=== PATIENT | male | born 1955 | race Caucasian/White ===

== ENCOUNTER 2023-07-31 14:27 | Outpatient (OUT) | payer MEDICARE, SELFPAY ==
[2023-07-31 15:40] LABS: Prostate Specific Antigen Dx 4.21 ng/mL (<=4.00)
== END 2023-07-31 14:28 | disposition home or self-care (01) ==
LOC: LAB 14:27
PROVIDERS: PCP Internal Medicine; Visit Provider Urology
DX: N40.1 Benign prostatic hyperplasia with lower urinary tract symptoms (principal); R97.20 Elevated prostate specific antigen [PSA]
CPT/HCPCS: 36415; 84153

== ENCOUNTER 2023-09-19 15:12 | Outpatient (OUT) | payer MEDICARE, SELFPAY ==
[2023-09-19 15:57] LABS: Hematocrit 35.3 % (42.0-54.0); Hemoglobin 11.7 g/dL (14.0-18.0); Mean Corpuscular HGB Conc 33.1 g/dL (29.9-35.2); Mean Corpuscular Hemoglobin 30.2 pg (25.9-34.0); Mean Corpuscular Volume 91.2 fL (80.0-94.0); Mean Platelet Volume 9.3 fL (9.5-13.5); Platelet Count 251 10^3/uL (150-450); Red Blood Count 3.87 10^6/uL (4.70-6.10); Red Cell Distribution Width 14.2 % (11.0-15.0); White Blood Count 7.1 10^3/uL (4.0-11.0)
[2023-09-19 16:15] LABS: Alanine Aminotransferase 17 U/L (16-63); Albumin Globulin Ratio 0.9; Albumin Level 3.3 g/dL (3.4-5.0); Alkaline Phosphatase 79 U/L (46-116); Anion Gap 11.7; Aspartate Amino Transferase 15 U/L (15-37); BUN Creatinine Ratio 17.4; Bilirubin Total 0.6 mg/dL (0.2-1.0); Calcium 8.9 mg/dL (8.5-10.1); Carbon Dioxide 28.5 mmol/L (21.0-32.0); Chloride 98 mmol/L (98-107); Chol HDL Ratio 1.8; Cholesterol 203 mg/dL (<=200); Estimated GFR (African America >60 (>=60); Estimated GFR (Non-African Ame >60 (>=60); Globulin 3.8 g/dL; Glucose 86 mg/dL (74-106); HDL Cholesterol 114 mg/dL (40-60); Potassium 4.2 mmol/L (3.5-5.1); Sodium 134 mmol/L (136-145); Total Protein 7.1 g/dL (6.4-8.2); Triglycerides 38 mg/dL (<=150); VLDL CHOLESTEROL 7.6 mg/dL
[2023-09-19 19:02] LABS: Lymphocytes Absolute Manual 0.42 10^3/uL (1.20-3.80); Monocytes Absolute Manual 0.71 10^3/uL (0.30-0.80); Segmented Neut Absolute Manual 5.96 10^3/uL (1.4-6.5)
== END 2023-09-19 15:13 | disposition home or self-care (01) ==
LOC: LAB 15:12
PROVIDERS: PCP Internal Medicine; Visit Provider Internal Medicine
DX: D86.0 Sarcoidosis of lung (principal); I10 Essential (primary) hypertension; I42.8 Other cardiomyopathies; E78.00 Pure hypercholesterolemia, unspecified
CPT/HCPCS: 36415; 80053; 80061; 85007; 85027

== ENCOUNTER 2024-02-01 20:08 | Emergency (ER) | payer MEDICARE, SELFPAY ==
[2024-02-01] VITALS (23 sets, daily range): BP systolic 123–160; BP diastolic 93–121; PULSE 83–142; TEMP 36.6; O2SAT 85–100; BMI 23.1
--- NOTE | 2024-02-01 20:14 | ECG_ITS ---
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
--- NOTE | 2024-02-01 20:14 | XR_ITS ---
The [address] [address] Patient Name: MARY SMALL MRN: [id number] date: 1955 Sex: M Assigned Patient Location: ED.MAIN Current Patient Location: ER Accession/Order Number: [id number] Exam Date: 02/01/2024 21:20 Report Date: 02/01/2024 22:12 At the request of: JOSUE DYER Procedure: XR chest 2V EXAM: CHEST X-RAY HISTORY: Chest pain. COMPARISON: CT chest 12/13/2021 TECHNIQUE: 1 view chest is submitted for review. FINDINGS: Lines and tubes: None. The lungs are hyperexpanded. There is a subtle opacities are seen throughout bilateral lung [place]. There is pleural thickening demonstrated bilaterally left greater than right. Trace blunting of costophrenic angles.. Calcifications are seen in the hilar regions. The cardiac silhouette is enlarged.. Comment vascularity is mildly prominent. Osseous structures are within normal limits for patient's age.. XR/XR chest 2V IMPRESSION: 1. Cardiomegaly with bibasilar hilar calcifications. Please correlate for sarcoid.. 2. Hyperexpanded lungs prominence of pleural opacities may represent effusions. However, soft tissue densities not excluded. CT scan of the chest would help better delineate. Electronically authenticated by: JOHN WATERS Date: 02/01/2024 22:12
--- OUTSIDE RECORDS SUMMARY | 2024-02-01 20:15 | XMS_ITS | CCD ---
Author Organization [facility]iniSyn[facility] Care Team Providers Care Central Supply Manager Name Role Phone Adam Wylie Unavailable Unavailable Unavailable ADAM WYLIE Primary Care Physician DO Adam Wylie Primary Care Provider DO Gregg Hilliard Attending Provider Nick Muniz Unavailable Gregg Hilliard Unavailable Adam Wylie Unavailable DR ADAM WYLIE Admitting Unavailable IVON, DR REICH Primary Care Unavailable BALL, DR REICH Consulting Unavailable BALL, DR REICH Attending Unavailable BALL, DR REICH Primary Care Unavailable GOTTI ., DR TINOCO Consulting Unavailable GOTTI ., DR TINOCO Attending Unavailable GOTTI ., DR TINOCO Admitting Unavailable IVON, DR REICH Attending Unavailable BALL, DR REICH Admitting Unavailable BALL, DR REICH Primary Care Unavailable BALL, DR REICH Consulting Unavailable ZIEBER, DR CORINNE Hernandez Consulting Unavailable BALL, DR REICH Attending Unavailable BALL, DR REICH Admitting Unavailable BALL, DR REICH Primary Care Unavailable IVON, DR REICH Consulting Unavailable ANDREA, MATTHEW Consulting Unavailable ANDREA, MATTHEW Attending Unavailable ANDREA, MATTHEW Admitting Unavailable BALL, DR REICH Primary Care Unavailable HAY ., DR GARCIA Attending Unavailable HAY ., DR GARCIA Admitting Unavailable BALL, DR REICH Primary Care Unavailable GRECHNY ., JEANETTE NORMAN Consulting UnavailJAYDEN Clayton Consulting Unavailable ANGELINA ., DR GARCIA Attending Unavailable BALL, DR REICH Primary Care Unavailable HAY ., DR GARCIA Admitting Unavailable HAY ., DR GARCIA Consulting Unavailable ANDREA, MATTHEW Consulting Unavailable DECLAN TRIPLETT Consulting Unavailable CHULA, DR GREGG Doe Consulting Unavailable JACKELINE SANCHEZ Attending Unavailable JACKELINE SANCHEZ Admitting Unavailable IVON, DR REICH Primary Care Unavailable JACKELINE SANCHEZ Consulting Unavailable Clinton GOTTI Attending Unavailable Clinton GOTTI Attending Unavailable Clinton GOTTI Attending Unavailable Adam Wylie DO Primary Care Provider STEVEN GALARZA Attending Unavailable ADAM WYLIE Primary Care Unavailable Allergies Allergy Classification Reported Allergen(s) Allergy Type Date of Onset Reaction(s) Facility (1 source) patient allergy list reviewed by nurse or physicia Propensity to adverse reactions Comment:Done Hoppit Other Medications Current Medications Medication Drug Class(es) Dates Sig (Normalized) Sig (Original) Advair Diskus 500-50 MCG/DOSE (5 sources) Start: 07-09-2018 take 1 puff(s) by inhalation twice daily Advair Diskus 500-50 MCG/DOSE 1 puff Inhalation Twice a day for 90 days Jun, Active [id number] actuat albuterol 0.09 mg/actuat metered dose inhaler (19 sources) beta2-Adrenergic Agonist Start: 09-28-2022 take 2 puff(s) by inhalation every six hours as needed Albuterol Sulfate HFA 108 (90 Base) MCG/ACT 2 puffs Inhalation every 6 hrs, as needed for 30 days September, Active Start: 09-28-2022 take 2 puff(s) by in halation every six hours as needed Albuterol Sulfate HFA 108 (90 Base) MCG/ACT 2 puffs Inhalation every 6 hrs, as needed for 30 days September, Active Start: 09-28-2022 take 2 puff(s) by in halation every six hours as needed Albuterol Sulfate HFA 108 (90 Base) MCG/ACT 2 puffs Inhalation every 6 hrs, as needed for 30 days September, Active Start: 08-16-2022 Albuterol Sulf ate (2.5 MG/3ML) 0.083% 1 unit dose Inhalation four times a day DX J44.9 COPD for 30 days Aug, Active Start: 08-16-2022 Albuterol Sulf ate (2.5 MG/3ML) 0.083% 1 unit dose Inhalation four times a day DX J44.9 COPD for 30 days Aug, Active Start: 08-02-2019 take 2 puff(s) by in halation every four hours albuterol (Ventolin HFA) 90 mcg/actuation inhaler Inhale 2 puffs every 4 hours if needed. 08/02/2019 Active Start: 08-02-2019 take 2 puff(s) by mo uth every four hours as needed for cough Ventolin HFA 108 (90 Base) MCG/ACT Inhalation Aerosol Solution INHALE 2 PUFFS BY MOUTH EVERY 4 HOURS NEEDED FOR COUGH / DYSPNEA Quantity: 36 Refills: 0 Ordered: 18-Jul-2020 DO Start : 02-Aug-2019 Active Start: 05-11-2018 take 1 puff(s) by in halation every six hours Albuterol Sulfate (Ventolin Hfa) 90 mcg/actuation Hfa Aerosol Inhaler Active 2 PUFF INHALATION Q6H May 11, 2018 9:16pm albuterol 0.833 mg/ml / ipratropium bromide 0.167 mg/ml inhalation solution (20 sources) Anticholinergic, beta2-Adrenergic Agonist Start: 09-09-2019 take 3 mL by inhalation every six hours as needed ipratropium-albuteroL (Duo-Neb) 0.5-2.5 mg/3 mL nebulizer solution Inhale 3 mL every 6 hours if needed. 09/09/2019 Active Start: 09-09-2019 Ipratropium-Al buterol 0.5-2.5 (3) MG/3ML Inhalation Solution INHALE 1 (ONE) vial via NEBULIZER TWICE DAILY - FOUR TIMES DAILY Quantity: 360 Refills: 0 Ordered: 21-May-2020 DO Start : 09-Sep-2019 Active Start: 05-11-2018 Ipratropium-Al buterol Active 3 ML INHALATION every 6 to 8 hours May 11, 2018 9:20pm Start: 05-05-2018 take 3 mL by inhalat ion four times daily Ipratropium-Albuterol 0.5-2.5 (3) MG/3ML 3 ml Inhalation Four times a day DX COPD j44.9 for 30 days Apr, Active Start: 05-05-2018 take 3 mL by inhalat ion every six hours Ipratropium-Albuterol 0.5-2.5 (3) MG/3ML 3 ml Inhalation every 6 hrs Apr, Active Albuterol Sulfate (Ventolin Hfa) 90 mcg/actuation Hfa Aerosol Inhaler (1 source) Start: 05-11-2018 take 1 puff(s) by inhalation every six hours Albuterol Sulfate (Ventolin Hfa) 90 mcg/actuation Hfa Aerosol Inhaler Active 2 PUFF INHALATION Q6H May 11, 2018 9:16pm carvedilol 12.5 mg oral tablet (20 sources) alpha-Adrenerg ic Orbert, beta-Adrenergi c Robert Start: 09-11-2019 take 1 tablet by mouth twice daily carvedilol (Coreg) 12.5 mg tablet Take 1 tablet (12.5 mg) by mouth 2 times a day. 09/13/2019 Active Start: 02-10-2019 take 6.25 mg by mout h twice daily Carvedilol Active 6.25 MG PO Twice daily February 10, 2019 12:09am Start: 05-13-2018 End: 02-10-2019 take 1 tablet by mouth twice daily Carvedilol 12.5 MG Oral Tablet TAKE 1 TABLET BY MOUTH TWICE DAILY Quantity: 180 Refills: 3 Ordered: 14-Sep-2021 Concepción Mays Start : 13-Sep-2019 Active Start: 05-11-2018 End: 05-13-2018 take 6.25 mg by mouth twice daily Carvedilol Discontinued 6.25 MG PO Twice daily May 11, 2018 9:16pm May 13, 2018 2:03pm finasteride 5 mg oral tablet (20 sources) 5-alpha Reductase Inhibitor Start: 02-17-2020 take 1 tablet by mouth once daily finasteride 5 mg Tab 5 mg = 1 tab(s), Oral, Daily, # 90 tab(s), Refills(s) 3, Pharmacy: [id number], 182, cm, 08/14/23 15:22:00 EDT, Height/Length Dosing, 82, kg, 08/14/23 15:22:00 EDT, Weight Dosing Start Date: 08/14/23 Status: Ordered fluticasone propionate 0.05 mg/actuat metered dose nasal spray (12 sources) Corticosteroid Start: 09-11-2019 fluticasone 0.05 mg/inh Nasal [place] Nasal, Daily, Refill(s) 0 Start Date: 09/11/19 Status: Ordered Start: 05-11-2018 End: 02-10-2019 Fluticasone Propionate Disco ntinued 1 SPRAY INTRANASAL Daily May 11, 2018 9:20pm February 10, 2019 12:13am Start: 05-05-2018 take 1 spray(s) nasa l route once daily Fluticasone Propionate 50 MCG/ACT 1 spray in each nostril Nasally Once a day for 21 days Apr, Active Start: 05-05-2018 take 1 spray(s) nasa l route once daily Fluticasone Propionate 50 MCG/ACT 1 spray in each nostril Nasally Once a day for 21 days Apr, Active 60 actuat fluticasone propionate 0.5 mg/actuat / salmeterol 0.05 mg/actuat dry powder inhaler (12 sources) Corticosteroid, beta2-Adrenergic Agonist Start: 08-14-2023 Wixela Inhub 50 0 mcg-50 mcg inhalation powder Refill(s) 0 Start Date: 08/14/23 Status: Ordered Start: 09-11-2019 Advair 100 mcg -50 mcg Powder inh, Inhalation, BID, Refill(s) 0 Start Date: 09/11/19 Status: Ordered Start: 07-09-2018 take 1 puff(s) by in halation twice daily Advair Diskus 500-50 MCG/ACT 1 puff Inhalation Twice a day for 90 days Jun, Active Start: 05-13-2018 Fluticasone Pr opion-Salmeterol (Advair Hfa) 230-21 mcg/actuation HFA aerosol inhaler Active 2 INH INHALATION Twice daily May 13, 2018 3:28pm Start: 05-11-2018 End: 05-13-2018 Fluticasone Propion-Salmeter ol (Advair Diskus) 500-50 mcg/dose Blister With Device Discontinued 1 INH INHALATION Twice daily May 11, 2018 9:16pm May 13, 2018 2:03pm fluticasone 0.05 mg/inh Nasal [place] (2 sources) Start: 09-11-2019 fluticasone 0. 05 mg/inh Nasal [place] Nasal, Daily, Refill(s) 0 Start Date: 09/11/19 Status: Ordered furosemide 20 mg oral tablet (12 sources) Loop Diuretic Start: 03-28-2022 furosemide 20 mg Tab Refills(s) 0 Start Date: 08/09/21 Status: Ordered Start: 05-13-2018 End: 02-10-2019 take 1 tablet by mouth once daily Furosemide (Lasix) 40 mg tablet Discontinued 40 MG PO Daily May 13, 2018 2:18pm February 10, 2019 12:10am ipratropium bromide 0.2 mg/ml inhalation solution (10 sources) Anticholinergic Start: 08-16-2022 take 1 [IU] by inhalation four times daily Ipratropium [place] 0.02 % 1 unit dose Inhalation four times a day DX J44.9 COPD for 30 days Aug, Active Start: 08-16-2022 take 1 [IU] by inhal ation four times daily Ipratropium [place] 0.02 % 1 unit dose Inhalation four times a day DX J44.9 COPD for 30 days Aug, Active Start: 09-11-2019 ipratropium mi crogram, QID, Refills(s) 0 Start Date: 09/11/19 Status: Ordered multivitamin (Multiple Vitamins) tablet (1 source) Start: 12-15-2016 take 1 tablet by mouth once daily multivitamin (Multiple Vitamins) tablet Take 1 tablet by mouth once daily. 12/15/2016 Active Oxygen 2 liters pm and prn day (9 sources) Oxygen 2 liters pm and prn day at night and during the day prn Active pantoprazole 40 mg delayed release oral tablet (5 sources) Proton Pump Inhibitor Start: 08-14-[address] Tab Refills(s) 0 Start Date: 08/14/23 Status: Ordered Start: 03-01-2023 Pantoprazole S odium 40 MG 1 tablet Orally Once a day, on an empty stomach 30 minutes prior to bkfst for 90 days Feb, Active take 1 tablet by melissa th once daily before mealtime pantoprazole (ProtoNix) 20 mg EC tablet Take 1 tablet (20 mg) by mouth once daily in the morning. Take before meals. Do not crush, chew, or split. Active predniSONE 5 mg oral tablet (20 sources) Start: 02-10-2019 take 5 mg by mouth once daily Prednisone Active 5 MG PO Daily February 10, 2019 12:07am Start: 07-06-2018 End: 02-10-2019 Prednisone Discontinued 20 M G PO As Directed July 06, 2018 1:40pm February 10, 2019 12:07am administer with food or milk. Take 40mg for 3 days,then 20 mg for 3 days, then 10 mg for 3 days, then continue 5 mg as you used to take Start: 11-18-2010 End: 07-06-2018 take 5 mg by mouth once daily predniSONE 5 mg, Oral, D aily, Refills(s) 0 Start Date: 09/11/19 Status: Ordered sacubitril 24 mg / valsartan 26 mg oral tablet (20 sources) Angiotensin 2 Receptor Robert Start: 05-11-2018 End: 10-12-2024 take 1 tablet by mouth twice daily sacubitriL-valsartan (Entresto) 24-26 mg tablet Indications: Non-ischemic cardiomyopathy (Multi) Take 1 tablet by mouth 2 times a day. 180 tablet 3 10/13/2023 10/12/2024 Active Start: 08-04-2015 take 1 tablet by melissa twice daily Entresto 49-51 MG Oral Tablet TAKE 1 TABLET BY MOUTH TWICE DAILY Quantity: 60 Refills: 0 Ordered: 29-Dec-2015 DO Start : 04-Aug-2015 Active ENTRESTO 24 mg/2 6 mg 1 orally twice a day Active tamsulosin hydrochloride 0.4 mg oral capsule (20 sources) alpha-Adrenergic Robert Start: 10-25-2021 End: 10-25-2021 take 0.4 mg by mouth once daily Tamsulosin Discontinued 0.4 MG PO Daily October 25, 2021 2:08pm October 25, 2021 2:10pm Start: 12-16-2019 End: 12-16-2021 take 1 capsule by mouth twice daily tamsulosin 0.4 mg Cap 0.4 mg = 1 cap(s), Oral, BID, # 180 cap(s), Refills(s) 3, Pharmacy: [id number], 182, cm, 11/28/22 13:12:00 EDT, Height/Length Dosing, 77.5, kg, 11/28/22 13:12:00 EDT, Weight Dosing Start Date: 01/10/23 Status: Ordered Thera Vitamin (9 sources) Thera Vitamin Active tiotropium 0.018 mg inhalation powder (2 sources) Anticholinergic Start: 05-11-2018 take 1 capsule by inhalation once daily Tiotropium [place] (Spiriva With Handihaler) 18 mcg Capsule, W/Inhalation Device Active 1 CAP INHALATION Daily May 11, 2018 9:16pm Ventolin HFA 90 mcg/inh Aerosol-Adpt (1 source) Start: 08-14-2023 Ventolin HFA 90 mcg/inh Aerosol-Adpt Refill(s) 0 Start Date: 08/14/23 Status: Ordered Completed/Discontinued Medications Medication Drug Class(es) Dates Sig (Normalized) Sig (Original) amoxicillin 875 mg oral tablet (2 sources) Penicillin-class Antibacterial Start: 8 End: 9 take 875 mg by mouth twice daily Amoxicillin Discontinued 875 MG PO Twice daily May 11, 2018 9:16pm July 05, 2018 2:03am amoxicillin 875 mg / clavulanate 125 mg oral tablet (2 sources) Penicillin-class Antibacterial Start: 9 End: 2 take 1 tablet by mouth every twelve hours Amoxicillin-Pot Clavulanate (Augmentin) 875-125 mg tablet Discontinued 1 TAB PO Q12H 20 February 11, 2019 12:26pm October 25, 2021 2:09pm Eat yogurt or take probiotic while on antibiotic. cephalexin 500 mg oral capsule (2 sources) Cephalosporin Antibacterial Start: 9 End: 9 take 500 mg by mouth twice daily Cephalexin Discontinued 500 MG PO Twice daily 10 5 July 06, 2018 1:40pm February 10, 2019 12:10am methylPREDNISolone 4 mg oral tablet (2 sources) Corticosteroid Start: 8 End: 9 take 1 tablet by mouth once Methylprednisolone (Medrol (Man)) 4 mg tablets,dose pack Discontinued 0 PO per package directions May 13, 2018 2:21pm July 06, 2018 1:34pm PO PER PKG DIR Multiple Vitamins Oral Tablet (8 sources) Start: 7 Multiple Vitamins Oral Tablet Quantity: 0 Refills: 0 Ordered: 15-Dec-2016 DO Start : 15-Dec-2016 Active polysaccharide iron complex 150 mg oral capsule (2 sources) Start: 8 End: 09-29-201 9 Polysaccharide Iron Complex (Ferrex 150) 150 mg iron Capsule Discontinued 150 MG PO Daily May 11, 2018 9:16pm February 10, 2019 12:11am Problems Active Problems Problem Classification Problem Date Documented Date Episodic/Chronic Abdominal hernia (9 sources) Hiatal hernia; Translations: [Diaphragmatic hernia without obstruction or gangrene] Episodic Administrative/social admission (3 sources) Drug indicated; Translations: [Long-term current use of steroids] Episodic Alcohol-related disorders (1 source) Nondependent alcohol abuse; Translations: [Nondependent alcohol abuse, unspecified pattern of use] Onset: 01-21-2015 Chronic Allergic reactions (1 source) Allergic bronchopulmonary aspergillosis; Translations: [Allergic bronchopulmonary aspergillosis] Onset: 08-12-2015 Chronic Chronic obstructive pulmonary disease and bronchiectasis (20 sources) Chronic obstructive lung disease; Translations: [Chronic airway obstruction, not elsewhere classified] Onset: 2021 Resolved: 10-05-2021 09-11-2019 Chronic Conditions associated with dizziness or vertigo (11 sources) Vertigo; Translations: [Dizziness and giddiness] Onset: 07-26-2023 02-10-2019 Episodic Congestive heart failure; nonhypertensive (12 sources) Chronic systolic heart failure; Translations: [Chronic systolic (congestive) heart failure] 02-10-2019 Chronic Deficiency and other anemia (2 sources) Chronic anemia; Translations: [Anemia in other chronic diseases classified elsewhere] 02-10-2019 Chronic Deficiency and other anemia (1 source) Anemia due to chronic blood loss; Translations: [Iron deficiency anemia secondary to blood loss (chronic)] Onset: 01-10-2016 Chronic Deficiency and other anemia (8 sources) Anemia; Translations: [Anemia, unspecified] 10-26-2021 Episodic Deficiency and other anemia (2 sources) Anemia, unspecified; Translations: [Anemia, unspecified] Onset: 10-07-2021 Resolved: 10-07-2021 Episodic Deficiency and other anemia (9 sources) Iron deficiency anemia; Translations: [Iron deficiency anemia, unspecified] Episodic Diverticulosis and diverticulitis (9 sources) Diverticular disease; Translations: [Diverticulosis of intestine, part unspecified, without perforation or abscess without bleeding] Chronic Esophageal disorders (6 sources) Gastro-esophageal reflux disease with esophagitis; Translations: [Gastroesophageal reflux disease with esophagitis without hemorrhage] Onset: 10-13-2021 Chronic Essential hypertension (17 sources) Hypertensive disorder; Translations: [Essential (primary) hypertension] Onset: 10-09-2015 09-11-2019 Chronic Fluid and electrolyte disorders (9 sources) Hyponatremia; Translations: [Hypo-osmolality and hyponatremia] Onset: 09-18-2015 02-10-2019 Episodic Genitourinary symptoms and ill-defined conditions (4 sources) Urinary incontinence 02-17-2020 Chronic Genitourinary symptoms and ill-defined conditions (20 sources) Retention of urine; Translations: [Retention of urine, unspecified] Onset: 08-02-2016 Episodic Gout and other crystal arthropathies (5 sources) Gout; Translations: [Primary gout] Onset: 12-11-2015 09-11-2019 Chronic Hemorrhoids (11 sources) Internal hemorrhoids; Translations: [Other hemorrhoids] 02-10-2019 Episodic Hyperplasia of prostate (17 sources) Benign prostatic hypertrophy with outflow obstruction; Translations: [Benign prostatic hyperplasia with lower urinary tract symptoms] Onset: 06-24-2016 Chronic Immunity disorders (20 sources) Pulmonary sarcoidosis; Translations: [Sarcoidosis] Onset: 11-11-2015 Resolved: 2021 05-11-2018 Chronic Immunizations and screening for infectious disease (1 source) Vaccination given; Translations: [Encounter for immunization] Episodic Malaise and fatigue (3 sources) Other fatigue; Translations: [Fatigue] Onset: 06-24-2016 Episodic Mood disorders (4 sources) Depressive disorder 09-11-2019 Chronic Mycoses (9 sources) Aspergillosis; Translations: [Aspergillosis, unspecified] Episodic Osteoarthritis (1 source) Localized, primary osteoarthritis of the pelvic region and thigh; Translations: [Unilateral primary osteoarthritis, right hip] Chronic Other aftercare (2 sources) Other long-term (current) drug therapy; Translations: [OTH TOBACCO HANGER CURRENT DRUG THERAPY] Onset: 09-08-2022 Episodic Other aftercare (1 source) Long-term current use of drug therapy; Translations: [Other terminal gauger (current) drug therapy] Episodic Other and ill-defined heart disease (10 sources) Mural thrombus of left ventricle; Translations: [Acute myocardial infarction of unspecified site, episode of care unspecified] Onset: 07-26-2023 10-13-2023 Chronic Other and ill-defined heart disease (10 sources) Diastolic dysfunction; Translations: [Heart disease, unspecified] Onset: 07-26-2023 10-13-2023 Chronic Other and ill-defined heart disease (2 sources) Intracardiac thrombosis, not elsewhere classified; Translations: [Intracardiac thrombosis, not elsewhere classified] Onset: 07-26-2023 Chronic Other and ill-defined heart disease (2 sources) Other ill-defined heart diseases; Translations: [Other ill-defined heart diseases] Onset: 07-26-2023 Chronic Other and unspecified benign neoplasm (9 sources) Cerebellopontine angle tumor; Translations: [Benign neoplasm of cranial nerves] Onset: 07-26-2023 07-26-2023 Chronic Other and unspecified benign neoplasm (2 sources) Benign neoplasm of cranial nerves; Translations: [BENIGN NEOPLASM OF CRANIAL NERVES] Onset: 12-16-2021 Chronic Other and unspecified benign neoplasm (3 sources) Acoustic neuroma; Translations: [Benign neoplasm of cranial nerves] Chronic Other and unspecified benign neoplasm (9 sources) History of polyp of colon; Translations: [Personal history of colonic polyps] 10-26-2021 Episodic Other and unspecified benign neoplasm (3 sources) Personal history of colonic polyps; Translations: [Personal history of colonic polyps] Onset: 10-07-2021 Resolved: 10-07-2021 Episodic Other and unspecified benign neoplasm (9 sources) Benign neoplasm of cecum; Translations: [Benign neoplasm of cecum] Episodic Other and unspecified benign neoplasm (1 source) Benign neoplasm of sigmoid colon; Translations: [Benign neoplasm of sigmoid colon] Episodic Other diseases of kidney and ureters (1 source) Urinary tract obstruction; Translations: [Other obstructive and reflux uropathy] Onset: 08-09-2021 Episodic Other ear and sense organ disorders (9 sources) Asymmetrical sensorineural hearing loss; Translations: [Sensorineural hearing loss, asymmetrical] Onset: 07-26-2023 07-26-2023 Chronic Other ear and sense organ disorders (9 sources) Bilateral hearing loss; Translations: [Mixed hearing loss, bilateral] Onset: 07-26-2023 07-26-2023 Chronic Other endocrine disorders (4 sources) Syndrome of inappropriate secretion of antidiuretic hormone; Translations: [SYNDROME INAPPROPRIATE SEC ADH] Onset: 12-13-2021 Chronic Other endocrine disorders (1 source) Syndrome of inappropriate vasopressin secretion; Translations: [Syndrome of inappropriate secretion of antidiuretic hormone] Chronic Other endocrine disorders (1 source) Hypercortisolism; 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] Onset: 09-18-2015 Chronic Other infections; including parasitic (1 source) H/O: infectious disease; Translations: [Personal history of other infectious and parasitic diseases] Episodic Other lower respiratory disease (9 sources) Post-inflammatory pulmonary fibrosis; Translations: [Other interstitial pulmonary diseases with fibrosis in diseases classified elsewhere] Chronic Other lower respiratory disease (1 source) Other interstitial pulmonary diseases with fibrosis in diseases classified elsewhere Onset: 2021 Resolved: 2021 Chronic Other lower respiratory disease (1 source) Parietoalveolar pneumopathy; Translations: [Interstitial pulmonary disease, unspecified] Chronic Other lower respiratory disease (1 source) Diffuse interstitial pulmonary fibrosis; Translations: [Other interstitial pulmonary diseases with fibrosis in diseases classified elsewhere] Onset: 05-18-2018 Chronic Other lower respiratory disease (8 sources) Disorder of lung; Translations: [Respiratory abnormality, unspecified] Episodic Other lower respiratory disease (1 source) Hypoxemia; Translations: [Hypoxemia] Episodic Other lower respiratory disease (1 source) Dyspnea; Translations: [Other forms of dyspnea] Episodic Other nervous system disorders (10 sources) Impairment of balance; Translations: [Abnormality of gait] Onset: 07-26-2023 10-13-2023 Episodic Other nervous system disorders (2 sources) Other abnormalities of gait and mobility; Translations: [Other abnormalities of gait and mobility] Onset: 07-26-2023 Episodic Other non-traumatic joint disorders (1 source) Pain in right hip joint; Translations: [Pain in right hip] Episodic Other screening for suspected conditions (not mental disorders or infectious disease) (15 sources) Raised prostate specific antigen; Translations: [Elevated prostate specific antigen [PSA]] Onset: 08-09-2021 Episodic [place]-; endo-; and myocarditis; cardiomyopathy (except that caused by tuberculosis or sexually transmitted disease) (20 sources) Cardiomyopathy; Translations: [Other primary cardiomyopathies] Onset: 11-30-2021 02-10-2019 Chronic Pneumonia (except that caused by tuberculosis or sexually transmitted disease) (4 sources) Pneumonia, unspecified organism; Translations: [Infective pneumonia] Onset: 04-22-2015 Episodic Residual codes; unclassified (10 sources) Body mass index 20-24 - normal; Translations: [Body Mass Index between 19-24, adult] Onset: 10-13-2023 10-13-2023 Episodic Residual codes; unclassified (8 sources) History finding; Translations: [Other specified conditions influencing health status] Episodic Residual codes; unclassified (8 sources) History of clinical finding in subject; Translations: [Personal history of other specified diseases] Episodic Residual codes; unclassified (8 sources) History of heartburn; Translations: [Personal history of other diseases of digestive system] Episodic Residual codes; unclassified (2 sources) Body mass index (BMI) 23.0-23.9, adult; Translations: [Body mass index (BMI) 23.0-23.9, adult] Onset: 10-13-2023 Episodic Respiratory failure; insufficiency; arrest (adult) (2 sources) Chronic hypoxemic respiratory failure; Translations: [Chronic respiratory failure with hypoxia] 02-10-2019 Chronic Respiratory failure; insufficiency; arrest (adult) (2 sources) Acute respiratory failure; Translations: [Acute respiratory failure, unspecified whether with hypoxia or hypercapnia] 05-11-2018 Episodic Retinal detachments; defects; vascular occlusion; and retinopathy (1 source) Venous retinal branch occlusion; Translations: [Tributary (branch) retinal vein occlusion, right eye, stable] Chronic Spondylosis; intervertebral disc disorders; other back problems (8 sources) Lumbar spondylosis; Translations: [Spondylosis without myelopathy or radiculopathy, lumbar region] Chronic Unclassified (2 sources) COUGH, UNSPECIFIED; Translations: [COUGH, UNSPECIFIED] Onset: 04-21-2022 Unclassified (1 source) CONTACT W/AND (SUSP) EXPOS COVID-19; Translations: [CONTACT W/AND (SUSP) EXPOS COVID-19] Onset: 04-21-2022 Unclassified (1 source) Long-term current use of steroid; Translations: [Long-term (current) use of steroids] Onset: 06-28-2017 Unclassified (1 source) Other certain sequelae of myocardial infarction, not elsewhere classified; Translations: [Other certain sequelae of myocardial infarction, not elsewhere classified] Onset: 01-21-2015 Urinary tract infections (2 sources) Urinary tract infectious disease; Translations: [Urinary tract infection, site not specified] Onset: 08-14-2023 Episodic Past or Other Problems Problem Classification Problem Date Documented Date Episodic/Chronic Acute posthemorrhagic anemia (1 source) Acute posthemorrhagic anemia; Translations: [Acute posthemorrhagic anemia] Onset: 04-22-2015 Episodic Esophageal disorders (3 sources) Esophageal disorders; Translations: [Gastro-esophageal reflux disease with esophagitis, without bleeding] Onset: 10-26-2021 Nonspecific chest pain (1 source) Chest pain, unspecified; Translations: [CHEST PAIN UNSPECIFIED] Onset: 11-22-2021 Episodic Other acquired deformities (1 source) Acquired deformity of head; Translations: [Other acquired deformity of head] Resolved: 05-27-2020 Episodic Other connective tissue disease (3 sources) Other specified soft tissue disorders; Translations: [OTHER SPEC SOFT TISSUE DISORDERS] Onset: 05-16-2022 Episodic Other diseases of veins and lymphatics (1 source) Peripheral venous insufficiency; Translations: [Unspecified venous (peripheral) insufficiency] Onset: 02-21-2017 Episodic Other lower respiratory disease (3 sources) Hemoptysis; Translations: [Hemoptysis] Resolved: 05-27-2020 02-10-2019 Episodic Other lower respiratory disease (1 source) Shortness of breath; Translations: [SHORTNESS OF BREATH] Onset: 04-21-2022 Episodic Other upper respiratory infections (1 source) Acute upper respiratory infection, unspecified; Translations: [ACUTE UP RESPIRATORY INFECTION UNS] Onset: 04-21-2022 Episodic Residual codes; unclassified (1 source) Localized edema; Translations: [LOCALIZED EDEMA] Onset: 05-17-2022 Episodic Residual codes; unclassified (1 source) Edema; Translations: [Edema] Onset: 06-24-2016 Episodic Substance-related disorders (3 sources) Nicotine dependence, other tobacco product, uncomplicated; Translations: [Nicotine dependence, cigarettes, uncomplicated] Onset: 11-22-2021 Resolved: 10-13-2023 10-13-2023 Chronic Unclassified (1 source) COUGH, UNSPECIFIED; Translations: [COUGH, UNSPECIFIED] Onset: 04-19-2022 Unclassified (1 source) Never smoked tobacco; Translations: [Never a smoker] Unclassified (1 source) Onset: 10-13-2023 10-13-2023 Results Test Name Value Interpretation Reference Range Facility Ambulatory Visit Summaryon 0 08-14-2023 Ambulatory Visit Summary MARY SMALL :1955 Visit Date:08/14/2023 Ambulatory Visit Instructions Your Diagnosis Elevated PSA BPH with urinary obstruction UTI (urinary tract infection) Incomplete bladder emptying Nocturia Your Care Team Attending Physician - Clinton GOTTI MD Primary Care Physician - ADAM WYLIE DO This Is Your Medications List finasteride (finasteride 5 mg Tab) tamsulosin (tamsulosin 0.4 mg Cap) Contact prescribing physician if questions or concerns albuterol (Ventolin HFA 90 mcg/inh Aerosol-Adpt) fluticasone-salmeterol (Wixela Inhub 500 mcg-50 mcg inhalation powder) ipratropium pantoprazole (Pantoprazole [address] Tab) predniSONE sacubitril-valsartan (Entresto 24 mg-26 mg oral tablet) Procedures Performed Urodynamics (09/22/2020), Cystoscopy (08/24/2020), Colonoscopy, Hemorrhoidectomy. Discharge Vitals Heart Rate (Peripheral) 80 Respiratory Rate 16 Blood Pressure 132/74 Height 182 cm Height 72 in Weight 82 kg Weight 180.4 lb BMI 24.76 What to do next Scheduled Follow-Up Appointments Monday 1:15 PM EDT With: Clinton GOTTI MD Where: [facility] Patient Educationon 08-14-19 24 Patient Education Urology Benign Prostatic Hyperplasia Benign prostatic hyperplasia (BPH) is an enlarged prostate gland that is caused by the normal aging process. The prostate may get bigger as a man gets older. The condition is not caused by cancer. The prostate is a walnut-sized gland that is involved in the production of semen. It is located in front of the rectum and below the bladder. The bladder stores urine. The urethra carries stored urine out of the body. An enlarged prostate can press on the urethra. This can make it harder to pass urine. The buildup of urine in the bladder can cause infection. Back pressure and infection may progress to bladder damage and kidney (renal) failure. What are the causes? This condition is part of the normal aging process. However, not all men develop problems from this condition. If the prostate enlarges away from the urethra, urine flow will not be blocked. If it enlarges toward the urethra and compresses it, there will be problems passing urine. What increases the risk? This condition is more likely to develop in men older than 50 years. What are the signs or symptoms? Symptoms of this condition include: ? Getting up often during the night to urinate. ? Needing to urinate frequently during the day. ? Difficulty starting urine flow. ? Decrease in size and strength of your urine stream. ? Leaking (dribbling) after urinating. ? Inability to pass urine. This needs immediate treatment. ? Inability to completely empty your bladder. ? Pain when you pass urine. This is more common if there is also an infection. ? Urinary tract infection (UTI). How is this diagnosed? This condition is diagnosed based on your medical history, a physical exam, and your symptoms. Tests will also be done, such as: ? A post-void bladder scan. This measures any amount of urine that may remain in your bladder after you finish urinating. ? A digital rectal exam. In a rectal exam, your health care provider checks your prostate by putting a lubricated, gloved finger into your rectum to feel the back of your prostate gland. This exam detects the size of your gland and any abnormal lumps or growths. ? An exam of your urine (urinalysis). ? A prostate specific antigen (PSA) screening. This is a blood test used to screen for prostate cancer. ? An ultrasound. This test uses sound waves to electronically produce a picture of your prostate gland. Your health care provider may refer you to a specialist in kidney and prostate diseases (urologist). How is this treated? Once symptoms begin, your health care provider will monitor your condition (active surveillance or watchful waiting). Treatment for this condition will depend on the severity of your condition. Treatment may include: ? Observation and yearly exams. This may be the only treatment needed if your condition and symptoms are mild. ? Medicines to relieve your symptoms, including: ? Medicines to shrink the prostate. ? Medicines to relax the muscle of the prostate. ? Surgery in severe cases. Surgery may include: ? Prostatectomy. In this procedure, the prostate tissue is removed completely through an open incision or with a laparoscope or robotics. ? Transurethral resection of the prostate (TURP). In this procedure, a tool is inserted through the opening at the tip of the penis (urethra). It is used to cut away tissue of the inner core of the prostate. The pieces are removed through the same opening of the penis. This removes the blockage. ? Transurethral incision (TUIP). In this procedure, small cuts are made in the prostate. This lessens the prostate's pressure on the urethra. ? Transurethral microwave thermotherapy (TUMT). This procedure uses microwaves to create heat. The heat destroys and removes a small amount of prostate tissue. ? Transurethral needle ablation (TUNA). This procedure uses radio frequencies to destroy and remove a small amount of prostate tissue. ? Interstitial laser coagulation (ILC). This procedure uses a laser to destroy and remove a small amount of prostate tissue. ? Transurethral electrovaporization (TUVP). This procedure uses electrodes to destroy and remove a small amount of prostate tissue. ? Prostatic urethral lift. This procedure inserts an implant to push the lobes of the prostate away from the urethra. Follow these instructions at home: ? Take [id number] and prescription medicines only as told by your health care provider. ? Monitor your symptoms for any changes. Contact your health care provider with any changes. ? Avoid drinking large amounts of liquid before going to bed or out in public. ? Avoid or reduce how much caffeine or alcohol you drink. ? Give yourself time when you urinate. ? Keep all follow-up visits. This is important. Contact a health care provider if: ? You have unexplained back pain. ? Your symptoms do not get better with treatment. ? You develop side effects from the medicine (more content not included)... Normal [facility] Urology Office/Clinic Noteon 08-14-2023 Urology Office/Clinic Note Chief Complaint 6m PSA HPI Staff 9m PSA DX: BPH, Incomplete Bladder Emptying & Elevated PSA *Flomax 0.4mg BID & Finasteride 5mg qd therapy- pt still taking Tamsulosin, does not think he is taking Finasteride. Per external pharmacy import, Finasteride 90 day supply last filled 03/01/23. Last PSA 09/02/22 *1.00 CIC once a day. Does void on his own also. Cathing at night/in the evening. CIC usually empties 8oz each time. Occasionally gets up 1x/night. Does have to strain to void during the day. Steady stream. Has been having difficulties obtaining catheters. History of Present Illness Tests reviewed: reviewed UA I have reviewed the previous health record information and history for this patient from Dr. Gotti. I have reviewed and verified the staff HPI to be accurate for this encounter. Review of Systems PHQ Score Initial Depression Screen Score: 0 SCORE ROS - Provider Constitutional: denies weight loss, denies hot flashes. Eyes: denies eye problems. Gastrointestinal: denies nausea, denies vomiting. Cardiovascular: denies chest pain or angina. Integumentary: no dryness Musculoskeletal: denies musculoskeletal symptoms. ENMT: denies otolaryngeal symptoms. Respiratory: no shortness of breath. Heme/Lymph: denies easy bleeding tendency, denies easy bruising tendency. Psychiatric: no confusion, no anxiety. Genitourinary: See HPI. Physical Exam Vitals & Measurements HR: 80(Peripheral) RR: 16 BP: 132/74 HT: 72 in HT: 182 cm WT: 82 kg WT: 180.4 lb BMI: 24.76 General Appearance: alert, no distress, well nourished, well developed male. Genitourinary: normal scrotum, normal testes, normal urethra, normal epididymis, normal vas deferens/spermatic cord. Flank Pain: none. Bladder: nonpalpable. Assessment/Plan 1. Elevated PSA (R97.20: Elevated prostate specific antigen [PSA]) PSA 01/30/20 - 1.71 (3.42 Finasteride) 02/07/22 - 1.39 (2.78 Finasteride) 09/02/22 - 1.00 (2.00 Finasteride) 07/31/23 - 4.21 PSA has increased from prior, likely due to pt no longer taking Finasteride and possibility of infection given UA today. Will continue to monitor PSA for now. -PSA in 6 mos 2. BPH with urinary obstruction (N40.1: Benign prostatic hyperplasia with lower urinary tract symptoms) S/p Cysto done 08/24/20 - bilobar obstruction. Urodynamics 09/22/20 - low pressure. Taking Tamsulosin 0.4mg bid. Stopped taking Finasteride 5mg qd, unsure of how long ago. -Cont Tamsulosin as above -Restart Finasteride. Refills sent to [facility]. 3. UTI (urinary tract infection) (N39.0: Urinary tract infection, site not specified) UA today shows trace-lysed blood, large leuks, and positive nitrites. Denies any pain/burning with urination. Denies odorous urine. Given pt is asx and does CIC, no need for treatment. 4. Incomplete bladder emptying (R33.9: Retention of urine, unspecified) CIC 1x/day. Typically does CIC in the evening. Output 8-12oz. Educated pt CIC contributes to infection. 5. Nocturia (R35.1: Nocturia) 1x/night, not bothersome. Follow-up With When Contact Information EMERSON SALMON, Clinton Hernandez, URL [facility] [address], [place] [address] [phone] Additional Instructions: 6 mos w/ PSA Patient Education Benign Prostatic Hyperplasia I, Rhonda Temple, personally scribed for Dr. Gotti on 08/14/2023 16:09:46. . Documentation recorded by the scribe, Rhonda Temple, accurately reflects the services(s) I performed and decisions made by me. Authenticated by Dr. Gotti on 08/14/2023 16:12:29. Problem List/Past Medical History Ongoing BPH with urinary obstruction COPD (chronic obstructive pulmonary disease) Depression Elevated PSA Gout Hypertension Incomplete bladder emptying Leaking of urine Microscopic hematuria Nocturia Urgency of urination Urinary retention UTI (urinary tract infection) Weak urinary stream Historical No qualifying data Procedure/Surgical History Urodynamics (09/22/2020), Cystoscopy (08/24/2020), Colonoscopy, Hemorrhoidectomy. Medications Entresto 24 mg-26 mg oral tablet, 1 tab(s), Oral, BID finasteride 5 mg Tab, 5 mg= 1 tab(s), Oral, Daily, 3 refills, Not taking: does not think he is taking ipratropium, QID Pantoprazole [address] Tab predniSONE, 5 mg, Oral, Daily tamsulosin 0.4 mg Cap, 0.4 mg= 1 cap(s), Oral, BID, 3 refills Ventolin HFA 90 mcg/inh Aerosol-Adpt Wixela Inhub 500 mcg-50 mcg inhalation powder Allergies No Known Allergies Social History Tobacco Never (less than 100 in lifetime) Tobacco Use:. Never Smokeless Tobacco Use:. Household tobacco concerns: No. Yes, 08/14/2023 Family History Diabetes mellitus type 1: Mother. Immunizations Vaccine Date Status Comments influenza virus vaccine, inactivated 03/02/2022 Recorded influenza virus vaccine, inactivated 03/26/2021 Recorded SARS-CoV-2 (COVID-19) mRNA BNT-162b2 vax 03/26/2021 Recorded influenza virus v (more content not included)... [facility] Comment on above: Result Comment: Elec tronically Signed By: Clinton GOTTI MD\.br\Date and Time Signed: 08/14/23 16:12 EDT\.br\Electronically Co-Signed By: Rhonda Temple\.br\Date and Time Co-Signed: 08/14/23 16:10 EDT Lab Reportson 08-01-2023 Lab Reports [id number] [id number] F [facility] Ambulatory Visit Summaryon 0 11-28-2022 Ambulatory Visit Summary STACI MARY D :1955 Visit Date:11/28/2022 Ambulatory Visit Instructions Your Diagnosis BPH with urinary obstruction Incomplete bladder emptying Elevated PSA Nocturia Tests Performed Urnls Dip Stick Auto w/o Microscopy POC [id number] Your Care Team Attending Physician - lCinton GOTTI MD Primary Care Physician - ADAM WYLIE DO This Is Your Medications List finasteride (finasteride 5 mg Tab) tamsulosin (tamsulosin 0.4 mg Cap) Contact prescribing physician if questions or concerns carvedilol fluticasone nasal (fluticasone 0.05 mg/inh Nasal [place]) fluticasone-salmeterol (Advair 100 mcg-50 mcg Powder) furosemide (furosemide 20 mg Tab) ipratropium predniSONE sacubitril-valsartan (Entresto 24 mg-26 mg oral tablet) Procedures Performed Urodynamics (09/22/2020), Cystoscopy (08/24/2020), Colonoscopy, Hemorrhoidectomy. Discharge Vitals Heart Rate (Peripheral) 68 Respiratory Rate 16 Blood Pressure 130/80 Height 182 cm Height 72 in Weight 77.5 kg Weight 170.5 lb BMI 23.4 What to do next Scheduled Follow-Up Appointments Monday 12:45 PM EST With: EMERSON SALMON, Clinton Hernandez Where: [facility] Carolina Zamudio [facility] Patient Educationon 11-29-19 23 Patient Education Urology Clean Intermittent Catheterization, Male Clean intermittent catheterization (CIC) is a procedure to remove urine from the bladder by placing a small, flexible tube (catheter) into the bladder though the urethra. The urethra is a tube in the body that carries urine from the bladder out of the body. CIC may be done when: ? You cannot completely empty your bladder on your own. This may be due to a blockage in the bladder or urethra. ? Your bladder leaks urine. This may happen when the muscles or nerves near the bladder are not working normally, so the bladder overflows. Your health care provider will show you how to perform CIC and will help you to become comfortable performing this procedure at home. Your health care provider will also help you to get the home care supplies that are needed for this procedure. Supplies needed: ? Germ-free (sterile), water-based lubricant. ? A container for urine collection. You may also use the toilet to dispose of urine from the catheter. ? A catheter. Your health care provider will determine the best size for you. ? Use this catheter size: ? Clean gloves. ? Soap and water. ? Towel. How to perform this procedure: Most people need CIC at least 4 times per day to adequately empty the bladder. Your health care provider will tell you how often you should perform CIC. ? Number of times per day to perform CIC: To perform CIC, follow these steps: 1. Wash your hands with soap and water. If soap and water are not available, use hand postdoctoral research associate. 2. Clean your penis with soap and water. Dry the tip of your penis completely. 3. Prepare the supplies that you will use during the procedure. Open the catheter package and lubricant. 4. Get in a comfortable position. Possible positions include: ? Sitting on a toilet, a chair, or the edge of a bed. ? Standing near a toilet. ? Lying down with your head raised on pillows and your knees pointing to the ceiling. You may wish to place a waterproof mat or pad under you. 5. If you are using a urine collection container, position it between your legs. 6. Urinate, if you are able. 7. Put on gloves. 8. Apply lubricant to about 2 inches (5 cm) of the tip of the catheter. 9. Set the catheter down on a clean, dry surface within reach. 10. Gently stretch your penis out from your body. Pull back any skin that covers the end of your penis (foreskin). Clean the end of your penis with medicated sterile swabs as told by your health care provider. 11. Hold your penis upward at a 45?60 degree angle. This helps to straighten the urethra. 12. Slowly insert the lubricated catheter straight into your urethra until urine flows freely. This is usually about 6?8 inches (15?20 cm). 13. When urine starts to flow freely, insert the catheter 1 inch (3 cm) more. Allow urine to drain into the toilet or the urine collection container. 14. When urine stops flowing, slowly remove the catheter. 15. Note the color, amount, and odor of the urine. 16. Measure your urine and note the amount, if told by your health care provider. 17. Discard the urine in the toilet. 18. Clean your penis using soap and water. 19. Move the foreskin back in place, if applicable. 20. If you are using a single-use catheter, discard the catheter and supplies. 21. Wash your hands with soap and water. 22. If you are using a reusable catheter, follow package instructions about how to clean the catheter after each use. How often should I perform this procedure? ? Do CIC to empty your bladder every 4?6 hours or as often as told by your health care provider. ? If you have symptoms of too much urine in your bladder (overdistension) and you are not able to urinate, perform CIC. Symptoms of overdistension may include: ? Restlessness. ? Sweating or chills. ? Headache. ? Flushed or pale skin. ? Bloated lower abdomen. What are the risks? Generally, this is a safe procedure, however problems may occur, including: ? Infection. ? Injury to the urethra. ? Irritation of the urethra. Follow these instructions at home General instructions ? Drink enough fluid to keep your urine pale yellow. ? Dispose of a multiple use catheter when it becomes dry, brittle, or cloudy. This usually happens after you use the catheter for 1 week. ? Avoid caffeine. Caffeine may make you need to urinate more frequently and more urgently. ? When traveling, bring extra supplies with you in case of delays. Keep supplies with you in a place that you can access easily. If traveling by plane: ? Make sure that the lubricant in your carry-on bag is less than 3.4 ounces (100 mL). ? Use a single-use catheter. It may be difficult to clean a reusable catheter in a small bathroom. ? Take mwuh-kyw-myhbssh and prescription medicines only as told by your he (more content not included)... Normal [facility] Urology Office/Clinic Noteon 11-28-2022 Urology Office/Clinic Note Chief Complaint 9m f/u ashley CIC HPI Staff 9m follow up to BPH, Incomplete Bladder Emptying, Elevated PSA & Nocturia. *Tamsulosin 0.4mg BID & Finasteride 5mg QD therapy. CIC BID- denies any complications. 5-10 ounces in AM & 12oz QHS. Does still void on his own at times. Weak stream, no changes since last encounter. Denies pain/burning and visible blood in urine. Last PSA 02/07/22- 1.39 History of Present Illness Tests reviewed: reviewed UA I have reviewed the previous health record information and history for this patient from Dr. Gotti. I have reviewed and verified the staff HPI to be accurate for this encounter. There have been no associated fever, chills, flank pain, or blood in the urine. Denies any urinary infections since last encounter. Review of Systems PHQ Score Initial Depression Screen Score: 0 ROS - Provider Constitutional: denies weight loss, denies hot flashes. Eyes: denies eye problems. Gastrointestinal: denies nausea, denies vomiting. Cardiovascular: denies chest pain or angina. Integumentary: no dryness Musculoskeletal: denies musculoskeletal symptoms. ENMT: denies otolaryngeal symptoms. Respiratory: no shortness of breath. Heme/Lymph: denies easy bleeding tendency, denies easy bruising tendency. Psychiatric: no confusion, no anxiety. Genitourinary: See HPI. Physical Exam Vitals & Measurements HR: 68(Peripheral) RR: 16 BP: 130/80 HT: 72 in HT: 182 cm WT: 77.5 kg WT: 170.5 lb BMI: 23.4 General Appearance: alert, no distress, well nourished, well developed male. Genitourinary: normal scrotum, normal testes, normal urethra, normal epididymis, normal vas deferens/spermatic cord. Flank Pain: none. Bladder: nonpalpable. Assessment/Plan 1. BPH with urinary obstruction (N40.1: Benign prostatic hyperplasia with lower urinary tract symptoms) S/p Cysto done 08/24/20 - bilobar obstruction. Urodynamics done 09/22/20 - low pressure. Pt is currently taking Flomax 0.4mg BID. Pt to call for refills. All questions/concerns were discussed. Pt to call the office if he encounters any issues prior. Pt acknowledges understanding. 2. Incomplete bladder emptying (R33.9: Retention of urine, unspecified) Pt is cathing BID daily, getting 5-10 oz in the morning and 10-15 oz in the evening. Pt does void during the day. Pt states his volumes have improved significantly. 3. Elevated PSA (R97.20: Elevated prostate specific antigen [PSA]) Pt is currently taking Finasteride 5mg QD. PSA 01/30/20 - 1.71 (3.42) 02/07/22 - 1.39 (2.78) Follow up with PSA in 6 months or sooner if needed. Pt understands and agrees with plan. 4. Nocturia (R35.1: Nocturia) mild, 2 times per night. [1] Follow-up With When Contact Information EMERSON SALMON, Clinton Hernandez, URL [facility] [address], [place] [address]- [phone] Additional Instructions: 6 mos w/ PSA Patient Education Clean Intermittent Catheterization, Male Benign Prostatic Hyperplasia I, Rhonda Temple, personally scribed for Dr. Gotti on 11/28/2022 14:06:06. . Documentation recorded by the scribe, Rhonda Temple, accurately reflects the services(s) I performed and decisions made by me. Authenticated by Dr. Gotti on 11/28/2022 14:09:05. Problem List/Past Medical History Ongoing BPH with urinary obstruction COPD (chronic obstructive pulmonary disease) Depression Elevated PSA Gout Hypertension Incomplete bladder emptying Leaking of urine Microscopic hematuria Nocturia Urgency of urination Urinary retention Weak urinary stream Historical No qualifying data Procedure/Surgical History Urodynamics (09/22/2020), Cystoscopy (08/24/2020), Colonoscopy, Hemorrhoidectomy. Medications Advair 100 mcg-50 mcg Powder, Inhalation, BID carvedilol, 12.5 mg, Oral Entresto 24 mg-26 mg oral tablet, 1 tab(s), Oral, BID finasteride 5 mg Tab, 5 mg= 1 tab(s), Oral, Daily, 3 refills fluticasone 0.05 mg/inh Nasal [place], Nasal, Daily furosemide 20 mg Tab ipratropium, QID predniSONE, 5 mg, Oral, Daily tamsulosin 0.4 mg Cap, 0.4 mg= 1 cap(s), Oral, BID, 3 refills Allergies No Known Allergies Social History Tobacco Never (less than 100 in lifetime) Tobacco Use:. Never Smokeless Tobacco Use:. Household tobacco concerns: No., 11/28/2022 Family History Diabetes mellitus type 1: Mother. Immunizations Vaccine Date Status influenza virus vaccine, inactivated 02/2021 Recorded SARS-CoV-2 (COVID-19) mRNA BNT-162b2 vax 09/14/2020 Recorded influenza virus vaccine, inactivated 02/2020 Recorded Lab Results Ambulatory Point of Care Results Bilirubin Urine Dipstick: Negative (11/28/22 13:08:00) Blood Urine Dipstick: Negative (11/28/22 13:08:00) Glucose Urine Dipstick: Negative (11/28/22 13:08:00) Ketones Urine Dipstick: Negative (11/28/22 13:08:00) Leukocytes Urine Dipstick: 3+ Large (11/28/22 13:08:00) Nitrite Urine Dipstick: Positive (11/28/22 13:08:00 (more content not included)... Normal [facility] Comment on above: Result Comment: Elec tronically Signed By: Clinton GOTTI MD\.br\Date and Time Signed: 11/28/22 14:09 EDT\.br\Electronically Co-Signed By: Rhonda Temple\.br\Date and Time Co-Signed: 11/28/22 14:06 EDT Retail - Clinical Noteon Retail - Clinical Note [id number]:1 [id number] Normal [facility] OSMOLALITYon 09-06-2022 Osmolality [Osmolality] 275 mosm/kg Critically low 280-301 [facility] Comment on above: Performed By: #### U YADIRA, BMP, TSH #### [facility] [address] [address] [address] Fabrizio Pascual OSMOLALITY URINEon Osmolality, Urine 422 mOsmol/kg Normal [facility] Comment on above: Result Comment: 24 h r : 300 - 900 Random: 50 - 1400 After 12hr fluid restriction: >850 Performed By: #### U YADIRA, BMP, TSH #### [facility] [address] [address] [address] Fabrizio Pascual CBC W MANUAL DIFFon 09-03-19 23 ATYPICAL LYMPH # Normal [facility] Comment on above: Performed By: #### B MEDICAL ASSISTANT FLOAT, BMP, HSTROPN #### [facility] [address] [address] [address] Fabrizio Pascual ATYPICAL LYMPH % Normal [facility] Comment on above: Performed By: #### B MEDICAL ASSISTANT FLOAT, BMP, HSTROPN #### [facility] [address] [address] [address] Fabrizio Pascual BAND # 0.1 103/ul Normal 0.0-0.3 [facility] Comment on above: Performed By: #### B MEDICAL ASSISTANT FLOAT, BMP, HSTROPN #### [facility] [address] [address] [address] Fabrizio Pascual BAND % 1 % Normal 0-5 [facility] Comment on above: Performed By: #### B MEDICAL ASSISTANT FLOAT, BMP, HSTROPN #### [facility] [address] [place] [address] Dr. Fabrizio Pascaul BASOM # 0.00 103/ul Normal 0.00-0.10 [facility] Comment on above: Performed By: #### B MEDICAL ASSISTANT FLOAT, BMP, HSTROPN #### [facility] [address] [place] [address] Dr. Fabrizio Pascual BASOM % 0.0 % Critically low 0.2-2.0 [facility] Comment on above: Performed By: #### B MEDICAL ASSISTANT FLOAT, BMP, HSTROPN #### [facility] [address] [place] [address] Dr. Fabrizio Pascual BLAST # Normal [facility] Comment on above: Performed By: #### B MEDICAL ASSISTANT FLOAT, BMP, HSTROPN #### [facility] [address] [place] [address] Dr. Fabrizio Pascual BLAST % Normal [facility] Comment on above: Performed By: #### B MEDICAL ASSISTANT FLOAT, BMP, HSTROPN #### [facility] [address] [place] [address] Dr. Fabrizio Pascual CORRECTED WBC Normal 4.0-11.0 [facility] Comment on above: Performed By: #### B MEDICAL ASSISTANT FLOAT, BMP, HSTROPN #### [facility] [address] [place] [address] Dr. Fabrizio Pascual EOS # 0.07 103/ul Normal 0.00-0.70 [facility] Comment on above: Performed By: #### B MEDICAL ASSISTANT FLOAT, BMP, HSTROPN #### [facility] [address] [place] [address] Dr. Fabrizio Pascual EOS% 1.0 % Normal 0.9-7.0 [facility] Comment on above: Performed By: #### B MEDICAL ASSISTANT FLOAT, BMP, HSTROPN #### [facility] [address] [address] [address] Fabrizio Pascual HCT 38.8 % Critically low 42.0-54.0 [facility] Comment on above: Performed By: #### B MEDICAL ASSISTANT FLOAT, BMP, HSTROPN #### [facility] [address] [address] [address] Fabrizio Pascual HGB 12.5 g/dl Critically low 14.0-18.0 [facility] Comment on above: Performed By: #### B MEDICAL ASSISTANT FLOAT, BMP, HSTROPN #### [facility] [address] [address] [address] Fabrizio Pascual LYMPHM # 0.68 103/ul Critically low 1.20-3.80 [facility] Comment on above: Performed By: #### B MEDICAL ASSISTANT FLOAT, BMP, HSTROPN #### [facility] [address] [place] [address] Dr. Fabrizio Pascual LYMPHM% 9.0 % Critically low 20.5-60.0 [facility] Comment on above: Performed By: #### B MEDICAL ASSISTANT FLOAT, BMP, HSTROPN #### [facility] [address] [place] [address] Dr. Fabrizio Pascual MCH 28.1 pg Normal 25.9-34.0 [facility] Comment on above: Performed By: #### B MEDICAL ASSISTANT FLOAT, BMP, HSTROPN #### [facility] [address] [address] [address] Fabrizio Pascual MCHC 32.2 g/dl Normal 29.9-35.2 [facility] Comment on above: Performed By: #### B MEDICAL ASSISTANT FLOAT, BMP, HSTROPN #### [facility] [address] [address] [address] Fabrizio Pascual MCV 87.2 fL Normal 80.0-94.0 [facility] Comment on above: Performed By: #### B MEDICAL ASSISTANT FLOAT, BMP, HSTROPN #### [facility] [address] [address] [address] Fabrizio Pascual METAMYELOCYTE # Normal [facility] Comment on above: Performed By: #### B MEDICAL ASSISTANT FLOAT, BMP, HSTROPN #### [facility] [address] [address] [address] Fabrizio Pascual METAMYELOCYTE % Normal [facility] Comment on above: Performed By: #### B MEDICAL ASSISTANT FLOAT, BMP, HSTROPN #### [facility] [address] [place] [address] Dr. Fabrizio Pascual MONOM# 0.82 103/ul Critically high 0.30-0.80 [facility] Comment on above: Performed By: #### B MEDICAL ASSISTANT FLOAT, BMP, HSTROPN #### [facility] [address] [address] [address] Fabrizio Pascual MONOM% 11.0 % Normal 1.7-12.0 [facility] Comment on above: Performed By: #### B MEDICAL ASSISTANT FLOAT, BMP, HSTROPN #### [facility] [address] [place] [address] Dr. Fabrizio Pascual MPV 9.2 fL Critically low 9.5-13.5 [facility] Comment on above: Performed By: #### B MEDICAL ASSISTANT FLOAT, BMP, HSTROPN #### [facility] [address] [place] [address] Dr. Fabrizio Pascual MYELOCYTE # Normal [facility] Comment on above: Performed By: #### B MEDICAL ASSISTANT FLOAT, BMP, HSTROPN #### [facility] [address] [place] [address] Dr. Fabrizio Pascual MYELOCYTE % Normal [facility] Comment on above: Performed By: #### B MEDICAL ASSISTANT FLOAT, BMP, HSTROPN #### [facility] [address] [place] [address] Dr. Fabrizio Pascual NRBC Normal [facility] Comment on above: Performed By: #### B MEDICAL ASSISTANT FLOAT, BMP, HSTROPN #### [facility] [address] [place] [address] Dr. Fabrizio Pascual PLT 272 103/ul Normal 150-450 [facility] Comment on above: Performed By: #### B MEDICAL ASSISTANT FLOAT, BMP, HSTROPN #### [facility] [address] [address] [address] Fabrizio Pascual RBC 4.45 106/ul Critically low 4.70-6.10 [facility] Comment on above: Performed By: #### B MEDICAL ASSISTANT FLOAT, BMP, HSTROPN #### [facility] [address] [place] [address] Dr. Fabrizio Pascual RDW 13.7 % Normal 11.0-15.0 [facility] Comment on above: Performed By: #### B MEDICAL ASSISTANT FLOAT, BMP, HSTROPN #### [facility] [address] [place] [address] Dr. Fabrizio Pascual SEG # 5.85 103/ul Normal 1.40-6.50 [facility] Comment on above: Performed By: #### B MEDICAL ASSISTANT FLOAT, BMP, HSTROPN #### [facility] [address] [place] [address] Dr. Fabrizio Pascual SEG % 78.0 % Critically high 43.0-75.0 [facility] Comment on above: Performed By: #### B MEDICAL ASSISTANT FLOAT, BMP, HSTROPN #### [facility] [address] [place] [address] Dr. Fabrizio Pascual WBC 7.5 103/ul Normal 4.0-11.0 [facility] Comment on above: Performed By: #### B MEDICAL ASSISTANT FLOAT, BMP, HSTROPN #### [facility] [address] [place] [address] Dr. Fabrizio Pascual PROF CHEM 8 (BAS METB)on Anion gap [Moles/Vol] 10.1 mmol/L Normal [facility] Comment on above: Performed By: #### U YADIRA, BMP, TSH #### [facility] [address] [place] [address] Dr. Fabrizio Pascual Calcium [Mass/Vol] 9.0 mg/dL Normal 8.5-10.1 [facility] Comment on above: Performed By: #### U YADIRA, BMP, TSH #### [facility] [address] [place] [address] Dr. Fabrizio Pascual Chloride [Moles/Vol] 99 mmol/L Normal 98-107 [facility] Comment on above: Performed By: #### U YADIRA, BMP, TSH #### [facility] [address] [address] [address] Fabrizio Pascual CO2 [Moles/Vol] 28.9 mmol/L Normal 21.0-32.0 [facility] Comment on above: Performed By: #### U YADIRA, BMP, TSH #### [facility] [address] [address] [address] Fabrizio Pascual Creatinine [Mass/Vol] 1.00 mg/dL Normal 0.70-1.30 [facility] Comment on above: Performed By: #### U YADIRA, BMP, TSH #### [facility] [address] [place] [address] Dr. Fabrizio Pascual EGFR-AF [place] >60 Normal >=60 [facility] Comment on above: Performed By: #### U YADIRA, BMP, TSH #### [facility] [address] [place] [address] Dr. Fabrizio Pascual EGFR-NON AF [place] >60 Normal >=60 [facility] Comment on above: Performed By: #### U YADIRA, BMP, TSH #### [facility] [address] [address] [address] Fabrizio Pascual Glucose [Mass/Vol] 111 mg/dL Critically high 74-106 [facility] Comment on above: Performed By: #### U YADIRA, BMP, TSH #### [facility] [address] [place] [address] Dr. Fabrizio Pascual Potassium [Moles/Vol] 4.0 mmol/L Normal 3.5-5.1 [facility] Comment on above: Performed By: #### U YADIRA, BMP, TSH #### [facility] [address] [place] [address] Dr. Fabrizio Pascual Sodium [Moles/Vol] 134 mmol/L Critically low 136-145 [facility] Comment on above: Performed By: #### U YADIRA, BMP, TSH #### [facility] [address] [place] [address] Dr. Fabrizio Pascual Urea nitrogen [Mass/Vol] 16.0 mg/dL Normal 7.0-18.0 [facility] Comment on above: Performed By: #### U YADIRA, BMP, TSH #### [facility] [address] [place] [address] Dr. Fabrizio Pascual Urea nitrogen/Creatinin e [Mass ratio] 16.0 mg/mg Normal [facility] Comment on above: Performed By: #### U YADIRA, BMP, TSH #### [facility] [address] [place] [address] Dr. Fabrizio Pascual SODIUM RANDOM URINEon 2022 Sodium (U) [Moles/Vol] 78 mmol/L Normal 30-90 [facility] Comment on above: Performed By: #### N AU #### [facility] [address] [place] [address] Dr. Fabrizio Pascual US TAHIR DOP LEG LTon 05-16-19 23 US TAHIR DOP LEG LT EXAMINATION: US TAHIR DOP LEG LT HISTORY: Swelling COMPARISON: No relevant comparison available. TECHNIQUE: FINDINGS: Region: left leg Thrombus: None Flow: Normal Compressibility: Normal Augmentation: Normal Other: Subq edema IMPRESSION: No deep or superficial vein thrombus *Exam performed in accordance with [employer]UM practice guidelines- Peripheral venous ultrasound, August 08, 2009. Electronically authenticated by: GREGG QUIROS Date: 2022-05-16 15:34 Normal [facility] BNPon 04-19-2022 Natriuretic peptide B (Bld) [Mass/Vol] 719.0 pg/mL Normal <=900.0 [facility] Comment on above: Performed By: #### B MEDICAL ASSISTANT FLOAT, BMP, HSTROPN #### [facility] [address] [place] [address] Dr. Fabrizio Pascual CBC AUTO DIFFon 04-19-2022 BASO # 0.0 103/ul Normal 0.0-0.1 [facility] Comment on above: Performed By: #### C BC #### [facility] [address] [place] [address] Dr. Fabrizio Pascual Basophils/100 WBC (Bld) 0.2 % Normal 0.2-2.0 [facility] Comment on above: Performed By: #### C BC #### [facility] [address] [address] [address] Fabrizio Pascual EO # 0.1 103/ul Normal 0.0-0.7 [facility] Comment on above: Performed By: #### C BC #### [facility] [address] [address] [address] Fabrizio Pascual Eosinophils/100 WBC (Bld) 1.0 % Normal 0.9-7.0 [facility] Comment on above: Performed By: #### C BC #### [facility] [address] [place] [address] Dr. Fabrizio Pascual Erythrocyte distribution width (RBC) [Ratio] 13.1 % Normal 11.0-15.0 [facility] Comment on above: Performed By: #### C BC #### [facility] [address] [place] [address] Dr. Fabrizio Pascual Hematocrit (Bld) [Volume fraction] 32.6 % Critically low 42.0-54.0 [facility] Comment on above: Performed By: #### C BC #### [facility] [address] [place] [address] Dr. Fabrizio Pascual Hemoglobin (Bld) [Mass/Vol] 10.9 g/dL Critically low 14.0-18.0 [facility] Comment on above: Performed By: #### C BC #### [facility] [address] [place] [address] Dr. Fabrizio Pascual IG # 0.06 10e3/ul Critically high 0.00-0.03 [facility] Comment on above: Performed By: #### C BC #### [facility] [address] [place] [address] Dr. Fabrizio Pascual IG % 0.6 % Critically high 0.0-0.5 [facility] Comment on above: Performed By: #### C BC #### [facility] [address] [place] [address] Dr. Fabrizio Pascual LYMPH # 0.6 103/ul Critically low 1.2-3.8 [facility] Comment on above: Performed By: #### C BC #### [facility] [address] [place] [address] Dr. Fabrizio Pascual Lymphocytes/100 WBC (Bld) 5.8 % Critically low 20.5-60.0 [facility] Comment on above: Performed By: #### C BC #### [facility] [address] [place] [address] Dr. Fabrizio Pascual MANUAL DIFF REQ NO Normal [facility] Comment on above: Performed By: #### C BC #### [facility] [address] [place] [address] Dr. Fabrizio Pascual MCH (RBC) [Entitic mass] 29.3 pg Normal 25.9-34.0 [facility] Comment on above: Performed By: #### C BC #### [facility] [address] [place] [address] Dr. Fabrizio Pascual MCHC (RBC) [Mass/Vol] 33.4 g/dL Normal 29.9-35.2 [facility] Comment on above: Performed By: #### C BC #### [facility] [address] [place] [address] Dr. Fabrizio Pascual MCV (RBC) [Entitic vol] 87.6 fL Normal 80.0-94.0 [facility] Comment on above: Performed By: #### C BC #### [facility] [address] [place] [address] Dr. Fabrizio Pascual MONO # 1.4 103/ul Critically high 0.3-0.8 [facility] Comment on above: Performed By: #### C BC #### [facility] [address] [place] [address] Dr. Fabrizio Pascual Monocytes/100 WBC (Bld) 13.4 % Critically high 1.7-12.0 [facility] Comment on above: Performed By: #### C BC #### [facility] [address] [place] [address] Dr. Fabrizio Pascual NEUT # 8.4 103/ul Critically high 1.4-6.5 [facility] Comment on above: Performed By: #### C BC #### [facility] [address] [address] [address] Fabrizio Pascual Neutrophils/100 WBC (Bld) 79.0 % Critically high 43.0-75.0 [facility] Comment on above: Performed By: #### C BC #### [facility] [address] [address] [address] Fabrizio Pascual Platelet mean volume (Bld) [Entitic vol] 9.1 fL Critically low 9.5-13.5 [facility] Comment on above: Performed By: #### C BC #### [facility] [address] [place] [address] Dr. Fabrizio Pascual PLT 347 103/ul Normal 150-450 [facility] Comment on above: Performed By: #### C BC #### [facility] [address] [place] [address] Dr. Fabrizio Pascual RBC 3.72 106/ul Critically low 4.70-6.10 [facility] Comment on above: Performed By: #### C BC #### [facility] [address] [address] [address] Fabrizio Pascual WBC 10.7 103/ul Normal 4.0-11.0 [facility] Comment on above: Performed By: #### C BC #### [facility] [address] [place] [address] Dr. Fabrizio Pascual Covid-19 PCR ([facility])on SARS-CoV-2 (COVID-19) RNA HOWIE+probe Ql (Unsp spec) Not detected Normal NOT DETECTED [facility] Comment on above: Result Comment: When diagnostic testing is negative, the possibility of a false negative should be considered in the context of a patient's recent exposures and the presence of clinical signs and symptoms consistent with SARS-CoV-2. This test is not yet approved or cleared by the [place] FDA. When there are no FDA-approved or cleared tests available, and other criteria are met, FDA can make tests available under an emergency access mechanism called an Emergency Use Authorization (EUA). The EUA for this test is supported by the [place] of Health and Human Service's declaration that circumstances exist to justify the emergency use of in vitro diagnostics for the detection and/or diagnosis of the virus that causes COVID-19. This EUA will remain in effect for the duration of the COVID-19 declaration justifying emergency of IVDs, unless it is terminated or revoked by the FDA (after which the test may no longer be used). Performed By: #### C VDTBH #### [facility] [address] [place] [address] Dr. Fabrizio Pascual INFLUENZA A AND B AGon 04-19 INFLUANEGH SEE BELOW Normal [facility] Comment on above: Result Comment: Nega tive for Flu A protein angiten. Infection due to Flu A cannot be ruled out. Flu A angiten in the sample may be below the detection limit of the test. Performed By: #### U YADIRA, BMP, TSH #### [facility] [address] [place] [address] Dr. Fabrizio Pascual INFLUBNEG SEE BELOW Normal [facility] Comment on above: Result Comment: Nega tive for Flu B protein antigen. Infection due to Flu B cannot be ruled out. Flu B antigen in the sample may be below the detection limit of the test. Performed By: #### U YADIRA, BMP, TSH #### [facility] [address] [place] [address] Dr. Fbarizio Pascual INFLUENZA A AG Negative Normal NEGATIVE SEE COMMENT [facility] Comment on above: Performed By: #### U YADIRA, BMP, TSH #### [facility] [address] [place] [address] Dr. Fabrizio Pascual INFLUENZA B AG Negative Normal NEGATIVE SEE COMMENT [facility] Comment on above: Performed By: #### U YADIRA, BMP, TSH #### [facility] [address] [place] [address] Dr. Fabrizio Pascual INTERNAL CONTROLS Within Normal Limits Normal Wi thin Normal Limits [facility] Comment on above: Performed By: #### U YADIRA, BMP, TSH #### [facility] [address] [place] [address] Dr. Fabrizio Pascual PROF CHEM 8 (BAS METB)on Anion gap [Moles/Vol] 10.8 mmol/L Normal [facility] Comment on above: Performed By: #### B MEDICAL ASSISTANT FLOAT, BMP, HSTROPN #### [facility] [address] [place] [address] Dr. Fabrizio Pascual Calcium [Mass/Vol] 8.8 mg/dL Normal 8.5-10.1 [facility] Comment on above: Performed By: #### B MEDICAL ASSISTANT FLOAT, BMP, HSTROPN #### [facility] [address] [place] [address] Dr. Fabrizio Pascual Chloride [Moles/Vol] 94 mmol/L Critically low 98-107 [facility] Comment on above: Performed By: #### B MEDICAL ASSISTANT FLOAT, BMP, HSTROPN #### [facility] [address] [place] [address] Dr. Fabrizio Pascual CO2 [Moles/Vol] 27.7 mmol/L Normal 21.0-32.0 [facility] Comment on above: Performed By: #### B MEDICAL ASSISTANT FLOAT, BMP, HSTROPN #### [facility] [address] [place] [address] Dr. Fabrizio Pascual Creatinine [Mass/Vol] 1.09 mg/dL Normal 0.70-1.30 [facility] Comment on above: Performed By: #### B MEDICAL ASSISTANT FLOAT, BMP, HSTROPN #### [facility] [address] [place] [address] Dr. Fabrizio Pascual EGFR-AF [place] >60 Normal >=60 [facility] Comment on above: Performed By: #### B MEDICAL ASSISTANT FLOAT, BMP, HSTROPN #### [facility] [address] [place] [address] Dr. Fabrizio Pascual EGFR-NON AF [place] >60 Normal >=60 [facility] Comment on above: Performed By: #### B MEDICAL ASSISTANT FLOAT, BMP, HSTROPN #### [facility] [address] [place] [address] Dr. Fabrizio Pascual Glucose [Mass/Vol] 103 mg/dL Normal 74-106 [facility] Comment on above: Performed By: #### B MEDICAL ASSISTANT FLOAT, BMP, HSTROPN #### [facility] [address] [address] [address] Fabrizio Pascual Potassium [Moles/Vol] 3.5 mmol/L Normal 3.5-5.1 [facility] Comment on above: Performed By: #### B MEDICAL ASSISTANT FLOAT, BMP, HSTROPN #### [facility] [address] [address] [address] Fabrizio Pascual Sodium [Moles/Vol] 129 mmol/L Critically low 136-145 [facility] Comment on above: Performed By: #### B MEDICAL ASSISTANT FLOAT, BMP, HSTROPN #### [facility] [address] [address] [address] Fabrizio Pascual Urea nitrogen [Mass/Vol] 15.0 mg/dL Normal 7.0-18.0 [facility] Comment on above: Performed By: #### B MEDICAL ASSISTANT FLOAT, BMP, HSTROPN #### [facility] [address] [place] [address] Dr. Fabrizio Pascual Urea nitrogen/Creatinin e [Mass ratio] 13.8 mg/mg Normal [facility] Comment on above: Performed By: #### B MEDICAL ASSISTANT FLOAT, BMP, HSTROPN #### [facility] [address] [address] [address] Fabrizio Pascual TROPONIN, HIGH SENSITIVITYon 04-19-2022 HSTROP 8.5 pg/mL Normal 4.0-76.1 [facility] Comment on above: Result Comment: CUT- OFF POINTS HAVE BEEN ESTABLISHED BASED ON THE FOURTH UNIVERSAL DEFINITIONS OF MYOCARDIAL INFARCTION. THE UPPER REFERENCE LIMIT (URL) OF TROPONIN, DEFINED THE 99TH PERCENTILE OF cTnI DISTRIBUTION IN A REFERENCE POPULATION, HAS BEEN CONFIRMED THE DECISION THRESHOLD FOR PR DIAGNOSIS. Performed By: #### B MEDICAL ASSISTANT FLOAT, BMP, HSTROPN #### [facility] [address] [place] [address] Dr. Fabrizio Pascual XR CHEST 1 Von 04-19-2022 XR CHEST 1 V EXAM: XR CHEST 1 V HISTORY: COUGH COMPARISON: 12/13/2021. 11/15/2021. TECHNIQUE: Single AP portable upright view of the chest. FINDINGS: At baseline there are severe chronic scarlike changes, scattered areas of cavitation, bronchiectasis and volume loss. Extensive calcified mediastinal and hilar nodes consistent with provided history of sarcoidosis. Slight diffuse pleural thickening. However compared to priors there is new right upper lobe groundglass and consolidative opacity consistent with superimposed pneumonia and/or collapse. Short-term follow-up. Remaining lungs similar to prior. No drainable effusions. Stable cardiomegaly. No acute bony process. IMPRESSION: Acute superimposed airspace opacity right upper lobe suggestive of pneumonia. Follow-up. Remainder of the chest similar to prior. Electronically authenticated by: JAYDEN VALENTINE Date: 2022-04-19 17:36 Normal [facility] MRI BRAIN WO W CONon 022 MRI BRAIN WO W CON EXAMINATION: MRI BRA IN WO W CON HISTORY: Syndrome of inappropriate vasopressin secretion , acoustic neuroma COMPARISON: MRI internal auditory canals 11/11/2016 TECHNIQUE: A variety of imaging planes and parameters were utilized for visualization of suspected pathology. Images were performed without and with ml Dotarem contrast. FINDINGS: CEREBRUM: Numerous, prominent T2 hyperintensities within the periventricular and subcortical deep white matter bilaterally. No edema, hemorrhage, mass, acute infarction, or inappropriate atrophy. CEREBELLUM: No edema, hemorrhage, mass, acute infarction, or inappropriate atrophy. BRAINSTEM: No edema, hemorrhage, mass, acute infarction, or inappropriate atrophy. CSF SPACES: Ventricles, cisterns, and sulci are appropriate for age. No hydrocephalus, subarachnoid hemorrhage, or mass. SKULL: No mass or other significant visible lesion. SINUSES: Paranasal sinuses are clear. ORBITS: Limited views are unremarkable. IACS: 5 x 3 x 3 mm enhancing soft tissue on left, similar to prior study, favoring an acoustic neuroma. INNER EARS: Negative. No abnormal signal intensity. MIDDLE EARS: Negative. No fluid or abnormal soft tissue. MASTOIDS: Mild mucosal thickening within a few mastoid air cells bilaterally. BRAINSTEM: Negative. No edema, mass, or inappropriate atrophy within the field of view. CSF SPACES: Negative. No visible mass. IMPRESSION: 1. Stable appearance of a small enhancing mass in opening of left internal auditory canal consistent with an acoustic neuroma. 2. Prominent T2 hyperintensities within the subcortical and periventricular deep white matter; age advanced chronic small vessel ischemic changes versus demyelinating process. Prior study did not contain FLAIR sequence to evaluate this finding. Electronically authenticated by: CORINNE OCHOA Date: 2021-12-14 06:55 Normal [facility] CT CHEST WO CONon 12-13-2021 CT CHEST WO CON EXAMINATION: CT CHES T WO CON HISTORY: Syndrome of inappropriate vasopressin secretion ; pulmonary sarcoidosis COMPARISON: XR chest 11/15/2021 TECHNIQUE: Axial, Coronal, and Sagittal images were created without the administration of IV contrast material. Dose reduction techniques were achieved by using automated exposure control and/or adjustment of mA and/or kV according to patient size and/or use of iterative reconstruction technique. FINDINGS: LUNGS: Marked fibrotic changes bilaterally along with bronchiectasis and a few large cavitary lesions connected to bronchi, largest is within left upper lobe, 6.4 x 2.9 x 3.0 cm. PLEURA: Pleural thickening surrounding the lungs bilaterally; loculated fluid is felt less likely. Scattered calcifications within the pleural thickening without development of calcified plaques. VASCULATURE: No abnormality. RANDI: Innumerable small and large calcified lymph nodes. MEDIASTINUM: Innumerable small and large calcified lymph nodes. CARDIAC: No enlargement or pericardial thickening. AORTA: No aneurysm or dissection. CHEST WALL: No mass or axillary adenopathy. BONES: No bone lesion or fracture. LIMITED ABDOMEN: No suspicious findings. Limited images of the upper abdomen. OTHER: Negative. IMPRESSION: 1. Findings compatible with advanced sarcoidosis. No prior studies for comparison. 2. No convincing acute infiltrates. Electronically authenticated by: CORINNE OCHOA Date: 2021-12-13 18:10 Normal [facility] OSMOLALITYon 12-02-2021 Osmolality [Osmolality] 275 mosm/kg Critically low 280-301 [facility] Comment on above: Performed By: #### O SMO #### [facility] [address] [address] [address] Fabrizio Pascual CORTISOLon 12-01-2021 Cortisol 1.2 ug/dL Normal [facility] Comment on above: Result Comment: Delio isol AM 6.2 - 19.4 Cortisol PM 2.3 - 11.9 Performed By: #### U YADIRA, BMP, TSH #### [facility] [address] [address] [address] Fabrizio Pascual OSMOLALITY URINEon Osmolality, Urine 236 mOsmol/kg Normal [facility] Comment on above: Result Comment: 24 h r : 300 - 900 Random: 50 - 1400 After 12hr fluid restriction: >850 Performed By: #### U YADIRA, BMP, TSH #### [facility] [address] [address] [address] Fabrizio Pascual PROF CHEM 8 (BAS METB)on Anion gap [Moles/Vol] 10.1 mmol/L Normal [facility] Comment on above: Performed By: #### U YADIRA, BMP, TSH #### [facility] [address] [address] [address] Fabrizio Pascual Calcium [Mass/Vol] 8.8 mg/dL Normal 8.5-10.1 [facility] Comment on above: Performed By: #### U YADIRA, BMP, TSH #### [facility] [address] [place] [address] Dr. Fabrizio Pascual Chloride [Moles/Vol] 97 mmol/L Critically low 98-107 [facility] Comment on above: Performed By: #### U YADIRA, BMP, TSH #### [facility] [address] [place] [address] Dr. Fabrizio Pascual CO2 [Moles/Vol] 28.9 mmol/L Normal 21.0-32.0 [facility] Comment on above: Performed By: #### U YADIRA, BMP, TSH #### [facility] [address] [place] [address] Dr. Fabrizio Pascual Creatinine [Mass/Vol] 1.08 mg/dL Normal 0.70-1.30 [facility] Comment on above: Performed By: #### U YADIAR, BMP, TSH #### [facility] [address] [place] [address] Dr. Fabrizio Pascual EGFR-AF [place] >60 Normal >=60 [facility] Comment on above: Performed By: #### U YADIRA, BMP, TSH #### [facility] [address] [place] [address] Dr. Fabrizio Pascual EGFR-NON AF [place] >60 Normal >=60 [facility] Comment on above: Performed By: #### U YADIRA, BMP, TSH #### [facility] [address] [place] [address] Dr. Fabrizio Pascual Glucose [Mass/Vol] 106 mg/dL Normal 74-106 [facility] Comment on above: Performed By: #### U YADIRA, BMP, TSH #### [facility] [address] [address] [address] Fabrizio Pascual Potassium [Moles/Vol] 4.0 mmol/L Normal 3.5-5.1 [facility] Comment on above: Performed By: #### U YADIRA, BMP, TSH #### [facility] [address] [place] [address] Dr. Fabrizio Pascual Sodium [Moles/Vol] 132 mmol/L Critically low 136-145 [facility] Comment on above: Performed By: #### U YADIRA, BMP, TSH #### [facility] [address] [place] [address] Dr. Fabrizio Pascual Urea nitrogen [Mass/Vol] 18.0 mg/dL Normal 7.0-18.0 [facility] Comment on above: Performed By: #### U YADIRA, BMP, TSH #### [facility] [address] [place] [address] Dr. Fabrizio Pascual Urea nitrogen/Creatinin e [Mass ratio] 16.7 mg/mg Normal [facility] Comment on above: Performed By: #### U YADIRA, BMP, TSH #### [facility] [address] [place] [address] Dr. Fabrizio Pascual SODIUM RANDOM URINEon 2021 Sodium (U) [Moles/Vol] 82 mmol/L Normal 30-90 [facility] Comment on above: Performed By: #### B MEDICAL ASSISTANT FLOAT, BMP, HSTROPN #### [facility] [address] [place] [address] Dr. Fabrizio Pascual TSHon 11-30-2021 TSH 1.576 uIU/mL Normal 0.358-3.740 [facility] Comment on above: Performed By: #### U YADIRA, BMP, TSH #### [facility] [address] [place] [address] Dr. Fabrizio Pascual URIC ACID SERUMon 07-19-2022 Urate [Mass/Vol] 7.2 mg/dL Normal 3.5-7.2 [facility] Comment on above: Performed By: #### U YADIRA, BMP, TSH #### [facility] [address] [address] [address] Fabrizio Pascual PROF CHEM 8 (BAS METB)on Anion gap [Moles/Vol] 14.8 mmol/L Normal [facility] Comment on above: Performed By: #### U YADIRA, BMP, TSH #### [facility] [address] [address] [address] Fabrizio Pascual Calcium [Mass/Vol] 9.1 mg/dL Normal 8.5-10.1 [facility] Comment on above: Performed By: #### U YADIRA, BMP, TSH #### [facility] [address] [address] [address] Fabrizio Pascual Chloride [Moles/Vol] 91 mmol/L Critically low 98-107 [facility] Comment on above: Performed By: #### U YADIRA, BMP, TSH #### [facility] [address] [address] [address] Fabrizio Pascual CO2 [Moles/Vol] 22.2 mmol/L Normal 21.0-32.0 [facility] Comment on above: Performed By: #### U YADIRA, BMP, TSH #### [facility] [address] [address] [address] Fabrizio Pascual Creatinine [Mass/Vol] 0.97 mg/dL Normal 0.70-1.30 [facility] Comment on above: Performed By: #### U YADIRA, BMP, TSH #### [facility] [address] [address] [address] Fabrizio Pascual EGFR-AF [place] >60 Normal >=60 [facility] Comment on above: Performed By: #### U YADIRA, BMP, TSH #### [facility] [address] [address] [address] Fabrizio Pascual EGFR-NON AF [place] >60 Normal >=60 [facility] Comment on above: Performed By: #### U YADIRA, BMP, TSH #### [facility] [address] [address] [address] Fabrizio Pascual Glucose [Mass/Vol] 144 mg/dL Critically high 74-106 [facility] Comment on above: Performed By: #### U YADIRA, BMP, TSH #### [facility] [address] [address] [address] Fabrizio Pascual Potassium [Moles/Vol] 4.0 mmol/L Normal 3.5-5.1 [facility] Comment on above: Performed By: #### U YADIRA, BMP, TSH #### [facility] [address] [address] [address] Fabrizio Pascual Sodium [Moles/Vol] 124 mmol/L Critically low 136-145 [facility] Comment on above: Performed By: #### U YADIRA, BMP, TSH #### [facility] [address] [place] [address] Dr. Fabrizio Pascual Urea nitrogen [Mass/Vol] 18.0 mg/dL Normal 7.0-18.0 [facility] Comment on above: Performed By: #### U YADIRA, BMP, TSH #### [facility] [address] [place] [address] Dr. Fabrizio Pascual Urea nitrogen/Creatinin e [Mass ratio] 18.6 mg/mg Normal [facility] Comment on above: Performed By: #### U YADIRA, BMP, TSH #### [facility] [address] [place] [address] Dr. Fabrizio Pascual BNPon 11-15-2021 Natriuretic peptide B (Bld) [Mass/Vol] 1143.0 pg/mL Critically high <=900.0 [facility] Comment on above: Performed By: #### U YADIRA, BMP, TSH #### [facility] [address] [place] [address] Dr. Fabrizio Pascual CBC W MANUAL DIFFon 11-16-19 ATYPICAL LYMPH # Normal [facility] Comment on above: Performed By: #### U YADIRA, BMP, TSH #### [facility] [address] [place] [address] Dr. Fabrizio Pascual ATYPICAL LYMPH % Normal [facility] Comment on above: Performed By: #### U YADIRA, BMP, TSH #### [facility] [address] [address] [address] Fabrizio Pascual BAND # 0.0 103/ul Normal 0.0-0.3 [facility] Comment on above: Performed By: #### U YADIRA, BMP, TSH #### [facility] [address] [address] [address] Fabrizio Pascual BAND % 0 % Normal 0-5 [facility] Comment on above: Performed By: #### U YADIRA, BMP, TSH #### [facility] [address] [address] [address] Fabrizio Pascual BASOM # 0.00 103/ul Normal 0.00-0.10 [facility] Comment on above: Performed By: #### U YADIRA, BMP, TSH #### [facility] [address] [place] [address] Dr. Fabrizio Pascual BASOM % 0.0 % Critically low 0.2-2.0 [facility] Comment on above: Performed By: #### U YADIRA, BMP, TSH #### [facility] [address] [address] [address] Fabrizio Pascual BLAST # Normal [facility] Comment on above: Performed By: #### U YADIRA, BMP, TSH #### [facility] [address] [place] [address] Dr. Fabrizio Pascual BLAST % Normal [facility] Comment on above: Performed By: #### U YADIRA, BMP, TSH #### [facility] [address] [place] [address] Dr. Fabrizio Pascual CORRECTED WBC Normal 4.0-11.0 [facility] Comment on above: Performed By: #### U YADIRA, BMP, TSH #### [facility] [address] [place] [address] Dr. Fabrizoi Pascual EOS # 0.24 103/ul Normal 0.00-0.70 [facility] Comment on above: Performed By: #### U YADIRA, BMP, TSH #### [facility] [address] [place] [address] Dr. Fabrizio Pascual EOS% 2.0 % Normal 0.9-7.0 [facility] Comment on above: Performed By: #### U YADIRA, BMP, TSH #### [facility] [address] [address] [address] Fabrizio Pascual HCT 37.1 % Critically low 42.0-54.0 [facility] Comment on above: Performed By: #### U YADIRA, BMP, TSH #### [facility] [address] [address] [address] Fabrizio Pascual HGB 12.3 g/dl Critically low 14.0-18.0 [facility] Comment on above: Performed By: #### U YADIRA, BMP, TSH #### [facility] [address] [address] [address] Fabrizio Pascual LYMPHM # 0.60 103/ul Critically low 1.20-3.80 [facility] Comment on above: Performed By: #### U YADIRA, BMP, TSH #### [facility] [address] [address] [address] Fabrizio Pascual LYMPHM% 5.0 % Critically low 20.5-60.0 [facility] Comment on above: Performed By: #### U YADIRA, BMP, TSH #### [facility] [address] [address] [address] Fabrizio Pascual MCH 29.3 pg Normal 25.9-34.0 [facility] Comment on above: Performed By: #### U YDAIRA, BMP, TSH #### [facility] [address] [address] [address] Fabrizio Pascual MCHC 33.2 g/dl Normal 29.9-35.2 [facility] Comment on above: Performed By: #### U YADIRA, BMP, TSH #### [facility] [address] [address] [address] Fabrizio Pascual MCV 88.3 fL Normal 80.0-94.0 [facility] Comment on above: Performed By: #### U YADIRA, BMP, TSH #### [facility] [address] [address] [address] Fabrizio Pascual METAMYELOCYTE # Normal [facility] Comment on above: Performed By: #### U YADIRA, BMP, TSH #### [facility] [address] [place] [address] Dr. Fabrizio Pascual METAMYELOCYTE % Normal [facility] Comment on above: Performed By: #### U YADIRA, BMP, TSH #### [facility] [address] [place] [address] Dr. Fabrizio Pascual MONOM# 0.60 103/ul Normal 0.30-0.80 [facility] Comment on above: Performed By: #### U YADIRA, BMP, TSH #### [facility] [address] [place] [address] Dr. Fabrizio Pascual MONOM% 5.0 % Normal 1.7-12.0 [facility] Comment on above: Performed By: #### U YADIRA, BMP, TSH #### [facility] [address] [place] [address] Dr. Fabrizio Pascual MPV 9.2 fL Critically low 9.5-13.5 [facility] Comment on above: Performed By: #### U YADIRA, BMP, TSH #### [facility] [address] [place] [address] Dr. Fabrizio Pascual MYELOCYTE # Normal [facility] Comment on above: Performed By: #### U YADIRA, BMP, TSH #### [facility] [address] [place] [address] Dr. Fabrizio Pascual MYELOCYTE % Normal [facility] Comment on above: Performed By: #### U YADIRA, BMP, TSH #### [facility] [address] [place] [address] Dr. Fabrizio Pascual NRBC Normal [facility] Comment on above: Performed By: #### U YADIRA, BMP, TSH #### [facility] [address] [place] [address] Dr. Fabrizio Pascual PLT 227 103/ul Normal 150-450 [facility] Comment on above: Performed By: #### U YADIRA, BMP, TSH #### [facility] [address] [address] [address] Fabrizio Pascual RBC 4.20 106/ul Critically low 4.70-6.10 [facility] Comment on above: Performed By: #### U YADIRA, BMP, TSH #### [facility] [address] [place] [address] Dr. Fabrizio Pascual RDW 14.0 % Normal 11.0-15.0 [facility] Comment on above: Performed By: #### U YADIRA, BMP, TSH #### [facility] [address] [place] [address] Dr. Fabrizio Pascual SEG # 10.65 103/ul Critically high 1.40-6.50 [facility] Comment on above: Performed By: #### U YADIRA, BMP, TSH #### [facility] [address] [place] [address] Dr. Fabrizio Pascual SEG % 88.0 % Critically high 43.0-75.0 [facility] Comment on above: Performed By: #### U YADIRA, BMP, TSH #### [facility] [address] [place] [address] Dr. Fabrizio Pascual WBC 12.1 103/ul Critically high 4.0-11.0 [facility] Comment on above: Performed By: #### U YADIRA, BMP, TSH #### [facility] [address] [place] [address] Dr. Fabrizio Pascual CULTURE BLOODon 11-15-2021 Microscopic examination of blood, culture Culture Observations: NO GROWTH AT 5 DAYS. Normal [facility] Comment on above: Performed By: #### U YADIRA, BMP, TSH #### [facility] [address] [place] [address] Dr. Fabrizio Pascual Microscopic examination of blood, culture Culture Observations: NO GROWTH AT 5 DAYS. Normal [facility] Comment on above: Performed By: #### U YADIRA, BMP, TSH #### [facility] [address] [place] [address] Dr. Fabrizio Pascual [facility]on SARS-CoV-2 (COVID-19) RNA HOWIE+probe Ql (Unsp spec) Not detected Normal NOT DETECTED [facility] Comment on above: Result Comment: When diagnostic testing is negative, the possibility of a false negative should be considered in the context of a patient's recent exposures and the presence of clinical signs and symptoms consistent with SARS-CoV-2. This test is not yet approved or cleared by the [place] FDA. When there are no FDA-approved or cleared tests available, and other criteria are met, FDA can make tests available under an emergency access mechanism called an Emergency Use Authorization (EUA). The EUA for this test is supported by the [employer] of Health and Human Service's declaration that circumstances exist to justify the emergency use of in vitro diagnostics for the detection and/or diagnosis of the virus that causes COVID-19. This EUA will remain in effect for the duration of the COVID-19 declaration justifying emergency of IVDs, unless it is terminated or revoked by the FDA (after which the test may no longer be used). Performed By: #### U YADIRA, BMP, TSH #### [facility] [address] [place] [address] Dr. Fabrizio Pascual LACTATE/LACTIC ACIDon 2021 Lactate [Moles/Vol] 1.2 mmol/L Normal 0.4-1.9 [facility] Comment on above: Performed By: #### B MEDICAL ASSISTANT FLOAT, BMP, HSTROPN #### [facility] [address] [place] [address] Dr. Fabrizio Pascual PROF CHEM 8 (BAS METB)on Anion gap [Moles/Vol] 13.7 mmol/L Normal [facility] Comment on above: Performed By: #### U YADIRA, BMP, TSH #### [facility] [address] [address] [address] Fabrizio Pascual Calcium [Mass/Vol] 8.8 mg/dL Normal 8.5-10.1 [facility] Comment on above: Performed By: #### U YADIRA, BMP, TSH #### [facility] [address] [place] [address] Dr. Fabrizio Pascual Chloride [Moles/Vol] 91 mmol/L Critically low 98-107 [facility] Comment on above: Performed By: #### U YADIRA, BMP, TSH #### [facility] [address] [address] [address] Fabrizio Pascual CO2 [Moles/Vol] 25.0 mmol/L Normal 21.0-32.0 [facility] Comment on above: Performed By: #### U YADIRA, BMP, TSH #### [facility] [address] [address] [address] Fabrizio Pascual Creatinine [Mass/Vol] 0.97 mg/dL Normal 0.70-1.30 [facility] Comment on above: Performed By: #### U YADIRA, BMP, TSH #### [facility] [address] [address] [address] Fabrizio Pascual EGFR-AF [place] >60 Normal >=60 [facility] Comment on above: Performed By: #### U YADIRA, BMP, TSH #### [facility] [address] [address] [address] Fabrizio Pascual EGFR-NON AF [place] >60 Normal >=60 [facility] Comment on above: Performed By: #### U YADIRA, BMP, TSH #### [facility] [address] [address] [address] Fabrizio Pascual Glucose [Mass/Vol] 85 mg/dL Normal 74-106 [facility] Comment on above: Performed By: #### U YADIRA, BMP, TSH #### [facility] [address] [address] [address] Fabrizio Pascual Potassium [Moles/Vol] 3.7 mmol/L Normal 3.5-5.1 [facility] Comment on above: Performed By: #### U YADIRA, BMP, TSH #### [facility] [address] [address] [address] Fabrizio Pascual Sodium [Moles/Vol] 126 mmol/L Critically low 136-145 [facility] Comment on above: Performed By: #### U YADIRA, BMP, TSH #### [facility] [address] [address] [address] Fabrizio Pascual Urea nitrogen [Mass/Vol] 12.0 mg/dL Normal 7.0-18.0 [facility] Comment on above: Performed By: #### U YADIRA, BMP, TSH #### [facility] [address] [address] [address] Fabrizio Pascual Urea nitrogen/Creatinin e [Mass ratio] 12.4 mg/mg Normal [facility] Comment on above: Performed By: #### U YADIRA, BMP, TSH #### [facility] [address] [address] [address] Fabrizio Pascual TROPONIN, HIGH SENSITIVITYon 11-15-2021 HSTROP 8.6 pg/mL Normal 4.0-76.1 [facility] Comment on above: Result Comment: CUT- OFF POINTS HAVE BEEN ESTABLISHED BASED ON THE FOURTH UNIVERSAL DEFINITIONS OF MYOCARDIAL INFARCTION. THE UPPER REFERENCE LIMIT (URL) OF TROPONIN, DEFINED THE 99TH PERCENTILE OF cTnI DISTRIBUTION IN A REFERENCE POPULATION, HAS BEEN CONFIRMED THE DECISION THRESHOLD FOR PR DIAGNOSIS. Performed By: #### U YADIRA, BMP, TSH #### [facility] [address] [address] [address] Fabrizio Pascual XR CHEST 1 Von 11-15-2021 XR CHEST 1 V EXAM: XR CHEST 1 V. HISTORY: SHORTNESS OF BREATH. COMPARISON: 02/09/2019. TECHNIQUE: Single projection. FINDINGS: Extensive pleural thickening identified bilaterally. Extensive calcified lymphadenopathy in the mediastinal and hilar regions. There is parenchymal scarring emanating from the right randi into the mid lungs. Generalized interstitial fibrosis unchanged. No pulmonary cavity or pneumothorax. IMPRESSION: 1. Extensive mediastinal pleural and parenchymal changes bilaterally having a chronic and unchanged appearance since 02/09/2019 and compatible with mediastinal and pulmonary parenchymal granulomatous disease such as sarcoidosis. 2. No new findings. Electronically authenticated by: DELCAN TRIPLETT Date: 2021-11-15 19:25 Normal [facility] 10-26-2021 L ---- Specimen: [id number] Received: 10/26/21 Status: KRIS Pierson Num: [id number] Spec Type: Surgical Subm Dr: Gregg Hilliard Jr, DO Tissues: A Esophagus Biopsy (DISTAL ESOPHAGUS) B Colon - Polyp (CECAL POLYP) C Colon - Polyp (DESCENDING POLYP) Procedures: HE Stain/6, Gross/Micro L4/3 Patient Age/Sex Location Account Attending Physician Mary Small 66/M [id number] Gregg Hilliard Jr, DO SPEC NUM: [id number] RECD: 10/26/21 STATUS: KRIS GODDARDBrendon NUM: [id number] NIC: 10/26/21- [facility] DR: Gregg Hilliard Jr, DO ENTERED: 10/26/[address]: JEN TYPE: Surgical DEPT: S ORDERED: HE Stain/6, Gross/Micro L4/3 ORDERED: HE Stain/6, Gross/Micro L4/3 This Amended Report is issued to correct the following: Part A: No intestinal metaplasia is seen. Previously Reported as: Part A: No intestinal metaplasia is seen. Amended Report Information: Part A: Very focal intestinal metaplasia (only few glands) is seen on deeper level. No fungal microorganism is seen with GMS stain. No occult malignancy is seen with AE1/AE3 immunostain. Addendum Signed (signature on file) Kartik Bolton MD (Michelle) 10/28/21 1504 Pathological Diagnosis A. Esophagus, distal, biopsy: Squamocolumnar junction mucosa with ulceration, granulation tissue, fibrinopurulent exudate and reactive epithelial changes. No intestinal metaplasia is seen. No definite microorganism seen on H E sections. See Comment. B. Colon, cecum, polyp, polypectomy: Specimen: [id number] Received: 10/26/21123 Status: KRIS Goddardbrendon Num: [id number] Spec Type: Surgical Subm Dr: Gregg Hilliard Jr, DO Tissues: A Esophagus Biopsy (DISTAL ESOPHAGUS) B Colon - Polyp (CECAL POLYP) C Colon - Polyp (DESCENDING POLYP) Procedures: HE Stain/6, Gross/Micro L4/3 Patient: Mary Small [id number] (Continued) Specimen: [id number] Received: 10/26/21 (Continued) Pathological Diagnosis (Continued) Signed (signature on file) Kartik Bolton MD (Michelle) 10/27/21 1419 Specimen: [id number] Received: 10/26/21 Status: KRIS Pierson Num: [id number] Spec Type: Surgical Subm Dr: Gregg Hilliard Jr, DO Tissues: A Esophagus Biopsy (DISTAL ESOPHAGUS) B Colon - Polyp (CECAL POLYP) C Colon - Polyp (DESCENDING POLYP) Procedures: HE Stain/6, Gross/Micro L4/3 Patient: Mary Small [id number] (Continued) Specimen: [id number] Received: 10/26/21-123 (Continued) Pathological Diagnosis (Continued) Fragments of tubular adenoma. No high-grade dysplasia seen. C. Colon, descending, polyp, polypectomy: Fragments of inflammatory polyp with cautery effect. Comment: Part A: GMS (fungus) and AE1/AE3 immunostains were ordered, supplemental report will follow. Clinical Information Anemia, history of polyps Gross Description A. Received in formalin labeled with the patient's name, number and distal esophagus biopsy for esophagitis are 3 casanova-pink tissue fragments, 0.3 cm to 0.4 cm. Entirely submitted in one cassette labeled A1. Type of Fixative: 10% Neutral Buffered Formalin (SM/YJ) B. Received in formalin labeled with the patient's name, number and colon cecal colon polyp are multiple casanova-pink tissue fragments aggregating 0.9 x 0.9 x 0.3 cm. The resection margin is indeterminate. Entirely submitted in one cassette labeled B1. Type of Fixative: 10% Neutral Buffered Formalin (SM/YJ) C. Received in formalin labeled with the patient's name, number and descending colon polyp are multiple casanova-pink tissue fragments admixed with vegetable material, aggregating 0.9 x 0.7 x 0.4 cm. The resection margin is indeterminate. Entirely submitted in one cassette labeled C1. Type of Fixative: 10% Neutral Buffered Formalin (SM/YJ) Microscopic Description A. Two H E glass slides received. B. Two H E glass slides received. C. Two H E glass slide (more content not included)... Normal [place] [facility] [place] SARS-CoV-2 (COVID-19) RNA HOWIE+probe Ql (Unsp spec) Negative Normal Negative [place] Comment on above: Order Comment: Healt hcare Worker?: N Result Comment: Testing for SARS-CoV-2 by RT-PCR This test was developed and its performance characteristics determined by [employer] ([place]) and validated at the [place]. This test has not been FDA cleared or approved. This test has been authorized by FDA under an Emergency Use Authorization (EUA). This test has been validated in accordance with the FDA's Guidance Document (Policy for Diagnostics Testing in Laboratories Certified to Perform High Complexity Testing under CLIA prior to Emergency Use Authorization for Coronavirus Disease-2019 during the Public Health Emergency) issued on August 15, 2019. This test is only authorized for the duration of time the declaration that circumstances exist justifying the authorization of the emergency use of in vitro diagnostic tests for detection of SARS-CoV-2 virus and/or diagnosis of COVID-19 infection under section 564(b)(1) of the Act, 21 U.S.C. 360bbb-3(b)(1), unless the authorization is terminated or revoked sooner. PERFORMED BY: [place] [address] PATHOLOGIST [employer]EM[employer] BETHANY ALBRIGHT M.D. Performed By: #### C OVID 19 [facility] [place] #### [address] COVID-19 Positive/NegativeOr dered By: Gregg Hilliard on 10-22-2021 SARS-CoV-2 (COVID-19) N gene HOWIE+probe Ql (Resp) Negative Negative [place] Comment on above: Testing for SARS-CoV -2 by RT-PCR This test was developed and its performance characteristics determined by [employer] ([place] [employer]) and validated at the [place]. This test has not been FDA cleared or approved. This test has been authorized by FDA under an Emergency Use Authorization (EUA). This test has been validated in accordance with the FDA's Guidance Document (Policy for Diagnostics Testing in Laboratories Certified to Perform High Complexity Testing under CLIA prior to Emergency Use Authorization for Coronavirus Disease-2019 during the Public Health Emergency) issued on August 15, 2019. This test is only authorized for the duration of time the declaration that circumstances exist justifying the authorization of the emergency use of in vitro diagnostic tests for detection of SARS-CoV-2 virus and/or diagnosis of COVID-19 infection under section 564(b)(1) of the Act, 21 U.S.C. 360bbb-3(b)(1), unless the authorization is terminated or revoked sooner. Office Visit (Cardiology)on 04-29-2021 Follow-up visit Diagnoses/Problems Assessed Non-ischemic cardiomyopathy (425.4) (I42.8) Pulmonary sarcoidosis (135,517.8) (D86.0) Chronic obstructive pulmonary disease, unspecified COPD type (496) (J44.9) Diastolic dysfunction (429.9) (I51.89) Body mass index (BMI) of 23.0 to 23.9 in adult (V85.1) (Z68.23) Patient Instructions follow up in 1 year By signing my name below, I, Rigo Vizcaino LPNScribe, attest that this documentation has been prepared under the direction and in the presence of Dr. tSeven Galarza MD. All medical record entries made by the Scribe were at my direction and personally dictated by me. I have reviewed the chart and agree that the record accurately reflects my personal performance of the history, physical exam, discussion and plan. Please bring all medicines, vitamins, and herbal supplements with you when you come to the office. Prescriptions will not be filled unless you are compliant with your follow up appointments or have a follow up appointment scheduled as per instruction of your physician. Refills should be requested at the time of your visit. Chief Complaint MARY SMALL is being seen for a 6 month follow-up of. History of Present Illness Patient returns in follow-up of problems as noted. In the interim he is done relatively well. He denies any orthopnea or PND. He has some dyspnea with exertion but it is mild and tolerable and he notes that the addition of diuretic therapy at the last visit did improve his symptomatology somewhat. I pointed out to him that he has manifestations of pulmonary and cardiac sarcoidosis as the cause of his symptomatology and once again we asked about defibrillator implantation but he declines. Review of medical therapy appears to demonstrate that therapy is ideal and/or optimized and because of this I recommend no adjustments or changes in medical therapy and follow-up next year. Surgical History Problems History of Complete colonoscopy History of Knee arthroscopy Past Medical History Problems History of heartburn (V12.79) (Z87.898) History of shortness of breath (V13.89) (Z87.898) History of Lung trouble (786.00) (J98.4) History of No pertinent past surgical history Current Meds Medication NameInstruction Carvedilol 12.5 MG Oral TabletTAKE 1 TABLET BY MOUTH TWICE DAILY Entresto 24-26 MG Oral TabletTAKE 1 TABLET BY MOUTH TWICE DAILY Entresto 49-51 MG Oral TabletTAKE 1 TABLET BY MOUTH TWICE DAILY Finasteride 5 MG Oral TabletTAKE 1 TABLET BY MOUTH DAILY Ipratropium-Albuterol 0.5-2.5 (3) MG/3ML Inhalation SolutionINHALE 1 (ONE) vial via NEBULIZER TWICE DAILY - FOUR TIMES DAILY Multiple Vitamins Oral Tablet predniSONE 5 MG Oral TabletTAKE 1 TABLET BY MOUTH EVERY DAY Tamsulosin HCl - 0.4 MG Oral CapsuleTAKE 1 CAPSULE BY MOUTH TWICE DAILY Ventolin HFA 108 (90 Base) MCG/ACT Inhalation Aerosol SolutionINHALE 2 PUFFS BY MOUTH EVERY 4 HOURS NEEDED FOR COUGH / DYSPNEA Patient did not bring medication list or bottles. Updated verbally with patient Allergies Medication No Known Drug Allergies Recorded By: Jeanna Bay; 12/15/2016 1:26:35 PM Social History Problems Caffeine use (V49.89) (Z78.9) Drinks beer (V49.89) (Z78.9) Lives with family Never a smoker No illicit drug use Uses chewing tobacco Review of Systems Constitutional: not feeling tired. Eyes: no eyesight problems. ENT: no hearing loss and no nosebleeds. Cardiovascular: no intermittent leg claudication and as noted in HPI. Respiratory: no chronic cough and no shortness of breath. Gastrointestinal: no change in bowel habits and no blood in stools. Genitourinary: no urinary frequency and no hematuria. Skin: no skin rashes. Neurological: no seizures and no frequent falls. Psychiatric: no depression and not suicidal. All other systems have been reviewed and are negative for complaint. Vitals Vital Signs Recorded: [id number] 02:51PM Heart Rate77, L Radial Diergbpl328, LUE, Sitting Dokgvjvsn17, LUE, Sitting Height6 ft Ezjdix063 lb BMI Wcvztiwvfm27.87 kg/m2 BSA Calculated2.02 Tobacco Useb) No Fall Screeninga) No falls within the last year Physical Exam Constitutional: alert and in no acute distress. Eyes: no erythema, swelling or discharge from the eye . Neck: neck is supple, symmetric, trachea midline, no masses and no thyromegaly . Pulmonary: no increased work of breathing or signs of respiratory distress and lungs clear to auscultation. Cardiovascular: carotid pulses 2+ bilaterally with no bruit , JVP was normal, no thrills , regular rhythm, normal S1 and S2, no murmurs , pedal pulses 2+ bilaterally and no edema . Abdomen: abdomen non-tender, no masses and no hepatomegaly . Skin: skin warm and dry, normal skin turgor . Psychiatric judgment and insight is normal and oriented to person, place and time . Signatures Electronically signed by : Steven Galarza MD; Apr 29 2021 5:34PM EST (Author) Normal [place] Tobacco Screening.on 021 Fall risk assessment a) No falls within the last year -[facility] [email or web address] 250 DO Work Phone: Tobacco use status [facility] b) No -[facility] [employer] 250 DO Work Phone: MRI IAC WO/Won 12-21-2018 MRI IAC WO/W Patient Name: MARY SMALL STUDY: MRI IAC WO/W; 12/21/2018 2:15 pm INDICATION: CPA lesion. COMPARISON: None. ACCESSION NUMBER(S): [id number] ORDERING CLINICIAN: ERIN BAUTISTA TECHNIQUE: T2, FLAIR, DWI, gradient echo T2 and T1 weighted images of brain were acquired without intravenous contrast administration. Precontrast high-resolution T1 weighted and T2 weighted images were acquired through the region of internal auditory canals. Post contrast T1 weighted images of the whole brain, high-resolution T1 coronal images through the internal auditory canals and fat saturated T1 axial images through the internal auditory canals were acquired after administration of 17 mL MultiHance gadolinium based intravenous contrast. FINDINGS: CSF Spaces: The ventricles, sulci and basal cisterns are within normal limits. Parenchyma: There is no diffusion restriction abnormality to suggest acute infarct. Patchy T2 hyperintense signal in the white matter is nonspecific but likely secondary to chronic small vessel ischemic disease. There is no abnormal parenchymal enhancement. There is no mass effect or midline shift. IAC region: 3 x 3 mm nodular enhancing focus in the left cerebellopontine angle adjacent to the internal auditory canal (post-contrast axial image 15). This exerts minimal mass effect on the adjacent 7th and 8th cranial nerves. The brainstem is unremarkable. Minimal extension to the IAC. No other abnormal enhancement. Bilateral inner ear structures demonstrate expected signal and postcontrast appearance. Paranasal Sinuses and Mastoids: Trace mastoid effusions. Minimal paranasal sinus mucosal thickening. Partially visualized degenerative changes in the cervical spine with associated pannus at C1-2, mildly narrowing the craniocervical junction IMPRESSION: 1. 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 2. No acute parenchymal abnormality. Electronically signed by: PASHA DEGROOT MD, PHD Normal [facility] Vital Signs Date Time Vital Sign Value Performing Clinician Kathy quigley 10-13-2023 13:35-0400 Body height 182.9 cm Steven Galarza MD Work Phone: [facility] 10-13-2023 13:35-0400 Body mass index (BMI) [Ratio] 23.06 kg/m2 Steven Galarza MD Work Phone: [facility] 10-13-2023 13:35-0400 Body weight 77.11 kg Steven Galarza MD Work Phone: [facility] 10-13-2023 13:35-0400 Diastolic blood pressure 78 mm[Hg] Steven Galarza MD Work Phone: [facility] 10-13-2023 13:35-0400 Heart rate 72 /min Steven Galarza MD Work Phone: [facility] 10-13-2023 13:35-0400 Systolic blood pressure 138 mm[Hg] Steven Galarza MD Work Phone: [facility] 08-14-2023 15:21-0400 Blood Pressure Location [facility] 08-14-2023 15:21-0400 Diastolic blood pressure 74 mm[Hg] Clinton GOT[facility] 08-14-2023 15:21-0400 Heart rate 80 /min Clinton GOTTI [facility] 08-14-2023 15:21-0400 Respiratory rate 16 /min Clinton GOT[facility] 08-14-2023 15:21-0400 Systolic blood pressure 132 mm[Hg] Clinton GOTTI [facility] 03-01-2023 14:00-0400 Body height 182.88 cm Adam Ball Other [facility] [employer] Other 03-01-2023 14:00-0400 Body mass index (BMI) [Ratio] 23.22 kg/m2 Adam Ball Other [employer] Other 03-01-2023 14:00-0400 Body weight 77.66 kg Adam Ball Other [employer] Other 03-01-2023 14:00-0400 Diastolic blood pressure 80 mm[Hg] Adam Ball Other [employer] Other 03-01-2023 14:00-0400 Respiratory rate 20 /min Adam Ball Other [employer] Other 03-01-2023 14:00-0400 Systolic blood pressure 145 mm[Hg] Adam Ball Other [employer] Other 11-28-2022 13:10-0400 Blood Pressure Location [facility] 11-28-2022 13:10-0400 Diastolic blood pressure 80 mm[Hg] Clinton [facility] 11-28-2022 13:10-0400 Heart rate 68 /min Clinton GOTTI [facility] 11-28-2022 13:10-0400 Respiratory rate 16 /min Clinton GOTTI [facility] 11-28-2022 13:10-0400 Systolic blood pressure 130 mm[Hg] Clinton [facility] 09-01-2022 12:30-0400 Body height 182.88 cm Adam Ball Other [facility] [employer] Other 09-01-2022 12:30-0400 Body mass index (BMI) [Ratio] 22.97 kg/m2 Adam Ball Other [employer] Other 09-01-2022 12:30-0400 Body weight 76.84 kg Adam Ball Other [employer] Other 09-01-2022 12:30-0400 Diastolic blood pressure 87 mm[Hg] Adam Ball Other [employer] Other 09-01-2022 12:30-0400 Respiratory rate 20 /min Adam Ball Other [employer] Other 09-01-2022 12:30-0400 Systolic blood pressure 147 mm[Hg] Adam Ball Other [employer] Other 02-14-2022 12:08-0400 Blood Pressure Location [facility] 02-14-2022 12:08-0400 Diastolic blood pressure 89 mm[Hg] Clinton GOTTI [facility] 02-14-2022 12:08-0400 Heart rate 80 /min Clintonsneha GOTTI [facility] 02-14-2022 12:08-0400 Respiratory rate 16 /min Clinton GOTTI [facility] 02-14-2022 12:08-0400 Systolic blood pressure 139 mm[Hg] Clinton [facility] 10-26-2021 11:23-0400 Diastolic blood pressure 95 mm[Hg] DO Adam Ball Work Phone: [place] 10-26-2021 11:23-0400 Heart rate 62 /min DO Adam Ball Work Phone: [place] 10-26-2021 11:23-0400 Respiratory rate 20 /min DO Adam Ball Work Phone: [place] 10-26-2021 11:23-0400 SaO2% (BldA) [Mass fraction] 94 % DO Adam Ball Work Phone: [place] 10-26-2021 11:23-0400 Systolic blood pressure 134 mm[Hg] DO Adam Ball Work Phone: [place] 10-26-2021 09:24-0400 Body height 182.88 cm DO Adam Ball Work Phone: [place] 10-26-2021 09:24-0400 Body mass index (BMI) [Ratio] 23.7 kg/m2 DO Adam Ball Work Phone: [place] 10-26-2021 09:24-0400 Body temperature 97.5 [degF] DO Adam Ball Work Phone: [place] 10-26-2021 09:24-0400 Body weight 79.37 kg DO Adam Ball Work Phone: [place] 2021 12:15-0400 Body height 182.88 cm Nick Modino Other [employer] Other 2021 12:15-0400 Body mass index (BMI) [Ratio] 24.27 kg/m2 Nick Palaciodano Other [employer] Other 2021 12:15-0400 Body temperature 97.2 [degF] Nick Modino Other [employer] Other 2021 12:15-0400 Body weight 81.19 kg Nick Palaciodano Other [employer] Other 2021 12:15-0400 Diastolic blood pressure 88 mm[Hg] Rustybrendan Palaciodano Other [employer] Other 2021 12:15-0400 Respiratory rate 20 /min Nick Modino Other [employer] Other 2021 12:15-0400 SaO2% (BldA) [Mass fraction] 99 % Rustybrendan Palaciodano Other [employer] Other 2021 12:15-0400 Systolic blood pressure 150 mm[Hg] Artemiojac PalacioFlavio Other [employer] Other 08-09-2021 11:58-0400 Blood Pressure Location [facility] 08-09-2021 11:58-0400 Diastolic blood pressure 83 mm[Hg] Clinton [facility] 08-09-2021 11:58-0400 Heart rate 64 /min Clinton [facility] 08-09-2021 11:58-0400 Respiratory rate 16 /min Clinton GOTTI [facility] 08-09-2021 11:58-0400 Systolic blood pressure 137 mm[Hg] Clinton [facility] 04-29-2021 14:51-0500 Body height 182.88 cm Adam E Ball Work Phone: [facility] 250 DO Work Phone: 04-29-2021 14:51-0500 Body mass index (BMI) [Ratio] 23.87 kg/m2 Adam E Ball Work Phone: [facility] 250 DO Work Phone: 04-29-2021 14:51-0500 Body surface area Derived from formula 2.02 m2 Adam E Ball Work Phone: [facility] DO Work Phone: 04-29-2021 14:51-0500 Body weight 79.83 kg Adam E Ball Work Phone: [facility] DO Work Phone: 04-29-2021 14:51-0500 Diastolic blood pressure 88 mm[Hg] Adam E Ball Work Phone: [facility] DO Work Phone: 04-29-2021 14:51-0500 Heart rate 77 /min Adma E Ball Work Phone: [facility] DO Work Phone: 04-29-2021 14:51-0500 Systolic blood pressure 138 mm[Hg] Adam Bird Ivon Work Phone: [facility] DO Work Phone: Encounters Encounter Date Encounter Type Care Provider Facility Start: 02-19-2024 [facility] Start: 10-13-2023 End: 10-13-2023 Office outpatient visit 25 minutes Steven Galarza MD Work Phone: [facility] Comment on above: Non-ischemic cardiom yopathy (Multi) (Primary Dx); LV (left ventricular) mural thrombus; Diastolic dysfunction; Pulmonary sarcoidosis (Multi); Imbalance; BMI 23.0-23.9, adult Start: 10-13-2023 End: 10-13-2023 ambulatory STEVEN GALARZA [facility] Start: 08-14-2023 End: 08-15-2023 ambulatory Clinton GOTTI Facility:[facility] Start: 08-14-2023 End: 08-14-2023 Patient encounter procedure Clinton GOTTI [facility] Start: 05-04-2023 End: 05-04-2023 ambulatory Adam Wylie Other [employer] Other Start: 05-04-2023 Telephone encounter Adam VERA G [facility] Start: 03-01-2023 End: 03-01-2023 ambulatory Adam Wylie Other [employer] Other Start: 03-01-2023 Office outpatient vi sit 25 minutes Adam Wylie [facility] Start: 12-19-2022 Rx Renewal Adam galvan Work Phone: [facility] DO Work Phone: Start: 12-04-2022 End: 12-04-2022 ambulatory Nick Muniz Other [employer] Other Start: 12-04-2022 Telephone encounter Nick vance [facility] Start: 11-28-2022 End: 11-29-2022 ambulatory Clinton GOTTI Facility:[facility] Start: 11-28-2022 End: 11-28-2022 Patient encounter procedure Clinton David [facility] Start: 09-27-2022 End: 09-27-2022 ambulatory Adam Wylie Other [employer] Other Start: 09-27-2022 Telephone encounter Adam Wylie [facility] Start: 09-16-2022 Rx Renewal Adam E Bal l Work Phone: [facility] [email or web address] 250 DO Work Phone: Start: 09-08-2022 Encounter for genera l adult medical examination without abnormal findings DR ADAM WYLIE [facility] Start: 09-02-2022 End: 09-03-[address] ADAM WYLIE Facility: Start: 09-02-2022 End: 09-03-2022 Encounter for general adult medical examination without abnormal findings DR ADAM WYLIE Facility:[facility] Start: 09-01-2022 End: 09-01-2022 ambulatory Adam Wylie Other [employer] Other Start: 09-01-2022 Patient encounter procedure Adam Wylie [facility] Start: 08-26-2022 Rx Renewal Adam E Bal l Work Phone: [facility] [email or web address] 250 DO Work Phone: Start: 08-16-2022 End: 08-16-2022 ambulatory Nick Muniz Other [employer] Other Start: 08-16-2022 Telephone encounter Nick vance [facility] Start: 05-16-2022 End: 05-16-[address] GREGG QUIROS Facility:[facility] Start: 04-22-2022 Adult health examination Nick Muniz Other [employer] Other Start: 04-19-2022 End: 04-19-[address] JOSE ALFARO . Facility:[facility] Start: 02-14-2022 End: 02-14-2022 Patient encounter procedure Clinton Hernandez [facility] Start: 02-07-2022 End: 02-08-[address] ADAM WYLIE Facility:[facility] Start: 12-13-2021 End: 12-14-[address] ADAM WYLIE Facility:[facility] Start: 11-30-2021 End: 12-01-[address] ADAM WYLIE Facility:[facility] Start: 11-16-2021 End: 11-17-2021 ambulatory MATTHEW MENDEZ Facility:[facility] Start: 11-15-2021 End: 11-15-[address] JOSE ALFARO . Facility:[facility] Start: 10-26-2021 End: 10-26-2021 Admission to same day surgery center DO Adam Wylie Work Phone: [facility] Start: 10-22-2021 End: 10-22-2021 Patient encounter procedure DO Adam Wylie Work Phone: [facility] Start: 10-07-2021 Rx Renewal Adam galvan Work Phone: [facility] 250 DO Work Phone: Start: 10-07-2021 End: 10-07-2021 ambulatory Gregg Hilliard Other [employer] Other Start: 10-07-2021 Telephone encounter Gregg Hilliard [facility] Start: 10-05-2021 End: 10-05-2021 ambulatory Nick Muniz Other [facility] [employer] Other Start: 10-05-2021 Telephone encounter Nick vance [facility] Start: 2021 End: 2021 ambulatory Nick Muniz Other [facility] [employer] Other Start: 2021 Office outpatient vi sit 15 minutes Nick Modino [facility] Start: 2021 AUDIT Adam Giron l Work Phone: [facility] [employer] 250 DO Work Phone: Start: 08-09-2021 End: 08-09-2021 Patient encounter procedure Clinton GOTTI [facility] Start: 04-29-2021 Office outpatient vi sit 25 minutes Adam Wylie Work Phone: [facility] [employer] 250 DO Work Phone: Evaluation finding Adam Brid Ba ll Work Phone: [facility] 250 DO Work Phone: Procedures Date Procedure Procedure Detail Performing Clinician Start: 09-02-[address] ADAM WYLIE Comment on above: Performed By: #### URIC, BMP, TSH #### [facility] [address] [place] [address] Dr. Fabrizio Pascual Start: 02-07-[address] ADAM WYLIE Comment on above: Performed By: #### BNP, BMP, HSTROPN ### # [facility] [address] [address] [address] Fabrizio Pascual Start: 10-26-2021 Esophagogastroduodenoscopy DO Adam merino Work Phone: Start: 09-22-2020 Urodynamic studies Clinton GOTTI Start: 08-24-2020 Cystoscopy Clinton GOTTI Start: 06-28-2017 Screening for osteoporosis Nick Palaciodano Other Start: 06-24-2016 Screening for malignant neoplasm of prostate Rustybrendan Muniz Other Arthroscopy of knee Adam Wylie Work Phone: Colonoscopy [facility] GOTTI Hemorrhoidectomy Clinton HAYES Total colonoscopy Adam Wylie Work Phone: Plan of Treatment Date Care Activity Detail Author Start: 10-18-2024 End: 10-18-2024 Patient encounter procedure 10/18/2024 1:30 PM EDT Office Visit [facility] [address] [facility] [address] [place] [address] Shannon Santana MD [address] [facility] [address] [place] [address] [facility] Start: 09-27-2023 FUV, Provider: Steven Galarza, Status: Pen, Time: 1:40 PM FUV, Provider: Steven Galarza, Status: Pen, Time: 1:40 PM [facility] 250 DO Work Phone: Start: 01-13-2023 COVID-19 Vaccine ( season) COVID-19 Vaccine ( season) [facility] Start: 10-03-2022 FUV, Provider: Stevne Galarza, Status: Pen, Time: 11:20 AM FUV, Provider: Steven Galarza, Status: Pen, Time: 11:20 AM [facility] 250 DO Work Phone: Start: 04-27-2022 FUV, Provider: Steven Galarza, Status: Pen, Time: 1:40 PM FUV, Provider: Steven Galarza, Status: Pen, Time: 1:40 PM [facility] [address] DO Work Phone: Start: 08-12-2021 Pneumococcal Vaccine: 65+ Years (3 of 3 - PPSV23 or PCV20) Pneumococcal Vaccine: 65+ Years (3 of 3 - PPSV23 or PCV20) [facility] Start: 02-22-2017 DTaP/Tdap/Td Vaccines (1 - Tdap) DTaP/Tdap/Td Vaccines (1 - Tdap) [facility] Start: 2014 RSV patients and/or patients aged 60+ years (1 - 1-dose 60+ series) RSV patients and/or patients aged 60+ years (1 - 1-dose 60+ series) [facility] Start: 2004 Zoster Vaccines (1 of 2) Zoster Vaccines (1 of 2) [facility] Start: 1972 Diabetes mellitus screening Diabetes Screening [facility] Start: 1972 Hepatitis C screening Hepatitis C Screening [facility] Start: 1954 Lipid panel Lipid Panel [facility] Start: 1955 Medicare Annual Wellness Visit Medicare Annual Wellness Visit (AWV) [facility] Start: 1955 Screening for malignant neoplasm of colon [facility] Patient Education Colon Polypectomy (DC) [facility] Work Phone: Immunizations Immunization Date Immunization Notes Care Provider Yoli lemus 03-01-2023 influenza, high dose seasonal, preservative-free Adam Wylie Other [facility] Other 03-02-2022 Fluad Quadrivalent 0 .5 ML Intramuscular Prefilled Syringe [facility]: 03-02-2022 influenza virus vaccine, split virus (incl. purified surface antigen) Nick Muniz Other [facility] Other 03-02-2022 influenza virus vaccine, unspecified formulation Clinton GOTTI [facility] 03-02-2022 influenza, seasonal, injectable Steven Galarza MD Work Phone: [facility] Work Phone: 03-02-2022 influenza, high dose seasonal, preservative-free Adam Wylie Other [facility] [employer] Other 03-26-2021 Fluzone High-Dose Quadrivalent 0.7 ML Intramuscular Suspension Prefilled Syringe Adam Wylie Work Phone: [facility] 250 DO Work Phone: 03-26-2021 influenza virus vaccine, unspecified formulation Clinton GOTTI [facility] 03-26-2021 influenza, high dose seasonal, preservative-free Steven Galarza MD Work Phone: [facility] Work Phone: 03-26-2021 Pfizer-BioNTech COVID-19 Vacc 30 MCG/0.3ML Intramuscular Suspension Adam Wylie Work Phone: [place] 02-12-2021 influenza virus vaccine, unspecified formulation Clinton GOTTI [facility] 09-14-2020 SARS-CoV-2 (COVID-19 ) mRNA BNT-162b2 vax Clinton GOTTI [facility] 08-12-2020 Pfizer-BioNTech COVID-19 Vacc 30 MCG/0.3ML Intramuscular Suspension Adam Wylie Work Phone: [place] 08-12-2020 pneumococcal conjuga te vaccine, 13 valent Steven Galarza MD Work Phone: [facility] Work Phone: 07-22-2020 Pfizer-BioNTech COVID-19 Vacc 30 MCG/0.3ML Intramuscular Suspension Adam Wylie Work Phone: [place] Comment on above: Result Comment: 2023: [id number] 02-17-2020 influenza virus vaccine, unspecified formulation Clinton GOTTI [facility] 02-17-2020 influenza, high dose seasonal, preservative-free Adam Wylie Work Phone: [place] [address] DO Work Phone: 02-13-2020 influenza virus vaccine, unspecified formulation Clintonsneha GOTTI [facility] 02-03-2020 influenza virus vaccine, split virus (incl. purified surface antigen) Nick Muniz Other [facility] Other 01-14-2020 influenza virus vaccine, unspecified formulation Clinton GOTTI [facility] 01-14-2020 influenza, high dose seasonal, preservative-free Adam Wylie Work Phone: [place] [address] DO Work Phone: 02-19-2019 influenza virus vaccine, split virus (incl. purified surface antigen) Nick Muniz Other [facility] Other 02-21-2017 influenza virus vaccine, unspecified formulation Clinton GOTTI [facility] 02-21-2017 influenza, seasonal, injectable Adam Wylie Work Phone: [place] [address] DO Work Phone: 02-21-2017 tetanus and diphther ia toxoids, adsorbed, preservative free, for adult use (5 Lf of tetanus toxoid and 2 Lf of diphtheria toxoid) Nick Muniz Other [facility] Other 06-29-2016 pneumococcal polysaccharide vaccine, 23 valent Adam Wylie Work Phone: [facility] 06-24-2016 pneumococcal conjuga te vaccine, 13 valent Adam Wylie Work Phone: [facility] 06-24-2016 pneumococcal Conjugate, unspecified formulation; Translations: [Need for prophylactic vaccination against Streptococcus pneumoniae (pneumococcus)] Nick Muniz Other [facility] Other 03-30-2016 influenza virus vaccine, split virus (incl. purified surface antigen) Artemiojac Muniz Other [facility] Other 06-16-2010 pneumococcal polysaccharide vaccine, 23 valent Nick Muniz Other [facility] Other 11-19-2003 tetanus toxoid, adsorbed Adam Wylie Work Phone: [facility] 250 DO Work Phone: Payers Date Payer Category Payer Medicare [employer] MEDICARE A ETNA MEDICARE VALUE PLAN [id number] 2023-Present [address] [place] [address] [id number] 2023 Private Health Insurance [id number] 1960 Medicare [id number] 1954 Unknown [id number] 93 1954 Unknown [id number] 93 1954 Unknown [id number] 1954 Unknown [id number] 1954 Unknown [id number] 1954 Unknown [id number] 1954 Unknown [id number] [id number] 1954 Unknown [id number] [id number] 1954 Unknown [id number] [id number] 1954 Unknown [id number] [id number] 27 1954 Unknown [id number] [id number] 1954 Unknown [id number] 244 Self-pay Self Pay [id number] Unknown MEDICARE Unknown HCAP/HFA/FAP Active [id number] Social History Date Type Detail Facility Start: 07-26-2023 Caffeine use Caffeine use -[place] [facility] DO Work Phone: Comment on above: 1-2 servings; Start: 04-05-2021 End: 07-26-2023 Tobacco smoking status Never smoked tobacco (finding) [facility] Start: 07-26-2023 [facility] At [facility] Start: 1955 Sex Assigned At Male [facility] Tobacco smoking status Never [facility] Start: 07-26-2023 Tobacco use and exposure User of smokeless tobacco [facility] Work Phone: History of tobacco use Chews Tobacco [facility] Work Phone: Start: 10-13-2023 Alcoholic beverage intake Current drinker of alcohol (finding) [facility] Work Phone: Start: 1955 Sex assigned at Not on file [facility] Work Phone: Start: 10-03-2023 End: 10-13-2023 Exposure to SARS-CoV-2 (event) Not sure [facility] Goals Date Patient Goal Desired Activity /State Functional Status Date Assessment Result Facility 08-14-2023 Functional Status N/A [facility] 11-28-2022 Functional Status N/A [facility] 02-14-2022 Functional Status N/A [facility] Clinical Notes 08-09-2021 to 10-13-2023 Steven Galarza MD - 10/13/2023 1:30 PM EDTPatient Instructions Note Date & Type Note Facility 10-13-2023 History of Present illness Narrative Subjective Mary Small is a 68 y.o. male Chief Complaint Follow-up HPI Review of Systems All other systems reviewed and are negative. Balance difficulty and dyspnea Patient returns in follow-up of problems as noted. He is done relatively well from a cardiac standpoint. His most recent echocardiogram demonstrated an ejection fraction of 45%. It is been about 8 years and we offered to repeat it but he declines the offer and states he does not wish to do so. He does have some shortness of breath. This was discussed and explored in great detail. He has no edema, no ascites, no JVD or rales. He has no orthopnea or PND. Simply dyspnea with exertion. Chart review demonstrates that we attempted to treat it last year with diuretics but he noted no change or improvement in symptoms and because of this we ultimately decided that diuretics for presumed diastolic dysfunction were of no benefit because it did not improve his symptoms, and hence, I doubt that he has any diastolic heart failure per se and is probably a pulmonary problem. This was discussed in great detail and he is educated and reminded of all of the pertinent issues. He understands and agrees. Vitals: 10/13/23 1335 BP: 138/78 BP Location: Right arm Patient Position: Sitting Pulse: 72 Weight: 77.1 kg (170 lb) Height: 1.829 m (6') Objective Physical Exam Constitutional: Appearance: Normal appearance. HENT: Nose: Nose normal. Neck: Vascular: No carotid bruit. Cardiovascular: Rate and Rhythm: Normal rate. Pulses: Normal pulses. Heart sounds: Normal heart sounds. Pulmonary: Effort: Pulmonary effort is normal. Abdominal: General: Bowel sounds are normal. Palpations: Abdomen is soft. Musculoskeletal: General: Normal range of motion. Cervical back: Normal range of motion. Right lower leg: No edema. Left lower leg: No edema. Skin: General: Skin is warm and dry. Neurological: General: No focal deficit present. Mental Status: He is alert. Psychiatric: Mood and Affect: Mood normal. Behavior: Behavior normal. Thought Content: Thought content normal. Judgment: Judgment normal. Allergies Patient has no known allergies. Current Medications Current Outpatient Medications: albuterol (Ventolin HFA) 90 mcg/actuation inhaler, Inhale 2 puffs every 4 hours if needed., Disp: , Rfl: carvedilol (Coreg) 12.5 mg tablet, Take 1 tablet (12.5 mg) by mouth 2 times a day., Disp: , Rfl: finasteride (Proscar) 5 mg tablet, Take 1 tablet (5 mg) by mouth once daily., Disp: , Rfl: ipratropium-albuteroL (Duo-Neb) 0.5-2.5 mg/3 mL nebulizer solution, Inhale 3 mL every 6 hours if needed., Disp: , Rfl: multivitamin (Multiple Vitamins) tablet, Take 1 tablet by mouth once daily., Disp: , Rfl: pantoprazole (ProtoNix) 20 mg EC tablet, Take 1 tablet (20 mg) by mouth once daily in the morning. Take before meals. Do not crush, chew, or split., Disp: , Rfl: predniSONE (Deltasone) 5 mg tablet, Take 1 tablet (5 mg) by mouth once daily., Disp: , Rfl: sacubitriL-valsartan (Entresto) 24-26 mg tablet, Take 1 tablet by mouth 2 times a day., Disp: , Rfl: tamsulosin (Flomax) 0.4 mg 24 hr capsule, Take 1 capsule (0.4 mg) by mouth 2 times a day., Disp: , Rfl: Assessment/Plan 1. Non-ischemic cardiomyopathy (Multi) 2. LV (left ventricular) mural thrombus 3. Diastolic dysfunction 4. Pulmonary sarcoidosis (Multi) 5. Imbalance 6. BMI 23.0-23.9, adult Scribe Attestation By signing my name below, I, Beverley Bustillos LPN , Scribe attest that this documentation has been prepared under the direction and in the presence of Steven Galarza MD. Provider Attestation - Scribe documentation All medical record entries made by the Scribe were at my direction and personally dictated by me. I have reviewed the chart and agree that the record accurately reflects my personal performance of the history, physical exam, discussion and plan. documented in this encounter [facility] Work Phone: 10-13-2023 Instructions Beverley Morse LPN - 10/13/2023 1:30 PM EDT Please bring all medicines, vitamins, and herbal supplements with you when you come to the office. Prescriptions will not be filled unless you are compliant with your follow up appointments or have a follow up appointment scheduled as per instruction of your physician. Refills should be requested at the time of your visit. documented in this encounter [facility] Work Phone: 08-14-2023 Hospital Discharge instructions Patient Education 08/14/2023 16:09:27 Benign Prostatic Hyperplasia Benign Prostatic Hyperplasia Benign prostatic hyperplasia (BPH) is an enlarged prostate gland that is caused by the normal aging process. The prostate may get bigger as a man gets older. The condition is not caused by cancer. The prostate is a walnut-sized gland that is involved in the production of semen. It is located in front of the rectum and below the bladder. The bladder stores urine. The urethra carries stored urine out of the body. An enlarged prostate can press on the urethra. This can make it harder to pass urine. The buildup of urine in the bladder can cause infection. Back pressure and infection may progress to bladder damage and kidney (renal) failure. What are the causes? This condition is part of the normal aging process. However, not all men develop problems from this condition. If the prostate enlarges away from the urethra, urine flow will not be blocked. If it enlarges toward the urethra and compresses it, there will be problems passing urine. What increases the risk? This condition is more likely to develop in men older than 50 years. What are the signs or symptoms? Symptoms of this condition include: Getting up often during the night to urinate. Needing to urinate frequently during the day. Difficulty starting urine flow. Decrease in size and strength of your urine stream. Leaking (dribbling) after urinating. Inability to pass urine. This needs immediate treatment. Inability to completely empty your bladder. Pain when you pass urine. This is more common if there is also an infection. Urinary tract infection (UTI). How is this diagnosed? This condition is diagnosed based on your medical history, a physical exam, and your symptoms. Tests will also be done, such as: A post-void bladder scan. This measures any amount of urine that may remain in your bladder after you finish urinating. A digital rectal exam. In a rectal exam, your health care provider checks your prostate by putting a lubricated, gloved finger into your rectum to feel the back of your prostate gland. This exam detects the size of your gland and any abnormal lumps or growths. An exam of your urine (urinalysis). A prostate specific antigen (PSA) screening. This is a blood test used to screen for prostate cancer. An ultrasound. This test uses sound waves to electronically produce a picture of your prostate gland. Your health care provider may refer you to a specialist in kidney and prostate diseases (urologist). How is this treated? Once symptoms begin, your health care provider will monitor your condition (active surveillance or watchful waiting). Treatment for this condition will depend on the severity of your condition. Treatment may include: Observation and yearly exams. This may be the only treatment needed if your condition and symptoms are mild. Medicines to relieve your symptoms, including: ?Medicines to shrink the prostate. ?Medicines to relax the muscle of the prostate. Surgery in severe cases. Surgery may include: ?Prostatectomy. In this procedure, the prostate tissue is removed completely through an open incision or with a laparoscope or robotics. ?Transurethral resection of the prostate (TURP). In this procedure, a tool is inserted through the opening at the tip of the penis (urethra). It is used to cut away tissue of the inner core of the prostate. The pieces are removed through the same opening of the penis. This removes the blockage. ?Transurethral incision (TUIP). In this procedure, small cuts are made in the prostate. This lessens the prostate's pressure on the urethra. ?Transurethral microwave thermotherapy (TUMT). This procedure uses microwaves to create heat. The heat destroys and removes a small amount of prostate tissue. ?Transurethral needle ablation (TUNA). This procedure uses radio frequencies to destroy and remove a small amount of prostate tissue. ?Interstitial laser coagulation (ILC). This procedure uses a laser to destroy and remove a small amount of prostate tissue. ?Transurethral electrovaporization (TUVP). This procedure uses electrodes to destroy and remove a small amount of prostate tissue. ?Prostatic urethral lift. This procedure inserts an implant to push the lobes of the prostate away from the urethra. Follow these instructions at home: Take gqha-lxy-hizzqwd and prescription medicines only as told by your health care provider. Monitor your symptoms for any changes. Contact your health care provider with any changes. Avoid drinking large amounts of liquid before going to bed or out in public. Avoid or reduce how much caffeine or alcohol you drink. Give yourself time when you urinate. Keep all follow-up visits. This is important. Contact a health care provider if: You have unexplained back pain. Your symptoms do not get better with treatment. You develop side effects from the medicine you are taking. Your urine becomes very dark or has a bad smell. Your lower abdomen becomes distended and you have trouble passing urine. Get help right away if: You have a fever or chills. You suddenly cannot urinate. You feel light-headed or very dizzy, or you faint. There are large amounts of blood or clots in your urine. Your urinary problems become hard to manage. You develop moderate to severe low back or flank pain. The flank is the side of your body between the ribs and the hip. These symptoms may be an emergency. Get help right away. Call 911. Do not wait to see if the symptoms will go away. Do not drive yourself to the hospital. Summary Benign prostatic hyperplasia (BPH) is an enlarged prostate that is caused by the normal aging process. It is not caused by cancer. An enlarged prostate can press on the urethra. This can make it hard to pass urine. This condition is more likely to develop in men older than 50 years. Get help right away if you suddenly cannot urinate. This information is not intended to replace advice given to you by your health care provider. Make sure you discuss any questions you have with your health care provider. Document Revised: 11/17/2021 Document Reviewed: 11/17/2021 [employer] Patient Education 2022 [employer]. Follow Up Care 11/28/2022 14:06:23 With:EMERSON SALMON, Clinton Hernandez, URL Address: [facility] [address] , [place] [address]- [phone] When: Unknown 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 They are also encouraged to continue exercise to achieve/maintain a normal BMI. Patient is instructed on home BP measurements: - rest for 5 minutes w/o talking- positioned w/ feet on floor and arm supported- average best 2/3 readings w/ goal < 135/85 Instructed to stop in for recheck in 2 wks Feb, Nonischemic cardiomyopathy (ICD-10 - I42.8) Low salt diet and monitor weights daily. Notify office w/ gain of > 3lbs, change in breathlessness or increased edema. Feb, Chronic HFrEF (heart failure with reduced ejection fraction) (ICD-10 - I50.22) Instructed on low salt diet, exercise and daily weights. Instructed to notify office for any unexpected weight gain > 3lbs and/or increased dyspnea, difficulty breathing during sleep, worsening lower extremity swelling, chest pain or lightheadedness. 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 Feb, Lumbar spondylosis (ICD-10 - M47.816) The patient is instructed to avoid bending, twisting or lifting. They are to use intermittent heat and ice as needed. They may schedule a massage or gentle manipulation. They may safely use Tylenol as needed. [facility] Other 07-23-2023 Evaluation note* Encounter Date Diagnosis Assessment Notes Treatment Notes Treatment Clinical Notes Nov, Acoustic neuroma (ICD-10 - D33.3) MRI: [id number] left IAC - 12/2021 (no change from 2017) [facility] Other 07-17-2023 Hospital Discharge instructions Patient Education 11/28/2022 14:01:15 Clean Intermittent Catheterization, Male Clean Intermittent Catheterization, Male Clean intermittent catheterization (CIC) is a procedure to remove urine from the bladder by placinga small, flexible tube (catheter) into the bladder though the urethra. The urethra is a tube in thebody that carries urine from the bladder out of the body. CIC may be done when: You cannot completely empty your bladder on your own. This may be due to a blockage in the bladder or urethra. Your bladder leaks urine. This may happen when the muscles or nerves near the bladder are not working normally, so the bladder overflows. Your health care provider will show you how to perform CIC and will help you to become comfortable performing this procedure at home. Your health care provider will also help you to get the home caresupplies that are needed for this procedure. Supplies needed: Germ-free (sterile), water-based lubricant. A container for urine collection. You may also use the toilet to dispose of urine from the catheter. A catheter. Your health care provider will determine the best size for you. ?Use this catheter size: Clean gloves. Soap and water. Towel. How to perform this procedure: Most people need CIC at least 4 times per day to adequately empty the bladder. Your health care provider will tell you how often you should perform CIC. Number of times per day to perform CIC: To perform CIC, follow these steps: 1.Wash your hands with soap and water. If soap and water are not available, use hand postdoctoral research associate. 2.Clean your penis with soap and water. Dry the tip of your penis completely. 3.Prepare the supplies that you will use during the procedure. Open the catheter package and lubricant. 4.Get in a comfortable position. Possible positions include: Sitting on a toilet, a chair, or the edge of a bed. Standing near a toilet. Lying down with your head raised on pillows and your knees pointing to the ceiling. You may wish toplace a waterproof mat or pad under you. 5.If you are using a urine collection container, position it between your legs. 6.Urinate, if you are able. 7.Put on gloves. 8.Apply lubricant to about 2 inches (5 cm) of the tip of the catheter. 9.Set the catheter down on a clean, dry surface within reach. 10.Gently stretch your penis out from your body. Pull back any skin that covers the end of your penis (foreskin). Clean the end of your penis with medicated sterile swabs as told by your health care provider. 11.Hold your penis upward at a 45 60 degree angle. This helps to straighten the urethra. 12.Slowly insert the lubricated catheter straight into your urethra until urine flows freely. This is usually about 6 8 inches (15 20 cm). 13.When urine starts to flow freely, insert the catheter 1 inch (3 cm) more. Allow urine to drain into the toilet or the urine collection container. 14.When urine stops flowing, slowly remove the catheter. 15.Note the color, amount, and odor of the urine. 16.Measure your urine and note the amount, if told by your health care provider. 17.Discard the urine in the toilet. 18.Clean your penis using soap and water. 19.Move the foreskin back in place, if applicable. 20.If you are using a single-use catheter, discard the catheter and supplies. 21.Wash your hands with soap and water. 22.If you are using a reusable catheter, follow package instructions about how to clean the catheter after each use. How often should I perform this procedure? Do CIC to empty your bladder every 4 6 hours or as often as told by your health care provider. If you have symptoms of too much urine in your bladder (overdistension) and you are not able to urinate, perform CIC. Symptoms of overdistension may include: ?Restlessness. ?Sweating or chills. ?Headache. ?Flushed or pale skin. ?Bloated lower abdomen. What are the risks? Generally, this is a safe procedure, however problems may occur, including: Infection. Injury to the urethra. Irritation of the urethra. Follow these instructions at home General instructions Drink enough fluid to keep your urine pale yellow. Dispose of a multiple use catheter when it becomes dry, brittle, or cloudy. This usually happens after you use the catheter for 1 week. Avoid caffeine. Caffeine may make you need to urinate more frequently and more urgently. When traveling, bring extra supplies with you in case of delays. Keep supplies with you in a place that you can access easily. If traveling by plane: ?Make sure that the lubricant in your carry-on bag is less than 3.4 ounces (100 mL). ?Use a single-use catheter. It may be difficult to clean a reusable catheter in a small bathroom. Take sumb-zvt-pfarhxk and prescription medicines only as told by your health care provider. Keep all follow-up visits as told by your health care provider. This is important. Contact a health care provider if you: Have difficulty performing CIC. Have urine leaking during CIC. Have: ?Dark or cloudy urine. ?Blood in your urine or in your catheter. ?A change in the smell of your urine or discharge. ?A burning feeling while you urinate. Feel nauseous or you vomit. Have pain in your abdomen, your back, or your sides below your ribs. Have swelling or redness around the opening of your urethra. Develop a rash or sores on your skin. Get help right away if you have: A fever. Symptoms that do not go away after 3 days. Symptoms that suddenly get worse. Severe pain. A decrease in the amount of urine that drains from your bladder. Summary Clean intermittent catheterization (CIC) is a procedure to remove urine from the bladder by placinga small, flexible tube (catheter) into the bladder though the urethra. Your health care provider will show you how to perform CIC and will help you to become comfortable performing this procedure at home. Most people need CIC at least 4 times per day to adequately empty the bladder. This information is not intended to replace advice given to you by your health care provider. Make sure you discuss any questions you have with your health care provider. Document Revised: 03/07/2022 Document Reviewed: 03/07/2022 [employer] Patient Education 2022 [employer]. 11/28/2022 14:00:56 Benign Prostatic Hyperplasia Benign Prostatic Hyperplasia Benign prostatic hyperplasia (BPH) is an enlarged prostate gland that is caused by the normal agingprocess. The prostate may get bigger as a man gets older. The condition is not caused by cancer. The prostate is a walnut-sized gland that is involved in the production of semen. It is located in front of the rectum and below the bladder. The bladder stores urine. The urethra carries stored urine ou t of the body. An enlarged prostate can press on the urethra. This can make it harder to pass urine. The buildup of urine in the bladder can cause infection. Back pressure and infection may progress to bladder damage and kidney (renal) failure. What are the causes? This condition is part of the normal aging process. However, not all men develop problems from thiscondition. If the prostate enlarges away from the urethra, urine flow will not be blocked. If it enlarges toward the urethra and compresses it, there will be problems passing urine. What increases the risk? This condition is more likely to develop in men older than 50 years. What are the signs or symptoms? Symptoms of this condition include: Getting up often during the night to urinate. Needing to urinate frequently during the day. Difficulty starting urine flow. Decrease in size and strength of your urine stream. Leaking (dribbling) after urinating. Inability to pass urine. This needs immediate treatment. Inability to completely empty your bladder. Pain when you pass urine. This is more common if there is also an infection. Urinary tract infection (UTI). How is this diagnosed? This condition is diagnosed based on your medical history, a physical exam, and your symptoms. Tests will also be done, such as: A post-void bladder scan. This measures any amount of urine that may remain in your bladder after you finish urinating. A digital rectal exam. In a rectal exam, your health care provider checks your prostate by putting a lubricated, gloved finger into your rectum to feel the back of your prostate gland. This exam detects the size of your gland and any abnormal lumps or growths. An exam of your urine (urinalysis). A prostate specific antigen (PSA) screening. This is a blood test used to screen for prostate cancer. An ultrasound. This test uses sound waves to electronically produce a picture of your prostate gland. Your health care provider may refer you to a specialist in kidney and prostate diseases (urologist). How is this treated? Once symptoms begin, your health care provider will monitor your condition (active surveillance or watchful waiting). Treatment for this condition will depend on the severity of your condition. Treatment may include: Observation and yearly exams. This may be the only treatment needed if your condition and symptoms are mild. Medicines to relieve your symptoms, including: ?Medicines to shrink the prostate. ?Medicines to relax the muscle of the prostate. Surgery in severe cases. Surgery may include: ?Prostatectomy. In this procedure, the prostate tissue is removed completely through an open incision or with a laparoscope or robotics. ?Transurethral resection of the prostate (TURP). In this procedure, a tool is inserted through the opening at the tip of the penis (urethra). It is used to cut away tissue of the inner core of the prostate. The pieces are removed through the same opening of the penis. This removes the blockage. ?Transurethral incision (TUIP). In this procedure, small cuts are made in the prostate. This lessens the prostate's pressure on the urethra. ?Transurethral microwave thermotherapy (TUMT). This procedure uses microwaves to create heat. The heat destroys and removes a small amount of prostate tissue. ?Transurethral needle ablation (TUNA). This procedure uses radio frequencies to destroy and remove a small amount of prostate tissue. ?Interstitial laser coagulation (ILC). This procedure uses a laser to destroy and remove a small amount of prostate tissue. ?Transurethral electrovaporization (TUVP). This procedure uses electrodes to destroy and remove a small amount of prostate tissue. ?Prostatic urethral lift. This procedure inserts an implant to push the lobes of the prostate away from the urethra. Follow these instructions at home: Take uois-pya-nyqhmac and prescription medicines only as told by your health care provider. Monitor your symptoms for any changes. Contact your health care provider with any changes. Avoid drinking large amounts of liquid before going to bed or out in public. Avoid or reduce how much caffeine or alcohol you drink. Give yourself time when you urinate. Keep all follow-up visits. This is important. Contact a health care provider if: You have unexplained back pain. Your symptoms do not get better with treatment. You develop side effects from the medicine you are taking. Your urine becomes very dark or has a bad smell. Your lower abdomen becomes distended and you have trouble passing urine. Get help right away if: You have a fever or chills. You suddenly cannot urinate. You feel light-headed or very dizzy, or you faint. There are large amounts of blood or clots in your urine. Your urinary problems become hard to manage. You develop moderate to severe low back or flank pain. The flank is the side of your body between the ribs and the hip. These symptoms may be an emergency. Get help right away. Call 911. Do not wait to see if the symptoms will go away. Do not drive yourself to the hospital. Summary Benign prostatic hyperplasia (BPH) is an enlarged prostate that is caused by the normal aging process. It is not caused by cancer. An enlarged prostate can press on the urethra. This can make it hard to pass urine. This condition is more likely to develop in men older than 50 years. Get help right away if you suddenly cannot urinate. This information is not intended to replace advice given to you by your health care provider. Make sure you discuss any questions you have with your health care provider. Document Revised: 11/17/2021 Document Reviewed: 11/17/2021 [employer] Patient Education 2022 [employer]. 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 They are also encouraged to continue exercise to achieve/maintain a normal BMI. Aug, Benign prostatic hyperplasia with lower urinary tract symptoms (ICD-10 - N40.1) Yearly BABATUNDE and PSA Symptoms tolerable: Flomax and Finasteride Aug, Other retention of urine (ICD-10 - R33.8) Self catheterization during daytime Aug, Lumbar spondylosis (ICD-10 - M47.816) The patient is instructed to avoid bending, twisting or lifting. They are to use intermittent heat and ice as needed. They may schedule a massage or gentle manipulation. They may safely use Tylenol as needed. Aug, Medicare annual wellness visit, subsequent (ICD-10 - Z00.00) Personalized health advice was given to the beneficiary including a written plan for screenings discussed and provided. Advanced care planning reviewed and/or information given as requested. Additional counseling was provided here today in regards to, [ ]. The above visit was performed by [ ], under direct supervision of [ ]. Document reviewed and amended by provider signed below. Healthy diet and exercise. Reviewed age-appropriate preventive testing recommended. Aug, Screening PSA (prostate specific antigen) (ICD-10 - Z12.5) Aug, High risk medication use (ICD-10 - Z79.899) Aug, Hyponatremia (ICD-10 - E87.1) Decrease alcohol use, water restrict to 48 oz daily, salt food. Aug, Gastroesophageal reflux disease with esophagitis without hemorrhage (ICD-10 - K21.00) Aug, Nonischemic cardiomyopathy (ICD-10 - I42.8) Aug, Chronic HFrEF (heart failure with reduced ejection fraction) (ICD-10 - I50.22) [facility] Other 10-03-2022 Hospital Discharge instructions Patient Education 02/14/2022 12:20:02 Acute Urinary Retention, Male, Vvjs-yp-[id number] Acute Urinary Retention, Male Acute urinary retention means that you cannot pee (urinate) at all, or that you pee too little and your bladder is not emptied completely. If it is not treated, it can lead to kidney damage or other serious problems. Follow these instructions at home: Take wdkv-rdw-igwwrpu and prescription medicines only as told by your doctor. Ask your doctor what medicines you should stay away from. Do not take any medicine unless your doctor says it is okay to do so. If you were sent home with a tube that drains the bladder (catheter), take care of it as told by your doctor. Drink enough fluid to keep your pee clear or pale yellow. If you were given an antibiotic, take it as told by your doctor. Do not stop taking the antibiotic even if you start to feel better. Do not use any products that contain nicotine or tobacco, such as cigarettes and e-cigarettes. If you need help quitting, ask your doctor. Watch for changes in your symptoms. Tell your doctor about them. If told, track changes in your blood pressure at home. Tell your doctor about them. Keep all follow-up visits as told by your doctor. This is important. Contact a doctor if: You have spasms or you leak pee when you have spasms. Get help right away if: You have chills or a fever. You have a tube that drains the bladder and: ?The tube stops draining pee. ?The tube falls out. You have blood in your pee. Summary Acute urinary retention means that you have problems peeing. It may mean that you cannot pee at all, or that you pee too little. If this condition is not treated, it can lead to kidney damage or other serious problems. If you were sent home with a tube that drains the bladder, take care of it as told by your doctor. Monitor any changes in your symptoms. Tell your doctor about any changes. This information is not intended to replace advice given to you by your health care provider. Make sure you discuss any questions you have with your health care provider. Document Released: 10/17/2008 Document Revised: 07/18/2019 Document Reviewed: 06/02/2017 [employer] Patient Education 2020 [employer]. Follow Up Care 08/09/2021 13:00:29 With:EMERSON SALMON, Clinton Hernandez, URL Address: [facility] [address] [place] [phone] When:08/15/2022 [facility] 06-14-2022 History and physical note Author Gregg Hilliard [place] October 26, 2021 10:26am Note Date/Time October 26, 2021 10:1 5am [facility] [address] [place], [place] [id number] Gastroenterology H&P Signed Patient: Mary Small MR#: [id number] : 1955 Acct:[id number] Age/Sex: 66 / M Adm Date: 2 Loc: Room: Type: [facility] Attending Dr: Gregg Hilliard DO Copies to: DO Gregg Waller Jr, DO~ Date of Service: 10/26/2021 Gastroenterology HPI History of Present Illness HPI: Mr. Small is a 66 year old male for anemia and history of polyps. No outwardsigns of bleeding. Negative family history. Last EGD and colonoscopy were 5 yrs ago. Review of Systems Review of Systems All other systems reviewed & are negative unless noted below or in HPI PMFSH Vaccinated for COVID-19?: Yes Medical History Anemia, chronic disease Chronic respiratory failure with hypoxia Chronic systolic (congestive) heart failure COPD (chronic obstructive pulmonary disease) Dizziness Hemoptysis History of benign skin tumor Hypertension Hyponatremia Internal hemorrhoids Nonischemic cardiomyopathy Sarcoidosis Surgical History History of arthroscopic knee surgery Family History Mother Heart disease Social History Smoking Status: Never smoker Substance Use Type: Alcohol Substance Abuse Comment: 6 pack per day Meds Home and Active Medications Home and Active Medications: Home Medications albuterol sulfate 90 mcg/actuation aerosol inhaler (Ventolin HFA) 2 puff INHALATION Q6H PRN 05/11/18 [History Confirmed 10/26/21] ipratropium 0.5 mg-albuterol 3 mg (2.5 mg base)/3 mL nebulization soln 3 ml INHALATION Q6-8H PRN 05/11/18 [History Confirmed 10/26/21] sacubitril 24 mg-valsartan 26 mg tablet (Entresto) 1 tab PO BID 05/11/18 [History Confirmed 10/26/21] tiotropium bromide 18 mcg capsule with inhalation device (Spiriva with HandiHaler) 1 cap INHALATION DAILY 05/11/18 [History Confirmed 10/26/21] fluticasone propionate 230 mcg-salmeterol 21 mcg/actuation HFA inhaler (Advair HFA) 2 inh INHALATION BID #8 gm 05/13/18 [Rx Confirmed 10/26/21] carvedilol 12.5 mg tablet 12.5 mg PO BID 02/10/19 [History Confirmed 10/26/21] prednisone 20 mg tablet 5 mg PO DAILY 02/10/19 [History Confirmed 10/26/21] finasteride 5 mg tablet 5 mg PO DAILY 10/25/21 [History Confirmed 10/26/21] furosemide 20 mg tablet 20 mg PO DAILY 10/25/21 [History Confirmed 10/26/21] Active Medications Sodium Chloride (0.9% Sodium Chloride 1,000 Ml) 1,000 mls @ 20 mls/hr IV .Q24H ALEX Stop: 10/26/22 09:14 Last Admin: 10/26/21 09:23 Dose: 20 mls/hr Documented by: Sodium Chloride (Sodium Chloride 0.9 % 10 Ml Syringe) 0 ml IV-PUSH PRN PRN PRN Reason: Flush Stop: 10/26/22 09:08 Exam Physical Exam Vital Signs: Temp Pulse Resp BP Pulse Ox 97.5 F L 65 18 134/83 98 10/26/21 09:24 10/26/21 09:24 10/26/21 09:24 10/26/21 09:24 10/26/21 09:24 Const General: no acute distress Orientation: alert and oriented x3 Resp Effort & Inspection: normal respiratory effort Auscultation: clear to auscultation bilaterally Cardio Rate: regular rate Rhythm: regular rhythm GI Palpation: soft and nontender Auscultation: normal bowel sounds Extrem General: no edema A&P - Gastroenterology Assessment/Plan (1) Anemia: Code(s): D64.9 - Anemia, unspecified Status: Acute (2) Personal history of colonic polyps: Code(s): Z86.010 - Personal history of colonic polyps Status: Acute Plan EGD and colonoscopy for evaluation Documented By: Gregg Hilliard Jr, DO 10/26/21 101 1 Signed By: <Electronically signed by Gregg Hilliard Jr, > 10/26/21 1026 [facility] Work Phone: [phone]) 346-927106-14-2022 [place]20[place] Evaluation note* Encounter Date Diagnosis Assessment Notes Treatment Notes Treatment Clinical Notes September, History of colon polyps (ICD-10 - Z86.010) September, Anemia, unspecified type (ICD-10 - D64.9) [facility] Other 05-24-2022 Evaluation note* Encounter Date Diagnosis Assessment Notes Treatment Notes Treatment Clinical Notes September, Chronic obstructive pulmonary disease, unspecified (ICD-10 - J44.9) [facility] Other 04-06-2022 Evaluation note* Encounter Date Diagnosis Assessment Notes Treatment Notes Treatment Clinical Notes Aug, 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 The urethra is a tube in thebody that carries urine from the bladder out of the body. CIC may be done when: You cannot completely empty your bladder on your own. This may be due to a blockage in the bladder or urethra. Your bladder leaks urine. This may happen when the muscles or nerves near the bladder are not working normally, so the bladder overflows. Your health care provider will show you how to perform CIC and will help you to become comfortable performing this procedure at home. Your health care provider will also help you to get the home caresupplies that are needed for this procedure. Supplies needed: Germ-free (sterile), water-based lubricant. A container for urine collection. You may also use the toilet to dispose of urine from the catheter. A catheter. Your health care provider will determine the best size for you. ?Use this catheter size: Sterile gloves. Sterile gauze. Medicated sterile swabs. How to perform this procedure: Most people need CIC at least 4 times per day to adequately empty the bladder. Your health care provider will tell you how often you should perform CIC. Number of times per day to perform CIC: To perform CIC, follow these steps: 1.Wash your hands with soap and water. If soap and water are not available, use hand postdoctoral research associate. 2.Prepare the supplies that you will use during the procedure. Open the catheter pack, the lubricant, and the pack of medicated sterile swabs. If you have been told to keep the procedure sterile, do not touch your supplies until you are wearing gloves. 3.Get in a comfortable position. Possible positions include: Sitting on a toilet, a chair, or the edge of a bed. Standing near a toilet. Lying down with your head raised on pillows and your knees pointing to the ceiling. You may wish toplace a waterproof mat or pad under you. 4.If you are using a urine collection container, position it between your legs. 5.Urinate, if you are able. 6.Put on gloves. 7.Apply lubricant to about 2 inches (5 cm) of the tip of the catheter. 8.Set the catheter down on a clean, dry surface within reach. 9.Gently stretch your penis out from your body. Pull back any skin that covers the end of your penis (foreskin). Clean the end of your penis with medicated sterile swabs as told by your health care provider. 10.Hold your penis upward at a 45 60 degree angle. This helps to straighten the urethra. 11.Slowly insert the lubricated catheter straight into your urethra until urine flows freely. This is usually about 6 8 inches (15 20 cm). 12.When urine starts to flow freely, insert the catheter 1 inch (3 cm) more. Allow urine to drain into the toilet or the urine collection container. 13.When urine stops flowing, slowly remove the catheter. 14.Note the color, amount, and odor of the urine. 15.Measure your urine and note the amount, if told by your health care provider. 16.Discard the urine in the toilet. 17.Clean your penis using soap and water. 18.Move the foreskin back in place, if applicable. 19.If you are using a single-use catheter, discard the catheter and supplies. 20.Wash your hands with soap and water. 21.If you are using a reusable catheter, follow package instructions about how to clean the catheter after each use. How often should I perform this procedure? Do CIC to empty your bladder every 4 6 hours or as often as told by your health care provider. If you have symptoms of too much urine in your bladder (overdistension) and you are not able to urinate, perform CIC. Symptoms of overdistension may include: ?Restlessness. ?Sweating or chills. ?Headache. ?Flushed or pale skin. ?Bloated lower abdomen. What are the risks? Generally, this is a safe procedure, however problems may occur, including: Infection. Injury to the urethra. Irritation of the urethra. Follow these instructions at home General instructions Drink enough fluid to keep your urine pale yellow. Dispose of a multiple use catheter when it becomes dry, brittle, or cloudy. This usually happens after you use the catheter for 1 week. Avoid caffeine. Caffeine may make you need to urinate more frequently and more urgently. When traveling, bring extra supplies with you in case of delays. Keep supplies with you in a place that you can access easily. If traveling by plane: ?Make sure that the lubricant in your carry-on bag is less than 3.4 ounces (100 mL). ?Use a single-use catheter. It may be difficult to clean a reusable catheter in a small bathroom. Take gioz-ank-yclkvkr and prescription medicines only as told by your health care provider. Keep all follow-up visits as told by your health care provider. This is important. Contact a health care provider if you: Have difficulty performing CIC. Have urine leaking during CIC. Have: ?Dark or cloudy urine. ?Blood in your urine or in your catheter. ?A change in the smell of your urine or discharge. ?A burning feeling while you urinate. Feel nauseous or you vomit. Have pain in your abdomen, your back, or your sides below your ribs. Have swelling or redness around the opening of your urethra. Develop a rash or sores on your skin. Get help right away if you have: A fever. Symptoms that do not go away after 3 days. Symptoms that suddenly get worse. Severe pain. A decrease in the amount of urine that drains from your bladder. Summary Clean intermittent catheterization (CIC) is a procedure to remove urine from the bladder by placinga small, flexible tube (catheter) into the bladder though the urethra. Your health care provider will show you how to perform CIC and will help you to become comfortable performing this procedure at home. Most people need CIC at least 4 times per day to adequately empty the bladder. This information is not intended to replace advice given to you by your health care provider. Make sure you discuss any questions you have with your health care provider. Document Released: 06/03/2011 Document Revised: 08/21/2019 Document Reviewed: 12/20/2018 [employer] Patient Education 2020 [employer]. 08/09/2021 12:46:36 Benign Prostatic Hyperplasia Benign Prostatic Hyperplasia Benign prostatic hyperplasia (BPH) is an enlarged prostate gland that is caused by the normal agingprocess and not by cancer. The prostate is a walnut-sized gland that is involved in the production of semen. It is located in front of the rectum and below the bladder. The bladder stores urine and the urethra is the tube that carries the urine out of the body. The prostate may get bigger as a man gets older. An enlarged prostate can press on the urethra. This can make it harder to pass urine. The build-up of urine in the bladder can cause infection. Back pressure and infection may progress to bladder damage and kidney (renal) failure. What are the causes? This condition is part of a normal aging process. However, not all men develop problems from this condition. If the prostate enlarges away from the urethra, urine flow will not be blocked. If it enlarges toward the urethra and compresses it, there will be problems passing urine. What increases the risk? This condition is more likely to develop in men over the age of 50 years. What are the signs or symptoms? Symptoms of this condition include: Getting up often during the night to urinate. Needing to urinate frequently during the day. Difficulty starting urine flow. Decrease in size and strength of your urine stream. Leaking (dribbling) after urinating. Inability to pass urine. This needs immediate treatment. Inability to completely empty your bladder. Pain when you pass urine. This is more common if there is also an infection. Urinary tract infection (UTI). How is this diagnosed? This condition is diagnosed based on your medical history, a physical exam, and your symptoms. Tests will also be done, such as: A post-void bladder scan. This measures any amount of urine that may remain in your bladder after you finish urinating. A digital rectal exam. In a rectal exam, your health care provider checks your prostate by putting a lubricated, gloved finger into your rectum to feel the back of your prostate gland. This exam detects the size of your gland and any abnormal lumps or growths. An exam of your urine (urinalysis). A prostate specific antigen (PSA) screening. This is a blood test used to screen for prostate cancer. An ultrasound. This test uses sound waves to electronically produce a picture of your prostate gland. Your health care provider may refer you to a specialist in kidney and prostate diseases (urologist). How is this treated? Once symptoms begin, your health care provider will monitor your condition (active surveillance or watchful waiting). Treatment for this condition will depend on the severity of your condition. Treatment may include: Observation and yearly exams. This may be the only treatment needed if your condition and symptoms are mild. Medicines to relieve your symptoms, including: ?Medicines to shrink the prostate. ?Medicines to relax the muscle of the prostate. Surgery in severe cases. Surgery may include: ?Prostatectomy. In this procedure, the prostate tissue is removed completely through an open incision or with a laparoscope or robotics. ?Transurethral resection of the prostate (TURP). In this procedure, a tool is inserted through the opening at the tip of the penis (urethra). It is used to cut away tissue of the inner core of the prostate. The pieces are removed through the same opening of the penis. This removes the blockage. ?Transurethral incision (TUIP). In this procedure, small cuts are made in the prostate. This lessens the prostate's pressure on the urethra. ?Transurethral microwave thermotherapy (TUMT). This procedure uses microwaves to create heat. The heat destroys and removes a small amount of prostate tissue. ?Transurethral needle ablation (TUNA). This procedure uses radio frequencies to destroy and remove a small amount of prostate tissue. ?Interstitial laser coagulation (ILC). This procedure uses a laser to destroy and remove a small amount of prostate tissue. ?Transurethral electrovaporization (TUVP). This procedure uses electrodes to destroy and remove a small amount of prostate tissue. ?Prostatic urethral lift. This procedure inserts an implant to push the lobes of the prostate away from the urethra. Follow these instructions at home: Take egzs-sea-muqfyxw and prescription medicines only as told by your health care provider. Monitor your symptoms for any changes. Contact your health care provider with any changes. Avoid drinking large amounts of liquid before going to bed or out in public. Avoid or reduce how much caffeine or alcohol you drink. Give yourself time when you urinate. Keep all follow-up visits as told by your health care provider. This is important. Contact a health care provider if: You have unexplained back pain. Your symptoms do not get better with treatment. You develop side effects from the medicine you are taking. Your urine becomes very dark or has a bad smell. Your lower abdomen becomes distended and you have trouble passing your urine. Get help right away if: You have a fever or chills. You suddenly cannot urinate. You feel lightheaded, or very dizzy, or you faint. There are large amounts of blood or clots in the urine. Your urinary problems become hard to manage. You develop moderate to severe low back or flank pain. The flank is the side of your body between the ribs and the hip. These symptoms may represent a serious problem that is an emergency. Do not wait to see if the symptoms will go away. Get medical help right away. Call your local emergency services (911 in the [place] Do not drive yourself to the hospital. Summary Benign prostatic hyperplasia (BPH) is an enlarged prostate that is caused by the normal aging process and not by cancer. An enlarged prostate can press on the urethra. This can make it hard to pass urine. This condition is part of a normal aging process and is more likely to develop in men over the age of 50 years. Get help right away if you suddenly cannot urinate. This information is not intended to replace advice given to you by your health care provider. Make sure you discuss any questions you have with your health care provider. Document Released: 05/01/2006 Document Revised: 03/26/2019 Document Reviewed: 06/05/2017 [employer] Patient Education 2020 [employer] Follow Up Care 04/05/2021 12:45:32 With:EMERSON SALMON, Clinton Hernandez, URL Address: [facility] [address], [place] [address] [phone] When:02/09/2022 Comments:6 months w PSA [facility] evaluation + Plan note Future Appointments Appointment Date:02/14/2022 11:45:00 AM Scheduled Provider:Clinton GOTTI MD Location:[facility] Appointment Type:URO Office Visit Diagnostic Tests Pending * PSA Total 08/09/21 [facility] evaluation + Plan note Future Appointments Appointment Date:09/05/2022 02:15:00 PM Scheduled Provider:Clinton GOTTI MD Location:[facility] Appointment Type:URO Office Visit [facility] evaluation + Plan note Future Appointments Appointment Date:06/05/2023 12:45:00 PM Scheduled Provider:Clinton GOTTI MD Location[facility] Appointment Type:URO Office Visit Diagnostic Tests Pending * PSA Total 11/28/22 [facility] evaluation + Plan note Future Appointments Appointment Date:02/19/2024 01:15:00 PM Scheduled Provider:Clinton GOTTI MD Location:[facility] Appointment Type:URO Office Visit Diagnostic Tests Pending * PSA Total 08/14/23 [facility] evaluation noteNo assessment information available [facility] Work Phone: evaluvzrrh note* Diagnosis Onset Date Resolution Status Anemia acute Personal history of colonic polyps acute [facility] Work Phone: evaluation noteNo InformationN[employer] Other Evaluation note* Diagnosis Non-ischemic cardiomyopathy (Multi)- Primary Other primary cardiomyopathies LV (left ventricular) mural thrombus Acute myocardial infarction, unspecified site, episode of care unspecified Diastolic dysfunction Unspecified heart disease Pulmonary sarcoidosis (Multi) Sarcoidosis Imbalance Abnormality of gait BMI 23.0-23.9, adult documented in this encounter [facility] Work Phone: History general Narrative - Reported* Type Description Date Medical History sarcoidosis Medical History Lung disease Medical History COPD Surgical History mediastinoscopy Hospitalization History when on coumadin he was bleeding out [place] [facility] [place] [facility] [employer] Other History general Narrative - Reported* Type Description Date Medical History sarcoidosis Medical History Lung disease Medical History COPD Surgical History mediastinoscopy Surgical History COLONOSCOPY Surgical History EGD Hospitalization History when on coumadin he was bleeding out Hospitalization History [place]athing [place] [facility] [place] [facility] [employer] Other History of Present illness NarrativePatient returns in follow-up of problems as noted. In the interim he is done relatively well. He denies any orthopnea or PND. He has some dyspnea with exertion but it is mild and tolerable and he notes that the addition of diuretic therapy at the last visit did improve his symptomatology somewhat. I pointed out to him that he has manifestations of pulmonary and cardiac sarcoidosis as the cause ofhis symptomatology and once again we asked about defibrillator implantation but he declines. Reviewof medical therapy appears to demonstrate that therapy is ideal and/or optimized and because of this I recommend no adjustments or changes in medical therapy and follow-up next year.[place] [address] DO Work Phone: Hospital course Narrative No data available for this section [facility] progress note No data available for this section [facility] reason for referral (narrative)* Consultation (Routine) - Authorized Specialty Diagnoses / Procedures Referred By Oleg t Referred To Contact Cardiology Diagnoses Non-ischemic cardiomyopathy (Multi) Procedures Follow Up In Cardiology Steven Galarza MD [facility], [address] [address] Shannon Santana MD [facility], [address] [address] Referral ID Status Reason Start Date Expiration Date V isits Requested Visits Authorized [id number] Authorized 10/13/2023 10/12/2024 1 1 [facility] Work Phone: Summary Purpose Family History No Family History Records FoundUnknown Family Member Name Dates Details S/P CABG (coronary artery by pass graft): Mother(V45.81, Z95.1) Status:Active Family history of diabetes m ellitus: Mother(V18.0, Z83.3) Status:Active Family history of valvular h eart disease: Brother(V17.49, Z82.49) Status:Active No pertinent family history: Father(V49.89, Z78.9) Status:Active Presence of stent in coronar y artery: Mother(V45.82, Z95.5) Status:Active Family history of multiple s clerosis: Other(V17.2, Z82.0) Status:Active Family history of arthritis: Other(V17.7, Z82.61) Status:Active Diabetes mellitus of other t ype with hypoglycemia, without long-term current use of insulin: Other Status:Active Heart problem: Other Status:Active Unknown Family Member Name Dates Details Heart problem: Other Status:Active Diabetes mellitus of other t ype with hypoglycemia, without long-term current use of insulin: Other Status:Active Family history of arthritis: Other(V17.7, Z82.61) Status:Active Family history of multiple s clerosis: Other(V17.2, Z82.0) Status:Active S/P CABG (coronary artery by pass graft): Mother(V45.81, Z95.1) Status:Active Family history of diabetes m ellitus: Mother(V18.0, Z83.3) Status:Active Family history of valvular h eart disease: Brother(V17.49, Z82.49) Status:Active No pertinent family history: Father(V49.89, Z78.9) Status:Active Presence of stent in coronar y artery: Mother(V45.82, Z95.5) Status:Active Unknown Family Member Name Dates Details Heart problem: Other Status:Active Diabetes mellitus of other t ype with hypoglycemia, without long-term current use of insulin: Other Status:Active Family history of arthritis: Other(V17.7, Z82.61) Status:Active Family history of multiple s clerosis: Other(V17.2, Z82.0) Status:Active S/P CABG (coronary artery by pass graft): Mother(V45.81, Z95.1) Status:Active Family history of diabetes m ellitus: Mother(V18.0, Z83.3) Status:Active Family history of valvular h eart disease: Brother(V17.49, Z82.49) Status:Active No pertinent family history: Father(V49.89, Z78.9) Status:Active Presence of stent in coronar y artery: Mother(V45.82, Z95.5) Status:Active Unknown Family Member Name Dates Details Heart problem: Other Status:Active Diabetes mellitus of other t ype with hypoglycemia, without long-term current use of insulin: Other Status:Active Family history of arthritis: Other(V17.7, Z82.61) Status:Active Family history of multiple s clerosis: Other(V17.2, Z82.0) Status:Active S/P CABG (coronary artery by pass graft): Mother(V45.81, Z95.1) Status:Active Family history of diabetes m ellitus: Mother(V18.0, Z83.3) Status:Active Family history of valvular h eart disease: Brother(V17.49, Z82.49) Status:Active No pertinent family history: Father(V49.89, Z78.9) Status:Active Presence of stent in coronar y artery: Mother(V45.82, Z95.5) Status:Active Relationship Condition Age at Onset Recorded Date/T dulce Not Specified Heart disease Unknown Unknown Family Member Name Dates Details Heart problem: Other Status:Active Diabetes mellitus of other t ype with hypoglycemia, without long-term current use of insulin: Other Status:Active Family history of arthritis: Other(V17.7, Z82.61) Status:Active Family history of multiple s clerosis: Other(V17.2, Z82.0) Status:Active S/P CABG (coronary artery by pass graft): Mother(V45.81, Z95.1) Status:Active Family history of diabetes m ellitus: Mother(V18.0, Z83.3) Status:Active Family history of valvular h eart disease: Brother(V17.49, Z82.49) Status:Active No pertinent family history: Father(V49.89, Z78.9) Status:Active Presence of stent in coronar y artery: Mother(V45.82, Z95.5) Status:Active Unknown Family Member Name Dates Details Heart problem: Other Status:Active Diabetes mellitus of other t ype with hypoglycemia, without long-term current use of insulin: Other Status:Active Family history of arthritis: Other(V17.7, Z82.61) Status:Active Family history of multiple s clerosis: Other(V17.2, Z82.0) Status:Active S/P CABG (coronary artery by pass graft): Mother(V45.81, Z95.1) Status:Active Family history of diabetes m ellitus: Mother(V18.0, Z83.3) Status:Active Family history of valvular h eart disease: Brother(V17.49, Z82.49) Status:Active No pertinent family history: Father(V49.89, Z78.9) Status:Active Presence of stent in coronar y artery: Mother(V45.82, Z95.5) Status:Active Unknown Family Member Name Dates Details Heart problem: Other Status:Active Diabetes mellitus of other t ype with hypoglycemia, without long-term current use of insulin: Other Status:Active Family history of arthritis: Other(V17.7, Z82.61) Status:Active Family history of multiple s clerosis: Other(V17.2, Z82.0) Status:Active S/P CABG (coronary artery by pass graft): Mother(V45.81, Z95.1) Status:Active Family history of diabetes m ellitus: Mother(V18.0, Z83.3) Status:Active Family history of valvular h eart disease: Brother(V17.49, Z82.49) Status:Active No pertinent family history: Father(V49.89, Z78.9) Status:Active Presence of stent in coronar y artery: Mother(V45.82, Z95.5) Status:Active Unknown Family Member Name Dates Details Heart problem: Other Status:Active Diabetes mellitus of other t ype with hypoglycemia, without long-term current use of insulin: Other Status:Active Family history of arthritis: Other(V17.7, Z82.61) Status:Active Family history of multiple s clerosis: Other(V17.2, Z82.0) Status:Active S/P CABG (coronary artery by pass graft): Mother(V45.81, Z95.1) Status:Active Family history of diabetes m ellitus: Mother(V18.0, Z83.3) Status:Active Family history of valvular h eart disease: Brother(V17.49, Z82.49) Status:Active No pertinent family history: Father(V49.89, Z78.9) Status:Active Presence of stent in coronar y artery: Mother(V45.82, Z95.5) Status:Active Advance Directives No Advanced Directives Records Found Advance Directive Response Recorded Date/ Time Advance Directives No April 9:38pm Chief Complaint MARY SMALL is being seen for a 6 month follow-up of. Chief Complaint and Reason for Visit Chief Complaint Anemia, Hx of Colon Polyps Chief Complaint Anemia, Hx of Colon Polyps Anemia, Hx of Colon Polyps Reason for Visit Anemia Personal history of colonic polyps Additional Source Comments (unrecognized sect ion and content) No Status Records FoundNo Status Records FoundNo Status Records FoundNo Status Records FoundNo Status Records FoundNo Status Records Found INFORMATION SOURCE (unrecogn ized section and content) DATE CREATED AUTHOR 12/30/2018 [facility] DATE CREATED AUTHOR AUTHOR'S ORGANIZ ATION 04/30/2021 [facility] DATE CREATED AUTHOR AUTHOR'S ORGANIZ ATION 11/01/2021 [facility] DATE CREATED AUTHOR AUTHOR'S ORGANIZ ATION 09/09/2022 [facility] DATE CREATED AUTHOR AUTHOR'S ORGANIZ ATION 08/15/2023 [facility] DATE CREATED AUTHOR AUTHOR'S ORGANIZ ATION 10/14/[address] [place] [address] [employer] Tower Operator Teams (unrecognized sec tion and content) Team Status: Inactive Member Role Status Dates Adam Wylie DO Primary Care Provider Active Gregg Hilliard DO Attending Provider Active Team Status: Active Member Role Status Dates Adam Wylie DO Primary Care Provider Active Central Supply Manager Relationship Specialty Start Date End Date Adam Wylie DO [address] [place] [address] PCP - General Internal Medicine 10/13/23 Goals (unrecognized section and content) Goals may be documented in a n alternate section REASON FOR VISIT (unrecogniz ed section and content) Reason Comments Follow-up 1 yr FOR RECORDS PERTAINING TO PATIENTS WHO ARE OR HAVE BEEN ENROLLED IN A CHEMICAL DEPENDENCY/SUBSTANCEABUSE PROGRAM, SOME INFORMATION MAY BE OMITTED. This clinical summary was aggregated from multiple sources. Caution should be exercised in using it in the provision of clinical care. This summary normalizes information from multiple sources, and as a consequence, information in this document may materially change the coding, format and clinical context of patient data. In addition, data may be omitted in some cases. CLINICAL DECISIONS SHOULD BE BASED ON THE PRIMARY CLINICAL RECORDS. [employer] provides no warranty or guarantee of the accuracy or completeness of information in this document.
--- NOTE | 2024-02-01 20:27 | ED.GENADUL1 ---
HPI HPI - General Adult General Chief complaint: Shortness of Breath/Dyspnea Stated complaint: SOB Time Seen by Provider: 02/01/24 20:12 Source: patient Mode of arrival: ambulance Limitations: no limitations History of Present Illness HPI narrative: 68-year-old male to the emergency department with chief complaint of shortness of breath. Patient reports over the last week he has had some increased shortness of breath. He denies any fever, sweats, chills, cough. He denies any chest pain. He denies any leg swelling. He has a history of sarcoidosis is on 2 L nasal cannula at baseline. He reports his shortness of breath is decreasing his exercise tolerance. He is on 5 mg of prednisone daily. 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 Related Data Allergies Allergy/AdvReac Type Severity Reaction Status Date / Time No Known Drug Allergies Allergy Verified 02/01/24 20:15 Opioid HPI Opioid Management Most Recent Opioid Data: No Data to Display Review of Systems ROS Status of ROS 10 or more systems reviewed and unremarkable except as noted in history and below PFSH PFSH Social History Little interest or pleasure in doing things: not at all Feeling down, depressed, or hopeless: not at all Exam Narrative Exam Narrative: VITALS: I have reviewed the triage vital signs. GENERAL: Chronically ill-appearing adult male in no distress NEURO: Alert and oriented. Moves all extremities. Face is symmetric and expressive. EYES: PERRL. No scleral icterus or conjunctival injection. No discharge. HENT: Normocephalic, atraumatic. Hearing is grossly intact. Nares grossly patent and without discharge. Mucous membranes moist. NECK: No JVD. Patient moves neck without restriction. CARDIO: Rhythm regular. Normal rate. No murmur, rub, or gallop. Pulses equal bilaterally in the upper and lower extremity. No lower extremity edema. PULM: Coarse lung sounds throughout. Mild conversational dyspnea. No increased work of breathing. GI/: Abdomen is soft and non-tender. Normoactive bowel sounds. EXTREMITIES: Symmetric muscle bulk. No joint swelling. No clubbing, cyanosis, or deformity. SKIN: Warm and dry. Normal turgor. No rash or lesions appreciated. PSYCH: Mood, affect, and interaction is appropriate to the setting. Constitutional Vital Signs, click to edit/add: Last Vital Signs Temp 97.9 F 02/01/24 20:11 Pulse 124 H 02/01/24 22:03 Resp 21 H 02/01/24 22:03 BP 123/94 H 02/01/24 22:14 Pulse Ox 100 02/01/24 22:03 O2 Del Method Nasal Cannula 02/01/24 21:17 O2 Flow Rate 2 02/01/24 21:17 Course Vital Signs Vital signs: Vital Signs Temperature 97.9 F 02/01/24 20:11 Pulse Rate 102 H 02/01/24 20:11 Respiratory Rate 22 H 02/01/24 20:11 Blood Pressure 160/110 H 02/01/24 20:11 Pulse Oximetry 98 02/01/24 20:11 Oxygen Delivery Method Nasal Cannula 02/01/24 20:11 Oxygen Delivery Flow Rate 2 02/01/24 20:11 Temperature 97.9 F 02/01/24 20:11 Pulse Rate 124 H 02/01/24 22:03 Respiratory Rate 21 H 02/01/24 22:03 Blood Pressure 123/94 H 02/01/24 22:14 Pulse Oximetry 100 02/01/24 22:03 Oxygen Delivery Method Nasal Cannula 02/01/24 21:17 Oxygen Delivery Flow Rate 2 02/01/24 21:17 Medical Decision Making MDM Narrative Medical decision making narrative: 68-year-old male to the emergency department with chief complaint of shortness of breath. He is tachycardic, stable on his baseline 2 L nasal cannula. Vitals otherwise stable. He does not look overtly volume overloaded on exam. Lung exam is unremarkable. He is mildly conversationally dyspneic. DuoNeb treatment is ordered. Basic labs, BNP, EKG, chest x-ray ordered. EKG does show atrial fibrillation with rapid ventricular response. Patient does not have a known history of atrial fibrillation. I did review his 10/13/2023 cardiology outpatient consult note. He saw Dr. Alvares in the office. 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 No mention of any atrial fibrillation in this note. CBC and chemistry reviewed. Mild hypomagnesemia. 2 g of mag ordered. Troponin normal. His proBNP is elevated. Checks x-ray is concerning for volume overloaded state, sarcoidosis. 20 of IV Lasix is given. He was started on Cardizem drip. Patient with complex medical history with his sarcoidosis and cardiomyopathy. He is under the care of both pulmonology and cardiology at [facility]. Discussed with the patient and he would like to be transferred to [facility] for further care. Case was discussed with Dr. Correa at [facility] who accepts the patient to her service. Patient and family agree with this plan. Medical Records Medical records reviewed: Yes I reviewed the patient's medical records Lab Data Labs: Lab Results 02/01/24 Range/Units 20:20 WBC 8.6 (4.0-11.0) 10^3/uL RBC 3.99 L (4.70-6.10) 10^6/uL Hgb 12.1 L (14.0-18.0) g/dL Hct 36.0 L (42.0-54.0) % MCV 90.2 (80.0-94.0) fL MCH 30.3 (25.9-34.0) pg MCHC 33.6 (29.9-35.2) g/dL RDW 13.6 (11.0-15.0) % Plt Count 249 (150-450) 10^3/uL MPV 9.9 (9.5-13.5) fL Seg Neuts % (Manual) 82.0 H (43.0-75.0) Lymphocytes % (Manual) 12.0 L (20.5-60.0) % Monocytes % (Manual) 5.0 (1.7-12.0) % Eosinophils % (Manual) 0.0 L (0.9-7.0) % Basophils % (Manual) 1.0 (0.2-2.0) % Neutrophils # (Manual) 7.05 H (1.4-6.5) 10^3/uL Lymphocytes # (Manual) 1.03 L (1.20-3.80) 10^3/uL Monocytes # (Manual) 0.43 (0.30-0.80) 10^3/uL Eosinophils # (Manual) 0.00 (0.00-0.70) 10^3/uL Basophils # (Manual) 0.08 (0.00-0.10) 10^3/uL Sodium 130 L (136-145) mmol/L Potassium 4.2 (3.5-5.1) mmol/L Chloride 96 L (98-107) mmol/L Carbon Dioxide 28.2 (21.0-32.0) mmol/L Anion Gap 10.0 BUN 15.0 (7.0-18.0) mg/dL Creatinine 0.77 (0.70-1.30) mg/dL Est GFR ( Amer) >60 (>=60) Est GFR (Non-Af Amer) >60 (>=60) BUN/Creatinine Ratio 19.5 Glucose 121 H (74-106) mg/dL Calcium 9.0 (8.5-10.1) mg/dL Magnesium 1.8 (1.8-2.4) mg/dL Troponin I High Sens 7.0 (4.0-76.1) pg/mL NT-Pro-B Natriuret Pep 2166.0 H* (<=900.0) pg/mL ECG Data Attestation: I personally reviewed and interpreted this ECG as follows: (Atrial fibrillation with rapid ventricular response at a rate of 113. No STEMI. Normal QTc at 415.) Critical Care Time Critical Care Time Critical Care Time: Yes Total Critical Care Time: 35 Attestation: Critical Care Procedure Note Authorized and Performed by: Wilson Davis DO Total critical care time: 35 min Due to a high probability of clinically significant, life threatening deterioration, the patient required my highest level of preparedness to intervene emergently and I personally spent this critical care time directly and personally managing the patient. This critical care time included obtaining a history; examining the patient; pulse oximetry; ordering and review of studies; arranging urgent treatment with development of a management plan; evaluation of patient's response to treatment; frequent reassessment; and, discussions with other providers. This critical care time was performed to assess and manage the high probability of imminent, life-threatening deterioration that could result in multi-organ failure. It was exclusive of separately billable procedures and treating other patients and teaching time. Please see MDM section and the rest of the note for further information on patient assessment and treatment. Discharge Plan Discharge Chief Complaint: Shortness of Breath/Dyspnea Clinical Impression: Pulmonary edema with congestive heart failure, Atrial fibrillation with rapid ventricular response, Sarcoidosis of lung, Cardiomyopathy, nonischemic, Acute and chronic respiratory failure with hypoxia Patient Disposition: General Acute Hospital Time of Disposition Decision: 22:22 [facility] Discharge location: Dr. Correa Condition: Fair Mode of Transportation: EMS Print Language: Swazi Referrals: Adam Wylie DO [Primary Care Provider] - 1 week
[2024-02-01] MEDS: METHYLPREDNISOLONE SOD SUCC PF 125 MG/2 ML VIAL IVP (20:30)
[2024-02-01 20:34] LABS: Hemoglobin 12.1 g/dL (14.0-18.0); Mean Corpuscular HGB Conc 33.6 g/dL (29.9-35.2); Mean Corpuscular Hemoglobin 30.3 pg (25.9-34.0); Mean Corpuscular Volume 90.2 fL (80.0-94.0); Mean Platelet Volume 9.9 fL (9.5-13.5); Platelet Count 249 10^3/uL (150-450); Red Blood Count 3.99 10^6/uL (4.70-6.10); Red Cell Distribution Width 13.6 % (11.0-15.0); White Blood Count 8.6 10^3/uL (4.0-11.0)
[2024-02-01] MEDS: IPRATROPIUM/ALBUTEROL SULFATE 3 ML AMPUL.NEB IH (20:40)
[2024-02-01 20:58] LABS: BUN Creatinine Ratio 19.5; Carbon Dioxide 28.2 mmol/L (21.0-32.0); Chloride 96 mmol/L (98-107); Estimated GFR (African America >60 (>=60); Estimated GFR (Non-African Ame >60 (>=60); Glucose 121 mg/dL (74-106); Magnesium 1.8 mg/dL (1.8-2.4); Potassium 4.2 mmol/L (3.5-5.1); Sodium 130 mmol/L (136-145)
[2024-02-01 21:51] LABS: Lymphocytes Absolute Manual 1.03 10^3/uL (1.20-3.80); Monocytes Absolute Manual 0.43 10^3/uL (0.30-0.80); Segmented Neut Absolute Manual 7.05 10^3/uL (1.4-6.5)
[2024-02-01 21:52] LABS: Basophils Abs Manual 0.08 10^3/uL (0.00-0.10)
[2024-02-01] MEDS: dilTIAZem HCL 125 MG in 0.9 % SODIUM CHLORIDE 100 ML IV (22:13)
[2024-02-01] MEDS: FUROSEMIDE 20 MG/2 ML VIAL IVP (22:14)
[2024-02-01] MEDS: MAGNESIUM SULFATE IN WATER 2 GM/50 ML PREMIX IV (22:19)
[2024-02-02] VITALS (24 sets, daily range): BP systolic 105–144; BP diastolic 77–112; PULSE 68–111; O2SAT 93–99
== END 2024-02-02 08:52 | disposition short-term general hospital (02) ==
PROVIDERS: Emergency Provider Student in an Organized Health Care Education/Training Program; PCP Internal Medicine
DX: I48.91 Unspecified atrial fibrillation (principal); E83.42 Hypomagnesemia; J96.21 Acute and chronic respiratory failure with hypoxia; D86.9 Sarcoidosis, unspecified; Z99.81 Dependence on supplemental oxygen; I42.8 Other cardiomyopathies; I50.1 Left ventricular failure, unspecified
CPT/HCPCS: 36415; 71046; 80048; 83735; 83880; 84484; 85007; 85027; 93005; 94640; 96365; 96366; 96368; 96375; 99285; J1940; J2919; J3475

== ENCOUNTER 2024-03-06 03:15 | Emergency (ER) | payer MEDICARE, SELFPAY ==
[2024-03-06 03:19] VITALS: BP 164/107; PULSE 74; O2SAT 98; BMI 23.1
--- NOTE | 2024-03-06 03:27 | ECG_ITS ---
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
--- NOTE | 2024-03-06 03:27 | XR_ITS ---
The [address] [address] Patient Name: MARY SMALL MRN: [id number] date: 1955 Sex: M Assigned Patient Location: ER Current Patient Location: ED.MAIN Accession/Order Number: [id number] Exam Date: 03/06/2024 04:10 Report Date: 03/06/2024 04:57 At the request of: JACKELINE SANCHEZ Procedure: XR chest 1V EXAM: XR chest 1V HISTORY: Chest pain COMPARISON: Chest radiographs dated 02/01/2024. TECHNIQUE: One view of the chest was obtained. FINDINGS: The cardiac silhouette is stable in size. There are multiple calcified mediastinal and bilateral hilar lymph nodes. There is no significant pneumothorax. There is stable bilateral pleural thickening. There is suspected scarring in the mid lungs and at the lung bases. There are possible small pleural effusions. No acute osseous abnormality is seen. XR/XR chest 1V IMPRESSION: 1. Stable appearance of the chest with suspected scarring in the mid lungs and at the lung bases. There are possible small pleural effusions. Electronically authenticated by: Grover BAUTISTA Date: 03/06/2024 04:57
--- NOTE | 2024-03-06 03:28 | ED_ITS ---
HPI HPI - General Adult General Chief complaint: Chest Pain Stated complaint: other Time Seen by Provider: 03/06/24 03:15 Source: patient and other Source information: EMS Mode of arrival: ambulance Limitations: no limitations History of Present Illness HPI narrative: 68-year-old male presents to the emergency department for pains in his chest. It has been moving around and he has had it for a few days. It started on the left lower chest and that moved to the right and then it went to the right top. No trauma or fever or productive cough. He does not complain of back pain. He has a history of sarcoidosis and is on oxygen at home. No history of CAD. He states the sarcoidosis has moved to his heart. He had cardioversion for atrial fibrillation 6 days ago. Related Data Home Medications ?Medication ?Instructions ?Recorded ?Confirmed albuterol sulfate 90 mcg/actuation 2 inh inhalation Q4H PRN shortness 02/02/24 02/02/24 aerosol inhaler of breath or wheezing carvedilol 12.5 mg tablet 12.5 mg PO Q12H 02/02/24 02/02/24 finasteride 5 mg tablet 5 mg PO DAILY 02/02/24 02/02/24 fluticasone 500 mcg-salmeterol 50 1 inh inhalation Q12H 02/02/24 02/02/24 mcg/dose blistr powdr for inhalation ipratropium 0.5 mg-albuterol 3 mg 3 ml inhalation QID 02/02/24 02/02/24 (2.5 mg base)/3 mL nebulization soln ipratropium bromide 0.02 % 2.5 ml inhalation Q6H 02/02/24 02/02/24 solution for inhalation pantoprazole 40 mg tablet,delayed 40 mg PO DAILY 02/02/24 02/02/24 release prednisone 5 mg tablet 5 mg PO DAILY 02/02/24 02/02/24 sacubitril 24 mg-valsartan 26 mg 1 tab PO BID 02/02/24 02/02/24 tablet (Entresto) tamsulosin 0.4 mg capsule 0.4 mg PO BID 02/02/24 02/02/24 Previous Rx's ?Medication ?Instructions ?Recorded acetaminophen 300 mg-codeine 30 mg 1 tab PO Q6H PRN pain 5 days #20 03/06/24 tablet tabs Allergies Allergy/AdvReac Type Severity Reaction Status Date / Time No Known Drug Allergies Allergy Verified 03/06/24 03:19 Opioid HPI Opioid Management Most Recent Opioid Data: Last Pain Scale 7 03/06/24 03:40 03/06/24 Review of Systems ROS Narrative A ten point review of systems is negative except as noted above. PFSH PFSH Social History Little interest or pleasure in doing things: not at all Feeling down, depressed, or hopeless: not at all Exam Narrative Exam Narrative: Nurses note and vital signs reviewed and patient is not hypoxic. General: The patient appears in no apparent distress. Skin: Warm, dry, no pallor noted. There is no rash noted. Head: Normocephalic, atraumatic Eye: Normal conjunctiva, no drainage Ears, Nose, Mouth, and Throat: oral mucosa is moist. Nares patent. Cardiovascular: Regular Rate and Rhythm Respiratory: Breath sounds are diminished but equal Back: non-tender GI: Soft and nontender Musculoskeletal: The patient has no evidence of calf tenderness, no pitting edema, symmetrical pulses noted bilaterally Neurological: A&O, normal speech Psychiatric: Cooperative Constitutional Vital Signs, click to edit/add: Last Vital Signs Temp 98.6 F 03/06/24 03:39 Pulse 74 03/06/24 03:19 Resp 22 H 03/06/24 03:19 BP 164/107 H 03/06/24 03:19 Pulse Ox 93 L 03/06/24 03:41 O2 Del Method Room Air 03/06/24 03:41 O2 Flow Rate 2 03/06/24 03:19 Course Vital Signs Vital signs: Vital Signs Pulse Rate 74 03/06/24 03:19 Respiratory Rate 22 H 03/06/24 03:19 Blood Pressure 164/107 H 03/06/24 03:19 Pulse Oximetry 98 03/06/24 03:19 Oxygen Delivery Method Nasal Cannula 03/06/24 03:19 Oxygen Delivery Flow Rate 2 03/06/24 03:19 Temperature 98.6 F 03/06/24 03:39 Pulse Rate 74 03/06/24 03:19 Respiratory Rate 22 H 03/06/24 03:19 Blood Pressure 164/107 H 03/06/24 03:19 Pulse Oximetry 93 L 03/06/24 03:41 Oxygen Delivery Method Room Air 03/06/24 03:41 Oxygen Delivery Flow Rate 2 03/06/24 03:19 Medical Decision Making MDM Narrative Medical decision making narrative: His workup is negative. D-dimer is normal as is the troponin. Chest x-ray shows chronic findings of sarcoidosis but no pneumonia or pneumothorax. At this point I do not suspect acute coronary syndrome or pulmonary embolism. He is feeling improved and has been sleeping here and he is able to be discharged home. Treatment diagnosis and follow-up were discussed with the patient. Heart score is 3. Differential Diagnosis Differential Diagnosis: Myocardial infarction, pneumothorax, PE, chest wall pain, pneumonia Lab Data Lab results reviewed: Yes I reviewed the patient's lab results Labs: Lab Results 03/06/24 03/06/24 Range/Units 03:30 03:35 WBC 8.9 (4.0-11.0) 10^3/uL RBC 3.93 L (4.70-6.10) 10^6/uL Hgb 11.7 L (14.0-18.0) g/dL Hct 35.6 L (42.0-54.0) % MCV 90.6 (80.0-94.0) fL MCH 29.8 (25.9-34.0) pg MCHC 32.9 (29.9-35.2) g/dL RDW 12.8 (11.0-15.0) % Plt Count 314 (150-450) 10^3/uL MPV 9.5 (9.5-13.5) fL Neut % (Auto) 75.6 H (43.0-75.0) % Lymph % (Auto) 8.9 L (20.5-60.0) % [place] % (Auto) 12.8 H (1.7-12.0) % Eos % (Auto) 1.7 (0.9-7.0) % Baso % (Auto) 0.3 (0.2-2.0) % Neut # (Auto) 6.7 H (1.4-6.5) 10^3/uL Lymph # (Auto) 0.8 L (1.2-3.8) 10^3/uL [place] # (Auto) 1.1 H (0.3-0.8) 10^3/uL Eos # (Auto) 0.2 (0.0-0.7) 10^3/uL Baso # (Auto) 0.0 (0.0-0.1) 10^3/uL Abs Immat Gran (auto) 0.06 H (0.00-0.03) 10^3/uL Imm/Tot Granulo (auto) 0.7 H (0.0-0.5) % D-Dimer 0.33 (<=0.59) mg/L FEU Sodium 135 L (136-145) mmol/L Potassium 4.4 (3.5-5.1) mmol/L Chloride 97 L (98-107) mmol/L Carbon Dioxide 29.5 (21.0-32.0) mmol/L Anion Gap 12.9 BUN 13.0 (7.0-18.0) mg/dL Creatinine 1.07 (0.70-1.30) mg/dL Est GFR ( Amer) >60 (>=60 mL/min/1.73m^2) Est GFR (Non-Af Amer) >60 (>=60 mL/min/1.73m^2) BUN/Creatinine Ratio 12.1 Glucose 99 (74-106) mg/dL Calcium 9.4 (8.5-10.1) mg/dL Troponin I High Sens 5.0 (4.0-76.1) pg/mL Influenza Type A Ag Negative Influenza Type B Ag Negative SARS-CoV-2 Ag (CV2AG) Negative (NEGATIVE) Imaging Data Chest x-ray: Radiologist's impression: ITS Impressions Chest X-Ray 03/06/24 03:27 IMPRESSION: 1. Stable appearance of the chest with suspected scarring in the mid lungs and at the lung bases. There are possible small pleural effusions. Electronically authenticated by: Grover BAUTISTA Date: 03/06/2024 04:57 ECG Data Attestation: I personally reviewed and interpreted this ECG as follows: (EKG on my interpretation shows normal sinus rhythm with a rate of 75 and a first-degree AV block. No ST segment elevation) Discharge Plan Discharge Chief Complaint: Chest Pain Clinical Impression: Chest wall pain Patient Disposition: Home, Self-Care Time of Disposition Decision: 05:11 Condition: Good Mode of Transportation: Private Vehicle Prescriptions / Home Meds: New acetaminophen-codeine 300-30 mg tablet 1 tab PO Q6H PRN (Reason: pain) 5 Days Qty: 20 0RF No Action albuterol sulfate 90 mcg/actuation HFA aerosol inhaler 2 inh INHALATION Q4H PRN (Reason: shortness of breath or wheezing) carvedilol 12.5 mg tablet 12.5 mg PO Q12H finasteride 5 mg tablet 5 mg PO DAILY fluticasone propion-salmeterol 500-50 mcg/dose blister with device 1 inh INHALATION Q12H ipratropium-albuterol 0.5 mg-3 mg(2.5 mg base)/3 mL solution for nebulization 3 ml INHALATION QID pantoprazole 40 mg tablet,delayed release (DR/EC) 40 mg PO DAILY prednisone 5 mg tablet 5 mg PO DAILY Entresto 24-26 mg tablet 1 tab PO BID tamsulosin 0.4 mg capsule 0.4 mg PO BID ipratropium bromide 0.02 % solution 2.5 ml inhalation Q6H Print Language: Cambodian Instructions: Chest Wall Pain (ED) Referrals: Adam Wylie DO [Primary Care Provider] - 1 week
[2024-03-06 03:39] VITALS: TEMP 37
[2024-03-06 03:41] VITALS: O2SAT 93
[2024-03-06 03:42] LABS: Basophils Percent Auto 0.3 % (0.2-2.0); Eosinophils Absolute Auto 0.2 10^3/uL (0.0-0.7); Eosinophils Percent Auto 1.7 % (0.9-7.0); Hematocrit 35.6 % (42.0-54.0); Hemoglobin 11.7 g/dL (14.0-18.0); Immature Granulocytes Abs Auto 0.06 10^3/uL (0.00-0.03); Immature Granulocytes Pct Auto 0.7 % (0.0-0.5); Lymphocytes Absolute Auto 0.8 10^3/uL (1.2-3.8); Lymphocytes Percent Auto 8.9 % (20.5-60.0); Mean Corpuscular HGB Conc 32.9 g/dL (29.9-35.2); Mean Corpuscular Hemoglobin 29.8 pg (25.9-34.0); Mean Corpuscular Volume 90.6 fL (80.0-94.0); Mean Platelet Volume 9.5 fL (9.5-13.5); Monocytes Absolute Auto 1.1 10^3/uL (0.3-0.8); Monocytes Percent Auto 12.8 % (1.7-12.0); Neutrophils Absolute Auto 6.7 10^3/uL (1.4-6.5); Neutrophils Percent Auto 75.6 % (43.0-75.0); Platelet Count 314 10^3/uL (150-450); Red Blood Count 3.93 10^6/uL (4.70-6.10); Red Cell Distribution Width 12.8 % (11.0-15.0); White Blood Count 8.9 10^3/uL (4.0-11.0)
[2024-03-06 04:00] LABS: Anion Gap 12.9; BUN Creatinine Ratio 12.1; Calcium 9.4 mg/dL (8.5-10.1); Carbon Dioxide 29.5 mmol/L (21.0-32.0); Chloride 97 mmol/L (98-107); D Dimer 0.33 mg/L FEU (<=0.59); Estimated GFR (African America >60 (>=60 mL/min/1.73m^2); Estimated GFR (Non-African Ame >60 (>=60 mL/min/1.73m^2); Glucose 99 mg/dL (74-106); Potassium 4.4 mmol/L (3.5-5.1); Sodium 135 mmol/L (136-145)
[2024-03-06 04:05] LABS: Influenza Virus A Antigen Negative; Influenza Virus B Antigen Negative
[2024-03-06 04:06] LABS: Internal Control Within Normal Limits; SARS-CoV-2 Ag NEGATIVE (NEGATIVE)
--- OUTSIDE RECORDS SUMMARY | 2024-03-06 04:51 | XMS_ITS | CCD ---
Author Organization [facility] CliniSyoh Care Team Providers Care 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 Name Role Phone Adam Del Valle Unavailable Unavailable Unavailable ADAM DEL VALLE Primary Care Physician DO Adam Del Valle Primary Care Provider DO Gregg Hilliard Attending Provider Nick Muniz Unavailable Gregg Hilliard Unavailable Adam Del Valle Unavailable IVON, DR REICH Admitting Unavailable IVON, DR REICH Primary Care Unavailable IVON, DR REICH Consulting Unavailable IVON, DR REICH Attending Unavailable BALL, DR REICH Primary Care Unavailable NORMAN ., DR TINOCO Consulting Unavailable NORMAN ., DR TINOCO Attending Unavailable NORMAN ., DR TINOCO Admitting Unavailable IVON, DR REICH Attending Unavailable BALL, DR REICH Admitting Unavailable BALL, DR REICH Primary Care Unavailable BALL, DR REICH Consulting Unavailable ZIEBER, DR CORINNE Hernandez Consulting Unavailable BALL, DR REICH Attending Unavailable BALL, DR REICH Admitting Unavailable BALL, DR REICH Primary Care Unavailable IVON, DR REICH Consulting Unavailable ANDREA, MATTHEW Consulting Unavailable ANDREA, MATTHEW Attending Unavailable MATTHEW MENDEZ Admitting Unavailable BALL, DR REICH Primary Care Unavailable HAY ., DR GARCIA Attending Unavailable HAY ., DR GARCIA Admitting Unavailable BALL, DR REICH Primary Care Unavailable GRECHNY ., JEANETTE NORMAN Consulting UnavailJAYDEN Clayton Consulting Unavailable ANGELINA ., DR GARCIA Attending Unavailable IVON, DR REICH Primary Care Unavailable HAY ., DR GARCIA Admitting Unavailable ANGELINA ., DR GARCIA Consulting Unavailable ANDREA, MATTHEW Consulting Unavailable DECLAN TRIPLETT Consulting Unavailable CHULA, DR GREGG Doe Consulting Unavailable JACKELINE SANCHEZ Attending Unavailable JACKELINE SANCHEZ Admitting Unavailable IVON, DR REICH Primary Care Unavailable JACKELINE SANCHEZ Consulting Unavailable Adam Del Valle DO Primary Care Provider DO Adam Del Valle Primary Care Provider DO Silvano Reed Admit Provider DO Silvano Reed Attending Provider [phone] JOANNE Tang Other Provider Unavailable DO Judith Rodriguez Other Provider MD Shannon Gonzalez Other Provider [phone] MD Steven Alvares Other Provider [phone] MD Chacho Burroughs Other Provider MD Casey Harper Other Provider CHARLEY Godoy Other Provider MD Cheli Wood Other Provider MD Damien Gonzalez Other Provider MD Kimani Wolfe Other Provider Bailee [facility] Karina Galvan Other Provider Clinton NORMAN Attending Unavailable Clinton NORMAN Attending Unavailable STEVEN ALVARES Attending Unavailable ADAM DEL VALLE Primary Care Unavailable SHANNON GONZALEZ Referring Unavailable ADAM DEL VALLE Primary Care Unavailable DO Sin Mabry Emergency Provider MD Altaf Jones Attending Provider [phone] Adam Del Valle Primary Care Unavailable Clif Reeder Admitting Unavailabl e Silvano Reed Attending Unavailabl e Clyde, Ramonita Consulting Unavailable Judith Rodriguez Consulting Unavailable Shannon Gonzalez Consulting Unavailable Steven Alvares Consulting Unavail able Chacho Burroughs Consulting Unavailable Casey Harper Consulting Unavailab [place] Consulting Unavailable Cheli Wood Consulting Unavailable Damien Gonzalez Consulting Unavailab Kimani Lebron Consulting Unavailable Karina Morocho Consulting Unavailable Adam Del Valle Primary Care Unavailable Nirali Reedopher Admitting Unavailabl e Clyde, Ramonita Consulting Unavailable Altaf Jones Attending Unavailable Judith Rodriguez Consulting Unavailable Shannon Gonzalez Consulting Unavailable Steven Alvares Consulting Unavail able Chacho Burroughs Consulting Unavailable Casey Harper Consulting Unavailab [place] Consulting Unavailable Cheli Wood Consulting Unavailable Damien Gonzalez Consulting Unavailab Kimani Lebron Consulting Unavailable Karina Morocho Consulting Unavailable Allergies Allergy Classification Reported Allergen(s) Allergy Type Date of Onset Reaction(s) Facility (1 source) patient allergy list reviewed by nurse or physicia Propensity to adverse reactions Comment:Done [employer] Other Medications Current Medications Medication Drug Class(es) Dates Sig (Normalized) Sig (Original) Advair Diskus 500-50 MCG/DOSE (5 sources) Start: 07-09-2018 take 1 puff(s) by inhalation twice daily Advair Diskus 500-50 MCG/DOSE 1 puff Inhalation Twice a day for 90 days Jun, Active [id number] 200 actuat albuterol 0.09 mg/actuat metered dose inhaler (20 sources) beta2-Adrenergic Agonist Start: 10-23-2023 take 2 puff(s) by mouth every six hours as needed Albuterol Sulfate Active 0 .ROUTE .COMPLEX 18 October 23, 2023 5:53pm INHALE 2 PUFFS BY MOUTH EVERY 6 HOURS NEEDED Start: 10-23-2023 End: 10-23-2023 Albuterol Sulfate (Ventolin Hfa) 90 mcg/actuation HFA aerosol inhaler Discontinued 2 PUFF INHALATION Q4H 6 90 October 23, 2023 3:23pm October 23, 2023 5:53pm Dispense 6 inhalers (2 per month) Start: 09-08-2023 take 2.5 mg by inhal ation four times daily Albuterol Sulfate Active 2.5 MG INHALATION Four times daily September 08, 2023 12:00am Start: 09-28-2022 take 2 puff(s) by in [...] Start: 08-02-2019 take 2 puff(s) by mo ut every four hours as needed for cough [...] solution (20 sources) Anticholinergic, beta2-Adrenergic Agonist Start: 01-30-2024 take 1 mL by inhalation four times daily Ipratropium-Albuterol Active 3 ML INHALATION Four times daily 360 January 30, 2024 11:26am Start: 01-29-2024 End: 01-30-2024 take 2.5 mL by inhalation four times daily Ipratropium-Albuterol Discontinued 0 .ROUTE .COMPLEX 360 January 29, 2024 12:51pm January 30, 2024 11:36am INHALE 2.5ML VIA NEBULIZER FOUR TIMES DAILY FOR 30 DAYS Start: 09-09-2019 take 3 mL by inhalat ion every six hours as needed ipratropium-albuteroL (Duo-Neb) 0.5-2.5 mg/3 mL nebulizer solution Inhale 3 mL every 6 hours if needed. 09/09/2019 Active Start: 09-09-2019 Ipratropium-Al buterol 0.5-2.5 (3) MG/3ML Inhalation Solution INHALE 1 (ONE) vial via NEBULIZER TWICE DAILY - FOUR TIMES DAILY Quantity: 360 Refills: 0 Ordered: 21-May-2020 DO Start : 09-Sep-2019 Active Start: 05-11-2018 End: 10-12-2023 Ipratropium-Albuterol Discon tinued 3 ML INHALATION every 6 to 8 hours May 11, 2018 1:00am October 12, 2023 2:02pm Start: 05-05-2018 take 3 mL by inhalat ion four times daily Ipratropium-Albuterol 0.5-2.5 (3) MG/3ML 3 ml Inhalation Four times a day DX COPD j44.9 for 30 days Apr, Active Start: 05-05-2018 take 3 mL by inhalat ion every six hours Ipratropium-Albuterol 0.5-2.5 (3) MG/3ML 3 ml Inhalation every 6 hrs Apr, Active Albuterol Sulfate (Ventolin Hfa) 90 mcg/actuation Hfa Aerosol Inhaler (5 sources) Start: 05-11-2018 take 1 puff(s) by inhalation every six hours Albuterol Sulfate (Ventolin Hfa) 90 mcg/actuation Hfa Aerosol Inhaler Active 2 PUFF INHALATION Q6H May 11, 2018 9:16pm Start: 05-11-2018 End: 10-23-2023 take 1 puff(s) by inhalation every six hours Albuterol Sulfate (Ventolin Hfa) 90 mcg/actuation Hfa Aerosol Inhaler Discontinued 2 PUFF INHALATION Q6H May 11, 2018 1:00am October 23, 2023 3:25pm amiodarone hydrochloride 200 mg oral tablet (2 sources) Antiarrhythmic Start: 03-01-2024 take 400 mg by mouth twice daily Amiodarone Active 400 MG PO Twice daily 28 March 01, 2024 12:00am Start: 03-01-2024 take 400 mg by mouth twice daily Amiodarone Active 200 MG PO Twice daily 60 March 01, 2024 12:00am start after you complete 400 mg twice daily for 7 days carvedilol 12.5 mg oral tablet (20 sources) alpha-Adrenergic Abisai, beta-Adrenergic Abisai Start: 10-12-2023 End: 02-14-2024 take 12.5 mg by mouth twice daily Carvedilol Active 12.5 MG PO Twice daily 60 February 14, 2024 2:50pm Start: 09-08-2023 End: 10-12-2023 take 6.25 mg by mouth twice daily Carvedilol Discontinued 6.25 MG PO Twice daily September 08, 2023 12:00am October 12, 2023 2:00pm Start: 02-10-2019 take 6.25 mg by mout h twice daily Carvedilol Active 6.25 MG PO Twice daily February 10, 2019 12:09am Start: 05-13-2018 End: 09-08-2023 take 12.5 mg by mouth twice daily Carvedilol Discontinued 12.5 MG PO Twice daily February 10, 2019 12:09am September 08, 2023 3:44pm Start: 05-11-2018 End: 05-13-2018 take 6.25 mg by mouth twice daily Carvedilol Discontinued 6.25 MG PO Twice daily May 11, 2018 1:00am May 13, 2018 2:03pm fluticasone propionate 0.05 mg/actuat metered dose nasal spray (20 sources) Corticosteroid Start: 09-08-2023 Fluticasone Pr opionate Active 1 SPRAY INTRANASAL Daily September 08, 2023 12:00am Start: 09-11-2019 fluticasone 0. 05 mg/inh Nasal [place] Nasal, Daily, Refill(s) 0 Start Date: 09/11/19 Status: Ordered Start: 05-11-2018 End: 02-10-2019 Fluticasone Propionate Disco ntinued 1 SPRAY INTRANASAL Daily May 11, 2018 1:00am February 10, 2019 12:13am Start: 05-05-2018 take 1 spray(s) nasa l route once daily Fluticasone Propionate 50 MCG/ACT 1 spray in each nostril Nasally Once a day for 21 days Apr, Active Start: 05-05-2018 take 1 spray(s) nasa l route once daily Fluticasone Propionate 50 MCG/ACT 1 spray in each nostril Nasally Once a day for 21 days Apr, Active Fluticasone Propion-Salmeterol (20 sources) Corticosteroid, beta2-Adrenergic Agonist Start: 02-02-2024 Fluticasone Propion-Salmeterol Active INHALATION February 02, 2024 12:00am Start: 09-15-2023 End: 10-23-2023 Fluticasone Propion-Salmeter ol (Wixela Inhub) 500-50 mcg/dose blister with device Discontinued 1 INH INHALATION Twice daily 180 90 September 15, 2023 4:51pm October 23, 2023 3:25pm Start: 09-15-2023 End: 09-15-2023 Fluticasone Propion-Salmeter ol (Wixela Inhub) 500-50 mcg/dose blister with device Discontinued 1 INH INHALATION Twice daily September 15, 2023 12:00am September 15, 2023 4:51pm Start: 08-14-2023 Wixela Inhub 5 00 mcg-50 mcg inhalation powder Refill(s) 0 Start [...] Twice daily May 13, 2018 3:28pm Start: 05-13-2018 End: 10-12-2023 Fluticasone Propion-Salmeter ol (Advair Hfa) 230-21 mcg/actuation HFA aerosol inhaler Discontinued 2 INH INHALATION Twice daily 8 May 13, 2018 1:00am October 12, 2023 2:01pm Start: 05-11-2018 End: 05-13-2018 Fluticasone Propion-Salmeter ol (Advair Diskus) 500-50 mcg/dose Blister With Device Discontinued 1 INH INHALATION Twice daily May 11, 2018 9:16pm May 13, 2018 2:03pm Start: 05-11-2018 End: 05-13-2018 Fluticasone Propion-Salmeter ol (Advair Diskus) 500-50 mcg/dose Blister With Device Discontinued 1 INH INHALATION Twice daily May 11, 2018 1:00am May 13, 2018 2:03pm fluticasone 0.05 mg/inh Nasal [place] (2 sources) Start: 09-11-2019 fluticasone 0.05 mg/inh Nasal [place] Nasal, Daily, Refill(s) 0 Start Date: 09/11/19 Status: Ordered Fluticasone-Umeclid in-Vilanter (4 sources) Start: 10-23-2023 Fluticasone-Umecli din-Vilanter (Trelegy Ellipta) 200-62.5-25 mcg blister with device Active 1 INH INHALATION Daily 180 October 23, 2023 12:00am Rinse after use latanoprost 0.05 mg/ml ophthalmic solution (4 sources) Prostaglandin Analog Start: 10-12-2023 take 1 drop(s) into the eye(s) once daily Latanoprost Active 1 DROPS OPHTHALMIC Daily October 12, 2023 12:00am multivitamin (Multiple Vitamins) tablet (2 sources) Start: 12-15-2016 take 1 tablet by mouth once daily multivitamin (Multiple Vitamins) tablet Take 1 tablet by mouth once daily. 12/15/2016 Active Oxygen (4 sources) Start: 10-23-2023 Oxygen Active 0 .Route October 23, 2023 12:00am 2 liters at HS and napping [facility] Start: 10-23-2023 Oxygen Active 0 .ROUTE October 23, 2023 12:00am 2 liters at HS and napping [facility] Oxygen 2 liters pm and prn day (9 sources) Oxygen 2 liters pm and prn day at night and during the day prn Active pantoprazole (12 sources) Proton Pump Inhibitor Start: take 1 tablet by mouth once daily at breakfast Pantoprazole Active 0 .ROUTE .COMPLEX 90 February 18, 2024 7:41pm TAKE 1 TABLET BY MOUTH ONCE DAILY ON AN EMPTY STOMACH 30 MINUTES prior to BREAKFAST Start: 09-08-2023 End: 02-18-2024 take 40 mg by mouth once daily Pantoprazole Discontinu ed 40 MG PO Daily September 08, 2023 12:00am February 18, 2024 7:41pm Start: 08-14-2023 Pantoprazole [address] Tab Refills(s) 0 Start Date: [...] Do not crush, chew, or split. Active rivaroxaban 20 mg oral tablet (4 sources) Factor Xa Inhibitor Start: 02-04-2024 take 1 tablet by mouth once daily at breakfast Rivaroxaban (Xarelto) 20 mg Tablet Active 20 MG PO Daily with breakfast February 04, 2024 12:00am Further refills per Cardiology with Dr. Gonzalez. sacubitril 24 mg / valsartan 26 mg oral tablet (20 sources) Angiotensin 2 Receptor Abisai Start: 05-11-2018 End: 10-12-2024 take 1 tablet by mouth twice daily Sacubitril-Valsar casanova (Entresto) 24-26 mg Tablet Active 1 TAB PO Twice daily May 11, 2018 1:00am Start: 08-04-2015 take 1 tablet by melissa th twice daily Entresto 49-51 MG Oral Tablet TAKE 1 TABLET BY MOUTH TWICE DAILY Quantity: 60 Refills: 0 Ordered: 29-Dec-2015 DO Start : 04-Aug-2015 Active ENTRESTO 24 mg/2 6 mg 1 orally twice a day Active tamsulosin hydrochloride 0.4 mg oral capsule (20 sources) alpha-Adrenergic Abisai Start: 09-08-2023 take 0.4 mg by mouth twice daily Tamsulosin Active 0.4 MG PO Twice daily September 08, 2023 12:00am Start: 10-25-2021 End: 10-25-2021 take 0.4 mg by mouth once daily Tamsulosin Discontinued 0.4 MG PO Daily October 25, 2021 12:00am October 25, 2021 2:10pm Start: 12-16-2019 End: 12-16-2021 take 0.4 mg by mouth twice daily Tamsulosin Active 0.4 MG PO Twice daily September 08, 2023 12:00am Thera Vitamin (9 sources) Thera Vitamin Ac tive Ventolin HFA 90 mcg/inh Aerosol-Adpt (1 source) Start: 08-14-2023 Ventolin HFA 9 0 mcg/inh Aerosol-Adpt Refill(s) 0 Start Date: 08/14/23 Status: Ordered Completed/Discontinued Medications Medication Drug Class(es) Dates Sig (Normalized) Sig (Original) amoxicillin 875 mg oral tablet (6 sources) Penicillin-class Antibacterial Start: 05-11-2018 End: 07-05-2018 take 875 mg by mouth twice daily Amoxicillin Discontinued 875 MG PO Twice daily May 11, 2018 1:00am July 05, 2018 2:03am amoxicillin 875 mg / clavulanate 125 mg oral tablet (6 sources) Penicillin-class Antibacterial Start: 02-11-2019 End: 10-25-2021 take 1 tablet by mouth every twelve hours Amoxicillin-Pot Clavulanate (Augmentin) 875-125 mg tablet Discontinued 1 TAB PO Q12H 20 February 11, 2019 12:00am October 25, 2021 2:09pm Eat yogurt or take probiotic while on antibiotic. cephalexin 500 mg oral capsule (6 sources) Cephalosporin Antibacterial Start: 07-06-2018 End: 02-10-2019 take 500 mg by mouth twice daily Cephalexin Discontinued 500 MG PO Twice daily 02 16July 06, 2018 1:00am February 10, 2019 12:10am finasteride 5 mg oral tablet (20 sources) 5-alpha Reductase Inhibitor Start: 02-17-2020 End: 09-11-2023 take 5 mg by mouth once daily Finasteride Discontinued 5 MG PO Daily October 25, 2021 12:00am September 11, 2023 3:39pm furosemide 20 mg oral tablet (20 sources) Loop Diuretic Start: 08-09-2021 End: 09-08-2023 take 20 mg by mouth once daily Furosemide Discontinued 20 MG PO Daily October 25, 2021 12:00am September 08, 2023 3:46pm Start: 05-13-2018 End: 02-10-2019 take 1 tablet by mouth once daily Furosemide (Lasix) 40 mg tablet Discontinued 40 MG PO Daily May 13, 2018 1:00am February 10, 2019 12:10am ipratropium bromide 0.2 mg/ml inhalation solution (18 sources) Anticholinergic Start: 10-12-2023 End: 01-29-2024 take 0.5 mg by inhalation four times daily Ipratropium [place] Discontinued 0.5 MG INHALATION Four times daily 300 January 29, 2024 8:52am January 29, 2024 12:51pm Start: 08-16-2022 take 1 [IU] by inhal ation four times daily Ipratropium [place] 0.02 % 1 unit dose Inhalation four times a day DX J44.9 COPD for 30 days Aug, Active Start: 08-16-2022 take 1 [IU] by inhal ation four times daily Ipratropium [place] 0.02 % 1 unit dose Inhalation four times a day DX J44.9 COPD for 30 days Aug, Active Start: 09-11-2019 ipratropium mi crogram, QID, Refills(s) 0 Start Date: 09/11/19 Status: Ordered methylPREDNISolone 4 mg oral tablet (6 sources) Corticosteroid Start: 05-13-2018 End: 07-06-2018 take 1 tablet by mouth once Methylprednisolone (Medrol (Man)) 4 mg tablets,dose pack Discontinued 0 PO per package directions May 13, 2018 1:00am July 06, 2018 1:34pm PO PER PKG DIR Multiple Vitamins Oral Tablet (8 sources) Start: 12-15-2016 Multiple Vitamins Oral Tablet Quantity: 0 Refills: 0 Ordered: 15-Dec-2016 DO Start : 15-Dec-2016 Active polysaccharide iron complex 150 mg oral capsule (6 sources) Start: 05-11-2018 End: 02-10-2019 Polysaccharide Iron Complex (Ferrex 150) 150 mg iron Capsule Discontinued 150 MG PO Daily May 11, 2018 1:00am February 10, 2019 12:11am predniSONE 5 mg oral tablet (20 sources) Start: 09-08-2023 End: 02-28-2024 take 5 mg by mouth once daily Prednisone Discontinued 5 MG PO Daily September 08, 2023 12:00am February 28, 2024 11:35pm Start: 02-10-2019 End: 09-08-2023 take 5 mg by mouth once daily Prednisone Discontinued 5 MG PO Daily February 10, 2019 12:15am September 08, 2023 3:45pm Start: 07-06-2018 End: 02-10-2019 Prednisone Discontinued 20 M G PO As Directed July 06, 2018 1:00am February 10, 2019 12:07am administer with food or milk. Take 40mg for 3 days,then 20 mg for 3 days, then 10 mg for 3 days, then continue 5 mg as you used to take Start: 11-18-2010 End: 07-06-2018 take 5 mg by mouth once daily Prednisone Discontinued 5 MG PO Daily 0 May 13, 2018 2:13pm July 06, 2018 1:44pm Continue after Medrol dose-man is finished tiotropium 0.018 mg inhalation powder (6 sources) Anticholinergic Start: 05-11-2018 End: 09-08-2023 take 1 capsule by inhalation once daily Tiotropium [place] (Spiriva With Handihaler) 18 mcg Capsule, W/Inhalation Device Discontinued 1 CAP INHALATION Daily May 11, 2018 1:00am September 08, 2023 3:46pm Problems Active Problems Problem Classification Problem Date Documented Da te Episodic/Chronic Abdominal hernia (9 sources) Hiatal hernia; Translations: [Diaphragmatic hernia without obstruction or gangrene] Episodic Administrative/social admission (3 sources) Drug indicated; Translations: [Long-term current use of steroids] Episodic Alcohol-related disorders (4 sources) Nondependent alcohol abuse; Translations: [Nondependent alcohol abuse, unspecified pattern of use] Onset: 5 02-29-2024 Chronic Allergic reactions (1 source) Allergic bronchopulmonary aspergillosis; Translations: [Allergic bronchopulmonary aspergillosis] Onset: 6 Chronic Cardiac dysrhythmias (20 sources) Nonsustained paroxysmal ventricular tachycardia; Translations: [Nonsustained paroxysmal ventricular tachycardia] Onset: 4 02-04-2024 Chronic Chronic obstructive pulmonary disease and bronchiectasis (20 sources) Chronic obstructive lung disease; Translations: [Chronic airway obstruction, not elsewhere classified] Onset: 2 Resolved: 2 09-11-2019 Chronic Congestive heart failure; nonhypertensive (20 sources) Chronic systolic heart failure; Translations: [Chronic systolic (congestive) heart failure] Onset: 4 02-10-2019 Chronic Deficiency and other anemia (2 sources) Chronic anemia; Translations: [Anemia in other chronic diseases classified elsewhere] 02-10-2019 Chronic Deficiency and other anemia (1 source) Anemia due to chronic blood loss; Translations: [Iron deficiency anemia secondary to blood loss (chronic)] Onset: 6 Chronic Deficiency and other anemia (8 sources) Anemia; Translations: [Anemia, unspecified] 10-26-2021 Episodic Deficiency and other anemia (2 sources) Anemia, unspecified; Translations: [Anemia, unspecified] Onset: 2 Resolved: 2 Episodic Deficiency and other anemia (9 sources) Iron deficiency anemia; Translations: [Iron deficiency anemia, unspecified] Episodic Diverticulosis and diverticulitis (9 sources) Diverticular disease; Translations: [Diverticulosis of intestine, part unspecified, without perforation or abscess without bleeding] Chronic Esophageal disorders (6 sources) Gastro-esophageal reflux disease with esophagitis; Translations: [Gastroesophageal reflux disease with esophagitis without hemorrhage] Onset: 2 Chronic Essential hypertension (20 sources) Hypertensive disorder; Translations: [Essential (primary) hypertension] Onset: 6 09-11-2019 Chronic Fluid and electrolyte disorders (15 sources) Hyponatremia; Translations: [Hypo-osmolality and hyponatremia] Onset: 6 02-10-2019 Episodic Gastrointestinal hemorrhage (5 sources) Rectal hemorrhage; Translations: [Hemorrhage of anus and rectum] 02-14-2024 Episodic Genitourinary symptoms and ill-defined conditions (4 sources) Urinary incontinence 02-17-2020 Chronic Genitourinary symptoms and ill-defined conditions (20 sources) Retention of urine; Translations: [Retention of urine, unspecified] Onset: 7 Episodic Gout and other crystal arthropathies (5 sources) Gout; Translations: [Primary gout] Onset: 6 09-11-2019 Chronic Hemorrhoids (11 sources) Internal hemorrhoids; Translations: [Other hemorrhoids] 02-10-2019 Episodic Hyperplasia of prostate (20 sources) Benign prostatic hypertrophy with outflow obstruction; Translations: [Benign prostatic hyperplasia with lower urinary tract symptoms] Onset: 7 Chronic Immunity disorders (20 sources) Pulmonary sarcoidosis; Translations: [Sarcoidosis] Onset: 6 Resolved: 2 05-11-2018 Chronic Immunizations and screening for infectious disease (1 source) Vaccination given; Translations: [Encounter for immunization] Episodic Malaise and fatigue (3 sources) Other fatigue; Translations: [Fatigue] Onset: 7 Episodic Mood disorders (4 sources) Depressive disorder 09-11-2019 Chronic Mycoses (9 sources) Aspergillosis; Translations: [Aspergillosis, unspecified] Episodic Osteoarthritis (1 source) Localized, primary osteoarthritis of the pelvic region and thigh; Translations: [Unilateral primary osteoarthritis, right hip] Chronic Other aftercare (2 sources) Other correction (current) drug therapy; Translations: [OTH 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 CURRENT DRUG THERAPY] Onset: 3 Episodic Other aftercare (1 source) Long-term current use of drug therapy; Translations: [Other correction (current) drug therapy] Episodic Other aftercare (4 sources) Drug therapy finding; Translations: [exterminator helper termite (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] 02-04-2024 Episodic Other aftercare (6 sources) [facility] (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; Translations: [Long-term (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] Onset: 4 02-04-2024 Episodic Other and ill-defined heart disease (11 sources) Mural thrombus of left ventricle; Translations: [Acute myocardial infarction of unspecified site, episode of care unspecified] Onset: 4 10-13-2023 Chronic Other and ill-defined heart disease (11 sources) Diastolic dysfunction; Translations: [Heart disease, unspecified] Onset: 4 10-13-2023 Chronic Other and ill-defined heart disease (2 sources) Intracardiac thrombosis, not elsewhere classified; Translations: [Intracardiac thrombosis, not elsewhere classified] Onset: 4 Chronic Other and ill-defined heart disease (2 sources) Other ill-defined heart diseases; Translations: [Other ill-defined heart diseases] Onset: 4 Chronic Other and unspecified benign neoplasm (10 sources) Cerebellopontine angle tumor; Translations: [Benign neoplasm of cranial nerves] Onset: 4 07-26-2023 Chronic Other and unspecified benign neoplasm (7 sources) Benign neoplasm of cranial nerves; Translations: [Benign neoplasm of cranial nerves] Onset: 2 Chronic Other and unspecified benign neoplasm (7 sources) Acoustic neuroma; Translations: [Benign neoplasm of cranial nerves] 09-09-2023 Chronic Other and unspecified benign neoplasm (13 sources) History of polyp of colon; Translations: [Personal history of colonic polyps] 10-26-2021 Episodic Other and unspecified benign neoplasm (3 sources) Personal history of colonic polyps; Translations: [Personal history of colonic polyps] Onset: 2 Resolved: 2 Episodic Other and unspecified benign neoplasm (9 sources) Benign neoplasm of cecum; Translations: [Benign neoplasm of cecum] Episodic Other and unspecified benign neoplasm (1 source) Benign neoplasm of sigmoid colon; Translations: [Benign neoplasm of sigmoid colon] Episodic Other diseases of kidney and ureters (1 source) Urinary tract obstruction; Translations: [Other obstructive and reflux uropathy] Onset: 2 Episodic Other ear and sense organ disorders (10 sources) Asymmetrical sensorineural hearing loss; Translations: [Sensorineural hearing loss, asymmetrical] Onset: 4 07-26-2023 Chronic Other ear and sense organ disorders (10 sources) Bilateral hearing loss; Translations: [Mixed hearing loss, bilateral] Onset: 4 07-26-2023 Chronic Other endocrine disorders (4 sources) Syndrome of inappropriate secretion of antidiuretic hormone; Translations: [SYNDROME INAPPROPRIATE SEC ADH] Onset: 2 Chronic Other endocrine disorders (1 source) Syndrome of inappropriate vasopressin secretion; Translations: [Syndrome of inappropriate secretion of antidiuretic hormone] Chronic Other endocrine disorders (1 source) Hypercortisolism; 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] Onset: 6 Chronic Other infections; including parasitic (1 source) H/O: infectious disease; Translations: [Personal history of other infectious and parasitic diseases] Episodic Other infections; including parasitic (5 sources) Personal history of other infectious and parasitic diseases; 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] Onset: 4 10-23-2023 Episodic Other lower respiratory disease (9 sources) Post-inflammatory pulmonary fibrosis; Translations: [Other interstitial pulmonary diseases with fibrosis in diseases classified elsewhere] Chronic Other lower respiratory disease (1 source) Other interstitial pulmonary diseases with fibrosis in diseases classified elsewhere Onset: 2 Resolved: 2 Chronic Other lower respiratory disease (1 source) Parietoalveolar pneumopathy; Translations: [Interstitial pulmonary disease, unspecified] Chronic Other lower respiratory disease (1 source) Diffuse interstitial pulmonary fibrosis; Translations: [Other interstitial pulmonary diseases with fibrosis in diseases classified elsewhere] Onset: 9 Chronic Other lower respiratory disease (8 sources) Disorder of lung; Translations: [Respiratory abnormality, unspecified] Episodic Other lower respiratory disease (4 sources) Shortness of breath; Translations: [Shortness of breath] Onset: 2 02-28-2024 Episodic Other lower respiratory disease (1 source) Hypoxemia; Translations: [Hypoxemia] Episodic Other lower respiratory disease (3 sources) Dyspnea; Translations: [Other forms of dyspnea] 02-28-2024 Episodic Other non-traumatic joint disorders (1 source) Pain in right hip joint; Translations: [Pain in right hip] Episodic Other screening for suspected conditions (not mental disorders or infectious disease) (15 sources) Raised prostate specific antigen; Translations: [Elevated prostate specific antigen [PSA]] Onset: 2 Episodic Lenka-; endo-; and myocarditis; cardiomyopathy (except that caused by tuberculosis or sexually transmitted disease) (20 sources) Cardiomyopathy; Translations: [Other primary cardiomyopathies] Onset: 2 02-10-2019 Chronic Pneumonia (except that caused by tuberculosis or sexually transmitted disease) (4 sources) Pneumonia, unspecified organism; Translations: [Infective pneumonia] Onset: 5 Episodic Residual codes; unclassified (8 sources) History finding; Translations: [Other specified conditions influencing health status] Episodic Residual codes; unclassified (8 sources) History of clinical finding in subject; Translations: [Personal history of other specified diseases] Episodic Residual codes; unclassified (8 sources) History of heartburn; Translations: [Personal history of other diseases of digestive system] Episodic Residual codes; unclassified (3 sources) Localized edema; Translations: [Edema] Onset: 3 03-01-2024 Episodic Residual codes; unclassified (1 source) Edema of lower extremity; Translations: [Localized edema] 02-29-2024 Episodic Respiratory failure; insufficiency; arrest (adult) (8 sources) Chronic hypoxemic respiratory failure; Translations: [Chronic respiratory failure with hypoxia] Onset: 4 02-10-2019 Chronic Respiratory failure; insufficiency; arrest (adult) [...] sources) COUGH, UNSPECIFIED; Translations: [COUGH, UNSPECIFIED] Onset: 2 Unclassified (1 source) CONTACT W/AND (SUSP) EXPOS COVID-19; Translations: [CONTACT W/AND (SUSP) EXPOS COVID-19] Onset: 2 Unclassified (1 source) Long-term current use of steroid; Translations: [Long-term (current) use of steroids] Onset: 8 Unclassified (1 source) Other certain sequelae of myocardial infarction, not elsewhere classified; Translations: [Other certain sequelae of myocardial infarction, not elsewhere classified] Onset: 5 Unclassified (1 source) Other persistent atrial fibrillation; Translations: [Other persistent atrial fibrillation] Onset: 4 Unclassified (1 source) Other ventricular tachycardia; Translations: [Other ventricular tachycardia] Onset: 4 Urinary tract infections (2 sources) Urinary tract infectious disease; Translations: [Urinary tract infection, site not specified] Onset: Episodic Past or Other Problems Problem Classification Problem Date Documented Date Episodic/Chronic Acute posthemorrhagic anemia (1 source) Acute posthemorrhagic anemia; Translations: [Acute posthemorrhagic anemia] Onset: 04-22-2015 Episodic Conditions associated with dizziness or vertigo (12 sources) Vertigo; Translations: [Dizziness and giddiness] Onset: 07-26-2023 02-10-2019 Episodic Esophageal disorders (3 sources) Esophageal disorders; [...] Translations: [Hemoptysis] Resolved: 05-27-2020 02-10-2019 Episodic Other nervous system disorders (11 sources) Impairment of balance; Translations: [Abnormality of gait] Onset: 07-26-2023 10-13-2023 Episodic Other nervous system disorders (2 sources) Other abnormalities of gait and mobility; Translations: [Other abnormalities of gait and mobility] Onset: 07-26-2023 Episodic Other upper respiratory infections (1 source) Acute upper respiratory infection, unspecified; Translations: [ACUTE UP RESPIRATORY INFECTION UNS] Onset: 04-21-2022 Episodic Residual codes; unclassified (11 sources) Body mass index 20-24 - normal; Translations: [Body Mass Index between 19-24, adult] Onset: 10-13-2023 10-13-2023 Episodic Residual codes; unclassified (1 source) Edema; Translations: [Edema] Onset: 06-24-2016 Episodic Residual codes; unclassified (2 sources) Body mass index (BMI) 23.0-23.9, adult; Translations: [Body mass index (BMI) 23.0-23.9, adult] Onset: 10-13-2023 Episodic Substance-related disorders (4 sources) Nicotine dependence, other tobacco product, uncomplicated; Translations: [Nicotine dependence, cigarettes, uncomplicated] Onset: 11-22-2021 Resolved: 10-13-2023 10-13-2023 Chronic Unclassified (1 source) COUGH, UNSPECIFIED; Translations: [COUGH, UNSPECIFIED] Onset: 04-19-2022 Unclassified (1 source) Never smoked tobacco; Translations: [Never a smoker] Unclassified (2 sources) Onset: 10-13-2023 10-13-2023 Results Test Name Value Interpretation Reference Range Facility Carbon dioxide, total [Moles /volume] in Serum or PlasmaOrdered By: Shannon Gonzalez on 03-01-2024 CO2 [Moles/Vol] 30.2 mmol/L Normal 21.0-31.0 [facility] Comment on above: Performed By: #### L YTES ####[place] [id number] [address] Chloride [Moles/volume] in S christine or PlasmaOrdered By: Shannon Gonzalez on 03-01-2024 Chloride [Moles/Vol] 92 mmol/L Low 98-107 [facility] Comment on above: Performed By: #### L YTES ####[facility] ECG 12 lead ECGon 03-01-2024 ECG 12 lead ECG [facility] [place] [address] Electrocardiograph Report Signed Patient: Mayr Mcadams MR#: [id number] : 1955 Acct:[id number] Age/Sex: 68 / M ADM Date: 02/28/24 Loc: Room: [address] [place] [address] Type: ADM IN Attending Dr: Altaf Jones MD Ordering Provider: Shannon Gonzalez MD, [facility] Date of Service: 03/01/24 ECG/ECG 12 lead ECG: Pre-cardioversion rhythm assessment Copies to: Test Reason : Blood Pressure : */* mmHG Vent. Rate : 101 BPM Atrial Rate : * BPM P-R Int : * ms QRS Dur : 124 ms QT Int : 336 ms P-R-T Axes : * 102 -31 degrees QTcB Int : 435 ms Atrial fibrillation with rapid ventricular response Rightward axis Nonspecific intraventricular conduction delay Abnormal ECG When compared with ECG of 28-Feb-2024 21:42, No significant change was found Confirmed by SHANNON GONZALEZ MD, FACC ([id number]) on 03/01/2024 12:59:19 PM Referred By: Electronically Signed By: SHANNON GONZALEZ MD, FACC Transcribed By: MUS Signed By Shannon Gonzalez MD, FACC 03/01/24 1259 Normal [facility] ECG post procedureon 024 ECG post procedure [facility] [place] [address] Electrocardiograph Report Signed Patient: Mary Mcadams MR#: [id number] : 1955 Acct:[id number] Age/Sex: 68 / M ADM Date: 02/28/24 Loc: Room: [address] [place] [address] Type: ADM IN Attending Dr: Altaf Jones MD Ordering Provider: Altaf Jones MD Date of Service: 03/01/24/ ECG/ECG post procedure: afib Copies to: Test Reason : Blood Pressure : 106/72 mmHG Vent. Rate : 78 BPM Atrial Rate : 78 BPM P-R Int : 212 ms QRS Dur : 128 ms QT Int : 404 ms P-R-T Axes : 51 -14 61 degrees QTcB Int : 460 ms Sinus rhythm with 1st degree AV block with premature supraventricular complexes Nonspecific intraventricular block Abnormal ECG When compared with ECG of 01-Mar-2024 07:22, (Unconfirmed) Sinus rhythm has replaced Atrial fibrillation Confirmed by SHANNON GONZALEZ MD, FACC ([id number]) on 03/01/2024 12:59:54 PM Referred By: Electronically Signed By: SHANNON GONZALEZ MD, FACC Transcribed By: MUS Signed By Shannon Gonzalez MD, FACC 03/01/24 1259 Normal [facility] Potassium [Moles/volume] in Serum or PlasmaOrdered By: Shannon Gonzalez on 03-01-2024 Potassium [Moles/Vol] 3.9 mmol/L Normal 3.5-5.1 [facility] Comment on above: Hemolysis is present at a level that could interfere with the result.Contact lab if redraw is required Result Comment: Hemo lysis is present at a level that could interfere with the result. Contact lab if redraw is required Performed By: #### L YTES ####[address] Serum or plasma anion gap de terminationOrdered By: Shannon Gonzalez on 03-01-2024 Anion gap [Moles/Vol] 11.7 mmol/L Normal 6.0-15.0 [facility] Comment on above: Result Comment: PERF ORMED BY: [place] [address] PATHOLOGIST [employer] RECYCLING TECHNICIAN BETHANY ALBRIGHT M.D. Performed By: #### L YTES ####[address] Sodium [Moles/volume] in Ser um or PlasmaOrdered By: Shannon Gonzalez on 03-01-2024 Sodium [Moles/Vol] 130 mmol/L Low 136-145 [facility] Comment on above: Performed By: #### L YTES ####[address] Basic Metabolic Panelon 02-12 Anion gap [Moles/Vol] 10.6 mmol/L Normal 6.0-15.0 e [facility] Comment on above: Performed By: #### B MP, MG #### [facility] [address] Chloride [Moles/Vol] 94 mmol/L Low 98-107 [facility] Comment on above: Performed By: #### B MP, MG #### [facility] 1[address] [place] [address] [place] CO2 [Moles/Vol] 29.2 mmol/L Normal 21.0-31.0 [facility] Comment on above: Performed By: #### B MP, MG #### [place] [address] [place] Creatinine Clr Calc Pharmacy 95.65 Normal [facility] Comment on above: Performed By: #### B MP, MG #### [place] [address] [place] GFR/1.73 sq M.predicted MDRD (S/P/Bld) [Vol rate/Area] mL/min/{1.73_m2} Normal [facility] Comment on above: Performed By: #### B MP, MG #### [address] Potassium [Moles/Vol] 3.8 mmol/L Normal 3.5-5.1 [facility] Comment on above: Performed By: #### B MP, MG #### [address] Sodium [Moles/Vol] 130 mmol/L Low 136-145 [facility] Comment on above: Performed By: #### B MP, MG #### [address] Calcium [Mass/volume] in Ser um or PlasmaOrdered By: Maricruz Godoy on 02-29-2024 Calcium [Mass/Vol] 8.6 mg/dL Normal 8.6-10.3 [facility] Comment on above: Performed By: #### B MP, MG #### [address] Creatinine [Mass/volume] in Serum or PlasmaOrdered By: Maricruz Godoy on 02-29-2024 Creatinine [Mass/Vol] 0.69 mg/dL Low 0.70-1.30 [facility] Comment on above: Performed By: #### B MP, MG #### [address] ECH echo limited [facility] echo limited [facility] Main [place] [address] [place] [address] Echocardiogram Signed Patient: Mary Mcadams MR#: [id number] : 1955 Acct:[id number] Age/Sex: 68 / M ADM Date: 02/28/24 Loc: Room: [address] [place] [address] Type: ADM IN Attending Dr: Altaf Jones MD Ordering Provider: Maricruz Godoy APRN Date of Service: 02/29/24 [facility] echo limited: chf Copies to: Shannon Gonzalez MD, [facility] Maricruz Godoy APRN Ordering Physician: Maricruz Godoy Height: 72 in Weight: 178 lb Performed By: LOLA Kirkland BSA: 2.0 m2 BP: 98/69 mmHg HR: 79 Reason For Study: chf History: A-Fib., Sarcoidosis, COPD, Aspergilloma, Respiratory Failure, Alcohol Dependence, CHF, HTN, Non Ischemic Cardiomyopathy, EF 50-55% Interpretation Summary The left ventricular size and thickness are normal. Ejection Fraction = 45-50%. The patient was in atrial fibrillation through out the study. Mild aortic root dilatation. The aortic root is 4.0 cm Compared to prior echo report on 02/03/2024, changes are noted. The left ventricle ejection fraction has slightly decreased Procedure/Quality: A two-dimensional transthoracic echocardiogram with color flow and Doppler was performed in limited views only. The study was technically good in quality. Compared to prior echo report on 02/03/2024, changes are noted. The left ventricle ejection fraction has slightly decreased. Left Ventricle: The left ventricular size and thickness are normal. Ejection Fraction = 45-50%. Left Atrium: The left atrium appears normal in size. The atrial septum appears normal. Right Atrium: The right atrium appears normal in size. Right Ventricle: The right ventricular size, thickness and function are normal. Aortic Valve: The aortic valve is normal in structure. Mitral Valve: The mitral valve is mildly sclerotic. Tricuspid Valve: The tricuspid valve is normal in structure. Pulmonic Valve: The pulmonic valve is not well seen, but is grossly normal. Arteries: Mild aortic root dilatation. The aortic root is 4.0 cm. Pericardium/Pleura: No pericardial effusion seen. There is no pleural effusion. IVC/Hepatic Veins: The IVC is normal in size with an inspiratory collapse of greater then 50%, suggesting normal right atrial pressure. Miscellaneous: The patient was in atrial fibrillation through out the study. No thrombus, vegetation or mass is seen. Measurements with Normals IVSd: 0.88 cm (0.7-1.1 cm)LVIDd: 5.4 cm (3.7-5.4 cm) LVPWd: 1.1 cm (0.7-1.1 cm)LVIDs: 4.1 cm (2.3-3.6 cm) LA dimension: 3.5 cm (2.3-4.0 cm)Ao root diam: 4.0 cm(2.0-3.6 cm) asc Aorta Diam: 4.0 cm(2.1-3.4cm) Doppler with Normals RVSP(TR): 29.1 mmHg(18-35mmHg) MMode/2D Measurements Calculations RVDd: 3.1 cm FS: 24.0 % Ao root area: LVLd ap4: 7.4 cm EDV(Teich): 12.3 cm2 EDV(MOD-sp4): 141.2 ml 65.1 ml ESV(Teich): LVLs ap4: 7.3 cm 74.4 ml ESV(MOD-sp4): EF(Teich): 47.3 % 36.4 ml EF(MOD-sp4): 44.1 % __ SV(MOD-sp4): 28.7 ml Doppler Measurements Calculations TV max P.0 mmHg TR max christina: 245.7 cm/sec TR max P.1 mmHg RAP systole: 5.0 mmHg Transcribed By: RILEY Performed At: 02/29/24 1220 Signed By: Shannon Gonzalez MD, FACC 02/29/24 3418 Normal [facility] Glucose [Mass/volume] in Ser um or PlasmaOrdered By: Maricruz Godoy on 02-29-2024 Glucose [Mass/Vol] 86 mg/dL Normal 70-100 [facility] Comment on above: ADA recommended refe rence rangeRandom Glucose Reference Range is dependent on time and content of last meal. Glucose of more than 200 mg/dL in a nonstressed, ambulatory subject supports the diagnosis of Diabetes Mellitus. Result Comment: Coy om Glucose Reference Range is dependent on time and content of last meal. Glucose of more than 200 mg/dL in a nonstressed, ambulatory subject supports the diagnosis of Diabetes Mellitus. ADA recommended reference range Performed By: #### B MP, MG #### [facility] [address] [place] [address] Magnesium [Mass/volume] in S christine or PlasmaOrdered By: Maricruz Godoy on 02-29-2024 Magnesium [Mass/Vol] 1.5 mg/dL Low 1.9-2.7 [facility] Comment on above: Result Comment: PERF ORMED BY: [place] [address] PATHOLOGIST [employer] RECYCLING TECHNICIAN BETHANY ALBRIGHT M.D. Performed By: #### B MP, MG #### [address] No Panel InformationOrdered By: Maricruz Godoy on 02-29-2024 Estimated GFR (CKD-EPI) > 60.0 mL/Min [facility] Creatinine Clearance (Chem 95.65 [facility] Urea nitrogen [Mass/volume] in Serum or PlasmaOrdered By: Maricruz Godoy on 02-29-2024 Urea nitrogen [Mass/Vol] 11 mg/dL Normal 7-25 [facility] Comment on above: Performed By: #### B MP, MG #### [place] [address] [place] XR chest 2V*on 02-29-2024 XR chest 2V* [facility] Main [place] [address] [place] [address] XRay Report Signed Patient: Mary Mcadams MR#: [id number] : 1955 Acct:[id number] Age/Sex: 68 / M ADM Date: 02/28/24 Loc: 3T Room: 4F2779-0 Type: ADM IN Attending Dr: Altaf Jones MD Copies to: MD Silvano Carballo DO Ordering Provider: Silvano Reed DO Date of Service: 02/29/24 XR/XR chest 2V*: dyspnea XR chest 2V* 02/29/2024 12:15 AM SIGNS AND SYMPTOMS: dyspnea PROTOCOL: Frontal and lateral radiographs of the chest COMPARISON: 02/28/2024 FINDINGS: The trachea is midline. Calcified mediastinal and hilar lymph nodes are redemonstrated bilaterally with chronic opacities and scarring. Pleural thickening versus pleural effusions are redemonstrated bilaterally. The heart and mediastinal structures are within normal limits. The bony thorax is intact. XR/XR chest 2V* IMPRESSION: Unchanged chest. Impression dictated by: Juliocesar Varela M.D.02/29/2024 8:30 AM Dictation Location: [place] [address] Transcribed By: [facility] 02/29/24829 Dictated By: Juliocesar Varela II, MD 02/29/24828 Signed By: 02/29/24829 Normal [facility] Activated partial thrombopla stin time (aPTT) in platelet poor plasma by coagulation aOrdered By: Sin Mabry on 02-28-2024 aPTT Coag (PPP) [Time] 42.4 s High 25.1-36.5 [facility] Comment on above: A hematocrit value g reater than 55% may lead to inaccurate results in coagulation testing. Patients having hematocrit values >55% require a special collection tube for coagulation studies. Please contact the laboratory at [phone] for redraw instructions. Alanine aminotransferase [En zymatic activity/volume] in Serum or PlasmaOrdered By: Sin Mabry on 02-28-2024 ALT [Catalytic activity/Vol] 10 U/L Normal 7-52 [facility] Comment on above: Performed By: #### P TT, HEPATIC, CBC, BNP, BMP, PT, CK, HS TROP ####[facility] [address] [place] [address] [place] Albumin [Mass/volume] in Ser um or Plasma by Bromocresol green (BCG) dye binding methoOrdered By: Sin Mabry on 02-28-2024 Albumin BCG dye [Mass/Vol] 3.7 g/dL 3.5-5.7 [facility] Alkaline phosphatase [Enzyma tic activity/volume] in Serum or PlasmaOrdered By: Sin Mabry on 02-28-2024 ALP [Catalytic activity/Vol] 71 U/L Normal 34-104 [facility] Comment on above: Performed By: #### P TT, HEPATIC, CBC, BNP, BMP, PT, CK, HS TROP ####[place] [id number] [address] Aspartate aminotransferase [ Enzymatic activity/volume] in Serum or PlasmaOrdered By: Sin Mabry on 02-28-2024 AST [Catalytic activity/Vol] 14 U/L Normal 13-39 [facility] Comment on above: Performed By: #### P TT, HEPATIC, CBC, BNP, BMP, PT, CK, HS TROP ####[place] [address] [place] [id number] [facility] Automated basophil %Ordered By: Sin Mabry on 02-28-2024 Basophils/100 WBC (Bld) 0.4 % Normal . [facility] Comment on above: Performed By: #### P TT, HEPATIC, CBC, BNP, BMP, PT, CK, HS TROP ####[place] [id number] [facility] Automated basophil countOrde red By: Sin Mabry on 02-28-2024 Basophils (Bld) [#/Vol] 0.0 10*3/uL Normal 0.0-0.2 [facility] Comment on above: Result Comment: PERF ORMED BY: [facility] [address] [place] [address] PATHOLOGIST [employer] RECYCLING TECHNICIAN BETHANY ALBRIGHT M.D. Performed By: #### P TT, HEPATIC, CBC, BNP, BMP, PT, CK, HS TROP ####[place] [id number] [facility] Automated blood monocyte cou ntOrdered By: Sin Mabry on 02-28-2024 Monocytes (Bld) [#/Vol] 0.6 10*3/uL Normal 0.0-0.8 [facility] Comment on above: Performed By: #### P TT, HEPATIC, CBC, BNP, BMP, PT, CK, HS TROP ####[address] Automated eosinophil %Ordere d By: Sin Mabry on 02-28-2024 Eosinophils/100 WBC (Bld) 0.9 % Normal . [facility] Comment on above: Performed By: #### P TT, HEPATIC, CBC, BNP, BMP, PT, CK, HS TROP ####[address] Automated eosinophil countOr dered By: Sin Mabry on 02-28-2024 Eosinophils (Bld) [#/Vol] 0.1 10*3/uL Normal 0.0-0.45 [facility] Comment on above: Performed By: #### P TT, HEPATIC, CBC, BNP, BMP, PT, CK, HS TROP ####[address] Automated monocyte %Ordered By: Sin Mabry on 02-28-2024 Monocytes/100 WBC (Bld) 10.0 % Normal . [facility] Comment on above: Performed By: #### P TT, HEPATIC, CBC, BNP, BMP, PT, CK, HS TROP ####[address] Automated neutrophil %Ordere d By: Sin Mabry on 02-28-2024 Neutrophils/100 WBC (Bld) 78.8 % Normal . [facility] Comment on above: Performed By: #### P TT, HEPATIC, CBC, BNP, BMP, PT, CK, HS TROP ####[address] BNP ser/plasOrdered By: Justino Mabry on 02-28-2024 Natriuretic peptide B (Bld) [Mass/Vol] 614.0 pg/mL High 5-100 [facility] Comment on above: Result Comment: PERF ORMED BY: [facility] [address] [place] [id number] PATHOLOGIST [employer] RECYCLING TECHNICIAN BETHANY ALBRIGHT M.D. Performed By: #### P TT, HEPATIC, CBC, BNP, BMP, PT, CK, HS TROP ####[place] [id number] [facility] Basic Metabolic Panelon 02-12 Creatinine Clr Calc Pharmacy 95.65 Normal [facility] Comment on above: Result Comment: PERF ORMED BY: [facility] [address] [facility] [id number] PATHOLOGIST [employer] RECYCLING TECHNICIAN BETHANY ALBRIGHT M.D. Performed By: #### P TT, HEPATIC, CBC, BNP, BMP, PT, CK, HS TROP ####[place] [id number] [facility] GFR/1.73 sq M.predicted MDRD (S/P/Bld) [Vol rate/Area] mL/min/{1.73_m2} Normal [facility] Comment on above: Performed By: #### P TT, HEPATIC, CBC, BNP, BMP, PT, CK, HS TROP ####[place] [id number] [facility] Bilirubin.direct [Mass/volum e] in Serum or PlasmaOrdered By: Sin Mabry on 02-28-2024 Bilirubin.direct [Mass/Vol] 0.20 mg/dL High 0.03-0.18 [facility] Bilirubin.total [Mass/volume ] in Serum or PlasmaOrdered By: Sin Mabry on 02-28-2024 Bilirubin [Mass/Vol] 0.5 mg/dL Normal 0.3-1.0 [facility] Comment on above: Performed By: #### P TT, HEPATIC, CBC, BNP, BMP, PT, CK, HS TROP ####[place] [id number] [facility] Calcium [Mass/volume] in Ser um or PlasmaOrdered By: Sin Mabry on 02-28-2024 Calcium [Mass/Vol] 9.0 mg/dL Normal 8.6-10.3 [facility] Comment on above: Performed By: #### P TT, HEPATIC, CBC, BNP, BMP, PT, CK, HS TROP ####[address] Carbon dioxide, total [Moles /volume] in Serum or PlasmaOrdered By: Sin Mabry on 02-28-2024 CO2 [Moles/Vol] 25.1 mmol/L Normal 21.0-31.0 [facility] Comment on above: Performed By: #### P TT, HEPATIC, CBC, BNP, BMP, PT, CK, HS TROP ####[address] Chloride [Moles/volume] in S christine or PlasmaOrdered By: Sin Mabry on 02-28-2024 Chloride [Moles/Vol] 96 mmol/L Low 98-107 [facility] Comment on above: Performed By: #### P TT, HEPATIC, CBC, BNP, BMP, PT, CK, HS TROP ####[address] Complete Blood Count Auto Di ffon 02-28-2024 Mean Corpuscular HGB Conc 33.7 g/dL Normal 32.5-35.6 [facility] Comment on above: Performed By: #### P TT, HEPATIC, CBC, BNP, BMP, PT, CK, HS TROP ####[address] Monocytes/100 WBC (Bld) 19.63 % Normal 0.00-20.00 [facility] Comment on above: Performed By: #### P TT, HEPATIC, CBC, BNP, BMP, PT, CK, HS TROP ####[address] NRBC% 0.1 /100{WBC} Normal 0-0.5 [facility] Comment on above: Performed By: #### P TT, HEPATIC, CBC, BNP, BMP, PT, CK, HS TROP ####[address] Creatine kinase [Enzymatic a ctivity/volume] in Serum or PlasmaOrdered By: Sin Mabry on 02-28-2024 CK [Catalytic activity/Vol] 26 U/L Low 30-223 [facility] Comment on above: Performed By: #### P TT, HEPATIC, CBC, BNP, BMP, PT, CK, HS TROP ####[facility] [id number] [place] [id number] [facility] Creatinine [Mass/volume] in Serum or PlasmaOrdered By: Sin Mabry on 02-28-2024 Creatinine [Mass/Vol] 0.77 mg/dL Normal 0.70-1.30 [facility] Comment on above: Performed By: #### P TT, HEPATIC, CBC, BNP, BMP, PT, CK, HS TROP ####[facility] [id number] [place] [id number] [facility] ECG 12 lead ECGon 02-28-2024 ECG 12 lead ECG [facility] [address] [place] [address] [place] [address] Electrocardiograph Report Signed Patient: Mary Mcadams MR#: [id number] : 1955 Acct:[id number] Age/Sex: 68 / M ADM Date: 02/28/24 Loc: Room: [address] [place] [address] Type: ADM IN Attending Dr: Silvano Reed DO Ordering Provider: Sin Mabry DO Date of Service: 02/28/24 ECG/ECG 12 lead ECG: Shortness of Breath/Dyspnea Copies to: Test Reason : Blood Pressure : */* mmHG Vent. Rate : 110 BPM Atrial Rate : 136 BPM P-R Int : * ms QRS Dur : 124 ms QT Int : 338 ms P-R-T Axes : * -17 83 degrees QTcB Int : 457 ms Atrial fibrillation with rapid ventricular response with premature ventricular or aberrantly conducted complexes Left ventricular hypertrophy with QRS widening Abnormal ECG When compared with ECG of 03-Feb-2024 08:22, Vent. rate has increased by 43 bpm T wave inversion now evident in Lateral leads Confirmed by Sin Mabry DO ([id number]) on 02/28/2024 11:47:55 PM Referred By: Electronically Signed By: Sin Mabry DO Transcribed By: MUS Signed By Sin Mabry DO 4 [phone] Normal [facility] Erythrocyte distribution wid th [Ratio] by Automated countOrdered By: Sin Mabry on 02-28-2024 Erythrocyte distribution width (RBC) [Ratio] 13.8 % Normal 12.0-14.8 [facility] Comment on above: Performed By: #### P TT, HEPATIC, CBC, BNP, BMP, PT, CK, HS TROP ####[place] [id number] [place] [id number] [facility] Erythrocytes [#/volume] in B lood by Automated countOrdered By: Sin Mabry on 02-28-2024 RBC (Bld) [#/Vol] 4.09 10*6/uL Normal 3.90-5.60 [facility] Comment on above: Performed By: #### P TT, HEPATIC, CBC, BNP, BMP, PT, CK, HS TROP ####[place] [id number] [place] [id number] [facility] Glucose [Mass/volume] in Ser um or PlasmaOrdered By: Sin Mabry on 02-28-2024 Glucose [Mass/Vol] 133 mg/dL High 70-100 [facility] Comment on above: ADA recommended refe rence rangeRandom Glucose Reference Range is dependent on time and content of last meal. Glucose of more than 200 mg/dL in a nonstressed, ambulatory subject supports the diagnosis of Diabetes Mellitus. Result Comment: Coy om Glucose Reference Range is dependent on time and content of last meal. Glucose of more than 200 mg/dL in a nonstressed, ambulatory subject supports the diagnosis of Diabetes Mellitus. ADA recommended reference range Performed By: #### P TT, HEPATIC, CBC, BNP, BMP, PT, CK, HS TROP ####[place] [id number] [place] [id number] [facility] Hematocrit [Volume Fraction] of Blood by Automated countOrdered By: Sin Mabry on 02-28-2024 Hematocrit (Bld) [Volume fraction] 36.7 % Low 38.8-50.0 [facility] Comment on above: Performed By: #### P TT, HEPATIC, CBC, BNP, BMP, PT, CK, HS TROP ####[address] Hemoglobin [Mass/volume] in BloodOrdered By: Sin Mabry on 02-28-2024 Hemoglobin (Bld) [Mass/Vol] 12.3 g/dL Low 13.0-17.0 [facility] Comment on above: Performed By: #### P TT, HEPATIC, CBC, BNP, BMP, PT, CK, HS TROP ####[address] Hepatic Panelon 02-28-2024 Albumin [Mass/Vol] 3.7 g/dL Normal 3.5-5.7 [facility] Comment on above: Performed By: #### P TT, HEPATIC, CBC, BNP, BMP, PT, CK, HS TROP ####[address] Bilirubin,Indirect 0.3 mg/dL Normal [facility] Comment on above: Performed By: #### P TT, HEPATIC, CBC, BNP, BMP, PT, CK, HS TROP ####[address] Bilirubin.indirect [Mass/Vol] 0.20 mg/dL High 0.03-0.18 [facility] Comment on above: Performed By: #### P TT, HEPATIC, CBC, BNP, BMP, PT, CK, HS TROP ####[address] INR in Platelet poor plasma by Coagulation assayOrdered By: Sin Mabry on 02-28-2024 INR Coag (PPP) [Relative time] 2.0 {INR} Normal [facility] Comment on above: INR Therapeutic Rang e A) Pre- and Peroperative OAT started two weeks before surgery. NOT HIP SURGERY: 1.5 - 2.5 HIP SURGERY: 2 - 3B) Primary and secondary prevention of venous THROMBOSIS: 2 - 3C) Active venous thrombosis, pulmonary embolismand prevention of recurrent venous thrombosis: 2 - 3D) Prevention of arterial thromboembolismincluding patients with mechanical heart valves: 3 - 4.5 Result Comment: INR Therapeutic Range A) Pre- and Peroperative OAT started two weeks before surgery. NOT HIP SURGERY: 1.5 - 2.5 HIP SURGERY: 2 - 3 B) Primary and secondary prevention of venous THROMBOSIS: 2 - 3 C) Active venous thrombosis, pulmonary embolism and prevention of recurrent venous thrombosis: 2 - 3 D) Prevention of arterial thromboembolism including patients with mechanical heart valves: 3 - 4.5 Performed By: #### P TT, HEPATIC, CBC, BNP, BMP, PT, CK, HS TROP ####[facility] Leukocytes [#/volume] correc junior for nucleated erythrocytes in Blood by Automated counOrdered By: Sin Mabry on 02-28-2024 WBC corrected for nucl RBC Auto (Bld) [#/Vol] 5.9 10*3/uL 4.1-10.5 [facility] Leukocytes [#/volume] in Blo od by Automated countOrdered By: Sin Mabry on 02-28-2024 WBC (Bld) [#/Vol] 5.9 10*3/uL Normal 4.1-10.5 [facility] Comment on above: Performed By: #### P TT, HEPATIC, CBC, BNP, BMP, PT, CK, HS TROP ####[address] Lymphocytes [#/volume] in Bl ood by Automated countOrdered By: Sin Mabry on 02-28-2024 Lymphocytes (Bld) [#/Vol] 0.6 10*3/uL Low 1.00-4.8 [facility] Comment on above: Performed By: #### P TT, HEPATIC, CBC, BNP, BMP, PT, CK, HS TROP ####[address] Lymphocytes/100 leukocytes i n Blood by Automated countOrdered By: Sin Mabry on 02-28-2024 Lymphocytes/100 WBC (Bld) 9.9 % Normal . [facility] Comment on above: Performed By: #### P TT, HEPATIC, CBC, BNP, BMP, PT, CK, HS TROP ####[place] [address] [address] MCH [Entitic mass] by Automa junior countOrdered By: Sin Mabry on 02-28-2024 MCH (RBC) [Entitic mass] 30.2 pg Normal 27.5-35.2 [facility] Comment on above: Performed By: #### P TT, HEPATIC, CBC, BNP, BMP, PT, CK, HS TROP ####[address] MCHC Auto (RBC) [Mass/Vol]Or dered By: Sin Mabry on 02-28-2024 MCHC (RBC) [Mass/Vol] 33.7 g/dL 32.5-35.6 [facility] MCV [Entitic volume] by Auto mated countOrdered By: Sin Mabry on 02-28-2024 MCV (RBC) [Entitic vol] 89.6 fL Normal 83.5-101 [facility] Comment on above: Performed By: #### P TT, HEPATIC, CBC, BNP, BMP, PT, CK, HS TROP ####[address] Monocyte distribution width [Entitic volume] in Blood by AutomatedOrdered By: Sin Mabry on 02-28-2024 Monocyte distribution width Auto (Bld) [Entitic vol] 19.63 % 0.00-20.00 [facility] Neutrophils [#/volume] in Bl ood by Automated countOrdered By: Sin Mabry on 02-28-2024 Neutrophils (Bld) [#/Vol] 4.6 10*3/uL Normal 1.8-7.7 [facility] Comment on above: Performed By: #### P TT, HEPATIC, CBC, BNP, BMP, PT, CK, HS TROP ####[address] No Panel InformationOrdered By: Sin Mabry on 02-28-2024 Estimated GFR (CKD-EPI) > 60.0 mL/Min [facility] Creatinine Clearance (Chem 95.65 [facility] Nucleated erythrocytes [Pres ence] in Blood by Automated countOrdered By: Sin Mabry on 02-28-2024 Nucleated RBC Auto Ql (Bld) 0.1 /100{WBC} 0-0.5 [facility] Partial Thromboplastin Timeo n 02-28-2024 aPTT Coag (Bld) [Time] 42.4 s High 25.1-36.5 [facility] Comment on above: Result Comment: A he matocrit value greater than 55% may lead to inaccurate results in coagulation testing. Patients having hematocrit values >55% require a special collection tube for coagulation studies. Please contact the laboratory at [phone] for redraw instructions. PERFORMED BY: [facility] [address] [place] [id number] PATHOLOGIST [employer] RECYCLING TECHNICIAN BETHANY ALBRIGHT M.D. Performed By: #### P TT, HEPATIC, CBC, BNP, BMP, PT, CK, HS TROP ####[place] [id number] [facility] Platelet mean volume [Entiti c volume] in Blood by Automated countOrdered By: Sin Mabry on 02-28-2024 Platelet mean volume (Bld) [Entitic vol] 8.4 fL Normal 6.6-10.1 [facility] Comment on above: Performed By: #### P TT, HEPATIC, CBC, BNP, BMP, PT, CK, HS TROP ####[place] [id number] [facility] Platelets [#/volume] in Bloo d by Automated countOrdered By: Sin Mabry on 02-28-2024 Platelets (Bld) [#/Vol] 238 10*3/uL Normal 150-450 [facility] Comment on above: Performed By: #### P TT, HEPATIC, CBC, BNP, BMP, PT, CK, HS TROP ####[place] [id number] [facility] Potassium [Moles/volume] in Serum or PlasmaOrdered By: Sin Mabry on 02-28-2024 Potassium [Moles/Vol] 3.9 mmol/L Normal 3.5-5.1 [facility] Comment on above: Performed By: #### P TT, HEPATIC, CBC, BNP, BMP, PT, CK, HS TROP ####[place] [id number] Protein [Mass/volume] in Ser um or PlasmaOrdered By: Sin Mabry on 02-28-2024 Protein [Mass/Vol] 6.9 g/dL Normal 6.4-8.9 [facility] Comment on above: Performed By: #### P TT, HEPATIC, CBC, BNP, BMP, PT, CK, HS TROP ####[place] [id number] [place] [id number] [facility] Prothrombin time (PT)Ordered By: Sin Mabry on 02-28-2024 PT Coag (PPP) [Time] 22.4 s High 9.0-12.9 [facility] Comment on above: A hematocrit value g reater than 55% may lead to inaccurate results in coagulation testing. Patients having hematocrit values >55% require a special collection tube for coagulation studies. Please contact the laboratory at [phone] for redraw instructions. Result Comment: A he matocrit value greater than 55% may lead to inaccurate results in coagulation testing. Patients having hematocrit values >55% require a special collection tube for coagulation studies. Please contact the laboratory at [phone] for redraw instructions. Performed By: #### P TT, HEPATIC, CBC, BNP, BMP, PT, CK, HS TROP ####[place] [id number] [place] [id number] [facility] Serum globulin measurement b y calculation (mass/volume)Ordered By: Sin Mabry on 02-28-2024 Globulin (S) [Mass/Vol] 3.2 g/dL [facility] Comment on above: Performed By: #### P TT, HEPATIC, CBC, BNP, BMP, PT, CK, HS TROP ####[address] Serum or plasma albumin/glob ulin mass ratioOrdered By: Sin Mabry on 02-28-2024 Albumin/Globulin [Mass ratio] 1.2 {ratio} [facility] Comment on above: Performed By: #### P TT, HEPATIC, CBC, BNP, BMP, PT, CK, HS TROP ####[address] Serum or plasma anion gap de terminationOrdered By: Sin Mabry on 02-28-2024 Anion gap [Moles/Vol] 10.8 mmol/L Normal 6.0-15.0 [facility] Comment on above: Performed By: #### P TT, HEPATIC, CBC, BNP, BMP, PT, CK, HS TROP ####[place] [id number] Serum or plasma non-glucuron idated bilirubin measurement (mass/volume)Ordered By: Sin Mabry on 02-28-2024 Bilirubin.indirect [Mass/Vol] 0.3 mg/dL [facility] Sodium [Moles/volume] in Ser um or PlasmaOrdered By: Sin Mabry on 02-28-2024 Sodium [Moles/Vol] 128 mmol/L Low 136-145 [facility] Comment on above: Performed By: #### P TT, HEPATIC, CBC, BNP, BMP, PT, CK, HS TROP ####[address] Troponin I High Sensitivityo n 02-28-2024 Troponin I High Sensitivity 4.9 pg/mL Normal 0.0-20.0 [facility] Comment on above: Result Comment: PERF ORMED BY: [facility] [address] [place] [address] PATHOLOGIST [employer] RECYCLING TECHNICIAN BETHANY ALBRIGHT M.D. Performed By: #### P TT, HEPATIC, CBC, BNP, BMP, PT, CK, HS TROP ####[address] Troponin I.cardiac [Mass/vol ume] in Serum or Plasma by Detection limit <= 0.01 ng/Ordered By: Sin Mabry on 02-28-2024 Troponin I.cardiac DL <= 0.01 ng/mL [Mass/Vol] 4.9 pg/mL 0.0-20.0 [facility] Urea nitrogen [Mass/volume] in Serum or PlasmaOrdered By: Sin Mabry on 02-28-2024 Urea nitrogen [Mass/Vol] 11 mg/dL Normal 7-25 [facility] Comment on above: Performed By: #### P TT, HEPATIC, CBC, BNP, BMP, PT, CK, HS TROP ####[facility] [id number] [place] [address] [facility] XR chest 1V portableon 02-27 XR chest 1V portable [facility] [address] [place] [address] [place] [address] XRay Report Signed Patient: Mary Mcadams MR#: [id number] : 1955 Acct:[id number] Age/Sex: 68 / M ADM Date: 02/28/24 Loc: Room: [address] [place] [address] Type: ADM IN Attending Dr: Altaf Jones MD Copies to: MD Sin Carballo DO Ordering Provider: Sin Mabry DO Date of Service: 02/28/24 XR/XR chest 1V portable: Shortness of Breath/Dyspnea SINGLE VIEW CHEST CLINICAL HISTORY: Shortness of breath. COMPARISON: None FINDINGS: Cardiomegaly. Evidence old granulomatous disease. Bilateral pleural-parenchymal changes. No pneumothorax or free air. XR/XR chest 1V portable IMPRESSION: CARDIOMEGALY WITH BILATERAL PLEURAL-PARENCHYMAL CHANGES. FOLLOW-UP IS RECOMMENDED TO ENSURE RESOLUTION. Impression dictated by: Hasmukh Clifford Jr., D.O.02/28/2024 10:44 PM Dictation Location: [place] [address] Transcribed By: [facility] 02/28/242243 Dictated By: Hasmukh Clifford Jr, DO 02/28/242242 Signed By: 02/28/242243 Normal [facility] Automated basophil %Ordered By: Rubin Billy on 02-04-2024 Basophils/100 WBC (Bld) 0.2 % Normal . [facility] Comment on above: Performed By: #### B MP, CBC ####[facility] [id number] [place] [address] [facility] Automated basophil countOrde red By: Rubin Billy on 02-04-2024 Basophils (Bld) [#/Vol] 0.0 10*3/uL Normal 0.0-0.2 [facility] Comment on above: Result Comment: PERF ORMED BY: [facility] [address] [place] [address] PATHOLOGIST [employer] RECYCLING TECHNICIAN BETHANY ALBRIGHT M.D. Performed By: #### B MP, CBC ####[facility] [address] Automated blood monocyte cou ntOrdered By: Rubin Billy on 02-04-2024 Monocytes (Bld) [#/Vol] 1.0 10*3/uL High 0.0-0.8 [facility] Comment on above: Performed By: #### B MP, CBC ####[facility] [id number] [place] [address] Automated eosinophil %Ordere d By: Rubin Billy on 02-04-2024 Eosinophils/100 WBC (Bld) 1.2 % Normal . [facility] Comment on above: Performed By: #### B MP, CBC ####[address] Automated eosinophil countOr dered By: Rubin Billy on 02-04-2024 Eosinophils (Bld) [#/Vol] 0.1 10*3/uL Normal 0.0-0.45 [facility] Comment on above: Performed By: #### B MP, CBC ####[address] Automated monocyte %Ordered By: Rubin Billy on 02-04-2024 Monocytes/100 WBC (Bld) 12.9 % Normal . [facility] Comment on above: Performed By: #### B MP, CBC ####[facility] [id number] [place] [address] Automated neutrophil %Ordere d By: Rubin Billy on 02-04-2024 Neutrophils/100 WBC (Bld) 72.1 % Normal . [facility] Comment on above: Performed By: #### B MP, CBC ####[place] [address] [place] [address] [facility] Basic Metabolic Panelon 01-14 Creatinine Clr Calc Pharmacy 86.96 Normal [facility] Comment on above: Result Comment: PERF ORMED BY: [facility] [address] [place] [place] [id number] PATHOLOGIST [employer] RECYCLING TECHNICIAN BETHANY ALBRIGHT M.D. Performed By: #### B MP, CBC ####[place] [id number] [facility] GFR/1.73 sq M.predicted MDRD (S/P/Bld) [Vol rate/Area] mL/min/{1.73_m2} Normal [facility] Comment on above: Performed By: #### B MP, CBC ####[place] [id number] [facility] Calcium [Mass/volume] in Ser um or PlasmaOrdered By: Rubin Billy on 02-04-2024 Calcium [Mass/Vol] 8.7 mg/dL Normal 8.6-10.3 [facility] Comment on above: Performed By: #### B MP, CBC ####[place] [id number] [facility] Carbon dioxide, total [Moles /volume] in Serum or PlasmaOrdered By: Rubin Billy on 02-04-2024 CO2 [Moles/Vol] 29.9 mmol/L Normal 21.0-31.0 [facility] Comment on above: Performed By: #### B MP, CBC ####[place] [id number] [place] Chloride [Moles/volume] in S christine or PlasmaOrdered By: Rubin Billy on 02-04-2024 Chloride [Moles/Vol] 100 mmol/L Normal 98-107 [facility] Comment on above: Performed By: #### B MP, CBC ####[place] [id number] [facility] Complete Blood Count Auto Di ffon 02-04-2024 Mean Corpuscular HGB Conc 33.7 g/dL Normal 32.5-35.6 [facility] Comment on above: Performed By: #### B MP, CBC ####[place] [id number] NRBC% 0.1 /100{WBC} Normal 0-0.5 [facility] Comment on above: Performed By: #### B MP, CBC ####[place] [id number] [facility] Creatinine [Mass/volume] in Serum or PlasmaOrdered By: Rubin Billy on 02-04-2024 Creatinine [Mass/Vol] 0.88 mg/dL Normal 0.70-1.30 [facility] Comment on above: Performed By: #### B MP, CBC ####[place] [id number] Erythrocyte distribution wid th [Ratio] by Automated countOrdered By: Rubin Billy on 02-04-2024 Erythrocyte distribution width (RBC) [Ratio] 14.1 % Normal 12.0-14.8 [facility] Comment on above: Performed By: #### B MP, CBC ####[address] Erythrocytes [#/volume] in B lood by Automated countOrdered By: Rubin Billy on 02-04-2024 RBC (Bld) [#/Vol] 3.74 10*6/uL Low 3.90-5.60 [facility] Comment on above: Performed By: #### B MP, CBC ####[address] Glucose [Mass/volume] in Ser um or PlasmaOrdered By: Rubin Billy on 02-04-2024 Glucose [Mass/Vol] 83 mg/dL Normal 70-100 [facility] Comment on above: ADA recommended refe rence rangeRandom Glucose Reference Range is dependent on time and content of last meal. Glucose of more than 200 mg/dL in a nonstressed, ambulatory subject supports the diagnosis of Diabetes Mellitus. Result Comment: Coy om Glucose Reference Range is dependent on time and content of last meal. Glucose of more than 200 mg/dL in a nonstressed, ambulatory subject supports the diagnosis of Diabetes Mellitus. ADA recommended reference range Performed By: #### B MP, CBC ####[address] Hematocrit [Volume Fraction] of Blood by Automated countOrdered By: Rubin Billy on 02-04-2024 Hematocrit (Bld) [Volume fraction] 34.0 % Low 38.8-50.0 [facility] Comment on above: Performed By: #### B MP, CBC ####[address] Hemoglobin [Mass/volume] in BloodOrdered By: Rubin Billy on 02-04-2024 Hemoglobin (Bld) [Mass/Vol] 11.4 g/dL Low 13.0-17.0 [facility] Comment on above: Performed By: #### B MP, CBC ####[address] Leukocytes [#/volume] correc junior for nucleated erythrocytes in Blood by Automated counOrdered By: Rubin Billy on 02-04-2024 WBC corrected for nucl RBC Auto (Bld) [#/Vol] 7.7 10*3/uL 4.1-10.5 [facility] Leukocytes [#/volume] in Blo od by Automated countOrdered By: Rubin Billy on 02-04-2024 WBC (Bld) [#/Vol] 7.7 10*3/uL Normal 4.1-10.5 [facility] Comment on above: Performed By: #### B MP, CBC ####[address] Lymphocytes [#/volume] in Bl ood by Automated countOrdered By: Rubin Billy on 02-04-2024 Lymphocytes (Bld) [#/Vol] 1.1 10*3/uL Normal 1.00-4.8 [facility] Comment on above: Performed By: #### B MP, CBC ####[place] [address] [place] Lymphocytes/100 leukocytes i n Blood by Automated countOrdered By: Rubin Billy on 02-04-2024 Lymphocytes/100 WBC (Bld) 13.6 % Normal . [facility] Comment on above: Performed By: #### B MP, CBC ####[place] [id number] MCH [Entitic mass] by Automa junior countOrdered By: Rubin Billy on 02-04-2024 MCH (RBC) [Entitic mass] 30.6 pg Normal 27.5-35.2 [facility] Comment on above: Performed By: #### B MP, CBC ####[address] MCHC Auto (RBC) [Mass/Vol]Or dered By: Rubin Billy on 02-04-2024 MCHC (RBC) [Mass/Vol] 33.7 g/dL 32.5-35.6 [facility] MCV [Entitic volume] by Auto mated countOrdered By: Rubin Billy on 02-04-2024 MCV (RBC) [Entitic vol] 90.8 fL Normal 83.5-101 [facility] Comment on above: Performed By: #### B MP, CBC ####[address] Neutrophils [#/volume] in Bl ood by Automated countOrdered By: Rubin Billy on 02-04-2024 Neutrophils (Bld) [#/Vol] 5.6 10*3/uL Normal 1.8-7.7 [facility] Comment on above: Performed By: #### B MP, CBC ####[address] No Panel InformationOrdered By: Rubin Billy on 02-04-2024 Estimated GFR (CKD-EPI) > 60.0 mL/Min [facility] Creatinine Clearance (Chem 86.96 [facility] Nucleated erythrocytes [Pres ence] in Blood by Automated countOrdered By: Rubin Billy on 02-04-2024 Nucleated RBC Auto Ql (Bld) 0.1 /100{WBC} 0-0.5 [facility] Platelet mean volume [Entiti c volume] in Blood by Automated countOrdered By: Rubin Billy on 02-04-2024 Platelet mean volume (Bld) [Entitic vol] 7.8 fL Normal 6.6-10.1 [facility] Comment on above: Performed By: #### B MP, CBC ####[address] Platelets [#/volume] in Bloo d by Automated countOrdered By: Rubin Billy on 02-04-2024 Platelets (Bld) [#/Vol] 246 10*3/uL Normal 150-450 [facility] Comment on above: Performed By: #### B MP, CBC ####[place] [id number] [facility] Potassium [Moles/volume] in Serum or PlasmaOrdered By: Rubin Billy on 02-04-2024 Potassium [Moles/Vol] 4.4 mmol/L Normal 3.5-5.1 [facility] Comment on above: Performed By: #### B MP, CBC ####[place] [id number] [facility] Serum or plasma anion gap de terminationOrdered By: Rubin Billy on 02-04-2024 Anion gap [Moles/Vol] 7.5 mmol/L Normal 6.0-15.0 [facility] Comment on above: Performed By: #### B MP, CBC ####[place] [id number] [facility] Sodium [Moles/volume] in Ser um or PlasmaOrdered By: Rubin Billy on 02-04-2024 Sodium [Moles/Vol] 133 mmol/L Low 136-145 [facility] Comment on above: Performed By: #### B MP, CBC ####[place] [id number] [facility] Urea nitrogen [Mass/volume] in Serum or PlasmaOrdered By: Rubin Billy on 02-04-2024 Urea nitrogen [Mass/Vol] 22 mg/dL Normal 7-25 [facility] Comment on above: Performed By: #### B MP, CBC ####[facility] [address] [place] [address] [facility] A1C with Estimated Average G elder 02-03-2024 Glucose [Mass/Vol] 108 mg/dL Normal [facility] Comment on above: Result Comment: PERF ORMED BY: [facility] [address] [place] [id number] PATHOLOGIST [employer] RECYCLING TECHNICIAN BETHANY ALBRIGHT M.D. Performed By: #### L IPID, PTT, MG, CBC, A1C WTH eA, BMP, PT, HEPATIC ####[facility] [address] [place] [address] [facility] Activated partial thrombopla stin time (aPTT) in platelet poor plasma by coagulation aOrdered By: Rubin Billy on 02-03-2024 aPTT Coag (PPP) [Time] 30.2 s 25.1-36.5 [facility] Comment on above: A hematocrit value g reater than 55% may lead to inaccurate results in coagulation testing. Patients having hematocrit values >55% require a special collection tube for coagulation studies. Please contact the laboratory at [phone] for redraw instructions. Alanine aminotransferase [En zymatic activity/volume] in Serum or PlasmaOrdered By: Rubin Billy on 02-03-2024 ALT [Catalytic activity/Vol] 7 U/L Normal -52 [facility] Comment on above: Performed By: #### L IPID, PTT, MG, CBC, A1C WTH eA, BMP, PT, HEPATIC ####[facility] [address] [place] [address] [facility] Albumin [Mass/volume] in Ser um or Plasma by Bromocresol green (BCG) dye binding methoOrdered By: Rubin Billy on 02-03-2024 Albumin BCG dye [Mass/Vol] 3.6 g/dL 3.5-5.7 [facility] Alkaline phosphatase [Enzyma tic activity/volume] in Serum or PlasmaOrdered By: Rubin Billy on 02-03-2024 ALP [Catalytic activity/Vol] 62 U/L Normal 34-104 [facility] Comment on above: Performed By: #### L IPID, PTT, MG, CBC, A1C WTH eA, BMP, PT, HEPATIC ####[facility] Aspartate aminotransferase [ Enzymatic activity/volume] in Serum or PlasmaOrdered By: Rubin Billy on 02-03-2024 AST [Catalytic activity/Vol] 10 U/L Low 13-39 [facility] Comment on above: Performed By: #### L IPID, PTT, MG, CBC, A1C WTH eA, BMP, PT, HEPATIC ####[place] [id number] [address] BNP ser/plasOrdered By: Mook Reed on 02-03-2024 Natriuretic peptide B (Bld) [Mass/Vol] 239.0 pg/mL High 5-100 [facility] Comment on above: Result Comment: PERF ORMED BY: [place] [address] PATHOLOGIST [employer] RECYCLING TECHNICIAN BETHANY ALBRIGHT M.D. Performed By: #### B CEILING INSULATION BLOWER, HS TROP #### [address] Basic Metabolic Panelon 01-14 Anion gap [Moles/Vol] 9.3 mmol/L Normal 6.0-15.0 [facility] Comment on above: Performed By: #### L IPID, PTT, MG, CBC, A1C WTH eA, BMP, PT, HEPATIC ####[place] [address] [address] Calcium [Mass/Vol] 9.0 mg/dL Normal 8.6-10.3 [facility] Comment on above: Performed By: #### L IPID, PTT, MG, CBC, A1C WTH eA, BMP, PT, HEPATIC ####[place] [address] [address] Chloride [Moles/Vol] 99 mmol/L Normal 98-107 [facility] Comment on above: Performed By: #### L IPID, PTT, MG, CBC, A1C WTH eA, BMP, PT, HEPATIC ####[address] CO2 [Moles/Vol] 29.2 mmol/L Normal 21.0-31.0 [facility] Comment on above: Performed By: #### L IPID, PTT, MG, CBC, A1C WTH eA, BMP, PT, HEPATIC ####[address] Creatinine [Mass/Vol] 0.98 mg/dL Normal 0.70-1.30 [facility] Comment on above: Performed By: #### L IPID, PTT, MG, CBC, A1C WTH eA, BMP, PT, HEPATIC ####[address] Creatinine Clr Calc Pharmacy 77.28 Normal [facility] Comment on above: Performed By: #### L IPID, PTT, MG, CBC, A1C WTH eA, BMP, PT, HEPATIC ####[address] GFR/1.73 sq M.predicted MDRD (S/P/Bld) [Vol rate/Area] mL/min/{1.73_m2} Normal [facility] Comment on above: Performed By: #### L IPID, PTT, MG, CBC, A1C WTH eA, BMP, PT, HEPATIC ####[address] Glucose [Mass/Vol] 123 mg/dL High 70-100 [facility] Comment on above: Result Comment: Coy Glucose Reference Range is dependent on time and content of last meal. Glucose of more than 200 mg/dL in a nonstressed, ambulatory subject supports the diagnosis of Diabetes Mellitus. ADA recommended reference range Performed By: #### L IPID, PTT, MG, CBC, A1C WTH eA, BMP, PT, HEPATIC ####[address] Potassium [Moles/Vol] 4.5 mmol/L Normal 3.5-5.1 [facility] Comment on above: Performed By: #### L IPID, PTT, MG, CBC, A1C WTH eA, BMP, PT, HEPATIC ####[place] [address] Sodium [Moles/Vol] 133 mmol/L Low 136-145 [facility] Comment on above: Performed By: #### L IPID, PTT, MG, CBC, A1C WTH eA, BMP, PT, HEPATIC ####[address] Urea nitrogen [Mass/Vol] 27 mg/dL High 7-25 [facility] Comment on above: Performed By: #### L IPID, PTT, MG, CBC, A1C WTH eA, BMP, PT, HEPATIC ####[address] Bilirubin.direct [Mass/volum e] in Serum or PlasmaOrdered By: Rubin Billy on 02-03-2024 Bilirubin.direct [Mass/Vol] 0.10 mg/dL 0.03-0.18 [facility] Bilirubin.total [Mass/volume ] in Serum or PlasmaOrdered By: Rubin Billy on 02-03-2024 Bilirubin [Mass/Vol] 0.6 mg/dL Normal 0.3-1.0 [facility] Comment on above: Performed By: #### L IPID, PTT, MG, CBC, A1C WTH eA, BMP, PT, HEPATIC ####[address] Cholesterol [Mass/volume] in Serum or PlasmaOrdered By: Rubin Billy on 02-03-2024 Cholesterol [Mass/Vol] 144 mg/dL Normal 140-200 [facility] Comment on above: Chol less than 200 m g/dl low riskChol 201-239 mg/dl borderline riskChol 240 mg/dl and greater high risk Result Comment: Chol less than 200 mg/dl low risk Chol 201-239 mg/dl borderline risk Chol 240 mg/dl and greater high risk Performed By: #### L IPID, PTT, MG, CBC, A1C WTH eA, BMP, PT, HEPATIC ####[place] [address] [place] [id number] [facility] Cholesterol in LDL Calc [Mas s/Vol]Ordered By: Rubin Billy on 02-03-2024 Cholesterol in LDL [Mass/Vol] 64 mg/dL 0-100 [facility] Comment on above: LDL ATP III CLASSIFI CATIONLDL less than 100 mg/dL OptimalLDL 100-129 mg/dL Near or above optimalLDL 130-159 mg/dL Borderline highLDL 160-189 mg/dL HighLDL greater than 189 mg/dL Very high Cholesterol in VLDL Calc [Ma ss/Vol]Ordered By: Rubin Billy on 02-03-2024 Cholesterol in VLDL [Mass/Vol] 7 mg/dL [facility] Complete Blood Count Auto Di ffon 02-03-2024 Basophils (Bld) [#/Vol] 0.0 10*3/uL Normal 0.0-0.2 [facility] Comment on above: Result Comment: PERF ORMED BY: [facility] [address] [place] [address] PATHOLOGIST [employer] RECYCLING TECHNICIAN BETHANY ALBRIGHT M.D. Performed By: #### L IPID, PTT, MG, CBC, A1C WTH eA, BMP, PT, HEPATIC ####[address] Basophils/100 WBC (Bld) 0.1 % Normal . [facility] Comment on above: Performed By: #### L IPID, PTT, MG, CBC, A1C WTH eA, BMP, PT, HEPATIC ####[place] [address] [place] Eosinophils (Bld) [#/Vol] 0.0 10*3/uL Normal 0.0-0.45 [facility] Comment on above: Performed By: #### L IPID, PTT, MG, CBC, A1C WTH eA, BMP, PT, HEPATIC ####[place] [id number] [place] Eosinophils/100 WBC (Bld) 0.0 % Normal . [facility] Comment on above: Performed By: #### L IPID, PTT, MG, CBC, A1C WTH eA, BMP, PT, HEPATIC ####[address] Erythrocyte distribution width (RBC) [Ratio] 13.9 % Normal 12.0-14.8 [facility] Comment on above: Performed By: #### L IPID, PTT, MG, CBC, A1C WTH eA, BMP, PT, HEPATIC ####[address] Hematocrit (Bld) [Volume fraction] 34.1 % Low 38.8-50.0 [facility] Comment on above: Performed By: #### L IPID, PTT, MG, CBC, A1C WTH eA, BMP, PT, HEPATIC ####[address] Hemoglobin (Bld) [Mass/Vol] 11.4 g/dL Low 13.0-17.0 [facility] Comment on above: Performed By: #### L IPID, PTT, MG, CBC, A1C WTH eA, BMP, PT, HEPATIC ####[address] Lymphocytes (Bld) [#/Vol] 0.5 10*3/uL Low 1.00-4.8 [facility] Comment on above: Performed By: #### L IPID, PTT, MG, CBC, A1C WTH eA, BMP, PT, HEPATIC ####[address] Lymphocytes/100 WBC (Bld) 5.3 % Normal . [facility] Comment on above: Performed By: #### L IPID, PTT, MG, CBC, A1C WTH eA, BMP, PT, HEPATIC ####[address] MCH (RBC) [Entitic mass] 30.6 pg Normal 27.5-35.2 [facility] Comment on above: Performed By: #### L IPID, PTT, MG, CBC, A1C WTH eA, BMP, PT, HEPATIC ####[address] MCV (RBC) [Entitic vol] 92.1 fL Normal 83.5-101 [facility] Comment on above: Performed By: #### L IPID, PTT, MG, CBC, A1C WTH eA, BMP, PT, HEPATIC ####[address] Mean Corpuscular HGB Conc 33.3 g/dL Normal 32.5-35.6 [facility] Comment on above: Performed By: #### L IPID, PTT, MG, CBC, A1C WTH eA, BMP, PT, HEPATIC ####[address] Monocytes (Bld) [#/Vol] 0.9 10*3/uL High 0.0-0.8 [facility] Comment on above: Performed By: #### L IPID, PTT, MG, CBC, A1C WTH eA, BMP, PT, HEPATIC ####[address] Monocytes/100 WBC (Bld) 9.4 % Normal . [facility] Comment on above: Performed By: #### L IPID, PTT, MG, CBC, A1C WTH eA, BMP, PT, HEPATIC ####[address] Neutrophils (Bld) [#/Vol] 8.6 10*3/uL High 1.8-7.7 [facility] Comment on above: Performed By: #### L IPID, PTT, MG, CBC, A1C WTH eA, BMP, PT, HEPATIC ####[address] Neutrophils/100 WBC (Bld) 85.2 % Normal . [facility] Comment on above: Performed By: #### L IPID, PTT, MG, CBC, A1C WTH eA, BMP, PT, HEPATIC ####[address] NRBC% 0.0 /100{WBC} Normal 0-0.5 [facility] Comment on above: Performed By: #### L IPID, PTT, MG, CBC, A1C WTH eA, BMP, PT, HEPATIC ####[place] [id number] [address] Platelet mean volume (Bld) [Entitic vol] 7.9 fL Normal 6.6-10.1 [facility] Comment on above: Performed By: #### L IPID, PTT, MG, CBC, A1C WTH eA, BMP, PT, HEPATIC ####[address] Platelets (Bld) [#/Vol] 259 10*3/uL Normal 150-450 [facility] Comment on above: Performed By: #### L IPID, PTT, MG, CBC, A1C WTH eA, BMP, PT, HEPATIC ####[place] [address] [address] RBC (Bld) [#/Vol] 3.71 10*6/uL Low 3.90-5.60 [facility] Comment on above: Performed By: #### L IPID, PTT, MG, CBC, A1C WTH eA, BMP, PT, HEPATIC ####[address] WBC (Bld) [#/Vol] 10.1 10*3/uL Normal 4.1-10.5 [facility] Comment on above: Performed By: #### L IPID, PTT, MG, CBC, A1C WTH eA, BMP, PT, HEPATIC ####[place] [id number] [facility] ECG 12 lead ECGon 02-03-2024 ECG 12 lead ECG [facility] [address] [place] [address] [place] [address] Electrocardiograph Report Signed Patient: Mary Mcadams MR#: [id number] : 1955 Acct:[id number] Age/Sex: 68 / M ADM Date: 02/02/24 Loc: Room: [address] [place] [address] Type: ADM IN Attending Dr: Silvano Reed DO Ordering Provider: Silvano Reed DO Date of Service: 02/03/24 ECG/ECG 12 lead ECG: New A-fib Copies to: Test Reason : Blood Pressure : */* mmHG Vent. Rate : 67 BPM Atrial Rate : * BPM P-R Int : * ms QRS Dur : 132 ms QT Int : 438 ms P-R-T Axes : * -36 41 degrees QTcB Int : 462 ms Atrial fibrillation Left axis deviation Nonspecific intraventricular block Left ventricular hypertrophy Abnormal ECG When compared with ECG of 02-Feb-2024 10:58, QRS axis shifted left Nonspecific T wave abnormality has replaced inverted T waves in Inferior leads Nonspecific T wave abnormality no longer evident in Lateral leads Confirmed by LISA SALMON FAC, SHANNON ([id number]) on 02/03/2024 2:22:02 PM Referred By: Electronically Signed By: HSANNON GONZALEZ MD FAC Transcribed By: MUS Signed By Shannon Gonzalez MD, FACC 02/03/24 1422 Normal [facility] ECH echo transthoracicon ECH echo transthoracic [facility] [address] Echocardiogram Signed Patient: Mary Mcadams MR#: [id number] : 1955 Acct:[id number] Age/Sex: 68 / M ADM Date: 02/02/24 Loc: Room: [address] [place] [address] Type: ADM IN Attending Dr: Silvano Reed DO Ordering Provider: Rubin Billy DO, RES Date of Service: 02/02/24 ECH/ECH echo transthoracic: new afib Copies to: Rubin Billy DO, RES Shannon Gonzalez MD, FAC Height: 72 in Weight: 169 lb Performed By: LOLA Partida BSA: 2.0 m2 BP: 120/84 mmHg HR: 78 Reason For Study: new afib History: Sarcoidosis, COPD, Alcohol Use, Non-ischemic cardiomyopathy,emphysema, Afib, HTN Interpretation Summary Mild concentric left ventricular hypertrophy. Ejection Fraction = 50-55%. Diastolic function cannot be assessed in the presence of atrial fibrillation The left atrium appears mildly dilated. The patient was in atrial fibrillation through out the study. Compared to prior echo report on 08/01/2015, changes are noted. The left ventricle ejection fraction has slightly improved, atrial fibrillation was not reported previously Procedure/Quality: A two-dimensional transthoracic echocardiogram with color flow and Doppler was performed. The study was technically good in quality. Compared to prior echo report on 08/01/2015, changes are noted. The left ventricle ejection fraction has slightly improved, atrial fibrillation was not reported previously. Left Ventricle: Mild concentric left ventricular hypertrophy. Ejection Fraction = 50-55%. Diastolic function cannot be assessed in the presence of atrial fibrillation. Left Atrium: The left atrium appears mildly dilated. The atrial septum appears normal. Right Atrium: The right atrium appears normal in size. Right Ventricle: The right ventricular size, thickness and function are normal. Aortic Valve: The aortic valve is normal in structure and function. Mitral Valve: The mitral valve is normal. There is trace mitral regurgitation. Tricuspid Valve: The tricuspid valve is normal in structure. Pulmonic Valve: The pulmonic valve is not well seen, but is grossly normal. Arteries: Borderline aortic root dilatation. Pericardium/Pleura: No pericardial effusion seen. There is no pleural effusion. IVC/Hepatic Veins: The IVC is normal in size with an inspiratory collapse of greater then 50%, suggesting normal right atrial pressure. Miscellaneous: No thrombus, vegetation or mass is seen. The patient was in atrial fibrillation through out the study. Measurements with Normals IVSd: 1.4 cm (0.7-1.1 cm)LVIDd: 4.9 cm (3.7-5.4 cm) LVPWd: 1.3 cm (0.7-1.1 cm)LVIDs: 3.8 cm (2.3-3.6 cm) LA dimension: 4.2 cm (2.3-4.0 cm)Ao root diam: 3.6 cm(2.0-3.6 cm) asc Aorta Diam: 3.9 cm(2.1-3.4cm) Doppler with Normals LV V1 max: 63.8 cm/sec(0.7-1.7m/s)MV E max christina: 70.7 cm/sec(0.8-1.3m/s) MMode/2D Measurements Calculations RVDd: 2.6 cm FS: 23.3 % Ao root area: LVOT diam: 2.0 cm TAPSE: 1.8 cm EDV(Teich): 10.3 cm2 LVOT area: 3.1 cm2 RV S Christina: 113.1 ml 11.0 cm/sec ESV(Teich): 60.5 ml EF(Teich): 46.5 % __ LVLd ap4: 7.9 cm SV(MOD-sp4): LAV(MOD-sp4): LA A2 area: 29.9 cm2 EDV(MOD-sp4): 33.6 ml 82.1 ml 87.2 ml LAV(MOD-sp2): LA A4 area: 24.3 cm2 LVLs ap4: 7.3 cm 114.0 ml LA length (vol): ESV(MOD-sp4): 5.6 cm 53.6 ml LA vol: 109.3 ml EF(MOD-sp4): 38.5 % LA vol index: 55.1 ml/m2 Doppler Measurements Calculations MV dec time: MV V2 max: E/E' lat: MV dec slope: 0.35 sec 72.8 cm/sec 5.1 MV max P.1 mmHg E/E' med: 202.8 cm/sec2 MV V2 mean: 10.4 29.3 cm/sec MV mean P.48 mmHg MV V2 VTI: 18.6 cm MVA(VTI): 3.0 cm2 __ Ao V2 max: LV V1 max P.4 cm/sec 1.6 mmHg Ao max P.0 mmHg LV V1 mean PG: Ao mean P.4 mmHg 0.88 mmHg Ao V2 mean: LV V1 mean: 74.2 cm/sec 44.2 cm/sec Ao V2 VTI: 24.0 cm LV V1 VTI: 18.5 cm CATARINO(I,D): 2.3 cm2 CATARINO(V,D): 1.9 cm2 Measurements from QLAB CI (): ED Mass (HM): LAEF (): 50.0 % BSA (): 2.0 m2 209.0 grams 2.6 l/min/m2 __ CARLOS (): LAVmax (): LAVmin (): 91.0 mlPat Height (): 92.0 ml/m2 182.0 ml 183.0 cm __ Pat Weight (HM): 76.8 kg QLAB Heart Model EDV (HM)_phl: 173.0 ml EF (HM)_phl: 43.0 % ED Current (HM)_phl: 60.0 % ESV (HM)_phl: 98.0 ml HR (HM)_phl: 69.0 BPMES Current (HM)_phl: 30.0 % LV Length ED (HM)_phl: 96.0 mmSV (HM)_phl: 75.0 ml ED Default (HM)_phl: 60.0 % LV Length ES (HM)_phl: 82.0 mm ES Default (HM)_phl: 30.0 % Transcribed By: SCV Performed At: 02/03/24 0846 Signed By: Shannon Gonzalez MD, [facility] 02/03/24 1419 Normal [facility] Glucose mean value [Mass/vol ume] in Blood Estimated from glycated hemoglobinOrdered By: Rubin Billy on 02-03-2024 Average glucose Estimated from glycated hemoglobin (Bld) [Mass/Vol] 108 mg/dL [facility] Hemoglobin A1c percentageOrd ered By: Rubin Billy on 02-03-2024 HbA1c (Bld) [Mass fraction] 5.4 % Normal 4.3-5.6 [facility] Comment on above: Increased risk for d iabetes: 5.7 - 6.4diabetes: >6.4glycemic control for adults with diabetes: <7.0 Result Comment: Incr eased risk for diabetes: 5.7 - 6.4 diabetes: >6.4 glycemic control for adults with diabetes: <7.0 Performed By: #### L IPID, PTT, MG, CBC, A1C WTH eA, BMP, PT, HEPATIC ####[facility] Hepatic Panelon 02-03-2024 Albumin [Mass/Vol] 3.6 g/dL Normal 3.5-5.7 [facility] Comment on above: Performed By: #### L IPID, PTT, MG, CBC, A1C WTH eA, BMP, PT, HEPATIC ####[place] [address] [address] Bilirubin,Indirect 0.5 mg/dL Normal [facility] Comment on above: Performed By: #### L IPID, PTT, MG, CBC, A1C WTH eA, BMP, PT, HEPATIC ####[place] [address] [address] Bilirubin.indirect [Mass/Vol] 0.10 mg/dL Normal 0.03-0.18 [facility] Comment on above: Performed By: #### L IPID, PTT, MG, CBC, A1C WTH eA, BMP, PT, HEPATIC ####[place] [address] [address] INR in Platelet poor plasma by Coagulation assayOrdered By: Rubin Billy on 02-03-2024 INR Coag (PPP) [Relative time] 1.0 {INR} Normal [facility] Comment on above: INR Therapeutic Rang e A) Pre- and Peroperative OAT started two weeks before surgery. NOT HIP SURGERY: 1.5 - 2.5 HIP SURGERY: 2 - 3B) Primary and secondary prevention of venous THROMBOSIS: 2 - 3C) Active venous thrombosis, pulmonary embolismand prevention of recurrent venous thrombosis: 2 - 3D) Prevention of arterial thromboembolismincluding patients with mechanical heart valves: 3 - 4.5 Result Comment: INR Therapeutic Range A) Pre- and Peroperative OAT started two weeks before surgery. NOT HIP SURGERY: 1.5 - 2.5 HIP SURGERY: 2 - 3 B) Primary and secondary prevention of venous THROMBOSIS: 2 - 3 C) Active venous thrombosis, pulmonary embolism and prevention of recurrent venous thrombosis: 2 - 3 D) Prevention of arterial thromboembolism including patients with mechanical heart valves: 3 - 4.5 Performed By: #### L IPID, PTT, MG, CBC, A1C WTH eA, BMP, PT, HEPATIC ####[place] [address] [place] [address] [facility] Lipid Panelon 02-03-2024 LDL Cholesterol,Calculated 64 mg/dL Normal 0-100 [facility] Comment on above: Result Comment: LDL ATP III CLASSIFICATION LDL less than 100 mg/dL Optimal LDL 100-129 mg/dL Near or above optimal LDL 130-159 mg/dL Borderline high LDL 160-189 mg/dL High LDL greater than 189 mg/dL Very high Performed By: #### L IPID, PTT, MG, CBC, A1C WTH eA, BMP, PT, HEPATIC ####[place] [address] [place] [id number] [facility] Triglyceride w/Reflex 37 mg/dL Normal 0-149 [facility] Comment on above: Result Comment: TRIG ATP III CLASSIFICATION TRIG less than 150 mg/dL Normal TRIG 150-199 mg/dL Borderline high TRIG 200-500 mg/dL High TRIG greater than 500 mg/dL Very high Standard traceable to the Center for Disease Conrtrol and Prevention (CDC) test method. Performed By: #### L IPID, PTT, MG, CBC, A1C WTH eA, BMP, PT, HEPATIC ####[place] [address] [place] [id number] [facility] VLDL CHOLESTEROL 7 mg/dL Normal [facility] Comment on above: Performed By: #### L IPID, PTT, MG, CBC, A1C WTH eA, BMP, PT, HEPATIC ####[place] [address] [place] [id number] [facility] Magnesium [Mass/volume] in S christine or PlasmaOrdered By: Rubin Billy on 02-03-2024 Magnesium [Mass/Vol] 1.9 mg/dL Normal 1.9-2.7 [facility] Comment on above: Performed By: #### L IPID, PTT, MG, CBC, A1C WTH eA, BMP, PT, HEPATIC ####[facility] [place] [address] [facility] Partial Thromboplastin Timeo n 02-03-2024 aPTT Coag (Bld) [Time] 30.2 s Normal 25.1-36.5 Th e [facility] Comment on above: Result Comment: A he matocrit value greater than 55% may lead to inaccurate results in coagulation testing. Patients having hematocrit values >55% require a special collection tube for coagulation studies. Please contact the laboratory at [phone] for redraw instructions. PERFORMED BY: [facility] [address] [place] [address] PATHOLOGIST [employer] RECYCLING TECHNICIAN BETHANY ALBRIGHT M.D. Performed By: #### L IPID, PTT, MG, CBC, A1C WTH eA, BMP, PT, HEPATIC ####[place] [address] [place] [address] [facility] Protein [Mass/volume] in Ser um or PlasmaOrdered By: Rubin Billy on 02-03-2024 Protein [Mass/Vol] 6.2 g/dL Low 6.4-8.9 [facility] Comment on above: Performed By: #### L IPID, PTT, MG, CBC, A1C WTH eA, BMP, PT, HEPATIC ####[place] [address] [place] [address] [facility] Prothrombin time (PT)Ordered By: Rubin Billy on 02-03-2024 PT Coag (PPP) [Time] 11.7 s Normal 9.0-12.9 [facility] Comment on above: A hematocrit value g reater than 55% may lead to inaccurate results in coagulation testing. Patients having hematocrit values >55% require a special collection tube for coagulation studies. Please contact the laboratory at [phone] for redraw instructions. Result Comment: A he matocrit value greater than 55% may lead to inaccurate results in coagulation testing. Patients having hematocrit values >55% require a special collection tube for coagulation studies. Please contact the laboratory at [phone] for redraw instructions. Performed By: #### L IPID, PTT, MG, CBC, A1C WTH eA, BMP, PT, HEPATIC ####[facility] [place] [address] [facility] Serum globulin measurement b y calculation (mass/volume)Ordered By: Rubin Billy on 02-03-2024 Globulin (S) [Mass/Vol] 2.6 g/dL Normal [facility] Comment on above: Performed By: #### L IPID, PTT, MG, CBC, A1C WTH eA, BMP, PT, HEPATIC ####[facility] [id number] Serum or plasma albumin/glob ulin mass ratioOrdered By: Rubin Billy on 02-03-2024 Albumin/Globulin [Mass ratio] 1.4 {ratio} Normal [facility] Comment on above: Performed By: #### L IPID, PTT, MG, CBC, A1C WTH eA, BMP, PT, HEPATIC ####[facility] Mar1998 [address] Serum or plasma high density lipoprotein (HDL) cholesterol measurementOrdered By: Rubin Billy on 02-03-2024 Cholesterol in HDL [Mass/Vol] 73 mg/dL Normal 23-92 [facility] Comment on above: HDL CHOL ATP-III CLA SSIFICATION Cardiovascular RiskHDL > or equal to 60 mg/dL LOWHDL < 40 mg/dL HIGH Result Comment: HDL CHOL ATP-III CLASSIFICATION Cardiovascular Risk HDL > or equal to 60 mg/dL LOW HDL < 40 mg/dL HIGH Performed By: #### L IPID, PTT, MG, CBC, A1C WTH eA, BMP, PT, HEPATIC ####[facility] [id number] [address] Serum or plasma non-glucuron idated bilirubin measurement (mass/volume)Ordered By: Rubin Billy on 02-03-2024 Bilirubin.indirect [Mass/Vol] 0.5 mg/dL [facility] Serum or plasma total choles terol/high density lipoprotein (HDL) cholesterol mass ratOrdered By: Rubin Billy on 02-03-2024 Cholesterol.total/Chol esterol in HDL [Mass ratio] 2.0 {ratio} Normal <5.0 [facility] Comment on above: Result Comment: PERF ORMED BY: [facility] [address] [address] PATHOLOGIST [employer] RECYCLING TECHNICIAN BETHANY ALBRIGHT M.D. Performed By: #### L IPID, PTT, MG, CBC, A1C WTH eA, BMP, PT, HEPATIC ####[facility] [id number] [place] [address] [facility] Triglyceride [Mass/volume] i n Serum or PlasmaOrdered By: Rubin Billy on 02-03-2024 Triglyceride [Mass/Vol] 37 mg/dL 0-149 [facility] Comment on above: TRIG ATP III CLASSIF ICATIONTRIG less than 150 mg/dL NormalTRIG 150-199 mg/dL Borderline highTRIG 200-500 mg/dL High TRIG greater than 500 mg/dL Very highStandard traceable to the Center for Disease Conrtrol and Prevention (CDC) test method. Troponin I High Sensitivityo n 02-03-2024 Troponin I High Sensitivity 5.3 pg/mL Normal 0.0-20.0 [facility] Comment on above: Result Comment: PERF ORMED BY: [facility] [address] [place] [address] PATHOLOGIST [employer] RECYCLING TECHNICIAN BETHANY ALBRIGHT M.D. Performed By: #### B CEILING INSULATION BLOWER, HS TROP #### [facility] [address] Troponin I.cardiac [Mass/vol ume] in Serum or Plasma by Detection limit <= 0.01 ng/Ordered By: Silvano Reed on 02-03-2024 Troponin I.cardiac DL <= 0.01 ng/mL [Mass/Vol] 5.3 pg/mL 0.0-20.0 [facility] ECG 12 lead ECGon 02-02-2024 ECG 12 lead ECG [facility] [address] [place] [address] [place] [address] Electrocardiograph Report Signed Patient: Mary Mcadams MR#: [id number] : 1955 Acct:[id number] Age/Sex: 68 / M ADM Date: 02/02/24 Loc: Room: [address] [place] [address] Type: ADM IN Attending Dr: Silvano Reed DO Ordering Provider: Silvano Reed DO Date of Service: 02/02/24 ECG/ECG 12 lead ECG: New A-fib Copies to: Test Reason : Blood Pressure : */* mmHG Vent. Rate : 80 BPM Atrial Rate : * BPM P-R Int : * ms QRS Dur : 124 ms QT Int : 412 ms P-R-T Axes : * 27 -28 degrees QTcB Int : 475 ms Atrial fibrillation Nonspecific intraventricular conduction delay Minimal voltage criteria for LVH, may be normal variant ( Lloyd product ) Nonspecific ST and T wave abnormality Abnormal ECG When compared with ECG of 04-Jul-2018 21:29, Atrial fibrillation has replaced sinus rhythm Confirmed by LISA SALMON [facility], SHANNON ([id number]) on 02/02/2024 7:44:42 PM Referred By: Electronically Signed By: SHANNON GONZALEZ MD [facility] Transcribed By: MUS Signed By Shannon Gonzalez MD, [facility] 02/02/241943 Normal [facility] Basophils/100 WBC Manual cnt (Bld)on 02-01-2024 Basophils/100 WBC (Bld) 1.0 % 0.2-2.0 [facility] Eosinophils/100 WBC Manual c nt (Bld)on 02-01-2024 Eosinophils/100 WBC (Bld) 0.0 % Low 0.9-7.0 [facility] Erythrocyte distribution wid th Auto (RBC) [Ratio]on 02-01-2024 Erythrocyte distribution width (RBC) [Ratio] 13.6 % 11.0-15.0 [facility] Estimated glomerular filtrat ion rate (GFR) non- Americanon 02-01-2024 GFR/1.73 sq M.predicted among non-blacks MDRD (S/P/Bld) [Vol rate/Area] mL/min/{1.73_m2} >=60 [facility] Hematocrit Auto (Bld) [Volum e fraction]on 02-01-2024 Hematocrit (Bld) [Volume fraction] 36.0 % Low 42.0-54.0 [facility] Hemoglobin [Mass/volume] in Bloodon 02-01-2024 Hemoglobin (Bld) [Mass/Vol] 12.1 g/dL Low 14.0-18.0 [facility] Laboratory - Chemistry and C hemistry - challengeon 02-01-2024 Calcium [Mass/Vol] 9.0 mg/dL 8.5-10.1 [facility] Chloride [Moles/Vol] 96 mmol/L Low 98-107 [facility] CO2 [Moles/Vol] 28.2 mmol/L 21.0-32.0 [facility] Creatinine [Mass/Vol] 0.77 mg/dL 0.70-1.30 [facility] GFR/1.73 sq M.predicted MDRD (S/P/Bld) [Vol rate/Area] mL/min/{1.73_m2} >=60 [facility] Glucose [Mass/Vol] 121 mg/dL High 74-106 [facility] Magnesium [Mass/Vol] 1.8 mg/dL 1.8-2.4 [facility] Natriuretic peptide B (Bld) [Mass/Vol] 2166.0 pg/mL High <=900.0 [facility] Comment on above: RESULTS CALLED TO PERCY LEYVA RN at 2105 Potassium [Moles/Vol] 4.2 mmol/L 3.5-5.1 [facility] Sodium [Moles/Vol] 130 mmol/L Low 136-145 [facility] Urea nitrogen [Mass/Vol] 15.0 mg/dL 7.0-18.0 [facility] Urea nitrogen/Creatinine [Mass ratio] 19.5 mg/mg [facility] Laboratory - Hematology and Cell countson 02-01-2024 Lymphocytes/100 WBC (Bld) 12.0 % Low 20.5-60.0 [facility] Monocytes/100 WBC (Bld) 5.0 % 1.7-12.0 [facility] Leukocytes [#/volume] correc junior for nucleated erythrocytes in Blood by Automated counon 02-01-2024 WBC corrected for nucl RBC Auto (Bld) [#/Vol] 8.6 10 3/uL 4.0-11.0 [facility] MCH Auto (RBC) [Entitic mass ]on 02-01-2024 MCH (RBC) [Entitic mass] 30.3 pg 25.9-34.0 [facility] MCHC Auto (RBC) [Mass/Vol]on 02-01-2024 MCHC (RBC) [Mass/Vol] 33.6 g/dL 29.9-35.2 [facility] MCV Auto (RBC) [Entitic vol] on 02-01-2024 MCV (RBC) [Entitic vol] 90.2 fL 80.0-94.0 [facility] No Panel Informationon 01-31 Absolute Basophils (Manual) 0.08 10 3/uL 0.00-0.10 [facility] Eosinophils # (Manual) 0.00 10 3/uL 0.00-0.70 [facility] Lymphocytes # (Manual) 1.03 10 3/uL Low 1.20-3.80 [facility] Monocytes # (Manual) 0.43 10 3/uL 0.30-0.80 [facility] Segmented Neutrophils # (Manual) 7.05 10 3/uL High 1.4-6.5 [facility] Troponin I High Sensitivity 7.0 pg/mL 4.0-76.1 [facility] Comment on above: CUT-OFF POINTS HAVE BEEN ESTABLISHED BASED ON THE FOURTHUNIVERSAL DEFINITION OF MYOCARDIAL INFARCTION. THE UPPERREFERENCE LIMIT (URL) OF TROPONIN, DEFINED THE 99THPERCENTILE OF cTnI DISTRIBUTION IN A REFERENCE POPULATION,HAS BEEN CONFIRMED THE DECISION THRESHOLD FOR MIDIAGNOSIS.99TH PERCENTILE = 76.2 PG/MLNOTE: HIGH-SENSITIVITY TROPONIN ASSAY IS NOT INTENDED TO BEUSED IN ISOLATION BUT SHOULD BE INTERPRETED IN CONJUNCTIONWITH OTHER DIAGNOSTIC AND CLINICAL INFORMATION. Platelet mean volume Auto (B ld) [Entitic vol]on 02-01-2024 Platelet mean volume (Bld) [Entitic vol] 9.9 fL 9.5-13.5 [facility] Platelets Auto (Bld) [#/Vol] on 02-01-2024 Platelets (Bld) [#/Vol] 249 10 3/uL 150-450 [facility] RBC Auto (Bld) [#/Vol]on RBC (Bld) [#/Vol] 3.99 10 6/uL Low 4.70-6.10 [facility] Segmented neutrophils/100 WB C Manual cnt (Bld)on 02-01-2024 Segmented neutrophils/100 WBC (Bld) 82.0 % High 43.0-75.0 [facility] Serum or plasma anion gap de terminationon 02-01-2024 Anion gap [Moles/Vol] 10.0 mmol/L [facility] Ambulatory Visit Summaryon 0 08-14-2023 Ambulatory Visit Summary MARY MCADAMS :1955 Visit Date:08/14/2023 Ambulatory Visit Instructions Your Diagnosis Elevated PSA BPH with urinary obstruction UTI (urinary tract infection) Incomplete bladder emptying Nocturia Your Care Team Attending Physician - Clinton NORMAN MD Primary Care Physician - ADAM DEL VALLE DO This Is Your Medications List finasteride [...] Appointments Monday 1:15 PM EDT With: Clinton NORMAN MD Where: [facility] Patient Educationon 08-14-19 24 Patient Education Urology [...] Follow these instructions at home: ? Take eoiy-geq-imnuwzd and prescription medicines only as told by [...] the medicine (more content not included)... Normal [facility] Urology Office/Clinic Noteon 08-14-2023 Urology Office/Clinic Note Chief Complaint 6m PSA HPI Staff 9m PSA DX: BPH, Incomplete Bladder Emptying & Elevated PSA *Flomax 0.4mg BID & Finasteride 5mg qd therapy- pt still taking Tamsulosin, does not think he is taking Finasteride. Per external pharmacy import, Finasteride 90 day supply last filled 03/01/23. Last PSA 4/21/23 *1.00 CIC once a day. Does void [...] and history for this patient from Dr. Norman. I have reviewed and verified the staff [...] URL [facility] [address], [place] [address] [id number] Additional Instructions: 6 mos w/ PSA Patient Education Benign Prostatic Hyperplasia I, Rhonda Temple, personally scribed for Dr. Norman on 08/14/2023 16:09:46. . Documentation recorded by the scribeRhonda, accurately reflects the services(s) I performed and decisions made by me. Authenticated by Dr. Norman on 08/14/2023 16:12:29. Problem List/Past Medical History [...] taking ipratropium, QID Pantoprazole [address] Manuel predniSONE, 5 mg, Oral, Daily tamsulosin 0.4 [...] influenza virus v (more content not included)... Normal [facility] Comment on above: Result Comment: Elec tronically Signed By: Clinton NORMAN MD\.br\Date and Time Signed: 08/14/23 16:12 EDT\.br\Electronically Co-Signed By: Rhonda Temple\.br\Date and Time Co-Signed: 08/14/23 16:10 EDT Lab Reportson 08-01-2023 Lab Reports [id number] Normal [facility] OSMOLALITYon 09-06-2022 Osmolality [Osmolality] 275 mosm/kg Critically low 280-301 [facility] Comment on above: Performed By: #### U YADIRA, BMP, TSH #### [facility] [address] [place] [address] Dr. Fabrizio Pascual OSMOLALITY URINEon 3 Osmolality, Urine 422 mOsmol/kg Normal [facility] Comment on above: Result Comment: 24 h r : 300 - 900 Random: 50 - 1400 After 12hr fluid restriction: >850 Performed By: #### U YADIRA, BMP, TSH #### [facility] [address] [place] [address] Dr. Fabrizio Pascual CBC W MANUAL DIFFon 09-03-19 23 ATYPICAL LYMPH # Normal [facility] Comment on above: Performed By: #### B CEILING INSULATION BLOWER, BMP, HSTROPN #### [facility] [address] [place] [address] Dr. Fabrizio Pascual ATYPICAL LYMPH % Normal [facility] Comment on above: Performed By: #### B CEILING INSULATION BLOWER, BMP, HSTROPN #### [facility] [address] [place] [address] Dr. Fabrizio Pascual BAND # 0.1 103/ul Normal 0.0-0.3 [facility] Comment on above: Performed By: #### B CEILING INSULATION BLOWER, BMP, HSTROPN #### [facility] [address] [place] [address] Dr. Fabrizio Pascual BAND % 1 % Normal 0-5 [facility] Comment on above: Performed By: #### B CEILING INSULATION BLOWER, BMP, HSTROPN #### [facility] [address] [place] [address] Dr. Fabrizio Pascual BASOM # 0.00 103/ul Normal 0.00-0.10 [facility] Comment on above: Performed By: #### B CEILING INSULATION BLOWER, BMP, HSTROPN #### [facility] [address] [place] [address] Dr. Fabrizio Pascual BASOM % 0.0 % Critically low 0.2-2.0 [facility] Comment on above: Performed By: #### B CEILING INSULATION BLOWER, BMP, HSTROPN #### [facility] [address] [place] [address] Dr. Fabrizio Pascual BLAST # Normal [facility] Comment on above: Performed By: #### B CEILING INSULATION BLOWER, BMP, HSTROPN #### [facility] [address] [place] [address] Dr. Fabrizio Pascual BLAST % Normal [facility] Comment on above: Performed By: #### B CEILING INSULATION BLOWER, BMP, HSTROPN #### [facility] [address] [place] [address] Dr. Fabrizio Pascual CORRECTED WBC Normal 4.0-11.0 [facility] Comment on above: Performed By: #### B CEILING INSULATION BLOWER, BMP, HSTROPN #### [facility] [address] [place] [address] Dr. Fabrizio Pascual EOS # 0.07 103/ul Normal 0.00-0.70 [facility] Comment on above: Performed By: #### B CEILING INSULATION BLOWER, BMP, HSTROPN #### [facility] [address] [place] [address] Dr. Fabrizio Pascual EOS% 1.0 % Normal 0.9-7.0 [facility] Comment on above: Performed By: #### B CEILING INSULATION BLOWER, BMP, HSTROPN #### [facility] [address] [place] [address] Dr. Fabrizio Pascual HCT 38.8 % Critically low 42.0-54.0 [facility] Comment on above: Performed By: #### B CEILING INSULATION BLOWER, BMP, HSTROPN #### [facility] [address] [place] [address] Dr. Fabrizio Pascual HGB 12.5 g/dl Critically low 14.0-18.0 [facility] Comment on above: Performed By: #### B CEILING INSULATION BLOWER, BMP, HSTROPN #### [facility] [address] [place] [address] Dr. Fabrizio Pascual LYMPHM # 0.68 103/ul Critically low 1.20-3.80 [facility] Comment on above: Performed By: #### B CEILING INSULATION BLOWER, BMP, HSTROPN #### [facility] [address] [place] [address] Dr. Fabrizio Pascual LYMPHM% 9.0 % Critically low 20.5-60.0 [facility] Comment on above: Performed By: #### B CEILING INSULATION BLOWER, BMP, HSTROPN #### [facility] [address] [place] [address] Dr. Fabrizio Pascual MCH 28.1 pg Normal 25.9-34.0 [facility] Comment on above: Performed By: #### B CEILING INSULATION BLOWER, BMP, HSTROPN #### [facility] [address] [place] [address] Dr. Fabrizio Pascual MCHC 32.2 g/dl Normal 29.9-35.2 [facility] Comment on above: Performed By: #### B CEILING INSULATION BLOWER, BMP, HSTROPN #### [facility] [address] [place] [address] Dr. Fabrizio Pascual MCV 87.2 fL Normal 80.0-94.0 [facility] Comment on above: Performed By: #### B CEILING INSULATION BLOWER, BMP, HSTROPN #### [facility] [address] [place] [address] Dr. Fabrizio Pascual METAMYELOCYTE # Normal [facility] Comment on above: Performed By: #### B CEILING INSULATION BLOWER, BMP, HSTROPN #### [facility] [address] [place] [address] Dr. Fabrizio Pascual METAMYELOCYTE % Normal [facility] Comment on above: Performed By: #### B CEILING INSULATION BLOWER, BMP, HSTROPN #### [facility] [address] [place] [address] Dr. Fabrizio Pascual MONOM# 0.82 103/ul Critically high 0.30-0.80 [facility] Comment on above: Performed By: #### B CEILING INSULATION BLOWER, BMP, HSTROPN #### [facility] [address] [place] [address] Dr. Fabrizio Pascual MONOM% 11.0 % Normal 1.7-12.0 [facility] Comment on above: Performed By: #### B CEILING INSULATION BLOWER, BMP, HSTROPN #### [facility] [address] [place] [address] Dr. Fabrizio Pascual MPV 9.2 fL Critically low 9.5-13.5 [facility] Comment on above: Performed By: #### B CEILING INSULATION BLOWER, BMP, HSTROPN #### [facility] [address] [place] [address] Dr. Fabrizio Pascual MYELOCYTE # Normal [facility] Comment on above: Performed By: #### B CEILING INSULATION BLOWER, BMP, HSTROPN #### [facility] [address] [place] [address] Dr. Fabrizio Pascual MYELOCYTE % Normal [facility] Comment on above: Performed By: #### B CEILING INSULATION BLOWER, BMP, HSTROPN #### [facility] [address] [place] [address] Dr. Fabrizio Pascual NRBC Normal [facility] Comment on above: Performed By: #### B CEILING INSULATION BLOWER, BMP, HSTROPN #### [facility] [address] [place] [address] Dr. Fabrizio Pascual PLT 272 103/ul Normal 150-450 [facility] Comment on above: Performed By: #### B CEILING INSULATION BLOWER, BMP, HSTROPN #### [facility] [address] [address] [address] Fabrizio Pascual RBC 4.45 106/ul Critically low 4.70-6.10 [facility] Comment on above: Performed By: #### B CEILING INSULATION BLOWER, BMP, HSTROPN #### [facility] [address] [place] [address] Dr. Fabrizio Pascual RDW 13.7 % Normal 11.0-15.0 [facility] Comment on above: Performed By: #### B CEILING INSULATION BLOWER, BMP, HSTROPN #### [facility] [address] [place] [address] Dr. Fabrizio Pascual SEG # 5.85 103/ul Normal 1.40-6.50 [facility] Comment on above: Performed By: #### B CEILING INSULATION BLOWER, BMP, HSTROPN #### [facility] [address] [place] [address] Dr. Fabrizio Pascual SEG % 78.0 % Critically high 43.0-75.0 [facility] Comment on above: Performed By: #### B CEILING INSULATION BLOWER, BMP, HSTROPN #### [facility] [address] [place] [address] Dr. Fabrizio Pascual WBC 7.5 103/ul Normal 4.0-11.0 [facility] Comment on above: Performed By: #### B CEILING INSULATION BLOWER, BMP, HSTROPN #### [facility] [address] [place] [address] Dr. Fabrizio Pascual PROF CHEM 8 (BAS METB)on Anion gap [Moles/Vol] 10.1 mmol/L Normal Th e [facility] Comment on above: Performed By: #### U YADIRA, BMP, TSH #### [facility] [address] [place] [address] Dr. Fabrizio Pascual Calcium [Mass/Vol] 9.0 mg/dL Normal 8.5-10.1 [facility] Comment on above: Performed By: #### U YADIRA, BMP, TSH #### [facility] [address] [address] [address] Fabrizio Pascual Chloride [Moles/Vol] 99 mmol/L Normal 98-107 [facility] Comment on above: Performed By: #### U YADIRA, BMP, TSH #### [facility] [address] [address] [address] Fabrizio Pascual CO2 [Moles/Vol] 28.9 mmol/L Normal 21.0-32.0 [facility] Comment on above: Performed By: #### U YADIRA, BMP, TSH #### [facility] [address] [place] [address] Dr. Fabrizio Pascual Creatinine [Mass/Vol] 1.00 mg/dL Normal 0.70-1.30 [facility] Comment on above: Performed By: #### U YADIRA, BMP, TSH #### [facility] [address] [place] [address] Dr. Fabrizio Pascual EGFR-AF MOZAMBICAN >60 Normal >=60 [facility] Comment on above: Performed By: #### U YADIRA, BMP, TSH #### [facility] [address] [place] [address] Dr. Fabrizio Pascual EGFR-NON AF MOZAMBICAN >60 Normal >=60 [facility] Comment on above: Performed By: #### U YADIRA, BMP, TSH #### [facility] [address] [address] [address] Fabrizio Pascual Glucose [Mass/Vol] 111 mg/dL Critically high 74-106 T [facility] Comment on above: Performed By: #### U YADIRA, BMP, TSH #### [facility] [address] [place] [address] Dr. Fabrizio Pascual Potassium [Moles/Vol] 4.0 mmol/L Normal 3.5-5.1 [facility] Comment on above: Performed By: #### U YADIRA, BMP, TSH #### [facility] [address] [place] [address] Dr. Fabrizio Pascual Sodium [Moles/Vol] 134 mmol/L Critically low 136-145 Th [facility] Comment on above: Performed By: #### U YADIRA, BMP, TSH #### [facility] [address] [place] [address] Dr. Fabrizio Pascual Urea nitrogen [Mass/Vol] 16.0 mg/dL Normal 7.0-18.0 [facility] Comment on above: Performed By: #### U YADIRA, BMP, TSH #### [facility] [address] [place] [address] Dr. Fabrizio Pascual Urea nitrogen/Creatinine [Mass ratio] 16.0 mg/mg Normal [facility] Comment on above: Performed By: #### U YADIRAIVANA, TSH #### [facility] [address] [place] [address] Dr. Fabrizio Pascual SODIUM RANDOM URINEon 2022 Sodium (U) [Moles/Vol] 78 mmol/L Normal 30-90 Th [facility] Comment on above: Performed By: #### N AU #### [facility] [address] [place] [address] Dr. Fabrizio Pascual US TAHIR DOP LEG LTon 05-16-19 23 US TAHIR DOP LEG LT EXAMINATION: US TAHIR DOP LEG LT HISTORY: Swelling COMPARISON: No relevant comparison available. TECHNIQUE: FINDINGS: Region: left leg Thrombus: None Flow: Normal Compressibility: Normal Augmentation: Normal Other: Subq edema IMPRESSION: No deep or superficial vein thrombus *Exam performed in accordance with [facility] practice guidelines- Peripheral venous ultrasound, August 08, 2009. Electronically authenticated by: GREGG QUIROS Date: 2022-05-16 15:34 Normal [facility] BNPon 04-19-2022 Natriuretic peptide B (Bld) [Mass/Vol] 719.0 pg/mL Normal <=900.0 [facility] Comment on above: Performed By: #### B CEILING INSULATION BLOWER, BMP, HSTROPN #### [facility] [address] [place] [address] Dr. Fabrizio Pascual CBC AUTO DIFFon 04-19-2022 BASO # 0.0 103/ul Normal 0.0-0.1 [facility] Comment on above: Performed By: #### C BC #### [facility] [address] [address] [address] Fabrizio Pascual Basophils/100 WBC (Bld) 0.2 % Normal 0.2-2.0 [facility] Comment on above: Performed By: #### C BC #### [facility] [address] [address] [address] Fabrizio Pascual EO # 0.1 103/ul Normal 0.0-0.7 [facility] Comment on above: Performed By: #### C BC #### [facility] [address] [address] [address] Fabrizio Pascual Eosinophils/100 WBC (Bld) 1.0 % Normal 0.9-7.0 [facility] Comment on above: Performed By: #### C BC #### [facility] [address] [place] [address] Dr. Fabrizio Pascual Erythrocyte distribution width (RBC) [Ratio] 13.1 % Normal 11.0-15.0 [facility] Comment on above: Performed By: #### C BC #### [facility] [address] [address] [address] Fabrizio Pascual Hematocrit (Bld) [Volume fraction] 32.6 % Critically low 42.0-54.0 [facility] Comment on above: Performed By: #### C BC #### [facility] [address] [place] [address] Dr. Fabrizio Pascual Hemoglobin (Bld) [Mass/Vol] 10.9 g/dL Critically low 14.0-18.0 [facility] Comment on above: Performed By: #### C BC #### [facility] [address] [address] [address] Fabrizio Pascual IG # 0.06 10e3/ul Critically high 0.00-0.03 [facility] Comment on above: Performed By: #### C BC #### [facility] [address] [address] [address] Fabrizio Pascual IG % 0.6 % Critically high 0.0-0.5 [facility] Comment on above: Performed By: #### C BC #### [facility] [address] [place] [address] Dr. Fabrizio Pascual LYMPH # 0.6 103/ul Critically low 1.2-3.8 [facility] Comment on above: Performed By: #### C BC #### [facility] [address] [place] [address] Dr. Fabrizio Pascual Lymphocytes/100 WBC (Bld) 5.8 % Critically low 20.5-60.0 [facility] Comment on above: Performed By: #### C BC #### [facility] [address] [place] [address] Dr. Fabrizio Pascual MANUAL DIFF REQ NO Normal [facility] Comment on above: Performed By: #### C BC #### [facility] [address] [place] [address] Dr. Fabrizio Pascual MCH (RBC) [Entitic mass] 29.3 pg Normal 25.9-34.0 [facility] Comment on above: Performed By: #### C BC #### [facility] [address] [place] [address] Dr. Fabrizio Pascual MCHC (RBC) [Mass/Vol] 33.4 g/dL Normal 29.9-35.2 [facility] Comment on above: Performed By: #### C BC #### [facility] [address] [place] [address] Dr. Fabrizio Pascual MCV (RBC) [Entitic vol] 87.6 fL Normal 80.0-94.0 [facility] Comment on above: Performed By: #### C BC #### [facility] [address] [place] [address] Dr. Fabrizio Pascual MONO # 1.4 103/ul Critically high 0.3-0.8 [facility] Comment on above: Performed By: #### C BC #### [facility] [address] [place] [address] Dr. Fabrizio Pascual Monocytes/100 WBC (Bld) 13.4 % Critically high 1.7-12.0 [facility] Comment on above: Performed By: #### C BC #### [facility] [address] [place] [address] Dr. Fabrizio Pascual NEUT # 8.4 103/ul Critically high 1.4-6.5 [facility] Comment on above: Performed By: #### C BC #### [facility] [address] [place] [address] Dr. Fabrizio Pascual Neutrophils/100 WBC (Bld) 79.0 % Critically high 43.0-75.0 [facility] Comment on above: Performed By: #### C BC #### [facility] [address] [place] [address] Dr. Fabrizio Pascual Platelet mean volume (Bld) [Entitic vol] 9.1 fL Critically low 9.5-13.5 [facility] Comment on above: Performed By: #### C BC #### [facility] [address] [place] [address] Dr. Fabrizio Pascual PLT 347 103/ul Normal 150-450 [facility] Comment on above: Performed By: #### C BC #### [facility] [address] [place] [address] Dr. Fabrizio Pascual RBC 3.72 106/ul Critically low 4.70-6.10 [facility] Comment on above: Performed By: #### C BC #### [facility] [address] [place] [address] Dr. Fabrizio Pascual WBC 10.7 103/ul Normal 4.0-11.0 [facility] Comment on above: Performed By: #### C BC #### [facility] [address] [place] [address] Dr. Fabrizio Pascual Covid-19 PCR ([facility])on SARS-CoV-2 (COVID-19) RNA HOWIE+probe Ql (Unsp spec) Not detected Normal NOT DETECTED [facility] Comment on above: Result Comment: When diagnostic [...] for this test is supported by the [place] of [employer] and Human Service's declaration that [...] used). Performed By: #### C VDTBH #### [facility] [address] [place] [address] Dr. Fabrizio Pascual INFLUENZA A AND B AGon 04-19 [facility] SEE BELOW Normal [facility] Comment on above: Result Comment: Nega tive for Flu A protein angiten. Infection due to Flu A cannot be ruled out. Flu A angiten in the sample may be below the detection limit of the test. Performed By: #### U YADIRA, BMP, TSH #### [facility] [address] [place] [address] Dr. Fabrizio Pascual INFLUBNEG SEE BELOW Normal [facility] Comment on above: Result Comment: Nega tive for Flu B protein antigen. Infection due to Flu B cannot be ruled out. Flu B antigen in the sample may be below the detection limit of the test. Performed By: #### U YADIRA, BMP, TSH #### [facility] [address] [place] [address] Dr. Fabrizio Pascual INFLUENZA A AG Negative Normal NEGATIVE SEE COMMENT [facility] Comment on above: Performed By: #### U YADIRA, BMP, TSH #### [facility] [address] [place] [address] Dr. Fabrizio Pascual INFLUENZA B AG Negative Normal NEGATIVE SEE COMMENT [facility] Comment on above: Performed By: #### U YADIRA, BMP, TSH #### [facility] [address] [place] [address] Dr. Fabrizio Pascual INTERNAL CONTROLS Within Normal Limits Normal Wi thin Normal Limits [facility] Comment on above: Performed By: #### U YADIRA, BMP, TSH #### [facility] [address] [place] [address] Dr. Fabrizio Pascual PROF CHEM 8 (BAS METB)on Anion gap [Moles/Vol] 10.8 mmol/L Normal Th e [facility] Comment on above: Performed By: #### B CEILING INSULATION BLOWER, BMP, HSTROPN #### [facility] [address] [place] [address] Dr. Fabrizio Pascual Calcium [Mass/Vol] 8.8 mg/dL Normal 8.5-10.1 [facility] Comment on above: Performed By: #### B CEILING INSULATION BLOWER, BMP, HSTROPN #### [facility] [address] [place] [address] Dr. Fabrizio Pascual Chloride [Moles/Vol] 94 mmol/L Critically low 98-107 [facility] Comment on above: Performed By: #### B CEILING INSULATION BLOWER, BMP, HSTROPN #### [facility] [address] [place] [address] Dr. Fabrizio Pascual CO2 [Moles/Vol] 27.7 mmol/L Normal 21.0-32.0 [facility] Comment on above: Performed By: #### B CEILING INSULATION BLOWER, BMP, HSTROPN #### [facility] [address] [place] [address] Dr. Fabrizio Pascual Creatinine [Mass/Vol] 1.09 mg/dL Normal 0.70-1.30 [facility] Comment on above: Performed By: #### B CEILING INSULATION BLOWER, BMP, HSTROPN #### [facility] [address] [place] [address] Dr. Fabrizio Pascula EGFR-AF MOZAMBICAN >60 Normal >=60 [facility] Comment on above: Performed By: #### B CEILING INSULATION BLOWER, BMP, HSTROPN #### [facility] [address] [place] [address] Dr. Fabrizio Pascual EGFR-NON AF MOZAMBICAN >60 Normal >=60 [facility] Comment on above: Performed By: #### B CEILING INSULATION BLOWER, BMP, HSTROPN #### [facility] [address] [address] [address] Fabrizio Pascual Glucose [Mass/Vol] 103 mg/dL Normal 74-106 [facility] Comment on above: Performed By: #### B CEILING INSULATION BLOWER, BMP, HSTROPN #### [facility] [address] [address] [address] Fabrizio Pascual Potassium [Moles/Vol] 3.5 mmol/L Normal 3.5-5.1 [facility] Comment on above: Performed By: #### B CEILING INSULATION BLOWER, BMP, HSTROPN #### [facility] [address] [address] [address] Fabrizio Pascual Sodium [Moles/Vol] 129 mmol/L Critically low 136-145 Th [facility] Comment on above: Performed By: #### B CEILING INSULATION BLOWER, BMP, HSTROPN #### [facility] [address] [place] [address] Dr. Fabrizio Pascual Urea nitrogen [Mass/Vol] 15.0 mg/dL Normal 7.0-18.0 [facility] Comment on above: Performed By: #### B CEILING INSULATION BLOWER, BMP, HSTROPN #### [facility] [address] [address] [address] Fabrizio Pascual Urea nitrogen/Creatinine [Mass ratio] 13.8 mg/mg Normal [facility] Comment on above: Performed By: #### B CEILING INSULATION BLOWER, BMP, HSTROPN #### [facility] [address] [place] [address] Dr. Fabrizio Pascual TROPONIN, HIGH SENSITIVITYon 04-19-2022 HSTROP 8.5 pg/mL Normal 4.0-76.1 [facility] Comment on above: Result Comment: CUT- OFF POINTS HAVE BEEN ESTABLISHED BASED ON THE FOURTH UNIVERSAL DEFINITIONS OF MYOCARDIAL INFARCTION. THE UPPER REFERENCE LIMIT (URL) OF TROPONIN, DEFINED THE 99TH PERCENTILE OF cTnI DISTRIBUTION IN A REFERENCE POPULATION, HAS BEEN CONFIRMED THE DECISION THRESHOLD FOR [place] DIAGNOSIS. Performed By: #### B CEILING INSULATION BLOWER, BMP, HSTROPN #### [facility] [address] [place] [address] Dr. Fabrizio Pascual XR CHEST 1 Von [...] by: JAYDEN VALENTINE Date: 2022-04-19 17:36 Normal [facility] MRI BRAIN WO W CONon 022 MRI [...] CORINNE OCHOA Date: 2021-12-14 06:55 Normal [facility] CT CHEST WO CONon 12-13-2021 CT CHEST [...] by: CORINNE OCHOA Date: 2021-12-13 18:10 Normal [facility] OSMOLALITYon 12-02-2021 Osmolality [Osmolality] 275 mosm/kg Critically low 280-301 [facility] Comment on above: Performed By: #### O SMO #### [facility] [address] [place] [address] Dr. Fabrizio Pascual CORTISOLon 12-01-2021 Cortisol 1.2 ug/dL Normal [facility] Comment on above: Result Comment: Delio isol AM 6.2 - 19.4 Cortisol PM 2.3 - 11.9 Performed By: #### U YADIRA, BMP, TSH #### [facility] [address] [place] [address] Dr. Fabrizio Pascual OSMOLALITY URINEon 2 Osmolality, Urine 236 mOsmol/kg Normal [facility] Comment on above: Result Comment: 24 h r : 300 - 900 Random: 50 - 1400 After 12hr fluid restriction: >850 Performed By: #### U YADIRA, BMP, TSH #### [facility] [address] [address] [address] Fabrizio Pascual PROF CHEM 8 (BAS METB)on Anion gap [Moles/Vol] 10.1 mmol/L Normal [facility] Comment on above: Performed By: #### U YADIRA, BMP, TSH #### [facility] [address] [place] [address] Dr. Fabrizio Pascual Calcium [Mass/Vol] 8.8 mg/dL Normal 8.5-10.1 [facility] Comment on above: Performed By: #### U YADIRA, BMP, TSH #### [facility] [address] [place] [address] Dr. Fabrizio Pascual Chloride [Moles/Vol] 97 mmol/L Critically low 98-107 [facility] Comment on above: Performed By: #### U YADIRA, BMP, TSH #### [facility] [address] [place] [address] Dr. Fabrizio Pascual CO2 [Moles/Vol] 28.9 mmol/L Normal 21.0-32.0 [facility] Comment on above: Performed By: #### U YADIRA, BMP, TSH #### [facility] [address] [place] [address] Dr. Fabrizio Pascual Creatinine [Mass/Vol] 1.08 mg/dL Normal 0.70-1.30 [facility] Comment on above: Performed By: #### U YADIRA, BMP, TSH #### [facility] [address] [place] [address] Dr. Fabrizio Pascual EGFR-AF MOZAMBICAN >60 Normal >=60 [facility] Comment on above: Performed By: #### U YADIRA, BMP, TSH #### [facility] [address] [place], [place] [id number] Dr. Fabrizio Pascual EGFR-NON AF MOZAMBICAN >60 Normal >=60 [facility] Comment on above: Performed By: #### U YADIRA, BMP, TSH #### [facility] [address] [place] [address] Dr. Fabrizio Pascual Glucose [Mass/Vol] 106 mg/dL Normal 74-106 [facility] Comment on above: Performed By: #### U YADIRA, BMP, TSH #### [facility] [address] [place] [address] Dr. Fabrizio Pascual Potassium [Moles/Vol] 4.0 mmol/L Normal 3.5-5.1 [facility] Comment on above: Performed By: #### U YADIRA, BMP, TSH #### [facility] [address] [place] [address] Dr. Fabrizio Pascual Sodium [Moles/Vol] 132 mmol/L Critically low 136-145 [facility] Comment on above: Performed By: #### U YADIRA, BMP, TSH #### [facility] [address] [place] [address] Dr. Fabrizio Pascual Urea nitrogen [Mass/Vol] 18.0 mg/dL Normal 7.0-18.0 [facility] Comment on above: Performed By: #### U YADIRA, BMP, TSH #### [facility] [address] [place] [address] Dr. Fabrizio Pascual Urea nitrogen/Creatinine [Mass ratio] 16.7 mg/mg Normal [facility] Comment on above: Performed By: #### U YADIRA, BMP, TSH #### [facility] [address] [place] [address] Dr. Fabrizio Pascual SODIUM RANDOM URINEon 2021 Sodium (U) [Moles/Vol] 82 mmol/L Normal 30-90 [facility] Comment on above: Performed By: #### B CEILING INSULATION BLOWER, BMP, HSTROPN #### [facility] [address] [place] [address] Dr. Fabrizio Pascual TSHon 11-30-2021 TSH 1.576 uIU/mL Normal 0.358-3.74 0 [facility] Comment on above: Performed By: #### U YADIRA, BMP, TSH #### [facility] [address] [address] [address] Fabrizio Pascual URIC ACID SERUMon 11-30-2021 Urate [Mass/Vol] 7.2 mg/dL Normal 3.5-7.2 [facility] Comment on above: Performed By: #### U YADIRA, BMP, TSH #### [facility] [address] [address] [address] Fabrizio Pascual PROF CHEM 8 (BAS METB)on Anion gap [Moles/Vol] 14.8 mmol/L Normal Th e [facility] Comment on above: Performed By: #### U YADIRA, BMP, TSH #### [facility] [address] [place] [address] Dr. Fabrizio Pascual Calcium [Mass/Vol] 9.1 mg/dL Normal 8.5-10.1 [facility] Comment on above: Performed By: #### U YADIRA, BMP, TSH #### [facility] [address] [address] [address] Fabrizio Pascual Chloride [Moles/Vol] 91 mmol/L Critically low 98-107 [facility] Comment on above: Performed By: #### U YADIRA, BMP, TSH #### [facility] [address] [address] [address] Fabrizio Pascual CO2 [Moles/Vol] 22.2 mmol/L Normal 21.0-32.0 [facility] Comment on above: Performed By: #### U YADIRA, BMP, TSH #### [facility] [address] [place] [address] Dr. Fabrizio Pascual Creatinine [Mass/Vol] 0.97 mg/dL Normal 0.70-1.30 [facility] Comment on above: Performed By: #### U YADIRA, BMP, TSH #### [facility] [address] [address] [address] Fabrizio Pascual EGFR-AF MOZAMBICAN >60 Normal >=60 [facility] Comment on above: Performed By: #### U YADIRA, BMP, TSH #### [facility] [address] [address] [address] Fabrizio Pascual EGFR-NON AF MOZAMBICAN >60 Normal >=60 [facility] Comment on above: Performed By: #### U YADIRA, BMP, TSH #### [facility] [address] [address] [address] Fabrizio Pascual Glucose [Mass/Vol] 144 mg/dL Critically high 74-106 T [facility] Comment on above: Performed By: #### U YADIRA, BMP, TSH #### [facility] [address] [address] [address] Fabrizio Pascual Potassium [Moles/Vol] 4.0 mmol/L Normal 3.5-5.1 [facility] Comment on above: Performed By: #### U YADIRA, BMP, TSH #### [facility] [address] [address] [address] Fabrizio Pascual Sodium [Moles/Vol] 124 mmol/L Critically low 136-145 Th [facility] Comment on above: Performed By: #### U YADIRA, BMP, TSH #### [facility] [address] [address] [address] Fabrizio Pascual Urea nitrogen [Mass/Vol] 18.0 mg/dL Normal 7.0-18.0 [facility] Comment on above: Performed By: #### U YADIRA, BMP, TSH #### [facility] [address] [address] [address] Fabrizio Pascual Urea nitrogen/Creatinine [Mass ratio] 18.6 mg/mg Normal [facility] Comment on above: Performed By: #### U YADIRA, BMP, TSH #### [facility] [address] [address] [address] Fabrizio Pascual BNPon 11-15-2021 Natriuretic peptide B (Bld) [Mass/Vol] 1143.0 pg/mL Critically high <=900.0 [facility] Comment on above: Performed By: #### U YADIRA, BMP, TSH #### [facility] [address] [address] [address] Fabrizio Pascual CBC W MANUAL DIFFon 07-04-20 22 ATYPICAL LYMPH # Normal [facility] Comment on above: Performed By: #### U YADIRA, BMP, TSH #### [facility] [address] [place] [address] Dr. Fabrizio Pascual ATYPICAL LYMPH % Normal [facility] Comment on above: Performed By: #### U YADIRA, BMP, TSH #### [facility] [address] [place] [address] Dr. Fabrizio Pascual BAND # 0.0 103/ul Normal 0.0-0.3 [facility] Comment on above: Performed By: #### U YADIRA, BMP, TSH #### [facility] [address] [place] [address] Dr. Fabrizio Pascual BAND % 0 % Normal 0-5 [facility] Comment on above: Performed By: #### U YADIRA, BMP, TSH #### [facility] [address] [place] [address] Dr. Fabrizio Pascual BASOM # 0.00 103/ul Normal 0.00-0.10 [facility] Comment on above: Performed By: #### U YADIRA, BMP, TSH #### [facility] [address] [place] [address] Dr. Fabrizio Pascual BASOM % 0.0 % Critically low 0.2-2.0 [facility] Comment on above: Performed By: #### U YADIRA, BMP, TSH #### [facility] [address] [place] [address] Dr. Fabrizio Pascual BLAST # Normal [facility] Comment on above: Performed By: #### U YADIRA, BMP, TSH #### [facility] [address] [place] [address] Dr. Fabrizio Pascual BLAST % Normal [facility] Comment on above: Performed By: #### U YADIRA, BMP, TSH #### [facility] [address] [place] [address] Dr. Fabrizio Pascual CORRECTED WBC Normal 4.0-11.0 [facility] Comment on above: Performed By: #### U YADIRA, BMP, TSH #### [facility] [address] [place] [address] Dr. Fabrizio Pascual EOS # 0.24 103/ul Normal 0.00-0.70 [facility] Comment on above: Performed By: #### U YADIRA, BMP, TSH #### [facility] [address] [address] [address] Fabrizio Pascual EOS% 2.0 % Normal 0.9-7.0 [facility] Comment on above: Performed By: #### U YADIRA, BMP, TSH #### [facility] [address] [address] [address] Fabrizio Pascual HCT 37.1 % Critically low 42.0-54.0 [facility] Comment on above: Performed By: #### U YADIRA, BMP, TSH #### [facility] [address] [place] [address] Dr. Fabrizio Pascual HGB 12.3 g/dl Critically low 14.0-18.0 [facility] Comment on above: Performed By: #### U YADIRA, BMP, TSH #### [facility] [address] [address] [address] Fabrizio Pascual LYMPHM # 0.60 103/ul Critically low 1.20-3.80 [facility] Comment on above: Performed By: #### U YADIRA, BMP, TSH #### [facility] [address] [place] [address] Dr. Fabrizio Pascual LYMPHM% 5.0 % Critically low 20.5-60.0 [facility] Comment on above: Performed By: #### U YADIRA, BMP, TSH #### [facility] [address] [address] [address] Fabrizio Pascual MCH 29.3 pg Normal 25.9-34.0 [facility] Comment on above: Performed By: #### U YADIRA, BMP, TSH #### [facility] [address] [place] [address] Dr. Fabrizio Pascual MCHC 33.2 g/dl Normal 29.9-35.2 [facility] Comment on above: Performed By: #### U YADIRA, BMP, TSH #### [facility] [address] [place] [address] Dr. Fabrizio Pascual MCV 88.3 fL Normal 80.0-94.0 [facility] Comment on above: Performed By: #### U YADIRA, BMP, TSH #### [facility] [address] [place] [address] Dr. Fabrizio Pascual METAMYELOCYTE # Normal [facility] Comment on above: Performed By: #### U YADIRA, BMP, TSH #### [facility] [address] [address] [address] Fabrizio Pascual METAMYELOCYTE % Normal [facility] Comment on above: Performed By: #### U YADIRA, BMP, TSH #### [facility] [address] [place] [address] Dr. Fabrizio Pascual MONOM# 0.60 103/ul Normal 0.30-0.80 [facility] Comment on above: Performed By: #### U YADIRA, BMP, TSH #### [facility] [address] [place] [address] Dr. Fabrizio Pascual MONOM% 5.0 % Normal 1.7-12.0 [facility] Comment on above: Performed By: #### U YADIRA, BMP, TSH #### [facility] [address] [place] [address] Dr. Fabrizio Pascual MPV 9.2 fL Critically low 9.5-13.5 [facility] Comment on above: Performed By: #### U YADIRA, BMP, TSH #### [facility] [address] [place] [address] Dr. Fabrizio Pascual MYELOCYTE # Normal [facility] Comment on above: Performed By: #### U YADIRA, BMP, TSH #### [facility] [address] [place] [address] Dr. Fabrizio Pascual MYELOCYTE % Normal [facility] Comment on above: Performed By: #### U YADIRA, BMP, TSH #### [facility] [address] [place] [address] Dr. Fabrizio Pascual NRBC Normal [facility] Comment on above: Performed By: #### U YADIRA, BMP, TSH #### [facility] [address] [place] [address] Dr. Fabrizio Pascual PLT 227 103/ul Normal 150-450 [facility] Comment on above: Performed By: #### U YADIRA, BMP, TSH #### [facility] [address] [place] [address] Dr. Fabrizio Pascual RBC 4.20 106/ul Critically low 4.70-6.10 [facility] Comment on above: Performed By: #### U YADIRA, BMP, TSH #### [facility] [address] [place] [address] Dr. Fabrizio Pascual RDW 14.0 % Normal 11.0-15.0 [facility] Comment on above: Performed By: #### U YADIRA, BMP, TSH #### [facility] [address] [place] [address] Dr. Fabrizio Pascual SEG # 10.65 103/ul Critically high 1.40-6.50 [facility] Comment on above: Performed By: #### U YADIRA, BMP, TSH #### [facility] [address] [place] [address] Dr. Fabrizio Pascual SEG % 88.0 % Critically high 43.0-75.0 [facility] Comment on above: Performed By: #### U YADIRA, BMP, TSH #### [facility] [address] [place] [address] Dr. Fabrizio Pascual WBC 12.1 103/ul Critically high 4.0-11.0 [facility] Comment on above: Performed By: #### U YADIRA, BMP, TSH #### [facility] [address] [place] [address] Dr. Fabrizio Pascual CULTURE BLOODon 11-15-2021 Microscopic examination of blood, culture Culture Observations: NO GROWTH AT 5 DAYS. Normal [facility] Comment on above: Performed By: #### U YADIRA, BMP, TSH #### [facility] [address] [place] [address] Dr. Fabrizio Pascual Microscopic examination of blood, culture Culture Observations: NO GROWTH AT 5 DAYS. Normal [facility] Comment on above: Performed By: #### U YADIRA, BMP, TSH #### [facility] [address] [place] [address] Dr. Fabrizio Pascual Covid-19 PCR (CVDTB)on SARS-CoV-2 (COVID-19) RNA HOWIE+probe Ql (Unsp spec) Not detected Normal NOT DETECTED [facility] Comment on above: Result Comment: When diagnostic [...] for this test is supported by the [place] of Health and Human Service's declaration that [...] By: #### U YADIRA, BMP, TSH #### [facility] [address] [place] [address] Dr. Fabrizio Pascual LACTATE/LACTIC ACIDon 2021 Lactate [Moles/Vol] 1.2 mmol/L Normal 0.4-1.9 [facility] Comment on above: Performed By: #### B CEILING INSULATION BLOWER, BMP, HSTROPN #### [facility] [address] [place] [address] Dr. Fabrizio Pascual PROF CHEM 8 (BAS METB)on Anion gap [Moles/Vol] 13.7 mmol/L Normal e [facility] Comment on above: Performed By: #### U YADIRA, BMP, TSH #### [facility] [address] [place] [address] Dr. Fabrizio Pascual Calcium [Mass/Vol] 8.8 mg/dL Normal 8.5-10.1 [facility] Comment on above: Performed By: #### U YADIRA, BMP, TSH #### [facility] [address] [address] [address] Fabrizio Pascual Chloride [Moles/Vol] 91 mmol/L Critically low 98-107 [facility] Comment on above: Performed By: #### U YADIRA, BMP, TSH #### [facility] [address] [address] [address] Fabrizio Pascual CO2 [Moles/Vol] 25.0 mmol/L Normal 21.0-32.0 [facility] Comment on above: Performed By: #### U YADIRA, BMP, TSH #### [facility] [address] [address] [address] Fabrizio Pascual Creatinine [Mass/Vol] 0.97 mg/dL Normal 0.70-1.30 [facility] Comment on above: Performed By: #### U YADIRA, BMP, TSH #### [facility] [address] [place] [address] Dr. Fabrizio Pascual EGFR-AF MOZAMBICAN >60 Normal >=60 [facility] Comment on above: Performed By: #### U YADIRA, BMP, TSH #### [facility] [address] [address] [address] Fabrizio Pascual EGFR-NON AF MOZAMBICAN >60 Normal >=60 [facility] Comment on above: Performed By: #### U YADIRA, BMP, TSH #### [facility] [address] [address] [address] Fabrizio Pascual Glucose [Mass/Vol] 85 mg/dL Normal 74-106 [facility] Comment on above: Performed By: #### U YADIRA, BMP, TSH #### [facility] [address] [address] [address] Fabrizio Pascual Potassium [Moles/Vol] 3.7 mmol/L Normal 3.5-5.1 [facility] Comment on above: Performed By: #### U YADIRA, BMP, TSH #### [facility] [address] [address] [address] Fabrizio Pascual Sodium [Moles/Vol] 126 mmol/L Critically low 136-145 [facility] Comment on above: Performed By: #### U YADIRA, BMP, TSH #### [facility] [address] [place], [place] [address] Dr. Fabrizio Pascual Urea nitrogen [Mass/Vol] 12.0 mg/dL Normal 7.0-18.0 [facility] Comment on above: Performed By: #### U YADIRA, BMP, TSH #### [facility] [address] [place], [place] [address] Dr. Fabrizio Pascual Urea nitrogen/Creatinine [Mass ratio] 12.4 mg/mg Normal [facility] Comment on above: Performed By: #### U YADIRA, BMP, TSH #### [facility] [address] [address] [address] Fabrizio Pascual TROPONIN, HIGH SENSITIVITYon 11-15-2021 HSTROP 8.6 pg/mL Normal 4.0-76.1 [facility] Comment on above: Result Comment: CUT- OFF POINTS HAVE BEEN ESTABLISHED BASED ON THE FOURTH UNIVERSAL DEFINITIONS OF MYOCARDIAL INFARCTION. THE UPPER REFERENCE LIMIT (URL) OF TROPONIN, DEFINED THE 99TH PERCENTILE OF cTnI DISTRIBUTION IN A REFERENCE POPULATION, HAS BEEN CONFIRMED THE DECISION THRESHOLD FOR [place] DIAGNOSIS. Performed By: #### U YADIRA, BMP, TSH #### [facility] [address] [address] [address] Fabrizio Pascual XR CHEST 1 Von [...] 2. No new findings. Electronically authenticated by: DECLAN TRIPLETT Date: 2021-11-15 19:25 Normal [facility] COVID-19 Positive/NegativeOr dered By: Gregg Hilliard on 10-22-2021 SARS-CoV-2 (COVID-19) N gene HOWIE+probe Ql (Resp) Negative Negative [facility] Comment on above: Testing for SARS-CoV -2 by RT-PCR This test was developed and its performance characteristics determined by [employer] ([employer]) and validated at the [facility]. This test has not been FDA cleared [...] direction and in the presence of Dr. Steven Alvares MD. All medical record entries made by [...] time of your visit. Chief Complaint MARY MCADAMS is being seen for a 6 month [...] negative for complaint. Vitals Vital Signs Recorded: [id number] 02:51PM Heart Rate77, L Radial Avadoxzb288, LUE, Sitting Ygjgwzufn97, LUE, Sitting Height6 ft Lagvcq661 lb BMI Urnvvnclhk52.87 kg/m2 BSA Calculated2.02 Tobacco Useb) No Fall [...] . Signatures Electronically signed by : Steven Alvares MD; Apr 29 2021 5:34PM EST (Author) Normal [employer] Tobacco Screening.on Fall risk assessment a) No falls within the last year [facility] [employer] rika 250 DO Work Phone: Tobacco use status [facility] b) No [facility] [employer] rika 250 DO Work Phone: MRI IAC WO/Won 12-21-2018 MRI IAC WO/W Patient Name: MARY MCADAMS STUDY: MRI IAC WO/W; 12/21/2018 2:15 pm INDICATION: CPA lesion. COMPARISON: None. ACCESSION NUMBER(S): [id number] ORDERING CLINICIAN: ERIN BAUTISTA TECHNIQUE: T2, FLAIR, [...] signed by: PASHA DEGROOT MD, PHD Normal [facility] Vital Signs Date Time Vital Sign Value Performing Clinician Kathy quigley 03-01-2024 15:58-0400 Diastolic blood pressure 66 mm[Hg] DO Adam Ball Work Phone: [facility] 03-01-2024 15:58-0400 Heart rate 70 /min DO Adam Ball Work Phone: [facility] 03-01-2024 15:58-0400 Inhaled oxygen flow rate 2 L/min DO Adam Ball Work Phone: [facility] 03-01-2024 15:58-0400 Respiratory rate 20 /min DO Adam Ball Work Phone: [facility] 03-01-2024 15:58-0400 SaO2% (BldA) [Mass fraction] 98 % DO Adam Ball Work Phone: [facility] 03-01-2024 15:58-0400 Systolic blood pressure 101 mm[Hg] DO Adam Ball Work Phone: [facility] 03-01-2024 15:25-0400 Body height 182.88 cm DO Adam Ball Work Phone: [facility] 03-01-2024 09:11-0400 Body temperature 97.8 [degF] DO Adam Ball Work Phone: [facility] 03-01-2024 05:30-0400 Body weight 73.4 kg DO Adam Ball Work Phone: [facility] 02-28-2024 23:38-0400 Inhaled oxygen flow rate 2 L/min DO Adam Ball Work Phone: [facility] 02-28-2024 23:38-0400 Respiratory rate 22 /min DO Adam Ball Work Phone: [facility] 02-28-2024 23:38-0400 SaO2% (BldA) [Mass fraction] 94 % DO Adam Ball Work Phone: [facility] 02-28-2024 23:36-0400 Diastolic blood pressure 94 mm[Hg] DO Adam Ball Work Phone: [facility] 02-28-2024 23:36-0400 Heart rate 118 /min DO Adam Ball Work Phone: [facility] 02-28-2024 23:36-0400 Systolic blood pressure 169 mm[Hg] DO Adam Ball Work Phone: [facility] 02-28-2024 21:46-0400 Body height 182.88 cm DO Adam Ball Work Phone: [facility] 02-28-2024 21:46-0400 Body temperature 97.3 [degF] DO Adam Ball Work Phone: [facility] 02-28-2024 21:46-0400 Body weight 77.9 kg DO Adam Ball Work Phone: [facility] 02-20-2024 14:22040 Body height 182.9 cm [facility] 14:220400 Body mass index (BMI) [Ratio] 22.92 kg/m2 Olivia [facility] 02-20-2024 14:22040 Body weight 76.66 kg Olivia [facility] 02-20-2024 14:220400 Diastolic blood pressure 80 mm[Hg] Olivia [facility] 02-20-2024 14:22040 Heart rate 102 /min Olivia [facility] 02-20-2024 14:22-0400 Systolic blood pressure 140 mm[Hg] [facility] 02-14-2024 14:25040 Body height 182.88 cm DO Adam Ball Work Phone: [facility] 02-14-2024 14:250400 Body mass index (BMI) [Ratio] 23.1 kg/m2 DO Adam Ball Work Phone: [facility] 02-14-2024 14:250400 Body weight 77.16 kg DO Adam Ball Work Phone: [facility] 02-14-2024 14:25-0400 Diastolic blood pressure 94 mm[Hg] DO Adam Ball Work Phone: [facility] 02-14-2024 14:25-0400 Heart rate 114 /min DO Adam Ball Work Phone: [facility] 02-14-2024 14:25-0400 Respiratory rate 20 /min DO Adam Ball Work Phone: [facility] 02-14-2024 14:25-0400 Systolic blood pressure 155 mm[Hg] DO Adam Ball Work Phone: [facility] 02-04-2024 16:00-0400 Inhaled oxygen flow rate 2 L/min DO Adam Ball Work Phone: [facility] 02-04-2024 13:35-0400 Heart rate 86 /min DO Adam Ball Work Phone: [facility] 02-04-2024 13:35-0400 Respiratory rate 18 /min DO Adam Ball Work Phone: [facility] 02-04-2024 12:40-0400 Body temperature 97.5 [degF] DO Adam Ball Work Phone: [facility] 02-04-2024 12:40-0400 Diastolic blood pressure 78 mm[Hg] DO Adam Ball Work Phone: [facility] 02-04-2024 12:40-0400 SaO2% (BldA) [Mass fraction] 98 % DO Adam Ball Work Phone: [facility] 02-04-2024 12:40-0400 Systolic blood pressure 119 mm[Hg] DO Adam Ball Work Phone: [facility] 02-04-2024 05:54-0400 Body weight 78.3 kg DO Adam Ball Work Phone: [facility] 02-02-2024 09:43-0400 Body height 182.88 cm DO Adam Ball Work Phone: [facility] 10-13-2023 13:35-0400 Body height 182.9 cm Steven Alvares MD Work Phone: [facility] 10-13-2023 13:35-0400 Body mass index (BMI) [Ratio] 23.06 kg/m2 Steven Alvares MD Work Phone: [facility] 10-13-2023 13:35-0400 Body weight 77.11 kg Steven Alvares MD Work Phone: [facility] 10-13-2023 13:35-0400 Diastolic blood pressure 78 mm[Hg] Steven Alvares MD Work Phone: [facility] 10-13-2023 13:35-0400 Heart rate 72 /min Steven Alvares MD Work Phone: [facility] 10-13-2023 13:35-0400 Systolic blood pressure 138 mm[Hg] Steven Alvares MD Work Phone: [facility] 08-14-2023 15:21-0400 Blood Pressure Location Clinton [facility]MAN [facility] 08-14-2023 15:21-0400 Diastolic blood pressure 74 mm[Hg] Clinton NORMAN [facility] 08-14-2023 15:21-0400 Heart rate 80 /min Clinton NORMAN [facility] 08-14-2023 15:21-0400 Respiratory rate 16 /min Clinton NORMAN [facility] 08-14-2023 15:21-0400 Systolic blood pressure 132 mm[Hg] Clinton NORMAN [facility] 03-01-2023 14:00-0400 Body height 182.88 cm Adam Ball Other [facility] [employer] Other 03-01-2023 14:00-0400 Body mass index (BMI) [Ratio] 23.22 kg/m2 Adam Ball Other [employer] [facility] [employer] Other 03-01-2023 14:00-0400 Body weight 77.66 kg Adam Ball Other [employer] [facility] [employer] Other 03-01-2023 14:00-0400 Diastolic blood pressure 80 mm[Hg] Adam Ball Other [employer] Other 03-01-2023 14:00-0400 Respiratory rate 20 /min Adam Ball Other [employer] Other 03-01-2023 14:00-0400 Systolic blood pressure 145 mm[Hg] Adam Ball Other [employer] Other 11-28-2022 13:10-0400 Blood Pressure Location Clintonsneha NORMAN [facility] 11-28-2022 13:10-0400 Diastolic blood pressure 80 mm[Hg] Clinton NORMAN [facility] 11-28-2022 13:10-0400 Heart rate 68 /min Clintonsneha NORMAN [facility] 11-28-2022 13:10-0400 Respiratory rate 16 /min Clintonsneha NORMAN [facility] 11-28-2022 13:10-0400 Systolic blood pressure 130 mm[Hg] Clinton NORMAN [facility] 09-01-2022 12:30-0400 Body height 182.88 cm Adam Ball Other [employer] Other 09-01-2022 12:30-0400 Body mass index (BMI) [Ratio] 22.97 kg/m2 Adam Ball Other [employer] Other 09-01-2022 12:30-0400 Body weight 76.84 kg Adam Ball Other [employer] Other 09-01-2022 12:30-0400 Diastolic blood pressure 87 mm[Hg] Adam Ball Other [employer] Other 09-01-2022 12:30-0400 Respiratory rate 20 /min Adam Ball Other [facility] [employer] Other 09-01-2022 12:30-0400 Systolic blood pressure 147 mm[Hg] Adam Ball Other [facility] [employer] Other 02-14-2022 12:08-0400 Blood Pressure Location Clinton NORMAN [facility] 02-14-2022 12:08-0400 Diastolic blood pressure 89 mm[Hg] Clinton NORMAN [facility] 02-14-2022 12:08-0400 Heart rate 80 /min Clinton NORMAN [facility] 02-14-2022 12:08-0400 Respiratory rate 16 /min Clinton NORMAN [facility] 02-14-2022 12:08-0400 Systolic blood pressure 139 mm[Hg] Clinton NORMAN [facility] 10-26-2021 11:23-0400 Diastolic blood pressure 95 mm[Hg] DO Adam Ball Work Phone: [facility] 10-26-2021 11:23-0400 Heart rate 62 /min DO Adam Ball Work Phone: [facility] 10-26-2021 11:23-0400 Respiratory rate 20 /min DO Adam Ball Work Phone: [facility] 10-26-2021 11:23-0400 SaO2% (BldA) [Mass fraction] 94 % DO Adam Ball Work Phone: [facility] 10-26-2021 11:23-0400 Systolic blood pressure 134 mm[Hg] DO Adam Ball Work Phone: [facility] 10-26-2021 09:24-0400 Body height 182.88 cm DO Adam Ball Work Phone: [facility] 10-26-2021 09:24-0400 Body mass index (BMI) [Ratio] 23.7 kg/m2 DO Adam Ball Work Phone: [facility] 10-26-2021 09:24-0400 Body temperature 97.5 [degF] DO Adam Ball Work Phone: [facility] 10-26-2021 09:24-0400 Body weight 79.37 kg DO Adam Ball Work Phone: [facility] 2021 12:15-0400 Body height 182.88 cm Nick Muniz Other [facility] [employer] Other 2021 12:15-0400 Body mass index (BMI) [Ratio] 24.27 kg/m2 Christlibbyer Flavio Other [facility] [employer] Other 2021 12:15-0400 Body temperature 97.2 [degF] Christlibbyer Flavio Other [employer] Other 2021 12:15-0400 Body weight 81.19 kg Christlibbyer Flavio Other [employer] Other 2021 12:15-0400 Diastolic blood pressure 88 mm[Hg] Christopher Flavio Other [employer] Other 2021 12:15-0400 Respiratory rate 20 /min Christopher Flavio Other [employer] Other 2021 12:15-0400 SaO2% (BldA) [Mass fraction] 99 % Nick Modino Other [facility] [employer] Other 2021 12:15-0400 Systolic blood pressure 150 mm[Hg] Rustybrendan Palaciodano Other [facility] [employer] Other 08-09-2021 11:58-0400 Blood Pressure Location Clinton NORMAN [facility] 08-09-2021 11:58-0400 Diastolic blood pressure 83 mm[Hg] Clinton NORMAN [facility] 08-09-2021 11:58-0400 Heart rate 64 /min Clinton NORMAN [facility] 08-09-2021 11:58-0400 Respiratory rate 16 /min Clinton NORMAN [facility] 08-09-2021 11:58-0400 Systolic blood pressure 137 mm[Hg] Clinton NORMAN [facility] 04-29-2021 14:51-0500 Body height 182.88 cm Adam Del Valle Work Phone: [facility] [employer] 250 DO Work Phone: 04-29-2021 14:51-0500 Body mass index (BMI) [Ratio] 23.87 kg/m2 Adam Del Valle Work Phone: [facility] [employer] 250 DO Work Phone: 04-29-2021 14:51-0500 Body surface area Derived from formula 2.02 m2 Adam Bird Ball Work Phone: [facility] 250 DO Work Phone: 04-29-2021 14:51-0500 Body weight 79.83 kg Adam Bird Ball Work Phone: [facility] [facility] 250 DO Work Phone: 04-29-2021 14:51-0500 Diastolic blood pressure 88 mm[Hg] Adam Bird Ball Work Phone: [facility] 250 DO Work Phone: 04-29-2021 14:51-0500 Heart rate 77 /min Adam Del Valle Work Phone: [facility] 250 DO Work Phone: 04-29-2021 14:51-0500 Systolic blood pressure 138 mm[Hg] Adam Del Valle Work Phone: [facility] [facility] 250 DO Work Phone: Encounters Encounter Date Encounter Type Care Provider Facility Start: 04-01-2024 ambulatory Clinton Vicente ty:[place] Start: 03-01-2024 Non-patient / Non-visit DO Frandy Del Valle Work Phone: [facility] [facility] Work Phone: Start: 02-29-2024 Non-patient / Non-visit DO Frandy Del Valle Work Phone: [facility] Work Phone: Start: 02-28-2024 End: 03-01-2024 Evaluation and management of inpatient DO Adam Del Valle Work Phone: [facility] [facility] Work Phone: Start: 02-20-2024 End: 02-20-2024 Professional / ancillary services management Olivia Toro LPN [facility] Comment on above: Arrived Start: 02-20-2024 End: 02-20-2024 ambulatory [facility] Ambulatory Start: 02-14-2024 End: 02-14-2024 ambulatory DO Adam Del Valle Work Phone: [facility] Work Phone: Start: 02-14-2024 End: 02-14-2024 Patient encounter procedure DO Adam Del Valle Work Phone: [facility] Work Phone: Start: 02-12-2024 Non-patient / Non-visit DO Frandy perla Ball Work Phone: [facility] Work Phone: Start: 02-05-2024 Non-patient / Non-visit DO Frandy perla Ball Work Phone: [facility] Work Phone: Start: 02-02-2024 End: 02-04-2024 Evaluation and management of inpatient DO Adam Del Valle Work Phone: [facility] [facility] Work Phone: Start: 02-02-2024 Non-patient / Non-visit DO Frandy Del Valle Work Phone: [facility] Work Phone: Start: 02-01-2024 Non-patient / Non-visit DO Frandy perla Ball Work Phone: [facility] Work Phone: Start: 10-13-2023 End: 10-13-2023 Office outpatient visit 25 minutes Steven Alvares MD Work Phone: [facility] Comment on above: Non-ischemic cardiom yopathy (Multi) (Primary Dx); LV (left ventricular) mural thrombus; Diastolic dysfunction; Pulmonary sarcoidosis (Multi); Imbalance; BMI 23.0-23.9, adult Start: 10-13-2023 End: 10-13-2023 ambulatory STEVEN Goel [facility] Ambulatory Start: 08-14-2023 End: 08-14-2023 ambulatory Clinton David EMERSON Facility:[facility] Start: 08-14-2023 End: 08-14-2023 Patient encounter procedure Clinton NORMAN [facility] Start: 05-04-2023 End: 05-04-2023 ambulatory Adam Del Valle Other [employer] Other Start: 05-04-2023 Telephone encounter Adam VERA [facility] Start: 03-01-2023 End: 03-01-2023 ambulatory Adam Del Valle Other [employer] Other Start: 03-01-2023 Office outpatient vi sit 25 minutes Adam Del Valle [facility] Start: 12-19-2022 Rx Renewal Adam E Bal l Work Phone: [facility] [employer] 250 DO Work Phone: Start: 12-04-2022 End: 12-04-2022 ambulatory Nick Muniz Other [employer] Other Start: 12-04-2022 Telephone encounter Nick vance [facility] Start: 11-28-2022 End: 11-28-2022 Patient encounter procedure Clinton Hernandez NORMAN [facility] Start: 09-27-2022 End: 09-27-2022 ambulatory Adam Del Valle Other [employer] Other Start: 09-27-2022 Telephone encounter Adam VERA [facility] Start: 09-16-2022 Rx Renewal Adam E Bal l Work [facility]: [facility] DO Work Phone: Start: 09-08-2022 Encounter for genera l adult medical examination without abnormal findings DR ADAM DEL VALLE [facility] Start: 09-02-2022 End: 09-03-[address] ADAM DEL VALLE Facility:[facility] Start: 09-02-2022 End: 09-03-2022 Encounter for general adult medical examination without abnormal findings DR ADAM DEL VALLE Facility:[facility] Start: 09-01-2022 End: 09-01-2022 ambulatory Adam Del Valle Other [facility] [employer] Other Start: 09-01-2022 Patient encounter procedure [facility] Start: 08-26-2022 Rx Renewal Adam E Bal mandy Work Phone: [facility] 250 DO Work Phone: Start: 08-16-2022 End: 08-16-2022 ambulatory Nick Muniz Other [facility] [employer] Other Start: 08-16-2022 Telephone encounter Nick vance [facility] Start: 05-16-2022 End: 05-16-[address] GREGG QUIROS Facility:[facility] Start: 04-22-2022 Adult health examination Nick Muniz Other [facility] [employer] Other Start: 04-19-2022 End: 04-19-[address] JOSE Pemberton Facility:[facility] Start: 02-14-2022 End: 02-14-2022 Patient encounter procedure Clinton NORMAN [facility] Start: 02-07-2022 End: 02-08-[address] ADAM DEL VALLE Facility:[facility] Start: 12-13-2021 End: 12-14-[address] ADAM DEL VALLE Facility:[facility] Start: 11-30-2021 End: 12-01-[address] ADAM DEL VALLE Facility:[facility] Start: 11-16-2021 End: 11-17-2021 ambulatory MATTHEW MENDEZ Facility:[facility] Start: 11-15-2021 End: 11-15-[address] JOSE ALFARO . Facility:[facility] Start: 10-26-2021 End: 10-26-2021 Admission to same day surgery center DO Adam Del Valle Work Phone: [facility] Start: 10-22-2021 End: 10-22-2021 Patient encounter procedure DO Adam Del Valle Work Phone: [facility] Start: 10-07-2021 Rx Renewal Adam galvan Work Phone: [facility] 250 DO Work Phone: Start: 10-07-2021 End: 10-07-2021 ambulatory Gregg Hilliard Other [employer] Other Start: 10-07-2021 Telephone encounter Gregg Hilliard [facility] Start: 10-05-2021 End: 10-05-2021 ambulatory Nick Muniz Other [employer] Other Start: 10-05-2021 Telephone encounter Nick vance [facility] Start: 2021 End: 2021 ambulatory Nick Palaciodano Other [employer] Other Start: 2021 Office outpatient vi sit 15 minutes Christbrendan Muniz [facility] Start: 2021 AUDIT Adam galvan Work Phone: [facility] 250 DO Work Phone: Start: 08-09-2021 End: 08-09-2021 Patient encounter procedure Clinton NORMAN [facility] Start: 04-29-2021 Office outpatient vi sit 25 minutes Adam Del Valle Work Phone: [facility] 250 DO Work Phone: Evaluation finding Adam Bird Ba ll Work Phone: -[facility] 250 DO Work Phone: Procedures Date Procedure Procedure Detail Performing Clinician Start: 02-29-2024 Plain chest X-ray DO Adam Del Valle Work Phone: Start: 02-28-2024 Plain chest X-ray DO Adam Del Valle Work Phone: Start: 09-02-[address] ADAM DEL VALLE Comment on above: Performed By: #### URIC, BMP, TSH #### [facility] [address] [place], [place] [address] Dr. Fabrizio Pascual Start: 02-07-[address] ADAM DEL VALLE Comment on above: Performed By: #### BNP, BMP, HSTROPN ### # [facility] [address] [place], [place] [address] Dr. Fabrizio Pascual Start: 10-26-2021 Esophagogastroduodenoscopy DO Adam merino Work Phone: Start: 09-22-2020 Urodynamic studies Clinton NORMAN Start: 08-24-2020 Cystoscopy Clinton NORMAN Start: 06-28-2017 Screening for osteoporosis Nick Muniz Other Start: 06-24-2016 Screening for malignant neoplasm of prostate Nick Muniz Other Arthroscopy of knee Adam Del Valle Work Phone: Colonoscopy Clinton NORMAN Hemorrhoidectomy Clinton HAYES Total colonoscopy Adam Del Valle Work Phone: Plan of Treatment Date Care Activity Detail Author Start: 02-01-2025 Echocardiography Echocardiogram [facility] Start: 10-18-2024 End: 10-18-2024 Patient encounter procedure 10/18/2024 1:30 PM EDT Office Visit [address] [phone] Shannon Gonzalez [facility] [place] [address] [place] [address] [facility] Start: 03-01-2024 [facility] Start: 02-29-2024 End: 02-29-2024 Patient encounter procedure 02/29/2024 11:40 AM EDT Office Visit [address] [place] [address] [place] [phone] Shannon Gonzalez MD [address] [facility], [place] [address] [place] [address] [facility] Start: 02-28-2024 Hospital admission [facility] Start: 02-28-2024 Plain chest X-ray XR chest 1V portable [facility] Start: 02-04-2024 [facility] Start: 02-02-2024 [facility] Start: 02-02-2024 Hospital admission [facility] Start: 02-02-2024 Referral to client care manager [facility] Start: 01-14-2024 COVID-19 Vaccine ( season) COVID-19 Vaccine ( season) [facility] Start: 01-14-2024 Influenza vaccination Influenza Vaccine (#1) [facility] Start: 09-27-2023 FUV, Provider: Steven Alvares, Status: Pen, Time: 1:40 PM FUV, Provider: Steven Alvares, Status: Pen, Time: 1:40 PM [facility] 250 DO Work Phone: Start: 01-13-2023 COVID-19 Vaccine ( season) COVID-19 Vaccine ( season) [facility] Start: 10-03-2022 FUV, Provider: Steven Alvares, Status: Pen, Time: 11:20 AM FUV, Provider: Steven Alvares, Status: Pen, Time: 11:20 AM [facility] 250 DO Work Phone: Start: 04-27-2022 FUV, Provider: Steven Alvares, Status: Pen, Time: 1:40 PM FUV, Provider: Steven Alvares, Status: Pen, Time: 1:40 PM [facility] 250 DO Work Phone: Start: 08-12-2021 Pneumococcal Vaccine: 65+ Years (3 of 3 - PPSV23 or PCV20) Pneumococcal Vaccine: 65+ Years (3 of 3 - PPSV23 or PCV20) [facility] Start: 02-22-2017 DTaP/Tdap/Td Vaccines (1 - Tdap) DTaP/Tdap/Td Vaccines (1 - Tdap) [facility] Start: 2014 RSV patients and/or patients aged 60+ years (1 - 1-dose 60+ series) RSV patients and/or patients aged 60+ years (1 - 1-dose 60+ series) [facility] Start: 2004 Zoster Vaccines (1 of 2) Zoster Vaccines (1 of 2) [facility] Start: 1972 Diabetes mellitus screening Diabetes Screening [facility] Start: 1972 Hepatitis C screening Hepatitis C Screening [facility] Start: 1954 Creatinine measurement Creatinine Level [facility] Start: 1954 Lipid panel Lipid Panel [facility] Start: 1954 Medicare Annual Wellness Visit Medicare Annual Wellness Visit (AWV) [facility] Start: 1954 Potassium measurement Potassium Level [facility] Start: 1954 Screening for malignant neoplasm of colon [facility] ECG 12 Lead ECG 12 Lead ECG Routine Atrial fibrillation, unspecified type (Multi) 02/20/2024 1:44 PM EDT [facility] Service Area Work Phone: Patient Education [facility] Work Phone: Patient referral [facility] Work Phone: [facility] Immunizations Immunization Date Immunization Notes Care Provider Yoli lemus 03-01-2023 influenza, high dose seasonal, preservative-free Adam Ivon Other [facility] [employer] Other 03-01-2023 influenza virus vaccine, unspecified formulation DO Adam Del Valle Work Phone: [facility] 03-02-2022 Fluad Quadrivalent 0 .5 ML Intramuscular Prefilled Syringe Adam Del Valle Work Phone: [facility] 250 DO Work Phone: 03-02-2022 influenza virus vaccine, split virus (incl. purified surface antigen) Nick Muniz Other [facility] [employer] Other 03-02-2022 influenza virus vaccine, unspecified formulation Clinton NORMAN [facility] 03-02-2022 influenza, seasonal, injectable Steven Alvares MD Work Phone: [facility] Work Phone: 03-02-2022 influenza, high dose seasonal, preservative-free Adam Del Valle Other [facility] [employer] Other 03-26-2021 Fluzone High-Dose Quadrivalent 0.7 ML Intramuscular Suspension Prefilled Syringe Adam Del Valle Work Phone: [facility] 250 DO Work Phone: 03-26-2021 influenza virus vaccine, unspecified formulation Clinton NORMAN [facility] 03-26-2021 influenza, high dose seasonal, preservative-free Steven Alvares MD Work Phone: [facility] Work Phone: 03-26-2021 Pfizer-BioNTech COVID-19 Vacc 30 MCG/0.3ML Intramuscular Suspension Adam Del Valle Work Phone: [facility] 02-12-2021 influenza virus vaccine, unspecified formulation Clinton NORMAN [facility] 09-14-2020 SARS-CoV-2 (COVID-19 ) mRNA BNT-162b2 vax Clinton NORMAN [facility] 08-12-2020 Pfizer-BioNTech COVID-19 Vacc 30 MCG/0.3ML Intramuscular Suspension Adam Del Valle Work Phone: [facility] 08-12-2020 pneumococcal conjuga te vaccine, 13 valent Steven Alvares MD Work Phone: [facility] Work Phone: 07-22-2020 Pfizer-BioNTech COVID-19 Vacc 30 MCG/0.3ML Intramuscular Suspension Adam Del Valle Work Phone: [facility] Comment on above: Result Comment: 2023: [id number] 02-17-2020 influenza virus vaccine, unspecified formulation Clinton NORMAN [facility] 02-17-2020 influenza, high dose seasonal, preservative-free Adam Del Valle Work Phone: [facility] 250 DO Work Phone: 02-13-2020 influenza virus vaccine, unspecified formulation Clinton NORMAN [facility] 02-03-2020 influenza virus vaccine, split virus (incl. purified surface antigen) Nick Muniz Other [facility] [employer] Other 02-03-2020 influenza virus vaccine, unspecified formulation DO Adam Del Valle Work Phone: [facility] 01-14-2020 influenza virus vaccine, unspecified formulation Clinton stiQRd [facility] 01-14-2020 influenza, high dose seasonal, preservative-free Adam E Ivon Work Phone: [place] [address] DO Work Phone: 02-19-2019 influenza virus vaccine, split virus (incl. purified surface antigen) Nick Muniz Other [employer] Other 02-19-2019 influenza virus vaccine, unspecified formulation DO Adam Teros Work Phone: [facility] 02-21-2017 influenza virus vaccine, unspecified formulation Clinton stiQRd [facility] 02-21-2017 influenza, seasonal, injectable Adam E Ivon Work Phone: [place] [address] DO Work Phone: 02-21-2017 tetanus and diphther ia toxoids, adsorbed, preservative free, for adult use (5 Lf of tetanus toxoid and 2 Lf of diphtheria toxoid) Nick Muniz Other [facility] 06-29-2016 pneumococcal polysaccharide vaccine, 23 valent Adam Bird Teros Work Phone: [facility] 06-24-2016 pneumococcal conjuga te vaccine, 13 valent Adam Bird Teros Work Phone: [facility] 06-24-2016 pneumococcal Conjugate, unspecified formulation; Translations: [Need for prophylactic vaccination against Streptococcus pneumoniae (pneumococcus)] Nick Muniz Other [employer] Other 03-30-2016 influenza virus vaccine, split virus (incl. purified surface antigen) Nick Muniz Other [employer] Other 03-30-2016 influenza virus vaccine, unspecified formulation DO Adam Del Valle Work Phone: [facility] 06-16-2010 pneumococcal polysaccharide vaccine, 23 valent Nick Muniz Other [facility] 11-19-2003 tetanus toxoid, adsorbed Adam E Ball Work Phone: [facility] 250 DO Work Phone: Payers Date Payer Category Payer Self-pay [id number] 2023 Medicare [id number] 2023 Private Health Insurance [facility] [id number] 1959 Medicare [id number] 1954 Unknown [id number] 1954 Unknown [id number] 1954 Unknown [id number] 1954 Unknown [id number] 1954 Unknown [id number] 1954 Unknown [id number] [id number] 1954 Unknown [id number] [id number] 1954 Unknown [id number] 1954 Unknown [id number] [id number] 1954 Unknown [id number] 1954 Unknown [id number] 4 1954 Unknown [id number] 4 Unknown MEDICARE Unknown HCAP/HFA/FAP Active [id number] Unknown [id number] Unknown [id number] Social History Date Type Detail Facility Start: 07-26-2023 End: 10-13-2023 Caffeine use Caffeine use -[facility] 250 DO Work Phone: Comment on above: 1-2 servings; Start: 04-05-2021 End: 02-29-2024 Tobacco smoking status Never smoked tobacco (finding) [facility] Start: 07-26-2023 End: 10-13-2023 Sex Assigned At Male [facility] Start: 1955 Sex Assigned At Male [facility] Tobacco smoking status Never [facility] Start: 07-26-2023 Tobacco use and exposure User of smokeless tobacco [facility] Work Phone: History of tobacco use Chews Tobacco [facility] Work Phone: Start: 10-13-2023 End: 02-20-2024 Alcoholic beverage intake Current drinker of alcohol (finding) [facility] Work Phone: Start: 1955 Sex assigned at Not on file [facility] Work Phone: Start: 10-03-2023 End: 02-20-2024 Exposure to SARS-CoV-2 (event) Not sure [facility] Goals Date Patient Goal Desired Activity /State Functional Status Date Assessment Result Facility 03-01-2024 Functional status Patient at Baseline [facility] Work Phone: 02-04-2024 Functional status Patient at Baseline [facility] Work Phone: 08-14-2023 Functional Status N/A [facility] 11-28-2022 Functional Status N/A [facility] 02-14-2022 Functional Status N/A [facility] Mental Status Date Assessment Result Facility 03-01-2024 Cognitive function Cognitive Sta tus Patient at Baseline [facility] Work Phone: 02-04-2024 Cognitive function Cognitive Sta tus Patient at Baseline [facility] Work Phone: Clinical Notes 08-09-2021 to 03-01-2024 Note Date & Type Note Facility 03-01-2024 Discharge summary Note Date/Time March 01, 2024 12:12pm [facility] [address] [place] [address] Discharge Summary Signed Patient: Mary Mcadams MR#: [id number] : 1955 Acct:[id number] Age/Sex: 68 / M Adm Date: 4 Loc: 3T Room: [address] [place] [address]: Altaf Jones MD Copies to: MD Adam Carballo,DO~ Providers Date of Discharge: 03/01/24 Discharging Provider: Altaf Jones Primary Care Provider: Adam Del Valle Consults: 02/29/24 00:15 Consult to Cardiology Routine Comment: Consulting Provider: 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 He presented to the emergency department on February 27, complaining of worsening shortness of breath and need to increase his oxygenby nasal cannula from his baseline. Initial evaluation in the ED showed presence of atrial fibrillation with a rate about 1 10-1 20. Patient was admitted to the hospital. He did not really have much in terms of signs or symptoms suggestive of CHF. Hewas seen by cardiology. A cardioversion was performed uneventfully on March 01 and amiodarone was started to preserve sinus rhythm. No complications occurred, and the patient was discharged home in stable condition the same day. He will follow-up with PCP, cardiology and pulmonary routinely. Medical therapywill be continued essentially unchanged otherwise as noted below. Time Spent with Patient Time spent providing/coordinating discharge services (# min): 40 Discharge Plan Discharge Plan Patient Disposition: Home Health [facility] Activity: No Activity Restriction Diet: Low-Sodium Additional Instructions: Continue oxygen as per chronic orders Home health to manage: -RN/PT/OT/Aide/SW to eval and treat -Monitor VS per protocol -Fall precautions -Perform cardiovascular assessments -Assist with medication management and education -Provide CHF education -Monitor intake and output -Daily weight -Continue oxygen as per chronic orders -Monitor voiding-- [place] was removed on 03/01/24 Instructions: Know your Meds Prescriptions: New amiodarone 200 mg Tablet 400 mg PO BID 7 Days Qty: 28 0RF amiodarone 200 mg tablet 200 mg PO BID 30 Days Qty: 60 12RF Rx Instructions: start after you complete 400 mg twice daily for 7 days Continued albuterol sulfate 90 mcg/actuation HFA aerosol inhaler See Rx Instructions .ROUTE .COMPLEX Qty: 18 11RF Dose Instruction: INHALE 2 PUFFS BY MOUTH EVERY 6 HOURS NEEDED Rx Instructions: INHALE 2 PUFFS BY MOUTH EVERY 6 HOURS NEEDED ipratropium-albuterol 0.5 mg-3 mg(2.5 mg base)/3 mL solution for nebulization 3 ml inhalation QID 30 Days Qty: 360 11RF pantoprazole 40 mg tablet,delayed release (DR/EC) See Rx Instructions .ROUTE .COMPLEX Qty: 90 3RF Dose Instruction: TAKE 1 TABLET BY MOUTH ONCE DAILY ON AN EMPTY STOMACH 30 MINUTES prior to BREAKFAST Rx Instructions: TAKE 1 TABLET BY MOUTH ONCE DAILY ON AN EMPTY STOMACH 30 MINUTES prior to BREAKFAST fluticasone propion-salmeterol 500-50 mcg/dose blister with device INHALATION Xarelto 20 mg Tablet 20 mg PO DAILY.WITH.BKFAST 30 Days Qty: 30 0RF Rx Instructions: Further refills per Cardiology with Dr. Gonzalez. Entresto 24-26 mg Tablet 1 tab PO BID albuterol sulfate 2.5 mg /3 mL (0.083 %) solution for nebulization 2.5 mg inhalation QID fluticasone propionate 50 mcg/actuation spray,suspension 1 spray intranasal DAILY tamsulosin 0.4 mg capsule 0.4 mg PO BID finasteride 5 mg tablet 5 mg PO DAILY latanoprost 0.005 % drops 1 drp ophthalmic (eye) DAILY (DME) Oxygen Unit See Rx Instructions .Route Rx Instructions: 2 liters at HS and napping DME [facility] Ellipta 200-62.5-25 mcg blister with device 1 inh inhalation DAILY Qty: 180 4RF Rx Instructions: Rinse after use carvedilol 12.5 mg tablet 12.5 mg PO BID 30 Days Qty: 60 5RF Other Ambulatory Orders: Initiate Home Health (Routine) Timeframe: 20240301 Location: Determined by Patient Ordered By: Altaf Jones Follow Up: Shannon Gonzalez MD [Active Staff] - (office will call you with follow up) Adam Del Valle DO [Primary Care Provider] - 10/25/24 9:30 am (You have been scheduled for a follow up appointment for the following date and time, please call to reschedule if needed.) Issa Marx DO [Active Staff] - 04/22/24 3:00 pm (Previously scheduled appointment. ) Exam Physical Exam Vital Signs: Temp Pulse Resp BP Pulse Ox O2 Del Method O2 Flow Rate 97.8 F 76 20 94/65 L 99 Nasal Cannula 2 03/01/24 09:11 03/01/24 10:00 03/01/24 10:00 03/01/24 10:00 03/01/24 09:55 03/01/24 09:11 03/01/24 09:11 Diagnostic Studies Completed and Pending Studies Labs on day of discharge: 03/01/24 06:10: Sodium 130 L, Potassium 3.9, Chloride 92 L, Carbon Dioxide 30.2,Anion Gap 11.7 Documented By: Altaf Jones MD 03/01/24 1203 Signed By: <Electronically signed by Altaf Jones MD> 03/01/[address] [facility] Work Phone: 1(295) 482-128210-18-2024 Progress note [facility] March 01, 2024 9:53am Note Date/Time March 01, 2024 9 :53am [facility] [address] [place] [address] Cardiology Progress Note Signed Patient: Mary Mcadams MR#: [id number] : 1955 Acct:[id number] Age/Sex: 68 / M Adm Date: 4 Loc: Room: [address] [place] [address] Type: ADM IN Attending Dr: Altaf Jones MD Copies to: ~ Date of Service: 03/01/2024 Subjective Principal diagnosis: Systolic heart failure/persistent atrial fibrillation Interval history: Mr. Mcadams is a 68 year old male who is being seen at request of the hospitalist for the problems noted above. I saw the patient in consultation on January 30, 2024 when he presented with atrial fibrillation for the first time. He was placed on Xarelto with the plan for antiarrhythmics and/or cardioversion in several weeks. At the time his echocardiogram revealed normal ejection fraction. He does have history of remote left ventricular systolic dysfunction ejection fraction 45% and for that reason he was on Entresto and beta-abisai therapy. 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 Muniz. He is on chronic steroid therapy. I have no record of this patient having cardiac MRI toassess on whether there is any cardiac involvement with sarcoidosis. He has no known history of coronary artery disease and has not had any previous antiarrhythmics or cardioversions. The patient noticed recently progressive dyspnea with lower extremity edema. He had no hemoptysis and no chest pain. Hehas no orthopnea or PND and no increased abdominal girth or significant weight gain. He has been compliant with his medical therapy as prescribed. He is nondiabetic with no history of chronic kidney disease. There is an indication there is record of pulmonary emphysema and bullous lungs. He had previous CT ofthe chest from last month revealing extensive scarring of his lungs and calcifications of lymph nodes. The patient was found to be in atrial fibrillation with RVR on presentation and was found to have significant bilateral lower extremity edema. His renal function and liver function were normal. X-ray of the chest revealed no changes from last month. Patient has been consistently taking Xarelto for last 4 weeks. I discussed with the patientthe options of therapy with my intention to proceed with cardioversion tomorrow morning try to restore normal sinus rhythm which I believe might help his overall symptoms of dyspnea. Antiarrhythmic therapy with amiodarone will be initiated today at the loading dose of 400 mg twice daily. Later on he will be referred to have cardiac MRI to rule out cardiac involvement of sarcoidosis. Progress note cardiology 03/01/2024: Patient had successful cardioversion today restoring normal sinus rhythm. He still has mild bilateral ankle edema. His echocardiogram demonstrated reduced ejection fraction down to 45% which is likely caused by persistent atrial fibrillation. The expectation or progressiveimprovement of symptoms and resolution of the edema, as an outpatient the patient will be referred for cardiac MRI to rule out cardiac involvement with sarcoidosis. Patient can be discharged anytime from the cardiac standpoint, he will be kept on amiodarone 400 mg twice daily for a week after which it will be dropped to 200 mg twice daily Exam Physical Exam Vital Signs: Temp Pulse Resp BP Pulse Ox O2 Del Method O2 Flow Rate 97.8 F 91 17 99/60 L 97 Nasal Cannula 2 03/01/24 09:11 03/01/24 09:11 03/01/24 09:11 03/01/24 09:11 03/01/24 09:11 03/01/24 09:11 03/01/24 09:11 Const General: cooperative, comfortable and no acute distress Nutritional Appearance: average body habitus Orientation: alert, awake and oriented x3 HEENT Head: normal to inspection, normocephalic and atraumatic Ears: hearing grossly normal bilaterally Nose: external nose normal Face and sinus: normal facial exam Eyes Conjunctivae: conjunctivae normal Pupils: PERRL Neck Neck: normal visual inspection, trachea midline and supple Neck mass: No Thyroid: thyroid normal Carotids: normal carotid upstroke Resp Auscultation: diminished lung sounds Cardio Jugular venous pressure: no JVD Palpation: normal PMI Rate: regular rate Rhythm: regular rhythm Heart Sounds: S1 normal and S2 normal GI Inspection: normal to inspection Palpation: soft and no hepatosplenomegaly Auscultation: normal bowel sounds Extrem General: edema (2+ bilateral ankle edema) Objective Labs 02/28/24 22:00 03/01/24 06:10 Labs: Laboratory Results - last 24 hr 03/01/24 06:10 Sodium 130 L Potassium 3.9 Chloride 92 L Carbon Dioxide 30.2 Anion Gap 11.7 A&P - Cardiology (1) Atrial fibrillation: Assessment/Problem Details: Patient had successful cardioversion to normal sinus rhythm today Qualifiers: Atrial fibrillation type: persistent (not longstanding) Qualified Code(s): I48.19 - Other persistent atrial fibrillation Plan: Continue amiodarone and Xarelto Code(s): I48.91 - Unspecified atrial fibrillation (2) Bullous emphysema: Assessment/Problem Details: Contributing to the patient's dyspnea Plan: Managed by pulmonary medicine Code(s): J43.9 - Emphysema, unspecified (3) Pulmonary sarcoidosis: Assessment/Problem Details: Contributing to the patient's symptoms of dyspnea Plan: Followed by pulmonary medicine Code(s): D86.0 - Sarcoidosis of lung (4) Hyponatremia: Assessment/Problem Details: Inconsequential at the present time Plan: Will continue to follow closely Code(s): E87.1 - Hypo-osmolality and hyponatremia (5) Lower extremity edema: Assessment/Problem Details: Likely related to mild LV systolic dysfunction Plan: Continue diuretics Code(s): R60.0 - Localized edema Documented By: Shannon Gonzalez MD, [facility] 4 0949 Signed By: <Electronically signed by MD POOL Gonzalez> 03/01/[address] [facility] Work Phone: 1(644) 596-915010-18-2024 [facility] Consult note Author Shannon Gonzalez [facility] February 29, 2024 3:45pm Note Date/Time February 29, 2024 3 :42pm [facility] [address] [place] [address] Cardiology Consult Note Signed Patient: Mary Mcadams MR#: [id number] : 1955 Acct:[id number] Age/Sex: 68 / M Adm Date: 4 Loc: Room: [address] [place] [address] Type: ADM IN Attending Dr: Altaf Jones MD Copies to: MD Adam Carballo DO Hassan M Ibrahim, MD, [facility]~ Cardiology HPI History of Present Illness Consult Date: 02/29/24 Reason for Consult: Atrial fibrillation/dyspnea on exertion HPI: Mr. Mcadams is a 68 year old male who is being seen at request of the hospitalist for the problems noted above. I saw the patient in consultation on January 30, 2024 when he presented with atrial fibrillation for the first time. He was placed on Xarelto with the plan for antiarrhythmics and/or cardioversion in several weeks. At the time his echocardiogram revealed normal ejection fraction. He does have history of remote left ventricular systolic dysfunction ejection fraction 45% and for that reason he was on Entresto and beta-abisai therapy. 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 Muniz. He is on chronic steroid therapy. I have no record of this patient having cardiac MRI toassess on whether there is any cardiac involvement with sarcoidosis. He has no known history of coronary artery disease and has not had any previous antiarrhythmics or cardioversions. The patient noticed recently progressive dyspnea with lower extremity edema. He had no hemoptysis and no chest pain. Hehas no orthopnea or PND and no increased abdominal girth or significant weight gain. He has been compliant with his medical therapy as prescribed. He is nondiabetic with no history of chronic kidney disease. There is an indication there is record of pulmonary emphysema and bullous lungs. He had previous CT ofthe chest from last month revealing extensive scarring of his lungs and calcifications of lymph nodes. The patient was found to be in atrial fibrillation with RVR on presentation and was found to have significant bilateral lower extremity edema. His renal function and liver function were normal. X-ray of the chest revealed no changes from last month. Patient has been consistently taking Xarelto for last 4 weeks. I discussed with the patientthe options of therapy with my intention to proceed with cardioversion tomorrow morning try to restore normal sinus rhythm which I believe might help his overall symptoms of dyspnea. Antiarrhythmic therapy with amiodarone will be initiated today at the loading dose of 400 mg twice daily. Later on he will be referred to have cardiac MRI to rule out cardiac involvement of sarcoidosis. Review of Systems Review of Systems Review of systems: 11 point review of system outside of what is covered above in HPI was unremarkable [facility] Medical History (Updated 02/29/24 @ 15:44 by Shannon Gonzalez MD) Alcohol dependence Afib Rectal bleeding Atrial fibrillation Cardiac sarcoidosis Bullous emphysema History of aspergilloma Pulmonary sarcoidosis Benign prostatic hyperplasia with lower urinary tract symptoms Acoustic neuroma Chronic HFrEF (heart failure with reduced ejection fraction) Hypertension Lumbar spondylosis Gastroesophageal reflux disease with esophagitis without hemorrhage Diverticulosis Personal history of colonic polyps Chronic respiratory failure with hypoxia Nonischemic cardiomyopathy Hyponatremia Sarcoidosis of lung Surgical History H/O colonoscopy (~10/2021) repeat 5 years History of arthroscopic knee surgery Family History Brother Heart disease Legacy FamHx Relation: Brother(s) Father Cancer Legacy FamHx Problem: Diagnosed with Cancer Mother Heart disease Myocardial infarction Diabetes Social History Smoking Status: Never smoker Substance Use Type: Alcohol Substance Abuse Comment: reports 2,3, or 4 beers daily Social History Comments: Son and son's significant other Meds Medications and Allergies Allergies No Known Allergies Allergy (Verified 10/23/23 15:04) Home Medications sacubitril 24 mg-valsartan 26 mg tablet (Entresto) 1 tab PO BID 05/11/18 [History Confirmed 02/28/24] albuterol sulfate 2.5 mg/3 mL (0.083 %) solution for nebulization 2.5 mg inhalation QID 09/08/23 [History Confirmed 02/28/24] finasteride 5 mg tablet 5 mg PO DAILY 09/08/23 [History Confirmed 02/28/24] fluticasone propionate 50 mcg/actuation nasal spray,suspension 1 spray intranasal DAILY 09/08/23 [History Confirmed 02/28/24] tamsulosin 0.4 mg capsule 0.4 mg PO BID 09/08/23 [History Confirmed 02/28/24] latanoprost 0.005 % eye drops 1 drp ophthalmic (eye) DAILY 10/12/23 [History Confirmed 02/28/24] Oxygen 10/23/23 [History Confirmed 02/29/24] albuterol sulfate 90 mcg/actuation aerosol inhaler See Rx Instructions .Route .COMPLEX #18 grams 10/23/23 [Rx Confirmed 02/28/24] fluticasone fur. 200 mcg-umeclid 62.5 mcg-vilant 25 mcg inhalat.powder (Trelegy Ellipta) 1 inh inhalation DAILY #180 ea 10/23/23 [Rx Confirmed 02/28/24] ipratropium 0.5 mg-albuterol 3 mg (2.5 mg base)/3 mL nebulization soln 3 ml inhalation QID 30 days #360 mL 01/30/24 [Rx Confirmed 02/28/24] fluticasone 500 mcg-salmeterol 50 mcg/dose blistr powdr for inhalation inhalation 02/02/24 [History Confirmed 02/05/24] rivaroxaban 20 mg tablet (Xarelto) 20 mg PO DAILY.WITH.BKFAST 30 days #30 tabs 02/04/24 [Rx Confirmed 02/28/24] carvedilol 12.5 mg tablet 12.5 mg PO BID 30 days #60 tabs 02/14/24 [Rx Confirmed 02/28/24] pantoprazole 40 mg tablet,delayed release See Rx Instructions .Route .COMPLEX #90 tabs 02/18/24 [Rx Confirmed 02/28/24] Exam Physical Exam Vital Signs: Temp Pulse Resp BP Pulse Ox O2 Del Method O2 Flow Rate 97.3 F L 86 18 98/69 L 99 Nasal Cannula 2 02/29/24 11:05 02/29/24 12:12 02/29/24 12:12 02/29/24 11:05 02/29/24 11:05 02/29/24 12:00 02/29/24 12:00 Const General: cooperative, comfortable and no acute distress Nutritional Appearance: average body habitus Orientation: alert, awake and oriented x3 HEENT Head: normal to inspection, normocephalic and atraumatic Ears: hearing grossly normal bilaterally Nose: external nose normal Face and sinus: normal facial exam Eyes Conjunctivae: conjunctivae normal Pupils: PERRL Neck Neck: normal visual inspection, trachea midline and supple Neck mass: No Thyroid: thyroid normal Carotids: normal carotid upstroke Resp Auscultation: diminished lung sounds Cardio Jugular venous pressure: no JVD Palpation: normal PMI Rate: regular rate Rhythm: abnormal rhythm irregularly irregular Heart Sounds: S1 normal and S2 normal GI Inspection: normal to inspection Palpation: soft and no hepatosplenomegaly Auscultation: normal bowel sounds Extrem General: edema (2+ bilateral ankle edema) Results - Cardiology Labs 02/28/24 22:00 02/29/24 06:06 Lab results: Cardiac Enzymes 02/28/24 Range/Units 22:00 AST 14 (13-39) U/L Total Creatine Kinase 26 L (30-223) U/L B-Natriuretic Peptide 614.0 H (5-100) pg/mL CBC 02/28/24 Range/Units 22:00 RBC 4.09 (3.90-5.60) X10E6/uL Hgb 12.3 L (13.0-17.0) g/dL Hct 36.7 L (38.8-50.0) % Plt Count 238 (150-450) x10E3/uL Neut # (Auto) 4.6 (1.8-7.7) x10E3/uL Lymph # (Auto) 0.6 L (1.00-4.8) x10E3/uL [place] # (Auto) 0.6 (0.0-0.8) x10E3/uL Eos # (Auto) 0.1 (0.0-0.45) x10E3/uL Baso # (Auto) 0.0 (0.0-0.2) x10E3/uL Comprehensive Metabolic Panel 02/28/24 02/29/24 Range/Units 22:00 06:06 Sodium 128 L 130 L (136-145) mmol/L Potassium 3.9 3.8 (3.5-5.1) mmol/L Chloride 96 L 94 L (98-107) mmol/L Carbon Dioxide 25.1 29.2 (21.0-31.0) mmol/L BUN 11 11 (7-25) mg/dL Creatinine 0.77 0.69 L (0.70-1.30) mg/dL Glucose 133 H 86 (70-100) mg/dL Calcium 9.0 8.6 (8.6-10.3) mg/dL Direct Bilirubin 0.20 H (0.03-0.18) mg/dL Indirect Bilirubin 0.3 mg/dL AST 14 (13-39) U/L ALT 10 (7-52) U/L Alkaline Phosphatase 71 (34-104) U/L Total Protein 6.9 (6.4-8.9) gm/dL Albumin 3.7 (3.5-5.7) gm/dL Intake and Output 02/28/24 02/29/24 02/29/24 23:59 07:59 15:59 Intake Total 0 / 540 540 / 540 Output Total 700 / 4200 3500 / 4200 Balance -700 / -3660 -2960 / -3660 Intake: Oral 0 / 540 540 / 540 Output: Urine 700 / 3700 3000 / 3700 Urine Amount (Catheter) 500 / 500 Coude 500 / 500 Other: # Voids 1 # Unmeasured Voids 2 Weight 77.9 kg 80.6 kg Date of Last Bowel Movement 02/28/24 02/28/24 Patient Weight 02/29/24 23:59 Weight 80.6 kg Lab 02/28/24 22:00 PT 22.4 H INR 2.0 APTT 42.4 H A&P - Cardiology (1) Atrial fibrillation: Assessment/Problem Details: Heart rate is controlled Plan: Initiate amiodarone therapy 400 mg twice daily, cardioversion tomorrow, continueXarelto, possible discharge home tomorrow Qualifiers: Atrial fibrillation type: persistent (not longstanding) Qualified Code(s): I48.19 - Other persistent atrial fibrillation Code(s): I48.91 - Unspecified atrial fibrillation (2) Bullous emphysema: Assessment/Problem Details: Contributing to the patient's dyspnea Plan: Managed by pulmonary medicine Code(s): J43.9 - Emphysema, unspecified (3) Pulmonary sarcoidosis: Assessment/Problem Details: Contributing to the patient's symptoms of dyspnea Plan: Followed by pulmonary medicine Code(s): D86.0 - Sarcoidosis of lung (4) Hyponatremia: Assessment/Problem Details: Inconsequential at the present time Plan: Will continue to follow closely Code(s): E87.1 - Hypo-osmolality and hyponatremia (5) Lower extremity edema: Assessment/Problem Details: Patient is known to have preserved ejection fraction by echocardiogram January2024 Plan: Continue diuretics Code(s): R60.0 - Localized edema Documented By: Shannon Gonzalez MD, [facility] 153 Signed By: <Electronically signed by [facility] Shannon Gonzalez> 02/29/24 1543 [facility] Work Phone: 1(482) 353-285010-17-2024 Progress note Author Altaf Jones [facility] February 29, 2024 12:03pm Note Date/Time February 29, 2024 1 1:53am [facility] [address] [place] [address] Hospitalist Progress Note Signed Patient: Mary Mcadams MR#: [id number] : 1955 Acct:[id number] Age/Sex: 68 / M Adm Date: 4 Loc: Room: [address] [place] [address] Type: ADM IN Attending Dr: Altaf Jones MD Copies to: ~ Date of Service: 02/29/2024 Subjective Subjective Narrative: Attending note: I saw the patient personally on the day of encounter. I reviewed the relevant history, and performed the gracia elements of the physical examination. I reviewedthe relevant laboratory workup, radiological studies and the current treatment plan. I formulated the plan of care and confirmed it with the resident/student/[employer]. Patient, Mary Mcadams, is a 68 year male,with a PMHx of f A-fib, pulmonary andcardiac sarcoidosis, COPD, aspergilloma, chronic respiratory failure with hypoxia?home oxygen, BPH, HTN admitted for SOB. Patient was discharged from the hospital recently for a CHF exacerbation. Patient did not have labored breathing. Today on hospital day #1, pt feels better than when he came in. Acute problems: Dyspnea. Etiology is not entirely clear. At the time of the examination today the patient appears euvolemic. Central venous pressure is low. Heart rate does notindicate uncontrolled A-fib. I tend to think that his issue is mostly pulmonaryin nature. -monitors I's and O's -[place] cath - Cardiology Consult is pending -Echo limited is pending -Lasix for diuresis will be continued Chronic conditions requiring attention while inpatient: continue home meds unless otherwise listed below. Additional plans below. Atrial fibrillation: Hypertension: Chronic respiratory failure with hypoxia: Hyponatremia: Alcohol dependence: DVT PPx: compression socks, rivaroxaban Diet: Heart healthy CODE STATUS: Full Plan of care Discussed with:?the medical team, the patient GENERAL: No apparent distress, alert, oriented, appears stated age, comfortable HEENT: NC/AT, EOMI, PERRL, conjunctiva clear, no adenopathy, dentition CARDIOVASCULAR: Regular rate and regular rhythm, no murmurs, symmetric palpable radial pulses RESPIRATORY: nonlabored work of breathing on room air, clear to auscultation bilaterally, symmetric chest rise, no wheezes/rales/rhonci ABDOMEN: Soft, non-tender, non-distended, normal bowel sounds BACK: No midline or paraspinal tenderness EXTREMITIES: moving all extremities well. Well-perfused. POCUS was used and didnot visulize DVT NEURO: Cranial nerves grossly intact, no focal neurologic signs PSYCHIATRIC: Good eye contact, appropriate mood and affect, cooperative Exam Physical Exam Vital Signs: Temp Pulse Resp BP Pulse Ox O2 Del Method O2 Flow Rate 97.3 F L 79 18 98/69 L 99 Nasal Cannula 2 02/29/24 11:05 02/29/24 11:05 02/29/24 11:05 02/29/24 11:05 02/29/24 11:05 02/29/24 11:05 02/29/24 11:05 Objective Lab Results 02/28/24 22:00 02/29/24 06:06 Meds Allergies and Active Meds Allergies No Known Allergies Allergy (Verified 10/23/23 15:04) Active Meds: Active Medications Generic Name Dose Route Start Last Admin Trade Name Freq PRN Reason Stop Dose Admin Acetaminophen 1,000 mg 02/29/24 00:10 Acetaminophen 500 Mg Tablet PO 02/28/25 00:09 Q6HR PRN Pain Scale 1 - 3 or fever Albuterol 2 puff 02/29/24 02:00 Albuterol Hfa 60 Puff/8 Gram Inhaler INHALATION 02/28/25 01:59 Q4HR PRN PRN WHEEZING Albuterol/Ipratropium 3 ml 02/29/24 08:00 02/29/24 08:01 Ipratropium/Albuterol 0.5-3 Mg 3 Ml Ampul.Neb INHALATION 02/28/25 07:59 3 ml QID.RESP ALEX Administration Budesonide/Formoterol Fumarate 2 puff 02/29/24 09:00 02/29/24 08:01 Budesonide/Formoterol 160-4.5 Mcg 60 Puff/6 Gm Hfa.Aer.Ad INHALATION 02/28/25 08:59 2 puff BID ALEX Administration Carvedilol 12.5 mg 02/29/24 09:00 02/29/24 08:48 Carvedilol 12.5 Mg Tablet PO 02/28/25 08:59 12.5 mg BID ALEX Administration Finasteride 5 mg 02/29/24 09:00 02/29/24 08:48 Finasteride 5 Mg Tablet PO 02/28/25 08:59 5 mg DAILY ALEX Administration Fluticasone Propionate 1 spray 02/29/24 09:00 02/29/24 08:49 Fluticasone Propionate Metz 120 Metz/16 Gm Bottle INTRANASAL 02/28/25 08:59 1 spray DAILY ALEX Administration Furosemide 40 mg 02/29/24 08:00 02/29/24 08:50 Furosemide 40 Mg/4 Ml Vial IV-PUSH 02/28/25 07:59 40 mg BID@0800,1600 ALEX Administration Magnesium Sulfate 4 gm in 100 mls @ 25 mls/hr 02/29/24 10:30 02/29/24 10:58 Magnesium Sulf 4 Gm-*Swfi* IV 02/29/24 14:29 25 mls/hr ONCE ONE Administration Latanoprost 1 drops 02/29/24 22:00 Latanoprost 0.005% Op Soln 50 Drops/2.5 Ml Bottle EYE-BOTH 02/28/25 21:59 HS ALEX Ondansetron HCl 4 mg 02/29/24 00:10 Ondansetron 4 Mg/2 Ml Vial IV-PUSH 02/28/25 00:09 Q6H PRN Nausea And Vomiting Pantoprazole Sodium 40 mg 02/29/24 07:30 02/29/24 06:30 Pantoprazole 40 Mg Tablet.Dr PO 02/28/25 07:29 40 mg DAILY.AC.BKFAST ALEX Administration Potassium Chloride 20 meq 02/29/24 09:00 02/29/24 08:48 Potassium Chloride Er 20 Meq Tab.Er.Prt PO 02/28/25 08:59 20 meq BID ALEX Administration Rivaroxaban 20 mg 02/29/24 08:00 02/29/24 08:48 Rivaroxaban 20 Mg Tablet PO 02/28/25 07:59 20 mg DAILY.WITH.BKFAST ALEX Administration Sacubitril/Valsartan 1 tab 02/29/24 09:00 02/29/24 08:48 Sacubitril/Valsartan 24-26mg 1 Tab Tablet PO 02/28/25 08:59 1 tab BID ALEX Administration Sodium Chloride 0 ml 02/28/24 21:41 02/28/24 22:58 Sodium Chloride 0.9 % 10 Ml Syringe IV-PUSH 02/27/25 21:40 10 ml PRN PRN Administration Flush Sodium Chloride 0 ml 02/29/24 06:00 02/29/24 06:30 Sodium Chloride 0.9 % 10 Ml Syringe IV-PUSH 02/28/25 05:59 10 ml QSHIFT ALEX Administration Tamsulosin HCl 0.4 mg 02/29/24 09:00 02/29/24 08:49 Tamsulosin 0.4 Mg Cap.Er.24h PO 02/28/25 08:59 0.4 mg BID ALEX Administration A&P - Hospitalist Assessment/Plan (1) Acute on chronic clinical systolic heart failure: Plan . Documented By: Altaf Jones MD 02/29/24 1138 Signed By: <Electronically signed by Altaf Jones MD> 02/29/[address] [facility] Work Phone: 1(776) 212-463810-17-2024 History and physical note Author Silvano Reed [facility] February 29, 2024 1:28am Note Date/Time February 29, 2024 1 2:24am [facility] [address] [place] [address] Hospitalist H&P Signed Patient: Mary Mcadams MR#: [id number] : 1955 Acct:[id number] Age/Sex: 68 / M Adm Date: 4 Loc: Room: [address] [place] [address] Type: ADM IN Attending Dr: Silvano Reed DO Copies to: Adam Del Valle,DO Silvano Reed, DO Maricruz Godoy, [employer]ACHINE [employer]PA[employer]ER [employer]INTENANCE~ HPI DATE OF EXAMINATION: 02/28/24 CHIEF COMPLAINT: shortness of breath HISTORY OF PRESENT ILLNESS: Mr. Mcadams is a 68-year-old male with a PMH of A-fib, pulmonary and cardiac sarcoidosis, COPD, aspergilloma, chronic respiratory failure with hypoxia?home oxygen, BPH, HTN the presents to the emergency room tonight for complaints of shortness of breath. Patient states for the last few days he has had increasingshortness of breath, inability to lay flat, having to wear his oxygen at all times. He denies chest pain, fever or chills, nausea or vomiting. He also denies a history of heart failure. He reports that his right leg has been increasingly swollen for the last few days. He states that he has never smoked. He does drink beer daily, reports up to 4 beers daily. Also states that he self cath twice a day for urine retention. Chest x-ray showing volume overload, pending final read. EKG is A-fib. CBC with an H&H of 12.3/36.7, otherwise unremarkable. PT/INR 22.4/2, PTT 42.4. CMPwith a sodium of 128, glucose 133, direct bilirubin slightly high at 0.2. TotalCPK low at 26. BNP 614. Patient was medicated with 60 mg of furosemide, Nitro-Dur patch applied. He will be admitted as inpatient to the [facility] telemetry floor. Review of Systems Review of Systems Review of systems: A 10 point review of systems was obtained, negative unless noted in the HPI or below. [facility] Medical History Alcohol dependence Afib Rectal bleeding Atrial fibrillation Cardiac sarcoidosis Bullous emphysema History of aspergilloma Pulmonary sarcoidosis Benign prostatic hyperplasia with lower urinary tract symptoms Acoustic neuroma Chronic HFrEF (heart failure with reduced ejection fraction) Hypertension Lumbar spondylosis Gastroesophageal reflux disease with esophagitis without hemorrhage Diverticulosis Personal history of colonic polyps Chronic respiratory failure with hypoxia Nonischemic cardiomyopathy Hyponatremia Sarcoidosis of lung Surgical History H/O colonoscopy (~10/2021) repeat 5 years History of arthroscopic knee surgery Family History Brother Heart disease Legacy FamHx Relation: Brother(s) Father Cancer Legacy FamHx Problem: Diagnosed with Cancer Mother Heart disease Myocardial infarction Diabetes Social History Smoking Status: Never smoker Substance Use Type: Alcohol Substance Abuse Comment: reports 2,3, or 4 beers daily Social History Comments: Son and son's significant other Meds Medications and Allergies Allergies No Known Allergies Allergy (Verified 10/23/23 15:04) Home Medications sacubitril 24 mg-valsartan 26 mg tablet (Entresto) 1 tab PO BID 05/11/18 [History Confirmed 02/28/24] albuterol sulfate 2.5 mg/3 mL (0.083 %) solution for nebulization 2.5 mg inhalation QID 09/08/23 [History Confirmed 02/28/24] finasteride 5 mg tablet 5 mg PO DAILY 09/08/23 [History Confirmed 02/28/24] fluticasone propionate 50 mcg/actuation nasal spray,suspension 1 spray intranasal DAILY 09/08/23 [History Confirmed 02/28/24] tamsulosin 0.4 mg capsule 0.4 mg PO BID 09/08/23 [History Confirmed 02/28/24] latanoprost 0.005 % eye drops 1 drp ophthalmic (eye) DAILY 10/12/23 [History Confirmed 02/28/24] Oxygen 10/23/23 [History Confirmed 02/29/24] albuterol sulfate 90 mcg/actuation aerosol inhaler See Rx Instructions .Route .COMPLEX #18 grams 10/23/23 [Rx Confirmed 02/28/24] fluticasone fur. 200 mcg-umeclid 62.5 mcg-vilant 25 mcg inhalat.powder (Trelegy Ellipta) 1 inh inhalation DAILY #180 ea 10/23/23 [Rx Confirmed 02/28/24] ipratropium 0.5 mg-albuterol 3 mg (2.5 mg base)/3 mL nebulization soln 3 ml inhalation QID 30 days #360 mL 01/30/24 [Rx Confirmed 02/28/24] fluticasone 500 mcg-salmeterol 50 mcg/dose blistr powdr for inhalation inhalation 02/02/24 [History Confirmed 02/05/24] rivaroxaban 20 mg tablet (Xarelto) 20 mg PO DAILY.WITH.BKFAST 30 days #30 tabs 02/04/24 [Rx Confirmed 02/28/24] carvedilol 12.5 mg tablet 12.5 mg PO BID 30 days #60 tabs 02/14/24 [Rx Confirmed 02/28/24] pantoprazole 40 mg tablet,delayed release See Rx Instructions .Route .COMPLEX #90 tabs 02/18/24 [Rx Confirmed 02/28/24] Exam Physical Exam Vital Signs: Temp Pulse Resp BP Pulse Ox O2 Del Method O2 Flow Rate 97.3 F L 118 H 22 169/94 H 94 L Nasal Cannula 2 02/28/24 21:46 02/28/24 23:36 02/28/24 23:38 02/28/24 23:36 02/28/24 23:38 02/28/24 23:38 02/28/24 23:38 Narrative: CONST- Appears well -developed and well nourished. HEAD - Normocephalic and atraumatic EENT-Sclera nonicteric, conjunctive are non-erythemic, moist oral mucosa, pharynx clear NECK-Supple, no cervical lymphadenopathy CARDIAC-tachycardic, irregular rhythm, S1 & S2. Bilateral JVD PULM-diminished, crackles throughout, inspiratory wheeze, 2L NC, some accessory muscle use, nonproductive cough noted ABD - Soft. Bowel sounds are normal. No distention. No tenderness EXTREM- +2 pitting edema RLE ankle, calf and foot, nontender SKIN- W/D good turgor MS- MAEX4 spontaneously with equal with equal strength-generalized weakness- up with assist to bathroom, gait steady NEURO- A&Ox3 speech clear and tongue midline, equal facial symmetry, no focal motor deficits PSYCH-Mood, affect, and behavior appropriate Results - Hospitalist H&P Lab Results Labs: Laboratory Last Values Corrected WBC 5.9 X10E3/uL (4.1-10.5) 02/28/24 22:00 Uncorrected WBC Count 5.9 x10E3/uL (4.1-10.5) 02/28/24 22:00 RBC 4.09 X10E6/uL (3.90-5.60) 02/28/24 22:00 Hgb 12.3 g/dL (13.0-17.0) L 02/28/24 22:00 Hct 36.7 % (38.8-50.0) L 02/28/24 22:00 MCV 89.6 fl (83.5-101) 02/28/24 22:00 MCH 30.2 pg (27.5-35.2) 02/28/24 22:00 MCHC 33.7 g/dL (32.5-35.6) 02/28/24 22:00 RDW 13.8 % (12.0-14.8) 02/28/24 22:00 Plt Count 238 x10E3/uL (150-450) 02/28/24 22:00 MPV 8.4 fl (6.6-10.1) 02/28/24 22:00 Neut % (Auto) 78.8 % (.) 02/28/24 22:00 Lymph % (Auto) 9.9 % (.) 02/28/24 22:00 Lagrange % (Auto) 10.0 % (.) 02/28/24 22:00 Eos % (Auto) 0.9 % (.) 02/28/24 22:00 Baso % (Auto) 0.4 % (.) 02/28/24 22:00 Nucleat RBC Rel Count 0.1 /100 WBC (0-0.5) 02/28/24 22:00 Neut # (Auto) 4.6 x10E3/uL (1.8-7.7) 02/28/24 22:00 Lymph # (Auto) 0.6 x10E3/uL (1.00-4.8) L 02/28/24 22:00 Lagrange # (Auto) 0.6 x10E3/uL (0.0-0.8) 02/28/24 22:00 Eos # (Auto) 0.1 x10E3/uL (0.0-0.45) 02/28/24 22:00 Baso # (Auto) 0.0 x10E3/uL (0.0-0.2) 02/28/24 22:00 Monocyte Dist Width 19.63 % (0.00-20.00) 02/28/24 22:00 PT 22.4 Seconds (9.0-12.9) H 02/28/24 22:00 INR 2.0 02/28/24 22:00 APTT 42.4 Seconds (25.1-36.5) H 02/28/24 22:00 PHA Creatinine Clear 95.65 02/28/24 22:00 Sodium 128 mmol/L (136-145) L 02/28/24 22:00 Potassium 3.9 mmol/L (3.5-5.1) 02/28/24 22:00 Chloride 96 mmol/L (98-107) L 02/28/24 22:00 Carbon Dioxide 25.1 mmol/L (21.0-31.0) 02/28/24 22:00 Anion Gap 10.8 mEq/L (6.0-15.0) 02/28/24 22:00 BUN 11 mg/dL (7-25) 02/28/24 22:00 Creatinine 0.77 mg/dL (0.70-1.30) 02/28/24 22:00 Est GFR (CKD-EPI) > 60.0 mL/Min 02/28/24 22:00 Glucose 133 mg/dL (70-100) H 02/28/24 22:00 Calcium 9.0 mg/dL (8.6-10.3) 02/28/24 22:00 Total Bilirubin 0.5 mg/dl (0.3-1.0) 02/28/24 22:00 Direct Bilirubin 0.20 mg/dL (0.03-0.18) H 02/28/24 22:00 Indirect Bilirubin 0.3 mg/dL 02/28/24 22:00 AST 14 U/L (13-39) 02/28/24 22:00 ALT 10 U/L (7-52) 02/28/24 22:00 Alkaline Phosphatase 71 U/L (34-104) 02/28/24 22:00 Total Creatine Kinase 26 U/L (30-223) L 02/28/24 22:00 Troponin I High Sens 4.9 pg/mL (0.0-20.0) 02/28/24 22:00 B-Natriuretic Peptide 614.0 pg/mL (5-100) H 02/28/24 22:00 Total Protein 6.9 gm/dL (6.4-8.9) 02/28/24 22:00 Albumin 3.7 gm/dL (3.5-5.7) 02/28/24 22:00 Globulin 3.2 gm/dL 02/28/24 22:00 Albumin/Globulin Ratio 1.2 02/28/24 22:00 Assessment & Plan Assessment/Plan (1) Acute on chronic clinical systolic heart failure: (2) Shortness of breath: (3) Atrial fibrillation: (4) Hypertension: (5) Chronic respiratory failure with hypoxia: (6) Hyponatremia: (7) Alcohol dependence: Plan Acute on chronic systolic heart failure?last EF 02/02/2024?50 to 55%, diastolic function cannot be assessed due to A-fib, echo 8 years ago with an EF of 45% Shortness of breath Chronic respiratory failure with hypoxia?patient has been wearing oxygen at all times at home ? Furosemide 40 mg IV twice daily ? Limited echo in a.m. ? Consult cardiology ? Daily weights, strict I&O ? Continue oxygen as needed, keep SpO2 greater than 90% Chronic conditions?resume home meds as appropriate A-fib?rivaroxaban, Entresto HTN?carvedilol Hyponatremia likely due to daily alcohol use?current level 128, monitor, BMP in a.m. BPH?patient reports he self caths twice daily at home, bladder scan as needed, finasteride, tamsulosin DVT PPx?compression socks, rivaroxaban Diet order?heart healthy CODE STATUS?full code +++ +++ I personally saw this patient when he was hospitalized for 3 days for new atrialfibrillation on February 03. At that time he was seen by cardiology with Dr. Gonzalez. The patient has a pasthistory of heart failure with reduced ejection fraction, but his ejection fraction had normalized on Entresto. His echocardiogram 3 weeks ago had a normal ejection fraction of about 50 to 55%. The patient was discharged from the hospital with the only new medication being Xarelto for anticoagulation. His heart rate was controlled. And his lungs were clear and he had no visible dyspnea on exertion. Seeing him now he is very dyspneic on exertion. On his bedside nurse notices that he gets profoundly dyspneic just walking to the bathroom. He does straightcath himself twice a day at home. For his safety while he is getting the diuretics at this time we will put in a [place] catheter which hopefully can be removed in 24 to 48 hours when his diuretics are de-escalated. I personally saw this patient on the day of the encounter, reviewed the relevanthistory, performed the gracia elements of the physical exam, and discussed and formulated the plan of care with the Nurse Practitioner, and I confirm the NursePractitioner's documentation as written. - - - Silvano Reed DO. Internal Medicine + Hospitalist attending physician. IP vs OBS Justification Based on differential dx, clinical care plan, and risk of adverse events, if untreated, in my clinical judgement this patient requires an acute care setting as: INPATIENT because of an expectation of an over 2 midnight stay. Estimated length of stay (# of days): 3 Documented By: Maricruz Godoy APRN 02/29/24 0023 Signed By: <Electronically signed by CHARLEY Godoy> 02/29/24 0050 <Electronically signed by Silvano Reed DO> 02/29/24 0128 [facility] Work Phone: 1(659) 247-878910-08-2024 History of Present illness Narrative* Olivia Toro LPN - 02/20/2024 2:00 PM EDT Patient here for an EKG visit ordered by Dr. Gonzalez due to new onset afib, diagnosed at [facility] on 02/04/24. Dr. Burroughs in suite to review EKG prior to discharge. Medication list Updated verbally. Patient has complaints of SOB and dizziness while in office. To Dr. Gonzalez to read Vitals: 02/20/24 1422 BP: 140/80 BP Location: Left arm Patient Position: Sitting Pulse: 102 Weight: 76.7 kg (169 lb) Height: 1.829 m (6') documented in this [facility] Work Phone: 1(894) 802-438309-22-2024 Discharge summary Author Silvano Reed [facility] February 04, 2024 4:34pm Note Date/Time February 04, 2024 2:14pm [facility] [address] [place] [address] Discharge Summary Signed Patient: Mary Mcadams MR#: [id number] : 1955 Acct:[id number] Age/Sex: 68 / M Adm Date: 4 Loc: Room: [address] [place] [address]: Silvano Reed DO Copies to: DO Shannon Waller MD, [facility] Silvano Reed DO~ Providers Date of Discharge: 02/04/24 Discharging Provider: Silvano Reed Primary Care Provider: Adam Del Valle Consults: 02/02/24 10:35 Consult to Cardiology Routine Comment: Consulting Provider: [facility], [facility] Reason For Exam: New A-Fib with RVR. Saw Dia in the past Has Provider Been Notified: Yes Date of Notification: 02/02/24 Time of Notification: 10:46 Discharge Diagnosis (1) New onset atrial fibrillation: (2) Nonsustained paroxysmal ventricular tachycardia: (3) Anticoagulated: (4) Bullous emphysema: (5) History of aspergilloma: (6) Pulmonary sarcoidosis: (7) Acoustic neuroma: (8) Chronic HFrEF (heart failure with reduced ejection fraction): (9) Hypertension: (10) Chronic respiratory failure with hypoxia: (11) Nonischemic cardiomyopathy: Final Diagnosis Final Discharge Diagnosis: Atrial fibrillation, new onset, with rapid ventricular response. Several days and weeks of progressive dyspnea and dyspnea on exertion at home, likely due to the above. Chronic heart failure with reduced ejection fraction. Nonischemic cardiomyopathy. Chronic Hypoxic respiratory failure on 2 L oxygen by nasal cannula for many years. Pulmonary sarcoidosis. Suspicion of cardiac sarcoidosis, uncertain if patient ever had an MRI of his heart. Summary Hospital Course Hospital course: This is a 68-year-old man who had been having dyspnea and dyspnea on exertion that had been getting slowly worse for several weeks and months. He even saw his primary client care manager, Dr. 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 He tried a course of diuretics at home which really did not make him feel better. He presented to emergency room with this and was found to have atrial fibrillation with rapid ventricular response. The patient has no history of atrial fibrillation before. He was started on a Cardizem drip which brought hisheart rate under control. In the hospital he had cardiology consultation. Xarelto anticoagulation was started. The Coreg that the patient has been taking for a long time was not changed by the residential solar sales consultant during hospital stay. An echocardiogram was done. Its results are imported below: Mild concentric left ventricular hypertrophy. Ejection Fraction = 50-55%. Diastolic function cannot be assessed in the presence of atrial fibrillation The left atrium appears mildly dilated. The patient was in atrial fibrillation through out the study. Compared to prior echo report on 08/01/2015, changes are noted. The left ventricle ejection fraction has slightly improved, atrial fibrillation was not reported previously The patient did do well in the hospital. As his heart rate was brought under better control he did say that the shortness of breath he was feeling at home did get better. Condition Condition at Discharge: Stable Status at Discharge Functional status at discharge: independent ambulation Overall status at discharge: patient is progressing back to baseline Time Spent with Patient Time spent providing/coordinating discharge services (# min): 44 Discharge Plan Discharge Plan Patient Disposition: Home Activity: Ambulate as Tolerated Diet: Low-Sodium Instructions: Atrial Fibrillation (DC), Know your Meds Prescriptions: New Xarelto 20 mg Tablet 20 mg PO DAILY.WITH.BKFAST 30 Days Qty: 30 0RF Rx Instructions: Further refills per Cardiology with Dr. Gonzalez. Continued albuterol sulfate 90 mcg/actuation HFA aerosol inhaler See Rx Instructions .ROUTE .COMPLEX Qty: 18 11RF Dose Instruction: INHALE 2 PUFFS BY MOUTH EVERY 6 HOURS NEEDED Rx Instructions: INHALE 2 PUFFS BY MOUTH EVERY 6 HOURS NEEDED ipratropium-albuterol 0.5 mg-3 mg(2.5 mg base)/3 mL solution for nebulization 3 ml inhalation QID 30 Days Qty: 360 11RF fluticasone propion-salmeterol 500-50 mcg/dose blister with device INHALATION Entresto 24-26 mg Tablet 1 tab PO BID albuterol sulfate 2.5 mg /3 mL (0.083 %) solution for nebulization 2.5 mg inhalation QID fluticasone propionate 50 mcg/actuation spray,suspension 1 spray intranasal DAILY pantoprazole 40 mg tablet,delayed release (DR/EC) 40 mg PO DAILY prednisone 5 mg tablet 5 mg PO DAILY tamsulosin 0.4 mg capsule 0.4 mg PO BID finasteride 5 mg tablet 5 mg PO DAILY carvedilol 12.5 mg tablet 12.5 mg PO BID latanoprost 0.005 % drops 1 drp ophthalmic (eye) DAILY (DME) Oxygen Unit See Rx Instructions .ROUTE Rx Instructions: 2 liters at HS and napping DME [facility] Ellipta 200-62.5-25 mcg blister with device 1 inh inhalation DAILY Qty: 180 4RF Rx Instructions: Rinse after use Follow Up: Shannon Gonzalez MD [Active Staff] - (Call Monday morning to schedule a post hospitalization follow up appointment. You may need a cardioversion on the future. ) Adam Del Valle DO [Primary Care Provider] - (Please call Monday to makea post hospitalization follow up appointment within 7-10 days ) Exam Physical Exam Vital Signs: Temp Pulse Resp BP Pulse Ox O2 Del Method O2 Flow Rate 97.5 F L 86 18 119/78 98 Nasal Cannula 2 02/04/24 12:40 02/04/24 13:35 02/04/24 13:35 02/04/24 12:40 02/04/24 12:40 02/04/24 12:40 02/04/24 12:40 Narrative: Pulmonary: Clear to auscultation bilaterally. No wheezing. Cardiac: Still in atrial fibrillation. Rate is controlled at about 70 bpm. No rubs or gallops to auscultation. Extremities: No edema in ankles bilaterally. No swelling or knots or cords in the calves bilaterally. GI: Bowel sounds are normal. Abdomen is soft and nontender to palpation. Negative and benign abdomen. Diagnostic Studies Completed and Pending Studies Labs on day of discharge: 02/04/24 07:45: Corrected WBC 7.7, Uncorrected WBC Count 7.7, RBC 3.74 L, Hgb 11.4 L, Hct 34.0 L, MCV 90.8, MCH 30.6, MCHC 33.7, RDW 14.1, Plt Count 246, MPV 7.8, Neut % (Auto) 72.1, Lymph % (Auto) 13.6, Lagrange % (Auto) 12.9, Eos % (Auto) 1.2, Baso % (Auto) 0.2, Nucleat RBC Rel Count 0.1, Neut # (Auto) 5.6, Lymph # (Auto) 1.1, Lagrange # (Auto) 1.0 H, Eos # (Auto) 0.1, Baso # (Auto) 0.0, PHA Creatinine Clear 86.96, Sodium 133 L, Potassium 4.4, Chloride 100, Carbon Dioxide 29.9, Anion Gap 7.5, BUN 22, Creatinine 0.88, Est GFR (CKD-EPI) > 60.0, Glucose 83, Calcium 8.7 Documented By: Silvano Reed DO 1414 Signed By: <Electronically signed by Silvano Reed DO> 02/04/[address] [facility] Work Phone: 1(251) 511-154909-22-2024 Progress note Author Shannon Gonzalez [facility] February 04, 2024 1:00pm Note Date/Time February 04, 2024 1:00pm [facility] [address] [place] [address] Cardiology Progress Note Signed Patient: Mary Mcadams MR#: [id number] : 1955 Acct:[id number] Age/Sex: 68 / M Adm Date: 4 Loc: 3T Room: [address] [place] [address] Type: ADM IN Attending Dr: Silvano Reed DO Copies to: ~ Date of Service: 02/04/2024 Subjective Principal diagnosis: Atrial fibrillation Interval history: Mr. Mcadams is a 68 year old male who is being seen at request of the hospitalist for atrial fibrillation with RVR. The patient followed previously with Dr. Alvares for history of LV systolic dysfunction. He has no history of atrial fibrillation. He was last seen this past summer. He has experienced symptoms of dyspnea for the last 2 weeks with no orthopnea PND or lower extremity edema. He had no chest pain and no palpitations. He presented to theemergency department and was found to be in atrial fibrillation with RVR, IV Cardizem was initiated and he was transferred here. His echocardiogram today demonstrated normal ejection fraction. No significant valvular heart disease. Patient has no known history of coronary artery disease but no recent investigation for that have been done. He is non-smoker and nondiabetic. At home he has been on carvedilol and Entresto. He has not been anticoagulated. There is no history of pulmonary disease, bleeding ulcers, cancer or any neurological disease. He has no history of PAD. He is currently resting comfortably. Daily progress note 02/04/2024: Patient is stable with controlled heart rate off of IV diltiazem. He had a short run of ventricular tachycardia. Echocardiogramrevealed ejection fraction 50-55% which is an improvement from previous recording. Patient can be discharged home today on carvedilol and continue Xarelto 20 mg daily. Cardioversion if necessary will be done several weeks downthe road. A follow-up in the office will be scheduled in the near future. Exam Physical Exam Vital Signs: Temp Pulse Resp BP Pulse Ox O2 Del Method O2 Flow Rate 97.5 F L 82 18 121/77 99 Nasal Cannula 2 02/04/24 08:35 02/04/24 09:20 02/04/24 09:20 02/04/24 08:35 02/04/24 08:35 02/04/24 08:40 02/04/24 08:40 Const General: cooperative, comfortable and no acute distress Nutritional Appearance: average body habitus Orientation: alert, awake and oriented x3 HEENT Head: normal to inspection, normocephalic and atraumatic Ears: hearing grossly normal bilaterally Nose: external nose normal Face and sinus: normal facial exam Eyes Conjunctivae: conjunctivae normal Pupils: PERRL Neck Neck: trachea midline and supple Neck mass: No Thyroid: thyroid normal Carotids: normal carotid upstroke Resp Effort & Inspection: normal respiratory effort Auscultation: clear to auscultation bilaterally Cardio Jugular venous pressure: no JVD Palpation: normal PMI Rate: regular rate Rhythm: abnormal rhythm irregularly irregular Heart Sounds: S1 normal and S2 normal GI Inspection: normal to inspection Palpation: soft and no hepatosplenomegaly Auscultation: normal bowel sounds Extrem General: no clubbing, cyanosis or edema Objective Labs 02/04/24 07:45 02/04/24 07:45 Labs: Laboratory Results - last 24 hr 02/04/24 07:45 Corrected WBC 7.7 Uncorrected WBC Count 7.7 RBC 3.74 L Hgb 11.4 L Hct 34.0 L MCV 90.8 MCH 30.6 MCHC 33.7 RDW 14.1 Plt Count 246 MPV 7.8 Neut % (Auto) 72.1 Lymph % (Auto) 13.6 Lagrange % (Auto) 12.9 Eos % (Auto) 1.2 Baso % (Auto) 0.2 Nucleat RBC Rel Count 0.1 Neut # (Auto) 5.6 Lymph # (Auto) 1.1 Lagrange # (Auto) 1.0 H Eos # (Auto) 0.1 Baso # (Auto) 0.0 PHA Creatinine Clear 86.96 Sodium 133 L Potassium 4.4 Chloride 100 Carbon Dioxide 29.9 Anion Gap 7.5 BUN 22 Creatinine 0.88 Est GFR (CKD-EPI) > 60.0 Glucose 83 Calcium 8.7 A&P - Cardiology (1) New onset atrial fibrillation: Assessment/Problem Details: Heart rate is currently under control on oral medications Plan: Discharge home today on current medications and follow-up in the office in the near future for possible cardioversion Code(s): I48.91 - Unspecified atrial fibrillation (2) Nonsustained paroxysmal ventricular tachycardia: Assessment/Problem Details: Asymptomatic and was a short run. 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 4 1256 Signed By: <Electronically signed by [facility] Shannon Gonzalez> 02/04/[address] [facility] Work Phone: 1(231) 920-861109-21-2024 Progress note Author Silvano Reed [facility] February 03, 2024 2:11pm Note Date/Time February 03, 2024 12:35pm [facility] [address] [place] [address] Hospitalist Progress Note Signed Patient: Mary Mcadams MR#: [id number] : 1955 Acct:[id number] Age/Sex: 68 / M Adm Date: 4 Loc: Room: [address] [place] [address] Type: ADM IN Attending Dr: Silvano Reed DO Copies to: ~ Date of Service: 02/03/2024 Subjective Subjective Narrative: Patient assessed awake and alert in bed today. He states that he was able to walk to and from the bathroom without difficulty, and he thinks his breathing has improved. He does not report feeling any episodes of palpitations. Exam Physical Exam Vital Signs: Temp Pulse Resp BP Pulse Ox O2 Del Method O2 Flow Rate 97.4 F L 60 18 120/84 99 Nasal Cannula 2 02/03/24 08:10 02/03/24 09:49 02/03/24 09:49 02/03/24 08:10 02/03/24 08:10 02/03/24 08:18 02/03/24 08:18 Narrative: GENERAL: Alert, oriented, comfortable HEENT: NC/AT, EOMI, PERRL, conjunctiva clear CARDIOVASCULAR: regular rate, irregular rhythm, no murmurs/rubs/gallops RESPIRATORY: nonlabored work of breathing CTAB, symmetric chest rise, no wheezes/rales/rhonci ABDOMEN: Soft, non-tender, non-distended, normal bowel sounds BACK: No midline or paraspinal tenderness EXTREMITIES: moving all extremities well. Well-perfused. Sensation intact. No edema SKIN: Intact, no rash, no trauma NEURO: Cranial nerves grossly intact, no focal neurologic signs PSYCHIATRIC: Good eye contact, appropriate mood and affect, cooperative Objective Lab Results 02/03/24 06:48 02/03/24 06:48 Meds Allergies and Active Meds Allergies No Known Allergies Allergy (Verified 10/23/23 15:04) Active Meds: Active Medications Generic Name Dose Route Start Last Admin Trade Name Angela PRN Reason Stop Dose Admin Albuterol 2.5 mg 02/02/24 18:00 02/03/24 09:47 Albuterol Neb 2.5 Mg/3 Ml Vial.Neb INHALATION 02/01/25 17:59 2.5 mg QID ALEX Administration Carvedilol 12.5 mg 02/02/24 21:00 02/03/24 08:18 Carvedilol 12.5 Mg Tablet PO 02/01/25 20:59 12.5 mg BID ALEX Administration Finasteride 5 mg 02/03/24 09:00 02/03/24 08:18 Finasteride 5 Mg Tablet PO 02/02/25 08:59 5 mg DAILY ALEX Administration Fluticasone Propionate 1 spray 02/03/24 09:00 02/03/24 08:18 Fluticasone Propionate Metz 120 Metz/16 Gm Bottle INTRANASAL 02/02/25 08:59 1 spray DAILY ALEX Administration Diltiazem HCl 100 mg in 100 mls @ 10 mls/hr 02/02/24 10:00 02/02/24 23:03 Cardizem IV 02/01/25 09:59 5 mg/hr .Q10H ALEX 5 mls/hr Titration Protocol 10 MG/HR Sodium Chloride 1,000 mls @ 20 mls/hr 02/02/24 10:00 02/02/24 10:37 0.9% Sodium Chloride 1,000 Ml IV 02/01/25 09:59 20 mls/hr .Q24H ALEX Administration Latanoprost 1 drops 02/03/24 09:00 02/03/24 08:18 Latanoprost 0.005% Op Soln 50 Drops/2.5 Ml Bottle EYE-BOTH 02/02/25 08:59 1drops DAILY ALEX Administration Non-Formulary Medication 1 inh 02/03/24 09:00 [id number] [Trelegy Ellipta] INHALATION 02/02/25 08:59 DAILY ALEX Pantoprazole Sodium 40 mg 02/03/24 09:00 02/03/24 08:18 Pantoprazole 40 Mg Tablet. PO 02/02/25 08:59 40 mg DAILY ALEX Administration Prednisone 5 mg 02/03/24 09:00 02/03/24 08:18 Prednisone 5 Mg Tablet PO 02/02/25 08:59 5 mg DAILY ALEX Administration Sacubitril/Valsartan 1 tab 02/02/24 21:00 02/03/24 08:18 Sacubitril/Valsartan 24-26mg 1 Tab Tablet PO 02/01/25 20:59 1 tab BID ALEX Administration Tamsulosin HCl 0.4 mg 02/02/24 21:00 02/03/24 08:18 Tamsulosin 0.4 Mg Cap.Er.24h PO 02/01/25 20:59 0.4 mg BID ALEX Administration A&P - Hospitalist Assessment/Plan (1) New onset atrial fibrillation: (2) Atrial fibrillation with RVR: (3) Pulmonary sarcoidosis: (4) Cardiac sarcoidosis: (5) Nonischemic cardiomyopathy: (6) Chronic HFrEF (heart failure with reduced ejection fraction): (7) Hypertension: (8) Benign prostatic hyperplasia with lower urinary tract symptoms: (9) Acoustic neuroma: Plan New onset atrial fibrillation - Accepted inpatient transfer from [facility] - Currently hemodynamically stable - BNP 239. - Stat EKG shows afib. - Cardizem drip -titrate for heart rate between 70 and 90 bpm. - Trans thoracic echocardiogram pending. - Telemetry event log shows 8 beats of VTach at 03:48. - We clarified with Dr. 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 - Cardiology consult placed, will follow recommendations Recent symptomatology of progressive dyspnea, and dyspnea on exertion. BNP level at the [facility] was extremely high at 2166. - Cardiology consultation. 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 FCI conditions: Chronic hypoxic respiratory failure - continue 2 liters by NE as at home. Take medications as directed unless otherwise specified: Pulmonary/cardiac sarcoidosis - Trelegy, albuterol, prednisone, breathing treatments Hypertension and chronic HFrEF - Entresto, carvedilol BPH - Continue flomax, straight cath BID GERD - Pantoprazole +++ +++ Attending attestation: Seen on rounds this morning patient has a nice slow heart rate at about 55 to 65bpm. The Cardizem drip continues to be running at 5 mg/h. I confirm with the nursing staff that he did get his home doses of Coreg last night and this morning. I called the bedside nurse to indicate that the patient can have the Cardizem drip stopped while waiting for cardiology to see him and enter their orders today. I personally examined the patient on this day of the encounter. I reviewed the relevant history, performed the gracia elements of the physical examination, and coordinated the plan of care and I confirmed the resident's medical documentation as written. - - - Silvano Reed DO. Internal Medicine + Hospitalist attending physician. Documented By: Silvano Reed DO [id number] Signed By: <Electronically signed by Silvano Reed DO> 02/03/24 1411 <Electronically signed by DO MAIA Billy> 02/03/[address] [facility] Work Phone: 1(783) 455-405609-21-2024 Consult note Author Shannon Gonzalez [facility] February 03, 2024 1:43pm Note Date/Time February 03, 2024 1:38pm [facility] [address] [place] [address] Cardiology Consult Note Signed Patient: Mary Mcadams MR#: [id number] : 1955 Acct:[id number] Age/Sex: 68 / M Adm Date: 4 Loc: Room: [address] [place] [address] Type: ADM IN Attending Dr: Silvano Reed DO Copies to: DO Shannon Waller MD, FACC Silvano Reed DO~ Cardiology HPI History of Present Illness Consult Date: 02/03/24 Reason for Consult: Atrial fibrillation with RVR HPI: Mr. Mcadams is a 68 year old male who is being seen at request of the hospitalist for atrial fibrillation with RVR. The patient followed previously with Dr. Alvares for history of LV systolic dysfunction. He has no history of atrial fibrillation. He was last seen this past summer. He has experienced symptoms of dyspnea for the last 2 weeks with no orthopnea PND or lower extremity edema. He had no chest pain and no palpitations. He presented to theemergency department and was found to be in atrial fibrillation with RVR, IV Cardizem was initiated and he was transferred here. His echocardiogram today demonstrated normal ejection fraction. No significant valvular heart disease. Patient has no known history of coronary artery disease but no recent investigation for that have been done. He is non-smoker and nondiabetic. At home he has been on carvedilol and Entresto. He has not been anticoagulated. There is no history of pulmonary disease, bleeding ulcers, cancer or any neurological disease. He has no history of PAD. He is currently resting comfortably. Review of Systems Review of Systems Review of systems: 11 point review of system essentially unremarkable [facility] Medical History Cardiac sarcoidosis Bullous emphysema History of aspergilloma Pulmonary sarcoidosis Personal history of colonic polyps Sarcoidosis of lung Benign prostatic hyperplasia with lower urinary tract symptoms Acoustic neuroma Chronic HFrEF (heart failure with reduced ejection fraction) Hypertension Lumbar spondylosis Gastroesophageal reflux disease with esophagitis without hemorrhage Diverticulosis Chronic respiratory failure with hypoxia Nonischemic cardiomyopathy Hyponatremia Surgical History H/O colonoscopy (~10/2021) repeat 5 years History of arthroscopic knee surgery Family History Brother Heart disease Legacy FamHx Relation: Brother(s) Father Cancer Legacy FamHx Problem: Diagnosed with Cancer Mother Heart disease Social History Smoking Status: Never smoker Substance Use Type: None Social History Comments: Son and son's significant other Meds Medications and Allergies Allergies No Known Allergies Allergy (Verified 10/23/23 15:04) Home Medications sacubitril 24 mg-valsartan 26 mg tablet (Entresto) 1 tab PO BID 05/11/18 [History Confirmed 02/02/24] albuterol sulfate 2.5 mg/3 mL (0.083 %) solution for nebulization 2.5 mg inhalation QID 09/08/23 [History Confirmed 02/02/24] finasteride 5 mg tablet 5 mg PO DAILY 09/08/23 [History Confirmed 02/02/24] fluticasone propionate 50 mcg/actuation nasal spray,suspension 1 spray intranasal DAILY 09/08/23 [History Confirmed 02/02/24] pantoprazole 40 mg tablet,delayed release 40 mg PO DAILY 09/08/23 [History Confirmed 02/02/24] prednisone 5 mg tablet 5 mg PO DAILY 09/08/23 [History Confirmed 02/02/24] tamsulosin 0.4 mg capsule 0.4 mg PO BID 09/08/23 [History Confirmed 02/02/24] carvedilol 12.5 mg tablet 12.5 mg PO BID 10/12/23 [History Confirmed 02/02/24] latanoprost 0.005 % eye drops 1 drp ophthalmic (eye) DAILY 10/12/23 [History Confirmed 02/02/24] Oxygen 10/23/23 [History Confirmed 02/02/24] albuterol sulfate 90 mcg/actuation aerosol inhaler See Rx Instructions .Route .COMPLEX #18 grams 10/23/23 [Rx Confirmed 02/02/24] fluticasone fur. 200 mcg-umeclid 62.5 mcg-vilant 25 mcg inhalat.powder (Trelegy Ellipta) 1 inh inhalation DAILY #180 ea 10/23/23 [Rx Confirmed 02/02/24] ipratropium 0.5 mg-albuterol 3 mg (2.5 mg base)/3 mL nebulization soln 3 ml inhalation QID 30 days #360 mL 01/30/24 [Rx Confirmed 02/02/24] fluticasone 500 mcg-salmeterol 50 mcg/dose blistr powdr for inhalation inhalation 02/02/24 [History] Exam Physical Exam Vital Signs: Temp Pulse Resp BP Pulse Ox O2 Del Method O2 Flow Rate 97.2 F L 63 20 108/72 99 Nasal Cannula 2 02/03/24 11:30 02/03/24 11:30 02/03/24 11:30 02/03/24 11:30 02/03/24 11:30 02/03/24 11:30 02/03/24 11:30 Const General: cooperative, comfortable and no acute distress Nutritional Appearance: average body habitus Orientation: alert, awake and oriented x3 HEENT Head: normal to inspection, normocephalic and atraumatic Ears: hearing grossly normal bilaterally Nose: external nose normal Face and sinus: normal facial exam Eyes Conjunctivae: conjunctivae normal Pupils: PERRL Neck Neck: trachea midline and supple Neck mass: No Thyroid: thyroid normal Carotids: normal carotid upstroke Resp Effort & Inspection: normal respiratory effort Auscultation: clear to auscultation bilaterally Cardio Jugular venous pressure: no JVD Palpation: normal PMI Rate: regular rate Rhythm: abnormal rhythm irregularly irregular Heart Sounds: S1 normal and S2 normal GI Inspection: normal to inspection Palpation: soft and no hepatosplenomegaly Auscultation: normal bowel sounds Extrem General: no clubbing, cyanosis or edema Results - Cardiology Labs 02/03/24 06:48 02/03/24 06:48 Lab results: Cardiac Enzymes 02/03/24 Range/Units 06:48 AST 10 L (13-39) U/L B-Natriuretic Peptide 239.0 H (5-100) pg/mL Lipids 02/03/24 Range/Units 06:48 Triglycerides 37 (0-149) mg/dL Cholesterol 144 (140-200) mg/dL HDL Cholesterol 73 (23-92) mg/dL Cholesterol/HDL Ratio 2.0 (<5.0) CBC 02/03/24 Range/Units 06:48 RBC 3.71 L (3.90-5.60) X10E6/uL Hgb 11.4 L (13.0-17.0) g/dL Hct 34.1 L (38.8-50.0) % Plt Count 259 (150-450) x10E3/uL Neut # (Auto) 8.6 H (1.8-7.7) x10E3/uL Lymph # (Auto) 0.5 L (1.00-4.8) x10E3/uL [place] # (Auto) 0.9 H (0.0-0.8) x10E3/uL Eos # (Auto) 0.0 (0.0-0.45) x10E3/uL Baso # (Auto) 0.0 (0.0-0.2) x10E3/uL Comprehensive Metabolic Panel 02/03/24 Range/Units 06:48 Sodium 133 L (136-145) mmol/L Potassium 4.5 (3.5-5.1) mmol/L Chloride 99 (98-107) mmol/L Carbon Dioxide 29.2 (21.0-31.0) mmol/L BUN 27 H (7-25) mg/dL Creatinine 0.98 (0.70-1.30) mg/dL Glucose 123 H (70-100) mg/dL Calcium 9.0 (8.6-10.3) mg/dL Direct Bilirubin 0.10 (0.03-0.18) mg/dL Indirect Bilirubin 0.5 mg/dL AST 10 L (13-39) U/L ALT 7 (7-52) U/L Alkaline Phosphatase 62 (34-104) U/L Total Protein 6.2 L (6.4-8.9) gm/dL Albumin 3.6 (3.5-5.7) gm/dL Intake and Output 02/02/24 02/03/24 02/03/24 23:59 07:59 15:59 Intake Total 750 / 750 550 / 550 Balance 750 / 750 550 / 550 Intake: IV 100 / 100 dilTIAZem 100 MG -*NaCl* 100 mg 100 / 100 In 100 ml @ 10 MG/HR 10 mls/hr IV .Q10H [facility] Rx#:[id number] Oral 650 / 650 550 / 550 Other: # Unmeasured Voids 2 3 # Bowel Movements 2 Weight 76.8 kg Date of Last Bowel Movement 02/02/24 02/02/24 Patient Weight 02/03/24 23:59 Weight 76.8 kg Lab 02/03/24 06:48 PT 11.7 INR 1.0 APTT 30.2 A&P - Cardiology (1) New onset atrial fibrillation: Assessment/Problem Details: Heart rate is currently under control Plan: Start Xarelto 20 mg daily, continue carvedilol, can be discharged home tomorrow or if necessary this afternoon, he will follow-up in the office in the near future. Code(s): I48.91 - Unspecified atrial fibrillation Documented By: Shannon Gonzalez MD, [facility] 4 1334 Signed By: <Electronically signed by MD POOL Gonzalez> 02/03/24 1349 [facility] Work Phone: 1(830) 841-896909-20-2024 History and physical note Author Silvano Reed [facility] February 02, 2024 3:17pm Note Date/Time February 02, 2024 12:05pm [facility] [address] [place] [address] Hospitalist H&P Signed Patient: Mary Mcadams MR#: [id number] : 1955 Acct:[id number] Age/Sex: 68 / M Adm Date: 4 Loc: Room: [address] [place] [address] Type: ADM IN Attending Dr: Silvano Reed DO Copies to: Rubin Billy DO, MAIA Del Valle,DO Silvano Reed DO~ HPI DATE OF EXAMINATION: 02/02/24 CHIEF COMPLAINT: New onset afib HISTORY OF PRESENT ILLNESS: Patient is a 68-year-old male with past medical history of nonischemic cardiomyopathy, sarcoidosis, BPH, hypertension, acoustic neuroma who presented to [facility] on 01/31 with complaint of new onset shortness of breath. Hestates that he was at home and started feeling short of breath, especially with exertion, and he thought he would fall if he walked. He has never had an episodelike this before, and he has been taking his medications as directed prior to presenting to the hospital. He was diagnosed with Afib w/ RVR at [facility] and transferred to [facility] as an inpatient on 02/01. His medications seem to help with his pulmonary issues, but he thinks his shortness of breath has been worsening over the past 2 months. He last saw his client care manager, Dr. Alvares in October 2023. Per his note 10/13/23, echo from 8 years previously showed EF of 45%. He last saw pulmonology in August 2023, switched hisWixela to Trelegy. Review of Systems Review of Systems All other systems reviewed & are negative unless noted below or in HPI Review of systems: Dr Reed documentation: 10 systems are reviewed and are negative except as mentioned elsewhere in this document. Constitutional Constitutional: Reports system reviewed and no additional complaints, except as documented Eyes Comments: Blindness R eye Cardiovascular Cardiovascular: Reports chest pain with activity, Reports dyspnea on exertion, Reports irregular heart rhythm and Denies leg edema Respiratory Respiratory: Reports dyspnea Gastrointestinal Gastrointestinal: Reports system reviewed and no additional complaints, except as documented Genitourinary Genitourinary: Reports difficulty urinating Musculoskeletal Musculoskeletal: Reports system reviewed and no additional complaints, except asdocumented Integumentary/Breasts Skin/Breast: Reports system reviewed and no additional complaints, except as documented Neurologic Neurologic: Reports abnormal hearing (L side) Psychiatric Psychiatric: Reports system reviewed and no additional complaints, except as documented Endocrine Endocrine: Reports system reviewed and no additional complaints, except as documented Hematologic/Lymphatic Hematologic/Lymphatic: Reports system reviewed and no additional complaints, except as documented Allergic/Immunologic Allergic/Immunologic: Reports system reviewed and no additional complaints, except as documented [facility] Medical History Cardiac sarcoidosis Bullous emphysema History of aspergilloma Pulmonary sarcoidosis Personal history of colonic polyps Sarcoidosis of lung Benign prostatic hyperplasia with lower urinary tract symptoms Acoustic neuroma Chronic HFrEF (heart failure with reduced ejection fraction) Hypertension Lumbar spondylosis Gastroesophageal reflux disease with esophagitis without hemorrhage Diverticulosis Chronic respiratory failure with hypoxia Nonischemic cardiomyopathy Hyponatremia Surgical History H/O colonoscopy (~10/2021) repeat 5 years History of arthroscopic knee surgery Family History Brother Heart disease Legacy FamHx Relation: Brother(s) Father Cancer Legacy FamHx Problem: Diagnosed with Cancer Mother Heart disease Social History Smoking Status: Never smoker Substance Use Type: None Social History Comments: Son and son's significant other Meds Medications and Allergies Allergies No Known Allergies Allergy (Verified 10/23/23 15:04) Home Medications sacubitril 24 mg-valsartan 26 mg tablet (Entresto) 1 tab PO BID 05/11/18 [History Confirmed 02/02/24] albuterol sulfate 2.5 mg/3 mL (0.083 %) solution for nebulization 2.5 mg inhalation QID 09/08/23 [History Confirmed 02/02/24] finasteride 5 mg tablet 5 mg PO DAILY 09/08/23 [History Confirmed 02/02/24] fluticasone propionate 50 mcg/actuation nasal spray,suspension 1 spray intranasal DAILY 09/08/23 [History Confirmed 02/02/24] pantoprazole 40 mg tablet,delayed release 40 mg PO DAILY 09/08/23 [History Confirmed 02/02/24] prednisone 5 mg tablet 5 mg PO DAILY 09/08/23 [History Confirmed 02/02/24] tamsulosin 0.4 mg capsule 0.4 mg PO BID 09/08/23 [History Confirmed 02/02/24] carvedilol 12.5 mg tablet 12.5 mg PO BID 10/12/23 [History Confirmed 02/02/24] latanoprost 0.005 % eye drops 1 drp ophthalmic (eye) DAILY 10/12/23 [History Confirmed 02/02/24] Oxygen 10/23/23 [History Confirmed 02/02/24] albuterol sulfate 90 mcg/actuation aerosol inhaler See Rx Instructions .Route .COMPLEX #18 grams 10/23/23 [Rx Confirmed 02/02/24] fluticasone fur. 200 mcg-umeclid 62.5 mcg-vilant 25 mcg inhalat.powder (Trelegy Ellipta) 1 inh inhalation DAILY #180 ea 10/23/23 [Rx Confirmed 02/02/24] ipratropium 0.5 mg-albuterol 3 mg (2.5 mg base)/3 mL nebulization soln 3 ml inhalation QID 30 days #360 mL 01/30/24 [Rx Confirmed 02/02/24] Exam Physical Exam Vital Signs: Temp Pulse Resp BP Pulse Ox O2 Del Method O2 Flow Rate 97.6 F 88 18 125/91 99 Nasal Cannula 2 02/02/24 09:43 02/02/24 10:37 02/02/24 09:43 02/02/24 10:37 02/02/24 09:43 02/02/24 10:16 02/02/24 10:16 Narrative: GENERAL: Alert, oriented, comfortable HEENT: NC/AT, EOMI, PERRL, conjunctiva clear CARDIOVASCULAR: Irregular rate, normal rhythm, no murmurs/rubs/gallops RESPIRATORY: nonlabored work of breathing CTAB, symmetric chest rise, no wheezes/rales/rhonci ABDOMEN: Soft, non-tender, non-distended, normal bowel sounds BACK: No midline or paraspinal tenderness EXTREMITIES: moving all extremities well. Well-perfused. Sensation intact. No edema SKIN: Intact, no rash, no trauma NEURO: Cranial nerves grossly intact, no focal neurologic signs PSYCHIATRIC: Good eye contact, appropriate mood and affect, cooperative KARL Risk Score KARL Risk Score Predictor Historical: Age > 65 Years Old Score Risk Score (0-7): 1 Assessment & Plan Assessment/Plan (1) New onset atrial fibrillation: (2) Atrial fibrillation with RVR: (3) Pulmonary sarcoidosis: (4) Cardiac sarcoidosis: (5) Nonischemic cardiomyopathy: (6) Chronic HFrEF (heart failure with reduced ejection fraction): (7) Hypertension: (8) Benign prostatic hyperplasia with lower urinary tract symptoms: (9) Acoustic neuroma: Plan New onset atrial fibrillation - Accepted inpatient transfer from [facility] - Currently hemodynamically stable - BNP 2166 - Stat EKG shows afib - Cardizem drip -titrate for heart rate between 70 and 90 bpm. - Trans thoracic echocardiogram. - Cardiology consult placed, will follow recommendations Recent symptomatology of progressive dyspnea, and dyspnea on exertion. BNP level at the [facility] was extremely high at 2166. -Cardiology consultation. -Awaiting echocardiogram. FCI conditions: Chronic hypoxic respiratory failure - continue 2 liters by NE as at home. Take medications as directed unless otherwise specified: Pulmonary/cardiac sarcoidosis - Trelegy, albuterol, prednisone, breathing treatments Hypertension and chronic HFrEF - Entresto, carvedilol BPH - Continue flomax, straight cath BID GERD - Pantoprazole +++ +++ I personally examined the patient on this day of the encounter. I reviewed the relevant history, performed the gracia elements of the physical examination, and coordinated the plan of care and I confirmed the resident's medical documentation as written. - - - Silvano Reed DO. Internal Medicine + Hospitalist attending physician. The patient reports that nearly a decade ago on imaging of his heart they thought that there was a clot and he was started on a blood thinner. But hehad severe problems with hemoptysis and the blood thinner was stopped. Later itwas determined that what they saw on his heart was cardiac sarcoidosis - per thepatient's report. Therefore at this time I will not start anticoagulation, butdefer this to cardiology input, especially after echocardiogram is obtained. IP vs OBS Justification Based on differential dx, clinical care plan, and risk of adverse events, if untreated, in my clinical judgement this patient requires an acute care setting as: INPATIENT because of an expectation of an over 2 midnight stay. Estimated length of stay (# of days): 2 Documented By: Silvano Reed DO 1051 Signed By: <Electronically signed by Silvano Reed DO> 02/02/24 1517 <Electronically signed by DO RES Rubin Billy> 02/02/[address] [facility] Work Phone: 1(801) 244-979605-31-2024 History of Present illness Narrative* Steven Alvares MD - 10/13/2023 1:30 PM EDT Subjective Mary Mcadams is a 68 y.o. male Chief Complaint [...] puffs every 4 hours if needed., Disp: ,Rfl: carvedilol (Coreg) 12.5 mg tablet, Take 1 [...] By signing my name below, I, Beverley RobertsonNiecy SOTO , Scribe attest that this documentation has been prepared under the direction and in the presence of Lissa Alvares MD. Provider Attestation - Scribe documentation All medical record entries made by the Scribe were at my direction and personally dictated by me. Ihave reviewed the chart and agree that the record accurately reflects my personal performance of the history, physical exam, discussion and plan. [facility] Work Phone: 1(931) 443-790405-31-2024 Instructions* Patient Instructions* Beverley Morse LPN - 10/13/2023 1:30 PM [...] time of your visit. [facility] Work Phone: 1(382) 952-235204-01-2024 Hospital Discharge instructions Patient Education 08/14/2023 16:09:27 [...] urethra. Follow these instructions at home: Take abmy-qji-aetcnvp and prescription medicines only as told by [...] provider. Document Revised: 11/17/2021 Document Reviewed: 11/17/2021 [employer] Patient Education 2022 [employer]. 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 [employer] Other 07-23-2023 Evaluation note* Encounter Date Diagnosis Assessment Notes Treatment Notes Treatment Clinical Notes Nov, Acoustic neuroma (ICD-10 - D33.3) MRI: [id number] left IAC - 12/2021 (no change from 2016) [employer] Other 07-17-2023 Hospital Discharge instructions Patient Education [...] and water are not available, use hand court officer. 2.Clean your penis with soap and water. [...] reusable catheter in a small bathroom. Take vopo-dba-tnoxywz and prescription medicines only as told by [...] provider. Document Revised: 03/07/2022 Document Reviewed: 03/07/2022 [employer] Patient Education 2022 [employer]. 11/28/2022 14:00:56 Benign Prostatic Hyperplasia Benign Prostatic [...] urethra. Follow these instructions at home: Take hnfh-ocw-zpigtbo and prescription medicines only as told by [...] provider. Document Revised: 11/17/2021 Document Reviewed: 11/17/2021 [employer] Patient Education 2022 [employer]. Follow Up Care 02/14/2022 12:45:59 With:EMERSON SALMON, Clinton Hernandez, URL Address: [facility] [address], [place] [address]- [phone] When: Unknown Comments:6 mos w/ PSA [facility] 05-16-2023 Evaluation note* Encounter Date Diagnosis Assessment Notes Treatment Notes Treatment Clinical Notes September, Chronic obstructive pulmonary disease, unspecified (ICD-10 - J44.9) [employer] Other 04-20-2023 Evaluation note* Encounter Date Diagnosis [...] with reduced ejection fraction) (ICD-10 - I50.22) [employer] Other 10-03-2022 Hospital Discharge instructions Patient Education 02/14/2022 12:20:02 Acute Urinary Retention, Male, Iddm-ah-Ghsl Acute Urinary Retention, Male Acute urinary retention means that you cannot pee (urinate) at all, or that you pee too little and your bladder is not emptied completely. If it is not treated, it can lead to kidney damage or other serious problems. Follow these instructions at home: Take usvi-pyy-vkrpqfu and prescription medicines only as told by [...] 10/17/2008 Document Revised: 07/18/2019 Document Reviewed: 06/02/2017 [employer] Patient Education 2019 [employer]. Follow Up Care 08/09/2021 13:00:29 With:EMERSON SALMON, Clinton Hernandez, URL Address: [facility] [address] [place] [address]- [phone] When:08/15/2022 [facility] 06-14-2022 History and physical note Author Gregg Hilliard [facility] October 26, 2021 10:26am Note Date/Time October 26, 2021 10:1 5am [facility] [address] [place], [place] [id number] Gastroenterology H&P Signed Patient: Mary Mcadams MR#: [id number] : 1955 Acct:[id number] Age/Sex: 66 / M Adm Date: 2 Loc: Room: Type: [facility] Attending Dr: Gregg Hilliard DO Copies to: DO Gregg Waller Jr, DO~ Date of Service: 10/26/2021 Gastroenterology HPI History of Present Illness HPI: Mr. Mcadams is a 66 year old male for [...] by Gregg Hilliard Jr, > 10/26/21 1026 [facility] Work Phone: 1(109) 696-264306-14-2022 Procedure [facility]05-26-2022 Evaluation note* Encounter Date Diagnosis Assessment Notes Treatment Notes Treatment Clinical Notes September, History of colon polyps (ICD-10 - Z86.010) September, Anemia, unspecified type (ICD-10 - D64.9) [employer] Other 05-24-2022 Evaluation note* Encounter Date Diagnosis Assessment Notes Treatment Notes Treatment Clinical Notes September, Chronic obstructive pulmonary disease, unspecified (ICD-10 - J44.9) [employer] Other 04-06-2022 Evaluation note* Encounter Date Diagnosis Assessment Notes Treatment Notes Treatment Clinical Notes Aug, Sarcoidosis of lung (ICD-10 - D86.0) Aug, Other interstitial pulmonary diseases with fibrosis in diseases classified elsewhere (ICD-10 - J84.17) Aug, Chronic obstructive pulmonary disease, unspecified (ICD-10 - J44.9) [employer] Other 03-28-2022 Hospital Discharge instructions Patient Education [...] and water are not available, use hand court officer. 2.Prepare the supplies that you will use [...] reusable catheter in a small bathroom. Take pmcu-sbs-fymhwng and prescription medicines only as told by [...] 06/03/2011 Document Revised: 08/21/2019 Document Reviewed: 12/20/2018 [employer] Patient Education 2020 [employer]. 08/09/2021 12:46:36 Benign Prostatic Hyperplasia Benign Prostatic [...] urethra. Follow these instructions at home: Take qjll-dgn-ikrrnpv and prescription medicines only as told by [...] 05/01/2006 Document Revised: 03/26/2019 Document Reviewed: 06/05/2017 [employer] Patient Education 2020 [employer]. Follow Up Care 04/05/2021 12:45:32 With:Clinton NORMAN MD, URL Address: [facility] [address] [place] [address]- [phone] When:02/09/2022 Comments:6 months w PSA [facility] evaluation + Plan note Future Appointments Appointment Date:02/14/2022 11:45:00 AM Scheduled Provider:Clinton NORMAN MD Location:[facility] Appointment Type:URO Office Visit Diagnostic Tests Pending * PSA Total 08/09/21 [facility] evaluation + Plan note Future Appointments Appointment Date:09/05/2022 02:15:00 PM Scheduled Provider:Clinton NORMAN MD Location:[facility] Appointment Type:URO Office Visit [facility] evaluation + Plan note Future Appointments Appointment Date:06/05/2023 12:45:00 PM Scheduled Provider:Clinton NORMAN MD Location:[facility] Appointment Type:URO Office Visit Diagnostic Tests Pending * PSA Total 11/28/22 [facility] evaluation + Plan note Future Appointments Appointment Date:02/19/2024 01:15:00 PM Scheduled Provider:Clinton NORMAN MD Location:[facility] Appointment Type:URO Office Visit Diagnostic Tests Pending * PSA Total 08/14/23 [facility] evaluation noteNo assessment information available [facility] Work Phone: Evaluation note* Diagnosis Onset Date Resolution Status Anemia acute Personal history of colonic polyps acute [facility] Work Phone: evaluation noteNo InformationNonort[facility] [employer] Other Evaluation note* Diagnosis Non-ischemic cardiomyopathy (Multi)- Primary Other primary cardiomyopathies LV (left ventricular) mural thrombus Acute myocardial infarction, unspecified site, episode of care unspecified Diastolic dysfunction Unspecified heart disease Pulmonary sarcoidosis (Multi) Sarcoidosis Imbalance Abnormality of gait BMI 23.0-23.9, adult documented in this encounter [facility] Work Phone: Evaluation note* Diagnosis Onset Date Resolution Status Acoustic neuroma acute Anticoagulated acute Atrial fibrillation with RVR acute Benign prostatic hyperplasia with lower urinary tract symptoms acute Cardiac sarcoidosis acute Chronic HFrEF (heart failure with reduced ejection fraction) acute Hypertension acute New onset atrial fibrillation acute Nonsustained paroxysmal ventricular tachycardia acute Pulmonary sarcoidosis acute Nonischemic cardiomyopathy c hronic [facility] Work Phone: Evaluation note* Diagnosis Onset Date Resolution Status Acoustic neuroma acute Anticoagulated acute Benign prostatic hyperplasia with lower urinary tract symptoms acute Cardiac sarcoidosis acute Chronic HFrEF (heart failure with reduced ejection fraction) acute Hypertension acute New onset atrial fibrillation acute Pulmonary sarcoidosis acute Nonischemic cardiomyopathy c hronic Atrial fibrillation with RVR resolved Nonsustained paroxysmal ventricular tachycardia resolved Anticoagulated acute Atrial fibrillation acute Chronic HFrEF (heart failure with reduced ejection fraction) acute Hypertension acute Sarcoidosis of lung resolved Nonischemic cardiomyopathy c onic [facility] Work Phone: Evaluation note* Diagnosis Onset Date Resolution Status Acoustic neuroma acute Anticoagulated acute Benign prostatic hyperplasia with lower urinary tract symptoms acute Cardiac sarcoidosis acute Chronic HFrEF (heart failure with reduced ejection fraction) acute Hypertension acute New onset atrial fibrillation acute Pulmonary sarcoidosis acute Nonischemic cardiomyopathy c hronic Atrial fibrillation with RVR resolved Nonsustained paroxysmal ventricular tachycardia resolved Atrial fibrillation acute Chronic HFrEF (heart failure with reduced ejection fraction) acute Hypertension acute Rectal bleeding acute Nonischemic cardiomyopathy c hronic Sarcoidosis of lung resolved Acute on chronic clinical systolic heart failure acute Shortness of breath acute [facility] Work Phone: Evaluation note* Diagnosis Onset Date Resolution Status Acoustic neuroma acute Anticoagulated acute Benign prostatic hyperplasia with lower urinary tract symptoms acute Cardiac sarcoidosis acute Chronic HFrEF (heart failure with reduced ejection fraction) acute Hypertension acute New onset atrial fibrillation acute Pulmonary sarcoidosis acute Nonischemic cardiomyopathy c hronic Atrial fibrillation with RVR resolved Nonsustained paroxysmal ventricular tachycardia resolved Atrial fibrillation acute Chronic HFrEF (heart failure with reduced ejection fraction) acute Hypertension acute Rectal bleeding acute Nonischemic cardiomyopathy c hronic Sarcoidosis of lung resolved Acute on chronic clinical systolic heart failure acute Alcohol dependence acute Atrial fibrillation acute Bullous emphysema acute Hypertension acute Lower extremity edema acute Pulmonary sarcoidosis acute Shortness of breath acute Chronic respiratory failure with hypoxia chronic Hyponatremia chronic [facility] Work Phone: Hiscvmw general Narrative - Reported* Type Description Date Medical History sarcoidosis Medical History Lung disease Medical History COPD Surgical History mediastinoscopy Hospitalization History when on coumadin he was bleeding out Hospitalization History Breathing Problems [facility] 06/2018 [employer] Other Hiszche general Narrative - Reported* Type Description Date Medical History sarcoidosis Medical History Lung disease Medical History COPD Surgical History mediastinoscopy Surgical History COLONOSCOPY Surgical History EGD Hospitalization History when on coumadin he was bleeding out Hospitalization History Breathing Problems [facility] 06/2018 [employer] Other History of Present illness NarrativePatient returns [...] changes in medical therapy and follow-up next year.[facility] Wallit DO Work Phone: Hospital course Narrative No data available for this section [facility] progress note No data available for this section [facility] reason for referral (narrative)* Consultation (Routine) - Authorized Specialty Diagnoses / Procedures Referred By Contac t Referred To Contact Cardiology Diagnoses Non-ischemic cardiomyopathy (Multi) Procedures Follow Up In Cardiology Steven Alvares MD [address] [place], [place] [address] [address] Shannon Gonzalez MD [address] [place] [address] [address] Referral ID Status Reason Start Date Expiration Date V isits Requested Visits Authorized [id number] Authorized 10/13/2023 10/12/2024 1 1 [facility] Work Phone: Summary Purpose Family History No [...] Condition Age at Onset Recorded Date/T dulce brother Heart disease Unknown father Malignant neoplasm Unknown Unknown mother Unknown Heart disease Unknown Relationship Condition Age at Onset Recorded Date/T dulce brother Heart disease Unknown father Malignant neoplasm Unknown Unknown mother Unknown Heart disease Unknown Myocardial infarction Unknown Diabetes mellitus Unknown Advance Directives No Advanced Directives Records Found Advance Directive Response Recorded Date/ Time Advance Directives No April 9:38pm Chief Complaint MARY MCADAMS is being seen for a 6 month follow-up of. Chief Complaint and Reason for Visit Chief Complaint Anemia, Hx of Colon Polyps Chief Complaint Anemia, Hx of Colon Polyps Anemia, Hx of Colon Polyps Reason for Visit Anemia Personal history of colonic polyps Chief Complaint New Onset Afib, CHF Exacerbation Reason for Visit Acoustic neuroma Anticoagulated Atrial fibrillation with RVR Benign prostatic hyperplasia with lower urinary tract symptoms Cardiac sarcoidosis Chronic HFrEF (heart failure with reduced ejection fraction) Hypertension New onset atrial fibrillation Nonsustained paroxysmal ventricular tachycardia Pulmonary sarcoidosis Nonischemic cardiomyopathy Chief Complaint New Onset Afib, CHF Exacerbation Amb Documentation Amb Documentation Hosp f/u Reason for Visit Acoustic neuroma Anticoagulated Benign prostatic hyperplasia with lower urinary tract symptoms Cardiac sarcoidosis Chronic HFrEF (heart failure with reduced ejection fraction) Hypertension New onset atrial fibrillation Pulmonary sarcoidosis Nonischemic cardiomyopathy Atrial fibrillation with RVR Nonsustained paroxysmal ventricular tachycardia Anticoagulated Atrial fibrillation Chronic HFrEF (heart failure with reduced ejection fraction) Hypertension Sarcoidosis of lung Nonischemic cardiomyopathy Chief Complaint New Onset Afib, CHF Exacerbation Amb Documentation Amb Documentation Hosp f/u has Afib, SOB Reason for Visit Acoustic neuroma Anticoagulated Benign prostatic hyperplasia with lower urinary tract symptoms Cardiac sarcoidosis Chronic HFrEF (heart failure with reduced ejection fraction) Hypertension New onset atrial fibrillation Pulmonary sarcoidosis Nonischemic cardiomyopathy Atrial fibrillation with RVR Nonsustained paroxysmal ventricular tachycardia Atrial fibrillation Chronic HFrEF (heart failure with reduced ejection fraction) Hypertension Rectal bleeding Nonischemic cardiomyopathy Sarcoidosis of lung Acute on chronic clinical systolic heart failure Shortness of breath Chief Complaint New Onset Afib, CHF Exacerbation Amb Documentation Amb Documentation Hosp f/u has Afib, SOB Amb Documentation Amb Documentation Reason for Visit Acoustic neuroma Anticoagulated Benign prostatic hyperplasia with lower urinary tract symptoms Cardiac sarcoidosis Chronic HFrEF (heart failure with reduced ejection fraction) Hypertension New onset atrial fibrillation Pulmonary sarcoidosis Nonischemic cardiomyopathy Atrial fibrillation with RVR Nonsustained paroxysmal ventricular tachycardia Atrial fibrillation Chronic HFrEF (heart failure with reduced ejection fraction) Hypertension Rectal bleeding Nonischemic cardiomyopathy Sarcoidosis of lung Acute on chronic clinical systolic heart failure Alcohol dependence Atrial fibrillation Bullous emphysema Hypertension Lower extremity edema Pulmonary sarcoidosis Shortness of breath Chronic respiratory failure with hypoxia Hyponatremia Additional Source Comments (unrecognized sect ion and content) No Status Records FoundNo Status Records FoundNo Status Records FoundNo Status Records FoundNo Status Records FoundNo Status Records Found INFORMATION SOURCE (unrecogn ized section and content) DATE CREATED AUTHOR 12/30/2018 [facility] DATE CREATED AUTHOR AUTHOR'S ORGANIZ ATION 04/30/2021 [employer] DATE CREATED AUTHOR AUTHOR'S ORGANIZ ATION 09/09/2022 [facility] [place] [facility] DATE CREATED AUTHOR AUTHOR'S ORGANIZ ATION [facility]/18/2024 [facility] DATE CREATED AUTHOR AUTHOR'S ORGANIZ ATION 02/22/2024 [facility] DATE CREATED AUTHOR AUTHOR'S ORGANIZ ATION 03/03/[address] [facility] Care Teams (unrecognized sec tion and content) Team Status: Active Member Role Status Dates Adam Del Valle DO Primary Care Provider Active Team Status: Active Member Role Status Dates Adam Del aVlle DO Primary Care Provide r, Attending Provider Active Start: February 01, 2024 Team Status: Inactive Member Role Status Dates Adam Del Valle DO Primary Care Provider Active Start: February 02, 2024 End: February 04, 2024 Silvano Reed DO Admit Provider , Attending Provider Active Start: February 02, 2024 End: February 04, 2024 Ramonita Tang RN Other Provider Active Star t: February 02, 2024 End: February 04, 2024 Judith Rodriguez DO Other Provider Active Start : February 02, 2024 End: February 04, 2024 Shannon Gonzalez MD Other Provider Active Start: February 02, 2024 End: February 04, 2024 Steven Alvares MD Other Provider Active Start: January End: February 04, 2024 Chacho Burroughs MD Other Provider Active St art: February 02, 2024 End: February 04, 2024 Casey Harper MD Other Provider Active Start: February 02, 2024 End: February 04, 2024 Concepción Godoy APRN Other Provider Active Start : February 02, 2024 End: February 04, 2024 Cheli Wood MD Other Provider Active Start: S epteer 2023 End: February 04, 2024 Damien Gonzalez MD Other Provider Active Start: February 02, 2024 End: February 04, 2024 Kimani Wofle MD Other Provider Active Start: S epteer 2023 End: February 04, 2024 Karina Morocho [facility]- Other Provider Active Sta rt: February 02, 2024 End: February 04, 2024 Team Status: Inactive Member Role Status Dates Adam Del Valle DO Primary Care Provider Active Gregg Hilliard , DO Attending Provider Active 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 Relationship Specialty Start Date End Date Adam Del Valle DO [address] [place] [address] PCP - General Internal Medicine 10/13/23 Team Status: Active Member Role Status Dates Adam Del Valle DO Primary Care Provider Active Start: February 05, 2024 Harriet Styles LPN Attending Provider Active Start: February 05, 2024 Team Status: Active Member Role Status Dates Adam Del Valle DO Primary Care Provider Active Start: February 12, 2024 WEN Zacarias Attending Provider Active St art: February 12, 2024 Team Status: Inactive Member Role Status Dates Adam Del Valle DO Primary Care Provide r, Attending Provider Active Start: February 14, 2024 End: February 14, 2024 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 Relationship Specialty Start Date End Date Adam Del Valle DO [address] [place] [address] PCP - General Internal Medicine 10/13/23 Team Status: Active Member Role Status Dates Adam Del Valle DO Primary Care Provide r, Attending Provider Active Start: February 02, 2024 Team Status: Active Member Role Status Dates Adam Del Valle DO Primary Care Provider Active Start: February 28, 2024 Sin Mabry , DO Emergency Provider Active Sta rt: February 28, 2024 Silvano Reed DO Admit Provider , Attending Provider Active Start: February 28, 2024 Team Status: Inactive Member Role Status Dates Adam Del Valle DO Primary Care Provider Active Start: February 28, 2024 End: March 01, 2024 Sin Mabry , DO Emergency Provider Active Sta rt: February 28, 2024 End: March 01, 2024 Silvano Reed DO Admit Provider Active Start: February 28, 2024 End: March 01, 2024 Altaf Jones MD Attending Provider Active St art: February 28, 2024 End: March 01, 2024 Team Status: Active Member Role Status Dates Adam Del Valle DO Primary Care Provider Active Start: February 29, 2024 Juliette Davis CMA Attending Provider Active Start: February 29, 2024 Team Status: Active Member Role Status Dates Adam Del Valle DO Primary Care Provider Active Start: March 01, 2024 Juliette Davis CMA Attending Provider Active Start: March 01, 2024 Goals (unrecognized section and content) Goals may be documented in a n alternate section REASON FOR VISIT (unrecogniz ed section and content) Reason Comments Follow-up 1 yr Reason Comments Atrial Fibrillation EKG Specialty Diagnoses / Procedures Referred By Contac t Referred To Contact Diagnoses Atrial fibrillation, unspecified type (Multi) Procedures ECG 12 Lead Shannon Gonzalez MD [address] [place] [address] Referral ID Status Reason Start Date Expiration Date V isits Requested Visits Authorized [id number] Authorized 02/05/2024 02/04/2025 1 1 FOR RECORDS PERTAINING TO PATIENTS WHO ARE [...] BE BASED ON THE PRIMARY CLINICAL RECORDS. [facility] provides no warranty or guarantee of the accuracy or completeness of information in this document.
== END 2024-03-06 06:52 | disposition home or self-care (01) ==
PROVIDERS: Emergency Provider Emergency Medicine; PCP Internal Medicine
DX: R07.89 Other chest pain (principal); D86.9 Sarcoidosis, unspecified; Z99.81 Dependence on supplemental oxygen; Z20.822 Contact with and (suspected) exposure to COVID-19
CPT/HCPCS: 36415; 71045; 80048; 84484; 85025; 85378; 87804; 87811; 93005; 99285

== ENCOUNTER 2024-03-13 12:29 | Emergency (ER) | payer MEDICARE, SELFPAY ==
[2024-03-13] VITALS (39 sets, daily range): BP systolic 130–176; BP diastolic 84–121; PULSE 76–105; TEMP 36.7; O2SAT 79–100; BMI 23.1
--- NOTE | 2024-03-13 12:50 | CT_ITS ---
The [address] [address] Patient Name: MARY SMALL MRN: [id number] date: 1955 Sex: M Assigned Patient Location: ER Current Patient Location: Accession/Order Number: [id number] Exam Date: 03/13/2024 13:15 Report Date: 03/13/2024 13:45 At the request of: JESSICA MENDOZA Procedure: CT head/brain wo con EXAMINATION: CT head/brain wo con HISTORY: Altered mental status COMPARISON: No relevant comparison available. TECHNIQUE: Axial CT images were obtained without IV contrast. Dose reduction techniques were achieved by using automated exposure control and/or adjustment of mA and/or kV according to patient size and/or use of iterative reconstruction technique. FINDINGS: BRAIN: Mildly decreased attenuation within the deep white matter favoring chronic small vessel ischemic changes. No edema, hemorrhage, mass, acute infarction, or inappropriate atrophy. CSF SPACES: No hydrocephalus, subarachnoid hemorrhage, or mass. Appropriate for age. SKULL: No fracture, mass, or other significant visible lesion. SINUSES: No significant mucosal thickening or fluid on the limited views. ORBITS: No appreciable abnormality on the limited views. OTHER: Complete opacification of all the right mastoid air cells and small amount of fluid or mucus within right middle ear. CT/CT head/brain wo con IMPRESSION: 1. No acute abnormality of the brain. Age consistent chronic changes. 2. Right mastoiditis and otitis media. Electronically authenticated by: CORINNE OCHOA Date: 03/13/2024 13:45
--- NOTE | 2024-03-13 13:02 | ED_ITS ---
HPI - Altered Mental Status General Chief Complaint: Altered Mental Status Time Seen by Provider: 03/13/24 12:50 Source: patient and family Mode of arrival: ambulance History of Present Illness HPI narrative: This patient came to us by paramedics from home. I believe family members called for assistance. His son usually takes care of him but he lives independently. Apparently he is not acting like his normal self today. He is not having any pain or discomfort. He is known to be an alcoholic according to the family. He stopped drinking alcohol within the last 3 4 or 5 days. He is not certain about when he stopped drinking beer. He has a history of atrial fibrillation and had electrical cardioversion in [place] recently. He is responsible for taking all of his old meds but they are not sure he has been doing that recently. He has not had previous stroke that the family is aware of. He is just more agitated and not as coherent as normal. He did not notice any facial asymmetry or weakness of his extremities. Related Data Home Medications ?Medication ?Instructions ?Recorded ?Confirmed albuterol sulfate 90 mcg/actuation 2 inh inhalation Q4H PRN shortness 02/02/24 02/02/24 aerosol inhaler of breath or wheezing carvedilol 12.5 mg tablet 12.5 mg PO Q12H 02/02/24 02/02/24 finasteride 5 mg tablet 5 mg PO DAILY 02/02/24 02/02/24 fluticasone 500 mcg-salmeterol 50 1 inh inhalation Q12H 02/02/24 02/02/24 mcg/dose blistr powdr for inhalation ipratropium 0.5 mg-albuterol 3 mg 3 ml inhalation QID 02/02/24 02/02/24 (2.5 mg base)/3 mL nebulization soln ipratropium bromide 0.02 % 2.5 ml inhalation Q6H 02/02/24 02/02/24 solution for inhalation pantoprazole 40 mg tablet,delayed 40 mg PO DAILY 02/02/24 02/02/24 release prednisone 5 mg tablet 5 mg PO DAILY 02/02/24 02/02/24 sacubitril 24 mg-valsartan 26 mg 1 tab PO BID 02/02/24 02/02/24 tablet (Entresto) tamsulosin 0.4 mg capsule 0.4 mg PO BID 02/02/24 02/02/24 Previous Rx's ?Medication ?Instructions ?Recorded acetaminophen 300 mg-codeine 30 mg 1 tab PO Q6H PRN pain 5 days #20 03/06/24 tablet tabs Allergies Allergy/AdvReac Type Severity Reaction Status Date / Time No Known Drug Allergies Allergy Verified 03/13/24 12:36 PFSH PFSH Social History Little interest or pleasure in doing things: not at all Feeling down, depressed, or hopeless: not at all Exam Narrative Exam Narrative: This patient was seen shortly after arrival. One of his boys is here with him. He follows all simple and complex commands. They said normally he is an excellent historian about baseball activities and he could not tell us anything about yesterday's game or how the [place] guardians have been doing. He does not have a headache. He knows who his children are but he actually thinks it is 2020. Again this is highly unusual according to his son. On HEENT examination his airway is widely patent there is no stridor there is no drooling phonation is clear no slurred speech. Neck is soft and supple there is no evidence of trauma or injury. No tenderness to palpation of his neck. He has no respiratory distress his pulse oximetry on supplemental oxygen is good at 9798%. Heart rate and rhythm show controlled ventricular response atrial fibrillation. I do not believe the family knew if he had successful cardioversion. His abdomen is benign with no pain discomfort or rebound to palpation. He has spontaneous movement of all the extremities. There is no clonus or spasticity. Neurological examination shows he follows all commands. No slurring of his speech he does have some disorientation to the date and recent activities and events. Has good strength in the upper and lower limbs. Constitutional Vital Signs, click to edit/add: Last Vital Signs Temp 98.0 F 03/13/24 12:30 Pulse 76 03/13/24 18:00 Resp 14 03/13/24 18:00 BP 136/99 H 03/13/24 18:00 Pulse Ox 98 03/13/24 18:00 O2 Del Method Nasal Cannula 03/13/24 12:30 O2 Flow Rate 2 03/13/24 12:30 Course Vital Signs Vital signs: Vital Signs Temperature 98.0 F 03/13/24 12:30 Pulse Rate 89 03/13/24 12:30 Respiratory Rate 20 03/13/24 12:30 Blood Pressure 151/101 H 03/13/24 12:30 Pulse Oximetry 95 03/13/24 12:30 Oxygen Delivery Method Nasal Cannula 03/13/24 12:30 Oxygen Delivery Flow Rate 2 03/13/24 12:30 Temperature 98.0 F 03/13/24 12:30 Pulse Rate 76 03/13/24 18:00 Respiratory Rate 14 03/13/24 18:00 Blood Pressure 136/99 H 03/13/24 18:00 Pulse Oximetry 98 03/13/24 18:00 Oxygen Delivery Method Nasal Cannula 03/13/24 12:30 Oxygen Delivery Flow Rate 2 03/13/24 12:30 MDM - Altered Mental Status MDM Narrative Medical decision making narrative: This patient has not had alcohol for approximately 3 to 5 days but does not have tachycardia or hypertension. He was taken immediately to imaging for CT head without and it was essentially a negative study for any acute findings. He was seen when he returned and the son confirms that this is still somewhat unusual behavior. Because of his atrial fibrillation I felt to be important to go ahead and do further imaging so CTA was done of his neck and had and showed no acute findings but he does have carotid stenosis on the right side. He also has some pulmonary findings but his son indicated that he is known to have pulmonary sarcoidosis. His alcohol level is 0 and his chemistries and workup did not show any acute abnormalities accounting for this change in behavior. I believe he needs to be observed and have further neurological evaluation. The family requested to be taken to [place] where all his doctors are at. I did speak to the hospitalist at that facility gave report of the laboratory findings. We will do an additional study on his ammonia level. We will be awaiting transfer to that facility Lab Data Labs: Lab Results 03/13/24 03/13/24 Range/Units 13:47 16:35 WBC 8.7 (4.0-11.0) 10^3/uL RBC 3.76 L (4.70-6.10) 10^6/uL Hgb 11.1 L (14.0-18.0) g/dL Hct 33.4 L (42.0-54.0) % MCV 88.8 (80.0-94.0) fL MCH 29.5 (25.9-34.0) pg MCHC 33.2 (29.9-35.2) g/dL RDW 12.8 (11.0-15.0) % Plt Count 300 (150-450) 10^3/uL MPV 9.5 (9.5-13.5) fL Neut % (Auto) 76.3 H (43.0-75.0) % Lymph % (Auto) 8.8 L (20.5-60.0) % [place] % (Auto) 12.5 H (1.7-12.0) % Eos % (Auto) 1.3 (0.9-7.0) % Baso % (Auto) 0.5 (0.2-2.0) % Neut # (Auto) 6.6 H (1.4-6.5) 10^3/uL Lymph # (Auto) 0.8 L (1.2-3.8) 10^3/uL [place] # (Auto) 1.1 H (0.3-0.8) 10^3/uL Eos # (Auto) 0.1 (0.0-0.7) 10^3/uL Baso # (Auto) 0.0 (0.0-0.1) 10^3/uL Abs Immat Gran (auto) 0.05 H (0.00-0.03) 10^3/uL Imm/Tot Granulo (auto) 0.6 H (0.0-0.5) % PT 11.3 (9.0-11.6) sec INR 1.07 Sodium 137 (136-145) mmol/L Potassium 3.6 (3.5-5.1) mmol/L Chloride 101 (98-107) mmol/L Carbon Dioxide 27.1 (21.0-32.0) mmol/L Anion Gap 12.5 BUN 17.0 (7.0-18.0) mg/dL Creatinine 0.94 (0.70-1.30) mg/dL Est GFR ( Amer) >60 (>=60 mL/min/1.73m^2) Est GFR (Non-Af Amer) >60 (>=60 mL/min/1.73m^2) BUN/Creatinine Ratio 18.1 Glucose 91 (74-106) mg/dL Calcium 8.7 (8.5-10.1) mg/dL Magnesium 1.5 L (1.8-2.4) mg/dL Total Bilirubin 0.6 (0.2-1.0) mg/dL AST 17 (15-37) U/L ALT 17 (16-63) U/L Alkaline Phosphatase 85 (46-116) U/L Troponin I High Sens 8.8 (4.0-76.1) pg/mL Total Protein 6.5 (6.4-8.2) g/dL Albumin 2.9 L (3.4-5.0) g/dL Globulin 3.6 g/dL Albumin/Globulin Ratio 0.8 Lipase 29.0 (16.0-77.0) U/L Urine Opiates Screen Positive A (NEGATIVE) Ur Buprenorphine Scrn Negative (NEGATIVE) Ur Oxycodone Screen Negative (NEGATIVE) Urine Methadone Screen Negative (NEGATIVE) Ur Barbiturates Screen Negative (NEGATIVE) U Tricyclic Antidepress Negative (NEGATIVE) Ur Phencyclidine Scrn Negative (NEGATIVE) Ur Amphetamines Screen Negative (NEGATIVE) U Methamphetamines Scrn Negative (NEGATIVE) U Benzodiazepines Scrn Negative (NEGATIVE) Urine Cocaine Screen Negative (NEGATIVE) U Cannabinoids Screen Negative (NEGATIVE) Ethanol Quant <3 mg/dL Discharge Plan Discharge Chief Complaint: Altered Mental Status Clinical Impression: Acute alteration in mental status, Alcoholism Patient Disposition: [facility] Time of Disposition Decision: 18:27 Mode of Transportation: EMS Prescriptions / Home Meds: No Action albuterol sulfate 90 mcg/actuation HFA aerosol inhaler 2 inh INHALATION Q4H PRN (Reason: shortness of breath or wheezing) carvedilol 12.5 mg tablet 12.5 mg PO Q12H finasteride 5 mg tablet 5 mg PO DAILY fluticasone propion-salmeterol 500-50 mcg/dose blister with device 1 inh INHALATION Q12H ipratropium-albuterol 0.5 mg-3 mg(2.5 mg base)/3 mL solution for nebulization 3 ml INHALATION QID pantoprazole 40 mg tablet,delayed release (DR/EC) 40 mg PO DAILY prednisone 5 mg tablet 5 mg PO DAILY Entresto 24-26 mg tablet 1 tab PO BID tamsulosin 0.4 mg capsule 0.4 mg PO BID ipratropium bromide 0.02 % solution 2.5 ml inhalation Q6H acetaminophen-codeine 300-30 mg tablet 1 tab PO Q6H PRN (Reason: pain) 5 Days Qty: 20 0RF Print Language: Mohawk Referrals: Adam Wylie DO [Primary Care Provider] - 1 week
[2024-03-13] MEDS: 0.9 % SODIUM CHLORIDE 1,000 ML 999 ML IV (13:06)
[2024-03-13] MEDS: LORAZEPAM 2 MG/ML VIAL 1 MG IV (13:07)
--- NOTE | 2024-03-13 13:14 | ECG_ITS ---
[facility] Test Date: 2024-03-13 Pat Name: MARY SMALL Department: Room: - Gender: Male Psychiatry Resident: : 1955 Requested By: DAMIR DEL VALLE Order Number: [id number] Reading MD: DAMIR DEL VALLE Measurements Intervals [place] Rate: 97 P: -02630 UT: -73161 QRS: -17 QRSD: 126 T: 87 QT: 372 QTc: 427 Interpretive Statements 1210 Atrial fibrillation 2540 Incomplete left bundle branch block 90033 Twave abnormality, possible lateral ischemia 9150 abnormal ECG Electronically Signed On 03-13-2024 23:26:30 EDT by DAMIR DEL VALLE
--- NOTE | 2024-03-13 13:24 | PC.NURSE ---
pt back from CT at this time via stretcher. 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 pt denies current needs.
[2024-03-13 14:00] LABS: Basophils Percent Auto 0.5 % (0.2-2.0); Eosinophils Absolute Auto 0.1 10^3/uL (0.0-0.7); Eosinophils Percent Auto 1.3 % (0.9-7.0); Hematocrit 33.4 % (42.0-54.0); Hemoglobin 11.1 g/dL (14.0-18.0); Immature Granulocytes Abs Auto 0.05 10^3/uL (0.00-0.03); Immature Granulocytes Pct Auto 0.6 % (0.0-0.5); Lymphocytes Absolute Auto 0.8 10^3/uL (1.2-3.8); Lymphocytes Percent Auto 8.8 % (20.5-60.0); Mean Corpuscular HGB Conc 33.2 g/dL (29.9-35.2); Mean Corpuscular Hemoglobin 29.5 pg (25.9-34.0); Mean Corpuscular Volume 88.8 fL (80.0-94.0); Mean Platelet Volume 9.5 fL (9.5-13.5); Monocytes Absolute Auto 1.1 10^3/uL (0.3-0.8); Monocytes Percent Auto 12.5 % (1.7-12.0); Neutrophils Absolute Auto 6.6 10^3/uL (1.4-6.5); Neutrophils Percent Auto 76.3 % (43.0-75.0); Platelet Count 300 10^3/uL (150-450); Red Blood Count 3.76 10^6/uL (4.70-6.10); Red Cell Distribution Width 12.8 % (11.0-15.0); White Blood Count 8.7 10^3/uL (4.0-11.0)
[2024-03-13 14:12] LABS: INR 1.07; Prothrombin Time 11.3 sec (9.0-11.6)
[2024-03-13 14:14] LABS: Alanine Aminotransferase 17 U/L (16-63); Albumin Globulin Ratio 0.8; Albumin Level 2.9 g/dL (3.4-5.0); Alkaline Phosphatase 85 U/L (46-116); Anion Gap 12.5; Aspartate Amino Transferase 17 U/L (15-37); BUN Creatinine Ratio 18.1; Bilirubin Total 0.6 mg/dL (0.2-1.0); Calcium 8.7 mg/dL (8.5-10.1); Carbon Dioxide 27.1 mmol/L (21.0-32.0); Chloride 101 mmol/L (98-107); Estimated GFR (African America >60 (>=60 mL/min/1.73m^2); Estimated GFR (Non-African Ame >60 (>=60 mL/min/1.73m^2); Globulin 3.6 g/dL; Glucose 91 mg/dL (74-106); Potassium 3.6 mmol/L (3.5-5.1); Sodium 137 mmol/L (136-145); Total Protein 6.5 g/dL (6.4-8.2)
[2024-03-13 14:16] LABS: Ethanol <3 mg/dL; Magnesium 1.5 mg/dL (1.8-2.4)
[2024-03-13 14:19] LABS: Troponin I High Sensitivity 8.8 pg/mL (4.0-76.1)
--- NOTE | 2024-03-13 14:47 | CT_ITS ---
[address] [address] Patient Name: MARY SMALL MRN: [id number] date: 1955 Sex: M Assigned Patient Location: ER Current Patient Location: Accession/Order Number: [id number] Exam Date: 03/13/2024 15:00 Report Date: 03/13/2024 16:29 At the request of: JESSICA MENDOZA Procedure: CT angio neck EXAMINATION: CT angio neck, CT angio head HISTORY: AMS COMPARISON: CT head without contrast 03/13/2024 TECHNIQUE: Axial, Coronal, and Sagittal CT images with IV contrast. Multi-planar/3-D imaging to optimize visualization of vascular anatomy. Percent stenosis is based on NASCET criteria. Dose reduction techniques were achieved by using automated exposure control and/or adjustment of mA and/or kV according to patient size and/or use of iterative reconstruction technique. FINDINGS: HEAD: VASCULATURE: No significant stenosis. No visible aneurysm or vascular malformation. VENTRICLES: No enlargement or displacement. CEREBRUM: No excessive atrophy, mass, or hemorrhage, or abnormal enhancement. CEREBELLUM: . No excessive atrophy, mass, or hemorrhage, or abnormal enhancement. BRAINSTEM: No excessive atrophy, mass, or hemorrhage, or abnormal enhancement. BASAL CISTERNS: No subarachnoid hemorrhage or effacement. SKULL: Negative. NECK: RIGHT INTERNAL CAROTID: Marked atherosclerotic narrowing of proximal ICA with up to 90% area reduction. Patent flow. EXTERNAL CAROTID: No hemodynamically significant stenosis or dissection. COMMON CAROTID: No hemodynamically significant stenosis or dissection. VERTEBRAL: No hemodynamically significant stenosis or dissection. LEFT INTERNAL CAROTID: No hemodynamically significant stenosis or dissection. EXTERNAL CAROTID: No hemodynamically significant stenosis or dissection. COMMON CAROTID: No hemodynamically significant stenosis or dissection. VERTEBRAL: No hemodynamically significant stenosis or dissection. OTHER: Moderate- marked pulmonary infiltrates versus atelectasis and suspected bulla or cavitary lesion within left lung. Innumerable large mediastinal and bilateral hilar calcified lymph nodes. CT/CT angio neck IMPRESSION: 1. No intracranial hemorrhage, aneurysm, or significant vessel narrowing. 2. Marked atherosclerotic narrowing of right proximal internal carotid artery with up to 90% area reduction. Patent flow through this area. 3. Moderate to marked bilateral pulmonary infiltrates and possibly chronic changes within the lungs. Innumerable calcified lymph nodes within the visible mediastinum and bilateral randi; chronic granulomatous disease versus sequela of treated lymphoma Electronically authenticated by: CORINNE OCHOA Date: 03/13/2024 16:29
--- NOTE | 2024-03-13 14:47 | CT_ITS ---
[address] [address] Patient Name: MARY SMALL MRN: [id number] date: 1955 Sex: M Assigned Patient Location: ER Current Patient Location: Accession/Order Number: [id number] Exam Date: 03/13/2024 15:00 Report Date: 03/13/2024 16:29 At the request of: JESSICA MENDOZA Procedure: CT angio head EXAMINATION: CT angio neck, CT angio head HISTORY: AMS COMPARISON: CT head without contrast 03/13/2024 TECHNIQUE: Axial, Coronal, and Sagittal CT images with IV contrast. Multi-planar/3-D imaging to optimize visualization of vascular anatomy. Percent stenosis is based on NASCET criteria. Dose reduction techniques were achieved by using automated exposure control and/or adjustment of mA and/or kV according to patient size and/or use of iterative reconstruction technique. FINDINGS: HEAD: VASCULATURE: No significant stenosis. No visible aneurysm or vascular malformation. VENTRICLES: No enlargement or displacement. CEREBRUM: No excessive atrophy, mass, or hemorrhage, or abnormal enhancement. CEREBELLUM: . No excessive atrophy, mass, or hemorrhage, or abnormal enhancement. BRAINSTEM: No excessive atrophy, mass, or hemorrhage, or abnormal enhancement. BASAL CISTERNS: No subarachnoid hemorrhage or effacement. SKULL: Negative. NECK: RIGHT INTERNAL CAROTID: Marked atherosclerotic narrowing of proximal ICA with up to 90% area reduction. Patent flow. EXTERNAL CAROTID: No hemodynamically significant stenosis or dissection. COMMON CAROTID: No hemodynamically significant stenosis or dissection. VERTEBRAL: No hemodynamically significant stenosis or dissection. LEFT INTERNAL CAROTID: No hemodynamically significant stenosis or dissection. EXTERNAL CAROTID: No hemodynamically significant stenosis or dissection. COMMON CAROTID: No hemodynamically significant stenosis or dissection. VERTEBRAL: No hemodynamically significant stenosis or dissection. OTHER: Moderate- marked pulmonary infiltrates versus atelectasis and suspected bulla or cavitary lesion within left lung. Innumerable large mediastinal and bilateral hilar calcified lymph nodes. CT/CT angio head IMPRESSION: 1. No intracranial hemorrhage, aneurysm, or significant vessel narrowing. 2. Marked atherosclerotic narrowing of right proximal internal carotid artery with up to 90% area reduction. Patent flow through this area. 3. Moderate to marked bilateral pulmonary infiltrates and possibly chronic changes within the lungs. Innumerable calcified lymph nodes within the visible mediastinum and bilateral randi; chronic granulomatous disease versus sequela of treated lymphoma Electronically authenticated by: CORINNE OCHOA Date: 03/13/2024 16:29
--- NOTE | 2024-03-13 15:01 | PC.NURSE ---
pt to CT via stretcher at this time. pt resting on ED cart with eyes closed. respirations even and nonlabored. pt is arousable with stimulation.
[2024-03-13] MEDS: AMMONIA 1 EACH AMPULE IH (16:25)
[2024-03-13 17:25] LABS: Cannabinoid Screen Urine NEGATIVE (NEGATIVE); Cocaine Screen Urine NEGATIVE (NEGATIVE); Methamphetamines Screen Urine NEGATIVE (NEGATIVE); Phencyclidine Screen Urine NEGATIVE (NEGATIVE)
[2024-03-13 17:26] LABS: Amphetamine Screen Urine NEGATIVE (NEGATIVE); Barbiturates Screen Urine NEGATIVE (NEGATIVE); Benzodiazepines Screen Urine NEGATIVE (NEGATIVE); Buprenorphine Screen Urine NEGATIVE (NEGATIVE); Methadone Screen Urine NEGATIVE (NEGATIVE); Opiate Screen Urine POSITIVE (NEGATIVE); Oxycodone Screen Urine NEGATIVE (NEGATIVE); Tricyclic Antidepressant Urine NEGATIVE (NEGATIVE)
[2024-03-13 18:50] LABS: Ammonia 20 umol/L (11-32)
== END 2024-03-13 20:11 | disposition short-term general hospital (02) ==
PROVIDERS: Emergency Provider Emergency Medicine Emergency Medical Services; PCP Internal Medicine
DX: R41.82 Altered mental status, unspecified (principal); F10.20 Alcohol dependence, uncomplicated; I48.91 Unspecified atrial fibrillation; I65.21 Occlusion and stenosis of right carotid artery; D86.0 Sarcoidosis of lung; Y90.0 Blood alcohol level of less than 20 mg/100 ml
CPT/HCPCS: 36415; 70450; 70496; 70498; 80053; 80307; 80320; 82140; 83690; 83735; 84484; 85025; 85610; 93005; 96361; 96374; 99285; J2060; Q9967

== ENCOUNTER 2024-04-09 12:41 | Outpatient (REF) | payer MEDICARE, SELFPAY ==
[2024-04-09 13:48] LABS: Anion Gap 13.7; BUN Creatinine Ratio 9.5; Calcium 8.9 mg/dL (8.5-10.1); Carbon Dioxide 25.4 mmol/L (21.0-32.0); Chloride 102 mmol/L (98-107); Estimated GFR (African America >60 (>=60 mL/min/1.73m^2); Estimated GFR (Non-African Ame 57 (>=60 mL/min/1.73m^2); Glucose 91 mg/dL (74-106); Potassium 4.1 mmol/L (3.5-5.1); Sodium 137 mmol/L (136-145)
== END 2024-04-09 12:42 | disposition home or self-care (01) ==
LOC: LAB 12:41
PROVIDERS: PCP Internal Medicine; Visit Provider Internal Medicine
DX: E87.6 Hypokalemia (principal)
CPT/HCPCS: 36415; 80048

== ENCOUNTER 2024-05-22 12:33 | Outpatient (REF) | payer MEDICARE, SELFPAY ==
[2024-05-22 13:31] LABS: Alanine Aminotransferase 15 U/L (16-63); Albumin Globulin Ratio 0.9; Albumin Level 2.9 g/dL (3.4-5.0); Alkaline Phosphatase 149 U/L (46-116); Anion Gap 12.2; Aspartate Amino Transferase 18 U/L (15-37); BUN Creatinine Ratio 11.6; Bilirubin Total 0.8 mg/dL (0.2-1.0); Calcium 8.9 mg/dL (8.5-10.1); Carbon Dioxide 29.8 mmol/L (21.0-32.0); Chloride 100 mmol/L (98-107); Estimated GFR (African America >60 (>=60 mL/min/1.73m^2); Estimated GFR (Non-African Ame >60 (>=60 mL/min/1.73m^2); Globulin 3.3 g/dL; Glucose 82 mg/dL (74-106); Sodium 138 mmol/L (136-145); Total Protein 6.2 g/dL (6.4-8.2)
[2024-05-22 14:04] LABS: Basophils Percent Auto 0.5 % (0.2-2.0); Eosinophils Absolute Auto 0.3 10^3/uL (0.0-0.7); Eosinophils Percent Auto 4.5 % (0.9-7.0); Hemoglobin 9.2 g/dL (14.0-18.0); Immature Granulocytes Abs Auto 0.03 10^3/uL (0.00-0.03); Immature Granulocytes Pct Auto 0.5 % (0.0-0.5); Lymphocytes Absolute Auto 1.1 10^3/uL (1.2-3.8); Lymphocytes Percent Auto 18.9 % (20.5-60.0); Mean Corpuscular HGB Conc 31.7 g/dL (29.9-35.2); Mean Corpuscular Hemoglobin 27.3 pg (25.9-34.0); Mean Corpuscular Volume 86.1 fL (80.0-94.0); Mean Platelet Volume 9.9 fL (9.5-13.5); Monocytes Absolute Auto 0.9 10^3/uL (0.3-0.8); Monocytes Percent Auto 14.4 % (1.7-12.0); Neutrophils Absolute Auto 3.7 10^3/uL (1.4-6.5); Neutrophils Percent Auto 61.2 % (43.0-75.0); Platelet Count 322 10^3/uL (150-450); Red Blood Count 3.37 10^6/uL (4.70-6.10); Red Cell Distribution Width 14.4 % (11.0-15.0)
== END 2024-05-22 12:34 | disposition home or self-care (01) ==
LOC: LAB 12:33
PROVIDERS: PCP Internal Medicine; Visit Provider Internal Medicine
DX: I95.9 Hypotension, unspecified (principal); I50.9 Heart failure, unspecified
CPT/HCPCS: 36415; 80053; 85025

== ENCOUNTER 2025-01-17 12:41 | Outpatient (OUT) | payer MEDICARE, SELFPAY ==
--- OUTSIDE RECORDS SUMMARY | 2025-01-17 12:58 | XMS_ITS | CCD ---
Author Organization [facility] Care Team Providers Care Associate Professor Of History Name Role Phone Adam Del Valle Unavailable Unavailable Unavailable ADAM DEL VALLE Primary Care Physician DO Adam Del Valle Primary Care Provider DO Gregg Hilliard Attending Provider Nick Muniz Unavailable [phone] Gregg Hilliard Unavailable Adam Del Valle Unavailable DR ADAM DEL VALLE Admitting Unavailable IVON, DR REICH Primary Care Unavailable BALL, DR REICH Consulting Unavailable BALL, DR REICH Attending Unavailable BALL, DR REICH Primary Care Unavailable NORMAN ., DR TINOCO Consulting Unavailable NORMAN ., DR TINOCO Attending Unavailable NORMAN ., DR TINOCO Admitting Unavailable BALL, DR REICH Attending Unavailable BALL, [...] DO Adam Del Valle Primary Care Provider Lindhamletoom, DO Silvano Admit Provider DO Derek Silvano Attending Provider JOANNE Tang Other Provider Unavailable DO Judith Rodriguez Other Provider MD Shannon Gonzalez Other Provider MD Steven Alvares Other Provider MD Chacho Burroughs Other Provider MD Casey Harper Other Provider CHARLEY Godoy Other Provider MD Cheli Wood Other Provider MD Damien Gonzalez Other Provider MD Kimani Wolfe Other Provider Bailee [facility] Karina Galvan Other Provider DO Sin Mabry Emergency Provider MD Altaf Jones Attending Provider DO Adam Del Valle Primary Care Provider Derek, DO Silvano Admit Provider DO Derek Silvano Attending Provider JOANNE Tang Other Provider Unavailable DO Judith Rodriguez Other Provider MD Shannon Gonzalez Other Provider MD Steven Alvares Other Provider MD Chacho Burroughs Other Provider MD Casey Harper Other Provider CHARLEY Godoy Other Provider MD Cheli Wood Other Provider MD Damien Gonzalez Other Provider MD Kimani Wolfe Other Provider Bailee [facility] Karina Galvan Other Provider DO Sin Mabry Emergency Provider MD Altaf Jones Attending Provider MD Gabrieal Nobles Admit Provider DO Eriberto Stover Other Provider MD Ijeoma Alvares Other Provider MD Hasmukh Mace Other Provider CHARLEY Keita Other Provider [phone] DO Freddie Reid Jr Other Provider MD Gutierrez Jo Other Provider MD Baudilio Moura Other Provider Adam Del Valle DO Primary Care Provider Silvano Reed DO Admit Provider Silvano Reed DO Attending Provider [phone] Clyde RUBIO, Ramonita Other Provider Unavailable Judith Rodriguez DO Other Provider Esther SALMON, Shannon Other Provider Dia SALMON, Steven Tinoco Other Provider Heike SALMON, Chacho Other Provider Leroy SALMON, Casey Other Provider Ning Godoy APRN Other Provider Cheli Wood MD Other Provider Carlos SALMON, Dmaien Moreno Other Provider Aiden SALMON, Kimani Other Provider Bailee [facility], Karina Galvan Other Provider Sin Mabry DO Emergency Provider [phone] Altaf Jones MD Attending Provider Giuliano SALMON, Gabriela Admit Provider Eriberto Stover DO Other Provider Dia SALMON, Ijeoma Other Provider Rodri SALMON, Hasmukh Other Provider Nuvia Keita APRN Other Provider [phone] BelFreddie graff DO Other Provider Deysi SALMON, Gutierrez Rodriguez Other Provider Martell SALMON, Baudilio Francisco Other Provider Adam Del Valle DO Attending Provider Adam Del Valle DO Primary Care Provider Robert SALMON, Altaf Attending Provider [phone] Shannon Gonzalez MD Referring Provider Adam Del Valle DO Primary Care Provider Susanne Motley MD Emergency Provider Robert SALMON, Altaf Admit Provider Altaf Jones MD Attending Provider [phone] Shannon Gonzalez MD Other Provider Unavailable Primary Care Provider Unavailabl e Clinton NORMAN Attending Unavailable EMERSON, Clinton R Attending Unavailable EMERSON, Clinton R Attending Unavailable EMERSON, Clinton R Admitting Unavailable Clinton NORMAN R Attending Unavailable Clinton NORMAN Attending Unavailable SHANNON GONZALEZ Referring Unavailable ADAM DEL VALLE Primary Care Unavailable SHANNON GONZALEZ Referring Unavailable ADAM DEL VALLE Primary Care Unavailable Adam Del Valle DO Primary Care Provider Susanne Motley MD Emergency Provider [phone] Altaf Jones MD Admit Provider [phone] Altaf Jones MD Attending Provider Shannon Gonzalez MD Other Provider Adam Del Valle DO Primary Care Provider Adam Del Valle DO Attending Provider Hasmukh Vides DO Emergency Provider [phone] Silvano Reed DO Admit Provider [phone] Silvano Reed DO Attending Provider Hoang Conner DO Attending Provider Juliette Davis CMA Attending Provider Unavaila Adam Lainez DO Primary Care Provider [phone] Adam Del Valle DO Attending Provider [phone] Ruthnan SALMON, Josue Diaz Attending Provider Konradavtar [place] Emergency Provider Horacio SALMON, Elsie Admit Provider [phone] Elsie Leonard MD Attending Provider [phone] Jostin Larose DO Attending Provider [phone] Altaf Jones Admitting Unavailable [facility] Unavailable Gonzalez, Ortega Consulting Unavailable Altaf Jones Attending Unavailable Derek Silvano Admitting UnavailRamonita Barnett Consulting Unavailable [facility] Unavailable Altaf Jones Attending Unavailable Judith Rodriguez Consulting Unavailable Gonzalez, Ortega Consulting Unavailable Steven Alvares Consulting Unavail able Chacho Burroughs Consulting Unavailable Casey Harper Consulting Unavailab Ning Velarde Consulting Unavailable Wood, Cheli Consulting Unavailable Carlos, Damien Najeeb Consulting Unavailab Kimani Lebron Consulting Unavailable Karina Morocho Consulting Unavailable GiulianoGabriela galvan Admitting Unavailable [facility] Unavailable Eriberto Stover Consulting Unavailable Gonzalez, Ortega Referring Unavailable Altaf Jones Attending Unavailable Ijeoma Alvares Consulting Unavailable Hasmukh Mace Consulting Unavailable Nuvia Keita Consulting Unavailable Freddie Reid Jr Consulting UnavailGutierrez Martinez Consulting Unavaila Baudilio Degroot Consulting UnavailRamonita Barnett Consulting Unavailable Ball, Adam Primary Care Unavailable Jostin Larose Attending Unavailable Elsie Leonard Admitting Unavailable Ramonita Tang Consulting Unavailable Judith Rodriguez Consulting Unavailable Esther, Shannon Consulting Unavailable Chacho Burroughs Consulting Unavailable Ning Godoy Consulting Unavailable Cheli Wood Consulting Unavailable Aiden, Taraileen Consulting Unavailable Karina Morocho Consulting Unavailable Silvano Reed Admitting Unavailabl e Ivon, Adam Primary Care Unavailable Hoang Conner Attending Unavailable Silvano Reed Attending Unavailabl e Silvano Reed Admitting Unavailabl e Clyde, Ramonita Consulting Unavailable Ivon, Adam Primary Care Unavailable Judith Rodriguez Consulting Unavailable Esther, Shannon Consulting Unavailable Steven Alvares Consulting Unavail able Chacho Burroughs Consulting Unavailable Casey Harper Consulting Unavailab Ning Velarde Consulting Unavailable Cheli Wood Consulting Unavailable Damien Gonzalez Consulting Unavailab ra Wolfe, Taraileen Consulting Unavailable Karina Morocho Consulting Unavailable Ball, Adam Admitting Unavailable Ball, Adam Attending Unavailable Ball, Adam Primary Care Unavailable Ball, Adam Primary Care Unavailable Josue Beavers Attending Unavailable Josue Beavers Admitting Unavailable Juliette Perla RN Unavailable Unavailable NING GODOY Attending Unavailable BALL, ADAM E Primary Care Unavailable GONZALEZ, ORTEGA M Referring Unavailable BALL, ADAM E Primary Care Unavailable GONZALEZ, ORTEGA M Attending Unavailable IVON, ADAM E Primary Care Unavailable GONZALEZ, ORTEGA M Referring Unavailable GONZALEZ, ORTEGA M Attending Unavailable GONZALEZ, ORTEGA M Referring Unavailable BALL, ADAM E Primary Care Unavailable GONZALEZ, ORTEGA M Referring Unavailable BALL, ADAM E Primary Care Unavailable GONZALEZ, ORTEGA M Attending Unavailable GONZALEZ, ORTEGA M Referring Unavailable BALL, ADAM E Primary Care Unavailable Allergies Allergy Classification Reported Allergen(s) Allergy Type Date of Onset Reaction(s) Facility (1 source) patient allergy list reviewed by nurse or physicia Propensity to adverse reactions 9 Comment:Done [employer] Other (1 source) ALLERGIES NOT ON FILE; Translations: [ALLERGIES NOT ON FILE] Propensity to adverse reactions (disorder) [facility] [place] Repository Medications Current Medications Medication Drug Class(es) Dates Sig (Normalized) Sig (Original) Advair Diskus 500-50 MCG/DOSE (5 sources) Start: 07-09-2018 take 1 puff(s) by inhalation twice daily Advair Diskus 500-50 MCG/DOSE 1 puff Inhalation Twice a day for 90 days Jun, Active albuterol 0.833 mg/ml / ipratropium bromide 0.167 mg/ml inhalation solution (20 sources) Anticholinergic, beta2-Adrenergic Agonist Start: 01-30-2024 End: 01-02-2025 take 1 mL by inhalation four times daily as needed Ipratropium-Albuter ol 0.5 mg-3 mg(2.5 mg base)/3 mL solution for nebulization Active 3 ML INHALATION Four times daily as needed for shortness of breath January 02, 2025 12:00am Complies with drug therapy Start: 01-29-2024 End: 01-30-2024 take 2.5 mL by inhalation four times daily Ipratropium-Albuterol 0.5 mg-3 mg(2.5 mg base)/3 mL solution for nebulization Discontinued 0 .ROUTE .COMPLEX 360 January 29, [...] 09-Sep-2019 Active Start: 05-11-2018 End: 10-12-2023 Ipratropium-Albuterol 0.5 mg -3 mg(2.5 mg base)/3 mL Solution For Nebulization Discontinued 3 ML INHALATION every 6 to 8 hours as needed for Wheezing May 11, 2018 1:00am October 12, 2023 [...] (Ventolin Hfa) 90 mcg/actuation Hfa Aerosol Inhaler (14 sources) Start: 05-11-2018 take 1 puff(s) by inhalation every six hours Albuterol Sulfate (Ventolin Hfa) 90 mcg/actuation Hfa Aerosol Inhaler Active 2 PUFF INHALATION Q6H May 11, 2018 9:16pm Start: 05-11-2018 End: 10-23-2023 take 1 puff(s) by inhalation every six hours as needed for wheezing Albuterol Sulfate (Ventolin Hfa) 90 mcg/actuation Hfa Aerosol Inhaler Discontinued 2 PUFF INHALATION Q6H as needed for Shortness Of Breath Or Wheezing May 11, 2018 1:00am October 23, 2023 3:25pm Start: 05-11-2018 End: 10-23-2023 take 1 puff(s) by inhalation every six hours as needed for wheezing Albuterol Sulfate (Ventolin Hfa) 90 mcg/actuation Hfa Aerosol Inhaler Discontinued 2 PUFF INHALATION Q6H as needed for Shortness Of Breath Or Wheezing May 11, 2018 12:00am October 23, 2023 2:25pm Start: 05-11-2018 End: 10-23-2023 take 1 puff(s) by inhalation every six hours Albuterol Sulfate (Ventolin Hfa) 90 mcg/actuation Hfa Aerosol Inhaler Discontinued 2 PUFF INHALATION Q6H May 11, 2018 12:00am October 23, 2023 2:25pm Start: 05-11-2018 End: 10-23-2023 take 1 puff(s) by inhalation every six hours Albuterol Sulfate (Ventolin Hfa) 90 mcg/actuation Hfa Aerosol Inhaler Discontinued 2 PUFF INHALATION Q6H May 11, 2018 1:00am October 23, 2023 3:25pm aspirin 81 mg delayed release oral tablet (20 sources) Platelet Aggregation Inhibitor, Nonsteroidal Anti-inflammatory Drug Start: 01-09-2025 take 1 tablet by mouth once daily Start: 03-20-2024 End: 10-31-2024 take 1 tablet by mouth once daily Aspirin 81 mg Tablet,Delayed Release (Dr/Ec) Discontinued 81 MG PO Daily March 20, 2024 1:00am May 01, 2024 12:36pm take 1 tablet by melissa th once daily aspirin 81 mg tablet Take 81 mg by mouth once daily. Active atorvastatin 40 mg oral tablet (20 sources) HMG-CoA Reductase Inhibitor Start: 03-20-2024 atorvastatin (Lipitor) 40 mg tablet 1 tablet (40 mg) once daily. 03/20/2024 Active dapagliflozin 10 mg oral tablet (3 sources) Sodium-Glucose Cotransporter 2 Inhibitor Start: 01-09-2025 take 1 tablet by mouth once daily take 1 tablet by melissa th every twenty-four hours dapagliflozin propanediol (Farxiga) 10 m g tablet Take 1 tablet (10 mg) by mouth once every 24 hours. Active digoxin 0.125 mg oral tablet (8 sources) Cardiac Glycoside Start: 06-06-2024 End: 06-06-2025 take 1 tablet by mouth once daily digoxin (Lanoxin) 125 MCG tablet Indications: 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 (Multi) Take 1 tablet (125 mcg) by mouth once daily. 90 tablet 3 06/06/2024 10/31/2024 Discontinued (Discontinued by another clinician) dofetilide 0.25 mg oral capsule (20 sources) Antiarrhythmic Start: 08-12-2024 End: 08-12-2025 take 1 capsule by mouth every twelve hours in the evening dofetilide (Tikosyn) 250 mcg capsule Indications: Atrial fibrillation, unspecified type (Multi) Take 1 capsule (250 mcg) by mouth every 12 hours. 180 capsule 3 12/20/2024 6:23 PM EDT 08/12/2024 08/12/2025 Active Start: 08-05-2024 dofetilide 250 mcg oral capsule 250 mcg = 1 cap(s), Refills(s) 0 Start Date: 08/05/24 Status: Ordered Repeat number: 1 Start: 07-09-2024 End: 11-11-2024 take 1 capsule by mouth twice daily Dofetilide 125 mcg Capsule Discontinued 125 MCG PO Twice daily July 09, 2024 1:00am November 11, 2024 3:11am Start: 03-20-2024 End: 07-25-2024 take 1 capsule by mouth every twelve hours dofetilide (Tikosyn) 250 mcg capsule 1 capsule (250 mcg) every 12 hours. 03/20/2024 07/25/2024 Discontinued (Dose adjustment) Start: 03-20-2024 End: 07-09-2024 take 1 capsule by mouth twice daily Dofetilide 250 mcg Capsule Discontinued 250 MCG PO Twice daily 60 March 20, 2024 1:00am July 09, 2024 11:25am End: 10-31-2024 take 1 capsule by mouth every twelve hours dofetilide (Tikosyn) 125 mcg capsule Take 1 capsule (125 mcg) by mouth every 12 hours. 10/31/2024 Discontinued (Therapy completed) finasteride 5 mg oral tablet (20 sources) 5-alpha Reductase Inhibitor Start: 02-17-2020 End: 09-11-2023 take 1 tablet by mouth once daily finasteride (Proscar) 5 mg tablet Take 1 tablet (5 mg) by mouth once daily. 02/17/2020 Active fluticasone 0.05 mg/inh Nasal [place] (2 sources) Start: 09-11-2019 fluticasone 0. 05 mg/inh Nasal [place] Nasal, Daily, Refill(s) 0 Start Date: 09/11/19 Status: Ordered furosemide 40 mg oral tablet (20 sources) Loop Diuretic Start: 01-09-2025 take 1 tablet by mouth once daily Start: 06-03-2024 take 1 tablet by melissa twice daily Furosemide 20 mg tablet Active 20 MG PO Twice daily June 03, 2024 1:00am Complies with drug therapy Start: 03-19-2024 End: 04-02-2024 take 1 tablet by mouth twice daily Furosemide 20 mg Tablet Discontinued 20 MG PO BID@0800,1600 90 30 March 19, 2024 1:00am April 02, 2024 1:34pm Start: 08-09-2021 End: 05-24-2025 take 1 tablet by mouth once daily as needed furosemide (Lasix) 20 mg tablet Indications: Non-ischemic cardiomyopathy (Multi) Take 1 tablet (20 mg) by mouth once daily as needed (if swelling occurs to the right leg). 90 tablet 1 12/30/2024 3:39 PM EDT 05/24/2024 05/24/2025 Active Start: 05-13-2018 End: 02-10-2019 take 1 tablet by mouth once daily Furosemide (Lasix) 40 mg tablet Discontinued 40 MG PO Daily May 13, 2018 1:00am February 10, 2019 12:10am ipratropium bromide 0.2 mg/ml inhalation solution (20 sources) Anticholinergic Start: 01-30-2024 End: 10-31-2024 take 2.5 mL by inhalation four times daily ipratropium (Atrovent) 0.02 % nebulizer solution INHALE 2.5ml via NEBULIZER FOUR TIMES DAILY 01/30/2024 10/31/2024 Discontinued (Therapy completed) Start: 10-12-2023 End: 01-29-2024 take 0.5 mg by inhalation four times daily Ipratropium Mohler 0.02 % solution Discontinued 0.5 MG INHALATION Four times daily 300 January 29, 2024 8:52am January 29, 2024 12:51pm Start: 10-12-2023 End: 01-29-2024 take 0.5 mg by inhalation four times daily Ipratropium Mohler Discontinued 0.5 MG INHALATION Four times daily 300 January 29, 2024 7:52am January 29, 2024 11:51am Start: 08-16-2022 take 1 [IU] by inhal ation four times daily Ipratropium Mohler 0.02 % 1 unit dose Inhalation four times a day DX J44.9 COPD for 30 days Aug, Active Start: 08-16-2022 take 1 [IU] by inhal ation four times daily Ipratropium Mohler 0.02 % 1 unit dose Inhalation four times a day DX J44.9 COPD for 30 days Aug, Active Start: 09-11-2019 ipratropium mi crogram, QID, Refills(s) 0 Start Date: 09/11/19 Status: Ordered Repeat number: 1 Start: 09-11-2019 ipratropium mi crogram, QID, Refills(s) 0 Start Date: 09/11/19 Status: Ordered latanoprost 0.05 mg/ml ophthalmic solution (20 sources) Prostaglandin Analog Start: 10-12-2023 take 1 drop(s) into the eye(s) at bedtime Latanoprost 0.005 % drops Active 1 DROPS EYE-LEFT Bedtime October 12, 2023 12:00am Complies with drug therapy Start: 10-12-2023 take 1 drop(s) into the eye(s) once daily Latanoprost 0.005 % drops Active 1 DROPS OPHTHALMIC Daily October 12, 2023 12:00am Complies with drug therapy Start: 10-12-2023 take 1 drop(s) into the eye(s) once daily Latanoprost Active 1 DROPS OPHTHALMIC Daily October 11, 2023 11:00pm Start: 10-05-2023 take 1 drop(s) into the eye(s) once daily at bedtime latanoprost (Xalatan) 0.005 % ophthalmic solution 1 drop once daily at bedtime. 10/05/2023 Active magnesium hydroxide 80 mg/ml oral suspension (9 sources) Start: 07-09-2024 End: 01-02-2025 magnesium hydroxide (Milk of Magnesia) 400 mg/5 mL suspension Take by mouth once daily as needed. 07/09/2024 Active magnesium oxide 400 mg oral tablet (20 sources) Start: 03-27-2024 End: 03-27-2025 take 1 tablet by mouth once daily magnesium oxide (Mag-Ox) 400 mg (241.3 mg magnesium) tablet Indications: Non-ischemic cardiomyopathy (Multi) Take 1 tablet (400 mg) by mouth once daily. 90 tablet 3 03/27/2024 03/27/2025 Active menthol 0.04 mg/mg topical gel (9 sources) Start: 07-12-2024 End: 01-05-2025 menthol (Biofreeze, menthol,) 4 % gel gel Apply topically. 07/12/2024 Active 24 hr metoprolol succinate 25 mg extended release oral tablet (20 sources) beta-Adrenergic Abisai Start: 06-03-2024 take 1 tablet by mouth every twenty-four hours Metoprolol Succinate 25 mg tablet extended release 24 hr Active 25 MG PO Once June 03, 2024 12:00am Start: 05-24-2024 End: 05-24-2025 take 1 tablet by mouth once daily at bedtime metoprolol succinate XL (Toprol-XL) 25 mg 24 hr tablet Indications: Non-ischemic cardiomyopathy (Multi) , Diastolic dysfunction , 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 (Multi) Take 1 tablet (25 mg) by mouth once daily at bedtime. Do not crush or chew. 90 tablet 3 12/30/2024 3:39 PM EDT 05/24/2024 05/24/2025 Active multivitamin (Multiple Vitamins) tablet (14 sources) Start: 12-15-2016 take 1 tablet by mouth once daily multivitamin (Multiple Vitamins) tablet Take 1 tablet by mouth once daily. 12/15/2016 Active Multivitamin With Minerals (1 source) Start: 03-19-2024 take 1 capsule by mouth once daily Multivitamin With Minerals Active 1 CAP PO Daily March 19, 2024 12:00am Multivitamin With Minerals capsule (13 sources) Start: 03-19-2024 take 1 capsule by mouth once daily Start: 03-19-2024 take 1 capsule by mo [facility] once daily Multivitamin With Minerals capsule Active 1 CAP PO Daily March 19, 2024 1:00am Complies with drug therapy Start: 03-19-2024 take 1 capsule by mo ut once daily Multivitamin With Minerals capsule Active 1 CAP PO Daily March 19, 2024 1:00am Start: 03-19-2024 take 1 capsule by mo ut once daily Multivitamin With Minerals capsule Active 1 CAP PO Daily March 19, 2024 12:00am ofloxacin 3 mg/ml ophthalmic solution (1 source) Quinolone Antimicrobial Start: 01-05-2025 Ofloxa catrachito 0.3 % drops Active 1 DROPS EYE-LEFT Four times daily January 05, 2025 12:00am instill 1 DROP IN THE AFFECTED EYE(S) FOUR TIMES DAILY start 3 (THREE) days prior to surgery, then immediately following surgery EVERY HOUR WHILE AWAKE, then the next day FOUR TIMES DAILY until next appointment for further directions Complies with drug therapy Oxygen (6 sources) Start: 10-23-2023 Oxygen Active 0 .Route October 22, 2023 11:00pm 2 liters at HS and napping [facility] Start: 10-23-2023 Oxygen Active 0 .Route October 23, 2023 12:00am 2 liters at HS and napping [facility] Start: 10-23-2023 Oxygen Active 0 .ROUTE October 23, 2023 12:00am 2 liters at HS and napping [facility] Oxygen 2 liters pm and prn d ay (9 sources) Oxygen 2 liters pm and prn day at night and during the day prn Active Oxygen unit (13 sources) Start: 10-23-2023 Oxygen unit Ac tive 0 .Route October 23, 2023 12:00am 2 liters at HS and napping [facility] Start: 10-23-2023 Oxygen unit Ac tive 0 .Route October 22, 2023 11:00pm 2 liters at HS and napping [facility] pantoprazole 40 mg delayed release oral tablet (20 sources) Proton Pump Inhibitor Start: 02-18-2024 End: 07-09-2024 take 1 tablet by mouth once daily at breakfast Pantoprazole 40 mg tablet,delayed release (DR/EC) Discontinued 0 .ROUTE .COMPLEX February 18, 2024 7:41pm July 09, 2024 11:25am TAKE 1 TABLET BY MOUTH ONCE DAILY ON AN EMPTY STOMACH 30 MINUTES prior to BREAKFAST Start: 02-18-2024 take 1 tablet by melissa th once daily at breakfast Pantoprazole Active 0 .ROUTE .COMPLEX February 18, 2024 6:41pm TAKE 1 TABLET BY MOUTH ONCE DAILY ON AN EMPTY STOMACH 30 MINUTES prior to BREAKFAST Start: 02-18-2024 take 1 tablet by melissa th once daily at breakfast Pantoprazole Active 0 .ROUTE .COMPLEX February 18, 2024 7:41pm TAKE 1 TABLET BY MOUTH ONCE DAILY ON AN EMPTY STOMACH 30 MINUTES prior to BREAKFAST Start: 08-14-2023 End: 02-18-2024 pantoprazole (ProtoNix) 40 m g EC tablet 1 tablet (40 mg) early in the morning.. 02/19/2024 Active Start: 03-01-2023 Pantoprazole S odium 40 MG 1 tablet Orally Once a day, on an empty stomach 30 minutes prior to bkfst for 90 days Feb, Active End: 03-27-2024 take 1 tablet by mouth once daily before mealtime pantoprazole (ProtoNix) 20 mg EC tablet Take 1 tablet (20 mg) by mouth once daily in the morning. Take before meals. Do not crush, chew, or split. 03/27/2024 Discontinued (Dose adjustment) potassium chloride 10 meq extended release oral tablet (20 sources) Start: 08-05-2024 Potassium Chlo ride (Kbz-Jiql-Vyg 10) 10 mEq oral tablet, extended release 10 mEq = 1 tab(s), Refills(s) 0 Start Date: 08/05/24 Status: Ordered Repeat number: 1 Start: 03-27-2024 End: 11-19-2024 Potassium Chloride (Klor-Con 10) 10 mEq tablet extended release Active 10 MEQ PO Daily November 19, 2024 12:13pm Complies with drug therapy prednisoLONE acetate 10 mg/ml ophthalmic suspension (5 sources) Corticosteroid Start: 11-11-2024 take 1 drop(s) into the eye(s) four times daily Prednisolone Acetate 1 % drops,suspension Active 1 DROPS EYE-LEFT Four times daily November 11, 2024 12:00am Complies with drug therapy predniSONE 10 mg oral tablet (20 sources) Start: 01-09-2025 Start: 11-12-2024 End: 01-02-2025 Prednisone 10 mg tablet Disc ontinued 10 MG PO Daily November 12, 2024 12:00am January 02, 2025 3:08pm take 60mg (6 tabs aday) for 3 days, then 40mg (4tabs) for 3 days, then 20mg (2tabs) for 3 days, then 10mg (1tab) for 3 days. Start: 02-10-2019 End: 09-08-2023 take 5 mg by mouth once daily Prednisone 20 mg tablet Discontinued 5 MG PO Daily February 10, 2019 12:15am September 08, 2023 3:45pm Start: 02-10-2019 End: 09-08-2023 take 5 mg by mouth once daily Prednisone Discontinued 5 MG PO Daily February 09, 2019 11:15pm September 08, 2023 2:45pm Start: 07-06-2018 End: 02-10-2019 Prednisone 20 mg tablet Disc ontinued 20 MG PO As Directed July 06, 2018 1:00am February 10, 2019 12:07am administer with food or milk. Take 40mg for 3 days,then 20 mg for 3 days, then 10 mg for 3 days, then continue 5 mg as you used to take Start: 11-18-2010 End: 03-27-2024 take 1 tablet by mouth once daily Prednisone 5 mg tablet Discontinued 5 MG PO Daily September 08, 2023 12:00am February 28, 2024 11:35pm rivaroxaban 20 mg oral tablet (20 sources) Factor Xa Inhibitor Start: 02-04-2024 End: 03-22-2025 take 1 tablet by mouth once daily at mealtime rivaroxaban (Xarelto) 20 mg tablet Indications: Atrial fibrillation, unspecified type (Multi) Take 1 tablet (20 mg) by mouth once daily in the evening. Take with meals. 90 tablet 3 03/22/2024 03/22/2025 Active sacubitril 24 mg / valsartan 26 mg oral tablet (20 sources) Angiotensin 2 Receptor Abisai Start: 07-09-2024 End: 10-31-2024 take 1 tablet by mouth every twelve hours sacubitriL-valsarta n (Entresto) 24-26 mg tablet Take 1 tablet by mouth every 12 hours. 07/09/2024 10/31/2024 Discontinued (Entered in Error) Start: 05-11-2018 End: 11-11-2024 take 1 tablet by mouth twice daily Sacubitril-Valsartan (Entresto) 24-26 mg Tablet Discontinued 1 TAB PO Twice daily May 11, 2018 1:00am November 11, 2024 2:39am Start: 05-11-2018 take 1 tablet by melissa th twice daily Sacubitril-Valsartan (Entresto) 24-26 mg Tablet Active 1 TAB PO Twice daily May 11, 2018 1:00am Start: 05-11-2018 take 1 tablet by melissa th twice daily Sacubitril-Valsartan (Entresto) 24-26 mg Tablet Active 1 TAB PO Twice daily May 11, 2018 12:00am Start: 05-11-2018 take 1 tablet by melissa th twice daily Sacubitril-Valsartan (Entresto) 24-26 mg Tablet Active 1 TAB PO Twice daily May 11, 2018 12:00am On Hold: hypotension Start: 08-04-2015 take 1 tablet by melissa th twice daily Entresto 49-51 MG Oral Tablet TAKE 1 TABLET BY MOUTH TWICE DAILY Quantity: 60 Refills: 0 Ordered: 29-Dec-2015 DO Start : 04-Aug-2015 Active ENTRESTO 24 mg/2 6 mg 1 orally twice a day Active spironolactone 25 mg oral ta blet (3 sources) Aldosterone Antagonist Start: 01-09-2025 take 0.5 tablet by mouth once da winnie spironolactone (Aldactone) 25 mg tablet Take 0.5 tablets (12.5 mg) by mouth once daily. Active tamsulosin hydrochloride 0.4 mg oral capsule (20 sources) alpha-Adrenergic Abisai Start: 08-11-2024 take 1 capsule by mouth twice daily Tamsulosin 0.4 mg capsule Active 0 .ROUTE .COMPLEX 60 August 11, 2024 5:17pm TAKE 1 CAPSULE BY MOUTH TWICE DAILY Complies with drug therapy Start: 10-25-2021 End: 10-25-2021 take 1 capsule by mouth once daily Tamsulosin 0.4 mg capsule Discontinued 0.4 MG PO Daily October 25, 2021 12:00am October 25, 2021 2:10pm Start: 12-16-2019 End: 08-11-2024 take 1 capsule by mouth twice daily tamsulosin (Flomax) 0.4 mg 24 hr capsule Take 1 capsule (0.4 mg) by mouth 2 times a day. 12/16/2019 Active Thera Vitamin (9 sources) Thera Vitamin Ac tive valACYclovir 1000 mg oral tablet (5 sources) Herpesvirus Nucleoside Analog DNA Polymerase Inhibitor, Herpes Simplex Virus Nucleoside Analog DNA Polymerase Inhibitor, Herpes Zoster Virus Nucleoside Analog DNA Polymerase Inhibitor Start: 01-02-2025 Valacyclovir 1 gram tablet Active 1000 MG PO Twice daily January 02, 2025 12:00am Complies with drug therapy take 1 tablet by mouth twice brenna ly valACYclovir (Valtrex) 1 gram tablet Take 1 tablet (1,000 mg) by mouth 2 times a day. Active valsartan 40 mg oral tablet (20 sources) Angiotensin 2 Receptor Abisai Start: 01-09-2025 End: 01-15-2025 take 1 tablet by mouth once daily Start: 05-17-2024 End: 07-09-2024 Valsartan 40 mg tablet Disco ntinued 20 MG PO Daily May 17, 2024 12:32pm July 09, 2024 11:25am On Hold: None Start: 04-30-2024 End: 05-17-2024 Valsartan 40 mg tablet Disco ntinued 20 MG PO Twice daily May 06, 2024 2:28pm May 17, 2024 12:33pm Ventolin HFA 90 mcg/inh Aerosol-Adpt (2 sources) Start: 08-14-2023 Ventolin HFA 9 0 mcg/inh Aerosol-Adpt Refill(s) 0 Start Date: 08/14/23 Status: Ordered Repeat number: 1 Start: 08-14-2023 Ventolin HFA 9 0 mcg/inh Aerosol-Adpt Refill(s) 0 Start Date: 08/14/23 Status: Ordered Completed/Discontinued Medications Medication Drug Class(es) Dates Sig (Normalized) Sig (Original) acetaminophen 500 mg oral tablet (18 sources) Start: 08-05-2024 take 2 tablets by mouth every six hours as needed for fever acetaminophen 500 mg Tab 1,000 mg = 2 tab(s), Oral, q6hr, PRN for fever, # 120 tab(s), Refills(s) 0 Start Date: 08/05/24 Status: Ordered Quantity: 120.0 Unit: tab(s) Repeat number: 1 Start: 07-09-2024 End: 01-02-2025 take 1 tablet by mouth every four hours as needed acetaminophen (Tylenol) 500 mg tablet Take 1 tablet (500 mg) by mouth every 4 hours if needed. 07/09/2024 Active Start: 07-09-2024 End: 11-11-2024 take 1-3 tablets by mouth every six hours as needed for pain Acetaminophen 500 mg Tablet Discontinued 1000 MG PO Every 6 hours as needed for Pain Scale 1 - 3 or fever 0 July 09, 2024 1:00am November 11, 2024 4:46pm [id number] 200 actuat albuterol 0.09 mg/actuat metered dose inhaler (20 sources) beta2-Adrenergic Agonist Start: 10-23-2023 End: 07-09-2024 take 2 puff(s) by mouth every six hours as needed Albuterol Sulfate 90 mcg/actuation HFA aerosol inhaler Discontinued 0 .ROUTE .COMPLEX October 23, 2023 5:53pm July 09, 2024 11:25am INHALE 2 PUFFS BY MOUTH EVERY 6 HOURS NEEDED Start: 10-23-2023 End: 10-23-2023 Albuterol Sulfate (Ventolin Hfa) 90 mcg/actuation HFA aerosol inhaler Discontinued 2 PUFF INHALATION Q4H as needed for Shortness Of Breath Or Wheezing October 23, 2023 3:23pm October 23, 2023 5:53pm Dispense 6 inhalers (2 per month) Start: 10-23-2023 End: 10-23-2023 Albuterol Sulfate (Ventolin Hfa) 90 mcg/actuation HFA aerosol inhaler Discontinued 2 PUFF INHALATION Q4H October 23, 2023 2:23pm October 23, 2023 4:53pm Dispense 6 inhalers (2 per month) Start: 09-08-2023 End: 07-09-2024 take 2.5 mg by inhalation four times daily Albuterol Sulfate 2.5 mg /3 mL (0.083 %) solution for nebulization Discontinued 2.5 MG INHALATION Four times daily September 08, 2023 12:00am July 09, 2024 11:25am Start: 09-28-2022 take 2 puff(s) by in [...] 1 puff(s) by inhalation every six hours as needed for wheezing Albuterol Sulfate (Ventolin Hfa) 90 mcg/actuation Hfa Aerosol Inhaler Discontinued 2 PUFF INHALATION Q6H as needed for Shortness Of Breath Or Wheezing May 11, 2018 1:00am October 23, 2023 3:25pm amiodarone hydrochloride 200 mg oral tablet (20 sources) Antiarrhythmic Start: 03-25-2024 End: 03-25-2024 take 1 tablet by mouth once daily Amiodarone 200 mg tablet Discontinued 200 MG PO Daily March 25, 2024 1:00am March 25, 2024 3:33pm Start: 03-14-2024 End: 03-27-2024 take 1 tablet by mouth twice daily amiodarone (Pacerone) 200 mg tablet Indications: Atrial fibrillation, unspecified type (Multi) Take 1 tablet (200 mg) by mouth 2 times a day. 60 tablet 1 03/14/2024 03/27/2024 Discontinued (Therapy completed) Start: 03-01-2024 End: 03-20-2024 take 2 tablets by mouth twice daily Amiodarone 200 mg Tablet Discontinued 400 MG PO Twice daily 09 12March 01, 2024 12:00am March 20, 2024 1:50pm Start: 03-01-2024 End: 03-20-2024 take 400 mg by mouth twice daily Amiodarone Discontinued 400 MG PO Twice daily 09 12February 29, 2024 11:00pm March 20, 2024 12:50pm Start: 03-01-2024 End: 03-20-2024 take 400 mg by mouth twice daily Amiodarone Discontinued 200 MG PO Twice daily February 29, 2024 11:00pm March 20, 2024 12:50pm start after you complete 400 mg twice daily for 7 days amoxicillin 875 mg oral tablet (20 sources) Penicillin-class Antibacterial Start: 05-11-2018 End: 07-05-2018 take 1 tablet by mouth twice daily Amoxicillin 875 mg Tablet Discontinued 875 MG PO Twice daily May 11, 2018 1:00am July 05, 2018 2:03am amoxicillin 875 mg / clavulanate 125 mg oral tablet (20 sources) Penicillin-class Antibacterial Start: 02-11-2019 End: 10-25-2021 take 1 tablet by mouth every twelve hours Amoxicillin-Pot Clavulanate (Augmentin) 875-125 mg tablet Discontinued 1 TAB PO Q12H 03 03February 11, 2019 12:00am October 25, 2021 2:09pm Eat yogurt or take probiotic while on antibiotic. baclofen 10 mg oral tablet (20 sources) gamma-Aminobutyric Acid-ergic Agonist Start: 03-08-2024 End: 10-31-2024 take 1 tablet by mouth four times daily as needed for muscle spasms Baclofen 10 mg tablet Discontinued 10 MG PO Four times daily as needed for muscle spasm 09 12March 08, 2024 12:00am March 25, 2024 3:54pm carvedilol 6.25 mg oral tablet (20 sources) alpha-Adrenergic Abisai, beta-Adrenergic Abisai Start: 03-20-2024 End: 05-24-2024 take 3 tablets by mouth every twelve hours carvedilol (Coreg) 6.25 mg tablet Take 3 tablets (18.75 mg) by mouth every 12 hours. 03/20/2024 05/24/2024 Discontinued (Side effects) Start: 03-19-2024 End: 06-03-2024 take 3 tablets by mouth twice daily Carvedilol 6.25 mg tablet Discontinued 18.75 MG PO Twice daily March 25, 2024 3:29pm June 03, 2024 3:41pm Start: 03-19-2024 take 18.75 mg by melissa th twice daily Carvedilol Active 18.75 MG PO Twice daily 180 March 19, 2024 12:00am Start: 10-12-2023 End: 03-27-2024 take 1 tablet by mouth twice daily Carvedilol 12.5 mg tablet Discontinued 12.5 MG PO Twice daily 60 February 14, 2024 2:50pm March 20, 2024 1:50pm Start: 09-08-2023 End: 10-12-2023 take 1 tablet by mouth twice daily Carvedilol 6.25 mg tablet Discontinued 6.25 MG PO Twice daily September 08, 2023 12:00am October 12, 2023 2:00pm Start: 02-10-2019 take 6.25 mg by mout h twice daily Carvedilol Active 6.25 MG PO Twice daily February 10, 2019 12:09am Start: 05-13-2018 End: 09-08-2023 take 1 tablet by mouth twice daily Carvedilol 12.5 mg tablet Discontinued 12.5 MG PO Twice daily February 10, 2019 12:09am September 08, 2023 3:44pm Start: 05-11-2018 End: 05-13-2018 take 1 tablet by mouth twice daily Carvedilol 6.25 mg Tablet Discontinued 6.25 MG PO Twice daily May 11, 2018 1:00am May 13, 2018 2:03pm cefpodoxime 200 mg oral tablet (5 sources) Cephalosporin Antibacterial Start: 11-12-2024 End: 01-02-2025 take 1 tablet by mouth twice daily at mealtime Cefpodoxime 200 mg tablet Discontinued 200 MG PO Twice daily 6 November 12, 2024 12:00am January 02, 2025 3:05pm must administer with a meal/food cephalexin 500 mg oral capsule (20 sources) Cephalosporin Antibacterial Start: 07-06-2018 End: 02-10-2019 take 1 capsule by mouth twice daily Cephalexin 500 mg capsule Discontinued 500 MG PO Twice daily 10 July 06, 2018 1:00am February 10, 2019 12:10am fluticasone propionate 0.05 mg/actuat metered dose nasal spray (20 sources) Corticosteroid Start: 09-08-2023 End: 10-31-2024 Fluticasone Propionate 50 mcg/actuation spray,suspension Discontinued 1 SPRAY INTRANASAL Daily September 08, 2023 12:00am July 09, 2024 11:25am Start: 09-11-2019 fluticasone 0. 05 mg/inh Nasal [place] Nasal, Daily, Refill(s) 0 Start Date: 09/11/19 Status: Ordered Start: 05-11-2018 End: 02-10-2019 Fluticasone Propionate 50 mcg/actuation [place],Suspension Discontinued 1 SPRAY INTRANASAL Daily May 11, 2018 [...] (20 sources) Corticosteroid, beta2-Adrenergic Agonist Start: 02-02-2024 End: 06-03-2024 Fluticasone Propion-Salmeterol 500-50 mcg/dose blister with device Discontinued INHALATION February 02, 2024 12:00am June 03, 2024 3:41pm Start: 02-02-2024 End: 06-03-2024 Fluticasone Propion-Salmeter ol 500-50 mcg/dose blister with device Discontinued INHALATION February 01, 2024 11:00pm June 03, 2024 2:41pm Start: 02-02-2024 Fluticasone Pr opion-Salmeterol 500-50 mcg/dose blister with device Active INHALATION February 01, 2024 11:00pm Start: 02-02-2024 Fluticasone Pr opion-Salmeterol Active INHALATION February 01, 2024 11:00pm Start: 02-02-2024 Fluticasone Pr opion-Salmeterol Active INHALATION February 02, 2024 12:00am Start: 09-15-2023 End: 10-23-2023 Fluticasone Propion-Salmeter ol (Wixela Inhub) 500-50 mcg/dose blister with device Discontinued 1 INH INHALATION Twice daily 180 90 September 15, 2023 3:51pm October 23, 2023 2:25pm Start: 09-15-2023 End: 10-23-2023 Fluticasone Propion-Salmeter ol (Wixela Inhub) 500-50 mcg/dose blister with device Discontinued 1 INH INHALATION Twice daily 180 90 September 15, 2023 4:51pm October 23, 2023 3:25pm Start: 09-15-2023 End: 09-15-2023 Fluticasone Propion-Salmeter ol (Wixela Inhub) 500-50 mcg/dose blister with device Discontinued 1 INH INHALATION Twice daily September 14, 2023 11:00pm September 15, 2023 3:51pm Start: 09-15-2023 End: 09-15-2023 Fluticasone Propion-Salmeter ol (Wixela Inhub) 500-50 mcg/dose blister with device Discontinued 1 INH INHALATION Twice daily September 15, 2023 12:00am September 15, 2023 4:51pm Start: 08-14-2023 Wixela Inhub 5 00 mcg-50 mcg inhalation powder Refill(s) 0 Start Date: 08/14/23 Status: Ordered Repeat number: 1 Start: 08-14-2023 fluticasone pr opion-salmeteroL (Advair Diskus) 500-50 mcg/dose diskus inhaler Inhale 1 puff. 08/14/2023 Active Start: 09-11-2019 Advair 100 mcg -50 mcg [...] inhaler Discontinued 2 INH INHALATION Twice daily May 13, 2018 12:00am October 12, 2023 1:01pm Start: 05-13-2018 End: 10-12-2023 Fluticasone Propion-Salmeter ol (Advair Hfa) 230-21 mcg/actuation HFA aerosol inhaler Discontinued 2 INH INHALATION Twice daily May 13, 2018 1:00am October 12, 2023 2:01pm Start: 05-11-2018 End: 05-13-2018 Fluticasone Propion-Salmeter ol (Advair Diskus) 500-50 mcg/dose Blister With Device Discontinued 1 INH INHALATION Twice daily May 11, 2018 9:16pm May 13, 2018 2:03pm Start: 05-11-2018 End: 05-13-2018 Fluticasone Propion-Salmeter ol (Advair Diskus) 500-50 mcg/dose Blister With Device Discontinued 1 INH INHALATION Twice daily May 11, 2018 12:00am May 13, 2018 1:03pm Start: 05-11-2018 End: 05-13-2018 Fluticasone Propion-Salmeter ol (Advair Diskus) 500-50 mcg/dose Blister With Device Discontinued 1 INH INHALATION Twice daily May 11, 2018 1:00am May 13, 2018 2:03pm Dsxoclyuqzb-Wjmequghp-Plqbxy er (19 sources) Start: 10-23-2023 End: 01-02-2025 Bhtzdvqucqu-Cokpijchs-Tfvjaq er (Trelegy Ellipta) 200-62.5-25 mcg blister with device Discontinued 1 INH INHALATION Daily 180 October 23, 2023 12:00am January 02, 2025 3:06pm Rinse after use Start: 10-23-2023 Start: 10-23-2023 Fluticasone-Um eclidin-Vilanter (Trelegy Ellipta) 200-62.5-25 mcg blister with device Active 1 INH INHALATION Daily 180 October 23, 2023 12:00am Rinse after use Complies with drug therapy Start: 10-23-2023 Fluticasone-Um eclidin-Vilanter (Trelegy Ellipta) 200-62.5-25 mcg blister with device Active 1 INH INHALATION Daily 180 October 22, 2023 11:00pm Rinse after use Start: 10-23-2023 Fluticasone-Um eclidin-Vilanter (Trelegy Ellipta) 200-62.5-25 mcg blister with device Active 1 INH INHALATION Daily 180 October 23, 2023 12:00am Rinse after use ejjkxmsawii-ekpjuagmx-wkotfs er (TRELEGY-ELLIPTA) 200-62.5-25 mcg blister with device (11 sources) Start: 10-23-2023 End: 01-15-2025 yvufkffxmqi-duqpgrxsk-vcqvyj er (TRELEGY-ELLIPTA) 200-62.5-25 mcg blister with device Kvadibedkfp-Gyhupkftq-Dyodsant (Trelegy Ellipta) 200-62.5-25 mcg blister with device Active 1 INH INHALATION Daily October 22, 2023 11:00pm Rinse after use 10/23/2023 01/15/2025 Discontinued (Therapy completed) Start: 10-23-2023 fluticasone-um eclidin-vilanter (TRELEGY-ELLIPTA) 200-62.5-25 mcg blister with device Xfytgiynzmy-Ypthhrfbe-Ndufebnz (Trelegy Ellipta) 200-62.5-25 mcg blister with device Active 1 INH INHALATION Daily 180 October 22, 2023 11:00pm Rinse after use 10/23/2023 Active 12 hr guaiFENesin 600 mg extended release oral tablet (5 sources) Start: 11-12-2024 End: 01-02-2025 take 1 tablet by mouth twice daily Guaifenesin 600 mg Tablet Extended Release 12hr Discontinued 1200 MG PO Twice daily 01 10November 12, 2024 12:00am January 02, 2025 3:06pm methylPREDNISolone 4 mg oral tablet (20 sources) Corticosteroid Start: 05-13-2018 End: 07-06-2018 take 1 tablet by mouth once Methylprednisolone (Medrol (Man)) 4 mg tablets,dose pack Discontinued 0 PO per package directions May 13, 2018 1:00am July 06, 2018 1:34pm PO PER PKG DIR Multiple Vitamins Oral Tablet (8 sources) Start: 12-15-2016 Multiple Vitamins Oral Tablet Quantity: 0 Refills: 0 Ordered: 15-Dec-2016 DO Start : 15-Dec-2016 Active Pantoprazole 40 mg tablet,delayed release (DR/EC) (7 sources) Start: 02-18-2024 End: 07-09-2024 take 1 tablet by mouth once daily at breakfast Pantoprazole 40 mg tablet,delayed release (DR/EC) Discontinued 0 .ROUTE .COMPLEX February 18, 2024 7:41pm July 09, 2024 11:25am TAKE 1 TABLET BY MOUTH ONCE DAILY ON AN EMPTY STOMACH 30 MINUTES prior to BREAKFAST Start: 02-18-2024 End: 07-09-2024 take 1 tablet by mouth once daily at breakfast Pantoprazole 40 mg tablet,delayed release (DR/EC) Discontinued 0 .ROUTE .COMPLEX February 18, 2024 6:41pm July 09, 2024 10:25am TAKE 1 TABLET BY MOUTH ONCE DAILY ON AN EMPTY STOMACH 30 MINUTES prior to BREAKFAST Start: 02-18-2024 take 1 tablet by melissa th once daily at breakfast Pantoprazole 40 mg tablet,delayed release (DR/EC) Active 0 .ROUTE .COMPLEX February 18, 2024 6:41pm TAKE 1 TABLET BY MOUTH ONCE DAILY ON AN EMPTY STOMACH 30 MINUTES prior to BREAKFAST polysaccharide iron complex 150 mg oral capsule (20 sources) Start: 05-11-2018 End: 02-10-2019 Polysaccharide Iron Complex (Ferrex 150) 150 mg iron Capsule Discontinued 150 MG PO Daily May 11, 2018 1:00am February 10, 2019 12:11am regadenoson (Lexiscan) injection 0.4 mg (1 source) Start: 06-12-2024 End: 06-12-2024 0.4 mg, intravenous, Once, On Mon06/12/24 at 1330, For 1 dose Tc-99m tetrofosmin (Myoview) injection 10 millicurie (1 source) Start: 06-12-2024 End: 06-12-2024 10 millicurie, intravenous, Once in imaging, Starting on Mon06/12/24 at 1245, For 1 dose, Administer 45 to 90 minutes prior to imaging unless otherwise indicated. Tc-99m tetrofosmin (Myoview) injection 30 millicurie (1 source) Start: 06-12-2024 End: 06-12-2024 30 millicurie, intravenous, Once in imaging, Starting on Mon06/12/24 at 1349, For 1 dose, Administer 45 to 90 minutes prior to imaging unless otherwise indicated. tiotropium 0.018 mg inhalation powder (20 sources) Anticholinergic Start: 05-11-2018 End: 09-08-2023 take 1 capsule by inhalation once daily Tiotropium Mohler (Spiriva With Handihaler) 18 mcg Capsule, W/Inhalation Device Discontinued 1 CAP INHALATION Daily May 11, 2018 1:00am September 08, 2023 3:46pm Problems Active Problems Problem Classification Problem Date Documented Da te Episodic/Chronic Abdominal hernia (9 sources) Hiatal hernia; Translations: [Diaphragmatic hernia without obstruction or gangrene] Episodic Acute myocardial infarction (7 sources) Myocardial infarction; Translations: [Non-ST elevation (NSTEMI) myocardial infarction] Onset: 5 01-05-2025 Chronic Administrative/social admission (3 sources) Drug indicated; Translations: [Long-term current use of steroids] Episodic Alcohol-related disorders (20 sources) Nondependent alcohol abuse; Translations: [Nondependent alcohol [...] classified] Onset: 2 Resolved: 2 09-11-2019 Chronic Complications of surgical procedures or medical care (1 source) Drug-induced hypotension; Translations: [Hypotension due to drugs] 05-24-2024 Episodic Congestive heart failure; nonhypertensive (20 sources) Chronic systolic heart failure; Translations: [Chronic systolic (congestive) heart failure] Onset: 4 02-10-2019 Chronic Comment on above: Echo: LVEF 45-50%, n ormal RV size/function, mild aortic root dilatation 4.0 cm - 02/2024 Deficiency and other anemia (2 sources) Chronic anemia; Translations: [Anemia in other chronic diseases classified elsewhere] 02-10-2019 Chronic Deficiency and other anemia (1 source) Anemia due to chronic blood loss; Translations: [Iron deficiency anemia secondary to blood loss (chronic)] Onset: 6 Chronic Deficiency and other anemia (20 sources) Anemia; Translations: [Anemia, unspecified] 10-26-2021 Episodic Deficiency and other anemia (2 sources) Anemia, unspecified; Translations: [Anemia, unspecified] Onset: 2 Resolved: 2 Episodic Deficiency and other anemia (9 sources) Iron deficiency anemia; Translations: [Iron deficiency anemia, unspecified] Episodic Disorders of lipid metabolism (1 source) Dyslipidemia; Translations: [Hyperlipidemia, unspecified] 03-27-2024 Chronic Diverticulosis and diverticulitis (9 sources) Diverticular disease; Translations: [Diverticulosis of intestine, part unspecified, without perforation or abscess without bleeding] Chronic Esophageal disorders (10 sources) Gastro-esophageal reflux disease with esophagitis; Translations: [Gastroesophageal reflux disease with esophagitis without hemorrhage] Onset: 2 07-21-2024 Chronic Essential hypertension (20 sources) Hypertensive disorder; Translations: [Essential (primary) hypertension] Onset: 6 09-11-2019 Chronic Gastrointestinal hemorrhage (20 sources) Rectal hemorrhage; Translations: [Hemorrhage of anus and rectum] 02-14-2024 Episodic Genitourinary symptoms and ill-defined conditions (5 sources) Urinary incontinence 02-17-2020 Chronic Gout and other crystal arthropathies (6 sources) Gout; Translations: [Primary gout] Onset: 6 [...] Vaccination given; Translations: [Encounter for immunization] Episodic Mood disorders (5 sources) Depressive disorder 09-11-2019 Chronic Mycoses (9 sources) Aspergillosis; Translations: [Aspergillosis, unspecified] Episodic Occlusion or stenosis of precerebral arteries (20 sources) Right carotid artery stenosis; Translations: [Occlusion and stenosis of right carotid artery] Onset: 4 03-13-2024 Chronic Comment on above: CTA: 90% right ICA - 02/2024 Osteoarthritis (1 source) Localized, primary osteoarthritis of the pelvic region and thigh; Translations: [Unilateral primary osteoarthritis, right hip] Chronic Other aftercare (4 sources) 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; Translations: [OTH [facility] CURRENT DRUG THERAPY] Onset: 3 Episodic Other aftercare (1 source) Long-term current use of drug therapy; Translations: [Other senior living (current) drug therapy] Episodic Other aftercare (19 sources) Drug therapy finding; Translations: [senior living (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] 02-04-2024 Episodic Other aftercare (12 sources) 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; Translations: [Long-term (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] Onset: 4 02-04-2024 Episodic Other aftercare (18 sources) Taking high risk medication; Translations: [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] Onset: 5 03-27-2024 Episodic Other aftercare (3 sources) Long-term current use of anticoagulant; Translations: [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] Onset: 5 01-15-2025 Episodic Other and ill-defined heart disease (20 sources) Mural thrombus of left ventricle; Translations: [Acute myocardial infarction of unspecified site, episode of care unspecified] Onset: 4 10-13-2023 Chronic Other and ill-defined heart disease (20 sources) Diastolic dysfunction; Translations: [Heart disease, unspecified] Onset: 4 10-13-2023 Chronic Other and ill-defined heart disease (8 sources) Left ventricular systolic dysfunction; Translations: [Other ill-defined heart diseases] 03-15-2024 Chronic Other and ill-defined heart disease (9 sources) Other ill-defined heart diseases; Translations: [Heart disease, unspecified] Onset: 4 03-20-2024 Chronic Other and ill-defined heart disease (4 sources) Intracardiac thrombosis, not elsewhere classified; Translations: [Intracardiac thrombosis, not elsewhere classified] Onset: 4 Chronic Other and ill-defined heart disease (6 sources) Mild left ventricular systolic dysfunction; Translations: [Other ill-defined heart diseases] 03-28-2024 Chronic Other and ill-defined heart disease (6 sources) Takotsubo cardiomyopathy; Translations: [Takotsubo syndrome] 01-08-2025 Chronic Other and ill-defined heart disease (3 sources) Takotsubo syndrome; Translations: [Takotsubo syndrome] Onset: Chronic Other and ill-defined heart disease (3 sources) Left ventricular cardiac dysfunction; Translations: [Heart disease, unspecified] Onset: 5 01-16-2025 Chronic Other and unspecified benign neoplasm (20 sources) Cerebellopontine angle tumor; Translations: [Benign neoplasm of cranial nerves] Onset: 4 07-26-2023 Chronic Other and unspecified benign neoplasm (11 sources) Benign neoplasm of cranial nerves; Translations: [Benign neoplasm of cranial nerves] Onset: 2 Chronic Other and unspecified benign neoplasm (20 sources) Acoustic neuroma; Translations: [Benign neoplasm of cranial nerves] 09-09-2023 Chronic Other and unspecified benign neoplasm (20 sources) History of polyp of colon; Translations: [...] [Benign neoplasm of sigmoid colon] Episodic Other circulatory disease (9 sources) Low blood pressure; Translations: [Hypotension, unspecified] Onset: 5 05-30-2024 Episodic Other circulatory disease (4 sources) Hypotension, unspecified; Translations: [Hypotension, unspecified] 06-03-2024 Episodic Other connective tissue disease (5 sources) Muscle weakness; Translations: [Muscle weakness (generalized)] Onset: 5 07-21-2024 Episodic Other diseases of kidney and ureters (1 source) Urinary tract obstruction; Translations: [Other obstructive and reflux uropathy] Onset: 2 Episodic Other ear and sense organ disorders (20 sources) Asymmetrical sensorineural hearing loss; Translations: [Sensorineural hearing loss, asymmetrical] Onset: 4 07-26-2023 Chronic Other ear and sense organ disorders (20 sources) Bilateral hearing loss; Translations: [Mixed hearing loss, bilateral] Onset: 4 07-26-2023 Chronic Other endocrine disorders (4 sources) Syndrome of inappropriate secretion of antidiuretic hormone; Translations: [SYNDROME INAPPROPRIATE SEC ADH] Onset: 2 Chronic Other endocrine disorders (1 source) Syndrome of inappropriate vasopressin secretion; Translations: [Syndrome of inappropriate secretion of antidiuretic hormone] Chronic Other endocrine disorders (1 source) Hypercortisolism; 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 Other fractures (10 sources) Compression fracture of thoracic spine; Translations: [Wedge compression fracture of unspecified thoracic vertebra, initial encounter for closed fracture] 07-03-2024 Episodic Other fractures (5 sources) Fracture of seventh thoracic vertebra; Translations: [Wedge compression fracture of T7-T8 vertebra, subsequent encounter for fracture with routine healing] Onset: 5 07-21-2024 Episodic Other fractures (5 sources) Closed fracture thoracic vertebra, wedge; Translations: [Wedge compression fracture of T7-T8 vertebra, subsequent encounter for fracture with routine healing] Onset: 5 07-21-2024 Episodic Other hematologic conditions (4 sources) H/O: Disorder; Translations: [Personal history of diseases of the blood and blood-forming organs and certain disorders involving the immune mechanism] 01-05-2025 Episodic Other hematologic conditions (1 source) Personal history of diseases of the blood and blood-forming organs and certain disorders involving the immune mechanism; Translations: [Personal history of diseases of the blood and blood-forming organs and certain disorders involving the immune mechanism] Onset: 5 Episodic Other infections; including parasitic (1 source) H/O: [...] Episodic Other lower respiratory disease (4 sources) Hypoxemia; Translations: [Hypoxemia] 11-19-2024 Episodic Other lower respiratory disease (20 sources) Dyspnea; Translations: [Other forms of dyspnea] 02-28-2024 Episodic Other nervous system disorders (20 sources) Disorder of brain; Translations: [Encephalopathy, unspecified] Onset: 5 03-13-2024 Chronic Other nervous system disorders (8 sources) Encephalopathy, unspecified; Translations: [Encephalopathy, unspecified] Onset: 4 03-20-2024 Chronic Other non-traumatic joint disorders (1 source) Pain in right hip joint; Translations: [Pain in right hip] Episodic Other nutritional; endocrine; and metabolic disorders (5 sources) Decreased body mass index; Translations: [Body mass index (BMI) 19.9 or less, adult] Onset: 5 10-31-2024 Episodic Other nutritional; endocrine; and metabolic disorders (2 sources) Body mass index (BMI) 19.9 or less, adult; Translations: [Body mass index (BMI) 19.9 or less, adult] Onset: 5 Episodic Lenka-; endo-; and myocarditis; cardiomyopathy (except that caused by tuberculosis or sexually transmitted disease) (20 sources) Cardiomyopathy; Translations: [Other primary cardiomyopathies] Onset: 2 02-10-2019 Chronic Comment on above: Echo: LVEF 45-50%, n ormal RV size/function, mild aortic root dilatation 4.0 cm - 02/2024 Pneumonia (except that caused by tuberculosis or [...] of digestive system] Episodic Residual codes; unclassified (16 sources) Edema of lower extremity; Translations: [Localized edema] 02-29-2024 Episodic Residual codes; unclassified (15 sources) Altered mental status; Translations: [Altered mental status, unspecified] 05-01-2024 Episodic Residual codes; unclassified (3 sources) Chews tobacco ; Translations: [Tobacco use] Onset: 5 01-15-2025 Episodic Residual codes; unclassified (2 sources) Tobacco use; Translations: [Tobacco use] Onset: 5 Episodic Respiratory failure; insufficiency; arrest (adult) (20 sources) Chronic hypoxemic respiratory failure; Translations: [Chronic [...] Spondylosis; intervertebral disc disorders; other back problems (12 sources) Lumbar spondylosis; Translations: [Spondylosis without myelopathy or radiculopathy, lumbar region] Onset: 5 Chronic Unclassified (2 sources) COUGH, UNSPECIFIED; Translations: [...] infarction, not elsewhere classified] Onset: 5 Unclassified (9 sources) A [facility] screening has identified you as FRAIL or AT RISK FOR FRAILTY. This puts you at a higher risk for infection, illness, falls, and other injuries. Here are four ways to help you reduce your risk of frailty: 1. IDENTIFY EARLY SIGNS OF FRAILTY Discuss contributing factors and concerns with your doctor 2. BE ACTIVE Walking and light strengthening exercises will help reduce weakness 3. EAT WELL Aim for three healthy meals a day that are high in protein 4. THINK POSITIVE Keep your mind active by being sociable and continuing to learn References: Stay Strong: Four Ways to Beat the Frailty Risk [email or web address] ixr-rlq-xjyjlhtdof/sta g-knxtlq-wunl-ways-to- oydk-tlj-yqe ilty-risk 07-09-2024 Unclassified (10 sources) Follow-up with your Primary Care Provider, call office to reschedule if needed. Unclassified (1 source) You have been scheduled for a follow up appointment for the following date and time, please call to reschedule if needed. Unclassified (1 source) Other persistent atrial fibrillation; Translations: [Other persistent atrial fibrillation] Onset: 4 Unclassified (1 source) Other ventricular tachycardia; Translations: [Other ventricular tachycardia] Onset: 4 Past or Other Problems Problem Classification Problem Date Documented Date Episodic/Chronic Abdominal pain (20 sources) Abdominal pain; Translations: [Unspecified abdominal pain] Onset: 03-13-2024 03-08-2024 Episodic Acute posthemorrhagic anemia (1 source) Acute posthemorrhagic anemia; Translations: [Acute posthemorrhagic anemia] Onset: 04-22-2015 Episodic Conditions associated with dizziness or vertigo (20 sources) Vertigo; Translations: [Dizziness and giddiness] Onset: 07-26-2023 02-10-2019 Episodic E Codes: Fall (15 sources) Fall; Translations: [Unspecified fall, initial encounter] Onset: 07-03-2024 07-03-2024 Episodic Esophageal disorders (3 sources) Esophageal disorders; Translations: [Gastro-esophageal reflux disease with esophagitis, without bleeding] Onset: 10-26-2021 Fluid and electrolyte disorders (20 sources) Hyponatremia; Translations: [Hypo-osmolality and hyponatremia] Onset: 09-18-2015 02-10-2019 Episodic Genitourinary symptoms and ill-defined conditions (20 sources) Retention of urine; Translations: [Retention of urine, unspecified] Onset: 08-02-2016 Episodic Malaise and fatigue (20 sources) Other fatigue; Translations: [Fatigue] Onset: 06-24-2016 05-24-2024 Episodic Nonspecific chest pain (1 source) Chest pain, [...] venous (peripheral) insufficiency] Onset: 02-21-2017 Episodic Other fractures (5 sources) Wedge compression fracture of unspecified thoracic vertebra, initial encounter for closed fracture; Translations: [Closed fracture of dorsal [thoracic] vertebra without mention of spinal cord injury] Onset: 07-03-2024 07-03-2024 Episodic Other infections; including parasitic (20 sources) Personal history of other infectious and parasitic diseases; 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] Onset: 02-02-2024 10-23-2023 Episodic Other lower respiratory disease (3 sources) Hemoptysis; Translations: [Hemoptysis] Resolved: 05-27-2020 02-10-2019 Episodic Other lower respiratory disease (8 sources) Shortness of breath; Translations: [Shortness of breath] Onset: 04-21-2022 02-28-2024 Episodic Other nervous system disorders (20 sources) Impairment of balance; Translations: [Abnormality of gait] Onset: 07-26-2023 10-13-2023 Episodic Other screening for suspected conditions (not mental disorders or infectious disease) (20 sources) Raised prostate specific antigen; Translations: [Elevated prostate specific antigen [PSA]] Onset: 08-09-2021 Episodic Other upper respiratory infections (1 source) Acute upper respiratory infection, unspecified; Translations: [ACUTE UP RESPIRATORY INFECTION UNS] Onset: 04-21-2022 Episodic Residual codes; unclassified (20 sources) Body mass index 20-24 - normal; Translations: [Body Mass Index between 19-24, adult] Onset: 10-13-2023 10-13-2023 Episodic Residual codes; unclassified (7 sources) Localized edema; Translations: [Edema] Onset: 05-17-2022 03-01-2024 Episodic Residual codes; unclassified (1 source) Edema; Translations: [Edema] Onset: 06-24-2016 Episodic Residual codes; unclassified (9 sources) Altered mental status, unspecified; Translations: [Altered mental status] Onset: 07-03-2024 05-01-2024 Episodic Residual codes; unclassified (2 sources) Body mass index (BMI) 21.0-21.9, adult; Translations: [Body mass index (BMI) 21.0-21.9, adult] Onset: 05-24-2024 Episodic Residual codes; unclassified (2 sources) Body mass index (BMI) 20.0-20.9, adult; Translations: [Body mass index (BMI) 20.0-20.9, adult] Onset: 03-27-2024 Episodic Substance-related disorders (20 sources) Nicotine dependence, other tobacco product, uncomplicated; Translations: [Nicotine dependence, cigarettes, uncomplicated] Onset: 11-22-2021 Resolved: 01-15-2025 10-13-2023 Chronic Unclassified (1 source) COUGH, UNSPECIFIED; Translations: [COUGH, UNSPECIFIED] Onset: 04-19-2022 Unclassified (1 source) Never smoked tobacco; Translations: [Never a smoker] Unclassified (14 sources) Onset: 10-13-2023 Resolved: 01-15-2025 10-13-2023 Urinary tract infections (20 sources) Urinary tract infectious disease; Translations: [Urinary tract infection, site not specified] Onset: 08-14-2023 Episodic Results Test Name Value Interpretation Reference Range Facility Basic Metabolic Panelon 08-2 Creatinine Clr Calc Pharmacy 51.32 Normal [facility] Comment on above: Performed By: #### B MP, MG ####[place] [id number] [facility] GFR/1.73 sq M.predicted MDRD (S/P/Bld) [Vol rate/Area] mL/min/{1.73_m2} Normal [facility] Comment on above: Performed By: #### B MP, MG ####[place] [id number] [facility] Calcium [Mass/volume] in Ser um or PlasmaOrdered By: Jostin Larose on 01-09-2025 Calcium [Mass/Vol] 8.8 mg/dL Normal 8.6-10.3 [facility] Comment on above: Performed By: #### B MP, MG ####[place] [id number] [facility] Carbon dioxide, total [Moles /volume] in Serum or PlasmaOrdered By: Jostin Larose on 01-09-2025 CO2 [Moles/Vol] 26.9 mmol/L Normal 21.0-31.0 [facility] Comment on above: Performed By: #### B LISA, MG ####[place] [id number] [facility] Chloride [Moles/volume] in S christine or PlasmaOrdered By: Jostin Larose on 01-09-2025 Chloride [Moles/Vol] 104 mmol/L Normal 98-107 [facility] Comment on above: Performed By: #### B MP, MG ####[place] [id number] [facility] Creatinine [Mass/volume] in Serum or PlasmaOrdered By: Jostin Larose on 01-09-2025 Creatinine [Mass/Vol] 1.15 mg/dL Normal 0.70-1.30 [facility] Comment on above: Performed By: #### B MP, MG ####[place] [id number] [facility] ECG 12 lead ECGon 01-09-2025 ECG 12 lead ECG Normal [facility] Glomerular filtration rate [ Volume Rate/Area] in Serum, Plasma or Blood by CreatinineOrdered By: Jostin Larose on 01-09-2025 Glomerular filtration rate [Volume Rate/Area] in Serum, Plasma or Blood by Creatinine > 60.0 mL/Min [facility] Glucose [Mass/volume] in Ser um or PlasmaOrdered By: Jostin Larose on 01-09-2025 Glucose [Mass/Vol] 132 mg/dL High 70-100 [facility] Comment on above: ADA recommended refe rence rangeRandom Glucose Reference Range is dependent on time and content of last meal. Glucose of more than 200 mg/dL in a nonstressed, ambulatory subject supports the diagnosis of Diabetes Mellitus. Result Comment: [place] om Glucose Reference Range is dependent on time and content of last meal. Glucose of more than 200 mg/dL in a nonstressed, ambulatory subject supports the diagnosis of Diabetes Mellitus. ADA recommended reference range Performed By: #### B MP, MG ####[place] [id number] Magnesium [Mass/volume] in S christine or PlasmaOrdered By: Jostin Larose on 01-09-2025 Magnesium [Mass/Vol] 2.3 mg/dL Normal 1.9-2.7 [facility] Comment on above: Result Comment: PERF ORMED BY:[address] [place], [place] [phone] MEDICAL JOSEE CASTANEDA M.D. Performed By: #### B MP, MG ####[address] No Panel InformationOrdered By: Jostin Larose on 01-09-2025 Pharmacy Creatinine Clearance (Chem 51.32 [facility] Potassium [Moles/volume] in Serum or PlasmaOrdered By: Jostin Larose on 01-09-2025 Potassium [Moles/Vol] 4.9 mmol/L Normal 3.5-5.1 [facility] Comment on above: Performed By: #### B MP, MG ####[address] Serum or plasma anion gap de terminationOrdered By: Jostin Larose on 01-09-2025 Anion gap [Moles/Vol] 11.0 mmol/L Normal 6.0-15.0 [facility] Comment on above: Performed By: #### B LISA, MG ####[place] [id number] [place] [address] [facility] Sodium [Moles/volume] in Ser um or PlasmaOrdered By: Jostin Larose on 01-09-2025 Sodium [Moles/Vol] 137 mmol/L Normal 136-145 [facility] Comment on above: Performed By: #### B LISA, MG ####[place] [id number] [place] [id number] [facility] Urea nitrogen [Mass/volume] in Serum or PlasmaOrdered By: Jostin Larose on 01-09-2025 Urea nitrogen [Mass/Vol] 45 mg/dL High 7-25 [facility] Comment on above: Performed By: #### B LISA, MG ####[address] [address] [facility] Basic Metabolic Panelon 12-14 Anion gap [Moles/Vol] 10.0 mmol/L Normal 6.0-15.0 [facility] Comment on above: Performed By: #### Marcelo Paulino, BMP ####[address] [address] [facility] Calcium [Mass/Vol] 8.8 mg/dL Normal 8.6-10.3 [facility] Comment on above: Performed By: #### Marcelo Paulino, BMP ####[address] [address] [facility] Chloride [Moles/Vol] 102 mmol/L Normal 98-107 [facility] Comment on above: Performed By: #### Marcelo Paulino, BMP ####[address] [address] [facility] CO2 [Moles/Vol] 27.4 mmol/L Normal 21.0-31.0 [facility] Comment on above: Performed By: #### Marcelo Paulino, BMP ####[place] [id number] [facility] Creatinine [Mass/Vol] 1.30 mg/dL Normal 0.70-1.30 [facility] Comment on above: Performed By: #### Marcelo Paulino, BMP ####[place] [id number] [facility] Creatinine Clr Calc Pharmacy 45.62 Normal [facility] Comment on above: Performed By: #### Marcelo Paulino, BMP ####[place] [id number] [facility] GFR/1.73 sq M.predicted MDRD (S/P/Bld) [Vol rate/Area] 59.099 mL/min/{1.73_m2} Normal [facility] Comment on above: Performed By: #### Marcelo Paulino, BMP ####[place] [id number] [facility] Glucose [Mass/Vol] 142 mg/dL High 70-100 [facility] Comment on above: Result Comment: [place] Glucose Reference Range is dependent on time and content of last meal. Glucose of more than 200 mg/dL in a nonstressed, ambulatory subject supports the diagnosis of Diabetes Mellitus. ADA recommended reference range Performed By: #### Marcelo Paulino, BMP ####[place] [id number] [facility] Potassium [Moles/Vol] 4.4 mmol/L Normal 3.5-5.1 [facility] Comment on above: Performed By: #### Marcleo Paulino, BMP ####[place] [id number] [facility] Sodium [Moles/Vol] 135 mmol/L Low 136-145 [facility] Comment on above: Performed By: #### Marcelo Paulino, BMP ####[place] [id number] [facility] Urea nitrogen [Mass/Vol] 35 mg/dL High 7-25 [facility] Comment on above: Performed By: #### Marcelo Paulino, BMP ####[place] [id number] [facility] ECG 12 lead ECGon 01-08-2025 ECG 12 lead ECG Normal [facility] Magnesiumon 01-08-2025 Magnesium [Mass/Vol] 1.8 mg/dL Low 1.9-2.7 [facility] Comment on above: Result Comment: PERF ORMED BY:[place] [address] [address] [place], [place] [id number] MEDICAL DIRECTORREGGIE CASTANEDA M.D. Performed By: #### M G, BMP ####[place] [id number] [facility] Basic Metabolic Panelon 12-14 Anion gap [Moles/Vol] 9.0 mmol/L Normal 6.0-15.0 [facility] Comment on above: Performed By: #### C BCNO, MG, BMP ####[place] [address] [facility] Calcium [Mass/Vol] 8.7 mg/dL Normal 8.6-10.3 [facility] Comment on above: Performed By: #### C BCNO, MG, BMP ####[place] [address] [facility] Chloride [Moles/Vol] 106 mmol/L Normal 98-107 [facility] Comment on above: Performed By: #### C BCNO, MG, BMP ####[place] [id number] [facility] CO2 [Moles/Vol] 27.0 mmol/L Normal 21.0-31.0 [facility] Comment on above: Performed By: #### C BCNO, MG, BMP ####[address] [address] [facility] Creatinine [Mass/Vol] 0.98 mg/dL Normal 0.70-1.30 [facility] Comment on above: Performed By: #### C BCNO, MG, BMP ####[address] [address] [facility] Creatinine Clr Calc Pharmacy 60.71 Normal [facility] Comment on above: Performed By: #### C BCNO, MG, BMP ####[place] [id number] [place] [id number] [facility] GFR/1.73 sq M.predicted MDRD (S/P/Bld) [Vol rate/Area] mL/min/{1.73_m2} Normal [facility] Comment on above: Performed By: #### C BCGIOVANNA, MG, BMP ####[place] [id number] [place] [id number] [facility] Glucose [Mass/Vol] 94 mg/dL Normal 70-100 [facility] Comment on above: Result Comment: [facility] Glucose Reference Range is dependent on time and content of last meal. Glucose of more than 200 mg/dL in a nonstressed, ambulatory subject supports the diagnosis of Diabetes Mellitus. ADA recommended reference range Performed By: #### C DANIAL MG, BMP ####[place] [id number] Potassium [Moles/Vol] 4.0 mmol/L Normal 3.5-5.1 [facility] Comment on above: Performed By: #### C BCGIOVANNA, MG, BMP ####[place] [id number] [facility] Sodium [Moles/Vol] 138 mmol/L Normal 136-145 [facility] Comment on above: Performed By: #### C DANIAL, MG, BMP ####[place] [id number] [facility] Urea nitrogen [Mass/Vol] 29 mg/dL High 7-25 [facility] Comment on above: Performed By: #### C BCGIOVANNA, MG, BMP ####[place] [id number] [facility] ECG 12 lead ECGon 01-07-2025 ECG 12 lead ECG Normal [facility] Erythrocyte distribution wid th [Ratio] by Automated countOrdered By: Jostin Larose on 01-07-2025 Erythrocyte distribution width (RBC) [Ratio] 18.1 % High 12.0-14.8 [facility] Comment on above: Performed By: #### C BCNO, MG, BMP ####[place] [id number] [place] Erythrocytes [#/volume] in B lood by Automated countOrdered By: Jostin Larose on 01-07-2025 RBC (Bld) [#/Vol] 3.23 10*6/uL Low 3.90-5.60 [facility] Comment on above: Performed By: #### C DANIAL MG, BMP ####[address] Hematocrit [Volume Fraction] of Blood by Automated countOrdered By: Jostin Larose on 01-07-2025 Hematocrit (Bld) [Volume fraction] 26.8 % Low 38.8-50.0 [facility] Comment on above: Performed By: #### C DANIAL MG, BMP ####[address] Hemoglobin [Mass/volume] in BloodOrdered By: Jostin Larose on 01-07-2025 Hemoglobin (Bld) [Mass/Vol] 9.1 g/dL Low 13.0-17.0 [facility] Comment on above: Performed By: #### C DANIAL MG, BMP ####[address] Hemogram CBC Without Diffon 01-07-2025 Mean Corpuscular HGB Conc 34.0 g/dL Normal 32.5-35.6 [facility] Comment on above: Performed By: #### C DANIAL MG, BMP ####[address] White Blood Count 9.4 [CFU]/mL Normal 4.1-10.5 [facility] Comment on above: Performed By: #### C DANIAL MG, BMP ####[address] Leukocytes [#/volume] correc junior for nucleated erythrocytes in Blood by Automated counOrdered By: Jostin Larose on 01-07-2025 WBC corrected for nucl RBC Auto (Bld) [#/Vol] 9.4 10*3/uL 4.1-10.5 [facility] MCH [Entitic mass] by Automa junior countOrdered By: Jostin Larose on 01-07-2025 MCH (RBC) [Entitic mass] 28.2 pg Normal 27.5-35.2 [facility] Comment on above: Performed By: #### C BCGIOVANNA, MG, BMP ####[place] [id number] [place] [address] [facility] MCHC Auto (RBC) [Mass/Vol]Or dered By: Jostin Larose on 01-07-2025 MCHC (RBC) [Mass/Vol] 34.0 g/dL 32.5-35.6 [facility] MCV [Entitic volume] by Auto mated countOrdered By: Jostin Larose on 01-07-2025 MCV (RBC) [Entitic vol] 82.9 fL Low 83.5-101 F [facility] Comment on above: Performed By: #### C DANIAL, MG, BMP ####[place] [id number] [facility] Magnesiumon 01-07-2025 Magnesium [Mass/Vol] 1.7 mg/dL Low 1.9-2.7 [facility] Comment on above: Result Comment: PERF ORMED BY:[place] [address] [place], [place] [phone] MEDICAL JOSEE CASTANEDA M.D. Performed By: #### C MG DANIAL, BMP ####[address] [address] [facility] Platelet mean volume [Entiti c volume] in Blood by Automated countOrdered By: Jostin Larose on 01-07-2025 Platelet mean volume (Bld) [Entitic vol] 7.8 fL Normal 6.6-10.1 [facility] Comment on above: Result Comment: PERF ORMED BY:[place] [address] [place] [place], [place] [id number] MEDICAL JOSEE CASTANEDA M.D. Performed By: #### C BCNO, MG, BMP ####[address] Platelets [#/volume] in Bloo d by Automated countOrdered By: Jostin Larose on 01-07-2025 Platelets (Bld) [#/Vol] 265 10*3/uL Normal 150-450 [facility] Comment on above: Performed By: #### C BCNO, MG, BMP ####[address] Basic Metabolic Panelon 12-14 Anion gap [Moles/Vol] 10.2 mmol/L Normal 6.0-15.0 [facility] Comment on above: Performed By: #### B MP ####[address] Calcium [Mass/Vol] 8.5 mg/dL Low 8.6-10.3 [facility] Comment on above: Performed By: #### B MP ####[address] Chloride [Moles/Vol] 106 mmol/L Normal 98-107 [facility] Comment on above: Performed By: #### B MP ####[address] CO2 [Moles/Vol] 24.8 mmol/L Normal 21.0-31.0 [facility] Comment on above: Performed By: #### B MP ####[address] Creatinine [Mass/Vol] 1.07 mg/dL Normal 0.70-1.30 [facility] Comment on above: Performed By: #### B MP ####[address] Creatinine Clr Calc Pharmacy 55.33 Normal [facility] Comment on above: Result Comment: PERF ORMED BY:[address] [place], [place] [phone] MEDICAL JOSEE CASTANEDA M.D. Performed By: #### B MP ####[address] [place] [address] [facility] GFR/1.73 sq M.predicted MDRD (S/P/Bld) [Vol rate/Area] mL/min/{1.73_m2} Normal [facility] Comment on above: Performed By: #### B MP ####[place] [id number] [facility] Glucose [Mass/Vol] 134 mg/dL High 70-100 [facility] Comment on above: Result Comment: [facility] Glucose Reference Range is dependent on time and content of last meal. Glucose of more than 200 mg/dL in a nonstressed, ambulatory subject supports the diagnosis of Diabetes Mellitus. ADA recommended reference range Performed By: #### B MP ####[place] [id number] [facility] Potassium [Moles/Vol] 4.0 mmol/L Normal 3.5-5.1 [facility] Comment on above: Performed By: #### B MP ####[place] [id number] [facility] Sodium [Moles/Vol] 137 mmol/L Normal 136-145 [facility] Comment on above: Performed By: #### B MP ####[place] [id number] [facility] Urea nitrogen [Mass/Vol] 22 mg/dL Normal 7-25 [facility] Comment on above: Performed By: #### B MP ####[place] [id number] [facility] ECH echo transthoracicon ECH echo transthoracic Normal Th e [facility] Partial Thromboplastin Timeo n 01-06-2025 aPTT Coag (Bld) [Time] 63.1 s High 25.1-36.5 Th e [facility] Comment on above: Result Comment: A he matocrit value greater than 55% may lead to inaccurate results in coagulation testing. Patients having hematocrit values >55% require a special collection tube for coagulation studies. Please contact the laboratory at [phone] for redraw instructions.PERFORMED BY:[address] [place]ACK[place], [place] [phone] MEDICAL JOSEE CASTANEDA M.D. Performed By: #### P TT ####[address] [address] [facility] aPTT Coag (Bld) [Time] 63.0 s High 25.1-36.5 e [facility] Comment on above: Order Comment: List the anticoagulant: HEPARIN, UNFRACTIONATED Result Comment: A he matocrit value greater than 55% may lead to inaccurate results in coagulation testing. Patients having hematocrit values >55% require a special collection tube for coagulation studies. Please contact the laboratory at [phone] for redraw instructions.PERFORMED BY:[place] [address] [place], [place] [phone] MEDICAL JOSEE CASTANEDA M.D. Performed By: #### P TT ####[address] [address] [facility] aPTT in Platelet poor plasma by Coagulation assayOrdered By: Elsie Leonard on 01-06-2025 aPTT Coag (PPP) [Time] 63.1 s High 25.1-36.5 [facility] Comment on above: A hematocrit value g reater than 55% may lead to inaccurate results in coagulation testing. Patients having hematocrit values >55% require a special collection tube for coagulation studies. Please contact the laboratory at [phone] for redraw instructions. Basic Metabolic Panelon 12-14 Anion gap [Moles/Vol] 13.5 mmol/L Normal 6.0-15.0 e [facility] Comment on above: Performed By: #### B MP, CBC ####[address] [address] [place] Calcium [Mass/Vol] 8.7 mg/dL Normal 8.6-10.3 [facility] Comment on above: Performed By: #### B MP, CBC ####[address] [address] [facility] Chloride [Moles/Vol] 104 mmol/L Normal 98-107 [facility] Comment on above: Performed By: #### B MP, CBC ####[address] [address] [place] CO2 [Moles/Vol] 23.3 mmol/L Normal 21.0-31.0 [facility] Comment on above: Performed By: #### B MP, CBC ####[address] [address] [facility] Creatinine [Mass/Vol] 0.86 mg/dL Normal 0.70-1.30 [facility] Comment on above: Performed By: #### B MP, CBC ####[address] [address] [place] Creatinine Clr Calc Pharmacy 68.85 Normal [facility] Comment on above: Result Comment: PERF ORMED BY:[address] [place]OMMargeNiecyR[place], [place] [phone] MEDICAL JOSEE CASTANEDA M.D. Performed By: #### B MP, CBC ####[address] [address] [facility] GFR/1.73 sq M.predicted MDRD (S/P/Bld) [Vol rate/Area] mL/min/{1.73_m2} Normal [facility] Comment on above: Performed By: #### B MP, CBC ####[address] [address] [facility] Glucose [Mass/Vol] 165 mg/dL High 70-100 [facility] Comment on above: Result Comment: [place] Glucose Reference Range is dependent on time and content of last meal. Glucose of more than 200 mg/dL in a nonstressed, ambulatory subject supports the diagnosis of Diabetes Mellitus. ADA recommended reference range Performed By: #### B MP, CBC ####[address] [address] [facility] Potassium [Moles/Vol] 3.8 mmol/L Normal 3.5-5.1 [facility] Comment on above: Performed By: #### B MP, CBC ####[address] [address] [place] Sodium [Moles/Vol] 137 mmol/L Normal 136-145 [facility] Comment on above: Performed By: #### B MP, CBC ####[place] [id number] [facility] Urea nitrogen [Mass/Vol] 11 mg/dL Normal 7-25 [facility] Comment on above: Performed By: #### B MP, CBC ####[address] Basophils [#/volume] in Bloo d by Automated countOrdered By: Elsie Leonard on 01-05-2025 Basophils (Bld) [#/Vol] 0.0 10*3/uL Normal 0.0-0.2 [facility] Comment on above: Result Comment: PERF ORMED BY:[address] [place], [place] [phone] MEDICAL DIRECTORREGGIE CASTANEDA M.D. Performed By: #### B MP, CBC ####[place] [id number] [facility] Basophils/100 leukocytes in Blood by Automated countOrdered By: Elsie Leonard on 01-05-2025 Basophils/100 WBC (Bld) 0.1 % Normal . [facility] Comment on above: Performed By: #### B MP, CBC ####[place] [id number] [facility] CT angio chest PE protocolon 01-05-2025 CT angio chest PE protocol Normal [facility] Complete Blood Count Auto Di ffon 01-05-2025 Erythrocyte distribution width (RBC) [Ratio] 17.5 % High 12.0-14.8 [facility] Comment on above: Performed By: #### B MP, CBC ####[place] [id number] [facility] Hematocrit (Bld) [Volume fraction] 29.8 % Low 38.8-50.0 [facility] Comment on above: Performed By: #### B MP, CBC ####[place] [address] [facility] Hemoglobin (Bld) [Mass/Vol] 9.9 g/dL Low 13.0-17.0 [facility] Comment on above: Performed By: #### B MP, CBC ####[address] MCH (RBC) [Entitic mass] 28.0 pg Normal 27.5-35.2 [facility] Comment on above: Performed By: #### B MP, CBC ####[address] MCV (RBC) [Entitic vol] 84.1 fL Normal 83.5-101 T he [facility] Comment on above: Performed By: #### B MP, CBC ####[address] Mean Corpuscular HGB Conc 33.3 g/dL Normal 32.5-35.6 [facility] Comment on above: Performed By: #### B MP, CBC ####[address] NRBC% 0.0 /100{WBC} Normal 0-0.5 [facility] Comment on above: Performed By: #### B MP, CBC ####[address] Platelet mean volume (Bld) [Entitic vol] 7.7 fL Normal 6.6-10.1 [facility] Comment on above: Performed By: #### B MP, CBC ####[address] Platelets (Bld) [#/Vol] 274 10*3/uL Normal 150-450 [facility] Comment on above: Performed By: #### B MP, CBC ####[address] RBC (Bld) [#/Vol] 3.54 10*6/uL Low 3.90-5.60 [facility] Comment on above: Performed By: #### B MP, CBC ####[address] White Blood Count 8.6 [CFU]/mL Normal 4.1-10.5 [facility] Comment on above: Performed By: #### B MP, CBC ####[place] [address] [place] Eosinophils [#/volume] in Bl ood by Automated countOrdered By: Elsie Horacio on 01-05-2025 Eosinophils (Bld) [#/Vol] 0.0 10*3/uL Normal 0.0-0.45 [facility] Comment on above: Performed By: #### B MP, CBC ####[place] [address] [place] Eosinophils/100 leukocytes i n Blood by Automated countOrdered By: Elsie Dayaiene on 01-05-2025 Eosinophils/100 WBC (Bld) 0.1 % Normal . [facility] Comment on above: Performed By: #### B MP, CBC ####[address] Leukocytes [#/volume] in Blo od by Automated countOrdered By: Elsie Horacio on 01-05-2025 WBC (Bld) [#/Vol] 8.6 10*3/uL Normal 4.1-10.5 [facility] Comment on above: Performed By: #### B MP, CBC ####[place] [address] [place] Lymphocytes [#/volume] in Bl ood by Automated countOrdered By: Elsie Kaelyne on 01-05-2025 Lymphocytes (Bld) [#/Vol] 0.4 10*3/uL Low 1.00-4.8 [facility] Comment on above: Performed By: #### B MP, CBC ####[place] [address] [place] Lymphocytes/100 leukocytes i n Blood by Automated countOrdered By: Elsie Horacio on 01-05-2025 Lymphocytes/100 WBC (Bld) 5.1 % Normal . [facility] Comment on above: Performed By: #### B MP, CBC ####[place] [address] [facility] Monocytes [#/volume] in Bloo d by Automated countOrdered By: Elsie Leonard on 01-05-2025 Monocytes (Bld) [#/Vol] 0.1 10*3/uL Normal 0.0-0.8 [facility] Comment on above: Performed By: #### B MP, CBC ####[place] [address] [facility] Monocytes/100 leukocytes in Blood by Automated countOrdered By: Elsie Leonard on 01-05-2025 Monocytes/100 WBC (Bld) 1.3 % Normal . [facility] Comment on above: Performed By: #### B MP, CBC ####[address] Neutrophils [#/volume] in Bl ood by Automated countOrdered By: Elsie Leonard on 01-05-2025 Neutrophils (Bld) [#/Vol] 8.1 10*3/uL High 1.8-7.7 [facility] Comment on above: Performed By: #### B MP, CBC ####[place] [address] [facility] Neutrophils/100 leukocytes i n Blood by Automated countOrdered By: Elsie Leonard on 01-05-2025 Neutrophils/100 WBC (Bld) 93.4 % Normal . [facility] Comment on above: Performed By: #### B MP, CBC ####[place] [address] [facility] Nucleated erythrocytes [Pres ence] in Blood by Automated countOrdered By: Elsie Leonard on 01-05-2025 Nucleated RBC Auto Ql (Bld) 0.0 /100{WBC} 0-0.5 [facility] Partial Thromboplastin Timeo n 01-05-2025 aPTT Coag (Bld) [Time] 50.1 s High 25.1-36.5 Th e [facility] Comment on above: Result Comment: A he matocrit value greater than 55% may lead to inaccurate results in coagulation testing. Patients having hematocrit values >55% require a special collection tube for coagulation studies. Please contact the laboratory at [phone] for redraw instructions.PERFORMED BY:[place] [address] [address] [place] [place], [place] [phone] MEDICAL JOSEE CASTANEDA M.D. Performed By: #### P TT ####[address] [address] [facility] aPTT Coag (Bld) [Time] 54.6 s High 25.1-36.5 Th e [facility] Comment on above: Result Comment: A he matocrit value greater than 55% may lead to inaccurate results in coagulation testing. Patients having hematocrit values >55% require a special collection tube for coagulation studies. Please contact the laboratory at [phone] for redraw instructions.PERFORMED BY:[place] [address] [address] [place] [place], [place] [phone] MEDICAL JOSEE CASTANEDA M.D. Performed By: #### P TT ####[address] [address] [facility] aPTT Coag (Bld) [Time] 40.4 s High 25.1-36.5 Th e [facility] Comment on above: Result Comment: A he matocrit value greater than 55% may lead to inaccurate results in coagulation testing. Patients having hematocrit values >55% require a special collection tube for coagulation studies. Please contact the laboratory at [phone] for redraw instructions.PERFORMED BY:[place] [address] [address] [place], [place] [phone] MEDICAL JOSEE CASTANEDA M.D. Performed By: #### P TT ####[address] [address] [facility] Troponin I High Sensitivityo n 01-05-2025 Troponin I High Sensitivity 398 Off scale high 0-20 [facility] Comment on above: Result Comment: Crit ical Result : Called to and read back by: TRAVON GUMZAN at: 01/05/2025 12:36:23 by:DIANE The Troponin units of report have been changed to meet the Chest Pain Accreditation requirement, element EC5.M1l2. Troponin units are changed from pg/ml to ng/L. Also, the decimal is removed and results are in whole numbers.PERFORMED BY:[address] [place], [place] [phone] MEDICAL JOSEE CASTANEDA M.D. Performed By: #### H S TROP ####[address] [address] [facility] Troponin I High Sensitivity 374 Off scale high 0-20 [facility] Comment on above: Result Comment: Crit ical Result : Called to and read back by: TRAVON GUZMAN at: 01/05/2025 08:10:30 by:DIANE The Troponin units of report have been changed to meet the Chest Pain Accreditation requirement, element EC5.M1l2. Troponin units are changed from pg/ml to ng/L. Also, the decimal is removed and results are in whole numbers.PERFORMED BY:[address]geCR[place], [place] [phone] MEDICAL JOSEE CASTANEDA M.D. Performed By: #### H S TROP ####[address] [address] [facility] Troponin I High Sensitivity 288 Off scale high 0-20 [facility] Comment on above: Result Comment: Crit ical Result : Called to and read back by: AMY DEGROOT at: 01/05/2025 04:21:22 by:[id number] The Troponin units of report have been changed to meet the Chest Pain Accreditation requirement, element EC5.M1l2. Troponin units are changed from pg/ml to ng/L. Also, the decimal is removed and results are in whole numbers.PERFORMED BY:[address] [place], [place] [phone] MEDICAL JOSEE CASTANEDA M.D. Performed By: #### H S TROP ####[address] [address] [facility] Troponin I.cardiac [Mass/vol ume] in Serum or Plasma by Detection limit <= 0.01 ng/mLOrdered By: Elsie Leonard on 01-05-2025 Troponin I.cardiac DL <= 0.01 ng/mL [Mass/Vol] 398 ng/L Critically high 0-20 [facility] Comment on above: Critical Result : Ca lled to and read back by: TRAVON GUZMAN at: 01/05/2025 12:36:23 by:DIANEThe Troponin units of report have been changed to meet the Chest Pain Accreditation requirement, element EC5.M1l2. Troponin units are changed from pg/ml to ng/L. Also, the decimal is removed and results are in whole numbers. X-ray reportOrdered By: Juliocesar Varela on 01-05-2025 Study report [facility] Main [address] [address] XRay Report Signed Patient: Mary Mcadams MR#: [id number] : 1955 Acct:[id number] Age/Sex: 69 / M ADM Date: 5 Loc: Room: [address] [place] [address] Type: ADM IN Attending Dr: Altaf Jones MD Copies to: MD Cee Carballo DO~ Ordering Provider: Cee Proctor DO Date of Service: 01/04/25 XR/XR chest 1V portable: DYSPNEA XR chest 1V portable 01/04/2025 10:51 PM SIGNS AND SYMPTOMS: ^DYSPNEA PROTOCOL: Frontal radiograph of the chest COMPARISON: 11/10/2024 FINDINGS: The trachea is midline. The heart and mediastinal structures are within normal limits. There is chronic pleural thickening laterally in the upper chest bilaterally. Multiple calcified mediastinal and hilar lymph nodes are noted. There is diffuse interstitial prominence similar to the prior exam. Bibasilar airspace opacities have developed. These are new compared to the prior exam. The bony thorax is intact. XR/XR chest 1V portable IMPRESSION: New bibasilar airspace opacities. Chronic interstitial changes are noted with pleural thickening similar to the prior exam. Similar calcified mediastinal and hilar lymph nodes are present. Impression dictated by: Juliocesar Varela M.D. 01/05/2025 10:46 AM Dictation Location: [place] [address] Transcribed By: [facility] 01/05/25 1046 Dictated By: Juliocesar Varela II, MD 01/05/25 1044 Signed By: 01/05/25 1046 [facility] Work Phone: XR chest 1V portableon 01-05 XR chest 1V portable Normal [facility] Alanine aminotransferase [En zymatic activity/volume] in Serum or PlasmaOrdered By: Cee Proctor on 01-04-2025 ALT [Catalytic activity/Vol] 9 U/L Normal 7-52 [facility] Comment on above: Performed By: #### C BC, CK, HS TROP, BNP, CMP ####[facility] [id number] [place] [address] [place] Albumin [Mass/volume] in Ser um or Plasma by Bromocresol green (BCG) dye binding methoOrdered By: Cee Proctor on 01-04-2025 Albumin BCG dye [Mass/Vol] 3.8 g/dL 3.5-5.7 [facility] Alkaline phosphatase [Enzyma tic activity/volume] in Serum or PlasmaOrdered By: Cee Proctor on 01-04-2025 ALP [Catalytic activity/Vol] 140 U/L High 34-104 [facility] Comment on above: Performed By: #### C BC, CK, HS TROP, BNP, CMP ####[facility] [id number] [place] [address] [facility] Anti-Xa UF Heparinon 025 Anti-Xa UF Heparin 1.30 Off scale high 0.30-0.70 Th e [facility] Comment on above: Result Comment: Crit ical value result called at 0136 on 01/05/25 Use the aPTT protocol when triglycerides are > 800 mg/dL, total bilirubin is > 20 mg/dL and/or patient has received a DOAC, Fondaparinux or LMWH within 72 hours AND baseline anti-Xa level is > 0.7 units/mLPERFORMED BY:[place] [address] [address] [place], [place] [phone] MEDICAL DIRECTORREGGIE CASTANEDA M.D. Performed By: #### P T, [facility] ####[place] [address] [address] health [place] [address] [facility] Arterial Blood Gason 025 ABG Base Excess -2.4 mmol/L Normal -3.0-3.0 [facility] Comment on above: Performed By: #### A BG ####Point of Care testing, ABG Frac Inspired O2 32 % Normal [facility] Comment on above: Performed By: #### A BG ####Point of Care testing, ABG Oxygen Content 6.8 mmol/L Normal 6.6-9.7 [facility] Comment on above: Performed By: #### A BG ####Point of Care testing, ABG Oxygen Saturation 96.7 % Normal 95.0-100.0 [facility] Comment on above: Performed By: #### A BG ####Point of Care testing, ABG PCO2 42.2 mm[Hg] Normal 35.0-45.0 [facility] Comment on above: Performed By: #### A BG ####Point of Care testing, ABG PH 7.35 Normal 7.35-7.45 [facility] Comment on above: Performed By: #### A BG ####Point of Care testing, ABG PO2 91.5 mm[Hg] Normal 80.0-100.0 [facility] Comment on above: Performed By: #### A BG ####Point of Care testing, Respiratory Critical Normal [facility] Comment on above: Result Comment: Crit ical Value called on: 01/04/2025 at 22:22PERFORMED BY:[place] [address] [address] [place] [place], [place] [phone] MEDICAL JOSEE CASTANEDA M.D. Performed By: #### A BG ####Point of Care testing, VBG Draw Site Right Radial Normal [facility] Comment on above: Performed By: #### A BG ####Point of Care testing, Arterial Blood GasOrdered By : Cee Proctor on 01-04-2025 CO2 [Moles/Vol] 24.3 mmol/L Normal 23.0-27.0 [facility] Comment on above: Performed By: #### A BG ####Point of Care testing, HCO3 (Bld) [Moles/Vol] 23.0 mmol/L Normal 23.0-29.0 [facility] Comment on above: Performed By: #### A BG ####Point of Care testing, Aspartate aminotransferase [ Enzymatic activity/volume] in Serum or PlasmaOrdered By: Cee Proctor on 01-04-2025 AST [Catalytic activity/Vol] 21 U/L Normal 13-39 [facility] Comment on above: Performed By: #### C BC, CK, HS TROP, BNP, CMP ####[address] BNP ser/plasOrdered By: Jessica Proctor on 01-04-2025 Natriuretic peptide B (Bld) [Mass/Vol] 268.0 pg/mL High 5-100 [facility] Comment on above: Result Comment: PERF ORMED BY:[address] [place], [place] [phone] MEDICAL JOSEE CASTANEDA M.D. Performed By: #### C BC, CK, HS TROP, BNP, CMP ####[address] Basophils [#/volume] in Bloo d by Automated countOrdered By: Cee Proctor on 01-04-2025 Basophils (Bld) [#/Vol] 0.1 10*3/uL Normal 0.0-0.2 [facility] Comment on above: Result Comment: PERF ORMED BY:[address] [place], [place] [phone] MEDICAL JOSEE CASTANEDA M.D. Performed By: #### C BC, CK, HS TROP, BNP, CMP ####[address] Basophils/100 leukocytes in Blood by Automated countOrdered By: Nidgreer Austina on 01-04-2025 Basophils/100 WBC (Bld) 0.6 % Normal . [facility] Comment on above: Performed By: #### C BC, CK, HS TROP, BNP, CMP ####[address] Bilirubin.total [Mass/volume ] in Serum or PlasmaOrdered By: Nidal Choujaa on 01-04-2025 Bilirubin [Mass/Vol] 0.4 mg/dL Normal 0.3-1.0 [facility] Comment on above: Performed By: #### C BC, CK, HS TROP, BNP, CMP ####[address] Calcium [Mass/volume] in Ser um or PlasmaOrdered By: Cee Chogael on 01-04-2025 Calcium [Mass/Vol] 8.8 mg/dL Normal 8.6-10.3 [facility] Comment on above: Performed By: #### C BC, CK, HS TROP, BNP, CMP ####[address] Carbon dioxide, total [Moles /volume] in Serum or PlasmaOrdered By: Cee Chorubinaa on 01-04-2025 CO2 [Moles/Vol] 25.3 mmol/L Normal 21.0-31.0 [facility] Comment on above: Performed By: #### C BC, CK, HS TROP, BNP, CMP ####[place] [id number] [facility] Chloride [Moles/volume] in S christine or PlasmaOrdered By: Nidal Choujaa on 01-04-2025 Chloride [Moles/Vol] 104 mmol/L Normal 98-107 [facility] Comment on above: Performed By: #### C BC, CK, HS TROP, BNP, CMP ####[address] Complete Blood Count Auto Di ffon 01-04-2025 Mean Corpuscular HGB Conc 33.4 g/dL Normal 32.5-35.6 [facility] Comment on above: Performed By: #### C BC, CK, HS TROP, BNP, CMP ####[address] Monocytes/100 WBC (Bld) 17.47 % Normal 0.00-20.00 T [facility] Comment on above: Performed By: #### C BC, CK, HS TROP, BNP, CMP ####[address] NRBC% 0.1 /100{WBC} Normal 0-0.5 [facility] Comment on above: Performed By: #### C BC, CK, HS TROP, BNP, CMP ####[address] White Blood Count 10.2 [CFU]/mL Normal 4.1-10.5 [facility] Comment on above: Performed By: #### C BC, CK, HS TROP, BNP, CMP ####[address] Comprehensive Metabolic Pane juliana 01-04-2025 Albumin [Mass/Vol] 3.8 g/dL Normal 3.5-5.7 [facility] Comment on above: Performed By: #### C BC, CK, HS TROP, BNP, CMP ####[address] Creatinine Clr Calc Pharmacy 69.60 Normal [facility] Comment on above: Result Comment: PERF ORMED BY:[address] [place], [place] [phone] MEDICAL DIRECTORREGGIE CASTANEDA M.D. Performed By: #### C BC, CK, HS TROP, BNP, CMP ####[address] GFR/1.73 sq M.predicted MDRD (S/P/Bld) [Vol rate/Area] mL/min/{1.73_m2} Normal [facility] Comment on above: Performed By: #### C BC, CK, HS TROP, BNP, CMP ####[address] Creatine kinase [Enzymatic a ctivity/volume] in Serum or PlasmaOrdered By: Cee Proctor on 01-04-2025 CK [Catalytic activity/Vol] 30 U/L Normal 30-223 [facility] Comment on above: Performed By: #### C BC, CK, HS TROP, BNP, CMP ####[address] Creatinine [Mass/volume] in Serum or PlasmaOrdered By: Cee Proctor on 01-04-2025 Creatinine [Mass/Vol] 0.88 mg/dL Normal 0.70-1.30 [facility] Comment on above: Performed By: #### C BC, CK, HS TROP, BNP, CMP ####[address] ECG 12 lead ECGon 01-04-2025 ECG 12 lead ECG Normal [facility] Eosinophils [#/volume] in Bl ood by Automated countOrdered By: Cee Proctor on 01-04-2025 Eosinophils (Bld) [#/Vol] 0.3 10*3/uL Normal 0.0-0.45 [facility] Comment on above: Performed By: #### C BC, CK, HS TROP, BNP, CMP ####[address] Eosinophils/100 leukocytes i n Blood by Automated countOrdered By: Cee Proctor on 01-04-2025 Eosinophils/100 WBC (Bld) 3.2 % Normal . [facility] Comment on above: Performed By: #### C BC, CK, HS TROP, BNP, CMP ####[address] Erythrocyte distribution wid th [Ratio] by Automated countOrdered By: Cee Proctor on 01-04-2025 Erythrocyte distribution width (RBC) [Ratio] 17.5 % High 12.0-14.8 [facility] Comment on above: Performed By: #### C BC, CK, HS TROP, BNP, CMP ####[facility] [id number] Erythrocytes [#/volume] in B lood by Automated countOrdered By: Cee Proctor on 01-04-2025 RBC (Bld) [#/Vol] 3.80 10*6/uL Low 3.90-5.60 [facility] Comment on above: Performed By: #### C BC, CK, HS TROP, BNP, CMP ####[facility] Glomerular filtration rate [ Volume Rate/Area] in Serum, Plasma or Blood by CreatinineOrdered By: Cee Proctor on 01-04-2025 Glomerular filtration rate [Volume Rate/Area] in Serum, Plasma or Blood by Creatinine > 60.0 mL/Min [facility] Glucose [Mass/volume] in Ser um or PlasmaOrdered By: Cee Proctor on 01-04-2025 Glucose [Mass/Vol] 155 mg/dL High 70-100 [facility] Comment on above: ADA recommended refe rence rangeRandom Glucose Reference Range is dependent on time and content of last meal. Glucose of more than 200 mg/dL in a nonstressed, ambulatory subject supports the diagnosis of Diabetes Mellitus. Result Comment: [place] om Glucose Reference Range is dependent on time and content of last meal. Glucose of more than 200 mg/dL in a nonstressed, ambulatory subject supports the diagnosis of Diabetes Mellitus. ADA recommended reference range Performed By: #### C BC, CK, HS TROP, BNP, CMP ####[facility] [id number] [address] Hematocrit [Volume Fraction] of Blood by Automated countOrdered By: Cee Proctor on 01-04-2025 Hematocrit (Bld) [Volume fraction] 31.7 % Low 38.8-50.0 [facility] Comment on above: Performed By: #### C BC, CK, HS TROP, BNP, CMP ####[facility] [id number] Hemoglobin [Mass/volume] in BloodOrdered By: Cee Proctor on 01-04-2025 Hemoglobin (Bld) [Mass/Vol] 10.6 g/dL Low 13.0-17.0 [facility] Comment on above: Performed By: #### C BC, CK, HS TROP, BNP, CMP ####[facility] Heparin anti-Xa unfractionat edOrdered By: Cee Proctor on 01-04-2025 Heparin unfractionated Chromogenic method Qn (PPP) 1.30 [IU]/mL Critically high 0.30-0.70 [facility] Comment on above: Critical valueresult calledat 0136 on 01/05/25 Use the aPTT protocol when triglycerides are > 800 mg/dL,total bilirubin is > 20 mg/dL and/or patient has received aDOAC, Fondaparinux or LMWH within 72 hours AND baselineanti-Xa level is > 0.7 units/mL INR in Platelet poor plasma by Coagulation assayOrdered By: Cee Proctor on 01-04-2025 INR Coag (PPP) [Relative time] 1.7 {INR} Normal [facility] Comment on above: INR Therapeutic Rang [...] 3 - 4.5 Performed By: #### P T, UFHEP ####[facility] Leukocytes [#/volume] correc junior for nucleated erythrocytes in Blood by Automated counOrdered By: Cee Proctor on 01-04-2025 WBC corrected for nucl RBC Auto (Bld) [#/Vol] 10.2 10*3/uL 4.1-10.5 [facility] Leukocytes [#/volume] in Blo od by Automated countOrdered By: Cee Proctor on 01-04-2025 WBC (Bld) [#/Vol] 10.2 10*3/uL Normal 4.1-10.5 [facility] Comment on above: Performed By: #### C BC, CK, HS TROP, BNP, CMP ####[address] Lymphocytes [#/volume] in Bl ood by Automated countOrdered By: Cee Proctor on 01-04-2025 Lymphocytes (Bld) [#/Vol] 1.2 10*3/uL Normal 1.00-4.8 [facility] Comment on above: Performed By: #### C BC, CK, HS TROP, BNP, CMP ####[address] Lymphocytes/100 leukocytes i n Blood by Automated countOrdered By: Cee Proctor on 01-04-2025 Lymphocytes/100 WBC (Bld) 12.3 % Normal . [facility] Comment on above: Performed By: #### C BC, CK, HS TROP, BNP, CMP ####[address] MCH [Entitic mass] by Automa junior countOrdered By: Cee Proctor on 01-04-2025 MCH (RBC) [Entitic mass] 27.8 pg Normal 27.5-35.2 [facility] Comment on above: Performed By: #### C BC, CK, HS TROP, BNP, CMP ####[address] MCHC Auto (RBC) [Mass/Vol]Or dered By: Cee Proctor on 01-04-2025 MCHC (RBC) [Mass/Vol] 33.4 g/dL 32.5-35.6 [facility] MCV [Entitic volume] by Auto mated countOrdered By: Cee Proctor on 01-04-2025 MCV (RBC) [Entitic vol] 83.3 fL Low 83.5-101 [facility] Comment on above: Performed By: #### C BC, CK, HS TROP, BNP, CMP ####[address] Monocyte distribution width [Entitic volume] in Blood by AutomatedOrdered By: Cee Proctor on 01-04-2025 Monocyte distribution width Auto (Bld) [Entitic vol] 17.47 % 0.00-20.00 [facility] Monocytes [#/volume] in Bloo d by Automated countOrdered By: Cee Proctor on 01-04-2025 Monocytes (Bld) [#/Vol] 0.6 10*3/uL Normal 0.0-0.8 [facility] Comment on above: Performed By: #### C BC, CK, HS TROP, BNP, CMP ####[address] Monocytes/100 leukocytes in Blood by Automated countOrdered By: Cee Proctor on 01-04-2025 Monocytes/100 WBC (Bld) 6.2 % Normal . [facility] Comment on above: Performed By: #### C BC, CK, HS TROP, BNP, CMP ####[place] [address] [place] Neutrophils [#/volume] in Bl ood by Automated countOrdered By: Cee Proctor on 01-04-2025 Neutrophils (Bld) [#/Vol] 7.9 10*3/uL High 1.8-7.7 [facility] Comment on above: Performed By: #### C BC, CK, HS TROP, BNP, CMP ####[place] [address] [place] Neutrophils/100 leukocytes i n Blood by Automated countOrdered By: Cee Proctor on 01-04-2025 Neutrophils/100 WBC (Bld) 77.7 % Normal . [facility] Comment on above: Performed By: #### C BC, CK, HS TROP, BNP, CMP ####[facility] [id number] [address] No Panel InformationOrdered By: Cee Proctor on 01-04-2025 Arterial Blood Base Excess -2.4 mmol/L -3.0-3.0 [facility] Arterial Blood Oxygen Content 6.8 mmol/L 6.6-9.7 [facility] Arterial Blood Oxygen Saturation 96.7 % 95.0-100.0 [facility] Arterial Blood Partial Pressure CO2 42.2 mm[Hg] 35.0-45.0 [facility] Arterial Blood Partial Pressure O2 91.5 mm[Hg] 80.0-100.0 [facility] Arterial Blood pH 7.35 7.35-7.45 [facility] Blood Gas Critical Value See comment [facility] Comment on above: Critical Value regan d on: 01/04/2025 at 22:22 Blood Gas Sample Site Right radial F [facility] FiO2 32 % [facility] Creatinine Clearance (Chem 69.60 [facility] Nucleated erythrocytes [Pres ence] in Blood by Automated countOrdered By: Cee Proctor on 01-04-2025 Nucleated RBC Auto Ql (Bld) 0.1 /100{WBC} 0-0.5 [facility] Platelet mean volume [Entiti c volume] in Blood by Automated countOrdered By: Cee Proctor on 01-04-2025 Platelet mean volume (Bld) [Entitic vol] 7.6 fL Normal 6.6-10.1 [facility] Comment on above: Performed By: #### C BC, CK, HS TROP, BNP, CMP ####[facility] [id number] [address] Platelets [#/volume] in Bloo d by Automated countOrdered By: Cee Proctor on 01-04-2025 Platelets (Bld) [#/Vol] 281 10*3/uL Normal 150-450 [facility] Comment on above: Performed By: #### C BC, CK, HS TROP, BNP, CMP ####[place] [id number] [place] [id number] [facility] Potassium [Moles/volume] in Serum or PlasmaOrdered By: Cee Proctor on 01-04-2025 Potassium [Moles/Vol] 3.6 mmol/L Normal 3.5-5.1 [facility] Comment on above: Performed By: #### C BC, CK, HS TROP, BNP, CMP ####[place] [id number] [facility] Protein [Mass/volume] in Ser um or PlasmaOrdered By: Cee Proctor on 01-04-2025 Protein [Mass/Vol] 6.6 g/dL Normal 6.4-8.9 [facility] Comment on above: Performed By: #### C BC, CK, HS TROP, BNP, CMP ####[place] [id number] [facility] Prothrombin time (PT)Ordered By: Cee Proctor on 01-04-2025 PT Coag (PPP) [Time] 18.9 s High 9.0-12.9 [facility] Comment on above: A hematocrit value g reater than 55% may lead to inaccurate results in coagulation testing. Patients having hematocrit values >55% require a special collection tube for coagulation studies. Please contact the laboratory at [phone] for redraw instructions. Result Comment: A he matocrit value greater than 55% may lead to inaccurate results in coagulation testing. Patients having hematocrit values >55% require a special collection tube for coagulation studies. Please contact the laboratory at [phone] for redraw instructions. Performed By: #### P T, UFHEP ####[place] [id number] [facility] Serum globulin measurement b y calculation (mass/volume)Ordered By: Cee Proctor on 01-04-2025 Globulin (S) [Mass/Vol] 2.8 g/dL Normal [facility] Comment on above: Performed By: #### C BC, CK, HS TROP, BNP, CMP ####[place] [id number] [place] [id number] [facility] Serum or plasma albumin/glob ulin mass ratioOrdered By: Cee Proctor on 01-04-2025 Albumin/Globulin [Mass ratio] 1.4 {ratio} Normal [facility] Comment on above: Performed By: #### C BC, CK, HS TROP, BNP, CMP ####[address] Serum or plasma anion gap de terminationOrdered By: Cee Proctor on 01-04-2025 Anion gap [Moles/Vol] 11.3 mmol/L Normal 6.0-15.0 [facility] Comment on above: Performed By: #### C BC, CK, HS TROP, BNP, CMP ####[address] Sodium [Moles/volume] in Ser um or PlasmaOrdered By: Cee Proctor on 01-04-2025 Sodium [Moles/Vol] 137 mmol/L Normal 136-145 [facility] Comment on above: Performed By: #### C BC, CK, HS TROP, BNP, CMP ####[address] Troponin I High Sensitivityo n 01-04-2025 Troponin I High Sensitivity 135 Off scale high 0-20 [facility] Comment on above: Result Comment: Crit ical Result : Called to and read back by: VALENTIN CHAVEZ at: 01/05/2025 00:41:06 by:[id number] The Troponin units of report have been changed to meet the Chest Pain Accreditation requirement, element EC5.M1l2. Troponin units are changed from pg/ml to ng/L. Also, the decimal is removed and results are in whole numbers.PERFORMED BY:[address] [place], [place] [phone] MEDICAL DIRECTORREGGIE CASTANEDA M.D. Performed By: #### H S TROP ####[address] [address] [facility] Troponin I High Sensitivity 33 High 0-20 [facility] Comment on above: Result Comment: The Troponin units of report have been changed to meet the Chest Pain Accreditation requirement, element EC5.M1l2. Troponin units are changed from pg/ml to ng/L. Also, the decimal is removed and results are in whole numbers.PERFORMED BY:[address] [place], [place] [phone] MEDICAL JOSEE CASTANEDA M.D. Performed By: #### C BC, CK, HS TROP, BNP, CMP ####[address] [address] [facility] Troponin I.cardiac [Mass/vol ume] in Serum or Plasma by Detection limit <= 0.01 ng/mLOrdered By: Cee Proctor on 01-04-2025 Troponin I.cardiac DL <= 0.01 ng/mL [Mass/Vol] 135 ng/L Critically high 0-20 [facility] Comment on above: Critical Result : Ca lled to and read back by: VALENTIN CHAVEZ at: 01/05/2025 00:41:06 by:[id number] Troponin units of report have been changed to meet the Chest Pain Accreditation requirement, element EC5.M1l2. Troponin units are changed from pg/ml to ng/L. Also, the decimal is removed and results are in whole numbers. Urea nitrogen [Mass/volume] in Serum or PlasmaOrdered By: Cee Proctor on 01-04-2025 Urea nitrogen [Mass/Vol] 11 mg/dL Normal 12-06 [facility] Comment on above: Performed By: #### C BC, CK, HS TROP, BNP, CMP ####[address] [address] [facility] Basic Metabolic Panelon 07-0 Creatinine Clr Calc Pharmacy 65.31 Normal [facility] Comment on above: Result Comment: PERF ORMED BY:[address] [place], [place] [phone] MEDICAL JOSEE CASTANEDA M.D. Performed By: #### C MARYAM, BMP ####[address] [address] [facility] GFR/1.73 sq M.predicted MDRD (S/P/Bld) [Vol rate/Area] mL/min/{1.73_m2} Normal [facility] Comment on above: Performed By: #### C MARYAM, BMP ####[address] [address] [facility] Basophils [#/volume] in Bloo d by Automated countOrdered By: Silvano Reed on 11-12-2024 Basophils (Bld) [#/Vol] 0.0 10*3/uL Normal 0.0-0.2 [facility] Comment on above: Result Comment: PERF ORMED BY:[address] [place], [place] [phone] MEDICAL DIRECTORREGGIE CASTANEDA M.D. Performed By: #### C MARYAM, BMP ####[address] [address] [facility] Basophils/100 leukocytes in Blood by Automated countOrdered By: Silvano Reed on 11-12-2024 Basophils/100 WBC (Bld) 0.1 % Normal . [facility] Comment on above: Performed By: #### C MARYAM, BMP ####[address] [address] [facility] Calcium [Mass/volume] in Ser um or PlasmaOrdered By: Silvano Reed on 11-12-2024 Calcium [Mass/Vol] 9.1 mg/dL Normal 8.6-10.3 [facility] Comment on above: Performed By: #### C MARYAM, BMP ####[address] [address] [facility] Carbon dioxide, total [Moles /volume] in Serum or PlasmaOrdered By: Silvano Reed on 11-12-2024 CO2 [Moles/Vol] 28.1 mmol/L Normal 21.0-31.0 [facility] Comment on above: Performed By: #### C BC, BMP ####[address] Chloride [Moles/volume] in S christine or PlasmaOrdered By: Silvano Reed on 11-12-2024 Chloride [Moles/Vol] 100 mmol/L Normal 98-107 [facility] Comment on above: Performed By: #### C BC, BMP ####[address] Complete Blood Count Auto Di ffon 11-12-2024 Mean Corpuscular HGB Conc 32.7 g/dL Normal 32.5-35.6 [facility] Comment on above: Performed By: #### C BC, BMP ####[address] NRBC% 0.0 /100{WBC} Normal 0-0.5 [facility] Comment on above: Performed By: #### C BC, BMP ####[address] White Blood Count 18.4 [CFU]/mL High 4.1-10.5 [facility] Comment on above: Performed By: #### C BC, BMP ####[address] Creatinine [Mass/volume] in Serum or PlasmaOrdered By: Silvano Reed on 11-12-2024 Creatinine [Mass/Vol] 0.92 mg/dL Normal 0.70-1.30 [facility] Comment on above: Performed By: #### C BC, BMP ####[address] Eosinophils [#/volume] in Bl ood by Automated countOrdered By: Silvano Reed on 11-12-2024 Eosinophils (Bld) [#/Vol] 0.0 10*3/uL Normal 0.0-0.45 [facility] Comment on above: Performed By: #### C BC, BMP ####[address] [place] [address] [facility] Eosinophils/100 leukocytes i n Blood by Automated countOrdered By: Silvano Reed on 11-12-2024 Eosinophils/100 WBC (Bld) 0.0 % Normal . [facility] Comment on above: Performed By: #### C BC, BMP ####[place] [id number] [facility] Erythrocyte distribution wid th [Ratio] by Automated countOrdered By: Silvano Reed on 11-12-2024 Erythrocyte distribution width (RBC) [Ratio] 16.5 % High 12.0-14.8 [facility] Comment on above: Performed By: #### C MARYAM, BMP ####[address] Erythrocytes [#/volume] in B lood by Automated countOrdered By: Silvano Reed on 11-12-2024 RBC (Bld) [#/Vol] 3.34 10*6/uL Low 3.90-5.60 [facility] Comment on above: Performed By: #### C BC, BMP ####[address] Glucose [Mass/volume] in Ser um or PlasmaOrdered By: Silvano Reed on 11-12-2024 Glucose [Mass/Vol] 144 mg/dL High 70-100 [facility] Comment on above: ADA recommended refe rence rangeRandom Glucose Reference Range is dependent on time and content of last meal. Glucose of more than 200 mg/dL in a nonstressed, ambulatory subject supports the diagnosis of Diabetes Mellitus. Result Comment: [place] om Glucose Reference Range is dependent on time and content of last meal. Glucose of more than 200 mg/dL in a nonstressed, ambulatory subject supports the diagnosis of Diabetes Mellitus. ADA recommended reference range Performed By: #### C BC, BMP ####[place] [id number] [facility] Hematocrit [Volume Fraction] of Blood by Automated countOrdered By: Silvano Reed on 11-12-2024 Hematocrit (Bld) [Volume fraction] 27.0 % Low 38.8-50.0 [facility] Comment on above: Performed By: #### C MARYAM, BMP ####[place] [id number] [facility] Hemoglobin [Mass/volume] in BloodOrdered By: Silvano Reed on 11-12-2024 Hemoglobin (Bld) [Mass/Vol] 8.8 g/dL Low 13.0-17.0 [facility] Comment on above: Performed By: #### C MARYAM, BMP ####[place] [address] [facility] Leukocytes [#/volume] correc junior for nucleated erythrocytes in Blood by Automated counOrdered By: Silvano Reed on 11-12-2024 WBC corrected for nucl RBC Auto (Bld) [#/Vol] 18.4 10*3/uL High 4.1-10.5 [facility] Leukocytes [#/volume] in Blo od by Automated countOrdered By: Silvano Reed on 11-12-2024 WBC (Bld) [#/Vol] 18.4 10*3/uL High 4.1-10.5 [facility] Comment on above: Performed By: #### C MARYAM, BMP ####[place] [id number] [facility] Lymphocytes [#/volume] in Bl ood by Automated countOrdered By: Silvano Reed on 11-12-2024 Lymphocytes (Bld) [#/Vol] 0.7 10*3/uL Low 1.00-4.8 [facility] Comment on above: Performed By: #### C MARYAM, BMP ####[place] [address] [facility] Lymphocytes/100 leukocytes i n Blood by Automated countOrdered By: Silvano Reed on 11-12-2024 Lymphocytes/100 WBC (Bld) 4.1 % Normal . [facility] Comment on above: Performed By: #### C MARYAM, BMP ####[address] [place] [address] [facility] MCH [Entitic mass] by Automa junior countOrdered By: Silvano Reed on 11-12-2024 MCH (RBC) [Entitic mass] 26.5 pg Low 27.5-35.2 [facility] Comment on above: Performed By: #### C MARYAM, BMP ####[place] [id number] [facility] MCHC Auto (RBC) [Mass/Vol]Or dered By: Silvano Reed on 11-12-2024 MCHC (RBC) [Mass/Vol] 32.7 g/dL 32.5-35.6 [facility] MCV [Entitic volume] by Auto mated countOrdered By: Silvano Reed on 11-12-2024 MCV (RBC) [Entitic vol] 80.9 fL Low 83.5-101 F [facility] Comment on above: Performed By: #### C MARYAM, BMP ####[place] [id number] [facility] Monocytes [#/volume] in Bloo d by Automated countOrdered By: Silvano Reed on 11-12-2024 Monocytes (Bld) [#/Vol] 0.5 10*3/uL Normal 0.0-0.8 [facility] Comment on above: Performed By: #### C MARYAM, BMP ####[place] [address] [facility] Monocytes/100 leukocytes in Blood by Automated countOrdered By: Silvano Reed on 11-12-2024 Monocytes/100 WBC (Bld) 2.8 % Normal . [facility] Comment on above: Performed By: #### C MARYAM, BMP ####[place] [id number] [facility] Neutrophils [#/volume] in Bl ood by Automated countOrdered By: Silvano Reed on 11-12-2024 Neutrophils (Bld) [#/Vol] 17.1 10*3/uL High 1.8-7.7 [facility] Comment on above: Performed By: #### C MARYAM, BMP ####[place] [id number] [place] [id number] [facility] Neutrophils/100 leukocytes i n Blood by Automated countOrdered By: Silvano Reed on 11-12-2024 Neutrophils/100 WBC (Bld) 93.0 % Normal . [facility] Comment on above: Performed By: #### C MARYAM, BMP ####[facility] [id number] [place] [id number] [facility] No Panel InformationOrdered By: Silvano Reed on 11-12-2024 Estimated GFR (CKD-EPI) > 60.0 mL/Min [facility] Creatinine Clearance (Chem 65.31 [facility] Nucleated erythrocytes [Pres ence] in Blood by Automated countOrdered By: Silvano Reed on 11-12-2024 Nucleated RBC Auto Ql (Bld) 0.0 /100{WBC} 0-0.5 [facility] Platelet mean volume [Entiti c volume] in Blood by Automated countOrdered By: Silvano Reed on 11-12-2024 Platelet mean volume (Bld) [Entitic vol] 7.9 fL Normal 6.6-10.1 [facility] Comment on above: Performed By: #### C MARYAM, BMP ####[place] [id number] [place] [id number] [facility] Platelets [#/volume] in Bloo d by Automated countOrdered By: Silvano Reed on 11-12-2024 Platelets (Bld) [#/Vol] 273 10*3/uL Normal 150-450 [facility] Comment on above: Performed By: #### C MARYAM, BMP ####[address] Potassium [Moles/volume] in Serum or PlasmaOrdered By: Silvano Reed on 11-12-2024 Potassium [Moles/Vol] 4.1 mmol/L Normal 3.5-5.1 [facility] Comment on above: Performed By: #### C MARYAM, BMP ####[address] [address] [facility] Serum or plasma anion gap de terminationOrdered By: Silvano Reed on 11-12-2024 Anion gap [Moles/Vol] 11.0 mmol/L Normal 6.0-15.0 [facility] Comment on above: Performed By: #### C BC, BMP ####[place] [id number] [facility] Sodium [Moles/volume] in Ser um or PlasmaOrdered By: Silvano Reed on 11-12-2024 Sodium [Moles/Vol] 135 mmol/L Low 136-145 [facility] Comment on above: Performed By: #### C BC, BMP ####[place] [id number] [facility] Urea nitrogen [Mass/volume] in Serum or PlasmaOrdered By: Silvano Reed on 11-12-2024 Urea nitrogen [Mass/Vol] 22 mg/dL Normal 7-25 [facility] Comment on above: Performed By: #### C BC, BMP ####[place] [id number] [facility] Appearance of UrineOrdered B y: Silvano Reed on 11-11-2024 Appearance (U) Clear Normal Clear [facility] Comment on above: Order Comment: Name Collection Type:: Straight Catheter Performed By: #### A DDONUAPLUS ####[place] [id number] [facility] Bacteria [Presence] in Urine by AutomatedOrdered By: Silvano Reed on 11-11-2024 Bacteria Auto Ql (U) Rare [HPF] None Seen [facility] Bilirubin Test strip Ql (U)O rdered By: Silvano Reed on 11-11-2024 Bilirubin Ql (U) Negative Negative [facility] Color of Urine by AutoOrdere d By: Silvano Reed on 11-11-2024 Color (U) Light-yellow Normal Yellow [facility] Comment on above: Order Comment: Name Collection Type:: Straight Catheter Performed By: #### A DDONUAPLUS ####[address] [address] [facility] Dipstick and Microscopicon 0 11-11-2024 Bacteria,Urine Rare Normal None Seen [facility] Comment on above: Order Comment: Name Collection Type:: Straight Catheter Performed By: #### A DDONUAPLUS ####[address] [address] [facility] Bilirubin,Urine Negative Normal Negative [facility] Comment on above: Order Comment: Name Collection Type:: Straight Catheter Performed By: #### A DDONUAPLUS ####[address] [address] [facility] Glucose Ql (U) 50 mg/dL Normal Normal [facility] Comment on above: Order Comment: Name Collection Type:: Straight Catheter Performed By: #### A DDONUAPLUS ####[address] [address] [facility] Hyaline Casts,Urine 9-19 Normal 0-8 [facility] Comment on above: Order Comment: Name Collection Type:: Straight Catheter Performed By: #### A DDONUAPLUS ####[address] [address] [facility] Mucus,Urine Rare Normal [facility] Comment on above: Order Comment: Name Collection Type:: Straight Catheter Result Comment: PERF ORMED BY:[place] [address] [address] ZULUAGAJIM [place], [place] [phone] MEDICAL JOSEE CASTANEDA M.D. Performed By: #### A DDONUAPLUS ####[address] [address] [place] Nitrite,Urine Positive Normal Negative [facility] Comment on above: Order Comment: Name Collection Type:: Straight Catheter Performed By: #### A DDONUAPLUS ####[address] [address] [facility] Occult Blood,Urine Trace Normal Negative [facility] Comment on above: Order Comment: Name Collection Type:: Straight Catheter Result Comment: PERF ORMED BY:[address] [place], [place] [phone] MEDICAL DIRECTORREGGIE CASTANEDA M.D. Performed By: #### A DDONUAPLUS ####[address] [address] [facility] Protein,Urine Negative Normal Negative [facility] Comment on above: Order Comment: Name Collection Type:: Straight Catheter Performed By: #### A DDONUAPLUS ####[address] [address] [facility] RBC,Urine 1-2 Normal 0-4 [facility] Comment on above: Order Comment: Name Collection Type:: Straight Catheter Performed By: #### A DDONUAPLUS ####[address] [address] [facility] Specificy Mcintosh,Urine 1.012 Normal 1.00 1-1.03 0 [facility] Comment on above: Order Comment: Name Collection Type:: Straight Catheter Performed By: #### A DDONUAPLUS ####[address] [address] [facility] Urobilinogen,Urine Normal Normal Normal [facility] Comment on above: Order Comment: Name Collection Type:: Straight Catheter Performed By: #### A DDONUAPLUS ####[address] [address] [facility] WBC,Urine 20-49 Normal 0-4 [facility] Comment on above: Order Comment: Name Collection Type:: Straight Catheter Performed By: #### A DDONUAPLUS ####[address] [address] [facility] Epithelial cells.squamous [# /area] in Urine sediment by Automated countOrdered By: Silvano Reed on 11-11-2024 Epithelial cells.squamous Auto (Urine sed) [#/Area] N/A [facility] Erythrocytes [#/area] in Uri ne sediment by Automated countOrdered By: Silvano Reed on 11-11-2024 RBC Auto (Urine sed) [#/Area] 1-2 [HPF] 0-4 [facility] Glucose [Mass/volume] in Uri ne by Test stripOrdered By: Silvano Reed on 11-11-2024 Glucose Test strip (U) [Mass/Vol] 50 mg/dL High Normal [facility] Hemoglobin Test strip Ql (U) Ordered By: Silvano Reed on 11-11-2024 Hemoglobin Ql (U) Trace High Negative [facility] Hyaline casts [#/area] in Ur ine sediment by Automated countOrdered By: Silvano Reed on 11-11-2024 Hyaline casts Auto (Urine sed) [#/Area] 9-19 [LPF] High 0-8 [facility] Ketones [Presence] in Urine by Test stripOrdered By: Silvano Reed on 11-11-2024 Ketones Ql (U) Negative Normal Negative [facility] Comment on above: Order Comment: Name Collection Type:: Straight Catheter Performed By: #### A DDONUAPLUS ####[address] Leukocyte esterase [Presence ] in Urine by Test stripOrdered By: Silvano Reed on 11-11-2024 Leukocyte esterase Test strip Ql (U) 2+ Normal Negative [facility] Comment on above: Order Comment: Name Collection Type:: Straight Catheter Performed By: #### A DDONUAPLUS ####[place] [address] [place] Leukocytes [#/area] in Urine sediment by Automated countOrdered By: Silvano Reed on 11-11-2024 WBC Auto (Urine sed) [#/Area] 20-49 [HPF] High 0-4 [facility] Mucus [Presence] in Urine by AutomatedOrdered By: Silvano Reed on 11-11-2024 Mucus Auto Ql (U) Rare [LPF] [facility] Nitrite Test strip Ql (U)Ord ered By: Silvano Reed on 11-11-2024 Nitrite Ql (U) Positive High Negative [facility] Protein Test strip (U) [Mass /Vol]Ordered By: Silvano Reed on 11-11-2024 Protein (U) [Mass/Vol] Negative Negative [facility] Specific gravity Test strip (U) [Rel density]Ordered By: Silvano Reed on 11-11-2024 Specific gravity (U) [Rel density] 1.012 1.001-1.03 0 [facility] Urobilinogen Test strip (U) [Mass/Vol]Ordered By: Silvano Reed on 11-11-2024 Urobilinogen (U) [Mass/Vol] Normal mg/dL Normal [facility] X-ray reportOrdered By: Addy yIer on 11-11-2024 Study report [facility] [place] [address] XRay Report Signed Patient: Mary Mcadams MR#: [id number] : 1955 Acct:[id number] Age/Sex: 69 / M ADM Date: 5 Loc: Room: [address] [place] [address] Type: ADM IN Attending Dr: Silvano Reed DO Copies to: DO Silvano Jimenez DO~ Ordering Provider: Hasmukh Vides DO Date of Service: 11/10/24 XR/XR chest 1V portable: Shortness of Breath/Dyspnea SINGLE VIEW CHEST CLINICAL HISTORY: Shortness breath for 2 weeks, history of CHF sarcoidosis COMPARISON: 07/03/2024 FINDINGS: Similar appearance of the calcified granulomatous changes within the suprahilar and hilar regions. Similar appearance of the chronic pleural-parenchymal changes noted involving both lung apices. Trace blunting costophrenic angles basilar scarring or trace effusions. Evidence of new or progression of the disease. XR/XR chest 1V portable IMPRESSION: STABLE CHRONIC FINDINGS. NO EVIDENCE OF DEFINITE DISEASE PROGRESSION Impression dictated by: Prudencio Iyer M.D. 11/11/2024 8:12 AM Dictation Location: [place] [address] Transcribed By: [facility] 11/11/24 0812 Dictated By: Prudencio Iyer MD 11/11/24809 Signed By: 11/11/[address] [facility] Work Phone: XR chest 1V portableon 11-11 XR chest 1V portable Normal [facility] pH of Urine by Test stripOrd ered By: Silvano Reed on 11-11-2024 pH (U) 5.5 [pH] Normal 5.0-9.0 [facility] Comment on above: Order Comment: Name Collection Type:: Straight Catheter Performed By: #### A DDONUAPLUS ####[place] [id number] [place] [id number] [place] Alanine aminotransferase [En zymatic activity/volume] in Serum or PlasmaOrdered By: Hasmukh Vides on 11-10-2024 ALT [Catalytic activity/Vol] 10 U/L Normal 7-52 [facility] Comment on above: Performed By: #### B AUTOMOTIVE SERVICE PROFESSIONAL, HS TROP, CBC, MG, CK, CMP ####[place] [id number] [place] Albumin [Mass/volume] in Ser um or Plasma by Bromocresol green (BCG) dye binding methoOrdered By: Hasmukh Vides on 11-10-2024 Albumin BCG dye [Mass/Vol] 3.9 g/dL 3.5-5.7 [facility] Alkaline phosphatase [Enzyma tic activity/volume] in Serum or PlasmaOrdered By: Hasmukh Vides on 11-10-2024 ALP [Catalytic activity/Vol] 149 U/L High 34-104 [facility] Comment on above: Performed By: #### B AUTOMOTIVE SERVICE PROFESSIONAL, HS TROP, CBC, MG, CK, CMP ####[place] [id number] [place] Appearance of UrineOrdered B y: Hasmukh Vides on 11-10-2024 Appearance (U) Clear Normal Clear [facility] Comment on above: Order Comment: Name Collection Type:: Clean-Voided Midstream Performed By: #### A DDONUAPRIYANK, CUU ####[place] [id number] [place] [id number] [facility] Aspartate aminotransferase [ Enzymatic activity/volume] in Serum or PlasmaOrdered By: Hasmukh Vides on 11-10-2024 AST [Catalytic activity/Vol] 19 U/L Normal 13-39 [facility] Comment on above: Performed By: #### B AUTOMOTIVE SERVICE PROFESSIONAL, HS TROP, CBC, MG, CK, CMP ####[address] [address] [facility] BNP ser/plasOrdered By: Juan Vides on 11-10-2024 Natriuretic peptide B (Bld) [Mass/Vol] 187.0 pg/mL High 5-100 [facility] Comment on above: Result Comment: PERF ORMED BY:[place] [address] [address] [place], [place] [phone] MEDICAL JOSEE CASTANEDA M.D. Performed By: #### B AUTOMOTIVE SERVICE PROFESSIONAL, HS TROP, CBC, MG, CK, CMP ####[address] [address] [facility] Bacteria [Presence] in Urine by AutomatedOrdered By: Hasmukh Vides on 11-10-2024 Bacteria Auto Ql (U) 2+ [HPF] High None Seen [facility] Basophils [#/volume] in Bloo d by Automated countOrdered By: Hasmukh Vides on 11-10-2024 Basophils (Bld) [#/Vol] 0.0 10*3/uL Normal 0.0-0.2 [facility] Comment on above: Result Comment: PERF ORMED BY:[place] [address] [address] [place] [place], [place] [phone] MEDICAL JOSEE CASTANEDA M.D. Performed By: #### B AUTOMOTIVE SERVICE PROFESSIONAL, HS TROP, CBC, MG, CK, CMP ####[address] [address] [place] Basophils/100 leukocytes in Blood by Automated countOrdered By: Hasmukh Vides on 11-10-2024 Basophils/100 WBC (Bld) 0.5 % Normal . [facility] Comment on above: Performed By: #### B AUTOMOTIVE SERVICE PROFESSIONAL, HS TROP, CBC, MG, CK, CMP ####[address] [place] [address] [place] Bilirubin Test strip Ql (U)O rdered By: Hasmukh Vides on 11-10-2024 Bilirubin Ql (U) Negative Negative [facility] Bilirubin.total [Mass/volume ] in Serum or PlasmaOrdered By: Hasmukh Vides on 11-10-2024 Bilirubin [Mass/Vol] 0.6 mg/dL Normal 0.3-1.0 [facility] Comment on above: Performed By: #### B AUTOMOTIVE SERVICE PROFESSIONAL, HS TROP, CBC, MG, CK, CMP ####[place] [id number] [facility] Calcium [Mass/volume] in Ser um or PlasmaOrdered By: Hasmukh Vides on 11-10-2024 Calcium [Mass/Vol] 9.8 mg/dL Normal 8.6-10.3 [facility] Comment on above: Performed By: #### B AUTOMOTIVE SERVICE PROFESSIONAL, HS TROP, CBC, MG, CK, CMP ####[address] Carbon dioxide, total [Moles /volume] in Serum or PlasmaOrdered By: Hasmukh Vides on 11-10-2024 CO2 [Moles/Vol] 28.0 mmol/L Normal 21.0-31.0 [facility] Comment on above: Performed By: #### B AUTOMOTIVE SERVICE PROFESSIONAL, HS TROP, CBC, MG, CK, CMP ####[place] [id number] [facility] Chloride [Moles/volume] in S christine or PlasmaOrdered By: Hasmukh Vides on 11-10-2024 Chloride [Moles/Vol] 98 mmol/L Normal 98-107 [facility] Comment on above: Performed By: #### B AUTOMOTIVE SERVICE PROFESSIONAL, HS TROP, CBC, MG, CK, CMP ####[place] [id number] [facility] Color of Urine by AutoOrdere d By: Hasmukh Vides on 11-10-2024 Color (U) Light-yellow Normal Yellow [facility] Comment on above: Order Comment: Name Collection Type:: Clean-Voided Midstream Performed By: #### A DDONUAPLUS, CUU ####[address] Complete Blood Count Auto Di ffon 11-10-2024 Mean Corpuscular HGB Conc 33.4 g/dL Normal 32.5-35.6 [facility] Comment on above: Performed By: #### B AUTOMOTIVE SERVICE PROFESSIONAL, HS TROP, CBC, MG, CK, CMP ####[address] Monocytes/100 WBC (Bld) 18.48 % Normal 0.00-20.00 [facility] Comment on above: Performed By: #### B AUTOMOTIVE SERVICE PROFESSIONAL, HS TROP, CBC, MG, CK, CMP ####[address] NRBC% 0.1 /100{WBC} Normal 0-0.5 [facility] Comment on above: Performed By: #### B AUTOMOTIVE SERVICE PROFESSIONAL, HS TROP, CBC, MG, CK, CMP ####[address] White Blood Count 6.4 [CFU]/mL Normal 4.1-10.5 [facility] Comment on above: Performed By: #### B AUTOMOTIVE SERVICE PROFESSIONAL, HS TROP, CBC, MG, CK, CMP ####[address] Comprehensive Metabolic Pane juliana 11-10-2024 Albumin [Mass/Vol] 3.9 g/dL Normal 3.5-5.7 [facility] Comment on above: Performed By: #### B AUTOMOTIVE SERVICE PROFESSIONAL, HS TROP, CBC, MG, CK, CMP ####[address] Creatinine Clr Calc Pharmacy 77.17 Normal [facility] Comment on above: Performed By: #### B AUTOMOTIVE SERVICE PROFESSIONAL, HS TROP, CBC, MG, CK, CMP ####[address] GFR/1.73 sq M.predicted MDRD (S/P/Bld) [Vol rate/Area] mL/min/{1.73_m2} Normal [facility] Comment on above: Performed By: #### B AUTOMOTIVE SERVICE PROFESSIONAL, HS TROP, CBC, MG, CK, CMP ####[place] [id number] [facility] Creatine kinase [Enzymatic a ctivity/volume] in Serum or PlasmaOrdered By: Hasmukh Vides on 11-10-2024 CK [Catalytic activity/Vol] 27 U/L Low 30-223 [facility] Comment on above: Performed By: #### B AUTOMOTIVE SERVICE PROFESSIONAL, HS TROP, CBC, MG, CK, CMP ####[place] [id number] [facility] Creatinine [Mass/volume] in Serum or PlasmaOrdered By: Hasmukh Vides on 11-10-2024 Creatinine [Mass/Vol] 0.80 mg/dL Normal 0.70-1.30 [facility] Comment on above: Performed By: #### B AUTOMOTIVE SERVICE PROFESSIONAL, HS TROP, CBC, MG, CK, CMP ####[address] Dipstick and Microscopicon 0 11-10-2024 Bacteria,Urine 2+ [HPF] Normal None Seen [facility] Comment on above: Order Comment: Name Collection Type:: Clean-Voided Midstream Performed By: #### A DDONUAPLUS, CUU ####[place] [id number] [facility] Bilirubin,Urine Negative Normal Negative [facility] Comment on above: Order Comment: Name Collection Type:: Clean-Voided Midstream Performed By: #### A DDONUAPLUS, CUU ####[place] [id number] [facility] Glucose Ql (U) Normal Normal Normal [facility] Comment on above: Order Comment: Name Collection Type:: Clean-Voided Midstream Performed By: #### A DDONUAPLUS, CUU ####[address] [address] [facility] Hyaline Casts,Urine 9-19 Normal 0-8 [facility] Comment on above: Order Comment: Name Collection Type:: Clean-Voided Midstream Performed By: #### A DDONUAPLUS, CUU ####[address] [address] [place] Mucus,Urine Rare Normal [facility] Comment on above: Order Comment: Name Collection Type:: Clean-Voided Midstream Result Comment: PERF ORMED BY:[place] [address] [address] [place], [place] [phone] MEDICAL DIRECTORREGGIE CASTANEDA M.D. Performed By: #### A DDONUAPLUS, CUU ####[address] [address] [facility] Nitrite,Urine Positive Normal Negative [facility] Comment on above: Order Comment: Name Collection Type:: Clean-Voided Midstream Performed By: #### A DDONUAPLUS, CUU ####[address] [address] [facility] Occult Blood,Urine Negative Normal Negative [facility] Comment on above: Order Comment: Name Collection Type:: Clean-Voided Midstream Result Comment: PERF ORMED BY:[address] [place], [place] [phone] MEDICAL JOSEE CASTANEDA M.D. Performed By: #### A DDONUAPLUS, CUU ####[address] [address] [facility] Protein,Urine Negative Normal Negative [facility] Comment on above: Order Comment: Name Collection Type:: Clean-Voided Midstream Performed By: #### A DDONUAPLUS, CUU ####[address] [address] [facility] RBC,Urine 3-4 Normal 0-4 [facility] Comment on above: Order Comment: Name Collection Type:: Clean-Voided Midstream Performed By: #### A DDONUAPLUS, CUU ####[address] [address] [facility] Specificy Mcintosh,Urine 1.010 Normal 1.00 1-1.03 0 [facility] Comment on above: Order Comment: Name Collection Type:: Clean-Voided Midstream Performed By: #### A DDONUAPLUS, CUU ####[address] Squamous Epithelial Cell,Urine 1-2 Normal 0-2 [facility] Comment on above: Order Comment: Name Collection Type:: Clean-Voided Midstream Performed By: #### A DDONUAPLUS, CUU ####[address] Urobilinogen,Urine Normal Normal Normal [facility] Comment on above: Order Comment: Name Collection Type:: Clean-Voided Midstream Performed By: #### A DDONUAPLUS, CUU ####[address] WBC CLUMP, Urine Many Normal None Seen [facility] Comment on above: Order Comment: Name Collection Type:: Clean-Voided Midstream Performed By: #### A DDONUAPLUS, CUU ####[address] WBC,Urine Innumerable Normal 0-4 [facility] Comment on above: Order Comment: Name Collection Type:: Clean-Voided Midstream Performed By: #### A DDONUAPLUS, CUU ####[address] ECG 12 lead ECGon 11-10-2024 ECG 12 lead ECG Normal [facility] Eosinophils [#/volume] in Bl ood by Automated countOrdered By: Hasmukh Vides on 11-10-2024 Eosinophils (Bld) [#/Vol] 0.3 10*3/uL Normal 0.0-0.45 [facility] Comment on above: Performed By: #### B AUTOMOTIVE SERVICE PROFESSIONAL, HS TROP, CBC, MG, CK, CMP ####[address] Eosinophils/100 leukocytes i n Blood by Automated countOrdered By: Hasmukh Vides on 11-10-2024 Eosinophils/100 WBC (Bld) 5.0 % Normal . [facility] Comment on above: Performed By: #### B AUTOMOTIVE SERVICE PROFESSIONAL, HS TROP, CBC, MG, CK, CMP ####[facility] Epithelial cells.squamous [# /area] in Urine sediment by Automated countOrdered By: Hasmukh Vides on 11-10-2024 Epithelial cells.squamous Auto (Urine sed) [#/Area] 1-2 [HPF] 0-2 [facility] Erythrocyte distribution wid th [Ratio] by Automated countOrdered By: Hasmukh Vides on 11-10-2024 Erythrocyte distribution width (RBC) [Ratio] 16.5 % High 12.0-14.8 [facility] Comment on above: Performed By: #### B AUTOMOTIVE SERVICE PROFESSIONAL, HS TROP, CBC, MG, CK, CMP ####[place] [id number] [address] Erythrocytes [#/area] in Uri ne sediment by Automated countOrdered By: Hasmukh Vides on 11-10-2024 RBC Auto (Urine sed) [#/Area] 3-4 [HPF] 0-4 [facility] Erythrocytes [#/volume] in B lood by Automated countOrdered By: Hasmukh Vides on 11-10-2024 RBC (Bld) [#/Vol] 3.90 10*6/uL Normal 3.90-5.60 [facility] Comment on above: Performed By: #### B AUTOMOTIVE SERVICE PROFESSIONAL, HS TROP, CBC, MG, CK, CMP ####[address] Glucose [Mass/volume] in Ser um or PlasmaOrdered By: Hasmukh Vides on 11-10-2024 Glucose [Mass/Vol] 100 mg/dL Normal 70-100 [facility] Comment on above: ADA recommended refe rence rangeRandom Glucose Reference Range is dependent on time and content of last meal. Glucose of more than 200 mg/dL in a nonstressed, ambulatory subject supports the diagnosis of Diabetes Mellitus. Result Comment: [place] om Glucose Reference Range is dependent on time and content of last meal. Glucose of more than 200 mg/dL in a nonstressed, ambulatory subject supports the diagnosis of Diabetes Mellitus. ADA recommended reference range Performed By: #### B AUTOMOTIVE SERVICE PROFESSIONAL, HS TROP, CBC, MG, CK, CMP ####[facility] Glucose [Mass/volume] in Uri ne by Test stripOrdered By: Hasmukh Vides on 11-10-2024 Glucose Test strip (U) [Mass/Vol] Normal mg/dL Normal [facility] Hematocrit [Volume Fraction] of Blood by Automated countOrdered By: Hasmukh Vides on 11-10-2024 Hematocrit (Bld) [Volume fraction] 31.6 % Low 38.8-50.0 [facility] Comment on above: Performed By: #### B AUTOMOTIVE SERVICE PROFESSIONAL, HS TROP, CBC, MG, CK, CMP ####[address] Hemoglobin Test strip Ql (U) Ordered By: Hasmukh Vides on 11-10-2024 Hemoglobin Ql (U) Negative Negative [facility] Hemoglobin [Mass/volume] in BloodOrdered By: Hasmukh Vides on 11-10-2024 Hemoglobin (Bld) [Mass/Vol] 10.5 g/dL Low 13.0-17.0 [facility] Comment on above: Performed By: #### B AUTOMOTIVE SERVICE PROFESSIONAL, HS TROP, CBC, MG, CK, CMP ####[address] Hyaline casts [#/area] in Ur ine sediment by Automated countOrdered By: Hasmukh Vides on 11-10-2024 Hyaline casts Auto (Urine sed) [#/Area] 9-19 [LPF] High 0-8 [facility] Ketones [Presence] in Urine by Test stripOrdered By: Hasmukh Vides on 11-10-2024 Ketones Ql (U) Negative Normal Negative [facility] Comment on above: Order Comment: Name Collection Type:: Clean-Voided Midstream Performed By: #### A SUSIE JORGENSEN ####[address] Leukocyte clumps [Presence] in Urine by AutomatedOrdered By: Hasmukh Vides on 11-10-2024 Leukocyte clumps Auto Ql (U) Many [LPF] High None Seen [facility] Leukocyte esterase [Presence ] in Urine by Test stripOrdered By: Hasmukh Vides on 11-10-2024 Leukocyte esterase Test strip Ql (U) 4+ Normal Negative [facility] Comment on above: Order Comment: Name Collection Type:: Clean-Voided Midstream Performed By: #### A RADHA JORGENSENU ####[place] [id number] Leukocytes [#/area] in Urine sediment by Automated countOrdered By: Hasmukh Vides on 11-10-2024 WBC Auto (Urine sed) [#/Area] Innumerable [HPF] High 0-4 [facility] Leukocytes [#/volume] correc junior for nucleated erythrocytes in Blood by Automated counOrdered By: Hasmukh Vides on 11-10-2024 WBC corrected for nucl RBC Auto (Bld) [#/Vol] 6.4 10*3/uL 4.1-10.5 [facility] Leukocytes [#/volume] in Blo od by Automated countOrdered By: Hasmukh Vides on 11-10-2024 WBC (Bld) [#/Vol] 6.4 10*3/uL Normal 4.1-10.5 [facility] Comment on above: Performed By: #### B AUTOMOTIVE SERVICE PROFESSIONAL, HS TROP, CBC, MG, CK, CMP ####[address] Lymphocytes [#/volume] in Bl ood by Automated countOrdered By: Hasmukh Vides on 11-10-2024 Lymphocytes (Bld) [#/Vol] 1.2 10*3/uL Normal 1.00-4.8 [facility] Comment on above: Performed By: #### B AUTOMOTIVE SERVICE PROFESSIONAL, HS TROP, CBC, MG, CK, CMP ####[address] Lymphocytes/100 leukocytes i n Blood by Automated countOrdered By: Hasmukh Vides on 11-10-2024 Lymphocytes/100 WBC (Bld) 18.7 % Normal . [facility] Comment on above: Performed By: #### B AUTOMOTIVE SERVICE PROFESSIONAL, HS TROP, CBC, MG, CK, CMP ####[place] [id number] [facility] MCH [Entitic mass] by Automa junior countOrdered By: Hasmukh Vides on 11-10-2024 MCH (RBC) [Entitic mass] 27.0 pg Low 27.5-35.2 [facility] Comment on above: Performed By: #### B AUTOMOTIVE SERVICE PROFESSIONAL, HS TROP, CBC, MG, CK, CMP ####[place] [id number] [place] [id number] [facility] MCHC Auto (RBC) [Mass/Vol]Or dered By: Hasmukh Vides on 11-10-2024 MCHC (RBC) [Mass/Vol] 33.4 g/dL 32.5-35.6 [facility] MCV [Entitic volume] by Auto mated countOrdered By: Hasmukh Vides on 11-10-2024 MCV (RBC) [Entitic vol] 80.8 fL Low 83.5-101 F [facility] Comment on above: Performed By: #### B AUTOMOTIVE SERVICE PROFESSIONAL, HS TROP, CBC, MG, CK, CMP ####[place] [id number] [address] Magnesium [Mass/volume] in S christine or PlasmaOrdered By: Hasmukh Vides on 11-10-2024 Magnesium [Mass/Vol] 1.6 mg/dL Low 1.9-2.7 [facility] Comment on above: Result Comment: PERF ORMED BY:[address] [place], [place] [phone] MEDICAL DIRECTORREGGIE CASTANEDA M.D. Performed By: #### B AUTOMOTIVE SERVICE PROFESSIONAL, HS TROP, CBC, MG, CK, CMP ####[place] [id number] [place] [id number] [facility] Monocyte distribution width [Entitic volume] in Blood by AutomatedOrdered By: Hasmukh Vides on 11-10-2024 Monocyte distribution width Auto (Bld) [Entitic vol] 18.48 % 0.00-20.00 [facility] Monocytes [#/volume] in Bloo d by Automated countOrdered By: Hasmukh Vides on 11-10-2024 Monocytes (Bld) [#/Vol] 0.6 10*3/uL Normal 0.0-0.8 [facility] Comment on above: Performed By: #### B AUTOMOTIVE SERVICE PROFESSIONAL, HS TROP, CBC, MG, CK, CMP ####[place] [id number] [address] Monocytes/100 leukocytes in Blood by Automated countOrdered By: Hasmukh Vides on 11-10-2024 Monocytes/100 WBC (Bld) 9.3 % Normal . F [facility] Comment on above: Performed By: #### B AUTOMOTIVE SERVICE PROFESSIONAL, HS TROP, CBC, MG, CK, CMP ####[address] Mucus [Presence] in Urine by AutomatedOrdered By: Hasmukh Vides on 11-10-2024 Mucus Auto Ql (U) Rare [LPF] [facility] Neutrophils [#/volume] in Bl ood by Automated countOrdered By: Hasmukh Vides on 11-10-2024 Neutrophils (Bld) [#/Vol] 4.3 10*3/uL Normal 1.8-7.7 [facility] Comment on above: Performed By: #### B AUTOMOTIVE SERVICE PROFESSIONAL, HS TROP, CBC, MG, CK, CMP ####[address] Neutrophils/100 leukocytes i n Blood by Automated countOrdered By: Hasmukh Vides on 11-10-2024 Neutrophils/100 WBC (Bld) 66.5 % Normal . [facility] Comment on above: Performed By: #### B AUTOMOTIVE SERVICE PROFESSIONAL, HS TROP, CBC, MG, CK, CMP ####[address] Nitrite Test strip Ql (U)Ord ered By: Hasmukh Vides on 11-10-2024 Nitrite Ql (U) Positive High Negative [facility] No Panel InformationOrdered By: Hasmukh Vides on 11-10-2024 Estimated GFR (CKD-EPI) > 60.0 mL/Min [facility] Creatinine Clearance (Chem 77.17 [facility] Nucleated erythrocytes [Pres ence] in Blood by Automated countOrdered By: Hasmukh Vides on 11-10-2024 Nucleated RBC Auto Ql (Bld) 0.1 /100{WBC} 0-0.5 [facility] Platelet mean volume [Entiti c volume] in Blood by Automated countOrdered By: Hasmukh Vides on 11-10-2024 Platelet mean volume (Bld) [Entitic vol] 7.9 fL Normal 6.6-10.1 [facility] Comment on above: Performed By: #### B AUTOMOTIVE SERVICE PROFESSIONAL, HS TROP, CBC, MG, CK, CMP ####[address] Platelets [#/volume] in Bloo d by Automated countOrdered By: Hasmukh Vides on 11-10-2024 Platelets (Bld) [#/Vol] 262 10*3/uL Normal 150-450 [facility] Comment on above: Performed By: #### B AUTOMOTIVE SERVICE PROFESSIONAL, HS TROP, CBC, MG, CK, CMP ####[address] Potassium [Moles/volume] in Serum or PlasmaOrdered By: Hasmukh Vides on 11-10-2024 Potassium [Moles/Vol] 4.1 mmol/L Normal 3.5-5.1 [facility] Comment on above: Performed By: #### B AUTOMOTIVE SERVICE PROFESSIONAL, HS TROP, CBC, MG, CK, CMP ####[address] Protein Test strip (U) [Mass /Vol]Ordered By: Hasmukh Vides on 11-10-2024 Protein (U) [Mass/Vol] Negative Negative [facility] Protein [Mass/volume] in Ser um or PlasmaOrdered By: Hasmukh Vides on 11-10-2024 Protein [Mass/Vol] 7.5 g/dL Normal 6.4-8.9 [facility] Comment on above: Performed By: #### B AUTOMOTIVE SERVICE PROFESSIONAL, HS TROP, CBC, MG, CK, CMP ####[place] [id number] [facility] Serum globulin measurement b y calculation (mass/volume)Ordered By: Hasmukh Vides on 11-10-2024 Globulin (S) [Mass/Vol] 3.6 g/dL Normal [facility] Comment on above: Performed By: #### B AUTOMOTIVE SERVICE PROFESSIONAL, HS TROP, CBC, MG, CK, CMP ####[address] Serum or plasma albumin/glob ulin mass ratioOrdered By: Hasmukh Vides on 11-10-2024 Albumin/Globulin [Mass ratio] 1.1 {ratio} Normal [facility] Comment on above: Performed By: #### B AUTOMOTIVE SERVICE PROFESSIONAL, HS TROP, CBC, MG, CK, CMP ####[place] [id number] [address] Serum or plasma anion gap de terminationOrdered By: Hasmukh Vides on 11-10-2024 Anion gap [Moles/Vol] 11.1 mmol/L Normal 6.0-15.0 [facility] Comment on above: Performed By: #### B AUTOMOTIVE SERVICE PROFESSIONAL, HS TROP, CBC, MG, CK, CMP ####[address] Sodium [Moles/volume] in Ser um or PlasmaOrdered By: Hasmukh Vides on 11-10-2024 Sodium [Moles/Vol] 133 mmol/L Low 136-145 [facility] Comment on above: Performed By: #### B AUTOMOTIVE SERVICE PROFESSIONAL, HS TROP, CBC, MG, CK, CMP ####[address] Specific gravity Test strip (U) [Rel density]Ordered By: Hasmukh Vides on 11-10-2024 Specific gravity (U) [Rel density] 1.010 1.001-1.03 0 [facility] Troponin I High Sensitivityo n 11-10-2024 Troponin I High Sensitivity 4 Normal 0-20 [facility] Comment on above: Result Comment: The Troponin units of report have been changed to meet the Chest Pain Accreditation requirement, element EC5.M1l2. Troponin units are changed from pg/ml to ng/L. Also, the decimal is removed and results are in whole numbers.PERFORMED BY:[address] [place], [place] [phone] MEDICAL DIRECTORMARIO S TONYA M.D. Performed By: #### B AUTOMOTIVE SERVICE PROFESSIONAL, HS TROP, CBC, MG, CK, CMP ####[address] Troponin I.cardiac [Mass/vol ume] in Serum or Plasma by Detection limit <= 0.01 ng/mLOrdered By: Hasmukh Vides on 11-10-2024 Troponin I.cardiac DL <= 0.01 ng/mL [Mass/Vol] 4 ng/L 0-20 [facility] Comment on above: The Troponin units o f report have been changed to meet the Chest Pain Accreditation requirement, element EC5.M1l2. Troponin units are changed from pg/ml to ng/L. Also, the decimal is removed and results are in whole numbers. Urea nitrogen [Mass/volume] in Serum or PlasmaOrdered By: Hasmukh Vides on 11-10-2024 Urea nitrogen [Mass/Vol] 14 mg/dL Normal 7-25 [facility] Comment on above: Performed By: #### B AUTOMOTIVE SERVICE PROFESSIONAL, HS TROP, CBC, MG, CK, CMP ####[address] Urine Cultureon 11-10-2024 Bacteria identified Cx Nom (U) Normal [facility] Comment on above: Performed By: #### A SUSIE JORGENSEN ####[address] Urine cultureOrdered By: Michael Vides on 11-10-2024 Bacteria identified Cx Nom (U) bacilli - 2 Days [facility] Urobilinogen Test strip (U) [Mass/Vol]Ordered By: Hasmukh Vides on 11-10-2024 Urobilinogen (U) [Mass/Vol] Normal mg/dL Normal [facility] pH of Urine by Test stripOrd ered By: Hasmukh Vides on 11-10-2024 pH (U) 5.5 [pH] Normal 5.0-9.0 [facility] Comment on above: Order Comment: Name Collection Type:: Clean-Voided Midstream Performed By: #### A JOSLYN CUU ####[address] ECG 12 Leadon 10-31-2024 ECG revealed normal sinus rhythm with first-degree AV block, left ventricle hypertrophy with QRS widening, prolonged QT interval [facility] Work Phone: [facility] Work Phone: Provider Letteron 08-09-2024 Provider Letter Provider Letter August 09, 2024 MARY MCADAMS [address] [place] [id number] : 1955 Dear Mary, We have been trying to reach you with no success. Please find enclosed PSA results. Also, at the time of your call, please provide us with your current information. Thank you for your prompt attention to this matter. Sincerely, [facility] [address] [place] [address] [facility] TRANSTHORACIC ECHO (TTE) COM PLETEon 08-09-2024 TRANSTHORACIC ECHO (TTE) COMPLETE [address], [address] [address] TRANSTHORACIC ECHOCARDIOGRAM REPORT Patient Name: MARY PEMA Reading Physician: [id number] Shannon Gonzalez MD, [facility] Study Date: 08/09/2024 Ordering Provider: [id number] SHANNON GONZALEZ MRN/PID: [id number] Fellow: Nurse: Date of /Age: 408/18/1955 / [address] Project Manager: Adamaris Yoder RDCS, RT(R), RDMS, RVT Gender Assigned at Additional Staff: : Height: 182.88 cm Admit Date: Weight: 70.76 kg Admission Status: Outpatient BSA / BMI: 1.92 m2 / 21.16 Department Location: [facility]/[address] Blood Pressure: 98 /60 mmHg Study Type: TRANSTHORACIC ECHO (TTE) COMPLETE Diagnosis/ICD: Cardiomyopathy, unspecified-I42.9 Indication: NICM CPT Codes: Echo Complete w Full Doppler-[id number] Patient History: Pertinent History: A-Fib, COPD and Pulmonary Sarcoudosis HX of LV thrombus. Study Detail: The following Echo studies were performed: 2D, M-Mode, Doppler and color flow. PHYSICIAN INTERPRETATION: Left Ventricle: Left ventricular ejection fraction is mildly decreased, by visual estimate at 50%. There is mild concentric left ventricular hypertrophy. The left ventricular cavity size is normal. There is mildly increased posterior left ventricular wall thickness. Spectral Doppler shows a normal pattern of left ventricular diastolic filling. Left Atrium: The left atrial size is normal. Right Ventricle: The right ventricle is normal in size. There is normal right ventricular global systolic function. Right Atrium: The right atrial size is normal. Aortic Valve: The aortic valve is trileaflet. The aortic valve dimensionless index is 0.68. There is trace aortic valve regurgitation. The peak instantaneous gradient of the aortic valve is 6 mmHg. The mean gradient of the aortic valve is 3 mmHg. Mitral Valve: The mitral valve is normal in structure. The peak instantaneous gradient of the mitral valve is 2 mmHg. There is no evidence of mitral valve regurgitation. Tricuspid Valve: The tricuspid valve is structurally normal. No evidence of tricuspid regurgitation. Pulmonic Valve: The pulmonic valve is structurally normal. There is no indication of pulmonic valve regurgitation. Pericardium: No pericardial effusion noted. Aorta: The aortic root is abnormal. There is mild dilatation of the aortic root. Systemic Veins: The inferior vena cava appears normal in size. CONCLUSIONS: 1. Left ventricular ejection fraction is mildly decreased, by visual estimate at 50%. 2. There is normal right ventricular global systolic function. QUANTITATIVE DATA SUMMARY: 2D MEASUREMENTS: Normal Ranges: Ao Root d: 3.90 cm (2.0-3.7cm) LAs: 3.01 cm (2.7-4.0cm) RVIDd: 2.17 cm (0.9-3.6cm) IVSd: 1.35 cm (0.6-1.1cm) LVPWd: 1.19 cm (0.6-1.1cm) LVIDd: 4.75 cm (3.9-5.9cm) LVIDs: 2.81 cm LV Mass Index: 121.5 g/m2 LVEDV Index: 24.96 ml/m2 LV % FS 40.8 % LEFT ATRIUM: Normal Ranges: LA Vol A4C: 66.5 ml (22+/-6mL/m2) LA Vol A2C: 64.2 ml LA Vol BP: 67.6 ml LA Vol Index A4C: 34.7ml/m2 LA Vol Index A2C: 33.5 ml/m2 LA Vol Index BP: 35.2 ml/m2 LA Vol A4C: 65.7 ml LA Vol A2C: 60.3 ml LA Vol Index BSA: 32.8 ml/m2 LV SYSTOLIC FUNCTION: Normal Ranges: EF-A4C View: 49 % (>=55%) EF-A2C View: 31 % EF-Biplane: 41 % EF-Visual: 50 % LV EF Reported: 50 % LV DIASTOLIC FUNCTION: Normal Ranges: MV Peak E: 0.48 m/s (0.7-1.2 m/s) MV Peak A: 0.41 m/s (0.42-0.7 m/s) E/A Ratio: 1.18 (1.0-2.2) MV e' 0.077 m/s (>8.0) MV lateral e' 0.10 m/s MV medial e' 0.05 m/s E/e' Ratio: 6.26 (<8.0) MITRAL VALVE: Normal Ranges: MV Vmax: 0.62 m/s (<=1.3m/s) MV peak P.5 mmHg (<5mmHg) MV mean P.8 mmHg (<48mmHg) MV VTI: 17.26 cm (10-13cm) MV DT: 134 msec (150-240msec) MV PHT: 43 msec (30-60msec) MVA by PHT: 5.12 cm2 (4-6cm2) MITRAL INSUFFICIENCY: Normal Ranges: MR Vmax: 246.56 cm/s AORTIC VALVE: Normal Ranges: AoV Vmax: 1.17 m/s (<=1.7m/s) AoV Peak P.5 mmHg (<20mmHg) AoV Mean P.1 mmHg (1.7-11.5mmHg) LVOT Max Christina: 0.72 m/s (<=1.1m/s) AoV VTI: 22.13 cm (18-25cm) LVOT VTI: 15.10 cm LVOT Diameter: 2.49 cm (1.8-2.4cm) AoV Area, VTI: 3.33 cm2 (2.5-5.5cm2) AoV Area,Vmax: 2.98 cm2 (2.5-4.5cm2) AoV Dimensionless Index: 0.68 AORTIC INSUFFICIENCY: AI Vmax: 3.62 m/s AI Half-time: 408 msec AI Decel Time: 1407 msec AI Decel Rate: 253.24 cm/s2 RIGHT VENTRICLE: RV Basal 3.23 cm RV Major 6.3 cm TAPSE: 23.1 mm RV s' 0.13 m/s TRICUSPID VALVE/RVSP: Normal Ranges: Peak TR Velocity: 2.70 m/s Est. RA Pressure: 5 mmHg RV Syst Pressure: 34 mmHg (< 30mmHg) IVC Diam: 1.49 cm PULMONIC VALVE: Normal Ranges: RVOT Vmax: 0.57 m/s (0.6-0.9m/s) PV Max Christina: 0.8 m/s (0.6-0.9m/s) PV Max P.3 mmHg PV Mean P.3 mmHg AORTA: Asc Ao Diam 4.09 cm [id number] Shannon Gonzalez MD, FACC Electronically signed on 08/09/2024 at 5:39:23 PM * (more content not included)... Normal [facility] US Heart Transthoracicon Aortic Valve Area by Continuity of Peak Velocity 2.98 cm2 [facility] Work Phone: [phone] Aortic Valve Area by Continuity of VTI 3.33 cm2 [facility] Work Phone: [phone] AV mn grad 3 mmHg [facility] Work Phone: AV pk grad 6 mmHg [facility] Work Phone: AV pk christina 1.17 m/s [facility] Work Phone: [phone] LA vol index A/L 35.2 ml/m2 [facility] Work Phone: [phone] LV A4C EF 49.3 [facility] Work Phone: [phone] LV Biplane EF 41 % [facility] Work Phone: [phone] LV EF 50 % [facility] Work Phone: [phone] LVIDd 4.75 cm [facility] Work Phone: LVOT diam 2.49 cm [facility] Work Phone: MV avg E/e' ratio 6.[address] [facility] Work Phone: MV E/A ratio 1.18 [facility] Work Phone: RV free wall pk S' 13.32 cm/s [facility] Work Phone: RVSP 34.1 mmHg [facility] Work Phone: Tricuspid annular plane systolic excursion 2.3 cm [facility] Work Phone: [address], [address] [place] [address] TRANSTHORACIC ECHOCARDIOGRAM REPORT Patient Name: MARY PEMA Campbell Physician: [id number] Shannon Gonzalez MD, [facility] Study Date: 08/09/2024 Ordering Provider: [id number] SHANNON GONZALEZ MRN/PID: [id number] Fellow: Nurse: Date of /Age: 408/18/1955 / [address] Project Manager: Adamaris Yoder RDCS, RT(R), RDMS, RVT Gender Assigned at M Additional Staff: : Height: 182.88 cm Admit Date: Weight: 70.76 kg Admission Status: Outpatient BSA / BMI: 1.92 m2 / 21.16 Department Location: [facility] Heart kg/m2 [place] Blood Pressure: 98 /60 mmHg Study Type: TRANSTHORACIC ECHO (TTE) COMPLETE Diagnosis/ICD: Cardiomyopathy, unspecified-I42.9 Indication: NICM CPT Codes: Echo Complete w Full Doppler-06008 Patient History: Pertinent History: A-Fib, COPD and Pulmonary Sarcoudosis HX of LV thrombus. Study Detail: The following Echo studies were performed: 2D, M-Mode, Doppler and color flow. PHYSICIAN INTERPRETATION: Left Ventricle: Left ventricular ejection fraction is mildly decreased, by visual estimate at 50%. There is mild concentric left ventricular hypertrophy. The left ventricular cavity size is normal. There is mildly increased posterior left ventricular wall thickness. Spectral Doppler shows a normal pattern of left ventricular diastolic filling. Left Atrium: The left atrial size is normal. Right Ventricle: The right ventricle is normal in size. There is normal right ventricular global systolic function. Right Atrium: The right atrial size is normal. Aortic Valve: The aortic valve is trileaflet. The aortic valve dimensionless index is 0.68. There is trace aortic valve regurgitation. The peak instantaneous gradient of the aortic valve is 6 mmHg. The mean gradient of the aortic valve is 3 mmHg. Mitral Valve: The mitral valve is normal in structure. The peak instantaneous gradient of the mitral valve is 2 mmHg. There is no evidence of mitral valve regurgitation. Tricuspid Valve: The tricuspid valve is structurally normal. No evidence of tricuspid regurgitation. Pulmonic Valve: The pulmonic valve is structurally normal. There is no indication of pulmonic valve regurgitation. Pericardium: No pericardial effusion noted. Aorta: The aortic root is abnormal. There is mild dilatation of the aortic root. Systemic Veins: The inferior vena cava appears normal in size. CONCLUSIONS: 1. Left ventricular ejection fraction is mildly decreased, by visual estimate at 50%. 2. There is normal right ventricular global systolic function. QUANTITATIVE DATA SUMMARY: 2D MEASUREMENTS: Normal Ranges: Ao Root d: 3.90 cm (2.0-3.7cm) LAs: 3.01 cm (2.7-4.0cm) RVIDd: 2.17 cm (0.9-3.6cm) IVSd: 1.35 cm (0.6-1.1cm) LVPWd: 1.19 cm (0.6-1.1cm) LVIDd: 4.75 cm (3.9-5.9cm) LVIDs: 2.81 cm LV Mass Index: 121.5 g/m2 LVEDV Index: 24.96 ml/m2 LV % FS 40.8 % LEFT ATRIUM: Normal Ranges: LA Vol A4C: 66.5 ml (22+/-6mL/m2) LA Vol A2C: 64.2 ml LA Vol BP: 67.6 ml LA Vol Index A4C: 34.7ml/m2 LA Vol Index A2C: 33.5 ml/m2 LA Vol Index BP: 35.2 ml/m2 LA Vol A4C: 65.7 ml LA Vol A2C: 60.3 ml LA Vol Index BSA: 32.8 ml/m2 LV SYSTOLIC FUNCTION: Normal Ranges: EF-A4C View: 49 % (>=55%) EF-A2C View: 31 % EF-Biplane: 41 % EF-Visual: 50 % LV EF Reported: 50 % LV DIASTOLIC FUNCTION: Normal Ranges: MV Peak E: 0.48 m/s (0.7-1.2 m/s) MV Peak A: 0.41 m/s (0.42-0.7 m/s) E/A Ratio: 1.18 (1.0-2.2) MV e' 0.077 m/s (>8.0) MV lateral e' 0.10 m/s MV medial e' 0.05 m/s E/e' Ratio: 6.26 (<8.0) MITRAL VALVE: Normal Ranges: MV Vmax: 0.62 m/s (<=1.3m/s) MV peak P.5 mmHg (<5mmHg) MV mean P.8 mmHg (<48mmHg) MV VTI: 17.26 cm (10-13cm) MV DT: 134 msec (150-240msec) MV PHT: 43 msec (30-60msec) MVA by PHT: 5.12 cm2 (4-6cm2) MITRAL INSUFFICIENCY: Normal Ranges: MR Vmax: 246.56 cm/s AORTIC VALVE: Normal Ranges: AoV Vmax: 1.17 m/s (<=1.7m/s) AoV Peak (more content not included)... Shannon Wilson M D - 08/09/[address], [address] [place] [address] TRANSTHORACIC ECHOCARDIOGRAM REPORT Patient Name: MARY Campbell Physician: [id number] Shannon Gonzalez MD, [facility] Study Date: 08/09/2024 Ordering Provider: [id number] SHANNON GONZALEZ MRN/PID: [id number] Fellow: Nurse: Date of /Age: 408/18/1955 / [address] Project Manager: Adamaris Yoder RDCS, RT(R), RDMS, RVT Gender Assigned at M Additional Staff: : Height: 182.88 cm Admit Date: Weight: 70.76 kg Admission Status: Outpatient BSA / BMI: 1.92 m2 / 21.16 Department Location: [facility] Heart kg/m2 [place] Blood Pressure: 98 /60 mmHg Study Type: TRANSTHORACIC ECHO (TTE) COMPLETE Diagnosis/ICD: Cardiomyopathy, unspecified-I42.9 Indication: NICM CPT Codes: Echo Complete w Full Doppler-[id number] Patient History: Pertinent History: A-Fib, COPD and Pulmonary Sarcoudosis HX of LV thrombus. Study Detail: The following Echo studies were performed: 2D, M-Mode, Doppler and color flow. PHYSICIAN INTERPRETATION: Left Ventricle: Left ventricular ejection fraction is mildly decreased, by visual estimate at 50%. There is mild concentric left ventricular hypertrophy. The left ventricular cavity size is normal. There is mildly increased posterior left ventricular wall thickness. Spectral Doppler shows a normal pattern of left ventricular diastolic filling. Left Atrium: The left atrial size is normal. Right Ventricle: The right ventricle is normal in size. There is normal right ventricular global systolic function. Right Atrium: The right atrial size is normal. Aortic Valve: The aortic valve is trileaflet. The aortic valve dimensionless index is 0.68. There is trace aortic valve regurgitation. The peak instantaneous gradient of the aortic valve is 6 mmHg. The mean gradient of the aortic valve is 3 mmHg. Mitral Valve: The mitral valve is normal in structure. The peak instantaneous gradient of the mitral valve is 2 mmHg. There is no evidence of mitral valve regurgitation. Tricuspid Valve: The tricuspid valve is structurally normal. No evidence of tricuspid regurgitation. Pulmonic Valve: The pulmonic valve is structurally normal. There is no indication of pulmonic valve regurgitation. Pericardium: No pericardial effusion noted. Aorta: The aortic root is abnormal. There is mild dilatation of the aortic root. Systemic Veins: The inferior vena cava appears normal in size. CONCLUSIONS: 1. Left ventricular ejection fraction is mildly decreased, by visual estimate at 50%. 2. There is normal right ventricular global systolic function. QUANTITATIVE DATA SUMMARY: 2D MEASUREMENTS: Normal Ranges: Ao Root d: 3.90 cm (2.0-3.7cm) LAs: 3.01 cm (2.7-4.0cm) RVIDd: 2.17 cm (0.9-3.6cm) IVSd: 1.35 cm (0.6-1.1cm) LVPWd: 1.19 cm (0.6-1.1cm) LVIDd: 4.75 cm (3.9-5.9cm) LVIDs: 2.81 cm LV Mass Index: 121.5 g/m2 LVEDV Index: 24.96 ml/m2 LV % FS 40.8 % LEFT ATRIUM: Normal Ranges: LA Vol A4C: 66.5 ml (22+/-6mL/m2) LA Vol A2C: 64.2 ml LA Vol BP: 67.6 ml LA Vol Index A4C: 34.7ml/m2 LA Vol Index A2C: 33.5 ml/m2 LA Vol Index BP: 35.2 ml/m2 LA Vol A4C: 65.7 ml LA Vol A2C: 60.3 ml LA Vol Index BSA: 32.8 ml/m2 LV SYSTOLIC FUNCTION: Normal Ranges: EF-A4C View: 49 % (>=55%) EF-A2C View: 31 % EF-Biplane: 41 % EF-Visual: 50 % LV EF Reported: 50 % LV DIASTOLIC FUNCTION: Normal Ranges: MV Peak E: 0.48 m/s (0.7-1.2 m/s) MV Peak A: 0.41 m/s (0.42-0.7 m/s) E/A Ratio: 1.18 (1.0-2.2) MV e' 0.077 m/s (>8.0) MV lateral e' 0.10 m/s MV medial e' 0.05 m/s E/e' Ratio: 6.26 (<8.0) MITRAL VALVE: Normal Ranges: MV Vmax: 0.62 m/s (<=1.3m/s) MV peak P.5 mmHg (<5mmHg) MV mean P.8 mmHg (<48mmHg) MV VTI: 17.26 cm (10-13cm) MV DT: 134 msec (150-240msec) MV PHT: 43 msec (30-60msec) MVA by PHT: 5.12 cm2 (4-6cm2) MITRAL INSUFFICIENCY: Normal Ranges: MR Vmax: 246.56 cm/s AORTIC VALVE: Normal Ranges: AoV Vmax: 1.17 m/s (<=1.7m/s) AoV Peak P.5 mmHg (<20mmHg) AoV Mean P.1 mmHg (1.7-11.5mmHg) LVOT Max Christina: 0.72 m/s (<=1.1m/s) AoV VTI: 22.13 cm (18-25cm) LVOT VTI: 15.10 cm LVOT Diameter: 2.49 cm (1.8-2.4cm) AoV Area, VTI: 3.33 cm2 (2.5-5.5cm2) AoV Area,Vmax: 2.98 cm2 (2.5-4.5cm2) AoV Dimensionless Index: 0.68 AORTIC INSUFFICIENCY: AI Vmax: 3.62 m/s AI Half-time: 408 msec AI Decel Time: 1407 msec AI Decel Rate: 253.24 cm/s2 RIGHT VENTRICLE: RV Basal 3.23 cm RV Major 6.3 cm TAPSE: 23.1 mm RV s' 0.13 m/s TRICUSPID VALVE/RVSP: Normal Ranges: Peak TR Velocity: 2.70 m/s Est. RA Pressure: 5 mmHg RV Syst Pressure: 34 mmHg (< 30mmHg) IVC Diam: 1.49 cm PULMONIC VALVE: Normal Ranges: RVOT Vmax: 0.57 m/s (0.6-0.9m/s) PV Max Christina: 0.8 m/s (0.6-0.9m/s) PV Max P.3 mmHg PV Mean P.3 mmHg (more content not included)... [facility] Work Phone: [facility] Work Phone: PSA Totalon 08-06-2024 Prostate specific Ag [Mass/Vol] 1.3 ng/mL Normal 0.1-3.5 [facility] Comment on above: Result Comment: The concentration of PSA determined by different manufacturers can vary due to differences in assay methods and reagent specificity. Values obtained from different assay methods cannot be used interchangeably. The methodology used for this result was chemiluminescence using [facility] [facility]'s Access [employer] PSA reagent. Performed By: #### 1 [id number] #### [facility] [address] [place] [address] Ambulatory Visit Summaryon 0 08-05-2024 Ambulatory Visit Summary Ambulatory Visit Summary MARY MCADAMS :1955 Visit Date:08/05/2024 Ambulatory Visit Instructions Your Diagnosis Incomplete bladder emptying Elevated PSA BPH with urinary obstruction Your Care Team Attending Physician - Clinton NORMAN MD Primary Care Physician - ADAM DEL VALLE DO This Is Your Medications List finasteride (finasteride 5 mg Tab) tamsulosin (tamsulosin 0.4 mg Cap) Contact prescribing physician if questions or concerns acetaminophen (acetaminophen 500 mg Tab) albuterol (Ventolin HFA 90 mcg/inh Aerosol-Adpt) atorvastatin (atorvastatin 40 mg Tab) dofetilide (dofetilide 250 mcg oral capsule) fluticasone-salmeterol (Wixela Inhub 500 mcg-50 mcg inhalation powder) furosemide (furosemide 20 mg Tab) ipratropium metoprolol (metoprolol succinate 25 mg ER Tab) pantoprazole (Pantoprazole [address] Tab) potassium chloride (Potassium Chloride (Rst-Smna-Sio 10) 10 mEq oral tablet, extended release) rivaroxaban (Xarelto 20 mg oral tablet) sacubitril-valsartan (Entresto 24 mg-26 mg oral tablet) Procedures Performed Urodynamics (09/22/2020), Cystoscopy (08/24/2020), Colonoscopy, Hemorrhoidectomy. Discharge Vitals Temperature (Temporal Artery) 37 ???C Heart Rate (Peripheral) 94 Respiratory Rate 18 Blood Pressure 114/64 Height 182 cm Height 72 in Weight 63 kg Weight 138.891 lb BMI 19.02 What to do next You Need to Schedule the Following Appointments Follow Up with EMERSON SALMON, Clinton Hernandez, URL When: Where: [facility] [address], [place] [address] [phone] You Need to Complete the Following PSA Total, Blood, Routine collect, *Est. 02/05/25 +/- 28 day(s), Order for future visit, Lab Collect, Elevated PSA, Print Label By Order Location Medications What How Much When Instructions Unchanged finasteride (finasteride 5 mg Tab) 1 Tablets By Mouth Every day Unchanged tamsulosin (tamsulosin 0.4 mg Cap) 1 Capsules By Mouth 2 times a day Unchanged acetaminophen (acetaminophen 500 mg Tab) 2 Tablets By Mouth Every 6 hours as needed for for fever Contact prescribing physician if questions or concerns Unchanged albuterol (Ventolin HFA 90 mcg/ inh Aerosol-Adpt) Contact prescribing physician if questions or concerns Unchanged atorvastatin (atorvastatin 40 mg Tab) 1 Tablets Contact prescribing physician if questions or concerns Unchanged dofetilide (dofetilide 250 mcg oral capsule) 1 Capsules Contact prescribing physician if questions or concerns Unchanged fluticasone-salmeterol (Wixela Inhub 500 mcg-50 mcg inhalation powder) Contact prescribing physician if questions or concerns Unchanged furosemide (furosemide 20 mg Tab) 1 Tablets Contact prescribing physician if questions or concerns Unchanged ipratropium 4 times a day Contact prescribing physician if questions or concerns Unchanged metoprolol (metoprolol succinate 25 mg ER Tab) 1 Tablets By Mouth Every day Contact prescribing physician if questions or concerns Unchanged pantoprazole (Pantoprazole [address] Tab) Contact prescribing physician if questions or concerns Unchanged potassium chloride (Potassium Chloride (Tfo-Wvde-Wqb 10) 10 mEq oral tablet, extended release) 1 Tablets Contact prescribing physician if questions or concerns Unchanged rivaroxaban (Xarelto 20 mg oral tablet) 1 Tablets Contact prescribing physician if questions or concerns Unchanged sacubitril-valsartan (Entresto 24 mg-26 mg oral tablet) 1 Tablets By Mouth 2 times a day Contact prescribing physician if questions or concerns Allergies No Known Allergies Problems Ongoing - Any problem that you are currently receiving treatment for. BPH with urinary obstruction COPD (chronic obstructive pulmonary disease) Depression Elevated PSA Gout Hypertension Incomplete bladder emptying Leaking of urine Microscopic hematuria Nocturia Urgency of urination Urinary retention UTI (urinary tract infection) Weak urinary stream Patient Survey You may receive a survey via text or e-mail asking about your office visit. Please share your experience with us by completing your survey. We appreciate your feedback and thank you for choosing us for your care. Education Materials Benign Prostatic Hyperplasia Benign prostatic hyperplasia (BPH) [...] kidney (renal) failure. What are the causes? (more content not included)... Normal [facility] CHEMISTRYOrdered By: SYSTEM SYSTEM on 08-05-2024 Prostate specific Ag [Mass/Vol] 1.3 ng/mL Normal 0.1 - 3.5 ng/mL Remisol Chem Comment on above: Interpretive Data: T he concentration of PSA determined by different manufacturers can vary due to differences in assay methods and reagent specificity. Values obtained from different assay methods cannot be used interchangeably. The methodology used for this result was chemiluminescence using [facility]'s Access Hybritech PSA reagent. Urology Office/Clinic Noteon 08-05-2024 Urology Office/Clinic Note Urology Office/Clinic Note Chief Complaint 1 year with PSA HPI Staff 68yr old male pt here for 9mo f/u with PSA. CIC 1x per day. Pt now has an indwelling catheter. Catheter was [place] in [place] [facility] [place] and after discharge he was sent to [facility] and they wanted him to keep it indwelling until his appointment today in our office. Pt would like to have the catheter removed today and continue with CIC BID like he was doing before. Previous Dx: elevated PSA, BPH with urinary obstruction, UTI, incomplete bladder emptying, nocturia *Flomax 0.4mg bid, restarted finasteride 5mg qd at last OV PSA 01/30/20 - 1.71 (3.42 Finasteride) 02/07/22 - 1.39 (2.78 Finasteride) 09/02/22 - 1.00 (2.00 Finasteride) 07/31/23 - 4.21 Pt did not have a current PSA drawn. History of Present Illness Tests reviewed: reviewed [...] See HPI. Physical Exam Vitals & Measurements T: 37 ???C(Temporal Artery) HR: 94(Peripheral) RR: 18 BP: 114/64 HT: 72 in HT: 182 cm WT: 138.891 lb WT: 63 kg BMI: 19.02 General Appearance: alert, no distress, well nourished, well developed male. Assessment/Plan 1. Incomplete bladder emptying (R33.9: Retention of urine, unspecified) Was doing CIC 1x/day, output ~8-12oz. However had catheter placed [place] [facility] [place] for CHF ~3.5 wks ago) and still has in place. Prefers to continue to CIC vs maintain indwelling [place]. -Catheter to be removed IO. Advised to drink plenty of fluids. Call the office in the event that they are not able to void in the next 4-6 hrs. ER if they experience any severe bleeding, fever over 101, and/or shaking chills. 2. Elevated PSA (R97.20: Elevated prostate specific antigen [PSA]) PSA 01/30/20 - 1.71 (3.42 Finasteride) 02/07/22 - 1.39 (2.78 Finasteride) 09/02/22 - 1.00 (2.00 Finasteride) 07/31/23 - 4.21 No updated level on record. -PSA to be drawn IO today. Will call pt with results. -F/u in 6 mos w/ PSA 3. BPH with urinary obstruction (N40.1: Benign prostatic hyperplasia with lower urinary tract symptoms) S/p Cysto done 08/24/20 - bilobar obstruction. Urodynamics 09/22/20 - low pressure. Taking Tamsulosin 0.4mg bid. Restarted on Finasteride 5mg qd at prior OV. [place] he was voiding well prior to catheter placement. -Cont Tamsulosin bid and Finasteride qd. Pt to call for refills. Follow-up With When Contact Information EMERSON SALOMN, Clinton Hernandez, URL [facility] [address], [place] [address] [phone] Additional Instructions: 6 mos w/ PSA Patient Education Benign Prostatic Hyperplasia I, Rhonda Temple, personally scribed for Dr. Norman on 08/05/2024 14:39:35. . Documentation recorded by the scribe, Rhonda Temple, accurately reflects the services(s) I performed and decisions made by me. Authenticated by Dr. Norman on 08/05/2024 14:40:33. Problem List/Past Medical History Ongoing BPH with urinary obstruction COPD (chronic obstructive pulmonary disease) Depression Elevated PSA Gout Hypertension Incomplete bladder emptying Leaking of urine Microscopic hematuria Nocturia Urgency of urination Urinary retention UTI (urinary tract infection) Weak urinary stream Historical No qualifying data Procedure/Surgical History Urodynamics (09/22/2020), Cystoscopy (08/24/2020), Colonoscopy, Hemorrhoidectomy. Medications acetaminophen 500 mg Tab, 1000 mg= 2 tab(s), Oral, q6hr, PRN atorvastatin 40 mg Tab, 40 mg= 1 tab(s) dofetilide 250 mcg oral capsule, 250 mcg= 1 cap(s) Entresto 24 mg-26 mg oral tablet, 1 tab(s), Oral, BID finasteride 5 mg Tab, 5 mg= 1 tab(s), Oral, Daily, 3 refills furosemide 20 mg Tab, 20 mg= 1 tab(s) ipratropium, QID metoprolol succinate 25 mg ER Tab, 25 mg= 1 tab(s), Oral, Daily Pantoprazole [address] Tab Potassium Chloride (Kxw-Wzdn-Olc 10) 10 mEq oral tablet, extended release, 10 mEq= 1 tab(s) tamsulosin 0.4 mg Cap, 0.4 mg= 1 cap(s), Oral, BID, 3 refills Ventolin HFA 90 mcg/inh Aerosol-Adpt Wixela Inhub 500 mcg-50 mcg inhalation powder Xarelto 20 mg oral tablet, 20 mg= 1 tab(s) Allergies No Known Allergies Social History Tobacco Never (less than 100 in lifetime) Tobacco Use:. Never Smo (more content not included)... Normal [facility] Comment on above: Result Comment: Elec tronically Signed By: Clinton NORMAN MD\.br\Date and Time Signed: 08/05/24 14:40 EDT\.br\Electronically Co-Signed By: Rhonda Temple\.br\Date and Time Co-Signed: 08/05/24 14:39 EDT Basic Metabolic Panel 06-16 Anion gap [Moles/Vol] 13.9 mmol/L Normal 6.0-15.0 [facility] Comment on above: Performed By: #### B MP ####[address] [address] [facility] Calcium [Mass/Vol] 9.0 mg/dL Normal 8.6-10.3 [facility] Comment on above: Performed By: #### B MP ####[address] [address] [facility] Chloride [Moles/Vol] 99 mmol/L Normal 98-107 [facility] Comment on above: Performed By: #### B MP ####[address] [address] [facility] CO2 [Moles/Vol] 24.2 mmol/L Normal 21.0-31.0 [facility] Comment on above: Performed By: #### B MP ####[address] [address] [facility] Creatinine [Mass/Vol] 0.78 mg/dL Normal 0.70-1.30 [facility] Comment on above: Performed By: #### B MP ####[address] [address] [facility] Creatinine Clr Calc Pharmacy 81.23 Normal [facility] Comment on above: Result Comment: PERF ORMED BY:[place] [address] [address] [place] [place], [place] [phone] MEDICAL DIRECTORMALLORIE GARCIA M.D. Performed By: #### B MP ####[address] [address] [place] GFR/1.73 sq M.predicted MDRD (S/P/Bld) [Vol rate/Area] mL/min/{1.73_m2} Normal [facility] Comment on above: Performed By: #### B MP ####[address] Glucose [Mass/Vol] 86 mg/dL Normal 70-100 [facility] Comment on above: Result Comment: [facility] Glucose Reference Range is dependent on time and content of last meal. Glucose of more than 200 mg/dL in a nonstressed, ambulatory subject supports the diagnosis of Diabetes Mellitus. ADA recommended reference range Performed By: #### B MP ####[place] [id number] [facility] Potassium [Moles/Vol] 4.1 mmol/L Normal 3.5-5.1 [facility] Comment on above: Performed By: #### B MP ####[address] Sodium [Moles/Vol] 133 mmol/L Low 136-145 [facility] Comment on above: Performed By: #### B MP ####[place] [id number] [facility] Urea nitrogen [Mass/Vol] 16 mg/dL Normal 7-25 [facility] Comment on above: Performed By: #### B MP ####[place] [id number] [facility] Calcium [Mass/volume] in Ser um or PlasmaOrdered By: Ambrose Hsieh on 07-09-2024 Calcium [Mass/Vol] Calcium [Mass/volume ] in Serum or Plasma 8.6-10.3 [facility] Carbon dioxide, total [Moles /volume] in Serum or PlasmaOrdered By: Ambrose Hsieh on 07-09-2024 CO2 [Moles/Vol] Carbon dioxide, tota l [Moles/volume] in Serum or Plasma 21.0-31.0 [facility] Chloride [Moles/volume] in S christine or PlasmaOrdered By: Ambrose Hsieh on 07-09-2024 Chloride [Moles/Vol] Chloride [Moles/vol ume] in Serum or Plasma 98-107 [facility] Creatinine [Mass/volume] in Serum or PlasmaOrdered By: Ambrose Hsieh on 07-09-2024 Creatinine [Mass/Vol] Creatinine [Mass/v olume] in Serum or Plasma 0.70-1.30 [facility] ECG 12 lead ECGon 07-09-2024 ECG 12 lead ECG Normal [facility] Glucose [Mass/volume] in Ser um or PlasmaOrdered By: Ambrose Hsieh on 07-09-2024 Glucose [Mass/Vol] Glucose [Mass/volume ] in Serum or Plasma 70-100 [facility] Comment on above: ADA recommended refe rence rangeRandom Glucose Reference Range is dependent on time and content of last meal. Glucose of more than 200 mg/dL in a nonstressed, ambulatory subject supports the diagnosis of Diabetes Mellitus. No Panel InformationOrdered By: Ambrose Hsieh on 07-09-2024 Estimated GFR (CKD-EPI) > 60.0 mL/Min [facility] Creatinine Clearance (Chem 81.23 [facility] Potassium [Moles/volume] in Serum or PlasmaOrdered By: Ambrose Hsieh on 07-09-2024 Potassium [Moles/Vol] Potassium [Moles/v olume] in Serum or Plasma 3.5-5.1 [facility] Serum or plasma anion gap de terminationOrdered By: Ambrose Hsieh on 07-09-2024 Anion gap [Moles/Vol] Serum or plasma an ion gap determination 6.0-15.0 [facility] Sodium [Moles/volume] in Ser um or PlasmaOrdered By: Ambrose Hsieh on 07-09-2024 Sodium [Moles/Vol] Sodium [Moles/volume ] in Serum or Plasma Low 136-145 [facility] Urea nitrogen [Mass/volume] in Serum or PlasmaOrdered By: Ambrose Hsieh on 07-09-2024 Urea nitrogen [Mass/Vol] Urea nitrogen [Mass/volume] in Serum or Plasma 7-25 [facility] Basic Metabolic Panelon 06-16 Anion gap [Moles/Vol] 8.6 mmol/L Normal 6.0-15.0 [facility] Comment on above: Performed By: #### B MP ####[address] [address] [facility] Calcium [Mass/Vol] 8.9 mg/dL Normal 8.6-10.3 [facility] Comment on above: Performed By: #### B MP ####[place] [id number] [facility] Chloride [Moles/Vol] 101 mmol/L Normal 98-107 [facility] Comment on above: Performed By: #### B MP ####[place] [id number] [facility] CO2 [Moles/Vol] 27.7 mmol/L Normal 21.0-31.0 [facility] Comment on above: Performed By: #### B MP ####[place] [id number] [facility] Creatinine [Mass/Vol] 0.74 mg/dL Normal 0.70-1.30 [facility] Comment on above: Performed By: #### B MP ####[place] [id number] [facility] Creatinine Clr Calc Pharmacy 83.20 Normal [facility] Comment on above: Result Comment: PERF ORMED BY:[address] [place], [place] [phone] MEDICAL DIRECTORMALLORIE GARCIA M.D. Performed By: #### B MP ####[place] [id number] [facility] GFR/1.73 sq M.predicted MDRD (S/P/Bld) [Vol rate/Area] mL/min/{1.73_m2} Normal [facility] Comment on above: Performed By: #### B MP ####[place] [address] [facility] Glucose [Mass/Vol] 93 mg/dL Normal 70-100 [facility] Comment on above: Result Comment: [facility] Glucose Reference Range is dependent on time and content of last meal. Glucose of more than 200 mg/dL in a nonstressed, ambulatory subject supports the diagnosis of Diabetes Mellitus. ADA recommended reference range Performed By: #### B MP ####[place] [id number] [facility] Potassium [Moles/Vol] 4.3 mmol/L Normal 3.5-5.1 [facility] Comment on above: Performed By: #### B MP ####[place] [id number] [facility] Sodium [Moles/Vol] 133 mmol/L Low 136-145 [facility] Comment on above: Performed By: #### B MP ####[place] [address] [facility] Urea nitrogen [Mass/Vol] 13 mg/dL Normal 7-25 [facility] Comment on above: Performed By: #### B MP ####[place] [id number] [facility] ECG 12 lead ECGon 07-08-2024 ECG 12 lead ECG Normal [facility] Basic Metabolic Panelon 06-16 Anion gap [Moles/Vol] 9.4 mmol/L Normal 6.0-15.0 [facility] Comment on above: Performed By: #### B MP, MG ####[place] [id number] [facility] Calcium [Mass/Vol] 9.1 mg/dL Normal 8.6-10.3 [facility] Comment on above: Performed By: #### B MP, MG ####[place] [id number] [facility] Chloride [Moles/Vol] 103 mmol/L Normal 98-107 [facility] Comment on above: Performed By: #### B MP, MG ####[place] [address] [facility] CO2 [Moles/Vol] 27.1 mmol/L Normal 21.0-31.0 [facility] Comment on above: Performed By: #### B MP, MG ####[place] [id number] [facility] Creatinine [Mass/Vol] 0.82 mg/dL Normal 0.70-1.30 [facility] Comment on above: Performed By: #### B MP, MG ####[address] Creatinine Clr Calc Pharmacy 79.25 Normal [facility] Comment on above: Performed By: #### B MP, MG ####[address] GFR/1.73 sq M.predicted MDRD (S/P/Bld) [Vol rate/Area] mL/min/{1.73_m2} Normal [facility] Comment on above: Performed By: #### B MP, MG ####[address] Glucose [Mass/Vol] 88 mg/dL Normal 70-100 [facility] Comment on above: Result Comment: [facility] Glucose Reference Range is dependent on time and content of last meal. Glucose of more than 200 mg/dL in a nonstressed, ambulatory subject supports the diagnosis of Diabetes Mellitus. ADA recommended reference range Performed By: #### B MP, MG ####[address] Potassium [Moles/Vol] 4.5 mmol/L Normal 3.5-5.1 [facility] Comment on above: Performed By: #### B MP, MG ####[address] Sodium [Moles/Vol] 135 mmol/L Low 136-145 [facility] Comment on above: Performed By: #### B MP, MG ####[place] [id number] [facility] Urea nitrogen [Mass/Vol] 13 mg/dL Normal 7-25 [facility] Comment on above: Performed By: #### B MP, MG ####[place] [id number] [facility] ECG 12 lead ECGon 07-07-2024 ECG 12 lead ECG Normal [facility] Magnesiumon 07-07-2024 Magnesium [Mass/Vol] 1.6 mg/dL Low 1.9-2.7 [facility] Comment on above: Result Comment: PERF ORMED BY:[address] [place], [place] [phone] MEDICAL DIRECTORMALLORIE GARCIA M.D. Performed By: #### B MP, MG ####[place] [id number] [facility] Magnesium [Mass/volume] in S christine or PlasmaOrdered By: Ambrose Hsieh on 07-07-2024 Magnesium [Mass/Vol] Magnesium [Mass/vol ume] in Serum or Plasma Low 1.9-2.7 [facility] ECG 12 lead ECGon 07-06-2024 ECG 12 lead ECG Normal [facility] Erythrocyte distribution wid th Auto (RBC) [Ratio]Ordered By: Ambrose Hsieh on 07-06-2024 Erythrocyte distribution width (RBC) [Ratio] Erythrocyte distribution width [Ratio] by Automated count High 12.0-14.8 [facility] Hematocrit Auto (Bld) [Volum e fraction]Ordered By: Ambrose Hsieh on 07-06-2024 Hematocrit (Bld) [Volume fraction] Hematocrit [Volume Fraction] of Blood by Automated count Low 38.8-50.0 [facility] Hemoglobin [Mass/volume] in BloodOrdered By: Ambrose Hsieh on 07-06-2024 Hemoglobin (Bld) [Mass/Vol] Hemoglobin [Mass/volume] in Blood Low 13.0-17.0 [facility] Hemogram CBC Without Diffon 07-06-2024 Erythrocyte distribution width (RBC) [Ratio] 16.0 % High 12.0-14.8 [facility] Comment on above: Performed By: #### C BCNO ####[place] [id number] [facility] Hematocrit (Bld) [Volume fraction] 24.3 % Low 38.8-50.0 [facility] Comment on above: Performed By: #### C BCNO ####[place] [id number] [facility] Hemoglobin (Bld) [Mass/Vol] 8.2 g/dL Low 13.0-17.0 [facility] Comment on above: Performed By: #### C BCNO ####[address] MCH (RBC) [Entitic mass] 27.9 pg Normal 27.5-35.2 [facility] Comment on above: Performed By: #### C BCNO ####[address] MCV (RBC) [Entitic vol] 83.1 fL Low 83.5-101 T [facility] Comment on above: Performed By: #### C BCNO ####[address] Mean Corpuscular HGB Conc 33.6 g/dL Normal 32.5-35.6 [facility] Comment on above: Performed By: #### C BCNO ####[address] Platelet mean volume (Bld) [Entitic vol] 7.2 fL Normal 6.6-10.1 [facility] Comment on above: Result Comment: PERF ORMED BY:[address] [place], [place] [phone] MEDICAL DIRECTORMALLORIE GARCIA M.D. Performed By: #### C BCNO ####[address] Platelets (Bld) [#/Vol] 294 10*3/uL Normal 150-450 [facility] Comment on above: Performed By: #### C BCNO ####[address] RBC (Bld) [#/Vol] 2.93 10*6/uL Low 3.90-5.60 [facility] Comment on above: Performed By: #### C BCNO ####[address] WBC (Bld) [#/Vol] 5.2 10*3/uL Normal 4.1-10.5 [facility] Comment on above: Performed By: #### C BCNO ####[facility] [id number] [place] [address] [facility] Leukocytes [#/volume] correc junior for nucleated erythrocytes in Blood by Automated counOrdered By: Ambrose Hsieh on 07-06-2024 WBC corrected for nucl RBC Auto (Bld) [#/Vol] Leukocytes [#/volume] corrected for nucleated erythrocytes in Blood by Automated coun 4.1-10.5 [facility] MCH Auto (RBC) [Entitic mass ]Ordered By: Ambrose Hsieh on 07-06-2024 MCH (RBC) [Entitic mass] MCH [Entitic mass] by Automated count 27.5-35.2 [facility] MCHC Auto (RBC) [Mass/Vol]Or dered By: Ambrose Hsieh on 07-06-2024 MCHC (RBC) [Mass/Vol] MCHC [Mass/volume] by Automated count 32.5-35.6 [facility] MCV Auto (RBC) [Entitic vol] Ordered By: Ambrose Hsieh on 07-06-2024 MCV (RBC) [Entitic vol] MCV [Entitic vol ume] by Automated count Low 83.5-101 [facility] Platelet mean volume Auto (B ld) [Entitic vol]Ordered By: Ambrose Hsieh on 07-06-2024 Platelet mean volume (Bld) [Entitic vol] Platelet mean volume [Entitic volume] in Blood by Automated count 6.6-10.1 [facility] Platelets Auto (Bld) [#/Vol] Ordered By: Ambrose Hsieh on 07-06-2024 Platelets (Bld) [#/Vol] Platelets [#/vol ume] in Blood by Automated count 150-450 [facility] RBC Auto (Bld) [#/Vol]Ordere d By: Ambrose Hsieh on 07-06-2024 RBC (Bld) [#/Vol] Erythrocytes [#/volu me] in Blood by Automated count Low 3.90-5.60 [facility] ECG 12 lead ECGon 07-05-2024 ECG 12 lead ECG Normal [facility] Hemogram CBC Without Diffon 07-05-2024 Erythrocyte distribution width (RBC) [Ratio] 15.9 % High 12.0-14.8 [facility] Comment on above: Performed By: #### C BCNO ####[place] [id number] [facility] Hematocrit (Bld) [Volume fraction] 24.8 % Low 38.8-50.0 [facility] Comment on above: Performed By: #### C BCNO ####[place] [id number] [facility] Hemoglobin (Bld) [Mass/Vol] 8.4 g/dL Low 13.0-17.0 [facility] Comment on above: Performed By: #### C BCNO ####[place] [id number] [facility] MCH (RBC) [Entitic mass] 28.0 pg Normal 27.5-35.2 [facility] Comment on above: Performed By: #### C BCNO ####[place] [id number] [facility] MCV (RBC) [Entitic vol] 83.0 fL Low 83.5-101 T [facility] Comment on above: Performed By: #### C BCNO ####[address] [address] [facility] Mean Corpuscular HGB Conc 33.7 g/dL Normal 32.5-35.6 [facility] Comment on above: Performed By: #### C BCNO ####[address] [address] [facility] Platelet mean volume (Bld) [Entitic vol] 7.0 fL Normal 6.6-10.1 [facility] Comment on above: Result Comment: PERF ORMED BY:[address] [place], [place] [phone] MEDICAL DIRECTORMALLORIE GARCIA M.D. Performed By: #### C BCNO ####[facility] [place] [address] [facility] Platelets (Bld) [#/Vol] 277 10*3/uL Normal 150-450 [facility] Comment on above: Performed By: #### C BCNO ####[place] [id number] [place] [address] [facility] RBC (Bld) [#/Vol] 2.99 10*6/uL Low 3.90-5.60 [facility] Comment on above: Performed By: #### C BCNO ####[place] [id number] [place] [address] [facility] WBC (Bld) [#/Vol] 4.3 10*3/uL Normal 4.1-10.5 [facility] Comment on above: Performed By: #### C BCNO ####[place] [id number] [facility] Amphetamine Screen Ql (U)Ord ered By: Susanne Motley on 07-04-2024 Amphetamines Ql (U) Amphetamines screen Negativ e [facility] Appearance of UrineOrdered B y: Susanne Motley on 07-04-2024 Appearance (U) Urine appearance Abnormal Clear [facility] Bacteria [Presence] in Urine by AutomatedOrdered By: Susanne Motley on 07-04-2024 Bacteria Auto Ql (U) Bacteria [Presence] in Urine by Automated High None Seen [facility] Barbiturates [Presence] in U rine by Screen methodOrdered By: Susanne Motley on 07-04-2024 Barbiturates Screen Ql (U) Barbiturates [Presence] in Urine by Screen method Negative [facility] Basic Metabolic Panelon 06-16 Anion gap [Moles/Vol] 13.7 mmol/L Normal 6.0-15.0 Th e [facility] Comment on above: Performed By: #### M G, CBC, BMP, PAB ####[place] [id number] [place] [id number] [facility] Calcium [Mass/Vol] 8.9 mg/dL Normal 8.6-10.3 [facility] Comment on above: Performed By: #### M G, CBC, BMP, PAB ####[place] [id number] [place] Chloride [Moles/Vol] 103 mmol/L Normal 98-107 [facility] Comment on above: Performed By: #### M G, CBC, BMP, PAB ####[place] [id number] [facility] CO2 [Moles/Vol] 22.1 mmol/L Normal 21.0-31.0 [facility] Comment on above: Performed By: #### M G, CBC, BMP, PAB ####[place] [id number] [facility] Creatinine [Mass/Vol] 0.85 mg/dL Normal 0.70-1.30 [facility] Comment on above: Performed By: #### M G, CBC, BMP, PAB ####[place] [id number] [place] Creatinine Clr Calc Pharmacy 73.90 Normal [facility] Comment on above: Performed By: #### M G, CBC, BMP, PAB ####[place] [id number] [place] GFR/1.73 sq M.predicted MDRD (S/P/Bld) [Vol rate/Area] mL/min/{1.73_m2} Normal [facility] Comment on above: Performed By: #### M G, CBC, BMP, PAB ####[place] [id number] [facility] Glucose [Mass/Vol] 77 mg/dL Normal 70-100 [facility] Comment on above: Result Comment: [place] Glucose Reference Range is dependent on time and content of last meal. Glucose of more than 200 mg/dL in a nonstressed, ambulatory subject supports the diagnosis of Diabetes Mellitus. ADA recommended reference range Performed By: #### M G, CBC, BMP, PAB ####[place] [id number] [facility] Potassium [Moles/Vol] 3.8 mmol/L Normal 3.5-5.1 [facility] Comment on above: Performed By: #### M G, CBC, BMP, PAB ####[facility] [address] [place] [id number] [facility] Sodium [Moles/Vol] 135 mmol/L Low 136-145 [facility] Comment on above: Performed By: #### M G, CBC, BMP, PAB ####[facility] [address] [place] [id number] [facility] Urea nitrogen [Mass/Vol] 12 mg/dL Normal 7-25 [facility] Comment on above: Performed By: #### M G, CBC, BMP, PAB ####[facility] [address] [place] [id number] [facility] Basophils Auto (Bld) [#/Vol] Ordered By: Maricruz Godoy on 07-04-2024 Basophils (Bld) [#/Vol] Automated basophil count 0.0-0.2 [facility] Basophils/100 WBC Auto (Bld) Ordered By: Maricruz Godoy on 07-04-2024 Basophils/100 WBC (Bld) Automated basophil % . [facility] Benzodiazepines Screen Ql (U )Ordered By: Susanne Motley on 07-04-2024 Benzodiazepines Ql (U) Benzodiazepines [ Presence] in Urine by Screen method Negative [facility] Benzoylecgonine [Presence] i n Urine by Screen methodOrdered By: Susanne Motley on 07-04-2024 Benzoylecgonine Screen Ql (U) Benzoylecgonine [Presence] in Urine by Screen method Negative [facility] Bilirubin Test strip Ql (U)O rdered By: Susanne Motley on 07-04-2024 Bilirubin Ql (U) Bilirubin.total [Pre sence] in Urine by Test strip Negative [facility] Cannabinoids [Presence] in U rine by Screen methodOrdered By: Susanne Motley on 07-04-2024 Cannabinoids Screen Ql (U) Cannabinoids [Presence] in Urine by Screen method Negative [facility] Comment on above: These are unconfirme d results and should not be used for legal purposes. Drug Cut-Off Concentration: AMPH 1000 ng/mL TAHIRA 200 ng/mL KEHINDE 200 ng/mL COCM 300 ng/mL OP 300 ng/mL PCP 25 ng/mL THC 20 ng/mL Color Auto (U)Ordered By: Brenna marycruz Motley on 07-04-2024 Color (U) Color of Urine by Auto Yellow [facility] Complete Blood Count Auto Di ffon 07-04-2024 Basophils (Bld) [#/Vol] 0.0 10*3/uL Normal 0.0-0.2 [facility] Comment on above: Result Comment: PERF ORMED BY:[address] [place], [place] [phone] MEDICAL DIRECTORMALLORIE GARCIA M.D. Performed By: #### M G, CBC, BMP, PAB ####[address] Basophils/100 WBC (Bld) 0.5 % Normal . T lilia [facility] Comment on above: Performed By: #### M G, CBC, BMP, PAB ####[address] Eosinophils (Bld) [#/Vol] 0.2 10*3/uL Normal 0.0-0.45 [facility] Comment on above: Performed By: #### M G, CBC, BMP, PAB ####[address] Eosinophils/100 WBC (Bld) 3.2 % Normal . [facility] Comment on above: Performed By: #### M G, CBC, BMP, PAB ####[address] Erythrocyte distribution width (RBC) [Ratio] 16.2 % High 12.0-14.8 [facility] Comment on above: Performed By: #### M G, CBC, BMP, PAB ####[address] Hematocrit (Bld) [Volume fraction] 26.0 % Low 38.8-50.0 [facility] Comment on above: Performed By: #### M G, CBC, BMP, PAB ####[place] [id number] [facility] Hemoglobin (Bld) [Mass/Vol] 8.8 g/dL Low 13.0-17.0 [facility] Comment on above: Performed By: #### M G, CBC, BMP, PAB ####[address] Lymphocytes (Bld) [#/Vol] 0.7 10*3/uL Low 1.00-4.8 [facility] Comment on above: Performed By: #### M G, CBC, BMP, PAB ####[address] Lymphocytes/100 WBC (Bld) 12.4 % Normal . [facility] Comment on above: Performed By: #### M G, CBC, BMP, PAB ####[address] MCH (RBC) [Entitic mass] 28.0 pg Normal 27.5-35.2 [facility] Comment on above: Performed By: #### M G, CBC, BMP, PAB ####[address] MCV (RBC) [Entitic vol] 83.4 fL Low 83.5-101 T [facility] Comment on above: Performed By: #### M G, CBC, BMP, PAB ####[address] Mean Corpuscular HGB Conc 33.6 g/dL Normal 32.5-35.6 [facility] Comment on above: Performed By: #### M G, CBC, BMP, PAB ####[address] Monocytes (Bld) [#/Vol] 0.7 10*3/uL Normal 0.0-0.8 [facility] Comment on above: Performed By: #### M G, CBC, BMP, PAB ####[address] Monocytes/100 WBC (Bld) 12.3 % Normal . T [facility] Comment on above: Performed By: #### M G, CBC, BMP, PAB ####[address] Neutrophils (Bld) [#/Vol] 3.9 10*3/uL Normal 1.8-7.7 [facility] Comment on above: Performed By: #### M G, CBC, BMP, PAB ####[address] Neutrophils/100 WBC (Bld) 71.6 % Normal . [facility] Comment on above: Performed By: #### M G, CBC, BMP, PAB ####[address] NRBC% 0.1 /100{WBC} Normal 0-0.5 [facility] Comment on above: Performed By: #### M G, CBC, BMP, PAB ####[address] Platelet mean volume (Bld) [Entitic vol] 7.6 fL Normal 6.6-10.1 [facility] Comment on above: Performed By: #### M G, CBC, BMP, PAB ####[address] Platelets (Bld) [#/Vol] 296 10*3/uL Normal 150-450 [facility] Comment on above: Performed By: #### M G, CBC, BMP, PAB ####[address] RBC (Bld) [#/Vol] 3.12 10*6/uL Low 3.90-5.60 [facility] Comment on above: Performed By: #### M G, CBC, BMP, PAB ####[address] WBC (Bld) [#/Vol] 5.4 10*3/uL Normal 4.1-10.5 [facility] Comment on above: Performed By: #### M G, CBC, BMP, PAB ####[address] [place] [address] [facility] Crystals [Presence] in Urine by AutomatedOrdered By: Susanne Motley on 07-04-2024 Crystals Auto Ql (U) Crystals [Presence] in Urine by Automated [facility] Dipstick and Microscopicon 0 07-04-2024 Appearance (U) Turbid Critically abnormal Clear [facility] Comment on above: Order Comment: Name Collection Type:: Straight Catheter Performed By: #### C UU, ADDONUAPLUS ####[place] [id number] [facility] Bacteria,Urine 4+ High None Seen [facility] Comment on above: Order Comment: Name Collection Type:: Straight Catheter Performed By: #### C UU, ADDONUAPLUS ####[address] Bilirubin,Urine Negative Normal Negative [facility] Comment on above: Order Comment: Name Collection Type:: Straight Catheter Performed By: #### C UU, ADDONUAPLUS ####[place] [id number] [facility] Budding Yeast,Urine 3+ High None Seen [facility] Comment on above: Order Comment: Name Collection Type:: Straight Catheter Performed By: #### C UU, ADDONUAPLUS ####[place] [id number] [facility] Color (U) Yellow Normal Yellow [facility] Comment on above: Order Comment: Name Collection Type:: Straight Catheter Performed By: #### C UU, ADDONUAPLUS ####[place] [id number] [facility] Glucose Ql (U) Normal Normal Normal [facility] Comment on above: Order Comment: Name Collection Type:: Straight Catheter Performed By: #### C UU, ADDONUAPLUS ####[address] [address] [facility] Hyaline Casts,Urine None Normal 0-8 [facility] Comment on above: Order Comment: Name Collection Type:: Straight Catheter Performed By: #### C UU, ADDONUAPLUS ####[address] [address] [facility] Ketones Ql (U) Negative Normal Negative [facility] Comment on above: Order Comment: Name Collection Type:: Straight Catheter Performed By: #### C UU, ADDONUAPLUS ####[address] [address] [facility] Leukocyte esterase Test strip Ql (U) 4+ High Negative [facility] Comment on above: Order Comment: Name Collection Type:: Straight Catheter Performed By: #### C UU, ADDONUAPLUS ####[address] [address] [facility] Nitrite,Urine Negative Normal Negative [facility] Comment on above: Order Comment: Name Collection Type:: Straight Catheter Performed By: #### C UU, ADDONUAPLUS ####[address] [address] [facility] Non-Squamous Epithelial Cell,U 3-4 High None Seen [facility] Comment on above: Order Comment: Name Collection Type:: Straight Catheter Performed By: #### C UU, ADDONUAPLUS ####[address] [address] [facility] Occult Blood,Urine 3+ High Negative [facility] Comment on above: Order Comment: Name Collection Type:: Straight Catheter Result Comment: PERF ORMED BY:[address] [place], [place] [phone] MEDICAL DIRECTORMALLORIE GARCIA M.D. Performed By: #### C UU, ADDONUAPLUS ####[address] [address] [facility] Othe Crystals,Urine 1+ Normal [facility] Comment on above: Order Comment: Name Collection Type:: Straight Catheter Performed By: #### C UU, ADDONUAPLUS ####[address] [address] [facility] pH (U) 6.0 [pH] Normal 5.0-9.0 [facility] Comment on above: Order Comment: Name Collection Type:: Straight Catheter Performed By: #### C UU, ADDONUAPLUS ####[place] [id number] [facility] Protein (U) [Mass/Vol] 30 mg/dL High Negative Th e [facility] Comment on above: Order Comment: Name Collection Type:: Straight Catheter Performed By: #### C UU, ADDONUAPLUS ####[address] RBC,Urine Innumerable High 0-4 [facility] Comment on above: Order Comment: Name Collection Type:: Straight Catheter Performed By: #### C UU, ADDONUAPLUS ####[address] Specificy Mcintosh,Urine 1.036 High 1.00 1-1.03 0 [facility] Comment on above: Order Comment: Name Collection Type:: Straight Catheter Performed By: #### C UU, ADDONUAPLUS ####[address] Sperm,Urine 5-9 High 0-2 [facility] Comment on above: Order Comment: Name Collection Type:: Straight Catheter Result Comment: PERF ORMED BY:[address] [place], [place] [phone] MEDICAL DIRECTORMOPAULINA GARCIA M.D. Performed By: #### C UU, ADDONUAPLUS ####[address] Urobilinogen,Urine Normal Normal Normal [facility] Comment on above: Order Comment: Name Collection Type:: Straight Catheter Performed By: #### C UU, ADDONUAPLUS ####[address] WBC CLUMP, Urine Many High None Seen [facility] Comment on above: Order Comment: Name Collection Type:: Straight Catheter Performed By: #### C UU, ADDONUAPLUS ####[place] [id number] [facility] WBC,Urine Innumerable High 0-4 [facility] Comment on above: Order Comment: Name Collection Type:: Straight Catheter Performed By: #### C UU, ADDONUAPLUS ####[address] [address] [facility] Drug Screen,Urineon 07-04-19 Amphetamine Screen,Urine Negative Normal Negative [facility] Comment on above: Performed By: #### U RDS ####[address] [address] [facility] Barbiturate Screen,Urine Negative Normal Negative [facility] Comment on above: Performed By: #### U RDS ####[address] [address] [facility] Benzodiazepines Screen,Urine Negative Normal Negative [facility] Comment on above: Performed By: #### U RDS ####[place] [id number] [facility] Cannabinoid Screen,Urine Negative Normal Negative [facility] Comment on above: Result Comment: Thes e are unconfirmed results and should not be used for legal purposes. Drug Cut-Off Concentration: AMPH 1000 ng/mL TAHIRA 200 ng/mL KEHINDE 200 ng/mL COCM 300 ng/mL OP 300 ng/mL PCP 25 ng/mL THC 20 ng/mLPERFORMED BY:[address] [place] [phone] MEDICAL DIRECTORMALLORIE GARCIA M.D. Performed By: #### U RDS ####[address] [address] [facility] Cocaine Screen,Urine Negative Normal Negative [facility] Comment on above: Performed By: #### U RDS ####[address] [address] [facility] Opiate Screen,Urine Negative Normal Negative [facility] Comment on above: Performed By: #### U RDS ####[address] [address] [facility] Phencyclidine Screen,Urine Negative Normal Negative [facility] Comment on above: Performed By: #### U RDS ####[address] [place] [address] [facility] ECG 12 lead ECGon 07-04-2024 ECG 12 lead ECG Normal [facility] Eosinophils Auto (Bld) [#/Vo l]Ordered By: Maricruz Godoy on 07-04-2024 Eosinophils (Bld) [#/Vol] Automated eosinophil count 0.0-0.45 [facility] Eosinophils/100 WBC Auto (Bl d)Ordered By: Maricruz Godoy on 07-04-2024 Eosinophils/100 WBC (Bld) Automated eosinophil % . [facility] Epithelial cells.non-squamou s [#/area] in Urine sediment by Automated countOrdered By: Susanne Motley on 07-04-2024 Epithelial cells.non-squamous Auto (Urine sed) [#/Area] Epithelial cells.non-squamous [#/area] in Urine sediment by Automated count High None Seen [facility] Epithelial cells.squamous [# /area] in Urine sediment by Automated countOrdered By: Susanne Motley on 07-04-2024 Epithelial cells.squamous Auto (Urine sed) [#/Area] Epithelial cells.squamous [#/area] in Urine sediment by Automated count [facility] Erythrocytes [#/area] in Uri ne sediment by Automated countOrdered By: Susanne Motley on 07-04-2024 RBC Auto (Urine sed) [#/Area] Erythrocytes [#/area] in Urine sediment by Automated count High 0-4 [facility] Glucose [Mass/volume] in Uri ne by Test stripOrdered By: Susanne Motley on 07-04-2024 Glucose Test strip (U) [Mass/Vol] Glucose [Mass/volume] in Urine by Test strip Normal [facility] Hemoglobin Test strip Ql (U) Ordered By: Susanne Motley on 07-04-2024 Hemoglobin Ql (U) Hemoglobin [Presence ] in Urine by Test strip High Negative [facility] Hyaline casts [#/area] in Ur ine sediment by Automated countOrdered By: Susanne Motley on 07-04-2024 Hyaline casts Auto (Urine sed) [#/Area] Hyaline casts [#/area] in Urine sediment by Automated count 0-8 [facility] Ketones Test strip Ql (U)Ord ered By: Susanne Motley on 07-04-2024 Ketones Ql (U) Ketones [Presence] i n Urine by Test strip Negative [facility] Leukocyte clumps [Presence] in Urine by AutomatedOrdered By: Susanne Motley on 07-04-2024 Leukocyte clumps Auto Ql (U) Leukocyte clumps [Presence] in Urine by Automated High None Seen [facility] Leukocyte esterase [Presence ] in Urine by Test stripOrdered By: Susanne Motley on 07-04-2024 Leukocyte esterase Test strip Ql (U) Leukocyte esterase [Presence] in Urine by Test strip High Negative [facility] Leukocytes [#/area] in Urine sediment by Automated countOrdered By: Susanne Motley on 07-04-2024 WBC Auto (Urine sed) [#/Area] Leukocytes [#/area] in Urine sediment by Automated count High 0-4 [facility] Lymphocytes Auto (Bld) [#/Vo l]Ordered By: Maricruz Godoy on 07-04-2024 Lymphocytes (Bld) [#/Vol] Lymphocytes [#/volume] in Blood by Automated count Low 1.00-4.8 [facility] Lymphocytes/100 WBC Auto (Bl d)Ordered By: Maricruz Godoy on 07-04-2024 Lymphocytes/100 WBC (Bld) Lymphocytes/100 leukocytes in Blood by Automated count . [facility] Magnesiumon 07-04-2024 Magnesium [Mass/Vol] 1.9 mg/dL Normal 1.9-2.7 [facility] Comment on above: Performed By: #### M G, CBC, BMP, PAB ####[facility] [address] [place] [address] [facility] Monocytes Auto (Bld) [#/Vol] Ordered By: Maricruz Godoy on 07-04-2024 Monocytes (Bld) [#/Vol] Automated blood monocyte count 0.0-0.8 [facility] Monocytes/100 WBC Auto (Bld) Ordered By: Maricruz Godoy on 07-04-2024 Monocytes/100 WBC (Bld) Automated monocyte % . [facility] Neutrophils Auto (Bld) [#/Vo l]Ordered By: Maricruz Godoy on 07-04-2024 Neutrophils (Bld) [#/Vol] Neutrophils [#/volume] in Blood by Automated count 1.8-7.7 [facility] Neutrophils/100 WBC Auto (Bl d)Ordered By: Maricruz Godoy on 07-04-2024 Neutrophils/100 WBC (Bld) Automated neutrophil % . [facility] Nitrite Test strip Ql (U)Ord ered By: Susanne Motley on 07-04-2024 Nitrite Ql (U) Nitrite [Presence] i n Urine by Test strip Negative [facility] Nucleated erythrocytes [Pres ence] in Blood by Automated countOrdered By: Maricruz Godoy on 07-04-2024 Nucleated RBC Auto Ql (Bld) Nucleated erythrocytes [Presence] in Blood by Automated count 0-0.5 [facility] Opiates [Presence] in Urine by Screen methodOrdered By: Susanne Motley on 07-04-2024 Opiates Screen Ql (U) Opiates [Presence] in Urine by Screen method Negative [facility] Phencyclidine Screen Ql (U)O rdered By: Susanne Motley on 07-04-2024 Phencyclidine Ql (U) Phencyclidine [Pres ence] in Urine by Screen method Negative [facility] Prealbuminon 07-04-2024 Prealbumin [Mass/Vol] 4.2 mg/dL Low 17.0-34.0 [facility] Comment on above: Result Comment: PERF ORMED BY:[address] [place], [place] [phone] MEDICAL DIRECTORMALLORIE GARCIA M.D. Performed By: #### M G, CBC, BMP, PAB ####[facility] [place] [address] [facility] Prealbumin [Mass/volume] in Serum or PlasmaOrdered By: Maricruz Godoy on 07-04-2024 Prealbumin [Mass/Vol] Prealbumin [Mass/v olume] in Serum or Plasma Low 17.0-34.0 [facility] Protein Test strip (U) [Mass /Vol]Ordered By: Susanne Motley on 07-04-2024 Protein (U) [Mass/Vol] Protein [Mass/vol ume] in Urine by Test strip High Negative [facility] Specific gravity Test strip (U) [Rel density]Ordered By: Susanne Motley on 07-04-2024 Specific gravity (U) [Rel density] Specific gravity of Urine by Test strip High 1.001-1.03 0 [facility] Spermatozoa [#/area] in Urin e sediment by Automated countOrdered By: Susanne Motley on 07-04-2024 Spermatozoa Auto (Urine sed) [#/Area] Spermatozoa [#/area] in Urine sediment by Automated count High 0-2 [facility] US venous duplex LE BIon US venous duplex LE BI Normal Th e [facility] Urine Cultureon 07-04-2024 Bacteria identified Cx Nom (U) Normal [facility] Comment on above: Performed By: #### C UU, ADDONUAPLUS ####[place] [address] [place] [address] [facility] Urine cultureOrdered By: Jose Rafael Motley on 07-04-2024 Bacteria identified Cx Nom (U) Group B Strep (Streptococcus agalactiae) Abnormal [facility] Urobilinogen Test strip (U) [Mass/Vol]Ordered By: Susanne Motley on 07-04-2024 Urobilinogen (U) [Mass/Vol] Urobilinogen [Mass/volume] in Urine by Test strip Normal [facility] WBC Auto (Bld) [#/Vol]Ordere d By: Maricruz Godoy on 07-04-2024 WBC (Bld) [#/Vol] Leukocytes [#/volume ] in Blood by Automated count 4.1-10.5 [facility] Yeast.budding [Presence] in Urine by Computer assisted methodOrdered By: Susanne Motley on 07-04-2024 Yeast.budding Computer assisted Ql (U) Yeast.budding [Presence] in Urine by Computer assisted method High None Seen [facility] pH Test strip (U)Ordered By: Susanne Motley on 07-04-2024 pH (U) pH of Urine by Test strip 5.0-9.0 [facility] Acetaminophenon 07-03-2024 Acetaminophen [Mass/Vol] 0.1 ug/mL Low 10.0-30.0 [facility] Comment on above: Result Comment: PERF ORMED BY:[place] [address] [address] [place], [place] [id number] MEDICAL DIRECTORMALLORIE GARCIA M.D. Performed By: #### D DIMER, ANGELITA, TSH3, ACET, T4F, ETOH, MG, HS TROP, PTT ####[facility] [id number] [place] [address] [facility] Acetaminophen [Mass/volume] in Serum or PlasmaOrdered By: Susanne Motley on 07-03-2024 Acetaminophen [Mass/Vol] Acetaminophen [Mass/volume] in Serum or Plasma Low 10.0-30.0 [facility] Alanine aminotransferase [En zymatic activity/volume] in Serum or PlasmaOrdered By: Susanne Motley on 07-03-2024 ALT [Catalytic activity/Vol] Alanine aminotransferase [Enzymatic activity/volume] in Serum or Plasma 7-52 [facility] Albumin [Mass/volume] in Ser um or Plasma by Bromocresol green (BCG) dye binding methoOrdered By: Susanne Motley on 07-03-2024 Albumin BCG dye [Mass/Vol] Albumin [Mass/volume] in Serum or Plasma by Bromocresol green (BCG) dye binding metho 3.5-5.7 [facility] Alkaline phosphatase [Enzyma tic activity/volume] in Serum or PlasmaOrdered By: Susanne Motley on 07-03-2024 ALP [Catalytic activity/Vol] Alkaline phosphatase [Enzymatic activity/volume] in Serum or Plasma High 34-104 [facility] Aspartate aminotransferase [ Enzymatic activity/volume] in Serum or PlasmaOrdered By: Susanne Motley on 07-03-2024 AST [Catalytic activity/Vol] Aspartate aminotransferase [Enzymatic activity/volume] in Serum or Plasma 13-39 [facility] Basophils Auto (Bld) [#/Vol] Ordered By: Susanne Motley on 07-03-2024 Basophils (Bld) [#/Vol] Automated basophil count 0.0-0.2 [facility] Basophils/100 WBC Auto (Bld) Ordered By: Susanne Motley on 07-03-2024 Basophils/100 WBC (Bld) Automated basophil % . [facility] Bilirubin.total [Mass/volume ] in Serum or PlasmaOrdered By: Susanne Motley on 07-03-2024 Bilirubin [Mass/Vol] Bilirubin.total [Mass/volume] in Serum or Plasma 0.3-1.0 [facility] COVID Cepheid NegativeOrdere d By: Susanne Motley on 07-03-2024 SARS-CoV-2 (COVID-19) Ab IA Ql COVID Cepheid Negative [facility] Comment on above: This is a duplicate Cepheid Xpert Xpress CoV-2/Flu/RSV Plus RNA by RT-PCR result to be used for statistical tracking purpose only. COVID-19 / Flu A/B / RSV PCR on 07-03-2024 SARS-CoV-2 (COVID-19) RNA HOWIE+probe Ql (Unsp spec) Normal [facility] Comment on above: Performed By: #### C OVID19 FLU RSV, CEPHEID NEG ####[facility] [id number] [place] [address] [facility] CT abdomen pelvis w conon CT abdomen pelvis w con Normal T he [facility] angio chest PE protocolon 07-03-2024 CT angio chest PE protocol Normal [facility] CT head/brain wo conon 07-03 CT head/brain wo con Normal The [facility] Calcium [Mass/volume] in Ser um or PlasmaOrdered By: Susanne Motley on 07-03-2024 Calcium [Mass/Vol] Calcium [Mass/volume ] in Serum or Plasma 8.6-10.3 [facility] Carbon dioxide, total [Moles /volume] in Serum or PlasmaOrdered By: Susanne Motley on 07-03-2024 CO2 [Moles/Vol] Carbon dioxide, tota l [Moles/volume] in Serum or Plasma 21.0-31.0 [facility] Cepheid COVID PCR Negativeon 07-03-2024 SARS-CoV-2 (COVID-19) RNA HOWIE+probe Ql (Unsp spec) Negative Normal Negative [facility] Comment on above: Result Comment: This is a duplicate Cepheid Xpert Xpress CoV-2/Flu/RSV Plus RNA by RT-PCR result to be used for statistical tracking purpose only.PERFORMED BY:[facility] [place], [place] [phone] MEDICAL RACHAEL GARCIA M.D. Performed By: #### C OVID19 FLU RSV, CEPHEID NEG ####[address] Chloride [Moles/volume] in S christine or PlasmaOrdered By: Susanne Motley on 07-03-2024 Chloride [Moles/Vol] Chloride [Moles/vol ume] in Serum or Plasma 98-107 [facility] Complete Blood Count Auto Di ffon 07-03-2024 Basophils (Bld) [#/Vol] 0.0 10*3/uL Normal 0.0-0.2 [facility] Comment on above: Result Comment: PERF ORMED BY:[address] [place], [place] [phone] MEDICAL DIRECTORMALLORIE GARCIA M.D. Performed By: #### C MP, CBC ####[address] Basophils/100 WBC (Bld) 0.7 % Normal . T lilia [facility] Comment on above: Performed By: #### C MP, CBC ####[address] Eosinophils (Bld) [#/Vol] 0.2 10*3/uL Normal 0.0-0.45 [facility] Comment on above: Performed By: #### C MP, CBC ####[address] Eosinophils/100 WBC (Bld) 2.7 % Normal . [facility] Comment on above: Performed By: #### C MP, CBC ####[address] Erythrocyte distribution width (RBC) [Ratio] 16.2 % High 12.0-14.8 [facility] Comment on above: Performed By: #### C MP, CBC ####[address] Hematocrit (Bld) [Volume fraction] 30.7 % Low 38.8-50.0 [facility] Comment on above: Performed By: #### C MP, CBC ####[address] Hemoglobin (Bld) [Mass/Vol] 10.3 g/dL Low 13.0-17.0 [facility] Comment on above: Performed By: #### C MP, CBC ####[address] Lymphocytes (Bld) [#/Vol] 0.7 10*3/uL Low 1.00-4.8 [facility] Comment on above: Performed By: #### C MP, CBC ####[address] Lymphocytes/100 WBC (Bld) 12.4 % Normal . [facility] Comment on above: Performed By: #### C MP, CBC ####[address] MCH (RBC) [Entitic mass] 28.1 pg Normal 27.5-35.2 [facility] Comment on above: Performed By: #### C MP, CBC ####[address] MCV (RBC) [Entitic vol] 83.7 fL Normal 83.5-101 T [facility] Comment on above: Performed By: #### C MP, CBC ####[address] Mean Corpuscular HGB Conc 33.6 g/dL Normal 32.5-35.6 [facility] Comment on above: Performed By: #### C MP, CBC ####[address] Monocytes (Bld) [#/Vol] 0.6 10*3/uL Normal 0.0-0.8 [facility] Comment on above: Performed By: #### C MP, CBC ####[address] Monocytes/100 WBC (Bld) 18.01 % Normal 0.00-20.00 T [facility] Comment on above: Performed By: #### C MP, CBC ####[address] Monocytes/100 WBC (Bld) 9.9 % Normal . T [facility] Comment on above: Performed By: #### C MP, CBC ####[address] Neutrophils (Bld) [#/Vol] 4.3 10*3/uL Normal 1.8-7.7 [facility] Comment on above: Performed By: #### C MP, CBC ####[address] Neutrophils/100 WBC (Bld) 74.3 % Normal . [facility] Comment on above: Performed By: #### C MP, CBC ####[address] NRBC% 0.0 /100{WBC} Normal 0-0.5 [facility] Comment on above: Performed By: #### C MP, CBC ####[address] Platelet mean volume (Bld) [Entitic vol] 7.7 fL Normal 6.6-10.1 [facility] Comment on above: Performed By: #### C MP, CBC ####[address] Platelets (Bld) [#/Vol] 327 10*3/uL Normal 150-450 [facility] Comment on above: Performed By: #### C MP, CBC ####[address] RBC (Bld) [#/Vol] 3.67 10*6/uL Low 3.90-5.60 [facility] Comment on above: Performed By: #### C MP, CBC ####[address] WBC (Bld) [#/Vol] 5.8 10*3/uL Normal 4.1-10.5 [facility] Comment on above: Performed By: #### C MP, CBC ####[address] Comprehensive Metabolic Pane juliana 07-03-2024 Albumin [Mass/Vol] 3.8 g/dL Normal 3.5-5.7 [facility] Comment on above: Performed By: #### C MP, CBC ####[address] Albumin/Globulin [Mass ratio] 0.9 {ratio} Normal [facility] Comment on above: Performed By: #### C MP, CBC ####[address] ALP [Catalytic activity/Vol] 124 U/L High 34-104 [facility] Comment on above: Performed By: #### C MP, CBC ####[address] ALT [Catalytic activity/Vol] 10 U/L Normal 7-52 [facility] Comment on above: Performed By: #### C MP, CBC ####[address] Anion gap [Moles/Vol] 14.5 mmol/L Normal 6.0-15.0 [facility] Comment on above: Performed By: #### C MP, CBC ####[address] AST [Catalytic activity/Vol] 18 U/L Normal 13-39 [facility] Comment on above: Performed By: #### C MP, CBC ####[address] Bilirubin [Mass/Vol] 0.9 mg/dL Normal 0.3-1.0 [facility] Comment on above: Performed By: #### C MP, CBC ####[address] Calcium [Mass/Vol] 9.7 mg/dL Normal 8.6-10.3 [facility] Comment on above: Performed By: #### C MP, CBC ####[address] [address] [facility] Chloride [Moles/Vol] 99 mmol/L Normal 98-107 [facility] Comment on above: Performed By: #### C MP, CBC ####[address] [address] [facility] CO2 [Moles/Vol] 24.4 mmol/L Normal 21.0-31.0 [facility] Comment on above: Performed By: #### C MP, CBC ####[place] [id number] [facility] Creatinine [Mass/Vol] 1.12 mg/dL Normal 0.70-1.30 [facility] Comment on above: Performed By: #### C MP, CBC ####[place] [id number] [facility] Creatinine Clr Calc Pharmacy 59.91 Normal [facility] Comment on above: Result Comment: PERF ORMED BY:[address] [place], [place] [phone] MEDICAL DIRECTORMALLORIE GARCIA M.D. Performed By: #### C MP, CBC ####[address] [address] [facility] GFR/1.73 sq M.predicted MDRD (S/P/Bld) [Vol rate/Area] mL/min/{1.73_m2} Normal [facility] Comment on above: Performed By: #### C MP, CBC ####[address] [address] [facility] Globulin (S) [Mass/Vol] 4.1 g/dL Normal T he [facility] Comment on above: Performed By: #### C MP, CBC ####[address] [address] [facility] Glucose [Mass/Vol] 107 mg/dL High 70-100 [facility] Comment on above: Result Comment: [place] om Glucose Reference Range is dependent on time and content of last meal. Glucose of more than 200 mg/dL in a nonstressed, ambulatory subject supports the diagnosis of Diabetes Mellitus. ADA recommended reference range Performed By: #### C MP, CBC ####[facility] Potassium [Moles/Vol] 3.9 mmol/L Normal 3.5-5.1 [facility] Comment on above: Performed By: #### C MP, CBC ####[place] [id number] Protein [Mass/Vol] 7.9 g/dL Normal 6.4-8.9 [facility] Comment on above: Performed By: #### C MP, CBC ####[place] [id number] Sodium [Moles/Vol] 134 mmol/L Low 136-145 [facility] Comment on above: Performed By: #### C MP, CBC ####[place] [id number] Urea nitrogen [Mass/Vol] 15 mg/dL Normal 7-25 [facility] Comment on above: Performed By: #### C MP, CBC ####[address] Creatinine [Mass/volume] in Serum or PlasmaOrdered By: Susanne Motley on 07-03-2024 Creatinine [Mass/Vol] Creatinine [Mass/v olume] in Serum or Plasma 0.70-1.30 [facility] D-Dimer High Sensitivityon 0 07-03-2024 D-Dimer High Sensitivity 462 ng/mL High 0-243 [facility] Comment on above: Result Comment: The reference range for D-dimer is <243 ng/mL D-dimer units. D-dimer results must be used in conjunction with a clinical pretest probability (PTP) assessment model for deep vein thrombosis (DVT) and pulmonary embolism (PE). Results <230 ng/mL d-dimer units can be used as a negative predictor in patients with low or moderate probability for DVT/PE. Results above the exclusion threshold of 230 ng/ml D-dimer units for DVT/PE may indicate the need for further diagnostic testing. D-Dimer can be increased in hospitalized patients due to co-morbid conditions. A hematocrit value greater than 55% may lead to inaccurate results in coagulation testing. Patients having hematocrit values >55% require a special collection tube for coagulation studies. Please contact the laboratory at [phone] for redraw instructions.PERFORMED BY:[place] [place], [place] [phone] MEDICAL DIRECTORMALLORIE GARCIA M.D. Performed By: #### D DIMER, ANGELITA, TSH3, ACET, T4F, ETOH, MG, HS TROP, PTT ####[facility] [address] [place] [address] [facility] ECG 12 lead ECGon 07-03-2024 ECG 12 lead ECG Normal [facility] ECG 12 lead ECG Normal [facility] Eosinophils Auto (Bld) [#/Vo l]Ordered By: Susanne Motley on 07-03-2024 Eosinophils (Bld) [#/Vol] Automated eosinophil count 0.0-0.45 [facility] Eosinophils/100 WBC Auto (Bl d)Ordered By: Susanne Motley on 07-03-2024 Eosinophils/100 WBC (Bld) Automated eosinophil % . [facility] Erythrocyte distribution wid th Auto (RBC) [Ratio]Ordered By: Susanne Motley on 07-03-2024 Erythrocyte distribution width (RBC) [Ratio] Erythrocyte distribution width [Ratio] by Automated count High 12.0-14.8 [facility] Ethanol [Mass/volume] in Ser um or PlasmaOrdered By: Susanne Motley on 07-03-2024 Ethanol [Mass/Vol] Ethanol [Mass/volume ] in Serum or Plasma [facility] Comment on above: Test not performed Ethyl Alcohol Profileon 06-15 Ethanol [Mass/Vol] mg/dL Normal [facility] Comment on above: Performed By: #### D DIMER, ANGELITA, TSH3, ACET, T4F, ETOH, MG, HS TROP, PTT ####[place] [id number] [place] [address] [facility] Percent Ethanol Not performed Normal [facility] Comment on above: Result Comment: PERF ORMED BY:[facility] [place]Marge[place], [place] [phone] MEDICAL DIRECTORMALLORIE GARCIA M.D. Performed By: #### D DIMER, ANGELITA, TSH3, ACET, T4F, ETOH, MG, HS TROP, PTT ####[facility] [place] [address] [facility] Fibrin D-dimer [Presence] in Platelet poor plasma by Latex agglutinationOrdered By: Susanne Motley on 07-03-2024 Fibrin D-dimer LA Ql (PPP) Fibrin D-dimer [Presence] in Platelet poor plasma by Latex agglutination High 0-243 [facility] Comment on above: The reference range for D-dimer is <243 ng/mL D-dimer units.D-dimer results must be used in conjunction with a clinicalpretest probability (PTP) assessment model for deep veinthrombosis (DVT) and pulmonary embolism (PE). Results <230ng/mL d-dimer units can be used as a negative predictor inpatients with low or moderate probability for DVT/PE.Results above the exclusion threshold of 230 ng/ml D-dimerunits for DVT/PE may indicate the need for furtherdiagnostic testing.D-Dimer can be increased in hospitalized patients due toco-morbid conditions.A hematocrit value greater than 55% may lead to inaccurate results in coagulation testing. Patients having hematocrit values >55% require a special collection tube for coagulation studies. Please contact the laboratory at [phone] for redraw instructions. Free T4 (Free Thyroxine)on 0 07-03-2024 Free T4 [Mass/Vol] 1.31 ng/dL High 0.61-1.12 [facility] Comment on above: Performed By: #### D DIMER, ANGELITA, TSH3, ACET, T4F, ETOH, MG, HS TROP, PTT ####[facility] [place] [address] [facility] Globulin Calc (S) [Mass/Vol] Ordered By: Susanne Motley on 07-03-2024 Globulin (S) [Mass/Vol] Serum globulin m easurement by calculation (mass/volume) [facility] Glucose [Mass/volume] in Ser um or PlasmaOrdered By: Susanne Motley on 07-03-2024 Glucose [Mass/Vol] Glucose [Mass/volume ] in Serum or Plasma High 70-100 [facility] Comment on above: ADA recommended refe rence rangeRandom Glucose Reference Range is dependent on time and content of last meal. Glucose of more than 200 mg/dL in a nonstressed, ambulatory subject supports the diagnosis of Diabetes Mellitus. Hematocrit Auto (Bld) [Volum e fraction]Ordered By: Susanne Motley on 07-03-2024 Hematocrit (Bld) [Volume fraction] Hematocrit [Volume Fraction] of Blood by Automated count Low 38.8-50.0 [facility] Hemoglobin [Mass/volume] in BloodOrdered By: Susanne Motley on 07-03-2024 Hemoglobin (Bld) [Mass/Vol] Hemoglobin [Mass/volume] in Blood Low 13.0-17.0 [facility] Leukocytes [#/volume] correc junior for nucleated erythrocytes in Blood by Automated counOrdered By: Susanne Motley on 07-03-2024 WBC corrected for nucl RBC Auto (Bld) [#/Vol] Leukocytes [#/volume] corrected for nucleated erythrocytes in Blood by Automated coun 4.1-10.5 [facility] Lymphocytes Auto (Bld) [#/Vo l]Ordered By: Susanne Motley on 07-03-2024 Lymphocytes (Bld) [#/Vol] Lymphocytes [#/volume] in Blood by Automated count Low 1.00-4.8 [facility] Lymphocytes/100 WBC Auto (Bl d)Ordered By: Susanne Motley on 07-03-2024 Lymphocytes/100 WBC (Bld) Lymphocytes/100 leukocytes in Blood by Automated count . [facility] MCH Auto (RBC) [Entitic mass ]Ordered By: Susanne Motley on 07-03-2024 MCH (RBC) [Entitic mass] MCH [Entitic mass] by Automated count 27.5-35.2 [facility] MCHC Auto (RBC) [Mass/Vol]Or dered By: Susanne Motley on 07-03-2024 MCHC (RBC) [Mass/Vol] MCHC [Mass/volume] by Automated count 32.5-35.6 [facility] MCV Auto (RBC) [Entitic vol] Ordered By: Susanne Motley on 07-03-2024 MCV (RBC) [Entitic vol] MCV [Entitic vol ume] by Automated count 83.5-101 [facility] Magnesiumon 07-03-2024 Magnesium [Mass/Vol] 1.5 mg/dL Low 1.9-2.7 [facility] Comment on above: Performed By: #### D DIMER, ANGELITA, TSH3, ACET, T4F, ETOH, MG, HS TROP, PTT ####[facility] [id number] [place] [address] [facility] Magnesium [Mass/volume] in S christine or PlasmaOrdered By: Susanne Motley on 07-03-2024 Magnesium [Mass/Vol] Magnesium [Mass/vol ume] in Serum or Plasma Low 1.9-2.7 [facility] Monocyte distribution width [Entitic volume] in Blood by AutomatedOrdered By: Susanne Motley on 07-03-2024 Monocyte distribution width Auto (Bld) [Entitic vol] Monocyte distribution width [Entitic volume] in Blood by Automated 0.00-20.00 [facility] Monocytes Auto (Bld) [#/Vol] Ordered By: Susanne Motley on 07-03-2024 Monocytes (Bld) [#/Vol] Automated blood monocyte count 0.0-0.8 [facility] Monocytes/100 WBC Auto (Bld) Ordered By: Susanne Motley on 07-03-2024 Monocytes/100 WBC (Bld) Automated monocyte % . [facility] Neutrophils Auto (Bld) [#/Vo l]Ordered By: Susanne Motley on 07-03-2024 Neutrophils (Bld) [#/Vol] Neutrophils [#/volume] in Blood by Automated count 1.8-7.7 [facility] Neutrophils/100 WBC Auto (Bl d)Ordered By: Susanne Motley on 07-03-2024 Neutrophils/100 WBC (Bld) Automated neutrophil % . [facility] No Panel InformationOrdered By: Susanne Motley on 07-03-2024 Blood Gas Critical Value See comment [facility] Comment on above: Critical Value regan d on: 07/03/2024 at 20:39 Blood Gas Liter Flow 2 [facility] Blood Gas Sample Site Venous Fir [facility] FiO2 28% % [facility] Oxygen Delivery Device Nasal cannula [facility] Venous Blood Base Excess -3.8 mmol/L Low -3.0-3.0 [facility] Venous Blood Oxygen Saturation 50.2 % Critically low 73.0-76.0 [facility] Venous Blood Partial Pressure CO2 40.0 mm[Hg] 38.0-50.0 [facility] Venous Blood pH 7.35 7.32-7.43 [facility] Estimated GFR (CKD-EPI) > 60.0 mL/Min [facility] Pharmacy Creatinine Clearance (Chem 59.91 [facility] Nucleated erythrocytes [Pres ence] in Blood by Automated countOrdered By: Susanne Motley on 07-03-2024 Nucleated RBC Auto Ql (Bld) Nucleated erythrocytes [Presence] in Blood by Automated count 0-0.5 [facility] Partial Thromboplastin Timeo n 07-03-2024 aPTT Coag (Bld) [Time] 41.2 s High 25.1-36.5 Th e [facility] Comment on above: Result Comment: A he matocrit value greater than 55% may lead to inaccurate results in coagulation testing. Patients having hematocrit values >55% require a special collection tube for coagulation studies. Please contact the laboratory at [phone] for redraw instructions. Performed By: #### D DIMER, ANGELITA, TSH3, ACET, T4F, ETOH, MG, HS TROP, PTT ####[facility] [id number] Platelet mean volume Auto (B ld) [Entitic vol]Ordered By: Susanne Motley on 07-03-2024 Platelet mean volume (Bld) [Entitic vol] Platelet mean volume [Entitic volume] in Blood by Automated count 6.6-10.1 [facility] Platelets Auto (Bld) [#/Vol] Ordered By: Susanne Motley on 07-03-2024 Platelets (Bld) [#/Vol] Platelets [#/vol ume] in Blood by Automated count 150-450 [facility] Potassium [Moles/volume] in Serum or PlasmaOrdered By: Susanne Motley on 07-03-2024 Potassium [Moles/Vol] Potassium [Moles/v olume] in Serum or Plasma 3.5-5.1 [facility] Protein [Mass/volume] in Ser um or PlasmaOrdered By: Susanne Motley on 07-03-2024 Protein [Mass/Vol] Protein [Mass/volume ] in Serum or Plasma 6.4-8.9 [facility] RBC Auto (Bld) [#/Vol]Ordere d By: Susanne Motley on 07-03-2024 RBC (Bld) [#/Vol] Erythrocytes [#/volu me] in Blood by Automated count Low 3.90-5.60 [facility] Respiratory specimen influen za A virus, influenza B virus, respiratory syncytical virOrdered By: Susanne Motley on 07-03-2024 SARS-CoV-2 (COVID-19) RNA HOWIE+probe Ql (Unsp spec) Respiratory specimen influenza A virus, influenza B virus, respiratory syncytical vir [facility] SARS-CoV-2 (COVID-19) RNA HOWIE+probe Ql (Unsp spec) Respiratory specimen influenza A virus, influenza B virus, respiratory syncytical vir [facility] Salicylateon 07-03-2024 Salicylate <1.5 Low 15.0-30.0 [facility] Comment on above: Result Comment: Ingrid ents treated with Sulfasalazine may generate a false high result for Salicylate. Performed By: #### D DIMER, ANGELITA, TSH3, ACET, T4F, ETOH, MG, HS TROP, PTT ####[facility] [id number] [id number] [facility] Salicylates [Mass/volume] in Serum or PlasmaOrdered By: Susanne Motley on 07-03-2024 Salicylates [Mass/Vol] Salicylates [Mass /volume] in Serum or Plasma Low 15.0-30.0 [facility] Comment on above: Patients treated wit h Sulfasalazine may generate a false high result for Salicylate. Serum or plasma albumin/glob ulin mass ratioOrdered By: Susanne Motley on 07-03-2024 Albumin/Globulin [Mass ratio] Serum or plasma albumin/globulin mass ratio [facility] Serum or plasma anion gap de terminationOrdered By: Susanne Motley on 07-03-2024 Anion gap [Moles/Vol] Serum or plasma an ion gap determination 6.0-15.0 [facility] Sodium [Moles/volume] in Ser um or PlasmaOrdered By: Susanne Motley on 07-03-2024 Sodium [Moles/Vol] Sodium [Moles/volume ] in Serum or Plasma Low 136-145 [facility] Thyroid Stimulating Hormoneo n 07-03-2024 TSH Qn 2.93 m[IU]/L Normal 0.45-5.33 [facility] Comment on above: Result Comment: PERF ORMED BY:[address] [place], [place] [phone] MEDICAL DIRECTORMALLORIE GARCIA M.D. Performed By: #### D DIMER, ANGELITA, TSH3, ACET, T4F, ETOH, MG, HS TROP, PTT ####[facility] [id number] [place] [address] [facility] Thyrotropin [Units/volume] i n Serum or PlasmaOrdered By: Susanne Motley on 07-03-2024 TSH Qn Thyrotropin [Units/v olume] in Serum or Plasma 0.45-5.33 [facility] Thyroxine (T4) free [Mass/vo lume] in Serum or PlasmaOrdered By: Susanne Motley on 07-03-2024 Free T4 [Mass/Vol] Thyroxine (T4) free [Mass/volume] in Serum or Plasma High 0.61-1.12 [facility] Troponin I High Sensitivityo n 07-03-2024 Troponin I High Sensitivity 12 Normal 0-20 [facility] Comment on above: Result Comment: The Troponin units of report have been changed to meet the Chest Pain Accreditation requirement, element EC5.M1l2. Troponin units are changed from pg/ml to ng/L. Also, the decimal is removed and results are in whole numbers.PERFORMED BY:[address] [address] [place], [place] [phone] MEDICAL DIRECTORMALLORIE GARCIA M.D. Performed By: #### H S TROP ####[address] [address] [facility] Troponin I High Sensitivity 14 Normal 0-20 [facility] Comment on above: Result Comment: The Troponin units of report have been changed to meet the Chest Pain Accreditation requirement, element EC5.M1l2. Troponin units are changed from pg/ml to ng/L. Also, the decimal is removed and results are in whole numbers.PERFORMED BY:[facility] [place], [place] [phone] MEDICAL DIRECTORMALLORIE GARCIA M.D. Performed By: #### D DIMER, ANGELITA, TSH3, ACET, T4F, ETOH, MG, HS TROP, PTT ####[facility] [place] [address] [facility] Troponin I.cardiac [Mass/vol ume] in Serum or Plasma by Detection limit <= 0.01 ng/Ordered By: Susanne Motley on 07-03-2024 Troponin I.cardiac DL <= 0.01 ng/mL [Mass/Vol] Troponin I.cardiac [Mass/volume] in Serum or Plasma by Detection limit <= 0.01 ng/ 0-20 [facility] Comment on above: The Troponin units o f report have been changed to meet the Chest Pain Accreditation requirement, element EC5.M1l2. Troponin units are changed from pg/ml to ng/L. Also, the decimal is removed and results are in whole numbers. Urea nitrogen [Mass/volume] in Serum or PlasmaOrdered By: Susanne Motley on 07-03-2024 Urea nitrogen [Mass/Vol] Urea nitrogen [Mass/volume] in Serum or Plasma 7-25 [facility] Urine cultureOrdered By: Jose Rafael Motley on 07-03-2024 Bacteria identified Cx Nom (U) Group B Strep (Streptococcus agalactiae) Abnormal [facility] Venous Blood GasOrdered By: Susanne Motley on 07-03-2024 CO2 [Moles/Vol] 22.8 mmol/L Low 24.0-29.0 [facility] Comment on above: Performed By: #### V BG ####Point of Care testing, HCO3 (Bld) [Moles/Vol] 21.5 mmol/L Low 23.0-29.0 [facility] Comment on above: Performed By: #### V BG ####Point of Care testing, Venous Blood Gason Oxygen Device Nasal Cannula Normal [facility] Comment on above: Performed By: #### V BG ####Point of Care testing, Respiratory Critical Normal [facility] Comment on above: Result Comment: Crit ical Value called on: 07/03/2024 at 20:39PERFORMED BY:[facility] [place], [place] [phone] MEDICAL DIRECTORMALLORIE GARCIA M.D. Performed By: #### V BG ####Point of Care testing, VBG Base Excess -3.8 mmol/L Low -3.0-3.0 [facility] Comment on above: Performed By: #### V BG ####Point of Care testing, VBG Draw Site Venous Normal [facility] Comment on above: Performed By: #### V BG ####Point of Care testing, VBG Frac Inspired O2 28% Normal [facility] Comment on above: Performed By: #### V BG ####Point of Care testing, VBG Liter Flow 2 Normal [facility] Comment on above: Performed By: #### V BG ####Point of Care testing, VBG Oxygen Saturation 50.2 % Off scale low 73.0-76.0 [facility] Comment on above: Performed By: #### V BG ####Point of Care testing, VBG PCO2 40.0 mm[Hg] Normal 38.0-50.0 [facility] Comment on above: Performed By: #### V BG ####Point of Care testing, VBG PH Venous PH 7.35 Normal 7.32-7.43 [facility] Comment on above: Performed By: #### V BG ####Point of Care testing, WBC Auto (Bld) [#/Vol]Ordere d By: Susanne Motley on 07-03-2024 WBC (Bld) [#/Vol] Leukocytes [#/volume ] in Blood by Automated count 4.1-10.5 [facility] X-ray reportOrdered By: Juliocesar Varela on 07-03-2024 Study report [facility] [place] [address] XRay Report Signed Patient: Mary Mcadams MR#: [id number] : 1955 Acct:[id number] Age/Sex: 68 / M ADM Date: 5 Loc: ER Room: Type: PRE ER Attending Dr: Copies to: Susanne Motley MD~ Ordering Provider: Susanne Motley MD Date of Service: 07/03/24 XR/XR chest 2V*: Weakness XR chest 2V* 07/03/2024 6:35 PM SIGNS AND SYMPTOMS: Confusion, weakness, lower abdominal tenderness PROTOCOL: Frontal and lateral radiographs of the chest COMPARISON: 02/29/2024 FINDINGS: The trachea is midline. Calcified mediastinal and hilar lymph nodes are redemonstrated bilaterally. The heart and mediastinal structures are within normal limits. Chronic pleural-parenchymal opacities are noted in the lung bases with diffuse interstitial prominence bilaterally. The bony thorax is intact. XR/XR chest 2V* IMPRESSION: Chronic pleural-parenchymal opacities are noted in the lung bases with diffuse interstitial prominence bilaterally. Calcified mediastinal and hilar lymph nodes are redemonstrated bilaterally. Impression dictated by: Juliocesar Varela M.D.07/03/2024 9:04 PM Dictation Location: [place] [address] Transcribed By: [facility] 07/03/242103 Dictated By: Juliocesar Varela II, MD 07/03/242101 Signed By: 07/03/242103 [facility] Work Phone: XR chest 2V*on 07-03-2024 XR chest 2V* Normal [facility] aPTT in Platelet poor plasma by Coagulation assayOrdered By: Susanne Motley on 07-03-2024 aPTT Coag (PPP) [Time] Activated partial thromboplastin time (aPTT) in platelet poor plasma by coagulation a High 25.1-36.5 [facility] Comment on above: A hematocrit value g reater than 55% may lead to inaccurate results in coagulation testing. Patients having hematocrit values >55% require a special collection tube for coagulation studies. Please contact the laboratory at [phone] for redraw instructions. [facility] Heart Perfusion W stress and W radionuclide Juanjose 06-12-2024 Normal Lexiscan Myov iew cardiac perfusion stress test. No evidence of ischemia or myocardial infarction by perfusion imaging. Normal left ventricular systolic function, ejection fraction 57%. No previous study available for comparison. Signed by: Chacho Burroughs 06/12/2024 5:53 PM Dictation workstation: [id number] [facility] Interpreted By: Chacho Burroughs and Giannuzzi Michael STUDY: MYOCARDIAL PERFUSION STRESS TEST WITH LEXISCAN Performing facility: [facility], [address] [place] [address], [address] Provider: Shannon Gonzalez MD, FACC PCP: Dr. Mat Del Valle Supervising provider: Chacho Burroughs MD INDICATION: Fatigue NICM A-fib LV Thrombus HISTORY: Gender: M; Age: 68 y/o ; Height: HT 182.9 cm cm; Weight: WT 70.852 kg kg. Arrhythmias;A-fib SOB; COPD; Fatigue; Denies smoking. COMPARISON: No comparison. ACCESSION NUMBER(S): [id number] ORDERING CLINICIAN: SHANNON GONZALEZ TECHNIQUE: ONE DAY protocol. Stress injection: Date:06-12-24, 32.8 mCi of Myoview IV 20 seconds after rapid injection of Lexiscan. Rest injection: Date: 06-12-24, 11.0 mCi of Myoview IV at rest. The patient had a rapid injection of 0.4 mg of Lexiscan IV over 10 seconds. Imaging was performed by gated tomographic technique. Reason for Lexiscan: uses walker/cane STRESS TEST DATA: Resting heart rate was 92 BPM. Resting blood pressure was 118/76 mmHg. Peak blood pressure was 102/58 mmHg. Peak heart rate was 101 BPM. TEST TERMINATED DUE TO: Protocol completed FINDINGS: STRESS TEST RESULTS: Resting electrocardiogram revealed normal sinus rhythm with incomplete left bundle branch block and nonspecific ST-T changes. There were no significant ischemic ECG changes or dysrhythmias. The patient did not have chest pains/symptoms during procedure. There was a normal recovery phase. IMAGING RESULTS: Image quality was good. Rest and stress tomographic images were reviewed and revealed normal perfusion without evidence of ischemia, myocardial infarction, or left ventricular dilatation with stress. Overall left ventricular systolic function appeared to be normal without regional wall motion abnormalities. Ejection fraction was 57%. TID is 0.97 and is normal. There were no evidence of attenuation artifact. [facility] Chacho Burroughs MD - 06/12/2024 Interpreted By: Chacho Burroughs and Giannuzzi Michael STUDY: MYOCARDIAL PERFUSION STRESS TEST WITH LEXISCAN Performing facility: [facility], [address] [place] [address], [address], [address] Provider: Shannon Gonzalez MD, [facility] PCP: Dr. Mat Del Valle Supervising provider: Chacho Burroughs MD INDICATION: Fatigue NICM A-fib LV Thrombus HISTORY: Gender: M; Age: 68 y/o ; Height: HT 182.9 cm cm; Weight: WT 70.852 kg kg. Arrhythmias;A-fib SOB; COPD; Fatigue; Denies smoking. COMPARISON: No comparison. ACCESSION NUMBER(S): [id number] ORDERING CLINICIAN: SHANNON GONZALEZ TECHNIQUE: ONE DAY protocol. Stress injection: Date:06-12-24, 32.8 mCi of Myoview IV 20 seconds after rapid injection of Lexiscan. Rest injection: Date: 06-12-24, 11.0 mCi of Myoview IV at rest. The patient had a rapid injection of 0.4 mg of Lexiscan IV over 10 seconds. Imaging was performed by gated tomographic technique. Reason for Lexiscan: uses walker/cane STRESS TEST DATA: Resting heart rate was 92 BPM. Resting blood pressure was 118/76 mmHg. Peak blood pressure was 102/58 mmHg. Peak heart rate was 101 BPM. TEST TERMINATED DUE TO: Protocol completed FINDINGS: STRESS TEST RESULTS: Resting electrocardiogram revealed normal sinus rhythm with incomplete left bundle branch block and nonspecific ST-T changes. There were no significant ischemic ECG changes or dysrhythmias. The patient did not have chest pains/symptoms during procedure. There was a normal recovery phase. IMAGING RESULTS: Image quality was good. Rest and stress tomographic images were reviewed and revealed normal perfusion without evidence of ischemia, myocardial infarction, or left ventricular dilatation with stress. Overall left ventricular systolic function appeared to be normal without regional wall motion abnormalities. Ejection fraction was 57%. TID is 0.97 and is normal. There were no evidence of attenuation artifact. IMPRESSION: Normal Lexiscan Myoview cardiac perfusion stress test. No evidence of ischemia or myocardial infarction by perfusion imaging. Normal left ventricular systolic function, ejection fraction 57%. No previous study available for comparison. Signed by: Chacho Burroughs 06/12/2024 5:53 PM Dictation workstation: [id number] [facility] Work Phone: Radiology Study observation (narrative) [facility] Work Phone: NM Heart Perfusion W stress and W radionuclide IVOrdered By: Chacho Burroughs on 06-12-2024 [facility] Work Phone: NUCLEAR STRESS TESTon 2024 NUCLEAR STRESS TEST Interpreted By: Chacho Burroughs and Giannuzzi Michael STUDY: MYOCARDIAL PERFUSION STRESS TEST WITH LEXISCAN Performing facility: [facility], [address] [place] [address], [address], [address] Provider: Shannon Gonzalez MD, FACC PCP: Dr. Mat Del Valle Supervising provider: Chacho Burroughs MD INDICATION: Fatigue NICM A-fib LV Thrombus HISTORY: Gender: M; Age: 68 y/o ; Height: HT 182.9 cm cm; Weight: WT 70.852 kg kg. Arrhythmias;A-fib SOB; COPD; Fatigue; Denies smoking. COMPARISON: No comparison. ACCESSION NUMBER(S): [id number] ORDERING CLINICIAN: SHANNON GONZALEZ TECHNIQUE: ONE DAY protocol. Stress injection: Date:06-12-24, 32.8 mCi of Myoview IV 20 seconds after rapid injection of Lexiscan. Rest injection: Date: 06-12-24, 11.0 mCi of Myoview IV at rest. The patient had a rapid injection of 0.4 mg of Lexiscan IV over 10 seconds. Imaging was performed by gated tomographic technique. Reason for Lexiscan: uses walker/cane STRESS TEST DATA: Resting heart rate was 92 BPM. Resting blood pressure was 118/76 mmHg. Peak blood pressure was 102/58 mmHg. Peak heart rate was 101 BPM. TEST TERMINATED DUE TO: Protocol completed FINDINGS: STRESS TEST RESULTS: Resting electrocardiogram revealed normal sinus rhythm with incomplete left bundle branch block and nonspecific ST-T changes. There were no significant ischemic ECG changes or dysrhythmias. The patient did not have chest pains/symptoms during procedure. There was a normal recovery phase. IMAGING RESULTS: Image quality was good. Rest and stress tomographic images were reviewed and revealed normal perfusion without evidence of ischemia, myocardial infarction, or left ventricular dilatation with stress. Overall left ventricular systolic function appeared to be normal without regional wall motion abnormalities. Ejection fraction was 57%. TID is 0.97 and is normal. There were no evidence of attenuation artifact. IMPRESSION: Normal Lexiscan Myoview cardiac perfusion stress test. No evidence of ischemia or myocardial infarction by perfusion imaging. Normal left ventricular systolic function, ejection fraction 57%. No previous study available for comparison. Signed by: Chacho Burroughs 06/12/2024 5:53 PM Dictation workstation: [id number] Normal [facility] ECG 12 Leadon 05-24-2024 ECG revealed normal sinus rhythm, LVH with repolarization abnormalities and QRS widening, prolonged QT interval, abnormal ECG [facility] Work Phone: Basophils Auto (Bld) [#/Vol] on 05-22-2024 Basophils (Bld) [#/Vol] Automated basophil count 0.0-0.1 [facility] Basophils/100 WBC Auto (Bld) on 05-22-2024 Basophils/100 WBC (Bld) Automated basophil % 0. 2-2.0 [facility] Eosinophils/100 WBC Auto (Bl d)on 05-22-2024 Eosinophils/100 WBC (Bld) Automated eosinophil % 0.9-7.0 [facility] Erythrocyte distribution wid th Auto (RBC) [Ratio]on 05-22-2024 Erythrocyte distribution width (RBC) [Ratio] Erythrocyte distribution width [Ratio] by Automated count 11.0-15.0 [facility] Estimated glomerular filtrat ion rate (GFR) non- Americanon 05-22-2024 GFR/1.73 sq M.predicted among non-blacks MDRD (S/P/Bld) [Vol rate/Area] Estimated glomerular filtration rate (GFR) non- >=60 mL/min/1.7 3m 2 [facility] Globulin Calc (S) [Mass/Vol] on 05-22-2024 Globulin (S) [Mass/Vol] Serum globulin m easurement by calculation (mass/volume) [facility] Hematocrit Auto (Bld) [Volum e fraction]on 05-22-2024 Hematocrit (Bld) [Volume fraction] Hematocrit [Volume Fraction] of Blood by Automated count Low 42.0-54.0 [facility] Hemoglobin [Mass/volume] in Bloodon 05-22-2024 Hemoglobin (Bld) [Mass/Vol] Hemoglobin [Mass/volume] in Blood Low 14.0-18.0 [facility] Laboratory - Chemistry and C hemistry - challengeon 05-22-2024 Albumin [Mass/Vol] 2.9 g/dL Low 3.4-5.0 [facility] ALP [Catalytic activity/Vol] 149 U/L High 46-116 [facility] ALT [Catalytic activity/Vol] 15 U/L Low 16-63 [facility] AST [Catalytic activity/Vol] 18 U/L 15-37 [facility] Bilirubin [Mass/Vol] 0.8 mg/dL 0.2-1.0 [facility] Calcium [Mass/Vol] 8.9 mg/dL 8.5-10.1 [facility] Chloride [Moles/Vol] 100 mmol/L 98-107 [facility] CO2 [Moles/Vol] 29.8 mmol/L 21.0-32.0 [facility] Creatinine [Mass/Vol] 0.95 mg/dL 0.70-1.30 [facility] GFR/1.73 sq M.predicted MDRD (S/P/Bld) [Vol rate/Area] mL/min/{1.73_m2} >=60 mL/min/1.7 3m 2 [facility] Glucose [Mass/Vol] 82 mg/dL 74-106 [facility] Potassium [Moles/Vol] 4.0 mmol/L 3.5-5.1 [facility] Protein [Mass/Vol] 6.2 g/dL Low 6.4-8.2 [facility] Sodium [Moles/Vol] 138 mmol/L 136-145 [facility] Urea nitrogen [Mass/Vol] 11.0 mg/dL 7.0-18.0 [facility] Urea nitrogen/Creatinine [Mass ratio] 11.6 mg/mg [facility] Laboratory - Hematology and Cell countson 05-22-2024 Immature granulocytes/100 WBC (Bld) 0.5 % 0.0-0.5 [facility] Leukocytes [#/volume] correc junior for nucleated erythrocytes in Blood by Automated counon 05-22-2024 WBC corrected for nucl RBC Auto (Bld) [#/Vol] Leukocytes [#/volume] corrected for nucleated erythrocytes in Blood by Automated coun 4.0-11.0 [facility] Lymphocytes Auto (Bld) [#/Vo l]on 05-22-2024 Lymphocytes (Bld) [#/Vol] Lymphocytes [#/volume] in Blood by Automated count Low 1.2-3.8 [facility] Lymphocytes/100 WBC Auto (Bl d)on 05-22-2024 Lymphocytes/100 WBC (Bld) Lymphocytes/100 leukocytes in Blood by Automated count Low 20.5-60.0 [facility] MCH Auto (RBC) [Entitic mass ]on 05-22-2024 MCH (RBC) [Entitic mass] MCH [Entitic mass] by Automated count 25.9-34.0 [facility] MCHC Auto (RBC) [Mass/Vol]on 05-22-2024 MCHC (RBC) [Mass/Vol] MCHC [Mass/volume] by Automated count 29.9-35.2 [facility] MCV Auto (RBC) [Entitic vol] on 05-22-2024 MCV (RBC) [Entitic vol] MCV [Entitic vol ume] by Automated count 80.0-94.0 [facility] Monocytes Auto (Bld) [#/Vol] on 05-22-2024 Monocytes (Bld) [#/Vol] Automated blood monocyte count High 0.3-0.8 [facility] Monocytes/100 WBC Auto (Bld) on 05-22-2024 Monocytes/100 WBC (Bld) Automated monocyte % High 1. 7-12.0 [facility] Neutrophils Auto (Bld) [#/Vo l]on 05-22-2024 Neutrophils (Bld) [#/Vol] Neutrophils [#/volume] in Blood by Automated count 1.4-6.5 [facility] Neutrophils/100 WBC Auto (Bl d)on 05-22-2024 Neutrophils/100 WBC (Bld) Automated neutrophil % 43.0-75.0 [facility] No Panel Informationon 05-22 Eosinophils # (Auto) 0.3 10 3/uL 0.0-0.7 [facility] Immature Granulocyte # (Auto) 0.03 10 3/uL 0.00-0.03 [facility] Platelet mean volume Auto (B ld) [Entitic vol]on 05-22-2024 Platelet mean volume (Bld) [Entitic vol] Platelet mean volume [Entitic volume] in Blood by Automated count 9.5-13.5 [facility] Platelets Auto (Bld) [#/Vol] on 05-22-2024 Platelets (Bld) [#/Vol] Platelets [#/vol ume] in Blood by Automated count 150-450 [facility] RBC Auto (Bld) [#/Vol]on RBC (Bld) [#/Vol] Erythrocytes [#/volu me] in Blood by Automated count Low 4.70-6.10 [facility] Serum or plasma albumin/glob ulin mass ratioon 05-22-2024 Albumin/Globulin [Mass ratio] Serum or plasma albumin/globulin mass ratio [facility] Serum or plasma anion gap de terminationon 05-22-2024 Anion gap [Moles/Vol] Serum or plasma an ion gap determination [facility] Estimated glomerular filtrat ion rate (GFR) non- Americanon 04-09-2024 GFR/1.73 sq M.predicted among non-blacks MDRD (S/P/Bld) [Vol rate/Area] Estimated glomerular filtration rate (GFR) non- Low >=60 mL/min/1.7 3m 2 [facility] Laboratory - Chemistry and C hemistry - challengeon 04-09-2024 Calcium [Mass/Vol] 8.9 mg/dL 8.5-10.1 [facility] Chloride [Moles/Vol] 102 mmol/L 98-107 [facility] CO2 [Moles/Vol] 25.4 mmol/L 21.0-32.0 [facility] Creatinine [Mass/Vol] 1.26 mg/dL 0.70-1.30 [facility] GFR/1.73 sq M.predicted MDRD (S/P/Bld) [Vol rate/Area] mL/min/{1.73_m2} >=60 mL/min/1.7 3m 2 [facility] Glucose [Mass/Vol] 91 mg/dL 74-106 [facility] Potassium [Moles/Vol] 4.1 mmol/L 3.5-5.1 [facility] Sodium [Moles/Vol] 137 mmol/L 136-145 [facility] Urea nitrogen [Mass/Vol] 12.0 mg/dL 7.0-18.0 [facility] Urea nitrogen/Creatinine [Mass ratio] 9.5 mg/mg [facility] Serum or plasma anion gap de terminationon 04-09-2024 Anion gap [Moles/Vol] Serum or plasma an ion gap determination [facility] ECG 12 Leadon 03-27-2024 ECG revealed normal sinus rhythm, IVCD, prolonged QT interval, diffuse ST and T changes, abnormal ECG [facility] Work Phone: Basic Metabolic Panelon 03-15 Anion gap [Moles/Vol] 9.0 mmol/L Normal 6.0-15.0 [facility] Comment on above: Performed By: #### B MP ####[facility] [id number] [place] [address] [facility] Calcium [Mass/Vol] 8.0 mg/dL Low 8.6-10.3 [facility] Comment on above: Result Comment: PERF ORMED BY:[address] [place], [place] [phone] MEDICAL DIRECTORBETHANY ALBRIGHT M.D. Performed By: #### B MP ####[address] [address] [address] [facility] Chloride [Moles/Vol] 100 mmol/L Normal 98-107 [facility] Comment on above: Performed By: #### B MP ####[address] [address] [facility] CO2 [Moles/Vol] 30.3 mmol/L Normal 21.0-31.0 [facility] Comment on above: Performed By: #### B MP ####[place] [id number] [facility] Creatinine [Mass/Vol] 1.09 mg/dL Normal 0.70-1.30 [facility] Comment on above: Performed By: #### B MP ####[place] [id number] [facility] GFR/1.73 sq M.predicted MDRD (S/P/Bld) [Vol rate/Area] mL/min/{1.73_m2} Normal [facility] Comment on above: Performed By: #### B MP ####[place] [id number] [facility] Glucose [Mass/Vol] 98 mg/dL Normal 70-100 [facility] Comment on above: Result Comment: [place] Glucose Reference Range is dependent on time and content of last meal. Glucose of more than 200 mg/dL in a nonstressed, ambulatory subject supports the diagnosis of Diabetes Mellitus. ADA recommended reference range Performed By: #### B MP ####[place] [id number] [facility] Potassium [Moles/Vol] 3.3 mmol/L Low 3.5-5.1 [facility] Comment on above: Performed By: #### B MP ####[place] [id number] [facility] Sodium [Moles/Vol] 136 mmol/L Normal 136-145 [facility] Comment on above: Performed By: #### B MP ####[place] [id number] [facility] Urea nitrogen [Mass/Vol] 23 mg/dL Normal 7-25 [facility] Comment on above: Performed By: #### B ####[facility] [address] [place] [id number] [facility] Calcium [Mass/volume] in Ser um or PlasmaOrdered By: Adam Del Valle on 03-26-2024 Calcium [Mass/Vol] Calcium [Mass/volume ] in Serum or Plasma Low 8.6-10.3 [facility] Carbon dioxide, total [Moles /volume] in Serum or PlasmaOrdered By: Adam Del Valle on 03-26-2024 CO2 [Moles/Vol] Carbon dioxide, tota l [Moles/volume] in Serum or Plasma 21.0-31.0 [facility] Chloride [Moles/volume] in S christine or PlasmaOrdered By: Adam Del Valle on 03-26-2024 Chloride [Moles/Vol] Chloride [Moles/vol ume] in Serum or Plasma 98-107 [facility] Creatinine [Mass/volume] in Serum or PlasmaOrdered By: Adam Del Valle on 03-26-2024 Creatinine [Mass/Vol] Creatinine [Mass/v olume] in Serum or Plasma 0.70-1.30 [facility] Glucose [Mass/volume] in Ser um or PlasmaOrdered By: Adam Del Valle on 03-26-2024 Glucose [Mass/Vol] Glucose [Mass/volume ] in Serum or Plasma 70-100 [facility] Comment on above: ADA recommended refe rence rangeRandom Glucose Reference Range is dependent on time and content of last meal. Glucose of more than 200 mg/dL in a nonstressed, ambulatory subject supports the diagnosis of Diabetes Mellitus. No Panel InformationOrdered By: Adam Del Valle on 03-26-2024 Estimated GFR (CKD-EPI) > 60.0 mL/Min [facility] Creatinine Clearance (Chem N/A [facility] Potassium [Moles/volume] in Serum or PlasmaOrdered By: Adam Del Valle on 03-26-2024 Potassium [Moles/Vol] Potassium [Moles/v olume] in Serum or Plasma Low 3.5-5.1 [facility] Serum or plasma anion gap de terminationOrdered By: Adam Del Valle on 03-26-2024 Anion gap [Moles/Vol] Serum or plasma an ion gap determination 6.0-15.0 [facility] Sodium [Moles/volume] in Ser um or PlasmaOrdered By: Adam Del Valle on 03-26-2024 Sodium [Moles/Vol] Sodium [Moles/volume ] in Serum or Plasma 136-145 [facility] Urea nitrogen [Mass/volume] in Serum or PlasmaOrdered By: Adam Del Valle on 03-26-2024 Urea nitrogen [Mass/Vol] Urea nitrogen [Mass/volume] in Serum or Plasma 7-25 [facility] ECG 12 lead ECGon 03-20-2024 ECG 12 lead ECG Normal [facility] ECG 12 lead ECGon 03-19-2024 ECG 12 lead ECG Normal [facility] Basic Metabolic Panelon Creatinine Clr Calc Pharmacy 71.44 Normal [facility] Comment on above: Result Comment: PERF ORMED BY:[address] [place], [place] [phone] MEDICAL DIRECTORBETHANY ALBRIGHT M.D. Performed By: #### B MP ####[address] [address] [facility] GFR/1.73 sq M.predicted MDRD (S/P/Bld) [Vol rate/Area] mL/min/{1.73_m2} Normal [facility] Comment on above: Performed By: #### B MP ####[address] [address] [facility] Calcium [Mass/volume] in Ser um or PlasmaOrdered By: Altaf Jones on 03-18-2024 Calcium [Mass/Vol] 8.6 mg/dL Normal 8.6-10.3 [facility] Comment on above: Performed By: #### B MP ####[address] [address] [facility] Calcium [Mass/Vol] Calcium [Mass/volume ] in Serum or Plasma 8.6-10.3 [facility] Carbon dioxide, total [Moles /volume] in Serum or PlasmaOrdered By: Altaf Jones on 03-18-2024 CO2 [Moles/Vol] 30.2 mmol/L Normal 21.0-31.0 [facility] Comment on above: Performed By: #### B MP ####[place] [id number] [place] [id number] [facility] CO2 [Moles/Vol] Carbon dioxide, tota l [Moles/volume] in Serum or Plasma 21.0-31.0 [facility] Chloride [Moles/volume] in S christine or PlasmaOrdered By: Altaf Jones on 03-18-2024 Chloride [Moles/Vol] 97 mmol/L Low 98-107 [facility] Comment on above: Performed By: #### B MP ####[place] [address] [place] [id number] [facility] Chloride [Moles/Vol] Chloride [Moles/vol ume] in Serum or Plasma Low 98-107 [facility] Creatinine [Mass/volume] in Serum or PlasmaOrdered By: Alatf Jones on 03-18-2024 Creatinine [Mass/Vol] 0.98 mg/dL Normal 0.70-1.30 [facility] Comment on above: Performed By: #### B MP ####[place] [address] [place] [id number] [facility] Creatinine [Mass/Vol] Creatinine [Mass/v olume] in Serum or Plasma 0.70-1.30 [facility] ECG 12 lead ECGon 03-18-2024 ECG 12 lead ECG Normal [facility] ECG 12 lead ECG Normal [facility] Glucose [Mass/volume] in Ser um or PlasmaOrdered By: Altaf Jones on 03-18-2024 Glucose [Mass/Vol] 93 mg/dL Normal 70-100 [facility] Comment on above: ADA recommended refe rence rangeRandom Glucose Reference Range is dependent on time and content of last meal. Glucose of more than 200 mg/dL in a nonstressed, ambulatory subject supports the diagnosis of Diabetes Mellitus. Result Comment: [place] om Glucose Reference Range is dependent on time and content of last meal. Glucose of more than 200 mg/dL in a nonstressed, ambulatory subject supports the diagnosis of Diabetes Mellitus. ADA recommended reference range Performed By: #### B MP ####[place] [address] [place] [address] [facility] Glucose [Mass/Vol] Glucose [Mass/volume ] in Serum or Plasma 70-100 [facility] Comment on above: ADA recommended refe rence rangeRandom Glucose Reference Range is dependent on time and content of last meal. Glucose of more than 200 mg/dL in a nonstressed, ambulatory subject supports the diagnosis of Diabetes Mellitus. No Panel InformationOrdered By: Altaf Jones on 03-18-2024 Estimated GFR (CKD-EPI) > 60.0 mL/Min [facility] Creatinine Clearance (Chem 71.44 [facility] Potassium [Moles/volume] in Serum or PlasmaOrdered By: Altaf Jones on 03-18-2024 Potassium [Moles/Vol] 4.1 mmol/L Normal 3.5-5.1 [facility] Comment on above: Performed By: #### B MP ####[place] [id number] [facility] Potassium [Moles/Vol] Potassium [Moles/v olume] in Serum or Plasma 3.5-5.1 [facility] Serum or plasma anion gap de terminationOrdered By: Altaf Jones on 03-18-2024 Anion gap [Moles/Vol] 8.9 mmol/L Normal 6.0-15.0 [facility] Comment on above: Performed By: #### B MP ####[address] [address] [facility] Anion gap [Moles/Vol] Serum or plasma an ion gap determination 6.0-15.0 [facility] Sodium [Moles/volume] in Ser um or PlasmaOrdered By: Altaf Jones on 03-18-2024 Sodium [Moles/Vol] 132 mmol/L Low 136-145 [facility] Comment on above: Performed By: #### B MP ####[place] [address] [place] [address] [facility] Sodium [Moles/Vol] Sodium [Moles/volume ] in Serum or Plasma Low 136-145 [facility] Urea nitrogen [Mass/volume] in Serum or PlasmaOrdered By: Altaf Jones on 03-18-2024 Urea nitrogen [Mass/Vol] 31 mg/dL High 12-06 [facility] Comment on above: Performed By: #### B MP ####[place] [id number] [facility] Urea nitrogen [Mass/Vol] Urea nitrogen [Mass/volume] in Serum or Plasma High 12-06 [facility] Basic Metabolic Panelon 11 Anion gap [Moles/Vol] 9.7 mmol/L Normal 6.0-15.0 [facility] Comment on above: Performed By: #### B MP ####[place] [id number] [facility] Calcium [Mass/Vol] 8.7 mg/dL Normal 8.6-10.3 [facility] Comment on above: Performed By: #### B MP ####[place] [id number] [facility] Chloride [Moles/Vol] 96 mmol/L Low 98-107 [facility] Comment on above: Performed By: #### B MP ####[place] [id number] [facility] CO2 [Moles/Vol] 32.3 mmol/L High 21.0-31.0 [facility] Comment on above: Performed By: #### B MP ####[place] [id number] [facility] Creatinine [Mass/Vol] 0.95 mg/dL Normal 0.70-1.30 [facility] Comment on above: Performed By: #### B MP ####[place] [id number] [facility] Creatinine Clr Calc Pharmacy 74.53 Normal [facility] Comment on above: Result Comment: PERF ORMED BY:[address] [place], [place] [phone] MEDICAL ANIA ALBRIGHT M.D. Performed By: #### B MP ####[place] [id number] [facility] GFR/1.73 sq M.predicted MDRD (S/P/Bld) [Vol rate/Area] mL/min/{1.73_m2} Normal [facility] Comment on above: Performed By: #### B MP ####[place] [address] [facility] Glucose [Mass/Vol] 111 mg/dL High 70-100 [facility] Comment on above: Result Comment: [place] Glucose Reference Range is dependent on time and content of last meal. Glucose of more than 200 mg/dL in a nonstressed, ambulatory subject supports the diagnosis of Diabetes Mellitus. ADA recommended reference range Performed By: #### B MP ####[address] Potassium [Moles/Vol] 4.0 mmol/L Normal 3.5-5.1 [facility] Comment on above: Performed By: #### B MP ####[address] Sodium [Moles/Vol] 134 mmol/L Low 136-145 [facility] Comment on above: Performed By: #### B MP ####[address] Urea nitrogen [Mass/Vol] 28 mg/dL High 7-25 [facility] Comment on above: Performed By: #### B MP ####[address] ECG 12 lead ECGon 03-17-2024 ECG 12 lead ECG Normal [facility] ECG 12 lead ECG Normal [facility] ECG 12 lead ECG Normal [facility] Basic Metabolic Panelon Anion gap [Moles/Vol] 11.9 mmol/L Normal 6.0-15.0 [facility] Comment on above: Performed By: #### B MP ####[place] [id number] [facility] Calcium [Mass/Vol] 8.2 mg/dL Low 8.6-10.3 [facility] Comment on above: Performed By: #### B MP ####[address] [address] [facility] Chloride [Moles/Vol] 95 mmol/L Low 98-107 [facility] Comment on above: Performed By: #### B MP ####[address] [address] [facility] CO2 [Moles/Vol] 28.6 mmol/L Normal 21.0-31.0 [facility] Comment on above: Performed By: #### B MP ####[address] [address] [facility] Creatinine [Mass/Vol] 0.82 mg/dL Normal 0.70-1.30 [facility] Comment on above: Performed By: #### B MP ####[address] [address] [facility] Creatinine Clr Calc Pharmacy 85.62 Normal [facility] Comment on above: Result Comment: PERF ORMED BY:[address] [place], [place] [phone] MEDICAL DIRECTORBETHANY ALBRIGHT M.D. Performed By: #### B MP ####[address] [address] [facility] GFR/1.73 sq M.predicted MDRD (S/P/Bld) [Vol rate/Area] mL/min/{1.73_m2} Normal [facility] Comment on above: Performed By: #### B MP ####[place] [address] [facility] Glucose [Mass/Vol] 127 mg/dL High 70-100 [facility] Comment on above: Result Comment: [place] Glucose Reference Range is dependent on time and content of last meal. Glucose of more than 200 mg/dL in a nonstressed, ambulatory subject supports the diagnosis of Diabetes Mellitus. ADA recommended reference range Performed By: #### B MP ####[place] [address] [facility] Potassium [Moles/Vol] 3.5 mmol/L Normal 3.5-5.1 [facility] Comment on above: Performed By: #### B MP ####[place] [address] [facility] Sodium [Moles/Vol] 132 mmol/L Low 136-145 [facility] Comment on above: Performed By: #### B MP ####[place] [address] [facility] Urea nitrogen [Mass/Vol] 22 mg/dL Normal 7-25 [facility] Comment on above: Performed By: #### B MP ####[place] [id number] [facility] ECG 12 lead ECGon 03-16-2024 ECG 12 lead ECG Normal [facility] Basic Metabolic Panelon Anion gap [Moles/Vol] 14.2 mmol/L Normal 6.0-15.0 [facility] Comment on above: Performed By: #### B MP ####[address] Calcium [Mass/Vol] 8.9 mg/dL Normal 8.6-10.3 [facility] Comment on above: Performed By: #### B MP ####[address] Chloride [Moles/Vol] 94 mmol/L Low 98-107 [facility] Comment on above: Performed By: #### B MP ####[place] [id number] [facility] CO2 [Moles/Vol] 28.7 mmol/L Normal 21.0-31.0 [facility] Comment on above: Performed By: #### B MP ####[place] [id number] [facility] Creatinine [Mass/Vol] 0.89 mg/dL Normal 0.70-1.30 [facility] Comment on above: Performed By: #### B MP ####[place] [id number] [facility] Creatinine Clr Calc Pharmacy 79.89 Normal [facility] Comment on above: Result Comment: PERF ORMED BY:[address] ZULUAGAJIM [place], [place] [phone] MEDICAL DIRECTORBETHANY ALBRIGHT M.D. Performed By: #### B MP ####[address] [address] [place] GFR/1.73 sq M.predicted MDRD (S/P/Bld) [Vol rate/Area] mL/min/{1.73_m2} Normal [facility] Comment on above: Performed By: #### B MP ####[address] [address] [facility] Glucose [Mass/Vol] 141 mg/dL High 70-100 [facility] Comment on above: Result Comment: [facility] Glucose Reference Range is dependent on time and content of last meal. Glucose of more than 200 mg/dL in a nonstressed, ambulatory subject supports the diagnosis of Diabetes Mellitus. ADA recommended reference range Performed By: #### B MP ####[address] [address] [facility] Potassium [Moles/Vol] 3.9 mmol/L Normal 3.5-5.1 [facility] Comment on above: Result Comment: Hemo lysis is present at a level that could interfere with the result. Contact lab if redraw is required Performed By: #### B MP ####[address] [address] [facility] Sodium [Moles/Vol] 133 mmol/L Low 136-145 [facility] Comment on above: Performed By: #### B MP ####[address] [address] [facility] Urea nitrogen [Mass/Vol] 16 mg/dL Normal 7-25 [facility] Comment on above: Performed By: #### B MP ####[address] [address] [facility] US carotid doppler BIon 11-0 US carotid doppler BI Normal [facility] Appearance of UrineOrdered B y: Maricruz Godoy on 03-14-2024 Appearance (U) Urine appearance Clear [facility] Automated basophil %Ordered By: Maricruz Godoy on 03-14-2024 Basophils/100 WBC (Bld) 1.2 % Normal . [facility] Comment on above: Performed By: #### B MP, MG, CBC ####[address] Automated basophil countOrde red By: Maricruz Godoy on 03-14-2024 Basophils (Bld) [#/Vol] 0.1 10*3/uL Normal 0.0-0.2 [facility] Comment on above: Result Comment: PERF ORMED BY:[address] [place], [place] [phone] MEDICAL DIRECTORBETHANY ALBRIGHT M.D. Performed By: #### B MP, MG, CBC ####[address] Automated blood monocyte cou ntOrdered By: Maricruz Godoy on 03-14-2024 Monocytes (Bld) [#/Vol] 0.9 10*3/uL High 0.0-0.8 [facility] Comment on above: Performed By: #### B MP, MG, CBC ####[address] Automated eosinophil %Ordere d By: Maricruz Godoy on 03-14-2024 Eosinophils/100 WBC (Bld) 2.3 % Normal . [facility] Comment on above: Performed By: #### B MP, MG, CBC ####[address] Automated eosinophil countOr dered By: Maricruz Godoy on 03-14-2024 Eosinophils (Bld) [#/Vol] 0.2 10*3/uL Normal 0.0-0.45 [facility] Comment on above: Performed By: #### B MP, MG, CBC ####[place] [id number] [facility] Automated monocyte %Ordered By: Maricruz Godoy on 03-14-2024 Monocytes/100 WBC (Bld) 11.6 % Normal . [facility] Comment on above: Performed By: #### B MP, MG, CBC ####[address] Automated neutrophil %Ordere d By: Maricruz Godoy on 03-14-2024 Neutrophils/100 WBC (Bld) 76.4 % Normal . [facility] Comment on above: Performed By: #### B MP, MG, CBC ####[address] Bacteria [Presence] in Urine by AutomatedOrdered By: Maricruz Godoy on 03-14-2024 Bacteria Auto Ql (U) 1+ [HPF] High None Seen [facility] Bacteria Auto Ql (U) Bacteria [Presence] in Urine by Automated High None Seen [facility] Basic Metabolic Panelon 10 Anion gap [Moles/Vol] 11.0 mmol/L Normal 6.0-15.0 [facility] Comment on above: Performed By: #### B MP, MG, CBC ####[address] Calcium [Mass/Vol] 8.4 mg/dL Low 8.6-10.3 [facility] Comment on above: Performed By: #### B MP, MG, CBC ####[address] Chloride [Moles/Vol] 101 mmol/L Normal 98-107 [facility] Comment on above: Performed By: #### B MP, MG, CBC ####[place] [id number] [facility] CO2 [Moles/Vol] 26.0 mmol/L Normal 21.0-31.0 [facility] Comment on above: Performed By: #### B MP, MG, CBC ####[place] [id number] [facility] Creatinine [Mass/Vol] 0.71 mg/dL Normal 0.70-1.30 [facility] Comment on above: Performed By: #### B MP, MG, CBC ####[place] [id number] Creatinine Clr Calc Pharmacy 88.87 Normal [facility] Comment on above: Performed By: #### B MP, MG, CBC ####[address] GFR/1.73 sq M.predicted MDRD (S/P/Bld) [Vol rate/Area] mL/min/{1.73_m2} Normal [facility] Comment on above: Performed By: #### B MP, MG, CBC ####[address] Glucose [Mass/Vol] 96 mg/dL Normal 70-100 [facility] Comment on above: Result Comment: [place] Glucose Reference Range is dependent on time and content of last meal. Glucose of more than 200 mg/dL in a nonstressed, ambulatory subject supports the diagnosis of Diabetes Mellitus. ADA recommended reference range Performed By: #### B MP, MG, CBC ####[address] Potassium [Moles/Vol] 4.0 mmol/L Normal 3.5-5.1 [facility] Comment on above: Performed By: #### B MP, MG, CBC ####[address] Sodium [Moles/Vol] 134 mmol/L Low 136-145 [facility] Comment on above: Performed By: #### B MP, MG, CBC ####[address] Urea nitrogen [Mass/Vol] 12 mg/dL Normal 7-25 [facility] Comment on above: Performed By: #### B MP, MG, CBC ####[place] [id number] [place] Basophils Auto (Bld) [#/Vol] Ordered By: Maricruz Godoy on 03-14-2024 Basophils (Bld) [#/Vol] Automated basophil count 0.0-0.2 [facility] Basophils/100 WBC Auto (Bld) Ordered By: Maricruz Godoy on 03-14-2024 Basophils/100 WBC (Bld) Automated basophil % . [facility] Bilirubin Test strip Ql (U)O rdered By: Maricruz Godoy on 03-14-2024 Bilirubin Ql (U) Negative Negative [facility] Bilirubin Ql (U) Bilirubin.total [Pre sence] in Urine by Test strip Negative [facility] Color Auto (U)Ordered By: Jeanette Godoy on 03-14-2024 Color (U) Color [facility] Urine by [facility] Color of Urine by AutoOrdere d By: Maricruz Godoy on 03-14-2024 Color (U) Yellow Normal Yellow [facility] Comment on above: Order Comment: Name Collection Type:: [place] Catheter Performed By: #### C UU, ADDONUAPLUS ####[place] [id number] Complete Blood Count Auto Di ffon 03-14-2024 Mean Corpuscular HGB Conc 33.3 g/dL Normal 32.5-35.6 [facility] Comment on above: Performed By: #### B MP, MG, CBC ####[place] [address] [place], [place] [address] NRBC% 0.1 /100{WBC} Normal 0-0.5 [facility] Comment on above: Performed By: #### B MP, MG, CBC ####[address] [address] [facility] Dipstick and Microscopicon 1 Bacteria,Urine 1+ High None Seen [facility] Comment on above: Order Comment: Name Collection Type:: [place] Catheter Performed By: #### C UU, ADDONUAPLUS ####[place] [id number] [place] [id number] [facility] Bilirubin,Urine Negative Normal Negative [facility] Comment on above: Order Comment: Name Collection Type:: [place] Catheter Performed By: #### C UU, ADDONUAPLUS ####[place] [id number] [facility] Glucose Ql (U) Normal Normal Normal [facility] Comment on above: Order Comment: Name Collection Type:: [place] Catheter Performed By: #### C UU, ADDONUAPLUS ####[address] Hyaline Casts,Urine None Normal 0-8 [facility] [facility] Comment on above: Order Comment: Name Collection Type:: Salinas Catheter Performed By: #### C UU, ADDONUAPLUS ####[address] Mucus,Urine Rare Normal [facility] Comment on above: Order Comment: Name Collection Type:: Salinas Catheter Result Comment: PERF ORMED BY:[id number] MEDICAL DIRECTORBETHANY ALBRIGHT M.D. Performed By: #### C UU, ADDONUAPLUS ####[address] Nitrite,Urine Negative Normal Negative [facility] Comment on above: Order Comment: Name Collection Type:: Salinas Catheter Performed By: #### C UU, ADDONUAPLUS ####[address] Occult Blood,Urine 2+ High Negative [facility] Comment on above: Order Comment: Name Collection Type:: Salinas Catheter Result Comment: PERF ORMED BY:[address] IBRAHIMNiecyROOSEVELTMARY VILLE [id number] MEDICAL DIRECTORBETHANY ALBRIGHT M.D. Performed By: #### C UU, ADDONUAPLUS ####[place] [id number] [facility] RBC,Urine 50-100 High 0-4 [facility] Comment on above: Order Comment: Name Collection Type:: Salinas Catheter Performed By: #### C UU, ADDONUAPLUS ####[address] Specificy Mcintosh,Urine 1.046 High 1.00 1-1.03 0 [facility] Comment on above: Order Comment: Name Collection Type:: Salinas Catheter Performed By: #### C UU, ADDONUAPLUS ####[address] Urobilinogen,Urine Normal Normal Normal [facility] Comment on above: Order Comment: Name Collection Type:: Salinas Catheter Performed By: #### C UU, ADDONUAPLUS ####[address] WBC CLUMP, Urine Occasional High None Seen [facility] Comment on above: Order Comment: Name Collection Type:: Salinas Catheter Performed By: #### C UU, ADDONUAPLUS ####[address] WBC,Urine 50-100 High 0-4 [facility] Comment on above: Order Comment: Name Collection Type:: Salinas Catheter Performed By: #### C UU, ADDONUAPLUS ####[address] Eosinophils Auto (Bld) [#/Vo l]Ordered By: Maricruz Godoy on 03-14-2024 Eosinophils (Bld) [#/Vol] Automated eosinophil count 0.0-0.45 [facility] Eosinophils/100 WBC Auto (Bl d)Ordered By: Maricruz Godoy on 03-14-2024 Eosinophils/100 WBC (Bld) Automated eosinophil % . [facility] Epithelial cells.squamous [# /area] in Urine sediment by Automated countOrdered By: Maricruz Godoy on 03-14-2024 Epithelial cells.squamous Auto (Urine sed) [#/Area] N/A [facility] Epithelial cells.squamous Auto (Urine sed) [#/Area] Epithelial cells.squamous [#/area] in Urine sediment by Automated count [facility] Erythrocyte distribution wid th Auto (RBC) [Ratio]Ordered By: Maricruz Godoy on 03-14-2024 Erythrocyte distribution width (RBC) [Ratio] Erythrocyte distribution width [Ratio] by Automated count 12.0-14.8 [facility] Erythrocyte distribution wid th [Ratio] by Automated countOrdered By: Maricruz Godoy on 03-14-2024 Erythrocyte distribution width (RBC) [Ratio] 13.5 % Normal 12.0-14.8 [facility] Comment on above: Performed By: #### B MP, MG, CBC ####[facility] [id number] Erythrocytes [#/area] in Uri ne sediment by Automated countOrdered By: Maricruz Godoy on 03-14-2024 RBC Auto (Urine sed) [#/Area] 50-100 [HPF] High 0-4 [facility] RBC Auto (Urine sed) [#/Area] Erythrocytes [#/area] in Urine sediment by Automated count High 0-4 [facility] Erythrocytes [#/volume] in B lood by Automated countOrdered By: Maricruz Godoy on 03-14-2024 RBC (Bld) [#/Vol] 3.79 10*6/uL Low 3.90-5.60 [facility] Comment on above: Performed By: #### B MP, MG, CBC ####[facility] [id number] [address] Glucose [Mass/volume] in Uri ne by Test stripOrdered By: Maricruz Godoy on 03-14-2024 Glucose Test strip (U) [Mass/Vol] Normal mg/dL Normal [facility] Glucose Test strip (U) [Mass/Vol] Glucose [Mass/volume] in Urine by Test strip Normal [facility] Hematocrit Auto (Bld) [Volum e fraction]Ordered By: Maricruz Godoy on 03-14-2024 Hematocrit (Bld) [Volume fraction] Hematocrit [Volume Fraction] of Blood by Automated count Low 38.8-50.0 [facility] Hematocrit [Volume Fraction] of Blood by Automated countOrdered By: Maricruz Godoy on 03-14-2024 Hematocrit (Bld) [Volume fraction] 33.9 % Low 38.8-50.0 [facility] Comment on above: Performed By: #### B MP, MG, CBC ####[facility] [id number] [address] Hemoglobin Test strip Ql (U) Ordered By: Maricruz Godoy on 03-14-2024 Hemoglobin Ql (U) 2+ High Negative [facility] Hemoglobin Ql (U) Hemoglobin [Presence ] in Urine by Test strip High Negative [facility] Hemoglobin [Mass/volume] in BloodOrdered By: Maricruz Godoy on 03-14-2024 Hemoglobin (Bld) [Mass/Vol] 11.3 g/dL Low 13.0-17.0 [facility] Comment on above: Performed By: #### B MP, MG, CBC ####[facility] [id number] [address] Hemoglobin (Bld) [Mass/Vol] Hemoglobin [Mass/volume] in Blood Low 13.0-17.0 [facility] Hyaline casts [#/area] in Ur ine sediment by Automated countOrdered By: Maricruz Godoy on 03-14-2024 Hyaline casts Auto (Urine sed) [#/Area] None [LPF] 0-8 [facility] Hyaline casts Auto (Urine sed) [#/Area] Hyaline casts [#/area] in Urine sediment by Automated count 0-8 [facility] Ketones Test strip Ql (U)Ord ered By: Maricruz Godoy on 03-14-2024 Ketones Ql (U) Ketones [Presence] i n Urine by Test strip Negative [facility] Ketones [Presence] in Urine by Test stripOrdered By: Maricruz Godoy on 03-14-2024 Ketones Ql (U) Negative Normal Negative [facility] Comment on above: Order Comment: Name Collection Type:: Salinas Catheter Performed By: #### C UU, ADDONUAPLUS ####[address] Laboratory - Microbiology an d Antimicrobial susceptibilityOrdered By: Maricruz Godoy on 03-14-2024 Bacteria identified Cx Nom (U) Strep agalactiae - (group b) Abnormal [facility] Leukocyte clumps [Presence] in Urine by AutomatedOrdered By: Maricruz Godoy on 03-14-2024 Leukocyte clumps Auto Ql (U) Occasional [LPF] High None Seen [facility] Leukocyte clumps Auto Ql (U) Leukocyte clumps [Presence] in Urine by Automated High None Seen [facility] Leukocyte esterase [Presence ] in Urine by Test stripOrdered By: Maricruz Godoy on 03-14-2024 Leukocyte esterase Test strip Ql (U) 3+ High Negative [facility] Comment on above: Order Comment: Name Collection Type:: Salinas Catheter Performed By: #### C UU, ADDONUAPLUS ####[facility] [id number] [place] [id number] [facility] Leukocyte esterase Test strip Ql (U) Leukocyte esterase [Presence] in Urine by Test strip High Negative [facility] Leukocytes [#/area] in Urine sediment by Automated countOrdered By: Maricruz Godoy on 03-14-2024 WBC Auto (Urine sed) [#/Area] 50-100 [HPF] High 0-4 [facility] WBC Auto (Urine sed) [#/Area] Leukocytes [#/area] in Urine sediment by Automated count High 0-4 [facility] Leukocytes [#/volume] correc junior for nucleated erythrocytes in Blood by Automated counOrdered By: Maricruz Godoy on 03-14-2024 WBC corrected for nucl RBC Auto (Bld) [#/Vol] 7.8 10*3/uL 4.1-10.5 [facility] WBC corrected for nucl RBC Auto (Bld) [#/Vol] Leukocytes [#/volume] corrected for nucleated erythrocytes in Blood by Automated coun 4.1-10.5 [facility] Leukocytes [#/volume] in Blo od by Automated countOrdered By: Maricruz Godoy on 03-14-2024 WBC (Bld) [#/Vol] 7.8 10*3/uL Normal 4.1-10.5 [facility] Comment on above: Performed By: #### B MP, MG, CBC ####[facility] [id number] [place] [id number] [facility] Lymphocytes Auto (Bld) [#/Vo l]Ordered By: Maricruz Godoy on 03-14-2024 Lymphocytes (Bld) [#/Vol] Lymphocytes [#/volume] in Blood by Automated count Low 1.00-4.8 [facility] Lymphocytes [#/volume] in Bl ood by Automated countOrdered By: Maricruz Godoy on 03-14-2024 Lymphocytes (Bld) [#/Vol] 0.7 10*3/uL Low 1.00-4.8 [facility] Comment on above: Performed By: #### B MP, MG, CBC ####[facility] [id number] [address] Lymphocytes/100 WBC Auto (Bl d)Ordered By: Maricruz Godoy on 03-14-2024 Lymphocytes/100 WBC (Bld) Lymphocytes/100 leukocytes in Blood by Automated count . [facility] Lymphocytes/100 leukocytes i n Blood by Automated countOrdered By: Maricruz Godoy on 03-14-2024 Lymphocytes/100 WBC (Bld) 8.5 % Normal . [facility] Comment on above: Performed By: #### B MP, MG, CBC ####[facility] [id number] [address] MCH Auto (RBC) [Entitic mass ]Ordered By: Maricruz Godoy on 03-14-2024 MCH (RBC) [Entitic mass] MCH [Entitic mass] by Automated count 27.5-35.2 [facility] MCH [Entitic mass] by Automa junior countOrdered By: Maricruz Godoy on 03-14-2024 MCH (RBC) [Entitic mass] 29.7 pg Normal 27.5-35.2 [facility] Comment on above: Performed By: #### B MP, MG, CBC ####[facility] [id number] [address] MCHC Auto (RBC) [Mass/Vol]Or dered By: Maricruz Godoy on 03-14-2024 MCHC (RBC) [Mass/Vol] 33.3 g/dL 32.5-35.6 [facility] MCHC (RBC) [Mass/Vol] MCHC [Mass/volume] by Automated count 32.5-35.6 [facility] MCV Auto (RBC) [Entitic vol] Ordered By: Maricruz Godoy on 03-14-2024 MCV (RBC) [Entitic vol] MCV [Entitic vol ume] by Automated count 83.5-101 [facility] MCV [Entitic volume] by Auto mated countOrdered By: Maricruz Godoy on 03-14-2024 MCV (RBC) [Entitic vol] 89.3 fL Normal 83.5-101 F [facility] Comment on above: Performed By: #### B MP, MG, CBC ####[facility] [id number] [place] [address] [facility] MR head/brain wo conon 03-14 MR head/brain wo con Normal [facility] Magnesium [Mass/volume] in S christine or PlasmaOrdered By: Maricruz Godoy on 03-14-2024 Magnesium [Mass/Vol] 1.8 mg/dL Low 1.9-2.7 [facility] Comment on above: Result Comment: PERF ORMED BY:[facility] [place] [address] [place], [place] [id number] MEDICAL DIRECTORBETHANY ALBRIGHT M.D. Performed By: #### B MP, MG, CBC ####[facility] [id number] [place] [address] [facility] Magnesium [Mass/Vol] Magnesium [Mass/vol ume] in Serum or Plasma Low 1.9-2.7 [facility] Monocytes Auto (Bld) [#/Vol] Ordered By: Maricruz Godoy on 03-14-2024 Monocytes (Bld) [#/Vol] Automated blood monocyte count High 0.0-0.8 [facility] Monocytes/100 WBC Auto (Bld) Ordered By: Maricruz Godoy on 03-14-2024 Monocytes/100 WBC (Bld) Automated monocyte % . [facility] Mucus [Presence] in Urine by AutomatedOrdered By: Maricruz Godoy on 03-14-2024 Mucus Auto Ql (U) Rare [LPF] [facility] Mucus Auto Ql (U) Mucus [Presence] in Urine by Automated [facility] Neutrophils Auto (Bld) [#/Vo l]Ordered By: Maricruz Godoy on 03-14-2024 Neutrophils (Bld) [#/Vol] Neutrophils [#/volume] in Blood by Automated count 1.8-7.7 [facility] Neutrophils [#/volume] in Bl ood by Automated countOrdered By: Maricruz Godoy on 03-14-2024 Neutrophils (Bld) [#/Vol] 6.0 10*3/uL Normal 1.8-7.7 [facility] Comment on above: Performed By: #### B MP, MG, CBC ####[facility] [id number] [address] Neutrophils/100 WBC Auto (Bl d)Ordered By: Maricruz Godoy on 03-14-2024 Neutrophils/100 WBC (Bld) Automated neutrophil % . [facility] Nitrite Test strip Ql (U)Ord ered By: Maricruz Godoy on 03-14-2024 Nitrite Ql (U) Negative Negative [facility] Nitrite Ql (U) Nitrite [Presence] i n Urine by Test strip Negative [facility] Nucleated erythrocytes [Pres ence] in Blood by Automated countOrdered By: Maricruz Godoy on 03-14-2024 Nucleated RBC Auto Ql (Bld) 0.1 /100{WBC} 0-0.5 [facility] Nucleated RBC Auto Ql (Bld) Nucleated erythrocytes [Presence] in Blood by Automated count 0-0.5 [facility] Platelet mean volume Auto (B ld) [Entitic vol]Ordered By: Maricruz Godoy on 03-14-2024 Platelet mean volume (Bld) [Entitic vol] Platelet mean volume [Entitic volume] in Blood by Automated count 6.6-10.1 [facility] Platelet mean volume [Entiti c volume] in Blood by Automated countOrdered By: Maricruz Godoy on 03-14-2024 Platelet mean volume (Bld) [Entitic vol] 8.0 fL Normal 6.6-10.1 [facility] Comment on above: Performed By: #### B MP, MG, CBC ####[facility] [id number] [place] [id number] [facility] Platelets Auto (Bld) [#/Vol] Ordered By: Maricruz Godoy on 03-14-2024 Platelets (Bld) [#/Vol] Platelets [#/vol ume] in Blood by Automated count 150-450 [facility] Platelets [#/volume] in Bloo d by Automated countOrdered By: Maricruz Godoy on 03-14-2024 Platelets (Bld) [#/Vol] 290 10*3/uL Normal 150-450 [facility] Comment on above: Performed By: #### B MP, MG, CBC ####[place] [id number] [address] Protein Test strip (U) [Mass /Vol]Ordered By: Maricruz Godoy on 03-14-2024 Protein (U) [Mass/Vol] Protein [Mass/vol ume] in Urine by Test strip High Negative [facility] Protein [Mass/volume] in Uri ne by Test stripOrdered By: Maricruz Godoy on 03-14-2024 Protein (U) [Mass/Vol] 70 mg/dL High Negative [facility] Comment on above: Order Comment: Name Collection Type:: Salinas Catheter Performed By: #### C UU, ADDONUAPLUS ####[address] RBC Auto (Bld) [#/Vol]Ordere d By: Maricruz Godoy on 03-14-2024 RBC (Bld) [#/Vol] Erythrocytes [#/volu me] in Blood by Automated count Low 3.90-5.60 [facility] Specific gravity Test strip (U) [Rel density]Ordered By: Maricruz Godoy on 03-14-2024 Specific gravity (U) [Rel density] 1.046 High 1.001-1.03 0 [facility] Specific gravity (U) [Rel density] Specific gravity of Urine by Test strip High 1.001-1.03 0 [facility] Urine Cultureon 03-14-2024 Bacteria identified Cx Nom (U) ORGANISM: Strep agalactiae - (group b) (O:STRAGA) Corona Count 40,000 PERFORMED BY: [facility] [address] [facility]ITAL[facility] [place] [id number] PATHOLOGIST LEATHERSMITH BETHANY ALBRIGHT M.D. Normal [facility] Comment on above: Performed By: #### C UU, ADDONUAPLUS ####[address] Urine appearanceOrdered By: Maricruz Godoy on 03-14-2024 Appearance (U) Clear Normal Clear [facility] Comment on above: Order Comment: Name Collection Type:: Sal[place] Catheter Performed By: #### C UU, ADDONUAPLUS ####[facility] [place] [id number] [facility] Urine cultureOrdered By: Jo-Ann Bingham on 03-14-2024 Bacteria identified Cx Nom (U) Group B Strep (Streptococcus agalactiae) Abnormal [facility] Urobilinogen Test strip (U) [Mass/Vol]Ordered By: Maricruz Godoy on 03-14-2024 Urobilinogen (U) [Mass/Vol] Normal mg/dL Normal [facility] Urobilinogen (U) [Mass/Vol] Urobilinogen [Mass/volume] in Urine by Test strip Normal [facility] WBC Auto (Bld) [#/Vol]Ordere d By: Maricruz Godoy on 03-14-2024 WBC (Bld) [#/Vol] Leukocytes [#/volume ] in Blood by Automated count 4.1-10.5 [facility] pH Test strip (U)Ordered By: Maricruz Godoy on 03-14-2024 pH (U) pH of Urine by Test strip 5.0-9.0 [facility] pH of Urine by Test stripOrd ered By: Maricruz Godoy on 03-14-2024 pH (U) 5.5 [pH] Normal 5.0-9.0 [facility] Comment on above: Order Comment: Name Collection Type:: [place] Catheter Performed By: #### C UU, ADDONUAPLUS ####[facility] [place] [id number] [facility] Basophils Auto (Bld) [#/Vol] on 03-13-2024 Basophils (Bld) [#/Vol] 0.0 10 3/uL 0.0-0.1 [facility] Basophils (Bld) [#/Vol] Automated basophil count 0.0-0.1 [facility] Basophils/100 WBC Auto (Bld) on 03-13-2024 Basophils/100 WBC (Bld) 0.5 % 0.2-2.0 F [facility] Basophils/100 WBC (Bld) Automated basophil % 0. 2-2.0 [facility] Buprenorphine [Presence] in Urineon 03-13-2024 Buprenorphine Ql (U) Negative NEGATIVE [facility] Comment on above: DRUG CLASS TEST SYST EM CUT-OFF CONCENTRATIONS ARE ASFOLLOWS:AMP (Amphetamine): 500 ng/mLBAR (Barbiturates): 200 ng/mLBZO (Benzodiazepines): 150 ng/mLBUP (Buprenorphine): 10 ng/mLCOC (Cocaine): 150 ng/mLmAMP (Methamphetamine): 500 ng/mLMTD (Methadone): 200 ng/mLOPI (Opiates): 100 ng/mLOXY (Oxycodone): 100 ng/mLPCP (Phencyclidine): 25 ng/mLTHC (Cannabinoids): 50 ng/mLTCA (Trycyclic Antidepressants): 300 ng/mL Buprenorphine Ql (U) Buprenorphine [Pres ence] in Urine NEGATIVE [facility] Comment on above: DRUG CLASS TEST SYST EM CUT-OFF CONCENTRATIONS ARE ASFOLLOWS:AMP (Amphetamine): 500 ng/mLBAR (Barbiturates): 200 ng/mLBZO (Benzodiazepines): 150 ng/mLBUP (Buprenorphine): 10 ng/mLCOC (Cocaine): 150 ng/mLmAMP (Methamphetamine): 500 ng/mLMTD (Methadone): 200 ng/mLOPI (Opiates): 100 ng/mLOXY (Oxycodone): 100 ng/mLPCP (Phencyclidine): 25 ng/mLTHC (Cannabinoids): 50 ng/mLTCA (Trycyclic Antidepressants): 300 ng/mL CT abdomen pelvis wo conon 1 CT abdomen pelvis wo con Normal [facility] ECG 12 lead ECGon 03-13-2024 ECG 12 lead ECG Normal [facility] Eosinophils/100 WBC Auto (Bl d)on 03-13-2024 Eosinophils/100 WBC (Bld) 1.3 % 0.9-7.0 [facility] Eosinophils/100 WBC (Bld) Automated eosinophil % 0.9-7.0 [facility] Erythrocyte distribution wid th Auto (RBC) [Ratio]on 03-13-2024 Erythrocyte distribution width (RBC) [Ratio] 12.8 % 11.0-15.0 [facility] Erythrocyte distribution width (RBC) [Ratio] Erythrocyte distribution width [Ratio] by Automated count 11.0-15.0 [facility] Estimated glomerular filtrat ion rate (GFR) non- Americanon 03-13-2024 GFR/1.73 sq M.predicted among non-blacks MDRD (S/P/Bld) [Vol rate/Area] mL/min/{1.73_m2} >=60 mL/min/1.7 3m 2 [facility] GFR/1.73 sq M.predicted among non-blacks MDRD (S/P/Bld) [Vol rate/Area] Estimated glomerular filtration rate (GFR) non- >=60 mL/min/1.7 3m 2 [facility] Globulin Calc (S) [Mass/Vol] on 03-13-2024 Globulin (S) [Mass/Vol] 3.6 g/dL F [facility] Globulin (S) [Mass/Vol] Serum globulin m easurement by calculation (mass/volume) [facility] Hematocrit Auto (Bld) [Volum e fraction]on 03-13-2024 Hematocrit (Bld) [Volume fraction] 33.4 % Low 42.0-54.0 [facility] Hematocrit (Bld) [Volume fraction] Hematocrit [Volume Fraction] of Blood by Automated count Low 42.0-54.0 [facility] Hemoglobin [Mass/volume] in Bloodon 03-13-2024 Hemoglobin (Bld) [Mass/Vol] 11.1 g/dL Low 14.0-18.0 [facility] Hemoglobin (Bld) [Mass/Vol] Hemoglobin [Mass/volume] in Blood Low 14.0-18.0 [facility] INR in Platelet poor plasma by Coagulation assayon 03-13-2024 INR Coag (PPP) [Relative time] 1.07 {INR} [facility] Comment on above: DESIRED INR:2.0-3.0 CONDITIONS NOT LISTED BELOW2.5-3.5 FOR PROSTHETIC HEART VALVE REPLACEMENT2.5-3.5 RECURRENT THROMBOSIS INR Coag (PPP) [Relative time] INR in Platelet poor plasma by Coagulation assay [facility] Comment on above: DESIRED INR:2.0-3.0 CONDITIONS NOT LISTED BELOW2.5-3.5 FOR PROSTHETIC HEART VALVE REPLACEMENT2.5-3.5 RECURRENT THROMBOSIS Laboratory - Chemistry and C hemistry - challengeon 03-13-2024 Ammonia (P) [Moles/Vol] 20 umol/L 11-32 F [facility] Albumin [Mass/Vol] 2.9 g/dL Low 3.4-5.0 [facility] ALP [Catalytic activity/Vol] 85 U/L 46-116 [facility] ALT [Catalytic activity/Vol] 17 U/L 16-63 [facility] AST [Catalytic activity/Vol] 17 U/L 15-37 [facility] Bilirubin [Mass/Vol] 0.6 mg/dL 0.2-1.0 [facility] Calcium [Mass/Vol] 8.7 mg/dL 8.5-10.1 [facility] Chloride [Moles/Vol] 101 mmol/L 98-107 [facility] CO2 [Moles/Vol] 27.1 mmol/L 21.0-32.0 [facility] Creatinine [Mass/Vol] 0.94 mg/dL 0.70-1.30 [facility] GFR/1.73 sq M.predicted MDRD (S/P/Bld) [Vol rate/Area] mL/min/{1.73_m2} >=60 mL/min/1.7 3m 2 [facility] Glucose [Mass/Vol] 91 mg/dL 74-106 [facility] Lipase [Catalytic activity/Vol] 29.0 U/L 16.0-77.0 [facility] Magnesium [Mass/Vol] 1.5 mg/dL Low 1.8-2.4 [facility] Potassium [Moles/Vol] 3.6 mmol/L 3.5-5.1 [facility] Protein [Mass/Vol] 6.5 g/dL 6.4-8.2 [facility] Sodium [Moles/Vol] 137 mmol/L 136-145 [facility] Urea nitrogen [Mass/Vol] 17.0 mg/dL 7.0-18.0 [facility] Urea nitrogen/Creatinine [Mass ratio] 18.1 mg/mg [facility] Laboratory - Drug toxicology on 03-13-2024 Amphetamines Ql (U) Negative NEGATIVE [facility] Benzodiazepines Ql (U) Negative [facility] Cocaine Ql (U) Negative NEGATIVE [facility] Opiates Ql (U) Positive Abnormal NEGATIVE [facility] Phencyclidine Ql (U) Negative NEGATIVE [facility] Laboratory - Hematology and Cell countson 03-13-2024 Immature granulocytes/100 WBC (Bld) 0.6 % High 0.0-0.5 [facility] Leukocytes [#/volume] correc junior for nucleated erythrocytes in Blood by Automated counon 03-13-2024 WBC corrected for nucl RBC Auto (Bld) [#/Vol] 8.7 10 3/uL 4.0-11.0 [facility] WBC corrected for nucl RBC Auto (Bld) [#/Vol] Leukocytes [#/volume] corrected for nucleated erythrocytes in Blood by Automated coun .-11. [facility] Lymphocytes Auto (Bld) [#/Vo l]on 03-13-2024 Lymphocytes (Bld) [#/Vol] 0.8 10 3/uL Low 1.2-3.8 [facility] Lymphocytes (Bld) [#/Vol] Lymphocytes [#/volume] in Blood by Automated count Low 1.2-3.8 [facility] Lymphocytes/100 WBC Auto (Bl d)on 03-13-2024 Lymphocytes/100 WBC (Bld) 8.8 % Low 20.5-60.0 [facility] Lymphocytes/100 WBC (Bld) Lymphocytes/100 leukocytes in Blood by Automated count Low 20.5-60.0 [facility] MCH Auto (RBC) [Entitic mass ]on 03-13-2024 MCH (RBC) [Entitic mass] 29.5 pg 25.9-34.0 [facility] MCH (RBC) [Entitic mass] MCH [Entitic mass] by Automated count 25.9-34.0 [facility] MCHC Auto (RBC) [Mass/Vol]on 03-13-2024 MCHC (RBC) [Mass/Vol] 33.2 g/dL 29.9-35.2 [facility] MCHC (RBC) [Mass/Vol] MCHC [Mass/volume] by Automated count 29.9-35.2 [facility] MCV Auto (RBC) [Entitic vol] on 03-13-2024 MCV (RBC) [Entitic vol] 88.8 fL 80.0-94.0 F [facility] MCV (RBC) [Entitic vol] MCV [Entitic vol ume] by Automated count 80.0-94.0 [facility] Methadone [Presence] in Urin e by Screen methodon 03-13-2024 Methadone Screen Ql (U) Negative NEGATIVE F [facility] Methadone Screen Ql (U) Methadone [Prese nce] in Urine by Screen method NEGATIVE [facility] Monocytes Auto (Bld) [#/Vol] on 03-13-2024 Monocytes (Bld) [#/Vol] 1.1 10 3/uL High 0.3-0.8 [facility] Monocytes (Bld) [#/Vol] Automated blood monocyte count High 0.3-0.8 [facility] Monocytes/100 WBC Auto (Bld) on 03-13-2024 Monocytes/100 WBC (Bld) 12.5 % High 1.7-12.0 F [facility] Monocytes/100 WBC (Bld) Automated monocyte % High 1. 7-12.0 [facility] Neutrophils Auto (Bld) [#/Vo l]on 03-13-2024 Neutrophils (Bld) [#/Vol] 6.6 10 3/uL High 1.4-6.5 [facility] Neutrophils (Bld) [#/Vol] Neutrophils [#/volume] in Blood by Automated count High 1.4-6.5 [facility] Neutrophils/100 WBC Auto (Bl d)on 03-13-2024 Neutrophils/100 WBC (Bld) 76.3 % High 43.0-75.0 [facility] Neutrophils/100 WBC (Bld) Automated neutrophil % High 43.0-75.0 [facility] No Panel Informationon 03-13 Urine Barbiturates Screen Negative NEGATIVE [facility] Urine Marijuana (THC) Screen Negative NEGATIVE [facility] Urine Methamphetamines Screen Negative NEGATIVE [facility] Eosinophils # (Auto) 0.1 10 3/uL 0.0-0.7 [facility] Ethyl Alcohol Level <3 mg/dL [facility] Comment on above: NOTE: 80 mg/dl is th e legal limit for a blood alcohol level Immature Granulocyte # (Auto) 0.05 10 3/uL High 0.00-0.03 [facility] Troponin I High Sensitivity 8.8 pg/mL 4.0-76.1 [facility] Comment on above: CUT-OFF POINTS HAVE [...] mean volume Auto (B ld) [Entitic vol]on 03-13-2024 Platelet mean volume (Bld) [Entitic vol] 9.5 fL 9.5-13.5 [facility] Platelet mean volume (Bld) [Entitic vol] Platelet mean volume [Entitic volume] in Blood by Automated count 9.5-13.5 [facility] Platelets Auto (Bld) [#/Vol] on 03-13-2024 Platelets (Bld) [#/Vol] 300 10 3/uL 150-450 [facility] Platelets (Bld) [#/Vol] Platelets [#/vol ume] in Blood by Automated count 150-450 [facility] Prothrombin time (PT)on 02-14 PT Coag (PPP) [Time] 11.3 s 9.0-11.6 [facility] PT Coag (PPP) [Time] Prothrombin time (PT) 9.0- 11.6 [facility] RBC Auto (Bld) [#/Vol]on RBC (Bld) [#/Vol] 3.76 10 6/uL Low 4.70-6.10 [facility] RBC (Bld) [#/Vol] Erythrocytes [#/volu me] in Blood by Automated count Low 4.70-6.10 [facility] Serum or plasma albumin/glob ulin mass ratioon 03-13-2024 Albumin/Globulin [Mass ratio] 0.8 {ratio} [facility] Albumin/Globulin [Mass ratio] Serum or plasma albumin/globulin mass ratio [facility] Serum or plasma anion gap de terminationon 03-13-2024 Anion gap [Moles/Vol] 12.5 [facility] Anion gap [Moles/Vol] Serum or plasma an ion gap determination [facility] Urine tricyclic antidepressa nt measurementon 03-13-2024 Tricyclic antidepressants (U) [Mass/Vol] Negative NEGATIVE [facility] Tricyclic antidepressants (U) [Mass/Vol] Urine tricyclic antidepressant measurement NEGATIVE [facility] oxyCODONE+oxyMORphone [Prese nce] in Urine by Screen methodon 03-13-2024 oxyCODONE+oxyMORphone Screen Ql (U) Negative NEGATIVE [facility] oxyCODONE+oxyMORphone Screen Ql (U) oxyCODONE+oxyMORphone [Presence] in Urine by Screen method NEGATIVE [facility] Basophils Auto (Bld) [#/Vol] on 03-06-2024 Basophils (Bld) [#/Vol] 0.0 10 3/uL 0.0-0.1 [facility] Basophils (Bld) [#/Vol] Automated basophil count 0.0-0.1 [facility] Basophils/100 WBC Auto (Bld) on 03-06-2024 Basophils/100 WBC (Bld) 0.3 % 0.2-2.0 F [facility] Basophils/100 WBC (Bld) Automated basophil % 0. 2-2.0 [facility] Eosinophils/100 WBC Auto (Bl d)on 03-06-2024 Eosinophils/100 WBC (Bld) 1.7 % 0.9-7.0 [facility] Eosinophils/100 WBC (Bld) Automated eosinophil % 0.9-7.0 [facility] Erythrocyte distribution wid th Auto (RBC) [Ratio]on 03-06-2024 Erythrocyte distribution width (RBC) [Ratio] 12.8 % 11.0-15.0 [facility] Erythrocyte distribution width (RBC) [Ratio] Erythrocyte distribution width [Ratio] by Automated count 11.0-15.0 [facility] Estimated glomerular filtrat ion rate (GFR) non- Americanon 03-06-2024 GFR/1.73 sq M.predicted among non-blacks MDRD (S/P/Bld) [Vol rate/Area] mL/min/{1.73_m2} >=60 mL/min/1.7 3m 2 [facility] GFR/1.73 sq M.predicted among non-blacks MDRD (S/P/Bld) [Vol rate/Area] Estimated glomerular filtration rate (GFR) non- >=60 mL/min/1.7 3m 2 [facility] Fibrin D-dimer [Presence] in Platelet poor plasma by Latex agglutinationon 03-06-2024 Fibrin D-dimer LA Ql (PPP) 0.33 mg/L FEU <=0.59 [facility] Comment on above: Increases in D-Dimer concentration observed withthromboembolic events can be variable due to localization,size, and age of the thrombus. Therefore, a thromboembolicevent cannot be diagnosed with certainty on the basis of thereference range. D-Dimers may also be elevated for a varietyof disorders including advanced age, , coronarydisease, cancer, liver disease, infection, inflammation,hematoma, DIC, trauma, post-surgery, diabetes, thrombolyticor anticoagulant therapy, stress, and generalizedhospitalization. Fibrin D-dimer LA Ql (PPP) Fibrin D-dimer [Presence] in Platelet poor plasma by Latex agglutination <=0.59 [facility] Comment on above: Increases in D-Dimer concentration observed withthromboembolic events can be variable due to localization,size, and age of the thrombus. Therefore, a thromboembolicevent cannot be diagnosed with certainty on the basis of thereference range. D-Dimers may also be elevated for a varietyof disorders including advanced age, , coronarydisease, cancer, liver disease, infection, inflammation,hematoma, DIC, trauma, post-surgery, diabetes, thrombolyticor anticoagulant therapy, stress, and generalizedhospitalization. Hematocrit Auto (Bld) [Volum e fraction]on 03-06-2024 Hematocrit (Bld) [Volume fraction] 35.6 % Low 42.0-54.0 [facility] Hematocrit (Bld) [Volume fraction] Hematocrit [Volume Fraction] of Blood by Automated count Low 42.0-54.0 [facility] Hemoglobin [Mass/volume] in Bloodon 03-06-2024 Hemoglobin (Bld) [Mass/Vol] 11.7 g/dL Low 14.0-18.0 [facility] Hemoglobin (Bld) [Mass/Vol] Hemoglobin [Mass/volume] in Blood Low 14.0-18.0 [facility] Laboratory - Chemistry and C hemistry - challengeon 03-06-2024 Calcium [Mass/Vol] 9.4 mg/dL 8.5-10.1 [facility] Chloride [Moles/Vol] 97 mmol/L Low 98-107 [facility] CO2 [Moles/Vol] 29.5 mmol/L 21.0-32.0 [facility] Creatinine [Mass/Vol] 1.07 mg/dL 0.70-1.30 [facility] GFR/1.73 sq M.predicted MDRD (S/P/Bld) [Vol rate/Area] mL/min/{1.73_m2} >=60 mL/min/1.7 3m 2 [facility] Glucose [Mass/Vol] 99 mg/dL 74-106 [facility] Potassium [Moles/Vol] 4.4 mmol/L 3.5-5.1 [facility] Sodium [Moles/Vol] 135 mmol/L Low 136-145 [facility] Urea nitrogen [Mass/Vol] 13.0 mg/dL 7.0-18.0 [facility] Urea nitrogen/Creatinine [Mass ratio] 12.1 mg/mg [facility] Laboratory - Hematology and Cell countson 03-06-2024 Immature granulocytes/100 WBC (Bld) 0.7 % High 0.0-0.5 [facility] Laboratory - Microbiology an d Antimicrobial susceptibilityon 03-06-2024 SARS-CoV-2 (COVID-19) RNA HOWIE+probe Ql (Unsp spec) Negative NEGATIVE [facility] Comment on above: This test has not be en FDA cleared or approved, but has beenauthorized by the FDA under an Emergency Use Authorization(EUA) for use by authorized laboratories certified underCLIA that meet the requirements to perform moderate or highcomplexity testing. This test has been authorized only forthe detection of proteins from SARS-CoV-2, not for any otherviruses or pathogens. The emergency use of this test isauthorized for the duration of the declaration thatcircumstances exist justifying the authorization ofemergency use of in vitro diagnostic tests for detectionand/or diagnosis of Covid-19 under section 564(b)(1) of theAct, 21 U.S.C. 360bbb-3(b)(1), unless the declaration isterminated or authorization is revoked sooner. Leukocytes [#/volume] correc junior for nucleated erythrocytes in Blood by Automated counon 03-06-2024 WBC corrected for nucl RBC Auto (Bld) [#/Vol] 8.9 10 3/uL 4.0-11.0 [facility] WBC corrected for nucl RBC Auto (Bld) [#/Vol] Leukocytes [#/volume] corrected for nucleated erythrocytes in Blood by Automated coun 4.0-11.0 [facility] Lymphocytes Auto (Bld) [#/Vo l]on 03-06-2024 Lymphocytes (Bld) [#/Vol] 0.8 10 3/uL Low 1.2-3.8 [facility] Lymphocytes (Bld) [#/Vol] Lymphocytes [#/volume] in Blood by Automated count Low 1.2-3.8 [facility] Lymphocytes/100 WBC Auto (Bl d)on 03-06-2024 Lymphocytes/100 WBC (Bld) 8.9 % Low 20.5-60.0 [facility] Lymphocytes/100 WBC (Bld) Lymphocytes/100 leukocytes in Blood by Automated count Low 20.5-60.0 [facility] MCH Auto (RBC) [Entitic mass ]on 03-06-2024 MCH (RBC) [Entitic mass] 29.8 pg 25.9-34.0 [facility] MCH (RBC) [Entitic mass] MCH [Entitic mass] by Automated count 25.9-34.0 [facility] MCHC Auto (RBC) [Mass/Vol]on 03-06-2024 MCHC (RBC) [Mass/Vol] 32.9 g/dL 29.9-35.2 [facility] MCHC (RBC) [Mass/Vol] MCHC [Mass/volume] by Automated count 29.9-35.2 [facility] MCV Auto (RBC) [Entitic vol] on 03-06-2024 MCV (RBC) [Entitic vol] 90.6 fL 80.0-94.0 F [facility] MCV (RBC) [Entitic vol] MCV [Entitic vol ume] by Automated count 80.0-94.0 [facility] Monocytes Auto (Bld) [#/Vol] on 03-06-2024 Monocytes (Bld) [#/Vol] 1.1 10 3/uL High 0.3-0.8 [facility] Monocytes (Bld) [#/Vol] Automated blood monocyte count High 0.3-0.8 [facility] Monocytes/100 WBC Auto (Bld) on 03-06-2024 Monocytes/100 WBC (Bld) 12.8 % High 1.7-12.0 [facility] Monocytes/100 WBC (Bld) Automated monocyte % High 1. 7-12.0 [facility] Neutrophils Auto (Bld) [#/Vo l]on 03-06-2024 Neutrophils (Bld) [#/Vol] 6.7 10 3/uL High 1.4-6.5 [facility] Neutrophils (Bld) [#/Vol] Neutrophils [#/volume] in Blood by Automated count High 1.4-6.5 [facility] Neutrophils/100 WBC Auto (Bl d)on 03-06-2024 Neutrophils/100 WBC (Bld) 75.6 % High 43.0-75.0 [facility] Neutrophils/100 WBC (Bld) Automated neutrophil % High 43.0-75.0 [facility] No Panel Informationon 03-06 Bedside Influenza Type A Antigen Negative [facility] Comment on above: Negative for Flu A p rotein antigen. Infection due to Flu Acannot be ruled out. Flu A antigen in the sample may bebelow the detection limit of the test. Bedside Influenza Type B Antigen Negative [facility] Comment on above: Negative for Flu B p rotein antigen. Infection due to Flu Bcannot be ruled out. Flu B antigen in the sample may bebelow the detection limit of the test. Eosinophils # (Auto) 0.2 10 3/uL 0.0-0.7 [facility] Immature Granulocyte # (Auto) 0.06 10 3/uL High 0.00-0.03 [facility] Troponin I High Sensitivity 5.0 pg/mL 4.0-76.1 [facility] Comment on above: CUT-OFF POINTS HAVE [...] mean volume Auto (B ld) [Entitic vol]on 03-06-2024 Platelet mean volume (Bld) [Entitic vol] 9.5 fL 9.5-13.5 [facility] Platelet mean volume (Bld) [Entitic vol] Platelet mean volume [Entitic volume] in Blood by Automated count .-13.5 [facility] Platelets Auto (Bld) [#/Vol] on 03-06-2024 Platelets (Bld) [#/Vol] 314 10 3/uL 150-450 [facility] Platelets (Bld) [#/Vol] Platelets [#/vol ume] in Blood by Automated count 150-450 [facility] RBC Auto (Bld) [#/Vol]on RBC (Bld) [#/Vol] 3.93 10 6/uL Low 4.70-6.10 [facility] RBC (Bld) [#/Vol] Erythrocytes [#/volu me] in Blood by Automated count Low 4.70-6.10 [facility] Serum or plasma anion gap de terminationon 03-06-2024 Anion gap [Moles/Vol] 12.9 [facility] Anion gap [Moles/Vol] Serum or plasma an ion gap determination [facility] Carbon dioxide, total [Moles /volume] in Serum or PlasmaOrdered By: Shannon Gonzalez on 03-01-2024 CO2 [Moles/Vol] 30.2 mmol/L Normal 21.0-31.0 [facility] Comment on above: Performed By: #### L YTES ####[id number] [place] [address] [facility] CO2 [Moles/Vol] Carbon dioxide, tota l [Moles/volume] in Serum or Plasma 21.0-31.0 [facility] Chloride [Moles/volume] in S christine or PlasmaOrdered By: Shannon Gonzalez on 03-01-2024 Chloride [Moles/Vol] 92 mmol/L Low 98-107 [facility] Comment on above: Performed By: #### L YTES ####[address] [place] [address] [facility] Chloride [Moles/Vol] Chloride [Moles/vol ume] in Serum or Plasma Low 98-107 [facility] ECG 12 lead ECGon 03-01-2024 ECG 12 lead ECG Normal [facility] ECG post procedureon 024 ECG post procedure Normal [facility] Potassium [Moles/volume] in Serum or PlasmaOrdered By: Shannon Gonzalez on 03-01-2024 Potassium [Moles/Vol] 3.9 mmol/L Normal 3.5-5.1 [facility] Comment on above: Hemolysis is present at a level that could interfere with the result.Contact lab if redraw is required Result Comment: Hemo lysis is present at a level that could interfere with the result. Contact lab if redraw is required Performed By: #### L YTES ####[address] [place] [address] [facility] Potassium [Moles/Vol] Potassium [Moles/v olume] in Serum or Plasma 3.5-5.1 [facility] Comment on above: Hemolysis is present at a level that could interfere with the result.Contact lab if redraw is required Serum or plasma anion gap de terminationOrdered By: Shannon Gonzalez on 03-01-2024 Anion gap [Moles/Vol] 11.7 mmol/L Normal 6.0-15.0 [facility] Comment on above: Result Comment: PERF ORMED BY:[address] [address] [address] [place], [place] [phone] MEDICAL DIRECTORBETHANY ALBRIGHT M.D. Performed By: #### L YTES ####[address] [address] [facility] Anion gap [Moles/Vol] Serum or plasma an ion gap determination 6.0-15.0 [facility] Sodium [Moles/volume] in Ser um or PlasmaOrdered By: Shannon Gonzalez on 03-01-2024 Sodium [Moles/Vol] 130 mmol/L Low 136-145 [facility] Comment on above: Performed By: #### L YTANGELA ####[address] [address] [facility] Sodium [Moles/Vol] Sodium [Moles/volume ] in Serum or Plasma Low 136-145 [facility] Basic Metabolic Panelon 02-12 Anion gap [Moles/Vol] 10.6 mmol/L Normal 6.0-15.0 [facility] Comment on above: Performed By: #### B MP, MG ####[address] [address] [facility] Chloride [Moles/Vol] 94 mmol/L Low 98-107 [facility] Comment on above: Performed By: #### B MP, MG ####[id number] [facility] CO2 [Moles/Vol] 29.2 mmol/L Normal 21.0-31.0 [facility] Comment on above: Performed By: #### B MP, MG ####[id number] [facility] Creatinine Clr Calc Pharmacy 95.65 Normal [facility] Comment on above: Performed By: #### B MP, MG ####[id number] [place] GFR/1.73 sq M.predicted MDRD (S/P/Bld) [Vol rate/Area] mL/min/{1.73_m2} Normal [facility] Comment on above: Performed By: #### B MP, MG ####[id number] [place] [id number] [facility] Potassium [Moles/Vol] 3.8 mmol/L Normal 3.5-5.1 [facility] Comment on above: Performed By: #### B MP, MG ####[id number] [place] [id number] [facility] Sodium [Moles/Vol] 130 mmol/L Low 136-145 [facility] Comment on above: Performed By: #### B MP, MG ####[id number] [place] [id number] [facility] Calcium [Mass/volume] in Ser um or PlasmaOrdered By: Maricruz Godoy on 02-29-2024 Calcium [Mass/Vol] 8.6 mg/dL Normal 8.6-10.3 [facility] Comment on above: Performed By: #### B MP, MG ####[id number] [facility] Calcium [Mass/Vol] Calcium [Mass/volume ] in Serum or Plasma 8.6-10.3 [facility] Creatinine [Mass/volume] in Serum or PlasmaOrdered By: Maricruz Godoy on 02-29-2024 Creatinine [Mass/Vol] 0.69 mg/dL Low 0.70-1.30 [facility] Comment on above: Performed By: #### B MP, MG ####[id number] [facility] Creatinine [Mass/Vol] Creatinine [Mass/v olume] in Serum or Plasma Low 0.70-1.30 [facility] ECH echo limitedon 4 ECH echo limited Normal [facility] Glucose [Mass/volume] in Ser um or PlasmaOrdered By: Maricruz Godoy on 02-29-2024 Glucose [Mass/Vol] 86 mg/dL Normal 70-100 [facility] Comment on above: ADA recommended refe rence rangeRandom Glucose Reference Range is dependent on time and content of last meal. Glucose of more than 200 mg/dL in a nonstressed, ambulatory subject supports the diagnosis of Diabetes Mellitus. Result Comment: [place] om Glucose Reference Range is dependent on time and content of last meal. Glucose of more than 200 mg/dL in a nonstressed, ambulatory subject supports the diagnosis of Diabetes Mellitus. ADA recommended reference range Performed By: #### B MP, MG ####[address] [place] [address] [facility] Glucose [Mass/Vol] Glucose [Mass/volume ] in Serum or Plasma 70-100 [facility] Comment on above: ADA recommended refe rence rangeRandom Glucose Reference Range is dependent on time and content of last meal. Glucose of more than 200 mg/dL in a nonstressed, ambulatory subject supports the diagnosis of Diabetes Mellitus. Magnesium [Mass/volume] in S christine or PlasmaOrdered By: Maricruz Godoy on 02-29-2024 Magnesium [Mass/Vol] 1.5 mg/dL Low 1.9-2.7 [facility] Comment on above: Result Comment: PERF ORMED BY:[address] [place], [place] [phone] MEDICAL DIRECTORBETHANY ALBRIGHT M.D. Performed By: #### B LISA MG ####[address] [address] [facility] Magnesium [Mass/Vol] Magnesium [Mass/vol ume] in Serum or Plasma Low 1.9-2.7 [facility] No Panel InformationOrdered By: Maricruz Godoy on 02-29-2024 Estimated GFR (CKD-EPI) > 60.0 mL/Min [facility] Creatinine Clearance (Chem 95.65 [facility] Urea nitrogen [Mass/volume] in Serum or PlasmaOrdered By: Maricruz Godoy on 02-29-2024 Urea nitrogen [Mass/Vol] 11 mg/dL Normal 7-25 [facility] Comment on above: Performed By: #### B LISA, MG ####[id number] [facility] Urea nitrogen [Mass/Vol] Urea nitrogen [Mass/volume] in Serum or Plasma 12-06 [facility] XR chest 2V*on 02-29-2024 XR chest 2V* Normal [facility] Activated partial thrombopla stin time (aPTT) in platelet poor plasma by coagulation aOrdered By: Sin Mabry on 02-28-2024 aPTT Coag (PPP) [Time] 42.4 s High 25.1-36.5 [facility] Comment on above: A hematocrit value g reater than 55% may lead to inaccurate results in coagulation testing. Patients having hematocrit values >55% require a special collection tube for coagulation studies. Please contact the laboratory at [phone] for redraw instructions. Alanine aminotransferase [En zymatic activity/volume] in Serum or PlasmaOrdered By: Sin Mabry on 02-28-2024 ALT [Catalytic activity/Vol] 10 U/L Normal [facility] Comment on above: Performed By: #### C BC, BNP, BMP, PT, PTT, HEPATIC, CK, HS TROP ####[facility] [id number] [place] [address] [facility] ALT [Catalytic activity/Vol] Alanine aminotransferase [Enzymatic activity/volume] in Serum or Plasma [facility] Albumin [Mass/volume] in Ser um or Plasma by Bromocresol green (BCG) dye binding methoOrdered By: Sin Mabry on 02-28-2024 Albumin BCG dye [Mass/Vol] 3.7 g/dL 3.5-5.7 [facility] Albumin BCG dye [Mass/Vol] Albumin [Mass/volume] in Serum or Plasma by Bromocresol green (BCG) dye binding metho 3.5-5.7 [facility] Alkaline phosphatase [Enzyma tic activity/volume] in Serum or PlasmaOrdered By: Sin Mabry on 02-28-2024 ALP [Catalytic activity/Vol] 71 U/L Normal 34-104 [facility] Comment on above: Performed By: #### C BC, BNP, BMP, PT, PTT, HEPATIC, CK, HS TROP ####[facility] [id number] [place] [address] [facility] ALP [Catalytic activity/Vol] Alkaline phosphatase [Enzymatic activity/volume] in Serum or Plasma 34-104 [facility] Aspartate aminotransferase [ Enzymatic activity/volume] in Serum or PlasmaOrdered By: Sin Mabry on 02-28-2024 AST [Catalytic activity/Vol] 14 U/L Normal 13-39 [facility] Comment on above: Performed By: #### C BC, BNP, BMP, PT, PTT, HEPATIC, CK, HS TROP ####[id number] [facility] AST [Catalytic activity/Vol] Aspartate aminotransferase [Enzymatic activity/volume] in Serum or Plasma 13-39 [facility] Automated basophil %Ordered By: Sin Mabry on 02-28-2024 Basophils/100 WBC (Bld) 0.4 % Normal . [facility] Comment on above: Performed By: #### C BC, BNP, BMP, PT, PTT, HEPATIC, CK, HS TROP ####[address] Automated basophil countOrde red By: Sin Mabry on 02-28-2024 Basophils (Bld) [#/Vol] 0.0 10*3/uL Normal 0.0-0.2 [facility] Comment on above: Result Comment: PERF ORMED BY:[address] [place], [place] [phone] MEDICAL DIRECTORBETHANY ALBRIGHT M.D. Performed By: #### C BC, BNP, BMP, PT, PTT, HEPATIC, CK, HS TROP ####[address] Automated blood monocyte cou ntOrdered By: Sin Mabry on 02-28-2024 Monocytes (Bld) [#/Vol] 0.6 10*3/uL Normal 0.0-0.8 [facility] Comment on above: Performed By: #### C BC, BNP, BMP, PT, PTT, HEPATIC, CK, HS TROP ####[address] Automated eosinophil %Ordere d By: Sin Mabry on 02-28-2024 Eosinophils/100 WBC (Bld) 0.9 % Normal . [facility] Comment on above: Performed By: #### C BC, BNP, BMP, PT, PTT, HEPATIC, CK, HS TROP ####[address] Automated eosinophil countOr dered By: Sin Mabry on 02-28-2024 Eosinophils (Bld) [#/Vol] 0.1 10*3/uL Normal 0.0-0.45 [facility] Comment on above: Performed By: #### C BC, BNP, BMP, PT, PTT, HEPATIC, CK, HS TROP ####[address] Automated monocyte %Ordered By: Sin Mabry on 02-28-2024 Monocytes/100 WBC (Bld) 10.0 % Normal . [facility] Comment on above: Performed By: #### C BC, BNP, BMP, PT, PTT, HEPATIC, CK, HS TROP ####[address] Automated neutrophil %Ordere d By: Sin Mabry on 02-28-2024 Neutrophils/100 WBC (Bld) 78.8 % Normal . [facility] Comment on above: Performed By: #### C BC, BNP, BMP, PT, PTT, HEPATIC, CK, HS TROP ####[place] [id number] [facility] BNP ser/plasOrdered By: Justino Mabry on 02-28-2024 Natriuretic peptide B (Bld) [Mass/Vol] 614.0 pg/mL High 5-100 [facility] Comment on above: Result Comment: PERF ORMED BY:[address] [place], [place] [phone] MEDICAL DIRECTORBETHANY ALBRIGHT M.D. Performed By: #### C BC, BNP, BMP, PT, PTT, HEPATIC, CK, HS TROP ####[place] [id number] [facility] Basic Metabolic Panelon 10-4 Creatinine Clr Calc Pharmacy 95.65 Normal [facility] Comment on above: Result Comment: PERF ORMED BY:[address] [place], [place] [phone] MEDICAL DIRECTORBETHANY ALBRIGHT M.D. Performed By: #### C BC, BNP, BMP, PT, PTT, HEPATIC, CK, HS TROP ####[address] GFR/1.73 sq M.predicted MDRD (S/P/Bld) [Vol rate/Area] mL/min/{1.73_m2} Normal [facility] Comment on above: Performed By: #### C BC, BNP, BMP, PT, PTT, HEPATIC, CK, HS TROP ####[address] Basophils Auto (Bld) [#/Vol] Ordered By: Sin Mabry on 02-28-2024 Basophils (Bld) [#/Vol] Automated basophil count 0.0-0.2 [facility] Basophils/100 WBC Auto (Bld) Ordered By: Sin Mabry on 02-28-2024 Basophils/100 WBC (Bld) Automated basophil % . [facility] Bilirubin.direct [Mass/volum e] in Serum or PlasmaOrdered By: Sin Mabry on 02-28-2024 Bilirubin.direct [Mass/Vol] 0.20 mg/dL High 0.03-0.18 [facility] Bilirubin.direct [Mass/Vol] Bilirubin.direct [Mass/volume] in Serum or Plasma High 0.03-0.18 [facility] Bilirubin.total [Mass/volume ] in Serum or PlasmaOrdered By: Sin Mabry on 02-28-2024 Bilirubin [Mass/Vol] 0.5 mg/dL Normal 0.3-1.0 [facility] Comment on above: Performed By: #### C BC, BNP, BMP, PT, PTT, HEPATIC, CK, HS TROP ####[address] Bilirubin [Mass/Vol] Bilirubin.total [Mass/volume] in Serum or Plasma 0.3-1.0 [facility] Calcium [Mass/volume] in Ser um or PlasmaOrdered By: Sin Mabry on 02-28-2024 Calcium [Mass/Vol] 9.0 mg/dL Normal 8.6-10.3 [facility] Comment on above: Performed By: #### C BC, BNP, BMP, PT, PTT, HEPATIC, CK, HS TROP ####[address] Carbon dioxide, total [Moles /volume] in Serum or PlasmaOrdered By: Sin Mabry on 02-28-2024 CO2 [Moles/Vol] 25.1 mmol/L Normal 21.0-31.0 [facility] Comment on above: Performed By: #### C BC, BNP, BMP, PT, PTT, HEPATIC, CK, HS TROP ####[address] Chloride [Moles/volume] in S christine or PlasmaOrdered By: Sin Mabry on 02-28-2024 Chloride [Moles/Vol] 96 mmol/L Low 98-107 [facility] Comment on above: Performed By: #### C BC, BNP, BMP, PT, PTT, HEPATIC, CK, HS TROP ####[address] Complete Blood Count Auto Di ffon 02-28-2024 Mean Corpuscular HGB Conc 33.7 g/dL Normal 32.5-35.6 [facility] Comment on above: Performed By: #### C BC, BNP, BMP, PT, PTT, HEPATIC, CK, HS TROP ####[place] [id number] [facility] Monocytes/100 WBC (Bld) 19.63 % Normal 0.00-20.00 [facility] Comment on above: Performed By: #### C BC, BNP, BMP, PT, PTT, HEPATIC, CK, HS TROP ####[address] NRBC% 0.1 /100{WBC} Normal 0-0.5 [facility] Comment on above: Performed By: #### C BC, BNP, BMP, PT, PTT, HEPATIC, CK, HS TROP ####[facility] Creatine kinase [Enzymatic a ctivity/volume] in Serum or PlasmaOrdered By: Sin Mabry on 02-28-2024 CK [Catalytic activity/Vol] 26 U/L Low 30-223 [facility] Comment on above: Performed By: #### C BC, BNP, BMP, PT, PTT, HEPATIC, CK, HS TROP ####[place] [id number] [place] [id number] [facility] CK [Catalytic activity/Vol] Creatine kinase [Enzymatic activity/volume] in Serum or Plasma [facility] Creatinine [Mass/volume] in Serum or PlasmaOrdered By: Sin Mabry on 02-28-2024 Creatinine [Mass/Vol] 0.77 mg/dL Normal 0.70-1.30 [facility] Comment on above: Performed By: #### C BC, BNP, BMP, PT, PTT, HEPATIC, CK, HS TROP ####[address] ECG 12 lead ECGon 02-28-2024 ECG 12 lead ECG Normal [facility] Eosinophils Auto (Bld) [#/Vo l]Ordered By: Sin Mabry on 02-28-2024 Eosinophils (Bld) [#/Vol] Automated eosinophil count 0.0-0.45 [facility] Eosinophils/100 WBC Auto (Bl d)Ordered By: Sin Mabry on 02-28-2024 Eosinophils/100 WBC (Bld) Automated eosinophil % . [facility] Erythrocyte distribution wid th Auto (RBC) [Ratio]Ordered By: Sin Mabry on 02-28-2024 Erythrocyte distribution width (RBC) [Ratio] Erythrocyte distribution width [Ratio] by Automated count 12.0-14.8 [facility] Erythrocyte distribution wid th [Ratio] by Automated countOrdered By: Sin Mabry on 02-28-2024 Erythrocyte distribution width (RBC) [Ratio] 13.8 % Normal 12.0-14.8 [facility] Comment on above: Performed By: #### C BC, BNP, BMP, PT, PTT, HEPATIC, CK, HS TROP ####[facility]1111 [place] [id number] [facility] Erythrocytes [#/volume] in B lood by Automated countOrdered By: Sin Mabry on 02-28-2024 RBC (Bld) [#/Vol] 4.09 10*6/uL Normal 3.90-5.60 [facility] Comment on above: Performed By: #### C BC, BNP, BMP, PT, PTT, HEPATIC, CK, HS TROP ####[facility] [place] [id number] [facility] Globulin Calc (S) [Mass/Vol] Ordered By: Sin Mabry on 02-28-2024 Globulin (S) [Mass/Vol] Serum globulin m easurement by calculation (mass/volume) [facility] Glucose [Mass/volume] in Ser um or PlasmaOrdered By: Sin Mabry on 02-28-2024 Glucose [Mass/Vol] 133 mg/dL High 70-100 [facility] Comment on above: ADA recommended refe rence rangeRandom Glucose Reference Range is dependent on time and content of last meal. Glucose of more than 200 mg/dL in a nonstressed, ambulatory subject supports the diagnosis of Diabetes Mellitus. Result Comment: [place] om Glucose Reference Range is dependent on time and content of last meal. Glucose of more than 200 mg/dL in a nonstressed, ambulatory subject supports the diagnosis of Diabetes Mellitus. ADA recommended reference range Performed By: #### C BC, BNP, BMP, PT, PTT, HEPATIC, CK, HS TROP ####[facility] [place] [id number] [facility] Hematocrit Auto (Bld) [Volum e fraction]Ordered By: Sin Mabry on 02-28-2024 Hematocrit (Bld) [Volume fraction] Hematocrit [Volume Fraction] of Blood by Automated count Low 38.8-50.0 [facility] Hematocrit [Volume Fraction] of Blood by Automated countOrdered By: Sin Mabry on 02-28-2024 Hematocrit (Bld) [Volume fraction] 36.7 % Low 38.8-50.0 [facility] Comment on above: Performed By: #### C BC, BNP, BMP, PT, PTT, HEPATIC, CK, HS TROP ####[address] Hemoglobin [Mass/volume] in BloodOrdered By: Sin Mabry on 02-28-2024 Hemoglobin (Bld) [Mass/Vol] 12.3 g/dL Low 13.0-17.0 [facility] Comment on above: Performed By: #### C BC, BNP, BMP, PT, PTT, HEPATIC, CK, HS TROP ####[address] Hemoglobin (Bld) [Mass/Vol] Hemoglobin [Mass/volume] in Blood Low 13.0-17.0 [facility] Hepatic Panelon 02-28-2024 Albumin [Mass/Vol] 3.7 g/dL Normal 3.5-5.7 [facility] Comment on above: Performed By: #### C BC, BNP, BMP, PT, PTT, HEPATIC, CK, HS TROP ####[address] Bilirubin,Indirect 0.3 mg/dL Normal [facility] Comment on above: Performed By: #### C BC, BNP, BMP, PT, PTT, HEPATIC, CK, HS TROP ####[address] Bilirubin.indirect [Mass/Vol] 0.20 mg/dL High 0.03-0.18 [facility] Comment on above: Performed By: #### C BC, BNP, BMP, PT, PTT, HEPATIC, CK, HS TROP ####[address] INR in Platelet poor plasma by Coagulation assayOrdered By: Sin Mabry on 02-28-2024 INR Coag (PPP) [Relative time] 2.0 {INR} Normal [facility] Comment on above: INR Therapeutic Rang [...] valves: 3 - 4.5 Performed By: #### C BC, BNP, BMP, PT, PTT, HEPATIC, CK, HS TROP ####[facility] [id number] [place] [address] [facility] INR Coag (PPP) [Relative time] INR in Platelet poor plasma by Coagulation assay [facility] Comment on above: INR Therapeutic Rang [...] with mechanical heart valves: 3 - 4.5 Leukocytes [#/volume] correc junior for nucleated erythrocytes in Blood by Automated counOrdered By: Sin Mabry on 02-28-2024 WBC corrected for nucl RBC Auto (Bld) [#/Vol] 5.9 10*3/uL 4.1-10.5 [facility] WBC corrected for nucl RBC Auto (Bld) [#/Vol] Leukocytes [#/volume] corrected for nucleated erythrocytes in Blood by Automated coun 4.1-10.5 [facility] Leukocytes [#/volume] in Blo od by Automated countOrdered By: Sin Mabry on 02-28-2024 WBC (Bld) [#/Vol] 5.9 10*3/uL Normal 4.1-10.5 [facility] Comment on above: Performed By: #### C BC, BNP, BMP, PT, PTT, HEPATIC, CK, HS TROP ####[facility] [id number] Lymphocytes Auto (Bld) [#/Vo l]Ordered By: Sin Mabry on 02-28-2024 Lymphocytes (Bld) [#/Vol] Lymphocytes [#/volume] in Blood by Automated count Low 1.00-4.8 [facility] Lymphocytes [#/volume] in Bl ood by Automated countOrdered By: Sin Mabry on 02-28-2024 Lymphocytes (Bld) [#/Vol] 0.6 10*3/uL Low 1.00-4.8 [facility] Comment on above: Performed By: #### C BC, BNP, BMP, PT, PTT, HEPATIC, CK, HS TROP ####[address] Lymphocytes/100 WBC Auto (Bl d)Ordered By: Sin Mabry on 02-28-2024 Lymphocytes/100 WBC (Bld) Lymphocytes/100 leukocytes in Blood by Automated count . [facility] Lymphocytes/100 leukocytes i n Blood by Automated countOrdered By: Sin Mabry on 02-28-2024 Lymphocytes/100 WBC (Bld) 9.9 % Normal . [facility] Comment on above: Performed By: #### C BC, BNP, BMP, PT, PTT, HEPATIC, CK, HS TROP ####[address] MCH Auto (RBC) [Entitic mass ]Ordered By: Sin Mabry on 02-28-2024 MCH (RBC) [Entitic mass] MCH [Entitic mass] by Automated count 27.5-35.2 [facility] MCH [Entitic mass] by Automa junior countOrdered By: Sin Mabry on 02-28-2024 MCH (RBC) [Entitic mass] 30.2 pg Normal 27.5-35.2 [facility] Comment on above: Performed By: #### C BC, BNP, BMP, PT, PTT, HEPATIC, CK, HS TROP ####[address] MCHC Auto (RBC) [Mass/Vol]Or dered By: Sin Mabry on 02-28-2024 MCHC (RBC) [Mass/Vol] 33.7 g/dL 32.5-35.6 [facility] MCHC (RBC) [Mass/Vol] MCHC [Mass/volume] by Automated count 32.5-35.6 [facility] MCV Auto (RBC) [Entitic vol] Ordered By: Sin Mabry on 02-28-2024 MCV (RBC) [Entitic vol] MCV [Entitic vol ume] by Automated count 83.5-101 [facility] MCV [Entitic volume] by Auto mated countOrdered By: Sin Mabry on 02-28-2024 MCV (RBC) [Entitic vol] 89.6 fL Normal 83.5-101 [facility] Comment on above: Performed By: #### C BC, BNP, BMP, PT, PTT, HEPATIC, CK, HS TROP ####[facility] [id number] Monocyte distribution width [Entitic volume] in Blood by AutomatedOrdered By: Sin Mabry on 02-28-2024 Monocyte distribution width Auto (Bld) [Entitic vol] 19.63 % 0.00-20.00 [facility] Monocyte distribution width Auto (Bld) [Entitic vol] Monocyte distribution width [Entitic volume] in Blood by Automated 0.00-20.00 [facility] Monocytes Auto (Bld) [#/Vol] Ordered By: Sin Mabry on 02-28-2024 Monocytes (Bld) [#/Vol] Automated blood monocyte count 0.0-0.8 [facility] Monocytes/100 WBC Auto (Bld) Ordered By: Sin Mabry on 02-28-2024 Monocytes/100 WBC (Bld) Automated monocyte % . [facility] Natriuretic peptide B [Mass/ Vol]Ordered By: Sin Mabry on 02-28-2024 Natriuretic peptide B (Bld) [Mass/Vol] BNP ser/plas High 5-100 [facility] Neutrophils Auto (Bld) [#/Vo l]Ordered By: Sin Mabry on 02-28-2024 Neutrophils (Bld) [#/Vol] Neutrophils [#/volume] in Blood by Automated count 1.8-7.7 [facility] Neutrophils [#/volume] in Bl ood by Automated countOrdered By: Sin Mabry on 02-28-2024 Neutrophils (Bld) [#/Vol] 4.6 10*3/uL Normal 1.8-7.7 [facility] Comment on above: Performed By: #### C BC, BNP, BMP, PT, PTT, HEPATIC, CK, HS TROP ####[facility] [id number] [place] [address] [facility] Neutrophils/100 WBC Auto (Bl d)Ordered By: Sin Mabry on 02-28-2024 Neutrophils/100 WBC (Bld) Automated neutrophil % . [facility] No Panel InformationOrdered By: Sin Mabry on 02-28-2024 Estimated GFR (CKD-EPI) > 60.0 mL/Min [facility] Creatinine Clearance (Chem 95.65 [facility] Nucleated erythrocytes [Pres ence] in Blood by Automated countOrdered By: Sin Mabry on 02-28-2024 Nucleated RBC Auto Ql (Bld) 0.1 /100{WBC} 0-0.5 [facility] Nucleated RBC Auto Ql (Bld) Nucleated erythrocytes [Presence] in Blood by Automated count 0-0.5 [facility] Partial Thromboplastin Timeo n 02-28-2024 aPTT Coag (Bld) [Time] 42.4 s High 25.1-36.5 [facility] Comment on above: Result Comment: A he matocrit value greater than 55% may lead to inaccurate results in coagulation testing. Patients having hematocrit values >55% require a special collection tube for coagulation studies. Please contact the laboratory at [phone] for redraw instructions.PERFORMED BY:[facility] [place], [place] [phone] MEDICAL DIRECTORBETHANY ALBRIGHT M.D. Performed By: #### C BC, BNP, BMP, PT, PTT, HEPATIC, CK, HS TROP ####[facility] [id number] [place] [address] [facility] Platelet mean volume Auto (B ld) [Entitic vol]Ordered By: Sin Mabry on 02-28-2024 Platelet mean volume (Bld) [Entitic vol] Platelet mean volume [Entitic volume] in Blood by Automated count 6.6-10.1 [facility] Platelet mean volume [Entiti c volume] in Blood by Automated countOrdered By: Sin Mabry on 02-28-2024 Platelet mean volume (Bld) [Entitic vol] 8.4 fL Normal 6.6-10.1 [facility] Comment on above: Performed By: #### C BC, BNP, BMP, PT, PTT, HEPATIC, CK, HS TROP ####[place] [id number] Platelets Auto (Bld) [#/Vol] Ordered By: Sin Mabry on 02-28-2024 Platelets (Bld) [#/Vol] Platelets [#/vol ume] in Blood by Automated count 150-450 [facility] Platelets [#/volume] in Bloo d by Automated countOrdered By: Sin Mabry on 02-28-2024 Platelets (Bld) [#/Vol] 238 10*3/uL Normal 150-450 [facility] Comment on above: Performed By: #### C BC, BNP, BMP, PT, PTT, HEPATIC, CK, HS TROP ####[place] [id number] [place] Potassium [Moles/volume] in Serum or PlasmaOrdered By: Sin Mabry on 02-28-2024 Potassium [Moles/Vol] 3.9 mmol/L Normal 3.5-5.1 [facility] Comment on above: Performed By: #### C BC, BNP, BMP, PT, PTT, HEPATIC, CK, HS TROP ####[place] [id number] [place] Protein [Mass/volume] in Ser um or PlasmaOrdered By: Sin Mabry on 02-28-2024 Protein [Mass/Vol] 6.9 g/dL Normal 6.4-8.9 [facility] Comment on above: Performed By: #### C BC, BNP, BMP, PT, PTT, HEPATIC, CK, HS TROP ####[facility] [place] [address] [facility] Protein [Mass/Vol] Protein [Mass/volume ] in Serum or Plasma 6.4-8.9 [facility] Prothrombin time (PT)Ordered By: Sin Mabry on 02-28-2024 PT Coag (PPP) [Time] 22.4 s High 9.0-12.9 [facility] Comment on above: A hematocrit value g reater than 55% may lead to inaccurate results in coagulation testing. Patients having hematocrit values >55% require a special collection tube for coagulation studies. Please contact the laboratory at [phone] for redraw instructions. Result Comment: A he matocrit value greater than 55% may lead to inaccurate results in coagulation testing. Patients having hematocrit values >55% require a special collection tube for coagulation studies. Please contact the laboratory at [phone] for redraw instructions. Performed By: #### C BC, BNP, BMP, PT, PTT, HEPATIC, CK, HS TROP ####[facility] [place] [address] [facility] PT Coag (PPP) [Time] Prothrombin time (PT) High 9.0- 12.9 [facility] Comment on above: A hematocrit value g reater than 55% may lead to inaccurate results in coagulation testing. Patients having hematocrit values >55% require a special collection tube for coagulation studies. Please contact the laboratory at [phone] for redraw instructions. RBC Auto (Bld) [#/Vol]Ordere d By: Sin Mabry on 02-28-2024 RBC (Bld) [#/Vol] Erythrocytes [#/volu me] in Blood by Automated count 3.90-5.60 [facility] Serum globulin measurement b y calculation (mass/volume)Ordered By: Sin Mabry on 02-28-2024 Globulin (S) [Mass/Vol] 3.2 g/dL Normal F [facility] Comment on above: Performed By: #### C BC, BNP, BMP, PT, PTT, HEPATIC, CK, HS TROP ####[place] [id number] [place] [id number] [facility] Serum or plasma albumin/glob ulin mass ratioOrdered By: Sin Mabry on 02-28-2024 Albumin/Globulin [Mass ratio] 1.2 {ratio} Normal [facility] Comment on above: Performed By: #### C BC, BNP, BMP, PT, PTT, HEPATIC, CK, HS TROP ####[facility] [place] [address] [facility] Albumin/Globulin [Mass ratio] Serum or plasma albumin/globulin mass ratio [facility] Serum or plasma anion gap de terminationOrdered By: Sin Mabry on 02-28-2024 Anion gap [Moles/Vol] 10.8 mmol/L Normal 6.0-15.0 [facility] Comment on above: Performed By: #### C BC, BNP, BMP, PT, PTT, HEPATIC, CK, HS TROP ####[address] [address] [facility] Serum or plasma non-glucuron idated bilirubin measurement (mass/volume)Ordered By: Sin Mabry on 02-28-2024 Bilirubin.indirect [Mass/Vol] 0.3 mg/dL [facility] Bilirubin.indirect [Mass/Vol] Serum or plasma non-glucuronidated bilirubin measurement (mass/volume) [facility] Sodium [Moles/volume] in Ser um or PlasmaOrdered By: Sin Mabry on 02-28-2024 Sodium [Moles/Vol] 128 mmol/L Low 136-145 [facility] Comment on above: Performed By: #### C BC, BNP, BMP, PT, PTT, HEPATIC, CK, HS TROP ####[address] [address] [facility] Troponin I High Sensitivityo n 02-28-2024 Troponin I High Sensitivity 4.9 pg/mL Normal 0.0-20.0 [facility] Comment on above: Result Comment: PERF ORMED BY:[address] [place], [place] [phone] MEDICAL DIRECTORBETHANY ALBRIGHT M.D. Performed By: #### C BC, BNP, BMP, PT, PTT, HEPATIC, CK, HS TROP ####[facility] [id number] [place] [id number] [facility] Troponin I.cardiac [Mass/vol ume] in Serum or Plasma by Detection limit <= 0.01 ng/Ordered By: Sin Mabry on 02-28-2024 Troponin I.cardiac DL <= 0.01 ng/mL [Mass/Vol] 4.9 pg/mL 0.0-20.0 [facility] Troponin I.cardiac DL <= 0.01 ng/mL [Mass/Vol] Troponin I.cardiac [Mass/volume] in Serum or Plasma by Detection limit <= 0.01 ng/ 0.0-20.0 [facility] Urea nitrogen [Mass/volume] in Serum or PlasmaOrdered By: Sin Mabry on 02-28-2024 Urea nitrogen [Mass/Vol] 11 mg/dL Normal 7-25 [facility] Comment on above: Performed By: #### C BC, BNP, BMP, PT, PTT, HEPATIC, CK, HS TROP ####[facility] [place] [id number] [facility] WBC Auto (Bld) [#/Vol]Ordere d By: Sin Mabry on 02-28-2024 WBC (Bld) [#/Vol] Leukocytes [#/volume ] in Blood by Automated count 4.1-10.5 [facility] XR chest 1V portableon 02-27 XR chest 1V portable Normal [facility] aPTT in Platelet poor plasma by Coagulation assayOrdered By: Sin Mbary on 02-28-2024 aPTT Coag (PPP) [Time] Activated partial thromboplastin time (aPTT) in platelet poor plasma by coagulation a High 25.1-36.5 [facility] Comment on above: A hematocrit value g reater than 55% may lead to inaccurate results in coagulation testing. Patients having hematocrit values >55% require a special collection tube for coagulation studies. Please contact the laboratory at [phone] for redraw instructions. Automated basophil %Ordered By: Rubin Billy on 02-04-2024 Basophils/100 WBC (Bld) 0.2 % Normal . [facility] Comment on above: Performed By: #### C BC, BMP ####[place] [id number] [place] [address] [facility] Automated basophil countOrde red By: Rubin Billy on 02-04-2024 Basophils (Bld) [#/Vol] 0.0 10*3/uL Normal 0.0-0.2 [facility] Comment on above: Result Comment: PERF ORMED BY:[place] [address] [address] [place]OSSOMMargeNie[place], [place] [phone] MEDICAL DIRECTORBETHANY ALBRIGHT M.D. Performed By: #### C MARYAM, BMP ####[place] [id number] [facility] Automated blood monocyte cou ntOrdered By: Rubin Billy on 02-04-2024 Monocytes (Bld) [#/Vol] 1.0 10*3/uL High 0.0-0.8 [facility] Comment on above: Performed By: #### C MARYAM, BMP ####[address] Automated eosinophil %Ordere d By: Rubin Billy on 02-04-2024 Eosinophils/100 WBC (Bld) 1.2 % Normal . [facility] Comment on above: Performed By: #### C MARYAM, BMP ####[place] [id number] [facility] Automated eosinophil countOr dered By: Rubin Billy on 02-04-2024 Eosinophils (Bld) [#/Vol] 0.1 10*3/uL Normal 0.0-0.45 [facility] Comment on above: Performed By: #### C MARYAM, BMP ####[place] [id number] [facility] Automated monocyte %Ordered By: Rubin Billy on 02-04-2024 Monocytes/100 WBC (Bld) 12.9 % Normal . [facility] Comment on above: Performed By: #### C MARYAM, BMP ####[place] [id number] [facility] Automated neutrophil %Ordere d By: Rubin Billy on 02-04-2024 Neutrophils/100 WBC (Bld) 72.1 % Normal . [facility] Comment on above: Performed By: #### C MARYAM, BMP ####[place] [id number] [place] [address] [facility] Basic Metabolic Panelon 01-14 Creatinine Clr Calc Pharmacy 86.96 Normal [facility] Comment on above: Result Comment: PERF ORMED BY:[address] [place], [place] [phone] MEDICAL DIRECTORBETHANY ALBRIGHT M.D. Performed By: #### C MARYAM, BMP ####[place] [id number] [place] [id number] [facility] GFR/1.73 sq M.predicted MDRD (S/P/Bld) [Vol rate/Area] mL/min/{1.73_m2} Normal [facility] Comment on above: Performed By: #### C MARYAM, BMP ####[place] [id number] [facility] Basophils Auto (Bld) [#/Vol] Ordered By: Rubin Billy on 02-04-2024 Basophils (Bld) [#/Vol] Automated basophil count 0.0-0.2 [facility] Basophils/100 WBC Auto (Bld) Ordered By: Rubin Billy on 02-04-2024 Basophils/100 WBC (Bld) Automated basophil % . [facility] Calcium [Mass/volume] in Ser um or PlasmaOrdered By: Rubin Billy on 02-04-2024 Calcium [Mass/Vol] 8.7 mg/dL Normal 8.6-10.3 [facility] Comment on above: Performed By: #### C MARYAM, BMP ####[place] [id number] [facility] Calcium [Mass/Vol] Calcium [Mass/volume ] in Serum or Plasma 8.6-10.3 [facility] Carbon dioxide, total [Moles /volume] in Serum or PlasmaOrdered By: Rubin Billy on 02-04-2024 CO2 [Moles/Vol] 29.9 mmol/L Normal 21.0-31.0 [facility] Comment on above: Performed By: #### C BC, BMP ####[address] [address] [facility] CO2 [Moles/Vol] Carbon dioxide, tota l [Moles/volume] in Serum or Plasma 21.0-31.0 [facility] Chloride [Moles/volume] in S christine or PlasmaOrdered By: Rubin Billy on 02-04-2024 Chloride [Moles/Vol] 100 mmol/L Normal 98-107 [facility] Comment on above: Performed By: #### C BC, BMP ####[place] [id number] [place] [id number] [facility] Chloride [Moles/Vol] Chloride [Moles/vol ume] in Serum or Plasma 98-107 [facility] Complete Blood Count Auto Di ffon 02-04-2024 Mean Corpuscular HGB Conc 33.7 g/dL Normal 32.5-35.6 [facility] Comment on above: Performed By: #### C BC, BMP ####[address] [address] [facility] NRBC% 0.1 /100{WBC} Normal 0-0.5 [facility] Comment on above: Performed By: #### C BC, BMP ####[place] [id number] [facility] Creatinine [Mass/volume] in Serum or PlasmaOrdered By: Rubin Billy on 02-04-2024 Creatinine [Mass/Vol] 0.88 mg/dL Normal 0.70-1.30 [facility] Comment on above: Performed By: #### C MARYAM, BMP ####[place] [id number] [facility] Creatinine [Mass/Vol] Creatinine [Mass/v olume] in Serum or Plasma 0.70-1.30 [facility] Eosinophils Auto (Bld) [#/Vo l]Ordered By: Rubin Billy on 02-04-2024 Eosinophils (Bld) [#/Vol] Automated eosinophil count 0.0-0.45 [facility] Eosinophils/100 WBC Auto (Bl d)Ordered By: Rubin Billy on 02-04-2024 Eosinophils/100 WBC (Bld) Automated eosinophil % . [facility] Erythrocyte distribution wid th Auto (RBC) [Ratio]Ordered By: Rubin Billy on 02-04-2024 Erythrocyte distribution width (RBC) [Ratio] Erythrocyte distribution width [Ratio] by Automated count 12.0-14.8 [facility] Erythrocyte distribution wid th [Ratio] by Automated countOrdered By: Rubin Billy on 02-04-2024 Erythrocyte distribution width (RBC) [Ratio] 14.1 % Normal 12.0-14.8 [facility] Comment on above: Performed By: #### C BC, BMP ####[place] [id number] [place] [id number] [facility] Erythrocytes [#/volume] in B lood by Automated countOrdered By: Rubin Billy on 02-04-2024 RBC (Bld) [#/Vol] 3.74 10*6/uL Low 3.90-5.60 [facility] Comment on above: Performed By: #### C BC, BMP ####[place] [address] [place] [address] [place] Glucose [Mass/volume] in Ser um or PlasmaOrdered By: Rubin Billy on 02-04-2024 Glucose [Mass/Vol] 83 mg/dL Normal 70-100 [facility] Comment on above: ADA recommended refe rence rangeRandom Glucose Reference Range is dependent on time and content of last meal. Glucose of more than 200 mg/dL in a nonstressed, ambulatory subject supports the diagnosis of Diabetes Mellitus. Result Comment: [place] om Glucose Reference Range is dependent on time and content of last meal. Glucose of more than 200 mg/dL in a nonstressed, ambulatory subject supports the diagnosis of Diabetes Mellitus. ADA recommended reference range Performed By: #### C BC, BMP ####[facility] [place] [address] [facility] Glucose [Mass/Vol] Glucose [Mass/volume ] in Serum or Plasma 70-100 [facility] Comment on above: ADA recommended refe rence rangeRandom Glucose Reference Range is dependent on time and content of last meal. Glucose of more than 200 mg/dL in a nonstressed, ambulatory subject supports the diagnosis of Diabetes Mellitus. Hematocrit Auto (Bld) [Volum e fraction]Ordered By: Rubin Billy on 02-04-2024 Hematocrit (Bld) [Volume fraction] Hematocrit [Volume Fraction] of Blood by Automated count Low 38.8-50.0 [facility] Hematocrit [Volume Fraction] of Blood by Automated countOrdered By: Rubin Billy on 02-04-2024 Hematocrit (Bld) [Volume fraction] 34.0 % Low 38.8-50.0 [facility] Comment on above: Performed By: #### C MARYAM, BMP ####[facility] [id number] Hemoglobin [Mass/volume] in BloodOrdered By: Rubin Billy on 02-04-2024 Hemoglobin (Bld) [Mass/Vol] 11.4 g/dL Low 13.0-17.0 [facility] Comment on above: Performed By: #### C MARYAM, BMP ####[facility] [id number] Hemoglobin (Bld) [Mass/Vol] Hemoglobin [Mass/volume] in Blood Low 13.0-17.0 [facility] Leukocytes [#/volume] correc junior for nucleated erythrocytes in Blood by Automated counOrdered By: Rubin Billy on 02-04-2024 WBC corrected for nucl RBC Auto (Bld) [#/Vol] 7.7 10*3/uL 4.1-10.5 [facility] WBC corrected for nucl RBC Auto (Bld) [#/Vol] Leukocytes [#/volume] corrected for nucleated erythrocytes in Blood by Automated coun 4.1-10.5 [facility] Leukocytes [#/volume] in Blo od by Automated countOrdered By: Rubin Billy on 02-04-2024 WBC (Bld) [#/Vol] 7.7 10*3/uL Normal 4.1-10.5 [facility] Comment on above: Performed By: #### C MARYAM, BMP ####[facility] [id number] Lymphocytes Auto (Bld) [#/Vo l]Ordered By: Rubin Billy on 02-04-2024 Lymphocytes (Bld) [#/Vol] Lymphocytes [#/volume] in Blood by Automated count 1.00-4.8 [facility] Lymphocytes [#/volume] in Bl ood by Automated countOrdered By: Rubin Billy on 02-04-2024 Lymphocytes (Bld) [#/Vol] 1.1 10*3/uL Normal 1.00-4.8 [facility] Comment on above: Performed By: #### C MARYAM, BMP ####[facility] [id number] [place] [address] Lymphocytes/100 WBC Auto (Bl d)Ordered By: Rubin Billy on 02-04-2024 Lymphocytes/100 WBC (Bld) Lymphocytes/100 leukocytes in Blood by Automated count . [facility] Lymphocytes/100 leukocytes i n Blood by Automated countOrdered By: Rubin Billy on 02-04-2024 Lymphocytes/100 WBC (Bld) 13.6 % Normal . [facility] Comment on above: Performed By: #### C MARYAM, BMP ####[facility] [id number] [place] [address] MCH Auto (RBC) [Entitic mass ]Ordered By: Rubin Billy on 02-04-2024 MCH (RBC) [Entitic mass] MCH [Entitic mass] by Automated count 27.5-35.2 [facility] MCH [Entitic mass] by Automa junior countOrdered By: Rubin Billy on 02-04-2024 MCH (RBC) [Entitic mass] 30.6 pg Normal 27.5-35.2 [facility] Comment on above: Performed By: #### C BC, BMP ####[address] MCHC Auto (RBC) [Mass/Vol]Or dered By: Rubin Billy on 02-04-2024 MCHC (RBC) [Mass/Vol] 33.7 g/dL 32.5-35.6 [facility] MCHC (RBC) [Mass/Vol] MCHC [Mass/volume] by Automated count 32.5-35.6 [facility] MCV Auto (RBC) [Entitic vol] Ordered By: Rubin Billy on 02-04-2024 MCV (RBC) [Entitic vol] MCV [Entitic vol ume] by Automated count 83.5-101 [facility] MCV [Entitic volume] by Auto mated countOrdered By: Rubin Billy on 02-04-2024 MCV (RBC) [Entitic vol] 90.8 fL Normal 83.5-101 [facility] Comment on above: Performed By: #### C MARYAM, IVANA ####[facility] [id number] [place] [id number] [facility] Monocytes Auto (Bld) [#/Vol] Ordered By: Rubin Billy on 02-04-2024 Monocytes (Bld) [#/Vol] Automated blood monocyte count High 0.0-0.8 [facility] Monocytes/100 WBC Auto (Bld) Ordered By: Rubin Billy on 02-04-2024 Monocytes/100 WBC (Bld) Automated monocyte % . [facility] Neutrophils Auto (Bld) [#/Vo l]Ordered By: Rubin Billy on 02-04-2024 Neutrophils (Bld) [#/Vol] Neutrophils [#/volume] in Blood by Automated count 1.8-7.7 [facility] Neutrophils [#/volume] in Bl ood by Automated countOrdered By: Rubin Billy on 02-04-2024 Neutrophils (Bld) [#/Vol] 5.6 10*3/uL Normal 1.8-7.7 [facility] Comment on above: Performed By: #### C MARYAM, IVANA ####[facility] [place] [id number] [facility] Neutrophils/100 WBC Auto (Bl d)Ordered By: Rubin Billy on 02-04-2024 Neutrophils/100 WBC (Bld) Automated neutrophil % . [facility] No Panel InformationOrdered By: Rubin Billy on 02-04-2024 Estimated GFR (CKD-EPI) > 60.0 mL/Min [facility] Creatinine Clearance (Chem 86.96 [facility] Nucleated erythrocytes [Pres ence] in Blood by Automated countOrdered By: Rubin Billy on 02-04-2024 Nucleated RBC Auto Ql (Bld) 0.1 /100{WBC} 0-0.5 [facility] Nucleated RBC Auto Ql (Bld) Nucleated erythrocytes [Presence] in Blood by Automated count 0-0.5 [facility] Platelet mean volume Auto (B ld) [Entitic vol]Ordered By: Rubin Billy on 02-04-2024 Platelet mean volume (Bld) [Entitic vol] Platelet mean volume [Entitic volume] in Blood by Automated count 6.6-10.1 [facility] Platelet mean volume [Entiti c volume] in Blood by Automated countOrdered By: Rubin Billy on 02-04-2024 Platelet mean volume (Bld) [Entitic vol] 7.8 fL Normal 6.6-10.1 [facility] Comment on above: Performed By: #### C , BMP ####[place] [id number] Platelets Auto (Bld) [#/Vol] Ordered By: Rubin Billy on 02-04-2024 Platelets (Bld) [#/Vol] Platelets [#/vol ume] in Blood by Automated count 150-450 [facility] Platelets [#/volume] in Bloo d by Automated countOrdered By: Rubin Billy on 02-04-2024 Platelets (Bld) [#/Vol] 246 10*3/uL Normal 150-450 [facility] Comment on above: Performed By: #### C BC, BMP ####[place] [id number] Potassium [Moles/volume] in Serum or PlasmaOrdered By: Rubin Billy on 02-04-2024 Potassium [Moles/Vol] 4.4 mmol/L Normal 3.5-5.1 [facility] Comment on above: Performed By: #### C BC, BMP ####[place] [id number] [place] [id number] [facility] Potassium [Moles/Vol] Potassium [Moles/v olume] in Serum or Plasma 3.5-5.1 [facility] RBC Auto (Bld) [#/Vol]Ordere d By: Rubin Billy on 02-04-2024 RBC (Bld) [#/Vol] Erythrocytes [#/volu me] in Blood by Automated count Low 3.90-5.60 [facility] Serum or plasma anion gap de terminationOrdered By: Rubin Billy on 02-04-2024 Anion gap [Moles/Vol] 7.5 mmol/L Normal 6.0-15.0 [facility] Comment on above: Performed By: #### C MARYAM, BMP ####[place] [id number] [facility] Anion gap [Moles/Vol] Serum or plasma an ion gap determination 6.0-15.0 [facility] Sodium [Moles/volume] in Ser um or PlasmaOrdered By: Rubin Billy on 02-04-2024 Sodium [Moles/Vol] 133 mmol/L Low 136-145 [facility] Comment on above: Performed By: #### C MARYAM, BMP ####[place] [id number] [facility] Sodium [Moles/Vol] Sodium [Moles/volume ] in Serum or Plasma Low 136-145 [facility] Urea nitrogen [Mass/volume] in Serum or PlasmaOrdered By: Rubin Billy on 02-04-2024 Urea nitrogen [Mass/Vol] 22 mg/dL Normal 12-06 [facility] Comment on above: Performed By: #### C BC, BMP ####[place] [id number] [facility] Urea nitrogen [Mass/Vol] Urea nitrogen [Mass/volume] in Serum or Plasma 12-06 [facility] WBC Auto (Bld) [#/Vol]Ordere d By: Rubin Billy on 02-04-2024 WBC (Bld) [#/Vol] Leukocytes [#/volume ] in Blood by Automated count 4.1-10.5 [facility] A1C with Estimated Average G elder 02-03-2024 Glucose [Mass/Vol] 108 mg/dL Normal [facility] Comment on above: Result Comment: PERF ORMED BY:[place] [address] [place] [phone] MEDICAL DIRECTORBETHANY ALBRIGHT M.D. Performed By: #### M G, CBC, PT, HEPATIC, LIPID, PTT, A1C [facility] IVANA Britton ####[place] [address] [place] [address] [facility] Activated partial thrombopla stin time (aPTT) in platelet poor plasma by coagulation aOrdered By: Rubin Billy on 02-03-2024 aPTT Coag (PPP) [Time] 30.2 s 25.1-36.5 [facility] Comment on above: A hematocrit value g reater than 55% may lead to inaccurate results in coagulation testing. Patients having hematocrit values >55% require a special collection tube for coagulation studies. Please contact the laboratory at [phone] for redraw instructions. Alanine aminotransferase [En zymatic activity/volume] in Serum or PlasmaOrdered By: Rubin Billy on 02-03-2024 ALT [Catalytic activity/Vol] 7 U/L Normal [facility] Comment on above: Performed By: #### M G, CBC, PT, HEPATIC, LIPID, PTT, A1C [facility] IVANA Britton ####[place] [id number] [place] [address] [facility] ALT [Catalytic activity/Vol] Alanine aminotransferase [Enzymatic activity/volume] in Serum or Plasma [facility] Albumin [Mass/volume] in Ser um or Plasma by Bromocresol green (BCG) dye binding methoOrdered By: Rubin Billy on 02-03-2024 Albumin BCG dye [Mass/Vol] 3.6 g/dL 3.5-5.7 [facility] Albumin BCG dye [Mass/Vol] Albumin [Mass/volume] in Serum or Plasma by Bromocresol green (BCG) dye binding metho 3.5-5.7 [facility] Alkaline phosphatase [Enzyma tic activity/volume] in Serum or PlasmaOrdered By: Rubin Billy on 02-03-2024 ALP [Catalytic activity/Vol] 62 U/L Normal 34-104 [facility] Comment on above: Performed By: #### M G, CBC, PT, HEPATIC, LIPID, PTT, A1C WT eA, BMP ####[place] [address] [place] [address] [facility] ALP [Catalytic activity/Vol] Alkaline phosphatase [Enzymatic activity/volume] in Serum or Plasma 34-104 [facility] Aspartate aminotransferase [ Enzymatic activity/volume] in Serum or PlasmaOrdered By: Rubin Billy on 02-03-2024 AST [Catalytic activity/Vol] 10 U/L Low 13-39 [facility] Comment on above: Performed By: #### M G, CBC, PT, HEPATIC, LIPID, PTT, A1C WT eA, BMP ####[address] [address] [facility] AST [Catalytic activity/Vol] Aspartate aminotransferase [Enzymatic activity/volume] in Serum or Plasma Low 13-39 [facility] BNP ser/plasOrdered By: Mook Reed on 02-03-2024 Natriuretic peptide B (Bld) [Mass/Vol] 239.0 pg/mL High 5-100 [facility] Comment on above: Result Comment: PERF ORMED BY:[address] [place] [phone] MEDICAL DIRECTORBETHANY ALBRIGHT M.D. Performed By: #### H S TROP, BNP ####[address] [address] [facility] Basic Metabolic Panelon 01-14 Anion gap [Moles/Vol] 9.3 mmol/L Normal 6.0-15.0 [facility] Comment on above: Performed By: #### M G, CBC, PT, HEPATIC, LIPID, PTT, A1C WT Reba, BMP ####[place] [address] [place] [address] [facility] Calcium [Mass/Vol] 9.0 mg/dL Normal 8.6-10.3 [facility] Comment on above: Performed By: #### M G, CBC, PT, HEPATIC, LIPID, PTT, A1C WTH eA, BMP ####[address] Chloride [Moles/Vol] 99 mmol/L Normal 98-107 [facility] Comment on above: Performed By: #### M G, CBC, PT, HEPATIC, LIPID, PTT, A1C WTH eA, BMP ####[address] CO2 [Moles/Vol] 29.2 mmol/L Normal 21.0-31.0 [facility] Comment on above: Performed By: #### M G, CBC, PT, HEPATIC, LIPID, PTT, A1C WTH eA, BMP ####[address] Creatinine [Mass/Vol] 0.98 mg/dL Normal 0.70-1.30 [facility] Comment on above: Performed By: #### M G, CBC, PT, HEPATIC, LIPID, PTT, A1C WTH eA, BMP ####[address] Creatinine Clr Calc Pharmacy 77.28 Normal [facility] Comment on above: Performed By: #### M G, CBC, PT, HEPATIC, LIPID, PTT, A1C WTH eA, BMP ####[address] GFR/1.73 sq M.predicted MDRD (S/P/Bld) [Vol rate/Area] mL/min/{1.73_m2} Normal [facility] Comment on above: Performed By: #### M G, CBC, PT, HEPATIC, LIPID, PTT, A1C WTH eA, BMP ####[address] Glucose [Mass/Vol] 123 mg/dL High 70-100 [facility] Comment on above: Result Comment: [place] Glucose Reference Range is dependent on time and content of last meal. Glucose of more than 200 mg/dL in a nonstressed, ambulatory subject supports the diagnosis of Diabetes Mellitus. ADA recommended reference range Performed By: #### M G, CBC, PT, HEPATIC, LIPID, PTT, A1C WTH eA, BMP ####[address] Potassium [Moles/Vol] 4.5 mmol/L Normal 3.5-5.1 [facility] Comment on above: Performed By: #### M G, CBC, PT, HEPATIC, LIPID, PTT, A1C WTH eA, BMP ####[place] [id number] [facility] Sodium [Moles/Vol] 133 mmol/L Low 136-145 [facility] Comment on above: Performed By: #### M G, CBC, PT, HEPATIC, LIPID, PTT, A1C WTH eA, BMP ####[place] [id number] Urea nitrogen [Mass/Vol] 27 mg/dL High 7-25 [facility] Comment on above: Performed By: #### M G, CBC, PT, HEPATIC, LIPID, PTT, A1C WTH eA, BMP ####[place] [id number] [facility] Bilirubin.direct [Mass/volum e] in Serum or PlasmaOrdered By: Rubin Billy on 02-03-2024 Bilirubin.direct [Mass/Vol] 0.10 mg/dL 0.03-0.18 [facility] Bilirubin.direct [Mass/Vol] Bilirubin.direct [Mass/volume] in Serum or Plasma 0.03-0.18 [facility] Bilirubin.total [Mass/volume ] in Serum or PlasmaOrdered By: Rubin Billy on 02-03-2024 Bilirubin [Mass/Vol] 0.6 mg/dL Normal 0.3-1.0 [facility] Comment on above: Performed By: #### M G, CBC, PT, HEPATIC, LIPID, PTT, A1C WTH eA, BMP ####[place] [id number] [facility] Bilirubin [Mass/Vol] Bilirubin.total [Mass/volume] in Serum or Plasma 0.3-1.0 [facility] Blood estimated average gluc ose determination by estimation from glycated hemoglobinOrdered By: Rubin Billy on 02-03-2024 Average glucose Estimated from glycated hemoglobin (Bld) [Mass/Vol] Glucose mean value [Mass/volume] in Blood Estimated from glycated hemoglobin [facility] Cholesterol [Mass/volume] in Serum or PlasmaOrdered By: Rubin Billy on 02-03-2024 Cholesterol [Mass/Vol] 144 mg/dL Normal 140-200 [facility] Comment on above: Chol less than 200 m g/dl low riskChol 201-239 mg/dl borderline riskChol 240 mg/dl and greater high risk Result Comment: Chol less than 200 mg/dl low risk Chol 201-239 mg/dl borderline risk Chol 240 mg/dl and greater high risk Performed By: #### M G, CBC, PT, HEPATIC, LIPID, PTT, A1C WTH eA, BMP ####[facility] [id number] Cholesterol [Mass/Vol] Cholesterol [Mass /volume] in Serum or Plasma 140-200 [facility] Comment on above: Chol less than 200 m g/dl low riskChol 201-239 mg/dl borderline riskChol 240 mg/dl and greater high risk Cholesterol in HDL [Mass/vol ume] in Serum or PlasmaOrdered By: Rubin Billy on 02-03-2024 Cholesterol in HDL [Mass/Vol] Serum or plasma high density lipoprotein (HDL) cholesterol measurement 23-92 [facility] Comment on above: HDL CHOL ATP-III CLA SSIFICATION Cardiovascular RiskHDL > or equal to 60 mg/dL LOWHDL < 40 mg/dL HIGH Cholesterol in LDL Calc [Mas s/Vol]Ordered By: Rubin Billy on 02-03-2024 Cholesterol in LDL [Mass/Vol] 64 mg/dL 0-100 [facility] Comment on above: LDL ATP III CLASSIFI CATIONLDL less than 100 mg/dL OptimalLDL 100-129 mg/dL Near or above optimalLDL 130-159 mg/dL Borderline highLDL 160-189 mg/dL HighLDL greater than 189 mg/dL Very high Cholesterol in LDL [Mass/Vol] Cholesterol in LDL [Mass/volume] in Serum or Plasma by calculation 0-100 [facility] Comment on above: LDL ATP III CLASSIFI CATIONLDL less than 100 mg/dL OptimalLDL 100-129 mg/dL Near or above optimalLDL 130-159 mg/dL Borderline highLDL 160-189 mg/dL HighLDL greater than 189 mg/dL Very high Cholesterol in VLDL Calc [Ma ss/Vol]Ordered By: Rubin Billy on 02-03-2024 Cholesterol in VLDL [Mass/Vol] 7 mg/dL [facility] Cholesterol in VLDL [Mass/Vol] Cholesterol in VLDL [Mass/volume] in Serum or Plasma by calculation [facility] Complete Blood Count Auto Di ffon 02-03-2024 Basophils (Bld) [#/Vol] 0.0 10*3/uL Normal 0.0-0.2 [facility] Comment on above: Result Comment: PERF ORMED BY:[address] [place], [place] [phone] MEDICAL DIRECTORBETHANY ALBRIGHT M.D. Performed By: #### M G, CBC, PT, HEPATIC, LIPID, PTT, A1C WTH eA, BMP ####[address] [address] [facility] Basophils/100 WBC (Bld) 0.1 % Normal . Maryam rodrigues [facility] Comment on above: Performed By: #### M G, CBC, PT, HEPATIC, LIPID, PTT, A1C WTH eA, BMP ####[address] [address] [facility] Eosinophils (Bld) [#/Vol] 0.0 10*3/uL Normal 0.0-0.45 [facility] Comment on above: Performed By: #### M G, CBC, PT, HEPATIC, LIPID, PTT, A1C WTH eA, BMP ####[address] [address] [facility] Eosinophils/100 WBC (Bld) 0.0 % Normal . [facility] Comment on above: Performed By: #### M G, CBC, PT, HEPATIC, LIPID, PTT, A1C WTH eA, BMP ####[address] [address] [facility] Erythrocyte distribution width (RBC) [Ratio] 13.9 % Normal 12.0-14.8 [facility] Comment on above: Performed By: #### M G, CBC, PT, HEPATIC, LIPID, PTT, A1C WTH eA, BMP ####[address] Hematocrit (Bld) [Volume fraction] 34.1 % Low 38.8-50.0 [facility] Comment on above: Performed By: #### M G, CBC, PT, HEPATIC, LIPID, PTT, A1C WTH eA, BMP ####[address] Hemoglobin (Bld) [Mass/Vol] 11.4 g/dL Low 13.0-17.0 [facility] Comment on above: Performed By: #### M G, CBC, PT, HEPATIC, LIPID, PTT, A1C WTH eA, BMP ####[address] Lymphocytes (Bld) [#/Vol] 0.5 10*3/uL Low 1.00-4.8 [facility] Comment on above: Performed By: #### M G, CBC, PT, HEPATIC, LIPID, PTT, A1C WTH eA, BMP ####[address] Lymphocytes/100 WBC (Bld) 5.3 % Normal . [facility] Comment on above: Performed By: #### M G, CBC, PT, HEPATIC, LIPID, PTT, A1C WTH eA, BMP ####[address] MCH (RBC) [Entitic mass] 30.6 pg Normal 27.5-35.2 [facility] Comment on above: Performed By: #### M G, CBC, PT, HEPATIC, LIPID, PTT, A1C WTH eA, BMP ####[address] MCV (RBC) [Entitic vol] 92.1 fL Normal 83.5-101 [facility] Comment on above: Performed By: #### M G, CBC, PT, HEPATIC, LIPID, PTT, A1C WTH eA, BMP ####[address] Mean Corpuscular HGB Conc 33.3 g/dL Normal 32.5-35.6 [facility] Comment on above: Performed By: #### M G, CBC, PT, HEPATIC, LIPID, PTT, A1C WTH eA, BMP ####[address] Monocytes (Bld) [#/Vol] 0.9 10*3/uL High 0.0-0.8 [facility] Comment on above: Performed By: #### M G, CBC, PT, HEPATIC, LIPID, PTT, A1C WTH eA, BMP ####[address] Monocytes/100 WBC (Bld) 9.4 % Normal . T lilia [facility] Comment on above: Performed By: #### M G, CBC, PT, HEPATIC, LIPID, PTT, A1C WTH eA, BMP ####[address] Neutrophils (Bld) [#/Vol] 8.6 10*3/uL High 1.8-7.7 [facility] Comment on above: Performed By: #### M G, CBC, PT, HEPATIC, LIPID, PTT, A1C WTH eA, BMP ####[address] Neutrophils/100 WBC (Bld) 85.2 % Normal . [facility] Comment on above: Performed By: #### M G, CBC, PT, HEPATIC, LIPID, PTT, A1C WTH eA, BMP ####[address] NRBC% 0.0 /100{WBC} Normal 0-0.5 [facility] Comment on above: Performed By: #### M G, CBC, PT, HEPATIC, LIPID, PTT, A1C WTH eA, BMP ####[address] Platelet mean volume (Bld) [Entitic vol] 7.9 fL Normal 6.6-10.1 [facility] Comment on above: Performed By: #### M G, CBC, PT, HEPATIC, LIPID, PTT, A1C WTH eA, BMP ####[facility] Platelets (Bld) [#/Vol] 259 10*3/uL Normal 150-450 [facility] Comment on above: Performed By: #### M G, CBC, PT, HEPATIC, LIPID, PTT, A1C WTH eA, BMP ####[place] [id number] RBC (Bld) [#/Vol] 3.71 10*6/uL Low 3.90-5.60 [facility] Comment on above: Performed By: #### M G, CBC, PT, HEPATIC, LIPID, PTT, A1C WTH Reba, BMP ####[place] [id number] WBC (Bld) [#/Vol] 10.1 10*3/uL Normal 4.1-10.5 [facility] Comment on above: Performed By: #### M G, CBC, PT, HEPATIC, LIPID, PTT, A1C WTH Reba, BMP ####[place] [id number] ECG 12 lead ECGon 02-03-2024 ECG 12 lead ECG Normal [facility] ECH echo transthoracicon ECH echo transthoracic Normal Th e [facility] Globulin Calc (S) [Mass/Vol] Ordered By: Rubin Billy on 02-03-2024 Globulin (S) [Mass/Vol] Serum globulin m easurement by calculation (mass/volume) [facility] Glucose mean value [Mass/vol ume] in Blood Estimated from glycated hemoglobinOrdered By: Rubin Billy on 02-03-2024 Average glucose Estimated from glycated hemoglobin (Bld) [Mass/Vol] 108 mg/dL [facility] Hemoglobin A1c percentageOrd ered By: Rubin Billy on 02-03-2024 HbA1c (Bld) [Mass fraction] 5.4 % Normal 4.3-5.6 [facility] Comment on above: Increased risk for d iabetes: 5.7 - 6.4diabetes: >6.4glycemic control for adults with diabetes: <7.0 Result Comment: Incr eased risk for diabetes: 5.7 - 6.4 diabetes: >6.4 glycemic control for adults with diabetes: <7.0 Performed By: #### M G, CBC, PT, HEPATIC, LIPID, PTT, [facility], [facility] ####[place] [id number] [place] [id number] [facility] Hemoglobin A1c/Hemoglobin.to jeanne in BloodOrdered By: Rubin Billy on 02-03-2024 HbA1c (Bld) [Mass fraction] Hemoglobin A1c percentage 4.3-5.6 [facility] Comment on above: Increased risk for d iabetes: 5.7 - 6.4diabetes: >6.4glycemic control for adults with diabetes: <7.0 Hepatic Panelon 02-03-2024 Albumin [Mass/Vol] 3.6 g/dL Normal 3.5-5.7 [facility] Comment on above: Performed By: #### M G, CBC, PT, HEPATIC, LIPID, PTT, A1C WT Reba, BMP ####[place] [id number] [place] [id number] [facility] Bilirubin,Indirect 0.5 mg/dL Normal [facility] Comment on above: Performed By: #### M G, CBC, PT, HEPATIC, LIPID, PTT, A1C WT Reba, BMP ####[place] [id number] [place] [id number] [facility] Bilirubin.indirect [Mass/Vol] 0.10 mg/dL Normal 0.03-0.18 [facility] Comment on above: Performed By: #### M G, CBC, PT, HEPATIC, LIPID, PTT, A1C WT Reba, BMP ####[place] [id number] [place] [id number] [facility] INR in Platelet poor plasma by Coagulation assayOrdered By: Rubin Billy on 02-03-2024 INR Coag (PPP) [Relative time] 1.0 {INR} Normal [facility] Comment on above: INR Therapeutic Rang [...] valves: 3 - 4.5 Performed By: #### M G, CBC, PT, HEPATIC, LIPID, PTT, A[facility]C [facility], [facility] ####[facility] Hot[address] INR Coag (PPP) [Relative time] INR in Platelet poor plasma by Coagulation assay [facility] Comment on above: INR Therapeutic Rang [...] with mechanical heart valves: 3 - 4.5 Lipid Panelon 02-03-2024 LDL Cholesterol,Calculated 64 mg/dL Normal 0-100 [facility] Comment on above: Result Comment: LDL ATP III CLASSIFICATION LDL less than 100 mg/dL Optimal LDL 100-129 mg/dL Near or above optimal LDL 130-159 mg/dL Borderline high LDL 160-189 mg/dL High LDL greater than 189 mg/dL Very high Performed By: #### M G, CBC, PT, HEPATIC, LIPID, PTT, A1C WT eA, BMP ####[facility] [id number] [place] [id number] [facility] Triglyceride w/Reflex 37 mg/dL Normal 0-149 [facility] Comment on above: Result Comment: TRIG ATP III CLASSIFICATION TRIG less than 150 mg/dL Normal TRIG 150-199 mg/dL Borderline high TRIG 200-500 mg/dL High TRIG greater than 500 mg/dL Very high Standard traceable to the Center for Disease Conrtrol and Prevention (CDC) test method. Performed By: #### M G, CBC, PT, HEPATIC, LIPID, PTT, A1C WT eA, IVANA ####[facility] [place] [address] [facility] VLDL CHOLESTEROL 7 mg/dL Normal [facility] Comment on above: Performed By: #### M G, CBC, PT, HEPATIC, LIPID, PTT, A1C [facility] eA, BMP ####[place] [address] [place] [address] [facility] Magnesium [Mass/volume] in S christine or PlasmaOrdered By: Rubin Billy on 02-03-2024 Magnesium [Mass/Vol] 1.9 mg/dL Normal 1.9-2.7 [facility] Comment on above: Performed By: #### M G, CBC, PT, HEPATIC, LIPID, PTT, A1C [facility], [facility] ####[place] [address] [place] [address] [facility] Magnesium [Mass/Vol] Magnesium [Mass/vol ume] in Serum or Plasma 1.9-2.7 [facility] Natriuretic peptide B [Mass/ Vol]Ordered By: Silvano Reed on 02-03-2024 Natriuretic peptide B (Bld) [Mass/Vol] BNP ser/plas High 5-100 [facility] Partial Thromboplastin Timeo n 02-03-2024 aPTT Coag (Bld) [Time] 30.2 s Normal 25.1-36.5 Th e [facility] Comment on above: Result Comment: A he matocrit value greater than 55% may lead to inaccurate results in coagulation testing. Patients having hematocrit values >55% require a special collection tube for coagulation studies. Please contact the laboratory at [phone] for redraw instructions.PERFORMED BY:[address] [place], [place] [phone] MEDICAL DIRECTORBETHANY ALBRIGHT M.D. Performed By: #### M G, CBC, PT, HEPATIC, LIPID, PTT, A1C WT eA, BMP ####[facility] [place] [address] [facility] Protein [Mass/volume] in Ser um or PlasmaOrdered By: Rubin Billy on 02-03-2024 Protein [Mass/Vol] 6.2 g/dL Low 6.4-8.9 [facility] Comment on above: Performed By: #### M G, CBC, PT, HEPATIC, LIPID, PTT, A1C WT eA, BMP ####[facility] [place] [address] [facility] Protein [Mass/Vol] Protein [Mass/volume ] in Serum or Plasma Low 6.4-8.9 [facility] Prothrombin time (PT)Ordered By: Rubin Billy on 02-03-2024 PT Coag (PPP) [Time] 11.7 s Normal 9.0-12.9 [facility] Comment on above: A hematocrit value g reater than 55% may lead to inaccurate results in coagulation testing. Patients having hematocrit values >55% require a special collection tube for coagulation studies. Please contact the laboratory at [phone] for redraw instructions. Result Comment: A he matocrit value greater than 55% may lead to inaccurate results in coagulation testing. Patients having hematocrit values >55% require a special collection tube for coagulation studies. Please contact the laboratory at [phone] for redraw instructions. Performed By: #### M G, CBC, PT, HEPATIC, LIPID, PTT, A1C [facility] eA, BMP ####[facility] [id number] [place] [address] [facility] PT Coag (PPP) [Time] Prothrombin time (PT) 9.0- 12.9 [facility] Comment on above: A hematocrit value g reater than 55% may lead to inaccurate results in coagulation testing. Patients having hematocrit values >55% require a special collection tube for coagulation studies. Please contact the laboratory at [phone] for redraw instructions. Serum globulin measurement b y calculation (mass/volume)Ordered By: Rubin Billy on 02-03-2024 Globulin (S) [Mass/Vol] 2.6 g/dL Normal F [facility] Comment on above: Performed By: #### M G, CBC, PT, HEPATIC, LIPID, PTT, A1C [facility], BMP ####[place] [id number] Serum or plasma albumin/glob ulin mass ratioOrdered By: Rubin Billy on 02-03-2024 Albumin/Globulin [Mass ratio] 1.4 {ratio} Normal [facility] Comment on above: Performed By: #### M G, CBC, PT, HEPATIC, LIPID, PTT, A1C [facility] eA, BMP ####[place] [id number] [place] [id number] [facility] Albumin/Globulin [Mass ratio] Serum or plasma albumin/globulin mass ratio [facility] Serum or plasma high density lipoprotein (HDL) cholesterol measurementOrdered By: Rubin Billy on 02-03-2024 Cholesterol in HDL [Mass/Vol] 73 mg/dL Normal 23-92 [facility] Comment on above: HDL CHOL ATP-III CLA SSIFICATION Cardiovascular RiskHDL > or equal to 60 mg/dL LOWHDL < 40 mg/dL HIGH Result Comment: HDL CHOL ATP-III CLASSIFICATION Cardiovascular Risk HDL > or equal to 60 mg/dL LOW HDL < 40 mg/dL HIGH Performed By: #### M G, CBC, PT, HEPATIC, LIPID, PTT, A1C [facility], BMP ####[place] [id number] Serum or plasma non-glucuron idated bilirubin measurement (mass/volume)Ordered By: Rubin Billy on 02-03-2024 Bilirubin.indirect [Mass/Vol] 0.5 mg/dL [facility] Bilirubin.indirect [Mass/Vol] Serum or plasma non-glucuronidated bilirubin measurement (mass/volume) [facility] Serum or plasma total choles terol/high density lipoprotein (HDL) cholesterol mass ratOrdered By: Rubin Billy on 02-03-2024 Cholesterol.total/Madison sterol in HDL [Mass ratio] 2.0 {ratio} Normal <5.0 [facility] Comment on above: Result Comment: PERF ORMED BY:[address] [place], [place] [id number] MEDICAL DIRECTORBETHANY ALBRIGHT M.D. Performed By: #### M G, CBC, PT, HEPATIC, LIPID, PTT, A1C WT eA, BMP ####[facility] [address] [place] [address] [facility] Cholesterol.total/Madison sterol in HDL [Mass ratio] Serum or plasma total cholesterol/high density lipoprotein (HDL) cholesterol mass rat <5.0 [facility] Triglyceride [Mass/volume] i n Serum or PlasmaOrdered By: Rubin Billy on 02-03-2024 Triglyceride [Mass/Vol] 37 mg/dL 0-149 [facility] Comment on above: TRIG ATP III CLASSIF ICATIONTRIG less than 150 mg/dL NormalTRIG 150-199 mg/dL Borderline highTRIG 200-500 mg/dL High TRIG greater than 500 mg/dL Very highStandard traceable to the Center for Disease Conrtrol and Prevention (CDC) test method. Triglyceride [Mass/Vol] Triglyceride [Ma ss/volume] in Serum or Plasma 0-149 [facility] Comment on above: TRIG ATP III CLASSIF ICATIONTRIG less than 150 mg/dL NormalTRIG 150-199 mg/dL Borderline highTRIG 200-500 mg/dL High TRIG greater than 500 mg/dL Very highStandard traceable to the Center for Disease Conrtrol and Prevention (CDC) test method. Troponin I High Sensitivityo n 02-03-2024 Troponin I High Sensitivity 5.3 pg/mL Normal 0.0-20.0 [facility] Comment on above: Result Comment: PERF ORMED BY:[place] [address] [place], [place] [id number] MEDICAL DIRECTORBETHANY ALBRIGHT M.D. Performed By: #### H S TROP, BNP ####[facility] [id number] [place] [address] [facility] Troponin I.cardiac [Mass/vol ume] in Serum or Plasma by Detection limit <= 0.01 ng/Ordered By: Silvano Reed on 02-03-2024 Troponin I.cardiac DL <= 0.01 ng/mL [Mass/Vol] 5.3 pg/mL 0.0-20.0 [facility] Troponin I.cardiac DL <= 0.01 ng/mL [Mass/Vol] Troponin I.cardiac [Mass/volume] in Serum or Plasma by Detection limit <= 0.01 ng/ 0.0-20.0 [facility] aPTT in Platelet poor plasma by Coagulation assayOrdered By: Rubin Billy on 02-03-2024 aPTT Coag (PPP) [Time] Activated partial thromboplastin time (aPTT) in platelet poor plasma by coagulation a 25.1-36.5 [facility] Comment on above: A hematocrit value g reater than 55% may lead to inaccurate results in coagulation testing. Patients having hematocrit values >55% require a special collection tube for coagulation studies. Please contact the laboratory at [phone] for redraw instructions. ECG 12 lead ECGon 02-02-2024 ECG 12 lead ECG Normal [facility] Basophils/100 WBC Manual cnt (Bld)on 02-01-2024 Basophils/100 WBC (Bld) 1.0 % 0.2-2.0 [facility] Basophils/100 WBC (Bld) Basophils/100 le ukocytes in Blood by Manual count 0.2-2.0 [facility] Eosinophils/100 WBC Manual c nt (Bld)on 02-01-2024 Eosinophils/100 WBC (Bld) 0.0 % Low 0.9-7.0 [facility] Eosinophils/100 WBC (Bld) Eosinophils/100 leukocytes in Blood by Manual count Low 0.9-7.0 [facility] Erythrocyte distribution wid th Auto (RBC) [Ratio]on 02-01-2024 Erythrocyte distribution width (RBC) [Ratio] 13.6 % 11.0-15.0 [facility] Erythrocyte distribution width (RBC) [Ratio] Erythrocyte distribution width [Ratio] by Automated count 11.0-15.0 [facility] Estimated glomerular filtrat ion rate (GFR) non- Americanon 02-01-2024 GFR/1.73 sq M.predicted among non-blacks MDRD (S/P/Bld) [Vol rate/Area] mL/min/{1.73_m2} >=60 [facility] GFR/1.73 sq M.predicted among non-blacks MDRD (S/P/Bld) [Vol rate/Area] Estimated glomerular filtration rate (GFR) non- >=60 [facility] Hematocrit Auto (Bld) [Volum e fraction]on 02-01-2024 Hematocrit (Bld) [Volume fraction] 36.0 % Low 42.0-54.0 [facility] Hematocrit (Bld) [Volume fraction] Hematocrit [Volume Fraction] of Blood by Automated count Low 42.0-54.0 [facility] Hemoglobin [Mass/volume] in Bloodon 02-01-2024 Hemoglobin (Bld) [Mass/Vol] 12.1 g/dL Low 14.0-18.0 [facility] Hemoglobin (Bld) [Mass/Vol] Hemoglobin [Mass/volume] in Blood Low 14.0-18.0 [facility] Laboratory - Chemistry and C hemistry - challengeon 02-01-2024 Calcium [Mass/Vol] 9.0 mg/dL 8.5-10.1 [facility] Chloride [Moles/Vol] 96 mmol/L Low 98-107 [facility] CO2 [Moles/Vol] 28.2 mmol/L 21.0-32.0 [facility] Creatinine [Mass/Vol] 0.77 mg/dL 0.70-1.30 [facility] GFR/1.73 sq M.predicted MDRD (S/P/Bld) [Vol rate/Area] mL/min/{1.73_m2} >=60 [facility] Glucose [Mass/Vol] 121 mg/dL High 74-106 [facility] Magnesium [Mass/Vol] 1.8 mg/dL 1.8-2.4 [facility] Natriuretic peptide B (Bld) [Mass/Vol] 2166.0 pg/mL Critically high <=900.0 [facility] Comment on above: RESULTS CALLED TO PERCY LEYVA RN at 210 Potassium [Moles/Vol] 4.2 mmol/L 3.5-5.1 [facility] Sodium [Moles/Vol] 130 mmol/L Low 136-145 [facility] Urea nitrogen [Mass/Vol] 15.0 mg/dL 7.0-18.0 [facility] Urea nitrogen/Creatinine [Mass ratio] 19.5 mg/mg [facility] Laboratory - Hematology and Cell countson 02-01-2024 Lymphocytes/100 WBC (Bld) 12.0 % Low 20.5-60.0 [facility] Monocytes/100 WBC (Bld) 5.0 % 1.7-12.0 [facility] Leukocytes [#/volume] correc junior for nucleated erythrocytes in Blood by Automated counon 02-01-2024 WBC corrected for nucl RBC Auto (Bld) [#/Vol] 8.6 10 3/uL 4.0-11.0 [facility] WBC corrected for nucl RBC Auto (Bld) [#/Vol] Leukocytes [#/volume] corrected for nucleated erythrocytes in Blood by Automated coun 4.0-11.0 [facility] MCH Auto (RBC) [Entitic mass ]on 02-01-2024 MCH (RBC) [Entitic mass] 30.3 pg 25.9-34.0 [facility] MCH (RBC) [Entitic mass] MCH [Entitic mass] by Automated count 25.9-34.0 [facility] MCHC Auto (RBC) [Mass/Vol]on 02-01-2024 MCHC (RBC) [Mass/Vol] 33.6 g/dL 29.9-35.2 Fir [facility] MCHC (RBC) [Mass/Vol] MCHC [Mass/volume] by Automated count 29.9-35.2 [facility] MCV Auto (RBC) [Entitic vol] on 02-01-2024 MCV (RBC) [Entitic vol] 90.2 fL 80.0-94.0 F [facility] MCV (RBC) [Entitic vol] MCV [Entitic vol ume] by Automated count 80.0-94.0 [facility] No Panel Informationon 01-31 Absolute Basophils (Manual) 0.08 10 3/uL 0.00-0.10 [facility] Eosinophils # (Manual) 0.00 10 3/uL 0.00-0.70 [facility] Lymphocytes # (Manual) 1.03 10 3/uL Low 1.20-3.80 [facility] Monocytes # (Manual) 0.43 10 3/uL 0.30-0.80 [facility] Segmented Neutrophils # (Manual) 7.05 10 3/uL High 1.4-6.5 [facility] Troponin I High Sensitivity 7.0 pg/mL 4.0-76.1 [facility] Comment on above: CUT-OFF POINTS HAVE [...] volume (Bld) [Entitic vol] 9.9 fL 9.5-13.5 [facility] Platelet mean volume (Bld) [Entitic vol] Platelet mean volume [Entitic volume] in Blood by Automated count 9.5-13.5 [facility] Platelets Auto (Bld) [#/Vol] on 02-01-2024 Platelets (Bld) [#/Vol] 249 10 3/uL 150-450 [facility] Platelets (Bld) [#/Vol] Platelets [#/vol ume] in Blood by Automated count 150-450 [facility] RBC Auto (Bld) [#/Vol]on RBC (Bld) [#/Vol] 3.99 10 6/uL Low 4.70-6.10 [facility] RBC (Bld) [#/Vol] Erythrocytes [#/volu me] in Blood by Automated count Low 4.70-6.10 [facility] Segmented neutrophils/100 WB C Manual cnt (Bld)on 02-01-2024 Segmented neutrophils/100 WBC (Bld) 82.0 % High 43.0-75.0 [facility] Segmented neutrophils/100 WBC (Bld) Manual blood segmented neutrophils/100 leukocytes High 43.0-75.0 [facility] Serum or plasma anion gap de terminationon 02-01-2024 Anion gap [Moles/Vol] 10.0 mmol/L [facility] Anion gap [Moles/Vol] Serum or plasma an ion gap determination [facility] Ambulatory Visit Summaryon 0 08-14-2023 Ambulatory [...] Clinton NORMAN MD Where: [facility] Patient Educationon 08-14-19 24 Patient [...] Follow these instructions at home: ? Take cgut-tko-fxjaqla and prescription medicines only as told by [...] [facility] [address], [place] [address] [id number] Additional Instructions: 6 mos w/ PSA Patient [...] virus v (more content not included)... Normal [facility] Comment on above: Result Comment: Elec tronically Signed By: Clinton NORMAN MD\.br\Date and Time Signed: 08/14/23 16:12 EDT\.br\Electronically Co-Signed By: Rhonda Temple\.br\Date and Time Co-Signed: 08/14/23 16:10 EDT OSMOLALITYon 09-06-2022 Osmolality [Osmolality] 275 mosm/kg Critically low 280-301 [facility] Comment on above: Performed By: #### U YADIRA, BMP, TSH #### [facility] [address] [address] [address] Fabrizio Pascual OSMOLALITY URINEon 3 Osmolality, Urine 422 mOsmol/kg Normal [facility] Comment on above: Result Comment: 24 h r : 300 - 900 Random: 50 - 1400 After 12hr fluid restriction: >850 Performed By: #### U YADIRA, BMP, TSH #### [facility] [address] [address] [address] Fabrizio Pascual CBC W MANUAL DIFFon 09-03-19 23 ATYPICAL LYMPH # Normal [facility] Comment on above: Performed By: #### B AUTOMOTIVE SERVICE PROFESSIONAL, BMP, HSTROPN #### [facility] [address] [address] [address] Fabrizio Pascual ATYPICAL LYMPH % Normal [facility] Comment on above: Performed By: #### B AUTOMOTIVE SERVICE PROFESSIONAL, BMP, HSTROPN #### [facility] [address] [place] [address] Dr. Fabrizio Pascual BAND # 0.1 103/ul Normal 0.0-0.3 [facility] Comment on above: Performed By: #### B AUTOMOTIVE SERVICE PROFESSIONAL, BMP, HSTROPN #### [facility] [address] [place] [address] Dr. Fabrizio Pascual BAND % 1 % Normal 0-5 [facility] Comment on above: Performed By: #### B AUTOMOTIVE SERVICE PROFESSIONAL, BMP, HSTROPN #### [facility] [address] [place] [address] Dr. Fabrizio Pascual BASOM # 0.00 103/ul Normal 0.00-0.10 [facility] Comment on above: Performed By: #### B AUTOMOTIVE SERVICE PROFESSIONAL, BMP, HSTROPN #### [facility] [address] [place] [address] Dr. Fabrizio Pascual BASOM % 0.0 % Critically low 0.2-2.0 [facility] Comment on above: Performed By: #### B AUTOMOTIVE SERVICE PROFESSIONAL, BMP, HSTROPN #### [facility] [address] [place] [address] Dr. Fabrizio Pascual BLAST # Normal [facility] Comment on above: Performed By: #### B AUTOMOTIVE SERVICE PROFESSIONAL, BMP, HSTROPN #### [facility] [address] [place] [address] Dr. Fabrizio Pascual BLAST % Normal [facility] Comment on above: Performed By: #### B AUTOMOTIVE SERVICE PROFESSIONAL, BMP, HSTROPN #### [facility] [address] [place] [address] Dr. Fabrizio Pascual CORRECTED WBC Normal 4.0-11.0 [facility] Comment on above: Performed By: #### B AUTOMOTIVE SERVICE PROFESSIONAL, BMP, HSTROPN #### [facility] [address] [place] [address] Dr. Fabrizio Pascual EOS # 0.07 103/ul Normal 0.00-0.70 [facility] Comment on above: Performed By: #### B AUTOMOTIVE SERVICE PROFESSIONAL, BMP, HSTROPN #### [facility] [address] [place] [address] Dr. Fabrizio Pascual EOS% 1.0 % Normal 0.9-7.0 [facility] Comment on above: Performed By: #### B AUTOMOTIVE SERVICE PROFESSIONAL, BMP, HSTROPN #### [facility] [address] [place] [address] Dr. Fabrizio Pascual HCT 38.8 % Critically low 42.0-54.0 [facility] Comment on above: Performed By: #### B AUTOMOTIVE SERVICE PROFESSIONAL, BMP, HSTROPN #### [facility] [address] [place] [address] Dr. Fabrizio Pascual HGB 12.5 g/dl Critically low 14.0-18.0 [facility] Comment on above: Performed By: #### B AUTOMOTIVE SERVICE PROFESSIONAL, BMP, HSTROPN #### [facility] [address] [place] [address] Dr. Fabrizio Pascual LYMPHM # 0.68 103/ul Critically low 1.20-3.80 [facility] Comment on above: Performed By: #### B AUTOMOTIVE SERVICE PROFESSIONAL, BMP, HSTROPN #### [facility] [address] [place] [address] Dr. Fabrizio Pascual LYMPHM% 9.0 % Critically low 20.5-60.0 [facility] Comment on above: Performed By: #### B AUTOMOTIVE SERVICE PROFESSIONAL, BMP, HSTROPN #### [facility] [address] [place] [address] Dr. Fabrizio Pascual MCH 28.1 pg Normal 25.9-34.0 [facility] Comment on above: Performed By: #### B AUTOMOTIVE SERVICE PROFESSIONAL, BMP, HSTROPN #### [facility] [address] [place] [address] Dr. Fabrizio Pascual MCHC 32.2 g/dl Normal 29.9-35.2 [facility] Comment on above: Performed By: #### B AUTOMOTIVE SERVICE PROFESSIONAL, BMP, HSTROPN #### [facility] [address] [place] [address] Dr. Fabrizio Pascual MCV 87.2 fL Normal 80.0-94.0 [facility] Comment on above: Performed By: #### B AUTOMOTIVE SERVICE PROFESSIONAL, BMP, HSTROPN #### [facility] [address] [address] [address] Fabrizio Pascual METAMYELOCYTE # Normal [facility] Comment on above: Performed By: #### B AUTOMOTIVE SERVICE PROFESSIONAL, BMP, HSTROPN #### [facility] [address] [address] [address] Fabrizio Pascual METAMYELOCYTE % Normal [facility] Comment on above: Performed By: #### B AUTOMOTIVE SERVICE PROFESSIONAL, BMP, HSTROPN #### [facility] [address] [address] [address] Fabrizio Pascual MONOM# 0.82 103/ul Critically high 0.30-0.80 [facility] Comment on above: Performed By: #### B AUTOMOTIVE SERVICE PROFESSIONAL, BMP, HSTROPN #### [facility] [address] [place] [address] Dr. Fabrizio Pascual MONOM% 11.0 % Normal 1.7-12.0 [facility] Comment on above: Performed By: #### B AUTOMOTIVE SERVICE PROFESSIONAL, BMP, HSTROPN #### [facility] [address] [place] [address] Dr. Fabrizio Pascual MPV 9.2 fL Critically low 9.5-13.5 [facility] Comment on above: Performed By: #### B AUTOMOTIVE SERVICE PROFESSIONAL, BMP, HSTROPN #### [facility] [address] [place] [address] Dr. Fabrizio Pascual MYELOCYTE # Normal [facility] Comment on above: Performed By: #### B AUTOMOTIVE SERVICE PROFESSIONAL, BMP, HSTROPN #### [facility] [address] [place] [address] Dr. Fabrizio Pascual MYELOCYTE % Normal [facility] Comment on above: Performed By: #### B AUTOMOTIVE SERVICE PROFESSIONAL, BMP, HSTROPN #### [facility] [address] [place] [address] Dr. Fabrizio Pascual NRBC Normal [facility] Comment on above: Performed By: #### B AUTOMOTIVE SERVICE PROFESSIONAL, BMP, HSTROPN #### [facility] [address] [place] [address] Dr. Fabrizio Pascual PLT 272 103/ul Normal 150-450 [facility] Comment on above: Performed By: #### B AUTOMOTIVE SERVICE PROFESSIONAL, BMP, HSTROPN #### [facility] [address] [address] [address] Fabrizio Pascual RBC 4.45 106/ul Critically low 4.70-6.10 [facility] Comment on above: Performed By: #### B AUTOMOTIVE SERVICE PROFESSIONAL, BMP, HSTROPN #### [facility] [address] [place] [address] Dr. Fabrizio Pascual RDW 13.7 % Normal 11.0-15.0 [facility] Comment on above: Performed By: #### B AUTOMOTIVE SERVICE PROFESSIONAL, BMP, HSTROPN #### [facility] [address] [place] [address] Dr. Fabrizio Pascual SEG # 5.85 103/ul Normal 1.40-6.50 [facility] Comment on above: Performed By: #### B AUTOMOTIVE SERVICE PROFESSIONAL, BMP, HSTROPN #### [facility] [address] [place] [address] Dr. Fabrizio Pascual SEG % 78.0 % Critically high 43.0-75.0 [facility] Comment on above: Performed By: #### B AUTOMOTIVE SERVICE PROFESSIONAL, BMP, HSTROPN #### [facility] [address] [place] [address] Dr. Fabrizio Pascual WBC 7.5 103/ul Normal 4.0-11.0 [facility] Comment on above: Performed By: #### B AUTOMOTIVE SERVICE PROFESSIONAL, BMP, HSTROPN #### [facility] [address] [place] [address] Dr. Fabrizio Pascual PROF CHEM 8 (BAS METB)on Anion gap [Moles/Vol] 10.1 mmol/L Normal [facility] Comment on above: Performed By: #### U YADIRA, BMP, TSH #### [facility] [address] [place] [address] Dr. Fabrizio Pascual Calcium [Mass/Vol] 9.0 mg/dL Normal 8.5-10.1 [facility] Comment on above: Performed By: #### U YADIRA, BMP, TSH #### [facility] [address] [address] [address] Fabrizio Pascual Chloride [Moles/Vol] 99 mmol/L Normal 98-107 [facility] Comment on above: Performed By: #### U YADIRA, BMP, TSH #### [facility] [address] [address] [address] Fabrizio Pascual CO2 [Moles/Vol] 28.9 mmol/L Normal 21.0-32.0 [facility] Comment on above: Performed By: #### U YADIRA, BMP, TSH #### [facility] [address] [address] [address] Fabrizio Pascual Creatinine [Mass/Vol] 1.00 mg/dL Normal 0.70-1.30 [facility] Comment on above: Performed By: #### U YADIRA, BMP, TSH #### [facility] [address] [address] [address] Fabrizio Pascual EGFR-AF PORTUGUESE >60 Normal >=60 [facility] Comment on above: Performed By: #### U YADIRA, BMP, TSH #### [facility] [address] [address] [address] Fabrizio Pascual EGFR-NON AF PORTUGUESE >60 Normal >=60 [facility] Comment on above: Performed By: #### U YADIRA, BMP, TSH #### [facility] [address] [address] [address] Fabrizio Pascual Glucose [Mass/Vol] 111 mg/dL Critically high 74-106 [facility] Comment on above: Performed By: #### U YADIRA, BMP, TSH #### [facility] [address] [address] [address] Fabrizio Pascual Potassium [Moles/Vol] 4.0 mmol/L Normal 3.5-5.1 [facility] Comment on above: Performed By: #### U YADIRA, BMP, TSH #### [facility] [address] [address] [address] Fabrizio Pascual Sodium [Moles/Vol] 134 mmol/L Critically low 136-145 [facility] Comment on above: Performed By: #### U YADIRA, BMP, TSH #### [facility] [address] [place] [address] Dr. Fabrizio Pascual Urea nitrogen [Mass/Vol] 16.0 mg/dL Normal 7.0-18.0 [facility] Comment on above: Performed By: #### U YADIRA, BMP, TSH #### [facility] [address] [place] [address] Dr. Fabrizio Pascual Urea nitrogen/Creatinine [Mass ratio] 16.0 mg/mg Normal [facility] Comment on above: Performed By: #### U YADIRA, BMP, TSH #### [facility] [address] [place] [address] Dr. Fabrizio Pascual SODIUM RANDOM URINEon 2022 Sodium (U) [Moles/Vol] 78 mmol/L Normal 30-90 [facility] Comment on above: Performed By: #### N AU #### [facility] [address] [place] [address] Dr. Fabrizio Pascual US TAHIR DOP LEG [...] GREGG QUIROS Date: 2022-05-16 15:34 Normal [facility] BNPon 04-19-2022 Natriuretic peptide B (Bld) [Mass/Vol] 719.0 pg/mL Normal <=900.0 [facility] Comment on above: Performed By: #### B AUTOMOTIVE SERVICE PROFESSIONAL, BMP, HSTROPN #### [facility] [address] [place] [address] Dr. Fabrizio Pascual CBC AUTO DIFFon 04-19-2022 BASO # 0.0 103/ul Normal 0.0-0.1 [facility] Comment on above: Performed By: #### C BC #### [facility] [address] [place] [address] Dr. Fabrizio Pascual Basophils/100 WBC (Bld) 0.2 % Normal 0.2-2.0 [facility] Comment on above: Performed By: #### C BC #### [facility] [address] [place] [address] Dr. Fabrizio Pascual EO # 0.1 103/ul Normal 0.0-0.7 [facility] Comment on above: Performed By: #### C BC #### [facility] [address] [place] [address] Dr. Fabrizio Pascual Eosinophils/100 WBC (Bld) 1.0 % Normal 0.9-7.0 [facility] Comment on above: Performed By: #### C BC #### [facility] [address] [place] [address] Dr. Fabrizio Pascual Erythrocyte distribution width (RBC) [Ratio] 13.1 % Normal 11.0-15.0 [facility] Comment on above: Performed By: #### C BC #### [facility] [address] [place] [address] Dr. Fabrizio Pascual Hematocrit (Bld) [Volume fraction] 32.6 % Critically low 42.0-54.0 [facility] Comment on above: Performed By: #### C BC #### [facility] [address] [place] [address] Dr. Fabrizio Pascual Hemoglobin (Bld) [Mass/Vol] 10.9 g/dL Critically low 14.0-18.0 [facility] Comment on above: Performed By: #### C BC #### [facility] [address] [place] [address] Dr. Fabrizio Pascual IG # 0.06 10e3/ul Critically high 0.00-0.03 [facility] Comment on above: Performed By: #### C BC #### [facility] [address] [place] [address] Dr. Fabrizio Pascual IG % 0.6 % Critically high 0.0-0.5 [facility] Comment on above: Performed By: #### C BC #### [facility] [address] [address] [address] Fabrizio Pacsual LYMPH # 0.6 103/ul Critically low 1.2-3.8 [facility] Comment on above: Performed By: #### C BC #### [facility] [address] [place] [address] Dr. Fabrizio Pascual Lymphocytes/100 WBC (Bld) 5.8 % Critically low 20.5-60.0 [facility] Comment on above: Performed By: #### C BC #### [facility] [address] [place] [address] Dr. Fabrizio Pascual MANUAL DIFF REQ NO Normal [facility] Comment on above: Performed By: #### C BC #### [facility] [address] [place] [address] Dr. Fabrizio Pascual MCH (RBC) [Entitic mass] 29.3 pg Normal 25.9-34.0 [facility] Comment on above: Performed By: #### C BC #### [facility] [address] [place] [address] Dr. Fabrizio Pascual MCHC (RBC) [Mass/Vol] 33.4 g/dL Normal 29.9-35.2 [facility] Comment on above: Performed By: #### C BC #### [facility] [address] [place] [address] Dr. Fabrizio Pascual MCV (RBC) [Entitic vol] 87.6 fL Normal 80.0-94.0 [facility] Comment on above: Performed By: #### C BC #### [facility] [address] [place] [address] Dr. Fabrizio Pascual MONO # 1.4 103/ul Critically high 0.3-0.8 [facility] Comment on above: Performed By: #### C BC #### [facility] [address] [place] [address] Dr. Fabrizio Pascual Monocytes/100 WBC (Bld) 13.4 % Critically high 1.7-12. 0 [facility] Comment on above: Performed By: #### C BC #### [facility] [address] [place] [address] Dr. Fabrizio Pascual NEUT # 8.4 103/ul Critically high 1.4-6.5 [facility] Comment on above: Performed By: #### C BC #### [facility] [address] [address] [address] Fabrizio Pascual Neutrophils/100 WBC (Bld) 79.0 % Critically high 43.0-75.0 [facility] Comment on above: Performed By: #### C BC #### [facility] [address] [address] [address] Fabirzio Pascual Platelet mean volume (Bld) [Entitic vol] 9.1 fL Critically low 9.5-13.5 [facility] Comment on above: Performed By: #### C BC #### [facility] [address] [place] [address] Dr. Fabrizio Pascual PLT 347 103/ul Normal 150-450 [facility] Comment on above: Performed By: #### C BC #### [facility] [address] [address] [address] Fabrizio Pascual RBC 3.72 106/ul Critically low 4.70-6.10 [facility] Comment on above: Performed By: #### C BC #### [facility] [address] [address] [address] Fabrizio Pascual WBC 10.7 103/ul Normal 4.0-11.0 [facility] Comment on above: Performed By: #### C BC #### [facility] [address] [place] [address] Dr. Fabrizio Pascual Covid-19 PCR ([facility])on SARS-CoV-2 (COVID-19) RNA HOWIE+probe Ql (Unsp spec) Not detected Normal NOT DETECTED [facility] Comment on above: Result Comment: When [...] for this test is supported by the [employer] of Health and Human Service's declaration that [...] used). Performed By: #### C VDTBH #### [facility] [address] [place] [address] Dr. Fabrizio Pascual INFLUENZA A AND B [facility] 04-19 [facility] SEE BELOW Normal [facility] Comment on above: Result Comment: Nega tive for Flu A protein angiten. Infection due to Flu A cannot be ruled out. Flu A angiten in the sample may be below the detection limit of the test. Performed By: #### U YADIRA, BMP, TSH #### [facility] [address] [place] [address] Dr[facility] Normal [facility] Comment on above: Result Comment: Nega tive for Flu B protein antigen. Infection due to Flu B cannot be ruled out. Flu B antigen in the sample may be below the detection limit of the test. Performed By: #### U YADIRA, BMP, TSH #### [facility] [address] [place] [address] Dr. Fabrizio Pascual INFLUENZA A AG Negative Normal NEGATIVE SEE COMMENT [facility] Comment on above: Performed By: #### U YADIRA, BMP, TSH #### [facility] [address] [place] [address] Dr. Fabrizio Pascual INFLUENZA B AG Negative Normal NEGATIVE SEE COMMENT [facility] Comment on above: Performed By: #### U YADIRA, BMP, TSH #### [facility] [address] [place] [address] Dr. Fabrizio Pascual INTERNAL CONTROLS Within Normal Limits Normal Wi thin Normal Limits [facility] Comment on above: Performed By: #### U YADIRA, BMP, TSH #### [facility] [address] [place] [address] Dr. Fabrizio Pascual PROF CHEM 8 (BAS METB)on Anion gap [Moles/Vol] 10.8 mmol/L Normal Th [facility] Comment on above: Performed By: #### B AUTOMOTIVE SERVICE PROFESSIONAL, BMP, HSTROPN #### [facility] [address] [place] [address] Dr. Fabrizio Pascual Calcium [Mass/Vol] 8.8 mg/dL Normal 8.5-10.1 [facility] Comment on above: Performed By: #### B AUTOMOTIVE SERVICE PROFESSIONAL, BMP, HSTROPN #### [facility] [address] [place] [address] Dr. Fabrizio Pascual Chloride [Moles/Vol] 94 mmol/L Critically low 98-107 [facility] Comment on above: Performed By: #### B AUTOMOTIVE SERVICE PROFESSIONAL, BMP, HSTROPN #### [facility] [address] [place] [address] Dr. Fabrizio Pascual CO2 [Moles/Vol] 27.7 mmol/L Normal 21.0-32.0 [facility] Comment on above: Performed By: #### B AUTOMOTIVE SERVICE PROFESSIONAL, BMP, HSTROPN #### [facility] [address] [place] [address] Dr. Fabrizio Pascual Creatinine [Mass/Vol] 1.09 mg/dL Normal 0.70-1.30 [facility] Comment on above: Performed By: #### B AUTOMOTIVE SERVICE PROFESSIONAL, BMP, HSTROPN #### [facility] [address] [place] [address] Dr. Fabrizio Pascual EGFR-AF PORTUGUESE >60 Normal >=60 [facility] Comment on above: Performed By: #### B AUTOMOTIVE SERVICE PROFESSIONAL, BMP, HSTROPN #### [facility] [address] [place] [address] Dr. Fabrizio Pascual EGFR-NON AF PORTUGUESE >60 Normal >=60 [facility] Comment on above: Performed By: #### B AUTOMOTIVE SERVICE PROFESSIONAL, BMP, HSTROPN #### [facility] [address] [place] [address] Dr. Fabrizio Pascual Glucose [Mass/Vol] 103 mg/dL Normal 74-106 [facility] Comment on above: Performed By: #### B AUTOMOTIVE SERVICE PROFESSIONAL, BMP, HSTROPN #### [facility] [address] [place] [address] Dr. Fabrizio Pascual Potassium [Moles/Vol] 3.5 mmol/L Normal 3.5-5.1 [facility] Comment on above: Performed By: #### B AUTOMOTIVE SERVICE PROFESSIONAL, BMP, HSTROPN #### [facility] [address] [place] [address] Dr. Fabrizio Pascual Sodium [Moles/Vol] 129 mmol/L Critically low 136-145 [facility] Comment on above: Performed By: #### B AUTOMOTIVE SERVICE PROFESSIONAL, BMP, HSTROPN #### [facility] [address] [place] [address] Dr. Fabrizio Pascual Urea nitrogen [Mass/Vol] 15.0 mg/dL Normal 7.0-18.0 [facility] Comment on above: Performed By: #### B AUTOMOTIVE SERVICE PROFESSIONAL, BMP, HSTROPN #### [facility] [address] [place] [address] Dr. Fabrizio Pascual Urea nitrogen/Creatinine [Mass ratio] 13.8 mg/mg Normal [facility] Comment on above: Performed By: #### B AUTOMOTIVE SERVICE PROFESSIONAL, BMP, HSTROPN #### [facility] [address] [place] [address] Dr. Fabrizio Pascual TROPONIN, HIGH SENSITIVITYon 04-19-2022 HSTROP 8.5 pg/mL Normal 4.0-76.1 [facility] Comment on above: Result Comment: CUT- OFF POINTS HAVE BEEN ESTABLISHED BASED ON THE FOURTH UNIVERSAL DEFINITIONS OF MYOCARDIAL INFARCTION. THE UPPER REFERENCE LIMIT (URL) OF TROPONIN, DEFINED THE 99TH PERCENTILE OF cTnI DISTRIBUTION IN A REFERENCE POPULATION, HAS BEEN CONFIRMED THE DECISION THRESHOLD FOR UT DIAGNOSIS. Performed By: #### B AUTOMOTIVE SERVICE PROFESSIONAL, BMP, HSTROPN #### [facility] [address] [place] [address] Dr. Fabrizio Pascual XR CHEST 1 Von [...] by: JAYDEN VALENTINE Date: 2022-04-19 17:36 Normal [facility] MRI BRAIN WO W CONon [...] by: CORINNE OCHOA Date: 2021-12-14 06:55 Normal [facility] CT CHEST WO CONon 12-13-2021 [...] by: CORINNE OCHOA Date: 2021-12-13 18:10 Normal [facility] OSMOLALITYon 12-02-2021 Osmolality [Osmolality] 275 mosm/kg Critically low 280-301 [facility] Comment on above: Performed By: #### O SMO #### [facility] [address] [address] [address] Fabrizio Pascual CORTISOLon 12-01-2021 Cortisol 1.2 ug/dL Normal [facility] Comment on above: Result Comment: Delio isol AM 6.2 - 19.4 Cortisol PM 2.3 - 11.9 Performed By: #### U YADIRA, BMP, TSH #### [facility] [address] [address] [address] Fabrizio Pascual OSMOLALITY URINEon 2 Osmolality, Urine 236 mOsmol/kg Normal [facility] Comment on above: Result Comment: 24 h r : 300 - 900 Random: 50 - 1400 After 12hr fluid restriction: >850 Performed By: #### U YADIRA, BMP, TSH #### [facility] [address] [place] [address] Dr. Fabrizio Pascual PROF CHEM 8 (BAS METB)on Anion gap [Moles/Vol] 10.1 mmol/L Normal [facility] Comment on above: Performed By: #### U YADIRA, BMP, TSH #### [facility] [address] [address] [address] Fabrizio Pascual Calcium [Mass/Vol] 8.8 mg/dL Normal 8.5-10.1 [facility] Comment on above: Performed By: #### U YADIRA, BMP, TSH #### [facility] [address] [place] [address] Dr. Fabrizio Pascual Chloride [Moles/Vol] 97 mmol/L Critically low 98-107 [facility] Comment on above: Performed By: #### U YADIRA, BMP, TSH #### [facility] [address] [place] [address] Dr. Fabrizio Pascual CO2 [Moles/Vol] 28.9 mmol/L Normal 21.0-32.0 [facility] Comment on above: Performed By: #### U YAIDRA, BMP, TSH #### [facility] [address] [place] [address] Dr. Fabrizio Pascual Creatinine [Mass/Vol] 1.08 mg/dL Normal 0.70-1.30 [facility] Comment on above: Performed By: #### U YADIRA, BMP, TSH #### [facility] [address] [place] [address] Dr. Fabrizio Pascual EGFR-AF PORTUGUESE >60 Normal >=60 [facility] Comment on above: Performed By: #### U YADIRA, BMP, TSH #### [facility] [address] [place] [address] Dr. Fabrizio Pascual EGFR-NON AF [place]UESE >60 Normal >=60 [facility] Comment on above: Performed By: #### U YADIRA, BMP, TSH #### [facility] [address] [place] [address] Dr. Fabrizio Pascual Glucose [Mass/Vol] 106 mg/dL Normal 74-106 [facility] Comment on above: Performed By: #### U YADIRA, BMP, TSH #### [facility] [address] [place] [address] Dr. Fabrizio Pascual Potassium [Moles/Vol] 4.0 mmol/L Normal 3.5-5.1 [facility] Comment on above: Performed By: #### U YADIRA, BMP, TSH #### [facility] [address] [place] [address] Dr. Fabrizio Pascual Sodium [Moles/Vol] 132 mmol/L Critically low 136-145 [facility] Comment on above: Performed By: #### U YADIRA, BMP, TSH #### [facility] [address] [place] [address] Dr. Fabrizio Pascual Urea nitrogen [Mass/Vol] 18.0 mg/dL Normal 7.0-18.0 [facility] Comment on above: Performed By: #### U YADIRA, BMP, TSH #### [facility] [address] [place] [address] Dr. Fabrizio Pascual Urea nitrogen/Creatinine [Mass ratio] 16.7 mg/mg Normal [facility] Comment on above: Performed By: #### U YADIRA, BMP, TSH #### [facility] [facility] [address] [place] [address] Dr. Fabrizio Pascual SODIUM RANDOM URINEon 2021 Sodium (U) [Moles/Vol] 82 mmol/L Normal 30-90 [facility] Comment on above: Performed By: #### B AUTOMOTIVE SERVICE PROFESSIONAL, BMP, HSTROPN #### [facility] [address] [place] [address] Dr. Fabrizio Pascual TSHon 11-30-2021 TSH 1.576 uIU/mL Normal 0.358-3.74 0 [facility] Comment on above: Performed By: #### U YADIRA, BMP, TSH #### [facility] [address] [address] [address] Fabrizio Pascual URIC ACID SERUMon 11-30-2021 Urate [Mass/Vol] 7.2 mg/dL Normal 3.5-7.2 [facility] Comment on above: Performed By: #### U YADIRA, BMP, TSH #### [facility] [address] [address] [address] Fabrizio Pascual PROF CHEM 8 (BAS METB)on Anion gap [Moles/Vol] 14.8 mmol/L Normal Th [facility] Comment on above: Performed By: #### U YADIRA, BMP, TSH #### [facility] [address] [place] [address] Dr. Fabrizio Pascual Calcium [Mass/Vol] 9.1 mg/dL Normal 8.5-10.1 [facility] Comment on above: Performed By: #### U YADIRA, BMP, TSH #### [facility] [address] [place] [address] Dr. Fabrizio Pascual Chloride [Moles/Vol] 91 mmol/L Critically low 98-107 [facility] Comment on above: Performed By: #### U YADIRA, BMP, TSH #### [facility] [address] [place] [address] Dr. Fabrizio Pascual CO2 [Moles/Vol] 22.2 mmol/L Normal 21.0-32.0 [facility] Comment on above: Performed By: #### U YADIRA, BMP, TSH #### [facility] [address] [place] [address] Dr. Fabrizio Pascual Creatinine [Mass/Vol] 0.97 mg/dL Normal 0.70-1.30 [facility] Comment on above: Performed By: #### U YADIRA, BMP, TSH #### [facility] [address] [place] [address] Dr. Fabrizio Pascual EGFR-AF PORTUGUESE >60 Normal >=60 [facility] Comment on above: Performed By: #### U YADIRA, BMP, TSH #### [facility] [address] [place] [address] Dr. Fabrizio Pascual EGFR-NON AF PORTUGUESE >60 Normal >=60 [facility] Comment on above: Performed By: #### U YADIRA, BMP, TSH #### [facility] [address] [place] [address] Dr. Fabrizio Pascual Glucose [Mass/Vol] 144 mg/dL Critically high 74-106 T [facility] Comment on above: Performed By: #### U YADIRA, BMP, TSH #### [facility] [address] [place] [address] Dr. Fabrizio Pascual Potassium [Moles/Vol] 4.0 mmol/L Normal 3.5-5.1 [facility] Comment on above: Performed By: #### U YADIRA, BMP, TSH #### [facility] [address] [place] [address] Dr. Fabrizio Pascual Sodium [Moles/Vol] 124 mmol/L Critically low 136-145 Th [facility] Comment on above: Performed By: #### U YADIRA, BMP, TSH #### [facility] [address] [place] [address] Dr. Fabrizio Pascual Urea nitrogen [Mass/Vol] 18.0 mg/dL Normal 7.0-18.0 [facility] Comment on above: Performed By: #### U YADIRA, BMP, TSH #### [facility] [address] [place] [address] Dr. Fabrizio Pascual Urea nitrogen/Creatinine [Mass ratio] 18.6 mg/mg Normal [facility] Comment on above: Performed By: #### U YADIRA, BMP, TSH #### [facility] [address] [place] [address] Dr. Fabrizio Pascual BNPon 11-15-2021 Natriuretic peptide B (Bld) [Mass/Vol] 1143.0 pg/mL Critically high <=900.0 [facility] Comment on above: Performed By: #### U YADIRA, BMP, TSH #### [facility] [address] [place] [address] Dr. Fabrizio Pascual CBC W MANUAL DIFFon 11-16-19 22 ATYPICAL LYMPH # Normal [facility] Comment on above: Performed By: #### U YADIRA, BMP, TSH #### [facility] [address] [address] [address] Fabrizio Pascual ATYPICAL LYMPH % Normal [facility] Comment on above: Performed By: #### U YADIRA, BMP, TSH #### [facility] [address] [place] [address] Dr. Fabrizio Pascual BAND # 0.0 103/ul Normal 0.0-0.3 [facility] Comment on above: Performed By: #### U YADIRA, BMP, TSH #### [facility] [address] [place] [address] Dr. Fabrizio Pascual BAND % 0 % Normal 0-5 [facility] Comment on above: Performed By: #### U YADIRA, BMP, TSH #### [facility] [address] [place] [address] Dr. Fabrizio Pascual BASOM # 0.00 103/ul Normal 0.00-0.10 [facility] Comment on above: Performed By: #### U YADIRA, BMP, TSH #### [facility] [address] [place] [address] Dr. Fabrizio Pascual BASOM % 0.0 % Critically low 0.2-2.0 [facility] Comment on above: Performed By: #### U YADIRA, BMP, TSH #### [facility] [address] [place] [address] Dr. Fabrizio Pascual BLAST # Normal [facility] Comment on above: Performed By: #### U YADIRA, BMP, TSH #### [facility] [address] [place] [address] Dr. Fabrizio Pascual BLAST % Normal [facility] Comment on above: Performed By: #### U YADIRA, BMP, TSH #### [facility] [address] [place] [address] Dr. Fabrizio Pascual CORRECTED WBC Normal 4.0-11.0 [facility] Comment on above: Performed By: #### U YADIRA, BMP, TSH #### [facility] [address] [place] [address] Dr. Fabrizio Pascual EOS # 0.24 103/ul Normal 0.00-0.70 [facility] Comment on above: Performed By: #### U YADIRA, BMP, TSH #### [facility] [address] [address] [address] Fabrizio Pascual EOS% 2.0 % Normal 0.9-7.0 [facility] Comment on above: Performed By: #### U YADIRA, BMP, TSH #### [facility] [address] [address] [address] Fabrizio Pascual HCT 37.1 % Critically low 42.0-54.0 [facility] Comment on above: Performed By: #### U YADIRA, BMP, TSH #### [facility] [address] [address] [address] Fabrizio Pascual HGB 12.3 g/dl Critically low 14.0-18.0 [facility] Comment on above: Performed By: #### U YADIRA, BMP, TSH #### [facility] [address] [address] [address] Fabrizio Pascual LYMPHM # 0.60 103/ul Critically low 1.20-3.80 [facility] Comment on above: Performed By: #### U YADIRA, BMP, TSH #### [facility] [address] [address] [address] Fabrizio Pascual LYMPHM% 5.0 % Critically low 20.5-60.0 [facility] Comment on above: Performed By: #### U YADIRA, BMP, TSH #### [facility] [address] [address] [address] Fabrizio Pascual MCH 29.3 pg Normal 25.9-34.0 [facility] Comment on above: Performed By: #### U YADIRA, BMP, TSH #### [facility] [address] [address] [address] Fabrizio Pascual MCHC 33.2 g/dl Normal 29.9-35.2 [facility] Comment on above: Performed By: #### U YADIRA, BMP, TSH #### [facility] [address] [address] [address] Fabrizio Pascual MCV 88.3 fL Normal 80.0-94.0 [facility] Comment on above: Performed By: #### U YADIRA, BMP, TSH #### [facility] [address] [address] [address] Fabrizio Pascual METAMYELOCYTE # Normal [facility] Comment on above: Performed By: #### U YADIRA, BMP, TSH #### [facility] [address] [address] [address] Fabrizio Pascual METAMYELOCYTE % Normal [facility] Comment on above: Performed By: #### U YADIRA, BMP, TSH #### [facility] [address] [address] [address] Fabrizio Pascual MONOM# 0.60 103/ul Normal 0.30-0.80 [facility] Comment on above: Performed By: #### U YADIRA, BMP, TSH #### [facility] [address] [address] [address] Fabrizio Pascual MONOM% 5.0 % Normal 1.7-12.0 [facility] Comment on above: Performed By: #### U YADIRA, BMP, TSH #### [facility] [address] [address] [address] Fabrizio Pascual MPV 9.2 fL Critically low 9.5-13.5 [facility] Comment on above: Performed By: #### U YADIRA, BMP, TSH #### [facility] [address] [address] [address] Fabrizio Pascual MYELOCYTE # Normal [facility] Comment on above: Performed By: #### U YADIRA, BMP, TSH #### [facility] [address] [address] [address] Fabrizio Pascual MYELOCYTE % Normal [facility] Comment on above: Performed By: #### U YADIRA, BMP, TSH #### [facility] [address] [place] [address] Dr. Fabrizio Pascual NRBC Normal [facility] Comment on above: Performed By: #### U YADIRA, BMP, TSH #### [facility] [address] [address] [address] Fabrizio Pascual PLT 227 103/ul Normal 150-450 [facility] Comment on above: Performed By: #### U YADIRA, BMP, TSH #### [facility] [address] [address] [address] Fabrizio Pascual RBC 4.20 106/ul Critically low 4.70-6.10 [facility] Comment on above: Performed By: #### U YADIRA, BMP, TSH #### [facility] [address] [address] [address] Fabrizio Pascual RDW 14.0 % Normal 11.0-15.0 [facility] Comment on above: Performed By: #### U YADIRA, BMP, TSH #### [facility] [address] [address] [address] Fabrizio Pascual SEG # 10.65 103/ul Critically high 1.40-6.50 [facility] Comment on above: Performed By: #### U YADIRA, BMP, TSH #### [facility] [address] [address] [address] Fabrizio Pascual SEG % 88.0 % Critically high 43.0-75.0 [facility] Comment on above: Performed By: #### U YADIRA, BMP, TSH #### [facility] [address] [address] [address] Fabrizio Pascual WBC 12.1 103/ul Critically high 4.0-11.0 [facility] Comment on above: Performed By: #### U YADIRA, BMP, TSH #### [facility] [address] [address] [address] Fabrizio Pascual CULTURE BLOODon 11-15-2021 Microscopic examination of blood, culture Culture Observations: NO GROWTH AT 5 DAYS. Normal [facility] Comment on above: Performed By: #### U YADIRA, BMP, TSH #### [facility] [address] [address] [address] Fabrizio Pascual Microscopic examination of blood, culture Culture Observations: NO GROWTH AT 5 DAYS. Normal [facility] Comment on above: Performed By: #### U YADIRA, BMP, TSH #### [facility] [address] [address] [address] Fabrizio Pascual Covid-19 PCR (CVDTB)on SARS-CoV-2 (COVID-19) RNA HOWIE+probe Ql (Unsp spec) Not detected Normal NOT DETECTED [facility] Comment on above: Result Comment: When [...] for this test is supported by the [employer] Teacher of Health and Human Service's declaration that [...] By: #### U YADIRA, BMP, TSH #### [facility] [address] [place] [address] Dr. Fabrizio Pascual LACTATE/LACTIC ACIDon 2021 Lactate [Moles/Vol] 1.2 mmol/L Normal 0.4-1.9 [facility] Comment on above: Performed By: #### B AUTOMOTIVE SERVICE PROFESSIONAL, BMP, HSTROPN #### [facility] [address] [place] [address] Dr. Fabrizio Pascual PROF CHEM 8 (BAS METB)on Anion gap [Moles/Vol] 13.7 mmol/L Normal [facility] Comment on above: Performed By: #### U YADIRA, BMP, TSH #### [facility] [address] [place] [address] Dr. Fabrizio Pascual Calcium [Mass/Vol] 8.8 mg/dL Normal 8.5-10.1 [facility] Comment on above: Performed By: #### U YADIRA, BMP, TSH #### [facility] [address] [place] [address] Dr. Fabrizio Pascual Chloride [Moles/Vol] 91 mmol/L Critically low 98-107 [facility] Comment on above: Performed By: #### U YADIRA, BMP, TSH #### [facility] [address] [address] [address] Fabrizio Pascual CO2 [Moles/Vol] 25.0 mmol/L Normal 21.0-32.0 [facility] Comment on above: Performed By: #### U YADIRA, BMP, TSH #### [facility] [address] [address] [address] Fabrizio Pascual Creatinine [Mass/Vol] 0.97 mg/dL Normal 0.70-1.30 [facility] Comment on above: Performed By: #### U YADIRA, BMP, TSH #### [facility] [address] [place] [address] Dr. Fabrizio Pascual EGFR-AF PORTUGUESE >60 Normal >=60 [facility] Comment on above: Performed By: #### U YADIRA, BMP, TSH #### [facility] [address] [address] [address] Fabrizio Pascual EGFR-NON AF PORTUGUESE >60 Normal >=60 [facility] Comment on above: Performed By: #### U YADIRA, BMP, TSH #### [facility] [address] [address] [address] Fabrizio Pascual Glucose [Mass/Vol] 85 mg/dL Normal 74-106 [facility] Comment on above: Performed By: #### U YADIRA, BMP, TSH #### [facility] [address] [address] [address] Fabrizio Pascual Potassium [Moles/Vol] 3.7 mmol/L Normal 3.5-5.1 [facility] Comment on above: Performed By: #### U YADIRA, BMP, TSH #### [facility] [address] [address] [address] Fabrizio Pascual Sodium [Moles/Vol] 126 mmol/L Critically low 136-145 Th [facility] Comment on above: Performed By: #### U YADIRA, BMP, TSH #### [facility] [address] [address] [address] Fabrizio Pascual Urea nitrogen [Mass/Vol] 12.0 mg/dL Normal 7.0-18.0 [facility] Comment on above: Performed By: #### U IVANA MAY, TSH #### [facility] [address] [address] [address] Fabrizio Pascual Urea nitrogen/Creatinine [Mass ratio] 12.4 mg/mg Normal [facility] Comment on above: Performed By: #### U IVANA MAY, TSH #### [facility] [address] [address] [address] Fabrizio Pascual TROPONIN, HIGH SENSITIVITYon 11-15-2021 HSTROP 8.6 pg/mL Normal 4.0-76.1 [facility] Comment on above: Result Comment: CUT- OFF POINTS HAVE BEEN ESTABLISHED BASED ON THE FOURTH UNIVERSAL DEFINITIONS OF MYOCARDIAL INFARCTION. THE UPPER REFERENCE LIMIT (URL) OF TROPONIN, DEFINED THE 99TH PERCENTILE OF cTnI DISTRIBUTION IN A REFERENCE POPULATION, HAS BEEN CONFIRMED THE DECISION THRESHOLD FOR UT DIAGNOSIS. Performed By: #### U IVANA MAY, TSH #### [facility] [address] [address] [address] Fabrizio Pascual XR CHEST 1 Von [...] by: DECLAN TRIPLETT Date: 2021-11-15 19:25 Normal [facility] COVID-19 Positive/NegativeOr dered By: Gregg Hilliard on 10-22-2021 SARS-CoV-2 (COVID-19) N gene HOWIE+probe Ql (Resp) Negative Negative [facility] Comment on above: Testing for SARS-CoV -2 by RT-PCR This test was developed and its performance characteristics determined by [employer] ([employer]) and validated at the [facility]. This test has not been FDA [...] year By signing my name below, I, Janine Mcmanus LPNibmarge, attest that this documentation has been prepared [...] negative for complaint. Vitals Vital Signs Recorded: [id number] 02:51PM Heart Rate77, L Radial Udxducav028, LUE, Sitting Eksradjwy62, LUE, Sitting Height6 ft Iryvkj144 lb BMI Kmbvezoxbt15.87 kg/m2 BSA Calculated2.02 Tobacco Useb) No Fall [...] Apr 29 2021 5:34PM EST (Author) Normal FUJIAN HAIYUAN Tobacco Screening.on 021 Fall risk assessment a) No falls within the last year [facility] [employer] 250 DO Work Phone: Tobacco use status [facility] b) No M [facility] [employer] 250 DO Work Phone: MRI IAC WO/Won 12-21-2018 MRI IAC WO/W Patient Name: MARY MCADAMS STUDY: MRI IAC WO/W; 12/21/2018 2:15 pm INDICATION: CPA lesion. COMPARISON: None. ACCESSION NUMBER(S): [id number] ORDERING CLINICIAN: ERIN BAUTISTA TECHNIQUE: T2, FLAIR, [...] signed by: PASHA DEGROOT MD, PHD Normal [facility] Vital Signs Date Time Vital Sign Value Performing Clinician Facility 01-17-2025 11:12 Body height 182.9 cm [facility] 01-17-2025 11:12-040 Body mass index (BMI) [Ratio] 18.58 kg/m2 [facility] 01-17-2025 11:12-040 Body weight 62.14 kg [facility] 01-17-2025 11:12-040 Diastolic blood pressure 46 mm[Hg] [facility] 01-17-2025 11:12-040 Heart rate 92 /min [facility] 01-17-2025 11:12-0400 Systolic blood pressure 94 mm[Hg] [facility] 01-15-2025 08:48-0400 Body height 182.9 cm Ning Godoy WRAP 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 Work Phone: [facility] 01-15-2025 08:48-0400 Diastolic blood pressure 52 mm[Hg] Ning Godoy WRAP 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 Work Phone: [facility] 01-15-2025 08:48-0400 Heart rate 91 /min Ning Godoy WRAP 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 Work Phone: [facility] 01-15-2025 08:48-0400 Systolic blood pressure 78 mm[Hg] Ning Godoy WRAP 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 Work Phone: [facility] 01-09-2025 16:00-0400 Body temperature 97.6 [degF] Adam Ball DO Work Phone: [facility] 01-09-2025 16:00-0400 Diastolic blood pressure 62 mm[Hg] Adam Ball DO Work Phone: [facility] 01-09-2025 16:00-0400 Heart rate 98 /min Adam Ball DO Work Phone: [facility] 01-09-2025 16:00-0400 Inhaled oxygen flow rate 3 L/min Adam Ball DO Work Phone: [facility] 01-09-2025 16:00-0400 Respiratory rate 18 /min Adam Ball DO Work Phone: [facility] 01-09-2025 16:00-0400 SaO2% (BldA) [Mass fraction] 97 % Adam Ball DO Work Phone: [facility] 01-09-2025 16:00-0400 Systolic blood pressure 108 mm[Hg] Adam Ball DO Work Phone: [facility] 01-09-2025 05:58-0400 Body weight 63.2 kg Adam Ball DO Work Phone: [facility] 01-06-2025 14:20-0400 Body height 182.88 cm Adam Ball DO Work Phone: [facility] 01-05-2025 14:00-0400 Diastolic blood pressure 75 mm[Hg] Adam Ball DO Work Phone: [facility] 01-05-2025 14:00-0400 Heart rate 85 /min Adam Ball DO Work Phone: [facility] 01-05-2025 14:00-0400 Inhaled oxygen flow rate 4 L/min Adam Ball DO Work Phone: [facility] 01-05-2025 14:00-0400 Respiratory rate 20 /min Adam Ball DO Work Phone: [facility] 01-05-2025 14:00-0400 SaO2% (BldA) [Mass fraction] 100 % Adam Ball DO Work Phone: [facility] 01-05-2025 14:00-0400 Systolic blood pressure 103 mm[Hg] Adam Ball DO Work Phone: [facility] 01-05-2025 11:18-0400 Inhaled oxygen concentration 30 % Adam Ball DO Work Phone: [facility] 01-05-2025 01:00-0400 Inhaled oxygen concentration 30 % Adam Ball DO Work Phone: [facility] 01-04-2025 22:04-0400 Body height 182.88 cm Adam Ball DO Work Phone: [facility] 01-04-2025 22:04-0400 Body temperature 98.3 [degF] Adam Ball DO Work Phone: [facility] 01-04-2025 22:04-0400 Body weight 63 kg Adam Ball DO Work Phone: [facility] 11-19-2024 08:58-0400 Body height 182.88 cm Adam Ball DO Work Phone: [facility] 11-19-2024 08:58-0400 Body mass index (BMI) [Ratio] 18.3 kg/m2 Adam Ball DO Work Phone: [facility] 11-19-2024 08:58-0400 Body weight 61.34 kg Adam Ball DO Work Phone: [facility] 11-19-2024 08:58-0400 Diastolic blood pressure 70 mm[Hg] Adam Ball DO Work Phone: [facility] 11-19-2024 08:58-0400 Heart rate 98 /min Adam Ball DO Work Phone: [facility] 11-19-2024 08:58-0400 Respiratory rate 14 /min Adam Ball DO Work Phone: [facility] 11-19-2024 08:58-0400 SaO2% (BldA) [Mass fraction] 99 % Adam Ball DO Work Phone: [facility] 11-19-2024 08:58-0400 Systolic blood pressure 122 mm[Hg] Adam Ball DO Work Phone: [facility] 11-12-2024 16:00-0400 Diastolic blood pressure 75 mm[Hg] Adam Ball DO Work Phone: [facility] 11-12-2024 16:00-0400 Heart rate 106 /min Adam Ball DO Work Phone: [facility] 11-12-2024 16:00-0400 Inhaled oxygen flow rate 2 L/min Adam Ball DO Work Phone: [facility] 11-12-2024 16:00-0400 Respiratory rate 18 /min Aadm Ball DO Work Phone: [facility] 11-12-2024 16:00-0400 SaO2% (BldA) [Mass fraction] 100 % Adam Ball DO Work Phone: [facility] 11-12-2024 16:00-0400 Systolic blood pressure 121 mm[Hg] Adam Ball DO Work Phone: [facility] 11-12-2024 07:54-0400 Body temperature 97.3 [degF] Adam Ball DO Work Phone: [facility] 11-12-2024 06:00-0400 Body weight 61.8 kg Adma Ball DO Work Phone: [facility] 11-11-2024 14:36-0400 Body height 182.88 cm Adam Ball DO Work Phone: [facility] 11-11-2024 03:30-0400 Diastolic blood pressure 70 mm[Hg] Adam Ball DO Work Phone: [facility] 11-11-2024 03:30-0400 Heart rate 109 /min Adam Ball DO Work Phone: [facility] 11-11-2024 03:30-0400 Inhaled oxygen flow rate 2 L/min Adam Ball DO Work Phone: [facility] 11-11-2024 03:30-0400 Respiratory rate 24 /min Adam Ball DO Work Phone: [facility] 11-11-2024 03:30-0400 SaO2% (BldA) [Mass fraction] 98 % Adam Ball DO Work Phone: [facility] 11-11-2024 03:30-0400 Systolic blood pressure 105 mm[Hg] Adam Ball DO Work Phone: [facility] 11-11-2024 02:37-0400 Body temperature 97.6 [degF] Adam Ball DO Work Phone: [facility] 11-10-2024 22:44-0400 Body height 182.88 cm Adam Ball DO Work Phone: [facility] 11-10-2024 22:44-0400 Body weight 63.5 kg Adam Ball DO Work Phone: [facility] 10-31-2024 11:23-0400 Body height 185.4 cm Shannon Gonzalez MD Work Phone: [facility] 10-31-2024 11:23-0400 Body mass index (BMI) [Ratio] 18.07 kg/m2 Shannon Gonzalez MD Work Phone: [facility] 10-31-2024 11:23-0400 Body weight 62.14 kg Shannon Gonzalez MD Work Phone: [facility] 10-31-2024 11:23-0400 Diastolic blood pressure 68 mm[Hg] Shannno Gonzalez MD Work Phone: [facility] 10-31-2024 11:23-0400 Heart rate 88 /min Shannon Gonzalez MD Work [facility]: [facility] [facility] 10-31-2024 11:23-0400 Systolic blood pressure 118 mm[Hg] Shannon Gonzalez MD Work Phone: [facility] 09-02-2024 14:55-0400 Body height 182.88 cm Adam Ball DO Work Phone: [facility] 09-02-2024 14:55-0400 Body mass index (BMI) [Ratio] 18.8 kg/m2 Adam Ball DO Work Phone: [facility] 09-02-2024 14:55-0400 Body weight 63.16 kg Adam Ball DO Work Phone: [facility] 09-02-2024 14:55-0400 Diastolic blood pressure 70 mm[Hg] Adam Ball DO Work Phone: [facility] 09-02-2024 14:55-0400 Heart rate 102 /min Adam Ball DO Work Phone: [facility] 09-02-2024 14:55-0400 Respiratory rate 12 /min Adam Ball DO Work Phone: [facility] 09-02-2024 14:55-0400 SaO2% (BldA) [Mass fraction] 94 % Adam Ball DO Work Phone: [facility] 09-02-2024 14:55-0400 Systolic blood pressure 104 mm[Hg] Adam Ball DO Work Phone: [facility] 07-25-2024 10:08-0400 Body height 185.4 cm [facility] 07-25-2024 10:08-0400 Body mass index (BMI) [Ratio] 18.6 kg/m2 [facility] 07-25-2024 10:08-0400 Body weight 63.96 kg [facility] 07-25-2024 10:08-0400 Diastolic blood pressure 68 mm[Hg] [facility] 07-25-2024 10:08-0400 Heart rate 103 /min [facility] 07-25-2024 10:08-0400 Systolic blood pressure 106 mm[Hg] [facility] 07-23-2024 16:49-0400 Body height 182.9 cm Edward Furlong DO Work Phone: [facility] 07-23-2024 16:49-0400 Body mass index (BMI) [Ratio] 18.88 kg/m2 Edward Furlong DO Work Phone: [facility] 07-23-2024 16:49-0400 Body temperature 97.7 [degF] Edward Furlong DO Work Phone: [facility] 07-23-2024 16:49-0400 Body weight 63.14 kg Edward Furlong DO Work Phone: [facility] 07-23-2024 16:49-0400 Diastolic blood pressure 66 mm[Hg] Edward Furlong DO Work Phone: [facility] 07-23-2024 16:49-0400 Heart rate 76 /min Edward Furlong DO Work Phone: [facility] 07-23-2024 16:49-0400 Respiratory rate 18 /min Edward Furlong DO Work Phone: [facility] 07-23-2024 16:49-0400 SaO2% (BldA) [Mass fraction] 97 % Edward Furlong DO Work Phone: [facility] 07-23-2024 16:49-0400 Systolic blood pressure 114 mm[Hg] Edward Furlong DO Work Phone: [facility] 07-16-2024 15:02-0500 Body temperature 97.5 [degF] Edward Furlong DO Work Phone: [facility] 07-16-2024 15:02-0500 Body weight 63.78 kg Edward Furlong DO Work Phone: [facility] 07-16-2024 15:02-0500 Diastolic blood pressure 42 mm[Hg] Edward Furlong DO Work Phone: [facility] 07-16-2024 15:02-0500 Heart rate 80 /min Edward Furlong DO Work Phone: [facility] 07-16-2024 15:02-0500 Respiratory rate 20 /min Edward Furlong DO Work Phone: [facility] 07-16-2024 15:02-0500 SaO2% (BldA) [Mass fraction] 94 % Edward Furlong DO Work Phone: [facility] 07-16-2024 15:02-0500 Systolic blood pressure 64 mm[Hg] Edward Furlong DO Work Phone: [facility] 07-15-2024 15:06-0500 Body height 182.88 cm Adam Ball DO Work Phone: [facility] 07-15-2024 15:06-0500 Diastolic blood pressure 65 mm[Hg] Adam Ball DO Work Phone: [facility] 07-15-2024 15:06-0500 Heart rate 85 /min Adam Ball DO Work Phone: [facility] 07-15-2024 15:06-0500 Inhaled oxygen flow rate 2 L/min Adam Ball DO Work Phone: [facility] 07-15-2024 15:06-0500 Respiratory rate 20 /min Adam Ball DO Work Phone: [facility] 07-15-2024 15:06-0500 SaO2% (BldA) [Mass fraction] 78 % Adam Ball DO Work Phone: [facility] 07-15-2024 15:06-0500 Systolic blood pressure 99 mm[Hg] Adam Ball DO Work Phone: [facility] 07-10-2024 15:49-0500 Body temperature 97.59 [degF] Edward Furlong [facility] 07-10-2024 15:49-0500 Body weight 63.96 kg Edward Furlong DO Work Phone: [facility] 07-10-2024 15:49-0500 Diastolic blood pressure 62 mm[Hg] Edward Furlong [facility] 07-10-2024 15:49-0500 Heart rate 84 /min Edward Furlong DO Work [facility]: [facility] 07-10-2024 15:49-0500 Respiratory rate 18 /min Edward Furlong DO Work Phone: [facility] 07-10-2024 15:49-0500 SaO2% (BldA) [Mass fraction] 97 % Edward Furlong DO [facility] 07-10-2024 15:49-0500 Systolic blood pressure 124 mm[Hg] Edward Furlong DO Work Phone: [facility] 07-09-2024 12:05-0500 Heart rate 91 /min Adam Ball DO Work Phone: [facility] 07-09-2024 12:05-0500 Respiratory rate 20 /min Adam Ball DO Work Phone: [facility] 07-09-2024 08:01-0500 Body temperature 98.1 [degF] Adam Ball DO Work Phone: [facility] 07-09-2024 08:01-0500 Diastolic blood pressure 83 mm[Hg] Adam Ball DO Work Phone: [facility] 07-09-2024 08:01-0500 SaO2% (BldA) [Mass fraction] 96 % Adam Ball DO Work Phone: [facility] 07-09-2024 08:01-0500 Systolic blood pressure 143 mm[Hg] Adam Ball DO Work Phone: [facility] 07-09-2024 05:36-0500 Body weight 65.9 kg Adam Ball DO Work Phone: [facility] 07-07-2024 17:38-0500 Inhaled oxygen flow rate 2 L/min Adam Ball DO Work Phone: [facility] 07-04-2024 15:38-0500 Body height 182.88 cm Adam Ball DO Work Phone: [facility] 07-03-2024 23:10-0500 Diastolic blood pressure 86 mm[Hg] Adam Ball DO Work Phone: [facility] 07-03-2024 23:10-0500 Heart rate 94 /min Adam Ball DO Work Phone: [facility] 07-03-2024 23:10-0500 Respiratory rate 18 /min Adam Ball DO Work Phone: [facility] 07-03-2024 23:10-0500 SaO2% (BldA) [Mass fraction] 97 % Adam Ball DO Work Phone: [facility] 07-03-2024 23:10-0500 Systolic blood pressure 139 mm[Hg] Adam Ball DO Work Phone: [facility] 07-03-2024 21:14-0500 Inhaled oxygen flow rate 2 L/min Adam Ball DO Work Phone: [facility] 07-03-2024 18:33-0500 Body height 182.88 cm Adam Ball DO Work Phone: [facility] 07-03-2024 18:33-0500 Body temperature 97.7 [degF] Adam Ball DO Work Phone: [facility] 07-03-2024 18:33-0500 Body weight 68.03 kg Adam Ball DO Work Phone: [facility] 06-12-2024 13:35-0500 Diastolic blood pressure 76 mm[Hg] [address] 06-12-2024 13:35-0500 Heart rate 92 /min [address] 06-12-2024 13:35-0500 Systolic blood pressure 118 mm[Hg] [address] 06-03-2024 14:43-0500 Body height 182.88 cm Adam Ball DO Work Phone: [facility] 06-03-2024 14:43-0500 Body mass index (BMI) [Ratio] 21.2 kg/m2 Adam Ball DO Work Phone: [facility] 06-03-2024 14:43-0500 Body weight 71.21 kg Adam Ball DO Work Phone: [facility] 06-03-2024 14:43-0500 Diastolic blood pressure 72 mm[Hg] Adam Ball DO Work Phone: [facility] 06-03-2024 14:43-0500 Heart rate 106 /min Adam Ball DO Work Phone: [facility] 06-03-2024 14:43-0500 Respiratory rate 14 /min Adam Ball DO Work Phone: [facility] 06-03-2024 14:43-0500 Systolic blood pressure 105 mm[Hg] Adam Ball DO Work Phone: [facility] 05-24-2024 13:22-0500 Body height 182.9 cm Shannon Gonzalez MD Work Phone: [facility] 05-24-2024 13:22-0500 Body mass index (BMI) [Ratio] 21.18 kg/m2 Shannon Gonzalez MD Work Phone: [facility] 05-24-2024 13:22-0500 Body weight 70.85 kg Shannon Gonzalez MD Work Phone: [facility] 05-24-2024 13:22-0500 Diastolic blood pressure 48 mm[Hg] Shannon Gonzalez MD Work Phone: [facility] 05-24-2024 13:22-0500 Heart rate 68 /min Shannon Gonzalez MD Work Phone: [facility] 05-24-2024 13:22-0500 Systolic blood pressure 90 mm[Hg] Shannon Gonzalez MD Work Phone: [facility] 05-01-2024 11:40-0500 Body height 182.88 cm Adam Ball DO Work Phone: [facility] 05-01-2024 11:40-0500 Body mass index (BMI) [Ratio] 21.7 kg/m2 Adam Ball DO Work Phone: [facility] 05-01-2024 11:40-0500 Body temperature 96.5 [degF] Adam Ball DO Work Phone: [facility] 05-01-2024 11:40-0500 Body weight 72.57 kg Adam Ball DO Work Phone: [facility] 05-01-2024 11:40-0500 Diastolic blood pressure 44 mm[Hg] Adam Ball DO Work Phone: [facility] 05-01-2024 11:40-0500 Heart rate 46 /min Adam Ball DO Work Phone: [facility] 05-01-2024 11:40-0500 SaO2% (BldA) [Mass fraction] 90 % Adam Ball DO Work Phone: [facility] 05-01-2024 11:40-0500 Systolic blood pressure 90 mm[Hg] Adam Ball DO Work Phone: [facility] 03-27-2024 15:22-0500 Body height 182.9 cm Shannon Gonzalez MD Work Phone: [facility] 03-27-2024 15:22-0500 Body mass index (BMI) [Ratio] 20.61 kg/m2 Shannon Gonzalez MD Work Phone: [facility] 03-27-2024 15:22-0500 Body weight 68.95 kg Shannon Gonzalez MD Work Phone: [facility] 03-27-2024 15:22-0500 Diastolic blood pressure 60 mm[Hg] Shannon Gonzalez MD Work Phone: [facility] 03-27-2024 15:22-0500 Heart rate 71 /min Shannon Gonzalez MD Work Phone: [facility] 03-27-2024 15:22-0500 Systolic blood pressure 108 mm[Hg] Shannon Gonzalez MD Work Phone: [facility] 03-25-2024 14:13-0500 Body height 182.88 cm Adam Ball DO Work Phone: [facility] 03-25-2024 14:13-0500 Body mass index (BMI) [Ratio] 20.5 kg/m2 Adam Ball DO Work Phone: [facility] 03-25-2024 14:13-0500 Body weight 68.71 kg Adam Ball DO Work Phone: [facility] 03-25-2024 14:13-0500 Diastolic blood pressure 42 mm[Hg] Adam Ball DO Work Phone: [facility] 03-25-2024 14:13-0500 Heart rate 86 /min Adam Ball DO Work Phone: [facility] 03-25-2024 14:13-0500 SaO2% (BldA) [Mass fraction] 94 % Adam Ball DO Work Phone: [facility] 03-25-2024 14:13-0500 Systolic blood pressure 90 mm[Hg] Adam Ball DO Work Phone: [facility] 03-20-2024 14:50-0500 Body height 182.88 cm DO Adam Ball Work Phone: [facility] 03-20-2024 12:05-0500 Diastolic blood pressure 54 mm[Hg] DO Adam Ball Work Phone: [facility] 03-20-2024 12:05-0500 Systolic blood pressure 87 mm[Hg] DO Adam Ball Work Phone: [facility] 03-20-2024 12:00-0500 Body temperature 97.7 [degF] DO Adam Ball Work Phone: [facility] 03-20-2024 12:00-0500 Heart rate 71 /min DO Adam Ball Work Phone: [facility] 03-20-2024 12:00-0500 Inhaled oxygen flow rate 2 L/min DO Adam Ball Work Phone: [facility] 03-20-2024 12:00-0500 Respiratory rate 18 /min DO Adam Ball Work Phone: [facility] 03-20-2024 12:00-0500 SaO2% (BldA) [Mass fraction] 100 % DO Adam Ball Work Phone: [facility] 03-20-2024 06:00-0500 Body weight 73 kg DO Adam Ball Work Phone: [facility] 03-08-2024 13:27-0400 Body height 182.88 cm DO Adam Ball Work Phone: [facility] 03-08-2024 13:27-0400 Body mass index (BMI) [Ratio] 21.9 kg/m2 DO Adam Ball Work Phone: [facility] 03-08-2024 13:27-0400 Body weight 73.59 kg DO Adam Ball Work Phone: [facility] 03-08-2024 13:27-0400 Diastolic blood pressure 91 mm[Hg] DO Adam Ball Work Phone: [facility] 03-08-2024 13:27-0400 Heart rate 86 /min DO Adam Ball Work Phone: [facility] 03-08-2024 13:27-0400 Respiratory rate 12 /min DO Adam Ball Work Phone: [facility] 03-08-2024 13:27-0400 SaO2% (BldA) [Mass fraction] 92 % DO Adam Ball Work Phone: [facility] 03-08-2024 13:27-0400 Systolic blood pressure 154 mm[Hg] DO Adam Ball Work Phone: [facility] 03-01-2024 15:58-0400 Diastolic blood pressure 66 mm[Hg] DO Adam Ball Work Phone: [facility] 03-01-2024 15:58-0400 Heart rate 70 /min DO Adam Ball Work Phone: [facility] 03-01-2024 15:58-0400 Inhaled oxygen flow rate 2 L/min DO Adam Ball Work Phone: [facility] 03-01-2024 15:58-0400 Respiratory rate 20 /min DO Adam Ball Work Phone: [facility] 03-01-2024 15:58-0400 SaO2% (BldA) [Mass fraction] 98 % DO Adam Ball Work Phone: [facility] 03-01-2024 15:58-0400 Systolic blood pressure 101 mm[Hg] DO Adam Ball Work Phone: [facility] 03-01-2024 15:25-0400 Body height 182.88 cm DO Adam Ball Work Phone: [facility] 03-01-2024 09:11-0400 Body temperature 97.8 [degF] DO Adam Ball Work Phone: [facility] 03-01-2024 05:30-0400 Body weight 73.4 kg DO Adam Ball Work Phone: [facility] 02-28-2024 23:38-0400 Inhaled oxygen flow rate 2 L/min DO Adam Ball Work Phone: [facility] 02-28-2024 23:38-0400 Respiratory rate 22 /min DO Adam Ball Work Phone: [facility] 02-28-2024 23:38-0400 SaO2% (BldA) [Mass fraction] 94 % DO Adam Ball Work Phone: [facility] 02-28-2024 23:36-0400 Diastolic blood pressure 94 mm[Hg] DO Adam Ball Work Phone: [facility] 02-28-2024 23:36-0400 Heart rate 118 /min DO Adam Ball Work Phone: [facility] 02-28-2024 23:36-0400 Systolic blood pressure 169 mm[Hg] DO Adam Ball Work Phone: [facility] 02-28-2024 21:46-0400 Body height 182.88 cm DO Adam Ball Work Phone: [facility] 02-28-2024 21:46-0400 Body temperature 97.3 [degF] DO Adam Ball Work Phone: [facility] 02-28-2024 21:46-0400 Body weight 77.9 kg DO Adam Ball Work Phone: [facility] 02-20-2024 [id number]:[id number] Body height 182.9 cm Olivia Toro [facility] 02-20-2024 14:22-0400 Body mass index (BMI) [Ratio] 22.92 kg/m2 Olivia Toro [facility] 02-20-2024 14:0400 Body weight 76.66 [facility]-20-[facility]24 14:22-0400 Diastolic blood pressure 80 mm[Hg] [facility] [id number]:[id number] Heart rate 102 /min [facility] 02-20-2024 [id number]:220400 Systolic blood pressure 140 mm[Hg] [facility] 02-14-2024 [id number]:[id number] Body height 182.88 cm DO Adam Ball Work Phone: [facility] 02-14-2024 14:25-0400 Body mass index (BMI) [Ratio] 23.1 kg/m2 DO Adam Ball Work Phone: [facility] 02-14-2024 14:250400 Body weight 77.16 kg DO Adam Ball Work Phone: [facility] 02-14-2024 14:25-0400 Diastolic blood pressure 94 mm[Hg] DO Adam Ball Work Phone: [facility] 02-14-2024 14:25-0400 Heart rate 114 /min DO Adam Ball Work Phone: [facility] 02-14-2024 14:25-0400 Respiratory rate 20 /min DO Adam Ball Work Phone: [facility] 02-14-2024 14:25-0400 Systolic blood pressure 155 mm[Hg] DO Adam Ball Work Phone: [facility] 02-04-2024 16:00-0400 Inhaled oxygen flow rate 2 L/min DO Adam Ball Work Phone: [facility] 02-04-2024 13:35-0400 Heart rate 86 /min DO Adam Ball Work Phone: [facility] 02-04-2024 13:35-0400 Respiratory rate 18 /min DO Adam Ball Work Phone: [facility] 02-04-2024 12:40-0400 Body temperature 97.5 [degF] DO Adam Ball Work Phone: [facility] 02-04-2024 12:40-0400 Diastolic blood pressure 78 mm[Hg] DO Adam Ball Work Phone: [facility] 02-04-2024 12:40-0400 SaO2% (BldA) [Mass fraction] 98 % DO Adam Ball Work Phone: [facility] 02-04-2024 12:40-0400 Systolic blood pressure 119 mm[Hg] DO Adam Ball Work Phone: [facility] 02-04-2024 05:54-0400 Body weight 78.3 kg DO Adam Ball Work Phone: [facility] 02-02-2024 09:43-0400 Body height 182.88 cm DO Adam Ball Work Phone: [facility] 10-13-2023 13:35-0400 Body height 182.9 cm Steven Alvares MD Work Phone: [facility] 10-13-2023 13:35-0400 Body mass index (BMI) [Ratio] 23.06 kg/m2 Steven Alvares MD Work Phone: [facility] 10-13-2023 13:35-0400 Body weight 77.11 kg Steven Alvares MD Work Phone: [facility] 10-13-2023 13:35-0400 Diastolic blood pressure 78 mm[Hg] Steven Alvares MD Work Phone: [facility] 10-13-2023 13:35-0400 Heart rate 72 /min Steven Alvares MD Work Phone: [facility] 10-13-2023 13:35-0400 Systolic blood pressure 138 mm[Hg] Steven Alvares MD Work Phone: [facility] 08-14-2023 15:21-0400 Blood Pressure Location [facility] 08-14-2023 15:21-0400 Diastolic blood pressure 74 mm[Hg] Clinton NORMAN [facility] 08-14-2023 15:21-0400 Heart rate 80 /min Clinton NORMAN [facility] 08-14-2023 15:21-0400 Respiratory rate 16 /min Clinton NORMAN [facility] 08-14-2023 15:21-0400 Systolic blood pressure 132 mm[Hg] [facility] 03-01-2023 14:00-0400 Body height 182.88 cm Adam Ball Other [facility] [employer] Other 03-01-2023 14:00-0400 Body mass index (BMI) [Ratio] 23.22 kg/m2 Adam Ball Other [facility] [employer] Other 03-01-2023 14:00-0400 Body weight 77.66 kg Adam Ball Other [facility] [employer] Other 03-01-2023 14:00-0400 Diastolic blood pressure 80 mm[Hg] Adam Ball Other [facility] [employer] Other 03-01-2023 14:00-0400 Respiratory rate 20 /min Adam Ball Other [facility] [employer] Other 03-01-2023 14:00-0400 Systolic blood pressure 145 mm[Hg] Adam Ball Other [facility] [employer] Other 11-28-2022 13:10-0400 Blood Pressure Location [facility] NORMAN [facility] 11-28-2022 13:10-0400 Diastolic blood pressure 80 mm[Hg] Clinton NORMAN [facility] 11-28-2022 13:10-0400 Heart rate 68 /min Clinton NORMAN [facility] 11-28-2022 13:10-0400 Respiratory rate 16 /min Clinton NORMAN [facility] 11-28-2022 13:10-0400 Systolic blood pressure 130 mm[Hg] Clinton NORMAN [facility] 09-01-2022 12:30-0400 Body height 182.88 cm Adam Ball Other [facility] [employer] Other 09-01-2022 12:30-0400 Body mass index (BMI) [Ratio] 22.97 kg/m2 Adam Ball Other [facility] [employer] Other 09-01-2022 12:30-0400 Body weight 76.84 kg Adam Ball Other [facility] [employer] Other 09-01-2022 12:30-0400 Diastolic blood pressure 87 mm[Hg] Adam Ball Other [employer] Other 09-01-2022 12:30-0400 Respiratory rate 20 /min Adam Ball Other [facility] [employer] Other 09-01-2022 12:30-0400 Systolic blood pressure 147 mm[Hg] Adam Ball Other [facility] [employer] Other 02-14-2022 12:08-0400 Blood Pressure Location Clintonsneha NORMAN [facility] 02-14-2022 12:08-0400 Diastolic blood pressure 89 mm[Hg] Clintonsneha NORMAN [facility] 02-14-2022 12:08-0400 Heart rate 80 /min Clintonsneha NORMAN [facility] 02-14-2022 12:08-0400 Respiratory rate 16 /min Clintonsneha NORMAN [facility] 02-14-2022 12:08-0400 Systolic blood pressure 139 mm[Hg] Clintonsneha NORMAN [facility] 10-26-2021 11:23-0400 Diastolic blood pressure 95 mm[Hg] DO Adam Ball Work Phone: [facility] 10-26-2021 11:23-0400 Heart rate 62 /min DO Adam Ball Work Phone: [facility] 10-26-2021 11:23-0400 Respiratory rate 20 /min DO Adam Ball Work Phone: [facility] 10-26-2021 11:23-0400 SaO2% (BldA) [Mass fraction] 94 % DO Adam Ball Work Phone: [facility] 10-26-2021 11:23-0400 Systolic blood pressure 134 mm[Hg] DO Adam Ball Work Phone: [facility] 10-26-2021 09:24-0400 Body height 182.88 cm DO Adam Ball Work Phone: [facility] 10-26-2021 09:24-0400 Body mass index (BMI) [Ratio] 23.7 kg/m2 DO Adam Ball Work Phone: [facility] 10-26-2021 09:24-0400 Body temperature 97.5 [degF] DO Adam Ball Work Phone: [facility] 10-26-2021 09:24-0400 Body weight 79.37 kg DO Adam Ball Work Phone: [facility] 2021 12:15-0400 Body height 182.88 cm Nick Muniz Other [facility] [employer] Other 2021 12:15-0400 Body mass index (BMI) [Ratio] 24.27 kg/m2 Nick Muniz Other [employer] Other 2021 12:15-0400 Body temperature 97.2 [degF] Nick Muniz Other [employer] Other 2021 12:15-0400 Body weight 81.19 kg Nick Muniz Other [employer] Other 2021 12:15-0400 Diastolic blood pressure 88 mm[Hg] Nick Muniz Other [employer] Other 2021 12:15-0400 Respiratory rate 20 /min Nick Modino Other [employer] Other 2021 12:15-0400 SaO2% (BldA) [Mass fraction] 99 % Nick Muniz Other [employer] Other 2021 12:15-0400 Systolic blood pressure 150 mm[Hg] Nick Muniz Other [facility] [employer] Other 08-09-2021 11:58-0400 Blood Pressure Location [facility] NORMAN [facility] 08-09-2021 11:58-0400 Diastolic blood pressure 83 mm[Hg] Clinton NORMAN [facility] 08-09-2021 11:58-0400 Heart rate 64 /min Clinton NORMAN [facility] 08-09-2021 11:58-0400 Respiratory rate 16 /min Clinton NORMAN [facility] 08-09-2021 11:58-0400 Systolic blood pressure 137 mm[Hg] Clinton NORMAN [facility] 04-29-2021 14:51-0500 Body height 182.88 cm Adam Bird [employer] Work Phone: [facility] [employer] 250 DO Work Phone: 04-29-2021 14:51-0500 Body mass index (BMI) [Ratio] 23.87 kg/m2 Adam Bird [employer] Work Phone: [facility] [place] 250 DO Work Phone: 04-29-2021 14:51-0500 Body surface area Derived from formula 2.02 m2 Adam Del Valle Work Phone: [facility] [employer] DO Work Phone: 04-29-2021 14:51-0500 Body weight 79.83 kg Adam Del Valle Work Phone: [facility] 250 DO Work Phone: 04-29-2021 14:51-0500 Diastolic blood pressure 88 mm[Hg] Adam Del Valle Work Phone: [facility] 250 DO Work Phone: 04-29-2021 14:51-0500 Heart rate 77 /min Adam Del Valle Work Phone: [facility] 250 DO Work Phone: 04-29-2021 14:51-0500 Systolic blood pressure 138 mm[Hg] Adam Del Valle Work Phone: [facility] 250 DO Work Phone: Encounters Encounter Date Encounter Type Care Provider Facility Start: 01-17-2025 End: 01-17-2025 Professional / ancillary services management Maya Fuentes [facility] Comment on above: High risk medication use Start: 01-15-2025 End: 01-15-2025 ambulatory [facility] Ambulatory Start: 01-15-2025 End: 01-15-2025 Office outpatient visit 25 minutes [facility] 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 Work 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: [facility] Comment on above: High risk medication use (Primary Dx); 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 (Multi); senior living (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; Takotsubo syndrome; BMI < 18.5; Cardiac sarcoidosis; Chewing tobacco use; Other cardiomyopathy; LV dysfunction Start: 01-05-2025 End: 01-09-2025 Evaluation and management of inpatient Elsie Leonard MD -[facility] Work Phone: Start: 01-02-2025 End: 01-02-2025 Patient encounter procedure Josue Beavers MD -Pre-Surgical Testing Work Phone: Start: 01-02-2025 End: 01-02-2025 ambulatory Adam Del Valle DO Work Phone: [facility] Work Phone: Start: 11-19-2024 End: 11-19-2024 ambulatory Adam Del Valle DO Work Phone: [facility] Work Phone: Start: 11-19-2024 End: 11-19-2024 Patient encounter procedure Adam Del Valle DO -[facility] Work Phone: Start: 11-12-2024 Non-patient / Non-visit Juliette Fonseca 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 -[facility] Work Phone: Start: 11-11-2024 End: 11-12-2024 Evaluation and management of inpatient Silvano Reed DO -[facility] Work Phone: Start: 10-31-2024 End: 10-31-2024 ambulatory [facility] Ambulatory Start: 10-31-2024 End: 10-31-2024 Office outpatient visit 25 minutes Shannon Gonzalez MD Work Phone: [facility] Comment on above: Other fatigue (Prima ry Dx); Non-ischemic cardiomyopathy (Multi); 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 (Multi); High risk medication use; Pulmonary sarcoidosis (Multi); BMI < 18.5; Current smoker Start: 09-02-2024 End: 09-02-2024 ambulatory Adam Del Valle DO Work Phone: [facility] Work Phone: Start: 09-02-2024 End: 09-02-2024 Patient encounter procedure Adam Del Valle DO Work Phone: [facility] Work Phone: Start: 08-09-2024 End: 08-09-2024 Subsequent hospital visit by physician Serenity Greene Echo/Vasc Room 2 [facility] Comment on above: Non-ischemic cardiom yopathy (Multi); Cardiomyopathy, unspecified Start: 08-09-2024 End: 08-09-2024 ambulatory [facility] Start: 08-05-2024 End: 08-06-2024 ambulatory Clinton NORMAN Facility:[facility] Start: 08-05-2024 End: 08-06-2024 Lab Drop off Clinton NORMAN [facility] Start: 08-05-2024 End: 08-05-2024 ambulatory Clinton NORMAN Facility: [place] Start: 08-01-2024 Non-patient / Non-visit Benjam in [employer] DO Work Phone: [facility] Work Phone: Start: 07-25-2024 End: 07-25-2024 Professional / ancillary services management Harriet Gibson LPN [facility] Comment on above: Atrial fibrillation, unspecified type (Multi) Start: 07-25-2024 End: 07-25-2024 ambulatory [facility] Amb[facility] Start: 07-23-2024 End: 07-24-2024 ambulatory Edward Mackmartaelise DO Work Phone: [facility] Comment on above: Chronic systolic con gestive heart failure (CMS-HCC) (Primary Dx); Chronic atrial fibrillation (CMS-HCC); Sarcoidosis of lung (CMS-HCC); Hypo-osmolality and hyponatremia; Benign prostatic hyperplasia with lower urinary tract symptoms, symptom details unspecified Start: 07-16-2024 End: 07-21-2024 ambulatory Edward Orr DO Work Phone: [facility] Comment on above: Chronic respiratory failure with hypoxia (CMS-HCC) (Primary Dx); Closed wedge compression fracture of T7 vertebra with routine healing, subsequent encounter; Closed wedge compression fracture of T8 vertebra with routine healing, subsequent encounter; Sarcoid myocarditis; Hypotension, unspecified hypotension type; Benign prostatic hyperplasia with lower urinary tract symptoms, symptom details unspecified; Hypo-osmolality and hyponatremia; Hypokalemia; Sarcoidosis of lung (CMS-HCC); Chronic systolic congestive heart failure (CMS-HCC); Muscle weakness (generalized); Alcohol dependence, 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CMS-HCC) Start: 07-15-2024 End: 07-15-2024 ambulatory Adam Del Valle DO Work Phone: [facility] Work Phone: Start: 07-15-2024 End: 07-15-2024 Patient encounter procedure Adam Del Valle DO Work Phone: [facility] Work Phone: Start: 07-10-2024 End: 07-21-2024 ambulatory Edward Orr DO Work Phone: [facility] Comment on above: Chronic respiratory failure with hypoxia (CMS-HCC) (Primary Dx); Closed wedge compression fracture of T8 vertebra with routine healing, subsequent encounter; Closed wedge compression fracture of T7 vertebra with routine healing, subsequent encounter; Sarcoidosis of lung (CMS-HCC); Chronic systolic congestive heart failure (CMS-HCC); Sarcoid myocarditis; Gross hematuria; Hypo-osmolality and hyponatremia; Hypokalemia; Alcohol dependence, 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CMS-HCC); Benign prostatic hyperplasia with lower urinary tract symptoms, symptom details unspecified; Other spondylosis, lumbar region; Muscle weakness (generalized); Encephalopathy, unspecified type; Occlusion and stenosis of right carotid artery; Gastroesophageal reflux disease without esophagitis; Chronic atrial fibrillation (CMS-HCC) Start: 07-06-2024 Non-patient / Non-visit Shira Del Valle DO Work Phone: [facility] Work Phone: Start: 07-03-2024 End: 07-09-2024 Evaluation and management of inpatient Adam Del Valle DO Work Phone: [facility] Work Phone: Start: 06-12-2024 End: 06-12-2024 Subsequent hospital visit by physician Serenity Meyers [place] [facility] Comment on above: Fatigue, unspecified type; Non-ischemic cardiomyopathy (Multi); Diastolic dysfunction; LV (left ventricular) mural thrombus; 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 (Multi) Start: 06-12-2024 End: 06-12-2024 ambulatory [facility] Start: 06-03-2024 End: 06-03-2024 ambulatory Adam Del Valle DO Work Phone: [facility] Work Phone: Start: 06-03-2024 End: 06-03-2024 Patient encounter procedure Adam Del Valle DO Work Phone: [facility] Work Phone: Start: 05-24-2024 End: 05-24-2024 Office outpatient visit 25 minutes Shannon Gonzalez MD Work Phone: [facility] Comment on above: Hypotension due to d rugs (Primary Dx); Non-ischemic cardiomyopathy (Multi); Diastolic dysfunction; Fatigue, unspecified type; LV (left ventricular) mural thrombus; 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 (Multi); High risk medication use; Pulmonary sarcoidosis (Multi); BMI 21.0-21.9, adult; Carotid stenosis, right Start: 05-24-2024 End: 05-24-2024 ambulatory [facility] Amb[facility] Start: 05-22-2024 Non-patient / Non-visit Shira Del Valle DO Work Phone: [facility] Work Phone: Start: 05-01-2024 End: 05-01-2024 Patient encounter procedure Adam Del Valle DO Work Phone: [facility] Work Phone: Start: 04-09-2024 Non-patient / Non-visit Shira in Ivon KING Work Phone: [facility] Work Phone: Start: 03-27-2024 End: 03-27-2024 Office outpatient visit 25 minutes Shannon Gonzalez MD Work Phone: [facility] Comment on above: Persistent atrial fi brillation (Multi) (Primary Dx); Non-ischemic cardiomyopathy (Multi); Chronic obstructive pulmonary disease, unspecified COPD type (Multi); BMI 20.0-20.9, adult; High risk medication use; Pulmonary sarcoidosis (Multi); Carotid artery stenosis without cerebral infarction, right; Dyslipidemia Start: 03-27-2024 End: 03-27-2024 ambulatory ORTE[facility] Start: 03-26-2024 End: 03-26-2024 ambulatory Adam Ball DO Work Phone: [facility] Work Phone: Start: 03-26-2024 End: 03-26-2024 Patient encounter procedure Adam Ball DO Work Phone: [facility] Work Phone: Start: 03-25-2024 End: 03-25-2024 ambulatory Adam Ball DO Work Phone: [facility] Work Phone: Start: 03-25-2024 End: 03-25-2024 Patient encounter procedure Adam Ball DO Work Phone: [facility] Work Phone: Start: 03-21-2024 Non-patient / Non-visit Benjam in Ball DO Work Phone: [facility] Work Phone: Start: 03-16-2024 Non-patient / Non-visit DO Frandy perla Ball Work Phone: [facility] Work Phone: Start: 03-15-2024 Non-patient / Non-visit DO Frandy perla Ball Work Phone: [facility] Work Phone: Start: 03-14-2024 Non-patient / Non-visit DO Frandy minda Ball Work Phone: [facility] Work Phone: Start: 03-13-2024 Non-patient / Non-visit Benjam in Ball DO Work Phone: [facility] Work Phone: Start: 03-13-2024 End: 03-20-2024 Evaluation and management of inpatient DO Adam Ball Work Phone: [facility] [place] [facility] Work Phone: Start: 03-13-2024 Non-patient / Non-visit DO Frandy minda Ball Work Phone: [facility] Work Phone: Start: 03-08-2024 End: 03-08-2024 ambulatory DO Adam Ball Work Phone: [facility] Work Phone: Start: 03-08-2024 End: 03-08-2024 Patient encounter procedure DO Adam Ball Work Phone: [facility] Work Phone: Start: 03-07-2024 Non-patient / Non-visit DO Frandy minda Ball Work Phone: [facility] Work Phone: Start: 03-06-2024 Non-patient / Non-visit Benjam in [employer] DO Work Phone: [facility] Work Phone: Start: 03-06-2024 Non-patient / Non-visit DO Frandy minad Ball Work Phone: [facility] Work Phone: Start: 03-01-2024 Non-patient / Non-visit DO Frandy minda Ball Work Phone: [facility] Work Phone: Start: 02-29-2024 Non-patient / Non-visit DO Frandy minda Ball Work Phone: [facility] Work Phone: Start: 02-28-2024 End: 03-01-2024 Evaluation and management of inpatient DO Adam Ball Work Phone: [facility] Work Phone: Start: 02-20-2024 End: 02-20-2024 Professional / ancillary services management Olivia Toro LPN [facility] Comment on above: Arrived Start: 02-20-2024 End: 02-20-2024 ambulatory [facility] Amb[facility] Start: 02-14-2024 End: 02-14-2024 ambulatory DO Adam Del Valle Work Phone: [facility] Work Phone: Start: 02-14-2024 End: 02-14-2024 Patient encounter procedure DO Adam Ball Work Phone: [facility] Work Phone: Start: 02-12-2024 Non-patient / Non-visit DO Frandy perla Ball Work Phone: [facility] Work Phone: Start: 02-05-2024 Non-patient / Non-visit DO Frandy minda Ball Work Phone: [facility] Work Phone: Start: 02-02-2024 End: 02-04-2024 Evaluation and management of inpatient DO Adam Ball Work Phone: [facility] [place] [facility] Work Phone: Start: 02-02-2024 Non-patient / Non-visit DO Frandy minda Ball Work Phone: [facility] Work Phone: Start: 02-01-2024 Non-patient / Non-visit DO Frandy minda Ball Work Phone: [facility] Work Phone: Start: 10-13-2023 End: 10-13-2023 Office outpatient visit 25 minutes Steven Alvares MD Work Phone: [facility] Comment on above: Non-ischemic cardiom yopathy (Multi) (Primary Dx); LV (left ventricular) mural thrombus; Diastolic dysfunction; Pulmonary sarcoidosis (Multi); Imbalance; BMI 23.0-23.9, adult Start: 08-14-2023 End: 08-14-2023 ambulatory Clintonsneha NORMAN Facility:[facility] Start: 08-14-2023 End: 08-14-2023 Patient encounter procedure Clinton NORMAN [facility] Start: 05-04-2023 End: 05-04-2023 ambulatory Adam Del Valle Other [employer] Other Start: 05-04-2023 Telephone encounter Adam Del Valle [facility] Start: 03-01-2023 End: 03-01-2023 ambulatory Adam Del Valle Other [employer] Other Start: 03-01-2023 Office outpatient vi sit 25 minutes Adam Del Valle [facility] Start: 12-19-2022 Rx Renewal Adam E Bal l Work Phone: [facility] [address] DO Work Phone: Start: 12-04-2022 End: 12-04-2022 ambulatory Nick Muniz Other [employer] Other Start: 12-04-2022 Telephone encounter Nick vance [facility] Start: 11-28-2022 End: 11-28-2022 Patient encounter procedure Clinton NORMAN [facility] Start: 09-27-2022 End: 09-27-2022 ambulatory Adam Del Valle Other [employer] Other Start: 09-27-2022 Telephone encounter Adam Del Valle [facility] Start: 09-16-2022 Rx Renewal Adam E Bal l Work Phone: [facility] [address] DO Work Phone: Start: 09-08-2022 Encounter for genera l adult medical examination without abnormal findings DR ADAM DEL VALLE [facility] Start: 09-02-2022 End: 09-03-[address] ADAM DEL VALLE Facility:[facility] Start: 09-02-2022 End: 09-03-2022 Encounter for general adult medical examination without abnormal findings DR ADAM DEL VALLE Facility:[facility] Start: 09-01-2022 End: 09-01-2022 ambulatory Adam Del Valle Other [employer] Other Start: 09-01-2022 Patient encounter procedure Adam Del Valle [facility] Start: 08-26-2022 Rx Renewal Adam E Mack mandy Work Phone: [facility] [address] DO Work Phone: Start: 08-16-2022 End: 08-16-2022 ambulatory Nick Muniz Other [email or web address] Other Start: 08-16-2022 Telephone encounter Nick vance [facility] Start: 05-16-2022 End: 05-16-[address] GREGG QUIROS Facility:[facility] Start: 04-22-2022 Adult health examination Nick Muniz Other [email or web address] [email or web address] Other Start: 04-19-2022 End: 04-19-[address] JOSE ALFARO . Facility:[facility] Start: 02-14-2022 End: 02-14-2022 Patient encounter procedure Clinton NORMAN [facility] Start: 02-07-2022 End: 02-08-[address] ADAM DEL VALLE Facility:[facility] Start: 12-13-2021 End: 12-14-[address] ADAM DEL VALLE Facility:[facility] Start: 11-30-2021 End: 12-01-[address] ADAM DEL VALLE Facility:[facility] Start: 11-16-2021 End: 11-17-2021 ambulatory MATTHEWMARÍA MENDEZ Facility:[facility] Start: 11-15-2021 End: 11-15-[address] JOSE ALFARO . Facility:[facility] Start: 10-26-2021 End: 10-26-2021 Admission to same day surgery center DO Adam Del Valle Work Phone: [facility] Start: 10-22-2021 End: 10-22-2021 Patient encounter procedure DO Adam Del Valle Work Phone: [facility]-Pre-Surgical Testing Start: 10-07-2021 Rx Renewal Adam galvan Work Phone: [facility] [address] DO Work Phone: Start: 10-07-2021 End: 10-07-2021 ambulatory Gregg Hilliard Other [employer] Other Start: 10-07-2021 Telephone encounter Gregg Hilliard [facility] Start: 10-05-2021 End: 10-05-2021 ambulatory Nick Muniz Other [employer] Other Start: 10-05-2021 Telephone encounter Nick vance [facility] Start: 2021 End: 2021 ambulatory Nick Muniz Other [email or web address] Other Start: 2021 Office outpatient vi sit 15 minutes Christbrendan Muniz [facility] Start: 2021 AUDIT Adam galvan Work Phone: [facility] [facility] DO Work Phone: Start: 08-09-2021 End: 08-09-2021 Patient encounter procedure Clinton NORMAN [facility] Start: 04-29-2021 Office outpatient vi sit 25 minutes Adam Del Valle Work Phone: [facility] [address] DO Work Phone: Evaluation finding Adam Bird Ba ll Work Phone: [facility] [facility] DO Work Phone: Procedures Date Procedure Procedure Detail Performing Clinician Start: 01-05-2025 CT angiography of thorax Adam Rodriguez O Work Phone: Start: 01-04-2025 Plain chest X-ray Adam Del Valle DO Work Phone: Start: 11-11-2024 Urine culture Adam Del Valle DO Work Phone: Start: 11-10-2024 Plain chest X-ray Adam Del Valle DO Work Phone: Start: 11-10-2024 Urine culture Adam Del Valle DO Work Phone: Start: 10-31-2024 Ecg routine ecg w/least 12 lds w/i&r Shannon Gonzalez MD Work Phone: Start: 08-09-2024 Echo tthrc r-t 2d w/wom-mode compl spec&colr d Shannon Gonzalez MD Work Phone: Start: 07-04-2024 Urine culture Adam Del Valle DO Work Phone: Start: 07-03-2024 CT angiography of thorax Adam Segal Work Phone: Start: 07-03-2024 Duplex scan of lower limb veins Adam Del Valle DO Work Phone: Start: 07-03-2024 Computed tomography of abdomen and pelvis with contrast Adam Del Valle DO Work Phone: Start: 07-03-2024 CT of head without contrast Adam galvan DO Work Phone: Start: 07-03-2024 Plain chest X-ray Adam Del Valle DO Work Phone: Start: 07-03-2024 Viral nucleic acid assay Adam Rodriguez O Work Phone: Start: 06-12-2024 Cv strs tst xers&/or rx cont ecg trcg only Shannon Gonzalez MD Work Phone: Start: 05-24-2024 Ecg routine ecg w/least 12 lds w/i&r Shannon Gonzalez MD Work Phone: Start: 03-27-2024 Ecg routine ecg w/least 12 lds w/i&r Shannon Gonzalez MD Work Phone: Start: 03-14-2024 Bacteria identified in Urine by Culture DO [employer] Work Phone: Start: 03-14-2024 Urine culture Adam [employer] DO Work Phone: Start: 03-14-2024 Doppler ultrasonography of bilateral carotid arteries DO [employer] Work Phone: Start: 03-14-2024 MRI of head DO [employer] Work Phone: Start: 03-13-2024 CT of abdomen and pelvis without contrast DO [employer] Work Phone: Start: 02-29-2024 Plain chest X-ray DO Adam [employer] Work Phone: Start: 02-28-2024 Plain chest X-ray DO [employer] Work Phone: Start: 09-02-[address] ADAM DEL VALLE Comment on above: Performed By: #### URIC, BMP, TSH #### [facility] [address] [place] [address] Dr. Fabrizio Pascual Start: 02-07-[address] ADAM DEL VALLE Comment on above: Performed By: #### BNP, BMP, HSTROPN ### # [facility] [address] [place], [place] [address] Dr. Fabrizio Pascual Start: 10-26-2021 Esophagogastroduodenoscopy DO Adam merino Work Phone: Start: 09-22-2020 Urodynamic studies Clinton NORMAN Start: 08-24-2020 Cystoscopy Clinton NORMAN Start: 06-28-2017 Screening for osteoporosis Nick Muniz Other Start: 06-24-2016 Screening for malignant neoplasm of prostate Rustybrendan Flavio Other Arthroscopy of knee Adam Del Valle Work Phone: Colonoscopy Clinton NORMAN Hemorrhoidectomy Clinton HAYES Total colonoscopy Adam Del Valle Work Phone: Plan of Treatment Date Care Activity Detail Author Start: 08-12-2025 Pneumococcal vaccination Pneumococcal Vaccine (3 of 3 - PCV20 or PCV21) [facility] Start: 08-09-2025 Echocardiography Echocardiogram [facility] Start: 06-11-2025 End: 06-11-2025 Patient encounter procedure 06/11/2025 11:00 AM EST Office Visit [facility] [address] [place] [address] Shannon Gonzalez MD [address] [place] [address] [facility] Start: 02-28-2025 Echocardiography Echocardiogram [facility] Start: 02-18-2025 End: 02-18-2025 Patient encounter procedure 02/18/2025 10:45 AM EDT Appointment [facility] [address] [place] [address] [facility] Start: 02-14-2025 End: 01-15-2027 US Heart Transthoracic Transthoracic Echo Limited Echocardiography Routine Takotsubo syndrome Expected: 02/14/2025 (Approximate), Expires: 01/15/2027 [facility] Service Area Work Phone: Comment on above: Expected: 02/14/2025 (Approximate), Expi res: 01/15/2027 Start: 02-10-2025 ambulatory Ambulatory Facility:[facility] Start: 02-03-2025 ambulatory Ambulatory Facility:[facility] Start: 02-01-2025 Echocardiography Echocardiogram [facility] Start: 01-28-2025 End: 01-28-2025 Patient encounter procedure 01/28/2025 11:00 AM EDT Appointment [facility] [address] [facility] [address] [place] [address] [facility] Start: 01-28-2025 Subsequent hospital visit by physician 01/28/2025 11:00 AM EDT Hospital Encounter [facility] [address] [facility] [address] [place] [address] [facility] Start: 01-21-2025 End: 01-21-2025 Professional / ancillary services management 01/21/2025 10:00 AM EDT [facility] [address] [place] [address] [facility] Start: 01-17-2025 End: 01-16-2026 ECG 12 Lead [facility] Work Phone: Comment on above: Expected: 01/17/2025 (Approximate), Expi res: 01/16/2026 Start: 01-17-2025 End: 01-17-2025 Professional / ancillary services management 01/17/2025 11:00 AM EDT Ancillary [facility] [address] [place] [address] [facility] Start: 01-16-2025 End: 01-16-2026 MR Heart WO and W contrast IV MR cardiac morphology and function w and wo IV contrast Imaging Routine Cardiac sarcoidosis Expected: 01/16/2025 (Approximate), Expires: 01/16/2026 [facility] Work Phone: Comment on above: Expected: 01/16/2025 (Approximate), Expi res: 01/16/2026 Start: 01-15-2025 End: 01-15-2026 Basic metabolic 2000 panel - Serum or Plasma Basic Metabolic Panel Lab Routine 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 (Multi) Takotsubo syndrome Expected: 01/15/2025 (Approximate), Expires: 01/15/2026 [facility] Work Phone: Comment on above: Expected: 01/15/2025 (Approximate), Expi res: 01/15/2026 Start: 01-15-2025 End: 01-15-2026 CBC panel - Blood by Automated count CBC Lab Routine 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 (Multi) 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 Takotsubo syndrome Expected: 01/15/2025 (Approximate), Expires: 01/15/2026 [facility] Work Phone: Comment on above: Expected: 01/15/2025 (Approximate), Expi res: 01/15/2026 Start: 01-15-2025 End: 01-15-2027 Holter monitor study Holter Or Event Quality Assurance Coach Cardiac Services Routine 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 (Multi) Takotsubo syndrome Cardiac sarcoidosis Expected: 01/15/2025 (Approximate), Expires: 01/15/2027 [facility] Work Phone: Comment on above: Expected: 01/15/2025 (Approximate), Expi res: 01/15/2027 Start: 01-15-2025 End: 01-15-2026 Magnesium [Mass/volume] in Serum or Plasma Magnesium Lab Routine 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 (Multi) senior living (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 Takotsubo syndrome Expected: 01/15/2025 (Approximate), Expires: 01/15/2026 [facility] Work Phone: Comment on above: Expected: 01/15/2025 (Approximate), Expi res: 01/15/2026 Start: 01-15-2025 End: 01-15-2026 Natriuretic peptide B [Mass/volume] in Blood B-Type Natriuretic Peptide Lab Routine 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 (Multi) senior living (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 Takotsubo syndrome Other cardiomyopathy Expected: 01/15/2025 (Approximate), Expires: 01/15/2026 [facility] Work Phone: Comment on above: Expected: 01/15/2025 (Approximate), Expi res: 01/15/2026 Start: 01-13-2025 COVID-19 Vaccine ( season) COVID-19 Vaccine ( season) [facility] Start: 01-13-2025 Influenza vaccination Influenza Vaccine (#1) [facility] Start: 01-09-2025 [facility] Start: 01-05-2025 End: 01-05-2025 [facility] Start: 01-05-2025 Microbial culture of sputum [facility] Start: 01-05-2025 Physical therapy procedure [facility] Start: 01-05-2025 Referral to occupational therapist [facility] Start: 01-05-2025 Referral to reordering clerk [facility] Start: 01-05-2025 Hospital admission [facility] Start: 01-05-2025 CT angiography of thorax CT angio chest PE protocol [facility] Start: 01-05-2025 CT Chest [facility] Start: 01-04-2025 Plain chest X-ray XR chest 1V portable [facility] Start: 01-04-2025 XR Chest Single view [facility] Start: 11-14-2024 [facility] Start: 11-13-2024 [facility] Start: 11-12-2024 End: 11-12-2024 [facility] Start: 11-11-2024 Hospital admission [facility] Start: 11-11-2024 Microbial culture of sputum [facility] Start: 11-11-2024 Physical therapy procedure [facility] Start: 11-11-2024 Referral to occupational therapist [facility] Start: 11-11-2024 [facility] Start: 11-10-2024 Plain chest X-ray XR chest 1V portable [facility] Start: 11-10-2024 XR Chest Single view [facility] Start: 11-10-2024 End: 11-10-2024 Urine culture [facility] Start: 11-10-2024 Bacteria identified in Urine by Culture Urine Culture [facility] Start: 10-31-2024 End: 10-31-2025 Basic metabolic 2000 panel - Serum or Plasma Basic Metabolic Panel Lab Routine Non-ischemic cardiomyopathy (Multi) 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 (Multi) Expected: 10/31/2024 (Approximate), Expires: 10/31/2025 [facility] Work Phone: Comment on above: Expected: 10/31/2024 (Approximate), Expi res: 10/31/2025 Start: 10-31-2024 End: 10-31-2025 CBC panel - Blood by Automated count CBC Lab Routine Non-ischemic cardiomyopathy (Multi) 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 (Multi) Expected: 10/31/2024 (Approximate), Expires: 10/31/2025 [facility] Service Area Work Phone: Comment on above: Expected: 10/31/2024 (Approximate), Expi res: 10/31/2025 Start: 10-18-2024 End: 10-18-2024 Patient encounter procedure 10/18/2024 1:30 PM EDT Office Visit [facility] [address] [place] [address] Shannon Gonzalez MD [address] [place] [address] [facility] Start: 09-13-2024 End: 09-13-2024 Patient encounter procedure 09/13/2024 2:10 PM EDT Office Visit [facility] [address] [place] [address] Shannon Gonzalez MD [address] [place] [address] [facility] Start: 09-11-2024 Medicare Annual Wellness Visit Medicare Annual Wellness Visit (AWV) [facility] Start: 08-09-2024 End: 08-09-2024 Patient encounter procedure 08/09/2024 12:30 PM EDT Appointment [facility] [address] [place] [address] [facility] Start: 07-25-2024 End: 03-27-2026 US Heart Transthoracic Transthoracic Echo Complete Echocardiography Routine Non-ischemic cardiomyopathy (Multi) Expected: 07/25/2024 (Approximate), Expires: 03/27/2026 [facility] Service Area Work Phone: Comment on above: Expected: 07/25/2024 (Approximate), Expi res: 03/27/2026 Start: 07-25-2024 End: 07-25-2024 Patient encounter procedure 07/25/2024 12:30 PM EDT Appointment Darin Church[address] [id number] [facility] Start: 07-09-2024 [facility] Start: 07-04-2024 Administration of prophylactic treatment [facility] Start: 07-04-2024 Patient referral to dietitian [facility] Start: 07-04-2024 Referral to reordering clerk [facility] Start: 07-04-2024 End: 07-04-2024 [facility] Start: 07-03-2024 Physical therapy procedure [facility] Start: 07-03-2024 Referral to occupational therapist [facility] Start: 07-03-2024 [facility] Start: 07-03-2024 Hospital admission [facility] Start: 07-03-2024 Duplex scan of lower limb veins US venous duplex LE BI [facility] Start: 07-03-2024 US Lower extremity vein - bilateral [facility] Start: 07-03-2024 [facility] Start: 07-03-2024 [facility] Start: 07-03-2024 Drainage of Bladder with Drainage Device, Via Natural or Artificial Opening Drainage of Bladder with Drainage Device, Via Natural or Artificial Opening [facility] Start: 06-12-2024 End: 06-12-2024 Patient encounter procedure 06/12/2024 2:15 PM EST [facility] [address] [id number] Darin [facility] Start: 06-12-2024 End: 06-12-2024 Patient encounter procedure Darin [facility] Start: 05-24-2024 End: 05-24-2026 NM Heart Perfusion W stress and W radionuclide IV Nuclear Stress Test Cardiac Nuclear Medicine Routine Fatigue, unspecified type Non-ischemic cardiomyopathy (Multi) Diastolic dysfunction LV (left ventricular) mural thrombus 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 (Multi) Expected: 05/24/2024 (Approximate), Expires: 05/24/2026 [facility] Service Area Work Phone: Comment on above: Expected: 05/24/2024 (Approximate), Expi res: 05/24/2026 Start: 04-15-2024 End: 04-15-2024 Patient encounter procedure 04/15/2024 1:20 PM EST Office Visit [facility] [address] [place] [address] Shannon Gonzalez MD [address] [facility] [address] [place] [address] [facility] Start: 03-27-2024 End: 03-27-2025 Basic metabolic 2000 panel - Serum or Plasma Basic Metabolic Panel Lab Routine Non-ischemic cardiomyopathy (Multi) Expected: 03/27/2024 (Approximate), Expires: 03/27/2025 [facility] Work Phone: Comment on above: Expected: 03/27/2024 (Approximate), Expi res: 03/27/2025 Start: 03-20-2024 [facility] Start: 03-14-2024 Referral to rehabilitation physician [facility] Start: 03-13-2024 Referral to neurologist [facility] Start: 03-13-2024 Referral to vascular surgeon [facility] Start: 03-13-2024 Referral to Floor Specialist [facility] Start: 03-13-2024 Sleep disorder assessment [facility] Start: 03-13-2024 Hospital admission [facility] Start: 03-01-2024 [facility] Start: 02-29-2024 End: 02-29-2024 Patient encounter procedure 02/29/2024 11:40 AM EDT Office Visit [facility] [address] [place] [address] Shannon Gonzalez MD [address] [facility] [address] [place] [address] [facility] Start: 02-28-2024 Hospital admission [facility] Start: 02-28-2024 Plain chest X-ray XR chest 1V portable [facility] Start: 02-28-2024 Buddhism of Cardiac Rhythm, Single Buddhism of Cardiac Rhythm, Single [facility] Start: 02-04-2024 [facility] Start: 02-02-2024 [facility] Start: 02-02-2024 Hospital admission [facility] Start: 02-02-2024 Referral to reordering clerk [facility] Start: 01-14-2024 COVID-19 Vaccine ( season) COVID-19 Vaccine ( season) [facility] Start: 01-14-2024 COVID-19 Vaccine ( season) COVID-19 Vaccine ( season) [facility] Start: 01-14-2024 COVID-19 Vaccine ( season) COVID-19 Vaccine ( season) [facility] Start: 01-14-2024 COVID-19 Vaccine ( season) COVID-19 Vaccine ( season) [facility] Start: 01-14-2024 Influenza vaccination [facility] Start: 09-27-2023 FUV, Provider: Steven Alvares, Status: Pen, Time: 1:40 PM FUV, Provider: Steven Alvares, Status: Pen, Time: 1:40 PM -[facility] [address] DO Work Phone: Start: 01-13-2023 COVID-19 Vaccine ( season) COVID-19 Vaccine ( season) [facility] Start: 10-03-2022 FUV, Provider: Steven Alvares, Status: Pen, Time: 11:20 AM FUV, Provider: Steven Alvares, Status: Pen, Time: 11:20 AM [facility] [address] DO Work Phone: Start: 04-27-2022 FUV, Provider: Steven Alvares, Status: Pen, Time: 1:40 PM FUV, Provider: Steven Alvares, Status: Pen, Time: 1:40 PM [facility] [address] DO Work Phone: Start: 08-12-2021 Pneumococcal Vaccine: 65+ Years (3 of 3 - PPSV23 or PCV20) Pneumococcal Vaccine: 65+ Years (3 of 3 - PPSV23 or PCV20) [facility] Start: 08-19-2019 Fall Risk Screening Fall Risk Screening [facility] Start: 02-22-2017 DTaP/Tdap/Td Vaccines (1 - Tdap) DTaP/Tdap/Td Vaccines (1 - Tdap) [facility] Start: 2014 RSV High Risk: (Elderly (60+) or Population) (1 - Risk 60-74 years 1-dose series) RSV High Risk: (Elderly (60+) or Population) (1 - Risk 60-74 years 1-dose series) [facility] Start: 2014 RSV patients and/or patients aged 60+ years (1 - 1-dose 60+ series) RSV patients and/or patients aged 60+ years (1 - 1-dose 60+ series) [facility] Start: 2004 Administration of varicella zoster vaccine Zoster (Shingles) Vaccine (1 of 2) [facility] Start: 2004 Zoster Vaccines (1 of 2) Zoster Vaccines (1 of 2) [facility] Start: 1976 DTaP/Tdap/Td Vaccines (1 - Tdap) DTaP/Tdap/Td Vaccines (1 - Tdap) [facility] Start: 1973 DTaP,Tdap and Td Vaccines (1 - Tdap) DTaP,Tdap and Td Vaccines (1 - Tdap) [facility] Start: 1972 Adult BMI Screening Adult BMI Screening [facility] Start: 1972 Diabetes mellitus screening Diabetes Screening [facility] Start: 1972 Hepatitis C screening Hepatitis C Screening [facility] Start: 1966 Depression Screening Depression Screening [facility] Start: 1966 Tobacco Screening Tobacco Screening [facility] Start: 08-19-1955 MMR Vaccines (1 of 1 - Standard series) MMR Vaccines (1 of 1 - Standard series) [facility] Start: 1954 Annual wellness visit Medicare Initial Physical (IPPE) [facility] Start: 1954 Creatinine measurement Creatinine Level [facility] Start: 1954 Lipid panel Lipid Panel [facility] Start: 1954 Medicare Annual Wellness Visit Medicare Annual Wellness Visit (AWV) [facility] Start: 1954 Potassium measurement Potassium Level [facility] Start: 1954 Screening for malignant neoplasm of colon [facility] Start: 1954 Thyroid stimulating hormone measurement TSH Level [facility] Anion gap measurement [facility] Anion gap measurement [facility] Basophils [#/volume] in Blood by Automated count [facility] Basophils [#/volume] in Blood by Automated count [facility] Basophils/100 leukoc ytes in Blood by Automated count [facility] Basophils/100 leukoc ytes in Blood by Automated count [facility] Comprehensive metabo lic 2000 panel - Serum or Plasma [facility] ECG 12 Lead ECG 12 Lead ECG Routine Atrial fibrillation, unspecified type (Multi) 02/20/2024 1:44 PM EDT [facility] Service Area Work Phone: ECG 12 Lead ECG 12 Lead ECG Routine Atrial fibrillation, unspecified type (Multi) 07/25/2024 9:48 AM EDT [facility] Area Work Phone: ECG 12 Lead ECG 12 Lead ECG Routine High risk medication use 01/15/2025 8:35 AM EDT [facility] Work Phone: Eosinophils/100 leukocytes in Blood by Automated count [facility] Eosinophils/100 leukocytes in Blood by Automated count [facility] Erythrocyte distribu tion width [Ratio] by Automated count [facility] Erythrocyte distribu tion width [Ratio] by Automated count [facility] Erythrocytes [#/volu me] in Blood [facility] Erythrocytes [#/volu me] in Blood [facility] Glomerular filtratio n rate [Volume Rate/Area] in Serum, Plasma or Blood by Creatinine [facility] Hematocrit [Volume Fraction] of Blood [facility] Hematocrit [Volume Fraction] of Blood [facility] Hemoglobin [Mass/vol ume] in Blood [facility] Hemoglobin [Mass/vol ume] in Blood [facility] Leukocytes [#/volume ] corrected for nucleated erythrocytes in Blood by Automated coun [facility] Leukocytes [#/volume ] corrected for nucleated erythrocytes in Blood by Automated coun [facility] Leukocytes [#/volume ] in Blood [facility] Leukocytes [#/volume ] in Blood [facility] Lymphocytes [#/volum e] in Blood by Automated count [facility] Lymphocytes [#/volum e] in Blood by Automated count [facility] Lymphocytes/100 leukocytes in Blood by Automated count [facility] Lymphocytes/100 leukocytes in Blood by Automated count [facility] MCH [Entitic mass] b y Automated count [facility] MCH [Entitic mass] b y Automated count [facility] MCHC [Mass/volume] b y Automated count [facility] MCHC [Mass/volume] b y Automated count [facility] MCV [Entitic volume] by Automated count [facility] MCV [Entitic volume] by Automated count [facility] Monocytes [#/volume] in Blood by Automated count [facility] Monocytes [#/volume] in Blood by Automated count [facility] Monocytes/100 leukoc ytes in Blood by Automated count [facility] Monocytes/100 leukoc ytes in Blood by Automated count [facility] Neutrophils [#/volum e] in Blood by Automated count [facility] Neutrophils [#/volum e] in Blood by Automated count [facility] Neutrophils/100 leukocytes in Blood by Automated count [facility] Neutrophils/100 leukocytes in Blood by Automated count [facility] Nucleated erythrocyt es [Presence] in Blood by Automated count [facility] Nucleated erythrocyt es [Presence] in Blood by Automated count [facility] Patient Education [facility] Work Phone: Patient referral [facility] Work Phone: Platelet mean volume [Entitic volume] in Blood by Automated count [facility] Platelet mean volume [Entitic volume] in Blood by Automated count [facility] Platelets [#/volume] in Blood [facility] Platelets [#/volume] in Blood [facility] Immunizations Immunization Date Immunization Notes Care Provider Fa cility 07-16-2024 RSV, 60 Years And Older (AREXVY) Shannon Gonzalez MD Work Phone: [facility] Work Phone: 03-25-2024 influenza, high dose seasonal, preservative-free Adam Del Valle DO Work Phone: [facility] 02-13-2024 Flu vaccine, quadrivalent, high-dose, preservative free, age 65y+ (FLUZONE) Shannon Gonzalez MD Work Phone: [facility] 02-13-2024 influenza virus vaccine, unspecified formulation Ning Godoy WRAP 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 Work Phone: [facility] Work Phone: 03-01-2023 influenza, high dose seasonal, preservative-free Adam Del Valle Other [facility] [employer] Other 03-01-2023 influenza virus vaccine, unspecified formulation DO Adam Ball Work Phone: [facility] 03-02-2022 Fluad Quadrivalent 0 .5 ML Intramuscular Prefilled Syringe Adam Bird Ball Work Phone: [facility] [address] DO Work Phone: 03-02-2022 influenza virus vaccine, split virus (incl. purified surface antigen) Nick Muniz Other [facility] [employer] Other 03-02-2022 influenza virus vaccine, unspecified formulation Clinton NORMAN [facility] 03-02-2022 influenza, seasonal, injectable Steven Alvares MD Work Phone: [facility] Work Phone: 03-02-2022 influenza, high dose seasonal, preservative-free Adam Del Valle Other [email or web address] [email or web address] Other 03-26-2021 Fluzone High-Dose Quadrivalent 0.7 ML Intramuscular Suspension Prefilled Syringe Adam Del Valle Work Phone: [facility] [address] DO Work Phone: 03-26-2021 influenza virus vaccine, unspecified formulation Clinton NORMAN [facility] 03-26-2021 influenza, high dose seasonal, preservative-free Steven Alvares MD Work Phone: [facility] Work Phone: 03-26-2021 Pfizer-BioNTech COVID-19 Vacc 30 MCG/0.3ML Intramuscular Suspension Adam Del Valle Work Phone: [facility] 02-12-2021 influenza virus vaccine, unspecified formulation Clinton NORMAN [facility] 09-14-2020 SARS-CoV-2 (COVID-19 ) mRNA [id number] vax Clinton NORMAN [facility] 08-12-2020 Pfizer-BioNTech COVID-19 Vacc 30 MCG/0.3ML Intramuscular Suspension Adam Del Valle Work Phone: [facility] 03-31-2021 pneumococcal conjuga te vaccine, 13 valent Setven Alvares MD Work Phone: [facility] Work Phone: 07-22-2020 Pfizer-BioNTMobile [employer] COVID-19 Vacc 30 MCG/0.3ML Intramuscular Suspension Adam Del Valle Work Phone: [facility] Comment on above: Result Comment: 2023: [id number] 02-17-2020 influenza virus vaccine, unspecified formulation Clinton NORMAN [facility] 02-17-2020 influenza, high dose seasonal, preservative-free Adam E Ivon Work Phone: [facility] [address] DO Work Phone: 02-13-2020 influenza virus vaccine, unspecified formulation Clinton NORMAN [facility] 02-03-2020 influenza virus vaccine, split virus (incl. purified surface antigen) Nick Muniz Other [facility] [employer] Other 02-03-2020 influenza virus vaccine, unspecified formulation DO Adam Del Valle Work Phone: [facility] 01-14-2020 influenza virus vaccine, unspecified formulation Clinton NORMAN [facility] 01-14-2020 influenza, high dose seasonal, preservative-free Adam E Ivon Work Phone: [facility] [address] DO Work Phone: 02-19-2019 influenza virus vaccine, split virus (incl. purified surface antigen) Nick Muniz Other [facility] [employer] Other 02-19-2019 influenza virus vaccine, unspecified formulation DO Adam Del Valle Work Phone: [facility] 02-21-2017 influenza virus vaccine, unspecified formulation Clinton NORMAN [facility] 02-21-2017 influenza, seasonal, injectable Adam Del Valle Work Phone: [facility] [address] DO Work Phone: 02-21-2017 tetanus and diphther ia toxoids, adsorbed, preservative free, for adult use (5 Lf of tetanus toxoid and 2 Lf of diphtheria toxoid) Nick Muniz Other [facility] 06-29-2016 pneumococcal polysaccharide vaccine, 23 valent Adam Del Valle Work Phone: [facility] 06-24-2016 pneumococcal conjuga te vaccine, 13 valent Adam Del Valle Work Phone: [facility] 06-24-2016 pneumococcal Conjugate, unspecified formulation; Translations: [Need for prophylactic vaccination against Streptococcus pneumoniae (pneumococcus)] Nick Muniz Other [facility] [employer] Other 04-19-2016 influenza, seasonal, injectable Ning Godoy APRNEAP COUNSELOR Work Phone: [facility] Work Phone: 03-30-2016 influenza virus vaccine, split virus (incl. purified surface antigen) Nick Muniz Other [employer] Other 03-30-2016 influenza virus vaccine, unspecified formulation DO Adam Del Valle Work Phone: [facility] 06-16-2010 pneumococcal polysaccharide vaccine, 23 valent Nick Muniz Other [facility] 11-19-2003 tetanus toxoid, adsorbed Adam Del Valle Work Phone: [facility] [address] DO Work Phone: Payers Date Payer Category Payer Private Health Insurance [id number] 2024 Private Health Insurance [id number] 2024 Self-pay [id number] 2023 Medicare [id number] 2023 Medicare (Managed Care) 1.2. [id number] 2023 Private Health Insurance [id number] 1959 Medicare [id number] 1954 Unknown [id number] 2.16.840.1.955141.3.579.2.593 1954 Unknown [id number] 2.16.840.1.739462.3.579.2.593 1954 Unknown [id number] 2.16.840.1.309693.3.579.2.593 1954 Unknown [id number] 2.16.840.1.912865.3.579.2.593 1954 Unknown [id number] 2.16.840.1.800793.3.579.2.593 1954 Unknown [id number] 2.16.840.1.376698.3.579.2.593 1954 Unknown [id number] 2.16.840.1.994532.3.579.2.593 1954 Unknown [id number] 2.16.840.1.613293.3.579.2.593 1954 Unknown [id number] 2.16.840.1.965167.3.579.2.727 1954 Unknown [id number] 2.16.840.1.605369.3.579.2.727 1954 Unknown [id number] 2.16.840.1.684294.3.579.2.727 1954 Unknown [id number] 2.16.840.1.318929.3.579.2.727 1954 Unknown [id number] 2.16.840.1.657105.3.579.2.727 1954 Unknown [id number] 2.16.840.1.209896.3.579.2.124 6 1954 Unknown [id number] 2.16.840.1.757175.3.579.2.124 6 1954 Unknown [id number] 2.16.840.1.501493.3.579.2.124 6 1954 Unknown [id number] 2.16.840.1.127067.3.579.2.124 6 1954 Unknown [id number] 2.16.840.1.420455.3.579.2.124 6 1954 Unknown [id number] 2.16.840.1.047268.3.579.2.124 6 1954 Unknown [id number] 2.16.840.1.350582.3.579.2.124 4 1954 Unknown [id number] 2.16.840.1.560126.3.579.2.124 4 1954 Unknown [id number] 2.16.840.1.074250.3.579.2.124 4 1954 Unknown [id number] 2.16.840.1.354481.3.579.2.124 4 1954 Unknown [id number] 2.16.840.1.105268.3.579.2.124 4 1954 Unknown [id number] 2.16.840.1.086987.3.579.2.124 4 Unknown MEDICARE Unknown HCAP/HFA/FAP Active [id number] Unknown [id number] 2.16.840.1.931868.3.579.2.531 Unknown [id number] 2.16.840.1.034940.3.579.2.531 Unknown [id number] 2.16.840.1.002421.3.579.2.531 Unknown [id number] 2.16.840.1.397913.3.579.2.531 Unknown [id number] 2.16.840.1.853123.3.579.2.531 Unknown [id number] 2.16.840.1.879871.3.579.2.531 Unknown [id number] 2.16.840.1.197543.3.579.2.531 Unknown [id number] 2.16.840.1.555777.3.579.2.531 Social History Date Type Detail Facility Start: 07-26-2023 End: 01-15-2025 Caffeine use Caffeine use [facility] 250 DO Work Phone: Comment on above: 1-2 servings; Start: 04-05-2021 End: 07-26-2023 Tobacco smoking status Never smoked tobacco (finding) [facility] Start: 07-26-2023 End: 01-15-2025 Sex Assigned At Male [facility] Start: 1955 Sex Assigned At Male [facility] Start: 04-08-2022 Tobacco smoking status Never [facility] Start: 07-26-2023 Tobacco use and exposure User of smokeless tobacco [facility] Work Phone: History of tobacco use Chews Tobacco [facility] Work Phone: Start: 10-13-2023 End: 02-20-2024 Alcoholic beverage intake Current drinker of alcohol (finding) [facility] Work Phone: Start: 1955 Sex assigned at Not on file [facility] Work Phone: Start: 10-03-2023 End: 08-09-2024 Exposure to SARS-CoV-2 (event) Not sure [facility] Start: 03-27-2024 End: 07-25-2024 Alcoholic beverage intake Ex-drinker (finding) [facility] Work Phone: Start: 03-25-2024 End: 09-02-2024 Sex Male (finding) [facility] Tobacco smoking stat us NHIS Tobacco smoking consumption unknown [facility] Sexual Orientation [facility] Start: 10-31-2024 End: 01-17-2025 Alcoholic beverage intake Lifetime non-drinker (finding) [facility] Work Phone: Start: 11-11-2024 End: 11-11-2024 Tobacco smoking status NHIS Ex-smoker (finding) [facility] Start: 11-11-2024 End: 01-06-2025 SDOH Follow up SDOH Follow up [facility] Work Phone: Start: 01-02-2025 End: 01-05-2025 Tobacco smoking status NHIS Smokes tobacco daily (finding) [facility] Goals Date Patient Goal Desired Activity /State Functional Status Date Assessment Result Facility 01-09-2025 Functional status Patient is Pro gressing Toward Baseline [facility] Work Phone: 11-12-2024 Functional status Patient at Baseline [facility] Work Phone: 07-09-2024 Functional status Patient at Baseline [facility] Work Phone: 03-20-2024 Functional status Patient at Baseline [facility] Work Phone: 03-01-2024 Functional status Patient at Baseline [facility] Work Phone: 02-04-2024 Functional status Patient at Baseline [facility] Work Phone: 08-14-2023 Functional Status N/A [facility] 11-28-2022 Functional Status N/A [facility] 02-14-2022 Functional Status N/A [facility] Mental Status Date Assessment Result Facility 01-09-2025 Cognitive function Cognitive Sta tus Patient is Progressing Toward Baseline [facility] Work Phone: 11-12-2024 Cognitive function Cognitive Sta tus Patient at Baseline [facility] Work Phone: 07-09-2024 Cognitive function Cognitive Sta tus Patient at Baseline [facility] Work Phone: 03-20-2024 Cognitive function Cognitive Sta tus Patient at Baseline [facility] Work Phone: 03-01-2024 Cognitive function Cognitive Sta tus Patient at Baseline [facility] Work Phone: 02-04-2024 Cognitive function Cognitive Sta tus Patient at Baseline [facility] Work Phone: Clinical Notes 08-09-2021 to 01-17-2025 Maya Fuentes, [facility] - 01/17/2025 11:00 AM EDTAssessment & Plan Note - DANICA Arguelles - 01/16/2025 2:10 PM EDTAssessment & Plan Note - DANICA Arguelles - 01/16/2025 2:10 PM EDT Note Date & Type Note Facility 01-17-2025 History of Presen t illness Narrative Patient here for EKG visit ordered by Ning Godoy AUTOMOTIVE SERVICE PROFESSIONAL due to prolong QTc. Ning Godoy AUTOMOTIVE SERVICE PROFESSIONAL in suite to review EKG prior to discharge. Medication list Updated verbally. Patient complains of shortness of breath, lightheadedness, fatigue and weakness. Patient has no other cardiac complaints at time of visit. To Dr. 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 CHADS VASc 2 anticoagulated on full dose Xarelto CR 0.86 Denies bleeding diathesis Discharge Hgb 9.9 In 2014 had GIB on coumadin (for LV thrombus) Associated Problem(s): LV dysfunction Jan 2015: TTE [...] re challenged to low dose at recent discharge and has symptomatic hypotension Associated Problem(s): 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 (Multi) Maintaining NSR during December 2024 hospitalization Last PAF Mar 2024 (was on amiodarone at the time and changed to dofetilide) Associated Problem(s): High risk medication use Prior amiodarone failure Dofetilide 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 0.Jun hospitalization reported Qtc prolongation on dofetlide 250 mcg BID. Jan 09, 2025: inpatient ECG Qtc 548 documented in this encounter [facility] Work Phone: 01-16-2025 Evaluation + Plan note Associated Problem(s): Cardiac and Vasculature July 2015 cardiac cath: angiographically normal coronaries May 2024 MPI No ischemia/infarct EF 57% [facility] Work Phone: 01-16-2025 Evaluation + Plan note Associated Problem(s): Chewing tobacco use Discussed risk of continued usage [facility] Work Phone: 01-16-2025 Evaluation + Plan note Associated Problem(s): senior living (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 CHADS VASc 2 anticoagulated on full dose Xarelto CR 0.86 Denies bleeding diathesis Discharge Hgb 9.9 In 2014 had GIB on coumadin (for LV thrombus) [facility] Work Phone: 01-16-2025 Evaluation + Plan note Associated Problem(s): LV dysfunction Jan 2015: TTE [...] re challenged to low dose at recent discharge and has symptomatic hypotension [facility] Work Phone: 01-16-2025 Evaluation + Plan note Associated Problem(s): 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 (Multi) Maintaining NSR during December 2024 hospitalization Last PAF Mar 2024 (was on amiodarone at the time and changed to dofetilide) [facility] Work Phone: 01-16-2025 Evaluation + Plan note Associated Problem(s): High risk medication use Prior amiodarone failure Dofetilide 250mcg BID - start date Mar 2024 ECG in office today bigeminy Cr. 0.Jun hospitalization reported Qtc prolongation on dofetlide 250 mcg BID. Jan 09, 2025: inpatient ECG Qtc 548 [facility] Work Phone: 01-15-2025 History of Presen t illness Narrative Chief Complaint 'just feeling the same as usual' Reason for Visit Patient presents to the office today for outpatient follow-up for hospital follow up. Last evaluated in clinic by Dr. Gonzalez October 2024. Presents today in wheelchair, has been utilizing oxygen consistently for couple of months now. Accompanied by family member. December 2024: [place] [facility] [place] Seen in Cardiology consult [...] the office today where he feels like his breathing remains at baseline, his activity is fairly limited reports he can walk approximately 10 feet at home and this is pretty consistent with his history. He denies orthopnea or PND. In the office today systolic blood pressure is 78 and he reports no dizzier than usual . He denies any history of syncope, no near syncope. Denies any type of palpitations. Patient reports that overall has no complaint(s) of chest pain, chest pressure/discomfort, claudication, exertional chest pressure/discomfort, and lower extremity edema Extensive record review reveals 2016 cardiac MRI with cardiac sarcoidosis. He has had varying QTc levels on dofetilide over the last 8 months. In the office today he has bigeminy which is new to him, unable to assess QTc. He was placed on Lasix 40 mg at time of discharge and will have him go to the lab to check a potassium and magnesium. Also inpatient findings were reported to be Takotsubo, there was no cardiac catheterization that was completed. In the past he has been unable to tolerate IVANA inhibitor and is not tolerating today due to hypotension. Will obtain repeat labs, discontinue Lasix and valsartan. Repeat limited echocardiogram in 4 weeks, due to bigeminy check 48-hour Holter to rule out any type of malignant ventricular arrhythmia. Clinical scenario will be reviewed in detail with Dr. Gonzalez tomorrow. Questionable need to repeat cardiac MRI [...] 91 Ht 1.829 m (6') BMI 18.58 kg/m Smoking Status Never BSA 1.78 m Physical Exam Vitals and nursing note reviewed. Constitutional: Appearance: Normal appearance. He is underweight. Cardiovascular: Rate and Rhythm: Normal rate and regular rhythm. Heart sounds: Murmur heard. Systolic murmur is present with a grade of 2/6. Pulmonary: Effort: Pulmonary effort is normal. Breath sounds: Examination of the right-lower field reveals decreased breath sounds. Examination of the left-lower field reveals decreased breath sounds. Decreased [...] re challenged to low dose at recent discharge and has symptomatic hypotension senior living (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 CHADS VASc 2 [...] making process incorporating patients unique circumstances, the following treatment plan will be initiated: 1. Prescription drug management of cardiovascular medication for efficacy, adherence to treatment, side effect assessment and polypharmacy. Current treatment clinically warranted and to continue with following modifications: - Stop valsartan (making BP too low) - Reduce lasix to as needed 2. Labs (cbc, chem6, MG. bnp) 3. 24 hour holter (cardiac sarcoidosis, PAF, bigeminy) 4. Limited echo in one month (follow up Takotsubo) 5. Return for follow-up; in the interim, contact the office if new symptoms arise. Dr. Gonzalez after testing Clinical scenario reviewed in detail with Dr. Gonzalez Will proceed with cMRI for cardiac sarcoidosis ECG for Qtc tomorrow Ning Godoy MSN, DANICA, PMHNP-[facility] [place], [place] Please excuse any errors in grammar or translation related to this dictation. Voice recognition software was utilized to prepare this document. documented in this encounter [facility] Work Phone: 01-15-2025 Instructions DANICA Arguelles - 01/15/2025 8:30 AM EDT [...] making process incorporating patients unique circumstances, the following treatment plan will be initiated: 1. Prescription drug management of cardiovascular medication for efficacy, adherence to treatment, side effect assessment and polypharmacy. Current treatment clinically warranted and to continue with following modifications: - Stop valsartan (making BP too low) - Reduce lasix to as needed 2. Labs (cbc, chem6, MG. bnp) 3. 24 hour holter (cardiac sarcoidosis, PAF, bigeminy) 4. Limited echo in one month (follow up Takotsubo) 5. Return for follow-up; in the interim, contact the office if new symptoms arise. Dr. Gonzaelz after testing Clinical scenario reviewed in detail with Dr. Gonzalez Will proceed with cMRI for cardiac sarcoidosis ECG for Qtc documented in this encounter [facility] Work Phone: 01-09-2025 Discharge summary Note Date/Time January 09, 2025 1:41pm [facility] [address] [place] [address] Discharge Summary Signed Patient: Mary Mcadams MR#: [id number] : 1955 Acct:[id number] Age/Sex: 69 / M Adm Date: 5 Loc: Room: [address] [place] [address]: Jostin Larose DO Copies to: DO Jostin Waller, DO~ Providers Date of Admission: 01/05/25 Date of Discharge: 01/09/25 Discharging Provider: Jostin Larose Primary Care Provider: Adam Del Valle Consults: 01/05/25 02:39 Consult to Cardiology Routine Comment: Consulting Provider: [facility] Reason For Exam: abn trop Has Provider Been Notified: Yes Date of Notification: 01/05/25 Time of Notification: 07:26 01/05/25 02:40 Consult to Occupational Therapy Routine Comment: Physician Instructions: Consult to OT for:: Evaluation and Treat Consult to Physical Therapy Routine Comment: Physician Instructions: Consult to PT for:: Evaluation and Treat Discharge Diagnosis (1) Non-ST elevation UT (NSTEMI): (2) Takotsubo cardiomyopathy: (3) History of sarcoidosis: (4) Acute on chronic hypoxic respiratory failure: (5) Pulmonary sarcoidosis: (6) Atrial fibrillation: Final Diagnosis Final Discharge Diagnosis: as above Summary Hospital Course Hospital course: Mr Pema Gomes is a 69-year-old male who 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 He was requiring more oxygen than his baseline, 4 to 5 L on admission his baseline is 2-3. He was started antibiotic therapy, DuoNebs, and steroids, his troponinstrended up throughout his initial admission, he was subsequently placed on heparin infusion and started on ACS pathway with cardiology consult. Cardiologyfelt as likely type II secondary to CHF, agree with diuresis and initiated GDMT which was uptitrated as tolerated. Echocardiogram was checked and though officially reported as EF of 45 to 50%, per the review of the reordering clerk on the case who discussed it with me personally, was more consistent with Takotsubocardiomyopathy with apical ballooning. There is no indication for ischemic workup at he had a previous heart cath which showed no occlusion and recent stress test which showed no evidence of CAD. He also had an EKG the morning of January 07 which showed his QTc interval to be about 700. We continue with diuresis though he was orthostatic throughout times, had been slowed on his diuresis as tolerated. The afternoon of January 09 he was hemodynamically stablefor discharge and sent home in the hospital. He was discharged on valsartan, Jardiance, Aldactone, and metoprolol as well as aspirin and low-dose Lasix. He will continue a prednisone taper as he was on Solu-Medrol throughout his hospitalization for sarcoidosis. He is high risk for readmission. Time Spent with Patient Time spent providing/coordinating discharge services (# min): 35 Discharge Plan Discharge Plan Patient Disposition: Home Health Services Activity: No Activity Restriction Diet: Low-Sodium Additional Instructions: Continue oxygen as per chronic orders Home health to manage: -RN/PT/OT/Aide/SW to eval and treat -Monitor VS per protocol -Fall precautions -Perform respiratory and cardiovascular assessments -Continue oxygen as per chronic orders -Assist with medication management and education Instructions: Know your Meds Prescriptions: New aspirin 81 mg Tablet,Delayed Release (Dr/Ec) 81 mg PO DAILY 30 Days Qty: 30 12RF spironolactone 25 mg Tablet 12.5 mg PO DAILY 30 Days Qty: 15 12RF valsartan 40 mg Tablet 40 mg PO DAILY 30 Days Qty: 30 12RF furosemide 40 mg Tablet 40 mg PO DAILY.8A 30 Days Qty: 30 12RF magnesium oxide 400 mg (241.3 mg magnesium) Tablet 400 mg PO DAILY 30 Days Qty: 30 12RF dapagliflozin propanediol 10 mg Tablet 10 mg PO DAILY 30 Days Qty: 30 12RF prednisone 10 mg tablet 10 mg PO DIRECTED Qty: 40 0RF Rx Instructions: Take 4 pills for 4 days Take 3 pills for 4 days Take 2 pills for 4 days Take 1 pill for 4 days then stop Continued tamsulosin 0.4 mg capsule See Rx Instructions .ROUTE .COMPLEX Qty: 60 11RF Dose Instruction: TAKE 1 CAPSULE BY MOUTH TWICE DAILY Rx Instructions: TAKE 1 CAPSULE BY MOUTH TWICE DAILY multivitamin with minerals Capsule 1 cap PO DAILY Qty: 90 3RF atorvastatin 40 mg Tablet 40 mg PO QPM 30 Days Qty: 30 12RF pantoprazole 40 mg Tablet,Delayed Release (Dr/Ec) 40 mg PO DAILY.AC.BKFAST Qty: 0 0RF dofetilide 250 mcg capsule 250 mcg PO Q12H prednisolone acetate 1 % drops,suspension 1 drp Eye-Left QID valacyclovir 1 gram tablet 1,000 mg PO BID ipratropium-albuterol 0.5 mg-3 mg(2.5 mg base)/3 mL solution for nebulization 3 ml inhalation QID PRN (Reason: shortness of breath) Xarelto 20 mg Tablet 20 mg PO QHS Rx Instructions: Further refills per Cardiology with Dr. Gonzalez. ofloxacin 0.3 % drops 1 drp Eye-Left QID Rx Instructions: instill 1 DROP IN THE AFFECTED EYE(S) FOUR TIMES DAILY start 3 (THREE) days prior to surgery, then immediately following surgery EVERY HOUR WHILE AWAKE, then the next day FOUR TIMES DAILY until next appointment for further directions finasteride 5 mg tablet 5 mg PO DAILY latanoprost 0.005 % drops 1 drp Eye-Left HS metoprolol succinate 25 mg tablet extended release 24 hr 25 mg PO DAILY potassium chloride [Klor-Con 10] 10 mEq tablet extended release 10 meq PO DAILY 30 Days Qty: 30 11RF Discontinued furosemide 20 mg tablet 20 mg PO DAILY PRN (Reason: edema) Rx Instructions: Right leg edema No Action (DME) Oxygen Unit See Rx Instructions .Route Rx Instructions: 2 liters at HS and napping DME [facility] Other Ambulatory Orders: Initiate Home Health (Routine) Timeframe: 20250109 Location: Determined by Patient Ordered By: Jostin Larose Follow Up: Adam Del Valle DO [Primary Care Provider, Internal Medicine] - 01/22/25 10:00 am Referral Note: You have been scheduled for a follow up appointment for the following date and time, please call to reschedule if needed. Ning Godoy APRN [Referring, Cardiology] - 01/15/25 8:30 am Continuity of Care Document Health Concerns: A [facility] screening has identified you as FRAIL or AT RISK FOR FRAILTY. This puts you at a higher risk for infection, illness, falls,and other injuries. Here are four ways to help you reduce your risk of frailty: 1. IDENTIFY EARLY SIGNS OF FRAILTY ? Discuss contributing factors and concerns with your doctor 2. BE ACTIVE ? Walking and light strengthening exercises will help reduce weakness 3. EAT WELL ? Aim for three healthy meals a day that are high in protein 4. THINK POSITIVE ? Keep your mind active by being sociable and continuing to learn References: Stay Strong: Four Ways to Beat the Frailty Risk [email or web address] [email or web address] [email or web address]-goteftz-[email or web address] Exam Physical Exam Vital Signs: Temp Pulse Resp BP Pulse Ox O2 Del Method O2 Flow Rate 97.6 F 83 20 109/67 100 Nasal Cannula 2 01/09/25 11:34 01/09/25 12:03 01/09/25 12:03 01/09/25 11:34 01/09/25 11:34 01/09/25 11:34 01/09/25 11:34 FiO2 30 01/05/25 11:18 Narrative: General: Awake alert, no acute distress HEENT: head atraumatic, normocephalic, moist mucous membranes Neck: supple no masses, no lymphadenopathy CVS: regular rate and rhythm, no murmurs or gallops Respiratory: Lungs are CTAB. GI: soft, nondistended, nontender, positive bowel sounds with no organomegaly Extremity: moves all extremities, no restrictions of movements, no calf tenderness, no edema Neuro: AOx3, CN II-VII intact. Moves all extremities in all planes of motion. Skin: dry, intact no rashes or lesions Diagnostic Studies Completed and Pending Studies Pending studies at discharge: 01/05/25 04:06 Sputum Culture Routine 01/09/25 05:00 EKG [ECG 12 lead ECG] IN AM Labs on day of discharge: 01/09/25 04:10: PHA Creatinine Clear 51.32, Sodium 137, Potassium 4.9, Chloride 104, Carbon Dioxide 26.9, Anion Gap 11.0, BUN 45 H, Creatinine 1.15, Est GFR (CKD-EPI) > 60.0, Glucose 132 H, Calcium 8.8, Magnesium 2.3 Documented By: Jostin Larose DO 01/09/25 1329 Signed By: <Electronically signed by Jostin Larose DO> 01/09/25 1341 [facility] Work Phone: 1(292) 740-457208-28-2025 Hospital Discharge instructionsAmbulatory Orders* Initiate Home Health Time Frame: 01/09/25, Location: Determined By Patient Additional Instructions Continue oxygen as per chronic orders Home health to manage: -RN/PT/OT/Aide/SW to eval and treat -Monitor VS per protocol -Fall precautions -Perform respiratory and cardiovascular assessments -Continue oxygen as per chronic orders -Assist with medication management and [facility] Work Phone: 1(576) 729-635108-28-2025 [place] [address] Discharge Summary Signed Patient: Mary Mcadams MR#: [id number] : 1955 Acct:[id number] Age/Sex: 69 / M Adm Date: 5 Loc: Room: [address] [place] [address]: Jostin Larose DO Copies to: DO Jostin Waller, ~ Providers Date of Admission: 01/05/25 Date of Discharge: 01/09/25 Discharging Provider: Jostin Larose Primary Care Provider: Adam Del Valle Consults: 01/05/25 02:39 Consult to Cardiology Routine Comment: Consulting Provider: [facility] Reason For Exam: abn trop Has Provider Been Notified: Yes Date of Notification: 01/05/25 Time of Notification: 07:26 01/05/25 02:40 Consult to Occupational Therapy Routine Comment: Physician Instructions: Consult to OT for:: Evaluation and Treat Consult to Physical Therapy Routine Comment: Physician Instructions: Consult to PT for:: Evaluation and Treat Discharge Diagnosis (1) Non-ST elevation UT (NSTEMI): (2) Takotsubo cardiomyopathy: (3) History of sarcoidosis: (4) Acute on chronic hypoxic respiratory failure: (5) Pulmonary sarcoidosis: (6) Atrial fibrillation: Final Diagnosis Final Discharge Diagnosis: as above Summary Hospital Course Hospital course: Mr Pema Gomes is a 69-year-old male who 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 He was requiring more oxygen than his baseline, 4to 5 L on admission his baseline is 2- 3. He was started antibiotic therapy, DuoNebs, and steroids, his troponinstrended up throughout his initial admission, he was subsequently placed on heparin infusion and started on ACS pathway with cardiology consult. Cardiologyfelt as likely type II secondary to CHF, agree with diuresis and initiated GDMT which was uptitrated as tolerated. Echocardiogram waschecked and though officially reported as EF of 45 to 50%, per the review of the reordering clerk on the case who discussed it with me personally, was more consistent with Takotsubocardiomyopathy with apical ballooning. There is no indication for ischemic workup at he had a previous heart cath which showed no occlusion and recent stress test which showed no evidence of CAD. He also had an EKG the morning of January 07 which showed his QTc interval to be about 700. We continue with diuresis though hewas orthostatic throughout times, had been slowed on his diuresis as tolerated. The afternoon of January 09 he was hemodynamically stablefor discharge and sent home in the hospital. He was discharged on valsartan, Jardiance, Aldactone, and metoprolol as well as aspirin and low-dose Lasix. He will continue a prednisone taper as he was on Solu-Medrol throughout his hospitalization for sarcoidosis. He is high risk for readmission. Time Spent with Patient Time spent providing/coordinating discharge services (# min): 35 Discharge Plan Discharge Plan Patient Disposition: Home Health Services Activity: No Activity Restriction Diet: Low-Sodium Additional Instructions: Continue oxygen as per chronic orders Home health to manage: -RN/PT/OT/Aide/SW to eval and treat -Monitor VS per protocol -Fall precautions -Perform respiratory and cardiovascular assessments -Continue oxygen as per chronic orders -Assist with medication management and education Instructions: Know your Meds Prescriptions: New aspirin 81 mg Tablet,Delayed Release (Dr/Ec) 81 mg PO DAILY 30 Days Qty: 30 12RF spironolactone 25 mg Tablet 12.5 mg PO DAILY 30 Days Qty: 15 12RF valsartan 40 mg Tablet 40 mg PO DAILY 30 Days Qty: 30 12RF furosemide 40 mg Tablet 40 mg PO DAILY.8A 30 Days Qty: 30 12RF magnesium oxide 400 mg (241.3 mg magnesium) Tablet 400 mg PO DAILY 30 Days Qty: 30 12RF dapagliflozin propanediol 10 mg Tablet 10 mg PO DAILY 30 Days Qty: 30 12RF prednisone 10 mg tablet 10 mg PO DIRECTED Qty: 40 0RF Rx Instructions: Take 4 pills for 4 days Take 3 pills for 4 days Take 2 pills for 4 days Take 1 pill for 4 days then stop Continued tamsulosin 0.4 mg capsule See Rx Instructions .ROUTE .COMPLEX Qty: 60 11RF Dose Instruction: TAKE 1 CAPSULE BY MOUTH TWICE DAILY Rx Instructions: TAKE 1 CAPSULE BY MOUTH TWICE DAILY multivitamin with minerals Capsule 1 cap PO DAILY Qty: 90 3RF atorvastatin 40 mg Tablet 40 mg PO QPM 30 Days Qty: 30 12RF pantoprazole 40 mg Tablet,Delayed Release (Dr/Ec) 40 mg PO DAILY.AC.BKFAST Qty: 0 0RF dofetilide 250 mcg capsule 250 mcg PO Q12H prednisolone acetate 1 % drops,suspension 1 drp Eye-Left QID valacyclovir 1 gram tablet 1,000 mg PO BID ipratropium-albuterol 0.5 mg-3 mg(2.5 mg base)/3 mL solution for nebulization 3 ml inhalation QID PRN (Reason: shortness of breath) Xarelto 20 mg Tablet 20 mg PO QHS Rx Instructions: Further refills per Cardiology with Dr. Gonzalez. ofloxacin 0.3 % drops 1 drp Eye-Left QID Rx Instructions: instill 1 DROP IN THE AFFECTED EYE(S) FOUR TIMES DAILY start 3 (THREE) days prior to surgery, then immediately following surgery EVERY HOUR WHILE AWAKE, then the next day FOUR TIMES DAILY until next appointment for further directions finasteride 5 mg tablet 5 mg PO DAILY latanoprost 0.005 % drops 1 drp Eye-Left HS metoprolol succinate 25 mg tablet extended release 24 hr 25 mg PO DAILY potassium chloride [Klor-Con 10] 10 mEq tablet extended release 10 meq PO DAILY 30 Days Qty: 30 11RF Discontinued furosemide 20 mg tablet 20 mg PO DAILY PRN (Reason: edema) Rx Instructions: Right leg edema No Action (DME) Oxygen Unit See Rx Instructions .Route Rx Instructions: 2 liters at HS and napping DME [facility] Other Ambulatory Orders: Initiate Home Health (Routine) Timeframe: [id number] Location: Determined by Patient Ordered By: Jostin Larose Follow Up: Adam Del Valle DO [Primary Care Provider, Internal Medicine] - 01/22/25 10:00 am Referral Note: You have been scheduled for a follow up appointment for the following date and time,please call to reschedule if needed. Ning Godoy APRN [Referring, Cardiology] - 01/15/25 8:30 am Continuity of Care Document Health Concerns: A [facility] screening has identified you as FRAIL or AT RISK FOR FRAILTY. This puts you at a higher risk for infection, illness, falls,and other injuries. Here are four ways to help you reduce your risk of frailty: 1. IDENTIFY EARLY SIGNS OF FRAILTY ? Discuss contributing factors and concerns with your doctor 2. BE ACTIVE ? Walking and light strengthening exercises will help reduce weakness 3. EAT WELL ? Aim for three healthy meals a day that are high in protein 4. THINKPOSITIVE ? Keep your mind active by being sociable and continuing to learn References: Stay Strong:Four Ways to Beat the Frailty Risk [email or web address]/st [email or web address]-yzxy- hdvk-bx-fwjs-ega-bbrvhpq-ifjn Exam Physical Exam Vital Signs: Temp Pulse Resp BP Pulse Ox O2 Del Method O2 Flow Rate 97.6 F 83 20 109/67 100 Nasal Cannula 2 01/09/25 11:34 01/09/25 12:03 01/09/25 12:03 01/09/25 11:34 01/09/25 11:34 01/09/25 11:34 01/09/25 11:34 FiO2 30 01/05/25 11:18 Narrative: General: Awake alert, no acute distress HEENT: head atraumatic, normocephalic, moist mucous membranes Neck: supple no masses, no lymphadenopathy CVS: regular rate and rhythm, no murmurs or gallops Respiratory: Lungs are CTAB. GI: soft, nondistended, nontender, positive bowel sounds with no organomegaly Extremity: moves all extremities, no restrictions of movements, no calf tenderness, no edema Neuro: AOx3, CN II-VII intact. Moves all extremities in all planes of motion. Skin: dry, intact no rashes or lesions Diagnostic Studies Completed and Pending Studies Pending studies at discharge: 01/05/25 04:06 Sputum Culture Routine 01/09/25 05:00 EKG [ECG 12 lead ECG] IN AM Labs on day of discharge: 01/09/25 04:10: PHA Creatinine Clear 51.32, Sodium 137, Potassium 4.9, Chloride 104, Carbon Tkcuxos28.9, Anion Gap 11.0, BUN 45 H, Creatinine 1.15, Est GFR (CKD-EPI) > 60.0, Glucose 132 H, Calcium 8.8, Magnesium 2.3 Documented By: Jostin Larose DO 01/09/25 1329 Signed By: 01/09/25 1341 [facility]08-28-2025 Consult note Author Chacho Burroughs [facility] Note Date/Time January 09, 2025 10 :48am [facility] [address] [place] [address] Cardiology Consult Note Signed with Addenda Patient: Mary Mcadams MR#: [id number] : 1955 Acct:[id number] Age/Sex: 69 / M Adm Date: 5 Loc: Room: [address] [place] [address] Type: ADM IN Attending Dr: Jostin Larose DO Copies to: DO Chacho Waller MD Shawn J Warner, ~ ADDENDUM1 I reviewed patient complete echocardiogram. I disagree with the interpretation. Patient clearly have regional motion abnormality highly suspicious of Takotsubosyndrome. LVEF around 25-30% Addendum Documented By: MD Chacho Burroughs 01/09/25 1048 Addendum Signed By: <Electronically signed by MD Chacho Burroughs> 01/09/25 1048 Cardiology HPI History of Present Illness Consult Date: 01/05/25 Reason for Consult: Cardiac consultation requested for evaluation for increasing shortness of breathand elevated troponin HPI: Mr. Mcadams is a 69 year old male ischemic cardiomyopathy based on cardiac catheterization done back in 2015 that apparently had improved with medical therapy. History of atrial fibrillation antennae sinus rhythm with amiodarone. Back in 2016 patient had cardiac MRI that showed increase enhancement suggestiveof possible cardiac involvement of sarcoidosis. Patient had advanced COPD. Presented to the hospital with progressive shortness of breath and orthopnea. He denies chest pain. He was noted to have mildly elevated BNP and troponin. He denies chest pain. Patient report compliance with his medication. On my examination the patient appears to be in moderate respiratory distress with the use of accessory muscle. Bedside echocardiogram with hand-held probe demonstrate what appears to be severe LV systolic dysfunction Review of Systems Review of Systems All other systems reviewed & are negative unless noted below or in HPI Constitutional Constitutional: Reports fatigue and Reports weakness Eyes Eyes: Reports system reviewed and no additional complaints, except as documented ENT Ears, Nose, Mouth, and Throat: Reports system reviewed and no additional complaints, except as documented Cardiovascular Cardiovascular: Reports system reviewed and no additional complaints, except as documented, Reports dyspnea on exertion, Reports leg edema and Reports orthopnea Respiratory Respiratory: Reports dyspnea on exertion Gastrointestinal Gastrointestinal: Reports system reviewed and no additional complaints, except as documented Genitourinary Genitourinary: Reports system reviewed and no additional complaints, except as documented Musculoskeletal Musculoskeletal: Reports system reviewed and no additional complaints, except asdocumented and Reports arthralgias Integumentary/Breasts Skin/Breast: Reports system reviewed and no additional complaints, except as documented Neurologic Neurologic: Reports system reviewed and no additional complaints, except as documented Psychiatric Psychiatric: Reports system reviewed and no additional complaints, except as documented Endocrine Endocrine: Reports system reviewed and no additional complaints, except as documented Hematologic/Lymphatic Hematologic/Lymphatic: Reports system reviewed and no additional complaints, except as documented Allergic/Immunologic Allergic/Immunologic: Reports system reviewed and no additional complaints, except as documented [facility] Medical History On home oxygen therapy Skin cancer removed from back H/O: gout History of shingles left eye Blind right eye Acute exacerbation of chronic obstructive pulmonary disease (COPD) Hypoxemia Bullous emphysema Benign prostatic hyperplasia with lower urinary tract symptoms Atrial fibrillation Pulmonary sarcoidosis Chronic respiratory failure with hypoxia Carotid stenosis, right CTA: 90% right ICA - 02/2024 Chronic HFrEF (heart failure with reduced ejection fraction) Echo: LVEF 45-50%, normal RV size/function, mild aortic root dilatation 4.0 cm - 02/2024 Nonischemic cardiomyopathy Echo: LVEF 45-50%, normal RV size/function, mild aortic root dilatation 4.0 cm - 02/2024 Hyponatremia Anemia Alcohol dependence Hypertension History of cardioversion Abdominal pain Cardiac sarcoidosis History of aspergilloma Acoustic neuroma Lumbar spondylosis Gastroesophageal reflux disease with esophagitis without hemorrhage Diverticulosis Personal history of colonic polyps Surgical History H/O colonoscopy (~10/2021) repeat 5 years History of arthroscopic knee surgery Family History Brother Heart disease Legacy FamHx Relation: Brother(s) Multiple sclerosis Father Cancer Legacy FamHx Problem: Diagnosed with Cancer Mother Diabetes Heart disease Myocardial infarction Hx of CABG Social History Smoking Status: Current every day smoker Tobacco Type: smokeless tobacco Substance Use Type: Alcohol Substance Abuse Comment: no alcohol past couple months; hx up to 4-6 beers daily Meds Medications and Allergies Allergies No Known Allergies Allergy (Verified 01/04/25 22:04) Home Medications finasteride 5 mg tablet 5 mg PO DAILY 09/08/23 [History Confirmed 01/05/25] latanoprost 0.005 % eye drops 1 drp Eye-Left HS 10/12/23 [History Confirmed 01/05/25] Oxygen 10/23/23 [History Confirmed 01/05/25] multivitamin with minerals 1 cap PO DAILY #90 caps 03/19/24 [Rx Confirmed 01/05/25] atorvastatin 40 mg tablet 40 mg PO QPM 30 days #30 tabs 03/20/24 [Rx Confirmed 01/05/25] furosemide 20 mg tablet 20 mg PO DAILY PRN edema 06/03/24 [History Confirmed 01/05/25] metoprolol succinate 25 mg tablet,extended release 24 hr 25 mg PO DAILY 06/03/24[History Confirmed 01/05/25] pantoprazole 40 mg tablet,delayed release 40 mg PO DAILY.AC.BKFAST #0 tabs 07/09/24 [Rx Confirmed 01/05/25] tamsulosin 0.4 mg capsule See Rx Instructions .Route .COMPLEX #60 caps 08/11/24 [Rx Confirmed 01/05/25] dofetilide 250 mcg capsule 250 mcg PO Q12H 11/11/24 [History Confirmed 01/05/25] prednisolone acetate 1 % eye drops,suspension 1 drp Eye-Left QID Shingles 11/11/24 [History Confirmed 01/05/25] potassium chloride 10 mEq tablet,extended release (Klor-Con) 10 meq PO DAILY 30 days #30 tabs 11/19/24 [Rx Confirmed 01/05/25] ipratropium 0.5 mg-albuterol 3 mg (2.5 mg base)/3 mL nebulization soln 3 ml inhalation QID PRN shortness of breath 01/02/25 [History Confirmed 01/05/25] rivaroxaban 20 mg tablet (Xarelto) 20 mg PO QHS 01/02/25 [History Confirmed 01/05/25] valacyclovir 1 gram tablet 1,000 mg PO BID shingles in eye 01/02/25 [History Confirmed 01/05/25] ofloxacin 0.3 % eye drops 1 drp Eye-Left QID 01/05/25 [History Confirmed 01/05/25] Exam Physical Exam Vital Signs: Temp Pulse Resp BP Pulse Ox O2 Del Method O2 Flow Rate 97.9 F 80 20 112/72 99 Nasal Cannula 4 01/05/25 11:12 01/05/25 13:25 01/05/25 13:25 01/05/25 11:12 01/05/25 11:12 01/05/25 11:12 01/05/25 11:12 FiO2 30 01/05/25 01:00 Const General: cooperative, acute distress, in distress moderate and ill appearing Nutritional Appearance: cachectic HEENT Head: atraumatic Mouth: oral mucosae normal Eyes General: appearance normal, both eyes and all related structures Pupils: PERRL Neck Neck: normal visual inspection, supple and no lymphadenopathy noted Neck mass: No Thyroid: thyroid normal Carotids: normal carotid upstroke Other: Jugular venous distention was noted Chest Chest palpation & inspection: normal inspection of the chest Resp Effort & Inspection: labored and nasal flaring Auscultation: rales and rhonchi Cardio Palpation: normal PMI Rate: regular rate Rhythm: regular rhythm Heart Sounds: S1 normal, S2 normal and murmur systolic II/ GI Palpation: soft and no hepatosplenomegaly Percussion: normal to percussion Auscultation: normal bowel sounds Skin General: no rashes or lesions noted and dry skin Neuro General: patient alert, patient awake, patient oriented x3, tone normal and moves all extremities Extrem General: full ROM and capillary refill normal Other: There is swelling of the right ankle Psych Mental Status: mental status grossly normal Results - Cardiology Labs 01/05/25 03:20 01/05/25 03:20 Lab results: Cardiac Enzymes 01/04/25 Range/Units 22:10 AST 21 (13-39) U/L Total Creatine Kinase 30 (30-223) U/L B-Natriuretic Peptide 268.0 H (5-100) pg/mL CBC 01/04/25 01/05/25 Range/Units 22:10 03:20 RBC 3.80 L 3.54 L (3.90-5.60) x10E6/uL Hgb 10.6 L 9.9 L (13.0-17.0) g/dL Hct 31.7 L 29.8 L (38.8-50.0) % Plt Count 281 274 (150-450) x10E3/uL Neut # (Auto) 7.9 H 8.1 H (1.8-7.7) x10E3/uL Lymph # (Auto) 1.2 0.4 L (1.00-4.8) x10E3/uL Dickinson # (Auto) 0.6 0.1 (0.0-0.8) x10E3/uL Eos # (Auto) 0.3 0.0 (0.0-0.45) x10E3/uL Baso # (Auto) 0.1 0.0 (0.0-0.2) x10E3/uL Comprehensive Metabolic Panel 01/04/25 01/05/25 Range/Units 22:10 03:20 Sodium 137 137 (136-145) mmol/L Potassium 3.6 3.8 (3.5-5.1) mmol/L Chloride 104 104 (98-107) mmol/L Carbon Dioxide 25.3 23.3 (21.0-31.0) mmol/L BUN 11 11 (7-25) mg/dL Creatinine 0.88 0.86 (0.70-1.30) mg/dL Glucose 155 H 165 H (70-100) mg/dL Calcium 8.8 8.7 (8.6-10.3) mg/dL AST 21 (13-39) U/L ALT 9 (7-52) U/L Alkaline Phosphatase 140 H (34-104) U/L Total Protein 6.6 (6.4-8.9) gm/dL Albumin 3.8 (3.5-5.7) gm/dL Intake and Output 01/04/25 01/05/25 01/05/25 23:59 07:59 15:59 Intake Total 550 / 550 850 / 850 Output Total 150 / 150 Balance 550 / 550 700 / 700 Intake: IV 550 / 550 500 / 500 Sodium Chloride 0.9% 1,000 ml 500 / 500 500 / 500 500 ml @ 999 mls/hr IV .Q31M ONE Rx#:[id number] cefTRIAXone 1GM-*NS* 1 gm In 50 50 / 50 ml @ 100 mls/hr IV ONCE ONE Rx #:[id number] Oral 350 / 350 Output: Urine 150 / 150 Other: # Bowel Movements 0 Weight 63 kg 60.9 kg Date of Last Bowel Movement 01/04/25 01/04/25 Patient Weight 01/05/25 23:59 Weight 60.9 kg Lab 01/04/25 01/05/25 01/05/25 22:10 03:52 11:12 PT 18.9 H INR 1.7 APTT 40.4 H 54.6 H EKG Interpretations EKG Attestation EKG: I reviewed this ECG and interpreted as documented below: (Normal sinus rhythm with incomplete left bundle branch block) A&P - Cardiology (1) Non-ST elevation UT (NSTEMI): Code(s): I21.4 - Non-ST elevation (NSTEMI) myocardial infarction Plan Assessment 1. Worsening shortness of breath appears multifactorial related due to advancedlung disease, history of pulmonary sarcoidosis, acute on chronic systolic heart failure. Bedside hand-held echocardiogram suggest severe LV systolic dysfunction and worsening LVEF. 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 Heart cath back in 2016 showed no coronary artery disease 2. 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 Frail status and malnutrition 4. Atrial fibrillation maintaining sinus rhythm with dofetilide 5. Elevated troponin I suspect likely to be type II event but difficult to exclude progression of coronary artery disease his heart cath in 2016 was negative 6. Carotid disease 7. Anticoagulated Plan 1. Mild diuresis 2. Add low-dose valsartan 40 mg daily and monitor if blood pressure can tolerate 3. Start Jardiance next 24 hours 4. Full echo study 5. Patient had a previous heart cath and recent stress test both showed no evidence obstructive coronary artery disease Documented By: Chacho Burroughs MD 01/05/25 1334 Signed By: <Electronically signed by MD Chacho Burroughs> 01/05/25 3519 [facility] Work Phone: 1(853) 860-620108-28-2025 Progress note Author Chacho Burroughs [facility] Note Date/Time January 09, 2025 10 :47am [facility] [address] [place] [address] Cardiology Progress Note Signed Patient: Mary Mcadams MR#: [id number] : 1955 Acct:[id number] Age/Sex: 69 / M Adm Date: 5 Loc: Room: [address] [place] [address] Type: ADM IN Attending Dr: Jostin Larose DO Copies to: ~ Date of Service: 01/09/2025 Subjective Interval history: Patient feels better. Less short of breath. I reviewed personally his echocardiogram. I believe his EF around 25-30% with regional motion abnormalityhighly suggestive of Takotsubo syndrome Exam Physical Exam Vital Signs: Temp Pulse Resp BP Pulse Ox O2 Del Method O2 Flow Rate 97.4 F L 80 18 123/76 98 Nasal Cannula 3 01/09/25 07:44 01/09/25 08:37 01/09/25 08:37 01/09/25 07:44 01/09/25 07:44 01/09/25 08:00 01/09/25 08:00 FiO2 30 01/05/25 11:18 Eyes General: appearance normal, both eyes and all related structures Pupils: PERRL Neck Neck: normal visual inspection, supple and no lymphadenopathy noted Neck mass: No Thyroid: thyroid normal Carotids: normal carotid upstroke Chest Chest palpation & inspection: normal inspection of the chest Resp Effort & Inspection: labored and nasal flaring Auscultation: rales and rhonchi Cardio Palpation: normal PMI Rate: regular rate Rhythm: regular rhythm Heart Sounds: S1 normal, S2 normal and murmur systolic II/ GI Palpation: soft and no hepatosplenomegaly Percussion: normal to percussion Auscultation: normal bowel sounds Skin General: no rashes or lesions noted and dry skin Neuro General: patient alert, patient awake, patient oriented x3, tone normal and moves all extremities Objective Labs 01/07/25 04:50 01/09/25 04:10 Labs: Laboratory Results - last 24 hr 01/09/25 04:10 PHA Creatinine Clear 51.32 Sodium 137 Potassium 4.9 Chloride 104 Carbon Dioxide 26.9 Anion Gap 11.0 BUN 45 H Creatinine 1.15 Est GFR (CKD-EPI) > 60.0 Glucose 132 H Calcium 8.8 Magnesium 2.3 A&P - Cardiology (1) Non-ST elevation UT (NSTEMI): Code(s): I21.4 - Non-ST elevation (NSTEMI) myocardial infarction Plan Assessment 1. Worsening shortness of breath appears multifactorial related due to advancedlung disease, history of pulmonary sarcoidosis, acute on chronic systolic heart failure. Patient echocardiogram was interpreted as global LV hypokinesis with EF around 45%. Reviewing the echo indicate ejection fraction to be worse in therange of 25-30% with focal regional motion abnormality highly suggestive of Takotsubo syndrome. Taking into consideration the patient had a previous heart cath in 2016 which was negative and negative stress test last year I suspect theclinical picture is more consistent with Takotsubo/stress cardiomyopathy. Patient clinically better 2. 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 Frail status and malnutrition 4. Atrial fibrillation maintaining sinus rhythm with dofetilide 5. Elevated troponin I suspect likely to be type II event but difficult to exclude progression of coronary artery disease his heart cath in 2016 was negative he also had a stress test last year I suspect clinical picture to be consistent with stress cardiomyopathy 6. Carotid disease 7. Anticoagulated 8. Previous cardiac MRI was abnormal suspicious of cardiac involvement with sarcoidosis 9. Prolonged QTc interval appears to be ischemic related to recent development of Takotsubo cardiomyopathy Plan 1. Patient switch back to oral diuretics and medication 2. Continue valsartan and Fraxiga to optimize heart failure therapy 3. I reviewed his echo personally and I believe it is highly consistent with Takotsubo/stress cardiomyopathy with LVEF probably in the range 25-30% 5. I discussed with him invasive evaluation. Based on negative previous heart cath and recent stress test I discussed with patient invasive evaluation. The patient elected to continue with conservative management 6. EKG appears classic for Takotsubo with development with prolonged QTc interval. 7. Ambulate patient can be discharged home 8. Patient should be evaluated outpatient for possible need for AICD if LVEF does not improve 9. Follow-up outpatient to continue to optimize treatment for LV systolic dysfunction Documented By: Chacho Burroughs MD 01/09/25 1044 Signed By: <Electronically signed by MD Chacho Burroughs> 01/09/25 1047 [facility] Work Phone: 1(855) 835-450708-28-2025 [place] [id number] Cardiology Consult Note Signed with Addenda Patient: Mary Mcadams MR#: [id number] : 1955 Acct:[id number] Age/Sex: 69 / M Adm Date: 5 Loc: Room: [address] [place] [address] Type: ADM IN Attending Dr: Jostin Larose DO Copies to: DO Chacho Waller MD Shawn J Warner, DO~ ADDENDUM1 I reviewed patient complete echocardiogram. I disagree with the interpretation. Patient clearly have regional motion abnormality highly suspicious of Takotsubosyndrome. LVEF around 25-30% Addendum Documented By: MD Chacho Burroughs 01/09/25 1048 Addendum Signed By: 01/09/25 1048 Cardiology HPI History of Present Illness Consult Date: 01/05/25 Reason for Consult: Cardiac consultation requested for evaluation for increasing shortness of breathand elevated troponin HPI: Mr. Mcadams is a 69 year old male ischemic cardiomyopathy based on cardiac catheterization done back in 2015 that apparently had improved with medical therapy. History of atrial fibrillation antennae sinus rhythm with amiodarone. Back in 2016 patient had cardiac MRI that showed increase enhancement suggestiveof possible cardiac involvement of sarcoidosis. Patient had advanced COPD. Presented to the hospital with progressive shortness of breath and orthopnea. He denies chest pain. He was noted to have mildly elevated BNP and troponin. He denies chest pain. Patient report compliance with his medication. On my examination the patient appears to be in moderate respiratory distress with the useof accessory muscle. Bedside echocardiogram with hand-held probe demonstrate what appears to be severe LV systolic dysfunction Review of Systems Review of Systems All other systems reviewed & are negative unless noted below or in HPI Constitutional Constitutional: Reports fatigue and Reports weakness Eyes Eyes: Reports system reviewed and no additional complaints, except as documented ENT Ears, Nose, Mouth, and Throat: Reports system reviewed and no additional complaints, except as documented Cardiovascular Cardiovascular: Reports system reviewed and no additional complaints, except as documented, Reportsdyspnea on exertion, Reports leg edema and Reports orthopnea Respiratory Respiratory: Reports dyspnea on exertion Gastrointestinal Gastrointestinal: Reports system reviewed and no additional complaints, except as documented Genitourinary Genitourinary: Reports system reviewed and no additional complaints, except as documented Musculoskeletal Musculoskeletal: Reports system reviewed and no additional complaints, except asdocumented and Reports arthralgias Integumentary/Breasts Skin/Breast: Reports system reviewed and no additional complaints, except as documented Neurologic Neurologic: Reports system reviewed and no additional complaints, except as documented Psychiatric Psychiatric: Reports system reviewed and no additional complaints, except as documented Endocrine Endocrine: Reports system reviewed and no additional complaints, except as documented Hematologic/Lymphatic Hematologic/Lymphatic: Reports system reviewed and no additional complaints, except as documented Allergic/Immunologic Allergic/Immunologic: Reports system reviewed and no additional complaints, except as documented [facility] Medical History On home oxygen therapy Skin cancer removed from back H/O: gout History of shingles left eye Blind right eye Acute exacerbation of chronic obstructive pulmonary disease (COPD) Hypoxemia Bullous emphysema Benign prostatic hyperplasia with lower urinary tract symptoms Atrial fibrillation Pulmonary sarcoidosis Chronic respiratory failure with hypoxia Carotid stenosis, right CTA: 90% right ICA - 02/2024 Chronic HFrEF (heart failure with reduced ejection fraction) Echo: LVEF 45-50%, normal RV size/function, mild aortic root dilatation 4.0 cm - 02/2024 Nonischemic cardiomyopathy Echo: LVEF 45-50%, normal RV size/function, mild aortic root dilatation 4.0 cm - 02/2024 Hyponatremia Anemia Alcohol dependence Hypertension History of cardioversion Abdominal pain Cardiac sarcoidosis History of aspergilloma Acoustic neuroma Lumbar spondylosis Gastroesophageal reflux disease with esophagitis without hemorrhage Diverticulosis Personal history of colonic polyps Surgical History H/O colonoscopy (~10/2021) repeat 5 years History of arthroscopic knee surgery Family History Brother Heart disease Legacy FamHx Relation: Brother(s) Multiple sclerosis Father Cancer Legacy FamHx Problem: Diagnosed with Cancer Mother Diabetes Heart disease Myocardial infarction Hx of CABG Social History Smoking Status: Current every day smoker Tobacco Type: smokeless tobacco Substance Use Type: Alcohol Substance Abuse Comment: no alcohol past couple months; hx up to 4-6 beers daily Meds Medications and Allergies Allergies No Known Allergies Allergy (Verified 01/04/25 22:04) Home Medications finasteride 5 mg tablet 5 mg PO DAILY 09/08/23 [History Confirmed 01/05/25] latanoprost 0.005 % eye drops 1 drp Eye-Left HS 10/12/23 [History Confirmed 01/05/25] Oxygen 10/23/23 [History Confirmed 01/05/25] multivitamin with minerals 1 cap PO DAILY #90 caps 03/19/24 [Rx Confirmed 01/05/25] atorvastatin 40 mg tablet 40 mg PO QPM 30 days #30 tabs 03/20/24 [Rx Confirmed 01/05/25] furosemide 20 mg tablet 20 mg PO DAILY PRN edema 06/03/24 [History Confirmed 01/05/25] metoprolol succinate 25 mg tablet,extended release 24 hr 25 mg PO DAILY 06/03/24[History Confirmed 01/05/25] pantoprazole 40 mg tablet,delayed release 40 mg PO DAILY.AC.BKFAST #0 tabs 07/09/24 [Rx Confirmed 01/05/25] tamsulosin 0.4 mg capsule See Rx Instructions .Route .COMPLEX #60 caps 08/11/24 [Rx Confirmed 01/05/25] dofetilide 250 mcg capsule 250 mcg PO Q12H 11/11/24 [History Confirmed 01/05/25] prednisolone acetate 1 % eye drops,suspension 1 drp Eye-Left QID Shingles 11/11/24 [History Confirmed 01/05/25] potassium chloride 10 mEq tablet,extended release (Klor-Con) 10 meq PO DAILY 30 days #30 tabs 11/19/24 [Rx Confirmed 01/05/25] ipratropium 0.5 mg-albuterol 3 mg (2.5 mg base)/3 mL nebulization soln 3 ml inhalation QID PRN shortness of breath 01/02/25 [History Confirmed 01/05/25] rivaroxaban 20 mg tablet (Xarelto) 20 mg PO QHS 01/02/25 [History Confirmed 01/05/25] valacyclovir 1 gram tablet 1,000 mg PO BID shingles in eye 01/02/25 [History Confirmed 01/05/25] ofloxacin 0.3 % eye drops 1 drp Eye-Left QID 01/05/25 [History Confirmed 01/05/25] Exam Physical Exam Vital Signs: Temp Pulse Resp BP Pulse Ox O2 Del Method O2 Flow Rate 97.9 F 80 20 112/72 99 Nasal Cannula 4 01/05/25 11:12 01/05/25 13:25 01/05/25 13:25 01/05/25 11:12 01/05/25 11:12 01/05/25 11:12 01/05/25 11:12 FiO2 30 01/05/25 01:00 Const General: cooperative, acute distress, in distress moderate and ill appearing Nutritional Appearance: cachectic HEENT Head: atraumatic Mouth: oral mucosae normal Eyes General: appearance normal, both eyes and all related structures Pupils: PERRL Neck Neck: normal visual inspection, supple and no lymphadenopathy noted Neck mass: No Thyroid: thyroid normal Carotids: normal carotid upstroke Other: Jugular venous distention was noted Chest Chest palpation & inspection: normal inspection of the chest Resp Effort & Inspection: labored and nasal flaring Auscultation: rales and rhonchi Cardio Palpation: normal PMI Rate: regular rate Rhythm: regular rhythm Heart Sounds: S1 normal, S2 normal and murmur systolic II/ GI Palpation: soft and no hepatosplenomegaly Percussion: normal to percussion Auscultation: normal bowel sounds Skin General: no rashes or lesions noted and dry skin Neuro General: patient alert, patient awake, patient oriented x3, tone normal and moves all extremities Extrem General: full ROM and capillary refill normal Other: There is swelling of the right ankle Psych Mental Status: mental status grossly normal Results - Cardiology Labs 01/05/25 03:20 01/05/25 03:20 Lab results: Cardiac Enzymes 01/04/25 Range/Units 22:10 AST 21 (13-39) U/L Total Creatine Kinase 30 (30-223) U/L B-Natriuretic Peptide 268.0 H (5-100) pg/mL CBC 01/04/25 01/05/25 Range/Units 22:10 03:20 RBC 3.80 L 3.54 L (3.90-5.60) x10E6/uL Hgb 10.6 L 9.9 L (13.0-17.0) g/dL Hct 31.7 L 29.8 L (38.8-50.0) % Plt Count 281 274 (150-450) x10E3/uL Neut # (Auto) 7.9 H 8.1 H (1.8-7.7) x10E3/uL Lymph # (Auto) 1.2 0.4 L (1.00-4.8) x10E3/uL Dickinson # (Auto) 0.6 0.1 (0.0-0.8) x10E3/uL Eos # (Auto) 0.3 0.0 (0.0-0.45) x10E3/uL Baso # (Auto) 0.1 0.0 (0.0-0.2) x10E3/uL Comprehensive Metabolic Panel 01/04/25 01/05/25 Range/Units 22:10 03:20 Sodium 137 137 (136-145) mmol/L Potassium 3.6 3.8 (3.5-5.1) mmol/L Chloride 104 104 (98-107) mmol/L Carbon Dioxide 25.3 23.3 (21.0-31.0) mmol/L BUN 11 11 (7-25) mg/dL Creatinine 0.88 0.86 (0.70-1.30) mg/dL Glucose 155 H 165 H (70-100) mg/dL Calcium 8.8 8.7 (8.6-10.3) mg/dL AST 21 (13-39) U/L ALT 9 (7-52) U/L Alkaline Phosphatase 140 H (34-104) U/L Total Protein 6.6 (6.4-8.9) gm/dL Albumin 3.8 (3.5-5.7) gm/dL Intake and Output 01/04/25 01/05/25 01/05/25 23:59 07:59 15:59 Intake Total 550 / 550 850 / 850 Output Total 150 / 150 Balance 550 / 550 700 / 700 Intake: IV 550 / 550 500 / 500 Sodium Chloride 0.9% 1,000 ml 500 / 500 500 / 500 500 ml @ 999 mls/hr IV .Q31M ONE Rx#:[id number] cefTRIAXone 1GM-*NS* 1 gm In 50 50 / 50 ml @ 100 mls/hr IV ONCE ONE Rx #:[id number] Oral 350 / 350 Output: Urine 150 / 150 Other: # Bowel Movements 0 Weight 63 kg 60.9 kg Date of Last Bowel Movement 01/04/25 01/04/25 Patient Weight 01/05/25 23:59 Weight 60.9 kg Lab 01/04/25 01/05/25 01/05/25 22:10 03:52 11:12 PT 18.9 H INR 1.7 APTT 40.4 H 54.6 H EKG Interpretations EKG Attestation EKG: I reviewed this ECG and interpreted as documented below: (Normal sinus rhythm withincomplete left bundle branch block) A&P - Cardiology (1) Non-ST elevation UT (NSTEMI): Code(s): I21.4 - Non-ST elevation (NSTEMI) myocardial infarction Plan Assessment 1. Worsening shortness of breath appears multifactorial related due to advancedlung disease, history of pulmonary sarcoidosis, acute on chronic systolic heart failure. Bedside hand-held echocardiogram suggest severe LV systolic dysfunction and worsening LVEF. 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 Heart cath back in 2016 showed no coronary artery disease 2. 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 Frail status and malnutrition 4. Atrial fibrillation maintaining sinus rhythm with dofetilide 5. Elevated troponin I suspect likely to be type II event but difficult to exclude progression of coronary artery disease his heart cath in 2016 was negative 6. Carotid disease 7. Anticoagulated Plan 1. Mild diuresis 2. Add low-dose valsartan 40 mg daily and monitor if blood pressure can tolerate 3. Start Jardiance next 24 hours 4. Full echo study 5. Patient had a previous heart cath and recent stress test both showed no evidence obstructive coronary artery disease Documented By: Chacho Burroughs MD 01/05/25 1374 Signed By: 01/05/25 7390 [facility]08-28-20[place] [address] Cardiology Progress Note Signed Patient: Mary Mcadams MR#: [id number] : 1955 Acct:[id number] Age/Sex: 69 / M Adm Date: 5 Loc: Room: [address] [place] [address] Type: ADM IN Attending Dr: Jostin Larose DO Copies to: ~ Date of Service: 01/09/2025 Subjective Interval history: Patient feels better. Less short of breath. I reviewed personally his echocardiogram. I believe hisEF around 25-30% with regional motion abnormalityhighly suggestive of Takotsubo syndrome Exam Physical Exam Vital Signs: Temp Pulse Resp BP Pulse Ox O2 Del Method O2 Flow Rate 97.4 F L 80 18 123/76 98 Nasal Cannula 3 01/09/25 07:44 01/09/25 08:37 01/09/25 08:37 01/09/25 07:44 01/09/25 07:44 01/09/25 08:00 01/09/25 08:00 FiO2 30 01/05/25 11:18 Eyes General: appearance normal, both eyes and all related structures Pupils: PERRL Neck Neck: normal visual inspection, supple and no lymphadenopathy noted Neck mass: No Thyroid: thyroid normal Carotids: normal carotid upstroke Chest Chest palpation & inspection: normal inspection of the chest Resp Effort & Inspection: labored and nasal flaring Auscultation: rales and rhonchi Cardio Palpation: normal PMI Rate: regular rate Rhythm: regular rhythm Heart Sounds: S1 normal, S2 normal and murmur systolic II/ GI Palpation: soft and no hepatosplenomegaly Percussion: normal to percussion Auscultation: normal bowel sounds Skin General: no rashes or lesions noted and dry skin Neuro General: patient alert, patient awake, patient oriented x3, tone normal and moves all extremities Objective Labs 01/07/25 04:50 01/09/25 04:10 Labs: Laboratory Results - last 24 hr 01/09/25 04:10 PHA Creatinine Clear 51.32 Sodium 137 Potassium 4.9 Chloride 104 Carbon Dioxide 26.9 Anion Gap 11.0 BUN 45 H Creatinine 1.15 Est GFR (CKD-EPI) > 60.0 Glucose 132 H Calcium 8.8 Magnesium 2.3 A&P - Cardiology (1) Non-ST elevation UT (NSTEMI): Code(s): I21.4 - Non-ST elevation (NSTEMI) myocardial infarction Plan Assessment 1. Worsening shortness of breath appears multifactorial related due to advancedlung disease, history of pulmonary sarcoidosis, acute on chronic systolic heart failure. Patient echocardiogram was interpreted as global LV hypokinesis with EF around 45%. Reviewing the echo indicate ejection fraction to be worse in therange of 25-30% with focal regional motion abnormality highly suggestive of Takotsubo syndrome. Taking into consideration the patient had a previous heart cath in 2016 which was negative and negative stress test last year I suspect theclinical picture is more consistent with Takotsubo/stress cardiomyopathy. Patient clinically better 2. 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 Frail status and malnutrition 4. Atrial fibrillation maintaining sinus rhythm with dofetilide 5. Elevated troponin I suspect likely to be type II event but difficult to exclude progression of coronary artery disease his heart cath in 2016 was negative he also had a stress test last year I suspect clinical picture to be consistent with stress cardiomyopathy 6. Carotid disease 7. Anticoagulated 8. Previous cardiac MRI was abnormal suspicious of cardiac involvement with sarcoidosis 9. Prolonged QTc interval appears to be ischemic related to recent development of Takotsubo cardiomyopathy Plan 1. Patient switch back to oral diuretics and medication 2. Continue valsartan and Fraxiga to optimize heart failure therapy 3. I reviewed his echo personally and I believe it is highly consistent with Takotsubo/stress cardiomyopathy with LVEF probably in the range 25-30% 5. I discussed with him invasive evaluation. Based on negative previous heart cath and recent stress test I discussed with patient invasive evaluation. The patient elected to continue with conservative management 6. EKG appears classic for Takotsubo with development with prolonged QTc interval. 7. Ambulate patient can be discharged home 8. Patient should be evaluated outpatient for possible need for AICD if LVEF does not improve 9. Follow-up outpatient to continue to optimize treatment for LV systolic dysfunction Documented By: Chacho Burroughs MD 01/09/25 1044 Signed By: 01/09/25 1047 [facility]08-27-2025 Progress note Author Chacho Burroughs [facility] Note Date/Time January 08, 2025 4: 24pm [facility] [address] [place] [address] Cardiology Progress Note Signed Patient: Mary Mcadams MR#: [id number] : 1955 Acct:[id number] Age/Sex: 69 / M Adm Date: 5 Loc: Room: [address] [place] [address] Type: ADM IN Attending Dr: Jostin Larose DO Copies to: ~ Date of Service: 01/08/2025 Subjective Interval history: Patient feels better. Less short of breath. I reviewed personally his echocardiogram. I believe his EF around 25-30% with regional motion abnormalityhighly suggestive of Takotsubo syndrome Exam Physical Exam Vital Signs: Temp Pulse Resp BP Pulse Ox O2 Del Method O2 Flow Rate 97.7 F 95 20 104/59 L 98 Nasal Cannula 3 01/08/25 11:19 01/08/25 11:19 01/08/25 11:19 01/08/25 11:19 01/08/25 11:19 01/08/25 11:19 01/08/25 11:19 FiO2 30 01/05/25 11:18 Eyes General: appearance normal, both eyes and all related structures Pupils: PERRL Neck Neck: normal visual inspection, supple and no lymphadenopathy noted Neck mass: No Thyroid: thyroid normal Carotids: normal carotid upstroke Chest Chest palpation & inspection: normal inspection of the chest Resp Effort & Inspection: labored and nasal flaring Auscultation: rales and rhonchi Cardio Palpation: normal PMI Rate: regular rate Rhythm: regular rhythm Heart Sounds: S1 normal, S2 normal and murmur systolic II/ Neuro General: patient alert, patient awake, patient oriented x3, tone normal and moves all extremities Extrem General: full ROM and capillary refill normal Objective Labs 01/07/25 04:50 01/08/25 04:28 Labs: Laboratory Results - last 24 hr 01/08/25 04:28 PHA Creatinine Clear 45.62 Sodium 135 L Potassium 4.4 Chloride 102 Carbon Dioxide 27.4 Anion Gap 10.0 BUN 35 H Creatinine 1.30 Est GFR (CKD-EPI) 59.099 Glucose 142 H Calcium 8.8 Magnesium 1.8 L A&P - Cardiology (1) Non-ST elevation UT (NSTEMI): Code(s): I21.4 - Non-ST elevation (NSTEMI) myocardial infarction Plan Assessment 1. Worsening shortness of breath appears multifactorial related due to advancedlung disease, history of pulmonary sarcoidosis, acute on chronic systolic heart failure. Patient echocardiogram was interpreted as global LV hypokinesis with EF around 45%. Reviewing the echo indicate ejection fraction to be worse in therange of 25-30% with focal regional motion abnormality highly suggestive of Takotsubo syndrome. Taking into consideration the patient had a previous heart cath in 2016 which was negative and negative stress test last year I suspect theclinical picture is more consistent with Takotsubo/stress cardiomyopathy. Patient clinically better 2. 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 Frail status and malnutrition 4. Atrial fibrillation maintaining sinus rhythm with dofetilide 5. Elevated troponin I suspect likely to be type II event but difficult to exclude progression of coronary artery disease his heart cath in 2016 was negative he also had a stress test last year I suspect clinical picture to be consistent with stress cardiomyopathy 6. Carotid disease 7. Anticoagulated 8. Previous cardiac MRI was abnormal suspicious of cardiac involvement with sarcoidosis Plan 1. Patient switch back to oral diuretics and medication 2. Continue valsartan and Fraxiga to optimize heart failure therapy 3. I reviewed his echo personally and I believe it is highly consistent with Takotsubo/stress cardiomyopathy with LVEF probably in the range 25-30% 5. I discussed with him invasive evaluation. Based on negative previous heart cath and recent stress test the patient elected to continue with conservative management 6. EKG appears classic for Takotsubo with development with prolonged QTc interval. 7. Will add magnesium recheck EKG in a.m. Documented By: Chacho Burroughs MD 01/08/25 1141 Signed By: <Electronically signed by MD Chacho Burroughs> 01/08/25 0736 [facility] Work Phone: 1(812) 541-903508-27-2025 [place] [address] Cardiology Progress Note Signed Patient: Mary Mcadams MR#: [id number] : 1955 Acct:[id number] Age/Sex: 69 / M Adm Date: 5 Loc: 4 Room: [address] [place] [address] Type: ADM IN Attending Dr: Jostin Larose DO Copies to: ~ Date of Service: 01/08/2025 Subjective Interval history: Patient feels better. Less short of breath. I reviewed personally his echocardiogram. I believe hisEF around 25-30% with regional motion abnormalityhighly suggestive of Takotsubo syndrome Exam Physical Exam Vital Signs: Temp Pulse Resp BP Pulse Ox O2 Del Method O2 Flow Rate 97.7 F 95 20 104/59 L 98 Nasal Cannula 3 01/08/25 11:19 01/08/25 11:19 01/08/25 11:19 01/08/25 11:19 01/08/25 11:19 01/08/25 11:19 01/08/25 11:19 FiO2 30 01/05/25 11:18 Eyes General: appearance normal, both eyes and all related structures Pupils: PERRL Neck Neck: normal visual inspection, supple and no lymphadenopathy noted Neck mass: No Thyroid: thyroid normal Carotids: normal carotid upstroke Chest Chest palpation & inspection: normal inspection of the chest Resp Effort & Inspection: labored and nasal flaring Auscultation: rales and rhonchi Cardio Palpation: normal PMI Rate: regular rate Rhythm: regular rhythm Heart Sounds: S1 normal, S2 normal and murmur systolic II/ Neuro General: patient alert, patient awake, patient oriented x3, tone normal and moves all extremities Extrem General: full ROM and capillary refill normal Objective Labs 01/07/25 04:50 01/08/25 04:28 Labs: Laboratory Results - last 24 hr 01/08/25 04:28 PHA Creatinine Clear 45.62 Sodium 135 L Potassium 4.4 Chloride 102 Carbon Dioxide 27.4 Anion Gap 10.0 BUN 35 H Creatinine 1.30 Est GFR (CKD-EPI) 59.099 Glucose 142 H Calcium 8.8 Magnesium 1.8 L A&P - Cardiology (1) Non-ST elevation UT (NSTEMI): Code(s): I21.4 - Non-ST elevation (NSTEMI) myocardial infarction Plan Assessment 1. Worsening shortness of breath appears multifactorial related due to advancedlung disease, history of pulmonary sarcoidosis, acute on chronic systolic heart failure. Patient echocardiogram was interpreted as global LV hypokinesis with EF around 45%. Reviewing the echo indicate ejection fraction to be worse in therange of 25-30% with focal regional motion abnormality highly suggestive of Takotsubo syndrome. Taking into consideration the patient had a previous heart cath in 2016 which was negative and negative stress test last year I suspect theclinical picture is more consistent with Takotsubo/stress cardiomyopathy. Patient clinically better 2. 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 Frail status and malnutrition 4. Atrial fibrillation maintaining sinus rhythm with dofetilide 5. Elevated troponin I suspect likely to be type II event but difficult to exclude progression of coronary artery disease his heart cath in 2016 was negative he also had a stress test last year I suspect clinical picture to be consistent with stress cardiomyopathy 6. Carotid disease 7. Anticoagulated 8. Previous cardiac MRI was abnormal suspicious of cardiac involvement with sarcoidosis Plan 1. Patient switch back to oral diuretics and medication 2. Continue valsartan and Fraxiga to optimize heart failure therapy 3. I reviewed his echo personally and I believe it is highly consistent with Takotsubo/stress cardiomyopathy with LVEF probably in the range 25-30% 5. I discussed with him invasive evaluation. Based on negative previous heart cath and recent stress test the patient elected to continue with conservative management 6. EKG appears classic for Takotsubo with development with prolonged QTc interval. 7. Will add magnesium recheck EKG in a.m. Documented By: Chacho Burroughs MD 01/08/25 1141 Signed By: 01/08/25 1624 [facility]08-27-2025 Progress note Author Jostin Larose [facility] Note Date/Time January 08, 2025 12 :58pm [facility] [address] [place] [address] Hospitalist Progress Note Signed Patient: Mary Mcadams MR#: [id number] : 1955 Acct:[id number] Age/Sex: 69 / M Adm Date: 5 Loc: Room: [address] [place] [address] Type: ADM IN Attending Dr: Jostin Larose DO Copies to: ~ Date of Service: 01/08/2025 Subjective Subjective Narrative: Seen and evaluated this morning, he appears better on present to the room, his voice is little deeper, he says 1 or genetic. He does endorse feeling better though he was still lightheaded while standing up. EKG reviewed, his QTc is still quite prolonged. Exam Physical Exam Vital Signs: Temp Pulse Resp BP Pulse Ox O2 Del Method O2 Flow Rate 97.7 F 94 20 104/59 L 98 Nasal Cannula 3 01/08/25 11:19 01/08/25 12:16 01/08/25 12:16 01/08/25 11:19 01/08/25 11:19 01/08/25 11:19 01/08/25 11:19 FiO2 30 01/05/25 11:18 Narrative: General: Awake alert, no acute distress HEENT: head atraumatic, normocephalic, moist mucous membranes Neck: supple no masses, no lymphadenopathy CVS: regular rate and rhythm, no murmurs or gallops Respiratory: Lungs are CTAB. GI: soft, nondistended, nontender, positive bowel sounds with no organomegaly Extremity: moves all extremities, no restrictions of movements, no calf tenderness, no edema Neuro: AOx3, CN II-VII intact. Moves all extremities in all planes of motion. Skin: dry, intact no rashes or lesions Objective Lab Results 01/07/25 04:50 01/08/25 04:28 Meds Allergies and Active Meds Allergies No Known Allergies Allergy (Verified 01/04/25 22:04) Active Meds: Active Medications Generic Name Dose Route Start Last Admin Trade Name Freq PRN Reason Stop Dose Admin Acetaminophen 650 mg 01/05/25 02:39 01/05/25 21:30 Acetaminophen 325 Mg Tablet PO 01/05/26 02:38 650 mg Q4H PRN Administration Pain Scale 1 - 5 Albuterol 2.5 mg 01/05/25 02:39 Albuterol Neb 2.5 Mg/3 Ml Vial.Neb INHALATION 01/05/26 02:38 Q2H PRN Shortness Of Breath Albuterol/Ipratropium 3 ml 01/05/25 08:00 01/08/25 12:16 Ipratropium/Albuterol 0.5-3 Mg 3 Ml Ampul.Neb INHALATION 01/05/26 07:59 3 ml QID.RESP ALEX Administration Aspirin 81 mg 01/05/25 09:00 01/08/25 08:09 Aspirin 81 Mg Tablet.Dr PO 01/05/26 08:59 81 mg DAILY ALEX Administration Atorvastatin Calcium 40 mg 01/05/25 21:00 01/07/25 21:52 Atorvastatin 40 Mg Tablet PO 01/05/26 20:59 40 mg QPM ALEX Administration Ciprofloxacin HCl 1 drops 01/05/25 09:00 01/08/25 08:06 Ciprofloxacin 0.3% Op Soln 100 Drops/5 Ml Bottle EYE-LEFT 1 drops QID ALEX Administration Dapagliflozin 10 mg 01/05/25 14:05 01/08/25 08:08 Dapagliflozin 10 Mg Tablet PO 01/05/26 14:04 10 mg DAILY ALEX Administration Docusate Sodium 200 mg 01/05/25 02:39 Docusate 100 Mg Capsule PO 01/05/26 02:38 BID PRN Constipation Dofetilide 250 mcg 01/05/25 09:00 01/08/25 08:09 Dofetilide 250 Mcg Capsule PO 01/05/26 08:59 250 mcg BID ALEX Administration Finasteride 5 mg 01/05/25 09:00 01/08/25 08:08 Finasteride 5 Mg Tablet PO 01/05/26 08:59 5 mg DAILY ALEX Administration Furosemide 40 mg 01/08/25 08:00 01/08/25 08:08 Furosemide 40 Mg Tablet PO 01/08/26 07:59 40 mg DAILY.8A ALEX Administration Guaifenesin 1,200 mg 01/05/25 09:00 01/08/25 08:09 Guaifenesin 600 Mg Tab.Er.12h PO 01/05/26 08:59 1,200 mg BID ALEX Administration Magnesium Sulfate 2 gm in 50 mls @ 25 mls/hr 01/08/25 11:48 Magnesium Sulf 2gm-*Swfi* IV 01/08/25 13:47 ONCE ONE Latanoprost 1 drops 01/05/25 22:00 01/07/25 21:55 Latanoprost 0.005% Op Soln 50 Drops/2.5 Ml Bottle EYE-LEFT 01/05/26 21:59 1drops HS ALEX Administration Magnesium Oxide 400 mg 01/09/25 09:00 Magnesium Oxide 400 Mg Tablet PO 01/09/26 08:59 DAILY ALEX Methylprednisolone Sodium Succinate 40 mg 01/07/25 10:30 01/08/25 08:09 Methylprednisolone Sod Succ/Pf 40 Mg/Ml (1ml) Vial IV-PUSH 01/07/26 10:29 40 mg Q12HR ALEX Administration Metoprolol Succinate 25 mg 01/05/25 09:00 01/08/25 08:09 Metoprolol Succinate 25 Mg Tab.Er.24h PO 01/05/26 08:59 25 mg DAILY ALEX Administration Pantoprazole Sodium 40 mg 01/05/25 07:30 01/08/25 06:24 Pantoprazole 40 Mg Tablet.Dr PO 01/05/26 07:29 40 mg DAILY.AC.BKFAST ALEX Administration Prednisolone Acetate 1 drops 01/05/25 09:00 01/08/25 08:06 Prednisolone Ac 1% Op Susp 100 Drops/5 Ml Bottle EYE-LEFT 01/05/26 08:59 1 drops QID ALEX Administration Rivaroxaban 20 mg 01/06/25 13:00 01/07/25 17:15 Rivaroxaban 20 Mg Tablet PO 01/06/26 12:59 20 mg DAILY.WITH.SUPPER ALEX Administration Sodium Chloride 0 ml 01/04/25 22:02 01/07/25 21:53 Sodium Chloride 0.9 % 10 Ml Syringe IV-PUSH 01/04/26 22:01 10 ml PRN PRN Administration Flush Spironolactone 12.5 mg 01/06/25 09:00 01/08/25 08:08 Spironolactone 12.5 Mg Tablet PO 01/06/26 08:59 12.5 mg DAILY ALEX Administration Tamsulosin HCl 0.4 mg 01/05/25 09:00 01/08/25 08:08 Tamsulosin 0.4 Mg Cap.Er.24h PO 01/05/26 08:59 0.4 mg BID ALEX Administration Valacyclovir HCl 1,000 mg 01/05/25 09:00 01/08/25 08:08 Valacyclovir 500 Mg Tablet PO 1,000 mg BID ALEX Administration Valsartan 40 mg 01/06/25 09:00 01/08/25 08:09 Valsartan 40 Mg Tablet PO 01/06/26 08:59 40 mg DAILY ALEX Administration A&P - Hospitalist Assessment/Plan (1) Takotsubo cardiomyopathy: Plan: ? Echocardiogram read with an EF of 45 to 50% though this may be overestimation,does appear to have Takotsubo appearance on images ? Agree with switching to oral Lasix starting today ? Continue valsartan, Farxiga, metoprolol, Aldactone ? Continue to work with PT OT ? Orthostatics negative ?His QT is still prolonged, will replace with magnesium and initiate oral magnesium daily. (2) Non-ST elevation UT (NSTEMI): Plan: Secondary to CHF exacerbation (3) History of sarcoidosis: Plan: Likely component ? Will order DuoNebs today (4) Acute on chronic hypoxic respiratory failure: Plan: Continue to titrate oxygen as able to Plan ? DVT prophylaxis addressed ? Regular diet ? Full code Documented By: Jostin Larose DO 01/08/25 1255 Signed By: <Electronically signed by Jostin Larose DO> 01/08/25 1258 [facility] Work Phone: [phone]) 716-489708-27-2025 [place] [address] Hospitalist Progress Note Signed Patient: Mary Mcadams MR#: [id number] : 1955 Acct:[id number] Age/Sex: 69 / M Adm Date: 5 Loc: Room: [address] [place] [address] Type: ADM IN Attending Dr: Jostin Larose DO Copies to: ~ Date of Service: 01/08/2025 Subjective Subjective Narrative: Seen and evaluated this morning, he appears better on present to the room, his voice is little deeper, he says 1 or genetic. He does endorse feeling better though he was still lightheaded while standing up. EKG reviewed, his QTc is still quite prolonged. Exam Physical Exam Vital Signs: Temp Pulse Resp BP Pulse Ox O2 Del Method O2 Flow Rate 97.7 F 94 20 104/59 L 98 Nasal Cannula 3 01/08/25 11:19 01/08/25 12:16 01/08/25 12:16 01/08/25 11:19 01/08/25 11:19 01/08/25 11:19 01/08/25 11:19 FiO2 30 01/05/25 11:18 Narrative: General: Awake alert, no acute distress HEENT: head atraumatic, normocephalic, moist mucous membranes Neck: supple no masses, no lymphadenopathy CVS: regular rate and rhythm, no murmurs or gallops Respiratory: Lungs are CTAB. GI: soft, nondistended, nontender, positive bowel sounds with no organomegaly Extremity: moves all extremities, no restrictions of movements, no calf tenderness, no edema Neuro: AOx3, CN II-VII intact. Moves all extremities in all planes of motion. Skin: dry, intact no rashes or lesions Objective Lab Results 01/07/25 04:50 01/08/25 04:28 Meds Allergies and Active Meds Allergies No Known Allergies Allergy (Verified 01/04/25 22:04) Active Meds: Active Medications Generic Name Dose Route Start Last Admin Trade Name Freq PRN Reason Stop Dose Admin Acetaminophen 650 mg 01/05/25 02:39 01/05/25 21:30 Acetaminophen 325 Mg Tablet PO 01/05/26 02:38 650 mg Q4H PRN Administration Pain Scale 1 - 5 Albuterol 2.5 mg 01/05/25 02:39 Albuterol Neb 2.5 Mg/3 Ml Vial.Neb INHALATION 01/05/26 02:38 Q2H PRN Shortness Of Breath Albuterol/Ipratropium 3 ml 01/05/25 08:00 01/08/25 12:16 Ipratropium/Albuterol 0.5-3 Mg 3 Ml Ampul.Neb INHALATION 01/05/26 07:59 3 ml QID.RESP ALEX Administration Aspirin 81 mg 01/05/25 09:00 01/08/25 08:09 Aspirin 81 Mg Tablet. PO 01/05/26 08:59 81 mg DAILY ALEX Administration Atorvastatin Calcium 40 mg 01/05/25 21:00 01/07/25 21:52 Atorvastatin 40 Mg Tablet PO 01/05/26 20:59 40 mg QPM ALEX Administration Ciprofloxacin HCl 1 drops 01/05/25 09:00 01/08/25 08:06 Ciprofloxacin 0.3% Op Soln 100 Drops/5 Ml Bottle EYE-LEFT 1 drops QID ALEX Administration Dapagliflozin 10 mg 01/05/25 14:05 01/08/25 08:08 Dapagliflozin 10 Mg Tablet PO 01/05/26 14:04 10 mg DAILY ALEX Administration Docusate Sodium 200 mg 01/05/25 02:39 Docusate 100 Mg Capsule PO 01/05/26 02:38 BID PRN Constipation Dofetilide 250 mcg 01/05/25 09:00 01/08/25 08:09 Dofetilide 250 Mcg Capsule PO 01/05/26 08:59 250 mcg BID ALEX Administration Finasteride 5 mg 01/05/25 09:00 01/08/25 08:08 Finasteride 5 Mg Tablet PO 01/05/26 08:59 5 mg DAILY ALEX Administration Furosemide 40 mg 01/08/25 08:00 01/08/25 08:08 Furosemide 40 Mg Tablet PO 01/08/26 07:59 40 mg DAILY.8A ALEX Administration Guaifenesin 1,200 mg 01/05/25 09:00 01/08/25 08:09 Guaifenesin 600 Mg Tab.Er.12h PO 01/05/26 08:59 1,200 mg BID ALEX Administration Magnesium Sulfate 2 gm in 50 mls @ 25 mls/hr 01/08/25 11:48 Magnesium Sulf 2gm-*Swfi* IV 01/08/25 13:47 ONCE ONE Latanoprost 1 drops 01/05/25 22:00 01/07/25 21:55 Latanoprost 0.005% Op Soln 50 Drops/2.5 Ml Bottle EYE-LEFT 01/05/26 21:59 1drops HS ALEX Administration Magnesium Oxide 400 mg 01/09/25 09:00 Magnesium Oxide 400 Mg Tablet PO 01/09/26 08:59 DAILY ALEX Methylprednisolone Sodium Succinate 40 mg 01/07/25 10:30 01/08/25 08:09 Methylprednisolone Sod Succ/Pf 40 Mg/Ml (1ml) Vial IV-PUSH 01/07/26 10:29 40 mg Q12HR ALEX Administration Metoprolol Succinate 25 mg 01/05/25 09:00 01/08/25 08:09 Metoprolol Succinate 25 Mg Tab.Er.24h PO 01/05/26 08:59 25 mg DAILY ALEX Administration Pantoprazole Sodium 40 mg 01/05/25 07:30 01/08/25 06:24 Pantoprazole 40 Mg Tablet.Dr PO 01/05/26 07:29 40 mg DAILY.AC.BKFAST ALEX Administration Prednisolone Acetate 1 drops 01/05/25 09:00 01/08/25 08:06 Prednisolone Ac 1% Op Susp 100 Drops/5 Ml Bottle EYE-LEFT 01/05/26 08:59 1 drops QID ALEX Administration Rivaroxaban 20 mg 01/06/25 13:00 01/07/25 17:15 Rivaroxaban 20 Mg Tablet PO 01/06/26 12:59 20 mg DAILY.WITH.SUPPER ALEX Administration Sodium Chloride 0 ml 01/04/25 22:02 01/07/25 21:53 Sodium Chloride 0.9 % 10 Ml Syringe IV-PUSH 01/04/26 22:01 10 ml PRN PRN Administration Flush Spironolactone 12.5 mg 01/06/25 09:00 01/08/25 08:08 Spironolactone 12.5 Mg Tablet PO 01/06/26 08:59 12.5 mg DAILY ALEX Administration Tamsulosin HCl 0.4 mg 01/05/25 09:00 01/08/25 08:08 Tamsulosin 0.4 Mg Cap.Er.24h PO 01/05/26 08:59 0.4 mg BID ALEX Administration Valacyclovir HCl 1,000 mg 01/05/25 09:00 01/08/25 08:08 Valacyclovir 500 Mg Tablet PO 1,000 mg BID ALEX Administration Valsartan 40 mg 01/06/25 09:00 01/08/25 08:09 Valsartan 40 Mg Tablet PO 01/06/26 08:59 40 mg DAILY ALEX Administration A&P - Hospitalist Assessment/Plan (1) Takotsubo cardiomyopathy: Plan: ? Echocardiogram read with an EF of 45 to 50% though this may be overestimation,does appear to haveTakotsubo appearance on images ? Agree with switching to oral Lasix starting today ? Continue valsartan, Farxiga, metoprolol, Aldactone ? Continue to work with PT OT ? Orthostatics negative ?His QT is still prolonged, will replace with magnesium and initiate oral magnesium daily. (2) Non-ST elevation UT (NSTEMI): Plan: Secondary to CHF exacerbation (3) History of sarcoidosis: Plan: Likely component ? Will order DuoNebs today (4) Acute on chronic hypoxic respiratory failure: Plan: Continue to titrate oxygen as able to Plan ? DVT prophylaxis addressed ? Regular diet ? Full code Documented By: Jostin Larose DO 01/08/25 1251 Signed By: 01/08/25 1250 [facility]08-26-2025 Progress note Author Chacho Burroughs [facility] Note Date/Time January 07, 2025 10 :37am [facility] [address] [place] [address] Cardiology Progress Note Signed Patient: Mary Mcadams MR#: [id number] : 1955 Acct:[id number] Age/Sex: 69 / M Adm Date: 5 Loc: Room: [address] [place] [address] Type: ADM IN Attending Dr: Jostin Larose DO Copies to: ~ Date of Service: 01/07/2025 Subjective Interval history: Patient feels better. Less short of breath. I reviewed personally his echocardiogram. I believe his EF around 25-30% with regional motion abnormalityhighly suggestive of Takotsubo syndrome Exam Physical Exam Vital Signs: Temp Pulse Resp BP Pulse Ox O2 Del Method O2 Flow Rate 97.7 F 80 20 107/70 96 Nasal Cannula 4 01/07/25 07:56 01/07/25 08:34 01/07/25 08:34 01/07/25 07:56 01/07/25 08:25 01/07/25 08:25 01/07/25 08:25 FiO2 30 01/05/25 11:18 Eyes General: appearance normal, both eyes and all related structures Pupils: PERRL Neck Neck: normal visual inspection, supple and no lymphadenopathy noted Neck mass: No Thyroid: thyroid normal Carotids: normal carotid upstroke Chest Chest palpation & inspection: normal inspection of the chest Resp Effort & Inspection: labored and nasal flaring Auscultation: rales and rhonchi Cardio Palpation: normal PMI Rate: regular rate Rhythm: regular rhythm Heart Sounds: S1 normal, S2 normal and murmur systolic II/ GI Palpation: soft and no hepatosplenomegaly Percussion: normal to percussion Auscultation: normal bowel sounds Skin General: no rashes or lesions noted and dry skin Extrem General: full ROM and capillary refill normal Objective Labs 01/07/25 04:50 01/07/25 04:50 Labs: Laboratory Results - last 24 hr 01/07/25 04:50 Corrected WBC 9.4 RBC 3.23 L Hgb 9.1 L Hct 26.8 L MCV 82.9 L MCH 28.2 MCHC 34.0 RDW 18.1 H Plt Count 265 MPV 7.8 PHA Creatinine Clear 60.71 Sodium 138 Potassium 4.0 Chloride 106 Carbon Dioxide 27.0 Anion Gap 9.0 BUN 29 H Creatinine 0.98 Est GFR (CKD-EPI) > 60.0 Glucose 94 Calcium 8.7 Magnesium 1.7 L A&P - Cardiology (1) Non-ST elevation UT (NSTEMI): Code(s): I21.4 - Non-ST elevation (NSTEMI) myocardial infarction Plan Assessment 1. Worsening shortness of breath appears multifactorial related due to advancedlung disease, history of pulmonary sarcoidosis, acute on chronic systolic heart failure. Patient echocardiogram was interpreted as global LV hypokinesis with EF around 45%. Reviewing the echo indicate ejection fraction to be worse in therange of 25-30% with focal regional motion abnormality highly suggestive of Takotsubo syndrome. Taking into consideration the patient had a previous heart cath in 2016 which was negative and negative stress test last year I suspect theclinical picture is more consistent with Takotsubo/stress cardiomyopathy. Patient clinically better 2. 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 Frail status and malnutrition 4. Atrial fibrillation maintaining sinus rhythm with dofetilide 5. Elevated troponin I suspect likely to be type II event but difficult to exclude progression of coronary artery disease his heart cath in 2016 was negative he also had a stress test last year I suspect clinical picture to be consistent with stress cardiomyopathy 6. Carotid disease 7. Anticoagulated 8. Previous cardiac MRI was abnormal suspicious of cardiac involvement with sarcoidosis Plan 1. Patient can be switched to oral diuretics 2. We added valsartan and Fraxiga to optimize heart failure therapy 3. I reviewed his echo personally and as dictated above I believe it is highly consistent with Takotsubo/stress cardiomyopathy 5. I discussed with him invasive evaluation. Based on negative previous heart cath and recent stress test the patient elected to continue with conservative management 6. Will check EKG Documented By: Chacho Burroughs MD 01/07/25 1031 Signed By: <Electronically signed by MD Chacho Burroughs> 01/07/25 1037 [facility] Work Phone: 1(850) 850-339008-26-2025 Progress note Author Jostin Larose [facility] Note Date/Time January 07, 2025 10 :09am [facility] [address] [place] [address] Hospitalist Progress Note Signed Patient: Mary Mcadams MR#: [id number] : 1955 Acct:[id number] Age/Sex: 69 / M Adm Date: 5 Loc: Room: [address] [place] [address] Type: ADM IN Attending Dr: Jostin Larose DO Copies to: ~ Date of Service: 01/07/2025 Subjective Subjective Narrative: Seen and evaluated this morning, his orthostatic vitals were negative yesterday though he did feel symptomatic with standing up despite his blood pressure not having a large decrease. He has not really been out of bed much, continue to work with PT OT. Patient was agreeable. Exam Physical Exam Vital Signs: Temp Pulse Resp BP Pulse Ox O2 Del Method O2 Flow Rate 97.7 F 80 20 107/70 96 Nasal Cannula 4 01/07/25 07:56 01/07/25 08:34 01/07/25 08:34 01/07/25 07:56 01/07/25 08:25 01/07/25 08:25 01/07/25 08:25 FiO2 30 01/05/25 11:18 Narrative: General: Awake alert, no acute distress HEENT: head atraumatic, normocephalic, moist mucous membranes Neck: supple no masses, no lymphadenopathy CVS: regular rate and rhythm, no murmurs or gallops Respiratory: Slight expiratory wheeze noted in the right upper lobe GI: soft, nondistended, nontender, positive bowel sounds with no organomegaly Extremity: moves all extremities, no restrictions of movements, no calf tenderness, no edema Neuro: AOx3, CN II-VII intact. Moves all extremities in all planes of motion. Skin: dry, intact no rashes or lesions Objective Lab Results 01/07/25 04:50 01/07/25 04:50 Meds Allergies and Active Meds Allergies No Known Allergies Allergy (Verified 01/04/25 22:04) Active Meds: Active Medications Generic Name Dose Route Start Last Admin Trade Name Freq PRN Reason Stop Dose Admin Acetaminophen 650 mg 01/05/25 02:39 01/05/25 21:30 Acetaminophen 325 Mg Tablet PO 01/05/26 02:38 650 mg Q4H PRN Administration Pain Scale 1 - 5 Albuterol 2.5 mg 01/05/25 02:39 Albuterol Neb 2.5 Mg/3 Ml Vial.Neb INHALATION 01/05/26 02:38 Q2H PRN Shortness Of Breath Albuterol/Ipratropium 3 ml 01/05/25 08:00 01/07/25 08:25 Ipratropium/Albuterol 0.5-3 Mg 3 Ml Ampul.Neb INHALATION 01/05/26 07:59 3 ml QID.RESP ALEX Administration Aspirin 81 mg 01/05/25 09:00 01/07/25 08:15 Aspirin 81 Mg Tablet.Dr PO 01/05/26 08:59 81 mg DAILY ALEX Administration Atorvastatin Calcium 40 mg 01/05/25 21:00 01/06/25 21:31 Atorvastatin 40 Mg Tablet PO 01/05/26 20:59 40 mg QPM ALEX Administration Ciprofloxacin HCl 1 drops 01/05/25 09:00 01/07/25 08:15 Ciprofloxacin 0.3% Op Soln 100 Drops/5 Ml Bottle EYE-LEFT 1 drops QID ALEX Administration Dapagliflozin 10 mg 01/05/25 14:05 01/07/25 08:15 Dapagliflozin 10 Mg Tablet PO 01/05/26 14:04 10 mg DAILY ALEX Administration Docusate Sodium 200 mg 01/05/25 02:39 Docusate 100 Mg Capsule PO 01/05/26 02:38 BID PRN Constipation Dofetilide 250 mcg 01/05/25 09:00 01/07/25 08:15 Dofetilide 250 Mcg Capsule PO 01/05/26 08:59 250 mcg BID ALEX Administration Finasteride 5 mg 01/05/25 09:00 01/07/25 08:17 Finasteride 5 Mg Tablet PO 01/05/26 08:59 5 mg DAILY ALEX Administration Furosemide 20 mg 01/06/25 16:00 01/07/25 08:16 Furosemide 20 Mg/2 Ml Vial IV-PUSH 01/06/26 15:59 20 mg BID@0800,1600 ALEX Administration Guaifenesin 1,200 mg 01/05/25 09:00 01/07/25 08:15 Guaifenesin 600 Mg Tab.Er.12h PO 01/05/26 08:59 1,200 mg BID ALEX Administration Latanoprost 1 drops 01/05/25 22:00 01/06/25 21:33 Latanoprost 0.005% Op Soln 50 Drops/2.5 Ml Bottle EYE-LEFT 01/05/26 21:59 1drops HS ALEX Administration Metoprolol Succinate 25 mg 01/05/25 09:00 01/07/25 08:15 Metoprolol Succinate 25 Mg Tab.Er.24h PO 01/05/26 08:59 25 mg DAILY ALEX Administration Pantoprazole Sodium 40 mg 01/05/25 07:30 01/07/25 07:34 Pantoprazole 40 Mg Tablet.Dr PO 01/05/26 07:29 40 mg DAILY.AC.BKFAST ALEX Administration Prednisolone Acetate 1 drops 01/05/25 09:00 01/07/25 08:15 Prednisolone Ac 1% Op Susp 100 Drops/5 Ml Bottle EYE-LEFT 01/05/26 08:59 1 drops QID ALEX Administration Rivaroxaban 20 mg 01/06/25 13:00 01/06/25 13:29 Rivaroxaban 20 Mg Tablet PO 01/06/26 12:59 20 mg DAILY.WITH.SUPPER ALEX Administration Sodium Chloride 0 ml 01/04/25 22:02 01/05/25 11:17 Sodium Chloride 0.9 % 10 Ml Syringe IV-PUSH 01/04/26 22:01 10 ml PRN PRN Administration Flush Spironolactone 12.5 mg 01/06/25 09:00 01/07/25 08:15 Spironolactone 12.5 Mg Tablet PO 01/06/26 08:59 12.5 mg DAILY ALEX Administration Tamsulosin HCl 0.4 mg 01/05/25 09:00 01/07/25 08:15 Tamsulosin 0.4 Mg Cap.Er.24h PO 01/05/26 08:59 0.4 mg BID ALEX Administration Valacyclovir HCl 1,000 mg 01/05/25 09:00 01/07/25 08:15 Valacyclovir 500 Mg Tablet PO 1,000 mg BID ALEX Administration Valsartan 40 mg 01/06/25 09:00 01/07/25 08:15 Valsartan 40 Mg Tablet PO 01/06/26 08:59 40 mg DAILY ALEX Administration A&P - Hospitalist Assessment/Plan (1) Non-ST elevation UT (NSTEMI): Plan: Secondary to CHF exacerbation (2) History of sarcoidosis: Plan: Likely component ? Will order DuoNebs today (3) Acute on chronic hypoxic respiratory failure: Plan: Continue to titrate oxygen as able to Plan 1. Acute decompensated HFrEF ? Echocardiogram read with an EF of 45 to 50% though this may be overestimation,does appear to have Takotsubo appearance on images ? Continue with Lasix 20 mg IV push twice daily ? Continue valsartan, Farxiga, metoprolol, Aldactone ? Continue to work with PT OT ? Orthostatics negative Documented By: Jostin Larose DO 01/07/25 1001 Signed By: <Electronically signed by Jostin Larose DO> 01/07/25 1009 [facility] Work Phone: 1(127) 540-492808-26-2025 [place] [address] Cardiology Progress Note Signed Patient: Mary Mcadams MR#: [id number] : 1955 Acct:[id number] Age/Sex: 69 / M Adm Date: 5 Loc: Room: [address] [place] [address] Type: ADM IN Attending Dr: Jostin Larose DO Copies to: ~ Date of Service: 01/07/2025 Subjective Interval history: Patient feels better. Less short of breath. I reviewed personally his echocardiogram. I believe hisEF around 25-30% with regional motion abnormalityhighly suggestive of Takotsubo syndrome Exam Physical Exam Vital Signs: Temp Pulse Resp BP Pulse Ox O2 Del Method O2 Flow Rate 97.7 F 80 20 107/70 96 Nasal Cannula 4 01/07/25 07:56 01/07/25 08:34 01/07/25 08:34 01/07/25 07:56 01/07/25 08:25 01/07/25 08:25 01/07/25 08:25 FiO2 30 01/05/25 11:18 Eyes General: appearance normal, both eyes and all related structures Pupils: PERRL Neck Neck: normal visual inspection, supple and no lymphadenopathy noted Neck mass: No Thyroid: thyroid normal Carotids: normal carotid upstroke Chest Chest palpation & inspection: normal inspection of the chest Resp Effort & Inspection: labored and nasal flaring Auscultation: rales and rhonchi Cardio Palpation: normal PMI Rate: regular rate Rhythm: regular rhythm Heart Sounds: S1 normal, S2 normal and murmur systolic II/ GI Palpation: soft and no hepatosplenomegaly Percussion: normal to percussion Auscultation: normal bowel sounds Skin General: no rashes or lesions noted and dry skin Extrem General: full ROM and capillary refill normal Objective Labs 01/07/25 04:50 01/07/25 04:50 Labs: Laboratory Results - last 24 hr 01/07/25 04:50 Corrected WBC 9.4 RBC 3.23 L Hgb 9.1 L Hct 26.8 L MCV 82.9 L MCH 28.2 MCHC 34.0 RDW 18.1 H Plt Count 265 MPV 7.8 PHA Creatinine Clear 60.71 Sodium 138 Potassium 4.0 Chloride 106 Carbon Dioxide 27.0 Anion Gap 9.0 BUN 29 H Creatinine 0.98 Est GFR (CKD-EPI) > 60.0 Glucose 94 Calcium 8.7 Magnesium 1.7 L A&P - Cardiology (1) Non-ST elevation UT (NSTEMI): Code(s): I21.4 - Non-ST elevation (NSTEMI) myocardial infarction Plan Assessment 1. Worsening shortness of breath appears multifactorial related due to advancedlung disease, history of pulmonary sarcoidosis, acute on chronic systolic heart failure. Patient echocardiogram was interpreted as global LV hypokinesis with EF around 45%. Reviewing the echo indicate ejection fraction to be worse in therange of 25-30% with focal regional motion abnormality highly suggestive of Takotsubo syndrome. Taking into consideration the patient had a previous heart cath in 2016 which was negative and negative stress test last year I suspect theclinical picture is more consistent with Takotsubo/stress cardiomyopathy. Patient clinically better 2. 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 Frail status and malnutrition 4. Atrial fibrillation maintaining sinus rhythm with dofetilide 5. Elevated troponin I suspect likely to be type II event but difficult to exclude progression of coronary artery disease his heart cath in 2016 was negative he also had a stress test last year I suspect clinical picture to be consistent with stress cardiomyopathy 6. Carotid disease 7. Anticoagulated 8. Previous cardiac MRI was abnormal suspicious of cardiac involvement with sarcoidosis Plan 1. Patient can be switched to oral diuretics 2. We added valsartan and Fraxiga to optimize heart failure therapy 3. I reviewed his echo personally and as dictated above I believe it is highly consistent with Takotsubo/stress cardiomyopathy 5. I discussed with him invasive evaluation. Based on negative previous heart cath and recent stress test the patient elected to continue with conservative management 6. Will check EKG Documented By: Chacho Burroughs MD 01/07/25 1031 Signed By: 01/07/25 1037 [facility]08-26-20[place] [address] Hospitalist Progress Note Signed Patient: Mary Mcadams MR#: [id number] : 1955 Acct:[id number] Age/Sex: 69 / M Adm Date: 5 Loc: Room: [address] [place] [address] Type: ADM IN Attending Dr: Jostin Larose DO Copies to: ~ Date of Service: 01/07/2025 Subjective Subjective Narrative: Seen and evaluated this morning, his orthostatic vitals were negative yesterday though he did feel symptomatic with standing up despite his blood pressure not having a large decrease. He has not really been out of bed much, continue to work with PT OT. Patient was agreeable. Exam Physical Exam Vital Signs: Temp Pulse Resp BP Pulse Ox O2 Del Method O2 Flow Rate 97.7 F 80 20 107/70 96 Nasal Cannula 4 01/07/25 07:56 01/07/25 08:34 01/07/25 08:34 01/07/25 07:56 01/07/25 08:25 01/07/25 08:25 01/07/25 08:25 FiO2 30 01/05/25 11:18 Narrative: General: Awake alert, no acute distress HEENT: head atraumatic, normocephalic, moist mucous membranes Neck: supple no masses, no lymphadenopathy CVS: regular rate and rhythm, no murmurs or gallops Respiratory: Slight expiratory wheeze noted in the right upper lobe GI: soft, nondistended, nontender, positive bowel sounds with no organomegaly Extremity: moves all extremities, no restrictions of movements, no calf tenderness, no edema Neuro: AOx3, CN II-VII intact. Moves all extremities in all planes of motion. Skin: dry, intact no rashes or lesions Objective Lab Results 01/07/25 04:50 01/07/25 04:50 Meds Allergies and Active Meds Allergies No Known Allergies Allergy (Verified 01/04/25 22:04) Active Meds: Active Medications Generic Name Dose Route Start Last Admin Trade Name Freq PRN Reason Stop Dose Admin Acetaminophen 650 mg 01/05/25 02:39 01/05/25 21:30 Acetaminophen 325 Mg Tablet PO 01/05/26 02:38 650 mg Q4H PRN Administration Pain Scale 1 - 5 Albuterol 2.5 mg 01/05/25 02:39 Albuterol Neb 2.5 Mg/3 Ml Vial.Neb INHALATION 01/05/26 02:38 Q2H PRN Shortness Of Breath Albuterol/Ipratropium 3 ml 01/05/25 08:00 01/07/25 08:25 Ipratropium/Albuterol 0.5-3 Mg 3 Ml Ampul.Neb INHALATION 01/05/26 07:59 3 ml QID.RESP ALEX Administration Aspirin 81 mg 01/05/25 09:00 01/07/25 08:15 Aspirin 81 Mg Tablet.Dr PO 01/05/26 08:59 81 mg DAILY ALEX Administration Atorvastatin Calcium 40 mg 01/05/25 21:00 01/06/25 21:31 Atorvastatin 40 Mg Tablet PO 01/05/26 20:59 40 mg QPM ALEX Administration Ciprofloxacin HCl 1 drops 01/05/25 09:00 01/07/25 08:15 Ciprofloxacin 0.3% Op Soln 100 Drops/5 Ml Bottle EYE-LEFT 1 drops QID ALEX Administration Dapagliflozin 10 mg 01/05/25 14:05 01/07/25 08:15 Dapagliflozin 10 Mg Tablet PO 01/05/26 14:04 10 mg DAILY ALEX Administration Docusate Sodium 200 mg 01/05/25 02:39 Docusate 100 Mg Capsule PO 01/05/26 02:38 BID PRN Constipation Dofetilide 250 mcg 01/05/25 09:00 01/07/25 08:15 Dofetilide 250 Mcg Capsule PO 01/05/26 08:59 250 mcg BID ALEX Administration Finasteride 5 mg 01/05/25 09:00 01/07/25 08:17 Finasteride 5 Mg Tablet PO 01/05/26 08:59 5 mg DAILY ALEX Administration Furosemide 20 mg 01/06/25 16:00 01/07/25 08:16 Furosemide 20 Mg/2 Ml Vial IV-PUSH 01/06/26 15:59 20 mg BID@0800,1600 ALEX Administration Guaifenesin 1,200 mg 01/05/25 09:00 01/07/25 08:15 Guaifenesin 600 Mg Tab.Er.12h PO 01/05/26 08:59 1,200 mg BID ALEX Administration Latanoprost 1 drops 01/05/25 22:00 01/06/25 21:33 Latanoprost 0.005% Op Soln 50 Drops/2.5 Ml Bottle EYE-LEFT 01/05/26 21:59 1drops HS ALEX Administration Metoprolol Succinate 25 mg 01/05/25 09:00 01/07/25 08:15 Metoprolol Succinate 25 Mg Tab.Er.24h PO 01/05/26 08:59 25 mg DAILY ALEX Administration Pantoprazole Sodium 40 mg 01/05/25 07:30 01/07/25 07:34 Pantoprazole 40 Mg Tablet.Dr PO 01/05/26 07:29 40 mg DAILY.AC.BKFAST ALEX Administration Prednisolone Acetate 1 drops 01/05/25 09:00 01/07/25 08:15 Prednisolone Ac 1% Op Susp 100 Drops/5 Ml Bottle EYE-LEFT 01/05/26 08:59 1 drops QID ALEX Administration Rivaroxaban 20 mg 01/06/25 13:00 01/06/25 13:29 Rivaroxaban 20 Mg Tablet PO 01/06/26 12:59 20 mg DAILY.WITH.SUPPER ALEX Administration Sodium Chloride 0 ml 01/04/25 22:02 01/05/25 11:17 Sodium Chloride 0.9 % 10 Ml Syringe IV-PUSH 01/04/26 22:01 10 ml PRN PRN Administration Flush Spironolactone 12.5 mg 01/06/25 09:00 01/07/25 08:15 Spironolactone 12.5 Mg Tablet PO 01/06/26 08:59 12.5 mg DAILY ALEX Administration Tamsulosin HCl 0.4 mg 01/05/25 09:00 01/07/25 08:15 Tamsulosin 0.4 Mg Cap.Er.24h PO 01/05/26 08:59 0.4 mg BID ALEX Administration Valacyclovir HCl 1,000 mg 01/05/25 09:00 01/07/25 08:15 Valacyclovir 500 Mg Tablet PO 1,000 mg BID ALEX Administration Valsartan 40 mg 01/06/25 09:00 01/07/25 08:15 Valsartan 40 Mg Tablet PO 01/06/26 08:59 40 mg DAILY ALEX Administration A&P - Hospitalist Assessment/Plan (1) Non-ST elevation UT (NSTEMI): Plan: Secondary to CHF exacerbation (2) History of sarcoidosis: Plan: Likely component ? Will order DuoNebs today (3) Acute on chronic hypoxic respiratory failure: Plan: Continue to titrate oxygen as able to Plan 1. Acute decompensated HFrEF ? Echocardiogram read with an EF of 45 to 50% though this may be overestimation,does appear to haveTakotsubo appearance on images ? Continue with Lasix 20 mg IV push twice daily ? Continue valsartan, Farxiga, metoprolol, Aldactone ? Continue to work with PT OT ? Orthostatics negative Documented By: Jostin Larose DO 01/07/25 1001 Signed By: 01/07/25 1009 [facility]08-25-2025 Progress note Author Jostin Larose [facility] Note Date/Time January 06, 2025 3: 06pm [facility] [address] [place] [address] Hospitalist Progress Note Signed Patient: Mary Mcadams MR#: [id number] : 1955 Acct:[id number] Age/Sex: 69 / M Adm Date: 5 Loc: Room: [address] [place] [address] Type: ADM IN Attending Dr: Jostin Larose DO Copies to: ~ Date of Service: 01/06/2025 Subjective Subjective Narrative: Orts feeling a little better but is still very far from baseline. He did feel very lightheaded this morning at the edge of bed with therapy. Exam Physical Exam Vital Signs: Temp Pulse Resp BP Pulse Ox O2 Del Method O2 Flow Rate 97.5 F L 76 18 103/59 L 100 Nasal Cannula 4 08/25/25 12:00 01/06/25 12:18 01/06/25 12:18 01/06/25 12:05 01/06/25 12:00 01/06/25 12:00 01/06/25 12:00 FiO2 30 01/05/25 11:18 Narrative: General: Awake alert, no acute distress HEENT: head atraumatic, normocephalic, moist mucous membranes Neck: supple no masses, no lymphadenopathy CVS: regular rate and rhythm, no murmurs or gallops Respiratory: clear to auscultation bilaterally, no wheezing or crackles, symmetric expansion GI: soft, nondistended, nontender, positive bowel sounds with no organomegaly Extremity: moves all extremities, no restrictions of movements, no calf tenderness, no edema Neuro: AOx3, CN II-VII intact. Moves all extremities in all planes of motion. Skin: dry, intact no rashes or lesions Objective Lab Results 01/05/25 03:20 01/06/25 04:33 Meds Allergies and Active Meds Allergies No Known Allergies Allergy (Verified 01/04/25 22:04) Active Meds: Active Medications Generic Name Dose Route Start Last Admin Trade Name Freq PRN Reason Stop Dose Admin Acetaminophen 650 mg 01/05/25 02:39 01/05/25 21:30 Acetaminophen 325 Mg Tablet PO 01/05/26 02:38 650 mg Q4H PRN Administration Pain Scale 1 - 5 Albuterol 2.5 mg 01/05/25 02:39 Albuterol Neb 2.5 Mg/3 Ml Vial.Neb INHALATION 01/05/26 02:38 Q2H PRN Shortness Of Breath Albuterol/Ipratropium 3 ml 01/05/25 08:00 01/06/25 12:17 Ipratropium/Albuterol 0.5-3 Mg 3 Ml Ampul.Neb INHALATION 01/05/26 07:59 3 ml QID.RESP ALEX Administration Aspirin 81 mg 01/05/25 09:00 01/06/25 08:55 Aspirin 81 Mg Tablet. PO 01/05/26 08:59 81 mg DAILY ALEX Administration Atorvastatin Calcium 40 mg 01/05/25 21:00 01/05/25 21:30 Atorvastatin 40 Mg Tablet PO 01/05/26 20:59 40 mg QPM ALEX Administration Ciprofloxacin HCl 1 drops 01/05/25 09:00 01/06/25 13:30 Ciprofloxacin 0.3% Op Soln 100 Drops/5 Ml Bottle EYE-LEFT 1 drops QID ALEX Administration Dapagliflozin 10 mg 01/05/25 14:05 01/06/25 08:55 Dapagliflozin 10 Mg Tablet PO 01/05/26 14:04 10 mg DAILY ALEX Administration Docusate Sodium 200 mg 01/05/25 02:39 Docusate 100 Mg Capsule PO 01/05/26 02:38 BID PRN Constipation Dofetilide 250 mcg 01/05/25 09:00 01/06/25 08:55 Dofetilide 250 Mcg Capsule PO 01/05/26 08:59 250 mcg BID ALEX Administration Finasteride 5 mg 01/05/25 09:00 01/06/25 08:55 Finasteride 5 Mg Tablet PO 01/05/26 08:59 5 mg DAILY ALEX Administration Furosemide 20 mg 01/06/25 16:00 Furosemide 20 Mg/2 Ml Vial IV-PUSH 01/06/26 15:59 BID@0800,1600 ALEX Guaifenesin 1,200 mg 01/05/25 09:00 01/06/25 08:55 Guaifenesin 600 Mg Tab.Er.12h PO 01/05/26 08:59 1,200 mg BID ALEX Administration Latanoprost 1 drops 01/05/25 22:00 01/05/25 21:32 Latanoprost 0.005% Op Soln 50 Drops/2.5 Ml Bottle EYE-LEFT 01/05/26 21:59 1drops HS ALEX Administration Metoprolol Succinate 25 mg 01/05/25 09:00 01/06/25 08:55 Metoprolol Succinate 25 Mg Tab.Er.24h PO 01/05/26 08:59 25 mg DAILY ALEX Administration Pantoprazole Sodium 40 mg 01/05/25 07:30 01/06/25 08:55 Pantoprazole 40 Mg Tablet.Dr PO 01/05/26 07:29 40 mg DAILY.AC.BKFAST ALEX Administration Prednisolone Acetate 1 drops 01/05/25 09:00 01/06/25 13:29 Prednisolone Ac 1% Op Susp 100 Drops/5 Ml Bottle EYE-LEFT 01/05/26 08:59 1 drops QID ALEX Administration Rivaroxaban 20 mg 01/06/25 13:00 01/06/25 13:29 Rivaroxaban 20 Mg Tablet PO 01/06/26 12:59 20 mg DAILY.WITH.SUPPER ALEX Administration Sodium Chloride 0 ml 01/04/25 22:02 01/05/25 11:17 Sodium Chloride 0.9 % 10 Ml Syringe IV-PUSH 01/04/26 22:01 10 ml PRN PRN Administration Flush Spironolactone 12.5 mg 01/06/25 09:00 01/06/25 08:55 Spironolactone 12.5 Mg Tablet PO 01/06/26 08:59 12.5 mg DAILY ALEX Administration Tamsulosin HCl 0.4 mg 01/05/25 09:00 01/06/25 08:55 Tamsulosin 0.4 Mg Cap.Er.24h PO 01/05/26 08:59 0.4 mg BID ALEX Administration Valacyclovir HCl 1,000 mg 01/05/25 09:00 01/06/25 08:55 Valacyclovir 500 Mg Tablet PO 1,000 mg BID ALEX Administration Valsartan 40 mg 01/06/25 09:00 01/06/25 08:56 Valsartan 40 Mg Tablet PO 01/06/26 08:59 40 mg DAILY ALEX Administration A&P - Hospitalist Assessment/Plan (1) Non-ST elevation UT (NSTEMI): Plan 1. Acute decompensated HFrEF [id number] ultrasound shows severely depressed LVEF. This is a relatively new development. Awaiting formal echo Initiate diuretic therapy IV furosemide, will de-escalate to 20 mg IV push dailyas he was relatively hypotensive this morning down in the 90s and symptomatic sitting at the bed Initiate medical therapy for HFrEF, valsartan 40 mg daily, Farxiga ? Echocardiogram pending ?If patient develops hypotensive and is symptomatic, low threshold to give a bolus of fluids. Documented By: Jostin Larose DO 01/06/25 1504 Signed By: <Electronically signed by Jostin Larose DO> 01/06/25 1506 [facility] Work Phone: 1(797) 184-943108-25-20[place] [address] Hospitalist Progress Note Signed Patient: Mary Mcadams MR#: [id number] : 1955 Acct:[id number] Age/Sex: 69 / M Adm Date: 5 Loc: 4 Room: [address] [place] [address] Type: ADM IN Attending Dr: Jostin Larose DO Copies to: ~ Date of Service: 01/06/2025 Subjective Subjective Narrative: Orts feeling a little better but is still very far from baseline. He did feel very lightheaded thismorning at the edge of bed with therapy. Exam Physical Exam Vital Signs: Temp Pulse Resp BP Pulse Ox O2 Del Method O2 Flow Rate 97.5 F L 76 18 103/59 L 100 Nasal Cannula 4 01/06/25 12:00 01/06/25 12:18 01/06/25 12:18 01/06/25 12:05 01/06/25 12:00 01/06/25 12:00 01/06/25 12:00 FiO2 30 01/05/25 11:18 Narrative: General: Awake alert, no acute distress HEENT: head atraumatic, normocephalic, moist mucous membranes Neck: supple no masses, no lymphadenopathy CVS: regular rate and rhythm, no murmurs or gallops Respiratory: clear to auscultation bilaterally, no wheezing or crackles, symmetric expansion GI: soft, nondistended, nontender, positive bowel sounds with no organomegaly Extremity: moves all extremities, no restrictions of movements, no calf tenderness, no edema Neuro: AOx3, CN II-VII intact. Moves all extremities in all planes of motion. Skin: dry, intact no rashes or lesions Objective Lab Results 01/05/25 03:20 01/06/25 04:33 Meds Allergies and Active Meds Allergies No Known Allergies Allergy (Verified 01/04/25 22:04) Active Meds: Active Medications Generic Name Dose Route Start Last Admin Trade Name Freq PRN Reason Stop Dose Admin Acetaminophen 650 mg 01/05/25 02:39 01/05/25 21:30 Acetaminophen 325 Mg Tablet PO 01/05/26 02:38 650 mg Q4H PRN Administration Pain Scale 1 - 5 Albuterol 2.5 mg 01/05/25 02:39 Albuterol Neb 2.5 Mg/3 Ml Vial.Neb INHALATION 01/05/26 02:38 Q2H PRN Shortness Of Breath Albuterol/Ipratropium 3 ml 01/05/25 08:00 01/06/25 12:17 Ipratropium/Albuterol 0.5-3 Mg 3 Ml Ampul.Neb INHALATION 01/05/26 07:59 3 ml QID.RESP ALEX Administration Aspirin 81 mg 01/05/25 09:00 01/06/25 08:55 Aspirin 81 Mg Tablet.Dr PO 01/05/26 08:59 81 mg DAILY ALEX Administration Atorvastatin Calcium 40 mg 01/05/25 21:00 01/05/25 21:30 Atorvastatin 40 Mg Tablet PO 01/05/26 20:59 40 mg QPM ALEX Administration Ciprofloxacin HCl 1 drops 01/05/25 09:00 01/06/25 13:30 Ciprofloxacin 0.3% Op Soln 100 Drops/5 Ml Bottle EYE-LEFT 1 drops QID ALEX Administration Dapagliflozin 10 mg 01/05/25 14:05 01/06/25 08:55 Dapagliflozin 10 Mg Tablet PO 01/05/26 14:04 10 mg DAILY ALEX Administration Docusate Sodium 200 mg 01/05/25 02:39 Docusate 100 Mg Capsule PO 01/05/26 02:38 BID PRN Constipation Dofetilide 250 mcg 01/05/25 09:00 01/06/25 08:55 Dofetilide 250 Mcg Capsule PO 01/05/26 08:59 250 mcg BID ALEX Administration Finasteride 5 mg 01/05/25 09:00 01/06/25 08:55 Finasteride 5 Mg Tablet PO 01/05/26 08:59 5 mg DAILY ALEX Administration Furosemide 20 mg 01/06/25 16:00 Furosemide 20 Mg/2 Ml Vial IV-PUSH 01/06/26 15:59 BID@0800,1600 ALEX Guaifenesin 1,200 mg 01/05/25 09:00 01/06/25 08:55 Guaifenesin 600 Mg Tab.Er.12h PO 01/05/26 08:59 1,200 mg BID ALEX Administration Latanoprost 1 drops 01/05/25 22:00 01/05/25 21:32 Latanoprost 0.005% Op Soln 50 Drops/2.5 Ml Bottle EYE-LEFT 01/05/26 21:59 1drops HS ALEX Administration Metoprolol Succinate 25 mg 01/05/25 09:00 01/06/25 08:55 Metoprolol Succinate 25 Mg Tab.Er.24h PO 01/05/26 08:59 25 mg DAILY ALEX Administration Pantoprazole Sodium 40 mg 01/05/25 07:30 01/06/25 08:55 Pantoprazole 40 Mg Tablet.Dr PO 01/05/26 07:29 40 mg DAILY.AC.BKFAST ALEX Administration Prednisolone Acetate 1 drops 01/05/25 09:00 01/06/25 13:29 Prednisolone Ac 1% Op Susp 100 Drops/5 Ml Bottle EYE-LEFT 01/05/26 08:59 1 drops QID ALEX Administration Rivaroxaban 20 mg 01/06/25 13:00 01/06/25 13:29 Rivaroxaban 20 Mg Tablet PO 01/06/26 12:59 20 mg DAILY.WITH.SUPPER ALEX Administration Sodium Chloride 0 ml 01/04/25 22:02 01/05/25 11:17 Sodium Chloride 0.9 % 10 Ml Syringe IV-PUSH 01/04/26 22:01 10 ml PRN PRN Administration Flush Spironolactone 12.5 mg 01/06/25 09:00 01/06/25 08:55 Spironolactone 12.5 Mg Tablet PO 01/06/26 08:59 12.5 mg DAILY ALEX Administration Tamsulosin HCl 0.4 mg 01/05/25 09:00 01/06/25 08:55 Tamsulosin 0.4 Mg Cap.Er.24h PO 01/05/26 08:59 0.4 mg BID ALEX Administration Valacyclovir HCl 1,000 mg 01/05/25 09:00 01/06/25 08:55 Valacyclovir 500 Mg Tablet PO 1,000 mg BID ALEX Administration Valsartan 40 mg 01/06/25 09:00 01/06/25 08:56 Valsartan 40 Mg Tablet PO 01/06/26 08:59 40 mg DAILY ALEX Administration A&P - Hospitalist Assessment/Plan (1) Non-ST elevation UT (NSTEMI): Plan 1. Acute decompensated HFrEF Thhyj-oo-ccna ultrasound shows severely depressed LVEF. This is a relatively new development. Awaiting formal echo Initiate diuretic therapy IV furosemide, will de-escalate to 20 mg IV push dailyas he was relatively hypotensive this morning down in the 90s and symptomatic sitting at the bed Initiate medical therapy for HFrEF, valsartan 40 mg daily, Farxiga ? Echocardiogram pending ?If patient develops hypotensive and is symptomatic, low threshold to give a bolus of fluids. Documented By: Jostin Larose DO 01/06/25 1504 Signed By: 01/06/25 1506 [facility]08-25-2025 Progress note Author Chacho Burroughs [facility] Note Date/Time January 06, 2025 11 :44am [facility] [address] [place] [address] Cardiology Progress Note Signed with Addenda Patient: aMry Mcadams MR#: [id number] : 1955 Acct:[id number] Age/Sex: 69 / M Adm Date: 5 Loc: Room: [address] [place] [address] Type: ADM IN Attending Dr: Jostin Larose DO Copies to: ~ ADDENDUM1 Correction will switch his IV heparin back to his home dose Xarelto 20 mg daily Addendum Documented By: MD Chacho Burroughs 01/06/25 1144 Addendum Signed By: <Electronically signed by MD Chacho Burroughs> 01/06/25 114 Date of Service: 01/06/2025 Subjective Interval history: Patient feels better but remains short of breath Exam Physical Exam Vital Signs: Temp Pulse Resp BP Pulse Ox O2 Del Method O2 Flow Rate 97.6 F 83 18 97/63 L 95 Nasal Cannula 3 01/06/25 08:00 01/06/25 08:33 01/06/25 10:00 01/06/25 08:00 01/06/25 10:00 01/06/25 10:00 01/06/25 10:00 FiO2 30 01/05/25 11:18 Eyes General: appearance normal, both eyes and all related structures Pupils: PERRL Neck Neck: normal visual inspection, supple and no lymphadenopathy noted Neck mass: No Thyroid: thyroid normal Carotids: normal carotid upstroke Chest Chest palpation & inspection: normal inspection of the chest Resp Effort & Inspection: labored and nasal flaring Auscultation: rales and rhonchi Cardio Palpation: normal PMI Rate: regular rate Rhythm: regular rhythm Heart Sounds: S1 normal, S2 normal and murmur systolic II/ GI Palpation: soft and no hepatosplenomegaly Percussion: normal to percussion Auscultation: normal bowel sounds Extrem General: full ROM and capillary refill normal Objective Labs 01/05/25 03:20 01/06/25 04:33 Labs: Laboratory Results - last 24 hr 01/05/25 01/05/25 01/06/25 11:12 18:40 02:02 APTT 54.6 H 50.1 H 63.0 H PHA Creatinine Clear Sodium Potassium Chloride Carbon Dioxide Anion Gap BUN Creatinine Est GFR (CKD-EPI) Glucose Calcium Troponin I High Sens 398 H* 01/06/25 01/06/25 04:33 07:55 APTT 63.1 H PHA Creatinine Clear 55.33 Sodium 137 Potassium 4.0 Chloride 106 Carbon Dioxide 24.8 Anion Gap 10.2 BUN 22 Creatinine 1.07 Est GFR (CKD-EPI) > 60.0 Glucose 134 H Calcium 8.5 L Troponin I High Sens A&P - Cardiology (1) Non-ST elevation UT (NSTEMI): Code(s): I21.4 - Non-ST elevation (NSTEMI) myocardial infarction Plan Assessment 1. Worsening shortness of breath appears multifactorial related due to advancedlung disease, history of pulmonary sarcoidosis, acute on chronic systolic heart failure. Bedside hand-held echocardiogram suggest severe LV systolic dysfunction and worsening LVEF. 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 Heart cath back in 2016 showed no coronary artery disease 2. 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 Frail status and malnutrition 4. Atrial fibrillation maintaining sinus rhythm with dofetilide 5. Elevated troponin I suspect likely to be type II event but difficult to exclude progression of coronary artery disease his heart cath in 2016 was negative he also had a stress test last year which was also negative doubt the need to repeat ischemic evaluation 6. Carotid disease 7. Anticoagulated Plan 1. Mild diuresis 2. Add low-dose valsartan 40 mg daily and continue Farxiga and monitor if bloodpressure can tolerate and gradually uptitrate heart failure therapy 3. Start Jardiance next 24 hours 4. Full echo study 5. Patient had a previous heart cath and recent stress test both showed no evidence obstructive coronary artery disease no need to repeat ischemic evaluation. Can discontinue IV heparin and switch to Lovenox DVT prophylaxis Documented By: Chacho Burroughs MD 01/06/25 1140 Signed By: <Electronically signed by MD Chacho Burroughs> 01/06/25 1142 [facility] Work Phone: 1(197) 967-620708-25-2025 [place] [address] Cardiology Progress Note Signed with Addenda Patient: Mary Mcadams MR#: [id number] : 1955 Acct:[id number] Age/Sex: 69 / M Adm Date: 5 Loc: Room: [address] [place] [address] Type: ADM IN Attending Dr: Jostin Larose DO Copies to: ~ ADDENDUM1 Correction will switch his IV heparin back to his home dose Xarelto 20 mg daily Addendum Documented By: MD Chacho Burroughs 01/06/25 1144 Addendum Signed By: 01/06/25 1144 Date of Service: 01/06/2025 Subjective Interval history: Patient feels better but remains short of breath Exam Physical Exam Vital Signs: Temp Pulse Resp BP Pulse Ox O2 Del Method O2 Flow Rate 97.6 F 83 18 97/63 L 95 Nasal Cannula 3 01/06/25 08:00 01/06/25 08:33 01/06/25 10:00 01/06/25 08:00 01/06/25 10:00 01/06/25 10:00 01/06/25 10:00 FiO2 30 01/05/25 11:18 Eyes General: appearance normal, both eyes and all related structures Pupils: PERRL Neck Neck: normal visual inspection, supple and no lymphadenopathy noted Neck mass: No Thyroid: thyroid normal Carotids: normal carotid upstroke Chest Chest palpation & inspection: normal inspection of the chest Resp Effort & Inspection: labored and nasal flaring Auscultation: rales and rhonchi Cardio Palpation: normal PMI Rate: regular rate Rhythm: regular rhythm Heart Sounds: S1 normal, S2 normal and murmur systolic II/ GI Palpation: soft and no hepatosplenomegaly Percussion: normal to percussion Auscultation: normal bowel sounds Extrem General: full ROM and capillary refill normal Objective Labs 01/05/25 03:20 01/06/25 04:33 Labs: Laboratory Results - last 24 hr 01/05/25 01/05/25 01/06/25 11:12 18:40 02:02 APTT 54.6 H 50.1 H 63.0 H PHA Creatinine Clear Sodium Potassium Chloride Carbon Dioxide Anion Gap BUN Creatinine Est GFR (CKD-EPI) Glucose Calcium Troponin I High Sens 398 H* 01/06/25 01/06/25 04:33 07:55 APTT 63.1 H PHA Creatinine Clear 55.33 Sodium 137 Potassium 4.0 Chloride 106 Carbon Dioxide 24.8 Anion Gap 10.2 BUN 22 Creatinine 1.07 Est GFR (CKD-EPI) > 60.0 Glucose 134 H Calcium 8.5 L Troponin I High Sens A&P - Cardiology (1) Non-ST elevation UT (NSTEMI): Code(s): I21.4 - Non-ST elevation (NSTEMI) myocardial infarction Plan Assessment 1. Worsening shortness of breath appears multifactorial related due to advancedlung disease, history of pulmonary sarcoidosis, acute on chronic systolic heart failure. Bedside hand-held echocardiogram suggest severe LV systolic dysfunction and worsening LVEF. 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 Heart cath back in 2016 showed no coronary artery disease 2. 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 Frail status and malnutrition 4. Atrial fibrillation maintaining sinus rhythm with dofetilide 5. Elevated troponin I suspect likely to be type II event but difficult to exclude progression of coronary artery disease his heart cath in 2016 was negative he also had a stress test last year whichwas also negative doubt the need to repeat ischemic evaluation 6. Carotid disease 7. Anticoagulated Plan 1. Mild diuresis 2. Add low-dose valsartan 40 mg daily and continue Farxiga and monitor if bloodpressure can tolerate and gradually uptitrate heart failure therapy 3. Start Jardiance next 24 hours 4. Full echo study 5. Patient had a previous heart cath and recent stress test both showed no evidence obstructive coronary artery disease no need to repeat ischemic evaluation. Can discontinue IV heparin and switch toLovenox DVT prophylaxis Documented By: Chacho Burroughs MD 01/06/25 1140 Signed By: 01/06/25 1142 [facility]08-24-2025 Progress note Author Altaf Jones [facility] Note Date/Time January 05, 2025 2: 09pm [facility] [address] [place] [address] Hospitalist Progress Note Signed Patient: Mary Mcadams MR#: [id number] : 1955 Acct:[id number] Age/Sex: 69 / M Adm Date: 5 Loc: Room: [address] [place] [address] Type: ADM IN Attending Dr: Altaf Jones MD Copies to: ~ Date of Service: 01/05/2025 Subjective Subjective Narrative: Patient has obvious orthopnea when laying flat. Dry cough. No chest pain Heart regular, no gallop rub. Positive JVD. Fhuoj-ne-yjgt ultrasound with severely decreased LVEF. No effusion. Lungs diminished bilaterally, bilateral expiratory crackles audible Abdomen soft benign Neurological nonfocal Exam Physical Exam Vital Signs: Temp Pulse Resp BP Pulse Ox O2 Del Method O2 Flow Rate 97.9 F 80 20 112/72 99 Nasal Cannula 4 01/05/25 11:12 01/05/25 13:25 01/05/25 13:25 01/05/25 11:12 01/05/25 11:12 01/05/25 11:12 01/05/25 11:12 FiO2 30 01/05/25 01:00 Objective Lab Results 01/05/25 03:20 01/05/25 03:20 Meds Allergies and Active Meds Allergies No Known Allergies Allergy (Verified 01/04/25 22:04) Active Meds: Active Medications Generic Name Dose Route Start Last Admin Trade Name Freq PRN Reason Stop Dose Admin Acetaminophen 650 mg 01/05/25 02:39 Acetaminophen 325 Mg Tablet PO 01/05/26 02:38 Q4H PRN Pain Scale 1 - 5 Albuterol 2.5 mg 01/05/25 02:39 Albuterol Neb 2.5 Mg/3 Ml Vial.Neb INHALATION 01/05/26 02:38 Q2H PRN Shortness Of Breath Albuterol/Ipratropium 3 ml 01/05/25 08:00 01/05/25 13:24 Ipratropium/Albuterol 0.5-3 Mg 3 Ml Ampul.Neb INHALATION 01/05/26 07:59 3 ml QID.RESP ALEX Administration Aspirin 81 mg 01/05/25 09:00 01/05/25 09:03 Aspirin 81 Mg Tablet.Dr PO 01/05/26 08:59 81 mg DAILY ALEX Administration Atorvastatin Calcium 40 mg 01/05/25 21:00 Atorvastatin 40 Mg Tablet PO 01/05/26 20:59 QPM ALEX Ciprofloxacin HCl 1 drops 01/05/25 09:00 01/05/25 09:04 Ciprofloxacin 0.3% Op Soln 100 Drops/5 Ml Bottle EYE-LEFT 1 drops QID ALEX Administration Docusate Sodium 200 mg 01/05/25 02:39 Docusate 100 Mg Capsule PO 01/05/26 02:38 BID PRN Constipation Dofetilide 250 mcg 01/05/25 09:00 01/05/25 09:02 Dofetilide 250 Mcg Capsule PO 01/05/26 08:59 250 mcg BID ALEX Administration Finasteride 5 mg 01/05/25 09:00 01/05/25 09:04 Finasteride 5 Mg Tablet PO 01/05/26 08:59 5 mg DAILY ALEX Administration Furosemide 20 mg 01/05/25 11:00 01/05/25 11:17 Furosemide 20 Mg/2 Ml Vial IV-PUSH 01/05/26 10:59 20 mg Q8H ALEX Administration Guaifenesin 1,200 mg 01/05/25 09:00 01/05/25 09:03 Guaifenesin 600 Mg Tab.Er.12h PO 01/05/26 08:59 1,200 mg BID ALEX Administration Heparin Sodium (Porcine) 1,600 unit 01/05/25 01:16 Heparin *Protocol Bolus* 5,000 Unit/Ml Vial 25 unit/kg (1600 unit) 01/05/26 01:15 IV-PUSH PROTOCOL PRN Anti-Xa < 0.1 or aPTT < 40 Heparin Sodium/Sodium Chloride 25,000 unit in 250 mls @ 7.56 mls/hr 01/05/25 01:30 01/05/25 12:51 Heparin IV 01/05/26 01:29 15 unit/kg/hr .Q24H ALEX 9.45 mls/hr Protocol Titration 12 UNIT/KG/HR Latanoprost 1 drops 01/05/25 22:00 Latanoprost 0.005% Op Soln 50 Drops/2.5 Ml Bottle EYE-LEFT 01/05/26 21:59 HS ALEX Methylprednisolone Sodium Succinate 40 mg 01/05/25 09:00 01/05/25 09:07 Methylprednisolone Sod Succ/Pf 40 Mg/Ml (1ml) Vial IV-PUSH 01/05/26 08:59 40 mg Q12HR ALEX Administration Metoprolol Succinate 25 mg 01/05/25 09:00 01/05/25 09:03 Metoprolol Succinate 25 Mg Tab.Er.24h PO 01/05/26 08:59 25 mg DAILY ALEX Administration Miscellaneous Information 1 each 01/05/25 01:16 Consult To Pharmacy MISCELLANE 01/05/26 01:15 .PHACONSULT PRN ZZ.Pharmacy Consult Protocol Pantoprazole Sodium 40 mg 01/05/25 07:30 01/05/25 09:02 Pantoprazole 40 Mg Tablet. PO 01/05/26 07:29 40 mg DAILY.AC.BKFAST ALEX Administration Prednisolone Acetate 1 drops 01/05/25 09:00 01/05/25 09:04 Prednisolone Ac 1% Op Susp 100 Drops/5 Ml Bottle EYE-LEFT 01/05/26 08:59 1 drops QID ALEX Administration Sodium Chloride 0 ml 01/04/25 22:02 01/05/25 11:17 Sodium Chloride 0.9 % 10 Ml Syringe IV-PUSH 01/04/26 22:01 10 ml PRN PRN Administration Flush Tamsulosin HCl 0.4 mg 01/05/25 09:00 01/05/25 09:03 Tamsulosin 0.4 Mg Cap.Er.24h PO 01/05/26 08:59 0.4 mg BID ALEX Administration Valacyclovir HCl 1,000 mg 01/05/25 09:00 01/05/25 09:02 Valacyclovir 500 Mg Tablet PO 1,000 mg BID ALEX Administration Valsartan 40 mg 01/06/25 09:00 Valsartan 40 Mg Tablet PO 01/06/26 08:59 DAILY ALEX A&P - Hospitalist Assessment/Plan (1) Non-ST elevation UT (NSTEMI): Plan 1. Acute decompensated HFrEF Smjjv-bj-[id number] ultrasound shows severely depressed LVEF. This is a relatively new development. Awaiting formal echo Initiate diuretic therapy IV furosemide. Monitor renal function electrolytes Initiate medical therapy for HFrEF Ischemic workup per cardiology. Cath in 2016 no CAD. He is known to have cardiac sarcoidosis based on cardiac MRI 2016. Discussed with Dr. 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 Dry cough. No chest pain Heart regular, no gallop rub. Positive JVD. Ejkea-rn-gjpu ultrasound with severely decreased LVEF. No effusion. Lungs diminished bilaterally, bilateral expiratory crackles audible Abdomen soft benign Neurological nonfocal Exam Physical Exam Vital Signs: Temp Pulse Resp BP Pulse Ox O2 Del Method O2 Flow Rate 97.9 F 80 20 112/72 99 Nasal Cannula 4 01/05/25 11:12 01/05/25 13:25 01/05/25 13:25 01/05/25 11:12 01/05/25 11:12 01/05/25 11:12 01/05/25 11:12 FiO2 30 01/05/25 01:00 Objective Lab Results 01/05/25 03:20 01/05/25 03:20 Meds Allergies and Active Meds Allergies No Known Allergies Allergy (Verified 01/04/25 22:04) Active Meds: Active Medications Generic Name Dose Route Start Last Admin Trade Name Freq PRN Reason Stop Dose Admin Acetaminophen 650 mg 01/05/25 02:39 Acetaminophen 325 Mg Tablet PO 01/05/26 02:38 Q4H PRN Pain Scale 1 - 5 Albuterol 2.5 mg 01/05/25 02:39 Albuterol Neb 2.5 Mg/3 Ml Vial.Neb INHALATION 01/05/26 02:38 Q2H PRN Shortness Of Breath Albuterol/Ipratropium 3 ml 01/05/25 08:00 01/05/25 13:24 Ipratropium/Albuterol 0.5-3 Mg 3 Ml Ampul.Neb INHALATION 01/05/26 07:59 3 ml QID.RESP ALEX Administration Aspirin 81 mg 01/05/25 09:00 01/05/25 09:03 Aspirin 81 Mg Tablet. PO 01/05/26 08:59 81 mg DAILY ALEX Administration Atorvastatin Calcium 40 mg 01/05/25 21:00 Atorvastatin 40 Mg Tablet PO 01/05/26 20:59 QPM ALEX Ciprofloxacin HCl 1 drops 01/05/25 09:00 01/05/25 09:04 Ciprofloxacin 0.3% Op Soln 100 Drops/5 Ml Bottle EYE-LEFT 1 drops QID ALEX Administration Docusate Sodium 200 mg 01/05/25 02:39 Docusate 100 Mg Capsule PO 01/05/26 02:38 BID PRN Constipation Dofetilide 250 mcg 01/05/25 09:00 01/05/25 09:02 Dofetilide 250 Mcg Capsule PO 01/05/26 08:59 250 mcg BID ALEX Administration Finasteride 5 mg 01/05/25 09:00 01/05/25 09:04 Finasteride 5 Mg Tablet PO 01/05/26 08:59 5 mg DAILY ALEX Administration Furosemide 20 mg 01/05/25 11:00 01/05/25 11:17 Furosemide 20 Mg/2 Ml Vial IV-PUSH 01/05/26 10:59 20 mg Q8H ALEX Administration Guaifenesin 1,200 mg 01/05/25 09:00 01/05/25 09:03 Guaifenesin 600 Mg Tab.Er.12h PO 01/05/26 08:59 1,200 mg BID ALEX Administration Heparin Sodium (Porcine) 1,600 unit 01/05/25 01:16 Heparin *Protocol Bolus* 5,000 Unit/Ml Vial 25 unit/kg (1600 unit) 01/05/26 01:15 IV-PUSH PROTOCOL PRN Anti-Xa < 0.1 or aPTT < 40 Heparin Sodium/Sodium Chloride 25,000 unit in 250 mls @ 7.56 mls/hr 01/05/25 01:30 01/05/25 12:51 Heparin IV 01/05/26 01:29 15 unit/kg/hr .Q24H ALEX 9.45 mls/hr Protocol Titration 12 UNIT/KG/HR Latanoprost 1 drops 01/05/25 22:00 Latanoprost 0.005% Op Soln 50 Drops/2.5 Ml Bottle EYE-LEFT 01/05/26 21:59 HS ALEX Methylprednisolone Sodium Succinate 40 mg 01/05/25 09:00 01/05/25 09:07 Methylprednisolone Sod Succ/Pf 40 Mg/Ml (1ml) Vial IV-PUSH 01/05/26 08:59 40 mg Q12HR ALEX Administration Metoprolol Succinate 25 mg 01/05/25 09:00 01/05/25 09:03 Metoprolol Succinate 25 Mg Tab.Er.24h PO 01/05/26 08:59 25 mg DAILY ALEX Administration Miscellaneous Information 1 each 01/05/25 01:16 Consult To Pharmacy MISCELLANE 01/05/26 01:15 .PHACONSULT PRN SARAH.Pharmacy Consult Protocol Pantoprazole Sodium 40 mg 01/05/25 07:30 01/05/25 09:02 Pantoprazole 40 Mg Tablet. PO 01/05/26 07:29 40 mg DAILY.AC.BKFAST ALEX Administration Prednisolone Acetate 1 drops 01/05/25 09:00 01/05/25 09:04 Prednisolone Ac 1% Op Susp 100 Drops/5 Ml Bottle EYE-LEFT 01/05/26 08:59 1 drops QID ALEX Administration Sodium Chloride 0 ml 01/04/25 22:02 01/05/25 11:17 Sodium Chloride 0.9 % 10 Ml Syringe IV-PUSH 01/04/26 22:01 10 ml PRN PRN Administration Flush Tamsulosin HCl 0.4 mg 01/05/25 09:00 01/05/25 09:03 Tamsulosin 0.4 Mg Cap.Er.24h PO 01/05/26 08:59 0.4 mg BID ALEX Administration Valacyclovir HCl 1,000 mg 01/05/25 09:00 01/05/25 09:02 Valacyclovir 500 Mg Tablet PO 1,000 mg BID ALEX Administration Valsartan 40 mg 01/06/25 09:00 Valsartan 40 Mg Tablet PO 01/06/26 08:59 DAILY ALEX A&P - Hospitalist Assessment/Plan (1) Non-ST elevation UT (NSTEMI): Plan 1. Acute decompensated HFrEF [id number]-[id number] ultrasound shows severely depressed LVEF. This is a relatively new development. Awaiting formal echo Initiate diuretic therapy IV furosemide. Monitor renal function electrolytes Initiate medical therapy for HFrEF Ischemic workup per cardiology. Cath in 2016 no CAD. He is known to have cardiac sarcoidosis based on cardiac MRI 2016. Discussed with Dr. 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% History of acoustic neuroma GERD BPH, self-catheterization at home Documented By: Altaf Jones MD 01/05/25 1402 Signed By: 01/05/25 1409 [facility]08-24-2025 Radiology Diagnostic study note [facility] [place] [address] [place] [address] CT Scan Report Signed Patient: Mary Mcadams MR#: [id number] : 1955 Acct:[id number] Age/Sex: 69 / M ADM Date: 5 Loc: Room: [address] [place] [address] Type: ADM IN Attending Dr: Altaf Jones MD Copies to: MD Cee Carballo DO~ Ordering Provider: Cee Proctor DO Date of Service: 01/05/25 CT/CT angio chest PE protocol: Hypoxia elevated troponin CT angio chest PE protocol 01/05/2025 1:24 AM SIGN AND SYMPTOMS: ^Hypoxia elevated troponin, A. fib, history of sarcoidosis CONTRAST: 90 mL of intravenous [id number] TECHNIQUE: Multidetector CT axial slices of the chest were obtained with IV contrast. Multiplanar and 3-D reformats were performed and viewed on a separate workstation and reviewed to further define anatomy and possible pathology. CT was performed with one or more of the following dose reduction techniques: Automated exposure control, adjustment of the mA and/or kV according to patient size, or use of iterative reconstruction technique. COMPARISON: 07/03/2024. FINDINGS: Lower neck: Surgical clips are present at the base of the neck suspicious for prior thyroidectomy. Vessels: Atherosclerotic changes are present in the thoracic aorta. There is noevidence of pulmonary embolism. Mediastinum and Randi: Densely calcified mediastinal and hilar lymph nodes are redemonstrated consistent with a history of sarcoidosis. Heart: Normal size. No pericardial effusion. Airways: Within normal limits Lungs: Bullous changes are noted in the left lung apex with bilateral apical scarring. There is perihilar scarring with diffuse interstitial prominence consistent with a history of sarcoidosis. Slight interval worsening of bilateral basilar airspace opacities are noted. Pleura: Within normal limits. Chest Wall: Within normal limits. Upper Abdomen: There is a tiny stone dependently within the gallbladder lumen. There is right-sidedrenal cortical scarring. Tiny 1 to 2 mm nonobstructing stones are noted in the right renal collecting system. Bones: There is a remote compression fracture of the T7 vertebral body. Degenerative changes are noted in the thoracic spine. CT/CT angio chest PE protocol IMPRESSION: No evidence of pulmonary embolism. Findings consistent with a history of sarcoidosis similar to the prior exam withsubtle interval worsening of airspace opacities in the lung bases. Additional chronic findings are noted as above. Impression dictated by: Juliocesar Varela M.D. 01/05/2025 11:46 AM Dictation Location: [place] [address] Transcribed By: [facility] 01/05/25 1146 Dictated By: Juliocesar Varela II, MD 01/05/25 1138 Signed By: 01/05/25 1146 [facility] Work Phone: 1(788) 894-444008-24-2025 History and physical note Author Elsie Leonard [facility] Note Date/Time January 05, 2025 4: 14am [facility] [address] [place] [address] Hospitalist H&P Signed Patient: Mary Mcadams MR#: [id number] : 1955 Acct:[id number] Age/Sex: 69 / M Adm Date: 5 Loc: Room: 8K2258-6 Type: ADM IN Attending Dr: Elsie Leonard MD Copies to: DO Elsie Waller MD~ HPI DATE OF EXAMINATION: 01/05/25 CHIEF COMPLAINT: sob HISTORY OF PRESENT ILLNESS: 69 years old male with history of chronic respiratory failure, on 2 to 3 L nasalcannula at home, COPD, with history of pulmonary and cardiac sarcoidosis, 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 No fevers no chills. No chest pain. He did complain of swelling of the right ankle. Denies any abdominal pain. No nausea no vomiting. No diarrhea. He did complain of mild mid abdominal pain. In the emergency room patient was noted to be tachypneic with respiratory rate 32 and heart rate 130s requiring BiPAP with improvement in his respiratory status. On the floor patient's oxygen titrated down to 4 L nasal cannula, and he was feeling significantly better. 10 systems are reviewed and are negative apart as mentioned H&P General -patient is awake alert oriented ?3, appears to be in mild respiratory distress, tachypneic HEENT -normal oropharyngeal mucosa without any ulcers or exudates Cardiovascular -S1 plus S2, with regular rate, without any murmurs, gallops, rubs Pulmonary distant breath sounds with expiratory wheezing Gastrointestinal -abdomen is soft, nondistended, nontender, bowel sounds positive, no rigidity, no rebound Musculoskeletal -no significant joint swelling Neurological -no focal Skin -no significant ulcers, no rash noted Extremities - no edema in bilateral lower extremities noted Psychiatry - appropriate affect Laboratory work up, imaging studies reviewed EKG personally reviewed by me sinus rhythm with nonspecific ST-T wave changes Previous records in the computer system reviewed CTA chest did not reveal any pulmonary embolism [facility] Medical History (Updated 01/05/25 @ 01:19 by Cee Proctor DO) On home oxygen therapy Skin cancer removed from back H/O: gout History of shingles left eye Blind right eye Acute exacerbation of chronic obstructive pulmonary disease (COPD) Hypoxemia Bullous emphysema Benign prostatic hyperplasia with lower urinary tract symptoms Atrial fibrillation Pulmonary sarcoidosis Chronic respiratory failure with hypoxia Carotid stenosis, right CTA: 90% right ICA - 02/2024 Chronic HFrEF (heart failure with reduced ejection fraction) Echo: LVEF 45-50%, normal RV size/function, mild aortic root dilatation 4.0 cm - 02/2024 Nonischemic cardiomyopathy Echo: LVEF 45-50%, normal RV size/function, mild aortic root dilatation 4.0 cm - 02/2024 Hyponatremia Anemia Alcohol dependence Hypertension History of cardioversion Abdominal pain Cardiac sarcoidosis History of aspergilloma Acoustic neuroma Lumbar spondylosis Gastroesophageal reflux disease with esophagitis without hemorrhage Diverticulosis Personal history of colonic polyps Surgical History H/O colonoscopy (~10/2021) repeat 5 years History of arthroscopic knee surgery Family History (Updated 01/02/25 @ 14:50 by Maribel Zavala RN) Brother Heart disease Legacy FamHx Relation: Brother(s) Multiple sclerosis Father Cancer Legacy FamHx Problem: Diagnosed with Cancer Mother Diabetes Heart disease Myocardial infarction Hx of CABG Social History Smoking Status: Current every day smoker Tobacco Type: smokeless tobacco Substance Use Type: Alcohol Substance Abuse Comment: no alcohol past couple months; hx up to 4-6 beers daily Meds Medications and Allergies Allergies No Known Allergies Allergy (Verified 01/04/25 22:04) Home Medications finasteride 5 mg tablet 5 mg PO DAILY 09/08/23 [History Confirmed 01/05/25] latanoprost 0.005 % eye drops 1 drp Eye-Left HS 10/12/23 [History Confirmed 01/05/25] Oxygen 10/23/23 [History Confirmed 01/05/25] multivitamin with minerals 1 cap PO DAILY #90 caps 03/19/24 [Rx Confirmed 01/05/25] atorvastatin 40 mg tablet 40 mg PO QPM 30 days #30 tabs 03/20/24 [Rx Confirmed 01/05/25] furosemide 20 mg tablet 20 mg PO DAILY PRN edema 06/03/24 [History Confirmed 01/05/25] metoprolol succinate 25 mg tablet,extended release 24 hr 25 mg PO DAILY 06/03/24[History Confirmed 01/05/25] pantoprazole 40 mg tablet,delayed release 40 mg PO DAILY.AC.BKFAST #0 tabs 07/09/24 [Rx Confirmed 01/05/25] tamsulosin 0.4 mg capsule See Rx Instructions .Route .COMPLEX #60 caps 08/11/24 [Rx Confirmed 01/05/25] dofetilide 250 mcg capsule 250 mcg PO Q12H 11/11/24 [History Confirmed 01/05/25] prednisolone acetate 1 % eye drops,suspension 1 drp Eye-Left QID Shingles 11/11/24 [History Confirmed 01/05/25] potassium chloride 10 mEq tablet,extended release (Klor-Con) 10 meq PO DAILY 30 days #30 tabs 11/19/24 [Rx Confirmed 01/05/25] ipratropium 0.5 mg-albuterol 3 mg (2.5 mg base)/3 mL nebulization soln 3 ml inhalation QID PRN shortness of breath 01/02/25 [History Confirmed 01/05/25] rivaroxaban 20 mg tablet (Xarelto) 20 mg PO QHS 01/02/25 [History Confirmed 01/05/25] valacyclovir 1 gram tablet 1,000 mg PO BID shingles in eye 01/02/25 [History Confirmed 01/05/25] ofloxacin 0.3 % eye drops 1 drp Eye-Left QID 01/05/25 [History Confirmed 01/05/25] Exam Physical Exam Vital Signs: Temp Pulse Resp BP Pulse Ox O2 Del Method O2 Flow Rate 36.8 C 85 20 103/75 100 Nasal Cannula 4 01/04/25 22:04 01/05/25 02:00 01/05/25 02:00 01/05/25 02:00 01/05/25 02:00 01/05/25 02:00 01/05/25 02:00 FiO2 30 01/05/25 01:00 Results - Hospitalist H&P Lab Results Labs: Laboratory Last Values Corrected WBC 10.2 X10E3/uL (4.1-10.5) 01/04/25 22:10 Uncorrected WBC Count 10.2 x10E3/uL (4.1-10.5) 01/04/25 22:10 RBC 3.80 x10E6/uL (3.90-5.60) L 01/04/25 22:10 Hgb 10.6 g/dL (13.0-17.0) L 01/04/25 22:10 Hct 31.7 % (38.8-50.0) L 01/04/25 22:10 MCV 83.3 fl (83.5-101) L 01/04/25 22:10 MCH 27.8 pg (27.5-35.2) 01/04/25 22:10 MCHC 33.4 g/dL (32.5-35.6) 01/04/25 22:10 RDW 17.5 % (12.0-14.8) H 01/04/25 22:10 Plt Count 281 x10E3/uL (150-450) 01/04/25 22:10 MPV 7.6 fl (6.6-10.1) 01/04/25 22:10 Neut % (Auto) 77.7 % (.) 01/04/25 22:10 Lymph % (Auto) 12.3 % (.) 01/04/25 22:10 Dickinson % (Auto) 6.2 % (.) 01/04/25 22:10 Eos % (Auto) 3.2 % (.) 01/04/25 22:10 Baso % (Auto) 0.6 % (.) 01/04/25 22:10 Nucleat RBC Rel Count 0.1 /100 WBC (0-0.5) 01/04/25 22:10 Neut # (Auto) 7.9 x10E3/uL (1.8-7.7) H 01/04/25 22:10 Lymph # (Auto) 1.2 x10E3/uL (1.00-4.8) 01/04/25 22:10 Dickinson # (Auto) 0.6 x10E3/uL (0.0-0.8) 01/04/25 22:10 Eos # (Auto) 0.3 x10E3/uL (0.0-0.45) 01/04/25 22:10 Baso # (Auto) 0.1 x10E3/uL (0.0-0.2) 01/04/25 22:10 Monocyte Dist Width 17.47 % (0.00-20.00) 01/04/25 22:10 PT 18.9 Seconds (9.0-12.9) H 01/04/25 22:10 INR 1.7 01/04/25 22:10 Heparin Anti-Xa, Unfract 1.30 IU/mL (0.30-0.70) H* 01/04/25 22:10 Sample Site Right radial 01/04/25 22:19 ABG pH 7.35 (7.35-7.45) 01/04/25 22:19 ABG pCO2 42.2 mmHg (35.0-45.0) 01/04/25 22:19 ABG pO2 91.5 mmHg (80.0-100.0) 01/04/25 22:19 ABG HCO3 23.0 mmol/L (23.0-29.0) 01/04/25 22:19 ABG Total CO2 24.3 mmol/L (23.0-27.0) 01/04/25 22:19 ABG O2 Saturation 96.7 % (95.0-100.0) 01/04/25 22:19 ABG O2 Content 6.8 mmol/L (6.6-9.7) 01/04/25 22:19 ABG Base Excess -2.4 mmol/L (-3.0-3.0) 01/04/25 22:19 FiO2 32 % 01/04/25 22:19 Critical Value 01/04/25 22:19 PHA Creatinine Clear 69.60 01/04/25 22:10 Sodium 137 mmol/L (136-145) 01/04/25 22:10 Potassium 3.6 mmol/L (3.5-5.1) 01/04/25 22:10 Chloride 104 mmol/L (98-107) 01/04/25 22:10 Carbon Dioxide 25.3 mmol/L (21.0-31.0) 01/04/25 22:10 Anion Gap 11.3 mEq/L (6.0-15.0) 01/04/25 22:10 BUN 11 mg/dL (7-25) 01/04/25 22:10 Creatinine 0.88 mg/dL (0.70-1.30) 01/04/25 22:10 Est GFR (CKD-EPI) > 60.0 mL/Min 01/04/25 22:10 Glucose 155 mg/dL (70-100) H 01/04/25 22:10 Calcium 8.8 mg/dL (8.6-10.3) 01/04/25 22:10 Total Bilirubin 0.4 mg/dl (0.3-1.0) 01/04/25 22:10 AST 21 U/L (13-39) 01/04/25 22:10 ALT 9 U/L (7-52) 01/04/25 22:10 Alkaline Phosphatase 140 U/L (34-104) H 01/04/25 22:10 Total Creatine Kinase 30 U/L (30-223) 01/04/25 22:10 Troponin I High Sens 135 ng/L (0-20) H* 01/04/25 23:22 B-Natriuretic Peptide 268.0 pg/mL (5-100) H 01/04/25 22:10 Total Protein 6.6 gm/dL (6.4-8.9) 01/04/25 22:10 Albumin 3.8 gm/dL (3.5-5.7) 01/04/25 22:10 Globulin 2.8 gm/dL 01/04/25 22:10 Albumin/Globulin Ratio 1.4 01/04/25 22:10 ABG Interpretation ABG results: 01/04/25 22:19 ABG pH 7.35 ABG pCO2 42.2 ABG pO2 91.5 ABG HCO3 23.0 ABG Total CO2 24.3 ABG O2 Saturation 96.7 ABG O2 Content 6.8 ABG Base Excess -2.4 Assessment & Plan Assessment/Plan (1) Non-ST elevation UT (NSTEMI): Plan 1. Acute on chronic (2 to 3 L nasal cannula at home) hypoxic respiratory failure presenting with tachypnea and use of accessory muscles requiring BiPAP in the emergency room, oxygen titrated down to 4 L due to suspected COPD exacerbation, patient does have bilateral wheezing CT scan of the chest did not reveal any significant infiltrate, no pulmonary emboli She does have underlying cardiac and pulmonary sarcoidosis, in the past complicated by aspergilloma treated with itraconazole in 2019 For now antibiotic therapy, bronchodilators, systemic and inhaled steroids 2. Abnormal troponins, no known history of coronary artery disease, probably MItype II Denies any chest pain, EKG nonischemic Patient was placed on heparin drip in emergency room Will consult cardiology 3. 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, currently normal sinus rhythm , Continue with antiarrhythmic therapy, Xarelto on hold while patient is on heparin therapy IP vs OBS Justification Based on differential dx, clinical care plan, and risk of adverse events, if untreated, in my clinical judgement this patient requires an acute care setting as: INPATIENT because of an expectation of an over 2 midnight stay. Estimated length of stay (# of days): 3 Documented By: Elsie Leonard MD 01/05/25 0354 Signed By: <Electronically signed by Elsie Leonard MD> 01/05/25 0414 [facility] Work Phone: 1(490) 443-599108-24-2025 [place] [address] Hospitalist H&P Signed Patient: Mary Mcadams MR#: [id number] : 1955 Acct:[id number] Age/Sex: 69 / M Adm Date: 5 Loc: Room: [address] [place] [address] Type: ADM IN Attending Dr: Elsie Leonard MD Copies to: DO Elsie Waller MD~ HPI DATE OF EXAMINATION: 01/05/25 CHIEF COMPLAINT: sob HISTORY OF PRESENT ILLNESS: 69 years old male with history of chronic respiratory failure, on 2 to 3 L nasalcannula at home, COPD, with history of pulmonary and cardiac sarcoidosis, 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 No fevers no chills. No chest pain. He did complain of swellingof the right ankle. Denies any abdominal pain. No nausea no vomiting. No diarrhea. He did complain of mild mid abdominal pain. In the emergency room patient was noted to be tachypneic with respiratory rate 32 and heart rate 130s requiring BiPAP with improvement in his respiratory status. On the floor patient's oxygen titrated down to 4 L nasal cannula, and he was feeling significantly better. 10 systems are reviewed and are negative apart as mentioned H&P General -patient is awake alert oriented ?3, appears to be in mild respiratory distress, tachypneic HEENT -normal oropharyngeal mucosa without any ulcers or exudates Cardiovascular -S1 plus S2, with regular rate, without any murmurs, gallops, rubs Pulmonary distant breath sounds with expiratory wheezing Gastrointestinal -abdomen is soft, nondistended, nontender, bowel sounds positive, no rigidity, no rebound Musculoskeletal -no significant joint swelling Neurological -no focal Skin -no significant ulcers, no rash noted Extremities - no edema in bilateral lower extremities noted Psychiatry - appropriate affect Laboratory work up, imaging studies reviewed EKG personally reviewed by me sinus rhythm with nonspecific ST-T wave changes Previous records in the computer system reviewed CTA chest did not reveal any pulmonary embolism [facility] Medical History (Updated 01/05/25 @ 01:19 by Cee Proctor DO) On home oxygen therapy Skin cancer removed from back H/O: gout History of shingles left eye Blind right eye Acute exacerbation of chronic obstructive pulmonary disease (COPD) Hypoxemia Bullous emphysema Benign prostatic hyperplasia with lower urinary tract symptoms Atrial fibrillation Pulmonary sarcoidosis Chronic respiratory failure with hypoxia Carotid stenosis, right CTA: 90% right ICA - 02/2024 Chronic HFrEF (heart failure with reduced ejection fraction) Echo: LVEF 45-50%, normal RV size/function, mild aortic root dilatation 4.0 cm - 02/2024 Nonischemic cardiomyopathy Echo: LVEF 45-50%, normal RV size/function, mild aortic root dilatation 4.0 cm - 02/2024 Hyponatremia Anemia Alcohol dependence Hypertension History of cardioversion Abdominal pain Cardiac sarcoidosis History of aspergilloma Acoustic neuroma Lumbar spondylosis Gastroesophageal reflux disease with esophagitis without hemorrhage Diverticulosis Personal history of colonic polyps Surgical History H/O colonoscopy (~10/2021) repeat 5 years History of arthroscopic knee surgery Family History (Updated 01/02/25 @ 14:50 by Maribel Zavala RN) Brother Heart disease Legacy FamHx Relation: Brother(s) Multiple sclerosis Father Cancer Legacy FamHx Problem: Diagnosed with Cancer Mother Diabetes Heart disease Myocardial infarction Hx of CABG Social History Smoking Status: Current every day smoker Tobacco Type: smokeless tobacco Substance Use Type: Alcohol Substance Abuse Comment: no alcohol past couple months; hx up to 4-6 beers daily Meds Medications and Allergies Allergies No Known Allergies Allergy (Verified 01/04/25 22:04) Home Medications finasteride 5 mg tablet 5 mg PO DAILY 09/08/23 [History Confirmed 01/05/25] latanoprost 0.005 % eye drops 1 drp Eye-Left HS 10/12/23 [History Confirmed 01/05/25] Oxygen 10/23/23 [History Confirmed 01/05/25] multivitamin with minerals 1 cap PO DAILY #90 caps 03/19/24 [Rx Confirmed 01/05/25] atorvastatin 40 mg tablet 40 mg PO QPM 30 days #30 tabs 03/20/24 [Rx Confirmed 01/05/25] furosemide 20 mg tablet 20 mg PO DAILY PRN edema 06/03/24 [History Confirmed 01/05/25] metoprolol succinate 25 mg tablet,extended release 24 hr 25 mg PO DAILY 06/03/24[History Confirmed 01/05/25] pantoprazole 40 mg tablet,delayed release 40 mg PO DAILY.AC.BKFAST #0 tabs 07/09/24 [Rx Confirmed 01/05/25] tamsulosin 0.4 mg capsule See Rx Instructions .Route .COMPLEX #60 caps 08/11/24 [Rx Confirmed 01/05/25] dofetilide 250 mcg capsule 250 mcg PO Q12H 11/11/24 [History Confirmed 01/05/25] prednisolone acetate 1 % eye drops,suspension 1 drp Eye-Left QID Shingles 11/11/24 [History Confirmed 01/05/25] potassium chloride 10 mEq tablet,extended release (Klor-Con) 10 meq PO DAILY 30 days #30 tabs 11/19/24 [Rx Confirmed 01/05/25] ipratropium 0.5 mg-albuterol 3 mg (2.5 mg base)/3 mL nebulization soln 3 ml inhalation QID PRN shortness of breath 01/02/25 [History Confirmed 01/05/25] rivaroxaban 20 mg tablet (Xarelto) 20 mg PO QHS 01/02/25 [History Confirmed 01/05/25] valacyclovir 1 gram tablet 1,000 mg PO BID shingles in eye 01/02/25 [History Confirmed 01/05/25] ofloxacin 0.3 % eye drops 1 drp Eye-Left QID 01/05/25 [History Confirmed 01/05/25] Exam Physical Exam Vital Signs: Temp Pulse Resp BP Pulse Ox O2 Del Method O2 Flow Rate 36.8 C 85 20 103/75 100 Nasal Cannula 4 01/04/25 22:04 01/05/25 02:00 01/05/25 02:00 01/05/25 02:00 01/05/25 02:00 01/05/25 02:00 01/05/25 02:00 FiO2 30 01/05/25 01:00 Results - Hospitalist H&P Lab Results Labs: Laboratory Last Values Corrected WBC 10.2 X10E3/uL (4.1-10.5) 01/04/25 22:10 Uncorrected WBC Count 10.2 x10E3/uL (4.1-10.5) 01/04/25 22:10 RBC 3.80 x10E6/uL (3.90-5.60) L 01/04/25 22:10 Hgb 10.6 g/dL (13.0-17.0) L 01/04/25 22:10 Hct 31.7 % (38.8-50.0) L 01/04/25 22:10 MCV 83.3 fl (83.5-101) L 01/04/25 22:10 MCH 27.8 pg (27.5-35.2) 01/04/25 22:10 MCHC 33.4 g/dL (32.5-35.6) 01/04/25 22:10 RDW 17.5 % (12.0-14.8) H 01/04/25 22:10 Plt Count 281 x10E3/uL (150-450) 01/04/25 22:10 MPV 7.6 fl (6.6-10.1) 01/04/25 22:10 Neut % (Auto) 77.7 % (.) 01/04/25 22:10 Lymph % (Auto) 12.3 % (.) 01/04/25 22:10 Dickinson % (Auto) 6.2 % (.) 01/04/25 22:10 Eos % (Auto) 3.2 % (.) 01/04/25 22:10 Baso % (Auto) 0.6 % (.) 01/04/25 22:10 Nucleat RBC Rel Count 0.1 /100 WBC (0-0.5) 01/04/25 22:10 Neut # (Auto) 7.9 x10E3/uL (1.8-7.7) H 01/04/25 22:10 Lymph # (Auto) 1.2 x10E3/uL (1.00-4.8) 01/04/25 22:10 Dickinson # (Auto) 0.6 x10E3/uL (0.0-0.8) 01/04/25 22:10 Eos # (Auto) 0.3 x10E3/uL (0.0-0.45) 01/04/25 22:10 Baso # (Auto) 0.1 x10E3/uL (0.0-0.2) 01/04/25 22:10 Monocyte Dist Width 17.47 % (0.00-20.00) 01/04/25 22:10 PT 18.9 Seconds (9.0-12.9) H 01/04/25 22:10 INR 1.7 01/04/25 22:10 Heparin Anti-Xa, Unfract 1.30 IU/mL (0.30-0.70) H* 01/04/25 22:10 Sample Site Right radial 01/04/25 22:19 ABG pH 7.35 (7.35-7.45) 01/04/25 22:19 ABG pCO2 42.2 mmHg (35.0-45.0) 01/04/25 22:19 ABG pO2 91.5 mmHg (80.0-100.0) 01/04/25 22:19 ABG HCO3 23.0 mmol/L (23.0-29.0) 01/04/25 22:19 ABG Total CO2 24.3 mmol/L (23.0-27.0) 01/04/25 22:19 ABG O2 Saturation 96.7 % (95.0-100.0) 01/04/25 22:19 ABG O2 Content 6.8 mmol/L (6.6-9.7) 01/04/25 22:19 ABG Base Excess -2.4 mmol/L (-3.0-3.0) 01/04/25 22:19 FiO2 32 % 01/04/25 22:19 Critical Value 01/04/25 22:19 PHA Creatinine Clear 69.60 01/04/25 22:10 Sodium 137 mmol/L (136-145) 01/04/25 22:10 Potassium 3.6 mmol/L (3.5-5.1) 01/04/25 22:10 Chloride 104 mmol/L (98-107) 01/04/25 22:10 Carbon Dioxide 25.3 mmol/L (21.0-31.0) 01/04/25 22:10 Anion Gap 11.3 mEq/L (6.0-15.0) 01/04/25 22:10 BUN 11 mg/dL (7-25) 01/04/25 22:10 Creatinine 0.88 mg/dL (0.70-1.30) 01/04/25 22:10 Est GFR (CKD-EPI) > 60.0 mL/Min 01/04/25 22:10 Glucose 155 mg/dL (70-100) H 01/04/25 22:10 Calcium 8.8 mg/dL (8.6-10.3) 01/04/25 22:10 Total Bilirubin 0.4 mg/dl (0.3-1.0) 01/04/25 22:10 AST 21 U/L (13-39) 01/04/25 22:10 ALT 9 U/L (7-52) 01/04/25 22:10 Alkaline Phosphatase 140 U/L (34-104) H 01/04/25 22:10 Total Creatine Kinase 30 U/L (30-223) 01/04/25 22:10 Troponin I High Sens 135 ng/L (0-20) H* 01/04/25 23:22 B-Natriuretic Peptide 268.0 pg/mL (5-100) H 01/04/25 22:10 Total Protein 6.6 gm/dL (6.4-8.9) 01/04/25 22:10 Albumin 3.8 gm/dL (3.5-5.7) 01/04/25 22:10 Globulin 2.8 gm/dL 01/04/25 22:10 Albumin/Globulin Ratio 1.4 01/04/25 22:10 ABG Interpretation ABG results: 01/04/25 22:19 ABG pH 7.35 ABG pCO2 42.2 ABG pO2 91.5 ABG HCO3 23.0 ABG Total CO2 24.3 ABG O2 Saturation 96.7 ABG O2 Content 6.8 ABG Base Excess -2.4 Assessment & Plan Assessment/Plan (1) Non-ST elevation UT (NSTEMI): Plan 1. Acute on chronic (2 to 3 L nasal cannula at home) hypoxic respiratory failure presenting with tachypnea and use of accessory muscles requiring BiPAP in the emergency room, oxygen titrated down to 4 L due to suspected COPD exacerbation, patient does have bilateral wheezing CT scan of the chest did not reveal any significant infiltrate, no pulmonary emboli She does have underlying cardiac and pulmonary sarcoidosis, in the past complicated by aspergillomatreated with itraconazole in 2019 For now antibiotic therapy, bronchodilators, systemic and inhaled steroids 2. Abnormal troponins, no known history of coronary artery disease, probably MItype II Denies any chest pain, EKG nonischemic Patient was placed on heparin drip in emergency room Will consult cardiology 3. 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, currently normal sinus rhythm , Continue with antiarrhythmic therapy, Xarelto on hold while patient is on heparin therapy IP vs OBS Justification Based on differential dx, clinical care plan, and risk of adverse events, if untreated, in my clinical judgement this patient requires an acute care setting as: INPATIENT because of an expectation ofan over 2 midnight stay. Estimated length of stay (# of days): 3 Documented By: Elsie Leonard MD 01/05/25 0354 Signed By: 01/05/25 0414 [facility]07-01-2025 Discharge summary Author Hoang Conner [facility] Note Date/Time November 12, 2024 2:14p m [facility] [address] [place] [address] Discharge Summary Signed Patient: Mary Mcadams MR#: [id number] : 1955 Acct:[id number] Age/Sex: 69 / M Adm Date: 5 Loc: Room: 4J5672-[address]: Hoang Conner DO Copies to: DO Hoang Waller DO~ Providers Date of Discharge: 11/12/24 Discharging Provider: Hoang Conner Primary Care Provider: Adam Del Valle Consults: 11/11/24 03:15 Consult to Occupational Therapy Routine Comment: Physician Instructions: Consult to OT for:: Evaluation and Treat Consult to Physical Therapy Routine Comment: Physician Instructions: Consult to PT for:: Evaluation and Treat Discharge Diagnosis (1) Acute exacerbation of chronic obstructive pulmonary disease (COPD): (2) Chronic respiratory failure with hypoxia: (3) Pulmonary sarcoidosis: (4) Bullous emphysema: (5) 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: Final Diagnosis Final Discharge Diagnosis: 6. Cystitis with urinary tract infection Summary Hospital Course Hospital course: 69-year-old male who presents to the emergency department 11/10/2024 with shortness of breath with increasing severity over the past week. He was tachypneic and tachycardic with severe respiratory distress on his presentation. He was started on stress dose Solu-Medrol 60 mg IV push every 6 hours for exacerbation of his COPD and sarcoid lung disease. He has severe bullous emphysema associated with this ongoing chronic process. Also this was nitrite positive and mildly suggestive of urinary tract infection. He is started on IV Rocephin. He was treated with nebulized ipratropium/albuterol scheduled 4 timesdaily and the patient's pulmonary status improved significantly. On day of discharge he is feeling anxious to go home and at this time feels that he can doso without issue. Given his unexpected and rapid clinical improvement I discussed with him a plan of care for discharge. He will receive 3 more days ofcephalosporin antibiotic for continued treatment of UTI given his ongoing straight catheterizations at home. Additionally a prolonged prednisone taper starting at 60 mg daily was also provided. Walk test was ordered for any increasing need of home O2 beyond prior baseline. Physical Examination: GENERAL APPEARANCE: Alert, up in bed AAOx3 CARDIAC: Normal S1 and S2. No S3, S4 or murmurs. LUNGS: Clear to auscultation anterolaterally with faint end expiratory wheezing ABDOMEN: Positive bowel sounds. Soft, nontender. No guarding or signs of an acute abdomen MUSCULOSKELETAL: No joint erythema or tenderness. EXTREMITIES: No clubbing, cyanosis or edema NEUROLOGICAL: No focal deficits SKIN: Skin normal color, texture and turgor with no lesions or eruptions. PSYCHIATRIC: Appropriate mood and affect 40 minutes were spent coordinating the discharge of this patient Time Spent with Patient Time spent providing/coordinating discharge services (# min): 40 Discharge Plan Discharge Plan Patient Disposition[place] [facility] [place]: No Activity Restriction Diet: Low-Fat and Low-Sodium Additional Instructions: Home Health to manage care: - Full code - Routine vital signs - Medication management and education - Oxygen at 3L per nasal cannula at all times - Continue to straight cath per chronic orders Instructions: Know your Meds Prescriptions: New guaifenesin 600 mg Tablet Extended Release 12hr 1,200 mg PO BID 5 Days Qty: 20 0RF prednisone 10 mg tablet 10 mg PO DAILY Qty: 39 0RF Rx Instructions: take 60mg (6 tabs aday) for 3 days, then 40mg (4tabs) for 3 days, then 20mg (2tabs) for 3 days, then 10mg (1tab) for 3 days. cefpodoxime 200 mg tablet 200 mg PO BID 3 Days Qty: 6 0RF Rx Instructions: must administer with a meal/food Continued ipratropium-albuterol 0.5 mg-3 mg(2.5 mg base)/3 mL solution for nebulization 3 ml inhalation QID 30 Days Qty: 360 11RF potassium chloride [Klor-Con 10] 10 mEq tablet extended release 10 meq PO DAILY 30 Days Qty: 30 5RF tamsulosin 0.4 mg capsule See Rx Instructions .ROUTE .COMPLEX Qty: 60 11RF Dose Instruction: TAKE 1 CAPSULE BY MOUTH TWICE DAILY Rx Instructions: TAKE 1 CAPSULE BY MOUTH TWICE DAILY Xarelto 20 mg Tablet 20 mg PO DAILY.WITH.BKFAST 30 Days Qty: 30 0RF Rx Instructions: Further refills per Cardiology with Dr. Gonzalez. multivitamin with minerals Capsule 1 cap PO DAILY Qty: 90 3RF atorvastatin 40 mg Tablet 40 mg PO QPM 30 Days Qty: 30 12RF pantoprazole 40 mg Tablet,Delayed Release (Dr/Ec) 40 mg PO DAILY.AC.BKFAST Qty: 0 0RF dofetilide 250 mcg capsule 250 mcg PO Q12H magnesium hydroxide [Milk of Magnesia] 400 mg/5 mL suspension 5 ml PO DAILY PRN (Reason: constipation) Biofreeze (menthol) 4 % gel 1 applic topical DAILY PRN (Reason: pain) acetaminophen 500 mg Tablet 500 mg PO Q4HR PRN (Reason: Pain Scale 1 - 3 or fever) prednisolone acetate 1 % drops,suspension 1 drp Eye-Left QID finasteride 5 mg tablet 5 mg PO DAILY latanoprost 0.005 % drops 1 drp ophthalmic (eye) DAILY (DME) Oxygen Unit See Rx Instructions .Route Rx Instructions: 2 liters at HS and napping [facility] Ellipta 200-62.5-25 mcg blister with device 1 inh inhalation DAILY Qty: 180 4RF Rx Instructions: Rinse after use metoprolol succinate 25 mg tablet extended release 24 hr 25 mg PO DAILY furosemide 20 mg tablet 20 mg PO DAILY PRN (Reason: edema) Rx Instructions: Right leg edema magnesium oxide 400 mg (241.3 mg magnesium) tablet 400 mg PO DAILY Other Ambulatory Orders: Initiate Home Health (Routine) Timeframe: 1 Day Location: Determined by Patient Ordered By: Hoang CAR Home Medical Equipment (Routine) Timeframe: 1 Day Location: Determined by Patient Ordered By: Hoang Conner Follow Up: Adam Del Valle DO [Primary Care Provider, Internal Medicine] - 11/18/24 11:45 am Referral Note: Follow-up with your Primary Care Provider, call office to reschedule if needed. Continuity of Care Document Health Concerns: A [facility] screening has identified you as FRAIL or AT RISK FOR FRAILTY. This puts you at a higher risk for infection, illness, falls,and other injuries. Here are four ways to help you reduce your risk of frailty: 1. IDENTIFY EARLY SIGNS OF FRAILTY ? Discuss contributing factors and concerns with your doctor 2. BE ACTIVE ? Walking and light strengthening exercises will help reduce weakness 3. EAT WELL ? Aim for three healthy meals a day that are high in protein 4. THINK POSITIVE ? Keep your mind active by being sociable and continuing to learn References: Stay Strong: Four Ways to Beat the Frailty Risk https://www.[facility].org/health/yvcwxeeb-xyn-asotiailys/jtqw-vukjcd-ocpp- ccon-dc-mhrw-cot-rcaicmi-trih Exam Physical Exam Vital Signs: Temp Pulse Resp BP Pulse Ox O2 Del Method O2 Flow Rate 97.3 F L 79 16 118/70 100 Room Air 2 11/12/24 07:54 11/12/24 12:43 11/12/24 12:43 11/12/24 11:39 11/12/24 11:39 11/12/24 11:39 11/12/24 08:59 Diagnostic Studies Completed and Pending Studies Pending studies at discharge: 11/10/24 23:15 Urine Culture Stat 11/10/24 23:18 ECG 12 lead ECG Stat 11/11/24 03:15 Sputum Culture Routine 11/13/24 05:00 Basic Metabolic Panel [CHEM] IN AM Complete Blood Count Auto Diff IN AM 11/14/24 05:00 Basic Metabolic Panel [CHEM] IN AM Preliminary micro results at discharge 11/10/24 23:15 Urine Culture - Preliminary Urine - Clean-Voided Midstream 30,000 colonies/ml mixed bacterial skin contaminants including mixed gram negative bacilli - 1 Day Labs on day of discharge: 11/12/24 08:00: Corrected WBC 18.4 H, Uncorrected WBC Count 18.4 H, RBC 3.34 L, Hgb 8.8 L, Hct 27.0 L, MCV 80.9 L, MCH 26.5 L, MCHC 32.7, RDW 16.5 H, Plt Count 273, MPV 7.9, Neut % (Auto) 93.0, Lymph % (Auto) 4.1, Dickinson % (Auto) 2.8, Eos % (Auto) 0.0, Baso % (Auto) 0.1, Nucleat RBC Rel Count 0.0, Neut # (Auto) 17.1 H, Lymph # (Auto) 0.7 L, Dickinson # (Auto) 0.5, Eos # (Auto) 0.0, Baso # (Auto) 0.0, PHA Creatinine Clear 65.31, Sodium 135 L, Potassium 4.1, Chloride 100, Carbon Dioxide 28.1, Anion Gap 11.0, BUN 22, Creatinine 0.92, Est GFR (CKD-EPI) > 60.0, Glucose 144 H, Calcium 9.1 11/11/24 15:39: Urine Color Light-yellow, Urine Appearance Clear, Urine pH 5.5, Ur Specific Mcintosh 1.012, Urine Protein Negative, Urine Glucose (UA) 50 H, Urine Ketones Negative, Urine Occult Blood Trace H, Urine Nitrite Positive H, Urine Bilirubin Negative, Urine Urobilinogen Normal, Ur Leukocyte Esterase 2+ H, Urine RBC 1-2, Urine WBC 20-49 H, Ur Squamous Epith Cells N/A, Urine Bacteria Rare, Hyaline Casts 9-19 H, Urine Mucus Rare Documented By: Hoang Conner DO 11/12/24 12 51 Signed By: <Electronically signed by Hoang Conner DO> 11/12/24 [facility] Work Phone: [phone]) 403-733707-01-[address] [address] Discharge Summary Signed Patient: Mary Mcadams MR#: [id number] : 1955 Acct:[id number] Age/Sex: 69 / M Adm Date: 5 Loc: Room: [address] [place] [address]: Hoang Conner DO Copies to: DO Hoang Waller, ~ Providers Date of Discharge: 11/12/24 Discharging Provider: Hoang Conner Primary Care Provider: Adam Del Valle Consults: 11/11/24 03:15 Consult to Occupational Therapy Routine Comment: Physician Instructions: Consult to OT for:: Evaluation and Treat Consult to Physical Therapy Routine Comment: Physician Instructions: Consult to PT for:: Evaluation and Treat Discharge Diagnosis (1) Acute exacerbation of chronic obstructive pulmonary disease (COPD): (2) Chronic respiratory failure with hypoxia: (3) Pulmonary sarcoidosis: (4) Bullous emphysema: (5) 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: Final Diagnosis Final Discharge Diagnosis: 6. Cystitis with urinary tract infection Summary Hospital Course Hospital course: 69-year-old male who presents to the emergency department 11/10/2024 with shortness of breath with increasing severity over the past week. He was tachypneic and tachycardic with severe respiratory distress on his presentation. He was started on stress dose Solu-Medrol 60 mg IV push every 6 hours for exacerbation of his COPD and sarcoid lung disease. He has severe bullous emphysema associated with this ongoing chronic process. Also this was nitrite positive and mildly suggestive of urinary tract infection. He is started on IV Rocephin. He was treated with nebulized ipratropium/albuterol scheduled 4 timesdaily and the patient's pulmonary status improved significantly. On day of discharge he isfeeling anxious to go home and at this time feels that he can doso without issue. Given his unexpected and rapid clinical improvement I discussed with him a plan of care for discharge. He will receive 3 more days ofcephalosporin antibiotic for continued treatment of UTI given his ongoing straight catheterizations at home. Additionally a prolonged prednisone taper starting at 60 mg daily was also provided. Walk test was ordered for any increasing need of home O2 beyond prior baseline. Physical Examination: GENERAL APPEARANCE: Alert, up in bed AAOx3 CARDIAC: Normal S1 and S2. No S3, S4 or murmurs. LUNGS: Clear to auscultation anterolaterally with faint end expiratory wheezing ABDOMEN: Positive bowel sounds. Soft, nontender. No guarding or signs of an acute abdomen MUSCULOSKELETAL: No joint erythema or tenderness. EXTREMITIES: No clubbing, cyanosis or edema NEUROLOGICAL: No focal deficits SKIN: Skin normal color, texture and turgor with no lesions or eruptions. PSYCHIATRIC: Appropriate mood and affect 40 minutes were spent coordinating the discharge of this patient Time Spent with Patient Time spent providing/coordinating discharge services (# min): 40 Discharge Plan Discharge Plan Patient Disposition: [place] [facility] [place]: No Activity Restriction Diet: Low-Fat and Low-Sodium Additional Instructions: Home Health to manage care: - Full code - Routine vital signs - Medication management and education - Oxygen at 3L per nasal cannula at all times - Continue to straight cath per chronic orders Instructions: Know your Meds Prescriptions: New guaifenesin 600 mg Tablet Extended Release 12hr 1,200 mg PO BID 5 Days Qty: 20 0RF prednisone 10 mg tablet 10 mg PO DAILY Qty: 39 0RF Rx Instructions: take 60mg (6 tabs aday) for 3 days, then 40mg (4tabs) for 3 days, then 20mg (2tabs) for 3 days, then 10mg (1tab) for 3 days. cefpodoxime 200 mg tablet 200 mg PO BID 3 Days Qty: 6 0RF Rx Instructions: must administer with a meal/food Continued ipratropium-albuterol 0.5 mg-3 mg(2.5 mg base)/3 mL solution for nebulization 3 ml inhalation QID 30 Days Qty: 360 11RF potassium chloride [Klor-Con 10] 10 mEq tablet extended release 10 meq PO DAILY 30 Days Qty: 30 5RF tamsulosin 0.4 mg capsule See Rx Instructions .ROUTE .COMPLEX Qty: 60 11RF Dose Instruction: TAKE 1 CAPSULE BY MOUTH TWICE DAILY Rx Instructions: TAKE 1 CAPSULE BY MOUTH TWICE DAILY Xarelto 20 mg Tablet 20 mg PO DAILY.WITH.BKFAST 30 Days Qty: 30 0RF Rx Instructions: Further refills per Cardiology with Dr. Gonzalez. multivitamin with minerals Capsule 1 cap PO DAILY Qty: 90 3RF atorvastatin 40 mg Tablet 40 mg PO QPM 30 Days Qty: 30 12RF pantoprazole 40 mg Tablet,Delayed Release (Dr/Ec) 40 mg PO DAILY.AC.BKFAST Qty: 0 0RF dofetilide 250 mcg capsule 250 mcg PO Q12H magnesium hydroxide [Milk of Magnesia] 400 mg/5 mL suspension 5 ml PO DAILY PRN (Reason: constipation) Biofreeze (menthol) 4 % gel 1 applic topical DAILY PRN (Reason: pain) acetaminophen 500 mg Tablet 500 mg PO Q4HR PRN (Reason: Pain Scale 1 - 3 or fever) prednisolone acetate 1 % drops,suspension 1 drp Eye-Left QID finasteride 5 mg tablet 5 mg PO DAILY latanoprost 0.005 % drops 1 drp ophthalmic (eye) DAILY (DME) Oxygen Unit See Rx Instructions .Route Rx Instructions: 2 liters at HS and napping DME [facility] Ellipta 200-62.5-25 mcg blister with device 1 inh inhalation DAILY Qty: 180 4RF Rx Instructions: Rinse after use metoprolol succinate 25 mg tablet extended release 24 hr 25 mg PO DAILY furosemide 20 mg tablet 20 mg PO DAILY PRN (Reason: edema) Rx Instructions: Right leg edema magnesium oxide 400 mg (241.3 mg magnesium) tablet 400 mg PO DAILY Other Ambulatory Orders: Initiate Home Health (Routine) Timeframe: 1 Day Location: Determined by Patient Ordered By: Hoang CAR Home Medical Equipment (Routine) Timeframe: 1 Day Location: Determined by Patient Ordered By: Hoang Conner Follow Up: Adam Del Valle DO [Primary Care Provider, Internal Medicine] - 11/18/24 11:45 am Referral Note: Follow-up with your Primary Care Provider, call office to reschedule if needed. Continuity of Care Document Health Concerns: A [facility] screening has identified you as FRAIL or AT RISK FOR FRAILTY. This puts you at a higher risk for infection, illness, falls,and other injuries. Here are four ways to help you reduce your risk of frailty: 1. IDENTIFY EARLY SIGNS OF FRAILTY ? Discuss contributing factors and concerns with your doctor 2. BE ACTIVE ? Walking and light strengthening exercises will help reduce weakness 3. EAT WELL ? Aim for three healthy meals a day that are high in protein 4. THINKPOSITIVE ? Keep your mind active by being sociable and continuing to learn References: Stay Strong:Four Ways to Beat the Frailty Risk https://www.[facility].org/health/sxtpptpd-qne-hjxjpofhuw/st sr-aehtnv-inkh- sqqg-jt-gbqz-fqv-qilfcdi-iynv Exam Physical Exam Vital Signs: Temp Pulse Resp BP Pulse Ox O2 Del Method O2 Flow Rate 97.3 F L 79 16 118/70 100 Room Air 2 11/12/24 07:54 11/12/24 12:43 11/12/24 12:43 11/12/24 11:39 11/12/24 11:39 11/12/24 11:39 11/12/24 08:59 Diagnostic Studies Completed and Pending Studies Pending studies at discharge: 11/10/24 23:15 Urine Culture Stat 11/10/24 23:18 ECG 12 lead ECG Stat 11/11/24 03:15 Sputum Culture Routine 11/13/24 05:00 Basic Metabolic Panel [CHEM] IN AM Complete Blood Count Auto Diff IN AM 11/14/24 05:00 Basic Metabolic Panel [CHEM] IN AM Preliminary micro results at discharge 11/10/24 23:15 Urine Culture - Preliminary Urine - Clean-Voided Midstream 30,000 colonies/ml mixed bacterial skin contaminants including mixed gram negative bacilli - 1 Day Labs on day of discharge: 11/12/24 08:00: Corrected WBC 18.4 H, Uncorrected WBC Count 18.4 H, RBC 3.34 L, Hgb 8.8 L, Hct 27.0L, MCV 80.9 L, MCH 26.5 L, MCHC 32.7, RDW 16.5 H, Plt Count 273, MPV 7.9, Neut % (Auto) 93.0, Lymph% (Auto) 4.1, Dickinson % (Auto) 2.8, Eos % (Auto) 0.0, Baso % (Auto) 0.1, Nucleat RBC Rel Count 0.0, Neut # (Auto) 17.1 H, Lymph # (Auto) 0.7 L, Dickinson # (Auto) 0.5, Eos # (Auto) 0.0, Baso # (Auto) 0.0, PHA Creatinine Clear 65.31, Sodium 135 L, Potassium 4.1, Chloride 100, Carbon Dioxide 28.1, Anion Gap 11.0, BUN 22, Creatinine 0.92, Est GFR (CKD-EPI) > 60.0, Glucose 144 H, Calcium 9.1 11/11/24 15:39: Urine Color Light-yellow, Urine Appearance Clear, Urine pH 5.5, Ur Specific Gravity1.012, Urine Protein Negative, Urine Glucose (UA) 50 H, Urine Ketones Negative, Urine Occult Blood Trace H, Urine Nitrite Positive H, Urine Bilirubin Negative, Urine Urobilinogen Normal, Ur LeukocyteEsterase 2+ H, Urine RBC 1-2, Urine WBC 20-49 H, Ur Squamous Epith Cells N/A, Urine Bacteria Rare, H yaline Casts 9-19 H, Urine Mucus Rare Documented By: Hoang Conner DO 11/12/24 12 51 Signed By: 11/12/24 1414 [facility]06-30-2025 Progress note Author Hoang Conner [facility] Note Date/Time November 11, 2024 1:12 pm [facility] [address] [place] [address] Progress Note Signed Patient: Mary Mcadams MR#: [id number] : 1955 Acct:[id number] Age/Sex: 69 / M Adm Date: 5 Loc: Room: [address] [place] [address] Type: ADM IN Attending Dr: Hoang Conner DO Copies to: ~ Date of Service: 11/11/2024 Progress Narrative Note PROGRESS NOTE Progress Note: Patient was seen and examined at the bedside early this afternoon. He is alert and oriented x 3. His breathing appears to be nonlabored at the moment and he is about to eat lunch. On examination he has clear breath sounds in the posterior regions. He overall endorses generalized malaise and feeling weak. Likely iron deficiency given his microcytic anemia. Will check iron studies. Continue antibiotic therapy with Rocephin for coverage of UTI. He is mildly tachycardic despite home dofetilide which. Will monitor on telemetry and continue present care Documented By: Hoang Conner DO 11/11/24 13 10 Signed By: <Electronically signed by Hoang Conner DO> 11/11/24 1312 [facility] Work Phone: 1(129) 817-151206-30-[address] [address] Progress Note Signed Patient: Mary Mcadams MR#: [id number] : 1955 Acct:[id number] Age/Sex: 69 / M Adm Date: 5 Loc: Room: 0T9636-4 Type: ADM IN Attending Dr: Hoang Conner DO Copies to: ~ Date of Service: 11/11/2024 Progress Narrative Note PROGRESS NOTE Progress Note: Patient was seen and examined at the bedside early this afternoon. He is alert and oriented x 3. His breathing appears to be nonlabored at the moment and he is about to eat lunch. On examination he has clear breath sounds in the posterior regions. He overall endorses generalized malaise and feelingweak. Likely iron deficiency given his microcytic anemia. Will check iron studies. Continue antibiotic therapy with Rocephin for coverage of UTI. He is mildly tachycardic despite home dofetilide which. Will monitor on telemetry and continue present care Documented By: Hoang Conner DO 11/11/24 13 10 Signed By: 11/11/[address] [place], [place] [id number] History and physical note Author Silvano Reed [facility] Note Date/Time November 11, 2024 3:30 am [facility] [address] [place] [address] Hospitalist H&P Signed Patient: Mary Mcadams MR#: [id number] : 1955 Acct:[id number] Age/Sex: 69 / M Adm Date: 5 Loc: ER Room: Type: [facility] ER Attending Dr: Copies to: Adam Del Valle,DO Hasmukh Vides, DO Silvano Reed DO~ HPI DATE OF EXAMINATION: 11/11/24 CHIEF COMPLAINT: Severe shortness of breath, tripod breathing, can only walk 5 steps. HISTORY OF PRESENT ILLNESS: This is a 77-year-old man who was brought to the emergency room here around midnight with a complaint of severe shortness of breath. The patient reports that this has been getting gradually worse over the last week. It has been veryhot and humid weather here in the end of October. He is supposed to wear oxygen athome at 2 L all the time but he admits that he really only wears it when sleeping at nighttime. In the emergency room he was described as having pursed lip breathing and being in a tripod position. He was provided with multiple rounds of nebulizer treatments, IV magnesium, and Solu-Medrol. Despite that thepatient reported he still felt very short of breath and a lot of air hunger and so he did not want to go home. He does have an extensive history. He has well-known severe COPD. 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 He is maintained on 5 mg of prednisone daily at the direction of his PCP. He also hasparoxysmal atrial fibrillation on dofetilide and anticoagulated with Xarelto. He has a history of heart failure with moderately reduced ejection fraction but he reports that he saw Dr. Montes who told him that he no longer needs to take Entresto. He also has a history of acoustic neuroma. He has a history of prostate hypertrophy and used to straight catheterize himself twice a day at home. Back in June he was hospitalized with a urinary tract infection and aFoley catheter was placed. He now reports that he has good urine and that he really only does a self-catheterization on himself once a day. He denies any acute urinary infection symptoms such as pain or burning or difficulty starting his stream or foul-smelling urine. Review of Systems Review of Systems Review of systems: 10 systems are reviewed and are negative except as mentioned elsewhere in the documentation. [facility] Medical History (Updated 11/11/24 @ 03:27 by Silvano Reed DO) Bullous emphysema 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 Benign prostatic hyperplasia with lower urinary tract symptoms Atrial fibrillation Pulmonary sarcoidosis Chronic respiratory failure with hypoxia Carotid stenosis, right CTA: 90% right ICA - 02/2024 Chronic HFrEF (heart failure with reduced ejection fraction) Nonischemic cardiomyopathy Echo: LVEF 45-50%, normal RV size/function, mild aortic root dilatation 4.0 cm - 02/2024 Hyponatremia Anemia Alcohol dependence Hypertension History of cardioversion Abdominal pain Cardiac sarcoidosis History of aspergilloma Acoustic neuroma Lumbar spondylosis Gastroesophageal reflux disease with esophagitis without hemorrhage Diverticulosis Personal history of colonic polyps Surgical History H/O colonoscopy (~10/2021) repeat 5 years History of arthroscopic knee surgery Family History Brother Heart disease Legacy FamHx Relation: Brother(s) Father Cancer Legacy FamHx Problem: Diagnosed with Cancer Mother Heart disease Myocardial infarction Diabetes Social History Smoking Status: Former smoker Substance Use Type: None Substance Abuse Comment: quit smoking in February 2024 Meds Medications and Allergies Allergies No Known Allergies Allergy (Verified 11/10/24 22:44) Home Medications finasteride 5 mg tablet 5 mg PO DAILY 09/08/23 [History Confirmed 11/10/24] latanoprost 0.005 % eye drops 1 drp ophthalmic (eye) DAILY 10/12/23 [History Confirmed 11/10/24] Oxygen 10/23/23 [History Confirmed 11/11/24] fluticasone fur. 200 mcg-umeclid 62.5 mcg-vilant 25 mcg inhalat.powder (Trelegy Ellipta) 1 inh inhalation DAILY #180 ea 10/23/23 [Rx Confirmed 11/10/24] ipratropium 0.5 mg-albuterol 3 mg (2.5 mg base)/3 mL nebulization soln 3 ml inhalation QID 30 days #360 mL 01/30/24 [Rx Confirmed 11/10/24] rivaroxaban 20 mg tablet (Xarelto) 20 mg PO DAILY.WITH.BKFAST 30 days #30 tabs 02/04/24 [Rx Confirmed 11/10/24] multivitamin with minerals 1 cap PO DAILY #90 caps 03/19/24 [Rx Confirmed 11/10/24] atorvastatin 40 mg tablet 40 mg PO QPM 30 days #30 tabs 03/20/24 [Rx Confirmed 11/10/24] potassium chloride 10 mEq tablet,extended release (Klor-Con) 10 meq PO DAILY 30 days #30 tabs 03/27/24 [Rx Confirmed 11/10/24] furosemide 20 mg tablet 20 mg PO BID 06/03/24 [History Confirmed 11/10/24] magnesium oxide 400 mg (241.3 mg magnesium) tablet 400 mg PO DAILY 06/03/24 [History Confirmed 11/10/24] metoprolol succinate 25 mg tablet,extended release 24 hr 25 mg PO DAILY 06/03/24[History Confirmed 11/10/24] acetaminophen 500 mg tablet 1,000 mg (2 x 500 mg) PO Q6HR PRN Pain Scale 1 - 3 or fever #0 tabs 07/09/24 [Rx Confirmed 11/10/24] pantoprazole 40 mg tablet,delayed release 40 mg PO DAILY.AC.BKFAST #0 tabs 07/09/24 [Rx Confirmed 11/10/24] tamsulosin 0.4 mg capsule See Rx Instructions .Route .COMPLEX #60 caps 08/11/24 [Rx Confirmed 11/10/24] dofetilide 250 mcg capsule 250 mcg PO Q12H 11/11/24 [History Confirmed 11/11/24] magnesium hydroxide 400 mg/5 mL oral suspension (Milk of Magnesia) 5 ml PO DAILYPRN constipation 11/11/24 [History Confirmed 11/11/24] menthol 4 % topical gel (Biofreeze (menthol)) 1 applic topical DAILY PRN pain 11/11/24 [History Confirmed 11/11/24] Allergy/Medication Comments: Please note that the home medication list may contain elements that are not accurate. This list of home medications will be updated during the hospital stay as more information becomes available. Exam Physical Exam Vital Signs: Temp Pulse Resp BP Pulse Ox O2 Del Method O2 Flow Rate 97.6 F 113 H 22 128/85 99 Nasal Cannula 2 11/11/24 02:37 11/11/24 02:37 11/11/24 02:37 11/11/24 02:37 11/11/24 02:42 11/11/24 02:42 11/11/24 02:42 Narrative: GEN: Seen in ER bay 16 he is lying perfectly flat on the ER cot. He does have increased work of breathing. Head: Normal Cephalic, Atraumatic. Eyes: Conjunctiva and sclera clear bilaterally. Nose: External nose and nares normal bilaterally. Mouth: Lips and tongue normal. Neck: No JVD. No thyromegaly. No lymphadenopathy. Lungs: Coarse and distant breath sounds throughout. Mild wheezing throughout all lung [place]on. Heart: Distant to auscultation. Mildly tachycardic rhythm on the monitor. I think this is because of recent albuterol nebulizer treatments. To auscultationI hear no murmurs, rubs, or gallops. Abdomen: Soft, normal bowel sounds, no rigidity, guarding, or acute peritoneal signs. Extremities: No swelling or cords in the calves bilaterally, absolutely no edema in the ankles or in his legs at all, and these are equal bilaterally. Skin: No systemic rashes or lesions. Psychiatric: Calm. Conversant. Cooperative. Neuro: Awake, Alert, and Oriented x 3. No focal or lateralizing deficits. Results - Hospitalist H&P Lab Results Labs: Laboratory Last Values Corrected WBC 6.4 X10E3/uL (4.1-10.5) 11/10/24 23:30 Uncorrected WBC Count 6.4 x10E3/uL (4.1-10.5) 11/10/24 23: RBC 3.90 x10E6/uL (3.90-5.60) 11/10/24 23: Hgb 10.5 g/dL (13.0-17.0) L 11/10/24 23: Hct 31.6 % (38.8-50.0) L 11/10/24 23: MCV 80.8 fl (83.5-101) L 11/10/24 23: MCH 27.0 pg (27.5-35.2) L 11/10/24 23: MCHC 33.4 g/dL (32.5-35.6) 11/10/24 23: RDW 16.5 % (12.0-14.8) H 11/10/24 23: Plt Count 262 x10E3/uL (150-450) 11/10/24 23: MPV 7.9 fl (6.6-10.1) 11/10/24 23: Neut % (Auto) 66.5 % (.) 11/10/24 23: Lymph % (Auto) 18.7 % (.) 11/10/24 23: Dickinson % (Auto) 9.3 % (.) 11/10/24: Eos % (Auto) 5.0 % (.) 11/10/24: Baso % (Auto) 0.5 % (.) 11/10/24: Nucleat RBC Rel Count 0.1 /100 WBC (0-0.5) 11/10/24: Neut # (Auto) 4.3 x10E3/uL (1.8-7.7) 11/10/24 23:30 Lymph # (Auto) 1.2 x10E3/uL (1.00-4.8) 11/10/24 23:30 Dickinson # (Auto) 0.6 x10E3/uL (0.0-0.8) 11/10/24 23:30 Eos # (Auto) 0.3 x10E3/uL (0.0-0.45) 11/10/24 23:30 Baso # (Auto) 0.0 x10E3/uL (0.0-0.2) 11/10/24 23:30 Monocyte Dist Width 18.48 % (0.00-20.00) 11/10/24 23: PHA Creatinine Clear 77.17 11/10/24 23: Sodium 133 mmol/L (136-145) L 11/10/24 23: Potassium 4.1 mmol/L (3.5-5.1) 11/10/24 23: Chloride 98 mmol/L (98-107) 11/10/24 23: Carbon Dioxide 28.0 mmol/L (21.0-31.0) 11/10/24 23: Anion Gap 11.1 mEq/L (6.0-15.0) 11/10/24 23: BUN 14 mg/dL (7-25) 11/10/24 23: Creatinine 0.80 mg/dL (0.70-1.30) 11/10/24 23:30 Est GFR (CKD-EPI) > 60.0 mL/Min 11/10/24 23: Glucose 100 mg/dL (70-100) 11/10/24 23: Calcium 9.8 mg/dL (8.6-10.3) 11/10/24: Magnesium 1.6 mg/dL (1.9-2.7) L 11/10/24: Total Bilirubin 0.6 mg/dl (0.3-1.0) 11/10/24 23:30 AST 19 U/L (13-39) 11/10/24 23:30 ALT 10 U/L (7-52) 11/10/24 23:30 Alkaline Phosphatase 149 U/L (34-104) H 11/10/24 23:30 Total Creatine Kinase 27 U/L (30-223) L 11/10/24 23:30 Troponin I High Sens 4 ng/L (0-20) 11/10/24 23:30 B-Natriuretic Peptide 187.0 pg/mL (5-100) H 11/10/24 23:30 Total Protein 7.5 gm/dL (6.4-8.9) 11/10/24 23:30 Albumin 3.9 gm/dL (3.5-5.7) 11/10/24 23:30 Globulin 3.6 gm/dL 11/10/24 23:30 Albumin/Globulin Ratio 1.1 11/10/24 23:30 Urine Color Light-yellow (Yellow) 11/10/24 23:15 Urine Appearance Clear (Clear) 11/10/24 23:15 Urine pH 5.5 (5.0-9.0) 11/10/24 23:15 Ur Specific Mcintosh 1.010 (1.001-1.030) 11/10/24 23:15 Urine Protein Negative mg/dL (Negative) 11/10/24 23:15 Urine Glucose (UA) Normal mg/dL (Normal) 11/10/24 23:15 Urine Ketones Negative (Negative) 11/10/24 23:15 Urine Occult Blood Negative (Negative) 11/10/24 23:15 Urine Nitrite Positive (Negative) H 11/10/24 23:15 Urine Bilirubin Negative (Negative) 11/10/24 23:15 Urine Urobilinogen Normal mg/dL (Normal) 11/10/24 23:15 Ur Leukocyte Esterase 4+ (Negative) H 11/10/24 23:15 Urine RBC 3-4 /HPF (0-4) 11/10/24 23:15 Urine WBC Innumerable /HPF (0-4) H 11/10/24 23:15 Urine WBC Clumps Many /LPF (None Seen) H 11/10/24 23:15 Ur Squamous Epith Cells 1-2 /HPF (0-2) 11/10/24 23:15 Urine Bacteria 2+ /HPF (None Seen) H 11/10/24 23:15 Hyaline Casts 9-19 /LPF (0-8) H 11/10/24 23:15 Urine Mucus Rare /LPF 11/10/24 23:15 Assessment & Plan Assessment/Plan (1) Acute exacerbation of chronic obstructive pulmonary disease (COPD): (2) Chronic respiratory failure with hypoxia: (3) Pulmonary sarcoidosis: (4) Bullous emphysema: (5) 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: (6) Corticosteroid dependence: Plan Assessment: Acute exacerbation of chronic obstructive pulmonary disease, with well-known bullous emphysema. Acute on chronic hypoxic respiratory failure, due to the above. Chronic corticosteroid dependence. Pulmonary sarcoidosis. Additional long-term medical problems: 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. Continue anticoagulation with Xarelto. Continue antiarrhythmic with dofetilide. History of QT prolongation. Use telemetry monitoring here in the hospital. Hypertension. Continue Toprol. Hyponatremia. Check daily BMPs. Prostate hypertrophy. Used to straight cath twice a day at home. After [place] catheter was used for UTI in June 2024 now early straight caths. History of heart failure with mildly reduced ejection fraction which most of improved I see no longer requires Entresto. Plan: Hospital admission, inpatient status. Patient is at high risk for COPD exacerbation worsening and opportunistic infections due to emphysema, COPD, and pulmonary sarcoidosis. Solu-Medrol 60 mg IV every 6 hours. DuoNeb 4 times daily with albuterol every 3 hours for breakthrough wheezing. Requesting a sputum culture. Not certain if he will be able to expectorate this. Continuous telemetry monitoring. Daily weights, ideally on a standing scale. Nebulized budesonide, twice a day. Check daily labs. Right now I do not see compelling evidence to start antibiotics for the COPD. I prefer to get a urine sample from a straight cath so he should get a straight cath UA 1 time and then decision to treat UTI based on that. He may have chronic bacterial colonization of the bladder due to his long-term use of straight catheterization over the past few years. It seems nice that he no longer really needs to rely on straight catheterization now. IP vs OBS Justification Based on differential dx, clinical care plan, and risk of adverse events, if untreated, in my clinical judgement this patient requires an acute care setting as: INPATIENT because of an expectation of an over 2 midnight stay. Estimated length of stay (# of days): 3 Documented By: Silvano Reed DO [id number] Signed By: <Electronically signed by Silvano Reed DO> 11/11/24329 [facility] Work Phone: [phone]) 786-145706-30-2025 Evaluation note* Diagnosis Onset Date Resolution Status Admit Date Bullous emphysema acute November 112024 3:15am Chronic respiratory failure with hypoxia acute November 11, 2024 3:15am Pulmonary sarcoidosis acute Oct 3:15am Acute exacerbation of chroni c obstructive pulmonary disease (COPD) inactive November 11, 2024 3:15am Acute UTI deleted November 11 3:15am Arrhythmia deleted November 11 3:15am Breath shortness deleted October 3:15am Corticosteroid dependence deleted November 11, 2024 3:15am 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 delet ed November 11, 2024 3:15am Anemia acute November 19, 2024 11:39am Atrial fibrillation acute November 19, 2024 11:39am Chronic HFrEF (heart failure with reduced ejection fraction) acute November 19, 2024 11:39am Chronic respiratory failure with hypoxia acute November 19, 2024 11:39am Nonischemic cardiomyopathy acute November 19, 2024 11:39am Sarcoidosis of lung resolved November 19, 2024 11:39am Acute exacerbation of chroni c obstructive pulmonary disease (COPD) inactive November 19, 2024 11:39am Acute cystitis noneactive November 19, 2024 11:39am [facility] Work Phone: [phone] 878-712206-30-2025 Evaluation note* Diagnosis Onset Date Resolution Status Admit Date Bullous emphysema acute November 112024 3:15am Chronic respiratory failure with hypoxia acute November 11, 2024 3:15am Pulmonary sarcoidosis acute Oct 3:15am Acute exacerbation of chroni c obstructive pulmonary disease (COPD) inactive November 11, 2024 3:15am Acute UTI deleted November 11 3:15am Arrhythmia deleted November 11 3:15am Breath shortness deleted October 3:15am Corticosteroid dependence deleted November 11, 2024 3:15am 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 delet ed November 11, 2024 3:15am Anemia acute November 19, 2024 11:39am Atrial fibrillation acute November 19, 2024 11:39am Chronic HFrEF (heart failure with reduced ejection fraction) acute November 19, 2024 1 1:39am Chronic respiratory failure with hypoxia acute November 19, 2024 1 1:39am Nonischemic cardiomyopathy acute November 19, 2024 11:39am Sarcoidosis of lung resolved November 19, 2024 11:39am Acute exacerbation of chroni c obstructive pulmonary disease (COPD) inactive November 19, 2024 1 1:39am Acute cystitis noneactive November 19, 2024 11:39am Acute on chronic hypoxic respiratory failure acute January 05, 2025 1:53am History of sarcoidosis acute Au elva 2024 1:53am Non-ST elevation UT (NSTEMI) acute January 05, 2025 1:53am [facility] Work Phone: [phone] 201-395306-30-2025 Evaluation note* Diagnosis Onset Date Resolution Status Admit Date Bullous emphysema acute November 112024 3:15am Chronic respiratory failure with hypoxia acute November 11, 2024 3:15am Pulmonary sarcoidosis acute Oct 3:15am Acute exacerbation of chroni c obstructive pulmonary disease (COPD) inactive November 11, 2024 3:15am Acute UTI deleted November 11 3:15am Arrhythmia deleted November 11 3:15am Breath shortness deleted October 3:15am Corticosteroid dependence deleted November 11, 2024 3:15am 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 delet ed November 11, 2024 3:15am Anemia acute November 19, 2024 11:39am Atrial fibrillation acute November 19, 2024 11:39am Chronic HFrEF (heart failure with reduced ejection fraction) acute November 19, 2024 1 1:39am Chronic respiratory failure with hypoxia acute November 19, 2024 1 1:39am Nonischemic cardiomyopathy acute November 19, 2024 11:39am Sarcoidosis of lung resolved November 19, 2024 11:39am Acute exacerbation of chroni c obstructive pulmonary disease (COPD) inactive November 19, 2024 1 1:39am Acute cystitis noneactive November 19, 2024 11:39am Acute on chronic hypoxic respiratory failure acute January 05, 2025 1:53am History of sarcoidosis acute Au 2024 1:53am Non-ST elevation UT (NSTEMI) acute January 05, 2025 1:53am Takotsubo cardiomyopathy acute January 05, 2025 1:53am [facility] Work Phone: 1(549) 976-853606-30-2025 History and physical [place] [id number] Hospitalist H&P Signed Patient: Mary Mcadams MR#: [id number] : 1955 Acct:[id number] Age/Sex: 69 / M Adm Date: 5 Loc: ER Room: Type: [facility] ER Attending Dr: Copies to: Adam Del Valle,DO Silvano Pan DO~ HPI DATE OF EXAMINATION: 11/11/24 CHIEF COMPLAINT: Severe shortness of breath, tripod breathing, can only walk 5 steps. HISTORY OF PRESENT ILLNESS: This is a 77-year-old man who was brought to the emergency room here around midnight with a complaint of severe shortness of breath. The patient reports that this has been getting gradually worse over the last week. It has been veryhot and humid weather here in the end of October. He is supposed to wear oxygen athome at 2 L all the time but he admits that he really only wears it when sleeping at nighttime. In the emergency room he was described as having pursed lip breathing and being in a tripod position. He was provided with multiple rounds of nebulizer treatments, IV magnesium, and Solu-Medrol. Despite that thepatient reported he still felt very short of breath and a lot of air hunger and so he did not want to go home. He does have an extensive history. He has well-known severe COPD. 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 He is maintained on 5 mg of prednisone daily at the direction of his PCP. He also hasparoxysmal atrial fibrillation on dofetilide and anticoagulated with Xarelto. He has a history of heart failure with moderately reduced ejection fraction but he reports that he saw Dr. Montes who told him that he no longer needs to take Entresto. He also has a history of acoustic neuroma. He has a history of prostate hypertrophy and used to straight catheterize himself twice a day at home. Back in June he was hospitalized with a urinary tract infection and aFoley catheter was placed. He now reports that he has good urine and that he really only does a self-catheterization on himself once a day. He denies any acute urinary infection symptoms such as pain or burning or difficulty starting his stream or foul-smelling urine. Review of Systems Review of Systems Review of systems: 10 systems are reviewed and are negative except as mentioned elsewhere in the documentation. [facility] Medical History (Updated 11/11/24 @ 03:27 by Silvano Reed DO) Bullous emphysema 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 Benign prostatic hyperplasia with lower urinary tract symptoms Atrial fibrillation Pulmonary sarcoidosis Chronic respiratory failure with hypoxia Carotid stenosis, right CTA: 90% right ICA - 02/2024 Chronic HFrEF (heart failure with reduced ejection fraction) Nonischemic cardiomyopathy Echo: LVEF 45-50%, normal RV size/function, mild aortic root dilatation 4.0 cm - 02/2024 Hyponatremia Anemia Alcohol dependence Hypertension History of cardioversion Abdominal pain Cardiac sarcoidosis History of aspergilloma Acoustic neuroma Lumbar spondylosis Gastroesophageal reflux disease with esophagitis without hemorrhage Diverticulosis Personal history of colonic polyps Surgical History H/O colonoscopy (~10/2021) repeat 5 years History of arthroscopic knee surgery Family History Brother Heart disease Legacy FamHx Relation: Brother(s) Father Cancer Legacy FamHx Problem: Diagnosed with Cancer Mother Heart disease Myocardial infarction Diabetes Social History Smoking Status: Former smoker Substance Use Type: None Substance Abuse Comment: quit smoking in February 2024 Meds Medications and Allergies Allergies No Known Allergies Allergy (Verified 11/10/24 22:44) Home Medications finasteride 5 mg tablet 5 mg PO DAILY 09/08/23 [History Confirmed 11/10/24] latanoprost 0.005 % eye drops 1 drp ophthalmic (eye) DAILY 10/12/23 [History Confirmed 11/10/24] Oxygen 10/23/23 [History Confirmed 11/11/24] fluticasone fur. 200 mcg-umeclid 62.5 mcg-vilant 25 mcg inhalat.powder (Trelegy Ellipta) 1 inh inhalation DAILY #180 ea 10/23/23 [Rx Confirmed 11/10/24] ipratropium 0.5 mg-albuterol 3 mg (2.5 mg base)/3 mL nebulization soln 3 ml inhalation QID 30 days #360 mL 01/30/24 [Rx Confirmed 11/10/24] rivaroxaban 20 mg tablet (Xarelto) 20 mg PO DAILY.WITH.BKFAST 30 days #30 tabs 02/04/24 [Rx Confirmed 11/10/24] multivitamin with minerals 1 cap PO DAILY #90 caps 03/19/24 [Rx Confirmed 11/10/24] atorvastatin 40 mg tablet 40 mg PO QPM 30 days #30 tabs 03/20/24 [Rx Confirmed 11/10/24] potassium chloride 10 mEq tablet,extended release (Klor-Con) 10 meq PO DAILY 30 days #30 tabs 03/27/24 [Rx Confirmed 11/10/24] furosemide 20 mg tablet 20 mg PO BID 06/03/24 [History Confirmed 11/10/24] magnesium oxide 400 mg (241.3 mg magnesium) tablet 400 mg PO DAILY 06/03/24 [History Confirmed 11/10/24] metoprolol succinate 25 mg tablet,extended release 24 hr 25 mg PO DAILY 06/03/24[History Confirmed 11/10/24] acetaminophen 500 mg tablet 1,000 mg (2 x 500 mg) PO Q6HR PRN Pain Scale 1 - 3 or fever #0 tabs 07/09/24 [Rx Confirmed 11/10/24] pantoprazole 40 mg tablet,delayed release 40 mg PO DAILY.AC.BKFAST #0 tabs 07/09/24 [Rx Confirmed 11/10/24] tamsulosin 0.4 mg capsule See Rx Instructions .Route .COMPLEX #60 caps 08/11/24 [Rx Confirmed 11/10/24] dofetilide 250 mcg capsule 250 mcg PO Q12H 11/11/24 [History Confirmed 11/11/24] magnesium hydroxide 400 mg/5 mL oral suspension (Milk of Magnesia) 5 ml PO DAILYPRN constipation 11/11/24 [History Confirmed 11/11/24] menthol 4 % topical gel (Biofreeze (menthol)) 1 applic topical DAILY PRN pain 11/11/24 [History Confirmed 11/11/24] Allergy/Medication Comments: Please note that the home medication list may contain elements that are not accurate. This list of home medications will be updated during the hospital stay as more information becomes available. Exam Physical Exam Vital Signs: Temp Pulse Resp BP Pulse Ox O2 Del Method O2 Flow Rate 97.6 F 113 H 22 128/85 99 Nasal Cannula 2 11/11/24 02:37 11/11/24 02:37 11/11/24 02:37 11/11/24 02:37 11/11/24 02:42 11/11/24 02:42 11/11/24 02:42 Narrative: GEN: Seen in ER bay 16 he is lying perfectly flat on the ER cot. He does have increased work of breathing. Head: Normal Cephalic, Atraumatic. Eyes: Conjunctiva and sclera clear bilaterally. Nose: External nose and nares normal bilaterally. Mouth: Lips and tongue normal. Neck: No JVD. No thyromegaly. No lymphadenopathy. Lungs: Coarse and distant breath sounds throughout. Mild wheezing throughout all lung [place]. Heart: Distant to auscultation. Mildly tachycardic rhythm on the monitor. I think this is because of recent albuterol nebulizer treatments. To auscultationI hear no murmurs, rubs, or gallops. Abdomen: Soft, normal bowel sounds, no rigidity, guarding, or acute peritoneal signs. Extremities: No swelling or cords in the calves bilaterally, absolutely no edema in the ankles or in his legs at all, and these are equal bilaterally. Skin: No systemic rashes or lesions. Psychiatric: Calm. Conversant. Cooperative. Neuro: Awake, Alert, and Oriented x 3. No focal or lateralizing deficits. Results - Hospitalist H&P Lab Results Labs: Laboratory Last Values Corrected WBC 6.4 X10E3/uL (4.1-10.5) 11/10/24 23:30 Uncorrected WBC Count 6.4 x10E3/uL (4.1-10.5) 11/10/24 23:30 RBC 3.90 x10E6/uL (3.90-5.60) 11/10/24 23: Hgb 10.5 g/dL (13.0-17.0) L 11/10/24 23:30 Hct 31.6 % (38.8-50.0) L 11/10/24 23:30 MCV 80.8 fl (83.5-101) L 11/10/24 23:30 MCH 27.0 pg (27.5-35.2) L 11/10/24 23: MCHC 33.4 g/dL (32.5-35.6) 11/10/24 23: RDW 16.5 % (12.0-14.8) H 11/10/24 23: Plt Count 262 x10E3/uL (150-450) 11/10/24: MPV 7.9 fl (6.6-10.1) 11/10/24 23: Neut % (Auto) 66.5 % (.) 11/10/24 23: Lymph % (Auto) 18.7 % (.) 11/10/24: Dickinson % (Auto) 9.3 % (.) 11/10/24: Eos % (Auto) 5.0 % (.) 11/10/24: Baso % (Auto) 0.5 % (.) 11/10/24: Nucleat RBC Rel Count 0.1 /100 WBC (0-0.5) 11/10/24 23: Neut # (Auto) 4.3 x10E3/uL (1.8-7.7) 11/10/24: Lymph # (Auto) 1.2 x10E3/uL (1.00-4.8) 11/10/24 23:30 Dickinson # (Auto) 0.6 x10E3/uL (0.0-0.8) 11/10/24: Eos # (Auto) 0.3 x10E3/uL (0.0-0.45) 11/10/24: Baso # (Auto) 0.0 x10E3/uL (0.0-0.2) 11/10/24: Monocyte Dist Width 18.48 % (0.00-20.00) 11/10/24: PHA Creatinine Clear 77.17 11/10/24 23: Sodium 133 mmol/L (136-145) L 11/10/24: Potassium 4.1 mmol/L (3.5-5.1) 11/10/24: Chloride 98 mmol/L (98-107) 11/10/24: Carbon Dioxide 28.0 mmol/L (21.0-31.0) 11/10/24 23:30 Anion Gap 11.1 mEq/L (6.0-15.0) 11/10/24 23:30 BUN 14 mg/dL (7-25) 11/10/24 23:30 Creatinine 0.80 mg/dL (0.70-1.30) 11/10/24 23:30 Est GFR (CKD-EPI) > 60.0 mL/Min 11/10/24 23:30 Glucose 100 mg/dL (70-100) 11/10/24 23:30 Calcium 9.8 mg/dL (8.6-10.3) 11/10/24 23: Magnesium 1.6 mg/dL (1.9-2.7) L 11/10/24 23: Total Bilirubin 0.6 mg/dl (0.3-1.0) 11/10/24 23:30 AST 19 U/L (13-39) 11/10/24 23: ALT 10 U/L (7-52) 11/10/24 23:30 Alkaline Phosphatase 149 U/L (34-104) H 11/10/24 23:30 Total Creatine Kinase 27 U/L (30-223) L 11/10/24 23:30 Troponin I High Sens 4 ng/L (0-20) 11/10/24 23:30 B-Natriuretic Peptide 187.0 pg/mL (5-100) H 11/10/24 23:30 Total Protein 7.5 gm/dL (6.4-8.9) 11/10/24 23:30 Albumin 3.9 gm/dL (3.5-5.7) 11/10/24 23:30 Globulin 3.6 gm/dL 11/10/24 23:30 Albumin/Globulin Ratio 1.1 11/10/24 23:30 Urine Color Light-yellow (Yellow) 11/10/24 23:15 Urine Appearance Clear (Clear) 11/10/24 23:15 Urine pH 5.5 (5.0-9.0) 11/10/24 23:15 Ur Specific Mcintosh 1.010 (1.001-1.030) 11/10/24 23:15 Urine Protein Negative mg/dL (Negative) 11/10/24 23:15 Urine Glucose (UA) Normal mg/dL (Normal) 11/10/24 23:15 Urine Ketones Negative (Negative) 11/10/24 23:15 Urine Occult Blood Negative (Negative) 11/10/24 23:15 Urine Nitrite Positive (Negative) H 11/10/24 23:15 Urine Bilirubin Negative (Negative) 11/10/24 23:15 Urine Urobilinogen Normal mg/dL (Normal) 11/10/24 23:15 Ur Leukocyte Esterase 4+ (Negative) H 11/10/24 23:15 Urine RBC 3-4 /HPF (0-4) 11/10/24 23:15 Urine WBC Innumerable /HPF (0-4) H 11/10/24 23:15 Urine WBC Clumps Many /LPF (None Seen) H 11/10/24 23:15 Ur Squamous Epith Cells 1-2 /HPF (0-2) 11/10/24 23:15 Urine Bacteria 2+ /HPF (None Seen) H 11/10/24 23:15 Hyaline Casts 9-19 /LPF (0-8) H 11/10/24 23:15 Urine Mucus Rare /LPF 11/10/24 23:15 Assessment & Plan Assessment/Plan (1) Acute exacerbation of chronic obstructive pulmonary disease (COPD): (2) Chronic respiratory failure with hypoxia: (3) Pulmonary sarcoidosis: (4) Bullous emphysema: (5) 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: (6) Corticosteroid dependence: Plan Assessment: Acute exacerbation of chronic obstructive pulmonary disease, with well-known bullous emphysema. Acute on chronic hypoxic respiratory failure, due to the above. Chronic corticosteroid dependence. Pulmonary sarcoidosis. Additional long-term medical problems: 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. Continue anticoagulation with Xarelto. Continue antiarrhythmic withdofetilide. History of QT prolongation. Use telemetry monitoring here in the hospital. Hypertension. Continue Toprol. Hyponatremia. Check daily BMPs. Prostate hypertrophy. Used to straight cath twice a day at home. After Salinas catheter was used for UTI in June 2024 now early straight caths. History of heart failure with mildly reduced ejection fraction which most of improved I see no longer requires Entresto. Plan: Hospital admission, inpatient status. Patient is at high risk for COPD exacerbation worsening and opportunistic infections due to emphysema, COPD, and pulmonary sarcoidosis. Solu-Medrol 60 mg IV every 6 hours. DuoNeb 4 times daily with albuterol every 3 hours for breakthrough wheezing. Requesting a sputum culture. Not certain if he will be able to expectorate this. Continuous telemetry monitoring. Daily weights, ideally on a standing scale. Nebulized budesonide, twice a day. Check daily labs. Right now I do not see compelling evidence to start antibiotics for the COPD. I prefer to get a urine sample from a straight cath so he should get a straight cath UA 1 time and then decision to treat UTI based on that. He may have chronic bacterial colonization of the bladder due to his long-term use of straight catheterization over the past few years. It seems nice that he no longer really needs to rely on straight catheterization now. IP vs OBS Justification Based on differential dx, clinical care plan, and risk of adverse events, if untreated, in my clinical judgement this patient requires an acute care setting as: INPATIENT because of an expectation ofan over 2 midnight stay. Estimated length of stay (# of days): 3 Documented By: Silvano Reed DO [id number] Signed By: 11/11/24 0330 [facility]06-19-2025 History of Present illness Narrative * Shannon Gonzalez MD - 10/31/2024 11:10 AM EDT HPI Patient is in the office for follow-up for history of paroxysmal atrial fibrillation which has beensuccessfully managed and treated with dofetilide and long-term anticoagulation with Xarelto. Since he was last seen in the office he had nuclear stress test in our office which came back normal the results were shared with the patient, had echocardiogram July 2024 which revealed ejection fraction 50%. He remains with very soft blood pressure and therefore he has not been able to take vasodilator. He remains on small dose of metoprolol which we will continue. His pulmonary sarcoidosis has been stable and followed by pulmonary medicine. His lung examination today was normal. He stopped drinking alcohol which was encouraged to stay sober. Assessment/recommendations: 1- persistent atrial fibrillation, currently in sinus rhythm on dofetilide, QTc interval 510 ms, when adjusted to QRS duration it falls in normal range. Will continue present medications, patient is aware of potential drug interactions with dofetilide and he will run by me any new prescriptions to avoid QT prolongation 2-echocardiogram July 2024 revealed ejection fraction of 50%. This should not be causing any symptoms of fatigue or dyspnea. Due to hypotension he is not on vasodilators or other GDMT for LV systolic dysfunction, nuclear stress test May 2024 was normal 3-confirmed severe right internal carotid artery stenosis which is asymptomatic discovered by ultrasound February 2024. The patient was seen by vascular surgery and they recommended medical therapy. Continue antiplatelet therapy and statin, currently not a smoker. He is nondiabetic 4-pulmonary sarcoidosis currently in remission and no medical therapy with extensive scarring of his lungs based on his chest x-rays. He currently does not follow with pulmonary medicine, he is lifelong non-smoker 5-high risk medication with dofetilide and Xarelto will be monitored. Will continue to monitor renal function and CBC. There has been no active bleeding and no new cardiac arrhythmias 6-history of alcohol abuse, patient has been sober in the last several months and was encouraged not to go back to alcohol use ROS Weakness and fatigue Vitals: 10/31/24 1123 BP: 118/68 BP Location: Left arm Patient Position: Sitting Pulse: 88 Weight: 62.1 kg (137 lb) Height: 1.854 m (6' 1 ) EKG done in office today Objective Physical Exam Constitutional: Appearance: Normal appearance. [...] no known allergies. Current Medications Current Outpatient Medications Medication Instructions acetaminophen (TYLENOL) 500 mg, Every 4 hours PRN albuterol (Ventolin HFA) 90 mcg/actuation inhaler 2 puffs, Every 4 hours PRN atorvastatin (LIPITOR) 40 mg, Daily dofetilide (TIKOSYN) 250 mcg, oral, Every 12 hours finasteride (Proscar) 5 mg tablet 1 tablet, Daily fluticasone propion-salmeteroL (Advair Diskus) 500-50 mcg/dose diskus inhaler 1 puff ggeihrrlwxj-dxbfxyyzz-lesfhytc (TRELEGY-ELLIPTA) 200-62.5-25 mcg blister with device Okeobingqxd-Ehguycbbn-Exguqgfx (Trelegy Ellipta) 200-62.5-25 mcg blister with device Active 1 INH INHALATION [id number] October 22, 2023 11:00pm Rinse after use furosemide (LASIX) 20 mg, oral, Daily PRN [...] 20 mg, oral, Daily with evening meal tamsulosin (Flomax) 0.4 mg 24 hr capsule 1 capsule, 2 times daily Assessment/Plan 1. Non-ischemic cardiomyopathy (Multi) Follow Up In Cardiology Follow Up In Cardiology CBC Basic Metabolic Panel CBC Basic Metabolic Panel 2. 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 (Multi) ECG 12 Lead CBC Basic Metabolic Panel CBC Basic Metabolic Panel 3. Diastolic dysfunction 4. LV (left ventricular) mural thrombus 5. High risk medication use 6. Pulmonary sarcoidosis (Multi) 7. BMI < 18.5 8. Current smoker Scribe Attestation By signing my name below, Audra Herrera LPN , Pavel attest that this documentation has been prepared under the direction and in the presence of Shannon Gonzalez MD. Provider Attestation - Scribe documentation All medical record entries made by the Scribe were at my direction and personally dictated by me. Elizabeth reviewed the chart and agree that the record accurately reflects my personal performance of the history, physical exam, discussion and plan. [facility] Work Phone: [phone]) 562-888806-19-2025 Instructions* Patient Instructions* Audra Morales LPN - 10/31/2024 11:10 AM EDT Please bring all medicines, vitamins, and herbal supplements with you when you come to the office. Prescriptions will not be filled unless you are compliant with your follow up appointments or have a follow up appointment scheduled as per instruction of your physician. Refills should be requested at the time of your visit. BMI was below normal measurement. Current weight: 62.1 kg (137 lb) Weight change since last visit (-) denotes wt loss -4 lbs Weight gain needed to achieve BMI of 18.5 = 2.9 Lbs Provided dietary education for weight gain to the patient. Remain of valsartan Follow up documented in [facility] Work Phone: 1(783) 729-842604-21-2025 Evaluation note* Diagnosis Onset Date Resolution Status Admit Date Anemia acute September 02 2:26pm Atrial fibrillation acute September 02, 2024 2:26pm Chronic HFrEF (heart failure with reduced ejection fraction) acute September 02, 2024 2:26pm Chronic respiratory failure with hypoxia acute September 02, 2024 2:26pm Hyponatremia acute September 02, 2024 2:26pm Nonischemic cardiomyopathy acute September 02, 2024 2:26pm Sarcoidosis of lung resolved September 02, 2024 2:26pm Acute exacerbation of chroni c obstructive pulmonary disease (COPD) acute November 11, 2024 3:15am Acute UTI acute November 11 3:15am Arrhythmia acute November 11 3:15am Breath shortness acute October 3:15am Bullous emphysema acute November 112024 3:15am Chronic respiratory failure with hypoxia acute November 11, 2024 3:15am Corticosteroid dependence acute November 11, 2024 3:15am 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 acute November 11, 2024 3:15am Pulmonary sarcoidosis acute Oct 3:15am [facility] Work Phone: 1(116) 101-280404-21-2025 Evaluation note* Diagnosis Onset Date Resolution Status Admit Date Anemia acute September 02 2:26pm Atrial fibrillation acute September 02, 2024 2:26pm Chronic HFrEF (heart failure with reduced ejection fraction) acute September 02, 2024 2:26pm Chronic respiratory failure with hypoxia acute September 02, 2024 2:26pm Hyponatremia acute September 02, 2024 2:26pm Nonischemic cardiomyopathy acute September 02, 2024 2:26pm Sarcoidosis of lung resolved September 02, 2024 2:26pm Acute exacerbation of chroni c obstructive pulmonary disease (COPD) acute November 11, 2024 3:15am Acute UTI acute November 11 3:15am Bullous emphysema acute November 112024 3:15am Chronic respiratory failure with hypoxia acute November 11, 2024 3:15am Corticosteroid dependence acute November 11, 2024 3:15am Pulmonary sarcoidosis acute Oct 3:15am Arrhythmia deleted November 11 3:15am Breath shortness deleted October 3:15am 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 delet ed November 11, 2024 3:15am Acute exacerbation of chroni c obstructive pulmonary disease (COPD) acute November 19, 2024 11:39am Anemia acute November 19, 2024 11:39am Atrial fibrillation acute November 19, 2024 11:39am Chronic HFrEF (heart failure with reduced ejection fraction) acute November 19, 2024 11:39am Chronic respiratory failure with hypoxia acute November 19, 2024 11:39am Hyponatremia acute November 19 11:39am Nonischemic cardiomyopathy acute November 19, 2024 11:39am Sarcoidosis of lung resolved November 19, 2024 11:39am Acute cystitis noneactive November 19, 2024 11:39am [facility] Work Phone: 1([phone]) 464-433503-24-2025 NotePatient Education Urology Benign Prostatic Hyperplasia Benign prostatic [...] or symptoms? Symptoms of this condition include: ??? Getting up often during the night to urinate. ??? Needing to urinate frequently during the day. ??? Difficulty starting urine flow. ??? Decrease in size and strength of your urine stream. ??? Leaking (dribbling) after urinating. ??? Inability to pass urine. This needs immediate treatment. ??? Inability to completely empty your bladder. ??? Pain when you pass urine. This is more common if there is also an infection. ??? Urinary tract infection (UTI). How is this diagnosed? This condition is diagnosed based on your medical history, a physical exam, and your symptoms. Tests will also be done, such as: ??? A post-void bladder scan. This measures any amount of urine that may remain in your bladder after you finish urinating. ??? A digital rectal exam. In a rectal exam, your health care provider checks your prostate by putting a lubricated, gloved finger into your rectum to feel the back of your prostate gland. This exam detects the size of your gland and any abnormal lumps or growths. ??? An exam of your urine (urinalysis). ??? A prostate specific antigen (PSA) screening. This is a blood test used to screen for prostate cancer. ??? An ultrasound. This test uses sound waves [...] severity of your condition. Treatment may include: ??? Observation and yearly exams. This may be the only treatment needed if your condition and symptoms are mild. ??? Medicines to relieve your symptoms, including: ? Medicines to shrink the prostate. ? Medicines to relax the muscle of the prostate. ??? Surgery in severe cases. Surgery may include: ? Prostatectomy. In this procedure, the prostate tissue is removed completely through an open incision or with a laparoscope or robotics. ? Transurethral resection of the prostate (TURP). In this procedure, a tool is inserted through theopening at the tip of the penis (urethra). [...] procedure uses radio frequencies to destroy and removea small amount of prostate tissue. ? Interstitial laser coagulation (ILC). This procedure uses a laser to destroy and remove a small amount of prostate tissue. ? Transurethral electrovaporization (TUVP). This procedure uses electrodes to destroy and remove a small amount of prostate tissue. ? Prostatic urethral lift. This procedure inserts an implant to push the lobes of the prostate awayfrom the urethra. Follow these instructions at home: ??? Take isez-jld-jyifggb and prescription medicines only as told by your health care provider. ??? Monitor your symptoms for any changes. Contact your health care provider with any changes. ??? Avoid drinking large amounts of liquid before going to bed or out in public. ??? Avoid or reduce how much caffeine or alcohol you drink. ??? Give yourself time when you urinate. ??? Keep all follow-up visits. This is important. Contact a health care provider if: ??? You have unexplained back pain. ??? Your symptoms do not get (more content not included)...[facility]03-13-2025 History of Present illness Narrative* Harriet Gibson LPN - 07/25/2024 10:00 AM EDT Patient here for EKG visit ordered by Dr. Gonzalez due to a-fib and prolonged QT due to dofetilide. Dofetilide was decreased to 125mcg in hospital stay; [place] [facility] [place]. Rodriguez in suite to review EKG prior to discharge. Patient c/o SOB on exertion. Patient is currently in a SNF, and was unable to verify medications, and did not bring a list. To Dr. Gonzalez to read EKG done in office today Vitals: 07/25/24 1008 BP: 106/68 BP Location: Right leg Patient Position: Sitting Pulse: 103 Weight: 64 kg (141 lb) Height: 1.854 m (6' 1 ) documented in this [facility] Work Phone: 1(136) 883-579703-11-2025 History of Present illness Narrative* Edward Orr, - 07/23/2024 11:59 PM EDT Patient Name: Mary Mcadams Date of : 1955 Date of Service: 07/23/2024 Facility: [facility] Type of Visit: Skilled Visit Subjective Mary Mcadams is a 68 y.o. male seen today at [facility] for skilled visit. Mary is feeling a little better. He does complain of a chest cold . Has a little bit of phlegm but not much. Last week I cut back on his furosemide 20 mg to once a day but nursing wrote an order tostop it so he did not get it for a few days and then it sounds like he was gaining weight and therewas concerned that he was having heart failure symptoms. He was given a dose of 40 mg Lasix and nowis on 20 mg daily. He is feeling a little better. Shortness a breath is about the same. He is stillparticipating in therapy. His blood pressure has been stable. It has not been low like it was last week. His appetite is fair. He has a Salinas catheter in. I also stopped his tamsulosin last week because of the low blood pressure. He has an appointment coming up with the urologist. He never had a Salinas until he went to the hospital. He is hoping to get it removed. Allergies: Patient has no allergy information on record. Code Status: FULL CODE BP 114/66 Pulse 76 Temp 36.5 C (97.7 F) Resp 18 Ht 182.9 cm (6') Wt 63.1 kg (139 lb 3.2 oz) SpO2 97% BMI 18.88 kg/m Physical Exam Vitals reviewed. Exam conducted with a inspector missile present (Flex Zhong [email or web address]). Constitutional: General: He is not in acute distress. Appearance: He is ill-appearing (chronically). Comments: In room, wearing O2 HENT: Head: Normocephalic. Eyes: General: No scleral icterus. Extraocular Movements: Extraocular movements intact. Conjunctiva/sclera: Conjunctivae normal. Cardiovascular: Rate and Rhythm: Normal rate and regular rhythm. Heart sounds: Normal heart sounds. No murmur heard. Pulmonary: Effort: Pulmonary effort is normal. No respiratory distress. Breath sounds: No wheezing, rhonchi or rales. Abdominal: General: Bowel sounds are normal. Palpations: Abdomen is soft. Musculoskeletal: Cervical back: Neck supple. Right lower leg: No edema. Left lower leg: No edema. Neurological: General: No focal deficit present. Mental Status: He is alert and oriented to person, place, and time. Psychiatric: Mood and Affect: Mood normal. Behavior: Behavior normal. Thought Content: Thought content normal. Judgment: Judgment normal. Assessment/Plan Summary / Assessment / Plan 1. Chronic systolic congestive heart failure (CMS-HCC) 2. Chronic atrial fibrillation (CMS-HCC) 3. Sarcoidosis of lung (CMS-HCC) 4. Hypo-osmolality and hyponatremia 5. Benign prostatic hyperplasia with lower urinary tract symptoms, symptom details unspecified Clinically does not appear to be in heart failure right now. We will continue with a lower dose of furosemide for now. Blood pressure has been stable. I am going to restart his tamsulosin and he will follow up with the urologist. Hopefully he will get his Salinas catheter removed. Continue therapy to reach maximum improvement. ELECTRONICALLY SIGNED BY: Edward Orr DO documented in this encounterPro[facility] History of Present illness Narrative* Edward Orr DO - 07/16/2024 11:59 PM EST Patient Name: Mary Mcadams Date of : 1955 Date of Service: 07/16/2024 Facility: [facility] Type of Visit: Skilled Visit Subjective Mary Mcadams is a 68 y.o. male seen today at [facility] for therapy visit. Staff reports that the patient is feeling weak today. He participate in therapy but did not do wellto weakness. Nurses report that his blood pressure is low. His breathing is about the same. Shortness of breath isn't any worse. Appetite is fair. Pain is adequately controlled. Allergies: Patient has no allergy information on record. Code Status: FULL CODE BP (!) 64/42 Pulse 80 Temp 36.4 C (97.5 F) Resp 20 Wt 63.8 kg (140 lb 9.6 oz) SpO2 94% Physical Exam Vitals reviewed. Exam conducted with a inspector missile present (Flex Zhong [email or web address]). Constitutional: General: He is not in acute distress. Appearance: He is ill-appearing (chronically). Comments: In room, wearing O2 HENT: Head: Normocephalic. Eyes: General: Scleral icterus present. Extraocular Movements: Extraocular movements intact. Conjunctiva/sclera: Conjunctivae normal. Cardiovascular: Rate and Rhythm: Normal rate and regular rhythm. Heart sounds: Normal heart sounds. No murmur heard. Pulmonary: Effort: Pulmonary effort is normal. No respiratory distress. Breath sounds: Wheezing present. No rhonchi or rales. Abdominal: General: Bowel sounds are normal. Palpations: Abdomen is soft. Musculoskeletal: Cervical back: Neck supple. Right lower leg: No edema. Left lower leg: No edema. Neurological: General: No focal deficit present. Mental Status: He is alert and oriented to person, place, and time. Psychiatric: Mood and Affect: Mood normal. Behavior: Behavior normal. Thought Content: Thought content normal. Judgment: Judgment normal. Summary / Assessment / Plan 1. Chronic respiratory failure with hypoxia (CMS-HCC) 2. Closed wedge compression fracture of T7 vertebra with routine healing, subsequent encounter 3. Closed wedge compression fracture of T8 vertebra with routine healing, subsequent encounter 4. Sarcoid myocarditis 5. Hypotension, unspecified hypotension type 6. Benign prostatic hyperplasia with lower urinary tract symptoms, symptom details unspecified 7. Hypo-osmolality and hyponatremia 8. Hypokalemia 9. Sarcoidosis of lung (CMS-HCC) 10. Chronic systolic congestive heart failure (CMS-HCC) 11. Muscle weakness (generalized) 12. Alcohol dependence, 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CMS-HCC) He is hypotensive so I am going to stop his PM dose of furosemide but continue AM dose. I will alsostop tamsulosin as that can cause hypotension. May be able to restart it later. Check CBC, CMP and Mg+ Continue therapy, other orders as directed. ELECTRONICALLY SIGNED BY: Edward Orr DO documented in this encounterProMedica [facility]02-26-2025 History of Present illness Narrative* Edward Orr DO - 07/10/2024 11:59 PM EST Patient Name: Mary Mcadams Date of : 1955 Date of Service: 07/10/2024 Facility: [facility] Type of Visit: Admission H&P Subjective Mary Mcadams is a 68 y.o. male seen today at [facility] for No chief complaint on file. . Mary presents to [facility] where he was admitted for pain due to newly diagnosed wedge compression fractures of T7 and T8. He also has multiple medical problems including sarcoidosis of the heart and lungs, heart failure and COPD. He is oxygen dep endent. He admits to missing some of his medication prior to the hospital stay. He presents here today because he is weak and unable to go home right now and take care of himself. His pain is adequately controlled. He also has a history of gross hematuria and is on Xarelto. He was self catheterizing himself until about a month prior to hospitalization. He felt that he was urinating enough. He wasdiagnosed with a UTI at the hospital. Has a Salinas catheter in and has a follow up appointment with the urologist next month. Also has a follow up appointment with his reordering clerk next month. No past medical history on file. No past surgical history on file. No family history on file. No current outpatient medications on file. No current facility-administered medications for this visit. Allergies: Patient has no allergy information on record. Code Status: FULL CODE The following portions of the patient's history were reviewed and updated as appropriate: allergies, current medications, past family history, past medical history, past social history, past surgicalhistory, problem list, and medication reconciliation was completed including current medication andpost discharge medication. Review of Systems Objective BP 124/62 Pulse 84 Temp 36.4 C (97.6 F) Resp 18 Wt 64 kg (141 lb) SpO2 97% Physical Exam Vitals reviewed. Constitutional: General: He is not in acute distress. Appearance: He is normal weight. He is ill-appearing (chronically). Comments: Wearing O2 HENT: Head: Normocephalic. Eyes: Extraocular Movements: Extraocular movements intact. Conjunctiva/sclera: Conjunctivae normal. Cardiovascular: Rate and Rhythm: Normal rate and regular rhythm. Pulses: Normal pulses. Heart sounds: Normal heart sounds. No murmur heard. Pulmonary: Effort: Pulmonary effort is normal. No respiratory distress. Breath sounds: Wheezing present. No rhonchi or rales. Abdominal: General: Bowel sounds are normal. Palpations: Abdomen is soft. Tenderness: There is no abdominal tenderness. Genitourinary: Comments: Salinas draining yellow urine Musculoskeletal: Cervical back: Neck supple. Right lower leg: No edema. Left lower leg: No edema. Lymphadenopathy: Cervical: No cervical adenopathy. Neurological: General: No focal deficit present. Mental Status: He is alert and oriented to person, place, and time. Gait: Gait abnormal. Psychiatric: Attention and Perception: Attention normal. Mood and Affect: Mood and affect normal. Speech: Speech normal. Behavior: Behavior normal. Behavior is cooperative. Thought Content: Thought content normal. Cognition and Memory: Cognition normal. Judgment: Judgment normal. Assessment/Plan Summary / Assessment / Plan 1. Chronic respiratory failure with hypoxia ([facility]) 2. Closed wedge compression fracture of T8 vertebra with routine healing, subsequent encounter 3. Closed wedge compression fracture of T7 vertebra with routine healing, subsequent encounter 4. Sarcoidosis of lung ([facility]) 5. Chronic systolic congestive heart failure ([facility] [place] 6. Sarcoid myocarditis 7. Gross hematuria 8. Hypo-osmolality and hyponatremia 9. Hypokalemia 10. Alcohol dependence, 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[facility] [place] 11. Benign prostatic hyperplasia with lower urinary tract symptoms, symptom details unspecified 12. Other spondylosis, lumbar region 13. Muscle weakness (generalized) 14. Encephalopathy, unspecified type 15. Occlusion and stenosis of right carotid artery 16. Gastroesophageal reflux disease without esophagitis 17. Chronic atrial fibrillation ([facility]) Admit to [facility] for therapies. Continue medications as before Full code Continue salinas catheter Good rehab potentia ELECTRONICALLY SIGNED BY: Edward Orr DO documented in this encounterVermont Psychiatric Care HospitalTILE Financial [facility] [id number] Discharge summary Author Altaf Jones [facility] Note Date/Time July 09, 2024 1:09pm [facility] [address] [place] [address] Discharge Summary Signed Patient: Mary Mcadams MR#: [id number] : 1955 Acct:[id number] Age/Sex: 68 / M Adm Date: 5 Loc: Room: [address] [place] [address]: Altaf Jones MD Copies to: MD Adam Carballo DO~ Providers Date of Discharge: 07/09/24 Discharging Provider: Altaf Jones Primary Care Provider: Adam Del Valle Consults: 07/03/24 23:14 Consult to Occupational Therapy Routine Comment: Physician Instructions: Consult to OT for:: Evaluation and Treat Consult to Physical Therapy Routine Comment: Physician Instructions: Consult to PT for:: Evaluation and Treat 07/04/24 13:20 Consult to Cardiology Routine Comment: Consulting Provider: Shannon Gonzalez Reason For Exam: lateral T wave inversions with prolonged QTc Has Provider Been Notified: Yes Date of Notification: 07/04/24 Time of Notification: 13:43 Extended Comment: On dofetilide, QTc prolonged despite magnesium repletion 07/04/24 15:40 Consult to Dietitian Routine Comment: Reason for Consult: PO Supplement Eval&Order Discharge Diagnosis Final Diagnosis Final Discharge Diagnosis: Acute urinary retention Acute cystitis with group B strep in the setting of urine retention Metabolic encephalopathy due to the above Prolonged QTc due to dofetilide Chronic problems Pulmonary sarcoidosis and chronic hypoxic respiratory failure on oxygen 3 L 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 He presented to the ED on July 03 with complaints of weakness of fall, initial evaluation revealed mild encephalopathy, possibly due to urine retention versus infection. He was admitted to the hospital. A Salinas catheter was inserted with difficulty, revealing 700 cc urine in the bladder. He was administered IV antibiotics empirically. Urine cultures grew strep group B. Unfortunately blood cultures were not obtained on presentation. There were no hospital course complications. His mental status improved. He was seen by cardiology during the hospital stay for prolonged QTc on dofetilide,the dose of which was reduced. A voiding trial was unsuccessful, and the Salinas catheter was reinserted. Patient was discharged to SNF in stable condition on July 09. He will be followed by urology in the outpatient setting. No further antimicrobial therapywas prescribed at discharge, he received 6 days of treatment IV in the hospital. Time Spent with Patient Time spent providing/coordinating discharge services (# min): 45 Discharge Plan Discharge Plan Patient Disposition: Assisted Facility Activity: No Activity Restriction Diet: Regular Additional Instructions: SNF to manage: -PT/OT to eval and treat -Monitor VS per protocol -Fall precautions -Perform genitourinary assessments -Monitor for increased signs of infection -Maintain and perform routine care to salinas catheter-- placed on 07/08/24 forurinary retention *Ensure patient has a follow-up appointment with urologist -Dietitian recommendations: *Ensure plus, 1 container, daily with meal -Weighted utensils -Care to be managed by SNF providers. Prescriptions: New dofetilide 125 mcg Capsule 125 mcg PO BID Qty: 0 0RF acetaminophen 500 mg Tablet 1,000 mg PO Q6HR PRN (Reason: Pain Scale 1 - 3 or fever) Qty: 0 0RF pantoprazole 40 mg Tablet,Delayed Release (Dr/Ec) 40 mg PO DAILY.AC.BKFAST Qty: 0 0RF Continued ipratropium-albuterol 0.5 mg-3 mg(2.5 mg base)/3 mL solution for nebulization 3 ml inhalation QID 30 Days Qty: 360 11RF tamsulosin 0.4 mg capsule 0.4 mg PO BID 30 Days Qty: 60 2RF potassium chloride [Klor-Con 10] 10 mEq tablet extended release 10 meq PO DAILY 30 Days Qty: 30 5RF Xarelto 20 mg Tablet 20 mg PO DAILY.WITH.BKFAST 30 Days Qty: 30 0RF Rx Instructions: Further refills per Cardiology with Dr. Gonzalez. sacubitril-valsartan [Entresto] 24-26 mg Tablet 1 tab PO BID multivitamin with minerals Capsule 1 cap PO DAILY Qty: 90 3RF atorvastatin 40 mg Tablet 40 mg PO QPM 30 Days Qty: 30 12RF finasteride 5 mg tablet 5 mg PO DAILY latanoprost 0.005 % drops 1 drp ophthalmic (eye) DAILY (DME) Oxygen Unit See Rx Instructions .Route Rx Instructions: 2 liters at HS and napping [facility] Ellipta 200-62.5-25 mcg blister with device 1 inh inhalation DAILY Qty: 180 4RF Rx Instructions: Rinse after use metoprolol succinate 25 mg tablet extended release 24 hr 25 mg PO DAILY furosemide 20 mg tablet 20 mg PO BID magnesium oxide 400 mg (241.3 mg magnesium) tablet 400 mg PO DAILY Discontinued albuterol sulfate 90 mcg/actuation HFA aerosol inhaler See Rx Instructions .ROUTE .COMPLEX Qty: 18 11RF Dose Instruction: INHALE 2 PUFFS BY MOUTH EVERY 6 HOURS NEEDED Rx Instructions: INHALE 2 PUFFS BY MOUTH EVERY 6 HOURS NEEDED pantoprazole 40 mg tablet,delayed release (DR/EC) See Rx Instructions .ROUTE .COMPLEX Qty: 90 3RF Dose Instruction: TAKE 1 TABLET BY MOUTH ONCE DAILY ON AN EMPTY STOMACH 30 MINUTES prior to BREAKFAST Rx Instructions: TAKE 1 TABLET BY MOUTH ONCE DAILY ON AN EMPTY STOMACH 30 MINUTES prior to BREAKFAST valsartan 40 mg tablet 20 mg PO DAILY 30 Days Qty: 15 2RF dofetilide 250 mcg Capsule 250 mcg PO BID 30 Days Qty: 60 12RF albuterol sulfate 2.5 mg /3 mL (0.083 %) solution for nebulization 2.5 mg inhalation QID fluticasone propionate 50 mcg/actuation spray,suspension 1 spray intranasal DAILY Follow Up: [facility] [place] [Outside] - 08/05/24 1:15 pm (Previously scheduled appointment with Dr. Norman. ) Shannon Gonzalez MD [Active Staff] - 09/13/24 2:10 pm (Have an EKG done in my office on 07/18/24 at 2pm) Adam Del Valle DO [Primary Care Provider] - (Please arrange a follow-up appointment once discharged from SNF. ) Continuity of Care Document Health Concerns: A [facility] screening has identified you as FRAIL or AT RISK FOR FRAILTY. This puts you at a higher risk for infection, illness, falls,and other injuries. Here are four ways to help you reduce your risk of frailty: 1. IDENTIFY EARLY SIGNS OF FRAILTY ? Discuss contributing factors and concerns with your doctor 2. BE ACTIVE ? Walking and light strengthening exercises will help reduce weakness 3. EAT WELL ? Aim for three healthy meals a day that are high in protein 4. THINK POSITIVE ? Keep your mind active by being sociable and continuing to learn References: Stay Strong: Four Ways to Beat the Frailty Risk https://www.[facility].org/health/vbyzicuq-jpc-fksxgqdfuw/bros-nolwnn-uucy- gtmn-pa-chem-uue-iiwchrj-fqoj Exam Physical Exam Vital Signs: Temp Pulse Resp BP Pulse Ox O2 Del Method O2 Flow Rate 98.1 F 91 20 143/83 H 96 Room Air 2 07/09/24 08:01 07/09/24 12:05 07/09/24 12:05 07/09/24 08:01 07/09/24 08:01 07/09/24 08:01 07/07/24 17:38 Diagnostic Studies Completed and Pending Studies Pending studies at discharge: 07/10/24 05:00 BMP [Basic Metabolic Panel] [CHEM] IN AM 07/11/24 05:00 BMP [Basic Metabolic Panel] [CHEM] IN AM Labs on day of discharge: 07/09/24 06:18: PHA Creatinine Clear 81.23, Sodium 133 L, Potassium 4.1, Chloride 99, Carbon Dioxide 24.2, Anion Gap 13.9, BUN 16, Creatinine 0.78, Est GFR (CKD-EPI) > 60.0, Glucose 86, Calcium 9.0 Documented By: Altaf Jones MD 07/09/24 1301 Signed By: <Electronically signed by Altaf Jones MD> 07/09/24 1309 [facility] Work Phone: [phone] [place] [address] Discharge Summary Signed Patient: Mary Mcadams MR#: [id number] : 1955 Acct:[id number] Age/Sex: 68 / M Adm Date: 5 Loc: Room: [address] [place] [address]: Altaf Jones MD Copies to: MD Adam Carballo DO~ Providers Date of Discharge: 07/09/24 Discharging Provider: Altaf Jones Primary Care Provider: Adam Del Valle Consults: 07/03/24 23:14 Consult to Occupational Therapy Routine Comment: Physician Instructions: Consult to OT for:: Evaluation and Treat Consult to Physical Therapy Routine Comment: Physician Instructions: Consult to PT for:: Evaluation and Treat 07/04/24 13:20 Consult to Cardiology Routine Comment: Consulting Provider: Shannon Gonzalez Reason For Exam: lateral T wave inversions with prolonged QTc Has Provider Been Notified: Yes Date of Notification: 07/04/24 Time of Notification: 13:43 Extended Comment: On dofetilide, QTc prolonged despite magnesium repletion 07/04/24 15:40 Consult to Dietitian Routine Comment: Reason for Consult: PO Supplement Eval&Order Discharge Diagnosis Final Diagnosis Final Discharge Diagnosis: Acute urinary retention Acute cystitis with group B strep in the setting of urine retention Metabolic encephalopathy due to the above Prolonged QTc due to dofetilide Chronic problems Pulmonary sarcoidosis and chronic hypoxic respiratory failure on oxygen 3 L 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 He presented to the ED on July 03 with complaints of weakness of fall, initial evaluation revealed mild encephalopathy, possibly due to urine retention versus infection. He was admitted to the hospital. A Salinas catheter was inserted with difficulty, revealing 700 cc urine in the bladder. He was administered IV antibiotics empirically. Urine cultures grew strep group B. Unfortunately blood cultures were not obtained on presentation. There were no hospital course complications. His mental status improved. He was seen by cardiology during the hospital stay for prolonged QTc on dofetilide,the dose of which was reduced. A voiding trial was unsuccessful, and the Salinas catheter was reinserted. Patient was discharged to SNF in stable condition on July 09. He will be followed by urology in the outpatient setting. Nofurther antimicrobial therapywas prescribed at discharge, he received 6 days of treatment IV in thehospital. Time Spent with Patient Time spent providing/coordinating discharge services (# min): 45 Discharge Plan Discharge Plan Patient Disposition: Assisted Facility Activity: No Activity Restriction Diet: Regular Additional Instructions: SNF to manage: -PT/OT to eval and treat -Monitor VS per protocol -Fall precautions -Perform genitourinary assessments -Monitor for increased signs of infection -Maintain and perform routine care to salinas catheter-- placed on 07/08/24 forurinary retention *Ensure patient has a follow-up appointment with urologist -Dietitian recommendations: *Ensure plus, 1 container, daily with meal -Weighted utensils -Care to be managed by SNF providers. Prescriptions: New dofetilide 125 mcg Capsule 125 mcg PO BID Qty: 0 0RF acetaminophen 500 mg Tablet 1,000 mg PO Q6HR PRN (Reason: Pain Scale 1 - 3 or fever) Qty: 0 0RF pantoprazole 40 mg Tablet,Delayed Release (Dr/Ec) 40 mg PO DAILY.AC.BKFAST Qty: 0 0RF Continued ipratropium-albuterol 0.5 mg-3 mg(2.5 mg base)/3 mL solution for nebulization 3 ml inhalation QID 30 Days Qty: 360 11RF tamsulosin 0.4 mg capsule 0.4 mg PO BID 30 Days Qty: 60 2RF potassium chloride [Klor-Con 10] 10 mEq tablet extended release 10 meq PO DAILY 30 Days Qty: 30 5RF Xarelto 20 mg Tablet 20 mg PO DAILY.WITH.BKFAST 30 Days Qty: 30 0RF Rx Instructions: Further refills per Cardiology with Dr. Gonzalez. sacubitril-valsartan [Entresto] 24-26 mg Tablet 1 tab PO BID multivitamin with minerals Capsule 1 cap PO DAILY Qty: 90 3RF atorvastatin 40 mg Tablet 40 mg PO QPM 30 Days Qty: 30 12RF finasteride 5 mg tablet 5 mg PO DAILY latanoprost 0.005 % drops 1 drp ophthalmic (eye) DAILY (DME) Oxygen Unit See Rx Instructions .Route Rx Instructions: 2 liters at HS and napping [facility] Ellipta 200-62.5-25 mcg blister with device 1 inh inhalation DAILY Qty: 180 4RF Rx Instructions: Rinse after use metoprolol succinate 25 mg tablet extended release 24 hr 25 mg PO DAILY furosemide 20 mg tablet 20 mg PO BID magnesium oxide 400 mg (241.3 mg magnesium) tablet 400 mg PO DAILY Discontinued albuterol sulfate 90 mcg/actuation HFA aerosol inhaler See Rx Instructions .ROUTE .COMPLEX Qty: 18 11RF Dose Instruction: INHALE 2 PUFFS BY MOUTH EVERY 6 HOURS NEEDED Rx Instructions: INHALE 2 PUFFS BY MOUTH EVERY 6 HOURS NEEDED pantoprazole 40 mg tablet,delayed release (DR/EC) See Rx Instructions .ROUTE .COMPLEX Qty: 90 3RF Dose Instruction: TAKE 1 TABLET BY MOUTH ONCE DAILY ON AN EMPTY STOMACH 30 MINUTES prior to BREAKFAST Rx Instructions: TAKE 1 TABLET BY MOUTH ONCE DAILY ON AN EMPTY STOMACH 30 MINUTES prior to BREAKFAST valsartan 40 mg tablet 20 mg PO DAILY 30 Days Qty: 15 2RF dofetilide 250 mcg Capsule 250 mcg PO BID 30 Days Qty: 60 12RF albuterol sulfate 2.5 mg /3 mL (0.083 %) solution for nebulization 2.5 mg inhalation QID fluticasone propionate 50 mcg/actuation spray,suspension 1 spray intranasal DAILY Follow Up: [facility] [place] [Outside] - 08/05/24 1:15 pm (Previously scheduled appointment with Dr. Norman. ) Shannon Gonzalez MD [Active Staff] - 09/13/24 2:10 pm (Have an EKG done in my office on 07/18/24 at 2pm) Adam Del Valle DO [Primary Care Provider] - (Please arrange a follow-up appointment once dischargedfrom SNF. ) Continuity of Care Document Health Concerns: A [facility] screening has identified you as FRAIL or AT RISK FOR FRAILTY. This puts you at a higher risk for infection, illness, falls,and other injuries. Here are four ways to help you reduce your risk of frailty: 1. IDENTIFY EARLY SIGNS OF FRAILTY ? Discuss contributing factors and concerns with your doctor 2. BE ACTIVE ? Walking and light strengthening exercises will help reduce weakness 3. EAT WELL ? Aim for three healthy meals a day that are high in protein 4. THINKPOSITIVE ? Keep your mind active by being sociable and continuing to learn References: Stay Strong:Four Ways to Beat the Frailty Risk https://www.[facility].org/health/hqttitlm-eac-ejyuhqqmny/st fb-hqeysz-esom- rwgt-br-ptuw-ist-aetduky-uyyh Exam Physical Exam Vital Signs: Temp Pulse Resp BP Pulse Ox O2 Del Method O2 Flow Rate 98.1 F 91 20 143/83 H 96 Room Air 2 07/09/24 08:01 07/09/24 12:05 07/09/24 12:05 07/09/24 08:01 07/09/24 08:01 07/09/24 08:01 07/07/24 17:38 Diagnostic Studies Completed and Pending Studies Pending studies at discharge: 07/10/24 05:00 BMP [Basic Metabolic Panel] [CHEM] IN AM 07/11/24 05:00 BMP [Basic Metabolic Panel] [CHEM] IN AM Labs on day of discharge: 07/09/24 06:18: PHA Creatinine Clear 81.23, Sodium 133 L, Potassium 4.1, Chloride 99, Carbon Dioxide 24.2, Anion Gap 13.9, BUN 16, Creatinine 0.78, Est GFR (CKD-EPI) > 60.0, Glucose 86, Calcium 9.0 Documented By: Altaf Jones MD 07/09/24 1301 Signed By: 07/09/24 1309 [facility]02-24-2025 Progress note Author Ambrose Hsieh [facility] Note Date/Time July 08, 2024 5:36pm [facility] [address] [place] [address] Hospitalist Progress Note Signed Patient: Mary Mcadams MR#: [id number] : 1955 Acct:[id number] Age/Sex: 68 / M Adm Date: 5 Loc: 3T Room: [address] [place] [address] Type: ADM IN Attending Dr: Ambrose Hsieh MD Copies to: ~ Date of Service: 07/08/2024 Subjective Subjective Narrative: Continues to feel well, failed void trial yesterday Salinas catheter replaced, hashad some blood-tinged this a.m. which is improved likely secondary to trauma from Salinas catheter reinsertion. QTc 432 this morning, patient understands awaiting precertification for SNF. Exam Physical Exam Vital Signs: Temp Pulse Resp BP Pulse Ox O2 Del Method O2 Flow Rate 98.9 F 79 20 152/86 H 97 Room Air 2 07/08/24 08:28 07/08/24 09:20 07/08/24 09:20 07/08/24 08:28 07/08/24 08:28 07/08/24 08:28 07/07/24 17:38 Narrative: General: cooperative and comfortable Orientation: alert, awake and oriented x3 Head: normal to inspection Neck: normal visual inspection Cardio: no JVD, regular rate, regular rhythm Chest palpation & inspection: normal inspection of the chest Resp Effort & Inspection: normal respiratory effort Abd: soft, non-tender, non-distended, salinas catheter in place, clear urine with trace sediment in tubing. Extremities: Warm well perfused, no edema Objective Lab Results 07/06/24 06:42 07/08/24 05:33 Meds Allergies and Active Meds Allergies No Known Allergies Allergy (Verified 07/03/24 18:33) Active Meds: Active Medications Generic Name Dose Route Start Last Admin Trade Name Freq PRN Reason Stop Dose Admin Acetaminophen 1,000 mg 07/03/24 23:14 07/05/24 01:19 Acetaminophen 500 Mg Tablet PO 07/03/25 23:13 1,000 mg Q6HR PRN Administration Pain Scale 1 - 3 or fever Albuterol 2 puff 07/04/24 00:00 Albuterol Hfa 60 Puff/8 Gram Inhaler INHALATION 07/04/25 00:00 Q6HR PRN PRN SHORTNESS OF BREATH Albuterol/Ipratropium 3 ml 07/04/24 08:00 07/08/24 08:57 Ipratropium/Albuterol 0.5-3 Mg 3 Ml Ampul.Neb INHALATION 07/04/25 07:59 3 ml QID.RESP ALEX Administration Atorvastatin Calcium 40 mg 07/04/24 21:00 07/07/24 20:19 Atorvastatin 40 Mg Tablet PO 07/04/25 20:59 40 mg QPM ALEX Administration Budesonide/Formoterol Fumarate 2 puff 07/04/24 09:00 07/08/24 08:57 Budesonide/Formoterol 160-4.5 Mcg 60 Puff/6 Gm Hfa.Aer.Ad INHALATION 07/04/25 08:59 2 puff BID ALEX Administration Dofetilide 125 mcg 07/06/24 11:00 07/08/24 08:30 Dofetilide 125 Mcg Capsule PO 07/06/25 10:59 125 mcg BID ALEX Administration Finasteride 5 mg 07/04/24 09:00 07/08/24 08:32 Finasteride 5 Mg Tablet PO 07/04/25 08:59 5 mg DAILY ALEX Administration Fluticasone Propionate 1 spray 07/04/24 09:00 07/08/24 08:33 Fluticasone Propionate [place] 120 [place]/16 Gm Bottle INTRANASAL 07/04/25 08:59 1 spray DAILY ALEX Administration Ceftriaxone Sodium 1 gm in 50 mls @ 100 mls/hr 07/04/24 23:00 07/07/24 23:42 Rocephin IV 07/08/24 23:29 100 mls/hr Q24H ALEX Administration Latanoprost 1 drops 07/04/24 22:00 07/07/24 21:32 Latanoprost 0.005% Op Soln 50 Drops/2.5 Ml Bottle EYE-BOTH 07/04/25 21:59 Not Given HS ALEX Magnesium Oxide 400 mg 07/04/24 09:00 07/08/24 08:30 Magnesium Oxide 400 Mg Tablet PO 07/04/25 08:59 400 mg DAILY ALEX Administration Melatonin 5 mg 07/03/24 23:14 Melatonin 5 Mg Tablet PO 07/03/25 23:13 QHS PRN Insomnia Metoprolol Succinate 25 mg 07/04/24 09:00 07/08/24 08:30 Metoprolol Succinate 25 Mg Tab.Er.24h PO 07/04/25 08:59 25 mg DAILY ALEX Administration Ondansetron HCl 4 mg 07/03/24 23:14 07/04/24 19:48 Ondansetron Odt 4 Mg Tab.Rapdis PO 07/03/25 23:13 4 mg Q6HR PRN Administration Nausea And Vomiting Oxycodone HCl 5 mg 07/03/24 23:14 Oxycodone Ir 5 Mg Tablet PO Q6HR PRN Pain Scale 4 - 7 Pantoprazole Sodium 40 mg 07/04/24 07:30 07/08/24 08:30 Pantoprazole 40 Mg Tablet.Dr PO 07/04/25 07:29 40 mg DAILY.AC.BKFAST ALEX Administration Potassium Chloride 10 meq 07/04/24 09:00 07/08/24 08:30 Potassium Chloride Er 10 Meq Tablet.Er PO 07/04/25 08:59 10 meq DAILY ALEX Administration Rivaroxaban 20 mg 07/04/24 08:00 07/08/24 08:30 Rivaroxaban 20 Mg Tablet PO 07/04/25 07:59 20 mg DAILY.WITH.BKFAST ALEX Administration Sodium Chloride 0 ml 07/03/24 18:33 07/03/24 20:46 Sodium Chloride 0.9 % 10 Ml Syringe IV-PUSH 07/03/25 18:32 10 ml PRN PRN Administration Flush Sodium Chloride 0 ml 07/04/24 06:00 07/08/24 06:29 Sodium Chloride 0.9 % 10 Ml Syringe IV-PUSH 07/04/25 05:59 Not Given QSHIFT ALEX Tamsulosin HCl 0.4 mg 07/04/24 09:00 07/08/24 08:30 Tamsulosin 0.4 Mg Cap.Er.24h PO 07/04/25 08:59 0.4 mg BID ALEX Administration A&P - Hospitalist Assessment/Plan (1) Weakness: (2) Fall: (3) Compression fracture of body of thoracic vertebra: (4) Altered mental status: (5) UTI (urinary tract infection): Plan Weakness/Debility Fall- mechanical fall from ground height Compression fracture to T7 - Fall precautions - Up with assist - Reports decreased appetite and fluid intake lately and diarrhea - tolerating PO, had bowel movement this am. Altered mental status- could be due to urine retention- has not self cathed for about a month, ran out of supplies and felt he was not retaining urine UTI - Currently alert and oriented -Prelim urine cultures resulted group B strep greater than 100,000 colony- forming units - Ceftriaxone, 5 day course. - failed void trial will continue salinas catheter and follow up with urology as outpatient A-fib - on dofetilide daily held at present with prolonged QTc at 567 - QTc 432 this am, resumed tikosyn at 125 mcg bid on 07/06/24 as recommended by cardiology - stable for discharge to SNF ([facility]) once pre-cert approved Hematoma/infectious process to left gluteal soft tissues- measures 2.5cm - suspected hematoma given fall, no hgb drop ok to continue anticoagulation Chronic conditions A-fib- continue rivaroxaban BPH- finasteride, tamsulosin Sarcoidosis, chronic hypoxic respiratory failure on home oxygen- continue oxygen, nebulizers, inhalers DVT PPx?rivaroxaban for afib as above Diet order?regular CODE STATUS?full code Disposition - PT/OT recommending SNF, patient and family agreeable. Documented By: Ambrose Hsieh MD 07/08/24 1040 Signed By: <Electronically signed by Ambrose Hsieh MD> 07/08/24 1736 [facility] Work Phone: 1(219) 350-186002-24-20[place] [address] Hospitalist Progress Note Signed Patient: Mary Mcadams MR#: [id number] : 1955 Acct:[id number] Age/Sex: 68 / M Adm Date: 5 Loc: 3T Room: [address] [place] [address] Type: ADM IN Attending Dr: Ambrose Hsieh MD Copies to: ~ Date of Service: 07/08/2024 Subjective Subjective Narrative: Continues to feel well, failed void trial yesterday Salinas catheter replaced, hashad some blood-tinged this a.m. which is improved likely secondary to trauma from Salinas catheter reinsertion. QTc 432 this morning, patient understands awaiting precertification for SNF. Exam Physical Exam Vital Signs: Temp Pulse Resp BP Pulse Ox O2 Del Method O2 Flow Rate 98.9 F 79 20 152/86 H 97 Room Air 2 07/08/24 08:28 07/08/24 09:20 07/08/24 09:20 07/08/24 08:28 07/08/24 08:28 07/08/24 08:28 07/07/24 17:38 Narrative: General: cooperative and comfortable Orientation: alert, awake and oriented x3 Head: normal to inspection Neck: normal visual inspection Cardio: no JVD, regular rate, regular rhythm Chest palpation & inspection: normal inspection of the chest Resp Effort & Inspection: normal respiratory effort Abd: soft, non-tender, non-distended, salinas catheter in place, clear urine with trace sediment in tubing. Extremities: Warm well perfused, no edema Objective Lab Results 07/06/24 06:42 07/08/24 05:33 Meds Allergies and Active Meds Allergies No Known Allergies Allergy (Verified 07/03/24 18:33) Active Meds: Active Medications Generic Name Dose Route Start Last Admin Trade Name Freq PRN Reason Stop Dose Admin Acetaminophen 1,000 mg 07/03/24 23:14 07/05/24 01:19 Acetaminophen 500 Mg Tablet PO 07/03/25 23:13 1,000 mg Q6HR PRN Administration Pain Scale 1 - 3 or fever Albuterol 2 puff 07/04/24 00:00 Albuterol Hfa 60 Puff/8 Gram Inhaler INHALATION 07/04/25 00:00 Q6HR PRN PRN SHORTNESS OF BREATH Albuterol/Ipratropium 3 ml 07/04/24 08:00 07/08/24 08:57 Ipratropium/Albuterol 0.5-3 Mg 3 Ml Ampul.Neb INHALATION 07/04/25 07:59 3 ml QID.RESP ALEX Administration Atorvastatin Calcium 40 mg 07/04/24 21:00 07/07/24 20:19 Atorvastatin 40 Mg Tablet PO 07/04/25 20:59 40 mg QPM ALEX Administration Budesonide/Formoterol Fumarate 2 puff 07/04/24 09:00 07/08/24 08:57 Budesonide/Formoterol 160-4.5 Mcg 60 Puff/6 Gm Hfa.Aer.Ad INHALATION 07/04/25 08:59 2 puff BID ALEX Administration Dofetilide 125 mcg 07/06/24 11:00 07/08/24 08:30 Dofetilide 125 Mcg Capsule PO 07/06/25 10:59 125 mcg BID ALEX Administration Finasteride 5 mg 07/04/24 09:00 07/08/24 08:32 Finasteride 5 Mg Tablet PO 07/04/25 08:59 5 mg DAILY ALEX Administration Fluticasone Propionate 1 spray 07/04/24 09:00 07/08/24 08:33 Fluticasone Propionate Fairbank 120 Fairbank/16 Gm Bottle INTRANASAL 07/04/25 08:59 1 spray DAILY ALEX Administration Ceftriaxone Sodium 1 gm in 50 mls @ 100 mls/hr 07/04/24 23:00 07/07/24 23:42 Rocephin IV 07/08/24 23:29 100 mls/hr Q24H ALEX Administration Latanoprost 1 drops 07/04/24 22:00 07/07/24 21:32 Latanoprost 0.005% Op Soln 50 Drops/2.5 Ml Bottle EYE-BOTH 07/04/25 21:59 Not Given HS ALEX Magnesium Oxide 400 mg 07/04/24 09:00 07/08/24 08:30 Magnesium Oxide 400 Mg Tablet PO 07/04/25 08:59 400 mg DAILY ALEX Administration Melatonin 5 mg 07/03/24 23:14 Melatonin 5 Mg Tablet PO 07/03/25 23:13 QHS PRN Insomnia Metoprolol Succinate 25 mg 07/04/24 09:00 07/08/24 08:30 Metoprolol Succinate 25 Mg Tab.Er.24h PO 07/04/25 08:59 25 mg DAILY ALEX Administration Ondansetron HCl 4 mg 07/03/24 23:14 07/04/24 19:48 Ondansetron Odt 4 Mg Tab.Rapdis PO 07/03/25 23:13 4 mg Q6HR PRN Administration Nausea And Vomiting Oxycodone HCl 5 mg 07/03/24 23:14 Oxycodone Ir 5 Mg Tablet PO Q6HR PRN Pain Scale 4 - 7 Pantoprazole Sodium 40 mg 07/04/24 07:30 07/08/24 08:30 Pantoprazole 40 Mg Tablet. PO 07/04/25 07:29 40 mg DAILY.AC.BKFAST ALEX Administration Potassium Chloride 10 meq 07/04/24 09:00 07/08/24 08:30 Potassium Chloride Er 10 Meq Tablet.Er PO 07/04/25 08:59 10 meq DAILY ALEX Administration Rivaroxaban 20 mg 07/04/24 08:00 07/08/24 08:30 Rivaroxaban 20 Mg Tablet PO 07/04/25 07:59 20 mg DAILY.WITH.BKFAST ALEX Administration Sodium Chloride 0 ml 07/03/24 18:33 07/03/24 20:46 Sodium Chloride 0.9 % 10 Ml Syringe IV-PUSH 07/03/25 18:32 10 ml PRN PRN Administration Flush Sodium Chloride 0 ml 07/04/24 06:00 07/08/24 06:29 Sodium Chloride 0.9 % 10 Ml Syringe IV-PUSH 07/04/25 05:59 Not Given QSHIFT ALEX Tamsulosin HCl 0.4 mg 07/04/24 09:00 07/08/24 08:30 Tamsulosin 0.4 Mg Cap.Er.24h PO 07/04/25 08:59 0.4 mg BID ALEX Administration A&P - Hospitalist Assessment/Plan (1) Weakness: (2) Fall: (3) Compression fracture of body of thoracic vertebra: (4) Altered mental status: (5) UTI (urinary tract infection): Plan Weakness/Debility Fall- mechanical fall from ground height Compression fracture to T7 - Fall precautions - Up with assist - Reports decreased appetite and fluid intake lately and diarrhea - tolerating PO, had bowel movement this am. Altered mental status- could be due to urine retention- has not self cathed for about a month, ran out of supplies and felt he was not retaining urine UTI - Currently alert and oriented -Prelim urine cultures resulted group B strep greater than 100,000 colony- forming units - Ceftriaxone, 5 day course. - failed void trial will continue salinas catheter and follow up with urology as outpatient A-fib - on dofetilide daily held at present with prolonged QTc at 567 - QTc 432 this am, resumed tikosyn at 125 mcg bid on 07/06/24 as recommended by cardiology - stable for discharge to SNF ([facility]) once pre-cert approved Hematoma/infectious process to left gluteal soft tissues- measures 2.5cm - suspected hematoma given fall, no hgb drop ok to continue anticoagulation Chronic conditions A-fib- continue rivaroxaban BPH- finasteride, tamsulosin Sarcoidosis, chronic hypoxic respiratory failure on home oxygen- continue oxygen, nebulizers, inhalers DVT PPx?rivaroxaban for afib as above Diet order?regular CODE STATUS?full code Disposition - PT/OT recommending SNF, patient and family agreeable. Documented By: Ambrose Hsieh MD 07/08/24 1040 Signed By: 07/08/24 1736 [facility]02-24-2025 Progress note Author Shannon Gonzalez [facility] Note Date/Time July 08, 2024 12:45pm [facility] [address] [place] [address] Cardiology Progress Note Signed with Addenda Patient: Mary Mcadams MR#: [id number] : 1955 Acct:[id number] Age/Sex: 68 / M Adm Date: 5 Loc: Room: [address] [place] [address] Type: ADM IN Attending Dr: Ambrose Hsieh MD Copies to: ~ ADDENDUM1 We do not need to continue to monitor the patient anymore on telemetry Addendum Documented By: MD POOL Gonzalez 07/08/24 1245 Addendum Signed By: <Electronically signed by MD POOL Gonzalez> 07/08/24 1245 Date of Service: 07/08/2024 Subjective Principal diagnosis: Prolonged QT interval Interval history: Overall stable. QTc today 432 ms. Patient can be discharged home today on current dose of Tikosyn, will obtain ECG in the office in 1 week, other medication will be left unchanged Exam Physical Exam Vital Signs: Temp Pulse Resp BP Pulse Ox O2 Del Method O2 Flow Rate 98.7 F 80 18 118/68 96 Room Air 2 07/08/24 11:54 07/08/24 12:29 07/08/24 12:29 07/08/24 11:54 07/08/24 11:54 07/08/24 11:54 07/07/24 17:38 Const General: cooperative, comfortable and no acute [...] no clubbing, cyanosis or edema Objective Labs 07/06/24 06:42 07/08/24 05:33 Labs: Laboratory Results - last 24 hr 07/08/24 05:33 PHA Creatinine Clear 83.20 Sodium 133 L Potassium 4.3 Chloride 101 Carbon Dioxide 27.7 Anion Gap 8.6 BUN 13 Creatinine 0.74 Est GFR (CKD-EPI) > 60.0 Glucose 93 Calcium 8.9 A&P - Cardiology (1) Abnormal QT interval present on electrocardiogram: Assessment/Problem Details: QTC interval 432 ms on dofetilide 125 mcg twice daily Plan: continue current medicine, can be discharged from the cardiac standpoint, EKG next week Code(s): R94.31 - Abnormal electrocardiogram [ECG] [EKG] Plan 1?QTc continues to be acceptable. Cont Tikosyn 125 mcg BID. Plan to [facility] inhouse for 5-6 doses. 2?continue other home medications 3-continuous telemetry. Documented By: Shannon Gonzalez MD, [facility] 5 1230 Signed By: <Electronically signed by [facility] Shannon Gonzalez> 07/08/24 1242 [facility] Work Phone: [phone]) 312-575402-24-2025 [place] [id number] Cardiology Progress Note Signed with Juvencio Patient: Mary Mcadams MR#: [id number] : 1955 Acct:[id number] Age/Sex: 68 / M Adm Date: 5 Loc: Room: [address] [place] [address] Type: ADM IN Attending Dr: Ambrose Hsieh MD Copies to: ~ ADDENDUM1 We do not need to continue to monitor the patient anymore on telemetry Addendum Documented By: MD POOL Gonzalez 07/08/24 1245 Addendum Signed By: 07/08/24 1245 Date of Service: 07/08/2024 Subjective Principal diagnosis: Prolonged QT interval Interval history: Overall stable. QTc today 432 ms. Patient can be discharged home today on current dose of Tikosyn, will obtain ECG in the office in 1 week, other medication will be left unchanged Exam Physical Exam Vital Signs: Temp Pulse Resp BP Pulse Ox O2 Del Method O2 Flow Rate 98.7 F 80 18 118/68 96 Room Air 2 07/08/24 11:54 07/08/24 12:29 07/08/24 12:29 07/08/24 11:54 07/08/24 11:54 07/08/24 11:54 07/07/24 17:38 Const General: cooperative, comfortable and no acute [...] no clubbing, cyanosis or edema Objective Labs 07/06/24 06:42 07/08/24 05:33 Labs: Laboratory Results - last 24 hr 07/08/24 05:33 PHA Creatinine Clear 83.20 Sodium 133 L Potassium 4.3 Chloride 101 Carbon Dioxide 27.7 Anion Gap 8.6 BUN 13 Creatinine 0.74 Est GFR (CKD-EPI) > 60.0 Glucose 93 Calcium 8.9 A&P - Cardiology (1) Abnormal QT interval present on electrocardiogram: Assessment/Problem Details: QTC interval 432 ms on dofetilide 125 mcg twice daily Plan: continue current medicine, can be discharged from the cardiac standpoint, EKG next week Code(s): R94.31 - Abnormal electrocardiogram [ECG] [EKG] Plan 1?QTc continues to be acceptable. Cont Tikosyn 125 mcg BID. [facility] 2?continue other home medications 3-continuous telemetry. Documented By: Shannon Gonzalez MD, [facility] 5 1230 Signed By: 07/08/24 1242 [facility]02-23-2025 Progress note Author Andres Herrera [facility] Note Date/Time July 07, 2024 4:21pm [facility] [address] [place] [address] Cardiology Progress Note Signed Patient: Mary Mcadams MR#: [id number] : 1955 Acct:[id number] Age/Sex: 68 / M Adm Date: 5 Loc: Room: [address] [place] [address] Type: ADM IN Attending Dr: Ambrose Hsieh MD Copies to: ~ Date of Service: 07/07/2024 Subjective Interval history: Overall stable. QTc today 451 ms. Cont Tikosyn initiation protocol. Exam Physical Exam Vital Signs: Temp Pulse Resp BP Pulse Ox O2 Del Method O2 Flow Rate 97.5 F L 85 18 118/65 99 Room Air 2 07/07/24 08:00 07/07/24 15:56 07/07/24 15:56 07/07/24 12:00 07/07/24 12:00 07/07/24 15:11 07/04/24 15:22 Const General: cooperative, comfortable and no acute [...] no clubbing, cyanosis or edema Objective Labs 07/06/24 06:42 07/07/24 05:52 Labs: Laboratory Results - last 24 hr 07/07/24 05:52 PHA Creatinine Clear 79.25 Sodium 135 L Potassium 4.5 Chloride 103 Carbon Dioxide 27.1 Anion Gap 9.4 BUN 13 Creatinine 0.82 Est GFR (CKD-EPI) > 60.0 Glucose 88 Calcium 9.1 Magnesium 1.6 L A&P - Cardiology (1) Abnormal QT interval present on electrocardiogram: Assessment/Problem Details: Currently on dofetilide 250 mcg twice daily with no significant electrolyte imbalance or interfering medications. Plan: Dofetilide has been on hold since admission, QTc interval has dropped to just under 500 ms. If ECG tomorrow morning is reasonable with a QTc below 470 ms will resume dofetilide at a dose of 125 mcg twice daily and continue to monitor the patient for the next couple of days. 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 Cont Tikosyn 125 mcg BID. Plan to [facility] inhouse for 5-6 doses. 2?continue other home medications 3-continuous telemetry. Documented By: Andres Herrera MD 06/16 Signed By: <Electronically signed by Andres Herrera MD> 07/07/24 1622 [facility] Work Phone: [phone]) 101-861602-23-2025 Progress note Author Ambrose Hsieh [facility] Note Date/Time July 07, 2024 2:56pm [facility] [address] [place] [address] Hospitalist Progress Note Signed Patient: Mary Mcadams MR#: [id number] : 1955 Acct:[id number] Age/Sex: 68 / M Adm Date: 5 Loc: 3T Room: [address] [place] [address] Type: ADM IN Attending Dr: Ambrose Hsieh MD Copies to: ~ Date of Service: 07/07/2024 Subjective Subjective Narrative: Continues to feel well, understands plan for continued serial EKGs. Does note slight constipation, last bowel movement was 07/05/2024, denies any abdominal pain or bloating. Exam Physical Exam Vital Signs: Temp Pulse Resp BP Pulse Ox O2 Del Method O2 Flow Rate 97.5 F L 78 18 121/74 96 Room Air 2 07/07/24 08:00 07/07/24 08:08 07/07/24 08:08 07/07/24 08:00 07/07/24 08:00 07/07/24 08:00 07/04/24 15:22 Narrative: General: cooperative and comfortable Orientation: alert, awake and oriented x3 Head: normal to inspection Neck: normal visual inspection Cardio: no JVD, regular rate, regular rhythm Chest palpation & inspection: normal inspection of the chest Resp Effort & Inspection: normal respiratory effort Abd: soft, non-tender, non-distended, salinas catheter in place Extremities: Warm well perfused, no edema Objective Lab Results 07/06/24 06:42 07/07/24 05:52 Microbiology Results Microbiology 07/04/24 00:50 Urine - Straight Cath Urine Culture - Final Strep agalactiae - (group b) Meds Allergies and Active Meds Allergies No Known Allergies Allergy (Verified 07/03/24 18:33) Active Meds: Active Medications Generic Name Dose Route Start Last Admin Trade Name Freq PRN Reason Stop Dose Admin Acetaminophen 1,000 mg 07/03/24 23:14 07/05/24 01:19 Acetaminophen 500 Mg Tablet PO 07/03/25 23:13 1,000 mg Q6HR PRN Administration Pain Scale 1 - 3 or fever Albuterol 2 puff 07/04/24 00:00 Albuterol Hfa 60 Puff/8 Gram Inhaler INHALATION 07/04/25 00:00 Q6HR PRN PRN SHORTNESS OF BREATH Albuterol/Ipratropium 3 ml 07/04/24 08:00 07/07/24 08:06 Ipratropium/Albuterol 0.5-3 Mg 3 Ml Ampul.Neb INHALATION 07/04/25 07:59 3 ml QID.RESP ALEX Administration Atorvastatin Calcium 40 mg 07/04/24 21:00 07/06/24 20:29 Atorvastatin 40 Mg Tablet PO 07/04/25 20:59 40 mg QPM ALEX Administration Budesonide/Formoterol Fumarate 2 puff 07/04/24 09:00 07/07/24 08:06 Budesonide/Formoterol 160-4.5 Mcg 60 Puff/6 Gm Hfa.Aer.Ad INHALATION 07/04/25 08:59 2 puff BID ALEX Administration Dofetilide 125 mcg 07/06/24 11:00 07/07/24 08:53 Dofetilide 125 Mcg Capsule PO 07/06/25 10:59 125 mcg BID ALEX Administration Finasteride 5 mg 07/04/24 09:00 07/07/24 08:57 Finasteride 5 Mg Tablet PO 07/04/25 08:59 5 mg DAILY ALEX Administration Fluticasone Propionate 1 spray 07/04/24 09:00 07/07/24 08:55 Fluticasone Propionate [place] 120 [place]/16 Gm Bottle INTRANASAL 07/04/25 08:59 1 spray DAILY ALEX Administration Ceftriaxone Sodium 1 gm in 50 mls @ 100 mls/hr 07/04/24 23:00 07/06/24 23:12 Rocephin IV 100 mls/hr Q24H ALEX Administration Latanoprost 1 drops 07/04/24 22:00 07/06/24 21:51 Latanoprost 0.005% Op Soln 50 Drops/2.5 Ml Bottle EYE-BOTH 07/04/25 21:59 Not Given HS ALEX Magnesium Oxide 400 mg 07/04/24 09:00 07/07/24 08:54 Magnesium Oxide 400 Mg Tablet PO 07/04/25 08:59 400 mg DAILY ALEX Administration Melatonin 5 mg 07/03/24 23:14 Melatonin 5 Mg Tablet PO 07/03/25 23:13 QHS PRN Insomnia Metoprolol Succinate 25 mg 07/04/24 09:00 07/07/24 08:54 Metoprolol Succinate 25 Mg Tab.Er.24h PO 07/04/25 08:59 25 mg DAILY ALEX Administration Ondansetron HCl 4 mg 07/03/24 23:14 07/04/24 19:48 Ondansetron Odt 4 Mg Tab.Rapdis PO 07/03/25 23:13 4 mg Q6HR PRN Administration Nausea And Vomiting Oxycodone HCl 5 mg 07/03/24 23:14 Oxycodone Ir 5 Mg Tablet PO Q6HR PRN Pain Scale 4 - 7 Pantoprazole Sodium 40 mg 07/04/24 07:30 07/07/24 08:54 Pantoprazole 40 Mg Tablet.Dr PO 07/04/25 07:29 40 mg DAILY.AC.BKFAST ALEX Administration Potassium Chloride 10 meq 07/04/24 09:00 07/07/24 08:54 Potassium Chloride Er 10 Meq Tablet.Er PO 07/04/25 08:59 10 meq DAILY ALEX Administration Rivaroxaban 20 mg 07/04/24 08:00 07/07/24 08:54 Rivaroxaban 20 Mg Tablet PO 07/04/25 07:59 20 mg DAILY.WITH.BKFAST ALEX Administration Sodium Chloride 0 ml 07/03/24 18:33 07/03/24 20:46 Sodium Chloride 0.9 % 10 Ml Syringe IV-PUSH 07/03/25 18:32 10 ml PRN PRN Administration Flush Sodium Chloride 0 ml 07/04/24 06:00 07/07/24 05:07 Sodium Chloride 0.9 % 10 Ml Syringe IV-PUSH 07/04/25 05:59 Not Given QSHIFT ALEX Tamsulosin HCl 0.4 mg 07/04/24 09:00 07/07/24 08:54 Tamsulosin 0.4 Mg Cap.Er.24h PO 07/04/25 08:59 0.4 mg BID ALEX Administration A&P - Hospitalist Assessment/Plan (1) Weakness: (2) Fall: (3) Compression fracture of body of thoracic vertebra: (4) Altered mental status: (5) UTI (urinary tract infection): Plan Weakness/Debility Fall- mechanical fall from ground height Compression fracture to T7 - Fall precautions - Up with assist - Reports decreased appetite and fluid intake lately and diarrhea - tolerating PO, will add dose of miralax for constipation today Altered mental status- could be due to urine retention- has not self cathed for about a month, ran out of supplies and felt he was not retaining urine UTI - Currently alert and oriented -Prelim urine cultures resulted group B strep greater than 100,000 colony- forming units - Ceftriaxone, 5 day course. - void trial today A-fib - on dofetilide daily held at present with prolonged QTc at 567 - QTc 451 this am, resumed tikosyn at 125 mcg bid on 07/06/24 as recommended by cardiology - continued EKG monitoring for additional day as requested by cardiology Hematoma/infectious process to left gluteal soft tissues- measures 2.5cm - suspected hematoma given fall, no hgb drop ok to continue anticoagulation Chronic conditions A-fib- continue rivaroxaban BPH- finasteride, tamsulosin Sarcoidosis, chronic hypoxic respiratory failure on home oxygen- continue oxygen, nebulizers, inhalers DVT PPx?rivaroxaban for afib as above Diet order?regular CODE STATUS?full code Disposition - PT/OT recommending SNF, patient and family agreeable. Documented By: Ambrose Hsieh MD 07/07/24 1016 Signed By: <Electronically signed by Ambrose Hsieh MD> 07/07/24 [facility] Work Phone: 1(778) 108-712202-23-2025 [place] [id number] Cardiology Progress Note Signed Patient: Mary Mcadams MR#: [id number] : 1955 Acct:[id number] Age/Sex: 68 / M Adm Date: 5 Loc: Room: [address] [place] [address] Type: ADM IN Attending Dr: Ambrose Hsieh MD Copies to: ~ Date of Service: 07/07/2024 Subjective Interval history: Overall stable. QTc today 451 ms. Cont Tikosyn initiation protocol. Exam Physical Exam Vital Signs: Temp Pulse Resp BP Pulse Ox O2 Del Method O2 Flow Rate 97.5 F L 85 18 118/65 99 Room Air 2 07/07/24 08:00 07/07/24 15:56 07/07/24 15:56 07/07/24 12:00 07/07/24 12:00 07/07/24 15:11 07/04/24 15:22 Const General: cooperative, comfortable and no acute [...] no clubbing, cyanosis or edema Objective Labs 07/06/24 06:42 07/07/24 05:52 Labs: Laboratory Results - last 24 hr 07/07/24 05:52 PHA Creatinine Clear 79.25 Sodium 135 L Potassium 4.5 Chloride 103 Carbon Dioxide 27.1 Anion Gap 9.4 BUN 13 Creatinine 0.82 Est GFR (CKD-EPI) > 60.0 Glucose 88 Calcium 9.1 Magnesium 1.6 L A&P - Cardiology (1) Abnormal QT interval present on electrocardiogram: Assessment/Problem Details: Currently on dofetilide 250 mcg twice daily with no significant electrolyte imbalance or interfering medications. Plan: Dofetilide has been on hold since admission, QTc interval has dropped to just under 500 ms. If ECG tomorrow morning is reasonable with a QTc below 470 ms will resume dofetilide at a dose of 125 mcg twice daily and continue to monitor the patient for the next couple of days. 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 Cont Tikosyn 125 mcg BID. Plan to [facility]ior inhouse for 5-6 doses. 2?continue other home medications 3-continuous telemetry. Documented By: Andres Herrera MD 06/16 Signed By: 07/07/24 1621 [facility]02-23-[place] [address] Hospitalist Progress Note Signed Patient: Mary Mcadams MR#: [id number] : 1955 Acct:[id number] Age/Sex: 68 / M Adm Date: 5 Loc: Room: [address] [place] [address] Type: ADM IN Attending Dr: Ambrose Hsieh MD Copies to: ~ Date of Service: 07/07/2024 Subjective Subjective Narrative: Continues to feel well, understands plan for continued serial EKGs. Does note slight constipation, last bowel movement was 07/05/2024, denies any abdominal pain or bloating. Exam Physical Exam Vital Signs: Temp Pulse Resp BP Pulse Ox O2 Del Method O2 Flow Rate 97.5 F L 78 18 121/74 96 Room Air 2 07/07/24 08:00 07/07/24 08:08 07/07/24 08:08 07/07/24 08:00 07/07/24 08:00 07/07/24 08:00 07/04/24 15:22 Narrative: General: cooperative and comfortable Orientation: alert, awake and oriented x3 Head: normal to inspection Neck: normal visual inspection Cardio: no JVD, regular rate, regular rhythm Chest palpation & inspection: normal inspection of the chest Resp Effort & Inspection: normal respiratory effort Abd: soft, non-tender, non-distended, sal[place] catheter in place Extremities: Warm well perfused, no edema Objective Lab Results 07/06/24 06:42 07/07/24 05:52 Microbiology Results Microbiology 07/04/24 00:50 Urine - Straight Cath Urine Culture - Final Strep agalactiae - (group b) Meds Allergies and Active Meds Allergies No Known Allergies Allergy (Verified 07/03/24 18:33) Active Meds: Active Medications Generic Name Dose Route Start Last Admin Trade Name Freq PRN Reason Stop Dose Admin Acetaminophen 1,000 mg 07/03/24 23:14 07/05/24 01:19 Acetaminophen 500 Mg Tablet PO 07/03/25 23:13 1,000 mg Q6HR PRN Administration Pain Scale 1 - 3 or fever Albuterol 2 puff 07/04/24 00:00 Albuterol Hfa 60 Puff/8 Gram Inhaler INHALATION 07/04/25 00:00 Q6HR PRN PRN SHORTNESS OF BREATH Albuterol/Ipratropium 3 ml 07/04/24 08:00 07/07/24 08:06 Ipratropium/Albuterol 0.5-3 Mg 3 Ml Ampul.Neb INHALATION 07/04/25 07:59 3 ml QID.RESP ALEX Administration Atorvastatin Calcium 40 mg 07/04/24 21:00 07/06/24 20:29 Atorvastatin 40 Mg Tablet PO 07/04/25 20:59 40 mg QPM ALEX Administration Budesonide/Formoterol Fumarate 2 puff 07/04/24 09:00 07/07/24 08:06 Budesonide/Formoterol 160-4.5 Mcg 60 Puff/6 Gm Hfa.Aer.Ad INHALATION 07/04/25 08:59 2 puff BID ALEX Administration Dofetilide 125 mcg 07/06/24 11:00 07/07/24 08:53 Dofetilide 125 Mcg Capsule PO 07/06/25 10:59 125 mcg BID ALEX Administration Finasteride 5 mg 07/04/24 09:00 07/07/24 08:57 Finasteride 5 Mg Tablet PO 07/04/25 08:59 5 mg DAILY ALEX Administration Fluticasone Propionate 1 spray 07/04/24 09:00 07/07/24 08:55 Fluticasone Propionate [place] 120 [place]/16 Gm Bottle INTRANASAL 07/04/25 08:59 1 spray DAILY ALEX Administration Ceftriaxone Sodium 1 gm in 50 mls @ 100 mls/hr 07/04/24 23:00 07/06/24 23:12 Rocephin IV 100 mls/hr Q24H ALEX Administration Latanoprost 1 drops 07/04/24 22:00 07/06/24 21:51 Latanoprost 0.005% Op Soln 50 Drops/2.5 Ml Bottle EYE-BOTH 07/04/25 21:59 Not Given HS ALEX Magnesium Oxide 400 mg 07/04/24 09:00 07/07/24 08:54 Magnesium Oxide 400 Mg Tablet PO 07/04/25 08:59 400 mg DAILY ALEX Administration Melatonin 5 mg 07/03/24 23:14 Melatonin 5 Mg Tablet PO 07/03/25 23:13 QHS PRN Insomnia Metoprolol Succinate 25 mg 07/04/24 09:00 07/07/24 08:54 Metoprolol Succinate 25 Mg Tab.Er.24h PO 07/04/25 08:59 25 mg DAILY ALEX Administration Ondansetron HCl 4 mg 07/03/24 23:14 07/04/24 19:48 Ondansetron Odt 4 Mg Tab.Rapdis PO 07/03/25 23:13 4 mg Q6HR PRN Administration Nausea And Vomiting Oxycodone HCl 5 mg 07/03/24 23:14 Oxycodone Ir 5 Mg Tablet PO Q6HR PRN Pain Scale 4 - 7 Pantoprazole Sodium 40 mg 07/04/24 07:30 07/07/24 08:54 Pantoprazole 40 Mg Tablet. PO 07/04/25 07:29 40 mg DAILY.AC.BKFAST ALEX Administration Potassium Chloride 10 meq 07/04/24 09:00 07/07/24 08:54 Potassium Chloride Er 10 Meq Tablet.Er PO 07/04/25 08:59 10 meq DAILY ALEX Administration Rivaroxaban 20 mg 07/04/24 08:00 07/07/24 08:54 Rivaroxaban 20 Mg Tablet PO 07/04/25 07:59 20 mg DAILY.WITH.BKFAST ALEX Administration Sodium Chloride 0 ml 07/03/24 18:33 07/03/24 20:46 Sodium Chloride 0.9 % 10 Ml Syringe IV-PUSH 07/03/25 18:32 10 ml PRN PRN Administration Flush Sodium Chloride 0 ml 07/04/24 06:00 07/07/24 05:07 Sodium Chloride 0.9 % 10 Ml Syringe IV-PUSH 07/04/25 05:59 Not Given QSHIFT ALEX Tamsulosin HCl 0.4 mg 07/04/24 09:00 07/07/24 08:54 Tamsulosin 0.4 Mg Cap.Er.24h PO 02/20/26 08:59 0.4 mg BID ALEX Administration A&P - Hospitalist Assessment/Plan (1) Weakness: (2) Fall: (3) Compression fracture of body of thoracic vertebra: (4) Altered mental status: (5) UTI (urinary tract infection): Plan Weakness/Debility Fall- mechanical fall from ground height Compression fracture to T7 - Fall precautions - Up with assist - Reports decreased appetite and fluid intake lately and diarrhea - tolerating PO, will add dose of miralax for constipation today Altered mental status- could be due to urine retention- has not self cathed for about a month, ran out of supplies and felt he was not retaining urine UTI - Currently alert and oriented -Prelim urine cultures resulted group B strep greater than 100,000 colony- forming units - Ceftriaxone, 5 day course. - void trial today A-fib - on dofetilide daily held at present with prolonged QTc at 567 - QTc 451 this am, resumed tikosyn at 125 mcg bid on 07/06/24 as recommended by cardiology - continued EKG monitoring for additional day as requested by cardiology Hematoma/infectious process to left gluteal soft tissues- measures 2.5cm - suspected hematoma given fall, no hgb drop ok to continue anticoagulation Chronic conditions A-fib- continue rivaroxaban BPH- finasteride, tamsulosin Sarcoidosis, chronic hypoxic respiratory failure on home oxygen- continue oxygen, nebulizers, inhalers DVT PPx?rivaroxaban for afib as above Diet order?regular CODE STATUS?full code Disposition - PT/OT recommending SNF, patient and family agreeable. Documented By: Ambrose Hsieh MD 07/07/24 1016 Signed By: 07/07/24 1456 [facility]02-22-2025 Progress note Author Andres Herrera [facility] Note Date/Time July 06, 2024 4:37pm [facility] [address] [place] [address] Cardiology Progress Note Signed Patient: Mary Mcadams MR#: [id number] : 1955 Acct:[id number] Age/Sex: 68 / M Adm Date: 5 Loc: 3T Room: [address] [place] [address] Type: ADM IN Attending Dr: Ambrose Hsieh MD Copies to: ~ Date of Service: 07/06/2024 Subjective Interval history: Overall stable. QTc today 455 ms. Spoke to patient and family and explained planto get him back on Tikosyn. Exam Physical Exam Vital Signs: Temp Pulse Resp BP Pulse Ox O2 Del Method O2 Flow Rate 97.6 F 80 20 125/76 99 Room Air 2 07/06/24 08:04 07/06/24 15:46 07/06/24 15:46 07/06/24 15:41 07/06/24 15:41 07/06/24 15:41 07/04/24 15:22 Const General: cooperative, comfortable and no acute [...] no clubbing, cyanosis or edema Objective Labs 07/06/24 06:42 07/04/24 07:32 Labs: Laboratory Results - last 24 hr 07/06/24 06:42 Corrected WBC 5.2 RBC 2.93 L Hgb 8.2 L Hct 24.3 L MCV 83.1 L MCH 27.9 MCHC 33.6 RDW 16.0 H Plt Count 294 MPV 7.2 A&P - Cardiology (1) Abnormal QT interval present on electrocardiogram: Assessment/Problem Details: Currently on dofetilide 250 mcg twice daily with no significant electrolyte imbalance or interfering medications. Plan: Dofetilide has been on hold since admission, QTc interval has dropped to just under 500 ms. If ECG tomorrow morning is reasonable with a QTc below 470 ms will resume dofetilide at a dose of 125 mcg twice daily and continue to monitor the patient for the next couple of days. 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 Start Tikosyn 125 mcg BID. Plan to [facility] inhouse for 5-6 doses. 2?continue other home medications 3-continuous telemetry. Documented By: Andres Herrera MD 06/16 Signed By: <Electronically signed by Andres Herrera MD> 07/06/24 1637 [facility] Work Phone: 1(758) 830-188302-22-20[place] [address] Cardiology Progress Note Signed Patient: Mary Mcadams MR#: [id number] : 1955 Acct:[id number] Age/Sex: 68 / M Adm Date: 5 Loc: Room: [address] [place] [address] Type: ADM IN Attending Dr: Ambrose Hsieh MD Copies to: ~ Date of Service: 07/06/2024 Subjective Interval history: Overall stable. QTc today 455 ms. Spoke to patient and family and explained planto get him back on Tikosyn. Exam Physical Exam Vital Signs: Temp Pulse Resp BP Pulse Ox O2 Del Method O2 Flow Rate 97.6 F 80 20 125/76 99 Room Air 2 07/06/24 08:04 07/06/24 15:46 07/06/24 15:46 07/06/24 15:41 07/06/24 15:41 07/06/24 15:41 07/04/24 15:22 Const General: cooperative, comfortable and no acute [...] no clubbing, cyanosis or edema Objective Labs 07/06/24 06:42 07/04/24 07:32 Labs: Laboratory Results - last 24 hr 07/06/24 06:42 Corrected WBC 5.2 RBC 2.93 L Hgb 8.2 L Hct 24.3 L MCV 83.1 L MCH 27.9 MCHC 33.6 RDW 16.0 H Plt Count 294 MPV 7.2 A&P - Cardiology (1) Abnormal QT interval present on electrocardiogram: Assessment/Problem Details: Currently on dofetilide 250 mcg twice daily with no significant electrolyte imbalance or interfering medications. Plan: Dofetilide has been on hold since admission, QTc interval has dropped to just under 500 ms. If ECG tomorrow morning is reasonable with a QTc below 470 ms will resume dofetilide at a dose of 125 mcg twice daily and continue to monitor the patient for the next couple of days. 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 Start Tikosyn 125 mcg BID. Plan to [facility] inhouse for 5-6 doses. 2?continue other home medications 3-continuous telemetry. Documented By: Andres Herrera MD 06/16 Signed By: 07/06/24 1637 [facility]02-22-2025 Progress note Author Ambrose Hsieh [facility] Note Date/Time July 06, 2024 12:20pm [facility] [address] [place] [address] Hospitalist Progress Note Signed with Juvencio Patient: Mary Mcadams MR#: [id number] : 1955 Acct:[id number] Age/Sex: 68 / M Adm Date: 5 Loc: 3T Room: [address] [place] [address] Type: ADM IN Attending Dr: Ambrose Hsieh MD Copies to: ~ ADDENDUM1 Will need to be remain in patient for next 72 hours to monitor QTc. Regarding vision concerns, seen by Dr. Moura (Vascular surgery) for R carotid stenosis, < 50% on L, has 6 month follow up planned. Will refer to outpatient ophthamology unless change in vision while in patient. Addendum Documented By: Ambrose Hsieh MD 07/06/24 1220 Addendum Signed By: <Electronically signed by Ambrose Hsieh MD> 07/06/24 1220 Date of Service: 07/06/2024 Subjective Subjective Narrative: Continues to feel well, no chest pain or shortness of breath. Does note concernsfor loss of vision for the past 6 months or so, reports being evaluated by opthamology. 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 Updated family at bedside, brother and nephew, regarding plan for discharge to SNF, need for continued monitoring in hospital due to reinitiation of heart ratemedication. Exam Physical Exam Vital Signs: Temp Pulse Resp BP Pulse Ox O2 Del Method O2 Flow Rate 97.6 F 74 18 123/76 97 Room Air 2 07/06/24 08:04 07/06/24 08:04 07/06/24 08:04 07/06/24 08:04 07/06/24 08:04 07/06/24 08:04 07/04/24 15:22 Narrative: General: cooperative and comfortable Orientation: alert, awake and oriented x3 Head: normal to inspection Neck: normal visual inspection Cardio: no JVD, regular rate, regular rhythm Chest palpation & inspection: normal inspection of the chest Resp Effort & Inspection: normal respiratory effort Abd: soft, non-tender, non-distended, [place] catheter in place Extremities: Warm well perfused, no edema Objective Lab Results 07/06/24 06:42 07/04/24 07:32 Microbiology Results Microbiology 07/04/24 00:50 Urine - Straight Cath Urine Culture - Final Strep agalactiae - (group b) Meds Allergies and Active Meds Allergies No Known Allergies Allergy (Verified 07/03/24 18:33) Active Meds: Active Medications Generic Name Dose Route Start Last Admin Trade Name Freq PRN Reason Stop Dose Admin Acetaminophen 1,000 mg 07/03/24 23:14 07/05/24 01:19 Acetaminophen 500 Mg Tablet PO 07/03/25 23:13 1,000 mg Q6HR PRN Administration Pain Scale 1 - 3 or fever Albuterol 2 puff 07/04/24 00:00 Albuterol Hfa 60 Puff/8 Gram Inhaler INHALATION 07/04/25 00:00 Q6HR PRN PRN SHORTNESS OF BREATH Albuterol/Ipratropium 3 ml 07/04/24 08:00 07/06/24 11:20 Ipratropium/Albuterol 0.5-3 Mg 3 Ml Ampul.Neb INHALATION 07/04/25 07:59 3 ml QID.RESP ALEX Administration Atorvastatin Calcium 40 mg 07/04/24 21:00 07/05/24 21:25 Atorvastatin 40 Mg Tablet PO 07/04/25 20:59 40 mg QPM ALEX Administration Budesonide/Formoterol Fumarate 2 puff 07/04/24 09:00 07/06/24 07:48 Budesonide/Formoterol 160-4.5 Mcg 60 Puff/6 Gm Hfa.Aer.Ad INHALATION 07/04/25 08:59 2 puff BID ALEX Administration Dofetilide 125 mcg 07/06/24 11:00 Dofetilide 125 Mcg Capsule PO 07/06/25 10:59 BID ALEX Finasteride 5 mg 07/04/24 09:00 07/06/24 09:31 Finasteride 5 Mg Tablet PO 07/04/25 08:59 5 mg DAILY ALEX Administration Fluticasone Propionate 1 spray 07/04/24 09:00 07/06/24 09:33 Fluticasone Propionate [place] 120 [place]/16 Gm Bottle INTRANASAL 07/04/25 08:59 1 spray DAILY ALEX Administration Ceftriaxone Sodium 1 gm in 50 mls @ 100 mls/hr 07/04/24 23:00 07/05/24 23:17 Rocephin IV 100 mls/hr Q24H ALEX Administration Latanoprost 1 drops 07/04/24 22:00 07/05/24 21:25 Latanoprost 0.005% Op Soln 50 Drops/2.5 Ml Bottle EYE-BOTH 07/04/25 21:59 1drops HS ALEX Administration Magnesium Oxide 400 mg 07/04/24 09:00 07/06/24 09:30 Magnesium Oxide 400 Mg Tablet PO 07/04/25 08:59 400 mg DAILY ALEX Administration Melatonin 5 mg 07/03/24 23:14 Melatonin 5 Mg Tablet PO 07/03/25 23:13 QHS PRN Insomnia Metoprolol Succinate 25 mg 07/04/24 09:00 07/06/24 09:31 Metoprolol Succinate 25 Mg Tab.Er.24h PO 07/04/25 08:59 25 mg DAILY ALEX Administration Ondansetron HCl 4 mg 07/03/24 23:14 07/04/24 19:48 Ondansetron Odt 4 Mg Tab.Rapdis PO 07/03/25 23:13 4 mg Q6HR PRN Administration Nausea And Vomiting Oxycodone HCl 5 mg 07/03/24 23:14 Oxycodone Ir 5 Mg Tablet PO Q6HR PRN Pain Scale 4 - 7 Pantoprazole Sodium 40 mg 07/04/24 07:30 07/06/24 09:30 Pantoprazole 40 Mg Tablet.Dr PO 07/04/25 07:29 40 mg DAILY.AC.BKFAST ALEX Administration Potassium Chloride 10 meq 07/04/24 09:00 07/06/24 09:31 Potassium Chloride Er 10 Meq Tablet.Er PO 07/04/25 08:59 10 meq DAILY ALEX Administration Rivaroxaban 20 mg 07/04/24 08:00 07/06/24 09:31 Rivaroxaban 20 Mg Tablet PO 07/04/25 07:59 20 mg DAILY.WITH.BKFAST ALEX Administration Sodium Chloride 0 ml 07/03/24 18:33 07/03/24 20:46 Sodium Chloride 0.9 % 10 Ml Syringe IV-PUSH 07/03/25 18:32 10 ml PRN PRN Administration Flush Sodium Chloride 0 ml 07/04/24 06:00 07/06/24 05:48 Sodium Chloride 0.9 % 10 Ml Syringe IV-PUSH 07/04/25 05:59 10 ml QSHIFT ALEX Administration Tamsulosin HCl 0.4 mg 07/04/24 09:00 07/06/24 09:37 Tamsulosin 0.4 Mg Cap.Er.24h PO 07/04/25 08:59 0.4 mg BID ALEX Administration A&P - Hospitalist Assessment/Plan (1) Weakness: (2) Fall: (3) Compression fracture of body of thoracic vertebra: (4) Altered mental status: (5) UTI (urinary tract infection): Plan Weakness/Debility Fall- mechanical fall from ground height Compression fracture to T7 - Fall precautions - Up with assist - Reports decreased appetite and fluid intake lately and diarrhea - tolerating PO, ok to hold on IV fluids. Altered mental status- could be due to urine retention- has not self cathed for about a month, ran out of supplies and felt he was not retaining urine UTI - Currently alert and oriented -Prelim urine cultures resulted group B strep greater than 100,000 colony- forming units - Continue ceftriaxone - continue [place] catheter, void trial prior to discharge A-fib - on dofetilide daily held at present with prolonged QTc at 567 - QTc 455 this am, resumed tikosyn at 125 mcg bid as recommended by cardiology Hematoma/infectious process to left gluteal soft tissues- measures 2.5cm - suspected hematoma given fall, no hgb drop ok to continue anticoagulation Chronic conditions A-fib- continue rivaroxaban BPH- finasteride, tamsulosin Sarcoidosis, chronic hypoxic respiratory failure on home oxygen- continue oxygen, nebulizers, inhalers DVT PPx?rivaroxaban for afib as above Diet order?regular CODE STATUS?full code Disposition - PT/OT recommending SNF, patient and family agreeable. Documented By: Ambrose Hsieh MD 07/06/24 1207 Signed By: <Electronically signed by Ambrose Hsieh MD> 07/06/24 1212 [facility] Work Phone: 1(646) 967-370202-22-2025 [place] [address] Hospitalist Progress Note Signed with Addenda Patient: Mary Mcadams MR#: [id number] : 1955 Acct:[id number] Age/Sex: 68 / M Adm Date: 5 Loc: 3T Room: [address] [place] [address] Type: ADM IN Attending Dr: Ambrose Hsieh MD Copies to: ~ ADDENDUM1 Will need to be remain in patient for next 72 hours to monitor QTc. Regarding vision concerns, seen by Dr. Moura (Vascular surgery) for R carotid stenosis, < 50% on L, has 6 month follow up planned. Will refer to outpatient ophthamology unless change in vision while in patient. Addendum Documented By: Ambrose Hsieh MD 07/06/24 1220 Addendum Signed By: 07/06/24 1220 Date of Service: 07/06/2024 Subjective Subjective Narrative: Continues to feel well, no chest pain or shortness of breath. Does note concernsfor loss of vision for the past 6 months or so, reports being evaluated by opthamology. 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 Updated family at bedside, brother and nephew, regarding plan for discharge to SNF, need for continued monitoring in hospital due to reinitiation of heart ratemedication. Exam Physical Exam Vital Signs: Temp Pulse Resp BP Pulse Ox O2 Del Method O2 Flow Rate 97.6 F 74 18 123/76 97 Room Air 2 07/06/24 08:04 07/06/24 08:04 07/06/24 08:04 07/06/24 08:04 07/06/24 08:04 07/06/24 08:04 07/04/24 15:22 Narrative: General: cooperative and comfortable Orientation: alert, awake and oriented x3 Head: normal to inspection Neck: normal visual inspection Cardio: no JVD, regular rate, regular rhythm Chest palpation & inspection: normal inspection of the chest Resp Effort & Inspection: normal respiratory effort Abd: soft, non-tender, non-distended, sal[place] catheter in place Extremities: Warm well perfused, no edema Objective Lab Results 07/06/24 06:42 07/04/24 07:32 Microbiology Results Microbiology 07/04/24 00:50 Urine - Straight Cath Urine Culture - Final Strep agalactiae - (group b) Meds Allergies and Active Meds Allergies No Known Allergies Allergy (Verified 07/03/24 18:33) Active Meds: Active Medications Generic Name Dose Route Start Last Admin Trade Name Freq PRN Reason Stop Dose Admin Acetaminophen 1,000 mg 07/03/24 23:14 07/05/24 01:19 Acetaminophen 500 Mg Tablet PO 07/03/25 23:13 1,000 mg Q6HR PRN Administration Pain Scale 1 - 3 or fever Albuterol 2 puff 07/04/24 00:00 Albuterol Hfa 60 Puff/8 Gram Inhaler INHALATION 07/04/25 00:00 Q6HR PRN PRN SHORTNESS OF BREATH Albuterol/Ipratropium 3 ml 07/04/24 08:00 07/06/24 11:20 Ipratropium/Albuterol 0.5-3 Mg 3 Ml Ampul.Neb INHALATION 07/04/25 07:59 3 ml QID.RESP ALEX Administration Atorvastatin Calcium 40 mg 07/04/24 21:00 07/05/24 21:25 Atorvastatin 40 Mg Tablet PO 07/04/25 20:59 40 mg QPM ALEX Administration Budesonide/Formoterol Fumarate 2 puff 07/04/24 09:00 07/06/24 07:48 Budesonide/Formoterol 160-4.5 Mcg 60 Puff/6 Gm Hfa.Aer.Ad INHALATION 07/04/25 08:59 2 puff BID ALEX Administration Dofetilide 125 mcg 07/06/24 11:00 Dofetilide 125 Mcg Capsule PO 07/06/25 10:59 BID ALEX Finasteride 5 mg 07/04/24 09:00 07/06/24 09:31 Finasteride 5 Mg Tablet PO 07/04/25 08:59 5 mg DAILY ALEX Administration Fluticasone Propionate 1 spray 07/04/24 09:00 07/06/24 09:33 Fluticasone Propionate [place] 120 [place]/16 Gm Bottle INTRANASAL 07/04/25 08:59 1 spray DAILY ALEX Administration Ceftriaxone Sodium 1 gm in 50 mls @ 100 mls/hr 07/04/24 23:00 07/05/24 23:17 Rocephin IV 100 mls/hr Q24H ALEX Administration Latanoprost 1 drops 07/04/24 22:00 07/05/24 21:25 Latanoprost 0.005% Op Soln 50 Drops/2.5 Ml Bottle EYE-BOTH 07/04/25 21:59 1drops HS ALEX Administration Magnesium Oxide 400 mg 07/04/24 09:00 07/06/24 09:30 Magnesium Oxide 400 Mg Tablet PO 07/04/25 08:59 400 mg DAILY ALEX Administration Melatonin 5 mg 07/03/24 23:14 Melatonin 5 Mg Tablet PO 07/03/25 23:13 QHS PRN Insomnia Metoprolol Succinate 25 mg 07/04/24 09:00 07/06/24 09:31 Metoprolol Succinate 25 Mg Tab.Er.24h PO 07/04/25 08:59 25 mg DAILY ALEX Administration Ondansetron HCl 4 mg 07/03/24 23:14 07/04/24 19:48 Ondansetron Odt 4 Mg Tab.Rapdis PO 07/03/25 23:13 4 mg Q6HR PRN Administration Nausea And Vomiting Oxycodone HCl 5 mg 07/03/24 23:14 Oxycodone Ir 5 Mg Tablet PO Q6HR PRN Pain Scale 4 - 7 Pantoprazole Sodium 40 mg 07/04/24 07:30 07/06/24 09:30 Pantoprazole 40 Mg Tablet.Dr PO 07/04/25 07:29 40 mg DAILY.AC.BKFAST ALEX Administration Potassium Chloride 10 meq 07/04/24 09:00 07/06/24 09:31 Potassium Chloride Er 10 Meq Tablet.Er PO 07/04/25 08:59 10 meq DAILY ALEX Administration Rivaroxaban 20 mg 07/04/24 08:00 07/06/24 09:31 Rivaroxaban 20 Mg Tablet PO 07/04/25 07:59 20 mg DAILY.WITH.BKFAST ALEX Administration Sodium Chloride 0 ml 07/03/24 18:33 07/03/24 20:46 Sodium Chloride 0.9 % 10 Ml Syringe IV-PUSH 07/03/25 18:32 10 ml PRN PRN Administration Flush Sodium Chloride 0 ml 07/04/24 06:00 07/06/24 05:48 Sodium Chloride 0.9 % 10 Ml Syringe IV-PUSH 07/04/25 05:59 10 ml QSHIFT ALEX Administration Tamsulosin HCl 0.4 mg 07/04/24 09:00 07/06/24 09:37 Tamsulosin 0.4 Mg Cap.Er.24h PO 07/04/25 08:59 0.4 mg BID ALEX Administration A&P - Hospitalist Assessment/Plan (1) Weakness: (2) Fall: (3) Compression fracture of body of thoracic vertebra: (4) Altered mental status: (5) UTI (urinary tract infection): Plan Weakness/Debility Fall- mechanical fall from ground height Compression fracture to T7 - Fall precautions - Up with assist - Reports decreased appetite and fluid intake lately and diarrhea - tolerating PO, ok to hold on IV fluids. Altered mental status- could be due to urine retention- has not self cathed for about a month, ran out of supplies and felt he was not retaining urine UTI - Currently alert and oriented -Prelim urine cultures resulted group B strep greater than 100,000 colony- forming units - Continue ceftriaxone - continue [place] catheter, void trial prior to discharge A-fib - on dofetilide daily held at present with prolonged QTc at 567 - QTc 455 this am, resumed tikosyn at 125 mcg bid as recommended by cardiology Hematoma/infectious process to left gluteal soft tissues- measures 2.5cm - suspected hematoma given fall, no hgb drop ok to continue anticoagulation Chronic conditions A-fib- continue rivaroxaban BPH- finasteride, tamsulosin Sarcoidosis, chronic hypoxic respiratory failure on home oxygen- continue oxygen, nebulizers, inhalers DVT PPx?rivaroxaban for afib as above Diet order?regular CODE STATUS?full code Disposition - PT/OT recommending SNF, patient and family agreeable. Documented By: Ambrose Hsieh MD 07/06/24 1208 Signed By: 07/06/24 1217 [facility]02-21-2025 Consult note Author Shannon Gonzalez [facility] Note Date/Time July 05, 2024 4:56pm [facility] [address] [place], [place] [id number] Cardiology Consult Note Signed Patient: Mary Mcadams MR#: [id number] : 1955 Acct:[id number] Age/Sex: 68 / M Adm Date: 5 Loc: 3T Room: [address] [place] [address] Type: ADM IN Attending Dr: Ambrose Hsieh MD Copies to: Adam Del Valle,DO Shannon Gonzalez MD, [facility] Ambrose Hsieh MD~ Cardiology HPI History of Present Illness Consult Date: 07/05/24 Reason for Consult: Abnormal ECG, prolonged QT interval HPI: Mr. Mcadams is a 68 year old male who is being seen at request of the hospitalist for abnormal EKG. Patient is on dofetilide 250 mcg twice daily for paroxysmal atrial fibrillation he was last seen in my office in May 2024. The patient has no underlying organic heart disease. His nuclear stress test June 08 was normal. Previous echocardiogram revealed LV systolic dysfunctionwhich apparently has normalized. Ejection fraction measured 57% by nuclear stress test May 2024. The patient is admitted for UTI and incidentally was found to have prolonged QT interval up to 574 ms. There were diffuse repolarization abnormalities noted as well. Tikosyn was discontinued since admission and his QTc interval today is down just under 500 ms. In the meantimehe remained in sinus rhythm and his cardiac status has been stable. He has other medical problems include pulmonary sarcoidosis, severe right internal carotid artery stenosis diagnosed in February 2024 with recommendation by surgeryto manage medically. He is asymptomatic. He does have previous history of alcohol abuse which ended last year. Will be doing daily EKG and once he is safe as far as QTc interval is concerned the dose will be resumed at 125 mcg twice daily. Meanwhile the patient is resting comfortably and has no complaints. His UTI is being treated successfully and his altered mental statuswhich was what brought him to the hospital has resolved Review of Systems Review of Systems Review of systems: 11 point review of system essentially unremarkable. [facility] Medical History Hypotension Hypokalemia Encephalopathy Carotid stenosis, right CTA: 90% right ICA - 02/2024 Alcohol dependence Atrial fibrillation Pulmonary sarcoidosis Hypertension History of cardioversion Abdominal pain Rectal bleeding Cardiac sarcoidosis Bullous emphysema History of aspergilloma Benign prostatic hyperplasia with lower urinary tract symptoms Acoustic neuroma Chronic HFrEF (heart failure with reduced ejection fraction) Lumbar spondylosis Gastroesophageal reflux disease with esophagitis without hemorrhage Diverticulosis Personal history of colonic polyps Chronic respiratory failure with hypoxia Nonischemic cardiomyopathy Echo: LVEF 45-50%, normal RV size/function, mild aortic root dilatation 4.0 cm - 02/2024 Hyponatremia Surgical History H/O colonoscopy (~10/2021) repeat 5 years History of arthroscopic knee surgery Family History Brother Heart disease Legacy FamHx Relation: Brother(s) Father Cancer Legacy FamHx Problem: Diagnosed with Cancer Mother Heart disease Myocardial infarction Diabetes Social History Smoking Status: Never smoker Substance Use Type: None Substance Abuse Comment: quit in February 2024 Social History Comments: Son and son's significant other Meds Medications and Allergies Allergies No Known Allergies Allergy (Verified 07/03/24 18:33) Home Medications sacubitril 24 mg-valsartan 26 mg tablet (Entresto) 1 tab PO BID 05/11/18 [History Confirmed 07/03/24] albuterol sulfate 2.5 mg/3 mL (0.083 %) solution for nebulization 2.5 mg inhalation QID 09/08/23 [History Confirmed 07/03/24] finasteride 5 mg tablet 5 mg PO DAILY 09/08/23 [History Confirmed 07/03/24] fluticasone propionate 50 mcg/actuation nasal spray,suspension 1 spray intranasal DAILY 09/08/23 [History Confirmed 07/03/24] latanoprost 0.005 % eye drops 1 drp ophthalmic (eye) DAILY 10/12/23 [History Confirmed 07/03/24] Oxygen 10/23/23 [History Confirmed 07/03/24] albuterol sulfate 90 mcg/actuation aerosol inhaler See Rx Instructions .Route .COMPLEX #18 grams 10/23/23 [Rx Confirmed 07/03/24] fluticasone fur. 200 mcg-umeclid 62.5 mcg-vilant 25 mcg inhalat.powder (Trelegy Ellipta) 1 inh inhalation DAILY #180 ea 10/23/23 [Rx Confirmed 07/03/24] ipratropium 0.5 mg-albuterol 3 mg (2.5 mg base)/3 mL nebulization soln 3 ml inhalation QID 30 days #360 mL 01/30/24 [Rx Confirmed 07/03/24] rivaroxaban 20 mg tablet (Xarelto) 20 mg PO DAILY.WITH.BKFAST 30 days #30 tabs 02/04/24 [Rx Confirmed 07/03/24] pantoprazole 40 mg tablet,delayed release See Rx Instructions .Route .COMPLEX #90 tabs 02/18/24 [Rx Confirmed 07/03/24] multivitamin with minerals 1 cap PO DAILY #90 caps 03/19/24 [Rx Confirmed 07/03/24] atorvastatin 40 mg tablet 40 mg PO QPM 30 days #30 tabs 03/20/24 [Rx Confirmed 07/03/24] dofetilide 250 mcg capsule 250 mcg PO BID 30 days #60 caps 03/20/24 [Rx Confirmed 07/03/24] tamsulosin 0.4 mg capsule 0.4 mg PO BID 30 days #60 caps 03/25/24 [Rx Confirmed 07/03/24] potassium chloride 10 mEq tablet,extended release (Klor-Con) 10 meq PO DAILY 30 days #30 tabs 03/27/24 [Rx Confirmed 07/03/24] valsartan 40 mg tablet 20 mg (1/2 x 40 mg) PO DAILY 30 days #15 tabs 05/17/24 [Rx Confirmed 07/03/24] furosemide 20 mg tablet 20 mg PO BID 06/03/24 [History Confirmed 07/03/24] magnesium oxide 400 mg (241.3 mg magnesium) tablet 400 mg PO DAILY 06/03/24 [History Confirmed 07/03/24] metoprolol succinate 25 mg tablet,extended release 24 hr 25 mg PO DAILY 06/03/24[History Confirmed 07/03/24] Exam Physical Exam Vital Signs: Temp Pulse Resp BP Pulse Ox O2 Del Method O2 Flow Rate 98.4 F 88 20 122/69 98 Room Air 2 07/05/24 12:00 07/05/24 16:20 07/05/24 16:20 07/05/24 12:00 07/05/24 12:00 07/05/24 12:00 07/04/24 15:22 Const General: cooperative, comfortable and no acute [...] cyanosis or edema Results - Cardiology Labs 07/05/24 08:17 07/04/24 07:32 Lab results: CBC 07/05/24 Range/Units 08:17 RBC 2.99 L (3.90-5.60) x10E6/uL Hgb 8.4 L (13.0-17.0) g/dL Hct 24.8 L (38.8-50.0) % Plt Count 277 (150-450) x10E3/uL Intake and Output 07/05/24 07/05/24 07/05/24 07:59 15:59 23:59 Intake Total 150 / 630 480 / 630 Output Total 250 / 550 300 / 550 Balance -100 / 80 180 / 80 Intake: Oral 150 / 630 480 / 630 Output: Urine 300 / 300 Urine Amount (Catheter) 250 / 250 Urethral ([place]) 250 / 250 Other: Weight 64.9 kg Date of Last Bowel Movement 07/05/24 Patient Weight 07/05/24 23:59 Weight 64.9 kg Lab 07/03/24 20:05 APTT 41.2 H A&P - Cardiology (1) Abnormal QT interval present on electrocardiogram: Assessment/Problem Details: Currently on dofetilide 250 mcg twice daily with no significant electrolyte imbalance or interfering medications. Plan: Dofetilide has been on hold since admission, QTc interval has dropped to just under 500 ms. If ECG tomorrow morning is reasonable with a QTc below 470 ms will resume dofetilide at a dose of 125 mcg twice daily and continue to monitor the patient for the next couple of days. Daily EKG need to be done Code(s): R94.31 - Abnormal electrocardiogram [ECG] [EKG] (2) Acute UTI: Assessment/Problem Details: Improved on medical therapy Plan: Continue antibiotics Code(s): N39.0 - Urinary tract infection, site not specified (3) Altered mental status: Assessment/Problem Details: Due to UTI, resolved Plan: Continue to monitor Code(s): R41.82 - Altered mental status, unspecified (4) Pulmonary sarcoidosis: Assessment/Problem Details: Inactive presently Plan: Followed by PCP Code(s): D86.0 - Sarcoidosis of lung Plan 1?continue to hold dofetilide until QTc interval is in safe range with daily EKGs 2?continue other home medications Documented By: Shannon Gonzalez MD, [facility] 5 1647 Signed By: <Electronically signed by [facility] Shannon Gonzalez> 07/05/24 1658 [facility] Work Phone: 1(353) 579-468102-21-2025 Progress note Author Ambrose Hsieh [facility] Note Date/Time July 05, 2024 3:42pm [facility] [address] [place] [address] Hospitalist Progress Note Signed Patient: Mary Mcadams MR#: [id number] : 1955 Acct:[id number] Age/Sex: 68 / M Adm Date: 5 Loc: 3T Room: [address] [place] [address] Type: ADM IN Attending Dr: Ambrose Hsieh MD Copies to: ~ Date of Service: 07/05/2024 Subjective Subjective Narrative: Continues to feel well overall, denies any nausea or vomiting. Updated family at bedside, son, regarding plan for discharge to SNF. Exam Physical Exam Vital Signs: Temp Pulse Resp BP Pulse Ox O2 Del Method O2 Flow Rate 98.9 F 98 20 109/66 94 L Room Air 2 07/05/24 09:17 07/05/24 09:17 07/05/24 09:17 07/05/24 09:17 07/05/24 09:17 07/05/24 09:17 07/04/24 15:22 Narrative: General: cooperative and comfortable Orientation: alert, awake and oriented x3 Head: normal to inspection Neck: normal visual inspection Cardio: no JVD, regular rate, regular rhythm Chest palpation & inspection: normal inspection of the chest Resp Effort & Inspection: normal respiratory effort Abd: soft, non-tender, non-distended, sal[place] catheter in place Extremities: Warm well perfused, no edema Objective Lab Results 07/05/24 08:17 07/04/24 07:32 Microbiology Results Microbiology 07/04/24 00:50 Urine - Straight Cath Urine Culture - Preliminary Meds Allergies and Active Meds Allergies No Known Allergies Allergy (Verified 07/03/24 18:33) Active Meds: Active Medications Generic Name Dose Route Start Last Admin Trade Name Freq PRN Reason Stop Dose Admin Acetaminophen 1,000 mg 07/03/24 23:14 07/05/24 01:19 Acetaminophen 500 Mg Tablet PO 07/03/25 23:13 1,000 mg Q6HR PRN Administration Pain Scale 1 - 3 or fever Albuterol 2 puff 07/04/24 00:00 Albuterol Hfa 60 Puff/8 Gram Inhaler INHALATION 07/04/25 00:00 Q6HR PRN PRN SHORTNESS OF BREATH Albuterol/Ipratropium 3 ml 07/04/24 08:00 07/05/24 07:35 Ipratropium/Albuterol 0.5-3 Mg 3 Ml Ampul.Neb INHALATION 07/04/25 07:59 3 ml QID.RESP ALEX Administration Atorvastatin Calcium 40 mg 07/04/24 21:00 07/04/24 22:20 Atorvastatin 40 Mg Tablet PO 07/04/25 20:59 40 mg QPM ALEX Administration Budesonide/Formoterol Fumarate 2 puff 07/04/24 09:00 07/05/24 07:35 Budesonide/Formoterol 160-4.5 Mcg 60 Puff/6 Gm Hfa.Aer.Ad INHALATION 07/04/25 08:59 2 puff BID ALXE Administration Finasteride 5 mg 07/04/24 09:00 07/05/24 09:20 Finasteride 5 Mg Tablet PO 07/04/25 08:59 5 mg DAILY ALEX Administration Fluticasone Propionate 1 spray 07/04/24 09:00 07/05/24 09:20 Fluticasone Propionate [place] 120 [place]/16 Gm Bottle INTRANASAL 07/04/25 08:59 1 spray DAILY ALEX Administration Ceftriaxone Sodium 1 gm in 50 mls @ 100 mls/hr 07/04/24 23:00 07/04/24 22:23 Rocephin IV 100 mls/hr Q24H ALEX Administration Latanoprost 1 drops 07/04/24 22:00 07/04/24 22:21 Latanoprost 0.005% Op Soln 50 Drops/2.5 Ml Bottle EYE-BOTH 07/04/25 21:59 1drops HS ALEX Administration Magnesium Oxide 400 mg 07/04/24 09:00 07/05/24 09:20 Magnesium Oxide 400 Mg Tablet PO 07/04/25 08:59 400 mg DAILY ALEX Administration Melatonin 5 mg 07/03/24 23:14 Melatonin 5 Mg Tablet PO 07/03/25 23:13 QHS PRN Insomnia Metoprolol Succinate 25 mg 07/04/24 09:00 07/05/24 09:21 Metoprolol Succinate 25 Mg Tab.Er.24h PO 07/04/25 08:59 25 mg DAILY ALEX Administration Ondansetron HCl 4 mg 07/03/24 23:14 07/04/24 19:48 Ondansetron Odt 4 Mg Tab.Rapdis PO 07/03/25 23:13 4 mg Q6HR PRN Administration Nausea And Vomiting Oxycodone HCl 5 mg 07/03/24 23:14 Oxycodone Ir 5 Mg Tablet PO Q6HR PRN Pain Scale 4 - 7 Pantoprazole Sodium 40 mg 07/04/24 07:30 07/05/24 09:19 Pantoprazole 40 Mg Tablet.Dr PO 07/04/25 07:29 40 mg DAILY.AC.BKFAST ALEX Administration Potassium Chloride 10 meq 07/04/24 09:00 07/05/24 09:21 Potassium Chloride Er 10 Meq Tablet.Er PO 07/04/25 08:59 10 meq DAILY ALEX Administration Rivaroxaban 20 mg 07/04/24 08:00 07/05/24 09:19 Rivaroxaban 20 Mg Tablet PO 07/04/25 07:59 20 mg DAILY.WITH.BKFAST ALEX Administration Sodium Chloride 0 ml 07/03/24 18:33 07/03/24 20:46 Sodium Chloride 0.9 % 10 Ml Syringe IV-PUSH 07/03/25 18:32 10 ml PRN PRN Administration Flush Sodium Chloride 0 ml 07/04/24 06:00 07/05/24 05:13 Sodium Chloride 0.9 % 10 Ml Syringe IV-PUSH 07/04/25 05:59 10 ml QSHIFT ALEX Administration Tamsulosin HCl 0.4 mg 07/04/24 09:00 07/05/24 09:21 Tamsulosin 0.4 Mg Cap.Er.24h PO 07/04/25 08:59 0.4 mg BID ALEX Administration A&P - Hospitalist Assessment/Plan (1) Weakness: (2) Fall: (3) Compression fracture of body of thoracic vertebra: (4) Altered mental status: (5) UTI (urinary tract infection): Plan Weakness/Debility Fall- mechanical fall from ground height Compression fracture to T7 - Fall precautions - Up with assist - Reports decreased appetite and fluid intake lately and diarrhea - continue IV hydration with LR @75 cc/hr Altered mental status- could be due to urine retention- has not self cathed for about a month, ran out of supplies and felt he was not retaining urine UTI - Currently alert and oriented -Prelim urine cultures resulted group B strep greater than 100,000 colony- forming units - Continue ceftriaxone - continue [place]inas catheter, void trial prior to discharge A-fib - on dofetilide daily held at present with prolonged QTc at 567, improved to 497at present - In addition does have lateral T wave inversions - cardiology consulted to determine plan for dofetilide therapy Hematoma/infectious process to left gluteal soft tissues- measures 2.5cm - suspected hematoma given fall, no hgb drop ok to continue anticoagulation Chronic conditions A-fib- continue rivaroxaban, hold dofetilide as above. BPH- finasteride, tamsulosin Sarcoidosis, chronic hypoxic respiratory failure on home oxygen- continue oxygen, nebulizers, inhalers DVT PPx?rivaroxaban Diet order?regular CODE STATUS?full code Disposition - PT/OT recommending SNF, patient and family agreeable. Documented By: Ambrose Hsieh MD 07/05/24 1043 Signed By: <Electronically signed by Ambrose Hsieh MD> 07/05/24 3071 [facility] Work Phone: 1(414) 434-491102-21-2025 Consult [place] [id number] Cardiology Consult Note Signed Patient: Mary Mcadams MR#: [id number] : 1955 Acct:[id number] Age/Sex: 68 / M Adm Date: 5 Loc: 3T Room: 9N6176-3 Type: ADM IN Attending Dr: Ambrose Hsieh MD Copies to: Adam Del Valle,DO Shannon Gonzalez MD, [facility] Ambrose Hsieh MD~ Cardiology HPI History of Present Illness Consult Date: 07/05/24 Reason for Consult: Abnormal ECG, prolonged QT interval HPI: Mr. Mcadams is a 68 year old male who is being seen at request of the hospitalist for abnormal EKG. Patient is on dofetilide 250 mcg twice daily for paroxysmal atrial fibrillation he was last seen in my office in May 2024. The patient has no underlying organic heart disease. His nuclear stresstest June 08 was normal. Previous echocardiogram revealed LV systolic dysfunctionwhich apparently has normalized. Ejection fraction measured 57% by nuclear stress test May 2024. The patient isadmitted for UTI and incidentally was found to have prolonged QT interval up to 574 ms. There were d iffuse repolarization abnormalities noted as well. Tikosyn was discontinued since admission and hisQTc interval today is down just under 500 ms. In the meantimehe remained in sinus rhythm and his cardiac status has been stable. He has other medical problems include pulmonary sarcoidosis, severe right internal carotid artery stenosis diagnosed in February 2024 with recommendation by surgeryto manage medically. He is asymptomatic. He does have previous history of alcohol abuse which ended last year. Will be doing daily EKG and once he is safe as far as QTc interval is concerned the dose will beresumed at 125 mcg twice daily. Meanwhile the patient is resting comfortably and has no complaints. His UTI is being treated successfully and his altered mental statuswhich was what brought him to the hospital has resolved Review of Systems Review of Systems Review of systems: 11 point review of system essentially unremarkable. [facility] Medical History Hypotension Hypokalemia Encephalopathy Carotid stenosis, right CTA: 90% right ICA - 02/2024 Alcohol dependence Atrial fibrillation Pulmonary sarcoidosis Hypertension History of cardioversion Abdominal pain Rectal bleeding Cardiac sarcoidosis Bullous emphysema History of aspergilloma Benign prostatic hyperplasia with lower urinary tract symptoms Acoustic neuroma Chronic HFrEF (heart failure with reduced ejection fraction) Lumbar spondylosis Gastroesophageal reflux disease with esophagitis without hemorrhage Diverticulosis Personal history of colonic polyps Chronic respiratory failure with hypoxia Nonischemic cardiomyopathy Echo: LVEF 45-50%, normal RV size/function, mild aortic root dilatation 4.0 cm - 02/2024 Hyponatremia Surgical History H/O colonoscopy (~10/2021) repeat 5 years History of arthroscopic knee surgery Family History Brother Heart disease Legacy FamHx Relation: Brother(s) Father Cancer Legacy FamHx Problem: Diagnosed with Cancer Mother Heart disease Myocardial infarction Diabetes Social History Smoking Status: Never smoker Substance Use Type: None Substance Abuse Comment: quit in February 2024 Social History Comments: Son and son's significant other Meds Medications and Allergies Allergies No Known Allergies Allergy (Verified 07/03/24 18:33) Home Medications sacubitril 24 mg-valsartan 26 mg tablet (Entresto) 1 tab PO BID 05/11/18 [History Confirmed 07/03/24] albuterol sulfate 2.5 mg/3 mL (0.083 %) solution for nebulization 2.5 mg inhalation QID 09/08/23 [History Confirmed 07/03/24] finasteride 5 mg tablet 5 mg PO DAILY 09/08/23 [History Confirmed 07/03/24] fluticasone propionate 50 mcg/actuation nasal spray,suspension 1 spray intranasal DAILY 09/08/23 [History Confirmed 07/03/24] latanoprost 0.005 % eye drops 1 drp ophthalmic (eye) DAILY 10/12/23 [History Confirmed 07/03/24] Oxygen 10/23/23 [History Confirmed 07/03/24] albuterol sulfate 90 mcg/actuation aerosol inhaler See Rx Instructions .Route .COMPLEX #18 grams 10/23/23 [Rx Confirmed 07/03/24] fluticasone fur. 200 mcg-umeclid 62.5 mcg-vilant 25 mcg inhalat.powder (Trelegy Ellipta) 1 inh inhalation DAILY #180 ea 10/23/23 [Rx Confirmed 07/03/24] ipratropium 0.5 mg-albuterol 3 mg (2.5 mg base)/3 mL nebulization soln 3 ml inhalation QID 30 days #360 mL 01/30/24 [Rx Confirmed 07/03/24] rivaroxaban 20 mg tablet (Xarelto) 20 mg PO DAILY.WITH.BKFAST 30 days #30 tabs 02/04/24 [Rx Confirmed 07/03/24] pantoprazole 40 mg tablet,delayed release See Rx Instructions .Route .COMPLEX #90 tabs 02/18/24 [RxConfirmed 07/03/24] multivitamin with minerals 1 cap PO DAILY #90 caps 03/19/24 [Rx Confirmed 07/03/24] atorvastatin 40 mg tablet 40 mg PO QPM 30 days #30 tabs 03/20/24 [Rx Confirmed 07/03/24] dofetilide 250 mcg capsule 250 mcg PO BID 30 days #60 caps 03/20/24 [Rx Confirmed 07/03/24] tamsulosin 0.4 mg capsule 0.4 mg PO BID 30 days #60 caps 03/25/24 [Rx Confirmed 07/03/24] potassium chloride 10 mEq tablet,extended release (Klor-Con) 10 meq PO DAILY 30 days #30 tabs 03/27/24 [Rx Confirmed 07/03/24] valsartan 40 mg tablet 20 mg (1/2 x 40 mg) PO DAILY 30 days #15 tabs 05/17/24 [Rx Confirmed 07/03/24] furosemide 20 mg tablet 20 mg PO BID 06/03/24 [History Confirmed 07/03/24] magnesium oxide 400 mg (241.3 mg magnesium) tablet 400 mg PO DAILY 06/03/24 [History Confirmed 07/03/24] metoprolol succinate 25 mg tablet,extended release 24 hr 25 mg PO DAILY 06/03/24[History Confirmed 07/03/24] Exam Physical Exam Vital Signs: Temp Pulse Resp BP Pulse Ox O2 Del Method O2 Flow Rate 98.4 F 88 20 122/69 98 Room Air 2 07/05/24 12:00 07/05/24 16:20 07/05/24 16:20 07/05/24 12:00 07/05/24 12:00 07/05/24 12:00 07/04/24 15:22 Const General: cooperative, comfortable and no acute [...] cyanosis or edema Results - Cardiology Labs 07/05/24 08:17 07/04/24 07:32 Lab results: CBC 07/05/24 Range/Units 08:17 RBC 2.99 L (3.90-5.60) x10E6/uL Hgb 8.4 L (13.0-17.0) g/dL Hct 24.8 L (38.8-50.0) % Plt Count 277 (150-450) x10E3/uL Intake and Output 07/05/24 07/05/24 07/05/24 07:59 15:59 23:59 Intake Total 150 / 630 480 / 630 Output Total 250 / 550 300 / 550 Balance -100 / 80 180 / 80 Intake: Oral 150 / 630 480 / 630 Output: Urine 300 / 300 Urine Amount (Catheter) 250 / 250 Urethral ([place]) 250 / 250 Other: Weight 64.9 kg Date of Last Bowel Movement 07/05/24 Patient Weight 07/05/24 23:59 Weight 64.9 kg Lab 07/03/24 20:05 APTT 41.2 H A&P - Cardiology (1) Abnormal QT interval present on electrocardiogram: Assessment/Problem Details: Currently on dofetilide 250 mcg twice daily with no significant electrolyte imbalance or interfering medications. Plan: Dofetilide has been on hold since admission, QTc interval has dropped to just under 500 ms. If ECG tomorrow morning is reasonable with a QTc below 470 ms will resume dofetilide at a dose of 125 mcg twice daily and continue to monitor the patient for the next couple of days. Daily EKG need to be done Code(s): R94.31 - Abnormal electrocardiogram [ECG] [EKG] (2) Acute UTI: Assessment/Problem Details: Improved on medical therapy Plan: Continue antibiotics Code(s): N39.0 - Urinary tract infection, site not specified (3) Altered mental status: Assessment/Problem Details: Due to UTI, resolved Plan: Continue to monitor Code(s): R41.82 - Altered mental status, unspecified (4) Pulmonary sarcoidosis: Assessment/Problem Details: Inactive presently Plan: Followed by PCP Code(s): D86.0 - Sarcoidosis of lung Plan 1?continue to hold dofetilide until QTc interval is in safe range with daily EKGs 2?continue other home medications Documented By: Shannon Gonzalez MD, [facility] 5 1647 Signed By: 07/05/24 1656 [facility]02-21-20[place] [address] Hospitalist Progress Note Signed Patient: Mary Mcadams MR#: [id number] : 1955 Acct:[id number] Age/Sex: 68 / M Adm Date: 5 Loc: 3T Room: [address] [place] [address] Type: ADM IN Attending Dr: Ambrose Hsieh MD Copies to: ~ Date of Service: 07/05/2024 Subjective Subjective Narrative: Continues to feel well overall, denies any nausea or vomiting. Updated family at bedside, son, regarding plan for discharge to SNF. Exam Physical Exam Vital Signs: Temp Pulse Resp BP Pulse Ox O2 Del Method O2 Flow Rate 98.9 F 98 20 109/66 94 L Room Air 2 07/05/24 09:17 07/05/24 09:17 07/05/24 09:17 07/05/24 09:17 07/05/24 09:17 07/05/24 09:17 07/04/24 15:22 Narrative: General: cooperative and comfortable Orientation: alert, awake and oriented x3 Head: normal to inspection Neck: normal visual inspection Cardio: no JVD, regular rate, regular rhythm Chest palpation & inspection: normal inspection of the chest Resp Effort & Inspection: normal respiratory effort Abd: soft, non-tender, non-distended, [place] catheter in place Extremities: Warm well perfused, no edema Objective Lab Results 07/05/24 08:17 07/04/24 07:32 Microbiology Results Microbiology 07/04/24 00:50 Urine - Straight Cath Urine Culture - Preliminary Meds Allergies and Active Meds Allergies No Known Allergies Allergy (Verified 07/03/24 18:33) Active Meds: Active Medications Generic Name Dose Route Start Last Admin Trade Name Angela PRN Reason Stop Dose Admin Acetaminophen 1,000 mg 07/03/24 23:14 07/05/24 01:19 Acetaminophen 500 Mg Tablet PO 07/03/25 23:13 1,000 mg Q6HR PRN Administration Pain Scale 1 - 3 or fever Albuterol 2 puff 07/04/24 00:00 Albuterol Hfa 60 Puff/8 Gram Inhaler INHALATION 07/04/25 00:00 Q6HR PRN PRN SHORTNESS OF BREATH Albuterol/Ipratropium 3 ml 07/04/24 08:00 07/05/24 07:35 Ipratropium/Albuterol 0.5-3 Mg 3 Ml Ampul.Neb INHALATION 07/04/25 07:59 3 ml QID.RESP ALEX Administration Atorvastatin Calcium 40 mg 07/04/24 21:00 07/04/24 22:20 Atorvastatin 40 Mg Tablet PO 07/04/25 20:59 40 mg QPM ALEX Administration Budesonide/Formoterol Fumarate 2 puff 07/04/24 09:00 07/05/24 07:35 Budesonide/Formoterol 160-4.5 Mcg 60 Puff/6 Gm Hfa.Aer.Ad INHALATION 07/04/25 08:59 2 puff BID ALEX Administration Finasteride 5 mg 07/04/24 09:00 07/05/24 09:20 Finasteride 5 Mg Tablet PO 07/04/25 08:59 5 mg DAILY ALEX Administration Fluticasone Propionate 1 spray 07/04/24 09:00 07/05/24 09:20 Fluticasone Propionate [place] 120 [place]/16 Gm Bottle INTRANASAL 07/04/25 08:59 1 spray DAILY ALEX Administration Ceftriaxone Sodium 1 gm in 50 mls @ 100 mls/hr 07/04/24 23:00 07/04/24 22:23 Rocephin IV 100 mls/hr Q24H ALEX Administration Latanoprost 1 drops 07/04/24 22:00 07/04/24 22:21 Latanoprost 0.005% Op Soln 50 Drops/2.5 Ml Bottle EYE-BOTH 07/04/25 21:59 1drops HS ALEX Administration Magnesium Oxide 400 mg 07/04/24 09:00 07/05/24 09:20 Magnesium Oxide 400 Mg Tablet PO 07/04/25 08:59 400 mg DAILY ALEX Administration Melatonin 5 mg 07/03/24 23:14 Melatonin 5 Mg Tablet PO 07/03/25 23:13 QHS PRN Insomnia Metoprolol Succinate 25 mg 07/04/24 09:00 07/05/24 09:21 Metoprolol Succinate 25 Mg Tab.Er.24h PO 07/04/25 08:59 25 mg DAILY ALEX Administration Ondansetron HCl 4 mg 07/03/24 23:14 07/04/24 19:48 Ondansetron Odt 4 Mg Tab.Rapdis PO 07/03/25 23:13 4 mg Q6HR PRN Administration Nausea And Vomiting Oxycodone HCl 5 mg 07/03/24 23:14 Oxycodone Ir 5 Mg Tablet PO Q6HR PRN Pain Scale 4 - 7 Pantoprazole Sodium 40 mg 07/04/24 07:30 07/05/24 09:19 Pantoprazole 40 Mg Tablet.Dr PO 07/04/25 07:29 40 mg DAILY.AC.BKFAST ALEX Administration Potassium Chloride 10 meq 07/04/24 09:00 07/05/24 09:21 Potassium Chloride Er 10 Meq Tablet.Er PO 07/04/25 08:59 10 meq DAILY ALEX Administration Rivaroxaban 20 mg 07/04/24 08:00 07/05/24 09:19 Rivaroxaban 20 Mg Tablet PO 07/04/25 07:59 20 mg DAILY.WITH.BKFAST ALEX Administration Sodium Chloride 0 ml 07/03/24 18:33 07/03/24 20:46 Sodium Chloride 0.9 % 10 Ml Syringe IV-PUSH 07/03/25 18:32 10 ml PRN PRN Administration Flush Sodium Chloride 0 ml 07/04/24 06:00 07/05/24 05:13 Sodium Chloride 0.9 % 10 Ml Syringe IV-PUSH 07/04/25 05:59 10 ml QSHIFT ALEX Administration Tamsulosin HCl 0.4 mg 07/04/24 09:00 07/05/24 09:21 Tamsulosin 0.4 Mg Cap.Er.24h PO 07/04/25 08:59 0.4 mg BID ALEX Administration A&P - Hospitalist Assessment/Plan (1) Weakness: (2) Fall: (3) Compression fracture of body of thoracic vertebra: (4) Altered mental status: (5) UTI (urinary tract infection): Plan Weakness/Debility Fall- mechanical fall from ground height Compression fracture to T7 - Fall precautions - Up with assist - Reports decreased appetite and fluid intake lately and diarrhea - continue IV hydration with LR @75 cc/hr Altered mental status- could be due to urine retention- has not self cathed for about a month, ran out of supplies and felt he was not retaining urine UTI - Currently alert and oriented -Prelim urine cultures resulted group B strep greater than 100,000 colony- forming units - Continue ceftriaxone - continue salinas catheter, void trial prior to discharge A-fib - on dofetilide daily held at present with prolonged QTc at 567, improved to 497at present - In addition does have lateral T wave inversions - cardiology consulted to determine plan for dofetilide therapy Hematoma/infectious process to left gluteal soft tissues- measures 2.5cm - suspected hematoma given fall, no hgb drop ok to continue anticoagulation Chronic conditions A-fib- continue rivaroxaban, hold dofetilide as above. BPH- finasteride, tamsulosin Sarcoidosis, chronic hypoxic respiratory failure on home oxygen- continue oxygen, nebulizers, inhalers DVT PPx?rivaroxaban Diet order?regular CODE STATUS?full code Disposition - PT/OT recommending SNF, patient and family agreeable. Documented By: Ambrose Hsieh MD 07/05/24 1043 Signed By: 07/05/24 1542 [facility]02-20-2025 Progress note Author Ambrose Hsieh [facility] Note Date/Time July 04, 2024 3:43pm [facility] [address] [place] [address] Hospitalist Progress Note Signed Patient: Mary Mcadams MR#: [id number] : 1955 Acct:[id number] Age/Sex: 68 / M Adm Date: 5 Loc: 3T Room: [address] [place] [address] Type: ADM IN Attending Dr: Ambrose Hsieh MD Copies to: ~ Date of Service: 07/04/2024 Subjective Subjective Narrative: Admitted overnight after presentation with weakness, falls, and altered mental status. Alert and oriented at present, denies any chest pain or SOB. Exam Physical Exam Vital Signs: Temp Pulse Resp BP Pulse Ox O2 Del Method O2 Flow Rate 98.3 F 84 20 146/84 H 100 Room Air 2 07/04/24 07:41 07/04/24 08:30 07/04/24 08:30 07/04/24 07:41 07/04/24 07:41 07/04/24 07:42 07/04/24 01:45 Narrative: General: cooperative and comfortable Orientation: alert, awake and oriented x3 Head: normal to inspection Neck: normal visual inspection Cardio: no JVD, regular rate, regular rhythm Chest palpation & inspection: normal inspection of the chest Resp Effort & Inspection: normal respiratory effort Abd: soft, non-tender, non-distended, salinas catheter in place Extremities: Warm well perfused, no edema Objective Lab Results 07/04/24 07:32 07/04/24 07:32 Microbiology Results Microbiology 07/03/24 20:25 Nasopharyngeal SARS-CoV-2, Influenza & RSV (PCR) - Final Meds Allergies and Active Meds Allergies No Known Allergies Allergy (Verified 07/03/24 18:33) Active Meds: Active Medications Generic Name Dose Route Start Last Admin Trade Name Freq PRN Reason Stop Dose Admin Acetaminophen 1,000 mg 07/03/24 23:14 07/04/24 09:21 Acetaminophen 500 Mg Tablet PO 07/03/25 23:13 1,000 mg Q6HR PRN Administration Pain Scale 1 - 3 or fever Albuterol 2 puff 07/04/24 00:00 Albuterol Hfa 60 Puff/8 Gram Inhaler INHALATION 07/04/25 00:00 Q6HR PRN PRN SHORTNESS OF BREATH Albuterol/Ipratropium 3 ml 07/04/24 08:00 07/04/24 08:48 Ipratropium/Albuterol 0.5-3 Mg 3 Ml Ampul.Neb INHALATION 07/04/25 07:59 3 ml QID.RESP ALEX Administration Atorvastatin Calcium 40 mg 07/04/24 21:00 Atorvastatin 40 Mg Tablet PO 07/04/25 20:59 QPM ALEX Budesonide/Formoterol Fumarate 2 puff 07/04/24 09:00 07/04/24 08:49 Budesonide/Formoterol 160-4.5 Mcg 60 Puff/6 Gm Hfa.Aer.Ad INHALATION 07/04/25 08:59 2 puff BID ALEX Administration Dofetilide 250 mcg 07/04/24 09:00 Dofetilide 250 Mcg Capsule PO 07/04/25 08:59 BID ALEX Finasteride 5 mg 07/04/24 09:00 07/04/24 09:57 Finasteride 5 Mg Tablet PO 07/04/25 08:59 5 mg DAILY ALEX Administration Fluticasone Propionate 1 spray 07/04/24 09:00 07/04/24 09:28 Fluticasone Propionate Fairbank 120 Fairbank/16 Gm Bottle INTRANASAL 07/04/25 08:59 Not Given DAILY ALEX Lactated Ringer's 1,000 mls @ 75 mls/hr 07/03/24 23:15 07/03/24 23:54 Lactated Ringers IV 07/04/24 12:34 75 mls/hr .[id number] ALEX Administration Ceftriaxone Sodium 1 gm in 50 mls @ 100 mls/hr 07/04/24 23:00 Rocephin IV Q24H ALEX Latanoprost 1 drops 07/04/24 22:00 Latanoprost 0.005% Op Soln 50 Drops/2.5 Ml Bottle EYE-BOTH 07/04/25 21:59 HS ALEX Magnesium Oxide 400 mg 07/04/24 09:00 07/04/24 09:25 Magnesium Oxide 400 Mg Tablet PO 07/04/25 08:59 400 mg DAILY ALEX Administration Melatonin 5 mg 07/03/24 23:14 Melatonin 5 Mg Tablet PO 07/03/25 23:13 QHS PRN Insomnia Metoprolol Succinate 25 mg 07/04/24 09:00 07/04/24 09:24 Metoprolol Succinate 25 Mg Tab.Er.24h PO 07/04/25 08:59 25 mg DAILY ALEX Administration Ondansetron HCl 4 mg 07/03/24 23:14 Ondansetron Odt 4 Mg Tab.Rapdis PO 07/03/25 23:13 Q6HR PRN Nausea And Vomiting Oxycodone HCl 5 mg 07/03/24 23:14 Oxycodone Ir 5 Mg Tablet PO Q6HR PRN Pain Scale 4 - 7 Pantoprazole Sodium 40 mg 07/04/24 07:30 07/04/24 06:56 Pantoprazole 40 Mg Tablet. PO 07/04/25 07:29 40 mg DAILY.AC.BKFAST ALEX Administration Potassium Chloride 10 meq 07/04/24 09:00 07/04/24 09:25 Potassium Chloride Er 10 Meq Tablet.Er PO 07/04/25 08:59 10 meq DAILY ALEX Administration Rivaroxaban 20 mg 07/04/24 08:00 07/04/24 08:31 Rivaroxaban 20 Mg Tablet PO 07/04/25 07:59 20 mg DAILY.WITH.BKFAST ALEX Administration Sodium Chloride 0 ml 07/03/24 18:33 07/03/24 20:46 Sodium Chloride 0.9 % 10 Ml Syringe IV-PUSH 07/03/25 18:32 10 ml PRN PRN Administration Flush Sodium Chloride 0 ml 07/04/24 06:00 07/04/24 06:55 Sodium Chloride 0.9 % 10 Ml Syringe IV-PUSH 07/04/25 05:59 Not Given QSHIFT ALEX Tamsulosin HCl 0.4 mg 07/04/24 09:00 07/04/24 09:24 Tamsulosin 0.4 Mg Cap.Er.24h PO 07/04/25 08:59 0.4 mg BID ALEX Administration A&P - Hospitalist Assessment/Plan (1) Weakness: (2) Fall: (3) Compression fracture of body of thoracic vertebra: (4) Altered mental status: (5) UTI (urinary tract infection): Plan Weakness/Debility Fall- mechanical fall from ground height Compression fracture to T7 - Consult PT/OT - Fall precautions - Up with assist - Reports decreased appetite and fluid intake lately and diarrhea - continue IV hydration with LR @75 cc/hr - CBC, BMP, Mag in am Altered mental status- could be due to urine retention- has not self cathed for about a month, ran out of supplies and felt he was not retaining urine UTI - Currently alert and oriented - Continue ceftriaxone - continue salinas catheter - Follow urine culture A-fib - on dofetilide daily held at present with prolonged QTc at 567 - In addition does have lateral T wave inversions, will consult cardiology for both Hematoma/infectious process to left gluteal soft tissues- measures 2.5cm Chronic conditions A-fib- continue rivaroxaban, hold dofetilide as above. BPH- finasteride, tamsulosin Sarcoidosis, chronic hypoxic respiratory failure on home oxygen- continue oxygen, nebulizers, inhalers DVT PPx?rivaroxaban Diet order?regular CODE STATUS?full code Disposition - PT/OT recommending SNF, patient appears agreeable Documented By: Ambrose Hsieh MD 07/04/24 1015 Signed By: <Electronically signed by Ambrose Hsieh MD> 07/04/24 1543 [facility] Work Phone: 1(268) 956-164102-20-2025 [place] [id number] Hospitalist Progress Note Signed Patient: Mary Mcadams MR#: [id number] : 1955 Acct:[id number] Age/Sex: 68 / M Adm Date: 5 Loc: 3T Room: [address] [place] [address] Type: ADM IN Attending Dr: Ambrose Hsieh MD Copies to: ~ Date of Service: 07/04/2024 Subjective Subjective Narrative: Admitted overnight after presentation with weakness, falls, and altered mental status. Alert and oriented at present, denies any chest pain or SOB. Exam Physical Exam Vital Signs: Temp Pulse Resp BP Pulse Ox O2 Del Method O2 Flow Rate 98.3 F 84 20 146/84 H 100 Room Air 2 07/04/24 07:41 07/04/24 08:30 07/04/24 08:30 07/04/24 07:41 07/04/24 07:41 07/04/24 07:42 07/04/24 01:45 Narrative: General: cooperative and comfortable Orientation: alert, awake and oriented x3 Head: normal to inspection Neck: normal visual inspection Cardio: no JVD, regular rate, regular rhythm Chest palpation & inspection: normal inspection of the chest Resp Effort & Inspection: normal respiratory effort Abd: soft, non-tender, non-distended, salinas catheter in place Extremities: Warm well perfused, no edema Objective Lab Results 07/04/24 07:32 07/04/24 07:32 Microbiology Results Microbiology 07/03/24 20:25 Nasopharyngeal SARS-CoV-2, Influenza & RSV (PCR) - Final Meds Allergies and Active Meds Allergies No Known Allergies Allergy (Verified 07/03/24 18:33) Active Meds: Active Medications Generic Name Dose Route Start Last Admin Trade Name Freq PRN Reason Stop Dose Admin Acetaminophen 1,000 mg 07/03/24 23:14 07/04/24 09:21 Acetaminophen 500 Mg Tablet PO 07/03/25 23:13 1,000 mg Q6HR PRN Administration Pain Scale 1 - 3 or fever Albuterol 2 puff 07/04/24 00:00 Albuterol Hfa 60 Puff/8 Gram Inhaler INHALATION 07/04/25 00:00 Q6HR PRN PRN SHORTNESS OF BREATH Albuterol/Ipratropium 3 ml 07/04/24 08:00 07/04/24 08:48 Ipratropium/Albuterol 0.5-3 Mg 3 Ml Ampul.Neb INHALATION 07/04/25 07:59 3 ml QID.RESP ALEX Administration Atorvastatin Calcium 40 mg 07/04/24 21:00 Atorvastatin 40 Mg Tablet PO 07/04/25 20:59 QPM ALEX Budesonide/Formoterol Fumarate 2 puff 07/04/24 09:00 07/04/24 08:49 Budesonide/Formoterol 160-4.5 Mcg 60 Puff/6 Gm Hfa.Aer.Ad INHALATION 07/04/25 08:59 2 puff BID ALEX Administration Dofetilide 250 mcg 07/04/24 09:00 Dofetilide 250 Mcg Capsule PO 07/04/25 08:59 BID ALEX Finasteride 5 mg 07/04/24 09:00 07/04/24 09:57 Finasteride 5 Mg Tablet PO 07/04/25 08:59 5 mg DAILY ALEX Administration Fluticasone Propionate 1 spray 07/04/24 09:00 07/04/24 09:28 Fluticasone Propionate Fairbank 120 Fairbank/16 Gm Bottle INTRANASAL 07/04/25 08:59 Not Given DAILY ALEX Lactated Ringer's 1,000 mls @ 75 mls/hr 07/03/24 23:15 07/03/24 23:54 Lactated Ringers IV 07/04/24 12:34 75 mls/hr .[id number] ALEX Administration Ceftriaxone Sodium 1 gm in 50 mls @ 100 mls/hr 07/04/24 23:00 Rocephin IV Q24H ALEX Latanoprost 1 drops 07/04/24 22:00 Latanoprost 0.005% Op Soln 50 Drops/2.5 Ml Bottle EYE-BOTH 07/04/25 21:59 HS ALEX Magnesium Oxide 400 mg 07/04/24 09:00 07/04/24 09:25 Magnesium Oxide 400 Mg Tablet PO 07/04/25 08:59 400 mg DAILY ALEX Administration Melatonin 5 mg 07/03/24 23:14 Melatonin 5 Mg Tablet PO 07/03/25 23:13 QHS PRN Insomnia Metoprolol Succinate 25 mg 07/04/24 09:00 07/04/24 09:24 Metoprolol Succinate 25 Mg Tab.Er.24h PO 07/04/25 08:59 25 mg DAILY ALEX Administration Ondansetron HCl 4 mg 07/03/24 23:14 Ondansetron Odt 4 Mg Tab.Rapdis PO 07/03/25 23:13 Q6HR PRN Nausea And Vomiting Oxycodone HCl 5 mg 07/03/24 23:14 Oxycodone Ir 5 Mg Tablet PO Q6HR PRN Pain Scale 4 - 7 Pantoprazole Sodium 40 mg 07/04/24 07:30 07/04/24 06:56 Pantoprazole 40 Mg Tablet.Dr PO 07/04/25 07:29 40 mg DAILY.AC.BKFAST ALEX Administration Potassium Chloride 10 meq 07/04/24 09:00 07/04/24 09:25 Potassium Chloride Er 10 Meq Tablet.Er PO 07/04/25 08:59 10 meq DAILY ALEX Administration Rivaroxaban 20 mg 07/04/24 08:00 07/04/24 08:31 Rivaroxaban 20 Mg Tablet PO 07/04/25 07:59 20 mg DAILY.WITH.BKFAST ALEX Administration Sodium Chloride 0 ml 07/03/24 18:33 07/03/24 20:46 Sodium Chloride 0.9 % 10 Ml Syringe IV-PUSH 07/03/25 18:32 10 ml PRN PRN Administration Flush Sodium Chloride 0 ml 07/04/24 06:00 07/04/24 06:55 Sodium Chloride 0.9 % 10 Ml Syringe IV-PUSH 07/04/25 05:59 Not Given QSHIFT ALEX Tamsulosin HCl 0.4 mg 07/04/24 09:00 07/04/24 09:24 Tamsulosin 0.4 Mg Cap.Er.24h PO 07/04/25 08:59 0.4 mg BID ALEX Administration A&P - Hospitalist Assessment/Plan (1) Weakness: (2) Fall: (3) Compression fracture of body of thoracic vertebra: (4) Altered mental status: (5) UTI (urinary tract infection): Plan Weakness/Debility Fall- mechanical fall from ground height Compression fracture to T7 - Consult PT/OT - Fall precautions - Up with assist - Reports decreased appetite and fluid intake lately and diarrhea - continue IV hydration with LR @75 cc/hr - CBC, BMP, Mag in am Altered mental status- could be due to urine retention- has not self cathed for about a month, ran out of supplies and felt he was not retaining urine UTI - Currently alert and oriented - Continue ceftriaxone - continue salinas catheter - Follow urine culture A-fib - on dofetilide daily held at present with prolonged QTc at 567 - In addition does have lateral T wave inversions, will consult cardiology for both Hematoma/infectious process to left gluteal soft tissues- measures 2.5cm Chronic conditions A-fib- continue rivaroxaban, hold dofetilide as above. BPH- finasteride, tamsulosin Sarcoidosis, chronic hypoxic respiratory failure on home oxygen- continue oxygen, nebulizers, inhalers DVT PPx?rivaroxaban Diet order?regular CODE STATUS?full code Disposition - PT/OT recommending SNF, patient appears agreeable Documented By: Ambrose Hsieh MD 07/04/24 1015 Signed By: 07/04/24 1543 [facility]02-20-2025 History and physical note Author Maricruz Godoy [facility] Note Date/Time July 04, 2024 6:43am [facility] [address] [place] [address] Hospitalist H&P Signed Patient: Mary Mcadams MR#: [id number] : 1955 Acct:[id number] Age/Sex: 68 / M Adm Date: 5 Loc: 3T Room: [address] [place] [address] Type: ADM IN Attending Dr: Altaf Jones MD Copies to: MD Adam Carballo DO Paula G Smith, WRAP CHECKER~ HPI DATE OF EXAMINATION: 07/03/24 CHIEF COMPLAINT: weakness HISTORY OF PRESENT ILLNESS: Mr. Mcadams is a 68-year-old male with a PMH of sarcoidosis, A-fib, BPH, chronic systolic heart failure, chronic respiratory failure on home oxygen, nonischemic cardiomyopathy that presented to the emergency room tonight for weakness. Patient states that he has been feeling like crap lately, could hardly get up from the couch to go to the bathroom. He does state that about 3 days ago he slipped and fell in the bathroom hitting his right chest, denies hitting his head or loss of consciousness. States that home health stopped lastweek. He also had an issue with his medications, he ran out of a couple meds and his son usually fills his pillbox but he has been sick so he was unable to so he filled it on his own and may have screwed some of them up. He complains of a little bit more shortness of breath than usual, and diarrhea, states it is watery. Also reports no appetite. He states that he is losing weight, he believes 10 to 20 pounds, most of the weight has been the last couple weeks. Hedenies fever, chills, chest pain. He states that he is supposed to self caths twice a day but he has not been doing that because he has had no issues with urination. Chest x-ray shows chronic pleural?parenchymal opacities in lung bases with diffuse interstitial prominence bilaterally, calcified mediastinal and hilar lymph nodes redemonstrated bilaterally. CT of the head showed no acute intracranial pathology. CT of the abdomen and pelvis shows bladder wall thickening and enhancement along the right renal pelvis and right ureter, partial visualization of a suspected fluid collection in the left gluteal soft tissues posterior to the left femur which may represent hematoma and infectious process measuring approximately 2.5 cm in greatest axial dimension. CTA of the chest shows aneurysmal dilatation of the ascending thoracic aorta measuring 4.7 cm in greatest dimension?slightly more pronounced when compared to prior exam, no evidence of PE, extensive chronic findings suggesting sarcoidosis and possible previous asbestos exposure, compression deformity of T7 vertebral body new when compared to prior exam. Venous Doppler was negative for DVT or SVT. EKG is normal sinus rhythm, prolonged QTc of 549. CBC with an H&H of 10.3/30.7,otherwise unremarkable. VBG with pH 7.35, pCO2 40. CMP with sodium 134, ALP 124, otherwise unremarkable. TSH normal at 2.93. Magnesium 1.5. Salicylate levels less than 1.5, acetaminophen 0.1. Blood alcohol less than 10. Nasal swab was negative for COVID, influenza and RSV. Lidocaine patch was applied to the right anterior chest, medicated with 2 g of mag sulfate, 500 cc of saline, 1g of ceftriaxone. He will be admitted as inpatient to [facility] daily for pain Review of Systems Review of Systems Review of systems: A 10 point review of systems was obtained, negative unless noted in the HPI or below. [facility] Medical History Hypotension Hypokalemia Encephalopathy Carotid stenosis, right CTA: 90% right ICA - 02/2024 Alcohol dependence Atrial fibrillation Pulmonary sarcoidosis Hypertension History of cardioversion Abdominal pain Rectal bleeding Cardiac sarcoidosis Bullous emphysema History of aspergilloma Benign prostatic hyperplasia with lower urinary tract symptoms Acoustic neuroma Chronic HFrEF (heart failure with reduced ejection fraction) Lumbar spondylosis Gastroesophageal reflux disease with esophagitis without hemorrhage Diverticulosis Personal history of colonic polyps Chronic respiratory failure with hypoxia Nonischemic cardiomyopathy Echo: LVEF 45-50%, normal RV size/function, mild aortic root dilatation 4.0 cm - 02/2024 Hyponatremia Surgical History H/O colonoscopy (~10/2021) repeat 5 years History of arthroscopic knee surgery Family History Brother Heart disease Legacy FamHx Relation: Brother(s) Father Cancer Legacy FamHx Problem: Diagnosed with Cancer Mother Heart disease Myocardial infarction Diabetes Social History Household Members: family Housing/Living Situation Comments: grandchildren live with him Smoking Status: Never smoker Substance Use Type: Alcohol Substance Abuse Comment: quit in February 2024 Social History Comments: Son and son's significant other Meds Medications and Allergies Allergies No Known Allergies Allergy (Verified 07/03/24 18:33) Home Medications sacubitril 24 mg-valsartan 26 mg tablet (Entresto) 1 tab PO BID 05/11/18 [History Confirmed 07/03/24] albuterol sulfate 2.5 mg/3 mL (0.083 %) solution for nebulization 2.5 mg inhalation QID 09/08/23 [History Confirmed 07/03/24] finasteride 5 mg tablet 5 mg PO DAILY 09/08/23 [History Confirmed 07/03/24] fluticasone propionate 50 mcg/actuation nasal spray,suspension 1 spray intranasal DAILY 09/08/23 [History Confirmed 07/03/24] latanoprost 0.005 % eye drops 1 drp ophthalmic (eye) DAILY 10/12/23 [History Confirmed 07/03/24] Oxygen 10/23/23 [History Confirmed 07/03/24] albuterol sulfate 90 mcg/actuation aerosol inhaler See Rx Instructions .Route .COMPLEX #18 grams 10/23/23 [Rx Confirmed 07/03/24] fluticasone fur. 200 mcg-umeclid 62.5 mcg-vilant 25 mcg inhalat.powder (Trelegy Ellipta) 1 inh inhalation DAILY #180 ea 10/23/23 [Rx Confirmed 07/03/24] ipratropium 0.5 mg-albuterol 3 mg (2.5 mg base)/3 mL nebulization soln 3 ml inhalation QID 30 days #360 mL 01/30/24 [Rx Confirmed 07/03/24] rivaroxaban 20 mg tablet (Xarelto) 20 mg PO DAILY.WITH.BKFAST 30 days #30 tabs 02/04/24 [Rx Confirmed 07/03/24] pantoprazole 40 mg tablet,delayed release See Rx Instructions .Route .COMPLEX #90 tabs 02/18/24 [Rx Confirmed 07/03/24] multivitamin with minerals 1 cap PO DAILY #90 caps 03/19/24 [Rx Confirmed 07/03/24] atorvastatin 40 mg tablet 40 mg PO QPM 30 days #30 tabs 03/20/24 [Rx Confirmed 07/03/24] dofetilide 250 mcg capsule 250 mcg PO BID 30 days #60 caps 03/20/24 [Rx Confirmed 07/03/24] tamsulosin 0.4 mg capsule 0.4 mg PO BID 30 days #60 caps 03/25/24 [Rx Confirmed 07/03/24] potassium chloride 10 mEq tablet,extended release (Klor-Con) 10 meq PO DAILY 30 days #30 tabs 03/27/24 [Rx Confirmed 07/03/24] valsartan 40 mg tablet 20 mg (1/2 x 40 mg) PO DAILY 30 days #15 tabs 05/17/24 [Rx Confirmed 07/03/24] furosemide 20 mg tablet 20 mg PO BID 06/03/24 [History Confirmed 07/03/24] magnesium oxide 400 mg (241.3 mg magnesium) tablet 400 mg PO DAILY 06/03/24 [History Confirmed 07/03/24] metoprolol succinate 25 mg tablet,extended release 24 hr 25 mg PO DAILY 06/03/24[History Confirmed 07/03/24] Exam Physical Exam Vital Signs: Temp Pulse Resp BP Pulse Ox O2 Del Method O2 Flow Rate 97.7 F 94 18 139/86 97 Room Air 2 07/03/24 18:33 07/03/24 23:10 07/03/24 23:10 07/03/24 23:10 07/03/24 23:10 07/03/24 23:10 07/03/24 21:14 Narrative: CONST- Appears well -developed, frail, cachectic, bitemporal wasting HEAD - Normocephalic and atraumatic EENT-Sclera nonicteric, conjunctive are non-erythemic, moist oral mucosa, pharynx clear NECK-Supple, no cervical lymphadenopathy CARDIAC-normal rate, regular rhythm, S1 & S2. PULM-diminished, 2L NC, no accessory muscle use or cough noted ABD - Soft. Bowel sounds are normal. No distention. tenderness to palpation, noguarding, no rebound tenderness EXTREM-no edema BLE calves, nontender SKIN- W/D good turgor MS- MAEX4 spontaneously with equal with equal strength- generalized weakness NEURO- A&Ox3 speech clear and tongue midline, equal facial symmetry, no focal motor deficits PSYCH-Mood, affect, and behavior appropriate Results - Hospitalist H&P Lab Results Labs: Laboratory Last Values Corrected WBC 5.8 X10E3/uL (4.1-10.5) 07/03/24 19:45 Uncorrected WBC Count 5.8 x10E3/uL (4.1-10.5) 07/03/24 19:45 RBC 3.67 x10E6/uL (3.90-5.60) L 07/03/24 19:45 Hgb 10.3 g/dL (13.0-17.0) L 07/03/24 19:45 Hct 30.7 % (38.8-50.0) L 07/03/24 19:45 MCV 83.7 fl (83.5-101) 07/03/24 19:45 MCH 28.1 pg (27.5-35.2) 07/03/24 19:45 MCHC 33.6 g/dL (32.5-35.6) 07/03/24 19:45 RDW 16.2 % (12.0-14.8) H 07/03/24 19:45 Plt Count 327 x10E3/uL (150-450) 07/03/24:45 MPV 7.7 fl (6.6-10.1) 07/03/24 19:45 Neut % (Auto) 74.3 % (.) 07/03/24 19:45 Lymph % (Auto) 12.4 % (.) 07/03/24:45 Dickinson % (Auto) 9.9 % (.) 07/03/24 19:45 Eos % (Auto) 2.7 % (.) 07/03/24:45 Baso % (Auto) 0.7 % (.) 07/03/24:45 Nucleat RBC Rel Count 0.0 /100 WBC (0-0.5) 07/03/24:45 Neut # (Auto) 4.3 x10E3/uL (1.8-7.7) 07/03/24 19:45 Lymph # (Auto) 0.7 x10E3/uL (1.00-4.8) L 07/03/24 19:45 Dickinson # (Auto) 0.6 x10E3/uL (0.0-0.8) 07/03/24:45 Eos # (Auto) 0.2 x10E3/uL (0.0-0.45) 07/03/24:45 Baso # (Auto) 0.0 x10E3/uL (0.0-0.2) 07/03/24:45 Monocyte Dist Width 18.01 % (0.00-20.00) 07/03/24:45 APTT 41.2 Seconds (25.1-36.5) H 07/03/24 20:05 D-Dimer Quant (PE/DVT) 462 ng/mL (0-243) H 07/03/24 20:05 D-Dimer Quant (PE/DVT) Cancelled 07/03/24 20:05 Sample Site Venous 07/03/24 20:37 VBG pH 7.35 (7.32-7.43) 07/03/24 20:37 VBG pCO2 40.0 mmHg (38.0-50.0) 07/03/24 20:37 VBG HCO3 21.5 mmol/L (23.0-29.0) L 07/03/24 20:37 VBG Total CO2 22.8 mmol/L (24.0-29.0) L 07/03/24 20:37 VBG O2 Saturation 50.2 % (73.0-76.0) L* 07/03/24 20:37 VBG Base Excess -3.8 mmol/L (-3.0-3.0) L 07/03/24 20:37 O2 Delivery Device Nasal cannula 07/03/24 20:37 Liter Flow 2 07/03/24 20:37 FiO2 28% % 07/03/24 20:37 Critical Value 07/03/24 20:37 PHA Creatinine Clear 59.91 07/03/24 19:45 Sodium 134 mmol/L (136-145) L 07/03/24 19:45 Potassium 3.9 mmol/L (3.5-5.1) 07/03/24 19:45 Chloride 99 mmol/L (98-107) 07/03/24 19:45 Carbon Dioxide 24.4 mmol/L (21.0-31.0) 07/03/24 19:45 Anion Gap 14.5 mEq/L (6.0-15.0) 07/03/24 19:45 BUN 15 mg/dL (7-25) 07/03/24 19:45 Creatinine 1.12 mg/dL (0.70-1.30) 07/03/24 19:45 Est GFR (CKD-EPI) > 60.0 mL/Min 07/03/24 19:45 Glucose 107 mg/dL (70-100) H 07/03/24 19:45 Calcium 9.7 mg/dL (8.6-10.3) 07/03/24 19:45 Magnesium 1.5 mg/dL (1.9-2.7) L 07/03/24 19:45 Total Bilirubin 0.9 mg/dl (0.3-1.0) 07/03/24 19:45 AST 18 U/L (13-39) 07/03/24 19:45 ALT 10 U/L (7-52) 07/03/24 19:45 Alkaline Phosphatase 124 U/L (34-104) H 07/03/24 19:45 Troponin I High Sens 12 ng/L (0-20) 07/03/24 22:15 Total Protein 7.9 gm/dL (6.4-8.9) 07/03/24 19:45 Albumin 3.8 gm/dL (3.5-5.7) 07/03/24 19:45 Globulin 4.1 gm/dL 07/03/24 19:45 Albumin/Globulin Ratio 0.9 07/03/24 19:45 Free T4 1.31 ng/dL (0.61-1.12) H 07/03/24 19:45 TSH 3rd Generation 2.93 uIU/mL (0.45-5.33) 07/03/24 19:45 Salicylates < 1.5 mg/dL (15.0-30.0) L 07/03/24 19:45 Acetaminophen 0.1 ug/mL (10.0-30.0) L 07/03/24 19:45 Ethyl Alcohol < 10 mg/dL 07/03/24 19:45 % Ethyl Alcohol TNP 07/03/24 19:45 SARS-CoV-2 Rap RNA(RT-PCR) Negative (Negative) 07/03/24 20:25 Microbiology Results Micro: Microbiology - Results from entire visit 07/03/24 20:25 Nasopharyngeal SARS-CoV-2, Influenza & RSV (PCR) - Final ABG Interpretation ABG results: 07/03/24 20:37 VBG pH 7.35 VBG pCO2 40.0 VBG HCO3 21.5 L VBG Total CO2 22.8 L VBG O2 Saturation 50.2 L* VBG Base Excess -3.8 L Assessment & Plan Assessment/Plan (1) Weakness: (2) Fall: (3) Compression fracture of body of thoracic vertebra: (4) Altered mental status: (5) UTI (urinary tract infection): Plan Weakness/Debility Fall- mechanical fall from ground height Compression fracture to T7 - Consult PT/OT - Fall precautions - Up with assist - Reports decreased appetite and fluid intake lately and diarrhea, will hydrate with LR @ 75cc/hr X 1L, hold furosemide, monitor daily weight - Prealbumin, CBC, BMP, Mag in am Altered mental status- could be due to urine retention- has not self cathed for about a month, ran out of supplies and felt he was not retaining urine UTI - Currently alert and oriented - Continue ceftriaxone - Follow urine culture Hematoma/infectious process to left gluteal soft tissues- measures 2.5cm Chronic conditions A-fib- dofetilide, prolonged QTc, repeat EKG in am, rivaroxaban BPH- finasteride, tamsulosin Sarcoidosis, chronic hypoxic respiratory failure on home oxygen- continue oxygen, nebulizers, inhalers DVT PPx?rivaroxaban Diet order?regular CODE STATUS?full code IP vs OBS Justification Based on differential dx, clinical care plan, and risk of adverse events, if untreated, in my clinical judgement this patient requires an acute care setting as: INPATIENT because of an expectation of an over 2 midnight stay. Estimated length of stay (# of days): 3 Documented By: Maricruz Godoy APRN 07/03/24 2323 Signed By: <Electronically signed by CHARLEY Godoy> 07/04/24 0415 <Electronically signed by Altaf Jones MD> 07/04/24 0643 [facility] Work Phone: 1(611) 426-878902-20-2025 Radiology Diagnostic study [facility] [place] [address] [place] [address] Ultrasound Report Signed Patient: Mary Mcadams MR#: [id number] : 1955 Acct:[id number] Age/Sex: 68 / M ADM Date: 5 Loc: 3T Room: [address] [place] [address] Type: ADM IN Attending Dr: Ambrose Hsieh MD Ordering Provider: Susanne Motley MD Date of Service: 07/03/24 US/US venous duplex LE BI: r/o dvt, missed xarelto, int R leg swell Copies to: MD Ambrose Urias MD~ BILATERAL LOWER EXTREMITY VENOUS DUPLEX INDICATION: Bilateral lower extremity edema, pain and tenderness. PROCEDURE: Color-flow duplex scanning is used to interrogate the deep venous system of the right and left lower extremities. The common femoral vein, femoral vein and popliteal vein show good compressibility with normal proximal and distal augmentation. The calf veins are compressible. US/US venous duplex LE BI IMPRESSION: NO EVIDENCE FOR DEEP VEIN THROMBOSIS OR PROXIMAL SUPERFICIAL THROMBOPHLEBITIS INTHE RIGHT OR LEFT LOWER EXTREMITY. Impression dictated by: Baudilio Moura MD07/04/2024 8:38 AM Dictation Location: [place] [address] Tech: Melanie Garcia Transcribed By: JEANIE 07/04/24837 Dictated By: Baudilio Moura MD 07/04/24837 Signed By: 07/04/24837 [facility] Work Phone: 1(392) 928-820102-20-2025 [place] [address] Hospitalist Procedure Note Signed Patient: Mary Mcadams MR#: [id number] : 1955 Acct:[id number] Age/Sex: 68 / M Adm Date: 5 Loc: Room: [address] [place] [address] Type: ADM IN Attending Dr: Altaf Jones MD Copies to: MD Adam Carballo,DO Hospitalist Procedures Date/Provider PROCEDURE DATE: 07/04/24 PROCEDURE PERFORMED BY: Altaf Jones [facility] Procedure Indication: Urinary retention Procedure performed: Salinas catheter insertion Consent: received/signed Narrative: Nursing staff in ED was unable to pass Salinas catheter. Bladder ultrasound showed distention with urine and residue inside as well as echogenic material. Sterile precautions were applied. Urethra was anesthetized with lidocaine gel. I was able to inserta three-way Salinas catheter with some difficulty into the bladder. A total of 700 cc somewhat cloudyurine passed. There were no complications. Documented By: Altaf Jones MD 07/04/24 0652 Signed By: 07/04/24 0655 [facility]02-20-2025 History and physical [place] [id number] Hospitalist H&P Signed Patient: Mary Mcadams MR#: [id number] : 1955 Acct:[id number] Age/Sex: 68 / M Adm Date: 5 Loc: 3T Room: 1R3076-4 Type: ADM IN Attending Dr: Altaf Jones MD Copies to: MD Adam Carballo DO Paula G Smith, WRAP CHECKER~ HPI DATE OF EXAMINATION: 07/03/24 CHIEF COMPLAINT: weakness HISTORY OF PRESENT ILLNESS: Mr. Mcadams is a 68-year-old male with a PMH of sarcoidosis, A-fib, BPH, chronic systolic heart failure, chronic respiratory failure on home oxygen, nonischemic cardiomyopathy that presented to the emergency room tonight for weakness. Patient states that he has been feeling like crap lately, couldhardly get up from the couch to go to the bathroom. He does state that about 3 days ago he slipped and fell in the bathroom hitting his right chest, denies hitting his head or loss of consciousness. States that home health stopped lastweek. He also had an issue with his medications, he ran out of [employer] meds and his son usually fills his pillbox but he has been sick so he was unable to so he filled it on his own and may have screwed some of them up. He complains of a little bit more shortnessof breath than usual, and diarrhea, states it is watery. Also reports no appetite. He states that he is losing weight, he believes 10 to 20 pounds, most of the weight has been the last couple weeks. Hedenies fever, chills, chest pain. He states that he is supposed to self caths twice a day but he has not been doing that because he has had no issues with urination. Chest x-ray shows chronic pleural?parenchymal opacities in lung bases with diffuse interstitial prominence bilaterally, calcified mediastinal and hilar lymph nodes redemonstrated bilaterally. CT of the head showed no acute intracranial pathology. CT of the abdomen and pelvis shows bladder wall thick ening and enhancement along the right renal pelvis and right ureter, partial visualization of a suspected fluid collection in the left gluteal soft tissues posterior to the left femur which may represent hematoma and infectious process measuring approximately 2.5 cm in greatest axial dimension. CTAof the chest shows aneurysmal dilatation of the ascending thoracic aorta measuring 4.7 cm in greatest dimension?slightly more pronounced when compared to prior exam, no evidence of PE, extensive chronic findings suggesting sarcoidosis and possible previous asbestos exposure, compression deformity of T7 vertebral body new when compared to prior exam. Venous Doppler was negative for DVT or SVT. EKGis normal sinus rhythm, prolonged QTc of 549. CBC with an H&H of 10.3/30.7,otherwise unremarkable. VBG with pH 7.35, pCO2 40. CMP with sodium 134, ALP 124, otherwise unremarkable. TSH normal at 2.93. Magnesium 1.5. Salicylate levels less than 1.5, acetaminophen 0.1. Blood alcohol less than 10. Nasal swab was negative for COVID, influenza and RSV. Lidocaine patch was applied to the right anterior chest, medicated with 2 g of mag sulfate, 500 cc of saline, 1g of ceftriaxone. He will be admitted as inpatient to [facility] daily for pain Review of Systems Review of Systems Review of systems: A 10 point review of systems was obtained, negative unless noted in the HPI or below. [facility] Medical History Hypotension Hypokalemia Encephalopathy Carotid stenosis, right CTA: 90% right ICA - 02/2024 Alcohol dependence Atrial fibrillation Pulmonary sarcoidosis Hypertension History of cardioversion Abdominal pain Rectal bleeding Cardiac sarcoidosis Bullous emphysema History of aspergilloma Benign prostatic hyperplasia with lower urinary tract symptoms Acoustic neuroma Chronic HFrEF (heart failure with reduced ejection fraction) Lumbar spondylosis Gastroesophageal reflux disease with esophagitis without hemorrhage Diverticulosis Personal history of colonic polyps Chronic respiratory failure with hypoxia Nonischemic cardiomyopathy Echo: LVEF 45-50%, normal RV size/function, mild aortic root dilatation 4.0 cm - 02/2024 Hyponatremia Surgical History H/O colonoscopy (~10/2021) repeat 5 years History of arthroscopic knee surgery Family History Brother Heart disease Legacy FamHx Relation: Brother(s) Father Cancer Legacy FamHx Problem: Diagnosed with Cancer Mother Heart disease Myocardial infarction Diabetes Social History Household Members: family Housing/Living Situation Comments: grandchildren live with him Smoking Status: Never smoker Substance Use Type: Alcohol Substance Abuse Comment: quit in February 2024 Social History Comments: Son and son's significant other Meds Medications and Allergies Allergies No Known Allergies Allergy (Verified 07/03/24 18:33) Home Medications sacubitril 24 mg-valsartan 26 mg tablet (Entresto) 1 tab PO BID 05/11/18 [History Confirmed 07/03/24] albuterol sulfate 2.5 mg/3 mL (0.083 %) solution for nebulization 2.5 mg inhalation QID 09/08/23 [History Confirmed 07/03/24] finasteride 5 mg tablet 5 mg PO DAILY 09/08/23 [History Confirmed 07/03/24] fluticasone propionate 50 mcg/actuation nasal spray,suspension 1 spray intranasal DAILY 09/08/23 [History Confirmed 07/03/24] latanoprost 0.005 % eye drops 1 drp ophthalmic (eye) DAILY 10/12/23 [History Confirmed 07/03/24] Oxygen 10/23/23 [History Confirmed 07/03/24] albuterol sulfate 90 mcg/actuation aerosol inhaler See Rx Instructions .Route .COMPLEX #18 grams 10/23/23 [Rx Confirmed 07/03/24] fluticasone fur. 200 mcg-umeclid 62.5 mcg-vilant 25 mcg inhalat.powder (Trelegy Ellipta) 1 inh inhalation DAILY #180 ea 10/23/23 [Rx Confirmed 07/03/24] ipratropium 0.5 mg-albuterol 3 mg (2.5 mg base)/3 mL nebulization soln 3 ml inhalation QID 30 days #360 mL 01/30/24 [Rx Confirmed 07/03/24] rivaroxaban 20 mg tablet (Xarelto) 20 mg PO DAILY.WITH.BKFAST 30 days #30 tabs 02/04/24 [Rx Confirmed 07/03/24] pantoprazole 40 mg tablet,delayed release See Rx Instructions .Route .COMPLEX #90 tabs 02/18/24 [RxConfirmed 07/03/24] multivitamin with minerals 1 cap PO DAILY #90 caps 03/19/24 [Rx Confirmed 07/03/24] atorvastatin 40 mg tablet 40 mg PO QPM 30 days #30 tabs 03/20/24 [Rx Confirmed 07/03/24] dofetilide 250 mcg capsule 250 mcg PO BID 30 days #60 caps 03/20/24 [Rx Confirmed 07/03/24] tamsulosin 0.4 mg capsule 0.4 mg PO BID 30 days #60 caps 03/25/24 [Rx Confirmed 07/03/24] potassium chloride 10 mEq tablet,extended release (Klor-Con) 10 meq PO DAILY 30 days #30 tabs 03/27/24 [Rx Confirmed 07/03/24] valsartan 40 mg tablet 20 mg (1/2 x 40 mg) PO DAILY 30 days #15 tabs 05/17/24 [Rx Confirmed 07/03/24] furosemide 20 mg tablet 20 mg PO BID 06/03/24 [History Confirmed 07/03/24] magnesium oxide 400 mg (241.3 mg magnesium) tablet 400 mg PO DAILY 06/03/24 [History Confirmed 07/03/24] metoprolol succinate 25 mg tablet,extended release 24 hr 25 mg PO DAILY 06/03/24[History Confirmed 07/03/24] Exam Physical Exam Vital Signs: Temp Pulse Resp BP Pulse Ox O2 Del Method O2 Flow Rate 97.7 F 94 18 139/86 97 Room Air 2 07/03/24 18:33 07/03/24 23:10 07/03/24 23:10 07/03/24 23:10 07/03/24 23:10 07/03/24 23:10 07/03/24 21:14 Narrative: CONST- Appears well -developed, frail, cachectic, bitemporal wasting HEAD - Normocephalic and atraumatic EENT-Sclera nonicteric, conjunctive are non-erythemic, moist oral mucosa, pharynx clear NECK-Supple, no cervical lymphadenopathy CARDIAC-normal rate, regular rhythm, S1 & S2. PULM-diminished, 2L NC, no accessory muscle use or cough noted ABD - Soft. Bowel sounds are normal. No distention. tenderness to palpation, noguarding, no reboundtenderness EXTREM-no edema BLE calves, nontender SKIN- W/D good turgor MS- MAEX4 spontaneously with equal with equal strength- generalized weakness NEURO- A&Ox3 speech clear and tongue midline, equal facial symmetry, no focal motor deficits PSYCH-Mood, affect, and behavior appropriate Results - Hospitalist H&P Lab Results Labs: Laboratory Last Values Corrected WBC 5.8 X10E3/uL (4.1-10.5) 07/03/24 19:45 Uncorrected WBC Count 5.8 x10E3/uL (4.1-10.5) 07/03/24 19:45 RBC 3.67 x10E6/uL (3.90-5.60) L 07/03/24 19:45 Hgb 10.3 g/dL (13.0-17.0) L 07/03/24 19:45 Hct 30.7 % (38.8-50.0) L 07/03/24 19:45 MCV 83.7 fl (83.5-101) 07/03/24 19:45 MCH 28.1 pg (27.5-35.2) 07/03/24 19:45 MCHC 33.6 g/dL (32.5-35.6) 07/03/24:45 RDW 16.2 % (12.0-14.8) H 07/03/24 19:45 Plt Count 327 x10E3/uL (150-450) 07/03/24 19:45 MPV 7.7 fl (6.6-10.1) 07/03/24 19:45 Neut % (Auto) 74.3 % (.) 07/03/24 19:45 Lymph % (Auto) 12.4 % (.) 07/03/24 19:45 Dickinson % (Auto) 9.9 % (.) 07/03/24 19:45 Eos % (Auto) 2.7 % (.) 07/03/24 19:45 Baso % (Auto) 0.7 % (.) 07/03/24 19:45 Nucleat RBC Rel Count 0.0 /100 WBC (0-0.5) 07/03/24 19:45 Neut # (Auto) 4.3 x10E3/uL (1.8-7.7) 07/03/24 19:45 Lymph # (Auto) 0.7 x10E3/uL (1.00-4.8) L 07/03/24 19:45 Dickinson # (Auto) 0.6 x10E3/uL (0.0-0.8) 07/03/24 19:45 Eos # (Auto) 0.2 x10E3/uL (0.0-0.45) 07/03/24 19:45 Baso # (Auto) 0.0 x10E3/uL (0.0-0.2) 07/03/24 19:45 Monocyte Dist Width 18.01 % (0.00-20.00) 07/03/24 19:45 APTT 41.2 Seconds (25.1-36.5) H 07/03/24 20:05 D-Dimer Quant (PE/DVT) 462 ng/mL (0-243) H 07/03/24 20:05 D-Dimer Quant (PE/DVT) Cancelled 07/03/24 20:05 Sample Site Venous 07/03/24 20:37 VBG pH 7.35 (7.32-7.43) 07/03/24 20:37 VBG pCO2 40.0 mmHg (38.0-50.0) 07/03/24 20:37 VBG HCO3 21.5 mmol/L (23.0-29.0) L 07/03/24 20:37 VBG Total CO2 22.8 mmol/L (24.0-29.0) L 07/03/24 20:37 VBG O2 Saturation 50.2 % (73.0-76.0) L* 07/03/24 20:37 VBG Base Excess -3.8 mmol/L (-3.0-3.0) L 07/03/24 20:37 O2 Delivery Device Nasal cannula 07/03/24 20:37 Liter Flow 2 07/03/24 20:37 FiO2 28% % 07/03/24 20:37 Critical Value 07/03/24 20:37 PHA Creatinine Clear 59.91 07/03/24 19:45 Sodium 134 mmol/L (136-145) L 07/03/24 19:45 Potassium 3.9 mmol/L (3.5-5.1) 07/03/24 19:45 Chloride 99 mmol/L (98-107) 07/03/24 19:45 Carbon Dioxide 24.4 mmol/L (21.0-31.0) 07/03/24 19:45 Anion Gap 14.5 mEq/L (6.0-15.0) 07/03/24 19:45 BUN 15 mg/dL (7-25) 07/03/24 19:45 Creatinine 1.12 mg/dL (0.70-1.30) 07/03/24 19:45 Est GFR (CKD-EPI) > 60.0 mL/Min 07/03/24 19:45 Glucose 107 mg/dL (70-100) H 07/03/24 19:45 Calcium 9.7 mg/dL (8.6-10.3) 07/03/24 19:45 Magnesium 1.5 mg/dL (1.9-2.7) L 07/03/24 19:45 Total Bilirubin 0.9 mg/dl (0.3-1.0) 07/03/24 19:45 AST 18 U/L (13-39) 07/03/24 19:45 ALT 10 U/L (7-52) 07/03/24 19:45 Alkaline Phosphatase 124 U/L (34-104) H 07/03/24 19:45 Troponin I High Sens 12 ng/L (0-20) 07/03/24 22:15 Total Protein 7.9 gm/dL (6.4-8.9) 07/03/24 19:45 Albumin 3.8 gm/dL (3.5-5.7) 07/03/24 19:45 Globulin 4.1 gm/dL 07/03/24 19:45 Albumin/Globulin Ratio 0.9 07/03/24 19:45 Free T4 1.31 ng/dL (0.61-1.12) H 07/03/24 19:45 TSH 3rd Generation 2.93 uIU/mL (0.45-5.33) 07/03/24 19:45 Salicylates < 1.5 mg/dL (15.0-30.0) L 07/03/24 19:45 Acetaminophen 0.1 ug/mL (10.0-30.0) L 07/03/24 19:45 Ethyl Alcohol < 10 mg/dL 07/03/24 19:45 % Ethyl Alcohol TNP 07/03/24 19:45 SARS-CoV-2 Rap RNA(RT-PCR) Negative (Negative) 07/03/24 20:25 Microbiology Results Micro: Microbiology - Results from entire visit 07/03/24 20:25 Nasopharyngeal SARS-CoV-2, Influenza & RSV (PCR) - Final ABG Interpretation ABG results: 07/03/24 20:37 VBG pH 7.35 VBG pCO2 40.0 VBG HCO3 21.5 L VBG Total CO2 22.8 L VBG O2 Saturation 50.2 L* VBG Base Excess -3.8 L Assessment & Plan Assessment/Plan (1) Weakness: (2) Fall: (3) Compression fracture of body of thoracic vertebra: (4) Altered mental status: (5) UTI (urinary tract infection): Plan Weakness/Debility Fall- mechanical fall from ground height Compression fracture to T7 - Consult PT/OT - Fall precautions - Up with assist - Reports decreased appetite and fluid intake lately and diarrhea, will hydrate with LR @ 75cc/hr X1L, hold furosemide, monitor daily weight - Prealbumin, CBC, BMP, Mag in am Altered mental status- could be due to urine retention- has not self cathed for about a month, ran out of supplies and felt he was not retaining urine UTI - Currently alert and oriented - Continue ceftriaxone - Follow urine culture Hematoma/infectious process to left gluteal soft tissues- measures 2.5cm Chronic conditions A-fib- dofetilide, prolonged QTc, repeat EKG in am, rivaroxaban BPH- finasteride, tamsulosin Sarcoidosis, chronic hypoxic respiratory failure on home oxygen- continue oxygen, nebulizers, inhalers DVT PPx?rivaroxaban Diet order?regular CODE STATUS?full code IP vs OBS Justification Based on differential dx, clinical care plan, and risk of adverse events, if untreated, in my clinical judgement this patient requires an acute care setting as: INPATIENT because of an expectation ofan over 2 midnight stay. Estimated length of stay (# of days): 3 Documented By: Maricruz Godoy APRN 07/03/24 2323 Signed By: 07/04/24 0415 07/04/24 0643 [facility]02-20-2025 Evaluation note* Diagnosis Onset Date Resolution Status Admit Date Abnormal QT interval present on electrocardiogram resolved July 03, 2024 10:39pm Acute UTI resolved July 03, 2024 10:39pm Altered mental status resolved Feb ruary 2024 10:39pm Compression fracture of body of thoracic vertebra resolved July 03, 2024 10:39pm Fall resolved July 03, 2024 10:39pm Pulmonary sarcoidosis resolved Feb ruary 2024 10:39pm UTI (urinary tract infection) resolv ed July 03, 2024 10:39pm Weakness resolved July 03, 2024 10:39pm Bronchiectasis, uncomplicated acute July 15, 2024 2:55pm Cardiac sarcoidosis acute July 15, 2024 2:55pm History of aspergilloma acute M 2024 2:55pm Bullous emphysema resolved July 152024 2:55pm Chronic respiratory failure with hypoxia resolved July 15, 2024 2:55pm Pulmonary sarcoidosis resolved Jul 2:55pm Atrial fibrillation resolved September 02, 2024 2:26pm Chronic HFrEF (heart failure with reduced ejection fraction) resolved September 02, 2024 2:26pm Nonischemic cardiomyopathy resolved September 02, 2024 2:26pm Sarcoidosis of lung resolved September 02, 2024 2:26pm [facility] Work Phone: 1(528) 411-441502-19-2025 [facility] [place] [address] [place] [address] CT Scan Report Signed Patient: Mary Mcadams MR#: [id number] : 1955 Acct:[id number] Age/Sex: 68 / M ADM Date: 5 Loc: 3T Room: [address] [place] [address] Type: ADM IN Attending Dr: Altaf Jones MD Copies to: MD Susanne Carballo MD~ Ordering Provider: Susanne Motley MD Date of Service: 07/03/24 CT/CT angio chest PE protocol: r/o pe, elevated dimer CT angio chest PE protocol 07/03/2024 9:40 PM SIGN AND SYMPTOMS: Confusion, weakness, lower abdominal tenderness CONTRAST: 90 mL of intravenous Isovue-370 TECHNIQUE: Multidetector CT axial slices of the chest were obtained with IV contrast. Multiplanar and 3-D reformats were performed and viewed on a separate workstation and reviewed to further define anatomy and possible pathology. CT was performed with one or more of the following dose reduction techniques: Automated exposure control, adjustment of the mA and/or kV according to patient size, or use of iterative reconstruction technique. COMPARISON: 02/10/2019. FINDINGS: Lower neck: Thyroid gland within normal limits, no supraclavicle adenopathy. Vessels: Atherosclerotic changes are noted in the thoracic aorta and coronary arteries. There is mild aneurysmal dilatation of the ascending thoracic aorta measuring 4.7 cm in greatest dimension. This is slightly more prominent when compared to the prior exam. There is no evidence of pulmonary embolus. Mediastinum and Randi: Extensive calcified mediastinal and hilar lymph nodes are present suspicious for sarcoidosis. Heart: Normal size. No pericardial effusion. Airways: Within normal limits Lungs: Pleural based scarring is noted diffusely similar to the prior exam with bronchiectasis and cystic changes in the left upper lobe. Bronchiectasis extends towards the right upper lobe similar to the prior exam. Pleura: Calcified pleural plaques are redemonstrated possibly relating to prior asbestos exposure. Chest Wall: Within normal limits. Upper Abdomen: Chronic findings are noted within the upper abdomen and are better demonstrated on CT of the abdomen and pelvis from the same date. Please see separately dictated report. Bones: There is a compression deformity of the T7 vertebral body. This is new when compared to the prior exam. CT/CT angio chest PE protocol IMPRESSION: There is aneurysmal dilatation of the ascending thoracic aorta measuring 4.7 cm in greatest dimension. This is slightly more pronounced when compared to the prior exam. There is no evidence of pulmonary embolism. Extensive chronic findings are noted as above suggesting sarcoidosis and possible previous asbestosexposure. There is a compression deformity of the T7 vertebral body. This is new when compared to the prior exam but is of uncertain acuity. Impression dictated by: Juliocesar Varela M.D.07/03/2024 10:59 PM Dictation Location: [place] [address] Transcribed By: [facility] 07/03/242258 Dictated By: Juliocesar Varela II, MD 07/03/242252 Signed By: 07/03/242258 [facility] Work Phone: 1(134) 585-202402-19-2025 Radiology Diagnostic study [facility] [place] [address] [place] [address] CT Scan Report Signed Patient: Mary Mcadams MR#: [id number] : 1955 Acct:[id number] Age/Sex: 68 / M ADM Date: 5 Loc: ER Room: Type: PRE ER Attending Dr: Copies to: Susanne Motley MD~ Ordering Provider: Susanne Motley MD Date of Service: 07/03/24 CT/CT abdomen pelvis w con: lower abd tenderness CT abdomen pelvis w con 07/03/2024 8:23 PM SIGNS AND SYMPTOMS: Confusion, weakness, lower abdominal tenderness TECHNIQUE: Multidetector ct axial images of the abdomen and pelvis were obtainedwith IV contrast. Multiplanar reformats were performed and reviewed to further define anatomy and possible pathology. CT was performed with one or more of thefollowing dose reduction techniques: Automated exposure control, adjustment of the mA and/or kV according to patient size, or use of iterative reconstruction technique. COMPARISON: 03/13/2024 FINDINGS: Lower Chest: Atherosclerotic changes are noted in the thoracic aorta. There is interstitial prominence with chronic appearing airspace opacities in the lung bases. There is pleural thickening. Calcified pleural plaques are also noted suspicious for prior asbestos exposure. ABDOMEN: Liver: Within normal limits. Bile Ducts: Normal caliber. Gallbladder: No calcified gallstones. Normal caliber wall. Pancreas: Within normal limits. Spleen: Within normal limits. Adrenals: Within normal limits. Kidneys: There is renal cortical atrophy on the right similar to the prior exam. This is chronic innature. There are 2 mm nonobstructing stones at the inferior pole of the right renal collecting system. There is enhancement of theright renal pelvis. Pelvis: Reproductive Organs: No pelvic masses. Ureters: There is enhancement along the right ureter which is prominent in caliber distally. There is no evidence of obstructing stone or mass. Bladder: There is bladder wall thickening with mild bladder wall enhancement suspicious for cystitis. Bowel: Uncomplicated colonic diverticula are noted. There is a normal appendix in the right lower quadrant. Mesenteric Lymph Nodes: No enlarged mesenteric lymph nodes. Peritoneum: No ascites or free air, no fluid collection. Vessels: Atherosclerotic changes changes are noted in the abdominal aorta. Retroperitoneum: Within normal limits. Abdominal Wall: There is partial visualization of a suspected fluid collection in the left gluteal soft tissues posterior to the left femur. This may represent a hematoma or an infectious process. This measures approximately 2.5 cm in greatest axial dimension. Bones: Degenerative changes are noted in the lumbar spine. Degenerative changesare noted in the hips and sacroiliac joints. CT/CT abdomen pelvis w con IMPRESSION: There is bladder wall thickening and enhancement along with enhancement and thickening along the right renal pelvis and right ureter. This is presumably infectious in nature. There is partial visualization of a suspected fluid collection in the left gluteal soft tissues posterior to the left femur. This may represent a hematomaor an infectious process. This measures approximately 2.5 cm in greatest axial dimension. Additional chronic findings are noted as above. Impression dictated by: Juliocesar Varela M.D.07/03/2024 9:23 PM Dictation Location: [place] [address] Transcribed By: [facility] 07/03/242122 Dictated By: Juliocesar Varela II, MD 07/03/242108 Signed By: 07/03/242122 [facility] Work Phone: 1(186) 884-117002-19-2025 [facility]iology [facility] [place] [address] [place] [address] CT Scan Report Signed Patient: Mary Mcadams MR#: [id number] : 1955 Acct:[id number] Age/Sex: 68 / M ADM Date: 5 Loc: ER Room: Type: PRE ER Attending Dr: Copies to: Susanne Motley MD~ Ordering Provider: Susanne Motley MD Date of Service: 07/03/24 CT/CT head/brain wo con: confusion, on xarelto CT head/brain wo con 07/03/2024 8:06 PM SIGNS AND SYMPTOMS: Confusion, weakness, lower abdominal tenderness TECHNIQUE:Multi-detector CT axial slices of the brain were obtained without IV contrast. CT was performed with one or more of the following dose reduction techniques: Automated exposure control, adjustment of the mA and/or kV accordingto patient size, or use of iterative reconstruction technique. COMPARISON: 03/14/2024. FINDINGS: There is no shift of the midline structures, acute intracranial bleeding, mass effects, or evidence of acute ischemia. Age-related cortical atrophy is noted with periventricular white matter hypoattenuation. Atherosclerotic changes are noted in the intracranial segments of the internal carotid arteries. The ventricular system is normal in size. The brainstem and the cerebellum are unremarkable. The visualized intraorbital contents, the visualized paranasal sinuses, and the infratemporal soft tissues show no acute abnormality. There is a right-sided mastoid effusion. There is cerumenwithin the external auditory canals bilaterally. The osseous structures in the skull base and the calvarium show no abnormality. CT/CT head/brain wo con IMPRESSION: No acute intracranial pathology. Chronic age-related neurodegenerative changes are redemonstrated as above. Impression dictated by: Juliocesar Varela M.D.07/03/2024 9:09 PM Dictation Location: [place] [address] Transcribed By: JEANIE 07/03/242108 Dictated By: Juliocesar Varela II, MD 07/03/242103 Signed By: 07/03/242108 [facility] Work Phone: [phone]) 596-271301-10-2025 History of Present illness Narrative* Shannon Gonzalez MD - 05/24/2024 1:10 PM EST Subjective follow-up visit Patient is in the office for follow-up for the problems noted below. Since he was last seen in March he saw his PCP and was found to be hypotensive and Entresto was discontinued. He continued to have symptoms of extreme fatigue and lack of stamina. He does not have any indication of volume overload. He does have right ankle edema but the left ankle Is completely normal. He reports no palpitations orthopnea or PND. His weight is unchanged from previously. He has not had blood work since he was last seen. His EKG today revealed normal sinus rhythm with IVCD, QTc interval measured 493 ms. Assessment/recommendations: 1- persistent atrial fibrillation, currently in sinus rhythm on dofetilide, QTc interval in the upper normal range at 495 ms, will continue magnesium and dofetilide 2-left ventricular systolic dysfunction, ejection fraction 45%. Due to significant hypotension the Entresto was discontinued by PCP and today he remains hypotensive, will discontinue carvedilol to avoid vasodilatation and use metoprolol succinate 25 mg daily. The patient will be evaluated for underlying ischemic heart disease with Lexiscan MPI. Internal carotid artery stenosis 3-confirmed severe right internal carotid artery stenosis which is asymptomatic discovered by ultrasound February 2024. The patient was seen by vascular surgery and they recommended medical therapy. Continue antiplatelet therapy and statin, currently not a smoker. He is nondiabetic 4-pulmonary sarcoidosis currently in remission and no medical therapy with extensive scarring of his lungs based on his chest x-rays. He currently does not follow with pulmonary medicine, he is lifelong non-smoker 5-high risk medication with dofetilide and Xarelto will be monitored. 6-history of alcohol abuse, this has ended recently Review of Systems Respiratory: Positive for shortness of breath. All other systems reviewed and are negative. EKG done in office today Vitals: 05/24/24 1322 BP: (!) 90/48 BP Location: Left arm Patient Position: Sitting Pulse: 68 Weight: 70.9 kg (156 lb 3.2 oz) Height: 1.829 m (6') Objective Physical Exam Constitutional: Appearance: Normal appearance. HENT: Nose: Nose normal. Neck: Vascular: No carotid bruit. Cardiovascular: Rate and Rhythm: Normal rate. Pulses: Normal pulses. Heart sounds: Normal heart sounds. Pulmonary: Effort: Pulmonary effort is normal. Comments: Diminished breath sounds Abdominal: General: Bowel sounds are normal. Palpations: [...] every 4 hours if needed., Disp: ,Rfl: aspirin 81 mg EC tablet, Take 1 tablet (81 mg) by mouth once daily., Disp: , Rfl: atorvastatin (Lipitor) 40 mg tablet, 1 tablet (40 mg) once daily., Disp: , Rfl: baclofen (Lioresal) 10 mg tablet, Take 1 tablet (10 mg) by mouth 4 times a day as needed for musclespasms., Disp: , Rfl: dofetilide (Tikosyn) 250 mcg capsule, 1 capsule (250 mcg) every 12 hours., Disp: , Rfl: finasteride (Proscar) 5 mg tablet, Take 1 tablet (5 mg) by mouth once daily., Disp: , Rfl: fluticasone (Flonase) 50 mcg/actuation nasal spray, Administer 1 spray into each nostril once daily., Disp: , Rfl: fluticasone propion-salmeteroL (Advair Diskus) 500-50 mcg/dose diskus inhaler, Inhale 1 puff., Disp: , Rfl: lybprsjwabp-tbyonvksx-ztbtlrqx (TRELEGY-ELLIPTA) 200-62.5-25 mcg blister with device, Vbrccjwvxtp-Umeolkmxe-Bqwyqzae (Trelegy Ellipta) 200-62.5-25 mcg blister with device Active 1 INH INHALATION Daily October 22, 2023 11:00pm Rinse after use, Disp: , Rfl: ipratropium (Atrovent) 0.02 % nebulizer solution, INHALE 2.5ml via NEBULIZER FOUR TIMES DAILY, Disp: , Rfl: ipratropium-albuteroL (Duo-Neb) 0.5-2.5 mg/3 mL nebulizer solution, Inhale 3 mL every 6 hours if needed., Disp: , Rfl: latanoprost (Xalatan) 0.005 % ophthalmic solution, 1 drop once daily at bedtime., Disp: , Rfl: magnesium oxide (Mag-Ox) 400 mg (241.3 mg magnesium) tablet, Take 1 tablet (400 mg) by mouth once daily., Disp: 90 tablet, Rfl: 3 multivitamin (Multiple Vitamins) tablet, Take 1 tablet by mouth once daily., Disp: , Rfl: pantoprazole (ProtoNix) 40 mg EC tablet, 1 tablet (40 mg) early in the morning.., Disp: , Rfl: rivaroxaban (Xarelto) 20 mg tablet, Take 1 tablet (20 mg) by mouth once daily in the evening. Take with meals., Disp: 90 tablet, Rfl: 3 tamsulosin (Flomax) 0.4 mg 24 hr capsule, Take 1 capsule (0.4 mg) by mouth 2 times a day., Disp: , Rfl: furosemide (Lasix) 20 mg tablet, Take 1 tablet (20 mg) by mouth once daily as needed (if swelling occurs to the right leg)., Disp: 90 tablet, Rfl: 1 metoprolol succinate XL (Toprol-XL) 25 mg 24 hr tablet, Take 1 tablet (25 mg) by mouth once daily at bedtime. Do not crush or chew., Disp: 90 tablet, Rfl: 3 Assessment/Plan 1. Hypotension due to drugs 2. Non-ischemic cardiomyopathy (Multi) Follow Up In Cardiology Follow Up In Cardiology metoprolol succinate XL (Toprol-XL) 25 mg 24 hr tablet furosemide (Lasix) 20 mg tablet Nuclear Stress Test 3. Diastolic dysfunction metoprolol succinate XL (Toprol-XL) 25 mg 24 hr tablet Nuclear Stress Test 4. Fatigue, unspecified type Nuclear Stress Test 5. LV (left ventricular) mural thrombus Nuclear Stress Test 6. 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 (Multi) ECG 12 Lead metoprolol succinate XL (Toprol-XL) 25 mg 24 hr tablet Nuclear Stress Test 7. High risk medication use 8. Pulmonary sarcoidosis (Multi) 9. BMI 21.0-21.9, adult 10. Carotid stenosis, right Scribe Attestation By signing my name below, Javier Beverley RobertsonNiecy SOTO , Scribe attest that this documentation has been prepared under the direction and in the presence of Shannon Gonzalez MD. Provider Attestation - Scribe documentation All medical record entries made by the Scribe were at my direction and personally dictated by me. Ihave reviewed the chart and agree that the record accurately reflects my personal performance of the history, physical exam, discussion and plan. [facility] Work Phone: 1(341) 742-815801-10-2025 Instructions* Patient Instructions* Harriet Gibson LPN - 05/24/2024 1:10 PM EST Please bring all medicines, vitamins, and herbal supplements with you when you come to the office. Prescriptions will not be filled unless you are compliant with your follow up appointments or have a follow up appointment scheduled as per instruction of your physician. Refills should be requested at the time of your visit. documented in [facility] Work Phone: 1(345) 475-489612-18-2024 Evaluation note* Diagnosis Onset Date Resolution Status Admit Date Altered mental status acute Dec emb2023 10:49am Hypotension acute June 03, 2024 2:25pm Rectal bleeding acute May 162024 2:25pm Atrial fibrillation resolved 2024 2:25pm Chronic HFrEF (heart failure with reduced ejection fraction) resolved June 03 2:25pm Nonischemic cardiomyopathy resolved June 03, 2024 2:25pm Sarcoidosis of lung resolved 2024 2:25pm Altered mental status acute Feb [facility] 2024 10:39pm Compression fracture of body of thoracic vertebra acute July 032024 10:39pm Fall acute July 03, 2024 10:39pm Weakness acute July 03, 2024 10:39pm [facility] Work Phone: [phone] 614-826112-18-2024 Evaluation note* Diagnosis Onset Date Resolution Status Admit Date Altered mental status acute Apr 10:49am Hypotension acute June 03, 2024 2:25pm Rectal bleeding acute May 162024 2:25pm Atrial fibrillation resolved 2024 2:25pm Chronic HFrEF (heart failure with reduced ejection fraction) resolved June 03, 2024 2:25pm Nonischemic cardiomyopathy resolved June 03, 2024 2:25pm Sarcoidosis of lung resolved 2024 2:25pm Abnormal QT interval present on electrocardiogram acute July 03, 2024 10:39pm Acute UTI acute July 03, 2024 10:39pm Altered mental status acute Feb [facility] 2024 10:39pm Compression fracture of body of thoracic vertebra acute July 03, 2024 10:39pm Fall acute July 03, 2024 10:39pm Pulmonary sarcoidosis acute Feb [facility] 2024 10:39pm UTI (urinary tract infection) acute July 03, 2024 10:39pm Weakness acute July 03, 2024 10:39pm [facility] Work Phone: [phone] 250-478312-18-2024 Evaluation note* Diagnosis Onset Date Resolution Status Admit Date Altered mental status acute Dec emb2023 10:49am Hypotension acute June 03, 2024 2:25pm Rectal bleeding acute May 162024 2:25pm Atrial fibrillation resolved 2024 2:25pm Chronic HFrEF (heart failure with reduced ejection fraction) resolved June 03, 2024 2:25pm Nonischemic cardiomyopathy resolved June 03, 2024 2:25pm Sarcoidosis of lung resolved Janua 2024 2:25pm Abnormal QT interval present on electrocardiogram acute July 03, 2024 10:39pm Acute UTI acute July 03, 2024 10:39pm Altered mental status acute Feb ruary 2024 10:39pm Compression fracture of body of thoracic vertebra acute July 03, 2024 10:39pm Fall acute July 03, 2024 10:39pm Pulmonary sarcoidosis acute Feb ruary 2024 10:39pm UTI (urinary tract infection) acute July 03, 2024 10:39pm Weakness acute July 03, 2024 10:39pm Cardiac sarcoidosis acute July 15, 2024 2:55pm History of aspergilloma acute 2024 2:55pm Bullous emphysema resolved July 152024 2:55pm Chronic respiratory failure with hypoxia resolved July 15, 2024 2:55pm Pulmonary sarcoidosis resolved Jul 2:55pm [facility] Work Phone: 1(326) 627-819511-13-2024 History of Present illness Narrative* Shannon Gonzalez MD - 03/27/2024 3:10 PM EST Roni Mcadams is a 68 y.o. male Chief Complaint Follow-up HPI 68-year-old white male who I have seen twice in consultation at the hospital with a last consultation on 03/15/2024. He has history of persistent atrial fibrillation discovered this past summer. Initially with amiodarone and had successful cardioversion in February but came back with recurrent atrial fibrillation and had to be placed on dofetilide with successful nondenominational of sinus rhythm during his last admission in March 2024. He has history of alcohol abuse and pulmonary sarcoidosis alongwith mild left ventricular systolic dysfunction ejection fraction 45% based on last echocardiogram February 2024. The patient is anticoagulated and since discharge from the hospital he has not been drinking. He came with his son. Patient lives with his grandsons. He reports feeling tired but no palpitations orthopnea PND lower extremity edema and no chest pain or hemoptysis. EKG confirmed normal sinus rhythm his QTc interval measured 495 ms. Patient has had no myocardial ischemia workup. His lungs sounded clear, he has no volume overload and his rhythm is regular with no cardiac murmurs. Assessment/recommendations: 1- persistent atrial fibrillation, currently in sinus rhythm on dofetilide, QTc interval in the upper normal range at 495 ms, will add magnesium oxide 400 mg daily. Patient had cardioversion once fewmonths ago while on amiodarone which was successful but only briefly. 2-left ventricular systolic dysfunction, ejection fraction 45%. He is on Entresto and carvedilol. His blood pressure is soft therefore will not increase Entresto at this time. Hoping that he maintaining normal sinus rhythm mechanism might restore his ejection fraction. At 1 point in time we need toinvestigate for ischemic heart disease with Lexiscan MPI. Will repeat echocardiogram in a limited fashion in 4 months to reassess ejection fraction. We may have to increase Entresto. 3-confirmed severe right internal carotid artery stenosis which is asymptomatic discovered by ultrasound February 2024. The patient was seen by vascular surgery and they recommended medical therapy. Continue antiplatelet therapy and statin, currently not a smoker. He is nondiabetic 4-pulmonary sarcoidosis currently in remission and no medical therapy with extensive scarring of his lungs based on his chest x-rays. He currently does not follow with pulmonary medicine 5-high risk medication with dofetilide and Xarelto will be monitored. 6-history of alcohol abuse, he was encouraged to stay away from alcohol and that should be considered as a toxin to his heart. Review of Systems Constitutional: Positive for malaise/fatigue. Musculoskeletal: Positive for back pain. Neurological: Positive for dizziness. All other systems reviewed and are negative. Body aches Vitals: 03/27/24 1522 BP: 108/60 BP Location: Left arm Patient Position: Sitting Pulse: 71 Weight: 68.9 kg (152 lb) Height: 1.829 m (6') EKG done in office today Objective Physical Exam Constitutional: Appearance: Normal appearance. [...] every 4 hours if needed., Disp: ,Rfl: atorvastatin (Lipitor) 40 mg tablet, 1 tablet (40 mg) once daily., Disp: , Rfl: carvedilol (Coreg) 6.25 mg tablet, Take 3 tablets (18.75 mg) by mouth every 12 hours., Disp: , Rfl: dofetilide (Tikosyn) 250 mcg capsule, 1 capsule (250 mcg) every 12 hours., Disp: , Rfl: finasteride (Proscar) 5 mg tablet, Take 1 tablet (5 mg) by mouth once daily., Disp: , Rfl: fluticasone (Flonase) 50 mcg/actuation nasal spray, Administer 1 spray into each nostril once daily., Disp: , Rfl: fluticasone propion-salmeteroL (Advair Diskus) 500-50 mcg/dose diskus inhaler, Inhale 1 puff., Disp: , Rfl: yrituqbyito-rqjxorjbo-umdkkaox (TRELEGY-ELLIPTA) 200-62.5-25 mcg blister with device, Giikwwdaesn-Dhlogxzpn-Doqaqosk (Trelegy Ellipta) 200-62.5-25 mcg blister with device Active 1 INH INHALATION Daily 180 October 22, 2023 11:00pm Rinse after use, Disp: , Rfl: furosemide (Lasix) 20 mg tablet, 1 tablet (20 mg) 2 times daily (morning and late afternoon)., Disp: , Rfl: ipratropium (Atrovent) 0.02 % nebulizer solution, INHALE 2.5ml via NEBULIZER FOUR TIMES DAILY, Disp: , Rfl: ipratropium-albuteroL (Duo-Neb) 0.5-2.5 mg/3 mL nebulizer solution, Inhale 3 mL every 6 hours if needed., Disp: , Rfl: latanoprost (Xalatan) 0.005 % ophthalmic solution, 1 drop once daily at bedtime., Disp: , Rfl: multivitamin (Multiple Vitamins) tablet, Take 1 tablet by mouth once daily., Disp: , Rfl: pantoprazole (ProtoNix) 40 mg EC tablet, 1 tablet (40 mg) early in the morning.., Disp: , Rfl: rivaroxaban (Xarelto) 20 mg tablet, Take 1 tablet (20 mg) by mouth once daily in the evening. Take with meals., Disp: 90 tablet, Rfl: 3 sacubitriL-valsartan (Entresto) 24-26 mg tablet, Take 1 tablet by mouth 2 times a day., Disp: 180 tablet, Rfl: 3 tamsulosin (Flomax) 0.4 mg 24 hr capsule, Take 1 capsule (0.4 mg) by mouth 2 times a day., Disp: , Rfl: Assessment/Plan 1. Diastolic dysfunction 2. Non-ischemic cardiomyopathy (Multi) 3. Atrial fibrillation, unspecified type (Multi) 4. LV (left ventricular) mural thrombus 5. Chronic obstructive pulmonary disease, unspecified COPD type (Multi) 6. BMI 20.0-20.9, adult Scribe Attestation By signing my name below, I, Kassidy Ness RN , Scribe attest that this documentation has been prepared under the direction and in the presence of Shannon Gonzalez MD. Provider Attestation - Scribe documentation All medical record entries made by the Scribe were at my direction and personally dictated by me. Ihave reviewed the chart and agree that the record accurately reflects my personal performance of the history, physical exam, discussion and plan. documented in this [facility] Work Phone: 1(490) 377-723711-13-2024 Instructions* Patient Instructions* Kassidy Waggoner RN - 03/27/2024 3:10 PM EST Please bring all medicines, vitamins, and herbal supplements with you when you come to the office. Prescriptions will not be filled unless you are compliant with your follow up appointments or have a follow up appointment scheduled as per instruction of your physician. Refills should be requested at the time of your visit. Echo in 4 months Labs documented in this [facility] Work Phone: 1(899) 975-816811-06-2024 Progress note Author Altaf Jones [facility] March 20, 2024 1:34pm Note Date/Time March 20, 2024 1 :34pm [facility] [address] [place] [address] Hospitalist Progress Note Signed Patient: Mary Mcadams MR#: [id number] : 1955 Acct:[id number] Age/Sex: 68 / M Adm Date: 4 Loc: Room: [address] [place] [address] Type: ADM IN Attending Dr: Altaf Jones MD Copies to: ~ Date of Service: 03/20/2024 Subjective Subjective Narrative: Patient is doing well. He has no complaints. Remains in sinus rhythm. Heart regular Lungs clear Abdomen soft Assessment and plan Patient is medically stable to be discharged home as planned. 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 Daily alcohol use History of acoustic neuroma GERD BPH Exam Physical Exam Vital Signs: Temp Pulse Resp BP Pulse Ox O2 Del Method O2 Flow Rate 97.7 F 71 18 87/54 L 100 Nasal Cannula 2 03/20/24 12:00 03/20/24 12:00 03/20/24 12:00 03/20/24 12:05 03/20/24 12:00 03/20/24 12:00 03/20/24 12:00 Objective Lab Results 03/14/24 04:52 03/18/24 04:51 Meds Allergies and Active Meds Allergies No Known Allergies Allergy (Verified 03/08/24 13:25) Active Meds: Active Medications Generic Name Dose Route Start Last Admin Trade Name Freq PRN Reason Stop Dose Admin Acetaminophen 1,000 mg 03/13/24 21:06 03/14/24 21:42 Acetaminophen 500 Mg Tablet PO 03/13/25 21:05 1,000 mg Q6HR PRN Administration Pain Scale 1 - 3 or fever Al Hydrox/Mg Hydrox/Simethicone 30 ml 03/13/24 21:06 Mag Hydrox/Al Hydrox/Simeth 30 Ml Udc PO 03/13/25 21:05 Q4H PRN Indigestion Albuterol/Ipratropium 3 ml 03/14/24 10:30 03/20/24 09:27 Ipratropium/Albuterol 0.5-3 Mg 3 Ml Ampul.Neb INHALATION 03/14/25 10:29 3 ml Q4HR ALEX Administration Aspirin 81 mg 03/14/24 09:00 03/20/24 08:58 Aspirin 81 Mg Tablet. PO 03/14/25 08:59 81 mg DAILY ALEX Administration Atorvastatin Calcium 40 mg 03/14/24 21:00 03/19/24 21:27 Atorvastatin 40 Mg Tablet PO 03/14/25 20:59 40 mg QPM ALEX Administration Atropine Sulfate 1 mg 03/20/24 14:00 Atropine Sulfate 1 Mg/10 Ml Syringe IV-PUSH ONCE PRN Bradycardia Bisacodyl 10 mg 03/14/24 02:07 03/15/24 04:58 Bisacodyl 5 Mg Tablet. PO 03/14/25 02:06 10 mg DAILY PRN Administration Constipation Budesonide/Formoterol Fumarate 2 puff 03/14/24 09:00 03/20/24 09:28 Budesonide/Formoterol 160-4.5 Mcg 60 Puff/6 Gm Hfa.Aer.Ad INHALATION 03/14/25 08:59 2 puff BID ALEX Administration Carvedilol 18.75 mg 03/18/24 21:00 03/20/24 08:57 Carvedilol 6.25 Mg Tablet PO 03/18/25 20:59 18.75 mg BID ALEX Administration Dofetilide 250 mcg 03/17/24 21:00 03/20/24 08:58 Dofetilide 250 Mcg Capsule PO 03/17/25 20:59 250 mcg BID ALEX Administration Finasteride 5 mg 03/14/24 09:00 03/20/24 08:58 Finasteride 5 Mg Tablet PO 03/14/25 08:59 5 mg DAILY ALEX Administration Fluticasone Propionate 1 spray 03/14/24 09:00 03/20/24 08:58 Fluticasone Propionate [place] 120 [place]/16 Gm Bottle INTRANASAL 03/14/25 08:59 1 spray DAILY ALEX Administration Folic Acid 1 mg 03/14/24 09:00 03/20/24 08:58 Folic Acid 1 Mg Tablet PO 03/14/25 08:59 1 mg DAILY ALEX Administration Furosemide 20 mg 03/17/24 16:00 03/20/24 08:58 Furosemide 20 Mg Tablet PO 03/17/25 15:59 20 mg BID@0800,1600 ALEX Administration Latanoprost 1 drops 03/14/24 22:00 03/19/24 21:28 Latanoprost 0.005% Op Soln 50 Drops/2.5 Ml Bottle EYE-BOTH 03/14/25 21:59 1drops HS ALEX Administration Multivitamins 1 tab 03/14/24 09:00 03/20/24 08:57 Multivitamin 1 Tab Tablet PO 03/14/25 08:59 1 tab DAILY ALEX Administration Ondansetron HCl 4 mg 03/13/24 21:06 Ondansetron 4 Mg/2 Ml Vial IV-PUSH 03/13/25 21:05 Q8H PRN Nausea And Vomiting Pantoprazole Sodium 40 mg 03/14/24 07:30 03/20/24 08:57 Pantoprazole 40 Mg Tablet.Dr PO 03/14/25 07:29 40 mg DAILY.AC.BKFAST ALEX Administration Potassium Chloride 20 meq 03/16/24 09:45 03/20/24 08:58 Potassium Chloride Er 10 Meq Tablet.Er PO 03/16/25 09:44 20 meq BID ALEX Administration Potassium Chloride 40 meq 03/20/24 07:00 Potassium Chloride Er 20 Meq Tab.Er.Prt PO STAT PRN Hypokalemia Propofol 0 mg 03/20/24 14:00 Propofol 200 Mg/20 Ml Vial IV-PUSH 03/20/24 14:01 ONCE ONE Rivaroxaban 20 mg 03/14/24 08:00 03/20/24 08:58 Rivaroxaban 20 Mg Tablet PO 03/14/25 07:59 20 mg DAILY.WITH.BKFAST ALEX Administration Sacubitril/Valsartan 2 tab 03/15/24 21:00 03/20/24 08:58 Sacubitril/Valsartan 24-26mg 1 Tab Tablet PO 03/15/25 20:59 2 tab BID ALEX Administration Senna/Docusate Sodium 2 tab 03/14/24 09:00 03/20/24 08:58 Sennosides/Docusate 8.6-50mg 1 Tab Tablet PO 03/14/25 08:59 2 tab BID ALEX Administration Sodium Chloride 0 ml 03/13/24 22:00 03/20/24 09:01 Sodium Chloride 0.9 % 10 Ml Syringe IV-PUSH 03/13/25 21:59 Not Given QSHIFT ALEX Sodium Chloride 0 ml 03/18/24 13:50 Sodium Chloride 0.9 % 10 Ml Syringe IV-PUSH 03/18/25 13:49 PRN PRN Flush Tamsulosin HCl 0.4 mg 03/14/24 09:00 03/20/24 08:58 Tamsulosin 0.4 Mg Cap.Er.24h PO 03/14/25 08:59 0.4 mg BID ALEX Administration Thiamine HCl 100 mg 03/14/24 09:00 03/20/24 08:57 Thiamine 100 Mg Tablet PO 03/14/25 08:59 100 mg BID ALEX Administration Tramadol HCl 50 mg 03/13/24 21:06 03/13/24 22:31 Tramadol 50 Mg Tablet PO 09/09/24 21:05 50 mg Q6H PRN Administration Pain Scale 4 - 7 Triamcinolone Acetonide 1 applic 03/20/24 14:00 Triamcinolone 0.1% Cream 15 Gm Tube TOPICAL 03/20/24 14:01 ONCE ONE A&P - Hospitalist Assessment/Plan (1) Encephalopathy acute: (2) Atrial fibrillation: (3) Alcohol dependence: (4) Abdominal pain: (5) Chronic HFrEF (heart failure with reduced ejection fraction): (6) Hypertension: (7) Pulmonary sarcoidosis: (8) Carotid stenosis, right: Plan . Documented By: Altaf Jones MD 03/20/241332 Signed By: <Electronically signed by Altaf Jones MD> 03/20/241333 [facility] Work Phone: 1(242) [phone] Progress note Author Shannon Gonzalez [facility] March 19, 2024 4:51pm Note Date/Time March 19, 2024 4 :51pm [facility] [address] [place] [address] Cardiology Progress Note Signed Patient: Mary Mcadams MR#: [id number] : 1955 Acct:[id number] Age/Sex: 68 / M Adm Date: 4 Loc: Room: [address] [place] [address] Type: ADM IN Attending Dr: Altaf Jones MD Copies to: ~ Date of Service: 03/19/2024 Subjective Principal diagnosis: Persistent atrial fibrillation Interval history: Patient converted to normal sinus rhythm yesterday afternoon and presently maintains normal sinus rhythm with normal QTc interval. He has no dyspnea and his vital signs are stable. He will need to be monitored overnight with repeat EKG in the morning, if QTc interval is below 500 ms he will be discharged home on current medications with no further changes, arrangements will be made for the patient to be seen in the office the following week. Exam Physical Exam Vital Signs: Temp Pulse Resp BP Pulse Ox O2 Del Method O2 Flow Rate 97.6 F 75 19 110/72 99 Nasal Cannula 2 03/19/24 16:00 03/19/24 16:00 03/19/24 16:00 03/19/24 16:00 03/19/24 16:00 03/19/24 16:00 03/19/24 11:51 Const General: comfortable and no acute distress Nutritional Appearance: [...] no clubbing, cyanosis or edema Objective Labs 03/14/24 04:52 03/18/24 04:51 A&P - Cardiology (1) Persistent atrial fibrillation: Assessment/Problem Details: Patient converted to sinus rhythm on dofetilide with QTc interval in the therapeutic range Plan: Continue present medications, Cardioversion That Was Scheduled for Tomorrow, Home Tomorrow Code(s): I48.19 - Other persistent atrial fibrillation (2) Carotid stenosis, right: Assessment/Problem Details: Asymptomatic Plan: Vascular surgery recommended medical therapy which has been instituted Code(s): I65.21 - Occlusion and stenosis of right carotid artery (3) Pulmonary sarcoidosis: Assessment/Problem Details: Stable and followed by pulmonary medicine Plan: Continue to follow with pulmonary medicine, I will avoid amiodarone to reduce risk of further pulmonary involvement Code(s): D86.0 - Sarcoidosis of lung (4) Alcohol dependence: Assessment/Problem Details: Patient has cut back on his alcohol consumption Plan: Patient was educated on the need for complete abstinence from alcohol Code(s): F10.20 - Alcohol dependence, uncomplicated (5) Mild left ventricular systolic dysfunction: Assessment/Problem Details: Patient has not had yet investigation to assess for ischemic heart disease Plan: Continue GDMT with carvedilol and Entresto, investigate for ischemic heart disease at a later stage noninvasively Code(s): I51.89 - Other ill-defined heart diseases Documented By: Shannon Gonzalez MD, [facility] 4 1649 Signed By: <Electronically signed by [facility] Shannon Gonzalez> 03/19/24 1651 [facility] Work Phone: 1([phone]) 154-295611-04-2024 Progress note Author Altaf Jones [facility] March 18, 2024 5:47pm Note Date/Time March 18, 2024 5 :47pm [facility] [address] [place] [address] Hospitalist Progress Note Signed Patient: Mary Mcadams MR#: [id number] : 1955 Acct:[id number] Age/Sex: 68 / M Adm Date: 4 Loc: Room: [address] [place] [address] Type: ADM IN Attending Dr: Altaf Jones MD Copies to: ~ Date of Service: 03/18/2024 Subjective Subjective Narrative: Attending note: I saw the patient personally on the day of encounter. I reviewed the relevant history, and performed the gracia elements of the physical examination. I reviewedthe relevant laboratory workup, radiological studies and the current treatment plan. I formulated the plan of care and confirmed it with the resident/student/AUTOMOTIVE SERVICE PROFESSIONAL. Patient is feeling well. No complaints with respect to chest pain or shortness of breath. He is breathing comfortably on 3 L which is his baseline. Lungs are clear today. Heart is regular, no gallop or JVD Abdomen soft benign Neurological as noted. No evidence of focal neurological deficit Assessment and plan 1. Acute decompensated CHF. Responded well to diuretics. Continue oral Lasix 20 twice a day. He does have alittle bit of contraction alkalosis indicating that the diuresis is almost completed. Salinas catheter will be removed today. Continue to monitor daily renal function electrolytes urine output 2. COPD exacerbation. Patient with chronic history of pulmonary sarcoidosis Continue bronchodilators and systemic steroids. Pulmonary exam is essentially at baseline now. Continue to de-escalate steroids 3. Severe proximal right internal carotid artery stenosis Duplex ultrasound showed only moderate disease. Conservative management advisedby vascular surgery at this time. 4. Confusional state. Resolved 5. Atrial fibrillation on amiodarone. Seen by cardiology, dofetilide initiated. Remains anticoagulated with Xarelto. Cardiology plans for cardioversion Monday. 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 Daily alcohol use History of acoustic neuroma GERD BPH Exam Physical Exam Vital Signs: Temp Pulse Resp BP Pulse Ox O2 Del Method O2 Flow Rate 97.6 F 77 18 119/73 97 Nasal Cannula 2 03/18/24 16:36 03/18/24 16:00 03/18/24 16:00 03/18/24 16:00 03/18/24 16:00 03/18/24 16:00 03/18/24 16:00 Objective Lab Results 03/14/24 04:52 03/18/24 04:51 Meds Allergies and Active Meds Allergies No Known Allergies Allergy (Verified 03/08/24 13:25) Active Meds: Active Medications Generic Name Dose Route Start Last Admin Trade Name Freq PRN Reason Stop Dose Admin Acetaminophen 1,000 mg 03/13/24 21:06 03/14/24 21:42 Acetaminophen 500 Mg Tablet PO 03/13/25 21:05 1,000 mg Q6HR PRN Administration Pain Scale 1 - 3 or fever Al Hydrox/Mg Hydrox/Simethicone 30 ml 03/13/24 21:06 Mag Hydrox/Al Hydrox/Simeth 30 Ml Udc PO 03/13/25 21:05 Q4H PRN Indigestion Albuterol/Ipratropium 3 ml 03/14/24 10:30 03/18/24 14:10 Ipratropium/Albuterol 0.5-3 Mg 3 Ml Ampul.Neb INHALATION 03/14/25 10:29 3 ml Q4HR ALEX Administration Aspirin 81 mg 03/14/24 09:00 03/18/24 08:48 Aspirin 81 Mg Tablet. PO 03/14/25 08:59 81 mg DAILY ALEX Administration Atorvastatin Calcium 40 mg 03/14/24 21:00 03/17/24 20:47 Atorvastatin 40 Mg Tablet PO 03/14/25 20:59 40 mg QPM ALEX Administration Atropine Sulfate 1 mg 03/20/24 14:00 Atropine Sulfate 1 Mg/10 Ml Syringe IV-PUSH ONCE PRN Bradycardia Bisacodyl 10 mg 03/14/24 02:07 03/15/24 04:58 Bisacodyl 5 Mg Tablet. PO 03/14/25 02:06 10 mg DAILY PRN Administration Constipation Budesonide/Formoterol Fumarate 2 puff 03/14/24 09:00 03/18/24 10:06 Budesonide/Formoterol 160-4.5 Mcg 60 Puff/6 Gm Hfa.Aer.Ad INHALATION 03/14/25 08:59 2 puff BID ALEX Administration Carvedilol 18.75 mg 03/18/24 21:00 Carvedilol 6.25 Mg Tablet PO 03/18/25 20:59 BID ALEX Dofetilide 250 mcg 03/17/24 21:00 03/18/24 09:31 Dofetilide 250 Mcg Capsule PO 03/17/25 20:59 250 mcg BID ALEX Administration Finasteride 5 mg 03/14/24 09:00 03/18/24 08:46 Finasteride 5 Mg Tablet PO 03/14/25 08:59 5 mg DAILY ALEX Administration Fluticasone Propionate 1 spray 03/14/24 09:00 03/18/24 08:48 Fluticasone Propionate [place] 120 [place]/16 Gm Bottle INTRANASAL 03/14/25 08:59 1 spray DAILY ALEX Administration Folic Acid 1 mg 03/14/24 09:00 03/18/24 08:47 Folic Acid 1 Mg Tablet PO 03/14/25 08:59 1 mg DAILY ALEX Administration Furosemide 20 mg 03/17/24 16:00 03/18/24 16:31 Furosemide 20 Mg Tablet PO 03/17/25 15:59 20 mg BID@0800,1600 ALEX Administration Hydromorphone HCl 0.5 mg 03/14/24 02:27 Hydromorphone 0.5 Mg/0.5 Ml Syringe IV-PUSH Q4H PRN Pain Scale 8 - 10 Latanoprost 1 drops 03/14/24 22:00 03/17/24 20:48 Latanoprost 0.005% Op Soln 50 Drops/2.5 Ml Bottle EYE-BOTH 03/14/25 21:59 1drops HS ALEX Administration Lorazepam 0 mg 03/13/24 21:06 03/14/24 05:56 Lorazepam 1 Mg Tablet PO 09/09/24 21:05 2 mg PROTOCOL PRN Administration Alcohol Withdrawal Protocol Lorazepam 0 mg 03/13/24 21:06 Lorazepam 2 Mg/Ml Vial IV-PUSH 09/09/24 21:05 PROTOCOL PRN Alcohol Withdrawal Protocol Methylprednisolone 16 mg 03/17/24 09:00 03/18/24 08:47 Methylprednisolone 16 Mg Tablet PO 03/17/25 08:59 16 mg QAM ALEX Administration Multivitamins 1 tab 03/14/24 09:00 03/18/24 08:48 Multivitamin 1 Tab Tablet PO 03/14/25 08:59 1 tab DAILY ALEX Administration Ondansetron HCl 4 mg 03/13/24 21:06 Ondansetron 4 Mg/2 Ml Vial IV-PUSH 03/13/25 21:05 Q8H PRN Nausea And Vomiting Pantoprazole Sodium 40 mg 03/14/24 07:30 03/18/24 08:47 Pantoprazole 40 Mg Tablet.Dr PO 03/14/25 07:29 40 mg DAILY.AC.BKFAST ALEX Administration Potassium Chloride 20 meq 03/16/24 09:45 03/18/24 08:47 Potassium Chloride Er 10 Meq Tablet.Er PO 03/16/25 09:44 20 meq BID ALEX Administration Potassium Chloride 40 meq 03/20/24 07:00 Potassium Chloride Er 20 Meq Tab.Er.Prt PO STAT PRN Hypokalemia Propofol 0 mg 03/20/24 14:00 Propofol 200 Mg/20 Ml Vial IV-PUSH 03/20/24 14:01 ONCE ONE Rivaroxaban 20 mg 03/14/24 08:00 03/18/24 08:48 Rivaroxaban 20 Mg Tablet PO 03/14/25 07:59 20 mg DAILY.WITH.BKFAST ALEX Administration Sacubitril/Valsartan 2 tab 03/15/24 21:00 03/18/24 08:47 Sacubitril/Valsartan 24-26mg 1 Tab Tablet PO 03/15/25 20:59 2 tab BID ALEX Administration Senna/Docusate Sodium 2 tab 03/14/24 09:00 03/18/24 08:47 Sennosides/Docusate 8.6-50mg 1 Tab Tablet PO 03/14/25 08:59 2 tab BID ALEX Administration Sodium Chloride 0 ml 03/13/24 22:00 03/18/24 14:46 Sodium Chloride 0.9 % 10 Ml Syringe IV-PUSH 03/13/25 21:59 Not Given QSHIFT ALEX Sodium Chloride 0 ml 03/18/24 13:50 Sodium Chloride 0.9 % 10 Ml Syringe IV-PUSH 03/18/25 13:49 PRN PRN Flush Tamsulosin HCl 0.4 mg 03/14/24 09:00 03/18/24 08:47 Tamsulosin 0.4 Mg Cap.Er.24h PO 03/14/25 08:59 0.4 mg BID ALEX Administration Thiamine HCl 100 mg 03/14/24 09:00 03/18/24 08:47 Thiamine 100 Mg Tablet PO 10/31/25 08:59 100 mg BID ALEX Administration Tramadol HCl 50 mg 03/13/24 21:06 03/13/24 22:31 Tramadol 50 Mg Tablet PO 09/09/24 21:05 50 mg Q6H PRN Administration Pain Scale 4 - 7 Triamcinolone Acetonide 1 applic 03/20/24 14:00 Triamcinolone 0.1% Cream 15 Gm Tube TOPICAL 03/20/24 14:01 ONCE ONE A&P - Hospitalist Assessment/Plan (1) Encephalopathy acute: (2) Atrial fibrillation: (3) Alcohol dependence: (4) Abdominal pain: (5) Chronic HFrEF (heart failure with reduced ejection fraction): (6) Hypertension: (7) Pulmonary sarcoidosis: (8) Carotid stenosis, right: Plan . Documented By: Altaf Jones MD 03/18/24 171 Signed By: <Electronically signed by Altaf Jones MD> 03/18/24 4310 [facility] Work Phone: [phone]) 306-479211-04-2024 Progress note [facility] March 18, 2024 11:06am Note Date/Time March 18, 2024 1 1:07am [facility] [address] [place] [address] Cardiology Progress Note Signed Patient: Mary Mcadams MR#: [id number] : 1955 Acct:[id number] Age/Sex: 68 / M Adm Date: 4 Loc: Room: [address] [place] [address] Type: ADM IN Attending Dr: Altaf Jones MD Copies to: ~ Date of Service: 03/18/2024 Subjective Principal diagnosis: Persistent atrial fibrillation Interval history: Patient is feeling well and denies any dyspnea or palpitations. Remains slightly tachycardic and rhythm remains atrial fibrillation/flutter. Tikosyn was started yesterday. Due to tachycardia will increase carvedilol up to 18.75 mg twice daily, the plan is to proceed with cardioversion on Monday [today is Monday] if he remains in atrial fibrillation. Will continue to monitor QTc interval on daily basis. His QTc interval today was in the therapeutic range. Exam Physical Exam Vital Signs: Temp Pulse Resp BP Pulse Ox O2 Del Method O2 Flow Rate 97.7 F 97 20 114/72 98 Nasal Cannula 2 03/17/24 16:00 03/18/24 10:06 03/18/24 10:06 03/18/24 08:00 03/18/24 08:00 03/18/24 08:00 03/18/24 08:00 Const General: comfortable and no acute distress Nutritional Appearance: [...] no clubbing, cyanosis or edema Objective Labs 03/14/24 04:52 03/18/24 04:51 Labs: Laboratory Results - last 24 hr 03/18/24 04:51 PHA Creatinine Clear 71.44 Sodium 132 L Potassium 4.1 Chloride 97 L Carbon Dioxide 30.2 Anion Gap 8.9 BUN 31 H Creatinine 0.98 Est GFR (CKD-EPI) > 60.0 Glucose 93 Calcium 8.6 A&P - Cardiology (1) Persistent atrial fibrillation: Assessment/Problem Details: Drug loading with dofetilide started yesterday. QTc interval in the therapeuticrange. Heart rate remains above target Plan: Increase carvedilol up to 18.75 mg twice daily, continue Xarelto and Tikosyn, cardioversion in 48 hours if necessary. Code(s): I48.19 - Other persistent atrial fibrillation (2) Carotid stenosis, right: Assessment/Problem Details: Asymptomatic Plan: Vascular surgery recommended medical therapy which has been instituted Code(s): I65.21 - Occlusion and stenosis of right carotid artery (3) Pulmonary sarcoidosis: Assessment/Problem Details: Stable and followed by pulmonary medicine Plan: Continue to follow with pulmonary medicine, I will avoid amiodarone to reduce risk of further pulmonary involvement Code(s): D86.0 - Sarcoidosis of lung (4) Alcohol dependence: Assessment/Problem Details: Patient has cut back on his alcohol consumption Plan: Patient was educated on the need for complete abstinence from alcohol Code(s): F10.20 - Alcohol dependence, uncomplicated (5) Mild left ventricular systolic dysfunction: Assessment/Problem Details: Patient has not had yet investigation to assess for ischemic heart disease Plan: Continue GDMT with carvedilol and Entresto, investigate for ischemic heart disease at a later stage noninvasively Code(s): I51.89 - Other ill-defined heart diseases Documented By: Shannon Gonzalez MD, [facility] 4 1104 Signed By: <Electronically signed by [facility] Shannon Gonzalez> 03/18/24 1106 [facility] Work Phone: [phone] Progress note Author Lula Muniz [facility] March 18, 2024 7:24am Note Date/Time March 15, 2024 1 2:17pm [facility] [address] [place] [address] Vascular Surgery Progress Note Signed Patient: Mary Mcadams MR#: [id number] : 1955 Acct:[id number] Age/Sex: 68 / M Adm Date: 4 Loc: Room: [address] [place] [address] Type: ADM IN Attending Dr: Altaf Jones MD Copies to: ~ Date of Service: 03/15/2024 Subjective Subjective Interval history: Patient seen on morning rounds. He is much more alert and oriented today than when I saw him yesterday morning. He has been started on aspirin and statin medications. He does not have any hemispheric symptoms of his carotid disease. He has no complaints for me this morning. Exam Physical Exam Vital Signs: Temp Pulse Resp BP Pulse Ox O2 Del Method O2 Flow Rate 98.1 F 92 18 120/64 96 Nasal Cannula 2 03/15/24 08:00 03/15/24 10:25 03/15/24 10:25 03/15/24 08:00 03/15/24 08:00 03/15/24 10:00 03/15/24 10:00 Objective Labs 03/14/24 04:52 03/15/24 05:10 Other Labs: Laboratory Results - last 24 hr 03/15/24 05:10 PHA Creatinine Clear 79.89 Sodium 133 L Potassium 3.9 Chloride 94 L Carbon Dioxide 28.7 Anion Gap 14.2 BUN 16 Creatinine 0.89 Est GFR (CKD-EPI) > 60.0 Glucose 141 H Calcium 8.9 Microbiology Microbiology: Microbiology - Results from entire visit 03/14/24 02:45 Urine - Salinas Catheter Urine Culture - Preliminary A&P - Vascular Assessment/Plan (1) Encephalopathy acute: (2) Atrial fibrillation: Qualifiers: Atrial fibrillation type: paroxysmal Qualified Code(s): I48.0 - 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 (3) Alcohol dependence: (4) Abdominal pain: Qualifiers: Abdominal location: upper abdomen, unspecified Qualified Code(s): R10.10 - Upper abdominal pain, unspecified (5) Chronic HFrEF (heart failure with reduced ejection fraction): (6) Hypertension: Qualifiers: Hypertension type: primary hypertension Qualified Code(s): I10 - Essential (primary) hypertension (7) Pulmonary sarcoidosis: (8) Carotid stenosis, right: Plan This patient has severe right ICA stenosis. He is asymptomatic of his carotid disease and has now been started on good medical therapy with use of aspirin andstatin here in the hospital. He also takes Xarelto for his A-fib. This patienthas multiple health issues and comorbidities. In the absence of any symptoms toinclude hemispheric weakness, aphasia, or amaurosis fugax we should continue maximum medical management for now and follow him along closely. We reviewed signs and symptoms of carotid occlusive disease and when would be appropriate toreturn for further evaluation if any issues present. Most recently, he is suffering with alcohol withdrawal with episodes of delirium and encephalopathy with associated mild psychosis and visual hallucinations related to his alcohol withdrawal. Currently this is gradually improving. Documented By: Lula Muniz APRN 03/15/24 1 215 Signed By: <Electronically signed by CHARLEY Muniz> 03/18/24 0724 <Electronically signed by Baudilio Moura MD> 03/15/24 3693 [facility] Work Phone: [phone] 136-362411-03-2024 Progress note Author Andres Herrera [facility] March 17, 2024 1:58pm Note Date/Time March 17, 2024 1 :59pm [facility] [address] [place] [address] Cardiology Progress Note Signed Patient: Mary Mcadams MR#: [id number] : 1955 Acct:[id number] Age/Sex: 68 / M Adm Date: 4 Loc: 4 Room: [address] [place] [address] Type: ADM IN Attending Dr: Altaf Jones MD Copies to: ~ Date of Service: 03/17/2024 Subjective Interval history: Overall doing well. He continues to be rate controlled in 90-100s. Plan to start tikosyn tonight. Exam Physical Exam Vital Signs: Temp Pulse Resp BP Pulse Ox O2 Del Method O2 Flow Rate 97.6 F 91 20 106/64 95 Nasal Cannula 2 03/17/24 11:07 03/17/24 11:07 03/17/24 11:07 03/17/24 11:07 03/17/24 11:07 03/17/24 11:07 03/17/24 11:07 Const General: comfortable and no acute distress Nutritional Appearance: [...] no clubbing, cyanosis or edema Objective Labs 03/14/24 04:52 03/17/24 04:41 Labs: Laboratory Results - last 24 hr 03/17/24 04:41 PHA Creatinine Clear 74.53 Sodium 134 L Potassium 4.0 Chloride 96 L Carbon Dioxide 32.3 H Anion Gap 9.7 BUN 28 H Creatinine 0.95 Est GFR (CKD-EPI) > 60.0 Glucose 111 H Calcium 8.7 A&P - Cardiology (1) Persistent atrial fibrillation: Assessment/Problem Details: Patient had cardioversion 2 weeks ago that was successful but went back in atrial fibrillation Plan: Discontinued amiodarone. Will start dofetilide 250 mcg twice daily starting tonight. Follow daily EKGs, Continue Xarelto. Code(s): I48.19 - Other persistent atrial fibrillation (2) Carotid stenosis, right: Assessment/Problem Details: Asymptomatic Plan: Vascular surgery recommended medical therapy which has been instituted Code(s): I65.21 - Occlusion and stenosis of right carotid artery (3) Pulmonary sarcoidosis: Assessment/Problem Details: Stable and followed by pulmonary medicine Plan: Continue to follow with pulmonary medicine, I will avoid amiodarone to reduce risk of further pulmonary involvement Code(s): D86.0 - Sarcoidosis of lung (4) Alcohol dependence: Assessment/Problem Details: Patient has cut back on his alcohol consumption Plan: Patient was educated on the need for complete abstinence from alcohol Code(s): F10.20 - Alcohol dependence, uncomplicated (5) Mild left ventricular systolic dysfunction: Assessment/Problem Details: Patient has not had yet investigation to assess for ischemic heart disease Plan: Continue beta-blockers and increase Entresto up to 49/50 mg twice daily Code(s): I51.89 - Other ill-defined heart diseases Documented By: Andres Herrera MD 08/05 Signed By: <Electronically signed by Andres Herrera MD> 03/17/24 0238 [facility] Work Phone: [phone]) 483-235511-03-2024 Progress note Author Altaf Jones [facility] March 17, 2024 10:48am Note Date/Time March 17, 2024 1 0:48am [facility] [address] [place] [address] Hospitalist Progress Note Signed Patient: Mary Mcadams MR#: [id number] : 1955 Acct:[id number] Age/Sex: 68 / M Adm Date: 4 Loc: Room: [address] [place] [address] Type: ADM IN Attending Dr: Altaf Jones MD Copies to: ~ Date of Service: 03/17/2024 Subjective Subjective Narrative: Patient is feeling well. No complaints with respect to chest pain or shortness of breath. He is breathing comfortably on 3 L which is his baseline. Lungs are clear today. Heart is regular, no gallop or JVD Abdomen soft benign Neurological as noted. No evidence of focal neurological deficit Assessment and plan 1. Acute decompensated CHF. Responded well to diuretics. Decrease dose of oral Lasix to 20 twice a day. [place] have a little bit of contraction alkalosis indicating that the diuresis is almost completed. Salinas catheter was inserted for urinary retention. Continue to monitor daily renal function electrolytes urine output 2. COPD exacerbation. Patient with chronic history of pulmonary sarcoidosis Continue bronchodilators and systemic steroids. Pulmonary exam is essentially at baseline now. Continue to de-escalate steroids 3. Severe proximal right internal carotid artery stenosis Duplex ultrasound showed only moderate disease. Conservative management advisedby vascular surgery at this time. 4. Confusional state. Resolved 5. Atrial fibrillation on amiodarone. Seen by cardiology, dofetilide initiated. Remains anticoagulated with Xarelto Discharge home when okay with cardiology. 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 Daily alcohol use History of acoustic neuroma GERD BPH Exam Physical Exam Vital Signs: Temp Pulse Resp BP Pulse Ox O2 Del Method O2 Flow Rate 97.5 F L 98 20 132/77 96 Nasal Cannula 2 03/17/24 08:48 03/17/24 08:48 03/17/24 08:48 03/17/24 08:48 03/17/24 08:48 03/17/24 08:48 03/17/24 08:48 Objective Lab Results 03/14/24 04:52 03/17/24 04:41 Microbiology Results Microbiology 03/14/24 02:45 Urine - Salinas Catheter Urine Culture - Final Strep agalactiae - (group b) Meds Allergies and Active Meds Allergies No Known Allergies Allergy (Verified 03/08/24 13:25) Active Meds: Active Medications Generic Name Dose Route Start Last Admin Trade Name Freq PRN Reason Stop Dose Admin Acetaminophen 1,000 mg 03/13/24 21:06 03/14/24 21:42 Acetaminophen 500 Mg Tablet PO 03/13/25 21:05 1,000 mg Q6HR PRN Administration Pain Scale 1 - 3 or fever Al Hydrox/Mg Hydrox/Simethicone 30 ml 03/13/24 21:06 Mag Hydrox/Al Hydrox/Simeth 30 Ml Udc PO 03/13/25 21:05 Q4H PRN Indigestion Albuterol/Ipratropium 3 ml 03/14/24 10:30 03/17/24 05:29 Ipratropium/Albuterol 0.5-3 Mg 3 Ml Ampul.Neb INHALATION 03/14/25 10:29 3 ml Q4HR ALEX Administration Aspirin 81 mg 03/14/24 09:00 03/17/24 08:49 Aspirin 81 Mg Tablet. PO 03/14/25 08:59 81 mg DAILY ALEX Administration Atorvastatin Calcium 40 mg 03/14/24 21:00 03/16/24 21:14 Atorvastatin 40 Mg Tablet PO 03/14/25 20:59 40 mg QPM ALEX Administration Bisacodyl 10 mg 03/14/24 02:07 03/15/24 04:58 Bisacodyl 5 Mg Tablet. PO 03/14/25 02:06 10 mg DAILY PRN Administration Constipation Budesonide/Formoterol Fumarate 2 puff 03/14/24 09:00 03/16/24 21:00 Budesonide/Formoterol 160-4.5 Mcg 60 Puff/6 Gm Hfa.Aer.Ad INHALATION 03/14/25 08:59 2 puff BID ALEX Administration Carvedilol 12.5 mg 03/13/24 23:00 03/17/24 08:50 Carvedilol 12.5 Mg Tablet PO 03/13/25 22:59 12.5 mg BID ALEX Administration Dofetilide 250 mcg 03/17/24 21:00 Dofetilide 250 Mcg Capsule PO 03/17/25 20:59 BID ALEX Finasteride 5 mg 03/14/24 09:00 03/17/24 08:52 Finasteride 5 Mg Tablet PO 03/14/25 08:59 5 mg DAILY ALEX Administration Fluticasone Propionate 1 spray 03/14/24 09:00 03/17/24 08:53 Fluticasone Propionate Fairbank 120 Fairbank/16 Gm Bottle INTRANASAL 03/14/25 08:59 1 spray DAILY ALEX Administration Folic Acid 1 mg 03/14/24 09:00 03/17/24 08:50 Folic Acid 1 Mg Tablet PO 03/14/25 08:59 1 mg DAILY ALEX Administration Furosemide 20 mg 03/17/24 16:00 Furosemide 20 Mg Tablet PO 03/17/25 15:59 BID@0800,1600 ALEX Hydromorphone HCl 0.5 mg 03/14/24 02:27 Hydromorphone 0.5 Mg/0.5 Ml Syringe IV-PUSH Q4H PRN Pain Scale 8 - 10 Latanoprost 1 drops 03/14/24 22:00 03/16/24 21:16 Latanoprost 0.005% Op Soln 50 Drops/2.5 Ml Bottle EYE-BOTH 03/14/25 21:59 1drops HS ALEX Administration Lorazepam 0 mg 03/13/24 21:06 03/14/24 05:56 Lorazepam 1 Mg Tablet PO 09/09/24 21:05 2 mg PROTOCOL PRN Administration Alcohol Withdrawal Protocol Lorazepam 0 mg 03/13/24 21:06 Lorazepam 2 Mg/Ml Vial IV-PUSH 09/09/24 21:05 PROTOCOL PRN Alcohol Withdrawal Protocol Methylprednisolone 16 mg 03/17/24 09:00 03/17/24 08:49 Methylprednisolone 16 Mg Tablet PO 03/17/25 08:59 16 mg QAM ALEX Administration Multivitamins 1 tab 03/14/24 09:00 03/17/24 08:49 Multivitamin 1 Tab Tablet PO 03/14/25 08:59 1 tab DAILY ALEX Administration Ondansetron HCl 4 mg 03/13/24 21:06 Ondansetron 4 Mg/2 Ml Vial IV-PUSH 03/13/25 21:05 Q8H PRN Nausea And Vomiting Pantoprazole Sodium 40 mg 03/14/24 07:30 03/17/24 08:50 Pantoprazole 40 Mg Tablet.Dr PO 03/14/25 07:29 40 mg DAILY.AC.BKFAST ALEX Administration Potassium Chloride 20 meq 03/16/24 09:45 03/17/24 08:50 Potassium Chloride Er 10 Meq Tablet.Er PO 03/16/25 09:44 20 meq BID ALEX Administration Rivaroxaban 20 mg 03/14/24 08:00 03/17/24 08:50 Rivaroxaban 20 Mg Tablet PO 03/14/25 07:59 20 mg DAILY.WITH.BKFAST ALEX Administration Sacubitril/Valsartan 2 tab 03/15/24 21:00 03/17/24 08:49 Sacubitril/Valsartan 24-26mg 1 Tab Tablet PO 03/15/25 20:59 2 tab BID ALEX Administration Senna/Docusate Sodium 2 tab 03/14/24 09:00 03/17/24 08:49 Sennosides/Docusate 8.6-50mg 1 Tab Tablet PO 03/14/25 08:59 2 tab BID ALEX Administration Sodium Chloride 0 ml 03/13/24 22:00 03/17/24 07:23 Sodium Chloride 0.9 % 10 Ml Syringe IV-PUSH 03/13/25 21:59 Not Given QSHIFT ALEX Tamsulosin HCl 0.4 mg 03/14/24 09:00 03/17/24 08:50 Tamsulosin 0.4 Mg Cap.Er.24h PO 03/14/25 08:59 0.4 mg BID ALEX Administration Thiamine HCl 100 mg 03/14/24 09:00 03/17/24 08:51 Thiamine 100 Mg Tablet PO 03/14/25 08:59 100 mg BID ALEX Administration Tramadol HCl 50 mg 03/13/24 21:06 03/13/24 22:31 Tramadol 50 Mg Tablet PO 09/09/24 21:05 50 mg Q6H PRN Administration Pain Scale 4 - 7 A&P - Hospitalist Assessment/Plan (1) Encephalopathy acute: (2) Atrial fibrillation: (3) Alcohol dependence: (4) Abdominal pain: (5) Chronic HFrEF (heart failure with reduced ejection fraction): (6) Hypertension: (7) Pulmonary sarcoidosis: (8) Carotid stenosis, right: Plan . Documented By: Altaf Jones MD 03/17/241046 Signed By: <Electronically signed by Altaf Jones MD> 03/17/241047 [facility] Work Phone: 1(166) 375-104911-02-2024 Progress note Author Andres Herrera [facility] March 16, 2024 4:19pm Note Date/Time March 16, 2024 4 :19pm [facility] [address] [place] [address] Cardiology Progress Note Signed Patient: Mary Mcadams MR#: [id number] : 1955 Acct:[id number] Age/Sex: 68 / M Adm Date: 4 Loc: 4 Room: [address] [place] [address] Type: ADM IN Attending Dr: Altaf Jones MD Copies to: ~ Date of Service: 03/16/2024 Subjective Interval history: Overall doing well. He is rate controlled in 90-100s. Plan to start tikosyn tomorrow. Exam Physical Exam Vital Signs: Temp Pulse Resp BP Pulse Ox O2 Del Method O2 Flow Rate 97.9 F 104 H 20 96/62 L 96 Nasal Cannula 2 03/16/24 15:48 03/16/24 15:48 03/16/24 15:48 03/16/24 15:48 03/16/24 15:48 03/16/24 15:48 03/16/24 15:48 Const General: comfortable and no acute distress Nutritional Appearance: [...] no clubbing, cyanosis or edema Objective Labs 03/14/24 04:52 03/16/24 05:24 Labs: Laboratory Results - last 24 hr 03/16/24 05:24 PHA Creatinine Clear 85.62 Sodium 132 L Potassium 3.5 Chloride 95 L Carbon Dioxide 28.6 Anion Gap 11.9 BUN 22 Creatinine 0.82 Est GFR (CKD-EPI) > 60.0 Glucose 127 H Calcium 8.2 L A&P - Cardiology (1) Persistent atrial fibrillation: Assessment/Problem Details: Patient had cardioversion 2 weeks ago that was successful but went back in atrial fibrillation Plan: Discontinue amiodarone. Will start dofetilide 250 mcg twice daily starting tomorrow. Follow daily EKGs, Continue Xarelto. Code(s): I48.19 - Other persistent atrial fibrillation (2) Carotid stenosis, right: Assessment/Problem Details: Asymptomatic Plan: Vascular surgery recommended medical therapy which has been instituted Code(s): I65.21 - Occlusion and stenosis of right carotid artery (3) Pulmonary sarcoidosis: Assessment/Problem Details: Stable and followed by pulmonary medicine Plan: Continue to follow with pulmonary medicine, I will avoid amiodarone to reduce risk of further pulmonary involvement Code(s): D86.0 - Sarcoidosis of lung (4) Alcohol dependence: Assessment/Problem Details: Patient has cut back on his alcohol consumption Plan: Patient was educated on the need for complete abstinence from alcohol Code(s): F10.20 - Alcohol dependence, uncomplicated (5) Mild left ventricular systolic dysfunction: Assessment/Problem Details: Patient has not had yet investigation to assess for ischemic heart disease Plan: Continue beta-blockers and increase Entresto up to 49/50 mg twice daily Code(s): I51.89 - Other ill-defined heart diseases Documented By: Andres Herrera MD 07/08 Signed By: <Electronically signed by Andres Herrera MD> 03/16/24 1613 [facility] Work Phone: 1(206) 365-770311-02-2024 Progress note Author Altaf Jones [facility] March 16, 2024 12:43pm Note Date/Time March 16, 2024 1 2:42pm [facility] [address] [place] [address] Hospitalist Progress Note Signed Patient: Mary Mcadams MR#: [id number] : 1955 Acct:[id number] Age/Sex: 68 / M Adm Date: 4 Loc: Room: [address] [place] [address] Type: ADM IN Attending Dr: Altaf Jones MD Copies to: ~ Date of Service: 03/16/2024 Subjective Subjective Narrative: Patient is asymptomatic. Resting comfortably in bed. Salinas catheter in place Lungs are clear today. Heart is regular, no gallop or JVD Abdomen soft benign Neurological as noted. No evidence of focal neurological deficit Assessment and plan 1. Acute decompensated CHF. Responded well to diuretics. Transition to oral Lasix today Salinas catheter was inserted for urinary retention. Continue to monitor daily renal function electrolytes urine output 2. COPD exacerbation. Patient with chronic history of pulmonary sarcoidosis Continue bronchodilators and systemic steroids. Pulmonary exam is essentially at baseline now. De-escalate steroids 3. Severe proximal right internal carotid artery stenosis Duplex ultrasound showed only moderate disease. Conservative management advisedby vascular surgery at this time. 4. Confusional state. Resolved 5. Atrial fibrillation on amiodarone. Seen by cardiology, dofetilide initiated. 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 Daily alcohol use History of acoustic neuroma GERD BPH Exam Physical Exam Vital Signs: Temp Pulse Resp BP Pulse Ox O2 Del Method O2 Flow Rate 97.8 F 90 20 120/74 99 Nasal Cannula 2 03/16/24 11:10 03/16/24 11:10 03/16/24 11:10 03/16/24 11:10 03/16/24 11:10 03/16/24 11:10 03/16/24 11:10 Objective Lab Results 03/14/24 04:52 03/16/24 05:24 Microbiology Results Microbiology 03/14/24 02:45 Urine - Salinas Catheter Urine Culture - Final Strep agalactiae - (group b) Meds Allergies and Active Meds Allergies No Known Allergies Allergy (Verified 03/08/24 13:25) Active Meds: Active Medications Generic Name Dose Route Start Last Admin Trade Name Freq PRN Reason Stop Dose Admin Acetaminophen 1,000 mg 03/13/24 21:06 03/14/24 21:42 Acetaminophen 500 Mg Tablet PO 03/13/25 21:05 1,000 mg Q6HR PRN Administration Pain Scale 1 - 3 or fever Al Hydrox/Mg Hydrox/Simethicone 30 ml 03/13/24 21:06 Mag Hydrox/Al Hydrox/Simeth 30 Ml Udc PO 03/13/25 21:05 Q4H PRN Indigestion Albuterol/Ipratropium 3 ml 03/14/24 10:30 03/16/24 09:33 Ipratropium/Albuterol 0.5-3 Mg 3 Ml Ampul.Neb INHALATION 03/14/25 10:29 3 ml Q4HR ALEX Administration Aspirin 81 mg 03/14/24 09:00 03/16/24 08:57 Aspirin 81 Mg Tablet. PO 03/14/25 08:59 81 mg DAILY ALEX Administration Atorvastatin Calcium 40 mg 03/14/24 21:00 03/15/24 21:49 Atorvastatin 40 Mg Tablet PO 03/14/25 20:59 40 mg QPM ALEX Administration Bisacodyl 10 mg 03/14/24 02:07 03/15/24 04:58 Bisacodyl 5 Mg Tablet. PO 03/14/25 02:06 10 mg DAILY PRN Administration Constipation Budesonide/Formoterol Fumarate 2 puff 03/14/24 09:00 03/16/24 09:34 Budesonide/Formoterol 160-4.5 Mcg 60 Puff/6 Gm Hfa.Aer.Ad INHALATION 03/14/25 08:59 2 puff BID ALEX Administration Carvedilol 12.5 mg 03/13/24 23:00 03/16/24 08:58 Carvedilol 12.5 Mg Tablet PO 03/13/25 22:59 12.5 mg BID ALEX Administration Dofetilide 250 mcg 03/17/24 21:00 Dofetilide 250 Mcg Capsule PO 03/17/25 20:59 BID ALEX Finasteride 5 mg 03/14/24 09:00 03/16/24 08:56 Finasteride 5 Mg Tablet PO 03/14/25 08:59 5 mg DAILY ALEX Administration Fluticasone Propionate 1 spray 03/14/24 09:00 03/16/24 08:59 Fluticasone Propionate Fairbank 120 Fairbank/16 Gm Bottle INTRANASAL 03/14/25 08:59 1 spray DAILY ALEX Administration Folic Acid 1 mg 03/14/24 09:00 03/16/24 08:58 Folic Acid 1 Mg Tablet PO 03/14/25 08:59 1 mg DAILY ALEX Administration Furosemide 40 mg 03/16/24 16:00 Furosemide 40 Mg Tablet PO 03/16/25 15:59 BID@0800,1600 ALEX Hydromorphone HCl 0.5 mg 03/14/24 02:27 Hydromorphone 0.5 Mg/0.5 Ml Syringe IV-PUSH Q4H PRN Pain Scale 8 - 10 Latanoprost 1 drops 03/14/24 22:00 03/15/24 21:52 Latanoprost 0.005% Op Soln 50 Drops/2.5 Ml Bottle EYE-BOTH 03/14/25 21:59 1drops HS ALEX Administration Lorazepam 0 mg 03/13/24 21:06 03/14/24 05:56 Lorazepam 1 Mg Tablet PO 09/09/24 21:05 2 mg PROTOCOL PRN Administration Alcohol Withdrawal Protocol Lorazepam 0 mg 03/13/24 21:06 Lorazepam 2 Mg/Ml Vial IV-PUSH 09/09/24 21:05 PROTOCOL PRN Alcohol Withdrawal Protocol Methylprednisolone 32 mg 03/14/24 10:45 03/16/24 08:56 Methylprednisolone 16 Mg Tablet PO 03/14/25 10:44 32 mg QAM ALEX Administration Multivitamins 1 tab 03/14/24 09:00 03/16/24 08:58 Multivitamin 1 Tab Tablet PO 03/14/25 08:59 1 tab DAILY ALEX Administration Ondansetron HCl 4 mg 03/13/24 21:06 Ondansetron 4 Mg/2 Ml Vial IV-PUSH 03/13/25 21:05 Q8H PRN Nausea And Vomiting Pantoprazole Sodium 40 mg 03/14/24 07:30 03/16/24 08:59 Pantoprazole 40 Mg Tablet.Dr PO 03/14/25 07:29 40 mg DAILY.AC.BKFAST ALEX Administration Potassium Chloride 20 meq 03/16/24 09:45 03/16/24 11:09 Potassium Chloride Er 10 Meq Tablet.Er PO 03/16/25 09:44 20 meq BID ALEX Administration Rivaroxaban 20 mg 03/14/24 08:00 03/16/24 08:58 Rivaroxaban 20 Mg Tablet PO 03/14/25 07:59 20 mg DAILY.WITH.BKFAST ALEX Administration Sacubitril/Valsartan 2 tab 03/15/24 21:00 03/16/24 08:56 Sacubitril/Valsartan 24-26mg 1 Tab Tablet PO 03/15/25 20:59 2 tab BID ALEX Administration Senna/Docusate Sodium 2 tab 03/14/24 09:00 03/16/24 08:57 Sennosides/Docusate 8.6-50mg 1 Tab Tablet PO 03/14/25 08:59 2 tab BID ALEX Administration Sodium Chloride 0 ml 03/13/24 22:00 03/16/24 06:23 Sodium Chloride 0.9 % 10 Ml Syringe IV-PUSH 03/13/25 21:59 10 ml QSHIFT ALEX Administration Tamsulosin HCl 0.4 mg 03/14/24 09:00 03/16/24 08:58 Tamsulosin 0.4 Mg Cap.Er.24h PO 03/14/25 08:59 0.4 mg BID ALEX Administration Thiamine HCl 100 mg 03/14/24 09:00 03/16/24 08:58 Thiamine 100 Mg Tablet PO 03/14/25 08:59 100 mg BID ALEX Administration Tramadol HCl 50 mg 03/13/24 21:06 03/13/24 22:31 Tramadol 50 Mg Tablet PO 09/09/24 21:05 50 mg Q6H PRN Administration Pain Scale 4 - 7 A&P - Hospitalist Assessment/Plan (1) Encephalopathy acute: (2) Atrial fibrillation: (3) Alcohol dependence: (4) Abdominal pain: (5) Chronic HFrEF (heart failure with reduced ejection fraction): (6) Hypertension: (7) Pulmonary sarcoidosis: (8) Carotid stenosis, right: Plan . Documented By: Altaf Jones MD 03/16/24 1240 Signed By: <Electronically signed by Altaf Jones MD> 03/16/24 1243 [facility] Work Phone: 1(144) 593-117011-01-2024 Consult note Author Shannon Gonzalez [facility] March 15, 2024 4:27pm Note Date/Time March 15, 2024 4 :26pm [facility] [address] [place] [address] Cardiology Consult Note Signed Patient: Mary Mcadams MR#: [id number] : 1955 Acct:[id number] Age/Sex: 68 / M Adm Date: 4 Loc: Room: [address] [place] [address] Type: ADM IN Attending Dr: Altaf Jones MD Copies to: MD Adam Carballo,DO Shannon Gonzalez MD, FACC~ Cardiology HPI History of Present Illness Consult Date: 03/15/24 Reason for Consult: Atrial fibrillation HPI: Mr. Mcadams is a 68 year old male who is being seen at request of the hospitalist for atrial fibrillation. 2 weeks ago I performed successful cardioversion on this patient when he was in house for heart failure and atrial fibrillation. He was kept on amiodarone loading dose and has been on Xarelto for 2 months. The patient presented to [place]'s emergency department yesterday with altered mental status and generalized aches. He was found to be in atrial fibrillation and was therefore transferred back care. The patient hashistory of left ventricular systolic dysfunction ejection fraction 45% based on the last echocardiogram February 2024. He has not had myocardial ischemia evaluation. He does not have any symptoms suggestive of ischemic heart disease. He confesses to drinking alcohol in the form of beer but he indicated that he does not exceed 2 beers a day. His brain imaging studies were unremarkable. His renal function was normal and his CBC was unremarkable. Patient has historyof pulmonary sarcoidosis which has been documented consistently and he has followed with Dr. Muniz. Whether the patient has cardiac involvement with sarcoidosis is yet to be determined later with cardiac MRI. At the present timethe patient's heart rate is controlled, he is still on amiodarone and Xarelto. He has been started recently on Entresto and has been on beta-abisai therapy. The lower extremity edema that was present few weeks ago has improved. He denies orthopnea PND and denies any bleeding problems. He describes generalizedaches in the torso front back and sideways. This is not effort related and the cause is undetermined. My course of action for this admission is to emphasize the need for alcohol cessation and try to utilize another antiarrhythmic therapysuch as dofetilide since he has a significant underlying pulmonary disease and amiodarone may not be in the best of his interest. Having normal renal functionmakes it easier for us to switch to Tikosyn. This will start on Monday, today is Monday. Incidentally he was found to have 90% stenosis of the right internalcarotid artery when he had his imaging studies in the ER at [facility]. He was seen by vascular surgery and they recommended medical therapy since the patient is asymptomatic. Antiplatelet therapy and statin therapy have been initiated. Neurology had seen the patient and they simply concurred with medical therapy. Review of Systems Review of Systems Review of systems: All other review of system essentially unremarkable or covered in [facility] Medical History Carotid stenosis, right CTA: 90% right ICA - 02/2024 Alcohol dependence Atrial fibrillation Pulmonary sarcoidosis Hypertension History of cardioversion Abdominal pain Rectal bleeding Cardiac sarcoidosis Bullous emphysema History of aspergilloma Benign prostatic hyperplasia with lower urinary tract symptoms Acoustic neuroma Chronic HFrEF (heart failure with reduced ejection fraction) Lumbar spondylosis Gastroesophageal reflux disease with esophagitis without hemorrhage Diverticulosis Personal history of colonic polyps Chronic respiratory failure with hypoxia Nonischemic cardiomyopathy Echo: LVEF 45-50%, normal RV size/function, mild aortic root dilatation 4.0 cm - 02/2024 Hyponatremia Surgical History H/O colonoscopy (~10/2021) repeat 5 years History of arthroscopic knee surgery Family History Brother Heart disease Legacy FamHx Relation: Brother(s) Father Cancer Legacy FamHx Problem: Diagnosed with Cancer Mother Heart disease Myocardial infarction Diabetes Social History Smoking Status: Never smoker Substance Use Type: Alcohol Substance Abuse Comment: reports 4-5 beers daily Social History Comments: Son and son's significant other Meds Medications and Allergies Allergies No Known Allergies Allergy (Verified 03/08/24 13:25) Home Medications sacubitril 24 mg-valsartan 26 mg tablet (Entresto) 1 tab PO BID 05/11/18 [History Confirmed 03/08/24] albuterol sulfate 2.5 mg/3 mL (0.083 %) solution for nebulization 2.5 mg inhalation QID 09/08/23 [History Confirmed 03/08/24] finasteride 5 mg tablet 5 mg PO DAILY 09/08/23 [History Confirmed 03/08/24] fluticasone propionate 50 mcg/actuation nasal spray,suspension 1 spray intranasal DAILY 09/08/23 [History Confirmed 03/08/24] tamsulosin 0.4 mg capsule 0.4 mg PO BID 09/08/23 [History Confirmed 03/08/24] latanoprost 0.005 % eye drops 1 drp ophthalmic (eye) DAILY 10/12/23 [History Confirmed 03/08/24] Oxygen 10/23/23 [History Confirmed 03/08/24] albuterol sulfate 90 mcg/actuation aerosol inhaler See Rx Instructions .Route .COMPLEX #18 grams 10/23/23 [Rx Confirmed 03/08/24] fluticasone fur. 200 mcg-umeclid 62.5 mcg-vilant 25 mcg inhalat.powder (Trelegy Ellipta) 1 inh inhalation DAILY #180 ea 10/23/23 [Rx Confirmed 03/08/24] ipratropium 0.5 mg-albuterol 3 mg (2.5 mg base)/3 mL nebulization soln 3 ml inhalation QID 30 days #360 mL 01/30/24 [Rx Confirmed 03/08/24] fluticasone 500 mcg-salmeterol 50 mcg/dose blistr powdr for inhalation inhalation 02/02/24 [History Confirmed 03/08/24] rivaroxaban 20 mg tablet (Xarelto) 20 mg PO DAILY.WITH.BKFAST 30 days #30 tabs 02/04/24 [Rx Confirmed 03/08/24] carvedilol 12.5 mg tablet 12.5 mg PO BID 30 days #60 tabs 02/14/24 [Rx Confirmed 03/08/24] pantoprazole 40 mg tablet,delayed release See Rx Instructions .Route .COMPLEX #90 tabs 02/18/24 [Rx Confirmed 03/08/24] amiodarone 200 mg tablet 200 mg PO BID 30 days #60 tabs 03/01/24 [Rx Confirmed 03/08/24] amiodarone 200 mg tablet 400 mg (2 x 200 mg) PO BID 7 days #28 tabs 03/01/24 [Rx Confirmed 03/08/24] baclofen 10 mg tablet 10 mg PO QID PRN muscle spasm 7 days #28 tabs 03/08/24 [Rx Confirmed 03/08/24] Exam Physical Exam Vital Signs: Temp Pulse Resp BP Pulse Ox O2 Del Method O2 Flow Rate 97.5 F L 84 20 121/87 99 Nasal Cannula 2 03/15/24 12:28 03/15/24 13:20 03/15/24 13:20 03/15/24 12:28 03/15/24 12:28 03/15/24 12:28 03/15/24 12:28 Const General: comfortable and no acute distress Nutritional Appearance: [...] cyanosis or edema Results - Cardiology Labs 03/14/24 04:52 03/15/24 05:10 Lab results: Comprehensive Metabolic Panel 03/15/24 Range/Units 05:10 Sodium 133 L (136-145) mmol/L Potassium 3.9 (3.5-5.1) mmol/L Chloride 94 L (98-107) mmol/L Carbon Dioxide 28.7 (21.0-31.0) mmol/L BUN 16 (7-25) mg/dL Creatinine 0.89 (0.70-1.30) mg/dL Glucose 141 H (70-100) mg/dL Calcium 8.9 (8.6-10.3) mg/dL Intake and Output 03/15/24 03/15/24 03/15/24 07:59 15:59 23:59 Intake Total 200 / 200 Output Total 1475 / 1475 Balance -1275 / -1275 Intake: Oral 200 / 200 Output: Urine Amount (Catheter) 1475 / 1475 Urethral (Salinas) 1475 / 1475 Other: Weight 71.2 kg Date of Last Bowel Movement 03/15/24 Patient Weight 03/15/24 23:59 Weight 71.2 kg EKG Interpretations EKG Attestation EKG: I reviewed this ECG and interpreted as documented below: (Atrial fibrillation with controlled ventricular rate) A&P - Cardiology (1) Persistent atrial fibrillation: Assessment/Problem Details: Patient had cardioversion 2 weeks ago that was successful but went back in atrial fibrillation Plan: Discontinue amiodarone and in 48 hours start dofetilide 250 mcg twice daily and follow daily EKGs, continue Xarelto Code(s): I48.19 - Other persistent atrial fibrillation (2) Carotid stenosis, right: Assessment/Problem Details: Asymptomatic Plan: Vascular surgery recommended medical therapy which has been instituted Code(s): I65.21 - Occlusion and stenosis of right carotid artery (3) Pulmonary sarcoidosis: Assessment/Problem Details: Stable and followed by pulmonary medicine Plan: Continue to follow with pulmonary medicine, I will avoid amiodarone to reduce risk of further pulmonary involvement Code(s): D86.0 - Sarcoidosis of lung (4) Alcohol dependence: Assessment/Problem Details: Patient has cut back on his alcohol consumption Plan: Patient was educated on the need for complete abstinence from alcohol Code(s): F10.20 - Alcohol dependence, uncomplicated (5) Mild left ventricular systolic dysfunction: Assessment/Problem Details: Patient has not had yet investigation to assess for ischemic heart disease Plan: Continue beta-blockers and increase Entresto up to 49/50 mg twice daily Code(s): I51.89 - Other ill-defined heart diseases Documented By: Shannon Gonzalez MD, [facility] 1617 Signed By: <Electronically signed by [facility] Shannon Gonzalez> 03/15/24 1627 [facility] Work Phone: 1(520) 796-593111-01-2024 Consult note Author Gutierrez Jo [facility] March 15, 2024 2:56pm Note Date/Time March 15, 2024 2 :10pm [facility] [address] [place] [address] Physiatry (Rehab) Consult Note Signed Patient: Mary Mcadams MR#: [id number] : 1955 Acct:[id number] Age/Sex: 68 / M Adm Date: 4 Loc: Room: [address] [place] [address] Type: ADM IN Attending Dr: Altaf Jones MD Copies to: MD Adam Carballo DO Christian D Siebenaler, MD~ HPI Consult Date: 03/15/24 Requesting Physician: Altaf Jones MD Primary Care Provider: Adam Del Valle DO Consult Narrative Reason for consult: Acute Encephalopathy HPI: Mr. Mcadams is a 68 year old male with a past history of A-fib, pulmonary sarcoidosis, HTN, systolic heart failure?last EF 45 to 50%, nonischemic cardiomyopathy, and daily alcohol use presented to [facility] emergency room for altered mental status and chest pain due to acute encephalopathy on 03/13/2024 and was then transferred here to [facility]. Patient reported that he had not felt well since his cardioversion was performed2 weeks ago. Currently being treated for his acute encephalopathy with baclofen and alcohol abstinence since last Monday. Patient continues to receive IV hydration and MRI of the brain plus neurology consult will be performed soon. Patient also has right carotid stenosis found on CTA head and neck and vascular surgery will be consulted. Alcohol dependence treated with CIWA protocol, IV Ativan, MVI, folic acid, thiamine. Patient no longer showing signs of being in altered mental state from acute encephalopathy. Patient has LE weakness and tremor in UE. Patient has unsteady gait and impaired mobility but was able to walk 25 feet with assistance and walker. Physical, occupational and speech therapy evaluated the patient. Recommendations are for a [place] [facility] facility at this time. Patient stated that his baseline was notably better when compared to how he is currently. Patient stated that he was independent before his hospitalization and is interested in therapy whether it is inpatient or outpatient. Review of Systems Review of Systems All other systems reviewed & are negative unless noted below or in HPI [facility] Medical History Carotid stenosis, right CTA: 90% right ICA - 02/2024 Alcohol dependence Atrial fibrillation Pulmonary sarcoidosis Hypertension History of cardioversion Abdominal pain Rectal bleeding Cardiac sarcoidosis Bullous emphysema History of aspergilloma Benign prostatic hyperplasia with lower urinary tract symptoms Acoustic neuroma Chronic HFrEF (heart failure with reduced ejection fraction) Lumbar spondylosis Gastroesophageal reflux disease with esophagitis without hemorrhage Diverticulosis Personal history of colonic polyps Chronic respiratory failure with hypoxia Nonischemic cardiomyopathy Echo: LVEF 45-50%, normal RV size/function, mild aortic root dilatation 4.0 cm - 02/2024 Hyponatremia Surgical History H/O colonoscopy (~10/2021) repeat 5 years History of arthroscopic knee surgery Family History Brother Heart disease Legacy FamHx Relation: Brother(s) Father Cancer Legacy FamHx Problem: Diagnosed with Cancer Mother Heart disease Myocardial infarction Diabetes Social History Smoking Status: Never smoker Substance Use Type: Alcohol Substance Abuse Comment: reports 4-5 beers daily Social History Comments: Son and son's significant other Meds Medications and Allergies Allergies No Known Allergies Allergy (Verified 03/08/24 13:25) Home Medications sacubitril 24 mg-valsartan 26 mg tablet (Entresto) 1 tab PO BID 05/11/18 [History Confirmed 03/08/24] albuterol sulfate 2.5 mg/3 mL (0.083 %) solution for nebulization 2.5 mg inhalation QID 09/08/23 [History Confirmed 03/08/24] finasteride 5 mg tablet 5 mg PO DAILY 09/08/23 [History Confirmed 03/08/24] fluticasone propionate 50 mcg/actuation nasal spray,suspension 1 spray intranasal DAILY 09/08/23 [History Confirmed 03/08/24] tamsulosin 0.4 mg capsule 0.4 mg PO BID 09/08/23 [History Confirmed 03/08/24] latanoprost 0.005 % eye drops 1 drp ophthalmic (eye) DAILY 10/12/23 [History Confirmed 03/08/24] Oxygen 10/23/23 [History Confirmed 03/08/24] albuterol sulfate 90 mcg/actuation aerosol inhaler See Rx Instructions .Route .COMPLEX #18 grams 10/23/23 [Rx Confirmed 03/08/24] fluticasone fur. 200 mcg-umeclid 62.5 mcg-vilant 25 mcg inhalat.powder (Trelegy Ellipta) 1 inh inhalation DAILY #180 ea 10/23/23 [Rx Confirmed 03/08/24] ipratropium 0.5 mg-albuterol 3 mg (2.5 mg base)/3 mL nebulization soln 3 ml inhalation QID 30 days #360 mL 01/30/24 [Rx Confirmed 03/08/24] fluticasone 500 mcg-salmeterol 50 mcg/dose blistr powdr for inhalation inhalation 02/02/24 [History Confirmed 03/08/24] rivaroxaban 20 mg tablet (Xarelto) 20 mg PO DAILY.WITH.BKFAST 30 days #30 tabs 02/04/24 [Rx Confirmed 03/08/24] carvedilol 12.5 mg tablet 12.5 mg PO BID 30 days #60 tabs 02/14/24 [Rx Confirmed 03/08/24] pantoprazole 40 mg tablet,delayed release See Rx Instructions .Route .COMPLEX #90 tabs 02/18/24 [Rx Confirmed 03/08/24] amiodarone 200 mg tablet 200 mg PO BID 30 days #60 tabs 03/01/24 [Rx Confirmed 03/08/24] amiodarone 200 mg tablet 400 mg (2 x 200 mg) PO BID 7 days #28 tabs 03/01/24 [Rx Confirmed 03/08/24] baclofen 10 mg tablet 10 mg PO QID PRN muscle spasm 7 days #28 tabs 03/08/24 [Rx Confirmed 03/08/24] Exam Physical Exam Vital Signs: Temp Pulse Resp BP Pulse Ox O2 Del Method O2 Flow Rate 97.5 F L 84 20 121/87 99 Nasal Cannula 2 03/15/24 12:28 03/15/24 13:20 03/15/24 13:20 03/15/24 12:28 03/15/24 12:28 03/15/24 12:28 03/15/24 12:28 Narrative: Gen: Awake, oriented, cooperative. Appears alert and has no altered mental state HEENT: Atraumatic, PERRL, EOMI Resp: No respiratory distress Cardio: Extremities well perfused, no edema or cyanosis MSK: limited ROM in LE, unstable gait, no open wounds noted, peripheral sensation/pulses intact Neuro: Tremor in UE, CN grossly intact Skin: No swelling, erythema, ecchymosis appreciated Psych: Mood and affect normal Results - Phys. Rehab Labs Labs: Laboratory Results - last 24 hr 03/15/24 05:10 PHA Creatinine Clear 79.89 Sodium 133 L Potassium 3.9 Chloride 94 L Carbon Dioxide 28.7 Anion Gap 14.2 BUN 16 Creatinine 0.89 Est GFR (CKD-EPI) > 60.0 Glucose 141 H Calcium 8.9 Assessment/Plan (1) Encephalopathy acute: (2) Carotid stenosis, right: (3) Hypertension: Qualifiers: Hypertension type: primary hypertension Qualified Code(s): I10 - Essential (primary) hypertension (4) Alcohol dependence: (5) Pulmonary sarcoidosis: (6) Atrial fibrillation: Qualifiers: Atrial fibrillation type: paroxysmal Qualified Code(s): I48.0 - 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 (7) Chronic HFrEF (heart failure with reduced ejection fraction): (8) Nonischemic cardiomyopathy: Plan Mr. Mcadams is a 68 year old male with a past history of A-fib, pulmonary sarcoidosis, HTN, systolic heart failure?last EF 45 to 50%, nonischemic cardiomyopathy, and daily alcohol use presented to [facility] emergency room for altered mental status and chest pain due to acute encephalopathy on 03/13/2024 and was then transferred here to [facility]. -A [place] [facility] [place] facility would be the most appropriate option for patient; patient is agreeable to this. -Patient currently below his normal baseline and has comorbidities that further accentuate problems with mobility and performing ADLs. Patient was personally seen by me, Dr. Jo, on the day of encounter, reviewed the history and the relevant portions of the chart, including current orders, allied health and health and safety consultant notes, labs/imaging and performed gracia elements of exam and I formulated the plan of care and facilitated the medical decision making. I completed a substantive portion of this encounter, the medical decision makingportion of this note in its entirety, including Allied health note review, nursing note review, health and safety consultant note review, discussion with nursing and case management, and more than 50% of my time was spent on counseling and coordination of care, time spent 60 minutes Documented By: Gutierrez Jo MD [id number] Signed By: <Electronically signed by Gutierrez Jo MD> 03/15/24 9280 [facility] Work Phone: 1(641) 772-950611-01-2024 Progress note Author Eriberto Stover [facility] March 15, 2024 2:40pm Note Date/Time March 15, 2024 2 :40pm [facility] [address] [place] [address] Neurology Progress Note Signed Patient: Mary Mcadams MR#: [id number] : 1955 Acct:[id number] Age/Sex: 68 / M Adm Date: 4 Loc: 4 Room: [address] [place] [address] Type: ADM IN Attending Dr: Altaf Jones MD Copies to: ~ Date of Service: 03/15/2024 Exam Physical Exam Vital Signs: Temp Pulse Resp BP Pulse Ox O2 Del Method O2 Flow Rate 97.5 F L 84 20 121/87 99 Nasal Cannula 2 03/15/24 12:28 03/15/24 13:20 03/15/24 13:20 03/15/24 12:28 03/15/24 12:28 03/15/24 12:28 03/15/24 12:28 Objective Vital Signs Vital Signs: Vital Signs - 24 hr 03/14/24 16:00 03/14/24 17:42 03/14/24 17:43 Temperature 97.8 F Pulse Rate 94 93 Respiratory Rate 18 18 Blood Pressure 138/90 02 Sat by Pulse Oximetry 99 99 Oxygen Delivery Method Nasal Cannula Nasal Cannula Oxygen Flow Rate 2 2 03/14/24 17:46 03/14/24 19:39 03/14/24 20:00 Temperature 97.8 F Pulse Rate 105 H 105 H Respiratory Rate 18 18 Blood Pressure 117/68 02 Sat by Pulse Oximetry 98 Oxygen Delivery Method Nasal Cannula Nasal Cannula Oxygen Flow Rate 2 2 03/14/24 21:17 03/15/24 00:00 03/15/24 00:34 Temperature Pulse Rate 94 99 Respiratory Rate 18 18 Blood Pressure 134/92 02 Sat by Pulse Oximetry 99 Oxygen Delivery Method Nasal Cannula Nasal Cannula Oxygen Flow Rate 2 2 03/15/24 02:10 03/15/24 02:20 03/15/24 04:00 Temperature 97.6 F Pulse Rate 107 H 108 H 96 Respiratory Rate 18 18 18 Blood Pressure 144/82 H 02 Sat by Pulse Oximetry 99 Oxygen Delivery Method Nasal Cannula Oxygen Flow Rate 2 03/15/24 06:12 03/15/24 06:21 03/15/24 08:00 Temperature Pulse Rate 101 H 96 Respiratory Rate 20 18 Blood Pressure 02 Sat by Pulse Oximetry Oxygen Delivery Method Nasal Cannula Oxygen Flow Rate 2 03/15/24 08:00 03/15/24 10:00 03/15/24 10:20 Temperature 98.1 F Pulse Rate 90 109 H Respiratory Rate 18 20 Blood Pressure 120/64 02 Sat by Pulse Oximetry 96 Oxygen Delivery Method Nasal Cannula Nasal Cannula Oxygen Flow Rate 2 2 03/15/24 10:25 03/15/24 12:28 03/15/24 12:28 Temperature 97.5 F L Pulse Rate 92 93 Respiratory Rate 18 24 Blood Pressure 121/87 121/87 02 Sat by Pulse Oximetry 99 Oxygen Delivery Method Nasal Cannula Oxygen Flow Rate 2 03/15/24 12:30 03/15/24 13:20 Temperature Pulse Rate 95 84 Respiratory Rate 20 Blood Pressure 02 Sat by Pulse Oximetry Oxygen Delivery Method Oxygen Flow Rate Labs 03/14/24 04:52 03/15/24 05:10 Therapy Recommendations Therapy Recommendations: OT Recommendations OT Recommended Discharge Assisted Facility,Inpatient Rehab Unit Location OT Recommended Services at Physical Therapy,Occupational Therapy Discharge PT Recommendations PT Recommended Discharge Assisted Facility,Inpatient Rehab Unit Location PT Recommended Services at Physical Therapy,Occupational Therapy Discharge Assessment/Plan (1) Encephalopathy acute: Plan CONSULT REASON: Encephalopathy INTERIM: He says he feels overall better. He denies having any more hallucinations. Nothing to add to review of systems. EXAMINATION: In no distress. No deformities or trauma. Limbs seem well-perfused. No significant edema. Normal work of breathing. Nasal cannula in place. Visualized skin is generally intact and without lesions aside from age-related findings. Affect normal. Patient is alert. Oriented to [facility] and March and 2023. Attention seems normal today. Speech is fluent and nondysarthric. Pupils are equal. Gaze is disconjugate, right eye mild exotropia. But ocular motility is full. No nystagmus. Facial sensation is normal. Hearing is normal. Facial strength is normal. Tongue is midline. Muscle bulk, tone, and strength are normal. Mild postural tremors bilateral upper extremities and head tremor. Reflexes hypoactive throughout. Light touchis normal. Vibratory sensation is absent in bilateral feet but otherwise intact. No limb dysmetria or ataxia. DATA REVIEW: -CTA of head and neck showed 90% narrowing right proximal ICA -MRI brain March 14, 2024 looks unremarkable for acute process ASSESSMENT: 68-year-old man who is alcohol dependent, recently he says he was drinking a sixpack of beer per day which is a lot less than he had been drinking, and then reportedly on Monday he stopped drinking altogether because he was concerned about chest symptoms he was having. He was found after what looked like a fall and had altered mental status. I cannot completely rule out the possibility of an alcohol withdrawal related seizure as playing a role with the fall. MRI of his brain does not show any potential seizure nidus and if he had a seizure, I think it was provoked by alcohol withdrawal. His delirium, encephalopathy, mild psychosis have all resolved. This was most likely a mild case of delirium related to alcohol withdrawal. I suspect he is at his baseline. There is a severe focal narrowing of the proximal right ICA (90%, according to CTA) but no downstream cerebral ischemia. Vascular surgery has evaluated him. PLAN: 1. Agree with avoiding the baclofen 2. On CIWA protocol 3. Continue the thiamine 100 mg twice daily 4. No other recommendations from neurology at this time Documented By: Eriberto Stover DO 03/15/24 1438 Signed By: <Electronically signed by Eriberto Stover DO> 03/15/24 1440 [facility] Work Phone: 1(209) 753-337511-01-2024 Consult note Author Baudilio Moura [facility] March 15, 2024 2:05pm Note Date/Time March 14, 2024 8 :44am [facility] [address] [place] [address] Vascular Surgery Consult Note Signed Patient: Mary Mcadams MR#: [id number] : 1955 Acct:[id number] Age/Sex: 68 / M Adm Date: 4 Loc: Room: [address] [place] [address] Type: ADM IN Attending Dr: Altaf Jones MD Copies to: MD Adam Carballo DO Jackie R Ruttino, APRN Matthew T Langenberg, MD~ HPI Consult HPI Reason for consult: ICA stenosis History of present illness: Mr. Mcadams is a 68-year-old male with medical history to include A- fib, sarcoidosis, hypertension, systolic heart failure, cardiomyopathy, and alcohol abuse transferred here from the [facility] for altered mental status. Reportedly the patient had been experiencing radiating chest pain for the past week. He had a cardioversion approximately 2 weeks ago. No other recent illness reported. His son reportedly walked into the house yesterday andfound him hunched over the coffee table. The son reports having a voicemail from the home health physical therapy earlier in the day saying that during her visit the patient was having difficulty staying awake while she was there earlier in the day. During workup through [facility] a CTA of the head and neck showed marked atherosclerotic narrowing of the right proximal ICA with up to 90% stenosis. Vascular surgery has been consulted for further evaluation andmanagement. This morning on my rounds he was difficult to wake up, unable to answer any of my questioning, and appeared very drowsy. Bedside nursing states he was given 2 of Ativan p.o. this morning at 6:00 and prior to that had been a bit more lucid. cc:: CC: Altaf Jones MD Data of Consult Consult date: 03/14/2024 Requesting Physician: Altaf Jones MD Review of Systems Review of Systems All other systems reviewed & are negative unless noted below or in HPI [facility] Medical History Carotid stenosis, right CTA: 90% right ICA - 02/2024 Alcohol dependence Atrial fibrillation Pulmonary sarcoidosis Hypertension History of cardioversion Abdominal pain Rectal bleeding Cardiac sarcoidosis Bullous emphysema History of aspergilloma Benign prostatic hyperplasia with lower urinary tract symptoms Acoustic neuroma Chronic HFrEF (heart failure with reduced ejection fraction) Lumbar spondylosis Gastroesophageal reflux disease with esophagitis without hemorrhage Diverticulosis Personal history of colonic polyps Chronic respiratory failure with hypoxia Nonischemic cardiomyopathy Echo: LVEF 45-50%, normal RV size/function, mild aortic root dilatation 4.0 cm - 02/2024 Hyponatremia Surgical History H/O colonoscopy (~10/2021) repeat 5 years History of arthroscopic knee surgery Family History Brother Heart disease Legacy FamHx Relation: Brother(s) Father Cancer Legacy FamHx Problem: Diagnosed with Cancer Mother Heart disease Myocardial infarction Diabetes Social History Smoking Status: Never smoker Substance Use Type: Alcohol Substance Abuse Comment: reports 4-5 beers daily Social History Comments: Son and son's significant other Allergies & Active Medications Medications and Allergies Allergies No Known Allergies Allergy (Verified 03/08/24 13:25) Exam Physical Exam Vital Signs: Temp Pulse Resp BP Pulse Ox O2 Del Method O2 Flow Rate 97.9 F 87 16 158/102 H 97 Nasal Cannula 2 03/13/24 20:52 03/14/24 04:00 03/14/24 04:00 03/14/24 04:00 03/14/24 04:00 03/14/24 04:00 03/14/24 04:00 Narrative: 68-year-old male, quite sleepy and difficult to arouse. Unable to answer any of my questioning this morning. Nursing was informed. Reportedly patient had 2 mg of Ativan p.o. this morning at around 6:00. Results - Vascular Surgery Labs 03/14/24 04:52 03/15/24 05:10 Labs: Laboratory Results - last 24 hr 03/14/24 03/14/24 02:45 04:52 Corrected WBC 7.8 Uncorrected WBC Count 7.8 RBC 3.79 L Hgb 11.3 L Hct 33.9 L MCV 89.3 MCH 29.7 MCHC 33.3 RDW 13.5 Plt Count 290 MPV 8.0 Neut % (Auto) 76.4 Lymph % (Auto) 8.5 Dickinson % (Auto) 11.6 Eos % (Auto) 2.3 Baso % (Auto) 1.2 Nucleat RBC Rel Count 0.1 Neut # (Auto) 6.0 Lymph # (Auto) 0.7 L Dickinson # (Auto) 0.9 H Eos # (Auto) 0.2 Baso # (Auto) 0.1 PHA Creatinine Clear 88.87 Sodium 134 L Potassium 4.0 Chloride 101 Carbon Dioxide 26.0 Anion Gap 11.0 BUN 12 Creatinine 0.71 Est GFR (CKD-EPI) > 60.0 Glucose 96 Calcium 8.4 L Magnesium 1.8 L Urine Color Yellow Urine Appearance Clear Urine pH 5.5 Ur Specific Mcintosh 1.046 H Urine Protein 70 H Urine Glucose (UA) Normal Urine Ketones Negative Urine Occult Blood 2+ H Urine Nitrite Negative Urine Bilirubin Negative Urine Urobilinogen Normal Ur Leukocyte Esterase 3+ H Urine RBC 50-100 H Urine WBC 50-100 H Urine WBC Clumps Occasional H Ur Squamous Epith Cells N/A Urine Bacteria 1+ H Hyaline Casts None Urine Mucus Rare A&P - Vascular (1) Encephalopathy acute: (2) Atrial fibrillation: Qualifiers: Atrial fibrillation type: paroxysmal Qualified Code(s): I48.0 - 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 (3) Alcohol dependence: (4) Abdominal pain: Qualifiers: Abdominal location: upper abdomen, unspecified Qualified Code(s): R10.10 - Upper abdominal pain, unspecified (5) Chronic HFrEF (heart failure with reduced ejection fraction): (6) Hypertension: Qualifiers: Hypertension type: primary hypertension Qualified Code(s): I10 - Essential (primary) hypertension (7) Pulmonary sarcoidosis: (8) Carotid stenosis, right: Plan Patient with 90% stenosis on CTA of the head and neck obtained in [place]. I did order ultrasound for additional modality of evaluation of his carotid stenosis. The patient is quite sleepy and hard to arouse this morning, 2 mg of Ativan was given around 6 AM, patient appears overmedicated. Nursing was notified and brought to bedside. We will see the patient again after the ultrasound is obtained to discuss further treatment needs based on all studies. Hopefully there will be some family around at that time. Patient would benefit from antiplatelet and statin medications. This is Dr. Moura dictating. I did see and evaluate this patient both on the day of the consult and March 15. The patient is feeling much better today. He is more lucid. I had a discussion with this patient about his carotid stenoses and the plan. I recommend conservative, nonoperative management with risk factor modification aspirin and statin. Will see him in the office in 6 to 8 weeks for follow-up. All his questions were addressed. Heunderstands agrees the plan. There is no indication for any surgical intervention at this time. Vascular surgery will sign off. Documented By: Lula Muniz APRN 03/14/24 0 839 Signed By: <Electronically signed by CHARLEY Muniz> 03/14/24 0844 <Electronically signed by Baudilio Moura MD> 03/15/24 1405 [facility] Work Phone: 1(809) 571-320211-01-2024 Progress note Author Altaf Jones [facility] March 15, 2024 12:33pm Note Date/Time March 15, 2024 1 2:32pm [facility] [address] [place] [address] Hospitalist Progress Note Signed Patient: Mary Mcadams MR#: [id number] : 1955 Acct:[id number] Age/Sex: 68 / M Adm Date: 4 Loc: 4P Room: 4V3321-4 Type: ADM IN Attending Dr: Altaf Jones MD Copies to: ~ Date of Service: 03/15/2024 Subjective Subjective Narrative: Patient is awake alert oriented x 3. Respiratory distress today. Lungs are clear today. Heart is regular, no gallop or JVD Abdomen soft benign Neurological as noted. No evidence of focal neurological deficit Assessment and plan 1. Acute decompensated CHF. Responded well to diuretic therapy. [id number] ultrasound shows improvement in LVEF. Canceled limited echo ordered yesterday Sal[place] catheter was inserted for urinary retention. Continue to monitor daily renal function electrolytes urine output De-escalate steroids diuretics IV to twice a day 2. COPD exacerbation. Patient with chronic history of pulmonary sarcoidosis Continue bronchodilators and systemic steroids. Pulmonary exam much improved today. 3. Severe proximal right internal carotid artery stenosis Revascularization will be scheduled as outpatient in the near future. Continue aspirin and patient is already on Xarelto for A-fib 4. Confusional state. Does not appear to be too serious at this time. Probably some delirium due to multiple coexistent issues including mild alcohol withdrawal. Resolved. Mental status appears to be at baseline. MRI brain negative for acute stroke. 5. Atrial fibrillation on amiodarone. Remains in A-fib. Will reach out to cardiology to determine whether or not the therapy of amiodarone is still indicated. Anticoagulated with Xarelto as noted. 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 Daily alcohol use History of acoustic neuroma GERD BPH Exam Physical Exam Vital Signs: Temp Pulse Resp BP Pulse Ox O2 Del Method O2 Flow Rate 98.1 F 92 18 120/64 96 Nasal Cannula 2 03/15/24 08:00 03/15/24 10:25 03/15/24 10:25 03/15/24 08:00 03/15/24 08:00 03/15/24 10:00 03/15/24 10:00 Objective Lab Results 03/14/24 04:52 03/15/24 05:10 Microbiology Results Microbiology 03/14/24 02:45 Urine - Salinas Catheter Urine Culture - Preliminary Meds Allergies and Active Meds Allergies No Known Allergies Allergy (Verified 03/08/24 13:25) Active Meds: Active Medications Generic Name Dose Route Start Last Admin Trade Name Angela PRN Reason Stop Dose Admin Acetaminophen 1,000 mg 03/13/24 21:06 03/14/24 21:42 Acetaminophen 500 Mg Tablet PO 03/13/25 21:05 1,000 mg Q6HR PRN Administration Pain Scale 1 - 3 or fever Al Hydrox/Mg Hydrox/Simethicone 30 ml 03/13/24 21:06 Mag Hydrox/Al Hydrox/Simeth 30 Ml Udc PO 03/13/25 21:05 Q4H PRN Indigestion Albuterol/Ipratropium 3 ml 03/14/24 10:30 03/15/24 10:18 Ipratropium/Albuterol 0.5-3 Mg 3 Ml Ampul.Neb INHALATION 03/14/25 10:29 3 ml Q4HR ALEX Administration Amiodarone HCl 200 mg 03/13/24 23:00 03/15/24 09:33 Amiodarone 200 Mg Tablet PO 03/13/25 22:59 200 mg BID ALEX Administration Aspirin 81 mg 03/14/24 09:00 03/15/24 09:33 Aspirin 81 Mg Tablet. PO 03/14/25 08:59 81 mg DAILY ALEX Administration Atorvastatin Calcium 40 mg 03/14/24 21:00 03/14/24 21:42 Atorvastatin 40 Mg Tablet PO 03/14/25 20:59 40 mg QPM ALEX Administration Bisacodyl 10 mg 03/14/24 02:07 03/15/24 04:58 Bisacodyl 5 Mg Tablet. PO 03/14/25 02:06 10 mg DAILY PRN Administration Constipation Budesonide/Formoterol Fumarate 2 puff 03/14/24 09:00 03/15/24 10:18 Budesonide/Formoterol 160-4.5 Mcg 60 Puff/6 Gm Hfa.Aer.Ad INHALATION 03/14/25 08:59 2 puff BID ALEX Administration Carvedilol 12.5 mg 03/13/24 23:00 03/15/24 09:33 Carvedilol 12.5 Mg Tablet PO 03/13/25 22:59 12.5 mg BID ALEX Administration Finasteride 5 mg 03/14/24 09:00 03/15/24 09:32 Finasteride 5 Mg Tablet PO 03/14/25 08:59 5 mg DAILY ALEX Administration Fluticasone Propionate 1 spray 03/14/24 09:00 03/15/24 09:41 Fluticasone Propionate [place] 120 [place]bank/16 Gm Bottle INTRANASAL 03/14/25 08:59 Not Given DAILY ALEX Folic Acid 1 mg 03/14/24 09:00 03/15/24 09:33 Folic Acid 1 Mg Tablet PO 03/14/25 08:59 1 mg DAILY ALEX Administration Furosemide 40 mg 03/15/24 16:00 Furosemide 40 Mg/4 Ml Vial IV-PUSH 03/15/25 15:59 BID@0800,1600 ALEX Hydromorphone HCl 0.5 mg 03/14/24 02:27 Hydromorphone 0.5 Mg/0.5 Ml Syringe IV-PUSH Q4H PRN Pain Scale 8 - 10 Latanoprost 1 drops 03/14/24 22:00 03/14/24 22:32 Latanoprost 0.005% Op Soln 50 Drops/2.5 Ml Bottle EYE-BOTH 03/14/25 21:59 1drops HS ALEX Administration Lorazepam 0 mg 03/13/24 21:06 03/14/24 05:56 Lorazepam 1 Mg Tablet PO 09/09/24 21:05 2 mg PROTOCOL PRN Administration Alcohol Withdrawal Protocol Lorazepam 0 mg 03/13/24 21:06 Lorazepam 2 Mg/Ml Vial IV-PUSH 09/09/24 21:05 PROTOCOL PRN Alcohol Withdrawal Protocol Methylprednisolone 32 mg 03/14/24 10:45 03/15/24 09:32 Methylprednisolone 16 Mg Tablet PO 03/14/25 10:44 32 mg QAM ALEX Administration Multivitamins 1 tab 03/14/24 09:00 03/15/24 09:33 Multivitamin 1 Tab Tablet PO 03/14/25 08:59 1 tab DAILY ALEX Administration Ondansetron HCl 4 mg 03/13/24 21:06 Ondansetron 4 Mg/2 Ml Vial IV-PUSH 03/13/25 21:05 Q8H PRN Nausea And Vomiting Pantoprazole Sodium 40 mg 03/14/24 07:30 03/15/24 09:33 Pantoprazole 40 Mg Tablet.Dr PO 03/14/25 07:29 40 mg DAILY.AC.BKFAST ALEX Administration Rivaroxaban 20 mg 03/14/24 08:00 03/15/24 09:33 Rivaroxaban 20 Mg Tablet PO 03/14/25 07:59 20 mg DAILY.WITH.BKFAST ALEX Administration Sacubitril/Valsartan 1 tab 03/13/24 23:00 03/15/24 09:33 Sacubitril/Valsartan 24-26mg 1 Tab Tablet PO 03/13/25 22:59 1 tab BID ALEX Administration Senna/Docusate Sodium 2 tab 03/14/24 09:00 03/15/24 09:32 Sennosides/Docusate 8.6-50mg 1 Tab Tablet PO 03/14/25 08:59 2 tab BID ALEX Administration Sodium Chloride 0 ml 03/13/24 22:00 03/15/24 06:04 Sodium Chloride 0.9 % 10 Ml Syringe IV-PUSH 03/13/25 21:59 Not Given QSHIFT ALEX Tamsulosin HCl 0.4 mg 03/14/24 09:00 03/15/24 09:33 Tamsulosin 0.4 Mg Cap.Er.24h PO 03/14/25 08:59 0.4 mg BID ALEX Administration Thiamine HCl 100 mg 03/14/24 09:00 03/15/24 09:33 Thiamine 100 Mg Tablet PO 03/14/25 08:59 100 mg BID ALEX Administration Tramadol HCl 50 mg 03/13/24 21:06 03/13/24 22:31 Tramadol 50 Mg Tablet PO 09/09/24 21:05 50 mg Q6H PRN Administration Pain Scale 4 - 7 A&P - Hospitalist Assessment/Plan (1) Encephalopathy acute: (2) Atrial fibrillation: (3) Alcohol dependence: (4) Abdominal pain: (5) Chronic HFrEF (heart failure with reduced ejection fraction): (6) Hypertension: (7) Pulmonary sarcoidosis: (8) Carotid stenosis, right: Plan Acute encephalopathy ? He was started on baclofen last Monday per PCP, has also abstained from alcohol since last Monday?will hold baclofen ? Will check UA for infection, no leukocytosis on CBC noted, no reports of subjective fever or chills ? IV hydration overnight? LR @ 75cc/hr x 1L ? MRI of the brain in a.m. ? Consult neurology in am Right carotid stenosis found on CTA head and neck ? Consult vascular surgery in am Alcohol dependence ? CIWA protocol?p.o. and IV Ativan ? MVI, folic acid, thiamine Abdominal pain?epigastric ? CT abd/pelvis - Tramadol as needed A-fib ? EKG on arrival ? Continue amiodarone, rivaroxaban Chronic conditions HTN?carvedilol BPH?tamsulosin, finasteride Systolic heart failure?Entresto Pulmonary sarcoidosis?albuterol as needed DVT PPx?SCDs, rivaroxaban Diet order?heart healthy CODE STATUS?full code Documented By: Altaf Jones MD 03/15/24 1230 Signed By: <Electronically signed by Altaf Jones MD> 03/15/24 1233 [facility] Work Phone: 1(331) 940-642510-31-2024 Consult note Author Eriberto Stover [facility] March 14, 2024 2:34pm Note Date/Time March 14, 2024 1 :09pm [facility] [address] [place] [address] Neurology Consult Note Signed Patient: Mary Mcadams MR#: [id number] : 1955 Acct:[id number] Age/Sex: 68 / M Adm Date: 4 Loc: Room: [address] [place] [address] Type: ADM IN Attending Dr: Altaf Jones MD Copies to: DO Altaf Morton MD Benjamin Ball, DO~ HPI Consult Date: 03/14/24 Buffet Attendant: Eriberto Stover DO [facility] Medical History Carotid stenosis, right CTA: 90% right ICA - 02/2024 Alcohol dependence Atrial fibrillation Pulmonary sarcoidosis Hypertension History of cardioversion Abdominal pain Rectal bleeding Cardiac sarcoidosis Bullous emphysema History of aspergilloma Benign prostatic hyperplasia with lower urinary tract symptoms Acoustic neuroma Chronic HFrEF (heart failure with reduced ejection fraction) Lumbar spondylosis Gastroesophageal reflux disease with esophagitis without hemorrhage Diverticulosis Personal history of colonic polyps Chronic respiratory failure with hypoxia Nonischemic cardiomyopathy Echo: LVEF 45-50%, normal RV size/function, mild aortic root dilatation 4.0 cm - 02/2024 Hyponatremia Surgical History H/O colonoscopy (~10/2021) repeat 5 years History of arthroscopic knee surgery Family History Brother Heart disease Legacy FamHx Relation: Brother(s) Father Cancer Legacy FamHx Problem: Diagnosed with Cancer Mother Heart disease Myocardial infarction Diabetes Social History Smoking Status: Never smoker Substance Use Type: Alcohol Substance Abuse Comment: reports 4-5 beers daily Social History Comments: Son and son's significant other Meds Medications and Allergies Allergies No Known Allergies Allergy (Verified 03/08/24 13:25) Home Medications sacubitril 24 mg-valsartan 26 mg tablet (Entresto) 1 tab PO BID 05/11/18 [History Confirmed 03/08/24] albuterol sulfate 2.5 mg/3 mL (0.083 %) solution for nebulization 2.5 mg inhalation QID 09/08/23 [History Confirmed 03/08/24] finasteride 5 mg tablet 5 mg PO DAILY 09/08/23 [History Confirmed 03/08/24] fluticasone propionate 50 mcg/actuation nasal spray,suspension 1 spray intranasal DAILY 09/08/23 [History Confirmed 03/08/24] tamsulosin 0.4 mg capsule 0.4 mg PO BID 09/08/23 [History Confirmed 03/08/24] latanoprost 0.005 % eye drops 1 drp ophthalmic (eye) DAILY 10/12/23 [History Confirmed 03/08/24] Oxygen 10/23/23 [History Confirmed 03/08/24] albuterol sulfate 90 mcg/actuation aerosol inhaler See Rx Instructions .Route .COMPLEX #18 grams 10/23/23 [Rx Confirmed 03/08/24] fluticasone fur. 200 mcg-umeclid 62.5 mcg-vilant 25 mcg inhalat.powder (Trelegy Ellipta) 1 inh inhalation DAILY #180 ea 10/23/23 [Rx Confirmed 03/08/24] ipratropium 0.5 mg-albuterol 3 mg (2.5 mg base)/3 mL nebulization soln 3 ml inhalation QID 30 days #360 mL 01/30/24 [Rx Confirmed 03/08/24] fluticasone 500 mcg-salmeterol 50 mcg/dose blistr powdr for inhalation inhalation 02/02/24 [History Confirmed 03/08/24] rivaroxaban 20 mg tablet (Xarelto) 20 mg PO DAILY.WITH.BKFAST 30 days #30 tabs 02/04/24 [Rx Confirmed 03/08/24] carvedilol 12.5 mg tablet 12.5 mg PO BID 30 days #60 tabs 02/14/24 [Rx Confirmed 03/08/24] pantoprazole 40 mg tablet,delayed release See Rx Instructions .Route .COMPLEX #90 tabs 02/18/24 [Rx Confirmed 03/08/24] amiodarone 200 mg tablet 200 mg PO BID 30 days #60 tabs 03/01/24 [Rx Confirmed 03/08/24] amiodarone 200 mg tablet 400 mg (2 x 200 mg) PO BID 7 days #28 tabs 03/01/24 [Rx Confirmed 03/08/24] baclofen 10 mg tablet 10 mg PO QID PRN muscle spasm 7 days #28 tabs 03/08/24 [Rx Confirmed 03/08/24] Exam Physical Exam Vital Signs: Temp Pulse Resp BP Pulse Ox O2 Del Method O2 Flow Rate 98.1 F 88 16 149/93 H 97 Nasal Cannula 2 03/14/24 11:25 03/14/24 12:55 03/14/24 12:55 03/14/24 11:25 03/14/24 11:25 03/14/24 11:25 03/14/24 11:25 Results - Neuro Laboratory Findings 03/14/24 04:52 03/14/24 04:52 Diagnostic Findings Imaging/Impressions: ITS Impressions Abdomen/Pelvis CT 03/13/24 22:23 IMPRESSION: No acute findings. Basilar lung changes of sarcoidosis. [place] catheter in urinary bladder. Wall thickening of urinary bladder. Underdistention versus cystitis. Colonic diverticulosis. Mild constipation. Impression dictated by: Grupo Chen M.D.03/13/2024 11:57 PM Dictation Location: [place] [address] Therapy Recommendations Therapy Recommendations: OT Recommendations OT Recommended Discharge Assisted Facility,Inpatient Rehab Unit Location OT Recommended Services at Physical Therapy,Occupational Therapy Discharge PT Recommendations PT Recommended Discharge Assisted Facility,Inpatient Rehab Unit Location PT Recommended Services at Physical Therapy,Occupational Therapy Discharge Assessment/Plan (1) Encephalopathy acute: Plan CONSULT REASON: Encephalopathy HPI: 68-year-old man with history of atrial fibrillation, pulmonary sarcoidosis, hypertension, nonischemic cardiomyopathy, heart failure, daily alcohol use. Last alcoholic drink suspected to be Monday? He says he had cut down gradually on how much he drank, and prior to stopping he was only having 6 Jeremiah lights per day he estimates. Son found him hunched over a coffee table. The patient said he fell off a couch and hit his head and may have lost consciousness. Homehealth aide said that he was having difficulty staying awake when she was there working with him in the morning. Not acting his normal self. Said to stop drinking alcohol within the last 3 to 5 days. Medical history said to include acoustic neuroma. Home medications include Entresto, finasteride, tamsulosin, rivaroxaban, carvedilol, pantoprazole, amiodarone, baclofen. Baclofen was reportedly a new medication started last Monday. It has been held here. At the time of my encounter, he is wide-awake and easily holds a conversation. He says his chest is still his biggest concern, as he seems to have tightness and pain in different parts of the chest at different times. He has associated shortness of breath with that. I noticed a head tremor and he says he has had that chronically to some extent. He mentions that he has been having visual hallucinations. He mentioned at home that he has a column in his living room and he kept getting glances of what he thought was his son but his son was not there at that time. And then in the hospital room overnight he kept thinking somebody was fiddling with the lights or something over by the doorway. No auditory hallucinations. EXAMINATION: In no distress. No deformities or trauma. Limbs seem well-perfused. No significant edema. Normal work of breathing. Nasal cannula in place. Visualized skin is generally intact and without lesions aside from age-related findings. Affect normal. Patient is alert. Oriented to [facility] and February and . Attention seems only minimally impaired. Speech is fluent and nondysarthric. Pupils are equal. Gaze is disconjugate, right eye mild exotropia. But ocular motility is full. No nystagmus. Facial sensation is normal. Hearing is normal. Facial strength is normal. Tongue is midline. Muscle bulk, tone, and strength are normal. Mild postural tremors bilateral upper extremities and head tremor. Reflexes hypoactive throughout. Light touch is normal. Vibratory sensation is absent in bilateral feet but otherwise intact. No limb dysmetria or ataxia. DATA REVIEW: -CTA of head and neck showed 90% narrowing right proximal ICA -MRI brain March 14, 2024 looks unremarkable for acute process ASSESSMENT: 68-year-old man who is alcohol dependent, recently he says he was drinking a sixpack of beer per day which is a lot less than he had been drinking, and then reportedly on Monday he stopped drinking altogether because he was concerned about chest symptoms he was having. He was found after what looked like a fall and had altered mental status. I cannot completely rule out the possibility of an alcohol withdrawal related seizure as playing a role with the fall. MRI of his brain does not show any potential seizure nidus and if he had a seizure, I think it was provoked by alcohol withdrawal. He has delirium and encephalopathy with some associated mild psychosis (visual hallucinations). This is most likely a mild case of delirium related to alcoholwithdrawal. This seems to all be gradually improving. He was alert and oriented for me. There is a severe focal narrowing of the proximal right ICA (90%, according to CTA) but no downstream cerebral ischemia. PLAN: 1. Agree with avoiding the baclofen 2. On CIWA protocol 3. Continue the thiamine 100 mg twice daily Documented By: Eriberto Stover DO 03/14/24 1302 Signed By: <Electronically signed by Eriberto Stover DO> 03/14/24 1231 [facility] Work Phone: 1(213) 798-783710-31-2024 Progress note Author Altaf Jones [facility] March 14, 2024 1:29pm Note Date/Time March 14, 2024 1 :27pm [facility] [address] [place] [address] Hospitalist Progress Note Signed Patient: Mary Mcadams MR#: [id number] : 1955 Acct:[id number] Age/Sex: 68 / M Adm Date: 4 Loc: Room: [address] [place] [address] Type: ADM IN Attending Dr: Altaf Jones MD Copies to: ~ Date of Service: 03/14/2024 Subjective Subjective Narrative: Patient is awake alert oriented x 3. He appears in mild respiratory distress. On examination expiratory wheezes audible bilaterally. JVD present bilaterally. Nciuy-go-[id number] ultrasound is notable for decreased ejection fraction and increased intravenous pressure Abdomen soft benign Neurological as noted. No evidence of focal neurological deficit Assessment and plan 1. Acute decompensated CHF. POCUS indicates an ejection fraction that is seemingly read less than the reported previously 45 to 50%. Will obtain a formal echo Diuretic therapy with IV furosemide 2. COPD exacerbation. Patient with chronic history of pulmonary sarcoidosis Initiate bronchodilators and systemic steroids 3. Severe proximal right internal carotid artery stenosis Further management per vascular surgery 4. Confusional state. Does not appear to be too serious at this time. Probably some delirium due to multiple coexistent issues. Neurology consultation is pending. MRI brain was obtained, I looked at the images I do not see any evidence of an acute cerebrovascular large event. 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 Daily alcohol use History of acoustic neuroma GERD BPH Exam Physical Exam Vital Signs: Temp Pulse Resp BP Pulse Ox O2 Del Method O2 Flow Rate 98.1 F 88 16 149/93 H 97 Nasal Cannula 2 03/14/24 11:25 03/14/24 12:55 03/14/24 12:55 03/14/24 11:25 03/14/24 11:25 03/14/24 11:25 03/14/24 11:25 Objective Lab Results 03/14/24 04:52 03/14/24 04:52 Meds Allergies and Active Meds Allergies No Known Allergies Allergy (Verified 03/08/24 13:25) Active Meds: Active Medications Generic Name Dose Route Start Last Admin Trade Name Freq PRN Reason Stop Dose Admin Acetaminophen 1,000 mg 03/13/24 21:06 Acetaminophen 500 Mg Tablet PO 03/13/25 21:05 Q6HR PRN Pain Scale 1 - 3 or fever Al Hydrox/Mg Hydrox/Simethicone 30 ml 03/13/24 21:06 Mag Hydrox/Al Hydrox/Simeth 30 Ml Udc PO 03/13/25 21:05 Q4H PRN Indigestion Albuterol/Ipratropium 3 ml 03/14/24 10:30 03/14/24 13:02 Ipratropium/Albuterol 0.5-3 Mg 3 Ml Ampul.Neb INHALATION 03/14/25 10:29 3 ml Q4HR ALEX Administration Amiodarone HCl 200 mg 03/13/24 23:00 03/14/24 10:08 Amiodarone 200 Mg Tablet PO 03/13/25 22:59 200 mg BID ALEX Administration Aspirin 81 mg 03/14/24 09:00 03/14/24 10:08 Aspirin 81 Mg Tablet. PO 03/14/25 08:59 81 mg DAILY ALEX Administration Atorvastatin Calcium 40 mg 03/14/24 21:00 Atorvastatin 40 Mg Tablet PO 03/14/25 20:59 QPM ALEX Bisacodyl 10 mg 03/14/24 02:07 Bisacodyl 5 Mg Tablet. PO 03/14/25 02:06 DAILY PRN Constipation Budesonide/Formoterol Fumarate 2 puff 03/14/24 09:00 03/14/24 10:14 Budesonide/Formoterol 160-4.5 Mcg 60 Puff/6 Gm Hfa.Aer.Ad INHALATION 03/14/25 08:59 Not Given BID ALEX Carvedilol 12.5 mg 03/13/24 23:00 03/14/24 10:08 Carvedilol 12.5 Mg Tablet PO 03/13/25 22:59 12.5 mg BID ALEX Administration Finasteride 5 mg 03/14/24 09:00 03/14/24 10:36 Finasteride 5 Mg Tablet PO 03/14/25 08:59 5 mg DAILY ALEX Administration Fluticasone Propionate 1 spray 03/14/24 09:00 03/14/24 10:36 Fluticasone Propionate [place] 120 [place]bank/16 Gm Bottle INTRANASAL 03/14/25 08:59 1 spray DAILY ALEX Administration Folic Acid 1 mg 03/14/24 09:00 03/14/24 10:08 Folic Acid 1 Mg Tablet PO 03/14/25 08:59 1 mg DAILY ALEX Administration Furosemide 40 mg 03/14/24 10:30 03/14/24 10:35 Furosemide 40 Mg/4 Ml Vial IV-PUSH 03/14/25 10:29 40 mg Q8H ALEX Administration Hydromorphone HCl 0.5 mg 03/14/24 02:27 Hydromorphone 0.5 Mg/0.5 Ml Syringe IV-PUSH Q4H PRN Pain Scale 8 - 10 Latanoprost 1 drops 03/14/24 22:00 Latanoprost 0.005% Op Soln 50 Drops/2.5 Ml Bottle EYE-BOTH 03/14/25 21:59 HS ALEX Lorazepam 0 mg 03/13/24 21:06 03/14/24 05:56 Lorazepam 1 Mg Tablet PO 09/09/24 21:05 2 mg PROTOCOL PRN Administration Alcohol Withdrawal Protocol Lorazepam 0 mg 03/13/24 21:06 Lorazepam 2 Mg/Ml Vial IV-PUSH 09/09/24 21:05 PROTOCOL PRN Alcohol Withdrawal Protocol Methylprednisolone 32 mg 03/14/24 10:45 03/14/24 10:35 Methylprednisolone 16 Mg Tablet PO 03/14/25 10:44 32 mg QAM ALEX Administration Multivitamins 1 tab 03/14/24 09:00 03/14/24 10:08 Multivitamin 1 Tab Tablet PO 03/14/25 08:59 1 tab DAILY ALEX Administration Ondansetron HCl 4 mg 03/13/24 21:06 Ondansetron 4 Mg/2 Ml Vial IV-PUSH 03/13/25 21:05 Q8H PRN Nausea And Vomiting Pantoprazole Sodium 40 mg 03/14/24 07:30 03/14/24 10:49 Pantoprazole 40 Mg Tablet.Dr PO 03/14/25 07:29 Not Given DAILY.AC.BKFAST ALEX Rivaroxaban 20 mg 03/14/24 08:00 03/14/24 10:35 Rivaroxaban 20 Mg Tablet PO 03/14/25 07:59 20 mg DAILY.WITH.BKFAST ALEX Administration Sacubitril/Valsartan 1 tab 03/13/24 23:00 03/14/24 10:08 Sacubitril/Valsartan 24-26mg 1 Tab Tablet PO 03/13/25 22:59 1 tab BID ALEX Administration Senna/Docusate Sodium 2 tab 03/14/24 09:00 03/14/24 10:08 Sennosides/Docusate 8.6-50mg 1 Tab Tablet PO 03/14/25 08:59 2 tab BID ALEX Administration Sodium Chloride 0 ml 03/13/24 22:00 03/14/24 06:53 Sodium Chloride 0.9 % 10 Ml Syringe IV-PUSH 03/13/25 21:59 Not Given QSHIFT ALEX Tamsulosin HCl 0.4 mg 03/14/24 09:00 03/14/24 10:08 Tamsulosin 0.4 Mg Cap.Er.24h PO 03/14/25 08:59 0.4 mg BID ALEX Administration Thiamine HCl 100 mg 03/14/24 09:00 03/14/24 10:08 Thiamine 100 Mg Tablet PO 03/14/25 08:59 100 mg BID ALEX Administration Tramadol HCl 50 mg 03/13/24 21:06 03/13/24 22:31 Tramadol 50 Mg Tablet PO 09/09/24 21:05 50 mg Q6H PRN Administration Pain Scale 4 - 7 A&P - Hospitalist Assessment/Plan (1) Encephalopathy acute: (2) Atrial fibrillation: (3) Alcohol dependence: (4) Abdominal pain: (5) Chronic HFrEF (heart failure with reduced ejection fraction): (6) Hypertension: (7) Pulmonary sarcoidosis: (8) Carotid stenosis, right: Plan Acute encephalopathy ? He was started on baclofen last Monday per PCP, has also abstained from alcohol since last Monday?will hold baclofen ? Will check UA for infection, no leukocytosis on CBC noted, no reports of subjective fever or chills ? IV hydration overnight? LR @ 75cc/hr x 1L ? MRI of the brain in a.m. ? Consult neurology in am Right carotid stenosis found on CTA head and neck ? Consult vascular surgery in am Alcohol dependence ? CIWA protocol?p.o. and IV Ativan ? MVI, folic acid, thiamine Abdominal pain?epigastric ? CT abd/pelvis - Tramadol as needed A-fib ? EKG on arrival ? Continue amiodarone, rivaroxaban Chronic conditions HTN?carvedilol BPH?tamsulosin, finasteride Systolic heart failure?Entresto Pulmonary sarcoidosis?albuterol as needed DVT PPx?SCDs, rivaroxaban Diet order?heart healthy CODE STATUS?full code Documented By: Altaf Jones MD 03/14/24 1320 Signed By: <Electronically signed by Altaf Jones MD> 03/14/24 1328 [facility] Work Phone: [phone]) 949-807810-31-2024 History and physical note Author Mohamad Giuliano [facility] March 14, 2024 4:28am Note Date/Time March 13, 2024 9 :16pm [facility] [address] [place] [address] Hospitalist H&P Signed Patient: Mary Mcadams MR#: [id number] : 1955 Acct:[id number] Age/Sex: 68 / M Adm Date: 4 Loc: Room: [address] [place] [address] Type: ADM IN Attending Dr: Gabriela Nobles MD Copies to: DO Gabriela Waller MD Paula G Smith, WRAP CHECKER~ HPI DATE OF EXAMINATION: 03/13/24 CHIEF COMPLAINT: altered mental status HISTORY OF PRESENT ILLNESS: Mr. Mcadams is a 68-year-old male with a PMH of A-fib, pulmonary sarcoidosis, HTN, systolic heart failure?last EF 45 to 50%, nonischemic cardiomyopathy, dailyalcohol use?last drink Monday the presented to [facility] emergency room for altered mental status. Patient seen and examined at bedside upon transfer. Patient reports he has been having chest pain that radiated to different areas for the last week. Has not felt well since his cardioversion 2 weeks ago. He denies any increased shortness of breath, reports he is always short of breath. Has been wearing oxygen at all times since last Monday and had not left his house since his doctor's appointment. He denies fever, chills, nausea or vomiting, does complain of constipation. Son states that he walked into his house today and found him hunched over a coffee table. Patient reports that he fell off the couch this morning and hit his head and possibly may have had loss of consciousness. Son states they found a voicemail from home health physical therapy, she reported to him that the patient was having difficulty staying awake this morning while she was there. [facility] chart review?EMS was dispatched to the patient's house for chest pains, upon arrival and found patient sitting on couch groaning loudly. EMS reports son was present and reported making the patient's stop drinking last due to ongoing cardiac issues. Note states patient was oriented but could not remain focused, EKG shows A-fib. Upon arrival to [facility] emergency room patient was alert and oriented to time and place, knew who his family was but thought the year was 2020. CT of the head showed no acute process, chronic microvascular changes, right mastoiditis and otitis media. CTAof the head showed no intracranial hemorrhage, aneurysm or significant vessel narrowing. CTA of the neck showed marked atherosclerotic narrowing of the rightproximal internal carotid artery with up to 90% area reduction, patent flow through this area, moderate to marked bilateral pulmonary infiltrates and possibly chronic changes within the lungs. Patient has known history of pulmonary sarcoidosis. CBC with a white blood cell count of 8.7, H&H 11.1/33.4. Coags unremarkable. CMP was unremarkable, albumin low at 2.9. Ammonia 20. Troponin negative at 8.8. Magnesium 1.5. Lipase 29. Urine drug screen positive for opiates, blood alcohol less than 3. He received 1 L saline bolus, [place] 20 mg Tylenol. Transferred here to [facility] under the care of the hospitalist team. Review of Systems Review of Systems Review of systems: A 10 point review of systems was obtained, negative unless noted in the HPI or below. [facility] Medical History (Updated 03/13/24 @ 23:04 by Adam Del Valle DO) Carotid stenosis, right CTA: 90% right ICA - 02/2024 Alcohol dependence Atrial fibrillation Pulmonary sarcoidosis Hypertension History of cardioversion Abdominal pain Afib Rectal bleeding Cardiac sarcoidosis Bullous emphysema History of aspergilloma Benign prostatic hyperplasia with lower urinary tract symptoms Acoustic neuroma Chronic HFrEF (heart failure with reduced ejection fraction) Lumbar spondylosis Gastroesophageal reflux disease with esophagitis without hemorrhage Diverticulosis Personal history of colonic polyps Chronic respiratory failure with hypoxia Nonischemic cardiomyopathy Echo: LVEF 45-50%, normal RV size/function, mild aortic root dilatation 4.0 cm - 02/2024 Hyponatremia Sarcoidosis of lung Surgical History H/O colonoscopy (~10/2021) repeat 5 years History of arthroscopic knee surgery Family History Brother Heart disease Legacy FamHx Relation: Brother(s) Father Cancer Legacy FamHx Problem: Diagnosed with Cancer Mother Heart disease Myocardial infarction Diabetes Social History Smoking Status: Never smoker Substance Use Type: Alcohol Substance Abuse Comment: reports 4-5 beers daily Social History Comments: Son and son's significant other Meds Medications and Allergies Allergies No Known Allergies Allergy (Verified 03/08/24 13:25) Home Medications sacubitril 24 mg-valsartan 26 mg tablet (Entresto) 1 tab PO BID 05/11/18 [History Confirmed 03/08/24] albuterol sulfate 2.5 mg/3 mL (0.083 %) solution for nebulization 2.5 mg inhalation QID 09/08/23 [History Confirmed 03/08/24] finasteride 5 mg tablet 5 mg PO DAILY 09/08/23 [History Confirmed 03/08/24] fluticasone propionate 50 mcg/actuation nasal spray,suspension 1 spray intranasal DAILY 09/08/23 [History Confirmed 03/08/24] tamsulosin 0.4 mg capsule 0.4 mg PO BID 09/08/23 [History Confirmed 03/08/24] latanoprost 0.005 % eye drops 1 drp ophthalmic (eye) DAILY 10/12/23 [History Confirmed 03/08/24] Oxygen 10/23/23 [History Confirmed 03/08/24] albuterol sulfate 90 mcg/actuation aerosol inhaler See Rx Instructions .Route .COMPLEX #18 grams 10/23/23 [Rx Confirmed 03/08/24] fluticasone fur. 200 mcg-umeclid 62.5 mcg-vilant 25 mcg inhalat.powder (Trelegy Ellipta) 1 inh inhalation DAILY #180 ea 10/23/23 [Rx Confirmed 03/08/24] ipratropium 0.5 mg-albuterol 3 mg (2.5 mg base)/3 mL nebulization soln 3 ml inhalation QID 30 days #360 mL 01/30/24 [Rx Confirmed 03/08/24] fluticasone 500 mcg-salmeterol 50 mcg/dose blistr powdr for inhalation inhalation 02/02/24 [History Confirmed 03/08/24] rivaroxaban 20 mg tablet (Xarelto) 20 mg PO DAILY.WITH.BKFAST 30 days #30 tabs 02/04/24 [Rx Confirmed 03/08/24] carvedilol 12.5 mg tablet 12.5 mg PO BID 30 days #60 tabs 02/14/24 [Rx Confirmed 03/08/24] pantoprazole 40 mg tablet,delayed release See Rx Instructions .Route .COMPLEX #90 tabs 02/18/24 [Rx Confirmed 03/08/24] amiodarone 200 mg tablet 200 mg PO BID 30 days #60 tabs 03/01/24 [Rx Confirmed 03/08/24] amiodarone 200 mg tablet 400 mg (2 x 200 mg) PO BID 7 days #28 tabs 03/01/24 [Rx Confirmed 03/08/24] baclofen 10 mg tablet 10 mg PO QID PRN muscle spasm 7 days #28 tabs 03/08/24 [Rx Confirmed 03/08/24] Exam Physical Exam Vital Signs: Temp Pulse Resp BP Pulse Ox O2 Del Method O2 Flow Rate 97.9 F 98 20 175/96 H 98 Nasal Cannula 2 03/13/24 20:52 03/13/24 20:52 03/13/24 20:52 03/13/24 20:52 03/13/24 20:52 03/13/24 20:52 03/13/24 20:52 Narrative: CONST- Appears well -developed, frail, cachectic, bitemporal wasting HEAD - Normocephalic and atraumatic EENT-Sclera nonicteric, conjunctive are non-erythemic, dry oral mucosa, pharynx clear NECK-Supple, no cervical lymphadenopathy CARDIAC-normal rate, irregular rhythm, S1 & S2. PULM-diminished, expiratory wheeze, fine crackles scattered throughout, 4L NC, no accessory muscle use or cough noted ABD - Soft. Bowel sounds are normal. No distention. Slight tenderness to epigastric area, no guarding, no rebound tenderness EXTREM- +2 pitting edema RLE ankle and foot, nontender SKIN- W/D good turgor MS- MAEX4 spontaneously with equal with equal strength- generalized weakness, slight tremors to BUE NEURO- A&Ox3 speech clear and tongue midline, equal facial symmetry, no focal motor deficits, blind in right eye PSYCH-Mood, affect, and behavior appropriate, he is grunting Assessment & Plan Assessment/Plan (1) Encephalopathy acute: (2) Atrial fibrillation: (3) Alcohol dependence: (4) Abdominal pain: (5) Chronic HFrEF (heart failure with reduced ejection fraction): (6) Hypertension: (7) Pulmonary sarcoidosis: (8) Carotid stenosis, right: Plan Acute encephalopathy ? He was started on baclofen last Monday per PCP, has also abstained from alcohol since last Monday?will hold baclofen ? Will check UA for infection, no leukocytosis on CBC noted, no reports of subjective fever or chills ? IV hydration overnight? LR @ 75cc/hr x 1L ? MRI of the brain in a.m. ? Consult neurology in am Right carotid stenosis found on CTA head and neck ? Consult vascular surgery in am Alcohol dependence ? CIWA protocol?p.o. and IV Ativan ? MVI, folic acid, thiamine Abdominal pain?epigastric ? CT abd/pelvis - Tramadol as needed A-fib ? EKG on arrival ? Continue amiodarone, rivaroxaban Chronic conditions HTN?carvedilol BPH?tamsulosin, finasteride Systolic heart failure?Entresto Pulmonary sarcoidosis?albuterol as needed DVT PPx?SCDs, rivaroxaban Diet order?heart healthy CODE STATUS?full code IP vs OBS Justification Based on differential dx, clinical care plan, and risk of adverse events, if untreated, in my clinical judgement this patient requires an acute care setting as: INPATIENT because of an expectation of an over 2 midnight stay. Estimated length of stay (# of days): 3 Documented By: Maricruz Godoy APRN 03/13/242115 Signed By: <Electronically signed by CHARLEY Godoy> 03/13/24 2348 <Electronically signed by Gabriela Nobles MD> 03/14/24 0428 [facility] Work Phone: 1(455) 902-315810-25-2024 Evaluation note* Diagnosis Onset Date Resolution Status Admit Date Abdominal pain resolved March 082023 1:23pm Atrial fibrillation resolved Octob er 2023 1:23pm Chronic HFrEF (heart failure with reduced ejection fraction) resolved March 08 1:23pm Hypertension resolved February 1:23pm Nonischemic cardiomyopathy resolved March 08, 2024 1:23pm Sarcoidosis of lung resolved Octob er 2023 1:23pm Abdominal pain resolved March 132023 8:27pm Alcohol dependence resolved Octobe r 2023 8:27pm Atrial fibrillation resolved Octob er 2023 8:27pm Carotid stenosis, right resolved O ctober 2023 8:27pm Chronic HFrEF (heart failure with reduced ejection fraction) resolved March 13 8:27pm Encephalopathy acute resolved 2023 8:27pm Hypertension resolved February 8:27pm Mild left ventricular systol ic dysfunction resolved March 13 8:27pm Nonischemic cardiomyopathy resolved March 13, 2024 8:27pm Persistent atrial fibrillation resol lino March 13, 2024 8:27pm Pulmonary sarcoidosis resolved Feb 8:27pm Encephalopathy acute March 152023 1:58pm Atrial fibrillation resolved 2023 1:58pm Chronic HFrEF (heart failure with reduced ejection fraction) resolved March 25 1:58pm Hypertension resolved March 1:58pm Nonischemic cardiomyopathy resolved March 25, 2024 1:58pm Sarcoidosis of lung resolved 2023 1:58pm Altered mental status acute Apr 10:49am Hypotension acute June 03, 2024 2:25pm Rectal bleeding acute May 162024 2:25pm Atrial fibrillation resolved 2024 2:25pm Chronic HFrEF (heart failure with reduced ejection fraction) resolved June 03 2:25pm Nonischemic cardiomyopathy resolved June 03, 2024 2:25pm Sarcoidosis of lung resolved 2024 2:25pm [facility] Work Phone: 1(720) 720-517710-18-2024 Discharge summary Author Altaf Jones [facility] March 01, 2024 12:16pm Note Date/Time March 01, 2024 1 2:12pm [facility] [address] [place] [address] Discharge Summary Signed Patient: Mary Mcadams MR#: [id number] : 1955 Acct:[id number] Age/Sex: 68 / M Adm Date: 4 Loc: Room: [address] [place] [address]: Altaf Jones MD Copies to: MD Adam Carballo DO~ Providers Date of Discharge: 03/01/24 Discharging Provider: Altaf Jones Primary Care Provider: Adam Del Valle Consults: 02/29/24 00:15 Consult to Cardiology Routine Comment: Consulting Provider: [facility] Reason For Exam: chf Has Provider [...] Plan Discharge Plan Patient Disposition: Home Health [facility] Activity: No Activity Restriction Diet: Low-Sodium Additional [...] at HS and napping DME [facility] Ellipta 200-62.5-25 mcg blister with device [...] Del Valle DO [Primary Care Provider] - 03/08/24 9:30 am (You have been scheduled for [...] signed by Altaf Jones MD> 03/01/24 1216 [facility] Work Phone: 1(880) 471-769510-18-2024 Progress note Author Shannon Gonzalez [facility] March 01, 2024 9:53am Note Date/Time March 01, 2024 9 :53am [facility] [address] [place] [address] Cardiology Progress Note Signed Patient: Mary Mcadams MR#: [id number] : 1955 Acct:[id number] Age/Sex: 68 / M Adm Date: 4 Loc: Room: [address] [place] [address] Type: ADM IN Attending Dr: Altaf Jones [...] Localized edema Documented By: Shannon Gonzalez MD, [facility] 4 0949 Signed By: <Electronically signed by MD POOL Gonzalez> 03/01/24 0953 [facility] Work Phone: 1([phone]) 565-777710-18-2024 [facility] Consult note Author Shannon Gonzalez [facility] February 29, 2024 3:45pm Note Date/Time February 29, 2024 3 :42pm [facility] [address] [place] [address] Cardiology Consult Note Signed Patient: Mary Mcadams MR#: [id number] : 1955 Acct:[id number] Age/Sex: 68 / M Adm Date: 4 Loc: Room: [address] [place] [address] Type: ADM IN Attending Dr: Altaf Jones MD Copies to: MD Adam Carballo DO Hassan M Ibrahim, MD, [facility]~ Cardiology HPI History of Present Illness Consult [...] is covered above in HPI was unremarkable [facility] Medical History (Updated 02/29/24 @ 15:44 by [...] Lymph # (Auto) 0.6 L (1.00-4.8) x10E3/uL Dickinson # (Auto) 0.6 (0.0-0.8) x10E3/uL Eos # [...] Localized edema Documented By: Shannon Gonzalez MD, [facility] 4 1534 Signed By: <Electronically signed by [facility] Shannon Gonzalez> 02/29/24 1545 [facility] Work Phone: 1(703) 287-350410-17-2024 Progress note Author Altaf Jones [facility] February 29, 2024 12:03pm Note Date/Time February 29, 2024 1 1:53am [facility] [address] [place] [address] Hospitalist Progress Note Signed Patient: Mary Mcadams MR#: [id number] : 1955 Acct:[id number] Age/Sex: 68 / M Adm Date: 4 Loc: Room: [address] [place] [address] Type: ADM IN Attending Dr: Altaf Jones [...] of care and confirmed it with the resident/student/AUTOMOTIVE SERVICE PROFESSIONAL. Patient, Mary Mcadams, is a 68 year [...] spray 02/29/24 09:00 02/29/24 08:49 Fluticasone Propionate Fairbank 120 Fairbank/16 Gm Bottle INTRANASAL 02/28/25 08:59 1 spray [...] <Electronically signed by Altaf Jones MD> 02/29/24 1203 [facility] Work Phone: 1([phone] 786-878610-17-2024 History and physical note Author Silvano Reed [facility] February 29, 2024 1:28am Note Date/Time February 29, 2024 1 2:24am [facility] [address] [place] [address] Hospitalist H&P Signed Patient: Mary Mcadams MR#: [id number] : 1955 Acct:[id number] Age/Sex: 68 / M Adm Date: 4 Loc: Room: [address] [place] [address] Type: ADM IN Attending Dr: Silvano Reed DO Copies to: Adam Del Valle,DO Silvano Reed, DO Maricruz Godoy, WRAP CHECKER~ HPI DATE OF EXAMINATION: 02/28/24 CHIEF COMPLAINT: [...] be admitted as inpatient to the [facility] telemetry floor. Review of Systems Review of Systems Review of systems: A 10 point review of systems was obtained, negative unless noted in the HPI or below. [facility] Medical History Alcohol dependence Afib Rectal bleeding [...] % (Auto) 9.9 % (.) 02/28/24 22:00 Dickinson % (Auto) 10.0 % (.) 02/28/24 22:00 Eos % (Auto) 0.9 % (.) 02/28/24 22:00 Baso % (Auto) 0.4 % (.) 02/28/24 22:00 Nucleat RBC Rel Count 0.1 /100 WBC (0-0.5) 02/28/24 22:00 Neut # (Auto) 4.6 x10E3/uL (1.8-7.7) 02/28/24 22:00 Lymph # (Auto) 0.6 x10E3/uL (1.00-4.8) L 02/28/24 22:00 Dickinson # (Auto) 0.6 x10E3/uL (0.0-0.8) 02/28/24 22:00 [...] signed by Silvano Reed DO> 02/29/24 0128 [facility] Work Phone: [phone]) 292-386310-08-2024 History of Present illness Narrative* Olivia Toro LPN - 02/20/2024 2:00 PM EDT Patient here for an EKG visit ordered by Dr. Gonzalez due to new onset afib, diagnosed at [facility] on 02/04/24. Dr. Burroughs in suite to review EKG prior to discharge. Medication list Updated verbally. Patient has complaints of SOB and dizziness while in office. To Dr. Gonzalez to read Vitals: 02/20/24 1422 BP: 140/80 BP Location: Left arm Patient Position: Sitting Pulse: 102 Weight: 76.7 kg (169 lb) Height: 1.829 m (6') documented in this [facility] Work Phone: 1(763) 227-685709-22-2024 Discharge summary Author Silvano Reed [facility] February 04, 2024 4:34pm Note Date/Time February 04, 2024 2:14pm [facility] [address] [place] [address] Discharge Summary Signed Patient: Mary Mcadams MR#: [id number] : 1955 Acct:[id number] Age/Sex: 68 / M Adm Date: 4 Loc: Room: [address] [place] [address]: Silvano Reed DO Copies to: DO Shannon Waller MD, [facility] Silvano Reed DO~ Providers Date of Discharge: 02/04/24 Discharging Provider: Silvano Reed Primary Care Provider: Adam Del Valle Consults: 02/02/24 10:35 Consult to Cardiology Routine Comment: Consulting Provider: [facility] Reason For Exam: New A-Fib with RVR. [facility] Provider Been Notified: [...] and months. He even saw his primary reordering clerk, Dr. 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 He [...] long time was not changed by the client development consultant during hospital stay. An echocardiogram was [...] Instructions: 2 liters at HS and napping [facility] Ellipta 200-62.5-25 mcg blister with device 1 [...] % (Auto) 72.1, Lymph % (Auto) 13.6, Dickinson % (Auto) 12.9, Eos % (Auto) 1.2, Baso % (Auto) 0.2, Nucleat RBC Rel Count 0.1, Neut # (Auto) 5.6, Lymph # (Auto) 1.1, Dickinson # (Auto) 1.0 H, Eos # (Auto) 0.1, Baso # (Auto) 0.0, PHA Creatinine Clear 86.96, Sodium 133 L, Potassium 4.4, Chloride 100, Carbon Dioxide 29.9, Anion Gap 7.5, BUN 22, Creatinine 0.88, Est GFR (CKD-EPI) > 60.0, Glucose 83, Calcium 8.7 Documented By: Silvano Reed DO 1414 Signed By: <Electronically signed by Silvano Reed DO> 02/04/24 1639 [facility] Work Phone: 1(495) 333-901409-22-2024 Progress note Author Shannon Gonzalez [facility] February 04, 2024 1:00pm Note Date/Time February 04, 2024 1:00pm [facility] [address] [place] [address] Cardiology Progress Note Signed Patient: Mary Mcadams MR#: [id number] : 1955 Acct:[id number] Age/Sex: 68 / M Adm Date: 4 Loc: 3T Room: [address] [place] [address] Type: ADM IN Attending Dr: Silvano Reed [...] % (Auto) 72.1 Lymph % (Auto) 13.6 Dickinson % (Auto) 12.9 Eos % (Auto) 1.2 Baso % (Auto) 0.2 Nucleat RBC Rel Count 0.1 Neut # (Auto) 5.6 Lymph # (Auto) 1.1 Dickinson # (Auto) 1.0 H Eos # (Auto) [...] Plan: Continue Xarelto indefinitely Code(s): Z79.01 - senior living (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 Documented By: Shannon Gonzalez MD, [facility] 4 1256 Signed By: <Electronically signed by [facility] Shannon Gonzalez> 02/04/24 1300 [facility] Work Phone: 1(956) 442-221509-21-2024 Progress note Author Silvano Reed [facility] February 03, 2024 2:11pm Note Date/Time February 03, 2024 12:35pm [facility] [address] [place] [address] Hospitalist Progress Note Signed Patient: Mary Mcadams MR#: [id number] : 1955 Acct:[id number] Age/Sex: 68 / M Adm Date: 4 Loc: Room: [address] [place] [address] Type: ADM IN Attending Dr: Silvano Reed [...] Name Freq PRN Reason Stop Dose Admin Albuterol 2.5 [...] spray 02/03/24 09:00 02/03/24 08:18 Fluticasone Propionate Fairbank 120 Fairbank/16 Gm Bottle INTRANASAL 02/02/25 08:59 1 spray [...] Administration Non-Formulary Medication 1 inh 02/03/24 09:00 Yowtwxxjayn-Gqcxgjrem-Gosbqxze [Trelegy Ellipta] INHALATION 02/02/25 08:59 DAILY ALEX Pantoprazole Sodium 40 mg 02/03/24 09:00 02/03/24 08:18 Pantoprazole 40 Mg Tablet.Dr PO 02/02/25 08:59 40 mg DAILY ALEX [...] atrial fibrillation - Accepted inpatient transfer from [facility] - Currently hemodynamically stable - BNP 239. [...] dyspnea on exertion. BNP level at the [facility] was extremely high at 2166. - Cardiology consultation. 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 Take medications as directed [...] <Electronically signed by DO MAIA Billy> 02/03/24 8436 [facility] Work Phone: 1(515) 726-529109-21-2024 Consult note Author Shannon Gonzalez [facility] February 03, 2024 1:43pm Note Date/Time February 03, 2024 1:38pm [facility] [address] [place] [address] Cardiology Consult Note Signed Patient: Mary Mcadams MR#: [id number] : 1955 Acct:[id number] Age/Sex: 68 / M Adm Date: 4 Loc: Room: [address] [place] [address] Type: ADM IN Attending Dr: Silvano Reed DO Copies to: DO Shannon Waller MD, [facility] Silvano Reed DO~ Cardiology HPI History of [...] 11 point review of system essentially unremarkable [facility] Medical History Cardiac sarcoidosis Bullous emphysema History [...] Lymph # (Auto) 0.5 L (1.00-4.8) x10E3/uL Dickinson # (Auto) 0.9 H (0.0-0.8) x10E3/uL Eos [...] @ 10 MG/HR 10 mls/hr IV .Q10H [facility] Rx#:[id number] Oral 650 / 650 550 / 550 [...] atrial fibrillation Documented By: Shannon Gonzalez MD, [facility] 4 3102 Signed By: <Electronically signed by MD POOL Gonzalez> 02/03/24 1343 [facility] Work Phone: 1(526) 635-803209-20-2024 History and physical note Author Silvano Reed [facility] February 02, 2024 3:17pm Note Date/Time February 02, 2024 12:05pm [facility] [address] [place] [address] Hospitalist H&P Signed Patient: Mary Mcadams MR#: [id number] : 1955 Acct:[id number] Age/Sex: 68 / M Adm Date: 4 Loc: Room: [address] [place] [address] Type: ADM IN Attending Dr: Silvano Reed DO Copies to: Rubin Billy DO, MAIA Del Valle,DO Silvano Reed DO~ HPI DATE OF EXAMINATION: 02/02/24 CHIEF COMPLAINT: New onset afib HISTORY OF PRESENT ILLNESS: Patient is a 68-year-old male with past medical history of nonischemic cardiomyopathy, sarcoidosis, BPH, hypertension, acoustic neuroma who presented to [facility] on 01/31 with complaint of new onset [...] was diagnosed with Afib w/ RVR at [facility] and transferred to [facility] as an inpatient on 02/01. His medications seem to help with his pulmonary issues, but he thinks his shortness of breath has been worsening over the past 2 months. He last saw his reordering clerk, Dr. Alvares in October 2023. Per his [...] and no additional complaints, except as documented [facility] Medical History Cardiac sarcoidosis Bullous emphysema History [...] atrial fibrillation - Accepted inpatient transfer from [facility] - Currently hemodynamically stable - BNP 2166 - Stat EKG shows afib - Cardizem drip -titrate for heart rate between 70 and 90 bpm. - Trans thoracic echocardiogram. - Cardiology consult placed, will follow recommendations Recent symptomatology of progressive dyspnea, and dyspnea on exertion. BNP level at the [facility] was extremely high at 2166. -Cardiology consultation. -Awaiting echocardiogram. senior living conditions: Chronic hypoxic respiratory failure - continue 2 liters by SC as at home. Take medications as directed [...] by DO RES Rubin Billy> 02/02/24 1428 [facility] Work Phone: 1(264) 987-270209-20-2024 Evaluation note* Diagnosis Onset Date Resolution Status Admit Date Acoustic neuroma acute Septembe r 2023 9:23am Anticoagulated acute February 02, 2024 9:23am Benign prostatic hyperplasia with lower urinary tract symptoms acute February 02, 2024 9:23am Cardiac sarcoidosis acute Septe mb2023 9:23am Chronic HFrEF (heart failure with reduced ejection fraction) acute February 02, 2024 9:23am Hypertension acute February 012023 9:23am New onset atrial fibrillation acute February 02, 2024 9:23am Pulmonary sarcoidosis acute Sep 2023 9:23am Nonischemic cardiomyopathy chronic February 02, 2024 9:23am Atrial fibrillation with RVR resolve d February 02, 2024 9:23am Nonsustained paroxysmal ventricular tachycardia resolved Septembe r 2023 9:23am Atrial fibrillation acute Octob er 2023 2:16pm Chronic HFrEF (heart failure with reduced ejection fraction) acute February 13 2:16pm Hypertension acute February 14, 2024 2:16pm Rectal bleeding acute February 132023 2:16pm Nonischemic cardiomyopathy chronic February 14, 2024 2:16pm Sarcoidosis of lung resolved Octob er 2023 2:16pm Alcohol dependence acute Octobe r 2023 11:30pm Atrial fibrillation acute Octob er 2023 11:30pm Hypertension acute February 11:30pm Pulmonary sarcoidosis acute Oct mauri 2023 11:30pm Acute on chronic clinical systolic heart failure resolved February 122023 11:30pm Bullous emphysema resolved February 28, 2024 11:30pm Chronic respiratory failure with hypoxia resolved February 27 11:30pm Hyponatremia resolved February 11:30pm Lower extremity edema resolved Oct mauri 2023 11:30pm Shortness of breath resolved Octob er 2023 11:30pm Abdominal pain acute March 082023 1:23pm Atrial fibrillation acute Octob er 2023 1:23pm Chronic HFrEF (heart failure with reduced ejection fraction) acute March 08 1:23pm Hypertension acute February 1:23pm Nonischemic cardiomyopathy chronic March 08, 2024 1:23pm Sarcoidosis of lung resolved Octob er 2023 1:23pm Abdominal pain acute March 132023 8:27pm Alcohol dependence acute Octobe r 2023 8:27pm Atrial fibrillation acute Octob er 2023 8:27pm Carotid stenosis, right acute O ctober 2023 8:27pm Chronic HFrEF (heart failure with reduced ejection fraction) acute March 13 8:27pm Encephalopathy acute acute Octo cyn 2023 8:27pm Hypertension acute February 8:27pm Mild left ventricular systol ic dysfunction acute March 13 8:27pm Persistent atrial fibrillation acute March 13, 2024 8:27pm Pulmonary sarcoidosis acute Oct mauri 2023 8:27pm Nonischemic cardiomyopathy chronic March 13, 2024 8:27pm Atrial fibrillation acute 2023 1:58pm Chronic HFrEF (heart failure with reduced ejection fraction) acute March 25, 2 024 1:58pm Encephalopathy acute March 152023 1:58pm Hypertension acute March 1:58pm Nonischemic cardiomyopathy chronic March 25, 2024 1:58pm Sarcoidosis of lung resolved 2023 1:58pm [facility] Work Phone: 1(348) 673-532305-31-2024 History of Present illness Narrative* Steven Alvares MD - 10/13/2023 1:30 PM EDT Subjective aMry Mcadams is a 68 y.o. male Chief [...] Attestation By signing my name below, I, Pavel Arcos LPN attest that this documentation has been prepared [...] exam, discussion and plan. [facility] Work Phone: 1(980) 954-560105-31-2024 Instructions* Patient Instructions* Beverley Morse LPN - [...] time of your visit. documented in this [facility] Work Phone: 1(134) 802-568804-01-2024 Hospital Discharge instructions Patient Education 08/14/2023 16:09:27 [...] urethra. Follow these instructions at home: Take onij-icf-giidxpl and prescription medicines only as told by [...] provider. Document Revised: 11/17/2021 Document Reviewed: 11/17/2021 [employer] Patient Education 2022 [employer]. Follow Up Care 11/28/2022 14:06:23 With:EMERSON SALMON, Clinton Hernandez, URL Address: [facility] [address] , [place] [address]- [phone] When: Unknown 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 [facility] Other 07-23-2023 Evaluation note* Encounter Date Diagnosis Assessment Notes Treatment Notes Treatment Clinical Notes Nov, Acoustic neuroma (ICD-10 - D33.3) MRI: [id number] left IAC - 12/2021 (no change from 2017) [facility] Other 07-17-2023 Hospital Discharge instructions Patient Education [...] and water are not available, use hand pattern data operator. 2.Clean your penis with soap and water. [...] reusable catheter in a small bathroom. Take fime-hbq-ibmczct and prescription medicines only as told by [...] provider. Document Revised: 03/07/2022 Document Reviewed: 03/07/2022 [employer] Patient Education 2022 [employer] [facility]. 11/28/2022 14:00:56 Benign Prostatic Hyperplasia Benign Prostatic [...] urethra. Follow these instructions at home: Take hsot-epb-jlmvvde and prescription medicines only as told by [...] provider. Document Revised: 11/17/2021 Document Reviewed: 11/17/2021 [employer] Patient Education 2022 [employer] labs. Follow Up Care 02/14/2022 12:45:59 With:EMERSON SALMON, Clinton Hernandez, URL Address: [facility] [address] , [place] [address] [phone] When: Unknown Comments:6 mos w/ PSA [facility] 05-16-2023 Evaluation note* Encounter Date Diagnosis Assessment Notes Treatment Notes Treatment Clinical Notes September, Chronic obstructive pulmonary disease, unspecified (ICD-10 - J44.9) [facility] Other 04-20-2023 Evaluation note* Encounter Date Diagnosis [...] with reduced ejection fraction) (ICD-10 - I50.22) [employer] Other 10-03-2022 Hospital Discharge instructions Patient Education 02/14/2022 12:20:02 Acute Urinary Retention, Male, Oppm-qx-Iowx Acute Urinary Retention, Male Acute urinary retention means that you cannot pee (urinate) at all, or that you pee too little and your bladder is not emptied completely. If it is not treated, it can lead to kidney damage or other serious problems. Follow these instructions at home: Take xqng-dgk-fkyzble and prescription medicines only as told by [...] 10/17/2008 Document Revised: 07/18/2019 Document Reviewed: 06/02/2017 [employer] Patient Education 2020 sabio labs. Follow Up Care 08/09/2021 13:00:29 With:EMERSON SALMON, CARYL Macedo Address: [facility] [address] , [place] [phone] When:08/15/[address] [facility] [address] [facility] 06-14-2022 History and physical note Author Gregg Hilliard [facility] October 26, 2021 10:26am Note Date/Time October 26, 2021 10:1 5am [facility] [address] [place] [id number] Gastroenterology H&P Signed Patient: Mary Mcadams MR#: [id number] : 1955 Acct:[id number] Age/Sex: 66 / M Adm Date: 2 Loc: Room: Type: [facility] Attending Dr: Gregg Hilliard DO Copies to: [...] By: <Electronically signed by Gregg Hilliard Jr, DO> 10/26/21 1026 [facility] Work Phone: 1([phone] 376-283306-14-2022 [facility]* Encounter Date Diagnosis Assessment Notes Treatment Notes Treatment Clinical Notes September, History of colon polyps (ICD-10 - Z86.010) September, Anemia, unspecified type (ICD-10 - D64.9) [employer] Other 05-24-2022 Evaluation note* Encounter Date Diagnosis Assessment Notes Treatment Notes Treatment Clinical Notes September, Chronic obstructive pulmonary disease, unspecified (ICD-10 - J44.9) [employer] Other 04-06-2022 Evaluation note* Encounter Date Diagnosis Assessment Notes Treatment Notes Treatment Clinical Notes Aug, 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 2.Prepare the supplies that you will use [...] reusable catheter in a small bathroom. Take gthp-khf-tjpavgc and prescription medicines only as told by [...] 06/03/2011 Document Revised: 08/21/2019 Document Reviewed: 12/20/2018 [employer] Patient Education 2020 sabio labs. 08/09/2021 12:46:36 Benign Prostatic Hyperplasia Benign Prostatic [...] urethra. Follow these instructions at home: Take urgj-mjv-cvimbem and prescription medicines only as told by [...] 05/01/2006 Document Revised: 03/26/2019 Document Reviewed: 06/05/2017 [employer] Patient Education 2020 sabio labs. Follow Up Care 04/05/2021 12:45:32 With:Clinton NORMAN MD, URL Address: [facility] [address], [place] [address]- [phone] When:02/09/2022 Comments:6 months w PSA [facility] evaluation + Plan note Future Appointments Appointment Date:02/14/2022 11:45:00 AM Scheduled Provider:Clinton NORMAN MD Location:[facility] Appointment Type:URO Office Visit Diagnostic Tests Pending * PSA Total 08/09/21 [facility] evaluation + Plan note Future Appointments Appointment Date:09/05/2022 02:15:00 PM Scheduled Provider:Clinton NORMAN MD Location:[facility] Appointment Type:URO Office Visit [facility] evaluation + Plan note Future Appointments Appointment Date:06/05/2023 12:45:00 PM Scheduled Provider:Clinton NORMAN MD [facility] Appointment Type:URO Office Visit Diagnostic Tests Pending * PSA Total 11/28/22 [facility] evaluation + Plan note Future Appointments Appointment Date:02/19/2024 01:15:00 PM Scheduled Provider:Clinton NORMAN MD [facility] Appointment Type:URO Office Visit Diagnostic Tests Pending * PSA Total 08/14/[address] [facility] [address] [facility] evaluation + Plan note Future Appointments Appointment Date:02/03/2025 02:30:00 PM Scheduled Provider: Location:[facility] Appointment Type:URO Nurse Visit Appointment Date:02/10/2025 02:15:00 PM Scheduled Provider:Clinton NORMAN MD Location:[facility] Appointment Type:URO Office Visit Future Scheduled Tests Laboratory* PSA Total 02/05/25 [facility] Evaluation noteNo assessment information available [facility] Work Phone: evaluation note* Diagnosis Onset Date Resolution Status Anemia acute Personal history of colonic polyps acute [facility] Work Phone: Evaluation noteNo [employer] Other Evaluation note* Diagnosis Non-ischemic cardiomyopathy (Multi)- Primary Other primary cardiomyopathies LV (left ventricular) mural thrombus Acute myocardial infarction, unspecified site, episode of care unspecified Diastolic dysfunction Unspecified heart disease Pulmonary sarcoidosis (Multi) Sarcoidosis Imbalance Abnormality of gait BMI 23.0-23.9, adult documented in this encounter [facility] Work Phone: Evaluation note* Diagnosis Onset Date Resolution Status Acoustic neuroma acute Anticoagulated acute Atrial fibrillation with RVR acute Benign prostatic hyperplasia with lower urinary tract symptoms acute Cardiac sarcoidosis acute Chronic HFrEF (heart failure with reduced ejection fraction) acute Hypertension acute New onset atrial fibrillation acute Nonsustained paroxysmal ventricular tachycardia acute Pulmonary sarcoidosis acute Nonischemic cardiomyopathy c onic [facility] Work Phone: Evaluation note* Diagnosis Onset [...] Sarcoidosis of lung resolved Nonischemic cardiomyopathy c hronic [facility] Work Phone: Evaluation note* Diagnosis Onset [...] heart failure acute Shortness of breath acute [facility] Work Phone: evaluation note* Diagnosis Onset Date Resolution Status Acoustic [...] respiratory failure with hypoxia chronic Hyponatremia chronic [facility] Work Phone: evaluation note* Diagnosis Onset Date Resolution Status Acoustic [...] respiratory failure with hypoxia chronic Hyponatremia chronic Atrial fibrillation acute Chronic HFrEF (heart failure with reduced ejection fraction) acute Hypertension acute Nonischemic cardiomyopathy c hronic Sarcoidosis of lung resolved [facility] Work Phone: Evaluation note* Diagnosis Onset [...] cardiomyopathy c hronic Sarcoidosis of lung resolved Alcohol dependence acute Atrial fibrillation acute Hypertension acute Pulmonary sarcoidosis acute Acute on chronic clinical systolic heart failure resolved Bullous emphysema resolved Chronic respiratory failure with hypoxia resolved Hyponatremia resolved Lower extremity edema resolv ed Shortness of breath resolved Abdominal pain acute Atrial fibrillation acute Chronic HFrEF (heart failure with reduced ejection fraction) acute Hypertension acute Nonischemic cardiomyopathy c hronic Sarcoidosis of lung resolved Abdominal pain acute Alcohol dependence acute Atrial fibrillation acute Carotid stenosis, right acut e Chronic HFrEF (heart failure with reduced ejection fraction) acute Encephalopathy acute acute Hypertension acute Mild left ventricular systolic dysfunction acute Persistent atrial fibrillation acute Pulmonary sarcoidosis acute Nonischemic cardiomyopathy c hronic [facility] Work Phone: Evaluation note* Diagnosis Persistent atrial fibrillation (Multi)- Primary Atrial fibrillation Non-ischemic cardiomyopathy (Multi) Other primary cardiomyopathies Chronic obstructive pulmonary disease, unspecified COPD type (Multi) BMI 20.0-20.9, adult High risk medication use Pulmonary sarcoidosis (Multi) Sarcoidosis Carotid artery stenosis without cerebral infarction, right Dyslipidemia Other and unspecified hyperlipidemia documented in this encounter [facility] Work Phone: Evaluation note* Diagnosis Hypotension due to drugs- Primary Other iatrogenic hypotension Non-ischemic cardiomyopathy (Multi) Other primary cardiomyopathies Diastolic dysfunction Unspecified heart disease Fatigue, unspecified type LV (left ventricular) mural thrombus Acute myocardial infarction, unspecified site, episode of care unspecified 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 (Multi) Atrial fibrillation High risk medication use Pulmonary sarcoidosis (Multi) Sarcoidosis BMI 21.0-21.9, adult Carotid stenosis, right Occlusion and stenosis of carotid artery without mention of cerebral infarction documented in this encounter [facility] Work Phone: Evaluation note* Diagnosis Fatigue, unspecified type Non-ischemic cardiomyopathy (Multi) Other primary cardiomyopathies Diastolic dysfunction Unspecified heart disease LV (left ventricular) mural thrombus Acute myocardial infarction, unspecified site, episode of care unspecified 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 (Multi) Atrial fibrillation documented in this encounter [facility] Work Phone: Evaluation note* Diagnosis Chronic respiratory failure with hypoxia (CMS-HCC)- Primary Closed wedge compression fracture of T7 vertebra with routine healing, subsequent encounter Closed wedge compression fracture of T8 vertebra with routine healing, subsequent encounter Sarcoid myocarditis Hypotension, unspecified hypotension type Benign prostatic hyperplasia with lower urinary tract symptoms, symptom details unspecified Hypo-osmolality and hyponatremia Hypokalemia Hypopotassemia Sarcoidosis of lung (CMS-HCC) Sarcoidosis Chronic systolic congestive heart failure (CMS-HCC) Muscle weakness (generalized) Alcohol dependence, 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[facility]) Other and unspecified alcohol dependence, in remission [facility] Diagnosis Chronic respiratory failure with hypoxia (CMS-HCC)- Primary Closed wedge compression fracture of T8 vertebra with routine healing, subsequent encounter Closed wedge compression fracture of T7 vertebra with routine healing, subsequent encounter Sarcoidosis of lung (CMS-HCC) Sarcoidosis Chronic systolic congestive heart failure (CMS-HCC) Sarcoid myocarditis Gross hematuria Hypo-osmolality and hyponatremia Hypokalemia Hypopotassemia Alcohol dependence, 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CMS-HCC) Other and unspecified alcohol dependence, in remission Benign prostatic hyperplasia with lower urinary tract symptoms, symptom details unspecified Other spondylosis, lumbar region Muscle weakness (generalized) Encephalopathy, unspecified type Occlusion and stenosis of right carotid artery Gastroesophageal reflux disease without esophagitis Esophageal reflux Chronic atrial fibrillation (CMS-HCC) Atrial fibrillation [facility] Diagnosis Chronic systolic congestive heart failure (CMS-HCC)- Primary Chronic atrial fibrillation (CMS-HCC) Atrial fibrillation Sarcoidosis of lung (CMS-HCC) Sarcoidosis Hypo-osmolality and hyponatremia Benign prostatic hyperplasia with lower urinary tract symptoms, symptom details unspecified documented [facility] this encounter [facility] Diagnosis Atrial fibrillation, unspecified type (Multi) documented in this encounter [facility] Work Phone: Evaluation note* Diagnosis Non-ischemic cardiomyopathy (Multi) Other primary cardiomyopathies Cardiomyopathy, unspecified documented in this encounter [facility] Work Phone: Evaluation note* Diagnosis Other fatigue- Primary Non-ischemic cardiomyopathy (Multi) Other primary cardiomyopathies 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 (Multi) Atrial fibrillation High risk medication use Pulmonary sarcoidosis (Multi) Sarcoidosis BMI < 18.5 Current smoker documented in this encounter [facility] Work Phone: Evaluation note* Diagnosis High risk medication use- Primary 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 (Multi) Atrial fibrillation 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 Long-term (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 Takotsubo syndrome BMI < 18.5 Cardiac sarcoidosis Chewing tobacco use Other cardiomyopathy LV dysfunction Left heart failure documented in this encounter [facility] Work Phone: Evaluation note* Diagnosis High risk medication use- Primary 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 (Multi) Atrial fibrillation 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 Long-term (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 Takotsubo syndrome BMI < 18.5 Cardiac sarcoidosis Chewing tobacco use Other cardiomyopathy LV dysfunction Left heart failure High risk medication use documented in this encounter [facility] Work Phone: History and physical note Author Silvano Reed [facility] Note Date/Time November 11, 2024 3:30 am [facility] [address] [place] [address] Hospitalist H&P Signed Patient: Mary Mcadams MR#: [id number] : 1955 Acct:[id number] Age/Sex: 69 / M Adm Date: 5 Loc: ER Room: Type: [facility] ER Attending Dr: Copies to: DO Hasmukh Waller DO Kristopher L Lindbloom, ~ HPI DATE OF EXAMINATION: 11/11/24 CHIEF COMPLAINT: Severe shortness of breath, tripod breathing, can only walk 5 steps. HISTORY OF PRESENT ILLNESS: This is a 77-year-old man who was brought to the emergency room here around midnight with a complaint of severe shortness of breath. The patient reports that this has been getting gradually worse over the last week. It has been veryhot and humid weather here in the end of October. He is supposed to wear oxygen athome at 2 L all the time but he admits that he really only wears it when sleeping at nighttime. In the emergency room he was described as having pursed lip breathing and being in a tripod position. He was provided with multiple rounds of nebulizer treatments, IV magnesium, and Solu-Medrol. Despite that thepatient reported he still felt very short of breath and a lot of air hunger and so he did not want to go home. He does have an extensive history. He has well-known severe COPD. 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 He is maintained on 5 mg of prednisone daily at the direction of his PCP. He also hasparoxysmal atrial fibrillation on dofetilide and anticoagulated with Xarelto. He has a history of heart failure with moderately reduced ejection fraction but he reports that he saw Dr. Montes who told him that he no longer needs to take Entresto. He also has a history of acoustic neuroma. He has a history of prostate hypertrophy and used to straight catheterize himself twice a day at home. Back in June he was hospitalized with a urinary tract infection and aFoley catheter was placed. He now reports that he has good urine and that he really only does a self-catheterization on himself once a day. He denies any acute urinary infection symptoms such as pain or burning or difficulty starting his stream or foul-smelling urine. Review of Systems Review of Systems Review of systems: 10 systems are reviewed and are negative except as mentioned elsewhere in the documentation. [facility] Medical History (Updated 11/11/24 @ 03:27 by Silvano Reed DO) Bullous emphysema 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 Benign prostatic hyperplasia with lower urinary tract symptoms Atrial fibrillation Pulmonary sarcoidosis Chronic respiratory failure with hypoxia Carotid stenosis, right CTA: 90% right ICA - 02/2024 Chronic HFrEF (heart failure with reduced ejection fraction) Nonischemic cardiomyopathy Echo: LVEF 45-50%, normal RV size/function, mild aortic root dilatation 4.0 cm - 02/2024 Hyponatremia Anemia Alcohol dependence Hypertension History of cardioversion Abdominal pain Cardiac sarcoidosis History of aspergilloma Acoustic neuroma Lumbar spondylosis Gastroesophageal reflux disease with esophagitis without hemorrhage Diverticulosis Personal history of colonic polyps Surgical History H/O colonoscopy (~10/2021) repeat 5 years History of arthroscopic knee surgery Family History Brother Heart disease Legacy FamHx Relation: Brother(s) Father Cancer Legacy FamHx Problem: Diagnosed with Cancer Mother Heart disease Myocardial infarction Diabetes Social History Smoking Status: Former smoker Substance Use Type: None Substance Abuse Comment: quit smoking in February 2024 Meds Medications and Allergies Allergies No Known Allergies Allergy (Verified 11/10/24 22:44) Home Medications finasteride 5 mg tablet 5 mg PO DAILY 09/08/23 [History Confirmed 11/10/24] latanoprost 0.005 % eye drops 1 drp ophthalmic (eye) DAILY 10/12/23 [History Confirmed 11/10/24] Oxygen 10/23/23 [History Confirmed 11/11/24] fluticasone fur. 200 mcg-umeclid 62.5 mcg-vilant 25 mcg inhalat.powder (Trelegy Ellipta) 1 inh inhalation DAILY #180 ea 10/23/23 [Rx Confirmed 11/10/24] ipratropium 0.5 mg-albuterol 3 mg (2.5 mg base)/3 mL nebulization soln 3 ml inhalation QID 30 days #360 mL 01/30/24 [Rx Confirmed 11/10/24] rivaroxaban 20 mg tablet (Xarelto) 20 mg PO DAILY.WITH.BKFAST 30 days #30 tabs 02/04/24 [Rx Confirmed 11/10/24] multivitamin with minerals 1 cap PO DAILY #90 caps 03/19/24 [Rx Confirmed 11/10/24] atorvastatin 40 mg tablet 40 mg PO QPM 30 days #30 tabs 03/20/24 [Rx Confirmed 11/10/24] potassium chloride 10 mEq tablet,extended release (Klor-Con) 10 meq PO DAILY 30 days #30 tabs 03/27/24 [Rx Confirmed 11/10/24] furosemide 20 mg tablet 20 mg PO BID 06/03/24 [History Confirmed 11/10/24] magnesium oxide 400 mg (241.3 mg magnesium) tablet 400 mg PO DAILY 06/03/24 [History Confirmed 11/10/24] metoprolol succinate 25 mg tablet,extended release 24 hr 25 mg PO DAILY 06/03/24[History Confirmed 11/10/24] acetaminophen 500 mg tablet 1,000 mg (2 x 500 mg) PO Q6HR PRN Pain Scale 1 - 3 or fever #0 tabs 07/09/24 [Rx Confirmed 11/10/24] pantoprazole 40 mg tablet,delayed release 40 mg PO DAILY.AC.BKFAST #0 tabs 07/09/24 [Rx Confirmed 11/10/24] tamsulosin 0.4 mg capsule See Rx Instructions .Route .COMPLEX #60 caps 08/11/24 [Rx Confirmed 11/10/24] dofetilide 250 mcg capsule 250 mcg PO Q12H 11/11/24 [History Confirmed 11/11/24] magnesium hydroxide 400 mg/5 mL oral suspension (Milk of Magnesia) 5 ml PO DAILYPRN constipation 11/11/24 [History Confirmed 11/11/24] menthol 4 % topical gel (Biofreeze (menthol)) 1 applic topical DAILY PRN pain 11/11/24 [History Confirmed 11/11/24] Allergy/Medication Comments: Please note that the home medication list may contain elements that are not accurate. This list of home medications will be updated during the hospital stay as more information becomes available. Exam Physical Exam Vital Signs: Temp Pulse Resp BP Pulse Ox O2 Del Method O2 Flow Rate 97.6 F 113 H 22 128/85 99 Nasal Cannula 2 11/11/24 02:37 11/11/24 02:37 11/11/24 02:37 11/11/24 02:37 11/11/24 02:42 11/11/24 02:42 11/11/24 02:42 Narrative: GEN: Seen in ER bay 16 he is lying perfectly flat on the ER cot. He does have increased work of breathing. Head: Normal Cephalic, Atraumatic. Eyes: Conjunctiva and sclera clear bilaterally. Nose: External nose and nares normal bilaterally. Mouth: Lips and tongue normal. Neck: No JVD. No thyromegaly. No lymphadenopathy. Lungs: Coarse and distant breath sounds throughout. Mild wheezing throughout all lung norton. Heart: Distant to auscultation. Mildly tachycardic rhythm on the monitor. I think this is because of recent albuterol nebulizer treatments. To auscultationI hear no murmurs, rubs, or gallops. Abdomen: Soft, normal bowel sounds, no rigidity, guarding, or acute peritoneal signs. Extremities: No swelling or cords in the calves bilaterally, absolutely no edema in the ankles or in his legs at all, and these are equal bilaterally. Skin: No systemic rashes or lesions. Psychiatric: Calm. Conversant. Cooperative. Neuro: Awake, Alert, and Oriented x 3. No focal or lateralizing deficits. Results - Hospitalist H&P Lab Results Labs: Laboratory Last Values Corrected WBC 6.4 X10E3/uL (4.1-10.5) 11/10/24 23:30 Uncorrected WBC Count 6.4 x10E3/uL (4.1-10.5) 11/10/24 23: RBC 3.90 x10E6/uL (3.90-5.60) 11/10/24 23: Hgb 10.5 g/dL (13.0-17.0) L 11/10/24 23: Hct 31.6 % (38.8-50.0) L 11/10/24 23: MCV 80.8 fl (83.5-101) L 11/10/24 23: MCH 27.0 pg (27.5-35.2) L 11/10/24 23: MCHC 33.4 g/dL (32.5-35.6) 11/10/24 23: RDW 16.5 % (12.0-14.8) H 11/10/24 23: Plt Count 262 x10E3/uL (150-450) 11/10/24 23: MPV 7.9 fl (6.6-10.1) 11/10/24 23: Neut % (Auto) 66.5 % (.) 11/10/24: Lymph % (Auto) 18.7 % (.) 11/10/24 23: Dickinson % (Auto) 9.3 % (.) 11/10/24: Eos % (Auto) 5.0 % (.) 11/10/24: Baso % (Auto) 0.5 % (.) 11/10/24: Nucleat RBC Rel Count 0.1 /100 WBC (0-0.5) 11/10/24: Neut # (Auto) 4.3 x10E3/uL (1.8-7.7) 11/10/24 23:30 Lymph # (Auto) 1.2 x10E3/uL (1.00-4.8) 11/10/24 23:30 Dickinson # (Auto) 0.6 x10E3/uL (0.0-0.8) 11/10/24 23:30 Eos # (Auto) 0.3 x10E3/uL (0.0-0.45) 11/10/24 23:30 Baso # (Auto) 0.0 x10E3/uL (0.0-0.2) 11/10/24 23:30 Monocyte Dist Width 18.48 % (0.00-20.00) 11/10/24 23: PHA Creatinine Clear 77.17 11/10/24 23: Sodium 133 mmol/L (136-145) L 11/10/24 23: Potassium 4.1 mmol/L (3.5-5.1) 11/10/24 23: Chloride 98 mmol/L (98-107) 11/10/24: Carbon Dioxide 28.0 mmol/L (21.0-31.0) 11/10/24 23: Anion Gap 11.1 mEq/L (6.0-15.0) 11/10/24 23: BUN 14 mg/dL (7-25) 11/10/24 23: Creatinine 0.80 mg/dL (0.70-1.30) 11/10/24 23:30 Est GFR (CKD-EPI) > 60.0 mL/Min 11/10/24 23: Glucose 100 mg/dL (70-100) 11/10/24 23: Calcium 9.8 mg/dL (8.6-10.3) 11/10/24 23: Magnesium 1.6 mg/dL (1.9-2.7) L 11/10/24: Total Bilirubin 0.6 mg/dl (0.3-1.0) 11/10/24 23: AST 19 U/L (13-39) 11/10/24 23:30 ALT 10 U/L (7-52) 11/10/24 23:30 Alkaline Phosphatase 149 U/L (34-104) H 11/10/24 23:30 Total Creatine Kinase 27 U/L (30-223) L 11/10/24 23:30 Troponin I High Sens 4 ng/L (0-20) 11/10/24 23:30 B-Natriuretic Peptide 187.0 pg/mL (5-100) H 11/10/24 23:30 Total Protein 7.5 gm/dL (6.4-8.9) 11/10/24 23:30 Albumin 3.9 gm/dL (3.5-5.7) 11/10/24 23:30 Globulin 3.6 gm/dL 11/10/24 23:30 Albumin/Globulin Ratio 1.1 11/10/24 23:30 Urine Color Light-yellow (Yellow) 11/10/24 23:15 Urine Appearance Clear (Clear) 11/10/24 23:15 Urine pH 5.5 (5.0-9.0) 11/10/24 23:15 Ur Specific Mcintosh 1.010 (1.001-1.030) 11/10/24 23:15 Urine Protein Negative mg/dL (Negative) 11/10/24 23:15 Urine Glucose (UA) Normal mg/dL (Normal) 11/10/24 23:15 Urine Ketones Negative (Negative) 11/10/24 23:15 Urine Occult Blood Negative (Negative) 11/10/24 23:15 Urine Nitrite Positive (Negative) H 11/10/24 23:15 Urine Bilirubin Negative (Negative) 11/10/24 23:15 Urine Urobilinogen Normal mg/dL (Normal) 11/10/24 23:15 Ur Leukocyte Esterase 4+ (Negative) H 11/10/24 23:15 Urine RBC 3-4 /HPF (0-4) 11/10/24 23:15 Urine WBC Innumerable /HPF (0-4) H 11/10/24 23:15 Urine WBC Clumps Many /LPF (None Seen) H 11/10/24 23:15 Ur Squamous Epith Cells 1-2 /HPF (0-2) 11/10/24 23:15 Urine Bacteria 2+ /HPF (None Seen) H 11/10/24 23:15 Hyaline Casts 9-19 /LPF (0-8) H 11/10/24 23:15 Urine Mucus Rare /LPF 11/10/24 23:15 Assessment & Plan Assessment/Plan (1) Acute exacerbation of chronic obstructive pulmonary disease (COPD): (2) Chronic respiratory failure with hypoxia: (3) Pulmonary sarcoidosis: (4) Bullous emphysema: (5) 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: (6) Corticosteroid dependence: Plan Assessment: Acute exacerbation of chronic obstructive pulmonary disease, with well-known bullous emphysema. Acute on chronic hypoxic respiratory failure, due to the above. Chronic corticosteroid dependence. Pulmonary sarcoidosis. Additional long-term medical problems: 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. Continue anticoagulation with Xarelto. Continue antiarrhythmic with dofetilide. History of QT prolongation. Use telemetry monitoring here in the hospital. Hypertension. Continue Toprol. Hyponatremia. Check daily BMPs. Prostate hypertrophy. Used to straight cath twice a day at home. After [place] catheter was used for UTI in June 2024 now early straight caths. History of heart failure with mildly reduced ejection fraction which most of improved I see no longer requires Entresto. Plan: Hospital admission, inpatient status. Patient is at high risk for COPD exacerbation worsening and opportunistic infections due to emphysema, COPD, and pulmonary sarcoidosis. Solu-Medrol 60 mg IV every 6 hours. DuoNeb 4 times daily with albuterol every 3 hours for breakthrough wheezing. Requesting a sputum culture. Not certain if he will be able to expectorate this. Continuous telemetry monitoring. Daily weights, ideally on a standing scale. Nebulized budesonide, twice a day. Check daily labs. Right now I do not see compelling evidence to start antibiotics for the COPD. I prefer to get a urine sample from a straight cath so he should get a straight cath UA 1 time and then decision to treat UTI based on that. He may have chronic bacterial colonization of the bladder due to his long-term use of straight catheterization over the past few years. It seems nice that he no longer really needs to rely on straight catheterization now. IP vs OBS Justification Based on differential dx, clinical care plan, and risk of adverse events, if untreated, in my clinical judgement this patient requires an acute care setting as: INPATIENT because of an expectation of an over 2 midnight stay. Estimated length of stay (# of days): 3 Documented By: Silvano Reed DO [id number] Signed By: <Electronically signed by Silvano Reed DO> 11/11/24 0330 [facility] Work Phone: History general Narrative - Reported* Type Description Date Medical History sarcoidosis Medical History Lung disease Medical History COPD Surgical History mediastinoscopy Hospitalization History when on coumadin he was bleeding out Hospitalization History [place] [facility] [facility] Other History general Narrative - Reported* Type Description Date Medical History sarcoidosis Medical History Lung disease Medical History COPD Surgical History mediastinoscopy Surgical History COLONOSCOPY Surgical History EGD Hospitalization History when on coumadin he was bleeding out Hospitalization History Breathing Problems [facility] [place] [facility] [place] Other History of Present illness NarrativePatient returns [...] changes in medical therapy and follow-up next year.[facility] 250 DO Work Phone: Hospital course Narrative No data available for this section [facility] Discharge instructions No data available for this section [facility] InstructionsNot on filedocumented in this encounter [facility] this [facility] on filedocumented in this encounter [facility] No data available for this section [facility] reason for referral (narrative)* Consultation (Routine) - Authorized Specialty Diagnoses / Procedures Referred By Contregla t Referred To Contact Cardiology Diagnoses Non-ischemic cardiomyopathy (Multi) Procedures Follow Up In Cardiology Steven Alvares MD [address] [facility], [address] [address] Shannon Gonzalez MD [facility] [facility], [place] [address] [place] [id number] Referral ID Status Reason Start Date Expiration Date V isits Requested Visits Authorized [id number] Authorized 10/13/2023 10/12/2024 1 1 [facility] Work Phone: Rerdes for referral (narrative)No reason for referral [facility] Work [facility]: Reason for visit Narrative* Cardiac Stress Testing (Routine) - Authorized Specialty Diagnoses / Procedures Referred By Contac t Referred To Contact Radiology Diagnoses Fatigue, unspecified type Non-ischemic cardiomyopathy (Multi) Diastolic dysfunction LV (left ventricular) mural thrombus 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 (Multi) Procedures Nuclear Stress Test CHG MYOCARDIAL SPECT MULTIPLE STUDIES Shannon Gonzalez MD [facility] [facility], [place] [address] [place] [id number] Phone: tel: fax: Referral ID Status Reason Start Date Expiration Date V isits Requested Visits Authorized [id number] Authorized 05/24/2024 05/24/2025 5 1 [facility] Work Phone: reason for visit Narrative* Cardiac Stress Testing (Routine) - Authorized Specialty Diagnoses / Procedures Referred By Contac t Referred To Contact Radiology Diagnoses Fatigue, unspecified type Non-ischemic cardiomyopathy (Multi) Diastolic dysfunction LV (left ventricular) mural thrombus 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 (Multi) Procedures Nuclear Stress Test CHG MYOCARDIAL SPECT MULTIPLE STUDIES Shannon Gonzalez MD [address] [facility], [place] [address] [place] [id number] Phone: tel: fax: Referral ID Status Reason Start Date Expiration Date V isits Requested Visits Authorized [id number] Authorized 05/24/2024 05/24/2025 5 1 [facility] Work Phone: reason for visit Narrative* CV Imaging (Routine) - Authorized Specialty Diagnoses / Procedures Referred By Contac t Referred To Contact Cardiology Diagnoses Diastolic dysfunction Non-ischemic cardiomyopathy (Multi) LV (left ventricular) mural thrombus Procedures Transthoracic Echo Complete FL ECHO TTHRC R-T 2D W/WOM-MODE COMPL SPEC&COLR D Shannon Gonzalez MD [facility] [facility], [address] [address] [place] [address] Phone: tel: fax: Referral ID Status Reason Start Date Expiration Date Visits Requested Visits Authorized [id number] Authorized Perform Procedure 4 03/27/2025 1 1 [facility] Work Phone: Summary Purpose Family History Unknown Family Member Name Dates Details S/P CABG [...] Unknown Myocardial infarction Unknown Diabetes mellitus Unknown Relationship Condition Age at Onset Recorded Date/T dulce brother Heart disease Unknown Multiple sclerosis Unknown father Unknown Malignant neoplasm Unknown mother Diabetes mellitus Unknown Heart disease Unknown Myocardial infarction Unknown Unknown History of coronary artery bypass surgery Unknown Advance Directives Advance Directive Response Recorded Date/ Time Advance Directives No April 9:38pm Advance Directive Response Recorded Date/ Time Advance Directives No April 8:38pm Chief Complaint MARY MCADAMS is being seen [...] breath Chronic respiratory failure with hypoxia Hyponatremia Chief Complaint New Onset Afib, CHF Exacerbation Amb Documentation Amb Documentation Hosp f/u has Afib, SOB Amb Documentation Amb Documentation CC Adult Risk Stratification [facility] Reason for Visit Acoustic neuroma Anticoagulated Benign [...] breath Chronic respiratory failure with hypoxia Hyponatremia Atrial fibrillation Chronic HFrEF (heart failure with reduced ejection fraction) Hypertension Nonischemic cardiomyopathy Sarcoidosis of lung Chief Complaint New Onset Afib, CHF Exacerbation Amb Documentation Amb Documentation Hosp f/u has Afib, SOB Amb Documentation Amb Documentation CC Adult Risk Stratification [facility] Encephalopathy Encephalopathy Encephalopathy Encephalopathy Reason for Visit Acoustic neuroma Anticoagulated Benign prostatic hyperplasia with lower urinary tract symptoms Cardiac sarcoidosis Chronic HFrEF (heart failure with reduced ejection fraction) Hypertension New onset atrial fibrillation Pulmonary sarcoidosis Nonischemic cardiomyopathy Atrial fibrillation with RVR Nonsustained paroxysmal ventricular tachycardia Atrial fibrillation Chronic HFrEF (heart failure with reduced ejection fraction) Hypertension Rectal bleeding Nonischemic cardiomyopathy Sarcoidosis of lung Alcohol dependence Atrial fibrillation Hypertension Pulmonary sarcoidosis Acute on chronic clinical systolic heart failure Bullous emphysema Chronic respiratory failure with hypoxia Hyponatremia Lower extremity edema Shortness of breath Abdominal pain Atrial fibrillation Chronic HFrEF (heart failure with reduced ejection fraction) Hypertension Nonischemic cardiomyopathy Sarcoidosis of lung Abdominal pain Alcohol dependence Atrial fibrillation Carotid stenosis, right Chronic HFrEF (heart failure with reduced ejection fraction) Encephalopathy acute Hypertension Mild left ventricular systolic dysfunction Persistent atrial fibrillation Pulmonary sarcoidosis Nonischemic cardiomyopathy Chief Complaint Admit Date New Onset Afib, CHF Exacerbation Septemb 2023 9:23am Amb Documentation February 05, 2024 11:13am Amb Documentation February 12, 2024 3:53pm Hosp f/u February 14, 2024 2: 16pm has Afib, SOB February 28, 2024 1 1:30pm Amb Documentation February 29, 2024 3 :30pm Amb Documentation March 01, 2024 3 :02pm CC Adult Risk Stratification February 11:10am [facility] March 08, 2024 1 :23pm Encephalopathy March 13, 2024 8 :27pm Encephalopathy March 14, 2024 8 :39am Encephalopathy March 15, 2024 1 :41pm Encephalopathy March 16, 2024 4 :17pm Amb Documentation March 21, 2024 7 :58am IP f/u afib -HIGH RISK March 25 1:58pm Reason for Visit Admit Date Acoustic neuroma February 02, 2024 9:23am Anticoagulated February 02, 2024 9:23am Benign prostatic hyperplasia with lower urinary tract symptoms February 02, 2024 9:23am Cardiac sarcoidosis February 02, 2024 9:23am Chronic HFrEF (heart failure with reduced ejection fraction) February 02, 2024 9:23am Hypertension February 02, 2024 9:23am New onset atrial fibrillation February 02, 2024 9:23am Pulmonary sarcoidosis February 01 9:23am Nonischemic cardiomyopathy January 9:23am Atrial fibrillation with RVR January 142023 9:23am Nonsustained paroxysmal ventricular tach ycardia February 02, 2024 9:23am Atrial fibrillation February 14, 2024 2: 16pm Chronic HFrEF (heart failure with reduced ejection fraction) February 14, 2024 2:16pm Hypertension February 14, 2024 2: 16pm Rectal bleeding February 14, 2024 2: 16pm Nonischemic cardiomyopathy February 14, 2024 2:16pm Sarcoidosis of lung February 14, 2024 2: 16pm Alcohol dependence February 28, 2024 1 1:30pm Atrial fibrillation February 28, 2024 1 1:30pm Hypertension February 28, 2024 1 1:30pm Pulmonary sarcoidosis February 28, 2024 11:30pm Acute on chronic clinical systolic heart failure February 28, 2024 11:30pm Bullous emphysema February 28, 2024 1 1:30pm Chronic respiratory failure with hypoxia February 28, 2024 11:30pm Hyponatremia February 28, 2024 1 1:30pm Lower extremity edema February 28, 2024 11:30pm Shortness of breath February 28, 2024 1 1:30pm Abdominal pain March 08, 2024 1 :23pm Atrial fibrillation March 08, 2024 1 :23pm Chronic HFrEF (heart failure with reduced ejection fraction) March 08, 2024 1:23pm Hypertension March 08, 2024 1 :23pm Nonischemic cardiomyopathy March 08, 2024 1:23pm Sarcoidosis of lung March 08, 2024 1 :23pm Abdominal pain March 13, 2024 8 :27pm Alcohol dependence March 13, 2024 8 :27pm Atrial fibrillation March 13, 2024 8 :27pm Carotid stenosis, right March 13 8:27pm Chronic HFrEF (heart failure with reduced ejection fraction) March 13, 2024 8:27pm Encephalopathy acute March 13, 2024 8:27pm Hypertension March 13, 2024 8 :27pm Mild left ventricular systolic dysfuncti on March 13, 2024 8:27pm Persistent atrial fibrillation February 142023 8:27pm Pulmonary sarcoidosis March 13, 2024 8:27pm Nonischemic cardiomyopathy March 13, 2024 8:27pm Atrial fibrillation March 25, 2024 1:58pm Chronic HFrEF (heart failure with reduced ejection fraction) March 25, 2024 1:58pm Encephalopathy March 25, 2024 1:58pm Hypertension March 25, 2024 1:58pm Nonischemic cardiomyopathy March 1:58pm Sarcoidosis of lung March 25, 2024 1:58pm Chief Complaint Admit Date CC Adult Risk Stratification February 11:10am FR:CHF-HIGH RISK March 08, 2024 1 :23pm Encephalopathy March 13, 2024 8 :27pm Encephalopathy March 14, 2024 8 :39am Encephalopathy March 15, 2024 1 :41pm Encephalopathy March 16, 2024 4 :17pm Amb Documentation March 21, 2024 7 :58am IP f/u afib -HIGH RISK March 25 1:58pm Encephalopathy, Afib, HTN March 26, 2024 12:45pm 4 WK F/U RT ICA STENOSIS May 01, 2024 10:49am 3 month f/u-HIGH RISK June 03, 2024 2:25pm Reason for Visit Admit Date Abdominal pain March 08, 2024 1 :23pm Atrial fibrillation March 08, 2024 1 :23pm Chronic HFrEF (heart failure with reduced ejection fraction) March 08, 2024 1:23pm Hypertension March 08, 2024 1 :23pm Nonischemic cardiomyopathy March 08, 2024 1:23pm Sarcoidosis of lung March 08, 2024 1 :23pm Abdominal pain March 13, 2024 8 :27pm Alcohol dependence March 13, 2024 8 :27pm Atrial fibrillation March 13, 2024 8 :27pm Carotid stenosis, right March 13 8:27pm Chronic HFrEF (heart failure with reduced ejection fraction) March 13, 2024 8:27pm Encephalopathy acute March 13, 2024 8:27pm Hypertension March 13, 2024 8 :27pm Mild left ventricular systolic dysfuncti on March 13, 2024 8:27pm Nonischemic cardiomyopathy March 13, 2024 8:27pm Persistent atrial fibrillation February 142023 8:27pm Pulmonary sarcoidosis March 13, 2024 8:27pm Encephalopathy March 25, 2024 1:58pm Atrial fibrillation March 25, 2024 1:58pm Chronic HFrEF (heart failure with reduced ejection fraction) March 25, 2024 1:58pm Hypertension March 25, 2024 1:58pm Nonischemic cardiomyopathy March 1:58pm Sarcoidosis of lung March 25, 2024 1:58pm Altered mental status May 01 10:49am Hypotension June 03, 2024 2 :25pm Rectal bleeding June 03, 2024 2 :25pm Atrial fibrillation June 03, 2024 2 :25pm Chronic HFrEF (heart failure with reduced ejection fraction) June 03, 2024 2:25pm Nonischemic cardiomyopathy June 03, 2024 2:25pm Sarcoidosis of lung June 03, 2024 2 :25pm Chief Complaint Admit Date 4 WK F/U RT ICA STENOSIS May 01, 2024 10:49am 3 month f/u-HIGH RISK June 03, 2024 2:25pm confusion, weakness July 03, 2024 10:39pm Reason for Visit Admit Date Altered mental status May 01 10:49am Hypotension June 03, 2024 2 :25pm Rectal bleeding June 03, 2024 2 :25pm Atrial fibrillation June 03, 2024 2 :25pm Chronic HFrEF (heart failure with reduced ejection fraction) June 03, 2024 2:25pm Nonischemic cardiomyopathy June 03, 2024 2:25pm Sarcoidosis of lung June 03, 2024 2 :25pm Altered mental status July 03 10:39pm Compression fracture of body of thoracic vertebra July 03, 2024 10:39pm Fall July 03, 2024 10:39pm Weakness July 03, 2024 10:39pm Chief Complaint Admit Date 4 WK F/U RT ICA STENOSIS May 01, 2024 10:49am 3 month f/u-HIGH RISK June 03, 2024 2:25pm confusion, weakness July 03, 2024 10:39pm confusion, weakness July 06, 2024 4:35pm Reason for Visit Admit Date Altered mental status May 01 10:49am Hypotension June 03, 2024 2 :25pm Rectal bleeding June 03, 2024 2 :25pm Atrial fibrillation June 03, 2024 2 :25pm Chronic HFrEF (heart failure with reduced ejection fraction) June 03, 2024 2:25pm Nonischemic cardiomyopathy June 03, 2024 2:25pm Sarcoidosis of lung June 03, 2024 2 :25pm Abnormal QT interval present on electroc ardiogram July 03, 2024 10:39pm Acute UTI July 03, 2024 10:39pm Altered mental status July 03 10:39pm Compression fracture of body of thoracic vertebra July 03, 2024 10:39pm Fall July 03, 2024 10:39pm Pulmonary sarcoidosis July 03 10:39pm UTI (urinary tract infection) June 152024 10:39pm Weakness July 03, 2024 10:39pm Chief Complaint Admit Date 4 WK F/U RT ICA STENOSIS May 01, 2024 10:49am 3 month f/u-HIGH RISK June 03, 2024 2:25pm confusion, weakness July 03, 2024 10:39pm confusion, weakness July 06, 2024 4:35pm f/u sarcoidosis July 15, 2024 2:55 pm Reason for Visit Admit Date Altered mental status May 01 10:49am Hypotension June 03, 2024 2 :25pm Rectal bleeding June 03, 2024 2 :25pm Atrial fibrillation June 03, 2024 2 :25pm Chronic HFrEF (heart failure with reduced ejection fraction) June 03, 2024 2:25pm Nonischemic cardiomyopathy June 03, 2024 2:25pm Sarcoidosis of lung June 03, 2024 2 :25pm Abnormal QT interval present on electroc ardiogram July 03, 2024 10:39pm Acute UTI July 03, 2024 10:39pm Altered mental status July 03 10:39pm Compression fracture of body of thoracic vertebra July 03, 2024 10:39pm Fall July 03, 2024 10:39pm Pulmonary sarcoidosis July 03 10:39pm UTI (urinary tract infection) June 152024 10:39pm Weakness July 03, 2024 10:39pm Cardiac sarcoidosis July 15, 2024 2:55 pm History of aspergilloma July 15, 2024 2:55pm Bullous emphysema July 15, 2024 2:55 pm Chronic respiratory failure with hypoxia July 15, 2024 2:55pm Pulmonary sarcoidosis July 15, 2024 2: 55pm Chief Complaint Admit Date confusion, weakness July 03, 2024 10:39pm confusion, weakness July 06, 2024 4:35pm f/u sarcoidosis July 15, 2024 2:55 pm Amb Documentation August 01, 2024 10: 57am 3 month f/u-HIGH RISK September 02, 2024 2 :26pm Reason for Visit Admit Date Abnormal QT interval present on electroc ardiogram July 03, 2024 10:39pm Acute UTI July 03, 2024 10:39pm Altered mental status July 03 10:39pm Compression fracture of body of thoracic vertebra July 03, 2024 10:39pm Fall July 03, 2024 10:39pm Pulmonary sarcoidosis July 03 10:39pm UTI (urinary tract infection) June 152024 10:39pm Weakness July 03, 2024 10:39pm Bronchiectasis, uncomplicated July 15, 2024 2:55pm Cardiac sarcoidosis July 15, 2024 2:55 pm History of aspergilloma July 15, 2024 2:55pm Bullous emphysema July 15, 2024 2:55 pm Chronic respiratory failure with hypoxia July 15, 2024 2:55pm Pulmonary sarcoidosis July 15, 2024 2: 55pm Atrial fibrillation September 02, 2024 2:2 6pm Chronic HFrEF (heart failure with reduced ejection fraction) September 02, 2024 2:26pm Nonischemic cardiomyopathy September 02, 2 025 2:26pm Sarcoidosis of lung September 02, 2024 2:2 6pm Chief Complaint Admit Date 3 month f/u-HIGH RISK September 02, 2024 2 :26pm dif breathing November 11, 2024 3:15 am Reason for Visit Admit Date Anemia September 02, 2024 2:2 6pm Atrial fibrillation September 02, 2024 2:2 6pm Chronic HFrEF (heart failure with reduce d ejection fraction) September 02, 2024 2:26pm Chronic respiratory failure with hypoxia September 02, 2024 2:26pm Hyponatremia September 02, 2024 2:2 6pm Nonischemic cardiomyopathy September 02, 2 025 2:26pm Sarcoidosis of lung September 02, 2024 2:2 6pm Acute exacerbation of chroni c obstructive pulmonary disease (COPD) November 11, 2024 3:15am Acute UTI November 11, 2024 3:15 am Arrhythmia November 11, 2024 3:15 am Breath shortness November 11, 2024 3:15 am Bullous emphysema November 11, 2024 3:15 am Chronic respiratory failure with hypoxia November 11, 2024 3:15am Corticosteroid dependence November 11 3:15am 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 October 3:15am 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, 2024 3: 15am Chief Complaint Admit Date 3 month f/u-HIGH RISK September 02, 2024 2 :26pm dif breathing November 11, 2024 3:15 am Amb Documentation November 12, 2024 8:50a m Chief Complaint Admit Date 3 month f/u-HIGH RISK September 02, 2024 2 :26pm dif breathing November 11, 2024 3:15 am Amb Documentation November 12, 2024 8:50a m [facility] [place] November 19, 2024 11:39 am Reason for Visit Admit Date Anemia September 02, 2024 2:2 6pm Atrial fibrillation September 02, 2024 2:2 6pm Chronic HFrEF (heart failure with reduce d ejection fraction) September 02, 2024 2:26pm Chronic respiratory failure with hypoxia September 02, 2024 2:26pm Hyponatremia September 02, 2024 2:2 6pm Nonischemic cardiomyopathy September 02, 025 2:26pm Sarcoidosis of lung September 02, 2024 2:2 6pm Acute exacerbation of chroni c obstructive pulmonary disease (COPD) November 11, 2024 3:15am Acute UTI November 11, 2024 3:15 am Bullous emphysema November 11, 2024 3:15 am Chronic respiratory failure with hypoxia November 11, 2024 3:15am Corticosteroid dependence November 11 3:15am 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, 2024 3: 15am Arrhythmia November 11, 2024 3:15 am Breath shortness November 11, 2024 3:15 am 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 October 3:15am Acute exacerbation of chroni c obstructive pulmonary disease (COPD) November 19, 2024 11:39am Anemia November 19, 2024 11:39 am Atrial fibrillation November 19, 2024 11:39 am Chronic HFrEF (heart failure with reduce d ejection fraction) November 19, 2024 11:39am Chronic respiratory failure with hypoxia November 19, 2024 11:39am Hyponatremia November 19, 2024 11:39 am Nonischemic cardiomyopathy November 19 11:39am 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, 2024 11:39 am Acute cystitis November 19, 2024 11:39 am Chief Complaint Admit Date dif breathing November 11, 2024 3:15 am Amb Documentation November 12, 2024 8:50a m [facility] [place]/u-[place] RIS[place] November 19, 2024 11:39 am cataract January 02, 2025 3: 23pm Reason for Visit Admit Date Bullous emphysema November 11, 2024 3:15 am Chronic respiratory failure with hypoxia November 11, 2024 3:15am 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, 2024 3: 15am Acute exacerbation of chroni c obstructive pulmonary disease (COPD) November 11, 2024 3:15am Acute UTI November 11, 2024 3:15 am Arrhythmia November 11, 2024 3:15 am Breath shortness November 11, 2024 3:15 am Corticosteroid dependence November 11 3:15am 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 October 3:15am Anemia November 19, 2024 11:39 am Atrial fibrillation November 19, 2024 11:39 am Chronic HFrEF (heart failure with reduce d ejection fraction) November 19, 2024 11:39am Chronic respiratory failure with hypoxia November 19, 2024 11:39am Nonischemic cardiomyopathy November 19 11:39am 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, 2024 11:39 am Acute exacerbation of chroni c obstructive pulmonary disease (COPD) November 19, 2024 11:39am Acute cystitis November 19, 2024 11:39 am Chief Complaint Admit Date dif breathing November 11, 2024 3:15 am Amb Documentation November 12, 2024 8:50a m [facility] [place]/u-[place] RIS[place] November 19, 2024 11:39 am cataract January 02, 2025 3: 23pm Shortness of Breath January 05, 2025 1: 53am Reason for Visit Admit Date Bullous emphysema November 11, 2024 3:15 am Chronic respiratory failure with hypoxia November 11, 2024 3:15am 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, 2024 3: 15am Acute exacerbation of chroni c obstructive pulmonary disease (COPD) November 11, 2024 3:15am Acute UTI November 11, 2024 3:15 am Arrhythmia November 11, 2024 3:15 am Breath shortness November 11, 2024 3:15 am Corticosteroid dependence November 11 3:15am 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 October 3:15am Anemia November 19, 2024 11:39 am Atrial fibrillation November 19, 2024 11:39 am Chronic HFrEF (heart failure with reduce d ejection fraction) November 19, 2024 11:39am Chronic respiratory failure with hypoxia November 19, 2024 11:39am Nonischemic cardiomyopathy November 19 11:39am 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, 2024 11:39 am Acute exacerbation of chroni c obstructive pulmonary disease (COPD) November 19, 2024 11:39am Acute cystitis November 19, 2024 11:39 am Acute on chronic hypoxic respiratory erika lure January 05, 2025 1:53am History of sarcoidosis January 05, 2025 1:53am Non-ST elevation UT (NSTEMI) December 1:53am Reason for Visit Admit Date Bullous emphysema November 11, 2024 3:15 am Chronic respiratory failure with hypoxia November 11, 2024 3:15am 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, 2024 3: 15am Acute exacerbation of chroni c obstructive pulmonary disease (COPD) November 11, 2024 3:15am Acute UTI November 11, 2024 3:15 am Arrhythmia November 11, 2024 3:15 am Breath shortness November 11, 2024 3:15 am Corticosteroid dependence November 11 3:15am 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 October 3:15am Anemia November 19, 2024 11:39 am Atrial fibrillation November 19, 2024 11:39 am Chronic HFrEF (heart failure with reduce d ejection fraction) November 19, 2024 11:39am Chronic respiratory failure with hypoxia November 19, 2024 11:39am Nonischemic cardiomyopathy November 19 11:39am 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, 2024 11:39 am Acute exacerbation of chroni c obstructive pulmonary disease (COPD) November 19, 2024 11:39am Acute cystitis November 19, 2024 11:39 am Acute on chronic hypoxic respiratory erika lure January 05, 2025 1:53am History of sarcoidosis January 05, 2025 1:53am Non-ST elevation [place] (NSTEMI) December 1:53am Takotsubo cardiomyopathy January 05 1:53am Additional Source Comments (unrecognized sect ion and content) No Status Records FoundNo Status Records FoundNo Status Records FoundNo Status Records FoundNo Status Records FoundNo Status Records FoundNo Status Records FoundNo Status Records Found INFORMATION SOURCE (unrecogn ized section and content) DATE CREATED AUTHOR 12/30/2018 [facility] DATE CREATED AUTHOR AUTHOR'S ORGANIZ ATION 04/30/2021 [employer] DATE CREATED AUTHOR AUTHOR'S ORGANIZ ATION 09/09/2022 [facility] DATE CREATED AUTHOR AUTHOR'S ORGANIZ ATION 08/10/2024 [facility] DATE CREATED AUTHOR AUTHOR'S ORGANIZ ATION 08/11/2024 [facility] DATE CREATED AUTHOR AUTHOR'S ORGANIZ ATION 08/13/2024 [facility] DATE CREATED AUTHOR AUTHOR'S ORGANIZ ATION 01/11/2025 [facility] DATE CREATED AUTHOR AUTHOR'S ORGANIZ ATION 01/16/2025 [facility] [employer] Developer Teams (unrecognized sec tion and content) Team Status: Active Member Role Status Dates Adam Del Valle DO Primary Care Provider Active Team Status: Inactive Member Role Status Dates Adam Del Valle DO Primary Care Provider Active Start: May 01, 2024 End: May 01, 2024 Baudilio Moura MD Attending Provider Active Start: May 01, 2024 End: May 01, 2024 Team Status: Active Member Role Status Dates Adam Del Valle DO Primary Care Provide r, Attending Provider Active Start: May 22, 2024 Team Status: Inactive Member Role Status Dates Adam Del Valle DO Primary Care Provide r, Attending Provider Active Start: June 03, 2024 End: June 03, 2024 Team Status: Inactive Member Role Status Dates Adam Del Valle DO Primary Care Provider Active Start: July 03, 2024 End: July 09, 2024 Susanne Motley MD Emergency Provider Active Start: July 03, 2024 End: July 09, 2024 Altaf Jones MD Admit Provider, Atte nding Provider Active Start: July 03, 2024 End: July 09, 2024 Shannon Gonzalez MD Other Provider Active Start: July 03, 2024 End: July 09, 2024 Team Status: Active Member Role Status Dates Adam Del Valle DO Primary Care Provider Active Start: July 06, 2024 Susanne Motley MD Emergency Provider Active Start: July 06, 2024 Altaf Jones MD Admit Provider Active Start: July 06, 2024 Ambrose Hsieh MD Other Provider Active Start: F ebruary 2024 Shannon Gonzalez MD Other Provider Active Start: July 06, 2024 Andres Herrera MD Attending Provider Activ e Start: July 06, 2024 Team Status: Active Member Role Status [...] February 02, 2024 End: February 04, 2024 Ning Godoy APRN Other Provider Active Start : February 02, 2024 End: February 04, 2024 Cheli Wood MD Other Provider Active Start: Dinh grace 2023 End: February 04, 2024 Damien Gonzalez MD Other Provider Active Start: February 02, 2024 End: February 04, 2024 Kimani Wolfe MD Other Provider Active Start: Dinh grace 2023 End: February 04, 2024 Karina Morocho , [facility] Other Provider Active Sta rt: February 02, 2024 End: February 04, 2024 Team Status: Inactive Member Role Status Dates Adam Del Valle DO Primary Care Provider Active Gregg Hilliard , DO Attending Provider Active Associate Professor Of History Relationship Specialty Start Date End Date Adam Del Valle DO [address] [place] [address] PCP - General Internal Medicine 10/13/23 Team [...] February 14, 2024 End: February 14, 2024 Associate Professor Of History Relationship Specialty Start Date End Date Adam Del Valle DO [address] [place] [address] PCP - General Internal Medicine 10/13/23 Team Status: Active Member Role Status Dates Adam Del Valle DO Primary Care Provide r, Attending Provider Active Start: February 02, 2024 Team Status: Active Member Role Status Dates Adam Del Valle DO Primary Care Provider Active Start: February 28, 2024 Sin Mabry DO Emergency Provider Active Sta rt: February 28, 2024 Silvano Reed , Admit Provider , Attending Provider Active Start: February 28, 2024 Team Status: Inactive Member Role Status Dates Adam Del Valle DO Primary Care Provider Active Start: February 28, 2024 End: March 01, 2024 Sin Mabry DO Emergency Provider Active Sta rt: February 28, 2024 End: March 01, 2024 Silvano Reed , DO Admit Provider Active Start: February 28, [...] Attending Provider Active Start: March 01, 2024 Team Status: Active Member Role Status Dates Adam Del Valle , DO Primary Care Provide r, Attending Provider Active Start: March 06, 2024 Team Status: Active Member Role Status Dates Adam Del Valle , DO Primary Care Provide r, Attending Provider Active Start: March 07, 2024 Team Status: Inactive Member Role Status Dates Adam Del Valle DO Primary Care Provide r, Attending Provider Active Start: March 08, 2024 End: March 08, 2024 Team Status: Active Member Role Status Dates Adam Del Valle DO Primary Care Provider Active Start: March 13, 2024 [place] Attending Provider Active Start: March 13, 2024 Team Status: Inactive Member Role Status Dates Adam Del Valle DO Primary Care Provider Active Start: March 13, 2024 End: March 20, 2024 Gabriela Nobles MD Admit Provider Active Start: O ctober 2023 End: March 20, 2024 Altaf Jones MD Attending Provider Active St art: March 13, 2024 End: March 20, 2024 Shannon Gonzalez MD Referring Provider Active St art: March 13, 2024 End: March 20, 2024 Eriberto Stover DO Other Provider Active Start: March 13, 2024 End: March 20, 2024 Ijeoma Alvares MD Other Provider Active Start: Oc tober 2023 End: March 20, 2024 Hasmukh Mace MD Other Provider Active Start: O ctober 2023 End: March 20, 2024 Nuvia Keita APRN Other Provider Active St art: March 13, 2024 End: March 20, 2024 Freddie Reid Jr DO Other Provider Active S tart: March 13, 2024 End: March 20, 2024 Gutierrez Jo MD Other Provider Active Start: March 13, 2024 End: March 20, 2024 Baudilio Moura MD Other Provider Active Start: March 13, 2024 End: March 20, 2024 Team Status: Active Member Role Status Dates Adam Del Valle DO Primary Care Provider Active Start: March 14, 2024 Gabriela Nobles MD Admit Provider Active Start: O ctober 2023 Altaf Jones MD Other Provider Active Start: March 14, 2024 Eriberto Stover , DO Other Provider Active Start: March 14, 2024 Ijeoma Alvares MD Other Provider Active Start: Oc tober 2023 Hasmukh Mace MD Other Provider Active Start: O ctober 2023 Nuvia Keita , WRAP CHECKER Other Provider Active St art: March 14, 2024 Freddie Reid Jr, DO Other Provider Active S tart: March 14, 2024 Gutierrez Jo MD Other Provider Active Start: March 14, 2024 Baudilio Moura MD Other Provider Active Start: March 14, 2024 Ramonita Tang RN Other Provider Active Star t: March 14, 2024 Judith Rodriguez DO Other Provider Active Start : March 14, 2024 Shannon Gonzalez MD Other Provider Active Start: March 14, 2024 Steven Alvares MD Other Provider Active Start: March 14, 2024 Chacho Burroughs MD Other Provider Active St art: March 14, 2024 Casey Harper MD Other Provider Active Start: March 14, 2024 Ning Godoy WRAP CHECKER Other Provider Active Start : March 14, 2024 Cheli Wood MD Other Provider Active Start: O ctober 2023 Damien Gonzalez MD Other Provider Active Start: March 14, 2024 Kimani Wolfe MD Other Provider Active Start: O ctober 2023 Karina Morocho SENIOR TECHNICAL BUSINESS ANALYST-BC Other Provider Active Sta rt: March 14, 2024 Lula Muniz NP-C Attending Provider Active Start: March 14, 2024 Team Status: Active Member Role Status Dates Adam Del Valle DO Primary Care Provider Active Start: March 15, 2024 Gabriela Nobles MD Admit Provider Active Start: N ov2023 Altaf Jones MD Other Provider Active Start: March 15, 2024 Eriberto Stover , Other Provider Active Start: March 15, 2024 Ijeoma Alvares MD Other Provider Active Start: No vember 2023 Hasmukh Mace MD Other Provider Active Start: N ov2023 Nuvia Keita APRN Other Provider Active St art: March 15, 2024 Freddie Reid Jr, DO Other Provider Active S tart: March 15, 2024 Gutierrez Jo MD Attending Pr corinneer, Other Provider Active Start: March 15, 2024 Baudilio Moura MD Other Provider Active Start: March 15, 2024 Ramonita Tang RN Other Provider Active Star t: March 15, 2024 Judith Rodriguez DO Other Provider Active Start : March 15, 2024 Shannon Gonzalez MD Other Provider Active Start: March 15, 2024 Steven Alvares MD Other Provider Active Start: March 15, 2024 Chacho Burroughs MD Other Provider Active St art: March 15, 2024 Casey Harper MD Other Provider Active Start: March 15, 2024 Ning Godoy APRN Other Provider Active Start : March 15, 2024 Cheli Wood MD Other Provider Active Start: N 2023 Damien Gonzalez MD Other Provider Active Start: March 15, 2024 Kimani Wolfe MD Other Provider Active Start: N 2023 Karina Morocho , SENIOR TECHNICAL BUSINESS ANALYST- Other Provider Active Sta rt: March 15, 2024 Team Status: Active Member Role Status Dates Adam Del Valle DO Primary Care Provider Active Start: March 16, 2024 Gabriela Nobles MD Admit Provider Active Start: N 2023 Altaf Jones MD Other Provider Active Start: March 16, 2024 Ramonita Tang RN Other Provider Active Star t: March 16, 2024 Judith Rodriguez DO Other Provider Active Start : March 16, 2024 Shannon Gonzalez MD Other Provider Active Start: March 16, 2024 Steven Alvares MD Other Provider Active Start: March 16, 2024 Chacho Burroughs MD Other Provider Active St art: March 16, 2024 Casey Harper MD Other Provider Active Start: March 16, 2024 Ning Godoy APRN Other Provider Active Start : March 16, 2024 Cheli Wood MD Other Provider Active Start: N ov2023 Damien Gonzalez MD Other Provider Active Start: March 16, 2024 Kimani Wolfe MD Other Provider Active Start: N ov2023 Karina Morocho , SENIOR TECHNICAL BUSINESS ANALYST- Other Provider Active Sta rt: March 16, 2024 Eriberto Stover , DO Other Provider Active Start: March 16, 2024 Ijeoma Alvares MD Other Provider Active Start: No vember 2023 Hasmukh Mace MD Other Provider Active Start: N 2023 Nuvia Keita APRN Other Provider Active St art: March 16, 2024 Freddie Reid Jr, DO Other Provider Active S tart: March 16, 2024 Gutierrez Jo MD Other Provider Active Start: March 16, 2024 Baudilio Moura MD Other Provider Active Start: March 16, 2024 Andres Herrera MD Attending Provider Activ e Start: March 16, 2024 Associate Professor Of History Relationship Specialty Start Date End Date Adam Del Valle DO [address] [place] [address] PCP - General Internal Medicine 10/13/23 Team Status: Active Member Role Status Dates Adam Del Valle DO Primary Care Provide r, Attending Provider Active Start: March 13, 2024 Team Status: Active Member Role Status Dates Adam Del Valle DO Primary Care Provider Active Start: March 21, 2024 Juliette Davis CMA Attending Provider Active Start: March 21, 2024 Team Status: Inactive Member Role Status Dates Adam Del Valle DO Primary Care Provide r, Attending Provider Active Start: March 25, 2024 End: March 25, 2024 Team Status: Inactive Member Role Status Dates Adam Del Valle DO Primary Care Provide r, Attending Provider Active Start: March 26, 2024 End: March 26, 2024 Associate Professor Of History Relationship Specialty Start Date End Date Adam Del Valle DO [address] [place] [address] PCP - General Internal Medicine 10/13/23 Team Status: Active Member Role Status Dates Adam Del Valle DO Primary Care Provide r, Attending Provider Active Start: April 09, 2024 Associate Professor Of History Relationship Specialty Start Date End Date Adam Del Valle DO [address] [place] [address] PCP - General Internal Medicine 10/13/23 Associate Professor Of History Relationship Specialty Start Date End Date Adam Del Valle DO [address] [place] [address] PCP - General Internal Medicine 10/13/23 Associate Professor Of History Relationship Specialty Start Date End Date Adam Del Valle DO [address] [place] [address] PCP - General Internal Medicine 10/13/23 Associate Professor Of History Relationship Specialty Start Date End Date Adam Del Valle DO [address] [place] [place] [address] PCP - General Internal Medicine 10/13/23 Team Status: Active Member Role Status Dates Adam Del Valle DO Primary Care Provider Active Start: July 03, 2024 Susanne Motley MD Emergency Provider Active Start: July 03, 2024 Altaf Jones MD Admit Provider, Atte nding Provider Active Start: July 03, 2024 Team Status: Inactive Member Role Status Dates Adam Del Valle DO Primary Care Provider Active Start: July 15, 2024 End: July 15, 2024 Issa Marx DO Attending Provider Active St art: July 15, 2024 End: July 15, 2024 Associate Professor Of History Relationship Specialty Start Date End Date Adam Del Valle DO [address] [place] [address] PCP - General Internal Medicine 10/13/23 Associate Professor Of History Relationship Specialty Start Date End Date Adam Del Valle DO [address] [place] [address] PCP - General Internal Medicine 10/13/23 Team Status: Active Member Role Status Dates Adam Del Valle DO Primary Care Provider Active Start: August 01, 2024 Juliette Davis CMA Attending Provider Active Start: August 01, 2024 Team Status: Inactive Member Role Status Dates Adam Del Valle DO Primary Care Provide r, Attending Provider Active Start: September 02, 2024 End: September 02, 2024 Associate Professor Of History Relationship Specialty Start Date End Date Adam Del Valle DO [address] [place] [address] PCP - General Internal Medicine 10/13/23 Team Status: Inactive Member Role Status Dates Adam Del Valle DO Primary Care Provider Active Start: September 02, 2024 End: September 02, 2024 Adam Del Valle DO Attending Provider Active Sta rt: September 02, 2024 End: September 02, 2024 Team Status: Active Member Role Status Dates Adam Del Valle DO Primary Care Provider Active Start: November 11, 2024 Hasmukh Vides DO Emergency Provider Active S tart: November 11, 2024 Silvano Reed DO Admit Provider Active Start: November 11, 2024 Silvano Reed DO Attending Provider Active Start: November 11, 2024 Team Status: Inactive Member Role Status Dates Adam Del Valle DO Primary Care Provider Active Start: November 11, 2024 End: November 12, 2024 Hasmukh Vides DO Emergency Provider Active S tart: November 11, 2024 End: November 12, 2024 Silvano Reed DO Admit Provider Active Start: November 11, 2024 End: November 12, 2024 Hoang Conner DO Attending Provider Active St art: November 11, 2024 End: November 12, 2024 Team Status: Active Member Role Status Dates Adam Del Valle DO Primary Care Provider Active Start: November 12, 2024 Juliette Davis CMA Attending Provider Active Start: November 12, 2024 Team Status: Inactive Member Role Status Dates Adam Del Valle DO Primary Care Provider Active Start: November 19, 2024 End: November 19, 2024 Adam Del Valle DO Attending Provider Active Sta rt: November 19, 2024 End: November 19, 2024 Team Status: Inactive Member Role Status Dates Adam Del Valle DO Primary Care Provider Active Start: January 02, 2025 End: January 02, 2025 Josue Beavers MD Attending Provider Active Start: January 02, 2025 End: January 02, 2025 Team Status: Active Member Role Status Dates Adam Del Valle DO Primary Care Provider Active Start: January 05, 2025 Cee Proctor DO Emergency Provider Active S tart: January 05, 2025 Elsie Leonard MD Admit Provider Active Start : January 05, 2025 Elsie Leonard MD Attending Provider Active S tart: January 05, 2025 Team Status: Inactive Member Role Status Dates Adam Del Valle DO Primary Care Provider Active Start: January 05, 2025 End: January 09, 2025 Cee Proctor , Emergency Provider Active S tart: January 05, 2025 End: January 09, 2025 Elsie Leonard MD Admit Provider Active Start : January 05, 2025 End: January 09, 2025 Jostin Larose DO Attending Provider Active St art: January 05, 2025 End: January 09, 2025 Associate Professor Of History Relationship Specialty Start Date End Date Adam Del Valle DO [address] [place] [address] PCP - General Internal Medicine 10/13/23 Juliette Perla RN Care Flash Developer 01/09/25 Associate Professor Of History Relationship Specialty Start Date End Date Adam Del Valle DO [address] [place] [place] [address] PCP - General Internal Medicine 10/13/23 Brown, Juliette, skin graderFlash Developer 01/09/25 Goals (unrecognized section and content) Type Treatment Intervention Code Status: Full Code Goals may be documented in an alternate section REASON FOR VISIT (unrecogniz ed section and content) Reason Comments Follow-up 1 yr Reason Comments Atrial Fibrillation EKG Specialty Diagnoses / Procedures Referred By Contac t Referred To Contact Diagnoses Atrial fibrillation, unspecified type (Multi) Procedures ECG 12 Lead Shannon Gonzalez MD [address], [place] [address] [place] [id number] Referral ID Status Reason Start Date Expiration Date V isits Requested Visits Authorized [id number] Authorized 02/05/2024 02/04/2025 1 1 Reason Comments [place] [facility] [place] Specialty Diagnoses / Procedures Referred By Contac t Referred To Contact Diagnoses Atrial fibrillation, unspecified type (Multi) Procedures ECG 12 Lead Shannon Gonzalez MD [address], [address] [address] Phone: tel: fax: Referral ID Status Reason Start Date Expiration Date V isits Requested Visits Authorized [id number] Authorized 03/27/2024 03/27/2025 1 1 Reason Comments Hospital Follow[place] [facility] [place] Diagnoses / Procedures Referred By Contac t Referred To Contact Cardiology Diagnoses Non-ischemic cardiomyopathy (Multi) Procedures Follow Up In Cardiology Shannon Gonzalez MD [address] [address] Phone: tel: fax: Shannon Gonzalez MD [address], [place] [address] [place] [address] Phone: tel: fax: Referral ID Status Reason Start Date Expiration Date V isits Requested Visits Authorized [id number] Authorized 03/27/2024 03/27/2025 1 1 Reason Comments EKG visit Specialty Diagnoses / Procedures Referred By Contac t Referred To Contact Diagnoses Atrial fibrillation, unspecified type (Multi) Procedures ECG 12 Lead Shannon Gonzalez MD [address], [address] [address] Phone: tel: fax: Referral ID Status Reason Start Date Expiration Date V isits Requested Visits Authorized [id number] Authorized 07/09/2024 07/09/2025 1 1 Reason Comments Follow-up 3 month follow up Ec ho Stress results Specialty Diagnoses / Procedures Referred By Contac t Referred To Contact Cardiology Diagnoses Non-ischemic cardiomyopathy (Multi) Procedures Follow Up In Cardiology Shannon Gonzalez MD [address] [place] [address], [place] [id number] Phone: tel: fax: Shannon Gonzalez MD [address] [place] [address], [place] [id number] Phone: tel: fax: Referral ID Status Reason Start Date Expiration Date V isits Requested Visits Authorized [id number] Pending Review 05/24/2024 05/24/2025 1 1 Reason Comments Hospital Follow-up TCM for Cardiomyopat hy Specialty Diagnoses / Procedures Referred By Contac t Referred To Contact Diagnoses High risk medication use Procedures ECG 12 Lead Ning Godoy, WRAP 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 [address] [place] [address], [address] [address] Phone: tel: fax: Referral ID Status Reason Start Date Expiration Date V isits Requested Visits Authorized [id number] Authorized 01/15/2025 01/15/2026 1 1 Reason Comments Follow-up EKG visit Specialty Diagnoses / Procedures Referred By Contac t Referred To Contact Diagnoses High risk medication use Procedures ECG 12 Lead Ning Godoy, WRAP 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 [address] [place] [address], [address] [address] Phone: tel: fax: Referral ID Status Reason Start Date Expiration Date V isits Requested Visits Authorized [id number] Authorized 01/16/2025 01/16/2026 1 1 FOR RECORDS PERTAINING TO PATIENTS [...] BE BASED ON THE PRIMARY CLINICAL RECORDS. [facility] [facility]. provides no warranty or guarantee of the accuracy or completeness of information in this document.
[2025-01-17 13:17] LABS: Hematocrit 33.4 % (42.0-54.0); Hemoglobin 11.0 g/dL (14.0-18.0); Immature Granulocytes Abs Auto 0.29 10^3/uL (0.00-0.03); Immature Granulocytes Pct Auto 1.6 % (0.0-0.5); Lymphocytes Absolute Auto 1.9 10^3/uL (1.2-3.8); Mean Corpuscular HGB Conc 32.9 g/dL (29.9-35.2); Mean Corpuscular Hemoglobin 28.6 pg (25.9-34.0); Mean Corpuscular Volume 86.8 fL (80.0-94.0); Platelet Count 331 10^3/uL (150-450); Red Blood Count 3.85 10^6/uL (4.70-6.10); White Blood Count 17.9 10^3/uL (4.0-11.0)
[2025-01-17 14:14] LABS: Anion Gap 11.3; Blood Urea Nitrogen 32.0 mg/dL (7.0-18.0); Calcium 8.5 mg/dL (8.5-10.1); Carbon Dioxide 29.8 mmol/L (21.0-32.0); Chloride 104 mmol/L (98-107); Estimated GFR (African America >60 (>=60 mL/min/1.73m^2); Estimated GFR (Non-African Ame >60 (>=60 mL/min/1.73m^2); Glucose 76 mg/dL (74-106); Magnesium 1.9 mg/dL (1.8-2.4); Potassium 3.1 mmol/L (3.5-5.1); Sodium 142 mmol/L (136-145)
[2025-01-17 14:28] LABS: NT Pro B Type Natriuretic Pept 2617.0 pg/mL (<=900.0)
== END 2025-01-17 12:42 | disposition home or self-care (01) ==
LOC: LAB 12:41
PROVIDERS: PCP Internal Medicine; Visit Provider Nurse Practitioner
DX: I48.0 Paroxysmal atrial fibrillation (principal); I51.81 Takotsubo syndrome; Z79.01 Long term (current) use of anticoagulants; I42.8 Other cardiomyopathies
CPT/HCPCS: 36415; 80048; 83735; 83880; 85025

== ENCOUNTER 2025-01-30 12:08 | Outpatient (OUT) | payer MEDICARE, SELFPAY ==
--- OUTSIDE RECORDS SUMMARY | 2025-01-15 08:30 | XMS_ITS | Encounter Summary ---
Author Organization [facility] Address [address] [place] [address] Phone Care Team Providers Care Appliquer Zigzag Name Role Phone Dejan Adam Marge KING Primary Care Provider [phone] Juliette Perla RN Unavailable Unavailable Reason for Referral * Imaging (Routine) - Authorized Specialty Diagnoses / Procedures Referred By Contac t Referred To Contact Radiology Diagnoses Cardiac sarcoidosis Procedures MR cardiac morphology and function w and wo IV contrast Ning Godoy APRN-CNP [address] [address], [address] [address] Phone: tel: fax: Referral ID Status Reason Start Date Expiration Date Visits Requested Visits Authorized [id number] Authorized Perform Procedure 01/16/2025 02/15/2026 1 1 * Cardiovascular (Routine) - Authorized Specialty Diagnoses / Procedures Referred By Contac t Referred To Contact Diagnoses High risk medication use Procedures ECG 12 Lead Ning Godoy APRN-CNP [facility] [address], [address] [address] Phone: tel: fax: Referral ID Status Reason Start Date Expiration Date V isits Requested Visits Authorized [id number] Authorized 01/16/2025 01/16/2026 1 1 * Consultation (Routine) - Authorized Specialty Diagnoses / Procedures Referred By Contac t Referred To Contact Cardiology Diagnoses Takotsubo syndrome Procedures Follow Up In Cardiology Ning Godoy APRN-CNP [facility], [address] [address] Phone: tel: fax: Shannon Santaan MD [facility], [address] [address] Phone: tel: fax: Referral ID Status Reason Start Date Expiration Date V isits Requested Visits Authorized [id number] Authorized 01/15/2025 01/15/2026 1 1 * Cardiovascular (Routine) - Pending Review Specialty Diagnoses / Procedures Referred By Oleg t Referred To Contact Cardiology Diagnoses 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 (Multi) Takotsubo syndrome Cardiac sarcoidosis Procedures 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 Ning Godoy APRN-CNP [facility], [address] [address] Phone: tel: fax: Referral ID Status Reason Start Date Expiration Date V isits Requested Visits Authorized [id number] Pending Review 01/15/2025 01/15/2026 1 1 * CV Imaging (Routine) - Pending Review Specialty Diagnoses / Procedures Referred By Oleg t Referred To Contact Cardiology Diagnoses Takotsubo syndrome Procedures Transthoracic Echo Limited IA ECHO TRANSTHORC R-T 2D W/WO M-MODE REC F-UP/LMTD IA DOPPLER ECHO COLOR FLOW VELOCITY MAPPING IA DOPPLER ECHO PULSE WAVE W/SPECTRAL F-UP/LMTD STD Ning Godoy APRN-CNP [facility], [address] [address] Phone: tel: fax: Referral ID Status Reason Start Date Expiration Date Visits Requested Visits Authorized [id number] Pending Review Perform Procedure 01/15/2025 01/15/2026 1 1 * Cardiovascular (Routine) - Authorized Specialty Diagnoses / Procedures Referred By Contac t Referred To Contact Diagnoses High risk medication use Procedures ECG 12 Lead Ning Godoy APRN-CNP [address] [place] [address] 2, [address] [address] Phone: tel: fax: Referral ID Status Reason Start Date Expiration Date V isits Requested Visits Authorized [id number] Authorized 01/15/2025 01/15/2026 1 1 Reason for Visit * Reason Comments Hospital Follow-up TCM for Cardiomyopat hy * Cardiovascular (Routine) - Authorized Specialty Diagnoses / Procedures Referred By Oleg buitrago Referred To Contact Diagnoses High risk medication use Procedures ECG 12 Lead Ning Godoy APRN-CNP [address] [place] [address] 2, [address] [address] Phone: tel: fax: Referral ID Status Reason Start Date Expiration Date V isits Requested Visits Authorized [id number] Authorized 01/15/2025 01/15/2026 1 1 Encounter Details Date Type Department Care Team (Late st Contact Info) Description 01/15/2025 8:30 AM EDT Office Visit [facility] [address] [phone] Ning Godoy APRN-CNP [address] [place] [address] 2, [address] [address] High risk medication use (Primary Dx); 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 (Multi); penitentiary (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; Takotsubo syndrome; BMI < 18.5; Cardiac sarcoidosis; Chewing tobacco use; Other cardiomyopathy; LV dysfunction Discharge Disposition: Home Social History Tobacco Use Types Packs/Day Years Used Date Smoking Tobacco: Never Smokeless Tobacco: Current Chew Alcohol Use Standard Drinks/Week Comments Never 0 (1 standard drink = 0.6 oz pur e alcohol) Sex and Gender Information Value Date Recorded Sex Assigned at Not on file Legal Sex Male 8:50 AM EST Gender Identity Not on file Sexual Orientation Not on file documented as of this encounter Last Filed Vital Signs Vital Sign Reading Time Taken Comments Blood Pressure 78/52 01/15/2025 8:48 AM EDT Pulse 91 01/15/2025 8:48 AM EDT Temperature - - Respiratory Rate - - Oxygen Saturation - - Inhaled Oxygen Concentration - - Weight - - Height 182.9 cm (6') 01/15/2025 8:48 AM EDT Body Mass Index - - documented in this encounter Patient Instructions * Patient Instructions* DANICA Arguelles - 01/15/2025 8:30 AM EDT Please bring all medicines, vitamins, and herbal supplements with you when you come to the office. Prescriptions will not be filled unless you are compliant with your follow up appointments or have a follow up appointment scheduled as per instruction of your physician. Refills should be requested at the time of your visit. EKG done in office today PLAN: Through informed decision making process incorporating patients unique circumstances, the followingtreatment plan will be initiated: 1. Prescription drug management of cardiovascular medication for efficacy, adherence to treatment, side effect assessment and polypharmacy. Current treatment clinically warranted and to continue withfollowing modifications: - Stop valsartan (making BP too low) - Reduce lasix to as needed 2. Labs (cbc, chem6, MG. bnp) 3. 24 hour holter (cardiac sarcoidosis, PAF, bigeminy) 4. Limited echo in one month (follow up Takotsubo) 5. Return for follow-up; in the interim, contact the office if new symptoms arise. Dr. Santana after testing Clinical scenario reviewed in detail with Dr. Santnaa Will proceed with cMRI for cardiac sarcoidosis ECG for Qtc documented in this encounter Progress Notes * DANICA Arguelles - 01/15/2025 8:30 AM EDT Chief Complaint 'just feeling the same as usual' Reason for Visit Patient presents to the office today for outpatient follow-up for hospital follow up. Last evaluated in clinic by Dr. Santana October 2024. Presents today in wheelchair, has been utilizing oxygen consistently for couple of months now. Accompanied by family member. December 2024: [place] [facility] [place] Seen in Cardiology consult Dr. Burroughs - diagnosed with Type II NSTEMI; echo at bedside by Dr. Burroughs report as apical ballooning EF 25% consistent with Takosubo. No PAF during admit. At discharge added valsartan 40mg, farxiga 10mg and lasix 40mg. History of Present Illness Patient is a pleasant 6-year-old gentleman who presents to the office today where he feels like hisbreathing remains at baseline, his activity is fairly limited reports he can walk approximately 10 feet at home and this is pretty consistent with his history. He denies orthopnea or PND. In the office today systolic blood pressure is 78 and he reports no dizzier than usual . He denies any historyof syncope, no near syncope. Denies any type of palpitations. Patient reports that overall has no complaint(s) of chest pain, chest pressure/discomfort, claudication, exertional chest pressure/discomfort, and lower extremity edema Extensive record review reveals 2016 cardiac MRI with cardiac sarcoidosis. He has had varying QTc levels on dofetilide over the last 8 months. In the office today he has bigeminy which is new to him,unable to assess QTc. He was placed on Lasix 40 mg at time of discharge [facility] Also inpatient findings were reported to be Takotsubo, there was no cardiac catheterization that was completed. In the past he has been unable to tolerate IVANA inhibitor and is not tolerating today due to hypotension. Will obtain repeat labs, discontinue Lasix and valsartan. Repeat limited echocardiogram in 4 weeks,due to bigeminy check 48-hour Holter to rule out any type of malignant ventricular arrhythmia. Clinical scenario will be reviewed in detail with Dr. Santana tomorrow. Questionable need to repeat cardiac MRI to follow-up on cardio sarcoidosis versus referral to EP for EP study plus or minus ICD implant. Continues to abstain from alcohol. Review of Systems Cardiovascular: Negative for chest pain, dyspnea on exertion, irregular heartbeat, leg swelling, near-syncope, orthopnea, palpitations, paroxysmal nocturnal dyspnea and syncope. Respiratory: Positive for shortness of breath. Visit Vitals BP 78/52 (BP Location: Right arm, Patient Position: Sitting) Pulse 91 Ht 1.829 m (6') BMI 18.58 kg/m?? Smoking Status Never BSA 1.78 m?? Physical Exam Vitals and nursing note reviewed. Constitutional: Appearance: Normal appearance. He is underweight. Cardiovascular: Rate and Rhythm: Normal rate and regular rhythm. Heart sounds: Murmur heard. Systolic murmur is present with a grade of 2/6. Pulmonary: Effort: Pulmonary effort is normal. Breath sounds: Examination of the right-lower field reveals decreased breath sounds. Examination ofthe left-lower field reveals decreased breath sounds. Decreased breath sounds present. Musculoskeletal: Cervical back: Full passive range of motion without pain. Right lower leg: No edema. Left lower leg: No edema. Skin: General: Skin is cool. Neurological: Mental Status: He is alert and oriented to person, place, and time. Psychiatric: Attention and Perception: Attention normal. Mood and Affect: Mood normal. Behavior: Behavior is cooperative. ALLERGIES: Patient has no known allergies. Current Outpatient Medications Medication Instructions acetaminophen (TYLENOL) 500 mg, Every 4 hours PRN albuterol (Ventolin HFA) 90 mcg/actuation inhaler 2 puffs, Every 4 hours PRN aspirin 81 mg, Daily atorvastatin (LIPITOR) 40 mg, Daily dapagliflozin propanediol (FARXIGA) 10 mg, Every 24 hours dofetilide (TIKOSYN) 250 mcg, oral, Every 12 hours finasteride (Proscar) 5 mg tablet 1 tablet, Daily fluticasone propion-salmeteroL (Advair Diskus) 500-50 mcg/dose diskus inhaler 1 puff furosemide (LASIX) 20 mg, oral, Daily PRN ipratropium-albuteroL (Duo-Neb) 0.5-2.5 mg/3 mL nebulizer solution 3 mL, Every 6 hours PRN latanoprost (Xalatan) 0.005 % ophthalmic solution 1 drop, Nightly magnesium hydroxide (Milk of Magnesia) 400 mg/5 mL suspension Daily PRN magnesium oxide (MAG-OX) 400 mg, oral, Daily menthol (Biofreeze, menthol,) 4 % gel gel Apply topically. metoprolol succinate XL (TOPROL-XL) 25 mg, oral, Nightly, Do not crush or chew. multivitamin (Multiple Vitamins) tablet 1 tablet, Daily pantoprazole (PROTONIX) 40 mg, Daily potassium chloride CR 10 mEq ER tablet 10 mEq, Daily rivaroxaban (XARELTO) 20 mg, oral, Daily with evening meal spironolactone (ALDACTONE) 12.5 mg, Daily tamsulosin (Flomax) 0.4 mg 24 hr capsule 1 capsule, 2 times daily valACYclovir (VALTREX) 1,000 mg, 2 times daily Assessment: High risk medication use Prior amiodarone failure Dofetilide 250mcg BID - start date Mar 2024 ECG in office today bigeminy Cr. 0.Jun hospitalization reported Qtc prolongation on dofetlide 250 mcg BID. Jan 09, 2025: inpatient ECG Qtc 548 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 (Multi) Maintaining NSR during December 2024 hospitalization Last PAF Mar 2024 (was on amiodarone at the time and changed to dofetilide) LV dysfunction Jan 2015: TTE LVEF 25% August 2015: cMRI LVEF 58% July 2024: TTE LVEF 50% Dec 2024 hospitalization: Reported EF 25-30% with apical ballooning consistent with takotsubo CM (documented as addendum on Cardiology consult) then EF documented 45-50% on discharge summary (final report not in EMR) Meds: toprol, aldactone, farxiga. In past has not been able to tolerate valsartan - was re challenged to low dose at recent dischargeand has symptomatic hypotension penitentiary (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 CHADS VASc 2 anticoagulated on full dose Xarelto CR 0.86 Denies bleeding diathesis Discharge Hgb 9.9 In 2014 had GIB on coumadin (for LV thrombus) Chewing tobacco use Discussed risk of continued usage Cardiac and Vasculature July 2015 cardiac cath: angiographically normal coronaries May 2024 MPI No ischemia/infarct EF 57% Cardiac sarcoidosis August 2015 cMRI EF 58% Cardiac sarcoidosis involvement basal inferior wall and basal inferior septum. Plan: Through informed decision making process incorporating patients unique circumstances, the followingtreatment plan will be initiated: 1. Prescription drug management of cardiovascular medication for efficacy, adherence to treatment, side effect assessment and polypharmacy. Current treatment clinically warranted and to continue withfollowing modifications: - Stop valsartan (making BP too low) - Reduce lasix to as needed 2. Labs (cbc, chem6, MG. bnp) 3. 24 hour holter (cardiac sarcoidosis, PAF, bigeminy) 4. Limited echo in one month (follow up Takotsubo) 5. Return for follow-up; in the interim, contact the office if new symptoms arise. Dr. Santana after testing Clinical scenario reviewed in detail with Dr. Santana Will proceed with cMRI for cardiac sarcoidosis ECG for Qtc tomorrow Ning Godoy MSN, PROJECTS MANAGER-PURLER, PMHNP-[facility] [place], [place] Please excuse any errors in grammar or translation related to this dictation. Voice recognition software was utilized to prepare this document. documented in this encounter Miscellaneous Notes * Assessment & Plan Note - DANICA Arguelles - 01/16/2025 2:10 PM EDT Associated Problem(s): Cardiac sarcoidosis August 2015 cMRI EF 58% Cardiac sarcoidosis involvement basal inferior wall and basal inferior septum. * Assessment & Plan Note - DANICA Arguelles - 01/16/2025 2:09 PM EDT Associated Problem(s): Cardiac and Vasculature July 2015 cardiac cath: angiographically normal coronaries May 2024 MPI No ischemia/infarct EF 57% * Assessment & Plan Note - DANICA Arguelles - 01/16/2025 2:08 PM EDT Associated Problem(s): Chewing tobacco use Discussed risk of continued usage * Assessment & Plan Note - DANICA Arguelles - 01/16/2025 2:08 PM EDT Associated Problem(s): penitentiary (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 CHADS VASc 2 anticoagulated on full dose Xarelto CR 0.86 Denies bleeding diathesis Discharge Hgb 9.9 In 2014 had GIB on coumadin (for LV thrombus) * Assessment & Plan Note - DANICA Arguelles - 01/16/2025 2:04 PM EDT Associated Problem(s): LV dysfunction Jan 2015: TTE LVEF 25% August 2015: cMRI LVEF 58% July 2024: TTE LVEF 50% Dec 2024 hospitalization: Reported EF 25-30% with apical ballooning consistent with takotsubo CM (documented as addendum on Cardiology consult) then EF documented 45-50% on discharge summary (final report not in EMR) Meds: toprol, aldactone, farxiga. In past has not been able to tolerate valsartan - was re challenged to low dose at recent dischargeand has symptomatic hypotension * Assessment & Plan Note - DANICA Arguelles - 01/16/2025 1:58 PM EDT Associated Problem(s): 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 (Multi) Maintaining NSR during December 2024 hospitalization Last PAF Mar 2024 (was on amiodarone at the time and changed to dofetilide) * Assessment & Plan Note - DANICA Arguelles - 01/16/2025 1:50 PM EDT Associated Problem(s): High risk medication use Prior amiodarone failure Dofetilide 250mcg BID - start date Mar 2024 ECG in office today sybilincelestino Cr. 0.Jun hospitalization reported Qtc prolongation on dofetlide 250 mcg BID. 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 Cardiac Services Routine 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 (Multi) Takotsubo syndrome Cardiac sarcoidosis 01/17/2025 12:05 PM EDT Scheduled Orders Name Type Priority Associated Diagnoses Orde r Schedule Transthoracic Echo Limited Echocardiography Routine Takotsubo syndrome Expected: 02/14/2025 (Approximate), Expires: 01/15/2027 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 Cardiac Services Routine 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 (Multi) Takotsubo syndrome Cardiac sarcoidosis Expected: 01/15/2025 (Approximate), Expires: 01/15/2027 Basic Metabolic Panel Lab Routine 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 (Multi) Takotsubo syndrome Expected: 01/15/2025 (Approximate), Expires: 01/15/2026 B-Type Natriuretic Peptide Lab Routine 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 (Multi) rn long term care (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 Takotsubo syndrome Other cardiomyopathy Expected: 01/15/2025 (Approximate), Expires: 01/15/2026 CBC Lab Routine 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 (Multi) rn long term care (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 Takotsubo syndrome Expected: 01/15/2025 (Approximate), Expires: 01/15/2026 Magnesium Lab Routine 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 (Multi) penitentiary (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 Takotsubo syndrome Expected: 01/15/2025 (Approximate), Expires: 01/15/2026 documented as of this encounter Procedures Procedure Name Priority Date/Time Associated Diagnosis Comments ECG 12-LEAD Routine 01/15/2025 8:35 AM EDT High risk medication use documented in this encounter Results * MR cardiac morphology and function w and wo IV contrast (01/28/2025 12:02 PM EDT) Anatomical Region Laterality Modality Thoracic, Head neck Magnetic Res onance 01/29/2025 8:49 AM EDT 01/29/2025 8:49 AM EDT Impressions 01/29/2025 8:47 AM EDT 1. Normal left ventricular cavity size and myocardial wall thickness with preserved systolic function. Ejection fraction 52%. 2. Delayed enhancement imaging is normal. No evidence of fibrosis, infiltrative disease, previous myocardial infarction, or inflammation of the left ventricular or right ventricular myocardium. 3. Normal right ventricular cavity size with preserved systolic function. RV EF 61%. MACRO: None Signed by: Hoang Goff 01/29/2025 8:47 AM Dictation workstation: [id number] Narrative 01/29/2025 8:47 AM EDT Interpreted By: Hoang Goff, STUDY: MR CARDIAC MORPHOLOGY AND FUNCTION W AND WO IV CONTRAST; 01/28/2025 12:02 pm INDICATION: Signs/Symptoms:cardiac sarcoidosis, increasing arrhythmia. This study is performed to assess myocardial viability and damage, and to quantitate left ventricular and valvular function. 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 ACCESSION NUMBER(S): [id number] ORDERING CLINICIAN: NING GODOY TECHNIQUE: Siemens1.5 Reina MRI scanner. Axial HASTE for anatomic localization. Steady state free precession (bSSFP) imaging for anatomic definition. Dynamic cine bSSFP for cardiac chamber and wall-motion analysis, and valvular analysis. Flow quantification sequences for hemodynamics. T1/T2/T2 star parametric mapping if indicated Delayed gadolinium enhancement analysis after injection of gadolinium-chelate 25 mL of Dotarem, 0.2 mmol/kg). HT-183 cm; WT-62 kg; BSA-1.78 m2 FINDINGS: CARDIAC CHAMBERS Normal atrioventricular and ventriculoarterial concordance LEFT ATRIUM Normal size (Area-22.4 cm2) RIGHT ATRIUM Normal size (Area-22.4 cm2) INTERATRIAL SEPTUM Intact. LEFT VENTRICLE The left ventricle is normal in size and shape, and has normal global systolic function. There are no segmental wall motion abnormalities. Basal anterior septum 0.9 cm. Posterior wall 0.6 cm. Quantitative left ventricular functional values are as follows: Left ventricular end-diastolic diameter 57 mm. EDV = 146 cc; EDVi = 82 cc/m2 ESV = 70 cc; ESVi = 40 cc/m2 Stroke volume = 75 cc; SVi = 42 cc/m2 LVEF = 52 % Absolute Cardiac Output = 5.8 l/min.; COi = 3.3 l/min/m2 LV mass = 93 gm; LVMi = 52 gm/m2 *Farzaneh AM et al. Normalized left ventricular systolic and diastolic function by steady state free precession cardiovascular magnetic resonance. J Cardiovasc Magn Reson 2006; 8:417-26. Delayed-enhancement imaging reveals uniformly nulled myocardium, signifying that there has been no prior ischemic myocardial damage. There is also no definite evidence of interstitial fibrosis to suggest an infiltrative process. T1 map: 1073 millisecond. T2 map: 58 millisecond. T2 *: 55 millisecond. Normal. No evidence of myocardial iron overload T2 stir: Normal myocardium. No evidence of inflammation. T2 BB: Normal. No evidence of infiltrative disease. RIGHT VENTRICLE The right ventricle appears normal in size, shape, and has normal qualitative systolic function. No segmental wall motion abnormalities. No abnormal delayed enhancement in the myocardium. RV EF 61%. INTERVENTRICULAR SEPTUM Intact. AORTIC VALVE There is trace aortic regurgitation. Flow quantification through the ascending aorta: Forward volume =69 cc/beat Reverse volume = 1 cc/beat Net forward volume = 68 cc/beat Aortic regurgitant fraction = 1 % Aortic valve peak velocity 0.8 m/sec. MITRAL VALVE There is trace-mild mitral regurgitation. TRICUSPID VALVE There is qualitative trace tricuspid regurgitation. 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 Ascending aorta 4.5 cm. PULMONARY ARTERIES The central pulmonary arteries appear normal (MPA-3.8 cm, RPA-2.6 cm, LPA-2.5 cm). SYSTEMIC AND PULMONARY VEINS Normal systemic venous and pulmonary venous return. The SVC and IVC are of normal caliber. Normal pulmonary venous anatomy. CHEST The chest wall is normal. No significant lymphadenopathy or mass is seen in limited images of the mediastinum. Limited imaging through the lungs reveals no gross abnormalities. No pleural effusion. UPPER ABDOMEN Limited imaging through the upper abdomen reveals no abnormalities of the visualized organs. Procedure Note Hoang Goff, DO - 01/29/2025 Interpreted By: Hoang Goff, STUDY: MR CARDIAC MORPHOLOGY AND FUNCTION W AND WO IV CONTRAST; 01/28/2025 12:02 pm INDICATION: Signs/Symptoms:cardiac sarcoidosis, increasing arrhythmia. This study is performed to assess myocardial viability and damage, and to quantitate left ventricular and valvular function. 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 ACCESSION NUMBER(S): [id number] ORDERING CLINICIAN: NING GODOY TECHNIQUE: Siemens1.5 Reina MRI scanner. Axial HASTE for anatomic localization. Steady state free precession (bSSFP) imaging for anatomic definition. Dynamic cine bSSFP for cardiac chamber and wall-motion analysis, and valvular analysis. Flow quantification sequences for hemodynamics. T1/T2/T2 star parametric mapping if indicated Delayed gadolinium enhancement analysis after injection of gadolinium-chelate 25 mL of Dotarem, 0.2 mmol/kg). HT-183 cm; WT-62 kg; BSA-1.78 m2 FINDINGS: CARDIAC CHAMBERS Normal atrioventricular and ventriculoarterial concordance LEFT ATRIUM Normal size (Area-22.4 cm2) RIGHT ATRIUM Normal size (Area-22.4 cm2) INTERATRIAL SEPTUM Intact. LEFT VENTRICLE The left ventricle is normal in size and shape, and has normal global systolic function. There are no segmental wall motion abnormalities. Basal anterior septum 0.9 cm. Posterior wall 0.6 cm. Quantitative left ventricular functional values are as follows: Left ventricular end-diastolic diameter 57 mm. EDV = 146 cc; EDVi = 82 cc/m2 ESV = 70 cc; ESVi = 40 cc/m2 Stroke volume = 75 cc; SVi = 42 cc/m2 LVEF = 52 % Absolute Cardiac Output = 5.8 l/min.; COi = 3.3 l/min/m2 LV mass = 93 gm; LVMi = 52 gm/m2 *Farzaneh AM et al. Normalized left ventricular systolic and diastolic function by steady state free precession cardiovascular magnetic resonance. J Cardiovasc Magn Reson 2006; 8:417-26. Delayed-enhancement imaging reveals uniformly nulled myocardium, signifying that there has been no prior ischemic myocardial damage. There is also no definite evidence of interstitial fibrosis to suggest an infiltrative process. T1 map: 1073 millisecond. T2 map: 58 millisecond. T2 *: 55 millisecond. Normal. No evidence of myocardial iron overload T2 stir: Normal myocardium. No evidence of inflammation. T2 BB: Normal. No evidence of infiltrative disease. RIGHT VENTRICLE The right ventricle appears normal in size, shape, and has normal qualitative systolic function. No segmental wall motion abnormalities. No abnormal delayed enhancement in the myocardium. RV EF 61%. INTERVENTRICULAR SEPTUM Intact. AORTIC VALVE There is trace aortic regurgitation. Flow quantification through the ascending aorta: Forward volume =69 cc/beat Reverse volume = 1 cc/beat Net forward volume = 68 cc/beat Aortic regurgitant fraction = 1 % Aortic valve peak velocity 0.8 m/sec. MITRAL VALVE There is trace-mild mitral regurgitation. TRICUSPID VALVE There is qualitative trace tricuspid regurgitation. 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 Ascending aorta 4.5 cm. PULMONARY ARTERIES The central pulmonary arteries appear normal (MPA-3.8 cm, RPA-2.6 cm, LPA-2.5 cm). SYSTEMIC AND PULMONARY VEINS Normal systemic venous and pulmonary venous return. The SVC and IVC are of normal caliber. Normal pulmonary venous anatomy. CHEST The chest wall is normal. No significant lymphadenopathy or mass is seen in limited images of the mediastinum. Limited imaging through the lungs reveals no gross abnormalities. No pleural effusion. UPPER ABDOMEN Limited imaging through the upper abdomen reveals no abnormalities of the visualized organs. IMPRESSION: 1. Normal left ventricular cavity size and myocardial wall thickness with preserved systolic function. Ejection fraction 52%. 2. Delayed enhancement imaging is normal. No evidence of fibrosis, infiltrative disease, previous myocardial infarction, or inflammation of the left ventricular or right ventricular myocardium. 3. Normal right ventricular cavity size with preserved systolic function. RV EF 61%. MACRO: None Signed by: Hoang Goff 01/29/2025 8:47 AM Dictation workstation: [id number] Ning Godoy APRN-PURLER IMG MRI PROCEDURES Final Result * ECG 12 Lead (01/17/2025 11:07 AM EDT) Narrative [facility] - 01/17/2025 12:41 PM EDT Normal sinus rhythm with ventricular bigeminy, IVCD, abnormal ECG Ning Godoy PROJECTS MANAGER-PURLER ECG ORDERABLES Final Res ult Performing Organization Address [facility] Co de Phone Number CPACS * ECG 12 Lead (01/15/2025 8:35 AM EDT) Narrative [facility] - 01/21/2025 1:23 PM EDT Sinus rhythm with PVCs in a pattern of bigeminy, IVCD, diffuse repolarization normalities, abnormal ECG Ning [employer] PROJECTS MANAGER-PURLER ECG ORDERABLES Final Res ult Performing Organization Address [facility] Co de Phone Number CPACS documented in this encounter Visit Diagnoses Diagnosis High risk medication use- Primary 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 (Multi) Atrial fibrillation rn long term care (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 Long-term (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 Takotsubo syndrome BMI < 18.5 Cardiac sarcoidosis Chewing tobacco use Other cardiomyopathy LV dysfunction Left heart failure High risk medication use Cardiac sarcoidosis documented in this encounter Additional Health Concerns Assessment Noted Time A fall risk assessment has been complete d for the patient 01/15/2025 8:47 AM EDT documented as of this encounter Care Teams Appliquer Zigzag Relationship Specialty Start Date End Date Adam Wylie DO [address] [place] [address] PCP - General Internal Medicine 10/13/23 Juliette Perla, study hall supervisorLand Leasing Information Clerk 01/09/25 documented as of this encounter
--- OUTSIDE RECORDS SUMMARY | 2025-01-17 10:00 | XMS_ITS | Encounter Summary ---
Author Organization [facility] Address [address] [place] [address] Phone Care Team Providers Care Wirer Helper Name Role Phone DejanAdam Marge KING Primary Care Provider [phone] Juliette Perla RN Unavailable Unavailable Reason for Visit * Cardiovascular (Routine) - Pending Review Specialty Diagnoses / Procedures Referred By Contac t Referred To Contact Cardiology Diagnoses 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 (Multi) Takotsubo syndrome Cardiac sarcoidosis Procedures Holter Or Event Generation Engineer Concepción Godoy, LODGE OFFICER-[facility] [address] [facility] [address] [place] [address] Phone: tel: fax: Referral ID Status Reason Start Date Expiration Date V isits Requested Visits Authorized [id number] Pending Review 01/15/2025 01/15/2026 1 1 Encounter Details Date Type Department Care Team (Latest Contact Info) Description 01/17/2025 10:00 AM EDT Ancillary Procedure [facility] [address] [phone] 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 (Multi); Takotsubo syndrome; Cardiac sarcoidosis Discharge Disposition: Home Social History Tobacco Use [...] on file documented as of this encounter Plan of Treatment Upcoming Encounters Date Type Department Care Team (Late st Contact Info) Description 02/18/2025 10:45 AM EDT Appointment [facility] [address] [facility] [address] [place] [phone] 06/11/2025 11:00 AM EST Office Visit [facility] [address] [facility] [address] [place] [phone] Shannon Santana MD [address] [facility] [address] [place] [address] Pending Results Name Type Priority Associated Diagnoses Date /Time Holter Or Event Generation Engineer Cardiac Services Routine 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 (Multi) Takotsubo syndrome Cardiac sarcoidosis 01/17/2025 12:05 PM EDT documented as of this encounter Visit Diagnoses Diagnosis 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 (Multi) Atrial fibrillation Takotsubo syndrome Cardiac sarcoidosis documented in this encounter Additional Health Concerns Assessment Noted Time A fall risk assessment has been complete d for the patient 01/15/2025 8:47 AM EDT documented as of this encounter Care Teams Wirer Helper Relationship Specialty Start Date End Date Adam Wylie DO [address] [place] [address] PCP - General Internal Medicine 10/13/23 Juliette Perla, mdm srTruck Guard 01/09/25 documented as of this encounter
--- OUTSIDE RECORDS SUMMARY | 2025-01-17 11:00 | XMS_ITS | Encounter Summary ---
Author Organization [facility] Address [address] [place] [address] Phone Care Team Providers Care Ore Bridge Operator Name Role Phone DejanAdam Marge KING Primary Care Provider [phone] Juliette Perla RN Unavailable Unavailable Reason for Visit * Reason Comments Follow-up EKG visit * Cardiovascular (Routine) - Authorized Specialty Diagnoses / Procedures Referred By Contac t Referred To Contact Diagnoses High risk medication use Procedures ECG 12 Lead Concepción Godoy, EMERGENCY DEPARTMENT CLINICIAN-[facility] [address] [facility] [address], [facility] [address] [place] [address] Phone: tel: fax: Referral ID Status Reason Start Date Expiration Date V isits Requested Visits Authorized [id number] Authorized 01/16/2025 01/16/2026 1 1 Encounter Details Date Type Department Care Team (Latest Contact Info) Description 01/17/2025 11:00 AM EDT Ancillary Procedure [place] [id number] [address] [phone] Maya Fuentes CMA High risk medication use Discharge Disposition: Home Social History Tobacco Use [...] Sign Reading Time Taken Comments Blood Pressure 94/46 01/17/2025 11:12 AM EDT Pulse 92 01/17/2025 11:12 AM EDT Temperature - - Respiratory Rate - - Oxygen Saturation - - Inhaled Oxygen Concentration - - Weight 62.1 kg (137 lb) 01/17/2025 11:12 AM EDT Height 182.9 cm (6') 01/17/2025 11:12 AM EDT Body Mass Index 18.58 01/17/2025 11:12 AM EDT documented in this encounter Progress Notes * Maya Fuentes CMA - 01/17/2025 11:00 AM EDT Patient here for EKG visit ordered by Concepción Godoy SERVICE BAR CASHIER due to prolong QTc. Concepción Godoy SERVICE BAR CASHIER in suite to review EKG prior to discharge. Medication list Updated verbally. Patient complains of shortness of breath, lightheadedness, fatigue and weakness. Patient has no other cardiac complaints at time of visit. To Dr. Santana to read Vitals: 01/17/25 1112 BP: (!) 94/46 BP Location: Left arm Patient Position: Sitting Pulse: 92 Weight: 62.1 kg (137 lb) Height: 1.829 m (6') EKG done in office today documented in this encounter Plan of Treatment Upcoming Encounters Date Type Department Care Team (Late st Contact Info) Description 02/18/2025 10:45 AM EDT Appointment [place] [id number] [facility] [address] [place] [address] 06/11/2025 11:00 AM EST Office Visit [facility] [address] [place] [address] Shannon Santana MD [address] [facility] [place] [address] documented as of this encounter Procedures Procedure Name Priority Date/Time Associated Diagnosis Comments ECG 12-LEAD Routine 01/17/2025 11:07 AM EDT High risk medication use documented in this encounter Results * ECG 12 Lead (01/17/2025 11:07 AM EDT) Narrative [facility] - 01/17/2025 12:41 PM EDT Normal sinus rhythm with ventricular bigeminy, IVCD, abnormal ECG us Concepción Godoy EMERGENCY DEPARTMENT CLINICIAN-BANDER AND CELLOPHANER MACHINE HELPER ECG ORDERABLES Final Res ult [facility] documented in this encounter Visit Diagnoses Diagnosis High risk medication use documented in this encounter Additional Health Concerns Assessment Noted Time A fall risk assessment has been complete d for the patient 01/15/2025 8:47 AM EDT documented as of this encounter Care Teams Ore Bridge Operator Relationship Specialty Start Date End Date Adam Wylie DO [address] [place] [address] PCP - General Internal Medicine 10/13/23 Juliette Perla, boat repairerTrain Clerk 01/09/25 documented as of this encounter
--- OUTSIDE RECORDS SUMMARY | 2025-01-21 09:37 | XMS_ITS | Continuity of Care Document ---
Author Organization [facility] Address [address] [place] [address] Phone Care Team Providers Care Photographic Process Attendant Name Role Phone Adam Wylie DO Primary Care Provider Hasmukh Vides DO Emergency Provider [phone] Silvano Reed DO Admit Provider Hoang Conner DO Attending Provider Juliette Davis CMA Attending Provider Unavaila ble Adam Wylie DO Attending Provider [phone] Josue Beavers MD Attending Provider Cee Proctor DO Emergency Provider Elsie Leonard MD Admit Provider Jostin Larose DO Attending Provider [phone] Concepción Godoy APRN Attending Provider [phone] Nick Muniz MD Attending Provider Care Teams Patient Care Team Team Status: Active Member Role Status Dates Adam Wylie DO Primary Care Provider Active Visit Care Team Team Status: Inactive Member Role Status Dates Adam Wylie DO Primary Care Provider Active Start: November 11, 2024 End: November 12, 2024 Hasmukh Vides DO Emergency Provider Active S tart: November 11, 2024 End: November 12, 2024 Silvano Reed DO Admit Provider Active Start: November 11, 2024 End: November 12, 2024 Hoang Conner DO Attending Provider Active St art: November 11, 2024 End: November 12, 2024 Visit Care Team Team Status: Active Member Role Status Dates Adam Wylie DO Primary Care Provider Active Start: November 12, 2024 Juliette Davis CMA Attending Provider Active Start: November 12, 2024 Visit Care Team Team Status: Inactive Member Role Status Dates Adam Wylie DO Primary Care Provider Active Start: November 19, 2024 End: November 19, 2024 Adam Wylie DO Attending Provider Active Sta rt: November 19, 2024 End: November 19, 2024 Visit Care Team Team Status: Inactive Member Role Status Dates Adam Wylie DO Primary Care Provider Active Start: January 02, 2025 End: January 02, 2025 Josue Beavers MD Attending Provider Active Start: January 02, 2025 End: January 02, 2025 Visit Care Team Team Status: Inactive Member Role Status Dates Adam Wylie DO Primary Care Provider Active Start: January 05, 2025 End: January 09, 2025 Cee Proctor DO Emergency Provider Active S tart: January 05, 2025 End: January 09, 2025 Elsie Leonard MD Admit Provider Active Start : January 05, 2025 End: January 09, 2025 Jostin Larose DO Attending Provider Active St art: January 05, 2025 End: January 09, 2025 Patient Care Team Team Status: Active Member Role Status Dates Adam Wylie DO Primary Care Provider Active Start: January 10, 2025 Juliette Davis CMA Attending Provider Active Start: January 10, 2025 Patient Care Team Team Status: Active Member Role Status Dates Adam Wylie DO Primary Care Provider Active Start: January 17, 2025 Concepción Godoy APRN Attending Provider Active S tart: January 17, 2025 Patient Care Team Team Status: Inactive Member Role Status Dates Adam Wylie DO Primary Care Provider Active Start: January 21, 2025 End: January 21, 2025 Nick Muniz MD Attending Provider Active Start: January 21, 2025 End: January 21, 2025 Chief Complaint and Reason for Visit Chief Complaint Admit Date dif breathing November 11, 2024 3:15 am Amb Documentation November 12, 2024 8:50a [place] [facility] [place] November 19, 2024 11:39 am cataract January 02, 2025 3: 23pm Shortness of Breath January 05, 2025 1: 53am Amb Documentation January 10, 2025 7: 40am COTA: 6 mo f/u Sarcoidosis January 21, 2025 1:09pm Reason for Visit Admit Date Bullous emphysema [...] 11:39 am Chronic HFrEF (heart failure with reduced ejection fraction) November 19, 2024 11:39am Chronic respiratory failure with hypoxia November 19, 2024 11:39am Nonischemic cardiomyopathy November 19 11:39am 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, 2024 11:39 am Acute exacerbation of chroni c obstructive pulmonary disease (COPD) November 19, 2024 11:39am Acute cystitis November 19, 2024 11:39 am Takotsubo cardiomyopathy January 05 1:53am Acute on chronic hypoxic respiratory erika lure January 05, 2025 1:53am History of sarcoidosis January 05, 2025 1:53am Non-ST elevation MS (NSTEMI) December 1:53am Bronchiectasis, uncomplicated January 21, 2025 1:09pm Bullous emphysema January 21, 2025 1:09pm Cardiac sarcoidosis January 21, 2025 1:09pm Chronic respiratory failure with hypoxia January 21, 2025 1:09pm History of aspergilloma January 21, 2 025 1:09pm Pulmonary sarcoidosis January 21 1:09pm Reason for Referral Referring Provider Name Referring Provider Address Referring Provider Phone Referral Date Requested Appointment Date Referral Reason Silvano Lindbloom [address] [facility] [address] Work Phone: Follow-up with your Primary Care Provider, call office to reschedule if needed. Elsie Leonard [address] [facility] [id number] Work Phone: Follow-up with your Primary Care Provider, call office to reschedule if needed. You have b een scheduled for a follow up appointment for the following date and time, please call to reschedule if needed. Health Concerns Concerns A [facility] screening has identified you as FRAIL [...] Four Ways to Beat the Frailty Risk [email or web address] A [facility] screening has identified you as FRAIL [...] Four Ways to Beat the Frailty Risk [email or web address] [email or web address] Allergies, Adverse Reactions, Alerts Allergen Type Severity Reaction Last Updated Verified Status No Known Allergies Allergy Unknown 2024 1:12pm Yes Active Social History Smoking Status Status Start Date End Date Date of Observa tion Smokes tobacco daily (finding) January 05, 2025 3:56am Observation Status Observation Response Date of Response Legal Sex Male (finding) Sex Assigned At Male 1955 Social History Assessments Assessment Value Date Recorded SDOH Follow up November 13, 2024 3 :19pm Question Answer Date Recorded Has the SDOH screening changed since admission? N November 13, 2024 3:19pm Assessment Value Date Recorded SDOH Follow up November 11, 2024 2:28pm Question Answer Date Recorded Has the SDOH screening changed since admission? N November 11, 2024 2:28pm Assessment Value Date Recorded SDOH Follow up January 08 3:32pm Question Answer Date Recorded Has the SDOH screening changed since admission? N January 08, 2025 3:32pm Assessment Value Date Recorded SDOH Follow up January 06 1:55pm Question Answer Date Recorded Has the SDOH screening changed since admission? N January 06, 2025 1:55pm Family History Relationship Condition Age at Onset Recorded Date/T dulce brother Heart disease Unknown Multiple sclerosis Unknown father Unknown Malignant neoplasm Unknown mother Diabetes mellitus Unknown Heart disease Unknown Myocardial infarction Unknown Unknown History of coronary artery bypass surgery Unknown Problems Active Problems Medical Problem Onset Date Status Comments Bullous emphysema Unknown Active Bronchiectasis, uncomplicated Unknown Active Chronic respiratory failure with hypoxia Unknown Active History of aspergilloma Unknown Active H/O non-ST elevation myocard ial infarction (NSTEMI) Unknown Active Anticoagulated Unknown Active Pulmonary sarcoidosis Unknown Active Acoustic neuroma Unknown Active Anemia Unknown Active Hypoxemia Unknown Active Atrial fibrillation Unknown Active Cardiac sarcoidosis Unknown Active Hyponatremia Unknown Active Nonischemic cardiomyopathy Unknown Active M RI: cardiac sarcoidosis - 2015,LHC: normal coronary circulation - 2015, Chronic HFrEF (heart failure with reduced ejection fraction) Unknown Active Echo: LVEF 25 % - 01/2015,Echo: LVEF 58% - 08/2015,Echo: LVEF 45-50%, normal RV size/function, mild aortic root dilatation 4.0 cm - 02/2024,Echo: LVEF 50% - 07/2024,Echo: LVEF 45-50%, LAE, LVH, normal RV size/function - 12/2024, Echo: apical balooning w/ LVEF 25-30% - 12/2024 Takotsubo cardiomyopathy 2024 Active Encephalopathy Unknown Active Benign prostatic hyperplasia with lower urinary tract symptoms Unknown Active Personal history of colonic polyps Unknown Active Carotid stenosis, right Unknown Active CTA: 90% right ICA - 02/2024 Inactive/Resolved Problems Medical Problem Onset Date Status Comments UTI (urinary tract infection) Unknown Resolved Alcohol dependence Unknown Resolved Mild left ventricular systolic dysfunction Unknown Resolved Lower extremity edema Unknown Resolved Encephalopathy acute Unknown Resolved Pulmonary sarcoidosis Unknown Resolved Sarcoidosis of lung Unknown Resolved Shortness of breath Unknown Resolved Acute on chronic clinical systolic heart failure Unkno wn Resolved Acute on chronic hypoxic respiratory failure Unknown Resolved Non-ST elevation MS (NSTEMI) Unknown Resolved Nonsustained paroxysmal ventricular tachycardia Unknow n Resolved Compression fracture of body of thoracic vertebra Unkn own Resolved Persistent atrial fibrillation Unknown Resolved Weakness Unknown Resolved Abnormal QT interval present on electrocardiogram Unkn own Resolved Acute UTI Unknown Resolved Altered mental status Unknown Resolved History of sarcoidosis Unknown Resolved Acute exacerbation of chroni c obstructive pulmonary disease (COPD) Unknown Resolved Abdominal pain Unknown Resolved Hypertension Unknown Resolved Fall Unknown Resolved Atrial fibrillation with RVR Unknown Resolved Medications Medication Status Dose Units Route Directions Qty Days St art Date Stop Date End Date Instructions Adherence Fluticasone Propion-Napoleon meterol (Wixela Inhub) 500-50 mcg/dose blister with device Discont inued 1 INH INHALA TION Twice daily 180 90 September 15, 2023 4:51pm October 23, 2023 3:25p m Albuterol Sulfate 90 mcg/actuati on HFA aerosol inhaler Discont inued 0 .ROUTE .COMPLEX 18 October 23, 2023 5:53pm Febru 2024 11:25 am INHALE 2 PUFFS BY MOUTH EVERY 6 HOURS NEEDED Ipratropium [place] 0.02 % solution Discont inued 0.5 MG INHALA TION Four times daily 300 30 2023 8:52am Jane 2023 12:51 pm Ipratropium -Albuterol 0.5 mg-3 mg(2.5 mg base)/3 mL solution for nebulizatio n Discont inued 0 .ROUTE .COMPLEX 360 2023 12:51p m Septe 2023 11:36 am INHALE 2.5ML VIA NEBULIZER FOUR TIMES DAILY FOR 30 DAYS Ipratropium -Albuterol 0.5 mg-3 mg(2.5 mg base)/3 mL solution for nebulizatio n Discont inued 3 ML INHALA TION Four times daily 360 30 Janem 2023 11:26a m Augus t 2024 3:08p m Pantoprazol e 40 mg tablet,lucina yed release (DR/EC) Discont inued 0 .ROUTE .COMPLEX 90 Octobe r 2023 7:41pm Febru wandy 2024 11:25 am TAKE 1 TABLET BY MOUTH ONCE DAILY ON AN EMPTY STOMACH 30 MINUTES prior to BREAKFAST Tamsulosin 0.4 mg capsule Discont inued 0.4 MG PO Twice daily 60 30 Novemb er 2023 9:49am August 11, 2024 5:17p m Potassium Chloride (Klor-Con 10) 10 mEq tablet extended release Discont inued 10 MEQ PO Daily 30 30 Novemb er 2023 1:00am [facility] cyn 2023 2:33p m Potassium Chloride (Klor-Con 10) 10 mEq tablet extended release Discont inued 10 MEQ PO Daily 30 30 Novemb er 2023 1:00am November 19, 2024 12:13 pm Furosemide 20 mg tablet Discont inued 20 MG PO Daily 30 30 Novemb er 2023 1:34pm [facility] cyn 2023 12:37 pm Valsartan 40 mg tablet Discont inued 20 MG PO Twice daily 30 30 Dece er 2023 1:00am [facility] cyn 2023 2:28p m Valsartan 40 mg tablet Discont inued 20 MG PO Twice daily 30 30 Decemb er 2023 2:28pm Mayua ry 2024 12:33 pm Valsartan 40 mg tablet Discont inued 20 MG PO Daily 15 Mayuar y 2024 12:32p m Febru [email or web address] 11:25 am On Hold: None Tamsulosin 0.4 mg capsule Active 0 .ROUTE .COMPLEX 60 August 11, 2024 5:17pm TAKE 1 CAPSULE BY MOUTH TWICE DAILY Complies with drug therapy Furosemide 40 mg tablet Active 40 MG PO Daily as needed for edema 30 2024 8:35pm Complies with drug therapy Fluticasone Propion-Napoleon meterol 500-50 mcg/dose blister with device Discont inued INHALA TION 2024 12:00a m Janua ry 2024 3:41p m Rivaroxaban (Xarelto) 20 mg Tablet Discont inued 20 MG PO Daily with breakfast 30 Janem cyn 2023 12:00a m Augus t 2024 3:08p m Further refills per Cardiology with Dr. Santana. Amiodarone 200 mg Tablet Discont inued 400 MG PO Twice daily 28 7 Octobe r 2023 12:00a m Novem cyn 2023 1:50p m Amiodarone 200 mg tablet Discont inued 200 MG PO Twice daily 60 30 Octobe r 2023 12:00a m Novem cyn 2023 1:50p m start after you complete 400 mg twice daily for 7 days Carvedilol 6.25 mg Tablet Discont inued 6.25 MG PO Twice daily Dece er 2017 1:00am [facility] cyn 2017 2:03p m Polysacchar marybel Iron Complex (Ferrex 150) 150 mg iron Capsule Discont inued 150 MG PO Daily Dece er 2017 1:00am Septe er 2018 12:11 am Prednisone 5 mg Tablet Discont inued 5 MG PO Daily [facility] er 2017 1:00am [facility] cyn 2017 2:13p m Amoxicillin 875 mg Tablet Discont inued 875 MG PO Twice daily [facility] er 2017 1:00am Febru wandy 2018 2:03a m Fluticasone Propion-Napoleon meterol (Advair Diskus) 500-50 mcg/dose Blister With Device Discont inued 1 INH INHALA TION Twice daily [facility] er 2017 1:00am [facility] cyn 2017 2:03p m Albuterol Sulfate (Ventolin Hfa) 90 mcg/actuati on Hfa Aerosol Inhaler Discont inued 2 PUFF INHALA TION Q6H as needed for Shortness Of Breath Or Wheezing Dece er 2017 1:00am October 23, 2023 3:25p m Tiotropium [place] (Spiriva With Handihaler) 18 mcg Capsule, W/Inhalatio n Device Discont inued 1 CAP INHALA TION Daily [facility] 2017 1:00am September 08, 2023 3:46p m Sacubitril- Valsartan (Entresto) 24-26 mg Tablet Discont inued 1 TAB PO Twice daily [facility] 2017 1:00am November 11, 2024 2:39a m Ipratropium -Albuterol 0.5 mg-3 mg(2.5 mg base)/3 mL Solution For Nebulizatio n Discont inued 3 ML INHALA TION every 6 to 8 hours as needed for Wheezing [facility] 2017 1:00am October 12, 2023 2:02p m Fluticasone Propionate 50 mcg/actuati on [place]ion Discont inued 1 SPRAY INTRAN MERI Daily [facility] 2017 1:00am [facility] 2018 12:13 am Carvedilol 12.5 mg Tablet Discont inued 12.5 MG PO Twice daily 60 [facility] 2017 1:00am [facility] 2018 12:10 am Prednisone 5 mg Tablet Discont inued 5 MG PO Daily 0 [facility] 2017 2:13pm [facility]2018 1:44p m Continue after Medrol dose-man is finished Furosemide (Lasix) 40 mg tablet Discont inued 40 MG PO Daily 30 [facility] 2017 1:00am [facility] 2018 12:10 am Methylpredn isolone (Medrol (Man)) 4 mg tablets,dos e pack Discont inued 0 PO per package directions 21 [facility] 2017 1:00am [facility]2018 1:34p m PO PER PKG DIR Fluticasone Propion-Anpoleon meterol (Advair Hfa) 230-21 mcg/actuati on HFA aerosol inhaler Discont inued 2 INH INHALA TION Twice daily 8 [facility] 2017 1:00am October 12, 2023 2:01p m Prednisone 20 mg tablet Discont inued 20 MG PO As Directed 2018 1:00am [facility] 2018 12:07 am administer with food or milk. Take 40mg for 3 days,then 20 mg for 3 days, then 10 mg for 3 days, then continue 5 mg as you used to take Cephalexin 500 mg capsule Discont inued 500 MG PO Twice daily 10 5 2018 1:00am Septe er 2018 12:10 am Prednisone 20 mg tablet Discont inued 5 MG PO Daily Jan 2018 12:15a m September 08, 2023 3:45p m Carvedilol 12.5 mg tablet Discont inued 12.5 MG PO Twice daily 2018 12:09a m September 08, 2023 3:44p m Amoxicillin -Pot Clavulanate (Augmentin) 875-125 mg tablet Discont inued 1 TAB PO Q12H 20 10 2018 12:00a m October 25, 2021 2:09p m Eat yogurt or take probiotic while on antibiotic. Tamsulosin 0.4 mg capsule Discont inued 0.4 MG PO Daily October 25, 2021 12:00a m October 25, 2021 2:10p m Furosemide 20 mg tablet Discont inued 20 MG PO Daily October 25, 2021 12:00a m September 08, 2023 3:46p m Finasteride 5 mg tablet Discont inued 5 MG PO Daily October 25, 2021 12:00a m September 11, 2023 3:39p m Carvedilol 6.25 mg Tablet Discont inued 18.75 MG PO Twice daily 180 30 Novemb er 2023 1:00am Novem cyn 2023 3:33p m Furosemide 20 mg Tablet Discont inued 20 MG PO BID@0800,16 00 90 30 Novemb er 2023 1:00am Novem cyn 2023 1:34p m Multivitami n With Minerals capsule Active 1 CAP PO Daily 90 Novemb er 2023 1:00am Complies with drug therapy Atorvastati n 40 mg Tablet Active 40 MG PO Every evening 30 30 Novemb er 2023 1:00am Complies with drug therapy Dofetilide 250 mcg Capsule Discont inued 250 MCG PO Twice daily 60 30 Novemb er 2023 1:00am Febru wandy 2024 11:25 am Aspirin 81 mg Tablet,Lucina yed Release (Dr/Ec) Discont inued 81 MG PO Daily er 2023 1:00am Decem cyn 2023 12:36 pm Dofetilide 125 mcg Capsule Discont inued 125 MCG PO Twice daily 2024 1:00am November 11, 2024 3:11a m Acetaminoph en 500 mg Tablet Discont inued 1000 MG PO Every 6 hours as needed for Pain Scale 1 - 3 or fever 2024 1:00am November 11, 2024 4:46p m Pantoprazol e 40 mg Tablet,Lucina yed Release (Dr/Ec) Active 40 MG PO Daily before breakfast 2024 1:00am Complies with drug therapy Dofetilide 250 mcg capsule Active 250 MCG PO Q12H November 11, 2024 12:00a m Complies with drug therapy Magnesium Hydroxide (Milk Of Magnesia) 400 mg/5 mL suspension Discont inued 5 ML PO Daily as needed for constipatio n November 11, 2024 12:00a m Augus t 2024 3:07p m Menthol (Biofreeze (Menthol)) 4 % gel Discont inued 1 APPLIC TOPICA L Daily as needed for pain November 11, 2024 12:00a m Augus t 2024 3:03a m Acetaminoph en 500 mg Tablet Discont inued 500 MG PO Every 4 hours as needed for Pain Scale 1 - 3 or fever November 11, 2024 12:00a m Augus t 2024 2:56p m Prednisolon e Acetate 1 % drops,suspe nsion Active 1 DROPS EYE-LE FT Four times daily November 11, 2024 12:00a m Complies with drug therapy Guaifenesin 600 mg Tablet Extended Release 12hr Discont inued 1200 MG PO Twice daily 20 November 12, 2024 12:00a m Augus t 2024 3:06p m Prednisone 10 mg tablet Discont inued 10 MG PO Daily 39 November 12, 2024 12:00a m Augus t 2024 3:08p m take 60mg (6 tabs aday) for 3 days, then 40mg (4tabs) for 3 days, then 20mg (2tabs) for 3 days, then 10mg (1tab) for 3 days. Cefpodoxime 200 mg tablet Discont inued 200 MG PO Twice daily 6 November 12, 2024 12:00a m Augus 2024 3:05p m must administer with a meal/food Valacyclovi r 1 gram tablet Active 1000 MG PO Twice daily January 02, 2025 12:00a m Complies with drug therapy Ipratropium -Albuterol 0.5 mg-3 mg(2.5 mg base)/3 mL solution for nebulizatio n Active 3 ML INHALA TION Four times daily as needed for shortness of breath January 02, 2025 12:00a m Complies with drug therapy Rivaroxaban (Xarelto) 20 mg Tablet Active 20 MG PO Daily at bedtime January 02, 2025 12:00a m Further refills per Cardiology with Dr. Santana. Complies with drug therapy Ofloxacin 0.3 % drops Active 1 DROPS EYE-LE FT Four times daily January 05, 2025 12:00a m instill 1 DROP IN THE AFFECTED EYE(S) FOUR TIMES DAILY start 3 (THREE) days prior to surgery, then immediately following surgery EVERY HOUR WHILE AWAKE, then the next day FOUR TIMES DAILY until next appointment for further directions Complies with drug therapy Aspirin 81 mg Tablet,Lucina yed Release (/Ec) Active 81 MG PO Daily January 09, 2025 12:00a m Complies with drug therapy Spironolact one 25 mg Tablet Active 12.5 MG PO Daily 15 January 09, 2025 12:00a m Complies with drug therapy Valsartan 40 mg Tablet Discont inued 40 MG PO Daily January 09, 2025 12:00a m [facility] 2024 8:34p m Furosemide 40 mg Tablet Discont inued 40 MG PO Daily at 0800 January 09, 2025 12:00a m [facility] 2024 8:36p m Magnesium Oxide 400 mg (241.3 mg magnesium) Tablet Active 400 MG PO Daily January 09, 2025 12:00a m Complies with drug therapy Dapaglifloz in Propanediol 10 mg Tablet Active 10 MG PO Daily January 095 12:00a m Complies with drug therapy Prednisone 10 mg tablet Active 10 MG PO As Directed January 09, 2025 12:00a m Take 4 pills for 4 days Take 3 pills for 4 days Take 2 pills for 4 days Take 1 pill for 4 days then stop Complies with drug therapy Albuterol Sulfate 2.5 mg /3 mL (0.083 %) solution for nebulizatio n Discont inued 2.5 MG INHALA TION Four times daily September 08, 2023 12:00a m Febru [email or web address] 11:25 am Carvedilol 6.25 mg tablet Discont inued 6.25 MG PO Twice daily September 08, 2023 12:00a m October 12, 2023 2:00p m Fluticasone Propionate 50 mcg/actuati on spray,suspe nsion Discont inued 1 SPRAY INTRAN MERI Daily September 08, 2023 12:00a m 2024 11:25 am Pantoprazol e 40 mg tablet,lucina yed release (DR/EC) Discont inued 40 MG PO Daily September 08, 2023 12:00a m Octob er 2023 7:41p m Prednisone 5 mg tablet Discont inued 5 MG PO Daily September 08, 2023 12:00a m Octob er 2023 11:35 pm Tamsulosin 0.4 mg capsule Discont inued 0.4 MG PO Twice daily September 08, 2023 12:00a m Novem cyn 2023 9:49a m Finasteride 5 mg tablet Active 5 MG PO Daily September 08, 2023 12:00a m Complies with drug therapy Fluticasone Propion-Napoleon meterol (Wixela Inhub) 500-50 mcg/dose blister with device Discont inued 1 INH INHALA TION Twice daily September 15, 2023 12:00a m September 15, 2023 4:51p m Amiodarone 200 mg tablet Discont inued 200 MG PO Daily Novemb er 2023 1:00am Novem cyn 2023 3:33p m Carvedilol 6.25 mg tablet Discont inued 18.75 MG PO Twice daily Novemb er 2023 3:29pm Mayua ry 2024 3:41p m Carvedilol 12.5 mg tablet Discont inued 12.5 MG PO Twice daily October 12, 2023 12:00a m Octob er 2023 2:51p m Ipratropium [place] 0.02 % solution Discont inued 0.5 MG INHALA TION Four times daily October 12, 2023 12:00a m Septe mber 2023 8:53a m Latanoprost 0.005 % drops Active 1 DROPS EYE-LE FT Bedtime October 12, 2023 12:00a m Complies with drug therapy Oxygen unit Active 0 .Route October 23, 2023 12:00a m 2 liters at HS and napping [facility] Albuterol Sulfate (Ventolin Hfa) 90 mcg/actuati on HFA aerosol inhaler Discont inued 2 PUFF INHALA TION Q4H as needed for Shortness Of Breath Or Wheezing 6 90 October 23, 2023 3:23pm October 23, 2023 5:53p m Dispense 6 inhalers (2 per month) Fluticasone -Umeclidin- Vilanter (Trelegy Ellipta) 200-62.5-25 mcg blister with device Discont inued 1 INH INHALA TION Daily 180 October 23, 2023 12:00a m Augus t 2024 3:06p m Rinse after use Carvedilol 12.5 mg tablet Discont inued 12.5 MG PO Twice daily 60 30 Octobe r 2023 2:50pm Novem cyn 2023 1:50p m Baclofen 10 mg tablet Discont inued 10 MG PO Four times daily as needed for muscle spasm 28 7 Octobe r 2023 12:00a m Novem cyn 2023 3:54p m Metoprolol Succinate 25 mg tablet extended release 24 hr Active 25 MG PO Daily 2024 1:00am Complies with drug therapy Furosemide 20 mg tablet Discont inued 20 MG PO Daily as needed for edema 2024 1:00am Augus t 2024 11:58 am Right leg edema Magnesium Oxide 400 mg (241.3 mg magnesium) tablet Discont inued 400 MG PO Daily 2024 1:00am Augus t 2024 3:03a m Albuterol Sulfate 90 mcg/actuati on HFA aerosol inhaler Active 1 PUFF INHALA TION Every 6 hours as needed 2024 12:00a m Complies with drug therapy Potassium Chloride (Klor-Con 10) 10 mEq tablet extended release Active 10 MEQ PO Daily November 19, 2024 12:13p m Complies with drug therapy Immunizations Immunization Event Date Not Given Reason Dose Number Business Agent Lot Number Vaccine Information Statement (VIS) Detail Administration Location COVID-19 mRNA, Comirnaty ([employer]) July 22, 2020 COVID-19 mRNA, Comirnaty ([employer]) August 12, 2020 COVID-19 mRNA, Comirnaty ([employer]) March 26, 2021 Fluzone TIV High-Dose [id number] March 25, 2024 [id number] [facility] influenza, unspecified formulation March 30, 2016 influenza, unspecified formulation February 19, 2019 influenza, unspecified formulation February 03, 2020 influenza, unspecified formulation March 02, 2022 influenza, unspecified formulation March 01, 2023 Pneumococcal Conjugate Vaccine, 13 valent June 24, 2016 Pneumococcal Polysacc. Vaccine, 23 valent June 16, 2010 Pneumococcal Polysacc. Vaccine, 23 valent June 29, 2016 Tetanus, Diphtheria adult, 5 Lf pres free abs February 21, 2017 Procedures Procedure Date Performed Status XR chest 1V portable November 10, 2024 11:19pm com pleted Urine Culture November 10, 2024 completed Urine Culture November 11, 2024 cancelled XR chest 1V portable January 04, 2025 10:00pm c ompleted CT angio chest PE protocol January 05, 2025 12: 44am completed Relevant Diagnostic Tests and/or Laboratory Data Laboratory Results Test Collection Date/Time Result Date/Time Result Interpretation Reference Range Result Comment Performing Site Basophil s # (Auto) January 17, 2025 12:54pm January 17, 2025 12:54pm 0.0 10 3/uL 0.0-0.1 B-Type Natriure tic Peptide January 17, 2025 12:54pm January 17, 2025 12:54pm 2617.0 pg/mL Above upper panic limits <=900.0 RESULTS CALLED TO KRISTIN TAYLOR LPN Magnesiu m Level January 17, 2025 12:54pm January 17, 2025 12:54pm 1.9 mg/dL 1.8-2.4 Anion Gap January 17, 2025 12:54pm January 17, 2025 12:54pm 11.3 Basophil s (%) (Auto) January 17, 2025 12:54pm January 17, 2025 12:54pm 0.1 % Below low normal 0.2-2.0 BUN/Crea tinine Ratio January 17, 2025 12:54pm January 17, 2024 12:54pm 27.8 Eosinoph ils # (Auto) January 17, 2025 12:54pm January 17, 2025 12:54pm 0.1 10 3/uL 0.0-0.7 Blood Urea Nitrogen January 17, 2025 12:54pm January 17, 2025 12:54pm 32.0 mg/dL Above high normal 7.0-18.0 Eosinoph ils (%) (Auto) January 17, 2025 12:54pm January 17, 2025 12:54pm 0.3 % Below low normal 0.9-7.0 Calcium Level January 17, 2025 12:54pm January 17, 2025 12:54pm 8.5 mg/dL 8.5-10.1 Hematocr it January 17, 2025 12:54pm January 17, 2025 12:54pm 33.4 % Below low normal 42.0-54.0 Chloride Level January 17, 2025 12:54pm January 17, 2025 12:54pm 104 mmol/L 98-107 Hemoglob in January 17, 2025 12:54pm January 17, 2025 12:54pm 11.0 g/dL Below low normal 14.0-18.0 Carbon Dioxide Level January 17, 2025 12:54pm January 17, 2025 12:54pm 29.8 mmol/L 21.0-32.0 Immature Granuloc yte # (Auto) January 17, 2025 12:54pm January 17, 2025 12:54pm 0.29 10 3/uL Above high normal 0.00-0.03 Creatini ne January 17, 2025 12:54pm January 17, 2025 12:54pm 1.15 mg/dL 0.70-1.30 Immature Granuloc yte % (Auto) January 17, 2025 12:54pm January 17, 2025 12:54pm 1.6 % Above high normal 0.0-0.5 Estimate d GFR ( ) January 17, 2025 12:54pm January 17, 2025 12:54pm >60 >=60 mL/min/1.7 3m 2 Lymphocy susy # (Auto) January 17, 2025 12:54pm January 17, 2025 12:54pm 1.9 10 3/uL 1.2-3.8 Estimate d GFR (Non-Afr ican Tristanian January 17, 2025 12:54pm January 17, 2025 12:54pm >60 >=60 mL/min/1.7 3m 2 Lymphocy susy (%) (Auto) January 17, 2025 12:54pm January 17, 2025 12:54pm 10.5 % Below low normal 20.5-60.0 Glucose Level January 17, 2025 12:54pm January 17, 2025 12:54pm 76 mg/dL 74-106 Mean Corpuscu lar Hemoglob in January 17, 2025 12:54pm January 17, 2025 12:54pm 28.6 pg 25.9-34.0 Potassiu m Level January 17, 2025 12:54pm January 17, 2025 12:54pm 3.1 mmol/L Below low normal 3.5-5.1 Mean Corpuscu lar [facility] January 17, 2025 12:54pm January 17, 2025 12:54pm 32.9 g/dL 29.9-35.2 Sodium Level January 17, 2025 12:54pm January 17, 2025 12:54pm 142 mmol/L 136-145 Mean Corpuscu lar Volume January 17, 2025 12:54pm January 17, 2025 12:54pm 86.8 fL 80.0-94.0 Monocyte s # (Auto) January 17, 2025 12:54pm January 17, 2025 12:54pm 1.0 10 3/uL Above high normal 0.3-0.8 Monocyte s (%) (Auto) January 17, 2025 12:54pm January 17, 2025 12:54pm 5.5 % 1.7-12.0 Mean Platelet Volume January 17, 2025 12:54pm January 17, 2025 12:54pm 9.8 fL 9.5-13.5 Neutroph ils # (Auto) January 17, 2025 12:54pm January 17, 2025 12:54pm 14.6 10 3/uL Above high normal 1.4-6.5 Neutroph ils (%) (Auto) January 17, 2025 12:54pm January 17, 2025 12:54pm 82.0 % Above high normal 43.0-75.0 Platelet Count January 17, 2025 12:54pm January 17, 2025 12:54pm 331 10 3/uL 150-450 Red Blood Count January 17, 2025 12:54pm January 17, 2025 12:54pm 3.85 10 6/uL Below low normal 4.70-6.10 Red Cell Distribu tion Width January 17, 2025 12:54pm January 17, 2025 12:54pm 19.4 % Above high normal 11.0-15.0 Correcte d White Blood Count January 17, 2025 12:54pm January 17, 2025 12:54pm 17.9 10 3/uL Above high normal 4.0-11.0 Correcte d White Blood Count November 12, 2024 8:00am November 12, 2024 9:08am 18.4 10*3/uL Above high normal 4.1-10.5 [facility] [id number] [address] [place], [place] [id number] Correcte d White Blood Count January 07, 2025 4:50am January 07, 2025 5:27am 9.4 10*3/uL 4.1-10.5 [facility] [id number] [address] [facility] [address] Uncorrec junior WBC Count November 12, 2024 8:00am November 12, 2024 9:08am 18.4 10*3/uL Above high normal 4.1-10.5 [facility] [id number] [address] [facility] [address] Uncorrec junior WBC Count January 05, 2025 3:20am January 05, 2025 3:57am 8.6 10*3/uL 4.1-10.5 [facility] [id number] [address] [facility] [address] Red Blood Count November 12, 2024 8:00am November 12, 2024 9:08am 3.34 10*6/uL Below low normal 3.90-5.60 [facility] [id number] [address] [facility] [address] Red Blood Count January 07, 2025 4:50am January 07, 2025 5:27am 3.23 10*6/uL Below low normal 3.90-5.60 [facility] [id number] [address] [facility] [address] Hemoglob in November 12, 2024 8:00am November 12, 2024 9:08am 8.8 g/dL Below low normal 13.0-17.0 [facility] [id number] [address] [facility] [address] Hemoglob in January 07, 2025 4:50am January 07, 2025 5:27am 9.1 g/dL Below low normal 13.0-17.0 [facility] [id number] [address] [facility] [address] Hematocr it November 12, 2024 8:00am November 12, 2024 9:08am 27.0 % Below low normal 38.8-50.0 [facility] [id number] [address] [facility] [address] Hematocr it January 07, 2025 4:50am January 07, 2025 5:27am 26.8 % Below low normal 38.8-50.0 [facility] [id number] [address] [facility] [address] Mean Corpuscu lar Volume November 12, 2024 8:00am November 12, 2024 9:08am 80.9 fL Below low normal 83.5-101 [facility] [id number] [address] [facility] [address] Mean Corpuscu lar Volume January 07, 2025 4:50am January 07, 2025 5:27am 82.9 fL Below low normal 83.5-101 [facility] [id number] [address] [facility] [address] Mean Corpuscu lar Hemoglob in November 12, 2024 8:00am November 12, 2024 9:08am 26.5 pg Below low normal 27.5-35.2 [facility] [id number] [address] [facility] [address] Mean Corpuscu lar Hemoglob in January 07, 2025 4:50am January 07, 2025 5:27am 28.2 pg 27.5-35.2 [facility] [id number] [address] [facility] [address] Mean Corpuscu lar Hemoglob in [facility] November 12, 2024 8:00am November 12, 2024 9:08am 32.7 g/dL 32.5-35.6 [facility] [id number] [address] [facility] [address] Mean Corpuscu lar Hemoglob in [facility] January 07, 2025 4:50am January 07, 2025 5:27am 34.0 g/dL 32.5-35.6 [facility] [id number] [address] [place] [address] Red Cell Distribu tion Width November 12, 2024 8:00am November 12, 2024 9:08am 16.5 % Above high normal 12.0-14.8 [facility] [id number] [address] [place] [address] Red Cell Distribu tion Width January 07, 2025 4:50am January 07, 2025 5:27am 18.1 % Above high normal 12.0-14.8 [facility] [id number] [address] [place] [address] Platelet Count November 12, 2024 8:00am November 12, 2024 9:08am 273 10*3/uL 150-450 [facility] [id number] [address] [place] [address] Platelet Count January 07, 2025 4:50am January 07, 2025 5:27am 265 10*3/uL 150-450 [facility] [id number] [address] [place] [address] Mean Platelet Volume November 12, 2024 8:00am November 12, 2024 9:08am 7.9 fL 6.6-10.1 [facility] [id number] [address] [place] [address] Mean Platelet Volume January 07, 2025 4:50am January 07, 2025 5:27am 7.8 fL 6.6-10.1 [facility] [id number] [address] [facility] [address] Monocyte Distribu tion Width November 10, 2024 11:30pm November 11, 2024 12:08am 18.48 % 0.00-20.00 [facility] [id number] [address] [facility] [address] Monocyte Distribu tion Width January 04, 2025 10:10pm January 04, 2025 10:31pm 17.47 % 0.00-20.00 [facility] [id number] [address] [facility] [address] Neutroph ils (%) (Auto) November 12, 2024 8:00am November 12, 2024 9:08am 93.0 % . [facility] [id number] [address] [facility] [address] Neutroph ils (%) (Auto) January 05, 2025 3:20am January 05, 2025 3:57am 93.4 % . [facility] [id number] [address] [facility] [address] Lymphocy susy (%) (Auto) November 12, 2024 8:00am November 12, 2024 9:08am 4.1 % . [facility] [id number] [address] [facility] [address] Lymphocy susy (%) (Auto) January 05, 2025 3:20am January 05, 2025 3:57am 5.1 % . [facility] [id number] [address] [facility] [address] Monocyte s (%) (Auto) November 12, 2024 8:00am November 12, 2024 9:08am 2.8 % . [facility] [id number] [address] [facility] [address] Monocyte s (%) (Auto) January 05, 2025 3:20am January 05, 2025 3:57am 1.3 % . [facility] [id number] [address] [facility] [address] Eosinoph ils (%) (Auto) November 12, 2024 8:00am November 12, 2024 9:08am 0.0 % . [facility] [id number] [address] [facility] [address] Eosinoph ils (%) (Auto) January 05, 2025 3:20am January 05, 2025 3:57am 0.1 % . [facility] [id number] [address] [facility] [address] Basophil s (%) (Auto) November 12, 2024 8:00am November 12, 2024 9:08am 0.1 % . [facility] [id number] [address] [facility] [address] Basophil s (%) (Auto) January 05, 2025 3:20am January 05, 2025 3:57am 0.1 % . [facility] [id number] [address] [facility] [address] Nucleate d RBC Relative Count (auto) November 12, 2024 8:00am November 12, 2024 9:08am 0.0 /100{WBC} 0-0.5 [facility] [id number] [address] [facility] [address] Nucleate d RBC Relative Count (auto) January 05, 2025 3:20am January 05, 2025 3:57am 0.0 /100{WBC} 0-0.5 [facility] [id number] [address] [facility] [address] Neutroph ils # (Auto) November 12, 2024 8:00am November 12, 2024 9:08am 17.1 10*3/uL Above high normal 1.8-7.7 [facility] [id number] [address] [facility] [address] Neutroph ils # (Auto) January 05, 2025 3:20am January 05, 2025 3:57am 8.1 10*3/uL Above high normal 1.8-7.7 [facility] [id number] [address] [facility] [address] Lymphocy susy # (Auto) November 12, 2024 8:00am November 12, 2024 9:08am 0.7 10*3/uL Below low normal 1.00-4.8 [facility] [id number] [address] [facility] [address] Lymphocy susy # (Auto) January 05, 2025 3:20am January 05, 2025 3:57am 0.4 10*3/uL Below low normal 1.00-4.8 [facility] [id number] [address] [place] [address] Monocyte s # (Auto) November 12, 2024 8:00am November 12, 2024 9:08am 0.5 10*3/uL 0.0-0.8 [facility] [id number] [address] [place] [address] Monocyte s # (Auto) January 05, 2025 3:20am January 05, 2025 3:57am 0.1 10*3/uL 0.0-0.8 [facility] [id number] [address] [place] [address] Eosinoph ils # (Auto) November 12, 2024 8:00am November 12, 2024 9:08am 0.0 10*3/uL 0.0-0.45 [facility] [id number] [address] [place] [address] Eosinoph ils # (Auto) January 05, 2025 3:20am January 05, 2025 3:57am 0.0 10*3/uL 0.0-0.45 [facility] [id number] [address] [place] [address] Basophil s # (Auto) November 12, 2024 8:00am November 12, 2024 9:08am 0.0 10*3/uL 0.0-0.2 [facility] [id number] [address] [place] [address] Basophil s # (Auto) January 05, 2025 3:20am January 05, 2025 3:57am 0.0 10*3/uL 0.0-0.2 [facility] [id number] [address] [place] [address] Prothrom bin Time January 04, 2025 10:10pm January 04, 2025 11:00pm 18.9 s Above high normal 9.0-12.9 A hematocrit value greater than 55% may lead to inaccurate results in coagulation testing. Patients having hematocrit values >55% require a special collection tube for coagulation studies. Please contact the laboratory at [phone] for redraw instruction s. [facility] [id number] [address] [place] [address] Prothrom b Time Internat ional Ratio January 04, 2025 10:10pm January 04, 2025 11:00pm 1.7 INR Therapeutic Range A) Pre- and Peroperativ e OAT started two weeks before surgery. NOT HIP SURGERY: 1.5 - 2.5 HIP SURGERY: 2 - 3B) Primary and secondary prevention of venous THROMBOSIS: 2 - 3C) Active venous thrombosis, pulmonary embolismand prevention of recurrent venous thrombosis: 2 - 3D) Prevention of arterial thromboembo lismincludi ng patients with mechanical heart valves: 3 - 4.5 [facility] [id number] [address] [place] [address] Activate d Partial Thrombop last Time January 06, 2025 7:55am January 06, 2025 8:46am 63.1 s Above high normal 25.1-36.5 A hematocrit value greater than 55% may lead to inaccurate results in coagulation testing. Patients having hematocrit values >55% require a special collection tube for coagulation studies. Please contact the laboratory at [phone] for redraw instruction s. [facility] [id number] [address] [facility] [address] Heparin Anti-Xa Act, Unfracti onated January 04, 2025 10:10pm January 05, 2025 1:36am 1.30 [IU]/mL Above upper panic limits 0.30-0.70 Critical valueresult calledat 0136 on 01/05/25 Use the aPTT protocol when triglycerid es are > 800 mg/dL,total bilirubin is > 20 mg/dL and/or patient has received aDOAC, Fondaparinu x or LMWH within 72 hours AND baselineant i-Xa level is > 0.7 units/mL [facility] [id number] [address] [facility] [address] Urine Color November 11, 2024 3:39pm November 11, 2024 4:03pm Light-yel low Yellow [facility] [id number] [address] [facility] [address] Urine Appearan ce November 11, 2024 3:39pm November 11, 2024 4:03pm Clear Clear [facility] [id number] [address] [place] [address] Urine Specific [place] November 11, 2024 3:39pm November 11, 2024 4:03pm 1.012 1.001-1.03 0 [facility] [id number] [address] [facility] [address] Urine pH November 11, 2024 3:39pm November 11, 2024 4:03pm 5.5 5.0-9.0 [facility] [id number] [address] [facility] [address] Urine Leukocyt e Esterase November 11, 2024 3:39pm November 11, 2024 4:03pm 2+ Above high normal Negative [facility] [id number] [address] [facility] [address] Urine Nitrite November 11, 2024 3:39pm November 11, 2024 4:03pm Positive Above high normal Negative [facility] [id number] [address] [facility] [address] Urine Protein November 11, 2024 3:39pm November 11, 2024 4:03pm Negative mg/dL Negative [facility] [id number] [address] [facility] [address] Urine Glucose (UA) November 11, 2024 3:39pm November 11, 2024 4:03pm 50 mg/dL Above high normal Normal [facility] [id number] [address] [facility] [address] Urine Ketones November 11, 2024 3:39pm November 11, 2024 4:03pm Negative Negative [facility] [id number] [address] [facility] [address] Urine Urobilin ogen November 11, 2024 3:39pm November 11, 2024 4:03pm Normal mg/dL Normal [facility] [id number] [address] [place] [address] Urine Bilirubi n November 11, 2024 3:39pm November 11, 2024 4:03pm Negative Negative [facility] [id number] [address] [facility] [address] Urine Occult Blood November 11, 2024 3:39pm November 11, 2024 4:03pm Trace Above high normal Negative [facility] [id number] [address] [facility] [address] Urine RBC November 11, 2024 3:39pm November 11, 2024 4:16pm 1-2 [HPF] 0-4 [facility] [id number] [address] [facility] [address] Urine WBC November 11, 2024 3:39pm November 11, 2024 4:16pm 20-49 [HPF] Above high normal 0-4 [facility] [id number] [address] [facility] [address] Urine WBC Clumps November 10, 2024 11:15pm November 11, 2024 12:46am Many [LPF] Above high normal None Seen [facility] [id number] [address] [facility] [address] Urine Squamous Epitheli al Cells November 11, 2024 3:39pm November 11, 2024 4:16pm N/A [facility] [id number] [address] [facility] [address] Urine Bacteria November 11, 2024 3:39pm November 11, 2024 4:16pm Rare [HPF] None Seen [facility] [id number] [address] [facility] [address] Urine Hyaline Casts November 11, 2024 3:39pm November 11, 2024 4:16pm 9-19 [LPF] Above high normal 0-8 [facility] [id number] [address] [facility] [address] Urine Mucus November 11, 2024 3:39pm November 11, 2024 4:16pm Rare [LPF] [facility] [id number] [address] [facility] [address] Glucose Level November 12, 2024 8:00am November 12, 2024 9:29am 144 mg/dL Above high normal 70-100 ADA recommended reference rangeRandom Glucose Reference Range is dependent on time and content of last meal. Glucose of more than 200 mg/dL in a nonstressed , ambulatory subject supports the diagnosis of Diabetes Mellitus. [facility] [id number] [address] [facility] [address] Glucose Level January 09, 2025 4:10am January 09, 2025 5:09am 132 mg/dL Above high normal 70-100 ADA recommended reference rangeRandom Glucose Reference Range is dependent on time and content of last meal. Glucose of more than 200 mg/dL in a nonstressed , ambulatory subject supports the diagnosis of Diabetes Mellitus. [facility] [id number] [address] [facility] [address] Blood Urea Nitrogen November 12, 2024 8:00am November 12, 2024 9:29am 22 mg/dL 12-06 [facility] [id number] [address] [facility] [address] Blood Urea Nitrogen January 09, 2025 4:10am January 09, 2025 5:09am 45 mg/dL Above high normal 12-06 [facility] [id number] [address] [facility] [address] Creatini ne November 12, 2024 8:00am November 12, 2024 9:29am 0.92 mg/dL 0.70-1.30 [facility] [id number] [address] [facility] [address] Creatini ne January 09, 2025 4:10am January 09, 2025 5:09am 1.15 mg/dL 0.70-1.30 [facility] [id number] [address] [facility] [address] Estimate d GFR (CKD-EPI ) November 12, 2024 8:00am November 12, 2024 9:29am > 60.0 mL/Min [facility] [id number] [address] [facility] [address] Estimate d GFR (CKD-EPI ) January 09, 2025 4:10am January 09, 2025 5:09am > 60.0 mL/Min [facility] [id number] [address] [facility] [address] Sodium Level November 12, 2024 8:00am November 12, 2024 9:29am 135 mmol/L Below low normal 136-145 [facility] [id number] [address] [facility] [address] Sodium Level January 09, 2025 4:10am January 09, 2025 5:09am 137 mmol/L 136-145 [facility] [id number] [address] [place] [id number] Potassiu m Level November 12, 2024 8:00am November 12, 2024 9:29am 4.1 mmol/L 3.5-5.1 [facility] [id number] [address] [place] [id number] Potassiu m Level January 09, 2025 4:10am January 09, 2025 5:09am 4.9 mmol/L 3.5-5.1 [facility] [id number] [address] [facility] [address] Chloride Level November 12, 2024 8:00am November 12, 2024 9:29am 100 mmol/L 98-107 [facility] [id number] [address] [facility] [address] Chloride Level January 09, 2025 4:10am January 09, 2025 5:09am 104 mmol/L 98-107 [facility] [id number] [address] [facility] [address] Carbon Dioxide Level November 12, 2024 8:00am November 12, 2024 9:29am 28.1 mmol/L 21.0-31.0 [facility] [id number] [address] [facility] [address] Carbon Dioxide Level January 09, 2025 4:10am January 09, 2025 5:09am 26.9 mmol/L 21.0-31.0 [facility] [id number] [address] [facility] [address] Anion Gap November 12, 2024 8:00am November 12, 2024 9:29am 11.0 mEq/L 6.0-15.0 [facility] [id number] [address] [facility] [address] Anion Gap January 09, 2025 4:10am January 09, 2025 5:09am 11.0 mEq/L 6.0-15.0 [facility] [id number] [address] [facility] [address] Calcium Level November 12, 2024 8:00am November 12, 2024 9:29am 9.1 mg/dL 8.6-10.3 [facility] [id number] [address] [facility] [address] Calcium Level January 09, 2025 4:10am January 09, 2025 5:09am 8.8 mg/dL 8.6-10.3 [facility] [id number] [address] [facility] [address] Magnesiu m Level November 10, 2024 11:30pm November 11, 2024 12:21am 1.6 mg/dL Below low normal 1.9-2.7 [facility] [id number] [address] [facility] [address] Magnesiu m Level January 09, 2025 4:10am January 09, 2025 5:09am 2.3 mg/dL 1.9-2.7 [facility] [id number] [address] [facility] [address] Total Protein November 10, 2024 11:30pm November 11, 2024 12:21am 7.5 g/dL 6.4-8.9 [facility] [id number] [address] [facility] [address] Total Protein January 04, 2025 10:10pm January 04, 2025 10:51pm 6.6 g/dL 6.4-8.9 [facility] [id number] [address] [facility] [address] Albumin November 10, 2024 11:30pm November 11, 2024 12:21am 3.9 g/dL 3.5-5.7 [facility] [id number] [address] [facility] [address] Albumin January 04, 2025 10:10pm January 04, 2025 10:51pm 3.8 g/dL 3.5-5.7 [facility] [id number] [address] [facility] [address] Globulin November 10, 2024 11:30pm November 11, 2024 12:21am 3.6 g/dL [facility] [id number] [address] [facility] [address] Globulin January 04, 2025 10:10pm January 04, 2025 10:51pm 2.8 g/dL [facility] [id number] [address] [facility] [address] Albumin/ Globulin Ratio November 10, 2024 11:30pm November 11, 2024 12:21am 1.1 [facility] [id number] [address] [facility] [address] Albumin/ Globulin Ratio January 04, 2025 10:10pm January 04, 2025 10:51pm 1.4 [facility] [id number] [address] [place] [address] Total Bilirubi n November 10, 2024 11:30pm November 11, 2024 12:21am 0.6 mg/dL 0.3-1.0 [facility] [id number] [address] [place] [address] Total Bilirubi n January 04, 2025 10:10pm January 04, 2025 10:51pm 0.4 mg/dL 0.3-1.0 [facility] [id number] [address] [place] [address]218 Aspartat e Amino Transf (AST/SGO T) November 10, 2024 11:30pm November 11, 2024 12:21am 19 U/L 39 [facility] [id number] [address] [place] [address] Aspartat e Amino Transf (AST/SGO T) January 04, 2025 10:10pm January 04, 2025 10:51pm 21 U/L 39 [facility] [id number] [address] [place] [address] 14098 Alanine Aminotra nsferase (ALT/SGP T) November 10, 2024 11:30pm November 11, 2024 12:21am 10 U/L [facility] [facility] [id number] [address] [place] [address] 35889 Alanine Aminotra nsferase (ALT/SGP T) January 04, 2025 10:10pm January 04, 2025 10:51pm 9 U/L [facility] [id number] [address] [place] [address] 76551 Alkaline Phosphat ase November 10, 2024 11:30pm November 11, 2024 12:21am 149 U/L Above high normal 34-104 [facility] [id number] [address] [place] [address]97[address] Alkaline Phosphat ase January 04, 2025 10:10pm January 04, 2025 10:51pm 140 U/L Above high normal 34-104 [facility] [id number] [address] [place] [address] 64754 Total Creatine Kinase November 10, 2024 11:30pm November 11, 2024 12:24am 27 U/L Below low normal 223 [facility] [id number] [address] [facility] [address] Total Creatine Kinase January 04, 2025 10:10pm January 04, 2025 10:51pm 30 U/L 30-223 [facility] [id number] [address] [place] [address] 84592 Troponin I High Sensitiv ity November 10, 2024 11:30pm November 11, 2024 12:32am 4 ng/L 0-20 The Troponin units of report have been changed to meet the Chest Pain Accreditati on requirement , element EC5.M1l2. Troponin units are changed from pg/ml to ng/L. Also, the decimal is removed and results are in whole numbers. [facility] [id number] [address] [facility] [address] Troponin I High Sensitiv ity January 05, 2025 11:12am January 05, 2025 12:33pm 398 ng/L Above upper panic limits 0-20 Critical Result : Called to and read back by: TRAVON GUZMAN at: 01/05/2025 12:36:23 by:DIANEThe Troponin units of report have been changed to meet the Chest Pain Accreditati on requirement , element EC5.M1l2. Troponin units are changed from pg/ml to ng/L. Also, the decimal is removed and results are in whole numbers. [facility] [id number] [address] [place] [address]45[address] B-Type Natriure tic Peptide November 10, 2024 11:30pm November 11, 2024 12:27am 187.0 pg/mL Above high normal 5-100 [facility] [id number] [address] [place] [address] 72874 B-Type Natriure tic Peptide January 04, 2025 10:10pm January 04, 2025 10:57pm 268.0 pg/mL Above high normal 5-100 [facility] [id number] [address] [place] [address] 24289 Pharmacy Creatini ne Clearanc e (Chem November 12, 2024 8:00am November 12, 2024 9:29am 65.31 [facility] [id number] [address] [place] [address] 78285 Pharmacy Creatini ne Clearanc e (Chem January 09, 2025 4:10am January 09, 2025 5:09am 51.32 [facility] [id number] [address] [place], [place] [id number] Arterial Blood pH January 04, 2025 10:19pm January 04, 2025 10:23pm 7.35 7.35-7.45 Point of Care testing Arterial Blood Partial Pressure CO2 January 04, 2025 10:19pm January 04, 2025 10:23pm 42.2 mm[Hg] 35.0-45.0 Point of Care testing Arterial Blood Partial Pressure O2 January 04, 2025 10:19pm January 04, 2025 10:23pm 91.5 mm[Hg] 80.0-100.0 Point of Care testing Arterial Blood HCO3 January 04, 2025 10:19pm January 04, 2025 10:23pm 23.0 mmol/L 23.0-29.0 Point of Care testing Arterial Blood Base Excess January 04, 2025 10:19pm January 04, 2025 10:23pm -2.4 mmol/L -3.0-3.0 Point of Care testing Arterial Blood Oxygen Saturati on January 04, 2025 10:19pm January 04, 2025 10:23pm 96.7 % 95.0-100.0 Point of Care testing Arterial Blood Oxygen Content January 04, 2025 10:19pm January 04, 2025 10:23pm 6.8 mmol/L 6.6-9.7 Point of Care testing Arterial Blood Total CO2 January 04, 2025 10:19pm January 04, 2025 10:23pm 24.3 mmol/L 23.0-27.0 Point of Care testing FiO2 January 04, 2025 10:19pm January 04, 2025 10:23pm 32 % Point of Care testing Blood Gas Sample Site January 04, 2025 10:19pm January 04, 2025 10:23pm Right radial Point of Care testing Blood Gas Critical Value January 04, 2025 10:19pm January 04, 2025 10:23pm See comment Critical Value called on: 01/04/2025 at 22:22 Point of Care testing Microbiology Results Procedure Source Result Collection Date/Time Result Date/Time Result Comment Performing Site Urine Culture Urine, Clean-Voided Midstream bacilli - 2 Days November 10, 2024 11:15pm November 13, 2024 10:00am [facility] [id number] [address] [place] [address] 81604 Diagnostic Imaging Reports Author Prudencio Iyer [facility] Authored November 11, 2024 8:10 am Report Dictated Date/Time Dictated By Status Radiology Report November 11, 2024 8:10am Prudencio Iyer MD completed [facility] [place] [id number] XRay Report Signed Patient: Carson Mcadams MR#: [id number] : 1955 Acct:[id number] Age/Sex: 69 / M ADM Date: 5 Loc: Room: [address] [place] [address] Type: DIS IN Attending Dr: Hoang Conner DO Copies to: DO Hoang Jimenez DO~ Ordering Provider: Hasmukh Vides DO [...] Iyer M.D. 11/11/2024 8:12 AM Dictation Location: [facility]- Transcribed By: [facility] 11/11/24811 Dictated By: Prudencio Iyer MD 11/11/24809 Signed By: <Electronically signed by Prudencio Iyer MD in [place]> 11/11/2412 Author Juliocesar Varela [facility] Authored January 05, 2025 10 :44am Report Dictated Date/Time Dictated By Status Radiology Report January 05, 2025 10:44am Juliocesar liu II MD completed [facility] [place] [id number] XRay Report Signed Patient: Carson Mcadams MR#: [id number] : 1955 Acct:[id number] Age/Sex: 69 / M ADM Date: 5 Loc: Room: [address] [place] [address] Type: ADM IN Attending Dr: Altaf Jones [...] Varela M.D. 01/05/2025 10:46 AM Dictation Location: [place] [address] Transcribed By: [facility] 01/05/25 1046 Dictated By: Juliocsear Varela II, MD 01/05/25 1044 Signed By: <Electronically signed by Juliocesar Varela II, MD in [place]> 01/05/25 1046 Author Juliocesar Varela [facility] Authored January 05, 2025 11 :38am Report Dictated Date/Time Dictated By Status Radiology Report January 05, 2025 11:38am Juliocesar Varela II MD completed [facility] [address] [address] [address] Scan Report Signed Patient: Carson Mcadams MR#: [id number] : 1955 Acct:[id number] Age/Sex: 69 / M ADM Date: 5 Loc: 4 Room: [address] [place] [address] Type: ADM IN Attending Dr: Altaf Jones [...] present in the thoracic aorta. There is no evidence of pulmonary embolism. Mediastinum and Clara: Densely calcified mediastinal and hilar lymph nodes [...] dependently within the gallbladder lumen. There is right-sided renal cortical scarring. Tiny 1 to 2 mm nonobstructing stones are noted in the right renal collecting system. Bones: There is a remote compression fracture of the T7 vertebral body. Degenerative changes are noted in the thoracic spine. CT/CT angio chest PE protocol IMPRESSION: No evidence of pulmonary embolism. Findings consistent with a history of sarcoidosis similar to the prior exam with subtle interval worsening of airspace opacities in the lung bases. Additional chronic findings are noted as above. Impression dictated by: Juliocesar Varela M.D. 01/05/2025 11:46 AM Dictation Location: [place] [address] Transcribed By: [facility] 01/05/25 1146 Dictated By: Juliocesar Varela II, MD 01/05/25 1138 Signed By: <Electronically signed by Juliocesar Varela II, MD in [place]> 01/05/25 1146 Vital Signs Vital Reading Result Reference Range Collection Date/Time Height 72 [in_i] November 11, 2024 2:36pm Weight 61.80 kg November 12, 2024 6:00am Body Temperature 97.3 [degF] 97.6-99.0 November 12, 2 025 7:54am Heart Rate 106 /min 60-100 November 12, 2024 4:00pm Respiratory rate 18 /min -November 12, 2 025 4:00pm Oxygen saturation by Pulse oximetry 100 % 95-100 November 12, 2024 4:00p m BP Systolic 121 mm[Hg] 100-140 November 12, 2024 4:00pm BP Diastolic 75 mm[Hg] 60-100 November 12, 2024 4:00pm Inhaled oxygen flow rate 2 L/min Nov 4:00pm Height 72 [in_i] November 19, 2024 8:58am Weight 61.34 kg November 19, 2024 8:58am Heart Rate 98 /min 60-100 November 19, 2024 8:58am Respiratory rate 14 /min -November 19, 2 025 8:58am Oxygen saturation by Pulse oximetry 99 % 95-100 November 19, 2024 8:58a m BP Systolic 122 mm[Hg] 100-140 November 19, 2024 8:58am BP Diastolic 70 mm[Hg] 60-100 November 19, 2024 8:58am BMI (Body Mass Index) 18.3 kg/m2 November 192024 8:58am Height 72 [in_i] January 06 2:20pm Weight 63.20 kg January 09 5:58am Body Temperature 97.6 [degF] 97.6-99.0 December 4:00pm Heart Rate 98 /min 60-100 January 09 4:00pm Respiratory rate 18 /min -December 4:00pm Oxygen saturation by Pulse oximetry 97 % 95-100 January 09, 2025 4: 00pm BP Systolic 108 mm[Hg] 100-140 January 09 4:00pm BP Diastolic 62 mm[Hg] 60-100 January 09 4:00pm Inhaled oxygen concentration 30 % January 05, 2025 11:18am Inhaled oxygen flow rate 3 L/min Dec 4:00pm Height 72 [in_i] January 21, 2025 1:15pm Weight 61.68 kg January 21, 2025 1:15pm Heart Rate 92 /min 60-100 January 21, 2025 1:15pm Respiratory rate 20 /min -January 212024 1:15pm Oxygen saturation by Pulse oximetry 97 % 95-100 January 21, 2025 1:15pm BP Systolic 119 mm[Hg] 100-140 January 21, 2025 1:15pm BP Diastolic 80 mm[Hg] 60-100 January 21, 2025 1:15pm BMI (Body Mass Index) 18.4 kg/m2 2024 1:15pm Advance Directives Advance Directive Response Recorded Date/ Time Advance Directives No April 9:38pm Insurance Providers Guarantor Jennifer Fischer Address [address] [place] [address] Contact Info. Home Phone: Payer Policy Id Subscriber's Name Subscriber Id Effectiv e Date Expiration Date Medicare [id number] Jennifer Fischer [id number] [employer] [facility] [id number] Jennifer Fischer [id number] Encounters Encounter Location(s) Arrival/Admit Date Discharge /Depart Date Provider(s) Discharged Inpatient -[facility] [place] [facility] November 11, 2024 3:15am November 12, 2024 6:00pm Hoang Conner DO Non-patient / Non-visit -[facility] November 12, 2024 8:50am Juliette Davis CMA Departed Physician/Provi tiffany Office Visit -[facility] November 19, 2024 11:39am November 19, 2024 12:17pm Adam Wylie DO Departed Referred -Pre-Surgical Testing January 02, 2025 3:23pm January 02, 2025 3:24pm Josue Beavers MD Discharged Inpatient -[facility] [place] [facility] January 05, 2025 1:53am January 09, 2025 5:15pm Jostin Larose DO Non-patient / Non-visit -[facility] January 10, 2025 7:40am Juliette Davis CMA Non-patient / Non-visit -[facility] January 17, 2025 12:54pm Concepción Godoy APRN Departed Physician/Provi tiffany Office Visit -[facility] Pulmonary January 21, 2025 1:09pm January 21, 2025 1:36pm Nick Muniz MD Recent Diagnosis Onset Date Admit Date Bullous emphysema Unknown November 11 3:15am Chronic respiratory failure with hypoxia Unknown November 11, 2024 3:15am Pulmonary sarcoidosis Unknown November 11, 2024 3:15am Acute exacerbation of chroni c obstructive pulmonary disease (COPD) Unknown November 11, 2024 3:15am Acute UTI Unknown November 11, 2024 3:15am Arrhythmia Unknown November 11, 2024 3:15am Breath shortness Unknown November 11, 2024 3:15am Corticosteroid dependence Unknown October 152024 3:15am 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 Unknown 2024 3:15am Anemia Unknown November 19, 2024 1 1:39am Atrial fibrillation Unknown November 19 11:39am Chronic HFrEF (heart failure with reduced ejection fraction) Unknown November 19, 2024 11:39am Chronic respiratory failure with hypoxia Unknown November 19, 2024 11:39am Nonischemic cardiomyopathy Unknown November 19, 2024 11:39am Sarcoidosis of lung Unknown November 19 11:39am Acute exacerbation of chroni c obstructive pulmonary disease (COPD) Unknown November 19, 2024 11:39am Acute cystitis Unknown November 19, 2024 1 1:39am Takotsubo cardiomyopathy 2024January 05, 2025 1:53am Acute on chronic hypoxic respiratory failure Unk nown January 05, 2025 1:53am History of sarcoidosis Unknown January 052024 1:53am Non-ST elevation MS (NSTEMI) Unknown Dec us2024 1:53am Bronchiectasis, uncomplicated Unknown Se ptember 2024 1:09pm Bullous emphysema Unknown January 21, 2025 1:09pm Cardiac sarcoidosis Unknown January 1:09pm Chronic respiratory failure with hypoxia Unknown January 21, 2025 1:09pm History of aspergilloma Unknown Septemb2024 1:09pm Pulmonary sarcoidosis Unknown January 21, 2025 1:09pm Functional Status Observation Response Date Recorded Dressing Patient at Baseline November 12 6:53pm Eating Patient at Baseline November 12 6:53pm Bathing Patient at Baseline November 12 6:53pm Disability Status Patient at Baseline November 12, 2024 6:53pm Dressing Patient is Progressing Toward Ba seline January 09, 2025 4:09pm Eating Patient is Progressing Toward Ba seline January 09, 2025 4:09pm Bathing Patient is Progressing Toward Ba seline January 09, 2025 4:09pm Disability Status Patient is Progressing Toward Baseline January 09, 2025 4:09pm Mental Status Observation Response Date Recorded Cognitive Status Patient at Baseline November 12, 025 6:53pm Cognitive Status Patient is Progressing Toward B aseline January 09, 2025 4:09pm Cognitive/Mental Status Assessments Assessments Diagnosis Onset Date Resolution Status Admit Date [...] November 11, 2024 3:15am 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 deleted November 11, 2024 3:15am Anemia acute November [...] Acute cystitis noneactive November 19, 2024 11:39am Takotsubo cardiomyopathy 2024 acute January 05, 2025 1:53am Acute on chronic hypoxic respiratory failure inactive January 05, 2025 1:53am History of sarcoidosis inactive Au elva 2024 1:53am Non-ST elevation MS (NSTEMI) inactiv e January 05, 2025 1:53am Bronchiectasis, uncomplicated acute January 21, 2025 1:09pm Bullous emphysema acute Septemb er 2024 1:09pm Cardiac sarcoidosis acute Septe mber 2024 1:09pm Chronic respiratory failure with hypoxia acute January 21 025 1:09pm History of aspergilloma acute S eptember 2024 1:09pm Pulmonary sarcoidosis acute Sep tember 2024 1:09pm Plan of Treatment Author Nick Muniz [facility] Authored January 21, 2025 1:32pm Patient is stable on present therapy. Will make no changes to present therapy as presently prescribed. Patient states no refills are required at this time. Patient will call when refills are required. All questions were answered. The patient was advised to call us if there are any new respiratory issues or concerns. Author Adam Wylie [facility] Authored November 19, 2024 12:35 pm This patient is rate control led. I instructed them to continue anticoagulation to prevent thromboembolic events. I instructed them to monitor their BP, HR and daily weights. I also instructed them to monitor for bleeding complications, including epistaxis, hematuria, melena and hematochezia. Cardioverted and prescribed Amiodarone - 02/2024 During most recent admission, due to recurrent AF, Amiodarone d/c'd Dofetilide initiated w/ cardioversion - 03/2024 Dofetilide dose reduced due to QT prolongation - 06/2024 Continue Xarelto and Dofetilide without interruption Healthy, low fat diet and low intensity exercise. declined ICD placement for mortality benefits. Denies receiving any shocks Cardiology planning stress testing in near future I have instructed this patient on a low salt diet, exercise and daily weights. I have instructed them to notify the office for any on any unexpected weight gain > 3lbs and /or increased dyspnea on exertion, difficulty breathing during sleep, worsening lower extremity swelling, chest pain or lightheadedness. I have reviewed the GDMT with beta blockers, IVANA/ARB or ARNI, MRA and a SGLT-2i. Echo: LVEF 45-50%, normal RV size/function, mild aortic root dilatation 4.0 cm - 02/2024 d/c Coreg and initiate Metoprolol succ Restart Entresto Hydrate and mucolytics to clear secretions. Continue maintenance therapy w/ LABA/ICS/LAMA Continue Duoneb HHN as needed, presently using at HS Continue supplemental oxygen No ER/hosp visits for EA Continue supplemental oxygen No s/s GIB AC due to paroxysmal AFib Recheck CBC, Ferritin, FA, B12 Continue supplemental oxygen at 2L/min Steroid dependent and oxygen dependent. Continue Trelegy w/o interruption. f/u Pulmonary Continue tapering dose of Prednisone. Finish antibiotics. Continue Trelegy, albuterol HHN without interruption Finish antibiotics as prescribed. Continue to push fluids and I/O cath daily. Notify office w/ fever or suprapubic pain. Future Tests Future scheduled test information is unavailable Pending Tests Test Name Ordered Date Scheduled Date Comprehensive Metabolic Panel November 19, 2024 12: 45pm Future Visits Future appointment information is unavailable Referrals to Other Providers Reason for Referral Referral Start Date Provider Provider Contact Information Provider Address Follow-up with your Primary Care Provider, call office to reschedule if needed. Adam Wylie , DO Work Phone: [address] [facility] [address] You have been scheduled for a follow up appointment for the following date and time, please call to reschedule if needed. Adam Wylie , DO Work Phone: [address] [facility] [address] Concepción Godoy APRN Work Phone: [address] [place] [phone] Future Procedures Procedure Name Ordered Date Scheduled Date Initiate Home Health November 12, 2024 1:27pm 1 Day s DME Home Medical Equipment November 12, 2024 1:23pm 1 Days Admit Status Order November 11, 2024 3:15am October 152024 3:17am Discharge Order November 12, 2024 12:39pm November 12, 2024 12:39pm Initiate Home Health January 09, 2025 1:26pm Admit Status Order January 05, 2025 1:53am Augu st 2024 1:53am Discharge Order January 09, 2025 11:58am January 09, 2025 11:58am Vitamin B12 November 19, 2024 12:45pm Complete Blood Count Auto Diff November 19, 2024 12 :45pm Iron and TIBC Profile November 19, 2024 12:45pm Ferritin November 19, 2024 12:45pm Folate November 19, 2024 12:45pm Thyroid Stimulating Hormone November 19, 2024 12:45 pm Future Medications Future medication information is unavailable Patient Instructions Instruction Admit Date Know your Meds November 11, 2024 3:15 am Know your Meds January 05, 2025 1: 53am Goals Acute Goals Author Authored Date Maintain/increase activity levels * Understands factors that may lead to activity intolerance * Helps perform self care activities * Maintains maximum range of motion * Increase/regain muscle mass and strength * Maintains VS WNL during activity * Maintain intact skin integrity Updated: 06/27/2022 [facility] November 12, 2024 6:55pm Exhibit optimal tissue perfu filippo * Exhibits adequate oxygenation and ventilation * Exhibits adequate cardiac output * Regains stable cardiac rhythm * Maintains optimal activity level * Maintains balanced intake and output [facility] November 12, 2024 6:55pm Fall Prevention 2022 [facility] November 12, 2024 6:55pm Exhibit optimal tissue perfu filippo * Exhibits adequate oxygenation and ventilation * Exhibits adequate cardiac output * Regains stable cardiac rhythm * Maintains optimal activity level * Maintains balanced intake and output [facility] January 09, 2025 5:24pm Skin integrity intact [facility] January 09, 2025 5:24pm Maintain/increase activity levels * Understands factors that may lead to activity intolerance * Helps perform self care activities * Maintains maximum range of motion * Increase/regain muscle mass and strength * Maintains VS WNL during activity * Maintain intact skin integrity Updated: 06/27/2022 [facility] January 09, 2025 5:24pm Fall Prevention 2022 [facility] January 09, 2025 5:24pm Preferences Type Detail Treatment Intervention Code Status: Full Code Treatment Intervention Code Status: Full Code
--- OUTSIDE RECORDS SUMMARY | 2025-01-28 09:30 | XMS_ITS | Encounter Summary ---
Author Organization [facility] Address [address] [place] [address] Phone Care Team Providers Care Field Administrative Assistant Name Role Phone Adam Wylie DO Primary Care Provider Juliette Perla RN Unavailable Unavailable Reason for Referral * Imaging (Routine) - Authorized Specialty Diagnoses / Procedures Referred By Contac t Referred To Contact Radiology Diagnoses Cardiac sarcoidosis Procedures MR cardiac morphology and function w and wo IV contrast Concepción Godoy APRN-CNP [address] [address], [address] [address] Phone: tel: fax: Referral ID Status Reason Start Date Expiration Date Visits Requested Visits Authorized [id number] Authorized Perform Procedure 01/16/2025 02/15/2026 1 1 Reason for Visit * Imaging (Routine) - Authorized Specialty Diagnoses / Procedures Referred By Contac t Referred To Contact Radiology Diagnoses Cardiac sarcoidosis Procedures MR cardiac morphology and function w and wo IV contrast Concepción Godoy APRN-CNP 703 [facility] 2, [facility] [address] [place] [address] Phone: tel: fax: Referral ID Status Reason Start Date Expiration Date Visits Requested Visits Authorized [id number] Authorized Perform Procedure 01/16/2025 02/15/2026 1 1 Encounter Details Date Type Department Care Team (Latest Contact Info) Description 01/28/2025 9:30 AM EDT - 01/28/2025 11:59 PM EDT Hospital Encounter [facility] [address] [facility] [address] [place] [address] Cardiac sarcoidosis Discharge Disposition: Home Social History [...] on file documented as of this encounter Medications at Time of Discharge acetaminophen (Tylenol) 500 mg tablet Take 1 tablet (500 mg) by mouth every 4 hours if needed. 07/09/2024 albuterol (Ventolin HFA) 90 mcg/actuation inhaler Inhale 2 puffs every 4 hours if needed. 08/02/2019 aspirin 81 mg tablet Take 81 mg by mouth once daily. atorvastatin (Lipitor) 40 mg tablet 1 tablet (40 mg) once daily. 03/20/2024 dapagliflozin propanediol (Farxiga) 10 mg tablet Take 1 tablet (10 mg) by mouth once every 24 hours. dofetilide (Tikosyn) 250 mcg capsuleIndications:A trial fibrillation, unspecified type (Multi) Take 1 capsule (250 mcg) by mouth every 12 hours. 180 capsule 3 01/25/2025 5:37 PM EDT 08/12/2024 6 finasteride (Proscar) 5 mg tablet Take 1 tablet (5 mg) by mouth once daily. 02/17/2020 fluticasone propion-salmeteroL (Advair Diskus) 500-50 mcg/dose diskus inhaler Inhale 1 puff. 08/14/2023 furosemide (Lasix) 20 mg tabletIndications:No n-ischemic cardiomyopathy (Multi) Take 1 tablet (20 mg) by mouth once daily. 01/17/2025 6 furosemide (Lasix) 40 mg tablet Take 1 tablet (40 mg) by mouth if needed. ipratropium-albutero L (Duo-Neb) 0.5-2.5 mg/3 mL nebulizer solution Inhale 3 mL every 6 hours if needed. 09/09/2019 latanoprost (Xalatan) 0.005 % ophthalmic solution 1 drop once daily at bedtime. 10/05/2023 magnesium hydroxide (Milk of Magnesia) 400 mg/5 mL suspension Take by mouth once daily as needed. 07/09/2024 magnesium oxide (Mag-Ox) 400 mg (241.3 mg magnesium) tabletIndications:No n-ischemic cardiomyopathy (Multi) Take 1 tablet (400 mg) by mouth once daily. 90 tablet 3 03/27/2024 5 menthol (Biofreeze, menthol,) 4 % gel gel Apply topically. 07/12/2024 metoprolol succinate XL (Toprol-XL) 25 mg 24 hr tabletIndications:No n-ischemic cardiomyopathy (Multi),Diastolic dysfunction,Paroxysm al atrial fibrillation (Multi) Take 1 tablet (25 mg) by mouth once daily at bedtime. Do not crush or chew. 90 tablet 3 12/30/2024 3:39 PM EDT 05/24/2024 6 multivitamin (Multiple Vitamins) tablet Take 1 tablet by mouth once daily. 12/15/2016 pantoprazole (ProtoNix) 40 mg EC tablet 1 tablet (40 mg) early in the morning.. 02/19/2024 potassium chloride CR (Klor-Con M20) 20 mEq ER tabletIndications:No n-ischemic cardiomyopathy (Multi) Take 1 tablet (20 mEq) by mouth once daily. Do not crush or chew. 90 tablet 3 01/23/2025 3:40 PM EDT 01/23/2025 6 rivaroxaban (Xarelto) 20 mg tabletIndications:At rial fibrillation, unspecified type (Multi) Take 1 tablet (20 mg) by mouth once daily in the evening. Take with meals. 90 tablet 3 01/22/2025 3:06 PM EDT 03/22/2024 5 spironolactone (Aldactone) 25 mg tablet Take 0.5 tablets (12.5 mg) by mouth once daily. tamsulosin (Flomax) 0.4 mg 24 hr capsule Take 1 capsule (0.4 mg) by mouth 2 times a day. 12/16/2019 valACYclovir (Valtrex) 1 gram tablet Take 1 tablet (1,000 mg) by mouth 2 times a day. documented as of this encounter Plan of Treatment Upcoming Encounters Date Type Department Care Team (Late st Contact Info) Description 02/18/2025 10:45 AM EDT Appointment [facility] [address] [facility] [address] [place] [address] 06/11/2025 11:00 AM EST Office Visit [facility] [address] [facility] [address] [place] [phone] Shannon Santana MD [address] [facility] [address], [address] [place] [address] documented as of this encounter Procedures Procedure Name Priority Date/Time Associated Diagnosis Comments MR CARDIAC MORPHOLOGY AND FUNCTION W AND WO IV CONTRAST Routine 01/28/2025 12:02 PM EDT Cardiac sarcoidosis documented in this encounter Results * MR [...] Hoang Goff 01/29/2025 8:47 AM Dictation workstation: [id number] Narrative 01/29/2025 8:47 AM EDT Interpreted By: Hoang Goff, STUDY: MR CARDIAC MORPHOLOGY AND FUNCTION W AND WO IV CONTRAST; 01/28/2025 12:02 pm INDICATION: Signs/Symptoms:cardiac sarcoidosis, increasing arrhythmia. This study is performed to assess myocardial viability and damage, and to quantitate left ventricular and valvular function. 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 ACCESSION NUMBER(S): [id number] ORDERING CLINICIAN: CONCEPCIÓN GODOY TECHNIQUE: Siemens1.5 Reina MRI scanner. Axial [...] 93 gm; LVMi = 52 gm/m2 *Farzaneh DAWSON et al. Normalized left ventricular systolic and [...] ventricular and valvular function. 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 ACCESSION NUMBER(S): [id number] ORDERING CLINICIAN: CONCEPCIÓN GODOY TECHNIQUE: Siemens1.5 Reina MRI scanner. Axial [...] 93 gm; LVMi = 52 gm/m2 *Farzaneh DAWSON et al. Normalized left ventricular systolic and [...] Hoang Goff 01/29/2025 8:47 AM Dictation workstation: [id number] Concepción Godoy OPERATIONS MANAGEMENT TRAINEE-BLOOD BANK MANAGER IMG MRI PROCEDURES Final Result documented in this encounter Visit Diagnoses Diagnosis Cardiac sarcoidosis documented in this encounter Administered Medications Inactive Administered Medications - up to 3 most recent administrations Medication Order MAR Action Action Date Dose Rate Site gadoterate meglumine (Dotarem) 0.5 mmol/mL contrast injection 25 mL 25 mL, intravenous, Once in imaging, Starting on 01/28/25 at 1007, For 1 dose, Administer undiluted as rapid I.V. bolus injection Given 01/28/2025 12:02 PM EDT 25 mL documented in this encounter Additional Health Concerns Assessment Noted Time A fall risk assessment has been complete d for the patient 01/15/2025 8:47 AM EDT documented as of this encounter Care Teams Field Administrative Assistant Relationship Specialty Start Date End Date Adam Wylie DO [address] [place] [address] PCP - General Internal Medicine 10/13/23 Juliette Perla, radiology physician assistantButter Wrapper 01/09/25 documented as of this encounter
--- OUTSIDE RECORDS SUMMARY | 2025-01-30 12:15 | XMS_ITS | Clinical Summary ---
Author Organization [facility] Address [address] [place] [address] Care Team Providers Care Dumpster Driver Name Role Phone Adam Wylie DO Primary Care Provider [phone] Social History Tobacco Use Types Packs/Day Years Used Date Smoking Tobacco: Never Assessed Sex and Gender Information Value Date Recorded Sex Assigned at Not on file Legal Sex Male 6:50 PM EDT Gender Identity Not on file Sexual Orientation Not on file Plan of Treatment Not on file Insurance [employer] MEDICARE ADVANTAGE Care Teams Dumpster Driver Relationship Specialty Start Date End Date Adam Wylie DO PCP - General Internal Medicine 03/20/24
--- OUTSIDE RECORDS SUMMARY | 2025-01-30 12:15 | XMS_ITS | Encounter Summary ---
Author Organization [facility] Address [address] [place] [address] Phone Care Team Providers Care Psychologist Educational Name Role Phone Adam Wylie DO Primary Care Provider [phone] Juliette Perla RN Unavailable Unavailable Encounter Details Date Type Department Care Team (Late st Contact Info) Description 03/14/2024 Scanned Document [facility] [address] [place] [address] Scanning, Generic Provider Social History Tobacco Use Types Packs/Day Years Used Date Smoking Tobacco: Never Smokeless Tobacco: Current Chew Alcohol Use Standard Drinks/Week Comments Yes 0 (1 standard drink = 0.6 oz pur e alcohol) Sex and Gender Information Value Date Recorded Sex Assigned at Not on file Legal Sex Male 8:50 AM EST Gender Identity Not on file Sexual Orientation Not on file COVID-19 Exposure Response Date Recorded In the last 10 days, have yo u been in contact with someone who was confirmed or suspected to have Coronavirus/COVID-19? No / Unsure 02/20/2024 1:42 PM EDT documented as of this encounter Plan of Treatment Upcoming Encounters Date Type Department Care Team (Late st Contact Info) Description 02/18/2025 10:45 AM EDT Appointment [address] [place] [address] 06/11/2025 11:00 AM EST Office Visit [address] [place] [address] Shannon Santana MD 703 [facility] 2, [address] [place] [address] Scheduled Orders Name Type Priority Associated Diagnoses Orde r Schedule Ultrasound- OnBase Scan Imaging O rdered: 03/14/2024 documented as of this encounter Visit Diagnoses Not on filedocumented in this encounter Additional Health Concerns Assessment Noted Time A fall risk assessment has been complete d for the patient 10/13/2023 1:35 PM EDT documented as of this encounter Care Teams Psychologist Educational Relationship Specialty Start Date End Date Adam Wylie DO [address] [place] [address] PCP - General Internal Medicine 10/13/23 Juliette Perla, lumber stackerLime Mixer Tender 01/09/25 documented as of this encounter
--- OUTSIDE RECORDS SUMMARY | 2025-01-30 12:15 | XMS_ITS | Encounter Summary ---
Author Organization [facility] Address [address] [place] [address] Phone Care Team Providers Care Mobile Development Manager Name Role Phone Adam Wylie Primary Care Provider [phone] Juliette Perla RN Unavailable Unavailable Reason for Visit * Reason Onset Date Comments Results 01/23/2025 Encounter Details Date Type Department Care Team (Late st Contact Info) Description 01/23/2025 Telephone [facility] [address] [address] Beverley Morse LPN Results Social History Tobacco Use Types Packs/Day Years [...] on file documented as of this encounter Miscellaneous Notes * Telephone Encounter - Kassidy Waggoner RN - 01/24/2025 12:06 PM EDT Labs printed and faxed * Telephone Encounter - Beverley Morse LPN - 01/23/2025 9:25 AM EDT Lab slips need faxed to the [facility]. RX preppred * Telephone Encounter - Beverley Morse LPN - 01/23/2025 9:25 AM EDT Result Communication Results were successfully communicated with the patient and they acknowledged their understanding. * Telephone Encounter - Beverley Morse LPN - 01/23/2025 9:25 AM EDT ----- Message from Concepción Godoy sent at 01/20/2025 8:59 AM EDT ----- Leukocytosis likely due to recent steroid taper - verify no signs infection. K 3.1 - increase potassium to 40meq for next 3 days then 20meq daily Repeat chem6 & CBC in one week ----- Message ----- From: Ramya Edgar Sent: 01/20/2025 8:25 AM EDT To: Concepción Godoy APRN-SUPERVISOR CHEMICAL documented in this encounter Plan of Treatment Upcoming Encounters Date Type Department Care Team (Late st Contact Info) Description 02/18/2025 10:45 AM EDT Appointment [address] [place] [address] 06/11/2025 11:00 AM EST Office Visit [address] [address] Shannon Santana MD [address] [place] [address] 2, [address] [address] Scheduled Orders Name Type Priority Associated Diagnoses Orde r Schedule CBC Lab Routine Non-ischemic cardiomyopathy (Multi) Expected: 01/30/2025, Expires: 04/30/2025 Basic Metabolic Panel Lab Routine Non-ischemic cardiomyopathy (Multi) Expected: 01/30/2025, Expires: 04/30/2025 documented as of this encounter Visit Diagnoses Diagnosis Non-ischemic cardiomyopathy (Multi) Other primary cardiomyopathies documented in this encounter Additional Health Concerns Assessment Noted Time A fall risk assessment has been complete d for the patient 01/15/2025 8:47 AM EDT documented as of this encounter Care Teams Mobile Development Manager Relationship Specialty Start Date End Date Adam Wylie DO [address] [place] [address] PCP - General Internal Medicine 10/13/23 Juliette Perla, talent development analystCarpentry Foreman 01/09/25 documented as of this encounter
--- OUTSIDE RECORDS SUMMARY | 2025-01-30 12:15 | XMS_ITS | Encounter Summary ---
Author Organization [facility] Address [address] [place] [address] Phone Care Team Providers Care Logging Worker Name Role Phone Adam Wylie DO Primary Care Provider [phone] Juliette Perla RN Unavailable Unavailable Encounter Details Date Type Department Care Team (Latest Contact Info) Description 01/17/2025 Travel Social History Tobacco Use Types Packs/Day Years [...] Info) Description 02/18/2025 10:45 AM EDT Appointment [address] [place] [address] 06/11/2025 11:00 AM EST Office Visit [address] [place] [address] Shannon Santana MD 703 [facility] 2, [address] [place] [address] documented as of this encounter Visit Diagnoses Not on filedocumented in this encounter Additional Health Concerns Assessment Noted Time A fall risk assessment has been complete d for the patient 01/15/2025 8:47 AM EDT documented as of this encounter Care Teams Logging Worker Relationship Specialty Start Date End Date Adam Wylie DO [address] [place] [address] PCP - General Internal Medicine 10/13/23 Juliette Perla, buildings and grounds supervisorCertified Physical Therapist Assistant 01/09/25 documented as of this encounter
--- OUTSIDE RECORDS SUMMARY | 2025-01-30 12:15 | XMS_ITS | Encounter Summary ---
Author Organization [facility] Address [address] [place] [address] Phone Care Team Providers Care Mail Sorter And Delivery Name Role Phone Adam Wylie Primary Care Provider [phone] Juliette Perla RN Unavailable Unavailable Reason for Visit * Reason Onset Date Comments critical lab result 01/17/2025 Encounter Details Date Type Department Care Team (Late st Contact Info) Description 01/17/[address] [email or web address] [address] [place] [address] Leann Curtis LPN critical lab result Social History Tobacco Use Types Packs/Day Years [...] encounter Miscellaneous Notes * Telephone Encounter - Leann Curtis LPN - 01/17/2025 3:24 PM EDT Phoned patient and discussed lab results and new order. States he does take his Potassium. * Telephone Encounter - Leann Curtis LPN - 01/17/2025 2:28 PM EDT [facility] lab phoned with critical BNP level of 2,617. Private massaged Concepción Guallpa NP and will await response. To Concepción Guallpa NP documented in this encounter Plan of Treatment Upcoming Encounters Date Type Department Care Team (Late st Contact Info) Description 02/18/2025 10:45 AM EDT Appointment [facility] 703 [facility] [address] [place] [address] 06/11/2025 11:00 AM EST Office [facility] 703 [facility] [address] [place] [address] Shannon Santana MD 703 [facility] [address], [address] [place] [address] documented as of this encounter Visit Diagnoses Diagnosis Non-ischemic cardiomyopathy (Multi) Other primary cardiomyopathies documented in this encounter Additional Health Concerns Assessment Noted Time A fall risk assessment has been complete d for the patient 01/15/2025 8:47 AM EDT documented as of this encounter Care Teams Mail Sorter And Delivery Relationship Specialty Start Date End Date Adam Wylie DO [address] [place] [address] PCP - General Internal Medicine 10/13/23 Juliette Perla, portuguese tutorCrab Steamer 01/09/25 documented as of this encounter
--- OUTSIDE RECORDS SUMMARY | 2025-01-30 12:15 | XMS_ITS | Encounter Summary ---
Author Organization [facility] Address [address] [place] [address] Phone Care Team Providers Care Licensed Vocational Nurse Name Role Phone Adam Wylie Primary Care Provider [phone] Juliette Perla RN Unavailable Unavailable Encounter Details Date Type Department Care Team (Late st Contact Info) Description 01/17/2025 Scanned Document [facility] [address] [place] [address] Scanning, Generic Provider Social History [...] Info) Description 02/18/2025 10:45 AM EDT Appointment [address] [place] [address] 06/11/2025 11:00 AM EST Office Visit [address] [place] [address] Shannon Santana MD 703 [facility] 2, [address] [address] documented as of this encounter Procedures Procedure Name Priority Date/Time Associated Diagnosis Comments OUTSIDE LAB SCAN 01/17/2025 documented in this encounter Results * OUTSIDE LAB SCAN (01/17/2025) Narrative 01/17/2025 Ordered by an unspecified provider. us Generic Provider Scanning OUTSIDE SCAN Final Result documented in this encounter Visit Diagnoses Not on filedocumented in this encounter Additional Health Concerns Assessment Noted Time A fall risk assessment has been complete d for the patient 01/15/2025 8:47 AM EDT documented as of this encounter Care Teams Licensed Vocational Nurse Relationship Specialty Start Date End Date Adam Wylie DO [address] [place] [address] PCP - General Internal Medicine 10/13/23 Juliette Perla, underwriting internSample Steamer 01/09/25 documented as of this encounter
--- OUTSIDE RECORDS SUMMARY | 2025-01-30 12:15 | XMS_ITS | Encounter Summary ---
Author Organization [facility] Address [address] [place] [address] Phone Care Team Providers Care Bulk Plant Operator Name Role Phone Adam Wylie DO Primary Care Provider [phone] Juliette Perla RN Unavailable Unavailable Encounter Details Date Type Department Care Team (Late st Contact Info) Description 01/16/2025 Patient Outreach [address] [address] Juliette Perla, JOANNE Social History Tobacco Use Types Packs/Day Years [...] on file documented as of this encounter Progress Notes * Juliette Perla RN - 01/16/2025 3:26 PM EDT Confirmation of at least 2 patient identifiers. Completed telephonic follow-up with patient after recent visit with Concepción Harvey Spoke to patient during outreach call. Patient reports feeling: Improved Patient has questions or concerns about medications: No Have all prescribed medications been filled? Yes Patient has necessary resources to manage their care? Yes Patient has questions or concerns? No Next care management follow-up approximately within one month. Mule Ridermotion picture printer information provided to patient. documented in this encounter Plan of Treatment Upcoming Encounters Date Type Department Care Team (Late st Contact Info) Description 02/18/2025 10:45 AM EDT Appointment [address] [facility] [address] [place] [address] 06/11/2025 11:00 AM EST Office Visit [facility] 703 [facility] [address] [place] [address] Shannon Santana MD 7[address] [facility] [address], [address] [place] [address] documented as of this encounter Visit Diagnoses Not on filedocumented in this encounter Additional Health Concerns Assessment Noted Time A fall risk assessment has been complete d for the patient 01/15/2025 8:47 AM EDT documented as of this encounter Care Teams Bulk Plant Operator Relationship Specialty Start Date End Date Adam Wylie DO [address] [place] [address] PCP - General Internal Medicine 10/13/23 Juliette Perla, customer contact sales associateSpeech Language Pathologist Assistant 01/09/25 documented as of this encounter
--- OUTSIDE RECORDS SUMMARY | 2025-01-30 12:15 | XMS_ITS | Encounter Summary ---
Author Organization [facility] Address [address] [place] [address] Phone Care Team Providers Care Division Operations Manager Name Role Phone Adam Wylie DO Primary Care Provider [phone] Juliette Perla RN Unavailable Unavailable Encounter Details Date Type Department Care Team (Late st Contact Info) Description 03/20/2024 Scanned Document [facility] [address] [place] [address] Scanning, Generic Provider Social History [...] Info) Description 02/18/2025 10:45 AM EDT Appointment [address] [place] [address] 06/11/2025 11:00 AM EST Office Visit [address] [place] [address] Shannon Santana MD 703 [facility] 2, [address] [place] [address] documented as of this encounter Visit Diagnoses Not on filedocumented in this encounter Additional Health Concerns Assessment Noted Time A fall risk assessment has been complete d for the patient 10/13/2023 1:35 PM EDT documented as of this encounter Care Teams Division Operations Manager Relationship Specialty Start Date End Date Adam Wylie DO [address] [place] [address] PCP - General Internal Medicine 10/13/23 Juliette Perla, community service officerLaser Print Operator 01/09/25 documented as of this encounter
--- OUTSIDE RECORDS SUMMARY | 2025-01-30 12:15 | XMS_ITS | Encounter Summary ---
Author Organization [facility] Address [address] [place] [address] Phone Care Team Providers Care Specialist Physician Name Role Phone Adam Wylie DO Primary Care Provider [phone] Juliette Perla RN Unavailable Unavailable Encounter Details Date Type Department Care Team (Late st Contact Info) Description 03/15/2024 Scanned Document [facility] [address] [place] [address] Scanning, Generic Provider Social History [...] Info) Description 02/18/2025 10:45 AM EDT Appointment [address] [place] [address] 06/11/2025 11:00 AM EST Office Visit [address] [place] [address] Shannon Santana MD 703 [facility] 2, [address] [place] [address] documented as of this encounter Visit Diagnoses Not on filedocumented in this encounter Additional Health Concerns Assessment Noted Time A fall risk assessment has been complete d for the patient 10/13/2023 1:35 PM EDT documented as of this encounter Care Teams Specialist Physician Relationship Specialty Start Date End Date Adam Wylie DO [address] [place] [address] PCP - General Internal Medicine 10/13/23 Juliette Perla, beef splitterLead Pastor 01/09/25 documented as of this encounter
--- OUTSIDE RECORDS SUMMARY | 2025-01-30 12:15 | XMS_ITS | Encounter Summary ---
Author Organization [facility] Address [address] [place] [address] Phone Care Team Providers Care Assistant Professor Of Chemistry Name Role Phone Adam Wylie Primary Care Provider [phone] Juliette Perla RN Unavailable Unavailable Encounter Details Date Type Department Care Team (Late st Contact Info) Description 02/02/2024 Scanned Document [facility] [address] [place] [phone] Scanning, Generic Provider Social History Tobacco Use [...] Info) Description 02/18/2025 10:45 AM EDT Appointment [place] [address] [place] [phone] 06/11/2025 11:00 AM EST Office Visit [address] [place] [phone] Shannon Santana MD 703 [facility] 2, [address] [address] documented as of this encounter Procedures Procedure Name Priority Date/Time Associated Diagnosis Comments ECHOCARDIOGRAM 02/02/2024 documented in this encounter Results * Echocardiogram (02/02/2024) Narrative 02/02/2024 Ordered by an unspecified provider. us Generic Provider Scanning CV ECHO PROCEDURES Fin al Result documented in this encounter Visit Diagnoses Not on filedocumented in this encounter Additional Health Concerns Assessment Noted Time A fall risk assessment has been complete d for the patient 10/13/2023 1:35 PM EDT documented as of this encounter Care Teams Assistant Professor Of Chemistry Relationship Specialty Start Date End Date Adam Wylie DO [address] [place] [address] PCP - General Internal Medicine 10/13/23 Juliette Perla, oracle wms consultantAirflight Attendants Supervisor 01/09/25 documented as of this encounter
--- OUTSIDE RECORDS SUMMARY | 2025-01-30 12:16 | XMS_ITS | Encounter Summary ---
Author Organization [facility] Address [address] [place] [address] Phone Care Team Providers Care Insurance Biller Name Role Phone Adam Wylie DO Primary Care Provider [phone] Juliette Perla RN Unavailable Unavailable Encounter Details Date Type Department Care Team (Late st Contact Info) Description 03/13/2024 Scanned Document [facility] [address] [place] [address] Scanning, Generic Provider Social History [...] Info) Description 02/18/2025 10:45 AM EDT Appointment [place] [place] [address] 06/11/2025 11:00 AM EST Office Visit [address] [place] [address] Shannon Santana MD 703 [facility] 2, [address] [place] [address] documented as of this encounter Visit Diagnoses Not on filedocumented in this encounter Additional Health Concerns Assessment Noted Time A fall risk assessment has been complete d for the patient 10/13/2023 1:35 PM EDT documented as of this encounter Care Teams Insurance Biller Relationship Specialty Start Date End Date Adam Wylie DO [address] [place] [address] PCP - General Internal Medicine 10/13/23 Juliette Perla, operating theatre technicianFitness Sales Consultant 01/09/25 documented as of this encounter
--- OUTSIDE RECORDS SUMMARY | 2025-01-30 12:16 | XMS_ITS ---
Author Organization [facility] Address [address] [place] [address] Phone Care Team Providers Care Library Circulation Technician Name Role Phone Adam Wylie DO Primary Care Provider [phone] Juliette Perla RN Unavailable Unavailable Transitional Care Management Status:Enrolled (Active) Start date:01/09/2025 Enrollment date:01/10/2025 Current support & services provided:Medium Complexity Transitional Care Management Overview Transitional Care Management (TCM) is a [facility] Program designed to decrease risk and increase continuity of care for patients after discharge. Case Team Name Relationship Phone Juliette Perla RN(Responsible Staff) Care Manag er Continued Care and Services Coordination
--- OUTSIDE RECORDS SUMMARY | 2025-01-30 12:16 | XMS_ITS | Clinical Summary ---
Author Organization [facility] Address [id number] [address] 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 Hypotension 07/21/2024 Benign prostatic hyperplasia with lower urinary tract symptoms 07/21/2024 Hypokalemia 07/21/2024 Encephalopathy, unspecified 07/21/2024 Alcohol dependence, in remission 07/21/2024 Occlusion and stenosis of right carotid artery 0 07/21/2024 Esophageal reflux 07/21/2024 Hypo-osmolality and hyponatremia 07/21/2024 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 Chronic systolic congestive heart failure 2024 Muscle weakness (generalized) 07/21/2024 Other spondylosis, lumbar region 07/21/2024 Gross hematuria 07/21/2024 Chronic atrial fibrillation 07/21/2024 Social History Tobacco Use Types Packs/Day Years Used Date Smoking Tobacco: Never Assessed Childcare Answer Date Recorded Childcare Unknown 10/24/2018 Employment Answer Date Recorded Employment Unknown 10/24/2018 Sex and Gender Information Value Date Recorded Sex Assigned at Not on file Legal Sex Male 11:25 AM EDT Gender Identity Not on file Sexual Orientation Not on file Last Filed Vital Signs Vital Sign Reading Time Taken Comments Blood Pressure 114/66 07/23/2024 4:49 PM EDT Pulse 76 07/23/2024 4:49 PM EDT Temperature 36.5 C (97.7 F) 07/23/2024 4:49 PM EDT Respiratory Rate 18 07/23/2024 4:49 PM EDT Oxygen Saturation 97% 07/23/2024 4:49 PM EDT Inhaled Oxygen Concentration - - Weight 63.1 kg (139 lb 3.2 oz) 07/23/2024 4:49 P M EDT Height 182.9 cm (6') 07/23/2024 4:49 PM EDT Body Mass Index 18.88 07/23/2024 4:49 PM EDT Plan of Treatment Health Maintenance Due Date Last Done Comments Depression Screening 1966 Tobacco Screening 1966 DTaP,Tdap and Td Vaccines (1 - Tdap) 1973 Zoster (Shingles) Vaccine (1 of 2) 2004 Fall Risk Screening 08/19/2019 Influenza Vaccine 01/13/2025 Adult BMI Screening 07/23/2025 07/23/2024 Medical Devices Not on file
--- OUTSIDE RECORDS SUMMARY | 2025-01-30 12:16 | XMS_ITS | Encounter Summary ---
Author Organization [facility] Address [address] [place] [id number] Phone Care Team Providers Care B And B Gang Worker Name Role Phone Adam Wylie DO Primary Care Provider [phone] Adam Wylie DO Primary Care Provider [phone] Juliette Perla RN Unavailable Unavailable Encounter Details Date Type Department Care Team (Late st Contact Info) Description 04/19/2022 Orders Only [facility] [address] [place] [address] Conversion, Onbase Social History Tobacco Use Types Packs/Day Years [...] Info) Description 02/18/2025 10:45 AM EDT Appointment [address] [place] [phone] 06/11/2025 11:00 AM EST Office Visit [address] [place] [phone] Shannon Santana MD 703 [facility] 2, [address] [address] Scheduled Orders Name Type Priority Associated Diagnoses Orde r Schedule OUTSIDE LAB SCAN Lab Ordered: 04/19/2022 documented as of this encounter Visit Diagnoses Not on filedocumented in this encounter Care Teams B And B Gang Worker Relationship Specialty Start Date End Date Adam Wylie DO PCP - General 12/21/18 10/12/23 Adam Wylie DO [address] [place] [address] PCP - General Internal Medicine 10/13/23 Juliette Perla, juvenile detention officerTherapeutic Sales Specialist 01/09/25 documented as of this encounter
--- OUTSIDE RECORDS SUMMARY | 2025-01-30 12:16 | XMS_ITS | Encounter Summary ---
Author Organization [facility] Address [address] [place] [address] Phone Care Team Providers Care Pharmacy Laboratory Technician Name Role Phone Adam Wylie Primary Care Provider [phone] Juliette Perla RN Unavailable Unavailable Encounter Details Date Type Department Care Team (Late st Contact Info) Description 02/04/2024 Scanned Document [facility] [address] [place] [phone] Scanning, Generic Provider Social History Tobacco Use [...] Info) Description 02/18/2025 10:45 AM EDT Appointment [place] [address] [place] [phone] 06/11/2025 11:00 AM EST Office Visit [address] [place] [address] Shannon Santana MD 703 [facility] 2, [address] [address] documented as of this encounter Visit Diagnoses Not on filedocumented in this encounter Additional Health Concerns Assessment Noted Time A fall risk assessment has been complete d for the patient 10/13/2023 1:35 PM EDT documented as of this encounter Care Teams Pharmacy Laboratory Technician Relationship Specialty Start Date End Date Adam Wylie DO [address] [place] [place] [address] PCP - General Internal Medicine 10/13/23 Juliette Perla, operational review sergeantMelt Superintendant 01/09/25 documented as of this encounter
--- OUTSIDE RECORDS SUMMARY | 2025-01-30 12:16 | XMS_ITS | Encounter Summary ---
Author Organization [facility] Address [address] [place] [address] Phone Care Team Providers Care Candy Catcher Name Role Phone Adam Wylie Primary Care Provider [phone] Juliette Perla RN Unavailable Unavailable Encounter Details Date Type Department Care Team (Late st Contact Info) Description 02/03/2024 Scanned Document [facility] [address] [place] [phone] Scanning, Generic Provider Social History Tobacco Use [...] Info) Description 02/18/2025 10:45 AM EDT Appointment [place] [address] [place] [phone] 06/11/2025 11:00 AM EST Office Visit [address] [place] [address] Shannon Santana MD 703 [facility] 2, [address] [address] documented as of this encounter Visit Diagnoses Not on filedocumented in this encounter Additional Health Concerns Assessment Noted Time A fall risk assessment has been complete d for the patient 10/13/2023 1:35 PM EDT documented as of this encounter Care Teams Candy Catcher Relationship Specialty Start Date End Date Adam Wylie DO [address] [place] [place] [address] PCP - General Internal Medicine 10/13/23 Juliette Perla, fruit buyerMold Making Plastics Sheets Supervisor 01/09/25 documented as of this encounter
--- OUTSIDE RECORDS SUMMARY | 2025-01-30 12:16 | XMS_ITS | Encounter Summary ---
Author Organization [facility] Address [address] [place] [address] Phone Care Team Providers Care Business Representative Name Role Phone Adam Wylie Primary Care Provider [phone] Juliette Perla RN Unavailable Unavailable Encounter Details Date Type Department Care Team (Late st Contact Info) Description 01/04/2025 Scanned Document [facility] [address] [place] [address] Scanning, Generic Provider Social History [...] Info) Description 02/18/2025 10:45 AM EDT Appointment [place] [place] [phone] 06/11/2025 11:00 AM EST Office Visit [address] [place] [phone] Shannon Santana MD 703 [facility] 2, [address] [address] documented as of this encounter Procedures Procedure Name Priority Date/Time Associated Diagnosis Comments OUTSIDE IMAGING SCAN 01/04/2025 documented in this encounter Results * OUTSIDE IMAGING SCAN (01/04/2025) Anatomical Region Laterality Modality Other Narrative 01/04/2025 Ordered by an unspecified provider. us Generic Provider Scanning OUTSIDE SCAN Final Result documented in this encounter Visit Diagnoses Not on filedocumented in this encounter Additional Health Concerns Assessment Noted Time A fall risk assessment has been complete d for the patient 10/31/2024 11:24 AM EDT documented as of this encounter Care Teams Business Representative Relationship Specialty Start Date End Date Adam Wylie DO [address] [place] [address] PCP - General Internal Medicine 10/13/23 Juliette Perla, allergist/pediatric pulmonologistExhaust And Muffler Fitter 01/09/25 documented as of this encounter
--- OUTSIDE RECORDS SUMMARY | 2025-01-30 12:16 | XMS_ITS | Encounter Summary ---
Author Organization [facility] Address [address] [place] [address] Phone Care Team Providers Care Portfolio Architect Name Role Phone Adam Wylie DO Primary Care Provider [phone] Juliette Perla RN Unavailable Unavailable Encounter Details Date Type Department Care Team (Latest Contact Info) Description 01/28/2025 Travel Social History Tobacco Use Types Packs/Day [...] Info) Description 02/18/2025 10:45 AM EDT Appointment [address] [place] [address] 06/11/2025 11:00 AM EST Office Visit [address] [place] [phone] Shannon Santana MD 703 [facility] 2, [address] [place] [address] documented as of this encounter Visit Diagnoses Not on filedocumented in this encounter Additional Health Concerns Assessment Noted Time A fall risk assessment has been complete d for the patient 01/15/2025 8:47 AM EDT documented as of this encounter Care Teams Portfolio Architect Relationship Specialty Start Date End Date Adam Wylie DO [address] [place] [address] PCP - General Internal Medicine 10/13/23 Juliette Perla, surgical clinical reviewerRealtime Captioner 01/09/25 documented as of this encounter
--- OUTSIDE RECORDS SUMMARY | 2025-01-30 12:16 | XMS_ITS | Clinical Summary ---
Author Organization [facility] Address [address] [place] [address] Phone Care Team Providers Care Risk Assessment Consultant Name Role Phone Adam Wylie Primary Care Provider [phone] Juliette Perla RN Unavailable Unavailable Allergies No known active allergies Medications albuterol (Ventolin HFA) 90 mcg/actuation inhaler Inhale 2 puffs every 4 hours if needed. 08/02/19 20 Active finasteride (Proscar) 5 mg tablet Take 1 tablet (5 mg) by mouth once daily. 02/17/20 20 Active ipratropium-albute roL (Duo-Neb) 0.5-2.5 mg/3 mL nebulizer solution Inhale 3 mL every 6 hours if needed. 09/09/19 20 Active multivitamin (Multiple Vitamins) tablet Take 1 tablet by mouth once daily. 12/16/19 17 Active tamsulosin (Flomax) 0.4 mg 24 hr capsule Take 1 capsule (0.4 mg) by mouth 2 times a day. 12/16/19 20 Active rivaroxaban (Xarelto) 20 mg tabletIndications: Atrial fibrillation, unspecified type (Multi) Take 1 tablet (20 mg) by mouth once daily in the evening. Take with meals. 90 tablet 3 5 3:06 PM EDT 03/22/20 24 025 Active atorvastatin (Lipitor) 40 mg tablet 1 tablet (40 mg) once daily. 03/20/20 24 Active fluticasone propion-salmeteroL (Advair Diskus) 500-50 mcg/dose diskus inhaler Inhale 1 puff. 08/14/19 24 Active latanoprost (Xalatan) 0.005 % ophthalmic solution 1 drop once daily at bedtime. 10/05/19 24 Active pantoprazole (ProtoNix) 40 mg EC tablet 1 tablet (40 mg) early in the morning.. 02/19/20 24 Active magnesium oxide (Mag-Ox) 400 mg (241.3 mg magnesium) tabletIndications: Non-ischemic cardiomyopathy (Multi) Take 1 tablet (400 mg) by mouth once daily. 90 tablet 3 03/27/20 24 025 Active metoprolol succinate XL (Toprol-XL) 25 mg 24 hr tabletIndications: Non-ischemic cardiomyopathy (Multi),Diastolic dysfunction,Paroxy smal atrial fibrillation (Multi) Take 1 tablet (25 mg) by mouth once daily at bedtime. Do not crush or chew. 90 tablet 3 5 3:39 PM EDT 05/24/19 25 026 Active dofetilide (Tikosyn) 250 mcg capsuleIndications :Atrial fibrillation, unspecified type (Multi) Take 1 capsule (250 mcg) by mouth every 12 hours. 180 capsule 3 5 5:37 PM EDT 08/13/19 25 026 Active acetaminophen (Tylenol) 500 mg tablet Take 1 tablet (500 mg) by mouth every 4 hours if needed. 07/09/19 25 Active menthol (Biofreeze, menthol,) 4 % gel gel Apply topically. 07/12/19 Active magnesium hydroxide (Milk of Magnesia) 400 mg/5 mL suspension Take by mouth once daily as needed. 07/09/19 Active aspirin 81 mg tablet Take 81 mg by mouth once daily. Active spironolactone (Aldactone) 25 mg tablet Take 0.5 tablets (12.5 mg) by mouth once daily. Active dapagliflozin propanediol (Farxiga) 10 mg tablet Take 1 tablet (10 mg) by mouth once every 24 hours. Active valACYclovir (Valtrex) 1 gram tablet Take 1 tablet (1,000 mg) by mouth 2 times a day. Active furosemide (Lasix) 40 mg tablet Take 1 tablet (40 mg) by mouth if needed. Active furosemide (Lasix) 20 mg tabletIndications: Non-ischemic cardiomyopathy (Multi) Take 1 tablet (20 mg) by mouth once daily. 01/18/20 25 026 Active potassium chloride CR (Klor-Con M20) 20 mEq ER tabletIndications: Non-ischemic cardiomyopathy (Multi) Take 1 tablet (20 mEq) by mouth once daily. Do not crush or chew. 90 tablet 3 5 3:40 PM EDT 01/24/20 25 026 Active fluticasone-umecli din-vilanter (TRELEGY-ELLIPTA) 200-62.5-25 mcg blister with device Fluticasone-Um eclidin-Vilant er (Trelegy Ellipta) 200-62.5-25 mcg blister with device Active 1 INH INHALATION Daily 180 October 22, 2023 11:00pm Rinse after use 10/23/19 24 025 Discontin ued(Thera py completed ) furosemide (Lasix) 20 mg tabletIndications: Non-ischemic cardiomyopathy (Multi) Take 1 tablet (20 mg) by mouth once daily as needed (if swelling occurs to the right leg). 90 tablet 1 5 3:39 PM EDT 05/24/19 25 025 Discontin ued(Dose adjustmen t) potassium chloride CR 10 mEq ER tablet Take 1 tablet (10 mEq) by mouth once daily. 025 Discontin ued(Dose adjustmen t) valsartan (Diovan) 40 mg tablet Take 1 tablet (40 mg) by mouth once daily. 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 Chewing tobacco use 01/15/2025 Assessment & Plan (01/16/2025 2:08 PM EDT): Discussed risk of continued usage Non-ST elevation (NSTEMI) myocardial infarction (Multi) 01/10/2025 LV dysfunction 01/10/2025 Assessment & Plan (01/16/2025 2:07 PM EDT): Jan 2015: TTE LVEF 25% August 2015: [...] at recent discharge and has symptomatic hypotension BMI < 18.5 10/31/2024 Fatigue 05/24/2024 High risk medication use 05/24/2024 Assessment & Plan (01/16/2025 2:05 PM EDT): Prior amiodarone failure Dofetilide 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 0.Jun hospitalization reported Qtc prolongation on dofetlide 250 mcg BID. 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 Sensorineural hearing loss ( SNHL) of left ear with restricted hearing of right ear 07/26/2023 Vertigo 07/26/2023 Resolved Problems Problem Noted Date Diagnosed Date Resolved Date Current smoker 10/13/2023 01/15/2025 Encounters Date Type Department Care Team Description 01/28/2025 9:30 AM EDT - 01/28/2025 11:59 PM EDT Hospital Encounter [facility] [address] [facility] [address] [place] [address] Cardiac sarcoidosis Discharge Disposition: Home 01/28/2025 Travel 01/23/[address] [address] Beverley Morse LPN Results 01/17/2025 11:00 AM EDT Ancillary Procedure [address] [address] Maya Fuentes CMA High risk medication use Discharge Disposition: Home 01/17/2025 10:00 AM EDT Ancillary Procedure [address] [address] 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 (Multi); Takotsubo syndrome; Cardiac sarcoidosis Discharge Disposition: Home 01/17/2025 Scanned Document [facility] [address] [place] [address] Scanning, Generic Provider 01/17/[address] [place] [address] Leann Curtis LPN critical lab result 01/17/2025 Travel 01/16/2025 Patient Outreach [address] [address] Juliette Perla RN 01/15/2025 8:30 AM EDT Office Visit [address] [address] Ning Godoy, BEEF KILLER-CREEL HAND High risk medication use (Primary Dx); 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 (Multi); 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; Takotsubo syndrome; BMI < 18.5; Cardiac sarcoidosis; Chewing tobacco use; Other cardiomyopathy; LV dysfunction Discharge Disposition: Home 01/15/[address] [address] Generic Provider, No Assigned Pcp, 01/15/[address] [address] Deanna Santana MD Error (VOID this visit) 01/15/2025 Travel 01/10/2025 Patient Outreach [address] [address] Juliette Perla RN 01/09/2025 Scanned Document [facility] [address] [place] [address] Scanning, Generic Provider 01/07/2025 Scanned Document [facility] [address] [place] [address] Scanning, Generic Provider 01/06/2025 Scanned Document [facility] [address] [place] [address] Scanning, Generic Provider 01/05/2025 Scanned Document [facility] [address] [place] [address] Scanning, Generic Provider 01/04/2025 Scanned Document [facility] [address] [place] [address] Scanning, Generic Provider 10/31/2024 11:10 AM EDT Office Visit [address] [address] Deanna Santana MD Other fatigue (Primary Dx); Non-ischemic cardiomyopathy (Multi); 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 (Multi); High risk medication use; Pulmonary sarcoidosis (Multi); BMI < 18.5; Current smoker 10/31/2024 Travel from Last 3 Months Immunizations Immunization Administration Dates Next Due Flu vaccine, quadrivalent, h igh-dose, preservative free, age 65y+ (FLUZONE) 02/13/2024 Flu vaccine, trivalent, pres ervative free, HIGH-DOSE, age 65y+ (Fluzone) 03/26/2021 Influenza, seasonal, injectable 03/02/2022,04/19 Pfizer Purple Cap SARS-CoV-2 03/26/2021 Pneumococcal conjugate vaccine, 13-valent (PREVN AR 13) 08/12/2020,06/24/2016 Pneumococcal polysaccharide vaccine, 23-valent, age 2 years and older (PNEUMOVAX 23) 06/29/2016 RSV, 60 Years And Older (AREXVY) 07/16/2024 Family History Medical History Relation Name Comments Valvular heart disease Brother CABG Mother Diabetes Mother PTCA Mother Relation Name Status Comments Brother Father Mother Social History Tobacco Use Types Packs/Day Years Used Date Smoking Tobacco: Never Smokeless Tobacco: Current Chew Tobacco Cessation:Ready to Q uit: Not Asked; Counseling Given: Not Answered Alcohol Use Standard Drinks/Week Comments Never 0 [...] Mass Index 18.58 01/17/2025 11:12 AM EDT Plan of Treatment Upcoming Encounters Date Type Department Care Team (Late st Contact Info) Description 02/18/2025 10:45 AM EDT Appointment [address] [phone] 06/11/2025 11:00 AM EST Office Visit [address] [phone] Deanna Santana MD [facility] [facility] 2, [address] [place] [address] Health Maintenance Due Date Last Done Comments CT Colonography 1955 Colonoscopy 1955 Colorectal Cancer Screening 1955 Creatinine Level 1954 FIT-DNA (Cologuard) 1954 FIT 1954 Lipid Panel 1954 Potassium Level 1954 Sigmoidoscopy 1955 MMR Vaccines (1 of 1 - Standard series) 08/19/1955 Diabetes Screening 1972 Hepatitis C Screening 1972 DTaP/Tdap/Td Vaccines (1 - Tdap) 1976 Zoster Vaccines (1 of 2) 2004 Medicare Annual Wellness Visit (AWV) 09/11/2024 09/11/2023, 09/01/2022, 08/31/2021, Additional history exists COVID-19 Vaccine (2 - season) 2025 03/26/2021 Influenza Vaccine (#1) 2025 , 03/02/2022, 03/26/2021, Additional history exists Echocardiogram 08/09/2025 08/09/2024, 02/12, 02/02/2024 Pneumococcal Vaccine (3 of 3 - PCV20 or PCV21) 08/12/2025 08/12/2020, 06/29/2016, 06/24/2016 Welcome to Medicare Visit Discontinued 2023, 09/01/2022, 08/31/2021, Additional history exists RSV High Risk: (Elderly (60+) or Population) Completed 07/16/2024 HIB Vaccines Aged Out No longer eligi ble based on patient's age to complete this topic HPV Vaccines Aged Out No longer eligi ble based on patient's age to complete this topic Hepatitis A Vaccines Aged Out No long er eligible based on patient's age to complete this topic Hepatitis B Vaccines Aged Out No long er eligible based on patient's age to complete this topic IPV Vaccines Aged Out No longer eligi ble based on patient's age to complete this topic Meningococcal Vaccine Aged Out No juliana damian eligible based on patient's age to complete this topic Rotavirus Vaccines Aged Out No longer eligible based on patient's age to complete this topic Procedures Procedure Name Priority Date/Time Associated Diagnosis Comments MR CARDIAC MORPHOLOGY AND FUNCTION W AND WO IV CONTRAST Routine 01/28/2025 12:02 PM EDT Cardiac sarcoidosis ECG 12-LEAD Routine 01/17/2025 11:07 AM EDT High risk medication use OUTSIDE LAB SCAN 01/17/2025 ECG 12-LEAD Routine 01/15/2025 8:35 AM EDT High risk medication use OUTSIDE IMAGING SCAN 01/04/2025 ECG 12-LEAD Routine 10/31/2024 12:23 PM EDT 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 (Multi) TRANSTHORACIC ECHO (TTE) COMPLETE Routine 08/09/2024 1:07 PM EDT Non-ischemic cardiomyopathy (Multi) Cardiomyopathy, unspecified from Last 3 Months or Most Recently Relevant to Health Maintenance Results * MR cardiac morphology and function [...] Hoang Goff 01/29/2025 8:47 AM Dictation workstation: [id number] Narrative 01/29/2025 8:47 AM EDT Interpreted By: Hoang Goff, STUDY: MR CARDIAC MORPHOLOGY AND FUNCTION W AND WO IV CONTRAST; 01/28/2025 12:02 pm INDICATION: Signs/Symptoms:cardiac sarcoidosis, increasing arrhythmia. This study is performed to assess myocardial viability and damage, and to quantitate left ventricular and valvular function. 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 ACCESSION NUMBER(S): [id number] ORDERING CLINICIAN: NING GODOY TECHNIQUE: Siemens1.5 Reina [...] the visualized organs. Procedure Note Hoang Goff, - 01/29/2025 Interpreted By: Hoang Goff, STUDY: MR CARDIAC MORPHOLOGY AND FUNCTION W AND WO IV CONTRAST; 01/28/2025 12:02 pm INDICATION: Signs/Symptoms:cardiac sarcoidosis, increasing arrhythmia. This study is performed to assess myocardial viability and damage, and to quantitate left ventricular and valvular function. 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 ACCESSION NUMBER(S): [id number] ORDERING CLINICIAN: NING GODOY TECHNIQUE: Siemens1.5 Reina [...] Hoang Goff 01/29/2025 8:47 AM Dictation workstation: [id number] Ning Godoy APRN-CREEL HAND IMG MRI PROCEDURES Final Result * ECG 12 Lead (01/17/2025 11:07 AM EDT) Only the most recent of3 resultswithin the time period is included. Narrative [facility] - 01/17/2025 12:41 PM EDT Normal sinus rhythm with ventricular bigeminy, IVCD, abnormal ECG Ning Godoy APRN-CREEL HAND ECG ORDERABLES Final Res ult [facility] * OUTSIDE LAB SCAN (01/17/2025) Narrative 01/17/2025 Ordered by an unspecified provider. us Generic Provider Scanning OUTSIDE SCAN Final Result * OUTSIDE IMAGING SCAN (01/04/2025) Anatomical Region Laterality Modality Other Narrative 01/04/2025 Ordered by an unspecified provider. us Generic Provider Scanning OUTSIDE SCAN Final Result * TRANSTHORACIC ECHO (TTE) COMPLETE (08/09/2024 1:07 PM EDT) AV mn grad 3 mmHg [facility] AV pk fadi 1.17 m/s [facility] LV Biplane EF 41 % [facility] LVOT diam 2.49 cm [facility] MV E/A ratio 1.18 [facility] Tricuspid annular plane systolic excursion 2.3 cm [facility] MV avg E/e' ratio 6.26 [facility] LA vol index A/L 35.2 ml/m2 [facility] LV EF 50 % [facility] RV free wall pk S' 13.32 cm/s [facility] RVSP 34.1 mmHg [facility] LVIDd 4.75 cm [facility]GO Aortic Valve Area by Continuity of Peak Velocity 2.98 cm2 [facility] AV pk grad 6 mmHg [facility] Aortic Valve Area by Continuity of VTI 3.33 cm2 [facility] LV A4C EF 49.3 [facility] 08/09/2024 12:2 2 PM EDT Narrative [facility] - 08/09/2024 5:39 PM EDT [address], [address] [address] TRANSTHORACIC ECHOCARDIOGRAM REPORT Patient Name: MARY SMALL Reading Physician: [id number] Deanna Santana MD, [facility] Study Date: 08/09/2024 Ordering Provider: [id number] DEANNA SANTANA MRN/PID: [id number] Fellow: Nurse: Date of /Age: 408/18/1955 / 68 years Call Center Professional: Adamaris Yoder RDCS, RT(R), RDMS, RVT Gender Assigned at Additional Staff: : Height: 182.88 cm Admit Date: Weight: 70.76 kg Admission Status: Outpatient BSA / BMI: 1.92 m2 / 21.16 Department Location: [facility] kg/m2 [place] Blood Pressure: 98 /60 mmHg Study Type: TRANSTHORACIC ECHO (TTE) COMPLETE Diagnosis/ICD: Cardiomyopathy, unspecified-I42.9 Indication: NICM CPT Codes: Echo Complete w Full [id number] Patient History: Pertinent History: A-Fib, COPD and [...] AoV Mean P.1 mmHg (1.7-11.5mmHg) LVOT Max Fadi: 0.72 m/s (<=1.1m/s) AoV VTI: 22.13 cm [...] RVOT Vmax: 0.57 m/s (0.6-0.9m/s) PV Max Fadi: 0.8 m/s (0.6-0.9m/s) PV Max P.3 mmHg PV Mean P.3 mmHg AORTA: Asc Ao Diam 4.09 cm [id number] Deanna Santana MD, [facility] Electronically signed on 08/09/2024 at 5:39:23 PM Final Procedure Note Deanna Santana MD - 08/09/[address], [address] [place] [address] TRANSTHORACIC ECHOCARDIOGRAM REPORT Patient Name: MARY SMALL Shannan Physician: [id number] Santana MD,[facility] Study Date: 08/09/2024 Ordering Provider: [id number] JULIANNE SANTANA MRN/PID: [id number] Fellow: Nurse: Date of /Age: 408/18/1955 / 68 years Call Center Professional: Tory URBINA,RT(R), RDMS, RVT Gender Assigned at Additional Staff: : Height: 182.88 cm Admit Date: Weight: 70.76 kg Admission Status: Outpatient BSA / BMI: 1.92 m2 / 21.16 Department Location: [facility] kg/[address] Blood Pressure: 98 /60 mmHg Study Type: TRANSTHORACIC ECHO (TTE) COMPLETE Diagnosis/ICD: Cardiomyopathy, unspecified-I42.9 Indication: NICM CPT Codes: Echo Complete w Full Doppler-[id number] Patient History: Pertinent History: A-Fib, COPD and Pulmonary Sarcoudosis HX of LVthrombus. Study Detail: The following Echo studies were performed: 2D, M-Mode,Doppler and color flow. PHYSICIAN INTERPRETATION: Left Ventricle: Left ventricular ejection fraction is mildly decreased, byvisual estimate at 50%. There is mild concentric left ventricularhypertrophy. The left ventricular cavity size is normal. There is mildlyincreased posterior left ventricular wall thickness. Spectral Dopplershows a normal pattern of left ventricular diastolic filling. Left Atrium: The left atrial size is normal. Right Ventricle: The right ventricle is normal in size. There is normalright ventricular global systolic function. Right Atrium: The right atrial size is normal. Aortic Valve: The aortic valve is trileaflet. The aortic valvedimensionless index is 0.68. There is trace aortic valve regurgitation.The peak instantaneous gradient of the aortic valve is 6 mmHg. The meangradient of the aortic valve is 3 mmHg. Mitral Valve: The mitral valve is normal in structure. The peakinstantaneous gradient of the mitral valve is 2 mmHg. There is no evidenceof mitral valve regurgitation. Tricuspid Valve: The tricuspid valve is structurally normal. No evidenceof tricuspid regurgitation. Pulmonic Valve: The pulmonic valve is structurally normal. There is noindication of pulmonic valve regurgitation. Pericardium: No pericardial effusion noted. Aorta: The aortic root is abnormal. There is mild dilatation of the aorticroot. Systemic Veins: The inferior vena cava appears normal in size. CONCLUSIONS: 1. Left ventricular ejection fraction is mildly decreased, by visualestimate at 50%. 2. There is normal right [...] AoV Mean P.1 mmHg (1.7-11.5mmHg) LVOT Max Fadi: 0.72 m/s (<=1.1m/s) AoV VTI: 22.13 cm [...] RVOT Vmax: 0.57 m/s (0.6-0.9m/s) PV Max Fadi: 0.8 m/s (0.6-0.9m/s) PV Max P.3 mmHg PV Mean P.3 mmHg AORTA: Asc Ao Diam 4.09 cm [id number] Deanna Santana MD, FACC Electronically signed on 08/09/2024 at 5:39:23 PM Final us Deanna Santana MD CV ECHO PROCEDURES Final Res ult [facility] from Last 3 Months or Most Recently Relevant to Health Maintenance Insurance [employer]ARE Care Teams Risk Assessment Consultant Relationship Specialty Start Date End Date Adam Wylie DO [address] [place] [address] PCP - General Internal Medicine 10/13/23 Juliette Perla, residential glazierInsurance Plan Specialist 01/09/25
--- OUTSIDE RECORDS SUMMARY | 2025-01-30 12:16 | XMS_ITS | Encounter Summary ---
Author Organization [facility] Address [address] [place] [id number] Phone Care Team Providers Care Rn Neurosurgical Name Role Phone Adam Wylie DO Primary Care Provider [phone] Adam Wylie DO Primary Care Provider Juliette Perla RN Unavailable Unavailable Encounter Details Date Type Department Care Team (Late st Contact Info) Description 09/02/2022 Orders Only [email or web address] LEGACY [id number] [place] [address] Conversion, Onbase Social History Tobacco Use Types [...] Info) Description 02/18/2025 10:45 AM EDT Appointment [address] [place] [address] 06/11/2025 11:00 AM EST Office Visit [address] [place] [address] Shannon Santana MD 703 [facility] 2, [address] [address] Scheduled Orders Name Type Priority Associated Diagnoses Orde r Schedule OUTSIDE LAB SCAN Lab Ordered: 09/02/2022 documented as of this encounter Visit Diagnoses Not on filedocumented in this encounter Care Teams Rn Neurosurgical Relationship Specialty Start Date End Date Adam Wylie DO PCP - General 12/21/18 10/12/23 Adam Wylie DO [address] [place] [address] PCP - General Internal Medicine 10/13/23 Juliette Perla, shipping checkerTurf Farm Worker 01/09/25 documented as of this encounter
--- OUTSIDE RECORDS SUMMARY | 2025-01-30 12:16 | XMS_ITS | Encounter Summary ---
Author Organization [facility] Address [address] [place] [address] Phone Care Team Providers Care Doll Wig Maker Rooted Hair Name Role Phone Adam Wylie Primary Care Provider [phone] Juliette Perla RN Unavailable Unavailable Encounter Details Date Type Department Care Team (Late st Contact Info) Description 01/09/2025 Scanned Document [facility] [address] [place] [phone] Scanning, Generic Provider Social History Tobacco Use [...] Info) Description 02/18/2025 10:45 AM EDT Appointment [place] [address] [place] [phone] 06/11/2025 11:00 AM EST Office Visit [address] [place] [address] Shannon Santana MD 703 [facility] 2, [address] [address] documented as of this encounter Visit Diagnoses Not on filedocumented in this encounter Additional Health Concerns Assessment Noted Time A fall risk assessment has been complete d for the patient 10/31/2024 11:24 AM EDT documented as of this encounter Care Teams Doll Wig Maker Rooted Hair Relationship Specialty Start Date End Date Adam Wylie DO [address] [place] [place] [address] PCP - General Internal Medicine 10/13/23 Juliette Perla, observation assistantParts Salvager 01/09/25 documented as of this encounter
--- OUTSIDE RECORDS SUMMARY | 2025-01-30 12:16 | XMS_ITS | Encounter Summary ---
Author Organization [facility] Address [address] [place] [address] Phone Care Team Providers Care Superintendent System Operation Name Role Phone Adam Wylie Primary Care Provider [phone] Juliette Perla RN Unavailable Unavailable Encounter Details Date Type Department Care Team (Late st Contact Info) Description 01/05/2025 Scanned Document [facility] [address] [place] [phone] Scanning, Generic Provider Social History Tobacco Use [...] Info) Description 02/18/2025 10:45 AM EDT Appointment [place] [address] [place] [address] 06/11/2025 11:00 AM EST Office Visit [address] [place] [address] Shannon Santana MD 703 [facility] 2, [address] [address] documented as of this encounter Visit Diagnoses Not on filedocumented in this encounter Additional Health Concerns Assessment Noted Time A fall risk assessment has been complete d for the patient 10/31/2024 11:24 AM EDT documented as of this encounter Care Teams Superintendent System Operation Relationship Specialty Start Date End Date Adam Wylie DO [address] [place] [place] [address] PCP - General Internal Medicine 10/13/23 Juliette Perla, geothermal field technicianRack Puller 01/09/25 documented as of this encounter
--- OUTSIDE RECORDS SUMMARY | 2025-01-30 12:16 | XMS_ITS | Encounter Summary ---
Author Organization [facility] Address [address] [place] [address] Phone Care Team Providers Care Out And Out Cigar Maker Hand Name Role Phone Adam Wylie DO Primary Care Provider [phone] Juliette Perla RN Unavailable Unavailable Encounter Details Date Type Department Care Team (Late st Contact Info) Description 07/05/2024 Scanned Document [facility] [address] [place] [address] Scanning, Generic Provider Social History Tobacco Use Types Packs/Day Years Used Date Smoking Tobacco: Never Smokeless Tobacco: Current Chew Alcohol Use Standard Drinks/Week Comments Not Currently 0 (1 standard drink = 0.6 oz [...] suspected to have Coronavirus/COVID-19? No / Unsure 06/12/2024 12:27 PM EST documented as of this encounter Plan of Treatment Upcoming Encounters Date Type Department Care Team (Late st Contact Info) Description 02/18/2025 10:45 AM EDT Appointment [place] [address] [place] [address] 06/11/2025 11:00 AM EST Office Visit [address] [place] [address] Shannon Santana MD 703 [facility] [address], [address] [place] [address] documented as of this encounter Visit Diagnoses Not on filedocumented in this encounter Additional Health Concerns Assessment Noted Time A fall risk assessment has been complete d for the patient 03/27/2024 3:28 PM EST documented as of this encounter Care Teams Out And Out Cigar Maker Hand Relationship Specialty Start Date End Date Adam Wylie DO [address] [place] [address] PCP - General Internal Medicine 10/13/23 Juliette Perla, power lineman technicianDirector Student Union 01/09/25 documented as of this encounter
--- OUTSIDE RECORDS SUMMARY | 2025-01-30 12:16 | XMS_ITS | Encounter Summary ---
Author Organization [facility] Address [address] [place] [address] Phone Care Team Providers Care Technology Instructor Name Role Phone Adam Wylie DO Primary Care Provider [phone] Juliette Perla RN Unavailable Unavailable Encounter Details Date Type Department Care Team (Late st Contact Info) Description 02/28/2024 Scanned Document [facility] [address] [place] [address] Scanning, Generic Provider Social History [...] Info) Description 02/18/2025 10:45 AM EDT Appointment [place] [place] [address] 06/11/2025 11:00 AM EST Office Visit [address] [place] [address] Shannon Santana MD [address] [employer] [address], [address] [place] [address] documented as of this encounter Visit Diagnoses Not on filedocumented in this encounter Additional Health Concerns Assessment Noted Time A fall risk assessment has been complete d for the patient 10/13/2023 1:35 PM EDT documented as of this encounter Care Teams Technology Instructor Relationship Specialty Start Date End Date Adam Wylie DO [address] [place] [address] PCP - General Internal Medicine 10/13/23 Juliette Perla, travel journalistPoultry Feed Supervisor 01/09/25 documented as of this encounter
--- OUTSIDE RECORDS SUMMARY | 2025-01-30 12:16 | XMS_ITS | Encounter Summary ---
Author Organization [facility] Address [address] [place] [address] Phone Care Team Providers Care Clerical Investigator Name Role Phone Adam Wylie DO Primary Care Provider [phone] Juliette Perla RN Unavailable Unavailable Encounter Details Date Type Department Care Team (Late st Contact Info) Description 07/03/2024 Scanned Document [facility] [address] [place] [address] Scanning, Generic Provider Social History [...] Info) Description 02/18/2025 10:45 AM EDT Appointment [place] [address] [place] [address] 06/11/2025 11:00 AM EST Office Visit [address] [place] [address] Shannon Santana MD 703 [facility] [address], [address] [place] [address] Scheduled Orders Name Type Priority Associated Diagnoses Orde r Schedule Ultrasound- OnBase Scan Imaging O rdered: 07/03/2024 documented as of this encounter Procedures Procedure Name Priority Date/Time Associated Diagnosis Comments OUTSIDE IMAGING SCAN 07/03/2024 documented in this encounter Results * OUTSIDE IMAGING SCAN (07/03/2024) Anatomical Region Laterality Modality Other Narrative 07/03/2024 Ordered by an unspecified provider. us Generic Provider Scanning OUTSIDE SCAN Final Result documented in this encounter Visit Diagnoses Not on filedocumented in this encounter Additional Health Concerns Assessment Noted Time A fall risk assessment has been complete d for the patient 03/27/2024 3:28 PM EST documented as of this encounter Care Teams Clerical Investigator Relationship Specialty Start Date End Date Adam Wylie DO [address] [place] [address] PCP - General Internal Medicine 10/13/23 Juliette Perla, 4th grade teacherHospice Clinical Marketer 01/09/25 documented as of this encounter
--- OUTSIDE RECORDS SUMMARY | 2025-01-30 12:16 | XMS_ITS | Encounter Summary ---
Author Organization [facility] Address [address] [place] [address] Phone Care Team Providers Care Underwriting Director Name Role Phone Adam Wylie DO Primary Care Provider [phone] Adam Wylie DO Primary Care Provider [phone] Juliette Perla RN Unavailable Unavailable Encounter Details Date Type Department Care Team (Late st Contact Info) Description 09/19/2023 Scanned Document [facility] [address] [place] [phone] Scanning, Generic Provider Social History Tobacco Use [...] Encounters Date Type Department Care Team (Late Contact Info) Description 02/18/2025 10:45 AM EDT Appointment [address] [place] [phone] 06/11/2025 11:00 AM EST Office Visit [address] [place] [address] Shannon Santana MD 703 [facility] [address], [address] [place] [address] documented as of this encounter Visit Diagnoses Not on filedocumented in this encounter Care Teams Underwriting Director Relationship Specialty Start Date End Date Adam Wylie DO PCP - General 12/21/18 10/12/23 Adam Wylie DO [address] [place] [address] PCP - General Internal Medicine 10/13/23 Juliette Perla, entry level machine operatorSpinning Machine Operator 01/09/25 documented as of this encounter
--- OUTSIDE RECORDS SUMMARY | 2025-01-30 12:16 | XMS_ITS | Encounter Summary ---
Author Organization [facility] Address [address] [place] [address] Phone Care Team Providers Care Cvicu Nurse Name Role Phone Adam Wylie Primary Care Provider [phone] Juliette Perla RN Unavailable Unavailable Encounter Details Date Type Department Care Team (Late st Contact Info) Description 01/06/2025 Scanned Document [facility] [address] [place] [phone] Scanning, Generic Provider Social History Tobacco Use [...] Info) Description 02/18/2025 10:45 AM EDT Appointment [place] [address] [place] [address] 06/11/2025 11:00 AM EST Office Visit [address] [place] [address] Shannon Santana MD 703 [facility] [address], [address] [address] documented as of this encounter Visit Diagnoses Not on filedocumented in this encounter Additional Health Concerns Assessment Noted Time A fall risk assessment has been complete d for the patient 10/31/2024 11:24 AM EDT documented as of this encounter Care Teams Cvicu Nurse Relationship Specialty Start Date End Date Adam Wylie DO [address] [place] [place] [address] PCP - General Internal Medicine 10/13/23 Juliette Perla, multi spindle operatorCoater Smoking Pipe 01/09/25 documented as of this encounter
--- OUTSIDE RECORDS SUMMARY | 2025-01-30 12:16 | XMS_ITS | Encounter Summary ---
Author Organization [facility] Address [address] [place] [address] Phone Care Team Providers Care Transit Manager Name Role Phone Adam Wylie DO Primary Care Provider [phone] Juliette Perla RN Unavailable Unavailable Encounter Details Date Type Department Care Team (Late st Contact Info) Description 07/09/2024 Scanned Document [facility] [address] [place] [address] Scanning, Generic Provider Social History [...] Info) Description 02/18/2025 10:45 AM EDT Appointment [place] [address] [place] [address] 06/11/2025 11:00 AM EST Office Visit [address] [place] [address] Shannon Santana MD 703 [facility] [address], [address] [place] [address] documented as of this encounter Visit Diagnoses Not on filedocumented in this encounter Additional Health Concerns Assessment Noted Time A fall risk assessment has been complete d for the patient 03/27/2024 3:28 PM EST documented as of this encounter Care Teams Transit Manager Relationship Specialty Start Date End Date Adam Wylie DO [address] [place] [address] PCP - General Internal Medicine 10/13/23 Juliette Perla, backup administrative coordinatorProvider Education Specialist 01/09/25 documented as of this encounter
--- OUTSIDE RECORDS SUMMARY | 2025-01-30 12:16 | XMS_ITS | Encounter Summary ---
Author Organization [facility] Address [address] [place] [address] Phone Care Team Providers Care Automatic Wheel Line Operator Name Role Phone Adam Wylie DO Primary Care Provider [phone] Juliette Perla RN Unavailable Unavailable Encounter Details Date Type Department Care Team (Late st Contact Info) Description 07/06/2024 Scanned Document [facility] [address] [place] [address] Scanning, Generic Provider Social History [...] Info) Description 02/18/2025 10:45 AM EDT Appointment [place] [address] [place] [address] 06/11/2025 11:00 AM EST Office Visit [address] [place] [address] Shannon Santana MD 703 [facility] [address] [place] [address] documented as of this encounter Visit Diagnoses Not on filedocumented in this encounter Additional Health Concerns Assessment Noted Time A fall risk assessment has been complete d for the patient 03/27/2024 3:28 PM EST documented as of this encounter Care Teams Automatic Wheel Line Operator Relationship Specialty Start Date End Date Adam Wylie DO [address] [place] [address] PCP - General Internal Medicine 10/13/23 Juliette Perla, display carverSaw Sharpener 01/09/25 documented as of this encounter
--- OUTSIDE RECORDS SUMMARY | 2025-01-30 12:16 | XMS_ITS | Encounter Summary ---
Author Organization [facility] Address [address] [place] [address] Phone Care Team Providers Care Quiller Hand Name Role Phone Adam Wylie DO Primary Care Provider [phone] Juliette Perla RN Unavailable Unavailable Encounter Details Date Type Department Care Team (Late st Contact Info) Description 02/29/2024 Scanned Document [facility] [address] [place] [address] Scanning, Generic Provider Social History [...] Info) Description 02/18/2025 10:45 AM EDT Appointment [place] [address] [place] [address] 06/11/2025 11:00 AM EST Office Visit [address] [place] [address] Shannon Santana MD 703 [facility] [address] [place] [address] documented as of this encounter Procedures Procedure Name Priority Date/Time Associated Diagnosis Comments ECHOCARDIOGRAM 02/29/2024 documented in this encounter Results * Echocardiogram (02/29/2024) Narrative 02/29/2024 Ordered by an unspecified provider. us Generic Provider Scanning CV ECHO PROCEDURES Fin al Result documented in this encounter Visit Diagnoses Not on filedocumented in this encounter Additional Health Concerns Assessment Noted Time A fall risk assessment has been complete d for the patient 10/13/2023 1:35 PM EDT documented as of this encounter Care Teams Quiller Hand Relationship Specialty Start Date End Date Adam Wylie DO [address] [place] [address] PCP - General Internal Medicine 10/13/23 Juliette Perla, automatic door mechanicMachine Preservative Filler 01/09/25 documented as of this encounter
--- OUTSIDE RECORDS SUMMARY | 2025-01-30 12:16 | XMS_ITS | Encounter Summary ---
Author Organization [facility] Address [address] [place] [address] Phone Care Team Providers Care Manager Embalmer Funeral Director Name Role Phone Adam Wylie Primary Care Provider [phone] Juliette Perla RN Unavailable Unavailable Encounter Details Date Type Department Care Team (Late st Contact Info) Description 01/07/2025 Scanned Document [facility] [address] [place] [phone] Scanning, Generic Provider Social History Tobacco Use [...] Info) Description 02/18/2025 10:45 AM EDT Appointment [place] [address] [place] [address] 06/11/2025 11:00 AM EST Office Visit [address] [place] [address] Shannon Santana MD 703 [facility] 2, [address] [address] documented as of this encounter Visit Diagnoses Not on filedocumented in this encounter Additional Health Concerns Assessment Noted Time A fall risk assessment has been complete d for the patient 10/31/2024 11:24 AM EDT documented as of this encounter Care Teams Manager Embalmer Funeral Director Relationship Specialty Start Date End Date Adam Wylie DO [address] [place] [address] PCP - General Internal Medicine 10/13/23 Juliette Perla, electronics technology instructorTranslational Specialist 01/09/25 documented as of this encounter
--- OUTSIDE RECORDS SUMMARY | 2025-01-30 12:23 | XMS_ITS | CCD ---
Author Organization [facility] Care Team Providers Care Plastics Worker Name Role Phone Adam Del Valle Unavailable Unavailable Unavailable ADAM DEL VALLE Primary Care Physician [phone] DO Adam Del Valle Primary Care Provider [phone] DO Gregg Hilliard Attending Provider [phone] Nick Muniz Unavailable Gregg Hilliard Unavailable Adam Del Valle Unavailable DR ADAM DEL VALLE Admitting Unavailable BALL, DR REICH Primary Care [...] Provider MD Kimani Wolfe Other Provider Bailee [facility] Karina Galvan Other Provider DO Sin [...] Provider MD Kimani Wolfe Other Provider Bailee [facility] Karina Galvan Other Provider DO Sin Mabry Emergency Provider MD Altaf Jones Attending Provider MD Gabriela Nobles Admit Provider DO Eriberto Stover Other Provider MD Ijeoma Alvares Other Provider MD Hasmukh Mace Other Provider CHARLEY Keita Other Provider DO Freddie Reid Jr Other Provider MD Gutierrez Jo Other Provider MD Baudilio Moura Other Provider Adam Del Valle DO Primary Care Provider Silvano Reed DO Admit Provider Silvano Reed DO Attending Provider Clyde RUBIO, Ramonita Other Provider Unavailable Judith Rodriguez DO Other Provider Esther SALMON, Shannon Other Provider Dia SALMON, Steven Tinoco Other Provider Heike SALMON, Chacho Other Provider Leroy SALMON, Casey Other Provider Ning Godoy APRN Other Provider Cheli Wood MD Other Provider Carlos SALMON, Damien Moreno Other Provider Aiden SALMON, Kimani Other Provider Bailee [facility], Karina Galvan Other Provider Sin Mabry DO Emergency Provider [phone] Robert SALMON, Altaf Attending Provider Giuliano SALMON, Gabriela Admit Provider Eriberto Stover DO Other Provider Dia SALMON, Ijeoma Other Provider Rodri SALMON, Hasmukh Other Provider Nuvia Keita APRN Other Provider BelFreddie graff DO Other Provider Deysi SALMON, Gutierrez Rodriguez Other Provider Martell SALMON, Baudilio Francisco Other Provider Adam Del Valle DO Attending Provider Adam Del Valle DO Primary Care Provider Robert SALMON, Altaf Attending Provider [phone] Shannon Gonzalez MD Referring Provider Adam Del Valle DO Primary Care Provider Susanne Motley MD Emergency Provider Altaf Jones MD Admit Provider [phone] Altaf Jones MD Attending Provider Shannon Gonzalez MD Other Provider Unavailable Primary Care Provider Unavailabl e Clinton NROMAN Attending Unavailable Clinton NORMAN R Attending Unavailable Clinton NORMAN Attending Unavailable Clinton NORMAN R Admitting Unavailable Clinton NORMAN Attending Unavailable Clinton NORMAN Attending Unavailable Adam Del Valle DO Primary Care Provider Susanne Motley MD Emergency Provider Altaf Jones MD Admit Provider Altaf Jones MD Attending Provider [phone] Shannon Gonzalez MD Other Provider Adam Del Valle DO Primary Care Provider Adam Del Valle DO Attending Provider Hasmukh Vides DO Emergency Provider Derek , Silvano Admit Provider [phone] Silvano Reed DO Attending Provider Hoang Conner DO Attending Provider Juliette Davis CMA Attending Provider Unavailapoorva karlos Ivon KING Adam Primary Care Provider Ivon Adam Attending Provider Ruthann SALMON, Josue Diaz Attending Provider Chonestoravtar Fausto KINGal Monica Emergency Provider [phone] Horacio SALMON, Elsie Admit Provider Horacio SALMON, Elsie Attending Provider [phone] Jostin Larose DO Attending Provider Pan RUBIO, Juliette Unavailable Unavailable Ning Godoy APRN Attending Provider Flavio SALMON, Nick Bird Attending Provider [phone] Altaf Jones Admitting Unavailable [facility] Primary Care Unavailable Esther, Ortega Consulting Unavailable Altaf Jones Attending Unavailable Silvano Reed Admitting UnavailRamonita Barnett Consulting Unavailable [facility] Primary Care Unavailable Altaf Jones Attending Unavailable Judith Rodriguez Consulting Unavailable Gonzalez, Ortega Consulting Unavailable Steven Alvares Consulting Unavail able Chacho Burroughs Consulting Unavailable Casey Harper Consulting Unavailab Ning Velarde Consulting Unavailable Cheli Wood Consulting Unavailable Damien Gonzalez Consulting Unavailab Kimani Lebron Consulting Unavailable Karina Morocho Consulting Unavailable Gabriela Nobles Admitting Unavailable [facility] Primary Care Unavailable Eriberto Stover Consulting Unavailable Gonzalez, Ortega Referring Unavailable Altaf Jones Attending Unavailable Ijeoma Alvares Consulting Unavailable Hasmukh Mace Consulting Unavailable Nuvia Keita Consulting Unavailable Freddie Reid Jr Consulting UnavailGutierrez Martinez Consulting Unavaila Baudilio Degroot Consulting Unavailwade e Ramonita Tang Consulting Unavailable Ivon Adam Primary Care Unavailable Jostin Larose Attending Unavailable Elsie Leonard Admitting Unavailable Ramonita Tang Consulting Unavailable Judith Rodriguez Consulting Unavailable Shannon Gonzalez Consulting Unavailable Chacho Burroughs Consulting Unavailable Ning Godoy Consulting Unavailable Cheli Wood Consulting Unavailable Kimani Wolfe Consulting Unavailable Karina Morocho Consulting Unavailable Silvano Reed Admitting Unavailabl e Ivon Adam Primary Care Unavailable Hoang Conner Attending Unavailable Silvano Reed Attending Unavailabl Silvano Camacho Admitting Unavailabl e Ramonita Tang Consulting Unavailable Ivon, Adam Primary Care Unavailable Judith Rodriguez Consulting Unavailable Esther, Shannon Consulting Unavailable Steven Alvares Consulting Unavail able Chacho Burroughs Consulting Unavailable Casey Harper Consulting Unavailab Ning Velarde Consulting Unavailable Cheli Wood Consulting Unavailable Damien Gonzalez Consulting Unavailab le Aiden, Kimani Consulting Unavailable Karina Morocho Consulting Unavailable Ivon Adam Admitting Unavailable Ivon, Adam Attending Unavailable Ivon, Adam Primary Care Unavailable Ivon, Adam Primary Care Unavailable Josue Beavers Attending Unavailable Josue Beavers Admitting Unavailable NING GODOY Attending Unavailable IVON ADAM E Primary Care Unavailable NING GODOY Referring Unavailable IVON ADAM E Primary Care Unavailable SHANNON GONZALEZ Referring Unavailable IVON ADAM E Primary Care Unavailable SHANNON GONZALEZ Attending Unavailable IVON ADAM E Primary Care Unavailable SHANNON GONZALEZ Referring Unavailable SHANNON GONZALEZ M Attending Unavailable SHANNON GONZALEZ M Referring Unavailable IVON ADAM E Primary Care Unavailable NING GODOY Referring Unavailable IVON ADAM E Primary Care Unavailable GONZALEZSHANNON Referring Unavailable IVON, ADAM E Primary Care Unavailable GONZALEZSHANNON M Attending Unavailable SHANNON GONZALEZ M Referring Unavailable IVON, ADAM E Primary Care Unavailable NING GODOY Referring Unavailable IVON, ADAM E Primary Care Unavailable SHANNON GONZALEZ Referring Unavailable IVON, ADAM E Primary Care Unavailable GONZALEZSHANNON M Referring Unavailable IVON, ADAM E Primary Care Unavailable Allergies Allergy Classification Reported Allergen(s) Allergy Type Date of Onset Reaction(s) Facility (1 source) patient allergy list reviewed by nurse or physicia Propensity to adverse reactions Comment:Done [facility] Other (1 source) ALLERGIES NOT ON FILE; Translations: [ALLERGIES NOT ON FILE] Propensity to adverse reactions (disorder) [facility] Rep[facility] Medications Current Medications Medication Drug Class(es) Dates Sig (Normalized) Sig (Original) Advair Diskus 500-50 MCG/DOSE (5 sources) Start: 07-09-2018 take 1 puff(s) by inhalation twice daily Advair Diskus 500-50 MCG/DOSE 1 puff Inhalation Twice a day for 90 days Jun, Active [id number] 200 actuat albuterol 0.09 mg/actuat metered dose inhaler (20 sources) beta2-Adrenergic Agonist Start: 01-21-2025 take 1 puff(s) by inhalation every six hours as needed Albuterol Sulfate 90 mcg/actuation HFA aerosol inhaler Active 1 PUFF INHALATION Every 6 hours as needed January 21, 2025 12:00am Complies with drug therapy Start: 10-23-2023 End: 07-09-2024 take 2 puff(s) [...] 11, 2018 1:00am October 23, 2023 3:25pm albuterol 0.833 mg/ml / ipratropium bromide 0.167 mg/ml inhalation solution (20 sources) Anticholinergic, beta2-Adrenergic Agonist Start: 01-30-2024 End: 01-02-2025 take 1 mL by inhalation four times daily as needed Ipratropium-Albuterol 0.5 mg-3 mg(2.5 mg base)/3 mL [...] daily Aspirin 81 mg Tablet,Delayed Release (Dr/Ec) Active 81 MG PO Daily January 09, 2025 12:00am Complies with drug therapy Start: 03-20-2024 End: 10-31-2024 take 1 tablet [...] 03/20/2024 Active dapagliflozin 10 mg oral tablet (5 sources) Sodium-Glucose Cotransporter 2 Inhibitor Start: 01-09-2025 take 1 tablet by mouth once daily Dapagliflozin Propanediol 10 mg Tablet Active 10 MG PO Daily January 09, 2025 12:00am Complies with drug therapy take 1 tablet by melissa th every [...] capsule 3 01/25/2025 5:37 PM EDT 08/12/2024 08/12/2025 Active Start: 08-05-2024 dofetilide 250 mcg oral capsule 250 mcg = 1 cap(s), Refills(s) 0 Start Date: 08/05/24 Status: Ordered Repeat number: 1 Start: 07-09-2024 End: 11-11-2024 take 1 capsule by mouth twice daily Dofetilide 125 mcg Capsule Discontinued 125 MCG PO Twice daily 0 July 09, 2024 1:00am November 11, [...] daily. 02/17/2020 Active fluticasone 0.05 mg/inh Nasal Spraggs (2 sources) Start: 09-11-2019 fluticasone 0. 05 mg/inh Nasal Spraggs Nasal, Daily, Refill(s) 0 Start Date: 09/11/19 Status: Ordered furosemide 20 mg oral tablet (20 sources) Loop Diuretic Start: 01-09-2025 End: 01-16-2025 take 1 tablet by mouth once daily as needed for edema Furosemide 40 mg tablet Active 40 MG PO Daily as needed for edema 30 30 Vanessa 4th, 2025 8:35pm Complies with drug therapy Start: 06-03-2024 take 1 tablet by melissa th twice daily Furosemide 20 mg tablet Active 20 MG PO Twice daily June 03, 2024 1:00am Complies with drug therapy Start: 03-19-2024 End: 04-02-2024 take 1 tablet by mouth twice daily Furosemide 20 mg Tablet Discontinued 20 MG PO BID@0800,1600 90 March 19, 2024 1:00am April 02, 2024 1:34pm Start: 08-09-2021 End: 01-17-2026 take 1 tablet by mouth once daily furosemide (Lasix) 20 mg tablet Indications: Non-ischemic cardiomyopathy (Multi) Take 1 tablet (20 mg) by mouth once daily. 01/17/2025 01/17/2026 Active Start: 05-13-2018 End: 02-10-2019 take 1 [...] mg by inhalation four times daily Ipratropium Tremont 0.02 % solution Discontinued 0.5 MG INHALATION Four times daily 300 January 29, 2024 8:52am January 29, 2024 12:51pm Start: 10-12-2023 End: 01-29-2024 take 0.5 mg by inhalation four times daily Ipratropium Tremont Discontinued 0.5 MG INHALATION Four times daily 300 January 29, 2024 7:52am January 29, 2024 11:51am Start: 08-16-2022 take 1 [IU] by inhal ation four times daily Ipratropium Tremont 0.02 % 1 unit dose Inhalation four times a day DX J44.9 COPD for 30 days Aug, Active Start: 08-16-2022 take 1 [IU] by inhal ation four times daily Ipratropium Tremont 0.02 % 1 unit dose Inhalation four [...] Active magnesium hydroxide 80 mg/ml oral suspension (11 sources) Start: 07-09-2024 End: 01-02-2025 magnesium hydroxide [...] 03/27/2025 Active menthol 0.04 mg/mg topical gel (11 sources) Start: 07-12-2024 End: 01-05-2025 menthol (Biofreeze, [...] 05/24/2024 05/24/2025 Active multivitamin (Multiple Vitamins) tablet (15 sources) Start: 12-15-2016 take 1 tablet by mouth once daily multivitamin (Multiple Vitamins) tablet Take 1 tablet by mouth once daily. 12/15/2016 Active Multivitamin With Minerals (1 source) Start: 03-19-2024 take 1 capsule by mouth once daily Multivitamin With Minerals Active 1 CAP PO Daily March 19, 2024 12:00am Multivitamin With Minerals capsule (14 sources) Start: 03-19-2024 take 1 capsule by mouth once daily Start: 03-19-2024 take 1 capsule by mo ut once daily Multivitamin With Minerals capsule Active 1 CAP PO Daily March 19, 2024 1:00am Complies with drug therapy Start: 03-19-2024 take 1 capsule by mo uth once daily Multivitamin With Minerals capsule Active 1 CAP PO Daily March 19, 2024 1:00am Start: 03-19-2024 take 1 capsule by mo uth once daily Multivitamin With Minerals capsule Active 1 CAP PO Daily March 19, 2024 12:00am ofloxacin 3 mg/ml ophthalmic solution (2 sources) Quinolone Antimicrobial Start: 01-05-2025 Ofloxa catrachito 0.3 [...] 11:00pm 2 liters at HS and napping [facility] Start: 10-23-2023 Oxygen Active 0 .Route October 23, 2023 12:00am 2 liters at HS and napping [facility] Start: 10-23-2023 Oxygen Active 0 .ROUTE October 23, 2023 12:00am 2 liters at HS and napping [facility] Oxygen 2 liters pm and prn d ay (9 sources) Oxygen 2 liters pm and prn day at night and during the day prn Active Oxygen unit (14 sources) Start: 10-23-2023 Oxygen unit Ac tive 0 .Route October 23, 2023 12:00am 2 liters at HS and napping [facility] Start: 10-23-2023 Oxygen unit Ac tive 0 .Route October 22, 2023 11:00pm 2 liters at HS and napping [facility] pantoprazole 40 mg delayed release [...] prior to BREAKFAST Start: 08-14-2023 End: 02-18-2024 take 1 tablet by mouth once daily before breakfast Pantoprazole 40 mg Tablet,Delayed Release (Dr/Ec) Active 40 MG PO Daily before breakfast July 09, 2024 1:00am Complies with drug therapy Start: 03-01-2023 Pantoprazole S odium 40 MG [...] chew, or split. 03/27/2024 Discontinued (Dose adjustment) microencapsulated potassium chloride 20 meq extended release oral tablet (20 sources) Start: 01-23-2025 End: 01-23-2026 take 1 tablet by mouth once daily in the evening potassium chloride CR (Klor-Con M20) 20 mEq ER tablet Indications: Non-ischemic cardiomyopathy (Multi) Take 1 tablet (20 mEq) by mouth once daily. Do not crush or chew. 90 tablet 3 01/23/2025 3:40 PM EDT 01/23/2025 01/23/2026 Active Start: 08-05-2024 Potassium Chlo ride (Wfr-Ydsx-Twr 10) 10 mEq oral tablet, extended release 10 mEq = 1 tab(s), Refills(s) 0 Start Date: 08/05/24 Status: Ordered Repeat number: 1 Start: 03-27-2024 End: 11-19-2024 Potassium Chloride (Klor-Con 10) 10 mEq tablet extended release Active 10 MEQ PO Daily November 19, 2024 12:13pm Complies with drug therapy prednisoLONE acetate 10 mg/ml ophthalmic suspension (6 sources) Corticosteroid Start: 11-11-2024 take 1 drop(s) into the eye(s) four times daily Prednisolone Acetate 1 % drops,suspension Active 1 DROPS EYE-LEFT Four times daily November 11, 2024 12:00am Complies with drug therapy predniSONE 10 mg oral tablet (20 sources) Start: 01-09-2025 Prednisone 10 mg tablet Active 10 MG PO As Directed January 09, 2025 12:00am Take 4 pills for 4 days Take 3 pills for 4 days Take 2 pills for 4 days Take 1 pill for 4 days then stop Complies with drug therapy Start: 11-12-2024 End: 01-02-2025 Prednisone 10 mg tablet Disc ontinued 10 MG PO Daily 39 November 12, 2024 12:00am January 02, 2025 [...] sources) Factor Xa Inhibitor Start: 02-04-2024 End: 04-22-2025 take 1 tablet by mouth once daily at mealtime rivaroxaban (Xarelto) 20 mg tablet Indications: Atrial fibrillation, unspecified type (Multi) Take 1 tablet (20 mg) by mouth once daily in the evening. Take with meals. 90 tablet 3 01/22/2025 3:06 PM EDT 03/22/2024 04/22/2025 Active sacubitril 24 mg / valsartan 26 [...] a day Active spironolactone 25 mg oral tablet (5 sources) Aldosterone Antagonist Start: 01-09-2025 Spironolactone 25 mg Tablet Active 12.5 MG PO Daily January 09, 2025 12:00am Complies with drug therapy take 0.5 tablet by mouth once da [...] Ac tive valACYclovir 1000 mg oral tablet (7 sources) Herpesvirus Nucleoside Analog DNA Polymerase Inhibitor, [...] by mouth 2 times a day. Active Ventolin HFA 90 mcg/inh Aerosol-Adpt (2 sources) Start: 08-14-2023 Ventolin HFA 9 0 mcg/inh Aerosol-Adpt Refill(s) 0 Start Date: 08/14/23 Status: Ordered Repeat number: 1 Start: 08-14-2023 Ventolin HFA 9 0 mcg/inh Aerosol-Adpt Refill(s) 0 Start Date: 08/14/23 Status: Ordered Completed/Discontinued Medications Medication Drug Class(es) Dates Sig (Normalized) Sig (Original) acetaminophen 500 mg oral tablet (20 sources) Start: 08-05-2024 take 2 tablets by [...] 09, 2024 1:00am November 11, 2024 4:46pm amiodarone hydrochloride 200 mg oral tablet (20 [...] Tablet Discontinued 400 MG PO Twice daily 28 March 01, 2024 12:00am March 20, 2024 1:50pm Start: 03-01-2024 End: 03-20-2024 take 400 mg by mouth twice daily Amiodarone Discontinued 400 MG PO Twice daily 28 February 29, 2024 11:00pm March 20, 2024 12:50pm Start: 03-01-2024 End: 03-20-2024 take 400 mg by mouth twice daily Amiodarone Discontinued 200 MG PO Twice daily 60 February 29, 2024 11:00pm March 20, 2024 [...] daily as needed for muscle spasm 28 March 08, 2024 12:00am March 25, 2024 3:54pm [...] 2018 2:03pm cefpodoxime 200 mg oral tablet (6 sources) Cephalosporin Antibacterial Start: 11-12-2024 End: 01-02-2025 take 1 tablet by mouth twice daily at mealtime Cefpodoxime 200 mg tablet Discontinued 200 MG PO Twice daily 6 3 November 12, 2024 12:00am January 02, 2025 3:05pm must administer with a meal/food cephalexin 500 mg oral capsule (20 sources) Cephalosporin Antibacterial Start: 07-06-2018 End: 02-10-2019 take 1 capsule by mouth twice daily Cephalexin 500 mg capsule Discontinued 500 MG PO Twice daily 10 5 July 06, 2018 1:00am February 10, 2019 12:10am fluticasone propionate 0.05 mg/actuat metered dose nasal spray (20 sources) Corticosteroid Start: 09-08-2023 End: 10-31-2024 Fluticasone Propionate 50 mcg/actuation spray,suspension Discontinued 1 SPRAY INTRANASAL Daily September 08, 2023 12:00am July 09, 2024 11:25am Start: 09-11-2019 fluticasone 0. 05 mg/inh Nasal Spraggs Nasal, Daily, Refill(s) 0 Start Date: 09/11/19 Status: Ordered Start: 05-11-2018 End: 02-10-2019 Fluticasone Propionate 50 mcg/actuation Spraggs,Suspension Discontinued 1 SPRAY INTRANASAL Daily May 11, [...] 11, 2018 1:00am May 13, 2018 2:03pm Hfzohzngnqb-Urniguwop-Snrxhy er (20 sources) Start: 10-23-2023 End: 01-02-2025 Hxktqjioymk-Ngevvmfrj-Bqiofv er (Trelegy Ellipta) 200-62.5-25 mcg blister with [...] October 23, 2023 12:00am Rinse after use hccenhqzees-xgsxuwmnr-newlok er (TRELEGY-ELLIPTA) 200-62.5-25 mcg blister with device (11 sources) Start: 10-23-2023 End: 01-15-2025 elkaoxjjpmu-cvtzfhwez-ngdige er (TRELEGY-ELLIPTA) 200-62.5-25 mcg blister with device Nteoiuqhsgt-Bmhdonkej-Izxeboct (Trelegy Ellipta) 200-62.5-25 mcg blister with device Active 1 INH INHALATION Daily 180 October 22, 2023 11:00pm Rinse after use 10/23/2023 01/15/2025 Discontinued (Therapy completed) Start: 10-23-2023 fluticasone-um eclidin-vilanter (TRELEGY-ELLIPTA) 200-62.5-25 mcg blister with device Agadqgktapo-Zuqwxrjon-Ppbyigdj (Trelegy Ellipta) 200-62.5-25 mcg blister with device Active 1 INH INHALATION Daily 180 October 22, 2023 11:00pm Rinse after use 10/23/2023 Active gadoterate meglumine (Dotarem) 0.5 mmol/mL contrast injection 25 mL (1 source) Start: 01-28-2025 End: 01-28-2025 inject 25 mL intravenously once 25 mL, intravenous, Once in imaging, Starting on Mon01/28/25 at 1007, For 1 dose, Administer undiluted as rapid I.V. bolus injection 12 hr guaiFENesin 600 mg extended release oral tablet (6 sources) Start: 11-12-2024 End: 01-02-2025 take 1 [...] tablet,delayed release (DR/EC) Discontinued 0 .ROUTE .COMPLEX 90 February 18, 2024 7:41pm July 09, 2024 [...] 1 capsule by inhalation once daily Tiotropium Tremont (Spiriva With Handihaler) 18 mcg Capsule, W/Inhalation Device Discontinued 1 CAP INHALATION Daily May 11, 2018 1:00am September 08, 2023 3:46pm valsartan 40 mg oral tablet (20 sources) Angiotensin 2 Receptor Abisai Start: 01-09-2025 End: 01-16-2025 take 1 tablet by mouth once daily Valsartan 40 mg Tablet Discontinued 40 MG PO Daily January 09, 2025 12:00am January 16, 2025 8:34pm Start: 05-17-2024 End: 07-09-2024 Valsartan 40 mg tablet Disco ntinued 20 MG PO Daily May 17, 2024 12:32pm July 09, 2024 11:25am On Hold: None Start: 04-30-2024 End: 05-17-2024 Valsartan 40 mg tablet Disco ntinued 20 MG PO Twice daily May 06, 2024 2:28pm May 17, 2024 12:33pm Problems Active Problems Problem Classification Problem Date Documented Da te Episodic/Chronic Abdominal hernia (9 sources) Hiatal hernia; Translations: [Diaphragmatic hernia without obstruction or gangrene] Episodic Acute myocardial infarction (10 sources) Myocardial infarction; Translations: [Non-ST elevation (NSTEMI) [...] aortic root dilatation 4.0 cm - 02/2024 Echo: LVEF 25% - 01/14 015,Echo: LVEF 58% - 08/2015,Echo: LVEF 45-50%, normal RV size/function, mild aortic root dilatation 4.0 cm - 02/2024,Echo: LVEF 50% - 07/2024,Echo: LVEF 45-50%, LAE, LVH, normal RV size/function - 12/2024, Echo: apical balooning w/ LVEF 25-30% - 12/2024 Coronary atherosclerosis and other heart disease (1 source) History of non-ST segment elevation myocardial infarction; Translations: [Old myocardial infarction] 01-19-2025 Chronic Deficiency and other anemia (2 sources) [...] hip] Chronic Other aftercare (4 sources) Other audio visual engineer (current) drug therapy; Translations: [OTH PENITENTIARY CURRENT DRUG THERAPY] Onset: 3 Episodic Other aftercare (1 source) Long-term current use of drug therapy; Translations: [Other audio visual engineer (current) drug therapy] Episodic Other aftercare (20 sources) Drug therapy finding; Translations: [intermediate (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] 02-04-2024 Episodic Other aftercare (12 sources) intermediate (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; Translations: [Long-term (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] Onset: 4 02-04-2024 Episodic Other aftercare (4 sources) Long-term current use of anticoagulant; Translations: [intermediate (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] Onset: 5 01-15-2025 [...] 03-20-2024 Chronic Other and ill-defined heart disease (7 sources) Mild left ventricular systolic dysfunction; Translations: [Other ill-defined heart diseases] 03-28-2024 Chronic Other and ill-defined heart disease (8 sources) Takotsubo cardiomyopathy; Translations: [Takotsubo syndrome] Onset: 5 01-08-2025 Chronic Other and ill-defined heart disease (4 sources) Left ventricular cardiac dysfunction; Translations: [Heart disease, unspecified] Onset: 5 01-16-2025 Chronic Other and ill-defined heart disease (3 sources) Takotsubo syndrome; Translations: [Takotsubo syndrome] Onset: 5 Chronic Other and ill-defined heart disease (4 sources) Intracardiac thrombosis, not elsewhere classified; Translations: [Intracardiac thrombosis, not elsewhere classified] Onset: 4 Chronic Other and unspecified benign neoplasm (20 [...] Other endocrine disorders (1 source) Hypercortisolism; 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 Other fractures (11 sources) Compression fracture of thoracic spine; Translations: [...] Onset: 5 07-21-2024 Episodic Other hematologic conditions (6 sources) H/O: Disorder; Translations: [Personal history of [...] abnormality, unspecified] Episodic Other lower respiratory disease (5 sources) Hypoxemia; Translations: [Hypoxemia] 11-19-2024 Episodic Other [...] Episodic Other nutritional; endocrine; and metabolic disorders (6 sources) Decreased body mass index; Translations: [Body [...] aortic root dilatation 4.0 cm - 02/2024 MRI: cardiac sarcoid osis - 2016,LHC: normal coronary circulation - 2016, Pneumonia (except that caused by tuberculosis or [...] of digestive system] Episodic Residual codes; unclassified (17 sources) Edema of lower extremity; Translations: [Localized edema] 02-29-2024 Episodic Residual codes; unclassified (16 sources) Altered mental status; Translations: [Altered mental status, unspecified] 05-01-2024 Episodic Residual codes; unclassified (4 sources) Chews tobacco ; Translations: [Tobacco use] [...] infarction, not elsewhere classified] Onset: 5 Unclassified (11 sources) A [facility] screening has identified you as FRAIL [...] Four Ways to Beat the Frailty Risk [email or web address] [email or web address] 07-09-2024 Unclassified (12 sources) Follow-up with your Primary Care Provider, call office to reschedule if needed. Unclassified (2 sources) You have been scheduled for a follow [...] Onset: 07-26-2023 02-10-2019 Episodic E Codes: Fall (16 sources) Fall; Translations: [Unspecified fall, initial encounter] [...] deformity of head] Resolved: 05-27-2020 Episodic Other aftercare (19 sources) Taking high risk medication; Translations: [Other halfway (current) drug therapy] Onset: 05-24-2024 03-27-2024 Episodic Other connective tissue disease (3 sources) [...] smoked tobacco; Translations: [Never a smoker] Unclassified (15 sources) Onset: 10-13-2023 Resolved: 01-15-2025 10-13-2023 Urinary tract infections (20 sources) Urinary tract infectious disease; Translations: [Urinary tract infection, site not specified] Onset: 08-14-2023 Episodic Results Test Name Value Interpretation Reference Range Facility MR CARDIAC MORPHOLOGY AND FU NCTION W AND WO IV CONTRASTon 01-28-2025 MR CARDIAC MORPHOLOGY AND FUNCTION W AND WO IV CONTRAST Interpreted By: Hoang Goff, STUDY: MR CARDIAC MORPHOLOGY AND FUNCTION W AND WO IV CONTRAST; 01/28/2025 12:02 pm INDICATION: Signs/Symptoms:cardiac sarcoidosis, increasing arrhythmia. This study is performed to assess myocardial viability and damage, and to quantitate left ventricular and valvular function. 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 ACCESSION NUMBER(S): [id number] ORDERING CLINICIAN: NING GODOY TECHNIQUE: Siemens1.5 Reina [...] Hoang Goff 01/29/2025 8:47 AM Dictation workstation: [id number] [facility] Basophils Auto (Bld) [#/Vol] Ordered By: Ning Godoy on 01-17-2025 Basophils (Bld) [#/Vol] 0.0 10 3/uL 0.0-0.1 [facility] Basophils/100 WBC Auto (Bld) Ordered By: Ning Godoy on 01-17-2025 Basophils/100 WBC (Bld) 0.1 % Low 0.2-2.0 [facility] Eosinophils/100 WBC Auto (Bl d)Ordered By: Ning Godoy on 01-17-2025 Eosinophils/100 WBC (Bld) 0.3 % Low 0.9-7.0 [facility] Erythrocyte distribution wid th Auto (RBC) [Ratio]Ordered By: Ning Godoy on 01-17-2025 Erythrocyte distribution width (RBC) [Ratio] 19.4 % High 11.0-15.0 [facility] Glomerular filtration rate ( GFR) estimation in non- AmericanOrdered By: Ning Godoy on 01-17-2025 GFR/1.73 sq M.predicted among non-blacks MDRD (S/P/Bld) [Vol rate/Area] mL/min/{1.73_m2} >=60 mL/min/1.7 3m 2 [facility] Hematocrit Auto (Bld) [Volum e fraction]Ordered By: Ning Godoy on 01-17-2025 Hematocrit (Bld) [Volume fraction] 33.4 % Low 42.0-54.0 [facility] Hemoglobin [Mass/volume] in BloodOrdered By: Ning Godoy on 01-17-2025 Hemoglobin (Bld) [Mass/Vol] 11.0 g/dL Low 14.0-18.0 [facility] Laboratory - Chemistry and C hemistry - challengeOrdered By: Ning Godoy on 01-17-2025 Calcium [Mass/Vol] 8.5 mg/dL 8.5-10.1 [facility] Chloride [Moles/Vol] 104 mmol/L 98-107 [facility] CO2 [Moles/Vol] 29.8 mmol/L 21.0-32.0 [facility] Creatinine [Mass/Vol] 1.15 mg/dL 0.70-1.30 [facility] GFR/1.73 sq M.predicted MDRD (S/P/Bld) [Vol rate/Area] mL/min/{1.73_m2} >=60 mL/min/1.7 3m 2 [facility] Glucose [Mass/Vol] 76 mg/dL 74-106 [facility] Magnesium [Mass/Vol] 1.9 mg/dL 1.8-2.4 [facility] Natriuretic peptide B (Bld) [Mass/Vol] 2617.0 pg/mL Critically high <=900.0 [facility] Comment on above: RESULTS CALLED TO PRATIMA TAYLOR LPN Potassium [Moles/Vol] 3.1 mmol/L Low 3.5-5.1 [facility] Sodium [Moles/Vol] 142 mmol/L 136-145 [facility] Urea nitrogen [Mass/Vol] 32.0 mg/dL High 7.0-18.0 [facility] Urea nitrogen/Creatinine [Mass ratio] 27.8 mg/mg [facility] Laboratory - Hematology and Cell countsOrdered By: Ning Godoy on 01-17-2025 Immature granulocytes/100 WBC (Bld) 1.6 % High 0.0-0.5 [facility] Leukocytes [#/volume] correc junior for nucleated erythrocytes in Blood by Automated counOrdered By: Ning Godoy on 01-17-2025 WBC corrected for nucl RBC Auto (Bld) [#/Vol] 17.9 10 3/uL High 4.0-11.0 [facility] Lymphocytes Auto (Bld) [#/Vo l]Ordered By: Ning Godoy on 01-17-2025 Lymphocytes (Bld) [#/Vol] 1.9 10 3/uL 1.2-3.8 [facility] Lymphocytes/100 WBC Auto (Bl d)Ordered By: Ning Godoy on 01-17-2025 Lymphocytes/100 WBC (Bld) 10.5 % Low 20.5-60.0 [facility] MCH Auto (RBC) [Entitic mass ]Ordered By: Ning Godoy on 01-17-2025 MCH (RBC) [Entitic mass] 28.6 pg 25.9-34.0 [facility] MCHC Auto (RBC) [Mass/Vol]Or dered By: Ning Godoy on 01-17-2025 MCHC (RBC) [Mass/Vol] 32.9 g/dL 29.9-35.2 [facility] MCV Auto (RBC) [Entitic vol] Ordered By: Ning Godoy on 01-17-2025 MCV (RBC) [Entitic vol] 86.8 fL 80.0-94.0 F [facility] Monocytes Auto (Bld) [#/Vol] Ordered By: Ning Godoy on 01-17-2025 Monocytes (Bld) [#/Vol] 1.0 10 3/uL High 0.3-0.8 [facility] Monocytes/100 WBC Auto (Bld) Ordered By: Ning Godoy on 01-17-2025 Monocytes/100 WBC (Bld) 5.5 % 1.7-12.0 [facility] Neutrophils Auto (Bld) [#/Vo l]Ordered By: Ning Godoy on 01-17-2025 Neutrophils (Bld) [#/Vol] 14.6 10 3/uL High 1.4-6.5 [facility] Neutrophils/100 WBC Auto (Bl d)Ordered By: Ning Godoy on 01-17-2025 Neutrophils/100 WBC (Bld) 82.0 % High 43.0-75.0 [facility] No Panel InformationOrdered By: Ning Godoy on 01-17-2025 Eosinophils # (Auto) 0.1 10 3/uL 0.0-0.7 [facility] Immature Granulocyte # (Auto) 0.29 10 3/uL High 0.00-0.03 [facility] Platelet mean volume Auto (B ld) [Entitic vol]Ordered By: Ning Godoy on 01-17-2025 Platelet mean volume (Bld) [Entitic vol] 9.8 fL 9.5-13.5 [facility] Platelets Auto (Bld) [#/Vol] Ordered By: Ning Godoy on 01-17-2025 Platelets (Bld) [#/Vol] 331 10 3/uL 150-450 [facility] RBC Auto (Bld) [#/Vol]Ordere d By: Ning Godoy on 01-17-2025 RBC (Bld) [#/Vol] 3.85 10 6/uL Low 4.70-6.10 [facility] Serum or plasma anion gap de terminationOrdered By: Ning Godoy on 01-17-2025 Anion gap [Moles/Vol] 11.3 mmol/L [facility] Basic Metabolic Panelon 12-14 Creatinine Clr Calc Pharmacy 51.32 Normal [facility] Comment on above: Performed By: #### B LISA, MG ####[place] [id number] GFR/1.73 sq M.predicted MDRD (S/P/Bld) [Vol rate/Area] mL/min/{1.73_m2} Normal [facility] Comment on above: Performed By: #### B LISA, MG ####[address] Calcium [Mass/volume] in Ser um or PlasmaOrdered By: Jostin Larose on 01-09-2025 Calcium [Mass/Vol] 8.8 mg/dL Normal 8.6-10.3 [facility] Comment on above: Performed By: #### B MP, MG ####[place] [id number] [place] [id number] [facility] Carbon dioxide, total [Moles /volume] in Serum or PlasmaOrdered By: Jostin Larose on 01-09-2025 CO2 [Moles/Vol] 26.9 mmol/L Normal 21.0-31.0 [facility] Comment on above: Performed By: #### B LISA, MG ####[place] [address] [place] [address] [facility] Chloride [Moles/volume] in S christine or PlasmaOrdered By: Jostin Larose on 01-09-2025 Chloride [Moles/Vol] 104 mmol/L Normal 98-107 [facility] Comment on above: Performed By: #### B MP, MG ####[place] [id number] [place] [id number] [facility] Creatinine [Mass/volume] in Serum or PlasmaOrdered By: Jostin Larose on 01-09-2025 Creatinine [Mass/Vol] 1.15 mg/dL Normal 0.70-1.30 [facility] Comment on above: Performed By: #### B MP, MG ####[place] [id number] [place] [id number] [facility] ECG 12 lead ECGon 01-09-2025 ECG 12 lead ECG Normal [facility] Glomerular filtration rate [ Volume Rate/Area] in Serum, Plasma or Blood by CreatinineOrdered By: Jostin Larose on 01-09-2025 Glomerular filtration rate [Volume Rate/Area] in Serum, Plasma or Blood by Creatinine > 60.0 mL/Min [facility] Glucose [Mass/volume] in Ser um or PlasmaOrdered By: Jostin Larose on 01-09-2025 Glucose [Mass/Vol] 132 mg/dL High 70-100 [facility] Comment on above: ADA recommended refe rence rangeRandom Glucose Reference Range is dependent on time and content of last meal. Glucose of more than 200 mg/dL in a nonstressed, ambulatory subject supports the diagnosis of Diabetes Mellitus. Result Comment: [place] om Glucose Reference Range is dependent on time and content of last meal. Glucose of more than 200 mg/dL in a nonstressed, ambulatory subject supports the diagnosis of Diabetes Mellitus. ADA recommended reference range Performed By: #### B MP, MG ####[place] [id number] [place] [id number] [facility] Magnesium [Mass/volume] in S christine or PlasmaOrdered By: Jostin Larose on 01-09-2025 Magnesium [Mass/Vol] 2.3 mg/dL Normal 1.9-2.7 [facility] Comment on above: Result Comment: PERF ORMED BY:[address] [place], [place] [phone] MEDICAL DIRECTORREGGIE CASTANEDA M.D. Performed By: #### B LISA, MG ####[place] [id number] [place] [phone] [facility] No Panel InformationOrdered By: Jostin Larose on 01-09-2025 Pharmacy Creatinine Clearance (Chem 51.32 [facility] Potassium [Moles/volume] in Serum or PlasmaOrdered By: Jostin Larose on 01-09-2025 Potassium [Moles/Vol] 4.9 mmol/L Normal 3.5-5.1 [facility] Comment on above: Performed By: #### B LISA, MG ####[place] [id number] [facility] Serum or plasma anion gap de terminationOrdered By: Jostin Larose on 01-09-2025 Anion gap [Moles/Vol] 11.0 mmol/L Normal 6.0-15.0 [facility] Comment on above: Performed By: #### B LISA, MG ####[address] Sodium [Moles/volume] in Ser um or PlasmaOrdered By: Jostin Larose on 01-09-2025 Sodium [Moles/Vol] 137 mmol/L Normal 136-145 [facility] Comment on above: Performed By: #### B LISA, MG ####[place] [id number] [facility] Urea nitrogen [Mass/volume] in Serum or PlasmaOrdered By: Jostin Larose on 01-09-2025 Urea nitrogen [Mass/Vol] 45 mg/dL High 12-06 [facility] Comment on above: Performed By: #### B MP, MG ####[place] [id number] [facility] Basic Metabolic Panelon 12-14 Anion gap [Moles/Vol] 10.0 mmol/L Normal 6.0-15.0 [facility] Comment on above: Performed By: #### M G, BMP ####[address] [address] [facility] Calcium [Mass/Vol] 8.8 mg/dL Normal 8.6-10.3 [facility] Comment on above: Performed By: #### M G, BMP ####[place] [address] [place] [address] [place] Chloride [Moles/Vol] 102 mmol/L Normal 98-107 [facility] Comment on above: Performed By: #### M G, BMP ####[place] [address] [place] [address] [facility] CO2 [Moles/Vol] 27.4 mmol/L Normal 21.0-31.0 [facility] Comment on above: Performed By: #### M G, BMP ####[address] [address] [facility] Creatinine [Mass/Vol] 1.30 mg/dL Normal 0.70-1.30 [facility] Comment on above: Performed By: #### Jefferson G, BMP ####[address] [address] [place] Creatinine Clr Calc Pharmacy 45.62 Normal [facility] Comment on above: Performed By: #### G, BMP ####[address] [address] [place] GFR/1.73 sq M.predicted MDRD (S/P/Bld) [Vol rate/Area] 59.099 mL/min/{1.73_m2} Normal [facility] Comment on above: Performed By: #### M G, BMP ####[address] [address] [facility] Glucose [Mass/Vol] 142 mg/dL High 70-100 [facility] Comment on above: Result Comment: [place] Glucose Reference Range is dependent on time and content of last meal. Glucose of more than 200 mg/dL in a nonstressed, ambulatory subject supports the diagnosis of Diabetes Mellitus. ADA recommended reference range Performed By: #### M G, BMP ####[place] [id number] [place] [phone] [facility] Potassium [Moles/Vol] 4.4 mmol/L Normal 3.5-5.1 [facility] Comment on above: Performed By: #### M Jefferson, BMP ####[address] Sodium [Moles/Vol] 135 mmol/L Low 136-145 [facility] Comment on above: Performed By: #### M Jefferson, BMP ####[place] [id number] [facility] Urea nitrogen [Mass/Vol] 35 mg/dL High 7-25 [facility] Comment on above: Performed By: #### M Jefferson, BMP ####[place] [id number] [facility] ECG 12 lead ECGon 01-08-2025 ECG 12 lead ECG Normal [facility] Magnesiumon 01-08-2025 Magnesium [Mass/Vol] 1.8 mg/dL Low 1.9-2.7 [facility] Comment on above: Result Comment: PERF ORMED BY:[address] [place], [place] [phone] MEDICAL DIRECTORREGGIE CASTANEDA M.D. Performed By: #### M Jefferson, BMP ####[place] [id number] [facility] Basic Metabolic Panelon 12-14 Anion gap [Moles/Vol] 9.0 mmol/L Normal 6.0-15.0 [facility] Comment on above: Performed By: #### C BCNO, MG, BMP ####[place] [id number] [facility] Calcium [Mass/Vol] 8.7 mg/dL Normal 8.6-10.3 [facility] Comment on above: Performed By: #### C BCNO, MG, BMP ####[place] [id number] [facility] Chloride [Moles/Vol] 106 mmol/L Normal 98-107 [facility] Comment on above: Performed By: #### C BCNO, MG, BMP ####[place] [id number] [place] [phone] [facility] CO2 [Moles/Vol] 27.0 mmol/L Normal 21.0-31.0 [facility] Comment on above: Performed By: #### C BCNO, MG, BMP ####[place] [address] [place] [phone] [facility] Creatinine [Mass/Vol] 0.98 mg/dL Normal 0.70-1.30 [facility] Comment on above: Performed By: #### C BCNO, MG, BMP ####[place] [address] Creatinine Clr Calc Pharmacy 60.71 Normal [facility] Comment on above: Performed By: #### C BCNO, MG, BMP ####[place] [address] GFR/1.73 sq M.predicted MDRD (S/P/Bld) [Vol rate/Area] mL/min/{1.73_m2} Normal [facility] Comment on above: Performed By: #### C BCNO, MG, BMP ####[place] [address] Glucose [Mass/Vol] 94 mg/dL Normal 70-100 [facility] Comment on above: Result Comment: [place] Glucose Reference Range is dependent on time and content of last meal. Glucose of more than 200 mg/dL in a nonstressed, ambulatory subject supports the diagnosis of Diabetes Mellitus. ADA recommended reference range Performed By: #### C BCNO, MG, BMP ####[place] [address] [place] [phone] [facility] Potassium [Moles/Vol] 4.0 mmol/L Normal 3.5-5.1 [facility] Comment on above: Performed By: #### C BCNO, MG, BMP ####[place] [address] [place] [phone] [facility] Sodium [Moles/Vol] 138 mmol/L Normal 136-145 [facility] Comment on above: Performed By: #### C BCNO, MG, BMP ####[address] Urea nitrogen [Mass/Vol] 29 mg/dL High 7-25 [facility] Comment on above: Performed By: #### C BCNO, MG, BMP ####[address] ECG 12 lead ECGon 01-07-2025 ECG 12 lead ECG Normal [facility] Erythrocyte distribution wid th [Ratio] by Automated countOrdered By: Jostin Larose on 01-07-2025 Erythrocyte distribution width (RBC) [Ratio] 18.1 % High 12.0-14.8 [facility] Comment on above: Performed By: #### C BCNO, MG, BMP ####[address] Erythrocytes [#/volume] in B lood by Automated countOrdered By: Jostin Larose on 01-07-2025 RBC (Bld) [#/Vol] 3.23 10*6/uL Low 3.90-5.60 [facility] Comment on above: Performed By: #### C BCGIOVANNA, MG, BMP ####[address] Hematocrit [Volume Fraction] of Blood by Automated countOrdered By: Jostin Larose on 01-07-2025 Hematocrit (Bld) [Volume fraction] 26.8 % Low 38.8-50.0 [facility] Comment on above: Performed By: #### C BCNO, MG, BMP ####[address] Hemoglobin [Mass/volume] in BloodOrdered By: Jostin Larose on 01-07-2025 Hemoglobin (Bld) [Mass/Vol] 9.1 g/dL Low 13.0-17.0 [facility] Comment on above: Performed By: #### C BCNO, MG, BMP ####[address] Hemogram CBC Without Diffon 01-07-2025 Mean Corpuscular HGB Conc 34.0 g/dL Normal 32.5-35.6 [facility] Comment on above: Performed By: #### C MG DANIAL, IVANA ####[place] [id number] White Blood Count 9.4 [CFU]/mL Normal 4.1-10.5 [facility] Comment on above: Performed By: #### C MG DANIAL, IVANA ####[place] [address] Leukocytes [#/volume] correc junior for nucleated erythrocytes in Blood by Automated counOrdered By: Jostin Larose on 01-07-2025 WBC corrected for nucl RBC Auto (Bld) [#/Vol] 9.4 10*3/uL 4.1-10.5 [facility] MCH [Entitic mass] by Automa junior countOrdered By: Jostin Larose on 01-07-2025 MCH (RBC) [Entitic mass] 28.2 pg Normal 27.5-35.2 [facility] Comment on above: Performed By: #### C MG DANIAL, IVANA ####[address] MCHC Auto (RBC) [Mass/Vol]Or dered By: Jostin Larose on 01-07-2025 MCHC (RBC) [Mass/Vol] 34.0 g/dL 32.5-35.6 [facility] MCV [Entitic volume] by Auto mated countOrdered By: Jostin Larose on 01-07-2025 MCV (RBC) [Entitic vol] 82.9 fL Low 83.5-101 F [facility] Comment on above: Performed By: #### C MG DANIAL, BMP ####[address] Magnesiumon 01-07-2025 Magnesium [Mass/Vol] 1.7 mg/dL Low 1.9-2.7 [facility] Comment on above: Result Comment: PERF ORMED BY:[place] [address] [place], [place] [phone] MEDICAL DIRECTORREGGIE CASTANEDA M.D. Performed By: #### C MG DANIAL, BMP ####[place] [id number] [facility] Platelet mean volume [Entiti c volume] in Blood by Automated countOrdered By: Jostin Larose on 01-07-2025 Platelet mean volume (Bld) [Entitic vol] 7.8 fL Normal 6.6-10.1 [facility] Comment on above: Result Comment: PERF ORMED BY:[address] [place], [place] [phone] MEDICAL DIRECTORREGGIE CASTANEDA M.D. Performed By: #### C MG DANIAL, BMP ####[address] Platelets [#/volume] in Bloo d by Automated countOrdered By: Jostin Larose on 01-07-2025 Platelets (Bld) [#/Vol] 265 10*3/uL Normal 150-450 [facility] Comment on above: Performed By: #### C MG DANIAL, BMP ####[address] Basic Metabolic Panelon 12-14 Anion gap [Moles/Vol] 10.2 mmol/L Normal 6.0-15.0 [facility] Comment on above: Performed By: #### B MP ####[address] Calcium [Mass/Vol] 8.5 mg/dL Low 8.6-10.3 [facility] Comment on above: Performed By: #### B MP ####[address] Chloride [Moles/Vol] 106 mmol/L Normal 98-107 [facility] Comment on above: Performed By: #### B MP ####[address] CO2 [Moles/Vol] 24.8 mmol/L Normal 21.0-31.0 [facility] Comment on above: Performed By: #### B MP ####[place] [id number] [facility] Creatinine [Mass/Vol] 1.07 mg/dL Normal 0.70-1.30 [facility] Comment on above: Performed By: #### B MP ####[place] [id number] [facility] Creatinine Clr Calc Pharmacy 55.33 Normal [facility] Comment on above: Result Comment: PERF ORMED BY:[address] [place], [place] [phone] MEDICAL DIRECTORREGGIE CASTANEDA M.D. Performed By: #### B MP ####[place] [id number] [facility] GFR/1.73 sq M.predicted MDRD (S/P/Bld) [Vol rate/Area] mL/min/{1.73_m2} Normal [facility] Comment on above: Performed By: #### B MP ####[place] [id number] [facility] Glucose [Mass/Vol] 134 mg/dL High 70-100 [facility] Comment on above: Result Comment: [facility] Glucose Reference Range is dependent on time and content of last meal. Glucose of more than 200 mg/dL in a nonstressed, ambulatory subject supports the diagnosis of Diabetes Mellitus. ADA recommended reference range Performed By: #### B MP ####[place] [id number] [facility] Potassium [Moles/Vol] 4.0 mmol/L Normal 3.5-5.1 [facility] Comment on above: Performed By: #### B MP ####[place] [id number] [facility] Sodium [Moles/Vol] 137 mmol/L Normal 136-145 [facility] Comment on above: Performed By: #### B MP ####[place] [id number] [facility] Urea nitrogen [Mass/Vol] 22 mg/dL Normal 7-25 [facility] Comment on above: Performed By: #### B MP ####[address] [address] [facility] ECH echo transthoracicon ECH echo transthoracic Normal [facility] Partial Thromboplastin Timeo n 01-06-2025 aPTT Coag (Bld) [Time] 63.1 s High 25.1-36.5 [facility] Comment on above: Result Comment: A he matocrit value greater than 55% may lead to inaccurate results in coagulation testing. Patients having hematocrit values >55% require a special collection tube for coagulation studies. Please contact the laboratory at [phone] for redraw instructions.PERFORMED BY:[place] [address] [place], [place] [phone] MEDICAL DIRECTORREGGIE CASTANEDA M.D. Performed By: #### P TT ####[address] [address] [facility] aPTT Coag (Bld) [Time] 63.0 s High 25.1-36.5 [facility] Comment on above: Order Comment: List the anticoagulant: HEPARIN, UNFRACTIONATED Result Comment: A he matocrit value greater than 55% may lead to inaccurate results in coagulation testing. Patients having hematocrit values >55% require a special collection tube for coagulation studies. Please contact the laboratory at [phone] for redraw instructions.PERFORMED BY:[place] [address] [place], [place] [phone] MEDICAL JOSEE CASTANEDA M.D. Performed By: #### P TT ####[address] [address] [facility] aPTT in Platelet poor plasma by Coagulation assayOrdered By: Elsie Leonard on 01-06-2025 aPTT Coag (PPP) [Time] 63.1 s High 25.1-36.5 [facility] Comment on above: A hematocrit value g reater than 55% may lead to inaccurate results in coagulation testing. Patients having hematocrit values >55% require a special collection tube for coagulation studies. Please contact the laboratory at [phone] for redraw instructions. Basic Metabolic Panelon 12-14 Anion gap [Moles/Vol] 13.5 mmol/L Normal 6.0-15.0 [facility] Comment on above: Performed By: #### C BC, BMP ####[address] [address] [facility] Calcium [Mass/Vol] 8.7 mg/dL Normal 8.6-10.3 [facility] Comment on above: Performed By: #### C BC, BMP ####[address] [address] [facility] Chloride [Moles/Vol] 104 mmol/L Normal 98-107 [facility] Comment on above: Performed By: #### C BC, BMP ####[address] [address] [facility] CO2 [Moles/Vol] 23.3 mmol/L Normal 21.0-31.0 [facility] Comment on above: Performed By: #### C BC, BMP ####[address] [address] [facility] Creatinine [Mass/Vol] 0.86 mg/dL Normal 0.70-1.30 [facility] Comment on above: Performed By: #### C BC, BMP ####[address] [address] [place] Creatinine Clr Calc Pharmacy 68.85 Normal [facility] Comment on above: Result Comment: PERF ORMED BY:[address] [place], [place] [phone] MEDICAL JOSEE CASTANEDA M.D. Performed By: #### C BC, BMP ####[address] [address] [place] GFR/1.73 sq M.predicted MDRD (S/P/Bld) [Vol rate/Area] mL/min/{1.73_m2} Normal [facility] Comment on above: Performed By: #### C BC, BMP ####[place] [address] [place] [address] [facility] Glucose [Mass/Vol] 165 mg/dL High 70-100 [facility] Group Comment on above: Result Comment: [place] Glucose Reference Range is dependent on time and content of last meal. Glucose of more than 200 mg/dL in a nonstressed, ambulatory subject supports the diagnosis of Diabetes Mellitus. ADA recommended reference range Performed By: #### C BC, BMP ####[address] [place] [address] [facility] Potassium [Moles/Vol] 3.8 mmol/L Normal 3.5-5.1 [facility] Comment on above: Performed By: #### C BC, BMP ####[place] [id number] [facility] Sodium [Moles/Vol] 137 mmol/L Normal 136-145 [facility] Comment on above: Performed By: #### C MARYAM, BMP ####[address] [address] [facility] Urea nitrogen [Mass/Vol] 11 mg/dL Normal 7-25 [facility] Comment on above: Performed By: #### C MARYAM, BMP ####[place] [id number] [facility] Basophils [#/volume] in Bloo d by Automated countOrdered By: Elsie Leonard on 01-05-2025 Basophils (Bld) [#/Vol] 0.0 10*3/uL Normal 0.0-0.2 [facility] Comment on above: Result Comment: PERF ORMED BY:[address] [place], [place] [phone] MEDICAL DIRECTORREGGIE CASTANEDA M.D. Performed By: #### C BC, BMP ####[address] [address] [place] Basophils/100 leukocytes in Blood by Automated countOrdered By: Elsie Leonard on 01-05-2025 Basophils/100 WBC (Bld) 0.1 % Normal . [facility] Comment on above: Performed By: #### C BC, BMP ####[place] [id number] [facility] CT angio chest PE protocolon 01-05-2025 CT angio chest PE protocol Normal [facility] Complete Blood Count Auto Di ffon 01-05-2025 Erythrocyte distribution width (RBC) [Ratio] 17.5 % High 12.0-14.8 [facility] Comment on above: Performed By: #### C BC, BMP ####[address] Hematocrit (Bld) [Volume fraction] 29.8 % Low 38.8-50.0 [facility] Comment on above: Performed By: #### C BC, BMP ####[address] Hemoglobin (Bld) [Mass/Vol] 9.9 g/dL Low 13.0-17.0 [facility] Comment on above: Performed By: #### C BC, BMP ####[address] MCH (RBC) [Entitic mass] 28.0 pg Normal 27.5-35.2 [facility] Comment on above: Performed By: #### C BC, BMP ####[address] MCV (RBC) [Entitic vol] 84.1 fL Normal 83.5-101 [facility] Comment on above: Performed By: #### C BC, BMP ####[place] [id number] [facility] Mean Corpuscular HGB Conc 33.3 g/dL Normal 32.5-35.6 [facility] Comment on above: Performed By: #### C BC, BMP ####[address] NRBC% 0.0 /100{WBC} Normal 0-0.5 [facility] Comment on above: Performed By: #### C BC, BMP ####[place] [id number] [facility] Platelet mean volume (Bld) [Entitic vol] 7.7 fL Normal 6.6-10.1 [facility] Comment on above: Performed By: #### C MARYAM, BMP ####[place] [id number] [facility] Platelets (Bld) [#/Vol] 274 10*3/uL Normal 150-450 [facility] Comment on above: Performed By: #### C MARYAM, BMP ####[address] RBC (Bld) [#/Vol] 3.54 10*6/uL Low 3.90-5.60 [facility] Comment on above: Performed By: #### C MARYAM, BMP ####[place] [id number] [facility] White Blood Count 8.6 [CFU]/mL Normal 4.1-10.5 [facility] Comment on above: Performed By: #### C MARYAM, BMP ####[place] [id number] [facility] Eosinophils [#/volume] in Bl ood by Automated countOrdered By: Elsie Leonard on 01-05-2025 Eosinophils (Bld) [#/Vol] 0.0 10*3/uL Normal 0.0-0.45 [facility] Comment on above: Performed By: #### C MARYAM, BMP ####[address] [id number] [facility] Eosinophils/100 leukocytes i n Blood by Automated countOrdered By: Elsie Irvinskiene on 01-05-2025 Eosinophils/100 WBC (Bld) 0.1 % Normal . [facility] Comment on above: Performed By: #### C MARYAM, BMP ####[place] [id number] [facility] Leukocytes [#/volume] in Blo od by Automated countOrdered By: Elsie Horacio on 01-05-2025 WBC (Bld) [#/Vol] 8.6 10*3/uL Normal 4.1-10.5 [facility] Comment on above: Performed By: #### C BC, BMP ####[address] [address] [place] Lymphocytes [#/volume] in Bl ood by Automated countOrdered By: Elsie Irvinskiene on 01-05-2025 Lymphocytes (Bld) [#/Vol] 0.4 10*3/uL Low 1.00-4.8 [facility] Comment on above: Performed By: #### C BC, BMP ####[address] [address] [facility] Lymphocytes/100 leukocytes i n Blood by Automated countOrdered By: Elsie Irvinskiene on 01-05-2025 Lymphocytes/100 WBC (Bld) 5.1 % Normal . [facility] Comment on above: Performed By: #### C BC, BMP ####[address] [address] [place] Monocytes [#/volume] in Bloo d by Automated countOrdered By: Elsie Irvinskiene on 01-05-2025 Monocytes (Bld) [#/Vol] 0.1 10*3/uL Normal 0.0-0.8 [facility] Comment on above: Performed By: #### C BC, BMP ####[address] [address] [place] Monocytes/100 leukocytes in Blood by Automated countOrdered By: Elsie Kaelyne on 01-05-2025 Monocytes/100 WBC (Bld) 1.3 % Normal . [facility] Comment on above: Performed By: #### C BC, BMP ####[address] [address] [place] Neutrophils [#/volume] in Bl ood by Automated countOrdered By: Elsie Semaskiene on 01-05-2025 Neutrophils (Bld) [#/Vol] 8.1 10*3/uL High 1.8-7.7 [facility] Comment on above: Performed By: #### C BC, BMP ####[address] [address] [place] Neutrophils/100 leukocytes i n Blood by Automated countOrdered By: Elsie Leonard on 01-05-2025 Neutrophils/100 WBC (Bld) 93.4 % Normal . [facility] Comment on above: Performed By: #### C BC, BMP ####[address] [address] [facility] Nucleated erythrocytes [Pres ence] in Blood by Automated countOrdered By: Elsie Leonard on 01-05-2025 Nucleated RBC Auto Ql (Bld) 0.0 /100{WBC} 0-0.5 [facility] Partial Thromboplastin Timeo n 01-05-2025 aPTT Coag (Bld) [Time] 50.1 s High 25.1-36.5 [facility] Comment on above: Result Comment: A he matocrit value greater than 55% may lead to inaccurate results in coagulation testing. Patients having hematocrit values >55% require a special collection tube for coagulation studies. Please contact the laboratory at [phone] for redraw instructions.PERFORMED BY:[address] [place], [place] [phone] MEDICAL JOSEE CASTANEDA M.D. Performed By: #### P TT ####[address] [address] [facility] aPTT Coag (Bld) [Time] 54.6 s High 25.1-36.5 [facility] Comment on above: Result Comment: A he matocrit value greater than 55% may lead to inaccurate results in coagulation testing. Patients having hematocrit values >55% require a special collection tube for coagulation studies. Please contact the laboratory at [phone] for redraw instructions.PERFORMED BY:[address] [place] [place], [place] [phone] MEDICAL JOSEE CASTANEDA M.D. Performed By: #### P TT ####[address] [address] [facility] aPTT Coag (Bld) [Time] 40.4 s High 25.1-36.5 [facility] Comment on above: Result Comment: A he matocrit value greater than 55% may lead to inaccurate results in coagulation testing. Patients having hematocrit values >55% require a special collection tube for coagulation studies. Please contact the laboratory at [phone] for redraw instructions.PERFORMED BY:[address] [place], [place] [phone] MEDICAL JOSEE CASTANEDA M.D. Performed By: #### P TT ####[address] [address] [facility] Troponin I High Sensitivityo n 01-05-2025 Troponin I High Sensitivity 398 Off scale high 0-20 [facility] Comment on above: Result Comment: Crit ical Result : Called to and read back by: TRAVON GUZMAN at: 01/05/2025 12:36:23 by:DIANE The Troponin units of report have been changed to meet the Chest Pain Accreditation requirement, element EC5.M1l2. Troponin units are changed from pg/ml to ng/L. Also, the decimal is removed and results are in whole numbers.PERFORMED BY:[address] [place], [place] [phone] MEDICAL JOSEE CASTANEDA M.D. Performed By: #### H S TROP ####[address] [address] [facility] Troponin I High Sensitivity 374 Off scale high 0-20 [facility] Comment on above: Result Comment: Crit ical Result : Called to and read back by: TRAVON GUZMAN at: 01/05/2025 08:10:30 by:DIANE The Troponin units of report have been changed to meet the Chest Pain Accreditation requirement, element EC5.M1l2. Troponin units are changed from pg/ml to ng/L. Also, the decimal is removed and results are in whole numbers.PERFORMED BY:[address] [place], [place] [phone] MEDICAL JOSEE CASTANEDA M.D. Performed By: #### H S TROP ####[facility] [place] [address] [facility] Troponin I High Sensitivity 288 Off scale high 0-20 [facility] Comment on above: Result Comment: Crit ical Result : Called to and read back by: AMY DEGROOT at: 01/05/2025 04:21:22 by:[id number] The Troponin units of report have been changed to meet the Chest Pain Accreditation requirement, element EC5.M1l2. Troponin units are changed from pg/ml to ng/L. Also, the decimal is removed and results are in whole numbers.PERFORMED BY:[address] [phone] MEDICAL DIRECTORREGGIE CASTANEDA M.D. Performed By: #### H S TROP ####[address] [place] [address] [facility] Troponin I.cardiac [Mass/vol ume] in Serum or Plasma by Detection limit <= 0.01 ng/mLOrdered By: Elsie Leonard on 01-05-2025 Troponin I.cardiac DL <= 0.01 ng/mL [Mass/Vol] 398 ng/L Critically high 0-20 [facility] Comment on above: Critical Result : Ca lled to and read back by: TRAVON GUZMAN at: 01/05/2025 12:36:23 by:KBThe Troponin units of report have been changed to meet the Chest Pain Accreditation requirement, element EC5.M1l2. Troponin units are changed from pg/ml to ng/L. Also, the decimal is removed and results are in whole numbers. X-ray reportOrdered By: Juliocesar Varela on 01-05-2025 Study report [facility] [address] [place] [address] XRay Report Signed Patient: Mary Mcadams MR#: [id number] : 1955 Acct:[id number] Age/Sex: 69 / M ADM Date: 5 Loc: Room: [address] [place] [address] Type: ADM IN Attending Dr: Altaf Jones MD Copies to: MD Cee Carballo, DO~ Ordering Provider: Cee Proctor DO Date [...] Varela M.D. 01/05/2025 10:46 AM Dictation Location: [place] [address] Transcribed By: [facility] 01/05/25 1046 Dictated By: Juliocesar Varela II, MD 01/05/25 1044 Signed By: 01/05/25 1046 [facility] Work Phone: XR chest 1V portableon 01-05 XR chest 1V portable Normal [facility] Alanine aminotransferase [En zymatic activity/volume] in Serum or PlasmaOrdered By: Cee Proctor on 01-04-2025 ALT [Catalytic activity/Vol] 9 U/L Normal 7-52 [facility] Comment on above: Performed By: #### C BC, CK, HS TROP, BNP, CMP ####[facility] [id number] [facility] Albumin [Mass/volume] in Ser um or Plasma by Bromocresol green (BCG) dye binding methoOrdered By: Cee Proctor on 01-04-2025 Albumin BCG dye [Mass/Vol] 3.8 g/dL 3.5-5.7 [facility] Alkaline phosphatase [Enzyma tic activity/volume] in Serum or PlasmaOrdered By: Cee Proctor on 01-04-2025 ALP [Catalytic activity/Vol] 140 U/L High 34-104 [facility] Comment on above: Performed By: #### C BC, CK, HS TROP, BNP, CMP ####[facility] [id number] [place] [address] [facility] Anti-Xa UF Heparinon 025 Anti-Xa UF Heparin 1.30 Off scale high 0.30-0.70 [facility] Comment on above: Result Comment: Crit ical value result called at 0136 on 01/05/25 Use the aPTT protocol when triglycerides are > 800 mg/dL, total bilirubin is > 20 mg/dL and/or patient has received a DOAC, Fondaparinux or LMWH within 72 hours AND baseline anti-Xa level is > 0.7 units/mLPERFORMED BY:[address] [place], [place] [phone] MEDICAL DIRECTORREGGIE CASTANEDA M.D. Performed By: #### P T, UFHEP ####[facility] [place] [address] [facility] Arterial Blood Gason 025 ABG Base Excess -2.4 mmol/L Normal -3.0-3.0 [facility] Comment on above: Performed By: #### A BG ####Point of Care testing, ABG Frac Inspired O2 32 % Normal [facility] Comment on above: Performed By: #### A BG ####Point of Care testing, ABG Oxygen Content 6.8 mmol/L Normal 6.6-9.7 [facility] Comment on above: Performed By: #### A BG ####Point of Care testing, ABG Oxygen Saturation 96.7 % Normal 95.0-100.0 [facility] Comment on above: Performed By: #### A BG ####Point of Care testing, ABG PCO2 42.2 mm[Hg] Normal 35.0-45.0 [facility] Comment on above: Performed By: #### A BG ####Point of Care testing, ABG PH 7.35 Normal 7.35-7.45 [facility] Comment on above: Performed By: #### A BG ####Point of Care testing, ABG PO2 91.5 mm[Hg] Normal 80.0-100.0 [facility] Comment on above: Performed By: #### A BG ####Point of Care testing, Respiratory Critical Normal [facility] Comment on above: Result Comment: Crit ical Value called on: 01/04/2025 at 22:22PERFORMED BY:[address] [place], [place] [phone] MEDICAL DIRECTORREGGIE CASTANEDA M.D. Performed By: #### A BG ####Point of Care testing, VBG Draw Site Right Radial Normal [facility] Comment on above: Performed By: #### A BG ####Point of Care testing, Arterial Blood GasOrdered By : Cee Proctor on 01-04-2025 CO2 [Moles/Vol] 24.3 mmol/L Normal 23.0-27.0 [facility] Comment on above: Performed By: #### A BG ####Point of Care testing, HCO3 (Bld) [Moles/Vol] 23.0 mmol/L Normal 23.0-29.0 [facility] Comment on above: Performed By: #### A BG ####Point of Care testing, Aspartate aminotransferase [ Enzymatic activity/volume] in Serum or PlasmaOrdered By: Cee Proctor on 01-04-2025 AST [Catalytic activity/Vol] 21 U/L Normal 13-39 [facility] Comment on above: Performed By: #### C BC, CK, HS TROP, BNP, CMP ####[facility] [place] [address] [facility] BNP ser/plasOrdered By: Jessica Proctor on 01-04-2025 Natriuretic peptide B (Bld) [Mass/Vol] 268.0 pg/mL High 5-100 [facility] Comment on above: Result Comment: PERF ORMED BY:[address] [address] [address] [place] [phone] MEDICAL DIRECTORREGGIE CASTANEDA M.D. Performed By: #### C BC, CK, HS TROP, BNP, CMP ####[id number] [facility] Basophils [#/volume] in Bloo d by Automated countOrdered By: eCe Proctor on 01-04-2025 Basophils (Bld) [#/Vol] 0.1 10*3/uL Normal 0.0-0.2 [facility] Comment on above: Result Comment: PERF ORMED BY:[address] [place], [place] [phone] MEDICAL JOSEE CASTANEDA M.D. Performed By: #### C BC, CK, HS TROP, BNP, CMP ####[place] [id number] [facility] Basophils/100 leukocytes in Blood by Automated countOrdered By: Cee Proctor on 01-04-2025 Basophils/100 WBC (Bld) 0.6 % Normal . [facility] Comment on above: Performed By: #### C BC, CK, HS TROP, BNP, CMP ####[address] Bilirubin.total [Mass/volume ] in Serum or PlasmaOrdered By: Cee Proctor on 01-04-2025 Bilirubin [Mass/Vol] 0.4 mg/dL Normal 0.3-1.0 [facility] Comment on above: Performed By: #### C BC, CK, HS TROP, BNP, CMP ####[place] [id number] [facility] Calcium [Mass/volume] in Ser um or PlasmaOrdered By: Cee Proctor on 01-04-2025 Calcium [Mass/Vol] 8.8 mg/dL Normal 8.6-10.3 [facility] Comment on above: Performed By: #### C BC, CK, HS TROP, BNP, CMP ####[id number] [place] Carbon dioxide, total [Moles /volume] in Serum or PlasmaOrdered By: Cee Proctor on 01-04-2025 CO2 [Moles/Vol] 25.3 mmol/L Normal 21.0-31.0 [facility] Comment on above: Performed By: #### C BC, CK, HS TROP, BNP, CMP ####[address] Chloride [Moles/volume] in S christine or PlasmaOrdered By: Cee Proctor on 01-04-2025 Chloride [Moles/Vol] 104 mmol/L Normal 98-107 [facility] Comment on above: Performed By: #### C BC, CK, HS TROP, BNP, CMP ####[address] Complete Blood Count Auto Di ffon 01-04-2025 Mean Corpuscular HGB Conc 33.4 g/dL Normal 32.5-35.6 [facility] Comment on above: Performed By: #### C BC, CK, HS TROP, BNP, CMP ####[address] Monocytes/100 WBC (Bld) 17.47 % Normal 0.00-20.00 [facility] Comment on above: Performed By: #### C BC, CK, HS TROP, BNP, CMP ####[address] NRBC% 0.1 /100{WBC} Normal 0-0.5 [facility] Comment on above: Performed By: #### C BC, CK, HS TROP, BNP, CMP ####[address] White Blood Count 10.2 [CFU]/mL Normal 4.1-10.5 [facility] Comment on above: Performed By: #### C BC, CK, HS TROP, BNP, CMP ####[address] Comprehensive Metabolic Pane juliana 01-04-2025 Albumin [Mass/Vol] 3.8 g/dL Normal 3.5-5.7 [facility] Comment on above: Performed By: #### C BC, CK, HS TROP, BNP, CMP ####[place] [id number] [facility] Creatinine Clr Calc Pharmacy 69.60 Normal [facility] Comment on above: Result Comment: PERF ORMED BY:[address] [place], [place] [phone] MEDICAL JOSEE CASTANEDA M.D. Performed By: #### C BC, CK, HS TROP, BNP, CMP ####[place] [id number] [facility] GFR/1.73 sq M.predicted MDRD (S/P/Bld) [Vol rate/Area] mL/min/{1.73_m2} Normal [facility] Comment on above: Performed By: #### C BC, CK, HS TROP, BNP, CMP ####[place] [id number] [facility] Creatine kinase [Enzymatic a ctivity/volume] in Serum or PlasmaOrdered By: Cee Proctor on 01-04-2025 CK [Catalytic activity/Vol] 30 U/L Normal 30-223 [facility] Comment on above: Performed By: #### C BC, CK, HS TROP, BNP, CMP ####[place] [id number] [facility] Creatinine [Mass/volume] in Serum or PlasmaOrdered By: Cee Proctor on 01-04-2025 Creatinine [Mass/Vol] 0.88 mg/dL Normal 0.70-1.30 [facility] Comment on above: Performed By: #### C BC, CK, HS TROP, BNP, CMP ####[place] [id number] [facility] ECG 12 lead ECGon 01-04-2025 ECG 12 lead ECG Normal [facility] Eosinophils [#/volume] in Bl ood by Automated countOrdered By: Cee Proctor on 01-04-2025 Eosinophils (Bld) [#/Vol] 0.3 10*3/uL Normal 0.0-0.45 [facility] Comment on above: Performed By: #### C BC, CK, HS TROP, BNP, CMP ####[place] [id number] Eosinophils/100 leukocytes i n Blood by Automated countOrdered By: Cee Proctor on 01-04-2025 Eosinophils/100 WBC (Bld) 3.2 % Normal . [facility] Comment on above: Performed By: #### C BC, CK, HS TROP, BNP, CMP ####[address] Erythrocyte distribution wid th [Ratio] by Automated countOrdered By: Cee Proctor on 01-04-2025 Erythrocyte distribution width (RBC) [Ratio] 17.5 % High 12.0-14.8 [facility] Comment on above: Performed By: #### C BC, CK, HS TROP, BNP, CMP ####[address] Erythrocytes [#/volume] in B lood by Automated countOrdered By: Cee Proctor on 01-04-2025 RBC (Bld) [#/Vol] 3.80 10*6/uL Low 3.90-5.60 [facility] Comment on above: Performed By: #### C BC, CK, HS TROP, BNP, CMP ####[address] Glomerular filtration rate [ Volume Rate/Area] in Serum, Plasma or Blood by CreatinineOrdered By: Cee Proctor on 01-04-2025 Glomerular filtration rate [Volume Rate/Area] in Serum, Plasma or Blood by Creatinine > 60.0 mL/Min [facility] Glucose [Mass/volume] in Ser um or PlasmaOrdered By: Cee Proctor on 01-04-2025 Glucose [Mass/Vol] 155 mg/dL High 70-100 [facility] Comment on above: ADA recommended refe rence rangeRandom Glucose Reference Range is dependent on time and content of last meal. Glucose of more than 200 mg/dL in a nonstressed, ambulatory subject supports the diagnosis of Diabetes Mellitus. Result Comment: [place] Glucose Reference Range is dependent on time and content of last meal. Glucose of more than 200 mg/dL in a nonstressed, ambulatory subject supports the diagnosis of Diabetes Mellitus. ADA recommended reference range Performed By: #### C BC, CK, HS TROP, BNP, CMP ####[address] Hematocrit [Volume Fraction] of Blood by Automated countOrdered By: Cee Proctor on 01-04-2025 Hematocrit (Bld) [Volume fraction] 31.7 % Low 38.8-50.0 [facility] Comment on above: Performed By: #### C BC, CK, HS TROP, BNP, CMP ####[place] [id number] Hemoglobin [Mass/volume] in BloodOrdered By: Cee Proctor on 01-04-2025 Hemoglobin (Bld) [Mass/Vol] 10.6 g/dL Low 13.0-17.0 [facility] Comment on above: Performed By: #### C BC, CK, HS TROP, BNP, CMP ####[address] Heparin anti-Xa unfractionat edOrdered By: Cee Proctor on 01-04-2025 Heparin unfractionated Chromogenic method Qn (PPP) 1.30 [IU]/mL Critically high 0.30-0.70 [facility] Comment on above: Critical valueresult calledat [...] Coag (PPP) [Relative time] 1.7 {INR} Normal [facility] Comment on above: INR Therapeutic Rang [...] 4.5 Performed By: #### P T, UFHEP ####[facility] Leukocytes [#/volume] correc junior for nucleated erythrocytes in Blood by Automated counOrdered By: Cee Proctor on 01-04-2025 WBC corrected for nucl RBC Auto (Bld) [#/Vol] 10.2 10*3/uL 4.1-10.5 [facility] Leukocytes [#/volume] in Blo od by Automated countOrdered By: Cee Proctor on 01-04-2025 WBC (Bld) [#/Vol] 10.2 10*3/uL Normal 4.1-10.5 [facility] Comment on above: Performed By: #### C BC, CK, HS TROP, BNP, CMP ####[place] [id number] Lymphocytes [#/volume] in Bl ood by Automated countOrdered By: Cee Proctor on 01-04-2025 Lymphocytes (Bld) [#/Vol] 1.2 10*3/uL Normal 1.00-4.8 [facility] Comment on above: Performed By: #### C BC, CK, HS TROP, BNP, CMP ####[address] Lymphocytes/100 leukocytes i n Blood by Automated countOrdered By: Cee Proctor on 01-04-2025 Lymphocytes/100 WBC (Bld) 12.3 % Normal . [facility] Comment on above: Performed By: #### C BC, CK, HS TROP, BNP, CMP ####[place] [id number] MCH [Entitic mass] by Automa junior countOrdered By: Cee Proctor on 01-04-2025 MCH (RBC) [Entitic mass] 27.8 pg Normal 27.5-35.2 [facility] Comment on above: Performed By: #### C BC, CK, HS TROP, BNP, CMP ####[address] MCHC Auto (RBC) [Mass/Vol]Or dered By: Cee Proctor on 01-04-2025 MCHC (RBC) [Mass/Vol] 33.4 g/dL 32.5-35.6 [facility] MCV [Entitic volume] by Auto mated countOrdered By: Cee Proctor on 01-04-2025 MCV (RBC) [Entitic vol] 83.3 fL Low 83.5-101 [facility] Comment on above: Performed By: #### C BC, CK, HS TROP, BNP, CMP ####[address] Monocyte distribution width [Entitic volume] in Blood by AutomatedOrdered By: Cee Proctor on 01-04-2025 Monocyte distribution width Auto (Bld) [Entitic vol] 17.47 % 0.00-20.00 [facility] Monocytes [#/volume] in Bloo d by Automated countOrdered By: Cee Proctor on 01-04-2025 Monocytes (Bld) [#/Vol] 0.6 10*3/uL Normal 0.0-0.8 [facility] Comment on above: Performed By: #### C BC, CK, HS TROP, BNP, CMP ####[address] Monocytes/100 leukocytes in Blood by Automated countOrdered By: Cee Proctor on 01-04-2025 Monocytes/100 WBC (Bld) 6.2 % Normal . [facility] [facility] Comment on above: Performed By: #### C BC, CK, HS TROP, BNP, CMP ####[facility] [id number] Neutrophils [#/volume] in Bl ood by Automated countOrdered By: Cee Proctor on 01-04-2025 Neutrophils (Bld) [#/Vol] 7.9 10*3/uL High 1.8-7.7 [facility] Comment on above: Performed By: #### C BC, CK, HS TROP, BNP, CMP ####[place] [id number] Neutrophils/100 leukocytes i n Blood by Automated countOrdered By: Cee Proctor on 01-04-2025 Neutrophils/100 WBC (Bld) 77.7 % Normal . [facility] Comment on above: Performed By: #### C BC, CK, HS TROP, BNP, CMP ####[facility] [id number] No Panel InformationOrdered By: Cee Proctor on 01-04-2025 Arterial Blood Base Excess -2.4 mmol/L -3.0-3.0 [facility] Arterial Blood Oxygen Content 6.8 mmol/L 6.6-9.7 [facility] Arterial Blood Oxygen Saturation 96.7 % 95.0-100.0 [facility] Arterial Blood Partial Pressure CO2 42.2 mm[Hg] 35.0-45.0 [facility] Arterial Blood Partial Pressure O2 91.5 mm[Hg] 80.0-100.0 [facility] Arterial Blood pH 7.35 7.35-7.45 [facility] Blood Gas Critical Value See comment [facility] Comment on above: Critical Value regan d on: 01/04/2025 at 22:22 Blood Gas Sample Site Right radial F [facility] FiO2 32 % [facility] Creatinine Clearance (Chem 69.60 [facility] Nucleated erythrocytes [Pres ence] in Blood by Automated countOrdered By: Cee Proctor on 01-04-2025 Nucleated RBC Auto Ql (Bld) 0.1 /100{WBC} 0-0.5 [facility] Platelet mean volume [Entiti c volume] in Blood by Automated countOrdered By: Cee Proctor on 01-04-2025 Platelet mean volume (Bld) [Entitic vol] 7.6 fL Normal 6.6-10.1 [facility] Comment on above: Performed By: #### C BC, CK, HS TROP, BNP, CMP ####[place] [id number] [facility] Platelets [#/volume] in Bloo d by Automated countOrdered By: Cee Proctor on 01-04-2025 Platelets (Bld) [#/Vol] 281 10*3/uL Normal 150-450 [facility] Comment on above: Performed By: #### C BC, CK, HS TROP, BNP, CMP ####[place] [id number] [facility] Potassium [Moles/volume] in Serum or PlasmaOrdered By: Cee Proctor on 01-04-2025 Potassium [Moles/Vol] 3.6 mmol/L Normal 3.5-5.1 [facility] Comment on above: Performed By: #### C BC, CK, HS TROP, BNP, CMP ####[place] [id number] [facility] Protein [Mass/volume] in Ser um or PlasmaOrdered By: Cee Proctor on 01-04-2025 Protein [Mass/Vol] 6.6 g/dL Normal 6.4-8.9 [facility] Comment on above: Performed By: #### C BC, CK, HS TROP, BNP, CMP ####[place] [id number] [facility] Prothrombin time (PT)Ordered By: Cee Proctor on 01-04-2025 PT Coag (PPP) [Time] 18.9 s High 9.0-12.9 [facility] Comment on above: A hematocrit value g reater than 55% may lead to inaccurate results in coagulation testing. Patients having hematocrit values >55% require a special collection tube for coagulation studies. Please contact the laboratory at [phone] for redraw instructions. Result Comment: A he matocrit value greater than 55% may lead to inaccurate results in coagulation testing. Patients having hematocrit values >55% require a special collection tube for coagulation studies. Please contact the laboratory at [phone] for redraw instructions. Performed By: #### P T, UFHEP ####[address] Serum globulin measurement b y calculation (mass/volume)Ordered By: Cee Proctor on 01-04-2025 Globulin (S) [Mass/Vol] 2.8 g/dL Normal [facility] Comment on above: Performed By: #### C BC, CK, HS TROP, BNP, CMP ####[address] Serum or plasma albumin/glob ulin mass ratioOrdered By: Cee Proctor on 01-04-2025 Albumin/Globulin [Mass ratio] 1.4 {ratio} Normal [facility] Comment on above: Performed By: #### C BC, CK, HS TROP, BNP, CMP ####[address] Serum or plasma anion gap de terminationOrdered By: Cee Proctor on 01-04-2025 Anion gap [Moles/Vol] 11.3 mmol/L Normal 6.0-15.0 [facility] Comment on above: Performed By: #### C BC, CK, HS TROP, BNP, CMP ####[address] Sodium [Moles/volume] in Ser um or PlasmaOrdered By: Faustoal Hitesh on 01-04-2025 Sodium [Moles/Vol] 137 mmol/L Normal 136-145 [facility] Comment on above: Performed By: #### C BC, CK, HS TROP, BNP, CMP ####[place] [id number] [facility] Troponin I High Sensitivityo n 01-04-2025 Troponin I High Sensitivity 135 Off scale high 0-20 [facility] Comment on above: Result Comment: Crit ical Result : Called to and read back by: VALENTIN CHAVEZ at: 01/05/2025 00:41:06 by:[id number] The Troponin units of report have been changed to meet the Chest Pain Accreditation requirement, element EC5.M1l2. Troponin units are changed from pg/ml to ng/L. Also, the decimal is removed and results are in whole numbers.PERFORMED BY:[address] [id number] MEDICAL DIRECTORREGGIE CASTANEDA M.D. Performed By: #### H S TROP ####[place] [id number] [facility] Troponin I High Sensitivity 33 High 0-20 [facility] Comment on above: Result Comment: The Troponin units of report have been changed to meet the Chest Pain Accreditation requirement, element EC5.M1l2. Troponin units are changed from pg/ml to ng/L. Also, the decimal is removed and results are in whole numbers.PERFORMED BY:[address] [place], [place] [phone] MEDICAL JOSEE CASTANEDA M.D. Performed By: #### C BC, CK, HS TROP, BNP, CMP ####[place] [id number] [facility] Troponin I.cardiac [Mass/vol ume] in Serum or Plasma by Detection limit <= 0.01 ng/mLOrdered By: Cee Proctor on 01-04-2025 Troponin I.cardiac DL <= 0.01 ng/mL [Mass/Vol] 135 ng/L Critically high 0-20 [facility] Comment on above: Critical Result : Ca lled to and read back by: VALENTIN CHAVEZ at: 01/05/2025 00:41:06 by:[id number] Troponin units of report have been changed to meet the Chest Pain Accreditation requirement, element EC5.M1l2. Troponin units are changed from pg/ml to ng/L. Also, the decimal is removed and results are in whole numbers. Urea nitrogen [Mass/volume] in Serum or PlasmaOrdered By: Cee Proctor on 01-04-2025 Urea nitrogen [Mass/Vol] 11 mg/dL Normal 7-25 [facility] Comment on above: Performed By: #### C BC, CK, HS TROP, BNP, CMP ####[address] [address] [facility] Basic Metabolic Panelon Creatinine Clr Calc Pharmacy 65.31 Normal [facility] Comment on above: Result Comment: PERF ORMED BY:[address] [place], [place] [phone] MEDICAL JOSEE CASTANEDA M.D. Performed By: #### C BC, BMP ####[place] [id number] [facility] GFR/1.73 sq M.predicted MDRD (S/P/Bld) [Vol rate/Area] mL/min/{1.73_m2} Normal [facility] Comment on above: Performed By: #### C BC, BMP ####[place] [id number] [facility] Basophils [#/volume] in Bloo d by Automated countOrdered By: Silvano Reed on 11-12-2024 Basophils (Bld) [#/Vol] 0.0 10*3/uL Normal 0.0-0.2 [facility] Comment on above: Result Comment: PERF ORMED BY:[place] [address] [address] [place], [place] [phone] MEDICAL JOSEE CASTANEDA M.D. Performed By: #### C BC, BMP ####[address] [address] [facility] Basophils/100 leukocytes in Blood by Automated countOrdered By: Silvano Reed on 11-12-2024 Basophils/100 WBC (Bld) 0.1 % Normal . [facility] Comment on above: Performed By: #### C BC, BMP ####[address] Calcium [Mass/volume] in Ser um or PlasmaOrdered By: Silvano Reed on 11-12-2024 Calcium [Mass/Vol] 9.1 mg/dL Normal 8.6-10.3 [facility] Comment on above: Performed By: #### C BC, BMP ####[address] Carbon dioxide, total [Moles /volume] in Serum or PlasmaOrdered By: Silvano Reed on 11-12-2024 CO2 [Moles/Vol] 28.1 mmol/L Normal 21.0-31.0 [facility] Comment on above: Performed By: #### C BC, BMP ####[address] Chloride [Moles/volume] in S christine or PlasmaOrdered By: Silvano Reed on 11-12-2024 Chloride [Moles/Vol] 100 mmol/L Normal 98-107 [facility] Comment on above: Performed By: #### C BC, BMP ####[address] Complete Blood Count Auto Di ffon 11-12-2024 Mean Corpuscular HGB Conc 32.7 g/dL Normal 32.5-35.6 [facility] Comment on above: Performed By: #### C BC, BMP ####[place] [id number] [facility] NRBC% 0.0 /100{WBC} Normal 0-0.5 [facility] Comment on above: Performed By: #### C BC, BMP ####[address] White Blood Count 18.4 [CFU]/mL High 4.1-10.5 [facility] Comment on above: Performed By: #### C BC, BMP ####[place] [id number] [facility] Creatinine [Mass/volume] in Serum or PlasmaOrdered By: Silvano Reed on 11-12-2024 Creatinine [Mass/Vol] 0.92 mg/dL Normal 0.70-1.30 [facility] Comment on above: Performed By: #### C BC, BMP ####[place] [id number] [facility] Eosinophils [#/volume] in Bl ood by Automated countOrdered By: Silvano Reed on 11-12-2024 Eosinophils (Bld) [#/Vol] 0.0 10*3/uL Normal 0.0-0.45 [facility] Comment on above: Performed By: #### C MARYAM, BMP ####[place] [id number] [facility] Eosinophils/100 leukocytes i n Blood by Automated countOrdered By: Silvano Reed on 11-12-2024 Eosinophils/100 WBC (Bld) 0.0 % Normal . [facility] Comment on above: Performed By: #### C MARYAM, BMP ####[place] [id number] [facility] Erythrocyte distribution wid th [Ratio] by Automated countOrdered By: Silvano Reed on 11-12-2024 Erythrocyte distribution width (RBC) [Ratio] 16.5 % High 12.0-14.8 [facility] Comment on above: Performed By: #### C MARYAM, BMP ####[place] [id number] [facility] Erythrocytes [#/volume] in B lood by Automated countOrdered By: Silvano Reed on 11-12-2024 RBC (Bld) [#/Vol] 3.34 10*6/uL Low 3.90-5.60 [facility] Comment on above: Performed By: #### C MARYAM, BMP ####[place] [id number] [facility] Glucose [Mass/volume] in Ser um or PlasmaOrdered By: Silvano Reed on 11-12-2024 Glucose [Mass/Vol] 144 mg/dL High 70-100 [facility] Comment on above: ADA recommended refe rence rangeRandom Glucose Reference Range is dependent on time and content of last meal. Glucose of more than 200 mg/dL in a nonstressed, ambulatory subject supports the diagnosis of Diabetes Mellitus. Result Comment: [place] om Glucose Reference Range is dependent on time and content of last meal. Glucose of more than 200 mg/dL in a nonstressed, ambulatory subject supports the diagnosis of Diabetes Mellitus. ADA recommended reference range Performed By: #### C MARYAM, BMP ####[place] [id number] Hematocrit [Volume Fraction] of Blood by Automated countOrdered By: Silvano Reed on 11-12-2024 Hematocrit (Bld) [Volume fraction] 27.0 % Low 38.8-50.0 [facility] Comment on above: Performed By: #### C MARYAM, BMP ####[place] [id number] [facility] Hemoglobin [Mass/volume] in BloodOrdered By: Silvano Reed on 11-12-2024 Hemoglobin (Bld) [Mass/Vol] 8.8 g/dL Low 13.0-17.0 [facility] Comment on above: Performed By: #### C BC, BMP ####[place] [id number] [facility] Leukocytes [#/volume] correc junior for nucleated erythrocytes in Blood by Automated counOrdered By: Silvano Reed on 11-12-2024 WBC corrected for nucl RBC Auto (Bld) [#/Vol] 18.4 10*3/uL High 4.1-10.5 [facility] Leukocytes [#/volume] in Blo od by Automated countOrdered By: Silvano Reed on 11-12-2024 WBC (Bld) [#/Vol] 18.4 10*3/uL High 4.1-10.5 [facility] Comment on above: Performed By: #### C BC, BMP ####[address] Lymphocytes [#/volume] in Bl ood by Automated countOrdered By: Silvano Reed on 11-12-2024 Lymphocytes (Bld) [#/Vol] 0.7 10*3/uL Low 1.00-4.8 [facility] Comment on above: Performed By: #### C BC, BMP ####[address] Lymphocytes/100 leukocytes i n Blood by Automated countOrdered By: Silvano Reed on 11-12-2024 Lymphocytes/100 WBC (Bld) 4.1 % Normal . [facility] Comment on above: Performed By: #### C MARYAM, BMP ####[address] MCH [Entitic mass] by Automa junior countOrdered By: Silvano Reed on 11-12-2024 MCH (RBC) [Entitic mass] 26.5 pg Low 27.5-35.2 [facility] Comment on above: Performed By: #### C MARYAM, BMP ####[address] MCHC Auto (RBC) [Mass/Vol]Or dered By: Silvano Reed on 11-12-2024 MCHC (RBC) [Mass/Vol] 32.7 g/dL 32.5-35.6 [facility] MCV [Entitic volume] by Auto mated countOrdered By: Silvano Reed on 11-12-2024 MCV (RBC) [Entitic vol] 80.9 fL Low 83.5-101 F [facility] Comment on above: Performed By: #### C BC, BMP ####[address] Monocytes [#/volume] in Bloo d by Automated countOrdered By: Silvano Reed on 11-12-2024 Monocytes (Bld) [#/Vol] 0.5 10*3/uL Normal 0.0-0.8 [facility] Comment on above: Performed By: #### C MARYAM, BMP ####[place] [id number] [place] [id number] [facility] Monocytes/100 leukocytes in Blood by Automated countOrdered By: Silvano Rede on 11-12-2024 Monocytes/100 WBC (Bld) 2.8 % Normal . [facility] Comment on above: Performed By: #### C MARYAM, BMP ####[place] [id number] Neutrophils [#/volume] in Bl ood by Automated countOrdered By: Silvano Reed on 11-12-2024 Neutrophils (Bld) [#/Vol] 17.1 10*3/uL High 1.8-7.7 [facility] Comment on above: Performed By: #### C MARYAM, BMP ####[address] Neutrophils/100 leukocytes i n Blood by Automated countOrdered By: Silvano Reed on 11-12-2024 Neutrophils/100 WBC (Bld) 93.0 % Normal . [facility] Comment on above: Performed By: #### C MARYAM, BMP ####[address] No Panel InformationOrdered By: Silvano Reed on 11-12-2024 Estimated GFR (CKD-EPI) > 60.0 mL/Min [facility] Creatinine Clearance (Chem 65.31 [facility] Nucleated erythrocytes [Pres ence] in Blood by Automated countOrdered By: Silvano Reed on 11-12-2024 Nucleated RBC Auto Ql (Bld) 0.0 /100{WBC} 0-0.5 [facility] Platelet mean volume [Entiti c volume] in Blood by Automated countOrdered By: Silvano Reed on 11-12-2024 Platelet mean volume (Bld) [Entitic vol] 7.9 fL Normal 6.6-10.1 [facility] Comment on above: Performed By: #### C BC, BMP ####[address] [address] [facility] Platelets [#/volume] in Bloo d by Automated countOrdered By: Silvano Reed on 11-12-2024 Platelets (Bld) [#/Vol] 273 10*3/uL Normal 150-450 [facility] Comment on above: Performed By: #### C BC, BMP ####[address] [address] [facility] Potassium [Moles/volume] in Serum or PlasmaOrdered By: Silvano Reed on 11-12-2024 Potassium [Moles/Vol] 4.1 mmol/L Normal 3.5-5.1 [facility] Comment on above: Performed By: #### C BC, BMP ####[place] [id number] [facility] Serum or plasma anion gap de terminationOrdered By: Silvano Reed on 11-12-2024 Anion gap [Moles/Vol] 11.0 mmol/L Normal 6.0-15.0 [facility] Comment on above: Performed By: #### C BC, BMP ####[place] [id number] [facility] Sodium [Moles/volume] in Ser um or PlasmaOrdered By: Silvano Reed on 11-12-2024 Sodium [Moles/Vol] 135 mmol/L Low 136-145 [facility] Comment on above: Performed By: #### C BC, BMP ####[address] [address] [facility] Urea nitrogen [Mass/volume] in Serum or PlasmaOrdered By: Silvano Reed on 11-12-2024 Urea nitrogen [Mass/Vol] 22 mg/dL Normal 7-25 [facility] Comment on above: Performed By: #### C BC, BMP ####[address] [address] [place] Appearance of UrineOrdered B y: Silvano Reed on 11-11-2024 Appearance (U) Clear Normal Clear [facility] Comment on above: Order Comment: Name Collection Type:: Straight Catheter Performed By: #### A DDONUAPLUS ####[address] [address] [place] Bacteria [Presence] in Urine by AutomatedOrdered By: Silvano Reed on 11-11-2024 Bacteria Auto Ql (U) Rare [HPF] None Seen [facility] Bilirubin Test strip Ql (U)O rdered By: Silvano Rejialexjefferson on 11-11-2024 Bilirubin Ql (U) Negative Negative [facility] Color of Urine by AutoOrdere d By: Silvano Derek on 11-11-2024 Color (U) Light-yellow Normal Yellow [facility] Comment on above: Order Comment: Name Collection Type:: Straight Catheter Performed By: #### A DDONUAPLUS ####[address] [address] [place] Dipstick and Microscopicon 0 11-11-2024 Bacteria,Urine Rare Normal None Seen [facility] Comment on above: Order Comment: Name Collection Type:: Straight Catheter Performed By: #### A DDONUAPLUS ####[address] [address] [place] Bilirubin,Urine Negative Normal Negative [facility] Comment on above: Order Comment: Name Collection Type:: Straight Catheter Performed By: #### A DDONUAPLUS ####[address] [address] [facility] Glucose Ql (U) 50 mg/dL Normal Normal [facility] Comment on above: Order Comment: Name Collection Type:: Straight Catheter Performed By: #### A DDONUAPLUS ####[address] [address] [place] Hyaline Casts,Urine 9-19 Normal 0-8 [facility] Comment on above: Order Comment: Name Collection Type:: Straight Catheter Performed By: #### A DDONUAPLUS ####[address] [place] [address] [facility] Mucus,Urine Rare Normal [facility] Comment on above: Order Comment: Name Collection Type:: Straight Catheter Result Comment: PERF ORMED BY:[address] [place], [place] [phone] MEDICAL JOSEE CASTANEDA M.D. Performed By: #### A DDONUAPLUS ####[place] [id number] [facility] Nitrite,Urine Positive Normal Negative [facility] Comment on above: Order Comment: Name Collection Type:: Straight Catheter Performed By: #### A DDONUAPLUS ####[place] [id number] [facility] Occult Blood,Urine Trace Normal Negative [facility] Comment on above: Order Comment: Name Collection Type:: Straight Catheter Result Comment: PERF ORMED BY:[address] [place], [place] [phone] MEDICAL JOSEE CASTANEDA M.D. Performed By: #### A DDONUAPLUS ####[place] [id number] [facility] Protein,Urine Negative Normal Negative [facility] Comment on above: Order Comment: Name Collection Type:: Straight Catheter Performed By: #### A DDONUAPLUS ####[address] [address] [facility] RBC,Urine 1-2 Normal 0-4 [facility] Comment on above: Order Comment: Name Collection Type:: Straight Catheter Performed By: #### A DDONUAPLUS ####[address] [address] [facility] Specificy [place],Urine 1.012 Normal 1.00 1-1.03 0 [facility] Comment on above: Order Comment: Name Collection Type:: Straight Catheter Performed By: #### A DDONUAPLUS ####[address] [address] [facility] Urobilinogen,Urine Normal Normal Normal [facility] Comment on above: Order Comment: Name Collection Type:: Straight Catheter Performed By: #### A DDONUAPLUS ####[place] [address] [place] [id number] [facility] WBC,Urine 20-49 Normal 0-4 [facility] Comment on above: Order Comment: Name Collection Type:: Straight Catheter Performed By: #### A DDONUAPLUS ####[place] [address] [place] [id number] [facility] Epithelial cells.squamous [# /area] in Urine sediment by Automated countOrdered By: Silvano Reed on 11-11-2024 Epithelial cells.squamous Auto (Urine sed) [#/Area] N/A [facility] Erythrocytes [#/area] in Uri ne sediment by Automated countOrdered By: Silvano Reed on 11-11-2024 RBC Auto (Urine sed) [#/Area] 1-2 [HPF] 0-4 [facility] Glucose [Mass/volume] in Uri ne by Test stripOrdered By: Silvano Reed on 11-11-2024 Glucose Test strip (U) [Mass/Vol] 50 mg/dL High Normal [facility] Hemoglobin Test strip Ql (U) Ordered By: Silvano Reed on 11-11-2024 Hemoglobin Ql (U) Trace High Negative [facility] Hyaline casts [#/area] in Ur ine sediment by Automated countOrdered By: Silvano Reed on 11-11-2024 Hyaline casts Auto (Urine sed) [#/Area] 9-19 [LPF] High 0-8 [facility] Ketones [Presence] in Urine by Test stripOrdered By: Silvano Reed on 11-11-2024 Ketones Ql (U) Negative Normal Negative [facility] Comment on above: Order Comment: Name Collection Type:: Straight Catheter Performed By: #### A DDONUAPLUS ####[facility] [id number] [place] [id number] [facility] Leukocyte esterase [Presence ] in Urine by Test stripOrdered By: Silvano Reed on 11-11-2024 Leukocyte esterase Test strip Ql (U) 2+ Normal Negative [facility] Comment on above: Order Comment: Name Collection Type:: Straight Catheter Performed By: #### A DDONUAPLUS ####[facility] [id number] Leukocytes [#/area] in Urine sediment by Automated countOrdered By: Silvano Reed on 11-11-2024 WBC Auto (Urine sed) [#/Area] 20-49 [HPF] High 0-4 [facility] Mucus [Presence] in Urine by AutomatedOrdered By: Silvano Reed on 11-11-2024 Mucus Auto Ql (U) Rare [LPF] [facility] Nitrite Test strip Ql (U)Ord ered By: Silvano Reed on 11-11-2024 Nitrite Ql (U) Positive High Negative [facility] Protein Test strip (U) [Mass /Vol]Ordered By: Silvano Reed on 11-11-2024 Protein (U) [Mass/Vol] Negative Negative [facility] Specific gravity Test strip (U) [Rel density]Ordered By: Silvano Reed on 11-11-2024 Specific gravity (U) [Rel density] 1.012 1.001-1.03 0 [facility] Urobilinogen Test strip (U) [Mass/Vol]Ordered By: Silvano Reed on 11-11-2024 Urobilinogen (U) [Mass/Vol] Normal mg/dL Normal [facility] X-ray reportOrdered By: Addy Iyer on 11-11-2024 Study report [facility] [address] [place] [address] XRay Report Signed Patient: Mary Mcadams MR#: [id number] : 1955 Acct:[id number] Age/Sex: 69 / M ADM Date: 5 Loc: 3T Room: [address] [place] [address] Type: ADM IN Attending Dr: Silvano Reed DO Copies to: Hasmukh Vides, DO Silvano Reed, ~ Ordering Provider: Hasmukh Vides DO Date of [...] Iyer M.D. 11/11/2024 8:12 AM Dictation Location: [place] [address] Transcribed By: [facility] 11/11/24811 Dictated By: Prudencio Iyer MD 11/11/24809 Signed By: 11/11/24811 [facility] Work Phone: XR chest 1V portableon 11-11 XR chest 1V portable Normal [facility] pH of Urine by Test stripOrd ered By: Silvano Reed on 11-11-2024 pH (U) 5.5 [pH] Normal 5.0-9.0 [facility] Comment on above: Order Comment: Name Collection Type:: Straight Catheter Performed By: #### A DDONUAPLUS ####[place] [id number] Alanine aminotransferase [En zymatic activity/volume] in Serum or PlasmaOrdered By: Hasmukh Vides on 11-10-2024 ALT [Catalytic activity/Vol] 10 U/L Normal 7-52 [facility] Comment on above: Performed By: #### B KITCHEN LEAD, HS TROP, CBC, MG, CK, CMP ####[facility] [id number] Albumin [Mass/volume] in Ser um or Plasma by Bromocresol green (BCG) dye binding methoOrdered By: Hasmukh Vides on 11-10-2024 Albumin BCG dye [Mass/Vol] 3.9 g/dL 3.5-5.7 [facility] Alkaline phosphatase [Enzyma tic activity/volume] in Serum or PlasmaOrdered By: Hasmukh Vides on 11-10-2024 ALP [Catalytic activity/Vol] 149 U/L High 34-104 [facility] Comment on above: Performed By: #### B KITCHEN LEAD, HS TROP, CBC, MG, CK, CMP ####[place] [id number] [place] [id number] [facility] Appearance of UrineOrdered B y: Hasmukh Vides on 11-10-2024 Appearance (U) Clear Normal Clear [facility] Comment on above: Order Comment: Name Collection Type:: Clean-Voided Midstream Performed By: #### A RADHA JORGENSENU ####[place] [id number] [facility] Aspartate aminotransferase [ Enzymatic activity/volume] in Serum or PlasmaOrdered By: Hasmukh Vides on 11-10-2024 AST [Catalytic activity/Vol] 19 U/L Normal 13-39 [facility] Comment on above: Performed By: #### B KITCHEN LEAD, HS TROP, CBC, MG, CK, CMP ####[place] [id number] [facility] BNP ser/plasOrdered By: Juan Vides on 11-10-2024 Natriuretic peptide B (Bld) [Mass/Vol] 187.0 pg/mL High 5-100 [facility] Comment on above: Result Comment: PERF ORMED BY:[address] [place], [place] [phone] MEDICAL DIRECTORREGGIE CASTANEDA M.D. Performed By: #### B KITCHEN LEAD, HS TROP, CBC, MG, CK, CMP ####[place] [id number] [facility] Bacteria [Presence] in Urine by AutomatedOrdered By: Hasmukh Vides on 11-10-2024 Bacteria Auto Ql (U) 2+ [HPF] High None Seen [facility] Basophils [#/volume] in Bloo d by Automated countOrdered By: Hasmukh Vides on 11-10-2024 Basophils (Bld) [#/Vol] 0.0 10*3/uL Normal 0.0-0.2 [facility] Comment on above: Result Comment: PERF ORMED BY:[address] [place], [place] [phone] MEDICAL DIRECTORREGGIE CASTANEDA M.D. Performed By: #### B KITCHEN LEAD, HS TROP, CBC, MG, CK, CMP ####[place] [id number] [facility] Basophils/100 leukocytes in Blood by Automated countOrdered By: Hasmukh Vides on 11-10-2024 Basophils/100 WBC (Bld) 0.5 % Normal . [facility] Comment on above: Performed By: #### B KITCHEN LEAD, HS TROP, CBC, MG, CK, CMP ####[place] [id number] [facility] Bilirubin Test strip Ql (U)O rdered By: Hasmukh Vides on 11-10-2024 Bilirubin Ql (U) Negative Negative [facility] Bilirubin.total [Mass/volume ] in Serum or PlasmaOrdered By: Hasmukh Vides on 11-10-2024 Bilirubin [Mass/Vol] 0.6 mg/dL Normal 0.3-1.0 [facility] Comment on above: Performed By: #### B KITCHEN LEAD, HS TROP, CBC, MG, CK, CMP ####[place] [id number] [facility] Calcium [Mass/volume] in Ser um or PlasmaOrdered By: Hasmukh Vides on 11-10-2024 Calcium [Mass/Vol] 9.8 mg/dL Normal 8.6-10.3 [facility] Comment on above: Performed By: #### B KITCHEN LEAD, HS TROP, CBC, MG, CK, CMP ####[place] [id number] [facility] Carbon dioxide, total [Moles /volume] in Serum or PlasmaOrdered By: Hasmukh Vides on 11-10-2024 CO2 [Moles/Vol] 28.0 mmol/L Normal 21.0-31.0 [facility] Comment on above: Performed By: #### B KITCHEN LEAD, HS TROP, CBC, MG, CK, CMP ####[address] Chloride [Moles/volume] in S christine or PlasmaOrdered By: Hasmukh Vides on 11-10-2024 Chloride [Moles/Vol] 98 mmol/L Normal 98-107 [facility] Comment on above: Performed By: #### B KITCHEN LEAD, HS TROP, CBC, MG, CK, CMP ####[address] Color of Urine by AutoOrdere d By: Hasmukh Vides on 11-10-2024 Color (U) Light-yellow Normal Yellow [facility] Comment on above: Order Comment: Name Collection Type:: Clean-Voided Midstream Performed By: #### A DDONUAPLUS, CUU ####[address] Complete Blood Count Auto Di ffon 11-10-2024 Mean Corpuscular HGB Conc 33.4 g/dL Normal 32.5-35.6 [facility] Comment on above: Performed By: #### B KITCHEN LEAD, HS TROP, CBC, MG, CK, CMP ####[address] Monocytes/100 WBC (Bld) 18.48 % Normal 0.00-20.00 [facility] Comment on above: Performed By: #### B KITCHEN LEAD, HS TROP, CBC, MG, CK, CMP ####[address] NRBC% 0.1 /100{WBC} Normal 0-0.5 [facility] Comment on above: Performed By: #### B KITCHEN LEAD, HS TROP, CBC, MG, CK, CMP ####[address] White Blood Count 6.4 [CFU]/mL Normal 4.1-10.5 [facility] Comment on above: Performed By: #### B KITCHEN LEAD, HS TROP, CBC, MG, CK, CMP ####[place] [id number] [place] [id number] [facility] Comprehensive Metabolic Pane juliana 11-10-2024 Albumin [Mass/Vol] 3.9 g/dL Normal 3.5-5.7 [facility] Comment on above: Performed By: #### B KITCHEN LEAD, HS TROP, CBC, MG, CK, CMP ####[place] [id number] [place] [id number] [facility] Creatinine Clr Calc Pharmacy 77.17 Normal [facility] Comment on above: Performed By: #### B KITCHEN LEAD, HS TROP, CBC, MG, CK, CMP ####[place] [id number] GFR/1.73 sq M.predicted MDRD (S/P/Bld) [Vol rate/Area] mL/min/{1.73_m2} Normal [facility] Comment on above: Performed By: #### B KITCHEN LEAD, HS TROP, CBC, MG, CK, CMP ####[address] Creatine kinase [Enzymatic a ctivity/volume] in Serum or PlasmaOrdered By: Hasmukh Vides on 11-10-2024 CK [Catalytic activity/Vol] 27 U/L Low 30-223 [facility] Comment on above: Performed By: #### B KITCHEN LEAD, HS TROP, CBC, MG, CK, CMP ####[place] [id number] [facility] Creatinine [Mass/volume] in Serum or PlasmaOrdered By: Hasmukh Vides on 11-10-2024 Creatinine [Mass/Vol] 0.80 mg/dL Normal 0.70-1.30 [facility] Comment on above: Performed By: #### B KITCHEN LEAD, HS TROP, CBC, MG, CK, CMP ####[address] Dipstick and Microscopicon 0 11-10-2024 Bacteria,Urine 2+ [HPF] Normal None Seen [facility] Comment on above: Order Comment: Name Collection Type:: Clean-Voided Midstream Performed By: #### A DDONUAPLUS, CUU ####[place] [address] [place] [address] [facility] Bilirubin,Urine Negative Normal Negative [facility] Comment on above: Order Comment: Name Collection Type:: Clean-Voided Midstream Performed By: #### A DDONUAPLUS, CUU ####[place] [address] [place] [address] [facility] Glucose Ql (U) Normal Normal Normal [facility] Comment on above: Order Comment: Name Collection Type:: Clean-Voided Midstream Performed By: #### A DDONUAPLUS, CUU ####[address] [address] [place] Hyaline Casts,Urine 9-19 Normal 0-8 [facility] Comment on above: Order Comment: Name Collection Type:: Clean-Voided Midstream Performed By: #### A DDONUAPLUS, CUU ####[address] [address] [facility] Mucus,Urine Rare Normal [facility] Comment on above: Order Comment: Name Collection Type:: Clean-Voided Midstream Result Comment: PERF ORMED BY:[address] [place], [place] [phone] MEDICAL JOSEE CASTANEDA M.D. Performed By: #### A DDONUAPLUS, CUU ####[address] [address] [facility] Nitrite,Urine Positive Normal Negative [facility] Comment on above: Order Comment: Name Collection Type:: Clean-Voided Midstream Performed By: #### A DDONUAPLUS, CUU ####[address] [address] [facility] Occult Blood,Urine Negative Normal Negative [facility] Comment on above: Order Comment: Name Collection Type:: Clean-Voided Midstream Result Comment: PERF ORMED BY:[address] [place], [place] [phone] MEDICAL JOSEE CASTANEDA M.D. Performed By: #### A DDONUAPLUS, CUU ####[place] [id number] [facility] Protein,Urine Negative Normal Negative [facility] Comment on above: Order Comment: Name Collection Type:: Clean-Voided Midstream Performed By: #### A DDONUAPLUS, CUU ####[address] [address] [facility] RBC,Urine 3-4 Normal 0-4 [facility] Comment on above: Order Comment: Name Collection Type:: Clean-Voided Midstream Performed By: #### A DDONUAPLUS, CUU ####[place] [phone] [facility] Specificy [place],Urine 1.010 Normal 1.00 1-1.03 0 [facility] Comment on above: Order Comment: Name Collection Type:: Clean-Voided Midstream Performed By: #### A DDONUAPLUS, CUU ####[place] [id number] [facility] Squamous Epithelial Cell,Urine 1-2 Normal 0-2 [facility] Comment on above: Order Comment: Name Collection Type:: Clean-Voided Midstream Performed By: #### A DDONUAPLUS, CUU ####[place] [id number] [facility] Urobilinogen,Urine Normal Normal Normal [facility] Comment on above: Order Comment: Name Collection Type:: Clean-Voided Midstream Performed By: #### A DDONUAPLUS, CUU ####[place] [id number] [facility] WBC CLUMP, Urine Many Normal None Seen [facility] Comment on above: Order Comment: Name Collection Type:: Clean-Voided Midstream Performed By: #### A DDONUAPLUS, CUU ####[place] [id number] [facility] WBC,Urine Innumerable Normal 0-4 [facility] Comment on above: Order Comment: Name Collection Type:: Clean-Voided Midstream Performed By: #### A DDONUAPLUS, CUU ####[address] [place] [address] [place] ECG 12 lead ECGon 11-10-2024 ECG 12 lead ECG Normal [facility] Eosinophils [#/volume] in Bl ood by Automated countOrdered By: Hasmukh Vides on 11-10-2024 Eosinophils (Bld) [#/Vol] 0.3 10*3/uL Normal 0.0-0.45 [facility] Comment on above: Performed By: #### B KITCHEN LEAD, HS TROP, CBC, MG, CK, CMP ####[address] Eosinophils/100 leukocytes i n Blood by Automated countOrdered By: Hasmukh Vides on 11-10-2024 Eosinophils/100 WBC (Bld) 5.0 % Normal . [facility] Comment on above: Performed By: #### B KITCHEN LEAD, HS TROP, CBC, MG, CK, CMP ####[place] [id number] Epithelial cells.squamous [# /area] in Urine sediment by Automated countOrdered By: Hasmukh Vides on 11-10-2024 Epithelial cells.squamous Auto (Urine sed) [#/Area] 1-2 [HPF] 0-2 [facility] Erythrocyte distribution wid th [Ratio] by Automated countOrdered By: Hasmukh Vides on 11-10-2024 Erythrocyte distribution width (RBC) [Ratio] 16.5 % High 12.0-14.8 [facility] Comment on above: Performed By: #### B KITCHEN LEAD, HS TROP, CBC, MG, CK, CMP ####[address] Erythrocytes [#/area] in Uri ne sediment by Automated countOrdered By: Hasmukh Vides on 11-10-2024 RBC Auto (Urine sed) [#/Area] 3-4 [HPF] 0-4 [facility] Erythrocytes [#/volume] in B lood by Automated countOrdered By: Hasmukh Vides on 11-10-2024 RBC (Bld) [#/Vol] 3.90 10*6/uL Normal 3.90-5.60 [facility] Comment on above: Performed By: #### B KITCHEN LEAD, HS TROP, CBC, MG, CK, CMP ####[place] [id number] [place] [id number] [facility] Glucose [Mass/volume] in Ser um or PlasmaOrdered By: Hasmukh Vides on 11-10-2024 Glucose [Mass/Vol] 100 mg/dL Normal 70-100 [facility] Comment on above: ADA recommended refe rence rangeRandom Glucose Reference Range is dependent on time and content of last meal. Glucose of more than 200 mg/dL in a nonstressed, ambulatory subject supports the diagnosis of Diabetes Mellitus. Result Comment: [place] om Glucose Reference Range is dependent on time and content of last meal. Glucose of more than 200 mg/dL in a nonstressed, ambulatory subject supports the diagnosis of Diabetes Mellitus. ADA recommended reference range Performed By: #### B KITCHEN LEAD, HS TROP, CBC, MG, CK, CMP ####[place] [id number] [place] [id number] [facility] Glucose [Mass/volume] in Uri ne by Test stripOrdered By: Hasmukh Vides on 11-10-2024 Glucose Test strip (U) [Mass/Vol] Normal mg/dL Normal [facility] Hematocrit [Volume Fraction] of Blood by Automated countOrdered By: Hasmukh Vides on 11-10-2024 Hematocrit (Bld) [Volume fraction] 31.6 % Low 38.8-50.0 [facility] Comment on above: Performed By: #### B KITCHEN LEAD, HS TROP, CBC, MG, CK, CMP ####[place] [id number] [facility] Hemoglobin Test strip Ql (U) Ordered By: Hasmukh Vides on 11-10-2024 Hemoglobin Ql (U) Negative Negative [facility] Hemoglobin [Mass/volume] in BloodOrdered By: Hasmukh Vides on 11-10-2024 Hemoglobin (Bld) [Mass/Vol] 10.5 g/dL Low 13.0-17.0 [facility] Comment on above: Performed By: #### B KITCHEN LEAD, HS TROP, CBC, MG, CK, CMP ####[place] [id number] [facility] Hyaline casts [#/area] in Ur ine sediment by Automated countOrdered By: Hasmukh Vides on 11-10-2024 Hyaline casts Auto (Urine sed) [#/Area] 9-19 [LPF] High 0-8 [facility] Ketones [Presence] in Urine by Test stripOrdered By: Hasmukh Vides on 11-10-2024 Ketones Ql (U) Negative Normal Negative [facility] Comment on above: Order Comment: Name Collection Type:: Clean-Voided Midstream Performed By: #### A DDONUAPLUS, CUU ####[facility] [id number] [place] [id number] [facility] Leukocyte clumps [Presence] in Urine by AutomatedOrdered By: Hasmukh Vides on 11-10-2024 Leukocyte clumps Auto Ql (U) Many [LPF] High None Seen [facility] Leukocyte esterase [Presence ] in Urine by Test stripOrdered By: Hasmukh Vides on 11-10-2024 Leukocyte esterase Test strip Ql (U) 4+ Normal Negative [facility] Comment on above: Order Comment: Name Collection Type:: Clean-Voided Midstream Performed By: #### A DDONUAPLUS, CUU ####[facility] [id number] Leukocytes [#/area] in Urine sediment by Automated countOrdered By: Hasmukh Vides on 11-10-2024 WBC Auto (Urine sed) [#/Area] Innumerable [HPF] High 0-4 [facility] Leukocytes [#/volume] correc junior for nucleated erythrocytes in Blood by Automated counOrdered By: Hasmukh Vides on 11-10-2024 WBC corrected for nucl RBC Auto (Bld) [#/Vol] 6.4 10*3/uL 4.1-10.5 [facility] Leukocytes [#/volume] in Blo od by Automated countOrdered By: Hasmukh Vides on 11-10-2024 WBC (Bld) [#/Vol] 6.4 10*3/uL Normal 4.1-10.5 [facility] Comment on above: Performed By: #### B KITCHEN LEAD, HS TROP, CBC, MG, CK, CMP ####[place] [id number] Lymphocytes [#/volume] in Bl ood by Automated countOrdered By: Hasmukh Vides on 11-10-2024 Lymphocytes (Bld) [#/Vol] 1.2 10*3/uL Normal 1.00-4.8 [facility] Comment on above: Performed By: #### B KITCHEN LEAD, HS TROP, CBC, MG, CK, CMP ####[address] Lymphocytes/100 leukocytes i n Blood by Automated countOrdered By: Hasmukh Vides on 11-10-2024 Lymphocytes/100 WBC (Bld) 18.7 % Normal . [facility] Comment on above: Performed By: #### B KITCHEN LEAD, HS TROP, CBC, MG, CK, CMP ####[address] MCH [Entitic mass] by Automa junior countOrdered By: Hasmukh Vides on 11-10-2024 MCH (RBC) [Entitic mass] 27.0 pg Low 27.5-35.2 [facility] Comment on above: Performed By: #### B KITCHEN LEAD, HS TROP, CBC, MG, CK, CMP ####[address] MCHC Auto (RBC) [Mass/Vol]Or dered By: Hasmukh Vides on 11-10-2024 MCHC (RBC) [Mass/Vol] 33.4 g/dL 32.5-35.6 [facility] MCV [Entitic volume] by Auto mated countOrdered By: Hasmukh Vides on 11-10-2024 MCV (RBC) [Entitic vol] 80.8 fL Low 83.5-101 F [facility] Comment on above: Performed By: #### B KITCHEN LEAD, HS TROP, CBC, MG, CK, CMP ####[address] Magnesium [Mass/volume] in S christine or PlasmaOrdered By: Hasmukh Vides on 11-10-2024 Magnesium [Mass/Vol] 1.6 mg/dL Low 1.9-2.7 [facility] Comment on above: Result Comment: PERF ORMED BY:[address] [place], [place] [phone] MEDICAL DIRECTORREGGIE CASTANEDA M.D. Performed By: #### B KITCHEN LEAD, HS TROP, CBC, MG, CK, CMP ####[place] [address] [place] [address] [facility] Monocyte distribution width [Entitic volume] in Blood by AutomatedOrdered By: Hasmukh Vides on 11-10-2024 Monocyte distribution width Auto (Bld) [Entitic vol] 18.48 % 0.00-20.00 [facility] Monocytes [#/volume] in Bloo d by Automated countOrdered By: Hasmukh Vides on 11-10-2024 Monocytes (Bld) [#/Vol] 0.6 10*3/uL Normal 0.0-0.8 [facility] Comment on above: Performed By: #### B KITCHEN LEAD, HS TROP, CBC, MG, CK, CMP ####[place] [id number] [place] [id number] [facility] Monocytes/100 leukocytes in Blood by Automated countOrdered By: Hasmukh Vides on 11-10-2024 Monocytes/100 WBC (Bld) 9.3 % Normal . [facility] Comment on above: Performed By: #### B KITCHEN LEAD, HS TROP, CBC, MG, CK, CMP ####[place] [id number] [facility] Mucus [Presence] in Urine by AutomatedOrdered By: Hasmukh Vides on 11-10-2024 Mucus Auto Ql (U) Rare [LPF] [facility] Neutrophils [#/volume] in Bl ood by Automated countOrdered By: Hasmukh Vides on 11-10-2024 Neutrophils (Bld) [#/Vol] 4.3 10*3/uL Normal 1.8-7.7 [facility] Comment on above: Performed By: #### B KITCHEN LEAD, HS TROP, CBC, MG, CK, CMP ####[place] [id number] [facility] Neutrophils/100 leukocytes i n Blood by Automated countOrdered By: Hasmukh Vides on 11-10-2024 Neutrophils/100 WBC (Bld) 66.5 % Normal . [facility] Comment on above: Performed By: #### B KITCHEN LEAD, HS TROP, CBC, MG, CK, CMP ####[facility] [id number] Nitrite Test strip Ql (U)Ord ered By: Hasmukh Vides on 11-10-2024 Nitrite Ql (U) Positive High Negative [facility] No Panel InformationOrdered By: Hasmukh Vides on 11-10-2024 Estimated GFR (CKD-EPI) > 60.0 mL/Min [facility] Creatinine Clearance (Chem 77.17 [facility] Nucleated erythrocytes [Pres ence] in Blood by Automated countOrdered By: Hasmukh Vides on 11-10-2024 Nucleated RBC Auto Ql (Bld) 0.1 /100{WBC} 0-0.5 [facility] Platelet mean volume [Entiti c volume] in Blood by Automated countOrdered By: Hasmukh Vides on 11-10-2024 Platelet mean volume (Bld) [Entitic vol] 7.9 fL Normal 6.6-10.1 [facility] Comment on above: Performed By: #### B KITCHEN LEAD, HS TROP, CBC, MG, CK, CMP ####[facility] [id number] [address] Platelets [#/volume] in Bloo d by Automated countOrdered By: Hasmukh Vides on 11-10-2024 Platelets (Bld) [#/Vol] 262 10*3/uL Normal 150-450 [facility] Comment on above: Performed By: #### B KITCHEN LEAD, HS TROP, CBC, MG, CK, CMP ####[facility] [id number] Potassium [Moles/volume] in Serum or PlasmaOrdered By: Hasmukh Vides on 11-10-2024 Potassium [Moles/Vol] 4.1 mmol/L Normal 3.5-5.1 [facility] Comment on above: Performed By: #### B KITCHEN LEAD, HS TROP, CBC, MG, CK, CMP ####[address] Protein Test strip (U) [Mass /Vol]Ordered By: Hasmukh Vides on 11-10-2024 Protein (U) [Mass/Vol] Negative Negative [facility] Protein [Mass/volume] in Ser um or PlasmaOrdered By: Hasmukh Vides on 11-10-2024 Protein [Mass/Vol] 7.5 g/dL Normal 6.4-8.9 [facility] Comment on above: Performed By: #### B KITCHEN LEAD, HS TROP, CBC, MG, CK, CMP ####[address] Serum globulin measurement b y calculation (mass/volume)Ordered By: Hasmukh Vides on 11-10-2024 Globulin (S) [Mass/Vol] 3.6 g/dL Normal F [facility] Comment on above: Performed By: #### B KITCHEN LEAD, HS TROP, CBC, MG, CK, CMP ####[address] Serum or plasma albumin/glob ulin mass ratioOrdered By: Hasmukh Vides on 11-10-2024 Albumin/Globulin [Mass ratio] 1.1 {ratio} Normal [facility] Comment on above: Performed By: #### B KITCHEN LEAD, HS TROP, CBC, MG, CK, CMP ####[address] Serum or plasma anion gap de terminationOrdered By: Hasmukh Vides on 11-10-2024 Anion gap [Moles/Vol] 11.1 mmol/L Normal 6.0-15.0 [facility] Comment on above: Performed By: #### B KITCHEN LEAD, HS TROP, CBC, MG, CK, CMP ####[address] Sodium [Moles/volume] in Ser um or PlasmaOrdered By: Hasmukh Vides on 11-10-2024 Sodium [Moles/Vol] 133 mmol/L Low 136-145 [facility] Comment on above: Performed By: #### B KITCHEN LEAD, HS TROP, CBC, MG, CK, CMP ####[place] [id number] [place] [id number] [facility] Specific gravity Test strip (U) [Rel density]Ordered By: Hasmukh Vides on 11-10-2024 Specific gravity (U) [Rel density] 1.010 1.001-1.03 0 [facility] Troponin I High Sensitivityo n 11-10-2024 Troponin I High Sensitivity 4 Normal 0-20 [facility] Comment on above: Result Comment: The Troponin units of report have been changed to meet the Chest Pain Accreditation requirement, element EC5.M1l2. Troponin units are changed from pg/ml to ng/L. Also, the decimal is removed and results are in whole numbers.PERFORMED BY:[address] [place], [place] [phone] MEDICAL DIRECTORREGGIE CASTANEDA M.D. Performed By: #### B KITCHEN LEAD, HS TROP, CBC, MG, CK, CMP ####[address] Troponin I.cardiac [Mass/vol ume] in Serum or Plasma by Detection limit <= 0.01 ng/mLOrdered By: Hasmukh Vides on 11-10-2024 Troponin I.cardiac DL <= 0.01 ng/mL [Mass/Vol] 4 ng/L 0-20 [facility] Comment on above: The Troponin units o f report have been changed to meet the Chest Pain Accreditation requirement, element EC5.M1l2. Troponin units are changed from pg/ml to ng/L. Also, the decimal is removed and results are in whole numbers. Urea nitrogen [Mass/volume] in Serum or PlasmaOrdered By: Hasmukh Vides on 11-10-2024 Urea nitrogen [Mass/Vol] 14 mg/dL Normal 7-25 [facility] Comment on above: Performed By: #### B KITCHEN LEAD, HS TROP, CBC, MG, CK, CMP ####[place] [id number] [facility] Urine Cultureon 11-10-2024 Bacteria identified Cx Nom (U) Normal [facility] Comment on above: Performed By: #### A RADHA JORGENSENU ####[facility] [id number] [place] [address] [facility] Urine cultureOrdered By: Michael Vides on 11-10-2024 Bacteria identified Cx Nom (U) bacilli - 2 Days [facility] Urobilinogen Test strip (U) [Mass/Vol]Ordered By: Hasmukh Vides on 11-10-2024 Urobilinogen (U) [Mass/Vol] Normal mg/dL Normal [facility] pH of Urine by Test stripOrd ered By: Hasmukh Vides on 11-10-2024 pH (U) 5.5 [pH] Normal 5.0-9.0 [facility] Comment on above: Order Comment: Name Collection Type:: Clean-Voided Midstream Performed By: #### A DDONUAPLUS, CUU ####[facility] [id number] [place] [address] [facility] ECG 12 Leadon 10-31-2024 ECG revealed normal sinus rhythm with first-degree AV block, left ventricle hypertrophy with QRS widening, prolonged QT interval [facility] Work Phone: [facility] Work Phone: Provider Letteron 08-09-2024 Provider Letter Provider Letter August 09, 2024 [address]ARY MCADAMS [address] [place] [id number] : 1955 Dear Mary, We have been trying to reach you with no success. Please find enclosed PSA results. Also, at the time of your call, please provide us with your current information. Thank you for your prompt attention to this matter. Sincerely, [facility] [address] [place] [address] [facility] TRANSTHORACIC ECHO (TTE) COM PLETEon 08-09-2024 TRANSTHORACIC ECHO (TTE) COMPLETE [address], [address], [place] [address] TRANSTHORACIC ECHOCARDIOGRAM REPORT Patient Name: MARYJORDEN BOLANOSMCADAMS Reading Physician: [id number] Shannon Gonzalez [facility] Study Date: 08/09/2024 Ordering Provider: [id number] SHANNON GONZALEZ MRN/PID: [id number] Fellow: Nurse: Date of /Age: 408/18/1955 / 68 years Truck Chauffeur: Adamaris Yoder RDCS, RT(R), RDMS, RVT Gender Assigned at M Additional Staff: : Height: 182.88 cm Admit Date: Weight: 70.76 kg Admission Status: Outpatient BSA / BMI: 1.92 m2 / 21.16 Department Location: [facility] Heart kg/m2 [facility] Blood Pressure: 98 /60 mmHg Study Type: TRANSTHORACIC ECHO (TTE) COMPLETE Diagnosis/ICD: Cardiomyopathy, unspecified-I42.9 Indication: NICM CPT Codes: Echo Complete w Full Doppler-[id number] Patient History: Pertinent History: A-Fib, COPD and [...] mmHg AORTA: Asc Ao Diam 4.09 cm [id number] Shannon Gonzalez MD, FACC Electronically signed on 08/09/2024 at 5:39:23 PM * (more content not included)... Normal [facility] US Heart Transthoracicon Aortic Valve Area by Continuity of Peak Velocity 2.98 cm2 [facility] Work Phone: Aortic Valve Area by Continuity of VTI 3.33 cm2 [facility] Work Phone: [phone] AV mn grad 3 mmHg [facility] Work Phone: [phone] AV pk grad 6 mmHg [facility] Work Phone: [phone] AV pk christina 1.17 m/s [facility] Work Phone: [phone] LA vol index A/L 35.2 ml/m2 [facility] Work Phone: [phone] LV A4C EF 49.3 [facility] Work Phone: [phone] LV Biplane EF 41 % [facility] Work Phone: [phone] LV EF 50 % [facility] Work Phone: [phone] LVIDd 4.75 cm [facility] Work Phone: [phone] LVOT diam 2.49 cm [facility] Work Phone: [phone] MV avg E/e' ratio 6.26 [facility] Work Phone: [phone] MV E/A ratio 1.18 [facility] Work Phone: [phone] RV free wall pk S' 13.32 cm/s [facility] Work Phone: [phone] RVSP 34.1 mmHg [facility] Work Phone: [phone] Tricuspid annular plane systolic excursion 2.3 cm [facility] Work Phone: [phone], [address] [place] [address] TRANSTHORACIC ECHOCARDIOGRAM REPORT Patient Name: MARY Campbell Physician: [id number] Shannon Gonzalez MD, [facility] Study Date: 08/09/2024 Ordering Provider: [id number] SHANNON GONZALEZ MRN/PID: [id number] Fellow: Nurse: Date of /Age: 408/18/1955 Truck Chauffeur: Adamaris Yoder RDCS, RT(R), RDMS, RVT Gender Assigned at M Additional Staff: : Height: 182.88 cm Admit Date: Weight: 70.76 kg Admission Status: Outpatient BSA / BMI: 1.92 m2 / 21.16 Department Location: [facility] Heart kg/m2 [facility] Blood Pressure: 98 /60 mmHg Study Type: TRANSTHORACIC ECHO (TTE) COMPLETE Diagnosis/ICD: Cardiomyopathy, unspecified-I42.9 Indication: NICM CPT Codes: Echo Complete w Full Doppler-40504 Patient History: Pertinent History: A-Fib, COPD and [...] included)... Shannon Wilson M D - 08/09/2024 [facility] [address] [facility], [address], [place] [address] TRANSTHORACIC ECHOCARDIOGRAM REPORT Patient Name: MARY MCADAMS Reading Physician: [id number] Shannon Gonzalez MD, [facility] Study Date: 08/09/2024 Ordering Provider: [id number] SHANNON GONZALEZ MRN/PID: [id number] Fellow: Nurse: Date of /Age: 408/18/1955 / 68 years Truck Chauffeur: Adamaris Yoder RDCS, RT(R), RDMS, RVT Gender Assigned at Additional Staff: : Height: 182.88 cm Admit Date: Weight: 70.76 kg Admission Status: Outpatient BSA / BMI: 1.92 m2 / 21.16 Department Location: [facility] Heart kg/m2 [facility] Blood Pressure: 98 /60 mmHg Study Type: TRANSTHORACIC ECHO (TTE) COMPLETE Diagnosis/ICD: Cardiomyopathy, unspecified-I42.9 Indication: NICM CPT Codes: Echo Complete w Full Doppler-73280 Patient History: Pertinent History: A-Fib, COPD and [...] Mean P.3 mmHg (more content not included)... [facility] Work Phone: [facility] Work Phone: PSA Totalon 08-06-2024 Prostate specific Ag [Mass/Vol] 1.3 ng/mL Normal 0.1-3.5 [facility] Comment on above: Result Comment: The concentration of PSA determined by different manufacturers can vary due to differences in assay methods and reagent specificity. Values obtained from different assay methods cannot be used interchangeably. The methodology used for this result was chemiluminescence using [employer]'s Access Hybritech PSA reagent. Performed By: #### 1 [id number] #### [facility] [address] [place] [address] Ambulatory Visit Summaryon 0 08-05-2024 Ambulatory Visit Summary Ambulatory Visit Summary MARY MCADAMS Jennifer :1955 Visit Date:08/05/2024 Ambulatory Visit Instructions Your Diagnosis Incomplete bladder emptying Elevated PSA BPH with urinary obstruction Your Care Team Attending Physician - EMERSON SALMON, Clinton Hernandez Primary Care Physician - ADAM DEL VALLE [...] mg DR Tab) potassium chloride (Potassium Chloride (Hcv-Lnlq-Dmt 10) 10 mEq oral tablet, extended release) [...] Following Appointments Follow Up with EMERSON SALMON, CARYL Macedo When: Where: [facility] [address], [place] [address] [phone] You Need to Complete the Following PSA [...] or concerns Unchanged potassium chloride (Potassium Chloride (Emr-Vezn-Lbz 10) 10 mEq oral tablet, extended release) [...] the causes? (more content not included)... Normal [facility] CHEMISTRYOrdered By: SYSTEM SYSTEM on 08-05-2024 Prostate specific Ag [Mass/Vol] 1.3 ng/mL Normal 0.1 - 3.5 ng/mL [facility] Comment on above: Interpretive Data: T he concentration of PSA determined by different manufacturers can vary due to differences in assay methods and reagent specificity. Values obtained from different assay methods cannot be used interchangeably. The methodology used for this result was chemiluminescence using Marco Toldo's Access Hybritech PSA reagent. Urology Office/Clinic Noteon 08-05-2024 Urology Office/Clinic Note Urology Office/Clinic Note Chief Complaint 1 year with PSA HPI Staff 68yr old male pt here for 9mo f/u with PSA. CIC 1x per day. Pt now has an indwelling catheter. Catheter was put in during his stay at [facility] for CHF last month and after discharge he was sent to [facility] and they wanted him to keep it [...] output ~8-12oz. However had catheter placed at [facility] (was there for CHF ~3.5 wks ago) [...] on Finasteride 5mg qd at prior OV. Vardaman he was voiding well prior to catheter placement. -Cont Tamsulosin bid and Finasteride qd. Pt to call for refills. Follow-up With When Contact Information EMERSON SALMON, Clinton Hernandez, URL [facility] [address], [place] [address] [phone] Additional Instructions: 6 mos w/ PSA Patient [...] Pantoprazole [address] Tab Potassium Chloride (Zdd-Pyhp-Jyw 10) 10 mEq oral tablet, extended release, [...] Never Smo (more content not included)... Normal [facility] Comment on above: Result Comment: Elec tronically Signed By: Clinton NORMAN MD\.br\Date and Time Signed: 08/05/24 14:40 EDT\.br\Electronically Co-Signed By: Rhonda Temple\.br\Date and Time Co-Signed: 08/05/24 14:39 EDT Basic Metabolic Panelon 06-16 Anion gap [Moles/Vol] 13.9 mmol/L Normal 6.0-15.0 [facility] Comment on above: Performed By: #### B MP ####[place] [id number] [place] [id number] [facility] Calcium [Mass/Vol] 9.0 mg/dL Normal 8.6-10.3 [facility] Comment on above: Performed By: #### B MP ####[facility] [place] [address] [facility] Chloride [Moles/Vol] 99 mmol/L Normal 98-107 [facility] Comment on above: Performed By: #### B MP ####[facility] [place] [address] [facility] CO2 [Moles/Vol] 24.2 mmol/L Normal 21.0-31.0 [facility] Comment on above: Performed By: #### B MP ####[address] [address] [facility] Creatinine [Mass/Vol] 0.78 mg/dL Normal 0.70-1.30 [facility] Comment on above: Performed By: #### B MP ####[address] [address] [facility] Creatinine Clr Calc Pharmacy 81.23 Normal [facility] Comment on above: Result Comment: PERF ORMED BY:[address] [place], [place] [phone] MEDICAL DIRECTORMALLORIE GARCIA M.D. Performed By: #### B MP ####[place] [id number] [facility] GFR/1.73 sq M.predicted MDRD (S/P/Bld) [Vol rate/Area] mL/min/{1.73_m2} Normal [facility] Comment on above: Performed By: #### B MP ####[place] [id number] [facility] Glucose [Mass/Vol] 86 mg/dL Normal 70-100 [facility] Comment on above: Result Comment: [place] Glucose Reference Range is dependent on time and content of last meal. Glucose of more than 200 mg/dL in a nonstressed, ambulatory subject supports the diagnosis of Diabetes Mellitus. ADA recommended reference range Performed By: #### B MP ####[place] [id number] [facility] Potassium [Moles/Vol] 4.1 mmol/L Normal 3.5-5.1 [facility] Comment on above: Performed By: #### B MP ####[place] [id number] [facility] Sodium [Moles/Vol] 133 mmol/L Low 136-145 [facility] Comment on above: Performed By: #### B MP ####[place] [id number] [facility] Urea nitrogen [Mass/Vol] 16 mg/dL Normal 7-25 [facility] Comment on above: Performed By: #### B ####[facility] [address] [place] [address] [facility] Calcium [Mass/volume] in Ser um or PlasmaOrdered By: Ambrose Hsieh on 07-09-2024 Calcium [Mass/Vol] Calcium [Mass/volume ] in Serum or Plasma 8.6-10.3 [facility] Carbon dioxide, total [Moles /volume] in Serum or PlasmaOrdered By: Ambrose Hsieh on 07-09-2024 CO2 [Moles/Vol] Carbon dioxide, tota l [Moles/volume] in Serum or Plasma 21.0-31.0 [facility] Chloride [Moles/volume] in S christien or PlasmaOrdered By: Ambrose Hsieh on 07-09-2024 Chloride [Moles/Vol] Chloride [Moles/vol ume] in Serum or Plasma 98-107 [facility] Creatinine [Mass/volume] in Serum or PlasmaOrdered By: Ambrose Hsieh on 07-09-2024 Creatinine [Mass/Vol] Creatinine [Mass/v olume] in Serum or Plasma 0.70-1.30 [facility] ECG 12 lead ECGon 07-09-2024 ECG 12 lead ECG Normal [facility] Glucose [Mass/volume] in Ser um or PlasmaOrdered By: Ambrose Hsieh on 07-09-2024 Glucose [Mass/Vol] Glucose [Mass/volume ] in Serum or Plasma 70-100 [facility] Comment on above: ADA recommended refe rence rangeRandom Glucose Reference Range is dependent on time and content of last meal. Glucose of more than 200 mg/dL in a nonstressed, ambulatory subject supports the diagnosis of Diabetes Mellitus. No Panel InformationOrdered By: Ambrose Hsieh on 07-09-2024 Estimated GFR (CKD-EPI) > 60.0 mL/Min [facility] Creatinine Clearance (Chem 81.23 [facility] Potassium [Moles/volume] in Serum or PlasmaOrdered By: Ambrose Hsieh on 07-09-2024 Potassium [Moles/Vol] Potassium [Moles/v olume] in Serum or Plasma 3.5-5.1 [facility] Serum or plasma anion gap de terminationOrdered By: Ambrose Hsieh on 07-09-2024 Anion gap [Moles/Vol] Serum or plasma an ion gap determination 6.0-15.0 [facility] Sodium [Moles/volume] in Ser um or PlasmaOrdered By: Ambrose Hsieh on 07-09-2024 Sodium [Moles/Vol] Sodium [Moles/volume ] in Serum or Plasma Low 136-145 [facility] Urea nitrogen [Mass/volume] in Serum or PlasmaOrdered By: Ambrose Hsieh on 07-09-2024 Urea nitrogen [Mass/Vol] Urea nitrogen [Mass/volume] in Serum or Plasma 12-06 [facility] Basic Metabolic Panelon 06-16 Anion gap [Moles/Vol] 8.6 mmol/L Normal 6.0-15.0 [facility] Comment on above: Performed By: #### B MP ####[address] Calcium [Mass/Vol] 8.9 mg/dL Normal 8.6-10.3 [facility] Comment on above: Performed By: #### B MP ####[address] Chloride [Moles/Vol] 101 mmol/L Normal 98-107 [facility] Comment on above: Performed By: #### B MP ####[place] [id number] [facility] CO2 [Moles/Vol] 27.7 mmol/L Normal 21.0-31.0 [facility] Comment on above: Performed By: #### B MP ####[place] [id number] [facility] Creatinine [Mass/Vol] 0.74 mg/dL Normal 0.70-1.30 [facility] Comment on above: Performed By: #### B MP ####[place] [id number] [facility] Creatinine Clr Calc Pharmacy 83.20 Normal [facility] Comment on above: Result Comment: PERF ORMED BY:[place] [address] [place], [place] [phone] MEDICAL DIRECTORMALLORIE GARCIA M.D. Performed By: #### B MP ####[place] [address] [place] [id number] [facility] GFR/1.73 sq M.predicted MDRD (S/P/Bld) [Vol rate/Area] mL/min/{1.73_m2} Normal [facility] Comment on above: Performed By: #### B MP ####[address] [address] [facility] Glucose [Mass/Vol] 93 mg/dL Normal 70-100 [facility] Comment on above: Result Comment: [place] Glucose Reference Range is dependent on time and content of last meal. Glucose of more than 200 mg/dL in a nonstressed, ambulatory subject supports the diagnosis of Diabetes Mellitus. ADA recommended reference range Performed By: #### B MP ####[place] [id number] [facility] Potassium [Moles/Vol] 4.3 mmol/L Normal 3.5-5.1 [facility] Comment on above: Performed By: #### B MP ####[place] [id number] [facility] Sodium [Moles/Vol] 133 mmol/L Low 136-145 [facility] Comment on above: Performed By: #### B MP ####[place] [id number] [facility] Urea nitrogen [Mass/Vol] 13 mg/dL Normal 7-25 [facility] Comment on above: Performed By: #### B MP ####[place] [id number] [facility] ECG 12 lead ECGon 07-08-2024 ECG 12 lead ECG Normal [facility] Basic Metabolic Panelon 06-16 Anion gap [Moles/Vol] 9.4 mmol/L Normal 6.0-15.0 [facility] Comment on above: Performed By: #### B MP, MG ####[place] [id number] [facility] Calcium [Mass/Vol] 9.1 mg/dL Normal 8.6-10.3 [facility] Comment on above: Performed By: #### B MP, MG ####[place] [address] [place] [id number] [facility] Chloride [Moles/Vol] 103 mmol/L Normal 98-107 [facility] Comment on above: Performed By: #### B MP, MG ####[place] [id number] [facility] CO2 [Moles/Vol] 27.1 mmol/L Normal 21.0-31.0 [facility] Comment on above: Performed By: #### B MP, MG ####[address] Creatinine [Mass/Vol] 0.82 mg/dL Normal 0.70-1.30 [facility] Comment on above: Performed By: #### B MP, MG ####[place] [id number] [place] Creatinine Clr Calc Pharmacy 79.25 Normal [facility] Comment on above: Performed By: #### B MP, MG ####[place] [id number] [place] GFR/1.73 sq M.predicted MDRD (S/P/Bld) [Vol rate/Area] mL/min/{1.73_m2} Normal [facility] Comment on above: Performed By: #### B MP, MG ####[place] [id number] [facility] Glucose [Mass/Vol] 88 mg/dL Normal 70-100 [facility] Comment on above: Result Comment: [place] Glucose Reference Range is dependent on time and content of last meal. Glucose of more than 200 mg/dL in a nonstressed, ambulatory subject supports the diagnosis of Diabetes Mellitus. ADA recommended reference range Performed By: #### B MP, MG ####[place] [id number] [place] Potassium [Moles/Vol] 4.5 mmol/L Normal 3.5-5.1 [facility] Comment on above: Performed By: #### B MP, MG ####[place] [address] Sodium [Moles/Vol] 135 mmol/L Low 136-145 [facility] Comment on above: Performed By: #### B MP, MG ####[place] [address] Urea nitrogen [Mass/Vol] 13 mg/dL Normal 7-25 [facility] Comment on above: Performed By: #### B MP, MG ####[place] [address] ECG 12 lead ECGon 07-07-2024 ECG 12 lead ECG Normal [facility] Magnesiumon 07-07-2024 Magnesium [Mass/Vol] 1.6 mg/dL Low 1.9-2.7 [facility] Comment on above: Result Comment: PERF ORMED BY:[address] [place], [place] [phone] MEDICAL DIRECTORMALLORIE GARCIA M.D. Performed By: #### B MP, MG ####[place] [id number] [facility] Magnesium [Mass/volume] in S christine or PlasmaOrdered By: Ambrose Hsieh on 07-07-2024 Magnesium [Mass/Vol] Magnesium [Mass/vol ume] in Serum or Plasma Low 1.9-2.7 [facility] ECG 12 lead ECGon 07-06-2024 ECG 12 lead ECG Normal [facility] Erythrocyte distribution wid th Auto (RBC) [Ratio]Ordered By: Ambrose Hsieh on 07-06-2024 Erythrocyte distribution width (RBC) [Ratio] Erythrocyte distribution width [Ratio] by Automated count High 12.0-14.8 [facility] Hematocrit Auto (Bld) [Volum e fraction]Ordered By: Ambrose Hsieh on 07-06-2024 Hematocrit (Bld) [Volume fraction] Hematocrit [Volume Fraction] of Blood by Automated count Low 38.8-50.0 [facility] Hemoglobin [Mass/volume] in BloodOrdered By: Ambrose Hsieh on 07-06-2024 Hemoglobin (Bld) [Mass/Vol] Hemoglobin [Mass/volume] in Blood Low 13.0-17.0 [facility] Hemogram CBC Without Diffon 07-06-2024 Erythrocyte distribution width (RBC) [Ratio] 16.0 % High 12.0-14.8 [facility] Comment on above: Performed By: #### C BCNO ####[address] Hematocrit (Bld) [Volume fraction] 24.3 % Low 38.8-50.0 [facility] Comment on above: Performed By: #### C BCNO ####[address] Hemoglobin (Bld) [Mass/Vol] 8.2 g/dL Low 13.0-17.0 [facility] Comment on above: Performed By: #### C BCNO ####[address] MCH (RBC) [Entitic mass] 27.9 pg Normal 27.5-35.2 [facility] Comment on above: Performed By: #### C BCNO ####[address] MCV (RBC) [Entitic vol] 83.1 fL Low 83.5-101 [facility] Comment on above: Performed By: #### C BCNO ####[address] Mean Corpuscular HGB Conc 33.6 g/dL Normal 32.5-35.6 [facility] Comment on above: Performed By: #### C BCNO ####[address] Platelet mean volume (Bld) [Entitic vol] 7.2 fL Normal 6.6-10.1 [facility] Comment on above: Result Comment: PERF ORMED BY:[place] [address] [place], [place] [phone] MEDICAL DIRECTORMALLORIE GARCIA M.D. Performed By: #### C BCNO ####[place] [address] [place] [id number] [facility] Platelets (Bld) [#/Vol] 294 10*3/uL Normal 150-450 [facility] Comment on above: Performed By: #### C BCNO ####[place] [address] RBC (Bld) [#/Vol] 2.93 10*6/uL Low 3.90-5.60 [facility] Comment on above: Performed By: #### C BCNO ####[place] [id number] [facility] WBC (Bld) [#/Vol] 5.2 10*3/uL Normal 4.1-10.5 [facility] Comment on above: Performed By: #### C BCNO ####[place] [id number] [facility] Leukocytes [#/volume] correc junior for nucleated erythrocytes in Blood by Automated counOrdered By: Ambrose Hsieh on 07-06-2024 WBC corrected for nucl RBC Auto (Bld) [#/Vol] Leukocytes [#/volume] corrected for nucleated erythrocytes in Blood by Automated coun 4.1-10.5 [facility] MCH Auto (RBC) [Entitic mass ]Ordered By: Ambrose Gutierrezad on 07-06-2024 MCH (RBC) [Entitic mass] MCH [Entitic mass] by Automated count 27.5-35.2 [facility] MCHC Auto (RBC) [Mass/Vol]Or dered By: Ambrose Hsieh on 07-06-2024 MCHC (RBC) [Mass/Vol] MCHC [Mass/volume] by Automated count 32.5-35.6 [facility] MCV Auto (RBC) [Entitic vol] Ordered By: Ambrose Hsieh on 07-06-2024 MCV (RBC) [Entitic vol] MCV [Entitic vol ume] by Automated count Low 83.5-101 [facility] Platelet mean volume Auto (B ld) [Entitic vol]Ordered By: Ambrose Hsieh on 07-06-2024 Platelet mean volume (Bld) [Entitic vol] Platelet mean volume [Entitic volume] in Blood by Automated count 6.6-10.1 [facility] Platelets Auto (Bld) [#/Vol] Ordered By: Ambrose Hsieh on 07-06-2024 Platelets (Bld) [#/Vol] Platelets [#/vol ume] in Blood by Automated count 150-450 [facility] RBC Auto (Bld) [#/Vol]Ordere d By: Ambrose Hsieh on 07-06-2024 RBC (Bld) [#/Vol] Erythrocytes [#/volu me] in Blood by Automated count Low 3.90-5.60 [facility] ECG 12 lead ECGon 07-05-2024 ECG 12 lead ECG Normal [facility] Hemogram CBC Without Diffon 07-05-2024 Erythrocyte distribution width (RBC) [Ratio] 15.9 % High 12.0-14.8 [facility] Comment on above: Performed By: #### C BCNO ####[address] Hematocrit (Bld) [Volume fraction] 24.8 % Low 38.8-50.0 [facility] Comment on above: Performed By: #### C BCNO ####[address] Hemoglobin (Bld) [Mass/Vol] 8.4 g/dL Low 13.0-17.0 [facility] Comment on above: Performed By: #### C BCNO ####[place] [id number] [facility] MCH (RBC) [Entitic mass] 28.0 pg Normal 27.5-35.2 [facility] Comment on above: Performed By: #### C BCNO ####[place] [address] [place] [id number] [facility] MCV (RBC) [Entitic vol] 83.0 fL Low 83.5-101 [facility] Comment on above: Performed By: #### C BCNO ####[place] [address] [place] [address] [facility] Mean Corpuscular HGB Conc 33.7 g/dL Normal 32.5-35.6 [facility] Comment on above: Performed By: #### C BCNO ####[place] [address] [place] [address] [facility] Platelet mean volume (Bld) [Entitic vol] 7.0 fL Normal 6.6-10.1 [facility] Comment on above: Result Comment: PERF ORMED BY:[address] [place], [place] [phone] MEDICAL DIRECTORMALLORIE GARCIA M.D. Performed By: #### C BCNO ####[place] [address] [place] [address] [facility] Platelets (Bld) [#/Vol] 277 10*3/uL Normal 150-450 [facility] Comment on above: Performed By: #### C BCNO ####[place] [address] [place] [address] [facility] RBC (Bld) [#/Vol] 2.99 10*6/uL Low 3.90-5.60 [facility] Comment on above: Performed By: #### C BCNO ####[address] [address] [facility] WBC (Bld) [#/Vol] 4.3 10*3/uL Normal 4.1-10.5 [facility] Comment on above: Performed By: #### C BCNO ####[place] [address] [place] [address] [facility] Amphetamine Screen Ql (U)Ord ered By: Susanne Motley on 07-04-2024 Amphetamines Ql (U) Amphetamines screen Negativ e [facility] Appearance of UrineOrdered B y: Susanne Motley on 07-04-2024 Appearance (U) Urine appearance Abnormal Clear [facility] Bacteria [Presence] in Urine by AutomatedOrdered By: Susanne Motley on 07-04-2024 Bacteria Auto Ql (U) Bacteria [Presence] in Urine by Automated High None Seen [facility] Barbiturates [Presence] in U rine by Screen methodOrdered By: Susanne Motley on 07-04-2024 Barbiturates Screen Ql (U) Barbiturates [Presence] in Urine by Screen method Negative [facility] Basic Metabolic Panelon 06-16 Anion gap [Moles/Vol] 13.7 mmol/L Normal 6.0-15.0 [facility] Comment on above: Performed By: #### M G, CBC, BMP, PAB ####[address] Calcium [Mass/Vol] 8.9 mg/dL Normal 8.6-10.3 [facility] Comment on above: Performed By: #### M G, CBC, BMP, PAB ####[address] Chloride [Moles/Vol] 103 mmol/L Normal 98-107 [facility] Comment on above: Performed By: #### M G, CBC, BMP, PAB ####[place] [id number] [facility] CO2 [Moles/Vol] 22.1 mmol/L Normal 21.0-31.0 [facility] Comment on above: Performed By: #### M G, CBC, BMP, PAB ####[place] [id number] [place] Creatinine [Mass/Vol] 0.85 mg/dL Normal 0.70-1.30 [facility] Comment on above: Performed By: #### M G, CBC, BMP, PAB ####[place] [id number] [place] [facility]inine [facility] 73.90 Normal [facility] Comment on above: Performed By: #### M G, CBC, BMP, PAB ####[place] [id number] [place] GFR/1.73 sq M.predicted MDRD (S/P/Bld) [Vol rate/Area] mL/min/{1.73_m2} Normal [facility] Comment on above: Performed By: #### M G, CBC, BMP, PAB ####[place] [id number] Glucose [Mass/Vol] 77 mg/dL Normal 70-100 [facility] Comment on above: Result Comment: [place] Glucose Reference Range is dependent on time and content of last meal. Glucose of more than 200 mg/dL in a nonstressed, ambulatory subject supports the diagnosis of Diabetes Mellitus. ADA recommended reference range Performed By: #### M G, CBC, BMP, PAB ####[place] [id number] Potassium [Moles/Vol] 3.8 mmol/L Normal 3.5-5.1 [facility] Comment on above: Performed By: #### M G, CBC, BMP, PAB ####[address] Sodium [Moles/Vol] 135 mmol/L Low 136-145 [facility] Comment on above: Performed By: #### M G, CBC, BMP, PAB ####[address] Urea nitrogen [Mass/Vol] 12 mg/dL Normal 7-25 [facility] Comment on above: Performed By: #### M G, CBC, BMP, PAB ####[address] Basophils Auto (Bld) [#/Vol] Ordered By: Maricruz Godoy on 07-04-2024 Basophils (Bld) [#/Vol] Automated basophil count 0.0-0.2 [facility] Basophils/100 WBC Auto (Bld) Ordered By: Maricruz Godoy on 07-04-2024 Basophils/100 WBC (Bld) Automated basophil % . [facility] Benzodiazepines Screen Ql (U )Ordered By: Susanne Motley on 07-04-2024 Benzodiazepines Ql (U) Benzodiazepines [ Presence] in Urine by Screen method Negative [facility] Benzoylecgonine [Presence] i n Urine by Screen methodOrdered By: Susanne Motley on 07-04-2024 Benzoylecgonine Screen Ql (U) Benzoylecgonine [Presence] in Urine by Screen method Negative [facility] Bilirubin Test strip Ql (U)O rdered By: Susanne Motley on 07-04-2024 Bilirubin Ql (U) Bilirubin.total [Pre sence] in Urine by Test strip Negative [facility] Cannabinoids [Presence] in U rine by Screen methodOrdered By: Susanne Motley on 07-04-2024 Cannabinoids Screen Ql (U) Cannabinoids [Presence] in Urine by Screen method Negative [facility] Comment on above: These are unconfirme d results and should not be used for legal purposes. Drug Cut-Off Concentration: AMPH 1000 ng/mL TAHIRA 200 ng/mL KEHINDE 200 ng/mL COCM 300 ng/mL OP 300 ng/mL PCP 25 ng/mL THC 20 ng/mL Color Auto (U)Ordered By: Brenna Motley on 07-04-2024 Color (U) Color of Urine by Auto Yellow Fi [facility] Complete Blood Count Auto Di ffon 07-04-2024 Basophils (Bld) [#/Vol] 0.0 10*3/uL Normal 0.0-0.2 [facility] Comment on above: Result Comment: PERF ORMED BY:[address] [place], [place] [phone] MEDICAL DIRECTORMALLORIE GARCIA M.D. Performed By: #### M G, CBC, BMP, PAB ####[place] [id number] [facility] Basophils/100 WBC (Bld) 0.5 % Normal . [facility] Comment on above: Performed By: #### M G, CBC, BMP, PAB ####[address] [address] [facility] Eosinophils (Bld) [#/Vol] 0.2 10*3/uL Normal 0.0-0.45 [facility] Comment on above: Performed By: #### M G, CBC, BMP, PAB ####[address] [address] [place] Eosinophils/100 WBC (Bld) 3.2 % Normal . [facility] Comment on above: Performed By: #### M G, CBC, BMP, PAB ####[address] Erythrocyte distribution width (RBC) [Ratio] 16.2 % High 12.0-14.8 [facility] Comment on above: Performed By: #### M G, CBC, BMP, PAB ####[address] Hematocrit (Bld) [Volume fraction] 26.0 % Low 38.8-50.0 [facility] Comment on above: Performed By: #### M G, CBC, BMP, PAB ####[address] Hemoglobin (Bld) [Mass/Vol] 8.8 g/dL Low 13.0-17.0 [facility] Comment on above: Performed By: #### M G, CBC, BMP, PAB ####[address] Lymphocytes (Bld) [#/Vol] 0.7 10*3/uL Low 1.00-4.8 [facility] Comment on above: Performed By: #### M G, CBC, BMP, PAB ####[address] Lymphocytes/100 WBC (Bld) 12.4 % Normal . [facility] Comment on above: Performed By: #### M G, CBC, BMP, PAB ####[address] MCH (RBC) [Entitic mass] 28.0 pg Normal 27.5-35.2 [facility] Comment on above: Performed By: #### M G, CBC, BMP, PAB ####[address] MCV (RBC) [Entitic vol] 83.4 fL Low 83.5-101 [facility] Comment on above: Performed By: #### M G, CBC, BMP, PAB ####[address] Mean Corpuscular HGB Conc 33.6 g/dL Normal 32.5-35.6 [facility] Comment on above: Performed By: #### M G, CBC, BMP, PAB ####[address] Monocytes (Bld) [#/Vol] 0.7 10*3/uL Normal 0.0-0.8 [facility] Comment on above: Performed By: #### M G, CBC, BMP, PAB ####[address] Monocytes/100 WBC (Bld) 12.3 % Normal . [facility] Comment on above: Performed By: #### M G, CBC, BMP, PAB ####[address] Neutrophils (Bld) [#/Vol] 3.9 10*3/uL Normal 1.8-7.7 [facility] Comment on above: Performed By: #### M G, CBC, BMP, PAB ####[address] Neutrophils/100 WBC (Bld) 71.6 % Normal . [facility] Comment on above: Performed By: #### M G, CBC, BMP, PAB ####[address] NRBC% 0.1 /100{WBC} Normal 0-0.5 [facility] Comment on above: Performed By: #### M G, CBC, BMP, PAB ####[address] Platelet mean volume (Bld) [Entitic vol] 7.6 fL Normal 6.6-10.1 [facility] Comment on above: Performed By: #### M G, CBC, BMP, PAB ####[address] Platelets (Bld) [#/Vol] 296 10*3/uL Normal 150-450 [facility] Comment on above: Performed By: #### M G, CBC, BMP, PAB ####[place] [id number] [facility] RBC (Bld) [#/Vol] 3.12 10*6/uL Low 3.90-5.60 [facility] Comment on above: Performed By: #### M G, CBC, BMP, PAB ####[place] [id number] [facility] WBC (Bld) [#/Vol] 5.4 10*3/uL Normal 4.1-10.5 [facility] Comment on above: Performed By: #### M G, CBC, BMP, PAB ####[address] Crystals [Presence] in Urine by AutomatedOrdered By: Susanne Motley on 07-04-2024 Crystals Auto Ql (U) Crystals [Presence] in Urine by Automated [facility] Dipstick and Microscopicon 0 07-04-2024 Appearance (U) Turbid Critically abnormal Clear [facility] Comment on above: Order Comment: Name Collection Type:: Straight Catheter Performed By: #### C UU, ADDONUAPLUS ####[place] [id number] [facility] Bacteria,Urine 4+ High None Seen [facility] Comment on above: Order Comment: Name Collection Type:: Straight Catheter Performed By: #### C UU, ADDONUAPLUS ####[place] [id number] [facility] Bilirubin,Urine Negative Normal Negative [facility] Comment on above: Order Comment: Name Collection Type:: Straight Catheter Performed By: #### C UU, ADDONUAPLUS ####[place] [id number] [facility] Budding Yeast,Urine 3+ High None Seen [facility] Comment on above: Order Comment: Name Collection Type:: Straight Catheter Performed By: #### C UU, ADDONUAPLUS ####[address] [address] [facility] Color (U) Yellow Normal Yellow [facility] Comment on above: Order Comment: Name Collection Type:: Straight Catheter Performed By: #### C UU, ADDONUAPLUS ####[address] [address] [facility] Glucose Ql (U) Normal Normal Normal [facility] Comment on above: Order Comment: Name Collection Type:: Straight Catheter Performed By: #### C UU, ADDONUAPLUS ####[address] [address] [place] Hyaline Casts,Urine None Normal 0-8 [facility] Comment on above: Order Comment: Name Collection Type:: Straight Catheter Performed By: #### C UU, ADDONUAPLUS ####[address] [address] [facility] Ketones Ql (U) Negative Normal Negative [facility] Comment on above: Order Comment: Name Collection Type:: Straight Catheter Performed By: #### C UU, ADDONUAPLUS ####[address] [address] [facility] Leukocyte esterase Test strip Ql (U) 4+ High Negative [facility] Comment on above: Order Comment: Name Collection Type:: Straight Catheter Performed By: #### C UU, ADDONUAPLUS ####[address] [address] [place] Nitrite,Urine Negative Normal Negative [facility] Comment on above: Order Comment: Name Collection Type:: Straight Catheter Performed By: #### C UU, ADDONUAPLUS ####[address] [address] [place] Non-Squamous Epithelial Cell,U 3-4 High None Seen [facility] Comment on above: Order Comment: Name Collection Type:: Straight Catheter Performed By: #### C UU, ADDONUAPLUS ####[address] [address] [place] Occult Blood,Urine 3+ High Negative [facility] Comment on above: Order Comment: Name Collection Type:: Straight Catheter Result Comment: PERF ORMED BY:[place] [address] [address] [place], [place] [phone] MEDICAL DIRECTORMALLORIE GARCIA M.D. Performed By: #### C UU, ADDONUAPLUS ####[address] [address] [facility] Othe Crystals,Urine 1+ Normal [facility] Comment on above: Order Comment: Name Collection Type:: Straight Catheter Performed By: #### C UU, ADDONUAPLUS ####[address] [address] [facility] pH (U) 6.0 [pH] Normal 5.0-9.0 [facility] Comment on above: Order Comment: Name Collection Type:: Straight Catheter Performed By: #### C UU, ADDONUAPLUS ####[place] [id number] [facility] Protein (U) [Mass/Vol] 30 mg/dL High Negative [facility] Comment on above: Order Comment: Name Collection Type:: Straight Catheter Performed By: #### C UU, ADDONUAPLUS ####[place] [id number] [facility] RBC,Urine Innumerable High 0-4 [facility] Comment on above: Order Comment: Name Collection Type:: Straight Catheter Performed By: #### C UU, ADDONUAPLUS ####[place] [id number] [facility] Specificy [place],Urine 1.036 High 1.00 1-1.03 0 [facility] Comment on above: Order Comment: Name Collection Type:: Straight Catheter Performed By: #### C UU, ADDONUAPLUS ####[place] [id number] [facility] Sperm,Urine 5-9 High 0-2 [facility] Comment on above: Order Comment: Name Collection Type:: Straight Catheter Result Comment: PERF ORMED BY:[place] [address] [place], [place] [phone] MEDICAL DIRECTORMALLORIE GARCIA M.D. Performed By: #### C UU, ADDONUAPLUS ####[address] Urobilinogen,Urine Normal Normal Normal [facility] Comment on above: Order Comment: Name Collection Type:: Straight Catheter Performed By: #### C UU, ADDONUAPLUS ####[address] WBC CLUMP, Urine Many High None Seen [facility] Comment on above: Order Comment: Name Collection Type:: Straight Catheter Performed By: #### C UU, ADDONUAPLUS ####[address] WBC,Urine Innumerable High 0-4 [facility] Comment on above: Order Comment: Name Collection Type:: Straight Catheter Performed By: #### C UU, ADDONUAPLUS ####[address] Drug Screen,Urineon 07-04-19 Amphetamine Screen,Urine Negative Normal Negative [facility] Comment on above: Performed By: #### U RDS ####[address] Barbiturate Screen,Urine Negative Normal Negative [facility] Comment on above: Performed By: #### U RDS ####[address] Benzodiazepines Screen,Urine Negative Normal Negative [facility] Comment on above: Performed By: #### U RDS ####[address] Cannabinoid Screen,Urine Negative Normal Negative [facility] Comment on above: Result Comment: Thes e are unconfirmed results and should not be used for legal purposes. Drug Cut-Off Concentration: AMPH 1000 ng/mL TAHIRA 200 ng/mL KEHINDE 200 ng/mL COCM 300 ng/mL OP 300 ng/mL PCP 25 ng/mL THC 20 ng/mLPERFORMED BY:[address], [place] [phone] MEDICAL DIRECTORMALLORIE GARCIA M.D. Performed By: #### U RDS ####[facility] [place] [address] [facility] Cocaine Screen,Urine Negative Normal Negative [facility] Comment on above: Performed By: #### U RDS ####[facility] [place] [id number] [facility] Opiate Screen,Urine Negative Normal Negative [facility] Comment on above: Performed By: #### U RDS ####[facility] [place] [id number] [facility] Phencyclidine Screen,Urine Negative Normal Negative [facility] Comment on above: Performed By: #### U RDS ####[facility] [place] [id number] [facility] ECG 12 lead ECGon 07-04-2024 ECG 12 lead ECG Normal [facility] Eosinophils Auto (Bld) [#/Vo l]Ordered By: Maricruz Godoy on 07-04-2024 Eosinophils (Bld) [#/Vol] Automated eosinophil count 0.0-0.45 [facility] Eosinophils/100 WBC Auto (Bl d)Ordered By: Maricruz Godoy on 07-04-2024 Eosinophils/100 WBC (Bld) Automated eosinophil % . [facility] Epithelial cells.non-squamou s [#/area] in Urine sediment by Automated countOrdered By: Susanne Motley on 07-04-2024 Epithelial cells.non-squamous Auto (Urine sed) [#/Area] Epithelial cells.non-squamous [#/area] in Urine sediment by Automated count High None Seen [facility] Epithelial cells.squamous [# /area] in Urine sediment by Automated countOrdered By: Susanne Motley on 07-04-2024 Epithelial cells.squamous Auto (Urine sed) [#/Area] Epithelial cells.squamous [#/area] in Urine sediment by Automated count [facility] Erythrocytes [#/area] in Uri ne sediment by Automated countOrdered By: Susanne Motley on 07-04-2024 RBC Auto (Urine sed) [#/Area] Erythrocytes [#/area] in Urine sediment by Automated count High 0-4 [facility] Glucose [Mass/volume] in Uri ne by Test stripOrdered By: Susanne Motley on 07-04-2024 Glucose Test strip (U) [Mass/Vol] Glucose [Mass/volume] in Urine by Test strip Normal [facility] Hemoglobin Test strip Ql (U) Ordered By: Susanne Motley on 07-04-2024 Hemoglobin Ql (U) Hemoglobin [Presence ] in Urine by Test strip High Negative [facility] Hyaline casts [#/area] in Ur ine sediment by Automated countOrdered By: Susanne Motley on 07-04-2024 Hyaline casts Auto (Urine sed) [#/Area] Hyaline casts [#/area] in Urine sediment by Automated count 0-8 [facility] Ketones Test strip Ql (U)Ord ered By: Susanne Motley on 07-04-2024 Ketones Ql (U) Ketones [Presence] i n Urine by Test strip Negative [facility] Leukocyte clumps [Presence] in Urine by AutomatedOrdered By: Susanne Motley on 07-04-2024 Leukocyte clumps Auto Ql (U) Leukocyte clumps [Presence] in Urine by Automated High None Seen [facility] Leukocyte esterase [Presence ] in Urine by Test stripOrdered By: Susanne Motley on 07-04-2024 Leukocyte esterase Test strip Ql (U) Leukocyte esterase [Presence] in Urine by Test strip High Negative [facility] Leukocytes [#/area] in Urine sediment by Automated countOrdered By: Susanne Motley on 07-04-2024 WBC Auto (Urine sed) [#/Area] Leukocytes [#/area] in Urine sediment by Automated count High 0-4 [facility] Lymphocytes Auto (Bld) [#/Vo l]Ordered By: Maricruz Godoy on 07-04-2024 Lymphocytes (Bld) [#/Vol] Lymphocytes [#/volume] in Blood by Automated count Low 1.00-4.8 [facility] Lymphocytes/100 WBC Auto (Bl d)Ordered By: Maricruz Godoy on 07-04-2024 Lymphocytes/100 WBC (Bld) Lymphocytes/100 leukocytes in Blood by Automated count . [facility] Magnesiumon 07-04-2024 Magnesium [Mass/Vol] 1.9 mg/dL Normal 1.9-2.7 [facility] Comment on above: Performed By: #### M G, CBC, BMP, PAB ####[facility] [place] [address] [facility] Monocytes Auto (Bld) [#/Vol] Ordered By: Maricruz Godoy on 07-04-2024 Monocytes (Bld) [#/Vol] Automated blood monocyte count 0.0-0.8 [facility] Monocytes/100 WBC Auto (Bld) Ordered By: Maricruz Godoy on 07-04-2024 Monocytes/100 WBC (Bld) Automated monocyte % . [facility] Neutrophils Auto (Bld) [#/Vo l]Ordered By: Maricruz Godoy on 07-04-2024 Neutrophils (Bld) [#/Vol] Neutrophils [#/volume] in Blood by Automated count 1.8-7.7 [facility] Neutrophils/100 WBC Auto (Bl d)Ordered By: Maricruz Godoy on 07-04-2024 Neutrophils/100 WBC (Bld) Automated neutrophil % . [facility] Nitrite Test strip Ql (U)Ord ered By: Susanne Motley on 07-04-2024 Nitrite Ql (U) Nitrite [Presence] i n Urine by Test strip Negative [facility] Nucleated erythrocytes [Pres ence] in Blood by Automated countOrdered By: Maricruz Godoy on 07-04-2024 Nucleated RBC Auto Ql (Bld) Nucleated erythrocytes [Presence] in Blood by Automated count 0-0.5 [facility] Opiates [Presence] in Urine by Screen methodOrdered By: Susanne Motley on 07-04-2024 Opiates Screen Ql (U) Opiates [Presence] in Urine by Screen method Negative [facility] Phencyclidine Screen Ql (U)O rdered By: Susanne Motley on 07-04-2024 Phencyclidine Ql (U) Phencyclidine [Pres ence] in Urine by Screen method Negative [facility] Prealbuminon 07-04-2024 Prealbumin [Mass/Vol] 4.2 mg/dL Low 17.0-34.0 [facility] Comment on above: Result Comment: PERF ORMED BY:[facility] [place], [place] [phone] MEDICAL DIRECTORMALLORIE GARCIA M.D. Performed By: #### M G, CBC, BMP, PAB ####[facility] [id number] [place] [address] [facility] Prealbumin [Mass/volume] in Serum or PlasmaOrdered By: Maricruz Godoy on 07-04-2024 Prealbumin [Mass/Vol] Prealbumin [Mass/v olume] in Serum or Plasma Low 17.0-34.0 [facility] Protein Test strip (U) [Mass /Vol]Ordered By: Susanne Motley on 07-04-2024 Protein (U) [Mass/Vol] Protein [Mass/vol ume] in Urine by Test strip High Negative [facility] Specific gravity Test strip (U) [Rel density]Ordered By: Susanne Motley on 07-04-2024 Specific gravity (U) [Rel density] Specific gravity of Urine by Test strip High 1.001-1.03 0 [facility] Spermatozoa [#/area] in Urin e sediment by Automated countOrdered By: Susanne Motley on 07-04-2024 Spermatozoa Auto (Urine sed) [#/Area] Spermatozoa [#/area] in Urine sediment by Automated count High 0-2 [facility] US venous duplex LE BIon US venous duplex LE BI Normal [facility] Urine Cultureon 07-04-2024 Bacteria identified Cx Nom (U) Normal [facility] Comment on above: Performed By: #### C UU, ADDONUAPLUS ####[facility] [id number] [place] [address] [facility] Urine cultureOrdered By: Jose Rafael Motley on 07-04-2024 Bacteria identified Cx Nom (U) Group B Strep (Streptococcus agalactiae) Abnormal [facility] Urobilinogen Test strip (U) [Mass/Vol]Ordered By: Susanne Motley on 07-04-2024 Urobilinogen (U) [Mass/Vol] Urobilinogen [Mass/volume] in Urine by Test strip Normal [facility] WBC Auto (Bld) [#/Vol]Ordere d By: Maricruz Godoy on 07-04-2024 WBC (Bld) [#/Vol] Leukocytes [#/volume ] in Blood by Automated count 4.1-10.5 [facility] Yeast.budding [Presence] in Urine by Computer assisted methodOrdered By: Susanne Motley on 07-04-2024 Yeast.budding Computer assisted Ql (U) Yeast.budding [Presence] in Urine by Computer assisted method High None Seen [facility] pH Test strip (U)Ordered By: Susanne Motley on 07-04-2024 pH (U) pH of Urine by Test strip 5.0-9.0 [facility] Acetaminophenon 07-03-2024 Acetaminophen [Mass/Vol] 0.1 ug/mL Low 10.0-30.0 [facility] Comment on above: Result Comment: PERF ORMED BY:[facility] [place], [place] [phone] MEDICAL DIRECTORMALLORIE GARCIA M.D. Performed By: #### D DIMER, ANGELITA, TSH3, ACET, T4F, ETOH, MG, HS TROP, PTT ####[facility] [place] [id number] [facility] Acetaminophen [Mass/volume] in Serum or PlasmaOrdered By: Susanne Motley on 07-03-2024 Acetaminophen [Mass/Vol] Acetaminophen [Mass/volume] in Serum or Plasma Low 10.0-30.0 [facility] Alanine aminotransferase [En zymatic activity/volume] in Serum or PlasmaOrdered By: Susanne Motley on 07-03-2024 ALT [Catalytic activity/Vol] Alanine aminotransferase [Enzymatic activity/volume] in Serum or Plasma 7-52 [facility] Albumin [Mass/volume] in Ser um or Plasma by Bromocresol green (BCG) dye binding methoOrdered By: Susanne Motley on 07-03-2024 Albumin BCG dye [Mass/Vol] Albumin [Mass/volume] in Serum or Plasma by Bromocresol green (BCG) dye binding metho 3.5-5.7 [facility] Alkaline phosphatase [Enzyma tic activity/volume] in Serum or PlasmaOrdered By: Susanne Motley on 07-03-2024 ALP [Catalytic activity/Vol] Alkaline phosphatase [Enzymatic activity/volume] in Serum or Plasma High 34-104 [facility] Aspartate aminotransferase [ Enzymatic activity/volume] in Serum or PlasmaOrdered By: Susanne Motley on 07-03-2024 AST [Catalytic activity/Vol] Aspartate aminotransferase [Enzymatic activity/volume] in Serum or Plasma 13-39 [facility] Basophils Auto (Bld) [#/Vol] Ordered By: Susanne Motley on 07-03-2024 Basophils (Bld) [#/Vol] Automated basophil count 0.0-0.2 [facility] Basophils/100 WBC Auto (Bld) Ordered By: Susanne Motley on 07-03-2024 Basophils/100 WBC (Bld) Automated basophil % . [facility] Bilirubin.total [Mass/volume ] in Serum or PlasmaOrdered By: Susanne Motley on 07-03-2024 Bilirubin [Mass/Vol] Bilirubin.total [Mass/volume] in Serum or Plasma 0.3-1.0 [facility] COVID Cepheid NegativeOrdere d By: Susanne Motley on 07-03-2024 SARS-CoV-2 (COVID-19) Ab IA Ql COVID Cepheid Negative [facility] Comment on above: This is a duplicate Cepheid Xpert Xpress CoV-2/Flu/RSV Plus RNA by RT-PCR result to be used for statistical tracking purpose only. COVID-19 / Flu A/B / RSV PCR on 07-03-2024 SARS-CoV-2 (COVID-19) RNA HOWIE+probe Ql (Unsp spec) Normal [facility] Comment on above: Performed By: #### C OVID19 FLU RSV, CEPHEID NEG ####[facility] [id number] [place] [address] [facility] CT abdomen pelvis w conon CT abdomen pelvis w con Normal [facility] angio chest PE protocolon 07-03-2024 CT angio chest PE protocol Normal [facility] CT head/brain wo conon 07-03 CT head/brain wo con Normal [facility] Calcium [Mass/volume] in Ser um or PlasmaOrdered By: Susanne Motley on 07-03-2024 Calcium [Mass/Vol] Calcium [Mass/volume ] in Serum or Plasma 8.6-10.3 [facility] Carbon dioxide, total [Moles /volume] in Serum or PlasmaOrdered By: Susanne Motley on 07-03-2024 CO2 [Moles/Vol] Carbon dioxide, tota l [Moles/volume] in Serum or Plasma 21.0-31.0 [facility] Cepheid COVID PCR Negativeon 07-03-2024 SARS-CoV-2 (COVID-19) RNA HOWIE+probe Ql (Unsp spec) Negative Normal Negative [facility] Group Comment on above: Result Comment: This is a duplicate CepEssensiumid Xpert Xpress CoV-2/Flu/RSV Plus RNA by RT-PCR result to be used for statistical tracking purpose only.PERFORMED BY:[address] [address] [place], [place] [phone] MEDICAL DIRECTORMALLORIE GARCIA M.D. Performed By: #### C OVID19 FLU RSV, CEPHEID NEG ####[address] [address] [place] Chloride [Moles/volume] in S christine or PlasmaOrdered By: Susanne Motley on 07-03-2024 Chloride [Moles/Vol] Chloride [Moles/vol ume] in Serum or Plasma 98-107 [facility] Complete Blood Count Auto Di ffon 07-03-2024 Basophils (Bld) [#/Vol] 0.0 10*3/uL Normal 0.0-0.2 [facility] Comment on above: Result Comment: PERF ORMED BY:[address] [address] [place], [place] [phone] MEDICAL DIRECTORMALLORIE GARCIA M.D. Performed By: #### C MP, CBC ####[address] [address] [place] Basophils/100 WBC (Bld) 0.7 % Normal . [facility] Comment on above: Performed By: #### C MP, CBC ####[address] [address] [place] Eosinophils (Bld) [#/Vol] 0.2 10*3/uL Normal 0.0-0.45 [facility] Comment on above: Performed By: #### C MP, CBC ####[address] Eosinophils/100 WBC (Bld) 2.7 % Normal . [facility] Comment on above: Performed By: #### C MP, CBC ####[address] Erythrocyte distribution width (RBC) [Ratio] 16.2 % High 12.0-14.8 [facility] Comment on above: Performed By: #### C MP, CBC ####[address] Hematocrit (Bld) [Volume fraction] 30.7 % Low 38.8-50.0 [facility] Comment on above: Performed By: #### C MP, CBC ####[address] Hemoglobin (Bld) [Mass/Vol] 10.3 g/dL Low 13.0-17.0 [facility] Comment on above: Performed By: #### C MP, CBC ####[address] Lymphocytes (Bld) [#/Vol] 0.7 10*3/uL Low 1.00-4.8 [facility] Comment on above: Performed By: #### C MP, CBC ####[address] Lymphocytes/100 WBC (Bld) 12.4 % Normal . [facility] Comment on above: Performed By: #### C MP, CBC ####[address] MCH (RBC) [Entitic mass] 28.1 pg Normal 27.5-35.2 [facility] Comment on above: Performed By: #### C MP, CBC ####[address] MCV (RBC) [Entitic vol] 83.7 fL Normal 83.5-101 [facility] Physician [facility] Comment on above: Performed By: #### C MP, CBC ####[address] Mean Corpuscular HGB Conc 33.6 g/dL Normal 32.5-35.6 [facility] Comment on above: Performed By: #### C MP, CBC ####[address] Monocytes (Bld) [#/Vol] 0.6 10*3/uL Normal 0.0-0.8 [facility] Comment on above: Performed By: #### C MP, CBC ####[address] Monocytes/100 WBC (Bld) 18.01 % Normal 0.00-20.00 [facility] Physician [facility] Comment on above: Performed By: #### C MP, CBC ####[address] Monocytes/100 WBC (Bld) 9.9 % Normal . [facility] Physician [facility] Comment on above: Performed By: #### C MP, CBC ####[address] Neutrophils (Bld) [#/Vol] 4.3 10*3/uL Normal 1.8-7.7 [facility] Comment on above: Performed By: #### C MP, CBC ####[address] Neutrophils/100 WBC (Bld) 74.3 % Normal . [facility] Comment on above: Performed By: #### C MP, CBC ####[address] NRBC% 0.0 /100{WBC} Normal 0-0.5 [facility] Comment on above: Performed By: #### C MP, CBC ####[address] Platelet mean volume (Bld) [Entitic vol] 7.7 fL Normal 6.6-10.1 [facility] Comment on above: Performed By: #### C MP, CBC ####[address] Platelets (Bld) [#/Vol] 327 10*3/uL Normal 150-450 [facility] Comment on above: Performed By: #### C MP, CBC ####[address] RBC (Bld) [#/Vol] 3.67 10*6/uL Low 3.90-5.60 [facility] Comment on above: Performed By: #### C MP, CBC ####[address] WBC (Bld) [#/Vol] 5.8 10*3/uL Normal 4.1-10.5 [facility] Comment on above: Performed By: #### C MP, CBC ####[address] Comprehensive Metabolic Pane juliana 07-03-2024 Albumin [Mass/Vol] 3.8 g/dL Normal 3.5-5.7 [facility] Comment on above: Performed By: #### C MP, CBC ####[address] Albumin/Globulin [Mass ratio] 0.9 {ratio} Normal [facility] Comment on above: Performed By: #### C MP, CBC ####[address] ALP [Catalytic activity/Vol] 124 U/L High 34-104 [facility] Comment on above: Performed By: #### C MP, CBC ####[place] [id number] [facility] ALT [Catalytic activity/Vol] 10 U/L Normal 7-52 [facility] Comment on above: Performed By: #### C MP, CBC ####[address] Anion gap [Moles/Vol] 14.5 mmol/L Normal 6.0-15.0 [facility] Comment on above: Performed By: #### C MP, CBC ####[address] AST [Catalytic activity/Vol] 18 U/L Normal 13-39 [facility] Comment on above: Performed By: #### C MP, CBC ####[address] Bilirubin [Mass/Vol] 0.9 mg/dL Normal 0.3-1.0 [facility] Comment on above: Performed By: #### C MP, CBC ####[address] Calcium [Mass/Vol] 9.7 mg/dL Normal 8.6-10.3 [facility] Comment on above: Performed By: #### C MP, CBC ####[address] Chloride [Moles/Vol] 99 mmol/L Normal 98-107 [facility] Comment on above: Performed By: #### C MP, CBC ####[address] CO2 [Moles/Vol] 24.4 mmol/L Normal 21.0-31.0 [facility] Comment on above: Performed By: #### C MP, CBC ####[address] Creatinine [Mass/Vol] 1.12 mg/dL Normal 0.70-1.30 [facility] Comment on above: Performed By: #### C MP, CBC ####[address] Creatinine Clr Calc Pharmacy 59.91 Normal [facility] Comment on above: Result Comment: PERF ORMED BY:[address] [place], [place] [phone] MEDICAL DIRECTORMOHAMED M EL-FAKHARANY M.D. Performed By: #### C MP, CBC ####[address] [address] [facility] GFR/1.73 sq M.predicted MDRD (S/P/Bld) [Vol rate/Area] mL/min/{1.73_m2} Normal [facility] Comment on above: Performed By: #### C MP, CBC ####[place] [id number] [facility] Globulin (S) [Mass/Vol] 4.1 g/dL Normal [facility] Comment on above: Performed By: #### C MP, CBC ####[place] [id number] [facility] Glucose [Mass/Vol] 107 mg/dL High 70-100 [facility] Comment on above: Result Comment: [facility] Glucose Reference Range is dependent on time and content of last meal. Glucose of more than 200 mg/dL in a nonstressed, ambulatory subject supports the diagnosis of Diabetes Mellitus. ADA recommended reference range Performed By: #### C MP, CBC ####[place] [id number] [facility] Potassium [Moles/Vol] 3.9 mmol/L Normal 3.5-5.1 [facility] Comment on above: Performed By: #### C MP, CBC ####[place] [id number] [facility] Protein [Mass/Vol] 7.9 g/dL Normal 6.4-8.9 [facility] Comment on above: Performed By: #### C MP, CBC ####[place] [id number] [facility] Sodium [Moles/Vol] 134 mmol/L Low 136-145 [facility] Comment on above: Performed By: #### C MP, CBC ####[place] [id number] [facility] Urea nitrogen [Mass/Vol] 15 mg/dL Normal 7-25 [facility] Comment on above: Performed By: #### C MP, CBC ####[address] [place] [address] [facility] Creatinine [Mass/volume] in Serum or PlasmaOrdered By: Susanne Motley on 07-03-2024 Creatinine [Mass/Vol] Creatinine [Mass/v olume] in Serum or Plasma 0.70-1.30 [facility] D-Dimer High Sensitivityon 0 07-03-2024 D-Dimer High Sensitivity 462 ng/mL High 0-243 [facility] Comment on above: Result Comment: The reference [...] coagulation studies. Please contact the laboratory at [phone] for redraw instructions.PERFORMED BY:[address] [place], [place] [phone] MEDICAL DIRECTORMALLORIE GARCIA M.D. Performed By: #### D DIMER, ANGELITA, TSH3, ACET, T4F, ETOH, MG, HS TROP, PTT ####[address] [address] [facility] ECG 12 lead ECGon 07-03-2024 ECG 12 lead ECG Normal [facility] ECG 12 lead ECG Normal [facility] Eosinophils Auto (Bld) [#/Vo l]Ordered By: Susanen Motley on 07-03-2024 Eosinophils (Bld) [#/Vol] Automated eosinophil count 0.0-0.45 [facility] Eosinophils/100 WBC Auto (Bl d)Ordered By: Susanne Motley on 07-03-2024 Eosinophils/100 WBC (Bld) Automated eosinophil % . [facility] Erythrocyte distribution wid th Auto (RBC) [Ratio]Ordered By: Susanne Motley on 07-03-2024 Erythrocyte distribution width (RBC) [Ratio] Erythrocyte distribution width [Ratio] by Automated count High 12.0-14.8 [facility] Ethanol [Mass/volume] in Ser um or PlasmaOrdered By: Susanne Motley on 07-03-2024 Ethanol [Mass/Vol] Ethanol [Mass/volume ] in Serum or Plasma [facility] Comment on above: Test not performed Ethyl Alcohol Profileon 06-15 Ethanol [Mass/Vol] mg/dL Normal [facility] Comment on above: Performed By: #### D DIMER, ANGELITA, TSH3, ACET, T4F, ETOH, MG, HS TROP, PTT ####[place] [id number] [place] [id number] [facility] Percent Ethanol Not performed Normal [facility] Comment on above: Result Comment: PERF ORMED BY:[address] [place], [place] [phone] MEDICAL DIRECTORMALLORIE GARCIA M.D. Performed By: #### D DIMER, ANGELITA, TSH3, ACET, T4F, ETOH, MG, HS TROP, PTT ####[place] [id number] [facility] Fibrin D-dimer [Presence] in Platelet poor plasma by Latex agglutinationOrdered By: Susanne Motley on 07-03-2024 Fibrin D-dimer LA Ql (PPP) Fibrin D-dimer [Presence] in Platelet poor plasma by Latex agglutination High 0-243 [facility] Comment on above: The reference range [...] coagulation studies. Please contact the laboratory at [phone] for redraw instructions. Free T4 (Free Thyroxine)on 0 07-03-2024 Free T4 [Mass/Vol] 1.31 ng/dL High 0.61-1.12 [facility] Comment on above: Performed By: #### D DIMER, ANGELITA, TSH3, ACET, T4F, ETOH, MG, HS TROP, PTT ####[facility] [id number] [place] [address] [facility] Globulin Calc (S) [Mass/Vol] Ordered By: Susanne Motley on 07-03-2024 Globulin (S) [Mass/Vol] Serum globulin m easurement by calculation (mass/volume) [facility] Glucose [Mass/volume] in Ser um or PlasmaOrdered By: Susanne Motley on 07-03-2024 Glucose [Mass/Vol] Glucose [Mass/volume ] in Serum or Plasma High 70-100 [facility] Comment on above: ADA recommended refe rence rangeRandom Glucose Reference Range is dependent on time and content of last meal. Glucose of more than 200 mg/dL in a nonstressed, ambulatory subject supports the diagnosis of Diabetes Mellitus. Hematocrit Auto (Bld) [Volum e fraction]Ordered By: Susanne Motley on 07-03-2024 Hematocrit (Bld) [Volume fraction] Hematocrit [Volume Fraction] of Blood by Automated count Low 38.8-50.0 [facility] Hemoglobin [Mass/volume] in BloodOrdered By: Susanne Motley on 07-03-2024 Hemoglobin (Bld) [Mass/Vol] Hemoglobin [Mass/volume] in Blood Low 13.0-17.0 [facility] Leukocytes [#/volume] correc junior for nucleated erythrocytes in Blood by Automated counOrdered By: Susanne Motley on 07-03-2024 WBC corrected for nucl RBC Auto (Bld) [#/Vol] Leukocytes [#/volume] corrected for nucleated erythrocytes in Blood by Automated coun 4.1-10.5 [facility] Lymphocytes Auto (Bld) [#/Vo l]Ordered By: Susanne Motley on 07-03-2024 Lymphocytes (Bld) [#/Vol] Lymphocytes [#/volume] in Blood by Automated count Low 1.00-4.8 [facility] Lymphocytes/100 WBC Auto (Bl d)Ordered By: Susanne Motley on 07-03-2024 Lymphocytes/100 WBC (Bld) Lymphocytes/100 leukocytes in Blood by Automated count . [facility] MCH Auto (RBC) [Entitic mass ]Ordered By: Susanne Motley on 07-03-2024 MCH (RBC) [Entitic mass] MCH [Entitic mass] by Automated count 27.5-35.2 [facility] MCHC Auto (RBC) [Mass/Vol]Or dered By: Susanne Motley on 07-03-2024 MCHC (RBC) [Mass/Vol] MCHC [Mass/volume] by Automated count 32.5-35.6 [facility] MCV Auto (RBC) [Entitic vol] Ordered By: Susanne Motley on 07-03-2024 MCV (RBC) [Entitic vol] MCV [Entitic vol ume] by Automated count 83.5-101 [facility] Magnesiumon 07-03-2024 Magnesium [Mass/Vol] 1.5 mg/dL Low 1.9-2.7 [facility] Comment on above: Performed By: #### D DIMER, ANGELITA, TSH3, ACET, T4F, ETOH, MG, HS TROP, PTT ####[facility] [id number] [place] [id number] [facility] Magnesium [Mass/volume] in S christine or PlasmaOrdered By: Susanne Motley on 07-03-2024 Magnesium [Mass/Vol] Magnesium [Mass/vol ume] in Serum or Plasma Low 1.9-2.7 [facility] Monocyte distribution width [Entitic volume] in Blood by AutomatedOrdered By: Susanne Motley on 07-03-2024 Monocyte distribution width Auto (Bld) [Entitic vol] Monocyte distribution width [Entitic volume] in Blood by Automated 0.00-20.00 [facility] Monocytes Auto (Bld) [#/Vol] Ordered By: Susanne Motley on 07-03-2024 Monocytes (Bld) [#/Vol] Automated blood monocyte count 0.0-0.8 [facility] Monocytes/100 WBC Auto (Bld) Ordered By: Susanne Motley on 07-03-2024 Monocytes/100 WBC (Bld) Automated monocyte % . [facility] Neutrophils Auto (Bld) [#/Vo l]Ordered By: Susanne Motley on 07-03-2024 Neutrophils (Bld) [#/Vol] Neutrophils [#/volume] in Blood by Automated count 1.8-7.7 [facility] Neutrophils/100 WBC Auto (Bl d)Ordered By: Susanne Motley on 07-03-2024 Neutrophils/100 WBC (Bld) Automated neutrophil % . [facility] No Panel InformationOrdered By: Susanne Motley on 07-03-2024 Blood Gas Critical Value See comment [facility] Comment on above: Critical Value regan d on: 07/03/2024 at 20:39 Blood Gas Liter Flow 2 [facility] Blood Gas Sample Site Venous Fir [facility] FiO2 28% % [facility] Oxygen Delivery Device Nasal cannula [facility] Venous Blood Base Excess -3.8 mmol/L Low -3.0-3.0 [facility] Venous Blood Oxygen Saturation 50.2 % Critically low 73.0-76.0 [facility] Venous Blood Partial Pressure CO2 40.0 mm[Hg] 38.0-50.0 [facility] Venous Blood pH 7.35 7.32-7.43 [facility] Estimated GFR (CKD-EPI) > 60.0 mL/Min [facility] Creatinine Clearance (Chem 59.91 [facility] Nucleated erythrocytes [Pres ence] in Blood by Automated countOrdered By: Susanne Motley on 07-03-2024 Nucleated RBC Auto Ql (Bld) Nucleated erythrocytes [Presence] in Blood by Automated count 0-0.5 [facility] Partial Thromboplastin Timeo n 07-03-2024 aPTT Coag (Bld) [Time] 41.2 s High 25.1-36.5 [facility] Comment on above: Result Comment: A he matocrit value greater than 55% may lead to inaccurate results in coagulation testing. Patients having hematocrit values >55% require a special collection tube for coagulation studies. Please contact the laboratory at [phone] for redraw instructions. Performed By: #### D DIMER, ANGELITA, TSH3, ACET, T4F, ETOH, MG, HS TROP, PTT ####[facility] [id number] [place] [id number] [facility] Platelet mean volume Auto (B ld) [Entitic vol]Ordered By: Susanne Motley on 07-03-2024 Platelet mean volume (Bld) [Entitic vol] Platelet mean volume [Entitic volume] in Blood by Automated count 6.6-10.1 [facility] Platelets Auto (Bld) [#/Vol] Ordered By: Susanne Motley on 07-03-2024 Platelets (Bld) [#/Vol] Platelets [#/vol ume] in Blood by Automated count 150-450 [facility] Potassium [Moles/volume] in Serum or PlasmaOrdered By: Susanne Motley on 07-03-2024 Potassium [Moles/Vol] Potassium [Moles/v olume] in Serum or Plasma 3.5-5.1 [facility] Protein [Mass/volume] in Ser um or PlasmaOrdered By: Susanne Motley on 07-03-2024 Protein [Mass/Vol] Protein [Mass/volume ] in Serum or Plasma 6.4-8.9 [facility] RBC Auto (Bld) [#/Vol]Ordere d By: Susanne Motley on 07-03-2024 RBC (Bld) [#/Vol] Erythrocytes [#/volu me] in Blood by Automated count Low 3.90-5.60 [facility] Respiratory specimen influen za A virus, influenza B virus, respiratory syncytical virOrdered By: Susanne Motley on 07-03-2024 SARS-CoV-2 (COVID-19) RNA HOWIE+probe Ql (Unsp spec) Respiratory specimen influenza A virus, influenza B virus, respiratory syncytical vir [facility] SARS-CoV-2 (COVID-19) RNA HOWIE+probe Ql (Unsp spec) Respiratory specimen influenza A virus, influenza B virus, respiratory syncytical vir [facility] Salicylateon 07-03-2024 Salicylate <1.5 Low 15.0-30.0 [facility] Comment on above: Result Comment: Ingrid ents treated with Sulfasalazine may generate a false high result for Salicylate. Performed By: #### D DIMER, ANGELITA, TSH3, ACET, T4F, ETOH, MG, HS TROP, PTT ####[facility] [place] [address] [facility] Salicylates [Mass/volume] in Serum or PlasmaOrdered By: Susanne Motley on 07-03-2024 Salicylates [Mass/Vol] Salicylates [Mass /volume] in Serum or Plasma Low 15.0-30.0 [facility] Comment on above: Patients treated wit h Sulfasalazine may generate a false high result for Salicylate. Serum or plasma albumin/glob ulin mass ratioOrdered By: Susanne Motley on 07-03-2024 Albumin/Globulin [Mass ratio] Serum or plasma albumin/globulin mass ratio [facility] Serum or plasma anion gap de terminationOrdered By: Susanne Motley on 07-03-2024 Anion gap [Moles/Vol] Serum or plasma an ion gap determination 6.0-15.0 [facility] Sodium [Moles/volume] in Ser um or PlasmaOrdered By: Susanne Motley on 07-03-2024 Sodium [Moles/Vol] Sodium [Moles/volume ] in Serum or Plasma Low 136-145 [facility] Thyroid Stimulating Hormoneo n 07-03-2024 TSH Qn 2.93 m[IU]/L Normal 0.45-5.33 [facility] Comment on above: Result Comment: PERF ORMED BY:[address] [place] [place], [place] [phone] MEDICAL DIRECTORMALLORIE GARCIA M.D. Performed By: #### D DIMER, ANGELITA, TSH3, ACET, T4F, ETOH, MG, HS TROP, PTT ####[facility] [place] [address] [facility] Thyrotropin [Units/volume] i n Serum or PlasmaOrdered By: Susanne Motley on 07-03-2024 TSH Qn Thyrotropin [Units/v olume] in Serum or Plasma 0.45-5.33 [facility] Thyroxine (T4) free [Mass/vo lume] in Serum or PlasmaOrdered By: Susanne Motley on 07-03-2024 Free T4 [Mass/Vol] Thyroxine (T4) free [Mass/volume] in Serum or Plasma High 0.61-1.12 [facility] Troponin I High Sensitivityo n 07-03-2024 Troponin I High Sensitivity 12 Normal 0-20 [facility] Comment on above: Result Comment: The Troponin units of report have been changed to meet the Chest Pain Accreditation requirement, element EC5.M1l2. Troponin units are changed from pg/ml to ng/L. Also, the decimal is removed and results are in whole numbers.PERFORMED BY:[address] [id number] MEDICAL DIRECTORMALLORIE GARCIA M.D. Performed By: #### H S TROP ####[address] [address] [facility] Troponin I High Sensitivity 14 Normal 0-20 [facility] Comment on above: Result Comment: The Troponin units of report have been changed to meet the Chest Pain Accreditation requirement, element EC5.M1l2. Troponin units are changed from pg/ml to ng/L. Also, the decimal is removed and results are in whole numbers.PERFORMED BY:[address] [id number] MEDICAL DIRECTORMALLORIE GARCIA M.D. Performed By: #### D DIMER, ANGELITA, TSH3, ACET, T4F, ETOH, MG, HS TROP, PTT ####[place] [id number] [facility] Troponin I.cardiac [Mass/vol ume] in Serum or Plasma by Detection limit <= 0.01 ng/Ordered By: Susanne Motley on 07-03-2024 Troponin I.cardiac DL <= 0.01 ng/mL [Mass/Vol] Troponin I.cardiac [Mass/volume] in Serum or Plasma by Detection limit <= 0.01 ng/ 0-20 [facility] Comment on above: The Troponin units [...] nitrogen [Mass/volume] in Serum or Plasma 12-06 [facility] Urine cultureOrdered By: Jose Rafael Motley on 07-03-2024 Bacteria identified Cx Nom (U) Group B Strep (Streptococcus agalactiae) Abnormal [facility] Venous Blood GasOrdered By: Susanne Motley on 07-03-2024 CO2 [Moles/Vol] 22.8 mmol/L Low 24.0-29.0 [facility] Comment on above: Performed By: #### V BG ####Point of Care testing, HCO3 (Bld) [Moles/Vol] 21.5 mmol/L Low 23.0-29.0 [facility] Comment on above: Performed By: #### V BG ####Point of Care testing, Venous Blood Gason Oxygen Device Nasal Cannula Normal [facility] Comment on above: Performed By: #### V BG ####Point of Care testing, Respiratory Critical Normal [facility] Comment on above: Result Comment: Crit ical Value called on: 07/03/2024 at 20:39PERFORMED BY:[place] [id number] [place], [place] [phone] MEDICAL DIRECTORMALLORIE GARCIA M.D. Performed By: #### V BG ####Point of Care testing, VBG Base Excess -3.8 mmol/L Low -3.0-3.0 [facility] Comment on above: Performed By: #### V BG ####Point of Care testing, VBG Draw Site Venous Normal [facility] Comment on above: Performed By: #### V BG ####Point of Care testing, VBG Frac Inspired O2 28% Normal [facility] Comment on above: Performed By: #### V BG ####Point of Care testing, VBG Liter Flow 2 Normal [facility] Comment on above: Performed By: #### V BG ####Point of Care testing, VBG Oxygen Saturation 50.2 % Off scale low 73.0-76.0 [facility] Comment on above: Performed By: #### V BG ####Point of Care testing, VBG PCO2 40.0 mm[Hg] Normal 38.0-50.0 [facility] Comment on above: Performed By: #### V BG ####Point of Care testing, VBG PH Venous PH 7.35 Normal 7.32-7.43 [facility] Comment on above: Performed By: #### V BG ####Point of Care testing, WBC Auto (Bld) [#/Vol]Ordere d By: Susanne Motley on 07-03-2024 WBC (Bld) [#/Vol] Leukocytes [#/volume ] in Blood by Automated count 4.1-10.5 [facility] X-ray reportOrdered By: Juliocesar Varela on 07-03-2024 Study report [facility] [place] [address] XRay Report Signed Patient: Mary Mcadams MR#: [id number] : 1955 Acct:[id number] Age/Sex: 68 / M ADM Date: 5 [...] Juliocesar Varela M.D.07/03/2024 9:04 PM Dictation Location: RADIO-PC-17 Transcribed By: JEANIE 07/03/242103 Dictated By: Juliocesar Varela II, MD 07/03/242101 Signed By: 07/03/242103 [facility] Work Phone: XR chest 2V*on 07-03-2024 XR chest 2V* Normal [facility] aPTT in Platelet poor plasma by Coagulation assayOrdered By: Susanne Motley on 07-03-2024 aPTT Coag (PPP) [Time] Activated partial thromboplastin time (aPTT) in platelet poor plasma by coagulation a High 25.1-36.5 [facility] Comment on above: A hematocrit value g reater than 55% may lead to inaccurate results in coagulation testing. Patients having hematocrit values >55% require a special collection tube for coagulation studies. Please contact the laboratory at [phone] for redraw instructions. [facility] W stress and W radionuclide Juanjose 06-12-2024 Normal Lexiscan Myov iew cardiac perfusion stress test. No evidence of ischemia or myocardial infarction by perfusion imaging. Normal left ventricular systolic function, ejection fraction 57%. No previous study available for comparison. Signed by: Chacho Burroughs 06/12/2024 5:53 PM Dictation workstation: [id number] [facility] MMODAL Interpreted By: Chacho Burroughs and Giannuzzi Michael STUDY: MYOCARDIAL PERFUSION STRESS TEST WITH LEXISCAN Performing facility: [facility], [address] [place] [address], [address], [address] Provider: Shannon Gonzalez MD, [facility] PCP: Dr. Mat Del Valle Supervising provider: Chacho Burroughs MD INDICATION: Fatigue NICM A-fib LV Thrombus HISTORY: Gender: M; Age: 68 y/o ; Height: HT 182.9 cm cm; Weight: WT 70.852 kg kg. Arrhythmias;A-fib SOB; COPD; Fatigue; Denies smoking. COMPARISON: No comparison. ACCESSION NUMBER(S): [id number] ORDERING CLINICIAN: SHANNON GONZALEZ TECHNIQUE: ONE DAY [...] There were no evidence of attenuation artifact. MMODAL Chacho Burroughs MD - 06/12/2024 Interpreted By: Chacho Burroughs and Giannuzzi Michael STUDY: MYOCARDIAL PERFUSION STRESS TEST WITH LEXISCAN Performing facility: [facility], [address] [place] [address], [address], [address] Provider: Shannon Gonzalez MD, FACC PCP: Dr. Mat Del Valle Supervising provider: Chacho Burroughs MD INDICATION: Fatigue NICM A-fib LV Thrombus HISTORY: Gender: M; Age: 68 y/o ; Height: HT 182.9 cm cm; Weight: WT 70.852 kg kg. Arrhythmias;A-fib SOB; COPD; Fatigue; Denies smoking. COMPARISON: No comparison. ACCESSION NUMBER(S): [id number] ORDERING CLINICIAN: SHANNON GONZALEZ TECHNIQUE: ONE DAY [...] Chacho Burroughs 06/12/2024 5:53 PM Dictation workstation: [id number] [facility] Work Phone: Radiology Study observation (narrative) [facility] Work Phone: NM Heart Perfusion W stress and W radionuclide IVOrdered By: Chacho Burroughs on 06-12-2024 [facility] Work Phone: NUCLEAR STRESS TESTon 2024 NUCLEAR STRESS TEST Interpreted By: Chacho Burroughs and Giannuzzi Michael STUDY: MYOCARDIAL PERFUSION STRESS TEST WITH LEXISCAN Performing facility: [facility], [address] [place] [address], [address], [place] [id number] [facility] Provider: Shannon Gonzalez MD, FACC PCP: Dr. Mat Del Valle Supervising provider: Chacho Burroughs MD INDICATION: Fatigue NICM A-fib LV Thrombus HISTORY: Gender: M; Age: 68 y/o ; Height: HT 182.9 cm cm; Weight: WT 70.852 kg kg. Arrhythmias;A-fib SOB; COPD; Fatigue; Denies smoking. COMPARISON: No comparison. ACCESSION NUMBER(S): [id number] ORDERING CLINICIAN: SHANNON GONZALEZ TECHNIQUE: ONE DAY [...] Chacho Burroughs 06/12/2024 5:53 PM Dictation workstation: [id number] [facility] ECG 12 Leadon 05-24-2024 ECG revealed normal sinus rhythm, LVH with repolarization abnormalities and QRS widening, prolonged QT interval, abnormal ECG [facility] Work Phone: Basophils Auto (Bld) [#/Vol] on 05-22-2024 Basophils (Bld) [#/Vol] Automated basophil count 0.0-0.1 [facility] Basophils/100 WBC Auto (Bld) on 05-22-2024 Basophils/100 WBC (Bld) Automated basophil % 0. 2-2.0 [facility] Eosinophils/100 WBC Auto (Bl d)on 05-22-2024 Eosinophils/100 WBC (Bld) Automated eosinophil % 0.9-7.0 [facility] Erythrocyte distribution wid th Auto (RBC) [Ratio]on 05-22-2024 Erythrocyte distribution width (RBC) [Ratio] Erythrocyte distribution width [Ratio] by Automated count 11.0-15.0 [facility] Estimated glomerular filtrat ion rate (GFR) non- Americanon 05-22-2024 GFR/1.73 sq M.predicted among non-blacks MDRD (S/P/Bld) [Vol rate/Area] Estimated glomerular filtration rate (GFR) non- >=60 mL/min/1.7 3m 2 [facility] Globulin Calc (S) [Mass/Vol] on 05-22-2024 Globulin (S) [Mass/Vol] Serum globulin m easurement by calculation (mass/volume) [facility] Hematocrit Auto (Bld) [Volum e fraction]on 05-22-2024 Hematocrit (Bld) [Volume fraction] Hematocrit [Volume Fraction] of Blood by Automated count Low 42.0-54.0 [facility] Hemoglobin [Mass/volume] in Bloodon 05-22-2024 Hemoglobin (Bld) [Mass/Vol] Hemoglobin [Mass/volume] in Blood Low 14.0-18.0 [facility] Laboratory - Chemistry and C hemistry - challengeon 05-22-2024 Albumin [Mass/Vol] 2.9 g/dL Low 3.4-5.0 [facility] ALP [Catalytic activity/Vol] 149 U/L High 46-116 [facility] ALT [Catalytic activity/Vol] 15 U/L Low 16-63 [facility] AST [Catalytic activity/Vol] 18 U/L 15-37 [facility] Bilirubin [Mass/Vol] 0.8 mg/dL 0.2-1.0 [facility] Calcium [Mass/Vol] 8.9 mg/dL 8.5-10.1 [facility] Chloride [Moles/Vol] 100 mmol/L 98-107 [facility] CO2 [Moles/Vol] 29.8 mmol/L 21.0-32.0 [facility] Creatinine [Mass/Vol] 0.95 mg/dL 0.70-1.30 [facility] GFR/1.73 sq M.predicted MDRD (S/P/Bld) [Vol rate/Area] mL/min/{1.73_m2} >=60 mL/min/1.7 3m 2 [facility] Glucose [Mass/Vol] 82 mg/dL 74-106 [facility] Potassium [Moles/Vol] 4.0 mmol/L 3.5-5.1 [facility] Protein [Mass/Vol] 6.2 g/dL Low 6.4-8.2 [facility] Sodium [Moles/Vol] 138 mmol/L 136-145 [facility] Urea nitrogen [Mass/Vol] 11.0 mg/dL 7.0-18.0 [facility] Urea nitrogen/Creatinine [Mass ratio] 11.6 mg/mg [facility] Laboratory - Hematology and Cell countson 05-22-2024 Immature granulocytes/100 WBC (Bld) 0.5 % 0.0-0.5 [facility] Leukocytes [#/volume] correc junior for nucleated erythrocytes in Blood by Automated counon 05-22-2024 WBC corrected for nucl RBC Auto (Bld) [#/Vol] Leukocytes [#/volume] corrected for nucleated erythrocytes in Blood by Automated coun 4.0-11.0 [facility] Lymphocytes Auto (Bld) [#/Vo l]on 05-22-2024 Lymphocytes (Bld) [#/Vol] Lymphocytes [#/volume] in Blood by Automated count Low 1.2-3.8 [facility] Lymphocytes/100 WBC Auto (Bl d)on 05-22-2024 Lymphocytes/100 WBC (Bld) Lymphocytes/100 leukocytes in Blood by Automated count Low 20.5-60.0 [facility] MCH Auto (RBC) [Entitic mass ]on 05-22-2024 MCH (RBC) [Entitic mass] MCH [Entitic mass] by Automated count 25.9-34.0 [facility] MCHC Auto (RBC) [Mass/Vol]on 05-22-2024 MCHC (RBC) [Mass/Vol] MCHC [Mass/volume] by Automated count 29.9-35.2 [facility] MCV Auto (RBC) [Entitic vol] on 05-22-2024 MCV (RBC) [Entitic vol] MCV [Entitic vol ume] by Automated count 80.0-94.0 [facility] Monocytes Auto (Bld) [#/Vol] on 05-22-2024 Monocytes (Bld) [#/Vol] Automated blood monocyte count High 0.3-0.8 [facility] Monocytes/100 WBC Auto (Bld) on 05-22-2024 Monocytes/100 WBC (Bld) Automated monocyte % High 1. 7-12.0 [facility] Neutrophils Auto (Bld) [#/Vo l]on 05-22-2024 Neutrophils (Bld) [#/Vol] Neutrophils [#/volume] in Blood by Automated count 1.4-6.5 [facility] Neutrophils/100 WBC Auto (Bl d)on 05-22-2024 Neutrophils/100 WBC (Bld) Automated neutrophil % 43.0-75.0 [facility] No Panel Informationon 05-22 Eosinophils # (Auto) 0.3 10 3/uL 0.0-0.7 [facility] Immature Granulocyte # (Auto) 0.03 10 3/uL 0.00-0.03 [facility] Platelet mean volume Auto (B ld) [Entitic vol]on 05-22-2024 Platelet mean volume (Bld) [Entitic vol] Platelet mean volume [Entitic volume] in Blood by Automated count 9.5-13.5 [facility] Platelets Auto (Bld) [#/Vol] on 05-22-2024 Platelets (Bld) [#/Vol] Platelets [#/vol ume] in Blood by Automated count 150-450 [facility] RBC Auto (Bld) [#/Vol]on RBC (Bld) [#/Vol] Erythrocytes [#/volu me] in Blood by Automated count Low 4.70-6.10 [facility] Serum or plasma albumin/glob ulin mass ratioon 05-22-2024 Albumin/Globulin [Mass ratio] Serum or plasma albumin/globulin mass ratio [facility] Serum or plasma anion gap de terminationon 05-22-2024 Anion gap [Moles/Vol] Serum or plasma an ion gap determination [facility] Estimated glomerular filtrat ion rate (GFR) non- Americanon 04-09-2024 GFR/1.73 sq M.predicted among non-blacks MDRD (S/P/Bld) [Vol rate/Area] Estimated glomerular filtration rate (GFR) non- Low >=60 mL/min/1.7 3m 2 [facility] - Chemistry and C hemistry - challengeon 04-09-2024 Calcium [Mass/Vol] 8.9 mg/dL 8.5-10.1 [facility] Chloride [Moles/Vol] 102 mmol/L 98-107 [facility] CO2 [Moles/Vol] 25.4 mmol/L 21.0-32.0 [facility] Creatinine [Mass/Vol] 1.26 mg/dL 0.70-1.30 [facility] GFR/1.73 sq M.predicted MDRD (S/P/Bld) [Vol rate/Area] mL/min/{1.73_m2} >=60 mL/min/1.7 3m 2 [facility] Glucose [Mass/Vol] 91 mg/dL 74-106 [facility] Potassium [Moles/Vol] 4.1 mmol/L 3.5-5.1 [facility] Sodium [Moles/Vol] 137 mmol/L 136-145 [facility] Urea nitrogen [Mass/Vol] 12.0 mg/dL 7.0-18.0 [facility] Urea nitrogen/Creatinine [Mass ratio] 9.5 mg/mg [facility] Serum or plasma anion gap de terminationon 04-09-2024 Anion gap [Moles/Vol] Serum or plasma an ion gap determination [facility] ECG 12 Leadon 03-27-2024 ECG revealed normal sinus rhythm, IVCD, prolonged QT interval, diffuse ST and T changes, abnormal ECG [facility] Work Phone: Basic Metabolic Panelon 03-15 Anion gap [Moles/Vol] 9.0 mmol/L Normal 6.0-15.0 [facility] Comment on above: Performed By: #### B MP ####[address] [address] [facility] Calcium [Mass/Vol] 8.0 mg/dL Low 8.6-10.3 [facility] Comment on above: Result Comment: PERF ORMED BY:[address] [place], [place] [phone] MEDICAL DIRECTORBETHANY ALBRIGHT M.D. Performed By: #### B MP ####[address] [address] [facility] Chloride [Moles/Vol] 100 mmol/L Normal 98-107 [facility] Comment on above: Performed By: #### B MP ####[address] [address] [facility] CO2 [Moles/Vol] 30.3 mmol/L Normal 21.0-31.0 [facility] Comment on above: Performed By: #### B MP ####[address] [address] [facility] Creatinine [Mass/Vol] 1.09 mg/dL Normal 0.70-1.30 [facility] Comment on above: Performed By: #### B MP ####[address] [address] [place] GFR/1.73 sq M.predicted MDRD (S/P/Bld) [Vol rate/Area] mL/min/{1.73_m2} Normal [facility] Comment on above: Performed By: #### B MP ####[address] [address] [facility] Glucose [Mass/Vol] 98 mg/dL Normal 70-100 [facility] Comment on above: Result Comment: [facility] Glucose Reference Range is dependent on time and content of last meal. Glucose of more than 200 mg/dL in a nonstressed, ambulatory subject supports the diagnosis of Diabetes Mellitus. ADA recommended reference range Performed By: #### B MP ####[place] [id number] Potassium [Moles/Vol] 3.3 mmol/L Low 3.5-5.1 [facility] Comment on above: Performed By: #### B MP ####[place] [id number] Sodium [Moles/Vol] 136 mmol/L Normal 136-145 [facility] Comment on above: Performed By: #### B MP ####[place] [id number] [place] [id number] [facility] Urea nitrogen [Mass/Vol] 23 mg/dL Normal 7-25 [facility] Comment on above: Performed By: #### B MP ####[place] [id number] [facility] Calcium [Mass/volume] in Ser um or PlasmaOrdered By: Adam Del Valle on 03-26-2024 Calcium [Mass/Vol] Calcium [Mass/volume ] in Serum or Plasma Low 8.6-10.3 [facility] Carbon dioxide, total [Moles /volume] in Serum or PlasmaOrdered By: Adam Del Valle on 03-26-2024 CO2 [Moles/Vol] Carbon dioxide, tota l [Moles/volume] in Serum or Plasma 21.0-31.0 [facility] Chloride [Moles/volume] in S christine or PlasmaOrdered By: Adam Del Valle on 03-26-2024 Chloride [Moles/Vol] Chloride [Moles/vol ume] in Serum or Plasma 98-107 [facility] Creatinine [Mass/volume] in Serum or PlasmaOrdered By: Adam Del Valle on 03-26-2024 Creatinine [Mass/Vol] Creatinine [Mass/v olume] in Serum or Plasma 0.70-1.30 [facility] Glucose [Mass/volume] in Ser um or PlasmaOrdered By: Adam Del Valle on 03-26-2024 Glucose [Mass/Vol] Glucose [Mass/volume ] in Serum or Plasma 70-100 [facility] Comment on above: ADA recommended refe rence rangeRandom Glucose Reference Range is dependent on time and content of last meal. Glucose of more than 200 mg/dL in a nonstressed, ambulatory subject supports the diagnosis of Diabetes Mellitus. No Panel InformationOrdered By: Adam Del Valle on 03-26-2024 Estimated GFR (CKD-EPI) > 60.0 mL/Min [facility] Creatinine Clearance (Chem N/A [facility] Potassium [Moles/volume] in Serum or PlasmaOrdered By: Adam Del Valle on 03-26-2024 Potassium [Moles/Vol] Potassium [Moles/v olume] in Serum or Plasma Low 3.5-5.1 [facility] Serum or plasma anion gap de terminationOrdered By: Adam Del Valle on 03-26-2024 Anion gap [Moles/Vol] Serum or plasma an ion gap determination 6.0-15.0 [facility] Sodium [Moles/volume] in Ser um or PlasmaOrdered By: Adam Del Valle on 03-26-2024 Sodium [Moles/Vol] Sodium [Moles/volume ] in Serum or Plasma 136-145 [facility] Urea nitrogen [Mass/volume] in Serum or PlasmaOrdered By: Adam Del Valle on 03-26-2024 Urea nitrogen [Mass/Vol] Urea nitrogen [Mass/volume] in Serum or Plasma 7-25 [facility] ECG 12 lead ECGon 03-20-2024 ECG 12 lead ECG Normal [facility] ECG 12 lead ECGon 03-19-2024 ECG 12 lead ECG Normal [facility] Basic Metabolic Panelon Creatinine Clr Calc Pharmacy 71.44 Normal [facility] Comment on above: Result Comment: PERF ORMED BY:[facility] [place], [place] [phone] MEDICAL DIRECTORBETHANY ALBRIGHT M.D. Performed By: #### B MP ####[facility] [place] [address] [facility] GFR/1.73 sq M.predicted MDRD (S/P/Bld) [Vol rate/Area] mL/min/{1.73_m2} Normal [facility] Comment on above: Performed By: #### B MP ####[place] [id number] [facility] Calcium [Mass/volume] in Ser um or PlasmaOrdered By: Altaf Jones on 03-18-2024 Calcium [Mass/Vol] 8.6 mg/dL Normal 8.6-10.3 [facility] Comment on above: Performed By: #### B MP ####[place] [id number] [facility] Calcium [Mass/Vol] Calcium [Mass/volume ] in Serum or Plasma 8.6-10.3 [facility] Carbon dioxide, total [Moles /volume] in Serum or PlasmaOrdered By: Altaf Jones on 03-18-2024 CO2 [Moles/Vol] 30.2 mmol/L Normal 21.0-31.0 [facility] Comment on above: Performed By: #### B MP ####[place] [id number] [facility] CO2 [Moles/Vol] Carbon dioxide, tota l [Moles/volume] in Serum or Plasma 21.0-31.0 [facility] Chloride [Moles/volume] in S christine or PlasmaOrdered By: Altaf Jones on 03-18-2024 Chloride [Moles/Vol] 97 mmol/L Low 98-107 [facility] Comment on above: Performed By: #### B MP ####[place] [id number] [facility] Chloride [Moles/Vol] Chloride [Moles/vol ume] in Serum or Plasma Low 98-107 [facility] Creatinine [Mass/volume] in Serum or PlasmaOrdered By: Altaf Jones on 03-18-2024 Creatinine [Mass/Vol] 0.98 mg/dL Normal 0.70-1.30 [facility] Comment on above: Performed By: #### B MP ####[place] [id number] [facility] Creatinine [Mass/Vol] Creatinine [Mass/v olume] in Serum or Plasma 0.70-1.30 [facility] ECG 12 lead ECGon 03-18-2024 ECG 12 lead ECG Normal [facility] ECG 12 lead ECG Normal [facility] Glucose [Mass/volume] in Ser um or PlasmaOrdered By: Altaf Jones on 03-18-2024 Glucose [Mass/Vol] 93 mg/dL Normal 70-100 [facility] Comment on above: ADA recommended refe rence rangeRandom Glucose Reference Range is dependent on time and content of last meal. Glucose of more than 200 mg/dL in a nonstressed, ambulatory subject supports the diagnosis of Diabetes Mellitus. Result Comment: [facility] Glucose Reference Range is dependent on time and content of last meal. Glucose of more than 200 mg/dL in a nonstressed, ambulatory subject supports the diagnosis of Diabetes Mellitus. ADA recommended reference range Performed By: #### B MP ####[facility] [id number] [place] [id number] [facility] Glucose [Mass/Vol] Glucose [Mass/volume ] in Serum or Plasma 70-100 [facility] Comment on above: ADA recommended refe rence rangeRandom Glucose Reference Range is dependent on time and content of last meal. Glucose of more than 200 mg/dL in a nonstressed, ambulatory subject supports the diagnosis of Diabetes Mellitus. No Panel InformationOrdered By: Altaf Jones on 03-18-2024 Estimated GFR (CKD-EPI) > 60.0 mL/Min [facility] Creatinine Clearance (Chem 71.44 [facility] Potassium [Moles/volume] in Serum or PlasmaOrdered By: Altaf Jones on 03-18-2024 Potassium [Moles/Vol] 4.1 mmol/L Normal 3.5-5.1 [facility] Comment on above: Performed By: #### B MP ####[place] [id number] [place] [id number] [facility] Potassium [Moles/Vol] Potassium [Moles/v olume] in Serum or Plasma 3.5-5.1 [facility] Serum or plasma anion gap de terminationOrdered By: Altaf Jones on 03-18-2024 Anion gap [Moles/Vol] 8.9 mmol/L Normal 6.0-15.0 [facility] Comment on above: Performed By: #### B MP ####[address] Anion gap [Moles/Vol] Serum or plasma an ion gap determination 6.0-15.0 [facility] Sodium [Moles/volume] in Ser um or PlasmaOrdered By: Altaf Jones on 03-18-2024 Sodium [Moles/Vol] 132 mmol/L Low 136-145 [facility] Comment on above: Performed By: #### B MP ####[address] Sodium [Moles/Vol] Sodium [Moles/volume ] in Serum or Plasma Low 136-145 [facility] Urea nitrogen [Mass/volume] in Serum or PlasmaOrdered By: Altaf Jones on 03-18-2024 Urea nitrogen [Mass/Vol] 31 mg/dL [facility] 7-25 [facility] Comment on above: Performed By: #### B MP ####[address] Urea nitrogen [Mass/Vol] Urea nitrogen [Mass/volume] in Serum or Plasma [facility] 7-25 [facility] Basic Metabolic Panelon 11 Anion gap [Moles/Vol] 9.7 mmol/L Normal 6.0-15.0 [facility] Comment on above: Performed By: #### B MP ####[place] [id number] [facility] Calcium [Mass/Vol] 8.7 mg/dL Normal 8.6-10.3 [facility] Comment on above: Performed By: #### B MP ####[place] [id number] [facility] Chloride [Moles/Vol] 96 mmol/L Low 98-107 [facility] Comment on above: Performed By: #### B MP ####[place] [phone] [facility] CO2 [Moles/Vol] 32.3 mmol/L High 21.0-31.0 [facility] Comment on above: Performed By: #### B MP ####[place] [phone] [facility] Creatinine [Mass/Vol] 0.95 mg/dL Normal 0.70-1.30 [facility] Comment on above: Performed By: #### B MP ####[place] [phone] [facility] Creatinine Clr Calc Pharmacy 74.53 Normal [facility] Comment on above: Result Comment: PERF ORMED BY:[address] [place], [place] [phone] MEDICAL DIRECTORBETHANY ALBRIGHT M.D. Performed By: #### B MP ####[place] [phone] [facility] GFR/1.73 sq M.predicted MDRD (S/P/Bld) [Vol rate/Area] mL/min/{1.73_m2} Normal [facility] Comment on above: Performed By: #### B MP ####[place] [id number] [facility] Glucose [Mass/Vol] 111 mg/dL High 70-100 [facility] Comment on above: Result Comment: [place] Glucose Reference Range is dependent on time and content of last meal. Glucose of more than 200 mg/dL in a nonstressed, ambulatory subject supports the diagnosis of Diabetes Mellitus. ADA recommended reference range Performed By: #### B MP ####[place] [id number] [facility] Potassium [Moles/Vol] 4.0 mmol/L Normal 3.5-5.1 [facility] Comment on above: Performed By: #### B MP ####[place] [phone] [facility] Sodium [Moles/Vol] 134 mmol/L Low 136-145 [facility] Comment on above: Performed By: #### B MP ####[place] [id number] [facility] Urea nitrogen [Mass/Vol] 28 mg/dL High 7-25 [facility] Comment on above: Performed By: #### B MP ####[place] [id number] [facility] ECG 12 lead ECGon 03-17-2024 ECG 12 lead ECG Normal [facility] ECG 12 lead ECG Normal [facility] ECG 12 lead ECG Normal [facility] Basic Metabolic Panelon Anion gap [Moles/Vol] 11.9 mmol/L Normal 6.0-15.0 [facility] Comment on above: Performed By: #### B MP ####[address] Calcium [Mass/Vol] 8.2 mg/dL Low 8.6-10.3 [facility] Comment on above: Performed By: #### B MP ####[address] Chloride [Moles/Vol] 95 mmol/L Low 98-107 [facility] Comment on above: Performed By: #### B MP ####[address] CO2 [Moles/Vol] 28.6 mmol/L Normal 21.0-31.0 [facility] Comment on above: Performed By: #### B MP ####[place] [id number] [facility] Creatinine [Mass/Vol] 0.82 mg/dL Normal 0.70-1.30 [facility] Comment on above: Performed By: #### B MP ####[place] [id number] [facility] Creatinine Clr Calc Pharmacy 85.62 Normal [facility] Comment on above: Result Comment: PERF ORMED BY:[address] [place], [place] [phone] MEDICAL DIRECTORBETHANY ALBRIGHT M.D. Performed By: #### B MP ####[address] GFR/1.73 sq M.predicted MDRD (S/P/Bld) [Vol rate/Area] mL/min/{1.73_m2} Normal [facility] Comment on above: Performed By: #### B MP ####[address] Glucose [Mass/Vol] 127 mg/dL High 70-100 [facility] Comment on above: Result Comment: [facility] Glucose Reference Range is dependent on time and content of last meal. Glucose of more than 200 mg/dL in a nonstressed, ambulatory subject supports the diagnosis of Diabetes Mellitus. ADA recommended reference range Performed By: #### B MP ####[address] Potassium [Moles/Vol] 3.5 mmol/L Normal 3.5-5.1 [facility] Comment on above: Performed By: #### B MP ####[address] Sodium [Moles/Vol] 132 mmol/L Low 136-145 [facility] Comment on above: Performed By: #### B MP ####[address] Urea nitrogen [Mass/Vol] 22 mg/dL Normal 7-25 [facility] Comment on above: Performed By: #### B MP ####[address] ECG 12 lead ECGon 03-16-2024 ECG 12 lead ECG Normal [facility] Basic Metabolic Panelon 110 Anion gap [Moles/Vol] 14.2 mmol/L Normal 6.0-15.0 [facility] Comment on above: Performed By: #### B MP ####[place] [id number] [facility] Calcium [Mass/Vol] 8.9 mg/dL Normal 8.6-10.3 [facility] Comment on above: Performed By: #### B MP ####[place] [id number] [facility] Chloride [Moles/Vol] 94 mmol/L Low 98-107 [facility] Comment on above: Performed By: #### B MP ####[place] [id number] [facility] CO2 [Moles/Vol] 28.7 mmol/L Normal 21.0-31.0 [facility] Comment on above: Performed By: #### B MP ####[place] [id number] [facility] Creatinine [Mass/Vol] 0.89 mg/dL Normal 0.70-1.30 [facility] Comment on above: Performed By: #### B MP ####[place] [id number] [facility] Creatinine Clr Calc Pharmacy 79.89 Normal [facility] Comment on above: Result Comment: PERF ORMED BY:[address] [place], [place] [id number] MEDICAL DIRECTORBETHANY ALBRIGHT M.D. Performed By: #### B MP ####[place] [id number] [facility] GFR/1.73 sq M.predicted MDRD (S/P/Bld) [Vol rate/Area] mL/min/{1.73_m2} Normal [facility] Comment on above: Performed By: #### B MP ####[place] [id number] [facility] Glucose [Mass/Vol] 141 mg/dL High 70-100 [facility] Comment on above: Result Comment: [place] Glucose Reference Range is dependent on time and content of last meal. Glucose of more than 200 mg/dL in a nonstressed, ambulatory subject supports the diagnosis of Diabetes Mellitus. ADA recommended reference range Performed By: #### B MP ####[place] [id number] [facility] Potassium [Moles/Vol] 3.9 mmol/L Normal 3.5-5.1 [facility] Comment on above: Result Comment: Hemo lysis is present at a level that could interfere with the result. Contact lab if redraw is required Performed By: #### B MP ####[place] [id number] Sodium [Moles/Vol] 133 mmol/L Low 136-145 [facility] Comment on above: Performed By: #### B MP ####[place] [id number] Urea nitrogen [Mass/Vol] 16 mg/dL Normal 7-25 [facility] Comment on above: Performed By: #### B MP ####[place] [id number] US carotid doppler BIon 11-0 US carotid doppler BI Normal [facility] Appearance of UrineOrdered B y: Maricruz Godoy on 03-14-2024 Appearance (U) Urine appearance Clear [facility] Automated basophil %Ordered By: Maricruz Godoy on 03-14-2024 Basophils/100 WBC (Bld) 1.2 % Normal . [facility] Comment on above: Performed By: #### B MP, MG, CBC ####[address] Automated basophil countOrde red By: Maricruz Godoy on 03-14-2024 Basophils (Bld) [#/Vol] 0.1 10*3/uL Normal 0.0-0.2 [facility] Comment on above: Result Comment: PERF ORMED BY:[address] [place], [place] [phone] MEDICAL DIRECTORBETHANY ALBRIGHT M.D. Performed By: #### B MP, MG, CBC ####[place] [id number] Automated blood monocyte cou ntOrdered By: Maricruz Godoy on 03-14-2024 Monocytes (Bld) [#/Vol] 0.9 10*3/uL High 0.0-0.8 [facility] Comment on above: Performed By: #### B MP, MG, CBC ####[address] Automated eosinophil %Ordere d By: Maricruz Godoy on 03-14-2024 Eosinophils/100 WBC (Bld) 2.3 % Normal . [facility] Comment on above: Performed By: #### B MP, MG, CBC ####[address] Automated eosinophil countOr dered By: Maricruz Godoy on 03-14-2024 Eosinophils (Bld) [#/Vol] 0.2 10*3/uL Normal 0.0-0.45 [facility] Comment on above: Performed By: #### B MP, MG, CBC ####[address] Automated monocyte %Ordered By: Maricruz Godoy on 03-14-2024 Monocytes/100 WBC (Bld) 11.6 % Normal . [facility] Comment on above: Performed By: #### B MP, MG, CBC ####[address] Automated neutrophil %Ordere d By: Maricruz Godoy on 03-14-2024 Neutrophils/100 WBC (Bld) 76.4 % Normal . [facility] Comment on above: Performed By: #### B MP, MG, CBC ####[address] Bacteria [Presence] in Urine by AutomatedOrdered By: Maricruz Godoy on 03-14-2024 Bacteria Auto Ql (U) 1+ [HPF] High None Seen [facility] Bacteria Auto Ql (U) Bacteria [Presence] in Urine by Automated High None Seen [facility] Basic Metabolic Panelon 02-14 Anion gap [Moles/Vol] 11.0 mmol/L Normal 6.0-15.0 [facility] Comment on above: Performed By: #### B MP, MG, CBC ####[address] Calcium [Mass/Vol] 8.4 mg/dL Low 8.6-10.3 [facility] Comment on above: Performed By: #### B MP, MG, CBC ####[place] [id number] [place] Chloride [Moles/Vol] 101 mmol/L Normal 98-107 [facility] Comment on above: Performed By: #### B MP, MG, CBC ####[place] [id number] [facility] CO2 [Moles/Vol] 26.0 mmol/L Normal 21.0-31.0 [facility] Comment on above: Performed By: #### B MP, MG, CBC ####[place] [id number] [facility] Creatinine [Mass/Vol] 0.71 mg/dL Normal 0.70-1.30 [facility] Comment on above: Performed By: #### B MP, MG, CBC ####[place] [address] [place] Creatinine Clr Calc Pharmacy 88.87 Normal [facility] Comment on above: Performed By: #### B MP, MG, CBC ####[place] [id number] [place] GFR/1.73 sq M.predicted MDRD (S/P/Bld) [Vol rate/Area] mL/min/{1.73_m2} Normal [facility] Comment on above: Performed By: #### B MP, MG, CBC ####[address] Glucose [Mass/Vol] 96 mg/dL Normal 70-100 [facility] Comment on above: Result Comment: [place] Glucose Reference Range is dependent on time and content of last meal. Glucose of more than 200 mg/dL in a nonstressed, ambulatory subject supports the diagnosis of Diabetes Mellitus. ADA recommended reference range Performed By: #### B MP, MG, CBC ####[place] [id number] [facility] Potassium [Moles/Vol] 4.0 mmol/L Normal 3.5-5.1 [facility] Comment on above: Performed By: #### B MP, MG, CBC ####[facility] Sodium [Moles/Vol] 134 mmol/L Low 136-145 [facility] Comment on above: Performed By: #### B MP, MG, CBC ####[place] [id number] Urea nitrogen [Mass/Vol] 12 mg/dL Normal 7-25 [facility] Comment on above: Performed By: #### B MP, MG, CBC ####[place] [id number] Basophils Auto (Bld) [#/Vol] Ordered By: Maricruz Godoy on 03-14-2024 Basophils (Bld) [#/Vol] Automated basophil count 0.0-0.2 [facility] Basophils/100 WBC Auto (Bld) Ordered By: Maricruz Godoy on 03-14-2024 Basophils/100 WBC (Bld) Automated basophil % . [facility] Bilirubin Test strip Ql (U)O rdered By: Maricruz Godoy on 03-14-2024 Bilirubin Ql (U) Negative Negative [facility] Bilirubin Ql (U) Bilirubin.total [Pre sence] in Urine by Test strip Negative [facility] Color Auto (U)Ordered By: Jeanette Godoy on 03-14-2024 Color (U) Color of Urine by Auto Yellow Fi [facility] Color of Urine by AutoOrdere d By: Maricruz Godoy on 03-14-2024 Color (U) Yellow Normal Yellow [facility] Comment on above: Order Comment: Name Collection Type:: Salinas Catheter Performed By: #### C UU, ADDONUAPLUS ####[address] Complete Blood Count Auto Di ffon 03-14-2024 Mean Corpuscular HGB Conc 33.3 g/dL Normal 32.5-35.6 [facility] Comment on above: Performed By: #### B MP, MG, CBC ####[address] NRBC% 0.1 /100{WBC} Normal 0-0.5 [facility] Comment on above: Performed By: #### B MP, MG, CBC ####[address] [address] [facility] Dipstick and Microscopicon 1 Bacteria,Urine 1+ High None Seen [facility] Comment on above: Order Comment: Name Collection Type:: Salinas Catheter Performed By: #### C UU, ADDONUAPLUS ####[address] [address] [facility] Bilirubin,Urine Negative Normal Negative [facility] Comment on above: Order Comment: Name Collection Type:: Salinas Catheter Performed By: #### C UU, ADDONUAPLUS ####[address] Glucose Ql (U) Normal Normal Normal [facility] Comment on above: Order Comment: Name Collection Type:: Salinas Catheter Performed By: #### C UU, ADDONUAPLUS ####[place] [id number] [facility] Hyaline Casts,Urine None Normal 0-8 [facility] Comment on above: Order Comment: Name Collection Type:: Salinas Catheter Performed By: #### C UU, ADDONUAPLUS ####[place] [id number] [facility] Mucus,Urine Rare Normal [facility] Comment on above: Order Comment: Name Collection Type:: Salinas Catheter Result Comment: PERF ORMED BY:[address] [place], [place] [phone] MEDICAL DIRECTORBETHANY ALBRIGHT M.D. Performed By: #### C UU, ADDONUAPLUS ####[address] [address] [facility] Nitrite,Urine Negative Normal Negative [facility] Comment on above: Order Comment: Name Collection Type:: Salinas Catheter Performed By: #### C UU, ADDONUAPLUS ####[address] [address] [facility] Occult Blood,Urine 2+ High Negative [facility] Comment on above: Order Comment: Name Collection Type:: Salinas Catheter Result Comment: PERF ORMED BY:[address] [place], [place] [phone] MEDICAL ANIA ALBRIGHT M.D. Performed By: #### C UU, ADDONUAPLUS ####[address] RBC,Urine 50-100 High 0-4 [facility] Comment on above: Order Comment: Name Collection Type:: Salinas Catheter Performed By: #### C UU, ADDONUAPLUS ####[address] Specificy [place],Urine 1.046 High 1.00 1-1.03 0 [facility] Comment on above: Order Comment: Name Collection Type:: Salinas Catheter Performed By: #### C UU, ADDONUAPLUS ####[address] Urobilinogen,Urine Normal Normal Normal [facility] Comment on above: Order Comment: Name Collection Type:: Salinas Catheter Performed By: #### C UU, ADDONUAPLUS ####[address] WBC CLUMP, Urine Occasional High None Seen [facility] Comment on above: Order Comment: Name Collection Type:: Salinas Catheter Performed By: #### C UU, ADDONUAPLUS ####[address] WBC,Urine 50-100 High 0-4 [facility] Comment on above: Order Comment: Name Collection Type:: Salinas Catheter Performed By: #### C UU, ADDONUAPLUS ####[address] Eosinophils Auto (Bld) [#/Vo l]Ordered By: Maricruz Godoy on 03-14-2024 Eosinophils (Bld) [#/Vol] Automated eosinophil count 0.0-0.45 [facility] Eosinophils/100 WBC Auto (Bl d)Ordered By: Maricruz Godoy on 03-14-2024 Eosinophils/100 WBC (Bld) Automated eosinophil % . [facility] Epithelial cells.squamous [# /area] in Urine sediment by Automated countOrdered By: Maricruz Godoy on 03-14-2024 Epithelial cells.squamous Auto (Urine sed) [#/Area] N/A [facility] Epithelial cells.squamous Auto (Urine sed) [#/Area] Epithelial cells.squamous [#/area] in Urine sediment by Automated count [facility] Erythrocyte distribution wid th Auto (RBC) [Ratio]Ordered By: Maricruz Godoy on 03-14-2024 Erythrocyte distribution width (RBC) [Ratio] Erythrocyte distribution width [Ratio] by Automated count 12.0-14.8 [facility] Erythrocyte distribution wid th [Ratio] by Automated countOrdered By: Maricruz Godoy on 03-14-2024 Erythrocyte distribution width (RBC) [Ratio] 13.5 % Normal 12.0-14.8 [facility] Comment on above: Performed By: #### B MP, MG, CBC ####[facility] [id number] Erythrocytes [#/area] in Uri ne sediment by Automated countOrdered By: Maricruz Godoy on 03-14-2024 RBC Auto (Urine sed) [#/Area] 50-100 [HPF] High 0-4 [facility] RBC Auto (Urine sed) [#/Area] Erythrocytes [#/area] in Urine sediment by Automated count High 0-4 [facility] Erythrocytes [#/volume] in B lood by Automated countOrdered By: Maricruz Godoy on 03-14-2024 RBC (Bld) [#/Vol] 3.79 10*6/uL Low 3.90-5.60 [facility] Comment on above: Performed By: #### B MP, MG, CBC ####[facility] [id number] [address] Glucose [Mass/volume] in Uri ne by Test stripOrdered By: Maricruz Godoy on 03-14-2024 Glucose Test strip (U) [Mass/Vol] Normal mg/dL Normal [facility] Glucose Test strip (U) [Mass/Vol] Glucose [Mass/volume] in Urine by Test strip Normal [facility] Hematocrit Auto (Bld) [Volum e fraction]Ordered By: Maricruz Godoy on 03-14-2024 Hematocrit (Bld) [Volume fraction] Hematocrit [Volume Fraction] of Blood by Automated count Low 38.8-50.0 [facility] Hematocrit [Volume Fraction] of Blood by Automated countOrdered By: Maricruz Godoy on 03-14-2024 Hematocrit (Bld) [Volume fraction] 33.9 % Low 38.8-50.0 [facility] Comment on above: Performed By: #### B MP, MG, CBC ####[facility] [id number] Hemoglobin Test strip Ql (U) Ordered By: Maricruz Godoy on 03-14-2024 Hemoglobin Ql (U) 2+ High Negative [facility] Hemoglobin Ql (U) Hemoglobin [Presence ] in Urine by Test strip High Negative [facility] Hemoglobin [Mass/volume] in BloodOrdered By: Maricruz Godoy on 03-14-2024 Hemoglobin (Bld) [Mass/Vol] 11.3 g/dL Low 13.0-17.0 [facility] Comment on above: Performed By: #### B MP, MG, CBC ####[facility] [id number] Hemoglobin (Bld) [Mass/Vol] Hemoglobin [Mass/volume] in Blood Low 13.0-17.0 [facility] Hyaline casts [#/area] in Ur ine sediment by Automated countOrdered By: Maricruz Godoy on 03-14-2024 Hyaline casts Auto (Urine sed) [#/Area] None [LPF] 0-8 [facility] Hyaline casts Auto (Urine sed) [#/Area] Hyaline casts [#/area] in Urine sediment by Automated count 0-8 [facility] Ketones Test strip Ql (U)Ord ered By: Maricruz Godoy on 03-14-2024 Ketones Ql (U) Ketones [Presence] i n Urine by Test strip Negative [facility] Ketones [Presence] in Urine by Test stripOrdered By: Maricruz Godoy on 03-14-2024 Ketones Ql (U) Negative Normal Negative [facility] Comment on above: Order Comment: Name Collection Type:: Salinas Catheter Performed By: #### C UU, ADDONUAPLUS ####[place] [id number] Laboratory - Microbiology an d Antimicrobial susceptibilityOrdered By: Maricruz Godoy on 03-14-2024 Bacteria identified Cx Nom (U) Strep agalactiae - (group b) Abnormal [facility] Leukocyte clumps [Presence] in Urine by AutomatedOrdered By: Maricruz Godoy on 03-14-2024 Leukocyte clumps Auto Ql (U) Occasional [LPF] High None Seen [facility] Leukocyte clumps Auto Ql (U) Leukocyte clumps [Presence] in Urine by Automated High None Seen [facility] Leukocyte esterase [Presence ] in Urine by Test stripOrdered By: Maricruz Godoy on 03-14-2024 Leukocyte esterase Test strip Ql (U) 3+ High Negative [facility] Comment on above: Order Comment: Name Collection Type:: Salinas Catheter Performed By: #### C UU, ADDONUAPLUS ####[place] [id number] Leukocyte esterase Test strip Ql (U) Leukocyte esterase [Presence] in Urine by Test strip High Negative [facility] Leukocytes [#/area] in Urine sediment by Automated countOrdered By: Maricruz oGdoy on 03-14-2024 WBC Auto (Urine sed) [#/Area] 50-100 [HPF] High 0-4 [facility] WBC Auto (Urine sed) [#/Area] Leukocytes [#/area] in Urine sediment by Automated count High 0-4 [facility] Leukocytes [#/volume] correc junior for nucleated erythrocytes in Blood by Automated counOrdered By: Maricruz Godoy on 03-14-2024 WBC corrected for nucl RBC Auto (Bld) [#/Vol] 7.8 10*3/uL 4.1-10.5 [facility] WBC corrected for nucl RBC Auto (Bld) [#/Vol] Leukocytes [#/volume] corrected for nucleated erythrocytes in Blood by Automated coun 4.1-10.5 [facility] Leukocytes [#/volume] in Blo od by Automated countOrdered By: Maricruz Godoy on 03-14-2024 WBC (Bld) [#/Vol] 7.8 10*3/uL Normal 4.1-10.5 [facility] Comment on above: Performed By: #### B MP, MG, CBC ####[facility] [id number] [place] [id number] [facility] Lymphocytes Auto (Bld) [#/Vo l]Ordered By: Maricruz Godoy on 03-14-2024 Lymphocytes (Bld) [#/Vol] Lymphocytes [#/volume] in Blood by Automated count Low 1.00-4.8 [facility] Lymphocytes [#/volume] in Bl ood by Automated countOrdered By: Maricruz Godoy on 03-14-2024 Lymphocytes (Bld) [#/Vol] 0.7 10*3/uL Low 1.00-4.8 [facility] Comment on above: Performed By: #### B MP, MG, CBC ####[facility] [id number] [address] Lymphocytes/100 WBC Auto (Bl d)Ordered By: Maricruz Godoy on 03-14-2024 Lymphocytes/100 WBC (Bld) Lymphocytes/100 leukocytes in Blood by Automated count . [facility] Lymphocytes/100 leukocytes i n Blood by Automated countOrdered By: Maricruz Godoy on 03-14-2024 Lymphocytes/100 WBC (Bld) 8.5 % Normal . [facility] Comment on above: Performed By: #### B MP, MG, CBC ####[facility] [id number] [place] [id number] [facility] MCH Auto (RBC) [Entitic mass ]Ordered By: Maricruz Godoy on 03-14-2024 MCH (RBC) [Entitic mass] MCH [Entitic mass] by Automated count 27.5-35.2 [facility] MCH [Entitic mass] by Automa junior countOrdered By: Maricruz Godoy on 03-14-2024 MCH (RBC) [Entitic mass] 29.7 pg Normal 27.5-35.2 [facility] Comment on above: Performed By: #### B MP, MG, CBC ####[facility] [id number] [place] [id number] [facility] MCHC Auto (RBC) [Mass/Vol]Or dered By: Maricruz Godoy on 03-14-2024 MCHC (RBC) [Mass/Vol] 33.3 g/dL 32.5-35.6 [facility] MCHC (RBC) [Mass/Vol] MCHC [Mass/volume] by Automated count 32.5-35.6 [facility] MCV Auto (RBC) [Entitic vol] Ordered By: Maricruz Godoy on 03-14-2024 MCV (RBC) [Entitic vol] MCV [Entitic vol ume] by Automated count 83.5-101 [facility] MCV [Entitic volume] by Auto mated countOrdered By: Maricruz Godoy on 03-14-2024 MCV (RBC) [Entitic vol] 89.3 fL Normal 83.5-101 F [facility] Comment on above: Performed By: #### B MP, MG, CBC ####[facility] [id number] MR head/brain wo conon 03-14 MR head/brain wo con Normal [facility] Magnesium [Mass/volume] in S christine or PlasmaOrdered By: Maricruz Godoy on 03-14-2024 Magnesium [Mass/Vol] 1.8 mg/dL Low 1.9-2.7 [facility] Comment on above: Result Comment: PERF ORMED BY:[address] [place], [place] [phone] MEDICAL DIRECTORBETHANY ALBRIGHT M.D. Performed By: #### B MP, MG, CBC ####[place] [id number] [facility] Magnesium [Mass/Vol] Magnesium [Mass/vol ume] in Serum or Plasma Low 1.9-2.7 [facility] Monocytes Auto (Bld) [#/Vol] Ordered By: Maricruz Godoy on 03-14-2024 Monocytes (Bld) [#/Vol] Automated blood monocyte count High 0.0-0.8 [facility] Monocytes/100 WBC Auto (Bld) Ordered By: Maricruz Godoy on 03-14-2024 Monocytes/100 WBC (Bld) Automated monocyte % . [facility] Mucus [Presence] in Urine by AutomatedOrdered By: Maricruz Godoy on 03-14-2024 Mucus Auto Ql (U) Rare [LPF] [facility] Mucus Auto Ql (U) Mucus [Presence] in Urine by Automated [facility] Neutrophils Auto (Bld) [#/Vo l]Ordered By: Maricruz Godoy on 03-14-2024 Neutrophils (Bld) [#/Vol] Neutrophils [#/volume] in Blood by Automated count 1.8-7.7 [facility] Neutrophils [#/volume] in Bl ood by Automated countOrdered By: Maricruz Godoy on 03-14-2024 Neutrophils (Bld) [#/Vol] 6.0 10*3/uL Normal 1.8-7.7 [facility] Comment on above: Performed By: #### B MP, MG, CBC ####[facility] [id number] Neutrophils/100 WBC Auto (Bl d)Ordered By: Maricruz Godoy on 03-14-2024 Neutrophils/100 WBC (Bld) Automated neutrophil % . [facility] Nitrite Test strip Ql (U)Ord ered By: Maricruz Godoy on 03-14-2024 Nitrite Ql (U) Negative Negative [facility] Nitrite Ql (U) Nitrite [Presence] i n Urine by Test strip Negative [facility] Nucleated erythrocytes [Pres ence] in Blood by Automated countOrdered By: Maricruz Godoy on 03-14-2024 Nucleated RBC Auto Ql (Bld) 0.1 /100{WBC} 0-0.5 [facility] Nucleated RBC Auto Ql (Bld) Nucleated erythrocytes [Presence] in Blood by Automated count 0-0.5 [facility] Platelet mean volume Auto (B ld) [Entitic vol]Ordered By: Maricruz Godoy on 03-14-2024 Platelet mean volume (Bld) [Entitic vol] Platelet mean volume [Entitic volume] in Blood by Automated count 6.6-10.1 [facility] Platelet mean volume [Entiti c volume] in Blood by Automated countOrdered By: Maricruz Godoy on 03-14-2024 Platelet mean volume (Bld) [Entitic vol] 8.0 fL Normal 6.6-10.1 [facility] Comment on above: Performed By: #### B MP, MG, CBC ####[facility] Platelets Auto (Bld) [#/Vol] Ordered By: Maricruz Godoy on 03-14-2024 Platelets (Bld) [#/Vol] Platelets [#/vol ume] in Blood by Automated count 150-450 [facility] Platelets [#/volume] in Bloo d by Automated countOrdered By: Maricruz Godoy on 03-14-2024 Platelets (Bld) [#/Vol] 290 10*3/uL Normal 150-450 [facility] Comment on above: Performed By: #### B MP, MG, CBC ####[place] [id number] Protein Test strip (U) [Mass /Vol]Ordered By: Maricruz Godoy on 03-14-2024 Protein (U) [Mass/Vol] Protein [Mass/vol ume] in Urine by Test strip High Negative [facility] Protein [Mass/volume] in Uri ne by Test stripOrdered By: Maricruz Godoy on 03-14-2024 Protein (U) [Mass/Vol] 70 mg/dL High Negative [facility] Comment on above: Order Comment: Name Collection Type:: [place]inas Catheter Performed By: #### C UU, ADDONUAPLUS ####[address] RBC Auto (Bld) [#/Vol]Ordere d By: Maricruz Godoy on 03-14-2024 RBC (Bld) [#/Vol] Erythrocytes [#/volu me] in Blood by Automated count Low 3.90-5.60 [facility] Specific gravity Test strip (U) [Rel density]Ordered By: Maricruz Godoy on 03-14-2024 Specific gravity (U) [Rel density] 1.046 High 1.001-1.03 0 [facility] Specific gravity (U) [Rel density] Specific gravity of Urine by Test strip High 1.001-1.03 0 [facility] Urine Cultureon 03-14-2024 Bacteria identified Cx Nom (U) ORGANISM: Strep agalactiae - (group b) (O:STRAGA) [place] Count 40,000 PERFORMED BY: [facility] [address] [place] [address] PATHOLOGIST [employer] BETHANY ALBRIGHT M.D. Normal [facility] Comment on above: Performed By: #### C UU, ADDONUAPLUS ####[facility] [id number] [address] Urine appearanceOrdered By: Maricruz Godoy on 03-14-2024 Appearance (U) Clear Normal Clear [facility] Comment on above: Order Comment: Name Collection Type:: [place] Catheter Performed By: #### C UU, ADDONUAPLUS ####[address] Urine cultureOrdered By: Jo-Ann Bingham on 03-14-2024 Bacteria identified Cx Nom (U) Group B Strep (Streptococcus agalactiae) Abnormal [facility] Urobilinogen Test strip (U) [Mass/Vol]Ordered By: Maricruz Godoy on 03-14-2024 Urobilinogen (U) [Mass/Vol] Normal mg/dL Normal [facility] Urobilinogen (U) [Mass/Vol] Urobilinogen [Mass/volume] in Urine by Test strip Normal [facility] WBC Auto (Bld) [#/Vol]Ordere d By: Maricruz Godoy on 03-14-2024 WBC (Bld) [#/Vol] Leukocytes [#/volume ] in Blood by Automated count 4.1-10.5 [facility] pH Test strip (U)Ordered By: Maricruz Godoy on 03-14-2024 pH (U) pH of Urine by Test strip 5.0-9.0 [facility] pH of Urine by Test stripOrd ered By: Maricruz Godoy on 03-14-2024 pH (U) 5.5 [pH] Normal 5.0-9.0 [facility] Comment on above: Order Comment: Name Collection Type:: [place] Catheter Performed By: #### C UNestor, MEGHA ####[facility] [id number] [place] [address] [facility] Basophils Auto (Bld) [#/Vol] on 03-13-2024 Basophils (Bld) [#/Vol] 0.0 10 3/uL 0.0-0.1 [facility] Basophils (Bld) [#/Vol] Automated basophil count 0.0-0.1 [facility] Basophils/100 WBC Auto (Bld) on 03-13-2024 Basophils/100 WBC (Bld) 0.5 % 0.2-2.0 F [facility] [facility] Basophils/100 WBC (Bld) Automated basophil % 0. 2-2.0 [facility] Buprenorphine [Presence] in Urineon 03-13-2024 Buprenorphine Ql (U) Negative NEGATIVE [facility] Comment on above: DRUG CLASS TEST SYST EM CUT-OFF CONCENTRATIONS ARE ASFOLLOWS:AMP (Amphetamine): 500 ng/mLBAR (Barbiturates): 200 ng/mLBZO (Benzodiazepines): 150 ng/mLBUP (Buprenorphine): 10 ng/mLCOC (Cocaine): 150 ng/mLmAMP (Methamphetamine): 500 ng/mLMTD (Methadone): 200 ng/mLOPI (Opiates): 100 ng/mLOXY (Oxycodone): 100 ng/mLPCP (Phencyclidine): 25 ng/mLTHC (Cannabinoids): 50 ng/mLTCA (Trycyclic Antidepressants): 300 ng/mL Buprenorphine Ql (U) Buprenorphine [Pres ence] in Urine NEGATIVE [facility] Comment on above: DRUG CLASS TEST SYST EM CUT-OFF CONCENTRATIONS ARE ASFOLLOWS:AMP (Amphetamine): 500 ng/mLBAR (Barbiturates): 200 ng/mLBZO (Benzodiazepines): 150 ng/mLBUP (Buprenorphine): 10 ng/mLCOC (Cocaine): 150 ng/mLmAMP (Methamphetamine): 500 ng/mLMTD (Methadone): 200 ng/mLOPI (Opiates): 100 ng/mLOXY (Oxycodone): 100 ng/mLPCP (Phencyclidine): 25 ng/mLTHC (Cannabinoids): 50 ng/mLTCA (Trycyclic Antidepressants): 300 ng/mL CT abdomen pelvis wo conon 1 CT abdomen pelvis wo con Normal [facility] ECG 12 lead ECGon 03-13-2024 ECG 12 lead ECG Normal [facility] Eosinophils/100 WBC Auto (Bl d)on 03-13-2024 Eosinophils/100 WBC (Bld) 1.3 % 0.9-7.0 [facility] Eosinophils/100 WBC (Bld) Automated eosinophil % 0.9-7.0 [facility] Erythrocyte distribution wid th Auto (RBC) [Ratio]on 03-13-2024 Erythrocyte distribution width (RBC) [Ratio] 12.8 % 11.0-15.0 [facility] Erythrocyte distribution width (RBC) [Ratio] Erythrocyte distribution width [Ratio] by Automated count 11.0-15.0 [facility] Estimated glomerular filtrat ion rate (GFR) non- Americanon 03-13-2024 GFR/1.73 sq M.predicted among non-blacks MDRD (S/P/Bld) [Vol rate/Area] mL/min/{1.73_m2} >=60 mL/min/1.7 3m 2 [facility] GFR/1.73 sq M.predicted among non-blacks MDRD (S/P/Bld) [Vol rate/Area] Estimated glomerular filtration rate (GFR) non- >=60 mL/min/1.7 3m 2 [facility] Globulin Calc (S) [Mass/Vol] on 03-13-2024 Globulin (S) [Mass/Vol] 3.6 g/dL F [facility] Globulin (S) [Mass/Vol] Serum globulin m easurement by calculation (mass/volume) [facility] Hematocrit Auto (Bld) [Volum e fraction]on 03-13-2024 Hematocrit (Bld) [Volume fraction] 33.4 % Low 42.0-54.0 [facility] Hematocrit (Bld) [Volume fraction] Hematocrit [Volume Fraction] of Blood by Automated count Low 42.0-54.0 [facility] Hemoglobin [Mass/volume] in Bloodon 03-13-2024 Hemoglobin (Bld) [Mass/Vol] 11.1 g/dL Low 14.0-18.0 [facility] Hemoglobin (Bld) [Mass/Vol] Hemoglobin [Mass/volume] in Blood Low 14.0-18.0 [facility] INR in Platelet poor plasma by Coagulation assayon 03-13-2024 INR Coag (PPP) [Relative time] 1.07 {INR} [facility] Comment on above: DESIRED INR:2.0-3.0 CONDITIONS NOT LISTED BELOW2.5-3.5 FOR PROSTHETIC HEART VALVE REPLACEMENT2.5-3.5 RECURRENT THROMBOSIS INR Coag (PPP) [Relative time] INR in Platelet poor plasma by Coagulation assay [facility] Comment on above: DESIRED INR:2.0-3.0 CONDITIONS NOT LISTED BELOW2.5-3.5 FOR PROSTHETIC HEART VALVE REPLACEMENT2.5-3.5 RECURRENT THROMBOSIS Laboratory - Chemistry and C hemistry - challengeon 03-13-2024 Ammonia (P) [Moles/Vol] 20 umol/L 11-32 [facility] Albumin [Mass/Vol] 2.9 g/dL Low 3.4-5.0 [facility] ALP [Catalytic activity/Vol] 85 U/L 46-116 [facility] ALT [Catalytic activity/Vol] 17 U/L 16-63 [facility] AST [Catalytic activity/Vol] 17 U/L 15-37 [facility] Bilirubin [Mass/Vol] 0.6 mg/dL 0.2-1.0 [facility] Calcium [Mass/Vol] 8.7 mg/dL 8.5-10.1 [facility] Chloride [Moles/Vol] 101 mmol/L 98-107 [facility] CO2 [Moles/Vol] 27.1 mmol/L 21.0-32.0 [facility] Creatinine [Mass/Vol] 0.94 mg/dL 0.70-1.30 [facility] GFR/1.73 sq M.predicted MDRD (S/P/Bld) [Vol rate/Area] mL/min/{1.73_m2} >=60 mL/min/1.7 3m 2 [facility] Glucose [Mass/Vol] 91 mg/dL 74-106 [facility] Lipase [Catalytic activity/Vol] 29.0 U/L 16.0-77.0 [facility] Magnesium [Mass/Vol] 1.5 mg/dL Low 1.8-2.4 [facility] Potassium [Moles/Vol] 3.6 mmol/L 3.5-5.1 [facility] Protein [Mass/Vol] 6.5 g/dL 6.4-8.2 [facility] Sodium [Moles/Vol] 137 mmol/L 136-145 [facility] Urea nitrogen [Mass/Vol] 17.0 mg/dL 7.0-18.0 [facility] Urea nitrogen/Creatinine [Mass ratio] 18.1 mg/mg [facility] Laboratory - Drug toxicology on 03-13-2024 Amphetamines Ql (U) Negative NEGATIVE [facility] Benzodiazepines Ql (U) Negative NEGATIVE [facility] Cocaine Ql (U) Negative NEGATIVE [facility] Opiates Ql (U) Positive Abnormal NEGATIVE [facility] Phencyclidine Ql (U) Negative NEGATIVE [facility] Laboratory - Hematology and Cell countson 03-13-2024 Immature granulocytes/100 WBC (Bld) 0.6 % High 0.0-0.5 [facility] Leukocytes [#/volume] correc junior for nucleated erythrocytes in Blood by Automated counon 03-13-2024 WBC corrected for nucl RBC Auto (Bld) [#/Vol] 8.7 10 3/uL 4.0-11.0 [facility] WBC corrected for nucl RBC Auto (Bld) [#/Vol] Leukocytes [#/volume] corrected for nucleated erythrocytes in Blood by Automated coun .0-11.0 [facility] Lymphocytes Auto (Bld) [#/Vo l]on 03-13-2024 Lymphocytes (Bld) [#/Vol] 0.8 10 3/uL Low 1.2-3.8 [facility] Lymphocytes (Bld) [#/Vol] Lymphocytes [#/volume] in Blood by Automated count Low 1.2-3.8 [facility] Lymphocytes/100 WBC Auto (Bl d)on 03-13-2024 Lymphocytes/100 WBC (Bld) 8.8 % Low 20.5-60.0 [facility] Lymphocytes/100 WBC (Bld) Lymphocytes/100 leukocytes in Blood by Automated count Low 20.5-60.0 [facility] MCH Auto (RBC) [Entitic mass ]on 03-13-2024 MCH (RBC) [Entitic mass] 29.5 pg 25.9-34.0 [facility] MCH (RBC) [Entitic mass] MCH [Entitic mass] by Automated count 25.9-34.0 [facility] MCHC Auto (RBC) [Mass/Vol]on 03-13-2024 MCHC (RBC) [Mass/Vol] 33.2 g/dL 29.9-35.2 [facility] MCHC (RBC) [Mass/Vol] MCHC [Mass/volume] by Automated count 29.9-35.2 [facility] MCV Auto (RBC) [Entitic vol] on 03-13-2024 MCV (RBC) [Entitic vol] 88.8 fL 80.0-94.0 [facility] MCV (RBC) [Entitic vol] MCV [Entitic vol ume] by Automated count 80.0-94.0 [facility] Methadone [Presence] in Urin e by Screen methodon 03-13-2024 Methadone Screen Ql (U) Negative NEGATIVE [facility] Methadone Screen Ql (U) Methadone [Prese nce] in Urine by Screen method NEGATIVE [facility] Monocytes Auto (Bld) [#/Vol] on 03-13-2024 Monocytes (Bld) [#/Vol] 1.1 10 3/uL High 0.3-0.8 [facility] Monocytes (Bld) [#/Vol] Automated blood monocyte count High 0.3-0.8 [facility] Monocytes/100 WBC Auto (Bld) on 03-13-2024 Monocytes/100 WBC (Bld) 12.5 % High 1.7-12.0 [facility] Monocytes/100 WBC (Bld) Automated monocyte % High 1. 7-12.0 [facility] Neutrophils Auto (Bld) [#/Vo l]on 03-13-2024 Neutrophils (Bld) [#/Vol] 6.6 10 3/uL High 1.4-6.5 [facility] Neutrophils (Bld) [#/Vol] Neutrophils [#/volume] in Blood by Automated count High 1.4-6.5 [facility] Neutrophils/100 WBC Auto (Bl d)on 03-13-2024 Neutrophils/100 WBC (Bld) 76.3 % High 43.0-75.0 [facility] Neutrophils/100 WBC (Bld) Automated neutrophil % High 43.0-75.0 [facility] No Panel Informationon 03-13 Urine Barbiturates Screen Negative NEGATIVE [facility] Urine Marijuana (THC) Screen Negative NEGATIVE [facility] Urine Methamphetamines Screen Negative NEGATIVE [facility] Eosinophils # (Auto) 0.1 10 3/uL 0.0-0.7 [facility] Ethyl Alcohol Level <3 mg/dL [facility] Comment on above: NOTE: 80 mg/dl is th e legal limit for a blood alcohol level Immature Granulocyte # (Auto) 0.05 10 3/uL High 0.00-0.03 [facility] Troponin I High Sensitivity 8.8 pg/mL 4.0-76.1 [facility] Comment on above: CUT-OFF POINTS HAVE [...] volume (Bld) [Entitic vol] 9.5 fL 9.5-13.5 [facility] Platelet mean volume (Bld) [Entitic vol] Platelet mean volume [Entitic volume] in Blood by Automated count 9.5-13.5 [facility] Platelets Auto (Bld) [#/Vol] on 03-13-2024 Platelets (Bld) [#/Vol] 300 10 3/uL 150-450 [facility] Platelets (Bld) [#/Vol] Platelets [#/vol ume] in Blood by Automated count 150-450 [facility] Prothrombin time (PT)on 02-14 PT Coag (PPP) [Time] 11.3 s 9.0-11.6 [facility] PT Coag (PPP) [Time] Prothrombin time (PT) 9.0- 11.6 [facility] RBC Auto (Bld) [#/Vol]on RBC (Bld) [#/Vol] 3.76 10 6/uL Low 4.70-6.10 [facility] RBC (Bld) [#/Vol] Erythrocytes [#/volu me] in Blood by Automated count Low 4.70-6.10 [facility] Serum or plasma albumin/glob ulin mass ratioon 03-13-2024 Albumin/Globulin [Mass ratio] 0.8 {ratio} [facility] Albumin/Globulin [Mass ratio] Serum or plasma albumin/globulin mass ratio [facility] Serum or plasma anion gap de terminationon 03-13-2024 Anion gap [Moles/Vol] 12.5 [facility] Anion gap [Moles/Vol] Serum or plasma an ion gap determination [facility] Urine tricyclic antidepressa nt measurementon 03-13-2024 Tricyclic antidepressants (U) [Mass/Vol] Negative NEGATIVE [facility] Tricyclic antidepressants (U) [Mass/Vol] Urine tricyclic antidepressant measurement NEGATIVE [facility] oxyCODONE+oxyMORphone [Prese nce] in Urine by Screen methodon 03-13-2024 oxyCODONE+oxyMORphone Screen Ql (U) Negative NEGATIVE [facility] oxyCODONE+oxyMORphone Screen Ql (U) oxyCODONE+oxyMORphone [Presence] in Urine by Screen method NEGATIVE [facility] Basophils Auto (Bld) [#/Vol] on 03-06-2024 Basophils (Bld) [#/Vol] 0.0 10 3/uL 0.0-0.1 [facility] Basophils (Bld) [#/Vol] Automated basophil count 0.0-0.1 [facility] Basophils/100 WBC Auto (Bld) on 03-06-2024 Basophils/100 WBC (Bld) 0.3 % 0.2-2.0 [facility] Basophils/100 WBC (Bld) Automated basophil % 0. 2-2.0 [facility] Eosinophils/100 WBC Auto (Bl d)on 03-06-2024 Eosinophils/100 WBC (Bld) 1.7 % 0.9-7.0 [facility] Eosinophils/100 WBC (Bld) Automated eosinophil % 0.9-7.0 [facility] Erythrocyte distribution wid th Auto (RBC) [Ratio]on 03-06-2024 Erythrocyte distribution width (RBC) [Ratio] 12.8 % 11.0-15.0 [facility] Erythrocyte distribution width (RBC) [Ratio] Erythrocyte distribution width [Ratio] by Automated count 11.0-15.0 [facility] Estimated glomerular filtrat ion rate (GFR) non- Americanon 03-06-2024 GFR/1.73 sq M.predicted among non-blacks MDRD (S/P/Bld) [Vol rate/Area] mL/min/{1.73_m2} >=60 mL/min/1.7 3m 2 [facility] GFR/1.73 sq M.predicted among non-blacks MDRD (S/P/Bld) [Vol rate/Area] Estimated glomerular filtration rate (GFR) non- >=60 mL/min/1.7 3m 2 [facility] Fibrin D-dimer [Presence] in Platelet poor plasma by Latex agglutinationon 03-06-2024 Fibrin D-dimer LA Ql (PPP) 0.33 mg/L FEU <=0.59 [facility] Comment on above: Increases in D-Dimer [...] Platelet poor plasma by Latex agglutination <=0.59 [facility] Comment on above: Increases in D-Dimer [...] (Bld) [Volume fraction] 35.6 % Low 42.0-54.0 [facility] Hematocrit (Bld) [Volume fraction] Hematocrit [Volume Fraction] of Blood by Automated count Low 42.0-54.0 [facility] Hemoglobin [Mass/volume] in Bloodon 03-06-2024 Hemoglobin (Bld) [Mass/Vol] 11.7 g/dL Low 14.0-18.0 [facility] Hemoglobin (Bld) [Mass/Vol] Hemoglobin [Mass/volume] in Blood Low 14.0-18.0 [facility] Laboratory - Chemistry and C hemistry - challengeon 03-06-2024 Calcium [Mass/Vol] 9.4 mg/dL 8.5-10.1 [facility] Chloride [Moles/Vol] 97 mmol/L Low 98-107 [facility] CO2 [Moles/Vol] 29.5 mmol/L 21.0-32.0 [facility] Creatinine [Mass/Vol] 1.07 mg/dL 0.70-1.30 [facility] GFR/1.73 sq M.predicted MDRD (S/P/Bld) [Vol rate/Area] mL/min/{1.73_m2} >=60 mL/min/1.7 3m 2 [facility] Glucose [Mass/Vol] 99 mg/dL 74-106 [facility] Potassium [Moles/Vol] 4.4 mmol/L 3.5-5.1 [facility] Sodium [Moles/Vol] 135 mmol/L Low 136-145 [facility] Urea nitrogen [Mass/Vol] 13.0 mg/dL 7.0-18.0 [facility] Urea nitrogen/Creatinine [Mass ratio] 12.1 mg/mg [facility] Laboratory - Hematology and Cell countson 03-06-2024 Immature granulocytes/100 WBC (Bld) 0.7 % High 0.0-0.5 [facility] Laboratory - Microbiology an d Antimicrobial susceptibilityon 03-06-2024 SARS-CoV-2 (COVID-19) RNA HOWIE+probe Ql (Unsp spec) Negative NEGATIVE [facility] Comment on above: This test has not be en FDA cleared or approved, but has beenauthorized by the FDA under an Emergency Use Authorization(EUA) for use by authorized laboratories certified underIA that meet the requirements to perform moderate [...] Auto (Bld) [#/Vol] 8.9 10 3/uL 4.0-11.0 [facility] WBC corrected for nucl RBC Auto (Bld) [#/Vol] Leukocytes [#/volume] corrected for nucleated erythrocytes in Blood by Automated coun .0-11.0 [facility] Lymphocytes Auto (Bld) [#/Vo l]on 03-06-2024 Lymphocytes (Bld) [#/Vol] 0.8 10 3/uL Low 1.2-3.8 [facility] Lymphocytes (Bld) [#/Vol] Lymphocytes [#/volume] in Blood by Automated count Low 1.2-3.8 [facility] Lymphocytes/100 WBC Auto (Bl d)on 03-06-2024 Lymphocytes/100 WBC (Bld) 8.9 % Low 20.5-60.0 [facility] Lymphocytes/100 WBC (Bld) Lymphocytes/100 leukocytes in Blood by Automated count Low 20.5-60.0 [facility] MCH Auto (RBC) [Entitic mass ]on 03-06-2024 MCH (RBC) [Entitic mass] 29.8 pg 25.9-34.0 [facility] MCH (RBC) [Entitic mass] MCH [Entitic mass] by Automated count 25.9-34.0 [facility] MCHC Auto (RBC) [Mass/Vol]on 03-06-2024 MCHC (RBC) [Mass/Vol] 32.9 g/dL 29.9-35.2 [facility] MCHC (RBC) [Mass/Vol] MCHC [Mass/volume] by Automated count 29.9-35.2 [facility] MCV Auto (RBC) [Entitic vol] on 03-06-2024 MCV (RBC) [Entitic vol] 90.6 fL 80.0-94.0 [facility] MCV (RBC) [Entitic vol] MCV [Entitic vol ume] by Automated count 80.0-94.0 [facility] Monocytes Auto (Bld) [#/Vol] on 03-06-2024 Monocytes (Bld) [#/Vol] 1.1 10 3/uL High 0.3-0.8 [facility] Monocytes (Bld) [#/Vol] Automated blood monocyte count High 0.3-0.8 [facility] Monocytes/100 WBC Auto (Bld) on 03-06-2024 Monocytes/100 WBC (Bld) 12.8 % High 1.7-12.0 [facility] Monocytes/100 WBC (Bld) Automated monocyte % High 1. 7-12.0 [facility] Neutrophils Auto (Bld) [#/Vo l]on 03-06-2024 Neutrophils (Bld) [#/Vol] 6.7 10 3/uL High 1.4-6.5 [facility] Neutrophils (Bld) [#/Vol] Neutrophils [#/volume] in Blood by Automated count High 1.4-6.5 [facility] Neutrophils/100 WBC Auto (Bl d)on 03-06-2024 Neutrophils/100 WBC (Bld) 75.6 % High 43.0-75.0 [facility] Neutrophils/100 WBC (Bld) Automated neutrophil % High 43.0-75.0 [facility] No Panel Informationon 03-06 Bedside Influenza Type A Antigen Negative [facility] Comment on above: Negative for Flu A p rotein antigen. Infection due to Flu Acannot be ruled out. Flu A antigen in the sample may bebelow the detection limit of the test. Bedside Influenza Type B Antigen Negative [facility] Comment on above: Negative for Flu B p rotein antigen. Infection due to Flu Bcannot be ruled out. Flu B antigen in the sample may bebelow the detection limit of the test. Eosinophils # (Auto) 0.2 10 3/uL 0.0-0.7 [facility] Immature Granulocyte # (Auto) 0.06 10 3/uL High 0.00-0.03 [facility] Troponin I High Sensitivity 5.0 pg/mL 4.0-76.1 [facility] Comment on above: CUT-OFF POINTS HAVE [...] volume (Bld) [Entitic vol] 9.5 fL 9.5-13.5 [facility] Platelet mean volume (Bld) [Entitic vol] Platelet mean volume [Entitic volume] in Blood by Automated count 9.5-13.5 [facility] Platelets Auto (Bld) [#/Vol] on 03-06-2024 Platelets (Bld) [#/Vol] 314 10 3/uL 150-450 [facility] Platelets (d) [#/Vol] Platelets [#/vol ume] in Blood by Automated count 150-450 [facility] RBC Auto (d) [#/Vol]on RBC (Bld) [#/Vol] 3.93 10 6/uL Low 4.70-6.10 [facility] RBC (d) [#/Vol] Erythrocytes [#/volu me] in Blood by Automated count Low 4.70-6.10 [facility] Serum or plasma anion gap de terminationon 03-06-2024 Anion gap [Moles/Vol] 12.9 mmol/L [facility] Anion gap [Moles/Vol] Serum or plasma an ion gap determination [facility] Carbon dioxide, total [Moles /volume] in Serum or PlasmaOrdered By: Shannon Gonzalez on 03-01-2024 CO2 [Moles/Vol] 30.2 mmol/L Normal 21.0-31.0 [facility] Comment on above: Performed By: #### L YTES ####[facility] [id number] [facility] CO2 [Moles/Vol] Carbon dioxide, tota l [Moles/volume] in Serum or Plasma 21.0-31.0 [facility] Chloride [Moles/volume] in S christine or PlasmaOrdered By: Shannon Gonzalez on 03-01-2024 Chloride [Moles/Vol] 92 mmol/L Low 98-107 [facility] Comment on above: Performed By: #### L YTES ####[facility] [id number] [place] [address] [facility] Chloride [Moles/Vol] Chloride [Moles/vol ume] in Serum or Plasma Low 98-107 [facility] ECG 12 lead ECGon 03-01-2024 ECG 12 lead ECG Normal [facility] ECG post procedureon 024 ECG post procedure Normal [facility] Potassium [Moles/volume] in Serum or PlasmaOrdered By: Shannon Gonzalez on 03-01-2024 Potassium [Moles/Vol] 3.9 mmol/L Normal 3.5-5.1 [facility] Comment on above: Hemolysis is present at a level that could interfere with the result.Contact lab if redraw is required Result Comment: Hemo lysis is present at a level that could interfere with the result. Contact lab if redraw is required Performed By: #### L YTES ####[address] [address] [facility] Potassium [Moles/Vol] Potassium [Moles/v olume] in Serum or Plasma 3.5-5.1 [facility] Comment on above: Hemolysis is present at a level that could interfere with the result.Contact lab if redraw is required Serum or plasma anion gap de terminationOrdered By: Shannon Gonzalez on 03-01-2024 Anion gap [Moles/Vol] 11.7 mmol/L Normal 6.0-15.0 [facility] Comment on above: Result Comment: PERF ORMED BY:[address] [place], [place] [id number] MEDICAL DIRECTORBETHANY ALBRIGHT M.D. Performed By: #### L YTES ####[address] [address] [facility] Anion gap [Moles/Vol] Serum or plasma an ion gap determination 6.0-15.0 [facility] Sodium [Moles/volume] in Ser um or PlasmaOrdered By: Shannon Gonzalez on 03-01-2024 Sodium [Moles/Vol] 130 mmol/L Low 136-145 [facility] Comment on above: Performed By: #### L YTES ####[address] [address] [facility] Sodium [Moles/Vol] Sodium [Moles/volume ] in Serum or Plasma Low 136-145 [facility] Basic Metabolic Panelon 02-12 Anion gap [Moles/Vol] 10.6 mmol/L Normal 6.0-15.0 [facility] Comment on above: Performed By: #### B MP, MG ####[facility] [place] [address] [facility] Chloride [Moles/Vol] 94 mmol/L Low 98-107 [facility] Comment on above: Performed By: #### B MP, MG ####[address] [place] [address] [facility] CO2 [Moles/Vol] 29.2 mmol/L Normal 21.0-31.0 [facility] Comment on above: Performed By: #### B MP, MG ####[address] [place] [address] [facility] Creatinine Clr Calc Pharmacy 95.65 Normal [facility] Comment on above: Performed By: #### B MP, MG ####[address] [place] [address] [facility] GFR/1.73 sq M.predicted MDRD (S/P/Bld) [Vol rate/Area] mL/min/{1.73_m2} Normal [facility] Comment on above: Performed By: #### B MP, MG ####[address] [address] [facility] Potassium [Moles/Vol] 3.8 mmol/L Normal 3.5-5.1 [facility] Comment on above: Performed By: #### B MP, MG ####[address] [address] [facility] Sodium [Moles/Vol] 130 mmol/L Low 136-145 [facility] Comment on above: Performed By: #### B MP, MG ####[address] [address] [facility] Calcium [Mass/volume] in Ser um or PlasmaOrdered By: Maricruz Godoy on 02-29-2024 Calcium [Mass/Vol] 8.6 mg/dL Normal 8.6-10.3 [facility] Comment on above: Performed By: #### B MP, MG ####[address] [address] [facility] Calcium [Mass/Vol] Calcium [Mass/volume ] in Serum or Plasma 8.6-10.3 [facility] Creatinine [Mass/volume] in Serum or PlasmaOrdered By: Maricruz Godoy on 02-29-2024 Creatinine [Mass/Vol] 0.69 mg/dL Low 0.70-1.30 [facility] Comment on above: Performed By: #### B MP, MG ####[facility] [id number] [place] [address] [facility] Creatinine [Mass/Vol] Creatinine [Mass/v olume] in Serum or Plasma Low 0.70-1.30 [facility] ECH echo limitedon ECH echo limited Normal [facility] Glucose [Mass/volume] in Ser um or PlasmaOrdered By: Maricruz Godoy on 02-29-2024 Glucose [Mass/Vol] 86 mg/dL Normal 70-100 [facility] Comment on above: ADA recommended refe rence rangeRandom Glucose Reference Range is dependent on time and content of last meal. Glucose of more than 200 mg/dL in a nonstressed, ambulatory subject supports the diagnosis of Diabetes Mellitus. Result Comment: [place] om Glucose Reference Range is dependent on time and content of last meal. Glucose of more than 200 mg/dL in a nonstressed, ambulatory subject supports the diagnosis of Diabetes Mellitus. ADA recommended reference range Performed By: #### B MP, MG ####[facility] [id number] [place] [address] [facility] Glucose [Mass/Vol] Glucose [Mass/volume ] in Serum or Plasma 70-100 [facility] Comment on above: ADA recommended refe rence rangeRandom Glucose Reference Range is dependent on time and content of last meal. Glucose of more than 200 mg/dL in a nonstressed, ambulatory subject supports the diagnosis of Diabetes Mellitus. Magnesium [Mass/volume] in S christine or PlasmaOrdered By: Maricruz Godoy on 02-29-2024 Magnesium [Mass/Vol] 1.5 mg/dL Low 1.9-2.7 [facility] Comment on above: Result Comment: PERF ORMED BY:[facility] [place] [phone] MEDICAL DIRECTORBETHANY ALBRIGHT M.D. Performed By: #### B MP, MG ####[facility] [place] [address] [facility] Magnesium [Mass/Vol] Magnesium [Mass/vol ume] in Serum or Plasma Low 1.9-2.7 [facility] No Panel InformationOrdered By: Maricruz Godoy on 02-29-2024 Estimated GFR (CKD-EPI) > 60.0 mL/Min [facility] Creatinine Clearance (Chem 95.65 [facility] Urea nitrogen [Mass/volume] in Serum or PlasmaOrdered By: Maricruz Godoy on 02-29-2024 Urea nitrogen [Mass/Vol] 11 mg/dL Normal 12-06 [facility] Comment on above: Performed By: #### B MP, MG ####[facility] [place] [address] [facility] Urea nitrogen [Mass/Vol] Urea nitrogen [Mass/volume] in Serum or Plasma 12-06 [facility] XR chest 2V*on 02-29-2024 XR chest 2V* Normal [facility] Activated partial thrombopla stin time (aPTT) in platelet poor plasma by coagulation aOrdered By: Sin Mabry on 02-28-2024 aPTT Coag (PPP) [Time] 42.4 s High 25.1-36.5 [facility] Comment on above: A hematocrit value g reater than 55% may lead to inaccurate results in coagulation testing. Patients having hematocrit values >55% require a special collection tube for coagulation studies. Please contact the laboratory at [phone] for redraw instructions. Alanine aminotransferase [En zymatic activity/volume] in Serum or PlasmaOrdered By: Sin Mabry on 02-28-2024 ALT [Catalytic activity/Vol] 10 U/L Normal [facility] Comment on above: Performed By: #### C BC, BNP, BMP, PT, PTT, HEPATIC, CK, HS TROP ####[facility] [place] [address] [facility] ALT [Catalytic activity/Vol] Alanine aminotransferase [Enzymatic activity/volume] in Serum or Plasma [facility] Albumin [Mass/volume] in Ser um or Plasma by Bromocresol green (BCG) dye binding methoOrdered By: Sin Mabry on 02-28-2024 Albumin BCG dye [Mass/Vol] 3.7 g/dL 3.5-5.7 [facility] Albumin BCG dye [Mass/Vol] Albumin [Mass/volume] in Serum or Plasma by Bromocresol green (BCG) dye binding metho 3.5-5.7 [facility] Alkaline phosphatase [Enzyma tic activity/volume] in Serum or PlasmaOrdered By: Sin Mabry on 02-28-2024 ALP [Catalytic activity/Vol] 71 U/L Normal 34-104 [facility] Comment on above: Performed By: #### C BC, BNP, BMP, PT, PTT, HEPATIC, CK, HS TROP ####[place] [id number] [address] ALP [Catalytic activity/Vol] Alkaline phosphatase [Enzymatic activity/volume] in Serum or Plasma 34-104 [facility] Aspartate aminotransferase [ Enzymatic activity/volume] in Serum or PlasmaOrdered By: Sin Mabry on 02-28-2024 AST [Catalytic activity/Vol] 14 U/L Normal 13-39 [facility] Comment on above: Performed By: #### C BC, BNP, BMP, PT, PTT, HEPATIC, CK, HS TROP ####[address] AST [Catalytic activity/Vol] Aspartate aminotransferase [Enzymatic activity/volume] in Serum or Plasma 13-39 [facility] Automated basophil %Ordered By: Sin Mabry on 02-28-2024 Basophils/100 WBC (Bld) 0.4 % Normal . [facility] Comment on above: Performed By: #### C BC, BNP, BMP, PT, PTT, HEPATIC, CK, HS TROP ####[address] Automated basophil countOrde red By: Sin Mabry on 02-28-2024 Basophils (Bld) [#/Vol] 0.0 10*3/uL Normal 0.0-0.2 [facility] Comment on above: Result Comment: PERF ORMED BY:[address] [place], [place] [id number] MEDICAL DIRECTORBETHANY ALBRIGHT M.D. Performed By: #### C BC, BNP, BMP, PT, PTT, HEPATIC, CK, HS TROP ####[address] Automated blood monocyte cou ntOrdered By: Sin Mabry on 02-28-2024 Monocytes (Bld) [#/Vol] 0.6 10*3/uL Normal 0.0-0.8 [facility] Comment on above: Performed By: #### C BC, BNP, BMP, PT, PTT, HEPATIC, CK, HS TROP ####[address] Automated eosinophil %Ordere d By: Sin Mabyr on 02-28-2024 Eosinophils/100 WBC (Bld) 0.9 % Normal . [facility] Comment on above: Performed By: #### C BC, BNP, BMP, PT, PTT, HEPATIC, CK, HS TROP ####[address] Automated eosinophil countOr dered By: Sin Mabry on 02-28-2024 Eosinophils (Bld) [#/Vol] 0.1 10*3/uL Normal 0.0-0.45 [facility] Comment on above: Performed By: #### C BC, BNP, BMP, PT, PTT, HEPATIC, CK, HS TROP ####[address] Automated monocyte %Ordered By: Sin Mabry on 02-28-2024 Monocytes/100 WBC (Bld) 10.0 % Normal . [facility] Comment on above: Performed By: #### C BC, BNP, BMP, PT, PTT, HEPATIC, CK, HS TROP ####[place] [id number] [facility] Automated neutrophil %Ordere d By: Sin Mabry on 02-28-2024 Neutrophils/100 WBC (Bld) 78.8 % Normal . [facility] Comment on above: Performed By: #### C BC, BNP, BMP, PT, PTT, HEPATIC, CK, HS TROP ####[place] [id number] [facility] BNP ser/plasOrdered By: Justino Mabry on 02-28-2024 Natriuretic peptide B (Bld) [Mass/Vol] 614.0 pg/mL High 5-100 [facility] Comment on above: Result Comment: PERF ORMED BY:[address] IB[place]HIMNiecyR[place], [place] [phone] MEDICAL DIRECTORBETHANY ALBRIGHT M.D. Performed By: #### C BC, BNP, BMP, PT, PTT, HEPATIC, CK, HS TROP ####[address] [address] [facility] Basic Metabolic Panelon 02-12 Creatinine Clr Calc Pharmacy 95.65 Normal [facility] Comment on above: Result Comment: PERF ORMED BY:[address] BLOSSOMMargeNiecyR[place], [place] [phone] MEDICAL DIRECTORBETHANY ALBRIGHT M.D. Performed By: #### C BC, BNP, BMP, PT, PTT, HEPATIC, CK, HS TROP ####[address] [address] [facility] GFR/1.73 sq M.predicted MDRD (S/P/Bld) [Vol rate/Area] mL/min/{1.73_m2} Normal [facility] Comment on above: Performed By: #### C BC, BNP, BMP, PT, PTT, HEPATIC, CK, HS TROP ####[address] [address] [facility] Basophils Auto (Bld) [#/Vol] Ordered By: Sin Mabry on 02-28-2024 Basophils (Bld) [#/Vol] Automated basophil count 0.0-0.2 [facility] Basophils/100 WBC Auto (Bld) Ordered By: Sin Mabry on 02-28-2024 Basophils/100 WBC (Bld) Automated basophil % . [facility] Bilirubin.direct [Mass/volum e] in Serum or PlasmaOrdered By: Sin Mabry on 02-28-2024 Bilirubin.direct [Mass/Vol] 0.20 mg/dL High 0.03-0.18 [facility] Bilirubin.direct [Mass/Vol] Bilirubin.direct [Mass/volume] in Serum or Plasma High 0.03-0.18 [facility] Bilirubin.total [Mass/volume ] in Serum or PlasmaOrdered By: Sin Mabry on 02-28-2024 Bilirubin [Mass/Vol] 0.5 mg/dL Normal 0.3-1.0 [facility] Comment on above: Performed By: #### C BC, BNP, BMP, PT, PTT, HEPATIC, CK, HS TROP ####[address] Bilirubin [Mass/Vol] Bilirubin.total [Mass/volume] in Serum or Plasma 0.3-1.0 [facility] Calcium [Mass/volume] in Ser um or PlasmaOrdered By: Sin Mabry on 02-28-2024 Calcium [Mass/Vol] 9.0 mg/dL Normal 8.6-10.3 [facility] Comment on above: Performed By: #### C BC, BNP, BMP, PT, PTT, HEPATIC, CK, HS TROP ####[address] Carbon dioxide, total [Moles /volume] in Serum or PlasmaOrdered By: Sin Mabry on 02-28-2024 CO2 [Moles/Vol] 25.1 mmol/L Normal 21.0-31.0 [facility] Comment on above: Performed By: #### C BC, BNP, BMP, PT, PTT, HEPATIC, CK, HS TROP ####[place] [id number] [facility] Chloride [Moles/volume] in S christine or PlasmaOrdered By: Sin Mabry on 02-28-2024 Chloride [Moles/Vol] 96 mmol/L Low 98-107 [facility] Comment on above: Performed By: #### C BC, BNP, BMP, PT, PTT, HEPATIC, CK, HS TROP ####[address] Complete Blood Count Auto Di ffon 02-28-2024 Mean Corpuscular HGB Conc 33.7 g/dL Normal 32.5-35.6 [facility] Comment on above: Performed By: #### C BC, BNP, BMP, PT, PTT, HEPATIC, CK, HS TROP ####[address] Monocytes/100 WBC (Bld) 19.63 % Normal 0.00-20.00 [facility] Comment on above: Performed By: #### C BC, BNP, BMP, PT, PTT, HEPATIC, CK, HS TROP ####[address] NRBC% 0.1 /100{WBC} Normal 0-0.5 [facility] Comment on above: Performed By: #### C BC, BNP, BMP, PT, PTT, HEPATIC, CK, HS TROP ####[address] Creatine kinase [Enzymatic a ctivity/volume] in Serum or PlasmaOrdered By: Sin Mabry on 02-28-2024 CK [Catalytic activity/Vol] 26 U/L [facility] Comment on above: Performed By: #### C BC, BNP, BMP, PT, PTT, HEPATIC, CK, HS TROP ####[address] CK [Catalytic activity/Vol] Creatine kinase [Enzymatic activity/volume] in Serum or Plasma [facility] Creatinine [Mass/volume] in Serum or PlasmaOrdered By: Sin Mabry on 02-28-2024 Creatinine [Mass/Vol] 0.77 mg/dL Normal 0.70-1.30 [facility] Comment on above: Performed By: #### C BC, BNP, BMP, PT, PTT, HEPATIC, CK, HS TROP ####[address] ECG 12 lead ECGon 02-28-2024 ECG 12 lead ECG Normal [facility] Eosinophils Auto (Bld) [#/Vo l]Ordered By: Sin Mabry on 02-28-2024 Eosinophils (Bld) [#/Vol] Automated eosinophil count 0.0-0.45 [facility] Eosinophils/100 WBC Auto (Bl d)Ordered By: Sin Mabry on 02-28-2024 Eosinophils/100 WBC (Bld) Automated eosinophil % . [facility] Erythrocyte distribution wid th Auto (RBC) [Ratio]Ordered By: Sin Mabry on 02-28-2024 Erythrocyte distribution width (RBC) [Ratio] Erythrocyte distribution width [Ratio] by Automated count 12.0-14.8 [facility] Erythrocyte distribution wid th [Ratio] by Automated countOrdered By: Sin Mabry on 02-28-2024 Erythrocyte distribution width (RBC) [Ratio] 13.8 % Normal 12.0-14.8 [facility] Comment on above: Performed By: #### C BC, BNP, BMP, PT, PTT, HEPATIC, CK, HS TROP ####[facility] Erythrocytes [#/volume] in B lood by Automated countOrdered By: Sin Mabry on 02-28-2024 RBC (Bld) [#/Vol] 4.09 10*6/uL Normal 3.90-5.60 [facility] Comment on above: Performed By: #### C BC, BNP, BMP, PT, PTT, HEPATIC, CK, HS TROP ####[place] [id number] [facility] Globulin Calc (S) [Mass/Vol] Ordered By: Sin Mabry on 02-28-2024 Globulin (S) [Mass/Vol] Serum globulin m easurement by calculation (mass/volume) [facility] Glucose [Mass/volume] in Ser um or PlasmaOrdered By: Sin Mabry on 02-28-2024 Glucose [Mass/Vol] 133 mg/dL High 70-100 [facility] Comment on above: ADA recommended refe rence rangeRandom Glucose Reference Range is dependent on time and content of last meal. Glucose of more than 200 mg/dL in a nonstressed, ambulatory subject supports the diagnosis of Diabetes Mellitus. Result Comment: [facility] Glucose Reference Range is dependent on time and content of last meal. Glucose of more than 200 mg/dL in a nonstressed, ambulatory subject supports the diagnosis of Diabetes Mellitus. ADA recommended reference range Performed By: #### C BC, BNP, BMP, PT, PTT, HEPATIC, CK, HS TROP ####[place] [id number] [address] Hematocrit Auto (Bld) [Volum e fraction]Ordered By: Sin Mabry on 02-28-2024 Hematocrit (Bld) [Volume fraction] Hematocrit [Volume Fraction] of Blood by Automated count Low 38.8-50.0 [facility] Hematocrit [Volume Fraction] of Blood by Automated countOrdered By: Sin Mabry on 02-28-2024 Hematocrit (Bld) [Volume fraction] 36.7 % Low 38.8-50.0 [facility] Comment on above: Performed By: #### C BC, BNP, BMP, PT, PTT, HEPATIC, CK, HS TROP ####[address] Hemoglobin [Mass/volume] in BloodOrdered By: Sin Mabry on 02-28-2024 Hemoglobin (Bld) [Mass/Vol] 12.3 g/dL Low 13.0-17.0 [facility] Comment on above: Performed By: #### C BC, BNP, BMP, PT, PTT, HEPATIC, CK, HS TROP ####[address] Hemoglobin (Bld) [Mass/Vol] Hemoglobin [Mass/volume] in Blood Low 13.0-17.0 [facility] Hepatic Panelon 02-28-2024 Albumin [Mass/Vol] 3.7 g/dL Normal 3.5-5.7 [facility] Comment on above: Performed By: #### C BC, BNP, BMP, PT, PTT, HEPATIC, CK, HS TROP ####[address] Bilirubin,Indirect 0.3 mg/dL Normal [facility] Comment on above: Performed By: #### C BC, BNP, BMP, PT, PTT, HEPATIC, CK, HS TROP ####[place] [id number] [address] Bilirubin.indirect [Mass/Vol] 0.20 mg/dL High 0.03-0.18 [facility] Comment on above: Performed By: #### C BC, BNP, BMP, PT, PTT, HEPATIC, CK, HS TROP ####[facility] INR in Platelet poor plasma by Coagulation assayOrdered By: Sin Mabry on 02-28-2024 INR Coag (PPP) [Relative time] 2.0 {INR} Normal [facility] Comment on above: INR Therapeutic Rang [...] BMP, PT, PTT, HEPATIC, CK, HS TROP ####[facility] INR Coag (PPP) [Relative time] INR in Platelet poor plasma by Coagulation assay [facility] Comment on above: INR Therapeutic Rang [...] RBC Auto (Bld) [#/Vol] 5.9 10*3/uL 4.1-10.5 [facility] WBC corrected for nucl RBC Auto (Bld) [#/Vol] Leukocytes [#/volume] corrected for nucleated erythrocytes in Blood by Automated coun 4.1-10.5 [facility] Leukocytes [#/volume] in Blo od by Automated countOrdered By: Sin Mabry on 02-28-2024 WBC (Bld) [#/Vol] 5.9 10*3/uL Normal 4.1-10.5 [facility] Comment on above: Performed By: #### C BC, BNP, BMP, PT, PTT, HEPATIC, CK, HS TROP ####[facility] [id number] Lymphocytes Auto (Bld) [#/Vo l]Ordered By: Sin Mabry on 02-28-2024 Lymphocytes (Bld) [#/Vol] Lymphocytes [#/volume] in Blood by Automated count Low 1.00-4.8 [facility] Lymphocytes [#/volume] in Bl ood by Automated countOrdered By: Sin Mabry on 02-28-2024 Lymphocytes (Bld) [#/Vol] 0.6 10*3/uL Low 1.00-4.8 [facility] Comment on above: Performed By: #### C BC, BNP, BMP, PT, PTT, HEPATIC, CK, HS TROP ####[facility] [id number] [place] [id number] [facility] Lymphocytes/100 WBC Auto (Bl d)Ordered By: Sin Mabry on 02-28-2024 Lymphocytes/100 WBC (Bld) Lymphocytes/100 leukocytes in Blood by Automated count . [facility] Lymphocytes/100 leukocytes i n Blood by Automated countOrdered By: Sin Mabry on 02-28-2024 Lymphocytes/100 WBC (Bld) 9.9 % Normal . [facility] Comment on above: Performed By: #### C BC, BNP, BMP, PT, PTT, HEPATIC, CK, HS TROP ####[facility] MCH Auto (RBC) [Entitic mass ]Ordered By: Sin Mbary on 02-28-2024 MCH (RBC) [Entitic mass] MCH [Entitic mass] by Automated count 27.5-35.2 [facility] MCH [Entitic mass] by Automa junior countOrdered By: Sin Mabry on 02-28-2024 MCH (RBC) [Entitic mass] 30.2 pg Normal 27.5-35.2 [facility] Comment on above: Performed By: #### C BC, BNP, BMP, PT, PTT, HEPATIC, CK, HS TROP ####[place] [id number] [address] MCHC Auto (RBC) [Mass/Vol]Or dered By: Sin Mabry on 02-28-2024 MCHC (RBC) [Mass/Vol] 33.7 g/dL 32.5-35.6 [facility] MCHC (RBC) [Mass/Vol] MCHC [Mass/volume] by Automated count 32.5-35.6 [facility] MCV Auto (RBC) [Entitic vol] Ordered By: Sin Mabry on 02-28-2024 MCV (RBC) [Entitic vol] MCV [Entitic vol ume] by Automated count 83.5-101 [facility] MCV [Entitic volume] by Auto mated countOrdered By: Sin Mabry on 02-28-2024 MCV (RBC) [Entitic vol] 89.6 fL Normal 83.5-101 [facility] Comment on above: Performed By: #### C BC, BNP, BMP, PT, PTT, HEPATIC, CK, HS TROP ####[address] Monocyte distribution width [Entitic volume] in Blood by AutomatedOrdered By: Sin Mabry on 02-28-2024 Monocyte distribution width Auto (Bld) [Entitic vol] 19.63 % 0.00-20.00 [facility] Monocyte distribution width Auto (Bld) [Entitic vol] Monocyte distribution width [Entitic volume] in Blood by Automated 0.00-20.00 [facility] Monocytes Auto (Bld) [#/Vol] Ordered By: Sin aMbry on 02-28-2024 Monocytes (Bld) [#/Vol] Automated blood monocyte count 0.0-0.8 [facility] Monocytes/100 WBC Auto (Bld) Ordered By: Sin Mabry on 02-28-2024 Monocytes/100 WBC (Bld) Automated monocyte % . [facility] Natriuretic peptide B [Mass/ Vol]Ordered By: Sin Mabry on 02-28-2024 Natriuretic peptide B (Bld) [Mass/Vol] BNP ser/plas High 5-100 [facility] Neutrophils Auto (Bld) [#/Vo l]Ordered By: Sin Mabry on 02-28-2024 Neutrophils (Bld) [#/Vol] Neutrophils [#/volume] in Blood by Automated count 1.8-7.7 [facility] Neutrophils [#/volume] in Bl ood by Automated countOrdered By: Sin Mabry on 02-28-2024 Neutrophils (Bld) [#/Vol] 4.6 10*3/uL Normal 1.8-7.7 [facility] Comment on above: Performed By: #### C BC, BNP, BMP, PT, PTT, HEPATIC, CK, HS TROP ####[facility] [id number] [place] [id number] [facility] Neutrophils/100 WBC Auto (Bl d)Ordered By: Sin Mabry on 02-28-2024 Neutrophils/100 WBC (Bld) Automated neutrophil % . [facility] No Panel InformationOrdered By: Sin Mabry on 02-28-2024 Estimated GFR (CKD-EPI) > 60.0 mL/Min [facility] Creatinine Clearance (Chem 95.65 [facility] Nucleated erythrocytes [Pres ence] in Blood by Automated countOrdered By: Sin Mabry on 02-28-2024 Nucleated RBC Auto Ql (Bld) 0.1 /100{WBC} 0-0.5 [facility] Nucleated RBC Auto Ql (Bld) Nucleated erythrocytes [Presence] in Blood by Automated count 0-0.5 [facility] Partial Thromboplastin Timeo n 02-28-2024 aPTT Coag (Bld) [Time] 42.4 s High 25.1-36.5 [facility] Comment on above: Result Comment: A he matocrit value greater than 55% may lead to inaccurate results in coagulation testing. Patients having hematocrit values >55% require a special collection tube for coagulation studies. Please contact the laboratory at [phone] for redraw instructions.PERFORMED BY:[address] [place], [place] [phone] MEDICAL DIRECTORBETHANY ALBRIGHT M.D. Performed By: #### C BC, BNP, BMP, PT, PTT, HEPATIC, CK, HS TROP ####[place] [id number] [facility] Platelet mean volume Auto (B ld) [Entitic vol]Ordered By: Sin Mabry on 02-28-2024 Platelet mean volume (Bld) [Entitic vol] Platelet mean volume [Entitic volume] in Blood by Automated count 6.6-10.1 [facility] Platelet mean volume [Entiti c volume] in Blood by Automated countOrdered By: Sin Mabry on 02-28-2024 Platelet mean volume (Bld) [Entitic vol] 8.4 fL Normal 6.6-10.1 [facility] Comment on above: Performed By: #### C BC, BNP, BMP, PT, PTT, HEPATIC, CK, HS TROP ####[place] [id number] [facility] Platelets Auto (Bld) [#/Vol] Ordered By: Sin Mabry on 02-28-2024 Platelets (Bld) [#/Vol] Platelets [#/vol ume] in Blood by Automated count 150-450 [facility] Platelets [#/volume] in Bloo d by Automated countOrdered By: Sin Mabry on 02-28-2024 Platelets (Bld) [#/Vol] 238 10*3/uL Normal 150-450 [facility] Comment on above: Performed By: #### C BC, BNP, BMP, PT, PTT, HEPATIC, CK, HS TROP ####[facility] [place] [address] [facility] Potassium [Moles/volume] in Serum or PlasmaOrdered By: Sin Mabry on 02-28-2024 Potassium [Moles/Vol] 3.9 mmol/L Normal 3.5-5.1 [facility] Comment on above: Performed By: #### C BC, BNP, BMP, PT, PTT, HEPATIC, CK, HS TROP ####[address] [address] [facility] Protein [Mass/volume] in Ser um or PlasmaOrdered By: Sin Mabry on 02-28-2024 Protein [Mass/Vol] 6.9 g/dL Normal 6.4-8.9 [facility] Comment on above: Performed By: #### C BC, BNP, BMP, PT, PTT, HEPATIC, CK, HS TROP ####[place] [address] [place] [address] [facility] Protein [Mass/Vol] Protein [Mass/volume ] in Serum or Plasma 6.4-8.9 [facility] Prothrombin time (PT)Ordered By: Sin Mabry on 02-28-2024 PT Coag (PPP) [Time] 22.4 s High 9.0-12.9 [facility] Comment on above: A hematocrit value g reater than 55% may lead to inaccurate results in coagulation testing. Patients having hematocrit values >55% require a special collection tube for coagulation studies. Please contact the laboratory at [phone] for redraw instructions. Result Comment: A he matocrit value greater than 55% may lead to inaccurate results in coagulation testing. Patients having hematocrit values >55% require a special collection tube for coagulation studies. Please contact the laboratory at [phone] for redraw instructions. Performed By: #### C BC, BNP, BMP, PT, PTT, HEPATIC, CK, HS TROP ####[place] [address] [place] [address] [facility] PT Coag (PPP) [Time] Prothrombin time (PT) High 9.0- 12.9 [facility] Comment on above: A hematocrit value g reater than 55% may lead to inaccurate results in coagulation testing. Patients having hematocrit values >55% require a special collection tube for coagulation studies. Please contact the laboratory at [phone] for redraw instructions. RBC Auto (Bld) [#/Vol]Ordere d By: Sin Mabry on 02-28-2024 RBC (Bld) [#/Vol] Erythrocytes [#/volu me] in Blood by Automated count 3.90-5.60 [facility] Serum globulin measurement b y calculation (mass/volume)Ordered By: Sin Mabry on 02-28-2024 Globulin (S) [Mass/Vol] 3.2 g/dL Normal [facility] Comment on above: Performed By: #### C BC, BNP, BMP, PT, PTT, HEPATIC, CK, HS TROP ####[facility] [id number] Serum or plasma albumin/glob ulin mass ratioOrdered By: Sin Mabry on 02-28-2024 Albumin/Globulin [Mass ratio] 1.2 {ratio} Normal [facility] Comment on above: Performed By: #### C BC, BNP, BMP, PT, PTT, HEPATIC, CK, HS TROP ####[place] [id number] [address] Albumin/Globulin [Mass ratio] Serum or plasma albumin/globulin mass ratio [facility] Serum or plasma anion gap de terminationOrdered By: Sin Mabry on 02-28-2024 Anion gap [Moles/Vol] 10.8 mmol/L Normal 6.0-15.0 [facility] Comment on above: Performed By: #### C BC, BNP, BMP, PT, PTT, HEPATIC, CK, HS TROP ####[address] Serum or plasma non-glucuron idated bilirubin measurement (mass/volume)Ordered By: Sin Mabry on 02-28-2024 Bilirubin.indirect [Mass/Vol] 0.3 mg/dL [facility] Bilirubin.indirect [Mass/Vol] Serum or plasma non-glucuronidated bilirubin measurement (mass/volume) [facility] Sodium [Moles/volume] in Ser um or PlasmaOrdered By: Sin Mabry on 02-28-2024 Sodium [Moles/Vol] 128 mmol/L Low 136-145 [facility] Comment on above: Performed By: #### C BC, BNP, BMP, PT, PTT, HEPATIC, CK, HS TROP ####[place] [id number] [place] [address] [facility] Troponin I High Sensitivityo n 02-28-2024 Troponin I High Sensitivity 4.9 pg/mL Normal 0.0-20.0 [facility] Comment on above: Result Comment: PERF ORMED BY:[address] [place], [place] [phone] MEDICAL DIRECTORBETHANY ALBRIGHT M.D. Performed By: #### C BC, BNP, BMP, PT, PTT, HEPATIC, CK, HS TROP ####[place] [id number] [facility] Troponin I.cardiac [Mass/vol ume] in Serum or Plasma by Detection limit <= 0.01 ng/Ordered By: Sin Mabry on 02-28-2024 Troponin I.cardiac DL <= 0.01 ng/mL [Mass/Vol] 4.9 pg/mL 0.0-20.0 [facility] Troponin I.cardiac DL <= 0.01 ng/mL [Mass/Vol] Troponin I.cardiac [Mass/volume] in Serum or Plasma by Detection limit <= 0.01 ng/ 0.0-20.0 [facility] Urea nitrogen [Mass/volume] in Serum or PlasmaOrdered By: Sin Mabry on 02-28-2024 Urea nitrogen [Mass/Vol] 11 mg/dL Normal 7-25 [facility] Comment on above: Performed By: #### C BC, BNP, BMP, PT, PTT, HEPATIC, CK, HS TROP ####[place] [id number] [facility] WBC Auto (Bld) [#/Vol]Ordere d By: Sin Mabry on 02-28-2024 WBC (Bld) [#/Vol] Leukocytes [#/volume ] in Blood by Automated count 4.1-10.5 [facility] XR chest 1V portableon 02-27 XR chest 1V portable Normal [facility] aPTT in Platelet poor plasma by Coagulation assayOrdered By: Sin Mabry on 02-28-2024 aPTT Coag (PPP) [Time] Activated partial thromboplastin time (aPTT) in platelet poor plasma by coagulation a High 25.1-36.5 [facility] Comment on above: A hematocrit value g reater than 55% may lead to inaccurate results in coagulation testing. Patients having hematocrit values >55% require a special collection tube for coagulation studies. Please contact the laboratory at [phone] for redraw instructions. Automated basophil %Ordered By: Rubin Billy on 02-04-2024 Basophils/100 WBC (Bld) 0.2 % Normal . [facility] Comment on above: Performed By: #### C BC, BMP ####[place] [id number] Automated basophil countOrde red By: Rubin Billy on 02-04-2024 Basophils (Bld) [#/Vol] 0.0 10*3/uL Normal 0.0-0.2 [facility] Comment on above: Result Comment: PERF ORMED BY:[address] [place], [place] [id number] MEDICAL DIRECTORBETHANY ALBRIGHT M.D. Performed By: #### C MARYAM, BMP ####[place] [id number] [facility] Automated blood monocyte cou ntOrdered By: Rubin Billy on 02-04-2024 Monocytes (Bld) [#/Vol] 1.0 10*3/uL High 0.0-0.8 [facility] Comment on above: Performed By: #### C BC, BMP ####[place] [id number] Automated eosinophil %Ordere d By: Rubin Billy on 02-04-2024 Eosinophils/100 WBC (Bld) 1.2 % Normal . [facility] Comment on above: Performed By: #### C BC, BMP ####[place] [id number] [facility] Automated eosinophil countOr dered By: Rubin Billy on 02-04-2024 Eosinophils (Bld) [#/Vol] 0.1 10*3/uL Normal 0.0-0.45 [facility] Comment on above: Performed By: #### C BC, BMP ####[address] Automated monocyte %Ordered By: Rubin Billy on 02-04-2024 Monocytes/100 WBC (Bld) 12.9 % Normal . [facility] Comment on above: Performed By: #### C BC, BMP ####[place] [id number] [facility] Automated neutrophil %Ordere d By: Rubin Billy on 02-04-2024 Neutrophils/100 WBC (Bld) 72.1 % Normal . [facility] Comment on above: Performed By: #### C BC, BMP ####[place] [id number] [facility] Basic Metabolic Panelon 01-14 Creatinine Clr Calc Pharmacy 86.96 Normal [facility] Comment on above: Result Comment: PERF ORMED BY:[address] [place], [place] [id number] MEDICAL DIRECTORBETHANY ALBRIGHT M.D. Performed By: #### C BC, BMP ####[place] [id number] [facility] GFR/1.73 sq M.predicted MDRD (S/P/Bld) [Vol rate/Area] mL/min/{1.73_m2} Normal [facility] Comment on above: Performed By: #### C BC, BMP ####[place] [id number] [facility] Basophils Auto (Bld) [#/Vol] Ordered By: Rubin Billy on 02-04-2024 Basophils (Bld) [#/Vol] Automated basophil count 0.0-0.2 [facility] Basophils/100 WBC Auto (Bld) Ordered By: Rubin Billy on 02-04-2024 Basophils/100 WBC (Bld) Automated basophil % . [facility] Calcium [Mass/volume] in Ser um or PlasmaOrdered By: Rubin Billy on 02-04-2024 Calcium [Mass/Vol] 8.7 mg/dL Normal 8.6-10.3 [facility] Comment on above: Performed By: #### C MARYAM, BMP ####[place] [id number] [place] [id number] [facility] Calcium [Mass/Vol] Calcium [Mass/volume ] in Serum or Plasma 8.6-10.3 [facility] Carbon dioxide, total [Moles /volume] in Serum or PlasmaOrdered By: Rubin Billy on 02-04-2024 CO2 [Moles/Vol] 29.9 mmol/L Normal 21.0-31.0 [facility] Comment on above: Performed By: #### C MARYAM, BMP ####[place] [id number] [place] [id number] [facility] CO2 [Moles/Vol] Carbon dioxide, tota l [Moles/volume] in Serum or Plasma 21.0-31.0 [facility] Chloride [Moles/volume] in S christine or PlasmaOrdered By: Rubin Billy on 02-04-2024 Chloride [Moles/Vol] 100 mmol/L Normal 98-107 [facility] Comment on above: Performed By: #### C MARYAM, BMP ####[place] [id number] [facility] Chloride [Moles/Vol] Chloride [Moles/vol ume] in Serum or Plasma 98-107 [facility] Complete Blood Count Auto Di ffon 02-04-2024 Mean Corpuscular HGB Conc 33.7 g/dL Normal 32.5-35.6 [facility] Comment on above: Performed By: #### C BC, BMP ####[place] [id number] [place] [id number] [facility] NRBC% 0.1 /100{WBC} Normal 0-0.5 [facility] Comment on above: Performed By: #### C MARYAM, BMP ####[place] [address] [place] [address] [facility] Creatinine [Mass/volume] in Serum or PlasmaOrdered By: Rubin Billy on 02-04-2024 Creatinine [Mass/Vol] 0.88 mg/dL Normal 0.70-1.30 [facility] Comment on above: Performed By: #### C MARYAM, BMP ####[place] [id number] [facility] Creatinine [Mass/Vol] Creatinine [Mass/v olume] in Serum or Plasma 0.70-1.30 [facility] Eosinophils Auto (Bld) [#/Vo l]Ordered By: Rubin Billy on 02-04-2024 Eosinophils (Bld) [#/Vol] Automated eosinophil count 0.0-0.45 [facility] Eosinophils/100 WBC Auto (Bl d)Ordered By: Rubin Billy on 02-04-2024 Eosinophils/100 WBC (Bld) Automated eosinophil % . [facility] Erythrocyte distribution wid th Auto (RBC) [Ratio]Ordered By: Rubin Billy on 02-04-2024 Erythrocyte distribution width (RBC) [Ratio] Erythrocyte distribution width [Ratio] by Automated count 12.0-14.8 [facility] Erythrocyte distribution wid th [Ratio] by Automated countOrdered By: Rubin Billy on 02-04-2024 Erythrocyte distribution width (RBC) [Ratio] 14.1 % Normal 12.0-14.8 [facility] Comment on above: Performed By: #### C BC, BMP ####[place] [address] [place] [address] [facility] Erythrocytes [#/volume] in B lood by Automated countOrdered By: Rubin Billy on 02-04-2024 RBC (Bld) [#/Vol] 3.74 10*6/uL Low 3.90-5.60 [facility] Comment on above: Performed By: #### C BC, BMP ####[place] [id number] [place] Glucose [Mass/volume] in Ser um or PlasmaOrdered By: Rubin Billy on 02-04-2024 Glucose [Mass/Vol] 83 mg/dL Normal 70-100 [facility] Comment on above: ADA recommended refe rence rangeRandom Glucose Reference Range is dependent on time and content of last meal. Glucose of more than 200 mg/dL in a nonstressed, ambulatory subject supports the diagnosis of Diabetes Mellitus. Result Comment: [place] Glucose Reference Range is dependent on time and content of last meal. Glucose of more than 200 mg/dL in a nonstressed, ambulatory subject supports the diagnosis of Diabetes Mellitus. ADA recommended reference range Performed By: #### C MARYAM, BMP ####[place] [id number] [place] [id number] [facility] Glucose [Mass/Vol] Glucose [Mass/volume ] in Serum or Plasma 70-100 [facility] Comment on above: ADA recommended refe rence rangeRandom Glucose Reference Range is dependent on time and content of last meal. Glucose of more than 200 mg/dL in a nonstressed, ambulatory subject supports the diagnosis of Diabetes Mellitus. Hematocrit Auto (Bld) [Volum e fraction]Ordered By: Rubin Billy on 02-04-2024 Hematocrit (Bld) [Volume fraction] Hematocrit [Volume Fraction] of Blood by Automated count Low 38.8-50.0 [facility] Hematocrit [Volume Fraction] of Blood by Automated countOrdered By: Rubin Billy on 02-04-2024 Hematocrit (Bld) [Volume fraction] 34.0 % Low 38.8-50.0 [facility] Comment on above: Performed By: #### C BC, BMP ####[facility] [place] [address] [facility] Hemoglobin [Mass/volume] in BloodOrdered By: Rubin Billy on 02-04-2024 Hemoglobin (Bld) [Mass/Vol] 11.4 g/dL Low 13.0-17.0 [facility] Comment on above: Performed By: #### C BC, BMP ####[place] [id number] [place] [address] [place] Hemoglobin (Bld) [Mass/Vol] Hemoglobin [Mass/volume] in Blood Low 13.0-17.0 [facility] Leukocytes [#/volume] correc junior for nucleated erythrocytes in Blood by Automated counOrdered By: Rubin Billy on 02-04-2024 WBC corrected for nucl RBC Auto (Bld) [#/Vol] 7.7 10*3/uL 4.1-10.5 [facility] WBC corrected for nucl RBC Auto (Bld) [#/Vol] Leukocytes [#/volume] corrected for nucleated erythrocytes in Blood by Automated coun 4.1-10.5 [facility] Leukocytes [#/volume] in Blo od by Automated countOrdered By: Rubin Billy on 02-04-2024 WBC (Bld) [#/Vol] 7.7 10*3/uL Normal 4.1-10.5 [facility] Comment on above: Performed By: #### C BC, BMP ####[facility] [id number] Lymphocytes Auto (Bld) [#/Vo l]Ordered By: Rubin Billy on 02-04-2024 Lymphocytes (Bld) [#/Vol] Lymphocytes [#/volume] in Blood by Automated count 1.00-4.8 [facility] Lymphocytes [#/volume] in Bl ood by Automated countOrdered By: Rubin Billy on 02-04-2024 Lymphocytes (Bld) [#/Vol] 1.1 10*3/uL Normal 1.00-4.8 [facility] Comment on above: Performed By: #### C BC, BMP ####[facility] [id number] [place] [id number] [facility] Lymphocytes/100 WBC Auto (Bl d)Ordered By: Rubin Billy on 02-04-2024 Lymphocytes/100 WBC (Bld) Lymphocytes/100 leukocytes in Blood by Automated count . [facility] Lymphocytes/100 leukocytes i n Blood by Automated countOrdered By: Rubin Billy on 02-04-2024 Lymphocytes/100 WBC (Bld) 13.6 % Normal . [facility] Comment on above: Performed By: #### C BC, BMP ####[facility] [id number] [place] [id number] [facility] MCH Auto (RBC) [Entitic mass ]Ordered By: Rubin Billy on 02-04-2024 MCH (RBC) [Entitic mass] MCH [Entitic mass] by Automated count 27.5-35.2 [facility] MCH [Entitic mass] by Automa junior countOrdered By: Rubin Billy on 02-04-2024 MCH (RBC) [Entitic mass] 30.6 pg Normal 27.5-35.2 [facility] Comment on above: Performed By: #### C , BMP ####[place] [id number] [place] [id number] [facility] MCHC Auto (RBC) [Mass/Vol]Or dered By: Rubin Billy on 02-04-2024 MCHC (RBC) [Mass/Vol] 33.7 g/dL 32.5-35.6 [facility] MCHC (RBC) [Mass/Vol] MCHC [Mass/volume] by Automated count 32.5-35.6 [facility] MCV Auto (RBC) [Entitic vol] Ordered By: Rubin Billy on 02-04-2024 MCV (RBC) [Entitic vol] MCV [Entitic vol ume] by Automated count 83.5-101 [facility] MCV [Entitic volume] by Auto mated countOrdered By: Rubin Billy on 02-04-2024 MCV (RBC) [Entitic vol] 90.8 fL Normal 83.5-101 F [facility] Comment on above: Performed By: #### C MARYAM, BMP ####[place] [id number] [facility] Monocytes Auto (Bld) [#/Vol] Ordered By: Rubin Billy on 02-04-2024 Monocytes (Bld) [#/Vol] Automated blood monocyte count High 0.0-0.8 [facility] Monocytes/100 WBC Auto (Bld) Ordered By: Rubin Billy on 02-04-2024 Monocytes/100 WBC (Bld) Automated monocyte % . [facility] Neutrophils Auto (Bld) [#/Vo l]Ordered By: Rubin Billy on 02-04-2024 Neutrophils (Bld) [#/Vol] Neutrophils [#/volume] in Blood by Automated count 1.8-7.7 [facility] Neutrophils [#/volume] in Bl ood by Automated countOrdered By: Rubin Billy on 02-04-2024 Neutrophils (Bld) [#/Vol] 5.6 10*3/uL Normal 1.8-7.7 [facility] Comment on above: Performed By: #### C MARYAM, BMP ####[facility] [id number] [place] [address] [facility] Neutrophils/100 WBC Auto (Bl d)Ordered By: Rubin Billy on 02-04-2024 Neutrophils/100 WBC (Bld) Automated neutrophil % . [facility] No Panel InformationOrdered By: Rubin Billy on 02-04-2024 Estimated GFR (CKD-EPI) > 60.0 mL/Min [facility] Creatinine Clearance (Chem 86.96 [facility] Nucleated erythrocytes [Pres ence] in Blood by Automated countOrdered By: Rubin Billy on 02-04-2024 Nucleated RBC Auto Ql (Bld) 0.1 /100{WBC} 0-0.5 [facility] Nucleated RBC Auto Ql (Bld) Nucleated erythrocytes [Presence] in Blood by Automated count 0-0.5 [facility] Platelet mean volume Auto (B ld) [Entitic vol]Ordered By: Rubin Billy on 02-04-2024 Platelet mean volume (Bld) [Entitic vol] Platelet mean volume [Entitic volume] in Blood by Automated count 6.6-10.1 [facility] Platelet mean volume [Entiti c volume] in Blood by Automated countOrdered By: Rubin Billy on 02-04-2024 Platelet mean volume (Bld) [Entitic vol] 7.8 fL Normal 6.6-10.1 [facility] Comment on above: Performed By: #### C MARYAM, BMP ####[facility] [id number] [place] [address] [facility] Platelets Auto (Bld) [#/Vol] Ordered By: Rubin Billy on 02-04-2024 Platelets (Bld) [#/Vol] Platelets [#/vol ume] in Blood by Automated count 150-450 [facility] Platelets [#/volume] in Bloo d by Automated countOrdered By: Rubin Billy on 02-04-2024 Platelets (Bld) [#/Vol] 246 10*3/uL Normal 150-450 [facility] Comment on above: Performed By: #### C MARYAM, BMP ####[place] [address] [place] [address] [facility] Potassium [Moles/volume] in Serum or PlasmaOrdered By: Rubin Billy on 02-04-2024 Potassium [Moles/Vol] 4.4 mmol/L Normal 3.5-5.1 [facility] Comment on above: Performed By: #### C MARYAM, BMP ####[address] [address] [facility] Potassium [Moles/Vol] Potassium [Moles/v olume] in Serum or Plasma 3.5-5.1 [facility] RBC Auto (Bld) [#/Vol]Ordere d By: Rubin Billy on 02-04-2024 RBC (Bld) [#/Vol] Erythrocytes [#/volu me] in Blood by Automated count Low 3.90-5.60 [facility] Serum or plasma anion gap de terminationOrdered By: Rubin Billy on 02-04-2024 Anion gap [Moles/Vol] 7.5 mmol/L Normal 6.0-15.0 [facility] Comment on above: Performed By: #### C BC, BMP ####[place] [address] [place] [address] [facility] Anion gap [Moles/Vol] Serum or plasma an ion gap determination 6.0-15.0 [facility] Sodium [Moles/volume] in Ser um or PlasmaOrdered By: Rubin Billy on 02-04-2024 Sodium [Moles/Vol] 133 mmol/L Low 136-145 [facility] Comment on above: Performed By: #### C BC, BMP ####[address] [place] [address] [facility] Sodium [Moles/Vol] Sodium [Moles/volume ] in Serum or Plasma Low 136-145 [facility] Urea nitrogen [Mass/volume] in Serum or PlasmaOrdered By: Rubin Billy on 02-04-2024 Urea nitrogen [Mass/Vol] 22 mg/dL Normal 12-06 [facility] Comment on above: Performed By: #### C BC, BMP ####[address] [address] [facility] Urea nitrogen [Mass/Vol] Urea nitrogen [Mass/volume] in Serum or Plasma 12-06 [facility] WBC Auto (Bld) [#/Vol]Ordere d By: Rubin Billy on 02-04-2024 WBC (Bld) [#/Vol] Leukocytes [#/volume ] in Blood by Automated count 4.1-10.5 [facility] A1C with Estimated Average G luon 02-03-2024 Glucose [Mass/Vol] 108 mg/dL Normal [facility] Comment on above: Result Comment: PERF ORMED BY:[address] [place], [place] [phone] MEDICAL DIRECTORBETHANY ALBRIGHT M.D. Performed By: #### M G, CBC, PT, HEPATIC, LIPID, PTT, A1C [facility] eA, [facility] ####[place] [address] [place] [address] [facility] Activated partial thrombopla stin time (aPTT) in platelet poor plasma by coagulation aOrdered By: Rubin Billy on 02-03-2024 aPTT Coag (PPP) [Time] 30.2 s 25.1-36.5 [facility] Comment on above: A hematocrit value g reater than 55% may lead to inaccurate results in coagulation testing. Patients having hematocrit values >55% require a special collection tube for coagulation studies. Please contact the laboratory at [phone] for redraw instructions. Alanine aminotransferase [En zymatic activity/volume] in Serum or PlasmaOrdered By: Rubin Billy on 02-03-2024 ALT [Catalytic activity/Vol] 7 U/L Normal [facility] Comment on above: Performed By: #### M G, CBC, PT, HEPATIC, LIPID, PTT, A1C [facility], BMP ####[facility] [id number] [place] [id number] [facility] ALT [Catalytic activity/Vol] Alanine aminotransferase [Enzymatic activity/volume] in Serum or Plasma [facility] Albumin [Mass/volume] in Ser um or Plasma by Bromocresol green (BCG) dye binding methoOrdered By: Rubin Billy on 02-03-2024 Albumin BCG dye [Mass/Vol] 3.6 g/dL 3.5-5.7 [facility] Albumin BCG dye [Mass/Vol] Albumin [Mass/volume] in Serum or Plasma by Bromocresol green (BCG) dye binding metho 3.5-5.7 [facility] Alkaline phosphatase [Enzyma tic activity/volume] in Serum or PlasmaOrdered By: Rubin Billy on 02-03-2024 ALP [Catalytic activity/Vol] 62 U/L Normal [facility] Comment on above: Performed By: #### M G, CBC, PT, HEPATIC, LIPID, PTT, A1C [facility] Reba, BMP ####[facility] [id number] [place] [id number] [facility] ALP [Catalytic activity/Vol] Alkaline phosphatase [Enzymatic activity/volume] in Serum or Plasma [facility] Aspartate aminotransferase [ Enzymatic activity/volume] in Serum or PlasmaOrdered By: Rubin Billy on 02-03-2024 AST [Catalytic activity/Vol] 10 U/L Low [facility] Comment on above: Performed By: #### M G, CBC, PT, HEPATIC, LIPID, PTT, A1C [facility] eA, BMP ####[facility] [id number] [place] [id number] [facility] AST [Catalytic activity/Vol] Aspartate aminotransferase [Enzymatic activity/volume] in Serum or Plasma Low [facility] BNP ser/plasOrdered By: Mook Reed on 02-03-2024 Natriuretic peptide B (Bld) [Mass/Vol] 239.0 pg/mL High 5-100 [facility] Comment on above: Result Comment: PERF ORMED BY:[address] [place], [place] [id number] MEDICAL DIRECTORBETHANY ALBRIGHT M.D. Performed By: #### H S TROP, BNP ####[address] [address] [facility] Basic Metabolic Panelon -2 Anion gap [Moles/Vol] 9.3 mmol/L Normal 6.0-15.0 [facility] Comment on above: Performed By: #### M G, CBC, PT, HEPATIC, LIPID, PTT, A1C [facility] eA, BMP ####[place] [id number] [facility] Calcium [Mass/Vol] 9.0 mg/dL Normal 8.6-10.3 [facility] Comment on above: Performed By: #### M G, CBC, PT, HEPATIC, LIPID, PTT, A1C [facility] e[facility], BMP ####[place] [id number] [facility] Chloride [Moles/Vol] 99 mmol/L Normal 98-107 [facility] Comment on above: Performed By: #### M G, CBC, PT, HEPATIC, LIPID, PTT, A1C [facility] e[facility], BMP ####[address] [address] [facility] CO2 [Moles/Vol] 29.2 mmol/L Normal 21.0-31.0 [facility] Comment on above: Performed By: #### M G, CBC, PT, HEPATIC, LIPID, PTT, A1C [facility] e[facility], BMP ####[address] [address] [facility] Creatinine [Mass/Vol] 0.98 mg/dL Normal 0.70-1.30 [facility] Comment on above: Performed By: #### M G, CBC, PT, HEPATIC, LIPID, PTT, A1C [facility] eA, BMP ####[address] [address] [facility] Creatinine Clr Calc Pharmacy 77.28 Normal [facility] Comment on above: Performed By: #### M G, CBC, PT, HEPATIC, LIPID, PTT, A1C [facility] eA, BMP ####[address] [address] [facility] GFR/1.73 sq M.predicted MDRD (S/P/Bld) [Vol rate/Area] mL/min/{1.73_m2} Normal [facility] Comment on above: Performed By: #### M G, CBC, PT, HEPATIC, LIPID, PTT, A1C [facility] eA, BMP ####[address] [address] [facility] Glucose [Mass/Vol] 123 mg/dL High 70-100 [facility] Comment on above: Result Comment: [facility] Glucose Reference Range is dependent on time and content of last meal. Glucose of more than 200 mg/dL in a nonstressed, ambulatory subject supports the diagnosis of Diabetes Mellitus. ADA recommended reference range Performed By: #### M G, CBC, PT, HEPATIC, LIPID, PTT, A1C [facility] eA, BMP ####[place] [id number] [facility] Potassium [Moles/Vol] 4.5 mmol/L Normal 3.5-5.1 [facility] Comment on above: Performed By: #### M G, CBC, PT, HEPATIC, LIPID, PTT, A1C [facility] eA, BMP ####[place] [address] [place] [address] [facility] Sodium [Moles/Vol] 133 mmol/L Low 136-145 [facility] Comment on above: Performed By: #### M G, CBC, PT, HEPATIC, LIPID, PTT, A1C [facility] eA, BMP ####[address] [address] [facility] Urea nitrogen [Mass/Vol] 27 mg/dL High 7-25 [facility] Comment on above: Performed By: #### M G, CBC, PT, HEPATIC, LIPID, PTT, A1C [facility] eA, BMP ####[address] [address] [facility] Bilirubin.direct [Mass/volum e] in Serum or PlasmaOrdered By: Rubin Billy on 02-03-2024 Bilirubin.direct [Mass/Vol] 0.10 mg/dL 0.03-0.18 [facility] Bilirubin.direct [Mass/Vol] Bilirubin.direct [Mass/volume] in Serum or Plasma 0.03-0.18 [facility] Bilirubin.total [Mass/volume ] in Serum or PlasmaOrdered By: Rubin Billy on 02-03-2024 Bilirubin [Mass/Vol] 0.6 mg/dL Normal 0.3-1.0 [facility] Comment on above: Performed By: #### M G, CBC, PT, HEPATIC, LIPID, PTT, A1C WT eA, BMP ####[facility] [id number] [place] [address] [facility] Bilirubin [Mass/Vol] Bilirubin.total [Mass/volume] in Serum or Plasma 0.3-1.0 [facility] Blood estimated average gluc ose determination by estimation from glycated hemoglobinOrdered By: Rubin Billy on 02-03-2024 Average glucose Estimated from glycated hemoglobin (Bld) [Mass/Vol] Glucose mean value [Mass/volume] in Blood Estimated from glycated hemoglobin [facility] Cholesterol [Mass/volume] in Serum or PlasmaOrdered By: Rubin Billy on 02-03-2024 Cholesterol [Mass/Vol] 144 mg/dL Normal 140-200 [facility] Comment on above: Chol less than 200 m g/dl low riskChol 201-239 mg/dl borderline riskChol 240 mg/dl and greater high risk Result Comment: Chol less than 200 mg/dl low risk Chol 201-239 mg/dl borderline risk Chol 240 mg/dl and greater high risk Performed By: #### M G, CBC, PT, HEPATIC, LIPID, PTT, A1C WT eA, BMP ####[facility] [id number] [place] [address] [facility] Cholesterol [Mass/Vol] Cholesterol [Mass /volume] in Serum or Plasma 140-200 [facility] Comment on above: Chol less than 200 m g/dl low riskChol 201-239 mg/dl borderline riskChol 240 mg/dl and greater high risk Cholesterol in HDL [Mass/vol ume] in Serum or PlasmaOrdered By: Rubin Billy on 02-03-2024 Cholesterol in HDL [Mass/Vol] Serum or plasma high density lipoprotein (HDL) cholesterol measurement 23- [facility] Comment on above: HDL CHOL ATP-III CLA SSIFICATION Cardiovascular RiskHDL > or equal to 60 mg/dL LOWHDL < 40 mg/dL HIGH Cholesterol in LDL Calc [Mas s/Vol]Ordered By: Rubin Billy on 02-03-2024 Cholesterol in LDL [Mass/Vol] 64 mg/dL 0-100 [facility] Comment on above: LDL ATP III CLASSIFI CATIONLDL less than 100 mg/dL OptimalLDL 100-129 mg/dL Near or above optimalLDL 130-159 mg/dL Borderline highLDL 160-189 mg/dL HighLDL greater than 189 mg/dL Very high Cholesterol in LDL [Mass/Vol] Cholesterol in LDL [Mass/volume] in Serum or Plasma by calculation 0 [facility] Comment on above: LDL ATP III CLASSIFI CATIONLDL less than 100 mg/dL OptimalLDL 100-129 mg/dL Near or above optimalLDL 130-159 mg/dL Borderline highLDL 160-189 mg/dL HighLDL greater than 189 mg/dL Very high Cholesterol in VLDL Calc [Ma ss/Vol]Ordered By: Rubin Billy on 02-03-2024 Cholesterol in VLDL [Mass/Vol] 7 mg/dL [facility] Cholesterol in VLDL [Mass/Vol] Cholesterol in VLDL [Mass/volume] in Serum or Plasma by calculation [facility] Complete Blood Count Auto Di ffon 02-03-2024 Basophils (Bld) [#/Vol] 0.0 10*3/uL Normal 0.0-0.2 [facility] Comment on above: Result Comment: PERF ORMED BY:[facility] [place], [place] [id number] MEDICAL DIRECTORBETHANY ALBRIGHT M.D. Performed By: #### M G, CBC, PT, HEPATIC, LIPID, PTT, A1C WT eA, BMP ####[facility] [place] [address] [facility] Basophils/100 WBC (Bld) 0.1 % Normal . [facility] Comment on above: Performed By: #### M G, CBC, PT, HEPATIC, LIPID, PTT, A1C [facility] eA, BMP ####[address] Eosinophils (Bld) [#/Vol] 0.0 10*3/uL Normal 0.0-0.45 [facility] Comment on above: Performed By: #### M G, CBC, PT, HEPATIC, LIPID, PTT, A1C [facility] eA, BMP ####[address] Eosinophils/100 WBC (Bld) 0.0 % Normal . [facility] Comment on above: Performed By: #### M G, CBC, PT, HEPATIC, LIPID, PTT, A1C [facility] eA, BMP ####[address] Erythrocyte distribution width (RBC) [Ratio] 13.9 % Normal 12.0-14.8 [facility] Comment on above: Performed By: #### M G, CBC, PT, HEPATIC, LIPID, PTT, A1C [facility] eA, BMP ####[address] Hematocrit (Bld) [Volume fraction] 34.1 % Low 38.8-50.0 [facility] Comment on above: Performed By: #### M G, CBC, PT, HEPATIC, LIPID, PTT, A1C [facility] eA, BMP ####[address] Hemoglobin (Bld) [Mass/Vol] 11.4 g/dL Low 13.0-17.0 [facility] Comment on above: Performed By: #### M G, CBC, PT, HEPATIC, LIPID, PTT, A1C [facility] eA, BMP ####[address] Lymphocytes (Bld) [#/Vol] 0.5 10*3/uL Low 1.00-4.8 [facility] Comment on above: Performed By: #### M G, CBC, PT, HEPATIC, LIPID, PTT, A1C [facility] e[facility], BMP ####[address] Lymphocytes/100 WBC (Bld) 5.3 % Normal . [facility] Comment on above: Performed By: #### M G, CBC, PT, HEPATIC, LIPID, PTT, A1C WTH eA, BMP ####[address] MCH (RBC) [Entitic mass] 30.6 pg Normal 27.5-35.2 [facility] Comment on above: Performed By: #### M G, CBC, PT, HEPATIC, LIPID, PTT, A1C WTH eA, BMP ####[address] MCV (RBC) [Entitic vol] 92.1 fL Normal 83.5-101 [facility] Comment on above: Performed By: #### M G, CBC, PT, HEPATIC, LIPID, PTT, A1C WTH eA, BMP ####[address] Mean Corpuscular HGB Conc 33.3 g/dL Normal 32.5-35.6 [facility] Comment on above: Performed By: #### M G, CBC, PT, HEPATIC, LIPID, PTT, A1C WTH eA, BMP ####[address] Monocytes (Bld) [#/Vol] 0.9 10*3/uL High 0.0-0.8 [facility] Comment on above: Performed By: #### M G, CBC, PT, HEPATIC, LIPID, PTT, A1C WTH eA, BMP ####[address] Monocytes/100 WBC (Bld) 9.4 % Normal . [facility] Comment on above: Performed By: #### M G, CBC, PT, HEPATIC, LIPID, PTT, A1C WTH eA, BMP ####[address] Neutrophils (Bld) [#/Vol] 8.6 10*3/uL High 1.8-7.7 [facility] Comment on above: Performed By: #### M G, CBC, PT, HEPATIC, LIPID, PTT, A1C WTH eA, BMP ####[address] Neutrophils/100 WBC (Bld) 85.2 % Normal . [facility] Comment on above: Performed By: #### M G, CBC, PT, HEPATIC, LIPID, PTT, A1C WTH eA, BMP ####[address] NRBC% 0.0 /100{WBC} Normal 0-0.5 [facility] Comment on above: Performed By: #### M G, CBC, PT, HEPATIC, LIPID, PTT, A1C WTH eA, BMP ####[address] Platelet mean volume (Bld) [Entitic vol] 7.9 fL Normal 6.6-10.1 [facility] Comment on above: Performed By: #### M G, CBC, PT, HEPATIC, LIPID, PTT, A1C WTH eA, BMP ####[address] Platelets (Bld) [#/Vol] 259 10*3/uL Normal 150-450 [facility] Comment on above: Performed By: #### M G, CBC, PT, HEPATIC, LIPID, PTT, A1C WTH eA, BMP ####[address] RBC (Bld) [#/Vol] 3.71 10*6/uL Low 3.90-5.60 [facility] Comment on above: Performed By: #### M G, CBC, PT, HEPATIC, LIPID, PTT, A1C WTH eA, BMP ####[address] WBC (Bld) [#/Vol] 10.1 10*3/uL Normal 4.1-10.5 [facility] Comment on above: Performed By: #### M G, CBC, PT, HEPATIC, LIPID, PTT, A1C WTH eA, BMP ####[facility] [id number] [place] [address] [facility] ECG 12 lead ECGon 02-03-2024 ECG 12 lead ECG Normal [facility] ECH echo transthoracicon ECH echo transthoracic Normal [facility] Globulin Calc (S) [Mass/Vol] Ordered By: Rubin Billy on 02-03-2024 Globulin (S) [Mass/Vol] Serum globulin m easurement by calculation (mass/volume) [facility] Glucose mean value [Mass/vol ume] in Blood Estimated from glycated hemoglobinOrdered By: Rubin Billy on 02-03-2024 Average glucose Estimated from glycated hemoglobin (Bld) [Mass/Vol] 108 mg/dL [facility] Hemoglobin A1c percentageOrd ered By: Rubin Billy on 02-03-2024 HbA1c (Bld) [Mass fraction] 5.4 % Normal 4.3-5.6 [facility] Comment on above: Increased risk for d iabetes: 5.7 - 6.4diabetes: >6.4glycemic control for adults with diabetes: <7.0 Result Comment: Incr eased risk for diabetes: 5.7 - 6.4 diabetes: >6.4 glycemic control for adults with diabetes: <7.0 Performed By: #### M G, CBC, PT, HEPATIC, LIPID, PTT, A1C WT Reba, BMP ####[address] [place] [address] [facility] Hemoglobin A1c/Hemoglobin.to jeanne in BloodOrdered By: Rubin Billy on 02-03-2024 HbA1c (Bld) [Mass fraction] Hemoglobin A1c percentage 4.3-5.6 [facility] Comment on above: Increased risk for d iabetes: 5.7 - 6.4diabetes: >6.4glycemic control for adults with diabetes: <7.0 Hepatic Panelon 02-03-2024 Albumin [Mass/Vol] 3.6 g/dL Normal 3.5-5.7 [facility] Comment on above: Performed By: #### M G, CBC, PT, HEPATIC, LIPID, PTT, A1C WT eA, BMP ####[facility] [place] [address] [facility] Bilirubin,Indirect 0.5 mg/dL Normal [facility] Comment on above: Performed By: #### M G, CBC, PT, HEPATIC, LIPID, PTT, A1C WTH eA, BMP ####[id number] [facility] Bilirubin.indirect [Mass/Vol] 0.10 mg/dL Normal 0.03-0.18 [facility] Comment on above: Performed By: #### M G, CBC, PT, HEPATIC, LIPID, PTT, A1C WTH eA, BMP ####[facility] [place] [address] [facility] INR in Platelet poor plasma by Coagulation assayOrdered By: Rubin Billy on 02-03-2024 INR Coag (PPP) [Relative time] 1.0 {INR} Normal [facility] Comment on above: INR Therapeutic Rang [...] HEPATIC, LIPID, PTT, A1C WT eA, BMP ####[id number] [facility] INR Coag (PPP) [Relative time] INR in Platelet poor plasma by Coagulation assay [facility] Comment on above: INR Therapeutic Rang [...] LDL Cholesterol,Calculated 64 mg/dL Normal 0-100 [facility] Comment on above: Result Comment: LDL ATP III CLASSIFICATION LDL less than 100 mg/dL Optimal LDL 100-129 mg/dL Near or above optimal LDL 130-159 mg/dL Borderline high LDL 160-189 mg/dL High LDL greater than 189 mg/dL Very high Performed By: #### M G, CBC, PT, HEPATIC, LIPID, PTT, A1C WTH eA, BMP ####[address] [place] [address] [facility] Triglyceride w/Reflex 37 mg/dL Normal 0-149 [facility] Comment on above: Result Comment: TRIG ATP III CLASSIFICATION TRIG less than 150 mg/dL Normal TRIG 150-199 mg/dL Borderline high TRIG 200-500 mg/dL High TRIG greater than 500 mg/dL Very high Standard traceable to the Center for Disease Conrtrol and Prevention (CDC) test method. Performed By: #### M G, CBC, PT, HEPATIC, LIPID, PTT, A1C WTH eA, BMP ####[id number] [place] [id number] [facility] VLDL CHOLESTEROL 7 mg/dL Normal [facility] Comment on above: Performed By: #### M G, CBC, PT, HEPATIC, LIPID, PTT, A1C WTH eA, BMP ####[address] [place] [address] [facility] Magnesium [Mass/volume] in S christine or PlasmaOrdered By: Rubin Billy on 02-03-2024 Magnesium [Mass/Vol] 1.9 mg/dL Normal 1.9-2.7 [facility] Comment on above: Performed By: #### M G, CBC, PT, HEPATIC, LIPID, PTT, A1C WTH eA, BMP ####[facility] [place] [address] [facility] Magnesium [Mass/Vol] Magnesium [Mass/vol ume] in Serum or Plasma 1.9-2.7 [facility] Natriuretic peptide B [Mass/ Vol]Ordered By: Silvano Reed on 02-03-2024 Natriuretic peptide B (Bld) [Mass/Vol] BNP ser/plas High 5-100 [facility] Partial Thromboplastin Timeo n 02-03-2024 aPTT Coag (Bld) [Time] 30.2 s Normal 25.1-36.5 [facility] Comment on above: Result Comment: A he matocrit value greater than 55% may lead to inaccurate results in coagulation testing. Patients having hematocrit values >55% require a special collection tube for coagulation studies. Please contact the laboratory at [phone] for redraw instructions.PERFORMED BY:[address], [place] [phone] MEDICAL DIRECTORBETHANY ALBRIGHT M.D. Performed By: #### M G, CBC, PT, HEPATIC, LIPID, PTT, A1C [facility] eA, BMP ####[address] [address] [place] Protein [Mass/volume] in Ser um or PlasmaOrdered By: Rubin Billy on 02-03-2024 Protein [Mass/Vol] 6.2 g/dL Low 6.4-8.9 [facility] Comment on above: Performed By: #### M G, CBC, PT, HEPATIC, LIPID, PTT, A1C WT eA, BMP ####[address] [address] [place] Protein [Mass/Vol] Protein [Mass/volume ] in Serum or Plasma Low 6.4-8.9 [facility] Prothrombin time (PT)Ordered By: Rubin Billy on 02-03-2024 PT Coag (PPP) [Time] 11.7 s Normal 9.0-12.9 [facility] Comment on above: A hematocrit value g reater than 55% may lead to inaccurate results in coagulation testing. Patients having hematocrit values >55% require a special collection tube for coagulation studies. Please contact the laboratory at [phone] for redraw instructions. Result Comment: A he matocrit value greater than 55% may lead to inaccurate results in coagulation testing. Patients having hematocrit values >55% require a special collection tube for coagulation studies. Please contact the laboratory at [phone] for redraw instructions. Performed By: #### M G, CBC, PT, HEPATIC, LIPID, PTT, A1C [facility] IVANA Britton ####[facility] [place] [address] [facility] PT Coag (PPP) [Time] Prothrombin time (PT) 9.0- 12.9 [facility] Comment on above: A hematocrit value g reater than 55% may lead to inaccurate results in coagulation testing. Patients having hematocrit values >55% require a special collection tube for coagulation studies. Please contact the laboratory at [phone] for redraw instructions. Serum globulin measurement b y calculation (mass/volume)Ordered By: Rubin Billy on 02-03-2024 Globulin (S) [Mass/Vol] 2.6 g/dL Normal [facility] Comment on above: Performed By: #### M G, CBC, PT, HEPATIC, LIPID, PTT, A1C [facility] IVANA Britton ####[facility] [place] [id number] [facility] Serum or plasma albumin/glob ulin mass ratioOrdered By: Rubin Billy on 02-03-2024 Albumin/Globulin [Mass ratio] 1.4 {ratio} Normal [facility] Comment on above: Performed By: #### M G, CBC, PT, HEPATIC, LIPID, PTT, A1C [facility] Reba, IVANA ####[id number] [place] [id number] [facility] Albumin/Globulin [Mass ratio] Serum or plasma albumin/globulin mass ratio [facility] Serum or plasma high density lipoprotein (HDL) cholesterol measurementOrdered By: Rubin Billy on 02-03-2024 Cholesterol in HDL [Mass/Vol] 73 mg/dL Normal 23-92 [facility] Comment on above: HDL CHOL ATP-III CLA SSIFICATION Cardiovascular RiskHDL > or equal to 60 mg/dL LOWHDL < 40 mg/dL HIGH Result Comment: HDL CHOL ATP-III CLASSIFICATION Cardiovascular Risk HDL > or equal to 60 mg/dL LOW HDL < 40 mg/dL HIGH Performed By: #### M G, CBC, PT, HEPATIC, LIPID, PTT, A1C [facility] eA, BMP ####[facility] [place] [address] [facility] Serum or plasma non-glucuron idated bilirubin measurement (mass/volume)Ordered By: Rubin Billy on 02-03-2024 Bilirubin.indirect [Mass/Vol] 0.5 mg/dL [facility] Bilirubin.indirect [Mass/Vol] Serum or plasma non-glucuronidated bilirubin measurement (mass/volume) [facility] Serum or plasma total choles terol/high density lipoprotein (HDL) cholesterol mass ratOrdered By: Rubin Billy on 02-03-2024 Cholesterol.total/Madison sterol in HDL [Mass ratio] 2.0 {ratio} Normal <5.0 [facility] Comment on above: Result Comment: PERF ORMED BY:[address] [place], [place] [phone] MEDICAL DIRECTORBETHANY ALBRIGHT M.D. Performed By: #### M G, CBC, PT, HEPATIC, LIPID, PTT, A1C [facility] ####[facility] [place] [address] [facility] Cholesterol.total/Madison sterol in HDL [Mass ratio] Serum or plasma total cholesterol/high density lipoprotein (HDL) cholesterol mass rat <5.0 [facility] Triglyceride [Mass/volume] i n Serum or PlasmaOrdered By: Rubin Billy on 02-03-2024 Triglyceride [Mass/Vol] 37 mg/dL 0-149 [facility] Comment on above: TRIG ATP III CLASSIF ICATIONTRIG less than 150 mg/dL NormalTRIG 150-199 mg/dL Borderline highTRIG 200-500 mg/dL High TRIG greater than 500 mg/dL Very highStandard traceable to the Center for Disease Conrtrol and Prevention (CDC) test method. Triglyceride [Mass/Vol] Triglyceride [Ma ss/volume] in Serum or Plasma 0-149 [facility] Comment on above: TRIG ATP III CLASSIF ICATIONTRIG less than 150 mg/dL NormalTRIG 150-199 mg/dL Borderline highTRIG 200-500 mg/dL High TRIG greater than 500 mg/dL Very highStandard traceable to the Center for Disease Conrtrol and Prevention (CDC) test method. Troponin I High Sensitivityo n 02-03-2024 Troponin I High Sensitivity 5.3 pg/mL Normal 0.0-20.0 [facility] Comment on above: Result Comment: PERF ORMED BY:[facility] [place], [place] [phone] MEDICAL DIRECTORBETHANY ALBRIGHT M.D. Performed By: #### H S TROP, BNP ####[facility] [place] [address] [facility] Troponin I.cardiac [Mass/vol ume] in Serum or Plasma by Detection limit <= 0.01 ng/Ordered By: Silvano Reed on 02-03-2024 Troponin I.cardiac DL <= 0.01 ng/mL [Mass/Vol] 5.3 pg/mL 0.0-20.0 [facility] Troponin I.cardiac DL <= 0.01 ng/mL [Mass/Vol] Troponin I.cardiac [Mass/volume] in Serum or Plasma by Detection limit <= 0.01 ng/ 0.0-20.0 [facility] aPTT in Platelet poor plasma by Coagulation assayOrdered By: Rubin Billy on 02-03-2024 aPTT Coag (PPP) [Time] Activated partial thromboplastin time (aPTT) in platelet poor plasma by coagulation a 25.1-36.5 [facility] Comment on above: A hematocrit value g reater than 55% may lead to inaccurate results in coagulation testing. Patients having hematocrit values >55% require a special collection tube for coagulation studies. Please contact the laboratory at [phone] for redraw instructions. ECG 12 lead ECGon 02-02-2024 ECG 12 lead ECG Normal [facility] Basophils/100 WBC Manual cnt (Bld)on 02-01-2024 Basophils/100 WBC (Bld) 1.0 % 0.2-2.0 F [facility] Basophils/100 WBC (Bld) Basophils/100 le ukocytes in Blood by Manual count 0.2-2.0 [facility] Eosinophils/100 WBC Manual c nt (Bld)on 09-19-2024 Eosinophils/100 WBC (Bld) 0.0 % Low 0.9-7.0 [facility] Eosinophils/100 WBC (Bld) Eosinophils/100 leukocytes in Blood by Manual count Low 0.9-7.0 [facility] Erythrocyte distribution wid th Auto (RBC) [Ratio]on 02-01-2024 Erythrocyte distribution width (RBC) [Ratio] 13.6 % 11.0-15.0 [facility] Erythrocyte distribution width (RBC) [Ratio] Erythrocyte distribution width [Ratio] by Automated count 11.0-15.0 [facility] Estimated glomerular filtrat ion rate (GFR) non- Americanon 02-01-2024 GFR/1.73 sq M.predicted among non-blacks MDRD (S/P/Bld) [Vol rate/Area] mL/min/{1.73_m2} >=60 [facility] GFR/1.73 sq M.predicted among non-blacks MDRD (S/P/Bld) [Vol rate/Area] Estimated glomerular filtration rate (GFR) non- >=60 [facility] Hematocrit Auto (Bld) [Volum e fraction]on 02-01-2024 Hematocrit (Bld) [Volume fraction] 36.0 % Low 42.0-54.0 [facility] Hematocrit (Bld) [Volume fraction] Hematocrit [Volume Fraction] of Blood by Automated count Low 42.0-54.0 [facility] Hemoglobin [Mass/volume] in Bloodon 02-01-2024 Hemoglobin (Bld) [Mass/Vol] 12.1 g/dL Low 14.0-18.0 [facility] Hemoglobin (Bld) [Mass/Vol] Hemoglobin [Mass/volume] in Blood Low 14.0-18.0 [facility] Laboratory - Chemistry and C hemistry - challengeon 02-01-2024 Calcium [Mass/Vol] 9.0 mg/dL 8.5-10.1 [facility] Chloride [Moles/Vol] 96 mmol/L Low 98-107 [facility] CO2 [Moles/Vol] 28.2 mmol/L 21.0-32.0 [facility] Creatinine [Mass/Vol] 0.77 mg/dL 0.70-1.30 [facility] GFR/1.73 sq M.predicted MDRD (S/P/Bld) [Vol rate/Area] mL/min/{1.73_m2} >=60 [facility] Glucose [Mass/Vol] 121 mg/dL High 74-106 [facility] Magnesium [Mass/Vol] 1.8 mg/dL 1.8-2.4 [facility] Natriuretic peptide B (Bld) [Mass/Vol] 2166.0 pg/mL Critically high <=900.0 [facility] Comment on above: RESULTS CALLED TO PERCY LEYVA RN at 210 Potassium [Moles/Vol] 4.2 mmol/L 3.5-5.1 [facility] Sodium [Moles/Vol] 130 mmol/L Low 136-145 [facility] Urea nitrogen [Mass/Vol] 15.0 mg/dL 7.0-18.0 [facility] Urea nitrogen/Creatinine [Mass ratio] 19.5 mg/mg [facility] Laboratory - Hematology and Cell countson 02-01-2024 Lymphocytes/100 WBC (Bld) 12.0 % Low 20.5-60.0 [facility] Monocytes/100 WBC (Bld) 5.0 % 1.7-12.0 [facility] Leukocytes [#/volume] correc junior for nucleated erythrocytes in Blood by Automated counon 02-01-2024 WBC corrected for nucl RBC Auto (Bld) [#/Vol] 8.6 10 3/uL 4.0-11.0 [facility] WBC corrected for nucl RBC Auto (Bld) [#/Vol] Leukocytes [#/volume] corrected for nucleated erythrocytes in Blood by Automated coun 4.0-11.0 [facility] MCH Auto (RBC) [Entitic mass ]on 02-01-2024 MCH (RBC) [Entitic mass] 30.3 pg 25.9-34.0 [facility] MCH (RBC) [Entitic mass] MCH [Entitic mass] by Automated count 25.9-34.0 [facility] MCHC Auto (RBC) [Mass/Vol]on 02-01-2024 MCHC (RBC) [Mass/Vol] 33.6 g/dL 29.9-35.2 [facility] MCHC (RBC) [Mass/Vol] MCHC [Mass/volume] by Automated count 29.9-35.2 [facility] MCV Auto (RBC) [Entitic vol] on 02-01-2024 MCV (RBC) [Entitic vol] 90.2 fL 80.0-94.0 [facility] MCV (RBC) [Entitic vol] MCV [Entitic vol ume] by Automated count 80.0-94.0 [facility] No Panel Informationon 01-31 Absolute Basophils (Manual) 0.08 10 3/uL 0.00-0.10 [facility] Eosinophils # (Manual) 0.00 10 3/uL 0.00-0.70 [facility] Lymphocytes # (Manual) 1.03 10 3/uL Low 1.20-3.80 [facility] Monocytes # (Manual) 0.43 10 3/uL 0.30-0.80 Fi [facility] Segmented Neutrophils # (Manual) 7.05 10 3/uL High 1.4-6.5 [facility] Troponin I High Sensitivity 7.0 pg/mL 4.0-76.1 [facility] Comment on above: CUT-OFF POINTS HAVE [...] volume (Bld) [Entitic vol] 9.9 fL 9.5-13.5 [facility] Platelet mean volume (Bld) [Entitic vol] Platelet mean volume [Entitic volume] in Blood by Automated count 9.5-13.5 [facility] Platelets Auto (Bld) [#/Vol] on 02-01-2024 Platelets (Bld) [#/Vol] 249 10 3/uL 150-450 [facility] Platelets (Bld) [#/Vol] Platelets [#/vol ume] in Blood by Automated count 150-450 [facility] RBC Auto (Bld) [#/Vol]on RBC (Bld) [#/Vol] 3.99 10 6/uL Low 4.70-6.10 [facility] RBC (Bld) [#/Vol] Erythrocytes [#/volu me] in Blood by Automated count Low 4.70-6.10 [facility] Segmented neutrophils/100 WB C Manual cnt (Bld)on 02-01-2024 Segmented neutrophils/100 WBC (Bld) 82.0 % High 43.0-75.0 [facility] Segmented neutrophils/100 WBC (Bld) Manual blood segmented neutrophils/100 leukocytes High 43.0-75.0 [facility] Serum or plasma anion gap de terminationon 02-01-2024 Anion gap [Moles/Vol] 10.0 mmol/L [facility] Anion gap [Moles/Vol] Serum or plasma an ion gap determination [facility] Ambulatory Visit Summaryon 0 08-14-2023 Ambulatory Visit Summary PEMAMARY :1955 Visit Date:08/14/2023 Ambulatory Visit Instructions Your [...] Clinton NORMAN MD Where: [facility] [place] Zamudio [facility] Patient Educationon 08-14-19 Patient Education Urology Benign Prostatic Hyperplasia Benign [...] Follow these instructions at home: ? Take frui-obb-taamhuy and prescription medicines only as told by [...] the medicine (more content not included)... Normal [facility] Urology Office/Clinic Noteon 08-14-2023 Urology Office/Clinic Note [...] [facility] [address], [place] [address] [id number] Additional Instructions: 6 mos w/ PSA Patient [...] virus v (more content not included)... Normal [facility] Comment on above: Result Comment: Elec tronically Signed By: Clinton NORMAN MD\.br\Date and Time Signed: 08/14/23 16:12 EDT\.br\Electronically Co-Signed By: Rhonda Temple.br\Date and Time Co-Signed: 08/14/23 16:10 EDT OSMOLALITYon 09-06-2022 Osmolality [Osmolality] 275 mosm/kg Critically low 280-301 [facility] Comment on above: Performed By: #### U YADIRA, BMP, TSH #### [facility] [address] [address] [address] Fabrizio Pascual OSMOLALITY URINEon 3 Osmolality, Urine 422 mOsmol/kg Normal [facility] Comment on above: Result Comment: 24 h r : 300 - 900 Random: 50 - 1400 After 12hr fluid restriction: >850 Performed By: #### U YADIRA, BMP, TSH #### [facility] [address] [address] [address] Fabrizio Pascual CBC W MANUAL DIFFon 09-03-19 23 ATYPICAL LYMPH # Normal [facility] Comment on above: Performed By: #### B KITCHEN LEAD, BMP, HSTROPN #### [facility] [address] [place] [address] Dr. Fabrizio Pascual ATYPICAL LYMPH % Normal [facility] Comment on above: Performed By: #### B KITCHEN LEAD, BMP, HSTROPN #### [facility] [address] [place] [address] Dr. Fabrizio Pascual BAND # 0.1 103/ul Normal 0.0-0.3 [facility] Comment on above: Performed By: #### B KITCHEN LEAD, BMP, HSTROPN #### [facility] [address] [place] [address] Dr. Fabrizio Pascual BAND % 1 % Normal 0-5 [facility] Comment on above: Performed By: #### B KITCHEN LEAD, BMP, HSTROPN #### [facility] [address] [place] [address] Dr. Fabrizio Pascual BASOM # 0.00 103/ul Normal 0.00-0.10 [facility] Comment on above: Performed By: #### B KITCHEN LEAD, BMP, HSTROPN #### [facility] [address] [place] [address] Dr. Fabrizio Pascual BASOM % 0.0 % Critically low 0.2-2.0 [facility] Comment on above: Performed By: #### B KITCHEN LEAD, BMP, HSTROPN #### [facility] [address] [place] [address] Dr. Fabrizio Pascual BLAST # Normal [facility] Comment on above: Performed By: #### B KITCHEN LEAD, BMP, HSTROPN #### [facility] [address] [address] [address] Fabrizio Pascual BLAST % Normal [facility] Comment on above: Performed By: #### B KITCHEN LEAD, BMP, HSTROPN #### [facility] [address] [address] [address] Fabrizio Pascual CORRECTED WBC Normal 4.0-11.0 [facility] Comment on above: Performed By: #### B KITCHEN LEAD, BMP, HSTROPN #### [facility] [address] [address] [address] Fabrizio Pascual EOS # 0.07 103/ul Normal 0.00-0.70 [facility] Comment on above: Performed By: #### B KITCHEN LEAD, BMP, HSTROPN #### [facility] [address] [address] [address] Fabrizio Pascual EOS% 1.0 % Normal 0.9-7.0 [facility] Comment on above: Performed By: #### B KITCHEN LEAD, BMP, HSTROPN #### [facility] [address] [address] [address] Fabrizio Pascual HCT 38.8 % Critically low 42.0-54.0 [facility] Comment on above: Performed By: #### B KITCHEN LEAD, BMP, HSTROPN #### [facility] [address] [address] [address] Fabrizio Pascual HGB 12.5 g/dl Critically low 14.0-18.0 [facility] Comment on above: Performed By: #### B KITCHEN LEAD, BMP, HSTROPN #### [facility] [address] [address] [address] Fabrizio Pascual LYMPHM # 0.68 103/ul Critically low 1.20-3.80 [facility] Comment on above: Performed By: #### B KITCHEN LEAD, BMP, HSTROPN #### [facility] [address] [address] [address] Fabrizio Pascual LYMPHM% 9.0 % Critically low 20.5-60.0 [facility] Comment on above: Performed By: #### B KITCHEN LEAD, BMP, HSTROPN #### [facility] [address] [address] [address] Fabrizio Pascual MCH 28.1 pg Normal 25.9-34.0 [facility] Comment on above: Performed By: #### B KITCHEN LEAD, BMP, HSTROPN #### [facility] [address] [address] [address] Fabrizio Pascual MCHC 32.2 g/dl Normal 29.9-35.2 [facility] Comment on above: Performed By: #### B KITCHEN LEAD, BMP, HSTROPN #### [facility] [address] [place] [address] Dr. Fabrizio Pascual MCV 87.2 fL Normal 80.0-94.0 [facility] Comment on above: Performed By: #### B KITCHEN LEAD, BMP, HSTROPN #### [facility] [address] [place] [address] Dr. Fabrizio Pascual METAMYELOCYTE # Normal [facility] Comment on above: Performed By: #### B KITCHEN LEAD, BMP, HSTROPN #### [facility] [address] [place] [address] Dr. Fabrizio Pascual METAMYELOCYTE % Normal [facility] Comment on above: Performed By: #### B KITCHEN LEAD, BMP, HSTROPN #### [facility] [address] [place] [address] Dr. Fabrizio Pascual MONOM# 0.82 103/ul Critically high 0.30-0.80 [facility] Comment on above: Performed By: #### B KITCHEN LEAD, BMP, HSTROPN #### [facility] [address] [place] [address] Dr. Fabrizio Pascual MONOM% 11.0 % Normal 1.7-12.0 [facility] Comment on above: Performed By: #### B KITCHEN LEAD, BMP, HSTROPN #### [facility] [address] [place] [address] Dr. Fabrizio Pascual MPV 9.2 fL Critically low 9.5-13.5 [facility] Comment on above: Performed By: #### B KITCHEN LEAD, BMP, HSTROPN #### [facility] [address] [address] [address] Fabrizio Pascual MYELOCYTE # Normal [facility] Comment on above: Performed By: #### B KITCHEN LEAD, BMP, HSTROPN #### [facility] [address] [address] [address] Fabrizio Pascual MYELOCYTE % Normal [facility] Comment on above: Performed By: #### B KITCHEN LEAD, BMP, HSTROPN #### [facility] [address] [place] [address] Dr. Fabrizio Pascual NRBC Normal [facility] Comment on above: Performed By: #### B KITCHEN LEAD, BMP, HSTROPN #### [facility] [address] [place] [address] Dr. Fabrizio Pascual PLT 272 103/ul Normal 150-450 [facility] Comment on above: Performed By: #### B KITCHEN LEAD, BMP, HSTROPN #### [facility] [address] [place] [address] Dr. Fabrizio Pascual RBC 4.45 106/ul Critically low 4.70-6.10 [facility] Comment on above: Performed By: #### B KITCHEN LEAD, BMP, HSTROPN #### [facility] [address] [place] [address] Dr. Fabrizio Pascual RDW 13.7 % Normal 11.0-15.0 [facility] Comment on above: Performed By: #### B KITCHEN LEAD, BMP, HSTROPN #### [facility] [address] [place] [address] Dr. Fabrizio Pascual SEG # 5.85 103/ul Normal 1.40-6.50 [facility] Comment on above: Performed By: #### B KITCHEN LEAD, BMP, HSTROPN #### [facility] [address] [place] [address] Dr. Fabrizio Pascual SEG % 78.0 % Critically high 43.0-75.0 [facility] Comment on above: Performed By: #### B KITCHEN LEAD, BMP, HSTROPN #### [facility] [address] [place] [address] Dr. Fabrizio Pascual WBC 7.5 103/ul Normal 4.0-11.0 [facility] Comment on above: Performed By: #### B KITCHEN LEAD, BMP, HSTROPN #### [facility] [address] [place] [address] Dr. Fabrizio Pascual PROF CHEM 8 (BAS METB)on Anion gap [Moles/Vol] 10.1 mmol/L Normal [facility] Comment on above: Performed By: #### U YADIRA, BMP, TSH #### [facility] [address] [place] [address] Dr. Fabrizio Pascual Calcium [Mass/Vol] 9.0 mg/dL Normal 8.5-10.1 [facility] Comment on above: Performed By: #### U YADIRA, BMP, TSH #### [facility] [address] [place] [address] Dr. Fabrizio Pascual Chloride [Moles/Vol] 99 mmol/L Normal 98-107 [facility] Comment on above: Performed By: #### U YADIRA, BMP, TSH #### [facility] [address] [place] [address] Dr. Fabrizio Pascual CO2 [Moles/Vol] 28.9 mmol/L Normal 21.0-32.0 [facility] Comment on above: Performed By: #### U YADIRA, BMP, TSH #### [facility] [address] [place] [address] Dr. Fabrizio Pascual Creatinine [Mass/Vol] 1.00 mg/dL Normal 0.70-1.30 [facility] Comment on above: Performed By: #### U YADIRA, BMP, TSH #### [facility] [address] [place] [address] Dr. Fabrizio Pascual EGFR-AF MALAWIAN >60 Normal >=60 [facility] Comment on above: Performed By: #### U YADIRA, BMP, TSH #### [facility] [address] [place] [address] Dr. Fabrizio Pascual EGFR-NON AF MALAWIAN >60 Normal >=60 [facility] Comment on above: Performed By: #### U YADIRA, BMP, TSH #### [facility] [address] [address] [address] Fabrizio Pascual Glucose [Mass/Vol] 111 mg/dL Critically high 74-106 [facility] Comment on above: Performed By: #### U YADIRA, BMP, TSH #### [facility] [address] [place] [address] Dr. Fabrizio Pascual Potassium [Moles/Vol] 4.0 mmol/L Normal 3.5-5.1 [facility] Comment on above: Performed By: #### U YADIRA, BMP, TSH #### [facility] [address] [place] [address] Dr. Fabrizio Pascual Sodium [Moles/Vol] 134 mmol/L Critically low 136-145 [facility] Comment on above: Performed By: #### U YADIRA, BMP, TSH #### [facility] [address] [place] [address] Dr. Fabrizio Pascual Urea nitrogen [Mass/Vol] 16.0 mg/dL Normal 7.0-18.0 [facility] Comment on above: Performed By: #### U YADIRA, BMP, TSH #### [facility] [address] [place] [address] Dr. Fabrizio Pascual Urea nitrogen/Creatinine [Mass ratio] 16.0 mg/mg Normal [facility] Comment on above: Performed By: #### U YADIRA, BMP, TSH #### [facility] [address] [place] [address] Dr. Fabrizio Pascual SODIUM RANDOM URINEon 2022 Sodium (U) [Moles/Vol] 78 mmol/L Normal 30-90 [facility] Comment on above: Performed By: #### N AU #### [facility] [address] [place] [address] Dr. Fabrizio Pascual US TAHIR DOP LEG [...] by: GREGG QUIROS Date: 2022-05-16 15:34 Normal [facility] BNPon 04-19-2022 Natriuretic peptide B (Bld) [Mass/Vol] 719.0 pg/mL Normal <=900.0 [facility] Comment on above: Performed By: #### B KITCHEN LEAD, BMP, HSTROPN #### [facility] [address] [place] [address] Dr. Fabrizio Pascual CBC AUTO DIFFon 04-19-2022 BASO # 0.0 103/ul Normal 0.0-0.1 [facility] Comment on above: Performed By: #### C BC #### [facility] [address] [place] [address] Dr. Fabrizio Pascual Basophils/100 WBC (Bld) 0.2 % Normal 0.2-2.0 [facility] Comment on above: Performed By: #### C BC #### [facility] [address] [place] [address] Dr. Fabrizio Pascual EO # 0.1 103/ul Normal 0.0-0.7 [facility] Comment on above: Performed By: #### C BC #### [facility] [address] [place] [address] Dr. Fabrizio Pascual Eosinophils/100 WBC (Bld) 1.0 % Normal 0.9-7.0 [facility] Comment on above: Performed By: #### C BC #### [facility] [address] [place] [address] Dr. Fabrizio Pascual Erythrocyte distribution width (RBC) [Ratio] 13.1 % Normal 11.0-15.0 [facility] Comment on above: Performed By: #### C BC #### [facility] [address] [place] [address] Dr. Fabrizio Pascual Hematocrit (Bld) [Volume fraction] 32.6 % Critically low 42.0-54.0 [facility] Comment on above: Performed By: #### C BC #### [facility] [address] [place] [address] Dr. Fabrizio Pascual Hemoglobin (Bld) [Mass/Vol] 10.9 g/dL Critically low 14.0-18.0 [facility] Comment on above: Performed By: #### C BC #### [facility] [address] [place] [address] Dr. Fabrizio Pascual IG # 0.06 10e3/ul Critically high 0.00-0.03 [facility] Comment on above: Performed By: #### C BC #### [facility] [address] [place] [address] Dr. Fabrizio Pascual IG % 0.6 % Critically high 0.0-0.5 [facility] Comment on above: Performed By: #### C BC #### [facility] [address] [place] [address] Dr. Fabrizio Pascual LYMPH # 0.6 103/ul Critically low 1.2-3.8 [facility] Comment on above: Performed By: #### C BC #### [facility] [address] [place] [address] Dr. Fabrizio Pascual Lymphocytes/100 WBC (Bld) 5.8 % Critically low 20.5-60.0 [facility] Comment on above: Performed By: #### C BC #### [facility] [address] [place] [address] Dr. Fabrizio Pascual MANUAL DIFF REQ NO Normal [facility] Comment on above: Performed By: #### C BC #### [facility] [address] [place] [address] Dr. Fabrizio Pascual MCH (RBC) [Entitic mass] 29.3 pg Normal 25.9-34.0 [facility] Comment on above: Performed By: #### C BC #### [facility] [address] [place] [address] Dr. Fabrizio Pascual MCHC (RBC) [Mass/Vol] 33.4 g/dL Normal 29.9-35.2 [facility] Comment on above: Performed By: #### C BC #### [facility] [address] [address] [address] Fabrizio Pascual MCV (RBC) [Entitic vol] 87.6 fL Normal 80.0-94.0 [facility] Comment on above: Performed By: #### C BC #### [facility] [address] [address] [address] Fabrizio Pascual MONO # 1.4 103/ul Critically high 0.3-0.8 [facility] Comment on above: Performed By: #### C BC #### [facility] [address] [place] [address] Dr. Fabrizio Pascual Monocytes/100 WBC (Bld) 13.4 % Critically high 1.7-12. 0 [facility] Comment on above: Performed By: #### C BC #### [facility] [address] [place] [address] Dr. Fabrizio Pascual NEUT # 8.4 103/ul Critically high 1.4-6.5 [facility] Comment on above: Performed By: #### C BC #### [facility] [address] [place] [address] Dr. Fabrizio Pascual Neutrophils/100 WBC (Bld) 79.0 % Critically high 43.0-75.0 [facility] Comment on above: Performed By: #### C BC #### [facility] [address] [place] [address] Dr. Fabrizio Pascual Platelet mean volume (Bld) [Entitic vol] 9.1 fL Critically low 9.5-13.5 [facility] Comment on above: Performed By: #### C BC #### [facility] [address] [place] [address] Dr. Fabrizio Pascual PLT 347 103/ul Normal 150-450 [facility] Comment on above: Performed By: #### C BC #### [facility] [address] [place] [address] Dr. Fabrizio Pascual RBC 3.72 106/ul Critically low 4.70-6.10 [facility] Comment on above: Performed By: #### C BC #### [facility] [address] [place] [address] Dr. Fabrizio Pascual WBC 10.7 103/ul Normal 4.0-11.0 [facility] Comment on above: Performed By: #### C BC #### [facility] [address] [place] [address] Dr. Fabrizio Pascual [facility]on SARS-CoV-2 (COVID-19) RNA HOWIE+probe Ql (Unsp spec) Not detected Normal NOT DETECTED [facility] Comment on above: Result Comment: When [...] for this test is supported by the [place] of [employer] and Human Service's declaration that [...] used). Performed By: #### C VDTBH #### [facility] [address] [place] [address] Dr. Fabrizio Pascual INFLUENZA A AND B AGon 04-19 INFLUANEGH SEE BELOW Normal [facility] Comment on above: Result Comment: Nega tive for Flu A protein angiten. Infection due to Flu A cannot be ruled out. Flu A angiten in the sample may be below the detection limit of the test. Performed By: #### U YADIRA, BMP, TSH #### [facility] [address] [place] [address] Dr. Fabrizio Pascual INFLUBNEGH SEE BELOW Normal [facility] Comment on above: Result Comment: Nega tive for Flu B protein antigen. Infection due to Flu B cannot be ruled out. Flu B antigen in the sample may be below the detection limit of the test. Performed By: #### U YADIRA, BMP, TSH #### [facility] [address] [place] [address] Dr. Fabrizio Pascual INFLUENZA A AG Negative Normal NEGATIVE SEE COMMENT [facility] Comment on above: Performed By: #### U YADIRA, BMP, TSH #### [facility] [address] [place] [address] Dr. Fabrizio Pascual INFLUENZA B AG Negative Normal NEGATIVE SEE COMMENT [facility] Comment on above: Performed By: #### U YADIRA, BMP, TSH #### [facility] [address] [place] [address] Dr. Fabrizio Pascual INTERNAL CONTROLS Within Normal Limits Normal Wi thin Normal Limits [facility] Comment on above: Performed By: #### U YADIRA, BMP, TSH #### [facility] [address] [place] [address] Dr. Fabrizio Pascual PROF CHEM 8 (BAS METB)on Anion gap [Moles/Vol] 10.8 mmol/L Normal [facility] Comment on above: Performed By: #### B KITCHEN LEAD, BMP, HSTROPN #### [facility] [address] [place] [address] Dr. Fabrizio Pascual Calcium [Mass/Vol] 8.8 mg/dL Normal 8.5-10.1 [facility] Comment on above: Performed By: #### B KITCHEN LEAD, BMP, HSTROPN #### [facility] [address] [place] [address] Dr. Fabrizio Pascual Chloride [Moles/Vol] 94 mmol/L Critically low 98-107 [facility] Comment on above: Performed By: #### B KITCHEN LEAD, BMP, HSTROPN #### [facility] [address] [place] [address] Dr. Fabrizio Pascual CO2 [Moles/Vol] 27.7 mmol/L Normal 21.0-32.0 [facility] Comment on above: Performed By: #### B KITCHEN LEAD, BMP, HSTROPN #### [facility] [address] [place] [address] Dr. Fabrizio Pascual Creatinine [Mass/Vol] 1.09 mg/dL Normal 0.70-1.30 [facility] Comment on above: Performed By: #### B KITCHEN LEAD, BMP, HSTROPN #### [facility] [address] [place] [address] Dr. Fabrizio Pascual EGFR-AF MALAWIAN >60 Normal >=60 [facility] Comment on above: Performed By: #### B KITCHEN LEAD, BMP, HSTROPN #### [facility] [address] [place] [address] Dr. Fabrizio Pascual EGFR-NON AF MALAWIAN >60 Normal >=60 [facility] Comment on above: Performed By: #### B KITCHEN LEAD, BMP, HSTROPN #### [facility] [address] [place] [address] Dr. Fabrizio Pascual Glucose [Mass/Vol] 103 mg/dL Normal 74-106 [facility] Comment on above: Performed By: #### B KITCHEN LEAD, BMP, HSTROPN #### [facility] [address] [place] [address] Dr. Fabrizio Pascual Potassium [Moles/Vol] 3.5 mmol/L Normal 3.5-5.1 [facility] Comment on above: Performed By: #### B KITCHEN LEAD, BMP, HSTROPN #### [facility] [address] [place] [address] Dr. Fabrizio Pascual Sodium [Moles/Vol] 129 mmol/L Critically low 136-145 [facility] Comment on above: Performed By: #### B KITCHEN LEAD, BMP, HSTROPN #### [facility] [address] [place] [address] Dr. Fabrizio Pascual Urea nitrogen [Mass/Vol] 15.0 mg/dL Normal 7.0-18.0 [facility] Comment on above: Performed By: #### B KITCHEN LEAD, BMP, HSTROPN #### [facility] [address] [place] [address] Dr. Fabrizio Pascual Urea nitrogen/Creatinine [Mass ratio] 13.8 mg/mg Normal [facility] Comment on above: Performed By: #### B KITCHEN LEAD, BMP, HSTROPN #### [facility] [address] [place], [place] [address] Dr. Fabrizio Pascual TROPONIN, HIGH SENSITIVITYon 04-19-2022 HSTROP 8.5 pg/mL Normal 4.0-76.1 [facility] Comment on above: Result Comment: CUT- OFF POINTS HAVE BEEN ESTABLISHED BASED ON THE FOURTH UNIVERSAL DEFINITIONS OF MYOCARDIAL INFARCTION. THE UPPER REFERENCE LIMIT (URL) OF TROPONIN, DEFINED THE 99TH PERCENTILE OF cTnI DISTRIBUTION IN A REFERENCE POPULATION, HAS BEEN CONFIRMED THE DECISION THRESHOLD FOR VT DIAGNOSIS. Performed By: #### B KITCHEN LEAD, BMP, HSTROPN #### [facility] [address] [place], [place] [address] Dr. Fabrizio Pascual XR CHEST 1 Von [...] by: JAYDEN VALENTINE Date: 2022-04-19 17:36 Normal [facility] MRI BRAIN WO W CONon 022 [...] by: CORINNE OCHOA Date: 2021-12-14 06:[address] [facility] [address] CHEST WO CONon 12-13-2021 CT [...] by: CORINNE OCHOA Date: 2021-12-13 18:10 Normal [facility] OSMOLALITYon 12-02-2021 Osmolality [Osmolality] 275 mosm/kg Critically low 280-301 [facility] Comment on above: Performed By: #### O SMO #### [facility] [address] [address] [address] Fabrizio Pascual CORTISOLon 12-01-2021 Cortisol 1.2 ug/dL Normal [facility] Comment on above: Result Comment: Delio isol AM 6.2 - 19.4 Cortisol PM 2.3 - 11.9 Performed By: #### U YADIRA, BMP, TSH #### [facility] [address] [place] [address] Dr. Fabrizio Pascual OSMOLALITY URINEon Osmolality, Urine 236 mOsmol/kg Normal [facility] Comment on above: Result Comment: 24 h r : 300 - 900 Random: 50 - 1400 After 12hr fluid restriction: >850 Performed By: #### U YADIRA, BMP, TSH #### [facility] [address] [address] [address] Fabrizio Pascual PROF CHEM 8 (BAS METB)on Anion gap [Moles/Vol] 10.1 mmol/L Normal [facility] Comment on above: Performed By: #### U YADIRA, BMP, TSH #### [facility] [address] [place] [address] Dr. Fabrizio Pascual Calcium [Mass/Vol] 8.8 mg/dL Normal 8.5-10.1 [facility] Comment on above: Performed By: #### U YADIRA, BMP, TSH #### [facility] [address] [place] [address] Dr. Fabrizio Pascual Chloride [Moles/Vol] 97 mmol/L Critically low 98-107 [facility] Comment on above: Performed By: #### U YADIRA, BMP, TSH #### [facility] [address] [place] [address] Dr. Fabrizio Pascual CO2 [Moles/Vol] 28.9 mmol/L Normal 21.0-32.0 [facility] Comment on above: Performed By: #### U YADIRA, BMP, TSH #### [facility] [address] [address] [address] Fabrizio Pascual Creatinine [Mass/Vol] 1.08 mg/dL Normal 0.70-1.30 [facility] Comment on above: Performed By: #### U YADIRA, BMP, TSH #### [facility] [address] [address] [address] Fabrizio Pascual EGFR-AF MALAWIAN >60 Normal >=60 [facility] Comment on above: Performed By: #### U YADIRA, BMP, TSH #### [facility] [address] [address] [address] Fabrizio Pascual EGFR-NON AF MALAWIAN >60 Normal >=60 [facility] Comment on above: Performed By: #### U YADIRA, BMP, TSH #### [facility] [address] [address] [address] Fabrizio Pascual Glucose [Mass/Vol] 106 mg/dL Normal 74-106 [facility] Comment on above: Performed By: #### U YADIRA, BMP, TSH #### [facility] [address] [address] [address] Fabrizio Pascual Potassium [Moles/Vol] 4.0 mmol/L Normal 3.5-5.1 [facility] Comment on above: Performed By: #### U YADIRA, BMP, TSH #### [facility] [address] [address] [address] Fabrizio Pascual Sodium [Moles/Vol] 132 mmol/L Critically low 136-145 [facility] Comment on above: Performed By: #### U YADIRA, BMP, TSH #### [facility] [address] [address] [address] Fabrizio Pascual Urea nitrogen [Mass/Vol] 18.0 mg/dL Normal 7.0-18.0 [facility] Comment on above: Performed By: #### U YADIRA, BMP, TSH #### [facility] [address] [address] [address] Fabrizio Pascual Urea nitrogen/Creatinine [Mass ratio] 16.7 mg/mg Normal [facility] Comment on above: Performed By: #### U YADIRA, BMP, TSH #### [facility] [address] [address] [address] Fabrizio Pascual SODIUM RANDOM URINEon 2021 Sodium (U) [Moles/Vol] 82 mmol/L Normal 30-90 [facility] Comment on above: Performed By: #### B KITCHEN LEAD, BMP, HSTROPN #### [facility] [address] [address] [address] Fabrizio Pascual TSHon 11-30-2021 TSH 1.576 uIU/mL Normal 0.358-3.74 0 [facility] Comment on above: Performed By: #### U YADIRA, BMP, TSH #### [facility] [address] [place] [address] Dr. Fabrizio Pascual URIC ACID SERUMon 11-30-2021 Urate [Mass/Vol] 7.2 mg/dL Normal 3.5-7.2 [facility] Comment on above: Performed By: #### U YADIRA, BMP, TSH #### [facility] [address] [place] [address] Dr. Fabrizio Pascual PROF CHEM 8 (BAS METB)on Anion gap [Moles/Vol] 14.8 mmol/L Normal [facility] Comment on above: Performed By: #### U YADIRA, BMP, TSH #### [facility] [address] [place] [address] Dr. Fabrizio Pascual Calcium [Mass/Vol] 9.1 mg/dL Normal 8.5-10.1 [facility] Comment on above: Performed By: #### U YADIRA, BMP, TSH #### [facility] [address] [place] [address] Dr. Fabrizio Pascual Chloride [Moles/Vol] 91 mmol/L Critically low 98-107 [facility] Comment on above: Performed By: #### U YADIRA, BMP, TSH #### [facility] [address] [place] [address] Dr. Fabrizio Pascual CO2 [Moles/Vol] 22.2 mmol/L Normal 21.0-32.0 [facility] Comment on above: Performed By: #### U YADIRA, BMP, TSH #### [facility] [address] [address] [address] Fabrizio Pascual Creatinine [Mass/Vol] 0.97 mg/dL Normal 0.70-1.30 [facility] Comment on above: Performed By: #### U YADIRA, BMP, TSH #### [facility] [address] [address] [address] Fabrizio Pascual EGFR-AF MALAWIAN >60 Normal >=60 [facility] Comment on above: Performed By: #### U YADIRA, BMP, TSH #### [facility] [address] [address] [address] Fabrizio Pascual EGFR-NON AF MALAWIAN >60 Normal >=60 [facility] Comment on above: Performed By: #### U YADIRA, BMP, TSH #### [facility] [address] [address] [address] Fabrizio Pascual Glucose [Mass/Vol] 144 mg/dL Critically high 74-106 T [facility] Comment on above: Performed By: #### U YADIRA, BMP, TSH #### [facility] [address] [address] [address] Fabrizio Pascual Potassium [Moles/Vol] 4.0 mmol/L Normal 3.5-5.1 [facility] Comment on above: Performed By: #### U YADIRA, BMP, TSH #### [facility] [address] [address] [address] Fabrizio Pascual Sodium [Moles/Vol] 124 mmol/L Critically low 136-145 Th [facility] Comment on above: Performed By: #### U YADIRA, BMP, TSH #### [facility] [address] [address] [address] Fabrizio Pascual Urea nitrogen [Mass/Vol] 18.0 mg/dL Normal 7.0-18.0 [facility] Comment on above: Performed By: #### U YADIRA, BMP, TSH #### [facility] [address] [place] [address] Dr. Fabrizio Pascual Urea nitrogen/Creatinine [Mass ratio] 18.6 mg/mg Normal [facility] Comment on above: Performed By: #### U YADIRA, BMP, TSH #### [facility] [address] [place] [address] Dr. Fabrizio Pascual BNPon 11-15-2021 Natriuretic peptide B (Bld) [Mass/Vol] 1143.0 pg/mL Critically high <=900.0 [facility] Comment on above: Performed By: #### U YADIRA, BMP, TSH #### [facility] [address] [place] [address] Dr. Fabrizio Pascual CBC W MANUAL DIFFon 11-16-19 22 ATYPICAL LYMPH # Normal [facility] Comment on above: Performed By: #### U YADIRA, BMP, TSH #### [facility] [address] [place] [address] Dr. Fabrizio Pascual ATYPICAL LYMPH % Normal [facility] Comment on above: Performed By: #### U YADIRA, BMP, TSH #### [facility] [address] [place] [address] Dr. Fabrizio Pascual BAND # 0.0 103/ul Normal 0.0-0.3 [facility] Comment on above: Performed By: #### U YADIRA, BMP, TSH #### [facility] [address] [place] [address] Dr. Fabrizio Pascual BAND % 0 % Normal 0-5 [facility] Comment on above: Performed By: #### U YADIRA, BMP, TSH #### [facility] [address] [place] [address] Dr. Fabrizio Pascual BASOM # 0.00 103/ul Normal 0.00-0.10 [facility] Comment on above: Performed By: #### U YADIRA, BMP, TSH #### [facility] [address] [place] [address] Dr. Fabrizio Pascual BASOM % 0.0 % Critically low 0.2-2.0 [facility] Comment on above: Performed By: #### U YADIRA, BMP, TSH #### [facility] [address] [address] [address] Fabrizio Pascual BLAST # Normal [facility] Comment on above: Performed By: #### U YADIRA, BMP, TSH #### [facility] [address] [place] [address] Dr. Fabrizio Pascual BLAST % Normal [facility] Comment on above: Performed By: #### U YADIRA, BMP, TSH #### [facility] [address] [place] [address] Dr. Fabrizio Pascual CORRECTED WBC Normal 4.0-11.0 [facility] Comment on above: Performed By: #### U YADIRA, BMP, TSH #### [facility] [address] [place] [address] Dr. Fabrizio Pascual EOS # 0.24 103/ul Normal 0.00-0.70 [facility] Comment on above: Performed By: #### U YADIRA, BMP, TSH #### [facility] [address] [place] [address] Dr. Fabrizio Pascual EOS% 2.0 % Normal 0.9-7.0 [facility] Comment on above: Performed By: #### U YADIRA, BMP, TSH #### [facility] [address] [place] [address] Dr. Fabrizio Pascual HCT 37.1 % Critically low 42.0-54.0 [facility] Comment on above: Performed By: #### U YADIRA, BMP, TSH #### [facility] [address] [place] [address] Dr. Fabrizio Pascual HGB 12.3 g/dl Critically low 14.0-18.0 [facility] Comment on above: Performed By: #### U YADIRA, BMP, TSH #### [facility] [address] [place] [address] Dr. Fabrizio Pascual LYMPHM # 0.60 103/ul Critically low 1.20-3.80 [facility] Comment on above: Performed By: #### U YADIRA, BMP, TSH #### [facility] [address] [place] [address] Dr. Fabrizio Pascual LYMPHM% 5.0 % Critically low 20.5-60.0 [facility] Comment on above: Performed By: #### U YADIRA, BMP, TSH #### [facility] [address] [place] [address] Dr. Fabrizio Pascual MCH 29.3 pg Normal 25.9-34.0 [facility] Comment on above: Performed By: #### U YADIRA, BMP, TSH #### [facility] [address] [place] [address] Dr. Fabrizio Pascual MCHC 33.2 g/dl Normal 29.9-35.2 [facility] Comment on above: Performed By: #### U YADIRA, BMP, TSH #### [facility] [address] [place] [address] Dr. Fabrizio Pascual MCV 88.3 fL Normal 80.0-94.0 [facility] Comment on above: Performed By: #### U YADIRA, BMP, TSH #### [facility] [address] [place] [address] Dr. Fabrizio Pascual METAMYELOCYTE # Normal [facility] Comment on above: Performed By: #### U YADIRA, BMP, TSH #### [facility] [address] [place] [address] Dr. Fabrizio Pascual METAMYELOCYTE % Normal [facility] Comment on above: Performed By: #### U YADIRA, BMP, TSH #### [facility] [address] [place] [address] Dr. Fabrizio Pascual MONOM# 0.60 103/ul Normal 0.30-0.80 [facility] Comment on above: Performed By: #### U YADIRA, BMP, TSH #### [facility] [address] [place] [address] Dr. Fabrizio Pascual MONOM% 5.0 % Normal 1.7-12.0 [facility] Comment on above: Performed By: #### U YADIRA, BMP, TSH #### [facility] [address] [place] [address] Dr. Fabrizio Pascual MPV 9.2 fL Critically low 9.5-13.5 [facility] Comment on above: Performed By: #### U YADIRA, BMP, TSH #### [facility] [address] [address] [address] Fabrizio Pascual MYELOCYTE # Normal [facility] Comment on above: Performed By: #### U YADIRA, BMP, TSH #### [facility] [address] [address] [address] Fabrizio Pascual MYELOCYTE % Normal [facility] Comment on above: Performed By: #### U YADIRA, BMP, TSH #### [facility] [address] [address] [address] Fabrizio Pascual NRBC Normal [facility] Comment on above: Performed By: #### U YADIRA, BMP, TSH #### [facility] [address] [place] [address] Dr. Fabrizio Pascual PLT 227 103/ul Normal 150-450 [facility] Comment on above: Performed By: #### U YADIRA, BMP, TSH #### [facility] [address] [place] [address] Dr. Fabrizio Pascual RBC 4.20 106/ul Critically low 4.70-6.10 [facility] Comment on above: Performed By: #### U YADIRA, BMP, TSH #### [facility] [address] [place] [address] Dr. Fabrizio Pascual RDW 14.0 % Normal 11.0-15.0 [facility] Comment on above: Performed By: #### U YADIRA, BMP, TSH #### [facility] [address] [place] [address] Dr. Fabrizio Pascual SEG # 10.65 103/ul Critically high 1.40-6.50 [facility] Comment on above: Performed By: #### U YADIRA, BMP, TSH #### [facility] [address] [place] [address] Dr. Fabrizio Pascual SEG % 88.0 % Critically high 43.0-75.0 [facility] Comment on above: Performed By: #### U YADIRA, BMP, TSH #### [facility] [address] [place] [address] Dr. Fabrizio Pascual WBC 12.1 103/ul Critically high 4.0-11.0 [facility] Comment on above: Performed By: #### U YADIRA BMP, TSH #### [facility] [address] [place] [address] Dr. Fabrizio Pascual CULTURE BLOODon 11-15-2021 Microscopic examination of blood, culture Culture Observations: NO GROWTH AT 5 DAYS. Normal [facility] Comment on above: Performed By: #### U YADIRA BMP, TSH #### [facility] [address] [address] [address] Fabrizio Pascual Microscopic examination of blood, culture Culture Observations: NO GROWTH AT 5 DAYS. Normal [facility] Comment on above: Performed By: #### U YADIRA BMP, TSH #### [facility] [address] [place] [address] Dr. Fabrizio Pascual [facility]on SARS-CoV-2 (COVID-19) RNA HOWIE+probe Ql (Unsp spec) Not detected Normal NOT DETECTED [facility] Comment on above: Result Comment: When [...] for this test is supported by the [employer] of Health and Human Service's declaration that [...] longer be used). Performed By: #### U YADIRA BMP, TSH #### [facility] [address] [place] [address] Dr. Fabrizio Pascual LACTATE/LACTIC ACIDon 2021 Lactate [Moles/Vol] 1.2 mmol/L Normal 0.4-1.9 [facility] Comment on above: Performed By: #### B KITCHEN LEAD, BMP, HSTROPN #### [facility] [address] [place] [address] Dr. Fabrizio Pascual PROF CHEM 8 (BAS METB)on Anion gap [Moles/Vol] 13.7 mmol/L Normal [facility] Comment on above: Performed By: #### U YADIRA, BMP, TSH #### [facility] [address] [place] [address] Dr. Fabrizio Pascual Calcium [Mass/Vol] 8.8 mg/dL Normal 8.5-10.1 [facility] Comment on above: Performed By: #### U YADIRA, BMP, TSH #### [facility] [address] [place] [address] Dr. Fabrizio Pascual Chloride [Moles/Vol] 91 mmol/L Critically low 98-107 [facility] Comment on above: Performed By: #### U YADIRA, BMP, TSH #### [facility] [address] [place] [address] Dr. Fabrizio Pascual CO2 [Moles/Vol] 25.0 mmol/L Normal 21.0-32.0 [facility] Comment on above: Performed By: #### U YADIRA, BMP, TSH #### [facility] [address] [place] [address] Dr. Fabrizio Pascual Creatinine [Mass/Vol] 0.97 mg/dL Normal 0.70-1.30 [facility] Comment on above: Performed By: #### U YADIRA, BMP, TSH #### [facility] [address] [place] [address] Dr. Fabrizio Pascual EGFR-AF MALAWIAN >60 Normal >=60 [facility] Comment on above: Performed By: #### U YADIRA, BMP, TSH #### [facility] [address] [place] [address] Dr. Fabrizio Pascual EGFR-NON AF MALAWIAN >60 Normal >=60 [facility] Comment on above: Performed By: #### U YADIRA, BMP, TSH #### [facility] [address] [address] [address] Fabrizio Pascual Glucose [Mass/Vol] 85 mg/dL Normal 74-106 [facility] Comment on above: Performed By: #### U YADIRA BMP, TSH #### [facility] [address] [address] [address] Fabrizio Pascual Potassium [Moles/Vol] 3.7 mmol/L Normal 3.5-5.1 [facility] Comment on above: Performed By: #### U YADIRA BMP, TSH #### [facility] [address] [address] [address] Fabrizio Pascual Sodium [Moles/Vol] 126 mmol/L Critically low 136-145 [facility] Comment on above: Performed By: #### U YADIRA BMP, TSH #### [facility] [address] [place] [address] Dr. Fabrizio Pascual Urea nitrogen [Mass/Vol] 12.0 mg/dL Normal 7.0-18.0 [facility] Comment on above: Performed By: #### U YADIRA BMP, TSH #### [facility] [address] [address] [address] Fabrizio Pascual Urea nitrogen/Creatinine [Mass ratio] 12.4 mg/mg Normal [facility] Comment on above: Performed By: #### U YADIRA BMP, TSH #### [facility] [address] [place] [address] Dr. Fabrizio Pascual TROPONIN, HIGH SENSITIVITYon 11-15-2021 HSTROP 8.6 pg/mL Normal 4.0-76.1 [facility] Comment on above: Result Comment: CUT- OFF POINTS HAVE BEEN ESTABLISHED BASED ON THE FOURTH UNIVERSAL DEFINITIONS OF MYOCARDIAL INFARCTION. THE UPPER REFERENCE LIMIT (URL) OF TROPONIN, DEFINED THE 99TH PERCENTILE OF cTnI DISTRIBUTION IN A REFERENCE POPULATION, HAS BEEN CONFIRMED THE DECISION THRESHOLD FOR [place] DIAGNOSIS. Performed By: #### U YADIRA, BMP, TSH #### [facility] [address] [place] [address] Dr. Fabrizio Pascual XR CHEST 1 Von [...] DECLAN TRIPLETT Date: 2021-11-15 19:25 Normal [facility] COVID-19 Positive/NegativeOr dered By: Gregg Hilliard on 10-22-2021 SARS-CoV-2 (COVID-19) N gene HOWIE+probe Ql (Resp) Negative Negative [facility] Comment on above: Testing for SARS-CoV -2 by RT-PCR This test was developed and its performance characteristics determined by [employer] and validated at the [facility]. This test has not been FDA [...] year By signing my name below, I, Pavel Mcmanus LPN, attest that this documentation has been prepared [...] negative for complaint. Vitals Vital Signs Recorded: [id number] 02:51PM Heart Rate77, L Radial Odnrnkaz441, LUE, Sitting Kdhvknqxd76, LUE, Sitting Height6 ft Vlmrhw165 lb BMI Cdmtpwidnl50.87 kg/m2 BSA Calculated2.02 Tobacco Useb) No Fall [...] Apr 29 2021 5:34PM EST (Author) [employer] Tobacco Screening.on Fall risk assessment a) No falls within the last year [facility]Sandu rika 250 DO Work Phone: Tobacco use status [facility] b) No M [facility]u rika 250 DO Work Phone: MRI IAC WO/Won 12-21-2018 MRI IAC WO/W Patient Name: MARY MCADAMS STUDY: MRI IAC WO/W; 12/21/2018 2:15 pm INDICATION: CPA lesion. COMPARISON: None. ACCESSION NUMBER(S): [id number] ORDERING CLINICIAN: ERIN BAUTISTA TECHNIQUE: T2, FLAIR, [...] PHD Normal [facility] Vital Signs Date Time Vital Sign Value Performing Clinician Facility 01-21-2025 13:15-0400 Body height 182.88 cm Adam Ball DO Work Phone: [facility] 01-21-2025 13:15-0400 Body mass index (BMI) [Ratio] 18.4 kg/m2 Adam Ball DO Work Phone: [facility] 01-21-2025 13:15-0400 Body weight 61.68 kg Adam Ball DO Work Phone: [facility] 01-21-2025 13:15-0400 Diastolic blood pressure 80 mm[Hg] Adam Ball DO Work Phone: [facility] 01-21-2025 13:15-0400 Heart rate 92 /min Adam Ball DO Work Phone: [facility] 01-21-2025 13:15-0400 Respiratory rate 20 /min Adam Ball DO Work Phone: [facility] 01-21-2025 13:15-0400 SaO2% (BldA) [Mass fraction] 97 % Adam Ball DO Work Phone: [facility] 01-21-2025 13:15-0400 Systolic blood pressure 119 mm[Hg] Adam Ball DO Work Phone: [facility] 01-17-2025 11:12-0400 Body height 182.9 cm Maya Fuentes [facility] 01-17-2025 11:12-0400 Body mass index (BMI) [Ratio] 18.58 kg/m2 Maya Fuentes [facility] 01-17-2025 11:12-0400 Body weight 62.14 kg Maya Fuentes [facility] 01-17-2025 11:12-0400 Diastolic blood pressure 46 mm[Hg] Maya Fuentes [facility] 01-17-2025 11:12-0400 Heart rate 92 /min Maya Fuentes [facility] 01-17-2025 11:12-0400 Systolic blood pressure 94 mm[Hg] Maya Gutierrezrow [facility] 01-15-2025 08:48-0400 Body height 182.9 cm Ning Godoy [employer]ING OPERATOR[employer] Work Phone: [facility] 01-15-2025 08:48-0400 Diastolic blood pressure 52 mm[Hg] Ning Godoy STE[employer] CONDITIONING OPERATOR[employer] SALESPERSON Work Phone: [facility] 01-15-2025 08:48-0400 Heart rate 91 /min Ning Godoy STEAM CONDITIONING OPERATOR[employer]ERSON Work Phone: [facility] 01-15-2025 08:48-0400 Systolic blood pressure 78 mm[Hg] Ning Godoy STEAM CONDITIONING OPERATOR[employer] SALESPERSON Work Phone: [facility] 01-09-2025 16:00-0400 Body temperature 97.6 [degF] Adam Ball DO Work Phone: [facility] 01-09-2025 16:00-0400 Diastolic blood pressure 62 mm[Hg] Adam Ball DO Work Phone: [facility] 01-09-2025 16:00-0400 Heart rate 98 /min Adam Ball DO Work Phone: [facility] 01-09-2025 16:00-0400 Inhaled oxygen flow rate 3 L/min Adam Ball DO Work Phone: [facility] 01-09-2025 16:00-0400 Respiratory rate 18 /min Adam Ball DO Work Phone: [facility] 01-09-2025 16:00-0400 SaO2% (BldA) [Mass fraction] 97 % Adam Ball DO Work Phone: [facility] 01-09-2025 16:00-0400 Systolic blood pressure 108 mm[Hg] Adam Ball DO Work Phone: [facility] 01-09-2025 05:58-0400 Body weight 63.2 kg Adam Ball DO Work Phone: [facility] 01-06-2025 14:20-0400 Body height 182.88 cm Adam Ball DO Work Phone: [facility] 01-05-2025 14:00-0400 Diastolic blood pressure 75 mm[Hg] Adam Ball DO Work Phone: [facility] 01-05-2025 14:00-0400 Heart rate 85 /min Adam Ball DO Work Phone: [facility] 01-05-2025 14:00-0400 Inhaled oxygen flow rate 4 L/min Adam Ball DO Work Phone: [facility] 01-05-2025 14:00-0400 Respiratory rate 20 /min Adam Ball DO Work Phone: [facility] 01-05-2025 14:00-0400 SaO2% (BldA) [Mass fraction] 100 % Adam Ball DO Work Phone: [facility] 01-05-2025 14:00-0400 Systolic blood pressure 103 mm[Hg] Adam Ball DO Work Phone: [facility] 01-05-2025 11:18-0400 Inhaled oxygen concentration 30 % Adam Ball DO Work Phone: [facility] 01-05-2025 01:00-0400 Inhaled oxygen concentration 30 % Adam Ball DO Work Phone: [facility] 01-04-2025 22:04-0400 Body height 182.88 cm Adam Ball DO Work Phone: [facility] 01-04-2025 22:04-0400 Body temperature 98.3 [degF] Adam Ball DO Work Phone: [facility] 01-04-2025 22:04-0400 Body weight 63 kg Adam Ball DO Work Phone: [facility] 11-19-2024 08:58-0400 Body height 182.88 cm Adam Ball DO Work Phone: [facility] 11-19-2024 08:58-0400 Body mass index (BMI) [Ratio] 18.3 kg/m2 Adam Ball DO Work Phone: [facility] 11-19-2024 08:58-0400 Body weight 61.34 kg Adam Ball DO Work Phone: [facility] 11-19-2024 08:58-0400 Diastolic blood pressure 70 mm[Hg] Adam Ball DO Work Phone: [facility] 11-19-2024 08:58-0400 Heart rate 98 /min Adam Ball DO Work Phone: [facility] 11-19-2024 08:58-0400 Respiratory rate 14 /min Adam Ball DO Work Phone: [facility] 11-19-2024 08:58-0400 SaO2% (BldA) [Mass fraction] 99 % Adam Ball DO Work Phone: [facility] 11-19-2024 08:58-0400 Systolic blood pressure 122 mm[Hg] Adam Ball DO Work Phone: [facility] 11-12-2024 16:00-0400 Diastolic blood pressure 75 mm[Hg] Adam Ball DO Work Phone: [facility] 11-12-2024 16:00-0400 Heart rate 106 /min Adam Ball DO Work Phone: [facility] 11-12-2024 16:00-0400 Inhaled oxygen flow rate 2 L/min Adam Ball DO Work Phone: [facility] 11-12-2024 16:00-0400 Respiratory rate 18 /min Adam Ball DO Work Phone: [facility] 11-12-2024 16:00-0400 SaO2% (BldA) [Mass fraction] 100 % Adam Ball DO Work Phone: [facility] 11-12-2024 16:00-0400 Systolic blood pressure 121 mm[Hg] Adam Ball DO Work Phone: [facility] 11-12-2024 07:54-0400 Body temperature 97.3 [degF] Adam Ball DO Work Phone: [facility] 11-12-2024 06:00-0400 Body weight 61.8 kg Adam Ball DO Work Phone: [facility] 11-11-2024 14:36-0400 Body height 182.88 cm Adam Ball DO Work Phone: [facility] 11-11-2024 03:30-0400 Diastolic blood pressure 70 mm[Hg] Adam Ball DO Work Phone: [facility] 11-11-2024 03:30-0400 Heart rate 109 /min Adam Ball DO Work Phone: [facility] 11-11-2024 03:30-0400 Inhaled oxygen flow rate 2 L/min Adam Ball DO Work Phone: [facility] 11-11-2024 03:30-0400 Respiratory rate 24 /min Adam Ball DO Work Phone: [facility] 11-11-2024 03:30-0400 SaO2% (BldA) [Mass fraction] 98 % Adam Ball DO Work Phone: [facility] 11-11-2024 03:30-0400 Systolic blood pressure 105 mm[Hg] Adam Ball DO Work Phone: [facility] 11-11-2024 02:37-0400 Body temperature 97.6 [degF] Adam Ball DO Work Phone: [facility] 11-10-2024 22:44-0400 Body height 182.88 cm Adam Ball DO Work Phone: [facility] 11-10-2024 22:44-0400 Body weight 63.5 kg Adam Ball DO Work Phone: [facility] 10-31-2024 11:23-0400 Body height 185.4 cm Shannon Gonzalez MD Work Phone: [facility] 10-31-2024 11:23-0400 Body mass index (BMI) [Ratio] 18.07 kg/m2 Shannon Gonzalez MD Work Phone: [facility] 10-31-2024 11:23-0400 Body weight 62.14 kg Shannon Gonzalez MD Work Phone: [facility] 10-31-2024 11:23-0400 Diastolic blood pressure 68 mm[Hg] Shannon Gonzalez MD Work Phone: [facility] 10-31-2024 11:23-0400 Heart rate 88 /min Shannon Gonzalez MD Work Phone: [facility] 10-31-2024 11:23-0400 Systolic blood pressure 118 mm[Hg] Shannon Gonzalez MD Work Phone: [facility] 09-02-2024 14:55-0400 Body height 182.88 cm Adam Ball DO Work Phone: [facility] 09-02-2024 14:55-0400 Body mass index (BMI) [Ratio] 18.8 kg/m2 Adam Ball DO Work Phone: [facility] 09-02-2024 14:55-0400 Body weight 63.16 kg Adam Ball DO Work Phone: [facility] 09-02-2024 14:55-0400 Diastolic blood pressure 70 mm[Hg] Adam Ball DO Work Phone: [facility] 09-02-2024 14:55-0400 Heart rate 102 /min Adam Ball DO Work Phone: [facility] 09-02-2024 14:55-0400 Respiratory rate 12 /min Adam Ball DO Work Phone: [facility] 09-02-2024 14:55-0400 SaO2% (BldA) [Mass fraction] 94 % Adam Ball DO Work Phone: [facility] 09-02-2024 14:55-0400 Systolic blood pressure 104 mm[Hg] Adam Ball DO Work Phone: [facility] 07-25-2024 10:08-0400 Body height 185.4 cm [facility] 07-25-2024 10:08-0400 Body mass index (BMI) [Ratio] 18.6 kg/m2 [facility] 07-25-2024 10:08-0400 Body weight 63.96 kg [facility] 07-25-2024 10:08-0400 Diastolic blood pressure 68 mm[Hg] [facility] 07-25-2024 10:08-0400 Heart rate 103 /min [facility] 07-25-2024 10:08-0400 Systolic blood pressure 106 mm[Hg] [facility] 07-23-2024 16:49-0400 Body height 182.9 cm Edward Furlong DO Work Phone: [facility] 07-23-2024 16:49-0400 Body mass index (BMI) [Ratio] 18.88 kg/m2 Edward Fur[facility] DO [facility] 07-23-2024 16:49-0400 Body temperature 97.7 [degF] Edward Furlong DO [facility] 07-23-2024 16:49-0400 Body weight 63.14 kg Edward Furlong DO [facility] 07-23-2024 16:49-0400 Diastolic blood pressure 66 mm[Hg] Edward Furlong DO [facility] 07-23-2024 16:49-0400 Heart rate 76 /min Edward Furlong DO Work [facility] 07-23-2024 16:49-0400 Respiratory rate 18 /min Edawrd Furlong DO Work Phone: [facility] 07-23-2024 16:49-0400 SaO2% (BldA) [Mass fraction] 97 % Edward Furlong DO Work Phone: [facility] 07-23-2024 16:49-0400 Systolic blood pressure 114 mm[Hg] Edward Furlong DO Work Phone: [facility] 07-16-2024 15:02-0500 Body temperature 97.5 [degF] Edward Furlong DO Work Phone: [facility] 07-16-2024 15:02-0500 Body weight 63.78 kg Edward Furlong DO Work Phone: [facility] 07-16-2024 15:02-0500 Diastolic blood pressure 42 mm[Hg] Edward Furlong DO Work Phone: [facility] 07-16-2024 15:02-0500 Heart rate 80 /min Edward Furlong DO Work Phone: [facility] 07-16-2024 15:02-0500 Respiratory rate 20 /min Edwadr Furlong DO Work Phone: [facility] 07-16-2024 15:02-0500 SaO2% (BldA) [Mass fraction] 94 % Edward Furlong DO Work Phone: [facility] 07-16-2024 15:02-0500 Systolic blood pressure 64 mm[Hg] Edward Furlong DO Work Phone: [facility] 07-15-2024 15:06-0500 Body height 182.88 cm Adam Ball DO Work Phone: [facility] 07-15-2024 15:06-0500 Diastolic blood pressure 65 mm[Hg] Adam Ball DO Work Phone: [facility] 07-15-2024 15:06-0500 Heart rate 85 /min Adam Ball DO Work Phone: [facility] 07-15-2024 15:06-0500 Inhaled oxygen flow rate 2 L/min Adam Ball DO Work Phone: [facility] 07-15-2024 15:06-0500 Respiratory rate 20 /min Adam Ball DO Work Phone: [facility] 07-15-2024 15:06-0500 SaO2% (BldA) [Mass fraction] 78 % Adam Ball DO Work Phone: [facility] 07-15-2024 15:06-0500 Systolic blood pressure 99 mm[Hg] Adam Ball DO Work Phone: [facility] 07-10-2024 15:49-0500 Body temperature 97.59 [degF] Edward Furlong DO Work Phone: [facility] 07-10-2024 15:49-0500 Body weight 63.96 kg Edward [facility]long [facility] 07-10-2024 15:49-0500 Diastolic blood pressure 62 mm[Hg] Edward Furlong DO [facility] 07-10-2024 15:49-0500 Heart rate 84 /min Edward Furlong DO [facility] 07-10-2024 15:49-0500 Respiratory rate 18 /min Edward Furlong DO [facility] 07-10-2024 15:49-0500 SaO2% (BldA) [Mass fraction] 97 % Edward Furlong DO [facility] 07-10-2024 15:49-0500 Systolic blood pressure 124 mm[Hg] Edward Furlong DO [facility] 07-09-2024 12:05-0500 Heart rate 91 /min Adam Ball DO Work Phone: [facility] 07-09-2024 12:05-0500 Respiratory rate 20 /min Adam Ball DO Work Phone: [facility] 07-09-2024 08:01-0500 Body temperature 98.1 [degF] Adam Ball DO Work Phone: [facility] 07-09-2024 08:01-0500 Diastolic blood pressure 83 mm[Hg] Adam Ball DO Work Phone: [facility] 07-09-2024 08:01-0500 SaO2% (BldA) [Mass fraction] 96 % Adam Ball DO Work Phone: [facility] 07-09-2024 08:01-0500 Systolic blood pressure 143 mm[Hg] Adam Ball DO Work Phone: [facility] 07-09-2024 05:36-0500 Body weight 65.9 kg Adam Ball DO Work Phone: [facility] 07-07-2024 17:38-0500 Inhaled oxygen flow rate 2 L/min Adam Ball DO Work Phone: [facility] 07-04-2024 15:38-0500 Body height 182.88 cm Adam Ball DO Work Phone: [facility] 07-03-2024 23:10-0500 Diastolic blood pressure 86 mm[Hg] Adam Ball DO Work Phone: [facility] 07-03-2024 23:10-0500 Heart rate 94 /min Adam Ball DO Work Phone: [facility] 07-03-2024 23:10-0500 Respiratory rate 18 /min Adam Ball DO Work Phone: [facility] 07-03-2024 23:10-0500 SaO2% (BldA) [Mass fraction] 97 % Adam Ball DO Work Phone: [facility] 07-03-2024 23:10-0500 Systolic blood pressure 139 mm[Hg] Adam Ball DO Work Phone: [facility] 07-03-2024 21:14-0500 Inhaled oxygen flow rate 2 L/min Adam Ball DO Work Phone: [facility] 07-03-2024 18:33-0500 Body height 182.88 cm Adam Ball DO Work Phone: [facility] 07-03-2024 18:33-0500 Body temperature 97.7 [degF] Adam Ball DO Work Phone: [facility] 07-03-2024 18:33-0500 Body weight 68.03 kg Adam Ball DO Work Phone: [facility] 06-12-2024 13:35-0500 Diastolic blood pressure 76 mm[Hg] [address] 06-12-2024 13:35-0500 Heart rate 92 /min [address] 06-12-2024 13:35-0500 Systolic blood pressure 118 mm[Hg] [address] 06-03-2024 14:43-0500 Body height 182.88 cm Adam Ball DO Work Phone: [facility] 06-03-2024 14:43-0500 Body mass index (BMI) [Ratio] 21.2 kg/m2 Adam Ball DO Work Phone: [facility] 06-03-2024 14:43-0500 Body weight 71.21 kg Adam Ball DO Work Phone: [facility] 06-03-2024 14:43-0500 Diastolic blood pressure 72 mm[Hg] Adam Ball DO Work Phone: [facility] 06-03-2024 14:43-0500 Heart rate 106 /min Adam Ball DO Work Phone: [facility] 06-03-2024 14:43-0500 Respiratory rate 14 /min Adam Ball DO Work Phone: [facility] 06-03-2024 14:43-0500 Systolic blood pressure 105 mm[Hg] Adam Ball DO Work Phone: [facility] 05-24-2024 13:22-0500 Body height 182.9 cm Shannon Gonzalez MD Work Phone: [facility] 05-24-2024 13:22-0500 Body mass index (BMI) [Ratio] 21.18 kg/m2 Shannon Gonzalez MD Work Phone: [facility] 05-24-2024 13:22-0500 Body weight 70.85 kg Shannon Gonzalez MD Work Phone: [facility] 05-24-2024 13:22-0500 Diastolic blood pressure 48 mm[Hg] Shannon Gonzalez MD Work Phone: [facility] 05-24-2024 13:22-0500 Heart rate 68 /min Shannon Gonzalez MD Work Phone: [facility] 05-24-2024 13:22-0500 Systolic blood pressure 90 mm[Hg] Shannon Gonzalez MD Work Phone: [facility] 05-01-2024 11:40-0500 Body height 182.88 cm Adam Ball DO Work Phone: [facility] 05-01-2024 11:40-0500 Body mass index (BMI) [Ratio] 21.7 kg/m2 Adam Ball DO Work Phone: [facility] 05-01-2024 11:40-0500 Body temperature 96.5 [degF] Adam Ball DO Work Phone: [facility] 05-01-2024 11:40-0500 Body weight 72.57 kg Adam Ball DO Work Phone: [facility] 05-01-2024 11:40-0500 Diastolic blood pressure 44 mm[Hg] Adam Ball DO Work Phone: [facility] 05-01-2024 11:40-0500 Heart rate 46 /min Adam Ball DO Work Phone: [facility] 05-01-2024 11:40-0500 SaO2% (BldA) [Mass fraction] 90 % Adam Ball DO Work Phone: [facility] 05-01-2024 11:40-0500 Systolic blood pressure 90 mm[Hg] Adam Ball DO Work Phone: [facility] 03-27-2024 15:22-0500 Body height 182.9 cm Shannon Gonzalez MD Work Phone: [facility] 03-27-2024 15:22-0500 Body mass index (BMI) [Ratio] 20.61 kg/m2 Shannon Gonzalez MD Work Phone: [facility] 03-27-2024 15:22-0500 Body weight 68.95 kg Shannon Gonzalez MD Work Phone: [facility] 03-27-2024 15:22-0500 Diastolic blood pressure 60 mm[Hg] Shannon Gonzalez MD Work Phone: [facility] 03-27-2024 15:22-0500 Heart rate 71 /min Shannon Gonzalez MD Work Phone: [facility] 03-27-2024 15:22-0500 Systolic blood pressure 108 mm[Hg] Shannon Gonzalez MD Work Phone: [facility] 03-25-2024 14:13-0500 Body height 182.88 cm Adam Ball DO Work Phone: [facility] 03-25-2024 14:13-0500 Body mass index (BMI) [Ratio] 20.5 kg/m2 Adam Ball DO Work Phone: [facility] 03-25-2024 14:13-0500 Body weight 68.71 kg Adam Ball DO Work Phone: [facility] 03-25-2024 14:13-0500 Diastolic blood pressure 42 mm[Hg] Adam Ball DO Work Phone: [facility] 03-25-2024 14:13-0500 Heart rate 86 /min Adam Ball DO Work Phone: [facility] 03-25-2024 14:13-0500 SaO2% (BldA) [Mass fraction] 94 % Adam Ball DO Work Phone: [facility] 03-25-2024 14:13-0500 Systolic blood pressure 90 mm[Hg] Adam Ball DO Work Phone: [facility] 03-20-2024 14:50-0500 Body height 182.88 cm DO Adam Ball Work Phone: [facility] 03-20-2024 12:05-0500 Diastolic blood pressure 54 mm[Hg] DO Adam Ball Work Phone: [facility] 03-20-2024 12:05-0500 Systolic blood pressure 87 mm[Hg] DO Adam Ball Work Phone: [facility] 03-20-2024 12:00-0500 Body temperature 97.7 [degF] DO Adam Ball Work Phone: [facility] 03-20-2024 12:00-0500 Heart rate 71 /min DO Adam Ball Work Phone: [facility] 03-20-2024 12:00-0500 Inhaled oxygen flow rate 2 L/min DO Adam Ball Work Phone: [facility] 03-20-2024 12:00-0500 Respiratory rate 18 /min DO Adam Ball Work Phone: [facility] 03-20-2024 12:00-0500 SaO2% (BldA) [Mass fraction] 100 % DO Adam Ball Work Phone: [facility] 03-20-2024 06:00-0500 Body weight 73 kg DO Adam Ball Work Phone: [facility] 03-08-2024 13:27-0400 Body height 182.88 cm DO Adam Ball Work Phone: [facility] 03-08-2024 13:27-0400 Body mass index (BMI) [Ratio] 21.9 kg/m2 DO Adam Ball Work Phone: [facility] 03-08-2024 13:27-0400 Body weight 73.59 kg DO Adam Ball Work Phone: [facility] 03-08-2024 13:27-0400 Diastolic blood pressure 91 mm[Hg] DO Adam Ball Work Phone: [facility] 03-08-2024 13:27-0400 Heart rate 86 /min DO Adam Ball Work Phone: [facility] 03-08-2024 13:27-0400 Respiratory rate 12 /min DO Adam Ball Work Phone: [facility] 03-08-2024 13:27-0400 SaO2% (BldA) [Mass fraction] 92 % DO Adam Ball Work Phone: [facility] 03-08-2024 13:27-0400 Systolic blood pressure 154 mm[Hg] DO Adam Ball Work Phone: [facility] 03-01-2024 15:58-0400 Diastolic blood pressure 66 mm[Hg] DO Adam Ball Work Phone: [facility] 03-01-2024 15:58-0400 Heart rate 70 /min DO Adam Ball Work Phone: [facility] 03-01-2024 15:58-0400 Inhaled oxygen flow rate 2 L/min DO Adam Ball Work Phone: [facility] 03-01-2024 15:58-0400 Respiratory rate 20 /min DO Adam Ball Work Phone: [facility] 03-01-2024 15:58-0400 SaO2% (BldA) [Mass fraction] 98 % DO Adam Ball Work Phone: [facility] 03-01-2024 15:58-0400 Systolic blood pressure 101 mm[Hg] DO Adam Ball Work Phone: [facility] 03-01-2024 15:25-0400 Body height 182.88 cm DO Adam Ball Work Phone: [facility] 03-01-2024 09:11-0400 Body temperature 97.8 [degF] DO Adam Ball Work Phone: [facility] 03-01-2024 05:30-0400 Body weight 73.4 kg DO Adam Ball Work Phone: [facility] 02-28-2024 23:38-0400 Inhaled oxygen flow rate 2 L/min DO Daam Ball Work Phone: [facility] 02-28-2024 23:38-0400 Respiratory rate 22 /min DO Adam Ball Work Phone: [facility] 02-28-2024 23:38-0400 SaO2% (BldA) [Mass fraction] 94 % DO Adam Ball Work Phone: [facility] 02-28-2024 23:36-0400 Diastolic blood pressure 94 mm[Hg] DO Adam Ball Work Phone: [facility] 02-28-2024 23:36-0400 Heart rate 118 /min DO Adam Ball Work Phone: [facility] 02-28-2024 23:36-0400 Systolic blood pressure 169 mm[Hg] DO Adam Ball Work Phone: [facility] 02-28-2024 21:46-0400 Body height 182.88 cm DO Adam Ball Work Phone: [facility] 02-28-2024 21:46-0400 Body temperature 97.3 [degF] DO Adam Ball Work Phone: [facility] 02-28-2024 21:46-0400 Body weight 77.9 kg DO Adam Ball Work Phone: [facility] 02-20-2024 14:22-0400 Body height 182.9 cm [facility] 02-20-2024 14:0400 Body mass index (BMI) [Ratio] 22.92 kg/m2 Olivia Toro [facility] 02-20-2024 14:0400 Body weight 76.66 kg [facility] 02-20-2024 14:22-0400 Diastolic blood pressure 80 mm[Hg] [facility] 14:0400 Heart rate 102 /min [facility] 02-20-2024 14:22-0400 Systolic blood pressure 140 mm[Hg] [facility] 02-14-2024 [id number]:25040 Body height 182.88 cm DO Adam Ball Work Phone: [facility] 02-14-2024 14:25-0400 Body mass index (BMI) [Ratio] 23.1 kg/m2 DO Adam Ball Work Phone: [facility] 02-14-2024 14:250400 Body weight 77.16 kg DO Adam Ball Work Phone: [facility] 02-14-2024 14:25-0400 Diastolic blood pressure 94 mm[Hg] DO Adam Ball Work Phone: [facility] 02-14-2024 14:25-0400 Heart rate 114 /min DO Adam Ball Work Phone: [facility] 02-14-2024 14:25-0400 Respiratory rate 20 /min DO Adam Ball Work Phone: [facility] 02-14-2024 14:25-0400 Systolic blood pressure 155 mm[Hg] DO Adam Ball Work Phone: [facility] 02-04-2024 16:00-0400 Inhaled oxygen flow rate 2 L/min DO Adam Ball Work Phone: [facility] 02-04-2024 13:35-0400 Heart rate 86 /min DO Adam Ball Work Phone: [facility] 02-04-2024 13:35-0400 Respiratory rate 18 /min DO Adam Ball Work Phone: [facility] 02-04-2024 12:40-0400 Body temperature 97.5 [degF] DO Adam Ball Work Phone: [facility] 02-04-2024 12:40-0400 Diastolic blood pressure 78 mm[Hg] DO Adam Ball Work Phone: [facility] 02-04-2024 12:40-0400 SaO2% (BldA) [Mass fraction] 98 % DO Adam Ball Work Phone: [facility] 02-04-2024 12:40-0400 Systolic blood pressure 119 mm[Hg] DO Adam Ball Work Phone: [facility] 02-04-2024 05:54-0400 Body weight 78.3 kg DO Adam Ball Work Phone: [facility] 02-02-2024 09:43-0400 Body height 182.88 cm DO Adam Ball Work Phone: [facility] 10-13-2023 13:35-0400 Body height 182.9 cm Steven Alvares MD Work Phone: [facility] 10-13-2023 13:35-0400 Body mass index (BMI) [Ratio] 23.06 kg/m2 Steven Alvares MD Work Phone: [facility] 10-13-2023 13:35-0400 Body weight 77.11 kg Steven Alvares MD Work Phone: [facility] 10-13-2023 13:35-0400 Diastolic blood pressure 78 mm[Hg] Steven Alvares MD Work Phone: [facility] 10-13-2023 13:35-0400 Heart rate 72 /min Steven Alvares MD Work Phone: [facility] 10-13-2023 13:35-0400 Systolic blood pressure 138 mm[Hg] Steven Alvares MD Work Phone: [facility] 08-14-2023 15:21-0400 Blood Pressure Location Clinton NORMAN [facility] 08-14-2023 15:21-0400 Diastolic blood pressure 74 mm[Hg] Clintonsneha NORMAN [facility] 08-14-2023 15:21-0400 Heart rate 80 /min Clinton NORMAN [facility] 08-14-2023 15:21-0400 Respiratory rate 16 /min Clinton NORMAN [facility] 08-14-2023 15:21-0400 Systolic blood pressure 132 mm[Hg] Clinton NORMAN [facility] 03-01-2023 14:00-0400 Body height 182.88 cm Adam Ball Other [facility] [employer] Other 03-01-2023 14:00-0400 Body mass index (BMI) [Ratio] 23.22 kg/m2 Adam Ball Other [facility] [employer] Other 03-01-2023 14:00-0400 Body weight 77.66 kg Adam Ball Other [facility] [employer] Other 03-01-2023 14:00-0400 Diastolic blood pressure 80 mm[Hg] Adam Ball Other [facility] [employer] Other 03-01-2023 14:00-0400 Respiratory rate 20 /min Adam Ball Other [facility] [employer] Other 03-01-2023 14:00-0400 Systolic blood pressure 145 mm[Hg] Adam Ball Other [facility] [employer] Other 11-28-2022 13:10-0400 Blood Pressure Location Clintonsneha NORMAN [facility] 11-28-2022 13:10-0400 Diastolic blood pressure 80 mm[Hg] Clinton NORMAN [facility] 11-28-2022 13:10-0400 Heart rate 68 /min Clinton NORMAN [facility] 11-28-2022 13:10-0400 Respiratory rate 16 /min Clinton NORMAN [facility] 11-28-2022 13:10-0400 Systolic blood pressure 130 mm[Hg] Clinton NORMAN [facility] 09-01-2022 12:30-0400 Body height 182.88 cm Adam Ball [address] [facility] [employer] Other 09-01-2022 12:30-0400 Body mass index (BMI) [Ratio] 22.97 kg/m2 Adam Ball Other [facility] [employer] Other 09-01-2022 12:30-0400 Body weight 76.84 kg Adam Ball Other [facility] [employer] Other 09-01-2022 12:30-0400 Diastolic blood pressure 87 mm[Hg] Adam Ball Other [facility] [employer] Other 09-01-2022 12:30-0400 Respiratory rate 20 /min Adam Ball Other [facility] Other 09-01-2022 12:30-0400 Systolic blood pressure 147 mm[Hg] Adam Ball Other [facility] [employer] Other 02-14-2022 12:08-0400 Blood Pressure Location Clintonsneha NORMAN [facility] 02-14-2022 12:08-0400 Diastolic blood pressure 89 mm[Hg] Clinton NORMAN [facility] 02-14-2022 12:08-0400 Heart rate 80 /min Clintonsneha NORMAN [facility] 02-14-2022 12:08-0400 Respiratory rate 16 /min Clinton NORMAN [facility] 02-14-2022 12:08-0400 Systolic blood pressure 139 mm[Hg] Clinton NORMAN [facility] 10-26-2021 11:23-0400 Diastolic blood pressure 95 mm[Hg] DO Adam Ball Work Phone: [facility] 10-26-2021 11:23-0400 Heart rate 62 /min DO Adam Ball Work Phone: [facility] 10-26-2021 11:23-0400 Respiratory rate 20 /min DO Adam Ball Work Phone: [facility] 10-26-2021 11:23-0400 SaO2% (BldA) [Mass fraction] 94 % DO Adam Ball Work Phone: [facility] 10-26-2021 11:23-0400 Systolic blood pressure 134 mm[Hg] DO Adam Ball Work Phone: [facility] 10-26-2021 09:24-0400 Body height 182.88 cm DO Adam Ball Work Phone: [facility] 10-26-2021 09:24-0400 Body mass index (BMI) [Ratio] 23.7 kg/m2 DO Adam Ball Work Phone: [facility] 10-26-2021 09:24-0400 Body temperature 97.5 [degF] DO Adam Ball Work Phone: [facility] 10-26-2021 09:24-0400 Body weight 79.37 kg DO Adam Ball Work Phone: [facility] 2021 12:15-0400 Body height 182.88 cm Nick Modino Other [facility] [employer] Other 2021 12:15-0400 Body mass index (BMI) [Ratio] 24.27 kg/m2 Christlibbyer Flavio Other [facility] Other 2021 12:15-0400 Body temperature 97.2 [degF] Christlibbyer Flavio Other [facility] Other 2021 12:15-0400 Body weight 81.19 kg Christlibbyer Flavio Other [facility] Other 2021 12:15-0400 Diastolic blood pressure 88 mm[Hg] Artemioer Flavio Other [facility] Other 2021 12:15-0400 Respiratory rate 20 /min Christopher Flavio Other [facility] Other 2021 12:15-0400 SaO2% (BldA) [Mass fraction] 99 % Christlibbyer Flavio Other [facility] Other 2021 12:15-0400 Systolic blood pressure 150 mm[Hg] Nick Modino Other [facility] Other 08-09-2021 11:58-0400 Blood Pressure Location Clinton NORMAN [facility] 08-09-2021 11:58-0400 Diastolic blood pressure 83 mm[Hg] Clinton NORMAN [facility] 08-09-2021 11:58-0400 Heart rate 64 /min Clinton NORMAN [facility] 08-09-2021 11:58-0400 Respiratory rate 16 /min Clinton NORMAN [facility] 08-09-2021 11:58-0400 Systolic blood pressure 137 mm[Hg] Clinton NORMAN [facility] 04-29-2021 14:51-0500 Body height 182.88 cm Adam Bird [employer] Work Phone: [facility] [employer] 250 DO Work Phone: 04-29-2021 14:51-0500 Body mass index (BMI) [Ratio] 23.87 kg/m2 Adam Bird [employer] Work Phone: [facility] 250 DO Work Phone: 04-29-2021 14:51-0500 Body surface area Derived from formula 2.02 m2 Adam Del Valle Work Phone: [facility] 250 DO Work Phone: 04-29-2021 14:51-0500 Body weight 79.83 kg Adam E Ball Work Phone: [facility] 250 DO Work Phone: 04-29-2021 14:51-0500 Diastolic blood pressure 88 mm[Hg] Adam E Ball Work Phone: [facility] 250 DO Work Phone: 04-29-2021 14:51-0500 Heart rate 77 /min Adam E Ball Work Phone: [facility] 250 DO Work Phone: 04-29-2021 14:51-0500 Systolic blood pressure 138 mm[Hg] Adam E Ball Work Phone: [facility] DO Work Phone: Encounters Encounter Date Encounter Type Care Provider Facility Start: 01-28-2025 End: 01-28-2025 ambulatory NING [facility] Start: 01-28-2025 End: 01-28-2025 Subsequent hospital visit by physician Serenity Turk [address] Comment on above: Cardiac sarcoidosis Start: 01-21-2025 End: 01-21-2025 ambulatory Adam Ball DO Work Phone: [facility] Work Phone: Start: 01-21-2025 End: 01-21-2025 Patient encounter procedure Nick Muniz MD -[facility] Work Phone: Start: 01-17-2025 Non-patient / Non-visit Ning quintero APRN [facility] Work Phone: Start: 01-17-2025 End: 01-17-2025 ambulatory [facility] Amb[facility] Start: 01-17-2025 End: 01-17-2025 Professional / ancillary services management Maya Fuentes [facility] Comment on above: High risk medication use Start: 01-15-2025 End: 01-15-2025 ambulatory NING Ness [facility] Ambulatory Start: 01-15-2025 End: 01-15-2025 Office outpatient visit 25 minutes Ning Ness Soso [employer] CONDITIONING OPERATOR[employer] Work Phone: [facility] Comment on above: High risk medication use (Primary Dx); 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 (Multi); intermediate (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; Takotsubo syndrome; BMI < 18.5; Cardiac sarcoidosis; Chewing tobacco use; Other cardiomyopathy; LV dysfunction Start: 01-10-2025 Non-patient / Non-visit Juliette Fulton TENTERING MACHINE FEEDER -[facility] Work Phone: Start: 01-05-2025 End: 01-09-2025 Evaluation and management of inpatient Elsie Leonard MD -[facility] [place] [facility] Work Phone: Start: 01-02-2025 End: 01-02-2025 Departed Referred Josue Beavers MD -Pre-Surgical Testing Work Phone: Start: 01-02-2025 End: 01-02-2025 Patient encounter procedure Josue Beavers MD -Pre-Surgical Testing Work Phone: Start: 01-02-2025 End: 01-02-2025 ambulatory Adam Ball DO Work Phone: [facility] Work Phone: Start: 11-19-2024 End: 11-19-2024 ambulatory Adam Ball DO Work Phone: [facility] Work Phone: Start: 11-19-2024 End: 11-19-2024 Patient encounter procedure Adam Ball DO -[facility] Work Phone: Start: 11-12-2024 Non-patient / Non-visit Juliette Fulton TENTERING MACHINE FEEDER -[facility] Work Phone: Start: 11-11-2024 End: 11-12-2024 Evaluation and management of inpatient Silvano Reed DO -[facility] [place] [facility] Work Phone: Start: 10-31-2024 End: 10-31-2024 ambulatory [facility] Ambulatory Start: 10-31-2024 End: 10-31-2024 Office outpatient visit 25 minutes Shannon Gonzalez MD Work Phone: [facility] Comment on above: Other fatigue (Prima ry Dx); Non-ischemic cardiomyopathy (Multi); 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 (Multi); High risk medication use; Pulmonary sarcoidosis (Multi); BMI < 18.5; Current smoker Start: 09-02-2024 End: 09-02-2024 ambulatory Adam Del Valle [employer] Work Phone: [facility] Work Phone: Start: 09-02-2024 End: 09-02-2024 Patient encounter procedure Adam Del Valle DO Work Phone: [facility] Work Phone: Start: 08-09-2024 End: 08-09-2024 Subsequent hospital visit by physician Serenity Greene Echo/Vasc Room 2 [facility] Comment on above: Non-ischemic cardiom yopathy (Multi); Cardiomyopathy, unspecified Start: 08-09-2024 End: 08-09-2024 ambulatory [facility] Start: 08-05-2024 End: 08-06-2024 ambulatory Clinton NORMAN Facility:[facility] Start: 08-05-2024 End: 08-06-2024 Lab Drop off Clinton NORMAN [facility] Start: 08-05-2024 End: 08-05-2024 ambulatory Clinton NORMAN Facility: [employer] Start: 08-01-2024 Non-patient / Non-visit Benjvenu in Ivon DO Work Phone: [facility] Work Phone: Start: 07-25-2024 End: 07-25-2024 Professional / ancillary services management Harriet Gibson LPN [facility] Comment on above: Atrial fibrillation, unspecified type (Multi) Start: 07-25-2024 End: 07-25-2024 ambulatory SHANNON Robertson [facility] Ambulatory Start: 07-23-2024 End: 07-24-2024 ambulatory Edward Orr DO Work Phone: [facility] [...] ambulatory Adam Del Valle DO Work Phone: [facility] Work Phone: Start: 07-15-2024 End: 07-15-2024 Patient encounter procedure Adam Del Valle DO Work Phone[facility] Work Phone: Start: 07-10-2024 End: 07-21-2024 [...] and hyponatremia; Hypokalemia; Alcohol dependence, 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[facility]); Benign prostatic hyperplasia with lower urinary tract symptoms, symptom details unspecified; Other spondylosis, lumbar region; Muscle weakness (generalized); Encephalopathy, unspecified type; Occlusion and stenosis of right carotid artery; Gastroesophageal reflux disease without esophagitis; Chronic atrial fibrillation ([facility]) Start: 07-06-2024 Non-patient / Non-visit Shira Del Valle DO Work Phone: [facility] Work Phone: Start: 07-03-2024 End: 07-09-2024 Evaluation and management of inpatient Adam Del Valle DO Work Phone: [facility] [place] [facility] Work Phone: Start: 06-12-2024 End: 06-12-2024 Subsequent hospital visit by physician Serenity Meyers [place] [facility] Comment on above: Fatigue, unspecified type; Non-ischemic cardiomyopathy (Multi); Diastolic dysfunction; LV (left ventricular) mural thrombus; 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 (Multi) Start: 06-12-2024 End: 06-12-2024 ambulatory SHANNON GONZALEZ [facility] Start: 06-03-2024 End: 06-03-2024 ambulatory Adam Del Valle DO Work Phone: [facility] Work Phone: Start: 06-03-2024 End: 06-03-2024 Patient encounter procedure Adam Del Valle DO Work Phone: [facility] Work Phone: Start: 05-24-2024 End: 05-24-2024 Office outpatient visit 25 minutes Shannon Gonzalez MD Work Phone: [facility] Comment on above: Hypotension due to d rugs (Primary Dx); Non-ischemic cardiomyopathy (Multi); Diastolic dysfunction; Fatigue, unspecified type; LV (left ventricular) mural thrombus; 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 (Multi); High risk medication use; Pulmonary sarcoidosis (Multi); BMI 21.0-21.9, adult; Carotid stenosis, right Start: 05-24-2024 End: 05-24-2024 ambulatory [facility] Start: 05-22-2024 Non-patient / Non-visit Benjam in Ball DO Work Phone: [facility] Work Phone: Start: 05-01-2024 End: 05-01-2024 Patient encounter procedure Adam Ball DO Work Phone: [facility] Work Phone: Start: 04-09-2024 Non-patient / Non-visit Benjam in Ball DO Work Phone: [facility] Work Phone: Start: 03-27-2024 End: 03-27-2024 Office outpatient visit 25 minutes Shannon Gonzalez MD Work Phone: [facility] Comment on above: Persistent atrial fi brillation (Multi) (Primary Dx); Non-ischemic cardiomyopathy (Multi); Chronic obstructive pulmonary disease, unspecified COPD type (Multi); BMI 20.0-20.9, adult; High risk medication use; Pulmonary sarcoidosis (Multi); Carotid artery stenosis without cerebral infarction, right; Dyslipidemia Start: 03-27-2024 End: 03-27-2024 ambulatory [facility] Start: 03-26-2024 End: 03-26-2024 ambulatory Adam Ball DO Work Phone: [facility] Work Phone: Start: 03-26-2024 End: 03-26-2024 Patient encounter procedure Adam Ball DO Work Phone: [facility] Work Phone: Start: 03-25-2024 End: 03-25-2024 ambulatory Adam Ball DO Work Phone: [facility] Work Phone: Start: 03-25-2024 End: 03-25-2024 Patient encounter procedure Adam Ball DO Work Phone: [facility] Work Phone: Start: 03-21-2024 Non-patient / Non-visit Benjam in Ball DO Work Phone: [facility] Work Phone: Start: 03-16-2024 Non-patient / Non-visit DO Frandy minda Ball Work Phone: [facility] Work Phone: Start: 03-15-2024 Non-patient / Non-visit DO Frandy minda Ball Work Phone: [facility] Work Phone: Start: 03-14-2024 Non-patient / Non-visit DO Frandy perla Ball Work Phone: [facility] Surgery Work Phone: Start: 03-13-2024 Non-patient / Non-visit Benjam in Ball DO Work Phone: [facility] Work Phone: Start: 03-13-2024 End: 03-20-2024 Evaluation and management of inpatient DO Adam Ball Work Phone: [facility] [place] [facility] Work Phone: Start: 03-13-2024 Non-patient / Non-visit DO Frandy minda Ball Work Phone: [facility] Work Phone: Start: 03-08-2024 End: 03-08-2024 ambulatory DO Adam Ball Work Phone: [facility] Work Phone: Start: 03-08-2024 End: 03-08-2024 Patient encounter procedure DO Adam Ball Work Phone: [facility] Work Phone: Start: 03-07-2024 Non-patient / Non-visit DO Frandy Del Valle Work Phone: [facility] Work Phone: Start: 03-06-2024 Non-patient / Non-visit Benjvenu in Ivon DO Work Phone[facility] Work Phone: Start: 03-06-2024 Non-patient / Non-visit DO Frandy Del Valle Work Phone: [facility] Work Phone: Start: 03-01-2024 Non-patient / Non-visit DO Frandy Del Valle Work Phone: [facility] Work Phone: Start: 02-29-2024 Non-patient / Non-visit DO Frandy Del Valle Work Phone: [facility] Work Phone: Start: 02-28-2024 End: 03-01-2024 Evaluation and management of inpatient DO Adam Del Valle Work Phone: [facility] [place] [facility] Work Phone: Start: 02-20-2024 End: 02-20-2024 Professional / ancillary services management Olivia Toro LPN [facility] Comment on above: Arrived Start: 02-20-2024 End: 02-20-2024 ambulatory [facility] Start: 02-14-2024 End: 02-14-2024 ambulatory DO Adam Del Valle Work Phone: [facility] Work Phone: Start: 02-14-2024 End: 02-14-2024 Patient encounter procedure DO Adam Del Valle Work Phone: [facility] Work Phone: Start: 02-12-2024 Non-patient / Non-visit DO Frandy Del Valle Work Phone: [facility] Work Phone: Start: 02-05-2024 Non-patient / Non-visit DO Frandy Del Valle Work Phone: [facility] Work Phone: Start: 02-02-2024 End: 02-04-2024 Evaluation and management of inpatient DO Adam Del Valle Work Phone: [facility] [place] [facility] Work Phone: Start: 02-02-2024 Non-patient / Non-visit DO Frandy Del Valle Work Phone: [facility] Work Phone: Start: 02-01-2024 Non-patient / Non-visit DO Frandy Del Valle Work Phone: [facility] Work Phone: Start: 10-13-2023 End: 10-13-2023 Office outpatient visit 25 minutes Steven Alvares MD Work Phone: [facility] Comment on above: Non-ischemic cardiom yopathy (Multi) (Primary Dx); LV (left ventricular) mural thrombus; Diastolic dysfunction; Pulmonary sarcoidosis (Multi); Imbalance; BMI 23.0-23.9, adult Start: 08-14-2023 End: 08-14-2023 ambulatory Clinton NORMAN Facility:[facility] Start: 08-14-2023 End: 08-14-2023 Patient encounter procedure Clinton NORMAN [facility] Start: 05-04-2023 End: 05-04-2023 ambulatory Adam Del Valle Other [facility] [employer] Other Start: 05-04-2023 Telephone encounter Adam Ball [facility] Start: 03-01-2023 End: 03-01-2023 ambulatory Adam Del Valle Other [facility] Other Start: 03-01-2023 Office outpatient vi sit 25 minutes Adam Del Valle [facility] Start: 12-19-2022 Rx Renewal Adam Bird Bal l [facility] Work Phone: Start: 12-04-2022 End: 12-04-2022 ambulatory Nick Muniz Other [facility] Other Start: 12-04-2022 Telephone encounter Nick vance [facility] Start: 11-28-2022 End: 11-28-2022 Patient encounter procedure Clinton NORMAN [facility] Start: 09-27-2022 End: 09-27-2022 ambulatory Adam Del Valle Other [facility] Other Start: 09-27-2022 Telephone encounter Adam Del Valle [facility] Start: 09-16-2022 Rx Renewal Adam Bird Bal l Work Phone: [facility] [employer] 250 DO Work Phone: Start: 09-08-2022 Encounter for genera l adult medical examination without abnormal findings DR ADAM DEL VALLE [facility] Start: 09-02-2022 End: 09-03-[address] ADAM DEL VALLE Facility:[facility] Start: 09-02-2022 End: 09-03-2022 Encounter for general adult medical examination without abnormal findings DR ADAM DEL VLALE Facility:[facility] Start: 09-01-2022 End: 09-01-2022 ambulatory Adam Del Valle Other [facility] Other Start: 09-01-2022 Patient encounter procedure Adam Del Valle [facility] Start: 08-26-2022 Rx Renewal Adam galvan Work Phone: [facility] 250 DO Work Phone: Start: 08-16-2022 End: 08-16-2022 ambulatory Nick Flavio Other [facility] [employer] Other Start: 08-16-2022 Telephone encounter Nick vance [facility] Start: 05-16-2022 End: 05-16-[address] GREGG QUIROS Facility:[facility] Start: 04-22-2022 Adult health examination Nick Flavio Other [facility] [employer] Other Start: 04-19-2022 End: 04-19-[address] JOSE ALFARO . Facility:[facility] Start: 02-14-2022 End: 02-14-2022 Patient encounter procedure Clinton NORMAN [facility] Start: 02-07-2022 End: 02-08-[address] ADAM DEL VALLE Facility:[facility] Start: 12-13-2021 End: 12-14-[address] ADAM DEL VALLE Facility:[facility] Start: 11-30-2021 End: 12-01-[address] ADAM EDL VALLE Facility:[facility] Start: 11-16-2021 End: 11-17-2021 ambulatory MATTHEW MENDEZ Facility:[facility] Start: 11-15-2021 End: 11-15-[address] JOSE ALFARO . Facility:[facility] Start: 10-26-2021 End: 10-26-2021 Admission to same day surgery center DO Adam Del Valle Work Phone: [facility] Start: 10-22-2021 End: 10-22-2021 Patient encounter procedure DO Adam Del Valle Work Phone: [facility] Start: 10-07-2021 Rx Renewal Adam galvan Work Phone: [facility] 250 DO Work Phone: Start: 10-07-2021 End: 10-07-2021 ambulatory Gregg Hilliard Other [facility] Other Start: 10-07-2021 Telephone encounter Gregg Hilliard [facility] Start: 10-05-2021 End: 10-05-2021 ambulatory Nick Modino Other [facility] [employer] Other Start: 10-05-2021 Telephone encounter Nick solitarioo [facility] Start: 2021 End: 2021 ambulatory Christbrendan Palaciodano Other [facility] [employer] Other Start: 2021 Office outpatient vi sit 15 minutes Rustybrendan Modino [facility] Start: 2021 AUDIT dAam galvan Work Phone: [facility] [employer] 250 DO Work Phone: Start: 08-09-2021 End: 08-09-2021 Patient encounter procedure Clinton NORMAN [facility] Start: 04-29-2021 Office outpatient vi sit 25 minutes Adam Del Valle Work Phone: [facility] [employer] 250 DO Work Phone: Evaluation finding Aadm brooks Work Phone: [facility] [employer] 250 DO Work Phone: Procedures Date Procedure [...] Start: 07-03-2024 CT angiography of thorax Adam Rodriguez O Work Phone: Start: 07-03-2024 Duplex scan of [...] Bacteria identified in Urine by Culture DO Adam Del Valle Work Phone: Start: 03-14-2024 Urine culture Adam Del Valle DO Work Phone: Start: 03-14-2024 Doppler ultrasonography of bilateral carotid arteries DO Adam Del Valle Work Phone: Start: 03-14-2024 MRI of head DO Adam Del Valle Work Phone: Start: 03-13-2024 CT of abdomen and pelvis without contrast DO Adam Del Valle Work Phone: Start: 02-29-2024 Plain chest X-ray DO Adam Del Valle Work Phone: Start: 02-28-2024 Plain chest X-ray DO Adam Del Valle Work Phone: Start: 09-02-[address] ADAM DEL VALLE Comment on above: Performed By: #### URIC, BMP, TSH #### [facility] [address] [address] [address] Fabrizio Pascual Start: 02-07-[address] ADAM DEL VALLE Comment on above: Performed By: #### BNP, BMP, HSTROPN ### # [facility] [address] [address] [address] Fabrizio Pascual Start: 10-26-2021 Esophagogastroduodenoscopy DO Adam merino Work Phone: Start: 09-22-2020 Urodynamic studies Clinton NORMAN Start: 08-24-2020 Cystoscopy Clinton NORMAN Start: 06-28-2017 Screening for osteoporosis Nick Muniz Other Start: 06-24-2016 Screening for malignant neoplasm of prostate Nick Muniz Other Arthroscopy of knee Adam Del Valle Work Phone: Colonoscopy Clintonsneha NORMAN Hemorrhoidectomy Clinton HAYES Total colonoscopy Adam Del Valle Work Phone: Plan of Treatment Date Care Activity Detail Author Start: 08-12-2025 Pneumococcal vaccination Pneumococcal Vaccine (3 of 3 - PCV20 or PCV21) [facility] Start: 08-09-2025 Echocardiography Echocardiogram [facility] Start: 06-11-2025 End: 06-11-2025 Patient encounter procedure 06/11/2025 11:00 AM EST Office Visit [facility] [address] [facility] [facility] [address] [place] [address] Shannon Gonzalez MD [address] [place], [place] [id number] [facility] Start: 02-28-2025 Echocardiography Echocardiogram [facility] Start: 02-18-2025 End: 02-18-2025 Patient encounter procedure 02/18/2025 10:45 AM EDT Appointment [facility] [address] [facility] [address] [place] [address] [facility] Start: 02-14-2025 End: 01-15-2027 Heart Transthoracic Transthoracic Echo Limited Echocardiography Routine Takotsubo syndrome Expected: 02/14/2025 (Approximate), Expires: 01/15/2027 [facility] Service Area Work Phone: Comment on above: Expected: 02/14/2025 (Approximate), Expi res: 01/15/2027 Start: 02-10-2025 ambulatory Ambulatory Facility:[facility] Start: 02-03-2025 ambulatory Ambulatory Facility:[facility] Start: 02-01-2025 Echocardiography Echocardiogram [facility] Start: 01-28-2025 End: 01-28-2025 Patient encounter procedure 01/28/2025 11:00 AM EDT Appointment [facility] [address] [facility] [address] [place] [address] [facility] Start: 01-28-2025 Subsequent hospital visit by physician 01/28/2025 11:00 AM EDT Hospital Encounter [facility] [address] [facility] [address] [place] [address] [facility] Start: 01-21-2025 End: 01-21-2025 Professional / ancillary services management 01/21/2025 10:00 AM EDT Ancillary Procedure [facility] [address] [place] [address] [facility] Start: 01-17-2025 End: 01-16-2026 ECG 12 Lead [facility] Work Phone: Comment on above: Expected: 01/17/2025 (Approximate), Expi res: 01/16/2026 Start: 01-17-2025 End: 01-17-2025 Professional / ancillary services management 01/17/2025 11:00 AM EDT Ancillary Procedure [facility] [address] [place] [address] [facility] Start: 01-16-2025 End: 01-16-2026 MR Heart WO and W contrast IV MR cardiac morphology and function w and wo IV contrast Imaging Routine Cardiac sarcoidosis Expected: 01/16/2025 (Approximate), Expires: 01/16/2026 [facility] Work Phone: Comment on above: Expected: 01/16/2025 (Approximate), Expi res: 01/16/2026 Start: 01-15-2025 End: 01-15-2026 Basic metabolic 2000 panel - Serum or Plasma Basic Metabolic Panel Lab Routine 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 (Multi) Takotsubo syndrome Expected: 01/15/2025 (Approximate), Expires: 01/15/2026 [facility] Work Phone: Comment on above: Expected: 01/15/2025 (Approximate), Expi res: 01/15/2026 Start: 01-15-2025 End: 01-15-2026 CBC panel - Blood by Automated count CBC Lab Routine 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 (Multi) intermediate (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 Takotsubo syndrome Expected: 01/15/2025 (Approximate), Expires: 01/15/2026 [facility] Work Phone: Comment on above: Expected: 01/15/2025 (Approximate), Expi res: 01/15/2026 Start: 01-15-2025 End: 01-15-2027 Holter monitor study Holter Or Event [employer] Routine 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 (Multi) Takotsubo syndrome Cardiac sarcoidosis Expected: 01/15/2025 (Approximate), Expires: 01/15/2027 [facility] Work Phone: Comment on above: Expected: 01/15/2025 (Approximate), Expi res: 01/15/2027 Start: 01-15-2025 End: 01-15-2026 Magnesium [Mass/volume] in Serum or Plasma Magnesium Lab Routine 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 (Multi) 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 (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 Takotsubo syndrome Expected: 01/15/2025 (Approximate), Expires: 01/15/2026 [facility] Work Phone: Comment on above: Expected: 01/15/2025 (Approximate), Expi res: 01/15/2026 Start: 01-15-2025 End: 01-15-2026 Natriuretic peptide B [Mass/volume] in Blood B-Type Natriuretic Peptide Lab Routine 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 (Multi) intermediate (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 Takotsubo syndrome Other cardiomyopathy Expected: 01/15/2025 (Approximate), Expires: 01/15/2026 [facility] Work Phone: Comment on above: Expected: 01/15/2025 (Approximate), Expi res: 01/15/2026 Start: 01-13-2025 COVID-19 Vaccine ( season) COVID-19 Vaccine ( season) [facility] Start: 01-13-2025 Influenza vaccination Influenza Vaccine (#1) [facility] Start: 01-09-2025 [facility] Start: 01-05-2025 End: 01-05-2025 [facility] Start: 01-05-2025 Microbial culture of sputum [facility] Start: 01-05-2025 Physical therapy procedure [facility] Start: 01-05-2025 Referral to occupational therapist [facility] Start: 01-05-2025 Referral to wool presser [facility] Start: 01-05-2025 Hospital admission [facility] Start: 01-05-2025 CT angiography of thorax CT angio chest PE protocol [facility] Start: 01-05-2025 CT Chest [facility] Start: 01-04-2025 Plain chest X-ray XR chest 1V portable [facility] Start: 01-04-2025 XR Chest Single view [facility] Start: 11-14-2024 [facility] Start: 11-13-2024 [facility] Start: 11-12-2024 End: 11-12-2024 [facility] Start: 11-11-2024 Hospital admission [facility] Start: 11-11-2024 Microbial culture of sputum [facility] Start: 11-11-2024 Physical therapy procedure [facility] Start: 11-11-2024 Referral to occupational therapist [facility] Start: 11-11-2024 [facility] Start: 11-10-2024 Plain chest X-ray XR chest 1V portable [facility] Start: 11-10-2024 XR Chest Single view [facility] Start: 11-10-2024 End: 11-10-2024 Urine culture [facility] Start: 11-10-2024 Bacteria identified in Urine by Culture Urine Culture [facility] Start: 10-31-2024 End: 10-31-2025 Basic metabolic 2000 panel - Serum or Plasma Basic Metabolic Panel Lab Routine Non-ischemic cardiomyopathy (Multi) 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 (Multi) Expected: 10/31/2024 (Approximate), Expires: 10/31/2025 [facility] Work Phone: Comment on above: Expected: 10/31/2024 (Approximate), Expi res: 10/31/2025 Start: 10-31-2024 End: 10-31-2025 CBC panel - Blood by Automated count CBC Lab Routine Non-ischemic cardiomyopathy (Multi) 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 (Multi) Expected: 10/31/2024 (Approximate), Expires: 10/31/2025 [facility] Service Area Work Phone: Comment on above: Expected: 10/31/2024 (Approximate), Expi res: 10/31/2025 Start: 10-18-2024 End: 10-18-2024 Patient encounter procedure 10/18/2024 1:30 PM EDT Office Visit [place] [address] [place] [address] Shannon Gonzalez MD [address] [place] [address] [facility] Start: 09-13-2024 End: 09-13-2024 Patient encounter procedure 09/13/2024 2:10 PM EDT Office Visit [place] [address] [place] [address] Shannon Gonzalez MD [address] [place] [address] [facility] Start: 09-11-2024 Medicare Annual Wellness Visit Medicare Annual Wellness Visit (AWV) [facility] Start: 08-09-2024 End: 08-09-2024 Patient encounter procedure 08/09/2024 12:30 PM EDT Appointment [place] [id number] [place] [phone] [facility] Start: 07-25-2024 End: 03-27-2026 Heart Transthoracic Transthoracic Echo Complete Echocardiography Routine Non-ischemic cardiomyopathy (Multi) Expected: 07/25/2024 (Approximate), Expires: 03/27/2026 [facility] Service Area Work Phone: Comment on above: Expected: 07/25/2024 (Approximate), Expi res: 03/27/2026 Start: 07-25-2024 End: 07-25-2024 Patient encounter procedure 07/25/2024 12:30 PM EDT Appointment [facility] [address] [place] [phone] [facility] Start: 07-09-2024 [facility] Start: 07-04-2024 Administration of prophylactic treatment [facility] Start: 07-04-2024 Patient referral to dietitian [facility] Start: 07-04-2024 Referral to wool presser [facility] Start: 07-04-2024 End: 07-04-2024 [facility] Start: 07-03-2024 Physical therapy procedure [facility] Start: 07-03-2024 Referral to occupational therapist [facility] Start: 07-03-2024 [facility] Start: 07-03-2024 Hospital admission [facility] Start: 07-03-2024 Duplex scan of lower limb veins US venous duplex LE BI [facility] Start: 07-03-2024 US Lower extremity vein - bilateral [facility] Start: 07-03-2024 [facility] Start: 07-03-2024 [facility] Start: 07-03-2024 Drainage of Bladder with Drainage Device, Via Natural or Artificial Opening Drainage of Bladder with Drainage Device, Via Natural or Artificial Opening [facility] Start: 06-12-2024 End: 06-12-2024 Patient encounter procedure 06/12/2024 2:15 PM EST Appointment [place] [id number] [facility] [address] [place] [phone] [facility] Start: 06-12-2024 End: 06-12-2024 Patient encounter procedure [facility] Start: 05-24-2024 End: 05-24-2026 NM Heart Perfusion W stress and W radionuclide IV Nuclear Stress Test Cardiac Nuclear Medicine Routine Fatigue, unspecified type Non-ischemic cardiomyopathy (Multi) Diastolic dysfunction LV (left ventricular) mural thrombus 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 (Multi) Expected: 05/24/2024 (Approximate), Expires: 05/24/2026 [facility] Service Area Work Phone: Comment on above: Expected: 05/24/2024 (Approximate), Expi res: 05/24/2026 Start: 04-15-2024 End: 04-15-2024 Patient encounter procedure 04/15/2024 1:20 PM EST Office Visit [facility] [address] [place] [address] Shannon Gonzalez MD [address] [facility] [address] [place] [address] [facility] Start: 03-27-2024 End: 03-27-2025 Basic metabolic 2000 panel - Serum or Plasma Basic Metabolic Panel Lab Routine Non-ischemic cardiomyopathy (Multi) Expected: 03/27/2024 (Approximate), Expires: 03/27/2025 [facility] Work Phone: Comment on above: Expected: 03/27/2024 (Approximate), Expi res: 03/27/2025 Start: 03-20-2024 [facility] Start: 03-14-2024 Referral to rehabilitation physician [facility] Start: 03-13-2024 Referral to neurologist [facility] Start: 03-13-2024 Referral to vascular surgeon [facility] Start: 03-13-2024 Referral to Farm Agent [facility] Start: 03-13-2024 Sleep disorder assessment [place] Start: 03-13-2024 Hospital admission [facility] Start: 03-01-2024 [facility] Start: 02-29-2024 End: 02-29-2024 Patient encounter procedure 02/29/2024 11:40 AM EDT Office Visit [facility] [address] [place] [address] Shannon Gonzalez MD [address] [place] [address] [facility] Start: 02-28-2024 Hospital admission [facility] Start: 02-28-2024 Plain chest X-ray XR chest 1V portable [facility] Start: 02-28-2024 [facility], Single [facility], Single [facility] Start: 02-04-2024 [facility] Start: 02-02-2024 [facility] Start: 02-02-2024 Hospital admission [facility] Start: 02-02-2024 Referral to wool presser [facility] Start: 01-14-2024 COVID-19 Vaccine ( season) COVID-19 Vaccine ( season) [facility] Start: 01-14-2024 COVID-19 Vaccine () COVID-19 Vaccine ( season) [facility] Start: 01-14-2024 COVID-19 Vaccine () COVID-19 Vaccine () [facility] Start: 01-14-2024 COVID-19 Vaccine () COVID-19 Vaccine () [facility] Start: 01-14-2024 Influenza vaccination [facility] Start: 09-27-2023 FUV, Provider: Steven Alvares, Status: Pen, Time: 1:40 PM FUV, Provider: Steven Alvares, Status: Pen, Time: 1:40 PM -[facility] 250 DO Work Phone: Start: 01-13-2023 COVID-19 Vaccine ( season) COVID-19 Vaccine () [facility] Start: 10-03-2022 FUV, Provider: Steven Alvares, Status: Pen, Time: 11:20 AM FUV, Provider: Steven Alvares, Status: Pen, Time: 11:20 AM [facility] 250 DO Work Phone: Start: 04-27-2022 FUV, Provider: Steven Alvares, Status: Pen, Time: 1:40 PM FUV, Provider: Steven Alvares, Status: Pen, Time: 1:40 PM [facility] 250 DO Work Phone: Start: 08-12-2021 Pneumococcal Vaccine: 65+ Years (3 of 3 - PPSV23 or PCV20) Pneumococcal Vaccine: 65+ Years (3 of 3 - PPSV23 or PCV20) [facility] Start: 08-19-2019 Fall Risk Screening Fall Risk Screening [facility] Start: 02-22-2017 DTaP/Tdap/Td Vaccines (1 - Tdap) DTaP/Tdap/Td Vaccines (1 - Tdap) [facility] Start: 2014 RSV High Risk: (Elderly (60+) or Population) (1 - Risk 60-74 years 1-dose series) RSV High Risk: (Elderly (60+) or Population) (1 - Risk 60-74 years 1-dose series) [facility] Start: 2014 RSV patients and/or patients aged 60+ years (1 - 1-dose 60+ series) RSV patients and/or patients aged 60+ years (1 - 1-dose 60+ series) [facility] Start: 2004 Administration of varicella zoster vaccine Zoster (Shingles) Vaccine (1 of 2) [facility] Start: 2004 Zoster Vaccines (1 of 2) Zoster Vaccines (1 of 2) [facility] Start: 1976 DTaP/Tdap/Td Vaccines (1 - Tdap) DTaP/Tdap/Td Vaccines (1 - Tdap) [facility] Start: 1973 DTaP,Tdap and Td Vaccines (1 - Tdap) DTaP,Tdap and Td Vaccines (1 - Tdap) [facility] Start: 1972 Adult BMI Screening Adult BMI Screening [facility] Start: 1972 Diabetes mellitus screening Diabetes Screening [facility] Start: 1972 Hepatitis C screening Hepatitis C Screening [facility] Start: 1966 Depression Screening Depression Screening [facility] Start: 1966 Tobacco Screening Tobacco Screening [facility] Start: 08-19-1955 MMR Vaccines (1 of 1 - Standard series) MMR Vaccines (1 of 1 - Standard series) [facility] Start: 1954 Annual wellness visit Medicare Initial Physical (IPPE) [facility] Start: 1954 Creatinine measurement Creatinine Level [facility] Start: 1954 Lipid panel Lipid Panel [facility] Start: 1954 Medicare Annual Wellness Visit Medicare Annual Wellness Visit (AWV) [facility] Start: 1954 Potassium measurement Potassium Level [facility] Start: 1954 Screening for malignant neoplasm of colon [facility] Start: 1954 Thyroid stimulating hormone measurement TSH Level [facility] Anion gap measurement [facility] Anion gap measurement [facility] Basophils [#/volume] in Blood by Automated count [facility] Basophils [#/volume] in Blood by Automated count [facility] Basophils/100 leukoc ytes in Blood by Automated count [facility] Basophils/100 leukoc ytes in Blood by Automated count [facility] Comprehensive metabo lic 2000 panel - Serum or Plasma [facility] ECG 12 Lead ECG 12 Lead ECG Routine Atrial fibrillation, unspecified type (Multi) 02/20/2024 1:44 PM EDT [facility] Service Area Work Phone: ECG 12 Lead ECG 12 Lead ECG Routine Atrial fibrillation, unspecified type (Multi) 07/25/2024 9:48 AM EDT [facility] Service [facility] Work Phone: ECG 12 Lead ECG 12 Lead ECG Routine High risk medication use 01/15/2025 8:35 AM EDT [facility] Work Phone: Eosinophils/100 leukocytes in Blood by Automated count [facility] Eosinophils/100 leukocytes in Blood by Automated count [facility] Erythrocyte distribu tion width [Ratio] by Automated count [facility] Erythrocyte distribu tion width [Ratio] by Automated count [facility] Erythrocytes [#/volu me] in Blood [facility] Erythrocytes [#/volu me] in Blood [facility] Glomerular filtratio n rate [Volume Rate/Area] in Serum, Plasma or Blood by Creatinine [facility] Hematocrit [Volume Fraction] of Blood [facility] Hematocrit [Volume Fraction] of Blood [facility] Hemoglobin [Mass/vol ume] in Blood [facility] Hemoglobin [Mass/vol ume] in Blood [facility] Leukocytes [#/volume ] corrected for nucleated erythrocytes in Blood by Automated coun [facility] Leukocytes [#/volume ] corrected for nucleated erythrocytes in Blood by Automated coun [facility] Leukocytes [#/volume ] in Blood [facility] Leukocytes [#/volume ] in Blood [facility] Lymphocytes [#/volum e] in Blood by Automated count [facility] Lymphocytes [#/volum e] in Blood by Automated count [facility] Lymphocytes/100 leukocytes in Blood by Automated count [facility] Lymphocytes/100 leukocytes in Blood by Automated count [facility] MCH [Entitic mass] b y Automated count [facility] MCH [Entitic mass] b y Automated count [facility] MCHC [Mass/volume] b y Automated count [facility] MCHC [Mass/volume] b y Automated count [facility] MCV [Entitic volume] by Automated count [facility] MCV [Entitic volume] by Automated count [facility] Monocytes [#/volume] in Blood by Automated count [facility] Monocytes [#/volume] in Blood by Automated count [facility] Monocytes/100 leukoc ytes in Blood by Automated count [facility] Monocytes/100 leukoc ytes in Blood by Automated count [facility] End: 01-28-2025 MR Heart WO and W contrast IV [facility] Service Area Work Phone: Comment on above: Once for 1 Occurrences starting 01/29/20 until 01/28/2025 Neutrophils [#/volum e] in Blood by Automated count [facility] Neutrophils [#/volum e] in Blood by Automated count [facility] Neutrophils/100 leukocytes in Blood by Automated count [facility] Neutrophils/100 leukocytes in Blood by Automated count [facility] Nucleated erythrocyt es [Presence] in Blood by Automated count [facility] Nucleated erythrocyt es [Presence] in Blood by Automated count [facility] Patient Education [facility] Work Phone: Patient referral [facility] Work Phone: Platelet mean volume [Entitic volume] in Blood by Automated count [facility] Platelet mean volume [Entitic volume] in Blood by Automated count [facility] Platelets [#/volume] in Blood [facility] Platelets [#/volume] in Blood [facility] Immunizations Immunization Date Immunization Notes Care Provider Yoli lemus 07-16-2024 RSV, 60 Years And Older (AREXVY) Shannon Gonzalez MD Work Phone: [facility] Work Phone: 03-25-2024 influenza, high dose seasonal, preservative-free Adam Ball DO Work Phone: [facility] 02-13-2024 Flu vaccine, quadrivalent, high-dose, preservative free, age 65y+ (FLUZONE) Shannon Gonzalez MD Work Phone: [facility] 02-13-2024 influenza virus vaccine, unspecified formulation Ning MISHRA Work Phone: [facility] Work Phone: 03-01-2023 influenza, high dose seasonal, preservative-free Adam Ball Other [facility] Other 03-01-2023 influenza virus vaccine, unspecified formulation DO Adam Del Valle Work Phone: [facility] 03-02-2022 Fluad Quadrivalent 0 .5 ML Intramuscular Prefilled Syringe Adam Bird Ball Work Phone: [facility] 250 DO Work Phone: 03-02-2022 influenza virus vaccine, split virus (incl. purified surface antigen) Nick Muniz Other [facility] Other 03-02-2022 influenza virus vaccine, unspecified formulation Clinton NORMAN [facility] 03-02-2022 influenza, seasonal, injectable Steven Alvares MD Work Phone: [facility] Work Phone: 03-02-2022 influenza, high dose seasonal, preservative-free Adam Ball Other [facility] [employer] Other 03-26-2021 Fluzone High-Dose Quadrivalent 0.7 ML Intramuscular Suspension Prefilled Syringe Adam Del Valle Work Phone: [facility] 250 DO Work Phone: 03-26-2021 influenza virus vaccine, unspecified formulation Clinton NORMAN [facility] 03-26-2021 influenza, high dose seasonal, preservative-free Steven Alvares MD Work Phone: [facility] Work Phone: 03-26-2021 Pfizer-BioNTech COVID-19 Vacc 30 MCG/0.3ML Intramuscular Suspension Adam Del Valle Work Phone: [facility] 02-12-2021 influenza virus vaccine, unspecified formulation Clinton NORMAN [facility] 09-14-2020 SARS-CoV-2 (COVID-19 ) mRNA [id number] vax Clinton NORMAN [facility] 08-12-2020 Pfizer-BioNTech COVID-19 Vacc 30 MCG/0.3ML Intramuscular Suspension Adam Del Valle Work Phone: [facility] 08-12-2020 pneumococcal conjuga te vaccine, 13 valent Steven Alvares MD Work Phone: [facility] Work Phone: 07-22-2020 Pfizer-BioNTech COVID-19 Vacc 30 MCG/0.3ML Intramuscular Suspension Adam Del Valle Work Phone: [facility] Comment on above: Result Comment: 2023: [id number] 02-17-2020 influenza virus vaccine, unspecified formulation Clinton NORMAN [facility] 02-17-2020 influenza, high dose seasonal, preservative-free Adam E Ball Work Phone: [place] [address] DO Work Phone: 02-13-2020 influenza virus vaccine, unspecified formulation Clinton NORMAN [facility] 02-03-2020 influenza virus vaccine, split virus (incl. purified surface antigen) Nick Muniz Other [facility] [employer] Other 02-03-2020 influenza virus vaccine, unspecified formulation DO Adam Ball Work Phone: [facility] 01-14-2020 influenza virus vaccine, unspecified formulation Clinton Mofibo [facility] 01-14-2020 influenza, high dose seasonal, preservative-free Adam E Ball Work Phone: [place] [address] DO Work Phone: 02-19-2019 influenza virus vaccine, split virus (incl. purified surface antigen) Nick Muniz Other [facility] [employer] Other 02-19-2019 influenza virus vaccine, unspecified formulation DO Adam legalPAD Work Phone: [facility] 02-21-2017 influenza virus vaccine, unspecified formulation Clinton Mofibo [facility] 02-21-2017 influenza, seasonal, injectable Adam E Ball Work Phone: [facility] 250 DO Work Phone: 02-21-2017 tetanus and diphther ia toxoids, adsorbed, preservative free, for adult use (5 Lf of tetanus toxoid and 2 Lf of diphtheria toxoid) Nick Muniz Other [facility] 06-29-2016 pneumococcal polysaccharide vaccine, 23 valent Adam Del Valle Work Phone: [facility] 06-24-2016 pneumococcal conjuga te vaccine, 13 valent Adam Del Valle Work Phone: [facility] 06-24-2016 pneumococcal Conjugate, unspecified formulation; Translations: [Need for prophylactic vaccination against Streptococcus pneumoniae (pneumococcus)] Nick Muniz Other [facility] Other 04-19-2016 influenza, seasonal, injectable Ning Godoy STEAM CONDITIONING OPERATOR-[employer] SALESPERSON Work Phone: [facility] Work Phone: 03-30-2016 influenza virus vaccine, split virus (incl. purified surface antigen) Nick Muniz Other [facility] Other 03-30-2016 influenza virus vaccine, unspecified formulation DO Adam Del Valle Work Phone: [facility] 06-16-2010 pneumococcal polysaccharide vaccine, 23 valent Nick Muniz Other [facility] 11-19-2003 tetanus toxoid, adsorbed Adam Del Valle Work Phone: [facility] 250 DO Work Phone: Payers Date Payer Category Payer Private Health Insurance [id number] 2024 Private Health Insurance [id number] 2024 Self-pay [id number] 2023 Medicare [id number] [id number] 2023 Medicare (Managed Care) 1.2. [id number] 2023 Private Health Insurance [facility] [id number] 1959 Medicare [id number] 1954 Unknown [id number] 2.16.840.1.917968.3.579.2.593 1954 Unknown [id number] 2.16.840.1.675775.3.579.2.593 1954 Unknown [id number] 2.16.840.1.907932.3.579.2.593 1954 Unknown [id number] 2.16.840.1.249162.3.579.2.593 1954 Unknown [id number] 2.16.840.1.257984.3.579.2.593 1954 Unknown [id number] 2.16.840.1.522875.3.579.2.593 1954 Unknown [id number] 2.16.840.1.482986.3.579.2.593 1954 Unknown [id number] 2.16.840.1.636937.3.579.2.593 1954 Unknown [id number] 2.16.840.1.117817.3.579.2.727 1954 Unknown [id number] 2.16.840.1.325032.3.579.2.727 1954 Unknown [id number] 2.16.840.1.278241.3.579.2.727 1954 Unknown [id number] 2.16.840.1.433846.3.579.2.727 1954 Unknown [id number] 2.16.840.1.771533.3.579.2.727 1954 Unknown [id number] 2.16.840.1.186903.3.579.2.124 4 1954 Unknown [id number] 2.16.840.1.856155.3.579.2.124 4 1954 Unknown [id number] 2.16.840.1.052156.3.579.2.124 4 1954 Unknown [id number] 2.16.840.1.151630.3.579.2.124 4 1954 Unknown [id number] 2.16.840.1.355742.3.579.2.124 4 1954 Unknown [id number] 2.16.840.1.176168.3.579.2.124 4 1954 Unknown [id number] 2.16.840.1.016867.3.579.2.124 4 1954 Unknown [id number] 2.16.840.1.386137.3.579.2.124 4 1954 Unknown [id number] 2.16.840.1.230897.3.579.2.124 6 1954 Unknown [id number] 2.16.840.1.057514.3.579.2.124 6 1954 Unknown [id number] 2.16.840.1.067536.3.579.2.124 6 1954 Unknown [id number] 2.16.840.1.284746.3.579.2.124 6 1954 Unknown [id number] 2.16.840.1.408756.3.579.2.124 6 1954 Unknown [id number] 2.16.840.1.661485.3.579.2.124 6 1954 Unknown [id number] 2.16.840.1.657045.3.579.2.124 6 Unknown MEDICARE Unknown HCAP/HFA/FAP Active [id number] Unknown [id number] 2.16.840.1.753734.3.579.2.531 Unknown [id number] 2.16.840.1.278289.3.579.2.531 Unknown [id number] 2.16.840.1.102908.3.579.2.531 Unknown [id number] 2.16.840.1.359801.3.579.2.531 Unknown [id number] 2.16.840.1.978401.3.579.2.531 Unknown [id number] 2.16.840.1.236318.3.579.2.531 Unknown [id number] 2.16.840.1.717924.3.579.2.531 Unknown [id number] 2.16.840.1.545479.3.579.2.531 Social History Date Type Detail Facility Start: 07-26-2023 End: 01-15-2025 Caffeine use Caffeine use [facility] 250 DO Work Phone: Comment on above: 1-2 servings; Start: 04-05-2021 End: 07-26-2023 Tobacco smoking status Never smoked tobacco (finding) [facility] Start: 07-26-2023 End: 01-15-2025 Sex Assigned At Male [facility] Start: 1955 Sex Assigned At Male [facility] Start: 04-08-2022 Tobacco smoking status Never [facility] Start: 07-26-2023 Tobacco use and exposure User of smokeless tobacco [facility] Work Phone: History of tobacco use Chews Tobacco [facility] Work Phone: Start: 10-13-2023 End: 02-20-2024 Alcoholic beverage intake Current drinker of alcohol (finding) [facility] Work Phone: Start: 1955 Sex assigned at Not on file [facility] Work Phone: Start: 10-03-2023 End: 08-09-2024 Exposure to SARS-CoV-2 (event) Not sure [facility] Start: 03-27-2024 End: 07-25-2024 Alcoholic beverage intake Ex-drinker (finding) [facility] Work Phone: Start: 03-25-2024 End: 09-02-2024 Sex Male (finding) [facility] Tobacco smoking stat us NHIS Tobacco smoking consumption unknown [facility] Sexual Orientation [facility] Start: 10-31-2024 End: 01-17-2025 Alcoholic beverage intake Lifetime non-drinker (finding) [facility] Work Phone: Start: 11-11-2024 End: 11-11-2024 Tobacco smoking status NHIS Ex-smoker (finding) [facility] Start: 11-11-2024 End: 01-06-2025 SDOH Follow up SDOH Follow up [facility] Work Phone: Start: 01-02-2025 End: 01-05-2025 Tobacco smoking status NHIS Smokes tobacco daily (finding) [facility] Goals Date Patient Goal Desired Activity /State Functional Status Date Assessment Result Facility 01-09-2025 Functional status Patient is Pro gressing Toward Baseline [facility] Work Phone: 11-12-2024 Functional status Patient at Baseline [facility] Work Phone: 07-09-2024 Functional status Patient at Baseline [facility] Work Phone: 03-20-2024 Functional status Patient at Baseline [facility] Work Phone: 03-01-2024 Functional status Patient at Baseline [facility] Work Phone: 02-04-2024 Functional status Patient at Baseline [facility] Work Phone: 08-14-2023 Functional Status N/A [facility] 11-28-2022 Functional Status N/A [facility] 02-14-2022 Functional Status N/A [facility] Mental Status Date Assessment Result Facility 01-09-2025 Cognitive function Cognitive Sta tus Patient is Progressing Toward Baseline [facility] Work Phone: 11-12-2024 Cognitive function Cognitive Sta tus Patient at Baseline [facility] Work Phone: 07-09-2024 Cognitive function Cognitive Sta tus Patient at Baseline [facility] Work Phone: 03-20-2024 Cognitive function Cognitive Sta tus Patient at Baseline [facility] Work Phone: 03-01-2024 Cognitive function Cognitive Sta tus Patient at Baseline [facility] Work Phone: 02-04-2024 Cognitive function Cognitive Sta tus Patient at Baseline [facility] Work Phone: Clinical Notes 08-09-2021 to 01-17-2025 Maya Fuentes TENTERING MACHINE FEEDER - 01/17/2025 11:00 AM EDTAssessment & Plan Note - DANICA Arguelles - 01/16/2025 2:10 PM EDTAssessment & Plan Note - DANICA Arguelles - 01/16/2025 2:10 PM EDT Note Date & Type Note Facility 01-17-2025 History of Presen t illness Narrative Patient here for EKG visit ordered by Ning Godoy KITCHEN LEAD due to prolong QTc. Ning Godoy KITCHEN LEAD in suite to review EKG prior to [...] in office today documented in this encounter [facility] Work Phone: 01-16-2025 Evaluation + Plan note Associated Problem(s): Cardiac sarcoidosis August 2015 cMRI EF 58% Cardiac sarcoidosis involvement basal inferior wall and basal inferior septum. [facility] Work Phone: 01-16-2025 Miscellaneous Notes Associated Problem(s): Cardiac sarcoidosis August 2015 cMRI EF 58% Cardiac sarcoidosis involvement basal inferior wall and basal inferior septum. Associated Problem(s): Cardiac and Vasculature July 2015 cardiac cath: angiographically normal coronaries May 2024 MPI No ischemia/infarct EF 57% Associated Problem(s): Chewing tobacco use Discussed risk of continued usage Associated Problem(s): intermediate (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 CHADS VASc 2 [...] Mar 2024 ECG in office today elba Post. 0.Jun hospitalization reported Qtc prolongation on dofetlide 250 mcg BID. Jan 09, 2025: inpatient ECG Qtc 548 documented in this encounter [facility] Work Phone: 01-16-2025 Evaluation + Plan note Associated Problem(s): Cardiac and Vasculature July 2015 cardiac cath: angiographically normal coronaries May 2024 MPI No ischemia/infarct EF 57% [facility] Work Phone: 01-16-2025 Evaluation + Plan note Associated Problem(s): Chewing tobacco use Discussed risk of continued usage [facility] Work Phone: 01-16-2025 Evaluation + Plan note Associated Problem(s): 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 (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 CHADS VASc 2 anticoagulated on full dose Xarelto CR 0.86 Denies bleeding diathesis Discharge Hgb 9.9 In 2014 had GIB on coumadin (for LV thrombus) [facility] Work Phone: 01-16-2025 Evaluation + Plan note [...] at recent discharge and has symptomatic hypotension [facility] Work Phone: 01-16-2025 Evaluation + Plan note Associated Problem(s): 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 (Multi) Maintaining NSR during December 2024 hospitalization Last PAF Mar 2024 (was on amiodarone at the time and changed to dofetilide) [facility] Work Phone: 01-16-2025 Evaluation + Plan note Associated Problem(s): High risk medication use Prior amiodarone failure Dofetilide 250mcg BID - start date Mar 2024 ECG in office today bigeminy Cr. 0.Jun hospitalization reported Qtc prolongation on dofetlide 250 mcg BID. Jan 09, 2025: inpatient ECG Qtc 548 [facility] Work Phone: 01-15-2025 History of Presen t [...] by family member. December 2024: hospitalized at [facility] due to SOB. Seen in Cardiology consult [...] at recent discharge and has symptomatic hypotension 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 (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 CHADS VASc 2 [...] ECG for Qtc tomorrow Ning Godoy MSN, STEAM CONDITIONING OPERATOR-[employer] SALESPERSON, PMHNP-[facility] [place], [place] Please excuse any errors in grammar or translation related to this dictation. Voice recognition software was utilized to prepare this document. documented in this encounter [facility] Work Phone: 01-15-2025 Instructions DANICA Arguelles - [...] ECG for Qtc documented in this encounter [facility] Work Phone: 01-09-2025 Discharge summary Note Date/Time January 09, 2025 1:41pm [facility] [address] [place] [address] Discharge Summary Signed Patient: Mary Mcadams MR#: [id number] : 1955 Acct:[id number] Age/Sex: 69 / M Adm Date: 5 Loc: Room: [address] [place] [address]: Jostin Larose DO Copies to: DO Jostin Waller, DO~ Providers Date of Admission: 01/05/25 Date of Discharge: 01/09/25 Discharging Provider: Jostin Larose Primary Care Provider: Adam Del Valle Consults: 01/05/25 02:39 Consult to Cardiology Routine Comment: Consulting Provider: [facility] Reason For Exam: abn trop Has Provider Been Notified: Yes Date of Notification: 01/05/25 Time of Notification: 07:26 01/05/25 02:40 Consult to Occupational Therapy Routine Comment: Physician Instructions: Consult to OT for:: Evaluation and Treat Consult to Physical Therapy Routine Comment: Physician Instructions: Consult to PT for:: Evaluation and Treat Discharge Diagnosis (1) Non-ST elevation VT (NSTEMI): (2) Takotsubo cardiomyopathy: (3) History of sarcoidosis: (4) Acute on chronic hypoxic respiratory failure: (5) Pulmonary sarcoidosis: (6) Atrial fibrillation: Final Diagnosis Final Discharge Diagnosis: as above Summary Hospital Course Hospital course: Mr Pema Gomes is a 69-year-old male who was admitted the hospital very chief warden of January 05 with a chief complaint [...] to 50%, per the review of the wool presser on the case who discussed it with [...] Continuity of Care Document Health Concerns: A [facility] screening has identified you as FRAIL [...] Four Ways to Beat the Frailty Risk https://www.[facility]/health/xjjryihy-gss-ltlvn ntion/yeza-qmbqyv-kiyz- wddf-cz-ksly-rjp-wyblgik-zjwi Exam Physical Exam Vital Signs: Temp Pulse [...] signed by Jostin Larose DO> 01/09/25 1341 [facility] Work Phone: 1(543) 460-725208-28-2025 Hospital Discharge instructionsAmbulatory Orders* Initiate Home Health Time Frame: 01/09/25, Location: Determined By Patient Additional Instructions Continue oxygen as per chronic orders Home health to manage: -RN/PT/OT/Aide/SW to eval and treat -Monitor VS per protocol -Fall precautions -Perform respiratory and cardiovascular assessments -Continue oxygen as per chronic orders -[facility] with [facility] Work Phone: 1(727) 496-829908-28-2025 [place] [address] Discharge Summary Signed Patient: Mary Mcadams MR#: [id number] : 1955 Acct:[id number] Age/Sex: 69 / M Adm Date: 5 Loc: Room: [address] [place] [address]: Jostin Larose DO Copies to: DO Jostin Wallre, DO~ Providers Date of Admission: 01/05/25 Date of Discharge: 01/09/25 Discharging Provider: Jostin Larose Primary Care Provider: Adam Del Valle Consults: 01/05/25 02:39 Consult to Cardiology Routine Comment: Consulting Provider: [facility], [facility] Reason For Exam: abn trop Has Provider Been Notified: Yes Date of Notification: 01/05/25 Time of Notification: 07:26 01/05/25 02:40 Consult to Occupational Therapy Routine Comment: Physician Instructions: Consult to OT for:: Evaluation and Treat Consult to Physical Therapy Routine Comment: Physician Instructions: Consult to PT for:: Evaluation and Treat Discharge Diagnosis (1) Non-ST elevation VT (NSTEMI): (2) Takotsubo cardiomyopathy: (3) History of sarcoidosis: (4) Acute on chronic hypoxic respiratory failure: (5) Pulmonary sarcoidosis: (6) Atrial fibrillation: Final Diagnosis Final Discharge Diagnosis: as above Summary Hospital Course Hospital course: Mr Pema Gomes is a 69-year-old male who was admitted the hospital very chief warden of with a chief complaint of shortness [...] to 50%, per the review of the wool presser on the case who discussed it with [...] time,please call to reschedule if needed. Ning Godoy, STEAM CONDITIONING OPERATOR [Referring, Cardiology] - 01/15/25 8:30 am Continuity of Care Document Health Concerns: A [facility] screening has identified you as FRAIL [...] Strong:Four Ways to Beat the Frailty Risk https://www.[facility].org/health/pbomvlhd-ebk-wjagyfonja/st at-lyicew-ogim- dpgv-aw-nwvb-pff-rklfnsl-kgkr Exam Physical Exam Vital Signs: Temp Pulse [...] Sodium 137, Potassium 4.9, Chloride 104, Carbon Ypktugv57.9, Anion Gap 11.0, BUN 45 H, Creatinine 1.15, Est GFR (CKD-EPI) > 60.0, Glucose 132 H, Calcium 8.8, Magnesium 2.3 Documented By: Jostin Larose DO 01/09/25 1329 Signed By: 01/09/25 1341 [facility]08-28-2025 Consult note Author Chacho Burroughs [facility] Note Date/Time January 09, 2025 10 :48am [facility] [address] [place] [address] Cardiology Consult Note Signed with Addenda Patient: Mary Mcadams MR#: [id number] : 1955 Acct:[id number] Age/Sex: 69 / M Adm Date: 5 Loc: Room: [address] [place] [address] Type: ADM IN Attending Dr: Jostin Larose [...] and no additional complaints, except as documented [facility] Medical History On home oxygen therapy Skin [...] # (Auto) 1.2 0.4 L (1.00-4.8) x10E3/uL Kerr # (Auto) 0.6 0.1 (0.0-0.8) x10E3/uL Eos [...] ml @ 999 mls/hr IV .Q31M ONE Rx#:[id number] cefTRIAXone 1GM-*NS* 1 gm In 50 50 / 50 ml @ 100 mls/hr IV ONCE ONE Rx #:[id number] Oral 350 / 350 Output: Urine 150 [...] block) A&P - Cardiology (1) Non-ST elevation VT (NSTEMI): Code(s): I21.4 - Non-ST elevation (NSTEMI) [...] <Electronically signed by MD Chacho Burroughs> 01/05/25 4596 [facility] Work Phone: 1(508) 380-833108-28-2025 Progress note Author Chacho Burroughs [facility] Note Date/Time January 09, 2025 10 :47am [facility] [address] [place] [address] Cardiology Progress Note Signed Patient: Mary Mcadams MR#: [id number] : 1955 Acct:[id number] Age/Sex: 69 / M Adm Date: 5 Loc: Room: [address] [place] [address] Type: ADM IN Attending Dr: Jostin Larose [...] 2.3 A&P - Cardiology (1) Non-ST elevation VT (NSTEMI): Code(s): I21.4 - Non-ST elevation (NSTEMI) [...] signed by MD Chacho Burroughs> 01/09/25 1047 [facility] Work Phone: 1(730) 571-474608-28-2025 [place] [address] Cardiology Consult Note Signed with Addenda Patient: Mary Mcadams MR#: [id number] : 1955 Acct:[id number] Age/Sex: 69 / M Adm Date: 5 Loc: Room: [address] [place] [address] Type: ADM IN Attending Dr: Jostin Larose [...] and no additional complaints, except as documented [facility] Medical History On home oxygen therapy Skin [...] # (Auto) 1.2 0.4 L (1.00-4.8) x10E3/uL Kerr # (Auto) 0.6 0.1 (0.0-0.8) x10E3/uL Eos [...] ml @ 999 mls/hr IV .Q31M ONE Rx#:[id number] cefTRIAXone 1GM-*NS* 1 gm In 50 50 / 50 ml @ 100 mls/hr IV ONCE ONE Rx #:[id number] Oral 350 / 350 Output: Urine 150 [...] block) A&P - Cardiology (1) Non-ST elevation VT (NSTEMI): Code(s): I21.4 - Non-ST elevation (NSTEMI) [...] disease Documented By: Chacho Burroughs MD 01/05/25 1037 Signed By: 01/05/25 3773 [facility]08-28-2025 [place] [id number] Cardiology Progress Note Signed Patient: Mary Mcadams MR#: [id number] : 1955 Acct:[id number] Age/Sex: 69 / M Adm Date: 5 Loc: 4 Room: [address] [place] [address] Type: ADM IN Attending Dr: Jostin Larose [...] 2.3 A&P - Cardiology (1) Non-ST elevation VT (NSTEMI): Code(s): I21.4 - Non-ST elevation (NSTEMI) [...] MD 01/09/25 1044 Signed By: 01/09/25 1047 [facility]08-27-2025 Progress note Author Chacho Burroughs [facility] Note Date/Time January 08, 2025 4: 24[facility] [address] [place] [address] Cardiology Progress Note Signed Patient: Mary Mcadams MR#: [id number] : 1955 Acct:[id number] Age/Sex: 69 / M Adm Date: Loc: 4P Room: [address] [place] [address] Type: ADM IN Attending Dr: Jostin Larose [...] L A&P - Cardiology (1) Non-ST elevation VT (NSTEMI): Code(s): I21.4 - Non-ST elevation (NSTEMI) [...] <Electronically signed by MD Chacho Burroughs> 01/08/25 2260 [facility] Work Phone: 1(808) 458-528608-27-[address] [address] Cardiology Progress Note Signed Patient: Mary Mcadams MR#: [id number] : 1955 Acct:[id number] Age/Sex: 69 / M Adm Date: 5 Loc: 4P Room: [id number] Type: ADM IN Attending Dr: Jostin Larose [...] L A&P - Cardiology (1) Non-ST elevation VT (NSTEMI): Code(s): I21.4 - Non-ST elevation (NSTEMI) [...] MD 01/08/25 1141 Signed By: 01/08/25 1624 [facility]08-27-2025 Progress note Author Jostin Larose [facility] Note Date/Time January 08, 2025 12 :58pm [facility] [address] [place] [address] Hospitalist Progress Note Signed Patient: Mary Mcadams MR#: [id number] : 1955 Acct:[id number] Age/Sex: 69 / M Adm Date: 5 Loc: 4P Room: [id number] Type: ADM IN Attending Dr: Jostin Larose [...] 09:00 01/08/25 08:09 Aspirin 81 Mg Tablet.Dr BILLINGS 01/05/26 08:59 81 mg DAILY ALEX Administration [...] 01/05/25 07:30 01/08/25 06:24 Pantoprazole 40 Mg Tablet. PO 01/05/26 07:29 [...] initiate oral magnesium daily. (2) Non-ST elevation VT (NSTEMI): Plan: Secondary to CHF exacerbation (3) History of sarcoidosis: Plan: Likely component ? Will order DuoNebs today (4) Acute on chronic hypoxic respiratory failure: Plan: Continue to titrate oxygen as able to Plan ? DVT prophylaxis addressed ? Regular diet ? Full code Documented By: Jostin Larose DO 01/08/25 1255 Signed By: <Electronically signed by Jostin Larose DO> 01/08/25 6836 [facility] Work Phone: 1(508) 266-322308-27-2025 [place] [address] Hospitalist Progress Note Signed Patient: Mary Mcadams MR#: [id number] : 1955 Acct:[id number] Age/Sex: 69 / M Adm Date: 5 Loc: Room: [address] [place] [address] Type: ADM IN Attending Dr: Jostin Larose [...] initiate oral magnesium daily. (2) Non-ST elevation VT (NSTEMI): Plan: Secondary to CHF exacerbation (3) History of sarcoidosis: Plan: Likely component ? Will order DuoNebs today (4) Acute on chronic hypoxic respiratory failure: Plan: Continue to titrate oxygen as able to Plan ? DVT prophylaxis addressed ? Regular diet ? Full code Documented By: Jostin Larose DO 01/08/251254 Signed By: 01/08/25 1258 [facility]08-26-2025 Progress note Author Chacho Burroughs [facility] Note Date/Time January 07, 2025 10 :37am [facility] [address] [place] [address] Cardiology Progress Note Signed Patient: Mary Mcadams MR#: [id number] : 1955 Acct:[id number] Age/Sex: 69 / M Adm Date: 5 Loc: Room: [address] [place] [address] Type: ADM IN Attending Dr: Jostin Larose [...] L A&P - Cardiology (1) Non-ST elevation VT (NSTEMI): Code(s): I21.4 - Non-ST elevation (NSTEMI) [...] signed by MD Chacho Burroughs> 01/07/25 1037 [facility] Work Phone: 1([phone]) 318-777108-26-2025 Progress note Author Jostin Larose [facility] Note Date/Time January 07, 2025 10 :09am [facility] [address] [place] [address] Hospitalist Progress Note Signed Patient: Mary Mcadams MR#: [id number] : 1955 Acct:[id number] Age/Sex: 69 / M Adm Date: Loc: 4 Room: [address] [place] [address] Type: ADM IN Attending Dr: Jostin Larose [...] A&P - Hospitalist Assessment/Plan (1) Non-ST elevation VT (NSTEMI): Plan: Secondary to CHF exacerbation (2) [...] signed by Jostin Larose DO> 01/07/25 1009 [facility] Work Phone: 1([phone] 529-653908-26-2025 [place] [address] Cardiology Progress Note Signed Patient: Mary Mcadams MR#: [id number] : 1955 Acct:[id number] Age/Sex: 69 / M Adm Date: 5 Loc: Room: [address] [place] [address] Type: ADM IN Attending Dr: Jostin Larose [...] L A&P - Cardiology (1) Non-ST elevation VT (NSTEMI): Code(s): I21.4 - Non-ST elevation (NSTEMI) [...] Burroughs MD 01/07/25 1031 Signed By: 01/07/[address] [place], [place] 5022208-26-2025 [place] [address] Hospitalist Progress Note Signed Patient: Mary Mcadams MR#: [id number] : 1955 Acct:[id number] Age/Sex: 69 / M Adm Date: 5 Loc: Room: [address] [place] [address] Type: ADM IN Attending Dr: Jostin Larose [...] 01/05/25 09:00 01/07/25 08:15 Aspirin 81 Mg Tablet. PO 01/05/26 08:59 [...] 01/07/25 08:15 Tamsulosin 0.4 Mg Cap.Er.24h PO 08/24/26 08:59 0.4 mg BID ALEX Administration Valacyclovir HCl 1,000 mg 01/05/25 09:00 01/07/25 08:15 Valacyclovir 500 Mg Tablet PO 1,000 mg BID ALEX Administration Valsartan 40 mg 01/06/25 09:00 01/07/25 08:15 Valsartan 40 Mg Tablet PO 01/06/26 08:59 40 mg DAILY ALEX Administration A&P - Hospitalist Assessment/Plan (1) Non-ST elevation VT (NSTEMI): Plan: Secondary to CHF exacerbation (2) [...] DO 01/07/25 1001 Signed By: 01/07/25 1009 [facility]08-25-2025 Progress note Author Jostin Larose [facility] Note Date/Time January 06, 2025 3: 06pm [facility] [address] [place] [address] Hospitalist Progress Note Signed Patient: Mary Mcadams MR#: [id number] : 1955 Acct:[id number] Age/Sex: 69 / M Adm Date: 5 Loc: Room: [id number] Type: ADM IN Attending Dr: Jostin Larose [...] A&P - Hospitalist Assessment/Plan (1) Non-ST elevation VT (NSTEMI): Plan 1. Acute decompensated HFrEF Rgxoa-qj-xdos ultrasound shows severely depressed LVEF. This is [...] <Electronically signed by Jostin Larose DO> 01/06/25 1500 [facility] Work Phone: 1(693) [phone] [place] [phone] Hospitalist Progress Note Signed Patient: Mary Mcadams MR#: [id number] : 1955 Acct:[id number] Age/Sex: 69 / M Adm Date: 5 Loc: 4P Room: [address] [place] [address] Type: ADM IN Attending Dr: Jostin Larose [...] 01/05/25 07:30 01/06/25 08:55 Pantoprazole 40 Mg Tablet. PO 01/05/26 07:29 [...] A&P - Hospitalist Assessment/Plan (1) Non-ST elevation VT (NSTEMI): Plan 1. Acute decompensated HFrEF Lfelo-nu-utny ultrasound shows severely depressed LVEF. This is [...] DO 01/06/25 1504 Signed By: 01/06/25 1506 [facility]08-25-2025 Progress note Author Chacho Burroughs [facility] Note Date/Time January 06, 2025 11 :44am [facility] [address] [place] [address] Cardiology Progress Note Signed with Addenda Patient: Mary Mcadams MR#: [id number] : 1955 Acct:[id number] Age/Sex: 69 / M Adm Date: 5 Loc: Room: [address] [place] [address] Type: ADM IN Attending Dr: Jostin Larose DO Copies to: ~ ADDENDUM1 Correction will switch his IV heparin back to his home dose Xarelto 20 mg daily Addendum Documented By: MD Chacho Burroughs 01/06/25 1144 Addendum Signed By: <Electronically signed by MD Chacho Burroughs> 01/06/25 1144 Date of Service: 01/06/2025 Subjective [...] Sens A&P - Cardiology (1) Non-ST elevation VT (NSTEMI): Code(s): I21.4 - Non-ST elevation (NSTEMI) [...] signed by MD Chacho Burroughs> 01/06/25 1142 [facility] Work Phone: 1(498) 309-306708-25-2025 [place] [phone] Cardiology Progress Note Signed with Addenda Patient: Mary Mcadams MR#: [id number] : 1955 Acct:[id number] Age/Sex: 69 / M Adm Date: 5 Loc: Room: [address] [place] [address] Type: ADM IN Attending Dr: Jostin Larose [...] Sens A&P - Cardiology (1) Non-ST elevation VT (NSTEMI): Code(s): I21.4 - Non-ST elevation (NSTEMI) [...] MD 01/06/25 1140 Signed By: 01/06/25 1142 [facility]08-24-2025 Progress note Author Altaf Jones [facility] Note Date/Time January 05, 2025 2: 09pm [facility] [address] [place] [address] Hospitalist Progress Note Signed Patient: Mary Mcadams MR#: [id number] : 1955 Acct:[id number] Age/Sex: 69 / M Adm Date: 5 Loc: 4 Room: [address] [place] [address] Type: ADM IN Attending Dr: Altaf Jones MD Copies to: ~ Date of Service: 01/05/2025 Subjective Subjective Narrative: Patient has obvious orthopnea when laying flat. Dry cough. No chest pain Heart regular, no gallop rub. Positive JVD. Pzqqy-zo-oieh ultrasound with severely decreased LVEF. No effusion. [...] A&P - Hospitalist Assessment/Plan (1) Non-ST elevation VT (NSTEMI): Plan 1. Acute decompensated HFrEF Verbg-cu-nswa ultrasound shows severely depressed LVEF. This is a relatively new development. Awaiting formal echo Initiate diuretic therapy IV furosemide. Monitor renal function electrolytes Initiate medical therapy for HFrEF Ischemic workup per cardiology. Cath in 2016 no CAD. 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 Discussed with Dr. Burroughs Chronic problems Pulmonary [...] signed by Altaf Jones MD> 01/05/25 1409 [facility] Work Phone: 1(105) [phone] [place] [address] Hospitalist Progress Note Signed Patient: Mary Mcadams MR#: [id number] : 1955 Acct:[id number] Age/Sex: 69 / M Adm Date: 5 Loc: Room: [address] [place] [address] Type: ADM IN Attending Dr: Altaf Jones MD Copies to: ~ Date of Service: 01/05/2025 Subjective Subjective Narrative: Patient has obvious orthopnea when laying flat. Dry cough. No chest pain Heart regular, no gallop rub. Positive JVD. Xtuus-pz-kmru ultrasound with severely decreased LVEF. No effusion. [...] 40 Mg Tablet PO 01/06/26 08:59 DAILY [facility] A&P - Hospitalist Assessment/Plan (1) Non-ST elevation VT (NSTEMI): Plan 1. Acute decompensated HFrEF Jlqac-ux-crjh ultrasound shows severely depressed LVEF. This is [...] MD 01/05/25 1402 Signed By: 01/05/25 1409 [facility]08-24-2025 Radiology Diagnostic study note [facility] [place] [address] [place] [address] CT Scan Report Signed Patient: Mary Mcadams MR#: [id number] : 1955 Acct:[id number] Age/Sex: 69 / M ADM Date: 5 Loc: Room: [address] [place] [address] Type: ADM IN Attending Dr: Altaf Jones [...] Varela M.D. 01/05/2025 11:46 AM Dictation Location: [place] [address] Transcribed By: [facility] 01/05/25 1146 Dictated By: Juliocesar Varela II, MD 01/05/25 1138 Signed By: 01/05/25 1146 [facility] Work Phone: 1([phone]) 576-305808-24-2025 History and physical note Author Elsie Leonard [facility] Note Date/Time January 05, 2025 4: 14am [facility] [address] [place] [address] Hospitalist H&P Signed Patient: Mary Mcadams MR#: [id number] : 1955 Acct:[id number] Age/Sex: 69 / M Adm Date: 5 Loc: 4 Room: [address] [place] [address] Type: ADM IN Attending Dr: Elsie Leonard [...] chest did not reveal any pulmonary embolism [facility] Medical History (Updated 01/05/25 @ 01:19 by [...] % (Auto) 12.3 % (.) 01/04/25 22:10 Kerr % (Auto) 6.2 % (.) 01/04/25 22:10 Eos % (Auto) 3.2 % (.) 01/04/25 22:10 Baso % (Auto) 0.6 % (.) 01/04/25 22:10 Nucleat RBC Rel Count 0.1 /100 WBC (0-0.5) 01/04/25 22:10 Neut # (Auto) 7.9 x10E3/uL (1.8-7.7) H 01/04/25 22:10 Lymph # (Auto) 1.2 x10E3/uL (1.00-4.8) 01/04/25 22:10 Kerr # (Auto) 0.6 x10E3/uL (0.0-0.8) 01/04/25 22:10 [...] Assessment & Plan Assessment/Plan (1) Non-ST elevation VT (NSTEMI): Plan 1. Acute on chronic (2 [...] <Electronically signed by Elsie Leonard MD> 01/05/25 0419 [facility] Work Phone: 1(930) 124-472908-24-2025 [place] [address] Hospitalist H&P Signed Patient: Mary Mcadams MR#: [id number] : 1955 Acct:[id number] Age/Sex: 69 / M Adm Date: 5 Loc: Room: [address] [place] [address] Type: ADM IN Attending Dr: Elsie Leonard [...] chest did not reveal any pulmonary embolism [facility] Medical History (Updated 01/05/25 @ 01:19 by [...] Eye-Left HS 10/12/23 [History Confirmed 01/05/25] Oxygen 06/10/24 [History Confirmed 01/05/25] multivitamin with minerals 1 [...] % (Auto) 12.3 % (.) 01/04/25 22:10 Kerr % (Auto) 6.2 % (.) 01/04/25 22:10 Eos % (Auto) 3.2 % (.) 01/04/25 22:10 Baso % (Auto) 0.6 % (.) 01/04/25 22:10 Nucleat RBC Rel Count 0.1 /100 WBC (0-0.5) 01/04/25 22:10 Neut # (Auto) 7.9 x10E3/uL (1.8-7.7) H 01/04/25 22:10 Lymph # (Auto) 1.2 x10E3/uL (1.00-4.8) 01/04/25 22:10 Kerr # (Auto) 0.6 x10E3/uL (0.0-0.8) 01/04/25 22:10 [...] Assessment & Plan Assessment/Plan (1) Non-ST elevation VT (NSTEMI): Plan 1. Acute on chronic (2 [...] MD 01/05/25 0354 Signed By: 01/05/25 0414 [facility]07-01-2025 Discharge summary Author Hoang Conner [facility] Note Date/Time November 12, 2024 2:14p m [facility] [address] [place] [address] Discharge Summary Signed Patient: Mary Mcadams MR#: [id number] : 1955 Acct:[id number] Age/Sex: 69 / M Adm Date: 5 Loc: Room: [address] [place] [address]: Hoang Conner DO Copies to: [...] Plan Discharge Plan Patient Disposition: Home Health [facility] Activity: No Activity Restriction Diet: Low-Fat and [...] at HS and napping DME [facility] Ellipta 200-62.5-25 mcg blister with device [...] Continuity of Care Document Health Concerns: A [facility] screening has identified you as FRAIL [...] Four Ways to Beat the Frailty Risk https://www.[facility].org/health/hacxnxjj-tgk-gsatlkvdlt/jljk-durwnq-zcan- rveu-vf-umjn-oab-xxpqzyz-iwnd Exam Physical Exam Vital Signs: Temp Pulse [...] % (Auto) 93.0, Lymph % (Auto) 4.1, Kerr % (Auto) 2.8, Eos % (Auto) 0.0, Baso % (Auto) 0.1, Nucleat RBC Rel Count 0.0, Neut # (Auto) 17.1 H, Lymph # (Auto) 0.7 L, Kerr # (Auto) 0.5, Eos # (Auto) 0.0, Baso # (Auto) 0.0, PHA Creatinine Clear 65.31, Sodium 135 L, Potassium 4.1, Chloride 100, Carbon Dioxide 28.1, Anion Gap 11.0, BUN 22, Creatinine 0.92, Est GFR (CKD-EPI) > 60.0, Glucose 144 H, Calcium 9.1 11/11/24 15:39: Urine Color Light-yellow, Urine Appearance Clear, Urine pH 5.5, Ur Specific [place] 1.012, Urine Protein Negative, Urine Glucose (UA) [...] <Electronically signed by Hoang Conner DO> 11/12/24 [facility] Work Phone: 1([phone]) 794-699507-01-2025 [place] [phone] Discharge Summary Signed Patient: Mary Mcadams MR#: [id number] : 1955 Acct:[id number] Age/Sex: 69 / M Adm Date: 5 Loc: Room: 8E8234-[address]: Hoang Conner DO Copies to: [...] Plan Discharge Plan Patient Disposition: Home Health [facility] Activity: No Activity Restriction Diet: Low-Fat and [...] Instructions: 2 liters at HS and napping [facility] Ellipta 200-62.5-25 mcg blister with device [...] Determined by Patient Ordered By: Hoang Conner [facility] Home Medical Equipment (Routine) Timeframe: 1 Day Location: Determined by Patient Ordered By: Hoang Conner Follow Up: Adam Del Valle DO [Primary Care Provider, Internal Medicine] - 11/18/24 11:45 am Referral Note: Follow-up with your Primary Care Provider, call office to reschedule if needed. Continuity of Care Document Health Concerns: A [facility] screening has identified you as FRAIL [...] Strong:Four Ways to Beat the Frailty Risk https://www.[facility].org/health/jhjniynd-twt-ckvittavnx/st ws-hmukvt-rluo- drul-gx-nzsg-ykg-irxzjzk-flgr Exam Physical Exam Vital Signs: Temp Pulse [...] Neut % (Auto) 93.0, Lymph% (Auto) 4.1, Kerr % (Auto) 2.8, Eos % (Auto) 0.0, Baso % (Auto) 0.1, Nucleat RBC Rel Count 0.0, Neut # (Auto) 17.1 H, Lymph # (Auto) 0.7 L, Kerr # (Auto) 0.5, Eos # (Auto) 0.0, [...] 11/12/24 12 51 Signed By: 11/12/24 1414 [facility]06-30-2025 Progress note Author Hoang Conner [facility] Note Date/Time November 11, 2024 1:12 pm [facility] [address] [place] [address] Progress Note Signed Patient: Mary Mcadams MR#: [id number] : 1955 Acct:[id number] Age/Sex: 69 / M Adm Date: 5 Loc: Room: [address] [place] [address] Type: ADM IN Attending Dr: Hoang Conner [...] signed by Hoang Conner DO> 11/11/24 1312 [facility] Work Phone: 1(315) 131-280006-30-2025 [place] [phone] Progress Note Signed Patient: Mary Mcadams MR#: [id number] : 1955 Acct:[id number] Age/Sex: 69 / M Adm Date: 5 Loc: 3T Room: [address] [place] [address] Type: ADM IN Attending Dr: Hoang Conner [...] DO 11/11/24 13 10 Signed By: 11/11/[address] [place], [place] 3765806-30-2025 History and physical note Author Silvano Reed [facility] Note Date/Time November 11, 2024 3:30 am [facility] [address] [place] [address] Hospitalist H&P Signed Patient: Mary Mcadams MR#: [id number] : 1955 Acct:[id number] Age/Sex: 69 / M Adm Date: 5 Loc: ER Room: Type: [facility] ER Attending Dr: Copies to: Adam Del [...] except as mentioned elsewhere in the documentation. [facility] Medical History (Updated 11/11/24 @ 03:27 by [...] Legacy FamHx Relation: Brother(s) Father Cancer Legacy Famx Problem: Diagnosed with Cancer Mother Heart disease [...] 11/10/24 23: MPV 7.9 fl (6.6-10.1) 11/10/24 23:30 Neut % (Auto) 66.5 % (.) 11/10/24 23: Lymph % (Auto) 18.7 % (.) 11/10/24 23: Kerr % (Auto) 9.3 % (.) 11/10/24 23: Eos % (Auto) 5.0 % (.) 11/10/24 23: Baso % (Auto) 0.5 % (.) 11/10/24 23: Nucleat RBC Rel Count 0.1 /100 WBC (0-0.5) 11/10/24 23: Neut # (Auto) 4.3 x10E3/uL (1.8-7.7) 11/10/24 23: Lymph # (Auto) 1.2 x10E3/uL (1.00-4.8) 11/10/24 23:30 Kerr # (Auto) 0.6 x10E3/uL (0.0-0.8) 11/10/24 23:30 Eos # (Auto) 0.3 x10E3/uL (0.0-0.45) 11/10/24 23: Baso # (Auto) 0.0 x10E3/uL (0.0-0.2) 11/10/24 23: Monocyte Dist Width 18.48 % (0.00-20.00) 11/10/24 23:30 PHA Creatinine Clear 77.17 11/10/24 23: Sodium 133 mmol/L (136-145) L 11/10/24: Potassium 4.1 mmol/L (3.5-5.1) 11/10/24: Chloride 98 mmol/L (98-107) 11/10/24: Carbon Dioxide 28.0 mmol/L (21.0-31.0) 11/10/24: Anion Gap 11.1 mEq/L (6.0-15.0) 11/10/24 23: BUN 14 mg/dL (7-25) 11/10/24: Creatinine 0.80 mg/dL (0.70-1.30) 11/10/24 23: Est GFR (CKD-EPI) > 60.0 mL/Min 11/10/24: Glucose 100 mg/dL (70-100) 11/10/24: Calcium 9.8 mg/dL (8.6-10.3) 11/10/24: Magnesium 1.6 mg/dL (1.9-2.7) L 11/10/24: Total Bilirubin 0.6 mg/dl (0.3-1.0) 11/10/24: AST 19 U/L (13-39) 11/10/24: ALT 10 U/L (7-52) 11/10/24 23: Alkaline Phosphatase 149 U/L (34-104) H 11/10/24 23: Total Creatine Kinase 27 U/L (30-223) L [...] pH 5.5 (5.0-9.0) 11/10/24 23:15 Ur Specific [place] 1.010 (1.001-1.030) 11/10/24 23:15 Urine Protein Negative [...] days): 3 Documented By: Silvano Reed DO 032 Signed By: <Electronically signed by Silvano Reed DO> 11/11/24 0330 [facility] Work Phone: 1([phone]) 496-260806-30-2025 Evaluation note* Diagnosis Onset Date Resolution Status [...] Acute cystitis noneactive November 19, 2024 11:39am [facility] Work Phone: [phone]) 330-985906-30-2025 Evaluation note* Diagnosis Onset Date Resolution Status [...] acute Au elva 2024 1:53am Non-ST elevation VT (NSTEMI) acute January 05, 2025 1:53am [facility] Work Phone: 1([phone] 221-928106-30-2025 Evaluation note* Diagnosis Onset Date Resolution Status Admit Date Bullous emphysema acute November 112024 3:15am Chronic respiratory failure with hypoxia acute November 11, 2024 3:15am Pulmonary sarcoidosis acute Nacho 2024 3:15am Acute exacerbation of chroni c [...] acute Au elva 2024 1:53am Non-ST elevation VT (NSTEMI) acute January 05, 2025 1:53am Takotsubo cardiomyopathy acute January 05, 2025 1:53am [facility] Work Phone: [phone] 949-619106-30-2025 Evaluation note* Diagnosis Onset Date Resolution Status Admit Date Bullous emphysema acute November 112024 3:15am Chronic respiratory failure with hypoxia acute November 11, 2024 3:15am Pulmonary sarcoidosis acute Nacho 2024 3:15am Acute exacerbation of chroni c [...] 2025 1:53am History of sarcoidosis inactive Au 2024 1:53am Non-ST elevation VT (NSTEMI) inactiv e January 05, 2025 1:53am Bronchiectasis, uncomplicated acute January 21, 2025 1:09pm Bullous emphysema acute Septemb er 2024 1:09pm Cardiac sarcoidosis acute Septe mber 2024 1:09pm Chronic respiratory failure with hypoxia acute January 21, 2 025 1:09pm History of aspergilloma acute S eptember 2024 1:09pm Pulmonary sarcoidosis acute Sep tember 2024 1:09pm [facility] Work Phone: 1([phone] 415-555706-30-2025 [place] [address] Hospitalist H&P Signed Patient: Mary Mcadams Jennifer MR#: [id number] : 1955 Acct:[id number] Age/Sex: 69 / M Adm Date: 5 Loc: ER Room: Type: [facility] ER Attending Dr: Copies to: DO Hasmukh Waller DO Kristopher L Lindbloom, DO~ HPI DATE OF EXAMINATION: 11/11/24 CHIEF [...] except as mentioned elsewhere in the documentation. [facility] Medical History (Updated 11/11/24 @ 03:27 by [...] 11/10/24 23:30 RBC 3.90 x10E6/uL (3.90-5.60) 11/10/24 23:30 Hgb 10.5 g/dL (13.0-17.0) L 11/10/24 23:30 Hct 31.6 % (38.8-50.0) L 11/10/24 23: MCV 80.8 fl (83.5-101) L 11/10/24 23:30 MCH 27.0 pg (27.5-35.2) L 11/10/24 23:30 MCHC 33.4 g/dL (32.5-35.6) 11/10/24 23: RDW 16.5 % (12.0-14.8) H 11/10/24 23:30 Plt Count 262 x10E3/uL (150-450) 11/10/24 23: MPV 7.9 fl (6.6-10.1) 11/10/24 23: Neut % (Auto) 66.5 % (.) 11/10/24 23:30 Lymph % (Auto) 18.7 % (.) 11/10/24 23: Kerr % (Auto) 9.3 % (.) 11/10/24 23: Eos % (Auto) 5.0 % (.) 11/10/24 23: Baso % (Auto) 0.5 % (.) 11/10/24 23: Nucleat RBC Rel Count 0.1 /100 WBC (0-0.5) 11/10/24 23: Neut # (Auto) 4.3 x10E3/uL (1.8-7.7) 11/10/24 23: Lymph # (Auto) 1.2 x10E3/uL (1.00-4.8) 11/10/24 23:30 Kerr # (Auto) 0.6 x10E3/uL (0.0-0.8) 11/10/24 23:30 Eos # (Auto) 0.3 x10E3/uL (0.0-0.45) 11/10/24 23: Baso # (Auto) 0.0 x10E3/uL (0.0-0.2) 11/10/24 23: Monocyte Dist Width 18.48 % (0.00-20.00) 11/10/24 23: PHA Creatinine Clear 77.17 11/10/24 23: Sodium 133 mmol/L (136-145) L 11/10/24 23: Potassium 4.1 mmol/L (3.5-5.1) 11/10/24 23: Chloride 98 mmol/L (98-107) 11/10/24: Carbon Dioxide 28.0 mmol/L (21.0-31.0) 11/10/24 23: Anion Gap 11.1 mEq/L (6.0-15.0) 11/10/24 23: BUN 14 mg/dL (7-25) 11/10/24 23:30 Creatinine 0.80 mg/dL (0.70-1.30) 11/10/24 23:30 Est GFR (CKD-EPI) > 60.0 mL/Min 11/10/24 23:30 Glucose 100 mg/dL (70-100) 11/10/24 23:30 Calcium 9.8 mg/dL (8.6-10.3) 11/10/24 23:30 Magnesium 1.6 mg/dL (1.9-2.7) L 11/10/24 23:30 Total Bilirubin 0.6 mg/dl (0.3-1.0) 11/10/24 23:30 [...] pH 5.5 (5.0-9.0) 11/10/24 23:15 Ur Specific [place] 1.010 (1.001-1.030) 11/10/24 23:15 Urine Protein Negative [...] By: Silvano Reed DO 319 Signed By: 11/11/24329 [facility]06-19-2025 History of Present illness Narrative * [...] Diskus) 500-50 mcg/dose diskus inhaler 1 puff zshuqldield-fhgxvdbto-prunppdy (TRELEGY-ELLIPTA) 200-62.5-25 mcg blister with device Mydflqdxkgm-Mhkalnmtz-Yarlhcxt (Trelegy Ellipta) 200-62.5-25 mcg blister with device Active 1 INH INHALATION [id number] October 22, 2023 11:00pm Rinse after use [...] my name below, Audra Herrera LPN , Scribe attest that this documentation [...] exam, discussion and plan. documented in this [facility] Work Phone: 1(937) 386-260406-19-2025 Instructions* Patient Instructions* Audra Morales LPN - [...] of valsartan Follow up documented in this [facility] Work Phone: 1([phone]) 232-713804-21-2025 Evaluation note* Diagnosis Onset Date Resolution Status [...] 2024 3:15am Pulmonary sarcoidosis acute Oct 3:15am [facility] Work Phone: 1([phone] Evaluation note* Diagnosis Onset Date Resolution Status [...] November 11, 2024 3:15am Pulmonary sarcoidosis acute Nacho 2024 3:15am Arrhythmia deleted November 11 3:15am Breath [...] Acute cystitis noneactive November 19, 2024 11:39am [facility] Work Phone: 1([phone]) [phone] NotePatient Education Urology Benign Prostatic Hyperplasia Benign [...] Follow these instructions at home: ??? Take zwaj-fjh-dsbsvnd and prescription medicines only as told by [...] symptoms do not get (more content not included)...[facility]03-13-2025 History of Present illness Narrative* Harriet Gibson LPN - 07/25/2024 10:00 AM EDT Patient here for EKG visit ordered by Dr. Gonzalez due to a-fib and prolonged QT due to dofetilide. Dofetilide was decreased to 125mcg in hospital stay; discharged from [facility] 07.09.24. Dr. Rodriguez in suite to review [...] m (6' 1 ) documented in this [facility] Work Phone: 1([phone]) 390-412903-11-2025 History of Present illness Narrative* Edward Jefferson DO Kirby - 07/23/2024 11:59 PM EDT Patient Name: Mary Mcadams Date of : 1955 Date of Service: 07/23/2024 Facility: [facility] Type of Visit: Skilled Visit Subjective Mary Mcadams is a 68 y.o. male seen today at [facility] facility for skilled visit. Mary is feeling [...] Exam Vitals reviewed. Exam conducted with a program aide present (Flex Anitaamparo MS3). Constitutional: General: He is not in [...] reach maximum improvement. ELECTRONICALLY SIGNED BY: Edward Orr, DO documented [facility] History of Present illness Narrative* Edward Paulino DO [place] - 07/16/2024 11:59 PM EST Patient Name: Mary Mcadams Date of : 1955 Date of Service: 07/16/2024 Facility: [facility] Type of Visit: Skilled Visit Subjective Mary Mcadams is a 68 y.o. male seen today at correction facility for therapy visit. Staff reports that [...] Exam Vitals reviewed. Exam conducted with a program aide present (Flex Zhong MS3). Constitutional: General: He [...] hyponatremia 8. Hypokalemia 9. Sarcoidosis of lung ([facility]) 10. Chronic systolic congestive heart failure ([facility]) 11. Muscle weakness (generalized) 12. Alcohol dependence, 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[facility]) He is hypotensive so I am going to stop his PM dose of furosemide but continue AM dose. I will alsostop tamsulosin as that can cause hypotension. May be able to restart it later. Check CBC, CMP and Mg+ Continue therapy, other orders as directed. ELECTRONICALLY SIGNED BY: Edward Orr DO documented in this encounterThe [facility]02-26-2025 History of Present illness Narrative* Edward Orr DO - 07/10/2024 11:59 PM EST Patient Name: Mary Mcadams Date of : 1955 Date of Service: 07/10/2024 Facility: [facility] Type of Visit: Admission H&P Subjective Mary Mcadams is a 68 y.o. male seen today at correction facility for No chief complaint on file. . 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 No past medical history on [...] Plan 1. Chronic respiratory failure with hypoxia ([facility]) 2. Closed wedge compression fracture of T8 vertebra with routine healing, subsequent encounter 3. Closed wedge compression fracture of T7 vertebra with routine healing, subsequent encounter 4. Sarcoidosis of lung ([facility]) 5. Chronic systolic congestive heart failure ([facility]) 6. Sarcoid myocarditis 7. Gross hematuria 8. Hypo-osmolality and hyponatremia 9. Hypokalemia 10. Alcohol dependence, 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[facility]) 11. Benign prostatic hyperplasia with lower urinary tract symptoms, symptom details unspecified 12. Other spondylosis, lumbar region 13. Muscle weakness (generalized) 14. Encephalopathy, unspecified type 15. Occlusion and stenosis of right carotid artery 16. Gastroesophageal reflux disease without esophagitis 17. Chronic atrial fibrillation ([facility]) Admit to [facility] for therapies. Continue medications as before Full code Continue salinas catheter Good rehab potentia ELECTRONICALLY SIGNED BY: Edward Orr DO documented in this encounterThe [facility]02-25-2025 Discharge summary Author Altaf Jones [facility] Note Date/Time July 09, 2024 1:09pm [facility] [address] [place] [address] Discharge Summary Signed Patient: Mary Mcadams MR#: [id number] : 1955 Acct:[id number] Age/Sex: 68 / M Adm Date: 5 Loc: Room: [address] [place] [address]: Altaf Jones MD Copies to: [...] 45 Discharge Plan Discharge Plan Patient Disposition: Penitentiary Facility Activity: No Activity Restriction Diet: Regular [...] Instructions: 2 liters at HS and napping [facility] Ellipta 200-62.5-25 mcg blister with device [...] intranasal DAILY Follow Up: [facility] [Outside] - 08/05/24 1:15 pm (Previously scheduled appointment with Dr. Norman. ) Shannon Gonzalez MD [Active Staff] - 09/13/24 2:10 pm (Have an EKG done in my office on 07/18/24 at 2pm) Adam Del Valle DO [Primary Care Provider] - (Please arrange a follow-up appointment once discharged from SNF. ) Continuity of Care Document Health Concerns: A [facility] screening has identified you as FRAIL [...] Four Ways to Beat the Frailty Risk https://www.[facility].org/health/yxhpwacw-fmz-tvvvzhvzjx/vljw-qvcotq-erbm- xxqv-sb-ciek-ojr-bbxhaet-bdvb Exam Physical Exam Vital Signs: Temp Pulse [...] signed by Altaf Jones MD> 07/09/24 1309 [facility] Work Phone: 1(363) [phone] [place] [id number] Discharge Summary Signed Patient: Mary Mcadams MR#: [id number] : 1955 Acct:[id number] Age/Sex: 68 / M Adm Date: 5 Loc: Room: [address] [place] [address]: Altaf Jones MD Copies to: MD Adam Carballo,DO~ Providers Date of Discharge: 07/09/24 Discharging Provider: [...] 45 Discharge Plan Discharge Plan Patient Disposition: Penitentiary Facility Activity: No Activity Restriction Diet: Regular [...] Instructions: 2 liters at HS and napping [facility] Ellipta 200-62.5-25 mcg blister with device [...] intranasal DAILY Follow Up: [facility] [Outside] - 08/05/24 1:15 pm (Previously scheduled appointment with Dr. Norman. ) Shannon Gonzalez MD [Active Staff] - 09/13/24 2:10 pm (Have an EKG done in my office on 07/18/24 at 2pm) Adam Del Valle DO [Primary Care Provider] - (Please arrange a follow-up appointment once dischargedfrom SNF. ) Continuity of Care Document Health Concerns: A [facility] screening has identified you as FRAIL [...] Strong:Four Ways to Beat the Frailty Risk https://www.[facility].org/health/iatxhhum-uvh-qxebwercop/st tm-hwlxgs-ojla- aacd-aq-gzmi-bpo-iwzyhrq-ndhf Exam Physical Exam Vital Signs: Temp Pulse [...] MD 07/09/24 1301 Signed By: 07/09/24 1309 [facility]02-24-2025 Progress note Author Ambrose Hsieh [facility] Note Date/Time July 08, 2024 5:36pm [facility] [address] [place] [address] Hospitalist Progress Note Signed Patient: Mary Mcadams MR#: [id number] : 1955 Acct:[id number] Age/Sex: 68 / M Adm Date: 5 Loc: 3T Room: [address] [place] [address] Type: ADM IN Attending Dr: Ambrose Hsieh [...] spray 07/04/24 09:00 07/08/24 08:33 Fluticasone Propionate Spraggs 120 Spraggs/16 Gm Bottle INTRANASAL 07/04/25 08:59 1 spray [...] stable for discharge to SNF ([facility]) once pre-cert approved Hematoma/infectious process to left [...] signed by Ambrose Hsieh MD> 07/08/24 1736 [facility] Work Phone: 1(174) 825-897602-24-2025 [place] [address] Hospitalist Progress Note Signed Patient: Mary Mcadams MR#: [id number] : 1955 Acct:[id number] Age/Sex: 68 / M Adm Date: 5 Loc: Room: [address] [place] [address] Type: ADM IN Attending Dr: Ambrose Hsieh [...] spray 07/04/24 09:00 07/08/24 08:33 Fluticasone Propionate Spraggs 120 Spraggs/16 Gm Bottle INTRANASAL 07/04/25 08:59 1 spray [...] stable for discharge to SNF ([facility]) once pre-cert approved Hematoma/infectious process to left [...] MD 07/08/24 1040 Signed By: 07/08/24 1736 [facility]02-24-2025 Progress note Author Shannon Gonzalez [facility] Note Date/Time July 08, 2024 12:45pm [facility] [address] [place] [address] Cardiology Progress Note Signed with Addenda Patient: Mary Mcadams MR#: [id number] : 1955 Acct:[id number] Age/Sex: 68 / M Adm Date: 5 Loc: Room: [address] [place] [address] Type: ADM IN Attending Dr: Ambrose Hsieh [...] 3-continuous telemetry. Documented By: Shannon Gonzalez MD, [facility] 5 1230 Signed By: <Electronically signed by MD POOL Gonzalez> 07/08/24 1242 [facility] Work Phone: 1(994) 619-490802-24-2025 [place] [address] Cardiology Progress Note Signed with Addenda Patient: Mary Mcadams MR#: [id number] : 1955 Acct:[id number] Age/Sex: 68 / M Adm Date: 5 Loc: Room: [address] [place] [address] Type: ADM IN Attending Dr: Ambrose Hsieh [...] 3-continuous telemetry. Documented By: Shannon Gonzalez MD, [facility] 5 1230 Signed By: 07/08/24 1242 [facility]02-23-2025 Progress note Author Andres Herrera [facility] Note Date/Time July 07, 2024 4:21pm [facility] [address] [place] [address] Cardiology Progress Note Signed Patient: Mary Mcadams MR#: [id number] : 1955 Acct:[id number] Age/Sex: 68 / M Adm Date: 5 Loc: Room: [address] [place] [address] Type: ADM IN Attending Dr: Ambrose Hsieh [...] By: <Electronically signed by Andres Herrera MD> 07/07/241620 [facility] Work Phone: 1(326) 475-860002-23-2025 Progress note Author Ambrose Hsieh [facility] Note Date/Time July 07, 2024 2:56pm [facility] [address] [place] [address] Hospitalist Progress Note Signed Patient: Mary Mcadams MR#: [id number] : 1955 Acct:[id number] Age/Sex: 68 / M Adm Date: 5 Loc: 3T Room: [address] [place] [address] Type: ADM IN Attending Dr: Ambrose Hsieh [...] spray 07/04/24 09:00 07/07/24 08:55 Fluticasone Propionate Spraggs 120 Spraggs/16 Gm Bottle INTRANASAL 07/04/25 08:59 1 spray [...] <Electronically signed by Ambrose Hsieh MD> 07/07/24 [facility] Work Phone: 1(489) 368-948302-23-2025 [place] [address] Cardiology Progress Note Signed Patient: Mary Mcadams MR#: [id number] : 1955 Acct:[id number] Age/Sex: 68 / M Adm Date: 5 Loc: Room: [address] [place] [address] Type: ADM IN Attending Dr: Ambrose Hsieh [...] telemetry. Documented By: Andres Herrera MD 06/16 08/06 1620 Signed By: 07/07/24 1621 [facility]02-23-[address] [address] Hospitalist Progress Note Signed Patient: Mary Mcadams MR#: [id number] : 1955 Acct:[id number] Age/Sex: 68 / M Adm Date: 5 Loc: 3T Room: [address] [place] [address] Type: ADM IN Attending Dr: Ambrose Hsieh [...] spray 07/04/24 09:00 07/07/24 08:55 Fluticasone Propionate Spraggs 120 Spraggs/16 Gm Bottle INTRANASAL 07/04/25 08:59 1 spray [...] MD 07/07/24 1016 Signed By: 07/07/24 1456 [facility]02-22-2025 Progress note Author Andres Herrera [facility] Note Date/Time July 06, 2024 4:37pm [facility] [address] [place] [address] Cardiology Progress Note Signed Patient: Mary Mcadams MR#: [id number] : 1955 Acct:[id number] Age/Sex: 68 / M Adm Date: 5 Loc: 3T Room: [address] [place] [address] Type: ADM IN Attending Dr: Ambrose Hsieh [...] Start Tikosyn 125 mcg BID. Plan to montior inhouse for 5-6 doses. 2?continue other home medications 3-continuous telemetry. Documented By: Andres Herrera MD 06/16 Signed By: <Electronically signed by Andres Herrera MD> 07/06/241636 [facility] Work Phone: [phone]) 814-111602-22-2025 [place] [address] Cardiology Progress Note Signed Patient: Mary Mcadams MR#: [id number] : 1955 Acct:[id number] Age/Sex: 68 / M Adm Date: 5 Loc: 3T Room: [address] [place] [address] Type: ADM IN Attending Dr: Ambrose Hsieh [...] Start Tikosyn 125 mcg BID. Plan to montior inhouse for 5-6 doses. 2?continue other home medications 3-continuous telemetry. Documented By: Andres Herrera MD 06/16 Signed By: 07/06/24 1637 [facility]02-22-2025 Progress note Author Ambrose Hsieh [facility] Note Date/Time July 06, 2024 12:20pm [facility] [address] [place] [address] Hospitalist Progress Note Signed with Addenda Patient: Mary Mcadams MR#: [id number] : 1955 Acct:[id number] Age/Sex: 68 / M Adm Date: 5 Loc: 3T Room: [address] [place] [address] Type: ADM IN Attending Dr: Ambrose Hsieh [...] spray 07/04/24 09:00 07/06/24 09:33 Fluticasone Propionate Spraggs 120 Spraggs/16 Gm Bottle INTRANASAL 07/04/25 08:59 1 spray [...] Ambrose Hsieh MD 07/06/24 1208 Signed By: <Electronically signed by Ambrose Hsieh MD> 07/06/24 1217 [facility] Work Phone: 1(954) 173-443902-22-[address] [address] Hospitalist Progress Note Signed with Juvencio Patient: Mary Mcadams MR#: [id number] : 1955 Acct:[id number] Age/Sex: 68 / M Adm Date: 5 Loc: 3T Room: [address] [place] [address] Type: ADM IN Attending Dr: Ambrose Hsieh [...] patient. Addendum Documented By: Ambrose Hsieh MD 07/06/241219 Addendum Signed By: 07/06/241219 Date of Service: 07/06/2024 Subjective Subjective Narrative: [...] spray 07/04/24 09:00 07/06/24 09:33 Fluticasone Propionate Spraggs 120 Spraggs/16 Gm Bottle INTRANASAL 07/04/25 08:59 1 spray [...] MD 07/06/24 1208 Signed By: 07/06/24 1217 [facility]02-21-2025 Consult note Author Shannon Gonzalez [facility] Note Date/Time July 05, 2024 4:56pm [facility] [address] [place] [address] Cardiology Consult Note Signed Patient: Mary Mcadams MR#: [id number] : 1955 Acct:[id number] Age/Sex: 68 / M Adm Date: 5 Loc: 3T Room: [address] [place] [address] Type: ADM IN Attending Dr: Ambrose Hsieh MD Copies to: DO Shannon Waller MD, FACC Ambrose Hsieh MD~ Cardiology HPI History of [...] 11 point review of system essentially unremarkable. [facility] Medical History Hypotension Hypokalemia Encephalopathy Carotid stenosis, [...] home medications Documented By: Shannon Gonzalez MD, [facility] 5 1647 Signed By: <Electronically signed by MD POOL Gonzalez> 07/05/24 1656 [facility] Work Phone: 1(859) 860-596402-21-2025 Progress note Author Ambrose Hsieh [facility] Note Date/Time July 05, 2024 3:42pm [facility] [address] [place] [address] Hospitalist Progress Note Signed Patient: Mary Mcadams MR#: [id number] : 1955 Acct:[id number] Age/Sex: 68 / M Adm Date: 5 Loc: 3T Room: [address] [place] [address] Type: ADM IN Attending Dr: Ambrose Hsieh [...] spray 07/04/24 09:00 07/05/24 09:20 Fluticasone Propionate Spraggs 120 Spraggs/16 Gm Bottle INTRANASAL 07/04/25 08:59 1 spray [...] agreeable. Documented By: Ambrose Hsieh MD 07/05/24 1042 Signed By: <Electronically signed by Ambrose Hsieh MD> 07/05/24 2338 [facility] Work Phone: 1(963) 488-956302-21-2025 [place] [address] Cardiology Consult Note Signed Patient: Mary Mcadams MR#: [id number] : 1955 Acct:[id number] Age/Sex: 68 / M Adm Date: 5 Loc: 3T Room: [address] [place] [address] Type: ADM IN Attending Dr: Ambrose Hsieh MD Copies to: DO Shannon Waller MD, [facility] Ambrose Hsieh MD~ Cardiology HPI History of [...] 11 point review of system essentially unremarkable. [facility] Medical History Hypotension Hypokalemia Encephalopathy Carotid stenosis, [...] home medications Documented By: Shannon Gonzalez MD, [facility] 5 1647 Signed By: 07/05/24 1656 [facility]02-21-2025 [place] [address] Hospitalist Progress Note Signed Patient: Mary Mcadams MR#: [id number] : 1955 Acct:[id number] Age/Sex: 68 / M Adm Date: 5 Loc: 3T Room: [address] [place] [address] Type: ADM IN Attending Dr: Ambrose Hsieh [...] spray 07/04/24 09:00 07/05/24 09:20 Fluticasone Propionate Spraggs 120 Spraggs/16 Gm Bottle INTRANASAL 07/04/25 08:59 1 spray [...] MD 07/05/24 1043 Signed By: 07/05/24 1542 [facility]02-20-2025 Progress note Author Ambrose Hsieh [facility] Note Date/Time July 04, 2024 3:43pm [facility] [address] [place] [address] Hospitalist Progress Note Signed Patient: Mary Mcadams MR#: [id number] : 1955 Acct:[id number] Age/Sex: 68 / M Adm Date: 5 Loc: 3T Room: [address] [place] [address] Type: ADM IN Attending Dr: Ambrose Hsieh [...] spray 07/04/24 09:00 07/04/24 09:28 Fluticasone Propionate Spraggs 120 Spraggs/16 Gm Bottle INTRANASAL 07/04/25 08:59 Not Given DAILY ALEX Lactated Ringer's 1,000 mls @ 75 mls/hr 07/03/24 23:15 07/03/24 23:54 Lactated Ringers IV 07/04/24 12:34 75 mls/hr .[id number] ALEX Administration Ceftriaxone Sodium 1 gm in [...] Tablet.Dr PO 07/04/25 07:29 40 mg DAILY.AC.BKFAST AELX Administration Potassium Chloride 10 meq 07/04/24 09:00 [...] signed by Ambrose Hsieh MD> 07/04/24 1543 [facility] Work Phone: 1(653) 669-903302-20-[address] [address] Hospitalist Progress Note Signed Patient: Mary Mcadams MR#: [id number] : 1955 Acct:[id number] Age/Sex: 68 / M Adm Date: 5 Loc: 3T Room: [address] [place] [address] Type: ADM IN Attending Dr: Ambrose Hsieh [...] spray 07/04/24 09:00 07/04/24 09:28 Fluticasone Propionate Spraggs 120 Spraggs/16 Gm Bottle INTRANASAL 07/04/25 08:59 Not Given DAILY ALEX Lactated Ringer's 1,000 mls @ 75 mls/hr 07/03/24 23:15 07/03/24 23:54 Lactated Ringers IV 07/04/24 12:34 75 mls/hr .[id number] ALEX Administration Ceftriaxone Sodium 1 gm in [...] MD 07/04/24 1015 Signed By: 07/04/24 1543 [facility]02-20-2025 History and physical note Author Maricruz Godoy [facility] Note Date/Time July 04, 2024 6:43am [facility] [address] [place] [address] Hospitalist H&P Signed Patient: Mary Mcadams MR#: [id number] : 1955 Acct:[id number] Age/Sex: 68 / M Adm Date: 5 Loc: Room: [address] [place] [address] Type: ADM IN Attending Dr: Altaf Jones MD Copies to: MD Adam Carballo DO Paula G Smith, STEAM CONDITIONING OPERATOR~ HPI DATE OF EXAMINATION: 07/03/24 CHIEF COMPLAINT: [...] He will be admitted as inpatient to MedSurg daily for pain Review of Systems Review of Systems Review of systems: A 10 point review of systems was obtained, negative unless noted in the HPI or below. [facility] Medical History Hypotension Hypokalemia Encephalopathy Carotid stenosis, [...] % (Auto) 12.4 % (.) 07/03/24 19:45 Kerr % (Auto) 9.9 % (.) 07/03/24 19:45 Eos % (Auto) 2.7 % (.) 07/03/24 19:45 Baso % (Auto) 0.7 % (.) 07/03/24 19:45 Nucleat RBC Rel Count 0.0 /100 WBC (0-0.5) 07/03/24 19:45 Neut # (Auto) 4.3 x10E3/uL (1.8-7.7) 07/03/24 19:45 Lymph # (Auto) 0.7 x10E3/uL (1.00-4.8) L 07/03/24 19:45 Kerr # (Auto) 0.6 x10E3/uL (0.0-0.8) 07/03/24 19:45 [...] signed by Altaf Jones MD> 07/04/24 0643 [facility] Work Phone: 1(228) 320-911402-20-[address] [facility] [place] [address] Ultrasound Report Signed Patient: Mary Mcadams MR#: [id number] : 1955 Acct:[id number] Age/Sex: 68 / M ADM Date: 5 Loc: Room: [address] [place] [address] Type: ADM IN Attending Dr: Ambrose Hsieh [...] Baudilio Moura MD07/04/2024 8:38 AM Dictation Location: [place] [address] Tech: Melanie Garcia Transcribed By: JEANIE 07/04/24837 Dictated By: Baudilio Moura MD 07/04/24837 Signed By: 07/04/24837 [facility] Work Phone: 1([phone]) 884-363802-20-2025 [place] [address] Hospitalist Procedure Note Signed Patient: Mary Mcadams MR#: [id number] : 1955 Acct:[id number] Age/Sex: 68 / M Adm Date: 5 Loc: 3T Room: [address] [place] [address] Type: ADM IN Attending Dr: Altaf Jones MD Copies to: MD Adam Carballo DO~ Hospitalist Procedures Date/Provider PROCEDURE DATE: 07/04/24 PROCEDURE PERFORMED BY: Altaf Jones [facility] Procedure Indication: Urinary retention Procedure performed: [place] [...] MD 07/04/24 0652 Signed By: 07/04/24 0655 [facility]02-20-2025 History and physical [place] [id number] Hospitalist H&P Signed Patient: Mary Mcadams MR#: [id number] : 1955 Acct:[id number] Age/Sex: 68 / M Adm Date: 5 Loc: 3T Room: [address] [place] [address] Type: ADM IN Attending Dr: Altaf Jones MD Copies to: MD Adam Carballo DO Paula G Smith, APRN~ HPI DATE OF EXAMINATION: 07/03/24 CHIEF COMPLAINT: [...] with his medications, he [facility] and his son usually fills his [...] He will be admitted as inpatient to [facility] daily for pain Review of Systems Review of Systems Review of systems: A 10 point review of systems was obtained, negative unless noted in the HPI or below. [facility] Medical History Hypotension Hypokalemia Encephalopathy Carotid stenosis, [...] % (Auto) 12.4 % (.) 07/03/24 19:45 Kerr % (Auto) 9.9 % (.) 07/03/24:45 Eos % (Auto) 2.7 % (.) 07/03/24 19:45 Baso % (Auto) 0.7 % (.) 07/03/24 19:45 Nucleat RBC Rel Count 0.0 /100 WBC (0-0.5) 07/03/24 19:45 Neut # (Auto) 4.3 x10E3/uL (1.8-7.7) 07/03/24 19:45 Lymph # (Auto) 0.7 x10E3/uL (1.00-4.8) L 07/03/24 19:45 Kerr # (Auto) 0.6 x10E3/uL (0.0-0.8) 07/03/24 19:45 Eos # (Auto) 0.2 x10E3/uL (0.0-0.45) 07/03/24:45 Baso # (Auto) 0.0 x10E3/uL (0.0-0.2) 07/03/24 [...] (# of days): 3 Documented By: Maricruz Godoy, STEAM CONDITIONING OPERATOR 07/03/24 2323 Signed By: 07/04/24 0415 07/04/24 0643 [facility]02-20-2025 Evaluation note* Diagnosis Onset Date Resolution Status Admit Date Abnormal QT interval present on electrocardiogram resolved July 03, 2024 10:39pm Acute UTI resolved July 03, 2024 10:39pm Altered mental status resolved Jun ruary 2024 10:39pm Compression fracture of body [...] of lung resolved September 02, 2024 2:26pm [facility] Work Phone: 1(205) 345-334202-19-2025 [facility] [place] [address] [place] [address] CT Scan Report Signed Patient: Mary Mcadams MR#: [id number] : 1955 Acct:[id number] Age/Sex: 68 / M ADM Date: 5 Loc: 3T Room: [address] [place] [address] Type: ADM IN Attending Dr: Altaf Jones [...] Juliocesar Varela M.D.07/03/2024 10:59 PM Dictation Location: [place] [address] Transcribed By: [facility] 07/03/242258 Dictated By: Juliocesar Varela II, MD 07/03/242252 Signed By: 07/03/242258 [facility] Work Phone: 1(653) 466-881602-19-[address] [facility] [place] [address] [place] [address] CT Scan Report Signed Patient: Mary Mcadams MR#: [id number] : 1955 Acct:[id number] Age/Sex: 68 / M ADM Date: 5 [...] Juliocesar Varela M.D.07/03/2024 9:23 PM Dictation Location: [facility]-- Transcribed By: JEANIE 07/03/242122 Dictated By: Juliocesar Varela II, MD 07/03/242108 Signed By: 07/03/242122 [facility] Work Phone: 1(795) 870-602302-19-[address] [facility] [place] [address] [place] [address] CT Scan Report Signed Patient: Mary Mcadams MR#: [id number] : 1955 Acct:[id number] Age/Sex: 68 / M ADM Date: 5 [...] Juliocesar Varela M.D.07/03/2024 9:09 PM Dictation Location: [facility]--17 Transcribed By: JEANIE 07/03/242108 Dictated By: Juliocesar Varela II, MD 07/03/242103 Signed By: 07/03/242108 [facility] Work Phone: 1(684) 425-593001-10-2025 History of Present illness Narrative* Sahnnon Gonzalez MD - 05/24/2024 1:10 PM EST [...] inhaler, Inhale 1 puff., Disp: , Rfl: wkewudymolu-uggyzlrab-sqbpuhzz (TRELEGY-ELLIPTA) 200-62.5-25 mcg blister with device, Serfbqwgcoc-Veutfnfbk-Lxlcokks (Trelegy Ellipta) 200-62.5-25 mcg blister with device [...] Scribe Attestation By signing my name below, I Beverley RobertsonNiecy SOTO , Scribe attest that [...] exam, discussion and plan. [facility] Work Phone: 1(357) 278-372301-10-2025 Instructions* Patient Instructions* Harriet Gibson LPN - [...] time of your visit. [facility] Work Phone: [phone] 880-180212-18-2024 Evaluation note* Diagnosis Onset Date Resolution Status Admit Date Altered mental status acute Dec emb2023 10:49am Hypotension acute June 03, 2024 2:25pm Rectal bleeding acute May 162024 2:25pm Atrial fibrillation resolved 2024 2:25pm Chronic HFrEF (heart failure with reduced ejection fraction) resolved June 03 2:25pm Nonischemic cardiomyopathy resolved June 03, 2024 2:25pm Sarcoidosis of lung resolved 2024 2:25pm Altered mental status acute Feb [facility] 2024 10:39pm Compression fracture of body of thoracic vertebra acute July 032024 10:39pm Fall acute July 03, 2024 10:39pm Weakness acute July 03, 2024 10:39pm [facility] Work Phone: 1([phone] Evaluation note* Diagnosis Onset Date Resolution Status [...] 2024 10:39pm Altered mental status acute Feb 2024 10:39pm Compression fracture of body of thoracic vertebra acute July 03, 2024 10:39pm Fall acute July 03, 2024 10:39pm Pulmonary sarcoidosis acute [facility] 2024 10:39pm UTI (urinary tract infection) acute July 03, 2024 10:39pm Weakness acute July 03, 2024 10:39pm [facility] Work Phone: 1([phone] 931-843712-18-2024 Evaluation note* Diagnosis Onset Date Resolution Status [...] 03, 2024 10:39pm Pulmonary sarcoidosis acute Feb [place] 2024 10:39pm UTI (urinary tract infection) acute July 03, 2024 10:39pm Weakness acute July 03, 2024 10:39pm Cardiac sarcoidosis acute July 15, 2024 2:55pm History of aspergilloma acute M 2024 2:55pm Bullous emphysema resolved July 152024 2:55pm Chronic respiratory failure with hypoxia resolved July 15, 2024 2:55pm Pulmonary sarcoidosis resolved Jul 2:55pm [facility] Work Phone: 1([phone]) 202-491511-13-2024 History of Present illness Narrative* Shannon Gonzalez [...] to be placed on dofetilide with successful mu-ism of sinus rhythm during his last admission [...] inhaler, Inhale 1 puff., Disp: , Rfl: azctxynkuse-ftdwhdizw-cdgrdben (TRELEGY-ELLIPTA) 200-62.5-25 mcg blister with device, Shbdrfftdsc-Ymfanlakz-Lhljuheq (Trelegy Ellipta) 200-62.5-25 mcg blister with device [...] exam, discussion and plan. documented in this [facility] Work Phone: 1(866) 902-473511-13-2024 Instructions* Patient Instructions* Kassidy Waggoner RN - [...] in 4 months Labs documented in this [facility] Work Phone: 1(643) 405-603211-06-2024 Progress note Author Altaf Jones [facility] March 20, 2024 1:34pm Note Date/Time March 20, 2024 1 :34pm [facility] [address] [place] [address] Hospitalist Progress Note Signed Patient: Mary Mcadams MR#: [id number] : 1955 Acct:[id number] Age/Sex: 68 / M Adm Date: 4 Loc: Room: [address] [place] [address] Type: ADM IN Attending Dr: Altaf Jones [...] spray 03/14/24 09:00 03/20/24 08:58 Fluticasone Propionate Spraggs 120 Spraggs/16 Gm Bottle INTRANASAL 03/14/25 08:59 1 spray [...] 03/14/24 07:30 03/20/24 08:57 Pantoprazole 40 Mg Tablet. PO 03/14/25 07:29 40 mg DAILY.AC.BKFAST ALEX [...] <Electronically signed by Altaf Jones MD> 03/20/241333 [facility] Work Phone: 1([phone]) 145-271011-05-2024 Progress note Author Shannon Gonzalez [facility] March 19, 2024 4:51pm Note Date/Time March 19, 2024 4 :51pm [facility] [address] [place] [address] Cardiology Progress Note Signed Patient: Mary Mcadams MR#: [id number] : 1955 Acct:[id number] Age/Sex: 68 / M Adm Date: 4 Loc: 4P Room: [address] [place] [address] Type: ADM IN Attending Dr: Altaf Jones [...] heart diseases Documented By: Shannon Gonzalez MD, [facility] 4 1649 Signed By: <Electronically signed by [facility] Shannon Gonzalez> 03/19/24 1651 [facility] Work Phone: 1(773) 801-197511-04-2024 Progress note Author Altaf Jones [facility] March 18, 2024 5:47pm Note Date/Time March 18, 2024 5 :47pm [facility] [address] [place] [address] Hospitalist Progress Note Signed Patient: Mary Mcadams MR#: [id number] : 1955 Acct:[id number] Age/Sex: 68 / M Adm Date: 4 Loc: Room: [address] [place] [address] Type: ADM IN Attending Dr: Altaf Jones [...] of care and confirmed it with the resident/student/[employer]. Patient is feeling well. No complaints with [...] spray 03/14/24 09:00 03/18/24 08:48 Fluticasone Propionate Spraggs 120 Spraggs/16 Gm Bottle INTRANASAL 03/14/25 08:59 1 spray [...] 03/18/24 08:47 Thiamine 100 Mg Tablet PO 03/14/25 08:59 [...] . Documented By: Altaf Jones MD 03/18/24 1710 Signed By: <Electronically signed by Altaf Jones MD> 03/18/24 8999 [facility] Work Phone: 1(258) 319-868911-04-2024 Progress note Author Shannon Gonzalez [facility] March 18, 2024 11:06am Note Date/Time March 18, 2024 1 1:07am [facility] [address] [place] [address] Cardiology Progress Note Signed Patient: Mary Mcadams MR#: [id number] : 1955 Acct:[id number] Age/Sex: 68 / M Adm Date: 4 Loc: Room: [address] [place] [address] Type: ADM IN Attending Dr: Altaf Jones [...] heart diseases Documented By: Shannon Gonzalez MD, [facility] 4 1104 Signed By: <Electronically signed by MD POOL Gonzalez> 03/18/24 1106 [facility] Work Phone: 1(370) 784-218211-04-2024 Progress note Author Lula Muniz [facility] March 18, 2024 7:24am Note Date/Time March 15, 2024 1 2:17pm [facility] [address] [place] [address] Vascular Surgery Progress Note Signed Patient: Mary Mcadams MR#: [id number] : 1955 Acct:[id number] Age/Sex: 68 / M Adm Date: 4 Loc: Room: [address] [place] [address] Type: ADM IN Attending Dr: Altaf Jones [...] <Electronically signed by Baudilio Moura MD> 03/15/24 8628 [facility] Work Phone: 1([phone]) 753-719211-03-2024 Progress note Author Andres Herrera [facility] March 17, 2024 1:58pm Note Date/Time March 17, 2024 1 :59pm [facility] [address] [place] [address] Cardiology Progress Note Signed Patient: Mary Mcadams MR#: [id number] : 1955 Acct:[id number] Age/Sex: 68 / M Adm Date: 4 Loc: 4P Room: [address] [place] [address] Type: ADM IN Attending Dr: Altaf Jones [...] <Electronically signed by Andres Herrera MD> 03/17/24 [facility] Work Phone: 1(113) 198-330211-03-2024 Progress note Author Altaf Jones [facility] March 17, 2024 10:48am Note Date/Time March 17, 2024 1 0:48am [facility] [address] [place] [address] Hospitalist Progress Note Signed Patient: Mary Mcadams MR#: [id number] : 1955 Acct:[id number] Age/Sex: 68 / M Adm Date: 4 Loc: Room: [address] [place] [address] Type: ADM IN Attending Dr: Altaf Jones [...] spray 03/14/24 09:00 03/17/24 08:53 Fluticasone Propionate Spraggs 120 Spraggs/16 Gm Bottle INTRANASAL 03/14/25 08:59 1 spray [...] Tablet PO 03/14/25 08:59 100 mg BID ALXE Administration Tramadol HCl 50 mg 03/13/24 21:06 [...] By: <Electronically signed by Altaf Jones MD> 03/17/24 1044 [facility] Work Phone: 1(232) 346-235211-02-2024 Progress note Author Andres Herrera [facility] March 16, 2024 4:19pm Note Date/Time March 16, 2024 4 :19pm [facility] [address] [place] [address] Cardiology Progress Note Signed Patient: Mary Mcadams MR#: [id number] : 1955 Acct:[id number] Age/Sex: 68 / M Adm Date: 4 Loc: Room: [address] [place] [address] Type: ADM IN Attending Dr: Altaf Jones [...] By: <Electronically signed by Andres Herrera MD> 03/16/245 [facility] Work Phone: 1([phone]) 954-166511-02-2024 Progress note Author Altaf Jones [facility] March 16, 2024 12:43pm Note Date/Time March 16, 2024 1 2:42pm [facility] [address] [place] [address] Hospitalist Progress Note Signed Patient: Mary Mcadams MR#: [id number] : 1955 Acct:[id number] Age/Sex: 68 / M Adm Date: 4 Loc: Room: [address] [place] [address] Type: ADM IN Attending Dr: Altaf Jones [...] 03/14/24 09:00 03/16/24 08:57 Aspirin 81 Mg Tablet.Dr PO 03/14/25 08:59 81 mg DAILY ALEX Administration Atorvastatin Calcium 40 mg 03/14/24 21:00 03/15/24 21:49 Atorvastatin 40 Mg Tablet PO 03/14/25 20:59 40 mg QPM ALEX Administration Bisacodyl 10 mg 03/14/24 02:07 03/15/24 04:58 Bisacodyl 5 Mg Tablet.Dr PO 03/14/25 02:06 10 mg DAILY PRN [...] spray 03/14/24 09:00 03/16/24 08:59 Fluticasone Propionate Spraggs 120 Spraggs/16 Gm Bottle INTRANASAL 03/14/25 08:59 1 spray [...] signed by Altaf Jones MD> 03/16/24 1243 [facility] Work Phone: 1([phone]) 219-686011-01-2024 Consult note Author Shannon Gonzalez [facility] March 15, 2024 4:27pm Note Date/Time March 15, 2024 4 :26pm [facility] [address] [place] [address] Cardiology Consult Note Signed Patient: Mary Mcadams MR#: [id number] : 1955 Acct:[id number] Age/Sex: 68 / M Adm Date: 4 Loc: Room: [address] [place] [address] Type: ADM IN Attending Dr: Altaf Jones MD Copies to: MD Adam Carballo DO Hassan M Ibrahim, MD, FACC~ Cardiology HPI History of Present [...] for 2 months. The patient presented to [facility]'s emergency department yesterday with altered mental status [...] his imaging studies in the ER at [facility]. He was seen by vascular surgery and they recommended medical therapy since the patient is asymptomatic. Antiplatelet therapy and statin therapy have been initiated. Neurology had seen the patient and they simply concurred with medical therapy. Review of Systems Review of Systems Review of systems: All other review of system essentially unremarkable or covered in [facility] Medical History Carotid stenosis, right [...] heart diseases Documented By: Shannon Gonzalez MD, [facility] 1617 Signed By: <Electronically signed by [facility] Shannon Gonzalez> 03/15/24 1623 [facility] Work Phone: 1(363) 102-980211-01-2024 Consult note Author Gutierrez Jo [facility] March 15, 2024 2:56pm Note Date/Time March 15, 2024 2 :10pm [facility] [address] [place] [address] Physiatry (Rehab) Consult Note Signed Patient: Mary Mcadams MR#: [id number] : 1955 Acct:[id number] Age/Sex: 68 / M Adm Date: 4 Loc: Room: [address] [place] [address] Type: ADM IN Attending Dr: Altaf Jones [...] cardiomyopathy, and daily alcohol use presented to [facility] emergency room for altered mental status and chest pain due to acute encephalopathy on 03/13/2024 and [facility] Patient reported that he had not [...] evaluated the patient. Recommendations are for a correction facility at this time. Patient stated that his baseline was notably better when compared to how he is currently. Patient stated that he was independent before his hospitalization and is interested in therapy whether it is inpatient or outpatient. Review of Systems Review of Systems All other systems reviewed & are negative unless noted below or in HPI [facility] Medical History Carotid stenosis, right [...] cardiomyopathy, and daily alcohol use presented to [facility] emergency room for altered mental status and chest pain due to acute encephalopathy on 03/13/2024 and [facility] -A correction facility would be the most appropriate option for patient; patient is agreeable to this. -Patient currently below his normal baseline and has comorbidities that further accentuate problems with mobility and performing ADLs. Patient was personally seen by me, Dr. Jo, on the day of encounter, reviewed the history and the relevant portions of the chart, including current orders, allied health and windows consultant notes, labs/imaging and performed gracia elements of exam and I formulated the plan of care and facilitated the medical decision making. I completed a substantive portion of this encounter, the medical decision makingportion of this note in its entirety, including Allied health note review, nursing note review, windows consultant note review, discussion with nursing and case management, and more than 50% of my time was spent on counseling and coordination of care, time spent 60 minutes Documented By: Gutierrez Jo MD 1341 Signed By: <Electronically signed by Gutierrez Jo MD> 03/15/24 8146 [facility] Work Phone: 1(268) 115-546211-01-2024 Progress note Author Eriberto Stover [facility] March 15, 2024 2:40pm Note Date/Time March 15, 2024 2 :40pm [facility] [address] [place] [address] Neurology Progress Note Signed Patient: Mary Mcadams MR#: [id number] : 1955 Acct:[id number] Age/Sex: 68 / M Adm Date: 4 Loc: 4P Room: [address] [place] [address] Type: ADM IN Attending Dr: Altaf Jones [...] Therapy Recommendations: OT Recommendations OT Recommended Discharge Penitentiary Facility,Inpatient Rehab Unit Location OT Recommended Services at Physical Therapy,Occupational Therapy Discharge PT Recommendations PT Recommended Discharge Penitentiary Facility,Inpatient Rehab Unit Location PT Recommended Services [...] Affect normal. Patient is alert. Oriented to [facility] and March and 2023. Attention seems [...] <Electronically signed by Eriberto Stover DO> 03/15/24 1448 [facility] Work Phone: 1([phone]) 679-479311-01-2024 Consult note Author Baudilio Moura [facility] March 15, 2024 2:05pm Note Date/Time March 14, 2024 8 :44am [facility] [address] [place] [address] Vascular Surgery Consult Note Signed Patient: Mary Mcadams MR#: [id number] : 1955 Acct:[id number] Age/Sex: 68 / M Adm Date: 4 Loc: Room: [address] [place] [address] Type: ADM IN Attending Dr: Altaf Jones MD Copies to: MD Adam Carballo DO Jackie R Ruttino, APRN Matthew T Langenberg, MD~ HPI Consult HPI Reason for consult: ICA stenosis History of present illness: Mr. Mcadams is a 68-year-old male with medical history to include A- fib, sarcoidosis, hypertension, systolic heart failure, cardiomyopathy, and alcohol abuse transferred here from the [facility] for altered mental status. Reportedly the [...] earlier in the day. During workup through [facility] a CTA of the head and [...] negative unless noted below or in HPI [facility] Medical History Carotid stenosis, right [...] % (Auto) 76.4 Lymph % (Auto) 8.5 Kerr % (Auto) 11.6 Eos % (Auto) 2.3 Baso % (Auto) 1.2 Nucleat RBC Rel Count 0.1 Neut # (Auto) 6.0 Lymph # (Auto) 0.7 L Kerr # (Auto) 0.9 H Eos # (Auto) 0.2 Baso # (Auto) 0.1 PHA Creatinine Clear 88.87 Sodium 134 L Potassium 4.0 Chloride 101 Carbon Dioxide 26.0 Anion Gap 11.0 BUN 12 Creatinine 0.71 Est GFR (CKD-EPI) > 60.0 Glucose 96 Calcium 8.4 L Magnesium 1.8 L Urine Color Yellow Urine Appearance Clear Urine pH 5.5 Ur Specific [place] 1.046 H Urine Protein 70 H Urine [...] of the head and neck obtained in [facility]. I did order ultrasound for additional modality [...] <Electronically signed by Baudilio Moura MD> 03/15/24 1403 [facility] Work Phone: 1(361) 538-181311-01-2024 Progress note Author Altaf Jones [facility] March 15, 2024 12:33pm Note Date/Time March 15, 2024 1 2:32pm [facility] [address] [place] [address] Hospitalist Progress Note Signed Patient: Mary Mcadams MR#: [id number] : 1955 Acct:[id number] Age/Sex: 68 / M Adm Date: 4 Loc: 4 Room: [address] [place] [address] Type: ADM IN Attending Dr: Altaf Jones MD Copies to: ~ Date of Service: 03/15/2024 Subjective Subjective Narrative: Patient is awake alert oriented x 3. Respiratory distress today. Lungs are clear today. Heart is regular, no gallop or JVD Abdomen soft benign Neurological as noted. No evidence of focal neurological deficit Assessment and plan 1. Acute decompensated CHF. Responded well to diuretic therapy. Mjrrd-ni-onyd ultrasound shows improvement in LVEF. Canceled limited [...] spray 03/14/24 09:00 03/15/24 09:41 Fluticasone Propionate Spraggs 120 Spraggs/16 Gm Bottle INTRANASAL 03/14/25 08:59 Not Given [...] 03/14/24 07:30 03/15/24 09:33 Pantoprazole 40 Mg Tablet. PO 03/14/25 07:29 40 mg DAILY.AC.BKFAST ALEX [...] signed by Altaf Jones MD> 03/15/24 1233 [facility] Work Phone: 1([phone]) 127-162210-31-2024 Consult note Author Eriberto Stover [facility] March 14, 2024 2:34pm Note Date/Time March 14, 2024 1 :09pm [facility] [address] [place] [address] Neurology Consult Note Signed Patient: Mary Mcadams MR#: [id number] : 1955 Acct:[id number] Age/Sex: 68 / M Adm Date: 4 Loc: Room: [address] [place] [address] Type: ADM IN Attending Dr: Altaf Jones MD Copies to: DO Altaf Morton MD Benjamin Ball, DO~ HPI Consult Date: 03/14/24 Community Health Education Coordinator: Eriberto Stover DO [facility] Medical History Carotid stenosis, right [...] Grupo Chen M.D.03/13/2024 11:57 PM Dictation Location: [place] [address] Therapy Recommendations Therapy Recommendations: OT Recommendations OT Recommended Discharge Penitentiary Facility,Inpatient Rehab Unit Location OT Recommended Services at Physical Therapy,Occupational Therapy Discharge PT Recommendations PT Recommended Discharge Penitentiary Facility,Inpatient Rehab Unit Location PT Recommended Services [...] Affect normal. Patient is alert. Oriented to [facility] and February. Attention seems only minimally impaired. Speech is [...] <Electronically signed by Eriberto Stover DO> 03/14/24 6971 [facility] Work Phone: 1([phone]) 561-944110-31-2024 Progress note Author Altaf Jones [facility] March 14, 2024 1:29pm Note Date/Time March 14, 2024 1 :27pm [facility] [address] [place] [address] Hospitalist Progress Note Signed Patient: Mary Mcadams MR#: [id number] : 1955 Acct:[id number] Age/Sex: 68 / M Adm Date: 4 Loc: Room: [address] [place] [address] Type: ADM IN Attending Dr: Altaf Jones MD Copies to: ~ Date of Service: 03/14/2024 Subjective Subjective Narrative: Patient is awake alert oriented x 3. He appears in mild respiratory distress. On examination expiratory wheezes audible bilaterally. JVD present bilaterally. Bbugz-vn-brhs ultrasound is notable for decreased ejection fraction [...] spray 03/14/24 09:00 03/14/24 10:36 Fluticasone Propionate Spraggs 120 Spraggs/16 Gm Bottle INTRANASAL 03/14/25 08:59 1 spray [...] STATUS?full code Documented By: Altaf Jones MD 03/14/241323 Signed By: <Electronically signed by Altaf Jones MD> 03/14/24 132 [facility] Work Phone: 1(887) 786-513010-31-2024 History and physical note Author Gabriela Nobles [facility] March 14, 2024 4:28am Note Date/Time March 13, 2024 9 :16pm [facility] [address] [place] [address] Hospitalist H&P Signed Patient: Mary Mcadams MR#: [id number] : 1955 Acct:[id number] Age/Sex: 68 / M Adm Date: 4 Loc: 4 Room: [id number] Type: ADM IN Attending Dr: Gabriela Nobles MD Copies to: DO Gabriela Waller MD Paula G Smith, STEAM CONDITIONING OPERATOR~ HPI DATE OF EXAMINATION: 03/13/24 CHIEF COMPLAINT: altered mental status HISTORY OF PRESENT ILLNESS: Mr. Mcadams is a 68-year-old male with a PMH of A-fib, pulmonary sarcoidosis, HTN, systolic heart failure?last EF 45 to 50%, nonischemic cardiomyopathy, dailyalcohol use?last monday the presented to [facility] emergency room for altered mental status. [...] awake this morning while she was there. [facility] chart review?EMS was dispatched to the patient's house for chest pains, upon arrival and found patient sitting on couch groaning loudly. EMS reports son was present and reported making the patient's stop drinking last due to ongoing cardiac issues. Note states patient was oriented but could not remain focused, EKG shows A-fib. Upon arrival to [facility] emergency room patient was alert and [...] 3. He received 1 L saline bolus, IA 20 mg Tylenol. Transferred here to [facility] under the care of the hospitalist team. Review of Systems Review of Systems Review of systems: A 10 point review of systems was obtained, negative unless noted in the HPI or below. [facility] Medical History (Updated 03/13/24 @ 23:04 by [...] mg tablet (Entresto) 1 tab PO BID 12/28/18 [History Confirmed 03/08/24] albuterol sulfate 2.5 mg/3 [...] signed by Gabriela Nobles MD> 03/14/24 0428 [facility] Work Phone: 1([phone]) 190-957010-25-2024 Evaluation note* Diagnosis Onset Date Resolution Status [...] resolved March 13 8:27pm Encephalopathy acute resolved Octo cyn 2023 8:27pm Hypertension resolved February 8:27pm Mild [...] 2:25pm Sarcoidosis of lung resolved 2024 2:25pm [facility] Work Phone: 1(884) 303-380210-18-2024 Discharge summary Author Altaf Jones [facility] March 01, 2024 12:16pm Note Date/Time March 01, 2024 1 2:12pm [facility] [address] [place] [address] Discharge Summary Signed Patient: Mary Mcadams MR#: [id number] : 1955 Acct:[id number] Age/Sex: 68 / M Adm Date: 4 Loc: Room: [address] [place] [address]: Altaf Jones MD Copies to: MD Adam Carballo,DO~ Providers Date of Discharge: 03/01/24 Discharging Provider: Altaf Jones Primary Care Provider: Adam Del Valle Consults: 02/29/24 00:15 Consult to Cardiology Routine Comment: Consulting Provider: [facility], [facility] Reason For Exam: chf Has Provider [...] Plan Discharge Plan Patient Disposition: Home Health [facility] Activity: No Activity Restriction Diet: Low-Sodium Additional [...] at HS and napping DME [facility] Ellipta 200-62.5-25 mcg blister with device [...] time, please call to reschedule if needed.) Samsa,Issa P, DO [Active Staff] - 04/22/24 3:00 pm [...] signed by Altaf Jones MD> 03/01/24 1216 [facility] Work Phone: 1([phone]) 462-430210-18-2024 [facility] 01, 2024 9:53am Note Date/Time March 01, 2024 9 :53am [facility] [address] [place] [address] Cardiology Progress Note Signed Patient: Mary Mcadams MR#: [id number] : 1955 Acct:[id number] Age/Sex: 68 / M Adm Date: 4 Loc: Room: [address] [place] [address] Type: ADM IN Attending Dr: Altaf Jones [...] Localized edema Documented By: Shannon Gonzalez MD, FACC 4 [id number] Signed By: <Electronically signed by FACKatheryn Gonzalez> 03/01/24 0953 [facility] Work Phone: 1(830) 919-634910-18-2024 [facility] Consult note Author Shannon Gonzalez [facility] February 29, 2024 3:45pm Note Date/Time February 29, 2024 3 :42pm [facility] [address] [place] [address] Cardiology Consult Note Signed Patient: Mary Mcadams MR#: [id number] : 1955 Acct:[id number] Age/Sex: 68 / M Adm Date: 4 Loc: Room: [address] [place] [address] Type: ADM IN Attending Dr: Altfa Jones MD Copies to: MD Adam Carballo,DO Shannon Gonzalez MD, [facility]~ Cardiology HPI History of Present Illness [...] is covered above in HPI was unremarkable [facility] Medical History (Updated 02/29/24 @ 15:44 by [...] Lymph # (Auto) 0.6 L (1.00-4.8) x10E3/uL Kerr # (Auto) 0.6 (0.0-0.8) x10E3/uL Eos # [...] Localized edema Documented By: Shannon Gonzalez MD, [facility] 4 153 Signed By: <Electronically signed by [facility] Shannon Gonzalez> 02/29/24 1545 [facility] Work Phone: 1([phone]) 363-925410-17-2024 Progress note Author Altaf Jones [facility] February 29, 2024 12:03pm Note Date/Time February 29, 2024 1 1:53am [facility] [address] [place] [address] Hospitalist Progress Note Signed Patient: Mary Mcadams MR#: [id number] : 1955 Acct:[id number] Age/Sex: 68 / M Adm Date: 4 Loc: Room: [address] [place] [address] Type: ADM IN Attending Dr: Altaf Jones [...] of care and confirmed it with the resident/student/KITCHEN LEAD. Patient, Mary Mcadams, is a 68 year [...] spray 02/29/24 09:00 02/29/24 08:49 Fluticasone Propionate Spraggs 120 Spraggs/16 Gm Bottle INTRANASAL 02/28/25 08:59 1 spray [...] . Documented By: Altaf Jones MD 02/29/24 2735 Signed By: <Electronically signed by Altaf Jones MD> 02/29/24 1207 [facility] Work Phone: 1([phone]) 135-867210-17-2024 History and physical note Author Silvano Reed [facility] February 29, 2024 1:28am Note Date/Time February 29, 2024 1 2:24am [facility] [address] [place] [address] Hospitalist H&P Signed Patient: Mary Mcadams MR#: [id number] : 1955 Acct:[id number] Age/Sex: 68 / M Adm Date: 4 Loc: Room: [address] [place] [address] Type: ADM IN Attending Dr: Silvano Reed DO Copies to: Adam Del Valle,DO Silvano Reed, DO Maricruz Godoy, STEAM CONDITIONING OPERATOR~ HPI DATE OF EXAMINATION: 02/28/24 CHIEF COMPLAINT: [...] will be admitted as inpatient to the [facility] telemetry floor. Review of Systems Review of Systems Review of systems: A 10 point review of systems was obtained, negative unless noted in the HPI or below. [facility] Medical History Alcohol dependence Afib Rectal bleeding [...] % (Auto) 9.9 % (.) 02/28/24 22:00 Kerr % (Auto) 10.0 % (.) 02/28/24 22:00 Eos % (Auto) 0.9 % (.) 02/28/24 22:00 Baso % (Auto) 0.4 % (.) 02/28/24 22:00 Nucleat RBC Rel Count 0.1 /100 WBC (0-0.5) 02/28/24 22:00 Neut # (Auto) 4.6 x10E3/uL (1.8-7.7) 02/28/24 22:00 Lymph # (Auto) 0.6 x10E3/uL (1.00-4.8) L 02/28/24 22:00 Kerr # (Auto) 0.6 x10E3/uL (0.0-0.8) 02/28/24 22:00 [...] signed by Silvano Reed DO> 02/29/24 0128 [facility] Work Phone: 1(513) 251-499210-08-2024 History of Present illness Narrative* Olivia Toro LPN - 02/20/2024 2:00 PM EDT Patient here for an EKG visit ordered by Dr. Gonzalez due to new onset afib, diagnosed at [facility] on 02/04/24. Dr. Burroughs in suite to review EKG prior to discharge. Medication list Updated verbally. Patient has complaints of SOB and dizziness while in office. To Dr. Gonzalez to read Vitals: 02/20/24 1422 BP: 140/80 BP Location: Left arm Patient Position: Sitting Pulse: 102 Weight: 76.7 kg (169 lb) Height: 1.829 m (6') documented in this [facility] Work Phone: 1([phone]) 885-878709-22-2024 Discharge summary Author Silvano Reed [facility] February 04, 2024 4:34pm Note Date/Time February 04, 2024 2:14pm [facility] [address] [place] [address] Discharge Summary Signed Patient: Mary Mcadams MR#: [id number] : 1955 Acct:[id number] Age/Sex: 68 / M Adm Date: 4 Loc: Room: [address] [place] [address]: Silvano Reed DO Copies to: DO Shannon Waller MD, [facility] Silvano Reed DO~ Providers Date of Discharge: 02/04/24 Discharging Provider: Silvano Reed Primary Care Provider: Adam Del Valle Consults: 02/02/24 10:35 Consult to Cardiology Routine Comment: Consulting Provider: [facility] Reason For Exam: New A-Fib with RVR. [...] and months. 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 He [...] long time was not changed by the heritage consultant during hospital stay. An echocardiogram was [...] Instructions: 2 liters at HS and napping [facility] Ellipta 200-62.5-25 mcg blister with device 1 inh inhalation DAILY Qty: 180 4RF Rx Instructions: Rinse after use Follow Up: Shannon Gonzalez MD [Active Staff] - (Call Monday to schedule a post hospitalization follow up appointment. You may need a cardioversion on the future. ) Adam Del Valle DO [Primary Care Provider] - (Please call Monday morning to makea post hospitalization follow up appointment [...] % (Auto) 72.1, Lymph % (Auto) 13.6, Kerr % (Auto) 12.9, Eos % (Auto) 1.2, Baso % (Auto) 0.2, Nucleat RBC Rel Count 0.1, Neut # (Auto) 5.6, Lymph # (Auto) 1.1, Kerr # (Auto) 1.0 H, Eos # (Auto) 0.1, Baso # (Auto) 0.0, PHA Creatinine Clear 86.96, Sodium 133 L, Potassium 4.4, Chloride 100, Carbon Dioxide 29.9, Anion Gap 7.5, BUN 22, Creatinine 0.88, Est GFR (CKD-EPI) > 60.0, Glucose 83, Calcium 8.7 Documented By: Silvano Reed DO 1414 Signed By: <Electronically signed by Silvano Reed, > 02/04/24 1634 [facility] Work Phone: 1([phone]) 708-185509-22-2024 Progress note Author Shannon Gonzalez [facility] February 04, 2024 1:00pm Note Date/Time February 04, 2024 1:00pm [facility] [address] [place], [place] [id number] Cardiology Progress Note Signed Patient: Mary Mcadams MR#: [id number] : 1955 Acct:[id number] Age/Sex: 68 / M Adm Date: 4 Loc: Room: [address] [place] [address] Type: ADM IN Attending Dr: Silvano Reed [...] % (Auto) 72.1 Lymph % (Auto) 13.6 Kerr % (Auto) 12.9 Eos % (Auto) 1.2 Baso % (Auto) 0.2 Nucleat RBC Rel Count 0.1 Neut # (Auto) 5.6 Lymph # (Auto) 1.1 Kerr # (Auto) 1.0 H Eos # (Auto) [...] Plan: Continue Xarelto indefinitely Code(s): Z79.01 - intermediate (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 Documented By: Shannon Gonzalez MD, [facility] 4 1256 Signed By: <Electronically signed by MD POOL Gonzalez> 02/04/24 1300 [facility] Work Phone: 1(556) 557-950209-21-2024 Progress note Author Silvano Reed [facility] February 03, 2024 2:11pm Note Date/Time February 03, 2024 12:35pm [facility] [address] [place] [address] Hospitalist Progress Note Signed Patient: Mary Mcadams MR#: [id number] : 1955 Acct:[id number] Age/Sex: 68 / M Adm Date: 4 Loc: Room: [address] [place] [address] Type: ADM IN Attending Dr: Silvano Reed [...] spray 02/03/24 09:00 02/03/24 08:18 Fluticasone Propionate Spraggs 120 Spraggs/16 Gm Bottle INTRANASAL 02/02/25 08:59 1 spray [...] Administration Non-Formulary Medication 1 inh 02/03/24 09:00 Sbsgrbqzedx-Tljlfypyb-Rcvvbmev [Trelegy Ellipta] INHALATION 02/02/25 08:59 DAILY ALEX [...] atrial fibrillation - Accepted inpatient transfer from [facility] - Currently hemodynamically stable - BNP [...] dyspnea on exertion. BNP level at the [facility] was extremely high at 2166. - Cardiology consultation. 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 intermediate conditions: Chronic hypoxic respiratory failure - continue 2 liters by MI as at home. Take medications as directed [...] <Electronically signed by DO MAIA Billy> 02/03/24 1657 [facility] Work Phone: 1(838) 488-536909-21-2024 Consult note Author Shannon Gonzalez [facility] February 03, 2024 1:43pm Note Date/Time February 03, 2024 1:38pm [facility] [address] [place] [address] Cardiology Consult Note Signed Patient: Mary Mcadams MR#: [id number] : 1955 Acct:[id number] Age/Sex: 68 / M Adm Date: 4 Loc: Room: [address] [place] [address] Type: ADM IN Attending Dr: Silvano Reed DO Copies to: DO Shannon Waller MD, [facility] Silvano Reed DO~ Cardiology HPI History of [...] 11 point review of system essentially unremarkable [facility] Medical History Cardiac sarcoidosis Bullous emphysema History [...] Lymph # (Auto) 0.5 L (1.00-4.8) x10E3/uL Kerr # (Auto) 0.9 H (0.0-0.8) x10E3/uL Eos [...] @ 10 MG/HR 10 mls/hr IV .Q10H [facility] Rx#:[id number] Oral 650 / 650 550 / 550 [...] atrial fibrillation Documented By: Shannon Gonzalez MD, [facility] 4 1336 Signed By: <Electronically signed by MD POOL Gonzalez> 02/03/24 5970 [facility] Work Phone: 1(145) 465-973509-20-2024 History and physical note Author Silvano Reed [facility] February 02, 2024 3:17pm Note Date/Time February 02, 2024 12:05pm [facility] [address] [place] [address] Hospitalist H&P Signed Patient: Mary Mcadams MR#: [id number] : 1955 Acct:[id number] Age/Sex: 68 / M Adm Date: 4 Loc: Room: [address] [place] [address] Type: ADM IN Attending Dr: Silvano Reed DO Copies to: Rubin Billy DO, RES Adam Del Valle,DO Silvano Reed DO~ HPI DATE OF EXAMINATION: 02/02/24 CHIEF COMPLAINT: New onset afib HISTORY OF PRESENT ILLNESS: Patient is a 68-year-old male with past medical history of nonischemic cardiomyopathy, sarcoidosis, BPH, hypertension, acoustic neuroma who presented to [facility] on 01/31 with complaint of new [...] was diagnosed with Afib w/ RVR at [place] [facility] His medications seem to help with his pulmonary issues, but he thinks his shortness of breath has been worsening over the past 2 months. He last saw his wool presser, Dr. Alvares in October 2023. Per his [...] and no additional complaints, except as documented [facility] Medical History Cardiac sarcoidosis Bullous emphysema History [...] atrial fibrillation - Accepted inpatient transfer from [facility] - Currently hemodynamically stable - BNP 2166 - Stat EKG shows afib - Cardizem drip -titrate for heart rate between 70 and 90 bpm. - Trans thoracic echocardiogram. - Cardiology consult placed, will follow recommendations Recent symptomatology of progressive dyspnea, and dyspnea on exertion. BNP level at the [facility] was extremely high at 2166. -Cardiology consultation. -Awaiting echocardiogram. 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 conditions: Chronic hypoxic respiratory failure - continue 2 liters by MI as at home. Take medications as directed [...] DO> 02/02/24 1517 <Electronically signed by DO MAIA Billy> 02/02/24 1428 [facility] Work Phone: 1(330) 356-549809-20-2024 Evaluation note* Diagnosis Onset Date Resolution Status Admit Date Acoustic neuroma acute Septembe r 2023 9:23am Anticoagulated acute February 02, 2024 9:23am Benign prostatic hyperplasia with lower urinary tract symptoms acute February 02, 2024 9:23am Cardiac sarcoidosis acute mb2023 9:23am Chronic HFrEF (heart failure with [...] Hypertension acute February 11:30pm Pulmonary sarcoidosis acute Feb mauri 2023 11:30pm Acute on chronic clinical systolic heart failure resolved February 122023 11:30pm Bullous emphysema resolved February 28, 2024 11:30pm Chronic respiratory failure with hypoxia resolved February 27 11:30pm Hyponatremia resolved February 11:30pm Lower extremity edema resolved Feb mauri 2023 11:30pm Shortness of breath resolved [...] March 13, 2024 8:27pm Atrial fibrillation acute Novem 2023 1:58pm Chronic HFrEF (heart failure with reduced ejection fraction) acute March 25, 2 024 1:58pm Encephalopathy acute March 152023 1:58pm Hypertension acute March 1:58pm Nonischemic cardiomyopathy chronic March 25, 2024 1:58pm Sarcoidosis of lung resolved Novem 2023 1:58pm [facility] Work Phone: 1([phone]) [phone] History of Present illness Narrative* Steven Alvares MD - 10/13/2023 1:30 PM EDT Roni Mcadams is a 68 y.o. male [...] Attestation By signing my name below, I, Janine Arcos LPNibmarge attest that this documentation has been prepared [...] exam, discussion and plan. documented in this [facility] Work Phone: 1(891) 943-340605-31-2024 Instructions* Patient Instructions* Beverley Morse LPN - [...] time of your visit. documented in this [facility] Work Phone: 1(900) 989-559604-01-2024 Hospital Discharge instructions Patient Education 08/14/2023 16:09:27 [...] urethra. Follow these instructions at home: Take wqpm-kfy-cuormfe and prescription medicines only as told by [...] provider. Document Revised: 11/17/2021 Document Reviewed: 11/17/2021 [employer] Patient Education 2022 [employer]. 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 2.Clean your penis with soap and [...] reusable catheter in a small bathroom. Take ghpp-jnv-tuntqks and prescription medicines only as told by [...] provider. Document Revised: 03/07/2022 Document Reviewed: 03/07/2022 [employer] Patient Education 2022 [employer] 11/28/2022 14:00:56 Benign Prostatic Hyperplasia Benign Prostatic [...] urethra. Follow these instructions at home: Take kssg-lpw-odwxsyk and prescription medicines only as told by [...] provider. Document Revised: 11/17/2021 Document Reviewed: 11/17/2021 [employer] Patient Education 2022 [employer]. Follow Up Care 02/14/2022 12:45:59 With:EMERSON SALMON, Clinton Hernandez, URL Address: [facility] [address], [place] [address] [phone] When: Unknown Comments:6 mos w/ PSA [facility] 05-16-2023 Evaluation note* Encounter Date Diagnosis Assessment Notes Treatment Notes Treatment Clinical Notes September, Chronic obstructive pulmonary disease, unspecified (ICD-10 - J44.9) [facility] Other 04-20-2023 Evaluation note* Encounter Date Diagnosis [...] with reduced ejection fraction) (ICD-10 - I50.22) [facility] Other 10-03-2022 Hospital Discharge instructions Patient Education 02/14/2022 12:20:02 Acute Urinary Retention, Male, Rxkm-tg-Sybr Acute Urinary Retention, Male Acute urinary retention means that you cannot pee (urinate) at all, or that you pee too little and your bladder is not emptied completely. If it is not treated, it can lead to kidney damage or other serious problems. Follow these instructions at home: Take qyij-yec-miaxsnz and prescription medicines only as told by [...] 10/17/2008 Document Revised: 07/18/2019 Document Reviewed: 06/02/2017 Else[employer] Patient Education 2020 [employer] Follow Up Care 08/09/2021 13:00:29 With:EMERSON SALMON, Clinton Hernandez, URL Address: [facility] [address] , [place] [address]- [phone] When:08/15/2022 [facility] [employer] 06-14-2022 History and physical note Author Gregg Hilliard [facility] October 26, 2021 10:26am Note Date/Time October 26, 2021 10:1 5am [facility] [address] [place] [address] Gastroenterology H&P Signed Patient: Mary Mcadams MR#: [id number] : 1955 Acct:[id number] Age/Sex: 66 / M Adm Date: 2 Loc: Room: Type: [facility] Attending Dr: Gregg Hilliard DO Copies [...] for evaluation Documented By: Gregg Hilliard Jr, 10/26/21 101 1 Signed By: <Electronically signed by Gregg Hilliard Jr, DO> 10/26/21 1026 [facility] Work Phone: 1(757) 568-155306-14-2022 [facility] Evaluation [facility]* Encounter Date Diagnosis Assessment Notes Treatment Notes Treatment Clinical Notes September, History of colon polyps (ICD-10 - Z86.010) September, Anemia, unspecified type (ICD-10 - D64.9) [facility] Other 05-24-2022 Evaluation note* Encounter Date Diagnosis Assessment Notes Treatment Notes Treatment Clinical Notes September, Chronic obstructive pulmonary disease, unspecified (ICD-10 - J44.9) [facility] Other 04-06-2022 Evaluation note* Encounter Date Diagnosis Assessment Notes Treatment Notes Treatment Clinical Notes Aug, 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 2.Prepare the supplies that you will [...] reusable catheter in a small bathroom. Take nouz-dab-bossyru and prescription medicines only as told by [...] 06/03/2011 Document Revised: 08/21/2019 Document Reviewed: 12/20/2018 [employer] Patient Education 2020 [employer]. 08/09/2021 12:46:36 Benign Prostatic Hyperplasia Benign Prostatic [...] urethra. Follow these instructions at home: Take jdgn-lur-xufdwln and prescription medicines only as told by [...] 05/01/2006 Document Revised: 03/26/2019 Document Reviewed: 06/05/2017 [employer] Patient Education 2020 [employer]. Follow Up Care 04/05/2021 12:45:32 With:Clinton NORMAN MD, URL Address: [facility] [address], [place] [address] [phone] When:02/09/2022 Comments:6 months w PSA [facility] evaluation + Plan note Future Appointments Appointment Date:02/14/2022 11:45:00 AM Scheduled Provider:Clinton NORMAN MD Location:[facility] Appointment Type:URO Office Visit Diagnostic Tests Pending * PSA Total 08/09/21 [facility] evaluation + Plan note Future Appointments Appointment Date:09/05/2022 02:15:00 PM Scheduled Provider:Clinton NORMAN MD Location:[facility] Appointment Type:URO Office Visit [facility] evaluation + Plan note Future Appointments Appointment Date:06/05/2023 12:45:00 PM Scheduled Provider:Clinton NORMAN MD [facility] Type:URO Office Visit Diagnostic Tests Pending * PSA Total 11/28/22 [facility] evaluation + Plan note Future Appointments Appointment Date:02/19/2024 01:15:00 PM Scheduled Provider:Clinton NORMAN MD Location:[facility] Appointment Type:URO Office Visit Diagnostic Tests Pending * PSA Total 08/14/23 [facility] evaluation + Plan note Future Appointments Appointment Date:02/03/2025 02:30:00 PM Scheduled Provider: Location:[facility] Appointment Type:URO Nurse Visit Appointment Date:02/10/2025 02:15:00 PM Scheduled Provider:Clinton NORMAN MD Location:[facility] Appointment Type:URO Office Visit Future Scheduled Tests Laboratory* PSA Total 02/05/25 [facility] evaluation noteNo assessment information available [facility] Work Phone: evaluation note* Diagnosis Onset Date Resolution Status Anemia acute Personal history of colonic polyps acute [facility] Work Phone: evaluation noteNo InformationNort[employer] Other Evaluation note* Diagnosis Non-ischemic cardiomyopathy (Multi)- Primary Other primary cardiomyopathies LV (left ventricular) mural thrombus Acute myocardial infarction, unspecified site, episode of care unspecified Diastolic dysfunction Unspecified heart disease Pulmonary sarcoidosis (Multi) Sarcoidosis Imbalance Abnormality of gait BMI 23.0-23.9, adult documented in this encounter [facility] Work Phone: Evaluation note* Diagnosis Onset Date Resolution Status Acoustic neuroma acute Anticoagulated acute Atrial fibrillation with RVR acute Benign prostatic hyperplasia with lower urinary tract symptoms acute Cardiac sarcoidosis acute Chronic HFrEF (heart failure with reduced ejection fraction) acute Hypertension acute New onset atrial fibrillation acute Nonsustained paroxysmal ventricular tachycardia acute Pulmonary sarcoidosis acute Nonischemic cardiomyopathy c [facility] Work Phone: evaluation note* Diagnosis Onset Date [...] Sarcoidosis of lung resolved Nonischemic cardiomyopathy c [facility] Work Phone: evaluation note* Diagnosis Onset Date [...] heart failure acute Shortness of breath acute [facility] Work Phone: Evaluation note* Diagnosis Onset Date [...] respiratory failure with hypoxia chronic Hyponatremia chronic [facility] Work Phone: Evaluation note* Diagnosis Onset Date [...] cardiomyopathy c hronic Sarcoidosis of lung resolved [facility] Work Phone: Evaluation note* Diagnosis Onset [...] acute Pulmonary sarcoidosis acute Nonischemic cardiomyopathy c [facility] Work Phone: Evaluation note* Diagnosis Persistent atrial fibrillation (Multi)- Primary Atrial fibrillation Non-ischemic cardiomyopathy (Multi) Other primary cardiomyopathies Chronic obstructive pulmonary disease, unspecified COPD type (Multi) BMI 20.0-20.9, adult High risk medication use Pulmonary sarcoidosis (Multi) Sarcoidosis Carotid artery stenosis without cerebral infarction, right Dyslipidemia Other and unspecified hyperlipidemia documented in this encounter [facility] Work Phone: Evaluation note* Diagnosis Hypotension due [...] of cerebral infarction documented in this encounter [facility] Work Phone: Evaluation note* Diagnosis Fatigue, unspecified type Non-ischemic cardiomyopathy (Multi) Other primary cardiomyopathies Diastolic dysfunction Unspecified heart disease LV (left ventricular) mural thrombus Acute myocardial infarction, unspecified site, episode of care unspecified 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 (Multi) Atrial fibrillation documented in this encounter [facility] Work Phone: Evaluation note* Diagnosis Chronic respiratory [...] (CMS-HCC) Sarcoidosis Chronic systolic congestive heart failure ([facility]) Muscle weakness (generalized) Alcohol dependence, 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[facility]) Other and unspecified alcohol dependence, in remission [facility] Diagnosis Chronic respiratory failure with hypoxia ([facility])- Primary Closed wedge compression fracture of T8 vertebra with routine healing, subsequent encounter Closed wedge compression fracture of T7 vertebra with routine healing, subsequent encounter Sarcoidosis of lung ([facility]) Sarcoidosis Chronic systolic congestive heart failure ([facility]) Sarcoid myocarditis Gross hematuria Hypo-osmolality and hyponatremia Hypokalemia Hypopotassemia Alcohol dependence, 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[facility]) Other and unspecified alcohol dependence, in remission Benign prostatic hyperplasia with lower urinary tract symptoms, symptom details unspecified Other spondylosis, lumbar region Muscle weakness (generalized) Encephalopathy, unspecified type Occlusion and stenosis of right carotid artery Gastroesophageal reflux disease without esophagitis Esophageal reflux Chronic atrial fibrillation ([facility]) Atrial fibrillation [facility] Diagnosis Chronic systolic congestive heart failure ([facility])- Primary Chronic atrial fibrillation ([facility]) Atrial fibrillation Sarcoidosis of lung ([facility]) Sarcoidosis Hypo-osmolality and hyponatremia Benign prostatic hyperplasia with lower urinary tract symptoms, symptom details unspecified [facility] Diagnosis Atrial fibrillation, unspecified type (Multi) documented in this encounter [facility] Work Phone: Evaluation note* Diagnosis Non-ischemic cardiomyopathy (Multi) Other primary cardiomyopathies Cardiomyopathy, unspecified documented in this encounter [facility] Work Phone: Evaluation note* Diagnosis Other fatigue- Primary Non-ischemic cardiomyopathy (Multi) Other primary cardiomyopathies 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 (Multi) Atrial fibrillation High risk medication use Pulmonary sarcoidosis (Multi) Sarcoidosis BMI < 18.5 Current smoker documented in this encounter [facility] Work Phone: Evaluation note* Diagnosis High risk medication use- Primary 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 (Multi) Atrial fibrillation 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 (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 Long-term (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 Takotsubo syndrome BMI < 18.5 Cardiac sarcoidosis Chewing tobacco use Other cardiomyopathy LV dysfunction Left heart failure documented in this encounter [facility] Work Phone: Evaluation note* Diagnosis High risk medication use- Primary 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 (Multi) Atrial fibrillation intermediate (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 Long-term (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 Takotsubo syndrome BMI < 18.5 Cardiac sarcoidosis Chewing tobacco use Other cardiomyopathy LV dysfunction Left heart failure High risk medication use documented in this encounter [facility] Work Phone: Evaluation note* Diagnosis High risk medication use- Primary 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 (Multi) Atrial fibrillation intermediate (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 Long-term (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 Takotsubo syndrome BMI < 18.5 Cardiac sarcoidosis Chewing tobacco use Other cardiomyopathy LV dysfunction Left heart failure Cardiac sarcoidosis documented in this encounter [facility] Work Phone: History and physical note Author Silvano Reed [facility] Note Date/Time November 11, 2024 3:30 am [facility] [address] [place] [address] Hospitalist H&P Signed Patient: Mary Mcadams MR#: [id number] : 1955 Acct:[id number] Age/Sex: 69 / M Adm Date: 5 Loc: ER Room: Type: [facility] ER Attending Dr: Copies to: DO Hasmukh [...] except as mentioned elsewhere in the documentation. [facility] Medical History (Updated 11/11/24 @ 03:27 by [...] 11/10/24 23: Hct 31.6 % (38.8-50.0) L 11/10/24: MCV 80.8 fl (83.5-101) L 11/10/24 23: MCH 27.0 pg (27.5-35.2) L 11/10/24 23: MCHC 33.4 g/dL (32.5-35.6) 11/10/24 23: RDW 16.5 % (12.0-14.8) H 11/10/24 23: Plt Count 262 x10E3/uL (150-450) 11/10/24: MPV 7.9 fl (6.6-10.1) 11/10/24 23: Neut % (Auto) 66.5 % (.) 11/10/24 23: Lymph % (Auto) 18.7 % (.) 11/10/24: Kerr % (Auto) 9.3 % (.) 11/10/24: Eos % (Auto) 5.0 % (.) 11/10/24 23: Baso % (Auto) 0.5 % (.) 11/10/24 23: Nucleat RBC Rel Count 0.1 /100 WBC (0-0.5) 11/10/24 23: Neut # (Auto) 4.3 x10E3/uL (1.8-7.7) 11/10/24 23:30 Lymph # (Auto) 1.2 x10E3/uL (1.00-4.8) 11/10/24 23:30 Kerr # (Auto) 0.6 x10E3/uL (0.0-0.8) 11/10/24 23:30 Eos # (Auto) 0.3 x10E3/uL (0.0-0.45) 11/10/24 23: Baso # (Auto) 0.0 x10E3/uL (0.0-0.2) 11/10/24 23:30 Monocyte Dist Width 18.48 % (0.00-20.00) 11/10/24 23: PHA Creatinine Clear 77.17 11/10/24 23:30 Sodium 133 mmol/L (136-145) L 11/10/24 23:30 Potassium 4.1 mmol/L (3.5-5.1) 11/10/24: Chloride 98 mmol/L (98-107) 11/10/24 23: Carbon [...] 11/10/24 23:30 ALT 10 U/L (7-52) 11/10/24 23: Alkaline Phosphatase 149 U/L (34-104) H 11/10/24 [...] pH 5.5 (5.0-9.0) 11/10/24 23:15 Ur Specific [place] 1.010 (1.001-1.030) 11/10/24 23:15 Urine Protein Negative [...] signed by Silvano Reed DO> 11/11/24 0330 [facility] Work Phone: History general Narrative - Reported* Type Description Date Medical History sarcoidosis Medical History Lung disease Medical History COPD Surgical History mediastinoscopy Hospitalization History when on coumadin he was bleeding out Hospitalization History Breathing Problems [facility] 06/2018 [facility] Other Hisxqcn general Narrative - Reported* Type Description Date Medical History sarcoidosis Medical History Lung disease Medical History COPD Surgical History mediastinoscopy Surgical History COLONOSCOPY Surgical History EGD Hospitalization History when on coumadin he was bleeding out Hospitalization History Breathing Problems [facility] 06/2018 [facility] Other History of Present illness NarrativePatient returns [...] changes in medical therapy and follow-up next year.[facility] 250 DO Work Phone: Hospital course Narrative No data available for this section [facility] Hospital Discharge instructions No data available for this section [facility] InstructionsNot on filedocumented in this encounter [facility] filed[facility] in this encounter [facility] on filedocumented in this encounter [facility] No data available for this section [facility] reason for referral (narrative)* Consultation (Routine) - Authorized Specialty Diagnoses / Procedures Referred By Contac t Referred To Contact Cardiology Diagnoses Non-ischemic cardiomyopathy (Multi) Procedures Follow Up In Cardiology Steven Alvares MD [address] [facility] 2, [address] [address] Shannon Gonzalez MD [address] [place] [address] 2, [address] [address] Referral ID Status Reason Start Date Expiration Date V isits Requested Visits Authorized [id number] Authorized 10/13/2023 10/12/2024 1 1 [facility] Work Phone: Reason for referral (narrative)No reason for referral [facility] Work Phone: Reason for visit Narrative* Cardiac Stress Testing (Routine) - Authorized Specialty Diagnoses / Procedures Referred By Contac t Referred To Contact Radiology Diagnoses Fatigue, unspecified type Non-ischemic cardiomyopathy (Multi) Diastolic dysfunction LV (left ventricular) mural thrombus 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 (Multi) Procedures Nuclear Stress Test CHG MYOCARDIAL SPECT MULTIPLE STUDIES Shannon Gonzalez MD [address] [place] [address], [address] [address] Phone: tel: fax: Referral ID Status Reason Start Date Expiration Date V isits Requested Visits Authorized [id number] Authorized 05/24/2024 05/24/2025 5 1 [facility] Work Phone: Rexiht for visit Narrative* Cardiac Stress Testing (Routine) - Authorized Specialty Diagnoses / Procedures Referred By Contac t Referred To Contact Radiology Diagnoses Fatigue, unspecified type Non-ischemic cardiomyopathy (Multi) Diastolic dysfunction LV (left ventricular) mural thrombus 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 (Multi) Procedures Nuclear Stress Test CHG MYOCARDIAL SPECT MULTIPLE STUDIES Shannon Gonzalez MD [address] [place] [address] [address], [address] [address] Phone: tel: fax: Referral ID Status Reason Start Date Expiration Date V isits Requested Visits Authorized [id number] Authorized 05/24/2024 05/24/2025 5 1 [facility] Work Phone: reason for visit Narrative* CV Imaging (Routine) - Authorized Specialty Diagnoses / Procedures Referred By Contac t Referred To Contact Cardiology Diagnoses Diastolic dysfunction Non-ischemic cardiomyopathy (Multi) LV (left ventricular) mural thrombus Procedures Transthoracic Echo Complete IA ECHO TTHRC R-T 2D W/WOM-MODE COMPL SPEC&COLR D Shannon Gonzalez MD [address] [facility] [address], [address] [address] Phone: tel: fax: Referral ID Status Reason Start Date Expiration Date Visits Requested Visits Authorized [id number] Authorized Perform Procedure 03/27/2025 1 1 [facility] Work Phone: reason for visit Narrative* Imaging (Routine) - Authorized Specialty Diagnoses / Procedures Referred By Oleg t Referred To Contact Radiology Diagnoses Cardiac sarcoidosis Procedures MR cardiac morphology and function w and wo IV contrast Ning Godoy, STEAM CONDITIONING OPERATOR-MENSWE[employer] SALESPERSON [address] [facility] [address], [address] [address] Phone: tel: fax: Referral ID Status Reason Start Date Expiration Date Visits Requested Visits Authorized [id number] Authorized Perform Procedure 01/16/2025 02/15/2026 1 1 [facility] Work Phone: Summary Purpose Family History No [...] coronary artery bypass surgery Unknown Advance Directives No Advanced Directives Records [...] Documentation Amb Documentation CC Adult Risk Stratification FR:CHF-HIGH RISK Reason for Visit Acoustic neuroma Anticoagulated [...] Documentation Amb Documentation CC Adult Risk Stratification [facility]:CHF-HIGH RISK Encephalopathy Encephalopathy Encephalopathy Encephalopathy Reason for [...] Admit Date New Onset Afib, CHF Exacerbation Sept2023 9:23am Amb Documentation February 05, 2024 11:13am Amb Documentation February 12, 2024 3:53pm Hosp f/u February 14, 2024 2: 16pm has Afib, SOB February 28, 2024 1 1:30pm Amb Documentation February 29, 2024 3 :30pm Amb Documentation March 01, 2024 3 :02pm CC Adult Risk Stratification February 11:10am [facility]:CHF-HIGH RISK March 08, 2024 1 :23pm Encephalopathy [...] Date CC Adult Risk Stratification February 11:10am [facility]:CHF-HIGH RISK March 08, 2024 1 :23pm Encephalopathy [...] Amb Documentation November 12, 2024 8:50a m [facility] f/u-HIGH RISK November 19, 2024 11:39 am [...] Amb Documentation November 12, 2024 8:50a m [facility] f/u-HIGH RISK November 19, 2024 11:39 am [...] Amb Documentation November 12, 2024 8:50a m [facility] f/u-HIGH RISK November 19, 2024 11:39 am [...] sarcoidosis January 05, 2025 1:53am Non-ST elevation VT (NSTEMI) December 1:53am Reason for Visit Admit [...] sarcoidosis January 05, 2025 1:53am Non-ST elevation VT (NSTEMI) December 1:53am Takotsubo cardiomyopathy January 05 1:53am Chief Complaint Admit Date dif breathing November 11, 2024 3:15 am Amb Documentation November 12, 2024 8:50a m [facility] f/u-HIGH RISK November 19, 2024 11:39 am cataract January 02, 2025 3: 23pm Shortness of Breath January 05, 2025 1: 53am Amb Documentation January 10, 2025 7: 40am 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 Sarcoidosis January 21, 2025 [...] sarcoidosis January 05, 2025 1:53am Non-ST elevation VT (NSTEMI) December 1:53am Bronchiectasis, uncomplicated January 21, 2025 1:09pm Bullous emphysema January 21, 2025 1:09pm Cardiac sarcoidosis January 21, 2025 1:09pm Chronic respiratory failure with hypoxia January 21, 2025 1:09pm History of aspergilloma January 21 1:09pm Pulmonary sarcoidosis January 21 1:09pm Additional Source Comments (unrecognized sect ion and content) No Status Records FoundNo Status Records FoundNo Status Records FoundNo Status Records FoundNo Status Records FoundNo Status Records FoundNo Status Records FoundNo Status Records Found INFORMATION SOURCE (unrecogn ized section and content) DATE CREATED AUTHOR 12/30/2018 [facility] DATE CREATED AUTHOR AUTHOR'S ORGANIZ ATION 04/30/2021 [facility] DATE CREATED AUTHOR AUTHOR'S ORGANIZ ATION 09/09/2022 [facility] DATE CREATED AUTHOR AUTHOR'S ORGANIZ ATION 08/10/2024 [facility] DATE CREATED AUTHOR AUTHOR'S ORGANIZ ATION 08/11/2024 [facility] DATE CREATED AUTHOR AUTHOR'S ORGANIZ ATION 01/22/2025 [facility] DATE CREATED AUTHOR AUTHOR'S ORGANIZ ATION 01/25/2025 [facility] DATE CREATED AUTHOR AUTHOR'S ORGANIZ ATION 01/29/[address] [facility] Care Teams (unrecognized sec tion and content) [...] Wood MD Other Provider Active Start: S 2023 End: February 04, 2024 Damien Gonzalez MD Other Provider Active Start: February 02, 2024 End: February 04, 2024 Kimani Wolfe MD Other Provider Active Start: S 2023 End: February 04, 2024 Karina Morocho [facility] Other Provider Active Sta rt: February 02, 2024 End: February 04, 2024 Team Status: Inactive Member Role Status Dates Adam Del Valle DO Primary Care Provider Active Gregg Hilliard , DO Attending Provider Active Plastics Worker Relationship Specialty Start Date End Date Adam Del Valle DO [address] [place] [address] PCP - General Internal Medicine 10/13/23 Team [...] February 14, 2024 End: February 14, 2024 Plastics Worker Relationship Specialty Start Date End Date Adam Del Valle DO [address] [place] [address] PCP - General Internal Medicine 10/13/23 Team [...] 2024 Team Status: Active Member Role Status Siobhan Del Valle DO Primary Care Provider Active Start: February 29, 2024 Juliette Davis CMA Attending Provider Active Start: February 29, 2024 Team Status: Active Member Role Status Siobhan Del Valle DO Primary Care Provider Active Start: March 01, 2024 Juliette Davis CMA Attending Provider Active Start: March 01, 2024 Team Status: Active Member Role Status Siobhan Del Valle DO Primary Care Provide r, Attending Provider Active Start: March 06, 2024 Team Status: Active Member Role Status Siobhan Del Valle DO Primary Care Provide r, Attending Provider Active Start: March 07, 2024 Team Status: Inactive Member Role Status Siobhan Del Valle DO Primary Care Provide r, Attending Provider Active Start: March 08, 2024 End: March 08, 2024 Team Status: Active Member Role Status Siobhan Del Valle DO Primary Care Provider Active [...] ctober 2023 End: March 20, 2024 Nuvia Kristinaya , STEAM CONDITIONING OPERATOR Other Provider Active St art: March 13, 2024 End: March 20, 2024 Freddie Reid Jr, DO Other Provider [...] Active Start: March 14, 2024 Eriberto Stover DO Other Provider Active Start: March 14, 2024 Ijeoma Alvares MD Other Provider Active Start: Oc tober 2023 Hasmukh Mace MD Other Provider Active Start: O ctober 2023 Nuvia Bossman , STEAM CONDITIONING OPERATOR Other Provider Active St art: March 14, 2024 [place] Carrie Reid Jr, DO Other Provider Active S [...] Active Start: March 14, 2024 Ning Godoy APRN Other Provider Active Start : March 14, 2024 Cheli Wood MD Other Provider Active Start: O ctober 2023 Damien Gonzalez MD Other Provider Active Start: March 14, 2024 Kimani Wolfe MD Other Provider Active Start: O ctober 2023 Karina Morocho , ADHESIVE BONDING MACHINE OPERATOR- Other Provider Active Sta rt: March 14, 2024 Lula Muniz NP-C Attending Provider Active Start: March 14, 2024 Team Status: Active Member Role Status Dates Adam Del Valle , Primary Care Provider Active Start: March 15, 2024 Gabriela Nobles MD Admit Provider Active Start: N ov2023 Altaf Jones MD Other Provider Active Start: March 15, 2024 Eriberto Stover DO Other Provider Active Start: March 15, 2024 Ijeoma Alvares MD Other Provider Active Start: No vem2023 Hasmukh Mace MD Other Provider Active Start: N ov2023 Nuvia Keita APRN Other Provider Active St art: March 15, 2024 Freddie Reid Jr, DO Other Provider Active S tart: March 15, 2024 Gutierrez Jo MD Attending Pari truong, Other Provider Active Start: March 15, 2024 [...] Active Start: N ov2023 Karina Morocho , [facility] Other Provider Active Sta rt: March 15, [...] Active Start: N ov2023 Karina Morocho , [facility] Other Provider Active Sta rt: March 16, 2024 Eriberto Stover DO Other Provider Active Start: March 16, [...] Provider Activ e Start: March 16, 2024 Plastics Worker Relationship Specialty Start Date End Date Adam Del Valle DO [address] [place] [address] PCP - General Internal Medicine 10/13/23 Team [...] Status: Inactive Member Role Status Dates Adam Ivon DO Primary Care Provide r, Attending Provider Active Start: March 26, 2024 End: March 26, 2024 Plastics Worker Relationship Specialty Start Date End Date Ivon Adam Bird DO [address] [place] [address] PCP - General Internal Medicine 10/13/23 Team Status: Active Member Role Status Dates Adam Del Valle DO Primary Care Provide r, Attending Provider Active Start: April 09, 2024 Plastics Worker Relationship Specialty Start Date End Date Ivon Adam Marge DO [address] [place] [address] PCP - General Internal Medicine 10/13/23 Plastics Worker Relationship Specialty Start Date End Date IvonAdam DO [address] [place] [address] PCP - General Internal Medicine 10/13/23 Plastics Worker Relationship Specialty Start Date End Date Ivon Adam Bird DO [address] [place] [address] PCP - General Internal Medicine 10/13/23 Plastics Worker Relationship Specialty Start Date End Date Ivon Adam Marge DO [address] [place] [address] PCP - General Internal Medicine 10/13/23 Team [...] July 15, 2024 End: July 15, 2024 Plastics Worker Relationship Specialty Start Date End Date Adam Del Valle DO [address] [place] [address] PCP - General Internal Medicine 10/13/23 Plastics Worker Relationship Specialty Start Date End Date Adam Del Valle DO [address] [place] [address] PCP - General Internal Medicine 10/13/23 Team Status: Active Member Role Status Dates Adam Del Valle DO Primary Care Provider Active Start: August 01, 2024 Juliette Davis CMA Attending Provider Active Start: August 01, 2024 Team Status: Inactive Member Role Status Dates Adam Del Valle DO Primary Care Provide r, Attending Provider Active Start: September 02, 2024 End: September 02, 2024 Plastics Worker Relationship Specialty Start Date End Date Adam Del Valle DO [address] [place] [address] PCP - General Internal Medicine 10/13/23 Team [...] S tart: November 11, 2024 Silvano Reed , DO Admit Provider Active Start: November 11, 2024 Silvano Reed , DO Attending Provider Active Start: November 11, 2024 Team Status: Inactive Member Role Status Dates Adam Del Valle DO Primary Care Provider Active Start: November 11, 2024 End: November 12, 2024 Hasmukh Vides , DO Emergency Provider Active S tart: November 11, 2024 End: November 12, 2024 Silvano Reed , DO Admit Provider Active Start: November 11, [...] Active Start: January 05, 2025 Cee Proctor , DO Emergency Provider Active S tart: January 05, 2025 Elsie Leonard MD Admit Provider Active Start : January 05, 2025 Elsie Leonard MD Attending Provider Active S tart: January 05, 2025 Team Status: Inactive Member Role Status Dates Adam Del Valle DO Primary Care Provider Active Start: January 05, 2025 End: January 09, 2025 Cee Proctor , DO Emergency Provider Active S tart: January 05, 2025 End: January 09, 2025 Elsie Leonard MD Admit Provider Active Start : January 05, 2025 End: January 09, 2025 Jostin Larose DO Attending Provider Active St art: January 05, 2025 End: January 09, 2025 Plastics Worker Relationship Specialty Start Date End Date Adam Del Valle DO [address] [place] [address] PCP - General Internal Medicine 10/13/23 Juliette Perla RN Care Oil Heater Operator 01/09/25 Plastics Worker Relationship Specialty Start Date End Date Adam Del Valle DO [address] [place] [address] PCP - General Internal Medicine 10/13/23 Juliette Perla RN Care Oil Heater Operator 01/09/25 Team Status: Active Member Role Status Dates Adam Del Valle DO Primary Care Provider Active Start: January 10, 2025 Juliette Davis CMA Attending Provider Active Start: January 10, 2025 Team Status: Active Member Role Status Dates Adam Del Valle DO Primary Care Provider Active Start: January 17, 2025 Ning Godoy APRN Attending Provider Active S tart: January 17, 2025 Team Status: Inactive Member Role Status Dates Adam Del Valle DO Primary Care Provider Active Start: January 21, 2025 End: January 21, 2025 Nick Muniz MD Attending Provider Active Start: January 21, 2025 End: January 21, 2025 Plastics Worker Relationship Specialty Start Date End Date Adam Del Valle DO [address] [place] [address] PCP - General Internal Medicine 10/13/23 Juliette Perla RN Care Oil Heater Operator 01/09/25 Goals (unrecognized section and content) Type [...] ECG 12 Lead Shannon Gonzalez MD [address] [facility] [address], [address] [address] Referral ID Status Reason Start Date Expiration Date V isits Requested Visits Authorized [id number] Authorized 02/05/2024 02/04/2025 1 1 Reason Comments Follow-up Discharge [facility] 03/20 Specialty Diagnoses / Procedures Referred By Contac t Referred To Contact Diagnoses Atrial fibrillation, unspecified type (Multi) Procedures ECG 12 Lead Shannon Gonzalez MD [address], [place] [address] [place] [address] Phone: tel: fax: Referral ID Status Reason Start Date Expiration Date V isits Requested Visits Authorized [id number] Authorized 03/27/2024 03/27/2025 1 1 Reason Comments Hospital Follow-up Hospital follow up [facility] Specialty Diagnoses / Procedures Referred By Contac t Referred To Contact Cardiology Diagnoses Non-ischemic cardiomyopathy (Multi) Procedures Follow Up In Cardiology Shannon Gonzlaez MD [address], [address] [address] Phone: tel: fax: Shannon Gonzalez MD [address], [place] [address] [place] [address] Phone: tel: fax: Referral ID Status Reason Start Date Expiration Date V isits Requested Visits Authorized [id number] Authorized 03/27/2024 03/27/2025 1 1 Reason Comments EKG visit Specialty Diagnoses / Procedures Referred By Contac t Referred To Contact Diagnoses Atrial fibrillation, unspecified type (Multi) Procedures ECG 12 Lead Shannon Gonzalez MD [address], [place] [address] [place] [address] Phone: tel: fax: Referral ID Status Reason Start Date Expiration Date V isits Requested Visits Authorized [id number] Authorized 07/09/2024 07/09/2025 1 1 Reason Comments Follow-up 3 month follow up Ec ho Stress results Specialty Diagnoses / Procedures Referred By Contac t Referred To Contact Cardiology Diagnoses Non-ischemic cardiomyopathy (Multi) Procedures Follow Up In Cardiology Shannon Gonzalez MD [address] [facility] [address], [address] [address] Phone: tel: fax: Shannon Gonzalez MD [address] [facility] [facility] 2, [address] [address] Phone: tel: fax: Referral ID Status Reason Start Date Expiration Date V isits Requested Visits Authorized [id number] Pending Review 05/24/2024 05/24/2025 1 1 Reason Comments Hospital Follow-up TCM for Cardiomyopat hy Specialty Diagnoses / Procedures Referred By Contac t Referred To Contact Diagnoses High risk medication use Procedures ECG 12 Lead Ning Godoy APRN-[employer] SALESPERSON [address] [facility] [address], [address] [address] Phone: tel: fax: Referral ID Status Reason Start Date Expiration Date V isits Requested Visits Authorized [id number] Authorized 01/15/2025 01/15/2026 1 1 Reason Comments Follow-up EKG visit Specialty Diagnoses / Procedures Referred By Contac t Referred To Contact Diagnoses High risk medication use Procedures ECG 12 Lead Ning Godoy STEAM CONDITIONING OPERATOR-[employer]ERSON [address] [facility] [address], [address] [address] Phone: tel: fax: Referral ID Status Reason Start Date Expiration Date V isits Requested Visits Authorized [id number] Authorized 01/16/2025 01/16/2026 1 1 FOR RECORDS [...] BE BASED ON THE PRIMARY CLINICAL RECORDS. [employer] [facility]. provides no warranty or guarantee of the accuracy or completeness of information in this document.
[2025-01-30 12:33] LABS: Hematocrit 32.1 % (42.0-54.0); Hemoglobin 10.4 g/dL (14.0-18.0); Immature Granulocytes Abs Auto 0.02 10^3/uL (0.00-0.03); Immature Granulocytes Pct Auto 0.4 % (0.0-0.5); Lymphocytes Absolute Auto 1.0 10^3/uL (1.2-3.8); Mean Corpuscular HGB Conc 32.4 g/dL (29.9-35.2); Mean Corpuscular Hemoglobin 29.1 pg (25.9-34.0); Mean Corpuscular Volume 89.9 fL (80.0-94.0); Platelet Count 209 10^3/uL (150-450); Red Blood Count 3.57 10^6/uL (4.70-6.10); White Blood Count 5.6 10^3/uL (4.0-11.0)
[2025-01-30 13:00] LABS: Anion Gap 12.9; Blood Urea Nitrogen 21.0 mg/dL (7.0-18.0); Calcium 8.8 mg/dL (8.5-10.1); Carbon Dioxide 26.2 mmol/L (21.0-32.0); Chloride 106 mmol/L (98-107); Estimated GFR (African America >60 (>=60 mL/min/1.73m^2); Estimated GFR (Non-African Ame 57 (>=60 mL/min/1.73m^2); Glucose 99 mg/dL (74-106); Potassium 4.1 mmol/L (3.5-5.1); Sodium 141 mmol/L (136-145)
== END 2025-01-30 12:09 | disposition home or self-care (01) ==
LOC: LAB 12:09
PROVIDERS: PCP Internal Medicine; Visit Provider Nurse Practitioner
DX: I42.8 Other cardiomyopathies (principal)
CPT/HCPCS: 36415; 80048; 85025

== ENCOUNTER 2025-03-16 13:59 | Observation (INO) | payer MEDICARE, SELFPAY ==
--- OUTSIDE RECORDS SUMMARY | 2025-03-13 19:52 | XMS_ITS | Continuity of Care Document ---
Author Organization [facility] Address [address] [place] [address] Phone Care Team Providers Care Skidder Lever Operator Name Role Phone Adam Wylie DO Primary Care Provider [phone] Josue Beavers MD Attending Provider [phone] Cee Proctor DO Emergency Provider [phone] Elsie Leonard MD Admit Provider [phone] Jostin Larose DO Attending Provider Juliette Davis CMA Attending Provider Unavaila Concepción Bazan APRN Attending Provider Nick Muniz MD Attending Provider Gabreila Nobles MD Admit Provider Jose Padilla MD Other Provider [phone] Joanie Akbar MD Attending Provider Joanie Akbar MD Other Provider Care Teams Patient Care Team Team Status: Active Member Role/Relationship Status Dates Adam Wylie DO Primary Care Provider Active Visit Care Team Team Status: Inactive Member Role/Relationship Status Dates Adam Wylie DO Primary Care Provider Active Start: January 02, 2025 End: January 02, 2025Josue Beavers MDAttending ProviderActiveStart: January 02, 2025 End: January 02, 2025 Visit Care Team Team Status: Inactive Member Role/Relationship Status Dates Adam Wylie DO Primary Care Provider Active Start: January 05, 2025 End: January 09, 2025Cee Proctor DOEmergency ProviderActiveStart: January 05, 2025 End: January 09, 2025Elsie Leonard MDAdmit ProviderActiveStart: January 05, 2025 End: January 09, 2025Jostin Larose DOAttending ProviderActiveStart: January 05, 2025 End: January 09, 2025 Visit Care Team Team Status: Active Member Role/Relationship Status Dates Adam Wylie DO Primary Care Provider Active Start: January 10, 2025 Juliette Davis CMAAttending ProviderActiveStart: January 10, 2025 Visit Care Team Team Status: Active Member Role/Relationship Status Dates Adam Wylie DO Primary Care Provider Active Start: January 17, 2025 Ashkan Arguelles ProviderActiveStart: January 17, 2025 Visit Care Team Team Status: Inactive Member Role/Relationship Status Dates Adam Wylie DO Primary Care Provider Active Start: January 21, 2025 End: January 21helena Muniz MDAttending ProviderActive Start: January 21, 2025 End: January 21, 2025 Visit Care Team Team Status: Active Member Role/Relationship Status Dates Adam Wylie DO Primary Care Provider Active Start: January 30, 2025 Ashkan Arguelles ProviderActiveStart: January 30, 2025 Visit Care Team Team Status: Active Member Role/Relationship Status Dates Adam Wylie DO Primary Care Provider Active Start: February 16, 2025 Faustoal Monica Proctor DOEmergency ProviderActiveStart: February 16, 2025 Gabriela Nobles MDAdmit ProviderActiveStart: February 16, 2025 Paty Ruby ProviderActiveStart: February 16, 2025 Joanie Akbar MDAttending ProviderActiveStart: February 16, 2025 Paty Keller ProviderActiveStart: February 16, 2025 Visit Care Team Team Status: Active Member Role/Relationship Status Dates Adam Wylie DO Primary Care Provider Active Start: February 19, 2025 Juliette Davis CMAAttnataliia ProviderActiveStart: February 19, 2025 Patient Care Team Team Status: Inactive Member Role/Relationship Status Dates Adam Wylie DO Primary Care Provider Active Start: March 13, 2025 End: March 13, 2025Josue Beavers MDAttnataliia ProviderActiveStart: March 13, 2025 End: March 13, 2025 Chief Complaint and Reason for Visit Chief Complaint Admit Date cataract January 02, 2025 3: 23pm Shortness of Breath January 05, 2025 1: 53am Amb Documentation January 10, 2025 7: 40am [employer]: 6 mo f/u Sarcoidosis January 21, 2025 1:09pm Shortness of Breath February 16, 2025 2: 24am Amb Documentation February 19, 2025 2: 40pm Cataract March 13, 2025 9 :43am Reason for Visit Admit Date Takotsubo cardiomyopathy January 05 1:53am Acute on chronic hypoxic respiratory erika lure January 05, 2025 1:53am History of sarcoidosis January 05, 2025 1:53am Non-ST elevation OK (NSTEMI) December 1:53am Bullous emphysema January 21, 2025 1:09pm Chronic respiratory failure with hypoxia January 21, 2025 1:09pm Bronchiectasis, uncomplicated January 21, 2025 1:09pm Cardiac sarcoidosis January 21, 2025 1:09pm History of aspergilloma January 21, 2 025 1:09pm Pulmonary sarcoidosis January 21 1:09pm Acute on chronic hypoxic respiratory erika lure February 16, 2025 2:24am Bronchiectasis, uncomplicated February 2:24am Cardiac sarcoidosis February 16, 2025 2: 24am Chronic HFrEF (heart failure with reduced ejection fraction) February 16, 2025 2:24am COPD exacerbation February 16, 2025 2: 24am History of aspergilloma February 16 2:24am Hx of sarcoidosis February 16, 2025 2: 24am Myalgia February 16, 2025 2: 24am Pulmonary sarcoidosis February 16, 2025 2:24am Reason for Referral Type Reason(s) Provider Provider Contact Information P lashaun Address Start Date You have been scheduled for a follow up appointment for the following date and time, please call to reschedule if needed.Nicola Waller Phone: [phone] [facility] [place] [address]GizbxConcepción Godoy , JAYDENNTameka Phone: [phone] [address] [place] [address]Qft have been scheduled for a follow up appointment for the following date and time, please call to reschedule if needed.Nicola Waller Phone: [phone] [facility] [address] Health Concerns Concerns Start Date A [facility] screening has identified you as FRAIL or AT RISK FOR FRAILTY. This puts you at a higher risk for infection, illness, falls, and other injuries. Here are four ways to help you reduce your risk of frailty: 1. IDENTIFY EARLY SIGNS OF FRAILTY ??? Discuss contributing factors and concerns with your doctor 2. BE ACTIVE ??? Walking and light strengthening exercises will help reduce weakness 3. EAT WELL ??? Aim for three healthy meals a day that are high in protein 4. THINK POSITIVE ??? Keep your mind active by being sociable and continuing to learn References: Stay Strong: Four Ways to Beat the Frailty Risk https://[email or web address].org/health/wwilfkve-vyg-ioslpannpw/jnqc-zcjqtl-qikd- cajk-uj-xtun-the-fra ilty-risk Allergies, Adverse Reactions, Alerts Allergen Type Severity Reaction Last Updated Verified Status No Known Allergies Allergy Unknown March 13, 2025 9:34amYesActive Social History Smoking Status Status Start Date End Date Date of Observa tion Never smoked tobacco (finding) March 13, 2025 9:20am Observation Status Observation Response Date of Response Legal Sex Male (finding) Sex Assigned At BirthMaleApril 1955 Social History Assessments Assessment Value Date Recorded SDOH Follow up January 08, 2025 3:32pmQuestionAnswerDate RecordedHas the SDOH screening changed since admission?NAugu 2024 3:32pm Assessment Value Date Recorded SDOH Follow up January 06, 2025 1:55pmQuestionAnswerDate RecordedHas the SDOH screening changed since admission?NAugust 2024 1:55pm Assessment Value Date Recorded SDOH Follow up February 19, 2025 2:53pmQuestionAnswerDate RecordedHas the SDOH screening changed since admission?NOctober 2024 2:53pm Assessment Value Date Recorded SDOH Follow up February 17, 2025 10:35amQuestionAnswerDate RecordedHas the SDOH screening changed since admission?NOctober 2024 10:35am Family History Relationship Condition Age at Onset Recorded Date/T dulce brother Multiple sclerosis Unknown fatherDeceasedUnknownMalignant neoplasmUnknownmotherDiabetes mellitusUnknown Heart diseaseUnknownMyocardial infarctionUnknownDeceasedUnknownHistory of coronary artery bypass surgeryUnknown Problems Active Problems Problem Diagnosis/Recorded Date Onset Date Status C omments Bullous emphysema October 23, 2023 2:26pm Unknown Active Chronic respiratory failure with hypoxiaSeptember 2018 12:05amUnknown ActiveH/O non-ST elevation myocardial infarction (NSTEMI)January 19, 2025 7:28pmUnknownActiveSevere protein-calorie malnutritionOctober 2024 12:45pm UnknownActiveAnticoagulatedSeptember 2023 12:59pmUnknownActiveAcoustic neuromaApril 2023 12:27pmUnknownActiveAnemiaApril 2024 9:38pmUnknown ActiveHypoxemiaJuly 2024 12:47pmUnknownActiveAtrial fibrillationOctober 2023 2:42pmUnknownActiveHyponatremiaFebruary 2018 2:20amUnknownActive Nonischemic cardiomyopathySeptember 2018 12:04amUnknownActiveMRI: cardiac sarcoidosis - 2015,LHC: normal coronary circulation - 2015,Takotsubo cardiomyopathyAugust 2024 12:19sm3366OozjnmIciyfjysoulfetFdfxqvxu 2023 7:15pmUnknownActiveBenign prostatic hyperplasia with lower urinary tract symptomsApril 2024 9:52pmUnknownActivePersonal history of colonic polyps October 26, 2021 10:13amUnknownActiveCarotid stenosis, rightOctober 2023 11:03pmUnknownActiveCTA: 90% right ICA - 02/2024Inactive/Resolved Problems Problem Diagnosis/Recorded Date Onset Date Status C omments UTI (urinary tract infection) July 04, 2024 4:11am U nknown Resolved Alcohol dependenceOctober 2023 12:38amUnknownResolved not anymore Mild left ventricular systolic dysfunctionNovember 2023 4:24pmUnknownResolved Lower extremity edemaOctober 2023 3:44pmUnknownResolvedBronchiectasis, uncomplicatedMarch 2024 5:37pmUnknownResolvedHistory of aspergillomaJune 2023 2:25pmUnknownResolvedEncephalopathy acuteOctober 2023 10:04pm UnknownResolvedPulmonary sarcoidosisFebruary 2024 5:54pmUnknownResolved Sarcoidosis of lungDeceer 2017 10:56pmUnknownResolvedPulmonary sarcoidosisJune 2023 2:25pmUnknownResolvedMyalgiaOctober 2024 2:50am UnknownResolvedShortness of breathOctober 2023 9:58pmUnknownResolvedAcute on chronic clinical systolic heart failureOctober 2023 11:44pmUnknown ResolvedAcute on chronic hypoxic respiratory failureAugust 2024 1:19am UnknownResolvedAcute on chronic hypoxic respiratory failureOctober 2024 3:38amUnknownResolvedCardiac sarcoidosisJune 2023 2:26pmUnknownResolved Chronic HFrEF (heart failure with reduced ejection fraction)September 09, 2023 12:26pmUnknownResolvedEcho: LVEF 25% - 01/2015,Echo: LVEF 58% - 08/2015,Echo: LVEF 45-50%, normal RV size/function, mild aortic root dilatation 4.0 cm - 02/2024,Echo: LVEF 50% - 07/2024,Echo: LVEF 45-50%, LAE, LVH, normal RV size/function - 12/2024, Echo: apical balooning w/ LVEF 25-30% - 12/2024Non-ST elevation OK (NSTEMI)January 05, 2025 1:19amUnknownResolvedNonsustained paroxysmal ventricular tachycardiaSeptember 2023 12:58pmUnknownResolved Compression fracture of body of thoracic vertebraFebruary 2024 12:40am UnknownResolvedPersistent atrial fibrillationNovember 2023 4:23pmUnknown ResolvedWeaknessFebruary 2024 12:39amUnknownResolvedAbnormal QT interval present on electrocardiogramFebruary 2024 5:53pmUnknownResolvedAcute UTI July 04, 2024 8:30amUnknownResolvedAltered mental statusFebruary 2024 11:38pmUnknownResolvedHistory of sarcoidosisAugust 2024 1:19amUnknown ResolvedHx of sarcoidosisOctober 2024 2:50amUnknownResolvedAcute exacerbation of chronic obstructive pulmonary disease (COPD)November 11, 2024 3:25amUnknownResolvedCOPD exacerbationOctober 2024 2:50amUnknownResolved Abdominal painOctober 2023 2:12pmUnknownResolvedHypertensionApril 2023 12:26pmUnknownResolvedFallFebruary 2024 12:43amUnknownResolvedAtrial fibrillation with RVRSeptember 2023 2:27pmUnknownResolved Medications Medication Status Dose Units Route Directions Qty Days Refills S tart Date Stop Date End Date Reason(s) Instructions Adherence Fluticasone Propion-Salmeterol (Wixela Inhub) 500-50 mcg/dose blister with device Discontinued 1 INH INHALATION Twice daily 180 90 3 September 15, 2023 4:51pm October 23, 2023 3:25pmAlbuterol Sulfate 90 mcg/actuation HFA aerosol inhaler Discontinued0.ROUTE.ZYJXYXY3156Rnkf 2023 5:53pmFebruary 2024 11:25am Bullous emphysema Emphysema, unspecifiedINHALE 2 PUFFS BY MOUTH EVERY 6 HOURS NEEDEDIpratropium Letcher 0.02 % solutionDiscontinued0.5MGINHALATIONFour times [id number] January 29, 2024 8:52amSeptember 2023 12:51pmIpratropium-Albuterol 0.5 mg-3 mg(2.5 mg base)/3 mL solution for nebulizationDiscontinued0.ROUTE.COMPLEX 3605September 2023 12:51pmSeptember 2023 11:36amINHALE 2.5ML VIA NEBULIZER FOUR TIMES DAILY FOR 30 DAYSIpratropium-Albuterol 0.5 mg-3 mg(2.5 mg base)/3 mL solution for ywxwlzaorwalPwmocaohdeah2DLZXBVZFFFXXEzsz times 3011Sept2023 11:26amAugust 2024 3:08pmPantoprazole 40 mg tablet,delayed release (DR/EC)Discontinued0.ROUTE.XUFUDRA927Nneewoa 2023 7:41pmFebruary 2024 11:25amTAKE 1 TABLET BY MOUTH ONCE DAILY ON AN EMPTY STOMACH 30 MINUTES prior to BREAKFASTTamsulosin 0.4 mg capsuleDiscontinued0.4MG POTwice kwtpo83800Pnqmclzg 11th, 2024 9:49amMarch 2024 5:17pmPotassium Chloride (Klor-Con 10) 10 mEq tablet extended waxnvdyIelinfayvvzq68EDCEPWvexk60 305Nov2023 1:00amNovember 2023 2:33pmPotassium Chloride (Klor- Con 10) 10 mEq tablet extended bujrdhkDzbjmkybzfri79PTLPJBdwtm32205Mrdocezh 13th, 2024 1:00amJuly 2024 12:13pmFurosemide 20 mg iteijfAnycszqmcysn91VQOM Hbxis44473Mdidcrpf 19th, 2024 1:34pmDecember 2023 12:37pmValsartan 40 mg uqznpiTesmodmkyxqy62XNZLFznmp psuac15678Arhduimi 2023 1:00amDecember 2023 2:28pmValsartan 40 mg mehbijMllfzsmyvkpl99GCIYFeovj bolon08960Ovmnnobb 2023 2:28pmJanuary 2024 12:33pmValsartan 40 mg xbjgavWwayuesksuex72KT LXDqflw39938Sxiiebc 2024 12:32pmFebruary 2024 11:25amOn Hold: None Tamsulosin 0.4 mg capsuleActive0.ROUTE.GGYDGVL9109Byxpl 2024 5:17pmTAKE 1 CAPSULE BY MOUTH TWICE DAILYUnknownFurosemide 40 mg ohtpygUvqiab38KIVIWanyu as needed for hgioo335202Hfogjlwgs 2024 8:35pmOn Hold: Hold until you notice weight gain or leg swellingUnknownFluticasone Propion-Salmeterol 500-50 mcg/dose blister with deviceDiscontinuedINHALATIONSeptember 2023 12:00amJanuary 2024 3:41pmRivaroxaban (Xarelto) 20 mg CrkkwxXjgporakkiqz32SLAFRjkxg with odvazvqdm34840Frvjdfftf 2023 12:00amAugust 2024 3:08pmFurther refills per Cardiology with Dr. Santana.Amiodarone 200 mg VhiudwPphheryqogwg027 MGPOTwice vnpyz0818Wkgwvpb 2023 12:00amNovember 2023 1:50pmAmiodarone 200 mg bcmnvrGsrblqzytwet094DRKXXcbfv qpvzg559167Uwcdzmb 2023 12:00am March 20, 2024 1:50pmstart after you complete 400 mg twice daily for 7 days Potassium Chloride 10 mEq tablet extended hzlzjgiTrfkvf93TBYQWVrcgg morning March 13, 2025 12:00amUnknownAtorvastatin 40 mg YtiwqpIpqdoc88HFSEIglhz morningOctober 2024 12:00amUnknownSpironolactone 25 mg DpbiuvCzpdmj79.5MG POEvery morningOctober 2024 12:00amUnknownDapagliflozin Propanediol 10 mg EffisxMkzapx45XQPXExltk morningOctober 2024 12:00amUnknownCarvedilol 6.25 mg TabletDiscontinued6.25MGPOTwice dailyDecember , 2018 1:00amMay 13, 2018 2:03pmPolysaccharide Iron Complex (Ferrex 150) 150 mg iron Capsule Keutvfgjdlpi963AKIAVyuzeVxmnaici 28th, 2018 1:00amSeptember 2018 12:11am Prednisone 5 mg JrfpqaBhoyncuqpzue5WFPKHdtrlIpgteusx 28th, 2018 1:00amMay 13, 2018 2:13pmAmoxicillin 875 mg WgwnteLxwchcpcscuw961PEIWZjfsd dailyMay 11, 2018 1:00amFebruary 2018 2:03amFluticasone Propion-Salmeterol (Advair Diskus) 500-50 mcg/dose Blister With CkfvxzRbflvahtmbnw1ABIIURWFNGHEI Twice dailyMay 11, 2018 1:002017 2:03pmAlbuterol Sulfate (Ventolin Hfa) 90 mcg/actuation Hfa Aerosol BwijuhaBynbnsockqoc7WDTQMGPUTHBOIQ Q6H as needed for Shortness Of Breath Or WheezingMay 11, 2018 1:00amOctober 23, 2023 3:25pmTiotropium Letcher (Spiriva With Handihaler) 18 mcg Capsule, W/Inhalation XubefsOsosociobkgq6STLXKMONTFNVGQlyhlPcahztky 28th, 2018 1:00am September 08, 2023 3:46pmSacubitril-Valsartan (Entresto) 24-26 mg Tablet Pzdtinggplqz6FZAUSZipwn dailyMay 11, 2018 1:00amNovember 11, 2024 2:39am Ipratropium-Albuterol 0.5 mg-3 mg(2.5 mg base)/3 mL Solution For Nebulization Nwioxluoniqd4OWFAKDCQFTPQnfach 6 to 8 hours as needed for WheezingMay 11, 2018 1:00amMay 2023 2:02pmFluticasone Propionate 50 mcg/actuation [place],UjzxjoplmeFgwycciaqfia4GREXKDWLSWKAYOCZwiwiUakjpbdh 28th, 2018 1:00am February 10, 2019 12:13amCarvedilol 12.5 mg YexkvfUmfybpyngbgt93.5MGPOTwice fsfcx670Twgxfypo 30th, 2018 1:00ept2018 12:10amPrednisone 5 mg FtcaceKkamaxmugifz7VFVXKhgwr21Pnwlrbpz 30th, 2018 2:13pmFebr2018 1:44pmContinue after Medrol dose-man is finishedFurosemide (Lasix) 40 mg tablet Uplmhxcmlalj13UOSMGzhvq222Hsejcocp 30th, 2018 1:00ept2018 12:10am Methylprednisolone (Medrol (Man)) 4 mg tablets,dose lndzLwtldukgkalv6XIttm package wdxfcnydji537Dujtrmfy 30th, 2018 1:00amJuly 06, 2018 1:34pmPO PER PKG DIRFluticasone Propion-Salmeterol (Advair Hfa) 230-21 mcg/actuation HFA aerosol lljfrkrHvwjzwjdsjqa8VILLOXVFKTPDIZdnwk ytyxi27VoxfjqpqMay 13, 2018 1:00am October 12, 2023 2:01pmPrednisone 20 mg crdngiFalyjbtmkpbz92KXIQHz Dmdhfyjg108 July 06, 2018 1:ept2018 12:07amadminister with food or milk. Take 40mg for 3 days,then 20 mg for 3 days, then 10 mg for 3 days, then continue 5 mg as you used to takeCephalexin 500 mg fuvtltkZdhovwhqzcrz395EQAF Twice pxccf3082Tdmddggz2018 1:00ept2018 12:10amPrednisone 20 mg tiztciJqftkqsfctqv6RKITDshmgBqnikhoob 29th, 2019 12:15amApril 2023 3:45pmCarvedilol 12.5 mg pahjfqXsbyobmmvqfv42.5MGPOTwice dailySept2018 12:09amApril 2023 3:44pmAmoxicillin-Pot Clavulanate (Augmentin) 875- 125 mg nckougEpuotxghnsel9GTSCCG47U41633Rqlhlqago 30th, 2019 12:00amJune 2021 2:09pmEat yogurt or take probiotic while on antibiotic.Tamsulosin 0.4 mg capsuleDiscontinued0.4MGPODailyJune 2021 12:00amJune 2021 2:10pm Furosemide 20 mg gdslehTavleetmusib76GXJDNfnubEeww 2021 12:00amApril 2023 3:46pmFinasteride 5 mg nluexkAvalxmpmbjyu4WXUFTmgurRnbu 2021 12:00am September 11, 2023 3:39pmCarvedilol 6.25 mg WnycnaEcvmpfjppilz20.75MGPOTwice daily 1222021Hzathwaf 5th, 2024 1:00amNovember 2023 3:33pmFurosemide 20 mg LaftqfHmxinecrhmun34DOILECS@0800,361905516Btlsbxhf 2023 1:00amNovember 2023 1:34pmMultivitamin With Minerals wunhiwnYitraq4HVLZDJiznk443Pugxuoid 2023 1:00amUnknownAtorvastatin 40 mg CwuhqpClwiganrctwn39EPFTFzwgr evening 893651Zkpsjnzt 2023 1:00amOctober 2024 9:40amDofetilide 250 mcg BgjqcczGfxqqllgchjm123MXGFLBaxrl vgxvn753091Glykropc 2023 1:00amFebruary 2024 11:25amAspirin 81 mg Tablet,Delayed Release (Dr/Ec)Tjmtusjshcrm36CMKU Gmkin840727Lhszisnd 2023 1:00amDecember 2023 12:36pmDofetilide 125 mcg LffggqoAvdpprdvffgt376XYBRFNrzak jznwe98Weltzktr2024 1:00amJune 2024 3:11amAcetaminophen 500 mg RzjyavGpyiojaguziy6766CZOWZkjmw 6 hours as needed for Pain Scale 1 - 3 or olnts19Ygqpkvcs2024 1:00amJune 2024 4:46pmPantoprazole 40 mg Tablet,Delayed Release (Dr/Ec)Hahdmf89UBCJScpvd before uaieiubbn32Iczlzgfk2024 1:00amUnknownDofetilide 250 mcg bmrwznxSuacfb229 DHJNZH55GLctw 2024 12:00amUnknownMagnesium Hydroxide (Milk Of Magnesia) 400 mg/5 mL ylszmxilkrQolvcqbafgps0LQUQGwlfe as needed for constipationJune 2024 12:002024 3:07pmMenthol (Biofreeze (Menthol)) 4 % gel Rlwubsjduudl3WLTJWEMVVXEZESdlgp as needed for painJune 2024 12:002024 3:03amAcetaminophen 500 mg WckutrGzcwrsgxwcgi333LHZUZscef 4 hours as needed for Pain Scale 1 - 3 or feverJune 2024 12:002024 2:56pmPrednisolone Acetate 1 % drops,oqfsvlnzxlXsrawvaiwskg3YQXTXSZM-WTWUWwaxa November 11, 2024 12:00amOctober 2024 9:38amShinglesGuaifenesin 600 mg Tablet Extended Release 10zyNodnlibkbqqz3502RZMRJztdb jafiw1224Xilh 2024 12:002024 3:06pmPrednisone 10 mg ycvzcrCzjawrydbjon51ZEXCDvlqf478 November 12, 2024 12:002024 3:08pmtake 60mg (6 tabs aday) for 3 days, then 40mg (4tabs) for 3 days, then 20mg (2tabs) for 3 days, then 10mg (1tab) for 3 days.Cefpodoxime 200 mg wjlmqeVorbmyjsphyo728YVWBIjsdr xkpkx873Ejiy 2024 12:002024 3:05pmmust administer with a meal/food Valacyclovir 1 gram nuvjksChtxxwvyrpdv2235NUDFFgtge dailyAugust 2024 12:00amOctober 2024 9:39amshingles in eyeIpratropium-Albuterol 0.5 mg-3 mg(2.5 mg base)/3 mL solution for pfvydtlavkuoZqdjmi3LWRNOBSXOQUCGxpk times daily as needed for shortness of breathAugust 2024 12:00amUnknown Rivaroxaban (Xarelto) 20 mg HtcnzdPziwof54WMHBLptkm at bedtimeAugust 2024 12:00amFurther refills per Cardiology with Dr. Santana.UnknownOfloxacin 0.3 % vjscgEulvtw1YMMPXVQU-FXYAEkdv times dailyA[facility]t 2024 12:00aminstill 1 DROP IN THE AFFECTED EYE(S) FOUR TIMES DAILY start 3 (THREE) days prior to surgery, then immediately following surgery EVERY HOUR WHILE AWAKE, then the next day FOUR TIMES DAILY until next appointment for further directionsUnknownAspirin 81 mg Tablet,Delayed Release (Dr/Ec)Gvsrfb31KVIKBzzql610694Ympsqd 28th, 2025 12:00amUnknownSpironolactone 25 mg WtoxqzKbetahztgofy96.9FMJNHyitd210367Hxecar 28th, 2025 12:00amOctober 2024 9:40amValsartan 40 mg KylrzuQkzruaajnphf74MIPKYxvky179253Jiptic 28th, 2025 12:00amSeptember 2024 8:34pmFurosemide 40 mg BekrnfIixclzcrcdsu45HCWCAahnd at 7863352878Loyjdy 28th, 2025 12:00amSeptember 2024 8:36pmMagnesium Oxide 400 mg (241.3 mg magnesium) BltrkkBlzvzb458WBDHFfwlu463313Aqvzde 28th, 2025 12:00amUnknownDapagliflozin Propanediol 10 mg OfutjzWginxodhohav85NCFGUnhnj3478 [facility]2024 12:00amOctober 2024 9:40amPrednisone 10 mg tablet Zpgpqdlbmvyn38NIGNMi Uiuuguxn593Klvkso 28th, 2025 12:00amOctober 2024 1:50amTake 4 pills for 4 days Take 3 pills for 4 days Take 2 pills for 4 days Take 1 pill for 4 days then stopPotassium Chloride 20 mEq tablet,ER particles/nlnzdbpjKghvrqwnungm57GMUFBHypee dailyOct2024 12:00amOctober 2024 9:40amAzithromycin 250 mg DgutthXweesjouspzi852FOGMIpmnp033Gyepzvj 8th, 2025 12:00amOctober 2024 9:36amPrednisone 10 mg qenuvaHdsqpnsuowus98 MGPOAs Wkduujwe295Ptkwxmv 2024 12:00amOctober 2024 9:38amTake 4 pills for 4 days Take 3 pills for 4 days Take 2 pills for 4 days Take 1 pill for 4 days then stopAlbuterol Sulfate 2.5 mg /3 mL (0.083 %) solution for nebulizationDiscontinued2.5MGINHALATIONFour times dailyApr2023 12:00amFebruary 2024 11:25amCarvedilol 6.25 mg tabletDiscontinued6.25 MGPOTwice dailyApril 2023 12:00amMay 2023 2:00pmFluticasone Propionate 50 mcg/actuation spray,uotoizkhbyTeouzokdprok9BAUVSQQDNPPWGMDAdifz September 08, 2023 12:00amFebruary 2024 11:25amPantoprazole 40 mg tablet,delayed release (DR/EC)Wfwxthslwsvp66AGFFPedcmVilml 2023 12:00am February 18, 2024 7:41pmPrednisone 5 mg wodeesWohsnoplqkvq7ZIKCUbfmsSrkoi 2023 12:00amOctober 2023 11:35pmTamsulosin 0.4 mg capsuleDiscontinued0.4MG POTwice dailyApril 2023 12:00amNovember 2023 9:49amFinasteride 5 mg cpikuaJtsbku8BBDUQwbyr morningApr2023 12:00amUnknownFluticasone Propion-Salmeterol (Wixela Inhub) 500-50 mcg/dose blister with device Gbrzhkharbhr0JKUZDIZQDUVGHJxhnu dailyMa2023 12:00amMa2023 4:51pm Amiodarone 200 mg rpthecQmqumqcwuvwu331EUVMPxwcsZsrldeix 2023 1:00am March 25, 2024 3:33pmCarvedilol 6.25 mg bxbizjAvrdaonasosi57.75MGPOTwice dailyNovember 2023 3:29pmJanuary 2024 3:41pmCarvedilol 12.5 mg tpejrmYxzkdrdjpvvl91.5MGPOTwice dailyMay 2023 12:00amOctober 2023 2:51pmIpratropium Letcher 0.02 % solutionDiscontinued0.5MGINHALATIONFour times dailyMay 2023 12:00amSeptember 2023 8:53amLatanoprost 0.005 % drops Qltcbb8FUNOBKAH-VQPUBgmiqanGtx 2023 12:00amUnknownOxygen unitActive0.Route October 23, 2023 12:00am2 liters at HS and napping DME Cecily MedicalAlbuterol Sulfate (Ventolin Hfa) 90 mcg/actuation HFA aerosol qoweeweKkjidarlscfb0XZVT WJFGWWQQUGO6K as needed for Shortness Of Breath Or Wjuroekl4654Dybl 2023 3:23pmJune 2023 5:53pmBullous emphysema Emphysema, unspecifiedDispense 6 inhalers (2 per month) Bcjgpyehdnh-Spcvbguou-Ruurffwi (Trelegy Ellipta) 200-62.5-25 mcg blister with kkflggKxmmjwmguugl8DSXXRTKCXJXKVSgtby8744Hmdz 2023 12:00amAugust 2024 3:06pmBullous emphysema Emphysema, unspecifiedRinse after useCarvedilol 12.5 mg fpluvdSoxbyjsutshl43.5MG POTwice rjrlw37205Mvrmmzv 2023 2:50pmNovember 2023 1:50pmBaclofen 10 mg umhgxsVsoaonvkxuoq75YEIHCqjs times daily as needed for muscle fdoim5912 March 08, 2024 12:00amNovember 2023 3:54pmMetoprolol Succinate 25 mg tablet extended release 24 ezWcadph50ONLCZkxdy morningJanuary 2024 1:00am UnknownFurosemide 20 mg hvlwfsIphtybrvaykm73NIJSUydcm as needed for edemaMayuary 2024 1:00amAugust 2024 11:58amRight leg edemaMagnesium Oxide 400 mg (241.3 mg magnesium) lfexaoUkyjprrdfxjg678MPBPUdbgfBizeean 2024 1:00am January 05, 2025 3:03amAlbuterol Sulfate 90 mcg/actuation HFA aerosol inhaler Uvnzpx4TAZIYDEHFNFIPUIhazc 6 hours as needed for shortness of breath or wheezing January 21, 2025 12:00amUnknownPotassium Chloride (Klor-Con 10) 10 mEq tablet extended jtxioduGxejorhgknvz81HVYNPBvhlr616057Rhmw 2024 12:13pmOctober 2024 1:38pm Immunizations Immunization Event Date Not Given Reason Dose Number Chip D[employer] Lot Number Reason(s) Given Vaccine Information Statement (VIS) Detail Administration Location COVID-19 mRNA, Comirnaty ([employer]) July 22 COVID-19 mRNA, Comirnaty ([employer])August 12OVID-19 mRNA, Comirnaty ([employer])March 26, 2021Fluzone TIV High-Dose 65YR+March 25, [id number] [facility] Hospital[facility] 65YR+February 18, [id number] [facility]tr[facility], unspecified formulationNovember , 2015influenza, unspecified formulationOctober 2018influenza, unspecified formulationSeptember 2019influenza, unspecified formulationOctober 2021influenza, unspecified formulationOctober neumococcal Conjugate Vaccine, 13 valentFebruary 2016Pneumococcal Polysacc. Vaccine, 23 valent June 16, 2010Pneumococcal Polysacc. Vaccine, 23 valentFebruary 2016 Tetanus, Diphtheria adult, 5 Lf pres free absOctober 2016 Procedures Procedure Date Performed Status XR chest 1V portable January 04, 2025 10:00pm c ompleted CT angio chest PE protocol January 05, 2025 12: 44am completed Relevant Diagnostic Tests and/or Laboratory Data Laboratory Results Test Collection Date/Time Result Date/Time Result Interpretation Reference Range Result Comment Performing Site Basophils # (Auto) January 17, 2025 12:54pm January 17, 2025 12:54pm 0.0 10 3/uL 0.0-0.1B-Type Natriuretic PeptideSept2024 12:54pmSeptember 2024 12:65to4546.0 pg/mLAbove upper panic limits<=900.0RESULTS CALLED TO KRISTIN TAYLOR, LPNMagnesium LevelSeptember 2024 12:54pmSeptember 2024 12:54pm 1.9 mg/dL1.8-2.4Anion GapSeptember 2024 12:54pmSeptember , 2024 12:54pm 11.3Basophils # (Auto)January 30, 2025 12:18pmSeptember 2024 12:18pm 0.0 10 3/uL0.0-0.1Anion GapSeptember 2024 12:18pmSeptember 2024 12:18pm12.9Basophils (%) (Auto)January 17, 2025 12:54pmSeptember 2024 12:54pm0.1 %Below low normal0.2-2.0BUN/Creatinine RatioSeptember 2024 12:54pmSeptember 2024 12:54pm27.8Basophils (%) (Auto)January 30, 2025 12:18pmSeptember 2024 12:18pm0.4 %0.2-2.0BUN/Creatinine RatioSeptember 2024 12:18pmSeptember 2024 12:18pm16.8Eosinophils # (Auto)January 17, 2025 12:54pmSeptember 2024 12:54pm0.1 10 3/uL0.0-0.7Blood Urea NitrogenSeptember 2024 12:54pmSeptember 2024 12:54pm32.0 mg/dLAbove high normal7.0-18.0Eosinophils # (Auto)January 30, 2025 12:18pmSeptember 2024 12:18pm0.3 10 3/uL0.0-0.7Blood Urea NitrogenSeptember 2024 12:18pmSeptember 2024 12:18pm21.0 mg/dLAbove high normal7.0-18.0 Eosinophils (%) (Auto)January 17, 2025 12:54pmSeptember 2024 12:54pm0.3 %Below low normal0.9-7.0Calcium LevelSeptember 2024 12:54pmSeptember 2024 12:54pm8.5 mg/dL8.5-10.1Eosinophils (%) (Auto)January 30, 2025 12:18pm January 30, 2025 12:18pm5.0 %0.9-7.0Calcium LevelSeptember 2024 12:18pmSeptember 2024 12:18pm8.8 mg/dL8.5-10.1HematocritSeptember 2024 12:54pmSeptember 2024 12:54pm33.4 %Below low jeykka16.0-54.0Chloride LevelSeptember 2024 12:54pmSeptember 2024 12:44ss311 mmol/L98-107 HematocritSeptember 2024 12:18pmSeptember 2024 12:18pm32.1 %Below low fagcnj94.0-54.0Chloride LevelSeptember 2024 12:18pmSeptember 2024 12:95gk638 mmol/O97-106JdbuionrqsDmgwprndq 2024 12:54pmSeptember 2024 12:54pm11.0 g/dLBelow low kobmwq84.0-18.0Carbon Dioxide LevelSeptember 2024 12:54pmSeptember 2024 12:54pm29.8 mmol/L21.0-32.0HemoglobinSeptember 2024 12:18pmSeptember 2024 12:18pm10.4 g/dLBelow low jijkom35.0-18.0 Carbon Dioxide LevelSeptember 2024 12:18pmSeptember 2024 12:18pm26.2 mmol/L21.0-32.0Immature Granulocyte # (Auto)January 17, 2025 12:54pmSeptember 2024 12:54pm0.29 10 3/uLAbove high normal0.00-0.03CreatinineSeptember 2024 12:54pmSeptember 2024 12:54pm1.15 mg/dL0.70-1.30Immature Granulocyte # (Auto)January 30, 2025 12:18pmSeptember 2024 12:18pm0.02 10 3/uL 0.00-0.03CreatinineSept2024 12:18pmSeptember 2024 12:18pm1.25 mg/dL0.70-1.30Immature Granulocyte % (Auto)January 17, 2025 12:54pmSeptember 2024 12:54pm1.6 %Above high normal0.0-0.5Estimated GFR () January 17, 2025 12:54pmSept2024 12:54pm>60>=60 mL/min/1.73m 2 Immature Granulocyte % (Auto)January 30, 2025 12:18pmSeptember 2024 12:18pm0.4 %0.0-0.5Estimated GFR ()January 30, 2025 12:18pm January 30, 2025 12:18pm>60>=60 mL/min/1.73m 2Lymphocytes # (Auto)January 17, 2025 12:54pmSeptember 2024 12:54pm1.9 10 3/uL1.2-3.8Estimated GFR (Non- AmericanSept2024 12:54pmSeptember 2024 12:54pm>60 >=60 mL/min/1.73m 2Lymphocytes # (Auto)January 30, 2025 12:18pmSeptember 2024 12:18pm1.0 10 3/uLBelow low normal1.2-3.8Estimated GFR (Non- AmericanSeptember 2024 12:18pmSeptember 2024 12:24xh57Qyryn low normal>=60 mL/min/1.73m 2Lymphocytes (%) (Auto)January 17, 2025 12:54pm January 17, 2025 12:54pm10.5 %Below low ddkapz96.5-60.0Glucose LevelSept2024 12:54pmSeptember 2024 12:54pm76 mg/qL70-966Jmmgslxiips (%) (Auto) January 30, 2025 12:18pmSeptember 2024 12:18pm18.1 %Below low normal 20.5-60.0Glucose LevelSeptember 2024 12:18pmSeptember 2024 12:18pm99 mg/pY89-416Bzki Corpuscular HemoglobinSeptember 2024 12:54pmSeptember 2024 12:54pm28.6 pg25.9-34.0Potassium LevelSeptember 2024 12:54pmSeptember 2024 12:54pm3.1 mmol/LBelow low normal3.5-5.1Mean Corpuscular Hemoglobin January 30, 2025 12:18pmSeptember 2024 12:18pm29.1 pg25.9-34.0 Potassium LevelSeptember 2024 12:18pmSeptember 2024 12:18pm4.1 mmol/L3.5-5.1Mean Corpuscular Hemoglobin ConcentSeptember 2024 12:54pm January 17, 2025 12:54pm32.9 g/dL29.9-35.2Sodium LevelSeptember 2024 12:54pmSeptember 2024 12:22xg534 mmol/O365-450Yozi Corpuscular Hemoglobin ConcentSeptember 2024 12:18pmSeptember 2024 12:18pm32.4 g/dL 29.9-35.2Sodium LevelSeptember 2024 12:18pmSeptember 2024 12:27gn708 mmol/F407-719Ssiv Corpuscular VolumeSeptember 2024 12:54pmSeptember 2024 12:54pm86.8 fL80.0-94.0Mean Corpuscular VolumeSeptember 2024 12:18pm January 30, 2025 12:18pm89.9 fL80.0-94.0Monocytes # (Auto)January 17, 2025 12:54pmSeptember 2024 12:54pm1.0 10 3/uLAbove high normal0.3-0.8 Monocytes # (Auto)January 30, 2025 12:18pmSeptember 2024 12:18pm0.5 10 3/uL0.3-0.8Monocytes (%) (Auto)January 17, 2025 12:54pmSeptember 2024 12:54pm5.5 %1.7-12.0Monocytes (%) (Auto)January 30, 2025 12:18pmSeptember 2024 12:18pm9.2 %1.7-12.0Mean Platelet VolumeSept2024 12:54pm January 17, 2025 12:54pm9.8 fL9.5-13.5Mean Platelet VolumeSeptember 2024 12:18pmSeptember 2024 12:18pm9.3 fLBelow low normal9.5-13.5 Neutrophils # (Auto)January 17, 2025 12:54pmSeptember 2024 12:54pm14.6 10 3/uLAbove high normal1.4-6.5Neutrophils # (Auto)January 30, 2025 12:18pm January 30, 2025 12:18pm3.8 10 3/uL1.4-6.5Neutrophils (%) (Auto)January 17, 2025 12:54pmSept2024 12:54pm82.0 %Above high .0-75.0 Neutrophils (%) (Auto)January 30, 2025 12:18pmSeptember 2024 12:18pm 66.9 %43.0-75.0Platelet CountSept2024 12:54pmSeptember 2024 12:65he475 10 3/rP549-444Izwsbigg CountSeptember 2024 12:18pmSeptember 2024 12:78fu303 10 3/fI835-320Hld Blood CountSept2024 12:54pm January 17, 2025 12:54pm3.85 10 6/uLBelow low normal4.70-6.10Red Blood Count January 30, 2025 12:18pmSeptember 2024 12:18pm3.57 10 6/uLBelow low normal4.70-6.10Red Cell Distribution WidthSept2024 12:54pmSeptember 2024 12:54pm19.4 %Above high qgyrhv08.0-15.0Red Cell Distribution Width January 30, 2025 12:18pmSeptember 2024 12:18pm20.3 %Above high normal 11.0-15.0Corrected White Blood CountSept2024 12:54pmSeptember 2024 12:54pm17.9 10 3/uLAbove high normal4.0-11.0Corrected White Blood Count January 30, 2025 12:18pmSeptember 2024 12:18pm5.6 10 3/uL4.0-11.0 Corrected White Blood CountAugust 2024 4:50amAugust 2024 5:27am9.4 10*3/uL4.1-10.5[facility] [id number] [address] [facility] 23914Gbcgblgekdd WBC CountAugus2024 3:20amAugu2024 3:57am8.6 10*3/uL4.1-10.5F[facility] [id number] [address] [facility] 41321Gyy Blood CountAugust 2024 4:50amAugust 2024 5:27am 3.23 10*6/uLBelow low normal3.90-5.60[facility] [id number] [address] [facility] 17081BzcewavhpgUshwhx 2024 4:50amAugust 2024 5:27am9.1 g/dLBelow low iqtdys44.0-17.0[facility] [id number] [address] [facility] 22156CfrnakrievIfsfsp 2024 4:50amAugust 2024 5:27am26.8 %Below low earfcj19.8-50.0[facility] [id number] [address] [facility] 00975Lxtr Corpuscular VolumeAugust 2024 4:50amAugust 2024 5:27am82.9 fLBelow low haewzs42.5-101[facility] [id number] [address] [facility] 95969Blat Corpuscular HemoglobinAugust 2024 4:50amAugust 2024 5:27am28.2 pg27.5-35.2F[facility] [id number] [address] [facility] 20478Nhxq Corpuscular Hemoglobin ConcentAugust 2024 4:50am January 07, 2025 5:27am34.0 g/dL32.5-35.6F[facility] [id number] [address] [place] [address] 73206Fwq Cell Distribution WidthAugust 2024 4:50amAugust 2024 5:27am18.1 %Above high beofzm27.0-14.8[facility] [id number] [address] [facility] 75470Fefmxhhq CountAugust 2024 4:50amAugu2024 5:27am 265 10*3/yI021-995OixaqmllgMercy Memorial Hospital Ctr [id number] [address] [facility] 63952Wixz Platelet VolumeAugust 2024 4:50amAugust 2024 5:27am7.8 fL6.6-10.1F[facility] [id number] [address] [place] [address] 30421Jzgdndmi Distribution WidthAugust 2024 10:10pmAugust 2024 10:31pm17.47 %0.00-20.00[facility] [id number] [address] [place] [address] 94414Jgmojpvajfd (%) (Auto)January 05, 2025 3:20amAugu2024 3:57am93.4 %.[facility] [id number] [address] [facility] 19806Trimgkvjsdo (%) (Auto)January 05, 2025 3:2024 3:57am5.1 %.[facility] [id number] [address] [facility] 84285Abpjaozll (%) (Auto)January 05, 2025 3:2024 3:57am1.3 %.[facility] [id number] [address] [facility] 94032Nvpkylfbfai (%) (Auto)January 05, 2025 3:2024 3:57am0.1 %.[facility] [id number] [address] [facility] 96355Hqlqlehlq (%) (Auto)January 05, 2025 3:2024 3:57am0.1 %.[facility] [id number] [address] [facility] 28119Alsfochkp RBC Relative Count (auto)January 05, 2025 3:20am January 05, 2025 3:57am0.0 /100{WBC}0-0.5F[facility] [id number] [address] [facility] 45104Ffoylkafmpz # (Auto)January 05, 2025 3:2024 3:57am8.1 10*3/uLAbove high normal1.8-7.7F[facility] [id number] [address] [facility] 73704Ldwspwpthmu # (Auto)January 05, 2025 3:2024 3:57am0.4 10*3/uLBelow low normal1.00-4.8[facility] [id number] [address] [facility] 31862Htnnvtfpx # (Auto)January 05, 2025 3:2024 3:57am0.1 10*3/uL0.0-0.8[facility] [id number] [address] [facility] 69727Nrqyizqqhdo # (Auto)January 05, 2025 3:202024 3:57am0.0 10*3/uL0.0-0.45[facility] [id number] [address] [facility] 66753Isnnurrao # (Auto)January 05, 2025 3:202024 3:57am0.0 10*3/uL0.0-0.2F[facility] [id number] [address] [place] [address] 18183Dhzdpdizclw TimeAugust 2024 10:10pmAugust 2024 11:00pm18.9 sAbove high normal9.0-12.9A hematocrit value greater than 55% may lead to inaccurate results in coagulation testing. Patientshaving hematocrit values >55% require a special collection tube for coagulation studies. Please c ontact the laboratory at [phone] for redraw instructions.[facility] [id number] [address] [facility] 35266Dvkirtkyk Time International RatioAugust 2024 10:10pm January 04, 2025 11:00pm1.7INR Therapeutic Range A) Pre- and Peroperative OAT started two weeks before surgery. NOT HIP SURGERY: 1.5 - 2.5 HIP SURGERY: 2 - 3B) Primary and secondary prevention of venous THROMBOSIS: 2 - 3C) Active venous thrombosis, pulmonary embolismand prevention of recurrent venous thrombosis: 2 - 3D) Prevention of arterial thromboembolismincluding patients with mechanical heart valves: 3 - 4.5F[facility] [id number] [address] [place] [address] 03313Yufkjdfdr Partial Thromboplast TimeAugust 2024 7:55am January 06, 2025 8:46am63.1 sAbove high udwgez08.1-36.5A hematocrit value greater than 55% may lead to inaccurate results in coagulation testing. Patients having hematocrit values >55% require a special collection tube for coagulation studies. Please contact the laboratory at [phone] for redraw instructions. [facility] [id number] [address] [facility] 22124Qelbmtl Anti-Xa Act, UnfractionatedAugust 2024 10:10pm January 05, 2025 1:36am1.30 [IU]/mLAbove upper panic limits0.30-0.70Critical valueresult calledat 0136 on 01/05/25 Use the aPTT protocol when triglycerides are > 800 mg/dL,total bilirubin is > 20 mg/dL and/or patient has received aDOAC, Fondaparinux or LMWH within 72 hours AND baselineanti-Xa level is > 0.7 units/mLMercy Memorial Hospital Ctr [id number] [address] [facility] 48208Adjpsti LevelAugust 2024 4:10a2024 5:09am 132 mg/dLAbove high vricpg12-182PSK recommended reference rangeRandom Glucose Reference Range is dependent on time and content of last meal. Glucose of more than 200 mg/dL in a nonstressed, ambulatory subject supports the diagnosisof Diabetes Mellitus.[facility] [id number] [address] [facility] 15192Lmaxz Urea NitrogenAugust 2024 4:10a2024 5:09am45 mg/dLAbove high normal7-25[facility] [id number] [address] [facility] 90251XyrrwmnzpgDrlgne 28th, 2025 4:10a2024 5:09am1.15 mg/dL0.70-1.30[facility] [id number] [address] [facility] 73440Clipthyfv GFR (CKD-EPI)January 09, 2025 4:10a2024 5:09am> 60.0 mL/MinMercy Memorial Hospital Ctr [id number] [address] [facility] 54629Fxjvxl LevelAugust 2024 4:10a2024 5:92is824 mmol/T888-443LzcbfmzefMercy Memorial Hospital Ctr [id number] [address] [place] 1473170Potassium LevelAugust 2024 4:10a2024 5:09am 4.9 mmol/L3.5-5.1F[facility] [id number] [address] [place] 1473170Chloride LevelAugust 2024 4:10a2024 5:09am 104 mmol/B82-228HjjlxuttrMercy Memorial Hospital Ctr [id number] [address] [place] 1473170Carbon Dioxide LevelAugust 2024 4:10a2024 5:09am26.9 mmol/L21.0-31.0[facility] [id number] [address] [facility] 91286Bsdkf GapAugust 2024 4:10a2024 5:09am11.0 mEq/L6.0-15.0[facility] [id number] [address] [place] 1473170Calcium LevelAugust 2024 4:10a2024 5:09am 8.8 mg/dL8.6-10.3F[facility] [id number] [address] [facility] 78254Urcguxiya LevelAugust 2024 4:10a2024 5:09am 2.3 mg/dL1.9-2.7F[facility] [id number] [address] [facility] 52361Bgvyp ProteinAugust 2024 10:10pmAugust 2024 10:51pm 6.6 g/dL6.4-8.9[facility] [id number] [address] [facility] 27773KnaoabbNqslbn 2024 10:10pmAugust 2024 10:51pm3.8 g/dL3.5-5.7F[facility] [id number] [address] [facility] 13850NhsbvjzcFbdnnv 2024 10:10pmAugust 2024 10:51pm2.8 g/dLMercy Memorial Hospital Ctr [id number] [address] [facility] 65854Direfxz/Globulin RatioAugust 2024 10:10pmAugust 2024 10:51pm1.4F[facility] [id number] [address] [facility] 82253Kxsiv BilirubinAugust 2024 10:10pmAugust 2024 10:51pm0.4 mg/dL0.3-1.0[facility] [id number] [address] [facility] 69507Eopnyznmx Amino Transf (AST/SGOT)January 04, 2025 10:10pm January 04, 2025 10:51pm21 U/K47-80BtzbriwipMercy Memorial Hospital Ctr [id number] [address] [facility] 01243Dlqohdy Aminotransferase (ALT/SGPT)January 04, 2025 10:10pm January 04, 2025 10:51pm9 U/L7-52[facility] [id number] [address] [facility] 48281Bcftetzy PhosphataseAugust 2024 10:10pmAugust 2024 10:60vq377 U/LAbove high oiyhcb34-165YwibzptdnMercy Memorial Hospital Ctr [id number] [address] [facility] 69985Uhtva Creatine KinaseAugust 2024 10:10pmAugust 2024 10:51pm30 U/L41-768XpqqacrowMercy Memorial Hospital Ctr [id number] [address] [place] [address] 81715Vwxirvrb I High SensitivityAugust 2024 11:12amAugust 2024 12:60ys630 ng/LAbove upper panic limits0-20Critical Result : Called to and read back by: NISREEN GUZMAN at: 01/05/2025 12:36:23 by:DIANEThe Troponinunits of report have been changed to meet the Chest Pain Accreditation requirement, element EC5.M1l2. Troponin units are changed from pg/ml to ng/L. Also, the decimal is removed and results are in whole numbers.[facility] [id number] [address] [facility] 84039Q-Iobv Natriuretic PeptideAugust 2024 10:10pmAugust 2024 10:98fe695.0 pg/mLAbove high normal5-100[facility] [id number] [address] [facility] 83737Kmwtnmxf Creatinine Clearance (ChemAugust 2024 4:10am January 09, 2025 5:09am51.32[facility] [id number] [address] [facility] 95836Qlsvjcnx Blood pHAugust 2024 10:19pmAugust 2024 10:23pm7.357.35-7.45Point of Care testingArterial Blood Partial Pressure CO2 January 04, 2025 10:19pmAugust 2024 10:23pm42.2 mm[Hg]35.0-45.0Point of Care testingArterial Blood Partial Pressure I5Kkidpk 2024 10:19pmAugust 2024 10:23pm91.5 mm[Hg]80.0-100.0Point of Care testingArterial Blood HCO3 January 04, 2025 10:pmAugust 2024 10:pm23.0 mmol/L23.0-29.0Point of Care testingArterial Blood Base ExcessAugust 2024 10:19pmAugust 2024 10:23pm-2.4 mmol/L-3.0-3.0Point of Care testingArterial Blood Oxygen Saturation January 04, 2025 10:19pmAugust 2024 10:23pm96.7 %95.0-100.0Point of Care testingArterial Blood Oxygen ContentAut 2024 10:19pmAugust 2024 10:23pm6.8 mmol/L6.6-9.7Point of Care testingArterial Blood Total IM9Uquzsd 2024 10:19pmAugust 2024 10:23pm24.3 mmol/L23.0-27.0Point of Care jpnuqcrStG9Jatsps 2024 10:19pmAugust 2024 10:23pm32 %Point of Care testingBlood Gas Sample SiteAugust 2024 10:19pmAugust 2024 10:23pm Right radialPoint of Care testingBlood Gas Critical ValueAugust 2024 10:19pmAugust 2024 10:23pmSee commentCritical Value called on: 01/04/2025 at 22:22Point of Care testing Diagnostic Imaging Reports Author Juliocesar Varela [facility] HospitalAuthoredAucibola general hospital 2024 10:44amReportDictated Date/TimeDictated ByStatusRadiology ReportAusanta fe indian hospitalt 2024 10:44Elizabeth Varela II MDcompleteKind[facility] [place] [address] [place] [address] XRay Report Signed Patient: Carson Mcadams MR#: [id number] : 1955 Acct:[id number] Age/Sex: 69 / M ADM Date: 5 Loc: Room: [address] [place] [address] Type: ADM IN Attending Dr: Altaf Jones [...] Varela M.D. 01/05/2025 10:46 AM Dictation Location: [place] [address] Transcribed By: [facility] 01/05/25 1046 Dictated By: Juliocesar Varela II, MD 01/05/25 1044 Signed By: <Electronically signed by Juliocesar Varela II, MD in [place]> 01/05/25 1046 Author Juliocesar Varela [facility] HospitalAuthoredAucibola general hospital 2024 11:38amReportDictated Date/TimeDictated ByStatusRadiology ReportMarine 2024 11:38amMarjulianna Varela II [place] [address] [place] [address] CT Scan Report Signed Patient: Carson Mcadams MR#: [id number] : 1955 Acct:[id number] Age/Sex: 69 / M ADM Date: 5 Loc: Room: [address] [place] [address] Type: ADM IN Attending Dr: Altaf Jones [...] Varela M.D. 01/05/2025 11:46 AM Dictation Location: [place] [address] Transcribed By: [facility] 01/05/25 1146 Dictated By: Juliocesar Varela II, MD 01/05/25 1138 Signed By: <Electronically signed by Juliocesar Varela II, MD in [place]> 01/05/25 1146 Vital Signs Vital Reading Result Reference Range Collection Date/Time Height 72 [in_i] January 06, 2025 2:98wxYlyvqx61.20 kgAugust 2024 5:58amBody Temperature 97.6 [degF]97.6-99.0Augus2024 4:00pmHeart Rate98 /oze73-779Znwarn 2024 4:00pmRespiratory rate18 /ugx04-83Gecizs 28th, 2025 4:00pmOxygen saturation by Pulse ufjnnhnv96 %95-100August 2024 4:00pmBP Psgdadzf101 mm[Hg]100-140 January 09, 2025 4:00pmBP Uivnpeyoo69 mm[Hg]60-100August 2024 4:00pm Inhaled oxygen mxdnphhmbuqpl80 %January 05, 2025 11:18amInhaled oxygen flow rate3 L/minAugus2024 4:74mgNopihf11 [in_i]January 21, 2025 1:15pm Bljjxs91.68 kgSeptember 2024 1:15pmHeart Rate92 /ebp27-206Blxbizzpt 9th, 2025 1:15pmRespiratory rate20 /wir78-34Ityrzzoih 2024 1:15pmOxygen saturation by Pulse azxrhvhd27 %95-100September 2024 1:15pmBP Txpcgdjx030 mm[Hg]100-140September 2024 1:15pmBP Vhzxbiiww98 mm[Hg]60-100September 2024 1:15pmBMI (Body Mass Index)18.4 kg/k1Zawobxmrq 2024 1:62uqDhupgh22 [in_i]February 17, 2025 3:58yoHvluvi25.40 kgOctfrankfort regional medical center 2024 6:04amBody Ycppqxmkium94.0 [degF]97.6-99.0Octfrankfort regional medical center 2024 9:45amHeart Rate79 /orx73-643 February 19, 2025 12:05pmRespiratory rate20 /uvj59-90Dufdnec 2024 12:05pm Oxygen saturation by Pulse ttoblkjq365 %95-100Octfrankfort regional medical center 2024 9:45amBP Wsmlgmit177 mm[Hg]100-140Octfrankfort regional medical center 2024 9:45amBP Eciiepzzm52 mm[Hg]60-100 February 19, 2025 9:45amInhaled oxygen flow rate3 L/minOctfrankfort regional medical center 2024 4:00pm Advance Directives Advance Directive Response Recorded Date/ Time Advance Directives No April 9:38pm Insurance Providers Guarantor Jennifer Fischer Address [address] [facility] [facility] [address]Jtydpgy Info.Home Phone: Coverage Status Update:2025 Payer Group Member ID Coverage Type Subscriber Relationship to Subscriber Effective Date Expiration Date Medicare Id: [id number] Ferguson , D Id: [id number] [address] [address] Home Phone: [facility]Aust[facility] Id: [id number] Ferguson , D Id: [id number] [address] [facility] [facility] [address] Home Phone: self Encounters Encounter Location(s) Arrival/Admit Date Discharge/Departure Date Discharge/Departure Disposition Provider(s) Departed Referred -Pre-Surgica l Testing January 02, 2025 3:23pm January 02, 2025 3:24pm Discharged to home care or self care (routine discharge) Josue Beavers MD Discharged Inpatient -[facility] January 05, 2025 1:53am January 09, 2025 5:15pm Discharged/transfer red to home under care of organized home health se Jostin Larose DO Non-patient / Non-visit -[facility] Augus t 2024 7:40am Misael Hart-patient / Zfq-rgdlj-Xjpwj [employer] January 17, 2025 12:54pmConcepción Godoy APRNDeparted Physician/Provider Office Visit-[facility] PulmonarySeptember 2024 1:09pmSept2024 1:36pmDischarged to home care or self care (routine discharge)Carlos Manuel Carrillo-patient / Uhv-zjmzx-Kcnmk [employer] 2024 12:18pmBentley Arguelles-patient / Fkx-lumae-[facility] PulmonaryOctober 2024 2:24amBCarlos Manuel Ashraf-patient / Far-djlvv-UVZC[facility] HospitalOctober 2024 2:40pmLa Hart Sptyegqp-Ona-Tplbztfu TestingOctober 2024 9:43amOctober 2024 9:44am Discharged to home care or self care (routine discharge)Josue Beavers MD Recent Diagnosis Onset Date Admit Date Takotsubo cardiomyopathy 2024January 05, 2025 1:53am Acute on chronic hypoxic respiratory failure Unk nown January 05, 2025 1:53am History of sarcoidosis Unknown January 052024 1:53am Non-ST elevation OK (NSTEMI) Unknown Dec 1:53am Bullous emphysema Unknown January 21, 2025 1:09pm Chronic respiratory failure with hypoxia Unknown January 21, 2025 1:09pm Bronchiectasis, uncomplicated Unknown Se ptember 2024 1:09pm Cardiac sarcoidosis Unknown January 1:09pm History of aspergilloma Unknown Septembe r 2024 1:09pm Pulmonary sarcoidosis Unknown January 21, 2025 1:09pm Acute on chronic hypoxic respiratory failure Unk nown February 16, 2025 2:24am Bronchiectasis, uncomplicated Unknown Oc tober 2024 2:24am Cardiac sarcoidosis Unknown February 16, 2025 2:24am Chronic HFrEF (heart failure with reduced ejection fraction) Unknown February 16, 2025 2:24am COPD exacerbation Unknown February 16, 2 025 2:24am History of aspergilloma Unknown February 16, 2025 2:24am Hx of sarcoidosis Unknown February 16, 2 025 2:24am Myalgia Unknown February 16 2:24am Pulmonary sarcoidosis Unknown February 2:24am Functional Status Observation Response Date Recorded Dressing Patient is Progressing Toward Ba seline January 09, 2025 4:09pm Eating Patient is Progressing Toward Ba seline January 09, 2025 4:09pm Bathing Patient is Progressing Toward Ba seline January 09, 2025 4:09pm Disability Status Patient is Progressing Toward Baseline January 09, 2025 4:09pm Mental Status Observation Response Date Recorded Cognitive Status Patient is Progressing Toward B aseline January 09, 2025 4:09pm Cognitive/Mental Status Assessments Assessments Diagnosis Onset Date Resolution Status Admit Date Takotsubo cardiomyopathy 2024 acuteAugust 2024 1:53amAcute on chronic hypoxic respiratory failure inactiveAugust 2024 1:53amHistory of sarcoidosisinactiveAugust 2024 1:53amNon-ST elevation OK (NSTEMI)inactiveAugust 2024 1:53amBullous emphysemaacuteSeptember 2024 1:09pmChronic respiratory failure with hypoxia acuteSept2024 1:09pmBronchiectasis, uncomplicatedinactiveSept2024 1:09pmCardiac sarcoidosisinactiveSept2024 1:09pmHistory of aspergillomainactiveSept2024 1:09pmPulmonary sarcoidosisinactive January 21, 2025 1:09pmAcute on chronic hypoxic respiratory failureinactive February 16, 2025 2:24amBronchiectasis, uncomplicatedinactiveOct2024 2:24amCardiac sarcoidosisinactiveOct2024 2:24amChronic HFrEF (heart failure with reduced ejection fraction)inactiveFebruary 16, 2025 2:24amCOPD exacerbationinactiveFebruary 16, 2025 2:24amHistory of aspergillomainactive February 16, 2025 2:24amHx of sarcoidosisinactiveFebruary 16, 2025 2:24amMyalgia inactiveOct2024 2:24amPulmonary sarcoidosisinactiveOct2024 2:24am Plan of Treatment Author Nick Muniz [facility]2024 1:32pmPatient is stable on present therapy. Will make no changes to present therapy as presently prescribed. Patient states no refills are required at this time. Patient will call when refills are required. All questions were answered. The patient was advised to call us if there are any new respiratory issues or concerns. Future Tests Future scheduled test information is unavailable Pending Tests Pending diagnostic test information is unavailable Future Visits Future appointment information is unavailable Future Procedures Procedure Name Ordered Date Scheduled Date Initiate Home Health January 09, 2025 1:26pm Admit Status OrderAugust 2024 1:53amAugust 2024 1:53amDischarge OrderMarine 2024 11:58amAugust 2024 11:58amInitiate Home Health February 19, 2025 1:41pm1 DaysDiet SupplementFebruary 17, 2025 3:25pmOctober 2024 3:25pmAdmit Status OrderOctober 2024 2:24amOctober 2024 2:24amDischarge OrderOctober 2024 1:39pmOctober 2024 1:39pmConsult to PulmonologyFebruary 16, 2025 3:41amOctober 2024 3:42am Future Medications Future medication information is unavailable Patient Instructions Instruction Admit Date Know your Meds January 05, 2025 1: 53am Know your Meds February 16, 2025 2: 24am Goals Acute Goals Author Authored Date Exhibit optimal tissue perfu filippo * Exhibits adequate oxygenation and ventilation * Exhibits adequate cardiac output * Regains stable cardiac rhythm * Maintains optimal activity level * [facility]aint[facility] 5:24pmSkin integrity [facility] 5:24pmMaintain/increase activity levels * Understands factors that may lead to activity intolerance * Helps perform self care activities * Maintains maximum range of motion * Increase/regain muscle mass and strength * Maintains VS WNL during activity * Maintain intact skin integrity Updated: 06/27/2022[facility] 2024 5:24pmFall Prevention 2022[facility] 2024 5:24pm Preferences Type Detail Treatment Intervention Code Status: Full Code
[2025-03-16] VITALS (16 sets, daily range): BP systolic 122–152; BP diastolic 70–89; PULSE 90–102; TEMP 36.4–36.6; O2SAT 92–100; BMI 19.5; BMI 18.0
--- NOTE | 2025-03-16 14:09 | XR_ITS ---
The [address] [address] Patient Name: MARY SMALL MRN: [id number] date: 1955 Sex: M Assigned Patient Location: ER Current Patient Location: ED.MAIN Accession/Order Number: [id number] Exam Date: 03/16/2025 14:27 Report Date: 03/16/2025 15:33 At the request of: JOSE ALFARO Procedure: XR chest 1V PA CHEST: CLINICAL HISTORY: shortness of breath COMPARISON: 03/06/2024 Enlarged cardiomediastinal mediastinal silhouette. Bilateral mediastinal and hilar calcified granulomas. Stable scarring within the upper lungs. Bilateral effusions and likely interstitial scarring noted. No pneumothorax. XR/XR chest 1V IMPRESSION: Stable chronic findings possibly sequela of long-standing granulomatous process. Negative for acute or progressive pleural-parenchymal disease. Impression dictated by: Prudencio Iyer M.D. 03/16/2025 3:33 PM Dictation Location: [place] [address] Electronically authenticated by: [id number] Y Date: 03/16/2025 15:33
--- NOTE | 2025-03-16 14:09 | ECG_ITS ---
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 Measurements Intervals [place] Rate: 93 P: 55 NV: 194 QRS: -30 QRSD: 132 T: 64 QT: 404 QTc: 455 Interpretive Statements 1100 Sinus rhythm 1570 with occasional ventricular premature complexes 2330 Nonspecific intraventricular conduction block 7202 Moderate left axis deviation 9150 abnormal ECG Compared to ECG 03/13/2024 12:36:33 Ventricular premature complex(es) now present Left-axis deviation now present Atrial fibrillation no longer present Possible ischemia no longer present Electronically Signed On 03-16-2025 16:11:35 EST by CRYSTAL STEINBERG M.D.
--- OUTSIDE RECORDS SUMMARY | 2025-03-16 14:10 | XMS_ITS | Clinical Summary ---
Author Organization [facility] Address [address] [place] [address] Phone Care Team Providers Care Chief Internal Auditor Name Role Phone Adam Wylie Primary Care Provider [phone] Allergies No known active allergies Medications MedicationSigDispense QuantityRefillsLast FilledStart DateEnd DateStatus albuterol (Ventolin HFA) 90 mcg/actuation inhaler Inhale 2 puffs every 4 hours if needed.08/02/2019Active finasteride (Proscar) 5 mg tablet Take 1 tablet (5 mg) by mouth once daily.02/17/2020Active ipratropium-albuteroL (Duo-Neb) 0.5-2.5 mg/3 mL nebulizer solution Inhale 3 mL every 6 hours if needed.09/09/2019Active multivitamin (Multiple Vitamins) tablet Take 1 tablet by mouth once daily.12/15/2016Active tamsulosin (Flomax) 0.4 mg 24 hr capsule Take 1 capsule (0.4 mg) by mouth 2 times a day.12/16/2019Active rivaroxaban (Xarelto) 20 mg tablet Indications:Atrial fibrillation, unspecified type (Multi)Take 1 tablet (20 mg) by mouth once daily in the evening. Take with meals. 90 tablet 3:06 PM EDT15Active atorvastatin (Lipitor) 40 mg tablet 1 tablet (40 mg) once daily.03/20/2024ctive fluticasone propion-salmeteroL (Advair Diskus) 500-50 mcg/dose diskus inhaler Inhale 1 puff.08/14/2023ctive latanoprost (Xalatan) 0.005 % ophthalmic solution 1 drop once daily at bedtime.10/05/2023ctive pantoprazole (ProtoNix) 40 mg EC tablet 1 tablet (40 mg) early in the morning..02/19/2024ctive magnesium oxide (Mag-Ox) 400 mg (241.3 mg magnesium) tablet Indications:Non-ischemic cardiomyopathy (Multi)Take 1 tablet (400 mg) by mouth once daily. 90 tablet 311//5Active metoprolol succinate XL (Toprol-XL) 25 mg 24 hr tablet Indications:Non-ischemic cardiomyopathy (Multi),Diastolic dysfunction,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 (Multi)Take 1 tablet (25 mg) by mouth once daily at bedtime. Do not crush or chew. 90 tablet 3:39 PM EDTctive dofetilide (Tikosyn) 250 mcg capsule Indications:Atrial fibrillation, unspecified type (Multi)Take 1 capsule (250 mcg) by mouth every 12 hours. 180 capsule 3:35 PM EDT6Active acetaminophen (Tylenol) 500 mg tablet Take 1 tablet (500 mg) by mouth every 4 hours if needed.07/09/2024tive menthol (Biofreeze, menthol,) 4 % gel gel Apply topically.07/12/2024tive magnesium hydroxide (Milk of Magnesia) 400 mg/5 mL suspension Take by mouth once daily as needed.07/09/2024tive aspirin 81 mg tablet Take 81 mg by mouth once daily.Active spironolactone (Aldactone) 25 mg tablet Take 0.5 tablets (12.5 mg) by mouth once daily.Active dapagliflozin propanediol (Farxiga) 10 mg tablet Take 1 tablet (10 mg) by mouth once every 24 hours.Active valACYclovir (Valtrex) 1 gram tablet Take 1 tablet (1,000 mg) by mouth 2 times a day.Active furosemide (Lasix) 40 mg tablet Take 1 tablet (40 mg) by mouth if needed.Active furosemide (Lasix) 20 mg tablet Indications:Non-ischemic cardiomyopathy (Multi)Take 1 tablet (20 mg) by mouth once daily.ctive potassium chloride CR (Klor-Con M20) 20 mEq ER tablet Indications:Non-ischemic cardiomyopathy (Multi)Take 1 tablet (20 mEq) by mouth once daily. Do not crush or chew. 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 Chewing tobacco use01/15/2025 Assessment & Plan (01/16/2025 2:08 PM EDT): Discussed risk of continued usage Non-ST elevation (NSTEMI) myocardial xkjyzjyroz19/29/2025LV dysfunction 01/10/2025 Assessment & Plan (01/16/2025 2:07 [...] dose at recent dischargeand has symptomatic hypotension BMI < 18.506/3056Flmhuql27/10/2025High risk medication use05/24/2024 Assessment & Plan (01/16/2025 2:05 PM EDT): Prior amiodarone failure Dofetilide 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 0.Jun hospitalization reported Qtc prolongation on dofetlide 250 mcg BID. Jan 09, 2025: inpatient ECG Qtc 548 Paroxysmal atrial larhhogtnsbk77/30/2024 Assessment & Plan (01/16/2025 1:59 PM EDT): Maintaining NSR during December 2024 hospitalization Last PAF Mar 2024 (was on amiodarone at the time and changed to dofetilide) BMI 21.0-21.9, adult10/13/2023symmetrical sensorineural hearing loss07/26/2023 Chronic obstructive pulmonary xsdtetl5107/26/2023PA (cerebellopontine angle) tumor07/26/2023iastolic /13/8501Kqahfxaun13/13/2024LV (left ventricular) mural oqjnaavi29/13/2024Non-ischemic zsmoaawahxrdbu76/13/2024 Pulmonary vduqnmimpoq25/13/2024Sensorineural hearing loss (SNHL) of left ear with restricted hearing of right ear07/26/20230628Xnflvoq70/13/2024 Resolved Problems ProblemNoted DateDiagnosed DateResolved DateCurrent zmnahz91409/07/2024 Encounters DateTypeDepartmentCare XgzpCuoqbwddygc00/06/2025Patient Outreach [address] [address] Juliette Perla RN 02/03/2025Results Follow-Up [address] [address] Kassidy Marie RN Holter Or Event Cardiac Olyiaki7101/28/2025 9:30 AM EDT - 01/28/2025 11:59 PM EDT Hospital Encounter [facility] [address] [facility] [address] [place] [address] Cardiac sarcoidosis Discharge Disposition: Home01/28/20252373Cstmep16/11/2025Telephone [address] [place] [address] Beverley Morse LPN Sffturi0201/17/2025 11:00 AM EDTAncillary Procedure [place] [address] [place] [place] [address] Maya Fuentes CMA High risk medication use Discharge Disposition: Home01/17/2025 10:00 AM EDTAncillary Procedure [address] [place] [address] [place] [address] 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 (Multi); Takotsubo syndrome; Cardiac sarcoidosis Discharge Disposition: Home01/17/2025Scanned Document [facility] [address] [place] [phone] Scanning, Generic Provider 01/17/2025[place] [address] [place] [address] Leann Curtis LPN critical lab poxtal1901/17/20251141Qfepdv66/04/2025Patient Outreach [address] [address] Juliette Perla RN 01/15/2025 8:30 AM EDTOffice Visit [address] [facility] [address] [place] [address] Ning Godoy, BALANCE STAFF STAKER-[employer]NA [facility] High risk medication use (Primary Dx); 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 (Multi); senior care (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; Takotsubo syndrome; BMI < 18.5; Cardiac sarcoidosis; Chewing tobacco use; Other cardiomyopathy; LV dysfunction Discharge Disposition: Home01/15/2025Telephone [address] [place] [address] [place] [address] Generic Provider, No Assigned Pcp, 01/15/2025Tephone [address] [place] [address] [place] [address] Deanna Santana MD Error (VOID this visit)01/15/20250673Ualeed10/29/2025Patient Outreach [address] [place] [address] Juliette Perla RN 01/09/2025Scanned Document [facility] [address] [place] [address] Scanning, Generic Provider 01/07/2025Scanned Document [facility] [address] [place] [address] Scanning, Generic Provider 01/06/2025Scanned Document [facility] [address] [place] [address] Scanning, Generic Provider 01/05/2025Scanned Document [facility] [address] [place] [address] Scanning, Generic Provider 01/04/2025Scanned Document [facility] [address] [place] [address] Scanning, Generic Provider from Last 3 Months Immunizations ImmunizationAdministration DatesNext DueFlu vaccine, quadrivalent, high-dose, preservative free, age 65y+ (FLUZONE)02/13/2024Flu vaccine, trivalent, preservative free, HIGH-DOSE, age 65y+ (Fluzone)03/26/2021Influenza, seasonal, fqdgynhuig78/19/2022,04/19/2016Pfizer Purple Cap YLRU-ZzR-280/12/2021 Pneumococcal conjugate vaccine, 13-valent (PREVNAR 13)08/12/2020,06/24/2016 Pneumococcal polysaccharide vaccine, 23-valent, age 2 years and older (PNEUMOVAX 23)06/29/2016RSV, 60 Years And Older (AREXVY)07/16/2024 Family History Medical HistoryRelationNameCommentsValvular heart diseaseBrotherCABGMother DiabetesMotherPTCAMotherRelationNameStatusCommentsBrotherFatherMother Social History Tobacco UseTypesPacks/DayYears UsedDateSmoking Tobacco: NeverSmokeless Tobacco: CurrentChew Tobacco Cessation:Ready to Q uit: Not Asked; Counseling Given: Not Answered Alcohol UseStandard Drinks/WeekCommentsNever0 (1 standard drink = 0.6 oz pure alcohol)Sex and Gender InformationValueDate RecordedSex Assigned at BirthNot on fileLegal LbtYdke95/25/2022 8:50 AM ESTGender IdentityNot on fileSexual OrientationNot on file Last Filed Vital Signs Vital SignReadingTime TakenCommentsBlood Gpecvmlf87/4609 11:12 AM EDT Kdggr3219 11:12 AM EDTTemperature--Respiratory Rate--Oxygen Saturation-- Inhaled Oxygen Concentration--Ylniid01.1 kg (137 lb)01/17/2025 11:12 AM EDT Awkbus535.9 cm (6')01/17/2025 11:12 AM EDTBody Mass Index18.5809 11:12 AM EDT Plan of Treatment DateTypeDepartmentCare Team (Latest Contact Info)Zmudwffthpz36/30/2025 11:30 AM ESTOffice Visit [facility] [address] [facility] [address] [place] [address] Corry Peña MD [address] [facility] Office [facility], [facility] [address] [place] [address] 06/11/2025 11:00 AM ESTOffice Visit [facility] [address] [facility] [address] [place] [address] Deanna Santana MD [address] [facility], [facility] [address] [place] [address] Health MaintenanceDue DateLast DoneCommentsCT Pzdquntujesc85/06/1955Colonoscopy 5Colorectal Cancer Cbjgwqhgr37/06/1955Creatinine Level1954FIT-DNA (Cologuard)1954FIT1954Lipid Panel1954Potassium Level1954 Dramnsmbtvfpy04/06/1955MMR Vaccines (1 of 1 - Standard series)08/19/1955Diabetes Vvvinsikv85/06/1973Hepatitis C Jlmgzrgjb42/06/1973DTaP/Tdap/Td Vaccines (1 - Tdap)1976Zoster Vaccines (1 of 2)2004Medicare Annual Wellness Visit (AWV)504/, 09/01/2022, 08/31/2021, Additional history exists Influenza Vaccine (#1)/05/2023, 03/02/2022, 03/26/2021, Additional history existsCOVID-19 Vaccine (2 - season)/04/2021 Ajhqtwldevshve87/28/064250/, 02/29/2024, 4Pneumococcal Vaccine (3 of 3 - PCV20 or PCV21)603/, 06/29/2016, 06/24/2016Welcome to Medicare JsecnAslvhysrcfal13/29/2024, 09/01/2022, 08/31/2021, Additional history existsRSV High Risk: (Elderly (60+) or Population)Dcfrefzpa17/04/2025 HIB VaccinesAged OutNo longer eligible based on patient's age to complete this topicHPV VaccinesAged OutNo longer eligible based on patient's age to complete this topicHepatitis A VaccinesAged OutNo longer eligible based on patient's age to complete this topicHepatitis B VaccinesAged OutNo longer eligible based on patient's age to complete this topicIPV VaccinesAged OutNo longer eligible based on patient's age to complete this topicMeningococcal VaccineAged OutNo longer eligible based on patient's age to complete this topicRotavirus VaccinesAged Out No longer eligible based on patient's age to complete this topic Procedures Procedure NamePriorityDate/TimeAssociated DiagnosisCommentsMR CARDIAC MORPHOLOGY AND FUNCTION W AND WO IV ZZLYXRWXTltinrk60/16/2025 12:02 PM EDT Cardiac sarcoidosis HOLTER MONITOR 24-48 HOURS - MICA PLATE LAYER HAND, ANALYZED, AND PHYSICIAN READRoutine 01/17/2025 12:05 PM EDT 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 (Multi) Takotsubo syndrome Cardiac sarcoidosis ECG 12-LDCTVefcpmv64/05/2025 11:07 AM EDT High risk medication use OUTSIDE LAB SCAN01/17/2025 ECG 12-VNEHZoosceh77/03/2025 8:35 AM EDT High risk medication use OUTSIDE IMAGING SCAN01/04/2025 TRANSTHORACIC ECHO (TTE) QDQIJNRPMqutimm46/28/2025 1:07 PM EDT Non-ischemic cardiomyopathy (Multi) Cardiomyopathy, unspecified from Last 3 Months or Most Recently Relevant to Health Maintenance Results * MR cardiac morphology and function w and wo IV contrast (01/28/2025 12:02 PM EDT)Anatomical RegionLateralityModalityThoracic, Head neckMagnetic Resonance Specimen (Source)Anatomical Location / LateralityCollection Method / Volume Collection TimeReceived Time01/29/2025 8:49 AM EDT01/29/2025 8:49 AM EDT Impressions 01/29/2025 8:47 AM EDT 1. Normal left ventricular cavity size and myocardial wall thickness with preserved systolic function. Ejection fraction 52%. 2. Delayed enhancement imaging is normal. No evidence of fibrosis, infiltrative disease, previous myocardial infarction, or inflammation of the left ventricular or right ventricular myocardium. 3. Normal right ventricular cavity size with preserved systolic function. RV EF 61%. ? MACRO: None ?? Signed by: Hoang Goff 01/29/2025 8:47 AM Dictation workstation: ?? [id number] [facility] 01/29/2025 8:47 AM EDT Interpreted By: Hoang Goff, STUDY: MR CARDIAC MORPHOLOGY AND FUNCTION W AND WO IV CONTRAST; ??01/28/2025 12:02 pm ?? INDICATION: Signs/Symptoms:cardiac sarcoidosis, increasing arrhythmia. ?? This study is performed to assess myocardial viability and damage, and to quantitate left ventricular and valvular function. ?? 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 COMPARISON: None. ?? ACCESSION NUMBER(S): [id number] ?? ORDERING CLINICIAN: NING GODOY ?? TECHNIQUE: Siemens1.5 ??Reina MRI scanner. Axial HASTE for anatomic localization. Steady state free precession (bSSFP) imaging for anatomic definition. Dynamic cine bSSFP for cardiac chamber and wall-motion analysis, and valvular analysis. Flow quantification sequences for hemodynamics. T1/T2/T2 star parametric mapping if indicated Delayed gadolinium enhancement analysis after injection of gadolinium-chelate 25 mL of Dotarem, 0.2 mmol/kg). HT-183 cm; WT-62 kg; BSA-1.78 m2 ?? FINDINGS: CARDIAC CHAMBERS Normal atrioventricular and ventriculoarterial concordance ?? LEFT ATRIUM Normal size (Area-22.4 cm2) ?? RIGHT ATRIUM Normal size (Area-22.4 cm2) ?? INTERATRIAL SEPTUM Intact. ?? LEFT VENTRICLE The left ventricle is normal [...] = 93 gm; LVMi = 52 gm/m2 ?? *Farzaneh DAWSON et al. Normalized left ventricular systolic and diastolic function by steady state free precession cardiovascular magnetic resonance. J Cardiovasc Magn Reson 2006; 8:417-26. ?? Delayed-enhancement imaging reveals uniformly nulled myocardium, signifying that there has been no prior ischemic myocardial damage. There is also no definite evidence of interstitial fibrosis to suggest an infiltrative process. ?? T1 map: 1073 millisecond. T2 map: 58 millisecond. T2 *: 55 millisecond. Normal. No evidence of myocardial iron overload T2 stir: Normal myocardium. No evidence of inflammation. T2 BB: Normal. No evidence of infiltrative disease. ?? RIGHT VENTRICLE The right ventricle appears normal in size, shape, and has normal qualitative systolic function. No segmental wall motion abnormalities. No abnormal delayed enhancement in the myocardium. RV EF 61%. ?? INTERVENTRICULAR SEPTUM Intact. ?? AORTIC VALVE There is ??trace aortic regurgitation. Flow quantification through the ascending aorta: Forward volume =69 cc/beat Reverse volume = 1 cc/beat Net forward volume = 68 cc/beat Aortic regurgitant fraction = 1 % Aortic valve peak velocity 0.8 m/sec. ?? MITRAL VALVE There is ??trace-mild mitral regurgitation. ? TRICUSPID VALVE There is qualitative trace tricuspid regurgitation. ?? Flow analysis QP 4.8 L/min QS 5.2 L/min QP/QS 0.97 ?? 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 Ascending aorta 4.5 cm. ?? PULMONARY ARTERIES The central pulmonary arteries appear ??normal (MPA-3.8 cm, RPA-2.6 cm, LPA-2.5 cm). ?? SYSTEMIC AND PULMONARY VEINS Normal systemic venous and pulmonary venous return. The SVC and IVC are of normal caliber. Normal pulmonary venous anatomy. ?? CHEST The chest wall is normal. No significant lymphadenopathy or mass is seen in limited images of the mediastinum. Limited imaging through the lungs reveals no gross abnormalities. No pleural effusion. ?? UPPER ABDOMEN Limited imaging through the upper abdomen reveals no abnormalities of the visualized organs. ?? Procedure Note Hoang Goff DO - 01/29/2025 Interpreted By: Hoang Goff, STUDY: MR CARDIAC MORPHOLOGY AND FUNCTION W AND WO IV CONTRAST; 01/28/2025 12:02 pm INDICATION: Signs/Symptoms:cardiac sarcoidosis, increasing arrhythmia. This study is performed to assess myocardial viability and damage, and to quantitate left ventricular and valvular function. 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 ACCESSION NUMBER(S): [id number] ORDERING CLINICIAN: NING GODOY TECHNIQUE: Siemens1.5 Reina [...] Hoang Goff 01/29/2025 8:47 AM Dictation workstation: [id number] Authorizing ProviderResult TypeResult StatusNing Godoy BALANCE STAFF STAKER[facility] MRI PROCEDURESFinal Result * HOLTER MONITOR 24-48 HOURS - MICA PLATE LAYER HAND, ANALYZED, AND PHYSICIAN READ (01/17/2025 12:05 PM EDT)ComponentValueRef RangeTest MethodAnalysis TimePerformed At Pathologist SignatureBSA1.62w4OZLQUMzyrczvl (Source)Anatomical Location / LateralityCollection Method / VolumeCollection TimeReceived Time Narrative [facility] 02/02/2025 1:03 PM EDT 1-the rhythm was sinus for the most part with an average heart rate of 84 bpm, the minimum heart rate was 57 bpm sinus bradycardia at 8:38 AM and the maximal heart rate was 122 bpm sinus tachycardia at 8:14 PM 2-large volume of premature ventricular complexes. ??There was 18,666 beats in 24 hours representing 15.9% of total QRS complexes. ??Multiple runs of ventricular bigeminy were noted along with a 12 beat run of ventricular tachycardia at rate 160 bpm, 13 events of ventricular couplets were noted. 3-moderate volume of premature atrial complexes representing 1.1% of total QRS complexes, there were frequent runs of atrial fibrillation with RVR not exceeding 10 beats in a row. ??Total number was 16 runs. 4-no pauses exceeding 2 seconds were noted 5-multiple entries on the patient's diary for shortness of breath which correlated with normal sinus rhythm and PACs or PVCs Conclusion: Abnormal 24-hour Holter monitor, the rhythm was sinus with an average heart rate of 84 bpm. ??High volume of PVCs representing 15.9% was noted with a single run of ventricular tachycardia for 12 beats at a rate of 160 bpm which was not symptomatic. ??Multiple runs of ventricular bigeminy were noted. ??Moderate volume of mostly isolated PACs with 16 short runs of atrial fibrillation ??with RVR and a maximal heart rate of 185 bpm. ??No pauses exceeding 2 seconds were noted. ??Patient's symptoms of shortness of breath did not correlate with significant arrhythmias Authorizing ProviderResult TypeResult StatusNing Godoy APRN-CNPCV CARDIAC SERVICES PROCEDURESFinal ResultPerforming OrganizationAddressCity/State/ZIP Code Phone Number [facility] * ECG 12 Lead (01/17/2025 11:07 AM EDT) Only the most recent of2 resultswithin the time period is included. Specimen (Source)Anatomical Location / LateralityCollection Method / Volume Collection TimeReceived Time Narrative [facility] - 01/17/2025 12:41 PM EDT Normal sinus rhythm with ventricular bigeminy, IVCD, abnormal ECG Authorizing ProviderResult TypeResult Ila Godoy APRN-CNPECG ORDERABLES Final ResultPerforming OrganizationAddressCity/State/ZIP CodePhone Number [facility] * OUTSIDE LAB SCAN (01/17/2025) Narrative 01/17/2025 Ordered by an unspecified provider. Authorizing ProviderResult TypeResult StatusGeneric Provider ScanningOUTSIDE SCANFinal Result * OUTSIDE IMAGING SCAN (01/04/2025)Anatomical RegionLateralityModalityOther Narrative 01/04/2025 Ordered by an unspecified provider. Authorizing ProviderResult TypeResult StatusGeneric Provider ScanningOUTSIDE SCANFinal Result * TRANSTHORACIC ECHO (TTE) COMPLETE (08/09/2024 1:07 PM EDT)ComponentValueRef RangeTest MethodAnalysis TimePerformed AtPathologist SignatureAV mn ujwk2phOo SYNGOAV pk vel1.17m/sSYNGOLV Biplane EF41%SYNGOLVOT diam2.49cmSYNGOMV E/A ratio1.18SYNGOTricuspid annular plane systolic excursion2.3cmSYNGOMV avg E/e' ratio6.26SYNGOLA vol index A/L35.2ml/e0XASXBBB EF50%SYNGORV free wall pk S' 13.32cm/uTXRQUKHDE54.1veZgFPNZSDEWAo1.75cmSYNGOAortic Valve Area by Continuity of Peak Velocity2.76lt6VHJBDGA pk gzmt2kgVrYOXCPLturjn Valve Area by Continuity of VTI3.31lk2PCXEQHV A4C EF49.3SYNGOSpecimen (Source)Anatomical Location / LateralityCollection Method / VolumeCollection TimeReceived Time 08/09/2024 12:22 PM EDT Narrative SYNGO - 08/09/2024 5:39 PM EDT ?[address], [place] [address] ? TRANSTHORACIC ECHOCARDIOGRAM REPORT Patient Name: ? MARYJORDEN JAVEDON ?Reading Physician: ?[id number] Deanna ?IbrahimMD, FACC Study Date: ? 08/09/2024 ? Ordering Provider: ?[id number] DEANNA M ?SANTANA MRN/PID: ?[id number] ?Fellow: Accession#: ? [id number] ?Nurse: Date of /Age: ??1955 / 68 years Encapsulator: ?Adamaris Yoder ?RDCS, RT(R), ?RDMS, RVT Gender Assigned at ??M ? Additional Staff: : Height: ? 182.88 cm ? Admit Date: Weight: ? 70.76 kg ?Admission Status: ? Outpatient BSA / BMI: ?1.92 m2 / 21.16 ? Department Location: ??[facility] ?kg/m2 ? [place] Blood Pressure: 98 /60 mmHg Study Type: ?TRANSTHORACIC ECHO (TTE) COMPLETE Diagnosis/ICD: Cardiomyopathy, unspecified-I42.9 Indication: ?NICM CPT Codes: ? Echo Complete w Full Doppler-[id number] Patient History: Pertinent History: A-Fib, COPD and Pulmonary Sarcoudosis HX of LV thrombus. Study Detail: The following Echo studies were performed: 2D, M-Mode, Doppler and ?color flow. PHYSICIAN INTERPRETATION: Left Ventricle: Left ventricular [...] normal. There is no indication of pulmonic valveregurgitation. Pericardium: No pericardial effusion noted. Aorta: The aortic root is abnormal. There is mild dilatation of the aortic root. Systemic Veins: The inferior vena cava appears normal in size. CONCLUSIONS: 1. Left ventricular ejection fraction is mildly decreased, by visual estimate at 50%. 2. There is normal right ventricular global systolic function. QUANTITATIVE DATA SUMMARY: 2D MEASUREMENTS: ? Normal Ranges: Ao Root d: ? 3.90 cm ? (2.0-3.7cm) LAs: ? 3.01 cm ? (2.7-4.0cm) RVIDd: ? 2.17 cm ? (0.9-3.6cm) IVSd: ?1.35 cm ? (0.6-1.1cm) LVPWd: ? 1.19 cm ? (0.6-1.1cm) LVIDd: ? 4.75 cm ? (3.9-5.9cm) LVIDs: ? 2.81 cm LV Mass Index: ?? 121.5 g/m2 LVEDV Index: ? 24.96 ml/m2 LV % FS ?40.8 % LEFT ATRIUM: ? Normal Ranges: LA Vol A4C: ? 66.5 ml ?(22+/-6mL/m2) LA Vol A2C: ? 64.2 ml LA Vol BP: ?67.6 ml LA Vol Index A4C: 34.7ml/m2 LA Vol Index A2C: 33.5 ml/m2 LA Vol Index BP: ??35.2 ml/m2 LA Vol A4C: ? 65.7 ml LA Vol A2C: ? 60.3 ml LA Vol Index BSA: 32.8 ml/m2 LV SYSTOLIC FUNCTION: ? Normal Ranges: EF-A4C View: 49 % (>=55%) EF-A2C View: ?31 % EF-Biplane: ? 41 % EF-Visual: ?50 % LV EF Reported: 50 % LV DIASTOLIC FUNCTION: ? Normal Ranges: MV Peak E: ? 0.48 m/s ??(0.7-1.2 m/s) MV Peak A: ? 0.41 m/s ??(0.42-0.7 m/s) E/A Ratio: ? 1.18 ?(1.0-2.2) MV e' 0.077 m/s (>8.0) MV lateral e' ?0.10 m/s MV medial e' ? 0.05 m/s E/e' Ratio: 6.26 (<8.0) MITRAL VALVE: ?Normal Ranges: MV Vmax: 0.62 m/s (<=1.3m/s) MV peak P.5 mmHg (<5mmHg) MV mean P.8 mmHg (<48mmHg) MV VTI: ? 17.26 cm (10-13cm) MV DT: ?134 msec (150-240msec) MV PHT: ? 43 msec ??(30-60msec) MVA by PHT: ?? 5.12 cm2 (4-6cm2) MITRAL INSUFFICIENCY: ? Normal Ranges: MR Vmax: ?246.56 cm/s AORTIC VALVE: ? Normal Ranges: AoV Vmax: 1.17 m/s (<=1.7m/s) AoV Peak P.5 mmHg (<20mmHg) AoV Mean PG: ? 3.1 mmHg (1.7-11.5mmHg) LVOT Max Fadi: 0.72 m/s (<=1.1m/s) AoV VTI: ? 22.13 cm (18-25cm) LVOT VTI: ?15.10 cm LVOT Diameter: ? 2.49 cm ??(1.8-2.4cm) AoV Area, VTI: ? 3.33 cm2 (2.5-5.5cm2) AoV Area,Vmax: ? 2.98 cm2 (2.5-4.5cm2) AoV Dimensionless Index: 0.68 AORTIC INSUFFICIENCY: AI Vmax: ? 3.62 m/s AI Half-time: ??408 msec AI Decel Time: 1407 msec AI Decel Rate: 253.24 cm/s2 RIGHT VENTRICLE: RV Basal 3.23 cm RV Major 6.3 cm TAPSE: ?? 23.1 mm RV s' ?0.13 m/s TRICUSPID VALVE/RVSP: ?Normal Ranges: Peak TR Velocity: ? 2.70 m/s Est. RA Pressure: ? 5 mmHg RV Syst Pressure: 34 mmHg (< 30mmHg) IVC Diam: ? 1.49 cm PULMONIC VALVE: ?Normal Ranges: RVOT Vmax: ?0.57 m/s (0.6-0.9m/s) PV Max Fadi: ? 0.8 m/s ??(0.6-0.9m/s) PV Max PG: ?2.3 mmHg PV Mean PG: ? 1.3 mmHg AORTA: Asc Ao Diam 4.09 cm [id number] Deanna Santana MD, [facility] Electronically signed on 08/09/2024 at 5:39:23 PM Final Procedure Note Deanna Santana MD - 08/09/[address], Suite [facility], [place] [address] TRANSTHORACIC ECHOCARDIOGRAM REPORT Patient Name: MARY SMALL Shannan Physician: [id number] Santana MD,FAC Study Date: 08/09/2024 Ordering Provider: [id number] JULIANNE SANTANA MRN/PID: [id number] Fellow: Nurse: Date of /Age: 408/18/1955 / 68 years Encapsulator: Tory URBINA,RT(R), RDMS, RVT Gender Assigned at Additional Staff: : Height: 182.88 cm Admit Date: Weight: 70.76 kg Admission Status: Outpatient BSA / BMI: 1.92 m2 / 21.16 [facility] [place] Blood Pressure: 98 /60 mmHg Study Type: TRANSTHORACIC ECHO (TTE) COMPLETE Diagnosis/ICD: Cardiomyopathy, unspecified-I42.9 Indication: NICM CPT Codes: Echo Complete w Full Doppler-[id number] Patient History: Pertinent History: A-Fib, COPD and [...] mmHg AORTA: Asc Ao Diam 4.09 cm [id number] Deanna Santana MD, [facility] Electronically signed on 08/09/2024 at 5:39:23 PM Final Authorizing ProviderResult TypeResult StatusDeanna Santana [facility] [place] ECHO PROCEDURESFinal ResultPerforming OrganizationAddressCity/State/ZIP CodePhone Number SYNGO from Last 3 Months or Most Recently Relevant to Health Maintenance Insurance Care Teams Team MemberRelationshipSpecialtyStart DateEnd Date Adam Wylie DO [address] [place] [address] PCP - GeneralInternal Medicine10/13/23
--- OUTSIDE RECORDS SUMMARY | 2025-03-16 14:10 | XMS_ITS | Clinical Summary ---
Author Organization [employer] [facility] Address [id number] [place] [address] Care Team Providers Care Applied Statistician Name Role Phone Unavailable Primary Care Provider Unavailabl e Active Problems ProblemNoted DateDiagnosed DateChronic respiratory failure with hypoxia 07/21/2024Wedge compression fracture of T7 vertebra with routine healing 07/21/2024losed wedge compression fracture of T8 ftgaqasf85/09/2025Sarcoid krkremzpbbi22/09/4819Wugesbhbgyw36/09/2025enign prostatic hyperplasia with lower urinary tract izpzazsq94/09/7159Wdycgeuuvbu57/09/2025Encephalopathy, myxntsjkiqy77/09/2025lcohol dependence, in qzgieaegi98/09/2025Occlusion and stenosis of right carotid keywpr7207/21/2024Esophageal clbspx7107/21/2024Hypo- osmolality and aphqejtowrmr46/09/2025Sarcoidosis of lung07/21/2024hronic systolic congestive heart ihsaars6107/21/2024Muscle weakness (generalized) 07/21/2024Other spondylosis, lumbar ushtym5007/21/2024Gross unsmijghv80/09/2025 Chronic atrial ubnvigzgebqc28/09/2025 Social History Tobacco UseTypesPacks/DayYears UsedDateSmoking Tobacco: Never AssessedChildcare AnswerDate AilgiezvXcxpbjfveNzgxmid31/12/2019EmploymentAnswerDate Recorded MyslqezysrVsfntue56/12/2019Sex and Gender InformationValueDate RecordedSex Assigned at BirthNot on fileLegal YjxNbie3612/18/2014 11:25 AM EDTGender Identity Not on fileSexual OrientationNot on file Last Filed Vital Signs Vital SignReadingTime TakenCommentsBlood Ihmjdcna148/6603 4:49 PM EDT Mrvxy6083 4:49 PM HVJLtwmvyvyigu52.5 ??C (97.7 ??F)07/23/2024 4:49 PM EDTRespiratory Sxkb710507/23/2024 4:49 PM EDTOxygen Ehrbnagclw70%07/23/2024 4:49 PM EDTInhaled Oxygen Concentration--Cdxyeu51.1 kg (139 lb 3.2 oz)07/23/2024 4:49 PM YLXRkmvpk187.9 cm (6')07/23/2024 4:49 PM EDTBody Mass Index18.8807/23/2024 4:49 PM EDT Plan of Treatment Health MaintenanceDue DateLast DoneCommentsDepression Zffkrbdow96/06/1967Tobacco Rdybeqbue86/06/1967DTaP,Tdap and Td Vaccines (1 - Tdap)1973Zoster (Shingles) Vaccine (1 of 2)2004RSV ( or age 60+ yrs) (1 - Risk 60- 74 years 1-dose series)2014Fall Risk Lgrgyacpn83/06/2020Influenza Vaccine 01/13/2025dult BMI Tgqbirxhk99/11/95724507/23/2024 Medical Devices Not on file
--- OUTSIDE RECORDS SUMMARY | 2025-03-16 14:10 | XMS_ITS | Clinical Summary ---
Author Organization [facility] Address [address] [place] [address] Care Team Providers Care Sewer And Inspector Name Role Phone Adam Wylie DO Primary Care Provider [phone] Social History Tobacco UseTypesPacks/DayYears UsedDateSmoking Tobacco: Never AssessedSex and Gender InformationValueDate RecordedSex Assigned at BirthNot on fileLegal Sex Male07/27/2022 6:50 PM EDTGender IdentityNot on fileSexual OrientationNot on file Plan of Treatment Not on file Insurance Care Teams Team MemberRelationshipSpecialtyStart DateEnd Date Adam Wylie DO PCP - GeneralInternal Dhxfmllk11/6/24
--- OUTSIDE RECORDS SUMMARY | 2025-03-16 14:11 | XMS_ITS | CCD ---
Author Organization [facility] CliniSyut Care Team Providers [place] Department Manager Name Role Phone Adam Del Valle Unavailable Unavailable Unavailable ADAM DEL VALLE Primary Care Physician [phone] DO Adam Del Valle Primary Care Provider DO Gregg Hilliard Attending Provider Nick Muniz Unavailable [phone] Gregg Hilliard Unavailable Adam Del Valle Unavailable [...] Care Unavailable BALL, DR REICH Consulting Unavailable ANDREA, MATTHEW Consulting [...] DO Adam Del Valle Primary Care Provider Lindbloom, DO Silvano Admit Provider DO Derek Silvano Attending Provider JOANNE Tang Other Provider Unavailable DO Judith Rodriguez Other Provider MD Shannon Gonzalez Other Provider MD Steven Alvares Other Provider MD Chacho Burroughs Other Provider MD Casey Harper Other Provider CHARLEY Godoy Other Provider MD Cheli Wood Other Provider MD Damien Gonzalez Other Provider MD Kimani Wolfe Other Provider Bailee [facility] Karina Galvan Other Provider DO Sin Mabry [...] Other Provider MD Kimani Wolfe [facility] Kar[facility] Galvan Other Provider DO Sin Mabry Emergency Provider MD Altaf Jones Attending Provider [phone] MD Gabriela Nobles Admit Provider DO Eriberto [...] Provider Unavailable Judith Rodriguez DO Other Provider Shannon Gonzalez MD Other Provider Dia SALMON, Steven Tinoco Other Provider Chacho Burroughs MD Other Provider Casey Harper MD Other Provider Ning Godoy APRN Other Provider Cheli Wood MD Other Provider Carlos SALMON, Damien Moreno Other Provider Kimani Wolfe MD Other Provider Bailee [facility], Karina Galvan Other Provider Sin Mabry DO Emergency Provider [phone] Altaf Jones MD Attending Provider [phone] Giuliano SALMON, Gabriela Admit Provider Ck KING, Eriberto Robertson Other Provider Dia SALMON, Ijeoma Other Provider Hasmukh Mace MD Other Provider Nuvia Keita APRN Other Provider Franklin DO, Freddie Galvan Other Provider Deysi SALMON, Gutierrez Rodriguez Other Provider Martell SALMON, Baudilio Francisco Other Provider [phone] Adam Del Valle DO Attending Provider Adam Del Valle DO Primary Care Provider Robert SALMON, Altaf Attending Provider Shannon Gonzalez MD Referring Provider [phone] Adam Del Valle DO Primary Care Provider Susanne Motley MD Emergency Provider Altaf Jones MD Admit Provider Altaf Jones MD Attending Provider Shannon Gonzalez MD Other Provider Unavailable Primary Care Provider Unavailabl e Adam Del Valle DO Primary Care Provider Susanne Motley MD Emergency Provider Altaf Jones MD Admit Provider Altaf Jones MD Attending Provider Shannon Gonzalez MD Other Provider Adam Del Valle DO Primary Care Provider Adam Del Valle DO Attending Provider Hasmukh Vides DO Emergency Provider Silvano Reed DO Admit Provider Silvano Reed DO Attending Provider Hoang Conner DO Attending Provider [phone] Juliette Davis CMA Attending Provider Unavaila Adam Lainez DO Primary Care Provider Adam Del Valle DO Attending Provider Josue Beavers MD Attending Provider Chouavtar KING, Nidal N Emergency Provider Horacio SALMON, Elsie Admit Provider [phone] Elsie Leonard MD Attending Provider Jostin Larose DO Attending Provider Pan RUBIO, Juilette Unavailable Unavailable Ning Godoy APRN Attending Provider Nick Muniz MD Attending Provider NING GODOY Attending Unavailable BALL, ADAM E Primary Care Unavailable NING GODOY Referring Unavailable BALL, ADAM E Primary Care Unavailable GONZALEZ, ORTEGA M Referring Unavailable BALL, ADAM E Primary Care Unavailable GONZALEZ, ORTEGA M Attending Unavailable BALL, ADAM E Primary Care Unavailable GONZALEZ, ORTEGA M Referring Unavailable GONZALEZ, ORTEGA M Attending Unavailable GONZALEZ, ORTEGA M Referring Unavailable BALL, ADAM E Primary Care Unavailable NING GODOY K Referring Unavailable BALL, ADAM E Primary Care Unavailable GONZALEZ, ORTEGA M Referring Unavailable BALL, ADAM E Primary Care Unavailable GONZALEZ, ORTEGA M Attending Unavailable GONZALEZ, ORTEGA M Referring Unavailable BALL, ADAM E Primary Care Unavailable NING GODOY Referring Unavailable BALL, ADAM E Primary Care Unavailable GONZALEZ, ORTEGA M Referring Unavailable BALL, ADAM E Primary Care Unavailable GONZALEZ, ORTEGA M Referring Unavailable BALL, ADAM E Primary Care Unavailable Ball DOAdam Primary Care Provider Juliette Davis CMA Attending Provider Unavaila Gabriela Rodriguez MD Admit Provider Gabriela Nobles MD Attending Provider Adam Del Valle DO Primary Care Provider Randy SALMON, Jose Other Provider Joanie Akbar MD Attending Provider Joanie Akbar MD Other Provider Clinton NORMAN Attending Unavailable EMERSON, Clinton Hernandez Attending Unavailable NORMAN, Clinton Hernandez Attending Unavailable EMERSON, Clinton Hernandez Attending Unavailable NORMAN, Clinton Hernandez Admitting Unavailable EMERSON, Clinton Hernandez Attending Unavailable Hoang Conner Attending Unavailable Silvano Reed Admitting Unavailabl e Ball, Adam Primary Care Unavailable Ball, Adam Primary Care Unavailable Ball, Adam Attending Unavailable Ball, Adam Admitting Unavailable Dudenhoefer, Josue Diaz Admitting Unavailable Dudenhoefer, Josue Diaz Attending Unavailable Ball, Adam Primary Care Unavailable Ball, Adam Primary Care Unavailable Dudenhoefer, Josue Diaz Admitting Unavailable Dudenhoefer, Josue Diaz Attending Unavailable Ball, Adam Primary Care Unavailable Robert, Altaf Admitting Unavailable Robert, Altaf Attending Unavailable Lisa, Shannon Consulting Unavailable Jostin Larose Attending Unavailable Joanie Akbar Consulting Unavailable GiulianoGabriela galvan Admitting Unavailable Ball, Adam Primary Care Unavailable Jostin Larose Attending Unavailable Irvinskdavina, Elsie Admitting Unavailable Mischler, Ramonita Consulting Unavailable Ivon, Adam Primary Care Unavailable Pattier, Ramonita Consulting Unavailable Judith Rodriguez Consulting Unavailable Gonzalez, Ortega Consulting Unavailable TraboulChacho smith Consulting Unavailable Ning Godoy Consulting Unavailable Cheli Wood Consulting Unavailable Aiden, Kimani Consulting Unavailable Karina Morocho Consulting Unavailable Allergies Allergy ClassificationReported Allergen(s)Allergy TypeDate of OnsetReaction(s) Facility (1 source)patient allergy list reviewed by nurse or physiciaPropensity to adverse [id number]:To8to Other (1 source)ALLERGIES NOT ON FILE; Translations: [ALLERGIES NOT ON FILE]Propensity to adverse reactions (disorder)[facility] Repository Medications Current Medications MedicationDrug Class(es)DatesSig (Normalized)Sig (Original)Advair Diskus 500-50 MCG/DOSE (5 sources)Start: 61-73-6455rsak 1 puff(s) by inhalation twice dailyAdvair Diskus 500-50 MCG/DOSE 1 puff Inhalation Twice a day for 90 days Jun, [id number] 200 actuat albuterol 0.09 mg/actuat metered dose inhaler (20 sources)beta2-Adrenergic AgonistStart: 17-27-8490aybi 1 puff(s) by inhalation every six hours as needed for wheezingStart: 10-23-2023 End: 09-22-8249umuf 2 puff(s) by mouth every six hours as neededAlbuterol Sulfate 90 mcg/actuation HFA aerosol inhaler Discontinued 0 .ROUTE .COMPLEX 18 11 October 23, 2023 5:53pm July 09, 2024 11:25am Bullous emphysema Emphysema, unspecified INHALE 2 PUFFS BY MOUTH EVERY 6 HOURS NEEDEDStart: 10-23-2023 End: 99-89-8620Ssmthgilq Sulfate (Ventolin Hfa) 90 mcg/actuation HFA aerosol inhaler Discontinued 2 PUFF INHALATION Q4H as needed for Shortness Of Breath Or Wheezing 6 90 October 23, 2023 3:23pm October 23, 2023 5:53pm Bullous emphysema Emphysema, unspecified Dispense 6 inhalers (2 per month)Start: 10-23-2023 End: 11-19-6035Bcgjpjoxz Sulfate (Ventolin Hfa) 90 mcg/actuation HFA aerosol inhaler Discontinued 2 PUFF INHALATION Q4H 6 90 October 23, 2023 2:23pm October 23, 2023 4:53pm Dispense 6 inhalers (2 per month)Start: 09-08-2023 End: 52-23-4056sbgz 2.5 mg by inhalation four times dailyAlbuterol Sulfate 2.5 mg /3 mL (0.083 %) solution for nebulization Discontinued 2.5 MG INHALATION Four times daily September 08, 2023 12:00am July 09, 2024 11:25amStart: 64-71-9265fmui 2 puff(s) by inhalation every six hours as neededAlbuterol Sulfate HFA 108 (90 Base) MCG/ACT 2 puffs Inhalation every 6 hrs, as needed for 30 days September, ActiveStart: 72-59-7570qjjs 2 puff(s) by inhalation every six hours as neededAlbuterol Sulfate HFA 108 (90 Base) MCG/ACT 2 puffs Inhalation every 6 hrs, as needed for 30 days September, ActiveStart: 67-17-4921ibeu 2 puff(s) by inhalation every six hours as neededAlbuterol Sulfate HFA 108 (90 Base) MCG/ACT 2 puffs Inhalation every 6 hrs, as needed for 30 days September, ActiveStart: 82-57-6646Pswnguvni Sulfate (2.5 MG/3ML) 0.083% 1 unit dose Inhalation four times a day DX J44.9 COPD for 30 days Aug, ActiveStart: 22-84-8974Uiasprpxy Sulfate (2.5 MG/3ML) 0.083% 1 unit dose Inhalation four times a day DX J44.9 COPD for 30 days Aug, ActiveStart: 80-54-9571iise 2 puff(s) by inhalation every four hoursalbuterol (Ventolin HFA) 90 mcg/actuation inhaler Inhale 2 puffs every 4 hours if needed. 08/02/2019 ActiveStart: 99-31-2581guui 2 puff(s) by mouth every four hours as needed for coughVentolin HFA 108 (90 Base) MCG/ACT Inhalation Aerosol Solution INHALE 2 PUFFS BY MOUTH EVERY 4 HOURS NEEDED FOR COUGH / DYSPNEA Quantity: 36 Refills: 0 Ordered: 18-Jul-2020 DO Start : 02-Aug-2019 ActiveStart: 93-80-9954vnvt 1 puff(s) by inhalation every six hoursAlbuterol Sulfate (Ventolin Hfa) 90 mcg/actuation Hfa Aerosol Inhaler Active 2 PUFF INHALATION Q6H May 11, 2018 9:16pmStart: 05-11-2018 End: 36-27-0503qleq 1 puff(s) by inhalation every six hours as needed for wheezingAlbuterol Sulfate (Ventolin Hfa) 90 mcg/actuation Hfa Aerosol Inhaler Discontinued 2 PUFF INHALATION Q6H as needed for Shortness Of Breath Or Wheezing May 11, 2018 1:00am October 23, 2023 3:25pmalbuterol 0.833 mg/ml / ipratropium bromide 0.167 mg/ml inhalation solution (20 sources)Anticholinergic, beta2-Adrenergic AgonistStart: 01-30-2024 End: 97-49-8494afdk 1 mL by inhalation four times daily as neededStart: 01-29-2024 End: 79-62-0545qhsd 2.5 mL by inhalation four times dailyIpratropium-Albuterol 0.5 mg-3 mg(2.5 mg base)/3 mL solution for nebulization Discontinued 0 .ROUTE .COMPLEX 360 5 January 29, 2024 12:51pm January 30, 2024 11:36am INHALE 2.5ML VIA NEBULIZERFOUR TIMES DAILY FOR 30 DAYSStart: 18-44-8903szvf 3 mL by inhalation every six hours as neededipratropium-albuteroL (Duo-Neb) 0.5-2.5 mg/3 mL nebulizer solution Inhale 3 mL every 6 hours if needed. 09/09/2019 Active Start: 96-08-2833Jndexasvxts-Albuterol 0.5-2.5 (3) MG/3ML Inhalation Solution INHALE 1 (ONE) vial via NEBULIZER TWICE DAILY - FOUR TIMES DAILY Quantity: 360 Refills: 0 Ordered: 21-May-2020 DO Start : 09-Sep-2019 ActiveStart: 05-11-2018 End: 52-24-5188Kypngvttjmj-Albuterol 0.5 mg-3 mg(2.5 mg base)/3 mL Solution For Nebulization Discontinued 3 ML INHALATION every 6 to 8 hours as needed for Wheezing May 11, 2018 1:00am October 12, 2023 2:02pmStart: 67-69-1300cfch 3 mL by inhalation four times dailyIpratropium-Albuterol 0.5-2.5 (3) MG/3ML 3 ml Inhalation Four times a day DX COPD j44.9 for 30 daysApr, ActiveStart: 63-34-3155mqtc 3 mL by inhalation every six hoursIpratropium-Albuterol 0.5-2.5 (3) MG/3ML 3 ml Inhalation every 6 hrs Apr, ActiveAlbuterol Sulfate (Ventolin Hfa) 90 mcg/actuation Hfa Aerosol Inhaler (14 sources)Start: 34-41-1376aydx 1 puff(s) by inhalation every six hours Albuterol Sulfate (Ventolin Hfa) 90 mcg/actuation Hfa Aerosol Inhaler Active 2 PUFF INHALATION Q6H May 11, 2018 9:16pmStart: 05-11-2018 End: 05-70-9398dhpd 1 puff(s) by inhalation every six hours as needed for wheezingAlbuterol Sulfate (Ventolin Hfa) 90 mcg/actuation Hfa Aerosol Inhaler Discontinued 2 PUFF INHALATION Q6H as needed for Shortness Of Breath Or Wheezing May 11, 2018 1:00am October 23, 2023 3:25pmStart: 05-11-2018 End: 93-02-6665rcuj 1 puff(s) by inhalation every six hours as needed for wheezingAlbuterol Sulfate (Ventolin Hfa) 90 mcg/actuation Hfa Aerosol Inhaler Discontinued 2 PUFF INHALATION Q6H as needed for Shortness Of Breath Or Wheezing May 11, 2018 12:00am October 23, 2023 2:25pmStart: 05-11-2018 End: 13-17-6795zivm 1 puff(s) by inhalation every six hoursAlbuterol Sulfate (Ventolin Hfa) 90 mcg/actuation Hfa Aerosol Inhaler Discontinued 2 PUFF INHALATION Q6H May 11, 2018 12:00am October 23, 2023 2:25pmStart: 05-11-2018 End: 94-63-8897olwg 1 puff(s) by inhalation every six hoursAlbuterol Sulfate (Ventolin Hfa) 90 mcg/actuation Hfa Aerosol Inhaler Discontinued 2 PUFF INHALATION Q6H May 11, 2018 1:00am October 23, 2023 3:25pmaspirin 81 mg delayed release oral tablet (20 sources)Platelet Aggregation Inhibitor, Nonsteroidal Anti-inflammatory Drug Start: 49-52-6471pbdp 1 tablet by mouth once dailyStart: 03-20-2024 End: 17-81-0447rdaw 1 tablet by mouth once dailyAspirin 81 mg Tablet,Delayed Release (Dr/Ec) Discontinued 81 MG PO Daily March 20, 2024 1:00am May 01, 2024 12:36pmtake 1 tablet by mouth once dailyaspirin 81 mg tablet Take 81 mg by mouth once daily. Activeatorvastatin 40 mg oral tablet (20 sources)HMG-CoA Reductase InhibitorStart: 03-20-2024 End: 50-87-1734fbgj 1 tablet by mouth once daily in the morningdapagliflozin 10 mg oral tablet (9 sources)Sodium-Glucose Cotransporter 2 InhibitorStart: 01-09-2025 End: 19-67-6927eeev 1 tablet by mouth once daily in the morningtake 1 tablet by mouth every twenty-four hoursdapagliflozin propanediol (Farxiga) 10 mg tablet Take 1 tablet (10 mg) by mouth once every 24 hours. Activedigoxin 0.125 mg oral tablet (8 sources)Cardiac GlycosideStart: 06-06-2024 End: 37-39-4672vqet 1 tablet by mouth once dailydigoxin (Lanoxin) 125 MCG tablet Indications: 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 (Multi) Take 1 tablet (125 mcg) by mouth once daily. 90 tablet 3 06/06/2024 10/31/2024 Discontinued (Discontinued by another clinician)dofetilide 0.25 mg oral capsule (20 sources)AntiarrhythmicStart: 08-12-2024 End: 15-48-3834rygl 1 capsule by mouth every twelve hoursStart: 08-05-2024 dofetilide 250 mcg oral capsule 250 mcg = 1 cap(s), Refills(s) 0 Start Date: 08/05/24 Status: Ordered Repeat number: 1Start: 07-09-2024 End: 96-78-0304hdww 1 capsule by mouth twice dailyDofetilide 125 mcg Capsule Discontinued 125 MCG PO Twice daily 0 0 July 09, 2024 1:00am November 11, 2024 3:11amStart: 03-20-2024 End: 64-11-8309tqfb 1 capsule by mouth every twelve hoursdofetilide (Tikosyn) 250 mcg capsule 1 capsule (250 mcg) every 12 hours. 03/20/2024 07/25/2024 Disco ntinued (Dose adjustment)Start: 03-20-2024 End: 68-96-1121njvv 1 capsule by mouth twice dailyDofetilide 250 mcg Capsule Discontinued 250 MCG PO Twice daily 60 30 12 March 20, 2024 1:00am July 09, 2024 11:25am End: 22-27-3895htpv 1 capsule by mouth every twelve hoursdofetilide (Tikosyn) 125 mcg capsule Take 1 capsule (125 mcg) by mouth every 12 hours. 10/31/2024 Di scontinued (Therapy completed)fluticasone 0.05 mg/inh Nasal Davin (2 sources)Start: 11-48-1207lmrardeinfn 0.05 mg/inh Nasal Davin Nasal, Daily, Refill(s) 0 Start Date: 09/11/19 Status: Orderedipratropium bromide 0.2 mg/ml inhalation solution (20 sources)AnticholinergicStart: 01-30-2024 End: 45-54-5485xrzl 2.5 mL by inhalation four times dailyipratropium (Atrovent) 0.02 % nebulizer solution INHALE 2.5ml via NEBULIZER FOUR TIMES DAILY 01/30/2024 10/31/2024 Discontinued (Therapy completed)Start: 10-12-2023 End: 24-31-0566ahgp 0.5 mg by inhalation four times dailyIpratropium [place] 0.02 % solution Discontinued 0.5 MG INHALATION Four times daily 300 30 5 Sept2023 8:52am January 29, 2024 12:51pmStart: 10-12-2023 End: 75-98-1563fapo 0.5 mg by inhalation four times dailyIpratropium [place] Discontinued 0.5 MG INHALATION Four times daily 300 30 January 29, 2024 7:52 am January 29, 2024 11:51amStart: 76-30-1174ygmw 1 [IU] by inhalation four times dailyIpratropium [place] 0.02 % 1 unit dose Inhalation four times a day DX J44.9 COPD for 30 days Aug, ActiveStart: 36-00-7439kann 1 [IU] by inhalation four times dailyIpratropium [place] 0.02 % 1 unit dose Inhalation four times a day DX J44.9 COPD for 30 days Aug, ActiveStart: 09-11-2019 ipratropium microgram, QID, Refills(s) 0 Start Date: 09/11/19 Status: Ordered Repeat number: 1Start: 52-33-1624zixiiwqprvi microgram, QID, Refills(s) 0 Start Date: 09/11/19 Status: Orderedlatanoprost 0.05 mg/ml ophthalmic solution (20 sources)Prostaglandin AnalogStart: 40-77-1223oter 1 drop(s) into the eye(s) at bedtimeStart: 85-41-3827ybwq 1 drop(s) into the eye(s) once dailyLatanoprost 0.005 % drops Active 1 DROPS OPHTHALMIC Daily October 12, 2023 12:00am Complies with drugtherapyStart: 89-59-3086lnki 1 drop(s) into the eye(s) once daily Latanoprost Active 1 DROPS OPHTHALMIC Daily October 11, 2023 11:00pmStart: 24-29-4090firw 1 drop(s) into the eye(s) once daily at bedtimelatanoprost (Xalatan) 0.005 % ophthalmic solution 1 drop once daily at bedtime. 10/05/2023 Gzmdmn18 hr metoprolol succinate 25 mg extended release oral tablet (20 sources)beta-Adrenergic BlockerStart: 20-88-4168vixq 1 tablet by mouth every twenty-four hoursMetoprolol Succinate 25 mg tablet extended release 24 hr Active 25 MG PO Once June 03, 2024 12:00amStart: 05-24-2024 End: 12-19-0459jbmu 1 tablet by mouth once daily in the morningmultivitamin (Multiple Vitamins) tablet (15 sources)Start: 04-98-2474rtno 1 tablet by mouth once dailymultivitamin (Multiple Vitamins) tablet Take 1 tablet by mouth once daily. 12/15/2016 Active Multivitamin With Minerals (1 source)Start: 62-79-7041nekd 1 capsule by mouth once dailyMultivitamin With Minerals Active 1 CAP PO Daily March 19, 2024 12:00amMultivitamin With Minerals capsule (17 sources)Start: 23-25-2129epdi 1 capsule by mouth once dailyStart: 03-19-2024 take 1 capsule by mouth once dailyStart: 41-51-4661kggg 1 capsule by mouth once dailyMultivitamin With Minerals capsule Active 1 CAP PO Daily March 19, 2024 1:00am Complies withdrug therapyStart: 44-64-6476rivf 1 capsule by mouth once dailyMultivitamin With Minerals capsule Active 1 CAP PO Daily March 19, 2024 1:00amStart: 84-20-8477kbju 1 capsule by mouth once dailyMultivitamin With Minerals capsule Active 1 CAP PO Daily March 19, 2024 12:00am ofloxacin 3 mg/ml ophthalmic solution (5 sources)Quinolone AntimicrobialStart: 28-71-6422Oumynp (6 sources)Start: 11-70-9236Ajbejb Active 0 .Route October 22, 2023 11:00pm 2 [facility]: 27-74-1050Pbagvo Active 0 .Route October 23, 2023 12:00am 2 liters at HS and napping [facility] Start: 06-74-6640Mwkibe Active 0 .ROUTE October 23, 2023 12:00am 2 liters [facility] HS [facility]apping [facility] 2 liters pm and prn day (9 sources)Oxygen 2 liters pm and prn day at night and during the day prn Active Oxygen unit (17 sources)Start: 54-59-7156Mxtsex unit Active 0 .Route October 23, 2023 12:00am 2 liters [facility] HS [facility]Start: 47-56-4576Wmtflj unit Active 0 .Route October 22, 2023 11:00pm 2 liters at HS and napping [facility] Hospitalpantoprazole 40 mg delayed release oral tablet (20 sources)Proton Pump InhibitorStart: 74-35-6133spym 1 tablet by mouth once daily before breakfastStart: 02-18-2024 End: 85-50-1767khxm 1 tablet by mouth once daily at breakfastPantoprazole 40 mg tablet,delayed release (DR/EC) Discontinued 0 .ROUTE .COMPLEX 90 February 18, 2024 7:41pm July 09, 2024 11:25am TAKE 1 TABLET BY MOUTH ONCE DAILY ON AN EMPTY STOMACH 30 MINUTES prior to BREAKFASTStart: 10-42-4681rcti 1 tablet by mouth once daily at breakfastPantoprazole Active 0 .ROUTE .COMPLEX February 18, 2024 6:41pm TAKE 1 TABLET BY MOUTH ONCE DAILYON AN EMPTY STOMACH 30 MINUTES prior to BREAKFASTStart: 07-08-8484eokd 1 tablet by mouth once daily at breakfastPantoprazole Active 0 .ROUTE .COMPLEX February 18, 2024 7:41pm TAKE 1 TABLET BY MOUTH ONCE DAILYON AN EMPTY STOMACH 30 MINUTES prior to BREAKFAST Start: 08-14-2023 End: 79-32-1265xkfw 1 tablet by mouth once dailyPantoprazole 40 mg tablet,delayed release (DR/EC) Discontinued 40 MG PO Daily September 08, 2023 12:00am February 18, 2024 7:41pmStart: 55-29-7100Fwlohlqemmnh Sodium 40 MG 1 tablet Orally Once a day, on an empty stomach 30 minutes prior to bkfstfor 90 days Feb, Active End: 72-51-0053nryp 1 tablet by mouth once daily before mealtimepantoprazole (ProtoNix) 20 mg EC tablet Take 1 tablet (20 mg) by mouth once daily in the morning. Take before meals. Do not crush, chew, or split. 03/27/2024 Discontinued (Dose adjustment)potassium chloride 10 meq extended release oral tablet (20 sources)Start: 37-87-9337rjmc 1 tablet by mouth once daily in the morning Start: 02-19-2025 End: 74-50-9710xdre 1 tablet by mouth twice dailyPotassium Chloride 20 mEq tablet,ER particles/crystals Discontinued 20 MEQ PO Twice daily February 19, 2025 12:00am March 13, 2025 9:40amStart: 01-23-2025 End: 12-38-2005zklf 1 tablet by mouth once daily in the eveningpotassium chloride CR (Klor-Con M20) 20 mEq ER tablet Indications: Non-ischemic cardiomyopathy (Multi) Take 1 tablet (20 mEq) by mouth once daily. Do not crush or chew. 90 tablet 3 01/23/2025 3:40 PMEDT 01/23/2025 01/23/2026 ActiveStart: 90-97-6271Lghkeuoxu Chloride (Pmh-Npif-Gab 10) 10 mEq oral tablet, extended release 10 mEq = 1 tab(s), Refills(s) 0 Start Date: 08/05/24 Status: Ordered Repeat number: 1Start: 03-27-2024 End: 85-43-6879Zpabjvcmk Chloride (Klor-Con 10) 10 mEq tablet extended release Discontinued 10 MEQ PO Daily November 19, 2024 12:13pm February 19, 2025 1:38pmrivaroxaban 20 mg oral tablet (20 sources)Factor Xa InhibitorStart: 02-04-2024 End: 92-62-1550nxgq 1 tablet by mouth once daily at bedtimesacubitril 24 mg / valsartan 26 mg oral tablet (20 sources)Angiotensin 2 Receptor BlockerStart: 07-09-2024 End: 79-29-6121sshc 1 tablet by mouth every twelve hourssacubitriL-valsartan (Entresto) 24-26 mg tablet Take 1 tablet by mouth every 12 hours. 07/09/2024 Discontinued (Entered in Error)Start: 05-11-2018 End: 71-07-6977xasv 1 tablet by mouth twice dailySacubitril-Valsartan (Entresto) 24-26 mg Tablet Discontinued 1 TAB PO Twice daily May 11, 2018 1:00am November 11, 2024 2:39amStart: 63-20-9980wotq 1 tablet by mouth twice daily Sacubitril-Valsartan (Entresto) 24-26 mg Tablet Active 1 TAB PO Twice daily May 11, 2018 1:00amStart: 58-78-6574cykk 1 tablet by mouth twice daily Sacubitril-Valsartan (Entresto) 24-26 mg Tablet Active 1 TAB PO Twice daily May 11, 2018 12:00amStart: 98-41-0970etau 1 tablet by mouth twice daily Sacubitril-Valsartan (Entresto) 24-26 mg Tablet Active 1 TAB PO Twice daily May 11, 2018 12:00am On Hold: hypotensionStart: 81-98-6904dqdw 1 tablet by mouth twice dailyEntresto 49-51 MG Oral Tablet TAKE 1 TABLET BY MOUTH TWICE DAILY Quantity: 60 Refills: 0 Ordered: 29-Dec-2015 DO Start : 04-Aug-2015 Active ENTRESTO 24 mg/26 mg 1 orally twice a day Activespironolactone 25 mg oral tablet (9 sources)Aldosterone AntagonistStart: 01-09-2025 End: 59-17-1855faog 0.5 tablet by mouth once dailyspironolactone (Aldactone) 25 mg tablet Take 0.5 tablets (12.5 mg) by mouth once daily. Activetamsulosin hydrochloride 0.4 mg oral capsule (20 sources)alpha-Adrenergic BlockerStart: 68-00-8938dvko 1 capsule by mouth twice dailyStart: 10-25-2021 End: 17-07-3447jdbr 1 capsule by mouth once dailyTamsulosin 0.4 mg capsule Discontinued 0.4 MG PO Daily October 25, 2021 12:00am October 25, 2021 2:10pm Start: 12-16-2019 End: 36-02-9462odql 1 capsule by mouth twice dailyTamsulosin 0.4 mg capsule Discontinued 0.4 MG PO Twice daily September 08, 2023 12:00am March 25, 2024 9:49amThera Vitamin (9 sources)Thera Vitamin ActiveVentolin HFA 90 mcg/inh Aerosol-Adpt (2 sources)Start: 38-80-6754Zngwkybs HFA 90 mcg/inh Aerosol-Adpt Refill(s) 0 Start Date: 08/14/23 Status: Ordered Repeat number: 1Start: 20-77-6327Btgyharm HFA 90 mcg/inh Aerosol-Adpt Refill(s) 0 Start Date: 08/14/23 Status: Ordered Completed/Discontinued Medications MedicationDrug Class(es)DatesSig (Normalized)Sig (Original)acetaminophen 500 mg oral tablet (20 sources)Start: 75-50-2357poxm 2 tablets by mouth every six hours as needed for feveracetaminophen 500 mg Tab 1,000 mg = 2 tab(s), Oral, q6hr, PRN for fever, # 120 tab(s), Refills(s) 0Start Date: 08/05/24 Status: Ordered Quantity: 120.0 Unit: tab(s) Repeat number: 1Start: 07-09-2024 End: 12-51-8400ycmc 1-3 tablets by mouth every four hours as needed for pain Acetaminophen 500 mg Tablet Discontinued 500 MG PO Every 4 hours as needed for Pain Scale 1 - 3 or fever November 11, 2024 12:00am January 02, 2025 2:56pmStart: 07-09-2024 End: 24-94-0951wvvf 1-3 tablets by mouth every six hours as needed for pain Acetaminophen 500 mg Tablet Discontinued 1000 MG PO Every 6 hours as needed for Pain Scale 1 - 3 orfever 0 0 July 09, 2024 1:00am November 11, 2024 4:46pm amiodarone hydrochloride 200 mg oral tablet (20 sources)AntiarrhythmicStart: 03-25-2024 End: 89-78-3598rogm 1 tablet by mouth once dailyAmiodarone 200 mg tablet Discontinued 200 MG PO Daily March 25, 2024 1:00am March 25, 2024 3:33pmStart: 03-14-2024 End: 20-50-2469dbuw 1 tablet by mouth twice dailyamiodarone (Pacerone) 200 mg tablet Indications: Atrial fibrillation, unspecified type (Multi) Take1 tablet (200 mg) by mouth 2 times a day. 60 tablet 1 03/14/2024 03/27/2024 Discontinued (Therapy completed)Start: 03-01-2024 End: 45-88-1667awuk 2 tablets by mouth twice dailyAmiodarone 200 mg Tablet Discontinued 400 MG PO Twice daily March 01, 2024 12:00am March 20, 2024 1:50pmStart: 03-01-2024 End: 08-36-6176eout 400 mg by mouth twice dailyAmiodarone Discontinued 400 MG PO Twice daily 28 February 29, 2024 11:00pm March 20, 2024 12:50pmStart: 03-01-2024 End: 47-07-0833vfph 400 mg by mouth twice dailyAmiodarone Discontinued 200 MG PO Twice daily 60 February 29, 2024 11:00pm March 20, 2024 12:50pm start after you complete 400 mg twice daily for 7 daysamoxicillin 875 mg oral tablet (20 sources)Penicillin-class AntibacterialStart: 05-11-2018 End: 46-36-7671vnxv 1 tablet by mouth twice dailyAmoxicillin 875 mg Tablet Discontinued 875 MG PO Twice daily May 11, 2018 1:00am July 05, 2018 2:03amamoxicillin 875 mg / clavulanate 125 mg oral tablet (20 sources)Penicillin-class AntibacterialStart: 02-11-2019 End: 54-89-6365jmje 1 tablet by mouth every twelve hoursAmoxicillin-Pot Clavulanate (Augmentin) 875-125 mg tablet Discontinued 1 TAB PO Q12H 20 February 11, 2019 12:00am October 25, 2021 2:09pm Eat yogurt or take probiotic while on antibiotic.azithromycin 250 mg oral tablet (2 sources)Macrolide AntimicrobialStart: 02-19-2025 End: 16-60-9270wbim 1 tablet by mouth once dailyAzithromycin 250 mg Tablet Discontinued 250 MG PO Daily 4 4 0 February 19, 2025 12:00am March 13, 2025 9:36ambaclofen 10 mg oral tablet (20 sources)gamma-Aminobutyric Acid-ergic AgonistStart: 03-08-2024 End: 30-46-7590erpo 1 tablet by mouth four times daily as needed for muscle spasmsBaclofen 10 mg tablet Discontinued 10 MG PO Four times daily as needed for muscle spasm 28 7 0 March 08, 2024 12:00am March 25, 2024 3:54pm carvedilol 6.25 mg oral tablet (20 sources)alpha-Adrenergic Abisai, beta-Adrenergic BlockerStart: 03-20-2024 End: 77-47-1620vstt 3 tablets by mouth every twelve hourscarvedilol (Coreg) 6.25 mg tablet Take 3 tablets (18.75 mg) by mouth every 12 hours. 03/20/202405/15 Discontinued (Side effects)Start: 03-19-2024 End: 16-32-1128yhxz 3 tablets by mouth twice dailyCarvedilol 6.25 mg tablet Discontinued 18.75 MG PO Twice daily March 25, 2024 3:29pm June 03, 2024 3:41pmStart: 60-91-0561cohu 18.75 mg by mouth twice dailyCarvedilol Active 18.75 MG PO Twice daily 180 30 March 19, 2024 12:00amStart: 10-12-2023 End: 28-55-7946zfvz 1 tablet by mouth twice dailyCarvedilol 12.5 mg tablet Discontinued 12.5 MG PO Twice daily 60 11 10February 14, 2024 2:50pm March 20, 2024 1:50pmStart: 09-08-2023 End: 34-67-8082xvkc 1 tablet by mouth twice dailyCarvedilol 6.25 mg tablet Discontinued 6.25 MG PO Twice daily September 08, 2023 12:00am October 12, 2023 2:00pmStart: 34-56-8324jzma 6.25 mg by mouth twice dailyCarvedilol Active 6.25 MG PO Twice daily February 10, 2019 12:09amStart: 05-13-2018 End: 25-75-8737nuix 1 tablet by mouth twice dailyCarvedilol 12.5 mg tablet Discontinued 12.5 MG PO Twice daily February 10, 2019 12:09am September 08, 2023 3:44pmStart: 05-11-2018 End: 29-92-4846nxqa 1 tablet by mouth twice dailyCarvedilol 6.25 mg Tablet Discontinued 6.25 MG PO Twice daily May 11, 2018 1:00am May 13, 2018 2:03pmcefpodoxime 200 mg oral tablet (9 sources)Cephalosporin AntibacterialStart: 11-12-2024 End: 51-80-1097emvd 1 tablet by mouth twice daily at mealtimeCefpodoxime 200 mg tablet Discontinued 200 MG PO Twice daily 6 3 0 November 12, 2024 12:00am January 02, 2025 3:05pm must administer with a meal/foodcephalexin 500 mg oral capsule (20 sources)Cephalosporin AntibacterialStart: 07-06-2018 End: 98-76-5924zpxf 1 capsule by mouth twice dailyCephalexin 500 mg capsule Discontinued 500 MG PO Twice daily 10 5 0 July 06, 2018 1:00am February 10, 2019 12:10amfinasteride 5 mg oral tablet (20 sources)5-alpha Reductase InhibitorStart: 02-17-2020 End: 12-41-9055qcot 1 tablet by mouth once dailyFinasteride 5 mg tablet Discontinued 5 MG PO Daily October 25, 2021 12:00am September 11, 2023 3:39pm fluticasone propionate 0.05 mg/actuat metered dose nasal spray (20 sources)CorticosteroidStart: 09-08-2023 End: 41-97-1608Awhdhcgiehk Propionate 50 mcg/actuation spray,suspension Discontinued 1 SPRAY INTRANASAL Daily September 08, 2023 12:00am July 09, 2024 11:25amStart: 59-82-1972thxhoqpjgwr 0.05 mg/inh Nasal Davin Nasal, Daily, Refill(s) 0 Start Date: 09/11/19 Status: OrderedStart: 05-11-2018 End: 75-91-4835Cprajdrvxwy Propionate 50 mcg/actuation Davin,Suspension Discontinued 1 SPRAY INTRANASAL Daily May 11, 2018 1:00am February 10, 2019 12:13amStart: 13-50-3099glds 1 spray(s) nasal route once dailyFluticasone Propionate 50 MCG/ACT 1 spray in each nostril Nasally Once a day for 21 days Apr, ActiveStart: 42-33-8256onux 1 spray(s) nasal route once daily Fluticasone Propionate 50 MCG/ACT 1 spray in each nostril Nasally Once a day for 21 days Apr, ActiveFluticasone Propion-Salmeterol (20 sources)Corticosteroid, beta2-Adrenergic AgonistStart: 02-02-2024 End: 51-94-4264Rrqcjpdrofc Propion-Salmeterol 500-50 mcg/dose blister with device Discontinued INHALATION February 02, 2024 12:00am June 03, 2024 3:41pmStart: 02-02-2024 End: 04-26-2279Ovcmgueyyum Propion-Salmeterol 500-50 mcg/dose blister with device Discontinued INHALATION February 01, 2024 11:00pm June 03, 2024 2:41pmStart: 90-04-7406Oxsczoemthp Propion-Salmeterol 500-50 mcg/dose blister with device Active INHALATION February 01, 2024 11:00pmStart: 02-02-2024 Fluticasone Propion-Salmeterol Active INHALATION February 01, 2024 11:00pm Start: 94-59-4924Kmurosxcldl Propion-Salmeterol Active INHALATION February 02, 2024 12:00amStart: 09-15-2023 End: 58-64-8916Yoeaufrdgwl Propion-Salmeterol (Wixela Inhub) 500-50 mcg/dose blister with device Discontinued 1 INH INHALATION Twice daily 180 90 3 September 15, 2023 4:51pm October 23, 2023 3:25pmStart: 09-15-2023 End: 68-40-9771Tzgyaybacqg Propion-Salmeterol (Wixela Inhub) 500-50 mcg/dose blister with device Discontinued 1 INH INHALATION Twice daily 180 90 September 15, 2023 3:51pm October 23, 2023 2:25pmStart: 09-15-2023 End: 78-88-6714Clcdczntrxc Propion-Salmeterol (Wixela Inhub) 500-50 mcg/dose blister with device Discontinued 1 INH INHALATION Twice daily 180 90 September 15, 2023 4:51pm October 23, 2023 3:25pmStart: 09-15-2023 End: 20-69-0850Sewesfsvjdm Propion-Salmeterol (Wixela Inhub) 500-50 mcg/dose blister with device Discontinued 1 INH INHALATION Twice daily September 14, 2023 11:00pm September 15, 2023 3:51pmStart: 09-15-2023 End: 81-22-7082Vkepqeomyam Propion-Salmeterol (Wixela Inhub) 500-50 mcg/dose blister with device Discontinued 1 INH INHALATION Twice daily September 15, 2023 12:00am September 15, 2023 4:51pmStart: 57-83-1106[place] Inhub 500 mcg-50 mcg inhalation powder Refill(s) 0 Start Date: 08/14/23 Status: Ordered Repeatnumber: 1 Start: 99-76-6711owdflfbgaja propion-salmeteroL (Advair Diskus) 500-50 mcg/dose diskus inhaler Inhale 1 puff. 08/14/2023 ActiveStart: 66-62-9172Cefoua 100 mcg- 50 mcg Powder inh, Inhalation, BID, Refill(s) 0 Start Date: 09/11/19 Status: OrderedStart: 90-35-8192tjfr 1 puff(s) by inhalation twice dailyAdvair Diskus 500-50 MCG/ACT 1 puff Inhalation Twice a day for 90 days Jun, Active Start: 88-07-6913Bztljkmjxew Propion-Salmeterol (Advair Hfa) 230-21 mcg/actuation HFA aerosol inhaler Active 2 INH INHALATION Twice daily May 13, 2018 3:28pmStart: 05-13-2018 End: 12-56-1809Bdirxixpdpa Propion-Salmeterol (Advair Hfa) 230-21 mcg/actuation HFA aerosol inhaler Discontinued 2INH INHALATION Twice daily 8 May 13, 2018 1:00am October 12, 2023 2:01pmStart: 05-13-2018 End: 04-33-5048Wnstqwzticd Propion-Salmeterol (Advair Hfa) 230-21 mcg/actuation HFA aerosol inhaler Discontinued 2INH INHALATION Twice daily May 13, 2018 12:00am October 12, 2023 1:01pmStart: 05-13-2018 End: 77-13-1187Vliauapwofx Propion-Salmeterol (Advair Hfa) 230-21 mcg/actuation HFA aerosol inhaler Discontinued 2INH INHALATION Twice daily May 13, 2018 1:00am October 12, 2023 2:01pmStart: 05-11-2018 End: 88-46-6271Qcqqogunumy Propion-Salmeterol (Advair Diskus) 500-50 mcg/dose Blister With Device Discontinued 1 INH INHALATION Twice daily May 11, 2018 9:16pm May 13, 2018 2:03pmStart: 05-11-2018 End: 03-12-9309Nxdhltjfnxy Propion-Salmeterol (Advair Diskus) 500-50 mcg/dose Blister With Device Discontinued 1 INH INHALATION Twice daily May 11, 2018 12:00am May 13, 2018 1:03pmStart: 05-11-2018 End: 43-93-5306Tpdrcnifyue Propion-Salmeterol (Advair Diskus) 500-50 mcg/dose Blister With Device Discontinued 1 INH INHALATION Twice daily May 11, 2018 1:00am May 13, 2018 2:58exSrtqlnbfxgi-Ustprfklr-Nnpwxugs (20 sources)Start: 10-23-2023 End: 56-95-3215Wfscuiowicc-Umeclidin-Vilanter (Trelegy Ellipta) 200-62.5-25 mcg blister with device Discontinued 1INH INHALATION Daily 180 4 October 23, 2023 12:00am January 02, 2025 3:06pm Bullous emphysema Emphysema, unspecified Rinse after useStart: 10-23-2023 End: 95-48-2453Qhjpiyntvwz-Umeclidin-Vilanter (Trelegy Ellipta) 200-62.5-25 mcg blister with device Discontinued 1INH INHALATION Daily 180 October 23, 2023 12:00am January 02, 2025 3:06pm Rinse after useStart: 46-92-8679Fxqge: 10-26-7634Vaaedaxollg-Umeclidin-Vilanter (Trelegy Ellipta) 200-62.5-25 mcg blister with device Active 1 INH INHALATION Daily 180 October 23, 2023 12:00am Rinse after use Complies with drug therapyStart: 10-23-2023 Nnuhyqidbie-Vofrtfnsd-Rzszydgs (Trelegy Ellipta) 200-62.5-25 mcg blister with device Active 1 INH INHALATION Daily 180 October 22, 2023 11:00pm Rinse after use Start: 75-26-0640Rksaygjgvln-Umeclidin-Vilanter (Trelegy Ellipta) 200-62.5-25 mcg blister with device Active 1 INH INHALATION Daily 180 October 23, 2023 12:00am Rinse after alwxsznfverunm-jwrngteek-xpwhcvee (TRELEGY-ELLIPTA) 200-62.5-25 mcg blister with device (11 sources)Start: 10-23-2023 End: 60-78-3617yadjsxqnmfu-umeclidin-vilanter (TRELEGY-ELLIPTA) 200-62.5-25 mcg blister with device Lxstqfswvrh-Gkvbyjkoi-Obniizqj (Trelegy Ellipta) 200-62.5-25 mcg blister with device Active 1 INH INHALATION [id number] October 22, 2023 11:00pm Rinse after use 10/23/2023 01/15/2025 Discontinued (Therapy completed)Start: 25-18-7994ouchzssimgi-umeclidin-vilanter (TRELEGY-ELLIPTA) 200-62.5-25 mcg blister with device Ynknaqfiebl-Xuvegglgr-Ucyeoddf (Trelegy Ellipta) 200-62.5-25 mcg blister with device Active 1 INH INHALATION Hgqrq702 October 22, 2023 11:00pm Rinse after use 10/23/2023 Activefurosemide 40 mg oral tablet (20 sources)Loop DiureticStart: 01-09-2025 End: 50-18-9677zovn 1 tablet by mouth once daily as needed for edemaStart: 44-74-5244uaqa 1 tablet by mouth twice dailyFurosemide 20 mg tablet Active 20 MG PO Twice daily June 03, 2024 1:00am Complies with drug therapyStart: 03-19-2024 End: 68-08-3228tlwt 1 tablet by mouth twice dailyFurosemide 20 mg Tablet Discontinued 20 MG PO BID@0800,1600 90 30 3 March 19, 2024 1:00am April 02, 2024 1:34pmStart: 08-09-2021 End: 12-28-3463pmdi 1 tablet by mouth once daily as needed for edemaFurosemide 20 mg tablet Discontinued 20 MG PO Daily as needed for edema June 03, 2024 1:00am January 09, 2025 11:58am Right leg edemaStart: 05-13-2018 End: 97-82-9121uyoo 1 tablet by mouth once dailyFurosemide (Lasix) 40 mg tablet Discontinued 40 MG PO Daily 30 May 13, 2018 1:00am February 10, 2019 12:10amgadoterate meglumine (Dotarem) 0.5 mmol/mL contrast injection 25 mL (1 source)Start: 01-28-2025 End: 75-87-5503mvmolj 25 mL intravenously once25 mL, intravenous, Once in imaging, Starting on Mon01/28/25 at 1007, For 1 dose, Administer undiluted as rapid I.V. bolus gganpkiet95 hr guaiFENesin 600 mg extended release oral tablet (9 sources)Start: 11-12-2024 End: 29-64-9098cddk 1 tablet by mouth twice dailyGuaifenesin 600 mg Tablet Extended Release 12hr Discontinued 1200 MG PO Twice daily 20 5 0 November 12, 2024 12:00am January 02, 2025 3:06pmmagnesium hydroxide 80 mg/ml oral suspension (14 sources)Start: 07-09-2024 End: 15-64-1807atxk 1 mL by mouth once daily as needed for constipationMagnesium Hydroxide (Milk Of Magnesia) 400 mg/5 mL suspension Discontinued 5 ML PO Daily as needed for constipation November 11, 2024 12:00am January 02, 2025 3:07pm magnesium oxide 400 mg oral tablet (20 sources)Start: 03-27-2024 End: 00-68-5184jfwy 1 tablet by mouth once dailyMagnesium Oxide 400 mg (241.3 mg magnesium) tablet Discontinued 400 MG PO Daily June 03, 2024 1:00am January 05, 2025 3:03ammenthol 0.04 mg/mg topical gel (14 sources)Start: 07-12-2024 End: 35-67-3923Ymietan (Biofreeze (Menthol)) 4 % gel Discontinued 1 APPLIC TOPICAL Daily as needed for pain November 11, 2024 12:00am January 05, 2025 3:03ammethylPREDNISolone 4 mg oral tablet (20 sources)CorticosteroidStart: 05-13-2018 End: 54-75-0104eylk 1 tablet by mouth onceMethylprednisolone (Medrol (Man)) 4 mg tablets,dose pack Discontinued 0 PO per package directions 21 May 13, 2018 1:00am July 06, 2018 1:34pm PO PER PKG DIRMultiple Vitamins Oral Tablet (8 sources)Start: 54-90-0530Gmsbkjld Vitamins Oral Tablet Quantity: 0 Refills: 0 Ordered: 15-Dec-2016 DO Start : 15-Dec-2016 ActivePantoprazole 40 mg tablet,delayed release (DR/EC) (7 sources)Start: 02-18-2024 End: 83-91-1955kzid 1 tablet by mouth once daily at breakfastPantoprazole 40 mg tablet,delayed release (DR/EC) Discontinued 0 .ROUTE .COMPLEX February 18, 2024 7:41pm July 09, 2024 11:25am TAKE 1 TABLET BY MOUTH ONCE DAILY ON AN EMPTY STOMACH 30 MINUTES prior to BREAKFASTStart: 02-18-2024 End: 21-71-0343xpdo 1 tablet by mouth once daily at breakfastPantoprazole 40 mg tablet,delayed release (DR/EC) Discontinued 0 .ROUTE .COMPLEX February 18, 2024 6:41pm July 09, 2024 10:25am TAKE 1 TABLET BY MOUTH ONCE DAILY ON AN EMPTY STOMACH 30 MINUTES prior to BREAKFASTStart: 46-35-7524gsor 1 tablet by mouth once daily at breakfastPantoprazole 40 mg tablet,delayed release (DR/EC) Active 0 .ROUTE .COMPLEX February 18, 2024 6:41pm TAKE 1 TABLET BY MOUTH ONCE DAILY ON AN EMPTY STOMACH 30 MINUTES prior to BREAKFASTpolysaccharide iron complex 150 mg oral capsule (20 sources)Start: 05-11-2018 End: 57-09-2709Sisbpwvnjxgvjn Iron Complex (Ferrex 150) 150 mg iron Capsule Discontinued 150 MG PO Daily May 11, 2018 1:00am February 10, 2019 12:11amprednisoLONE acetate 10 mg/ml ophthalmic suspension (9 sources)CorticosteroidStart: 11-11-2024 End: 10-57-7004yqbb 1 drop(s) into the eye(s) once dailyPrednisolone Acetate 1 % drops,suspension Discontinued 1 DROPS EYE-LEFT Daily November 11, 2024 12:00am March 13, 2025 9:38am ShinglesStart: 77-64-9916cqiy 1 drop(s) into the eye(s) four times dailyPrednisolone Acetate 1 % drops,suspension Active 1 DROPS EYE-LEFT Four times daily November 11, 2024 12:00am Complies with drug therapy predniSONE 10 mg oral tablet (20 sources)Start: 02-19-2025 End: 65-70-7082Ssmhkjvdha 10 mg tablet Discontinued 10 MG PO As Directed 40 0 February 19, 2025 12:00am March 13, 2025 9:38am Take 4 pills for 4 days Take 3 pills for 4 days Take 2 pills for 4 days Take 1 pill for 4 days then stop Start: 01-09-2025 End: 15-89-8665Fhnhisrqap 10 mg tablet Discontinued 10 MG PO As Directed 40 0 January 09, 2025 12:00am February 16, 2025 1:50am Take 4 pills for 4 days Take 3 pills for 4 days Take 2 pills for 4 days Take 1 pill for 4 days then stop Start: 11-12-2024 End: 96-67-3484Jvjrxcfbef 10 mg tablet Discontinued 10 MG PO Daily 39 0 November 12, 2024 12:00am January 02, 2025 3:08pm take 60mg (6 tabs aday) for 3 days, then 40mg (4tabs) for 3 days, then 20mg (2tabs) for 3 days, then 10mg (1tab) for 3 days.Start: 02-10-2019 End: 35-10-8137sumw 5 mg by mouth once dailyPrednisone 20 mg tablet Discontinued 5 MG PO Daily February 10, 2019 12:15am September 08, 2023 3:45pmStart: 02-10-2019 End: 57-73-0880bpqu 5 mg by mouth once dailyPrednisone Discontinued 5 MG PO Daily February 09, 2019 11:15pm September 08, 2023 2:45pmStart: 07-06-2018 End: 02-68-3734Eackfwotqb 20 mg tablet Discontinued 20 MG PO As Directed 11 July 06, 2018 1:00am 2018 12:07am administer with food or milk. Take 40mg for 3 days,then 20 mg for 3 days, then 10 mg for 3 days, then continue 5 mg as you used to takeStart: 11-18-2010 End: 18-46-7178xwou 1 tablet by mouth once dailyPrednisone 5 mg tablet Discontinued 5 MG PO Daily September 08, 2023 12:00am February 28, 2024 11:35pm regadenoson (Lexiscan) injection 0.4 mg (1 source)Start: 06-12-2024 End: .4 mg, intravenous, Once, On Mon06/12/24 at 1330, For 1 doseTc- 99m tetrofosmin (Myoview) injection 10 millicurie (1 source)Start: 06-12-2024 End: 02-06-620260 millicurie, intravenous, Once in imaging, Starting on Mon06/12/24 at 1245, For 1 dose, Administer 45 to 90 minutes prior to imaging unless otherwise indicated.Tc-99m tetrofosmin (Myoview) injection 30 millicurie (1 source)Start: 06-12-2024 End: millicurie, intravenous, Once in imaging, Starting on Mon06/12/24 at 1349, For 1 dose, Administer 45 to 90 minutes prior to imaging unless otherwise indicated.tiotropium 0.018 mg inhalation powder (20 sources)AnticholinergicStart: 05-11-2018 End: 48-35-5250agrf 1 capsule by inhalation once dailyTiotropium [place] (Spiriva With Handihaler) 18 mcg Capsule, W/Inhalation Device Discontinued 1 CAP INHALATION Daily May 11, 2018 1:00am September 08, 2023 3:46pmvalACYclovir 1000 mg oral tablet (10 sources)Herpesvirus Nucleoside Analog DNA Polymerase Inhibitor, Herpes Simplex Virus Nucleoside Analog DNA Polymerase Inhibitor, Herpes Zoster Virus Nucleoside Analog DNA Polymerase InhibitorStart: 01-02-2025 End: 09-33-4532Xmwgvzddmcxm 1 gram tablet Discontinued 1000 MG PO Twice daily January 02, 2025 12:00am March 13, 2025 9:39am shingles in eyetake 1 tablet by mouth twice dailyvalACYclovir (Valtrex) 1 gram tablet Take 1 tablet (1,000 mg) by mouth 2 times a day. Activevalsartan 40 mg oral tablet (20 sources)Angiotensin 2 Receptor BlockerStart: 01-09-2025 End: 58-76-9956jxce 1 tablet by mouth once dailyValsartan 40 mg Tablet Discontinued 40 MG PO Daily January 09, 2025 12:00am January 16, 2025 8:34pmStart: 05-17-2024 End: 46-73-6266Kofrxvita 40 mg tablet Discontinued 20 MG PO Daily May 17, 2024 12:32pm June 11:25am On Hold: NoneStart: 04-30-2024 End: 41-55-6248Lbvgoslbo 40 mg tablet Discontinued 20 MG PO Twice daily May 06, 2024 2:28pm 2024 12:33pm Problems Active Problems Problem ClassificationProblemDateDocumented DateEpisodic/ChronicAbdominal hernia (9 sources)Hiatal hernia; Translations: [Diaphragmatic hernia without obstruction or gangrene]EpisodicAbdominal pain (20 sources)Abdominal pain; Translations: [Unspecified abdominal pain]03-08-2024 EpisodicAcute myocardial infarction (16 sources)Myocardial infarction; Translations: [Non-ST elevation (NSTEMI) myocardial infarction]Onset: [id number]xzdda/social admission (3 sources)Drug indicated; Translations: [Long-term current use of steroids] EpisodicAlcohol-related disorders (20 sources)Nondependent alcohol abuse; Translations: [Nondependent alcohol abuse, unspecified pattern of use]Onset: [id number] on above: not anymore Allergic reactions (1 source)Allergic bronchopulmonary aspergillosis; Translations: [Allergic bronchopulmonary aspergillosis]Onset: 40-88-1249MjahnybUeybunn dysrhythmias (20 sources)Nonsustained paroxysmal ventricular tachycardia; Translations: [Nonsustained paroxysmal ventriculartachycardia]Onset: 316528-33-1949 ChronicChronic obstructive pulmonary disease and bronchiectasis (20 sources)Chronic obstructive lung disease; Translations: [Chronic airway obstruction, not elsewhere classified]Onset: 2021 Resolved: [id number] of surgical procedures or medical care (1 source)Drug-induced hypotension; Translations: [Hypotension due to drugs] 84-69-7951PjfjvwswEqfgtflczk heart failure; nonhypertensive (20 sources)Chronic systolic heart failure; Translations: [Chronic systolic (congestive) heart failure]Onset: 610746-99-0075ErdlffbIifxrek on above: Echo: LVEF 45-50%, normal RV size/function, mild aortic root dilatation 4.0 cm - 02/2024Echo: LVEF 25% - 01/2015,Echo: LVEF 58% - 08/2015,Echo: LVEF 45-50%, normal RV size/function, mild aortic root dilatation 4.0 cm - 02/2024,Echo: LVEF 50% - 07/2024,Echo: LVEF 45-50%, LAE, LVH, normal RVsize/function - 12/2024, Echo: apical balooning w/ LVEF 25-30% - oronary atherosclerosis and other heart disease (4 sources)History of non-ST segment elevation myocardial infarction; Translations: [Old myocardial infarction]73-25-5087GositlaJewoovairl and other anemia (2 sources)Chronic anemia; Translations: [Anemia in other chronic diseases classified elsewhere]04-67-0971XtnmxctKqkcskbwls and other anemia (1 source)Anemia due to chronic blood loss; Translations: [Iron deficiency anemia secondary to blood loss (chronic)]Onset: 90-03-8835JhowtuaFqwoewhrkq and other anemia (20 sources)Anemia; Translations: [Anemia, unspecified]37-92-7754Ndinmrsx Deficiency and other anemia (2 sources)Anemia, unspecified; Translations: [Anemia, unspecified]Onset: 10-07-2021 Resolved: 94-95-1063RippaumlZjsgpzruzw and other anemia (9 sources)Iron deficiency anemia; Translations: [Iron deficiency anemia, unspecified]EpisodicDisorders of lipid metabolism (1 source)Dyslipidemia; Translations: [Hyperlipidemia, unspecified]03-27-2024 ChronicDiverticulosis and diverticulitis (9 sources)Diverticular disease; Translations: [Diverticulosis of intestine, part unspecified, without perforation or abscess without bleeding]Chronic Esophageal disorders (10 sources)Gastro-esophageal reflux disease with esophagitis; Translations: [Gastroesophageal reflux disease with esophagitis without hemorrhage]Onset: 578579-24-0482RbxkorxSdgvnodch hypertension (20 sources)Hypertensive disorder; Translations: [Essential (primary) hypertension]Onset: 716233-89-8542AskjgwjWaein and electrolyte disorders (20 sources)Hyponatremia; Translations: [Hypo-osmolality and hyponatremia]Onset: 598594-91-0240PuymykktVnmvbrfeijprxlob hemorrhage (20 sources)Rectal hemorrhage; Translations: [Hemorrhage of anus and rectum] 21-59-0773TfepbhovSdoisbjpaqslo symptoms and ill-defined conditions (5 sources)Urinary ldosyfxawxko16-24-8521JhsliyrNqlzmaltjyzwm symptoms and ill- defined conditions (20 sources)Retention of urine; Translations: [Retention of urine, unspecified] Onset: 49-74-4207QietsqkmImbv and other crystal arthropathies (6 sources)Gout; Translations: [Primary gout]Onset: 652450-82-1477Wnjdifo Hemorrhoids (11 sources)Internal hemorrhoids; Translations: [Other hemorrhoids]02-10-2019 EpisodicHyperplasia of prostate (20 sources)Benign prostatic hypertrophy with outflow obstruction; Translations: [Benign prostatic hyperplasia with lower urinary tract symptoms]Onset: 26-65-8976HcbzhsnKccodzcl disorders (20 sources)Pulmonary sarcoidosis; Translations: [Sarcoidosis]Onset: 11-11-2015 Resolved: [id number]npbj and screening for infectious disease (1 source)Vaccination given; Translations: [Encounter for immunization]Episodic Mood disorders (5 sources)Depressive nkoeeafb24-26-3189MxbkskuCynqpvp (9 sources)Aspergillosis; Translations: [Aspergillosis, unspecified]Episodic Nutritional deficiencies (3 sources)Deficiency of macronutrients; Translations: [Unspecified severe protein-calorie malnutrition]Onset: 050229-18-4447UnlnxrsIvnaalaqk or stenosis of precerebral arteries (20 sources)Right carotid artery stenosis; Translations: [Occlusion and stenosis of right carotid artery]Onset: 227189-75-6514ZfowwizXijqxud on above:CTA: 90% right ICA - 02/2024Osteoarthritis (1 source)Localized, primary osteoarthritis of the pelvic region and thigh; Translations: [Unilateral primaryosteoarthritis, right hip]ChronicOther aftercare (4 sources)Other buttermaker helper (current) drug therapy; Translations: [OTH BIOLOGICAL AIDE CURRENT DRUG THERAPY]Onset: 33-26-8292DktdbbsdStzvw aftercare (1 source)Long-term current use of drug therapy; Translations: [Other intermediate (current) drug therapy]EpisodicOther aftercare (20 sources)Drug therapy finding; Translations: [meterman (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]18-09-2050ZvawidpjLdxbt aftercare (11 sources)meterman (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; Translations: [Long-term (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]Onset: 339117-43-3948JajnayrbMzdqj aftercare (4 sources)Long-term current use of anticoagulant; Translations: [half-way (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]Onset: 740998-12-8311EiyohcnqFfwhd and ill-defined heart disease (20 sources)Mural thrombus of left ventricle; Translations: [Acute myocardial infarction of unspecified site, episode of care unspecified]Onset: 07-26-2023 09-95-0557PelmhnmMzocg and ill-defined heart disease (20 sources)Diastolic dysfunction; Translations: [Heart disease, unspecified] Onset: 286679-76-3915IiezdftKhwoz and ill-defined heart disease (8 sources)Left ventricular systolic dysfunction; Translations: [Other ill- defined heart diseases]52-25-8401LnjfpwqMpayv and ill-defined heart disease (8 sources)Other ill-defined heart diseases; Translations: [Heart disease, unspecified]Onset: 902039-85-1229TxmhkbjAxgmt and ill-defined heart disease (10 sources)Mild left ventricular systolic dysfunction; Translations: [Other ill-defined heart diseases]17-98-5589NjzepniJehka and ill-defined heart disease (14 sources)Takotsubo cardiomyopathy; Translations: [Takotsubo syndrome]Onset: 359589-50-1038NzijvjpIwuoj and ill-defined heart disease (4 sources)Left ventricular cardiac dysfunction; Translations: [Heart disease, unspecified]Onset: 095896-86-5150AssxlvhTjcop and ill-defined heart disease (3 sources)Takotsubo syndrome; Translations: [Takotsubo syndrome]Onset: 69-32-9719MmpxvsqTgdew and ill-defined heart disease (4 sources)Intracardiac thrombosis, not elsewhere classified; Translations: [Intracardiac thrombosis, not elsewhere classified]Onset: 70-79-4979CphzlmmUlxkx and unspecified benign neoplasm (20 sources)Cerebellopontine angle tumor; Translations: [Benign neoplasm of cranial nerves]Onset: 473808-39-4686EyxhutaCniet and unspecified benign neoplasm (10 sources)Benign neoplasm of cranial nerves; Translations: [Benign neoplasm of cranial nerves]Onset: 69-10-1290OjltyhvHdedu and unspecified benign neoplasm (20 sources)Acoustic neuroma; Translations: [Benign neoplasm of cranial nerves] 93-66-9204PmqvxtlDiahh and unspecified benign neoplasm (20 sources)History of polyp of colon; Translations: [Personal history of colonic polyps]36-70-5966XgoqeyjsXhmrf and unspecified benign neoplasm (3 sources)Personal history of colonic polyps; Translations: [Personal history of colonic polyps]Onset: 10-07-2021 Resolved: 24-39-0889GuopmmwqEggtm and unspecified benign neoplasm (9 sources)Benign neoplasm of cecum; Translations: [Benign neoplasm of cecum] EpisodicOther and unspecified benign neoplasm (1 source)Benign neoplasm of sigmoid colon; Translations: [Benign neoplasm of sigmoid colon]EpisodicOther circulatory disease (9 sources)Low blood pressure; Translations: [Hypotension, unspecified]Onset: 795982-22-3869GpswurmmSmzpp circulatory disease (4 sources)Hypotension, unspecified; Translations: [Hypotension, unspecified] 95-15-3501GgctcfopSaixl connective tissue disease (5 sources)Muscle weakness; Translations: [Muscle weakness (generalized)]Onset: 188807-57-3063RcpflygjVlytj connective tissue disease (6 sources)Muscle pain; Translations: [Myalgia, unspecified site]02-16-2025 EpisodicOther diseases of kidney and ureters (1 source)Urinary tract obstruction; Translations: [Other obstructive and reflux uropathy]Onset: 16-13-8120IobogygoCapya ear and sense organ disorders (20 sources)Asymmetrical sensorineural hearing loss; Translations: [Sensorineural hearing loss, asymmetrical]Onset: 753134-69-4378Nsjsakn Other ear and sense organ disorders (20 sources)Bilateral hearing loss; Translations: [Mixed hearing loss, bilateral]Onset: 158462-15-9430GicdoupEfofz endocrine disorders (4 sources)Syndrome of inappropriate secretion of antidiuretic hormone; Translations: [SYNDROME INAPPROPRIATE SEC ADH]Onset: 77-10-8858WydbroyPktac endocrine disorders (1 source)Syndrome of inappropriate vasopressin secretion; Translations: [Syndrome of inappropriate secretionof antidiuretic hormone]ChronicOther endocrine disorders (1 source)Hypercortisolism; 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]Onset: 09-18-2015 ChronicOther fractures (14 sources)Compression fracture of thoracic spine; Translations: [Wedge compression fracture of unspecified thoracic vertebra, initial encounter for closed fracture]11-83-5687DcxkzlznRsusr fractures (5 sources)Fracture of seventh thoracic vertebra; Translations: [Wedge compression fracture of T7-T8 vertebra,subsequent encounter for fracture with routine healing]Onset: 445588-89-5719UvymgrvaSxqva fractures (5 sources)Closed fracture thoracic vertebra, wedge; Translations: [Wedge compression fracture of T7-T8 vertebra, subsequent encounter for fracture with routine healing]Onset: 717760-87-7574XgobifrlSagsi hematologic conditions (18 sources)H/O: Disorder; Translations: [Personal history of diseases of the blood and blood-forming organs and certain disorders involving the immune mechanism]46-33-5982ZxyygehpMdivo hematologic conditions (1 source)Personal history of diseases of the blood and blood-forming organs and certain disorders involving the immune mechanism; Translations: [Personal history of diseases of the blood and blood-forming organs and certain disorders involving the immune mechanism]Onset: 70-63-9540DtoixtufEcxvf infections; including parasitic (1 source)H/O: infectious disease; Translations: [Personal history of other infectious and parasitic diseases]EpisodicOther infections; including parasitic (20 sources)Personal history of other infectious and parasitic diseases; 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]Onset: 757178-51-9875FgywlashYdnhw lower respiratory disease (9 sources)Post-inflammatory pulmonary fibrosis; Translations: [Other interstitial pulmonary diseases with fibrosis in diseases classified elsewhere] ChronicOther lower respiratory disease (1 source)Other interstitial pulmonary diseases with fibrosis in diseases classified elsewhereOnset: 2021 Resolved: 66-22-8443OilcezdGwryj lower respiratory disease (1 source)Parietoalveolar pneumopathy; Translations: [Interstitial pulmonary disease, unspecified]ChronicOther lower respiratory disease (1 source)Diffuse interstitial pulmonary fibrosis; Translations: [Other interstitial pulmonary diseases with fibrosis in diseases classified elsewhere] Onset: 28-67-8135PzgkukzXqeod lower respiratory disease (8 sources)Disorder of lung; Translations: [Respiratory abnormality, unspecified]EpisodicOther lower respiratory disease (7 sources)Shortness of breath; Translations: [Shortness of breath]Onset: 598824-90-6181NluvxkxpXcalf lower respiratory disease (8 sources)Hypoxemia; Translations: [Hypoxemia]30-95-5033EnzdhgbsNlzxt lower respiratory disease (20 sources)Dyspnea; Translations: [Other forms of dyspnea]31-42-5975Uuwssbdr Other nervous system disorders (20 sources)Disorder of brain; Translations: [Encephalopathy, unspecified]Onset: 394288-61-9914WmxgqtnCxdyu nervous system disorders (8 sources)Encephalopathy, unspecified; Translations: [Encephalopathy, unspecified]Onset: 347302-12-7735VwxlmahGbsny non-traumatic joint disorders (1 source)Pain in right hip joint; Translations: [Pain in right hip]Episodic Other nutritional; endocrine; and metabolic disorders (6 sources)Decreased body mass index; Translations: [Body mass index (BMI) 19.9 or less, adult]Onset: 342000-55-8270UtifqnonPudpe nutritional; endocrine; and metabolic disorders (2 sources)Body mass index (BMI) 19.9 or less, adult; Translations: [Body mass index (BMI) 19.9 or less, adult]Onset: 16-74-8837FbyzvwfpSjvh-; endo-; and myocarditis; cardiomyopathy (except that caused by tuberculosis or sexually transmitted disease) (20 sources)Cardiomyopathy; Translations: [Other primary cardiomyopathies]Onset: 823192-50-3492YdkuujzPixddwi on above:Echo: LVEF 45-50%, normal RV size/function, mild aortic root dilatation 4.0 cm - 02/2024MRI: cardiac sarcoidosis - 2015,LHC: normal coronary circulation - 2016,Pneumonia (except that caused by tuberculosis or sexually transmitted disease) (4 sources)Pneumonia, unspecified organism; Translations: [Infective pneumonia] Onset: 97-89-2519IwqjwpeoFkbkbwel codes; unclassified (8 sources)History finding; Translations: [Other specified conditions influencing health status]EpisodicResidual codes; unclassified (8 sources)History of clinical finding in subject; Translations: [Personal history of other specified diseases]EpisodicResidual codes; unclassified (8 sources)History of heartburn; Translations: [Personal history of other diseases of digestive system]EpisodicResidual codes; unclassified (6 sources)Localized edema; Translations: [Edema]Onset: EpisodicResidual codes; unclassified (20 sources)Edema of lower extremity; Translations: [Localized edema]02-29-2024 EpisodicResidual codes; unclassified (19 sources)Altered mental status; Translations: [Altered mental status, unspecified]69-52-4754QejisyfmUbpmachw codes; unclassified (4 sources)Chews tobacco ; Translations: [Tobacco use]Onset: 01-15-2025 10-20-5362YigyzkglTvssrfja codes; unclassified (2 sources)Tobacco use; Translations: [Tobacco use]Onset: 07-24-5090Dheemfkc Respiratory failure; insufficiency; arrest (adult) (20 sources)Chronic hypoxemic respiratory failure; Translations: [Chronic respiratory failure with hypoxia]Onset: 669169-49-6791LtjqvveBnjkyesexmg failure; insufficiency; arrest (adult) (2 sources)Acute respiratory failure; Translations: [Acute respiratory failure, unspecified whether with hypoxia or hypercapnia]29-69-4080KhjydkjgTnpifce detachments; defects; vascular occlusion; and retinopathy (1 source)Venous retinal branch occlusion; Translations: [Tributary (branch) retinal vein occlusion, right eye, stable]ChronicSpondylosis; intervertebral disc disorders; other back problems (12 sources)Lumbar spondylosis; Translations: [Spondylosis without myelopathy or radiculopathy, lumbar region]Onset: 43-93-5658PvsjvsmVcgwkygdx-related disorders (20 sources)Nicotine dependence, other tobacco product, uncomplicated; Translations: [Nicotine dependence, cigarettes, uncomplicated]Onset: 11-22-2021 Resolved: 911911-17-8666FqoblhdOnspqkhqfptm (2 sources)COUGH, UNSPECIFIED; Translations: [COUGH, UNSPECIFIED]Onset: 89-51-1168Phzraofugeun (1 source)CONTACT W/AND (SUSP) EXPOS COVID-19; Translations: [CONTACT W/AND (SUSP) EXPOS COVID-19]Onset: 74-41-0816Tquaeoovzocg (1 source)Long-term current use of steroid; Translations: [Long-term (current) use of steroids]Onset: 99-19-7730Dqrsfadlvbgi (1 source)Other certain sequelae of myocardial infarction, not elsewhere classified; Translations: [Other certain sequelae of myocardial infarction, not elsewhere classified]Onset: 35-57-5519Xlxcdawiyblm (14 sources)A [facility] screening has identified you as FRAIL or [...] Four Ways to Beat the Frailty Risk [email or web address]-[email or web address]-the-fra [id number] (12 sources)Follow-up with your Primary Care Provider, call office to reschedule if needed.Unclassified (7 sources)You have been scheduled for a follow up appointment for the following date and time, please call to reschedule if needed. Past or Other Problems Problem ClassificationProblemDateDocumented DateEpisodic/ChronicAcute posthemorrhagic anemia (1 source)Acute posthemorrhagic anemia; Translations: [Acute posthemorrhagic anemia]Onset: 49-59-6259EroxdkrgPawoogcybk associated with dizziness or vertigo (20 sources)Vertigo; Translations: [Dizziness and giddiness]Onset: 07-26-2023 07-05-8592VjrtflghR Codes: Fall (19 sources)Fall; Translations: [Unspecified fall, initial encounter]Onset: 621676-24-0224QmgkhiymUmwcliwnbp disorders (3 sources)Esophageal disorders; Translations: [Gastro-esophageal reflux disease with esophagitis, without bleeding]Onset: 18-23-5230Ptzthmc and fatigue (20 sources)Other fatigue; Translations: [Fatigue]Onset: EpisodicNonspecific chest pain (1 source)Chest pain, unspecified; Translations: [CHEST PAIN UNSPECIFIED]Onset: 87-09-3456BbrqypxoRhhuj acquired deformities (1 source)Acquired deformity of head; Translations: [Other acquired deformity of head] Resolved: 97-49-9584JwobnghfBwdjy aftercare (19 sources)Taking high risk medication; Translations: [Other buttermaker helper (current) drug therapy]Onset: 929207-29-3725HsbnrxkmOfelg connective tissue disease (3 sources)Other specified soft tissue disorders; Translations: [OTHER SPEC SOFT TISSUE DISORDERS]Onset: 05-22-8851CjamuojyNuvxs diseases of veins and lymphatics (1 source)Peripheral venous insufficiency; Translations: [Unspecified venous (peripheral) insufficiency]Onset: 20-89-0160MplprsmlStrwh fractures (5 sources)Wedge compression fracture of unspecified thoracic vertebra, initial encounter for closed fracture;Translations: [Closed fracture of dorsal [thoracic] vertebra without mention of spinal cord injury]Onset: 07-03-2024 78-21-9994QgwplncePqcly lower respiratory disease (3 sources)Hemoptysis; Translations: [Hemoptysis] Resolved: 573943-50-4867RnhbidquYtdka nervous system disorders (20 sources)Impairment of balance; Translations: [Abnormality of gait]Onset: 522572-18-6782NhcksimcYarux screening for suspected conditions (not mental disorders or infectious disease) (20 sources)Raised prostate specific antigen; Translations: [Elevated prostate specific antigen [PSA]]Onset: 85-03-1950MaxxexxkIkrox upper respiratory infections (1 source)Acute upper respiratory infection, unspecified; Translations: [ACUTE UP RESPIRATORY INFECTION UNS]Onset: 42-24-3935RucufaonCnavdemc codes; unclassified (20 sources)Body mass index 20-24 - normal; Translations: [Body Mass Index between 19-24, adult]Onset: 411414-83-4334RqhchuotQcyigagh codes; unclassified (1 source)Edema; Translations: [Edema]Onset: 95-93-7146SqfhigfcMoqlmilw codes; unclassified (9 sources)Altered mental status, unspecified; Translations: [Altered mental status]Onset: 265720-75-3455ObhphtmuBosofzui codes; unclassified (2 sources)Body mass index (BMI) 21.0-21.9, adult; Translations: [Body mass index (BMI) 21.0-21.9, adult]Onset: 82-45-2673HvymqtpkCkxgwciq codes; unclassified (2 sources)Body mass index (BMI) 20.0-20.9, adult; Translations: [Body mass index (BMI) 20.0-20.9, adult]Onset: 71-55-3547LajqwcpoMktvvvkhjser (1 source)COUGH, UNSPECIFIED; Translations: [COUGH, UNSPECIFIED]Onset: 38-23-7070Hfhdmehfgnil (1 source)Never smoked tobacco; Translations: [Never a smoker]Unclassified (15 sources)Onset: 10-13-2023 Resolved: 208139-31-4327Stgwcgc tract infections (20 sources)Urinary tract infectious disease; Translations: [Urinary tract infection, site not specified]Onset: 77-01-9932Gigmgwdp Results Test NameValueInterpretationReference RangeFacilityBasic Metabolic Panelon 88-19-9017Pwaex gap [Moles/Vol]11.1 mmol/LNormal6.0-15.0The [facility] Physician GroupComment on above:Performed By: #### BMP, CBC ####[place] [address] USACalcium [Mass/Vol]9.4 mg/dLNormal 8.6-10.3The [facility] Physician GroupComment on above:Performed By: #### BMP, CBC ####[place] [address] [place] Chloride [Moles/Vol]104 mmol/YItyuzg10-680Jhy [facility] Physician GroupComment on above:Performed By: #### BMP, CBC ####[place] [id number] USACO2 [Moles/Vol]26.3 mmol/LCdoyma84.0-31.0The [facility] Physician GroupComment on above:Performed By: #### BMP, CBC ####[place] [id number] [place] Creatinine [Mass/Vol]0.99 mg/dLNormal0.70-1.30The [facility] Comment on above:Performed By: #### BMP, CBC ####[place] [id number] USACreatinine Clr Calc Mieajmwn97.55 NormalThe [facility] Physician [facility] HospitalComment on above:Result Comment: PERFORMED BY: [facility] [address] [facility] CAMPUSMargeHEATHER VILLE [id number] PATHOLOGIST DATA ENTRY COORDINATOR REGGIE CASTANEDA M.D.Performed By: #### BMP, CBC ####[place] [id number] USAGFR/1.73 sq M.predicted MDRD (S/P/Bld) [Vol rate/Area]mL/min/{1.73_m2}NormalThe [facility] Physician GroupComment on above:Performed By: #### BMP, CBC ####[address] [address] USAGlucose [Mass/Vol]99 mg/rOTbfobv14-576Zrf [facility] Physician GroupComment on above:Result Comment: Random Glucose Reference Range is dependent on time and content of last meal. Glucose of more than 200 mg/dL in a nonstressed, ambulatory subject supports the diagnosis of Diabetes Mellitus. ADA recommended reference rangePerformed By: #### BMP, CBC ####[address] [address] USAPotassium [Moles/Vol] 4.4 mmol/LNormal3.5-5.1The [facility] Physician GroupComment on above:Performed By: #### BMP, CBC ####[place] [address] USASodium [Moles/Vol]137 mmol/PBmjobb299-589Lpj [facility] Physician GroupComment on above:Performed By: #### BMP, CBC ####[address] [address] USAUrea nitrogen [Mass/Vol]28 mg/dLHigh 7-25The [facility] Physician GroupComment on above:Performed By: #### BMP, CBC ####[place] [id number] [facility] Complete Blood Count Auto Diffon 96-10-2584Syaiubjen (Bld) [#/Vol]0.0 10*3/uL Normal0.0-0.2The [facility] Physician GroupComment on above:Result Comment: PERFORMED BY: [facility] [address] [facility] CAMPUSMargeHEATHER VILLE [id number] PATHOLOGIST DATA ENTRY COORDINATOR REGGIE CASTANEDA M.D.Performed By: #### BMP, CBC ####[place] [id number] USABasophils/100 WBC (Bld)0.1 %Normal.The [facility] Physician GroupComment on above:Performed By: #### BMP, CBC ####[address] Eosinophils (Bld) [#/Vol]0.0 10*3/uLNormal0.0-0.45The [facility]ician [facility] Comment on above:Performed By: #### BMP, CBC ####[place] [address] USAEosinophils/100 WBC (Bld)0.0 %Normal. The [facility] Physician GroupComment on above:Performed By: #### BMP, CBC ####[address] Erythrocyte distribution width (RBC) [Ratio]21.5 %High12.0-14.8The [facility] Physician GroupComment on above:Performed By: #### BMP, CBC ####[place] [address] USAHematocrit (Bld) [Volume fraction]29.4 %Low38.8-50.0The [facility] Physician GroupComment on above:Performed By: #### BMP, CBC ####[place] [address] USAHemoglobin (Bld) [Mass/Vol]9.6 g/dLLow13.0-17.0The [facility] Physician GroupComment on above:Performed By: #### BMP, CBC ####[place] [address] [place] Lymphocytes (Bld) [#/Vol]0.7 10*3/uLLow1.00-4.8The [facility] Comment on above:Performed By: #### BMP, CBC ####[place] [id number] USALymphocytes/100 WBC (Bld)5.1 %Normal. The [facility] Physician GroupComment on above:Performed By: #### BMP, CBC ####[place] [address] USAMCH (RBC) [Entitic mass]29.2 jsAcniea73.5-35.2The [facility] Physician GroupComment on above:Performed By: #### BMP, CBC ####[place] [address] USAMCV (RBC) [Entitic vol]89.5 kMZrrcpu84.5-101 The [facility] Physician GroupComment on above:Performed By: #### BMP, CBC ####[place] [address] USAMean Corpuscular HGB Conc32.7 g/lNGtzdzg81.5-35.6The [facility] Physician GroupComment on above:Performed By: #### BMP, CBC ####[place] [address] USAMonocytes (Bld) [#/Vol]0.5 10*3/uLNormal 0.0-0.8The [facility] Physician GroupComment on above:Performed By: #### BMP, CBC ####[place] [address] [place] Monocytes/100 WBC (Bld)3.4 %Normal.The [facility] Physician GroupComment on above:Performed By: #### BMP, CBC ####[place] [address] USANeutrophils (Bld) [#/Vol]13.5 10*3/uLHigh1.8-7.7The [facility] Physician GroupComment on above:Performed By: #### BMP, CBC ####[place] [address] [place] Neutrophils/100 WBC (Bld)91.4 %Normal.The [facility] Physician GroupComment on above:Performed By: #### BMP, CBC ####[place] [address] USANRBC%0.0 /100{WBC}Normal0-0.5The [facility] Physician GroupComment on above:Performed By: #### BMP, CBC ####[place] [address] USAPlatelet mean volume (Bld) [Entitic vol]7.9 fLNormal6.6-10.1The [facility] Physician GroupComment on above: Performed By: #### BMP, CBC ####[place] [address] USAPlatelets (Bld) [#/Vol]400 10*3/dVGvyzyb528-273Fpr [facility] Physician GroupComment on above:Performed By: #### BMP, CBC ####[place] [address] USARBC (Bld) [#/Vol]3.28 10*6/uLLow3.90-5.60The [facility] Physician GroupComment on above:Performed By: #### BMP, CBC ####[place] [address] USAWBC (Bld) [#/Vol]14.8 10*3/uLHigh4.1-10.5The [facility] Physician GroupComment on above:Performed By: #### BMP, CBC ####[place] [address] USAWhite Blood Count14.8 [CFU]/mLHigh4.1-10.5The [facility] Physician GroupComment on above:Performed By: #### BMP, CBC ####[place] [address] USAComplete Blood Count Auto Diffon 65-02-3747Nluthargp (Bld) [#/Vol]0.0 10*3/uLNormal0.0-0.2The [facility] Physician GroupComment on above:Result Comment: PERFORMED BY: [place] [address] PATHOLOGIST DATA ENTRY COORDINATOR REGGIE CASTANEDA M.D.Performed By: #### BMP #### [place] [address] USABasophils/100 WBC (Bld)0.1 %Normal.The [facility] Physician GroupComment on above:Performed By: #### BMP #### [place] [address] USAEosinophils (Bld) [#/Vol]0.0 10*3/uLNormal0.0-0.45The [facility] Physician GroupComment on above:Performed By: #### BMP #### [place] [address] USAEosinophils/100 WBC (Bld)0.0 %Normal.The [facility] Physician GroupComment on above:Performed By: #### BMP #### [place] [address] USAErythrocyte distribution width (RBC) [Ratio]21.0 %High 12.0-14.8The [facility] Physician GroupComment on above:Performed By: #### BMP #### [place] [address] USAHematocrit (Bld) [Volume fraction]28.6 %Low38.8-50.0The [facility] Physician GroupComment on above:Performed By: #### BMP #### [place] [address] USAHemoglobin (Bld) [Mass/Vol]9.3 g/dLLow13.0-17.0The [facility] Physician GroupComment on above:Performed By: #### BMP #### [place] [address] USALymphocytes (Bld) [#/Vol]0.7 10*3/uLLow1.00-4.8The [facility] Physician GroupComment on above:Performed By: #### BMP #### [place] [address] USALymphocytes/100 WBC (Bld)5.0 %Normal.The [facility] Physician GroupComment on above:Performed By: #### BMP #### [place] [address] USAMCH (RBC) [Entitic mass]29.0 dwWdtvzn24.5-35.2The [facility] Physician GroupComment on above:Performed By: #### BMP #### [place] [address] USAMCV (RBC) [Entitic vol]88.8 mOYeiuvo76.5-101The [facility] Physician GroupComment on above:Performed By: #### BMP #### [place] [address] USAMean Corpuscular HGB Conc32.7 g/uJNpdail70.5-35.6The [facility] Physician GroupComment on above:Performed By: #### BMP #### [place] [address] USAMonocytes (Bld) [#/Vol]0.5 10*3/uLNormal0.0-0.8The [facility] Physician GroupComment on above:Performed By: #### BMP #### [place] [address] USAMonocytes/100 WBC (Bld)3.6 %Normal.The [facility] Physician GroupComment on above:Performed By: #### BMP #### [place] [address] USANeutrophils (Bld) [#/Vol]12.8 10*3/uLHigh1.8-7.7The [facility] Physician GroupComment on above:Performed By: #### BMP #### [place] [address] USANeutrophils/100 WBC (Bld)91.3 %Normal.The [facility] Physician GroupComment on above:Performed By: #### BMP #### [place] [address] USANRBC%0.0 /100{WBC}Normal0-0.5The [facility] Comment on above:Performed By: #### BMP #### [place] [address] USAPlatelet mean volume (Bld) [Entitic vol]7.8 fLNormal 6.6-10.1The [facility] Physician GroupComment on above:Performed By: #### BMP #### [place] [address] USAPlatelets (Bld) [#/Vol]385 10*3/xKUsqfoq752-758Zru [facility] Physician GroupComment on above:Performed By: #### BMP #### [place] [address] USARBC (Bld) [#/Vol]3.22 10*6/uLLow3.90-5.60The [facility] Physician GroupComment on above:Performed By: #### BMP #### [place] [address] USAWBC (Bld) [#/Vol]14.0 10*3/uLHigh4.1-10.5The [facility] Physician GroupComment on above:Performed By: #### BMP #### [place] [address] USAWhite Blood Count14.0 [CFU]/mLHigh4.1-10.5The [facility] Physician GroupComment on above:Performed By: #### BMP #### [place] [address] USAComprehensive Metabolic Panelon 98-05-1605Lurvbof [Mass/Vol]3.4 g/dLLow3.5-5.7The [facility] Physician GroupComment on above: Performed By: #### BMP #### [place] [address] USAAlbumin/Globulin [Mass ratio]1.3 {ratio}NormalThe [facility] Physician GroupComment on above:Performed By: #### BMP #### [place] [address] USAALP [Catalytic activity/Vol]106 U/HAiso56-283Zie [facility] Physician GroupComment on above:Performed By: #### BMP #### [place] [address] USAALT [Catalytic activity/Vol]7 U/LNormal7-52The [facility] Physician GroupComment on above:Performed By: #### BMP #### [place] [address] USAAnion gap [Moles/Vol]11.0 mmol/LNormal6.0-15.0The [facility] Physician GroupComment on above:Performed By: #### BMP #### [place] [address] USAAST [Catalytic activity/Vol]14 U/SBazbvm42-82Pmu [facility] Physician GroupComment on above:Performed By: #### BMP #### [place] [address] USABilirubin [Mass/Vol]0.3 mg/dLNormal0.3-1.0The [facility] Physician GroupComment on above:Performed By: #### BMP #### [place] [address] USACalcium [Mass/Vol]8.9 mg/dLNormal8.6-10.3The [facility] Physician GroupComment on above:Performed By: #### BMP #### [place] [address] USAChloride [Moles/Vol]104 mmol/WYyoaoy02-380Pdt [facility] Physician GroupComment on above:Performed By: #### BMP #### [place] [address] USACO2 [Moles/Vol]25.0 mmol/XJnfzbv70.0-31.0The [facility] Physician GroupComment on above:Performed By: #### BMP #### [place] [address] USACreatinine [Mass/Vol]1.01 mg/dLNormal0.70-1.30The [facility] Physician GroupComment on above:Performed By: #### BMP #### [place] [address] USACreatinine Clr Calc Dplawuhi32.41NormalThe [facility] Physician GroupComment on above:Performed By: #### BMP #### [place] [address] USAGFR/1.73 sq M.predicted MDRD (S/P/Bld) [Vol rate/Area] mL/min/{1.73_m2}NormalThe [facility] Physician GroupComment on above:Performed By: #### BMP #### [place] [address] USAGlobulin (S) [Mass/Vol]2.7 g/dLNormalThe [facility] Physician GroupComment on above:Performed By: #### BMP #### [place] [address] USAGlucose [Mass/Vol]153 mg/gJErdf77-104Wac [facility] Physician GroupComment on above:Result Comment: Random Glucose Reference Range is dependent on time and content of last meal. Glucose of more than 200 mg/dL in a nonstressed, ambulatory subject supports the diagnosis of Diabetes Mellitus. ADA recommended reference rangePerformed By: #### BMP #### [place] [address] USAPotassium [Moles/Vol]4.0 mmol/LNormal3.5-5.1The [facility] Physician GroupComment on above:Performed By: #### BMP #### [place] [address] USAProtein [Mass/Vol]6.1 g/dLLow6.4-8.9The [facility] Physician GroupComment on above:Performed By: #### BMP #### [place] [address] USASodium [Moles/Vol]136 mmol/VWwddss402-239Zfa [facility] Physician GroupComment on above:Performed By: #### BMP #### [place] [address] USAUrea nitrogen [Mass/Vol]25 mg/dLNormal7-25The [facility] Physician GroupComment on above:Performed By: #### BMP #### [place] [address] USAGram Stainon 89-94-1297Lmelmevufgx observation Gram stain Nom (Unsp spec)Gram Stain Result No White Blood Cells Seen 1+ Epithelial Cells 2+ Gram Positive Cocci in Chains 2+ Gram Positive Cocci Rare Gram Negative Bacilli Rare Yeast Like Elements Sputum screening indicates excessive oral contamination and mandates specimen rejection for bacterial culture. @Called CHAPITO CHOI/3T @at 0428 on 02/17/25 @by Fiona Sanchez to request new sample. @ PLEASE ADD MARKER STACEY.SPIT PERFORMED BY: [place] [address] PATHOLOGIST DATA ENTRY COORDINATOR REGGIE CASTANEDA M.D.NormalThe [facility] Physician GroupComment on above: Performed By: #### GS ####[facility] [place] [address] USAMagnesiumon 11-75-3792Ytlkwewsy [Mass/Vol]1.9 mg/dL Normal1.9-2.7The [facility] Physician GroupComment on above:Result Comment: PERFORMED BY: [place] [address] PATHOLOGIST DATA ENTRY COORDINATOR REGGIE CASTANEDA M.D.Performed By: #### BMP #### [place] [address] USAComplete Blood Count Auto Diffon 84-62-4699Qlsijujzj (Bld) [#/Vol]0.0 10*3/uLNormal0.0-0.2The [facility] Physician GroupComment on above: Result Comment: PERFORMED BY: [place] [address] PATHOLOGIST DATA ENTRY COORDINATOR REGGIE CASTANEDA M.D.Performed By: #### BMP #### [place] [address] USABasophils/100 WBC (Bld)0.2 %Normal.The [facility] Physician GroupComment on above:Performed By: #### BMP #### [place] [address] USAEosinophils (Bld) [#/Vol]0.0 10*3/uLNormal0.0-0.45The [facility] Physician GroupComment on above:Performed By: #### BMP #### [place] [address] USAEosinophils/100 WBC (Bld)0.0 %Normal.The [facility] Physician GroupComment on above:Performed By: #### BMP #### [facility] [address] [place] [address] USAErythrocyte distribution width (RBC) [Ratio]21.0 %High 12.0-14.8The [facility] Physician GroupComment on above:Performed By: #### BMP #### [facility] [address] [place] [address] USAHematocrit (Bld) [Volume fraction]32.2 %Low38.8-50.0The [facility] Physician GroupComment on above:Performed By: #### BMP #### [place] [address] USAHemoglobin (Bld) [Mass/Vol]10.7 g/dLLow13.0-17.0The [facility] Physician GroupComment on above:Performed By: #### BMP #### [place] [address] USALymphocytes (Bld) [#/Vol]0.5 10*3/uLLow1.00-4.8The [facility] Physician GroupComment on above:Performed By: #### BMP #### [place] [address] USALymphocytes/100 WBC (Bld)11.1 %Normal.The [facility] Physician GroupComment on above:Performed By: #### BMP #### [place] [address] USAMCH (RBC) [Entitic mass]29.6 ahXsxkyg10.5-35.2The [facility] Physician GroupComment on above:Performed By: #### BMP #### [place] [address] USAMCV (RBC) [Entitic vol]88.9 bKYwnout85.5-101The [facility] Physician GroupComment on above:Performed By: #### BMP #### [place] [address] USAMean Corpuscular HGB Conc33.3 g/nJPrebge88.5-35.6The [facility] Physician GroupComment on above:Performed By: #### BMP #### [facility] [address] [place] [address] USAMonocytes (Bld) [#/Vol]0.0 10*3/uLNormal0.0-0.8The [facility] Physician GroupComment on above:Performed By: #### BMP #### [facility] [address] [place] [address] USAMonocytes/100 WBC (Bld)1.0 %Normal.The [facility] Physician GroupComment on above:Performed By: #### BMP #### [facility] [address] [place] [address] USANeutrophils (Bld) [#/Vol]4.1 10*3/uLNormal1.8-7.7The [facility] Physician GroupComment on above:Performed By: #### BMP #### [facility] [address] [place] [address] USANeutrophils/100 WBC (Bld)87.7 %Normal.The [facility] Physician GroupComment on above:Performed By: #### BMP #### [facility] [address] [place] [address] USANRBC%0.0 /100{WBC}Normal0-0.5The [facility] Comment on above:Performed By: #### BMP #### [facility] [address] [place] [address] USAPlatelet mean volume (Bld) [Entitic vol]7.5 fLNormal 6.6-10.1The [facility] Physician GroupComment on above:Performed By: #### BMP #### [facility] [address] [place] [address] USAPlatelets (Bld) [#/Vol]361 10*3/cRLrdwjy656-934Gzj [facility] Physician GroupComment on above:Performed By: #### BMP #### [facility] [address] [place] [address] USARBC (Bld) [#/Vol]3.62 10*6/uLLow3.90-5.60The [facility] Physician GroupComment on above:Performed By: #### BMP #### [facility] [address] [place] [address] USAWBC (Bld) [#/Vol]4.7 10*3/uLNormal4.1-10.5The [facility] Physician GroupComment on above:Performed By: #### BMP #### [facility] [address] [place] [address] USAWhite Blood Count4.7 [CFU]/mLNormal4.1-10.5The [facility] Physician GroupComment on above:Performed By: #### BMP #### [place] [address] USAComprehensive Metabolic Panelon 31-87-9652Ijdqivf [Mass/Vol]3.5 g/dLNormal3.5-5.7The [facility] Physician GroupComment on above: Performed By: #### BMP #### [place] [address] USAAlbumin/Globulin [Mass ratio]1.1 {ratio}NormalThe [facility] Physician GroupComment on above:Performed By: #### BMP #### [place] [address] USAALP [Catalytic activity/Vol]133 U/MJoab76-070Czs [facility] Physician GroupComment on above:Performed By: #### BMP #### [place] [address] USAALT [Catalytic activity/Vol]9 U/LNormal7-52The [facility] Physician GroupComment on above:Performed By: #### BMP #### [facility] [address] [place] [address] USAAnion gap [Moles/Vol]11.0 mmol/LNormal6.0-15.0The [facility] Physician GroupComment on above:Performed By: #### BMP #### [place] [address] USAAST [Catalytic activity/Vol]17 U/MNmaenh61-70Nue [facility] Physician GroupComment on above:Performed By: #### BMP #### [address] [place] [address] USABilirubin [Mass/Vol]0.3 mg/dLNormal0.3-1.0The [facility] Physician GroupComment on above:Performed By: #### BMP #### [place] [address] USACalcium [Mass/Vol]8.9 mg/dLNormal8.6-10.3The [facility] Physician GroupComment on above:Performed By: #### BMP #### [place] [address] USAChloride [Moles/Vol]103 mmol/GIhupio95-399Gjg [facility] Physician GroupComment on above:Performed By: #### BMP #### [place] [address] USACO2 [Moles/Vol]26.1 mmol/WQxjqbf62.0-31.0The [facility] Physician GroupComment on above:Performed By: #### BMP #### [place] [address] USACreatinine [Mass/Vol]1.02 mg/dLNormal0.70-1.30The [facility] Physician GroupComment on above:Performed By: #### BMP #### [place] [address] USACreatinine Clr Calc Squbxasd77.66NormalThe [facility] Physician GroupComment on above:Performed By: #### BMP #### [place] [address] USAGFR/1.73 sq M.predicted MDRD (S/P/Bld) [Vol rate/Area] mL/min/{1.73_m2}NormalThe [facility] Physician GroupComment on above:Performed By: #### BMP #### [place] [address] USAGlobulin (S) [Mass/Vol]3.1 g/dLNormalThe [facility] Physician GroupComment on above:Performed By: #### BMP #### [place] [address] USAGlucose [Mass/Vol]179 mg/xEVvlj74-137Spr [facility] Physician GroupComment on above:Result Comment: Random Glucose Reference Range is dependent on time and content of last meal. Glucose of more than 200 mg/dL in a nonstressed, ambulatory subject supports the diagnosis of Diabetes Mellitus. ADA recommended reference rangePerformed By: #### BMP #### [place] [address] USAPotassium [Moles/Vol]4.1 mmol/LNormal3.5-5.1The [facility] Physician GroupComment on above:Performed By: #### BMP #### [place] [address] USAProtein [Mass/Vol]6.6 g/dLNormal6.4-8.9The [facility] Physician GroupComment on above:Performed By: #### BMP #### [place] [address] USASodium [Moles/Vol]136 mmol/UMvhdtg845-915Fge [facility] Physician GroupComment on above:Performed By: #### BMP #### [place] [address] USAUrea nitrogen [Mass/Vol]17 mg/dLNormal7-25The [facility] Physician GroupComment on above:Performed By: #### BMP #### [place] [address] USAMagnesiumon 54-22-7195Krypnvooz [Mass/Vol]1.9 mg/dLNormal 1.9-2.7The [facility] Physician GroupComment on above:Result Comment: PERFORMED BY: [place] [address] PATHOLOGIST DATA ENTRY COORDINATOR REGGIE CASTANEDA M.D.Performed By: #### BMP #### [place] [address] USAXR chest 2V*on 82-14-2788GR chest 2V*[facility] [place] [address] [place] [address] XRay Report Signed Patient: Mary Mcadams MR#: [id number] : 1955 Acct:[id number] Age/Sex: 69 / M ADM Date: 02/16/25 Loc: Room: [address] [place] [address] Type: ADM IN Attending Dr: Jose Padilla MD Copies to: MD Cee Ruby DO Ordering Provider: Cee Proctor DO Date of Service: 02/15/25 XR/XR chest 2V*: Shortness of Breath/Dyspnea Chest 2 views CLINICAL HISTORY: Shortness of breath with exertion. COMPARISON: Chest 01/04/2025 FINDINGS: Heart appears unchanged in size. Evidence old granulomatous disease. Bilateral pleural-parenchymal changes are unchanged. No free air. XR/XR chest 2V* IMPRESSION: NO SIGNIFICANT CHANGE IN CHEST FINDINGS. Impression dictated by: Hasmukh Clifford Jr., D.O. 02/16/2025 11:06 AM Dictation Location: [facility]18 Transcribed By: [facility] 02/16/25 1106 Dictated By: Hasmukh Clifford Jr, DO 02/16/25 1105 Signed By: 02/16/25 1106[facility] Physician GroupAlanine aminotransferase [Enzymatic activity/volume] in Serum or PlasmaOrdered By: Cee Proctor on 46-96-1797AEI [Catalytic activity/Vol]11 U/LNormal7-52[facility] Medical CenterComment on above:Performed By: #### CMP, CBC #### [facility] [address] [place] [address] USAAlbumin [Mass/volume] in Serum or Plasma by Bromocresol green (BCG) dye binding methoOrdered By: Cee Proctor on 51-52-7442Rokyeul BCG dye [Mass/Vol]3.8 g/dL3.5-5.7FUniversity Hospitals Geauga Medical CenterAlkaline phosphatase [Enzymatic activity/volume] in Serum or PlasmaOrdered By: Cee Proctor on 55-08-2422DIA [Catalytic activity/Vol]146 U/XEhzd39-978EwuqtxrooKettering Health Behavioral Medical CenterComment on above:Performed By: #### CMP, CBC #### [facility] [address] [place] [address] USAAspartate aminotransferase [Enzymatic activity/volume] in Serum or PlasmaOrdered By: Cee Proctor on 54-24-0907TAD [Catalytic activity/Vol]25 U/XKfthel00-28RhhxvbckqKettering Health Behavioral Medical CenterComment on above: Performed By: #### CMP, CBC #### [place] [address] USABNP ser/plasOrdered By: Cee Proctor on 02-15-2025 Natriuretic peptide B (Bld) [Mass/Vol]57.0 pg/mLNormal5-100[facility] Medical CenterComment on above:Result Comment: PERFORMED BY: [place] [address] PATHOLOGIST DATA ENTRY COORDINATOR REGGIE CASTANEDA M.D.Performed By: #### CMP, CBC #### [place] [address] USABasophils [#/volume] in Blood by Automated countOrdered By: Cee Proctor on 93-12-1943Pshxfeofx (Bld) [#/Vol]0.1 10*3/uLNormal0.0-0.2 [facility] Medical CenterComment on above:Result Comment: PERFORMED BY: [place] [address] PATHOLOGIST DATA ENTRY COORDINATOR REGGIE CASTANEDA M.D.Performed By: #### CMP, CBC #### [place] [address] USABasophils/100 leukocytes in Blood by Automated count Ordered By: Cee Proctor on 27-29-3965Vjacpnmaq/100 WBC (Bld)1.0 %Normal. [facility] Medical CenterComment on above:Performed By: #### CMP, CBC #### [place] [address] USABilirubin.total [Mass/volume] in Serum or PlasmaOrdered By: Cee Proctor on 85-13-6239Rzvpgtsud [Mass/Vol]0.5 mg/dLNormal0.3-1.0 [facility] Medical CenterComment on above:Performed By: #### CMP, CBC #### [facility] [address] [place] [id number] USACOVID Cepheid NegativeOrdered By: Cee Proctor on 80-39-4164LSYC-CoV-2 (COVID-19) Ab IA QlNegativeNegativeKettering Health Behavioral Medical CenterComment on above:This is a duplicate Cepheid Xpert Xpress CoV- 2/Flu/RSV Plus RNA by RT-PCR result to be used for statistical tracking purpose only.COVID-19 / Flu A/B / RSV PCRon 65-47-3973VHMG-CoV-2 (COVID-19) RNA HOWIE+probe Ql (Unsp spec)COVID-19 Cepheid Result Negative for SARS-CoV-2 RNA by RT-PCR Flu A Cepheid Result Negative for Flu A RNA by RT-PCR Flu B Cepheid Result Negative for Flu B RNA by RT-PCR RSV Cepheid Result Negative for RSV RNA by RT-PCR COVID19 Blank Space Reference: Negative COVID19 Blank Space Cepheid Disclaimer The Cepheid Xpert Xpress CoV-2/Flu/RSV Plus has Cepheid Disclaimer not been FDA cleared or approved; this test has Cepheid Disclaimer been authorized by FDA under an EUA for use by Cepheid Disclaimer authorized laboratories; this test has been Cepheid Disclaimer authorized only for the simultaneous qualitative Cepheid Disclaimer detection and differentiation of nucleic acids from Cepheid Disclaimer SARS-CoV-2, influenza A, influenza B, and Cepheid Disclaimer respiratory syncytial virus (RSV), and not for any Cepheid Disclaimer other viruses or pathogens; and this test is only Cepheid Disclaimer authorized for the duration of the declaration that Cepheid Disclaimer circumstances exist justifying the authorization of Cepheid Disclaimer emergency use of in vitro diagnostic tests for Cepheid Disclaimer detection and/or diagnosis of COVID-19 under Cepheid Disclaimer Section 564(b)(1) of the Act, 21 U.S.C. 360bbb- Cepheid Disclaimer 3(b)(1), unless the authorization is terminated or Cepheid Disclaimer revoked sooner. PERFORMED BY: [place] [id number] PATHOLOGIST DATA ENTRY COORDINATOR REGGIE CASTANEDA M.D.NormalThe [facility] Physician GroupComment on above: Performed By: #### BMP #### [place] [id number] USACalcium [Mass/volume] in Serum or PlasmaOrdered By: Cee Proctor on 26-74-3111Cfytfbz [Mass/Vol]9.5 mg/dLNormal8.6-10.3FUniversity Hospitals Geauga Medical CenterComment on above:Performed By: #### CMP, CBC #### [place] [id number] USACarbon dioxide, total [Moles/volume] in Serum or Plasma Ordered By: Cee Proctor on 74-03-2333MA4 [Moles/Vol]27.4 mmol/YSlramu13.0-31.0 [facility] Medical CenterComment on above:Performed By: #### CMP, CBC #### [address] [address] USACepheid COVID PCR Negativeon 42-50-0386YRSX-CoV-2 (COVID- 19) RNA HOWIE+probe Ql (Unsp spec)NegativeNormalNegativeThe [facility] Physician GroupComment on above:Result Comment: This is a duplicate Cepheid Xpert Xpress CoV-2/Flu/RSV Plus RNA by RT-PCR result to be used for statistical tracking purpose only. PERFORMED BY: [address] [address] PATHOLOGIST DATA ENTRY COORDINATOR REGGIE CASTANEDA M.D.Performed By: #### BMP #### [place] [address] USAChloride [Moles/volume] in Serum or PlasmaOrdered By: Cee Proctor on 25-03-1296Bpvrtutq [Moles/Vol]101 mmol/BVryjch07-937XsmhskvbjKettering Health Behavioral Medical CenterComment on above:Performed By: #### CMP, CBC #### [place] [address] USAComplete Blood Count Auto Diffon 29-21-3618Uaqb Corpuscular HGB Conc33.5 g/kVOcuxcv91.5-35.6The [facility] Physician GroupComment on above:Performed By: #### CMP, CBC #### [place] [address] USAMonocytes/100 WBC (Bld)20.43 %High0.00-20.00The [facility] Physician GroupComment on above:Result Comment: For adults in ED, MDW > 20.0 may be associated with a higher risk of sepsis during the first 12 hrs of hospital admissionPerformed By: #### CMP, CBC #### [place] [address] USANRBC%0.0 /100{WBC}Normal0-0.5The [facility] Comment on above:Performed By: #### CMP, CBC #### [place] [address] USAWhite Blood Count6.3 [CFU]/mLNormal4.1-10.5The [facility] Physician GroupComment on above:Performed By: #### CMP, CBC #### [place] [address] USAComprehensive Metabolic Panelon 17-65-5501Yowdzxj [Mass/Vol]3.8 g/dLNormal3.5-5.7The [facility] Physician GroupComment on above: Performed By: #### CMP, CBC #### [place] [address] USACreatinine Clr Calc Soigxogu76.57NoWakeMed Cary Hospital Physician GroupComment on above:Result Comment: PERFORMED BY: [place] [address] PATHOLOGIST DATA ENTRY COORDINATOR REGGIE CASTANEDA M.D.Performed By: #### CMP, CBC #### [facility] [address] [place] [address] USAGFR/1.73 sq M.predicted MDRD (S/P/Bld) [Vol rate/Area] mL/min/{1.73_m2}NormalThe [facility] Physician GroupComment on above:Performed By: #### CMP, CBC #### [facility] [address] [place], [place] [address] USACreatinine [Mass/volume] in Serum or PlasmaOrdered By: Cee Proctor on 52-10-8026Ibcwhaiymr [Mass/Vol]1.14 mg/dLNormal0.70-1.30 [facility] CenterComment on above:Performed By: #### CMP, CBC #### [facility] [address] [place] [address] USAECG 12 lead ECGon 18-71-2443LVI 12 lead ECGPARKVIEW [facility] [place] [address] [place], [place] [id number] Electrocardiograph Report Signed Patient: Mary Mcadams MR#: [id number] : 1955 Acct:[id number] Age/Sex: 69 / M ADM Date: 02/15/25 Loc: ER Room: Type: [facility] ER Attending Dr: Ordering Provider: Cee Proctor DO Date of Service: 02/15/2509/06/2117 ECG/ECG 12 lead ECG: Shortness of Breath/Dyspnea Copies to: Test Reason : Blood Pressure : */* mmHG Vent. Rate : 92 BPM Atrial Rate : 92 BPM P-R Int : 188 ms QRS Dur : 126 ms QT Int : 394 ms P-R-T Axes : 56 -36 82 degrees QTcB Int : 487 ms Sinus rhythm with premature atrial complexes Left axis deviation Left bundle branch block Abnormal ECG When compared with ECG of 09-Jan-2025 07:57, premature atrial complexes are now present Left bundle branch block is now present Confirmed by Cee Proctor ([id number]) on 02/16/2025 2:48:56 AM Referred By: Electronically Signed By: Cee Proctor Transcribed By: MUS Signed By Cee Proctor DO 02/16 [address] Physician GroupEosinophils [#/volume] in Blood by Automated countOrdered By: Cee Proctor on 11-98-0273Tvpszeptliq (Bld) [#/Vol] 0.2 10*3/uLNormal0.0-0.45[facility] CenterComment on above: Performed By: #### CMP, CBC #### [place] [address] USAEosinophils/100 leukocytes in Blood by Automated count Ordered By: Cee Proctor on 58-64-6752Oajjugfzfin/100 WBC (Bld)2.7 %Normal. [facility] Medical CenterComment on above:Performed By: #### CMP, CBC #### [facility] [address] [place] [address] USAErythrocyte distribution width [Ratio] by Automated count Ordered By: Cee Proctor on 39-73-8897Gycrktlxmrb distribution width (RBC) [Ratio]20.9 %High12.0-14.8[facility] Medical CenterComment on above: Performed By: #### CMP, CBC #### [facility] [address] [place] [address] USAErythrocytes [#/volume] in Blood by Automated countOrdered By: Cee Proctor on 20-82-9842VXP (Bld) [#/Vol]3.87 10*6/uLLow3.90-5.60 [facility] CenterComment on above:Performed By: #### CMP, CBC #### [facility] [address] [place] [address] USAGlomerular filtration rate [Volume Rate/Area] in Serum, Plasma or Blood by CreatinineOrdered By: Cee Proctor on 24-53-2505Ioueqfavwh filtration rate [Volume Rate/Area] in Serum, Plasma or Blood by Creatinine> 60.0 mL/MinKettering Health Behavioral Medical CenterGlucose [Mass/volume] in Serum or Plasma Ordered By: Cee Proctor on 29-68-6623Cbbxyps [Mass/Vol]99 mg/vKAixotu12-907 [facility] CenterComment on above:ADA recommended reference rangeRandom Glucose Reference Range is dependent on time and content of last meal. Glucose of more than 200 mg/dL in a nonstressed, ambulatory subject supports the diagnosisof Diabetes Mellitus.Result Comment: Random Glucose Reference Range is dependent on time and content of last meal. Glucose of more than 200 mg/dL in a nonstressed, ambulatory subject supports the diagnosis of Diabetes Mellitus. ADA recommended reference rangePerformed By: #### CMP, CBC #### [facility] [address] [place], [place] [address] USAHematocrit [Volume Fraction] of Blood by Automated count Ordered By: Cee Proctor on 11-77-7513Tptntvpyxe (Bld) [Volume fraction]34.3 % Low38.8-50.0[facility] Medical CenterComment on above:Performed By: #### CMP, CBC #### [facility] [address] [place] [address] USAHemoglobin [Mass/volume] in BloodOrdered By: Cee Proctor on 50-20-9102Ahkxljmsco (Bld) [Mass/Vol]11.5 g/dLLow13.0-17.0[facility] Medical CenterComment on above:Performed By: #### CMP, CBC #### [place] [id number] USAINR in Platelet poor plasma by Coagulation assayOrdered By: Cee Proctor on 96-14-2578ONW Coag (PPP) [Relative time]2.0 {INR}Normal [facility] Medical CenterComment on above:INR Therapeutic Range A) Pre- and Peroperative OAT started two weeks before surgery. NOT HIP SURGERY: 1.5 - 2.5 HIP SURGERY: 2 - 3B) Primary and secondary prevention of venous THROMBOSIS: 2 - 3C) Active venous thrombosis, pulmonary embolismand prevention of recurrent venous thrombosis: 2 - 3D) Prevention of arterial thromboembolismincluding patients with mechanical heart valves: 3 - 4.5Result Comment: INR Therapeutic Range A) Pre- and [...] with mechanical heart valves: 3 - 4.5 PERFORMED BY: [place] [address] PATHOLOGIST DATA ENTRY COORDINATOR REGGIE CASTANEDA M.D.Performed By: #### CMP, CBC #### [place] [address] USALeukocytes [#/volume] corrected for nucleated erythrocytes in Blood by Automated counOrdered By: Cee Proctor on 98-37-6490NOQ corrected for nucl RBC Auto (Bld) [#/Vol]6.3 10*3/uL4.1-10.5FUniversity Hospitals Geauga Medical CenterLeukocytes [#/volume] in Blood by Automated countOrdered By: Cee Proctor on 15-10-9125MZY (Bld) [#/Vol]6.3 10*3/uLNormal4.1-10.5FUniversity Hospitals Geauga Medical CenterComment on above:Performed By: #### CMP, CBC #### [facility] [address] [place] [address] USALymphocytes [#/volume] in Blood by Automated countOrdered By: Cee Proctor on 51-03-5264Gjwdvnufgbe (Bld) [#/Vol]1.2 10*3/uLNormal 1.00-4.8[facility] CenterComment on above:Performed By: #### CMP, CBC #### [place] [address] USALymphocytes/100 leukocytes in Blood by Automated count Ordered By: Cee Proctor on 84-22-9791Mxucitghubj/100 WBC (Bld)18.5 %Normal. [facility] Medical CenterComment on above:Performed By: #### CMP, CBC #### [facility] [address] [place] [address] USAH [Entitic mass] by Automated countOrdered By: Cee Proctor on 61-62-7313ZMX (RBC) [Entitic mass]29.8 rrZuffcs34.5-35.2FUniversity Hospitals Geauga Medical CenterComment on above:Performed By: #### CMP, CBC #### [facility] [address] StreetHC Auto (RBC) [Mass/Vol]Ordered By: Cee Proctor on 60-13-5206ZMSX (RBC) [Mass/Vol]33.5 g/dL32.5-35.6FUniversity Hospitals Geauga Medical CenterMCV [Entitic volume] by Automated countOrdered By: Cee Proctor on 73-72-4106TYC (RBC) [Entitic vol]88.7 lOEdfluy43.5-101[facility] CenterComment on above:Performed By: #### CMP, CBC #### [facility] [address] [place] [address] USAMonocyte distribution width [Entitic volume] in Blood by AutomatedOrdered By: Cee Proctor on 93-81-7886Tobfwmht distribution width Auto (Bld) [Entitic vol]20.43 %High0.00-20.00[facility] CenterComment on above:For adults in ED, MDW > 20.0 may be associated with a higher risk of sepsis during the first 12 hrs of hospital admissionMonocytes [#/volume] in Blood by Automated countOrdered By: Cee Proctor on 27-28-0278Nqmfqygdg (Bld) [#/Vol]0.7 10*3/uLNormal0.0-0.8[facility] CenterComment on above:Performed By: #### CMP, CBC #### [facility] [address] [place], [place] [address] USAMonocytes/100 leukocytes in Blood by Automated count Ordered By: Cee Proctor on 83-82-8989Griiuuouy/100 WBC (Bld)10.6 %Normal. [facility] Medical CenterComment on above:Performed By: #### CMP, CBC #### [facility] [address] [place] [address] USANeutrophils [#/volume] in Blood by Automated countOrdered By: Cee Proctor on 18-45-7967Hohxoxsdavd (Bld) [#/Vol]4.3 10*3/uLNormal1.8-7.7 [facility] CenterComment on above:Performed By: #### CMP, CBC #### [facility] [address] [place] [address] USANeutrophils/100 leukocytes in Blood by Automated count Ordered By: Cee Proctor on 13-23-4376Nxiljndupau/100 WBC (Bld)67.2 %Normal. [facility] CenterComment on above:Performed By: #### CMP, CBC #### [facility] [address] [place] [address] USANo Panel InformationOrdered By: Cee Proctor on 87-17-2980Wsmzypen Creatinine Clearance (Chem50.57[facility] Medical CenterNucleated erythrocytes [Presence] in Blood by Automated countOrdered By: Cee Proctor on 87-49-1519Ztpfqngqe RBC Auto Ql (Bld)0.0 /100{WBC}0-0.5 [facility] Medical CenterPlatelet mean volume [Entitic volume] in Blood by Automated countOrdered By: Cee Proctor on 74-94-5584Ceycpjkq mean volume (Bld) [Entitic vol]7.5 fLNormal6.6-10.1FUniversity Hospitals Geauga Medical CenterComment on above:Performed By: #### CMP, CBC #### [facility] [address] [place] [address] USAPlatelets [#/volume] in Blood by Automated countOrdered By: Cee Proctor on 29-84-6870Tvguwicbr (Bld) [#/Vol]376 10*3/xWKfwqic787-097 [facility] CenterComment on above:Performed By: #### CMP, CBC #### [facility] [address] [place] [address] USAPotassium [Moles/volume] in Serum or PlasmaOrdered By: Cee Proctor on 76-08-0780Virtbszyw [Moles/Vol]3.9 mmol/LNormal3.5-5.1FUniversity Hospitals Geauga Medical CenterComment on above:Performed By: #### CMP, CBC #### [facility] [address] [place] [address] USAProtein [Mass/volume] in Serum or PlasmaOrdered By: Cee Proctor on 07-86-5107Eutvbhk [Mass/Vol]7.1 g/dLNormal6.4-8.9[facility] CenterComment on above:Performed By: #### CMP, CBC #### [facility] [address] [place] [address] USAProthrombin time (PT)Ordered By: Cee Proctor on 27-14-7009HD Coag (PPP) [Time]22.6 sHigh9.0-12.9[facility] Medical CenterComment on above:A hematocrit value greater than 55% may lead to inaccurate results in coagulation testing. Patientshaving hematocrit values >55% require a special collection tube for coagulation studies. Please contact the laboratory at [phone] for redraw instructions.Result Comment: A hematocrit value greater than 55% may lead to inaccurate results in coagulation testing. Patients having hematocrit values >55% require a special collection tube for coagulation studies. Please contact the laboratory at [phone] for redraw instructions.Performed By: #### CMP, CBC #### [facility] [address] [place] [id number] USARespiratory specimen influenza A virus, influenza B virus, respiratory syncytical virOrdered By: Cee Proctor on 72-43-7328NIAW-CoV-2 (COVID-19) RNA HOWIE+probe Ql (Unsp spec)[facility] County Hospitalerum globulin measurement by calculation (mass/volume)Ordered By: Cee Proctor on 79-98-0780Jlbignuz (S) [Mass/Vol]3.3 g/dLNormOhioHealth Doctors Hospital Comment on above:Performed By: #### CMP, CBC #### [place] [address] USASerum or plasma albumin/globulin mass ratioOrdered By: Cee Proctor on 06-17-9531Keurmve/Globulin [Mass ratio]1.2 {ratio}Normal [facility] CenterComment on above:Performed By: #### CMP, CBC #### [place] [address] USASerum or plasma anion gap determinationOrdered By: Cee Proctor on 57-98-8039Hcpxp gap [Moles/Vol]11.5 mmol/LNormal6.0-15.0[facility] CenterComment on above:Performed By: #### CMP, CBC #### [place] [address] USASodium [Moles/volume] in Serum or PlasmaOrdered By: Cee Proctor on 28-29-4036Mthiwk [Moles/Vol]136 mmol/PKbrbxr269-041LikvoonkvKettering Health Behavioral Medical CenterComment on above:Performed By: #### CMP, CBC #### [place] [address] USATroponin I High Sensitivityon 25-41-0841Ijuroqne I High Hlsnhctoeov1Wjasjx5-58Crn [facility] Physician GroupComment on above:Result Comment: The Troponin units of report have been changed to meet the Chest Pain Accreditation requirement, element EC5.M1l2. Troponin units are changed from pg/ml to ng/L. Also, the decimal is removed and results are in whole numbers. PERFORMED BY: [place] [address] PATHOLOGIST DATA ENTRY COORDINATOR REGGIE CASTANEDA M.D.Performed By: #### CMP, CBC #### [place] [address] USATroponin I.cardiac [Mass/volume] in Serum or Plasma by Detection limit <= 0.01 ng/mLOrdered By: Cee Proctor on 14-85-5841Opfrsqqs I.cardiac DL <= 0.01 ng/mL [Mass/Vol]7 ng/L0-20[facility] Comment on above:The Troponin units of report have been changed to meet the Chest Pain Accreditation requirement, element EC5.M1l2. Troponin units are changed from pg/ml to ng/L. Also, the decimal is removed and results are in whole numbers.Urea nitrogen [Mass/volume] in Serum or PlasmaOrdered By: Cee Proctor on 01-41-8823Wgua nitrogen [Mass/Vol]17 mg/dLNormal-[facility] Medical CenterComment on above:Performed By: #### CMP, CBC #### [place] [address] USABasophils Auto (Bld) [#/Vol]Ordered By: Ning Godoy on 85-80-9629Nnhgvndzo (Bld) [#/Vol]0.0 10 3/uL0.0-0.1FUniversity Hospitals Geauga Medical CenterBasophils/100 WBC Auto (Bld)Ordered By: Ning Godoy on 01-30-2025 Basophils/100 WBC (Bld)0.4 %0.2-2.0[facility] Eosinophils/100 WBC Auto (Bld)Ordered By: Ning Godoy on 01-30-2025 Eosinophils/100 WBC (Bld)5.0 %0.9-7.0[facility] Erythrocyte distribution width Auto (RBC) [Ratio]Ordered By: Ning Godoy on 06-36-6568Kitthpmcclk distribution width (RBC) [Ratio]20.3 %High11.0-15.0 [facility] Medical CenterGlomerular filtration rate (GFR) estimation in non- AmericanOrdered By: Ning Godoy on 94-99-2177AKC/1.73 sq M.predicted among non-blacks MDRD (S/P/Bld) [Vol rate/Area]57 mL/min/{1.73_m2}Low>=60 mL/min/1.73m 2FUniversity Hospitals Geauga Medical CenterHematocrit Auto (Bld) [Volume fraction]Ordered By: Ning Godoy on 81-04-3766Sxlxoruuhy (Bld) [Volume fraction] 32.1 %Low42.0-54.0[facility] Medical CenterHemoglobin [Mass/volume] in BloodOrdered By: Ning Godoy on 91-13-3437Duymtvfnuv (Bld) [Mass/Vol]10.4 g/dL Low14.0-18.0[facility] CenterLaboratory - Chemistry and Chemistry - challengeOrdered By: Ning Godoy on 84-49-6681Vhhceuz [Mass/Vol]8.8 mg/dL8.5-10.1FUniversity Hospitals Geauga Medical CenterChloride [Moles/Vol]106 mmol/L 98-107[facility] Medical CenterCO2 [Moles/Vol]26.2 mmol/L21.0-32.0 [facility] CenterCreatinine [Mass/Vol]1.25 mg/dL0.70-1.30 [facility] CenterGFR/1.73 sq M.predicted MDRD (S/P/Bld) [Vol rate/Area]mL/min/{1.73_m2}>=60 mL/min/1.73m 2FUniversity Hospitals Geauga Medical Center Glucose [Mass/Vol]99 mg/dR74-685YyxldohssKettering Health Behavioral Medical CenterPotassium [Moles/Vol]4.1 mmol/L3.5-5.1FLake County Memorial Hospital - Westodium [Moles/Vol] 141 mmol/G442-946XpreaeeooKettering Health Behavioral Medical CenterUrea nitrogen [Mass/Vol]21.0 mg/dLHigh7.0-18.0[facility] Medical CenterUrea nitrogen/Creatinine [Mass ratio]16.8 mg/mgKettering Health Behavioral Medical CenterLaboratory - Hematology and Cell countsOrdered By: Ning Godoy on 56-61-9195Zdtubprv granulocytes/100 WBC (Bld)0.4 %0.0-0.5FUniversity Hospitals Geauga Medical CenterLeukocytes [#/volume] corrected for nucleated erythrocytes in Blood by Automated counOrdered By: Ning Godoy on 03-25-5243FQU corrected for nucl RBC Auto (Bld) [#/Vol]5.6 10 3/uL 4.0-11.0[facility] Medical CenterLymphocytes Auto (Bld) [#/Vol]Ordered By: Ning Godoy on 02-97-8986Iqvbddymplm (Bld) [#/Vol]1.0 10 3/uLLow1.2-3.8 [facility] CenterLymphocytes/100 WBC Auto (Bld)Ordered By: Ning Godoy on 32-28-4478Oaypmfcoyyc/100 WBC (Bld)18.1 %Low20.5-60.0[facility] HospitalH Auto (RBC) [Entitic mass]Ordered By: Ning Godoy on 80-49-7278JVN (RBC) [Entitic mass]29.1 pg25.9-34.0[facility] HospitalHC Auto (RBC) [Mass/Vol]Ordered By: Ning Godoy on 27-59-6768FINB (RBC) [Mass/Vol]32.4 g/dL29.9-35.2FUniversity Hospitals Geauga Medical CenterMCV Auto (RBC) [Entitic vol]Ordered By: Ning Godoy on 38-42-2836SRQ (RBC) [Entitic vol]89.9 fL 80.0-94.0[facility] CenterMonocytes Auto (Bld) [#/Vol]Ordered By: Ning Godoy on 18-86-0835Ooirqadcq (Bld) [#/Vol]0.5 10 3/uL0.3-0.8[facility] CenterMonocytes/100 WBC Auto (Bld)Ordered By: Ning Godoy on 63-53-1332Oncibbuza/100 WBC (Bld)9.2 %1.7-12.0[facility] Neutrophils Auto (Bld) [#/Vol]Ordered By: Ning Godoy on 87-88-7701Iuwfjiksxoj (Bld) [#/Vol]3.8 10 3/uL1.4-6.5FUniversity Hospitals Geauga Medical CenterNeutrophils/100 WBC Auto (Bld)Ordered By: Ning Godoy on 47-52-7615Iczbrerptbq/100 WBC (Bld)66.9 %43.0-75.0[facility] CenterNo Panel InformationOrdered By: Ning Godoy on 78-00-2689Cjrxdspsxec # (Auto)0.3 10 3/uL0.0-0.7FUniversity Hospitals Geauga Medical CenterImmature Granulocyte # (Auto)0.02 10 3/uL0.00-0.03 [facility] Medical CenterPlatelet mean volume Auto (Bld) [Entitic vol] Ordered By: Ning Godoy on 60-09-6441Zaaxlfld mean volume (Bld) [Entitic vol]9.3 fLLow9.5-13.5FUniversity Hospitals Geauga Medical CenterPlatelets Auto (Bld) [#/Vol] Ordered By: Ning Godoy on 48-18-3600Hxptzymsc (Bld) [#/Vol]209 10 3/xN161-289 [facility] Medical CenterRBC Auto (Bld) [#/Vol]Ordered By: Ning Godoy on 79-94-9405DLS (Bld) [#/Vol]3.57 10 6/uLLow4.70-6.10[facility] Hospitalerum or plasma anion gap determinationOrdered By: Ning Godoy on 49-09-7311Nrvqt gap [Moles/Vol]12.9 mmol/LFUniversity Hospitals Geauga Medical CenterMR CARDIAC MORPHOLOGY AND FUNCTION W AND WO IV CONTRASTon 32-66-5595SL CARDIAC MORPHOLOGY AND FUNCTION W AND WO IV CONTRASTInterpreted By: Hoang Goff, STUDY: MR CARDIAC MORPHOLOGY AND FUNCTION W AND WO IV CONTRAST; 01/28/2025 12:02 pm INDICATION: Signs/Symptoms:cardiac sarcoidosis, increasing arrhythmia. This study is performed to assess myocardial viability and damage, and to quantitate left ventricular and valvular function. 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 ACCESSION NUMBER(S): [id number] ORDERING CLINICIAN: NING GODOY TECHNIQUE: Siemens1.5 Reina [...] Hoang Goff 01/29/2025 8:47 AM Dictation workstation: [id number]as HospitalBasophils Auto (Bld) [#/Vol]Ordered By: Ning Godoy on 43-59-0173Ldsymdaqu (Bld) [#/Vol]0.0 10 3/uL0.0-0.1FUniversity Hospitals Geauga Medical CenterBasophils/100 WBC Auto (Bld)Ordered By: Ning Godoy on 84-57-9890Yqdbvqatw/100 WBC (Bld)0.1 % Low0.2-2.0[facility] CenterEosinophils/100 WBC Auto (Bld)Ordered By: Ning Godoy on 96-49-0769Boiewkqqria/100 WBC (Bld)0.3 %Low0.9-7.0[facility] Medical CenterErythrocyte distribution width Auto (RBC) [Ratio]Ordered By: Ning Godoy on 21-79-9673Asinxcimnno distribution width (RBC) [Ratio]19.4 % High11.0-15.0[facility] Medical CenterGlomerular filtration rate (GFR) estimation in non- AmericanOrdered By: Ning Godoy on 19-01-7649DHS/1.73 sq M.predicted among non-blacks MDRD (S/P/Bld) [Vol rate/Area]mL/min/{1.73_m2} >=60 mL/min/1.73m 2FUniversity Hospitals Geauga Medical CenterHematocrit Auto (Bld) [Volume fraction]Ordered By: Ning Godoy on 07-16-4076Scsgusdyrq (Bld) [Volume fraction]33.4 %Low42.0-54.0[facility] Medical CenterHemoglobin [Mass/volume] in BloodOrdered By: Ning Godoy on 37-10-8671Wznyyyngcy (Bld) [Mass/Vol]11.0 g/dLLow14.0-18.0[facility] CenterLaboratory - Chemistry and Chemistry - challengeOrdered By: Ning Godoy on 16-38-3418Rwcigti [Mass/Vol]8.5 mg/dL8.5-10.1FUniversity Hospitals Geauga Medical CenterChloride [Moles/Vol] 104 mmol/B79-884ChwxujqtmKettering Health Behavioral Medical CenterCO2 [Moles/Vol]29.8 mmol/L 21.0-32.0[facility] CenterCreatinine [Mass/Vol]1.15 mg/dL 0.70-1.30[facility] CenterGFR/1.73 sq M.predicted MDRD (S/P/Bld) [Vol rate/Area]mL/min/{1.73_m2}>=60 mL/min/1.73m 2FUniversity Hospitals Geauga Medical CenterGlucose [Mass/Vol]76 mg/uT11-662QtynqdqwpKettering Health Behavioral Medical CenterMagnesium [Mass/Vol]1.9 mg/dL1.8-2.4FUniversity Hospitals Geauga Medical CenterNatriuretic peptide B (Bld) [Mass/Vol]2617.0 pg/mLCritically high<=900.0[facility] CenterComment on above:RESULTS CALLED TO KRISTIN TAYLOR LPNPotassium [Moles/Vol] 3.1 mmol/LLow3.5-5.1FLake County Memorial Hospital - Westodium [Moles/Vol]142 mmol/M663-580YtwnrobaxKettering Health Behavioral Medical CenterUrea nitrogen [Mass/Vol]32.0 mg/dL High7.0-18.0[facility] CenterUrea nitrogen/Creatinine [Mass ratio]27.8 mg/mgKettering Health Behavioral Medical CenterLaboratory - Hematology and Cell countsOrdered By: Ning Godoy on 53-71-1696Aqzvdpov granulocytes/100 WBC (Bld)1.6 %High0.0-0.5FUniversity Hospitals Geauga Medical CenterLeukocytes [#/volume] corrected for nucleated erythrocytes in Blood by Automated counOrdered By: Ning Godoy on 98-25-0732HPV corrected for nucl RBC Auto (Bld) [#/Vol]17.9 10 3/uL High4.0-11.0[facility] Medical CenterLymphocytes Auto (Bld) [#/Vol] Ordered By: Ning Godoy on 23-59-5528Louhaspxauf (Bld) [#/Vol]1.9 10 3/uL1.2-3.8 [facility] CenterLymphocytes/100 WBC Auto (Bld)Ordered By: Ning Godoy on 62-85-7386Wktqnmlulwg/100 WBC (Bld)10.5 %Low20.5-60.0[facility] Auto (RBC) [Entitic mass]Ordered By: Ning Godoy on 47-31-3788SGL (RBC) [Entitic mass]28.6 pg25.9-34.0[facility] Medical CenterMCHC Auto (RBC) [Mass/Vol]Ordered By: Ning Godoy on 07-64-2664OYER (RBC) [Mass/Vol]32.9 g/dL29.9-35.2FUniversity Hospitals Geauga Medical CenterMCV Auto (RBC) [Entitic vol]Ordered By: Ning Godoy on 18-11-2956LVG (RBC) [Entitic vol]86.8 fL 80.0-94.0[facility] CenterMonocytes Auto (Bld) [#/Vol]Ordered By: Ning Godoy on 73-96-8035Jaagtpvqp (Bld) [#/Vol]1.0 10 3/uLHigh0.3-0.8 [facility] CenterMonocytes/100 WBC Auto (Bld)Ordered By: Ning Godoy on 34-75-6666Bveyhdiyu/100 WBC (Bld)5.5 %1.7-12.0[facility] Medical CenterNeutrophils Auto (Bld) [#/Vol]Ordered By: Ning Godoy on 11-69-7567Iudeplqqiml (Bld) [#/Vol]14.6 10 3/uLHigh1.4-6.5FUniversity Hospitals Geauga Medical CenterNeutrophils/100 WBC Auto (Bld)Ordered By: Ning Godoy on 40-25-0784Hfnxchjznbu/100 WBC (Bld)82.0 %High43.0-75.0[facility] CenterNo Panel InformationOrdered By: Ning Godoy on 97-19-9452Zgluwgvsbvq # (Auto)0.1 10 3/uL0.0-0.7FUniversity Hospitals Geauga Medical CenterImmature Granulocyte # (Auto)0.29 10 3/uLHigh0.00-0.03[facility] Medical CenterPlatelet mean volume Auto (Bld) [Entitic vol]Ordered By: Ning Godoy on 62-24-1793Rsemzvmz mean volume (Bld) [Entitic vol]9.8 fL9.5-13.5FUniversity Hospitals Geauga Medical Center Platelets Auto (Bld) [#/Vol]Ordered By: Ning Godoy on 99-15-7751Pmurwtujn (Bld) [#/Vol]331 10 3/wD699-223CdxigllzdKettering Health Behavioral Medical CenterRBC Auto (Bld) [#/Vol]Ordered By: Ning Godoy on 02-71-8927OVV (Bld) [#/Vol]3.85 10 6/uLLow 4.70-6.10[facility] County Hospitalerum or plasma anion gap determinationOrdered By: Ning Godoy on 45-53-1762Tlkwi gap [Moles/Vol]11.3 mmol/LFUniversity Hospitals Geauga Medical CenterBasic Metabolic Panelon 01-09-2025 Creatinine Clr Calc Tondtpyj37.32NormHealthmark Regional Medical Center Physician GroupComment on above:Performed By: #### CMP, CBC #### [facility] [address] [place] [address] USAGFR/1.73 sq M.predicted MDRD (S/P/Bld) [Vol rate/Area] mL/min/{1.73_m2}NormalThe [facility] Physician GroupComment on above:Performed By: #### CMP, CBC #### [facility] [address] [place] [address] USACalcium [Mass/volume] in Serum or PlasmaOrdered By: Jostin Larose on 05-87-7529Oevzwnc [Mass/Vol]8.8 mg/dLNormal8.6-10.3FUniversity Hospitals Geauga Medical CenterComment on above:Performed By: #### CMP, CBC #### [facility] [address] [place] [address] USACarbon dioxide, total [Moles/volume] in Serum or Plasma Ordered By: Jostin Larose on 24-66-6330BA4 [Moles/Vol]26.9 mmol/PAhujjh13.0-31.0 [facility] Medical CenterComment on above:Performed By: #### CMP, CBC #### [facility] [address] [place] [address] USAChloride [Moles/volume] in Serum or PlasmaOrdered By: Jostin Larose on 80-41-1030Onmcsrrb [Moles/Vol]104 mmol/NKgamiv75-809DpgpewiuwKettering Health Behavioral Medical CenterComment on above:Performed By: #### CMP, CBC #### [facility] [address] [place] [address] USACreatinine [Mass/volume] in Serum or PlasmaOrdered By: Jostin Larose on 88-67-8540Ytsquxtbaf [Mass/Vol]1.15 mg/dLNormal0.70-1.30 [facility] Medical CenterComment on above:Performed By: #### CMP, CBC #### [facility] [address] [place] [id number] USAECG 12 lead ECGon 22-55-1220TPZ 12 lead ECGPARKVIEW [facility] Main [place] [address] [place] [address] Electrocardiograph Report Signed Patient: Mary Mcadams MR#: [id number] 3267 : 1955 Acct:[id number] Age/Sex: 69 / M ADM Date: 01/05/25 Loc: Room: [address] [place] [address] Type: ADM IN Attending Dr: Jostin Larose DO Ordering Provider: Chacho Burroughs MD Date of Service: 01/09/25 ECG/ECG 12 lead ECG: qtc Copies to: Test Reason : Blood Pressure : */* mmHG Vent. Rate : 84 BPM Atrial Rate : 84 BPM P-R Int : 188 ms QRS Dur : 136 ms QT Int : 464 ms P-R-T Axes : 69 -38 231 degrees QTcB Int : 548 ms Normal sinus rhythm Left axis deviation Left ventricular hypertrophy with QRS widening ( R in aVL , [place] product ) Marked T wave abnormality, consider anterolateral ischemia Abnormal ECG Confirmed by Romelia Garrido ([id number]) on 01/09/2025 4:57:12 PM Referred By: Electronically Signed By: Romelia Garrido Transcribed By: MUS Signed By Romelia Garrido MD 5 1657[facility] Physician GroupGlomerular filtration rate [Volume Rate/Area] in Serum, Plasma or Blood by CreatinineOrdered By: Jostin Larose on 11-43-5904Vlxxkdvzqn filtration rate [Volume Rate/Area] in Serum, Plasma or Blood by Creatinine> 60.0 mL/MinKettering Health Behavioral Medical CenterGlucose [Mass/volume] in Serum or PlasmaOrdered By: Jostin Larose on 81-37-7342Ysysqkn [Mass/Vol]132 mg/cVQfgg79-678VfjkoytsoKettering Health Behavioral Medical CenterComment on above: ADA recommended reference rangeRandom Glucose Reference Range is dependent on time and content of last meal. Glucose of more than 200 mg/dL in a nonstressed, ambulatory subject supports the diagnosisof Diabetes Mellitus.Result Comment: Random Glucose Reference Range is dependent on time and content of last meal. Glucose of more than 200 mg/dL in a nonstressed, ambulatory subject supports the diagnosis of Diabetes Mellitus. ADA recommended reference rangePerformed By: #### CMP, CBC #### [facility] [address] [place] [address] USAMagnesium [Mass/volume] in Serum or PlasmaOrdered By: Jostin Larose on 87-18-8439Kbehuhcua [Mass/Vol]2.3 mg/dLNormal1.9-2.7FUniversity Hospitals Geauga Medical CenterComment on above:Result Comment: PERFORMED BY: [facility] [address] [place] [address] PATHOLOGIST DATA ENTRY COORDINATOR REGGIE CASTANEDA M.D.Performed By: #### CMP, CBC #### [facility] [address] [place] [address] USANo Panel InformationOrdered By: Jostin Larose on 01-09-2025 Pharmacy Creatinine Clearance (Chem51.32[facility] Potassium [Moles/volume] in Serum or PlasmaOrdered By: Jostin Larose on 36-80-8677Ilfgdrcnt [Moles/Vol]4.9 mmol/LNormal3.5-5.1FUniversity Hospitals Geauga Medical CenterComment on above:Performed By: #### CMP, CBC #### [facility] [address] [place] [address] USASerum or plasma anion gap determinationOrdered By: Jostin Larose on 22-31-3604Lpbno gap [Moles/Vol]11.0 mmol/LNormal6.0-15.0[facility] Medical CenterComment on above:Performed By: #### CMP, CBC #### [facility] [address] [place] [address] USASodium [Moles/volume] in Serum or PlasmaOrdered By: Jostin Larose on 50-40-4123Vhpiuz [Moles/Vol]137 mmol/WEvzkqu515-831YgtxmrwbxKettering Health Behavioral Medical CenterComment on above:Performed By: #### CMP, CBC #### [place] [address] USAUrea nitrogen [Mass/volume] in Serum or PlasmaOrdered By: Jostin Larose on 30-42-7475Lcou nitrogen [Mass/Vol]45 mg/dLHigh7-25[facility] Medical CenterComment on above:Performed By: #### CMP, CBC #### [facility] [address] [place] [id number] USABasic Metabolic Panelon 37-19-1872Aeuxl gap [Moles/Vol] 10.0 mmol/LNormal6.0-15.0The [facility] Physician GroupComment on above:Performed By: #### BMP #### [facility] [address] [place] [address] USACalcium [Mass/Vol]8.8 mg/dLNormal8.6-10.3The [facility] Physician GroupComment on above:Performed By: #### BMP #### [facility] [address] [place] [address] USAChloride [Moles/Vol]102 mmol/TRamyui04-821Iao [facility] Physician GroupComment on above:Performed By: #### BMP #### [facility] [address] [place] [address] USACO2 [Moles/Vol]27.4 mmol/HNsvxiy51.0-31.0The [facility] Physician GroupComment on above:Performed By: #### BMP #### [facility] [address] [place] [address] USACreatinine [Mass/Vol]1.30 mg/dLNormal0.70-1.30The [facility] Physician GroupComment on above:Performed By: #### BMP #### [facility] [address] [place] [address] USACreatinine Clr Calc Ifbiibfm13.62NormalThe [facility] Physician GroupComment on above:Performed By: #### BMP #### [place] [address] USAGFR/1.73 sq M.predicted MDRD (S/P/Bld) [Vol rate/Area] 59.099 mL/min/{1.73_m2}NormalThe [facility] Physician GroupComment on above: Performed By: #### BMP #### [place] [address] USAGlucose [Mass/Vol]142 mg/tSZynt55-808Qzi [facility] Physician GroupComment on above:Result Comment: Random Glucose Reference Range is dependent on time and content of last meal. Glucose of more than 200 mg/dL in a nonstressed, ambulatory subject supports the diagnosis of Diabetes Mellitus. ADA recommended reference rangePerformed By: #### BMP #### [place] [address] USAPotassium [Moles/Vol]4.4 mmol/LNormal3.5-5.1The [facility] Physician GroupComment on above:Performed By: #### BMP #### [facility] [address] [place] [address] USASodium [Moles/Vol]135 mmol/TRro700-095Xzp [facility] Physician GroupComment on above:Performed By: #### BMP #### [facility] [address] [place] [address] USAUrea nitrogen [Mass/Vol]35 mg/dLHigh7-25The [facility] Physician GroupComment on above:Performed By: #### BMP #### [facility] [address] [place] [address] USAECG 12 lead ECGon 20-12-5401TEV 12 lead ECGPARKVIEW [facility]ALTH [facility] Main [place] [address] [place] [address] Electrocardiograph Report Signed Patient: Mary Mcadams MR#: [id number] 3267 : 1955 Acct:[id number] Age/Sex: 69 / M ADM Date: 01/05/25 Loc: Room: [address] [place] [address] Type: ADM IN Attending Dr: Jostin Larose DO Ordering Provider: Chacho Burroughs MD Date of Service: 01/08/25 ECG/ECG 12 lead ECG: monitor for Takotsubo Copies to: Test Reason : Blood Pressure : */* mmHG Vent. Rate : 84 BPM Atrial Rate : 84 BPM P-R Int : 160 ms QRS Dur : 132 ms QT Int : 502 ms P-R-T Axes : -3 -36 261 degrees QTcB Int : 593 ms Normal sinus rhythm Left axis deviation Nonspecific intraventricular conduction delay Marked T wave abnormality, consider anterolateral ischemia Abnormal ECG Confirmed by Andres Herrera ([id number]) on 01/09/2025 3:06:30 PM Referred By: Electronically Signed By: Andres Herrera Transcribed By: MUS Signed By Andres Herrera MD 01/09/25 1506NormalThBenewah Community Hospital Physician GroupMagnesiumon 63-90-6342Kxqofvgwe [Mass/Vol]1.8 mg/dLLow1.9-2.7The [facility] Physician GroupComment on above: Result Comment: PERFORMED BY: [place] [address] PATHOLOGIST DATA ENTRY COORDINATOR REGGIE CASTANEDA M.D.Performed By: #### BMP #### [place] [address] USABasic Metabolic Panelon 94-08-7286Elotv gap [Moles/Vol]9.0 mmol/LNormal6.0-15.0The [facility] Physician GroupComment on above:Performed By: #### CMP, CBC #### [place] [address] USACalcium [Mass/Vol]8.7 mg/dLNormal8.6-10.3The [facility] Physician GroupComment on above:Performed By: #### CMP, CBC #### [place] [address] USAChloride [Moles/Vol]106 mmol/IVutoxb39-121Fcr [facility] Physician GroupComment on above:Performed By: #### CMP, CBC #### [place] [address] USACO2 [Moles/Vol]27.0 mmol/MLasbne12.0-31.0The [facility] Physician GroupComment on above:Performed By: #### CMP, CBC #### [place] [address] USACreatinine [Mass/Vol]0.98 mg/dLNormal0.70-1.30The [facility] Physician GroupComment on above:Performed By: #### CMP, CBC #### [place] [address] USACreatinine Clr Calc Zragwdyz06.71NormalThe [facility] Physician GroupComment on above:Performed By: #### CMP, CBC #### [place] [address] USAGFR/1.73 sq M.predicted MDRD (S/P/Bld) [Vol rate/Area] mL/min/{1.73_m2}NormalThe [facility] Physician GroupComment on above:Performed By: #### CMP, CBC #### [address] [place] [place] [address] USAGlucose [Mass/Vol]94 mg/vQTnuiuk83-268Fpr [facility] Physician GroupComment on above:Result Comment: Random Glucose Reference Range is dependent on time and content of last meal. Glucose of more than 200 mg/dL in a nonstressed, ambulatory subject supports the diagnosis of Diabetes Mellitus. ADA recommended reference rangePerformed By: #### CMP, CBC #### [facility] [address] [place] [address] USAPotassium [Moles/Vol]4.0 mmol/LNormal3.5-5.1The [facility] Physician GroupComment on above:Performed By: #### CMP, CBC #### [facility] [address] [place] [address] USASodium [Moles/Vol]138 mmol/RGzyyog198-360Umz [facility] Physician GroupComment on above:Performed By: #### CMP, CBC #### [facility] [address] [place] [address] USAUrea nitrogen [Mass/Vol]29 mg/dLHigh7-25The [facility] Physician GroupComment on above:Performed By: #### CMP, CBC #### [facility] [address] [place] [address] USAECG 12 lead ECGon 70-64-5502KXZ 12 lead ECGPARKVIEW [facility]ALTH [facility] Main [place] [address] [place] [address] Electrocardiograph Report Signed Patient: Mary Mcadams MR#: [id number] 3267 : 1955 Acct:[id number] Age/Sex: 69 / M ADM Date: 01/05/25 Loc: Room: [address] [place] [address] Type: ADM IN Attending Dr: Jostin Larose DO Ordering Provider: Chacho Burroughs MD Date of Service: 01/07/25 ECG/ECG 12 lead ECG: rule out Takotsubo Copies to: Test Reason : Blood Pressure : */* mmHG Vent. Rate : 82 BPM Atrial Rate : 75 BPM P-R Int : * ms QRS Dur : 122 ms QT Int : 616 ms P-R-T Axes : * 42 189 degrees QTcB Int : 719 ms Normal sinus rhythm Nonspecific intraventricular conduction delay Abnormal ECG Confirmed by Andres Herrera ([id number]) on 01/07/2025 1:35:33 PM Referred By: Electronically Signed By: Andres Herrera Transcribed By: MUS Signed By Andres Herrera MD 01/07/[address] [place] [address] Physician Alliance HospitalErythrocyte distribution width [Ratio] by Automated countOrdered By: Jostin Larose on 79-21-9014Ueqkqfesdgn distribution width (RBC) [Ratio]18.1 %High12.0-14.8[facility] Medical CenterComment on above:Performed By: #### CMP, CBC #### [place] [address] USAErythrocytes [#/volume] in Blood by Automated countOrdered By: Jostin Larose on 17-89-4624JOP (Bld) [#/Vol]3.23 10*6/uLLow3.90-5.60 [facility] CenterComment on above:Performed By: #### CMP, CBC #### [facility] [address] [place] [address] USAHematocrit [Volume Fraction] of Blood by Automated count Ordered By: Jostin Larose on 85-91-9181Wtujrhqwca (Bld) [Volume fraction]26.8 % Low38.8-50.0[facility] Medical CenterComment on above:Performed By: #### CMP, CBC #### [facility] [address] [place] [address] USAHemoglobin [Mass/volume] in BloodOrdered By: Jostin Larose on 51-40-0048Jvevlnchpv (Bld) [Mass/Vol]9.1 g/dLLow13.0-17.0[facility] Medical CenterComment on above:Performed By: #### CMP, CBC #### [place] [address] USAHemogram CBC Without Diffon 24-26-9803Ihqz Corpuscular HGB Conc34.0 g/cCXnunkp34.5-35.6The [facility] Physician GroupComment on above: Performed By: #### CMP, CBC #### [facility] [address] [place] [address] USAWhite Blood Count9.4 [CFU]/mLNormal4.1-10.5The [facility] Physician GroupComment on above:Performed By: #### CMP, CBC #### [facility] [address] [place] [address] USALeukocytes [#/volume] corrected for nucleated erythrocytes in Blood by Automated counOrdered By: Jostin Larose on 73-26-2052ZAG corrected for nucl RBC Auto (Bld) [#/Vol]9.4 10*3/uL4.1-10.5FFostoria City Hospital [Entitic mass] by Automated countOrdered By: Jostin Larose on 70-34-0393LYG (RBC) [Entitic mass]28.2 tpAarsqs68.5-35.2FUniversity Hospitals Geauga Medical CenterComment on above:Performed By: #### CMP, CBC #### [facility] [address] [place] [address] USAHC Auto (RBC) [Mass/Vol]Ordered By: Jostin Larose on 93-41-7335HQKT (RBC) [Mass/Vol]34.0 g/dL32.5-35.6FUniversity Hospitals Geauga Medical CenterMCV [Entitic volume] by Automated countOrdered By: Jostin Larose on 75-78-8316CBM (RBC) [Entitic vol]82.9 fLLow83.5-101[facility] Medical CenterComment on above:Performed By: #### CMP, CBC #### [facility] [address] [place] [id number] USAMagnesiumon 40-74-1941Pzbkqumkm [Mass/Vol]1.7 mg/dLLow 1.9-2.7The [facility] Physician GroupComment on above:Result Comment: PERFORMED BY: [place] [address] PATHOLOGIST DATA ENTRY COORDINATOR REGGIE CASTANEDA M.D.Performed By: #### CMP, CBC #### [place] [address] USAPlatelet mean volume [Entitic volume] in Blood by Automated countOrdered By: Jostin Larose on 45-26-6613Axyqlcxa mean volume (Bld) [Entitic vol]7.8 fLNormal6.6-10.1FUniversity Hospitals Geauga Medical CenterComment on above:Result Comment: PERFORMED BY: [place] [address] PATHOLOGIST DATA ENTRY COORDINATOR REGGIE CASTANEDA M.D.Performed By: #### CMP, CBC #### [place] [address] USAPlatelets [#/volume] in Blood by Automated countOrdered By: Jostin Larose on 26-18-1866Nhjqbxiwm (Bld) [#/Vol]265 10*3/lFHpqnqz696-495 [facility] CenterComment on above:Performed By: #### CMP, CBC #### [place] [address] USABasic Metabolic Panelon 41-28-3568Axsxy gap [Moles/Vol] 10.2 mmol/LNormal6.0-15.0The [facility] Physician GroupComment on above:Performed By: #### BMP #### [place] [address] USACalcium [Mass/Vol]8.5 mg/dLLow8.6-10.3The [facility] Physician GroupComment on above:Performed By: #### BMP #### [place] [address] USAChloride [Moles/Vol]106 mmol/LUzunod84-589Dlp [facility] Physician GroupComment on above:Performed By: #### BMP #### [place] [address] USACO2 [Moles/Vol]24.8 mmol/AGpmjxl24.0-31.0The [facility] Physician GroupComment on above:Performed By: #### BMP #### [place] [address] USACreatinine [Mass/Vol]1.07 mg/dLNormal0.70-1.30The [facility] Physician GroupComment on above:Performed By: #### BMP #### [place] [address] USACreatinine Clr Calc Itikuzjx20.33NormalThe [facility] Physician GroupComment on above:Result Comment: PERFORMED BY: [place] [address] PATHOLOGIST DATA ENTRY COORDINATOR REGGIE CASTANEDA M.D.Performed By: #### BMP #### [place] [address] USAGFR/1.73 sq M.predicted MDRD (S/P/Bld) [Vol rate/Area] mL/min/{1.73_m2}NormalThe [facility] Physician GroupComment on above:Performed By: #### BMP #### [place] [address] USAGlucose [Mass/Vol]134 mg/yPQwjc39-710Mop [facility] Physician GroupComment on above:Result Comment: Random Glucose Reference Range is dependent on time and content of last meal. Glucose of more than 200 mg/dL in a nonstressed, ambulatory subject supports the diagnosis of Diabetes Mellitus. ADA recommended reference rangePerformed By: #### BMP #### [place] [address] USAPotassium [Moles/Vol]4.0 mmol/LNormal3.5-5.1The [facility] Physician GroupComment on above:Performed By: #### BMP #### [place] [address] USASodium [Moles/Vol]137 mmol/DQgexxd686-639Lhm [facility] Physician GroupComment on above:Performed By: #### BMP #### [place] [address] USAUrea nitrogen [Mass/Vol]22 mg/dLNormal7-25The [facility] Physician GroupComment on above:Performed By: #### BMP #### [address] [place] [address] USAECH echo transthoracicon 94-81-0146CQF echo transthoracic [facility] Main [place] [address] [place] [address] Echocardiogram Signed Patient: Mary Mcadams MR#: [id number] 3267 : 1955 Acct:[id number] Age/Sex: 69 / M ADM Date: 01/05/25 Loc: Room: [address] [place] [address] Type: ADM IN Attending Dr: Jostin Larose DO Ordering Provider: Elsie Leonard MD Date of Service: 01/05/25 ECH/ECH echo transthoracic: abn trop Copies to: MD Elsie Zimmer MD Weight: 135 lb Performed By: Bayron Miller RDCS, T BSA: 1.8 m2 BP: 96/62 mmHg HR: 71 Reason For Study: abn trop History: ARF NSTEMI AFib HFrEF CM Interpretation Summary Ejection Fraction = 45-50%. There is mild global hypokinesis of the left ventricle. Mild concentric left ventricular hypertrophy. The left atrium appears severely dilated. Mild aortic regurgitation. Mildly dilated ascending aorta. Compared to prior study, there is no significant change. Procedure/Quality: A two-dimensional transthoracic echocardiogram with color flow, Doppler and injection of contrast agent Definity was performed. The study was technically good in quality. Left Ventricle: The left ventricular size is normal. Mild concentric left ventricular hypertrophy. Ejection Fraction = 45-50%. Inadequate for diastolic assessment. There is mild global hypokinesis of the left ventricle. No left ventricular thrombus or mass is seen. Left Atrium: The left atrium appears severely dilated. Right Atrium: The right atrium appears normal in size. Right Ventricle: The right ventricle is normal in size and function. Aortic Valve: The aortic valve is not well visualized. No hemodynamically significant valvular aortic stenosis. Mild aortic regurgitation. Mitral Valve: The mitral valve is normal in structure. No significant mitral valve stenosis. There is no mitral regurgitation noted. Tricuspid Valve: The tricuspid valve is normal in structure. No tricuspid regurgitation. Pulmonic Valve: The pulmonic valve is not well visualized. No significant pulmonic regurgitation. Arteries: The aortic root is normal size. Mildly dilated ascending aorta. Pericardium/Pleura: No pericardial effusion seen. IVC/Hepatic Veins: The inferior vena cava is normal in size, with a normal collapsibility index. Measurements with Normals IVSd: 1.3 cm (0.7-1.1 cm)LVIDd: 4.7 cm (3.7-5.4 cm) LVPWd: 1.3 cm (0.7-1.1 cm)LVIDs: 3.4 cm (2.3-3.6 cm) LA dimension: 4.2 cm (2.3-4.0 cm)Ao root diam: 3.7 cm(2.0-3.6 cm) asc Aorta Diam: 4.1 cm(2.1-3.4cm) Doppler with Normals RVSP(TR): 25.1 mmHg (18-35mmHg) LV V1 max: 64.3 cm/sec (0.7-1.7m/s)MV E max christina: 63.0 cm/sec(0.8-1.3m/s) MV A max christina: 44.1 cm/sec(0.0-0.0m/s) MV E/A: 1.4 (<1.5) MMode/2D Measurements Calculations TAPSE: 1.9 cm FS: 28.0 % Ao root area: LVOT diam: 2.1 cm RV S Christina: EDV(Teich): 99.8 ml 10.8 cm2 LVOT area: 3.5 cm2 11.2 cm/sec ESV(Teich): 45.8 ml EF(Teich): 54.2 % __ LVLd ap4: 9.4 cm SV(MOD-sp4): 76.6 ml LAV(MOD-sp4): LA A2 area: EDV(MOD-sp4): 84.8 ml 26.2 cm2 145.0 ml LAV(MOD-sp2): LA A4 area: LVLs ap4: 8.6 cm 89.9 ml ESV(MOD-sp4): 24.6 cm2 68.4 ml LA length (vol): EF(MOD-sp4): 5.7 cm 52.8 % LA vol: 95.8 ml LA vol index: 53.2 ml/m2 __ RA Volume: 25.9 ml RA Volume Index: 14.4 ml/m2 Doppler Measurements Calculations MV dec time: MV V2 max: E/E' lat: 4.3 Ao V2 max: 0.16 sec 63.1 cm/sec E/E' med: 12.3 105.0 cm/sec MV max P.6 mmHg Ao max P.4 mmHg MV V2 mean: Ao mean P.4 cm/sec 2.0 mmHg MV mean PG: Ao V2 mean: 1.0 mmHg 70.6 cm/sec MV V2 VTI: 15.8 cm Ao V2 VTI: 20.0 cm MVA(VTI): 2.7 cm2 CATARINO(I,D): 2.1 cm2 CATARINO(V,D): 2.1 cm2 __ LV V1 max PG: TV max PG: TR max christina: 1.7 mmHg 22.0 mmHg 235.0 cm/sec LV V1 mean PG: TR max P.1 mmHg 1.0 mmHg RAP systole: LV V1 mean: 3.0 mmHg 43.5 cm/sec LV V1 VTI: 12.3 cm Transcribed By: SCV Performed At: 01/06/25 1040 Signed By: Andres Herrera MD 01/06/25 1610NormHealthmark Regional Medical Center Physician GroupPartial Thromboplastin Timeon 49-31-1816sIYX Coag (Bld) [Time] 63.1 sHigh25.1-36.5The [facility] Physician GroupComment on above:Result Comment: A hematocrit value greater than 55% may lead to inaccurate results in coagulation testing. Patients having hematocrit values >55% require a special collection tube for coagulation studies. Please contact the laboratory at [phone] for redraw instructions. PERFORMED BY: [facility] [place] [address] PATHOLOGIST DATA ENTRY COORDINATOR REGGIE CASTANEDA M.D.Performed By: #### BMP #### [facility] [address] [place] [address] USAaPTT Coag (Bld) [Time]63.0 sHigh25.1-36.5The [facility] Physician Alliance HospitalComment on above:Order Comment: List the anticoagulant: HEPARIN, UNFRACTIONATEDResult Comment: A hematocrit value greater than 55% may lead to inaccurate results in coagulation testing. Patients having hematocrit values >55% require a special collection tube for coagulation studies. Please contact the laboratory at [phone] for redraw instructions. PERFORMED BY: [facility] [address] [place] [address] PATHOLOGIST DATA ENTRY COORDINATOR REGGIE CASTANEDA M.D.Performed By: #### BMP #### [facility] [address] [place] [address] USAaPTT in Platelet poor plasma by Coagulation assayOrdered By: Elsie Leonard on 93-94-7117lFRR Coag (PPP) [Time]63.1 sHigh25.1-36.5 [facility] Medical CenterComment on above:A hematocrit value greater than 55% may lead to inaccurate results in coagulation testing. Patientshaving hematocrit values >55% require a special collection tube for coagulation studies. Please contact the laboratory at [phone] for redraw instructions. Basic Metabolic Panelon 50-69-6046Natmo gap [Moles/Vol]13.5 mmol/LNormal6.0-15.0 The [facility] Physician GroupComment on above:Performed By: #### CBC, BMP ####[facility] [place] [address] USACalcium [Mass/Vol]8.7 mg/dLNormal8.6-10.3The [facility] Physician GroupComment on above: Performed By: #### CBC, BMP ####[facility] [place] [address] USAChloride [Moles/Vol]104 mmol/IBpaulo20-203Tjo [facility] Physician GroupComment on above:Performed By: #### CBC, BMP ####[facility] [place] [id number] USACO2 [Moles/Vol]23.3 mmol/DLeceau10.0-31.0The [facility] Physician GroupComment on above:Performed By: #### CBC, BMP ####[place] [address]70 USACreatinine [Mass/Vol]0.86 mg/dLNormal0.70-1.30The [facility] Physician GroupComment on above:Performed By: #### CBC, BMP ####[place] [address] USA Creatinine Clr Calc Mwycpljj75.85NormHealthmark Regional Medical Center Physician GroupComment on above:Result Comment: PERFORMED BY: [facility] [address] [place] [id number] PATHOLOGIST DATA ENTRY COORDINATOR REGGIE CASTANEDA M.D.Performed By: #### CBC, BMP ####[place] [address] USAGFR/1.73 sq M.predicted MDRD (S/P/Bld) [Vol rate/Area]mL/min/{1.73_m2}NormalThe [facility] Physician GroupComment on above:Performed By: #### CBC, BMP ####[place] [address] USAGlucose [Mass/Vol]165 mg/iLImaj19-500Bij [facility] Physician GroupComment on above:Result Comment: Random Glucose Reference Range is dependent on time and content of last meal. Glucose of more than 200 mg/dL in a nonstressed, ambulatory subject supports the diagnosis of Diabetes Mellitus. ADA recommended reference rangePerformed By: #### CBC, BMP ####[place] [address] USAPotassium [Moles/Vol] 3.8 mmol/LNormal3.5-5.1The [facility] Physician GroupComment on above:Performed By: #### CBC, BMP ####[place] [id number] USASodium [Moles/Vol]137 mmol/VAchrjy891-819Fby [facility] Physician GroupComment on above:Performed By: #### CBC, BMP ####[place] [address] [place] [address] USAUrea nitrogen [Mass/Vol]11 mg/dL Normal7-25The [facility] Physician GroupComment on above:Performed By: #### CBC, BMP ####[place] [address] [place] Basophils [#/volume] in Blood by Automated countOrdered By: Elsie Leonard on 81-28-0348Dkdkdaxxp (Bld) [#/Vol]0.0 10*3/uLNormal0.0-0.2FUniversity Hospitals Geauga Medical CenterComment on above:Result Comment: PERFORMED BY: [place] [address] PATHOLOGIST DATA ENTRY COORDINATOR REGGIE CASTANEDA M.D.Performed By: #### CBC, BMP ####[place] [address] USABasophils/100 leukocytes in Blood by Automated countOrdered By: Elsie Leonard on 53-00-0882Vfpnksubp/100 WBC (Bld) 0.1 %Normal.[facility] Medical CenterComment on above:Performed By: #### CBC, BMP ####[place] [address] USACT angio chest PE protocolon 66-44-5717VC angio chest PE protocolPARKVIEW HEALTH [facility] Main [place] [address] [place] [address] CT Scan Report Signed Patient: Mary Mcadams MR#: [id number] : 1955 Acct:[id number] Age/Sex: 69 / M ADM Date: 01/05/25 Loc: Room: [address] [place] [address] Type: ADM IN Attending Dr: Altaf Jones MD Copies to: MD Cee Carballo DO Ordering Provider: Cee Proctor DO Date of Service: 01/05/25 CT/CT angio chest PE protocol: Hypoxia elevated troponin CT angio chest PE protocol 01/05/2025 1:24 AM SIGN AND SYMPTOMS: Hypoxia elevated troponin, A. fib, history of sarcoidosis [...] no evidence of pulmonary embolism. Mediastinum and Randi: Densely [...] Varela M.D. 01/05/2025 11:46 AM Dictation Location: [place] [address] Transcribed By: [facility] 01/05/25 1146 Dictated By: Juliocesar Varela II, MD 01/05/25 1138 Signed By: 01/05/25 1146[facility] Physician GroupComplete Blood Count Auto Diffon 26-90-0861Wydopviralo distribution width (RBC) [Ratio]17.5 %High12.0-14.8The [facility] Physician GroupComment on above:Performed By: #### CBC, BMP ####[address] Hematocrit (Bld) [Volume fraction]29.8 %Low38.8-50.0The [facility] Physician GroupComment on above:Performed By: #### CBC, BMP ####[place] [address] USAHemoglobin (Bld) [Mass/Vol]9.9 g/dLLow 13.0-17.0The [facility] Physician GroupComment on above:Performed By: #### CBC, BMP ####[address] StreetMCH (RBC) [Entitic mass]28.0 dlGpafek58.5-35.2The [facility] Physician GroupComment on above:Performed By: #### CBC, BMP ####[place] [address] USAMCV (RBC) [Entitic vol]84.1 hLXvqnzk82.5-101 The [facility] Physician GroupComment on above:Performed By: #### CBC, BMP ####[place] [address] USAMean Corpuscular HGB Conc33.3 g/fWQjldub22.5-35.6The [facility] Physician GroupComment on above:Performed By: #### CBC, BMP ####[place] [address] USANRBC%0.0 /100{WBC}Normal0-0.5The [facility] Physician GroupComment on above:Performed By: #### CBC, BMP ####[place] [address] USAPlatelet mean volume (Bld) [Entitic vol]7.7 fLNormal6.6-10.1The [facility] Physician GroupComment on above:Performed By: #### CBC, BMP ####[place] [address] USAPlatelets (Bld) [#/Vol]274 10*3/jZNayhlv586-782Bnc [facility] Physician Alliance HospitalComment on above:Performed By: #### CBC, BMP ####[place] [address] USARBC (Bld) [#/Vol]3.54 10*6/uLLow3.90-5.60The [facility] Physician GroupComment on above:Performed By: #### CBC, BMP ####[place] [address] USAWhite Blood Count8.6 [CFU]/mLNormal4.1-10.5The [facility] Physician Alliance HospitalComment on above:Performed By: #### CBC, BMP ####[place] [address] [place] Eosinophils [#/volume] in Blood by Automated countOrdered By: Elsie Leonard on 21-93-5539Lmcvnykbjfc (Bld) [#/Vol]0.0 10*3/uLNormal0.0-0.45[facility] CenterComment on above:Performed By: #### CBC, BMP ####[place] [address] USAEosinophils/100 leukocytes in Blood by Automated countOrdered By: Elsie Leonard on 01-05-2025 Eosinophils/100 WBC (Bld)0.1 %Normal.[facility] Medical CenterComment on above:Performed By: #### CBC, BMP ####[place] [address] USALeukocytes [#/volume] in Blood by Automated count Ordered By: Elsie Leonard on 08-87-9978ZYO (Bld) [#/Vol]8.6 10*3/uLNormal 4.1-10.5FUniversity Hospitals Geauga Medical CenterComment on above:Performed By: #### CBC, BMP ####[place] [address] USALymphocytes [#/volume] in Blood by Automated countOrdered By: Elsie Kaelyne on 91-54-6808Rauddhcamim (Bld) [#/Vol]0.4 10*3/uLLow1.00-4.8[facility] Medical CenterComment on above:Performed By: #### CBC, BMP ####[address] [address] USALymphocytes/100 leukocytes in Blood by Automated countOrdered By: Elsie Kaelyne on 01-05-2025 Lymphocytes/100 WBC (Bld)5.1 %Normal.[facility] Medical CenterComment on above:Performed By: #### CBC, BMP ####[address] [address] USAMonocytes [#/volume] in Blood by Automated count Ordered By: Elsie Leonard on 74-37-4472Qfxmtulxj (Bld) [#/Vol]0.1 10*3/uL Normal0.0-0.8[facility] Medical CenterComment on above:Performed By: #### CBC, BMP ####[address] [address] USAMonocytes/100 leukocytes in Blood by Automated countOrdered By: Elsie Leonard on 30-95-0743Pljixjgdv/100 WBC (Bld)1.3 %Normal.[facility] Medical CenterComment on above:Performed By: #### CBC, BMP ####[address] [address] USANeutrophils [#/volume] in Blood by Automated countOrdered By: Elsei Horacio on 01-05-2025 Neutrophils (Bld) [#/Vol]8.1 10*3/uLHigh1.8-7.7FUniversity Hospitals Geauga Medical Center Comment on above:Performed By: #### CBC, BMP ####[address] [address] USANeutrophils/100 leukocytes in Blood by Automated countOrdered By: Elsie Horacio on 27-26-5539Aysheebusio/100 WBC (Bld)93.4 %Normal.[facility] Medical CenterComment on above:Performed By: #### CBC, BMP ####[facility] [address] [place] [address] USANucleated erythrocytes [Presence] in Blood by Automated countOrdered By: Elsie Leonard on 78-60-5856Jxljydvde RBC Auto Ql (Bld)0.0 /100{WBC}0-0.5 [facility] Medical CenterPartial Thromboplastin Timeon 22-32-8225vQNI Coag (Bld) [Time]50.1 sHigh25.1-36.5The [facility] Physician GroupComment on above:Result Comment: A hematocrit value greater than 55% may lead to inaccurate results in coagulation testing. Patients having hematocrit values >55% require a special collection tube for coagulation studies. Please contact the laboratory at [phone] for redraw instructions. PERFORMED BY: [place] [address] PATHOLOGIST DATA ENTRY COORDINATOR REGGIE CASTANEDA M.D.Performed By: #### BMP #### [facility] [address] [place] [address] USAaPTT Coag (Bld) [Time]54.6 sHigh25.1-36.5The [facility] Physician GroupComment on above:Result Comment: A hematocrit value greater than 55% may lead to inaccurate results in coagulation testing. Patients having hematocrit values >55% require a special collection tube for coagulation studies. Please contact the laboratory at [phone] for redraw instructions. PERFORMED BY: [place] [id number] PATHOLOGIST DATA ENTRY COORDINATOR REGGIE CASTANEDA M.D.Performed By: #### BMP #### [facility] [address] [place] [address] USAaPTT Coag (Bld) [Time]40.4 sHigh25.1-36.5The [facility] Physician GroupComment on above:Result Comment: A hematocrit value greater than 55% may lead to inaccurate results in coagulation testing. Patients having hematocrit values >55% require a special collection tube for coagulation studies. Please contact the laboratory at [phone] for redraw instructions. PERFORMED BY: [place] [phone] PATHOLOGIST DATA ENTRY COORDINATOR REGGIE CASTANEDA M.D.Performed By: #### PTT ####[address] [address] USATroponin I High Sensitivityon 70-98-4022Vgajdpdg I High Mskofgsljjz769Ubw scale [address] Physician GroupComment on above:Result Comment: Critical Result : Called to and read back by: TRAVON GUZMAN at: 01/05/2025 12:36:23 by:DIANE The Troponin units of report have been changed to meet the Chest Pain Accreditation requirement, element EC5.M1l2. Troponin units are changed from pg/ml to ng/L. Also, the decimal is removed and results are in whole numbers. PERFORMED BY: [place] [phone] PATHOLOGIST DATA ENTRY COORDINATOR REGGIE CASTANEDA M.D.Performed By: #### CMP, CBC #### [address] [address] USATroponin I High Gpkuxgxqxmz495Ofo scale [address] Physician Alliance HospitalComment on above:Result Comment: Critical Result : Called to and read back by: TRAVON GUZMAN at: 01/05/2025 08:10:30 by:DIANE The Troponin units of report have been changed to meet the Chest Pain Accreditation requirement, element EC5.M1l2. Troponin units are changed from pg/ml to ng/L. Also, the decimal is removed and results are in whole numbers. PERFORMED BY: [place] [phone] PATHOLOGIST DATA ENTRY COORDINATOR REGGIE CASTANEDA M.D.Performed By: #### HS TROP ####[address] [address] USATroponin I High Bjqwgbepxmt618Til scale [address] Physician Alliance HospitalComment on above:Result Comment: Critical Result : Called to and read back by: AMY DEGROOT at: 01/05/2025 04:21:22 by:[id number] The Troponin units of report have been changed to meet the Chest Pain Accreditation requirement, element EC5.M1l2. Troponin units are changed from pg/ml to ng/L. Also, the decimal is removed and results are in whole numbers. PERFORMED BY: [facility] [address] [place] [id number] PATHOLOGIST DATA ENTRY COORDINATOR REGGIE CASTANEDA M.D.Performed By: #### HS TROP ####[facility] [place] [address] USATroponin I.cardiac [Mass/volume] in Serum or Plasma by Detection limit <= 0.01 ng/mLOrdered By: Elsie Leonard on 06-91-0965Hdddtsdy I.cardiac DL <= 0.01 ng/mL [Mass/Vol]398 ng/LCritically high 0-20[facility] Medical CenterComment on above:Critical Result : Called to and read back by: TRAVON GUZMAN at: 01/05/2025 12:36:23 by:KBThe Troponinunits of report have been changed to meet the Chest Pain Accreditation requirement, element EC5.M1l2. Troponin units are changed from pg/ml to ng/L. Also, the decimal is removed and results are in whole numbers.X-ray reportOrdered By: Juliocesar Varela on 06-03-6701Okwpr reportPARKVIEW HEALTH [facility] Main [place] [address] [place] [address] XRay Report Signed Patient: Mary Mcadams MR#: [id number] : 1955 Acct:[id number] Age/Sex: 69 / M ADM Date: 5 Loc: Room: [address] [place] [address] Type: ADM IN Attending Dr: Altaf Jones [...] the upper chest bilaterally. Multiple calcified mediastinal andhilar lymph nodes are noted. There is diffuse interstitial prominence similar to the prior exam. Bibasilar airspace opacities have developed. These are new compared to the prior exam. The bony thoraxis intact. XR/XR chest 1V portable IMPRESSION: New bibasilar airspace opacities. Chronic interstitial changes are noted with pleural thickening similar to the prior exam. Similar calcified mediastinal and hilar lymph nodes are present. Impression dictated by: Juliocesar Varela M.D. 01/05/2025 10:46 AM Dictation Location: [place] [address] Transcribed By: [facility] 01/05/25 104 Dictated By: Juliocesar Varela II, MD 01/05/25 104 Signed By: 01/05/25 [facility] Work Phone: XR chest 1V portableon 21-35-0949RX chest 1V portable [facility] Main [place] [address] [place] [address] XRay Report Signed Patient: Mary Mcadams MR#: [id number] : 1955 Acct:[id number] Age/Sex: 69 / M ADM Date: 01/05/25 Loc: Room: [address] [place] [address] Type: ADM IN Attending Dr: Altaf Jones MD Copies to: MD Cee Carballo DO Ordering Provider: Cee Proctor DO Date of Service: 01/04/25 XR/XR chest 1V portable: DYSPNEA XR chest 1V portable 01/04/2025 10:51 PM SIGNS AND SYMPTOMS: DYSPNEA PROTOCOL: Frontal radiograph of the chest COMPARISON: [...] Varela M.D. 01/05/2025 10:46 AM Dictation Location: [place] [address] Transcribed By: [facility] 01/05/25 1046 Dictated By: Juliocesar Varela II, MD 01/05/25 1044 Signed By: 01/05/25 1046Mercy HospitalAlanine aminotransferase [Enzymatic activity/volume] in Serum or PlasmaOrdered By: Cee Proctor on 97-26-3002BBM [Catalytic activity/Vol]9 U/LNormal707 Gonzalez StreetComment on above:Performed By: #### CBC, CK, HS TROP, BNP, CMP ####[facility] [address] [place] [address] USAAlbumin [Mass/volume] in Serum or Plasma by Bromocresol green (BCG) dye binding metho Ordered By: Cee Proctor on 18-63-3940Kijewwq BCG dye [Mass/Vol]3.8 g/dL3.5-5.7 [facility] Medical CenterAlkaline phosphatase [Enzymatic activity/volume] in Serum or PlasmaOrdered By: Cee Proctor on 65-43-6416TMN [Catalytic activity/Vol]140 U/CXqzq90-484Mjz[address] [place] [address] Comment on above:Performed By: #### CBC, CK, HS TROP, BNP, CMP ####[facility] [address] [place] [address] USAAnti-Xa UF Heparinon 36-24-7597Symk-Xa UF Heparin1.30Off scale high0.30-0.70The [facility] Physician Alliance HospitalComment on above:Result Comment: Critical value result called at 0136 on 01/05/25 Use the aPTT protocol when triglycerides are > 800 mg/dL, total bilirubin is > 20 mg/dL and/or patient has received a DOAC, Fondaparinux or LMWH within 72 hours AND baseline anti-Xa level is > 0.7 units/mL PERFORMED BY: [facility] [address] [place] [id number] PATHOLOGIST DATA ENTRY COORDINATOR REGGIE CASTANEDA M.D.Performed By: #### UFHEP, PT ####[facility] [place] [address] USAArterial Blood Gason 97-84-3255JCL Base Excess-2.4 mmol/LNormal-3.0-3.0The [facility] Physician GroupComment on above:Performed By: #### ABG ####Point of Care testing,ABG Frac Inspired O232 % NormalThe [facility] Physician GroupComment on above:Performed By: #### ABG ####Point of Care testing,ABG Oxygen Content6.8 mmol/LNormal6.6-9.7The [facility] Physician GroupComment on above:Performed By: #### ABG ####Point of Care testing,ABG Oxygen Bddcoiysrv17.7 %Ibjzaw36.0-100.0The [facility] Physician Group Comment on above:Performed By: #### ABG ####Point of Care testing,ABG HDI909.2 mm[Hg]Ellzbj08.0-45.0The [facility] Physician GroupComment on above:Performed By: #### ABG ####Point of Care testing,ABG PH7.60Bavlpd7.35-7.45The [facility] Physician GroupComment on above:Performed By: #### ABG ####Point of Care testing,ABG PO291.5 mm[Hg]Faujop78.0-100.0The [facility] Physician GroupComment on above:Performed By: #### ABG ####Point of Care testing,Respiratory Critical NormalThe [facility] Physician GroupComment on above:Result Comment: Critical Value called on: 01/04/2025 at 22:22 PERFORMED BY: [facility] [address] [place] [address] PATHOLOGIST DATA ENTRY COORDINATOR REGGIE CASTANEDA M.D.Performed By: #### ABG ####Point of Care testing,VBG Draw SiteRigAdventHealth Lake Placid Physician GroupComment on above:Performed By: #### ABG ####Point of Care testing,Arterial Blood GasOrdered By: Cee Proctor on 77-44-1281PH9 [Moles/Vol]24.3 mmol/MNctuub20.0-27.0[facility] Medical CenterComment on above:Performed By: #### ABG ####Point of Care testing,HCO3 (Bld) [Moles/Vol]23.0 mmol/IIbphsl51.0-29.0[facility] Medical CenterComment on above:Performed By: #### ABG ####Point of Care testing, Aspartate aminotransferase [Enzymatic activity/volume] in Serum or PlasmaOrdered By: Cee Proctor on 92-69-7075PXG [Catalytic activity/Vol]21 U/QQmhxtr36-90 [facility] Medical CenterComment on above:Performed By: #### CBC, CK, HS TROP, BNP, CMP ####[place] [address] [place] [id number] USABNP ser/plasOrdered By: Cee Proctor on 73-55-2954Uzjberztfzq peptide B (Bld) [Mass/Vol]268.0 pg/mLGreenbrier Valley Medical Center5-100[facility] Medical CenterComment on above:Result Comment: PERFORMED BY: [place] [address] [place] [address] PATHOLOGIST DATA ENTRY COORDINATOR REGGIE CASTANEDA M.D.Performed By: #### CBC, CK, HS TROP, BNP, CMP ####[address] [address] USABasophils [#/volume] in Blood by Automated countOrdered By: Cee Proctor on 37-09-6755Ixyydkykd (Bld) [#/Vol]0.1 10*3/uLNormal0.0-0.2FUniversity Hospitals Geauga Medical CenterComment on above:Result Comment: PERFORMED BY: [facility] [address] [place] [id number] PATHOLOGIST DATA ENTRY COORDINATOR REGGIE CASTANEDA M.D.Performed By: #### CBC, CK, HS TROP, BNP, CMP ####[place] [address] USABasophils/100 leukocytes in Blood by Automated countOrdered By: Nidgreer Proctor on 01-04-2025 Basophils/100 WBC (Bld)0.6 %Normal.[facility] Medical CenterComment on above:Performed By: #### CBC, CK, HS TROP, BNP, CMP ####[place] [address] USABilirubin.total [Mass/volume] in Serum or PlasmaOrdered By: Faustoal Chorubinaa on 21-39-4134Oqfyzarpi [Mass/Vol]0.4 mg/dLNormal0.3-1.0[facility] Medical CenterComment on above:Performed By: #### CBC, CK, HS TROP, BNP, CMP ####[place] [address] USACalcium [Mass/volume] in Serum or PlasmaOrdered By: Faustoal Chogael on 88-99-4382Vfwhyeq [Mass/Vol]8.8 mg/dLNormal8.6-10.3FUniversity Hospitals Geauga Medical CenterComment on above:Performed By: #### CBC, CK, HS TROP, BNP, CMP ####[place] [address] USACarbon dioxide, total [Moles/volume] in Serum or PlasmaOrdered By: Nidal Choutigista on 98-05-8815XU2 [Moles/Vol]25.3 mmol/IMtwuht22.0-31.0[facility] Medical CenterComment on above:Performed By: #### CBC, CK, HS TROP, BNP, CMP ####[place] [address] [place] Chloride [Moles/volume] in Serum or PlasmaOrdered By: Nidal Choujaa on 26-83-4720Xuxoizwd [Moles/Vol]104 mmol/ZYooqnv84-219QpgcpkvebKettering Health Behavioral Medical CenterComment on above:Performed By: #### CBC, CK, HS TROP, BNP, CMP ####[address] Complete Blood Count Auto Diffon 65-07-1515Feac Corpuscular HGB Conc33.4 g/dL Jltlsp20.5-35.6The [facility] Physician GroupComment on above:Performed By: #### CBC, CK, HS TROP, BNP, CMP ####[place] [address] USAMonocytes/100 WBC (Bld)17.47 %Normal0.00-20.00The [facility] Physician GroupComment on above:Performed By: #### CBC, CK, HS TROP, BNP, CMP ####[place] [address] USANRBC%0.1 /100{WBC}Normal0-0.5The [facility] Physician GroupComment on above: Performed By: #### CBC, CK, HS TROP, BNP, CMP ####[place] [address] USAWhite Blood Count10.2 [CFU]/mLNormal 4.1-10.5The [facility] Physician GroupComment on above:Performed By: #### CBC, CK, HS TROP, BNP, CMP ####[place] [id number] USAComprehensive Metabolic Panelon 52-91-2748Yscgkur [Mass/Vol] 3.8 g/dLNormal3.5-5.7The [facility] Physician GroupComment on above:Performed By: #### CBC, CK, HS TROP, BNP, CMP ####[place] [address] USACreatinine Clr Calc Zmbwchmc55.60NormalThe [facility] Physician GroupComment on above:Result Comment: PERFORMED BY: [facility] [address] [place] [address] PATHOLOGIST DATA ENTRY COORDINATOR REGGIE CASTANEDA M.D.Performed By: #### CBC, CK, HS TROP, BNP, CMP ####[place] [address] [place] [address] USAGFR/1.73 sq M.predicted MDRD (S/P/Bld) [Vol rate/Area]mL/min/{1.73_m2}NormalThe [facility] Physician GroupComment on above:Performed By: #### CBC, CK, HS TROP, BNP, CMP ####[place] [address] [place] Creatine kinase [Enzymatic activity/volume] in Serum or PlasmaOrdered By: Cee Proctor on 76-04-5947GZ [Catalytic activity/Vol]30 U/LFvvzdi88-335UtiwosdbsKettering Health Behavioral Medical CenterComment on above:Performed By: #### CBC, CK, HS TROP, BNP, CMP ####[place] [address] USACreatinine [Mass/volume] in Serum or PlasmaOrdered By: Cee Proctor on 76-33-9942Rgnhytgjuj [Mass/Vol]0.88 mg/dLNormal0.70-1.30[facility] Medical CenterComment on above:Performed By: #### CBC, CK, HS TROP, BNP, CMP ####[address] [address] USAECG 12 lead ECGon 81-01-2259LYQ 12 lead ECGPARKVIEW [facility]ALTH [facility] Main [place] [address] [place] [address] Electrocardiograph Report Signed Patient: Mary Mcadams MR#: [id number] : 1955 Acct:[id number] Age/Sex: 69 / M ADM Date: 01/05/25 Loc: Room: [address] [place] [address] Type: ADM IN Attending Dr: Jostin Larose DO Ordering Provider: Cee Proctor DO Date of Service: 01/04/25 ECG/ECG 12 lead ECG: DYSPNEA Copies to: Test Reason : Blood Pressure : 93/66 mmHG Vent. Rate : 113 BPM Atrial Rate : 113 BPM P-R Int : 168 ms QRS Dur : 134 ms QT Int : 366 ms P-R-T Axes : * -42 132 degrees QTcB Int : 502 ms Sinus tachycardia Left axis deviation Nonspecific intraventricular block Cannot rule out Anterior infarct , age undetermined T wave abnormality, consider lateral ischemia Abnormal ECG When compared with ECG of 10-Nov-2024 23:25, premature atrial complexes are no longer present T wave inversion more evident in Anterolateral leads Confirmed by Andres Herrera ([id number]) on 01/06/2025 11:21:26 AM Referred By: Electronically Signed By: Andres Herrera Transcribed By: MUS Signed By Andres Herrera MD 01/06/25 1121[facility] GroupEosinophils [#/volume] in Blood by Automated countOrdered By: Cee Proctor on 59-73-1970Asuedhyktah (Bld) [#/Vol]0.3 10*3/uLNormal0.0-0.45[facility] CenterComment on above:Performed By: #### CBC, CK, HS TROP, BNP, CMP ####[place] [id number] USAEosinophils/100 leukocytes in Blood by Automated countOrdered By: Cee Proctor on 28-40-8475Olcgqnyfsqy/100 WBC (Bld)3.2 %Normal.[facility] Medical CenterComment on above:Performed By: #### CBC, CK, HS TROP, BNP, CMP ####[place] [id number] USAErythrocyte distribution width [Ratio] by Automated countOrdered By: Cee Proctor on 21-56-0351Uiaskhndtff distribution width (RBC) [Ratio]17.5 %High12.0-14.8[facility] Medical CenterComment on above:Performed By: #### CBC, CK, HS TROP, BNP, CMP ####[place] [id number] USAErythrocytes [#/volume] in Blood by Automated countOrdered By: Cee Proctor on 19-48-3909TJM (Bld) [#/Vol] 3.80 10*6/uLLow3.90-5.60[facility] CenterComment on above: Performed By: #### CBC, CK, HS TROP, BNP, CMP ####[place] [id number] USAGlomerular filtration rate [Volume Rate/Area] in Serum, Plasma or Blood by CreatinineOrdered By: Cee Proctor on 42-85-5162Vwtlptgnzt filtration rate [Volume Rate/Area] in Serum, Plasma or Blood by Creatinine> 60.0 mL/MinKettering Health Behavioral Medical CenterGlucose [Mass/volume] in Serum or PlasmaOrdered By: Cee Proctor on 17-42-6104Fwieoby [Mass/Vol]155 mg/aAAqlc02-118IewdxctwmKettering Health Behavioral Medical CenterComment on above: ADA recommended reference rangeRandom Glucose Reference Range is dependent on time and content of last meal. Glucose of more than 200 mg/dL in a nonstressed, ambulatory subject supports the diagnosisof Diabetes Mellitus.Result Comment: Random Glucose Reference Range is dependent on time and content of last meal. Glucose of more than 200 mg/dL in a nonstressed, ambulatory subject supports the diagnosis of Diabetes Mellitus. ADA recommended reference rangePerformed By: #### CBC, CK, HS TROP, BNP, CMP ####[place] [id number] [place] Hematocrit [Volume Fraction] of Blood by Automated countOrdered By: Cee Proctor on 11-46-2908Slkwxzudix (Bld) [Volume fraction]31.7 %Low38.8-50.0 [facility] CenterComment on above:Performed By: #### CBC, CK, HS TROP, BNP, CMP ####[place] [address] USAHemoglobin [Mass/volume] in BloodOrdered By: Cee Proctor on 53-27-7176Waqzjwrrmp (Bld) [Mass/Vol]10.6 g/dLLow13.0-17.0[facility] CenterComment on above:Performed By: #### CBC, CK, HS TROP, BNP, CMP ####[place] [address] USAHeparin anti-Xa unfractionatedOrdered By: Cee Proctor on 09-92-8500Augwhon unfractionated Chromogenic method Qn (PPP)1.30 [IU]/mLCritically high0.30-0.70 [facility] CenterComment on above:Critical valueresult calledat 0136 on 01/05/25 Use the aPTT protocol when triglycerides are > 800 mg/dL,total bilirubin is > 20 mg/dL and/or patient has received aDOAC, Fondaparinux or LMWH within 72 hours AND baselineanti-Xa level is > 0.7 units/mLINR in Platelet poor plasma by Coagulation assayOrdered By: Cee Proctor on 22-13-5750JZI Coag (PPP) [Relative time]1.7 {INR}NormalKettering Health Behavioral Medical CenterComment on above:INR Therapeutic Range A) Pre- and Peroperative OAT started two weeks before surgery. NOT HIP SURGERY: 1.5 - 2.5 HIP SURGERY: 2 - 3B) Primary and secondary prevention of venous THROMBOSIS: 2 - 3C) Active venous thrombosis, pulmonary embolismand prevention of recurrent venous thrombosis: 2 - 3D) Preve ntion of arterial thromboembolismincluding patients with mechanical heart valves: 3 - 4.5Result Comment: INR Therapeutic Range A) Pre- and [...] patients with mechanical heart valves: 3 - 4.5Performed By: #### UFHEP, PT ####[facility] [address] [place] [address] USALeukocytes [#/volume] corrected for nucleated erythrocytes in Blood by Automated counOrdered By: Cee Proctor on 37-38-5236VCX corrected for nucl RBC Auto (Bld) [#/Vol]10.2 10*3/uL4.1-10.5FUniversity Hospitals Geauga Medical Center Leukocytes [#/volume] in Blood by Automated countOrdered By: Cee Proctor on 17-40-6048ZFS (Bld) [#/Vol]10.2 10*3/uLNormal4.1-10.5FUniversity Hospitals Geauga Medical CenterComment on above:Performed By: #### CBC, CK, HS TROP, BNP, CMP ####[place] [address] Lymphocytes [#/volume] in Blood by Automated countOrdered By: Cee Proctor on 05-99-1649Bteqnggvjnw (Bld) [#/Vol]1.2 10*3/uLNormal1.00-4.8[facility] CenterComment on above:Performed By: #### CBC, CK, HS TROP, BNP, CMP ####[address] Lymphocytes/100 leukocytes in Blood by Automated countOrdered By: Cee Proctor on 58-58-2563Gxuagsoyncu/100 WBC (Bld)12.3 %Normal.[facility] Medical CenterComment on above:Performed By: #### CBC, CK, HS TROP, BNP, CMP ####[place] [id number] [facility] [Entitic mass] by Automated countOrdered By: Cee Proctor on 21-40-4866QBI (RBC) [Entitic mass]27.8 qiStalex42.5-35.2FUniversity Hospitals Geauga Medical Center Comment on above:Performed By: #### CBC, CK, HS TROP, BNP, CMP ####[place] [id number] [facility] Auto (RBC) [Mass/Vol]Ordered By: Cee Proctor on 74-77-2657PYAD (RBC) [Mass/Vol]33.4 g/dL 32.5-35.6FTriHealth Good Samaritan HospitalV [Entitic volume] by Automated countOrdered By: Cee Proctor on 82-41-3389BVQ (RBC) [Entitic vol]83.3 fLLow 83.5-101[facility] CenterComment on above:Performed By: #### CBC, CK, HS TROP, BNP, CMP ####[address] [address] USAMonocyte distribution width [Entitic volume] in Blood by AutomatedOrdered By: Cee Proctor on 90-79-3035Slyuptit distribution width Auto (Bld) [Entitic vol]17.47 %0.00-20.00[facility] Monocytes [#/volume] in Blood by Automated countOrdered By: Nidal Hitesh on 71-45-6453Ohkikzrkg (Bld) [#/Vol]0.6 10*3/uLNormal0.0-0.8[facility] CenterComment on above:Performed By: #### CBC, CK, HS TROP, BNP, CMP ####[place] [address] [place] Monocytes/100 leukocytes in Blood by Automated countOrdered By: Cee Proctor on 13-61-4651Lcmvevkrw/100 WBC (Bld)6.2 %Normal.[facility] Comment on above:Performed By: #### CBC, CK, HS TROP, BNP, CMP ####[address] [address] USANeutrophils [#/volume] in Blood by Automated countOrdered By: Cee Proctor on 01-04-2025 Neutrophils (Bld) [#/Vol]7.9 10*3/uLHigh1.8-7.7FUniversity Hospitals Geauga Medical Center Comment on above:Performed By: #### CBC, CK, HS TROP, BNP, CMP ####[address] [address] USANeutrophils/100 leukocytes in Blood by Automated countOrdered By: Cee Proctor on 01-04-2025 Neutrophils/100 WBC (Bld)77.7 %Normal.[facility] CenterComment on above:Performed By: #### CBC, CK, HS TROP, BNP, CMP ####[address] [address] USANo Panel InformationOrdered By: Cee Proctor on 56-32-5949Lnntzriz Blood Base Excess-2.4 mmol/L-3.0-3.0 [facility] Medical CenterArterial Blood Oxygen Content6.8 mmol/L6.6-9.7 [facility] Medical CenterArterial Blood Oxygen Daigbfnrxb49.7 % 95.0-100.0[facility] Medical CenterArterial Blood Partial Pressure CO2 42.2 mm[Hg]35.0-45.0[facility] Medical CenterArterial Blood Partial Pressure O291.5 mm[Hg]80.0-100.0[facility] Medical CenterArterial Blood pH7.357.35-7.45[facility] Medical CenterBlood Gas Critical ValueSee UC West Chester HospitalComment on above:Critical Value called on: 01/04/2025 at 22:22Blood Gas Sample SiteRight [facility] HospitalFiO232 %[facility] Medical CenterPharmacy Creatinine Clearance (Chem69.60[facility] CenterNucleated erythrocytes [Presence] in Blood by Automated countOrdered By: Cee Proctor on 01-04-2025 Nucleated RBC Auto Ql (Bld)0.1 /100{WBC}0-0.5FUniversity Hospitals Geauga Medical Center Platelet mean volume [Entitic volume] in Blood by Automated countOrdered By: Cee Proctor on 35-42-0947Hecdmjsj mean volume (Bld) [Entitic vol]7.6 fLNormal 6.6-10.1FUniversity Hospitals Geauga Medical CenterComment on above:Performed By: #### CBC, CK, HS TROP, BNP, CMP ####[facility] [address] [place] [address] USAPlatelets [#/volume] in Blood by Automated count Ordered By: Cee Proctor on 10-94-8050Tpsczofdp (Bld) [#/Vol]281 10*3/uLNormal 150-450[facility] CenterComment on above:Performed By: #### CBC, CK, HS TROP, BNP, CMP ####[facility] [address] [place] [address] USAPotassium [Moles/volume] in Serum or PlasmaOrdered By: Cee Proctor on 12-48-0521Ztfcrkkof [Moles/Vol]3.6 mmol/LNormal3.5-5.1FUniversity Hospitals Geauga Medical CenterComment on above:Performed By: #### CBC, CK, HS TROP, BNP, CMP ####[place] [address] [place] [address] USAProtein [Mass/volume] in Serum or PlasmaOrdered By: Cee Proctor on 68-14-6134Zxllboc [Mass/Vol]6.6 g/dLNormal6.4-8.9[facility] CenterComment on above:Performed By: #### CBC, CK, HS TROP, BNP, CMP ####[place] [id number] [place] Prothrombin time (PT)Ordered By: Cee Proctor on 91-93-1792UF Coag (PPP) [Time] 18.9 sHigh9.0-12.9[facility] Medical CenterComment on above:A hematocrit value greater than 55% may lead to inaccurate results in coagulation testing. Patientshaving hematocrit values >55% require a special collection tube for coagulation studies. Please contact the laboratory at [phone] for redraw instructions.Result Comment: A hematocrit value greater than 55% may lead to inaccurate results in coagulation testing. Patients having hematocrit values >55% require a special collection tube for coagulation studies. Please contact the laboratory at [phone] for redraw instructions.Performed By: #### UFHEP, PT ####[address] [address] USASerum globulin measurement by calculation (mass/volume)Ordered By: Cee Proctor on 59-43-9876Uwbuobdz (S) [Mass/Vol]2.8 g/dLNoSumma Health Barberton CampusComment on above:Performed By: #### CBC, CK, HS TROP, BNP, CMP ####[address] [address] USASerum or plasma albumin/globulin mass ratioOrdered By: Cee Proctor on 28-57-6048Jelmile/Globulin [Mass ratio]1.4 {ratio}Normal [facility] CenterComment on above:Performed By: #### CBC, CK, HS TROP, BNP, CMP ####[place] [address] [place] [address] USASerum or plasma anion gap determinationOrdered By: Cee Proctor on 14-29-0586Ncjfh gap [Moles/Vol]11.3 mmol/LNormal6.0-15.0[facility] CenterComment on above:Performed By: #### CBC, CK, HS TROP, BNP, CMP ####[place] [address] [place] [address] USASodium [Moles/volume] in Serum or PlasmaOrdered By: Cee Proctor on 00-20-5615Iweija [Moles/Vol]137 mmol/YZvfwya092-522HxsxbothsKettering Health Behavioral Medical CenterComment on above:Performed By: #### CBC, CK, HS TROP, BNP, CMP ####[place] [address] [place] [address] USATroponin I High Sensitivityon 98-46-0066Srzbvxpz I High Rffogjbvmec611Sbb scale high0-20The [facility] Physician GroupComment on above:Result Comment: Critical Result : Called to and read back by: VALENTIN CHAVEZ at: 01/05/2025 00:41:06 by:[id number] The Troponin units of report have been changed to meet the Chest Pain Accreditation requirement, element EC5.M1l2. Troponin units are changed from pg/ml to ng/L. Also, the decimal is removed and results are in whole numbers. PERFORMED BY: [address] [address] PATHOLOGIST DATA ENTRY COORDINATOR REGGIE CASTANEDA M.D.Performed By: #### CMP, CBC #### [place] [id number] USATroponin I High Szkekvrttxi88Lhop7-34Ehj [facility] Physician GroupComment on above:Result Comment: The Troponin units of report have been changed to meet the Chest Pain Accreditation requirement, element EC5.M1l2. Troponin units are changed from pg/ml to ng/L. Also, the decimal is removed and results are in whole numbers. PERFORMED BY: [facility] [address] [place] [address] PATHOLOGIST DATA ENTRY COORDINATOR REGGIE CASTANEDA M.D.Performed By: #### CBC, CK, HS TROP, BNP, CMP ####[address] [address] USATroponin I.cardiac [Mass/volume] in Serum or Plasma by Detection limit <= 0.01 ng/mLOrdered By: Cee Proctor on 86-55-3191Jrrdqmhn I.cardiac DL <= 0.01 ng/mL [Mass/Vol]135 ng/LCritically high0-[facility] CenterComment on above: Critical Result : Called to and read back by: VALENTIN CHAVEZ at: 01/05/2025 00:41:06 by:[id number] units of report have been changed to meet the Chest Pain Accreditation requirement, element EC5.M1l2. Troponin units are changed from pg/ml to ng/L. Also, the decimal is removed and results are in whole numbers.Urea nitrogen [Mass/volume] in Serum or PlasmaOrdered By: Cee Proctor on 73-39-3337Bkxv nitrogen [Mass/Vol]11 mg/dLNormal12-06[facility] CenterComment on above:Performed By: #### CBC, CK, HS TROP, BNP, CMP ####[address] [address] USABasic Metabolic Panelon 54-02-7781Rkwhlqtket Clr Calc Kplvpvlh47.31NoWakeMed Cary Hospital Physician GroupComment on above:Result Comment: PERFORMED BY: [facility] [address] [place] [address] PATHOLOGIST DATA ENTRY COORDINATOR REGGIE CASTANEDA M.D.Performed By: #### CBC, BMP ####[address] [address] USAGFR/1.73 sq M.predicted MDRD (S/P/Bld) [Vol rate/Area]mL/min/{1.73_m2}NormalThe [facility] Physician GroupComment on above:Performed By: #### CBC, BMP ####[address] [address] USABasophils [#/volume] in Blood by Automated count Ordered By: Silvano Reed on 14-57-9008Fortvhbrc (Bld) [#/Vol]0.0 10*3/uL Normal0.0-0.2FUniversity Hospitals Geauga Medical CenterComment on above:Result Comment: PERFORMED BY: [facility] [address] [place] [address] PATHOLOGIST DATA ENTRY COORDINATOR REGGIE CASTANEDA M.D.Performed By: #### CBC, BMP ####[address] [address] USABasophils/100 leukocytes in Blood by Automated countOrdered By: Silvano Reed on 94-53-7127Ruuswzear/100 WBC (Bld)0.1 %Normal.[facility] Medical CenterComment on above:Performed By: #### CBC, BMP ####[address] [address] USACalcium [Mass/volume] in Serum or PlasmaOrdered By: Silvano Reed on 77-40-4045Aoilaaj [Mass/Vol]9.1 mg/dLNormal8.6-10.3FUniversity Hospitals Geauga Medical CenterComment on above:Performed By: #### CBC, BMP ####[address] [address] USACarbon dioxide, total [Moles/volume] in Serum or PlasmaOrdered By: Silvano Reed on 84-84-1260XS1 [Moles/Vol]28.1 mmol/IUzloxe02.0-31.0[facility] CenterComment on above:Performed By: #### CBC, BMP ####[address] [address] USAChloride [Moles/volume] in Serum or PlasmaOrdered By: Silvano Reed on 11-12-2024 Chloride [Moles/Vol]100 mmol/LBdyais79-428WlsqenljdKettering Health Behavioral Medical Center Comment on above:Performed By: #### CBC, BMP ####[address] [address] USAComplete Blood Count Auto Diffon 19-63-8131Ehaj Corpuscular HGB Conc32.7 g/vCAnnfvp61.5-35.6The [facility] Physician Alliance HospitalComment on above:Performed By: #### CBC, BMP ####[address] [address] USANRBC%0.0 /100{WBC} Normal0-0.5The [facility] Physician Alliance HospitalComment on above:Performed By: #### CBC, BMP ####[place] [id number] [facility] White Blood Count18.4 [CFU]/mLHigh4.1-10.5The [facility] Physician Alliance HospitalComment on above:Performed By: #### CBC, BMP ####[address] [address] USACreatinine [Mass/volume] in Serum or Plasma Ordered By: Silvano Reed on 26-78-6728Csrgvhmolh [Mass/Vol]0.92 mg/dL Normal0.70-1.30[facility] CenterComment on above:Performed By: #### CBC, BMP ####[place] [address] USAEosinophils [#/volume] in Blood by Automated countOrdered By: Silvano Reed on 31-50-9933Toatieipjtp (Bld) [#/Vol]0.0 10*3/uLNormal 0.0-0.45[facility] CenterComment on above:Performed By: #### CBC, BMP ####[address] [address] USAEosinophils/100 leukocytes in Blood by Automated countOrdered By: Silvano Reed on 71-45-0029Bskgpyabjwp/100 WBC (Bld)0.0 %Normal.[facility] Medical CenterComment on above:Performed By: #### CBC, BMP ####[address] [address] USAErythrocyte distribution width [Ratio] by Automated countOrdered By: Silvano Reed on 59-36-7927Dbbpucyjeez distribution width (RBC) [Ratio]16.5 %High12.0-14.8 [facility] CenterComment on above:Performed By: #### CBC, BMP ####[address] [address] [place] Erythrocytes [#/volume] in Blood by Automated countOrdered By: Silvano Reed on 91-47-4413MUH (Bld) [#/Vol]3.34 10*6/uLLow3.90-5.60[facility] CenterComment on above:Performed By: #### CBC, BMP ####[address] [address] USAGlucose [Mass/volume] in Serum or PlasmaOrdered By: Silvano Reed on 11-12-2024 Glucose [Mass/Vol]144 mg/jBNnps99-861WvsnqliqnKettering Health Behavioral Medical CenterComment on above:ADA recommended reference rangeRandom Glucose Reference Range is dependent on time and content of last meal. Glucose of more than 200 mg/dL in a nonstressed, ambulatory subject supports the diagnosisof Diabetes Mellitus. Result Comment: Random Glucose Reference Range is dependent on time and content of last meal. Glucose of more than 200 mg/dL in a nonstressed, ambulatory subject supports the diagnosis of Diabetes Mellitus. ADA recommended reference rangePerformed By: #### CBC, BMP ####[address] [address] USAHematocrit [Volume Fraction] of Blood by Automated countOrdered By: Silvano Reed on 75-64-0107Luklnkhhzq (Bld) [Volume fraction]27.0 %Low38.8-50.0[facility] CenterComment on above:Performed By: #### CBC, BMP ####[address] [address] USAHemoglobin [Mass/volume] in BloodOrdered By: Silvano Reed on 63-03-0873Qsffbabjhb (Bld) [Mass/Vol]8.8 g/dLLow13.0-17.0[facility] CenterComment on above:Performed By: #### CBC, BMP ####[address] [address] USALeukocytes [#/volume] corrected for nucleated erythrocytes in Blood by Automated counOrdered By: Silvano Reed on 05-15-6947GHU corrected for nucl RBC Auto (Bld) [#/Vol]18.4 10*3/uLHigh4.1-10.5 [facility] CenterLeukocytes [#/volume] in Blood by Automated countOrdered By: Silvano Reed on 93-28-6766NYY (Bld) [#/Vol]18.4 10*3/uL High4.1-10.5FUniversity Hospitals Geauga Medical CenterComment on above:Performed By: #### CBC, BMP ####[address] [address] USALymphocytes [#/volume] in Blood by Automated countOrdered By: Silvano Reed on 96-67-4359Xfxicvwwktr (Bld) [#/Vol]0.7 10*3/uLLow1.00-4.8[facility] CenterComment on above:Performed By: #### CBC, BMP ####[address] [address] [place] Lymphocytes/100 leukocytes in Blood by Automated countOrdered By: Silvano Reed on 46-76-6605Lqboadlgmwc/100 WBC (Bld)4.1 %Normal.[facility] CenterComment on above:Performed By: #### CBC, BMP ####[address] [address] USAMCH [Entitic mass] by Automated countOrdered By: Silvano Reed on 98-85-7025MPR (RBC) [Entitic mass]26.5 pgLow27.5-35.2FUniversity Hospitals Geauga Medical CenterComment on above: Performed By: #### CBC, BMP ####[address] [address] [facility] Auto (RBC) [Mass/Vol]Ordered By: Silvano Reed on 99-81-4297RWXN (RBC) [Mass/Vol]32.7 g/dL32.5-35.6FUniversity Hospitals Geauga Medical CenterMCV [Entitic volume] by Automated countOrdered By: Silvano Reed on 91-85-1638DAS (RBC) [Entitic vol]80.9 fLLow83.5-101[facility] CenterComment on above:Performed By: #### CBC, BMP ####[place] [id number] [place] Monocytes [#/volume] in Blood by Automated countOrdered By: Silvano Reed on 37-80-1892Ewbzauous (Bld) [#/Vol]0.5 10*3/uLNormal0.0-0.8[facility] CenterComment on above:Performed By: #### CBC, BMP ####[address] [address] USAMonocytes/100 leukocytes in Blood by Automated countOrdered By: Silvano Reed on 03-52-2777Graohimos/100 WBC (Bld)2.8 %Normal.[facility] Comment on above:Performed By: #### CBC, BMP ####[address] [address] USANeutrophils [#/volume] in Blood by Automated countOrdered By: Silvano Reed on 78-18-0288Ovychaoirzy (Bld) [#/Vol]17.1 10*3/uLHigh1.8-7.7FUniversity Hospitals Geauga Medical CenterComment on above: Performed By: #### CBC, BMP ####[facility] [place] [address] USANeutrophils/100 leukocytes in Blood by Automated countOrdered By: Silvano Reed on 69-24-0811Ztjbxbguogr/100 WBC (Bld)93.0 %Normal.[facility] CenterComment on above:Performed By: #### CBC, BMP ####[address] [address] USANo Panel InformationOrdered By: Silvano Reed on 98-22-9325Fhqtiyazs GFR (CKD-EPI)> 60.0 mL/MinKettering Health Behavioral Medical CenterPharmacy Creatinine Clearance (Chem65.31[facility] Medical CenterNucleated erythrocytes [Presence] in Blood by Automated countOrdered By: Silvano Reed on 01-64-5538Ifpgiszsn RBC Auto Ql (Bld)0.0 /100{WBC}0-0.5FUniversity Hospitals Geauga Medical CenterPlatelet mean volume [Entitic volume] in Blood by Automated count Ordered By: Silvano Reed on 20-66-6315Lnkzmniu mean volume (Bld) [Entitic vol]7.9 fLNormal6.6-10.1FUniversity Hospitals Geauga Medical CenterComment on above:Performed By: #### CBC, BMP ####[place] [address] [place] [address] USAPlatelets [#/volume] in Blood by Automated count Ordered By: Silvano Reed on 36-11-4159Xvymgbzpl (Bld) [#/Vol]273 10*3/uL Womgtn596-955GkvsizmznKettering Health Behavioral Medical CenterComment on above:Performed By: #### CBC, BMP ####[address] [address] USAPotassium [Moles/volume] in Serum or PlasmaOrdered By: Silvano Reed on 78-07-5623Ptxamatby [Moles/Vol]4.1 mmol/LNormal3.5-5.1FUniversity Hospitals Geauga Medical CenterComment on above:Performed By: #### CBC, BMP ####[place] [address] [place] [id number] USASerum or plasma anion gap determinationOrdered By: Silvano Reed on 11-12-2024 Anion gap [Moles/Vol]11.0 mmol/LNormal6.0-15.0[facility] Comment on above:Performed By: #### CBC, BMP ####[place] [id number] USASodium [Moles/volume] in Serum or PlasmaOrdered By: Silvano Reed on 81-91-5805Affxkg [Moles/Vol]135 mmol/L Mmj524-116BfemettpiKettering Health Behavioral Medical CenterComment on above:Performed By: #### CBC, BMP ####[place] [address] USAUrea nitrogen [Mass/volume] in Serum or PlasmaOrdered By: Silvano Reed on 22-81-8340Cnuw nitrogen [Mass/Vol]22 mg/dLNormal7-25[facility] CenterComment on above:Performed By: #### CBC, BMP ####[place] [address] [place] Appearance of UrineOrdered By: Silvano Reed on 95-47-8677Fxaynviqtn (U) ClearNormalClearKettering Health Behavioral Medical CenterComment on above:Order Comment: Name Collection Type:: Straight CatheterPerformed By: #### ADDONUAPLUS #### [facility] [address] [place] [address] USABacteria [Presence] in Urine by AutomatedOrdered By: Silvano Reed on 43-40-1948Danimiab Auto Ql (U)Rare [HPF]None Seen [facility] CenterBilirubin Test strip Ql (U)Ordered By: Silvano Reed on 77-32-5214Ylgtvthgw Ql (U)NegativeNegativeKettering Health Behavioral Medical CenterColor of Urine by AutoOrdered By: Silvano Reed on 60-46-3513Girkt (U)Light-yellowNormalYellowKettering Health Behavioral [facility] Comment on above:Order Comment: Name Collection Type:: Straight Catheter Performed By: #### ADDONUAPLUS #### [facility] [address] [place] [address] USADipstick and Microscopicon 54-66-5800Muolsboc,UrineRare NormalNone SeenThe [facility] Physician GroupComment on above:Order Comment: Name Collection Type:: Straight CatheterPerformed By: #### ADDONUAPLUS #### [place] [address] USABilirubin,UrineNegativeNormalNegativeThe [facility] Physician GroupComment on above:Order Comment: Name Collection Type:: Straight CatheterPerformed By: #### ADDONUAPLUS #### [place] [address] USAGlucose Ql (U)50 mg/dLNormalNormalThe [facility] Physician GroupComment on above:Order Comment: Name Collection Type:: Straight Catheter Performed By: #### ADDONUAPLUS #### [place] [address] USAHyaline Casts,Wjgwf2-30Cjmjjh5-1Iyt [facility] Physician GroupComment on above:Order Comment: Name Collection Type:: Straight Catheter Performed By: #### ADDONUAPLUS #### [place] [address] USAMucus,UrineRareNormalThe [facility] Physician GroupComment on above:Order Comment: Name Collection Type:: Straight CatheterResult Comment: PERFORMED BY: [place] [address] PATHOLOGIST DATA ENTRY COORDINATOR REGGIE CASTANEDA M.D.Performed By: #### ADDONUAPLUS #### [place] [address] USANitrite,UrinePositiveNormalNegativeThe [facility] Physician GroupComment on above:Order Comment: Name Collection Type:: Straight Catheter Performed By: #### ADDONUAPLUS #### [place] [address] USAOccult Blood,UrineTraceNormalNegativeThe [facility] Physician GroupComment on above:Order Comment: Name Collection Type:: Straight CatheterResult Comment: PERFORMED BY: [place] [address] PATHOLOGIST DATA ENTRY COORDINATOR REGGIE CASTANEDA M.D.Performed By: #### ADDONUAPLUS #### [place] [address] USAProtein,UrineNegativeNormalNegativeThe [facility] Physician GroupComment on above:Order Comment: Name Collection Type:: Straight Catheter Performed By: #### ADDONUAPLUS #### [place] [address] USARBC,Gidis9-5Yejdyo5-7Wib [facility] Physician GroupComment on above:Order Comment: Name Collection Type:: Straight CatheterPerformed By: #### ADDONUAPLUS #### [place] [address] USASpecificy [place],Urine1.995Wnctdp8.001-1.030The [facility] Physician GroupComment on above:Order Comment: Name Collection Type:: Straight CatheterPerformed By: #### ADDONUAPLUS #### [place] [address] USAUrobilinogen,UrineNormalNormalNormalThe [facility] Physician GroupComment on above:Order Comment: Name Collection Type:: Straight CatheterPerformed By: #### ADDONUAPLUS #### [place] [address] USAWBC,Vdizh29-04Wypfkg9-0Yjp [facility] Group Comment on above:Order Comment: Name Collection Type:: Straight Catheter Performed By: #### ADDONUAPLUS #### [place] [address] USAEpithelial cells.squamous [#/area] in Urine sediment by Automated countOrdered By: Silvano Reed on 06-31-7189Iklaveugnh cells.squamous Auto (Urine sed) [#/Area]N/AFUniversity Hospitals Geauga Medical Center Erythrocytes [#/area] in Urine sediment by Automated countOrdered By: Silvano Reed on 71-04-1348IBD Auto (Urine sed) [#/Area]1-2 [HPF]0-4FUniversity Hospitals Geauga Medical CenterGlucose [Mass/volume] in Urine by Test stripOrdered By: Silvano Reed on 60-55-7651Svliipq Test strip (U) [Mass/Vol]50 mg/dLHigh NormalKettering Health Behavioral Medical CenterHemoglobin Test strip Ql (U)Ordered By: Silvano Reed on 90-79-5737Kskhqyjqss Ql (U)TraceHighNegChillicothe HospitalHyaline casts [#/area] in Urine sediment by Automated countOrdered By: Silvano Reed on 81-32-5591Dolxdct casts Auto (Urine sed) [#/Area]9-19 [LPF]High0-8[facility] Behavioral Medical CenterKetones [Presence] in Urine by Test stripOrdered By: Silvano Reed on 11-11-2024 Ketones Ql (U)NegativeNormalNegChillicothe HospitalComment on above:Order Comment: Name Collection Type:: Straight CatheterPerformed By: #### ADDONUAPLUS #### [facility] [address] [place] [id number] USALeukocyte esterase [Presence] in Urine by Test strip Ordered By: Silvano Reed on 85-97-3161Bdpykrtza esterase Test strip Ql (U)2+NormalNegChillicothe HospitalComment on above:Order Comment: Name Collection Type:: Straight CatheterPerformed By: #### ADDONUAPLUS #### [facility] [address] [place] [address] USALeukocytes [#/area] in Urine sediment by Automated count Ordered By: Silvano Reed on 54-88-7321USS Auto (Urine sed) [#/Area]20-49 [HPF]High0-4FUniversity Hospitals Geauga Medical CenterMucus [Presence] in Urine by AutomatedOrdered By: Silvano Reed on 43-75-7836Beqxf Auto Ql (U)Rare [LPF][facility] Behavioral Medical CenterNitrite Test strip Ql (U)Ordered By: Silvano Reed on 40-09-2363Bkitutb Ql (U)PositiveHighNegativeKettering Health Behavioral Medical CenterProtein Test strip (U) [Mass/Vol]Ordered By: Silvano Reed on 43-63-7817Zmbkhow (U) [Mass/Vol]NegativeNegativeMorrow County Hospitalpecific gravity Test strip (U) [Rel density]Ordered By: Silvano Reed on 40-41-0847Ugdhhppl gravity (U) [Rel density]1.012 1.001-1.030K[facility] Behavioral Medical CenterUrobilinogen Test strip (U) [Mass/Vol]Ordered By: Silvano Reed on 31-46-7669Cnmminyramqh (U) [Mass/Vol]Normal mg/dLNormalKettering Health Behavioral Medical CenterX-ray reportOrdered By: Prudencio Iyer on 93-26-6906Xqfrf reportPARKVIEW HEALTH [place] [address] XRay Report Signed Patient: Mary Mcadams MR#: [id number] : 1955 Acct:[id number] Age/Sex: 69 / M ADM Date: 5 Loc: Room: [address] [place] [address] Type: ADM IN Attending Dr: Silvano Reed [...] Iyer M.D. 11/11/2024 8:12 AM Dictation Location: [place] [address] Transcribed By: JEANIE 11/11/24811 Dictated By: Prudencio Iyer MD 11/11/24809 Signed By: 11/11/24811 [facility] Work Phone: XR chest 1V portableon 83-75-4192EQ chest 1V portable [facility] [place] [address] XRay Report Signed Patient: Mary Mcadams MR#: [id number] : 1955 Acct:[id number] Age/Sex: 69 / M ADM Date: 11/11/24 Loc: Room: [address] [place] [address] Type: DIS IN Attending Dr: Hoang Conner DO Copies to: DO Hoang Jimenez DO Ordering Provider: Hasmukh Vides DO Date of [...] Iyer M.D. 11/11/2024 8:12 AM Dictation Location: [facility]- Transcribed By: JEANIE 11/11/24811 Dictated By: Prudencio Iyer MD 11/11/24809 Signed By: 11/11/24811[facility]ician GrouppH of Urine by Test stripOrdered By: Silvano Reed on 55-68-0068nP (U)5.5 [pH]Normal5.0-9.0[facility] Medical CenterComment on above:Order Comment: Name Collection Type:: Straight CatheterPerformed By: #### ADDONUAPLUS #### [facility] [address] [place] [address] USAAlanine aminotransferase [Enzymatic activity/volume] in Serum or PlasmaOrdered By: Hasmukh Vides on 33-43-6930AON [Catalytic activity/Vol]10 U/LNormal7-52[facility] Medical CenterComment on above: Performed By: #### HS TROP, CBC, BNP, MG, CK, CMP ####[facility] [address] [place] [address] USAAlbumin [Mass/volume] in Serum or Plasma by Bromocresol green (BCG) dye binding methoOrdered By: Hasmukh Vides on 73-27-5354Gwjkvta BCG dye [Mass/Vol]3.9 g/dL3.5-5.7FUniversity Hospitals Geauga Medical CenterAlkaline phosphatase [Enzymatic activity/volume] in Serum or PlasmaOrdered By: Hasmukh Vides on 42-18-6348ASL [Catalytic activity/Vol]149 U/WLuev64-195 [facility] Medical CenterComment on above:Performed By: #### HS TROP, CBC, BNP, MG, CK, CMP ####[facility] [address] [place] [address] USAAppearance of UrineOrdered By: Hasmukh Vides on 11-10-2024 Appearance (U)ClearNormalClearKettering Health Behavioral Medical CenterComment on above: Order Comment: Name Collection Type:: Clean-Voided MidstreamPerformed By: #### BMP #### [facility] [address] [place] [address] USAAspartate aminotransferase [Enzymatic activity/volume] in Serum or PlasmaOrdered By: Hasmukh Vides on 16-49-0723WKR [Catalytic activity/Vol]19 U/WDpfjpy61-28EobavdhhcKettering Health Behavioral Medical CenterComment on above: Performed By: #### HS TROP, CBC, BNP, MG, CK, CMP ####[facility] [address] [place] [address] USABNP ser/plasOrdered By: Hasmukh Vides on 95-87-4621Pptaprrnovv peptide B (Bld) [Mass/Vol]187.0 pg/mLHigh5-100[facility] Medical CenterComment on above:Result Comment: PERFORMED BY: [address] [place] [address] PATHOLOGIST DATA ENTRY COORDINATOR REGGIE CASTANEDA M.D.Performed By: #### HS TROP, CBC, BNP, MG, CK, CMP ####[place] [id number] [place] Bacteria [Presence] in Urine by AutomatedOrdered By: Hasmukh Vides on 11-10-2024 Bacteria Auto Ql (U)2+ [HPF][facility] Basophils [#/volume] in Blood by Automated countOrdered By: Hasmukh Vides on 33-20-3210Ywtlvdjgv (Bld) [#/Vol]0.0 10*3/uLNormal0.0-0.2FUniversity Hospitals Geauga Medical CenterComment on above:Result Comment: PERFORMED BY: [facility] [address] [facility] [place] [address] PATHOLOGIST DATA ENTRY COORDINATOR REGGIE CASTANEDA M.D.Performed By: #### HS TROP, CBC, BNP, MG, CK, CMP ####[place] [id number] [place] Basophils/100 leukocytes in Blood by Automated countOrdered By: Hasmukh Vides on 96-99-7059Rdssdtexe/100 WBC (Bld)0.5 %Normal.[facility] Comment on above:Performed By: #### HS TROP, CBC, BNP, MG, CK, CMP ####[place] [id number] USABilirubin Test strip Ql (U)Ordered By: Hasmukh Vides on 43-72-2058Xvfrgfurs Ql (U)NegativeNegative [facility] Medical CenterBilirubin.total [Mass/volume] in Serum or PlasmaOrdered By: Hasmukh Vides on 37-36-9141Hmdngtmjr [Mass/Vol]0.6 mg/dLNormal 0.3-1.0[facility] Medical CenterComment on above:Performed By: #### HS TROP, CBC, BNP, MG, CK, CMP ####[place] [address] [place] [address] USACalcium [Mass/volume] in Serum or PlasmaOrdered By: Hasmukh Vides on 67-47-6396Bkzgeyr [Mass/Vol]9.8 mg/dLNormal8.6-10.3FUniversity Hospitals Geauga Medical CenterComment on above:Performed By: #### HS TROP, CBC, BNP, MG, CK, CMP ####[place] [address] USACarbon dioxide, total [Moles/volume] in Serum or PlasmaOrdered By: Hasmukh Vides on 80-16-2076BN4 [Moles/Vol]28.0 mmol/QRjbzso65.0-31.0[facility] Medical CenterComment on above:Performed By: #### HS TROP, CBC, BNP, MG, CK, CMP ####[place] [address] USAChloride [Moles/volume] in Serum or PlasmaOrdered By: Hasmukh Vides on 12-61-1698Itpxkrgb [Moles/Vol]98 mmol/DNbgvnr63-312QwjzpaysdKettering Health Behavioral Medical CenterComment on above:Performed By: #### HS TROP, CBC, BNP, MG, CK, CMP ####[place] [id number] USAColor of Urine by AutoOrdered By: Hasmukh Vides on 87-38-1867Hzdqa (U)Light-yellow NormalYellowKettering Health Behavioral Medical CenterComment on above:Order Comment: Name Collection Type:: Clean-Voided MidstreamPerformed By: #### BMP #### [facility] [address] [place] [address] USAComplete Blood Count Auto Diffon 53-98-3576Ggsd Corpuscular HGB Conc33.4 g/gBXrbwrk31.5-35.6The [facility] Physician GroupComment on above:Performed By: #### HS TROP, CBC, BNP, MG, CK, CMP ####[place] [address] USAMonocytes/100 WBC (Bld)18.48 %Normal0.00-20.00The [facility] Physician GroupComment on above: Performed By: #### HS TROP, CBC, BNP, MG, CK, CMP ####[place] [id number] USANRBC%0.1 /100{WBC}Normal0-0.5The [facility] Physician GroupComment on above:Performed By: #### HS TROP, CBC, BNP, MG, CK, CMP ####[place] [address] USAWhite Blood Count6.4 [CFU]/mLNormal4.1-10.5The [facility] Physician GroupComment on above:Performed By: #### HS TROP, CBC, BNP, MG, CK, CMP ####[address] Comprehensive Metabolic Panelon 30-98-7042Fxkfphq [Mass/Vol]3.9 g/dLNormal 3.5-5.7The [facility] Physician GroupComment on above:Performed By: #### HS TROP, CBC, BNP, MG, CK, CMP ####[place] [address] USACreatinine Clr Calc Orsmbtqb10.17NormalThe [facility] Physician GroupComment on above:Performed By: #### HS TROP, CBC, BNP, MG, CK, CMP ####[place] [id number] [place] GFR/1.73 sq M.predicted MDRD (S/P/Bld) [Vol rate/Area]mL/min/{1.73_m2}NormalThe [facility] Physician GroupComment on above:Performed By: #### HS TROP, CBC, BNP, MG, CK, CMP ####[place] [address] USACreatine kinase [Enzymatic activity/volume] in Serum or PlasmaOrdered By: Hasmukh Vides on 44-59-3839PG [Catalytic activity/Vol]27 U/VDnj46-407 [facility] Medical CenterComment on above:Performed By: #### HS TROP, CBC, BNP, MG, CK, CMP ####[facility] [address] [place] [id number] USACreatinine [Mass/volume] in Serum or PlasmaOrdered By: Hasmukh Vides on 33-35-1977Qvfhfhzwjn [Mass/Vol]0.80 mg/dLNormal0.70-1.30 [facility] Medical CenterComment on above:Performed By: #### HS TROP, CBC, BNP, MG, CK, CMP ####[facility] [address] [place] [id number] USADipstick and Microscopicon 72-48-0207Ermskpmd,Urine2+ [HPF]NormalNone SeenThe [facility] Physician GroupComment on above:Order Comment: Name Collection Type:: Clean-Voided MidstreamPerformed By: #### BMP #### [place] [address] USABilirubin,UrineNegativeNormalNegativeThe [facility] Physician GroupComment on above:Order Comment: Name Collection Type:: Clean- Voided MidstreamPerformed By: #### BMP #### [place] [address] USAGlucose Ql (U)NormalNormalNormalThe [facility] Physician GroupComment on above:Order Comment: Name Collection Type:: Clean-Voided MidstreamPerformed By: #### BMP #### [facility] [address] [place] [address] USAHyaline Casts,Pzqux1-55Menowt9-0Hgu [facility] Physician GroupComment on above:Order Comment: Name Collection Type:: Clean-Voided MidstreamPerformed By: #### BMP #### [place] [address] USAMucus,UrineRareNormalThe [facility] Physician GroupComment on above:Order Comment: Name Collection Type:: Clean-Voided MidstreamResult Comment: PERFORMED BY: [place] [id number] PATHOLOGIST DATA ENTRY COORDINATOR REGGIE CASTANEDA M.D.Performed By: #### BMP #### [place] [address] USANitrite,UrinePositiveNormalNegativeThe [facility] Physician GroupComment on above:Order Comment: Name Collection Type:: Clean-Voided MidstreamPerformed By: #### BMP #### [place] [address] USAOccult Blood,UrineNegativeNormalNegativeThe [facility] Physician GroupComment on above:Order Comment: Name Collection Type:: Clean- Voided MidstreamResult Comment: PERFORMED BY: [place] [address] PATHOLOGIST DATA ENTRY COORDINATOR REGGIE CASTANEDA M.D.Performed By: #### BMP #### [place] [address] USAProtein,UrineNegativeNormalNegativeThe [facility] Physician GroupComment on above:Order Comment: Name Collection Type:: Clean-Voided MidstreamPerformed By: #### BMP #### [place] [address] USARBC,Nnvcp4-4Jdsruo9-1Xde [facility] Physician GroupComment on above:Order Comment: Name Collection Type:: Clean-Voided MidstreamPerformed By: #### BMP #### [place] [address] USASpecificy [place],Urine1.824Srggsm2.001-1.030The [facility] Physician GroupComment on above:Order Comment: Name Collection Type:: Clean- Voided MidstreamPerformed By: #### BMP #### [place] [address] USASquamous Epithelial Cell,Ytmfi5-8Nasave2-6Swc [facility] Physician GroupComment on above:Order Comment: Name Collection Type:: Clean- Voided MidstreamPerformed By: #### BMP #### [place] [address] USAUrobilinogen,UrineNormalNormalNormalThe [facility] Physician GroupComment on above:Order Comment: Name Collection Type:: Clean- Voided MidstreamPerformed By: #### BMP #### [facility] [address] [place], [place] [address] USAWBC CLUMP, UrineManyNormalNone SeenThe [facility] Physician GroupComment on above:Order Comment: Name Collection Type:: Clean-Voided MidstreamPerformed By: #### BMP #### [facility] [address] [place] [address] USAWBC,UrineInnumerableNormal0-4The [facility] Physician Group Comment on above:Order Comment: Name Collection Type:: Clean-Voided Midstream Performed By: #### BMP #### [place] [id number] USAECG 12 lead ECGon 67-54-2927AKN 12 lead ECGPARKVIEW [facility]ALTH [facility] Main [place] [address] [place] [address] Electrocardiograph Report Signed Patient: Mary Mcadams MR#: [id number] : 1955 Acct:[id number] Age/Sex: 69 / M ADM Date: 11/11/24 Loc: Room: [address] [place] [address] Type: ADM IN Attending Dr: Hoang Conner DO Ordering Provider: Hasmukh Vides DO Date of Service: 11/10/24 ECG/ECG 12 lead ECG: Shortness of Breath/Dyspnea Copies to: Test Reason : Blood Pressure : 125/71 mmHG Vent. Rate : 104 BPM Atrial Rate : 104 BPM P-R Int : 180 ms QRS Dur : 126 ms QT Int : 388 ms P-R-T Axes : 85 -42 118 degrees QTcB Int : 510 ms Sinus tachycardia with premature atrial complexes Left axis deviation Left ventricular hypertrophy with QRS widening and repolarization abnormality Abnormal ECG When compared with ECG of 09-Jul-2024 07:18, No significant change was found Confirmed by SHANNON GONZALEZ MD, FACC ([id number]) on 11/12/2024 5:00:00 PM Referred By: Electronically Signed By: ORTEGA GONZALEZ MD FACC Transcribed By: MUS Signed By Shannon Gonzalez MD, [facility] 11/12/24 1700[facility] Physician GroupEosinophils [#/volume] in Blood by Automated countOrdered By: Hasmukh Vides on 28-30-1794Pniicqmzwcx (Bld) [#/Vol]0.3 10*3/uLNormal0.0-0.45[facility] CenterComment on above:Performed By: #### HS TROP, CBC, BNP, MG, CK, CMP ####[place] [address] [place] [id number] USAEosinophils/100 leukocytes in Blood by Automated countOrdered By: Hasmukh Vides on 32-56-4253Qmnzvggrsco/100 WBC (Bld)5.0 %Normal.[facility] Medical CenterComment on above:Performed By: #### HS TROP, CBC, BNP, MG, CK, CMP ####[place] [address] [place] [address] USAEpithelial cells.squamous [#/area] in Urine sediment by Automated countOrdered By: Hasmukh Vides on 55-77-2667Gxnruegecx cells.squamous Auto (Urine sed) [#/Area]1-2 [HPF]0-2FUniversity Hospitals Geauga Medical CenterErythrocyte distribution width [Ratio] by Automated countOrdered By: Hasmukh Vides on 75-24-7459Abrhagpcvjd distribution width (RBC) [Ratio]16.5 %High 12.0-14.8[facility] Medical CenterComment on above:Performed By: #### HS TROP, CBC, BNP, MG, CK, CMP ####[place] [id number] USAErythrocytes [#/area] in Urine sediment by Automated countOrdered By: Hasmukh Vides on 74-19-2756ZRK Auto (Urine sed) [#/Area]3-4 [HPF]0-4FUniversity Hospitals Geauga Medical CenterErythrocytes [#/volume] in Blood by Automated countOrdered By: Hasmukh Vides on 75-98-8280VPY (Bld) [#/Vol]3.90 10*6/uLNormal3.90-5.60[facility] CenterComment on above: Performed By: #### HS TROP, CBC, BNP, MG, CK, CMP ####[place] [place] [address] USAGlucose [Mass/volume] in Serum or PlasmaOrdered By: Hasmukh Vides on 89-27-2074Oyluhcf [Mass/Vol]100 mg/dLNormal 70-100[facility] Medical CenterComment on above:ADA recommended reference rangeRandom Glucose Reference Range is dependent on time and content of last meal. Glucose of more than 200 mg/dL in a nonstressed, ambulatory subject supports the diagnosisof Diabetes Mellitus.Result Comment: Random Glucose Reference Range is dependent on time and content of last meal. Glucose of more than 200 mg/dL in a nonstressed, ambulatory subject supports the diagnosis of Diabetes Mellitus. ADA recommended reference rangePerformed By: #### HS TROP, CBC, BNP, MG, CK, CMP ####[place] [place] [address] [place] Glucose [Mass/volume] in Urine by Test stripOrdered By: Hasmukh Vides on 55-28-5523Mgxdhjz Test strip (U) [Mass/Vol]Normal mg/dLNormOhioHealth Doctors HospitalHematocrit [Volume Fraction] of Blood by Automated countOrdered By: Hasmukh Vides on 47-81-5101Hsbdwqcfhe (Bld) [Volume fraction]31.6 %Low 38.8-50.0[facility] Medical CenterComment on above:Performed By: #### HS TROP, CBC, BNP, MG, CK, CMP ####[facility] [place] [address] USAHemoglobin Test strip Ql (U)Ordered By: Hasmukh Vides on 72-24-0658Xtuwukkuju Ql (U)NegativeNegativeKettering Health Behavioral Medical Center Hemoglobin [Mass/volume] in BloodOrdered By: Hasmukh Vides on 11-10-2024 Hemoglobin (Bld) [Mass/Vol]10.5 g/dLLow13.0-17.0[facility] Medical CenterComment on above:Performed By: #### HS TROP, CBC, BNP, MG, CK, CMP ####[facility] [address] [place] [address] USAHyaline casts [#/area] in Urine sediment by Automated countOrdered By: Hasmukh Vides on 96-61-9666Xbzxfqi casts Auto (Urine sed) [#/Area]9-19 [LPF]High0-8[facility] Medical CenterKetones [Presence] in Urine by Test stripOrdered By: Hasmukh Vides on 54-93-7296Zeevoad Ql (U)NegativeNormalNegativeKettering Health Behavioral Medical CenterComment on above:Order Comment: Name Collection Type:: Clean- Voided MidstreamPerformed By: #### BMP #### [facility] [address] [place] [id number] USALeukocyte clumps [Presence] in Urine by AutomatedOrdered By: Hasmukh Vides on 43-47-9512Ykbouigyj clumps Auto Ql (U)Many [LPF]HighNone SeenKettering Health Behavioral Medical CenterLeukocyte esterase [Presence] in Urine by Test stripOrdered By: Hasmukh Vides on 05-58-6143Hdpxzqojx esterase Test strip Ql (U)4+NormalNegChillicothe HospitalComment on above:Order Comment: Name Collection Type:: Clean-Voided MidstreamPerformed By: #### BMP #### [facility] [address] [place] [id number] USALeukocytes [#/area] in Urine sediment by Automated count Ordered By: Hasmukh Vides on 23-14-3114KIS Auto (Urine sed) [#/Area]Innumerable [HPF]High0-4FUniversity Hospitals Geauga Medical CenterLeukocytes [#/volume] corrected for nucleated erythrocytes in Blood by Automated counOrdered By: Hasmukh Vides on 74-43-0623CHT corrected for nucl RBC Auto (Bld) [#/Vol]6.4 10*3/uL4.1-10.5 [facility] Medical CenterLeukocytes [#/volume] in Blood by Automated countOrdered By: Hasmukh Vides on 23-46-0321YRB (Bld) [#/Vol]6.4 10*3/uLNormal 4.1-10.5[facility] Medical CenterComment on above:Performed By: #### HS TROP, CBC, BNP, MG, CK, CMP ####[address] [address] USALymphocytes [#/volume] in Blood by Automated countOrdered By: Hasmukh Vides on 65-39-8839Esojargsrzk (Bld) [#/Vol]1.2 10*3/uLNormal 1.00-4.8[facility] Medical CenterComment on above:Performed By: #### HS TROP, CBC, BNP, MG, CK, CMP ####[address] [address] USALymphocytes/100 leukocytes in Blood by Automated count Ordered By: Hasmukh Vides on 23-66-9580Bfrhpflnnkn/100 WBC (Bld)18.7 %Normal. [facility] Medical CenterComment on above:Performed By: #### HS TROP, CBC, BNP, MG, CK, CMP ####[address] [address] [facility] [Entitic mass] by Automated countOrdered By: Hasmukh Vides on 78-53-4193ZLY (RBC) [Entitic mass]27.0 pgLow27.5-35.2FUniversity Hospitals Geauga Medical CenterComment on above:Performed By: #### HS TROP, CBC, BNP, MG, CK, CMP ####[address] [address] [facility] Auto (RBC) [Mass/Vol]Ordered By: Hasmukh Vides on 78-94-9886VFRO (RBC) [Mass/Vol] 33.4 g/dL32.5-35.6FTriHealth Good Samaritan HospitalV [Entitic volume] by Automated countOrdered By: Hasmukh Vides on 62-14-9557PCD (RBC) [Entitic vol]80.8 fLLow83.5-101K[facility] Behavioral Medical CenterComment on above:Performed By: #### HS TROP, CBC, BNP, MG, CK, CMP ####[address] [address] USAMagnesium [Mass/volume] in Serum or PlasmaOrdered By: Hasmukh Vides on 58-69-5684Wabmqzahk [Mass/Vol]1.6 mg/dLLow1.9-2.7FUniversity Hospitals Geauga Medical CenterComment on above:Result Comment: PERFORMED BY: [facility] [address] [place] [id number] PATHOLOGIST DATA ENTRY COORDINATOR REGGIE CASTANEDA M.D.Performed By: #### HS TROP, CBC, BNP, MG, CK, CMP ####[place] [place] [address] [place] Monocyte distribution width [Entitic volume] in Blood by AutomatedOrdered By: Hasmukh Vides on 30-77-5110Pbborpsx distribution width Auto (Bld) [Entitic vol] 18.48 %0.00-20.00K[facility] Behavioral Medical CenterMonocytes [#/volume] in Blood by Automated countOrdered By: Hasmukh Vides on 73-59-3082Wfdqyzsew (Bld) [#/Vol] 0.6 10*3/uLNormal0.0-0.8K[facility] Medical CenterComment on above: Performed By: #### HS TROP, CBC, BNP, MG, CK, CMP ####[address] [place] [address] USAMonocytes/100 leukocytes in Blood by Automated countOrdered By: Hasmukh Vides on 89-43-8946Wsufmboja/100 WBC (Bld)9.3 %Normal.[facility] Medical CenterComment on above:Performed By: #### HS TROP, CBC, BNP, MG, CK, CMP ####[address] [place] [address] USAMucus [Presence] in Urine by AutomatedOrdered By: Hasmukh Vides on 34-30-3206Aduex Auto Ql (U)Rare [LPF][facility] Neutrophils [#/volume] in Blood by Automated countOrdered By: Hasmukh Vides on 37-62-4044Tgzrrkkrdkn (Bld) [#/Vol]4.3 10*3/uLNormal1.8-7.7FUniversity Hospitals Geauga Medical CenterComment on above:Performed By: #### HS TROP, CBC, BNP, MG, CK, CMP ####[address] [place] [address] [place] Neutrophils/100 leukocytes in Blood by Automated countOrdered By: Hasmukh Vides on 57-06-8904Fcepdjtvggu/100 WBC (Bld)66.5 %Normal.[facility] Behavior[facility] Medical CenterComment on above:Performed By: #### HS TROP, CBC, BNP, MG, CK, CMP ####[address] [place] [id number] USANitrite Test strip Ql (U)Ordered By: Hasmukh Vides on 72-98-0954Xvvvxif Ql (U)Positive HighNegativeKettering Health Behavioral Medical CenterNo Panel InformationOrdered By: Hasmukh Vides on 02-52-8855Grgbrdinq GFR (CKD-EPI)> 60.0 mL/MinKettering Health Behavioral Medical CenterPharmacy Creatinine Clearance (Chem77.17[facility] Behavior[facility] Medical CenterNucleated erythrocytes [Presence] in Blood by Automated count Ordered By: Hasmukh Vides on 24-55-1017Qpmkvfzzy RBC Auto Ql (Bld)0.1 /100{WBC} 0-0.5FUniversity Hospitals Geauga Medical CenterPlatelet mean volume [Entitic volume] in Blood by Automated countOrdered By: Hasmukh Vides on 48-42-1519Vjrhrvvb mean volume (Bld) [Entitic vol]7.9 fLNormal6.6-10.1FUniversity Hospitals Geauga Medical Center Comment on above:Performed By: #### HS TROP, CBC, BNP, MG, CK, CMP ####[address] [address] USAPlatelets [#/volume] in Blood by Automated countOrdered By: Hasmukh Vides on 22-00-3301Xqbyohdsz (Bld) [#/Vol]262 10*3/fGKujwqg549-439OmhhjyccrKettering Health Behavioral Medical CenterComment on above:Performed By: #### HS TROP, CBC, BNP, MG, CK, CMP ####[address] [address] USAPotassium [Moles/volume] in Serum or PlasmaOrdered By: Hasmukh Vides on 95-05-1712Xzfaubvct [Moles/Vol]4.1 mmol/LNormal3.5-5.1FUniversity Hospitals Geauga Medical CenterComment on above:Performed By: #### HS TROP, CBC, BNP, MG, CK, CMP ####[place] [address] USAProtein Test strip (U) [Mass/Vol]Ordered By: Hasmukh Vides on 26-95-9455Lkzgqxb (U) [Mass/Vol]NegativeNegativeKettering Health Behavioral Medical CenterProtein [Mass/volume] in Serum or PlasmaOrdered By: Hasmukh Vides on 57-76-9052Woifwab [Mass/Vol]7.5 g/dLNormal6.4-8.9K[facility] Medical CenterComment on above:Performed By: #### HS TROP, CBC, BNP, MG, CK, CMP ####[place] [id number] USASerum globulin measurement by calculation (mass/volume)Ordered By: Hasmukh Vides on 84-23-8079Duknnuoh (S) [Mass/Vol]3.6 g/dLNormalKettering Health Behavioral Medical CenterComment on above:Performed By: #### HS TROP, CBC, BNP, MG, CK, CMP ####[place] [address] USASerum or plasma albumin/globulin mass ratioOrdered By: Hasmukh Vides on 93-71-4796Rqricrm/Globulin [Mass ratio]1.1 {ratio}NormalKettering Health Behavioral Medical CenterComment on above:Performed By: #### HS TROP, CBC, BNP, MG, CK, CMP ####[place] [address] USASerum or plasma anion gap determinationOrdered By: Hasmukh Vides on 61-75-3352Cxato gap [Moles/Vol]11.1 mmol/LNormal6.0-15.0[facility] Medical CenterComment on above:Performed By: #### HS TROP, CBC, BNP, MG, CK, CMP ####[place] [address] USASodium [Moles/volume] in Serum or PlasmaOrdered By: Hasmukh Vides on 60-04-3945Tasrhi [Moles/Vol]133 mmol/LLow 136-145K[facility] Medical CenterComment on above:Performed By: #### HS TROP, CBC, BNP, MG, CK, CMP ####[facility] [place] [address] USASpecific gravity Test strip (U) [Rel density]Ordered By: Hasmukh Vides on 32-65-0332Lhqxjfyn gravity (U) [Rel density]1.0101.001-1.030 [facility] Medical CenterTroponin I High Sensitivityon 11-10-2024 Troponin I High Rgettfaebvi3Ufqrkp7-26Pyk [facility] Physician GroupComment on above:Result Comment: The Troponin units of report have been changed to meet the Chest Pain Accreditation requirement, element EC5.M1l2. Troponin units are changed from pg/ml to ng/L. Also, the decimal is removed and results are in whole numbers. PERFORMED BY: [facility] [address] [facility] [place] [address] PATHOLOGIST DATA ENTRY COORDINATOR REGGIE CASTANEDA M.D.Performed By: #### HS TROP, CBC, BNP, MG, CK, CMP ####[facility] [place] [address] [facility] Troponin I.cardiac [Mass/volume] in Serum or Plasma by Detection limit <= 0.01 ng/mLOrdered By: Hasmukh Vides on 10-70-9582Ayfnphwm I.cardiac DL <= 0.01 ng/mL [Mass/Vol]4 ng/L0-20[facility] Medical CenterCommemorial healthcare on above:The Troponin units of report have been changed to meet the Chest Pain Accreditation requirement, element EC5.M1l2. Troponin units are changed from pg/ml to ng/L. Also, the decimal is removed and results are in whole numbers.Urea nitrogen [Mass/volume] in Serum or PlasmaOrdered By: Hasmukh Vides on 42-97-5479Khac nitrogen [Mass/Vol]14 mg/dLNormal7-25[facility] Medical CenterComment on above:Performed By: #### HS TROP, CBC, BNP, MG, CK, CMP ####[facility] [address] [place] [address] USAUrine Cultureon 11-10-2024 Bacteria identified Cx Nom (U)50,000 colonies/ml mixed bacterial skin contaminants including mixed gram negative bacilli - 2 Days PERFORMED BY: [facility] [address] [place] [address] PATHOLOGIST DATA ENTRY COORDINATOR REGGIE CASTANEDA M.D.NormalThe [facility] Physician GroupComment on above: Performed By: #### BMP #### [facility] [address] [place] [address] USAUrine cultureOrdered By: Hasmukh Vides on 11-10-2024 Bacteria identified Cx Nom (U)bacilli - 2 DaysKettering Health Behavioral Medical Center Urobilinogen Test strip (U) [Mass/Vol]Ordered By: Hasmukh Vides on 11-10-2024 Urobilinogen (U) [Mass/Vol]Normal mg/dLNormalKettering Health Behavioral Medical CenterpH of Urine by Test stripOrdered By: Hasmukh Vides on 42-82-2217cO (U)5.5 [pH] Normal5.0-9.0[facility] Medical CenterComment on above:Order Comment: Name Collection Type:: Clean-Voided MidstreamPerformed By: #### BMP #### [facility] [address] [place] [address] USAECG 12 [place] 54-69-4004MAC revealed normal sinus rhythm with first-degree AV block, left ventricle hypertrophy with QRS widening, prolonged QT intervalUnGalion Hospital Work Phone: [facility] Work Phone: Provider Letteron 68-94-1525Hwisfkxu LetterProvider Letter August 09, 2024 [address]ARY MCADAMS [address] [place] [phone] : 1955 Dear Mary, We have been trying to reach you with no success. Please find enclosed PSA results. Also, at the time of your call, please provide us with your current information. Thank you for your prompt attention to this matter. Sincerely, [facility] [address] [place] [address] OtnuomAidnmoSt. Mary's Medical CenterTRANSTHORACIC ECHO (TTE) COMPLETEon 20-63-1987ENHZGTCHGQSNC ECHO (TTE) [facility] [address] [place] [address], [address], [place], [place] [address] TRANSTHORACIC ECHOCARDIOGRAM REPORT Patient Name: MARY MCADAMS Reading Physician: [id number] Shannon Gonzalez MD, [facility] Study Date: 08/09/2024 Ordering Provider: [id number] SHANNON GONZALEZ MRN/PID: [id number] Fellow: Nurse: Date of /Age: 408/18/1955 / 68 years Abrasives Sales Representative: Adamaris Yoder RDCS, RT(R), RDMS, RVT Gender Assigned at Additional Staff: : Height: 182.88 cm Admit Date: Weight: 70.76 kg Admission Status: Outpatient BSA / BMI: 1.92 m2 / 21.16 Department Location: [facility] kg/m2 [place] Blood Pressure: 98 /60 mmHg Study Type: TRANSTHORACIC ECHO (TTE) COMPLETE Diagnosis/ICD: Cardiomyopathy, unspecified-I42.9 Indication: NICM CPT Codes: Echo Complete w Full Doppler-88380 Patient History: Pertinent History: A-Fib, COPD and [...] mmHg AORTA: Asc Ao Diam 4.09 cm [id number] Shannon Gonzalez MD, FACC Electronically signed on 08/09/2024 at 5:39:23 PM * (more content not included)...[facility] US Heart Transthoracicon 69-17-5151Lytpjb Valve Area by Continuity of Peak Velocity2.98 zg7MmfhgcyqrrGalion Hospital Work Phone: [phone] Valve Area by Continuity of VTI3.33 cm2 [facility] Work Phone: [phone] mn tobj0fqVqLudzjpdirjCleveland Clinic [facility] Work Phone: [phone] pk mnkp1otUbDpiiihbaasCleveland Clinic [facility] Work Phone: [phone] pk vel1.17 m/[facility] Work Phone: [phone] vol index A/L35.2 ml/u7ApvakuwrsuGalion Hospital Work Phone: [phone] A4C EF49.3[facility] Work Phone: [phone] Biplane EF41 %[facility] Work Phone: [phone] EF50 %[facility] Work Phone: [phone] cmC[facility] Clinic [facility] Hospital Work Phone: [phone] diam2.49 cmC[facility] Clinic [facility] Hospital Work Phone: [phone] avg E/e' ratio6.26[facility] Work Phone: [phone] E/A ratio1.18[facility] Work Phone: [phone] free wall pk S'13.32 cm/[facility] Work Phone: [phone] Clinic [facility] Work Phone: [phone] annular plane systolic excursion2.3 cm [facility] Work Phone: [facility] [address] [place] [address], [address], [place] [address] TRANSTHORACIC ECHOCARDIOGRAM REPORT Patient Name: MARY MCADAMS Reading Physician: [id number] Shannon Gonzalez MD, [facility] Study Date: 08/09/2024 Ordering Provider: [id number] SHANNON GONZALEZ MRN/PID: [id number] Fellow: Nurse: Date of /Age: 408/18/1955 / 68 years Abrasives Sales Representative: Adamaris Yoder RDCS, RT(R), RDMS, RVT Gender Assigned at Additional Staff: : Height: 182.88 cm Admit Date: Weight: 70.76 kg Admission Status: Outpatient BSA / BMI: 1.92 m2 / 21.16 Department Location: [facility] kg/m2 [place] Blood Pressure: 98 /60 mmHg Study Type: TRANSTHORACIC ECHO (TTE) COMPLETE Diagnosis/ICD: Cardiomyopathy, unspecified-I42.9 Indication: NICM CPT Codes: Echo Complete w Full Doppler-43291 Patient History: Pertinent History: A-Fib, COPD and [...] m/s (<=1.7m/s) AoV Peak (more content not included)...Shannon Moran MD - 08/09/[address], [address] [place] [address] TRANSTHORACIC ECHOCARDIOGRAM REPORT Patient Name: MARY Campbell Physician: [id number] Shannon Gonzalez MD, [facility] Study Date: 08/09/2024 Ordering Provider: [id number] SHANNON GONZALEZ MRN/PID: [id number] Fellow: Nurse: Date of /Age: 408/18/1955 / 68 years Abrasives Sales Representative: Adamaris Yoder RDCS, RT(R), RDMS, RVT Gender Assigned at Additional Staff: : Height: 182.88 cm Admit Date: Weight: 70.76 kg Admission Status: Outpatient BSA / BMI: 1.92 m2 / 21.16 Department Location: [facility] kg/[address] Blood Pressure: 98 /60 mmHg Study Type: TRANSTHORACIC ECHO (TTE) COMPLETE Diagnosis/ICD: Cardiomyopathy, unspecified-I42.9 Indication: NICM CPT Codes: Echo Complete w Full Doppler-26190 Patient History: Pertinent History: A-Fib, COPD and [...] PV Mean P.3 mmHg (more content not included)...[facility] Work Phone: [facility] Work Phone: PSA Totalon 39-89-1482Wfvttgtc specific Ag [Mass/Vol] 1.3 ng/mLNormal0.1-3.5Fisher Saint Luke InstituteComment on above:Result Comment: The concentration of PSA determined by different manufacturers can vary due to differences in assay methods and reagent specificity. Values obtained from different assay methods cannot be used interchangeably. The methodology used for this result was chemiluminescence using [employer]'s Access Hybritech PSA reagent.Performed By: #### [id number] #### [facility] [address] [place], [place] [address]Hyyyjwomqc Visit Summaryon 78-40-2239Rwunbhfjdc Visit Summary Ambulatory Visit Summary MARY MCADAMS [...] mg DR Tab) potassium chloride (Potassium Chloride (Cwh-Zzmd-Qiu 10) 10 mEq oral tablet, extended release) [...] [place] When: Where: [facility] [address] , [place] [address] [phone] You Need to Complete the Following PSA [...] 1 Tablets Contact prescribing physician if questions orconcerns Unchanged ipratropium 4 times a day Contact prescribing physician if questions or concerns Unchanged metoprolol (metoprolol succinate 25 mg ER Tab) 1 Tablets By Mouth Every day Contact prescribing physician if questions or concerns Unchanged pantoprazole (Pantoprazole [address] Tab) Contact prescribing physician if questions or concerns Unchanged potassium chloride (Potassium Chloride (Tmn-Gjkk-Qmh 10) 10 mEq oral tablet, extended release) [...] What are the causes? (more content not included)...NormalFisher Saint Luke InstituteCHEMISTRYOrdered By: SYSTEM SYSTEM on 90-85-0335Ecpnowjw specific Ag [Mass/Vol]1.3 ng/mLNormal0.1 - 3.5 ng/mLRemisol ChemComment on above: Interpretive Data: The concentration of PSA determined by different manufacturers can vary due to differences in assay methods and reagent specificity. Values obtained from different assay methods cannot be used interchangeably. The methodology used for this result was chemiluminescence using [employer]'s Access Hybritech PSA reagent.Urology Office/Clinic Note on 79-22-5115Uebrzoq Office/Clinic NoteUrology Office/Clinic Note Chief Complaint 1 year with PSA HPI Staff 68yr old male pt here for 9mo f/u with PSA. CIC 1x per day. Pt now has an indwelling catheter. Catheter was put in during his stay at [facility] for CHF last month and after discharge he was sent to [facility] and they wanted him to keep [...] output ~8-12oz. However had catheter placed at [facility] (was there for CHF ~3.5 wks ago) [...] on Finasteride 5mg qd at prior OV. Ruso he was voiding well prior to catheter placement. -Cont Tamsulosin bid and Finasteride qd. Pt to call for refills. Follow-up With When Contact Information EMERSON SALMON, Clinton Hernandez, URL [facility] [address], [place] [phone] Additional Instructions: 6 mos w/ PSA Patient [...] Pantoprazole [address] Tab Potassium Chloride (Spi-Ckbz-Uah 10) 10 mEq oral tablet, extended release, [...] Tobacco Use:. Never Smo (more content not included)...[facility] Medical CenterComment on above:Result Comment: Electronically Signed By: Clinton NORMAN MD\.br\Date and Time Signed: 08/05/24 14:40 EDT\.br\Electronically Co-Signed By: Rhonda Temple.br\Date and Time Co-Signed: 08/05/24 14:39 EDTBasic Metabolic Panelon 28-67-9022Qemmg gap [Moles/Vol]13.9 mmol/LNormal6.0-15.0[facility] Physician GroupComment on above:Performed By: #### BMP #### [place] [address] USACalcium [Mass/Vol]9.0 mg/dLNormal8.6-10.3The [facility] Physician GroupComment on above:Performed By: #### BMP #### [place] [address] USAChloride [Moles/Vol]99 mmol/CFnatgt38-305Wqa [facility] Physician GroupComment on above:Performed By: #### BMP #### [place] [address] USACO2 [Moles/Vol]24.2 mmol/TVppirn48.0-31.0The [facility] Physician GroupComment on above:Performed By: #### BMP #### [place] [address] USACreatinine [Mass/Vol]0.78 mg/dLNormal0.70-1.30The [facility] Physician GroupComment on above:Performed By: #### BMP #### [place] [address] USACreatinine Clr Calc Seyhevvi66.23NormalThe [facility] Physician GroupComment on above:Result Comment: PERFORMED BY: [place] [address] PATHOLOGIST DATA ENTRY COORDINATOR MALLORIE GARCIA M.D.Performed By: #### BMP #### [place] [address] USAGFR/1.73 sq M.predicted MDRD (S/P/Bld) [Vol rate/Area] mL/min/{1.73_m2}NormalThe [facility] Physician GroupComment on above:Performed By: #### BMP #### [place] [address] USAGlucose [Mass/Vol]86 mg/bFAmtslb10-246Zgz [facility] Physician GroupComment on above:Result Comment: Random Glucose Reference Range is dependent on time and content of last meal. Glucose of more than 200 mg/dL in a nonstressed, ambulatory subject supports the diagnosis of Diabetes Mellitus. ADA recommended reference rangePerformed By: #### BMP #### [facility] [address] [place] [address] USAPotassium [Moles/Vol]4.1 mmol/LNormal3.5-5.1The [facility] Physician GroupComment on above:Performed By: #### BMP #### [facility] [address] [place] [address] USASodium [Moles/Vol]133 mmol/EBif460-008Cin [facility] Physician GroupComment on above:Performed By: #### BMP #### [facility] [address] [place] [address] USAUrea nitrogen [Mass/Vol]16 mg/dLNormal7-25The [facility] Physician GroupComment on above:Performed By: #### BMP #### [facility] [address] [place] [id number] USACalcium [Mass/volume] in Serum or PlasmaOrdered By: Ambrose Hsieh on 61-05-2904Coxbnnh [Mass/Vol]Calcium [Mass/volume] in Serum or Plasma 8.6-10.3FUniversity Hospitals Geauga Medical CenterCarbon dioxide, total [Moles/volume] in Serum or PlasmaOrdered By: Ambrose Hsieh on 63-69-5662HQ7 [Moles/Vol]Carbon dioxide, total [Moles/volume] in Serum or Xgxfpt17.0-31.0[facility] Medical CenterChloride [Moles/volume] in Serum or PlasmaOrdered By: Ambrose Hsieh on 40-81-0945Piuiaxlz [Moles/Vol]Chloride [Moles/volume] in Serum or Plasma 98-107[facility] Medical CenterCreatinine [Mass/volume] in Serum or PlasmaOrdered By: Ambrose Hsieh on 61-71-0921Maninvyjyq [Mass/Vol]Creatinine [Mass/volume] in Serum or Plasma0.70-1.30[facility] Medical CenterECG 12 lead ECGon 26-80-0742DSB 12 lead ECGPARKVIEW [facility] [address] [place] [address] [place] [address] Electrocardiograph Report Signed Patient: Mary Mcadams MR#: [id number] : 1955 Acct:[id number] Age/Sex: 68 / M ADM Date: 07/03/24 Loc: Room: [address] [place] [address] Type: DIS IN Attending Dr: Altaf Jones MD Ordering Provider: Shannon Gonzalez MD, [facility] Date of Service: 07/09/24 ECG/ECG 12 lead ECG: QTC prolongation Copies to: Test Reason : Blood Pressure : */* mmHG Vent. Rate : 88 BPM Atrial Rate : 88 BPM P-R Int : 222 ms QRS Dur : 130 ms QT Int : 364 ms P-R-T Axes : -21 99 -46 degrees QTcB Int : 440 ms Sinus rhythm with 1st degree AV block with PVCs Nonspecific intraventricular block Abnormal ECG Confirmed by Romelia Garrido ([id number]) on 07/09/2024 10:25:24 PM Referred By: Electronically Signed By: Romelia Garrido Transcribed By: MUS Signed By Romelia Garrido MD [address]24[facility] Physician GroupGlucose [Mass/volume] in Serum or PlasmaOrdered By: Ambrose Hsieh on 13-01-4575Mezmnja [Mass/Vol]Glucose [Mass/volume] in Serum or Fcrjhy30-114MosuddyzmKettering Health Behavioral Medical CenterComment on above:ADA recommended reference rangeRandom Glucose Reference Range is dependent on time and content of last meal. Glucose of more than 200 mg/dL in a nonstressed, ambulatory subject supports the diagnosisof Diabetes Mellitus.No Panel InformationOrdered By: Ambrose Hsieh on 65-55-4354Ihylproev GFR (CKD-EPI)> 60.0 mL/MinKettering Health Behavioral Medical CenterPharmacy Creatinine Clearance (Chem 81.23[facility] Medical CenterPotassium [Moles/volume] in Serum or PlasmaOrdered By: Ambrose Hsieh on 07-11-6033Qsbhlreor [Moles/Vol]Potassium [Moles/volume] in Serum or Plasma3.5-5.1FLake County Memorial Hospital - Westerum or plasma anion gap determinationOrdered By: Ambrose Hsieh on 94-40-4007Jmrbv gap [Moles/Vol]Serum or plasma anion gap determination6.0-15.0Morrow County Hospitalodium [Moles/volume] in Serum or PlasmaOrdered By: Ambrose Hsieh on 07-20-6430Vuoxvu [Moles/Vol]Sodium [Moles/volume] in Serum or PlasmaLow 136-145[facility] Medical CenterUrea nitrogen [Mass/volume] in Serum or PlasmaOrdered By: Ambrose Hsieh on 61-70-8394Xbzj nitrogen [Mass/Vol]Urea nitrogen [Mass/volume] in Serum or Plasma7-25[facility] Basic Metabolic Panelon 60-52-1178Sykee gap [Moles/Vol]8.6 mmol/LNormal6.0-15.0 The [facility] Physician GroupComment on above:Performed By: #### BMP ####[place] [address] [place] [address] USACalcium [Mass/Vol]8.9 mg/dLNormal8.6-10.3The [facility] Physician GroupComment on above: Performed By: #### BMP ####[address] [address] USAChloride [Moles/Vol]101 mmol/YRcwdmn06-971Ncr [facility] Physician GroupComment on above:Performed By: #### BMP ####[address] [address] USACO2 [Moles/Vol]27.7 mmol/RXscloc81.0-31.0The [facility] Physician GroupComment on above:Performed By: #### BMP ####[address] [address] USACreatinine [Mass/Vol]0.74 mg/dLNormal0.70-1.30The [facility] Physician Group Comment on above:Performed By: #### BMP ####[address] [address] USACreatinine Clr Calc Enivyvez57.20NormalThe [facility] Physician GroupComment on above:Result Comment: PERFORMED BY: [facility] [address] [place] [address] PATHOLOGIST DATA ENTRY COORDINATOR MALLORIE GARCIA M.D.Performed By: #### BMP ####[address] [address] USAGFR/1.73 sq M.predicted MDRD (S/P/Bld) [Vol rate/Area]mL/min/{1.73_m2}NormalThe [facility] Physician Group Comment on above:Performed By: #### BMP ####[address] [address] USAGlucose [Mass/Vol]93 mg/mWQpfulu63-687Mka [facility] Physician GroupComment on above:Result Comment: Random Glucose Reference Range is dependent on time and content of last meal. Glucose of more than 200 mg/dL in a nonstressed, ambulatory subject supports the diagnosis of Diabetes Mellitus. ADA recommended reference rangePerformed By: #### BMP ####[address] [address] USAPotassium [Moles/Vol]4.3 mmol/LNormal3.5-5.1The [facility] Physician GroupComment on above:Performed By: #### BMP ####[address] [address] USASodium [Moles/Vol]133 mmol/GWmv207-077Ueg [facility] Physician GroupComment on above:Performed By: #### BMP ####[address] [address] USAUrea nitrogen [Mass/Vol]13 mg/dLNormal7-25The [facility] Physician GroupComment on above:Performed By: #### BMP ####[address] [address] USAECG 12 lead ECGon 88-29-9927BVG 12 lead ECGPARKVIEW [facility] Main [place] [address] [place] [address] Electrocardiograph Report Signed Patient: Mary Mcadams MR#: [id number] 3267 : 1955 Acct:[id number] Age/Sex: 68 / M ADM Date: 07/03/24 Loc: Room: [address] [place] [address] Type: ADM IN Attending Dr: Ambrose Hsieh MD Ordering Provider: Shannon Gonzalez MD, [facility] Date of Service: 07/08/24 ECG/ECG 12 lead ECG: QTC prolongation Copies to: Test Reason : Blood Pressure : */* mmHG Vent. Rate : 77 BPM Atrial Rate : 77 BPM P-R Int : 178 ms QRS Dur : 126 ms QT Int : 382 ms P-R-T Axes : 67 80 116 degrees QTcB Int : 432 ms Normal sinus rhythm Nonspecific intraventricular block T wave abnormality, consider lateral ischemia Abnormal ECG When compared with ECG of 07-Jul-2024 08:34, QRS axis shifted right Non-specific change in ST segment in Inferior leads Nonspecific T wave abnormality no longer evident in Inferior leads Confirmed by Andres Herrera ([id number]) on 07/08/2024 8:57:10 AM Referred By: Electronically Signed By: Andres Herrera Transcribed By: MUS Signed By Andres Herrera MD 07/08/24 0857Mercy HospitalBasic Metabolic Panelon 87-92-7640Mudiz gap [Moles/Vol]9.4 mmol/LNormal6.0-15.0The American Academic Health SystemComment on above:Performed By: #### MG, BMP ####[address] [address] USACalcium [Mass/Vol]9.1 mg/dLNormal 8.6-10.3The American Academic Health SystemComment on above:Performed By: #### MG, BMP ####[address] [address] [place] Chloride [Moles/Vol]103 mmol/BBmzvof88-323Akx American Academic Health SystemComment on above:Performed By: #### MG, BMP ####[place] [address] [place] [address] USACO2 [Moles/Vol]27.1 mmol/SVzrvkc00.0-31.0The American Academic Health SystemComment on above:Performed By: #### MG, BMP ####[address] [address] [place] Creatinine [Mass/Vol]0.82 mg/dLNormal0.70-1.30The [facility] Physician Group Comment on above:Performed By: #### MG, BMP ####[address] [address] USACreatinine Clr Calc Kjqgtdbx83.25 NormalLakewood Ranch Medical Center Physician GroupComment on above:Performed By: #### MG, BMP ####[place] [address] [place] GFR/1.73 sq M.predicted MDRD (S/P/Bld) [Vol rate/Area]mL/min/{1.73_m2}NormalThe [facility] Physician GroupComment on above:Performed By: #### MG, BMP ####[place] [address] USAGlucose [Mass/Vol]88 mg/oSEwtjas22-770Sim [facility] Physician GroupComment on above: Result Comment: Random Glucose Reference Range is dependent on time and content of last meal. Glucose of more than 200 mg/dL in a nonstressed, ambulatory subject supports the diagnosis of Diabetes Mellitus. ADA recommended reference rangePerformed By: #### MG, BMP ####[place] [address] USAPotassium [Moles/Vol]4.5 mmol/LNormal3.5-5.1The [facility] Physician GroupComment on above:Performed By: #### MG, BMP ####[place] [address] USASodium [Moles/Vol]135 mmol/KAju862-799Xud [facility] Physician Group Comment on above:Performed By: #### MG, BMP ####[address] [address] USAUrea nitrogen [Mass/Vol]13 mg/dLNormal 7-25The [facility] Physician GroupComment on above:Performed By: #### MG, BMP ####[address] [address] USAECG 12 lead ECGon 07-04-5267ROU 12 lead ECGPARKVIEW HEALTH [facility] Main [place] [id number] Electrocardiograph Report Signed Patient: Mary Mcadams MR#: [id number] 3267 : 1955 Acct:[id number] Age/Sex: 68 / M ADM Date: 07/03/24 Loc: Room: [address] [place] [address] Type: ADM IN Attending Dr: Ambrose Hsieh MD Ordering Provider: Shannon Gonzalez MD, [facility] Date of Service: 07/07/24 ECG/ECG 12 lead ECG: QTC prolongation Copies to: Test Reason : Blood Pressure : */* mmHG Vent. Rate : 84 BPM Atrial Rate : 84 BPM P-R Int : 204 ms QRS Dur : 126 ms QT Int : 382 ms P-R-T Axes : 58 -45 223 degrees QTcB Int : 451 ms Normal sinus rhythm Left axis deviation Left ventricular hypertrophy with QRS widening and repolarization abnormality ( R in aVL , Lloyd product ) Abnormal ECG When compared with ECG of 06-Jul-2024 08:34, No significant change was found Confirmed by Andres Herrera ([id number]) on 07/07/2024 1:01:29 PM Referred By: Electronically Signed By: Andres Herrera Transcribed By: MUS Signed By Andres Herrera MD 07/07/[address] [place] [address] Physician GroupMagnesiumon 65-68-3425Hkaaxzolh [Mass/Vol]1.6 mg/dLLow1.9-2.7The [facility] Physician GroupComment on above: Result Comment: PERFORMED BY: [place] [id number] PATHOLOGIST DATA ENTRY COORDINATOR MALLORIE GARCIA M.D.Performed By: #### MG, BMP ####[facility] [address] [place] [address] USAMagnesium [Mass/volume] in Serum or PlasmaOrdered By: Ambrose Hsieh on 42-91-8925Taqrbnqxl [Mass/Vol] Magnesium [Mass/volume] in Serum or PlasmaLow1.9-2.7FUniversity Hospitals Geauga Medical CenterECG 12 lead ECGon 83-02-4687VJU 12 lead [facility] [place] [address] Electrocardiograph Report Signed Patient: Mary Mcadams MR#: [id number] 3267 : 1955 Acct:[id number] Age/Sex: 68 / M ADM Date: 07/03/24 Loc: Room: [address] [place] [address] Type: ADM IN Attending Dr: Ambrose Hsieh MD Ordering Provider: Shannon Gonzalez MD, [facility] Date of Service: 07/06/24 ECG/ECG 12 lead ECG: QTC prolongation Copies to: Test Reason : Blood Pressure : */* mmHG Vent. Rate : 81 BPM Atrial Rate : 81 BPM P-R Int : 204 ms QRS Dur : 132 ms QT Int : 392 ms P-R-T Axes : 46 -36 177 degrees QTcB Int : 455 ms Normal sinus rhythm Left axis deviation Left ventricular hypertrophy with QRS widening and repolarization abnormality ( R in aVL , [place] product ) Abnormal ECG When compared with ECG of 05-Jul-2024 08:45, premature atrial complexes are no longer present QRS axis shifted left Confirmed by Andres Herrera ([id number]) on 07/06/2024 8:25:14 PM Referred By: Electronically Signed By: Andres Herrera Transcribed By: MUS Signed By Andres Herrera MD 07/06/242024[facility] Physician GroupErythrocyte distribution width Auto (RBC) [Ratio]Ordered By: Ambrose Hsieh on 43-43-2856Xcqrbnykabk distribution width (RBC) [Ratio]Erythrocyte distribution width [Ratio] by Automated count High12.0-14.8[facility] Medical CenterHematocrit Auto (Bld) [Volume fraction]Ordered By: Ambrose Hsieh on 52-48-6271Vqoeljxrhs (Bld) [Volume fraction]Hematocrit [Volume Fraction] of Blood by Automated xcqvhZsq11.8-50.0 [facility] Medical CenterHemoglobin [Mass/volume] in BloodOrdered By: Ambrose Hsieh on 37-94-3224Taalmnhcjb (Bld) [Mass/Vol]Hemoglobin [Mass/volume] in NoyidJix56.0-17.0[facility] Medical CenterHemogram CBC Without Diffon 65-86-4045Rakbgwtbvvj distribution width (RBC) [Ratio]16.0 %High12.0-14.8The [facility] Physician GroupComment on above:Performed By: #### BMP #### [place] [address] USAHematocrit (Bld) [Volume fraction]24.3 %Low38.8-50.0The [facility] Physician GroupComment on above:Performed By: #### BMP #### [place] [address] USAHemoglobin (Bld) [Mass/Vol]8.2 g/dLLow13.0-17.0The [facility] Physician GroupComment on above:Performed By: #### BMP #### [place] [address] USAMCH (RBC) [Entitic mass]27.9 fuGwsrpo38.5-35.2The [facility] Physician GroupComment on above:Performed By: #### BMP #### [place] [address] USAMCV (RBC) [Entitic vol]83.1 fLLow83.5-101The [facility] Physician GroupComment on above:Performed By: #### BMP #### [place] [address] USAMean Corpuscular HGB Conc33.6 g/nQDhlpvm19.5-35.6The [facility] Physician GroupComment on above:Performed By: #### BMP #### [place] [address] USAPlatelet mean volume (Bld) [Entitic vol]7.2 fLNormal 6.6-10.1The [facility] Physician GroupComment on above:Result Comment: PERFORMED BY: [place] [address] PATHOLOGIST DATA ENTRY COORDINATOR MALLORIE GARCIA M.D.Performed By: #### BMP #### [place] [address] USAPlatelets (Bld) [#/Vol]294 10*3/xJJbfume585-310Urs [facility] Physician GroupComment on above:Performed By: #### BMP #### [facility] [address] [place] [address] USARBC (Bld) [#/Vol]2.93 10*6/uLLow3.90-5.60The [facility] Physician GroupComment on above:Performed By: #### BMP #### [facility] [address] [place] [address] USAWBC (Bld) [#/Vol]5.2 10*3/uLNormal4.1-10.5The [facility] Physician GroupComment on above:Performed By: #### BMP #### [facility] [address] [place] [address] USALeukocytes [#/volume] corrected for nucleated erythrocytes in Blood by Automated counOrdered By: Ambrose Hsieh on 23-78-7202YXK corrected for nucl RBC Auto (Bld) [#/Vol]Leukocytes [#/volume] corrected for nucleated erythrocytes in Blood by Automated coun4.1-10.5FUniversity Hospitals Geauga Medical Center MCH Auto (RBC) [Entitic mass]Ordered By: Ambrose Hsieh on 31-57-1199KWP (RBC) [Entitic mass]MCH [Entitic mass] by Automated count27.5-35.2FUniversity Hospitals Geauga Medical CenterMCHC Auto (RBC) [Mass/Vol]Ordered By: Ambrose Hsieh on 07-06-2024 MCHC (RBC) [Mass/Vol]MCHC [Mass/volume] by Automated count32.5-35.6FUniversity Hospitals Geauga Medical CenterMCV Auto (RBC) [Entitic vol]Ordered By: Ambrose Hsieh on 32-61-6724EDD (RBC) [Entitic vol]MCV [Entitic volume] by Automated countLow 83.5-101[facility] Medical CenterPlatelet mean volume Auto (Bld) [Entitic vol]Ordered By: Ambrose Hsieh on 82-67-1106Qtvfrpuj mean volume (Bld) [Entitic vol]Platelet mean volume [Entitic volume] in Blood by Automated count 6.6-10.1FUniversity Hospitals Geauga Medical CenterPlatelets Auto (Bld) [#/Vol]Ordered By: Ambrose Hsieh on 84-62-1943Wamprtopz (Bld) [#/Vol]Platelets [#/volume] in Blood by Automated hdawi096-057OgehkhuazKettering Health Behavioral Medical CenterRBC Auto (Bld) [#/Vol] Ordered By: Ambrose Hsieh on 68-51-3598ARU (Bld) [#/Vol]Erythrocytes [#/volume] in Blood by Automated countLow3.90-5.60[facility] Behavioral Medical CenterECG 12 lead ECGon 82-76-4638OHN 12 lead ECGPARKVIEW HEALTH BR[facility]AN [facility]OSPITAL Main [place] [address] [place] [address] Electrocardiograph Report Signed Patient: Mary Mcadams MR#: [id number] 3267 : 1955 Acct:[id number] Age/Sex: 68 / M ADM Date: 07/03/24 Loc: Room: [address] [place] [address] Type: ADM IN Attending Dr: Ambrose Hsieh MD Ordering Provider: Shannon Gonzalez MD, [facility] Date of Service: 07/05/24 ECG/ECG 12 lead ECG: QTC prolongation Copies to: Test Reason : Blood Pressure : */* mmHG Vent. Rate : 94 BPM Atrial Rate : 94 BPM P-R Int : 204 ms QRS Dur : 130 ms QT Int : 396 ms P-R-T Axes : -14 102 212 degrees QTcB Int : 495 ms Sinus rhythm with premature atrial complexes Rightward axis Nonspecific intraventricular block Abnormal ECG When compared with ECG of 04-Jul-2024 07:35, premature atrial complexes are now present T wave inversion now evident in Inferior leads QT has shortened Confirmed by Andres Herrera ([id number]) on 07/05/2024 5:14:01 PM Referred By: Electronically Signed By: Andres Herrera Transcribed By: MUS Signed By Andres Herrera MD 07/05/24 1714[facility] Physician GroupHemogram CBC Without Diffon 38-16-8500Oegrsvynyex distribution width (RBC) [Ratio]15.9 %High12.0-14.8ThBenewah Community Hospital Physician GroupComment on above:Performed By: #### BMP #### [place] [address] USAHematocrit (Bld) [Volume fraction]24.8 %Low38.8-50.0The [facility] Physician GroupComment on above:Performed By: #### BMP #### [place] [address] USAHemoglobin (Bld) [Mass/Vol]8.4 g/dLLow13.0-17.0The [facility] Physician GroupComment on above:Performed By: #### BMP #### [place] [address] USAMCH (RBC) [Entitic mass]28.0 nyMoytuc01.5-35.2The [facility] Physician GroupComment on above:Performed By: #### BMP #### [place] [address] USAMCV (RBC) [Entitic vol]83.0 fLLow83.5-101The [facility] Physician GroupComment on above:Performed By: #### BMP #### [place] [address] USAMean Corpuscular HGB Conc33.7 g/aXMnzbpk79.5-35.6The [facility] Physician GroupComment on above:Performed By: #### BMP #### [place] [address] USAPlatelet mean volume (Bld) [Entitic vol]7.0 fLNormal 6.6-10.1The [facility] Physician GroupComment on above:Result Comment: PERFORMED BY: [place] [address] PATHOLOGIST DATA ENTRY COORDINATOR MALLORIE GARCIA M.D.Performed By: #### BMP #### [place] [address] USAPlatelets (Bld) [#/Vol]277 10*3/cYYycrzs981-279Sji [facility] Physician GroupComment on above:Performed By: #### BMP #### [address] [place] [address] USARBC (Bld) [#/Vol]2.99 10*6/uLLow3.90-5.60The [facility] Physician GroupComment on above:Performed By: #### BMP #### [facility] [address] [place] [address] USAWBC (Bld) [#/Vol]4.3 10*3/uLNormal4.1-10.5The [facility] Physician GroupComment on above:Performed By: #### BMP #### [facility] [address] [place] [address] USAAmphetamine Screen Ql (U)Ordered By: Susanne Motley on 05-58-0219Bxvkvosbxdwb Ql (U)Amphetamines screenNegChillicothe HospitalAppearance of UrineOrdered By: Susanne Motley on 07-04-2024 Appearance (U)Urine appearanceAbnoOhioHealth Southeastern Medical Center Bacteria [Presence] in Urine by AutomatedOrdered By: Susanne Motley on 68-58-8836Dbxyubhf Auto Ql (U)Bacteria [Presence] in Urine by AutomatedHighNone [facility] Medical CenterBarbiturates [Presence] in Urine by Screen methodOrdered By: Susanne Motley on 13-70-2833Swdwkidfdsse Screen Ql (U) Barbiturates [Presence] in Urine by Screen methodNegChillicothe HospitalBasic Metabolic Panelon 42-37-3151Lmvfi gap [Moles/Vol]13.7 mmol/L Normal6.0-15.0The [facility] Physician GroupComment on above:Performed By: #### BMP, PAB, MG, CBC ####[facility] [address] [place] [address] USACalcium [Mass/Vol]8.9 mg/dLNormal8.6-10.3The [facility] Physician GroupComment on above:Performed By: #### BMP, PAB, MG, CBC ####[facility] [address] [place] [address] USAChloride [Moles/Vol] 103 mmol/KDpnhwn34-207Ief [facility] Physician GroupComment on above:Performed By: #### BMP, PAB, MG, CBC ####[place] [address] USACO2 [Moles/Vol]22.1 mmol/FBlunns65.0-31.0The [facility] Physician GroupComment on above:Performed By: #### BMP, PAB, MG, CBC ####[place] [address] [place] Creatinine [Mass/Vol]0.85 mg/dLNormal0.70-1.30The [facility] Physician Group Comment on above:Performed By: #### BMP, PAB, MG, CBC ####[place] [address] USACreatinine Clr Calc Pharmacy 73.90NormCity Hospitale [facility] Physician GroupComment on above:Performed By: #### BMP, PAB, MG, CBC ####[place] [address] USAGFR/1.73 sq M.predicted MDRD (S/P/Bld) [Vol rate/Area]mL/min/{1.73_m2} NormalThe [facility] Physician GroupComment on above:Performed By: #### BMP, PAB, MG, CBC ####[place] [address] USAGlucose [Mass/Vol]77 mg/kARsbfqe20-674Pez [facility] Physician GroupComment on above:Result Comment: Random Glucose Reference Range is dependent on time and content of last meal. Glucose of more than 200 mg/dL in a nonstressed, ambulatory subject supports the diagnosis of Diabetes Mellitus. ADA recommended reference rangePerformed By: #### BMP, PAB, MG, CBC ####[place] [id number] [place] Potassium [Moles/Vol]3.8 mmol/LNormal3.5-5.1The [facility] Physician GroupComment on above:Performed By: #### BMP, PAB, MG, CBC ####[place] [address] USASodium [Moles/Vol]135 mmol/NXww454-282 The [facility] Physician GroupComment on above:Performed By: #### BMP, PAB, MG, CBC ####[facility] [address] [place] [address] [place] Urea nitrogen [Mass/Vol]12 mg/dLNormal7-25The [facility] Physician GroupComment on above:Performed By: #### BMP, PAB, MG, CBC ####[facility] [address] [place] [address] USABasophils Auto (Bld) [#/Vol]Ordered By: Maricruz Godoy on 48-23-0021Xovzgexsd (Bld) [#/Vol]Automated basophil count 0.0-0.2FUniversity Hospitals Geauga Medical CenterBasophils/100 WBC Auto (Bld)Ordered By: Maricruz Godoy on 13-59-9289Xnoyjtvxd/100 WBC (Bld)Automated basophil %.[facility] Medical CenterBenzodiazepines Screen Ql (U)Ordered By: Susanne Motley on 31-56-4565Rcyyxzorzmdrffw Ql (U)Benzodiazepines [Presence] in Urine by Screen methodNegChillicothe HospitalBenzoylecgonine [Presence] in Urine by Screen methodOrdered By: Susanne Motley on 73-19-2479Ueomeezghujfysa Screen Ql (U)Benzoylecgonine [Presence] in Urine by Screen methodNegative [facility] Medical CenterBilirubin Test strip Ql (U)Ordered By: Susanne Motley on 40-74-5610Zehaeuwvd Ql (U)Bilirubin.total [Presence] in Urine by Test stripNegChillicothe HospitalCannabinoids [Presence] in Urine by Screen methodOrdered By: Susanne Motley on 69-88-0485Wjbfkaxmdtvx Screen Ql (U)Cannabinoids [Presence] in Urine by Screen methodNegChillicothe HospitalCommemorial healthcare on above:These are unconfirmed results and should not be used for legal purposes. Drug Cut-Off Concentration: AMPH 1000 ng/mL TAHIRA 200 ng/mL KEHINDE 200 ng/mL COCM 300 ng/mL OP 300 ng/mL PCP 25 ng/mL THC 20 ng/mLColor Auto (U)Ordered By: Susanne Motley on 42-86-0477Uswnj (U)Color of Urine by Auto [facility] HospitalComplete Blood Count Auto Diffon 52-32-6012Hldcnjkbx (Bld) [#/Vol]0.0 10*3/uLNormal0.0-0.2The [facility] Physician GroupComment on above:Result Comment: PERFORMED BY: [facility] [address] [facility] [place] [address] PATHOLOGIST DATA ENTRY COORDINATOR MALLORIE GARCIA M.D.Performed By: #### BMP, PAB, MG, CBC ####[place] [address] USABasophils/100 WBC (Bld)0.5 %Normal.The [facility] Physician GroupComment on above:Performed By: #### BMP, PAB, MG, CBC ####[place] [address] USAEosinophils (Bld) [#/Vol]0.2 10*3/uLNormal0.0-0.45 The [facility] Physician GroupComment on above:Performed By: #### BMP, PAB, MG, CBC ####[place] [address] [place] Eosinophils/100 WBC (Bld)3.2 %Normal.The [facility] Physician GroupComment on above:Performed By: #### BMP, PAB, MG, CBC ####[place] [address] USAErythrocyte distribution width (RBC) [Ratio]16.2 %High12.0-14.8The [facility] Physician GroupComment on above: Performed By: #### BMP, PAB, MG, CBC ####[place] [address] USAHematocrit (Bld) [Volume fraction]26.0 %Low 38.8-50.0The [facility] Physician GroupComment on above:Performed By: #### BMP, PAB, MG, CBC ####[place] [address] USAHemoglobin (Bld) [Mass/Vol]8.8 g/dLLow13.0-17.0The [facility] Physician GroupComment on above:Performed By: #### BMP, PAB, MG, CBC ####[place] [address] USALymphocytes (Bld) [#/Vol]0.7 10*3/uLLow1.00-4.8The [facility] Physician GroupComment on above: Performed By: #### BMP, PAB, MG, CBC ####[place] [address] USALymphocytes/100 WBC (Bld)12.4 %Normal.The [facility] Physician GroupComment on above:Performed By: #### BMP, PAB, MG, CBC ####[address] StreetMCH (RBC) [Entitic mass]28.0 ikLexjgl73.5-35.2The [facility] Physician GroupComment on above:Performed By: #### BMP, PAB, MG, CBC ####[address]MCV (RBC) [Entitic vol]83.4 fLLow 83.5-101The [facility] Physician GroupComment on above:Performed By: #### BMP, PAB, MG, CBC ####[place] [address] USAMean Corpuscular HGB Conc33.6 g/eFPfdoca71.5-35.6The [facility] Physician GroupComment on above:Performed By: #### BMP, PAB, MG, CBC ####[place] [address] [place] Monocytes (Bld) [#/Vol]0.7 10*3/uLNormal0.0-0.8The [facility] Physician Group Comment on above:Performed By: #### BMP, PAB, MG, CBC ####[place] [address] USAMonocytes/100 WBC (Bld)12.3 % Normal.The [facility] Physician GroupComment on above:Performed By: #### BMP, PAB, MG, CBC ####[place] [address] USANeutrophils (Bld) [#/Vol]3.9 10*3/uLNormal1.8-7.7The [facility] Physician GroupComment on above:Performed By: #### BMP, PAB, MG, CBC ####[address] Neutrophils/100 WBC (Bld)71.6 %Normal.The [facility] Physician GroupComment on above:Performed By: #### BMP, PAB, MG, CBC ####[place] [address] USANRBC%0.1 /100{WBC}Normal0-0.5The [facility] Physician GroupComment on above:Performed By: #### BMP, PAB, MG, CBC ####[address] Platelet mean volume (Bld) [Entitic vol]7.6 fLNormal6.6-10.1The [facility] Physician GroupComment on above:Performed By: #### BMP, PAB, MG, CBC ####[place] [address] [place] Platelets (Bld) [#/Vol]296 10*3/vIQqujwb537-785Eed [facility] Physician Group Comment on above:Performed By: #### BMP, PAB, MG, CBC ####[place] [address] USARBC (Bld) [#/Vol]3.12 10*6/uL Low3.90-5.60The [facility] Physician GroupComment on above:Performed By: #### BMP, PAB, MG, CBC ####[place] [address] USAWBC (Bld) [#/Vol]5.4 10*3/uLNormal4.1-10.5The [facility] Physician GroupComment on above:Performed By: #### BMP, PAB, MG, CBC ####[facility] [place] [address] USACrystals [Presence] in Urine by AutomatedOrdered By: Susanne Motley on 46-27-2931Bvbusgmk Auto Ql (U)Crystals [Presence] in Urine by AutomatedKettering Health Behavioral Medical Center Dipstick and Microscopicon 85-17-3215Fwjlidohnj (U)TurbidCritically abnormal ClearThe [facility] Physician GroupComment on above:Order Comment: Name Collection Type:: Straight CatheterPerformed By: #### ADDONUAPLUS, CUU ####Stephanie [id number] [facility], [id number] [place] Bacteria,Urine4+HighNone SeenThe [facility] Physician GroupComment on above:Order Comment: Name Collection Type:: Straight CatheterPerformed By: #### ADDONUAPLUS, CUU ####[address] [address] USABilirubin,UrineNegativeNormalNegativeThe [facility] Physician Group Comment on above:Order Comment: Name Collection Type:: Straight Catheter Performed By: #### ADDONUAPLUS, CUU ####[address], [place] USABudding Yeast,Urine3+HighNone SeenThe [facility] Physician GroupComment on above:Order Comment: Name Collection Type:: Straight CatheterPerformed By: #### ADDONUAPLUS, CUU ####[address], [place] USAColor (U)YellowNormalYellowThe [facility] Physician GroupComment on above:Order Comment: Name Collection Type:: Straight CatheterPerformed By: #### ADDONUAPLUS, CUU ####[place] [address] [facility], [place] USAGlucose Ql (U)NormalNormal NormalThe [facility] Physician GroupComment on above:Order Comment: Name Collection Type:: Straight CatheterPerformed By: #### ADDONUAPLUS, CUU ####[address], [place] USAHyaline Casts,UrineNoneNormal0-8The [facility] Physician GroupComment on above:Order Comment: Name Collection Type:: Straight CatheterPerformed By: #### ADDONUAPLUS, CUU ####[place] [address] [facility], [id number] [place] Ketones Ql (U)NegativeNormalNegativeLakewood Ranch Medical Center Physician GroupComment on above:Order Comment: Name Collection Type:: Straight CatheterPerformed By: #### ADDONUAPLUS, CUU ####[address] [place] [address] USALeukocyte esterase Test strip Ql (U)4+HighNegativeThe [facility] Physician GroupComment on above:Order Comment: Name Collection Type:: Straight CatheterPerformed By: #### ADDONUAPLUS, CUU ####[address], [place] USANitrite,UrineNegativeNormalNegativeLakewood Ranch Medical Center Physician GroupComment on above:Order Comment: Name Collection Type:: Straight CatheterPerformed By: #### ADDONUAPLUS, CUU ####[place] [address] Mccartyangela Ferreiranovant health thomasville medical centerjacklyn, [address] USANon-Squamous Epithelial Cell,U 3-4HighNone SeenThe [facility] Physician GroupComment on above:Order Comment: Name Collection Type:: Straight CatheterPerformed By: #### ADDONUAPLUS, CUU ####[address], [place] USAOccult Blood,Urine3+HighNegativeThe [facility] Physician GroupComment on above:Order Comment: Name Collection Type:: Straight CatheterResult Comment: PERFORMED BY: [facility] [address] [place] [address] PATHOLOGIST DATA ENTRY COORDINATOR MALLORIE GARCIA M.D.Performed By: #### ADDLATONIAPLUS, CUU ####[address], [address] USAOthe Crystals,Urine1+ NormalThe [facility] Physician GroupComment on above:Order Comment: Name Collection Type:: Straight CatheterPerformed By: #### ADDONUAPLUS, CUU ####[address] [place], XZ[address] USApH (U) 6.0 [pH]Normal5.0-9.0The [facility] Physician GroupComment on above:Order Comment: Name Collection Type:: Straight CatheterPerformed By: #### ADDCARUAPLUS, CUU ####[place] [address] [address] [place], [place] [place] Protein (U) [Mass/Vol]30 mg/dLHighNegativeThe [facility] Physician GroupComment on above:Order Comment: Name Collection Type:: Straight CatheterPerformed By: #### ADDCARUAPLUS, CUU ####[address] Ferreiranovant health thomasville medical centerjacklynSHAGEL[place], [place] USARBC,UrineInnumerableHigh0-4The [facility] Physician GroupComment on above:Order Comment: Name Collection Type:: Straight Catheter Performed By: #### MEGHA, CUU ####[address] [facility]anovant [facility] medical centerjacklyn, [place] USASpecificy [place],Urine1.513Scbv8.001-1.030The [facility] Physician GroupComment on above:Order Comment: Name Collection Type:: Straight CatheterPerformed By: #### MEGHA, CUU ####[address] Hannanovant health thomas[facility] medical centerjacklynSHAGEL[place], [place] USASperm,Tqfab4-5Qgqe8-1Bpf [facility] Physician GroupComment on above:Order Comment: Name Collection Type:: Straight CatheterResult Comment: PERFORMED BY: [facility] [address] [place] [address] PATHOLOGIST DATA ENTRY COORDINATOR MALLORIE GARCIA M.D.Performed By: #### MEGHA, CUU ####[address] [facility]anov[facility] medical center[place]lyn, [place] USAUrobilinogen,Urine NormalNormalNormalThe [facility] GroupComment on above:Order Comment: Name Collection Type:: Straight CatheterPerformed By: #### DYLONPLUS, CUU ####[address] Hannanov[facility] [place], [place] USAWBC CLUMP, UrineManyHighNone SeenThe [facility] Physician GroupComment on above:Order Comment: Name Collection Type:: Straight CatheterPerformed By: #### MEGHA, CUU ####[facility] [place] [address] USAWBC,UrineInnumerableHigh0-4The [facility] Physician GroupComment on above:Order Comment: Name Collection Type:: Straight CatheterPerformed By: #### ADDLATONIAPLUS, CUU ####[facility] [place], [place] [id number] USADrug Screen,Urineon 16-38-6031Pkyiapxofld Screen,UrineNegativeNormal NegativeThe [facility] Physician GroupComment on above:Performed By: #### BMP #### [place] [address] USABarbiturate Screen,UrineNegativeNormalNegativeThe [facility] Physician GroupComment on above:Performed By: #### BMP #### [place] [address] USABenzodiazepines Screen,UrineNegativeNormalNegativeThe [facility] Physician GroupComment on above:Performed By: #### BMP #### [place] [address] USACannabinoid Screen,UrineNegativeNormalNegativeLakewood Ranch Medical Center Physician GroupComment on above:Result Comment: These are unconfirmed results and should not be used for legal purposes. Drug Cut-Off Concentration: AMPH 1000 ng/mL TAHIRA 200 ng/mL KEHINDE 200 ng/mL COCM 300 ng/mL OP 300 ng/mL PCP 25 ng/mL THC 20 ng/mL PERFORMED BY: [place] [address] PATHOLOGIST DATA ENTRY COORDINATOR MALLORIE GARCIA M.D.Performed By: #### BMP #### [place] [address] USACocaine Screen,UrineNegativeNormalNegativeThe [facility] Physician GroupComment on above:Performed By: #### BMP #### [facility] [address] [place] [address] USAOpiate Screen,UrineNegativeNormalNegativeLakewood Ranch [facility] Center Physician GroupComment on above:Performed By: #### BMP #### [facility] [address] [place] [address] USAPhencyclidine Screen,UrineNegativeNormalNegativeThe [facility] Physician GroupComment on above:Performed By: #### BMP #### [facility] [address] [place] [address] USAECG 12 lead ECGon 99-19-7192YSS 12 lead ECGPARKVIEW [facility]ALTH [facility] [place] [address] [place] [address] Electrocardiograph Report Signed Patient: Mary Mcadams MR#: [id number] : 1955 Acct:[id number] Age/Sex: 68 / M ADM Date: 07/03/24 Loc: Room: [address] [place] [address] Type: ADM IN Attending Dr: Ambrose Hsieh MD Ordering Provider: Maricruz Godoy APRN Date of Service: 07/04/24 ECG/ECG 12 lead ECG: prolonged QTc on dofetilide Copies to: Test Reason : Blood Pressure : */* mmHG Vent. Rate : 85 BPM Atrial Rate : 85 BPM P-R Int : 216 ms QRS Dur : 130 ms QT Int : 478 ms P-R-T Axes : -27 103 131 degrees QTcB Int : 568 ms Sinus rhythm with 1st degree AV block Rightward axis Nonspecific intraventricular block Abnormal ECG When compared with ECG of 03-Jul-2024 23:35, premature atrial complexes are no longer present ME interval has increased Questionable change in QRS axis T wave inversion no longer evident in Inferior leads Confirmed by Andres Herrera ([id number]) on 07/04/2024 2:11:13 PM Referred By: Electronically Signed By: Andres Herrera Transcribed By: MUS Signed By Andres Herrera MD 07/04/24 1411[facility] Physician GroupEosinophils Auto (Bld) [#/Vol] Ordered By: Maricruz Godoy on 57-85-6626Nasnumlumzk (Bld) [#/Vol]Automated eosinophil count0.0-0.45[facility] CenterEosinophils/100 WBC Auto (Bld)Ordered By: Maricruz Godoy on 24-73-8234Dptifygocpr/100 WBC (Bld) Automated eosinophil %.[facility] Medical CenterEpithelial cells.non- squamous [#/area] in Urine sediment by Automated countOrdered By: Susanne Motley on 52-66-4858Lawtrtgffw cells.non-squamous Auto (Urine sed) [#/Area]Epithelial cells.non-squamous [#/area] in Urine sediment by Automated countHighNone Seen [facility] Medical CenterEpithelial cells.squamous [#/area] in Urine sediment by Automated countOrdered By: Susanne Motley on 25-85-1991Pldsuqxdln cells.squamous Auto (Urine sed) [#/Area]Epithelial cells.squamous [#/area] in Urine sediment by Automated countKettering Health Behavioral Medical CenterErythrocytes [#/area] in Urine sediment by Automated countOrdered By: Susanne Motley on 94-82-7207YOQ Auto (Urine sed) [#/Area]Erythrocytes [#/area] in Urine sediment by Automated countHigh0-4FUniversity Hospitals Geauga Medical CenterGlucose [Mass/volume] in Urine by Test stripOrdered By: Susanne Motley on 95-39-9743Dydqjms Test strip (U) [Mass/Vol]Glucose [Mass/volume] in Urine by Test stripNormalKettering Health Behavioral Medical CenterHemoglobin Test strip Ql (U)Ordered By: Susanne Motley on 95-30-9146Qgzxxbtgwr Ql (U)Hemoglobin [Presence] in Urine by Test stripHigh NegativeKettering Health Behavioral Medical CenterHyaline casts [#/area] in Urine sediment by Automated countOrdered By: Susanne Motley on 15-02-9878Wuehans casts Auto (Urine sed) [#/Area]Hyaline casts [#/area] in Urine sediment by Automated count0-8[facility] Medical CenterKetones Test strip Ql (U)Ordered By: Susanne Motley on 26-36-6621Zkmovoy Ql (U)Ketones [Presence] in Urine by Test stripNegativeKettering Health Behavioral Medical CenterLeukocyte clumps [Presence] in Urine by AutomatedOrdered By: Susanne Motley on 03-07-2548Jzhamowrr clumps Auto Ql (U)Leukocyte clumps [Presence] in Urine by AutomatedHighNone SeenKettering Health Behavioral Medical CenterLeukocyte esterase [Presence] in Urine by Test strip Ordered By: Susanne Motley on 60-02-8071Ncpjdwhbx esterase Test strip Ql (U) Leukocyte esterase [Presence] in Urine by Test stripHighNegativeKettering Health Behavioral Medical CenterLeukocytes [#/area] in Urine sediment by Automated count Ordered By: Susanne Motley on 17-56-5137WWT Auto (Urine sed) [#/Area]Leukocytes [#/area] in Urine sediment by Automated countHigh0-4FUniversity Hospitals Geauga Medical CenterLymphocytes Auto (Bld) [#/Vol]Ordered By: Maricruz Godoy on 07-04-2024 Lymphocytes (Bld) [#/Vol]Lymphocytes [#/volume] in Blood by Automated countLow 1.00-4.8[facility] Medical CenterLymphocytes/100 WBC Auto (Bld)Ordered By: Maricruz Godoy on 75-95-7961Wrxcwssywto/100 WBC (Bld)Lymphocytes/100 leukocytes in Blood by Automated count.[facility] Medical CenterMagnesiumon 34-35-1534Uviqaaerk [Mass/Vol]1.9 mg/dLNormal1.9-2.7The [facility] Physician GroupComment on above:Performed By: #### BMP, PAB, MG, CBC ####[facility] [address] [place] [address] USAMonocytes Auto (Bld) [#/Vol]Ordered By: Maricruz Godoy on 02-28-2269Oaxqtdfty (Bld) [#/Vol]Automated blood monocyte count0.0-0.8[facility] Medical CenterMonocytes/100 WBC Auto (Bld)Ordered By: Maricruz Godoy on 86-61-5589Srguraiao/100 WBC (Bld)Automated monocyte %.[facility] Medical CenterNeutrophils Auto (Bld) [#/Vol] Ordered By: Maricruz Godoy on 61-69-6061Vboqswogmxd (Bld) [#/Vol]Neutrophils [#/volume] in Blood by Automated count1.8-7.7FUniversity Hospitals Geauga Medical Center Neutrophils/100 WBC Auto (Bld)Ordered By: Maricruz Godoy on 07-04-2024 Neutrophils/100 WBC (Bld)Automated neutrophil %.[facility] Medical CenterNitrite Test strip Ql (U)Ordered By: Susanne Motley on 57-40-8408Pkeaqna Ql (U)Nitrite [Presence] in Urine by Test stripNegativeKettering Health Behavioral Medical CenterNucleated erythrocytes [Presence] in Blood by Automated count Ordered By: Maricruz Godoy on 76-09-9174Zrtyvbmkl RBC Auto Ql (Bld)Nucleated erythrocytes [Presence] in Blood by Automated count0-0.5FUniversity Hospitals Geauga Medical CenterOpiates [Presence] in Urine by Screen methodOrdered By: Susanne Motley on 41-69-7570Qtjqobt Screen Ql (U)Opiates [Presence] in Urine by Screen methodNegativeKettering Health Behavioral Medical CenterPhencyclidine Screen Ql (U) Ordered By: Susanne Motley on 19-18-8637Baifoxbwbiswf Ql (U)Phencyclidine [Presence] in Urine by Screen methodNegChillicothe Hospital Prealbuminon 00-67-9270Cdpbtxkxnk [Mass/Vol]4.2 mg/dLLow17.0-34.0The [facility] Physician GroupComment on above:Result Comment: PERFORMED BY: [facility] [address] [place] [address] PATHOLOGIST DATA ENTRY COORDINATOR MALLORIE GARCIA M.D.Performed By: #### BMP, PAB, MG, CBC ####[facility] [address] [place] [address] USAPrealbumin [Mass/volume] in Serum or PlasmaOrdered By: Maricruz Godoy on 87-62-8534Ddtribdicc [Mass/Vol]Prealbumin [Mass/volume] in Serum or ZbhwjjSix99.0-34.0[facility] Medical CenterProtein Test strip (U) [Mass/Vol]Ordered By: Susanne Motley on 39-21-8343Piqanrr (U) [Mass/Vol]Protein [Mass/volume] in Urine by Test stripHighNegNewark Hospitalpecific gravity Test strip (U) [Rel density]Ordered By: Susanne Motley on 54-11-8487Vvwnotzi gravity (U) [Rel density]Specific gravity of Urine by Test stripHigh1.001-1.030Morrow County Hospitalpermatozoa [#/area] in Urine sediment by Automated count Ordered By: Susanne Motley on 63-69-0575Jqbirjdfckc Auto (Urine sed) [#/Area] Spermatozoa [#/area] in Urine sediment by Automated countHigh0-2FUniversity Hospitals Geauga Medical CenterUS venous duplex LE BIon 29-72-3804KC venous duplex LE BI [facility] Main [place] [address] [place], [place] [address] Ultrasound Report Signed Patient: Mary Mcadams MR#: [id number] : 1955 Acct:[id number] Age/Sex: 68 / M ADM Date: 07/03/24 Loc: Room: [address] [place] [address] Type: ADM IN Attending Dr: Ambrose Hsieh MD Ordering Provider: Susanne Motley MD Date of Service: 07/03/24 US/US venous duplex LE BI: r/o dvt, missed xarelto, int R leg swell Copies to: MD Ambrose Urias MD BILATERAL LOWER EXTREMITY VENOUS DUPLEX INDICATION: Bilateral [...] DEEP VEIN THROMBOSIS OR PROXIMAL SUPERFICIAL THROMBOPHLEBITIS IN THE RIGHT OR LEFT LOWER EXTREMITY. Impression dictated by: Baudilio Moura MD07/04/2024 8:38 AM Dictation Location: [facility]04 Tech: Melanie Garcia Transcribed By: JEANIE 07/04/24 0838 Dictated By: Baudilio Moura MD 07/04/24837 Signed By: 07/04/24 0838NoWakeMed Cary Hospital Physician GroupUrine Cultureon 07-04-2024 Bacteria identified Cx Nom (U)ORGANISM: Strep agalactiae - (group b) (O:STRAGA) [place] Count >100,000 Organism Comments Pure Growth PERFORMED BY: [address] [address] PATHOLOGIST DATA ENTRY COORDINATOR MALLORIE GARCIA M.D.NormalThe [facility] Physician GroupComment on above: Performed By: #### MEGHA, CUU ####[facility] [address] [place], [place] USAUrine cultureOrdered By: Susanne Motley on 64-29-7452Qlzcygyx identified Cx Nom (U)Group B Strep (Streptococcus agalactiae) AbnormalKettering Health Behavioral Medical CenterUrobilinogen Test strip (U) [Mass/Vol] Ordered By: Susanne Motley on 75-41-2126Fuajweeeptpu (U) [Mass/Vol]Urobilinogen [Mass/volume] in Urine by Test stripNormalKettering Health Behavioral Medical CenterWBC Auto (Bld) [#/Vol]Ordered By: Maricruz Godoy on 91-85-6543EVN (Bld) [#/Vol] Leukocytes [#/volume] in Blood by Automated count4.1-10.5FUniversity Hospitals Geauga Medical CenterYeast.budding [Presence] in Urine by Computer assisted method Ordered By: Susanne Motley on 01-02-9922Eautv.budding Computer assisted Ql (U) Yeast.budding [Presence] in Urine by Computer assisted methodHighNone Seen [facility] Medical CenterpH Test strip (U)Ordered By: Susanne Motley on 11-12-0908wG (U)pH of Urine by Test strip5.0-9.0[facility] Medical CenterAcetaminophenon 48-44-8617Ipbxynmgatcoi [Mass/Vol]0.1 ug/mLLow10.0-30.0The [facility] Physician GroupComment on above:Result Comment: PERFORMED BY: [facility] [address] [place] [address] PATHOLOGIST DATA ENTRY COORDINATOR MALLORIE GARCIA M.D.Performed By: #### CMP, CBC #### [facility] [address] [place] [address] USAAcetaminophen [Mass/volume] in Serum or PlasmaOrdered By: Susanne Motley on 35-54-3575Sbtqpitbukrid [Mass/Vol]Acetaminophen [Mass/volume] in Serum or PjflqkSpi21.0-30.0[facility] Medical CenterAlanine aminotransferase [Enzymatic activity/volume] in Serum or PlasmaOrdered By: Susanne Motley on 43-55-9293IXC [Catalytic activity/Vol]Alanine aminotransferase [Enzymatic activity/volume] in Serum or Plasma7-52[facility] Medical CenterAlbumin [Mass/volume] in Serum or Plasma by Bromocresol green (BCG) dye binding methoOrdered By: Susanne Motley on 48-09-5381Aezzxlj BCG dye [Mass/Vol] Albumin [Mass/volume] in Serum or Plasma by Bromocresol green (BCG) dye binding metho3.5-5.7FUniversity Hospitals Geauga Medical CenterAlkaline phosphatase [Enzymatic activity/volume] in Serum or PlasmaOrdered By: Susanne Motley on 42-19-0064XAG [Catalytic activity/Vol]Alkaline phosphatase [Enzymatic activity/volume] in Serum or VjsjaxNrjl94-327AgwvosgsnKettering Health Behavioral Medical CenterAspartate aminotransferase [Enzymatic activity/volume] in Serum or PlasmaOrdered By: Susanne Motley on 09-34-0546LAN [Catalytic activity/Vol]Aspartate aminotransferase [Enzymatic activity/volume] in Serum or Vmkeqs04-15QegnsltzeKettering Health Behavioral Medical CenterBasophils Auto (Bld) [#/Vol]Ordered By: Susanne Motley on 87-58-8683Pycdwvtgs (Bld) [#/Vol]Automated basophil count0.0-0.2FUniversity Hospitals Geauga Medical CenterBasophils/100 WBC Auto (Bld)Ordered By: Susanne Motley on 53-67-3947Tgkpciarj/100 WBC (Bld)Automated basophil %.[facility] Medical CenterBilirubin.total [Mass/volume] in Serum or PlasmaOrdered By: Susanne Motley on 52-94-2854Scdhfzsod [Mass/Vol]Bilirubin.total [Mass/volume] in Serum or Plasma0.3-1.0[facility] Medical CenterCOVID Cepheid NegativeOrdered By: Susanne Motley on 35-26-2182GVIF-CoV-2 (COVID-19) Ab IA QlCOVID Cepheid NegativeKettering Health Behavioral Medical CenterComment on above:This is a duplicate Cepheid Xpert Xpress CoV-2/Flu/RSV Plus RNA by RT-PCR result to be used for stat istical tracking purpose only.COVID-19 / Flu A/B / RSV PCRon 07-03-2024 SARS-CoV-2 (COVID-19) RNA HOWIE+probe Ql (Unsp spec)COVID-19 Cepheid Result Negative for SARS-CoV-2 RNA by RT-PCR Flu A Cepheid Result Negative for Flu A RNA by RT-PCR Flu B Cepheid Result Negative for Flu B RNA by RT-PCR RSV Cepheid Result Negative for RSV RNA by RT-PCR COVID19 Blank Space Reference: Negative COVID19 Blank Space Cepheid Disclaimer The Cepheid Xpert Xpress CoV-2/Flu/RSV Plus has Cepheid Disclaimer not been FDA cleared or approved; this test has Cepheid Disclaimer been authorized by FDA under an EUA for use by Cepheid Disclaimer authorized laboratories; this test has been Cepheid Disclaimer authorized only for the simultaneous qualitative Cepheid Disclaimer detection and differentiation of nucleic acids from Cepheid Disclaimer SARS-CoV-2, influenza A, influenza B, and Cepheid Disclaimer respiratory syncytial virus (RSV), and not for any Cepheid Disclaimer other viruses or pathogens; and this test is only Cepheid Disclaimer authorized for the duration of the declaration that Cepheid Disclaimer circumstances exist justifying the authorization of Cepheid Disclaimer emergency use of in vitro diagnostic tests for Cepheid Disclaimer detection and/or diagnosis of COVID-19 under Cepheid Disclaimer Section 564(b)(1) of the Act, 21 U.S.C. 360bbb- Cepheid Disclaimer 3(b)(1), unless the authorization is terminated or Cepheid Disclaimer revoked sooner. PERFORMED BY: [facility] [place] [address] PATHOLOGIST DATA ENTRY COORDINATOR MALLORIE GARCIA M.D.[facility] Physician GroupComment on above: Performed By: #### BMP #### [address] [address] USACT abdomen pelvis w conon 73-77-0285BI abdomen pelvis w [facility] [place] [address] [place] [address] CT Scan Report Signed Patient: Mary Mcadams MR#: [id number] : 1955 Acct:[id number] Age/Sex: 68 / M ADM Date: 07/03/24 Loc: ER Room: Type: PRE ER Attending Dr: Copies to: Susanne Motley MD Ordering Provider: Susanne Motley MD Date of Service: 07/03/24 CT/CT abdomen pelvis w con: lower abd tenderness CT abdomen pelvis w con 07/03/2024 8:23 PM SIGNS AND SYMPTOMS: Confusion, weakness, lower abdominal tenderness TECHNIQUE: Multidetector ct axial images of the abdomen and pelvis were obtained with IV contrast. Multiplanar reformats were performed and [...] to the prior exam. This is chronic in nature. There are 2 mm nonobstructing stones at the inferior pole of the right renal collecting system. There is enhancement of the right renal pelvis. Pelvis: Reproductive Organs: No pelvic [...] are noted in the lumbar spine. Degenerative changes are noted in the hips and sacroiliac joints. [...] Juliocesar Varela M.D.07/03/2024 9:23 PM Dictation Location: [place] [address] Transcribed By: [facility] 07/03/242122 Dictated By: Juliocesar Varela II, MD 07/03/242108 Signed By: 07/03/[address] [facility] Physician GroupCT angio chest PE protocolon 39-20-9090UQ angio chest PE protocolPARKVIEW HEALTH BR[facility]AN [facility]OSP[facility] Main [place] [address] [place] [address] CT Scan Report Signed Patient: Mary Mcadams MR#: [id number] 3267 : 1955 Acct:[id number] Age/Sex: 68 / M ADM Date: 07/03/24 Loc: Room: [address] [place] [address] Type: ADM IN Attending Dr: Altaf Jones MD Copies to: MD Susanne Carballo MD Ordering Provider: Susanne Motley MD Date [...] as above suggesting sarcoidosis and possible previous asbestos exposure. There is a compression deformity of the T7 vertebral body. This is new when compared to the prior exam but is of uncertain acuity. Impression dictated by: Juliocesar Varela M.D.07/03/2024 10:59 PM Dictation Location: [facility]17 Transcribed By: JEANIE 07/03/24 2259 Dictated By: Juliocesar Varela II, MD 07/03/24 225 Signed By: 07/03/24 2259[facility] Physician GroupCT head/brain wo conon 10-61-5548EM head/brain wo [facility] [place] [address] [place] [address] CT Scan Report Signed Patient: Mary Mcadams MR#: [id number] : 1955 Acct:[id number] Age/Sex: 68 / M ADM Date: 07/03/24 Loc: ER Room: Type: PRE ER Attending Dr: Copies to: Susanne Motley MD Ordering Provider: Susanne Motley MD Date [...] is a right-sided mastoid effusion. There is cerumen within the external auditory canals bilaterally. The osseous structures in the skull base and the calvarium show no abnormality. CT/CT head/brain wo con IMPRESSION: No acute intracranial pathology. Chronic age-related neurodegenerative changes are redemonstrated as above. Impression dictated by: Juliocesar Varela M.D.07/03/2024 9:09 PM Dictation Location: [facility] Transcribed By: JEANIE 07/03/242108 Dictated By: Juliocesar Varela II, MD 07/03/242103 Signed By: 07/03/242108NormHealthmark Regional Medical Center Physician GroupCalcium [Mass/volume] in Serum or PlasmaOrdered By: Susanne Motley on 50-97-0745Ksdenvm [Mass/Vol]Calcium [Mass/volume] in Serum or Plasma8.6-10.3FUniversity Hospitals Geauga Medical CenterCarbon dioxide, total [Moles/volume] in Serum or PlasmaOrdered By: Susanne Motley on 22-50-3124JO4 [Moles/Vol]Carbon dioxide, total [Moles/volume] in Serum or Plasma 21.0-31.0[facility] Medical CenterCepheid COVID PCR Negativeon 07-10-8314NMFU-CoV-2 (COVID-) RNA HOWIE+probe Ql (Unsp spec)NegativeNormal NegativeThe [facility] Physician GroupComment on above:Result Comment: This is a duplicate Cepheid Xpert Xpress CoV-2/Flu/RSV Plus RNA by RT-PCR result to be used for statistical tracking purpose only. PERFORMED BY: [place] [address] PATHOLOGIST DATA ENTRY COORDINATOR MALLORIE GARCIA M.D.Performed By: #### BMP #### [address] [address] USAChloride [Moles/volume] in Serum or PlasmaOrdered By: Susanne Motley on 30-43-9119Acohlbus [Moles/Vol]Chloride [Moles/volume] in Serum or Rnypug83-025KbukihbqaKettering Health Behavioral Medical CenterComplete Blood Count Auto Diff on 16-52-9636Dybafczty (Bld) [#/Vol]0.0 10*3/uLNormal0.0-0.2The [facility] Physician GroupComment on above:Result Comment: PERFORMED BY: [place] [address] PATHOLOGIST DATA ENTRY COORDINATOR MALLORIE GARCIA M.D.Performed By: #### CMP, CBC #### [address] [address] USABasophils/100 WBC (Bld)0.7 %Normal.The [facility] Physician GroupComment on above:Performed By: #### CMP, CBC #### [place] [address] USAEosinophils (Bld) [#/Vol]0.2 10*3/uLNormal0.0-0.45The [facility] Physician GroupComment on above:Performed By: #### CMP, CBC #### [place] [address] USAEosinophils/100 WBC (Bld)2.7 %Normal.The [facility] Physician GroupComment on above:Performed By: #### CMP, CBC #### [place] [address] USAErythrocyte distribution width (RBC) [Ratio]16.2 %High 12.0-14.8The [facility] Physician GroupComment on above:Performed By: #### CMP, CBC #### [place] [address] USAHematocrit (Bld) [Volume fraction]30.7 %Low38.8-50.0The [facility] Physician GroupComment on above:Performed By: #### CMP, CBC #### [place] [address] USAHemoglobin (Bld) [Mass/Vol]10.3 g/dLLow13.0-17.0The [facility] Physician GroupComment on above:Performed By: #### CMP, CBC #### [place] [address] USALymphocytes (Bld) [#/Vol]0.7 10*3/uLLow1.00-4.8The [facility] Physician GroupComment on above:Performed By: #### CMP, CBC #### [place] [address] USALymphocytes/100 WBC (Bld)12.4 %Normal.The [facility] Physician GroupComment on above:Performed By: #### CMP, CBC #### [place] [address] USAH (RBC) [Entitic mass]28.1 phKawuor79.5-35.2The [facility] Physician GroupComment on above:Performed By: #### CMP, CBC #### [place] [address] USAMCV (RBC) [Entitic vol]83.7 oFZfbqik43.5-101The [facility] Physician GroupComment on above:Performed By: #### CMP, CBC #### [place] [address] USAMean Corpuscular HGB Conc33.6 g/aGGufqqp83.5-35.6The [facility] Physician GroupComment on above:Performed By: #### CMP, CBC #### [place] [address] USAMonocytes (Bld) [#/Vol]0.6 10*3/uLNormal0.0-0.8The [facility] Physician GroupComment on above:Performed By: #### CMP, CBC #### [place] [address] USAMonocytes/100 WBC (Bld)18.01 %Normal0.00-20.00The [facility] Physician GroupComment on above:Performed By: #### CMP, CBC #### [place] [address] USAMonocytes/100 WBC (Bld)9.9 %Normal.The [facility] Physician GroupComment on above:Performed By: #### CMP, CBC #### [place] [address] USANeutrophils (Bld) [#/Vol]4.3 10*3/uLNormal1.8-7.7The [facility] Physician GroupComment on above:Performed By: #### CMP, CBC #### [place] [address] USANeutrophils/100 WBC (Bld)74.3 %Normal.The [facility] Physician GroupComment on above:Performed By: #### CMP, CBC #### [facility] [address] [place] [address] USANRBC%0.0 /100{WBC}Normal0-0.5The [facility] Physician Group Comment on above:Performed By: #### CMP, CBC #### [place] [address] USAPlatelet mean volume (Bld) [Entitic vol]7.7 fLNormal 6.6-10.1The [facility] Physician GroupComment on above:Performed By: #### CMP, CBC #### [place] [address] USAPlatelets (Bld) [#/Vol]327 10*3/cLCruzot681-116Xpf [facility] Physician GroupComment on above:Performed By: #### CMP, CBC #### [place] [address] USARBC (Bld) [#/Vol]3.67 10*6/uLLow3.90-5.60The [facility] Physician GroupComment on above:Performed By: #### CMP, CBC #### [place] [address] USAWBC (Bld) [#/Vol]5.8 10*3/uLNormal4.1-10.5The [facility] Physician GroupComment on above:Performed By: #### CMP, CBC #### [place] [address] USAComprehensive Metabolic Panelon 94-57-4441Xemzohc [Mass/Vol]3.8 g/dLNormal3.5-5.7The [facility] Physician GroupComment on above: Performed By: #### CMP, CBC #### [place] [address] USAAlbumin/Globulin [Mass ratio]0.9 {ratio}NormalThe [facility] Physician GroupComment on above:Performed By: #### CMP, CBC #### [place] [address] USAALP [Catalytic activity/Vol]124 U/HNbke03-036Syf [facility] Physician GroupComment on above:Performed By: #### CMP, CBC #### [facility] [address] [place] [address] USAALT [Catalytic activity/Vol]10 U/LNormal7-52The [facility] Physician GroupComment on above:Performed By: #### CMP, CBC #### [facility] [address] [place] [address] USAAnion gap [Moles/Vol]14.5 mmol/LNormal6.0-15.0The [facility] Physician GroupComment on above:Performed By: #### CMP, CBC #### [facility] [address] [place] [address] USAAST [Catalytic activity/Vol]18 U/QSnirxh39-19Ujq [facility] Physician GroupComment on above:Performed By: #### CMP, CBC #### [facility] [address] [place] [address] USABilirubin [Mass/Vol]0.9 mg/dLNormal0.3-1.0The [facility] Physician GroupComment on above:Performed By: #### CMP, CBC #### [facility] [address] [place] [address] USACalcium [Mass/Vol]9.7 mg/dLNormal8.6-10.3The [facility] Physician GroupComment on above:Performed By: #### CMP, CBC #### [facility] [address] [place] [address] USAChloride [Moles/Vol]99 mmol/ZDulkjg31-751Dbd [facility] Physician GroupComment on above:Performed By: #### CMP, CBC #### [facility] [address] [place] [address] USACO2 [Moles/Vol]24.4 mmol/WGnaqtj23.0-31.0The [facility] Physician GroupComment on above:Performed By: #### CMP, CBC #### [facility] [address] [place] [address] USACreatinine [Mass/Vol]1.12 mg/dLNormal0.70-1.30The [facility] Physician GroupComment on above:Performed By: #### CMP, CBC #### [place] [address] USACreatinine Clr Calc Dmkcnkop36.91NormHealthmark Regional Medical Center Physician GroupComment on above:Result Comment: PERFORMED BY: [place] [address] PATHOLOGIST DATA ENTRY COORDINATOR MALLORIE GARCIA M.D.Performed By: #### CMP, CBC #### [place] [address] USAGFR/1.73 sq M.predicted MDRD (S/P/Bld) [Vol rate/Area] mL/min/{1.73_m2}NormalThe [facility] Physician GroupComment on above:Performed By: #### CMP, CBC #### [place] [address] USAGlobulin (S) [Mass/Vol]4.1 g/dLNoWakeMed Cary Hospital Physician GroupComment on above:Performed By: #### CMP, CBC #### [place] [address] USAGlucose [Mass/Vol]107 mg/eSDufp58-097Ski [facility] Physician GroupComment on above:Result Comment: Random Glucose Reference Range is dependent on time and content of last meal. Glucose of more than 200 mg/dL in a nonstressed, ambulatory subject supports the diagnosis of Diabetes Mellitus. ADA recommended reference rangePerformed By: #### CMP, CBC #### [place] [address] USAPotassium [Moles/Vol]3.9 mmol/LNormal3.5-5.1The [facility] Physician GroupComment on above:Performed By: #### CMP, CBC #### [place] [address] USAProtein [Mass/Vol]7.9 g/dLNormal6.4-8.9The [facility] Physician GroupComment on above:Performed By: #### CMP, CBC #### [place] [address] USASodium [Moles/Vol]134 mmol/LXou404-249Zgq [facility] Physician GroupComment on above:Performed By: #### CMP, CBC #### [facility] [address] [place] [address] USAUrea nitrogen [Mass/Vol]15 mg/dLNormal7-25The [facility] Physician GroupComment on above:Performed By: #### CMP, CBC #### [facility] [address] [place] [address] USACreatinine [Mass/volume] in Serum or PlasmaOrdered By: Susanne Motley on 38-72-7655Dfhyezaewk [Mass/Vol]Creatinine [Mass/volume] in Serum or Plasma0.70-1.30[facility] Medical CenterD-Dimer High Sensitivityon 89-55-2820J-Dimer High Dkedwvxnlmk510 ng/mLHigh0-243The [facility] Physician Alliance HospitalComment on above:Result Comment: The reference range for D-dimer is [...] coagulation studies. Please contact the laboratory at [phone] for redraw instructions. PERFORMED BY: [address] [address] PATHOLOGIST DATA ENTRY COORDINATOR MALLORIE GARCIA M.D.Performed By: #### CMP, CBC #### [facility] [address] [place] [address] USAECG 12 lead ECGon 00-17-5245SVG 12 lead ECGPARKVIEW [facility] [address] [place] [address] [place] [address] Electrocardiograph Report Signed Patient: Mary Mcadams MR#: [id number] : 1955 Acct:[id number] Age/Sex: 68 / M ADM Date: 07/03/24 Loc: Room: [address] [place] [address] Type: ADM IN Attending Dr: Ambrose Hsieh MD Ordering Provider: Susanne Motley MD Date of Service: 07/03/24 ECG/ECG 12 lead ECG: repeat ekg, artifact Copies to: Test Reason : Blood Pressure : 139/86 mmHG Vent. Rate : 89 BPM Atrial Rate : 89 BPM P-R Int : 174 ms QRS Dur : 132 ms QT Int : 472 ms P-R-T Axes : 22 -15 -64 degrees QTcB Int : 574 ms Sinus rhythm with premature atrial complexes Left ventricular hypertrophy with QRS widening and repolarization abnormality diffuse t wave inversion Nonspecific ST abnormality Confirmed by Susanne Motley MD ([id number]) on 07/04/2024 8:06:28 AM Referred By: Electronically Signed By: Susanne Motley MD Transcribed By: MUS Signed By Susanne Motely MD 06/[address] [place] [address] Physician GroupEC 12 lead [facility] [place] [address] [place] [address] Electrocardiograph Report Signed Patient: Mary Mcadams MR#: [id number] : 1955 Acct:[id number] Age/Sex: 68 / M ADM Date: 07/03/24 Loc: ER Room: Type: PRE ER Attending Dr: Ordering Provider: Susanne Motley MD Date of Service: 07/03/24 ECG/ECG 12 lead ECG: Weakness Copies to: Test Reason : Blood Pressure : */* mmHG Vent. Rate : 99 BPM Atrial Rate : 99 BPM P-R Int : 166 ms QRS Dur : 118 ms QT Int : 428 ms P-R-T Axes : 77 -19 -68 degrees QTcB Int : 549 ms Normal sinus rhythm Prolonged QT Abnormal ECG When compared with ECG of 20-Mar-2024 07:25, Significant changes have occurred Confirmed by Susanne Motley MD ([id number]) on 07/03/2024 8:28:50 PM Referred By: Electronically Signed By: Susanne Motley MD Transcribed By: MUS Signed By Susanne Motley MD 06/15NoWakeMed Cary Hospital Physician GroupEosinophils Auto (Bld) [#/Vol] Ordered By: Susanne Motley on 33-75-6400Awkacnttucv (Bld) [#/Vol]Automated eosinophil count0.0-0.45[facility] Medical CenterEosinophils/100 WBC Auto (Bld)Ordered By: Susanne Motley on 49-95-9014Rqdgcsivreh/100 WBC (Bld) Automated eosinophil %.[facility] Medical CenterErythrocyte distribution width Auto (RBC) [Ratio]Ordered By: Susanne Motley on 14-50-3370Mpuhaluwsvh distribution width (RBC) [Ratio]Erythrocyte distribution width [Ratio] by Automated qwwavCiap73.0-14.8[facility] Medical CenterEthanol [Mass/volume] in Serum or PlasmaOrdered By: Susanne Motley on 66-23-1402Zmblxsh [Mass/Vol]Ethanol [Mass/volume] in Serum or PlasmaKettering Health Behavioral Medical CenterComment on above:Test not performedEthyl Alcohol Profileon 07-03-2024 Ethanol [Mass/Vol]mg/dLNoWakeMed Cary Hospital Physician Alliance HospitalComment on above: Performed By: #### BMP #### [facility] [address] [place] [address] USAPercent EthanolNot performedNoWakeMed Cary Hospital Physician Alliance HospitalComment on above:Result Comment: PERFORMED BY: [facility] [address] [place] [address] PATHOLOGIST DATA ENTRY COORDINATOR MALLORIE GARCIA M.D.Performed By: #### BMP #### [facility] [address] [place] [address] USAFibrin D-dimer [Presence] in Platelet poor plasma by Latex agglutinationOrdered By: Susanne Motley on 09-19-8816Dfndgp D-dimer LA Ql (PPP) Fibrin D-dimer [Presence] in Platelet poor plasma by Latex agglutinationHigh 0-243[facility] Medical CenterComment on above:The reference range for D-dimer is <243 ng/mL D-dimer units.D-dimer results must be used in conjunction with a clinicalpretest probability (PTP) assessment model for deep veinthrombosis (DVT) and pulmonary embolism (PE). Results <230ng/mL d-dimer units can be used as a negative predictor inpatients with low or moderate probability for DVT/PE.Results above the exclusion threshold of 230 ng/ml D- dimerunits for DVT/PE may indicate the need for furtherdiagnostic testing.D- Dimer can be increased in hospitalized patients due toco-morbid conditions.A hematocrit value greater than 55% may lead to inaccurate results in coagulation testing. Patients having hematocrit values >55% require a special collection tube for coagulation studies. Please contact the laboratory at [phone] for redraw instructions.Free T4 (Free Thyroxine)on 88-29-0753Vliz T4 [Mass/Vol]1.31 ng/dLHigh0.61-1.12The [facility] Physician GroupComment on above:Performed By: #### CMP, CBC #### [facility] [address] [place] [address] USAGlobulin Calc (S) [Mass/Vol]Ordered By: Susanne Motley on 30-53-2270Thtdipxs (S) [Mass/Vol]Serum globulin measurement by calculation (mass/volume)[facility] Medical CenterGlucose [Mass/volume] in Serum or PlasmaOrdered By: Susanne Motley on 11-31-8172Wmwslec [Mass/Vol]Glucose [Mass/volume] in Serum or ZsxxfwGmdb86-104CztgruigyKettering Health Behavioral Medical Center Comment on above:ADA recommended reference rangeRandom Glucose Reference Range is dependent on time and content of last meal. Glucose of more than 200 mg/dL in a nonstressed, ambulatory subject supports the diagnosisof Diabetes Mellitus. Hematocrit Auto (Bld) [Volume fraction]Ordered By: Susanne Motley on 07-03-2024 Hematocrit (Bld) [Volume fraction]Hematocrit [Volume Fraction] of Blood by Automated gezamGly84.8-50.0[facility] Medical CenterHemoglobin [Mass/volume] in BloodOrdered By: Susanne Motley on 66-04-7436Fxlmkokvne (Bld) [Mass/Vol]Hemoglobin [Mass/volume] in NgavsVlx08.0-17.0[facility] Medical CenterLeukocytes [#/volume] corrected for nucleated erythrocytes in Blood by Automated counOrdered By: Susanne Motley on 35-58-3057AAQ corrected for nucl RBC Auto (Bld) [#/Vol]Leukocytes [#/volume] corrected for nucleated erythrocytes in Blood by Automated coun4.1-10.5FUniversity Hospitals Geauga Medical Center Lymphocytes Auto (Bld) [#/Vol]Ordered By: Susanne Motley on 07-03-2024 Lymphocytes (Bld) [#/Vol]Lymphocytes [#/volume] in Blood by Automated countLow 1.00-4.8[facility] Medical CenterLymphocytes/100 WBC Auto (Bld)Ordered By: Susanne Motley on 30-72-3186Yitifjngjzh/100 WBC (Bld)Lymphocytes/100 leukocytes in Blood by Automated count.[facility] Medical CenterMCH Auto (RBC) [Entitic mass]Ordered By: Susanne Motley on 94-01-5263EKM (RBC) [Entitic mass]MCH [Entitic mass] by Automated count27.5-35.2FUniversity Hospitals Geauga Medical CenterMCHC Auto (RBC) [Mass/Vol]Ordered By: Susanne Motley on 89-61-9266XYFC (RBC) [Mass/Vol]MCHC [Mass/volume] by Automated count32.5-35.6FUniversity Hospitals Geauga Medical CenterMCV Auto (RBC) [Entitic vol]Ordered By: Susanne Motley on 42-21-7034LQC (RBC) [Entitic vol]MCV [Entitic volume] by Automated count83.5-101 [facility] CenterMagnesiumon 69-31-6681Uewbzsoqc [Mass/Vol]1.5 mg/dLLow1.9-2.7The [facility] Physician GroupComment on above:Performed By: #### CMP, CBC #### [facility] [address] [place] [address] USAMagnesium [Mass/volume] in Serum or PlasmaOrdered By: Susanne Motley on 82-17-4711Wajfprkws [Mass/Vol]Magnesium [Mass/volume] in Serum or PlasmaLow1.9-2.7FUniversity Hospitals Geauga Medical CenterMonocyte distribution width [Entitic volume] in Blood by AutomatedOrdered By: Susanne Motley on 02-19-2025 Monocyte distribution width Auto (Bld) [Entitic vol]Monocyte distribution width [Entitic volume] in Blood by Automated0.00-20.00[facility] Medical CenterMonocytes Auto (Bld) [#/Vol]Ordered By: Susanne Motley on 07-03-2024 Monocytes (Bld) [#/Vol]Automated blood monocyte count0.0-0.8[facility] Medical CenterMonocytes/100 WBC Auto (Bld)Ordered By: Susanne Motley on 31-34-9670Jsfaxsrup/100 WBC (Bld)Automated monocyte %.[facility] Medical CenterNeutrophils Auto (Bld) [#/Vol]Ordered By: Susanne Motley on 07-03-2024 Neutrophils (Bld) [#/Vol]Neutrophils [#/volume] in Blood by Automated count 1.8-7.7FUniversity Hospitals Geauga Medical CenterNeutrophils/100 WBC Auto (Bld)Ordered By: Susanne Motley on 05-28-1533Mbhaygzhcyi/100 WBC (Bld)Automated neutrophil %. [facility] CenterNo Panel InformationOrdered By: Susanne Motley on 00-36-9844Mvtks Gas Critical ValueSee commentKettering Health Behavioral Medical CenterComment on above:Critical Value called on: 07/03/2024 at 20:39Blood Gas Liter Seff0AcburgepkKettering Health Behavioral Medical CenterBlood Gas Sample SiteVenousKettering Health Behavioral Medical CenterFiO228% %[facility] Medical CenterOxygen Delivery DeviceNasal cannulaKettering Health Behavioral Medical CenterVenous Blood Base Excess-3.8 mmol/LLow-3.0-3.0[facility] Medical CenterVenous Blood Oxygen Pyjzrmmzek12.2 %Critically low73.0-76.0[facility] Medical CenterVenous Blood Partial Pressure CO240.0 mm[Hg]38.0-50.0[facility] Venous Blood pH7.357.32-7.43[facility] Medical CenterEstimated GFR (CKD-EPI)> 60.0 mL/MinKettering Health Behavioral Medical CenterPharmacy Creatinine Clearance (Chem59.91[facility] Medical CenterNucleated erythrocytes [Presence] in Blood by Automated countOrdered By: Susanne Motley on 07-03-2024 Nucleated RBC Auto Ql (Bld)Nucleated erythrocytes [Presence] in Blood by Automated count0-0.5FUniversity Hospitals Geauga Medical CenterPartial Thromboplastin Time on 20-55-8701mWUJ Coag (Bld) [Time]41.2 sHigh25.1-36.5The [facility] Physician GroupComment on above:Result Comment: A hematocrit value greater than 55% may lead to inaccurate results in coagulation testing. Patients having hematocrit values >55% require a special collection tube for coagulation studies. Please contact the laboratory at [phone] for redraw instructions.Performed By: #### BMP #### [facility] [address] [place] [address] USAPlatelet mean volume Auto (Bld) [Entitic vol]Ordered By: Susanne Motley on 69-71-8139Mjneujlu mean volume (Bld) [Entitic vol]Platelet mean volume [Entitic volume] in Blood by Automated count6.6-10.1FUniversity Hospitals Geauga Medical CenterPlatelets Auto (Bld) [#/Vol]Ordered By: Susanne Motley on 09-74-8652Ktmphxvlb (Bld) [#/Vol]Platelets [#/volume] in Blood by Automated -216NomyylvibKettering Health Behavioral Medical CenterPotassium [Moles/volume] in Serum or PlasmaOrdered By: Susanne Motley on 24-55-7923Iulnfhtti [Moles/Vol]Potassium [Moles/volume] in Serum or Plasma3.5-5.1FUniversity Hospitals Geauga Medical CenterProtein [Mass/volume] in Serum or PlasmaOrdered By: Susanne Motley on 78-53-8877Uzbodfz [Mass/Vol]Protein [Mass/volume] in Serum or Plasma6.4-8.9[facility] Medical CenterRBC Auto (Bld) [#/Vol]Ordered By: Susanne Motley on 34-93-1933SAG (Bld) [#/Vol]Erythrocytes [#/volume] in Blood by Automated countLow3.90-5.60 [facility] CenterRespiratory specimen influenza A virus, influenza B virus, respiratory syncytical virOrdered By: Susanne Motley on 20-87-4136AYER-CoV-2 (COVID-19) RNA HOWIE+probe Ql (Unsp spec)Respiratory specimen influenza A virus, influenza B virus, respiratory syncytical virMorrow County HospitalARS-CoV-2 (COVID-19) RNA HOWIE+probe Ql (Unsp spec) Respiratory specimen influenza A virus, influenza B virus, respiratory syncytical [facility] Cincinnatialicylateon 94-99-2233Msrwavgchs <1.5Low15.0-30.0The [facility] Physician GroupComment on above:Result Comment: Patients treated with Sulfasalazine may generate a false high result for Salicylate.Performed By: #### BMP #### [facility] [address] [place] [address] USASalicylates [Mass/volume] in Serum or PlasmaOrdered By: Susanne Motley on 43-31-2617Lkezokutimf [Mass/Vol]Salicylates [Mass/volume] in Serum or GqalelXwm58.0-30.0[facility] Medical CenterComment on above: Patients treated with Sulfasalazine may generate a false high result for Salicylate.Serum or plasma albumin/globulin mass ratioOrdered By: Susanne Motley on 69-48-2334Nglcslj/Globulin [Mass ratio]Serum or plasma albumin/globulin mass ratioMorrow County Hospitalerum or plasma anion gap determination Ordered By: Susanne Motley on 64-81-0969Bbtma gap [Moles/Vol]Serum or plasma anion gap determination6.0-15.0Morrow County Hospitalodium [Moles/volume] in Serum or PlasmaOrdered By: Susanne Motley on 39-22-1257Lpknog [Moles/Vol]Sodium [Moles/volume] in Serum or AftpjbXfs784-678DfgifkkwkKettering Health Behavioral Medical CenterThyroid Stimulating Hormoneon 00-94-1285WZY Qn2.93 m[IU]/LNormal 0.45-5.33The [facility] Physician GroupComment on above:Result Comment: PERFORMED BY: [facility] [address] [place] [address] PATHOLOGIST DATA ENTRY COORDINATOR MALLORIE GARCIA M.D.Performed By: #### CMP, CBC #### [facility] [address] [place] [address] USAThyrotropin [Units/volume] in Serum or PlasmaOrdered By: Susanne Motley on 66-01-8626VZW QnThyrotropin [Units/volume] in Serum or Plasma 0.45-5.33[facility] Medical CenterThyroxine (T4) free [Mass/volume] in Serum or PlasmaOrdered By: Susanne Motley on 10-62-5192Rctj T4 [Mass/Vol] Thyroxine (T4) free [Mass/volume] in Serum or PlasmaHigh0.61-1.12[facility] CenterTroponin I High Sensitivityon 75-67-0183Pdvrntpq I High Ekzkubklwfx05Psnrdg0-95Twm [facility] Physician GroupComment on above:Result Comment: The Troponin units of report have been changed to meet the Chest Pain Accreditation requirement, element EC5.M1l2. Troponin units are changed from pg/ml to ng/L. Also, the decimal is removed and results are in whole numbers. PERFORMED BY: [place] [address] PATHOLOGIST DATA ENTRY COORDINATOR MALLORIE GARCIA M.D.Performed By: #### HS TROP ####[facility] [address] [place] [address] USATroponin I High Vdouscxvaro84 Normal0-20The [facility] Physician GroupComment on above:Result Comment: The Troponin units of report have been changed to meet the Chest Pain Accreditation requirement, element EC5.M1l2. Troponin units are changed from pg/ml to ng/L. Also, the decimal is removed and results are in whole numbers. PERFORMED BY: [place] [address] PATHOLOGIST DATA ENTRY COORDINATOR MALLORIE GARCIA M.D.Performed By: #### CMP, CBC #### [facility] [address] [id number] USATroponin I.cardiac [Mass/volume] in Serum or Plasma by Detection limit <= 0.01 ng/Ordered By: Susanne Motley on 34-69-5326Vkocnvyt I.cardiac DL <= 0.01 ng/mL [Mass/Vol]Troponin I.cardiac [Mass/volume] in Serum or Plasma by Detection limit <= 0.01 ng/0-20[facility] Comment on above:The Troponin units of report have been changed to meet the Chest Pain Accreditation requirement, element EC5.M1l2. Troponin units are changed from pg/ml to ng/L. Also, the decimal is removed and results are in whole numbers.Urea nitrogen [Mass/volume] in Serum or PlasmaOrdered By: Susanne Motley on 32-68-5909Blhi nitrogen [Mass/Vol]Urea nitrogen [Mass/volume] in Serum or Plasma12-06[facility] Medical CenterUrine cultureOrdered By: Susanne Motley on 11-58-9567Rbgokrrs identified Cx Nom (U)Group B Strep (Streptococcus agalactiae)AbnormalKettering Health Behavioral Medical CenterVenous Blood GasOrdered By: Susanne Motley on 64-02-9557NB3 [Moles/Vol]22.8 mmol/LLow 24.0-29.0[facility] Medical CenterComment on above:Performed By: #### VBG ####Point of Care testing,HCO3 (Bld) [Moles/Vol]21.5 mmol/LLow23.0-29.0 [facility] Medical CenterComment on above:Performed By: #### VBG ####Point of Care testing,Venous Blood Gason 85-39-0912Xpufah DeviceNasal CannulaNoWakeMed Cary Hospital Physician GroupComment on above:Performed By: #### VBG ####Point of Care testing,Respiratory CriticalNoWakeMed Cary Hospital Physician GroupComment on above:Result Comment: Critical Value called on: 07/03/2024 at 20:39 PERFORMED BY: [facility] [address] [place] [address] PATHOLOGIST DATA ENTRY COORDINATOR MALLORIE GARCIA M.D.Performed By: #### VBG ####Point of Care testing,VBG Base Excess-3.8 mmol/LLow-3.0-3.0The [facility] Physician GroupComment on above: Performed By: #### VBG ####Point of Care testing,VBG Draw SiteVenousNoWakeMed Cary Hospital Physician GroupComment on above:Performed By: #### VBG ####Point of Care testing,VBG Frac Inspired O228%NormalThe [facility] Physician GroupComment on above:Performed By: #### VBG ####Point of Care testing,VBG Liter Fnzd8Isjhdj [facility] Physician GroupComment on above:Performed By: #### VBG ####Point of Care testing,VBG Oxygen Irpvhidxvf37.2 %Off scale low73.0-76.0The [facility] Physician GroupComment on above:Performed By: #### VBG ####Point of Care testing,VBG ZTM077.0 mm[Hg]Ddzkse44.0-50.0The [facility] Physician GroupComment on above:Performed By: #### VBG ####Point of Care testing,VBG PH Venous PH7.35 Normal7.32-7.43The [facility] Physician GroupComment on above:Performed By: #### VBG ####Point of Care testing,WBC Auto (Bld) [#/Vol]Ordered By: Susanne Motley on 46-83-0074DLX (Bld) [#/Vol]Leukocytes [#/volume] in Blood by Automated count 4.1-10.5FUniversity Hospitals Geauga Medical CenterX-ray reportOrdered By: Juliocesar Varela on 78-94-8768Sifjf reportPARKVIEW HEALTH [place] [address] XRay Report Signed Patient: Mary Mcadams MR#: [id number] : 1955 Acct:[id number] Age/Sex: 68 / M ADM Date: 5 [...] mediastinal and hilar lymph nodes are redemonstrated bilaterally.The heart and mediastinal structures are within normal [...] Varela II, MD 07/03/242101 Signed By: 07/03/242103 [facility] Work Phone: XR chest 2V*on 68-50-7778LJ chest 2V*[facility] Main [place] [address] [place] [address] XRay Report Signed Patient: Mary Mcadams MR#: [id number] : 1955 Acct:[id number] Age/Sex: 68 / M ADM Date: 07/03/24 Loc: ER Room: Type: PRE ER Attending Dr: Copies to: Susanne Motley MD Ordering Provider: Susanne Motley MD Date of Service: 07/03/24 XR/XR chest 2V*: Weakness XR chest 2V* 07/03/2024 6:35 PM SIGNS AND SYMPTOMS: Confusion, weakness, lower abdominal tenderness PROTOCOL: Frontal and lateral radiographs of the chest COMPARISON: 02/29/2024 FINDINGS: The trachea is midline. Calcified mediastinal and hilar lymph nodes are redemonstrated bilaterally. The heart and mediastinal structures are within normal limits. Chronic pleural- parenchymal o pacities are noted in the lung bases with [...] Juliocesar Varela II, MD 07/03/242101 Signed By: 07/03/242103[facility] Physician GroupaPTT in Platelet poor plasma by Coagulation assayOrdered By: Susanne Motley on 77-46-0210rTJY Coag (PPP) [Time] Activated partial thromboplastin time (aPTT) in platelet poor plasma by coagulation aHi25.1-36.5FUniversity Hospitals Geauga Medical CenterComment on above:A hematocrit value greater than 55% may lead to inaccurate results in coagulation testing. Patientshaving hematocrit values >55% require a special collection tube for coagulation studies. Please contact the laboratory at [phone] for redraw instructions.NM Heart Perfusion W stress and W radionuclide Juanjose 41-84-3049Eftbol Lexiscan Myoview cardiac perfusion stress test. No evidence of ischemia or myocardial infarction by perfusion imaging. Normal left ventricular systolic function, ejection fraction 57%. No previous study available for comparison. Signed by: Chacho Burroughs 06/12/2024 5:53 PM Dictation workstation: [id number] By: Chacho Burroughs and Giannuzzi Michael STUDY: MYOCARDIAL PERFUSION STRESS TEST WITH LEXISCAN Performing facility: [facility], [address] [place] [address], [address], [address] Provider: Shannon Gonzalez MD, FACC PCP: Dr. Mat Del Valle Supervising provider: Chacho Burroughs MD INDICATION: Fatigue NICM A-fib LV Thrombus HISTORY: Gender: M; Age: 68 y/o ; Height: HT 182.9 cm cm; Weight: WT 70.852 kg kg. Arrhythmias;A-fib SOB; COPD; Fatigue; Denies smoking. COMPARISON: No comparison. ACCESSION NUMBER(S): [id number] ORDERING CLINICIAN: SHANNON GONZALEZ TECHNIQUE: ONE DAY [...] There were no evidence of attenuation artifact. Chacho Moreno MD - 06/12/2024 Interpreted By: Chacho Burroughs and Giannuzzi Michael STUDY: MYOCARDIAL PERFUSION STRESS TEST WITH LEXISCAN Performing facility: [facility], [address] [place] [address], [address], [address] Provider: Shannon Gonzalez MD, [facility] PCP: Dr. Mat Del Valle Supervising provider: Chacho Burroughs MD INDICATION: Fatigue NICM A-fib LV Thrombus HISTORY: Gender: M; Age: 68 y/o ; Height: HT 182.9 cm cm; Weight: WT 70.852 kg kg. Arrhythmias;A-fib SOB; COPD; Fatigue; Denies smoking. COMPARISON: No comparison. ACCESSION NUMBER(S): [id number] ORDERING CLINICIAN: SHANNON GONZALEZ TECHNIQUE: ONE DAY [...] Chacho Burroughs 06/12/2024 5:53 PM Dictation workstation: [id number] [facility] Work Phone: Radiology Study observation (narrative)[facility] Work Phone: NM Heart Perfusion W stress and W radionuclide IV Ordered By: Chacho Burroughs on 10-36-8294AmebpbcsvnGalion Hospital Work Phone: NUCLEAR STRESS TESTon 23-79-0757NLAIYIL STRESS TEST Interpreted By: Chacho Burroughs and Giannuzzi Michael STUDY: MYOCARDIAL PERFUSION STRESS TEST WITH LEXISCAN Performing facility: [facility], [address] [place] [address], [address], [address] Provider: Shannon Gonzalez MD, FACC PCP: Dr. Mat Del Valle Supervising provider: Chacho Burroughs MD INDICATION: Fatigue NICM A-fib LV Thrombus HISTORY: Gender: M; Age: 68 y/o ; Height: HT 182.9 cm cm; Weight: WT 70.852 kg kg. Arrhythmias;A-fib SOB; COPD; Fatigue; Denies smoking. COMPARISON: No comparison. ACCESSION NUMBER(S): [id number] ORDERING CLINICIAN: SHANNON GONZALEZ TECHNIQUE: ONE DAY [...] Chacho Burroughs 06/12/2024 5:53 PM Dictation workstation: [id number]as Hospital ECG [address] 47-98-5352ILG revealed normal sinus rhythm, LVH with repolarization abnormalities and QRS widening, prolonged QT interval, abnormal ECGCPACSCleveland Clinic Lutheran Hospital Work Phone: basophils Auto (Bld) [#/Vol]on 74-53-7761Nebruisvh (Bld) [#/Vol]Automated basophil count0.0-0.1FUniversity Hospitals Geauga Medical Center Basophils/100 WBC Auto (Bld)on 46-82-4155Leeasreli/100 WBC (Bld)Automated basophil %0.2-2.0[facility] CenterEosinophils/100 WBC Auto (Bld) on 86-91-4391Mdpopqymzvh/100 WBC (Bld)Automated eosinophil %0.9-7.0[facility] CenterErythrocyte distribution width Auto (RBC) [Ratio]on 36-95-3842Nvfbyehlald distribution width (RBC) [Ratio]Erythrocyte distribution width [Ratio] by Automated count11.0-15.0[facility] Estimated glomerular filtration rate (GFR) non- Americanon 05-22-2024 GFR/1.73 sq M.predicted among non-blacks MDRD (S/P/Bld) [Vol rate/Area]Estimated glomerular filtration rate (GFR) non->=60 mL/min/1.73m 2 [facility] CenterGlobulin Calc (S) [Mass/Vol]on 05-22-2024 Globulin (S) [Mass/Vol]Serum globulin measurement by calculation (mass/volume) [facility] CenterHematocrit Auto (Bld) [Volume fraction]on 41-18-1825Kifwlvakct (Bld) [Volume fraction]Hematocrit [Volume Fraction] of Blood by Automated xvzvyVyz37.0-54.0[facility] CenterHemoglobin [Mass/volume] in Bloodon 47-73-8624Zfuukkotjr (Bld) [Mass/Vol]Hemoglobin [Mass/volume] in LeuthMaw96.0-18.0[facility] CenterLaboratory - Chemistry and Chemistry - challengeon 41-71-0714Fvyvqim [Mass/Vol]2.9 g/dLLow 3.4-5.0[facility] CenterALP [Catalytic activity/Vol]149 U/LHigh 46-116[facility] CenterALT [Catalytic activity/Vol]15 U/LLow 16-63[facility] CenterAST [Catalytic activity/Vol]18 U/L15-37 [facility] CenterBilirubin [Mass/Vol]0.8 mg/dL0.2-1.0[facility] CenterCalcium [Mass/Vol]8.9 mg/dL8.5-10.1FUniversity Hospitals Geauga Medical CenterChloride [Moles/Vol]100 mmol/Y50-346HjsjrttszKettering Health Behavioral Medical CenterCO2 [Moles/Vol]29.8 mmol/L21.0-32.0[facility] Creatinine [Mass/Vol]0.95 mg/dL0.70-1.30[facility] GFR/1.73 sq M.predicted MDRD (S/P/Bld) [Vol rate/Area]mL/min/{1.73_m2}>=60 mL/min/1.73m 2FUniversity Hospitals Geauga Medical CenterGlucose [Mass/Vol]82 mg/zW85-192 [facility] CenterPotassium [Moles/Vol]4.0 mmol/L3.5-5.1FUniversity Hospitals Geauga Medical CenterProtein [Mass/Vol]6.2 g/dLLow6.4-8.2FLake County Memorial Hospital - Westodium [Moles/Vol]138 mmol/X130-801CsmiddoprKettering Health Behavioral Medical CenterUrea nitrogen [Mass/Vol]11.0 mg/dL7.0-18.0[facility] CenterUrea nitrogen/Creatinine [Mass ratio]11.6 mg/mgKettering Health Behavioral Medical CenterLaboratory - Hematology and Cell countson 31-05-5562Oklaxmyr granulocytes/100 WBC (Bld)0.5 %0.0-0.5FUniversity Hospitals Geauga Medical Center Leukocytes [#/volume] corrected for nucleated erythrocytes in Blood by Automated counon 09-21-7752RIC corrected for nucl RBC Auto (Bld) [#/Vol]Leukocytes [#/volume] corrected for nucleated erythrocytes in Blood by Automated coun 4.0-11.0[facility] Medical CenterLymphocytes Auto (Bld) [#/Vol]on 42-49-4042Ewhvkzvmkqp (Bld) [#/Vol]Lymphocytes [#/volume] in Blood by Automated countLow1.2-3.8[facility] CenterLymphocytes/100 WBC Auto (Bld)on 13-96-1673Yhkhyazttkt/100 WBC (Bld)Lymphocytes/100 leukocytes in Blood by Automated mreodMkg18.5-60.0[facility] Medical CenterMCH Auto (RBC) [Entitic mass]on 86-75-4449XGK (RBC) [Entitic mass]MCH [Entitic mass] by Automated count25.9-34.0[facility] Medical CenterMCHC Auto (RBC) [Mass/Vol]on 32-20-6894QCNY (RBC) [Mass/Vol]MCHC [Mass/volume] by Automated count29.9-35.2FUniversity Hospitals Geauga Medical CenterMCV Auto (RBC) [Entitic vol]on 73-29-5534DPA (RBC) [Entitic vol]MCV [Entitic volume] by Automated count 80.0-94.0[facility] CenterMonocytes Auto (Bld) [#/Vol]on 17-02-5036Jehvtsbbi (Bld) [#/Vol]Automated blood monocyte countHigh0.3-0.8 [facility] CenterMonocytes/100 WBC Auto (Bld)on 05-22-2024 Monocytes/100 WBC (Bld)Automated monocyte %High1.7-12.0[facility] CenterNeutrophils Auto (Bld) [#/Vol]on 92-34-4161Mpqhvckyvyp (Bld) [#/Vol]Neutrophils [#/volume] in Blood by Automated count1.4-6.5FUniversity Hospitals Geauga Medical CenterNeutrophils/100 WBC Auto (Bld)on 05-22-2024 Neutrophils/100 WBC (Bld)Automated neutrophil %43.0-75.0[facility] CenterNo Panel Informationon 22-34-7104Ardmcicfxfu # (Auto)0.3 10 3/uL 0.0-0.7FUniversity Hospitals Geauga Medical CenterImmature Granulocyte # (Auto)0.03 10 3/uL0.00-0.03[facility] Medical CenterPlatelet mean volume Auto (Bld) [Entitic vol]on 94-34-5844Zwavhuxc mean volume (Bld) [Entitic vol]Platelet mean volume [Entitic volume] in Blood by Automated count9.5-13.5FUniversity Hospitals Geauga Medical CenterPlatelets Auto (Bld) [#/Vol]on 39-40-8146Jfeixvwlg (Bld) [#/Vol] Platelets [#/volume] in Blood by Automated goyge828-295JogfecnowKettering Health Behavioral Medical CenterRBC Auto (Bld) [#/Vol]on 03-71-1925EMO (Bld) [#/Vol]Erythrocytes [#/volume] in Blood by Automated countLow4.70-6.10Morrow County Hospitalerum or plasma albumin/globulin mass ratioon 67-25-9785Yardylm/Globulin [Mass ratio]Serum or plasma albumin/globulin mass ratioMorrow County Hospitalerum or plasma anion gap determinationon 60-92-9937Qpdqa gap [Moles/Vol]Serum or plasma anion gap determinationKettering Health Behavioral Medical CenterEstimated glomerular filtration rate (GFR) non- Americanon 52-10-0556UXY/1.73 sq M.predicted among non-blacks MDRD (S/P/Bld) [Vol rate/Area]Estimated glomerular filtration rate (GFR) non- AmericanLow>=60 mL/min/1.73m 2FUniversity Hospitals Geauga Medical CenterLaboratory - Chemistry and Chemistry - challengeon 37-80-2345Tegfmag [Mass/Vol]8.9 mg/dL8.5-10.1FUniversity Hospitals Geauga Medical CenterChloride [Moles/Vol]102 mmol/X56-015XuxpknztqKettering Health Behavioral Medical CenterCO2 [Moles/Vol]25.4 mmol/L21.0-32.0[facility] CenterCreatinine [Mass/Vol]1.26 mg/dL0.70-1.30[facility] GFR/1.73 sq M.predicted MDRD (S/P/Bld) [Vol rate/Area]mL/min/{1.73_m2}>=60 mL/min/1.[address]m [address] [place], [place] [address]Glucose [Mass/Vol]91 mg/uL38-156 [facility] CenterPotassium [Moles/Vol]4.1 mmol/L3.5-5.1FLake County Memorial Hospital - Westodium [Moles/Vol]137 mmol/D004-915AwwpiaplhKettering Health Behavioral Medical CenterUrea nitrogen [Mass/Vol]12.0 mg/dL7.0-18.0[facility] CenterUrea nitrogen/Creatinine [Mass ratio]9.5 mg/mgMorrow County Hospitalerum or plasma anion gap determinationon 64-34-4469Bxanz gap [Moles/Vol]Serum or plasma anion gap determinationKettering Health Behavioral Medical CenterECG [address] 66-45-7276ZGX revealed normal sinus rhythm, IVCD, prolonged QT interval, diffuse ST and T changes, abnormal ECGCPACSCleveland Clinic Lutheran Hospital Work Phone: basic Metabolic Panelon 95-24-8586Jvqea gap [Moles/Vol]9.0 mmol/LNormal6.0-15.0The [facility] Physician GroupComment on above:Performed By: #### BMP #### [facility] [address] [place] [address] USACalcium [Mass/Vol]8.0 mg/dLLow8.6-10.3The [facility] Physician GroupComment on above:Result Comment: PERFORMED BY: [place] [address] PATHOLOGIST DATA ENTRY COORDINATOR BETHANY ALBRIGHT M.D.Performed By: #### BMP #### [place] [address] USAChloride [Moles/Vol]100 mmol/YLynljj79-237Klf [facility] Physician GroupComment on above:Performed By: #### BMP #### [place] [address] USACO2 [Moles/Vol]30.3 mmol/OXrcndx09.0-31.0The [facility] Physician GroupComment on above:Performed By: #### BMP #### [facility] [address] [place] [address] USACreatinine [Mass/Vol]1.09 mg/dLNormal0.70-1.30The [facility] Physician GroupComment on above:Performed By: #### BMP #### [facility] [address] [place] [address] USAGFR/1.73 sq M.predicted MDRD (S/P/Bld) [Vol rate/Area] mL/min/{1.73_m2}NormalThe [facility] Physician GroupComment on above:Performed By: #### BMP #### [facility] [address] [place] [address] USAGlucose [Mass/Vol]98 mg/mUSjaduk38-478Pzu [facility] Physician Alliance HospitalComment on above:Result Comment: Random Glucose Reference Range is dependent on time and content of last meal. Glucose of more than 200 mg/dL in a nonstressed, ambulatory subject supports the diagnosis of Diabetes Mellitus. ADA recommended reference rangePerformed By: #### BMP #### [facility] [address] [place] [address] USAPotassium [Moles/Vol]3.3 mmol/LLow3.5-5.1The [facility] Physician GroupComment on above:Performed By: #### BMP #### [facility] [address] [place] [address] USASodium [Moles/Vol]136 mmol/GCmtdbg169-836Pka [facility] Physician GroupComment on above:Performed By: #### BMP #### [facility] [address] [place] [address] USAUrea nitrogen [Mass/Vol]23 mg/dLNormal7-25The [facility] Physician GroupComment on above:Performed By: #### BMP #### [facility] [address] [id number] USACalcium [Mass/volume] in Serum or PlasmaOrdered By: Adam Del Valle on 88-82-6296Xkeqiox [Mass/Vol]Calcium [Mass/volume] in Serum or PlasmaLow8.6-10.3FUniversity Hospitals Geauga Medical CenterCarbon dioxide, total [Moles/volume] in Serum or PlasmaOrdered By: Adam Del Valle 10-81-2565PD1 [Moles/Vol]Carbon dioxide, total [Moles/volume] in Serum or Zevzxj86.0-31.0 [facility] CenterChloride [Moles/volume] in Serum or Plasma Ordered By: Adam Del Valle 50-86-6106Osaetxxk [Moles/Vol]Chloride [Moles/volume] in Serum or Itrpug46-599EaamlfyuqKettering Health Behavioral Medical Center Creatinine [Mass/volume] in Serum or PlasmaOrdered By: Adam Del Valle 28-88-7383Xeenwwtnby [Mass/Vol]Creatinine [Mass/volume] in Serum or Plasma 0.70-1.30[facility] CenterGlucose [Mass/volume] in Serum or PlasmaOrdered By: Adam Del Valle on 28-56-9621Yquazpc [Mass/Vol]Glucose [Mass/volume] in Serum or Dnndjc38-256XupkrlxsyKettering Health Behavioral Medical CenterComment on above:ADA recommended reference rangeRandom Glucose Reference Range is dependent on time and content of last meal. Glucose of more than 200 mg/dL in a nonstressed, ambulatory subject supports the diagnosisof Diabetes Mellitus.No Panel InformationOrdered By: Adam Del Valle on 97-25-9503Vidynopdn GFR (CKD-EPI)> 60.0 mL/MinKettering Health Behavioral Medical CenterPharmacy Creatinine Clearance (Chem N/Chillicothe HospitalPotassium [Moles/volume] in Serum or Plasma Ordered By: Adam Del Valle on 56-78-7158Tzcsqhkzw [Moles/Vol]Potassium [Moles/volume] in Serum or PlasmaLow3.5-5.1FUniversity Hospitals Geauga Medical Center Serum or plasma anion gap determinationOrdered By: Adam Del Valle on 03-26-2024 Anion gap [Moles/Vol]Serum or plasma anion gap determination6.0-15.0Morrow County Hospitalodium [Moles/volume] in Serum or PlasmaOrdered By: Adam Del Valle on 02-58-1922Ijqvyv [Moles/Vol]Sodium [Moles/volume] in Serum or Ncdwse543-304EmqqxgywvKettering Health Behavioral Medical CenterUrea nitrogen [Mass/volume] in Serum or PlasmaOrdered By: Adam Del Valle on 39-97-4717Rdom nitrogen [Mass/Vol] Urea nitrogen [Mass/volume] in Serum or Plasma7-25[facility] Medical CenterECG 12 lead ECGon 30-13-8870FQM 12 lead ECGPARKVIEW HEALTH [place] [address] Electrocardiograph Report Signed Patient: Mary Mcadams MR#: [id number] : 1955 Acct:[id number] Age/Sex: 68 / M ADM Date: 03/13/24 Loc: Room: [address] [place] [address] Type: ADM IN Attending Dr: Altaf Jones MD Ordering Provider: Shannon Gonzalez MD, [facility] Date of Service: 03/20/2411/05/699 ECG/ECG 12 lead ECG: Pre-cardioversion rhythm assessment Copies to: Test Reason : Blood Pressure : */* mmHG Vent. Rate : 66 BPM Atrial Rate : 66 BPM P-R Int : 206 ms QRS Dur : 132 ms QT Int : 436 ms P-R-T Axes : -9 107 -27 degrees QTcB Int : 457 ms Normal sinus rhythm with sinus arrhythmia Rightward axis Nonspecific intraventricular block Abnormal ECG When compared with ECG of 19-Mar-2024 07:37, QRS axis shifted right T wave inversion now evident in Inferior leads Confirmed by SHANNON GONZALEZ MD, FACC ([id number]) on 03/20/2024 2:23:39 PM Referred By: Shannon Gonzalez Electronically Signed By: SHANNON JETT Transcribed By: MUS Signed By Shannon Gonzalez MD, [facility] 03/20/[address] [place] [address] Physician GroupECG 12 lead ECGon 34-20-8752AKI 12 lead ECGPARKVIEW HEALTH [place] [address] Electrocardiograph Report Signed Patient: Mary Mcadams MR#: [id number] : 1955 Acct:[id number] Age/Sex: 68 / M ADM Date: 03/13/24 Loc: Room: [address] [place] [address] Type: ADM IN Attending Dr: Altaf Jones MD Ordering Provider: Shannon Gonzalez MD, [facility] Date of Service: 03/19/2410/05/499 ECG/ECG 12 lead ECG: AF Copies to: Test Reason : Blood Pressure : */* mmHG Vent. Rate : 69 BPM Atrial Rate : 69 BPM P-R Int : 208 ms QRS Dur : 132 ms QT Int : 446 ms P-R-T Axes : 41 -24 15 degrees QTcB Int : 477 ms Normal sinus rhythm Nonspecific intraventricular block Abnormal ECG Confirmed by SHANNON GONZALEZ MD, FACC ([id number]) on 03/19/2024 2:12:15 PM Referred By: Shannon Gonzalez Electronically Signed By: SHANNON GONZALEZ MD, FACC Transcribed By: MUS Signed By Shannon Gonzalez MD, FACC 03/19/[address] [place] [address] Physician GroupBasic Metabolic Panelon 63-29-8064Ccthnkhfjw Clr Calc Bwzufblq74.44NormHealthmark Regional Medical Center Physician Group Comment on above:Result Comment: PERFORMED BY: [place] [address] PATHOLOGIST DATA ENTRY COORDINATOR BETHANY ALBRIGHT M.D.Performed By: #### CMP, CBC #### [facility] [address] [place] [address] USAGFR/1.73 sq M.predicted MDRD (S/P/Bld) [Vol rate/Area] mL/min/{1.73_m2}NormalThe [facility] Center Physician GroupComment on above:Performed By: #### CMP, CBC #### [place] [address] USACalcium [Mass/volume] in Serum or PlasmaOrdered By: Altaf Jones on 56-84-5494Tubpbvk [Mass/Vol]8.6 mg/dLNormal8.6-10.3FUniversity Hospitals Geauga Medical CenterComment on above:Performed By: #### CMP, CBC #### [place] [address] USACalcium [Mass/Vol]Calcium [Mass/volume] in Serum or Plasma 8.6-10.3FUniversity Hospitals Geauga Medical CenterCarbon dioxide, total [Moles/volume] in Serum or PlasmaOrdered By: Altaf Jones on 36-23-9627XT0 [Moles/Vol]30.2 mmol/RHuzbst00.0-31.0[facility] Behavior[facility] Medical CenterComment on above:Performed By: #### CMP, CBC #### [place] [id number] USACO2 [Moles/Vol]Carbon dioxide, total [Moles/volume] in Serum or Ddrluv69.0-31.0[facility] Medical CenterChloride [Moles/volume] in Serum or PlasmaOrdered By: Altaf Jones on 44-25-8640Rtdbxhwc [Moles/Vol] 97 mmol/GDia55-511RyiywxlioKettering Health Behavioral Medical CenterComment on above:Performed By: #### CMP, CBC #### [address] [place] [address] USAChloride [Moles/Vol]Chloride [Moles/volume] in Serum or ZmddewLbn32-339XpymgkexrKettering Health Behavioral Medical CenterCreatinine [Mass/volume] in Serum or PlasmaOrdered By: Altaf Jones on 82-30-3422Fmxiatmtgf [Mass/Vol]0.98 mg/dLNormal0.70-1.30[facility] Medical CenterComment on above:Performed By: #### CMP, CBC #### [facility] [address] [place], [place] [address] USACreatinine [Mass/Vol]Creatinine [Mass/volume] in Serum or Plasma0.70-1.30[facility] Behavioral Medical CenterECG 12 lead ECGon 50-81-9163JXB 12 lead [facility] Main [place] [address] [place], [place] [address] Electrocardiograph Report Signed Patient: Mary Mcadams MR#: [id number] 3267 : 1955 Acct:[id number] Age/Sex: 68 / M ADM Date: 03/13/24 Loc: Room: [address] [place] [address] Type: ADM IN Attending Dr: Altaf Jones MD Ordering Provider: Chacho Burroughs MD Date of Service: 03/18/2409/05/1913 ECG/ECG 12 lead ECG: rythym change Copies to: Test Reason : Blood Pressure : */* mmHG Vent. Rate : 79 BPM Atrial Rate : 79 BPM P-R Int : 200 ms QRS Dur : 130 ms QT Int : 410 ms P-R-T Axes : 11 -30 32 degrees QTcB Int : 470 ms Normal sinus rhythm Left axis deviation Left ventricular hypertrophy with QRS widening ( R in aVL , [place] product ) Abnormal ECG Confirmed by LISA SALMON FACSHANNON ([id number]) on 03/19/2024 2:11:56 PM Referred By: Shannon Gonzalez Electronically Signed By: SHANNON GONZALEZ MD FAC Transcribed By: MUS Signed By Shannon Gonzalez MD, FACC 03/19/[address] [place] [address] Physician GroupECG 12 lead ECGPARKVIEW [facility] Main [place] [address] [place] [address] Electrocardiograph Report Signed Patient: Mary Mcadams MR#: [id number] 3267 : 1955 Acct:[id number] Age/Sex: 68 / M ADM Date: 03/13/24 Loc: Room: [address] [place] [address] Type: ADM IN Attending Dr: Altaf Jones MD Ordering Provider: Shannon Gonzalez MD, [facility] Date of Service: 03/18/2409/05/499 ECG/ECG 12 lead ECG: AF Copies to: Test Reason : Blood Pressure : */* mmHG Vent. Rate : 89 BPM Atrial Rate : * BPM P-R Int : * ms QRS Dur : 132 ms QT Int : 394 ms P-R-T Axes : * -44 103 degrees QTcB Int : 479 ms Atrial fibrillation Left axis deviation Left bundle branch block Abnormal ECG When compared with ECG of 17-Mar-2024 23:22, (Unconfirmed) No significant change was found Confirmed by LISA SALMON [facility] ([id number]) on 03/18/2024 11:34:31 AM Referred By: Electronically Signed By: SHANNON GONZALEZ MD [facility] Transcribed By: MUS Signed By Shannon Gonzalez MD, [facility] 03/18/[address] [place] [address] Physician GroupGlucose [Mass/volume] in Serum or PlasmaOrdered By: Altaf Jones on 83-82-8349Kueyzab [Mass/Vol]93 mg/dL Kcxnce26-116JkftmrayrKettering Health Behavioral Medical CenterComment on above:ADA recommended reference rangeRandom Glucose Reference Range is dependent on time and content of last meal. Glucose of more than 200 mg/dL in a nonstressed, ambulatory subject supports the diagnosisof Diabetes Mellitus.Result Comment: Random Glucose Reference Range is dependent on time and content of last meal. Glucose of more than 200 mg/dL in a nonstressed, ambulatory subject supports the diagnosis of Diabetes Mellitus. ADA recommended reference rangePerformed By: #### CMP, CBC #### [place] [address] USAGlucose [Mass/Vol]Glucose [Mass/volume] in Serum or Plasma 70-100Firelands Regional Medical CenterComment on above:ADA recommended reference rangeRandom Glucose Reference Range is dependent on time and content of last meal. Glucose of more than 200 mg/dL in a nonstressed, ambulatory subject supports the diagnosisof Diabetes Mellitus.No Panel InformationOrdered By: Altaf Jones on 22-41-0909Rorvwassd GFR (CKD-EPI)> 60.0 mL/MinKettering Health Behavioral Medical CenterPharmacy Creatinine Clearance (Chem71.44[facility] Medical CenterPotassium [Moles/volume] in Serum or PlasmaOrdered By: Altaf Jones on 38-52-7807Whrozpjqr [Moles/Vol]4.1 mmol/LNormal3.5-5.1 [facility] Medical CenterComment on above:Performed By: #### CMP, CBC #### [facility] [address] [place] [address] USAPotassium [Moles/Vol]Potassium [Moles/volume] in Serum or Plasma3.5-5.1FLake County Memorial Hospital - Westerum or plasma anion gap determinationOrdered By: Altaf Jones on 19-24-1381Axpme gap [Moles/Vol]8.9 mmol/LNormal6.0-15.0[facility] Medical CenterComment on above:Performed By: #### CMP, CBC #### [facility] [address] [place] [address] USAAnion gap [Moles/Vol]Serum or plasma anion gap determination6.0-15.0Morrow County Hospitalodium [Moles/volume] in Serum or PlasmaOrdered By: Altaf Jones on 34-56-0533Lrqyml [Moles/Vol]132 mmol/ZScl063-949UhbvzkqwoKettering Health Behavioral Medical CenterComment on above:Performed By: #### CMP, CBC #### [facility] [address] [place] [id number] USASodium [Moles/Vol]Sodium [Moles/volume] in Serum or Plasma Kpf905-692LguqbtbpyKettering Health Behavioral Medical CenterUrea nitrogen [Mass/volume] in Serum or PlasmaOrdered By: Altaf Jones on 68-09-0336Qrfg nitrogen [Mass/Vol]31 mg/dL92 Saunders StreetComment on above:Performed By: #### CMP, CBC #### [facility] [address] [place] [id number] USAUrea nitrogen [Mass/Vol]Urea nitrogen [Mass/volume] in Serum or Plasma92 [address] StreetBasic Metabolic Panelon 24-78-8922Ielpf gap [Moles/Vol]9.7 mmol/LNormal6.0-15.0The [facility] Physician GroupComment on above:Performed By: #### BMP ####[place] [address] USACalcium [Mass/Vol]8.7 mg/dLNormal 8.6-10.3The [facility] Physician GroupComment on above:Performed By: #### BMP ####[place] [address] [place] Chloride [Moles/Vol]96 mmol/CQgn75-155Ctd [facility] Physician GroupComment on above:Performed By: #### BMP ####[place] [address] USACO2 [Moles/Vol]32.3 mmol/LHigh21.0-31.0The [facility] Physician GroupComment on above:Performed By: #### BMP ####[place] [address] USACreatinine [Mass/Vol]0.95 mg/dLNormal0.70-1.30The [facility] Physician GroupComment on above:Performed By: #### BMP ####[place] [address] USACreatinine Clr Calc Zshbuiyt48.53NormalThe [facility] Physician GroupComment on above:Result Comment: PERFORMED BY: [address] [place]MargeHEATH[place] [id number] PATHOLOGIST DATA ENTRY COORDINATOR BETHANY ALBRIGHT M.D.Performed By: #### BMP ####[place] [address] USAGFR/1.73 sq M.predicted MDRD (S/P/Bld) [Vol rate/Area]mL/min/{1.73_m2}NormalThe [facility] Physician GroupComment on above: Performed By: #### BMP ####[place] [address] [place] [id number] USAGlucose [Mass/Vol]111 mg/sGNcdp96-107Gth [facility] Physician GroupComment on above:Result Comment: Random Glucose Reference Range is dependent on time and content of last meal. Glucose of more than 200 mg/dL in a nonstressed, ambulatory subject supports the diagnosis of Diabetes Mellitus. ADA recommended reference rangePerformed By: #### BMP ####[place] [address] USAPotassium [Moles/Vol]4.0 mmol/LNormal3.5-5.1The [facility] Physician GroupComment on above:Performed By: #### BMP ####[place] [address] USASodium [Moles/Vol]134 mmol/XPnm257-089Fgo [facility] Physician GroupComment on above:Performed By: #### BMP ####[place] [address] USAUrea nitrogen [Mass/Vol]28 mg/dLHigh7-25The [facility] Physician GroupComment on above:Performed By: #### BMP ####[place] [address] USAECG 12 lead ECGon 18-82-2388WHE 12 lead ECGPARKVIEW [facility]ALTH [facility] Main [place] [address] [place] [address] Electrocardiograph Report Signed Patient: Mary Mcadams MR#: [id number] 3267 : 1955 Acct:[id number] Age/Sex: 68 / M ADM Date: 03/13/24 Loc: Room: [address] [place] [address] Type: ADM IN Attending Dr: Altaf Jones MD Ordering Provider: Shannon Gonzalez MD, [facility] Date of Service: 03/17/2408/05/2321 ECG/ECG 12 lead ECG: afib Copies to: Test Reason : Blood Pressure : */* mmHG Vent. Rate : 93 BPM Atrial Rate : * BPM P-R Int : * ms QRS Dur : 136 ms QT Int : 384 ms P-R-T Axes : * -48 102 degrees QTcB Int : 477 ms Atrial flutter with variable block Left bundle branch block Abnormal ECG When compared with ECG of 17-Mar-2024 19:25, (Unconfirmed) No significant change was found Confirmed by SHANNON GONZALEZ MD, FACC ([id number]) on 03/19/2024 2:11:38 PM Referred By: Shannon Gonzalez Electronically Signed By: SHANNON GONZALEZ MD [facility] Transcribed By: MUS Signed By Shannon Gonzalez MD, [facility] 03/19/[address] [place] [address] Physician GroupEC 12 lead ECGPARKVIEW [facility]ALTH [facility] Main [place] [address] [place] [address] Electrocardiograph Report Signed Patient: Mary Mcadams MR#: [id number] 3267 : 1955 Acct:[id number] Age/Sex: 68 / M ADM Date: 03/13/24 Loc: Room: [address] [place] [address] Type: ADM IN Attending Dr: Altaf Jones MD Ordering Provider: Shannon Gonzalez MD, [facility] Date of Service: 03/17/2408/05/1930 ECG/ECG 12 lead ECG: Tikosyn Drug Load Copies to: Test Reason : Blood Pressure : */* mmHG Vent. Rate : 109 BPM Atrial Rate : * BPM P-R Int : * ms QRS Dur : 132 ms QT Int : 364 ms P-R-T Axes : * -47 121 degrees QTcB Int : 490 ms Atrial fibrillation with rapid ventricular response with premature ventricular or aberrantly conducted complexes Left bundle branch block Abnormal ECG When compared with ECG of 17-Mar-2024 07:04, (Unconfirmed) No significant change was found Confirmed by SHANNON GONZALEZ MD, FACC ([id number]) on 03/18/2024 11:34:22 AM Referred By: Electronically Signed By: SHANNON GONZALEZ MD, FACC Transcribed By: MUS Signed By Shannon Gonzalez [facility]PRES[facility] 03/18/24 0694[facility] Physician GroupECG 12 lead ECGPARKVIEW HEALTH [facility] Main [place] [address] [place] [address] Electrocardiograph Report Signed Patient: Mary Mcadams MR#: [id number] 3267 : 1955 Acct:[id number] Age/Sex: 68 / M ADM Date: 03/13/24 Loc: Room: [address] [place] [address] Type: ADM IN Attending Dr: Altaf Jones MD Ordering Provider: Shannon Gonzalez MD, [facility] Date of Service: 03/17/2408/05/499 ECG/ECG 12 lead ECG: AF Copies to: Test Reason : Blood Pressure : */* mmHG Vent. Rate : 96 BPM Atrial Rate : * BPM P-R Int : * ms QRS Dur : 134 ms QT Int : 390 ms P-R-T Axes : * -31 108 degrees QTcB Int : 492 ms Atrial fibrillation Left axis deviation Left bundle branch block Abnormal ECG When compared with ECG of 16-Mar-2024 07:00, No significant change was found Confirmed by Andres Herrera ([id number]) on 03/18/2024 8:41:55 AM Referred By: Electronically Signed By: Andres Herrera Transcribed By: MUS Signed By Andres Herrera MD 03/18/24 0841[facility] GroupBasic Metabolic Panelon 48-07-7393Wyibd gap [Moles/Vol]11.9 mmol/LNormal6.0-15.0The [facility] Physician GroupComment on above:Performed By: #### CMP, CBC #### [facility] [address] [place] [address] USACalcium [Mass/Vol]8.2 mg/dLLow8.6-10.3The [facility] Physician GroupComment on above:Performed By: #### CMP, CBC #### [facility] [address] [place] [address] USAChloride [Moles/Vol]95 mmol/MSsa63-425Qyg [facility] Physician GroupComment on above:Performed By: #### CMP, CBC #### [place] [address] USACO2 [Moles/Vol]28.6 mmol/QKofike82.0-31.0The [facility] Physician GroupComment on above:Performed By: #### CMP, CBC #### [place] [address] USACreatinine [Mass/Vol]0.82 mg/dLNormal0.70-1.30The [facility] Physician GroupComment on above:Performed By: #### CMP, CBC #### [place] [address] USACreatinine Clr Calc Thhokkxf39.62NormalThe [facility] Physician GroupComment on above:Result Comment: PERFORMED BY: [place] [address] PATHOLOGIST DATA ENTRY COORDINATOR BETHANY ALBRIGHT M.D.Performed By: #### CMP, CBC #### [place] [address] USAGFR/1.73 sq M.predicted MDRD (S/P/Bld) [Vol rate/Area] mL/min/{1.73_m2}NormalThe [facility] Physician GroupComment on above:Performed By: #### CMP, CBC #### [place] [address] USAGlucose [Mass/Vol]127 mg/qUUlbh68-039Mor [facility] Physician GroupComment on above:Result Comment: Random Glucose Reference Range is dependent on time and content of last meal. Glucose of more than 200 mg/dL in a nonstressed, ambulatory subject supports the diagnosis of Diabetes Mellitus. ADA recommended reference rangePerformed By: #### CMP, CBC #### [place] [address] USAPotassium [Moles/Vol]3.5 mmol/LNormal3.5-5.1The [facility] Physician GroupComment on above:Performed By: #### CMP, CBC #### [place] [address] USASodium [Moles/Vol]132 mmol/USer000-089Qxm [facility] Physician GroupComment on above:Performed By: #### CMP, CBC #### [facility] [address] [place] [id number] USAUrea nitrogen [Mass/Vol]22 mg/dLNormal [facility] Physician GroupComment on above:Performed By: #### CMP, CBC #### [facility] [address] [place] [address] USAECG 12 lead ECGon 04-41-2769ZVS 12 lead ECGPARKVIEW HEALTH [facility] Main [place] [address] [place] [address] Electrocardiograph Report Signed Patient: Mary Mcadams MR#: [id number] 3267 : 1955 Acct:[id number] Age/Sex: 68 / M ADM Date: 03/13/24 Loc: Room: [address] [place] [address] Type: ADM IN Attending Dr: Altaf Jones MD Ordering Provider: Shannon Gonzalez MD, [facility] Date of Service: 03/16/2407/08/499 ECG/ECG 12 lead ECG: AF Copies to: Test Reason : Blood Pressure : */* mmHG Vent. Rate : 101 BPM Atrial Rate : * BPM P-R Int : * ms QRS Dur : 138 ms QT Int : 388 ms P-R-T Axes : * -37 31 degrees QTcB Int : 503 ms Atrial fibrillation Left axis deviation Nonspecific intraventricular block Minimal voltage criteria for LVH, may be normal variant ( [place] product ) Nonspecific T wave abnormality Abnormal ECG When compared with ECG of 13-Mar-2024 20:43, No significant change was found Confirmed by Andres Herrera ([id number]) on 03/16/2024 5:51:30 PM Referred By: Electronically Signed By: Andres Herrera Transcribed By: MUS Signed By Andres Herrera MD 03/16/[address] [place] [address] Physician GroupBasic Metabolic Panelon 65-86-3154Iuskq gap [Moles/Vol]14.2 mmol/LNormal6.0-15.0The [facility] Physician GroupComment on above:Performed By: #### BMP ####[facility] [address] [place] [id number] USACalcium [Mass/Vol]8.9 mg/dLNormal 8.6-10.3The [facility] Physician GroupComment on above:Performed By: #### BMP ####[address] [address] [place] Chloride [Moles/Vol]94 mmol/KZza22-071Pjc [facility] Physician Alliance HospitalComment on above:Performed By: #### BMP ####[place] [address] USACO2 [Moles/Vol]28.7 mmol/KWcmjah12.0-31.0The [facility] Physician GroupComment on above:Performed By: #### BMP ####[place] [address] USACreatinine [Mass/Vol] 0.89 mg/dLNormal0.70-1.30The [facility] Physician Alliance HospitalComment on above:Performed By: #### BMP ####[place] [address] USACreatinine Clr Calc Qtrshznr73.89NoWakeMed [facility] Hospital Physician Group Comment on above:Result Comment: PERFORMED BY: [facility] [address] [place] [id number] PATHOLOGIST DATA ENTRY COORDINATOR BETHANY ALBRIGHT M.D.Performed By: #### BMP ####[place] [address] USAGFR/1.73 sq M.predicted MDRD (S/P/Bld) [Vol rate/Area]mL/min/{1.73_m2}NormalThe [facility] Physician GroupComment on above: Performed By: #### BMP ####[address] [address] USAGlucose [Mass/Vol]141 mg/uVDyzh49-761Erc [facility] Physician Alliance HospitalComment on above:Result Comment: Random Glucose Reference Range is dependent on time and content of last meal. Glucose of more than 200 mg/dL in a nonstressed, ambulatory subject supports the diagnosis of Diabetes Mellitus. ADA recommended reference rangePerformed By: #### BMP ####[address] [place] [address] USAPotassium [Moles/Vol]3.9 mmol/LNormal3.5-5.1The [facility] Physician GroupComment on above:Result Comment: Hemolysis is present at a level that could interfere with the result. Contact lab if redraw is requiredPerformed By: #### BMP ####[place] [address] USASodium [Moles/Vol]133 mmol/L Thq302-211Lfl [facility] Physician GroupComment on above:Performed By: #### BMP ####[place] [address] USAUrea nitrogen [Mass/Vol]16 mg/dLNormal7-25The [facility] Physician GroupComment on above:Performed By: #### BMP ####[place] [address] USAUS carotid doppler BIon 30-95-1324UO carotid doppler [facility] Main [place] [address] [place] [address] Ultrasound Report Signed Patient: Mary Mcadams MR#: [id number] 3267 : 1955 Acct:[id number] Age/Sex: 68 / M ADM Date: 03/13/24 Loc: Room: [address] [place] [address] Type: ADM IN Attending Dr: Altaf Jones MD Ordering Provider: Lula Muniz APRN Date of Service: 03/14/24 US/US carotid doppler BI: ica stenosis, altered mental status Copies to: MD Lula Carballo APRN CAROTID DUPLEX INDICATION: Syncope PROCEDURE: Color-flow duplex scanning is used to interrogate the extracranial carotid arterial system, as well as both vertebral arteries. Both carotid bifurcations show mild to moderate heterogeneous plaque formation. The proximal right internal carotid artery shows a highest peak systolic velocity of 133 cm/s with an end-diastolic velocity of 38.5 cm/s . The mid internal carotid artery measures 165 cm/s peak systolic and 56.3 cm/s end diastolic. The distal segment measures 107 cm/s peak systolic with an end diastolic velocity of 34.5 cm/s . The velocities of the right common carotid artery are 48.9 cm/s peak systolic and 11.6 cm/s end- diastolic proximally and 42.8 cm/s peak systolic and 10.8 cm/s end diastolic distally. The peak systolic velocity ratio of the internal to the common carotid artery is 3.86. The right external carotid artery measures 58.8 cm/s peak systolic. The right vertebral artery is not visualized. The proximal left internal carotid artery shows a highest peak systolic velocity of 34.5 cm/s with an end-diastolic velocity of 12.5 cm/s . The mid internal carotid artery measures 66.2 cm/s peak systolic and 24.2 cm/s end diastolic. The distal segment measures 66.6 cm/s peak systolic with an end diastolic velocity of 26.7 cm/s . The velocities of the left common carotid artery are 73.2 cm/s peak systolic and 18.2 cm/s end-diastolic proximally and 53.9 cm/s peak systolic and 11.6 cm/s end diastolic distally. The peak systolic velocity ratio of the internal to the common carotid artery is 0.91 . The left external carotid artery measures 33.2 cm/s peak systolic. The left vertebral artery is patent at 39.3 cm/s with antegrade flow. US/US carotid doppler BI IMPRESSION: 50-69% stenosis of the right extracranial internal carotid artery. There is a focal area of dense calcified plaque formation with signal dropout and this area is not completely interrogated. The degree of stenosis may be more severe than that documented just based on the velocities. Less than 50% stenosis of the left extracranial internal carotid artery. The right vertebral artery is not visualized. The left vertebral artery is patent with antegrade flow. Impression dictated by: Grupo Mi M.D.03/15/2024 2:24 PM Dictation Location[facility] Tech: Jemma Houston Transcribed By: JEANIE 03/15/24 142 Dictated By: Grupo Mi MD 03/15/24 142 Signed By: 03/15/24 1424[facility] Physician GroupAppearance of UrineOrdered By: Maricruz Godoy on 82-67-4029Grfqgpuoxj (U)Urine appearanceClearFUniversity Hospitals Geauga Medical CenterBacteria [Presence] in Urine by AutomatedOrdered By: Maricruz Godoy on 35-49-9914Xqwqdfsg Auto Ql (U)1+ [HPF]HighNone [facility] Medical CenterBacteria Auto Ql (U)Bacteria [Presence] in Urine by AutomatedHighUC HealthBasophils Auto (Bld) [#/Vol]Ordered By: Maricruz Godoy on 36-71-1103Wjtbthahe (Bld) [#/Vol]0.1 10*3/uL0.0-0.2FUniversity Hospitals Geauga Medical CenterBasophils (Bld) [#/Vol]Automated basophil count0.0-0.2 [facility] CenterBasophils/100 WBC Auto (Bld)Ordered By: Maricruz Godoy on 55-74-3481Qivsjvdhw/100 WBC (Bld)1.2 %.[facility] CenterBasophils/100 WBC (Bld)Automated basophil %.[facility] Medical CenterBilirubin Test strip Ql (U)Ordered By: Maricruz Godoy on 69-84-6862Ohpzdyqbc Ql (U)NegativeNegativeKettering Health Behavioral Medical CenterBilirubin Ql (U) Bilirubin.total [Presence] in Urine by Test stripNegativeKettering Health Behavioral Medical CenterColor Auto (U)Ordered By: Maricruz Godoy on 62-48-7112Yzxkf (U)Yellow YellowKettering Health Behavioral Medical CenterColor (U)Color of Urine by AutoYellow [facility] Medical CenterEosinophils Auto (Bld) [#/Vol]Ordered By: Maricruz Godoy on 31-02-9244Abdqkfrljof (Bld) [#/Vol]0.2 10*3/uL0.0-0.45[facility] Medical CenterEosinophils (Bld) [#/Vol]Automated eosinophil count 0.0-0.45[facility] Medical CenterEosinophils/100 WBC Auto (Bld)Ordered By: Maricruz Godoy on 56-60-7492Tsblzdursnd/100 WBC (Bld)2.3 %.[facility] CenterEosinophils/100 WBC (Bld)Automated eosinophil %.[facility] Medical CenterEpithelial cells.squamous [#/area] in Urine sediment by Automated countOrdered By: Maricruz Godoy on 38-44-5111Zjaygcvpys cells.squamous Auto (Urine sed) [#/Area]N/AFUniversity Hospitals Geauga Medical CenterEpithelial cells.squamous Auto (Urine sed) [#/Area]Epithelial cells.squamous [#/area] in Urine sediment by Automated countKettering Health Behavioral Medical CenterErythrocyte distribution width Auto (RBC) [Ratio]Ordered By: Maricruz Godoy on 31-64-7138Zpldfzzcwgl distribution width (RBC) [Ratio]13.5 %12.0-14.8[facility] Medical CenterErythrocyte distribution width (RBC) [Ratio]Erythrocyte distribution width [Ratio] by Automated count12.0-14.8[facility] CenterErythrocytes [#/area] in Urine sediment by Automated countOrdered By: Maricruz Godoy on 43-09-2549DIO Auto (Urine sed) [#/Area]50-100 [HPF]High0-4FUniversity Hospitals Geauga Medical CenterRBC Auto (Urine sed) [#/Area]Erythrocytes [#/area] in Urine sediment by Automated countHigh036 Carpenter StreetGlucose [Mass/volume] in Urine by Test stripOrdered By: Maricruz Godoy on 21-26-7307Ifxrxub Test strip (U) [Mass/Vol] Normal mg/dLNoSumma Health Barberton CampusGlucose Test strip (U) [Mass/Vol]Glucose [Mass/volume] in Urine by Test stripNormOhioHealth Doctors HospitalHematocrit Auto (Bld) [Volume fraction]Ordered By: Maricruz Godoy on 52-78-8477Bgnybqgxpe (Bld) [Volume fraction]33.9 %Low38.8-50.0[facility] CenterHematocrit (Bld) [Volume fraction]Hematocrit [Volume Fraction] of Blood by Automated kuhhlJzn94.8-50.0[facility] CenterHemoglobin Test strip Ql (U)Ordered By: Maricruz Godoy on 62-25-3689Mvcfzovalt Ql (U)2+High NegativeKettering Health Behavioral Medical CenterHemoglobin Ql (U)Hemoglobin [Presence] in Urine by Test stripHighNegativeK[facility]tering Health Behavioral Medical CenterHemoglobin [Mass/volume] in BloodOrdered By: Maricruz Godoy on 59-36-6600Nomxwimvoy (Bld) [Mass/Vol]11.3 g/dLLow13.0-17.0[facility] CenterHemoglobin (Bld) [Mass/Vol]Hemoglobin [Mass/volume] in JeczjHvj19.0-17.0[facility] CenterHyaline casts [#/area] in Urine sediment by Automated countOrdered By: Maricruz Godoy on 71-86-6175Mbaklpl casts Auto (Urine sed) [#/Area]None [LPF] 0-8[facility] CenterHyaline casts Auto (Urine sed) [#/Area] Hyaline casts [#/area] in Urine sediment by Automated count0-8[facility] CenterKetones Test strip Ql (U)Ordered By: Maricruz Godoy on 03-14-2024 Ketones Ql (U)NegativeNegChillicothe HospitalKetst. [facility] Ql (U) Ketones [Presence] in Urine by Test stripNegChillicothe HospitalLaboratory - Microbiology and Antimicrobial susceptibilityOrdered By: Maricruz Godoy on 33-62-4682Djeewszx identified Cx Nom (U)Strep agalactiae - (group b)AbnormalKettering Health Behavioral Medical CenterLeukocyte clumps [Presence] in Urine by AutomatedOrdered By: Maricruz Godoy on 78-01-3119Sqyfuhmtu clumps Auto Ql (U) Occasional [LPF]HighNone [facility] Medical CenterLeukocyte clumps Auto Ql (U)Leukocyte clumps [Presence] in Urine by AutomatedHighWinslow Indian Healthcare Centere Community Memorial HospitalLeukocyte esterase [Presence] in Urine by Test stripOrdered By: Maricruz Godoy on 67-59-4206Pxsdlqoqx esterase Test strip Ql (U)3+ HighNegChillicothe HospitalLeukocyte esterase Test strip Ql (U)Leukocyte esterase [Presence] in Urine by Test stripHighNegChillicothe HospitalLeukocytes [#/area] in Urine sediment by Automated count Ordered By: Maricruz Godoy on 14-11-4730CYU Auto (Urine sed) [#/Area]50-100 [HPF] High0-4FUniversity Hospitals Geauga Medical CenterWBC Auto (Urine sed) [#/Area]Leukocytes [#/area] in Urine sediment by Automated countHigh0-4FUniversity Hospitals Geauga Medical CenterLeukocytes [#/volume] corrected for nucleated erythrocytes in Blood by Automated counOrdered By: Maricruz Godoy on 39-66-8905AGS corrected for nucl RBC Auto (Bld) [#/Vol]7.8 10*3/uL4.1-10.5FUniversity Hospitals Geauga Medical CenterWBC corrected for nucl RBC Auto (Bld) [#/Vol]Leukocytes [#/volume] corrected for nucleated erythrocytes in Blood by Automated coun4.1-10.5FUniversity Hospitals Geauga Medical CenterLymphocytes Auto (Bld) [#/Vol]Ordered By: Maricruz Godoy on 16-19-3734Kdwsztjsyhd (Bld) [#/Vol]0.7 10*3/uLLow1.00-4.8[facility] CenterLymphocytes (Bld) [#/Vol]Lymphocytes [#/volume] in Blood by Automated countLow1.00-4.8[facility] CenterLymphocytes/100 WBC Auto (Bld)Ordered By: Maricruz Godoy on 76-96-1828Weyhwhmsmtr/100 WBC (Bld)8.5 %. [facility] CenterLymphocytes/100 WBC (Bld)Lymphocytes/100 leukocytes in Blood by Automated count.[facility] HospitalH Auto (RBC) [Entitic mass]Ordered By: Maricruz Godoy on 66-73-2138ZFM (RBC) [Entitic mass]29.7 pg27.5-35.2FTriHealth Good Samaritan HospitalH (RBC) [Entitic mass] MCH [Entitic mass] by Automated count27.5-35.2FUniversity Hospitals Geauga Medical Center MCHC Auto (RBC) [Mass/Vol]Ordered By: Maricruz Godoy on 48-03-8136OFRU (RBC) [Mass/Vol]33.3 g/dL32.5-35.6FTriHealth Good Samaritan HospitalHC (RBC) [Mass/Vol]MCHC [Mass/volume] by Automated count32.5-35.6FUniversity Hospitals Geauga Medical CenterMCV Auto (RBC) [Entitic vol]Ordered By: Maricruz Godoy on 03-14-2024 MCV (RBC) [Entitic vol]89.3 fL83.5-101[facility] CenterMCV (RBC) [Entitic vol]MCV [Entitic volume] by Automated count83.5-101[facility] CenterMagnesium [Mass/volume] in Serum or PlasmaOrdered By: Maricruz Godoy on 40-55-3441Ereqiisdm [Mass/Vol]1.8 mg/dLLow1.9-2.7FUniversity Hospitals Geauga Medical CenterMagnesium [Mass/Vol]Magnesium [Mass/volume] in Serum or PlasmaLow1.9-2.7 [facility] CenterMonocytes Auto (Bld) [#/Vol]Ordered By: Maricruz Godoy on 78-25-9220Vsokqqfjh (Bld) [#/Vol]0.9 10*3/uLHigh0.0-0.8[facility] CenterMonocytes (Bld) [#/Vol]Automated blood monocyte countHigh 0.0-0.8[facility] CenterMonocytes/100 WBC Auto (Bld)Ordered By: Maricruz Godoy on 43-87-2860Lzhevfwle/100 WBC (Bld)11.6 %.[facility] CenterMonocytes/100 WBC (Bld)Automated monocyte %.[facility] CenterMucus [Presence] in Urine by AutomatedOrdered By: Maricruz Godoy on 92-84-6942Lpoag Auto Ql (U)Rare [LPF][facility] CenterMucus Auto Ql (U)Mucus [Presence] in Urine by AutomatedKettering Health Behavioral Medical Center Neutrophils Auto (Bld) [#/Vol]Ordered By: Maricruz Godoy on 33-66-5696Uqfszighfpy (Bld) [#/Vol]6.0 10*3/uL1.8-7.7FUniversity Hospitals Geauga Medical CenterNeutrophils (Bld) [#/Vol]Neutrophils [#/volume] in Blood by Automated count1.8-7.7FUniversity Hospitals Geauga Medical CenterNeutrophils/100 WBC Auto (Bld)Ordered By: Maricruz Godoy on 88-99-9415Kmbnccesjmq/100 WBC (Bld)76.4 %.[facility] Neutrophils/100 WBC (Bld)Automated neutrophil %.[facility] CenterNitrite Test strip Ql (U)Ordered By: Maricruz Godoy on 45-77-6977Incntke Ql (U)NegativeNegChillicothe HospitalNitrite Ql (U)Nitrite [Presence] in Urine by Test stripNegChillicothe Hospital Nucleated erythrocytes [Presence] in Blood by Automated countOrdered By: Maricruz Godoy on 32-49-8130Jcsviveok RBC Auto Ql (Bld)0.1 /100{WBC}0-0.5FUniversity Hospitals Geauga Medical CenterNucleated RBC Auto Ql (Bld)Nucleated erythrocytes [Presence] in Blood by Automated count0-0.5FUniversity Hospitals Geauga Medical Center Platelet mean volume Auto (Bld) [Entitic vol]Ordered By: Maricruz Godoy on 10-38-8544Nvhvevre mean volume (Bld) [Entitic vol]8.0 fL6.6-10.1FUniversity Hospitals Geauga Medical CenterPlatelet mean volume (Bld) [Entitic vol]Platelet mean volume [Entitic volume] in Blood by Automated count6.6-10.1FUniversity Hospitals Geauga Medical CenterPlatelets Auto (Bld) [#/Vol]Ordered By: Maricruz Godoy on 03-14-2024 Platelets (Bld) [#/Vol]290 10*3/wH687-128MqywmasawKettering Health Behavioral Medical Center Platelets (Bld) [#/Vol]Platelets [#/volume] in Blood by Automated suvph490-043 [facility] CenterProtein Test strip (U) [Mass/Vol]Ordered By: Maricruz Godoy on 50-60-9128Xguhgto (U) [Mass/Vol]70 mg/dLHighNegChillicothe HospitalProtein (U) [Mass/Vol]Protein [Mass/volume] in Urine by Test stripHighNegChillicothe HospitalRBC Auto (Bld) [#/Vol] Ordered By: Maricruz Godoy on 34-68-6638NRZ (Bld) [#/Vol]3.79 10*6/uLLow3.90-5.60 [facility] CenterRBC (Bld) [#/Vol]Erythrocytes [#/volume] in Blood by Automated countLow3.90-5.60[facility] Hospitalpecific gravity Test strip (U) [Rel density]Ordered By: Maricruz Godoy on 03-14-2024 Specific gravity (U) [Rel density]1.813Ddzm7.001-1.030[facility] Hospitalpecific gravity (U) [Rel density]Specific gravity of Urine by Test strip High1.001-1.030[facility] CenterUrine appearanceOrdered By: Maricruz Godoy on 68-70-2666Ctqdvrjtry (U)ClearClearFUniversity Hospitals Geauga Medical CenterUrine cultureOrdered By: Maricruz Godoy on 89-81-4329Zrtkclae identified Cx Nom (U)Group B Strep (Streptococcus agalactiae)AbnormalKettering Health Behavioral Medical CenterUrobilinogen Test strip (U) [Mass/Vol]Ordered By: Maricruz Godoy on 40-22-7494Uktnviyszwey (U) [Mass/Vol]Normal mg/dLNormOhioHealth Doctors HospitalUrobilinogen (U) [Mass/Vol]Urobilinogen [Mass/volume] in Urine by Test stripNormOhioHealth Doctors HospitalWBC Auto (Bld) [#/Vol]Ordered By: Maricruz Godoy on 88-94-6182EYM (Bld) [#/Vol]7.8 10*3/uL4.1-10.5FUniversity Hospitals Geauga Medical CenterWBC (Bld) [#/Vol]Leukocytes [#/volume] in Blood by Automated count4.1-10.5FUniversity Hospitals Geauga Medical CenterpH Test strip (U)Ordered By: Maricruz Godoy on 33-12-3049bI (U)5.5 [pH]5.0-9.0[facility] CenterpH (U)pH of Urine by Test strip5.0-9.0[facility] Basophils Auto (Bld) [#/Vol]on 16-56-6727Ertvuvkwb (Bld) [#/Vol]0.0 10 3/uL 0.0-0.1FUniversity Hospitals Geauga Medical CenterBasophils (Bld) [#/Vol]Automated basophil count0.0-0.1FUniversity Hospitals Geauga Medical CenterBasophils/100 WBC Auto (Bld)on 49-24-4758Kesjtemvo/100 WBC (Bld)0.5 %0.2-2.0[facility] CenterBasophils/100 WBC (Bld)Automated basophil %0.2-2.0[facility] CenterBuprenorphine [Presence] in Urineon 16-26-7876Kkjbuvdieqpde Ql (U) NegativeNEGATIVEKettering Health Behavioral Medical CenterComment on above:DRUG CLASS TEST SYSTEM CUT-OFF CONCENTRATIONS ARE ASFOLLOWS:AMP (Amphetamine): 500 ng/mLBAR (Barbiturates): 200 ng/mLBZO (Benzodiazepines): 150 ng/mLBUP (Buprenorphine): 10 ng/mLCOC (Cocaine): 150 ng/mLmAMP (Methamphetamine): 500 ng/mLMTD (Methadone): 200 ng/mLOPI (Opiates): 100 ng/mLOXY (Oxycodone): 100 ng/mLPCP (Phencyclidine): 25 ng/mLTHC (Cannabinoids): 50 ng/mLTCA (Trycyclic Antidepressants): 300 ng/mLBuprenorphine Ql (U)Buprenorphine [Presence] in Urine NEGATIVEKettering Health Behavioral Medical CenterComment on above:DRUG CLASS TEST SYSTEM CUT-OFF CONCENTRATIONS ARE ASFOLLOWS:AMP (Amphetamine): 500 ng/mLBAR (Barbitu rates): 200 ng/mLBZO (Benzodiazepines): 150 ng/mLBUP (Buprenorphine): 10 ng/mLCOC (Cocaine): 150 ng/mLmAMP (Methamphetamine): 500 ng/mLMTD (Methadone): 200 ng/mLOPI (Opiates): 100 ng/mLOXY (Oxycodone): 100 ng/mLPCP (Phencyclidine): 25 ng/mLTHC (Cannabinoids): 50 ng/mLTCA (Trycyclic Antidepressants): 300 ng/mL Eosinophils/100 WBC Auto (Bld)on 08-96-2511Gjbmsaanlnj/100 WBC (Bld)1.3 %0.9-7.0 [facility] CenterEosinophils/100 WBC (Bld)Automated eosinophil % 0.9-7.0[facility] CenterErythrocyte distribution width Auto (RBC) [Ratio]on 91-79-0072Cjoqdumtrzc distribution width (RBC) [Ratio]12.8 % 11.0-15.0[facility] CenterErythrocyte distribution width (RBC) [Ratio]Erythrocyte distribution width [Ratio] by Automated count11.0-15.0 [facility] CenterEstimated glomerular filtration rate (GFR) non- Americanon 17-58-4604DOC/1.73 sq M.predicted among non-blacks MDRD (S/P/Bld) [Vol rate/Area]mL/min/{1.73_m2}>=60 mL/min/1.73m 2FUniversity Hospitals Geauga Medical CenterGFR/1.73 sq M.predicted among non-blacks MDRD (S/P/Bld) [Vol rate/Area]Estimated glomerular filtration rate (GFR) non->=60 mL/min/1.73m [address] [place], [place] [address]Globulin Calc (S) [Mass/Vol]on 46-71-4031Mdiegzkh (S) [Mass/Vol]3.6 g/dLKettering Health Behavioral Medical Center Globulin (S) [Mass/Vol]Serum globulin measurement by calculation (mass/volume) [facility] CenterHematocrit Auto (Bld) [Volume fraction]on 55-14-9903Yhsvfkiese (Bld) [Volume fraction]33.4 %Low42.0-54.0[facility] CenterHematocrit (Bld) [Volume fraction]Hematocrit [Volume Fraction] of Blood by Automated omnirOen04.0-54.0[facility] CenterHemoglobin [Mass/volume] in Bloodon 49-24-0030Zvwjuqtpmk (Bld) [Mass/Vol]11.1 g/dLLow 14.0-18.0[facility] CenterHemoglobin (Bld) [Mass/Vol]Hemoglobin [Mass/volume] in XcwihDxu97.0-18.0[facility] CenterINR in Platelet poor plasma by Coagulation assayon 24-70-5558GIJ Coag (PPP) [Relative time]1.07 {INR}[facility] CenterComment on above:DESIRED INR:2.0-3.0 CONDITIONS NOT LISTED BELOW2.5-3.5 FOR PROSTHETIC HEART VALVE REPLACEMENT2.5-3.5 RECURRENT THROMBOSISINR Coag (PPP) [Relative time]INR in Platelet poor plasma by Coagulation assayKettering Health Behavioral Medical Center Comment on above:DESIRED INR:2.0-3.0 CONDITIONS NOT LISTED BELOW2.5-3.5 FOR PROSTHETIC HEART VALVE REPLACEMENT2.5-3.5 RECURRENT THROMBOSISLaboratory - Chemistry and Chemistry - challengeon 84-73-9044Jeidvkq (P) [Moles/Vol]20 umol/L 11-32[facility] CenterAlbumin [Mass/Vol]2.9 g/dLLow3.4-5.0 [facility] CenterALP [Catalytic activity/Vol]85 U/L46-116 [facility] CenterALT [Catalytic activity/Vol]17 U/L16-63 [facility] CenterAST [Catalytic activity/Vol]17 U/L15-37 [facility] CenterBilirubin [Mass/Vol]0.6 mg/dL0.2-1.0[facility] CenterCalcium [Mass/Vol]8.7 mg/dL8.5-10.1FUniversity Hospitals Geauga Medical CenterChloride [Moles/Vol]101 mmol/L14-349YfqlmmuirKettering Health Behavioral Medical CenterCO2 [Moles/Vol]27.1 mmol/L21.0-32.0[facility] Creatinine [Mass/Vol]0.94 mg/dL0.70-1.30[facility] GFR/1.73 sq M.predicted MDRD (S/P/Bld) [Vol rate/Area]mL/min/{1.73_m2}>=60 mL/min/1.73m 2FUniversity Hospitals Geauga Medical CenterGlucose [Mass/Vol]91 mg/wD78-948 [facility] CenterLipase [Catalytic activity/Vol]29.0 U/L 16.0-77.0[facility] CenterMagnesium [Mass/Vol]1.5 mg/dLLow 1.8-2.4FUniversity Hospitals Geauga Medical CenterPotassium [Moles/Vol]3.6 mmol/L3.5-5.1 [facility] CenterProtein [Mass/Vol]6.5 g/dL6.4-8.2FLake County Memorial Hospital - Westodium [Moles/Vol]137 mmol/S240-371HtdnxcgikKettering Health Behavioral Medical CenterUrea nitrogen [Mass/Vol]17.0 mg/dL7.0-18.0[facility] CenterUrea nitrogen/Creatinine [Mass ratio]18.1 mg/mgKettering Health Behavioral Medical CenterLaboratory - Drug toxicologyon 94-03-8184Jvmvbeklvmde Ql (U) NegativeNEGATIVEKettering Health Behavioral Medical CenterBenzodiazepines Ql (U)Negative NEGATIVEKettering Health Behavioral Medical CenterCocaine Ql (U)NegativeNEGATIVEKettering Health Behavioral Medical CenterOpiates Ql (U)PositiveAbnormalNEGATIVEKettering Health Behavioral Medical CenterPhencyclidine Ql (U)NegativeNEGATIVEKettering Health Behavioral Medical CenterLaboratory - Hematology and Cell countson 11-53-2639Jcsrwhci granulocytes/100 WBC (Bld)0.6 %High0.0-0.5FUniversity Hospitals Geauga Medical Center Leukocytes [#/volume] corrected for nucleated erythrocytes in Blood by Automated counon 45-04-0586BWC corrected for nucl RBC Auto (Bld) [#/Vol]8.7 10 3/uL 4.0-11.0[facility] CenterWBC corrected for nucl RBC Auto (Bld) [#/Vol]Leukocytes [#/volume] corrected for nucleated erythrocytes in Blood by Automated coun4.0-11.0[facility] CenterLymphocytes Auto (Bld) [#/Vol]on 81-83-0460Jyyhzdkasei (Bld) [#/Vol]0.8 10 3/uLLow1.2-3.8[facility] CenterLymphocytes (Bld) [#/Vol]Lymphocytes [#/volume] in Blood by Automated countLow1.2-3.8[facility] CenterLymphocytes/100 WBC Auto (Bld)on 90-34-0070Izpuspdmwqn/100 WBC (Bld)8.8 %Low20.5-60.0[facility] CenterLymphocytes/100 WBC (Bld)Lymphocytes/100 leukocytes in Blood by Automated qfmshXyg10.5-60.0[facility] Auto (RBC) [Entitic mass]on 02-32-8480FJF (RBC) [Entitic mass]29.5 pg25.9-34.0 [facility] (RBC) [Entitic mass]MCH [Entitic mass] by Automated count25.9-34.0[facility] Auto (RBC) [Mass/Vol]on 78-61-6206TAHX (RBC) [Mass/Vol]33.2 g/dL29.9-35.2FTriHealth Good Samaritan HospitalHC (RBC) [Mass/Vol]MCHC [Mass/volume] by Automated count 29.9-35.2FUniversity Hospitals Geauga Medical CenterMCV Auto (RBC) [Entitic vol]on 78-27-3372BAW (RBC) [Entitic vol]88.8 fL80.0-94.0[facility] HospitalV (RBC) [Entitic vol]MCV [Entitic volume] by Automated count80.0-94.0 [facility] CenterMethadone [Presence] in Urine by Screen method on 08-38-2209Spfccehbz Screen Ql (U)NegativeNEGATIVEKettering Health Behavioral Medical CenterMethadone Screen Ql (U)Methadone [Presence] in Urine by Screen method NEGATIVEKettering Health Behavioral Medical CenterMonocytes Auto (Bld) [#/Vol]on 44-86-7262Fxxfmanxn (Bld) [#/Vol]1.1 10 3/uLHigh0.3-0.8[facility] CenterMonocytes (Bld) [#/Vol]Automated blood monocyte countHigh0.3-0.8 [facility] CenterMonocytes/100 WBC Auto (Bld)on 03-13-2024 Monocytes/100 WBC (Bld)12.5 %High1.7-12.0[facility] Monocytes/100 WBC (Bld)Automated monocyte %High1.7-12.0[facility] CenterNeutrophils Auto (Bld) [#/Vol]on 10-46-0991Uoaldkdjszt (Bld) [#/Vol]6.6 10 3/uLHigh1.4-6.5FUniversity Hospitals Geauga Medical CenterNeutrophils (Bld) [#/Vol]Neutrophils [#/volume] in Blood by Automated countHigh1.4-6.5FUniversity Hospitals Geauga Medical CenterNeutrophils/100 WBC Auto (Bld)on 03-13-2024 Neutrophils/100 WBC (Bld)76.3 %High43.0-75.0[facility] Neutrophils/100 WBC (Bld)Automated neutrophil %High43.0-75.0[facility] CenterNo Panel Informationon 79-51-1179Nkkty Barbiturates ScreenNegative NEGATIVEKettering Health Behavioral Medical CenterUrine Marijuana (THC) ScreenNegative NEGATIVEKettering Health Behavioral Medical CenterUrine Methamphetamines ScreenNegative NEGATIVEKettering Health Behavioral Medical CenterEosinophils # (Auto)0.1 10 3/uL0.0-0.7 [facility] CenterEthyl Alcohol Level<3 mg/dLKettering Health Behavioral Medical CenterComment on above:NOTE: 80 mg/dl is the legal limit for a blood alcohol levelImmature Granulocyte # (Auto)0.05 10 3/uLHigh0.00-0.03[facility] CenterTroponin I High Sensitivity8.8 pg/mL4.0-76.1FUniversity Hospitals Geauga Medical CenterComment on above:CUT-OFF POINTS HAVE BEEN ESTABLISHED BASED ON THE FOURTHUNIVERSAL DEFINITION OF MYOCARDIAL INFARCTION. THE UPPERREFERENCE LIMIT (URL) OF TROPONIN, DEFINED THE 99THPERCENTILE OF cTnI DISTRIBUTION IN A REFERENCE POPULATION,HAS BEEN CONFIRMED THE DECISION THRESHOLD FOR MIDIAGNOSIS.99TH PERCENTILE = 76.2 PG/MLNOTE: HIGH-SENSITIVITY TROPONIN ASSAY IS NOT INTENDED TO BEUSED IN ISOLATION BUT SHOULD BE INTERPRETED IN CONJUNCTIONWITH OTHER DIAGNOSTIC AND CLINICAL INFORMATION.Platelet mean volume Auto (Bld) [Entitic vol]on 57-79-7954Vluvkcbe mean volume (Bld) [Entitic vol]9.5 fL9.5-13.5FUniversity Hospitals Geauga Medical CenterPlatelet mean volume (Bld) [Entitic vol]Platelet mean volume [Entitic volume] in Blood by Automated count 9.5-13.5FUniversity Hospitals Geauga Medical CenterPlatelets Auto (Bld) [#/Vol]on 42-07-1107Qpmgflnlh (Bld) [#/Vol]300 10 3/bH535-827NpixzdxyiKettering Health Behavioral Medical CenterPlatelets (Bld) [#/Vol]Platelets [#/volume] in Blood by Automated count 150-450[facility] CenterProthrombin time (PT)on 45-12-0353HZ Coag (PPP) [Time]11.3 s9.0-11.6FUniversity Hospitals Geauga Medical CenterPT Coag (PPP) [Time]Prothrombin time (PT)9.0-11.6FUniversity Hospitals Geauga Medical CenterRBC Auto (Bld) [#/Vol]on 49-72-9706PBZ (Bld) [#/Vol]3.76 10 6/uLLow4.70-6.10[facility] CenterRBC (Bld) [#/Vol]Erythrocytes [#/volume] in Blood by Automated countLow4.70-6.10[facility] Hospitalerum or plasma albumin/globulin mass ratioon 57-52-4716Ukvpklr/Globulin [Mass ratio]0.8 {ratio} [facility] CenterAlbumin/Globulin [Mass ratio]Serum or plasma albumin/globulin mass ratioMorrow County Hospitalerum or plasma anion gap determinationon 53-04-2896Zgorj gap [Moles/Vol]12.5 mmol/LFUniversity Hospitals Geauga Medical CenterAnion gap [Moles/Vol]Serum or plasma anion gap determinationKettering Health Behavioral Medical CenterUrine tricyclic antidepressant measurementon 04-67-0102Jxkvebzae antidepressants (U) [Mass/Vol]NegativeNEGATIVE [facility] CenterTricyclic antidepressants (U) [Mass/Vol]Urine tricyclic antidepressant measurementNEGATIVEKettering Health [facility]al Medical Center oxyCODONE+oxyMORphone [Presence] in Urine by Screen methodon 03-13-2024 oxyCODONE+oxyMORphone Screen Ql (U)NegativeNEGATIVEKettering Health Behavioral Medical CenteroxyCODONE+oxyMORphone Screen Ql (U)oxyCODONE+oxyMORphone [Presence] in Urine by Screen methodNEGATIVEKettering Health Behavioral Medical CenterBasophils Auto (Bld) [#/Vol]on 44-47-7385Satwkwtvw (Bld) [#/Vol]0.0 10 3/uL0.0-0.1FUniversity Hospitals Geauga Medical CenterBasophils (Bld) [#/Vol]Automated basophil count0.0-0.1 [facility] CenterBasophils/100 WBC Auto (Bld)on 03-06-2024 Basophils/100 WBC (Bld)0.3 %0.2-2.0[facility] Basophils/100 WBC (Bld)Automated basophil %0.2-2.0[facility] CenterEosinophils/100 WBC Auto (Bld)on 75-95-3857Agrutuagwmg/100 WBC (Bld)1.7 % 0.9-7.0[facility] CenterEosinophils/100 WBC (Bld)Automated eosinophil %0.9-7.0[facility] CenterErythrocyte distribution width Auto (RBC) [Ratio]on 25-99-5086Fblnrztlcfn distribution width (RBC) [Ratio]12.8 %11.0-15.0[facility] CenterErythrocyte distribution width (RBC) [Ratio]Erythrocyte distribution width [Ratio] by Automated count 11.0-15.0[facility] CenterEstimated glomerular filtration rate (GFR) non- Americanon 91-49-2834MHU/1.73 sq M.predicted among non-blacks MDRD (S/P/Bld) [Vol rate/Area]mL/min/{1.73_m2}>=60 mL/min/1.73m [address] [place], [place] [address]GFR/1.73 sq M.predicted among non-blacks MDRD (S/P/Bld) [Vol rate/Area]Estimated glomerular filtration rate (GFR) non- >=60 mL/min/1.[address]m [address] [place], [place] [address]Fibrin D-dimer [Presence] in Platelet poor plasma by Latex agglutinationon 48-19-9336Ydlzgz D-dimer LA Ql (PPP)0.33 mg/L FEU<=0.59[facility] CenterComment on above: Increases in D-Dimer concentration observed withthromboembolic events can be variable due to localization,size, and age of the thrombus. Therefore, a thromboembolicevent cannot be diagnosed with certainty on the basis of thereference range. D-Dimers may also be elevated for a varietyof disorders inc luding advanced age, , coronarydisease, cancer, liver disease, infection, inflammation,hematoma, DIC, trauma, post-surgery, diabetes, thrombolyticor anticoagulant therapy, stress, and generalizedhospitalization. Fibrin D-dimer LA Ql (PPP)Fibrin D-dimer [Presence] in Platelet poor plasma by Latex agglutination<=0.59[facility] CenterComment on above: Increases in D-Dimer concentration observed withthromboembolic events can be variable due to localization,size, and age of the thrombus. Therefore, a thromboembolicevent cannot be diagnosed with certainty on the basis of thereference range. D-Dimers may also be elevated for a varietyof disorders inc luding advanced age, , coronarydisease, cancer, liver disease, infection, inflammation,hematoma, DIC, trauma, post-surgery, diabetes, thrombolyticor anticoagulant therapy, stress, and generalizedhospitalization. Hematocrit Auto (Bld) [Volume fraction]on 70-66-1008Mnrbtlkzal (Bld) [Volume fraction]35.6 %Low42.0-54.0[facility] CenterHematocrit (Bld) [Volume fraction]Hematocrit [Volume Fraction] of Blood by Automated countLow 42.0-54.0[facility] CenterHemoglobin [Mass/volume] in Bloodon 81-51-5524Thayvqemai (Bld) [Mass/Vol]11.7 g/dLLow14.0-18.0[facility] CenterHemoglobin (Bld) [Mass/Vol]Hemoglobin [Mass/volume] in BloodLow 14.0-18.0[facility] CenterLaboratory - Chemistry and Chemistry - challengeon 28-91-0612Andubbe [Mass/Vol]9.4 mg/dL8.5-10.1FUniversity Hospitals Geauga Medical CenterChloride [Moles/Vol]97 mmol/RInk23-128XczlqyerrKettering Health Behavioral Medical CenterCO2 [Moles/Vol]29.5 mmol/L21.0-32.0[facility] Creatinine [Mass/Vol]1.07 mg/dL0.70-1.30[facility] GFR/1.73 sq M.predicted MDRD (S/P/Bld) [Vol rate/Area]mL/min/{1.73_m2}>=60 mL/min/1.73m 2FUniversity Hospitals Geauga Medical CenterGlucose [Mass/Vol]99 mg/tA20-154 [facility] CenterPotassium [Moles/Vol]4.4 mmol/L3.5-5.1FLake County Memorial Hospital - Westodium [Moles/Vol]135 mmol/YHqg140-311OovefoiyqKettering Health Behavioral Medical CenterUrea nitrogen [Mass/Vol]13.0 mg/dL7.0-18.0[facility] CenterUrea nitrogen/Creatinine [Mass ratio]12.1 mg/mgKettering Health Behavioral Medical CenterLaboratory - Hematology and Cell countson 67-38-5915Jlhdjdac granulocytes/100 WBC (Bld)0.7 %High0.0-0.5FUniversity Hospitals Geauga Medical Center Laboratory - Microbiology and Antimicrobial susceptibilityon 03-06-2024 SARS-CoV-2 (COVID-19) RNA HOWIE+probe Ql (Unsp spec)NegativeNEGATIVEKettering Health Behavioral Medical CenterComment on above:This test has not been FDA cleared or approved, but has beenauthorized [...] of the declaration thatcircumstances exist justifying the authoriz ation ofemergency use of in vitro diagnostic tests for detectionand/or diagnosis of Covid-19 under section 564(b)(1) of theAct, 21 U.S.C. 360bbb-3(b)(1), unless the declaration isterminated or authorization is revoked sooner.Leukocytes [#/volume] corrected for nucleated erythrocytes in Blood by Automated counon 75-30-2164RHS corrected for nucl RBC Auto (Bld) [#/Vol]8.9 10 3/uL4.0-11.0 [facility] CenterWBC corrected for nucl RBC Auto (Bld) [#/Vol] Leukocytes [#/volume] corrected for nucleated erythrocytes in Blood by Automated coun4.0-11.0[facility] CenterLymphocytes Auto (Bld) [#/Vol]on 86-15-1230Jizfwqnboph (Bld) [#/Vol]0.8 10 3/uLLow1.2-3.8[facility] CenterLymphocytes (Bld) [#/Vol]Lymphocytes [#/volume] in Blood by Automated countLow1.2-3.8[facility] CenterLymphocytes/100 WBC Auto (Bld)on 22-45-1962Kmljbaszqlv/100 WBC (Bld)8.9 %Low20.5-60.0[facility] CenterLymphocytes/100 WBC (Bld)Lymphocytes/100 leukocytes in Blood by Automated ivmomCdy54.5-60.0[facility]H Auto (RBC) [Entitic mass]on 06-96-2812CCI (RBC) [Entitic mass]29.8 pg25.9-34.0 [facility] HospitalH (RBC) [Entitic mass]MCH [Entitic mass] by Automated count25.9-34.0[facility] HospitalHC Auto (RBC) [Mass/Vol]on 82-00-1904TYBD (RBC) [Mass/Vol]32.9 g/dL29.9-35.2FTriHealth Good Samaritan HospitalHC (RBC) [Mass/Vol]MCHC [Mass/volume] by Automated count 29.9-35.2FUniversity Hospitals Geauga Medical CenterMCV Auto (RBC) [Entitic vol]on 28-11-4598MAX (RBC) [Entitic vol]90.6 fL80.0-94.0[facility] HospitalV (RBC) [Entitic vol]MCV [Entitic volume] by Automated count80.0-94.0 [facility] CenterMonocytes Auto (Bld) [#/Vol]on 03-06-2024 Monocytes (Bld) [#/Vol]1.1 10 3/uLHigh0.3-0.8[facility] Monocytes (Bld) [#/Vol]Automated blood monocyte countHigh0.3-0.8[facility] CenterMonocytes/100 WBC Auto (Bld)on 68-59-8494Ubigucvjp/100 WBC (Bld)12.8 %High1.7-12.0[facility] CenterMonocytes/100 WBC (Bld)Automated monocyte %High1.7-12.0[facility] Neutrophils Auto (Bld) [#/Vol]on 86-67-6234Kupziyvymue (Bld) [#/Vol]6.7 10 3/uL High1.4-6.5FUniversity Hospitals Geauga Medical CenterNeutrophils (Bld) [#/Vol]Neutrophils [#/volume] in Blood by Automated countHigh1.4-6.5FUniversity Hospitals Geauga Medical CenterNeutrophils/100 WBC Auto (Bld)on 90-60-2755Nmlxmhlwcea/100 WBC (Bld)75.6 % High43.0-75.0[facility] CenterNeutrophils/100 WBC (Bld)Automated neutrophil %High43.0-75.0[facility] CenterNo Panel Information on 44-51-1863Izulpxp Influenza Type A AntigenNegativeKettering Health Behavioral Medical CenterComment on above:Negative for Flu A protein antigen. Infection due to Flu Acannot be ruled out. Flu A antigen in thesample may bebelow the detection limit of the test.Bedside Influenza Type B AntigenNegativeK[facility]tering Health Behavioral Medical CenterComment on above:Negative for Flu B protein antigen. Infection due to Flu Bcannot be ruled out. Flu B antigen in thesample may bebelow the detection limit of the test.Eosinophils # (Auto)0.2 10 3/uL0.0-0.7FUniversity Hospitals Geauga Medical CenterImmature Granulocyte # (Auto)0.06 10 3/uLHigh0.00-0.03[facility] CenterTroponin I High Sensitivity5.0 pg/mL4.0-76.1FUniversity Hospitals Geauga Medical CenterComment on above:CUT-OFF POINTS HAVE BEEN ESTABLISHED BASED ON THE FOURTHUNIVERSAL DEFINITION OF MYOCARDIAL INFARCTION. THE UPPERREFERENCE LIMIT (URL) OF TROPONIN, DEFINED THE 99THPERCENTILE OF cTnI DISTRIBUTION IN A REFERENCE POPULATION,HAS BEEN CONFIRMED THE DECISION THRESHOLD FOR MIDIAGNOSIS.99TH PERCENTILE = 76.2 PG/MLNOTE: HIGH-SENSITIVITY TROPONIN ASSAY IS NOT INTENDED TO BEUSED IN ISOLATION BUT SHOULD BE INTERPRETED IN CONJUNCTIONWITH OTHER DIAGNOSTIC AND CLINICAL INFORMATION.Platelet mean volume Auto (Bld) [Entitic vol]on 80-60-1100Olbyhipf mean volume (Bld) [Entitic vol]9.5 fL9.5-13.5FUniversity Hospitals Geauga Medical CenterPlatelet mean volume (Bld) [Entitic vol]Platelet mean volume [Entitic volume] in Blood by Automated count9.5-13.5 [facility] CenterPlatelets Auto (Bld) [#/Vol]on 03-06-2024 Platelets (Bld) [#/Vol]314 10 3/jE634-750EcuetuxyzKettering Health Behavioral Medical Center Platelets (Bld) [#/Vol]Platelets [#/volume] in Blood by Automated vntnu336-416 [facility] CenterRBC Auto (Bld) [#/Vol]on 08-88-1014NFJ (Bld) [#/Vol]3.93 10 6/uLLow4.70-6.10[facility] CenterRBC (Bld) [#/Vol]Erythrocytes [#/volume] in Blood by Automated countLow4.70-6.10[facility] County Hospitalerum or plasma anion gap determinationon 95-47-1282Mjjdz gap [Moles/Vol]12.9 mmol/LFUniversity Hospitals Geauga Medical CenterAnion gap [Moles/Vol]Serum or plasma anion gap determinationKettering Health Behavioral Medical CenterCarbon dioxide, total [Moles/volume] in Serum or PlasmaOrdered By: Shannon Gonzalez on 35-68-9017ZN3 [Moles/Vol]30.2 mmol/L21.0-31.0[facility] CenterCO2 [Moles/Vol]Carbon dioxide, total [Moles/volume] in Serum or Yjjyjq55.0-31.0[facility] CenterChloride [Moles/volume] in Serum or PlasmaOrdered By: Shannon Gonzalez on 68-99-5107Jvohsmmi [Moles/Vol]92 mmol/L Zix74-256OoomiahvgKettering Health Behavioral Medical CenterChloride [Moles/Vol]Chloride [Moles/volume] in Serum or EmvaebPar29-801BqgibdeqoK[facility]tering Health Behavioral Medical Center Potassium [Moles/volume] in Serum or PlasmaOrdered By: Shannon Gonzalez on 64-79-1307Zkrpqpghl [Moles/Vol]3.9 mmol/L3.5-5.1FUniversity Hospitals Geauga Medical CenterComment on above:Hemolysis is present at a level that could interfere with the result.Contact lab if redraw is requiredPotassium [Moles/Vol]Potassium [Moles/volume] in Serum or Plasma3.5-5.1FUniversity Hospitals Geauga Medical CenterComment on above:Hemolysis is present at a level that could interfere with the result.Contact lab if redraw is requiredSerum or plasma anion gap determination Ordered By: Shannon Gonzalez on 74-68-8933Srlpm gap [Moles/Vol]11.7 mmol/L6.0-15.0 [facility] CenterAnion gap [Moles/Vol]Serum or plasma anion gap determination6.0-15.0[facility] Hospitalodium [Moles/volume] in Serum or PlasmaOrdered By: Shannon Gonzalez on 09-43-2977Oknzsh [Moles/Vol]130 mmol/QXzi831-669DnvtvjvmyMorrow County Hospitalodium [Moles/Vol]Sodium [Moles/volume] in Serum or VagglvRfs583-996FixzamnbbK[facility] Health Behavioral Medical Center Calcium [Mass/volume] in Serum or PlasmaOrdered By: Maricruz Godoy on 02-29-2024 Calcium [Mass/Vol]8.6 mg/dL8.6-10.3FUniversity Hospitals Geauga Medical CenterCalcium [Mass/Vol]Calcium [Mass/volume] in Serum or Plasma8.6-10.3FUniversity Hospitals Geauga Medical CenterCreatinine [Mass/volume] in Serum or PlasmaOrdered By: Maricruz Godoy on 49-45-9617Nywldfxdpk [Mass/Vol]0.69 mg/dLLow0.70-1.30[facility] CenterCreatinine [Mass/Vol]Creatinine [Mass/volume] in Serum or Plasma Low0.70-1.30[facility] CenterGlucose [Mass/volume] in Serum or PlasmaOrdered By: Maricruz Godoy on 82-83-3590Zdcrqvr [Mass/Vol]86 mg/iT33-713 [facility] CenterComment on above:ADA recommended reference rangeRandom Glucose Reference Range is dependent on time and content of last meal. Glucose of more than 200 mg/dL in a nonstressed, ambulatory subject supports the diagnosisof Diabetes Mellitus.Glucose [Mass/Vol]Glucose [Mass/volume] in Serum or Jyfwya73-696MxxrvkgyqKettering Health Behavioral Medical CenterComment on above:ADA recommended reference rangeRandom Glucose Reference Range is dependent on time and content of last meal. Glucose of more than 200 mg/dL in a nonstressed, ambulatory subject supports the diagnosisof Diabetes Mellitus. Magnesium [Mass/volume] in Serum or PlasmaOrdered By: Maricruz Godoy on 02-29-2024 Magnesium [Mass/Vol]1.5 mg/dLLow1.9-2.7FUniversity Hospitals Geauga Medical Center Magnesium [Mass/Vol]Magnesium [Mass/volume] in Serum or PlasmaLow1.9-2.7 [facility] CenterNo Panel InformationOrdered By: Maricruz Godoy on 53-25-5349Ghftfqrny GFR (CKD-EPI)> 60.0 mL/MinKettering Health Behavioral Medical Center Pharmacy Creatinine Clearance (Chem95.65[facility] CenterUrea nitrogen [Mass/volume] in Serum or PlasmaOrdered By: Maricruz Godoy on 02-29-2024 Urea nitrogen [Mass/Vol]11 mg/dL12-06[facility] CenterUrea nitrogen [Mass/Vol]Urea nitrogen [Mass/volume] in Serum or Plasma12-06[facility] CenterActivated partial thromboplastin time (aPTT) in platelet poor plasma by coagulation aOrdered By: Sin Mabry on 60-19-2225uPLQ Coag (PPP) [Time]42.4 sHigh25.1-36.5FUniversity Hospitals Geauga Medical CenterComment on above:A hematocrit value greater than 55% may lead to inaccurate results in coagulation testing. Patientshaving hematocrit values >55% require a special collection tube for coagulation studies. Please contact the laboratory at [phone] for redraw instructions.Alanine aminotransferase [Enzymatic activity/volume] in Serum or PlasmaOrdered By: Sin Mabry on 29-17-3954TZT [Catalytic activity/Vol] 10 U/LKettering Health Behavioral Medical CenterALT [Catalytic activity/Vol]Alanine aminotransferase [Enzymatic activity/volume] in Serum or PlasmaKettering Health Behavioral Medical CenterAlbumin [Mass/volume] in Serum or Plasma by Bromocresol green (BCG) dye binding methoOrdered By: Sin Mabry on 23-43-0615Dyafpux BCG dye [Mass/Vol]3.7 g/dL3.5-5.7[facility] CenterAlbumin BCG dye [Mass/Vol]Albumin [Mass/volume] in Serum or Plasma by Bromocresol green (BCG) dye binding metho3.5-5.7FUniversity Hospitals Geauga Medical CenterAlkaline phosphatase [Enzymatic activity/volume] in Serum or PlasmaOrdered By: Sin Mabry on 49-43-7126FBY [Catalytic activity/Vol]71 U/P72-320TqwqsnvhbKettering Health Behavioral Medical CenterALP [Catalytic activity/Vol]Alkaline phosphatase [Enzymatic activity/volume] in Serum or Liesfc66-354LuzvxzcgyKettering Health Behavioral Medical Center Aspartate aminotransferase [Enzymatic activity/volume] in Serum or PlasmaOrdered By: Sin Mabry on 20-86-8104JSE [Catalytic activity/Vol]14 U/O04-46MdohmldbpKettering Health Behavioral Medical CenterAST [Catalytic activity/Vol]Aspartate aminotransferase [Enzymatic activity/volume] in Serum or Tlpjlj57-72RurtlrxsgK[facility]tering Health Behavioral Medical CenterBasophils Auto (Bld) [#/Vol]Ordered By: Sin Mabry on 48-11-3295Sjqacpwef (Bld) [#/Vol]0.0 10*3/uL0.0-0.2FUniversity Hospitals Geauga Medical CenterBasophils (Bld) [#/Vol]Automated basophil count0.0-0.2FUniversity Hospitals Geauga Medical Center Basophils/100 WBC Auto (Bld)Ordered By: Sin Mabry on 29-24-2213Vjazwlyzr/100 WBC (Bld)0.4 %.[facility] CenterBasophils/100 WBC (Bld)Automated basophil %.[facility] CenterBilirubin.direct [Mass/volume] in Serum or PlasmaOrdered By: Sin Mabry on 53-52-0866Nmkxqmeqk.direct [Mass/Vol] 0.20 mg/dLHigh0.03-0.18FUniversity Hospitals Geauga Medical CenterBilirubin.direct [Mass/Vol]Bilirubin.direct [Mass/volume] in Serum or PlasmaHigh0.03-0.18 [facility] CenterBilirubin.total [Mass/volume] in Serum or PlasmaOrdered By: Sin Mabry on 57-04-9403Tnapkgbjf [Mass/Vol]0.5 mg/dL0.3-1.0 [facility] CenterBilirubin [Mass/Vol]Bilirubin.total [Mass/volume] in Serum or Plasma0.3-1.0[facility] CenterCalcium [Mass/volume] in Serum or PlasmaOrdered By: Sin Mabry on 88-24-6991Dnlvmte [Mass/Vol]9.0 mg/dL8.6-10.3FUniversity Hospitals Geauga Medical CenterCarbon dioxide, total [Moles/volume] in Serum or PlasmaOrdered By: Sin Mabry on 86-82-7915EX7 [Moles/Vol]25.1 mmol/L21.0-31.0[facility] CenterChloride [Moles/volume] in Serum or PlasmaOrdered By: Sin Mabry on 82-65-2324Yqdzxwyc [Moles/Vol]96 mmol/DRgn14-176ElrbbmefkKettering Health Behavioral Medical CenterCreatine kinase [Enzymatic activity/volume] in Serum or PlasmaOrdered By: Sin Mabry on 31-84-8467RM [Catalytic activity/Vol]26 U/CFxi65-091CyvjuafciKettering Health Behavioral Medical CenterCK [Catalytic activity/Vol]Creatine kinase [Enzymatic activity/volume] in Serum or UuzjdnVlx91-573KkipszvomKettering Health Behavioral Medical CenterCreatinine [Mass/volume] in Serum or PlasmaOrdered By: Sin Mabry on 00-93-4039Cdxsgrmmds [Mass/Vol]0.77 mg/dL0.70-1.30[facility] CenterEosinophils Auto (Bld) [#/Vol]Ordered By: Sin Mabry on 02-15-7633Rlrkeskdrgq (Bld) [#/Vol]0.1 10*3/uL0.0-0.45[facility] CenterEosinophils (Bld) [#/Vol] Automated eosinophil count0.0-0.45[facility] Eosinophils/100 WBC Auto (Bld)Ordered By: Sin Mabry on 02-28-2024 Eosinophils/100 WBC (Bld)0.9 %.[facility] CenterEosinophils/100 WBC (Bld)Automated eosinophil %.[facility] CenterErythrocyte distribution width Auto (RBC) [Ratio]Ordered By: Sin Mabry on 02-28-2024 Erythrocyte distribution width (RBC) [Ratio]13.8 %12.0-14.8[facility] CenterErythrocyte distribution width (RBC) [Ratio]Erythrocyte distribution width [Ratio] by Automated count12.0-14.8[facility] CenterGlobulin Calc (S) [Mass/Vol]Ordered By: Sin Mabry on 24-44-3014Uqbzlyfj (S) [Mass/Vol]3.2 g/dLKettering Health Behavioral Medical CenterGlobulin (S) [Mass/Vol] Serum globulin measurement by calculation (mass/volume)[facility] CenterGlucose [Mass/volume] in Serum or PlasmaOrdered By: Sin Mabry on 61-42-0893Xbxeoel [Mass/Vol]133 mg/oNTmfc20-866HgofrflsoKettering Health Behavioral Medical CenterComment on above:ADA recommended reference rangeRandom Glucose Reference Range is dependent on time and content of last meal. Glucose of more than 200 mg/dL in a nonstressed, ambulatory subject supports the diagnosisof Diabetes Mellitus.Hematocrit Auto (Bld) [Volume fraction]Ordered By: Sin Mabry on 69-34-0122Bmuudttgzw (Bld) [Volume fraction]36.7 %Low38.8-50.0[facility] CenterHematocrit (Bld) [Volume fraction]Hematocrit [Volume Fraction] of Blood by Automated rfidgAhm54.8-50.0[facility] CenterHemoglobin [Mass/volume] in BloodOrdered By: Sin Mabry on 93-50-7498Blsyrksoih (Bld) [Mass/Vol]12.3 g/dLLow13.0-17.0[facility] CenterHemoglobin (Bld) [Mass/Vol]Hemoglobin [Mass/volume] in UkqhuOag22.0-17.0[facility] CenterINR in Platelet poor plasma by Coagulation assayOrdered By: Sin Mabry on 16-40-8473WIJ Coag (PPP) [Relative time]2.0 {INR}[facility] CenterComment on above:INR Therapeutic Range A) Pre- and Peroperative OAT started two weeks before surgery. NOT HIP SURGERY: 1.5 - 2.5 HIP SURGERY: 2 - 3B) Primary and secondary prevention of venous THROMBOSIS: 2 - 3C) Active venous thrombosis, pulmonary embolismand prevention of recurrent venous thrombosis: 2 - 3D) Prevention of arterial thromboembolismincluding patients with mechanical heart valves: 3 - 4.5INR Coag (PPP) [Relative time]INR in Platelet poor plasma by Coagulation assayKettering Health Behavioral Medical Center Comment on above:INR Therapeutic Range A) Pre- and Peroperative OAT started two weeks before surgery. NOT HIP SURGERY: 1.5 - 2.5 HIP SURGERY: 2 - 3B) Primary and secondary prevention of venous THROMBOSIS: 2 - 3C) Active venous thrombosis, pulmonary embolismand prevention of recurrent venous thrombosis: 2 - 3D) Preve ntion of arterial thromboembolismincluding patients with mechanical heart valves: 3 - 4.5Leukocytes [#/volume] corrected for nucleated erythrocytes in Blood by Automated counOrdered By: Sin Mabry on 29-98-2058GCA corrected for nucl RBC Auto (Bld) [#/Vol]5.9 10*3/uL4.1-10.5FUniversity Hospitals Geauga Medical Center WBC corrected for nucl RBC Auto (Bld) [#/Vol]Leukocytes [#/volume] corrected for nucleated erythrocytes in Blood by Automated coun4.1-10.5FUniversity Hospitals Geauga Medical CenterLymphocytes Auto (Bld) [#/Vol]Ordered By: Sin Mabry on 71-86-7979Pnltvefncfe (Bld) [#/Vol]0.6 10*3/uLLow1.00-4.8[facility] CenterLymphocytes (Bld) [#/Vol]Lymphocytes [#/volume] in Blood by Automated countLow1.00-4.8[facility] CenterLymphocytes/100 WBC Auto (Bld)Ordered By: Sin Mabry on 37-02-1145Xwiianuznwy/100 WBC (Bld)9.9 %. [facility] CenterLymphocytes/100 WBC (Bld)Lymphocytes/100 leukocytes in Blood by Automated count.[facility] Auto (RBC) [Entitic mass]Ordered By: Sin Mabry on 99-32-6437HBP (RBC) [Entitic mass]30.2 pg27.5-35.2FFostoria City Hospital (RBC) [Entitic mass] MCH [Entitic mass] by Automated count27.5-35.2FUniversity Hospitals Geauga Medical Center MCHC Auto (RBC) [Mass/Vol]Ordered By: Sin Mabry on 77-83-4122RCBH (RBC) [Mass/Vol]33.7 g/dL32.5-35.6FUniversity Hospitals Geauga Medical CenterMCHC (RBC) [Mass/Vol]MCHC [Mass/volume] by Automated count32.5-35.6FUniversity Hospitals Geauga Medical CenterMCV Auto (RBC) [Entitic vol]Ordered By: Sin Mabry on 02-28-2024 MCV (RBC) [Entitic vol]89.6 fL83.5-101[facility] CenterMCV (RBC) [Entitic vol]MCV [Entitic volume] by Automated count83.5-101[facility] CenterMonocyte distribution width [Entitic volume] in Blood by Automated Ordered By: Sin Mabry on 14-36-8409Drbnimqu distribution width Auto (Bld) [Entitic vol]19.63 %0.00-20.00[facility] CenterMonocyte distribution width Auto (Bld) [Entitic vol]Monocyte distribution width [Entitic volume] in Blood by Automated0.00-20.00[facility] Monocytes Auto (Bld) [#/Vol]Ordered By: Sin Mabry on 83-07-0314Eudxoqywd (Bld) [#/Vol]0.6 10*3/uL0.0-0.8[facility] CenterMonocytes (Bld) [#/Vol]Automated blood monocyte count0.0-0.8[facility] Monocytes/100 WBC Auto (Bld)Ordered By: Sin Mabry on 39-85-0458Rebjeryze/100 WBC (Bld)10.0 %.[facility] CenterMonocytes/100 WBC (Bld) Automated monocyte %.[facility] CenterNatriuretic peptide B [Mass/Vol]Ordered By: Sin Mabry on 54-59-4420Nzcmtvimzdw peptide B (Bld) [Mass/Vol]614.0 pg/mLHigh5-100[facility] CenterNatriuretic peptide B (Bld) [Mass/Vol]BNP ser/plasHigh5-100[facility] Neutrophils Auto (Bld) [#/Vol]Ordered By: Sin Mabry on 74-22-2485Xebfhvqwuiv (Bld) [#/Vol]4.6 10*3/uL1.8-7.7FUniversity Hospitals Geauga Medical CenterNeutrophils (Bld) [#/Vol]Neutrophils [#/volume] in Blood by Automated count1.8-7.7FUniversity Hospitals Geauga Medical CenterNeutrophils/100 WBC Auto (Bld)Ordered By: Sin Mabry on 64-98-2806Xflstvesqhk/100 WBC (Bld)78.8 %.[facility] Neutrophils/100 WBC (Bld)Automated neutrophil %.[facility] CenterNo Panel InformationOrdered By: Sin Mabry on 22-31-4987Ubwkwdcos GFR (CKD-EPI)> 60.0 mL/MinKettering Health Behavioral Medical CenterPharmacy Creatinine Clearance (Chem95.65[facility] CenterNucleated erythrocytes [Presence] in Blood by Automated countOrdered By: Sin Mabry on 02-28-2024 Nucleated RBC Auto Ql (Bld)0.1 /100{WBC}0-0.5FUniversity Hospitals Geauga Medical Center Nucleated RBC Auto Ql (Bld)Nucleated erythrocytes [Presence] in Blood by Automated count0-0.5FUniversity Hospitals Geauga Medical CenterPlatelet mean volume Auto (Bld) [Entitic vol]Ordered By: Sin Mabry on 04-18-0831Jqdftwjt mean volume (Bld) [Entitic vol]8.4 fL6.6-10.1FUniversity Hospitals Geauga Medical CenterPlatelet mean volume (Bld) [Entitic vol]Platelet mean volume [Entitic volume] in Blood by Automated count6.6-10.1FUniversity Hospitals Geauga Medical CenterPlatelets Auto (Bld) [#/Vol]Ordered By: Sin Mabry on 81-36-1505Qvdvkrame (Bld) [#/Vol]238 10*3/uL 150-450[facility] Medical CenterPlatelets (Bld) [#/Vol]Platelets [#/volume] in Blood by Automated -027OmucsgvcaKettering Health Behavioral Medical Center Potassium [Moles/volume] in Serum or PlasmaOrdered By: Sin Mabry on 02-28-2024 Potassium [Moles/Vol]3.9 mmol/L3.5-5.1FUniversity Hospitals Geauga Medical CenterProtein [Mass/volume] in Serum or PlasmaOrdered By: Sin Mabry on 87-51-1096Kmufkwh [Mass/Vol]6.9 g/dL6.4-8.9[facility] CenterProtein [Mass/Vol] Protein [Mass/volume] in Serum or Plasma6.4-8.9[facility] Prothrombin time (PT)Ordered By: Sin Mabry on 33-20-7843VK Coag (PPP) [Time] 22.4 sHigh9.0-12.9[facility] CenterComment on above:A hematocrit value greater than 55% may lead to inaccurate results in coagulation testing. Patientshaving hematocrit values >55% require a special collection tube for coagulation studies. Please contact the laboratory at [phone] for redraw instructions.PT Coag (PPP) [Time]Prothrombin time (PT)High9.0-12.9[facility] CenterComment on above:A hematocrit value greater than 55% may lead to inaccurate results in coagulation testing. Patientshaving hematocrit values >55% require a special collection tube for coagulation studies. Please c ontact the laboratory at [phone] for redraw instructions.RBC Auto (Bld) [#/Vol]Ordered By: Sin Mabry on 89-94-8818PAM (Bld) [#/Vol]4.09 10*6/uL 3.90-5.60[facility] Medical CenterRBC (Bld) [#/Vol]Erythrocytes [#/volume] in Blood by Automated count3.90-5.60[facility] Serum or plasma albumin/globulin mass ratioOrdered By: Sin Mabry on 02-28-2024 Albumin/Globulin [Mass ratio]1.2 {ratio}[facility] Albumin/Globulin [Mass ratio]Serum or plasma albumin/globulin mass ratio [facility] Hospitalerum or plasma anion gap determinationOrdered By: Sin Mabry on 58-11-9463Kssvj gap [Moles/Vol]10.8 mmol/L6.0-15.0[facility] Hospitalerum or plasma non-glucuronidated bilirubin measurement (mass/volume)Ordered By: Sin Mabry on 68-77-9565Yqwkuyppm.indirect [Mass/Vol] 0.3 mg/dLKettering Health Behavioral Medical CenterBilirubin.indirect [Mass/Vol]Serum or plasma non-glucuronidated bilirubin measurement (mass/volume)[facility] Hospitalodium [Moles/volume] in Serum or PlasmaOrdered By: Sin Mabry on 32-83-9463Ctelrj [Moles/Vol]128 mmol/GSyf329-815AzvbmewqwKettering Health Behavioral Medical CenterTroponin I.cardiac [Mass/volume] in Serum or Plasma by Detection limit <= 0.01 ng/Ordered By: Sin Mabry on 93-69-1171Wmhbdpct I.cardiac DL <= 0.01 ng/mL [Mass/Vol]4.9 pg/mL0.0-20.0[facility] CenterTroponin I.cardiac DL <= 0.01 ng/mL [Mass/Vol]Troponin I.cardiac [Mass/volume] in Serum or Plasma by Detection limit <= 0.01 ng/0.0-20.0[facility] CenterUrea nitrogen [Mass/volume] in Serum or PlasmaOrdered By: Sin Mabry on 02-28-2024 Urea nitrogen [Mass/Vol]11 mg/dL7-25[facility] CenterWBC Auto (Bld) [#/Vol]Ordered By: Sin Mabry on 89-19-5521TCL (Bld) [#/Vol]5.9 10*3/uL 4.1-10.5FUniversity Hospitals Geauga Medical CenterWBC (Bld) [#/Vol]Leukocytes [#/volume] in Blood by Automated count4.1-10.5FUniversity Hospitals Geauga Medical CenteraPTT in Platelet poor plasma by Coagulation assayOrdered By: Sin Mabry on 02-28-2024 aPTT Coag (PPP) [Time]Activated partial thromboplastin time (aPTT) in platelet poor plasma by coagulation aHi25.1-36.5FUniversity Hospitals Geauga Medical Center Comment on above:A hematocrit value greater than 55% may lead to inaccurate results in coagulation testing. Patientshaving hematocrit values >55% require a special collection tube for coagulation studies. Please contact the laboratory at [phone] for redraw instructions.Basophils Auto (Bld) [#/Vol]Ordered By: Rubin Billy on 01-38-7716Ggpvdpzjy (Bld) [#/Vol]0.0 10*3/uL0.0-0.2FUniversity Hospitals Geauga Medical CenterBasophils (Bld) [#/Vol]Automated basophil count0.0-0.2 [facility] CenterBasophils/100 WBC Auto (Bld)Ordered By: Rubin Billy on 12-35-7538Pizennaaj/100 WBC (Bld)0.2 %.[facility] CenterBasophils/100 WBC (Bld)Automated basophil %.[facility] CenterCalcium [Mass/volume] in Serum or PlasmaOrdered By: Rubin Billy on 93-87-9290Nvzadhq [Mass/Vol]8.7 mg/dL8.6-10.3FUniversity Hospitals Geauga Medical Center Calcium [Mass/Vol]Calcium [Mass/volume] in Serum or Plasma8.6-10.3FUniversity Hospitals Geauga Medical CenterCarbon dioxide, total [Moles/volume] in Serum or Plasma Ordered By: Rubin Billy on 70-60-6464MJ1 [Moles/Vol]29.9 mmol/L21.0-31.0 [facility] CenterCO2 [Moles/Vol]Carbon dioxide, total [Moles/volume] in Serum or Zrlcpi15.0-31.0[facility] Chloride [Moles/volume] in Serum or PlasmaOrdered By: Rubin Billy on 55-25-3416Lyqmkgbs [Moles/Vol]100 mmol/N99-111HglsjmkxkKettering Health Behavioral Medical Center Chloride [Moles/Vol]Chloride [Moles/volume] in Serum or Jcxhff61-688FerugrfdqKettering Health Behavioral Medical CenterCreatinine [Mass/volume] in Serum or PlasmaOrdered By: Rubin Billy on 12-73-4009Qgqaiyuwvx [Mass/Vol]0.88 mg/dL0.70-1.30[facility] CenterCreatinine [Mass/Vol]Creatinine [Mass/volume] in Serum or Plasma0.70-1.30[facility] CenterEosinophils Auto (Bld) [#/Vol] Ordered By: Rubin Billy on 83-69-9206Pfwcxtnzxvp (Bld) [#/Vol]0.1 10*3/uL 0.0-0.45[facility] CenterEosinophils (Bld) [#/Vol]Automated eosinophil count0.0-0.45[facility] CenterEosinophils/100 WBC Auto (Bld)Ordered By: Rubin Billy on 03-06-7559Hydwoyeuqim/100 WBC (Bld)1.2 %.[facility] CenterEosinophils/100 WBC (Bld)Automated eosinophil %.[facility] CenterErythrocyte distribution width Auto (RBC) [Ratio]Ordered By: Rubin Billy on 03-56-8893Xbsljcoudaf distribution width (RBC) [Ratio]14.1 %12.0-14.8[facility] Erythrocyte distribution width (RBC) [Ratio]Erythrocyte distribution width [Ratio] by Automated count12.0-14.8[facility] CenterGlucose [Mass/volume] in Serum or PlasmaOrdered By: Rubin Billy on 02-04-2024 Glucose [Mass/Vol]83 mg/bR73-663AjkzqwdshKettering Health Behavioral Medical CenterComment on above:ADA recommended reference rangeRandom Glucose Reference Range is dependent on time and content of last meal. Glucose of more than 200 mg/dL in a nonstressed, ambulatory subject supports the diagnosisof Diabetes Mellitus. Glucose [Mass/Vol]Glucose [Mass/volume] in Serum or Sotrut85-183UpnwkfwphKettering Health Behavioral Medical CenterComment on above:ADA recommended reference rangeRandom Glucose Reference Range is dependent on time and content of last meal. Glucose of more than 200 mg/dL in a nonstressed, ambulatory subject supports the diagnosisof Diabetes Mellitus.Hematocrit Auto (Bld) [Volume fraction]Ordered By: Rubin Billy on 83-63-1335Sjlfukkjbp (Bld) [Volume fraction]34.0 %Low 38.8-50.0[facility] CenterHematocrit (Bld) [Volume fraction] Hematocrit [Volume Fraction] of Blood by Automated fsqifIhx81.8-50.0[facility] CenterHemoglobin [Mass/volume] in BloodOrdered By: Rubin Billy on 13-51-7286Agcczpgdbs (Bld) [Mass/Vol]11.4 g/dLLow13.0-17.0[facility] CenterHemoglobin (Bld) [Mass/Vol]Hemoglobin [Mass/volume] in IovftGzb76.0-17.0[facility] CenterLeukocytes [#/volume] corrected for nucleated erythrocytes in Blood by Automated counOrdered By: Rubin Billy on 31-10-9886WXK corrected for nucl RBC Auto (Bld) [#/Vol]7.7 10*3/uL4.1-10.5FUniversity Hospitals Geauga Medical CenterWBC corrected for nucl RBC Auto (Bld) [#/Vol]Leukocytes [#/volume] corrected for nucleated erythrocytes in Blood by Automated coun4.1-10.5FUniversity Hospitals Geauga Medical CenterLymphocytes Auto (Bld) [#/Vol]Ordered By: Rbuin Billy on 79-14-4504Uqrkmmhmpsw (Bld) [#/Vol] 1.1 10*3/uL1.00-4.8[facility] CenterLymphocytes (Bld) [#/Vol] Lymphocytes [#/volume] in Blood by Automated count1.00-4.8[facility] CenterLymphocytes/100 WBC Auto (Bld)Ordered By: Rubin Billy on 39-33-4147Gkmfvhjhqqc/100 WBC (Bld)13.6 %.[facility] Lymphocytes/100 WBC (Bld)Lymphocytes/100 leukocytes in Blood by Automated count. [facility] Auto (RBC) [Entitic mass]Ordered By: Rubin Billy on 40-95-6070MSP (RBC) [Entitic mass]30.6 pg27.5-35.2FFostoria City Hospital (RBC) [Entitic mass]MCH [Entitic mass] by Automated count27.5-35.2FTriHealth Good Samaritan HospitalHC Auto (RBC) [Mass/Vol]Ordered By: Rubin Billy on 89-41-4033XFOJ (RBC) [Mass/Vol]33.7 g/dL32.5-35.6 [facility] HospitalHC (RBC) [Mass/Vol]MCHC [Mass/volume] by Automated count32.5-35.6FUniversity Hospitals Geauga Medical CenterMCV Auto (RBC) [Entitic vol]Ordered By: Rubin Billy on 27-50-5812RFU (RBC) [Entitic vol]90.8 fL 83.5-101[facility] HospitalV (RBC) [Entitic vol]MCV [Entitic volume] by Automated count83.5-101[facility] CenterMonocytes Auto (Bld) [#/Vol]Ordered By: Rubin Billy on 85-87-6984Mbvvvzhie (Bld) [#/Vol]1.0 10*3/uLHigh0.0-0.8[facility] CenterMonocytes (Bld) [#/Vol]Automated blood monocyte countHigh0.0-0.8[facility] CenterMonocytes/100 WBC Auto (Bld)Ordered By: Rubin Billy on 02-04-2024 Monocytes/100 WBC (Bld)12.9 %.[facility] CenterMonocytes/100 WBC (Bld)Automated monocyte %.[facility] CenterNeutrophils Auto (Bld) [#/Vol]Ordered By: Rubin Billy on 59-56-6496Czzcfyrfctn (Bld) [#/Vol] 5.6 10*3/uL1.8-7.7FUniversity Hospitals Geauga Medical CenterNeutrophils (Bld) [#/Vol] Neutrophils [#/volume] in Blood by Automated count1.8-7.7FUniversity Hospitals Geauga Medical CenterNeutrophils/100 WBC Auto (Bld)Ordered By: Rubin Billy on 83-74-2361Hafxjprjhhq/100 WBC (Bld)72.1 %.[facility] Neutrophils/100 WBC (Bld)Automated neutrophil %.[facility] CenterNo Panel InformationOrdered By: Rubin Billy on 41-10-2528Aotcszydb GFR (CKD-EPI)> 60.0 mL/MinKettering Health Behavioral Medical CenterPharmacy Creatinine Clearance (Chem86.96[facility] CenterNucleated erythrocytes [Presence] in Blood by Automated countOrdered By: Rubin Billy on 02-04-2024 Nucleated RBC Auto Ql (Bld)0.1 /100{WBC}0-0.5FUniversity Hospitals Geauga Medical Center Nucleated RBC Auto Ql (Bld)Nucleated erythrocytes [Presence] in Blood by Automated count0-0.5FUniversity Hospitals Geauga Medical CenterPlatelet mean volume Auto (Bld) [Entitic vol]Ordered By: Rubin Billy on 07-10-5379Dikzxefr mean volume (Bld) [Entitic vol]7.8 fL6.6-10.1FUniversity Hospitals Geauga Medical Center Platelet mean volume (Bld) [Entitic vol]Platelet mean volume [Entitic volume] in Blood by Automated count6.6-10.1FUniversity Hospitals Geauga Medical CenterPlatelets Auto (Bld) [#/Vol]Ordered By: Rubin Billy on 94-73-0764Ppodzuwul (Bld) [#/Vol] 246 10*3/zL072-547VxxhoiyruKettering Health Behavioral Medical CenterPlatelets (Bld) [#/Vol] Platelets [#/volume] in Blood by Automated -587NevrplqmcKettering Health Behavioral Medical CenterPotassium [Moles/volume] in Serum or PlasmaOrdered By: Rubin Billy on 56-22-0210Icfsinuiv [Moles/Vol]4.4 mmol/L3.5-5.1FUniversity Hospitals Geauga Medical CenterPotassium [Moles/Vol]Potassium [Moles/volume] in Serum or Plasma 3.5-5.1FUniversity Hospitals Geauga Medical CenterRBC Auto (Bld) [#/Vol]Ordered By: Rubin Billy on 22-60-7474SRL (Bld) [#/Vol]3.74 10*6/uLLow3.90-5.60[facility] Medical CenterRBC (Bld) [#/Vol]Erythrocytes [#/volume] in Blood by Automated countLow3.90-5.60[facility] Hospitalerum or plasma anion gap determinationOrdered By: Rubin Billy on 78-89-7000Ualir gap [Moles/Vol]7.5 mmol/L6.0-15.0[facility] CenterAnion gap [Moles/Vol]Serum or plasma anion gap determination6.0-15.0[facility] Hospitalodium [Moles/volume] in Serum or PlasmaOrdered By: Rubin Billy on 89-09-2180Zwptkc [Moles/Vol]133 mmol/WYho194-996McttmajjnMorrow County Hospitalodium [Moles/Vol]Sodium [Moles/volume] in Serum or PlasmaLow 136-145[facility] CenterUrea nitrogen [Mass/volume] in Serum or PlasmaOrdered By: Rubin Billy on 65-09-2300Waxn nitrogen [Mass/Vol]22 mg/dL 12-06[facility] Medical CenterUrea nitrogen [Mass/Vol]Urea nitrogen [Mass/volume] in Serum or Plasma12-06[facility] CenterWBC Auto (Bld) [#/Vol]Ordered By: Rubin Billy on 36-39-5820ZER (Bld) [#/Vol]7.7 10*3/uL4.1-10.5FUniversity Hospitals Geauga Medical CenterWBC (Bld) [#/Vol]Leukocytes [#/volume] in Blood by Automated count4.1-10.5FUniversity Hospitals Geauga Medical Center Activated partial thromboplastin time (aPTT) in platelet poor plasma by coagulation aOrdered By: Rubin Billy on 27-79-4260mXYX Coag (PPP) [Time] 30.2 s25.1-36.5FUniversity Hospitals Geauga Medical CenterComment on above:A hematocrit value greater than 55% may lead to inaccurate results in coagulation testing. Patientshaving hematocrit values >55% require a special collection tube for coagulation studies. Please contact the laboratory at [phone] for redraw instructions.Alanine aminotransferase [Enzymatic activity/volume] in Serum or PlasmaOrdered By: Rubin Billy on 14-87-3935AGL [Catalytic activity/Vol]7 U/LKettering Health Behavioral Medical CenterALT [Catalytic activity/Vol]Alanine aminotransferase [Enzymatic activity/volume] in Serum or PlasmaKettering Health Behavioral Medical CenterAlbumin [Mass/volume] in Serum or Plasma by Bromocresol green (BCG) dye binding methoOrdered By: Rubin Billy on 31-14-8003Xkmaqgv BCG dye [Mass/Vol]3.6 g/dL3.5-5.7FUniversity Hospitals Geauga Medical CenterAlbumin BCG dye [Mass/Vol]Albumin [Mass/volume] in Serum or Plasma by Bromocresol green (BCG) dye binding metho3.5-5.7FUniversity Hospitals Geauga Medical CenterAlkaline phosphatase [Enzymatic activity/volume] in Serum or PlasmaOrdered By: Rubin Billy on 32-86-8771JMD [Catalytic activity/Vol]62 U/S87-222PpcypwfumKettering Health Behavioral Medical CenterALP [Catalytic activity/Vol]Alkaline phosphatase [Enzymatic activity/volume] in Serum or Zzyfzi32-574ZilgjbuctKettering Health Behavioral Medical CenterAspartate aminotransferase [Enzymatic activity/volume] in Serum or Plasma Ordered By: Rubin Billy on 77-11-9765HVJ [Catalytic activity/Vol]10 U/LLow [address]AST [Catalytic activity/Vol]Aspartate aminotransferase [Enzymatic activity/volume] in Serum or SfchzeEnl76-24GibttnhohKettering Health Behavioral Medical CenterBilirubin.direct [Mass/volume] in Serum or PlasmaOrdered By: Rubin Billy on 49-12-5065Aqncsyaly.direct [Mass/Vol]0.10 mg/dL0.03-0.18 [facility] CenterBilirubin.direct [Mass/Vol]Bilirubin.direct [Mass/volume] in Serum or Plasma0.03-0.18FUniversity Hospitals Geauga Medical Center Bilirubin.total [Mass/volume] in Serum or PlasmaOrdered By: Rubin Billy on 30-80-3335Yrwejhszk [Mass/Vol]0.6 mg/dL0.3-1.0[facility] Bilirubin [Mass/Vol]Bilirubin.total [Mass/volume] in Serum or Plasma0.3-1.0 [facility] CenterBlood estimated average glucose determination by estimation from glycated hemoglobinOrdered By: Rubin Billy on 02-03-2024 Average glucose Estimated from glycated hemoglobin (Bld) [Mass/Vol]Glucose mean value [Mass/volume] in Blood Estimated from glycated hemoglobinKettering Health Behavioral Medical CenterCholesterol [Mass/volume] in Serum or PlasmaOrdered By: Rubin Billy on 25-80-8613Ktqvzujykwz [Mass/Vol]144 mg/pG256-471TttlecjqrKettering Health Behavioral Medical CenterComment on above:Chol less than 200 mg/dl low riskChol 201-239 mg/dl borderline riskChol 240 mg/dl and greater high riskCholesterol [Mass/Vol]Cholesterol [Mass/volume] in Serum or Tianmr201-913JtwjdvhmxKettering Health Behavioral Medical CenterComment on above:Chol less than 200 mg/dl low riskChol 201-239 mg/dl borderline riskChol 240 mg/dl and greater high riskCholesterol in HDL [Mass/volume] in Serum or PlasmaOrdered By: Rubin Billy on 02-03-2024 Cholesterol in HDL [Mass/Vol]Serum or plasma high density lipoprotein (HDL) cholesterol zylmgbohmkv38-23FmjpypsccKettering Health Behavioral Medical CenterComment on above: HDL CHOL ATP-III CLASSIFICATION Cardiovascular RiskHDL > or equal to 60 mg/dL LOWHDL < 40 mg/dL HIGHCholesterol in LDL Calc [Mass/Vol]Ordered By: Rubin Billy on 42-85-8665Jhnohdahaxq in LDL [Mass/Vol]64 mg/dL0-100[facility] CenterComment on above:LDL ATP III CLASSIFICATIONLDL less than 100 mg/dL OptimalLDL 100-129 mg/dL Near or above fezudbdNCA830-141 mg/dL Borderline highLDL 160-189 mg/dL HighLDL greater than 189 mg/dL Very high Cholesterol in LDL [Mass/Vol]Cholesterol in LDL [Mass/volume] in Serum or Plasma by calculation0[facility] CenterComment on above:LDL ATP III CLASSIFICATIONLDL less than 100 mg/dL OptimalLDL 100-129 mg/dL Near or above jiimrasUQB097-366 mg/dL Borderline highLDL 160-189 mg/dL HighLDL greater than 189 mg/dL Very highCholesterol in VLDL Calc [Mass/Vol]Ordered By: Rubin Billy on 91-92-0984Ketpezfchkv in VLDL [Mass/Vol]7 mg/dLKettering Health Behavioral Medical CenterCholesterol in VLDL [Mass/Vol]Cholesterol in VLDL [Mass/volume] in Serum or Plasma by calculationKettering Health Behavioral Medical CenterGlobulin Calc (S) [Mass/Vol]Ordered By: Rubin Billy on 67-44-5623Idvtsjrw (S) [Mass/Vol] 2.6 g/dLKettering Health Behavioral Medical CenterGlobulin (S) [Mass/Vol]Serum globulin measurement by calculation (mass/volume)[facility] CenterGlucose mean value [Mass/volume] in Blood Estimated from glycated hemoglobinOrdered By: Rubin Billy on 76-00-6615Zsitttt glucose Estimated from glycated hemoglobin (Bld) [Mass/Vol]108 mg/dLKettering Health Behavioral Medical CenterHemoglobin A1c percentageOrdered By: Rubin Billy on 65-37-8574OiZ1j (Bld) [Mass fraction]5.4 %4.3-5.6FUniversity Hospitals Geauga Medical CenterComment on above:Increased risk for diabetes: 5.7 - 6.4diabetes: >6.4glycemic control for adults with diabetes: <7.0Hemoglobin A1c/Hemoglobin.total in BloodOrdered By: Rubin Billy on 67-81-2351PbA3h (Bld) [Mass fraction]Hemoglobin A1c percentage 4.3-5.6FUniversity Hospitals Geauga Medical CenterComment on above:Increased risk for diabetes: 5.7 - 6.4diabetes: >6.4glycemic control for adults with diabetes: &l t;7.0INR in Platelet poor plasma by Coagulation assayOrdered By: Rubin Billy on 41-17-9173TAN Coag (PPP) [Relative time]1.0 {INR}[facility] Medical CenterComment on above:INR Therapeutic Range A) Pre- and Peroperative OAT started two weeks before surgery. NOT HIP SURGERY: 1.5 - 2.5 HIP SURGERY: 2 - 3B) Primary and secondary prevention of venous THROMBOSIS: 2 - 3C) Active venous thrombosis, pulmonary embolismand prevention of recurrent venous thrombosis: 2 - 3D) Prevention of arterial thromboembolismincluding patients with mechanical heart valves: 3 - 4.5INR Coag (PPP) [Relative time]INR in Platelet poor plasma by Coagulation assayKettering Health Behavioral Medical Center Comment on above:INR Therapeutic Range A) Pre- and Peroperative OAT started two weeks before surgery. NOT HIP SURGERY: 1.5 - 2.5 HIP SURGERY: 2 - 3B) Primary and secondary prevention of venous THROMBOSIS: 2 - 3C) Active venous thrombosis, pulmonary embolismand prevention of recurrent venous thrombosis: 2 - 3D) Preve ntion of arterial thromboembolismincluding patients with mechanical heart valves: 3 - 4.5Magnesium [Mass/volume] in Serum or PlasmaOrdered By: Rubin Billy on 53-14-3221Bbdmclohi [Mass/Vol]1.9 mg/dL1.9-2.7FUniversity Hospitals Geauga Medical CenterMagnesium [Mass/Vol]Magnesium [Mass/volume] in Serum or Plasma 1.9-2.7FUniversity Hospitals Geauga Medical CenterNatriuretic peptide B [Mass/Vol]Ordered By: Silvano Reed on 53-97-9811Eohlldzncie peptide B (Bld) [Mass/Vol] 239.0 pg/mLHigh5-100[facility] CenterNatriuretic peptide B (Bld) [Mass/Vol]BNP ser/plasHigh5-100[facility] CenterProtein [Mass/volume] in Serum or PlasmaOrdered By: Rubin Billy on 02-03-2024 Protein [Mass/Vol]6.2 g/dLLow6.4-8.9[facility] CenterProtein [Mass/Vol]Protein [Mass/volume] in Serum or PlasmaLow6.4-8.9[facility] CenterProthrombin time (PT)Ordered By: Rubin Billy on 86-50-8827JE Coag (PPP) [Time]11.7 s9.0-12.9[facility] CenterComment on above:A hematocrit value greater than 55% may lead to inaccurate results in coagulation testing. Patientshaving hematocrit values >55% require a special collection tube for coagulation studies. Please contact the laboratory at [phone] for redraw instructions.PT Coag (PPP) [Time]Prothrombin time (PT) 9.0-12.9[facility] CenterComment on above:A hematocrit value greater than 55% may lead to inaccurate results in coagulation testing. Patients having hematocrit values >55% require a special collection tube for coagulation studies. Please contact the laboratory at [phone] for redraw instructions. Serum or plasma albumin/globulin mass ratioOrdered By: Rubin Billy on 70-68-0550Xzwrwkc/Globulin [Mass ratio]1.4 {ratio}[facility] CenterAlbumin/Globulin [Mass ratio]Serum or plasma albumin/globulin mass ratio [facility] Hospitalerum or plasma high density lipoprotein (HDL) cholesterol measurementOrdered By: Rubin Billy on 39-26-7315Xwohwwkabot in HDL [Mass/Vol]73 mg/mH21-35IgbfmcxnqKettering Health Behavioral Medical CenterComment on above:HDL CHOL ATP-III CLASSIFICATION Cardiovascular RiskHDL > or equal to 60 mg/dL LOWHDL < 40 mg/dL HIGHSerum or plasma non-glucuronidated bilirubin measurement (mass/volume)Ordered By: Rubin Billy on 59-52-9136Kngihsvab.indirect [Mass/Vol]0.5 mg/dLKettering Health Behavioral Medical CenterBilirubin.indirect [Mass/Vol]Serum or plasma non-glucuronidated bilirubin measurement (mass/volume) [facility] Hospitalerum or plasma total cholesterol/high density lipoprotein (HDL) cholesterol mass ratOrdered By: Rubin Billy on 02-03-2024 Cholesterol.total/Cholesterol in HDL [Mass ratio]2.0 {ratio}<5.0[facility] CenterCholesterol.total/Cholesterol in HDL [Mass ratio]Serum or plasma total cholesterol/high density lipoprotein (HDL) cholesterol mass rat<5.0 [facility] CenterTriglyceride [Mass/volume] in Serum or Plasma Ordered By: Rubin Billy on 95-94-8021Jesfzpzanguy [Mass/Vol]37 mg/dL0-149 [facility] CenterComment on above:TRIG ATP III CLASSIFICATIONTRIG less than 150 mg/dL NormalTRIG 150-199 mg/dL Borderline highTRIG 200-500 mg/dL High TRIG greater than 500 mg/dL Very highStandard traceable to the Center for Disease Conrtrol and Prevention (CDC) test method. Triglyceride [Mass/Vol]Triglyceride [Mass/volume] in Serum or Plasma0-149 [facility] CenterComment on above:TRIG ATP III CLASSIFICATIONTRIG less than 150 mg/dL NormalTRIG 150-199 mg/dL Borderline highTRIG 200-500 mg/dL High TRIG greater than 500 mg/dL Very highStandard traceable to the Center for Disease Conrtrol and Prevention (CDC) test method. Troponin I.cardiac [Mass/volume] in Serum or Plasma by Detection limit <= 0.01 ng/Ordered By: Silvano Reed on 97-51-3109Helqdmdp I.cardiac DL <= 0.01 ng/mL [Mass/Vol]5.3 pg/mL0.0-20.0[facility] CenterTroponin I.cardiac DL <= 0.01 ng/mL [Mass/Vol]Troponin I.cardiac [Mass/volume] in Serum or Plasma by Detection limit <= 0.01 ng/0.0-20.0[facility] CenteraPTT in Platelet poor plasma by Coagulation assayOrdered By: Rubin Billy on 18-12-9513jCJK Coag (PPP) [Time]Activated partial thromboplastin time (aPTT) in platelet poor plasma by coagulation a25.1-36.5FUniversity Hospitals Geauga Medical CenterComment on above:A hematocrit value greater than 55% may lead to inaccurate results in coagulation testing. Patientshaving hematocrit values >55% require a special collection tube for coagulation studies. Please contact the laboratory at [phone] for redraw instructions.Basophils/100 WBC Manual cnt (Bld)on 85-99-2830Nmbknodva/100 WBC (Bld)1.0 %0.2-2.0[facility] CenterBasophils/100 WBC (Bld)Basophils/100 leukocytes in Blood by Manual count 0.2-2.0[facility] CenterEosinophils/100 WBC Manual cnt (Bld)on 53-65-6850Uhrusrpqqld/100 WBC (Bld)0.0 %Low0.9-7.0[facility] CenterEosinophils/100 WBC (Bld)Eosinophils/100 leukocytes in Blood by Manual countLow0.9-7.0[facility] CenterErythrocyte distribution width Auto (RBC) [Ratio]on 81-73-1403Akycoqparyq distribution width (RBC) [Ratio]13.6 %11.0-15.0[facility] CenterErythrocyte distribution width (RBC) [Ratio]Erythrocyte distribution width [Ratio] by Automated count11.0-15.0 [facility] CenterEstimated glomerular filtration rate (GFR) non- Americanon 50-01-7266PJJ/1.73 sq M.predicted among non-blacks MDRD (S/P/Bld) [Vol rate/Area]mL/min/{1.73_m2}>=60[facility] GFR/1.73 sq M.predicted among non-blacks MDRD (S/P/Bld) [Vol rate/Area]Estimated glomerular filtration rate (GFR) non->=60[facility] CenterHematocrit Auto (Bld) [Volume fraction]on 50-82-0635Qlhfkiqpou (Bld) [Volume fraction]36.0 %Low42.0-54.0[facility] Hematocrit (Bld) [Volume fraction]Hematocrit [Volume Fraction] of Blood by Automated rpfltPlc27.0-54.0[facility] CenterHemoglobin [Mass/volume] in Bloodon 29-75-1785Hrxczlfqis (Bld) [Mass/Vol]12.1 g/dLLow 14.0-18.0[facility] CenterHemoglobin (Bld) [Mass/Vol]Hemoglobin [Mass/volume] in XjvddAfn35.0-18.0[facility] CenterLaboratory - Chemistry and Chemistry - challengeon 58-58-6903Jqkhsvt [Mass/Vol]9.0 mg/dL 8.5-10.1FUniversity Hospitals Geauga Medical CenterChloride [Moles/Vol]96 mmol/FHgv51-097 [facility] CenterCO2 [Moles/Vol]28.2 mmol/L21.0-32.0[facility] CenterCreatinine [Mass/Vol]0.77 mg/dL0.70-1.30[facility] CenterGFR/1.73 sq M.predicted MDRD (S/P/Bld) [Vol rate/Area] mL/min/{1.73_m2}>=60[facility] CenterGlucose [Mass/Vol]121 mg/dL Thtz06-616OgzsisbwgKettering Health Behavioral Medical CenterMagnesium [Mass/Vol]1.8 mg/dL1.8-2.4 [facility] CenterNatriuretic peptide B (Bld) [Mass/Vol]2166.0 pg/mLCritically high<=900.0[facility] CenterComment on above: RESULTS CALLED TO MARYSOL LEYVA RN at 2105Potassium [Moles/Vol]4.2 mmol/L3.5-5.1 [facility] Hospitalodium [Moles/Vol]130 mmol/AJlo223-825ItylhojujKettering Health Behavioral Medical CenterUrea nitrogen [Mass/Vol]15.0 mg/dL7.0-18.0[facility] CenterUrea nitrogen/Creatinine [Mass ratio]19.5 mg/mgKettering Health Behavioral Medical CenterLaboratory - Hematology and Cell countson 02-01-2024 Lymphocytes/100 WBC (Bld)12.0 %Low20.5-60.0[facility] Monocytes/100 WBC (Bld)5.0 %1.7-12.0[facility] CenterLeukocytes [#/volume] corrected for nucleated erythrocytes in Blood by Automated counon 52-29-4150RHT corrected for nucl RBC Auto (Bld) [#/Vol]8.6 10 3/uL4.0-11.0 [facility] CenterWBC corrected for nucl RBC Auto (Bld) [#/Vol] Leukocytes [#/volume] corrected for nucleated erythrocytes in Blood by Automated coun4.0-11.0[facility] HospitalH Auto (RBC) [Entitic mass]on 96-82-8980QYV (RBC) [Entitic mass]30.3 pg25.9-34.0[facility] HospitalH (RBC) [Entitic mass]MCH [Entitic mass] by Automated count25.9-34.0 [facility] CenterMCHC Auto (RBC) [Mass/Vol]on 37-93-5306OIHK (RBC) [Mass/Vol]33.6 g/dL29.9-35.2FTriHealth Good Samaritan HospitalHC (RBC) [Mass/Vol]MCHC [Mass/volume] by Automated count29.9-35.2FTriHealth Good Samaritan HospitalV Auto (RBC) [Entitic vol]on 96-63-3066KBF (RBC) [Entitic vol] 90.2 fL80.0-94.0[facility] HospitalV (RBC) [Entitic vol]MCV [Entitic volume] by Automated count80.0-94.0[facility] CenterNo Panel Informationon 51-32-2001Mlmgjpve Basophils (Manual)0.08 10 3/uL0.00-0.10 [facility] CenterEosinophils # (Manual)0.00 10 3/uL0.00-0.70 [facility] CenterLymphocytes # (Manual)1.03 10 3/uLLow1.20-3.80 [facility] CenterMonocytes # (Manual)0.43 10 3/uL0.30-0.80 [facility] Hospitalegmented Neutrophils # (Manual)7.05 10 3/uL High1.4-6.5FUniversity Hospitals Geauga Medical CenterTroponin I High Sensitivity7.0 pg/mL 4.0-76.1FUniversity Hospitals Geauga Medical CenterComment on above:CUT-OFF POINTS HAVE BEEN ESTABLISHED BASED ON THE FOURTHUNIVERSAL DEFINITION OF MYOCARDIAL INFARCTIO N. THE UPPERREFERENCE LIMIT (URL) OF TROPONIN, DEFINED THE 99THPERCENTILE OF cTnI DISTRIBUTION IN A REFERENCE POPULATION,HAS BEEN CONFIRMED THE DECISION THRESHOLD FOR MIDIAGNOSIS.99TH PERCENTILE = 76.2 PG/MLNOTE: HIGH-SENSITIVITY TROPONIN ASSAY IS NOT INTENDED TO BEUSED IN ISOLATION BUT SHOULD BE INTERPRETED IN CONJUNCTIONWITH OTHER DIAGNOSTIC AND CLINICAL INFORMATION.Platelet mean volume Auto (Bld) [Entitic vol]on 21-73-8419Prhexgpy mean volume (Bld) [Entitic vol]9.9 fL9.5-13.5FUniversity Hospitals Geauga Medical CenterPlatelet mean volume (Bld) [Entitic vol]Platelet mean volume [Entitic volume] in Blood by Automated count 9.5-13.5FUniversity Hospitals Geauga Medical CenterPlatelets Auto (Bld) [#/Vol]on 99-64-6829Xutbhrgcb (Bld) [#/Vol]249 10 3/sF694-084PnioswmzoKettering Health Behavioral Medical CenterPlatelets (Bld) [#/Vol]Platelets [#/volume] in Blood by Automated count 150-450[facility] CenterRBC Auto (Bld) [#/Vol]on 15-53-4643EFN (Bld) [#/Vol]3.99 10 6/uLLow4.70-6.10[facility] CenterRBC (Bld) [#/Vol]Erythrocytes [#/volume] in Blood by Automated countLow4.70-6.10[facility] CenterSegmented neutrophils/100 WBC Manual cnt (Bld)on 28-74-9799Kqkyejgui neutrophils/100 WBC (Bld)82.0 %High43.0-75.0[facility] Hospitalegmented neutrophils/100 WBC (Bld)Manual blood segmented neutrophils/100 gkhghwydgmEgzn12.0-75.0[facility] Hospitalerum or plasma anion gap determinationon 28-77-8648Ewdmx gap [Moles/Vol]10.0 mmol/L [facility] CenterAnion gap [Moles/Vol]Serum or plasma anion gap determinationKettering Health Behavioral Medical CenterOSMOLALITYon 07-52-1296Iiykdumnad [Osmolality]275 mosm/kgCritically elb169-317Vbn [facility] HospitalComment on above:Performed By: #### URIC, BMP, TSH #### [facility] [address] [place] [address] Dr. Fabrizio PascualOSMOLALITY URINEon 00-28-6119Vulqclopqq, Zitdn058 mOsmol/kgNormal The [facility] HospitalComment on above:Result Comment: 24 hr : 300 - 900 Random: 50 - 1400 After 12hr fluid restriction: >850Performed By: #### URIC, BMP, TSH #### [facility] [address] [place] [address] Dr. Fabrizio Zafar W MANUAL DIFFon 74-13-0956OFUQNJGL LYMPH #NormalThe [facility] HospitalCommemorial healthcare on above:Performed By: #### BNP, BMP, HSTROPN #### [facility] [address] [place] [address] Dr. Fabrizio PascualATYPICAL LYMPH %NormalThe [facility] HospitalComment on above: Performed By: #### BNP, BMP, HSTROPN #### [facility] [address] [address] [address] Fabrizio Crowder #0.1 103/ulNormal0.0-0.3The [facility] HospitalComment on above:Performed By: #### BNP, BMP, HSTROPN #### [facility] [address] [place] [address] Dr. Fabrizio Crowder %1 %Normal0-5The [facility] HospitalComment on above:Performed By: #### BNP, BMP, HSTROPN #### [facility] [address] [place] [address] Dr. Fabrizio Nichols #0.00 103/ulNormal0.00-0.10The [facility] HospitalComment on above:Performed By: #### BNP, BMP, HSTROPN #### [facility] [address] [place] [address] Dr. Fabrizio Nichols %0.0 %Critically low0.2-2.0The [facility] HospitalComment on above:Performed By: #### BNP, BMP, HSTROPN #### [facility] [address] [place] [address] Dr. Fabrizio Prado #NormalThe [facility] HospitalComment on above:Performed By: #### BNP, BMP, HSTROPN #### [facility] [address] [place] [address] Dr. Fabrizio Prado %NormalThe [facility] HospitalComment on above:Performed By: #### BNP, BMP, HSTROPN #### [facility] [address] [place] [address] Dr. Fabrizio PascualCORRECTED WBCNormal4.0-11.0The [facility] on above: Performed By: #### BNP, BMP, HSTROPN #### [facility] [address] [place] [address] Dr. Fabrizio Cedillo #0.07 103/ulNormal0.00-0.70The [facility] HospitalCommemorial healthcare on above:Performed By: #### BNP, BMP, HSTROPN #### [facility] [address] [place] [address] Dr. Fabrizio Cedillo%1.0 %Normal0.9-7.0The [facility] HospitalComment on above: Performed By: #### BNP, BMP, HSTROPN #### [facility] [address] [place] [address] Dr. Fabrizio PascualHCT38.8 %Critically low42.0-54.0The [facility] HospitalComment on above:Performed By: #### BNP, BMP, HSTROPN #### [facility] [address] [place] [address] Dr. Fabrizio PascualHGB12.5 g/dlCritically low14.0-18.0The [facility] HospitalComment on above:Performed By: #### BNP, BMP, HSTROPN #### [facility] [address] [place] [address] Dr. Fabrizio Abdullahi #0.68 103/ulCritically low1.20-3.80The [facility] Comment on above:Performed By: #### BNP, BMP, HSTROPN #### [facility] [address] [place] [address] Dr. Fabrizio Abdullahi%9.0 %Critically low20.5-60.0The [facility] HospitalComment on above:Performed By: #### BNP, BMP, HSTROPN #### [facility] [address] [place] [address] Dr. Fabrizio RamosH28.1 doDxfjfm39.9-34.0The [facility] HospitalComment on above: Performed By: #### BNP, BMP, HSTROPN #### [facility] [address] [place] [address] Dr. Fabrizio PascualMCHC32.2 g/utYkwdbo38.9-35.2The [facility] HospitalComment on above:Performed By: #### BNP, BMP, HSTROPN #### [facility] [address] [place] [address] Dr. Fabrizio RamosV87.2 qPMvmwsj18.0-94.0The [facility] HospitalComment on above: Performed By: #### BNP, BMP, HSTROPN #### [facility] [address] [place] [address] Dr. Fabrizio RehmanAMYELOCYTE #NormalThe [facility] HospitalComment on above: Performed By: #### BNP, BMP, HSTROPN #### [facility] [address] [address] [address] Fabrizio RehmanAMYELOCYTE %NormalMercy Health Kings Mills HospitalComment on above: Performed By: #### BNP, BMP, HSTROPN #### [facility] [address] [address] [address] Fabrizio Landis#0.82 103/ulCritically high0.30-0.80The [facility] [place] on above:Performed By: #### BNP, BMP, HSTROPN #### [facility] [address] [address] [address] Fabrizio Landis%11.0 %Normal1.7-12.0The [facility] HospitalComment on above: Performed By: #### BNP, BMP, HSTROPN #### [facility] [address] [place] [address] Dr. Fabrizio PascualMPV9.2 fLCritically low9.5-13.5The [facility] HospitalComment on above:Performed By: #### BNP, BMP, HSTROPN #### [facility] [address] [place] [address] Dr. Fabrizio AnthonyOCYTE #NormalMercy Health Kings Mills HospitalComment on above:Performed By: #### BNP, BMP, HSTROPN #### [facility] [address] [place] [address] Dr. Fabrizio AnthonyOCYTE %NormalThe [facility] HospitalComment on above:Performed By: #### BNP, BMP, HSTROPN #### [facility] [address] [place] [address] Dr. Fabrizio SouzaBCNormalThe [facility] HospitalComment on above:Performed By: #### BNP, BMP, HSTROPN #### [facility] [address] [place] [address] Dr. Fabrizio PascualPLT272 103/uqHxaqtf447-973Goy [facility] HospitalComment on above: Performed By: #### BNP, BMP, HSTROPN #### [facility] [address] [place] [address] Dr. Fabrizio PascualRBC4.45 106/ulCritically low4.70-6.10The [facility] HospitalComment on above:Performed By: #### BNP, BMP, HSTROPN #### [facility] [address] [place] [address] Dr. Fabrizio GreenW13.7 %Brgeuq31.0-15.0The [facility] HospitalComment on above: Performed By: #### BNP, BMP, HSTROPN #### [facility] [address] [place] [address] Dr. Fabrizio Pardo #5.85 103/ulNormal1.40-6.50The [facility] HospitalComment on above:Performed By: #### BNP, BMP, HSTROPN #### [facility] [address] [place] [address] Dr. Fabrizio Pardo %78.0 %Critically high43.0-75.0The [facility] HospitalComment on above:Performed By: #### BNP, BMP, HSTROPN #### [facility] [address] [place] [address] Dr. Fabrizio RayaBC7.5 103/ulNormal4.0-11.0The [facility] HospitalComment on above: Performed By: #### BNP, BMP, HSTROPN #### [facility] [address] [place] [address] Dr. Fabrizio Rush CHEM 8 (BAS METB)on 76-36-4570Sioix gap [Moles/Vol]10.1 mmol/LNormalThe [facility] HospitalComment on above:Performed By: #### URIC, BMP, TSH #### [facility] [address] [place] [address] Dr. Fabrizio PascualCalcium [Mass/Vol]9.0 mg/dLNormal8.5-10.1The [facility] Comment on above:Performed By: #### URIC, BMP, TSH #### [facility] [address] [place] [address] Dr. Fabrizio PascualChloride [Moles/Vol]99 mmol/OCbbzci29-151Qvx [facility] Comment on above:Performed By: #### URIC, BMP, TSH #### [facility] [address] [address] [address] Fabrizio PascualCO2 [Moles/Vol]28.9 mmol/AGsgfrs42.0-32.0The [facility] Comment on above:Performed By: #### URIC, BMP, TSH #### [facility] [address] [address] [address] Fabrizio PascualCreatinine [Mass/Vol]1.00 mg/dLNormal0.70-1.30The [facility] HospitalComment on above:Performed By: #### URIC, BMP, TSH #### [facility] [address] [place] [address] Dr. Fabrizio JohnsonGFR-AF MOROCCAN>60Normal>=60The [facility] HospitalComment on above:Performed By: #### URIC, BMP, TSH #### [facility] [address] [address] [address] Fabrizio JohnsonGFR-NON AF MOROCCAN>60Normal>=60The [facility] HospitalComment on above:Performed By: #### URIC, BMP, TSH #### [facility] [address] [address] [address] Fabrizio PascualGlucose [Mass/Vol]111 mg/dLCritically qzxc63-592Iqb [facility] HospitalComment on above:Performed By: #### URIC, BMP, TSH #### [facility] [address] [address] [address] Fabrizio PascualPotassium [Moles/Vol]4.0 mmol/LNormal3.5-5.1The [facility] Comment on above:Performed By: #### URIC, BMP, TSH #### [facility] [address] [place] [address] Dr. Fabrizio PascualSodium [Moles/Vol]134 mmol/LCritically jdo452-214Ycm [facility] HospitalComment on above:Performed By: #### URIC, BMP, TSH #### [facility] [address] [place] [address] Dr. Fabrizio PascualUrea nitrogen [Mass/Vol]16.0 mg/dLNormal7.0-18.0The [facility] Hospitalment on above:Performed By: #### URIC, BMP, TSH #### [facility] [address] [place] [address] Dr. Fabrizio Cabrera nitrogen/Creatinine [Mass ratio]16.0 mg/mgNoWayne HealthCare Main CampusComment on above:Performed By: #### URIC, BMP, TSH #### [facility] [address] [place] [address] Dr. Fabrizio OlveraDIUM RANDOM URINEon 31-96-2961Tsfngg (U) [Moles/Vol]78 mmol/L Wyvsia98-96Fmu [facility] HospitalComment on above:Performed By: #### CHERYL #### [facility] [address] [place] [address] Dr. Fabrizio Zhu TAHIR DOP LEG LTon 60-77-0545NM TAHIR DOP LEG LTEXAMINATION: US TAHIR DOP LEG LT HISTORY: Swelling COMPARISON: No relevant comparison available. TECHNIQUE: FINDINGS: Region: left leg Thrombus: None Flow: Normal Compressibility: Normal Augmentation: Normal Other: Subq edema IMPRESSION: No deep or superficial vein thrombus *Exam performed in accordance with [facility] practice guidelines- Peripheral venous ultrasound, August 08, 2009. Electronically authenticated by: GREGG QUIROS Date: 2022-05-16 15:34[facility] HospitalBNPon 02-48-0934Larnchilbei peptide B (Bld) [Mass/Vol]719.0 pg/mLNormal<=900.0The [facility] HospitalCommemorial healthcare on above:Performed By: #### BNP, BMP, HSTROPN #### [facility] [address] [place] [address] Dr. Fabrizio PascualCBC AUTO DIFFon 63-68-4447NJPN #0.0 103/ulNormal0.0-0.1The [facility] on above:Performed By: #### CBC #### [facility] [address] [place] [address] Dr. Fabrizio PascualBasophils/100 WBC (Bld)0.2 %Normal0.2-2.0The [facility] Comment on above:Performed By: #### CBC #### [facility] [address] [place] [address] Dr. Fabrizio Jung #0.1 103/ulNormal0.0-0.7The [facility] HospitalComment on above: Performed By: #### CBC #### [facility] [address] [place] [address] Dr. Fabrizio Johnsonosinophils/100 WBC (Bld)1.0 %Normal0.9-7.0[facility] Comment on above:Performed By: #### CBC #### [facility] [address] [place] [address] Dr. Fabrizio Johnsonrythrocyte distribution width (RBC) [Ratio]13.1 %Vivnap82.0-15.0 [facility] HospitalComment on above:Performed By: #### CBC #### [facility] [address] [place] [address] Dr. Fabrizio PascualHematocrit (Bld) [Volume fraction]32.6 %Critically low42.0-54.0 [facility] HospitalComment on above:Performed By: #### CBC #### [facility] [address] [place] [address] Dr. Fabrizio PascualHemoglobin (Bld) [Mass/Vol]10.9 g/dLCritically low14.0-18.0[facility] HospitalComment on above:Performed By: #### CBC #### [facility] [address] [place] [address] Dr. Fabrizio Nolasco #0.06 10e3/ulCritically high0.00-0.03[facility] Comment on above:Performed By: #### CBC #### [facility] [address] [place] [address] Dr. Fabrizio Nolasco %0.6 %Critically high0.0-0.5The [facility] HospitalComment on above:Performed By: #### CBC #### [facility] [address] [place] [address] Dr. Fabrizio Richardson #0.6 103/ulCritically low1.2-3.8Th[facility] Comment on above:Performed By: #### CBC #### [facility] [address] [place] [address] Dr. Fabrizio Covarrubiasmphocytes/100 WBC (Bld)5.8 %Critically low20.5-60.0The [facility] HospitalComment on above:Performed By: #### CBC #### [facility] [address] [place] [address] Dr. Fabrizio King DIFF REQNONormalThe [facility] HospitalComment on above: Performed By: #### CBC #### [facility] [address] [place] [address] Dr. Fabrizio Ramos (RBC) [Entitic mass]29.3 hkHnafzs67.9-34.0The [facility] HospitalComment on above:Performed By: #### CBC #### [facility] [address] [place] [address] Dr. Fabrizio Ramos (RBC) [Mass/Vol]33.4 g/xENpkabu44.9-35.2The [facility] HospitalComment on above:Performed By: #### CBC #### [facility] [address] [place] [address] Dr. Fabrizio Clements (RBC) [Entitic vol]87.6 eUKcocst36.0-94.0The [facility] HospitalComment on above:Performed By: #### CBC #### [facility] [address] [place] [address] Dr. Fabrizio Gutierrez #1.4 103/ulCritically high0.3-0.8ThUC [facility] Center Comment on above:Performed By: #### CBC #### [facility] [address] [place] [address] Dr. Fabrizio Ribeiroocytes/100 WBC (Bld)13.4 %Critically high1.7-12.0The [facility] HospitalComment on above:Performed By: #### CBC #### [facility] [address] [place] [address] Dr. Yilan ChangNEUT #8.4 103/ulCritically high1.4-6.5The [facility] Comment on above:Performed By: #### CBC #### [facility] [address] [place] [address] Dr. Fabrizio Ellisutrophils/100 WBC (Bld)79.0 %Critically high43.0-75.0The [facility] HospitalComment on above:Performed By: #### CBC #### [facility] [address] [place] [address] Dr. Fabrizio PascualPlatelet mean volume (Bld) [Entitic vol]9.1 fLCritically low 9.5-13.5The [facility] HospitalComment on above:Performed By: #### CBC #### [facility] [address] [place] [address] Dr. Fabrizio PascualPLT347 103/iaLqmbsh978-203Osi [facility] HospitalComment on above: Performed By: #### CBC #### [facility] [address] [place] [address] Dr. Fabrizio PascualRBC3.72 106/ulCritically low4.70-6.10The [facility] HospitalComment on above:Performed By: #### CBC #### [facility] [address] [place] [address] Dr. Fabrizio PascualWBC10.7 103/ulNormal4.0-11.0The [facility] HospitalComment on above:Performed By: #### CBC #### [facility] [address] [place] [address] Dr. Fabrizio PascualCovid-19 PCR ([facility]VDTARAVIST[facility])on 47-82-3715WJFO-CoV-2 (COVID-19) RNA HOWIE+probe Ql (Unsp spec)Not detectedNormalNOT DETECTEDThe [facility] Comment on above:Result Comment: When diagnostic testing is negative, the [...] for this test is supported by the [place] of Health and Human Service's declaration that circumstances exist to justify the emergency use of in vitro diagnostics for the detection and/or diagnosis of the virus that causes COVID-19. This EUA will remain in effect for the duration of the COVID-19 declaration justifying emergency of IVDs, unless it is terminated or revoked by the FDA (after which the test may no longer be used).Performed By: #### CVDTBH #### [facility] [address] [place] [address] Dr. Fabrizio Moran AND [facility] 15-76-9631CSJXMMABMEOADMercy Health St. [facility] on above:Result Comment: Negative for Flu A protein angiten. Infection due to Flu A cannot be ruled out. FluA angiten in the sample may be below the detection limit of the test.Performed By: #### URIC, BMP, TSH #### [facility] [address] [place] [address] Dr. Fabrizio JonesUBNEGYEMI [facility] on above: Result Comment: Negative for Flu B protein antigen. Infection due to Flu B cannot be ruled out. FluB antigen in the sample may be below the detection limit of the test.Performed By: #### URIC, BMP, TSH #### [facility] [address] [place] [address] Dr. Fabrizio Moran AGNegativeNormalNEGATIVE SEE COMMENTThe [facility] on above:Performed By: #### URIC, BMP, TSH #### [facility] [address] [place] [address] Dr. Fabrizio Hoskins AGNegativeNormalNEGATIVE SEE COMMENTThe [facility] on above:Performed By: #### URIC, BMP, TSH #### [facility] [address] [place] [address] Dr. Fabrizio PascualINTERNAL CONTROLSWithin Normal LimitsNormalWithin Normal Limits The [facility] HospitalComment on above:Performed By: #### URIC, BMP, TSH #### [facility] [facility] [address] [address] [address] Fabrizio FayF CHEM 8 (BAS METB)on 46-04-1466Ceslk gap [Moles/Vol]10.8 mmol/LNormalThe [facility] HospitalComment on above:Performed By: #### BNP, BMP, HSTROPN #### [facility] [address] [address] [address] Fabrizio PascualCalcium [Mass/Vol]8.8 mg/dLNormal8.5-10.1The [facility] Comment on above:Performed By: #### BNP, BMP, HSTROPN #### [facility] [address] [place] [address] Dr. Fabrizio PascualChloride [Moles/Vol]94 mmol/LCritically azz80-262Vrf [facility] HospitalComment on above:Performed By: #### BNP, BMP, HSTROPN #### [facility] [address] [place] [address] Dr. Fabrizio PascualCO2 [Moles/Vol]27.7 mmol/PSawvem54.0-32.0The [facility] Comment on above:Performed By: #### BNP, BMP, HSTROPN #### [facility] [address] [place] [address] Dr. Fabrizio PascualCreatinine [Mass/Vol]1.09 mg/dLNormal0.70-1.30The [facility] HospitalComment on above:Performed By: #### BNP, BMP, HSTROPN #### [facility] [address] [place] [address] Dr. Fabrizio JohnsonGFR-AF MOROCCAN>60Normal>=60The [facility] HospitalComment on above:Performed By: #### BNP, BMP, HSTROPN #### [facility] [address] [place] [address] Dr. Fabrizio JohnsonGFR-NON AF MOROCCAN>60Normal>=60The [facility] HospitalComment on above:Performed By: #### BNP, BMP, HSTROPN #### [facility] [address] [place] [address] Dr. Fabrizio PascualGlucose [Mass/Vol]103 mg/rNAkcvfb64-695Mic [facility] Comment on above:Performed By: #### BNP, BMP, HSTROPN #### [facility] [address] [place] [address] Dr. Fabrizio PascualPotassium [Moles/Vol]3.5 mmol/LNormal3.5-5.1The [facility] Comment on above:Performed By: #### BNP, BMP, HSTROPN #### [facility] [address] [place] [address] Dr. Fabrizio PascualSodium [Moles/Vol]129 mmol/LCritically imd567-405Ioj [facility] HospitalComment on above:Performed By: #### BNP, BMP, HSTROPN #### [facility] [address] [place] [address] Dr. Fabrizio PascualUrea nitrogen [Mass/Vol]15.0 mg/dLNormal7.0-18.0The [facility] HospitalComment on above:Performed By: #### BNP, BMP, HSTROPN #### [facility] [address] [place] [address] Dr. Fabrizio Cabrera nitrogen/Creatinine [Mass ratio]13.8 mg/mgNormalThe [facility] HospitalComment on above:Performed By: #### BNP, BMP, HSTROPN #### [facility] [address] [place] [address] Dr. Fabrizio Hankins, HIGH SENSITIVITYon 55-28-8572GPEJGM2.5 pg/mLNormal 4.0-76.1[facility] HospitalComment on above:Result Comment: CUT-OFF POINTS HAVE BEEN ESTABLISHED BASED ON THE FOURTH UNIVERSAL DEFINITIONS OF MYOCARDIAL INFARCTION. THE UPPER REFERENCE LIMIT (URL) OF TROPONIN, DEFINED THE 99TH PERCENTILE OF cTnI DISTRIBUTION IN A REFERENCE POPULATION, HAS BEEN CONFIRMED THE DECISION THRESHOLD FOR ID DIAGNOSIS.Performed By: #### BNP, BMP, HSTROPN #### [facility] [address], [place] [address] Dr. Fabrizio PascualXR CHEST 1 Von [id number] CHEST 1 VEXAM: XR CHEST 1 V HISTORY: COUGH COMPARISON: [...] Electronically authenticated by: JAYDEN VALENTINE Date: 2022-04-19 17:36[facility] HospitalMRI B[facility] WO W CONon [id number] BRAIN WO W CONEXAMINATION: MRI BRAIN WO W CON HISTORY: Syndrome of inappropriate [...] Electronically authenticated by: CORINNE OCHOA Date: 2021-12-14 06:55[facility] CampusCT CHE[facility] WO CONon [id number] CHEST WO CONEXAMINATION: CT CHEST WO CON HISTORY: Syndrome of inappropriate vasopressin [...] Electronically authenticated by: CORINNE OCHOA Date: 2021-12-13 18:10[facility] HospitalOSMOLALITYon 35-50-5031Vqdspdlxet [Osmolality]275 mosm/kg Critically msi448-951McjMercy Health Kings Mills HospitalComment on above:Performed By: #### OSMO #### [facility] [address] [place] [address] Dr. Fabrizio Peña 55-81-8144Ahxwuppp7.2 ug/dLNormalThe [facility] Comment on above:Result Comment: Cortisol AM 6.2 - 19.4 Cortisol PM 2.3 - 11.9Performed By: #### URIC, BMP, TSH #### [facility] [address] [place] [address] Dr. Fabrizio PascualOSMOLALITY URINEon 06-22-7394Nbckxceipq, Eaycr053 mOsmol/kgNormal The [facility] HospitalComment on above:Result Comment: 24 hr : 300 - 900 Random: 50 - 1400 After 12hr fluid restriction: >850Performed By: #### URIC, BMP, TSH #### [facility] [address] [address] [address] Fabrizio PascualPROF CHEM 8 (BAS METB)on 30-04-9082Oonyk gap [Moles/Vol]10.1 mmol/LNormalMercy Health Kings Mills HospitalComment on above:Performed By: #### URIC, BMP, TSH #### [facility] [address] [place] [address] Dr. Fabrizio PascualCalcium [Mass/Vol]8.8 mg/dLNormal8.5-10.1[facility] Comment on above:Performed By: #### URIC, BMP, TSH #### [facility] [address] [place] [address] Dr. Fabrizio PascualChloride [Moles/Vol]97 mmol/LCritically wdt84-856TwhMercy Health Kings Mills HospitalComment on above:Performed By: #### URIC, BMP, TSH #### [facility] [address] [place] [address] Dr. Fabrizio PascualCO2 [Moles/Vol]28.9 mmol/BGgbdhy22.0-32.0[facility] Comment on above:Performed By: #### URIC, BMP, TSH #### [facility] [address] [place] [address] Dr. Fabrizio PacsualCreatinine [Mass/Vol]1.08 mg/dLNormal0.70-1.30The [facility] HospitalComment on above:Performed By: #### URIC, BMP, TSH #### [facility] [address] [address] [address] Fabrizio JohnsonGFR-AF MOROCCAN>60Normal>=60The [facility] HospitalComment on above:Performed By: #### URIC, BMP, TSH #### [facility] [address] [address] [address] Fabrizio JohnsonGFR-NON AF MOROCCAN>60Normal>=60The [facility] HospitalComment on above:Performed By: #### URIC, BMP, TSH #### [facility] [address] [place] [address] Dr. Fabrizio PascualGlucose [Mass/Vol]106 mg/sKSptttq62-177Hnj [facility] Comment on above:Performed By: #### URIC, BMP, TSH #### [facility] [address] [place] [address] Dr. Fabrizio PascualPotassium [Moles/Vol]4.0 mmol/LNormal3.5-5.1The [facility] Comment on above:Performed By: #### URIC, BMP, TSH #### [facility] [address] [address] [address] Fabrizio PascualSodium [Moles/Vol]132 mmol/LCritically ztr625-741Ofo [facility] HospitalComment on above:Performed By: #### URIC, BMP, TSH #### [facility] [address] [place] [address] Dr. Fabrizio PascualUrea nitrogen [Mass/Vol]18.0 mg/dLNormal7.0-18.0The [facility] HospitalComment on above:Performed By: #### URIC, BMP, TSH #### [facility] [address] [place] [address] Dr. Fabrizio Cabrera nitrogen/Creatinine [Mass ratio]16.7 mg/mgNormalThe [facility] HospitalComment on above:Performed By: #### URIC, BMP, TSH #### [facility] [address] [place] [address] Dr. Fabrizio OlveraDIUM RANDOM URINEon 88-47-6959Cneufj (U) [Moles/Vol]82 mmol/L Mmbaiz43-55Ppi [facility] HospitalComment on above:Performed By: #### BNP, BMP, HSTROPN #### [facility] [address] [address] [address] Fabrizio Parmar 76-65-5760AUA8.576 uIU/mLNormal0.358-3.740The [facility] HospitalComment on above:Performed By: #### URIC, BMP, TSH #### [facility] [address] [place] [address] Dr. Fabrizio PascualURIC ACID SERUMon 50-12-5223Izswo [Mass/Vol]7.2 mg/dLNormal 3.5-7.2The [facility] HospitalComment on above:Performed By: #### URIC, BMP, TSH #### [facility] [address] [place] [address] Dr. Fabrizio PascualPROF CHEM 8 (BAS METB)on 12-19-3282Azunc gap [Moles/Vol]14.8 mmol/LNormalThe [facility] HospitalComment on above:Performed By: #### URIC, BMP, TSH #### [facility] [address] [place] [address] Dr. Fabrizio PascualCalcium [Mass/Vol]9.1 mg/dLNormal8.5-10.1The [facility] Comment on above:Performed By: #### URIC, BMP, TSH #### [facility] [address] [place] [address] Dr. Fabrizio PascualChloride [Moles/Vol]91 mmol/LCritically phy63-383Lqc [facility] HospitalComment on above:Performed By: #### URIC, BMP, TSH #### [facility] [address] [place] [address] Dr. Fabrizio PascualCO2 [Moles/Vol]22.2 mmol/HSxnluf60.0-32.0The [facility] Comment on above:Performed By: #### URIC, BMP, TSH #### [facility] [address] [place] [address] Dr. Fabrizio PascualCreatinine [Mass/Vol]0.97 mg/dLNormal0.70-1.30The [facility] HospitalComment on above:Performed By: #### URIC, BMP, TSH #### [facility] [address] [place] [address] Dr. Fabrizio JohnsonGFR-AF MOROCCAN>60Normal>=60The [facility] HospitalComment on above:Performed By: #### URIC, BMP, TSH #### [facility] [address] [address] [address] Fabrizio JohnsonGFR-NON AF MOROCCAN>60Normal>=60The [facility] HospitalComment on above:Performed By: #### URIC, BMP, TSH #### [facility] [address] [place] [address] Dr. Fabrizio PascualGlucose [Mass/Vol]144 mg/dLCritically lcvj67-004Bov [facility] HospitalComment on above:Performed By: #### URIC, BMP, TSH #### [facility] [address] [place] [address] Dr. Fabrizio PascualPotassium [Moles/Vol]4.0 mmol/LNormal3.5-5.1The [facility] Comment on above:Performed By: #### URIC, BMP, TSH #### [facility] [address] [place] [address] Dr. Fabrizio Olveradium [Moles/Vol]124 mmol/LCritically wfp220-783Pcr [facility] Hospitalment on above:Performed By: #### URIC, BMP, TSH #### [facility] [address] [place] [address] Dr. Fabrizio PascualUrea nitrogen [Mass/Vol]18.0 mg/dLNormal7.0-18.0The [facility] HospitalComment on above:Performed By: #### URIC, BMP, TSH #### [facility] [address] [place] [address] Dr. Fabrizio Cabrera nitrogen/Creatinine [Mass ratio]18.6 mg/mgNormalThe [facility] HospitalComment on above:Performed By: #### URIC, BMP, TSH #### [facility] [address] [place] [address] Dr. Fabrizio Myers 45-88-0217Inxsliyhvbx peptide B (Bld) [Mass/Vol]1143.0 pg/mLCritically high<=900.0The [facility] HospitalComment on above:Performed By: #### URIC, BMP, TSH #### [facility] [address] [address] [address] Fabrizio Zafar W MANUAL DIFFon 88-35-2073PWDVGZHX LYMPH #NormalThe [facility] HospitalComment on above:Performed By: #### URIC, BMP, TSH #### [facility] [address] [address] [address] Fabrizio AndradeYPICAL LYMPH %NormalThe [facility] HospitalComment on above: Performed By: #### URIC, BMP, TSH #### [facility] [address] [place] [address] Dr. Fabrizio Crowder #0.0 103/ulNormal0.0-0.3The [facility] HospitalComment on above:Performed By: #### URIC, BMP, TSH #### [facility] [address] [place] [address] Dr. Fabrizio Crowder %0 %Normal0-5The [facility] HospitalComment on above:Performed By: #### URIC, BMP, TSH #### [facility] [address] [place] [address] Dr. Fabrizio Nichols #0.00 103/ulNormal0.00-0.10The [facility] HospitalComment on above:Performed By: #### URIC, BMP, TSH #### [facility] [address] [place] [address] Dr. Fabrizio Nichols %0.0 %Critically low0.2-2.0The [facility] HospitalComment on above:Performed By: #### URIC, BMP, TSH #### [facility] [address] [place] [address] Dr. Fabrizio Prado #NormalThe [facility] HospitalComment on above:Performed By: #### URIC, BMP, TSH #### [facility] [address] [place] [address] Dr. Fabrizio PascualBLAST %NormalThe [facility] HospitalComment on above:Performed By: #### URIC, BMP, TSH #### [facility] [address] [place] [address] Dr. Fabrizio PascualCORRECTED WBCNormal4.0-11.0The [facility] HospitalComment on above: Performed By: #### URIC, BMP, TSH #### [facility] [address] [place] [address] Dr. Fabrizio Cedillo #0.24 103/ulNormal0.00-0.70The [facility] HospitalComment on above:Performed By: #### URIC, BMP, TSH #### [facility] [address] [place] [address] Dr. Fabrizio Cedillo%2.0 %Normal0.9-7.0The [facility] HospitalComment on above: Performed By: #### URIC, BMP, TSH #### [facility] [address] [place] [address] Dr. Fabrizio PascualHCT37.1 %Critically low42.0-54.0The [facility] HospitalComment on above:Performed By: #### URIC, BMP, TSH #### [facility] [address] [place] [address] Dr. Fabrizio PascualHGB12.3 g/dlCritically low14.0-18.0The [facility] HospitalComment on above:Performed By: #### URIC, BMP, TSH #### [facility] [address] [place] [address] Dr. Fabrizio Abdullahi #0.60 103/ulCritically low1.20-3.80The [facility] Comment on above:Performed By: #### URIC, BMP, TSH #### [facility] [address] [place] [address] Dr. Fabrizio Abdullahi%5.0 %Critically low20.5-60.0The [facility] HospitalComment on above:Performed By: #### URIC, BMP, TSH #### [facility] [address] [place] [address] Dr. Fabrizio RamosH29.3 axHtpwbx94.9-34.0The [facility] HospitalComment on above: Performed By: #### URIC, BMP, TSH #### [facility] [address] [place] [address] Dr. Fabrizio RamosHC33.2 g/zpJliyon93.9-35.2The [facility] HospitalComment on above:Performed By: #### URIC, BMP, TSH #### [facility] [address] [place] [address] Dr. Fabrizio RamosV88.3 oLSurscp49.0-94.0The [facility] HospitalComment on above: Performed By: #### URIC, BMP, TSH #### [facility] [address] [place] [address] Dr. Fabrizio RickettsOCYTE #NormalThe [facility] HospitalComment on above: Performed By: #### URIC, BMP, TSH #### [facility] [address] [place] [address] Dr. Fabrizio RickettsOCYTE %NormalThe [facility] HospitalComment on above: Performed By: #### URIC, BMP, TSH #### [facility] [address] [place] [address] Dr. Fabrizio Landis#0.60 103/ulNormal0.30-0.80The [facility] HospitalComment on above:Performed By: #### URIC, BMP, TSH #### [facility] [address] [place] [address] Dr. Fabrizio Landis%5.0 %Normal1.7-12.0The [facility] HospitalComment on above: Performed By: #### URIC, BMP, TSH #### [facility] [address] [place] [address] Dr. Fabrizio Motta9.2 fLCritically low9.5-13.5The [facility] HospitalComment on above:Performed By: #### URIC, BMP, TSH #### [facility] [address] [place] [address] Dr. Fabrizio Quiñonez #NormalThe [facility] HospitalComment on above:Performed By: #### URIC, BMP, TSH #### [facility] [address] [address] [address] Fabrizio AnthonyOCYTE %NormalThe [facility] Hospitalment on above:Performed By: #### URIC, BMP, TSH #### [facility] [address] [address] [address] Fabrizio SouzaBCNormalThe [facility] HospitalComment on above:Performed By: #### URIC, BMP, TSH #### [facility] [address] [address] [address] Fabrizio SquiresT227 103/erPhxjpk657-825Nqc [facility] Hospitalment on above: Performed By: #### URIC, BMP, TSH #### [facility] [address] [address] [address] Fabrizio ManningC4.20 106/ulCritically low4.70-6.10The [facility] HospitalCommemorial healthcare on above:Performed By: #### URIC, BMP, TSH #### [facility] [address] [address] [address] Fabrizio GreenW14.0 %Kgzkyd16.0-15.0The [facility] on above: Performed By: #### URIC, BMP, TSH #### [facility] [address] [address] [address] Fabrizio Pardo #10.65 103/ulCritically high1.40-6.50The [facility] Comment on above:Performed By: #### URIC, BMP, TSH #### [facility] [address] [address] [address] Fabrizio Pardo %88.0 %Critically high43.0-75.0The [facility] on above:Performed By: #### URIC, BMP, TSH #### [facility] [address] [address] [address] Fabrizio RayaBC12.1 103/ulCritically high4.0-11.0The [facility] Hospitalment on above:Performed By: #### URIC, BMP, TSH #### [facility] [address] [place] [address] Dr. Fabrizio Ornelas BLOODon 05-78-9579Erheagfwkyc examination of blood, cultureCulture Observations: NO GROWTH AT 5 DAYS.NormalThe [facility] HospitalComment on above:Performed By: #### URIC, BMP, TSH #### [facility] [address] [place] [address] Dr. Fabrizio PascualMicroscopic examination of blood, cultureCulture Observations: NO GROWTH AT 5 DAYS.NormalThe [facility] HospitalComment on above:Performed By: #### URIC, BMP, TSH #### [facility] [address] [place] [address] Dr. Fabrizio PascualCovid-19 PCR ([facility])on 52-83-2168UHVV-CoV-2 (COVID-19) RNA HOWIE+probe Ql (Unsp spec)Not detectedNormalNOT DETECTEDThe [facility] Comment on above:Result Comment: When diagnostic testing is negative, the [...] for this test is supported by the Financial Systems Administrator of Health and Human Service's declaration that circumstances exist to justify the emergency use of in vitro diagnostics for the detection and/or diagnosis of the virus that causes COVID-19. This EUA will remain in effect for the duration of the COVID-19 declaration justifying emergency of IVDs, unless it is terminated or revoked by the FDA (after which the test may no longer be used).Performed By: #### URIC, BMP, TSH #### [facility] [address] [place] [address] Dr. Fabrizio PascualLACTATE/LACTIC ACIDon 38-29-0397Aqxixpk [Moles/Vol]1.2 mmol/L Normal0.4-1.9The [facility] HospitalComment on above:Performed By: #### BNP, BMP, HSTROPN #### [facility] [address] [place] [address] Dr. Fabrizio FayF CHEM 8 (BAS METB)on 08-15-8183Swtdq gap [Moles/Vol]13.7 mmol/LNormalThe [facility] HospitalComment on above:Performed By: #### URIC, BMP, TSH #### [facility] [address] [place] [address] Dr. Fabrizio PascualCalcium [Mass/Vol]8.8 mg/dLNormal8.5-10.1The [facility] Comment on above:Performed By: #### URIC, BMP, TSH #### [facility] [address] [place] [address] Dr. Fabrizio PascualChloride [Moles/Vol]91 mmol/LCritically opx28-543Yal [facility] HospitalComment on above:Performed By: #### URIC, BMP, TSH #### [facility] [address] [place] [address] Dr. Fabrizio PascualCO2 [Moles/Vol]25.0 mmol/HOcjyxa33.0-32.0The [facility] Comment on above:Performed By: #### URIC, BMP, TSH #### [facility] [address] [place] [address] Dr. Fabrizio PascualCreatinine [Mass/Vol]0.97 mg/dLNormal0.70-1.30The [facility] HospitalComment on above:Performed By: #### URIC, BMP, TSH #### [facility] [address] [place] [address] Dr. Fabrizio JohnsonGFR-AF MOROCCAN>60Normal>=60The [facility] HospitalComment on above:Performed By: #### URIC, BMP, TSH #### [facility] [address] [place] [address] Dr. Fabrizio JohnsonGFR-NON AF MOROCCAN>60Normal>=60The [facility] HospitalComment on above:Performed By: #### URIC, BMP, TSH #### [facility] [address] [place] [address] Dr. Fabrizio PascualGlucose [Mass/Vol]85 mg/yWRbqmdd35-012Des [facility] Comment on above:Performed By: #### URIC BMP, TSH #### [facility] [address] [address] [address] Fabrizio PascualPotassium [Moles/Vol]3.7 mmol/LNormal3.5-5.1The [facility] Comment on above:Performed By: #### URIC, BMP, TSH #### [facility] [address] [address] [address] Fabrizio PascualSodium [Moles/Vol]126 mmol/LCritically tia249-731Lkd [facility] HospitalComment on above:Performed By: #### URIC, BMP, TSH #### [facility] [address] [place] [address] Dr. Fabrizio PascualUrea nitrogen [Mass/Vol]12.0 mg/dLNormal7.0-18.0The [facility] HospitalComment on above:Performed By: #### URIC BMP, TSH #### [facility] [address] [address] [address] Fabrizio Cabrera nitrogen/Creatinine [Mass ratio]12.4 mg/mgNormalThe [facility] HospitalComment on above:Performed By: #### URIC BMP, TSH #### [facility] [address] [place] [address] Dr. Fabrizio Hnakins, HIGH SENSITIVITYon 93-56-0367LBMYBJ4.6 pg/mLNormal 4.0-76.1The [facility] HospitalComment on above:Result Comment: CUT-OFF POINTS HAVE BEEN ESTABLISHED BASED ON THE FOURTH UNIVERSAL DEFINITIONS OF MYOCARDIAL INFARCTION. THE UPPER REFERENCE LIMIT (URL) OF TROPONIN, DEFINED THE 99TH PERCENTILE OF cTnI DISTRIBUTION IN A REFERENCE POPULATION, HAS BEEN CONFIRMED THE DECISION THRESHOLD FOR ID DIAGNOSIS.Performed By: #### URIC, BMP, TSH #### [facility] [address] [place] [id number] Dr. Fabrizio PascualXR CHEST 1 Von [id number] CHEST 1 VEXAM: XR CHEST 1 V. HISTORY: SHORTNESS OF [...] Electronically authenticated by: DECLAN TRIPLETT Date: 2021-11-15 19:25[facility] HospitalCOVID-19 Positive/NegativeOrdered By: Gregg Hilliard on 10-22-2021 SARS-CoV-2 (COVID-19) N gene HOWIE+probe Ql (Resp)NegativeNegativeKettering Health Behavioral Medical CenterComment on above:Testing for SARS-CoV-2 by RT-PCR This test was developed and its performance characteristics determined by [employer] ([employer]) and validated at the [facility]. This test has not been FDA cleared [...] unless the authorization is terminated or revoked sooner.Office Visit (Cardiology)on [id number]-up visit Diagnoses/Problems Assessed Non-ischemic cardiomyopathy (425.4) (I42.8) [...] Inhalation SolutionINHALE 1 (ONE) vial via NEBULIZER TWICEDAILY - FOUR TIMES DAILY Multiple Vitamins Oral Tablet predniSONE 5 MG Oral TabletTAKE 1 TABLET BY MOUTH EVERY DAY Tamsulosin HCl - 0.4 MG Oral CapsuleTAKE 1 CAPSULE BY MOUTH TWICE DAILY Ventolin HFA 108 (90 Base) MCG/ACT Inhalation Aerosol SolutionINHALE 2 PUFFS BY MOUTH EVERY 4 HOURSAS NEEDED FOR COUGH / DYSPNEA Patient did [...] negative for complaint. Vitals Vital Signs Recorded: [id number] 02:51PM Heart Rate77, L Radial Ciyuqkcj903, LUE, Sitting Lpdfqilhx45, LUE, Sitting Height6 ft Ysstca805 lb BMI Xlweesihsz16.87 kg/m2 BSA Calculated2.02 Tobacco Useb) No Fall [...] MD; Apr 29 2021 5:34PM EST (Author) [facility] TouchworksTobacco Screening.on [id number] risk assessmenta) No falls within the last yearMP-[facility] DO Work Phone: Tobacco use status CPHSb) NoMP-[facility] [place] DO Work Phone: MRI IAC WO/Won [id number] IAC WO/WMRN: [id number] Patient Name: MARY MCADAMS STUDY: MRI IAC WO/W; 12/21/2018 2:15 pm INDICATION: CPA lesion. COMPARISON: None. ACCESSION NUMBER(S): [id number] ORDERING CLINICIAN: ERIN BAUTISTA TECHNIQUE: T2, FLAIR, [...] abnormality. Electronically signed by: PASHA DEGROOT MD, PHDOlmsted Medical Center Vital Signs Date TimeVital SignValuePerforming [id number] 16:00-0400Inhaled oxygen flow rate3 L/minBenjamin Ball DO Work Phone: 1419)[address] [place], [place] 2078110-08-2025 12:05-0400 Heart rate79 /minBenjamin Ball DO Work Phone: 1(419)[address] [place], [place] 2078110-08-2025 12:05-0400 Respiratory rate20 /minBenjamin Ball DO Work Phone: 1(419)[address] [place], [place] 2078110-08-2025 09:45-0400 Body kglqqvvvedf95 [degF]Adam Ball DO Work Phone: 1419)[address] [place], [place] 2078110-08-2025 09:45-0400 Diastolic blood mrbhevcq87 mm[Hg]Adam Ball DO Work Phone: 1(419)[address] [place], [place] 2078110-08-2025 09:45-0400 SaO2% (BldA) [Mass fraction]100 %Adam Ball DO Work Phone: 1(419)[address] [place], [place] 2078110-08-2025 09:45-0400 Systolic blood vbhojsok935 mm[Hg]Adam Ball DO Work Phone: 1419)[address] [place], [place] 2078110-08-2025 06:04-0400 Body usyucj31.4 kgBenjamin Ball DO Work Phone: 1419)[address] [place], [place] 2078110-06-2025 15:07-0400 Body yscyth142.88 cmBenjamin Ball DO Work Phone: 1419)[address] [place], [place] 2078110-05-2025 02:38-0400 Diastolic blood psjmvagv54 mm[Hg]Adam Ball DO Work Phone: 1419)[address] [place], [place] 2078110-05-2025 02:38-0400 Heart rate87 /minBenjamin Ball DO Work Phone: 1419)[address] [place], [place] 2078110-05-2025 02:38-0400 Inhaled oxygen flow rate3 L/minBenjamin Ball DO Work Phone: 1419)[address] [place], [place] 2078110-05-2025 02:38-0400 Respiratory rate22 /minBenjamin Ball DO Work Phone: 1419)[address] [place], [place] 2078110-05-2025 02:38-0400 SaO2% (BldA) [Mass fraction]100 %Adam Ball DO Work Phone: 1(419)[address] [place], [place] 2078110-05-2025 02:38-0400 Systolic blood agcakrxg985 mm[Hg]Adam Ball DO Work Phone: 1419)[address] [place], [place] 2078110-05-2025 01:45-0400 Body yzuerbmhrxg27.6 [degF]Adam Ball DO Work Phone: 1419)[address] [place], [place] 2078110-04-2025 21:09-0400 Body cytvja292.88 cmBenjamin Ball DO Work Phone: 1(419)[address] [place], [place] 2078110-04-2025 21:09-0400 Body ypgtnd55.3 kgBenjamin Ball DO Work Phone: 1(419)[address] [place], [place] 2078109-09-2025 13:15-0400 Body mdjbsi899.88 cmBenjamin Ball DO Work Phone: 1419)[address] [place], [place] 2078109-09-2025 13:15-0400 Body mass index (BMI) [Ratio]18.4 kg/r5Bhxloypa Ball DO Work Phone: 1(419)[address] [place], [place] 2078109-09-2025 13:15-0400 Body zaxszu47.68 kgBenjamin Ball DO Work Phone: 1419)[address] [place], [place] 2078109-09-2025 13:15-0400 Diastolic blood mm[Hg]Adam Ball DO Work Phone: 1419)[address] [place], [place] 2078109-09-2025 13:15-0400 Heart rate92 /minBenjamin Ball DO Work Phone: 1419)[address] [place], [place] 2078109-09-2025 13:15-0400 Respiratory rate20 /minBenjamin Ball DO Work Phone: [facility]09-09-2025 13:15-0400 SaO2% (BldA) [Mass fraction]97 %Adam Ball DO Work Phone: [facility]09-09-2025 13:15-0400 Systolic blood uhpvhqsy238 mm[Hg]Adam Del Valle DO Work Phone: [facility]09-05-2025 11:12-0400 Body boxfdi985.9 cmMaya Fuentes [facility]09-05-2025 11:12-0400Body mass index (BMI) [Ratio]18.58 kg/t7LukuybMaya Fuentes [facility]09-05-2025 11:12-0400Body yiexhx87.14 kgMaya GutierrezPremier Health [facility]09-05-2025 11:12-0400Diastolic blood gbcvvnfu20 mm[Hg]Maya Fuentes [facility]09-05-2025 11:12-0400 Heart rate92 /Nida Fuentes [facility]09-05-2025 11:12-0400Systolic blood mm[Hg]Maya Fuentes [facility]09-03-2025 08:48-0400Body efwpof881.9 cmNing Godoy DATA CENTER ARCHITECT-STREET ENGINEER Work Phone: [facility]09-03-2025 08:48-0400 Diastolic blood jphowwbf89 mm[Hg]Ning Godoy [employer] ARCHIT[employer]RE[employer] ENGINEER Work Phone: [facility]09-03-2025 08:48-0400 Heart rate91 /Danita Godoy [employer] C[employer] ARCHITECT[employer]STREET ENGINEER Work Phone: [facility]09-03-2025 08:48-0400 Systolic blood mopcijbd63 mm[Hg]Ning Godoy [employer] ARCHITECT[employer]REET ENGINEER Work Phone: [facility]08-28-2025 16:00-0400 Body xppmcpepwyt43.6 [degF]Adam Ball DO Work Phone: 1(107)[address] [place], [place] 2078108-28-2025 16:00-0400 Diastolic blood ljzhuidz92 mm[Hg]Adam Ball DO Work Phone: 1(450)[address] [place], [place] 2078108-28-2025 16:00-0400 Heart rate98 /minBenjamin Ball DO Work Phone: 1(845)[address] [place], [place] 2078108-28-2025 16:00-0400 Inhaled oxygen flow rate3 L/minBenjamin Ball DO Work Phone: 1(230)[address] [place], [place] 2078108-28-2025 16:00-0400 Respiratory rate18 /minBenjamin Ball DO Work Phone: 1(116)[address] [place], [place] 2078108-28-2025 16:00-0400 SaO2% (BldA) [Mass fraction]97 %Adam Ball DO Work Phone: 1(466)[address] [place], [place] 2078108-28-2025 16:00-0400 Systolic blood wqskxywn468 mm[Hg]Adam Ball DO Work Phone: 1(383)[address] [place], [place] 2078108-28-2025 05:58-0400 Body .2 kgBenjamin Ball DO Work Phone: 1(200)[address] [place], [place] 2078108-25-2025 14:20-0400 Body amxdvl469.88 cmBenjamin Ball DO Work Phone: 1(357)[address] [place], [place] 2078108-24-2025 14:00-0400 Diastolic blood vatbxyif80 mm[Hg]Adam Ball DO Work Phone: 1(220)[address] [place], [place] 2078108-24-2025 14:00-0400 Heart rate85 /minBenjamin Ball DO Work Phone: 1(255)[address] [place], [place] 2078108-24-2025 14:00-0400 Inhaled oxygen flow rate4 L/minBenjamin Ball DO Work Phone: 1(555)[address] [place], [place] 2078108-24-2025 14:00-0400 Respiratory rate20 /minBenjamin Ball DO Work Phone: 1(419)[address] [place], [place] 2078108-24-2025 14:00-0400 SaO2% (BldA) [Mass fraction]100 %Adam Ball DO Work Phone: 1(419)[address] [place], [place] 2078108-24-2025 14:00-0400 Systolic blood ngykjuod660 mm[Hg]Adam Ball DO Work Phone: 1(419)[address] [place], [place] 2078108-24-2025 11:18-0400 Inhaled oxygen oetwxqmwosngy26 %Adam Ball DO Work Phone: 1(419)[address] [place], [place] 2078108-24-2025 01:00-0400 Inhaled oxygen qclpvqcvdsyus22 %Adam Ball DO Work Phone: 1(419)[address] [place], [place] 2078108-23-2025 22:04-0400 Body ubdbkp318.88 cmBenjamin Ball DO Work Phone: 1(419)[address] [place], [place] 2078108-23-2025 22:04-0400 Body zrzhnhjgaws86.3 [degF]Adam Ball DO Work Phone: 1(419)[address] [place], [place] 2078108-23-2025 22:04-0400 Body hjylit89 kgBenjamin Ball DO Work Phone: 1419)[address] [place], [place] 2078107-08-2025 08:58-0400 Body qqujah227.88 cmBenjamin Ball DO Work Phone: 1419)[address] [place], [place] 2078107-08-2025 08:58-0400 Body mass index (BMI) [Ratio]18.3 kg/e4Rkondjje Ball DO Work Phone: 1(419)[address] [place], [place] 2078107-08-2025 08:58-0400 Body rvlgon03.34 kgBenjamin Ball DO Work Phone: 1(419)[address] [place], [place] 2078107-08-2025 08:58-0400 Diastolic blood alginpwu84 mm[Hg]Adam Ball DO Work Phone: 1(419)[address] [place], [place] 2078107-08-2025 08:58-0400 Heart rate98 /minBenjamin Ball DO Work Phone: 1(419)483-80[facility]07-08-2025 08:58-0400 Respiratory rate14 /minBenjamin Ball DO Work Phone: 1(839)243-[address] [place], [place] 3202407-08-2025 08:58-0400 SaO2% (BldA) [Mass fraction]99 %Adam Ball DO Work Phone: 1(218)176-[address] [place], [place] 3202407-08-2025 08:58-0400 Systolic blood poiltdro212 mm[Hg]Adam Ball DO Work Phone: 1(932)662-[address] [place], [place] 3202407-01-2025 16:00-0400 Diastolic blood kcwtysrl48 mm[Hg]Adam Ball DO Work Phone: 1(748)[address]07-01-2025 16:00-0400 Heart qdsm332 /minBenjamin Ball DO Work Phone: 1(019)[address]07-01-2025 16:00-0400 Inhaled oxygen flow rate2 L/minBenjamin Ball DO Work Phone: 1(024)[address]07-01-2025 16:00-0400 Respiratory rate18 /minBenjamin Ball DO Work Phone: 1(093)858-[address] [place], [place] 3202407-01-2025 16:00-0400 SaO2% (BldA) [Mass fraction]100 %Adam Ball DO Work Phone: 1(868)751-[address] [place], [place] 3202407-01-2025 16:00-0400 Systolic blood tzyuxvzp197 mm[Hg]Adam Ball DO Work Phone: 1(465)262-[address] [place], [place] 3202407-01-2025 07:54-0400 Body vcsqqyniwvb88.3 [degF]Adam Ball DO Work Phone: 1(246)[address]07-01-2025 06:00-0400 Body rfacdn01.8 kgBenjamin Ball DO Work Phone: 1(146)[address]06-30-2025 14:36-0400 Body tyhgow733.88 cmBenjamin Ball DO Work Phone: [facility]06-30-2025 03:30-0400 Diastolic blood ihkluhtz49 mm[Hg]Adam Ball DO Work Phone: 1(029)435-[address] [place], [place] 3202406-30-2025 03:30-0400 Heart hdzr971 /minBenjamin Ball DO Work Phone: 1(074)[address]06-30-2025 03:30-0400 Inhaled oxygen flow rate2 L/minBenjamin Ball DO Work Phone: 1(052)[address]06-30-2025 03:30-0400 Respiratory rate24 /minBenjamin Ball DO Work Phone: 1(088)[address] [place], [place] 2078106-30-2025 03:30-0400 SaO2% (BldA) [Mass fraction]98 %Adam Ball DO Work Phone: 1(147)[address]06-30-2025 03:30-0400 Systolic blood mm[Hg]Adam Ball DO Work Phone: 1(793)[address]06-30-2025 02:37-0400 Body ridyfqsmvwq41.6 [degF]Adam Ball DO Work Phone: 1(762)[address] [place], [place] 2078106-29-2025 22:44-0400 Body .88 cmBenjamin Ball DO Work Phone: 1(880)[address] [place], [place] 2078106-29-2025 22:44-0400 Body .5 kgBenjamin Ball DO Work Phone: 1(392)[address]06-19-2025 11:23-0400 Body ycgdzk410.4 cmShannon Gonzalez MD Work Phone: [facility]06-19-2025 11:23-0400 Body mass index (BMI) [Ratio]18.07 kg/j2AyvmccShannon Gonzalez MD Work Phone: [facility]06-19-2025 11:23-0400 Body dpialb95.14 kgShannon Gonzalez MD Work Phone: [facility]06-19-2025 11:23-0400 Diastolic blood mm[Hg]Shannon Gonzalez MD Work Phone: [facility]06-19-2025 11:23-0400 Heart rate88 /Deirdre Gonzalez MD Work Phone: [facility]06-19-2025 11:23-0400 Systolic blood ymwnycyz250 mm[Hg]Shannon Gonzalez MD Work Phone: [facility]04-21-2025 14:55-0400 Body yrsrtq646.88 cmBenjamin Ball DO Work Phone: 1(478)595-30[facility]04-21-2025 14:55-0400 Body mass index (BMI) [Ratio]18.8 kg/i8Wvlvqerb Ball DO Work Phone: 1(522)879-[address] [place], [place] 3202404-21-2025 14:55-0400 Body hlfryr15.16 kgBenjamin Ball DO Work Phone: 1(350)091-91[facility]04-21-2025 14:55-0400 Diastolic blood nhzdalkh92 mm[Hg]Adam Ball DO Work Phone: 1(918)438-52[facility]04-21-2025 14:55-0400 Heart gpnd214 /minBenjamin Ball DO Work Phone: 1(789)044-[facility]04-21-2025 14:55-0400 Respiratory rate12 /minBenjamin Ball DO Work Phone: 1(831)993-80[facility]04-21-2025 14:55-0400 SaO2% (BldA) [Mass fraction]94 %Adam Ball DO Work Phone: 1(099)145-87[facility]04-21-2025 14:55-0400 Systolic blood qqosntvq810 mm[Hg]Adam Ball DO Work Phone: 1(175)661-19[facility]03-13-2025 10:08-0400 Body jxkyav744.4 cmJennifer [facility] 07-25-2024 10:08-0400Body mass index (BMI) [Ratio]18.6 kg/m7Udqedfzf [facility]03-13-2025 10:08-0400Body ivcxvy79.96 kg Harriet [facility]03-13-2025 10:08-0400 Diastolic blood vbrukozq19 mm[Hg][facility]03-13-2025 10:08-0400Heart cjpd062 /minHarriet [facility]03-13-2025 10:08-0400Systolic blood jpvokznl779 mm[Hg] [facility]03-11-2025 16:49-0400Body ylcmtw749.9 cmDennis Furlong DO Work Phone: [facility]03-11-2025 16:49-0400Body mass index (BMI) [Ratio]18.88 kg/f1Xwmphb Furlong DO Work Phone: [facility]03-11-2025 16:49-0400Body iawjhwtapnl73.7 [degF]Edward Furlong DO Work Phone: [facility]03-11-2025 16:49-0400Body igyqhg63.14 kgDennis Furlong DO Work Phone: [facility]03-11-2025 16:49-0400Diastolic blood vcyhjjke93 mm[Hg]Edward Furlong DO Work Phone: [facility]03-11-2025 16:49-0400Heart rate 76 /minDennis Furlong DO Work Phone: [facility]03-11-2025 16:49-0400 Respiratory rate18 /minDennis Furlong DO Work Phone: [facility]03-11-2025 16:49-5721RcP7% (BldA) [Mass fraction]97 %Edward Furlong DO Work Phone: [facility] [place] Scwtiq91-73-9661 16:49-0400Systolic blood mm[Hg]Edward Furlong DO Work Phone: [facility]03-04-2025 15:02-0500Body adajxpsycss22.5 [degF]Edward Furlong DO Work Phone: [facility]03-04-2025 15:02-0500Body qsaejc74.78 kgBullnis Furlong DO Work Phone: [facility]03-04-2025 15:02-0500Diastolic blood mm[Hg]Edward Furlong DO Work Phone: [facility]03-04-2025 15:02-0500Heart rate 80 /minDgarryis Furlong DO Work Phone: [facility]03-04-2025 15:02-0500 Respiratory rate20 /minDennis Furlong DO Work Phone: [facility]03-04-2025 15:02-3210QjP2% (BldA) [Mass fraction]94 %Edward Furlong DO Work Phone: [facility]03-04-2025 15:02-0500Systolic blood mm[Hg]Edward Furlong DO Work Phone: [facility]03-03-2025 15:06-0500Body snaooc790.88 cmBenjamin Ball DO Work Phone: [facility]03-03-2025 15:06-0500 Diastolic blood oxxpwhsc94 mm[Hg]Adam Ball DO Work Phone: [facility]03-03-2025 15:06-0500 Heart rate85 /minBenjamin Ball DO Work Phone: [address] [place], [place] 2167903-03-2025 15:06-0500 Inhaled oxygen flow rate2 L/minBenjamin Ball DO Work Phone: [facility]03-03-2025 15:06-0500 Respiratory rate20 /minBenjamin Ball DO Work Phone: [facility]03-03-2025 15:06-0500 SaO2% (BldA) [Mass fraction]78 %Adam Ball DO Work Phone: [facility]03-03-2025 15:06-0500 Systolic blood hzrymerw47 mm[Hg]Adam Ball DO Work Phone: [facility]02-26-2025 15:49-0500 Body cgiyipilpvc90.59 [degF]Edward Furlong DO Work Phone: [facility] Wyiwnn00-19-7430 15:49-0500Body ukyzmr26.96 kgDennis Furlong DO Work Phone: [facility] Mdnxoa13-66-1535 15:49-0500Diastolic blood ltzafesc04 mm[Hg]Edward Furlong DO Work Phone[facility] Tqzdbd11-40-7916 15:49-0500Heart rate 84 /minDennis Furlong DO Work Phone: [facility] Xmvbnr85-04-0683 15:49-0500 Respiratory rate18 /minDennis Furlong DO Work Phone: [facility] Yxwldb68-46-4824 15:49-8086VkM1% (BldA) [Mass fraction]97 %Edward Furlong DO Work Phone: [facility] Icnhez26-89-9957 15:49-0500Systolic blood gruhxjgq879 mm[Hg]Edward Furlong DO Work Phone: [facility] Ngwawl94-72-2429 12:05-0500Heart rate 91 /minBenjamin Ball DO Work Phone: 1(723)398-[address] [place], [place] 3202402-25-2025 12:05-0500 Respiratory rate20 /minBenjamin Ball DO Work Phone: 1(079)[address] [place], [place] 2078102-25-2025 08:01-0500 Body ppwhjqjauys08.1 [degF]Adam Ball DO Work Phone: 1(752)[address] [place], [place] 2078102-25-2025 08:01-0500 Diastolic blood mbaokhld10 mm[Hg]Adam Ball DO Work Phone: 1(578)[address]02-25-2025 08:01-0500 SaO2% (BldA) [Mass fraction]96 %Adam Ball DO Work Phone: 1(548)[address] [place], [place] 2078102-25-2025 08:01-0500 Systolic blood akkmtxsb012 mm[Hg]Adam Ball DO Work Phone: 1(532)[address] [place], [place] 2078102-25-2025 05:36-0500 Body iknmas77.9 kgBenjamin Ball DO Work Phone: 1(739)[address] [place], [place] 2078102-23-2025 17:38-0500 Inhaled oxygen flow rate2 L/minBenjamin Ball DO Work Phone: 1(113)[address] [place], [place] 2078102-20-2025 15:38-0500 Body pbeibc703.88 cmBenjamin Ball DO Work Phone: 1(273)[address] [place], [place] 2078102-19-2025 23:10-0500 Diastolic blood dwiqyrzy40 mm[Hg]Adam Ball DO Work Phone: 1(893)417-[address] [place], [place] 3202402-19-2025 23:10-0500 Heart rate94 /minBenjamin Ball DO Work Phone: 1(152)[address] [place], [place] 2078102-19-2025 23:10-0500 Respiratory rate18 /minBenjamin Ball DO Work Phone: 1(010)[facility] [place], [place] 3202402-19-2025 23:10-0500 SaO2% (BldA) [Mass fraction]97 %Adam Ball DO Work Phone: [facility]02-19-2025 23:10-0500 Systolic blood rlbimxtv345 mm[Hg]Adam Ball DO Work Phone: 1(405)426-31[facility]02-19-2025 21:14-0500 Inhaled oxygen flow rate2 L/minBenjamin Ball DO Work Phone: 1(792)604-07[facility]02-19-2025 18:33-0500 Body khuygp210.88 cmBenjamin Ball DO Work Phone: 1(054)169-82[facility]02-19-2025 18:33-0500 Body uttqvcqlgoe34.7 [degF]Adam Ball DO Work Phone: 1(189)914-92[facility]02-19-2025 18:33-0500 Body smqspy42.03 kgBenjamin Ball DO Work Phone: 1(500)550-31[facility]01-29-2025 13:35-0500 Diastolic blood mm[Hg][facility] [address] [place] [address] 06-12-2024 13:35-0500Heart rate92 /minEly [address] [place] [address] 06-12-2024 13:35-0500Systolic blood mm[Hg][address]01-20-2025 14:43-0500Body wnlzhe273.88 cmBenjamin Ball DO Work Phone: 1(905)199-24[facility]01-20-2025 14:43-0500 Body mass index (BMI) [Ratio]21.2 kg/e9Fmqjfumz Ball DO Work Phone: 1(994)609-36[facility]01-20-2025 14:43-0500 Body rmfycl48.21 kgBenjamin Ball DO Work Phone: 1(529)000-68[facility]01-20-2025 14:43-0500 Diastolic blood qjpsofkb89 mm[Hg]Adam Ball DO Work Phone: 1(294)353-16[facility]01-20-2025 14:43-0500 Heart hjrc699 /minBenjamin Ball DO Work Phone: [facility]01-20-2025 14:43-0500 Respiratory rate14 /minBenjamin Ball DO Work Phone: 1(085)692-99[facility]01-20-2025 14:43-0500 Systolic blood hpnuqvpf919 mm[Hg]Adam Ball DO Work Phone: 1(310)471-47[facility]01-10-2025 13:22-0500 Body fionra805.9 cmShannon Gonzalez MD Work Phone: 1(701)652-[address] [place], [place] 7182601-10-2025 13:22-0500 Body mass index (BMI) [Ratio]21.18 kg/j5UwflpfShannon Gonzalez MD Work Phone: 1(718)[address]01-10-2025 13:22-0500 Body yichvz50.85 kgShannon Gonzalez MD Work Phone: 1(254)[address]01-10-2025 13:22-0500 Diastolic blood wlwrjbaw67 mm[Hg]Shannon Gonzalez MD Work Phone: 1(256)[address]01-10-2025 13:22-0500 Heart rate68 /Deirdre Gonzalez MD Work Phone: 1(964)[address]01-10-2025 13:22-0500 Systolic blood gynxxhma41 mm[Hg]Shannon Gonzalez MD Work Phone: 2(832)[address]12-18-2024 11:40-0500 Body cutgnf527.88 cmBenjamin Ball DO Work Phone: [facility]12-18-2024 11:40-0500 Body mass index (BMI) [Ratio]21.7 kg/l8Bvndfxye Ball DO Work Phone: 1(808)741-37[facility]12-18-2024 11:40-0500 Body mxscdreucvl02.5 [degF]Adam Ball DO Work Phone: 1(505)917-76[facility]12-18-2024 11:40-0500 Body obvhvk62.57 kgBenjamin Ball DO Work Phone: [facility]12-18-2024 11:40-0500 Diastolic blood vlmohryu77 mm[Hg]Adam Ball DO Work Phone: [facility]12-18-2024 11:40-0500 Heart rate46 /minBenjamin Ball DO Work Phone: [facility]12-18-2024 11:40-0500 SaO2% (BldA) [Mass fraction]90 %Adam Ball DO Work Phone: [facility]12-18-2024 11:40-0500 Systolic blood yeafwqsz23 mm[Hg]Adam Ball DO Work Phone: [facility]11-13-2024 15:22-0500 Body wmelkh074.9 cmShannon Gonzalez MD Work Phone: [facility]11-13-2024 15:22-0500 Body mass index (BMI) [Ratio]20.61 kg/n1OfdocdShannon Gonzalez MD Work Phone: [facility]11-13-2024 15:22-0500 Body undbrv97.95 kgShannon Gonzalez MD Work Phone: [facility]11-13-2024 15:22-0500 Diastolic blood xnpxuxwi25 mm[Hg]Shannon Gonzalez MD Work Phone: [address] [place], [place] 9704211-13-2024 15:22-0500 Heart rate71 /minShannon Gonzalez MD Work Phone: 1(072)805-[address] [place], [place] 7182611-13-2024 15:22-0500 Systolic blood rvuosuuq140 mm[Hg]Shannon Gonzalez MD Work Phone: [address] [place], [place] 9704211-11-2024 14:13-0500 Body uhynum563.88 cmBenjamin Ball DO Work Phone: [facility]11-11-2024 14:13-0500 Body mass index (BMI) [Ratio]20.5 kg/t7Hedfvhko Ball DO Work Phone: 1(500)[address] [place], [place] 2078111-11-2024 14:13-0500 Body ulnoxw65.71 kgBenjamin Ball DO Work Phone: 1(348)[address] [place], [place] 2078111-11-2024 14:13-0500 Diastolic blood spgygxbj14 mm[Hg]Adam Ball DO Work Phone: 1(396)[address] [place], [place] 2078111-11-2024 14:13-0500 Heart rate86 /minBenjamin Ball DO Work Phone: 1(010)[address] [place], [place] 2078111-11-2024 14:13-0500 SaO2% (BldA) [Mass fraction]94 %Adam Ball DO Work Phone: 1(682)[address] [place], [place] 2078111-11-2024 14:13-0500 Systolic blood zzyybmrd06 mm[Hg]Adam Ball DO Work Phone: 1(753)[address] [place], [place] 2078111-06-2024 14:50-0500 Body tultsh951.88 cmDO Adam Ball Work Phone: 1(620)[address] [place], [place] 2078111-06-2024 12:05-0500 Diastolic blood mmihmybc59 mm[Hg]DO Adam Ball Work Phone: 1(073)[address] [place], [place] 2078111-06-2024 12:05-0500 Systolic blood whxedwrf96 mm[Hg]DO Adam Ball Work Phone: 1(255)[address] [place], [place] 2078111-06-2024 12:00-0500 Body vaeeodwcsrg26.7 [degF]DO Adam Ball Work Phone: 1(420)[address] [place], [place] 2078111-06-2024 12:00-0500 Heart rate71 /minDO Adam Ball Work Phone: 1(700)[address] [place], [place] 2078111-06-2024 12:00-0500 Inhaled oxygen flow rate2 L/minDO Adam Ball Work Phone: 1(530)[address] [place], [place] 2078111-06-2024 12:00-0500 Respiratory rate18 /minDO Adam Ball Work Phone: 1(789)[address] [place], [place] 2078111-06-2024 12:00-0500 SaO2% (BldA) [Mass fraction]100 %DO Adam Ball Work Phone: 1(987)[address]11-06-2024 06:00-0500 Body cxnpni25 kgDO Adam Ball Work Phone: 1(467)[address] [place], [place] 2078110-25-2024 13:27-0400 Body tpbuqm306.88 cmDO Adam Ball Work Phone: 1(781)[address] [place], [place] 2078110-25-2024 13:27-0400 Body mass index (BMI) [Ratio]21.9 kg/m2DO Adam Ball Work Phone: 1(229)[address] [place], [place] 2078110-25-2024 13:27-0400 Body cjqyab25.59 kgDO Adam Ball Work Phone: 1(470)[address] [place], [place] 2078110-25-2024 13:27-0400 Diastolic blood eabezahd30 mm[Hg]DO Adam Ball Work Phone: 1(231)[address] [place], [place] 2078110-25-2024 13:27-0400 Heart rate86 /minDO Adam Ball Work Phone: 1(555)[address] [place], [place] 2078110-25-2024 13:27-0400 Respiratory rate12 /minDO Adam Ball Work Phone: 1(551)[address] [place], [place] 2078110-25-2024 13:27-0400 SaO2% (BldA) [Mass fraction]92 %DO Adam Ball Work Phone: 1(120)[address] [place], [place] 2078110-25-2024 13:27-0400 Systolic blood ecpbjvkn764 mm[Hg]DO Adam Ball Work Phone: 1(638)[address] [place], [place] 2078110-18-2024 15:58-0400 Diastolic blood wtqotwjg53 mm[Hg]DO Adam Ball Work Phone: 1(408)[address] [place], [place] 2078110-18-2024 15:58-0400 Heart rate70 /minDO Adam Ball Work Phone: 1(959)[address] [place], [place] 2078110-18-2024 15:58-0400 Inhaled oxygen flow rate2 L/minDO Adam Ball Work Phone: 1(621)[address] [place], [place] 2078110-18-2024 15:58-0400 Respiratory rate20 /minDO Adam Ball Work Phone: 1(937)[address] [place], [place] 2078110-18-2024 15:58-0400 SaO2% (BldA) [Mass fraction]98 %DO Adam Ball Work Phone: 1419)[address] [place], [place] 2078110-18-2024 15:58-0400 Systolic blood mkllvwse870 mm[Hg]DO Adam Ball Work Phone: 1(604)[address] [place], [place] 2078110-18-2024 15:25-0400 Body .88 cmDO Adam Ball Work Phone: 1(739)[address] [place], [place] 2078110-18-2024 09:11-0400 Body rysjxohxmdh29.8 [degF]DO Adam Ball Work Phone: 1(022)[address] [place], [place] 2078110-18-2024 05:30-0400 Body mhsdeo11.4 kgDO Adam Ball Work Phone: 1(494)[address] [place], [place] 2078110-16-2024 23:38-0400 Inhaled oxygen flow rate2 L/minDO Adam Ball Work Phone: 1(453)[address] [place], [place] 2078110-16-2024 23:38-0400 Respiratory rate22 /minDO Adam Ball Work Phone: 1(653)[address] [place], [place] 2078110-16-2024 23:38-0400 SaO2% (BldA) [Mass fraction]94 %DO Adam Ball Work Phone: 1(771)[address] [place], [place] 2078110-16-2024 23:36-0400 Diastolic blood mm[Hg]DO Adam Ball Work Phone: 1(884)[address] [place], [place] 2078110-16-2024 23:36-0400 Heart raft160 /minDO Adam Ball Work Phone: 1(845)[facility] [place], [place] 3202410-16-2024 23:36-0400 Systolic blood giwfnewu633 mm[Hg]DO Adam Ball Work Phone: [facility]10-16-2024 21:46-0400 Body cvbhxa308.88 cmDO Adam Altheos Work Phone: [facility]10-16-2024 21:46-0400 Body vbgpluzvkpo91.3 [degF]DO Adam Ball Work Phone: [facility]10-16-2024 21:46-0400 Body jrgbed38.9 kgDO Adam Ball Work Phone: [facility]10-08-2024 14:22-0400 Body junehn056.9 Mickeyning [facility]Prem[facility] 02-20-2024 14:22-0400Body mass index (BMI) [Ratio]22.92 kg/[facility]10-08-2024 14:220400[address]-08-2024 14:22-0400Diastolic blood ssybpxcl95 mm[Hg]Olivia [facility] 02-20-2024 14:22-0400Heart grjm757 /[facility]10-08-2024 14:22-0400Systolic blood xbfatlyx109 mm[Hg]Olivia [facility]10-02-2024 14:25-0400Body height 182.88 cmDO Adam Altheos Work Phone: [facility]10-02-2024 14:25-0400 Body mass index (BMI) [Ratio]23.1 kg/m2DO Adam Altheos Work Phone: [facility]10-02-2024 14:25-0400 Body ojrxmf61.16 kgDO Adam Altheos Work Phone: [facility]10-02-2024 14:25-0400 Diastolic blood mm[Hg]DO Adam Ball Work Phone: 1(419)483-[address] [place], [place] 3202410-02-2024 14:25-0400 Heart xssz012 /minDO Adam Ball Work Phone: 1(307)140-[address] [place], [place] 3202410-02-2024 14:25-0400 Respiratory rate20 /minDO Adam Ball Work Phone: 1(274)523-[address] [place], [place] 3202410-02-2024 14:25-0400 Systolic blood nzijgxva417 mm[Hg]DO Adam Ball Work Phone: 1(151)[address]09-22-2024 16:00-0400 Inhaled oxygen flow rate2 L/minDO Adam Ball Work Phone: 1(372)[address]09-22-2024 13:35-0400 Heart rate86 /minDO Adam Ball Work Phone: 1(380)[address]09-22-2024 13:35-0400 Respiratory rate18 /minDO Adam Ball Work Phone: 1(039)[address] [place], [place] 2078109-22-2024 12:40-0400 Body etcchhfezop14.5 [degF]DO Adam Ball Work Phone: 1(183)[address] [place], [place] 2078109-22-2024 12:40-0400 Diastolic blood naptfoky22 mm[Hg]DO Adam Ball Work Phone: 1(578)[address]09-22-2024 12:40-0400 SaO2% (BldA) [Mass fraction]98 %DO Adam Ball Work Phone: 1(581)[address]09-22-2024 12:40-0400 Systolic blood dljekuqe673 mm[Hg]DO Adam Ball Work Phone: 1(273)[address] [place], [place] 2078109-22-2024 05:54-0400 Body .3 kgDO Adam Ball Work Phone: 1(245)[address]09-20-2024 09:43-0400 Body cknnni030.88 cmDO Adam Ball Work Phone: 1(641)[address]05-31-2024 13:35-0400 Body yxhdtm839.9 cmSteven Alvares MD Work Phone: [facility]05-31-2024 13:35-0400 Body mass index (BMI) [Ratio]23.06 kg/f1GgpqwphSteven Alvares MD Work Phone: [facility]05-31-2024 13:35-0400 Body jrsida63.11 kgSteven Alvares MD Work Phone: 1(855)932-[address] [place], [place] 7182605-31-2024 13:35-0400 Diastolic blood mm[Hg]Steven Alvares MD Work Phone: 1(072)669-[address] [place], [place] 7182605-31-2024 13:35-0400 Heart rate72 /Cheryl Alvares MD Work Phone: [address] [place], [place] 9704205-31-2024 13:35-0400 Systolic blood opzqhtbn369 mm[Hg]Steven Alvares MD Work Phone: 1(547)226-[address] [place], [place] 7182604-01-2024 15:21-0400 Blood Pressure LocationClinton NORMAN [facility]04-01-2024 15:21-0400Diastolic blood xehmtlni69 mm[Hg]Clinton NORMAN [facility]04-01-2024 15:21-0400Heart rate80 /minPatricjulianna NORMAN [facility]04-01-2024 15:21-0400Respiratory rate16 /minPatrick EMERSON [facility]04-01-2024 15:21-0400Systolic blood jbeggvom347 mm[Hg]Clinton NORMAN [facility]10-18-2023 14:00-0400Body zejmfz087.88 cmBenjamin Ball Other [facility] [employer] Other 10-18-2023 14:00-0400Body mass index (BMI) [Ratio] 23.22 kg/e4Hbjhyssx Ball Other [facility] Other 10-18-2023 14:00-0400Body .66 kgBenjamin Ball Other [facility] Other 10-18-2023 14:00-0400Diastolic blood bchszkhy36 mm[Hg] Adam Ball Other [facility] Other 10-18-2023 14:00-0400Respiratory rate20 /minBenjamin Ball Other [facility] Other 10-18-2023 14:00-0400Systolic blood hqpydbwa022 mm[Hg] Adam Ball Other [facility] Other 07-17-2023 13:10-0400Blood Pressure LocationPatrick NORMAN [facility]07-17-2023 13:10-0400Diastolic blood tcfzuans39 mm[Hg]Clinton NORMAN [facility]07-17-2023 13:10-0400Heart rate68 /minPatrick NORMAN [facility]07-17-2023 13:10-0400Respiratory rate16 /minPatrick NORMAN [facility] [place] [address]-17-2023 13:10-0400Systolic blood vgsadamx547 mm[Hg]Clinton NORMAN [facility]04-20-2023 12:30-0400Body jdpehj189.88 cmBenjamin Ball Other [employer] Other 04-20-2023 12:30-0400Body mass index (BMI) [Ratio] 22.97 kg/n8Girubzcc Ball Other [employer] Other 04-20-2023 12:30-0400Body ibdvsy88.84 kgBenjamin Ball Other [facility] [employer] Other 04-20-2023 12:30-0400Diastolic blood unzhoosb97 mm[Hg] Adam Ball Other [employer] Other 04-20-2023 12:30-0400Respiratory rate20 /minBenjamin Ball Other [employer] Other 04-20-2023 12:30-0400Systolic blood fdkqouja295 mm[Hg] Adam Ball Other [facility] [employer] Other [id number] 12:08-0400Blood Pressure LocationPatrick NORMAN [facility]10-03-2022 12:08-0400Diastolic blood mm[Hg]Clinton NORMAN [facility]10-03-2022 12:08-0400Heart rate80 /minPatrick Symform [facility]10-03-2022 12:08-0400Respiratory rate16 /minPatrick Symform [facility]10-03-2022 12:08-0400Systolic blood ywzppvvl114 mm[Hg]Clinton NORMAN [facility]06-14-2022 11:23-0400Diastolic blood aqkujjfp27 mm[Hg]DO Adam Ball Work Phone: 1(813)292-12[facility]06-14-2022 11:23-0400 Heart rate62 /minDO Adam Ball Work Phone: 1(215)098-08[facility]06-14-2022 11:23-0400 Respiratory rate20 /minDO Adam Ball Work Phone: 1(888)871-68[facility]06-14-2022 11:23-0400 SaO2% (BldA) [Mass fraction]94 %DO Adam Ball Work Phone: 1(590)012-[facility]06-14-2022 11:23-0400 Systolic blood pbudxtbe513 mm[Hg]DO Adam Ball Work Phone: 1(910)507-75[facility]06-14-2022 09:24-0400 Body svcvxy242.88 cmDO Adam Ball Work Phone: 1(895)251-63[facility]06-14-2022 09:24-0400 Body mass index (BMI) [Ratio]23.7 kg/m2DO Adam Ball Work Phone: 1(291)537-31[facility]06-14-2022 09:24-0400 Body .5 [degF]DO Adam Ball Work Phone: 1(663)736-47[facility]06-14-2022 09:24-0400 Body qxxozy57.37 kgDO Adam Ball Work Phone: 6(476)413-96[facility]04-06-2022 12:15-0400 Body .88 Salina Muniz Other [employer] Other 04-06-2022 12:15-0400Body mass index (BMI) [Ratio] 24.27 kg/g9Pbstdgidood Flavio Other [employer] Other 04-06-2022 12:15-0400Body oxbplqcrsnt39.2 [degF] Nick Muniz Other [employer] Other 04-06-2022 12:15-0400Body hlwler61.19 kgChaubrie Palaciodano Other [employer] Other 04-06-2022 12:15-0400Diastolic blood qnkgrobc40 mm[Hg] Nick Muniz Other [employer] Other 04-06-2022 12:15-0400Respiratory rate20 /min Nick Muniz Other [employer] Other 04-06-2022 12:15-2751UzP6% (BldA) [Mass fraction]99 % Nick Muniz Other [employer] Other 04-06-2022 12:15-0400Systolic blood amufdgix754 mm[Hg] Nick Muniz Other [employer] Other 03-28-2022 11:58-0400Blood Pressure LocationPaephra[facility] hospitaljulianna NORMAN [facility] 03-28-2022 11:58-0400Diastolic blood yukqciza91 mm[Hg] Clinton NORMAN [facility] 03-28-2022 11:58-0400Heart rate64 /minPatrick NORMAN [facility] 03-28-2022 11:58-0400Respiratory rate16 /minPatrick EMERSON [facility] 03-28-2022 11:58-0400Systolic blood eckhhevt943 mm[Hg] Clinton [facility] 12-16-2021 14:51-0500Body ojsxxg589.88 cmBenjamin E Ball Work Phone: [phone]-Wuvjh [facility] DO Work Phone: 1(774) 712-643412-16-2021 14:51-0500Body mass index (BMI) [Ratio] 23.87 kg/d7Bifxcggy E Ball Work Phone: mp558-6525KC-Ntyru [facility] DO Work Phone: 1(808) 613-145412-16-2021 14:51-0500Body surface area Derived from formula2.02 z2Htsfdrjm E Ball Work Phone: [phone]-Slkbt [facility] DO Work Phone: 1(150) 953-221312-16-2021 14:51-0500Body .83 kgBenjamin E Ball Work Phone: [phone]-Yulrh [facility] [address] DO Work Phone: 1(731) 785-878412-16-2021 14:51-0500Diastolic blood bkhhotdz64 mm[Hg] Adam E Ball Work Phone: [phone]-Rjylq [facility] DO Work Phone: 1(911) 977-636512-16-2021 14:51-0500Heart rate77 /minBenjamin E Ball Work Phone: [phone]-Kgaqc [facility] DO Work Phone: 1(507) 633-448612-16-2021 14:51-0500Systolic blood mm[Hg] Adam Del Valle Work Phone: mp-[facility] DO Work Phone: Encounters Encounter DateEncounter TypeCare ProviderFacilityStart: 21-01-8668xhicbddovd Clinton Logancility:[place]Start: 03-13-2025 End: 50-85-5481Wltfios encounter Pooja Beavers MD-Pre-Surgical Testing Work Phone: Start: 03-13-2025 End: 84-33-5753usnrsrkwnnDuixnqin Ball DO Work Phone: -Pre-Surgical TestingStart: 42-69-3448Nqa-patient / Non-visitCatherlinda Davis CMADign[facility] Work Phone: Start: 16-03-2375xrzjzsxnqsTkgjwtp R WATERSFacility:EU [place]Start: 02-16-2025 End: 10-68-9524Jtuhxybyxa and management of inpatientMojesus Nobles MD-[address] [place] [address] Med Surg Work Phone: Start: 81-96-9331Qsn-patient / Non-visitBasejefferson Akbar MD-[facility] Pulmonary Work Phone: Start: 29-98-0670Tuw-patient / Non-visitNing Godoy APRN-[facility] Work Phone: Start: 01-28-2025 End: 33-99-0633pzzxpzlmjaDEILR K [facility] Start: 01-28-2025 End: 98-42-8126Fpkgzurhsb hospital visit by physicianSerenity Turk [address] StreetComment on above:Cardiac sarcoidosisStart: 01-21-2025 End: 31-68-2144bkstsvixuqTdkdmtki Ball DO Work Phone: [facility] Work Phone: Start: 01-21-2025 End: 91-57-4306Leizutz encounter procedureNick Muniz MD-[facility] Pulmonary Work Phone: Start: 75-39-9187Uwl-patient / Non-visitNing Godoy APRNCascade [facility] Hospital [facility] Work Phone: Start: 01-17-2025 End: 86-36-4442hfsmxfpnjrKLIWHAt[facility] AmbulatoryStart: 01-17-2025 End: 66-89-9516Rizwiyndlkkq / ancillary services managementAmaliagloria Fuentes [facility] MichiganComment on above:High risk medication useStart: 01-15-2025 End: 85-94-2578ouxpksvejsTLOLKAtrium Health [facility] AmbulatoryStart: 01-15-2025 End: 45-00-0369Cvszzk outpatient visit 25 Marie Godoy [facility]NBR[facility] Work Phone: [facility] on above:High risk medication use (Primary Dx); 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 (Multi); meterman (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; Takotsubo syndrome; BMI < 18.5; Cardiac sarcoidosis; Chewing tobacco use; Other cardiomyopathy; LV dysfunctionStart: 12-84-1160Qas-patient / Non-visitCatherlinda Davis [facility] Work Phone: Start: 01-05-2025 End: 79-66-7541Zaojxzlxoa and management of inpatientRuta Horacio SALMON-[facility] [place] [facility] Work Phone: Start: 01-02-2025 End: 71-39-0250Fgyqkmjr ReferredJosue Beavers MD-Pre-Surgical Testing Work Phone: Start: 01-02-2025 End: 44-02-9935Wfqezhe encounter procedureJosue Beavers MD-Pre-Surgical Testing Work Phone: Start: 01-02-2025 End: 47-89-8584plsifjifriNroduhyi Ball DO Work Phone: [facility] Work Phone: Start: 11-19-2024 End: 03-27-3100orocxacrhaPkugnsqk Ball DO Work Phone: [facility] Work Phone: Start: 11-19-2024 End: 15-52-3466Odkpxtw encounter procedureBeelaminda Del Valle DO-[facility] Work Phone: Start: 29-44-1318See-patient / Non-visitCatherine Ryan GEOSPATIAL APPLICATIONS DEVELOPER-[facility] Work Phone: Start: 11-11-2024 End: 35-69-7092Jezkhgeyin and management of inpatientSilvano Reed DO-[address] [place] [facility] Surg Work Phone: Start: 10-31-2024 End: 31-43-1903faeyqpdwnxYLPTYP [facility] AmbulatoryStart: 10-31-2024 End: 55-15-0513Uykawy outpatient visit 25 minutesShannon Gonzalez MD Work Phone: [facility] on above:Other fatigue (Primary Dx); Non-ischemic cardiomyopathy (Multi); 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 (Multi); High risk medication use; Pulmonary sarcoidosis (Multi); BMI < 18.5; Current smokerStart: 09-02-2024 End: 92-45-6010keeoagfvkuMqdlknzq Ball DO Work Phone: [facility] Work Phone: Start: 09-02-2024 End: 43-56-1586Tfwwaab encounter procedureBegemma Del Valle DO Work Phone: [facility] Physician Group-[facility] Work Phone: Start: 08-09-2024 End: 49-09-9702Humyjlzgxj hospital visit by physicianSerenity Albert Echo/Vasc Room 2[facility] Health ServicesComment on above:Non-ischemic cardiomyopathy (Multi); Cardiomyopathy, unspecifiedStart: 08-09-2024 End: 98-84-6867wqkqoloiiyVYAICFFlower Hospitaltart: 08-05-2024 End: 02-14-9140zmpzmbekdpPyprpmh R WATERSFacility:FTMCStart: 08-05-2024 End: 75-68-7620Gkd Drop offPatrick David [facility] Start: 08-05-2024 End: 91-77-9164okcyaogborToyfadz R WATERSFacility:EU [place]vueStart: 08-01-2024 Non-patient / Non-visitBenminda Ivon DO Work Phone: [facility] Physician GroupPremier Health [facility] Work Phone: Start: 07-25-2024 End: 58-89-2369Tmdtsxmyvhhn / ancillary services managementHarriet Gibson [facility] CenterComment on above:Atrial fibrillation, unspecified type (Multi)Start: 07-25-2024 End: 99-06-1149bodntztwhnKPDWQJEmory Decatur Hospital AmbulatoryStart: 07-23-2024 End: 42-83-5554nwnjnauthhTeypzh G Furlong DO Work Phone: [facility] Family MedicineComment on above:Chronic systolic congestive heart failure (CMS-HCC) (Primary Dx); Chronic atrial fibrillation (CMS-HCC); Sarcoidosis of lung (CMS-HCC); Hypo-osmolality and hyponatremia; Benign prostatic hyperplasia with lower urinary tract symptoms, symptom details unspecifiedStart: 07-16-2024 End: 99-91-2320eoodxiwbdxPqxmwo G Furlong DO Work Phone: [facility] - Family MedicineComment on above:Chronic respiratory failure with hypoxia (CMS-HCC) (Primary Dx); [...] Muscle weakness (generalized); Alcohol dependence, 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CMS-HCC)Start: 07-15-2024 End: 87-91-7885pmjxyhokzhSuxuosix Ball DO Work Phone: [facility] Work Phone: Start: 07-15-2024 End: 46-84-0759Ugckpxr encounter procedureBenminda Ball DO Work Phone: [facility] Physician [facility] Pulmonary Work Phone: Start: 07-10-2024 End: 17-24-4782pimgcypkvwVxabku G Furlong DO Work Phone: [facility] - Family MedicineComment on above:Chronic respiratory failure with hypoxia (CMS-HCC) (Primary Dx); [...] reflux disease without esophagitis; Chronic atrial fibrillation ([facility]-HCC)Start: 32-35-0604Eyv-patient / Non-visit Adam Ball DO Work Phone: [facility] Physician [facility] Cardiology Work Phone: Start: 07-03-2024 End: 67-60-1549Hsbqwvwdyz and management of inpatientBenminda Ball DO Work Phone: [facility] [place] [facility] S[facility] Work Phone: Start: 06-12-2024 End: 46-90-5989Dimeybqano hospital visit by physicianSerenity Vital250a [place] 1[facility] Health ServicesComment on above:Fatigue, unspecified type; Non-ischemic cardiomyopathy (Multi); Diastolic dysfunction; LV (left ventricular) mural thrombus; 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 (Multi)Start: 06-12-2024 End: 57-88-9209xvbbrkypejGDHIMO [facility] Hospitaltart: 06-03-2024 End: 97-61-0970gzglluggnuCxauvnze Ball DO Work Phone: [facility] Work Phone: Start: 06-03-2024 End: 10-15-9464Amqjzqu encounter procedureBenjamin Ball DO Work Phone: [facility] Physician Group-[facility] Medical [facility] Work Phone: Start: 05-24-2024 End: 47-76-2673Eqdvki outpatient visit 25 minutesShannon Gonzalez MD Work Phone: [facility] on above:Hypotension due to drugs (Primary Dx); Non-ischemic cardiomyopathy (Multi); Diastolic dysfunction; Fatigue, unspecified type; LV (left ventricular) mural thrombus; 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 (Multi); High risk medication use; Pulmonary sarcoidosis (Multi); BMI 21.0-21.9, adult; Carotid stenosis, rightStart: 05-24-2024 End: 93-20-7210ppxsekkygcVKVRNUEmory Decatur Hospital AmbulatoryStart: 68-87-0588Zqi-patient / Non-visitBenjamin Ball DO Work Phone: [facility] Work Phone: Start: 05-01-2024 End: 54-40-7320Mznoxgz encounter procedureBentigistmin Ball DO Work Phone: [facility] Vascular Surg Work Phone: Start: 61-68-7682Jql-patient / Non-visitBenjamin Ball DO Work Phone: [facility] Physician Group-[facility] Work Phone: Start: 03-27-2024 End: 37-47-8515Ucfmmq outpatient visit 25 minutesShannon Gonzalez MD Work Phone: [facility] on above:Persistent atrial fibrillation (Multi) (Primary Dx); Non-ischemic cardiomyopathy (Multi); Chronic obstructive pulmonary disease, unspecified COPD type (Multi); BMI 20.0-20.9, adult; High risk medication use; Pulmonary sarcoidosis (Multi); Carotid artery stenosis without cerebral infarction, right; DyslipidemiaStart: 03-27-2024 End: 66-56-9825vgkaazudcjQLPIAK [facility] AmbulatoryStart: 03-26-2024 End: 06-11-2962lhwyyjjuabGqonanqt Ball DO Work Phone: [facility] Work Phone: Start: 03-26-2024 End: 30-16-7933Pmfeelt encounter procedureBenjamin Ball DO Work Phone: [facility]-Lab [facility] Work Phone: Start: 03-25-2024 End: 33-70-8749qdhdmwznrpCeibrzmh Ball DO Work Phone: [facility] Work Phone: Start: 03-25-2024 End: 74-54-9342Onydmhz encounter procedureBenjamin Ball DO Work Phone: [facility] Work Phone: Start: 75-88-5545Pvm-patient / Non-visitBenjamin Ball DO Work Phone: [facility] Work Phone: Start: 38-65-3521Oxl-patient / Non-visitDO Adam Ball Work Phone: [facility] Physician Group-[facility] Cardiology Work Phone: Start: 20-61-3856Mol-patient / Non-visitDO Adam Del Valle Work Phone: [facility] Physician Group-[facility] Rehab and Spine Work Phone: Start: 78-12-2957Dkd-patient / Non-visitDO Adam Ball Work Phone: [facility] Physician Group-[facility] Vascular Surgery Work Phone: Start: 59-77-1458Hjt-patient / Non-visitBenjamin Ball DO Work Phone: [facility] Physician Group-[facility] Work Phone: Start: 03-13-2024 End: 72-17-6684Bmrkdscoti and management of inpatientDO Adam Del Valle Work Phone: [facility] [place] [facility] Work Phone: Start: 72-39-8466Jbr-patient / Non-visitDO Adam Del Valle Work Phone: [facility] Work Phone: Start: 03-08-2024 End: 86-48-4576nmptabyedmKI Adam Del Valle Work Phone: [facility] Work Phone: Start: 03-08-2024 End: 40-20-9437Dvolrtd encounter procedureDO Adam Ball Work Phone: [facility] Work Phone: Start: 08-46-0587Syt-patient / Non-visitDO Adam Ball Work Phone: [facility] Work Phone: Start: 49-81-0627Sjv-patient / Non-visitBenjamin Ball DO Work Phone: [facility] Work Phone: Start: 64-72-3880Ftt-patient / Non-visitDO Adam Del Valle Work Phone: [facility] Work Phone: Start: 35-60-5065Jix-patient / Non-visitDO Adam Del Valle Work Phone: [facility] Work Phone: Start: 68-02-9529Ocq-patient / Non-visitDO Adam Del Valle Work Phone: [facility] Work Phone: Start: 02-28-2024 End: 98-00-9580Dopdjtnmke and management of inpatientDO Adam Del Valle Work Phone: [facility] [place] [facility] Work Phone: Start: 02-20-2024 End: 41-05-0385Riqldhgtazkf / ancillary services managementOlivia Toro [facility] CenterComment on above:ArrivedStart: 02-20-2024 End: 46-04-4886irlkjgpkiqDIKYKK [facility]ulatoryStart: 02-14-2024 End: 96-04-3760aizqdxwaqiLU Adam Del Valle Work Phone: [facility] Work Phone: Start: 02-14-2024 End: 79-87-5189Fghqtkb encounter procedureDO Adam Del Valle Work Phone: [facility] Work Phone: Start: 73-44-2990Sxq-patient / Non-visitDO Adam Del Valle Work Phone: [facility] Work Phone: Start: 72-23-3638Ajv-patient / Non-visitDO Adam Del Valle Work Phone: [facility] Work Phone: Start: 02-02-2024 End: 79-17-9709Pjsphklpel and management of inpatientDO Adam Del Valle Work Phone: [facility] [place] [facility] Work Phone: Start: 60-85-3355Hdn-patient / Non-visitDO Adam Del Valle Work Phone: [facility] Work Phone: Start: 49-36-3267Uxy-patient / Non-visitDO Adam Del Valle Work Phone: [facility] Work Phone: Start: 10-13-2023 End: 29-09-7326Isbblq outpatient visit 25 minutesSteven Alvares MD Work Phone: FirelandsComment on above:Non-ischemic cardiomyopathy (Multi) (Primary Dx); LV (left ventricular) mural thrombus; Diastolic dysfunction; Pulmonary sarcoidosis (Multi); Imbalance; BMI 23.0-23.9, adultStart: 08-14-2023 End: 38-69-0048Dkyciiq encounter procedurePatrick David NORMAN [facility] start: 05-04-2023 End: 71-47-5533xbfqbybgxzKedntvaf Ball Other InfernoRed Technologycarondelet health [employer] Other Start: 98-18-2084Zyuuzbslz encounterBenjamin IvonJODYG [facility] ClinicStart: 03-01-2023 End: 26-73-4261blkykwlcfbQrrugmxq Ball Other noOssDsign AB [employer] Other Start: 91-08-1796Tbrxxb outpatient visit 25 minutes Adam Del Valle Medical ClinicStart: 62-78-4797Ar RenewalBenjamin E Ball Work Phone: [phone]-ObfioMadelia [facility] [facility] DO Work Phone: Start: 12-04-2022 End: 36-90-6221hrrpprtiakVgtvrltsxwg Flavio Other [facility] Other Start: 57-04-5109Jpaoyjhhv encounterChristopher AvendanoFPG [facility] ClinicStart: 11-28-2022 End: 31-92-2603Dznonri encounter procedurePatrick R EMERSON [facility] start: 09-27-2022 End: 24-20-5218cjpanvpoueGkegxcyn Ball Other [facility] Other Start: 47-56-5582Oplycpigw encounterBenjamin BallFPG [facility] ClinicStart: 10-97-2869Ns RenewalBenjamin E Ball Work Phone: [phone]-Blbcg [facility] 250 DO Work Phone: Start: 48-93-0947Gjngywczh for general adult medical examination without abnormal findingsDR ADAM DEL VALLEOhioHealth Hardin Memorial Hospitaltart: 09-02-2022 End: 16-55-2192ptczydnzdjFM ADAM DEL VALLEFacility:M4Qpzrg: 09-02-2022 End: 73-13-8576Kjefcvopz for general adult medical examination without abnormal findingsDR ADAM DEL VALLEFacility:P8Zfgyo: 09-01-2022 End: 32-85-4432ohferwdgdkLpvygdbu Ball Other [facility] [employer] Other Start: 89-83-7678Osnmwrr encounter procedureBenjamin BallFPG [facility] ClinicStart: 46-04-8809Ze RenewalBenjamin E Ball Work Phone: [phone]-Xwszx [facility] 250 DO Work Phone: Start: 08-16-2022 End: 48-52-6087vfjgpwkkqqWligtmdjtxa Flavio Other nort [employer] Other Start: 81-32-7232Ktpxzgisd encounterChristopher AvendanoFPG Pulmonary DiseaseStart: 05-16-2022 End: 63-00-9551iqfbhwnoskWH GREGG QUIROSFacility:X6Uhrbr: 71-08-4649Yutkf health examinationChristopher Flavio Other [facility] Other Start: 04-19-2022 End: 16-38-4095eyvusblxeqIW JOSE ALFARO .Facility:C3Uxjpr: 02-14-2022 End: 61-98-4259Kfkgyph encounter procedureParudolph NORMAN [facility] start: 02-07-2022 End: 73-98-8532fpnqojbldnUN ADAM BALLFacility:Q8Oebwo: 12-13-2021 End: 87-64-5416azskljuncdAH ADAM DEL VALLEFacility:F2Vqtxa: 11-30-2021 End: 28-83-3403mmatxzcpanPO ADAM BALLFacility:C7Sahhj: 11-16-2021 End: 39-27-8341qyilimeuazYCAAE PARKERFacility:U5Fdvjw: 11-15-2021 End: 98-14-5172dtijkvuejxSP JOSE ALFARO .Facility:V6Panqt: 10-26-2021 End: 40-73-1433Gipczofkf to same day surgery centerDO Adam Del Valle Work Phone: [facility]-Digestive HealthStart: 10-22-2021 End: 07-09-2949Tvuzgwy encounter procedureDO Adam Del Valle Work Phone: [facility]-Pre-Surgical [facility] Start: 06-71-1310Dc RenewalBenjamin E Ball Work Phone: [phone]-Hczss [facility] 250 DO Work Phone: Start: 10-07-2021 End: 57-77-9093jilpgnyftkEwhus Hykes Other [facility] Other Start: 92-72-0025Nfaxfqqof encounterDavid HykesFPG GastroenterologyStart: 10-05-2021 End: 02-65-3899fltcmugkwaFrfeqqwjllz Flavio Other [facility] [employer] Other Start: 78-62-7602Mqkfaztkz encounterChristopher AvendanoFPG Pulmonary DiseaseStart: 2021 End: 41-71-5207hdlgjleigfUsukdahgeri Flavio Other [facility] Other Start: 67-21-0869Hfspil outpatient visit 15 minutes Nick PalaciodanoFPG Pulmonary DiseaseStart: 28-79-9776GCIDDLpwyycto E Ball Work Phone: [phone]-Joyjl [place] [facility] 250 DO Work Phone: Start: 08-09-2021 End: 29-12-1296Ijqbmcd encounter procedurePatricjulianna Hernandez NORMAN [facility] [employer] start: 19-69-2007Zhqvfi outpatient visit 25 minutes Adam E Ball Work Phone: [phone]-Aqlgz [facility] 250 DO Work Phone: Evaluation findingBenjamin E Ball Work Phone: [phone]-Apfdn [place] [facility]-[place] 250 DO Work Phone: Procedures DateProcedureProcedure DetailPerforming ClinicianStart: 46-40-4293Zcwti nucleic acid assayBenjamin Ball DO Work Phone: Start: 13-17-9188WX angiography of thoraxBenjamin Ball DO Work Phone: Start: 26-48-6858Jzgtz chest X-rayBenjamin Ball DO Work Phone: Start: 57-47-8393Ulowv cultureBenjamin Ball DO Work Phone: Start: 37-91-5432Aisbi chest X-rayBenjamin Ball DO Work Phone: Start: 17-80-2948Hbfto cultureBenjamin Ball DO Work Phone: Start: 64-94-5624Gjp routine ecg w/least 12 lds w/i&r Shannon Gonzalez MD Work Phone: Start: 24-84-3332Tapg tthrc r-t 2d w/wom-mode compl spec&colr Enrike Gonzalez MD Work Phone: Start: 18-30-5726Yuzvj cultureBenjamin Ball DO Work Phone: Start: 56-23-2669GK angiography of thoraxBenjamin Ball DO Work Phone: Start: 33-83-4935Jfniuq scan of lower limb veins Adam Ball DO Work Phone: Start: 49-56-3062Fuidsanm tomography of abdomen and pelvis with contrastBenjamin Ball DO Work Phone: Start: 39-32-3749TI of head without contrastBenjamin Ball DO Work Phone: Start: 77-59-0632Prkma chest X-rayBenjamin Ball DO Work Phone: Start: 03-98-1987Qxrfd nucleic acid assayBenjamin Ball DO Work Phone: Start: 71-61-3436Sj strs tst xers&/or rx cont ecg trcg onlyShannon Gonzalez MD Work Phone: Start: 43-70-3574Gjs routine ecg w/least 12 lds w/i&r Shannon Gonzalez MD Work Phone: Start: 75-53-7128Zoa routine ecg w/least 12 lds w/i&r Shannon Gonzalez MD Work Phone: Start: 70-55-4922Bmqlqjaa identified in Urine by CultureDO Adam Altheos Work Phone: Start: 31-43-8829Bafew cultureBenjaessence Del Valle DO Work Phone: Start: 48-87-9925Zxjotde ultrasonography of bilateral carotid arteriesDO Adam Altheos Work Phone: Start: 46-52-9987NWY of headDO Adam Altheos Work Phone: Start: 23-21-4408VL of abdomen and pelvis without contrastDO nGame Work Phone: Start: 76-12-6910Uokjx chest X-rayDO Adam Altheos Work Phone: Start: 92-08-2114Cjezm chest X-rayDO Adam Altheos Work Phone: Start: 03-64-2532QYP screeningDR ADAM DEL VALLEComment on above:Performed By: #### URIC, BMP, TSH #### [facility] [address] [place] [address] Dr. Fabrizio Roeart: 66-79-0669FIY screeningDR ADAM DEL VALLEComment on above: Performed By: #### BNP, BMP, HSTROPN #### [facility] [address] [address] [address] Fabrizio Roeart: 31-05-7337UbqzkkssstrsjrmnmbbkgwwibkQI nGame Work Phone: Start: 83-31-1742Zzcmxewdtc studiesPatrick [employer] Start: 99-84-2536JfnktsoritLkdkkbl [employer]form Start: 54-98-5729Wifgqnghv for osteoporosisChristopher Flavio Other start: 63-22-8444Arriblqrg for malignant neoplasm of prostateChristopher Flavio Other arthroscopy of kneeAdam Del Valle Work Phone: ColonoscopyPaGlide Pharmak Symform HemorrhoidectomyPatrick Symform Total colonoscopyBenminda Del Valle Work Phone: Plan of Treatment DateCare ActivityDetailAuthorStart: 68-90-3994Sryqbmushsfy vaccination Pneumococcal Vaccine (3 of 3 - PCV20 or PCV21)[facility] Start: 64-50-2802NypgeyyrbwvbsfbwCrnvxlrtsqvphqFcexgvhvcx [facility] Start: 06-11-2025 End: 66-16-3593Rxuiiyq encounter gbyaktlcs33/28/2026 11:00 AM EST Office Visit [place] [facility] [address] [place] [address] Shannon Gonzalez MD [address] [facility] [address], [address] [place] [address] [facility]Start: 27-29-6179uvuftxidrmPxdotckznnEjqcvpby:EU BellevueStart: 13-20-0673UfgdzneffbcmuqfcLjxpdoabuzwrawXptoxxpgaw [facility] ClevelandStart: 92-93-3298QoulgxlcbMorrow County Hospitaltart: 02-18-2025 End: 42-28-0803Kzhvzxq encounter /07/2025 10:45 AM EDT Appointment [address] [facility] [address] [place] [address] [facility]: 54-00-6886Hwqofscdmhztcz of prophylactic treatment [facility]: 16-61-9697Qzryqshbw culture of sputum [facility]: 02-16-2025 End: 51-33-3219NhutduxieMorrow County Hospitaltart: 19-83-0458Eeampgvo therapy procedureMorrow County Hospitaltart: 35-65-8320Ywlchzrc to occupational therapistMorrow County Hospitaltart: 02-16-2025 ConsultationMorrow County Hospitaltart: 55-90-8000Sbjigcvig culture of sputumMorrow County Hospitaltart: 59-02-9741Txzcnmou admission [facility]: 52-97-6942Tnxyi chest X-rayXR chest 2V* [facility]: 75-64-6831NW Chest 2 ViewsMorrow County Hospitaltart: 02-14-2025 End: 13-25-2152RH Heart TransthoracicTransthoracic Echo Limited Echocardiography Routine Takotsubo syndrome Expected: 02/14/2025 (Approximate), Expires: 01/15/2027[facility] Service Area Work Phone: Comment on above:Expected: 02/14/2025 (Approximate), Expires: 01/15/2027Start: 83-17-1760EuktyqkhbbstfwlhFlcmdackgvydwwNneqdorjal [facility]Start: 01-28-2025 End: 32-71-4041Nbwkduj encounter /16/2025 11:00 AM EDT Appointment [facility] Building [address] [address] [facility] Medical Office BuildingStart: 01-28-2025 Subsequent hospital visit by uobxqenuj39/16/2025 11:00 AM EDT Hospital Encounter [facility] Medical Office Building [address] [facility] [address] [place] [address] [facility] Medical Office BuildingStart: 01-21-2025 End: 33-43-8493Uuwicpdzrqxo / ancillary services wvbjqkyexn02/09/2025 10:00 AM EDT Ancillary Procedure [facility] [address] [facility] [address] [place] [address] XF [facility] 01-17-2025 End: 34-15-6482FIA [address] [place] [address] Work Phone: Comment on above:Expected: 01/17/2025 (Approximate), Expires: 01/16/2026Start: 01-17-2025 End: 57-48-7351Xrcptexikssg / ancillary services mpwfugpopz81/05/2025 11:00 AM EDT Ancillary Procedure [facility] [address] [address] [place] [address] [facility]Start: 01-16-2025 End: 59-71-6503UJ Heart WO and W contrast IVMR cardiac morphology and function w and wo IV contrast Imaging Routine Cardiac sarcoidosis Expected: 01/16/2025 (Approximate), Ex[facility]: [facility] Work Phone: Comment on above:Expected: 01/16/2025 (Approximate), Expires: 01/16/2026Start: 01-15-2025 End: 62-36-0342Moxvq metabolic 2000 panel - Serum or PlasmaBasic Metabolic Panel Lab Routine 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 (Multi) Takotsubo syndrome Expected: 01/15/2025 (Approximate), Expires: 01/15/2026[facility] Work Phone: Comment on above:Expected: 01/15/2025 (Approximate), Expires: 01/15/2026Start: 01-15-2025 End: 31-54-8903NDH panel - Blood by Automated countCBC Lab Routine 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 (Multi) meterman (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 Takotsubo syndrome Expected: 01/15/2025 (Approximate), Expires: 01/15/2026[facility] Work Phone: Comment on above:Expected: 01/15/2025 (Approximate), Expires: 01/15/2026Start: 01-15-2025 End: 66-53-0253Khhuql monitor studyHolter Or Event Forensic Artist Cardiac Services Routine 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 (Multi) Takotsubo syndrome Cardiac sarcoidosis Expected: 01/15/2025 (Approximate), Expires: 01/15/2027 [facility] Work Phone: Comment on above:Expected: 01/15/2025 (Approximate), Expires: 01/15/2027Start: 01-15-2025 End: 61-79-4002Slaulrkpi [Mass/volume] in Serum or PlasmaMagnesium Lab Routine 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 (Multi) half-way (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 Takotsubo syndrome Expected: 01/15/2025 (Approximate), Expires: 01/15/2026 [facility] Work Phone: Comment on above:Expected: 01/15/2025 (Approximate), Expires: 01/15/2026Start: 01-15-2025 End: 60-24-2235Lzwczvouhru peptide B [Mass/volume] in BloodB-Type Natriuretic Peptide Lab Routine 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 (Multi) half-way (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 Takotsubo syndrome Other cardiomyopathy Expected: 01/15/2025 (Approximate), Expires: 01/15/2026[facility] Work Phone: Comment on above:Expected: 01/15/2025 (Approximate), Expires: 01/15/2026Start: 73-95-9985WUKWF-19 Vaccine ( season)COVID- 19 Vaccine ( season)[facility]: 31-92-7750Prfmijrhw vaccinationInfluenza Vaccine (#1)[facility]: 98-70-0452PvdkwnsqyMorrow County Hospitaltart: 01-05-2025 End: 08-23-5444PlobhwhkuMorrow County Hospitaltart: 43-41-5004Ecfopogxf culture of sputumMorrow County Hospitaltart: 08-07-8408Eylbtqnl therapy procedureMorrow County Hospitaltart: 29-55-5400Nbtirdvy to occupational therapistMorrow County Hospitaltart: 59-52-5130Zttrnxqp to cardiologistMorrow County Hospitaltart: 06-21-9081Ovlbleij admissionMorrow County Hospitaltart: 38-65-7619HJ angiography of thoraxCT angio chest PE protocolMorrow County Hospitaltart: 04-33-5099ER ChestMorrow County Hospitaltart: 58-63-8511Lkzlq chest X-rayXR chest 1V portableMorrow County Hospitaltart: 58-93-8809PT Chest Single viewMorrow County Hospitaltart: 12-09-0579AxgaiteapMorrow County Hospitaltart: 48-09-8720FvrodlnamMorrow County Hospitaltart: 11-12-2024 End: 55-22-0253QmhjjseegMorrow County Hospitaltart: 65-71-8409Eaxgqhew admissionMorrow County Hospitaltart: 70-88-8791Epatbqdop culture of sputumMorrow County Hospitaltart: 07-12-7098Fvoguhxy therapy procedureMorrow County Hospitaltart: 17-70-4985Qlkjliur to occupational therapistMorrow County Hospitaltart: 11-11-2024 [facility]: 73-36-9909Kvlqf chest X-rayXR chest 1V portableMorrow County Hospitaltart: 12-98-3235GP Chest Single view [facility]: 11-10-2024 End: 51-63-0334Gvndq cultureMorrow County Hospitaltart: 11-10-2024 Bacteria identified in Urine by CultureUrine CultureMorrow County Hospitaltart: 10-31-2024 End: 74-47-7396Tazeu metabolic 2000 panel - Serum or PlasmaBasic Metabolic Panel Lab Routine Non-ischemic cardiomyopathy (Multi) 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 (Multi) Expected: 10/31/2024 (Approximate), Expires: 10/31/2025[facility] Work Phone: Comment on above:Expected: 10/31/2024 (Approximate), Expires: 10/31/2025Start: 10-31-2024 End: 99-67-6793RYN panel - Blood by Automated countCBC Lab Routine Non-ischemic cardiomyopathy (Multi) 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 (Multi) Expected: 10/31/2024 (Approximate), Expires: 10/31/2025[facility] Service Area Work Phone: Comment on above:Expected: 10/31/2024 (Approximate), Expires: 10/31/2025Start: 10-18-2024 End: 62-80-6573Lnwvuus encounter dohwoyuss32/06/2025 1:30 PM EDT Office Visit [address] [facility] [address] [place] [address] Shannon Gonzalez MD [address] [place] [address] [facility]: 09-13-2024 End: 16-75-7978Jzouagy encounter nmtscratx43/02/2025 2:10 PM EDT Office Visit [address] [place] [address] Shannon Gonzalez MD [address] [place] [address] [facility]: 04-30-2025Medicare Annual Wellness Visit Medicare Annual Wellness Visit (AWV)[facility]: 08-09-2024 End: 82-10-2531Bwihqyv encounter jbkoskair50/28/2025 12:30 PM EDT Appointment [address] [place] [address] [facility]: 07-25-2024 End: 88-96-8321EQ Heart TransthoracicTransthoracic Echo Complete Echocardiography Routine Non-ischemic cardiomyopathy (Multi) Expected: 0 07/25/2024 (Approximate), Expires: 03/27/2026[facility] Service Area Work Phone: Comment on above:Expected: 07/25/2024 (Approximate), Expires: 03/27/2026Start: 07-25-2024 End: 95-58-1938Yjphwrt encounter atyxjlpgf73/13/2025 12:30 PM EDT Appointment [address] [place] [address] [facility] ServicesStart: 50-23-8202PmudyedtbMorrow County Hospitaltart: 03-50-2752Qqbeqhzcxubrjv of prophylactic treatmentMorrow County Hospitaltart: 29-25-6157Vuuomms referral to dietitianMorrow County Hospitaltart: 99-72-0561Zwghimaw to cardiologistKettering Health Behavioral Medical Center Start: 07-04-2024 End: 70-03-8508JbonqvtyeMorrow County Hospitaltart: 22-35-2450Ruxteruf therapy procedureMorrow County Hospitaltart: 65-83-7906Kkiqtyuk to occupational therapistM[facility] County Hospitaltart: 07-03-2024 [facility]: 35-27-1660Jxdjvvzj admissionMorrow County Hospitaltart: 12-94-4841Ctzijg scan of lower limb veinsUS venous duplex LE [facility]: 75-50-4493ZM Lower extremity vein - bilateralMorrow County Hospitaltart: 07-03-2024 [facility]: 93-61-8114FnldzoqwuMorrow County Hospitaltart: 46-08-1679Bpvstxbr of Bladder with Drainage Device, Via Natural or Artificial OpeningDrainage of Bladder with Drainage Device, Via Natural or Artificial OpeningMorrow County Hospitaltart: 06-12-2024 End: 42-19-2412Jnzvilw encounter lthozlbny20/29/2025 2:15 PM EST Appointment [facility] [address] [place] [address] [facility]: 06-12-2024 End: 17-38-3687Wkvfxmg encounter procedureCity HospitalNolan [facility] CenterStart: 05-24-2024 End: 77-40-5156NR Heart Perfusion W stress and W radionuclide IVNuclear Stress Test Cardiac Nuclear Medicine Routine Fatigue, unspecified type Non-ischemic cardiomyopathy (Multi) Diastolic dysfunction LV (left ventricular) mural thrombus 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 (Multi) Expected: 05/24/2024 (Approximate), Expires: 05/24/2026[facility] Service Area Work Phone: Comment on above:Expected: 05/24/2024 (Approximate), Expires: 05/24/2026Start: 04-15-2024 End: 71-95-5585Xwyrpet encounter wcektropa46/02/2024 1:20 PM EST Office Visit [address] [place] [address] Shannon Gonzalez MD [address] [facility] [address] [place], [place] [id number] [facility]Start: 03-27-2024 End: 86-62-0271Wisge metabolic 2000 panel - Serum or PlasmaBasic Metabolic Panel Lab Routine Non-ischemic cardiomyopathy (Multi) Expected: 03/27/2024 (Approxim ate), Expires: 03/27/2025[facility] Work Phone: Comment on above:Expected: 03/27/2024 (Approximate), Expires: 03/27/2025Start: 91-44-0241HgkncifzgMorrow County Hospitaltart: 80-44-8668Cxhowcas to rehabilitation physicianKettering Health Behavioral Medical Center Start: 20-81-4508Nylxrrwm to neurologistMorrow County Hospitaltart: 72-80-6435Cckffiyt to vascular surgeonMorrow County Hospitaltart: 91-97-3610Vnaiogkv to Social ServicesMorrow County Hospitaltart: 93-36-8955Vohdj disorder assessmentMorrow County Hospitaltart: 04-59-7986Jkbazisf admissionMorrow County Hospitaltart: 03-01-2024 [facility]: 02-29-2024 End: 57-85-4505Ilaakss encounter gwqhfhysh13/17/2024 11:40 AM EDT Office Visit [address] [place] [address] Shannon Gonzalez MD [address] [facility] [address] [place], [place] [address] [facility] HospitalStart: 88-68-1652Xysddcfi admissionMorrow County Hospitaltart: 56-53-1789Gxndi chest X-rayXR chest 1V portable [facility]: 24-64-6208Dojdhvlmxzz of Cardiac Rhythm, SingleRestoration of Cardiac Rhythm, SingleKettering Health Behavioral Medical Center Start: 97-60-1747VxrpnupjqMorrow County Hospitaltart: 85-14-9147WtmlvyecqMorrow County Hospitaltart: 01-08-1911Vdvfszck admissionMorrow County Hospitaltart: 79-05-6761Nljkztxb to cardiologistMorrow County Hospitaltart: 14-33-8456MHOJC-19 Vaccine ( season)COVID-19 Vaccine ()[facility]: 01-14-2024 COVID-19 Vaccine ( season)COVID-19 Vaccine () [facility]: 64-58-6106KGBSX-19 Vaccine ( season)COVID-19 Vaccine ()[facility] Start: 76-42-7101YCSAG-19 Vaccine ( season)COVID-19 Vaccine ( season)[facility]: 17-32-8607Wyanitmnu vaccinationParkview Health Mont[facility]ier Hospital: 27-77-6548QXD, Provider: Steven Alvares, Status: Pen, Time: 1:40 PMFUV, Provider: Steven Alvares, Status: Pen, Time: 1:40 [facility] [address] DO Work Phone: Start: 97-39-9205WCEBX-19 Vaccine ( season) COVID-19 Vaccine ()[facility]: 64-76-9487BEJ, Provider: Steven Alvares, Status: Pen, Time: 11:20 AMFUV, Provider: Steven Alvares, Status: Pen, Time: 11:20 AMMP-[facility] [address] DO Work Phone: Start: 18-96-9946EQL, Provider: Steven Alvares, Status: Pen, Time: 1:40 PMFUV, Provider: Steven Alvares, Status: Pen, Time: 1:40 PM-[facility] [address] DO Work Phone: Start: 58-66-3031Dlocewhdaixl Vaccine: 65+ Years (3 of 3 - PPSV23 or PCV20)Pneumococcal Vaccine: 65+ Years (3 of 3 - PPSV23 or PCV20) [facility]: 63-57-9915Dqew Risk ScreeningFall Risk ScreeningMain [facility] SystemStart: 54-39-2244FTiE/Tdap/Td Vaccines (1 - Tdap)DTaP/Tdap/Td Vaccines (1 - Tdap)[facility]: 92-61-5236RWG High Risk: (Elderly (60+) or Population) (1 - Risk 60-74 years 1-dose series)RSV High Risk: (Elderly (60+) or Population) (1 - Risk 60-74 years 1-dose series)[facility]: 12-12-3096UHD patients and/or patients aged 60+ years (1 - 1-dose 60+ series)RSV patients and/or patients aged 60+ years (1 - 1-dose 60+ series)[facility]: 37-25-6804Zpmlmxipjjitqt of varicella zoster vaccineZoster (Shingles) Vaccine (1 of 2)[facility] SystemStart: 94-62-4015Xsxkzj Vaccines (1 of 2)Zoster Vaccines (1 of 2) [facility]: 32-10-1320AHgW/Tdap/Td Vaccines (1 - Tdap)DTaP/Tdap/Td Vaccines (1 - Tdap)[facility]: 88-34-8420IMxQ,Tdap and Td Vaccines (1 - Tdap)DTaP,Tdap and Td Vaccines (1 - Tdap)[facility] SystemStart: 64-47-3781Vjvzw BMI ScreeningAdult BMI ScreeningMain Campus Medical Center SystemStart: 51-61-9362Aqnrnyrq mellitus screening Diabetes ScreeningPark[facility] Health [facility]: 71-56-1874Ondcirpvb C screeningHepatitis C ScreeningParkview Health [facility]: 1967 Depression ScreeningDepression ScreeningMain [facility] Medical Center SystemStart: [address] Hospitaltart: 40-23-7402NSP Vaccines (1 of 1 - Standard series)MMR Vaccines (1 of 1 - Standard series) [facility]: 14-16-1313Ajksqj wellness visitMedicare Initial Physical (IPPE)[facility]: 1955 Creatinine measurementCreatinine [facility]: 25-69-6931Ibuda panelLipid PanelParkview Health Montpelier Hospital: 04-06-1956Medicare Annual Wellness VisitMedicare Annual Wellness Visit (AWV) [facility]: 68-76-3070Oziygwzur measurementPotassium [facility]: 77-47-6572Szrywyhav for malignant neoplasm of colonParkview Health [facility]: 97-77-1477Sqqixio stimulating hormone measurementTSBailey Medical Center – [place], [place] Albumin/Globulin ratioKettering Health Behavioral Medical CenterAnion gap measurement [facility] Medical CenterAnion gap measurementKettering Health Behavioral Medical CenterAnion gap measurementKettering Health Behavioral Medical CenterBasophils [#/volume] in Blood by Automated countKettering Health Behavioral Medical CenterBasophils [#/volume] in Blood by Automated countKettering Health Behavioral Medical Center Basophils [#/volume] in Blood by Automated countKettering Health Behavioral Medical CenterBasophils/100 leukocytes in Blood by Automated countKettering Health Behavioral Medical CenterBasophils/100 leukocytes in Blood by Automated countKettering Health Behavioral Medical CenterBasophils/100 leukocytes in Blood by Automated count [facility] CenterComprehensive metabolic 2000 panel - Serum or PlasmaKettering Health Behavioral Medical CenterECG 12 LeadECG 12 Lead ECG Routine Atrial fibrillation, unspecified type (Multi) 02/20/2024 1:44 PM [facility] Service Area Work Phone: ECZ 12 LeadECG 12 Lead ECG Routine Atrial fibrillation, unspecified type (Multi) 07/25/2024 9:[facility] Work Phone: ecg 12 LeadECG 12 Lead ECG Routine High risk medication use 01/15/2025 8:35 AM [facility] Work Phone: Eosinophils/100 leukocytes in Blood by Automated [facility]stownEosinophils/100 leukocytes in Blood by Automated [facility] HospitalEosinophils/100 leukocytes in Blood by Automated [facility] HospitalErythrocyte distribution width [Ratio] by [facility]ated [facility] Erythrocyte distribution width [Ratio] by Automated [facility] HospitalErythrocyte distribution width [Ratio] by Automated [facility] HospitalErythrocytes [#/volume] in [facility]Erythrocytes [#/volume] in [facility] Erythrocytes [#/volume] in [facility] CincinnatiGlobulin [Mass/volume] in SerumKettering Health Behavioral Medical CenterGlomerular filtration rate [Volume Rate/Area] in Serum, Plasma or Blood by [facility] HospitalGlomerular filtration rate [Volume Rate/Area] in Serum, Plasma or Blood by [facility] HospitalHematocrit [Volume Fraction] of [facility] CincinnatiHematocrit [Volume Fraction] of [facility] CincinnatiHematocrit [Volume Fraction] of [facility] HospitalHemoglobin [Mass/volume] in [facility] CincinnatiHemoglobin [Mass/volume] in [facility] CincinnatiHemoglobin [Mass/volume] in [facility] Leukocytes [#/volume] corrected for nucleated erythrocytes in Blood by Automated [facility] CenterLeukocytes [#/volume] corrected for nucleated erythrocytes in Blood by Automated [facility] CenterLeukocytes [#/volume] corrected for nucleated erythrocytes in Blood by Automated [facility] Medical CenterLeukocytes [#/volume] in Blood [facility] CenterLeukocytes [#/volume] in [facility] CincinnatiLeukocytes [#/volume] in [facility] CincinnatiLymphocytes [#/volume] in Blood by Automated [facility] HospitalLymphocytes [#/volume] in Blood by Automated countKettering Health Behavioral Medical CenterLymphocytes [#/volume] in Blood by Automated count [facility] CenterLymphocytes/100 leukocytes in Blood by Automated countKettering Health Behavioral Medical CenterLymphocytes/100 leukocytes in Blood by Automated countKettering Health Behavioral Medical CenterLymphocytes/100 leukocytes in Blood by Automated countKettering Health Behavioral Medical CenterMCH [Entitic mass] by Automated countKettering Health Behavioral Medical CenterMCH [Entitic mass] by Automated countKettering Health Behavioral Medical CenterMCH [Entitic mass] by Automated countKettering Health Behavioral Medical CenterMCHC [Mass/volume] by Automated countKettering Health Behavioral Medical CenterMCHC [Mass/volume] by Automated count [facility] CenterMCHC [Mass/volume] by Automated countKettering Health Behavioral Medical CenterMCV [Entitic volume] by Automated countKettering Health Behavioral Medical CenterMCV [Entitic volume] by Automated countKettering Health Behavioral Medical CenterMCV [Entitic volume] by Automated [facility] Monocytes [#/volume] in Blood by Automated countKettering Health Behavioral Medical CenterMonocytes [#/volume] in Blood by Automated [facility] HospitalMonocytes [#/volume] in Blood by Automated countKettering Health Behavioral Medical CenterMonocytes/100 leukocytes in Blood by Automated countKettering Health Behavioral Medical CenterMonocytes/100 leukocytes in Blood by Automated count [facility] CenterMonocytes/100 leukocytes in Blood by Automated [facility] End: 75-33-4831BO Heart WO and W contrast [facility] Service Area Work Phone: Comment on above:Once for 1 Occurrences starting 01/28/2025 until 01/28/2025Neutrophils [#/volume] in Blood by Automated count [facility] CenterNeutrophils [#/volume] in Blood by Automated countKettering Health Behavioral Medical CenterNeutrophils [#/volume] in Blood by Automated countKettering Health Behavioral Medical CenterNeutrophils/100 leukocytes in Blood by Automated countKettering Health Behavioral Medical CenterNeutrophils/100 leukocytes in Blood by Automated countK[facility] Center Neutrophils/100 leukocytes in Blood by Automated countKettering Health Behavioral Medical CenterNucleated erythrocytes [Presence] in Blood by Automated countKettering Health Behavioral Medical CenterNucleated erythrocytes [Presence] in Blood by Automated countAtrium Health [facility] Regional Medical CenterNucleated erythrocytes [Presence] in Blood by Automated [facility] HospitalPatient EducationAshtabula [facility]tr Work Phone: Patient referralAshtabula County Medical Center Ctr Work Phone: Platelet mean volume [Entitic volume] in Blood by Automated [facility] HospitalPlatelet mean volume [Entitic volume] in Blood by Automated [facility] HospitalPlatelet mean volume [Entitic volume] in Blood by Automated [facility] HospitalPlatelets [#/volume] in [facility] Platelets [#/volume] in [facility] CincinnatiPlatelets [#/volume] in [facility] Immunizations Immunization DateImmunizationNotesCare QxgounoqXjcratka28-28-5337ykybysuqc, high dose seasonal, preservative-freeBenjamin Ball DO Work Phone: [facility]03-04-2025RSV, 60 Years And Older (AREXVY)Shannon Gonzalez MD Work Phone: [facility] Work Phone: [phone], high dose seasonal, preservative-freeBenjamin Ball DO Work Phone: [facility]10-01-2024Flu vaccine, quadrivalent, high-dose, preservative free, age 65y+ (FLUZONE)Shannon Gonzalez MD Work Phone: [facility]10-01-2024influenza virus vaccine, unspecified formulationNing Godoy APRN-STREET ENGINEER Work Phone: [facility] Work Phone: [phone]u, high dose seasonal, preservative-freeBenjamin Ball Other [employer] Other [id number] virus vaccine, unspecified formulationDO Adam Ball Work Phone: [facility]10-19-2022Fluad Quadrivalent 0.5 ML Intramuscular Prefilled SyringeBenjamin E Ball Work Phone: [phone]-YtnqaAllina [facility] 250 DO Work Phone: [phone] virus vaccine, split virus (incl. purified surface antigen)Rustybrendan Modino Other [employer] Other 10-345044-69-1720paairzbmx virus vaccine, unspecified formulationPaephraim mcdowell fort logan hospitalk [employer] [facility]10-19-2022influenza, seasonal, injectableSteven Alvares MD Work Phone: [facility] Work Phone: [phone], high dose seasonal, preservative-freeBenjamin Ball Other noBro[facility] [employer] Other [id number] High-Dose Quadrivalent 0.7 ML Intramuscular Suspension Prefilled SyringeBenjamin E Ball Work Phone: [phone]-JldftAllina Health [facility]ib[facility] 250 DO Work Phone: [phone]zl virus vaccine, unspecified formulationPatrick [employer] [facility]11-12-2021influenza, high dose seasonal, preservative-freeSteven Alvares MD Work Phone: [facility] Work Phone: [phone]-VfaBRqxp COVID-19 Vacc 30 MCG/0.3ML Intramuscular SuspensionBenjamin E Ball Work Phone: [facility]10-01-2021influenza virus vaccine, unspecified formulationPatricNow In Store [facility] [id number]-FbM-1 (COVID-19) mRNA BNT-162b2 vax [place] NORMAN [facility] [id number]-IhySPmpa COVID-19 Vacc 30 MCG/0.3ML Intramuscular SuspensionBenjamin E Ball Work Phone: [facility]03-31-2021 pneumococcal conjugate vaccine, 13 Cherise Alvares MD Work Phone: [facility] Work Phone: [phone]-PkfMGrrl COVID-19 Vacc 30 MCG/0.3ML Intramuscular SuspensionBenjamin E Ball Work Phone: [facility] Medical CenterComment on above: Result Comment: 2023-08-14: PVU1010-79-1539tlulosaik virus vaccine, unspecified formulationPaLIFEmee [facility]10-05-2020influenza, high dose seasonal, preservative-freeBenjamin E Ball Work Phone: [phone]-NndokNew Prague HospitalRoosevelt 250 DO Work Phone: [phone] virus vaccine, unspecified formulationPaGlide Pharmajulianna [employer] [facility] [id number] virus vaccine, split virus (incl. purified surface antigen)Nick Muniz Other [place] [employer] Other [id number] virus vaccine, unspecified formulationDO nGame Work Phone: [facility]09-01-2020influenza virus vaccine, unspecified formulationPaLIFEmee [facility]09-01-2020influenza, high dose seasonal, preservative-freeBenjamin E Ball Work Phone: [phone]-SfeclSt. Luke's Hospital 250 DO Work Phone: [phone]jnrwq virus vaccine, split virus (incl. purified surface antigen)Nick Muniz Other [facility] [employer] Other 10263311-19-7779uvglhxsst virus vaccine, unspecified formulationDO nGame Work Phone: [facility]10-10-2017influenza virus vaccine, unspecified formulationPaLIFEmee [facility]10-10-2017influenza, seasonal, injectableBenjamin E Ball Work Phone: [phone]-IcbywSt. Luke's Hospital 250 DO Work Phone: [phone] and diphtheria toxoids, adsorbed, preservative free, for adult use (5 Lf of tetanus toxoid and 2 Lf of diphtheria toxoid)Nick Muniz Other [facility]02-15-2017 pneumococcal polysaccharide vaccine, 23 valentBenjamin E Ball Work Phone: [facility]02-10-2017pneumococcal conjugate vaccine, 13 valentBenjamin E Ball Work Phone: [facility]02-10-2017pneumococcal Conjugate, unspecified formulation; Translations: [Need for prophylactic vaccination against Streptococcus pneumoniae (pneumococcus)]Nick Muniz Other [place] [employer] Other [id number], seasonal, Mariella Godoy DATA CENTER ARCHITECT-STREET ENGINEER Work Phone: [facility] Work Phone: [phone]dyugvv virus vaccine, split virus (incl. purified surface antigen)Nick Muniz Other [place] [employer] Other 11096332-03-0674zrifikfqn virus vaccine, unspecified formulationDO Adam vIon Work Phone: [facility]02-02-2011 pneumococcal polysaccharide vaccine, 23 valentChristopher Flavio Other [facility]07-07-2004tetanus toxoid, adsorbedBenjamin E Ball Work Phone: [phone]-EhkwoSt. Luke's Hospital 250 DO Work Phone: Payers DatePayer CategoryPayerPolicy [id number] 2025Private Health [id number] 2024Medicare [id number] 2024Medicare (Managed Care) [id number]584Lgtaefw Health [id number] [id number] 2.16.840.1.304060.3.57[id number] 2.16.840.1.087501.3.57[id number] 2.16.840.1.350180.3.57[id number] 2.16.840.1.558628.3.579.2.01135-16-4710Yfspeak8346895 2.16.840.1.595430.3.579.2.58267-16-7714Itxnqsv7372863 2.16840.1.935922.3.579.2.68836-68-6471Qeelodf9129805 2.16.840.1.041369.3.579.2.25843-73-5306Lzgoghb8436877 2.16.840.1.905374.3.57[id number] 2.16.840.1.520598.3.57[id number] 2..840.1.335252.3.579.2.21[id number] 2.16.840.1.139641.3.579.2.5[id number] 2.16.840.1.988006.3.57[id number] 2.16.840.1.216097.3.57[id number] 2.16840.1.926403.3.579.[id number] 2.16.840.1.940119.3.579.2.80[id number] 2.16.840.1.639134.3.57[id number] 2.16.840.1.791435.3.579.2.826627-53-3066Wswdmhs99155643 2.16.840.1.064990.3.579.2.268312-38-4546Rigomjj35504946 2.16840.1.705363.3.579.2.101159-89-1315Zsuuqck88511217 2.16840.1.190704.3.579.2.326453-62-5318Sntcedq58876797 2.840.1.796833.3.579.2.791871-82-6313Hmxirqx05953132 2.16840.1.202267.3.579.2.061154-21-1430Kmgxoak28676232 2.16840.1.332078.3.579.2.271522-36-6860Tehbsqv26062381 2.840.1.133002.3.579.2.36288-02-4326Gmvczua33993193 2.16840.1.630502.3.579.2.75531-83-8424Dpybzlh47323379 2.16840.1.761781.3.579.2.11207-70-7415Ppchsqi16129999 2.16840.1.591306.3.579.[id number] 2.16840.1.976906.3.579.2.727UnknownMEDICAREUnknownHCAP/HFA/FAP [id number] 2.16.840.1.491460.3.579.2.102Pkjpkuw51756557 2.16.840.1.659146.3.579.2.531 [id number] 2.16.840.1.245761.3.579.2.257Rirpevm11452736 2.16.840.1.536070.3.579.2.343Iqwjpwb04783957 2.16.840.1.514547.3.579.2.531 [id number] 2.16.840.1.046696.3.579.2.330Nrmofdt93793616 2.16.840.1.387163.3.579.2.531 Social History DateTypeDetailFacilityStart: 07-26-2023 End: 83-79-6562Xenyhoyr useCaffeine use-[facility] 250 DO Work Phone: Comment on above:1-2 servings;Start: 04-05-2021 End: 57-67-9212Zbphgat smoking statusNever smoked tobacco (finding)[facility] start: 07-26-2023 End: 24-31-9011Bog Assigned At [facility] start: 55-32-3162Lqw Assigned At [facility] Hospitalt[facility]: 39-68-9964Lvgwezs smoking statusNeverExecutive Urology of Genesis Hospitaltart: 22-08-7979Zqashsc use and exposureUser of smokeless tobaccoC[facility] Clinic Luther[facility] Hospital Work Phone: History of tobacco useChews TobaccoUnGalion Hospital Work Phone: Start: 10-13-2023 End: 38-35-3840Ncacnfhpa beverage intakeCurrent drinker of alcohol (finding) [facility] Work Phone: Start: 48-90-8121Cjt assigned at birthNot on file [facility] Work Phone: Start: 10-03-2023 End: 04-12-6541Dgcxenjc to SARS-CoV-2 (event)Not sureUnGalion HospitalStart: 03-27-2024 End: 71-77-8334Rqjqatihd beverage intakeEx-drinker (finding)[facility] Work Phone: Start: 03-25-2024 End: 16-08-9057KdxImvz (finding)[facility]: 34-22-5061Yvldfzf smoking status NHISTobacco smoking consumption unknown [facility] SystemSexual [facility] Start: 10-31-2024 End: 55-93-1176Rswlgutal beverage intakeLifetime non-drinker (finding)[facility] Work Phone: Start: 11-11-2024 End: 42-78-0052Eartqdc smoking status NHISEx-smoker (finding)[facility]: 11-11-2024 End: 75-53-5830FOOU Follow upSDOH Follow upMagruder Hospital Work Phone: Start: 01-02-2025 End: 44-76-5852Pnffgow smoking status NHISSmokes tobacco daily (finding) [facility] Goals DatePatient GoalDesired Activity/State Functional Status PtfqPukczwumtmXsimjiSslmmzmq82-73-7415Qfpeleqvxg statusPatient is Progressing Toward BaselineMagruder Hospital Work Phone: [phone]fmimgl statusPatient at Baseline [facility] Work Phone: [phone] statusPatient at Baseline [facility] Work Phone: [phone]qt statusPatient at Baseline [facility] Work Phone: [phone] statusPatient at Baseline [facility] Work Phone: [phone] statusPatient at Baseline [facility] Work Phone: [phone]ahu StatusN/AExec[facility]07-17-2023Functional StatusN/AExec[facility]10-03-2022Functional StatusN/A [facility] Mental Status WhcoCwocibyxrpAhsjwoMqpxwxkp11-73-5454Obmfxgplj functionCognitive Status Patient is Progressing Toward [facility] Work Phone: [phone] functionCognitive Status Patient at BaselineMagruder Hospital Work Phone: [phone] functionCognitive Status Patient at BaselineMagruder Hospital Work Phone: [phone] functionCognitive Status Patient at BaselineMagruder Hospital Work Phone: [phone] functionCognitive Status Patient at BaselineAs[facility] Work Phone: [phone] functionCognitive Status Patient at [facility] Work Phone: Clinical Notes 08-09-2021 to 02-16-2025 Note Date & TwbnWecsKcvybbur16-96-9743 [place] [address] Hospitalist H&P Signed Patient: Jose R Mcadamsandrew Rodriguez MR#: [id number] : 1955 Acct:[id number] Age/Sex: 69 / M Adm Date: 5 Loc: Room: 4R5734-3 Type: ADM IN Attending Dr: Gabriela Nobles MD Copies to: DO Gabriela Waller MD~ HPI DATE OF EXAMINATION: 02/16/25 CHIEF COMPLAINT: Shortness of breath HISTORY OF PRESENT ILLNESS: This is a 69-year-old male with past medical history of sarcoidosis with bronchiectasis who was recently admitted to [facility] on January 05 through January 09 due to dyspnea felt to be related to CHF with confirmed Takotsubo cardiomyopathy with apical ballooning. Other relevant past medical history is chronic hypoxic respiratory failure on 3 L nasal cannula, gout, shingles, COPD, bullous emphysema, BPH, A-fib, pulmonary sarcoidosis, carotid stenosis, chronic HFrEF, anemia, alcohol use, hypertension, acoustic neuroma, history of aspergilloma, GERD, diverticulosis, who presents today with worseningshortness of breath over the last few days. Patient states that he is usually short of breath with any sort of exertion, however he states that over the last few days his symptoms have gotten really worse. He denies any fever but states that he had some chills and a cough that was productive of whitish sputum. In the ED, patient was initially tachycardic and tachypneic as well as hypoxic, they had to initially placed him on on BiPAP however he improved to 3 L nasal cannula which is his baseline however patient failed I did test when he tried toambulate him in the ED. In the ED, CMP was unremarkable, his CBC did show hemoglobin of 11.5 otherwise his white blood cellcount and his physical were normal. His chest x-ray did not show any acute pathology. Atrial flutter diaphragm which is compatible withhis COPD and his chronic psychosis lesions. In the ED, patient received 1 dose of DuoNeb 3 mL, 1 dose of methylprednisolone 125 mg once as well as 1 dose of 1 L NS bolus continue to be admitted under hospitalist service for further workup and management Review of Systems Review of Systems All other systems reviewed & are negative unless noted below or in HPI [facility] Medical History H/O non-ST elevation myocardial infarction (NSTEMI) Takotsubo cardiomyopathy (~12/2024) History of sarcoidosis Acute on chronic hypoxic respiratory failure Non-ST elevation ID (NSTEMI) On home oxygen therapy Skin cancer removed [...] failure with reduced ejection fraction) Echo: LVEF 25% - 01/2015, Echo: LVEF 58% - 08/2015, Echo: LVEF 45-50%, normal RV size/function, mild aortic root dilatation 4.0 cm - 02/2024, Echo: LVEF 50% - 07/2024, Echo: LVEF 45-50%, LAE, LVH, normal RV size/function - 12/2024, Echo: apical balooning w/ LVEF 25-30% - 12/2024 Nonischemic cardiomyopathy MRI: cardiac sarcoidosis - 2015, LHC: normal coronary circulation - 2015, Hyponatremia Anemia Alcohol dependence Hypertension History of [...] Hx of CABG Social History Smoking Status: Unknown if ever smoked Tobacco Type: smokeless tobacco Substance Use Type: None Substance Abuse Comment: no alcohol past couple months; hx up to 4-6 beers daily Meds Medications and Allergies Allergies No Known Allergies Allergy (Verified 01/21/25 13:12) Home Medications finasteride 5 mg tablet 5 mg PO DAILY 09/08/23 [History Confirmed 02/16/25] latanoprost 0.005 % eye drops 1 drp Eye-Left HS 10/12/23 [History Confirmed 02/16/25] Oxygen 10/23/23 [History Confirmed 02/16/25] multivitamin with minerals 1 cap PO DAILY #90 caps 03/19/24 [Rx Confirmed 02/16/25] atorvastatin 40 mg tablet 40 mg PO QPM 30 days #30 tabs 03/20/24 [Rx Confirmed 02/16/25] metoprolol succinate 25 mg tablet,extended release 24 hr 25 mg PO DAILY 06/03/24[History Confirmed 02/16/25] pantoprazole 40 mg tablet,delayed release 40 mg PO DAILY.AC.BKFAST #0 tabs 07/09/24 [Rx Confirmed 02/16/25] tamsulosin 0.4 mg capsule See Rx Instructions .Route .COMPLEX #60 caps 08/11/24 [Rx Confirmed 02/16/25] dofetilide 250 mcg capsule 250 mcg PO Q12H 11/11/24 [History Confirmed 02/16/25] prednisolone acetate 1 % eye drops,suspension 1 drp Eye-Left QID Shingles 11/11/24 [History Confirmed 02/16/25] potassium chloride 10 mEq tablet,extended release (Klor-Con) 10 meq PO DAILY 30 days #30 tabs 11/19/24 [Rx Confirmed 02/16/25] ipratropium 0.5 mg-albuterol 3 mg (2.5 mg base)/3 mL nebulization soln 3 ml inhalation QID PRN shortness of breath 01/02/25 [History Confirmed 02/16/25] rivaroxaban 20 mg tablet (Xarelto) 20 mg PO QHS 01/02/25 [History Confirmed 02/16/25] valacyclovir 1 gram tablet 1,000 mg PO BID shingles in eye 01/02/25 [History Confirmed 02/16/25] ofloxacin 0.3 % eye drops 1 drp Eye-Left QID 01/05/25 [History Confirmed 02/16/25] aspirin 81 mg tablet,delayed release 81 mg PO DAILY 30 days #30 tabs 01/09/25 [Rx Confirmed 02/16/25] dapagliflozin propanediol 10 mg tablet 10 mg PO DAILY 30 days #30 tabs 01/09/25 [Rx Confirmed 02/16/25] magnesium oxide 400 mg (241.3 mg magnesium) tablet 400 mg PO DAILY 30 days #30 tabs 01/09/25 [Rx Confirmed 02/16/25] spironolactone 25 mg tablet 12.5 mg (1/2 x 25 mg) PO DAILY 30 days #15 tabs 01/09/25 [Rx Confirmed 02/16/25] furosemide 40 mg tablet 40 mg PO DAILY PRN edema 30 days #30 tabs 01/16/25 [Rx Confirmed 02/16/25] albuterol sulfate 90 mcg/actuation aerosol inhaler 1 puff inhalation Q6HR PRN shortness of breath or wheezing 01/21/25 [History Confirmed 02/16/25] Exam Physical Exam Vital Signs: Temp Pulse Resp BP Pulse Ox O2 Del Method O2 Flow Rate 97.6 F 87 22 117/71 100 Nasal Cannula 3 02/16/25 01:45 02/16/25 02:38 02/16/25 02:38 02/16/25 02:38 02/16/25 02:38 02/16/25 02:38 02/16/25 02:38 Narrative: Constitutional normal general appearance and alert, not in acute distress but ill-appearing. He was saturating well on 3 to 4 L nasal cannula HENMT HENMT: normocephalic, atraumatic, EOMI, PERRL Neck/C-Spine Neck/C-Spine: Supple, no JVD no Chest Chest: Yes normal inspection of the chest Respiratory Respiratory: Decreased bilateral air entry with expiratory wheezes, does have expiratory rhonchi aswell. Saturating well on 3 to nasal cannula. He failed his oxygen walk test became very dyspneic and in distress Cardiovascular regular rate and regular rhythm, normal S1-S2, no murmur Gastrointestinal abdomen normal to inspection, no signs of acute abdomen, no organomegaly Extremities No lower extremity edema noted, intact peripheral pulses bilateral Results - Hospitalist H&P Lab Results Labs: Laboratory Last Values Corrected WBC 6.3 X10E3/uL (4.1-10.5) 02/15/25 21:18 Uncorrected WBC Count 6.3 x10E3/uL (4.1-10.5) 02/15/25 21:18 RBC 3.87 x10E6/uL (3.90-5.60) L 02/15/25 21:18 Hgb 11.5 g/dL (13.0-17.0) L 02/15/25 21:18 Hct 34.3 % (38.8-50.0) L 02/15/25 21:18 MCV 88.7 fl (83.5-101) 02/15/25 21:18 MCH 29.8 pg (27.5-35.2) 02/15/25 21:18 MCHC 33.5 g/dL (32.5-35.6) 02/15/25 21:18 RDW 20.9 % (12.0-14.8) H 02/15/25 21:18 Plt Count 376 x10E3/uL (150-450) 02/15/25 21:18 MPV 7.5 fl (6.6-10.1) 02/15/25 21:18 Neut % (Auto) 67.2 % (.) 02/15/25 21:18 Lymph % (Auto) 18.5 % (.) 02/15/25 21:18 [place] % (Auto) 10.6 % (.) 02/15/25 21:18 Eos % (Auto) 2.7 % (.) 02/15/25 21:18 Baso % (Auto) 1.0 % (.) 02/15/25 21:18 Nucleat RBC Rel Count 0.0 /100 WBC (0-0.5) 02/15/25 21:18 Neut # (Auto) 4.3 x10E3/uL (1.8-7.7) 02/15/25 21:18 Lymph # (Auto) 1.2 x10E3/uL (1.00-4.8) 02/15/25 21:18 [place] # (Auto) 0.7 x10E3/uL (0.0-0.8) 02/15/25 21:18 Eos # (Auto) 0.2 x10E3/uL (0.0-0.45) 02/15/25 21:18 Baso # (Auto) 0.1 x10E3/uL (0.0-0.2) 02/15/25 21:18 Monocyte Dist Width 20.43 % (0.00-20.00) H 02/15/25 21:18 PT 22.6 Seconds (9.0-12.9) H 02/15/25 21:18 INR 2.0 02/15/25 21:18 PHA Creatinine Clear 50.57 02/15/25 21:18 Sodium 136 mmol/L (136-145) 02/15/25 21:18 Potassium 3.9 mmol/L (3.5-5.1) 02/15/25 21:18 Chloride 101 mmol/L (98-107) 02/15/25 21:18 Carbon Dioxide 27.4 mmol/L (21.0-31.0) 02/15/25 21:18 Anion Gap 11.5 mEq/L (6.0-15.0) 02/15/25 21:18 BUN 17 mg/dL (7-25) 02/15/25 21:18 Creatinine 1.14 mg/dL (0.70-1.30) 02/15/25 21:18 Est GFR (CKD-EPI) > 60.0 mL/Min 02/15/25 21:18 Glucose 99 mg/dL (70-100) 02/15/25 21:18 Calcium 9.5 mg/dL (8.6-10.3) 02/15/25 21:18 Total Bilirubin 0.5 mg/dl (0.3-1.0) 02/15/25 21:18 AST 25 U/L (13-39) 02/15/25 21:18 ALT 11 U/L (7-52) 02/15/25 21:18 Alkaline Phosphatase 146 U/L (34-104) H 02/15/25 21:18 Troponin I High Sens 7 ng/L (0-20) 02/15/25 21:18 B-Natriuretic Peptide 57.0 pg/mL (5-100) 02/15/25 21:18 Total Protein 7.1 gm/dL (6.4-8.9) 02/15/25 21:18 Albumin 3.8 gm/dL (3.5-5.7) 02/15/25 21:18 Globulin 3.3 gm/dL 02/15/25 21:18 Albumin/Globulin Ratio 1.2 02/15/25 21:18 SARS-CoV-2 Rap RNA(RT-PCR) Negative (Negative) 02/15/25 21:50 Microbiology Results Micro: Microbiology - Results from entire visit 02/15/25 21:50 Nasopharyngeal SARS-CoV-2, Influenza & RSV (PCR) - Final Assessment & Plan Assessment/Plan (1) Hx of sarcoidosis: (2) COPD exacerbation: (3) Acute on chronic hypoxic respiratory failure: Plan Acute on chronic hypoxic respiratory failure in the setting of COPD exacerbationand possible sarcoidosis flareup Cannot rule out commune acquired pneumonia CHF exacerbation is less likely Frailty and cachexia of pulmonary disease - Admit patient to medical floor telemetry - Start patient on IV Solu-Medrol 40 mg every 12 hours - Start doxycycline 100 mg mg IV twice daily -Start IV ceftriaxone 1 g every 24 hours -Obtain sputum culture - Start DuoNeb 4 times daily -Start Symbicort BID - Pulm consult given the patient's complicated history with sarcoidosis -PT/OT eval -Will need walk study on discharge -I reconciled pt's medications -Pt is on xarelto which I will continue for DVT PPx -Full code, discussed goals of care with the pt. Will update that in the chart IP vs OBS Justification Based on differential dx, clinical care plan, and risk of adverse events, if untreated, in my clinical judgement this patient requires an acute care setting as: INPATIENT because of an expectation ofan over 2 midnight stay. Estimated length of stay (# of days): 3 Documented By: Gabriela Nobles MD 02/16/25 0331 Signed By: 02/16/25 0344 [facility]09-05-2025 History of Present illness Narrative * Maya Fuentes CMA - 01/17/2025 11:00 AM EDT Patient here for EKG visit ordered by Ning Godoy [employer]OTOFLASH POWDER MIXER due to prolong QTc. Ning Godoy [employer]OTOFL[employer] POWDER MIXER in suite to review EKG prior to [...] done in office today [facility] Work Phone: [phone]) [phone] Evaluation + Plan note* Assessment & Plan Note - DANICA Arguelles - 01/16/2025 2:10 PM EDTAssociated Problem(s): Cardiac sarcoidosis August 2015 cMRI EF 58% Cardiac sarcoidosis involvement basal inferior wall and basal inferior septum. [facility] Work Phone: [phone] Miscellaneous Notes* Assessment & Plan Note - DANICA Arguelles - 01/16/2025 2:10 PM EDTAssociated Problem(s): Cardiac sarcoidosis August 2015 cMRI EF [...] - 01/16/2025 2:08 PM EDT Associated Problem(s): meterman (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 CHADS VASc 2 [...] Mar 2024 ECG in office today elba Altamirano 0.Jun hospitalization reported Qtc prolongation on dofetlide 250 mcg BID. Jan 09, 2025: inpatient ECG Qtc 548 documented in this [facility] Work Phone: [phone] Evaluation + Plan note* Assessment & Plan Note - DANICA Arguelles - 01/16/2025 2:09 PM EDTAssociated Problem(s): Cardiac and Vasculature July 2015 cardiac cath: angiographically normal coronaries May 2024 MPI No ischemia/infarct EF 57% [facility] Work Phone: [phone] Evaluation + Plan note* Assessment & Plan Note - DANICA Arguelles - 01/16/2025 2:08 PM EDTAssociated Problem(s): Chewing tobacco use Discussed risk of continued usage [facility] Work Phone: [phone] Evaluation + Plan note* Assessment & Plan Note - DANICA Arguelles - 01/16/2025 2:08 PM EDTAssociated Problem(s): half-way (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 CHADS VASc 2 anticoagulated on full dose Xarelto CR 0.86 Denies bleeding diathesis Discharge Hgb 9.9 In 2014 had GIB on coumadin (for LV thrombus) [facility] Work Phone: [phone] Evaluation + Plan note* Assessment & Plan Note - DANICA Arguelles - 01/16/2025 2:04 PM EDTAssociated Problem(s): LV dysfunction Jan 2015: TTE LVEF [...] dose at recent dischargeand has symptomatic hypotension [facility] Work Phone: [phone] 514-585709-04-2025 Evaluation + Plan note* Assessment & Plan Note - DANICA Arguelles - 01/16/2025 1:58 PM EDTAssociated Problem(s): 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 (Multi) Maintaining NSR during December 2024 hospitalization Last PAF Mar 2024 (was on amiodarone at the time and changed to dofetilide) [facility] Work Phone: [phone] Evaluation + Plan note* Assessment & Plan Note - DANICA Arguelles - 01/16/2025 1:50 PM EDTAssociated Problem(s): High risk medication use Prior amiodarone failure Dofetilide 250mcg BID - start date Mar 2024 ECG in office today elba Post. 0.Jun hospitalization reported Qtc prolongation on dofetlide 250 mcg BID. Jan 09, 2025: inpatient ECG Qtc 548 [facility] Work Phone: [phone] History of Present illness Narrative* Ning Ness DANICA Godoy - 01/15/2025 8:30 AM EDT Chief Complaint 'just feeling the same as usual' Reason for Visit Patient presents to the office today for outpatient follow-up for hospital follow up. Last evaluated in clinic by Dr. Gonzalez October 2024. Presents today in wheelchair, has been utilizing oxygen consistently for couple of months now. Accompanied by family member. December 2024: hospitalized at [facility] due to SOB. Seen in Cardiology consult Dr. Burroughs - diagnosedwith Type II NSTEMI; echo at bedside by [...] discharge and will have him go to thelab to check a potassium and magnesium. Also [...] dose at recent dischargeand has symptomatic hypotension half-way (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 CHADS VASc 2 [...] for Qtc tomorrow Ning Godoy MSN, DANICA, PMHNP-[facility] [place], [place] Please excuse any errors in grammar or translation related to this dictation. Voice recognition software was utilized to prepare this document. documented in this [facility] Work Phone: [phone]) [phone] Instructions* Patient Instructions* DANICA Arguelles - 01/15/2025 8:30 [...] sarcoidosis ECG for Qtc documented in this [facility] Work Phone: [phone]) 173-341108-28-2025 Discharge summary Author Jostin Larose [facility] CenterNote Date/TimeAugust 2024 1:[place] [address] Discharge Summary Signed Patient: Mayr Mcadams MR#: [id number] : 1955 Acct:[id number] Age/Sex: 69 / M Adm Date: 5 Loc: Room: [address] [place] [address]: Jostin Larose DO Copies to: DO Jostin Waller, ~ Providers Date of Admission: 01/05/25 Date of Discharge: 01/09/25 Discharging Provider: Jostin Larose Primary Care Provider: Adam Del Valle Consults: 01/05/25 02:39 Consult to Cardiology Routine Comment: Consulting Provider: [facility], [facility] Reason For Exam: abn trop Has Provider Been Notified: Yes Date of Notification: 01/05/25 Time of Notification: 07:26 01/05/25 02:40 Consult to Occupational Therapy Routine Comment: Physician Instructions: Consult to OT for:: Evaluation and Treat Consult to Physical Therapy Routine Comment: Physician Instructions: Consult to PT for:: Evaluation and Treat Discharge Diagnosis (1) Non-ST elevation ID (NSTEMI): (2) Takotsubo cardiomyopathy: (3) History of sarcoidosis: (4) Acute on chronic hypoxic respiratory failure: (5) Pulmonary sarcoidosis: (6) Atrial fibrillation: Final Diagnosis Final Discharge Diagnosis: as above Summary Hospital Course Hospital course: Mr Pema Gomes is a 69-year-old male who was 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 of shortness [...] to 50%, per the review of the electrical engineer on the case who discussed it with [...] Continuity of Care Document Health Concerns: A [facility] screening has identified you as FRAIL or [...] Strong:Four Ways to Beat the Frailty Risk https://www.[facility].org/health/glztekbx-zzq-wpqnawgckg/st bp-nddbrh-exxh- vdor-ee-omyu-trk-wdfemtx-ogzw Exam Physical Exam Vital Signs: Temp Pulse [...] Sodium 137, Potassium 4.9, Chloride 104, Carbon Adqspht07.9, Anion Gap 11.0, BUN 45 H, Creatinine 1.15, Est GFR (CKD-EPI) > 60.0, Glucose 132 H, Calcium 8.8, Magnesium 2.3 Documented By: Jostin Larose DO 01/09/25 1329 Signed By: <Electronically signed by Jostin Larose DO> 01/09/25 1341 [facility] Work Phone: 1(866) 215-140808-28-2025 Hospital Discharge instructionsAmbulatory Orders* Initiate Home Health Time Frame: 01/09/25, Location: Determined By Patient Additional Instructions Continue oxygen as per chronic orders Home health to manage: -RN/PT/OT/Aide/SW to eval and treat -Monitor VS per protocol -Fall precautions -Perform respiratory and cardiovascular assessments -Continue oxygen as per chronic orders -Assist with medication management and educationAs[facility] Work Phone: [phone]) [phone] Discharge [place] [id number] Discharge Summary Signed Patient: Mary Mcadams MR#: [id number] : 1955 Acct:[id number] Age/Sex: 69 / M Adm Date: 5 Loc: Room: [address] [place] [address]: Jostin Larose DO Copies to: DO Jostin Waller, DO~ Providers Date of Admission: 01/05/25 Date of Discharge: 01/09/25 Discharging Provider: Jostin Larose Primary Care Provider: Adam Del Valle Consults: 01/05/25 02:39 Consult to Cardiology Routine Comment: Consulting Provider: [facility], [facility] Reason For Exam: abn trop Has Provider Been Notified: Yes Date of Notification: 01/05/25 Time of Notification: 07:01/05/25 02:40 Consult to Occupational Therapy Routine Comment: Physician Instructions: Consult to OT for:: Evaluation and Treat Consult to Physical Therapy Routine Comment: Physician Instructions: Consult to PT for:: Evaluation and Treat Discharge Diagnosis (1) Non-ST elevation ID (NSTEMI): (2) Takotsubo cardiomyopathy: (3) History of sarcoidosis: (4) Acute on chronic hypoxic respiratory failure: (5) Pulmonary sarcoidosis: (6) Atrial fibrillation: Final Diagnosis Final Discharge Diagnosis: as above Summary Hospital Course Hospital course: Mr Pema Gomes is a 69-year-old male who was 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 of shortness [...] to 50%, per the review of the electrical engineer on the case who discussed it with [...] Continuity of Care Document Health Concerns: A [facility] screening has identified you as FRAIL or [...] Strong:Four Ways to Beat the Frailty Risk https://www.[facility].org/health/nnbxicru-zbc-wxbhouoarp/st pg-uhpipn-vnoo- dfas-km-yrzd-bsz-ocrfoyq-ktbu Exam Physical Exam Vital Signs: Temp Pulse [...] Sodium 137, Potassium 4.9, Chloride 104, Carbon Jbjhbsm53.9, Anion Gap 11.0, BUN 45 H, Creatinine 1.15, Est GFR (CKD-EPI) > 60.0, Glucose 132 H, Calcium 8.8, Magnesium 2.3 Documented By: Jostin Larose DO 01/09/25 1329 Signed By: 01/09/25 1341 [facility]08-28-2025 Consult note Author Chacho Burroughs [facility] CenterNote Date/TimeAugust 2024 10:48am [place] [address] Cardiology Consult Note Signed with Jamarcusenda Patient: Mary Mcadams MR#: [id number] : 1955 Acct:[id number] Age/Sex: 69 / M Adm Date: 5 Loc: Room: [address] [place] [address] Type: ADM IN Attending Dr: Jostin Larose [...] and no additional complaints, except as documented [facility] Medical History On home oxygen therapy Skin [...] # (Auto) 1.2 0.4 L (1.00-4.8) x10E3/uL [place] # (Auto) 0.6 0.1 (0.0-0.8) x10E3/uL Eos [...] ml @ 999 mls/hr IV .Q31M ONE Rx#:[id number] cefTRIAXone 1GM-*NS* 1 gm In 50 50 / 50 ml @ 100 mls/hr IV ONCE ONE Rx #:[id number] Oral 350 / 350 Output: Urine 150 [...] block) A&P - Cardiology (1) Non-ST elevation ID (NSTEMI): Code(s): I21.4 - Non-ST elevation (NSTEMI) [...] disease Documented By: Chacho Burroughs MD 01/05/25 1330 Signed By: <Electronically signed by MD Chacho Burroughs> 01/05/25 1350 [facility] Work Phone: 1(378) 747-201108-28-2025 Progress note Author Chacho Burroughs [facility] CenterNote Date/TimeAugust 2024 10:47am [place] [address] Cardiology Progress Note Signed Patient: Mary Mcadams MR#: [id number] : 1955 Acct:[id number] Age/Sex: 69 / M Adm Date: 5 Loc: 4P Room: 6D0355-1 Type: ADM IN Attending Dr: Jostin Larose [...] 2.3 A&P - Cardiology (1) Non-ST elevation ID (NSTEMI): Code(s): I21.4 - Non-ST elevation (NSTEMI) [...] signed by MD Chacho Burroughs> 01/09/25 1047 [facility] Work Phone: [phone]) [phone] [place] [address] Cardiology Consult Note Signed with Addenda Patient: Mary Mcadams MR#: [id number] : 1955 Acct:[id number] Age/Sex: 69 / M Adm Date: 5 Loc: Room: [address] [place] [address] Type: ADM IN Attending Dr: Jostin Larose DO Copies to: DO Chacho Waller MD Shawn J Larose, DO~ ADDENDUM1 I reviewed patient complete echocardiogram. [...] based on cardiac catheterization done back in 2016 that apparently had improved with medical therapy. [...] and no additional complaints, except as documented [facility] Medical History On home oxygen therapy Skin [...] # (Auto) 1.2 0.4 L (1.00-4.8) x10E3/uL [place] # (Auto) 0.6 0.1 (0.0-0.8) x10E3/uL Eos [...] ml @ 999 mls/hr IV .Q31M ONE Rx#:[id number] cefTRIAXone 1GM-*NS* 1 gm In 50 50 / 50 ml @ 100 mls/hr IV ONCE ONE Rx #:[id number] Oral 350 / 350 Output: Urine 150 [...] block) A&P - Cardiology (1) Non-ST elevation ID (NSTEMI): Code(s): I21.4 - Non-ST elevation (NSTEMI) [...] Chacho Burroughs MD 01/05/25 1334 Signed By: 01/05/25 1355 [facility]08-28-2025 [place] [address] Cardiology Progress Note Signed Patient: Mary Mcadams MR#: [id number] : 1955 Acct:[id number] Age/Sex: 69 / M Adm Date: 5 Loc: Room: [address] [place] [address] Type: ADM IN Attending Dr: Jostin Larose [...] 2.3 A&P - Cardiology (1) Non-ST elevation ID (NSTEMI): Code(s): I21.4 - Non-ST elevation (NSTEMI) [...] MD 01/09/25 1044 Signed By: 01/09/25 1047 [facility]08-27-2025 Progress note Author Chacho Burroughs [facility] CenterNote Date/TimeAugust 2024 4:24[place] [address] Cardiology Progress Note Signed Patient: Mary Mcadams MR#: [id number] : 1955 Acct:[id number] Age/Sex: 69 / M Adm Date: 5 Loc: Room: [address] [place] [address] Type: ADM IN Attending Dr: Jostin Larose [...] L A&P - Cardiology (1) Non-ST elevation ID (NSTEMI): Code(s): I21.4 - Non-ST elevation (NSTEMI) [...] <Electronically signed by MD Chacho Burroughs> 01/08/25 7060 [facility] Work Phone: 1(208) 220-568308-27-2025 [place] [address] Cardiology Progress Note Signed Patient: Mary Mcadams MR#: [id number] : 1955 Acct:[id number] Age/Sex: 69 / M Adm Date: 5 Loc: Room: [address] [place] [address] Type: ADM IN Attending Dr: Jostin Larose [...] L A&P - Cardiology (1) Non-ST elevation ID (NSTEMI): Code(s): I21.4 - Non-ST elevation (NSTEMI) [...] MD 01/08/25 1141 Signed By: 01/08/25 1624 [facility]08-27-2025 Progress note Author Jostin Larose [facility] CenterNote Date/TimeAugust 2024 12:58pm [place] [address] Hospitalist Progress Note Signed Patient: Mary Mcadams MR#: [id number] : 1955 Acct:[id number] Age/Sex: 69 / M Adm Date: 5 Loc: Room: [address] [place] [address] Type: ADM IN Attending Dr: Jostin Larose [...] Drops/5 Ml Bottle EYE-LEFT 1 drops QID ALXE Administration Dapagliflozin 10 mg 01/05/25 14:05 01/08/25 [...] initiate oral magnesium daily. (2) Non-ST elevation ID (NSTEMI): Plan: Secondary to CHF exacerbation (3) History of sarcoidosis: Plan: Likely component ? Will order DuoNebs today (4) Acute on chronic hypoxic respiratory failure: Plan: Continue to titrate oxygen as able to Plan ? DVT prophylaxis addressed ? Regular diet ? Full code Documented By: Jostin Larose DO 01/08/25 1255 Signed By: <Electronically signed by Jostin Larose DO> 01/08/25 1255 [facility] Work Phone: 1(491) [phone] Progress noteJoseph [place] [phone] Hospitalist Progress Note Signed Patient: Mary Mcadams MR#: [id number] : 1955 Acct:[id number] Age/Sex: 69 / M Adm Date: Loc: 4 Room: [id number] Type: ADM IN Attending Dr: Jostin Larose [...] initiate oral magnesium daily. (2) Non-ST elevation ID (NSTEMI): Plan: Secondary to CHF exacerbation (3) History of sarcoidosis: Plan: Likely component ? Will order DuoNebs today (4) Acute on chronic hypoxic respiratory failure: Plan: Continue to titrate oxygen as able to Plan ? DVT prophylaxis addressed ? Regular diet ? Full code Documented By: Jostin Larose DO 01/08/251254 Signed By: 01/08/25 1258 [facility]08-26-2025 Progress note Author Chacho Burroughs [facility] CenterNote Date/TimeAugust 2024 10:37am [place] [address] Cardiology Progress Note Signed Patient: Mary Mcadams MR#: [id number] : 1955 Acct:[id number] Age/Sex: 69 / M Adm Date: 5 Loc: Room: [address] [place] [address] Type: ADM IN Attending Dr: Jostin Larose [...] L A&P - Cardiology (1) Non-ST elevation ID (NSTEMI): Code(s): I21.4 - Non-ST elevation (NSTEMI) [...] signed by MD Chacho Burroughs> 01/07/25 1037 [facility] Work Phone: 1(223) 301-513708-26-2025 Progress note Author Jostin Larose [facility] CenterNote Date/TimeAugust 2024 10:09am [place] [address] Hospitalist Progress Note Signed Patient: Mary Mcadams MR#: [id number] : 1955 Acct:[id number] Age/Sex: 69 / M Adm Date: 5 Loc: 4 Room: 1J7190-2 Type: ADM IN Attending Dr: Jostin Larose [...] 80 20 107/70 96 Nasal Cannula 4 08/26/25 07:56 01/07/25 08:34 01/07/25 08:34 01/07/25 07:56 [...] A&P - Hospitalist Assessment/Plan (1) Non-ST elevation ID (NSTEMI): Plan: Secondary to CHF exacerbation (2) [...] signed by Jostin Larose DO> 01/07/25 1009 [facility] Work Phone: 1(266) 102-128708-26-[address] [address] Cardiology Progress Note Signed Patient: Mary Mcadams MR#: [id number] : 1955 Acct:[id number] Age/Sex: 69 / M Adm Date: 5 Loc: 4 Room: [address] [place] [address] Type: ADM IN Attending Dr: Jostin Larose [...] L A&P - Cardiology (1) Non-ST elevation ID (NSTEMI): Code(s): I21.4 - Non-ST elevation (NSTEMI) [...] Burroughs MD 01/07/25 1031 Signed By: 01/07/[address] [place], [place] 4165308-26-2025 Progress noteJoseph [place] [phone] Hospitalist Progress Note Signed Patient: Mary Mcadams MR#: [id number] : 1955 Acct:[id number] Age/Sex: 69 / M Adm Date: 5 Loc: Room: [address] [place] [address] Type: ADM IN Attending Dr: Jostin Larose [...] 01/05/25 07:30 01/07/25 07:34 Pantoprazole 40 Mg Tablet. PO 01/05/26 07:29 [...] A&P - Hospitalist Assessment/Plan (1) Non-ST elevation ID (NSTEMI): Plan: Secondary to CHF exacerbation (2) [...] DO 01/07/25 1001 Signed By: 01/07/25 1009 [facility]08-25-2025 Progress note Author Jostin Larose [facility] CenterNote Date/TimeAugust 2024 3:[place] [address] Hospitalist Progress Note Signed Patient: Mary Mcadams MR#: [id number] : 1955 Acct:[id number] Age/Sex: 69 / M Adm Date: 5 Loc: Room: [address] [place] [address] Type: ADM IN Attending Dr: Jostin Larose [...] Angela PRN Reason Stop Dose Admin Acetaminophen 650 [...] Ampul.Neb INHALATION 01/05/26 07:59 3 ml QID.RESP AELX Administration Aspirin 81 mg 01/05/25 09:00 01/06/25 [...] A&P - Hospitalist Assessment/Plan (1) Non-ST elevation ID (NSTEMI): Plan 1. Acute decompensated HFrEF Fkses-qo-xgzs ultrasound shows severely depressed LVEF. This is [...] signed by Jostin Larose DO> 01/06/25 1506 [facility] Work Phone: 1([phone]) 720-631908-25-2025 [place] [address] Hospitalist Progress Note Signed Patient: Mary Mcadams MR#: [id number] : 1955 Acct:[id number] Age/Sex: 69 / M Adm Date: 5 Loc: Room: [address] [place] [address] Type: ADM IN Attending Dr: Jostin Larose [...] A&P - Hospitalist Assessment/Plan (1) Non-ST elevation ID (NSTEMI): Plan 1. Acute decompensated HFrEF Mhwpz-op-ugkr ultrasound shows severely depressed LVEF. This is [...] DO 01/06/25 1504 Signed By: 01/06/25 1506 [facility]08-25-2025 Progress note Author Chacho Burroughs [facility] CenterNote Date/TimeAugust 2024 11:44am [place] [address] Cardiology Progress Note Signed with Addenda Patient: Mary Mcadams MR#: [id number] : 1955 Acct:[id number] Age/Sex: 69 / M Adm Date: 5 Loc: Room: [address] [place] [address] Type: ADM IN Attending Dr: Jostin Larose [...] Sens A&P - Cardiology (1) Non-ST elevation ID (NSTEMI): Code(s): I21.4 - Non-ST elevation (NSTEMI) [...] <Electronically signed by MD Chacho Burroughs> 01/06/25 1140 [facility] Work Phone: 1(754) 555-251908-25-2025 [place] [phone] Cardiology Progress Note Signed with Addenda Patient: Mary Mcadams MR#: [id number] : 1955 Acct:[id number] Age/Sex: 69 / M Adm Date: 5 Loc: 4P Room: [address] [place] [address] Type: ADM IN Attending Dr: Jostin Larose [...] Sens A&P - Cardiology (1) Non-ST elevation ID (NSTEMI): Code(s): I21.4 - Non-ST elevation (NSTEMI) [...] MD 01/06/25 1140 Signed By: 01/06/25 1142 [facility]08-24-2025 Progress note Author Altaf Jones [facility] CenterNote Date/TimeAugust 2024 2:09pm[place] [address] Hospitalist Progress Note Signed Patient: Mary Mcadams MR#: [id number] : 1955 Acct:[id number] Age/Sex: 69 / M Adm Date: 5 Loc: Room: [address] [place] [address] Type: ADM IN Attending Dr: Altaf Jones MD Copies to: ~ Date of Service: 01/05/2025 Subjective Subjective Narrative: Patient has obvious orthopnea when laying flat. Dry cough. No chest pain Heart regular, no gallop rub. Positive JVD. Mqeza-vz-kbca ultrasound with severely decreased LVEF. No effusion. [...] 01/05/25 07:30 01/05/25 09:02 Pantoprazole 40 Mg Tablet.Dr BILLINGS 01/05/26 07:29 40 mg DAILY.AC.BKFAST ALEX Administration [...] A&P - Hospitalist Assessment/Plan (1) Non-ST elevation ID (NSTEMI): Plan 1. Acute decompensated HFrEF Nopkf-aq-jwjf ultrasound shows severely depressed LVEF. This is [...] home Documented By: Altaf Jones MD 01/05/25 140 Signed By: <Electronically signed by Altaf Jones MD> 01/05/25 1400 [facility] Work Phone: 1(688) 945-536208-24-2025 [place] [address] Hospitalist Progress Note Signed Patient: Mary Mcadams MR#: [id number] : 1955 Acct:[id number] Age/Sex: 69 / M Adm Date: 5 Loc: 4 Room: [address] [place] [address] Type: ADM IN Attending Dr: Altaf Jones MD Copies to: ~ Date of Service: 01/05/2025 Subjective Subjective Narrative: Patient has obvious orthopnea when laying flat. Dry cough. No chest pain Heart regular, no gallop rub. Positive JVD. Xradk-zr-ipse ultrasound with severely decreased LVEF. No effusion. [...] A&P - Hospitalist Assessment/Plan (1) Non-ST elevation ID (NSTEMI): Plan 1. Acute decompensated HFrEF Ygixj-ge-bukk ultrasound shows severely depressed LVEF. This is [...] MD 01/05/25 1402 Signed By: 01/05/25 1409 [facility]08-24-2025 Radiology Diagnostic study note [facility] Main [place] [address] [place] [address] CT Scan Report Signed Patient: Mary Mcadams MR#: [id number] : 1955 Acct:[id number] Age/Sex: 69 / M ADM Date: 5 Loc: Room: [address] [place] [address] Type: ADM IN Attending Dr: Altaf Jones [...] Varela M.D. 01/05/2025 11:46 AM Dictation Location: [place] [address] Transcribed By: [facility] 01/05/25 1146 Dictated By: Juliocesar Varela II, MD 01/05/25 1138 Signed By: 01/05/25 1146 [facility] Work Phone: 1(785) 845-674308-24-2025 History and physical note Author Elsie Leonard [facility] CenterNote Date/TimeAugust 2024 4:14[place] [address] Hospitalist H&P Signed Patient: Mary Mcadams MR#: [id number] : 1955 Acct:[id number] Age/Sex: 69 / M Adm Date: 5 Loc: Room: [address] [place] [address] Type: ADM IN Attending Dr: Elsie Leonard [...] chest did not reveal any pulmonary embolism [facility] Medical History (Updated 01/05/25 @ 01:19 by [...] % (Auto) 12.3 % (.) 01/04/25 22:10 [place] % (Auto) 6.2 % (.) 01/04/25 22:10 Eos % (Auto) 3.2 % (.) 01/04/25 22:10 Baso % (Auto) 0.6 % (.) 01/04/25 22:10 Nucleat RBC Rel Count 0.1 /100 WBC (0-0.5) 01/04/25 22:10 Neut # (Auto) 7.9 x10E3/uL (1.8-7.7) H 01/04/25 22:10 Lymph # (Auto) 1.2 x10E3/uL (1.00-4.8) 01/04/25 22:10 [place] # (Auto) 0.6 x10E3/uL (0.0-0.8) 01/04/25 22:10 [...] Assessment & Plan Assessment/Plan (1) Non-ST elevation ID (NSTEMI): Plan 1. Acute on chronic (2 [...] <Electronically signed by Elsie Leonard MD> 01/05/25 0417 [facility] Work Phone: 1(159) 794-895408-24-2025 History and physical [place] [phone] Hospitalist H&P Signed Patient: Mary Mcadams MR#: [id number] : 1955 Acct:[id number] Age/Sex: 69 / M Adm Date: 5 Loc: 4P Room: 5L3527-6 Type: ADM IN Attending Dr: Elsie Leonard [...] chest did not reveal any pulmonary embolism [facility] Medical History (Updated 01/05/25 @ 01:19 by [...] % (Auto) 12.3 % (.) 01/04/25 22:10 [place] % (Auto) 6.2 % (.) 01/04/25 22:10 Eos % (Auto) 3.2 % (.) 01/04/25 22:10 Baso % (Auto) 0.6 % (.) 01/04/25 22:10 Nucleat RBC Rel Count 0.1 /100 WBC (0-0.5) 01/04/25 22:10 Neut # (Auto) 7.9 x10E3/uL (1.8-7.7) H 01/04/25 22:10 Lymph # (Auto) 1.2 x10E3/uL (1.00-4.8) 01/04/25 22:10 [place] # (Auto) 0.6 x10E3/uL (0.0-0.8) 01/04/25 22:10 [...] Assessment & Plan Assessment/Plan (1) Non-ST elevation ID (NSTEMI): Plan 1. Acute on chronic (2 [...] MD 01/05/25 0354 Signed By: 01/05/25 0414 [facility]08-24-2025 Evaluation note* Diagnosis Onset Date Resolution Status Admit Date Takotsubo cardiomyopathy 2024 acuteAugust 2024 1:53amAcute on chronic hypoxic respiratory failure inactiveAugust 2024 1:53amHistory of sarcoidosisinactiveAugust 2024 1:53amNon-ST elevation ID (NSTEMI)inactiveAugust 2024 1:53am Bronchiectasis, uncomplicatedacuteSept2024 1:09pmBullous emphysema acuteSept2024 1:09pmCardiac sarcoidosisacuteSept2024 1:09pmChronic respiratory failure with hypoxiaacuteSept2024 1:09pm History of aspergillomaacuteSept2024 1:09pmPulmonary sarcoidosisacute January 21, 2025 1:09pmAcute on chronic hypoxic respiratory failureacute February 16, 2025 2:24amBronchiectasis, uncomplicatedacuteOctober 2024 2:24amCardiac sarcoidosisacuteOctober 2024 2:24amChronic HFrEF (heart failure with reduced ejection fraction)acuteOctober 2024 2:24amCOPD exacerbationacuteOct2024 2:24amHistory of aspergillomaacuteOctober 2024 2:24amHx of sarcoidosisacuteOctober 2024 2:24amMyalgiaacute February 16, 2025 2:24amPulmonary sarcoidosisacuteOctober 2024 2:24am [facility] Work Phone: 1(692) 435-854008-24-2025 Evaluation note* Diagnosis Onset Date Resolution Status Admit Date Takotsubo cardiomyopathy 2024 acuteAugust 2024 1:53amAcute on chronic hypoxic respiratory failure inactiveAugust 2024 1:53amHistory of sarcoidosisinactiveAugust 2024 1:53amNon-ST elevation ID (NSTEMI)inactiveAugust 2024 1:53amBullous emphysemaacuteSeptember 2024 1:09pmChronic respiratory failure with hypoxia acuteSeptember 2024 1:09pmBronchiectasis, uncomplicatedinactiveSeptember 2024 1:09pmCardiac sarcoidosisinactiveSept2024 1:09pmHistory of aspergillomainactiveSept2024 1:09pmPulmonary sarcoidosisinactive January 21, 2025 1:09pmAcute on chronic hypoxic respiratory failureinactive February 16, 2025 2:24amBronchiectasis, uncomplicatedinactiveOctober 2024 2:24amCardiac sarcoidosisinactiveOctober 2024 2:24amChronic HFrEF (heart failure with reduced ejection fraction)inactiveOctober 2024 2:24amCOPD exacerbationinactiveOctober 2024 2:24amHistory of aspergillomainactive February 16, 2025 2:24amHx of sarcoidosisinactiveOctober 2024 2:24amMyalgia inactiveOctober 2024 2:24amPulmonary sarcoidosisinactiveOctober 2024 2:24am [facility] Work Phone: 1([phone]) [phone] Evaluation note* Diagnosis Onset Date Resolution Status Admit Date Anemia acuteJuly 2024 11:39amAtrial fibrillationacuteJuly 2024 11:39amChronic HFrEF (heart failure with reduced ejection fraction)acuteJuly 2024 11:39am Chronic respiratory failure with hypoxiaacuteJuly 2024 11:39amNonischemic cardiomyopathyacuteJuly 2024 11:39amSarcoidosis of lungresolvedJuly 2024 11:39amAcute exacerbation of chronic obstructive pulmonary disease (COPD) inactiveJuly 2024 11:39amAcute cystitisnoneactiveJuly 2024 11:39am Takotsubo owhvdjkvnigehu1798cngkfMbnoxx 2024 1:53amAcute on chronic hypoxic respiratory failureinactiveAugust 2024 1:53amHistory of sarcoidosisinactiveAugust 2024 1:53amNon-ST elevation ID (NSTEMI)inactive January 05, 2025 1:53amBronchiectasis, uncomplicatedacuteSept2024 1:09pmBullous emphysemaacuteSept2024 1:09pmCardiac sarcoidosisacute January 21, 2025 1:09pmChronic respiratory failure with hypoxiaacuteSept2024 1:09pmHistory of aspergillomaacuteSept2024 1:09pmPulmonary sarcoidosisacuteSept2024 1:09pmAcute on chronic hypoxic respiratory failureacuteOctober 2024 2:24amCOPD exacerbationacuteOctober 2024 2:24amHx of sarcoidosisacuteOctober 2024 2:24amMyalgiaacuteOctober 2024 2:24am [facility] Work Phone: 1(128) 856-626107-01-2025 Discharge summary Author Hoang Conner [facility] CenterNote Date/TimeJuly 2024 2:14[place] [address] Discharge Summary Signed Patient: Mary Mcadams MR#: [id number] : 1955 Acct:[id number] Age/Sex: 69 / M Adm Date: 5 Loc: Room: [address] [place] [address]: Hoang Conner DO Copies to: [...] Plan Discharge Plan Patient Disposition: Home Health [facility] Activity: No Activity Restriction Diet: Low-Fat and [...] 2 liters at HS and napping DME [facility] Ellipta 200-62.5-25 mcg blister with [...] Determined by Patient Ordered By: Hoang Conner DME Home Medical Equipment (Routine) Timeframe: 1 Day Location: Determined by Patient Ordered By: Hoang Conner Follow Up: Adam Del Valle DO [Primary Care Provider, Internal Medicine] - 11/18/24 11:45 am Referral Note: Follow-up with your Primary Care Provider, call office to reschedule if needed. Continuity of Care Document Health Concerns: A [facility] screening has identified you as FRAIL or [...] Strong:Four Ways to Beat the Frailty Risk [email or web address]/rtsrqebf-fgy-dpeezlajkw/st rx-gdiyyn-oeep- thrt-wb-hkdn-gqw-ictlcqg-gkpk Exam Physical Exam Vital Signs: Temp Pulse [...] Neut % (Auto) 93.0, Lymph% (Auto) 4.1, [place] % (Auto) 2.8, Eos % (Auto) 0.0, Baso % (Auto) 0.1, Nucleat RBC Rel Count 0.0, Neut # (Auto) 17.1 H, Lymph # (Auto) 0.7 L, [place] # (Auto) 0.5, Eos # (Auto) 0.0, [...] <Electronically signed by Hoang Conner DO> 11/12/[address] [place] [address] Work Phone: 1(772) 648-955707-01-2025 [place] [phone] Discharge Summary Signed Patient: Mary Mcadams MR#: [id number] : 1955 Acct:[id number] Age/Sex: 69 / M Adm Date: 5 Loc: Room: [address] [place] [address]: Hoang Conner DO Copies to: [...] Plan Discharge Plan Patient Disposition: Home Health [facility] Activity: No Activity Restriction Diet: Low-Fat and [...] 2 liters at HS and napping DME [facility] Ellipta 200-62.5-25 mcg blister with [...] Continuity of Care Document Health Concerns: A [facility] screening has identified you as FRAIL or [...] Strong:Four Ways to Beat the Frailty Risk [email or web address]://www.[email or web address]/health/yekxkgqs-ccw-znegolpldn/st rj-ndfgvp-eakl- epdp-tn-ehud-fut-dpszdcx-ghot Exam Physical Exam Vital Signs: Temp Pulse [...] Neut % (Auto) 93.0, Lymph% (Auto) 4.1, [place] % (Auto) 2.8, Eos % (Auto) 0.0, Baso % (Auto) 0.1, Nucleat RBC Rel Count 0.0, Neut # (Auto) 17.1 H, Lymph # (Auto) 0.7 L, [place] # (Auto) 0.5, Eos # (Auto) 0.0, [...] 11/12/24 12 51 Signed By: 11/12/24 1414 [facility]06-30-2025 Progress note Author Hoang Conner [facility] CenterNote Date/TimeJune 2024 1:12p[place] [phone] Progress Note Signed Patient: Mary Mcadams MR#: [id number] : 1955 Acct:[id number] Age/Sex: 69 / M Adm Date: 5 Loc: 3T Room: [address] [place] [address] Type: ADM IN Attending Dr: Hoang Conner [...] <Electronically signed by Hoang Conner DO> 11/11/24 [facility] Work Phone: 1([phone]) 880-708206-30-[address] [address] Progress Note Signed Patient: Mary Mcadams MR#: [id number] : 1955 Acct:[id number] Age/Sex: 69 / M Adm Date: 5 Loc: 3T Room: [address] [place] [address] Type: ADM IN Attending Dr: Hoang Conner [...] DO 11/11/24 13 10 Signed By: 11/11/[address] [place], [place] 4441006-30-2025 History and physical note Author Silvano Reed [facility] CenterNote Date/TimeJune 2024 3:30[place] [address] Hospitalist H&P Signed Patient: Mary Mcadams MR#: [id number] : 1955 Acct:[id number] Age/Sex: 69 / M Adm Date: 5 Loc: ER Room: Type: [facility] ER Attending Dr: Copies to: Adam [...] except as mentioned elsewhere in the documentation. [facility] Medical History (Updated 11/11/24 @ 03:27 by [...] 11/10/24 23: MCH 27.0 pg (27.5-35.2) L 11/10/24: MCHC 33.4 g/dL (32.5-35.6) 11/10/24 23: RDW 16.5 % (12.0-14.8) H 11/10/24 23: Plt Count 262 x10E3/uL (150-450) 11/10/24 23: MPV 7.9 fl (6.6-10.1) 11/10/24 23: Neut % (Auto) 66.5 % (.) 11/10/24 23: Lymph % (Auto) 18.7 % (.) 11/10/24 23: [place] % (Auto) 9.3 % (.) 11/10/24 23: Eos % (Auto) 5.0 % (.) 11/10/24 23: Baso % (Auto) 0.5 % (.) 11/10/24 23: Nucleat RBC Rel Count 0.1 /100 WBC (0-0.5) 11/10/24 23: Neut # (Auto) 4.3 x10E3/uL (1.8-7.7) 11/10/24 23: Lymph # (Auto) 1.2 x10E3/uL (1.00-4.8) 11/10/24 23:30 [place] # (Auto) 0.6 x10E3/uL (0.0-0.8) 11/10/24 23:30 [...] (7-25) 11/10/24: Creatinine 0.80 mg/dL (0.70-1.30) 11/10/24 23:30 Est GFR (CKD-EPI) > 60.0 mL/Min 11/10/24: Glucose 100 mg/dL (70-100) 11/10/24: Calcium 9.8 mg/dL (8.6-10.3) 11/10/24: Magnesium 1.6 mg/dL (1.9-2.7) L 11/10/24: Total Bilirubin 0.6 mg/dl (0.3-1.0) 11/10/24 23: AST 19 U/L (13-39) 11/10/24 23: ALT 10 U/L (7-52) 11/10/24 23: Alkaline Phosphatase 149 U/L (34-104) H 11/10/24 23: Total Creatine Kinase 27 U/L (30-223) L 11/10/24 23:30 Troponin I High Sens 4 ng/L (0-20) 11/10/24 23: B-Natriuretic Peptide 187.0 pg/mL (5-100) H 11/10/24 23:30 Total Protein 7.5 gm/dL (6.4-8.9) 11/10/24 23:30 Albumin 3.9 gm/dL (3.5-5.7) 11/10/24 23:30 Globulin 3.6 gm/dL 11/10/24 23:30 Albumin/Globulin Ratio 1.1 11/10/24 23:30 Urine Color Light-yellow (Yellow) 11/10/24 23:15 Urine Appearance Clear (Clear) 11/10/24 23:15 Urine pH 5.5 (5.0-9.0) 11/10/24 23:15 Ur Specific [place] 1.010 (1.001-1.030) 11/10/24 23:15 Urine Protein Negative [...] <Electronically signed by Silvano Reed DO> 11/11/24329 [facility] Work Phone: 1(274) 415-857806-30-2025 Evaluation note* Diagnosis Onset Date Resolution Status Admit Date Bullous emphysema acuteJune 2024 3:15amChronic respiratory failure with hypoxiaacuteJune 2024 3:15amPulmonary sarcoidosisacuteJune 2024 3:15amAcute exacerbation of chronic obstructive pulmonary disease (COPD)inactiveJune 2024 3:15amAcute UTIdeletedJune 2024 3:15amArrhythmiadeletedJune 2024 3:15amBreath shortnessdeletedJune 2024 3:15amCorticosteroid dependencedeletedJune 2024 3:15am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deletedJune 2024 3:15amAnemiaacuteJuly 2024 11:39amAtrial fibrillationacuteJuly 2024 11:39amChronic HFrEF (heart failure with reduced ejection fraction) acuteJuly 2024 11:39amChronic respiratory failure with hypoxiaacuteJuly 2024 11:39amNonischemic cardiomyopathyacuteJuly 2024 11:39am Sarcoidosis of lungresolvedly 2024 11:39amAcute exacerbation of chronic obstructive pulmonary disease (COPD)inactively 2024 11:39amAcute cystitis noneactively 2024 11:39am [facility] Work Phone: 1([phone]) 589-858806-30-2025 Evaluation note* Diagnosis Onset Date Resolution Status Admit Date Bullous emphysema acuteNovember 11, 2024 3:15amChronic respiratory failure with hypoxiaacuteJune 2024 3:15amPulmonary sarcoidosisacuteNovember 11, 2024 3:15amAcute exacerbation of chronic obstructive pulmonary disease (COPD)inactiveJune 2024 3:15amAcute UTIdeletedJune 2024 3:15amArrhythmiadeletedJune 2024 3:15amBreath shortnessdeletedJune 2024 3:15amCorticosteroid dependencedeletedJune 2024 3:15am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deletedJune 2024 3:15amAnemiaacuteJuly 2024 11:39amAtrial fibrillationacuteJuly 2024 11:39amChronic HFrEF (heart failure with reduced ejection fraction) acuteJuly 2024 11:39amChronic respiratory failure with hypoxiaacuteJuly 2024 11:39amNonischemic cardiomyopathyacuteJuly 2024 11:39am Sarcoidosis of lungresolvedJuly 2024 11:39amAcute exacerbation of chronic obstructive pulmonary disease (COPD)inactiveJuly 2024 11:39amAcute cystitis noneactiveJuly 2024 11:39amAcute on chronic hypoxic respiratory failure acuteAugust 2024 1:53amHistory of sarcoidosisacuteAugust 2024 1:53am Non-ST elevation ID (NSTEMI)acuteAugust 2024 1:53am [facility] Work Phone: 1(429) 666-469806-30-2025 Evaluation note* Diagnosis Onset Date Resolution Status Admit Date Bullous emphysema acuteJune 2024 3:15amChronic respiratory failure with hypoxiaacuteJune 2024 3:15amPulmonary sarcoidosisacuteJune 2024 3:15amAcute exacerbation of chronic obstructive pulmonary disease (COPD)inactiveJune 2024 3:15amAcute UTIdeletedJune 2024 3:15amArrhythmiadeletedV[facility] Hospitale 2024 3:15amBreath shortnessdeletedVidant Pung[facility] Hospitale 2024 3:15amCorticosteroid dependencedeletedV[facility] 2024 3:15am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deletedVidant Pungo Hospitale 2024 3:15amAnemiaacuteJuly 2024 11:39amAtrial fibrillationacutely 2024 11:39amChronic HFrEF (heart failure with reduced ejection fraction) acuteJuly 2024 11:39amChronic respiratory failure with hypoxiaacuteJuly 2024 11:39amNonischemic cardiomyopathyacuteJuly 2024 11:39am Sarcoidosis of lungresolvedJuly 2024 11:39amAcute exacerbation of chronic obstructive pulmonary disease (COPD)inactiveJuly 2024 11:39amAcute cystitis noneactively 2024 11:39amAcute on chronic hypoxic respiratory failure acuteAugust 2024 1:53amHistory of sarcoidosisacuteAugust 2024 1:53am Non-ST elevation ID (NSTEMI)acuteAugust 2024 1:53amTakotsubo cardiomyopathyacuteAugust 2024 1:53am [facility] Work Phone: 1([phone]) 993-385706-30-2025 Evaluation note* Diagnosis Onset Date Resolution Status Admit Date Bullous emphysema acuteJune 2024 3:15amChronic respiratory failure with hypoxiaacuteJune 2024 3:15amPulmonary sarcoidosisacuteJune 2024 3:15amAcute exacerbation of chronic obstructive pulmonary disease (COPD)inactiveJune 2024 3:15amAcute UTIdeletedJune 2024 3:15amArrhythmiadeletedVid[facility] Hospitale 2024 3:15amBreath shortnessdeletedVidant Pungo Hospitale 2024 3:15amCorticosteroid dependencedeletedJune 2024 3:15am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deletedVidant Pungo Hospital2024 3:15amAnemiaacuteJuly 2024 11:39amAtrial fibrillationacuteJuly 2024 11:39amChronic HFrEF (heart failure with reduced ejection fraction) acuteJuly 2024 11:39amChronic respiratory failure with hypoxiaacuteJuly 2024 11:39amNonischemic cardiomyopathyacuteJuly 2024 11:39am Sarcoidosis of lungresolvedJuly 2024 11:39amAcute exacerbation of chronic obstructive pulmonary disease (COPD)inactiveJuly 2024 11:39amAcute cystitis noneactiveJuly 2024 11:39amTakotsubo pmcukfigyqxtfj8957zfjwvClmbnl 2024 1:53amAcute on chronic hypoxic respiratory failureinactiveAugust 2024 1:53amHistory of sarcoidosisinactiveAugust 2024 1:53amNon-ST elevation ID (NSTEMI)inactiveAugust 2024 1:53amBronchiectasis, uncomplicatedacute Vanessa 2024 1:09pmBullous emphysemaacuteSeptember 2024 1:09pm Cardiac sarcoidosisacuteSeptember 2024 1:09pmChronic respiratory failure with hypoxiaacuteSeptember 2024 1:09pmHistory of aspergillomaacuteSeptember 2024 1:09pmPulmonary sarcoidosisacuteSeptember 2024 1:09pm [facility] Work Phone: 1(989) 274-893306-30-2025 [place] [address] Hospitalist H&P Signed Patient: Mary Mcadams MR#: [id number] : 1955 Acct:[id number] Age/Sex: 69 / M Adm Date: 5 Loc: ER Room: Type: [facility] ER Attending Dr: Copies to: Adam Del Valle,DO Hasmukh Vides, DO Silvano Reed, ~ HPI DATE OF EXAMINATION: 11/11/24 CHIEF [...] except as mentioned elsewhere in the documentation. [facility] Medical History (Updated 11/11/24 @ 03:27 by [...] 23:30 Hgb 10.5 g/dL (13.0-17.0) L 11/10/24 23: Hct 31.6 % (38.8-50.0) L 11/10/24 23: MCV 80.8 fl (83.5-101) L 11/10/24 23: MCH 27.0 pg (27.5-35.2) L 11/10/24: MCHC 33.4 g/dL (32.5-35.6) 11/10/24: RDW 16.5 % (12.0-14.8) H 11/10/24: Plt Count 262 x10E3/uL (150-450) 11/10/24: MPV 7.9 fl (6.6-10.1) 11/10/24: Neut % (Auto) 66.5 % (.) 11/10/24: Lymph % (Auto) 18.7 % (.) 11/10/24: [place] % (Auto) 9.3 % (.) 11/10/24: Eos % (Auto) 5.0 % (.) 11/10/24: Baso % (Auto) 0.5 % (.) 11/10/24: Nucleat RBC Rel Count 0.1 /100 WBC (0-0.5) 11/10/24: Neut # (Auto) 4.3 x10E3/uL (1.8-7.7) 11/10/24: Lymph # (Auto) 1.2 x10E3/uL (1.00-4.8) 11/10/24 23:30 [place] # (Auto) 0.6 x10E3/uL (0.0-0.8) 11/10/24: Eos # (Auto) 0.3 x10E3/uL (0.0-0.45) 11/10/24: Baso # (Auto) 0.0 x10E3/uL (0.0-0.2) 11/10/24: Monocyte Dist Width 18.48 % (0.00-20.00) 11/10/24 23: PHA Creatinine Clear 77.17 11/10/24 23:30 Sodium 133 mmol/L (136-145) L 11/10/24 23:30 Potassium 4.1 mmol/L (3.5-5.1) 11/10/24 23:30 Chloride 98 mmol/L (98-107) 11/10/24 23: Carbon Dioxide 28.0 mmol/L (21.0-31.0) 11/10/24 23:30 Anion Gap 11.1 mEq/L (6.0-15.0) 11/10/24 23:30 BUN 14 mg/dL (7-25) 11/10/24 23:30 Creatinine 0.80 mg/dL (0.70-1.30) 11/10/24 23:30 Est GFR (CKD-EPI) > 60.0 mL/Min 11/10/24 23: Glucose 100 mg/dL (70-100) 11/10/24 23: Calcium 9.8 mg/dL (8.6-10.3) 11/10/24 23: Magnesium 1.6 mg/dL (1.9-2.7) L 11/10/24 23:30 [...] pH 5.5 (5.0-9.0) 11/10/24 23:15 Ur Specific [place] 1.010 (1.001-1.030) 11/10/24 23:15 Urine Protein Negative [...] Reed DO 0320 Signed By: 11/11/24 0330 [facility]06-19-2025 History of Present illness Narrative * Shannon [...] Diskus) 500-50 mcg/dose diskus inhaler 1 puff eteqfxisoje-bpvltnrbz-sjeiyjwq (TRELEGY-ELLIPTA) 200-62.5-25 mcg blister with device Ultoavnnnmd-Sxttklush-Vweohcrf (Trelegy Ellipta) 200-62.5-25 mcg blister with device Active 1 INH INHALATION Twoal779 October 22, 2023 11:00pm Rinse after use [...] and plan. [facility] Work Phone: [phone] Instructions* Patient Instructions* Audra Morales LPN - [...] Follow up [facility] Work Phone: 1(859) [phone] Evaluation note* Diagnosis Onset Date Resolution Status Admit Date Anemia acuteApril 2024 2:26pmAtrial fibrillationacuteApril 2024 2:26pm Chronic HFrEF (heart failure with reduced ejection fraction)acuteApril 2024 2:26pmChronic respiratory failure with hypoxiaacuteApril 2024 2:26pm HyponatremiaacuteApril 2024 2:26pmNonischemic cardiomyopathyacuteApril 2024 2:26pmSarcoidosis of lungresolvedApril 2024 2:26pmAcute exacerbation of chronic obstructive pulmonary disease (COPD)acuteJun2024 3:15amAcute UTIacuteJune 2024 3:15amArrhythmiaacuteJun2024 3:15am Breath shortnessacuteJune 2024 3:15amBullous emphysemaacuteJune 2024 3:15amChronic respiratory failure with hypoxiaacuteJun2024 3:15am Corticosteroid dependenceacuteJun2024 3:15am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acuteJun2024 3:15amPulmonary sarcoidosisacuteJun2024 3:15am [facility] Work Phone: 1(384) 399-953404-21-2025 Evaluation note* Diagnosis Onset Date Resolution Status Admit Date Anemia acuteApr2024 2:26pmAtrial fibrillationacuteApr2024 2:26pm Chronic HFrEF (heart failure with reduced ejection fraction)acuteApr2024 2:26pmChronic respiratory failure with hypoxiaacuteApr2024 2:26pm HyponatremiaacuteApril 2024 2:26pmNonischemic cardiomyopathyacuteApril 2024 2:26pmSarcoidosis of lungresolvedApril 2024 2:26pmAcute exacerbation of chronic obstructive pulmonary disease (COPD)acuteJun2024 3:15amAcute UTIacuteJune 2024 3:15amBullous emphysemaacuteJun2024 3:15amChronic respiratory failure with hypoxiaacuteJune 2024 3:15am Corticosteroid dependenceacuteJune 2024 3:15amPulmonary sarcoidosisacute November 11, 2024 3:15amArrhythmiadeletedJune 2024 3:15amBreath shortness deletedJun2024 3:15am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deletedJun2024 3:15amAcute exacerbation of chronic obstructive pulmonary disease (COPD) acuteJuly 2024 11:39amAnemiaacuteJuly 2024 11:39amAtrial fibrillation acuteJuly 2024 11:39amChronic HFrEF (heart failure with reduced ejection fraction)acuteJuly 2024 11:39amChronic respiratory failure with hypoxia acuteJuly 2024 11:39amHyponatremiaacuteJuly 2024 11:39amNonischemic cardiomyopathyacuteJuly 2024 11:39amSarcoidosis of lungresolvedJuly 2024 11:39amAcute cystitisnoneactiveJuly 2024 11:39am [facility] Work Phone: 1([phone]) [phone] NotePatient Education Urology Benign Prostatic Hyperplasia Benign [...] Follow these instructions at home: ??? Take vskv-vhk-bhxcyii and prescription medicines only as told by [...] symptoms do not get (more content not included)...[facility]03-13-2025 History of Present illness Narrative* Harriet Gibson LPN - 07/25/2024 10:00 AM EDT Patient here for EKG visit ordered by Dr. Gonzalez due to a-fib and prolonged QT due to dofetilide. Dofetilide was decreased to 125mcg in hospital stay; discharged from [facility] 07.09.24. Dr. Rodriguez in suite to review [...] m (6' 1 ) documented in this [facility] Work Phone: 1(582) 741-950003-11-2025 History of Present illness Narrative* Edward Orr DO - 07/23/2024 11:59 PM EDT Patient Name: Mary Mcadams Date of : 1955 Date of Service: 07/23/2024 Facility: [facility] Type of Visit: Skilled Visit Subjective Mary Mcadams is a 68 y.o. male seen today at detention facility for skilled visit. Mary is feeling [...] Exam Vitals reviewed. Exam conducted with a manager revenue present (Flex Zhong MS3). Constitutional: General: He [...] BY: Edward Orr DO [facility] History of Present illness Narrative* Edward Orr DO - 07/16/2024 11:59 PM EST Patient Name: Mary Mcadams Date of : 1955 Date of Service: 07/16/2024 Facility: [facility] Type of Visit: Skilled Visit Subjective Mary Mcadams is a 68 y.o. male seen today at detention facility for therapy visit. Staff reports that [...] Exam Vitals reviewed. Exam conducted with a manager revenue present (Flex Zhong MS3). Constitutional: General: He [...] BY: Edward Orr DO documented in this encounterBar[facility]02-26-2025 History of Present illness Narrative* Edward Orr DO - 07/10/2024 11:59 PM EST Patient Name: Mary Mcadams Date of : 1955 Date of Service: 07/10/2024 Facility: [facility] Type of Visit: Admission H&P Subjective Mary Mcadams is a 68 y.o. male seen today at detention facility for No chief complaint on file. . Mary presents to [facility] where he was admitted for pain due [...] has a follow up appointment with his electrical engineer next month. No past medical history on [...] Plan 1. Chronic respiratory failure with hypoxia ([facility]) 2. Closed wedge compression fracture of T8 vertebra with routine healing, subsequent encounter 3. Closed wedge compression fracture of T7 vertebra with routine healing, subsequent encounter 4. Sarcoidosis of lung ([facility] 5. Chronic systolic congestive heart failure ([facility]) 6. Sarcoid myocarditis 7. Gross hematuria 8. Hypo-osmolality and hyponatremia 9. Hypokalemia 10. Alcohol dependence, 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[facility]) 11. Benign prostatic hyperplasia with lower urinary tract symptoms, symptom details unspecified 12. Other spondylosis, lumbar region 13. Muscle weakness (generalized) 14. Encephalopathy, unspecified type 15. Occlusion and stenosis of right carotid artery 16. Gastroesophageal reflux disease without esophagitis 17. Chronic atrial fibrillation ([facility]) Admit to [facility] for therapies. Continue medications as before Full code Continue salinas catheter Good rehab potentia ELECTRONICALLY SIGNED BY: Edward Orr DO documented in this encounterSt. [email or web address] [id number] Discharge summary Author Altaf Jones [facility] CenterNote Date/TimeFebruary 2024 1:09pm [place] [address] Discharge Summary Signed Patient: Mary Mcadams MR#: [id number] : 1955 Acct:[id number] Age/Sex: 68 / M Adm Date: 5 Loc: 3T Room: [address] [place] [address]: Altaf Jones MD Copies to: [...] 45 Discharge Plan Discharge Plan Patient Disposition: [facility] Activity: No Activity Restriction Diet: Regular [...] 2 liters at HS and napping DME [facility] Ellipta 200-62.5-25 mcg blister with [...] intranasal DAILY Follow Up: [facility] [Outside] - 08/05/24 1:15 pm (Previously scheduled appointment with Dr. Norman. ) Shannon Gonzalez MD [Active Staff] - 09/13/24 2:10 pm (Have an EKG done in my office on 07/18/24 at 2pm) Adam Del Valle DO [Primary Care Provider] - (Please arrange a follow-up appointment once dischargedfrom SNF. ) Continuity of Care Document Health Concerns: A [facility] screening has identified you as FRAIL or [...] Strong:Four Ways to Beat the Frailty Risk https://www.[facility].org/health/mfyqxclw-oix-hrnxlwgsak/st pv-yblhic-pknj- nkul-vc-qlss-fcy-dkbtfxd-onuo Exam Physical Exam Vital Signs: Temp Pulse [...] signed by Altaf Jones MD> 07/09/24 1309 [facility] Work Phone: 1(325) [phone] [place] [id number] Discharge Summary Signed Patient: Mary Mcadams MR#: [id number] : 1955 Acct:[id number] Age/Sex: 68 / M Adm Date: 5 Loc: 3T Room: [address] [place] [address]: Altaf Jones MD Copies to: MD Adam Carballo,~ Providers Date of Discharge: 07/09/24 Discharging Provider: [...] 45 Discharge Plan Discharge Plan Patient Disposition: [facility] Activity: No Activity Restriction Diet: Regular [...] -Weighted utensils -Care to be managed by [facility] providers. Prescriptions: New dofetilide 125 mcg Capsule [...] Instructions: 2 liters at HS and napping [facility] Ellipta 200-62.5-25 mcg blister with device 1 [...] Continuity of Care Document Health Concerns: A [facility] screening has identified you as FRAIL or [...] Strong:Four Ways to Beat the Frailty Risk https://www.[facility].org/health/yjennjpp-rsx-jnskdeaymz/st tj-zfqygz-obng- gzwy-ay-rcim-neh-hbngego-omfy Exam Physical Exam Vital Signs: Temp Pulse [...] 60.0, Glucose 86, Calcium 9.0 Documented By: Atlaf Jones MD 07/09/24 1301 Signed By: 07/09/24 1309 [facility]02-24-2025 Progress note Author Ambrose Hsieh [facility] CenterNote Date/TimeFebruary 2024 5:36pm [place] [address] Hospitalist Progress Note Signed Patient: Mary Mcadams MR#: [id number] : 1955 Acct:[id number] Age/Sex: 68 / M Adm Date: 5 Loc: Room: [address] [place] [address] Type: ADM IN Attending Dr: Ambrose Hsieh [...] spray 07/04/24 09:00 07/08/24 08:33 Fluticasone Propionate Davin 120 Davin/16 Gm Bottle INTRANASAL 07/04/25 08:59 1 spray [...] stable for discharge to SNF ([facility]) once pre-cert approved Hematoma/infectious process to left [...] <Electronically signed by Ambrose Hsieh MD> 07/08/24 7604 [facility] Work Phone: 1(181) [phone] [place] [address] Hospitalist Progress Note Signed Patient: Mary Mcadams MR#: [id number] : 1955 Acct:[id number] Age/Sex: 68 / M Adm Date: 5 Loc: 3T Room: [address] [place] [address] Type: ADM IN Attending Dr: Ambrose Hsieh [...] spray 07/04/24 09:00 07/08/24 08:33 Fluticasone Propionate Davin 120 Davin/16 Gm Bottle INTRANASAL 07/04/25 08:59 1 spray [...] stable for discharge to SNF ([facility]) once pre-cert approved Hematoma/infectious process to left [...] MD 07/08/24 1040 Signed By: 07/08/24 1736 [facility]02-24-2025 Progress note Author Shannon Gonzalez [facility] CenterNote Date/TimeFebruary 2024 12:45pm [place] [address] Cardiology Progress Note Signed with Addenda Patient: Mary Mcadams MR#: [id number] : 1955 Acct:[id number] Age/Sex: 68 / M Adm Date: 5 Loc: Room: [address] [place] [address] Type: ADM IN Attending Dr: Ambrose Hsieh [...] Cont Tikosyn 125 mcg BID. [facility] 2?continue other home medications 3-continuous telemetry. Documented By: Shannon Gonzalez MD, FACC 5 1230 Signed By: <Electronically signed by MD POOL Gonzalez> 07/08/24 1242 [facility] Work Phone: 1(476) 176-411002-24-2025 Progress noteJoseph [place] [id number] Cardiology Progress Note Signed with Addenda Patient: Mary Mcadams MR#: [id number] : 1955 Acct:[id number] Age/Sex: 68 / M Adm Date: 5 Loc: Room: [address] [place] [address] Type: ADM IN Attending Dr: Ambrose Hsieh [...] 3-continuous telemetry. Documented By: Shannon Gonzalez MD, [facility] 5 1230 Signed By: 07/08/24 1242 [facility]02-23-2025 Progress note Author Andres Herrera [facility] CenterNote Date/TimeFebruary 2024 4:21pm [place] [address] Cardiology Progress Note Signed Patient: Mary Mcadams MR#: [id number] : 1955 Acct:[id number] Age/Sex: 68 / M Adm Date: 5 Loc: Room: [address] [place] [address] Type: ADM IN Attending Dr: Ambrose Hsieh [...] <Electronically signed by Andres Herrera MD> 07/07/24 1621 [facility] Work Phone: 1(797) [phone] Progress note Author Ambrose Hsieh [facility] CenterNote Date/TimeFebruary 2024 2:56pm [place] [address] Hospitalist Progress Note Signed Patient: Mary Mcadams MR#: [id number] : 1955 Acct:[id number] Age/Sex: 68 / M Adm Date: 5 Loc: Room: [address] [place] [address] Type: ADM IN Attending Dr: Ambrose Hsieh [...] Capsule PO 07/06/25 10:59 125 mcg BID AELX Administration Finasteride 5 mg 07/04/24 09:00 07/07/24 08:57 Finasteride 5 Mg Tablet PO 07/04/25 08:59 5 mg DAILY ALEX Administration Fluticasone Propionate 1 spray 07/04/24 09:00 07/07/24 08:55 Fluticasone Propionate Davin 120 Davin/16 Gm Bottle INTRANASAL 07/04/25 08:59 1 spray [...] <Electronically signed by Ambrose Hsieh MD> 07/07/24 [facility] Work Phone: 1(542) 552-243002-23-2025 Progress noteJoseph [place] [phone] Cardiology Progress Note Signed Patient: Mary Mcadams MR#: [id number] : 1955 Acct:[id number] Age/Sex: 68 / M Adm Date: 5 Loc: 3T Room: [address] [place] [address] Type: ADM IN Attending Dr: Ambrose Hsieh [...] Herrera MD 06/16 Signed By: 07/07/24 1621 [facility]02-23-2025 [place] [address] Hospitalist Progress Note Signed Patient: Mary Mcadams MR#: [id number] : 1955 Acct:[id number] Age/Sex: 68 / M Adm Date: 5 Loc: Room: [address] [place] [address] Type: ADM IN Attending Dr: Ambrose Hsieh [...] spray 07/04/24 09:00 07/07/24 08:55 Fluticasone Propionate Davin 120 Davin/16 Gm Bottle INTRANASAL 07/04/25 08:59 1 spray [...] Hsieh MD 07/07/24 1016 Signed By: 07/07/24 2586 [facility]02-22-2025 Progress note Author Andres Herrera [facility] CenterNote Date/TimeFebruary 2024 4:37pm [place] [id number] Cardiology Progress Note Signed Patient: Mary Mcadams MR#: [id number] : 1955 Acct:[id number] Age/Sex: 68 / M Adm Date: 5 Loc: 3T Room: [address] [place] [address] Type: ADM IN Attending Dr: Ambrose Hsieh [...] <Electronically signed by Andres Herrera MD> 07/06/24 1636 [facility] Work Phone: 1(996) 334-598602-22-2025 Progress noteJoseph [place] [phone] Cardiology Progress Note Signed Patient: Mary Mcadams MR#: [id number] : 1955 Acct:[id number] Age/Sex: 68 / M Adm Date: 5 Loc: Room: [address] [place] [address] Type: ADM IN Attending Dr: Ambrose Hsieh [...] Herrera MD 06/16 Signed By: 07/06/24 1637 [facility]02-22-2025 Progress note Author Ambrose Hsieh [facility] CenterNote Date/TimeFebruary 2024 12:20pm [place] [address] Hospitalist Progress Note Signed with Addenda Patient: Mary Mcadams MR#: [id number] : 1955 Acct:[id number] Age/Sex: 68 / M Adm Date: 5 Loc: Room: [address] [place] [address] Type: ADM IN Attending Dr: Ambrose Hsieh [...] spray 07/04/24 09:00 07/06/24 09:33 Fluticasone Propionate Davin 120 Davin/16 Gm Bottle INTRANASAL 07/04/25 08:59 1 spray [...] signed by Ambrose Hsieh MD> 07/06/24 1217 [facility] Work Phone: 1(184) 660-942402-22-2025 [place] [address] Hospitalist Progress Note Signed with Addenda Patient: Mary Mcadams MR#: [id number] : 1955 Acct:[id number] Age/Sex: 68 / M Adm Date: 5 Loc: Room: [address] [place] [address] Type: ADM IN Attending Dr: Ambrose Hsieh [...] spray 07/04/24 09:00 07/06/24 09:33 Fluticasone Propionate Davin 120 Davin/16 Gm Bottle INTRANASAL 07/04/25 08:59 1 spray [...] MD 07/06/24 1208 Signed By: 07/06/24 1217 [facility]02-21-2025 Consult note Author Shannon Gonzalez [facility] CenterNote Date/TimeFebruary 2024 4:56pm [place] [address] Cardiology Consult Note Signed Patient: Mary Mcadams MR#: [id number] : 1955 Acct:[id number] Age/Sex: 68 / M Adm Date: 5 Loc: Room: [address] [place] [address] Type: ADM IN Attending Dr: Ambrose Hsieh MD Copies to: DO Shannon Waller MD, [facility] Ambrose Hsieh MD~ Cardiology HPI History of [...] 11 point review of system essentially unremarkable. [facility] Medical History Hypotension Hypokalemia Encephalopathy Carotid stenosis, [...] (eye) DAILY 10/12/23 [History Confirmed 07/03/24] Oxygen 06/10/24 [History Confirmed 07/03/24] albuterol sulfate 90 mcg/actuation [...] home medications Documented By: Shannon Gonzalez MD, [facility] 5 1647 Signed By: <Electronically signed by [facility] Shannon Gonzalez> 07/05/24 1651 [facility] Work Phone: 1(188) 620-767802-21-2025 Progress note Author Ambrose sHieh [facility] CenterNote Date/TimeFebruary 2024 3:42pm [place] [address] Hospitalist Progress Note Signed Patient: Mary Mcadams MR#: [id number] : 1955 Acct:[id number] Age/Sex: 68 / M Adm Date: 5 Loc: Room: [address] [place] [address] Type: ADM IN Attending Dr: Ambrose Hsieh [...] spray 07/04/24 09:00 07/05/24 09:20 Fluticasone Propionate Davin 120 Davin/16 Gm Bottle INTRANASAL 07/04/25 08:59 1 spray [...] 07/04/24 07:30 07/05/24 09:19 Pantoprazole 40 Mg Tablet. PO 07/04/25 07:29 [...] <Electronically signed by Ambrose Hsieh MD> 07/05/24 1542 [facility] Work Phone: 1(580) [phone] [place] [address] Cardiology Consult Note Signed Patient: Mary Mcadams MR#: [id number] : 1955 Acct:[id number] Age/Sex: 68 / M Adm Date: 5 Loc: Room: [address] [place] [address] Type: ADM IN Attending Dr: Ambrose Hsieh MD Copies to: DO Shannon Waller MD, [facility] Ambrose Hsieh MD~ Cardiology HPI History of [...] 11 point review of system essentially unremarkable. [facility] Medical History Hypotension Hypokalemia Encephalopathy Carotid stenosis, [...] home medications Documented By: Shannon Gonzalez MD, [facility] 5 1647 Signed By: 07/05/24 1656 [facility]02-21-2025 [place] [address] Hospitalist Progress Note Signed Patient: Mary Mcadams MR#: [id number] : 1955 Acct:[id number] Age/Sex: 68 / M Adm Date: 5 Loc: Room: [address] [place] [address] Type: ADM IN Attending Dr: Ambrose Hsieh [...] spray 07/04/24 09:00 07/05/24 09:20 Fluticasone Propionate Davin 120 Davin/16 Gm Bottle INTRANASAL 07/04/25 08:59 1 spray [...] MD 07/05/24 1043 Signed By: 07/05/24 1542 [facility]02-20-2025 Progress note Author Ambrose Hsieh [facility] CenterNote Date/TimeFebruary 2024 3:43pm [place] [address] Hospitalist Progress Note Signed Patient: Mary Mcadams MR#: [id number] : 1955 Acct:[id number] Age/Sex: 68 / M Adm Date: 5 Loc: 3T Room: [address] [place] [address] Type: ADM IN Attending Dr: Ambrose Hsieh [...] spray 07/04/24 09:00 07/04/24 09:28 Fluticasone Propionate Davin 120 Davin/16 Gm Bottle INTRANASAL 07/04/25 08:59 Not Given DAILY ALEX Lactated Ringer's 1,000 mls @ 75 mls/hr 07/03/24 23:15 07/03/24 23:54 Lactated Ringers IV 07/04/24 12:34 75 mls/hr .[id number] ALEX Administration Ceftriaxone Sodium 1 gm in [...] Tablet.Dr PO 07/04/25 07:29 40 mg DAILY.AC.BKFAST LAEX Administration Potassium Chloride 10 meq 07/04/24 09:00 [...] <Electronically signed by Ambrose Hsieh MD> 07/04/24 [facility] Work Phone: 1(149) 438-673802-20-2025 [place] [address] Hospitalist Progress Note Signed Patient: Mary Mcadams MR#: [id number] : 1955 Acct:[id number] Age/Sex: 68 / M Adm Date: 5 Loc: 3T Room: [address] [place] [address] Type: ADM IN Attending Dr: Ambrose Hsieh [...] spray 07/04/24 09:00 07/04/24 09:28 Fluticasone Propionate Davin 120 Davin/16 Gm Bottle INTRANASAL 07/04/25 08:59 Not Given DAILY ALEX Lactated Ringer's 1,000 mls @ 75 mls/hr 07/03/24 23:15 07/03/24 23:54 Lactated Ringers IV 07/04/24 12:34 75 mls/hr .[id number] ALEX Administration Ceftriaxone Sodium 1 gm in [...] MD 07/04/24 1015 Signed By: 07/04/24 1543 [facility]02-20-2025 History and physical note Author Maricruz Godoy [facility] CenterNote Date/TimeFebruary 2024 6:43am [place] [address] Hospitalist H&P Signed Patient: Mary Mcadams MR#: [id number] : 1955 Acct:[id number] Age/Sex: 68 / M Adm Date: 5 Loc: Room: [address] [place] [address] Type: ADM IN Attending Dr: Altaf Jones MD Copies to: MD Adam Carballo DO Paula G Smith, DATA CENTER ARCHITECT~ HPI DATE OF EXAMINATION: 07/03/24 CHIEF COMPLAINT: [...] with his medications, he ran out of [place] meds and his son usually fills his [...] He will be admitted as inpatient to [facility] daily for pain Review of Systems Review of Systems Review of systems: A 10 point review of systems was obtained, negative unless noted in the HPI or below. [facility] Medical History Hypotension Hypokalemia Encephalopathy Carotid stenosis, [...] % (Auto) 12.4 % (.) 07/03/24 19:45 [place] % (Auto) 9.9 % (.) 07/03/24 19:45 Eos % (Auto) 2.7 % (.) 07/03/24 19:45 Baso % (Auto) 0.7 % (.) 07/03/24 19:45 Nucleat RBC Rel Count 0.0 /100 WBC (0-0.5) 07/03/24 19:45 Neut # (Auto) 4.3 x10E3/uL (1.8-7.7) 07/03/24 19:45 Lymph # (Auto) 0.7 x10E3/uL (1.00-4.8) L 07/03/24 19:45 [place] # (Auto) 0.6 x10E3/uL (0.0-0.8) 07/03/24 19:45 [...] 3 Documented By: Maricruz Godoy APRN 07/03/24 0903 Signed By: <Electronically signed by CHARLEY Godoy> 07/04/24 9087 <Electronically signed by Altaf Jones MD> 07/04/24 0643 [facility] Work Phone: 1(632) 924-240302-20-2025 Radiology Diagnostic [place] [address] Ultrasound Report Signed Patient: Mary Mcadams MR#: [id number] : 1955 Acct:[id number] Age/Sex: 68 / M ADM Date: 5 Loc: 3T Room: [address] [place] [address] Type: ADM IN Attending Dr: Ambrose Hsieh [...] Baudilio Moura MD07/04/2024 8:38 AM Dictation Location: [place] [address] Tech: Melanie Lawtoncelestino Transcribed By: JEANIE 07/04/24837 Dictated By: Baudilio Moura MD 07/04/24837 Signed By: 07/04/24837 [facility] Work Phone: 1(269) 825-777902-20-2025 [place] [address] Hospitalist Procedure Note Signed Patient: Mary Mcadams MR#: [id number] : 1955 Acct:[id number] Age/Sex: 68 / M Adm Date: 5 Loc: 3T Room: 3U3463-7 Type: ADM IN Attending Dr: Altaf Jones MD Copies to: MD Adam Carballo DO~ Hospitalist Procedures Date/Provider PROCEDURE DATE: 07/04/24 PROCEDURE PERFORMED BY: Altaf Jones [facility] Procedure Indication: Urinary retention Procedure performed: [place] [...] MD 07/04/24 0652 Signed By: 07/04/24 0655 [facility]02-20-2025 [place] [address] Hospitalist H&P Signed Patient: Mary Mcadams MR#: [id number] : 1955 Acct:[id number] Age/Sex: 68 / M Adm Date: 5 Loc: Room: [address] [place] [address] Type: ADM IN Attending Dr: Altaf Jones MD Copies to: MD Adam Carballo DO Paula G Smith, DATA CENTER ARCHITECT~ HPI DATE OF EXAMINATION: 07/03/24 CHIEF COMPLAINT: [...] with his medications, he ran out of [place] and his son usually fills his pillbox [...] He will be admitted as inpatient to [facility] daily for pain Review of Systems Review of Systems Review of systems: A 10 point review of systems was obtained, negative unless noted in the HPI or below. [facility] Medical History Hypotension Hypokalemia Encephalopathy Carotid stenosis, [...] % (Auto) 12.4 % (.) 07/03/24 19:45 [place] % (Auto) 9.9 % (.) 07/03/24 19:45 Eos % (Auto) 2.7 % (.) 07/03/24 19:45 Baso % (Auto) 0.7 % (.) 07/03/24 19:45 Nucleat RBC Rel Count 0.0 /100 WBC (0-0.5) 07/03/24 19:45 Neut # (Auto) 4.3 x10E3/uL (1.8-7.7) 07/03/24 19:45 Lymph # (Auto) 0.7 x10E3/uL (1.00-4.8) L 07/03/24 19:45 [place] # (Auto) 0.6 x10E3/uL (0.0-0.8) 07/03/24 19:45 [...] 3 Documented By: Maricruz Godoy APRN 07/03/24 0768 Signed By: 07/04/24 7167 07/04/24 0643 [facility]02-20-2025 Evaluation note* Diagnosis Onset Date Resolution Status Admit Date Abnormal QT interval present on electroc ardiogram resolvedFebruary 2024 10:39pmAcute UTIresolvedFebruary 2024 10:39pm Altered [facility]resolved[facility] 20[facility] 10:39pmCompression fracture of body of thoracic vertebraresolvedFebruary 2024 10:39pmFallresolvedFebruary 2024 10:39pmPulmonary sarcoidosisresolvedFebruary 2024 10:39pmUTI (urinary tract infection)resolvedFebruary 2024 10:39pmWeaknessresolved July 03, 2024 10:39pmBronchiectasis, uncomplicatedacuteMarch 2024 2:55pmCardiac sarcoidosisacuteMarch 2024 2:55pmHistory of aspergillomaacute July 15, 2024 2:55pmBullous emphysemaresolved[facility] 2024 2:55pmChronic respiratory failure with hypoxiaresolved[facility] 2024 2:55pmPulmonary sarcoidosisresolved[facility] 2024 2:55pmAtrial fibrillationresolvedApril 2024 2:26pmChronic HFrEF (heart failure with reduced ejection fraction)resolved September 02, 2024 2:26pmNonischemic cardiomyopathyresolvedApril 2024 2:26pm Sarcoidosis of lungresolvedApril 2024 2:26pm [facility] Work Phone: 1(886) 224-384602-19-2025 [facility]iology [facility] Main [place] [address] [place] [address] CT Scan Report Signed Patient: Mary Mcadams MR#: [id number] : 1955 Acct:[id number] Age/Sex: 68 / M ADM Date: 5 Loc: Room: [address] [place] [address] Type: ADM IN Attending Dr: Altaf Jones [...] Juliocesar Varela M.D.07/03/2024 10:59 PM Dictation Location: RADIO--17 Transcribed By: JEANIE 07/03/242258 Dictated By: Juliocesar Varela II, MD 07/03/242252 Signed By: 07/03/242258 [facility] Work Phone: 1(464) 154-854402-19-2025 Radiology Diagnostic study [facility] Main [place] [address] [place] [address] CT Scan Report Signed Patient: Mary Mcadams MR#: [id number] : 1955 Acct:[id number] Age/Sex: 68 / M ADM Date: 5 [...] Juliocesar Varela M.D.07/03/2024 9:23 PM Dictation Location: [place] [address] Transcribed By: [facility] 07/03/242122 Dictated By: Juliocesar Varela II, MD 07/03/242108 Signed By: 07/03/242122 [facility] Work Phone: 1(711) 492-484302-19-2025 Radiology Diagnostic study [facility] Main [place] [address] [place] [address] CT Scan Report Signed Patient: Mary Mcadams MR#: [id number] : 1955 Acct:[id number] Age/Sex: 68 / M ADM Date: 5 [...] Juliocesar Varela M.D.07/03/2024 9:09 PM Dictation Location: [place] [address] Transcribed By: [facility] 07/03/242108 Dictated By: Juliocesar Varela II, MD 07/03/242103 Signed By: 07/03/242108 [facility] Work Phone: 1(876) 797-541201-10-2025 History of Present illness Narrative* Shannon Gonzalez [...] inhaler, Inhale 1 puff., Disp: , Rfl: stetaezccoj-ctwshrbcd-hzgcnesv (TRELEGY-ELLIPTA) 200-62.5-25 mcg blister with device, Serwhgrxizp-Unobncpnp-Edgeiljp (Trelegy Ellipta) 200-62.5-25 mcg blister with device [...] and plan. [facility] Work Phone: 1([phone]) 683-669401-10-2025 Instructions* Patient Instructions* Harriet Gibson LPN - [...] your visit. documented in this encounterC[facility] Work Phone: 1(402) 158-169912-18-2024 Evaluation note* Diagnosis Onset Date Resolution Status Admit Date Altered mental status acuteDecember 2023 10:49amHypotensionacuteJanuary 2024 2:25pmRectal bleedingacuteJanuary 2024 2:25pmAtrial fibrillationresolvedJanuary 2024 2:25pmChronic HFrEF (heart failure with reduced ejection fraction)resolved June 03, 2024 2:25pmNonischemic cardiomyopathyresolvedMayuary 2024 2:25pmSarcoidosis of lungresolvedMayuary 2024 2:25pmAltered mental status acuteFebruary 2024 10:39pmCompression fracture of body of thoracic vertebraacuteFebruary 2024 10:39pmFallacuteFebruary 2024 10:39pm WeaknessacuteFebruary 2024 10:39pm [facility] Work Phone: 1(265) 466-837812-18-2024 Evaluation note* Diagnosis Onset Date Resolution Status Admit Date Altered mental status acuteDecember 2023 10:49amHypotensionacuteJanuary 2024 2:25pmRectal bleedingacuteJanuary 2024 2:25pmAtrial fibrillationresolvedJanuary 2024 2:25pmChronic HFrEF (heart failure with reduced ejection fraction)resolved June 03, 2024 2:25pmNonischemic cardiomyopathyresolvedJanuary 2024 2:25pmSarcoidosis of lungresolvedJanuary 2024 2:25pmAbnormal QT interval present on electrocardiogramacuteFebruary 2024 10:39pmAcute UTIacute July 03, 2024 10:39pmAltered mental statusacuteFebruary 2024 10:39pm Compression fracture of body of thoracic vertebraacuteFebruary 2024 10:39pmFallacuteFebruary 2024 10:39pmPulmonary sarcoidosisacuteFebruary 2024 10:39pmUTI (urinary tract infection)acuteFebruary 2024 10:39pm WeaknessacuteFebruary 2024 10:39pm [facility] Work Phone: 1(707) 538-101812-18-2024 Evaluation note* Diagnosis Onset Date Resolution Status Admit Date Altered mental [facility] 20[facility] 10:49amHypotensionacuteJanuary 2024 2:25pmRectal bleedingacuteJanuary 2024 2:25pmAtrial fibrillationresolvedJanuary 2024 2:25pmChronic HFrEF (heart failure with reduced ejection fraction)resolved June 03, 2024 2:25pmNonischemic cardiomyopathyresolvedJanuary 2024 2:25pmSarcoidosis of lungresolvedJanuary 2024 2:25pmAbnormal QT interval present on electrocardiogramacuteFebruary 2024 10:39pmAcute UTIacute July 03, 2024 10:39pmAltered mental statusacuteFebruary 2024 10:39pm Compression fracture of body of thoracic vertebraacuteFebruary 2024 10:39pmFallacuteFebruary 2024 10:39pmPulmonary sarcoidosisacuteFebruary 2024 10:39pmUTI (urinary tract infection)acuteFebruary 2024 10:39pm WeaknessacuteFebruary 2024 10:39pmCardiac sarcoidosisacuteMarch 2024 2:55pmHistory of aspergillomaacuteJulch 2024 2:55pmBullous emphysema resolvedMarch 2024 2:55pmChronic respiratory failure with hypoxiaresolved July 15, 2024 2:55pmPulmonary sarcoidosisresolved[facility]20[facility] 2:55pm [facility] Work Phone: 1(380) 361-595311-13-2024 History of Present illness Narrative* Shannon Gonzalez [...] to be placed on dofetilide with successful scientology of sinus rhythm during his last admission [...] inhaler, Inhale 1 puff., Disp: , Rfl: mcmgqzqkolf-ddyoxegwn-tyvoaeno (TRELEGY-ELLIPTA) 200-62.5-25 mcg blister with device, Izwbbzzitbp-Hgaoaegnz-Tldyxkxk (Trelegy Ellipta) 200-62.5-25 mcg blister with device [...] Scribe Attestation By signing my name below, IKassidy RN , Scribe attest that this documentation [...] and plan. documented in [facility] encounterC[facility] Work Phone: 1(645) 298-161911-13-2024 Instructions* Patient Instructions* Kassidy Waggoner RN - [...] in 4 months Labs documented in this encounterC[facility] Work Phone: 1(374) 707-991511-06-2024 Progress note Author Altaf Jones [facility] March 20, 2024 1:34pmNote Date/TimeNov2023 1:34[place] [address] Hospitalist Progress Note Signed Patient: Mary Mcadams MR#: [id number] : 1955 Acct:[id number] Age/Sex: 68 / M Adm Date: 4 Loc: 4 Room: [address] [place] [address] Type: ADM IN Attending Dr: Altaf Jones [...] spray 03/14/24 09:00 03/20/24 08:58 Fluticasone Propionate Davin 120 Davin/16 Gm Bottle INTRANASAL 03/14/25 08:59 1 spray [...] <Electronically signed by Altaf Jones MD> 03/20/241333 [facility] Work Phone: 1([phone]) 205-101511-05-2024 Progress note Author [facility] March 19, 2024 4:51pmNote Date/TimeNov2023 4:51pm[place] [address] Cardiology Progress Note Signed Patient: Mary Mcadams MR#: [id number] : 1955 Acct:[id number] Age/Sex: 68 / M Adm Date: 4 Loc: Room: [address] [place] [address] Type: ADM IN Attending Dr: Altaf Jones MD Copies to: ~ Date of Service: 03/19/2024 Subjective Principal diagnosis: Persistent atrial fibrillation Interval history: Patient converted to normal sinus rhythm yesterday afternoon and presently maintains normal sinus rhythm with normal QTc interval. He has no dyspnea and his vital signs are stable. He will need to bemonitored overnight with repeat EKG in the morning, [...] for ischemic heart disease at a later stagenoninvasively Code(s): I51.89 - Other ill-defined heart diseases Documented By: Shannon Gonzalez MD, [facility] 4 1649 Signed By: <Electronically signed by MD POOL Gonzalez> 03/19/24 1651 [facility] Work Phone: 1(548) 111-542611-04-2024 Progress note Author Altaf Jones [facility] March 18, 2024 5:47pmNote Date/TimeMarch 18, 2024 5:47pm[place] [address] Hospitalist Progress Note Signed Patient: Mary Mcadams MR#: [id number] : 1955 Acct:[id number] Age/Sex: 68 / M Adm Date: 4 Loc: Room: 5Q7057-5 Type: ADM IN Attending Dr: Altaf Jones [...] of care and confirmed it with the re sident/student/[employer]DER [employer]ER. Patient is feeling well. No complaints with [...] initiated. Remains anticoagulated with Xarelto. Cardiology plans forcardioversion Monday. Other chronic problems Pulmonary and cardiac [...] spray 03/14/24 09:00 03/18/24 08:48 Fluticasone Propionate Davin 120 Davin/16 Gm Bottle INTRANASAL 03/14/25 08:59 1 spray [...] . Documented By: Altaf Jones MD 03/18/24 0711 Signed By: <Electronically signed by Altaf Jones MD> 03/18/24 7688 [facility] Work Phone: 1(266) 942-549311-04-2024 Progress note Author Shannon Gonzalez [facility] March 18, 2024 11:06amNote Date/TimeNov2023 11:[address] [address] Cardiology Progress Note Signed Patient: Mary Mcadams MR#: [id number] : 1955 Acct:[id number] Age/Sex: 68 / M Adm Date: 4 Loc: Room: [address] [place] [address] Type: ADM IN Attending Dr: Altaf Jones [...] for ischemic heart disease at a later stagenoninvasively Code(s): I51.89 - Other ill-defined heart diseases Documented By: Shannon Gonzalez MD, FACC 4 1104 Signed By: <Electronically signed by MD POOL Gonzalez> 03/18/24 7813 [facility] Work Phone: 1(460) 764-223111-04-2024 Progress note Author Lula Muniz [facility] March 18, 2024 7:24amNote Date/TimeNov2023 12:[address]pm[address] [address] Vascular Surgery Progress Note Signed Patient: Mary Mcadams MR#: [id number] : 1955 Acct:[id number] Age/Sex: 68 / M Adm Date: 4 Loc: Room: [address] [place] [address] Type: ADM IN Attending Dr: Altaf Jones MD Copies to: ~ Date of Service: 03/15/2024 Subjective Subjective Interval history: Patient seen on morning rounds. He is much more alert and oriented today than when I saw him yesterday morning. He has been started on aspirin and statin medications. He does not have any hemisphericsymptoms of his carotid disease. He has no [...] health issues and comorbidities. In the absence ofany symptoms toinclude hemispheric weakness, aphasia, or amaurosis fugax we should continue maximummedical management for now and follow him along [...] signed by Baudilio Moura MD> 03/15/24 1403 [facility] Work Phone: 1(224) 228-291411-03-2024 Progress note Author Andres Herrera [facility] March 17, 2024 1:58pmNote Date/TimeNov2023 1:59pm[place] [id number] Cardiology Progress Note Signed Patient: Mary Mcadams MR#: [id number] : 1955 Acct:[id number] Age/Sex: 68 / M Adm Date: 4 Loc: Room: [address] [place] [address] Type: ADM IN Attending Dr: Altaf Jones [...] diseases Documented By: Andres Herrera MD 08/05 1358 Signed By: <Electronically signed by Andres Herrera MD> 03/17/24 1358 [facility] Work Phone: 1(826) 821-920711-03-2024 Progress note Author Altaf Jones [facility] March 17, 2024 10:48amNote Date/TimeMarch 17, 2024 10:48am[place] [address] Hospitalist Progress Note Signed Patient: Mary Mcadams MR#: [id number] : 1955 Acct:[id number] Age/Sex: 68 / M Adm Date: 4 Loc: Room: [address] [place] [address] Type: ADM IN Attending Dr: Altaf Jones [...] 03/14/24 09:00 03/17/24 08:49 Aspirin 81 Mg Tablet.Dr PO 03/14/25 08:59 [...] spray 03/14/24 09:00 03/17/24 08:53 Fluticasone Propionate Davin 120 Davin/16 Gm Bottle INTRANASAL 03/14/25 08:59 1 spray [...] <Electronically signed by Altaf Jones MD> 03/17/241047 [facility] Work Phone: 1(192) 874-394211-02-2024 Progress note Author Andres Herrera [facility] March 16, 2024 4:19pmNote Date/TimeNov2023 4:19pmAma[place] [address] Cardiology Progress Note Signed Patient: Mary Mcadams MR#: [id number] : 1955 Acct:[id number] Age/Sex: 68 / M Adm Date: 4 Loc: Room: [address] [place] [address] Type: ADM IN Attending Dr: Altaf Jones [...] <Electronically signed by Andres Herrera MD> 03/16/24 1619 [facility] Work Phone: 1(172) 158-871711-02-2024 Progress note Author Altaf Jones [facility] March 16, 2024 12:43pmNote Date/TimeMarch 16, 2024 12:42pm[place] [address] Hospitalist Progress Note Signed Patient: Mary Mcadams MR#: [id number] : 1955 Acct:[id number] Age/Sex: 68 / M Adm Date: 4 Loc: Room: [address] [place] [address] Type: ADM IN Attending Dr: Altaf Jones [...] spray 03/14/24 09:00 03/16/24 08:59 Fluticasone Propionate Davin 120 Davin/16 Gm Bottle INTRANASAL 03/14/25 08:59 1 spray [...] <Electronically signed by Altaf Jones MD> 03/16/24 6562 [facility] Work Phone: 1(313) 503-736811-01-2024 Consult note Author Shannon Gonzalez [facility] March 15, 2024 4:27pmNote Date/TimeMarch 15, 2024 4:26pm[place] [address] Cardiology Consult Note Signed Patient: Mary Mcadams MR#: [id number] : 1955 Acct:[id number] Age/Sex: 68 / M Adm Date: 4 Loc: Room: [address] [place] [address] Type: ADM IN Attending Dr: Altaf Jones [...] amiodarone loading dose and has been on Xareltofor 2 months. The patient presented to [facility] emergency department yesterday with altered mental status and generalized aches. He was found to be in atrial fibrillation and was therefore transferred back care. The patient hashistory of left ventricular systolic dysfunction ejection fraction 45%based on the last echocardiogram February 2024. He [...] and he has followed with Dr. Muniz. Wh ether the patient has cardiac involvement with sarcoidosis [...] front back and sideways. This is not effortrelated and the cause is undetermined. My course [...] have 90% stenosis of the right internalcarotid art sarah when he had his imaging studies in the ER at [facility]. He was seen by vascular surgeryand they recommended medical therapy since the patient is asymptomatic. Antiplatelet therapy and statin therapy have been initiated. Neurology had seen the patient and they simply concurred with medical therapy. Review of Systems Review of Systems Review of systems: All other review of system essentially unremarkable or covered in HPI [facility] Medical History Carotid stenosis, right CTA: 90% [...] mcg/dose blistr powdr for inhalation inhalation 02/02/24 [HistoryConfirmed 03/08/24] rivaroxaban 20 mg tablet (Xarelto) 20 mg PO DAILY.WITH.BKFAST 30 days #30 tabs 02/04/24 [Rx Confirmed 03/08/24] carvedilol 12.5 mg tablet 12.5 mg PO BID 30 days #60 tabs 02/14/24 [Rx Confirmed 03/08/24] pantoprazole 40 mg tablet,delayed release See Rx Instructions .Route .COMPLEX #90 tabs 02/18/24 [RxConfirmed 03/08/24] amiodarone 200 mg tablet 200 mg [...] and interpreted as documented below: (Atrial fibrillation withcontrolled ventricular rate) A&P - Cardiology (1) Persistent [...] heart diseases Documented By: Shannon Gonzalez MD, [facility] 4 1617 Signed By: <Electronically signed by [facility] Shannon Gonzalez> 03/15/24 1622 [facility] Work Phone: 1(812) 801-217511-01-2024 Consult note Author Gutierrez Jo [facility] March 15, 2024 2:56pmNote Date/TimeMarch 15, 2024 2:10pm[place] [address] Physiatry (Rehab) Consult Note Signed Patient: Mary Mcadams MR#: [id number] : 1955 Acct:[id number] Age/Sex: 68 / M Adm Date: 4 Loc: Room: [address] [place] [address] Type: ADM IN Attending Dr: Altaf Jones [...] cardiomyopathy, and daily alcohol use presented to [facility] emergency room for altered mental status and chest pain due to acute encephalopathyon 03/13/2024 and was then transferred here to [facility]. Patient reported that he had not felt well since his cardioversion was performed2 weeks ago. Currently being treated for his acute encephalopathy with baclofen and alcohol abstinence since last Monday. Patient continues to receive IV hydration and MRI of the brain plus neurology consult will be performed soon. Patient also has right carotid stenosis found on CTA head and neck and vascular surgerywill be consulted. Alcohol dependence treated with CIWA protocol, IV Ativan, MVI, folic acid, thiamine. Patient no longer showing signs of being in altered mental state from acute encephalopathy. Patienthas LE weakness and tremor in UE. Patient has unsteady gait and impaired mobility but was able to walk 25 feet with assistance and walker. Physical, occupational and speech therapy evaluated the patient. Recommendations are for a detention facility at this time. Patient stated that his baseline was notably better when compared to how he is currently. Patient stated that he was independent before his hospitalization and is interested in therapy whether it is inpatient or outpatient. Review of Systems Review of Systems All other systems reviewed & are negative unless noted below or in HPI [facility] Medical History Carotid stenosis, right CTA: 90% [...] mcg/dose blistr powdr for inhalation inhalation 02/02/24 [HistoryConfirmed 03/08/24] rivaroxaban 20 mg tablet (Xarelto) 20 mg PO DAILY.WITH.BKFAST 30 days #30 tabs 02/04/24 [Rx Confirmed 03/08/24] carvedilol 12.5 mg tablet 12.5 mg PO BID 30 days #60 tabs 02/14/24 [Rx Confirmed 03/08/24] pantoprazole 40 mg tablet,delayed release See Rx Instructions .Route .COMPLEX #90 tabs 02/18/24 [RxConfirmed 03/08/24] amiodarone 200 mg tablet 200 mg [...] cardiomyopathy, and daily alcohol use presented to [facility] emergency room for altered mental status and chest pain due to acute encephalopathyon 03/13/2024 and was then transferred here to [facility]. -A detention facility would be the most appropriate option for patient; patient is agreeable to this. -Patient currently below his normal baseline and has comorbidities that further accentuate problemswith mobility and performing ADLs. Patient was personally seen by me, Dr. Jo, on the day of encounter, reviewed the history and the relevant portions of the chart, including current orders, allied health and building energy consultant notes, labs/imaging and performed gracia elements of exam and I formulated the plan of care and facilitated the medical decision making. I completed a substantive portion of this encounter, the medical decision makingportion of this note in its entirety, including Allied health note review, nursing note review, building energy consultant note review,discussion with nursing and case management, and more than 50% of my time was spent on counseling and coordination of care, time spent 60 minutes Documented By: Gutierrez Jo MD 1341 Signed By: <Electronically signed by Gutierrez Jo MD> 03/15/24 1456 [facility] Work Phone: 1(373) 826-314711-01-2024 Progress note Author Eriberto Stover [facility] March 15, 2024 2:40pmNote Date/TimeNov2023 2:40pmAma[place] [address] Neurology Progress Note Signed Patient: Mary Mcadams MR#: [id number] : 1955 Acct:[id number] Age/Sex: 68 / M Adm Date: 4 Loc: Room: [address] [place] [address] Type: ADM IN Attending Dr: Altaf Jones [...] Therapy Recommendations: OT Recommendations OT Recommended Discharge Correction Facility,Inpatient Rehab Unit Location OT Recommended Services at Physical Therapy,Occupational Therapy Discharge PT Recommendations PT Recommended Discharge Correction Facility,Inpatient Rehab Unit Location PT Recommended Services at Physical Therapy,Occupational Therapy Discharge Assessment/Plan (1) Encephalopathy acute: Plan CONSULT REASON: Encephalopathy INTERIM: He says he feels overall better. He denies having any more hallucinations. Nothing to add to reviewof systems. EXAMINATION: In no distress. No deformities or trauma. Limbs seem well-perfused. No significant edema. Normal work of breathing. Nasal cannula in place. Visualized skin is generally intact and without lesions aside from age-related findings. Affect normal. Patient is alert. Oriented to [facility] and March and 2023. Attention seems normal [...] This was most likely a mild case ofdelirium related to alcohol withdrawal. I suspect he [...] time Documented By: Eriberto Stover DO 03/15/24 1435 Signed By: <Electronically signed by Eriberto Stover DO> 03/15/24 1440 [facility] Work Phone: 1(620) 212-696811-01-2024 Consult note Author Baudilio Moura [facility] March 15, 2024 2:05pmNote Date/TimeOct2023 8:44[place] [id number] Vascular Surgery Consult Note Signed Patient: Mary Mcadams MR#: [id number] : 1955 Acct:[id number] Age/Sex: 68 / M Adm Date: 4 Loc: Room: [address] [place] [address] Type: ADM IN Attending Dr: Altaf Jones MD Copies to: MD Adam Carballo DO Jackie R Ruttino, APRN Matthew T Langenberg, MD~ HPI Consult HPI Reason for consult: ICA stenosis History of present illness: Mr. Mcadams is a 68-year-old male with medical history to include A- fib, sarcoidosis, hypertension, systolic heart failure, cardiomyopathy, and alcohol abuse transferred here from the [facility] for altered mental status. Reportedly the [...] earlier in the day. During workup through [facility] a CTA of the head and neck [...] unless noted below or in HPI PMFSH Medical History Carotid stenosis, right CTA: 90% [...] 2 mg of Ativan p.o. this morning ataround 6:00. Results - Vascular Surgery Labs 03/14/24 04:52 03/15/24 05:10 Labs: Laboratory Results - last 24 hr 03/14/24 03/14/24 02:45 04:52 Corrected WBC 7.8 Uncorrected WBC Count 7.8 RBC 3.79 L Hgb 11.3 L Hct 33.9 L MCV 89.3 MCH 29.7 MCHC 33.3 RDW 13.5 Plt Count 290 MPV 8.0 Neut % (Auto) 76.4 Lymph % (Auto) 8.5 [place] % (Auto) 11.6 Eos % (Auto) 2.3 Baso % (Auto) 1.2 Nucleat RBC Rel Count 0.1 Neut # (Auto) 6.0 Lymph # (Auto) 0.7 L [place] # (Auto) 0.9 H Eos # (Auto) 0.2 Baso # (Auto) 0.1 PHA Creatinine Clear 88.87 Sodium 134 L Potassium 4.0 Chloride 101 Carbon Dioxide 26.0 Anion Gap 11.0 BUN 12 Creatinine 0.71 Est GFR (CKD-EPI) > 60.0 Glucose 96 Calcium 8.4 L Magnesium 1.8 L Urine Color Yellow Urine Appearance Clear Urine pH 5.5 Ur Specific [place] 1.046 H Urine Protein 70 H Urine [...] of the head and neck obtained in [place]. I did order ultrasound for additional modality of evaluation of his carotid stenosis. The patient is quite sleepy and hard to arouse this morning, 2 mg of Ativan was given around 6 AM, patient appears overmedicated. Nursingwas notified and brought to bedside. We will see the patient again after the ultrasound is obtainedto discuss further treatment needs based on all studies. Hopefully there will be some family aroundat that time. Patient would benefit from antiplatelet [...] <Electronically signed by Baudilio Moura MD> 03/15/24 1406 [facility] Work Phone: 1(414) 577-706311-01-2024 Progress note Author lAtaf Jones [facility] March 15, 2024 12:33pmNote Date/TimeMarch 15, 2024 12:32[place] [address] Hospitalist Progress Note Signed Patient: Mary Mcadams MR#: [id number] : 1955 Acct:[id number] Age/Sex: 68 / M Adm Date: 4 Loc: Room: [address] [place] [address] Type: ADM IN Attending Dr: Altaf Jones MD Copies to: ~ Date of Service: 03/15/2024 Subjective Subjective Narrative: Patient is awake alert oriented x 3. Respiratory distress today. Lungs are clear today. Heart is regular, no gallop or JVD Abdomen soft benign Neurological as noted. No evidence of focal neurological deficit Assessment and plan 1. Acute decompensated CHF. Responded well to diuretic therapy. Clanf-bd-rcfm ultrasound shows improvement in LVEF. Canceled limited [...] at this time. Probably some delirium due tomultiple coexistent issues including mild alcohol withdrawal. Resolved. [...] spray 03/14/24 09:00 03/15/24 09:41 Fluticasone Propionate Davin 120 Davin/16 Gm Bottle INTRANASAL 03/14/25 08:59 Not Given DAILY ALEX Folic Acid 1 mg 03/14/24 09:00 03/15/24 09:33 Folic Acid 1 Mg Tablet PO 03/14/25 08:59 1 mg DAILY ALEX Administration Furosemide 40 mg 03/15/24 16:00 Furosemide 40 Mg/4 Ml Vial IV-PUSH 03/15/25 15:59 BID@0800,1600 [facility] Hydromorphone HCl 0.5 mg 03/14/24 02:27 Hydromorphone [...] signed by Altaf Jones MD> 03/15/24 1233 [facility] Work Phone: 1([phone]) 450-565610-31-2024 Consult note Author Eriberto Stover [facility] March 14, 2024 2:34pmNote Date/TimeOct2023 1:09pmJoseph [place] [id number] Neurology Consult Note Signed Patient: Mary Mcadams MR#: [id number] : 1955 Acct:[id number] Age/Sex: 68 / M Adm Date: 4 Loc: Room: [address] [place] [address] Type: ADM IN Attending Dr: Altaf Jones MD Copies to: DO Altaf Morton MD Benjamin Ball, DO~ HPI Consult Date: 03/14/24 Bleach Mixer: Eriberto Stover DO [facility] Medical History Carotid stenosis, right CTA: 90% [...] mcg/dose blistr powdr for inhalation inhalation 02/02/24 [HistoryConfirmed 03/08/24] rivaroxaban 20 mg tablet (Xarelto) 20 mg PO DAILY.WITH.BKFAST 30 days #30 tabs 02/04/24 [Rx Confirmed 03/08/24] carvedilol 12.5 mg tablet 12.5 mg PO BID 30 days #60 tabs 02/14/24 [Rx Confirmed 03/08/24] pantoprazole 40 mg tablet,delayed release See Rx Instructions .Route .COMPLEX #90 tabs 02/18/24 [RxConfirmed 03/08/24] amiodarone 200 mg tablet 200 mg [...] Grupo Chen M.D.03/13/2024 11:57 PM Dictation Location: [place] [address] Therapy Recommendations Therapy Recommendations: OT Recommendations OT Recommended Discharge Correction Facility,Inpatient Rehab Unit Location OT Recommended Services at Physical Therapy,Occupational Therapy Discharge PT Recommendations PT Recommended Discharge Correction Facility,Inpatient Rehab Unit Location PT Recommended Services at Physical Therapy,Occupational Therapy Discharge Assessment/Plan (1) Encephalopathy acute: Plan CONSULT REASON: Encephalopathy HPI: 68-year-old man with history of atrial fibrillation, pulmonary sarcoidosis, hypertension, nonischemic cardiomyopathy, heart failure, daily alcohol use. Last alcoholic drink suspected to be Monday? Hesays he had cut down gradually on how [...] him in the morning. Not acting his normalself. Said to stop drinking alcohol within the last 3 to 5 days. Medical history said to include acoustic neuroma. Home medications include Entresto, finasteride, tamsulosin, rivaroxaban, carvedilol,pantoprazole, amiodarone, baclofen. Baclofen was reportedly a new medication started last Monday. It has been held here. At the time of my encounter, he is wide-awake and easily holds a conversation. He says his chest isstill his biggest concern, as he seems to [...] Affect normal. Patient is alert. Oriented to [facility] and February. Attention seems only minimally impaired. Speech is fluent and nondysarthric. Pupils are equal. Gaze is disconjugate, right eye mild exotropia. But ocular motility is full. No nystagmus. Facial sensation is normal. Hearing is normal. Facial strength is normal. Tongue ismidline. Muscle bulk, tone, and strength are normal. [...] <Electronically signed by Eriberto Stover DO> 03/14/24 1437 [facility] Work Phone: 1([phone]) 278-654710-31-2024 Progress note Author Altaf Jones [facility] March 14, 2024 1:29pmNote Date/TimeOctober 2023 1:27[place] [address] Hospitalist Progress Note Signed Patient: Mary Mcadams MR#: [id number] : 1955 Acct:[id number] Age/Sex: 68 / M Adm Date: 4 Loc: Room: [address] [place] [address] Type: ADM IN Attending Dr: Altaf Jones MD Copies to: ~ Date of Service: 03/14/2024 Subjective Subjective Narrative: Patient is awake alert oriented x 3. He appears in mild respiratory distress. On examination expiratory wheezes audible bilaterally. JVD present bilaterally. Pviyo-tj-ocrm ultrasound is notable for decreased ejection fraction and increased intravenous pressure Abdomen soft benign Neurological as noted. No evidence of focal neurological deficit Assessment and plan 1. Acute decompensated CHF. POCUS indicates an ejection fraction that is seemingly read less than the reported previously 45 to50%. Will obtain a formal echo Diuretic therapy with IV furosemide 2. COPD exacerbation. Patient with chronic history of pulmonary sarcoidosis Initiate bronchodilators and systemic steroids 3. Severe proximal right internal carotid artery stenosis Further management per vascular surgery 4. Confusional state. Does not appear to be too serious at this time. Probably some delirium due tomultiple coexistent issues. Neurology consultation is pending. MRI [...] 03/14/24 09:00 03/14/24 10:08 Aspirin 81 Mg Tablet.Dr PO 03/14/25 08:59 81 mg DAILY ALEX Administration Atorvastatin Calcium 40 mg 03/14/24 21:00 Atorvastatin 40 Mg Tablet PO 03/14/25 20:59 QPM ALEX Bisacodyl 10 mg 03/14/24 02:07 Bisacodyl 5 Mg Tablet.Dr PO 03/14/25 02:06 DAILY PRN Constipation Budesonide/Formoterol [...] spray 03/14/24 09:00 03/14/24 10:36 Fluticasone Propionate Davin 120 Davin/16 Gm Bottle INTRANASAL 03/14/25 08:59 1 spray [...] PRN Alcohol Withdrawal Protocol Methylprednisolone 32 mg 10/31/24 10:45 03/14/24 10:35 Methylprednisolone 16 Mg Tablet [...] <Electronically signed by Altaf Jones MD> 03/14/24 1329 [facility] Work Phone: 1(182) 783-627010-31-2024 History and physical note Author Gabriela Nobles [facility] March 14, 2024 4:28amNote Date/TimeOctober 2023 9:16pm[place] [address] Hospitalist H&P Signed Patient: Mary Mcadams MR#: [id number] : 1955 Acct:[id number] Age/Sex: 68 / M Adm Date: 4 Loc: Room: [address] [place] [address] Type: ADM IN Attending Dr: Gabriela Nobles MD Copies to: DO Gabriela Waller MD Paula G Smith, DATA CENTER ARCHITECT~ HPI DATE OF EXAMINATION: 03/13/24 CHIEF COMPLAINT: altered mental status HISTORY OF PRESENT ILLNESS: Mr. Mcadams is a 68-year-old male with a PMH of A-fib, pulmonary sarcoidosis, HTN, systolic heart failure?last EF 45 to 50%, nonischemic cardiomyopathy, dailyalcohol use?last drink Monday the presented to [facility] emergency room for altered mental status. [...] his doctor's appointment. He denies fever, chills, nauseaor vomiting, does complain of constipation. Son states that he walked into his house today and found him hunched over a coffee table. Patient reports that he fell off the couch this morning and hit his head and possibly may have had loss of consciousness. Son states they found a voicemail from homehealth physical therapy, she reported to him that the patient was having difficulty staying awake this morning while she was there. [facility] chart review?EMS was dispatched to the patient's house for chest pains, upon arrival and found patient sitting on couch groaning loudly. EMS reports son was present and reported making the patient's stop drinking last due to ongoing cardiac issues. Note states patient was oriented but could not remain focused, EKG shows A-fib. Upon arrival to [facility] emergency room patient was alert and [...] flow through this area, moderate to marked bilateralpulmonary infiltrates and possibly chronic changes within the lungs. Patient has known history of pu lmonary sarcoidosis. CBC with a white blood cell count of 8.7, H&H 11.1/33.4. Coags unremarkable. CMP was unremarkable, albumin low at 2.9. Ammonia 20. Troponin negative at 8.8. Magnesium 1.5. Lipase 29. Urine drug screen positive for opiates, blood alcohol less than 3. He received 1 L saline bolus, ME 20 mg Tylenol. Transferred here to [facility] under the care of the hospitalist team. Review of Systems Review of Systems Review of systems: A 10 point review of systems was obtained, negative unless noted in the HPI or below. [facility] Medical History (Updated 03/13/24 @ 23:04 by [...] mcg/dose blistr powdr for inhalation inhalation 02/02/24 [HistoryConfirmed 03/08/24] rivaroxaban 20 mg tablet (Xarelto) 20 mg PO DAILY.WITH.BKFAST 30 days #30 tabs 02/04/24 [Rx Confirmed 03/08/24] carvedilol 12.5 mg tablet 12.5 mg PO BID 30 days #60 tabs 02/14/24 [Rx Confirmed 03/08/24] pantoprazole 40 mg tablet,delayed release See Rx Instructions .Route .COMPLEX #90 tabs 02/18/24 [RxConfirmed 03/08/24] amiodarone 200 mg tablet 200 mg [...] days): 3 Documented By: Maricruz Godoy APRN 03/13/246 Signed By: <Electronically signed by CHARLEY Godoy> 03/13/24 2348 <Electronically signed by Gabriela Nobles MD> 03/14/24 0428 [facility] Work Phone: 1([phone]) 789-144510-25-2024 Evaluation note* Diagnosis Onset Date Resolution Status Admit Date Abdominal pain resolvedOct2023 1:23pmAtrial fibrillationresolvedOct2023 1:23pmChronic HFrEF (heart failure with reduced ejection fraction)resolved March 08, 2024 1:23pmHypertensionresolvedOct2023 1:23pm Nonischemic cardiomyopathyresolvedOct2023 1:23pmSarcoidosis of lung resolvedOct2023 1:23pmAbdominal painresolvedOctober 2023 8:27pm Alcohol dependenceresolvedOctober 2023 8:27pmAtrial fibrillationresolved March 13, 2024 8:27pmCarotid stenosis, rightresolvedOctober 2023 8:27pmChronic HFrEF (heart failure with reduced ejection fraction)resolved March 13, 2024 8:27pmEncephalopathy acuteresolvedOct2023 8:27pm HypertensionresolvedOctober 2023 8:27pmMild left ventricular systolic dysfunctionresolvedOctober 2023 8:27pmNonischemic cardiomyopathyresolved March 13, 2024 8:27pmPersistent atrial fibrillationresolvedOctober 2023 8:27pmPulmonary sarcoidosisresolvedOctober 2023 8:27pmEncephalopathy acuteNovember 2023 1:58pmAtrial fibrillationresolvedNovember 2023 1:58pmChronic HFrEF (heart failure with reduced ejection fraction)resolved March 25, 2024 1:58pmHypertensionresolvedNovember 2023 1:58pm Nonischemic cardiomyopathyresolvedNovember 2023 1:58pmSarcoidosis of lung resolvedMarember 2023 1:58pmAltered mental statusacuteDecember 2023 10:49amHypotensionacuteJanuary 2024 2:25pmRectal bleedingacuteJanuary 2024 2:25pmAtrial fibrillationresolvedJanuary 2024 2:25pmChronic HFrEF (heart failure with reduced ejection fraction)resolvedMayuary 2024 2:25pmNonischemic cardiomyopathyresolvedJanuary 2024 2:25pmSarcoidosis of lungresolvedJanuary 2024 2:25pm [facility] Work Phone: 1(571) 418-608010-18-2024 Discharge summary Author Altaf Jones [facility] March 01, 2024 12:16pmNote Date/TimeOctober 2023 12:12pm[place] [address] Discharge Summary Signed Patient: Mary Mcadams MR#: [id number] : 1955 Acct:[id number] Age/Sex: 68 / M Adm Date: 4 Loc: Room: [address] [place] [address]: Altaf Jones MD Copies to: MD Adam Carballo,DO~ Providers Date of Discharge: 03/01/24 Discharging Provider: Altaf Jones Primary Care Provider: Adam Del Valle Consults: 02/29/24 00:15 Consult to Cardiology Routine Comment: Consulting Provider: [facility], [facility] Reason For Exam: chf Has Provider [...] patient was discharged home in stable condition the. He will follow-up with PCP, cardiology and pulmonary routinely. Medical therapywill be continued essentially unchanged otherwise as noted below. Time Spent with Patient Time spent providing/coordinating discharge services (# min): 40 Discharge Plan Discharge Plan Patient Disposition: Home Health [facility] Activity: No Activity Restriction Diet: Low-Sodium Additional [...] Instructions: 2 liters at HS and napping [facility] Ellipta 200-62.5-25 mcg blister with device 1 [...] signed by Altaf Jones MD> 03/01/24 1216 [facility] Work Phone: 1([phone]) 481-332510-18-2024 Progress note Author Shannon Gonzalez [facility] March 01, 2024 9:53amNote Date/TimeOct2023 9:53amAma[place] [address] Cardiology Progress Note Signed Patient: Mary Mcadams MR#: [id number] : 1955 Acct:[id number] Age/Sex: 68 / M Adm Date: 4 Loc: Room: [address] [place] [address] Type: ADM IN Attending Dr: Altaf Jones MD Copies to: ~ Date of Service: 03/01/2024 Subjective Principal diagnosis: Systolic heart failure/persistent atrial fibrillation Interval history: Mr. Mcadams is a 68 year old male who is being seen at request of the hospitalist for the problemsnoted above. I saw the patient in consultation on January 30, 2024 when he presented with atrial fibrillation for the first time. He was placed on Xarelto with the plan for antiarrhythmics and/or ca rdioversion in several weeks. At the time his echocardiogram revealed normal ejection fraction. He does have history of remote left ventricular systolic dysfunction ejection fraction 45% and for thatreason he was on Entresto and beta-abisai therapy. [...] cardioversions. The patient noticed recently progressive dyspnea withlower extremity edema. He had no hemoptysis and no chest pain. Hehas no orthopnea or PND and no increased abdominal girth or significant weight gain. He has been compliant with his medical therapy asprescribed. He is nondiabetic with no history of chronic kidney disease. There is an indication there is record of pulmonary emphysema and bullous lungs. He had previous CT ofthe chest from last month revealing extensive scarring of his lungs and calcifications of lymph nodes. The patient was foundto be in atrial fibrillation with RVR on presentation and was found to have significant bilateral lower extremity edema. His renal function and liver function were normal. X-ray of the chest revealedno changes from last month. Patient has been [...] by persistent atrial fibrillation. The expectation or p rogressiveimprovement of symptoms and resolution of the edema, as an outpatient the patient will bereferred for cardiac MRI to rule out cardiac [...] Localized edema Documented By: Shannon Gonzalez MD, [facility] 4 0949 Signed By: <Electronically signed by MD POOL Gonzalez> 03/01/24 0953 [facility] Work Phone: 1(411) 296-379810-18-2024 [facility]-20[facility] Consult note Author Shannon Gonzalez [facility] February 29, 2024 3:45pmNote Date/TimeOct2023 3:42pmAma[place] [address] Cardiology Consult Note Signed Patient: Mary Mcadams MR#: [id number] : 1955 Acct:[id number] Age/Sex: 68 / M Adm Date: 4 Loc: Room: [address] [place] [address] Type: ADM IN Attending Dr: Altaf Jones MD Copies to: MD Adma Carballo,DO Shannon Gonzalez MD, FACC~ Cardiology HPI History of Present Illness Consult Date: 02/29/24 Reason for Consult: Atrial fibrillation/dyspnea on exertion HPI: Mr. Mcadams is a 68 year old male who is being seen at request of the hospitalist for the problemsnoted above. I saw the patient in consultation on January 30, 2024 when he presented with atrial fibrillation for the first time. He was placed on Xarelto with the plan for antiarrhythmics and/or ca rdioversion in several weeks. At the time his echocardiogram revealed normal ejection fraction. He does have history of remote left ventricular systolic dysfunction ejection fraction 45% and for thatreason he was on Entresto and beta-abisai therapy. [...] cardioversions. The patient noticed recently progressive dyspnea withlower extremity edema. He had no hemoptysis and no chest pain. Hehas no orthopnea or PND and no increased abdominal girth or significant weight gain. He has been compliant with his medical therapy asprescribed. He is nondiabetic with no history of chronic kidney disease. There is an indication there is record of pulmonary emphysema and bullous lungs. He had previous CT ofthe chest from last month revealing extensive scarring of his lungs and calcifications of lymph nodes. The patient was foundto be in atrial fibrillation with RVR on presentation and was found to have significant bilateral lower extremity edema. His renal function and liver function were normal. X-ray of the chest revealedno changes from last month. Patient has been [...] is covered above in HPI was unremarkable [facility] Medical History (Updated 02/29/24 @ 15:44 by [...] mcg/dose blistr powdr for inhalation inhalation 02/02/24 [HistoryConfirmed 02/05/24] rivaroxaban 20 mg tablet (Xarelto) 20 mg PO DAILY.WITH.BKFAST 30 days #30 tabs 02/04/24 [Rx Confirmed 02/28/24] carvedilol 12.5 mg tablet 12.5 mg PO BID 30 days #60 tabs 02/14/24 [Rx Confirmed 02/28/24] pantoprazole 40 mg tablet,delayed release See Rx Instructions .Route .COMPLEX #90 tabs 02/18/24 [RxConfirmed 02/28/24] Exam Physical Exam Vital Signs: Temp [...] Lymph # (Auto) 0.6 L (1.00-4.8) x10E3/uL [place] # (Auto) 0.6 (0.0-0.8) x10E3/uL Eos # [...] Localized edema Documented By: Shannon Gonzalez MD, [facility] 4 153 Signed By: <Electronically signed by [facility] Shannon Gonzalez> 02/29/24 1545 [facility] Work Phone: 1([phone]) 980-667610-17-2024 Progress note Author Altaf Jones [facility] February 29, 2024 12:03pmNote Date/TimeOct2023 11:53[place] [address] Hospitalist Progress Note Signed Patient: Mary Mcadams MR#: [id number] : 1955 Acct:[id number] Age/Sex: 68 / M Adm Date: 4 Loc: Room: [address] [place] [address] Type: ADM IN Attending Dr: Altaf Jones [...] of care and confirmed it with the re sident/student/PHOTOFLASH POWDER MIXER. Patient, Mary Mcadams, is a 68 year [...] of the examination today the patient appears euvolemic.Central venous pressure is low. Heart rate does [...] on room air, clear to auscultation bilaterally, symmetricchest rise, no wheezes/rales/rhonci ABDOMEN: Soft, non-tender, non-distended, [...] spray 02/29/24 09:00 02/29/24 08:49 Fluticasone Propionate Davin 120 Davin/16 Gm Bottle INTRANASAL 02/28/25 08:59 1 spray [...] <Electronically signed by Altaf Jones MD> 02/29/24 1201 [facility] Work Phone: 1([phone]) 418-463910-17-2024 History and physical note Author Silvano Reed [facility] February 29, 2024 1:28amNote Date/TimeOct2023 12:24[place] [address] Hospitalist H&P Signed Patient: Mary Mcadams MR#: [id number] : 1955 Acct:[id number] Age/Sex: 68 / M Adm Date: 4 Loc: Room: [address] [place] [address] Type: ADM IN Attending Dr: Silvano Reed DO Copies to: Adam Del Valle,DO Silvano Reed, DO Maricruz Godoy, DATA CENTER ARCHITECT~ HPI DATE OF EXAMINATION: 02/28/24 CHIEF COMPLAINT: shortness of breath HISTORY OF PRESENT ILLNESS: Mr. Mcadams is a 68-year-old male with a PMH of A-fib, pulmonary and cardiac sarcoidosis, COPD, aspergilloma, chronic respiratory failure with hypoxia?home oxygen, BPH, HTN the presents to the emergency room tonight for complaints of shortness of breath. Patient states for the last few days he hashad increasingshortness of breath, inability to lay flat, having to wear his oxygen at all times. He denies chest pain, fever or chills, nausea or vomiting. He also denies a history of heart failure.He reports that his right leg has been [...] will be admitted as inpatient to the [facility] telemetry floor. Review of Systems Review of Systems Review of systems: A 10 point review of systems was obtained, negative unless noted in the HPI or below. [facility] Medical History Alcohol dependence Afib Rectal bleeding [...] mcg/dose blistr powdr for inhalation inhalation 02/02/24 [HistoryConfirmed 02/05/24] rivaroxaban 20 mg tablet (Xarelto) 20 mg PO DAILY.WITH.BKFAST 30 days #30 tabs 02/04/24 [Rx Confirmed 02/28/24] carvedilol 12.5 mg tablet 12.5 mg PO BID 30 days #60 tabs 02/14/24 [Rx Confirmed 02/28/24] pantoprazole 40 mg tablet,delayed release See Rx Instructions .Route .COMPLEX #90 tabs 02/18/24 [RxConfirmed 02/28/24] Exam Physical Exam Vital Signs: Temp [...] % (Auto) 9.9 % (.) 02/28/24 22:00 [place] % (Auto) 10.0 % (.) 02/28/24 22:00 Eos % (Auto) 0.9 % (.) 02/28/24 22:00 Baso % (Auto) 0.4 % (.) 02/28/24 22:00 Nucleat RBC Rel Count 0.1 /100 WBC (0-0.5) 02/28/24 22:00 Neut # (Auto) 4.6 x10E3/uL (1.8-7.7) 02/28/24 22:00 Lymph # (Auto) 0.6 x10E3/uL (1.00-4.8) L 02/28/24 22:00 [place] # (Auto) 0.6 x10E3/uL (0.0-0.8) 02/28/24 22:00 [...] being Xarelto for anticoagulation. His heart rate wascontrolled. And his lungs were clear and he [...] will put in a [place] catheter which hopefullycan be removed in 24 to 48 hours [...] signed by Silvano Reed DO> 02/29/24 0128 [facility] Work Phone: 1([phone]) 204-220110-08-2024 History of Present illness Narrative* Olivia Toro LPN - 02/20/2024 2:00 PM EDT Patient here for an EKG visit ordered by Dr. Gonzalez due to new onset afib, diagnosed at [facility] on 02/04/24. Dr. Burroughs in suite to review EKG prior to discharge. Medication list Updated verbally. Patient has complaints of SOB and dizziness while in office. To Dr. Gonzalez to read Vitals: 02/20/24 1422 BP: 140/80 BP Location: Left arm Patient Position: Sitting Pulse: 102 Weight: 76.7 kg (169 lb) Height: 1.829 m (6') documented in this [facility] Work Phone: 1(659) 548-771609-22-2024 Discharge summary Author Silvano Reed [facility] February 04, 2024 4:34pmNote Date/TimeSeptember 2023 2:14pm[place] [address] Discharge Summary Signed Patient: Mary Mcadams MR#: [id number] : 1955 Acct:[id number] Age/Sex: 68 / M Adm Date: 4 Loc: Room: [address] [place] [address]: Silvano Reed DO Copies to: DO Shannon Waller MD, [facility] Silvano Reed DO~ Providers Date of Discharge: 02/04/24 Discharging Provider: Silvano Reed Primary Care Provider: Adam Del Valle Consults: 02/02/24 10:35 Consult to Cardiology Routine Comment: Consulting Provider: [facility], [facility] Reason For Exam: New A-Fib with [...] and dyspnea on exertion that had been gettingslowly worse for several weeks and months. He even saw his primary electrical engineer, Dr. 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 He [...] long time was not changed by the assessment consultant during hospital stay. An echocardiogram was [...] Instructions: 2 liters at HS and napping [facility] Ellipta 200-62.5-25 mcg blister with device 1 [...] % (Auto) 72.1, Lymph % (Auto) 13.6, [place] % (Auto) 12.9, Eos % (Auto) 1.2, Baso % (Auto) 0.2, Nucleat RBC Rel Count 0.1, Neut # (Auto) 5.6, Lymph # (Auto) 1.1, [place] # (Auto) 1.0 H, Eos # (Auto) 0.1, Baso # (Auto) 0.0, PHA CreatinineClear 86.96, Sodium 133 L, Potassium 4.4, Chloride 100, Carbon Dioxide 29.9, Anion Gap 7.5, BUN 22,Creatinine 0.88, Est GFR (CKD-EPI) > 60.0, Glucose 83, Calcium 8.7 Documented By: Silvano Reed DO 1414 Signed By: <Electronically signed by Silvano Reed DO> 02/04/24 1634 [facility] Work Phone: 1(349) 285-656209-22-2024 Progress note Author Shannon Gonzalez [facility] February 04, 2024 1:00pmNote Date/TimeSept2023 1:[address]pm[address] [address] Cardiology Progress Note Signed Patient: Mary Mcadams MR#: [id number] : 1955 Acct:[id number] Age/Sex: 68 / M Adm Date: 4 Loc: 3T Room: [address] [place] [address] Type: ADM IN Attending Dr: Silvano Reed [...] initiated and he was transferred here. His echocardiogramtoday demonstrated normal ejection fraction. No significant valvular [...] controlled heart rate off of IV diltiazem. Hehad a short run of ventricular tachycardia. Echocardiogramrevealed ejection fraction 50-55% which is an improvement from previous recording. Patient can be discharged home today on carvedilol and cont inue Xarelto 20 mg daily. Cardioversion if necessary [...] % (Auto) 72.1 Lymph % (Auto) 13.6 [place] % (Auto) 12.9 Eos % (Auto) 1.2 Baso % (Auto) 0.2 Nucleat RBC Rel Count 0.1 Neut # (Auto) 5.6 Lymph # (Auto) 1.1 [place] # (Auto) 1.0 H Eos # (Auto) [...] Plan: Continue Xarelto indefinitely Code(s): Z79.01 - meterman (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 Documented By: Shannon Gonzalez MD, [facility] 4 [id number] Signed By: <Electronically signed by MD POOL Gonzalez> 02/04/24 1300 [facility] Ctr Work Phone: 1(421) 885-480309-21-2024 Progress note Author Silvano Reed [facility] February 03, 2024 2:11pmNote Date/TimeSept2023 12:35pmAma[place] [address] Hospitalist Progress Note Signed Patient: Mary Mcadams MR#: [id number] : 1955 Acct:[id number] Age/Sex: 68 / M Adm Date: 4 Loc: Room: [address] [place] [address] Type: ADM IN Attending Dr: Silvano Reed DO Copies to: ~ Date of Service: 02/03/2024 Subjective Subjective Narrative: Patient assessed awake and alert in bed today. He states that he was able to walk to and from the bathroom without difficulty, and he thinks his breathing has improved. He does not report feeling anyepisodes of palpitations. Exam Physical Exam Vital Signs: [...] Dose Route Start Last Admin Trade Name Indraq PRN Reason Stop Dose Admin Albuterol 2.5 [...] spray 02/03/24 09:00 02/03/24 08:18 Fluticasone Propionate Davin 120 Davin/16 Gm Bottle INTRANASAL 02/02/25 08:59 1 spray [...] Administration Non-Formulary Medication 1 inh 02/03/24 09:00 Oobjahuertc-Ehxlugscl-Cdtohvty [Trelegy Ellipta] INHALATION 02/02/25 08:59 DAILY ALEX [...] atrial fibrillation - Accepted inpatient transfer from [facility] - Currently hemodynamically stable - BNP 239. - Stat EKG shows afib. - Cardizem drip -titrate for heart rate between 70 and 90 bpm. - Trans thoracic echocardiogram pending. - Telemetry event log shows 8 beats of VTach at 03:48. - We clarified with Dr. 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 - Cardiology consult placed, will follow recommendations Recent symptomatology of progressive dyspnea, and dyspnea on exertion. BNP level at the [facility] was extremely high at 2166. - Cardiology consultation. 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 half-way conditions: Chronic hypoxic respiratory failure - continue 2 liters by [place] as at home. Take medications as directed [...] bedside nurse to indicate that the patient canhave the Cardizem drip stopped while waiting for cardiology to see him and enter their orders today. I personally examined the patient on this day of the encounter. I reviewed the relevant history, performed the gracia elements of the physical examination, and coordinated the plan of care and I confirmed the resident's medical documentation as written. - - - Silvano Reed DO. Internal Medicine+ Hospitalist attending physician. Documented By: Silvano Reed DO 1019 Signed By: <Electronically signed by Silvano Reed DO> 02/03/24 1411 <Electronically signed by DO MAIA Billy> 02/03/24 1235 [facility] Work Phone: 1(569) 162-297009-21-2024 Consult note Author Shannon Gonzalez [facility] February 03, 2024 1:43pmNote Date/TimeSept2023 1:38pmAmawalk[place] [address] Cardiology Consult Note Signed Patient: Mary Mcadams MR#: [id number] : 1955 Acct:[id number] Age/Sex: 68 / M Adm Date: 4 Loc: Room: [address] [place] [address] Type: ADM IN Attending Dr: Silvano Reed DO Copies to: DO Shannon Waller MD, [facility] Silvano Reed DO~ Cardiology HPI History of [...] initiated and he was transferred here. His echocardiogramtoday demonstrated normal ejection fraction. No significant valvular [...] 11 point review of system essentially unremarkable [facility] Medical History Cardiac sarcoidosis Bullous emphysema History [...] Lymph # (Auto) 0.5 L (1.00-4.8) x10E3/uL [place] # (Auto) 0.9 H (0.0-0.8) x10E3/uL Eos [...] @ 10 MG/HR 10 mls/hr IV .Q10H ALEX Rx#:[id number] Oral 650 / 650 550 / 550 [...] atrial fibrillation Documented By: Shannon Gonzalez MD, [facility] 4 1332 Signed By: <Electronically signed by MD POOL Gonzalez> 02/03/24 3373 [facility] Work Phone: 1(842) 975-971309-20-2024 History and physical note Author Silvano Reed [facility] February 02, 2024 3:17pmNote Date/TimeSept2023 12:05pmAmawalk[place] [address] Hospitalist H&P Signed Patient: Mary Mcadams MR#: [id number] : 1955 Acct:[id number] Age/Sex: 68 / M Adm Date: 4 Loc: 3T Room: [address] [place] [address] Type: ADM IN Attending Dr: Silvano Reed DO Copies to: Rubin Billy DO, RES Adam Del Valle,DO Silvano Reed DO~ HPI DATE OF EXAMINATION: 02/02/24 CHIEF COMPLAINT: New onset afib HISTORY OF PRESENT ILLNESS: Patient is a 68-year-old male with past medical history of nonischemic cardiomyopathy, sarcoidosis,BPH, hypertension, acoustic neuroma who presented to [facility] on 01/31 with complaint of new onset shortness of breath. Hestates that he was at home and started feeling short of breath, especially with exertion, and he thought he would fall if he walked. He has never had an episodelike thisbefore, and he has been taking his medications as directed prior to presenting to the hospital. He was diagnosed with Afib w/ RVR at [place] and transferred to [facility] as an inpatient on 02/01. His medications seem to help with his pulmonary issues, but he thinks his shortness of breath has been worsening over the past 2 months. He last saw his electrical engineer, Dr. Alvares in October 2023. Per his [...] and no additional complaints, except as documented [facility] Medical History Cardiac sarcoidosis Bullous emphysema History [...] atrial fibrillation - Accepted inpatient transfer from [facility] - Currently hemodynamically stable - BNP 2166 - Stat EKG shows afib - Cardizem drip -titrate for heart rate between 70 and 90 bpm. - Trans thoracic echocardiogram. - Cardiology consult placed, will follow recommendations Recent symptomatology of progressive dyspnea, and dyspnea on exertion. BNP level at the [facility] was extremely high at 2166. -Cardiology consultation. -Awaiting echocardiogram. meterman conditions: Chronic hypoxic respiratory failure - continue 2 liters by [place] as at home. Take medications as directed [...] - - - Silvano Reed DO. Internal Medicine+ Hospitalist attending physician. The patient reports that [...] signed by DO MAIA Billy> 02/02/24 1428 [facility] Work Phone: 1(414) 163-861109-20-2024 Evaluation note* Diagnosis Onset Date Resolution Status Admit Date Acoustic neuroma acuteSeptember 2023 9:23amAnticoagulatedacuteSeptember 2023 9:23am Benign prostatic hyperplasia with lower urinary tract symptomsacuteSept2023 9:23amCardiac sarcoidosisacuteSeptember 2023 9:23amChronic HFrEF (heart failure with reduced ejection fraction)acuteSept2023 9:23amHypertensionacuteSept2023 9:23amNew onset atrial fibrillation acuteSept2023 9:23amPulmonary sarcoidosisacuteSeptember 2023 9:23amNonischemic cardiomyopathychronicSept2023 9:23amAtrial fibrillation with RVRresolvedSept2023 9:23amNonsustained paroxysmal ventricular tachycardiaresolvedSeptember 2023 9:23amAtrial fibrillation acuteOctober 2023 2:16pmChronic HFrEF (heart failure with reduced ejection fraction)acuteOctober 2023 2:16pmHypertensionacuteOctober 2023 2:16pm Rectal bleedingacuteOctober 2023 2:16pmNonischemic cardiomyopathychronic October 2023 2:16pmSarcoidosis of lungresolvedOctober 2023 2:16pm Alcohol dependenceacuteOctober 2023 11:30pmAtrial fibrillationacuteOctober 2023 11:30pmHypertensionacuteOctober 2023 11:30pmPulmonary sarcoidosisacuteOctober 2023 11:30pmAcute on chronic clinical systolic heart failureresolvedOctober 2023 11:30pmBullous emphysemaresolvedOctober 2023 11:30pmChronic respiratory failure with hypoxiaresolvedOctober 2023 11:30pmHyponatremiaresolvedOctober 2023 11:30pmLower extremity edema resolvedOctober 2023 11:30pmShortness of breathresolvedOctober 2023 11:30pmAbdominal painacuteOctober 2023 1:23pmAtrial fibrillationacute March 08, 2024 1:23pmChronic HFrEF (heart failure with reduced ejection fraction)acuteOctober 2023 1:23pmHypertensionacuteOctober 2023 1:23pmNonischemic cardiomyopathychronicOctober 2023 1:23pmSarcoidosis of lungresolvedOctober 2023 1:23pmAbdominal painacuteOctober 2023 8:27pmAlcohol dependenceacuteOctober 2023 8:27pmAtrial fibrillationacute March 13, 2024 8:27pmCarotid stenosis, rightacuteOctober 2023 8:27pm Chronic HFrEF (heart failure with reduced ejection fraction)acuteOctober 2023 8:27pmEncephalopathy acuteacuteOctober 2023 8:27pmHypertensionacute March 13, 2024 8:27pmMild left ventricular systolic dysfunctionacuteOctober 2023 8:27pmPersistent atrial fibrillationacuteOctober 2023 8:27pm Pulmonary sarcoidosisacuteOctober 2023 8:27pmNonischemic cardiomyopathy chronicOctober 2023 8:27pmAtrial fibrillationacuteNovember 2023 1:58pmChronic HFrEF (heart failure with reduced ejection fraction)acuteNov2023 1:58pmEncephalopathyacuteNov2023 1:58pmHypertensionacute March 25, 2024 1:58pmNonischemic cardiomyopathychronicNovember 2023 1:58pmSarcoidosis of lungresolvedNovember 2023 1:58pm [facility] Work Phone: 1(544) 738-453305-31-2024 History of Present illness Narrative* Steven Alvares [...] my direction and personally dictated by me. Natiave reviewed the chart and agree that the record accurately reflects my personal performance of the history, physical exam, discussion and plan. documented in this [facility] Work Phone: 1(346) 448-844305-31-2024 Instructions* Patient Instructions* Beverley Morse LPN - [...] time of your visit. documented in this [facility] Work Phone: 1(458) 501-388204-01-2024 Hospital Discharge instructions Patient Education 08/14/2023 16:09:27 [...] urethra. Follow these instructions at home: Take xjfg-zsh-wbdxrsg and prescription medicines only as told by [...] provider. Document Revised: 11/17/2021 Document Reviewed: 11/17/2021 [employer] Patient Education 2022 [employer] 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 They are also encouraged to continue exercise to achieve/maintain a normal BMI. Patient is instructed on home BP measurements: - rest for 5 minutes w/o talking- positioned w/ feeton floor and arm supported- average best 2/3 readings w/ goal < 135/85 Instructed to stop in for recheck in 2 wks Feb,Nonischemic cardiomyopathy (ICD-10 - I42.8)Low salt diet and monitor weights daily. Notify office w/ gain of > 3lbs, change in breathlessness or increased edema. Feb,hronic HFrEF (heart failure with reduced ejection fraction) (ICD-10 - I50.22)Instructed on low salt diet, exercise and daily weights. Instructed to notify office for any unexpected weight gain > 3lbs and/or increased dyspnea, difficulty breathing during sleep, worsening lower extremity swelling, chest pain or lightheadedness. 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 Feb,Lumbar spondylosis (ICD-10 - M47.816)The patient is instructed to avoid bending, twisting or lifting. They are to use intermittent heat and ice as needed. They may schedule a massage or gentle manipulation. They may safely use Tylenol as needed. [employer] Other 07-23-2023 Evaluation note* Encounter Date Diagnosis Assessment Notes Treatment Notes Treatment Clinical Notes Nov, Acoustic neuroma (ICD-10 - D33.3 ) MRI: [id number] left IAC - 12/2021 (no change from 2016) [employer] Other 07-17-2023 Hospital Discharge instructions Patient Education [...] and water are not available, use hand net mender. 2.Clean your penis with soap and water. [...] reusable catheter in a small bathroom. Take miqc-aba-myfkssj and prescription medicines only as told by [...] provider. Document Revised: 03/07/2022 Document Reviewed: 03/07/2022 [employer] Patient Education 2022 [employer]. 11/28/2022 14:00:56 Benign Prostatic Hyperplasia Benign Prostatic [...] urethra. Follow these instructions at home: Take yoad-law-mutngfd and prescription medicines only as told by [...] provider. Document Revised: 11/17/2021 Document Reviewed: 11/17/2021 [employer] Patient Education 2022 [employer] 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 They are also encouraged to continue exercise to achieve/maintain a normal BMI. Aug,enign prostatic hyperplasia with lower urinary tract symptoms (ICD- 10 - N40.1)Yearly BABATUNDE and PSA Symptoms tolerable: Flomax and Finasteride Aug,Other retention of urine (ICD-10 - R33.8)Self catheterization during daytime Aug,Lumbar spondylosis (ICD-10 - M47.816)The patient is instructed to avoid bending, twisting or lifting. They are to use intermittent heat and ice as needed. They may schedule a massage or gentle manipulation. They may safely use Tylenol as needed. Aug,Medicare annual wellness visit, subsequent (ICD-10 - Z00.00) [...] and exercise. Reviewed age-appropriate preventive testing recommended. Aug,Screening PSA (prostate specific antigen) (ICD-10 - Z12.5) Aug,High risk medication use (ICD-10 - Z79.899) Aug,Hyponatremia (ICD-10 - E87.1)Decrease alcohol use, water restrict to 48 oz daily, salt food. Aug,astroesophageal reflux disease with esophagitis without hemorrhage (ICD-10 - K21.00) Aug,Nonischemic cardiomyopathy (ICD-10 - I42.8) Aug,hronic HFrEF (heart failure with reduced ejection fraction) (ICD-10 - I50.22) [employer] Other 10-03-2022 Hospital Discharge instructions Patient Education 02/14/2022 12:20:02 Acute Urinary Retention, Male, Oelv-ud-Reld Acute Urinary Retention, Male Acute urinary retention means that you cannot pee (urinate) at all, or that you pee too little and your bladder is not emptied completely. If it is not treated, it can lead to kidney damage or other serious problems. Follow these instructions at home: Take dmqn-dwh-ftsxrwq and prescription medicines only as told by [...] 10/17/2008 Document Revised: 07/18/2019 Document Reviewed: 06/02/2017 [employer] Patient Education 2019 [employer]. Follow Up Care 08/09/2021 13:00:29 With:EMERSON SALMON, Clinton Hernandez, URL Address: [facility] [address] [place] [address]- [phone] When:08/15/2022 [facility] [place] 06-14-2022 History and physical note Author Gregg Hilliard [facility] October 26, 2021 10:26amNote Date/TimeJun2021 10:[address] [address] Gastroenterology H&P Signed Patient: Mary Mcadams MR#: [id number] : 1955 Acct:[id number] Age/Sex: 66 / M Adm Date: 2 Loc: Room: Type: [facility] Attending Dr: Gregg Hilliard DO Copies [...] inhalation device (Spiriva with HandiHaler) 1 cap INHALATIONDAILY 05/11/18 [History Confirmed 10/26/21] fluticasone propionate 230 [...] by Gregg Hilliard Jr, DO> 10/26/21 1026 [facility] Work Phone: 1([phone]) 117-277406-14-2022 [facility] note* Encounter Date Diagnosis Assessment Notes Treatment Notes Treatment Clinical Notes September, History of colon polyps (ICD-10 - Z86.010) September,nemia, unspecified type (ICD-10 - D64.9) [employer] Other 05-24-2022 Evaluation note* Encounter Date Diagnosis Assessment Notes Treatment Notes Treatment Clinical Notes September, Chronic obstructive pulmonary disease, unspecified (ICD-10 - J44.9) [employer] Other 04-06-2022 Evaluation note* Encounter Date Diagnosis Assessment Notes Treatment Notes Treatment Clinical Notes Aug, 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 2.Prepare the supplies that you will use [...] reusable catheter in a small bathroom. Take ixqr-nua-kwdfgot and prescription medicines only as told by [...] 06/03/2011 Document Revised: 08/21/2019 Document Reviewed: 12/20/2018 [employer] Patient Education 2020 [employer]. 08/09/2021 12:46:36 Benign Prostatic Hyperplasia Benign Prostatic [...] urethra. Follow these instructions at home: Take upmz-grw-wfspkis and prescription medicines only as told by [...] 05/01/2006 Document Revised: 03/26/2019 Document Reviewed: 06/05/2017 [employer] Patient Education [employer]. Follow Up Care 04/05/2021 12:45:32 With:Clinton NORMAN MD, URL Address: [facility] [address], [place] [address]- [phone] When:02/09/2022 Comments:6 months w PSA [facility] evaluation + Plan note Future Appointments Appointment Date:02/14/2022 11:45:00 AM Scheduled Provider:Clinton NORMAN MD Location:[facility] Appointment Type:URO Office Visit Diagnostic Tests Pending * PSA Total 08/09/21 [facility] evaluation + Plan note Future Appointments Appointment Date:09/05/2022 02:15:00 PM Scheduled Provider:Clitnon NORMAN MD Location:[facility] Appointment Type:URO Office Visit [facility] evaluation + Plan note Future Appointments Appointment Date:06/05/2023 12:45:00 PM Scheduled Provider:Clinton NORMAN MD Location:[facility] Appointment Type:URO Office Visit Diagnostic Tests Pending * PSA Total 11/28/22 [facility] evaluation + Plan note Future Appointments Appointment Date:02/19/2024 01:15:00 PM Scheduled Provider:Clinton [facility]MAN MD [facility] Type:URO Office Visit Diagnostic Tests Pending * PSA Total 08/14/23 [facility] evaluation + Plan note Future Appointments Appointment Date:02/03/2025 02:30:00 PM Scheduled Provider: Location:[facility] Appointment Type:URO Nurse Visit Appointment Date:02/10/2025 02:15:00 PM Scheduled Provider:Clinton NORMAN MD [facility] Type:URO Office Visit Future Scheduled Tests Laboratory* PSA Total 02/05/25 [facility] Evaluation noteNo assessment information available [facility] Work Phone: Evaluation note* Diagnosis Onset Date Resolution Status Anemia acutePersonal history of colonic polypsacute [facility] Work Phone: Evaluation noteNo [employer] [facility] [employer] Other Evaluation note* Diagnosis Non-ischemic cardiomyopathy (Multi)- Primary Other primary cardiomyopathies LV (left ventricular) mural thrombus Acute myocardial infarction, unspecified site, episode of care unspecified Diastolic dysfunction Unspecified heart disease Pulmonary sarcoidosis (Multi) Sarcoidosis Imbalance Abnormality of gait BMI 23.0-23.9, adult documented in this encounter [facility] Work Phone: Evaluation note* Diagnosis Onset Date Resolution Status Acoustic neuroma acuteAnticoagulatedacuteAtrial fibrillation with RVRacuteBenign prostatic hyperplasia with lower urinary tract symptomsacuteCardiac sarcoidosisacute Chronic HFrEF (heart failure with reduced ejection fraction)acuteHypertension acuteNew onset atrial fibrillationacuteNonsustained paroxysmal ventricular tachycardiaacutePulmonary sarcoidosisacuteNonischemic cardiomyopathychronic [facility] Work Phone: Evaluation note* Diagnosis Onset Date Resolution Status Acoustic neuroma acuteAnticoagulatedacuteBenign prostatic hyperplasia with lower urinary tract symptomsacuteCardiac sarcoidosisacuteChronic HFrEF (heart failure with reduced ejection fraction)acuteHypertensionacuteNew onset atrial fibrillationacute Pulmonary sarcoidosisacuteNonischemic cardiomyopathychronicAtrial fibrillation with RVRresolvedNonsustained paroxysmal ventricular tachycardiaresolved AnticoagulatedacuteAtrial fibrillationacuteChronic HFrEF (heart failure with reduced ejection fraction)acuteHypertensionacuteSarcoidosis of lungresolved Nonischemic cardiomyopathychronic [facility] Work Phone: Evaluation note* Diagnosis Onset Date Resolution Status Acoustic neuroma acuteAnticoagulatedacuteBenign prostatic hyperplasia with lower urinary tract symptomsacuteCardiac sarcoidosisacuteChronic HFrEF (heart failure with reduced ejection fraction)acuteHypertensionacuteNew onset atrial fibrillationacute Pulmonary sarcoidosisacuteNonischemic cardiomyopathychronicAtrial fibrillation with RVRresolvedNonsustained paroxysmal ventricular tachycardiaresolvedAtrial fibrillationacuteChronic HFrEF (heart failure with reduced ejection fraction) acuteHypertensionacuteRectal bleedingacuteNonischemic cardiomyopathychronic Sarcoidosis of lungresolvedAcute on chronic clinical systolic heart failureacute Shortness of breathacute [facility] Work Phone: Evaluation note* Diagnosis Onset Date Resolution Status Acoustic neuroma acuteAnticoagulatedacuteBenign prostatic hyperplasia with lower urinary tract symptomsacuteCardiac sarcoidosisacuteChronic HFrEF (heart failure with reduced ejection fraction)acuteHypertensionacuteNew onset atrial fibrillationacute Pulmonary sarcoidosisacuteNonischemic cardiomyopathychronicAtrial fibrillation with RVRresolvedNonsustained paroxysmal ventricular tachycardiaresolvedAtrial fibrillationacuteChronic HFrEF (heart failure with reduced ejection fraction) acuteHypertensionacuteRectal bleedingacuteNonischemic cardiomyopathychronic Sarcoidosis of lungresolvedAcute on chronic clinical systolic heart failureacute Alcohol dependenceacuteAtrial fibrillationacuteBullous emphysemaacute HypertensionacuteLower extremity edemaacutePulmonary sarcoidosisacuteShortness of breathacuteChronic respiratory failure with hypoxiachronicHyponatremiamunson healthcare [facility] hospitalic [facility] Work Phone: Evaluation note* Diagnosis Onset Date Resolution Status Acoustic neuroma acuteAnticoagulatedacuteBenign prostatic hyperplasia with lower urinary tract symptomsacuteCardiac sarcoidosisacuteChronic HFrEF (heart failure with reduced ejection fraction)acuteHypertensionacuteNew onset atrial fibrillationacute Pulmonary sarcoidosisacuteNonischemic cardiomyopathychronicAtrial fibrillation with RVRresolvedNonsustained paroxysmal ventricular tachycardiaresolvedAtrial fibrillationacuteChronic HFrEF (heart failure with reduced ejection fraction) acuteHypertensionacuteRectal bleedingacuteNonischemic cardiomyopathychronic Sarcoidosis of lungresolvedAcute on chronic clinical systolic heart failureacute Alcohol dependenceacuteAtrial fibrillationacuteBullous emphysemaacute HypertensionacuteLower extremity edemaacutePulmonary sarcoidosisacuteShortness of breathacuteChronic respiratory failure with hypoxiachronicHyponatremiachronic Atrial fibrillationacuteChronic HFrEF (heart failure with reduced ejection fraction)acuteHypertensionacuteNonischemic cardiomyopathychronicSarcoidosis of lungresUniversity Hospitals St. [facility] Work Phone: Evaluation note* Diagnosis Onset Date Resolution Status Acoustic neuroma acuteAnticoagulatedacuteBenign prostatic hyperplasia with lower urinary tract symptomsacuteCardiac sarcoidosisacuteChronic HFrEF (heart failure with reduced ejection fraction)acuteHypertensionacuteNew onset atrial fibrillationacute Pulmonary sarcoidosisacuteNonischemic cardiomyopathychronicAtrial fibrillation with RVRresolvedNonsustained paroxysmal ventricular tachycardiaresolvedAtrial fibrillationacuteChronic HFrEF (heart failure with reduced ejection fraction) acuteHypertensionacuteRectal bleedingacuteNonischemic cardiomyopathychronic Sarcoidosis of lungresolvedAlcohol dependenceacuteAtrial fibrillationacute HypertensionacutePulmonary sarcoidosisacuteAcute on chronic clinical systolic heart failureresolvedBullous emphysemaresolvedChronic respiratory failure with hypoxiaresolvedHyponatremiaresolvedLower extremity edemaresolvedShortness of breathresolvedAbdominal painacuteAtrial fibrillationacuteChronic HFrEF (heart failure with reduced ejection fraction)acuteHypertensionacuteNonischemic cardiomyopathychronicSarcoidosis of lungresolvedAbdominal painacuteAlcohol dependenceacuteAtrial fibrillationacuteCarotid stenosis, rightacuteChronic HFrEF (heart failure with reduced ejection fraction)acuteEncephalopathy acuteacute HypertensionacuteMild left ventricular systolic dysfunctionacutePersistent atrial fibrillationacutePulmonary sarcoidosisacuteNonischemic cardiomyopathy chronic [facility] Work Phone: Evaluation note* Diagnosis Persistent atrial fibrillation (Multi)- Primary Atrial fibrillation Non-ischemic cardiomyopathy (Multi) Other primary cardiomyopathies Chronic obstructive pulmonary disease, unspecified COPD type (Multi) BMI 20.0-20.9, adult High risk medication use Pulmonary sarcoidosis (Multi) Sarcoidosis Carotid artery stenosis without cerebral infarction, right Dyslipidemia Other and unspecified hyperlipidemia documented in this encounter [facility] Work Phone: Evaluation note* Diagnosis Hypotension [...] infarction documented in this encounter [facility] Work Phone: Evaluation note* Diagnosis Fatigue, unspecified type Non-ischemic cardiomyopathy (Multi) Other primary cardiomyopathies Diastolic dysfunction Unspecified heart disease LV (left ventricular) mural thrombus Acute myocardial infarction, unspecified site, episode of care unspecified 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 (Multi) Atrial fibrillation documented in this encounter [facility] Work Phone: Evaluation note* Diagnosis Chronic respiratory failure with hypoxia ([facility])- Primary Closed wedge compression fracture of T7 vertebra with routine healing, subsequent encounter Closed wedge compression fracture of T8 vertebra with routine healing, subsequent encounter Sarcoid myocarditis Hypotension, unspecified hypotension type Benign prostatic hyperplasia with lower urinary tract symptoms, symptom details unspecified Hypo-osmolality and hyponatremia Hypokalemia Hypopotassemia Sarcoidosis of lung ([facility]) Sarcoidosis Chronic systolic congestive heart failure ([facility]) Muscle weakness (generalized) Alcohol dependence, 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 Other and unspecified alcohol dependence, in remission [facility] Diagnosis Chronic respiratory failure with hypoxia ([facility])- Primary Closed wedge compression fracture of T8 vertebra with routine healing, subsequent encounter Closed wedge compression fracture of T7 vertebra with routine healing, subsequent encounter Sarcoidosis of lung ([facility]) Sarcoidosis Chronic systolic congestive heart failure ([facility]) Sarcoid myocarditis Gross hematuria Hypo-osmolality and hyponatremia Hypokalemia Hypopotassemia Alcohol dependence, 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[facility]) Other and unspecified alcohol dependence, in remission Benign prostatic hyperplasia with lower urinary tract symptoms, symptom details unspecified Other spondylosis, lumbar region Muscle weakness (generalized) Encephalopathy, unspecified type Occlusion and stenosis of right carotid artery Gastroesophageal reflux disease without esophagitis Esophageal reflux Chronic atrial fibrillation (CMS-HCC) Atrial fibrillation documented [facility]* Diagnosis Chronic systolic congestive heart failure (CMS-HCC)- Primary Chronic atrial fibrillation (CMS-HCC) Atrial fibrillation Sarcoidosis of lung ([facility]) Sarcoidosis Hypo-osmolality and hyponatremia Benign prostatic hyperplasia with lower urinary tract symptoms, symptom details unspecified documented [facility]* Diagnosis Atrial fibrillation, unspecified type (Multi) documented in this encounter [facility] Work Phone: Evaluation note* Diagnosis Non-ischemic cardiomyopathy (Multi) Other primary cardiomyopathies Cardiomyopathy, unspecified documented in this encounter [facility] Work Phone: Evaluation note* Diagnosis Other fatigue- Primary Non-ischemic cardiomyopathy (Multi) Other primary cardiomyopathies 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 (Multi) Atrial fibrillation High risk medication use Pulmonary sarcoidosis (Multi) Sarcoidosis BMI < 18.5 Current smoker documented in this encounter [facility] Work Phone: Evaluation note* Diagnosis High risk medication use- Primary 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 (Multi) Atrial fibrillation meterman (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 Long-term (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 Takotsubo syndrome BMI < 18.5 Cardiac sarcoidosis Chewing tobacco use Other cardiomyopathy LV dysfunction Left heart failure documented in this encounter [facility] Work Phone: Evaluation note* Diagnosis High risk medication use- Primary 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 (Multi) Atrial fibrillation meterman (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 Long-term (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 Takotsubo syndrome BMI < 18.5 Cardiac sarcoidosis Chewing tobacco use Other cardiomyopathy LV dysfunction Left heart failure High risk medication use documented in this encounter [facility] Work Phone: Evaluation note* Diagnosis High risk medication use- Primary 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 (Multi) Atrial fibrillation half-way (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 Long-term (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 Takotsubo syndrome BMI < 18.5 Cardiac sarcoidosis Chewing tobacco use Other cardiomyopathy LV dysfunction Left heart failure Cardiac sarcoidosis documented in this encounter [facility] Work Phone: History and physical note Author Silvano Reed [facility] CenterNote Date/TimeJune 2024 3:30[place] [id number] Hospitalist H&P Signed Patient: Mary Mcadams MR#: [id number] : 1955 Acct:[id number] Age/Sex: 69 / M Adm Date: 5 Loc: ER Room: Type: [facility] ER Attending Dr: Copies to: Adam Del Valle,DO Hasmukh Vides, DO Silvano Reed, ~ HPI DATE OF EXAMINATION: 11/11/24 CHIEF [...] except as mentioned elsewhere in the documentation. [facility] Medical History (Updated 11/11/24 @ 03:27 by [...] 11/10/24 23: MCH 27.0 pg (27.5-35.2) L 11/10/24: MCHC 33.4 g/dL (32.5-35.6) 11/10/24: RDW 16.5 % (12.0-14.8) H 11/10/24: Plt Count 262 x10E3/uL (150-450) 11/10/24: MPV 7.9 fl (6.6-10.1) 11/10/24: Neut % (Auto) 66.5 % (.) 11/10/24: Lymph % (Auto) 18.7 % (.) 11/10/24: [place] % (Auto) 9.3 % (.) 11/10/24: Eos % (Auto) 5.0 % (.) 11/10/24: Baso % (Auto) 0.5 % (.) 11/10/24: Nucleat RBC Rel Count 0.1 /100 WBC (0-0.5) 11/10/24: Neut # (Auto) 4.3 x10E3/uL (1.8-7.7) 11/10/24: Lymph # (Auto) 1.2 x10E3/uL (1.00-4.8) 11/10/24: [place] # (Auto) 0.6 x10E3/uL (0.0-0.8) 11/10/24: Eos # (Auto) 0.3 x10E3/uL (0.0-0.45) 11/10/24: Baso # (Auto) 0.0 x10E3/uL (0.0-0.2) 11/10/24: Monocyte Dist Width 18.48 % (0.00-20.00) 11/10/24 23: PHA Creatinine Clear 77.17 11/10/24 23: Sodium 133 mmol/L (136-145) L 11/10/24: Potassium 4.1 mmol/L (3.5-5.1) 06/29/25 23:30 Chloride 98 mmol/L (98-107) 11/10/24 23:30 Carbon Dioxide 28.0 mmol/L (21.0-31.0) 11/10/24 23:30 Anion Gap 11.1 mEq/L (6.0-15.0) 11/10/24 23:30 BUN 14 mg/dL (7-25) 11/10/24 23: Creatinine 0.80 mg/dL (0.70-1.30) 11/10/24 23:30 Est GFR (CKD-EPI) > 60.0 mL/Min 11/10/24 23:30 Glucose 100 mg/dL (70-100) 11/10/24 23: Calcium 9.8 mg/dL (8.6-10.3) 11/10/24 23: Magnesium 1.6 mg/dL (1.9-2.7) L 11/10/24 23:30 Total Bilirubin 0.6 mg/dl (0.3-1.0) 11/10/24 23: [...] (3.5-5.7) 11/10/24 23:30 Globulin 3.6 gm/dL 11/10/24 23: Albumin/Globulin Ratio 1.1 11/10/24 23:30 Urine Color Light-yellow (Yellow) 11/10/24 23:15 Urine Appearance Clear (Clear) 11/10/24 23:15 Urine pH 5.5 (5.0-9.0) 11/10/24 23:15 Ur Specific [place] 1.010 (1.001-1.030) 11/10/24 23:15 Urine Protein Negative [...] <Electronically signed by Silvano Reed DO> 11/11/24329 [facility] Work Phone: History and physical note Author Gabriela Nobles [facility] CenterNote Date/TimeOctober 2024 3:44[place] [address] Hospitalist H&P Signed Patient: Mary Mcadams MR#: [id number] : 1955 Acct:[id number] Age/Sex: 69 / M Adm Date: 5 Loc: Room: [address] [place] [address] Type: ADM IN Attending Dr: Gabriela Nobles MD Copies to: DO Gabriela Waller MD~ HPI DATE OF EXAMINATION: 02/16/25 CHIEF COMPLAINT: Shortness of breath HISTORY OF PRESENT ILLNESS: This is a 69-year-old male with past medical history of sarcoidosis with bronchiectasis who was recently admitted to [facility] on January 05 through January 09 due to dyspnea felt to be related to CHF with confirmed Takotsubo cardiomyopathy with apical ballooning. Other relevant past medical history is chronic hypoxic respiratory failure on 3 L nasal cannula, gout, shingles, COPD, bullous emphysema, BPH, A-fib, pulmonary sarcoidosis, carotid stenosis, chronic HFrEF, anemia, alcohol use, hypertension, acoustic neuroma, history of aspergilloma, GERD, diverticulosis, who presents today with worseningshortness of breath over the last few days. Patient states that he is usually short of breath with any sort of exertion, however he states that over the last few days his symptoms have gotten really worse. He denies any fever but states that he had some chills and a cough that was productive of whitish sputum. In the ED, patient was initially tachycardic and tachypneic as well as hypoxic, they had to initially placed him on on BiPAP however he improved to 3 L nasal cannula which is his baseline however patient failed I did test when he tried toambulate him in the ED. In the ED, CMP was unremarkable, his CBC did show hemoglobin of 11.5 otherwise his white blood cellcount and his physical were normal. His chest x-ray did not show any acute pathology. Atrial flutter diaphragm which is compatible withhis COPD and his chronic psychosis lesions. In the ED, patient received 1 dose of DuoNeb 3 mL, 1 dose of methylprednisolone 125 mg once as well as 1 dose of 1 L NS bolus continue to be admitted under hospitalist service for further workup and management Review of Systems Review of Systems All other systems reviewed & are negative unless noted below or in HPI [facility] Medical History H/O non-ST elevation myocardial infarction (NSTEMI) Takotsubo cardiomyopathy (~12/2024) History of sarcoidosis Acute on chronic hypoxic respiratory failure Non-ST elevation ID (NSTEMI) On home oxygen therapy Skin cancer removed [...] failure with reduced ejection fraction) Echo: LVEF 25% - 01/2015, Echo: LVEF 58% - 08/2015, Echo: LVEF 45-50%, normal RV size/function, mild aortic root dilatation 4.0 cm - 02/2024, Echo: LVEF 50% - 07/2024, Echo: LVEF 45-50%, LAE, LVH, normal RV size/function - 12/2024, Echo: apical balooning w/ LVEF 25-30% - 12/2024 Nonischemic cardiomyopathy MRI: cardiac sarcoidosis - 2015, LHC: normal coronary circulation - 2015, Hyponatremia Anemia Alcohol dependence Hypertension History of [...] Hx of CABG Social History Smoking Status: Unknown if ever smoked Tobacco Type: smokeless tobacco Substance Use Type: None Substance Abuse Comment: no alcohol past couple months; hx up to 4-6 beers daily Meds Medications and Allergies Allergies No Known Allergies Allergy (Verified 01/21/25 13:12) Home Medications finasteride 5 mg tablet 5 mg PO DAILY 09/08/23 [History Confirmed 02/16/25] latanoprost 0.005 % eye drops 1 drp Eye-Left HS 10/12/23 [History Confirmed 02/16/25] Oxygen 10/23/23 [History Confirmed 02/16/25] multivitamin with minerals 1 cap PO DAILY #90 caps 03/19/24 [Rx Confirmed 02/16/25] atorvastatin 40 mg tablet 40 mg PO QPM 30 days #30 tabs 03/20/24 [Rx Confirmed 02/16/25] metoprolol succinate 25 mg tablet,extended release 24 hr 25 mg PO DAILY 06/03/24[History Confirmed 02/16/25] pantoprazole 40 mg tablet,delayed release 40 mg PO DAILY.AC.BKFAST #0 tabs 07/09/24 [Rx Confirmed 02/16/25] tamsulosin 0.4 mg capsule See Rx Instructions .Route .COMPLEX #60 caps 08/11/24 [Rx Confirmed 02/16/25] dofetilide 250 mcg capsule 250 mcg PO Q12H 11/11/24 [History Confirmed 02/16/25] prednisolone acetate 1 % eye drops,suspension 1 drp Eye-Left QID Shingles 11/11/24 [History Confirmed 02/16/25] potassium chloride 10 mEq tablet,extended release (Klor-Con) 10 meq PO DAILY 30 days #30 tabs 11/19/24 [Rx Confirmed 02/16/25] ipratropium 0.5 mg-albuterol 3 mg (2.5 mg base)/3 mL nebulization soln 3 ml inhalation QID PRN shortness of breath 01/02/25 [History Confirmed 02/16/25] rivaroxaban 20 mg tablet (Xarelto) 20 mg PO QHS 01/02/25 [History Confirmed 02/16/25] valacyclovir 1 gram tablet 1,000 mg PO BID shingles in eye 01/02/25 [History Confirmed 02/16/25] ofloxacin 0.3 % eye drops 1 drp Eye-Left QID 01/05/25 [History Confirmed 02/16/25] aspirin 81 mg tablet,delayed release 81 mg PO DAILY 30 days #30 tabs 01/09/25 [Rx Confirmed 02/16/25] dapagliflozin propanediol 10 mg tablet 10 mg PO DAILY 30 days #30 tabs 01/09/25 [Rx Confirmed 02/16/25] magnesium oxide 400 mg (241.3 mg magnesium) tablet 400 mg PO DAILY 30 days #30 tabs 01/09/25 [Rx Confirmed 02/16/25] spironolactone 25 mg tablet 12.5 mg (1/2 x 25 mg) PO DAILY 30 days #15 tabs 01/09/25 [Rx Confirmed 02/16/25] furosemide 40 mg tablet 40 mg PO DAILY PRN edema 30 days #30 tabs 01/16/25 [Rx Confirmed 02/16/25] albuterol sulfate 90 mcg/actuation aerosol inhaler 1 puff inhalation Q6HR PRN shortness of breath or wheezing 01/21/25 [History Confirmed 02/16/25] Exam Physical Exam Vital Signs: Temp Pulse Resp BP Pulse Ox O2 Del Method O2 Flow Rate 97.6 F 87 22 117/71 100 Nasal Cannula 3 02/16/25 01:45 02/16/25 02:38 02/16/25 02:38 02/16/25 02:38 02/16/25 02:38 02/16/25 02:38 02/16/25 02:38 Narrative: Constitutional normal general appearance and alert, not in acute distress but ill-appearing. He was saturating well on 3 to 4 L nasal cannula HENMT HENMT: normocephalic, atraumatic, EOMI, PERRL Neck/C-Spine Neck/C-Spine: Supple, no JVD no Chest Chest: Yes normal inspection of the chest Respiratory Respiratory: Decreased bilateral air entry with expiratory wheezes, does have expiratory rhonchi aswell. Saturating well on 3 to nasal cannula. He failed his oxygen walk test became very dyspneic and in distress Cardiovascular regular rate and regular rhythm, normal S1-S2, no murmur Gastrointestinal abdomen normal to inspection, no signs of acute abdomen, no organomegaly Extremities No lower extremity edema noted, intact peripheral pulses bilateral Results - Hospitalist H&P Lab Results Labs: Laboratory Last Values Corrected WBC 6.3 X10E3/uL (4.1-10.5) 02/15/25 21:18 Uncorrected WBC Count 6.3 x10E3/uL (4.1-10.5) 02/15/25 21:18 RBC 3.87 x10E6/uL (3.90-5.60) L 02/15/25 21:18 Hgb 11.5 g/dL (13.0-17.0) L 02/15/25 21:18 Hct 34.3 % (38.8-50.0) L 02/15/25 21:18 MCV 88.7 fl (83.5-101) 02/15/25 21:18 MCH 29.8 pg (27.5-35.2) 02/15/25 21:18 MCHC 33.5 g/dL (32.5-35.6) 02/15/25 21:18 RDW 20.9 % (12.0-14.8) H 02/15/25 21:18 Plt Count 376 x10E3/uL (150-450) 02/15/25 21:18 MPV 7.5 fl (6.6-10.1) 02/15/25 21:18 Neut % (Auto) 67.2 % (.) 02/15/25 21:18 Lymph % (Auto) 18.5 % (.) 02/15/25 21:18 [place] % (Auto) 10.6 % (.) 02/15/25 21:18 Eos % (Auto) 2.7 % (.) 02/15/25 21:18 Baso % (Auto) 1.0 % (.) 02/15/25 21:18 Nucleat RBC Rel Count 0.0 /100 WBC (0-0.5) 02/15/25 21:18 Neut # (Auto) 4.3 x10E3/uL (1.8-7.7) 02/15/25 21:18 Lymph # (Auto) 1.2 x10E3/uL (1.00-4.8) 02/15/25 21:18 [place] # (Auto) 0.7 x10E3/uL (0.0-0.8) 02/15/25 21:18 Eos # (Auto) 0.2 x10E3/uL (0.0-0.45) 02/15/25 21:18 Baso # (Auto) 0.1 x10E3/uL (0.0-0.2) 02/15/25 21:18 Monocyte Dist Width 20.43 % (0.00-20.00) H 02/15/25 21:18 PT 22.6 Seconds (9.0-12.9) H 02/15/25 21:18 INR 2.0 02/15/25 21:18 PHA Creatinine Clear 50.57 02/15/25 21:18 Sodium 136 mmol/L (136-145) 02/15/25 21:18 Potassium 3.9 mmol/L (3.5-5.1) 02/15/25 21:18 Chloride 101 mmol/L (98-107) 02/15/25 21:18 Carbon Dioxide 27.4 mmol/L (21.0-31.0) 02/15/25 21:18 Anion Gap 11.5 mEq/L (6.0-15.0) 02/15/25 21:18 BUN 17 mg/dL (7-25) 02/15/25 21:18 Creatinine 1.14 mg/dL (0.70-1.30) 02/15/25 21:18 Est GFR (CKD-EPI) > 60.0 mL/Min 02/15/25 21:18 Glucose 99 mg/dL (70-100) 02/15/25 21:18 Calcium 9.5 mg/dL (8.6-10.3) 02/15/25 21:18 Total Bilirubin 0.5 mg/dl (0.3-1.0) 02/15/25 21:18 AST 25 U/L (13-39) 02/15/25 21:18 ALT 11 U/L (7-52) 02/15/25 21:18 Alkaline Phosphatase 146 U/L (34-104) H 02/15/25 21:18 Troponin I High Sens 7 ng/L (0-20) 02/15/25 21:18 B-Natriuretic Peptide 57.0 pg/mL (5-100) 02/15/25 21:18 Total Protein 7.1 gm/dL (6.4-8.9) 02/15/25 21:18 Albumin 3.8 gm/dL (3.5-5.7) 02/15/25 21:18 Globulin 3.3 gm/dL 02/15/25 21:18 Albumin/Globulin Ratio 1.2 02/15/25 21:18 SARS-CoV-2 Rap RNA(RT-PCR) Negative (Negative) 02/15/25 21:50 Microbiology Results Micro: Microbiology - Results from entire visit 02/15/25 21:50 Nasopharyngeal SARS-CoV-2, Influenza & RSV (PCR) - Final Assessment & Plan Assessment/Plan (1) Hx of sarcoidosis: (2) COPD exacerbation: (3) Acute on chronic hypoxic respiratory failure: Plan Acute on chronic hypoxic respiratory failure in the setting of COPD exacerbationand possible sarcoidosis flareup Cannot rule out commune acquired pneumonia CHF exacerbation is less likely Frailty and cachexia of pulmonary disease - Admit patient to medical floor telemetry - Start patient on IV Solu-Medrol 40 mg every 12 hours - Start doxycycline 100 mg mg IV twice daily -Start IV ceftriaxone 1 g every 24 hours -Obtain sputum culture - Start DuoNeb 4 times daily -Start Symbicort BID - Pulm consult given the patient's complicated history with sarcoidosis -PT/OT eval -Will need walk study on discharge -I reconciled pt's medications -Pt is on xarelto which I will continue for DVT PPx -Full code, discussed goals of care with the pt. Will update that in the chart IP vs OBS Justification Based on differential dx, clinical care plan, and risk of adverse events, if untreated, in my clinical judgement this patient requires an acute care setting as: INPATIENT because of an expectation ofan over 2 midnight stay. Estimated length of stay (# of days): 3 Documented By: Gabriela Nobles MD 02/16/25 0331 Signed By: <Electronically signed by Gabriela Nobles MD> 02/16/25 0344 [facility] Work Phone: History general Narrative - Reported* Type Description Date Medical History sarcoidosis Medical HistoryLung diseaseMedical HistoryCOPDSurgical Historymediastinoscopy Hospitalization Historywhen on coumadin he was bleeding outHospitalization HistoryBreathing Problems [facility] [employer] Other History general Narrative - Reported* Type Description Date Medical History sarcoidosis Medical HistoryLung diseaseMedical HistoryCOPDSurgical Historymediastinoscopy Surgical HistoryCOLONOSCOPYSurgical HistoryEGDHospitalization Historywhen on coumadin he was bleeding outHospitalization HistoryBreathing Problems [facility] [employer] Other History of Present illness NarrativePatient returns [...] changes in medical therapy and follow-up next year.-[facility] 250 DO Work Phone: Hospital course Narrative No data available for this section [facility] Hospital Discharge instructions No data available for this section [facility] InstructionsNot on filedocumented in this encounter [facility]Not on filedocumented in this encounter [facility] SystemInstructionsNot on filedocumented in this encounter [facility] SystemProgress note No data available for this section [facility] reason for referral (narrative)* Consultation (Routine) - AuthorizedSpecialtyDiagnoses / ProceduresReferred By ContactReferred To ContactCardiology Diagnoses Non-ischemic cardiomyopathy (Multi) Procedures Follow Up In Cardiology Steven Alvares MD [address] [place] [address] 2, [address] [address] Shannon Gonzalez MD [address] [place] [address] 2, [address] [address] Referral IDStatusReasonSthardyville DateExpiration DateVisits RequestedVisits [id number] [facility] Work Phone: Reason for referral (narrative)No reason for referral information availableMagruder Hospital Work Phone: Reason for visit Narrative* Cardiac Stress Testing (Routine) - AuthorizedSpecialtyDiagnoses / ProceduresReferred By Contact Referred To ContactRadiology Diagnoses Fatigue, unspecified type Non-ischemic cardiomyopathy (Multi) Diastolic dysfunction LV (left ventricular) mural thrombus 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 (Multi) Procedures Nuclear Stress Test CHG MYOCARDIAL SPECT MULTIPLE STUDIES Shannon Gonzalez MD [address] [place] [address] 2, [address] [address] Phone: tel: fax: Referral IDStatusReasonSthardyville DateExpiration DateVisits RequestedVisits [id number] [facility] Work Phone: reason for visit Narrative* Cardiac Stress Testing (Routine) - AuthorizedSpecialtyDiagnoses / ProceduresReferred By Contact Referred To ContactRadiology Diagnoses Fatigue, unspecified type Non-ischemic cardiomyopathy (Multi) Diastolic dysfunction LV (left ventricular) mural thrombus 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 (Multi) Procedures Nuclear Stress Test CHG MYOCARDIAL SPECT MULTIPLE STUDIES Shannon Gonzalez MD [address] [facility] 2, [address] [address] Phone: tel: fax: Referral IDStatusReasonStart DateExpiration DateVisits RequestedVisits [id number] [facility] Work Phone: reason for visit Narrative* CV Imaging (Routine) - AuthorizedSpecialtyDiagnoses / ProceduresReferred By ContactReferred To ContactCardiology Diagnoses Diastolic dysfunction Non-ischemic cardiomyopathy (Multi) LV (left ventricular) mural thrombus Procedures Transthoracic Echo Complete ME ECHO TTHRC R-T 2D W/WOM-MODE COMPL SPEC&COLR D Shannon Gonzalez MD [address] [facility] 2, [address] [address] Phone: tel: fax: Referral IDStatusReasonStart DateExpiration DateVisits RequestedVisits [id number] Perform Procedure [facility] Work Phone: reason for visit Narrative* Imaging (Routine) - AuthorizedSpecialtyDiagnoses / ProceduresReferred By ContactReferred To ContactRadiology Diagnoses Cardiac sarcoidosis Procedures MR cardiac morphology and function w and wo IV contrast Ning Godoy, [employer] ENG[employer] [address] [facility] [address] [address] Phone: tel: fax: Referral IDStatusReasonStart DateExpiration DateVisits RequestedVisits [id number] Perform Procedure [facility] Work Phone: Summary Purpose Family History No Family History Records FoundUnknown Family Member Name Dates Details S/P CABG (coronary artery by pass graft): Mother(V45.81, Z95.1) Status:ActiveFamily history of diabetes mellitus: Mother(V18.0, Z83.3) Status:ActiveFamily history of valvular heart disease: Brother(V17.49, Z82.49) Status:ActiveNo pertinent family history: Father(V49.89, Z78.9) Status:ActivePresence of stent in coronary artery: Mother(V45.82, Z95.5) Status:ActiveFamily history of multiple sclerosis: Other(V17.2, Z82.0) Status:ActiveFamily history of arthritis: Other(V17.7, Z82.61) Status:ActiveDiabetes mellitus of other type with hypoglycemia, without long- term current use of insulin: Other Status:ActiveHeart problem: Other Status:Active Unknown Family Member Name Dates Details Heart problem: Other Status:ActiveDiabetes mellitus of other type with hypoglycemia, without long- term current use of insulin: Other Status:ActiveFamily history of arthritis: Other(V17.7, Z82.61) Status:ActiveFamily history of multiple sclerosis: Other(V17.2, Z82.0) Status:ActiveS/P CABG (coronary artery bypass graft): Mother(V45.81, Z95.1) Status:ActiveFamily history of diabetes mellitus: Mother(V18.0, Z83.3) Status:ActiveFamily history of valvular heart disease: Brother(V17.49, Z82.49) Status:ActiveNo pertinent family history: Father(V49.89, Z78.9) Status:ActivePresence of stent in coronary artery: Mother(V45.82, Z95.5) Status:Active Unknown Family Member Name Dates Details Heart problem: Other Status:ActiveDiabetes mellitus of other type with hypoglycemia, without long- term current use of insulin: Other Status:ActiveFamily history of arthritis: Other(V17.7, Z82.61) Status:ActiveFamily history of multiple sclerosis: Other(V17.2, Z82.0) Status:ActiveS/P CABG (coronary artery bypass graft): Mother(V45.81, Z95.1) Status:ActiveFamily history of diabetes mellitus: Mother(V18.0, Z83.3) Status:ActiveFamily history of valvular heart disease: Brother(V17.49, Z82.49) Status:ActiveNo pertinent family history: Father(V49.89, Z78.9) Status:ActivePresence of stent in coronary artery: Mother(V45.82, Z95.5) Status:Active Unknown Family Member Name Dates Details Heart problem: Other Status:ActiveDiabetes mellitus of other type with hypoglycemia, without long- term current use of insulin: Other Status:ActiveFamily history of arthritis: Other(V17.7, Z82.61) Status:ActiveFamily history of multiple sclerosis: Other(V17.2, Z82.0) Status:ActiveS/P CABG (coronary artery bypass graft): Mother(V45.81, Z95.1) Status:ActiveFamily history of diabetes mellitus: Mother(V18.0, Z83.3) Status:ActiveFamily history of valvular heart disease: Brother(V17.49, Z82.49) Status:ActiveNo pertinent family history: Father(V49.89, Z78.9) Status:ActivePresence of stent in coronary artery: Mother(V45.82, Z95.5) Status:Active Relationship Condition Age at Onset Recorded Date/T dulce Not Specified Heart disease Unknown Unknown Family Member Name Dates Details Heart problem: Other Status:ActiveDiabetes mellitus of other type with hypoglycemia, without long- term current use of insulin: Other Status:ActiveFamily history of arthritis: Other(V17.7, Z82.61) Status:ActiveFamily history of multiple sclerosis: Other(V17.2, Z82.0) Status:ActiveS/P CABG (coronary artery bypass graft): Mother(V45.81, Z95.1) Status:ActiveFamily history of diabetes mellitus: Mother(V18.0, Z83.3) Status:ActiveFamily history of valvular heart disease: Brother(V17.49, Z82.49) Status:ActiveNo pertinent family history: Father(V49.89, Z78.9) Status:ActivePresence of stent in coronary artery: Mother(V45.82, Z95.5) Status:Active Unknown Family Member Name Dates Details Heart problem: Other Status:ActiveDiabetes mellitus of other type with hypoglycemia, without long- term current use of insulin: Other Status:ActiveFamily history of arthritis: Other(V17.7, Z82.61) Status:ActiveFamily history of multiple sclerosis: Other(V17.2, Z82.0) Status:ActiveS/P CABG (coronary artery bypass graft): Mother(V45.81, Z95.1) Status:ActiveFamily history of diabetes mellitus: Mother(V18.0, Z83.3) Status:ActiveFamily history of valvular heart disease: Brother(V17.49, Z82.49) Status:ActiveNo pertinent family history: Father(V49.89, Z78.9) Status:ActivePresence of stent in coronary artery: Mother(V45.82, Z95.5) Status:Active Unknown Family Member Name Dates Details Heart problem: Other Status:ActiveDiabetes mellitus of other type with hypoglycemia, without long- term current use of insulin: Other Status:ActiveFamily history of arthritis: Other(V17.7, Z82.61) Status:ActiveFamily history of multiple sclerosis: Other(V17.2, Z82.0) Status:ActiveS/P CABG (coronary artery bypass graft): Mother(V45.81, Z95.1) Status:ActiveFamily history of diabetes mellitus: Mother(V18.0, Z83.3) Status:ActiveFamily history of valvular heart disease: Brother(V17.49, Z82.49) Status:ActiveNo pertinent family history: Father(V49.89, Z78.9) Status:ActivePresence of stent in coronary artery: Mother(V45.82, Z95.5) Status:Active Unknown Family Member Name Dates Details Heart problem: Other Status:ActiveDiabetes mellitus of other type with hypoglycemia, without long- term current use of insulin: Other Status:ActiveFamily history of arthritis: Other(V17.7, Z82.61) Status:ActiveFamily history of multiple sclerosis: Other(V17.2, Z82.0) Status:ActiveS/P CABG (coronary artery bypass graft): Mother(V45.81, Z95.1) Status:ActiveFamily history of diabetes mellitus: Mother(V18.0, Z83.3) Status:ActiveFamily history of valvular heart disease: Brother(V17.49, Z82.49) Status:ActiveNo pertinent family history: Father(V49.89, Z78.9) Status:ActivePresence of stent in coronary artery: Mother(V45.82, Z95.5) Status:Active Relationship Condition Age at Onset Recorded Date/T dulce brother Heart disease Unknown fatherMalignant neoplasmUnknownDeceasedUnknownmotherDeceasedUnknownHeart disease Unknown Relationship Condition Age at Onset Recorded Date/T dulce brother Heart disease Unknown fatherMalignant neoplasmUnknownDeceasedUnknownmotherDeceasedUnknownHeart disease UnknownMyocardial infarctionUnknownDiabetes mellitusUnknown Relationship Condition Age at Onset Recorded Date/T dulce brother Heart disease Unknown Multiple sclerosisUnknownfatherDeceasedUnknownMalignant neoplasmUnknownmother Diabetes mellitusUnknownHeart diseaseUnknownMyocardial infarctionUnknownDeceased UnknownHistory of coronary artery bypass surgeryUnknown Relationship Condition Age at Onset Recorded Date/T dulce brother Multiple sclerosis Unknown fatherDeceasedUnknownMalignant neoplasmUnknownmotherDiabetes mellitusUnknown Heart diseaseUnknownMyocardial infarctionUnknownDeceasedUnknownHistory of coronary artery bypass surgeryUnknown Advance Directives No Advanced Directives Records Found [...] of Colon Polyps Anemia, Hx of Colon PolypsReason for VisitAnemia Personal history of colonic polyps Chief Complaint [...] CHF Exacerbation Amb Documentation Amb Documentation Hosp f/uReason for VisitAcoustic neuroma Anticoagulated Benign prostatic hyperplasia with lower [...] Documentation Amb Documentation Hosp f/u has Afib, SOBReason for VisitAcoustic neuroma Anticoagulated Benign prostatic hyperplasia with lower [...] f/u has Afib, SOB Amb Documentation Amb DocumentationReason for VisitAcoustic neuroma Anticoagulated Benign prostatic hyperplasia with lower [...] Documentation Amb Documentation CC Adult Risk Stratification [facility]:CHF-HIGH RISKReason for VisitAcoustic neuroma Anticoagulated Benign prostatic hyperplasia with lower [...] Documentation Amb Documentation CC Adult Risk Stratification [facility]:CHF-HIGH RISK Encephalopathy Encephalopathy Encephalopathy EncephalopathyReason for VisitAcoustic neuroma Anticoagulated Benign prostatic hyperplasia with lower [...] :02pm CC Adult Risk Stratification February 11:10am [facility]:CHF-HIGH RISK March 08, 2024 1 :23pm Encephalopathy [...] Date CC Adult Risk Stratification February 11:10am [facility]:CHF-HIGH RISK March 08, 2024 1 :23pm Encephalopathy [...] Amb Documentation November 12, 2024 8:50a m [facility] f/u-HIGH RISK November 19, 2024 11:39 am [...] Amb Documentation November 12, 2024 8:50a m [facility] f/u-HIGH RISK November 19, 2024 11:39 am [...] Amb Documentation November 12, 2024 8:50a m [facility] f/u-HIGH RISK November 19, 2024 11:39 am [...] sarcoidosis January 05, 2025 1:53am Non-ST elevation ID (NSTEMI) December 1:53am Reason for Visit Admit [...] sarcoidosis January 05, 2025 1:53am Non-ST elevation ID (NSTEMI) December 1:53am Takotsubo cardiomyopathy January 05 1:53am Chief Complaint Admit Date dif breathing November 11, 2024 3:15 am Amb Documentation November 12, 2024 8:50a m [facility] f/u-HIGH RISK November 19, 2024 11:39 am cataract January 02, 2025 3: 23pm Shortness of Breath January 05, 2025 1: 53am Amb Documentation January 10, 2025 7: 40am [facility]: 6 mo f/u Sarcoidosis January 21, 2025 [...] sarcoidosis January 05, 2025 1:53am Non-ST elevation ID (NSTEMI) December 1:53am Bronchiectasis, uncomplicated January 21, 2025 1:09pm Bullous emphysema January 21, 2025 1:09pm Cardiac sarcoidosis January 21, 2025 1:09pm Chronic respiratory failure with hypoxia January 21, 2025 1:09pm History of aspergilloma January 21, 2 025 1:09pm Pulmonary sarcoidosis January 21 1:09pm Chief Complaint Admit Date [facility] f/u-HIGH RISK November 19, 2024 11:39 am cataract January 02, 2025 3: 23pm Shortness of Breath January 05, 2025 1: 53am Amb Documentation January 10, 2025 7: 40am [facility]: 6 mo f/u Sarcoidosis January 21, 2025 1:09pm Shortness of Breath February 16, 2025 2: 24am Reason for Visit Admit Date Anemia November 19, 2024 11:39 am Atrial [...] sarcoidosis January 05, 2025 1:53am Non-ST elevation ID (NSTEMI) December 1:53am Bronchiectasis, uncomplicated January 21, 2025 1:09pm Bullous emphysema January 21, 2025 1:09pm Cardiac sarcoidosis January 21, 2025 1:09pm Chronic respiratory failure with hypoxia January 21, 2025 1:09pm History of aspergilloma January 21, 2 025 1:09pm Pulmonary sarcoidosis January 21 1:09pm Acute on chronic hypoxic respiratory erika lure February 16, 2025 2:24am COPD exacerbation February 16, 2025 2: 24am Hx of sarcoidosis February 16, 2025 2: 24am Myalgia February 16, 2025 2: 24am Chief Complaint Admit Date cataract January 02, 2025 3: 23pm Shortness of Breath January 05, 2025 1: 53am Amb Documentation January 10, 2025 7: 40am [facility]: 6 mo f/u Sarcoidosis January 21, 2025 1:09pm Shortness of Breath February 16, 2025 2: 24am Amb Documentation February 19, 2025 2: 40pm Reason for Visit Admit Date Takotsubo cardiomyopathy January 05 1:53am Acute on chronic hypoxic respiratory erika lure January 05, 2025 1:53am History of sarcoidosis January 05, 2025 1:53am Non-ST elevation ID (NSTEMI) December 1:53am Bronchiectasis, uncomplicated January 21, 2025 1:09pm Bullous emphysema January 21, 2025 1:09pm Cardiac sarcoidosis January 21, 2025 1:09pm Chronic respiratory failure with hypoxia January 21, 2025 1:09pm History of aspergilloma January 21, 025 1:09pm Pulmonary sarcoidosis January 21 1:09pm [...] 24am Pulmonary sarcoidosis February 16, 2025 2:24am Chief Complaint Admit Date cataract January 02, 2025 3: 23pm Shortness of Breath January 05, 2025 1: 53am Amb Documentation January 10, 2025 7: 40am [facility]: 6 mo f/u Sarcoidosis January 21, 2025 1:09pm Shortness of Breath February 16, 2025 2: 24am Amb Documentation February 19, 2025 2: 40pm Cataract March 13, 2025 9 :43am Reason for Visit Admit Date Takotsubo cardiomyopathy January 05 1:53am Acute on chronic hypoxic respiratory erika lure January 05, 2025 1:53am History of sarcoidosis January 05, 2025 1:53am Non-ST elevation ID (NSTEMI) December 1:53am Bullous emphysema January 21, 2025 1:09pm Chronic respiratory failure with hypoxia January 21, 2025 1:09pm Bronchiectasis, uncomplicated January 21, 2025 1:09pm Cardiac sarcoidosis January 21, 2025 1:09pm History of aspergilloma January 21, 025 1:09pm Pulmonary sarcoidosis January 21 1:09pm [...] 24am Pulmonary sarcoidosis February 16, 2025 2:24am Additional Source Comments (unrecognized sect ion and content) No Status Records FoundNo Status Records FoundNo Status Records FoundNo Status Records FoundNo Status Records FoundNo Status Records FoundNo Status Records FoundNo Status Records Found INFORMATION SOURCE (unrecogn ized section and content) DATE CREATED AUTHOR 12/30/2018 [facility] DATE CREATED AUTHOR AUTHOR'S ORGANIZ ATION 04/30/2021 [facility] DATE CREATED AUTHOR AUTHOR'S ORGANIZ ATION 09/09/2022 [facility] DATE CREATED AUTHOR AUTHOR'S ORGANIZ ATION 01/25/2025 [facility] DATE CREATED AUTHOR AUTHOR'S ORGANIZ ATION 02/01/2025 [facility] DATE CREATED AUTHOR AUTHOR'S ORGANIZ ATION 03/04/2025 [facility] DATE CREATED AUTHOR AUTHOR'S ORGANIZ ATION 03/05/2025 [facility] DATE CREATED AUTHOR AUTHOR'S ORGANIZ ATION 03/14/2025 [facility] Care Teams (unrecognized sec tion and content) Team Status: Active Member Role Status Dates Adam Del Valle DO Primary Care Provider Active Team Status: Inactive Member Role Status Dates Adam Del Valle DO Primary Care Provider Active Start: May 01, 2024 End: May 01, 2024Jose Storey ProviderActiveStart: May 01, 2024 End: May 01, 2024 [...] Active Start: July 03, 2024 End: July 09Nabil Bravo ProviderActiveStart: July 03, 2024 End: July 09clifford Jones MDAdmit Provider, Attending Provider ActiveStart: July 03, 2024 End: July 09, 2024Paty Salgado ProviderActiveStart: July 03, 2024 End: July 09, 2024 Team Status: Active Member Role Status Dates Adam Del Valle DO Primary Care Provider Active Start: July 06, 2024 Nabil Urias ProviderActiveStart: July 06, 2024 Altaf Jones MDAdmankur ProviderActiveStart: July 06, 2024 Paty Faust ProviderActiveStart: July 06, 2024 Paty Salgado ProviderActiveStart: July 06, 2024 Andres Herrera MDAttending ProviderActiveStart: July 06, 2024 Team Status: Active Member Role Status Dates Adam Del Valle DO Primary Care Provide r, Attending Provider Active Start: February 01, 2024 Team Status: Inactive Member Role Status Dates Adam Del Valle DO Primary Care Provider Active Start: February 02, 2024 End: February 04, 2024Tim Sheehan Provider, Attending ProviderActiveStart: February 02, 2024 End: February 04, 2024Barber Mosquera ProviderActiveStart: February 02, 2024 End: February 04, 2024David Marino ProviderActiveStart: February 02, 2024 End: February 04, 2024Paty Salgado ProviderActiveStart: February 02, 2024 End: February 04, 2024Wijordyn Alvares MDOther ProviderActiveStart: February 02, 2024 End: February 04, 2024Chacho Burroughs MDOther ProviderActiveStart: February 02, 2024 End: February 03Paty Durand ProviderActiveStart: February 02, 2024 End: February 03Tommy Berriosher ProviderActiveStart: February 02, 2024 End: February 04, 2024Cheli Wood MDOther ProviderActiveStart: February 02, 2024 End: February 04, 2024Mowill Gonzalez MDOther ProviderActiveStart: February 02, 2024 End: February 04, 2024Tagemma Wolfe MDOther ProviderActiveStart: February 02, 2024 End: February 03MILAN MillsP-BCOther ProviderActiveStart: February 02, 2024 End: February 04, 2024 Team Status: Inactive Member Role Status Dates Adam Del Valle DO Primary Care Provider Active Gregg Hilliard DOAttending ProviderActiveTeam MemberRelationshipSpecialtyStart DateEnd Date Adam Del Valle DO [address] [place] [address] PCP - GeneralInternal Medicine10/13/23 Team Status: Active Member Role Status Dates Adam Del Valle DO Primary Care Provider Active Start: February 05, 2024 Den Arambula ProviderActiveStart: February 05, 2024 Team Status: Active Member Role Status Dates Adam Del Valle DO Primary Care Provider Active Start: February 12, 2024 Margie Zacarias ProviderActiveStart: February 12, 2024 Team Status: Inactive Member Role Status Dates Adam Del Valle DO Primary Care Provide r, Attending Provider Active Start: February 14, 2024 End: February 14, 2024Team MemberRelationshipSpecialtyStart DateEnd Date Adam Del Valle DO [address] [place] [address] [facility] Team Status: Active Member Role Status Dates Adam Del Valle DO Primary Care Provide r, Attending Provider Active Start: February 02, 2024 Team Status: Active Member Role Status Dates Adam Del Valle DO Primary Care Provider Active Start: February 28, 2024 Sin Mabry , DODaniellarrodrigo ProviderActiveStart: February 28, 2024 Silvano Reed DOAdmit Provider, Attending ProviderActiveStart: February 28, 2024 Team Status: Inactive Member Role Status Dates Adam Del Valle DO Primary Care Provider Active Start: February 28, 2024 End: March 01, 2024Sin aMbry DOEmergendemetris ProviderActiveStart: February 28, 2024 End: March 01, 2024Silvano Reed DOAdmit ProviderActiveStart: February 28, 2024 End: March 01ndclifford Jones MDAttending ProviderActiveStart: February 28, 2024 End: March 01, 2024 Team Status: Active Member Role Status Dates Adam Del Valle DO Primary Care Provider Active Start: February 29, 2024 Juliette Davis CMAAttending ProviderActiveStart: February 29, 2024 Team Status: Active Member Role Status Siobhan Del Valle DO Primary Care Provider Active Start: March 01, 2024 Juliette Davis CMAAttending ProviderActiveStart: March 01, 2024 Team Status: Active Member [...] Provider Active Start: March 13, 2024 [facility] ProviderActiveStart: March 13, 2024 Team Status: Inactive Member Role Status Siobhan Del Valle DO Primary Care Provider Active Start: March 13, 2024 End: March 20, 2024Gabriela Nobles MDAdmankur ProviderActiveStart: March 13, 2024 End: March 20ndYvette Maxwellending ProviderActiveStart: March 13, 2024 End: March 20, 2024Elvira Salgadoerrgabriel ProviderActiveStart: March 13, 2024 End: March 20marissa Stover DOOther ProviderActiveStart: March 13, 2024 End: March 20, 2024Paty Espinosa ProviderActiveStart: March 13, 2024 End: March 20, 2024Hasmukh Mace MDOther ProviderActiveStart: March 13, 2024 End: March 20, 2024Nathaliea Bossman , APRNOther ProviderActiveStart: March 13, 2024 End: March 20enedict L Franklin Schaffer, DOOther ProviderActiveStart: March 13, 2024 End: March 20briana Jo MDOther ProviderActiveStart: March 13, 2024 End: March 20, 2024Baudilio Moura MDOther ProviderActiveStart: March 13, 2024 End: March 20, 2024 Team Status: Active Member Role Status Dates Adam Del Valle DO Primary Care Provider Active Start: March 14, 2024 Theron Qureshi ProviderActiveStart: March 14, 2024 Altaf Jones MDOther ProviderActiveStart: March 14, 2024 Eriberto Stover DOOther ProviderActiveStart: March 14, 2024 Ijeoma Alvares MDOther ProviderActiveStart: March 14, 2024 Hasmukh Mace MDOther ProviderActiveStart: March 14, 2024 Nuvia Keita , APRNOther ProviderActiveStart: March 14, 2024 Killeen L Franklin Schaffer, DOOther ProviderActiveStart: March 14, 2024 Gutierrez Jo MDOther ProviderActiveStart: March 14, 2024 Baudilio Moura MDOther ProviderActiveStart: March 14, 2024 Ramonita Tang RNOther ProviderActiveStart: March 14, 2024 Judith Rodriguez DOOther ProviderActiveStart: March 14, 2024 Shannon Gonzalez MDOther ProviderActiveStart: March 14, 2024 Steven Alvares MDOther ProviderActiveStart: March 14, 2024 Chacho Burroughs MDOther ProviderActiveStart: March 14, 2024 Casey Harper MDOther ProviderActiveStart: March 14, 2024 Ning Godoy , APRNOther ProviderActiveStart: March 14, 2024 Cheli Wood MDOther ProviderActiveStart: March 14, 2024 Damien Gonzalez MDOther ProviderActiveStart: March 14, 2024 Kimani Wolfe MDOther ProviderActiveStart: March 14, 2024 Karina Morocho , PLUNGER SHOVEL OPERATOR-BCOther ProviderActiveStart: March 14, 2024 Lula Muniz , PHOTOFLASH POWDER MIXER-CAttending ProviderActiveStart: March 14, 2024 Team Status: Active Member Role Status Dates Adam Del Valle DO Primary Care Provider Active Start: March 15, 2024 Gabriela Nobles MDAdmit ProviderActiveStart: March 15, 2024 Altaf Jones MDOther ProviderActiveStart: March 15, 2024 Eriberto Stover DOOther ProviderActiveStart: March 15, 2024 Ijeoma Alvares MDOther ProviderActiveStart: March 15, 2024 Hasmukh Mace MDOther ProviderActiveStart: March 15, 2024 Nuvia Keita , APRNOther ProviderActiveStart: March 15, 2024 Freddie Reid Jr, DOOther ProviderActiveStart: March 15, 2024 Gutierrez Jo MDAttending Provider, Other ProviderActiveStart: March 15, 2024 Baudilio Moura MDOther ProviderActiveStart: March 15, 2024 Ramonita Tang RNOther ProviderActiveStart: March 15, 2024 Judith Rodriguez DOOther ProviderActiveStart: March 15, 2024 Shannon Gonzalez MDOther ProviderActiveStart: March 15, 2024 Steven Alvares MDOther ProviderActiveStart: March 15, 2024 Chacho Burroughs MDOther ProviderActiveStart: March 15, 2024 Casey Harper MDOther ProviderActiveStart: March 15, 2024 Ning Godoy APRNOther ProviderActiveStart: March 15, 2024 Cheli Wood MDOther ProviderActiveStart: March 15, 2024 Paty Doe ProviderActiveStart: March 15, 2024 Paty Manzanares ProviderActiveStart: March 15, 2024 Karina Morocho , PLUNGER SHOVEL OPERATOR-BCOther ProviderActiveStart: March 15, 2024 Team Status: Active Member Role Status Dates Adam Del Valle DO Primary Care Provider Active Start: March 16, 2024 Gabriela Nobles MDAdmit ProviderActiveStart: March 16, 2024 Altaf Jones MDOther ProviderActiveStart: March 16, 2024 Ramonita Tang RNOther ProviderActiveStart: March 16, 2024 Judith Rodriguez DOOther ProviderActiveStart: March 16, 2024 Shannon Gonzalez MDOther ProviderActiveStart: March 16, 2024 Steven Alvares MDOther ProviderActiveStart: March 16, 2024 Chacho Burroughs MDOther ProviderActiveStart: March 16, 2024 Casey Harper MDOther ProviderActiveStart: March 16, 2024 Ning Godoy , APRNOther ProviderActiveStart: March 16, 2024 Cheli Wood MDOther ProviderActiveStart: March 16, 2024 Damien Gonzalez MDOther ProviderActiveStart: March 16, 2024 Kimani Wolfe MDOther ProviderActiveStart: March 16, 2024 Karina Morocho , [facility]-BCOther ProviderActiveStart: March 16, 2024 Eriberto Stover , DOOther ProviderActiveStart: March 16, 2024 Ijeoma Alvares MDOther ProviderActiveStart: March 16, 2024 Hasmukh Mace MDOther ProviderActiveStart: March 16, 2024 Nuvia Keita APRNOther ProviderActiveStart: March 16, 2024 Freddie Reid Jr DOOther ProviderActiveStart: March 16, 2024 Gutierrez Jo MDOther ProviderActiveStart: March 16, 2024 Baudilio Moura MDOther ProviderActiveStart: March 16, 2024 Andres Phuc Koromia , MDAttending ProviderActiveStart: March 16, 2024 Team MemberRelationshipSpecialtyStart DateEnd Date Adam Del Valle, DO [address] [place] [address] PCP - [facility]10/13/23 Team Status: Active Member Role Status Dates Adam Del Valle DO Primary Care Provide r, Attending Provider Active Start: March 13, 2024 Team Status: Active Member Role Status Dates Adam Del Valle DO Primary Care Provider Active Start: March 21, 2024 Juliette Lewis , CMAAttending ProviderActiveStart: March 21, 2024 Team Status: Inactive Member Role Status Dates Adam Del Valle DO Primary Care Provide r, Attending Provider Active Start: March 25, 2024 End: March 25, 2024 Team Status: Inactive Member Role Status Dates Adam Del Valle DO Primary Care Provide r, Attending Provider Active Start: March 26, 2024 End: March 26, 2024Team MemberRelationshipSpecialtyStart DateEnd Date Adam Del Valle, DO [address] [place] [address] PCP - [facility]10/13/23 Team Status: Active Member Role Status Dates Adam Del Valle DO Primary Care Provide r, Attending Provider Active Start: April 09, 2024 Team MemberRelationshipSpecialtyStart DateEnd Date Adam Del Valle DO [address] [place] [address] PCP - [facility]10/13/23Team MemberRelationshipSpecialtyStart Date End Date Adam Del Valle DO [address] [place] [address] PCP - [facility]10/13/23Team MemberRelationshipSpecialtyStart Date End Date Adam Del Valle, DO [address] [place] [address] PCP - [facility]10/13/23Team MemberRelationshipSpecialtyStart Date End Date Adam Del Valle DO [address] [place] [address] PCP - [facility]10/13/23 Team Status: Active Member Role Status Dates Adam Del Valle DO Primary Care Provider Active Start: July 03, 2024 Nabil Urias ProviderActiveStart: July 03, 2024 Theron Carballo Provider, Attending ProviderActiveStart: July 03, 2024 Team Status: Inactive Member Role Status Dates Adam Del Valle DO Primary Care Provider Active Start: July 15, 2024 End: July 15, 2024Issa Marx DOAttending ProviderActiveStart: July 15, 2024 End: July 15, 2024Team MemberRelationshipSpecialtyStart DateEnd Date Adam Del Valle DO [address] [place] [address] [facility] - [facility]10/13/23Team MemberRelationshipSpecialtyStart Date End Date Adam Del Valle DO [address] [place] [address] PCP - [facility]10/13/23 Team Status: Active Member Role Status Dates Adam Del Valle DO Primary Care Provider Active Start: August 01, 2024 Juliette Davis CMAAttnataliia ProviderActiveStart: August 01, 2024 Team Status: Inactive Member Role Status Dates Adam Del Valle DO Primary Care Provide r, Attending Provider Active Start: September 02, 2024 End: September 02, 2024Team MemberRelationshipSpecialtyStart DateEnd Date Adam Del Valle DO [address] [place] [address] [facility] Team Status: Inactive Member Role Status Dates Adam Del Valle DO Primary Care Provider Active Start: September 02, 2024 End: September 02lety Del Valle , DOAttending ProviderActiveStart: September 02, 2024 End: September 02, 2024 Team Status: Active Member Role Status Dates Adam Del Valle DO Primary Care Provider Active Start: November 11, 2024 Hasmukh Vides DODaniellargendemetris ProviderActiveStart: November 11, 2024 Silvano Reed , DOAdmit ProviderActiveStart: November 11, 2024 Silvano Reed , DOAttending ProviderActiveStart: November 11, 2024 Team Status: Inactive Member Role Status Dates Adam Del Valle DO Primary Care Provider Active Start: November 11, 2024 End: November 12, 2024Hasmukh Vides DOEmergency ProviderActiveStart: November 11, 2024 End: November 12, 2024Silvano Reed , DOAdmit ProviderActiveStart: November 11, 2024 End: November 12, 2024Hoang Conner DOAttending ProviderActiveStart: November 11, 2024 End: November 12, 2024 Team Status: Active Member Role Status Dates Adam Del Valle DO Primary Care Provider Active Start: November 12, 2024 Juliette Davis CMAAttending ProviderActiveStart: November 12, 2024 Team Status: Inactive Member Role Status Dates Adam Del Valle DO Primary Care Provider Active Start: November 19, 2024 End: November 19lety Del Valle , DOAttending ProviderActiveStart: November 19, 2024 End: November 19, 2024 Team Status: Inactive Member Role Status Dates Adam Del Valle DO Primary Care Provider Active Start: January 02, 2025 End: January 02, 2025Josue Beavers MDAttending ProviderActiveStart: January 02, 2025 End: January 02, 2025 Team Status: Active Member Role Status Dates Adam Del Valle DO Primary Care Provider Active Start: January 05, 2025 Nidal N Choujaa , DOEmergency ProviderActiveStart: January 05, 2025 Elsieapoorva Bryansera , MDAdmit ProviderActiveStart: January 05, 2025 Elsie Horacio , MDAttending ProviderActiveStart: January 05, 2025 Team Status: Inactive Member Role Status Dates Adam Del Valle DO Primary Care Provider Active Start: January 05, 2025 End: January 09, 2025Nimichelle Proctor DOEmergendemetris ProviderActiveStart: January 05, 2025 End: January 09, 2025Ruta Horacio , MDAdmit ProviderActiveStart: January 05, 2025 End: January 09, 2025Jostin Larose DOAttending ProviderActiveStart: January 05, 2025 End: January 09, 2025Team MemberRelationshipSpecialtyStart DateEnd Date Adam Del Valle DO [address] [place] [address] PCP - [facility]10/13/23 Juliette Perla RN Care ManagerCase Management01/09/25Team MemberRelationshipSpecialtyStart DateEnd Date Adam Del Valle DO [address] [place] [address] PCP - GeneralInternal Medicine10/13/23 Juliette Perla RN Care ManagerCase Management01/09/25 Team Status: Active Member Role Status Dates Adam Del Valle DO Primary Care Provider Active Start: January 10, 2025 Zan Hart ProviderActiveStart: January 10, 2025 Team Status: Active Member Role Status Dates Adam Del Valle DO Primary Care Provider Active Start: January 17, 2025 Ashkan Arguelles ProviderActiveStart: January 17, 2025 Team Status: Inactive Member Role Status Dates Adam Del Valle DO Primary Care Provider Active Start: January 21, 2025 End: January 21Jose Lozada ProviderActive Start: January 21, 2025 End: January 21, 2025Team MemberRelationshipSpecialtyStart DateEnd Date Adam Del Valle DO [address] [place] [address] PCP - GeneralInternal Medicine10/13/23 Juliette Perla RN [facility]/09/25 Team Status: Active Member Role Status Dates Adam Del Valle DO Primary Care Provider Active Start: January 30, 2025 Ashkan Arguelles ProviderActiveStart: January 30, 2025 Team Status: Active Member Role Status Dates Adam Del Valle DO Primary Care Provider Active Start: February 16, 2025 NidShakeel Lucasrrodrigo ProviderActiveStart: February 16, 2025 Mohyaima Nobles , MDAdmit ProviderActiveStart: February 16, 2025 Gabriela Nobles MDAttending ProviderActiveStart: February 16, 2025 Team Status: Active Member Role Status Dates Adam Del Valle DO Primary Care Provider Active Start: February 16, 2025 NidShakeel Lucasrgendemetris ProviderActiveStart: February 16, 2025 Gabriela Nobles , MDAdmit ProviderActiveStart: February 16, 2025 Paty Ruby ProviderActiveStart: February 16, 2025 Jose Keller ProviderActiveStart: February 16, 2025 Paty Keller ProviderActiveStart: February 16, 2025 Team Status: Active Member Role Status Dates Adam Del Valle DO Primary Care Provider Active Start: February 19, 2025 Juliette Davis CMAAttnataliia ProviderActiveStart: February 19, 2025 Team Status: Active Member Role/Relationship Status Dates Adam Del Valle DO Primary Care Provider Active Team Status: Inactive Member Role/Relationship Status Dates Adam Del Valle DO Primary Care Provider Active Start: January 02, 2025 End: January 02, 2025Josue Beavers MDAttnataliia ProviderActiveStart: January 02, 2025 End: January 02, 2025 Team Status: Inactive Member Role/Relationship Status Dates Adam Del Valle DO Primary Care Provider Active Start: January 05, 2025 End: January 09, 2025Nidal N Choujaa , DOEmergency ProviderActiveStart: January 05, 2025 End: January 09, 2025Elsie Leonard MDAdmit ProviderActiveStart: January 05, 2025 End: January 09, 2025Jostin Larose DOAttending ProviderActiveStart: January 05, 2025 End: January 09, 2025 Team Status: Active Member Role/Relationship Status Dates Adam Del Valle DO Primary Care Provider Active Start: January 10, 2025 Juliette Davis CMAAttnataliia ProviderActiveStart: January 10, 2025 Team Status: Active Member Role/Relationship Status Dates Adam Del Valle DO Primary Care Provider Active Start: January 17, 2025 Ashkan Arguelles ProviderActiveStart: January 17, 2025 Team Status: Inactive Member Role/Relationship Status Dates Adam Del Valle DO Primary Care Provider Active Start: January 21, 2025 End: January 21helena Muniz MDAttending ProviderActive Start: January 21, 2025 End: January 21, 2025 Team Status: Active Member Role/Relationship Status Dates Adam Del Valle DO Primary Care Provider Active Start: January 30, 2025 Ashkan Arguelles ProviderActiveStart: January 30, 2025 Team Status: Active Member Role/Relationship Status Dates Adam Del Valle DO Primary Care Provider Active Start: February 16, 2025 Nidal N Hitesh , DOEmergency ProviderActiveStart: February 16, 2025 Gabriela Nobles MDAdmit ProviderActiveStart: February 16, 2025 Paty Ruby ProviderActiveStart: February 16, 2025 Joanie Akbar MDAttending ProviderActiveStart: February 16, 2025 Paty Keller ProviderActiveStart: February 16, 2025 Team Status: Active Member Role/Relationship Status Dates Adam Del Valle DO Primary Care Provider Active Start: February 19, 2025 Juliette Davis CMAAttending ProviderActiveStart: February 19, 2025 Team Status: Inactive Member Role/Relationship Status Dates Adam Del Valle DO Primary Care Provider Active Start: March 13, 2025 End: March 13, 2025Josue Beavers MDAttending ProviderActiveStart: March 13, 2025 End: March 13, 2025 Goals (unrecognized section and content) Type Treatment Intervention Code Status: Full Code Goals may be documented in an alternate section REASON FOR VISIT (unrecogniz ed section and content) ReasonCommentsFollow-up1 yrReasonCommentsAtrial FibrillationEKGSpecialty Diagnoses / ProceduresReferred By ContactReferred To Contact Diagnoses Atrial fibrillation, unspecified type (Multi) Procedures ECG 12 Lead Shannon Gonzalez MD [address] [facility], [place] [id number] Referral IDStatusReasonSthardyville DateExpiration DateVisits RequestedVisits [id number]/23/20249/23/263700XyvdygPxluzfrrMyhyew-vbKnhjykijh [facility] 03/20SpecialtyDiagnoses / ProceduresReferred By ContactReferred To Contact Diagnoses Atrial fibrillation, unspecified type (Multi) Procedures ECG 12 Lead Shannon Gonzalez MD [address] [place], [place] [address], [place] [id number] Phone: tel: fax: Referral IDStatusasonSthardyville DateExpiration DateVisits RequestedVisits [id number]/13/202411/13/[id number] Follow-upHospital [facility]Diagn[facility] / ProceduresReferred By ContactReferred To ContactCardiology Diagnoses Non-ischemic cardiomyopathy (Multi) Procedures Follow Up In Cardiology Shannon Gonzalez MD [address] [place], [place] [address], [place] [id number] Phone: tel: fax: Shannon Gonzalez MD [address] [facility], [place] [id number] Phone: tel: fax: Referral IDStatReasonSthardyville DateExpiration DateVisits RequestedVisits [id number]/13/202411/13/[id number] visit SpecialtyDiagnoses / ProceduresReferred By ContactReferred To Contact Diagnoses Atrial fibrillation, unspecified type (Multi) Procedures ECG 12 Lead Shannon Gonzalez MD [address], [place] [address] [place], [place] [id number] Phone: tel: fax: Referral IDStatusReasonStart DateExpiration DateVisits RequestedVisits [id number]/25/20252/25/[id number]-zb7 month follow up Echo Stress resultsSpecialtyDiagnoses / ProceduresReferred By Contact Referred To ContactCardiology Diagnoses Non-ischemic cardiomyopathy (Multi) Procedures Follow Up In Cardiology Shannon Gonzalez MD [address], [place] [id number] Phone: tel: fax: Shannon Gonzalez MD [address], [place] [address] [place], [place] [address] Phone: tel: fax: Referral IDStatusReasonStart DateExpiration DateVisits RequestedVisits [id number] Follow-upTCM for CardiomyopathySpecialtyDiagnoses / ProceduresReferred By ContactReferred To Contact Diagnoses High risk medication use Procedures ECG 12 Lead Ning Godoy, [employer] AR[employer]ER [address], [place] [id number] Phone: tel: fax: Referral IDStatusReasonStart DateExpiration DateVisits RequestedVisits [id number]/3/20259/3/[id number]-anCIT visit SpecialtyDiagnoses / ProceduresReferred By ContactReferred To Contact Diagnoses High risk medication use Procedures ECG 12 Lead Ning Godoy, [employer] C[employer] AR[employer] ENGINEER [address], [place] [address] [place] [address] Phone: tel: fax: Referral IDStatusReasonStart DateExpiration DateVisits RequestedVisits [id number]/4/20259/4/202611 FOR RECORDS PERTAINING TO PATIENTS WHO ARE [...] BE BASED ON THE PRIMARY CLINICAL RECORDS. [employer] [facility]. provides no warranty or guarantee of the accuracy or completeness of information in this document.
[2025-03-16] MEDS: METHYLPREDNISOLONE SOD SUCC PF 125 MG/2 ML VIAL IVP (14:18)
[2025-03-16 14:22] LABS: Hematocrit 31.5 % (42.0-54.0); Hemoglobin 10.2 g/dL (14.0-18.0); Immature Granulocytes Abs Auto 0.01 10^3/uL (0.00-0.03); Immature Granulocytes Pct Auto 0.2 % (0.0-0.5); Lymphocytes Absolute Auto 0.8 10^3/uL (1.2-3.8); Mean Corpuscular HGB Conc 32.4 g/dL (29.9-35.2); Mean Corpuscular Hemoglobin 31.0 pg (25.9-34.0); Mean Corpuscular Volume 95.7 fL (80.0-94.0); Platelet Count 192 10^3/uL (150-450); Red Blood Count 3.29 10^6/uL (4.70-6.10); White Blood Count 5.1 10^3/uL (4.0-11.0)
[2025-03-16] MEDS: IPRATROPIUM/ALBUTEROL SULFATE 3 ML AMPUL.NEB IH ×2 (14:30→20:28)
[2025-03-16 14:50] LABS: Anion Gap 9.9; Blood Urea Nitrogen 8.0 mg/dL (7.0-18.0); Calcium 8.4 mg/dL (8.5-10.1); Carbon Dioxide 28.8 mmol/L (21.0-32.0); Chloride 103 mmol/L (98-107); Estimated GFR (African America >60 (>=60 mL/min/1.73m^2); Estimated GFR (Non-African Ame >60 (>=60 mL/min/1.73m^2); Glucose 134 mg/dL (74-106); NT Pro B Type Natriuretic Pept 650.0 pg/mL (<=900.0); Potassium 3.7 mmol/L (3.5-5.1); Sodium 138 mmol/L (136-145)
--- NOTE | 2025-03-16 14:56 | ED.SOB1 ---
HPI - SOB/Dyspnea General Chief Complaint: Shortness of Breath/Dyspnea Stated Complaint: SOB, GENERAL WEAKNESS Time Seen by Provider: 03/16/25 14:03 Source: patient Mode of arrival: ambulance Limitations: no limitations History of Present Illness HPI Narrative: cc -shortness of breath Related Data Home Medications ?Medication ?Instructions ?Recorded ?Confirmed albuterol sulfate 90 mcg/actuation 2 inh inhalation Q4H PRN shortness 02/02/24 02/02/24 aerosol inhaler of breath or wheezing carvedilol 12.5 mg tablet 12.5 mg PO Q12H 02/02/24 02/02/24 finasteride 5 mg tablet 5 mg PO DAILY 02/02/24 02/02/24 fluticasone 500 mcg-salmeterol 50 1 inh inhalation Q12H 02/02/24 02/02/24 mcg/dose blistr powdr for inhalation ipratropium 0.5 mg-albuterol 3 mg 3 ml inhalation QID 02/02/24 02/02/24 (2.5 mg base)/3 mL nebulization soln ipratropium bromide 0.02 % 2.5 ml inhalation Q6H 02/02/24 02/02/24 solution for inhalation pantoprazole 40 mg tablet,delayed 40 mg PO DAILY 02/02/24 02/02/24 release prednisone 5 mg tablet 5 mg PO DAILY 02/02/24 02/02/24 sacubitril 24 mg-valsartan 26 mg 1 tab PO BID 02/02/24 02/02/24 tablet (Entresto) tamsulosin 0.4 mg capsule 0.4 mg PO BID 02/02/24 02/02/24 Previous Rx's ?Medication ?Instructions ?Recorded acetaminophen 300 mg-codeine 30 mg 1 tab PO Q6H PRN pain 5 days #20 03/06/24 tablet tabs Allergies Allergy/AdvReac Type Severity Reaction Status Date / Time No Known Drug Allergies Allergy Verified 03/16/25 14:03 PFSH PFSH Social History Little interest or pleasure in doing things: not at all Feeling down, depressed, or hopeless: not at all Exam Narrative Exam Narrative: Nurses notes and vital signs reviewed and patient is not hypoxic. afebrile General: Cachectic male with increased respiratory rate. Skin: Warm, dry, no pallor noted. Head: Normocephalic, atraumatic. Neck: Supple, non-tender. No crepitus or subcutaneous emphysema Eye: Pupils are equal, round and EOMI. No scleral icterus. Ears, Nose, Mouth, and Throat: Oral mucosa is slightly dry Cardiovascular: Regular Rate and Rhythm without murmur, gallop or rub. Respiratory: Mild accessory muscle use but no respiratory distress. Lungs with decreased air exchange anteriorly -better posteriorly. Lungs with scattered rhonchi and some end expiratory wheezing Musculoskeletal: normal ROM, no calf or popliteal tenderness, no lower extremity edema/swelling GI: Abdomen is soft, non-distended. Normal bowel sounds. No tenderness to palpation. No rebound, guarding, or rigidity noted. Neurological: A&O x4. No cranial nerve dysfunction observed. No truncal ataxia. Moves all extremities. Sensation intact. Psychiatric: Cooperative and interactive. Normal mood and affect. Constitutional Vital Signs, click to edit/add: Last Vital Signs Temp 97.5 F L 03/16/25 14:09 Pulse 95 H 03/16/25 15:10 Resp 16 03/16/25 15:10 BP 130/75 03/16/25 15:00 Pulse Ox 98 03/16/25 15:00 O2 Del Method Nasal Cannula 03/16/25 14:39 O2 Flow Rate 3 03/16/25 14:39 Course Vital Signs Vital signs: Vital Signs Pulse Rate 98 H 03/16/25 14:03 Respiratory Rate 24 H 03/16/25 14:03 Blood Pressure 122/70 03/16/25 14:03 Pulse Oximetry 94 L 03/16/25 14:03 Oxygen Delivery Method Nasal Cannula 03/16/25 14:03 Oxygen Delivery Flow Rate 4 03/16/25 14:03 Temperature 97.5 F L 03/16/25 14:09 Pulse Rate 95 H 03/16/25 15:10 Respiratory Rate 16 03/16/25 15:10 Blood Pressure 130/75 03/16/25 15:00 Pulse Oximetry 98 03/16/25 15:00 Oxygen Delivery Method Nasal Cannula 03/16/25 14:39 Oxygen Delivery Flow Rate 3 03/16/25 14:39 MDM - SOB/Dyspnea MDM Narrative Medical decision making narrative: Patient was placed on cardiac cath lab manager and EKG obtained. Blood drawn and sent for evaluation. EKG is similar to 1 obtained in 2023 on March 13. CBC unremarkable with a normal white blood cell count. He has some chronic anemia. BMP is normal with normal electrolytes and renal function. Troponin and BNP are normal. Chest x-ray shows stable granulomatous process and is negative for acute or progressive pleural-parenchymal disease, per radiologist interpretation. On reevaluation, after the patient had received IV Solu-Medrol and a DuoNeb treatment, he said he felt a little bit better but still was not back to baseline. Call was placed to the on-call hospitalist to discuss admission for this patient has a COPD exacerbation but remains tachypneic with increased work of breathing. He is not in acute respiratory failure and does not require positive pressure assistance but I think he would benefit from at least an overnight observation stay for continued treatment. Medical Records Attestation: I reviewed the patient's medical records. Medical records narrative: He had past transfer and hospitalization at [facility] for CHF. He also has sarcoidosis and history of COPD. Lab Data Attestation: I reviewed the patient's lab results. Labs: Lab Results 03/16/25 Range/Units 14:17 WBC 5.1 (4.0-11.0) 10^3/uL RBC 3.29 L (4.70-6.10) 10^6/uL Hgb 10.2 L (14.0-18.0) g/dL Hct 31.5 L (42.0-54.0) % MCV 95.7 H (80.0-94.0) fL MCH 31.0 (25.9-34.0) pg MCHC 32.4 (29.9-35.2) g/dL RDW 17.2 H (11.0-15.0) % Plt Count 192 (150-450) 10^3/uL MPV 8.5 L (9.5-13.5) fL Neut % (Auto) 67.2 (43.0-75.0) % Lymph % (Auto) 16.4 L (20.5-60.0) % Ness % (Auto) 8.4 (1.7-12.0) % Eos % (Auto) 7.4 H (0.9-7.0) % Baso % (Auto) 0.4 (0.2-2.0) % Neut # (Auto) 3.4 (1.4-6.5) 10^3/uL Lymph # (Auto) 0.8 L (1.2-3.8) 10^3/uL Ness # (Auto) 0.4 (0.3-0.8) 10^3/uL Eos # (Auto) 0.4 (0.0-0.7) 10^3/uL Baso # (Auto) 0.0 (0.0-0.1) 10^3/uL Abs Immat Gran (auto) 0.01 (0.00-0.03) 10^3/uL Imm/Tot Granulo (auto) 0.2 (0.0-0.5) % Sodium 138 (136-145) mmol/L Potassium 3.7 (3.5-5.1) mmol/L Chloride 103 (98-107) mmol/L Carbon Dioxide 28.8 (21.0-32.0) mmol/L Anion Gap 9.9 BUN 8.0 (7.0-18.0) mg/dL Creatinine 1.11 (0.70-1.30) mg/dL Est GFR ( Amer) >60 (>=60 mL/min/1.73m^2) Est GFR (Non-Af Amer) >60 (>=60 mL/min/1.73m^2) BUN/Creatinine Ratio 7.2 Glucose 134 H (74-106) mg/dL Calcium 8.4 L (8.5-10.1) mg/dL Troponin I High Sens 9.0 (4.0-76.1) pg/mL NT-Pro-B Natriuret Pep 650.0 (<=900.0) pg/mL Imaging Data Chest x-ray: Attestation: I have reviewed the pertinent imaging results. Radiologist's impression: ITS Impressions Chest X-Ray 03/16/25 14:09 IMPRESSION: Stable chronic findings possibly sequela of long-standing granulomatous process. Negative for acute or progressive pleural-parenchymal disease. Impression dictated by: Prudencio Iyer M.D. 03/16/2025 3:33 PM Dictation Location: [place] [address] Electronically authenticated by: [id number] Y Date: 03/16/2025 15:33 ECG Data Attestation: I personally reviewed and interpreted this ECG as follows: Interpretation: EKG interpretation:Emergency Department physician interpretation. Normal sinus rhythm at 93bpm.moderate left axis deviation. Left bundle branch block. No ST segment elevation or depression. Comparison EKG March 13, 2024 = similar findings with incomplete left bundle branch block, left axis deviation and nonspecific changes Discharge Plan Discharge Chief Complaint: Shortness of Breath/Dyspnea Clinical Impression: Acute infective exacerbation of chronic obstructive airway disease, Sarcoidosis of lung, Tachypnea Patient Disposition: Admitted as Observation Time of Disposition Decision: 15:45
--- OUTSIDE RECORDS SUMMARY | 2025-03-16 16:34 | XMS_ITS | CCD ---
Author Organization [facility] Care Team Providers Care Director Apparel Name Role Phone Adam Del Valle Unavailable [...] Provider Lindbloom, DO Silvano Admit Provider DO Derke Silvano Attending Provider JOANNE Tang Other Provider Unavailable DO Judith Rodriguez Other Provider MD Shannon Gonzalez Other Provider MD Steven Alvares Other Provider MD Chacho Burroughs Other Provider MD Casey Harper Other Provider CHARLEY Godoy Other Provider MD Cheli Wood Other Provider MD Damien Gonzalez Other Provider MD Kimani Wolfe Other Provider Bailee [facility] Karina Galvan Other Provider DO Sin Mabry Emergency Provider MD Altaf Jones Attending Provider DO Adam Del Valle Primary Care Provider Lindhameltoom, DO Silvano Admit Provider DO Derek Silvano Attending Provider JOANNE Tang Other Provider Unavailable DO Judith Rodriguez Other Provider MD Shannon Gonzalez Other Provider MD Steven Alvares Other Provider MD Chacho Burroughs Other Provider MD Casey Harper Other Provider CHARLEY Godoy Other Provider MD Cheli Wood Other Provider MD Damien Gonzalez Other Provider MD [facility]ani Wolfe [facility] Other Provider DO Sin Mabry Emergency Provider MD Altaf Jones Attending Provider [phone] MD Gabriela Nobles Admit Provider DO Eriberto [...] Provider Kimani Wolfe MD Other Provider Bailee [facility], Karina Galvan Other Provider Sin Mabry DO Emergency Provider [phone] Altaf Jones MD Attending Provider Giuliano SALMON, Gabriela Admit Provider Ck KING, Eriberto Robertson Other Provider Dia SALMON, Ijeoma Other Provider Hasmukh Mace MD Other Provider Nuvia Keita APRN Other Provider [phone] Franklin DO, Freddie Galvan Other Provider Deysi SALMON, Gutierrez Rodriguez Other Provider Martell SALMON, Baudilio Francisco Other Provider Adam Del Valle DO Attending Provider Adam Del Valle DO Primary Care Provider Robert SALMON, Altaf Attending Provider [phone] Shannon Gonzalez MD Referring Provider [phone] [...] Emergency Provider Silvano Reed DO Admit Provider [phone] Silvano Reed DO Attending Provider [phone] Hoang Conner DO Attending Provider Juliette Davis CMA Attending Provider Unavaila Adam Lainez DO Primary Care Provider Adam Del Valle DO Attending Provider Josue Beavers MD Attending Provider Chouavtar KING, Nidal N Emergency Provider Horacio SALMON, Elsie Admit Provider Elsie Leonard MD Attending Provider Jostin Larose [...] Provider Gabriela Nobles MD Attending Provider Adam DelV alle DO Primary Care Provider Randy SALMON, Jose Other Provider Joanie Akbar MD Attending Provider [phone] Joanie Akbar MD Other Provider Clinton NORMAN [...] reviewed by nurse or physiciaPropensity to adverse [id number]:[employer] Other (1 source)ALLERGIES NOT ON FILE; Translations: [ALLERGIES NOT ON FILE]Propensity to adverse reactions (disorder)[facility] Medications Current Medications MedicationDrug Class(es)DatesSig (Normalized)Sig (Original)Advair Diskus 500-50 MCG/DOSE (5 sources)Start: 89-94-0474gvoy 1 puff(s) by inhalation twice dailyAdvair Diskus 500-50 MCG/DOSE 1 puff Inhalation Twice a day for 90 days Jun, [id number] 200 actuat albuterol 0.09 mg/actuat metered dose inhaler (20 sources)beta2-Adrenergic AgonistStart: 41-48-5686ljag 1 puff(s) by inhalation every six hours as needed for wheezingStart: 10-23-2023 End: 44-84-0926vquf 2 puff(s) by mouth every six hours as neededAlbuterol Sulfate 90 mcg/actuation HFA aerosol inhaler Discontinued 0 .ROUTE .COMPLEX 18 11 October 23, 2023 5:53pm July 09, 2024 11:25am Bullous emphysema Emphysema, unspecified INHALE 2 PUFFS BY MOUTH EVERY 6 HOURS NEEDEDStart: 10-23-2023 End: 08-52-8397Dwlqmygit Sulfate (Ventolin Hfa) 90 mcg/actuation HFA aerosol inhaler Discontinued 2 PUFF INHALATION Q4H as needed for Shortness Of Breath Or Wheezing 6 90 October 23, 2023 3:23pm October 23, 2023 5:53pm Bullous emphysema Emphysema, unspecified Dispense 6 inhalers (2 per month)Start: 10-23-2023 End: 46-58-0169Iwwtahfgy Sulfate (Ventolin Hfa) 90 mcg/actuation HFA aerosol inhaler Discontinued 2 PUFF INHALATION Q4H 6 90 October 23, 2023 2:23pm October 23, 2023 4:53pm Dispense 6 inhalers (2 per month)Start: 09-08-2023 End: 36-72-5653aahu 2.5 mg by inhalation four times dailyAlbuterol Sulfate 2.5 mg /3 mL (0.083 %) solution for nebulization Discontinued 2.5 MG INHALATION Four times daily September 08, 2023 12:00am July 09, 2024 11:25amStart: 08-57-7282dgjy 2 puff(s) by inhalation every six hours as neededAlbuterol Sulfate HFA 108 (90 Base) MCG/ACT 2 puffs Inhalation every 6 hrs, as needed for 30 days September, ActiveStart: 15-41-4220xaut 2 puff(s) by inhalation every six hours as neededAlbuterol Sulfate HFA 108 (90 Base) MCG/ACT 2 puffs Inhalation every 6 hrs, as needed for 30 days September, ActiveStart: 79-14-5039qqbv 2 puff(s) by inhalation every six hours as neededAlbuterol Sulfate HFA 108 (90 Base) MCG/ACT 2 puffs Inhalation every 6 hrs, as needed for 30 days September, ActiveStart: 91-47-8520Egsrualqj Sulfate (2.5 MG/3ML) 0.083% 1 unit dose Inhalation four times a day DX J44.9 COPD for 30 days Aug, ActiveStart: 10-89-9699Uzikjpiej Sulfate (2.5 MG/3ML) 0.083% 1 unit dose Inhalation four times a day DX J44.9 COPD for 30 days Aug, ActiveStart: 80-31-6341bttb 2 puff(s) by inhalation every four hoursalbuterol (Ventolin HFA) 90 mcg/actuation inhaler Inhale 2 puffs every 4 hours if needed. 08/02/2019 ActiveStart: 80-01-6188obcz 2 puff(s) by mouth every four hours as needed for coughVentolin HFA 108 (90 Base) MCG/ACT Inhalation Aerosol Solution INHALE 2 PUFFS BY MOUTH EVERY 4 HOURS NEEDED FOR COUGH / DYSPNEA Quantity: 36 Refills: 0 Ordered: 18-Jul-2020 DO Start : 02-Aug-2019 ActiveStart: 98-76-2646txbb 1 puff(s) by inhalation every six hoursAlbuterol Sulfate (Ventolin Hfa) 90 mcg/actuation Hfa Aerosol Inhaler Active 2 PUFF INHALATION Q6H May 11, 2018 9:16pmStart: 05-11-2018 End: 15-17-5919qmpo 1 puff(s) by inhalation every six hours as needed for wheezingAlbuterol Sulfate (Ventolin Hfa) 90 mcg/actuation Hfa Aerosol Inhaler Discontinued 2 PUFF INHALATION Q6H as needed for Shortness Of Breath Or Wheezing May 11, 2018 1:00am October 23, 2023 3:25pmalbuterol 0.833 mg/ml / ipratropium bromide 0.167 mg/ml inhalation solution (20 sources)Anticholinergic, beta2-Adrenergic AgonistStart: 01-30-2024 End: 88-41-1277cuul 1 mL by inhalation four times daily as neededStart: 01-29-2024 End: 45-17-5333vaai 2.5 mL by inhalation four times dailyIpratropium-Albuterol 0.5 mg-3 mg(2.5 mg base)/3 mL solution for nebulization Discontinued 0 .ROUTE .COMPLEX 360 5 January 29, 2024 12:51pm January 30, 2024 11:36am INHALE 2.5ML VIA NEBULIZERFOUR TIMES DAILY FOR 30 DAYSStart: 73-96-2387rbxt 3 mL by inhalation every six hours as neededipratropium-albuteroL (Duo-Neb) 0.5-2.5 mg/3 mL nebulizer solution Inhale 3 mL every 6 hours if needed. 09/09/2019 Active Start: 12-20-4782Mqlzsbaoqot-Albuterol 0.5-2.5 (3) MG/3ML Inhalation Solution INHALE 1 (ONE) vial via NEBULIZER TWICE DAILY - FOUR TIMES DAILY Quantity: 360 Refills: 0 Ordered: 21-May-2020 DO Start : 09-Sep-2019 ActiveStart: 05-11-2018 End: 87-20-4473Wwcjzfdtltv-Albuterol 0.5 mg-3 mg(2.5 mg base)/3 mL Solution For Nebulization Discontinued 3 ML INHALATION every 6 to 8 hours as needed for Wheezing May 11, 2018 1:00am October 12, 2023 2:02pmStart: 33-58-8329cdet 3 mL by inhalation four times dailyIpratropium-Albuterol 0.5-2.5 (3) MG/3ML 3 ml Inhalation Four times a day DX COPD j44.9 for 30 daysApr, ActiveStart: 54-58-1170sewb 3 mL by inhalation every six hoursIpratropium-Albuterol 0.5-2.5 (3) MG/3ML 3 ml Inhalation every 6 hrs Apr, ActiveAlbuterol Sulfate (Ventolin Hfa) 90 mcg/actuation Hfa Aerosol Inhaler (14 sources)Start: 98-60-0263uzwf 1 puff(s) by inhalation every six hours Albuterol Sulfate (Ventolin Hfa) 90 mcg/actuation Hfa Aerosol Inhaler Active 2 PUFF INHALATION Q6H May 11, 2018 9:16pmStart: 05-11-2018 End: 05-67-9018gkvh 1 puff(s) by inhalation every six hours as needed for wheezingAlbuterol Sulfate (Ventolin Hfa) 90 mcg/actuation Hfa Aerosol Inhaler Discontinued 2 PUFF INHALATION Q6H as needed for Shortness Of Breath Or Wheezing May 11, 2018 1:00am October 23, 2023 3:25pmStart: 05-11-2018 End: 16-91-2008jefl 1 puff(s) by inhalation every six hours as needed for wheezingAlbuterol Sulfate (Ventolin Hfa) 90 mcg/actuation Hfa Aerosol Inhaler Discontinued 2 PUFF INHALATION Q6H as needed for Shortness Of Breath Or Wheezing May 11, 2018 12:00am October 23, 2023 2:25pmStart: 05-11-2018 End: 11-93-5737jutz 1 puff(s) by inhalation every six hoursAlbuterol Sulfate (Ventolin Hfa) 90 mcg/actuation Hfa Aerosol Inhaler Discontinued 2 PUFF INHALATION Q6H May 11, 2018 12:00am October 23, 2023 2:25pmStart: 05-11-2018 End: 40-62-0805ojwk 1 puff(s) by inhalation every six hoursAlbuterol Sulfate (Ventolin Hfa) 90 mcg/actuation Hfa Aerosol Inhaler Discontinued 2 PUFF INHALATION Q6H May 11, 2018 1:00am October 23, 2023 3:25pmaspirin 81 mg delayed release oral tablet (20 sources)Platelet Aggregation Inhibitor, Nonsteroidal Anti-inflammatory Drug Start: 86-69-4548iofk 1 tablet by mouth once dailyStart: 03-20-2024 End: 51-36-1247sbfm 1 tablet by mouth once dailyAspirin 81 mg Tablet,Delayed Release (Dr/Ec) Discontinued 81 MG PO Daily March 20, 2024 1:00am May 01, 2024 12:36pmtake 1 tablet by mouth once dailyaspirin 81 mg tablet Take 81 mg by mouth once daily. Activeatorvastatin 40 mg oral tablet (20 sources)HMG-CoA Reductase InhibitorStart: 03-20-2024 End: 68-98-2481jhau 1 tablet by mouth once daily in the morningdapagliflozin 10 mg oral tablet (9 sources)Sodium-Glucose Cotransporter 2 InhibitorStart: 01-09-2025 End: 98-83-5174ufkz 1 tablet by mouth once daily in the morningtake 1 tablet by mouth every twenty-four hoursdapagliflozin propanediol (Farxiga) 10 mg tablet Take 1 tablet (10 mg) by mouth once every 24 hours. Activedigoxin 0.125 mg oral tablet (8 sources)Cardiac GlycosideStart: 06-06-2024 End: 66-87-8512nwuz 1 tablet by mouth once dailydigoxin (Lanoxin) 125 MCG tablet Indications: 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 (Multi) Take 1 tablet (125 mcg) by mouth once daily. 90 tablet 3 06/06/2024 10/31/2024 Discontinued (Discontinued by another clinician)dofetilide 0.25 mg oral capsule (20 sources)AntiarrhythmicStart: 08-12-2024 End: 41-10-6841lnfx 1 capsule by mouth every twelve hoursStart: 08-05-2024 dofetilide 250 mcg oral capsule 250 mcg = 1 cap(s), Refills(s) 0 Start Date: 08/05/24 Status: Ordered Repeat number: 1Start: 07-09-2024 End: 27-71-4581twet 1 capsule by mouth twice dailyDofetilide 125 mcg Capsule Discontinued 125 MCG PO Twice daily 0 0 July 09, 2024 1:00am November 11, 2024 3:11amStart: 03-20-2024 End: 36-62-1453ljui 1 capsule by mouth every twelve hoursdofetilide (Tikosyn) 250 mcg capsule 1 capsule (250 mcg) every 12 hours. 03/20/2024 07/25/2024 Disco ntinued (Dose adjustment)Start: 03-20-2024 End: 32-68-5749tzrq 1 capsule by mouth twice dailyDofetilide 250 mcg Capsule Discontinued 250 MCG PO Twice daily 60 30 12 March 20, 2024 1:00am July 09, 2024 11:25am End: 84-92-7002rtuf 1 capsule by mouth every twelve hoursdofetilide (Tikosyn) 125 mcg capsule Take 1 capsule (125 mcg) by mouth every 12 hours. 10/31/2024 Di scontinued (Therapy completed)fluticasone 0.05 mg/inh Nasal [place] (2 sources)Start: 42-18-6733xhsmcajbnnz 0.05 mg/inh Nasal [place] Nasal, Daily, Refill(s) 0 Start Date: 09/11/19 Status: Orderedipratropium bromide 0.2 mg/ml inhalation solution (20 sources)AnticholinergicStart: 01-30-2024 End: 76-83-3057iaou 2.5 mL by inhalation four times dailyipratropium (Atrovent) 0.02 % nebulizer solution INHALE 2.5ml via NEBULIZER FOUR TIMES DAILY 01/30/2024 10/31/2024 Discontinued (Therapy completed)Start: 10-12-2023 End: 85-62-4616suir 0.5 mg by inhalation four times dailyIpratropium Ashley 0.02 % solution Discontinued 0.5 MG INHALATION Four times daily 300 30 5 Sept2023 8:52am January 29, 2024 12:51pmStart: 10-12-2023 End: 10-09-4339baox 0.5 mg by inhalation four times dailyIpratropium Ashley Discontinued 0.5 MG INHALATION Four times daily 300 30 January 29, 2024 7:52 am January 29, 2024 11:51amStart: 15-65-9617qywj 1 [IU] by inhalation four times dailyIpratropium [place] 0.02 % 1 unit dose Inhalation four times a day DX J44.9 COPD for 30 days Aug, ActiveStart: 89-55-4074tguj 1 [IU] by inhalation four times dailyIpratropium [place] 0.02 % 1 unit dose Inhalation four times a day DX J44.9 COPD for 30 days Aug, ActiveStart: 09-11-2019 ipratropium microgram, QID, Refills(s) 0 Start Date: 09/11/19 Status: Ordered Repeat number: 1Start: 13-01-8438bppvkupqxht microgram, QID, Refills(s) 0 Start Date: 09/11/19 Status: Orderedlatanoprost 0.05 mg/ml ophthalmic solution (20 sources)Prostaglandin AnalogStart: 05-15-2525jrkq 1 drop(s) into the eye(s) at bedtimeStart: 60-42-9158qqzl 1 drop(s) into the eye(s) once dailyLatanoprost 0.005 % drops Active 1 DROPS OPHTHALMIC Daily October 12, 2023 12:00am Complies with drugtherapyStart: 89-93-8715hqpy 1 drop(s) into the eye(s) once daily Latanoprost Active 1 DROPS OPHTHALMIC Daily October 11, 2023 11:00pmStart: 40-49-7309gawb 1 drop(s) into the eye(s) once daily at bedtimelatanoprost (Xalatan) 0.005 % ophthalmic solution 1 drop once daily at bedtime. 10/05/2023 Reyavb88 hr metoprolol succinate 25 mg extended release oral tablet (20 sources)beta-Adrenergic BlockerStart: 06-99-6357wtgt 1 tablet by mouth every twenty-four hoursMetoprolol Succinate 25 mg tablet extended release 24 hr Active 25 MG PO Once June 03, 2024 12:00amStart: 05-24-2024 End: 99-43-5769eguz 1 tablet by mouth once daily in the morningmultivitamin (Multiple Vitamins) tablet (15 sources)Start: 23-65-7317pgkk 1 tablet by mouth once dailymultivitamin (Multiple Vitamins) tablet Take 1 tablet by mouth once daily. 12/15/2016 Active Multivitamin With Minerals (1 source)Start: 55-07-5799fzci 1 capsule by mouth once dailyMultivitamin With Minerals Active 1 CAP PO Daily March 19, 2024 12:00amMultivitamin With Minerals capsule (17 sources)Start: 44-38-1991jgep 1 capsule by mouth once dailyStart: 03-19-2024 take 1 capsule by mouth once dailyStart: 60-51-2234jvkh 1 capsule by mouth once dailyMultivitamin With Minerals capsule Active 1 CAP PO Daily March 19, 2024 1:00am Complies withdrug therapyStart: 29-76-4469hoxy 1 capsule by mouth once dailyMultivitamin With Minerals capsule Active 1 CAP PO Daily March 19, 2024 1:00amStart: 01-73-3241ciui 1 capsule by mouth once dailyMultivitamin With Minerals capsule Active 1 CAP PO Daily March 19, 2024 12:00am ofloxacin 3 mg/ml ophthalmic solution (5 sources)Quinolone AntimicrobialStart: 46-86-3950Pjglpl (6 sources)Start: 10-20-3027Bqgpkz Active 0 .Route October 22, 2023 11:00pm 2 [facility]Start: 48-23-9737Uegvee Active 0 .Route October 23, 2023 12:00am 2 liters at HS and napping [facility] Start: 72-41-9646Ebaykn Active 0 .ROUTE October 23, 2023 12:00am 2 liters [facility] HS [facility] n[facility] 2 liters pm and prn day (9 sources)Oxygen 2 liters pm and prn day at night and during the day prn Active Oxygen unit (17 sources)Start: 51-47-8887Khhype unit Active 0 .Route October 23, 2023 12:00am 2 liters at HS [facility] n[facility] CenterStart: 21-00-7834Vybpis unit Active 0 .Route October 22, 2023 11:00pm 2 liters at HS and napping [facility] Centerpantoprazole 40 mg delayed release oral tablet (20 sources)Proton Pump InhibitorStart: 47-42-9774xdnb 1 tablet by mouth once daily before breakfastStart: 02-18-2024 End: 66-19-9911wcju 1 tablet by mouth once daily at breakfastPantoprazole 40 mg tablet,delayed release (DR/EC) Discontinued 0 .ROUTE .COMPLEX 90 February 18, 2024 7:41pm July 09, 2024 11:25am TAKE 1 TABLET BY MOUTH ONCE DAILY ON AN EMPTY STOMACH 30 MINUTES prior to BREAKFASTStart: 67-07-9483xkwa 1 tablet by mouth once daily at breakfastPantoprazole Active 0 .ROUTE .COMPLEX February 18, 2024 6:41pm TAKE 1 TABLET BY MOUTH ONCE DAILYON AN EMPTY STOMACH 30 MINUTES prior to BREAKFASTStart: 40-73-2478hfxe 1 tablet by mouth once daily at breakfastPantoprazole Active 0 .ROUTE .COMPLEX February 18, 2024 7:41pm TAKE 1 TABLET BY MOUTH ONCE DAILYON AN EMPTY STOMACH 30 MINUTES prior to BREAKFAST Start: 08-14-2023 End: 16-12-2443qewv 1 tablet by mouth once dailyPantoprazole 40 mg tablet,delayed release (DR/EC) Discontinued 40 MG PO Daily September 08, 2023 12:00am February 18, 2024 7:41pmStart: 13-03-5958Vxhlwxokollt Sodium 40 MG 1 tablet Orally Once a day, on an empty stomach 30 minutes prior to bkfstfor 90 days Feb, Active End: 00-36-8504injd 1 tablet by mouth once daily before mealtimepantoprazole (ProtoNix) 20 mg EC tablet Take 1 tablet (20 mg) by mouth once daily in the morning. Take before meals. Do not crush, chew, or split. 03/27/2024 Discontinued (Dose adjustment)potassium chloride 10 meq extended release oral tablet (20 sources)Start: 04-83-3004jqvv 1 tablet by mouth once daily in the morning Start: 02-19-2025 End: 43-40-5109yprz 1 tablet by mouth twice dailyPotassium Chloride 20 mEq tablet,ER particles/crystals Discontinued 20 MEQ PO Twice daily February 19, 2025 12:00am March 13, 2025 9:40amStart: 01-23-2025 End: 26-83-7842oyer 1 tablet by mouth once daily in the eveningpotassium chloride CR (Klor-Con M20) 20 mEq ER tablet Indications: Non-ischemic cardiomyopathy (Multi) Take 1 tablet (20 mEq) by mouth once daily. Do not crush or chew. 90 tablet 3 01/23/2025 3:40 PMEDT 01/23/2025 01/23/2026 ActiveStart: 96-23-0117Iernsqxjf Chloride (Lvb-Mlnb-Fvq 10) 10 mEq oral tablet, extended release 10 mEq = 1 tab(s), Refills(s) 0 Start Date: 08/05/24 Status: Ordered Repeat number: 1Start: 03-27-2024 End: 64-69-2158Uzmsxgitv Chloride (Klor-Con 10) 10 mEq tablet extended release Discontinued 10 MEQ PO Daily November 19, 2024 12:13pm February 19, 2025 1:38pmrivaroxaban 20 mg oral tablet (20 sources)Factor Xa InhibitorStart: 02-04-2024 End: 46-24-4123ykrj 1 tablet by mouth once daily at bedtimesacubitril 24 mg / valsartan 26 mg oral tablet (20 sources)Angiotensin 2 Receptor BlockerStart: 07-09-2024 End: 56-93-4745vpcf 1 tablet by mouth every twelve hourssacubitriL-valsartan (Entresto) 24-26 mg tablet Take 1 tablet by mouth every 12 hours. 07/09/2024 Discontinued (Entered in Error)Start: 05-11-2018 End: 57-07-7257wjzu 1 tablet by mouth twice dailySacubitril-Valsartan (Entresto) 24-26 mg Tablet Discontinued 1 TAB PO Twice daily May 11, 2018 1:00am November 11, 2024 2:39amStart: 26-29-4449qluq 1 tablet by mouth twice daily Sacubitril-Valsartan (Entresto) 24-26 mg Tablet Active 1 TAB PO Twice daily May 11, 2018 1:00amStart: 95-56-7724jwth 1 tablet by mouth twice daily Sacubitril-Valsartan (Entresto) 24-26 mg Tablet Active 1 TAB PO Twice daily May 11, 2018 12:00amStart: 01-20-0458zrnd 1 tablet by mouth twice daily Sacubitril-Valsartan (Entresto) 24-26 mg Tablet Active 1 TAB PO Twice daily May 11, 2018 12:00am On Hold: hypotensionStart: 84-13-5704jfuk 1 tablet by mouth twice dailyEntresto 49-51 MG Oral Tablet TAKE 1 TABLET BY MOUTH TWICE DAILY Quantity: 60 Refills: 0 Ordered: 29-Dec-2015 DO Start : 04-Aug-2015 Active ENTRESTO 24 mg/26 mg 1 orally twice a day Activespironolactone 25 mg oral tablet (9 sources)Aldosterone AntagonistStart: 01-09-2025 End: 39-10-1957xphp 0.5 tablet by mouth once dailyspironolactone (Aldactone) 25 mg tablet Take 0.5 tablets (12.5 mg) by mouth once daily. Activetamsulosin hydrochloride 0.4 mg oral capsule (20 sources)alpha-Adrenergic BlockerStart: 82-05-9987qfkk 1 capsule by mouth twice dailyStart: 10-25-2021 End: 99-91-6991nfxw 1 capsule by mouth once dailyTamsulosin 0.4 mg capsule Discontinued 0.4 MG PO Daily October 25, 2021 12:00am October 25, 2021 2:10pm Start: 12-16-2019 End: 26-47-9848dciz 1 capsule by mouth twice dailyTamsulosin 0.4 mg capsule Discontinued 0.4 MG PO Twice daily September 08, 2023 12:00am March 25, 2024 9:49amThera Vitamin (9 sources)Thera Vitamin ActiveVentolin HFA 90 mcg/inh Aerosol-Adpt (2 sources)Start: 59-17-7360Mcksysai HFA 90 mcg/inh Aerosol-Adpt Refill(s) 0 Start Date: 08/14/23 Status: Ordered Repeat number: 1Start: 89-65-8231Pjwivyms HFA 90 mcg/inh Aerosol-Adpt Refill(s) 0 Start Date: 08/14/23 Status: Ordered Completed/Discontinued Medications MedicationDrug Class(es)DatesSig (Normalized)Sig (Original)acetaminophen 500 mg oral tablet (20 sources)Start: 42-60-7986nnwj 2 tablets by mouth every six hours as needed for feveracetaminophen 500 mg Tab 1,000 mg = 2 tab(s), Oral, q6hr, PRN for fever, # 120 tab(s), Refills(s) 0Start Date: 08/05/24 Status: Ordered Quantity: 120.0 Unit: tab(s) Repeat number: 1Start: 07-09-2024 End: 16-65-6099lehc 1-3 tablets by mouth every four hours as needed for pain Acetaminophen 500 mg Tablet Discontinued 500 MG PO Every 4 hours as needed for Pain Scale 1 - 3 or fever November 11, 2024 12:00am January 02, 2025 2:56pmStart: 07-09-2024 End: 78-11-8970mrub 1-3 tablets by mouth every six hours as needed for pain Acetaminophen 500 mg Tablet Discontinued 1000 MG PO Every 6 hours as needed for Pain Scale 1 - 3 orfever 0 0 July 09, 2024 1:00am November 11, 2024 4:46pm amiodarone hydrochloride 200 mg oral tablet (20 sources)AntiarrhythmicStart: 03-25-2024 End: 25-16-0050ctll 1 tablet by mouth once dailyAmiodarone 200 mg tablet Discontinued 200 MG PO Daily March 25, 2024 1:00am March 25, 2024 3:33pmStart: 03-14-2024 End: 07-24-1375annj 1 tablet by mouth twice dailyamiodarone (Pacerone) 200 mg tablet Indications: Atrial fibrillation, unspecified type (Multi) Take1 tablet (200 mg) by mouth 2 times a day. 60 tablet 1 03/14/2024 03/27/2024 Discontinued (Therapy completed)Start: 03-01-2024 End: 59-06-7479yvcf 2 tablets by mouth twice dailyAmiodarone 200 mg Tablet Discontinued 400 MG PO Twice daily March 01, 2024 12:00am March 20, 2024 1:50pmStart: 03-01-2024 End: 74-80-3520ktra 400 mg by mouth twice dailyAmiodarone Discontinued 400 MG PO Twice daily 28 February 29, 2024 11:00pm March 20, 2024 12:50pmStart: 03-01-2024 End: 44-72-3388cjrk 400 mg by mouth twice dailyAmiodarone Discontinued 200 MG PO Twice daily 60 February 29, 2024 11:00pm March 20, 2024 12:50pm start after you complete 400 mg twice daily for 7 daysamoxicillin 875 mg oral tablet (20 sources)Penicillin-class AntibacterialStart: 05-11-2018 End: 11-16-2215yemf 1 tablet by mouth twice dailyAmoxicillin 875 mg Tablet Discontinued 875 MG PO Twice daily May 11, 2018 1:00am July 05, 2018 2:03amamoxicillin 875 mg / clavulanate 125 mg oral tablet (20 sources)Penicillin-class AntibacterialStart: 02-11-2019 End: 07-81-2130gotr 1 tablet by mouth every twelve hoursAmoxicillin-Pot Clavulanate (Augmentin) 875-125 mg tablet Discontinued 1 TAB PO Q12H 20 February 11, 2019 12:00am October 25, 2021 2:09pm Eat yogurt or take probiotic while on antibiotic.azithromycin 250 mg oral tablet (2 sources)Macrolide AntimicrobialStart: 02-19-2025 End: 75-03-6073iytt 1 tablet by mouth once dailyAzithromycin 250 mg Tablet Discontinued 250 MG PO Daily 4 4 0 February 19, 2025 12:00am March 13, 2025 9:36ambaclofen 10 mg oral tablet (20 sources)gamma-Aminobutyric Acid-ergic AgonistStart: 03-08-2024 End: 08-93-7362jwjr 1 tablet by mouth four times daily as needed for muscle spasmsBaclofen 10 mg tablet Discontinued 10 MG PO Four times daily as needed for muscle spasm 28 7 0 March 08, 2024 12:00am March 25, 2024 3:54pm carvedilol 6.25 mg oral tablet (20 sources)alpha-Adrenergic Abisai, beta-Adrenergic BlockerStart: 03-20-2024 End: 68-89-1033hcip 3 tablets by mouth every twelve hourscarvedilol (Coreg) 6.25 mg tablet Take 3 tablets (18.75 mg) by mouth every 12 hours. 03/20/202405/15 Discontinued (Side effects)Start: 03-19-2024 End: 99-13-4423pncs 3 tablets by mouth twice dailyCarvedilol 6.25 mg tablet Discontinued 18.75 MG PO Twice daily March 25, 2024 3:29pm June 03, 2024 3:41pmStart: 43-92-3516nxkq 18.75 mg by mouth twice dailyCarvedilol Active 18.75 MG PO Twice daily 180 30 March 19, 2024 12:00amStart: 10-12-2023 End: 87-47-1881zxhy 1 tablet by mouth twice dailyCarvedilol 12.5 mg tablet Discontinued 12.5 MG PO Twice daily 60 11 10February 14, 2024 2:50pm March 20, 2024 1:50pmStart: 09-08-2023 End: 97-96-5536lokq 1 tablet by mouth twice dailyCarvedilol 6.25 mg tablet Discontinued 6.25 MG PO Twice daily September 08, 2023 12:00am October 12, 2023 2:00pmStart: 80-62-6463hdcu 6.25 mg by mouth twice dailyCarvedilol Active 6.25 MG PO Twice daily February 10, 2019 12:09amStart: 05-13-2018 End: 44-92-0746amjs 1 tablet by mouth twice dailyCarvedilol 12.5 mg tablet Discontinued 12.5 MG PO Twice daily February 10, 2019 12:09am September 08, 2023 3:44pmStart: 05-11-2018 End: 58-01-6105rhrv 1 tablet by mouth twice dailyCarvedilol 6.25 mg Tablet Discontinued 6.25 MG PO Twice daily May 11, 2018 1:00am May 13, 2018 2:03pmcefpodoxime 200 mg oral tablet (9 sources)Cephalosporin AntibacterialStart: 11-12-2024 End: 69-14-2437hkdw 1 tablet by mouth twice daily at mealtimeCefpodoxime 200 mg tablet Discontinued 200 MG PO Twice daily 6 3 0 November 12, 2024 12:00am January 02, 2025 3:05pm must administer with a meal/foodcephalexin 500 mg oral capsule (20 sources)Cephalosporin AntibacterialStart: 07-06-2018 End: 11-52-8428fzct 1 capsule by mouth twice dailyCephalexin 500 mg capsule Discontinued 500 MG PO Twice daily 10 5 0 July 06, 2018 1:00am February 10, 2019 12:10amfinasteride 5 mg oral tablet (20 sources)5-alpha Reductase InhibitorStart: 02-17-2020 End: 83-48-3029efli 1 tablet by mouth once dailyFinasteride 5 mg tablet Discontinued 5 MG PO Daily October 25, 2021 12:00am September 11, 2023 3:39pm fluticasone propionate 0.05 mg/actuat metered dose nasal spray (20 sources)CorticosteroidStart: 09-08-2023 End: 62-65-6016Vxgfcoihdty Propionate 50 mcg/actuation spray,suspension Discontinued 1 SPRAY INTRANASAL Daily September 08, 2023 12:00am July 09, 2024 11:25amStart: 31-28-3695xtucqmpmyap 0.05 mg/inh Nasal [place] Nasal, Daily, Refill(s) 0 Start Date: 09/11/19 Status: OrderedStart: 05-11-2018 End: 21-16-6085Gudfxadlhrb Propionate 50 mcg/actuation [place],Suspension Discontinued 1 SPRAY INTRANASAL Daily May 11, 2018 1:00am February 10, 2019 12:13amStart: 10-25-8971dosp 1 spray(s) nasal route once dailyFluticasone Propionate 50 MCG/ACT 1 spray in each nostril Nasally Once a day for 21 days Apr, ActiveStart: 78-46-5336ffla 1 spray(s) nasal route once daily Fluticasone Propionate 50 MCG/ACT 1 spray in each nostril Nasally Once a day for 21 days Apr, ActiveFluticasone Propion-Salmeterol (20 sources)Corticosteroid, beta2-Adrenergic AgonistStart: 02-02-2024 End: 14-82-4473Xbwfanzkogt Propion-Salmeterol 500-50 mcg/dose blister with device Discontinued INHALATION February 02, 2024 12:00am June 03, 2024 3:41pmStart: 02-02-2024 End: 25-11-3047Ejurisrkixt Propion-Salmeterol 500-50 mcg/dose blister with device Discontinued INHALATION February 01, 2024 11:00pm June 03, 2024 2:41pmStart: 25-53-3893Zsprimfsvml Propion-Salmeterol 500-50 mcg/dose blister with device Active INHALATION February 01, 2024 11:00pmStart: 02-02-2024 Fluticasone Propion-Salmeterol Active INHALATION February 01, 2024 11:00pm Start: 50-08-2361Zgemcquvcyg Propion-Salmeterol Active INHALATION February 02, 2024 12:00amStart: 09-15-2023 End: 70-46-4563Zoxooteelle Propion-Salmeterol (Wixela Inhub) 500-50 mcg/dose blister with device Discontinued 1 INH INHALATION Twice daily 180 90 3 September 15, 2023 4:51pm October 23, 2023 3:25pmStart: 09-15-2023 End: 97-74-0953Punectkxqac Propion-Salmeterol (Wixela Inhub) 500-50 mcg/dose blister with device Discontinued 1 INH INHALATION Twice daily 180 90 September 15, 2023 3:51pm October 23, 2023 2:25pmStart: 09-15-2023 End: 71-88-1268Fiyjclnteki Propion-Salmeterol (Wixela Inhub) 500-50 mcg/dose blister with device Discontinued 1 INH INHALATION Twice daily 180 90 September 15, 2023 4:51pm October 23, 2023 3:25pmStart: 09-15-2023 End: 11-98-2023Lxnfpgehwpm Propion-Salmeterol (Wixela Inhub) 500-50 mcg/dose blister with device Discontinued 1 INH INHALATION Twice daily September 14, 2023 11:00pm September 15, 2023 3:51pmStart: 09-15-2023 End: 02-95-5641Zzrjbeajjpf Propion-Salmeterol (Wixela Inhub) 500-50 mcg/dose blister with device Discontinued 1 INH INHALATION Twice daily September 15, 2023 12:00am September 15, 2023 4:51pmStart: 71-42-9663Vidoer Inhub 500 mcg-50 mcg inhalation powder Refill(s) 0 Start Date: 08/14/23 Status: Ordered Repeatnumber: 1 Start: 50-08-3537wmtxnmlznyt propion-salmeteroL (Advair Diskus) 500-50 mcg/dose diskus inhaler Inhale 1 puff. 08/14/2023 ActiveStart: 50-18-3906Fomycr 100 mcg- 50 mcg Powder inh, Inhalation, BID, Refill(s) 0 Start Date: 09/11/19 Status: OrderedStart: 85-45-9560urql 1 puff(s) by inhalation twice dailyAdvair Diskus 500-50 MCG/ACT 1 puff Inhalation Twice a day for 90 days Jun, Active Start: 71-34-7809Mldaipudlyr Propion-Salmeterol (Advair Hfa) 230-21 mcg/actuation HFA aerosol inhaler Active 2 INH INHALATION Twice daily May 13, 2018 3:28pmStart: 05-13-2018 End: 25-51-8668Zzdlhsobnzq Propion-Salmeterol (Advair Hfa) 230-21 mcg/actuation HFA aerosol inhaler Discontinued 2INH INHALATION Twice daily 8 May 13, 2018 1:00am October 12, 2023 2:01pmStart: 05-13-2018 End: 70-12-8528Lvajqtnaodr Propion-Salmeterol (Advair Hfa) 230-21 mcg/actuation HFA aerosol inhaler Discontinued 2INH INHALATION Twice daily May 13, 2018 12:00am October 12, 2023 1:01pmStart: 05-13-2018 End: 68-16-3268Xydxbphdkdp Propion-Salmeterol (Advair Hfa) 230-21 mcg/actuation HFA aerosol inhaler Discontinued 2INH INHALATION Twice daily May 13, 2018 1:00am October 12, 2023 2:01pmStart: 05-11-2018 End: 73-34-0057Bkqrzdrpuvb Propion-Salmeterol (Advair Diskus) 500-50 mcg/dose Blister With Device Discontinued 1 INH INHALATION Twice daily May 11, 2018 9:16pm May 13, 2018 2:03pmStart: 05-11-2018 End: 68-45-0535Pzujgrqxcrl Propion-Salmeterol (Advair Diskus) 500-50 mcg/dose Blister With Device Discontinued 1 INH INHALATION Twice daily May 11, 2018 12:00am May 13, 2018 1:03pmStart: 05-11-2018 End: 95-18-3269Viorcvoabpm Propion-Salmeterol (Advair Diskus) 500-50 mcg/dose Blister With Device Discontinued 1 INH INHALATION Twice daily May 11, 2018 1:00am May 13, 2018 2:40kxUsllvlmemtp-Cppgsdfvg-Bfuxegpi (20 sources)Start: 10-23-2023 End: 76-09-6506Rirjbokjagm-Umeclidin-Vilanter (Trelegy Ellipta) 200-62.5-25 mcg blister with device Discontinued 1INH INHALATION Daily 180 4 October 23, 2023 12:00am January 02, 2025 3:06pm Bullous emphysema Emphysema, unspecified Rinse after useStart: 10-23-2023 End: 88-10-7854Yaasppzzpyk-Umeclidin-Vilanter (Trelegy Ellipta) 200-62.5-25 mcg blister with device Discontinued 1INH INHALATION Daily 180 October 23, 2023 12:00am January 02, 2025 3:06pm Rinse after useStart: 90-06-3417Asfri: 57-18-7156Jobooxsqnho-Umeclidin-Vilanter (Trelegy Ellipta) 200-62.5-25 mcg blister with device Active 1 INH INHALATION Daily 180 October 23, 2023 12:00am Rinse after use Complies with drug therapyStart: 10-23-2023 Kkpjuzssiso-Llwaewuel-Toyskvzw (Trelegy Ellipta) 200-62.5-25 mcg blister with device Active 1 INH INHALATION Daily 180 October 22, 2023 11:00pm Rinse after use Start: 71-73-2868Sygrafzhqqe-Umeclidin-Vilanter (Trelegy Ellipta) 200-62.5-25 mcg blister with device Active 1 INH INHALATION Daily 180 October 23, 2023 12:00am Rinse after frribetddpzhpx-mjufxello-hjhftblb (TRELEGY-ELLIPTA) 200-62.5-25 mcg blister with device (11 sources)Start: 10-23-2023 End: 17-49-2669aehvhwmqfun-umeclidin-vilanter (TRELEGY-ELLIPTA) 200-62.5-25 mcg blister with device Lczgdhghkpq-Bptcwnzwf-Hvcibpkp (Trelegy Ellipta) 200-62.5-25 mcg blister with device Active 1 INH INHALATION [id number] October 22, 2023 11:00pm Rinse after use 10/23/2023 01/15/2025 Discontinued (Therapy completed)Start: 93-28-7954wtimpwdhavi-umeclidin-vilanter (TRELEGY-ELLIPTA) 200-62.5-25 mcg blister with device Dpdvfpilzen-Bkmdjkdtx-Svxjesfi (Trelegy Ellipta) 200-62.5-25 mcg blister with device Active 1 INH INHALATION [id number] October 22, 2023 11:00pm Rinse after use 10/23/2023 Activefurosemide 40 mg oral tablet (20 sources)Loop DiureticStart: 01-09-2025 End: 97-98-5505sumg 1 tablet by mouth once daily as needed for edemaStart: 73-94-5173umhd 1 tablet by mouth twice dailyFurosemide 20 mg tablet Active 20 MG PO Twice daily June 03, 2024 1:00am Complies with drug therapyStart: 03-19-2024 End: 85-76-2741mmwa 1 tablet by mouth twice dailyFurosemide 20 mg Tablet Discontinued 20 MG PO BID@0800,1600 90 30 3 March 19, 2024 1:00am April 02, 2024 1:34pmStart: 08-09-2021 End: 44-72-7237rmpv 1 tablet by mouth once daily as needed for edemaFurosemide 20 mg tablet Discontinued 20 MG PO Daily as needed for edema June 03, 2024 1:00am January 09, 2025 11:58am Right leg edemaStart: 05-13-2018 End: 17-58-7326aces 1 tablet by mouth once dailyFurosemide (Lasix) 40 mg tablet Discontinued 40 MG PO Daily 30 May 13, 2018 1:00am February 10, 2019 12:10amgadoterate meglumine (Dotarem) 0.5 mmol/mL contrast injection 25 mL (1 source)Start: 01-28-2025 End: 29-83-3148kiwmkx 25 mL intravenously once25 mL, intravenous, Once in imaging, Starting on Mon01/28/25 at 1007, For 1 dose, Administer undiluted as rapid I.V. bolus faeihvmjf93 hr guaiFENesin 600 mg extended release oral tablet (9 sources)Start: 11-12-2024 End: 42-86-2240nlsk 1 tablet by mouth twice dailyGuaifenesin 600 mg Tablet Extended Release 12hr Discontinued 1200 MG PO Twice daily 20 5 0 November 12, 2024 12:00am January 02, 2025 3:06pmmagnesium hydroxide 80 mg/ml oral suspension (14 sources)Start: 07-09-2024 End: 10-06-5550myxu 1 mL by mouth once daily as needed for constipationMagnesium Hydroxide (Milk Of Magnesia) 400 mg/5 mL suspension Discontinued 5 ML PO Daily as needed for constipation November 11, 2024 12:00am January 02, 2025 3:07pm magnesium oxide 400 mg oral tablet (20 sources)Start: 03-27-2024 End: 12-10-6591ipqu 1 tablet by mouth once dailyMagnesium Oxide 400 mg (241.3 mg magnesium) tablet Discontinued 400 MG PO Daily June 03, 2024 1:00am January 05, 2025 3:03ammenthol 0.04 mg/mg topical gel (14 sources)Start: 07-12-2024 End: 46-88-7185Kjnmxjk (Biofreeze (Menthol)) 4 % gel Discontinued 1 APPLIC TOPICAL Daily as needed for pain November 11, 2024 12:00am January 05, 2025 3:03ammethylPREDNISolone 4 mg oral tablet (20 sources)CorticosteroidStart: 05-13-2018 End: 21-17-2453hwcs 1 tablet by mouth onceMethylprednisolone (Medrol (Man)) 4 mg tablets,dose pack Discontinued 0 PO per package directions 21 May 13, 2018 1:00am July 06, 2018 1:34pm PO PER PKG DIRMultiple Vitamins Oral Tablet (8 sources)Start: 97-11-2408Nuegqhvq Vitamins Oral Tablet Quantity: 0 Refills: 0 Ordered: 15-Dec-2016 DO Start : 15-Dec-2016 ActivePantoprazole 40 mg tablet,delayed release (DR/EC) (7 sources)Start: 02-18-2024 End: 24-28-1544pdaw 1 tablet by mouth once daily at breakfastPantoprazole 40 mg tablet,delayed release (DR/EC) Discontinued 0 .ROUTE .COMPLEX February 18, 2024 7:41pm July 09, 2024 11:25am TAKE 1 TABLET BY MOUTH ONCE DAILY ON AN EMPTY STOMACH 30 MINUTES prior to BREAKFASTStart: 02-18-2024 End: 54-10-2706sgzt 1 tablet by mouth once daily at breakfastPantoprazole 40 mg tablet,delayed release (DR/EC) Discontinued 0 .ROUTE .COMPLEX February 18, 2024 6:41pm July 09, 2024 10:25am TAKE 1 TABLET BY MOUTH ONCE DAILY ON AN EMPTY STOMACH 30 MINUTES prior to BREAKFASTStart: 49-35-5519zrek 1 tablet by mouth once daily at breakfastPantoprazole 40 mg tablet,delayed release (DR/EC) Active 0 .ROUTE .COMPLEX February 18, 2024 6:41pm TAKE 1 TABLET BY MOUTH ONCE DAILY ON AN EMPTY STOMACH 30 MINUTES prior to BREAKFASTpolysaccharide iron complex 150 mg oral capsule (20 sources)Start: 05-11-2018 End: 60-71-3315Drmimzhcbftepy Iron Complex (Ferrex 150) 150 mg iron Capsule Discontinued 150 MG PO Daily May 11, 2018 1:00am February 10, 2019 12:11amprednisoLONE acetate 10 mg/ml ophthalmic suspension (9 sources)CorticosteroidStart: 11-11-2024 End: 99-98-9876eier 1 drop(s) into the eye(s) once dailyPrednisolone Acetate 1 % drops,suspension Discontinued 1 DROPS EYE-LEFT Daily November 11, 2024 12:00am March 13, 2025 9:38am ShinglesStart: 89-96-6345dlmv 1 drop(s) into the eye(s) four times dailyPrednisolone Acetate 1 % drops,suspension Active 1 DROPS EYE-LEFT Four times daily November 11, 2024 12:00am Complies with drug therapy predniSONE 10 mg oral tablet (20 sources)Start: 02-19-2025 End: 23-69-8852Gjrobuxibo 10 mg tablet Discontinued 10 MG PO As Directed 40 0 February 19, 2025 12:00am March 13, 2025 9:38am Take 4 pills for 4 days Take 3 pills for 4 days Take 2 pills for 4 days Take 1 pill for 4 days then stop Start: 01-09-2025 End: 14-57-2093Udqzidbxgw 10 mg tablet Discontinued 10 MG PO As Directed 40 0 January 09, 2025 12:00am February 16, 2025 1:50am Take 4 pills for 4 days Take 3 pills for 4 days Take 2 pills for 4 days Take 1 pill for 4 days then stop Start: 11-12-2024 End: 86-17-2173Srzluphqhj 10 mg tablet Discontinued 10 MG PO Daily 39 0 November 12, 2024 12:00am January 02, 2025 3:08pm take 60mg (6 tabs aday) for 3 days, then 40mg (4tabs) for 3 days, then 20mg (2tabs) for 3 days, then 10mg (1tab) for 3 days.Start: 02-10-2019 End: 99-24-7955imvt 5 mg by mouth once dailyPrednisone 20 mg tablet Discontinued 5 MG PO Daily February 10, 2019 12:15am September 08, 2023 3:45pmStart: 02-10-2019 End: 10-23-6903lker 5 mg by mouth once dailyPrednisone Discontinued 5 MG PO Daily February 09, 2019 11:15pm September 08, 2023 2:45pmStart: 07-06-2018 End: 45-14-4325Cwnafanseg 20 mg tablet Discontinued 20 MG PO As Directed 11 July 06, 2018 1:00am 2018 12:07am administer with food or milk. Take 40mg for 3 days,then 20 mg for 3 days, then 10 mg for 3 days, then continue 5 mg as you used to takeStart: 11-18-2010 End: 76-84-1626qlrf 1 tablet by mouth once dailyPrednisone 5 mg tablet Discontinued 5 MG PO Daily September 08, 2023 12:00am February 28, 2024 11:35pm regadenoson (Lexiscan) injection 0.4 mg (1 source)Start: 06-12-2024 End: .4 mg, intravenous, Once, On Mon06/12/24 at 1330, For 1 doseTc- 99m tetrofosmin (Myoview) injection 10 millicurie (1 source)Start: 06-12-2024 End: 48-36-653494 millicurie, intravenous, Once in imaging, Starting on [...] mg inhalation powder (20 sources)AnticholinergicStart: 05-11-2018 End: 91-42-5964ntjl 1 capsule by inhalation once dailyTiotropium Ashley (Spiriva With Handihaler) 18 mcg Capsule, W/Inhalation Device Discontinued 1 CAP INHALATION Daily May 11, 2018 1:00am September 08, 2023 3:46pmvalACYclovir 1000 mg oral tablet (10 sources)Herpesvirus Nucleoside Analog DNA Polymerase Inhibitor, Herpes Simplex Virus Nucleoside Analog DNA Polymerase Inhibitor, Herpes Zoster Virus Nucleoside Analog DNA Polymerase InhibitorStart: 01-02-2025 End: 13-73-2632Nispkwmrjeql 1 gram tablet Discontinued 1000 MG PO Twice daily January 02, 2025 12:00am March 13, 2025 9:39am shingles in eyetake 1 tablet by mouth twice dailyvalACYclovir (Valtrex) 1 gram tablet Take 1 tablet (1,000 mg) by mouth 2 times a day. Activevalsartan 40 mg oral tablet (20 sources)Angiotensin 2 Receptor BlockerStart: 01-09-2025 End: 80-79-0361asul 1 tablet by mouth once dailyValsartan 40 mg Tablet Discontinued 40 MG PO Daily January 09, 2025 12:00am January 16, 2025 8:34pmStart: 05-17-2024 End: 28-78-0385Vxoncnylu 40 mg tablet Discontinued 20 MG PO Daily May 17, 2024 12:32pm June 11:25am On Hold: NoneStart: 04-30-2024 End: 55-33-4369Lmozbjtxz 40 mg tablet Discontinued 20 MG PO Twice daily May 06, 2024 2:28pm 2024 12:33pm Problems Active Problems Problem ClassificationProblemDateDocumented DateEpisodic/ChronicAbdominal hernia (9 sources)Hiatal hernia; Translations: [Diaphragmatic hernia without obstruction or gangrene]EpisodicAbdominal pain (20 sources)Abdominal pain; Translations: [Unspecified abdominal pain]03-08-2024 EpisodicAcute myocardial infarction (16 sources)Myocardial infarction; Translations: [Non-ST elevation (NSTEMI) myocardial infarction]Onset: [id number]kdjkptbqdj/social admission (3 sources)Drug indicated; Translations: [Long-term current use of steroids] EpisodicAlcohol-related disorders (20 sources)Nondependent alcohol abuse; Translations: [Nondependent alcohol abuse, unspecified pattern of use]Onset: 870580-71-7435PiootrtHbtdimb on above: not anymore Allergic reactions (1 source)Allergic bronchopulmonary aspergillosis; Translations: [Allergic bronchopulmonary aspergillosis]Onset: 88-73-7486XqmxiqeDojpmtf dysrhythmias (20 sources)Nonsustained paroxysmal ventricular tachycardia; Translations: [Nonsustained paroxysmal ventriculartachycardia]Onset: 698036-85-9162 ChronicChronic obstructive pulmonary disease and bronchiectasis (20 sources)Chronic obstructive lung disease; Translations: [Chronic airway obstruction, not elsewhere classified]Onset: 2021 Resolved: 234171-69-4417CgwzruiJsiwgexcgovup of surgical procedures or medical care (1 source)Drug-induced hypotension; Translations: [Hypotension due to drugs] 58-21-7683HddpbutzLbegzczrqm heart failure; nonhypertensive (20 sources)Chronic systolic heart failure; Translations: [Chronic systolic (congestive) heart failure]Onset: 047353-46-4109UiukrorGpkmxzp on above: Echo: LVEF 45-50%, normal RV [...] segment elevation myocardial infarction; Translations: [Old myocardial infarction]89-56-5278WakrvueIdwwyawxbp and other anemia (2 sources)Chronic anemia; Translations: [Anemia in other chronic diseases classified elsewhere]79-64-2078ZmwvcicNtfhvxzdxq and other anemia (1 source)Anemia due to chronic blood loss; Translations: [Iron deficiency anemia secondary to blood loss (chronic)]Onset: 60-72-0714LivdupkIujlyikjfn and other anemia (20 sources)Anemia; Translations: [Anemia, unspecified]28-25-0279Xajqjmfl Deficiency and other anemia (2 sources)Anemia, unspecified; Translations: [Anemia, unspecified]Onset: 10-07-2021 Resolved: 00-89-3274MooumybbCytugboyje and other anemia (9 sources)Iron deficiency anemia; Translations: [Iron deficiency anemia, unspecified]EpisodicDisorders of lipid metabolism (1 source)Dyslipidemia; Translations: [Hyperlipidemia, unspecified]03-27-2024 ChronicDiverticulosis and diverticulitis (9 sources)Diverticular disease; Translations: [Diverticulosis of intestine, part unspecified, without perforation or abscess without bleeding]Chronic Esophageal disorders (10 sources)Gastro-esophageal reflux disease with esophagitis; Translations: [Gastroesophageal reflux disease with esophagitis without hemorrhage]Onset: 227240-55-9849SjtpvoyLvgfdseow hypertension (20 sources)Hypertensive disorder; Translations: [Essential (primary) hypertension]Onset: 512737-99-2749UakzhmnOhzei and electrolyte disorders (20 sources)Hyponatremia; Translations: [Hypo-osmolality and hyponatremia]Onset: 453691-36-1910HvnywxrrQttyqgpypltzkalo hemorrhage (20 sources)Rectal hemorrhage; Translations: [Hemorrhage of anus and rectum] 96-17-9761OccojrrdOswkcxztuyfci symptoms and ill-defined conditions (5 sources)Urinary rndkuhlnquwe85-55-3668CaehucjOnehqanidhjbs symptoms and ill- defined conditions (20 sources)Retention of urine; Translations: [Retention of urine, unspecified] Onset: 91-36-8072QfdaiguwFhys and other crystal arthropathies (6 sources)Gout; Translations: [Primary gout]Onset: 004374-05-7551Ctrjhho Hemorrhoids (11 sources)Internal hemorrhoids; Translations: [Other hemorrhoids]02-10-2019 EpisodicHyperplasia of prostate (20 sources)Benign prostatic hypertrophy with outflow obstruction; Translations: [Benign prostatic hyperplasia with lower urinary tract symptoms]Onset: 86-03-4256CzrmnenCgbxhnmz disorders (20 sources)Pulmonary sarcoidosis; Translations: [Sarcoidosis]Onset: 11-11-2015 Resolved: 812451-28-9981TmuempwOifqkgdpaopxf and screening for infectious disease (1 source)Vaccination given; Translations: [Encounter for immunization]Episodic Mood disorders (5 sources)Depressive lkzfemfq87-87-3547SwjbvbkAdoqqdn (9 sources)Aspergillosis; Translations: [Aspergillosis, unspecified]Episodic Nutritional deficiencies (3 sources)Deficiency of macronutrients; Translations: [Unspecified severe protein-calorie malnutrition]Onset: 266385-70-2388SfgqlfbRclhnmrlo or stenosis of precerebral arteries (20 sources)Right carotid artery stenosis; Translations: [Occlusion and stenosis of right carotid artery]Onset: 799899-93-7519OhwdoxyFggrxge on above:CTA: 90% right ICA - 02/2024Osteoarthritis (1 source)Localized, primary osteoarthritis of the pelvic region and thigh; Translations: [Unilateral primaryosteoarthritis, right hip]ChronicOther aftercare (4 sources)Other technician terminal and repeater (current) drug therapy; Translations: [OTH SALES CONSULTANT INSURANCE CURRENT DRUG THERAPY]Onset: 90-18-6052HxcbhnezPehic aftercare (1 source)Long-term current use of drug therapy; Translations: [Other fci (current) drug therapy]EpisodicOther aftercare (20 sources)Drug therapy finding; Translations: [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]67-39-0023UbotmniySmigp aftercare (11 sources)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; Translations: [Long-term (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]Onset: 519405-93-1538PhlrxpgjCtvjn aftercare (4 sources)Long-term current use of anticoagulant; Translations: [group home (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]Onset: 490448-00-8850TivlppzvTdqms and ill-defined heart disease (20 sources)Mural thrombus of left ventricle; Translations: [Acute myocardial infarction of unspecified site, episode of care unspecified]Onset: 07-26-2023 56-00-8635MndqkwvMjgep and ill-defined heart disease (20 sources)Diastolic dysfunction; Translations: [Heart disease, unspecified] Onset: 004623-38-9737HwminszJfjui and ill-defined heart disease (8 sources)Left ventricular systolic dysfunction; Translations: [Other ill- defined heart diseases]70-77-5179RrojgwzEttbu and ill-defined heart disease (8 sources)Other ill-defined heart diseases; Translations: [Heart disease, unspecified]Onset: 707120-17-8033LixshkbKtfxq and ill-defined heart disease (10 sources)Mild left ventricular systolic dysfunction; Translations: [Other ill-defined heart diseases]28-60-2157ZmxqepdHpbmt and ill-defined heart disease (14 sources)Takotsubo cardiomyopathy; Translations: [Takotsubo syndrome]Onset: 539526-10-6671GfmyzyqUmmee and ill-defined heart disease (4 sources)Left ventricular cardiac dysfunction; Translations: [Heart disease, unspecified]Onset: 582123-53-0786YonxdugGsxmf and ill-defined heart disease (3 sources)Takotsubo syndrome; Translations: [Takotsubo syndrome]Onset: 64-42-8624IwipqpbUmkih and ill-defined heart disease (4 sources)Intracardiac thrombosis, not elsewhere classified; Translations: [Intracardiac thrombosis, not elsewhere classified]Onset: 28-80-4758HkwgkwwSebrr and unspecified benign neoplasm (20 sources)Cerebellopontine angle tumor; Translations: [Benign neoplasm of cranial nerves]Onset: 733685-26-9955GheepgoBdbct and unspecified benign neoplasm (10 sources)Benign neoplasm of cranial nerves; Translations: [Benign neoplasm of cranial nerves]Onset: 72-64-3405PjhpnvlAfvgc and unspecified benign neoplasm (20 sources)Acoustic neuroma; Translations: [Benign neoplasm of cranial nerves] 50-53-0337KvvpnxeAjrhb and unspecified benign neoplasm (20 sources)History of polyp of colon; Translations: [Personal history of colonic polyps]25-54-2669HkgexlpaIdjgk and unspecified benign neoplasm (3 sources)Personal history of colonic polyps; Translations: [Personal history of colonic polyps]Onset: 10-07-2021 Resolved: 91-51-2929KgceejllZqdou and unspecified benign neoplasm (9 sources)Benign neoplasm of cecum; Translations: [Benign neoplasm of cecum] EpisodicOther and unspecified benign neoplasm (1 source)Benign neoplasm of sigmoid colon; Translations: [Benign neoplasm of sigmoid colon]EpisodicOther circulatory disease (9 sources)Low blood pressure; Translations: [Hypotension, unspecified]Onset: 349113-13-4074BllxzhrwDcpfk circulatory disease (4 sources)Hypotension, unspecified; Translations: [Hypotension, unspecified] 88-50-3878SrypzkgqFywvs connective tissue disease (5 sources)Muscle weakness; Translations: [Muscle weakness (generalized)]Onset: 762975-39-3427TqeokzcnNecsx connective tissue disease (6 sources)Muscle pain; Translations: [Myalgia, unspecified site]02-16-2025 EpisodicOther diseases of kidney and ureters (1 source)Urinary tract obstruction; Translations: [Other obstructive and reflux uropathy]Onset: 86-78-9602AqpebvrvLtvvh ear and sense organ disorders (20 sources)Asymmetrical sensorineural hearing loss; Translations: [Sensorineural hearing loss, asymmetrical]Onset: 270362-35-9139Igqcrte Other ear and sense organ disorders (20 sources)Bilateral hearing loss; Translations: [Mixed hearing loss, bilateral]Onset: 512829-60-4272MffzsxmIbrwz endocrine disorders (4 sources)Syndrome of inappropriate secretion of antidiuretic hormone; Translations: [SYNDROME INAPPROPRIATE SEC ADH]Onset: 09-00-0044YufwbanQzfdr endocrine disorders (1 source)Syndrome of inappropriate vasopressin secretion; Translations: [Syndrome of inappropriate secretionof antidiuretic hormone]ChronicOther endocrine disorders (1 source)Hypercortisolism; 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]Onset: 09-18-2015 ChronicOther fractures (14 sources)Compression fracture of thoracic spine; Translations: [Wedge compression fracture of unspecified thoracic vertebra, initial encounter for closed fracture]78-43-2704VnehrbfcZlydv fractures (5 sources)Fracture of seventh thoracic vertebra; Translations: [Wedge compression fracture of T7-T8 vertebra,subsequent encounter for fracture with routine healing]Onset: 924341-39-7046FzmlyandRtvxg fractures (5 sources)Closed fracture thoracic vertebra, wedge; Translations: [Wedge compression fracture of T7-T8 vertebra, subsequent encounter for fracture with routine healing]Onset: 536221-57-4432AuuunfzsDbizd hematologic conditions (18 sources)H/O: Disorder; Translations: [Personal history of diseases of the blood and blood-forming organs and certain disorders involving the immune mechanism]53-80-6906DueribyhRzjep hematologic conditions (1 source)Personal history of diseases of the blood and blood-forming organs and certain disorders involving the immune mechanism; Translations: [Personal history of diseases of the blood and blood-forming organs and certain disorders involving the immune mechanism]Onset: 60-92-0046MmaickcmUeuam infections; including parasitic (1 source)H/O: infectious disease; Translations: [Personal history of other infectious and parasitic diseases]EpisodicOther infections; including parasitic (20 sources)Personal history of other infectious and parasitic diseases; 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]Onset: 944274-81-4114AsfyuybwEyuti lower respiratory disease (9 sources)Post-inflammatory pulmonary fibrosis; Translations: [Other interstitial pulmonary diseases with fibrosis in diseases classified elsewhere] ChronicOther lower respiratory disease (1 source)Other interstitial pulmonary diseases with fibrosis in diseases classified elsewhereOnset: 2021 Resolved: 22-78-4710IvrpdqmUhdpr lower respiratory disease (1 source)Parietoalveolar pneumopathy; Translations: [Interstitial pulmonary disease, unspecified]ChronicOther lower respiratory disease (1 source)Diffuse interstitial pulmonary fibrosis; Translations: [Other interstitial pulmonary diseases with fibrosis in diseases classified elsewhere] Onset: 97-22-5308YbyapjcKsyzy lower respiratory disease (8 sources)Disorder of lung; Translations: [Respiratory abnormality, unspecified]EpisodicOther lower respiratory disease (7 sources)Shortness of breath; Translations: [Shortness of breath]Onset: 919391-06-0284MuvxnitgXekqq lower respiratory disease (8 sources)Hypoxemia; Translations: [Hypoxemia]89-47-3346YunmnnjsMsvcj lower respiratory disease (20 sources)Dyspnea; Translations: [Other forms of dyspnea]83-81-7099Embhnyai Other nervous system disorders (20 sources)Disorder of brain; Translations: [Encephalopathy, unspecified]Onset: 275200-43-8166XnydzhwVrngm nervous system disorders (8 sources)Encephalopathy, unspecified; Translations: [Encephalopathy, unspecified]Onset: 404716-94-2076PfuvslbLlgxi non-traumatic joint disorders (1 source)Pain in right hip joint; Translations: [Pain in right hip]Episodic Other nutritional; endocrine; and metabolic disorders (6 sources)Decreased body mass index; Translations: [Body mass index (BMI) 19.9 or less, adult]Onset: 422462-67-1586RmxnmahoJbkuz nutritional; endocrine; and metabolic disorders (2 sources)Body mass index (BMI) 19.9 or less, adult; Translations: [Body mass index (BMI) 19.9 or less, adult]Onset: 38-90-0753OcoqfqmbEgvw-; endo-; and myocarditis; cardiomyopathy (except that caused by tuberculosis or sexually transmitted disease) (20 sources)Cardiomyopathy; Translations: [Other primary cardiomyopathies]Onset: 498938-90-5234YsuslbtYqeyhqv on above:Echo: LVEF 45-50%, normal RV size/function, mild aortic root dilatation 4.0 cm - 02/2024MRI: cardiac sarcoidosis - 2015,LHC: normal coronary circulation - 2016,Pneumonia (except that caused by tuberculosis or sexually transmitted disease) (4 sources)Pneumonia, unspecified organism; Translations: [Infective pneumonia] Onset: 84-75-5089PlyrbakiUcymrkhy codes; unclassified (8 sources)History finding; Translations: [Other [...] sources)Altered mental status; Translations: [Altered mental status, unspecified]70-36-1331IqawxuqqZluqnxdh codes; unclassified (4 sources)Chews tobacco ; Translations: [Tobacco use]Onset: 01-15-2025 99-53-8744XybefdymYsyexrst codes; unclassified (2 sources)Tobacco use; Translations: [Tobacco use]Onset: 78-46-6951Covplpig Respiratory failure; insufficiency; arrest (adult) (20 sources)Chronic hypoxemic respiratory failure; Translations: [Chronic respiratory failure with hypoxia]Onset: 290439-07-8345IkpdktzBtqyanrffnm failure; insufficiency; arrest (adult) (2 sources)Acute respiratory failure; Translations: [Acute respiratory failure, unspecified whether with hypoxia or hypercapnia]86-84-2747OjguyymwSrkzcfe detachments; defects; vascular occlusion; and retinopathy (1 source)Venous retinal branch occlusion; Translations: [Tributary (branch) retinal vein occlusion, right eye, stable]ChronicSpondylosis; intervertebral disc disorders; other back problems (12 sources)Lumbar spondylosis; Translations: [Spondylosis without myelopathy or radiculopathy, lumbar region]Onset: 51-22-0760EkyicriEpjwrgugi-related disorders (20 sources)Nicotine dependence, other tobacco product, uncomplicated; Translations: [Nicotine dependence, cigarettes, uncomplicated]Onset: 11-22-2021 Resolved: 805222-99-8266WkdfdwqAddilhavqmhg (2 sources)COUGH, UNSPECIFIED; Translations: [COUGH, UNSPECIFIED]Onset: 82-36-6863Hwftaxdcvlck (1 source)CONTACT W/AND (SUSP) EXPOS COVID-19; Translations: [CONTACT W/AND (SUSP) EXPOS COVID-19]Onset: 26-84-1713Ylcddgnitkdd (1 source)Long-term current use of steroid; Translations: [Long-term (current) use of steroids]Onset: 28-94-7676Tzgehqbdojro (1 source)Other certain sequelae of myocardial infarction, not elsewhere classified; Translations: [Other certain sequelae of myocardial infarction, not elsewhere classified]Onset: 82-02-7561Xlczejtodsgh (14 sources)A [facility] screening has identified you as FRAIL [...] Four Ways to Beat the Frailty Risk [email or web address] [email or web address]-dloj-[email or web address] [email or web address] (12 sources)Follow-up with your Primary Care Provider, call office to reschedule if needed.Unclassified (7 sources)You have been scheduled for a follow up appointment for the following date and time, please call to reschedule if needed. Past or Other Problems Problem ClassificationProblemDateDocumented DateEpisodic/ChronicAcute posthemorrhagic anemia (1 source)Acute posthemorrhagic anemia; Translations: [Acute posthemorrhagic anemia]Onset: 70-60-1153ViybavvjOrfabbwlke associated with dizziness or vertigo (20 sources)Vertigo; Translations: [Dizziness and giddiness]Onset: 07-26-2023 85-83-6616GseqgxwqR Codes: Fall (19 sources)Fall; Translations: [Unspecified fall, initial encounter]Onset: 519790-62-5391NmywharjRlpkjpryjl disorders (3 sources)Esophageal disorders; Translations: [Gastro-esophageal reflux disease with esophagitis, without bleeding]Onset: 49-32-1165Hawscnr and fatigue (20 sources)Other fatigue; Translations: [Fatigue]Onset: EpisodicNonspecific chest pain (1 source)Chest pain, unspecified; Translations: [CHEST PAIN UNSPECIFIED]Onset: 64-14-1397GbdgpevlFwnjp acquired deformities (1 source)Acquired deformity of head; Translations: [Other acquired deformity of head] Resolved: 03-22-0246TlqywpflPyakn aftercare (19 sources)Taking high risk medication; Translations: [Other technician terminal and repeater (current) drug therapy]Onset: 737074-75-4685NspzxjzrMpsyh connective tissue disease (3 sources)Other specified soft tissue disorders; Translations: [OTHER SPEC SOFT TISSUE DISORDERS]Onset: 08-26-1734YtylmxoqOxize diseases of veins and lymphatics (1 source)Peripheral venous insufficiency; Translations: [Unspecified venous (peripheral) insufficiency]Onset: 35-66-0494IzinjabiCrstj fractures (5 sources)Wedge compression fracture of unspecified thoracic vertebra, initial encounter for closed fracture;Translations: [Closed fracture of dorsal [thoracic] vertebra without mention of spinal cord injury]Onset: 07-03-2024 02-59-7911NfbziiedUpsum lower respiratory disease (3 sources)Hemoptysis; Translations: [Hemoptysis] Resolved: 726984-17-3524NkfarwiqAxevo nervous system disorders (20 sources)Impairment of balance; Translations: [Abnormality of gait]Onset: 897639-27-2236OskmkhsgApvqs screening for suspected conditions (not mental disorders or infectious disease) (20 sources)Raised prostate specific antigen; Translations: [Elevated prostate specific antigen [PSA]]Onset: 79-46-8673AssjvhrmRtmts upper respiratory infections (1 source)Acute upper respiratory infection, unspecified; Translations: [ACUTE UP RESPIRATORY INFECTION UNS]Onset: 62-22-7930ChjihtrrGiylirwm codes; unclassified (20 sources)Body mass index 20-24 - normal; Translations: [Body Mass Index between 19-24, adult]Onset: 127927-51-0052HapthvdfHwaegyxj codes; unclassified (1 source)Edema; Translations: [Edema]Onset: 97-07-1053TvmdgruxTonjpkjc codes; unclassified (9 sources)Altered mental status, unspecified; Translations: [Altered mental status]Onset: 980920-96-2617BarbxrvnNejsevfc codes; unclassified (2 sources)Body mass index (BMI) 21.0-21.9, adult; Translations: [Body mass index (BMI) 21.0-21.9, adult]Onset: 15-96-6594IaxcryjmQsumulnf codes; unclassified (2 sources)Body mass index (BMI) 20.0-20.9, adult; Translations: [Body mass index (BMI) 20.0-20.9, adult]Onset: 15-11-2158PaqeycroMqtohsriopbs (1 source)COUGH, UNSPECIFIED; Translations: [COUGH, UNSPECIFIED]Onset: 80-78-6973Bgnpkiwzplyy (1 source)Never smoked tobacco; Translations: [Never a smoker]Unclassified (15 sources)Onset: 10-13-2023 Resolved: 040360-06-9615Zmnxfct tract infections (20 sources)Urinary tract infectious disease; Translations: [Urinary tract infection, site not specified]Onset: 37-89-9855Ckfbmlvf Results Test NameValueInterpretationReference RangeFacilityBasic Metabolic Panelon 92-24-1259Idhgt gap [Moles/Vol]11.1 mmol/LNormal6.0-15.0The [facility] Physician GroupComment on above:Performed By: #### BMP, CBC ####[place] [address] USACalcium [Mass/Vol]9.4 mg/dLNormal 8.6-10.3The [facility] Physician GroupComment on above:Performed By: #### BMP, CBC ####[place] [address] [place] Chloride [Moles/Vol]104 mmol/RIhghez49-969Bmv [facility] Physician GroupComment on above:Performed By: #### BMP, CBC ####[place] [id number] USACO2 [Moles/Vol]26.3 mmol/DHxefor89.0-31.0The [facility] Physician GroupComment on above:Performed By: #### BMP, CBC ####[place] [id number] [place] Creatinine [Mass/Vol]0.99 mg/dLNormal0.70-1.30The [facility]ician Group Comment on above:Performed By: #### BMP, CBC ####[place] [id number] USACreatinine Clr Calc Ksmgdsfc65.55 NormalThe [facility] Physician [facility] HospitalComment on above:Result Comment: PERFORMED BY: [facility] [address] [facility] [address]ENTERMargeHEATHER V[place] [id number] PATHOLOGIST [employer]PER[employer] REGGIE CASTANEDA M.D.Performed By: #### BMP, CBC ####[place] [id number] USAGFR/1.73 sq M.predicted MDRD (S/P/Bld) [Vol rate/Area]mL/min/{1.73_m2}NormalThe [facility] Physician GroupComment on above:Performed By: #### BMP, CBC ####[address] [address] USAGlucose [Mass/Vol]99 mg/kHIetxnl05-466Yqa [facility] Physician GroupComment on above:Result Comment: Random Glucose Reference Range is dependent on time and content of last meal. Glucose of more than 200 mg/dL in a nonstressed, ambulatory subject supports the diagnosis of Diabetes Mellitus. ADA recommended reference rangePerformed By: #### BMP, CBC ####[address] [address] USAPotassium [Moles/Vol] 4.4 mmol/LNormal3.5-5.1The [facility] Physician GroupComment on above:Performed By: #### BMP, CBC ####[place] [address] USASodium [Moles/Vol]137 mmol/AVkccbe242-338Pko [facility] Physician GroupComment on above:Performed By: #### BMP, CBC ####[address] [address] USAUrea nitrogen [Mass/Vol]28 mg/dLHigh 7-25The [facility] Physician GroupComment on above:Performed By: #### BMP, CBC ####[place] [id number] [facility] Complete Blood Count Auto Diffon 96-58-1942Urrzhnqjq (Bld) [#/Vol]0.0 10*3/uL Normal0.0-0.2The [facility] Physician GroupComment on above:Result Comment: PERFORMED BY: [facility] [address] [facility]ENTERMargeHEATHER [place] [id number] PATHOLOGIST [employer] SUPERVISOR REGGIE CASTANEDA M.D.Performed By: #### BMP, CBC ####[place] [id number] USABasophils/100 WBC (Bld)0.1 %Normal.The [facility] Physician GroupComment on above:Performed By: #### BMP, CBC ####[address] Eosinophils (Bld) [#/Vol]0.0 10*3/uLNormal0.0-0.45The [facility] Physician [facility] Comment on above:Performed By: #### BMP, CBC ####[place] [address] USAEosinophils/100 WBC (Bld)0.0 %Normal. The [facility] Physician GroupComment on above:Performed By: #### BMP, CBC ####[address] Erythrocyte distribution width (RBC) [Ratio]21.5 %High12.0-14.8The [facility] Physician GroupComment on above:Performed By: #### BMP, CBC ####[place] [address] USAHematocrit (Bld) [Volume fraction]29.4 %Low38.8-50.0The [facility] Physician GroupComment on above:Performed By: #### BMP, CBC ####[place] [address] USAHemoglobin (Bld) [Mass/Vol]9.6 g/dLLow13.0-17.0The [facility] Physician GroupComment on above:Performed By: #### BMP, CBC ####[place] [address] [place] Lymphocytes (Bld) [#/Vol]0.7 10*3/uLLow1.00-4.8The [facility]ician Group Comment on above:Performed By: #### BMP, CBC ####[place] [id number] USALymphocytes/100 WBC (Bld)5.1 %Normal. The [facility] Physician GroupComment on above:Performed By: #### BMP, CBC ####[place] [address] USAMCH (RBC) [Entitic mass]29.2 pqBmefcv28.5-35.2The [facility] Physician GroupComment on above:Performed By: #### BMP, CBC ####[place] [address] USAMCV (RBC) [Entitic vol]89.5 aZHsbtdl58.5-101 The [facility] Physician GroupComment on above:Performed By: #### BMP, CBC ####[place] [address] USAMean Corpuscular HGB Conc32.7 g/uTDibkvc33.5-35.6The [facility] Physician GroupComment on above:Performed By: #### BMP, CBC ####[place] [address] USAMonocytes (Bld) [#/Vol]0.5 10*3/uLNormal 0.0-0.8The [facility] Physician GroupComment on above:Performed By: #### BMP, CBC ####[place] [address] [place] Monocytes/100 WBC (Bld)3.4 %Normal.The [facility] Physician GroupComment on above:Performed By: #### BMP, CBC ####[place] [address] USANeutrophils (Bld) [#/Vol]13.5 10*3/uLHigh1.8-7.7The [facility] Physician GroupComment on above:Performed By: #### BMP, CBC ####[place] [address] [place] Neutrophils/100 WBC (Bld)91.4 %Normal.The [facility] Physician GroupComment on above:Performed By: #### BMP, CBC ####[place] [address] USANRBC%0.0 /100{WBC}Normal0-0.5The [facility] Physician GroupComment on above:Performed By: #### BMP, CBC ####[place] [address] USAPlatelet mean volume (Bld) [Entitic vol]7.9 fLNormal6.6-10.1The [facility] Physician GroupComment on above: Performed By: #### BMP, CBC ####[place] [address] USAPlatelets (Bld) [#/Vol]400 10*3/hIUxgprr846-385Sub [facility] Physician GroupComment on above:Performed By: #### BMP, CBC ####[place] [address] USARBC (Bld) [#/Vol]3.28 10*6/uLLow3.90-5.60The [facility] Physician GroupComment on above:Performed By: #### BMP, CBC ####[place] [address] USAWBC (Bld) [#/Vol]14.8 10*3/uLHigh4.1-10.5The [facility] Physician GroupComment on above:Performed By: #### BMP, CBC ####[place] [address] USAWhite Blood Count14.8 [CFU]/mLHigh4.1-10.5The [facility] Physician GroupComment on above:Performed By: #### BMP, CBC ####[place] [address] USAComplete Blood Count Auto Diffon [id number] (Bld) [#/Vol]0.0 10*3/uLNormal0.0-0.2The [facility] Physician GroupComment on above:Result Comment: PERFORMED BY: [place] [address] PATHOLOGIST [employer] SUPER[employer] REGGIE CASTANEDA M.D.Performed By: #### BMP #### [place] [address] USABasophils/100 WBC (Bld)0.1 %Normal.The [facility] Physician GroupComment on above:Performed By: #### BMP #### [place] [address] USAEosinophils (Bld) [#/Vol]0.0 10*3/uLNormal0.0-0.45The [facility] Physician GroupComment on above:Performed By: #### BMP #### [place] [address] USAEosinophils/100 WBC (Bld)0.0 %Normal.The [facility] Physician GroupComment on above:Performed By: #### BMP #### [place] [address] USAErythrocyte distribution width (RBC) [Ratio]21.0 %High 12.0-14.8The [facility] Physician GroupComment on above:Performed By: #### BMP #### [place] [address] USAHematocrit (Bld) [Volume fraction]28.6 %Low38.8-50.0The [facility] Physician GroupComment on above:Performed By: #### BMP #### [place] [address] USAHemoglobin (Bld) [Mass/Vol]9.3 g/dLLow13.0-17.0The [facility] Physician GroupComment on above:Performed By: #### BMP #### [place] [address] USALymphocytes (Bld) [#/Vol]0.7 10*3/uLLow1.00-4.8The [facility] Physician GroupComment on above:Performed By: #### BMP #### [place] [address] USALymphocytes/100 WBC (Bld)5.0 %Normal.The [facility] Physician GroupComment on above:Performed By: #### BMP #### [place] [address] USAMCH (RBC) [Entitic mass]29.0 arQbwwhv45.5-35.2The [facility] Physician GroupComment on above:Performed By: #### BMP #### [place] [address] USAMCV (RBC) [Entitic vol]88.8 sFEeyapx54.5-101The [facility] Physician GroupComment on above:Performed By: #### BMP #### [place] [address] USAMean Corpuscular HGB Conc32.7 g/hXNmxchk30.5-35.6The [facility] Physician GroupComment on above:Performed By: #### BMP #### [place] [address] USAMonocytes (Bld) [#/Vol]0.5 10*3/uLNormal0.0-0.8The [facility] Physician GroupComment on above:Performed By: #### BMP #### [place] [address] USAMonocytes/100 WBC (Bld)3.6 %Normal.The [facility] Physician GroupComment on above:Performed By: #### BMP #### [place] [address] USANeutrophils (Bld) [#/Vol]12.8 10*3/uLHigh1.8-7.7The [facility] Physician GroupComment on above:Performed By: #### BMP #### [place] [address] USANeutrophils/100 WBC (Bld)91.3 %Normal.The [facility] Physician GroupComment on above:Performed By: #### BMP #### [place] [address] USANRBC%0.0 /100{WBC}Normal0-0.5The [facility] Group Comment on above:Performed By: #### BMP #### [place] [address] USAPlatelet mean volume (Bld) [Entitic vol]7.8 fLNormal 6.6-10.1The [facility] Physician GroupComment on above:Performed By: #### BMP #### [place] [address] USAPlatelets (Bld) [#/Vol]385 10*3/wWBitgje944-416Smr [facility] Physician GroupComment on above:Performed By: #### BMP #### [place] [address] USARBC (Bld) [#/Vol]3.22 10*6/uLLow3.90-5.60The [facility] Physician GroupComment on above:Performed By: #### BMP #### [place] [address] USAWBC (Bld) [#/Vol]14.0 10*3/uLHigh4.1-10.5The [facility] Physician GroupComment on above:Performed By: #### BMP #### [place] [address] USAWhite Blood Count14.0 [CFU]/mLHigh4.1-10.5The [facility] Physician GroupComment on above:Performed By: #### BMP #### [place] [address] USAComprehensive Metabolic Panelon 22-92-5852Qzcstxi [Mass/Vol]3.4 g/dLLow3.5-5.7The [facility] Physician GroupComment on above: Performed By: #### BMP #### [place] [address] USAAlbumin/Globulin [Mass ratio]1.3 {ratio}NormalThe [facility] Physician GroupComment on above:Performed By: #### BMP #### [place] [address] USAALP [Catalytic activity/Vol]106 U/HWpvt27-223Zgs [facility] Physician GroupComment on above:Performed By: #### BMP #### [place] [address] USAALT [Catalytic activity/Vol]7 U/LNormal7-52The [facility] Physician GroupComment on above:Performed By: #### BMP #### [place] [address] USAAnion gap [Moles/Vol]11.0 mmol/LNormal6.0-15.0The [facility] Physician GroupComment on above:Performed By: #### BMP #### [place] [address] USAAST [Catalytic activity/Vol]14 U/SKjzved98-62Dhw [facility] Physician GroupComment on above:Performed By: #### BMP #### [place] [address] USABilirubin [Mass/Vol]0.3 mg/dLNormal0.3-1.0The [facility] Physician GroupComment on above:Performed By: #### BMP #### [place] [address] USACalcium [Mass/Vol]8.9 mg/dLNormal8.6-10.3The [facility] Physician GroupComment on above:Performed By: #### BMP #### [place] [address] USAChloride [Moles/Vol]104 mmol/KYaqpqt34-401Ctx [facility] Physician GroupComment on above:Performed By: #### BMP #### [place] [address] USACO2 [Moles/Vol]25.0 mmol/PBexpxz40.0-31.0The [facility] Physician GroupComment on above:Performed By: #### BMP #### [place] [address] USACreatinine [Mass/Vol]1.01 mg/dLNormal0.70-1.30The [facility] Physician GroupComment on above:Performed By: #### BMP #### [place] [address] USACreatinine Clr Calc Amdzqwan66.41NormalThe [facility] Physician GroupComment on above:Performed By: #### BMP #### [place] [address] USAGFR/1.73 sq M.predicted MDRD (S/P/Bld) [Vol rate/Area] mL/min/{1.73_m2}NormalThe [facility] Physician GroupComment on above:Performed By: #### BMP #### [place] [address] USAGlobulin (S) [Mass/Vol]2.7 g/dLNormalThe [facility] Physician GroupComment on above:Performed By: #### BMP #### [place] [address] USAGlucose [Mass/Vol]153 mg/rFQwzt00-138Iak [facility] Physician GroupComment on above:Result Comment: Random Glucose Reference Range is dependent on time and content of last meal. Glucose of more than 200 mg/dL in a nonstressed, ambulatory subject supports the diagnosis of Diabetes Mellitus. ADA recommended reference rangePerformed By: #### BMP #### [place] [address] USAPotassium [Moles/Vol]4.0 mmol/LNormal3.5-5.1The [facility] Physician GroupComment on above:Performed By: #### BMP #### [place] [address] USAProtein [Mass/Vol]6.1 g/dLLow6.4-8.9The [facility] Physician GroupComment on above:Performed By: #### BMP #### [place] [address] USASodium [Moles/Vol]136 mmol/KQprxim484-481Rss [facility] Physician GroupComment on above:Performed By: #### BMP #### [place] [address] USAUrea nitrogen [Mass/Vol]25 mg/dLNormal7-25The [facility] Physician GroupComment on above:Performed By: #### BMP #### [place] [address] USAGram Stainon 96-68-3806Tukcsmhomyv observation Gram stain Nom (Unsp spec)Gram Stain [...] @ PLEASE ADD MARKER STACEY.SPIT PERFORMED BY: [place] [address] PATHOLOGIST [employer] SUPERVISOR REGGIE CASTANEDA M.D.NormalThe [facility] Physician GroupComment on above: Performed By: #### GS ####[facility] [place] [address] USAMagnesiumon 60-68-3683Adozmabyo [Mass/Vol]1.9 mg/dL Normal1.9-2.7The [facility] Physician GroupComment on above:Result Comment: PERFORMED BY: [place] [address] PATHOLOGIST [employer] SUPERVISOR REGGIE CASTANEDA M.D.Performed By: #### BMP #### [place] [address] USAComplete Blood Count Auto Diffon 67-34-1971Twyjortos (Bld) [#/Vol]0.0 10*3/uLNormal0.0-0.2The [facility] Physician GroupComment on above: Result Comment: PERFORMED BY: [place] [address] PATHOLOGIST [employer] SUPERVISOR RGEGIE CASTANEDA M.D.Performed By: #### BMP #### [place] [address] USABasophils/100 WBC (Bld)0.2 %Normal.The [facility] Physician GroupComment on above:Performed By: #### BMP #### [place] [address] USAEosinophils (Bld) [#/Vol]0.0 10*3/uLNormal0.0-0.45The [facility] Physician GroupComment on above:Performed By: #### BMP #### [place] [address] USAEosinophils/100 WBC (Bld)0.0 %Normal.The [facility] Physician GroupComment on above:Performed By: #### BMP #### [facility] [address] [place] [address] USAErythrocyte distribution width (RBC) [Ratio]21.0 %High 12.0-14.8The [facility] Physician GroupComment on above:Performed By: #### BMP #### [facility] [address] [place] [address] USAHematocrit (Bld) [Volume fraction]32.2 %Low38.8-50.0The [facility] Physician GroupComment on above:Performed By: #### BMP #### [place] [address] USAHemoglobin (Bld) [Mass/Vol]10.7 g/dLLow13.0-17.0The [facility] Physician GroupComment on above:Performed By: #### BMP #### [place] [address] USALymphocytes (Bld) [#/Vol]0.5 10*3/uLLow1.00-4.8The [facility] Physician GroupComment on above:Performed By: #### BMP #### [place] [address] USALymphocytes/100 WBC (Bld)11.1 %Normal.The [facility] Physician GroupComment on above:Performed By: #### BMP #### [place] [address] USAMCH (RBC) [Entitic mass]29.6 hvPhrvtq48.5-35.2The [facility] Physician GroupComment on above:Performed By: #### BMP #### [place] [address] USAMCV (RBC) [Entitic vol]88.9 fVAjvhav33.5-101The [facility] Physician GroupComment on above:Performed By: #### BMP #### [place] [address] USAMean Corpuscular HGB Conc33.3 g/rDEujjfu17.5-35.6The [facility] Physician GroupComment on above:Performed By: #### BMP #### [facility] [address] [place] [address] USAMonocytes (Bld) [#/Vol]0.0 10*3/uLNormal0.0-0.8The [facility] Physician GroupComment on above:Performed By: #### BMP #### [facility] [address] [place] [address] USAMonocytes/100 WBC (Bld)1.0 %Normal.The [facility] Physician GroupComment on above:Performed By: #### BMP #### [facility] [address] [place] [address] USANeutrophils (Bld) [#/Vol]4.1 10*3/uLNormal1.8-7.7The [facility] Physician GroupComment on above:Performed By: #### BMP #### [facility] [address] [place] [address] USANeutrophils/100 WBC (Bld)87.7 %Normal.The [facility] Physician GroupComment on above:Performed By: #### BMP #### [facility] [address] [place] [address] USANRBC%0.0 /100{WBC}Normal0-0.5The [facility] Physician Group Comment on above:Performed By: #### BMP #### [facility] [address] [place] [address] USAPlatelet mean volume (Bld) [Entitic vol]7.5 fLNormal 6.6-10.1The [facility] Physician GroupComment on above:Performed By: #### BMP #### [facility] [address] [place] [address] USAPlatelets (Bld) [#/Vol]361 10*3/zAOluixc559-839Inq [facility] Physician GroupComment on above:Performed By: #### BMP #### [facility] [address] [place] [address] USARBC (Bld) [#/Vol]3.62 10*6/uLLow3.90-5.60The [facility] Physician GroupComment on above:Performed By: #### BMP #### [facility] [address] [place] [address] USAWBC (Bld) [#/Vol]4.7 10*3/uLNormal4.1-10.5The [facility] Physician GroupComment on above:Performed By: #### BMP #### [facility] [address] [place] [address] USAWhite Blood Count4.7 [CFU]/mLNormal4.1-10.5The [facility] Physician GroupComment on above:Performed By: #### BMP #### [place] [address] USAComprehensive Metabolic Panelon 46-89-4597Bazrigb [Mass/Vol]3.5 g/dLNormal3.5-5.7The [facility] Physician GroupComment on above: Performed By: #### BMP #### [place] [address] USAAlbumin/Globulin [Mass ratio]1.1 {ratio}NormalThe [facility] Physician GroupComment on above:Performed By: #### BMP #### [place] [address] USAALP [Catalytic activity/Vol]133 U/WDxqp40-142Etv [facility] Physician GroupComment on above:Performed By: #### BMP #### [place] [address] USAALT [Catalytic activity/Vol]9 U/LNormal7-52The [facility] Physician GroupComment on above:Performed By: #### BMP #### [facility] [address] [place] [address] USAAnion gap [Moles/Vol]11.0 mmol/LNormal6.0-15.0The [facility] Physician GroupComment on above:Performed By: #### BMP #### [place] [address] USAAST [Catalytic activity/Vol]17 U/ODufiva39-87Yuw [facility] Physician GroupComment on above:Performed By: #### BMP #### [address] [place] [address] USABilirubin [Mass/Vol]0.3 mg/dLNormal0.3-1.0The [facility] Physician GroupComment on above:Performed By: #### BMP #### [place] [address] USACalcium [Mass/Vol]8.9 mg/dLNormal8.6-10.3The [facility] Physician GroupComment on above:Performed By: #### BMP #### [place] [address] USAChloride [Moles/Vol]103 mmol/EAvsdvb58-364Tdk [facility] Physician GroupComment on above:Performed By: #### BMP #### [place] [address] USACO2 [Moles/Vol]26.1 mmol/EWbjwju95.0-31.0The [facility] Physician GroupComment on above:Performed By: #### BMP #### [place] [address] USACreatinine [Mass/Vol]1.02 mg/dLNormal0.70-1.30The [facility] Physician GroupComment on above:Performed By: #### BMP #### [place] [address] USACreatinine Clr Calc Fdolbanb37.66NormalThe [facility] Physician GroupComment on above:Performed By: #### BMP #### [place] [address] USAGFR/1.73 sq M.predicted MDRD (S/P/Bld) [Vol rate/Area] mL/min/{1.73_m2}NormalThe [facility] Physician GroupComment on above:Performed By: #### BMP #### [place] [address] USAGlobulin (S) [Mass/Vol]3.1 g/dLNormalThe [facility] Physician GroupComment on above:Performed By: #### BMP #### [place] [address] USAGlucose [Mass/Vol]179 mg/dQHgqv76-151Cpj [facility] Physician GroupComment on above:Result Comment: Random Glucose Reference Range is dependent on time and content of last meal. Glucose of more than 200 mg/dL in a nonstressed, ambulatory subject supports the diagnosis of Diabetes Mellitus. ADA recommended reference rangePerformed By: #### BMP #### [place] [address] USAPotassium [Moles/Vol]4.1 mmol/LNormal3.5-5.1The [facility] Physician GroupComment on above:Performed By: #### BMP #### [place] [address] USAProtein [Mass/Vol]6.6 g/dLNormal6.4-8.9The [facility] Physician GroupComment on above:Performed By: #### BMP #### [place] [address] USASodium [Moles/Vol]136 mmol/FXeyjto975-975Zwp [facility] Physician GroupComment on above:Performed By: #### BMP #### [place] [address] USAUrea nitrogen [Mass/Vol]17 mg/dLNormal7-25The [facility] Physician GroupComment on above:Performed By: #### BMP #### [place] [address] USAMagnesiumon 57-91-3923Hrccyltsr [Mass/Vol]1.9 mg/dLNormal 1.9-2.7The [facility] Physician GroupComment on above:Result Comment: PERFORMED BY: [place] [address] PATHOLOGIST [employer] SUPERVISOR REGGIE CASTANEDA M.D.Performed By: #### BMP #### [place] [address] USAXR chest 2V*on 49-42-4142TI chest 2V*[facility] [place] [address] [place] [address] XRay Report Signed Patient: Mary Mcadams MR#: [id number] : 1955 Acct:[id number] Age/Sex: 69 / M ADM Date: 02/16/25 Loc: Room: [address] [place] [address] Type: ADM IN Attending Dr: Jose Padilla [...] Jr., D.O. 02/16/2025 11:06 AM Dictation Location: [facility] Transcribed By: [facility] 02/16/25 1106 Dictated By: Hasmukh Clifford Jr, DO 02/16/25 1105 Signed By: 02/16/25 1106[facility] Physician GroupAlanine aminotransferase [Enzymatic activity/volume] in Serum or PlasmaOrdered By: Cee Proctor on 37-84-3213NDU [Catalytic activity/Vol]11 U/LNormal7-52[facility] HospitalComment on above:Performed By: #### CMP, CBC #### [facility] [address] [place] [address] USAAlbumin [Mass/volume] in Serum or Plasma by Bromocresol green (BCG) dye binding methoOrdered By: Cee Proctor on 27-86-2468Hqxxamq BCG dye [Mass/Vol]3.8 g/dL3.5-5.7FDetwiler Memorial HospitalAlkaline phosphatase [Enzymatic activity/volume] in Serum or PlasmaOrdered By: Cee Proctor on 86-65-1695SEZ [Catalytic activity/Vol]146 U/AOcah72-410MfwslodeuMiddletown HospitalComment on above:Performed By: #### CMP, CBC #### [facility] [address] [place] [address] USAAspartate aminotransferase [Enzymatic activity/volume] in Serum or PlasmaOrdered By: Cee Proctor on 46-05-6398UCB [Catalytic activity/Vol]25 U/GZiueuc73-26XvyppphuqMiddletown HospitalComment on above: Performed By: #### CMP, CBC #### [place] [address] USABNP ser/plasOrdered By: Cee Proctor on 02-15-2025 Natriuretic peptide B (Bld) [Mass/Vol]57.0 pg/mLNormal5-100[facility] HospitalComment on above:Result Comment: PERFORMED BY: [place] [address] PATHOLOGIST [employer] SUPERVISOR REGGIE CASTANEDA M.D.Performed By: #### CMP, CBC #### [place] [address] USABasophils [#/volume] in Blood by Automated countOrdered By: Cee Proctor on 12-30-7695Xrvfpayxb (Bld) [#/Vol]0.1 10*3/uLNormal0.0-0.2 [facility] HospitalComment on above:Result Comment: PERFORMED BY: [place] [address] PATHOLOGIST [employer] SUPERVISOR REGGIE CASTANEDA M.D.Performed By: #### CMP, CBC #### [place] [address] USABasophils/100 leukocytes in Blood by Automated count Ordered By: Cee Proctor on 93-21-4384Eyjksjkuj/100 WBC (Bld)1.0 %Normal. [facility] HospitalComment on above:Performed By: #### CMP, CBC #### [place] [address] USABilirubin.total [Mass/volume] in Serum or PlasmaOrdered By: Cee Proctor on 47-35-1090Exvsfnyvl [Mass/Vol]0.5 mg/dLNormal0.3-1.0 [facility] HospitalComment on above:Performed By: #### CMP, CBC #### [facility] [address] [place] [id number] USACOVID Cepheid NegativeOrdered By: Cee Proctor on 47-07-6928ARCZ-CoV-2 (COVID-19) Ab IA QlNegativeNegativeMiddletown HospitalComment on above:This is a duplicate Cepheid Xpert Xpress CoV- 2/Flu/RSV Plus RNA by RT-PCR result to be used for statistical tracking purpose only.COVID-19 / Flu A/B / RSV PCRon 74-84-8475OPQN-CoV-2 (COVID-19) RNA HOWIE+probe Ql (Unsp spec)COVID-19 Cepheid [...] Disclaimer revoked sooner. PERFORMED BY: [place] [id number] PATHOLOGIST [employer] SUPERVISOR REGGIE CASTANEDA M.D.NormalThe [facility] Physician GroupComment on above: Performed By: #### BMP #### [place] [id number] USACalcium [Mass/volume] in Serum or PlasmaOrdered By: Cee Proctor on 79-67-2242Szmphgl [Mass/Vol]9.5 mg/dLNormal8.6-10.3FDetwiler Memorial HospitalComment on above:Performed By: #### CMP, CBC #### [place] [id number] USACarbon dioxide, total [Moles/volume] in Serum or Plasma Ordered By: Cee Proctor on 32-89-9867NF6 [Moles/Vol]27.4 mmol/WMpfepz84.0-31.0 [facility] HospitalComment on above:Performed By: #### CMP, CBC #### [address] [address] USACepheid COVID PCR Negativeon 86-66-7813FAHR-CoV-2 (COVID- 19) RNA HOWIE+probe Ql (Unsp spec)NegativeNormalNegativeThe [facility] Physician GroupComment on above:Result Comment: This is a duplicate Cepheid Xpert Xpress CoV-2/Flu/RSV Plus RNA by RT-PCR result to be used for statistical tracking purpose only. PERFORMED BY: [address] [address] PATHOLOGIST [employer]ANT SUPERVISOR REGGIE CASTANEDA M.D.Performed By: #### BMP #### [place] [address] USAChloride [Moles/volume] in Serum or PlasmaOrdered By: Cee Proctor on 13-77-5773Lgnegzjk [Moles/Vol]101 mmol/XUexqjt22-541AfhmadnhtMiddletown HospitalComment on above:Performed By: #### CMP, CBC #### [place] [address] USAComplete Blood Count Auto Diffon 02-08-1254Roet Corpuscular HGB Conc33.5 g/sMCmopca82.5-35.6The [facility] Physician GroupComment on above:Performed By: #### CMP, CBC #### [place] [address] USAMonocytes/100 WBC (Bld)20.43 %High0.00-20.00The [facility] Physician GroupComment on above:Result Comment: For adults in ED, MDW > 20.0 may be associated with a higher risk of sepsis during the first 12 hrs of hospital admissionPerformed By: #### CMP, CBC #### [place] [address] USANRBC%0.0 /100{WBC}Normal0-0.5The [facility] Physician Group Comment on above:Performed By: #### CMP, CBC #### [place] [address] USAWhite Blood Count6.3 [CFU]/mLNormal4.1-10.5The [facility] Physician GroupComment on above:Performed By: #### CMP, CBC #### [place] [address] USAComprehensive Metabolic Panelon 68-57-1560Tkatwpl [Mass/Vol]3.8 g/dLNormal3.5-5.7The [facility] Physician GroupComment on above: Performed By: #### CMP, CBC #### [place] [address] USACreatinine Clr Calc Wuddhrsz02.57NoLifeBrite Community [facility] Physician GroupComment on above:Result Comment: PERFORMED BY: [place] [address] PATHOLOGIST [employer] SUPERVISOR REGGIE CASTANEDA M.D.Performed By: #### CMP, CBC #### [facility] [address] [place] [address] USAGFR/1.73 sq M.predicted MDRD (S/P/Bld) [Vol rate/Area] mL/min/{1.73_m2}NormalThe [facility] Physician GroupComment on above:Performed By: #### CMP, CBC #### [facility] [address] [place], [place] [address] USACreatinine [Mass/volume] in Serum or PlasmaOrdered By: Cee Proctor on 96-34-4043Ccvqthbatq [Mass/Vol]1.14 mg/dLNormal0.70-1.30 [facility] HospitalComment on above:Performed By: #### CMP, CBC #### [facility] [address] [place] [address] USAECG 12 lead ECGon 33-73-8986EMB 12 [facility]GLICK[facility] [place] [address] [place], [place] [address] Electrocardiograph Report Signed Patient: Mary Mcadams MR#: [id number] : 1955 Acct:[id number] Age/Sex: 69 / M ADM Date: 02/15/25 Loc: ER Room: Type: [facility] ER Attending Dr: Ordering Provider: Cee Proctor [...] is now present Confirmed by Cee Proctor ([id number]) on 02/16/2025 2:48:56 AM Referred By: Electronically Signed By: Cee Proctor Transcribed By: MUS Signed By Cee Proctor DO 02/16 0249[facility] Physician GroupEosinophils [#/volume] in Blood by Automated countOrdered By: Cee Proctor on 83-35-5411Mgrlmfkgqie (Bld) [#/Vol] 0.2 10*3/uLNormal0.0-0.45[facility] HospitalComment on above: Performed By: #### CMP, CBC #### [place] [address] USAEosinophils/100 leukocytes in Blood by Automated count Ordered By: Cee Proctor on 15-42-0241Qrlabcjbxwy/100 WBC (Bld)2.7 %Normal. [facility] HospitalComment on above:Performed By: #### CMP, CBC #### [facility] [address] [place] [address] USAErythrocyte distribution width [Ratio] by Automated count Ordered By: Cee Proctor on 62-38-7529Hcwfrenyjqj distribution width (RBC) [Ratio]20.9 %High12.0-14.8[facility] HospitalComment on above: Performed By: #### CMP, CBC #### [facility] [address] [place] [address] USAErythrocytes [#/volume] in Blood by Automated countOrdered By: Cee Proctor on 50-14-6408DMS (Bld) [#/Vol]3.87 10*6/uLLow3.90-5.60 [facility] HospitalComment on above:Performed By: #### CMP, CBC #### [facility] [address] [place] [address] USAGlomerular filtration rate [Volume Rate/Area] in Serum, Plasma or Blood by CreatinineOrdered By: Cee Proctor on 51-92-6642Xntorsndpm filtration rate [Volume Rate/Area] in Serum, Plasma or Blood by Creatinine> 60.0 mL/MinMiddletown HospitalGlucose [Mass/volume] in Serum or Plasma Ordered By: Cee Proctor on 55-30-8925Ggubgvr [Mass/Vol]99 mg/fQJmpkwk63-911 [facility] HospitalComment on above:ADA recommended reference rangeRandom Glucose Reference [...] reference rangePerformed By: #### CMP, CBC #### [facility] [address] [place], [place] [address] USAHematocrit [Volume Fraction] of Blood by Automated count Ordered By: Cee Proctor on 07-34-8086Mpskfbtieo (Bld) [Volume fraction]34.3 % Low38.8-50.0[facility] HospitalComment on above:Performed By: #### CMP, CBC #### [facility] [address] [place] [address] USAHemoglobin [Mass/volume] in BloodOrdered By: Cee Proctor on 85-15-5233Cwiivwfkyw (Bld) [Mass/Vol]11.5 g/dLLow13.0-17.0[facility] HospitalComment on above:Performed By: #### CMP, CBC #### [place] [id number] USAINR in Platelet poor plasma by Coagulation assayOrdered By: Cee Proctor on 82-52-7394HUW Coag (PPP) [Relative time]2.0 {INR}Normal [facility] HospitalComment on above:INR Therapeutic Range A) Pre- and [...] heart valves: 3 - 4.5 PERFORMED BY: [place] [address] PATHOLOGIST [employer] SUPERVISOR REGGIE CASTANEDA M.D.Performed By: #### CMP, CBC #### [place] [address] USALeukocytes [#/volume] corrected for nucleated erythrocytes in Blood by Automated counOrdered By: Cee Proctor on 53-27-2248JPB corrected for nucl RBC Auto (Bld) [#/Vol]6.3 10*3/uL4.1-10.5FDetwiler Memorial HospitalLeukocytes [#/volume] in Blood by Automated countOrdered By: Cee Proctor on 09-46-2260AFJ (Bld) [#/Vol]6.3 10*3/uLNormal4.1-10.5FDetwiler Memorial HospitalComment on above:Performed By: #### CMP, CBC #### [facility] [address] [place] [address] USALymphocytes [#/volume] in Blood by Automated countOrdered By: Cee Proctor on 63-89-1542Xdcnyqkfjyn (Bld) [#/Vol]1.2 10*3/uLNormal 1.00-4.8[facility] HospitalComment on above:Performed By: #### CMP, CBC #### [place] [address] USALymphocytes/100 leukocytes in Blood by Automated count Ordered By: Cee Proctor on 86-41-5176Upqqfvsgczk/100 WBC (Bld)18.5 %Normal. [facility] HospitalComment on above:Performed By: #### CMP, CBC #### [facility] [address] [place] [address] USAH [Entitic mass] by Automated countOrdered By: Cee Proctor on 61-96-6257OTT (RBC) [Entitic mass]29.8 leShlsio40.5-35.2FDetwiler Memorial HospitalComment on above:Performed By: #### CMP, CBC #### [facility] [address]HC Auto (RBC) [Mass/Vol]Ordered By: Cee Proctor on 37-24-9869GUBI (RBC) [Mass/Vol]33.5 g/dL32.5-35.6FDetwiler Memorial HospitalMCV [Entitic volume] by Automated countOrdered By: Cee Proctor on 50-93-2985JKZ (RBC) [Entitic vol]88.7 fVQlahls30.5-101M[facility] HospitalComment on above:Performed By: #### CMP, CBC #### [facility] [address] [place] [address] USAMonocyte distribution width [Entitic volume] in Blood by AutomatedOrdered By: Cee Proctor on 87-77-0897Xncdveyt distribution width Auto (Bld) [Entitic vol]20.43 %High0.00-20.00[facility] HospitalComment on above:For adults in ED, MDW > 20.0 may be associated with a higher risk of sepsis during the first 12 hrs of hospital admissionMonocytes [#/volume] in Blood by Automated countOrdered By: Cee Proctor on 40-64-8374Sgwyjlubh (Bld) [#/Vol]0.7 10*3/uLNormal0.0-0.8[facility] HospitalComment on above:Performed By: #### CMP, CBC #### [facility] [address] [place], [place] [address] USAMonocytes/100 leukocytes in Blood by Automated count Ordered By: Cee Proctor on 10-95-5522Igadueqbq/100 WBC (Bld)10.6 %Normal. [facility] HospitalComment on above:Performed By: #### CMP, CBC #### [facility] [address] [place] [address] USANeutrophils [#/volume] in Blood by Automated countOrdered By: Cee Proctor on 57-26-9837Axwhyjvwzzy (Bld) [#/Vol]4.3 10*3/uLNormal1.8-7.7 [facility] HospitalComment on above:Performed By: #### CMP, CBC #### [facility] [address] [place] [address] USANeutrophils/100 leukocytes in Blood by Automated count Ordered By: Cee Proctor on 79-60-0584Prmcitddtpi/100 WBC (Bld)67.2 %Normal. [facility] HospitalComment on above:Performed By: #### CMP, CBC #### [facility] [address] [place] [address] USANo Panel InformationOrdered By: Cee Proctor on 33-87-9785Jetrsrza Creatinine Clearance (Chem50.57M[facility]letown HospitalNucleated erythrocytes [Presence] in Blood by Automated countOrdered By: Cee Proctor on 54-32-5775Gsiputili RBC Auto Ql (Bld)0.0 /100{WBC}0-0.5 [facility]own HospitalPlatelet mean volume [Entitic volume] in Blood by Automated countOrdered By: Cee Proctor on 76-27-7667Nkuzquqf mean volume (Bld) [Entitic vol]7.5 fLNormal6.6-10.1FDetwiler Memorial HospitalComment on above:Performed By: #### CMP, CBC #### [facility] [address] [place] [address] USAPlatelets [#/volume] in Blood by Automated countOrdered By: Cee Proctor on 42-62-5162Tibrcymtj (Bld) [#/Vol]376 10*3/nDSygreb166-873 [facility] HospitalComment on above:Performed By: #### CMP, CBC #### [facility] [address] [place] [address] USAPotassium [Moles/volume] in Serum or PlasmaOrdered By: Cee Proctor on 21-43-9297Rmmepqioh [Moles/Vol]3.9 mmol/LNormal3.5-5.1FDetwiler Memorial HospitalComment on above:Performed By: #### CMP, CBC #### [facility] [address] [place] [address] USAProtein [Mass/volume] in Serum or PlasmaOrdered By: Cee Proctor on 36-63-0188Wgbttrc [Mass/Vol]7.1 g/dLNormal6.4-8.9[facility] HospitalComment on above:Performed By: #### CMP, CBC #### [facility] [address] [place] [address] USAProthrombin time (PT)Ordered By: Cee Proctor on 96-83-4044AW Coag (PPP) [Time]22.6 sHigh9.0-12.9[facility] HospitalComment on above:A hematocrit value greater than 55% may lead to inaccurate results in coagulation testing. Patientshaving hematocrit values >55% require a special collection tube for coagulation studies. Please contact the laboratory at [phone] for redraw instructions.Result Comment: A hematocrit value greater than 55% may lead to inaccurate results in coagulation testing. Patients having hematocrit values >55% require a special collection tube for coagulation studies. Please contact the laboratory at [phone] for redraw instructions.Performed By: #### CMP, CBC #### [facility] [address] [place] [id number] USARespiratory specimen influenza A virus, influenza B virus, respiratory syncytical virOrdered By: Cee Proctor on 57-37-9885AQLD-CoV-2 (COVID-19) RNA HOWIE+probe Ql (Unsp spec)[facility] Centererum globulin measurement by calculation (mass/volume)Ordered By: Cee Proctor on 65-05-2296Wfphpnup (S) [Mass/Vol]3.3 g/dLNormSelect Medical [facility] [place] Comment on above:Performed By: #### CMP, CBC #### [place] [address] USASerum or plasma albumin/globulin mass ratioOrdered By: Cee Proctor on 92-32-9241Zhavlqv/Globulin [Mass ratio]1.2 {ratio}Normal [facility] HospitalComment on above:Performed By: #### CMP, CBC #### [place] [address] USASerum or plasma anion gap determinationOrdered By: Cee Proctor on 53-86-3726Wyayc gap [Moles/Vol]11.5 mmol/LNormal6.0-15.0[facility]own HospitalComment on above:Performed By: #### CMP, CBC #### [place] [address] USASodium [Moles/volume] in Serum or PlasmaOrdered By: Cee Proctor on 38-89-1320Olxftl [Moles/Vol]136 mmol/NCfchxi498-104FuqdnzvpaMiddletown HospitalComment on above:Performed By: #### CMP, CBC #### [place] [address] USATroponin I High Sensitivityon 51-27-8620Dfdugbrc I High Auelozkdhgi2Duqtyc5-19Pwh [facility] Physician GroupComment on above:Result Comment: The Troponin units of report have been changed to meet the Chest Pain Accreditation requirement, element EC5.M1l2. Troponin units are changed from pg/ml to ng/L. Also, the decimal is removed and results are in whole numbers. PERFORMED BY: [place] [address] PATHOLOGIST [employer] SUPERVISOR REGGIE CASTANEDA M.D.Performed By: #### CMP, CBC #### [place] [address] USATroponin I.cardiac [Mass/volume] in Serum or Plasma by Detection limit <= 0.01 ng/mLOrdered By: Cee Proctor on 72-03-2799Sfvvzott I.cardiac DL <= 0.01 ng/mL [Mass/Vol]7 ng/L0-20[facility] Comment on above:The Troponin units of report have been changed to meet the Chest Pain Accreditation requirement, element EC5.M1l2. Troponin units are changed from pg/ml to ng/L. Also, the decimal is removed and results are in whole numbers.Urea nitrogen [Mass/volume] in Serum or PlasmaOrdered By: Cee Proctor on 56-57-9810Xpkm nitrogen [Mass/Vol]17 mg/dLNormal-[facility]own HospitalComment on above:Performed By: #### CMP, CBC #### [place] [address] USABasophils Auto (Bld) [#/Vol]Ordered By: Ning Godoy on 09-42-6878Lcuydklmx (Bld) [#/Vol]0.0 10 3/uL0.0-0.1FDetwiler Memorial HospitalBasophils/100 WBC Auto (Bld)Ordered By: Ning Godoy on 01-30-2025 Basophils/100 WBC (Bld)0.4 %0.2-2.0[facility] Eosinophils/100 WBC Auto (Bld)Ordered By: Ning Godoy on 01-30-2025 Eosinophils/100 WBC (Bld)5.0 %0.9-7.0[facility] Erythrocyte distribution width Auto (RBC) [Ratio]Ordered By: Ning Godoy on 07-45-7030Mcnhycuolsa distribution width (RBC) [Ratio]20.3 %High11.0-15.0 [facility] HospitalGlomerular filtration rate (GFR) estimation in non- AmericanOrdered By: Ning Godoy on 07-98-3882JOL/1.73 sq M.predicted among non-blacks MDRD (S/P/Bld) [Vol rate/Area]57 mL/min/{1.73_m2}Low>=60 mL/min/1.73m 2FDetwiler Memorial HospitalHematocrit Auto (Bld) [Volume fraction]Ordered By: Ning Godoy on 65-31-9208Yurbimgonw (Bld) [Volume fraction] 32.1 %Low42.0-54.0[facility] HospitalHemoglobin [Mass/volume] in BloodOrdered By: Ning Godoy on 97-83-8391Gqisbbvnfz (Bld) [Mass/Vol]10.4 g/dL Low14.0-18.0[facility] HospitalLaboratory - Chemistry and Chemistry - challengeOrdered By: Ning Godoy on 03-36-8414Kvbgjnk [Mass/Vol]8.8 mg/dL8.5-10.1FDetwiler Memorial HospitalChloride [Moles/Vol]106 mmol/L 98-107M[facility] HospitalCO2 [Moles/Vol]26.2 mmol/L21.0-32.0 [facility] HospitalCreatinine [Mass/Vol]1.25 mg/dL0.70-1.30 [facility] HospitalGFR/1.73 sq M.predicted MDRD (S/P/Bld) [Vol rate/Area]mL/min/{1.73_m2}>=60 mL/min/1.73m 2FDetwiler Memorial Hospital Glucose [Mass/Vol]99 mg/bD45-799NhexgtcpvMiddletown HospitalPotassium [Moles/Vol]4.1 mmol/L3.5-5.1FSt. Rita's Hospitalodium [Moles/Vol] 141 mmol/X654-039YyxdewbjxMiddletown HospitalUrea nitrogen [Mass/Vol]21.0 mg/dLHigh7.0-18.0[facility] HospitalUrea nitrogen/Creatinine [Mass ratio]16.8 mg/mgMiddletown HospitalLaboratory - Hematology and Cell countsOrdered By: Ning Godoy on 42-55-7418Feaygpha granulocytes/100 WBC (Bld)0.4 %0.0-0.5FDetwiler Memorial HospitalLeukocytes [#/volume] corrected for nucleated erythrocytes in Blood by Automated counOrdered By: Ning Godoy on 26-98-6059FOA corrected for nucl RBC Auto (Bld) [#/Vol]5.6 10 3/uL 4.0-11.0[facility] HospitalLymphocytes Auto (Bld) [#/Vol]Ordered By: Ning Godoy on 65-91-6956Jmppqoqlcbb (Bld) [#/Vol]1.0 10 3/uLLow1.2-3.8 [facility] HospitalLymphocytes/100 WBC Auto (Bld)Ordered By: Ning Godoy on 23-25-2199Xshiblaujpu/100 WBC (Bld)18.1 %Low20.5-60.0[facility] HospitalH Auto (RBC) [Entitic mass]Ordered By: Ning Godoy on 47-46-6382NXY (RBC) [Entitic mass]29.1 pg25.9-34.0[facility] HospitalHC Auto (RBC) [Mass/Vol]Ordered By: Ning Godoy on 74-20-0808OGNH (RBC) [Mass/Vol]32.4 g/dL29.9-35.2FDetwiler Memorial HospitalMCV Auto (RBC) [Entitic vol]Ordered By: Ning Godoy on 47-26-7420NLE (RBC) [Entitic vol]89.9 fL 80.0-94.0[facility] HospitalMonocytes Auto (Bld) [#/Vol]Ordered By: Ning Godoy on 69-08-7864Zyywfbfhh (Bld) [#/Vol]0.5 10 3/uL0.3-0.8[facility] HospitalMonocytes/100 WBC Auto (Bld)Ordered By: Ning Godoy on 88-61-8281Jwtfupswa/100 WBC (Bld)9.2 %1.7-12.0[facility] Neutrophils Auto (Bld) [#/Vol]Ordered By: Ning Godoy on 92-61-2613Pgvcvnvfcwb (Bld) [#/Vol]3.8 10 3/uL1.4-6.5FDetwiler Memorial HospitalNeutrophils/100 WBC Auto (Bld)Ordered By: Ning Godoy on 58-01-1912Ghjhvvuqbpv/100 WBC (Bld)66.9 %43.0-75.0[facility] HospitalNo Panel InformationOrdered By: Ning Godoy on 46-10-7320Acmxuftxlku # (Auto)0.3 10 3/uL0.0-0.7FDetwiler Memorial HospitalImmature Granulocyte # (Auto)0.02 10 3/uL0.00-0.03 [facility] HospitalPlatelet mean volume Auto (Bld) [Entitic vol] Ordered By: Ning Godoy on 78-69-3645Axoflwmn mean volume (Bld) [Entitic vol]9.3 fLLow9.5-13.5FDetwiler Memorial HospitalPlatelets Auto (Bld) [#/Vol] Ordered By: Ning Godoy on 49-34-6353Lrlvxdtdc (Bld) [#/Vol]209 10 3/hJ266-816 [facility] HospitalRBC Auto (Bld) [#/Vol]Ordered By: Ning Godoy on 92-70-1404OGO (Bld) [#/Vol]3.57 10 6/uLLow4.70-6.10[facility] Medical Centererum or plasma anion gap determinationOrdered By: Ning Godoy on 34-57-6884Okxxn gap [Moles/Vol]12.9 mmol/LFDetwiler Memorial HospitalMR CARDIAC MORPHOLOGY AND FUNCTION W AND WO IV CONTRASTon 14-96-2266FV CARDIAC MORPHOLOGY AND FUNCTION W AND WO IV CONTRASTInterpreted By: Hoang Goff, STUDY: MR CARDIAC MORPHOLOGY AND FUNCTION W AND WO IV CONTRAST; 01/28/2025 12:02 pm INDICATION: Signs/Symptoms:cardiac sarcoidosis, increasing arrhythmia. This study is performed to assess myocardial viability and damage, and to quantitate left ventricular and valvular function. 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 ACCESSION NUMBER(S): [id number] ORDERING CLINICIAN: NING GODOY TECHNIQUE: Siemens1.5 Reina [...] Hoang Goff 01/29/2025 8:47 AM Dictation workstation: [id number] Health System Ontario HospitalBasophils Auto (Bld) [#/Vol]Ordered By: Ning Godoy on 28-85-6864Ndvdysjcp (Bld) [#/Vol]0.0 10 3/uL0.0-0.1FDetwiler Memorial HospitalBasophils/100 WBC Auto (Bld)Ordered By: Ning Godoy on 51-31-5571Tqacweexr/100 WBC (Bld)0.1 % Low0.2-2.0[facility] HospitalEosinophils/100 WBC Auto (Bld)Ordered By: Ning Godoy on 51-46-5350Vwvrthraspf/100 WBC (Bld)0.3 %Low0.9-7.0[facility] HospitalErythrocyte distribution width Auto (RBC) [Ratio]Ordered By: Ning Godoy on 66-00-3966Yskgspzlgzk distribution width (RBC) [Ratio]19.4 % High11.0-15.0[facility] HospitalGlomerular filtration rate (GFR) estimation in non- AmericanOrdered By: Ning Godoy on 66-01-8174KVU/1.73 sq M.predicted among non-blacks MDRD (S/P/Bld) [Vol rate/Area]mL/min/{1.73_m2} >=60 mL/min/1.73m 2FDetwiler Memorial HospitalHematocrit Auto (Bld) [Volume fraction]Ordered By: Ning Godoy on 50-94-4178Tosbsdjfls (Bld) [Volume fraction]33.4 %Low42.0-54.0[facility] HospitalHemoglobin [Mass/volume] in BloodOrdered By: Ning Godoy on 36-07-3150Rzblmzpbjv (Bld) [Mass/Vol]11.0 g/dLLow14.0-18.0[facility] HospitalLaboratory - Chemistry and Chemistry - challengeOrdered By: Ning Godoy on 57-26-0467Khhvgas [Mass/Vol]8.5 mg/dL8.5-10.1FDetwiler Memorial HospitalChloride [Moles/Vol] 104 mmol/X70-907ElljgessyMiddletown HospitalCO2 [Moles/Vol]29.8 mmol/L 21.0-32.0[facility] HospitalCreatinine [Mass/Vol]1.15 mg/dL 0.70-1.30[facility] HospitalGFR/1.73 sq M.predicted MDRD (S/P/Bld) [Vol rate/Area]mL/min/{1.73_m2}>=60 mL/min/1.73m 2FDetwiler Memorial HospitalGlucose [Mass/Vol]76 mg/nA93-805JsvmbjlyyMiddletown HospitalMagnesium [Mass/Vol]1.9 mg/dL1.8-2.4FDetwiler Memorial HospitalNatriuretic peptide B (Bld) [Mass/Vol]2617.0 pg/mLCritically high<=900.0[facility] HospitalComment on above:RESULTS CALLED TO KRISTIN TAYLOR LPNPotassium [Moles/Vol] 3.1 mmol/LLow3.5-5.1FSt. Rita's Hospitalodium [Moles/Vol]142 mmol/Y388-516UgmmsuwauMiddletown HospitalUrea nitrogen [Mass/Vol]32.0 mg/dL High7.0-18.0[facility] HospitalUrea nitrogen/Creatinine [Mass ratio]27.8 mg/mgMiddletown HospitalLaboratory - Hematology and Cell countsOrdered By: Ning Godoy on 60-54-9740Mfsvnfag granulocytes/100 WBC (Bld)1.6 %High0.0-0.5FDetwiler Memorial HospitalLeukocytes [#/volume] corrected for nucleated erythrocytes in Blood by Automated counOrdered By: Ning Godoy on 21-62-3429FGV corrected for nucl RBC Auto (Bld) [#/Vol]17.9 10 3/uL High4.0-11.0[facility] HospitalLymphocytes Auto (Bld) [#/Vol] Ordered By: Ning Godoy on 25-84-6782Cqwxffrpxom (Bld) [#/Vol]1.9 10 3/uL1.2-3.8 [facility] HospitalLymphocytes/100 WBC Auto (Bld)Ordered By: Ning Godoy on 81-99-6201Hvmhhhxsraa/100 WBC (Bld)10.5 %Low20.5-60.0[facility] Auto (RBC) [Entitic mass]Ordered By: Ning Godoy on 46-34-8564JOM (RBC) [Entitic mass]28.6 pg25.9-34.0[facility] HospitalMCHC Auto (RBC) [Mass/Vol]Ordered By: Ning Godoy on 37-66-7950EOPT (RBC) [Mass/Vol]32.9 g/dL29.9-35.2FDetwiler Memorial HospitalMCV Auto (RBC) [Entitic vol]Ordered By: Ning Godoy on 42-30-9111YUF (RBC) [Entitic vol]86.8 fL 80.0-94.0[facility] HospitalMonocytes Auto (Bld) [#/Vol]Ordered By: Ning Godoy on 69-47-3376Xdhajwgum (Bld) [#/Vol]1.0 10 3/uLHigh0.3-0.8 [facility] HospitalMonocytes/100 WBC Auto (Bld)Ordered By: Ning Godoy on 54-64-7314Kwlatsrdw/100 WBC (Bld)5.5 %1.7-12.0[facility] HospitalNeutrophils Auto (Bld) [#/Vol]Ordered By: Ning Godoy on 60-76-4422Nuujulrhqvu (Bld) [#/Vol]14.6 10 3/uLHigh1.4-6.5FDetwiler Memorial HospitalNeutrophils/100 WBC Auto (Bld)Ordered By: Ning Godoy on 01-14-7072Pexfjqlivvi/100 WBC (Bld)82.0 %High43.0-75.0[facility] HospitalNo Panel InformationOrdered By: Ning Godoy on 23-85-5425Byxboftcmdl # (Auto)0.1 10 3/uL0.0-0.7FDetwiler Memorial HospitalImmature Granulocyte # (Auto)0.29 10 3/uLHigh0.00-0.03M[facility] HospitalPlatelet mean volume Auto (Bld) [Entitic vol]Ordered By: Ning Godoy on 98-16-4601Ajykaxxq mean volume (Bld) [Entitic vol]9.8 fL9.5-13.5FDetwiler Memorial Hospital Platelets Auto (Bld) [#/Vol]Ordered By: Ning Godoy on 50-05-5239Farumxcfc (Bld) [#/Vol]331 10 3/gF938-251AaamrhizcMiddletown HospitalRBC Auto (Bld) [#/Vol]Ordered By: Ning Godoy on 40-84-6759LKA (Bld) [#/Vol]3.85 10 6/uLLow 4.70-6.10[facility] Medical Centererum or plasma anion gap determinationOrdered By: Ning Godoy on 23-21-6314Tghvh gap [Moles/Vol]11.3 mmol/LFDetwiler Memorial HospitalBasic Metabolic Panelon 01-09-2025 Creatinine Clr Calc Czcnsopu30.32NormCleveland Clinic Indian River Hospital Physician GroupComment on above:Performed By: #### CMP, CBC #### [facility] [address] [place] [address] USAGFR/1.73 sq M.predicted MDRD (S/P/Bld) [Vol rate/Area] mL/min/{1.73_m2}NormalThe [facility] Physician GroupComment on above:Performed By: #### CMP, CBC #### [facility] [address] [place] [address] USACalcium [Mass/volume] in Serum or PlasmaOrdered By: Jostin Larose on 45-37-3233Jpkscbm [Mass/Vol]8.8 mg/dLNormal8.6-10.3FDetwiler Memorial HospitalComment on above:Performed By: #### CMP, CBC #### [facility] [address] [place] [address] USACarbon dioxide, total [Moles/volume] in Serum or Plasma Ordered By: Jostin Larose on 58-93-8738TK7 [Moles/Vol]26.9 mmol/XUqtras90.0-31.0 [facility] HospitalComment on above:Performed By: #### CMP, CBC #### [facility] [address] [place] [address] USAChloride [Moles/volume] in Serum or PlasmaOrdered By: Jostin Larose on 09-88-6490Ckfoiqat [Moles/Vol]104 mmol/OAorkyr50-480XvjvmcxxoMiddletown HospitalComment on above:Performed By: #### CMP, CBC #### [facility] [address] [place] [address] USACreatinine [Mass/volume] in Serum or PlasmaOrdered By: Jostin Larose on 14-25-3956Nhpjpvqinz [Mass/Vol]1.15 mg/dLNormal0.70-1.30 [facility] HospitalComment on above:Performed By: #### CMP, CBC #### [facility] [address] [place] [id number] USAECG 12 lead ECGon 98-07-2705MLV 12 lead [facility] [place] [address] [place] [address] Electrocardiograph Report Signed Patient: Mary Mcadams MR#: [id number] : 1955 Acct:[id number] Age/Sex: 69 / M ADM Date: 01/05/25 Loc: Room: [address] [place] [address] Type: ADM IN Attending Dr: Jostin Larose [...] QRS widening ( R in aVL , Turner product ) Marked T wave abnormality, consider anterolateral ischemia Abnormal ECG Confirmed by Romelia Garrido ([id number]) on 01/09/2025 4:57:12 PM Referred By: Electronically Signed By: Romelia Garrido Transcribed By: MUS Signed By Romelia Garrido MD 5 1657[facility] Physician GroupGlomerular filtration rate [Volume Rate/Area] in Serum, Plasma or Blood by CreatinineOrdered By: Jostin Larose on 53-80-8826Aiurldpfnh filtration rate [Volume Rate/Area] in Serum, Plasma or Blood by Creatinine> 60.0 mL/MinMiddletown HospitalGlucose [Mass/volume] in Serum or PlasmaOrdered By: Jostin Larose on 74-21-9498Obzrilh [Mass/Vol]132 mg/mGYljc96-425EbdlrurmdMiddletown HospitalComment on above: ADA recommended reference rangeRandom Glucose [...] reference rangePerformed By: #### CMP, CBC #### [facility] [address] [place] [address] USAMagnesium [Mass/volume] in Serum or PlasmaOrdered By: Jostin Larose on 21-47-9073Gdbmwwmkl [Mass/Vol]2.3 mg/dLNormal1.9-2.7FDetwiler Memorial HospitalComment on above:Result Comment: PERFORMED BY: [facility] [address] [place] [address] PATHOLOGIST [employer] SUPERVISOR REGGIE CASTANEDA M.D.Performed By: #### CMP, CBC #### [facility] [address] [place] [address] USANo Panel InformationOrdered By: Jostin Larose on 01-09-2025 Pharmacy Creatinine Clearance (Chem51.32[facility] Potassium [Moles/volume] in Serum or PlasmaOrdered By: Jostin Larose on 53-47-3490Ujunmtbgg [Moles/Vol]4.9 mmol/LNormal3.5-5.1FDetwiler Memorial HospitalComment on above:Performed By: #### CMP, CBC #### [facility] [address] [place] [address] USASerum or plasma anion gap determinationOrdered By: Jostin Larose on 71-30-1756Uxlyt gap [Moles/Vol]11.0 mmol/LNormal6.0-15.0[facility] HospitalComment on above:Performed By: #### CMP, CBC #### [facility] [address] [place] [address] USASodium [Moles/volume] in Serum or PlasmaOrdered By: Jostin Larose on 15-43-2969Ptsmud [Moles/Vol]137 mmol/YSjqius802-043PbnjviaenMiddletown HospitalComment on above:Performed By: #### CMP, CBC #### [place] [address] USAUrea nitrogen [Mass/volume] in Serum or PlasmaOrdered By: Jostin Larose on 33-10-0332Wmay nitrogen [Mass/Vol]45 mg/dLHigh7-25[facility] HospitalComment on above:Performed By: #### CMP, CBC #### [facility] [address] [place] [id number] USABasic Metabolic Panelon 08-68-4103Cqebk gap [Moles/Vol] 10.0 mmol/LNormal6.0-15.0The [facility] Physician GroupComment on above:Performed By: #### BMP #### [facility] [address] [place] [address] USACalcium [Mass/Vol]8.8 mg/dLNormal8.6-10.3The [facility] Physician GroupComment on above:Performed By: #### BMP #### [facility] [address] [place] [address] USAChloride [Moles/Vol]102 mmol/LYnnyad88-911Eah [facility] Physician GroupComment on above:Performed By: #### BMP #### [facility] [address] [place] [address] USACO2 [Moles/Vol]27.4 mmol/IUzfhmi45.0-31.0The [facility] Physician GroupComment on above:Performed By: #### BMP #### [facility] [address] [place] [address] USACreatinine [Mass/Vol]1.30 mg/dLNormal0.70-1.30The [facility] Physician GroupComment on above:Performed By: #### BMP #### [facility] [address] [place] [address] USACreatinine Clr Calc Zyarpwyq15.62NormalThe [facility] Physician GroupComment on above:Performed By: #### BMP #### [place] [address] USAGFR/1.73 sq M.predicted MDRD (S/P/Bld) [Vol rate/Area] 59.099 mL/min/{1.73_m2}NormalThe [facility] Physician GroupComment on above: Performed By: #### BMP #### [place] [address] USAGlucose [Mass/Vol]142 mg/iZKgfj16-107Tam [facility] Physician GroupComment on above:Result Comment: Random Glucose Reference Range is dependent on time and content of last meal. Glucose of more than 200 mg/dL in a nonstressed, ambulatory subject supports the diagnosis of Diabetes Mellitus. ADA recommended reference rangePerformed By: #### BMP #### [place] [address] USAPotassium [Moles/Vol]4.4 mmol/LNormal3.5-5.1The [facility] Physician GroupComment on above:Performed By: #### BMP #### [facility] [address] [place] [address] USASodium [Moles/Vol]135 mmol/GOkg305-448Wpf [facility] Physician GroupComment on above:Performed By: #### BMP #### [facility] [address] [place] [address] USAUrea nitrogen [Mass/Vol]35 mg/dLHigh7-25The [facility] Physician GroupComment on above:Performed By: #### BMP #### [facility] [address] [place] [address] USAECG 12 lead ECGon 44-68-6671SCD 12 lead [facility]GLICK[facility] [place] [address] [place] [address] Electrocardiograph Report Signed Patient: Mary Mcadams MR#: [id number] [id number] : 1955 Acct:[id number] Age/Sex: 69 / M ADM Date: 01/05/25 Loc: Room: [address] [place] [address] Type: ADM IN Attending Dr: Jostin Larose [...] ischemia Abnormal ECG Confirmed by Andres Herrera ([id number]) on 01/09/2025 3:06:30 PM Referred By: Electronically Signed By: Andres Herrera Transcribed By: MUS Signed By Andres Herrera MD 01/09/25 1506NormalThWeiser Memorial Hospital Physician GroupMagnesiumon 67-38-3589Svqkfuetx [Mass/Vol]1.8 mg/dLLow1.9-2.7The [facility] Physician GroupComment on above: Result Comment: PERFORMED BY: [place] [address] PATHOLOGIST [employer] SUPERVISOR REGGIE CASTANEDA M.D.Performed By: #### BMP #### [place] [address] USABasic Metabolic Panelon 13-10-1876Kqemy gap [Moles/Vol]9.0 mmol/LNormal6.0-15.0The [facility] Physician GroupComment on above:Performed By: #### CMP, CBC #### [place] [address] USACalcium [Mass/Vol]8.7 mg/dLNormal8.6-10.3The [facility] Physician GroupComment on above:Performed By: #### CMP, CBC #### [place] [address] USAChloride [Moles/Vol]106 mmol/LYdfsld62-779Ndc [facility] Physician GroupComment on above:Performed By: #### CMP, CBC #### [place] [address] USACO2 [Moles/Vol]27.0 mmol/CNqkrmx47.0-31.0The [facility] Physician GroupComment on above:Performed By: #### CMP, CBC #### [place] [address] USACreatinine [Mass/Vol]0.98 mg/dLNormal0.70-1.30The [facility] Physician GroupComment on above:Performed By: #### CMP, CBC #### [place] [address] USACreatinine Clr Calc Bwxbantg21.71NormalThe [facility] Physician GroupComment on above:Performed By: #### CMP, CBC #### [place] [address] USAGFR/1.73 sq M.predicted MDRD (S/P/Bld) [Vol rate/Area] mL/min/{1.73_m2}NormalThe [facility] Physician GroupComment on above:Performed By: #### CMP, CBC #### [address] [place] [address] USAGlucose [Mass/Vol]94 mg/qATiabnc25-293Mtp [facility] Physician GroupComment on above:Result Comment: Random Glucose Reference Range is dependent on time and content of last meal. Glucose of more than 200 mg/dL in a nonstressed, ambulatory subject supports the diagnosis of Diabetes Mellitus. ADA recommended reference rangePerformed By: #### CMP, CBC #### [facility] [address] [place] [address] USAPotassium [Moles/Vol]4.0 mmol/LNormal3.5-5.1The [facility] Physician GroupComment on above:Performed By: #### CMP, CBC #### [facility] [address] [place] [address] USASodium [Moles/Vol]138 mmol/XGwxnra284-870Qiv [facility] Physician GroupComment on above:Performed By: #### CMP, CBC #### [facility] [address] [place] [address] USAUrea nitrogen [Mass/Vol]29 mg/dLHigh7-25The [facility] Physician GroupComment on above:Performed By: #### CMP, CBC #### [facility] [address] [place] [address] USAECG 12 lead ECGon 57-20-1160WCV 12 lead [facility]GLICK[facility] [place] [address] [place] [address] Electrocardiograph Report Signed Patient: Mary Mcadams MR#: [id number] [id number] : 1955 Acct:[id number] Age/Sex: 69 / M ADM Date: 01/05/25 Loc: Room: [address] [place] [address] Type: ADM IN Attending Dr: Jostin Larose [...] delay Abnormal ECG Confirmed by Andres Herrera ([id number]) on 01/07/2025 1:35:33 PM Referred By: Electronically Signed By: Andres Herrera Transcribed By: MUS Signed By Andres Herrera MD 01/07/[address] [place] [address] Physician [facility] HospitalErythrocyte distribution width [Ratio] by Automated countOrdered By: Jostin Larose on 85-06-0605Dzdazrbkyqi distribution width (RBC) [Ratio]18.1 %High12.0-14.8[facility] HospitalComment on above:Performed By: #### CMP, CBC #### [place] [address] USAErythrocytes [#/volume] in Blood by Automated countOrdered By: Jostin Larose on 42-68-5015HPC (Bld) [#/Vol]3.23 10*6/uLLow3.90-5.60 [facility] HospitalComment on above:Performed By: #### CMP, CBC #### [facility] [address] [place] [address] USAHematocrit [Volume Fraction] of Blood by Automated count Ordered By: Jostin Larose on 94-24-7444Ijcniqtchq (Bld) [Volume fraction]26.8 % Low38.8-50.0[facility] HospitalComment on above:Performed By: #### CMP, CBC #### [facility] [address] [place] [address] USAHemoglobin [Mass/volume] in BloodOrdered By: Jostin Larose on [id number] (Bld) [Mass/Vol]9.1 g/dLLow13.0-17.0[facility] HospitalComment on above:Performed By: #### CMP, CBC #### [place] [address] USAHemogram CBC Without Diffon [id number] Corpuscular HGB Conc34.0 g/hPRntmsl94.5-35.6The [facility] Physician GroupComment on above: Performed By: #### CMP, CBC #### [facility] [address] [place] [address] USAWhite Blood Count9.4 [CFU]/mLNormal4.1-10.5The [facility] Physician GroupComment on above:Performed By: #### CMP, CBC #### [facility] [address] [place] [address] USALeukocytes [#/volume] corrected for nucleated erythrocytes in Blood by Automated counOrdered By: Jostin Larose on 03-12-0740IIL corrected for nucl RBC Auto (Bld) [#/Vol]9.4 10*3/uL4.1-10.5FC[facility] [Entitic mass] by Automated countOrdered By: Jostin Larose on [id number] (RBC) [Entitic mass]28.2 ryAvdjuh78.5-35.2FDetwiler Memorial HospitalComment on above:Performed By: #### CMP, CBC #### [facility] [address] [place] [address] USAHC Auto (RBC) [Mass/Vol]Ordered By: Jostin Larose on [id number] (RBC) [Mass/Vol]34.0 g/dL32.5-35.6FDetwiler Memorial HospitalMCV [Entitic volume] by Automated countOrdered By: Jostin Larose on 09-04-6344GPK (RBC) [Entitic vol]82.9 fLLow83.5-101Middletown HospitalComment on above:Performed By: #### CMP, CBC #### [facility] [address] [place] [id number] USAMagnesiumon 95-85-2864Nnqdlaazy [Mass/Vol]1.7 mg/dLLow 1.9-2.7The [facility] Physician GroupComment on above:Result Comment: PERFORMED BY: [place] [address] PATHOLOGIST [employer]ANT SUPERVISOR REGGIE CASTANEDA M.D.Performed By: #### CMP, CBC #### [place] [address] USAPlatelet mean volume [Entitic volume] in Blood by Automated countOrdered By: Jostin Larose on 17-16-3981Fwuflhwz mean volume (Bld) [Entitic vol]7.8 fLNormal6.6-10.1FDetwiler Memorial HospitalComment on above:Result Comment: PERFORMED BY: [place] [address] PATHOLOGIST [employer]ANT SUPERVISOR REGGIE CASTANEDA M.D.Performed By: #### CMP, CBC #### [place] [address] USAPlatelets [#/volume] in Blood by Automated countOrdered By: Jostin Larose on 29-38-9522Xzjntuwiy (Bld) [#/Vol]265 10*3/iKRdmxwy227-195 [facility] HospitalComment on above:Performed By: #### CMP, CBC #### [place] [address] USABasic Metabolic Panelon 39-10-7340Zqvpw gap [Moles/Vol] 10.2 mmol/LNormal6.0-15.0The [facility] Physician GroupComment on above:Performed By: #### BMP #### [place] [address] USACalcium [Mass/Vol]8.5 mg/dLLow8.6-10.3The [facility] Physician GroupComment on above:Performed By: #### BMP #### [place] [address] USAChloride [Moles/Vol]106 mmol/RGqkuvh83-723Ohv [facility] Physician GroupComment on above:Performed By: #### BMP #### [place] [address] USACO2 [Moles/Vol]24.8 mmol/CPncyto70.0-31.0The [facility] Physician GroupComment on above:Performed By: #### BMP #### [place] [address] USACreatinine [Mass/Vol]1.07 mg/dLNormal0.70-1.30The [facility] Physician GroupComment on above:Performed By: #### BMP #### [place] [address] USACreatinine Clr Calc Gmormqal33.33NormalThe [facility] Physician GroupComment on above:Result Comment: PERFORMED BY: [place] [address] PATHOLOGIST [employer] SUPERVISOR REGGIE CASTANEDA M.D.Performed By: #### BMP #### [place] [address] USAGFR/1.73 sq M.predicted MDRD (S/P/Bld) [Vol rate/Area] mL/min/{1.73_m2}NormalThe [facility] Physician GroupComment on above:Performed By: #### BMP #### [place] [address] USAGlucose [Mass/Vol]134 mg/fMUpyw43-114Biv [facility] Physician GroupComment on above:Result Comment: Random Glucose Reference Range is dependent on time and content of last meal. Glucose of more than 200 mg/dL in a nonstressed, ambulatory subject supports the diagnosis of Diabetes Mellitus. ADA recommended reference rangePerformed By: #### BMP #### [place] [address] USAPotassium [Moles/Vol]4.0 mmol/LNormal3.5-5.1The [facility] Physician GroupComment on above:Performed By: #### BMP #### [place] [address] USASodium [Moles/Vol]137 mmol/DZkkwxi082-428Ycd [facility] Physician GroupComment on above:Performed By: #### BMP #### [place] [address] USAUrea nitrogen [Mass/Vol]22 mg/dLNormal7-25The [facility] Physician GroupComment on above:Performed By: #### BMP #### [address] [place] [address] USAECH echo transthoracicon 97-57-5260LAY echo transthoracic [facility] [place] [address] [place] [address] Echocardiogram Signed Patient: Mary Mcadams MR#: [id number] : 1955 Acct:[id number] Age/Sex: 69 / M ADM Date: 01/05/25 Loc: Room: [address] [place] [address] Type: ADM IN Attending Dr: Jostin Larose [...] 1040 Signed By: Andres Herrera MD 01/06/25 1610NormC[facility] Physician GroupPartial Thromboplastin Timeon 16-31-6052iPYG Coag (Bld) [Time] 63.1 sHigh25.1-36.5The [facility] Physician GroupComment on above:Result Comment: A hematocrit value greater than 55% may lead to inaccurate results in coagulation testing. Patients having hematocrit values >55% require a special collection tube for coagulation studies. Please contact the laboratory at [phone] for redraw instructions. PERFORMED BY: [facility] [place] [address] PATHOLOGIST [employer]ATION [employer]ANT SUPERVISOR REGGIE CASTANEDA M.D.Performed By: #### BMP #### [facility] [address] [place] [address] USAaPTT Coag (Bld) [Time]63.0 sHigh25.1-36.5The [facility] Physician [facility] HospitalComment on above:Order Comment: List the anticoagulant: HEPARIN, UNFRACTIONATEDResult Comment: A hematocrit value greater than 55% may lead to inaccurate results in coagulation testing. Patients having hematocrit values >55% require a special collection tube for coagulation studies. Please contact the laboratory at [phone] for redraw instructions. PERFORMED BY: [facility] [address] [place] [address] PATHOLOGIST [employer] SUPERVISOR REGGIE CASTANEDA M.D.Performed By: #### BMP #### [facility] [address] [place] [address] USAaPTT in Platelet poor plasma by Coagulation assayOrdered By: Elsie Leonard on 12-31-2575kYCZ Coag (PPP) [Time]63.1 sHigh25.1-36.5 [facility]own HospitalComment on above:A hematocrit value greater than 55% may lead to inaccurate results in coagulation testing. Patientshaving hematocrit values >55% require a special collection tube for coagulation studies. Please contact the laboratory at [phone] for redraw instructions. Basic Metabolic Panelon 96-39-3339Bsunx gap [Moles/Vol]13.5 mmol/LNormal6.0-15.0 The [facility] Physician GroupComment on above:Performed By: #### CBC, BMP ####[facility] [place] [address] USACalcium [Mass/Vol]8.7 mg/dLNormal8.6-10.3The [facility] Physician GroupComment on above: Performed By: #### CBC, BMP ####[facility] [place] [address] USAChloride [Moles/Vol]104 mmol/IUwaeta90-974Qhc [facility] Physician GroupComment on above:Performed By: #### CBC, BMP ####[facility] [place] 6[address]370 USACO2 [Moles/Vol]23.3 mmol/MUjlkbk42.0-31.0The [facility] Physician GroupComment on above:Performed By: #### CBC, BMP ####[place] [id number] USACreatinine [Mass/Vol]0.86 mg/dLNormal0.70-1.30The [facility] Physician GroupComment on above:Performed By: #### CBC, BMP ####[place] [id number] USA Creatinine Clr Calc Gurusbne64.85NormC[facility] Clinic [facility] Physician GroupComment on above:Result Comment: PERFORMED BY: [facility] [address] [place] [address] PATHOLOGIST [employer] SUPERVISOR REGGIE CASTANEDA M.D.Performed By: #### CBC, BMP ####[place] [address] USAGFR/1.73 sq M.predicted MDRD (S/P/Bld) [Vol rate/Area]mL/min/{1.73_m2}NormalThe [facility] Physician GroupComment on above:Performed By: #### CBC, BMP ####[place] [id number] USAGlucose [Mass/Vol]165 mg/rSZpeb65-683Vzf [facility] Physician GroupComment on above:Result Comment: Random Glucose Reference Range is dependent on time and content of last meal. Glucose of more than 200 mg/dL in a nonstressed, ambulatory subject supports the diagnosis of Diabetes Mellitus. ADA recommended reference rangePerformed By: #### CBC, BMP ####[place] [address] USAPotassium [Moles/Vol] 3.8 mmol/LNormal3.5-5.1The [facility] Physician GroupComment on above:Performed By: #### CBC, BMP ####[place] [id number] USASodium [Moles/Vol]137 mmol/SHnywbv837-870Rhg [facility] Physician GroupComment on above:Performed By: #### CBC, BMP ####[place] [address] [place] [address] USAUrea nitrogen [Mass/Vol]11 mg/dL Normal7-25The [facility] Physician GroupComment on above:Performed By: #### CBC, BMP ####[place] [address] USA Basophils [#/volume] in Blood by Automated countOrdered By: Elsie Leonard on 92-84-8771Conipnhtl (Bld) [#/Vol]0.0 10*3/uLNormal0.0-0.2FDetwiler Memorial HospitalComment on above:Result Comment: PERFORMED BY: [place] [address] PATHOLOGIST [employer] SUPERVISOR REGGIE CASTANEDA M.D.Performed By: #### CBC, BMP ####[place] [address] USABasophils/100 leukocytes in Blood by Automated countOrdered By: Elsie Leonard on 92-35-1394Lbwpraxjk/100 WBC (Bld) 0.1 %Normal.Middletown HospitalComment on above:Performed By: #### CBC, BMP ####[place] [address] USACT angio chest PE protocolon 05-88-7985UI angio chest PE protocolLICKING [facility]OR[facility] [place] [address] [place] [address] CT Scan Report Signed Patient: Mary Mcadams MR#: [id number] : 1955 Acct:[id number] Age/Sex: 69 / M ADM Date: 01/05/25 Loc: Room: [address] [place] [address] Type: ADM IN Attending Dr: Altaf Jones [...] Varela M.D. 01/05/2025 11:46 AM Dictation Location: [place] [address] Transcribed By: [facility] 01/05/25 1146 Dictated By: Juliocesar Varela II, MD 01/05/25 1138 Signed By: 01/05/25 1146[facility] Physician GroupComplete Blood Count Auto Diffon 60-85-5255Ifdtjwppaou distribution width (RBC) [Ratio]17.5 %High12.0-14.8The [facility] Physician GroupComment on above:Performed By: #### CBC, BMP ####[address] Hematocrit (Bld) [Volume fraction]29.8 %Low38.8-50.0The [facility] Physician GroupComment on above:Performed By: #### CBC, BMP ####[place] [address] USAHemoglobin (Bld) [Mass/Vol]9.9 g/dLLow 13.0-17.0The [facility] Physician GroupComment on above:Performed By: #### CBC, BMP ####[address] StreetMCH (RBC) [Entitic mass]28.0 fqThvjvf53.5-35.2The [facility] Physician GroupComment on above:Performed By: #### CBC, BMP ####[place] [address] USAMCV (RBC) [Entitic vol]84.1 xUOldskc82.5-101 The [facility] Physician GroupComment on above:Performed By: #### CBC, BMP ####[place] [address] USAMean Corpuscular HGB Conc33.3 g/mSEiqkxj44.5-35.6The [facility] Physician GroupComment on above:Performed By: #### CBC, BMP ####[place] [address] USANRBC%0.0 /100{WBC}Normal0-0.5The [facility] Physician GroupComment on above:Performed By: #### CBC, BMP ####[place] [address] USAPlatelet mean volume (Bld) [Entitic vol]7.7 fLNormal6.6-10.1The [facility] Physician GroupComment on above:Performed By: #### CBC, BMP ####[place] [address] USAPlatelets (Bld) [#/Vol]274 10*3/rGIwrkry024-639Kwg [facility] Physician [facility] HospitalComment on above:Performed By: #### CBC, BMP ####[place] [address] USARBC (Bld) [#/Vol]3.54 10*6/uLLow3.90-5.60The [facility] Physician GroupComment on above:Performed By: #### CBC, BMP ####[place] [address] USAWhite Blood Count8.6 [CFU]/mLNormal4.1-10.5The [facility] Physician [facility] HospitalComment on above:Performed By: #### CBC, BMP ####[place] [address] USA Eosinophils [#/volume] in Blood by Automated countOrdered By: Elsie Leonard on 07-94-1072Hceeyrkhexz (Bld) [#/Vol]0.0 10*3/uLNormal0.0-0.45M[facility]letown HospitalComment on above:Performed By: #### CBC, BMP ####[place] [id number] USAEosinophils/100 leukocytes in Blood by Automated countOrdered By: Elsie Leonard on 01-05-2025 Eosinophils/100 WBC (Bld)0.1 %Normal.Middletown HospitalComment on above:Performed By: #### CBC, BMP ####[place] [id number] USALeukocytes [#/volume] in Blood by Automated count Ordered By: Elsie Leonard on 27-12-6805TRF (Bld) [#/Vol]8.6 10*3/uLNormal 4.1-10.5FDetwiler Memorial HospitalComment on above:Performed By: #### CBC, BMP ####[place] [address] USALymphocytes [#/volume] in Blood by Automated countOrdered By: Elsie Kaelyne on 38-64-5830Wzpbcqnbwrx (Bld) [#/Vol]0.4 10*3/uLLow1.00-4.8M[facility]letown HospitalComment on above:Performed By: #### CBC, BMP ####[address] [address] USALymphocytes/100 leukocytes in Blood by Automated countOrdered By: Elsie Kaelyne on 01-05-2025 Lymphocytes/100 WBC (Bld)5.1 %Normal.Middletown HospitalComment on above:Performed By: #### CBC, BMP ####[address] [address] USAMonocytes [#/volume] in Blood by Automated count Ordered By: Elsie Leonard on 78-51-3350Ydtbbolrz (Bld) [#/Vol]0.1 10*3/uL Normal0.0-0.8M[facility]own HospitalComment on above:Performed By: #### CBC, BMP ####[address] [address] USAMonocytes/100 leukocytes in Blood by Automated countOrdered By: Elsie Leonard on 87-56-4358Mavdbnsbk/100 WBC (Bld)1.3 %Normal.M[facility]letown HospitalComment on above:Performed By: #### CBC, BMP ####[address] [address] USANeutrophils [#/volume] in Blood by Automated countOrdered By: Elsie Horacio on 01-05-2025 Neutrophils (Bld) [#/Vol]8.1 10*3/uLHigh1.8-7.7FDetwiler Memorial Hospital Comment on above:Performed By: #### CBC, BMP ####[address] [address] USANeutrophils/100 leukocytes in Blood by Automated countOrdered By: Elsie Horacio on 26-32-5061Bgryqtxrlpy/100 WBC (Bld)93.4 %Normal.M[facility]letown HospitalComment on above:Performed By: #### CBC, BMP ####[facility] [address] [place] [address] USANucleated erythrocytes [Presence] in Blood by Automated countOrdered By: Elsie Leonard on 79-51-8933Zpxjhvqzk RBC Auto Ql (Bld)0.0 /100{WBC}0-0.5 [facility]letown HospitalPartial Thromboplastin Timeon 67-02-5284mPGA Coag (Bld) [Time]50.1 sHigh25.1-36.5The [facility] Physician GroupComment on above:Result Comment: A hematocrit value greater than 55% may lead to inaccurate results in coagulation testing. Patients having hematocrit values >55% require a special collection tube for coagulation studies. Please contact the laboratory at [phone] for redraw instructions. PERFORMED BY: [place] [address] PATHOLOGIST [employer] SUPERVISOR REGGIE CASTANEDA M.D.Performed By: #### BMP #### [facility] [address] [place] [address] USAaPTT Coag (Bld) [Time]54.6 sHigh25.1-36.5The [facility] Physician GroupComment on above:Result Comment: A hematocrit value greater than 55% may lead to inaccurate results in coagulation testing. Patients having hematocrit values >55% require a special collection tube for coagulation studies. Please contact the laboratory at [phone] for redraw instructions. PERFORMED BY: [place] [id number] PATHOLOGIST PREPAR[employer]ANT SUPERVISOR REGGIE CASTANEDA M.D.Performed By: #### BMP #### [facility] [address] [place] [address] USAaPTT Coag (Bld) [Time]40.4 sHigh25.1-36.5The [facility] Physician GroupComment on above:Result Comment: A hematocrit value greater than 55% may lead to inaccurate results in coagulation testing. Patients having hematocrit values >55% require a special collection tube for coagulation studies. Please contact the laboratory at [phone] for redraw instructions. PERFORMED BY: [place] [phone] PATHOLOGIST PRE[employer]ANT SUPERVISOR REGGIE CASTANEDA M.D.Performed By: #### PTT ####[address] [address] USATroponin I High Sensitivityon 72-69-4843Xluegebw I High Diibqqinrxi932Nys scale [address] Physician GroupComment on above:Result Comment: Critical Result : Called to and read back by: TRAVON GUZMAN at: 01/05/2025 12:36:23 by:DIANE The Troponin units of report have been changed to meet the Chest Pain Accreditation requirement, element EC5.M1l2. Troponin units are changed from pg/ml to ng/L. Also, the decimal is removed and results are in whole numbers. PERFORMED BY: [place] [phone] PATHOLOGIST PRE[employer]ANT SUPERVISOR REGGIE CASTANEDA M.D.Performed By: #### CMP, CBC #### [address] [address] USATroponin I High Uinsewjdhmx482Ojn scale [address] Physician [facility] HospitalComment on above:Result Comment: Critical Result : Called to and read back by: TRAVON GUZMAN at: 01/05/2025 08:10:30 by:DIANE The Troponin units of report have been changed to meet the Chest Pain Accreditation requirement, element EC5.M1l2. Troponin units are changed from pg/ml to ng/L. Also, the decimal is removed and results are in whole numbers. PERFORMED BY: [place] [phone] PATHOLOGIST PREPARATION [employer]ANT SUPERVISOR REGGIE CASTANEDA M.D.Performed By: #### HS TROP ####[address] [address] USATroponin I High Lzumktgrkll344Czd scale [address] Physician [facility] HospitalComment on above:Result Comment: Critical Result : Called to and read back by: AMY DEGROOT at: 01/05/2025 04:21:22 by:[id number] The Troponin units of report have been changed to meet the Chest Pain Accreditation requirement, element EC5.M1l2. Troponin units are changed from pg/ml to ng/L. Also, the decimal is removed and results are in whole numbers. PERFORMED BY: [facility] [address] [place] [id number] PATHOLOGIST PRE[employer]ATION [employer]ANT SUPERVISOR REGGIE CASTANEDA M.D.Performed By: #### HS TROP ####[facility] [place] [address] USATroponin I.cardiac [Mass/volume] in Serum or Plasma by Detection limit <= 0.01 ng/mLOrdered By: Elsie Leonard on 17-90-3067Rhvmkuln I.cardiac DL <= 0.01 ng/mL [Mass/Vol]398 ng/LCritically high 0-20Middletown HospitalComment on above:Critical Result : Called to and read back by: TRAVON GUZMAN at: 01/05/2025 12:36:23 by:KBThe Troponinunits of report have been changed to meet the Chest Pain Accreditation requirement, element EC5.M1l2. Troponin units are changed from pg/ml to ng/L. Also, the decimal is removed and results are in whole numbers.X-ray reportOrdered By: Juliocesar Varela on 51-67-1493Sxctd reportLICKING MEMORIAL [facility]OS[facility] [place] [address] [place] [address] XRay Report Signed Patient: Mary Mcadams MR#: [id number] : 1955 Acct:[id number] Age/Sex: 69 / M ADM Date: 5 Loc: Room: [address] [place] [address] Type: ADM IN Attending Dr: Altaf Jones [...] Varela M.D. 01/05/2025 10:46 AM Dictation Location: [place] [address] Transcribed By: [facility] 01/05/25 104 Dictated By: Juliocesar Varela II, MD 01/05/25 104 Signed By: 01/05/25 [facility] Work Phone: XR chest 1V portableon 86-42-8869II chest 1V portable [facility] [address] [place] [address] [place] [address] XRay Report Signed Patient: Mary Mcadams MR#: [id number] : 1955 Acct:[id number] Age/Sex: 69 / M ADM Date: 01/05/25 Loc: Room: [address] [place] [address] Type: ADM IN Attending Dr: Altaf Jones [...] Varela M.D. 01/05/2025 10:46 AM Dictation Location: [place] [address] Transcribed By: [facility] 01/05/25 1046 Dictated By: Juliocesar Varela II, MD 01/05/25 1044 Signed By: 01/05/25 1046[facility] Lake Medical CenterAlanine aminotransferase [Enzymatic activity/volume] in Serum or PlasmaOrdered By: Cee Proctor on 47-69-0085OWQ [Catalytic activity/Vol]9 U/LNormal756 Ross StreetComment on above:Performed By: #### CBC, CK, HS TROP, BNP, CMP ####[facility] [address] [place] [address] USAAlbumin [Mass/volume] in Serum or Plasma by Bromocresol green (BCG) dye binding metho Ordered By: Cee Proctor on 82-34-8966Qqzgsck BCG dye [Mass/Vol]3.8 g/dL3.5-5.7 [facility]own HospitalAlkaline phosphatase [Enzymatic activity/volume] in Serum or PlasmaOrdered By: Cee Proctor on 86-39-7422ZAS [Catalytic activity/Vol]140 U/UOubn72-224Jztsypaxd[address] [place] [address] Comment on above:Performed By: #### CBC, CK, HS TROP, BNP, CMP ####[facility] [address] [place] [address] USAAnti-Xa UF Heparinon 55-86-4619Spsi-Xa UF Heparin1.30Off scale high0.30-0.70The [facility] Physician [facility] HospitalComment on above:Result Comment: Critical value result called at 0136 on 01/05/25 Use the aPTT protocol when triglycerides are > 800 mg/dL, total bilirubin is > 20 mg/dL and/or patient has received a DOAC, Fondaparinux or LMWH within 72 hours AND baseline anti-Xa level is > 0.7 units/mL PERFORMED BY: [facility] [address] [place] [id number] PATHOLOGIST [employer] SUPERVISOR REGGIE CASTANEDA M.D.Performed By: #### UFHEP, PT ####[facility] [place] [address] USAArterial Blood Gason 16-46-8712CDH Base Excess-2.4 mmol/LNormal-3.0-3.0The [facility] Physician GroupComment on above:Performed By: #### ABG ####Point of Care testing,ABG Frac Inspired O232 % NormalThe [facility] Physician GroupComment on above:Performed By: #### ABG ####Point of Care testing,ABG Oxygen Content6.8 mmol/LNormal6.6-9.7The [facility] Physician GroupComment on above:Performed By: #### ABG ####Point of Care testing,ABG Oxygen Ieucvsjfco43.7 %Fxcvzr75.0-100.0The [facility] Physician Group Comment on above:Performed By: #### ABG ####Point of Care testing,ABG DIY730.2 mm[Hg]Deyiow76.0-45.0The [facility] Physician GroupComment on above:Performed By: #### ABG ####Point of Care testing,ABG PH7.13Lywdiq9.35-7.45The [facility] Physician GroupComment on above:Performed By: #### ABG ####Point of Care testing,ABG PO291.5 mm[Hg]Pmvwqk77.0-100.0The [facility] Physician GroupComment on above:Performed By: #### ABG ####Point of Care testing,Respiratory Critical NormalThe [facility] Physician GroupComment on above:Result Comment: Critical Value called on: 01/04/2025 at 22:22 PERFORMED BY: [facility] [address] [place] [address] PATHOLOGIST [employer] SUPERVISOR REGGIE CASTANEDA M.D.Performed By: #### ABG ####Point of Care testing,VBG Draw SiteRigCoral Gables Hospital Physician GroupComment on above:Performed By: #### ABG ####Point of Care testing,Arterial Blood GasOrdered By: Cee Proctor on 78-16-5677SQ9 [Moles/Vol]24.3 mmol/FOcjtcu40.0-27.0M[facility]letown HospitalComment on above:Performed By: #### ABG ####Point of Care testing,HCO3 (Bld) [Moles/Vol]23.0 mmol/UHacqtm46.0-29.0M[facility]letown HospitalComment on above:Performed By: #### ABG ####Point of Care testing, Aspartate aminotransferase [Enzymatic activity/volume] in Serum or PlasmaOrdered By: Cee Proctor on 41-54-0494TND [Catalytic activity/Vol]21 U/NOumagd01-17 [facility]own HospitalComment on above:Performed By: #### CBC, CK, HS TROP, BNP, CMP ####[place] [address] [place] [id number] USABNP ser/plasOrdered By: Cee Proctor on 21-63-7658Jydabvbpxut peptide B (Bld) [Mass/Vol]268.0 pg/mLBluefield Regional Medical Center5-100M[facility]own HospitalComment on above:Result Comment: PERFORMED BY: [place] [address] [place] [address] PATHOLOGIST [employer] SUPERVISOR REGGIE CASTANEDA M.D.Performed By: #### CBC, CK, HS TROP, BNP, CMP ####[address] [address] USABasophils [#/volume] in Blood by Automated countOrdered By: Cee Proctor on 42-55-5673Pzilfresn (Bld) [#/Vol]0.1 10*3/uLNormal0.0-0.2FDetwiler Memorial HospitalComment on above:Result Comment: PERFORMED BY: [facility] [address] [place] [id number] PATHOLOGIST [employer] SUPERVISOR REGGIE CASTANEDA M.D.Performed By: #### CBC, CK, HS TROP, BNP, CMP ####[place] [id number] USABasophils/100 leukocytes in Blood by Automated countOrdered By: Nidgreer Proctor on 01-04-2025 Basophils/100 WBC (Bld)0.6 %Normal.[facility]letown HospitalComment on above:Performed By: #### CBC, CK, HS TROP, BNP, CMP ####[place] [id number] USABilirubin.total [Mass/volume] in Serum or PlasmaOrdered By: Faustoal Chorubinaa on 83-74-0224Pucrynkhc [Mass/Vol]0.4 mg/dLNormal0.3-1.0M[facility]letown HospitalComment on above:Performed By: #### CBC, CK, HS TROP, BNP, CMP ####[place] [address] USACalcium [Mass/volume] in Serum or PlasmaOrdered By: Faustoal Chogael on 85-71-7255Hcpjsvl [Mass/Vol]8.8 mg/dLNormal8.6-10.3FDetwiler Memorial HospitalComment on above:Performed By: #### CBC, CK, HS TROP, BNP, CMP ####[place] [id number] USACarbon dioxide, total [Moles/volume] in Serum or PlasmaOrdered By: Nidal Choutigista on 38-82-6230NE1 [Moles/Vol]25.3 mmol/NWkifmw55.0-31.0M[facility]letown HospitalComment on above:Performed By: #### CBC, CK, HS TROP, BNP, CMP ####[place] [id number] [place] Chloride [Moles/volume] in Serum or PlasmaOrdered By: Nidal Choujaa on 81-30-4122Ewpcoxle [Moles/Vol]104 mmol/HZaolcz94-362OcrcilsjsMiddletown HospitalComment on above:Performed By: #### CBC, CK, HS TROP, BNP, CMP ####[address] Complete Blood Count Auto Diffon 77-59-6418Dyrf Corpuscular HGB Conc33.4 g/dL Yxnqee34.5-35.6The [facility] Physician GroupComment on above:Performed By: #### CBC, CK, HS TROP, BNP, CMP ####[place] [address] USAMonocytes/100 WBC (Bld)17.47 %Normal0.00-20.00The [facility] Physician GroupComment on above:Performed By: #### CBC, CK, HS TROP, BNP, CMP ####[place] [address] USANRBC%0.1 /100{WBC}Normal0-0.5The [facility] Physician GroupComment on above: Performed By: #### CBC, CK, HS TROP, BNP, CMP ####[place] [address] USAWhite Blood Count10.2 [CFU]/mLNormal 4.1-10.5The [facility] Physician GroupComment on above:Performed By: #### CBC, CK, HS TROP, BNP, CMP ####[place] [id number] USAComprehensive Metabolic Panelon 05-35-7170Azcywyi [Mass/Vol] 3.8 g/dLNormal3.5-5.7The [facility] Physician GroupComment on above:Performed By: #### CBC, CK, HS TROP, BNP, CMP ####[place] [id number] USACreatinine Clr Calc Fjkhoiak87.60NormalThe [facility] Physician GroupComment on above:Result Comment: PERFORMED BY: [facility] [address] [place] [address] PATHOLOGIST [employer]PER[employer] REGGIE CASTANEDA M.D.Performed By: #### CBC, CK, HS TROP, BNP, CMP ####[place] [address] [place] [address] USAGFR/1.73 sq M.predicted MDRD (S/P/Bld) [Vol rate/Area]mL/min/{1.73_m2}NormalThe [facility] Physician GroupComment on above:Performed By: #### CBC, CK, HS TROP, BNP, CMP ####[place] [id number] [place] Creatine kinase [Enzymatic activity/volume] in Serum or PlasmaOrdered By: Cee Proctor on 83-67-9753RE [Catalytic activity/Vol]30 U/PGbwonn30-983OdbsdqvshMiddletown HospitalComment on above:Performed By: #### CBC, CK, HS TROP, BNP, CMP ####[place] [id number] USACreatinine [Mass/volume] in Serum or PlasmaOrdered By: Cee Proctor on 52-60-9064Dhustolybr [Mass/Vol]0.88 mg/dLNormal0.70-1.30M[facility]letown HospitalComment on above:Performed By: #### CBC, CK, HS TROP, BNP, CMP ####[address] [address] USAECG 12 lead ECGon 71-37-2194UXM 12 lead [facility]ICK[facility] [address] [place] [address] [place] [address] Electrocardiograph Report Signed Patient: Mary Mcadams MR#: [id number] : 1955 Acct:[id number] Age/Sex: 69 / M ADM Date: 01/05/25 Loc: Room: [address] [place] [address] Type: ADM IN Attending Dr: Jostin Larose [...] in Anterolateral leads Confirmed by Andres Herrera ([id number]) on 01/06/2025 11:21:26 AM Referred By: Electronically Signed By: Andres Herrera Transcribed By: MUS Signed By Andres Herrera MD 01/06/25 1121[facility] Phys[facility] GroupEosinophils [#/volume] in Blood by Automated countOrdered By: Cee Proctor on 63-02-3253Cxpuwtwdewu (Bld) [#/Vol]0.3 10*3/uLNormal0.0-0.45M[facility]letown HospitalComment on above:Performed By: #### CBC, CK, HS TROP, BNP, CMP ####[place] [id number] USAEosinophils/100 leukocytes in Blood by Automated countOrdered By: Cee Proctor on 91-20-4865Rkibxrujlbg/100 WBC (Bld)3.2 %Normal.M[facility]letown HospitalComment on above:Performed By: #### CBC, CK, HS TROP, BNP, CMP ####[place] [id number] USAErythrocyte distribution width [Ratio] by Automated countOrdered By: Cee Proctor on 80-46-4333Bvkwpdcigdu distribution width (RBC) [Ratio]17.5 %High12.0-14.8M[facility]letown HospitalComment on above:Performed By: #### CBC, CK, HS TROP, BNP, CMP ####[place] [id number] USAErythrocytes [#/volume] in Blood by Automated countOrdered By: Cee Proctor on 41-95-3976VPO (Bld) [#/Vol] 3.80 10*6/uLLow3.90-5.60M[facility]own HospitalComment on above: Performed By: #### CBC, CK, HS TROP, BNP, CMP ####[place] [id number] USAGlomerular filtration rate [Volume Rate/Area] in Serum, Plasma or Blood by CreatinineOrdered By: Cee Proctor on 96-30-7553Pcbzmzcfji filtration rate [Volume Rate/Area] in Serum, Plasma or Blood by Creatinine> 60.0 mL/MinMiddletown HospitalGlucose [Mass/volume] in Serum or PlasmaOrdered By: Cee Proctor on 92-02-1841Cpcvxyj [Mass/Vol]155 mg/zBPdsk44-748DvmvcjpoyMiddletown HospitalComment on above: ADA recommended reference rangeRandom Glucose [...] #### CBC, CK, HS TROP, BNP, CMP ####[place] [id number] [place] Hematocrit [Volume Fraction] of Blood by Automated countOrdered By: Cee Proctor on 01-28-8784Blcbidnuvv (Bld) [Volume fraction]31.7 %Low38.8-50.0 [facility]own HospitalComment on above:Performed By: #### CBC, CK, HS TROP, BNP, CMP ####[place] [id number] USAHemoglobin [Mass/volume] in BloodOrdered By: Cee Proctor on 44-08-7223Pzxdrfpyzm (Bld) [Mass/Vol]10.6 g/dLLow13.0-17.0M[facility]own HospitalComment on above:Performed By: #### CBC, CK, HS TROP, BNP, CMP ####[place] [id number] USAHeparin anti-Xa unfractionatedOrdered By: Cee Proctor on 08-40-9048Gvubcca unfractionated Chromogenic method Qn (PPP)1.30 [IU]/mLCritically high0.30-0.70 Midd[facility]own HospitalComment on above:Critical valueresult calledat 0136 on 01/05/25 Use the aPTT protocol when triglycerides are > 800 mg/dL,total bilirubin is > 20 mg/dL and/or patient has received aDOAC, Fondaparinux or LMWH within 72 hours AND baselineanti-Xa level is > 0.7 units/mLINR in Platelet poor plasma by Coagulation assayOrdered By: Cee Proctor on 44-25-1757XLG Coag (PPP) [Relative time]1.7 {INR}NormalMiddletown HospitalComment on above:INR Therapeutic Range A) Pre- and [...] 3 - 4.5Performed By: #### UFHEP, PT ####[facility] [address] [place] [address] USALeukocytes [#/volume] corrected for nucleated erythrocytes in Blood by Automated counOrdered By: Cee Proctor on 04-64-4510UJJ corrected for nucl RBC Auto (Bld) [#/Vol]10.2 10*3/uL4.1-10.5FDetwiler Memorial Hospital Leukocytes [#/volume] in Blood by Automated countOrdered By: Cee Proctor on 04-22-0786XVO (Bld) [#/Vol]10.2 10*3/uLNormal4.1-10.5FDetwiler Memorial HospitalComment on above:Performed By: #### CBC, CK, HS TROP, BNP, CMP ####[place] [address] Lymphocytes [#/volume] in Blood by Automated countOrdered By: Cee Proctor on 26-31-8283Fubxjofsixm (Bld) [#/Vol]1.2 10*3/uLNormal1.00-4.8M[facility]letown HospitalComment on above:Performed By: #### CBC, CK, HS TROP, BNP, CMP ####[address] Lymphocytes/100 leukocytes in Blood by Automated countOrdered By: Cee Proctor on 62-82-3167Xghoecirlry/100 WBC (Bld)12.3 %Normal.Middletown HospitalComment on above:Performed By: #### CBC, CK, HS TROP, BNP, CMP ####[place] [id number] [facility] [Entitic mass] by Automated countOrdered By: Cee Proctor on 61-62-7148LDK (RBC) [Entitic mass]27.8 qfFylbbb00.5-35.2FDetwiler Memorial Hospital Comment on above:Performed By: #### CBC, CK, HS TROP, BNP, CMP ####[place] [id number] [facility] Auto (RBC) [Mass/Vol]Ordered By: Cee Proctor on 67-68-9900XJWG (RBC) [Mass/Vol]33.4 g/dL 32.5-35.6FRegional Medical CenterV [Entitic volume] by Automated countOrdered By: Cee Proctor on 38-37-1819QWR (RBC) [Entitic vol]83.3 fLLow 83.5-101Middletown HospitalComment on above:Performed By: #### CBC, CK, HS TROP, BNP, CMP ####[address] [address] USAMonocyte distribution width [Entitic volume] in Blood by AutomatedOrdered By: Cee Proctor on 33-79-4551Nyfgdzie distribution width Auto (Bld) [Entitic vol]17.47 %0.00-20.00[facility] Monocytes [#/volume] in Blood by Automated countOrdered By: Nidal Hitesh on 63-62-8093Neadqtyqq (Bld) [#/Vol]0.6 10*3/uLNormal0.0-0.8M[facility]own HospitalComment on above:Performed By: #### CBC, CK, HS TROP, BNP, CMP ####[place] [id number] [place] Monocytes/100 leukocytes in Blood by Automated countOrdered By: Cee Proctor on 96-61-9281Haqzarrzl/100 WBC (Bld)6.2 %Normal.[facility] Comment on above:Performed By: #### CBC, CK, HS TROP, BNP, CMP ####[address] [address] USANeutrophils [#/volume] in Blood by Automated countOrdered By: Cee Proctor on 01-04-2025 Neutrophils (Bld) [#/Vol]7.9 10*3/uLHigh1.8-7.7FDetwiler Memorial Hospital Comment on above:Performed By: #### CBC, CK, HS TROP, BNP, CMP ####[address] [address] USANeutrophils/100 leukocytes in Blood by Automated countOrdered By: Cee Proctor on 01-04-2025 Neutrophils/100 WBC (Bld)77.7 %Normal.M[facility]letown HospitalComment on above:Performed By: #### CBC, CK, HS TROP, BNP, CMP ####[address] [address] USANo Panel InformationOrdered By: Cee Proctor on 09-40-3279Zssdvmhi Blood Base Excess-2.4 mmol/L-3.0-3.0 [facility]own HospitalArterial Blood Oxygen Content6.8 mmol/L6.6-9.7 [facility] HospitalArterial Blood Oxygen Eetpehdasw60.7 % 95.0-100.0M[facility]own HospitalArterial Blood Partial Pressure CO2 42.2 mm[Hg]35.0-45.0M[facility] HospitalArterial Blood Partial Pressure O291.5 mm[Hg]80.0-100.0[facility] HospitalArterial Blood pH7.357.35-7.45M[facility]own HospitalBlood Gas Critical ValueSee [facility] County Memorial Hospital - WestComment on above:Critical Value called on: 01/04/2025 at 22:22Blood Gas Sample SiteRight [facility], BeachwoodFiO232 %[facility] HospitalPharmacy Creatinine Clearance (Chem69.60M[facility]letown HospitalNucleated erythrocytes [Presence] in Blood by Automated countOrdered By: Cee Proctor on 01-04-2025 Nucleated RBC Auto Ql (Bld)0.1 /100{WBC}0-0.5FDetwiler Memorial Hospital Platelet mean volume [Entitic volume] in Blood by Automated countOrdered By: Cee Proctor on 18-62-8662Aabcbufq mean volume (Bld) [Entitic vol]7.6 fLNormal 6.6-10.1FDetwiler Memorial HospitalComment on above:Performed By: #### CBC, CK, HS TROP, BNP, CMP ####[facility] [address] [place] [address] USAPlatelets [#/volume] in Blood by Automated count Ordered By: Cee Proctor on 23-48-2144Kpjeguhig (Bld) [#/Vol]281 10*3/uLNormal 150-450Middletown HospitalComment on above:Performed By: #### CBC, CK, HS TROP, BNP, CMP ####[facility] [address] [place] [address] USAPotassium [Moles/volume] in Serum or PlasmaOrdered By: Cee Proctor on 17-32-3765Qauhkmzvx [Moles/Vol]3.6 mmol/LNormal3.5-5.1FDetwiler Memorial HospitalComment on above:Performed By: #### CBC, CK, HS TROP, BNP, CMP ####[place] [address] [place] [address] USAProtein [Mass/volume] in Serum or PlasmaOrdered By: Cee Proctor on 28-82-9210Xoljxtl [Mass/Vol]6.6 g/dLNormal6.4-8.9M[facility]own HospitalComment on above:Performed By: #### CBC, CK, HS TROP, BNP, CMP ####[place] [id number] [place] Prothrombin time (PT)Ordered By: Cee Proctor on 63-52-6141AV Coag (PPP) [Time] 18.9 sHigh9.0-12.9M[facility]letown HospitalComment on above:A hematocrit value greater than 55% may lead to inaccurate results in coagulation testing. Patientshaving hematocrit values >55% require a special collection tube for coagulation studies. Please contact the laboratory at [phone] for redraw instructions.Result Comment: A hematocrit value greater than 55% may lead to inaccurate results in coagulation testing. Patients having hematocrit values >55% require a special collection tube for coagulation studies. Please contact the laboratory at [phone] for redraw instructions.Performed By: #### UFHEP, PT ####[address] [address] USASerum globulin measurement by calculation (mass/volume)Ordered By: Cee Proctor on 94-09-3724Icpcnjpz (S) [Mass/Vol]2.8 g/dLNoSheltering Arms HospitalComment on above:Performed By: #### CBC, CK, HS TROP, BNP, CMP ####[address] [address] USASerum or plasma albumin/globulin mass ratioOrdered By: Cee Proctor on 74-89-9455Qzxyyqd/Globulin [Mass ratio]1.4 {ratio}Normal [facility]own HospitalComment on above:Performed By: #### CBC, CK, HS TROP, BNP, CMP ####[place] [address] [place] [address] USASerum or plasma anion gap determinationOrdered By: Cee Proctor on 09-82-4109Klymp gap [Moles/Vol]11.3 mmol/LNormal6.0-15.0M[facility]own HospitalComment on above:Performed By: #### CBC, CK, HS TROP, BNP, CMP ####[place] [address] [place] [address] USASodium [Moles/volume] in Serum or PlasmaOrdered By: Cee Proctor on 02-32-8238Eiexnz [Moles/Vol]137 mmol/IXqxzba304-439YydihcpsmMiddletown HospitalComment on above:Performed By: #### CBC, CK, HS TROP, BNP, CMP ####[place] [address] [place] [address] USATroponin I High Sensitivityon 55-70-5983Omutxlyw I High Drrphrzmgrb069Dio scale high0-20The [facility] Physician GroupComment on above:Result Comment: Critical Result : Called to and read back by: VALENTIN CHAVEZ at: 01/05/2025 00:41:06 by:[id number] The Troponin units of report have been changed to meet the Chest Pain Accreditation requirement, element EC5.M1l2. Troponin units are changed from pg/ml to ng/L. Also, the decimal is removed and results are in whole numbers. PERFORMED BY: [address] [address] PATHOLOGIST [employer] SUPERVISOR REGGIE CASTANEDA M.D.Performed By: #### CMP, CBC #### [place] [id number] USATroponin I High Btnaafqpsda04Zrgt4-16Iwf [facility] Physician GroupComment on above:Result Comment: The Troponin units of report have been changed to meet the Chest Pain Accreditation requirement, element EC5.M1l2. Troponin units are changed from pg/ml to ng/L. Also, the decimal is removed and results are in whole numbers. PERFORMED BY: [facility] [address] [place] [address] PATHOLOGIST [employer] SUPERVISOR REGGIE CASTANEDA M.D.Performed By: #### CBC, CK, HS TROP, BNP, CMP ####[address] [address] USATroponin I.cardiac [Mass/volume] in Serum or Plasma by Detection limit <= 0.01 ng/mLOrdered By: Cee Proctor on 21-70-6585Gsvbzquf I.cardiac DL <= 0.01 ng/mL [Mass/Vol]135 ng/LCritically high0-M[facility]letown HospitalComment on above: Critical Result : Called to and read back by: VALENTIN CHAVEZ at: 01/05/2025 00:41:06 by:[id number] units of report have been changed to meet the Chest Pain Accreditation requirement, element EC5.M1l2. Troponin units are changed from pg/ml to ng/L. Also, the decimal is removed and results are in whole numbers.Urea nitrogen [Mass/volume] in Serum or PlasmaOrdered By: Cee Proctor on 94-35-3243Mfqs nitrogen [Mass/Vol]11 mg/dLNormal12-06M[facility]own HospitalComment on above:Performed By: #### CBC, CK, HS TROP, BNP, CMP ####[address] [address] USABasic Metabolic Panelon 37-88-4211Yczzpdhsvi Clr Calc Excfxsde30.31NoLifeBrite [facility] Physician GroupComment on above:Result Comment: PERFORMED BY: [facility] [address] [place] [address] PATHOLOGIST [employer] SUPERVISOR REGGIE CASTANEDA M.D.Performed By: #### CBC, BMP ####[address] [address] USAGFR/1.73 sq M.predicted MDRD (S/P/Bld) [Vol rate/Area]mL/min/{1.73_m2}NormalThe [facility] Physician GroupComment on above:Performed By: #### CBC, BMP ####[address] [address] USABasophils [#/volume] in Blood by Automated count Ordered By: Silvano Reed on 64-73-0203Scnemjlbl (Bld) [#/Vol]0.0 10*3/uL Normal0.0-0.2FDetwiler Memorial HospitalComment on above:Result Comment: PERFORMED BY: [facility] [address] [place] [address] PATHOLOGIST [employer] SUPERVISOR REGGIE CASTANEDA M.D.Performed By: #### CBC, BMP ####[address] [address] USABasophils/100 leukocytes in Blood by Automated countOrdered By: Silvano Reed on 19-04-3704Mmeolcvts/100 WBC (Bld)0.1 %Normal.M[facility]letown HospitalComment on above:Performed By: #### CBC, BMP ####[address] [address] USACalcium [Mass/volume] in Serum or PlasmaOrdered By: Silvano Reed on 74-20-6012Dykzhmf [Mass/Vol]9.1 mg/dLNormal8.6-10.3FDetwiler Memorial HospitalComment on above:Performed By: #### CBC, BMP ####[address] [address] USACarbon dioxide, total [Moles/volume] in Serum or PlasmaOrdered By: Silvano Reed on 46-10-8239NE9 [Moles/Vol]28.1 mmol/GUlhipp96.0-31.0M[facility]own HospitalComment on above:Performed By: #### CBC, BMP ####[address] [address] USAChloride [Moles/volume] in Serum or PlasmaOrdered By: Silvano Reed on 11-12-2024 Chloride [Moles/Vol]100 mmol/TYmrdfb50-466AckjmvfnoMiddletown Hospital Comment on above:Performed By: #### CBC, BMP ####[address] [address] USAComplete Blood Count Auto Diffon 15-73-9732Ahnm Corpuscular HGB Conc32.7 g/kQMuvkvh34.5-35.6The [facility] Physician [facility] HospitalComment on above:Performed By: #### CBC, BMP ####[address] [address] USANRBC%0.0 /100{WBC} Normal0-0.5The [facility] Physician [facility] HospitalComment on above:Performed By: #### CBC, BMP ####[place] [id number] [facility] White Blood Count18.4 [CFU]/mLHigh4.1-10.5The [facility] Physician [facility] HospitalComment on above:Performed By: #### CBC, BMP ####[address] [address] USACreatinine [Mass/volume] in Serum or Plasma Ordered By: Silvano Reed on 86-65-9543Barhkoiaic [Mass/Vol]0.92 mg/dL Normal0.70-1.30M[facility] HospitalComment on above:Performed By: #### CBC, BMP ####[place] [id number] USAEosinophils [#/volume] in Blood by Automated countOrdered By: Silvano Reed on 86-29-0555Hmxxqevcoas (Bld) [#/Vol]0.0 10*3/uLNormal 0.0-0.45M[facility] HospitalComment on above:Performed By: #### CBC, BMP ####[address] [address] USAEosinophils/100 leukocytes in Blood by Automated countOrdered By: Silvano Reed on 91-89-8440Txdgigfxpsv/100 WBC (Bld)0.0 %Normal.[facility]own HospitalComment on above:Performed By: #### CBC, BMP ####[address] [address] USAErythrocyte distribution width [Ratio] by Automated countOrdered By: Silvano Reed on 32-97-3018Muovicsbobz distribution width (RBC) [Ratio]16.5 %High12.0-14.8 [facility] HospitalComment on above:Performed By: #### CBC, BMP ####[address] [address] [place] Erythrocytes [#/volume] in Blood by Automated countOrdered By: Silvano Reed on 99-44-0623BSF (Bld) [#/Vol]3.34 10*6/uLLow3.90-5.60[facility] HospitalComment on above:Performed By: #### CBC, BMP ####[address] [address] USAGlucose [Mass/volume] in Serum or PlasmaOrdered By: Silvano Reed on 11-12-2024 Glucose [Mass/Vol]144 mg/xCKgxg73-938QlvfowmktMiddletown HospitalComment on above:ADA recommended reference rangeRandom Glucose Reference [...] recommended reference rangePerformed By: #### CBC, BMP ####[address] [address] USAHematocrit [Volume Fraction] of Blood by Automated countOrdered By: Silvano Reed on 56-47-6802Ukmstbbihd (Bld) [Volume fraction]27.0 %Low38.8-50.0M[facility]own HospitalComment on above:Performed By: #### CBC, BMP ####[address] [address] USAHemoglobin [Mass/volume] in BloodOrdered By: Silvano Reed on 85-04-1704Lqotrdovyv (Bld) [Mass/Vol]8.8 g/dLLow13.0-17.0M[facility] HospitalComment on above:Performed By: #### CBC, BMP ####[address] [address] USALeukocytes [#/volume] corrected for nucleated erythrocytes in Blood by Automated counOrdered By: Silvano Reed on 23-94-9447UAV corrected for nucl RBC Auto (Bld) [#/Vol]18.4 10*3/uLHigh4.1-10.5 [facility] HospitalLeukocytes [#/volume] in Blood by Automated countOrdered By: Silvano Reed on 01-89-2622ESI (Bld) [#/Vol]18.4 10*3/uL High4.1-10.5FDetwiler Memorial HospitalComment on above:Performed By: #### CBC, BMP ####[address] [address] USALymphocytes [#/volume] in Blood by Automated countOrdered By: Silvano Reed on 69-78-1277Wjioyxkwbdl (Bld) [#/Vol]0.7 10*3/uLLow1.00-4.8[facility] HospitalComment on above:Performed By: #### CBC, BMP ####[address] [address] [place] Lymphocytes/100 leukocytes in Blood by Automated countOrdered By: Silvano Reed on 23-21-1934Rxyihqdacyp/100 WBC (Bld)4.1 %Normal.[facility] HospitalComment on above:Performed By: #### CBC, BMP ####[address] [address] USAMCH [Entitic mass] by Automated countOrdered By: Silvano Reed on 44-23-5379JFL (RBC) [Entitic mass]26.5 pgLow27.5-35.2FDetwiler Memorial HospitalComment on above: Performed By: #### CBC, BMP ####[address] [address] [facility] Auto (RBC) [Mass/Vol]Ordered By: Silvano Reed on 63-50-6207OZCA (RBC) [Mass/Vol]32.7 g/dL32.5-35.6FDetwiler Memorial HospitalMCV [Entitic volume] by Automated countOrdered By: Silvano Reed on 62-10-8525IIA (RBC) [Entitic vol]80.9 fLLow83.5-101M[facility] HospitalComment on above:Performed By: #### CBC, BMP ####[place] [id number] [place] Monocytes [#/volume] in Blood by Automated countOrdered By: Silvano Reed on 62-26-6837Tmgylsfef (Bld) [#/Vol]0.5 10*3/uLNormal0.0-0.8[facility] HospitalComment on above:Performed By: #### CBC, BMP ####[address] [address] USAMonocytes/100 leukocytes in Blood by Automated countOrdered By: Silvano Reed on 59-35-5535Dliltszxq/100 WBC (Bld)2.8 %Normal.[facility] Comment on above:Performed By: #### CBC, BMP ####[address] [address] USANeutrophils [#/volume] in Blood by Automated countOrdered By: Silvano Reed on 05-57-6411Txhimdrlcna (Bld) [#/Vol]17.1 10*3/uLHigh1.8-7.7FDetwiler Memorial HospitalComment on above: Performed By: #### CBC, BMP ####[facility] [place] [address] USANeutrophils/100 leukocytes in Blood by Automated countOrdered By: Silvano Reed on 01-05-8549Zlaubeiaoio/100 WBC (Bld)93.0 %Normal.[facility] HospitalComment on above:Performed By: #### CBC, BMP ####[address] [address] USANo Panel InformationOrdered By: Silvano Reed on 49-78-0015Wnyaflhed GFR (CKD-EPI)> 60.0 mL/MinMiddletown HospitalPharmacy Creatinine Clearance (Chem65.31M[facility]own HospitalNucleated erythrocytes [Presence] in Blood by Automated countOrdered By: Silvano Reed on 36-85-3248Fbwndrkiw RBC Auto Ql (Bld)0.0 /100{WBC}0-0.5FDetwiler Memorial HospitalPlatelet mean volume [Entitic volume] in Blood by Automated count Ordered By: Silvano Reed on 41-09-2113Cwabocgj mean volume (Bld) [Entitic vol]7.9 fLNormal6.6-10.1FDetwiler Memorial HospitalComment on above:Performed By: #### CBC, BMP ####[place] [place] [address] USAPlatelets [#/volume] in Blood by Automated count Ordered By: Silvano Reed on 75-40-7657Gqydxnztn (Bld) [#/Vol]273 10*3/uL Gmirjk546-748PeobvuvefMiddletown HospitalComment on above:Performed By: #### CBC, BMP ####[address] [address] USAPotassium [Moles/volume] in Serum or PlasmaOrdered By: Silvano Reed on 54-65-0941Rcujwoeev [Moles/Vol]4.1 mmol/LNormal3.5-5.1FDetwiler Memorial HospitalComment on above:Performed By: #### CBC, BMP ####[place] [address] [place] [address] USASerum or plasma anion gap determinationOrdered By: Silvano Reed on 11-12-2024 Anion gap [Moles/Vol]11.0 mmol/LNormal6.0-15.0[facility] Comment on above:Performed By: #### CBC, BMP ####[place] [id number] USASodium [Moles/volume] in Serum or PlasmaOrdered By: Silvano Reed on 55-48-8319Dwxceq [Moles/Vol]135 mmol/L Bng443-816ShtimmsorMiddletown HospitalComment on above:Performed By: #### CBC, BMP ####[place] [address] USAUrea nitrogen [Mass/volume] in Serum or PlasmaOrdered By: Silvano Reed on 10-31-9475Bbup nitrogen [Mass/Vol]22 mg/dLNormal7-25[facility] HospitalComment on above:Performed By: #### CBC, BMP ####[place] [id number] [place] Appearance of UrineOrdered By: Silvano Reed on 73-34-7107Ujyvsekazu (U) ClearNormalClearMiddletown HospitalComment on above:Order Comment: Name Collection Type:: Straight CatheterPerformed By: #### ADDONUAPLUS #### [facility] [address] [place] [address] USABacteria [Presence] in Urine by AutomatedOrdered By: Silvano Reed on 20-97-5887Wwhagnex Auto Ql (U)Rare [HPF]None Seen [facility] HospitalBilirubin Test strip Ql (U)Ordered By: Silvano Reed on 09-31-0325Bqvkcxwaw Ql (U)NegativeNegativeMiddletown HospitalColor of Urine by AutoOrdered By: Silvano Reed on [id number] (U)Light-yellowNormalYellowMiddletown Hospital Comment on above:Order Comment: Name Collection Type:: Straight Catheter Performed By: #### ADDONUAPLUS #### [facility] [address] [place] [address] USADipstick and Microscopicon [id number],UrineRare NormalNone SeenThe [facility] Physician GroupComment on above:Order Comment: Name Collection Type:: Straight CatheterPerformed By: #### ADDONUAPLUS #### [place] [address] USABilirubin,UrineNegativeNormalNegativeThe [facility] [facility] Physician GroupComment on above:Order Comment: Name Collection Type:: Straight CatheterPerformed By: #### ADDONUAPLUS #### [place] [address] USAGlucose Ql (U)50 mg/dLNormalNormalThe [facility] Physician GroupComment on above:Order Comment: Name Collection Type:: Straight Catheter Performed By: #### ADDONUAPLUS #### [place] [address] USAHyaline Casts,Pvwnk9-61Mefmsw0-7Gqm [facility] Physician GroupComment on above:Order Comment: Name Collection Type:: Straight Catheter Performed By: #### ADDONUAPLUS #### [place] [address] USAMucus,UrineRareNormalThe [facility] Physician GroupComment on above:Order Comment: Name Collection Type:: Straight CatheterResult Comment: PERFORMED BY: [place] [address] PATHOLOGIST [employer] SUPERVISOR REGGIE CASTANEDA M.D.Performed By: #### ADDONUAPLUS #### [place] [address] USANitrite,UrinePositiveNormalNegativeThe [facility] Physician GroupComment on above:Order Comment: Name Collection Type:: Straight Catheter Performed By: #### ADDONUAPLUS #### [place] [address] USAOccult Blood,UrineTraceNormalNegativeThe [facility] Physician GroupComment on above:Order Comment: Name Collection Type:: Straight CatheterResult Comment: PERFORMED BY: [place] [address] PATHOLOGIST [employer] SUPERVISOR REGGIE CASTANEDA M.D.Performed By: #### ADDONUAPLUS #### [place] [address] USAProtein,UrineNegativeNormalNegativeThe [facility] Physician GroupComment on above:Order Comment: Name Collection Type:: Straight Catheter Performed By: #### ADDONUAPLUS #### [place] [address] USARBC,Ljjob3-6Bkrrkg9-7Gyr [facility] Physician GroupComment on above:Order Comment: Name Collection Type:: Straight CatheterPerformed By: #### ADDONUAPLUS #### [place] [address] USASpecificy [place],Urine1.253Garmzv8.001-1.030The [facility] Physician GroupComment on above:Order Comment: Name Collection Type:: Straight CatheterPerformed By: #### ADDONUAPLUS #### [place] [address] USAUrobilinogen,UrineNormalNormalNormalThe [facility] Physician GroupComment on above:Order Comment: Name Collection Type:: Straight CatheterPerformed By: #### ADDONUAPLUS #### [place] [address] USAWBC,Gygzo17-43Wjthel7-5Jfd [facility] Comment on above:Order Comment: Name Collection Type:: Straight Catheter Performed By: #### ADDONUAPLUS #### [place] [address] USAEpithelial cells.squamous [#/area] in Urine sediment by Automated countOrdered By: Silvano Reed on 52-52-6881Qsktsrjstm cells.squamous Auto (Urine sed) [#/Area]N/AFDetwiler Memorial Hospital Erythrocytes [#/area] in Urine sediment by Automated countOrdered By: Silvano Reed on 02-01-6457QQT Auto (Urine sed) [#/Area]1-2 [HPF]0-4FDetwiler Memorial HospitalGlucose [Mass/volume] in Urine by Test stripOrdered By: Silvano Reed on 69-21-5861Wfzlqnd Test strip (U) [Mass/Vol]50 mg/dLHigh NormalMiddletown HospitalHemoglobin Test strip Ql (U)Ordered By: Silvano Reed on 21-67-1849Tkquxwixod Ql (U)TraceHighNegMagruder HospitalHyaline casts [#/area] in Urine sediment by Automated countOrdered By: Silvano Reed on 32-63-6798Gsydixv casts Auto (Urine sed) [#/Area]9-19 [LPF]High0-8M[facility] HospitalKetones [Presence] in Urine by Test stripOrdered By: Silvano Reed on 11-11-2024 Ketones Ql (U)NegativeNormalNegMagruder HospitalComment on above:Order Comment: Name Collection Type:: Straight CatheterPerformed By: #### ADDONUAPLUS #### [facility] [address] [place] [id number] USALeukocyte esterase [Presence] in Urine by Test strip Ordered By: Silvano Reed on 86-82-5115Uiulzxzmz esterase Test strip Ql (U)2+NormalNegMagruder HospitalComment on above:Order Comment: Name Collection Type:: Straight CatheterPerformed By: #### ADDONUAPLUS #### [facility] [address] [place] [address] USALeukocytes [#/area] in Urine sediment by Automated count Ordered By: Silvano Reed on 89-29-5330MET Auto (Urine sed) [#/Area]20-49 [HPF]High0-4FDetwiler Memorial HospitalMucus [Presence] in Urine by AutomatedOrdered By: Silvano Reed on 51-75-0685Ubvya Auto Ql (U)Rare [LPF][facility] HospitalNitrite Test strip Ql (U)Ordered By: Silvano Reed on 63-51-3612Ulcxchr Ql (U)PositiveHighNegativeMiddletown HospitalProtein Test strip (U) [Mass/Vol]Ordered By: Silvano Reed on 35-82-1350Efarxkn (U) [Mass/Vol]NegativeNegativeMercy Health St. Rita's Medical Centerpecific gravity Test strip (U) [Rel density]Ordered By: Silvano Reed on 36-25-3816Kejqslfh gravity (U) [Rel density]1.012 1.001-1.030Middletown HospitalUrobilinogen Test strip (U) [Mass/Vol]Ordered By: Silvano Reed on 25-30-4002Wjskkljrjawj (U) [Mass/Vol]Normal mg/dLNormalMiddletown HospitalX-ray reportOrdered By: Prudencio Iyer on 54-99-3407Ywluw reportLICKING MEM[place] [address] XRay Report Signed Patient: Mary Mcadams MR#: [id number] : 1955 Acct:[id number] Age/Sex: 69 / M ADM Date: 5 Loc: Room: [address] [place] [address] Type: ADM IN Attending Dr: Silvano Reed [...] Iyer M.D. 11/11/2024 8:12 AM Dictation Location: [place] [address] Transcribed By: JEANIE 11/11/24811 Dictated By: Prudencio Iyer MD 11/11/24809 Signed By: 11/11/24811 [facility] Work Phone: XR chest 1V portableon 45-24-6246ZR chest 1V portable [facility] [place] [address] XRay Report Signed Patient: Mary Mcadams MR#: [id number] : 1955 Acct:[id number] Age/Sex: 69 / M ADM Date: 11/11/24 Loc: Room: [address] [place] [address] Type: DIS IN Attending Dr: Hoang Conner [...] Iyer M.D. 11/11/2024 8:12 AM Dictation Location: [facility]- Transcribed By: JEANIE 11/11/24811 Dictated By: Prudencio Iyer MD 11/11/24809 Signed By: 11/11/24811[facility] Physician GrouppH of Urine by Test stripOrdered By: Silvano Reed on 45-87-4628sX (U)5.5 [pH]Normal5.0-9.0M[facility] HospitalComment on above:Order Comment: Name Collection Type:: Straight CatheterPerformed By: #### ADDONUAPLUS #### [facility] [address] [place] [address] USAAlanine aminotransferase [Enzymatic activity/volume] in Serum or PlasmaOrdered By: Hasmukh Vides on 53-94-5203YTS [Catalytic activity/Vol]10 U/LNormal7-52M[facility] HospitalComment on above: Performed By: #### HS TROP, CBC, BNP, MG, CK, CMP ####[facility] [address] [place] [address] USAAlbumin [Mass/volume] in Serum or Plasma by Bromocresol green (BCG) dye binding methoOrdered By: Hasmukh Vides on 97-60-9007Prxmxls BCG dye [Mass/Vol]3.9 g/dL3.5-5.7FDetwiler Memorial HospitalAlkaline phosphatase [Enzymatic activity/volume] in Serum or PlasmaOrdered By: Hasmukh Vides on 19-94-1796WSE [Catalytic activity/Vol]149 U/WMinb00-325 [facility] HospitalComment on above:Performed By: #### HS TROP, CBC, BNP, MG, CK, CMP ####[facility] [address] [place] [address] USAAppearance of UrineOrdered By: Hasmukh Vides on 11-10-2024 Appearance (U)ClearNormalClearMiddletown HospitalComment on above: Order Comment: Name Collection Type:: Clean-Voided MidstreamPerformed By: #### BMP #### [facility] [address] [place] [address] USAAspartate aminotransferase [Enzymatic activity/volume] in Serum or PlasmaOrdered By: Hasmukh Vides on 86-56-5063ECH [Catalytic activity/Vol]19 U/OVtypom07-56JjwsabvibMiddletown HospitalComment on above: Performed By: #### HS TROP, CBC, BNP, MG, CK, CMP ####[facility] [address] [place] [address] USABNP ser/plasOrdered By: Hasmukh Vides on 15-62-5817Jesuhbdldns peptide B (Bld) [Mass/Vol]187.0 pg/mLHigh5-100M[facility] HospitalComment on above:Result Comment: PERFORMED BY: [address] [place] [address] PATHOLOGIST [employer] SUPERVISOR REGGIE CASTANEDA M.D.Performed By: #### HS TROP, CBC, BNP, MG, CK, CMP ####[place] [id number] [place] Bacteria [Presence] in Urine by AutomatedOrdered By: Hasmukh Vides on 11-10-2024 Bacteria Auto Ql (U)2+ [HPF][facility] Basophils [#/volume] in Blood by Automated countOrdered By: Hasmukh Vides on 77-66-6043Jpplvuedc (Bld) [#/Vol]0.0 10*3/uLNormal0.0-0.2FDetwiler Memorial HospitalComment on above:Result Comment: PERFORMED BY: [facility] [address] [facility] [place] [address] PATHOLOGIST [employer] SUPERVISOR REGGIE CASTANEDA M.D.Performed By: #### HS TROP, CBC, BNP, MG, CK, CMP ####[place] [id number] [place] Basophils/100 leukocytes in Blood by Automated countOrdered By: Hasmukh Vides on 01-76-1859Lhenjlxpc/100 WBC (Bld)0.5 %Normal.[facility] Comment on above:Performed By: #### HS TROP, CBC, BNP, MG, CK, CMP ####[place] [id number] USABilirubin Test strip Ql (U)Ordered By: Hasmukh Vides on 42-23-0290Azrlvjgik Ql (U)NegativeNegative [facility]own HospitalBilirubin.total [Mass/volume] in Serum or PlasmaOrdered By: Hasmukh Vides on 97-04-8651Sbpxddaww [Mass/Vol]0.6 mg/dLNormal 0.3-1.0M[facility]own HospitalComment on above:Performed By: #### HS TROP, CBC, BNP, MG, CK, CMP ####[place] [address] [place] [address] USACalcium [Mass/volume] in Serum or PlasmaOrdered By: Hasmukh Vides on 55-34-6107Jxrgncl [Mass/Vol]9.8 mg/dLNormal8.6-10.3FDetwiler Memorial HospitalComment on above:Performed By: #### HS TROP, CBC, BNP, MG, CK, CMP ####[place] [address] USACarbon dioxide, total [Moles/volume] in Serum or PlasmaOrdered By: Hasmukh Vides on 45-84-5320IN6 [Moles/Vol]28.0 mmol/IXdeosr95.0-31.0M[facility]own HospitalComment on above:Performed By: #### HS TROP, CBC, BNP, MG, CK, CMP ####[place] [address] USAChloride [Moles/volume] in Serum or PlasmaOrdered By: Hasmukh Vides on 80-07-5693Knfpaybo [Moles/Vol]98 mmol/MCckwjy80-881TemcjyqaeMiddletown HospitalComment on above:Performed By: #### HS TROP, CBC, BNP, MG, CK, CMP ####[place] [phone] USAColor of Urine by AutoOrdered By: Hasmukh Vides on 09-05-5704Baeda (U)Light-yellow NormalYellowMiddletown HospitalComment on above:Order Comment: Name Collection Type:: Clean-Voided MidstreamPerformed By: #### BMP #### [facility] [address] [place] [address] USAComplete Blood Count Auto Diffon 94-81-3027Vych Corpuscular HGB Conc33.4 g/hBXyacnf42.5-35.6The [facility] Physician GroupComment on above:Performed By: #### HS TROP, CBC, BNP, MG, CK, CMP ####[place] [address] USAMonocytes/100 WBC (Bld)18.48 %Normal0.00-20.00The [facility] Physician GroupComment on above: Performed By: #### HS TROP, CBC, BNP, MG, CK, CMP ####[place] [id number] USANRBC%0.1 /100{WBC}Normal0-0.5The [facility] Physician GroupComment on above:Performed By: #### HS TROP, CBC, BNP, MG, CK, CMP ####[place] [address] USAWhite Blood Count6.4 [CFU]/mLNormal4.1-10.5The [facility] Physician GroupComment on above:Performed By: #### HS TROP, CBC, BNP, MG, CK, CMP ####[address] Comprehensive Metabolic Panelon 69-17-7663Dnusmjq [Mass/Vol]3.9 g/dLNormal 3.5-5.7The [facility] Physician GroupComment on above:Performed By: #### HS TROP, CBC, BNP, MG, CK, CMP ####[place] [address] USACreatinine Clr Calc Vyilqevh71.17NormalThe [facility] Physician GroupComment on above:Performed By: #### HS TROP, CBC, BNP, MG, CK, CMP ####[place] [id number] [place] GFR/1.73 sq M.predicted MDRD (S/P/Bld) [Vol rate/Area]mL/min/{1.73_m2}NormalThe [facility] Physician GroupComment on above:Performed By: #### HS TROP, CBC, BNP, MG, CK, CMP ####[place] [address] USACreatine kinase [Enzymatic activity/volume] in Serum or PlasmaOrdered By: Hasmukh Vides on 64-92-9972PX [Catalytic activity/Vol]27 U/TFzk81-866 [facility] HospitalComment on above:Performed By: #### HS TROP, CBC, BNP, MG, CK, CMP ####[facility] [address] [place] [id number] USACreatinine [Mass/volume] in Serum or PlasmaOrdered By: Hasmukh Vides on 79-13-4388Elumkyozhe [Mass/Vol]0.80 mg/dLNormal0.70-1.30 [facility] HospitalComment on above:Performed By: #### HS TROP, CBC, BNP, MG, CK, CMP ####[facility] [address] [place] [id number] USADipstick and Microscopicon 77-68-4206Elxngzrj,Urine2+ [HPF]NormalNone SeenThe [facility] Physician GroupComment on above:Order Comment: Name Collection Type:: Clean-Voided MidstreamPerformed By: #### BMP #### [place] [address] USABilirubin,UrineNegativeNormalNegativeThe [facility] Physician GroupComment on above:Order Comment: Name Collection Type:: Clean- Voided MidstreamPerformed By: #### BMP #### [place] [address] USAGlucose Ql (U)NormalNormalNormalThe [facility] Physician GroupComment on above:Order Comment: Name Collection Type:: Clean-Voided MidstreamPerformed By: #### BMP #### [facility] [address] [place] [address] USAHyaline Casts,Fvyyt3-86Opvatu8-2Lrq [facility] Physician GroupComment on above:Order Comment: Name Collection Type:: Clean-Voided MidstreamPerformed By: #### BMP #### [place] [address] USAMucus,UrineRareNormalThe [facility] Physician GroupComment on above:Order Comment: Name Collection Type:: Clean-Voided MidstreamResult Comment: PERFORMED BY: [place] [id number] PATHOLOGIST [employer] SUPERVISOR REGGIE CASTANEDA M.D.Performed By: #### BMP #### [place] [address] USANitrite,UrinePositiveNormalNegativeThe [facility] Physician GroupComment on above:Order Comment: Name Collection Type:: Clean-Voided MidstreamPerformed By: #### BMP #### [place] [address] USAOccult Blood,UrineNegativeNormalNegativeThe [facility] Physician GroupComment on above:Order Comment: Name Collection Type:: Clean- Voided MidstreamResult Comment: PERFORMED BY: [place] [address] PATHOLOGIST [employer] SUPERVISOR REGGIE CASTANEDA M.D.Performed By: #### BMP #### [place] [address] USAProtein,UrineNegativeNormalNegativeThe [facility] Physician GroupComment on above:Order Comment: Name Collection Type:: Clean-Voided MidstreamPerformed By: #### BMP #### [place] [address] USARBC,Rxirm4-1Sujdgu7-5Dah [facility] Physician GroupComment on above:Order Comment: Name Collection Type:: Clean-Voided MidstreamPerformed By: #### BMP #### [place] [address] USASpecificy [place],Urine1.218Sgqejg5.001-1.030The [facility] Physician GroupComment on above:Order Comment: Name Collection Type:: Clean- Voided MidstreamPerformed By: #### BMP #### [place] [address] USASquamous Epithelial Cell,Ewkfk7-0Ymjkxe6-8Epx [facility] Physician GroupComment on above:Order Comment: Name Collection Type:: Clean- Voided MidstreamPerformed By: #### BMP #### [place] [address] USAUrobilinogen,UrineNormalNormalNormalThe [facility] Physician GroupComment on above:Order Comment: Name Collection Type:: Clean- Voided MidstreamPerformed By: #### BMP #### [facility] [address] [place], [place] [address] USAWBC CLUMP, UrineManyNormalNone SeenThe [facility] Physician GroupComment on above:Order Comment: Name Collection Type:: Clean-Voided MidstreamPerformed By: #### BMP #### [facility] [address] [place] [address] USAWBC,UrineInnumerableNormal0-4The [facility]ician Group Comment on above:Order Comment: Name Collection Type:: Clean-Voided Midstream Performed By: #### BMP #### [place] [id number] USAECG 12 lead ECGon 41-50-1762WVI 12 lead [facility]GLICK[facility] [place] [address] [place] [address] Electrocardiograph Report Signed Patient: Mary Mcadams MR#: [id number] : 1955 Acct:[id number] Age/Sex: 69 / M ADM Date: 11/11/24 Loc: Room: [address] [place] [address] Type: ADM IN Attending Dr: Hoang Conner [...] By: MUS Signed By Shannon Gonzalez MD, [facility] 11/12/24 1700[facility] Physician GroupEosinophils [#/volume] in Blood by Automated countOrdered By: Hasmukh Vides on 17-82-4030Todskzxuerp (Bld) [#/Vol]0.3 10*3/uLNormal0.0-0.45[facility] HospitalComment on above:Performed By: #### HS TROP, CBC, BNP, MG, CK, CMP ####[place] [address] [place] [id number] USAEosinophils/100 leukocytes in Blood by Automated countOrdered By: Hasmukh Vides on 29-69-4657Tdkfnihidls/100 WBC (Bld)5.0 %Normal.[facility] HospitalComment on above:Performed By: #### HS TROP, CBC, BNP, MG, CK, CMP ####[place] [address] [place] [address] USAEpithelial cells.squamous [#/area] in Urine sediment by Automated countOrdered By: Hasmukh Vides on 26-21-7313Atsppzodfg cells.squamous Auto (Urine sed) [#/Area]1-2 [HPF]0-2FDetwiler Memorial HospitalErythrocyte distribution width [Ratio] by Automated countOrdered By: Hasmukh Vides on 92-55-3507Ukwzwfafmle distribution width (RBC) [Ratio]16.5 %High 12.0-14.8[facility] HospitalComment on above:Performed By: #### HS TROP, CBC, BNP, MG, CK, CMP ####[place] [phone] USAErythrocytes [#/area] in Urine sediment by Automated countOrdered By: Hasmukh Vides on 48-63-7823LEA Auto (Urine sed) [#/Area]3-4 [HPF]0-4FDetwiler Memorial HospitalErythrocytes [#/volume] in Blood by Automated countOrdered By: Hasmukh Vides on 55-68-5899ZYD (Bld) [#/Vol]3.90 10*6/uLNormal3.90-5.60[facility] HospitalComment on above: Performed By: #### HS TROP, CBC, BNP, MG, CK, CMP ####[place] [address] [place] [address] USAGlucose [Mass/volume] in Serum or PlasmaOrdered By: Hasmukh Vides on 82-18-7776Ijiuast [Mass/Vol]100 mg/dLNormal 70-100[facility] HospitalComment on above:ADA recommended reference rangeRandom Glucose Reference [...] HS TROP, CBC, BNP, MG, CK, CMP ####[place] [address] [place] [address] [place] Glucose [Mass/volume] in Urine by Test stripOrdered By: Hasmukh Vides on 38-34-3379Ncvszgb Test strip (U) [Mass/Vol]Normal mg/dLNormSelect Medical Cleveland Clinic Rehabilitation Hospital, AvonHematocrit [Volume Fraction] of Blood by Automated countOrdered By: Hasmukh Vides on 99-66-0528Fdqorbxdyp (Bld) [Volume fraction]31.6 %Low 38.8-50.0[facility] HospitalComment on above:Performed By: #### HS TROP, CBC, BNP, MG, CK, CMP ####[facility] [place] [address] USAHemoglobin Test strip Ql (U)Ordered By: Hasmukh Vides on 29-96-4365Jakejjcxvk Ql (U)NegativeNegativeMiddletown Hospital Hemoglobin [Mass/volume] in BloodOrdered By: Hasmukh Vides on 11-10-2024 Hemoglobin (Bld) [Mass/Vol]10.5 g/dLLow13.0-17.0[facility] HospitalComment on above:Performed By: #### HS TROP, CBC, BNP, MG, CK, CMP ####[facility] [address] [place] [address] USAHyaline casts [#/area] in Urine sediment by Automated countOrdered By: Hasmukh Vides on 24-50-9090Emimnnw casts Auto (Urine sed) [#/Area]9-19 [LPF]High0-8[facility] HospitalKetones [Presence] in Urine by Test stripOrdered By: Hasmukh Vides on 64-28-2195Dahnkyd Ql (U)NegativeNormalNegativeMiddletown HospitalComment on above:Order Comment: Name Collection Type:: Clean- Voided MidstreamPerformed By: #### BMP #### [facility] [address] [place] [id number] USALeukocyte clumps [Presence] in Urine by AutomatedOrdered By: Hasmukh Vides on 56-84-8977Lgovrobfn clumps Auto Ql (U)Many [LPF]HighNone SeenMiddletown HospitalLeukocyte esterase [Presence] in Urine by Test stripOrdered By: Hasmukh Vides on 53-06-6423Hyetmpjxm esterase Test strip Ql (U)4+NormalNegMagruder HospitalComment on above:Order Comment: Name Collection Type:: Clean-Voided MidstreamPerformed By: #### BMP #### [facility] [address] [place] [id number] USALeukocytes [#/area] in Urine sediment by Automated count Ordered By: Hasmukh Vides on 81-35-6926EOR Auto (Urine sed) [#/Area]Innumerable [HPF]High0-4FDetwiler Memorial HospitalLeukocytes [#/volume] corrected for nucleated erythrocytes in Blood by Automated counOrdered By: Hasmukh Vides on 54-99-7811IVM corrected for nucl RBC Auto (Bld) [#/Vol]6.4 10*3/uL4.1-10.5 [facility] HospitalLeukocytes [#/volume] in Blood by Automated countOrdered By: Hasmukh Vides on 14-24-1823OVR (Bld) [#/Vol]6.4 10*3/uLNormal 4.1-10.5Fire[facility] Regional Medical CenterComment on above:Performed By: #### HS TROP, CBC, BNP, MG, CK, CMP ####[address] [address] USALymphocytes [#/volume] in Blood by Automated countOrdered By: Hasmukh Vides on 11-35-8316Pgksunjcmgr (Bld) [#/Vol]1.2 10*3/uLNormal 1.00-4.8[facility] HospitalComment on above:Performed By: #### HS TROP, CBC, BNP, MG, CK, CMP ####[address] [address] USALymphocytes/100 leukocytes in Blood by Automated count Ordered By: Hasmukh Vides on 25-21-6681Rjmxkajjivk/100 WBC (Bld)18.7 %Normal. [facility] HospitalComment on above:Performed By: #### HS TROP, CBC, BNP, MG, CK, CMP ####[address] [address] [facility] [Entitic mass] by Automated countOrdered By: Hasmukh Vides on 94-67-9568GYZ (RBC) [Entitic mass]27.0 pgLow27.5-35.2FDetwiler Memorial HospitalComment on above:Performed By: #### HS TROP, CBC, BNP, MG, CK, CMP ####[address] [address] [facility] Auto (RBC) [Mass/Vol]Ordered By: Hasmukh Vides on 25-37-0113HHJF (RBC) [Mass/Vol] 33.4 g/dL32.5-35.6FRegional Medical CenterV [Entitic volume] by Automated countOrdered By: Hasmukh Vides on 25-33-7789KOG (RBC) [Entitic vol]80.8 fLLow83.5-101[facility] HospitalComment on above:Performed By: #### HS TROP, CBC, BNP, MG, CK, CMP ####[address] [address] USAMagnesium [Mass/volume] in Serum or PlasmaOrdered By: Hasmukh Vides on 91-50-0703Unjgnhspy [Mass/Vol]1.6 mg/dLLow1.9-2.7FDetwiler Memorial HospitalComment on above:Result Comment: PERFORMED BY: [facility] [address] [place] [id number] PATHOLOGIST [employer] SUPERVISOR REGGIE CASTANEDA M.D.Performed By: #### HS TROP, CBC, BNP, MG, CK, CMP ####[place] [address] [place] [address] [place] Monocyte distribution width [Entitic volume] in Blood by AutomatedOrdered By: Hasmukh Vides on 35-71-9883Zermlgok distribution width Auto (Bld) [Entitic vol] 18.48 %0.00-20.00[facility] HospitalMonocytes [#/volume] in Blood by Automated countOrdered By: Hasmukh Vides on 43-34-1527Pztybhfiv (Bld) [#/Vol] 0.6 10*3/uLNormal0.0-0.8[facility] HospitalComment on above: Performed By: #### HS TROP, CBC, BNP, MG, CK, CMP ####[place] [address] [place] [address] USAMonocytes/100 leukocytes in Blood by Automated countOrdered By: Hasmukh Vides on 38-21-3243Sliwwemkw/100 WBC (Bld)9.3 %Normal.[facility] HospitalComment on above:Performed By: #### HS TROP, CBC, BNP, MG, CK, CMP ####[address] [place] [address] USAMucus [Presence] in Urine by AutomatedOrdered By: Hasmukh Vides on 27-99-5638Mstwy Auto Ql (U)Rare [LPF][facility] Neutrophils [#/volume] in Blood by Automated countOrdered By: Hasmukh Vides on 91-72-5246Jvbgaztjgdi (Bld) [#/Vol]4.3 10*3/uLNormal1.8-7.7FDetwiler Memorial HospitalComment on above:Performed By: #### HS TROP, CBC, BNP, MG, CK, CMP ####[place] [address] [place] [address] [place] Neutrophils/100 leukocytes in Blood by Automated countOrdered By: Hasmukh Vides on 81-05-8018Bbuxexgbaes/100 WBC (Bld)66.5 %Normal.[facility] HospitalComment on above:Performed By: #### HS TROP, CBC, BNP, MG, CK, CMP ####[place] [address] [place] [id number] USANitrite Test strip Ql (U)Ordered By: Hasmukh Vides on 11-17-3857Yqvgpnc Ql (U)Positive HighNegativeMiddletown HospitalNo Panel InformationOrdered By: Hasmukh Vides on 60-27-8751Trlauhtvg GFR (CKD-EPI)> 60.0 mL/MinMiddletown HospitalPharmacy Creatinine Clearance (Chem77.17M[facility]own HospitalNucleated erythrocytes [Presence] in Blood by Automated count Ordered By: Hasmukh Vides on 74-74-5928Blldihrut RBC Auto Ql (Bld)0.1 /100{WBC} 0-0.5FDetwiler Memorial HospitalPlatelet mean volume [Entitic volume] in Blood by Automated countOrdered By: Hasmukh Vides on 25-34-1867Npnqvggl mean volume (Bld) [Entitic vol]7.9 fLNormal6.6-10.1FDetwiler Memorial Hospital Comment on above:Performed By: #### HS TROP, CBC, BNP, MG, CK, CMP ####[address] [address] USAPlatelets [#/volume] in Blood by Automated countOrdered By: Hasmukh Vides on 39-06-7728Cihygmbed (Bld) [#/Vol]262 10*3/xHLvonms052-619SsthqobpmMiddletown HospitalComment on above:Performed By: #### HS TROP, CBC, BNP, MG, CK, CMP ####[address] [address] USAPotassium [Moles/volume] in Serum or PlasmaOrdered By: Hasmukh Vides on 86-82-0485Wqjeobehb [Moles/Vol]4.1 mmol/LNormal3.5-5.1FDetwiler Memorial HospitalComment on above:Performed By: #### HS TROP, CBC, BNP, MG, CK, CMP ####[place] [address] USAProtein Test strip (U) [Mass/Vol]Ordered By: Hasmukh Vides on 27-20-3726Aoxwxmr (U) [Mass/Vol]NegativeNegativeMiddletown HospitalProtein [Mass/volume] in Serum or PlasmaOrdered By: Hasmukh Vides on 24-09-9168Dwosgan [Mass/Vol]7.5 g/dLNormal6.4-8.9Middletown HospitalComment on above:Performed By: #### HS TROP, CBC, BNP, MG, CK, CMP ####[place] [id number] USASerum globulin measurement by calculation (mass/volume)Ordered By: Hasmukh Vides on 51-74-5494Ygwdqzis (S) [Mass/Vol]3.6 g/dLNormalMiddletown HospitalComment on above:Performed By: #### HS TROP, CBC, BNP, MG, CK, CMP ####[place] [address] USASerum or plasma albumin/globulin mass ratioOrdered By: Hasmukh Vides on 51-93-5346Wsacssc/Globulin [Mass ratio]1.1 {ratio}NormalMiddletown HospitalComment on above:Performed By: #### HS TROP, CBC, BNP, MG, CK, CMP ####[place] [address] USASerum or plasma anion gap determinationOrdered By: Hasmukh Vides on 47-01-3065Etgtu gap [Moles/Vol]11.1 mmol/LNormal6.0-15.0Middletown HospitalComment on above:Performed By: #### HS TROP, CBC, BNP, MG, CK, CMP ####[place] [address] USASodium [Moles/volume] in Serum or PlasmaOrdered By: Hasmukh Vides on 37-14-1779Tiaiql [Moles/Vol]133 mmol/LLow 136-145Middletown HospitalComment on above:Performed By: #### HS TROP, CBC, BNP, MG, CK, CMP ####[facility] [place] [address] USASpecific gravity Test strip (U) [Rel density]Ordered By: Hasmukh Vides on 75-44-7892Evztzvyd gravity (U) [Rel density]1.0101.001-1.030 Middletown HospitalTroponin I High Sensitivityon 11-10-2024 Troponin I High Fdsbcnfxhhr5Zudoic8-33Jhz [facility] Physician GroupComment on above:Result Comment: The Troponin units of report have been changed to meet the Chest Pain Accreditation requirement, element EC5.M1l2. Troponin units are changed from pg/ml to ng/L. Also, the decimal is removed and results are in whole numbers. PERFORMED BY: [facility] [address] [place] [address] PATHOLOGIST PREPARATION PLANT SUPERVISOR REGGIE CASTANEDA M.D.Performed By: #### HS TROP, CBC, BNP, MG, CK, CMP ####[facility] [place] [address] [facility] Troponin I.cardiac [Mass/volume] in Serum or Plasma by Detection limit <= 0.01 ng/mLOrdered By: Hasmukh Vides on 85-11-5650Fnimlmbk I.cardiac DL <= 0.01 ng/mL [Mass/Vol]4 ng/L0-20Middletown HospitalCommackinac straits hospital on above:The Troponin units of report have been changed to meet the Chest Pain Accreditation requirement, element EC5.M1l2. Troponin units are changed from pg/ml to ng/L. Also, the decimal is removed and results are in whole numbers.Urea nitrogen [Mass/volume] in Serum or PlasmaOrdered By: Hasmukh Vides on 04-73-8286Vdcb nitrogen [Mass/Vol]14 mg/dLNormal7-25Middletown HospitalComment on above:Performed By: #### HS TROP, CBC, BNP, MG, CK, CMP ####[facility] [address] [place] [address] USAUrine Cultureon 11-10-2024 Bacteria identified Cx Nom (U)50,000 colonies/ml mixed bacterial skin contaminants including mixed gram negative bacilli - 2 Days PERFORMED BY: [facility] [address] [place] [address] PATHOLOGIST PREPARATION PLANT SUPERVISOR REGGIE CASTANEDA M.D.NormalThe [facility] Physician GroupComment on above: Performed By: #### BMP #### [facility] [address] [place] [address] USAUrine cultureOrdered By: Hasmukh Vides on 11-10-2024 Bacteria identified Cx Nom (U)bacilli - 2 DaysMiddletown Hospital Urobilinogen Test strip (U) [Mass/Vol]Ordered By: Hasmukh Vides on 11-10-2024 Urobilinogen (U) [Mass/Vol]Normal mg/dLNormalMiddletown HospitalpH of Urine by Test stripOrdered By: Hasmukh Vides on 46-60-0873pG (U)5.5 [pH] Normal5.0-9.0Middletown HospitalComment on above:Order Comment: Name Collection Type:: Clean-Voided MidstreamPerformed By: #### BMP #### [facility] [address] [place] [address] USAECG 12 [place] 14-76-6542GID revealed normal sinus rhythm with first-degree AV block, left ventricle hypertrophy with QRS widening, prolonged QT intervalUnProMedica Flower Hospital Work Phone: [facility] Work Phone: Provider Letteron [phone] LetterProvider Letter August 09, 2024 MARY MCADAMS [address] [place] [id number] : 1955 Dear Mary, We have been trying to reach you with no success. Please find enclosed PSA results. Also, at the time of your call, please provide us with your current information. Thank you for your prompt attention to this matter. Sincerely, [facility] [address] [place] [address] WsfhgsWyyuzeOhioHealth O'Bleness HospitalTRANSTHORACIC ECHO (TTE) COMPLETEon 72-44-2570NSPVNWBHWBMGK ECHO (TTE) [facility] [address] [place] [address], [address], [place], [place] [address] TRANSTHORACIC ECHOCARDIOGRAM REPORT Patient Name: MARY MCADAMS Reading Physician: [id number] Shannon Gonzalez MD, [facility] Study Date: 08/09/2024 Ordering Provider: [id number] SHANNON GONZALEZ MRN/PID: [id number] Fellow: Nurse: Date of /Age: 408/18/1955 / 68 years Soldering Machine Feeder: Adamaris Yoder RDCS, RT(R), RDMS, RVT Gender Assigned at Additional Staff: : Height: 182.88 cm Admit Date: Weight: 70.76 kg Admission Status: Outpatient BSA / BMI: 1.92 m2 / 21.16 Department Location: [facility] Heart kg/m2 Martin Blood Pressure: 98 /60 mmHg Study Type: TRANSTHORACIC ECHO (TTE) COMPLETE Diagnosis/ICD: Cardiomyopathy, unspecified-I42.9 Indication: NICM CPT Codes: Echo Complete w Full Doppler-33864 Patient History: Pertinent History: A-Fib, COPD and [...] mmHg AORTA: Asc Ao Diam 4.09 cm [id number] Shannon Gonzalez MD, FACC Electronically signed on 08/09/2024 at 5:39:23 PM * (more content not included)...[facility] US Heart Transthoracicon 47-07-5453Bwfsgg Valve Area by Continuity of Peak Velocity2.98 fi1RdtudydcoyProMedica Flower Hospital Work Phone: [phone] Valve Area by Continuity of VTI3.33 cm2 [facility] Work Phone: [phone] mn xici7vxAaZgqcammsuaWooster Community Hospital Work Phone: [phone] pk dzuy4ogWdXxjkqbyhwzWooster Community Hospital Work Phone: [phone] pk vel1.17 m/[facility] Work Phone: [phone] vol index A/L35.2 ml/n0UmcglxqoynProMedica Flower Hospital Work Phone: [phone] A4C EF49.3[facility] Work Phone: [phone] Biplane EF41 %[facility] Work Phone: [phone] EF50 %[facility] Work Phone: [phone] cmMcCullough-Hyde Memorial Hospital Work Phone: [phone] diam2.49 cmMcCullough-Hyde Memorial Hospital Work Phone: [phone] avg E/e' ratio6.26[facility] Work Phone: [phone] E/A ratio1.18[facility] Work Phone: [phone] free wall pk S'13.32 cm/[facility] Work Phone: [phone] Community Hospital Work Phone: [phone] annular plane systolic excursion2.3 cm [facility] Work Phone: [facility] [address] [place] [address], [address], [place] [address] TRANSTHORACIC ECHOCARDIOGRAM REPORT Patient Name: MARY MCADAMS Reading Physician: [id number] Shannon Gonzalez MD, [facility] Study Date: 08/09/2024 Ordering Provider: [id number] SHANNON GONZALEZ MRN/PID: [id number] Fellow: Nurse: Date of /Age: 408/18/1955 / 68 years Soldering Machine Feeder: Adamaris Yoder RDCS, RT(R), RDMS, RVT Gender Assigned at Additional Staff: : Height: 182.88 cm Admit Date: Weight: 70.76 kg Admission Status: Outpatient BSA / BMI: 1.92 m2 / 21.16 Department Location: [facility] kg/m2 [place] Blood Pressure: 98 /60 mmHg Study Type: TRANSTHORACIC ECHO (TTE) COMPLETE Diagnosis/ICD: Cardiomyopathy, unspecified-I42.9 Indication: NICM CPT Codes: Echo Complete w Full Doppler-74331 Patient History: Pertinent History: A-Fib, COPD and [...] content not included)...Shannon Moran MD - 08/09/[address], [address] [place] [address] TRANSTHORACIC ECHOCARDIOGRAM REPORT Patient Name: MARY Campbell Physician: [id number] Shannon Gonzalez MD, [facility] Study Date: 08/09/2024 Ordering Provider: [id number] SHANNON GONZALEZ MRN/PID: [id number] Fellow: Nurse: Date of /Age: 408/18/1955 / 68 years Soldering Machine Feeder: Adamaris Yoder RDCS, RT(R), RDMS, RVT Gender Assigned at Additional Staff: : Height: 182.88 cm Admit Date: Weight: 70.76 kg Admission Status: Outpatient BSA / BMI: 1.92 m2 / 21.16 Department Location: [facility] kg/[address] Blood Pressure: 98 /60 mmHg Study Type: TRANSTHORACIC ECHO (TTE) COMPLETE Diagnosis/ICD: Cardiomyopathy, unspecified-I42.9 Indication: NICM CPT Codes: Echo Complete w Full Doppler-48010 Patient History: Pertinent History: A-Fib, COPD and [...] PV Mean P.3 mmHg (more content not included)...[facility] Work Phone: [facility]Pro[facility] Work Phone: PSA Totalon 78-69-9024Blcklbwe specific Ag [Mass/Vol] 1.3 ng/mLNormal0.1-3.5Fisher [facility] HospitalComment on above:Result Comment: The concentration of PSA determined by different manufacturers can vary due to differences in assay methods and reagent specificity. Values obtained from different assay methods cannot be used interchangeably. The methodology used for this result was chemiluminescence using [employer]'s Access Hybritech PSA reagent.Performed By: #### [id number] #### [facility] [address] [place], [place] [address]Edlvpbpicq Visit Summaryon 63-08-6281Xsfqskjzrb Visit Summary Ambulatory Visit Summary MARY MCADAMS [...] mg DR Tab) potassium chloride (Potassium Chloride (Anb-Uiti-Lvr 10) 10 mEq oral tablet, extended release) [...] [facility] [address] , [place] [address]- [phone] You Need to Complete the Following PSA [...] or concerns Unchanged potassium chloride (Potassium Chloride (Yvg-Fuat-Nex 10) 10 mEq oral tablet, extended release) [...] are the causes? (more content not included)...NormalFisher [facility] Memorial HospitalCHEMISTRYOrdered By: SYSTEM SYSTEM on 88-70-6652Jiewspwy specific Ag [Mass/Vol]1.3 ng/mLNormal0.1 - 3.5 ng/mLRemisol ChemComment on above: Interpretive Data: The concentration of PSA determined by different manufacturers can vary due to differences in assay methods and reagent specificity. Values obtained from different assay methods cannot be used interchangeably. The methodology used for this result was chemiluminescence using [employer]'s Access Hybritech PSA reagent.Urology Office/Clinic Note on 04-17-5583Pxkrlyr Office/Clinic NoteUrology Office/Clinic Note Chief Complaint 1 year with PSA HPI Staff 68yr old male pt here for 9mo f/u with PSA. CIC 1x per day. Pt now has an indwelling catheter. Catheter was put in during his stay at [facility] for CHF last month and after discharge he was sent to [facility] and they wanted him to keep [...] output ~8-12oz. However had catheter placed at [facility] (was there for CHF ~3.5 wks ago) [...] on Finasteride 5mg qd at prior OV. [place] he was voiding well prior to catheter placement. -Cont Tamsulosin bid and Finasteride qd. Pt to call for refills. Follow-up With When Contact Information EMERSON SALMON, Clinton Hernandez, URL [facility] [address], [place] [phone] Additional Instructions: 6 mos w/ PSA Patient [...] Pantoprazole [address] Tab Potassium Chloride (Qhk-Eran-Okt 10) 10 mEq oral tablet, extended release, [...] Tobacco Use:. Never Smo (more content not included)...[facility]leness HospitalComment on above:Result Comment: Electronically Signed By: Clinton NORMAN MD\.br\Date and Time Signed: 08/05/24 14:40 EDT\.br\Electronically Co-Signed By: Rhonda Temple.br\Date and Time Co-Signed: 08/05/24 14:39 EDTBasic Metabolic Panelon 38-52-3035Qniov gap [Moles/Vol]13.9 mmol/LNormal6.0-15.0[facility] Physician GroupComment on above:Performed By: #### BMP #### [place] [address] USACalcium [Mass/Vol]9.0 mg/dLNormal8.6-10.3The [facility] Physician GroupComment on above:Performed By: #### BMP #### [place] [address] USAChloride [Moles/Vol]99 mmol/VTdvxja68-777Oqg [facility] Physician GroupComment on above:Performed By: #### BMP #### [place] [address] USACO2 [Moles/Vol]24.2 mmol/VObateo59.0-31.0The [facility] Physician GroupComment on above:Performed By: #### BMP #### [place] [address] USACreatinine [Mass/Vol]0.78 mg/dLNormal0.70-1.30The [facility] Physician GroupComment on above:Performed By: #### BMP #### [place] [address] USACreatinine Clr Calc Ltrrjjio73.23NormalThe [facility] Physician GroupComment on above:Result Comment: PERFORMED BY: [place] [address] PATHOLOGIST PREPARATION PLANT SUPERVISOR MALLORIE GARCIA M.D.Performed By: #### BMP #### [place] [address] USAGFR/1.73 sq M.predicted MDRD (S/P/Bld) [Vol rate/Area] mL/min/{1.73_m2}NormalThe [facility] Physician GroupComment on above:Performed By: #### BMP #### [place] [address] USAGlucose [Mass/Vol]86 mg/wAEbhebm22-143Jdo [facility] Physician GroupComment on above:Result Comment: Random Glucose Reference Range is dependent on time and content of last meal. Glucose of more than 200 mg/dL in a nonstressed, ambulatory subject supports the diagnosis of Diabetes Mellitus. ADA recommended reference rangePerformed By: #### BMP #### [facility] [address] [place] [address] USAPotassium [Moles/Vol]4.1 mmol/LNormal3.5-5.1The [facility] Physician GroupComment on above:Performed By: #### BMP #### [facility] [address] [place] [address] USASodium [Moles/Vol]133 mmol/SWlj966-422Slh [facility] Physician GroupComment on above:Performed By: #### BMP #### [facility] [address] [place] [address] USAUrea nitrogen [Mass/Vol]16 mg/dLNormal7-25The [facility] Physician GroupComment on above:Performed By: #### BMP #### [facility] [address] [place] [address] USACalcium [Mass/volume] in Serum or PlasmaOrdered By: Ambrose Hsieh on 87-01-7338Flgvsee [Mass/Vol]Calcium [Mass/volume] in Serum or Plasma 8.6-10.3FDetwiler Memorial HospitalCarbon dioxide, total [Moles/volume] in Serum or PlasmaOrdered By: Ambrose Hsieh on 00-41-9432WL1 [Moles/Vol]Carbon dioxide, total [Moles/volume] in Serum or Jbrrtn51.0-31.0Middletown HospitalChloride [Moles/volume] in Serum or PlasmaOrdered By: Ambrose Hsieh on 95-00-8182Iclslpna [Moles/Vol]Chloride [Moles/volume] in Serum or Plasma 98-107M[facility]own HospitalCreatinine [Mass/volume] in Serum or PlasmaOrdered By: Ambrose Hsieh on 00-66-2065Czxejcdiff [Mass/Vol]Creatinine [Mass/volume] in Serum or Plasma0.70-1.30M[facility]letown HospitalECG 12 lead ECGon 04-40-3732CHM 12 lead [facility] [address] [place] [address] [place] [address] Electrocardiograph Report Signed Patient: Mary Mcadams MR#: [id number] 3267 : 1955 Acct:[id number] Age/Sex: 68 / M ADM Date: 07/03/24 Loc: Room: [address] [place] [address] Type: DIS IN Attending Dr: Altaf Jones MD Ordering Provider: Shannon Gonzalez MD, [facility] Date of Service: 07/09/24 ECG/ECG 12 lead [...] block Abnormal ECG Confirmed by Romelia Garrido ([id number]) on 07/09/2024 10:25:24 PM Referred By: Electronically Signed By: Romelia Garrido Transcribed By: MUS Signed By Romelia Garrido MD [id number] Physician GroupGlucose [Mass/volume] in Serum or PlasmaOrdered By: Ambrose Hsieh on 52-79-9731Puhenwi [Mass/Vol]Glucose [Mass/volume] in Serum or Ctsuzf43-411GqukhtnbiMiddletown HospitalComment on above:ADA recommended reference rangeRandom Glucose Reference Range is dependent on time and content of last meal. Glucose of more than 200 mg/dL in a nonstressed, ambulatory subject supports the diagnosisof Diabetes Mellitus.No Panel InformationOrdered By: Ambrose Hsieh on 73-80-7182Fvuodbmkm GFR (CKD-EPI)> 60.0 mL/MinMiddletown HospitalPharmacy Creatinine Clearance (Chem 81.23M[facility]letown HospitalPotassium [Moles/volume] in Serum or PlasmaOrdered By: Ambrose Hsieh on 40-76-1229Bvgpdqmnl [Moles/Vol]Potassium [Moles/volume] in Serum or Plasma3.5-5.1FSt. Rita's Hospitalerum or plasma anion gap determinationOrdered By: Ambrose Hsieh on 79-70-6924Dutdy gap [Moles/Vol]Serum or plasma anion gap determination6.0-15.0[facility]'s Medical Centerodium [Moles/volume] in Serum or PlasmaOrdered By: Ambrose Hsieh on 69-85-6850Odrdkw [Moles/Vol]Sodium [Moles/volume] in Serum or PlasmaLow 136-145M[facility]letown HospitalUrea nitrogen [Mass/volume] in Serum or PlasmaOrdered By: Ambrose Hsieh on 40-99-4667Tmnj nitrogen [Mass/Vol]Urea nitrogen [Mass/volume] in Serum or Plasma7-25[facility] Basic Metabolic Panelon 53-70-0990Loqwc gap [Moles/Vol]8.6 mmol/LNormal6.0-15.0 The [facility] Physician GroupComment on above:Performed By: #### BMP ####[place] [address] [place] 6[address] USACalcium [Mass/Vol]8.9 mg/dLNormal8.6-10.3The [facility] Physician GroupComment on above: Performed By: #### BMP ####[address] [address] USAChloride [Moles/Vol]101 mmol/VDeoarr27-253Ipk [facility] Physician GroupComment on above:Performed By: #### BMP ####[address] [address] USACO2 [Moles/Vol]27.7 mmol/RBioely91.0-31.0The [facility] Physician GroupComment on above:Performed By: #### BMP ####[address] [address] USACreatinine [Mass/Vol]0.74 mg/dLNormal0.70-1.30The [facility] Physician Group Comment on above:Performed By: #### BMP ####[address] [address] USACreatinine Clr Calc Semmwjge33.20NormalThe [facility] Physician GroupComment on above:Result Comment: PERFORMED BY: [facility] [address] [place] [address] PATHOLOGIST PREPARATION PLANT SUPERVISOR MALLORIE GARCIA M.D.Performed By: #### BMP ####[address] [address] USAGFR/1.73 sq M.predicted MDRD (S/P/Bld) [Vol rate/Area]mL/min/{1.73_m2}NormalThe [facility] Physician Group Comment on above:Performed By: #### BMP ####[address] [address] USAGlucose [Mass/Vol]93 mg/vLHcokqh21-460Nef [facility] Physician GroupComment on above:Result Comment: Random Glucose Reference Range is dependent on time and content of last meal. Glucose of more than 200 mg/dL in a nonstressed, ambulatory subject supports the diagnosis of Diabetes Mellitus. ADA recommended reference rangePerformed By: #### BMP ####[address] [address] USAPotassium [Moles/Vol]4.3 mmol/LNormal3.5-5.1The [facility] Physician GroupComment on above:Performed By: #### BMP ####[address] [address] USASodium [Moles/Vol]133 mmol/SHjj086-595Hmq [facility] Physician GroupComment on above:Performed By: #### BMP ####[address] [address] USAUrea nitrogen [Mass/Vol]13 mg/dLNormal7-25The [facility] Physician GroupComment on above:Performed By: #### BMP ####[address] [address] USAECG 12 lead ECGon 69-84-5366LUQ 12 lead [facility] [address] [place] [address] [place] [address] Electrocardiograph Report Signed Patient: Mary Mcadams MR#: [id number] : 1955 Acct:[id number] Age/Sex: 68 / M ADM Date: 07/03/24 Loc: Room: [address] [place] [address] Type: ADM IN Attending Dr: Ambrose Hsieh MD Ordering Provider: Shannon Gonzalez MD, [facility] Date of Service: 07/08/24 ECG/ECG 12 lead [...] in Inferior leads Confirmed by Andres Herrera ([id number]) on 07/08/2024 8:57:10 AM Referred By: Electronically Signed By: Andres Herrera Transcribed By: MUS Signed By Andres Herrera MD 07/08/24 0857[facility] Medical CenterBasic Metabolic Panelon 44-95-9053Jlmsf gap [Moles/Vol]9.4 mmol/LNormal6.0-15.0The [facility] Medical CenterComment on above:Performed By: #### MG, BMP ####[address] [address] USACalcium [Mass/Vol]9.1 mg/dLNormal 8.6-10.3The [facility] Medical CenterComment on above:Performed By: #### MG, BMP ####[address] [address] USA Chloride [Moles/Vol]103 mmol/JJvcxbs45-106Pyj [facility] Medical CenterComment on above:Performed By: #### MG, BMP ####[place] [address] [place] [address] USACO2 [Moles/Vol]27.1 mmol/RMlsrza87.0-31.0The [facility] Medical CenterComment on above:Performed By: #### MG, BMP ####[address] [address] USA Creatinine [Mass/Vol]0.82 mg/dLNormal0.70-1.30The [facility] Physician Group Comment on above:Performed By: #### MG, BMP ####[address] [address] USACreatinine Clr Calc Syyyowqz90.25 NormalWellington Regional Medical Center Physician GroupComment on above:Performed By: #### MG, BMP ####[place] [address] [place] GFR/1.73 sq M.predicted MDRD (S/P/Bld) [Vol rate/Area]mL/min/{1.73_m2}NormalThe [facility] Physician GroupComment on above:Performed By: #### MG, BMP ####[place] [address] USAGlucose [Mass/Vol]88 mg/pYGrtdls89-416Xkh [facility] Physician GroupComment on above: Result Comment: Random Glucose Reference Range is dependent on time and content of last meal. Glucose of more than 200 mg/dL in a nonstressed, ambulatory subject supports the diagnosis of Diabetes Mellitus. ADA recommended reference rangePerformed By: #### MG, BMP ####[place] [address] USAPotassium [Moles/Vol]4.5 mmol/LNormal3.5-5.1The [facility] Physician GroupComment on above:Performed By: #### MG, BMP ####[place] [address] USASodium [Moles/Vol]135 mmol/NXrt812-831Vcy [facility] Physician Group Comment on above:Performed By: #### MG, BMP ####[address] [address] USAUrea nitrogen [Mass/Vol]13 mg/dLNormal 7-25The [facility] Physician GroupComment on above:Performed By: #### MG, BMP ####[address] [address] USAECG 12 lead ECGon 42-08-8018RRN 12 lead [facility] Main [place] [id number] Electrocardiograph Report Signed Patient: Mary Mcadams MR#: [id number] 3267 : 1955 Acct:[id number] Age/Sex: 68 / M ADM Date: 07/03/24 Loc: Room: [address] [place] [address] Type: ADM IN Attending Dr: Ambrose Hiseh MD Ordering Provider: Shannon Gonzalez MD, [facility] Date of Service: 07/07/24 ECG/ECG 12 lead [...] change was found Confirmed by Andres Herrera ([id number]) on 07/07/2024 1:01:29 PM Referred By: Electronically Signed By: Andres Herrera Transcribed By: MUS Signed By Andres Herrera MD 07/07/[address] [place] [address] Physician GroupMagnesiumon 47-79-3532Ksinqagpb [Mass/Vol]1.6 mg/dLLow1.9-2.7The [facility] Physician GroupComment on above: Result Comment: PERFORMED BY: [place] [id number] PATHOLOGIST PREPARATION PLANT SUPERVISOR MALLORIE GARCIA M.D.Performed By: #### MG, BMP ####[facility] [address] [place] [address] USAMagnesium [Mass/volume] in Serum or PlasmaOrdered By: Ambrose Hsieh on 37-64-0869Skjzabqrt [Mass/Vol] Magnesium [Mass/volume] in Serum or PlasmaLow1.9-2.7FDetwiler Memorial HospitalECG 12 lead ECGon 93-01-9502BSQ 12 lead [facility] [place] [address] Electrocardiograph Report Signed Patient: Mary Mcadams MR#: [id number] 3267 : 1955 Acct:[id number] Age/Sex: 68 / M ADM Date: 07/03/24 Loc: Room: [address] [place] [address] Type: ADM IN Attending Dr: Ambrose Hsieh MD Ordering Provider: Shannon Gonzalez MD, [facility] Date of Service: 07/06/24 ECG/ECG 12 lead [...] repolarization abnormality ( R in aVL , Turner product ) Abnormal ECG When compared with ECG of 05-Jul-2024 08:45, premature atrial complexes are no longer present QRS axis shifted left Confirmed by Andres Herrera ([id number]) on 07/06/2024 8:25:14 PM Referred By: Electronically Signed By: Andres Herrera Transcribed By: MUS Signed By Andres Herrera MD 07/06/242024[facility] Physician GroupErythrocyte distribution width Auto (RBC) [Ratio]Ordered By: Ambrose Hsieh on 94-32-2519Algcnrangwm distribution width (RBC) [Ratio]Erythrocyte distribution width [Ratio] by Automated count High12.0-14.8[facility] HospitalHematocrit Auto (Bld) [Volume fraction]Ordered By: Ambrsoe Hsieh on 49-94-0526Hadqmbeour (Bld) [Volume fraction]Hematocrit [Volume Fraction] of Blood by Automated zpudhRmt39.8-50.0 [facility] HospitalHemoglobin [Mass/volume] in BloodOrdered By: Ambrose Hsieh on 53-53-0217Qcoarhtupt (Bld) [Mass/Vol]Hemoglobin [Mass/volume] in SnwjuWfa10.0-17.0[facility] CenterHemogram CBC Without Diffon 86-72-2007Reyjmofjibe distribution width (RBC) [Ratio]16.0 %High12.0-14.8The [facility] Physician GroupComment on above:Performed By: #### BMP #### [place] [address] USAHematocrit (Bld) [Volume fraction]24.3 %Low38.8-50.0The [facility] Physician GroupComment on above:Performed By: #### BMP #### [place] [address] USAHemoglobin (Bld) [Mass/Vol]8.2 g/dLLow13.0-17.0The [facility] Physician GroupComment on above:Performed By: #### BMP #### [place] [address] USAMCH (RBC) [Entitic mass]27.9 hkMittdn27.5-35.2The [facility] Physician GroupComment on above:Performed By: #### BMP #### [place] [address] USAMCV (RBC) [Entitic vol]83.1 fLLow83.5-101The [facility] Physician GroupComment on above:Performed By: #### BMP #### [place] [address] USAMean Corpuscular HGB Conc33.6 g/uWXwgene45.5-35.6The [facility] Physician GroupComment on above:Performed By: #### BMP #### [place] [address] USAPlatelet mean volume (Bld) [Entitic vol]7.2 fLNormal 6.6-10.1The [facility] Physician GroupComment on above:Result Comment: PERFORMED BY: [place] [address] PATHOLOGIST [employer] SUPERVISOR MALLORIE GARCIA M.D.Performed By: #### BMP #### [place] [address] USAPlatelets (Bld) [#/Vol]294 10*3/sFGrqqwv599-810Gsp [facility] Physician GroupComment on above:Performed By: #### BMP #### [facility] [address] [place] [address] USARBC (Bld) [#/Vol]2.93 10*6/uLLow3.90-5.60The [facility] Physician GroupComment on above:Performed By: #### BMP #### [facility] [address] [place] [address] USAWBC (Bld) [#/Vol]5.2 10*3/uLNormal4.1-10.5The [facility] Physician GroupComment on above:Performed By: #### BMP #### [facility] [address] [place] [address] USALeukocytes [#/volume] corrected for nucleated erythrocytes in Blood by Automated counOrdered By: Ambrose Hsieh on 16-43-8538RWA corrected for nucl RBC Auto (Bld) [#/Vol]Leukocytes [#/volume] corrected for nucleated erythrocytes in Blood by Automated coun4.1-10.5FDetwiler Memorial Hospital MCH Auto (RBC) [Entitic mass]Ordered By: Ambrose Hsieh on 68-31-9216BBY (RBC) [Entitic mass]MCH [Entitic mass] by Automated count27.5-35.2FDetwiler Memorial HospitalMCHC Auto (RBC) [Mass/Vol]Ordered By: Ambrose Hsieh on 07-06-2024 MCHC (RBC) [Mass/Vol]MCHC [Mass/volume] by Automated count32.5-35.6FDetwiler Memorial HospitalMCV Auto (RBC) [Entitic vol]Ordered By: Ambrose Hsieh on 42-68-0029OVX (RBC) [Entitic vol]MCV [Entitic volume] by Automated countLow 83.5-101M[facility] HospitalPlatelet mean volume Auto (Bld) [Entitic vol]Ordered By: Ambrose Hsieh on 16-48-4076[place] mean volume (Bld) [Entitic vol]Platelet mean volume [Entitic volume] in Blood by Automated count 6.6-10.1FDetwiler Memorial HospitalPlatelets Auto (Bld) [#/Vol]Ordered By: Ambrose Hsieh on 89-45-8059Smqtdyypc (Bld) [#/Vol]Platelets [#/volume] in Blood by Automated efqwf313-426XcneoxnndMiddletown HospitalRBC Auto (Bld) [#/Vol] Ordered By: Ambrose Hsieh on 42-90-3170LYV (Bld) [#/Vol]Erythrocytes [#/volume] in Blood by Automated countLow3.90-5.60M[facility] HospitalECG 12 lead ECGon 16-75-7407IGQ 12 lead [facility] Main [place] [address] [place] [address] Electrocardiograph Report Signed Patient: Mary Mcadams MR#: [id number] : 1955 Acct:[id number] Age/Sex: 68 / M ADM Date: 07/03/24 Loc: Room: [address] [place] [address] Type: ADM IN Attending Dr: Ambrose Hsieh MD Ordering Provider: Shannon Gonzalez MD, [facility] Date of Service: 07/05/24 ECG/ECG 12 lead [...] QT has shortened Confirmed by Andres Herrera ([id number]) on 07/05/2024 5:14:01 PM Referred By: Electronically Signed By: Andres Herrera Transcribed By: MUS Signed By Andres Herrera MD 07/05/24 1714[facility] Physician GroupHemogram CBC Without Diffon 99-68-4845Ofrxqtvkbir distribution width (RBC) [Ratio]15.9 %High12.0-14.8ThWeiser Memorial Hospital Physician GroupComment on above:Performed By: #### BMP #### [place] [address] USAHematocrit (Bld) [Volume fraction]24.8 %Low38.8-50.0The [facility] Physician GroupComment on above:Performed By: #### BMP #### [place] [address] USAHemoglobin (Bld) [Mass/Vol]8.4 g/dLLow13.0-17.0The [facility] Physician GroupComment on above:Performed By: #### BMP #### [place] [address] USAMCH (RBC) [Entitic mass]28.0 qmHwqryc87.5-35.2The [facility] Physician GroupComment on above:Performed By: #### BMP #### [place] [address] USAMCV (RBC) [Entitic vol]83.0 fLLow83.5-101The [facility] Physician GroupComment on above:Performed By: #### BMP #### [place] [address] USAMean Corpuscular HGB Conc33.7 g/qBNcnrxh31.5-35.6The [facility] Physician GroupComment on above:Performed By: #### BMP #### [place] [address] USAPlatelet mean volume (Bld) [Entitic vol]7.0 fLNormal 6.6-10.1The [facility] Physician GroupComment on above:Result Comment: PERFORMED BY: [place] [address] PATHOLOGIST [employer] SUPERVISOR MALLORIE GARCIA M.D.Performed By: #### BMP #### [place] [address] USAPlatelets (Bld) [#/Vol]277 10*3/nBGlqaou713-009Axu [facility] Physician GroupComment on above:Performed By: #### BMP #### [address] [place] [address] USARBC (Bld) [#/Vol]2.99 10*6/uLLow3.90-5.60The [facility] Physician GroupComment on above:Performed By: #### BMP #### [facility] [address] [place] [address] USAWBC (Bld) [#/Vol]4.3 10*3/uLNormal4.1-10.5The [facility] Physician GroupComment on above:Performed By: #### BMP #### [facility] [address] [place] [address] USAAmphetamine Screen Ql (U)Ordered By: Susanne Motley on 98-96-4496Jbkzwjnzurdm Ql (U)Amphetamines screenNegMagruder HospitalAppearance of UrineOrdered By: Susanne Motley on 07-04-2024 Appearance (U)Urine appearanceAbnoMercy Health Perrysburg Hospital Bacteria [Presence] in Urine by AutomatedOrdered By: uSsanne Motley on 74-29-7905Bngzghct Auto Ql (U)Bacteria [Presence] in Urine by AutomatedHighNone [facility] Port[facility] Medical CenterBarbiturates [Presence] in Urine by Screen methodOrdered By: Susanne Motley on 16-52-5424Gygvhfgdfocc Screen Ql (U) Barbiturates [Presence] in Urine by Screen methodNegMagruder HospitalBasic Metabolic Panelon 19-92-2055Cixpc gap [Moles/Vol]13.7 mmol/L Normal6.0-15.0The [facility] Physician GroupComment on above:Performed By: #### BMP, PAB, MG, CBC ####[facility] [address] [place] [address] USACalcium [Mass/Vol]8.9 mg/dLNormal8.6-10.3The [facility] Physician GroupComment on above:Performed By: #### BMP, PAB, MG, CBC ####[facility] [address] [place] [address] USAChloride [Moles/Vol] 103 mmol/WEmzcxk91-248Cct [facility] Physician GroupComment on above:Performed By: #### BMP, PAB, MG, CBC ####[place] [address] USACO2 [Moles/Vol]22.1 mmol/IIozofl34.0-31.0The [facility] Physician GroupComment on above:Performed By: #### BMP, PAB, MG, CBC ####[place] [address] [place] Creatinine [Mass/Vol]0.85 mg/dLNormal0.70-1.30The [facility] Physician Group Comment on above:Performed By: #### BMP, PAB, MG, CBC ####[place] [address] USACreatinine Clr Calc Pharmacy 73.90NormSelect Medical Specialty Hospital - Youngstowne [facility] Physician GroupComment on above:Performed By: #### BMP, PAB, MG, CBC ####[place] [address] USAGFR/1.73 sq M.predicted MDRD (S/P/Bld) [Vol rate/Area]mL/min/{1.73_m2} NormalThe [facility] Physician GroupComment on above:Performed By: #### BMP, PAB, MG, CBC ####[place] [address] USAGlucose [Mass/Vol]77 mg/jOGtzsex46-680Cwg [facility] Physician GroupComment on above:Result Comment: Random Glucose Reference Range is dependent on time and content of last meal. Glucose of more than 200 mg/dL in a nonstressed, ambulatory subject supports the diagnosis of Diabetes Mellitus. ADA recommended reference rangePerformed By: #### BMP, PAB, MG, CBC ####[place] [id number] [place] Potassium [Moles/Vol]3.8 mmol/LNormal3.5-5.1The [facility] Physician GroupComment on above:Performed By: #### BMP, PAB, MG, CBC ####[place] [address] USASodium [Moles/Vol]135 mmol/PHnq127-553 The [facility] Physician GroupComment on above:Performed By: #### BMP, PAB, MG, CBC ####[facility] [address] [place] [id number] [place] Urea nitrogen [Mass/Vol]12 mg/dLNormal7-25The [facility] Physician GroupComment on above:Performed By: #### BMP, PAB, MG, CBC ####[facility] [address] [place] [id number] USABasophils Auto (Bld) [#/Vol]Ordered By: Maricruz Godoy on 65-90-6337Qudttjzps (Bld) [#/Vol]Automated basophil count 0.0-0.2FDetwiler Memorial HospitalBasophils/100 WBC Auto (Bld)Ordered By: Maricruz Godoy on 28-94-6942Xqmlcthxs/100 WBC (Bld)Automated basophil %.[facility] HospitalBenzodiazepines Screen Ql (U)Ordered By: Susanne Motley on 08-17-2342Bvgjdbeprngjzjn Ql (U)Benzodiazepines [Presence] in Urine by Screen methodNegMagruder HospitalBenzoylecgonine [Presence] in Urine by Screen methodOrdered By: Susanne Motley on 35-18-5255Mqqqenshljzkvay Screen Ql (U)Benzoylecgonine [Presence] in Urine by Screen methodNegative [facility]letown HospitalBilirubin Test strip Ql (U)Ordered By: Susanne Motley on 82-52-9450Xjebnsrvk Ql (U)Bilirubin.total [Presence] in Urine by Test stripNegMagruder HospitalCannabinoids [Presence] in Urine by Screen methodOrdered By: Susanne Motley on 56-20-5494Mcgbwndynmnz Screen Ql (U)Cannabinoids [Presence] in Urine by Screen methodNegMagruder HospitalCommackinac straits hospital on above:These are unconfirmed results and should not be used for legal purposes. Drug Cut-Off Concentration: AMPH 1000 ng/mL TAHIRA 200 ng/mL KEHINDE 200 ng/mL COCM 300 ng/mL OP 300 ng/mL PCP 25 ng/mL THC 20 ng/mLColor Auto (U)Ordered By: Susanne Motley on 60-39-3006Cyxzy (U)Color of Urine by Auto [facility] HospitalComplete Blood Count Auto Diffon 42-71-9446Mrhzsjmak (Bld) [#/Vol]0.0 10*3/uLNormal0.0-0.2The [facility] Physician GroupComment on above:Result Comment: PERFORMED BY: [facility] [address] [facility] [place] [address] PATHOLOGIST [employer] SUPERVISOR MALLORIE GARCIA M.D.Performed By: #### BMP, PAB, MG, CBC ####[place] [address] USABasophils/100 WBC (Bld)0.5 %Normal.The [facility] Physician GroupComment on above:Performed By: #### BMP, PAB, MG, CBC ####[place] [address] USAEosinophils (Bld) [#/Vol]0.2 10*3/uLNormal0.0-0.45 The [facility] Physician GroupComment on above:Performed By: #### BMP, PAB, MG, CBC ####[place] [id number] [place] Eosinophils/100 WBC (Bld)3.2 %Normal.The [facility] Physician GroupComment on above:Performed By: #### BMP, PAB, MG, CBC ####[place] [id number] USAErythrocyte distribution width (RBC) [Ratio]16.2 %High12.0-14.8The [facility] Physician GroupComment on above: Performed By: #### BMP, PAB, MG, CBC ####[place] [id number] USAHematocrit (Bld) [Volume fraction]26.0 %Low 38.8-50.0The [facility] Physician GroupComment on above:Performed By: #### BMP, PAB, MG, CBC ####[place] [id number] USAHemoglobin (Bld) [Mass/Vol]8.8 g/dLLow13.0-17.0The [facility] Physician GroupComment on above:Performed By: #### BMP, PAB, MG, CBC ####[place] [address] USALymphocytes (Bld) [#/Vol]0.7 10*3/uLLow1.00-4.8The [facility] Physician GroupComment on above: Performed By: #### BMP, PAB, MG, CBC ####[place] [address] USALymphocytes/100 WBC (Bld)12.4 %Normal.The [facility] Physician GroupComment on above:Performed By: #### BMP, PAB, MG, CBC ####[address] StreetMCH (RBC) [Entitic mass]28.0 jkPojojk27.5-35.2The [facility] Physician GroupComment on above:Performed By: #### BMP, PAB, MG, CBC ####[address] StreetMCV (RBC) [Entitic vol]83.4 fLLow 83.5-101The [facility] Physician GroupComment on above:Performed By: #### BMP, PAB, MG, CBC ####[place] [address] USAMean Corpuscular HGB Conc33.6 g/gNNzbnux27.5-35.6The [facility] Physician GroupComment on above:Performed By: #### BMP, PAB, MG, CBC ####[place] [address] [place] Monocytes (Bld) [#/Vol]0.7 10*3/uLNormal0.0-0.8The [facility] Physician Group Comment on above:Performed By: #### BMP, PAB, MG, CBC ####[place] [address] USAMonocytes/100 WBC (Bld)12.3 % Normal.The [facility] Physician GroupComment on above:Performed By: #### BMP, PAB, MG, CBC ####[place] [address] USANeutrophils (Bld) [#/Vol]3.9 10*3/uLNormal1.8-7.7The [facility] Physician GroupComment on above:Performed By: #### BMP, PAB, MG, CBC ####[address] Neutrophils/100 WBC (Bld)71.6 %Normal.The [facility] Physician GroupComment on above:Performed By: #### BMP, PAB, MG, CBC ####[place] [address] USANRBC%0.1 /100{WBC}Normal0-0.5The [facility] Physician GroupComment on above:Performed By: #### BMP, PAB, MG, CBC ####[address] Platelet mean volume (Bld) [Entitic vol]7.6 fLNormal6.6-10.1The [facility] Physician GroupComment on above:Performed By: #### BMP, PAB, MG, CBC ####[place] [address] [place] Platelets (Bld) [#/Vol]296 10*3/oWWibgvz294-160Ihh [facility] Physician Group Comment on above:Performed By: #### BMP, PAB, MG, CBC ####[place] [address] USARBC (Bld) [#/Vol]3.12 10*6/uL Low3.90-5.60The [facility] Physician GroupComment on above:Performed By: #### BMP, PAB, MG, CBC ####[place] [address] USAWBC (Bld) [#/Vol]5.4 10*3/uLNormal4.1-10.5The [facility] Physician GroupComment on above:Performed By: #### BMP, PAB, MG, CBC ####[facility] [place] [address] USACrystals [Presence] in Urine by AutomatedOrdered By: Susanne Motley on 86-35-2472Qcqxqkoc Auto Ql (U)Crystals [Presence] in Urine by AutomatedMiddletown Hospital Dipstick and Microscopicon 88-52-4991Wxoqkuygpf (U)TurbidCritically abnormal ClearThe [facility] Physician GroupComment on above:Order Comment: Name Collection Type:: Straight CatheterPerformed By: #### ADDONUAPLUS, CUU ####[place] [address] [facility], [address] [place] Bacteria,Urine4+HighNone SeenThe [facility] Physician GroupComment on above:Order Comment: Name Collection Type:: Straight CatheterPerformed By: #### ADDONUAPLUS, CUU ####[address] [address] USABilirubin,UrineNegativeNormalNegativeThe [facility] Physician Group Comment on above:Order Comment: Name Collection Type:: Straight Catheter Performed By: #### ADDONUAPLUS, CUU ####[address], [address] USABudding Yeast,Urine3+HighNone SeenThe [facility] Physician GroupComment on above:Order Comment: Name Collection Type:: Straight CatheterPerformed By: #### ADDONUAPLUS, CUU ####[address], [place] USAColor (U)YellowNormalYellowThe [facility] Physician GroupComment on above:Order Comment: Name Collection Type:: Straight CatheterPerformed By: #### ADDONUAPLUS, CUU ####[place] [address] [facility], [address] USAGlucose Ql (U)NormalNormal NormalThe [facility] Physician GroupComment on above:Order Comment: Name Collection Type:: Straight CatheterPerformed By: #### ADDONUAPLUS, CUU ####[address], [address] USAHyaline Casts,UrineNoneNormal0-8The [facility] Physician GroupComment on above:Order Comment: Name Collection Type:: Straight CatheterPerformed By: #### ADDONUAPLUS, CUU ####[place] [address] [facility] Campusjack[place], [id number] [place] Ketones Ql (U)NegativeNormalNegativeWellington Regional Medical Center Physician GroupComment on above:Order Comment: Name Collection Type:: Straight CatheterPerformed By: #### ADDONUAPLUS, CUU ####[address] [place] [address] USALeukocyte esterase Test strip Ql (U)4+HighNegativeThe [facility] Physician GroupComment on above:Order Comment: Name Collection Type:: Straight CatheterPerformed By: #### ADDONUAPLUS, CUU ####[address]jack[address], [place] USANitrite,UrineNegativeNormalNegativeWellington Regional Medical Center Physician GroupComment on above:Order Comment: Name Collection Type:: Straight CatheterPerformed By: #### ADDONUAPLUS, CUU ####[place] [address] Mccartyangela Ferreirafirsthealth moore regional hospitaljacklyn, [place] USANon-Squamous Epithelial Cell,U 3-4HighNone SeenThe [facility] Physician GroupComment on above:Order Comment: Name Collection Type:: Straight CatheterPerformed By: #### ADDONUAPLUS, CUU ####[address], [place] USAOccult Blood,Urine3+HighNegativeThe [facility] Physician GroupComment on above:Order Comment: Name Collection Type:: Straight CatheterResult Comment: PERFORMED BY: [facility] [address] [place] [address] PATHOLOGIST [employer] SUPERVISOR MALLORIE GARCIA M.D.Performed By: #### ADDLATONIAPLUS, CUU ####[address], [place] USAOthe Crystals,Urine1+ NormalThe [facility] Physician GroupComment on above:Order Comment: Name Collection Type:: Straight CatheterPerformed By: #### ADDONUAPLUS, CUU ####[address]ang[address] [place], [address] USApH (U) 6.0 [pH]Normal5.0-9.0The [facility] Physician GroupComment on above:Order Comment: Name Collection Type:: Straight CatheterPerformed By: #### ADDCARUAPLUS, CUU ####[place] [address] [address], [id number] [place] Protein (U) [Mass/Vol]30 mg/dLHighNegativeThe [facility] Physician GroupComment on above:Order Comment: Name Collection Type:: Straight CatheterPerformed By: #### ADDCARUAPLUS, CUU ####[address] Ferreirafirsthealth moore regional hospitaljacklynAMARGOSA [place], [place] USARBC,UrineInnumerableHigh0-4The [facility] Physician GroupComment on above:Order Comment: Name Collection Type:: Straight Catheter Performed By: #### MEGHA, CUU ####[address] Hannafirsthealth moore regional hospitaljacklyn, [place] USASpecificy [place],Urine1.227Hnbm3.001-1.030The [facility] Physician GroupComment on above:Order Comment: Name Collection Type:: Straight CatheterPerformed By: #### MEGHA, CUU ####[address] Hannafirsthealth moore regional hospitaljacklynAMARGOSA [place], [place] USASperm,Tdinf4-4Rtex9-9Mgz [facility] Physician GroupComment on above:Order Comment: Name Collection Type:: Straight CatheterResult Comment: PERFORMED BY: [facility] [address] [place] [address] PATHOLOGIST [employer] SUPERVISOR MALLORIE GARCIA M.D.Performed By: #### MEGHA, CUU ####[address] Hannafirsthealth moore regional hospitaljacklyn, [place] USAUrobilinogen,Urine NormalNormalNormalThe [facility] Bar[facility] GroupComment on above:Order Comment: Name Collection Type:: Straight CatheterPerformed By: #### DYLONPLUS, CUU ####[address] Hannafirsthealth moore regional hospitalCol[place], [place] USAWBC CLUMP, UrineManyHighNone SeenThe [facility] Physician GroupComment on above:Order Comment: Name Collection Type:: Straight CatheterPerformed By: #### MEGHA, CUU ####[facility] [place] [address] USAWBC,UrineInnumerableHigh0-4The [facility] Physician GroupComment on above:Order Comment: Name Collection Type:: Straight CatheterPerformed By: #### ADDLATONIAPLUS, CUU ####[facility] [place], [place] [address] USADrug Screen,Urineon 25-64-8199Zrevbdejnor Screen,UrineNegativeNormal NegativeThe [facility] Physician GroupComment on above:Performed By: #### BMP #### [place] [address] USABarbiturate Screen,UrineNegativeNormalNegativeThe [facility] Physician GroupComment on above:Performed By: #### BMP #### [place] [address] USABenzodiazepines Screen,UrineNegativeNormalNegativeThe [facility] Physician GroupComment on above:Performed By: #### BMP #### [place] [address] USACannabinoid Screen,UrineNegativeNormalNegativeWellington Regional Medical Center Physician GroupComment on above:Result Comment: These are unconfirmed results and should not be used for legal purposes. Drug Cut-Off Concentration: AMPH 1000 ng/mL TAHIRA 200 ng/mL KEHINDE 200 ng/mL COCM 300 ng/mL OP 300 ng/mL PCP 25 ng/mL THC 20 ng/mL PERFORMED BY: [place] [address] PATHOLOGIST [employer] SUPERVISOR MALLORIE GARCIA M.D.Performed By: #### BMP #### [place] [address] USACocaine Screen,UrineNegativeNormalNegativeThe [facility] Physician GroupComment on above:Performed By: #### BMP #### [facility] [address] [place] [address] USAOpiate Screen,UrineNegativeNormalNegativeWellington Regional [facility] Center Physician GroupComment on above:Performed By: #### BMP #### [facility] [address] [place] [address] USAPhencyclidine Screen,UrineNegativeNormalNegativeThe [facility] Physician GroupComment on above:Performed By: #### BMP #### [facility] [address] [place] [address] USAECG 12 lead ECGon 80-75-7221SYV 12 lead [facility] Main [place] [address] [place] [address] Electrocardiograph Report Signed Patient: Mary Mcadams MR#: [id number] : 1955 Acct:[id number] Age/Sex: 68 / M ADM Date: 07/03/24 Loc: Room: [address] [place] [address] Type: ADM IN Attending Dr: Ambrose Hsieh [...] premature atrial complexes are no longer present FL interval has increased Questionable change in QRS axis T wave inversion no longer evident in Inferior leads Confirmed by Andres Herrera ([id number]) on 07/04/2024 2:11:13 PM Referred By: Electronically Signed By: Andres Herrera Transcribed By: MUS Signed By Andres Herrera MD 07/04/24 1411[facility] Physician GroupEosinophils Auto (Bld) [#/Vol] Ordered By: Maricruz Godoy on 02-28-4929Kgnytdiuzsg (Bld) [#/Vol]Automated eosinophil count0.0-0.45Middletown HospitalEosinophils/100 WBC Auto (Bld)Ordered By: Maricruz Godoy on 33-05-0454Pdzsbdhsnqv/100 WBC (Bld) Automated eosinophil %.Middletown HospitalEpithelial cells.non- squamous [#/area] in Urine sediment by Automated countOrdered By: Susanne Motley on 41-45-2651Ydcpfxxyqo cells.non-squamous Auto (Urine sed) [#/Area]Epithelial cells.non-squamous [#/area] in Urine sediment by Automated countHighNone Seen [facility]own HospitalEpithelial cells.squamous [#/area] in Urine sediment by Automated countOrdered By: Susanne Motley on 85-14-1738Ecdhfsfoey cells.squamous Auto (Urine sed) [#/Area]Epithelial cells.squamous [#/area] in Urine sediment by Automated countMiddletown HospitalErythrocytes [#/area] in Urine sediment by Automated countOrdered By: Susanne Motley on 06-46-1139QOL Auto (Urine sed) [#/Area]Erythrocytes [#/area] in Urine sediment by Automated countHigh0-4FDetwiler Memorial HospitalGlucose [Mass/volume] in Urine by Test stripOrdered By: Susanne Motley on 70-08-6481Mzqgrhc Test strip (U) [Mass/Vol]Glucose [Mass/volume] in Urine by Test stripNormalMiddletown HospitalHemoglobin Test strip Ql (U)Ordered By: Susanne Motley on 00-64-8635Lralpqqfwv Ql (U)Hemoglobin [Presence] in Urine by Test stripHigh NegativeMiddletown HospitalHyaline casts [#/area] in Urine sediment by Automated countOrdered By: Susanne Motley on 07-44-5796Pmbagef casts Auto (Urine sed) [#/Area]Hyaline casts [#/area] in Urine sediment by Automated count0-8M[facility]own HospitalKetones Test strip Ql (U)Ordered By: Susanne Motley on 31-34-6397Opwdvxg Ql (U)Ketones [Presence] in Urine by Test stripNegativeMiddletown HospitalLeukocyte clumps [Presence] in Urine by AutomatedOrdered By: Susanne Motley on 09-10-6154Fnhcplozl clumps Auto Ql (U)Leukocyte clumps [Presence] in Urine by AutomatedHighNone SeenMiddletown HospitalLeukocyte esterase [Presence] in Urine by Test strip Ordered By: Susanne Motley on 45-61-9041Ensvbumxx esterase Test strip Ql (U) Leukocyte esterase [Presence] in Urine by Test stripHighNegativeMiddletown HospitalLeukocytes [#/area] in Urine sediment by Automated count Ordered By: Susanne Motley on 02-21-8197IEB Auto (Urine sed) [#/Area]Leukocytes [#/area] in Urine sediment by Automated countHigh0-4FDetwiler Memorial HospitalLymphocytes Auto (Bld) [#/Vol]Ordered By: Maricruz Godoy on 07-04-2024 Lymphocytes (Bld) [#/Vol]Lymphocytes [#/volume] in Blood by Automated countLow 1.00-4.8M[facility]own HospitalLymphocytes/100 WBC Auto (Bld)Ordered By: Maricruz Godoy on 99-46-5114Gtetanubxgi/100 WBC (Bld)Lymphocytes/100 leukocytes in Blood by Automated count.M[facility]own HospitalMagnesiumon 44-73-7942Bkzrpsfzq [Mass/Vol]1.9 mg/dLNormal1.9-2.7The [facility] Physician GroupComment on above:Performed By: #### BMP, PAB, MG, CBC ####[facility] [address] [place] [address] USAMonocytes Auto (Bld) [#/Vol]Ordered By: Maricruz Godoy on 74-65-5196Xrtjcapwh (Bld) [#/Vol]Automated blood monocyte count0.0-0.8M[facility] HospitalMonocytes/100 WBC Auto (Bld)Ordered By: Maricruz Godoy on 78-69-7646Fhqcjmmcy/100 WBC (Bld)Automated monocyte %.[facility]own HospitalNeutrophils Auto (Bld) [#/Vol] Ordered By: Maricruz Godoy on 45-92-0770Mkzasvwsxiw (Bld) [#/Vol]Neutrophils [#/volume] in Blood by Automated count1.8-7.7FDetwiler Memorial Hospital Neutrophils/100 WBC Auto (Bld)Ordered By: Maricruz Godoy on 07-04-2024 Neutrophils/100 WBC (Bld)Automated neutrophil %.M[facility]own HospitalNitrite Test strip Ql (U)Ordered By: Susanne Motley on 04-68-3483Npyjngz Ql (U)Nitrite [Presence] in Urine by Test stripNegativeMiddletown HospitalNucleated erythrocytes [Presence] in Blood by Automated count Ordered By: Maricruz Godoy on 47-61-4342Liikawljj RBC Auto Ql (Bld)Nucleated erythrocytes [Presence] in Blood by Automated count0-0.5FDetwiler Memorial HospitalOpiates [Presence] in Urine by Screen methodOrdered By: Susanne Motley on 21-57-9909Dhiajji Screen Ql (U)Opiates [Presence] in Urine by Screen methodNegativeMiddletown HospitalPhencyclidine Screen Ql (U) Ordered By: Susanne Motley on 98-69-0676Ydjbnipgweqtk Ql (U)Phencyclidine [Presence] in Urine by Screen methodNegMagruder Hospital Prealbuminon 40-32-7126Ogyhipfxbv [Mass/Vol]4.2 mg/dLLow17.0-34.0The [facility] Physician GroupComment on above:Result Comment: PERFORMED BY: [facility] [address] [place] [address] PATHOLOGIST [employer]PERVISOR MALLORIE GARCIA M.D.Performed By: #### BMP, PAB, MG, CBC ####[facility] [address] [place] [address] USAPrealbumin [Mass/volume] in Serum or PlasmaOrdered By: Maricruz Godoy on 90-77-8045Oyhzexigdr [Mass/Vol]Prealbumin [Mass/volume] in Serum or ImefurDvq75.0-34.0M[facility]own HospitalProtein Test strip (U) [Mass/Vol]Ordered By: Susanne Motley on 92-74-7089Dvmrazt (U) [Mass/Vol]Protein [Mass/volume] in Urine by Test stripHighNegAdena Pike Medical Centerpecific gravity Test strip (U) [Rel density]Ordered By: Susanne Motley on 53-91-7380Abobuaem gravity (U) [Rel density]Specific gravity of Urine by Test stripHigh1.001-1.030[facility] Rita's Medical Centerpermatozoa [#/area] in Urine sediment by Automated count Ordered By: Susanne Motley on 43-81-8057Oeyljwdxvhi Auto (Urine sed) [#/Area] Spermatozoa [#/area] in Urine sediment by Automated countHigh0-2FDetwiler Memorial HospitalUS venous duplex LE BIon 46-70-9263KP venous duplex LE BI [facility] [address] [place] [address] [place], [place] [address] Ultrasound Report Signed Patient: Mary Mcadams MR#: [id number] : 1955 Acct:[id number] Age/Sex: 68 / M ADM Date: 07/03/24 Loc: Room: [address] [place] [address] Type: ADM IN Attending Dr: Ambrose Hsieh [...] Baudilio Moura MD07/04/2024 8:38 AM Dictation Location: [facility]04 Tech: Melanie Garcia Transcribed By: JEANIE 07/04/24 0838 Dictated By: Baudilio Moura MD 07/04/24837 Signed By: 07/04/24 0838NoLifeBrite Community Hospital [facility] Physician GroupUrine Cultureon 07-04-2024 Bacteria identified Cx Nom (U)ORGANISM: Strep agalactiae - (group b) (O:STRAGA) [place] Count >100,000 Organism Comments Pure Growth PERFORMED BY: [address] [address] PATHOLOGIST [employer] SUPERVISOR MALLORIE GARCIA M.D.NormalThe [facility] Physician GroupComment on above: Performed By: #### MEGHA, CUU ####[facility] [address] [place], [place] USAUrine cultureOrdered By: Susanne Motley on 31-16-8467Iptypjyz identified Cx Nom (U)Group B Strep (Streptococcus agalactiae) AbnormalMiddletown HospitalUrobilinogen Test strip (U) [Mass/Vol] Ordered By: Susanne Motley on 20-99-5491Hobgbojqsrgn (U) [Mass/Vol]Urobilinogen [Mass/volume] in Urine by Test stripNormalMiddletown HospitalWBC Auto (Bld) [#/Vol]Ordered By: Maricruz Godoy on 31-35-5285PMC (Bld) [#/Vol] Leukocytes [#/volume] in Blood by Automated count4.1-10.5FDetwiler Memorial HospitalYeast.budding [Presence] in Urine by Computer assisted method Ordered By: Susanne Motley on 51-98-3601Xpqzb.budding Computer assisted Ql (U) Yeast.budding [Presence] in Urine by Computer assisted methodHighNone Seen Middletown HospitalpH Test strip (U)Ordered By: Susanne Motley on 38-99-1924qI (U)pH of Urine by Test strip5.0-9.0M[facility] HospitalAcetaminophenon 02-09-4093Budmujmeqoztx [Mass/Vol]0.1 ug/mLLow10.0-30.0The [facility] Physician GroupComment on above:Result Comment: PERFORMED BY: [facility] [address] [place] [address] PATHOLOGIST [employer] SUPERVISOR MALLORIE GARCIA M.D.Performed By: #### CMP, CBC #### [facility] [address] [place] [address] USAAcetaminophen [Mass/volume] in Serum or PlasmaOrdered By: Susanne Motley on 21-26-7211Selddcddstkra [Mass/Vol]Acetaminophen [Mass/volume] in Serum or TxtwrrKlt86.0-30.0M[facility] HospitalAlanine aminotransferase [Enzymatic activity/volume] in Serum or PlasmaOrdered By: Susanne Motley on 42-60-2697QLR [Catalytic activity/Vol]Alanine aminotransferase [Enzymatic activity/volume] in Serum or Plasma7-52M[facility]own HospitalAlbumin [Mass/volume] in Serum or Plasma by Bromocresol green (BCG) dye binding methoOrdered By: Susanne Motley on 37-23-4714Pxrsabv BCG dye [Mass/Vol] Albumin [Mass/volume] in Serum or Plasma by Bromocresol green (BCG) dye binding metho3.5-5.7FDetwiler Memorial HospitalAlkaline phosphatase [Enzymatic activity/volume] in Serum or PlasmaOrdered By: Susanne Motley on 32-41-1601XDU [Catalytic activity/Vol]Alkaline phosphatase [Enzymatic activity/volume] in Serum or NooyasDjze41-913GxcvkutxrMiddletown HospitalAspartate aminotransferase [Enzymatic activity/volume] in Serum or PlasmaOrdered By: Susanne Motley on 21-97-7675XVF [Catalytic activity/Vol]Aspartate aminotransferase [Enzymatic activity/volume] in Serum or Blfopv34-17ExpezwxwcMiddletown HospitalBasophils Auto (Bld) [#/Vol]Ordered By: Susanne Motley on 26-79-2772Ejqkmrexh (Bld) [#/Vol]Automated basophil count0.0-0.2FDetwiler Memorial HospitalBasophils/100 WBC Auto (Bld)Ordered By: Susanne Motley on 50-93-5987Qfmfvzcqd/100 WBC (Bld)Automated basophil %.[facility]own HospitalBilirubin.total [Mass/volume] in Serum or PlasmaOrdered By: Susanne Motley on 57-36-1936Homqntkps [Mass/Vol]Bilirubin.total [Mass/volume] in Serum or Plasma0.3-1.0M[facility] HospitalCOVID Cepheid NegativeOrdered By: Susanne Motley on 86-98-3227FOBE-CoV-2 (COVID-19) Ab IA QlCOVID Cepheid NegativeMiddletown HospitalComment on above:This is a duplicate Cepheid Xpert [...] or Cepheid Disclaimer revoked sooner. PERFORMED BY: [facility] [place] [address] PATHOLOGIST [employer] SUPERVISOR MALLORIE GARCIA M.D.[facility] Physician GroupComment on above: Performed By: #### BMP #### [address] [address] USACT abdomen pelvis w conon 16-13-4468KK abdomen pelvis w [facility] [place] [address] [place] [address] CT Scan Report Signed Patient: Mary Mcadams MR#: [id number] : 1955 Acct:[id number] Age/Sex: 68 / M ADM Date: 07/03/24 [...] Juliocesar Varela M.D.07/03/2024 9:23 PM Dictation Location: [place] [address] Transcribed By: [facility] 07/03/242122 Dictated By: Juliocesar Varela II, MD 07/03/242108 Signed By: 07/03/24 [facility]Or[facility] Physician GroupCT angio chest PE protocolon 08-26-1047TR angio chest PE protocolLICKING [facility] [place] [address] [place] [address] CT Scan Report Signed Patient: Mary Mcadams MR#: [id number] 3267 : 1955 Acct:[id number] Age/Sex: 68 / M ADM Date: 07/03/24 Loc: Room: [address] [place] [address] Type: ADM IN Attending Dr: Altaf Jones [...] II, MD 07/03/24 225 Signed By: 07/03/24 2259[facility] Physician GroupCT head/brain wo conon 73-28-6458YA head/brain wo [facility] [place] [address] [place] [address] CT Scan Report Signed Patient: Mary Mcadams MR#: [id number] : 1955 Acct:[id number] Age/Sex: 68 / M ADM Date: 07/03/24 [...] Juliocesar Varela M.D.07/03/2024 9:09 PM Dictation Location: [facility] Transcribed By: JEANIE 07/03/242108 Dictated By: Juliocesar Varela II, MD 07/03/242103 Signed By: 07/03/242108NormCleveland Clinic [facility] Physician GroupCalcium [Mass/volume] in Serum or PlasmaOrdered By: Susanne Motley on 52-28-1117Awbpsrp [Mass/Vol]Calcium [Mass/volume] in Serum or Plasma8.6-10.3FDetwiler Memorial HospitalCarbon dioxide, total [Moles/volume] in Serum or PlasmaOrdered By: Susanne Motley on 55-54-8024LL3 [Moles/Vol]Carbon dioxide, total [Moles/volume] in Serum or Plasma 21.0-31.0M[facility] HospitalCepheid COVID PCR Negativeon 37-56-8115SXFA-CoV-2 (COVID-) RNA HOWIE+probe Ql (Unsp spec)NegativeNormal NegativeThe [facility] Physician GroupComment on above:Result Comment: This is a duplicate Cepheid Xpert Xpress CoV-2/Flu/RSV Plus RNA by RT-PCR result to be used for statistical tracking purpose only. PERFORMED BY: [place] [address] PATHOLOGIST [employer] SUPERVISOR MALLORIE GARCIA M.D.Performed By: #### BMP #### [address] [address] USAChloride [Moles/volume] in Serum or PlasmaOrdered By: Susanne Motley on 13-05-0238Ttojayaz [Moles/Vol]Chloride [Moles/volume] in Serum or Mxczak06-034HlifopwawMiddletown HospitalComplete Blood Count Auto Diff on 10-50-6579Nsrrkounc (Bld) [#/Vol]0.0 10*3/uLNormal0.0-0.2The [facility] Physician GroupComment on above:Result Comment: PERFORMED BY: [place] [address] PATHOLOGIST [employer] SUPERVISOR MALLORIE GARCIA M.D.Performed By: #### CMP, CBC #### [address] [address] USABasophils/100 WBC (Bld)0.7 %Normal.The [facility] Physician GroupComment on above:Performed By: #### CMP, CBC #### [place] [address] USAEosinophils (Bld) [#/Vol]0.2 10*3/uLNormal0.0-0.45The [facility] Physician GroupComment on above:Performed By: #### CMP, CBC #### [place] [address] USAEosinophils/100 WBC (Bld)2.7 %Normal.The [facility] Physician GroupComment on above:Performed By: #### CMP, CBC #### [place] [address] USAErythrocyte distribution width (RBC) [Ratio]16.2 %High 12.0-14.8The [facility] Physician GroupComment on above:Performed By: #### CMP, CBC #### [place] [address] USAHematocrit (Bld) [Volume fraction]30.7 %Low38.8-50.0The [facility] Physician GroupComment on above:Performed By: #### CMP, CBC #### [place] [address] USAHemoglobin (Bld) [Mass/Vol]10.3 g/dLLow13.0-17.0The [facility] Physician GroupComment on above:Performed By: #### CMP, CBC #### [place] [address] USALymphocytes (Bld) [#/Vol]0.7 10*3/uLLow1.00-4.8The [facility] Physician GroupComment on above:Performed By: #### CMP, CBC #### [place] [address] USALymphocytes/100 WBC (Bld)12.4 %Normal.The [facility] Physician GroupComment on above:Performed By: #### CMP, CBC #### [place] [address] USAH (RBC) [Entitic mass]28.1 lbYfgnfu51.5-35.2The [facility] Physician GroupComment on above:Performed By: #### CMP, CBC #### [place] [address] USAMCV (RBC) [Entitic vol]83.7 sWXogsek96.5-101The [facility] Physician GroupComment on above:Performed By: #### CMP, CBC #### [place] [address] USAMean Corpuscular HGB Conc33.6 g/lUFhtgvw08.5-35.6The [facility] Physician GroupComment on above:Performed By: #### CMP, CBC #### [place] [address] USAMonocytes (Bld) [#/Vol]0.6 10*3/uLNormal0.0-0.8The [facility] Physician GroupComment on above:Performed By: #### CMP, CBC #### [place] [address] USAMonocytes/100 WBC (Bld)18.01 %Normal0.00-20.00The [facility] Physician GroupComment on above:Performed By: #### CMP, CBC #### [place] [address] USAMonocytes/100 WBC (Bld)9.9 %Normal.The [facility] Physician GroupComment on above:Performed By: #### CMP, CBC #### [place] [address] USANeutrophils (Bld) [#/Vol]4.3 10*3/uLNormal1.8-7.7The [facility] Physician GroupComment on above:Performed By: #### CMP, CBC #### [place] [address] USANeutrophils/100 WBC (Bld)74.3 %Normal.The [facility] Physician GroupComment on above:Performed By: #### CMP, CBC #### [facility] [address] [place] [address] USANRBC%0.0 /100{WBC}Normal0-0.5The [facility] Physician Group Comment on above:Performed By: #### CMP, CBC #### [place] [address] USAPlatelet mean volume (Bld) [Entitic vol]7.7 fLNormal 6.6-10.1The [facility] Physician GroupComment on above:Performed By: #### CMP, CBC #### [place] [address] USAPlatelets (Bld) [#/Vol]327 10*3/hOZinntd554-823Xgh [facility] Physician GroupComment on above:Performed By: #### CMP, CBC #### [place] [address] USARBC (Bld) [#/Vol]3.67 10*6/uLLow3.90-5.60The [facility] Physician GroupComment on above:Performed By: #### CMP, CBC #### [place] [address] USAWBC (Bld) [#/Vol]5.8 10*3/uLNormal4.1-10.5The [facility] Physician GroupComment on above:Performed By: #### CMP, CBC #### [place] [address] USAComprehensive Metabolic Panelon 08-38-5203Xkvqtjk [Mass/Vol]3.8 g/dLNormal3.5-5.7The [facility] Physician GroupComment on above: Performed By: #### CMP, CBC #### [place] [address] USAAlbumin/Globulin [Mass ratio]0.9 {ratio}NormalThe [facility] Physician GroupComment on above:Performed By: #### CMP, CBC #### [place] [address] USAALP [Catalytic activity/Vol]124 U/WEbsb17-297Cli [facility] Physician GroupComment on above:Performed By: #### CMP, CBC #### [facility] [address] [place] [address] USAALT [Catalytic activity/Vol]10 U/LNormal7-52The [facility] Physician GroupComment on above:Performed By: #### CMP, CBC #### [facility] [address] [place] [address] USAAnion gap [Moles/Vol]14.5 mmol/LNormal6.0-15.0The [facility] Physician GroupComment on above:Performed By: #### CMP, CBC #### [facility] [address] [place] [address] USAAST [Catalytic activity/Vol]18 U/LXqafgl27-94Jcu [facility] Physician GroupComment on above:Performed By: #### CMP, CBC #### [facility] [address] [place] [address] USABilirubin [Mass/Vol]0.9 mg/dLNormal0.3-1.0The [facility] Physician GroupComment on above:Performed By: #### CMP, CBC #### [facility] [address] [place] [address] USACalcium [Mass/Vol]9.7 mg/dLNormal8.6-10.3The [facility] Physician GroupComment on above:Performed By: #### CMP, CBC #### [facility] [address] [place] [address] USAChloride [Moles/Vol]99 mmol/PXcwbkj95-605Szm [facility] Physician GroupComment on above:Performed By: #### CMP, CBC #### [facility] [address] [place] [address] USACO2 [Moles/Vol]24.4 mmol/EAgtbyb61.0-31.0The [facility] Physician GroupComment on above:Performed By: #### CMP, CBC #### [facility] [address] [place] [address] USACreatinine [Mass/Vol]1.12 mg/dLNormal0.70-1.30The [facility] Physician GroupComment on above:Performed By: #### CMP, CBC #### [place] [address] USACreatinine Clr Calc Nzvwjupx11.91NormCleveland Clinic Indian [facility] Physician GroupComment on above:Result Comment: PERFORMED BY: [place] [address] PATHOLOGIST [employer] SUPERVISOR MALLORIE GARCIA M.D.Performed By: #### CMP, CBC #### [place] [address] USAGFR/1.73 sq M.predicted MDRD (S/P/Bld) [Vol rate/Area] mL/min/{1.73_m2}NormalThe [facility] Physician GroupComment on above:Performed By: #### CMP, CBC #### [place] [address] USAGlobulin (S) [Mass/Vol]4.1 g/dLNoLifeBrite [facility] Physician GroupComment on above:Performed By: #### CMP, CBC #### [place] [address] USAGlucose [Mass/Vol]107 mg/vZDbnj18-664Fdk [facility] Physician GroupComment on above:Result Comment: Random Glucose Reference Range is dependent on time and content of last meal. Glucose of more than 200 mg/dL in a nonstressed, ambulatory subject supports the diagnosis of Diabetes Mellitus. ADA recommended reference rangePerformed By: #### CMP, CBC #### [place] [address] USAPotassium [Moles/Vol]3.9 mmol/LNormal3.5-5.1The [facility] Physician GroupComment on above:Performed By: #### CMP, CBC #### [place] [address] USAProtein [Mass/Vol]7.9 g/dLNormal6.4-8.9The [facility] Physician GroupComment on above:Performed By: #### CMP, CBC #### [place] [address] USASodium [Moles/Vol]134 mmol/SNuh552-342Yno [facility] Physician GroupComment on above:Performed By: #### CMP, CBC #### [facility] [address] [place] [address] USAUrea nitrogen [Mass/Vol]15 mg/dLNormal7-25The [facility] Physician GroupComment on above:Performed By: #### CMP, CBC #### [facility] [address] [place] [address] USACreatinine [Mass/volume] in Serum or PlasmaOrdered By: Susanne Motley on 61-27-0720Rraygbjkth [Mass/Vol]Creatinine [Mass/volume] in Serum or Plasma0.70-1.30M[facility]letown HospitalD-Dimer High Sensitivityon 73-65-2055B-Dimer High Btoqpuardwp982 ng/mLHigh0-243The [facility] Physician [facility] HospitalComment on above:Result Comment: The reference range [...] coagulation studies. Please contact the laboratory at [phone] for redraw instructions. PERFORMED BY: [address] [address] PATHOLOGIST [employer] SUPERVISOR MALLORIE GARCIA M.D.Performed By: #### CMP, CBC #### [facility] [address] [place] [address] USAECG 12 lead ECGon 15-63-1165LIJ 12 lead [facility]GLICK[facility] [place] [address] [place] [address] Electrocardiograph Report Signed Patient: Mary Mcadams MR#: [id number] : 1955 Acct:[id number] Age/Sex: 68 / M ADM Date: 07/03/24 Loc: Room: [address] [place] [address] Type: ADM IN Attending Dr: Ambrose Hsieh [...] ST abnormality Confirmed by Susanne Motley MD ([id number]) on 07/04/2024 8:06:28 AM Referred By: Electronically Signed By: Susanne Motley MD Transcribed By: MUS Signed By Susanne Motley MD 06/[address] [place] [address] Physician GroupEC 12 lead [facility] [place] [address] [place] [address] Electrocardiograph Report Signed Patient: Mary Mcadams MR#: [id number] : 1955 Acct:[id number] Age/Sex: 68 / M ADM Date: 07/03/24 [...] have occurred Confirmed by Susanne Motley MD ([id number]) on 07/03/2024 8:28:50 PM Referred By: Electronically Signed By: Susanne Motley MD Transcribed By: MUS Signed By Susanne Motley MD 06/15NoLifeBrite [facility] Physician GroupEosinophils Auto (Bld) [#/Vol] Ordered By: Susanne Motley on 45-48-6810Vgasqwtmubu (Bld) [#/Vol]Automated eosinophil count0.0-0.45M[facility]own HospitalEosinophils/100 WBC Auto (Bld)Ordered By: Susanne Motley on 26-21-1916Nccdcoiikfi/100 WBC (Bld) Automated eosinophil %.M[facility]letown HospitalErythrocyte distribution width Auto (RBC) [Ratio]Ordered By: Susanne Motley on 48-42-8705Jwjtvkeqqtd distribution width (RBC) [Ratio]Erythrocyte distribution width [Ratio] by Automated ddrhjHoim82.0-14.8M[facility] HospitalEthanol [Mass/volume] in Serum or PlasmaOrdered By: Susanne Motley on 13-26-3970Xcrwsvd [Mass/Vol]Ethanol [Mass/volume] in Serum or PlasmaMiddletown HospitalComment on above:Test not performedEthyl Alcohol Profileon 07-03-2024 Ethanol [Mass/Vol]mg/dLNoLifeBrite [facility] Physician [facility] HospitalComment on above: Performed By: #### BMP #### [facility] [address] [place] [address] USAPercent EthanolNot performedNoLifeBrite Community Hospital of [facility] Physician [facility] HospitalComment on above:Result Comment: PERFORMED BY: [facility] [address] [place] [address] PATHOLOGIST [employer] SUPERVISOR MALLORIE GARCIA M.D.Performed By: #### BMP #### [facility] [address] [place] [address] USAFibrin D-dimer [Presence] in Platelet poor plasma by Latex agglutinationOrdered By: Susanne Motley on 06-37-4064Xaosiz D-dimer LA Ql (PPP) Fibrin D-dimer [Presence] in Platelet poor plasma by Latex agglutinationHigh 0-243M[facility]own HospitalComment on above:The reference range for D-dimer is [...] coagulation studies. Please contact the laboratory at [phone] for redraw instructions.Free T4 (Free Thyroxine)on 88-55-1897Nnge T4 [Mass/Vol]1.31 ng/dLHigh0.61-1.12The [facility] Physician GroupComment on above:Performed By: #### CMP, CBC #### [facility] [address] [place] [address] USAGlobulin Calc (S) [Mass/Vol]Ordered By: Susanne Motley on 18-49-7964Knrchnqs (S) [Mass/Vol]Serum globulin measurement by calculation (mass/volume)M[facility] HospitalGlucose [Mass/volume] in Serum or PlasmaOrdered By: Susanne Motley on 46-96-9933Dslomdk [Mass/Vol]Glucose [Mass/volume] in Serum or FtlhysPffk15-816NaqnncztiMiddletown Hospital Comment on above:ADA recommended reference rangeRandom Glucose Reference Range is dependent on time and content of last meal. Glucose of more than 200 mg/dL in a nonstressed, ambulatory subject supports the diagnosisof Diabetes Mellitus. Hematocrit Auto (Bld) [Volume fraction]Ordered By: Susanne Motley on 07-03-2024 Hematocrit (Bld) [Volume fraction]Hematocrit [Volume Fraction] of Blood by Automated qofmkAxp21.8-50.0[facility] HospitalHemoglobin [Mass/volume] in BloodOrdered By: Susanne Motley on 15-37-7763Qxmbkhbapp (Bld) [Mass/Vol]Hemoglobin [Mass/volume] in WwddcFpt40.0-17.0[facility] HospitalLeukocytes [#/volume] corrected for nucleated erythrocytes in Blood by Automated counOrdered By: Susanne Motley on 35-21-0365RUR corrected for nucl RBC Auto (Bld) [#/Vol]Leukocytes [#/volume] corrected for nucleated erythrocytes in Blood by Automated coun4.1-10.5FDetwiler Memorial Hospital Lymphocytes Auto (Bld) [#/Vol]Ordered By: Susanne Motley on 07-03-2024 Lymphocytes (Bld) [#/Vol]Lymphocytes [#/volume] in Blood by Automated countLow 1.00-4.8[facility] HospitalLymphocytes/100 WBC Auto (Bld)Ordered By: Susanne Motley on 99-93-4595Gdkraybxqcq/100 WBC (Bld)Lymphocytes/100 leukocytes in Blood by Automated count.[facility] HospitalMCH Auto (RBC) [Entitic mass]Ordered By: Susanne Motley on 31-53-8962EST (RBC) [Entitic mass]MCH [Entitic mass] by Automated count27.5-35.2FDetwiler Memorial HospitalMCHC Auto (RBC) [Mass/Vol]Ordered By: Susanne Motley on 50-91-1024KQGL (RBC) [Mass/Vol]MCHC [Mass/volume] by Automated count32.5-35.6FDetwiler Memorial HospitalMCV Auto (RBC) [Entitic vol]Ordered By: Susanne Motley on 87-54-2570LDA (RBC) [Entitic vol]MCV [Entitic volume] by Automated count83.5-101 [facility] HospitalMagnesiumon 76-46-9025Sxugdplwo [Mass/Vol]1.5 mg/dLLow1.9-2.7The [facility] Physician GroupComment on above:Performed By: #### CMP, CBC #### [facility] [address] [place] [address] USAMagnesium [Mass/volume] in Serum or PlasmaOrdered By: Susanne Motley on 16-77-2648Jnvbklknx [Mass/Vol]Magnesium [Mass/volume] in Serum or PlasmaLow1.9-2.7FDetwiler Memorial HospitalMonocyte distribution width [Entitic volume] in Blood by AutomatedOrdered By: Susanne Motley on 02-19-2025 Monocyte distribution width Auto (Bld) [Entitic vol]Monocyte distribution width [Entitic volume] in Blood by Automated0.00-20.00[facility] HospitalMonocytes Auto (Bld) [#/Vol]Ordered By: Susanne Motley on 07-03-2024 Monocytes (Bld) [#/Vol]Automated blood monocyte count0.0-0.8[facility] HospitalMonocytes/100 WBC Auto (Bld)Ordered By: Susanne Motley on 92-35-5964Aghmovsbr/100 WBC (Bld)Automated monocyte %.[facility] HospitalNeutrophils Auto (Bld) [#/Vol]Ordered By: Susanne Motley on 07-03-2024 Neutrophils (Bld) [#/Vol]Neutrophils [#/volume] in Blood by Automated count 1.8-7.7FDetwiler Memorial HospitalNeutrophils/100 WBC Auto (Bld)Ordered By: Susanne Motley on 19-61-3073Ceuzdvpyvul/100 WBC (Bld)Automated neutrophil %. [facility] HospitalNo Panel InformationOrdered By: Susanne Motley on 48-65-1610Xursf Gas Critical ValueSee commentMiddletown HospitalComment on above:Critical Value called on: 07/03/2024 at 20:39Blood Gas Liter Ldia4OsvcgehylMiddletown HospitalBlood Gas Sample SiteVenousMiddletown HospitalFiO228% %[facility] HospitalOxygen Delivery DeviceNasal cannulaMiddletown HospitalVenous Blood Base Excess-3.8 mmol/LLow-3.0-3.0[facility] HospitalVenous Blood Oxygen Fotsjrwhki12.2 %Critically low73.0-76.0[facility] HospitalVenous Blood Partial Pressure CO240.0 mm[Hg]38.0-50.0[facility] Venous Blood pH7.357.32-7.43[facility] HospitalEstimated GFR (CKD-EPI)> 60.0 mL/MinMiddletown HospitalPharmacy Creatinine Clearance (Chem59.91M[facility]own HospitalNucleated erythrocytes [Presence] in Blood by Automated countOrdered By: Susanne Motley on 07-03-2024 Nucleated RBC Auto Ql (Bld)Nucleated erythrocytes [Presence] in Blood by Automated count0-0.5FDetwiler Memorial HospitalPartial Thromboplastin Time on 11-01-1274xNMO Coag (Bld) [Time]41.2 sHigh25.1-36.5The [facility] Physician GroupComment on above:Result Comment: A hematocrit value greater than 55% may lead to inaccurate results in coagulation testing. Patients having hematocrit values >55% require a special collection tube for coagulation studies. Please contact the laboratory at [phone] for redraw instructions.Performed By: #### BMP #### [facility] [address] [place] [address] USAPlatelet mean volume Auto (Bld) [Entitic vol]Ordered By: Susanne Motley on 57-07-2955Vkdrdwts mean volume (Bld) [Entitic vol]Platelet mean volume [Entitic volume] in Blood by Automated count6.6-10.1FDetwiler Memorial HospitalPlatelets Auto (Bld) [#/Vol]Ordered By: Susanne Motley on 97-89-7443Frqbcnjme (Bld) [#/Vol]Platelets [#/volume] in Blood by Automated -996GeknrayncMiddletown HospitalPotassium [Moles/volume] in Serum or PlasmaOrdered By: Susanne Motley on 39-90-5628Sltbzwvew [Moles/Vol]Potassium [Moles/volume] in Serum or Plasma3.5-5.1FDetwiler Memorial HospitalProtein [Mass/volume] in Serum or PlasmaOrdered By: Susanne Motley on 78-67-8117Axsotoz [Mass/Vol]Protein [Mass/volume] in Serum or Plasma6.4-8.9[facility] HospitalRBC Auto (Bld) [#/Vol]Ordered By: Susanne Motley on 38-72-7500NGA (Bld) [#/Vol]Erythrocytes [#/volume] in Blood by Automated countLow3.90-5.60 [facility] HospitalRespiratory specimen influenza A virus, influenza B virus, respiratory syncytical virOrdered By: Susanne Motley on 63-76-2185SAJB-CoV-2 (COVID-19) RNA HOWIE+probe Ql (Unsp spec)Respiratory specimen influenza A virus, influenza B virus, respiratory syncytical virMercy Health St. Rita's Medical CenterARS-CoV-2 (COVID-19) RNA HOWIE+probe Ql (Unsp spec) Respiratory specimen influenza A virus, influenza B virus, respiratory syncytical [facility] Hospitalalicylateon 28-93-0894Rzhxmppflk <1.5Low15.0-30.0The [facility] Physician GroupComment on above:Result Comment: Patients treated with Sulfasalazine may generate a false high result for Salicylate.Performed By: #### BMP #### [facility] [address] [place] [address] USASalicylates [Mass/volume] in Serum or PlasmaOrdered By: Susanne Motley on 97-18-9731Xewbhbfnqcr [Mass/Vol]Salicylates [Mass/volume] in Serum or ElluaqMqy49.0-30.0[facility] HospitalComment on above: Patients treated with Sulfasalazine may generate a false high result for Salicylate.Serum or plasma albumin/globulin mass ratioOrdered By: Susanne Motley on 90-30-2013Vzummkf/Globulin [Mass ratio]Serum or plasma albumin/globulin mass ratioMercy Health St. Rita's Medical Centererum or plasma anion gap determination Ordered By: Susanne Motley on 73-01-3851Qlaci gap [Moles/Vol]Serum or plasma anion gap determination6.0-15.0[facility]'s Medical Centerodium [Moles/volume] in Serum or PlasmaOrdered By: Susanne Motley on 06-51-3976Udlklo [Moles/Vol]Sodium [Moles/volume] in Serum or PtxbadMkw244-646RpgihoukcMiddletown HospitalThyroid Stimulating Hormoneon 86-66-0667IVL Qn2.93 m[IU]/LNormal 0.45-5.33The [facility] Physician GroupComment on above:Result Comment: PERFORMED BY: [facility] [address] [place] [address] PATHOLOGIST [employer]PERVISOR MALLORIE GARCIA M.D.Performed By: #### CMP, CBC #### [facility] [address] [place] [address] USAThyrotropin [Units/volume] in Serum or PlasmaOrdered By: Susanne Motley on 98-54-0866UKB QnThyrotropin [Units/volume] in Serum or Plasma 0.45-5.33[facility] HospitalThyroxine (T4) free [Mass/volume] in Serum or PlasmaOrdered By: Susanne Motley on 17-77-4965Tqye T4 [Mass/Vol] Thyroxine (T4) free [Mass/volume] in Serum or PlasmaHigh0.61-1.12[facility] HospitalTroponin I High Sensitivityon 08-43-9695Qpbesqpu I High Izaaroiogel00Myemko5-42Zwe [facility] Physician GroupComment on above:Result Comment: The Troponin units of report have been changed to meet the Chest Pain Accreditation requirement, element EC5.M1l2. Troponin units are changed from pg/ml to ng/L. Also, the decimal is removed and results are in whole numbers. PERFORMED BY: [place] [address] PATHOLOGIST [employer] SUPERVISOR MALLORIE GARCIA M.D.Performed By: #### HS TROP ####[facility] [address] [place] [address] USATroponin I High Aedffjagkzb80 Normal0-20The [facility] Physician GroupComment on above:Result Comment: The Troponin units of report have been changed to meet the Chest Pain Accreditation requirement, element EC5.M1l2. Troponin units are changed from pg/ml to ng/L. Also, the decimal is removed and results are in whole numbers. PERFORMED BY: [place] [address] PATHOLOGIST [employer] SUPERVISOR MALLORIE GARCIA M.D.Performed By: #### CMP, CBC #### [facility] [address] [place] [id number] USATroponin I.cardiac [Mass/volume] in Serum or Plasma by Detection limit <= 0.01 ng/Ordered By: Susanne Motley on 24-41-7107Dnhhixcg I.cardiac DL <= 0.01 ng/mL [Mass/Vol]Troponin I.cardiac [Mass/volume] in Serum or Plasma by Detection limit <= 0.01 ng/0-20[facility] Comment on above:The Troponin units of report have been changed to meet the Chest Pain Accreditation requirement, element EC5.M1l2. Troponin units are changed from pg/ml to ng/L. Also, the decimal is removed and results are in whole numbers.Urea nitrogen [Mass/volume] in Serum or PlasmaOrdered By: Susanne Motley on 13-25-7337Snty nitrogen [Mass/Vol]Urea nitrogen [Mass/volume] in Serum or Plasma12-06[facility] HospitalUrine cultureOrdered By: Susanne Motley on 81-38-9238Masgdwli identified Cx Nom (U)Group B Strep (Streptococcus agalactiae)AbnormalMiddletown HospitalVenous Blood GasOrdered By: Susanne Motley on 45-17-6197YX5 [Moles/Vol]22.8 mmol/LLow 24.0-29.0[facility] HospitalComment on above:Performed By: #### VBG ####Point of Care testing,HCO3 (Bld) [Moles/Vol]21.5 mmol/LLow23.0-29.0 [facility] HospitalComment on above:Performed By: #### VBG ####Point of Care testing,Venous Blood Gason 14-03-9392Edexrr DeviceNasal CannulaNoLifeBrite Community [facility] Physician GroupComment on above:Performed By: #### VBG ####Point of Care testing,Respiratory CriticalNoLifeBrite [facility] Stokes Physician GroupComment on above:Result Comment: Critical Value called on: 07/03/2024 at 20:39 PERFORMED BY: [facility] [address] [place] [address] PATHOLOGIST [employer] SUPERVISOR MALLORIE GARCIA M.D.Performed By: #### VBG ####Point of Care testing,VBG Base Excess-3.8 mmol/LLow-3.0-3.0The [facility] Physician GroupComment on above: Performed By: #### VBG ####Point of Care testing,VBG Draw SiteVenousNoLifeBrite [facility] Physician GroupComment on above:Performed By: #### VBG ####Point of Care testing,VBG Frac Inspired O228%NormalThe [facility] Physician GroupComment on above:Performed By: #### VBG ####Point of Care testing,VBG Liter Ctyj6Sonpro The [facility] Physician GroupComment on above:Performed By: #### VBG ####Point of Care testing,VBG Oxygen Jnnjdypmwp98.2 %Off scale low73.0-76.0The [facility] Physician GroupComment on above:Performed By: #### VBG ####Point of Care testing,VBG XIT461.0 mm[Hg]Npndal14.0-50.0The [facility] Physician GroupComment on above:Performed By: #### VBG ####Point of Care testing,VBG PH Venous PH7.35 Normal7.32-7.43The [facility] Physician GroupComment on above:Performed By: #### VBG ####Point of Care testing,WBC Auto (Bld) [#/Vol]Ordered By: Susanne Motley on 22-19-5998MCG (Bld) [#/Vol]Leukocytes [#/volume] in Blood by Automated count 4.1-10.5FDetwiler Memorial HospitalX-ray reportOrdered By: Juliocesar Varela on 91-93-7828Xsokc reportLICKING MEMORIAL [place] [address] XRay Report Signed Patient: Mary Mcadams MR#: [id number] : 1955 Acct:[id number] Age/Sex: 68 / M ADM Date: 5 [...] Varela II, MD 07/03/242101 Signed By: 07/03/242103 [facility] Work Phone: XR chest 2V*on 65-11-2704KF chest 2V*[facility] [address] [place] [address] [place] [address] XRay Report Signed Patient: Mary Mcadams MR#: [id number] : 1955 Acct:[id number] Age/Sex: 68 / M ADM Date: 07/03/24 [...] Juliocesar Varela II, MD 07/03/242101 Signed By: 07/03/242103[facility] Physician GroupaPTT in Platelet poor plasma by Coagulation assayOrdered By: Susanne Motley on 83-89-8908nXZZ Coag (PPP) [Time] Activated partial thromboplastin time (aPTT) in platelet poor plasma by coagulation aHi25.1-36.5FDetwiler Memorial HospitalComment on above:A hematocrit value greater than 55% may lead to inaccurate results in coagulation testing. Patientshaving hematocrit values >55% require a special collection tube for coagulation studies. Please contact the laboratory at [phone] for redraw instructions.[facility] Heart Perfusion W stress and W radionuclide Juanjose 88-71-6764Zkidax Lexiscan Myoview cardiac perfusion stress test. No evidence of ischemia or myocardial infarction by perfusion imaging. Normal left ventricular systolic function, ejection fraction 57%. No previous study available for comparison. Signed by: Chacho Burroughs 06/12/2024 5:53 PM Dictation workstation: [id number] By: Chacho Burroughs and Giannuzzi Michael STUDY: MYOCARDIAL PERFUSION STRESS TEST WITH LEXISCAN Performing facility: [facility], [address] [place] [address], [address], [address] Provider: Shannon Gonzalez MD, FACC PCP: Dr. Mat Del Valle Supervising provider: Chacho Burroughs MD INDICATION: Fatigue NICM A-fib LV Thrombus HISTORY: Gender: M; Age: 68 y/o ; Height: HT 182.9 cm cm; Weight: WT 70.852 kg kg. Arrhythmias;A-fib SOB; COPD; Fatigue; Denies smoking. COMPARISON: No comparison. ACCESSION NUMBER(S): [id number] ORDERING CLINICIAN: SHANNON GONZALEZ TECHNIQUE: ONE DAY [...] Performing facility: [facility], [address] [place] [address], [address], [address] Provider: Shannon Gonzalez MD, [facility] PCP: Dr. Mat Del Valle Supervising provider: Chacho Burroughs MD INDICATION: Fatigue NICM A-fib LV Thrombus HISTORY: Gender: M; Age: 68 y/o ; Height: HT 182.9 cm cm; Weight: WT 70.852 kg kg. Arrhythmias;A-fib SOB; COPD; Fatigue; Denies smoking. COMPARISON: No comparison. ACCESSION NUMBER(S): [id number] ORDERING CLINICIAN: SHANNON GONZALEZ TECHNIQUE: ONE DAY [...] Chacho Burroughs 06/12/2024 5:53 PM Dictation workstation: [id number] [facility] Work Phone: Radiology Study observation (narrative)[facility] Work Phone: [facility] Heart Perfusion W stress and W radionuclide IV Ordered By: Chacho Burroughs on 51-81-2951FlfwzxjujxProMedica Flower Hospital Work Phone: NUCLEAR STRESS TESTon 72-11-0984RUYYLQT STRESS TEST Interpreted By: Chacho Burroughs and Giannuzzi Michael STUDY: MYOCARDIAL PERFUSION STRESS TEST WITH LEXISCAN Performing facility: [facility], [address] [place] [address], [address], [address] Provider: Shannon Gonzalez MD, FACC PCP: Dr. Mat Del Valle Supervising provider: Chacho Burroughs MD INDICATION: Fatigue NICM A-fib LV Thrombus HISTORY: Gender: M; Age: 68 y/o ; Height: HT 182.9 cm cm; Weight: WT 70.852 kg kg. Arrhythmias;A-fib SOB; COPD; Fatigue; Denies smoking. COMPARISON: No comparison. ACCESSION NUMBER(S): [id number] ORDERING CLINICIAN: SHANNON GONZALEZ TECHNIQUE: ONE DAY [...] Chacho Burroughs 06/12/2024 5:53 PM Dictation workstation: [id number] Health [facility] ECG 12 [place] 68-20-4207NAH revealed normal sinus rhythm, LVH with repolarization abnormalities and QRS widening, prolonged QT interval, abnormal ECGCPACSMcCullough-Hyde Memorial Hospital Work Phone: basophils Auto (Bld) [#/Vol]on 28-27-8420Hmtqffadp (Bld) [#/Vol]Automated basophil count0.0-0.1FDetwiler Memorial Hospital Basophils/100 WBC Auto (Bld)on 51-62-3860Fosbjxkqr/100 WBC (Bld)Automated basophil %0.2-2.0[facility] HospitalEosinophils/100 WBC Auto (Bld) on 46-13-2999Mgpshduhhej/100 WBC (Bld)Automated eosinophil %0.9-7.0[facility] HospitalErythrocyte distribution width Auto (RBC) [Ratio]on 55-50-8058Hkurbtwdxuk distribution width (RBC) [Ratio]Erythrocyte distribution width [Ratio] by Automated count11.0-15.0[facility] Estimated glomerular filtration rate (GFR) non- Americanon 05-22-2024 GFR/1.73 sq M.predicted among non-blacks MDRD (S/P/Bld) [Vol rate/Area]Estimated glomerular filtration rate (GFR) non->=60 mL/min/1.73m 2 [facility] HospitalGlobulin Calc (S) [Mass/Vol]on 05-22-2024 Globulin (S) [Mass/Vol]Serum globulin measurement by calculation (mass/volume) [facility] HospitalHematocrit Auto (Bld) [Volume fraction]on 03-91-8191Ccszsjrlet (Bld) [Volume fraction]Hematocrit [Volume Fraction] of Blood by Automated jhqhjOsr71.0-54.0[facility] HospitalHemoglobin [Mass/volume] in Bloodon 49-61-4209Ydbhklgrsl (Bld) [Mass/Vol]Hemoglobin [Mass/volume] in FgmrsLfm92.0-18.0[facility] HospitalLaboratory - Chemistry and Chemistry - challengeon 18-46-6197Vjyqnpr [Mass/Vol]2.9 g/dLLow 3.4-5.0[facility] HospitalALP [Catalytic activity/Vol]149 U/LHigh 46-116[facility] HospitalALT [Catalytic activity/Vol]15 U/LLow 16-63M[facility] HospitalAST [Catalytic activity/Vol]18 U/L15-37 [facility] HospitalBilirubin [Mass/Vol]0.8 mg/dL0.2-1.0[facility] HospitalCalcium [Mass/Vol]8.9 mg/dL8.5-10.1FDetwiler Memorial HospitalChloride [Moles/Vol]100 mmol/H85-507ZupjecbwcMiddletown HospitalCO2 [Moles/Vol]29.8 mmol/L21.0-32.0[facility] Creatinine [Mass/Vol]0.95 mg/dL0.70-1.30[facility] GFR/1.73 sq M.predicted MDRD (S/P/Bld) [Vol rate/Area]mL/min/{1.73_m2}>=60 mL/min/1.73m 2FDetwiler Memorial HospitalGlucose [Mass/Vol]82 mg/zB33-521 [facility] HospitalPotassium [Moles/Vol]4.0 mmol/L3.5-5.1FDetwiler Memorial HospitalProtein [Mass/Vol]6.2 g/dLLow6.4-8.2FSt. Rita's Hospitalodium [Moles/Vol]138 mmol/G734-432UqitwzaueMiddletown HospitalUrea nitrogen [Mass/Vol]11.0 mg/dL7.0-18.0[facility] HospitalUrea nitrogen/Creatinine [Mass ratio]11.6 mg/mgMiddletown HospitalLaboratory - Hematology and Cell countson 86-09-3112Qogzkspz granulocytes/100 WBC (Bld)0.5 %0.0-0.5FDetwiler Memorial Hospital Leukocytes [#/volume] corrected for nucleated erythrocytes in Blood by Automated counon 58-62-5166RVR corrected for nucl RBC Auto (Bld) [#/Vol]Leukocytes [#/volume] corrected for nucleated erythrocytes in Blood by Automated coun 4.0-11.0[facility] HospitalLymphocytes Auto (Bld) [#/Vol]on 01-50-5897Eyuzbdpyhec (Bld) [#/Vol]Lymphocytes [#/volume] in Blood by Automated countLow1.2-3.8[facility] HospitalLymphocytes/100 WBC Auto (Bld)on 28-68-3659Rtrmagozgrc/100 WBC (Bld)Lymphocytes/100 leukocytes in Blood by Automated xtqqsFcz24.5-60.0M[facility]letown HospitalMCH Auto (RBC) [Entitic mass]on 90-00-8855ATU (RBC) [Entitic mass]MCH [Entitic mass] by Automated count25.9-34.0[facility] HospitalMCHC Auto (RBC) [Mass/Vol]on 63-08-2657PYAG (RBC) [Mass/Vol]MCHC [Mass/volume] by Automated count29.9-35.2FDetwiler Memorial HospitalMCV Auto (RBC) [Entitic vol]on 54-16-1762PER (RBC) [Entitic vol]MCV [Entitic volume] by Automated count 80.0-94.0[facility] HospitalMonocytes Auto (Bld) [#/Vol]on 85-17-8840Qqiwacxoc (Bld) [#/Vol]Automated blood monocyte countHigh0.3-0.8 [facility] HospitalMonocytes/100 WBC Auto (Bld)on 05-22-2024 Monocytes/100 WBC (Bld)Automated monocyte %High1.7-12.0[facility] HospitalNeutrophils Auto (Bld) [#/Vol]on 89-76-1911Lcougcltobi (Bld) [#/Vol]Neutrophils [#/volume] in Blood by Automated count1.4-6.5FDetwiler Memorial HospitalNeutrophils/100 WBC Auto (Bld)on 05-22-2024 Neutrophils/100 WBC (Bld)Automated neutrophil %43.0-75.0[facility] HospitalNo Panel Informationon 29-99-0402Zgwhahliwwp # (Auto)0.3 10 3/uL 0.0-0.7FDetwiler Memorial HospitalImmature Granulocyte # (Auto)0.03 10 3/uL0.00-0.03[facility] HospitalPlatelet mean volume Auto (Bld) [Entitic vol]on 24-20-4108Pxzaemdb mean volume (Bld) [Entitic vol]Platelet mean volume [Entitic volume] in Blood by Automated count9.5-13.5FDetwiler Memorial HospitalPlatelets Auto (Bld) [#/Vol]on 95-00-7161Gesuzaskn (Bld) [#/Vol] Platelets [#/volume] in Blood by Automated pfgpu916-483NohfjznspMiddletown HospitalRBC Auto (Bld) [#/Vol]on 42-37-9845UJR (Bld) [#/Vol]Erythrocytes [#/volume] in Blood by Automated countLow4.70-6.10[facility] Rita's Medical Centererum or plasma albumin/globulin mass ratioon 22-52-5501Ndeohmi/Globulin [Mass ratio]Serum or plasma albumin/globulin mass ratioMercy Health St. Rita's Medical Centererum or plasma anion gap determinationon 36-64-9579Jnaty gap [Moles/Vol]Serum or plasma anion gap determinationMiddletown HospitalEstimated glomerular filtration rate (GFR) non- Americanon 69-63-2880VRY/1.73 sq M.predicted among non-blacks MDRD (S/P/Bld) [Vol rate/Area]Estimated glomerular filtration rate (GFR) non- AmericanLow>=60 mL/min/1.73m 2FDetwiler Memorial HospitalLaboratory - Chemistry and Chemistry - challengeon 09-73-4982Edvsixx [Mass/Vol]8.9 mg/dL8.5-10.1FDetwiler Memorial HospitalChloride [Moles/Vol]102 mmol/I67-175KkpnnqqxlMiddletown HospitalCO2 [Moles/Vol]25.4 mmol/L21.0-32.0[facility] HospitalCreatinine [Mass/Vol]1.26 mg/dL0.70-1.30[facility] GFR/1.73 sq M.predicted MDRD (S/P/Bld) [Vol rate/Area]mL/min/{1.73_m2}>=60 mL/min/1.[address]m [address] [place], [place] [address]Glucose [Mass/Vol]91 mg/aG48-664 [facility] HospitalPotassium [Moles/Vol]4.1 mmol/L3.5-5.1FSt. Rita's Hospitalodium [Moles/Vol]137 mmol/E393-031WviqbrwmeMiddletown HospitalUrea nitrogen [Mass/Vol]12.0 mg/dL7.0-18.0[facility] HospitalUrea nitrogen/Creatinine [Mass ratio]9.5 mg/mgMercy Health St. Rita's Medical Centererum or plasma anion gap determinationon 81-49-1264Myjge gap [Moles/Vol]Serum or plasma anion gap determinationMiddletown HospitalECG 12 Leadon 74-43-6769PJM revealed normal sinus rhythm, IVCD, prolonged QT interval, diffuse ST and T changes, abnormal ECGCPACSMcCullough-Hyde Memorial Hospital Work Phone: basic Metabolic Panelon 51-56-4185Mukdb gap [Moles/Vol]9.0 mmol/LNormal6.0-15.0The [facility] Physician GroupComment on above:Performed By: #### BMP #### [facility] [address] [place] [address] USACalcium [Mass/Vol]8.0 mg/dLLow8.6-10.3The [facility] Physician GroupComment on above:Result Comment: PERFORMED BY: [place] [address] PATHOLOGIST [employer] SUPERVISOR BETHANY ALBRIGHT M.D.Performed By: #### BMP #### [place] [address] USAChloride [Moles/Vol]100 mmol/VTjejwg36-633Gwl [facility] Physician GroupComment on above:Performed By: #### BMP #### [place] [address] USACO2 [Moles/Vol]30.3 mmol/JYruzqq61.0-31.0The [facility] Physician GroupComment on above:Performed By: #### BMP #### [facility] [address] [place] [address] USACreatinine [Mass/Vol]1.09 mg/dLNormal0.70-1.30The [facility] Physician GroupComment on above:Performed By: #### BMP #### [facility] [address] [place] [address] USAGFR/1.73 sq M.predicted MDRD (S/P/Bld) [Vol rate/Area] mL/min/{1.73_m2}NormalThe [facility] Physician GroupComment on above:Performed By: #### BMP #### [facility] [address] [place] [address] USAGlucose [Mass/Vol]98 mg/qTFkqtmm96-559Rtd [facility] Physician [facility] HospitalComment on above:Result Comment: Random Glucose Reference Range is dependent on time and content of last meal. Glucose of more than 200 mg/dL in a nonstressed, ambulatory subject supports the diagnosis of Diabetes Mellitus. ADA recommended reference rangePerformed By: #### BMP #### [facility] [address] [place] [address] USAPotassium [Moles/Vol]3.3 mmol/LLow3.5-5.1The [facility] Physician GroupComment on above:Performed By: #### BMP #### [facility] [address] [place] [address] USASodium [Moles/Vol]136 mmol/UVrbmtg571-105Esd [facility] Physician GroupComment on above:Performed By: #### BMP #### [facility] [address] [place] [address] USAUrea nitrogen [Mass/Vol]23 mg/dLNormal7-25The [facility] Physician GroupComment on above:Performed By: #### BMP #### [facility] [address] [id number] USACalcium [Mass/volume] in Serum or PlasmaOrdered By: Adam Del Valle on 36-98-8307Bhbnzuf [Mass/Vol]Calcium [Mass/volume] in Serum or PlasmaLow8.6-10.3FDetwiler Memorial HospitalCarbon dioxide, total [Moles/volume] in Serum or PlasmaOrdered By: Adam Del Valle 51-68-4777GU7 [Moles/Vol]Carbon dioxide, total [Moles/volume] in Serum or Cjtbsg71.0-31.0 [facility] HospitalChloride [Moles/volume] in Serum or Plasma Ordered By: Adam Del Valle 86-43-1424Otjvbxhi [Moles/Vol]Chloride [Moles/volume] in Serum or Btfjel81-645FbdfpxpbdMiddletown Hospital Creatinine [Mass/volume] in Serum or PlasmaOrdered By: Adam Del Valle 04-93-0391Klbgsuwmcx [Mass/Vol]Creatinine [Mass/volume] in Serum or Plasma 0.70-1.30[facility] HospitalGlucose [Mass/volume] in Serum or PlasmaOrdered By: Adam Del Valle on 01-11-9751Zmnllgf [Mass/Vol]Glucose [Mass/volume] in Serum or Hpqthq56-234AazaafalpMiddletown HospitalComment on above:ADA recommended reference rangeRandom Glucose Reference Range is dependent on time and content of last meal. Glucose of more than 200 mg/dL in a nonstressed, ambulatory subject supports the diagnosisof Diabetes Mellitus.No Panel InformationOrdered By: Adam Del Valle on 19-28-9043Igsfpwmmh GFR (CKD-EPI)> 60.0 mL/MinMiddletown HospitalPharmacy Creatinine Clearance (Chem N/[facility] CenterPotassium [Moles/volume] in Serum or Plasma Ordered By: Adam Del Valle on 80-05-9487Jqsekcieg [Moles/Vol]Potassium [Moles/volume] in Serum or PlasmaLow3.5-5.1FDetwiler Memorial Hospital Serum or plasma anion gap determinationOrdered By: Adam Del Valle on 03-26-2024 Anion gap [Moles/Vol]Serum or plasma anion gap determination6.0-15.0[facility] Medical Centerodium [Moles/volume] in Serum or PlasmaOrdered By: Adam Del Valle on 86-27-2311Wstsgg [Moles/Vol]Sodium [Moles/volume] in Serum or Otfmvj731-926RxvxixerrMiddletown HospitalUrea nitrogen [Mass/volume] in Serum or PlasmaOrdered By: Adam Del Valle on 45-49-6845Mijy nitrogen [Mass/Vol] Urea nitrogen [Mass/volume] in Serum or Plasma7-25M[facility] HospitalECG 12 lead ECGon 12-88-4632JRN 12 lead [facility] [place] [address] Electrocardiograph Report Signed Patient: Mary Mcadams MR#: [id number] 3267 : 1955 Acct:[id number] Age/Sex: 68 / M ADM Date: 03/13/24 Loc: Room: [address] [place] [address] Type: ADM IN Attending Dr: Altaf Jones MD Ordering Provider: Shannon Gonzalez MD, [facility] Date of Service: 03/20/2411/05/699 ECG/ECG 12 lead [...] By: MUS Signed By Shannon Gonzalez MD, [facility] 03/20/[address] [place] [address] Physician GroupECG 12 lead ECGon 39-21-6476ROQ 12 lead [facility] [place] [address] Electrocardiograph Report Signed Patient: Mary Mcadams MR#: [id number] 3267 : 1955 Acct:[id number] Age/Sex: 68 / M ADM Date: 03/13/24 Loc: Room: [address] [place] [address] Type: ADM IN Attending Dr: Altaf Jones MD Ordering Provider: Shannon Gonzalez MD, [facility] Date of Service: 03/19/2410/05/499 ECG/ECG 12 lead [...] Signed By Shannon Gonzalez MD, FACC 03/19/[address] [place] [address] Physician GroupBasic Metabolic Panelon 15-82-7584Natxmwhkrs Clr Calc Tkexjwpy47.44NormCleveland Clinic Indian [facility] Physician Group Comment on above:Result Comment: PERFORMED BY: [place] [address] PATHOLOGIST [employer]PER[employer] BETHANY ALBRIGHT M.D.Performed By: #### CMP, CBC #### [facility] [address] [place] [address] USAGFR/1.73 sq M.predicted MDRD (S/P/Bld) [Vol rate/Area] mL/min/{1.73_m2}NormalThe [facility] Physician GroupComment on above:Performed By: #### CMP, CBC #### [place] [address] USACalcium [Mass/volume] in Serum or PlasmaOrdered By: Altaf Jones on 80-36-3987Llrqlfu [Mass/Vol]8.6 mg/dLNormal8.6-10.3FDetwiler Memorial HospitalComment on above:Performed By: #### CMP, CBC #### [place] [address] USACalcium [Mass/Vol]Calcium [Mass/volume] in Serum or Plasma 8.6-10.3FDetwiler Memorial HospitalCarbon dioxide, total [Moles/volume] in Serum or PlasmaOrdered By: Altaf Jones on 46-43-7943VC7 [Moles/Vol]30.2 mmol/GXupddm19.0-31.0[facility] HospitalComment on above:Performed By: #### CMP, CBC #### [address] [id number] USACO2 [Moles/Vol]Carbon dioxide, total [Moles/volume] in Serum or Khvtnv32.0-31.0M[facility] HospitalChloride [Moles/volume] in Serum or PlasmaOrdered By: Altaf Jones on 42-81-0067Xrmnntri [Moles/Vol] 97 mmol/WYde79-137HnvwnusrnMiddletown HospitalComment on above:Performed By: #### CMP, CBC #### [address] [place] [address] USAChloride [Moles/Vol]Chloride [Moles/volume] in Serum or BotwgvOoq43-646BlluelrisMiddletown HospitalCreatinine [Mass/volume] in Serum or PlasmaOrdered By: Altaf Jones on 84-74-1905Ntjrbvjjgo [Mass/Vol]0.98 mg/dLNormal0.70-1.30[facility] HospitalComment on above:Performed By: #### CMP, CBC #### [facility] [address] [place], [place] [address] USACreatinine [Mass/Vol]Creatinine [Mass/volume] in Serum or Plasma0.70-1.30M[facility] HospitalECG 12 lead ECGon 28-96-3158YME 12 lead [facility] [place] [address] [place], [place] [address] Electrocardiograph Report Signed Patient: Mary Mcadams MR#: [id number] 3267 : 1955 Acct:[id number] Age/Sex: 68 / M ADM Date: 03/13/24 Loc: Room: [address] [place] [address] Type: ADM IN Attending Dr: Altaf Jones [...] QRS widening ( R in aVL , Turner product ) Abnormal ECG Confirmed by LISA SALMON FACSHANNON ([id number]) on 03/19/2024 2:11:56 PM Referred By: Shannon Gonzalez Electronically Signed By: SHANNON GONZALEZ MD FAC Transcribed By: MUS Signed By Shannon Gonzalez MD, FACC 03/19/[address] [place] [address] Physician GroupECG 12 lead [facility] [place] [address] [place] [address] Electrocardiograph Report Signed Patient: Mary Mcadams MR#: [id number] 3267 : 1955 Acct:[id number] Age/Sex: 68 / M ADM Date: 03/13/24 Loc: Room: [address] [place] [address] Type: ADM IN Attending Dr: Altaf Jones MD Ordering Provider: Shannon Gonzalez MD, [facility] Date of Service: 03/18/2409/05/499 ECG/ECG 12 lead [...] change was found Confirmed by LISA SALMON [facility] ([id number]) on 03/18/2024 11:34:31 AM Referred By: Electronically Signed By: SHANNON GONZALEZ MD [facility] Transcribed By: MUS Signed By Shannon Gonzalez MD, [facility] 03/18/[address] [place] [address] Physician GroupGlucose [Mass/volume] in Serum or PlasmaOrdered By: Altaf Jones on 00-31-2970Idwpkwg [Mass/Vol]93 mg/dL Olwrlk40-130TlsalpyjgMiddletown HospitalComment on above:ADA recommended reference rangeRandom Glucose Reference [...] reference rangePerformed By: #### CMP, CBC #### [place] [address] USAGlucose [Mass/Vol]Glucose [Mass/volume] in Serum or Plasma 70-100Firelands Regional Medical CenterComment on above:ADA recommended reference rangeRandom Glucose Reference Range is dependent on time and content of last meal. Glucose of more than 200 mg/dL in a nonstressed, ambulatory subject supports the diagnosisof Diabetes Mellitus.No Panel InformationOrdered By: Altaf Jones on 48-31-1704Eoauvgxro GFR (CKD-EPI)> 60.0 mL/MinMiddletown HospitalPharmacy Creatinine Clearance (Chem71.44M[facility] HospitalPotassium [Moles/volume] in Serum or PlasmaOrdered By: Altaf Jones on 67-69-4574Zwkkcxqht [Moles/Vol]4.1 mmol/LNormal3.5-5.1 [facility] HospitalComment on above:Performed By: #### CMP, CBC #### [facility] [address] [place] [address] USAPotassium [Moles/Vol]Potassium [Moles/volume] in Serum or Plasma3.5-5.1FSt. Rita's Hospitalerum or plasma anion gap determinationOrdered By: Altaf Jones on 72-22-5403Qnbds gap [Moles/Vol]8.9 mmol/LNormal6.0-15.0M[facility] HospitalComment on above:Performed By: #### CMP, CBC #### [facility] [address] [place] [address] USAAnion gap [Moles/Vol]Serum or plasma anion gap determination6.0-15.0[facility] Rita's Medical Centerodium [Moles/volume] in Serum or PlasmaOrdered By: Altaf Jones on 11-17-9715Gydaym [Moles/Vol]132 mmol/HPkg930-224JpaeuqaumMiddletown HospitalComment on above:Performed By: #### CMP, CBC #### [facility] [address] [id number] USASodium [Moles/Vol]Sodium [Moles/volume] in Serum or Plasma Fux710-074UxrixjhsmMiddletown HospitalUrea nitrogen [Mass/volume] in Serum or PlasmaOrdered By: Altaf Jones on 15-97-7506Pbgi nitrogen [Mass/Vol]31 mg/dL81 [address] StreetComment on above:Performed By: #### CMP, CBC #### [facility] [address] [id number] USAUrea nitrogen [Mass/Vol]Urea nitrogen [Mass/volume] in Serum or Plasma81 [address] StreetBasic Metabolic Panelon 03-89-1311Nhnrd gap [Moles/Vol]9.7 mmol/LNormal6.0-15.0The [facility] Physician GroupComment on above:Performed By: #### BMP ####[place] [address] USACalcium [Mass/Vol]8.7 mg/dLNormal 8.6-10.3The [facility] Physician GroupComment on above:Performed By: #### BMP ####[place] [address] [place] Chloride [Moles/Vol]96 mmol/WAnj16-361Bhm [facility] Physician GroupComment on above:Performed By: #### BMP ####[place] [id number] USACO2 [Moles/Vol]32.3 mmol/LHigh21.0-31.0The [facility] Physician GroupComment on above:Performed By: #### BMP ####[place] [address] USACreatinine [Mass/Vol]0.95 mg/dLNormal0.70-1.30The [facility] Physician GroupComment on above:Performed By: #### BMP ####[place] [address] USACreatinine Clr Calc Xyoozuok46.53NormalThe [facility] Physician GroupComment on above:Result Comment: PERFORMED BY: [address] [place] [id number] PATHOLOGIST [employer]PER[employer] BETHANY ALBRIGHT M.D.Performed By: #### BMP ####[place] [address] USAGFR/1.73 sq M.predicted MDRD (S/P/Bld) [Vol rate/Area]mL/min/{1.73_m2}NormalThe [facility] Physician GroupComment on above: Performed By: #### BMP ####[address] [place] [address] USAGlucose [Mass/Vol]111 mg/qJVmng32-948Ong [facility] Physician GroupComment on above:Result Comment: Random Glucose Reference Range is dependent on time and content of last meal. Glucose of more than 200 mg/dL in a nonstressed, ambulatory subject supports the diagnosis of Diabetes Mellitus. ADA recommended reference rangePerformed By: #### BMP ####[place] [address] USAPotassium [Moles/Vol]4.0 mmol/LNormal3.5-5.1The [facility] Physician GroupComment on above:Performed By: #### BMP ####[place] [address] USASodium [Moles/Vol]134 mmol/DBfp696-431Ksj [facility] Physician GroupComment on above:Performed By: #### BMP ####[address] [address] USAUrea nitrogen [Mass/Vol]28 mg/dLHigh7-25The [facility] Physician GroupComment on above:Performed By: #### BMP ####[place] [id number] USAECG 12 lead ECGon 03-83-9156UBF 12 lead [facility] [address] [place] [address] [place] [address] Electrocardiograph Report Signed Patient: Mary Mcadams MR#: [id number] 3267 : 1955 Acct:[id number] Age/Sex: 68 / M ADM Date: 03/13/24 Loc: Room: [address] [place] [address] Type: ADM IN Attending Dr: Altaf Jones MD Ordering Provider: Shannon Gonzalez MD, [facility] Date of Service: 03/17/2408/05/2321 ECG/ECG 12 lead [...] Gonzalez Electronically Signed By: SHANNON GONZALEZ MD [facility] Transcribed By: MUS Signed By Shannon Gonzalez MD, [facility] 03/19/[address] [place] [address] Physician GroupEC 12 lead [facility] [place] [address] [place] [address] Electrocardiograph Report Signed Patient: Mary Mcadams MR#: [id number] 3267 : 1955 Acct:[id number] Age/Sex: 68 / M ADM Date: 03/13/24 Loc: Room: [address] [place] [address] Type: ADM IN Attending Dr: Altaf Jones MD Ordering Provider: Shannon Gonzalez MD, [facility] Date of Service: 03/17/2408/05/1930 ECG/ECG 12 lead [...] Transcribed By: MUS Signed By Shannon Gonzalez MDCROWNPOINT [facility] 03/18/24 8484[facility] Physician GroupECG 12 lead [facility] [place] [address] [place] [address] Electrocardiograph Report Signed Patient: Mary Mcadams MR#: [id number] 3267 : 1955 Acct:[id number] Age/Sex: 68 / M ADM Date: 03/13/24 Loc: Room: [address] [place] [address] Type: ADM IN Attending Dr: Altaf Jones MD Ordering Provider: Shannon Gonzalez MD, [facility] Date of Service: 03/17/2408/05/499 ECG/ECG 12 lead [...] change was found Confirmed by Andres Herrera ([id number]) on 03/18/2024 8:41:55 AM Referred By: Electronically Signed By: Andres Herrera Transcribed By: MUS Signed By Andres Herrera MD 03/18/24 0841[facility] GroupBasic Metabolic Panelon 03-39-2945Ksaxm gap [Moles/Vol]11.9 mmol/LNormal6.0-15.0The [facility] Physician GroupComment on above:Performed By: #### CMP, CBC #### [facility] [address] [place] [address] USACalcium [Mass/Vol]8.2 mg/dLLow8.6-10.3The [facility] Physician GroupComment on above:Performed By: #### CMP, CBC #### [facility] [address] [place] [address] USAChloride [Moles/Vol]95 mmol/GUns67-321Kog [facility] Physician GroupComment on above:Performed By: #### CMP, CBC #### [place] [address] USACO2 [Moles/Vol]28.6 mmol/LGqejrz83.0-31.0The [facility] Physician GroupComment on above:Performed By: #### CMP, CBC #### [place] [address] USACreatinine [Mass/Vol]0.82 mg/dLNormal0.70-1.30The [facility] Physician GroupComment on above:Performed By: #### CMP, CBC #### [place] [address] USACreatinine Clr Calc Hcfdyuvn14.62NormalThe [facility] Physician GroupComment on above:Result Comment: PERFORMED BY: [place] [address] PATHOLOGIST [employer]PER[employer] BETHANY ALBRIGHT M.D.Performed By: #### CMP, CBC #### [place] [address] USAGFR/1.73 sq M.predicted MDRD (S/P/Bld) [Vol rate/Area] mL/min/{1.73_m2}NormalThe [facility] Physician GroupComment on above:Performed By: #### CMP, CBC #### [place] [address] USAGlucose [Mass/Vol]127 mg/qJMxvo94-546Bbr [facility] Physician GroupComment on above:Result Comment: Random Glucose Reference Range is dependent on time and content of last meal. Glucose of more than 200 mg/dL in a nonstressed, ambulatory subject supports the diagnosis of Diabetes Mellitus. ADA recommended reference rangePerformed By: #### CMP, CBC #### [place] [address] USAPotassium [Moles/Vol]3.5 mmol/LNormal3.5-5.1The [facility] Physician GroupComment on above:Performed By: #### CMP, CBC #### [place] [address] USASodium [Moles/Vol]132 mmol/PRbj937-297Bhg [facility] Physician GroupComment on above:Performed By: #### CMP, CBC #### [facility] [address] [id number] USAUrea nitrogen [Mass/Vol]22 mg/dLNormal [facility] Physician GroupComment on above:Performed By: #### CMP, CBC #### [facility] [address] [place] [address] USAECG 12 lead ECGon 12-42-0906CGI 12 lead [facility] [address] [place] [address] [place] [address] Electrocardiograph Report Signed Patient: Mary Mcadams MR#: [id number] 3267 : 1955 Acct:[id number] Age/Sex: 68 / M ADM Date: 03/13/24 Loc: Room: [address] [place] [address] Type: ADM IN Attending Dr: Altaf Jones MD Ordering Provider: Shannon Gonzalez MD, [facility] Date of Service: 03/16/2407/08/499 ECG/ECG 12 lead [...] for LVH, may be normal variant ( Turner product ) Nonspecific T wave abnormality Abnormal ECG When compared with ECG of 13-Mar-2024 20:43, No significant change was found Confirmed by Andres Herrera ([id number]) on 03/16/2024 5:51:30 PM Referred By: Electronically Signed By: Andres Herrera Transcribed By: MUS Signed By Andres Herrera MD 03/16/[address] [place] [address] Physician GroupBasic Metabolic Panelon 83-73-0916Kogvv gap [Moles/Vol]14.2 mmol/LNormal6.0-15.0The [facility] Physician GroupComment on above:Performed By: #### BMP ####[facility] [address] [address] USACalcium [Mass/Vol]8.9 mg/dLNormal 8.6-10.3The [facility] Physician GroupComment on above:Performed By: #### BMP ####[address] [address] USA Chloride [Moles/Vol]94 mmol/ZRyf94-460Yon [facility] Physician [facility] HospitalComment on above:Performed By: #### BMP ####[place] [id number] USACO2 [Moles/Vol]28.7 mmol/YGooivw63.0-31.0The [facility] Physician GroupComment on above:Performed By: #### BMP ####[place] [phone] USACreatinine [Mass/Vol] 0.89 mg/dLNormal0.70-1.30The [facility] Physician [facility] HospitalComment on above:Performed By: #### BMP ####[place] [address] USACreatinine Clr Calc Kurrwrjq53.89NoLifeBrite [facility] Physician Group Comment on above:Result Comment: PERFORMED BY: [facility] [address] [place] [phone] PATHOLOGIST [employer] SUPERVISOR BETHANY ALBRIGHT M.D.Performed By: #### BMP ####[place] [id number] USAGFR/1.73 sq M.predicted MDRD (S/P/Bld) [Vol rate/Area]mL/min/{1.73_m2}NormalThe [facility] Physician GroupComment on above: Performed By: #### BMP ####[address] [address] USAGlucose [Mass/Vol]141 mg/mXOxgh28-544Sgm [facility] Physician [facility] HospitalComment on above:Result Comment: Random Glucose Reference Range is dependent on time and content of last meal. Glucose of more than 200 mg/dL in a nonstressed, ambulatory subject supports the diagnosis of Diabetes Mellitus. ADA recommended reference rangePerformed By: #### BMP ####[address] [place] [address] USAPotassium [Moles/Vol]3.9 mmol/LNormal3.5-5.1The [facility] Physician GroupComment on above:Result Comment: Hemolysis is present at a level that could interfere with the result. Contact lab if redraw is requiredPerformed By: #### BMP ####[place] [address] USASodium [Moles/Vol]133 mmol/L Hpt039-111Kpj [facility] Physician GroupComment on above:Performed By: #### BMP ####[place] [address] USAUrea nitrogen [Mass/Vol]16 mg/dLNormal7-25The [facility] Physician GroupComment on above:Performed By: #### BMP ####[place] [phone] USAUS carotid doppler BIon 76-20-7091VM carotid doppler [facility] Main [place] [address] [place] [address] Ultrasound Report Signed Patient: Mary Mcadams MR#: [id number] 3267 : 1955 Acct:[id number] Age/Sex: 68 / M ADM Date: 03/13/24 Loc: Room: [address] [place] [address] Type: ADM IN Attending Dr: Altaf Jones [...] Grupo Mi M.D.03/15/2024 2:24 PM Dictation Location: [facility] Tech: Jemma Houston Transcribed By: JEANIE 03/15/24 142 Dictated By: Grupo Mi MD 03/15/24 142 Signed By: 03/15/24 1424[facility] Physician GroupAppearance of UrineOrdered By: Maricruz Godoy on 05-76-6519Pzbhgwssmv (U)Urine appearanceClearFDetwiler Memorial HospitalBacteria [Presence] in Urine by AutomatedOrdered By: Maricruz Godoy on 30-63-5872Iwndozyi Auto Ql (U)1+ [HPF]HighNone [facility] Port[facility] Medical CenterBacteria Auto Ql (U)Bacteria [Presence] in Urine by AutomatedHighMercy Health West HospitalBasophils Auto (Bld) [#/Vol]Ordered By: Maricruz Godoy on 70-36-2963Abbtxszrc (Bld) [#/Vol]0.1 10*3/uL0.0-0.2FDetwiler Memorial HospitalBasophils (Bld) [#/Vol]Automated basophil count0.0-0.2 [facility] HospitalBasophils/100 WBC Auto (Bld)Ordered By: Maricruz Godoy on 54-30-4184Qehcolvre/100 WBC (Bld)1.2 %.[facility] HospitalBasophils/100 WBC (Bld)Automated basophil %.[facility] HospitalBilirubin Test strip Ql (U)Ordered By: Maricruz Godoy on 65-62-0228Ilwhwliam Ql (U)NegativeNegativeMiddletown HospitalBilirubin Ql (U) Bilirubin.total [Presence] in Urine by Test stripNegativeMiddletown HospitalColor Auto (U)Ordered By: Maricruz Godoy on 61-75-0135Gniwk (U)Yellow YellowMiddletown HospitalColor (U)Color of Urine by AutoYellow [facility] HospitalEosinophils Auto (Bld) [#/Vol]Ordered By: Marircuz Godoy on 57-95-4204Qkhzfyiyvjg (Bld) [#/Vol]0.2 10*3/uL0.0-0.45M[facility] HospitalEosinophils (Bld) [#/Vol]Automated eosinophil count 0.0-0.45M[facility] HospitalEosinophils/100 WBC Auto (Bld)Ordered By: Maricruz Godoy on 22-89-2555Lyunxuryntd/100 WBC (Bld)2.3 %.[facility] HospitalEosinophils/100 WBC (Bld)Automated eosinophil %.[facility] Medical CenterEpithelial cells.squamous [#/area] in Urine sediment by Automated countOrdered By: Maricruz Godoy on 52-46-5850Plworgbvnz cells.squamous Auto (Urine sed) [#/Area]N/AFDetwiler Memorial HospitalEpithelial cells.squamous Auto (Urine sed) [#/Area]Epithelial cells.squamous [#/area] in Urine sediment by Automated countMiddletown HospitalErythrocyte distribution width Auto (RBC) [Ratio]Ordered By: Maricruz Godoy on 00-30-0206Mmokhrzbsii distribution width (RBC) [Ratio]13.5 %12.0-14.8M[facility] HospitalErythrocyte distribution width (RBC) [Ratio]Erythrocyte distribution width [Ratio] by Automated count12.0-14.8M[facility] HospitalErythrocytes [#/area] in Urine sediment by Automated countOrdered By: Maricruz Godoy on 13-68-5929HYW Auto (Urine sed) [#/Area]50-100 [HPF]High0-4FDetwiler Memorial HospitalRBC Auto (Urine sed) [#/Area]Erythrocytes [#/area] in Urine sediment by Automated countHigh046 Nielsen StreetGlucose [Mass/volume] in Urine by Test stripOrdered By: Maricruz Godoy on 12-78-7947Gomidqz Test strip (U) [Mass/Vol] Normal mg/dLNoSheltering Arms HospitalGlucose Test strip (U) [Mass/Vol]Glucose [Mass/volume] in Urine by Test stripNormSelect Medical Cleveland Clinic Rehabilitation Hospital, AvonHematocrit Auto (Bld) [Volume fraction]Ordered By: Maricruz Godoy on 92-93-8325Zgxcxsgptg (Bld) [Volume fraction]33.9 %Low38.8-50.0[facility] HospitalHematocrit (Bld) [Volume fraction]Hematocrit [Volume Fraction] of Blood by Automated xoyjmRiy88.8-50.0[facility] HospitalHemoglobin Test strip Ql (U)Ordered By: Maricruz Godoy on 72-06-0773Hfkdargtmh Ql (U)2+High NegativeMiddletown HospitalHemoglobin Ql (U)Hemoglobin [Presence] in Urine by Test stripHighNegativeMiddletown HospitalHemoglobin [Mass/volume] in BloodOrdered By: Maricruz Godoy on 06-55-9877Evcmmzgjgx (Bld) [Mass/Vol]11.3 g/dLLow13.0-17.0[facility] HospitalHemoglobin (Bld) [Mass/Vol]Hemoglobin [Mass/volume] in QksfpSnm43.0-17.0[facility] HospitalHyaline casts [#/area] in Urine sediment by Automated countOrdered By: Maricruz Godoy on 33-76-0759Uomcvhu casts Auto (Urine sed) [#/Area]None [LPF] 0-8M[facility] HospitalHyaline casts Auto (Urine sed) [#/Area] Hyaline casts [#/area] in Urine sediment by Automated count0-8M[facility] HospitalKetones Test strip Ql (U)Ordered By: Maricruz Godoy on 03-14-2024 Ketones Ql (U)NegativeNegMagruder HospitalKetlutheran hospital of [place] Ql (U) Ketones [Presence] in Urine by Test stripNegMagruder HospitalLaboratory - Microbiology and Antimicrobial susceptibilityOrdered By: Maricruz Godoy on 61-82-4266Qerajxye identified Cx Nom (U)Strep agalactiae - (group b)AbnormalMiddletown HospitalLeukocyte clumps [Presence] in Urine by AutomatedOrdered By: Maricruz Godoy on 64-66-9744Ihfusacdm clumps Auto Ql (U) Occasional [LPF]HighNone [facility] Portage Medical CenterLeukocyte clumps Auto Ql (U)Leukocyte clumps [Presence] in Urine by AutomatedHighCarondelet St. Joseph'S Hospitale Kindred Hospital LimaLeukocyte esterase [Presence] in Urine by Test stripOrdered By: Maricruz Godoy on 58-02-2602Zttcvvnbx esterase Test strip Ql (U)3+ HighNegMagruder HospitalLeukocyte esterase Test strip Ql (U)Leukocyte esterase [Presence] in Urine by Test stripHighNegMagruder HospitalLeukocytes [#/area] in Urine sediment by Automated count Ordered By: Maricruz Godoy on 61-15-2758BMN Auto (Urine sed) [#/Area]50-100 [HPF] High0-4FDetwiler Memorial HospitalWBC Auto (Urine sed) [#/Area]Leukocytes [#/area] in Urine sediment by Automated countHigh0-4FDetwiler Memorial HospitalLeukocytes [#/volume] corrected for nucleated erythrocytes in Blood by Automated counOrdered By: Maricruz Godoy on 30-61-9434AWH corrected for nucl RBC Auto (Bld) [#/Vol]7.8 10*3/uL4.1-10.5FDetwiler Memorial HospitalWBC corrected for nucl RBC Auto (Bld) [#/Vol]Leukocytes [#/volume] corrected for nucleated erythrocytes in Blood by Automated coun4.1-10.5FDetwiler Memorial HospitalLymphocytes Auto (Bld) [#/Vol]Ordered By: Maricruz Godoy on 83-93-0135Cawjcaktexk (Bld) [#/Vol]0.7 10*3/uLLow1.00-4.8[facility] HospitalLymphocytes (Bld) [#/Vol]Lymphocytes [#/volume] in Blood by Automated countLow1.00-4.8[facility] HospitalLymphocytes/100 WBC Auto (Bld)Ordered By: Maricruz Godoy on 40-32-7961Kvahfibtrmd/100 WBC (Bld)8.5 %. [facility] HospitalLymphocytes/100 WBC (Bld)Lymphocytes/100 leukocytes in Blood by Automated count.[facility] HospitalH Auto (RBC) [Entitic mass]Ordered By: Maricruz Godoy on 63-50-0105HZA (RBC) [Entitic mass]29.7 pg27.5-35.2FRegional Medical CenterH (RBC) [Entitic mass] MCH [Entitic mass] by Automated count27.5-35.2FDetwiler Memorial Hospital MCHC Auto (RBC) [Mass/Vol]Ordered By: Maricruz Godoy on 41-85-9969UOWE (RBC) [Mass/Vol]33.3 g/dL32.5-35.6FRegional Medical CenterHC (RBC) [Mass/Vol]MCHC [Mass/volume] by Automated count32.5-35.6FDetwiler Memorial HospitalMCV Auto (RBC) [Entitic vol]Ordered By: Maricruz Godoy on 03-14-2024 MCV (RBC) [Entitic vol]89.3 fL83.5-101[facility] HospitalMCV (RBC) [Entitic vol]MCV [Entitic volume] by Automated count83.5-101[facility] HospitalMagnesium [Mass/volume] in Serum or PlasmaOrdered By: Maricruz Godoy on 00-86-4357Wdpyphifb [Mass/Vol]1.8 mg/dLLow1.9-2.7FDetwiler Memorial HospitalMagnesium [Mass/Vol]Magnesium [Mass/volume] in Serum or PlasmaLow1.9-2.7 [facility] HospitalMonocytes Auto (Bld) [#/Vol]Ordered By: Maricruz Godoy on 69-03-0400Bkpdfwrtz (Bld) [#/Vol]0.9 10*3/uLHigh0.0-0.8[facility] HospitalMonocytes (Bld) [#/Vol]Automated blood monocyte countHigh 0.0-0.8[facility] HospitalMonocytes/100 WBC Auto (Bld)Ordered By: Maricruz Godoy on 65-29-1594Tmeorkkrq/100 WBC (Bld)11.6 %.[facility] HospitalMonocytes/100 WBC (Bld)Automated monocyte %.[facility] HospitalMucus [Presence] in Urine by AutomatedOrdered By: Maricruz Godoy on 96-91-8569Iswkn Auto Ql (U)Rare [LPF][facility] HospitalMucus Auto Ql (U)Mucus [Presence] in Urine by AutomatedMiddletown Hospital Neutrophils Auto (Bld) [#/Vol]Ordered By: Maricruz Godoy on 16-76-3176Dtmhfaeynkf (Bld) [#/Vol]6.0 10*3/uL1.8-7.7FDetwiler Memorial HospitalNeutrophils (Bld) [#/Vol]Neutrophils [#/volume] in Blood by Automated count1.8-7.7FDetwiler Memorial HospitalNeutrophils/100 WBC Auto (Bld)Ordered By: Maricruz Godoy on 04-80-3612Ryopgcgarzc/100 WBC (Bld)76.4 %.[facility] Neutrophils/100 WBC (Bld)Automated neutrophil %.[facility] HospitalNitrite Test strip Ql (U)Ordered By: Maricruz Godoy on 93-25-1514Gvzfphe Ql (U)NegativeNegMagruder HospitalNitrite Ql (U)Nitrite [Presence] in Urine by Test stripNegMagruder Hospital Nucleated erythrocytes [Presence] in Blood by Automated countOrdered By: Maricruz Godoy on 18-04-2991Qwjqoaguq RBC Auto Ql (Bld)0.1 /100{WBC}0-0.5FDetwiler Memorial HospitalNucleated RBC Auto Ql (Bld)Nucleated erythrocytes [Presence] in Blood by Automated count0-0.5FDetwiler Memorial Hospital Platelet mean volume Auto (Bld) [Entitic vol]Ordered By: Maricruz Godoy on 18-92-8793Sccjhwho mean volume (Bld) [Entitic vol]8.0 fL6.6-10.1FDetwiler Memorial HospitalPlatelet mean volume (Bld) [Entitic vol]Platelet mean volume [Entitic volume] in Blood by Automated count6.6-10.1FDetwiler Memorial HospitalPlatelets Auto (Bld) [#/Vol]Ordered By: Maricruz Godoy on 03-14-2024 Platelets (Bld) [#/Vol]290 10*3/aY261-494LwsrkctodMiddletown Hospital Platelets (Bld) [#/Vol]Platelets [#/volume] in Blood by Automated aqlip095-320 [facility] HospitalProtein Test strip (U) [Mass/Vol]Ordered By: Maricruz Godoy on 91-43-8961Ytxzkqr (U) [Mass/Vol]70 mg/dLHighNegMagruder HospitalProtein (U) [Mass/Vol]Protein [Mass/volume] in Urine by Test stripHighNegMagruder HospitalRBC Auto (Bld) [#/Vol] Ordered By: Maricruz Godoy on 60-73-5583INJ (Bld) [#/Vol]3.79 10*6/uLLow3.90-5.60 [facility] HospitalRBC (Bld) [#/Vol]Erythrocytes [#/volume] in Blood by Automated countLow3.90-5.60[facility] Medical Centerpecific gravity Test strip (U) [Rel density]Ordered By: Maricruz Godoy on 03-14-2024 Specific gravity (U) [Rel density]1.674Tdzl7.001-1.030[facility] Medical Centerpecific gravity (U) [Rel density]Specific gravity of Urine by Test strip High1.001-1.030[facility] HospitalUrine appearanceOrdered By: Maricruz Godoy on 57-33-5771Uaiphlnivg (U)ClearClearFDetwiler Memorial HospitalUrine cultureOrdered By: Maricruz Godoy on 17-44-0393Kcoofaoe identified Cx Nom (U)Group B Strep (Streptococcus agalactiae)AbnormalMiddletown HospitalUrobilinogen Test strip (U) [Mass/Vol]Ordered By: Maricruz Godoy on 78-48-3356Inparlxmtexu (U) [Mass/Vol]Normal mg/dLNormSelect Medical Cleveland Clinic Rehabilitation Hospital, AvonUrobilinogen (U) [Mass/Vol]Urobilinogen [Mass/volume] in Urine by Test stripNormSelect Medical [facility] Clinic [facility] Hospital, AvonWBC Auto (Bld) [#/Vol]Ordered By: Maricruz Godoy on 31-82-3141NLN (Bld) [#/Vol]7.8 10*3/uL4.1-10.5FDetwiler Memorial HospitalWBC (Bld) [#/Vol]Leukocytes [#/volume] in Blood by Automated count4.1-10.5FDetwiler Memorial HospitalpH Test strip (U)Ordered By: Maricruz Godoy on 98-40-6242gA (U)5.5 [pH]5.0-9.0[facility] HospitalpH (U)pH of Urine by Test strip5.0-9.0[facility] Basophils Auto (Bld) [#/Vol]on 78-04-2209Feyaxixhy (Bld) [#/Vol]0.0 10 3/uL 0.0-0.1FDetwiler Memorial HospitalBasophils (Bld) [#/Vol]Automated basophil count0.0-0.1FDetwiler Memorial HospitalBasophils/100 WBC Auto (Bld)on 67-90-5288Wgjfbwlkm/100 WBC (Bld)0.5 %0.2-2.0[facility] HospitalBasophils/100 WBC (Bld)Automated basophil %0.2-2.0[facility] HospitalBuprenorphine [Presence] in Urineon 26-99-2532Urwioiqlxycwd Ql (U) NegativeNEGATIVEMiddletown HospitalComment on above:DRUG CLASS TEST SYSTEM CUT-OFF CONCENTRATIONS ARE ASFOLLOWS:AMP (Amphetamine): 500 ng/mLBAR (Barbiturates): 200 ng/mLBZO (Benzodiazepines): 150 ng/mLBUP (Buprenorphine): 10 ng/mLCOC (Cocaine): 150 ng/mLmAMP (Methamphetamine): 500 ng/mLMTD (Methadone): 200 ng/mLOPI (Opiates): 100 ng/mLOXY (Oxycodone): 100 ng/mLPCP (Phencyclidine): 25 ng/mLTHC (Cannabinoids): 50 ng/mLTCA (Trycyclic Antidepressants): 300 ng/mLBuprenorphine Ql (U)Buprenorphine [Presence] in Urine NEGATIVEMiddletown HospitalComment on above:DRUG CLASS TEST SYSTEM CUT-OFF CONCENTRATIONS ARE ASFOLLOWS:AMP (Amphetamine): 500 ng/mLBAR (Barbitu rates): 200 ng/mLBZO (Benzodiazepines): 150 ng/mLBUP (Buprenorphine): 10 ng/mLCOC (Cocaine): 150 ng/mLmAMP (Methamphetamine): 500 ng/mLMTD (Methadone): 200 ng/mLOPI (Opiates): 100 ng/mLOXY (Oxycodone): 100 ng/mLPCP (Phencyclidine): 25 ng/mLTHC (Cannabinoids): 50 ng/mLTCA (Trycyclic Antidepressants): 300 ng/mL Eosinophils/100 WBC Auto (Bld)on 38-82-1749Vsukjwczznt/100 WBC (Bld)1.3 %0.9-7.0 [facility] HospitalEosinophils/100 WBC (Bld)Automated eosinophil % 0.9-7.0[facility] HospitalErythrocyte distribution width Auto (RBC) [Ratio]on 84-19-9838Pjslbbnycuy distribution width (RBC) [Ratio]12.8 % 11.0-15.0[facility] HospitalErythrocyte distribution width (RBC) [Ratio]Erythrocyte distribution width [Ratio] by Automated count11.0-15.0 [facility] HospitalEstimated glomerular filtration rate (GFR) non- Americanon 84-24-0911NBR/1.73 sq M.predicted among non-blacks MDRD (S/P/Bld) [Vol rate/Area]mL/min/{1.73_m2}>=60 mL/min/1.73m 2FDetwiler Memorial HospitalGFR/1.73 sq M.predicted among non-blacks MDRD (S/P/Bld) [Vol rate/Area]Estimated glomerular filtration rate (GFR) non->=60 mL/min/1.[address]m [address] [place], [place] [address]Globulin Calc (S) [Mass/Vol]on 40-45-1465Mmiswibq (S) [Mass/Vol]3.6 g/dLMiddletown Hospital Globulin (S) [Mass/Vol]Serum globulin measurement by calculation (mass/volume) [facility] HospitalHematocrit Auto (Bld) [Volume fraction]on 82-37-0330Ihnaxbtlyo (Bld) [Volume fraction]33.4 %Low42.0-54.0[facility] HospitalHematocrit (Bld) [Volume fraction]Hematocrit [Volume Fraction] of Blood by Automated yamqwFng92.0-54.0[facility] HospitalHemoglobin [Mass/volume] in Bloodon 47-96-8888Itquyghsae (Bld) [Mass/Vol]11.1 g/dLLow 14.0-18.0[facility] HospitalHemoglobin (Bld) [Mass/Vol]Hemoglobin [Mass/volume] in ZhxxmYtu69.0-18.0[facility] HospitalINR in Platelet poor plasma by Coagulation assayon 09-10-5351EBK Coag (PPP) [Relative time]1.07 {INR}[facility] HospitalComment on above:DESIRED INR:2.0-3.0 CONDITIONS NOT LISTED BELOW2.5-3.5 FOR PROSTHETIC HEART VALVE REPLACEMENT2.5-3.5 RECURRENT THROMBOSISINR Coag (PPP) [Relative time]INR in Platelet poor plasma by Coagulation assayMiddletown Hospital Comment on above:DESIRED INR:2.0-3.0 CONDITIONS NOT LISTED BELOW2.5-3.5 FOR PROSTHETIC HEART VALVE REPLACEMENT2.5-3.5 RECURRENT THROMBOSISLaboratory - Chemistry and Chemistry - challengeon 31-44-8618Mbraial (P) [Moles/Vol]20 umol/L 11-32M[facility] HospitalAlbumin [Mass/Vol]2.9 g/dLLow3.4-5.0 [facility] HospitalALP [Catalytic activity/Vol]85 U/L46-116 [facility] HospitalALT [Catalytic activity/Vol]17 U/L16-63 [facility] HospitalAST [Catalytic activity/Vol]17 U/L15-37 [facility] HospitalBilirubin [Mass/Vol]0.6 mg/dL0.2-1.0[facility] HospitalCalcium [Mass/Vol]8.7 mg/dL8.5-10.1FDetwiler Memorial HospitalChloride [Moles/Vol]101 mmol/D62-228ZjnhrptdgMiddletown HospitalCO2 [Moles/Vol]27.1 mmol/L21.0-32.0[facility] Creatinine [Mass/Vol]0.94 mg/dL0.70-1.30[facility] GFR/1.73 sq M.predicted MDRD (S/P/Bld) [Vol rate/Area]mL/min/{1.73_m2}>=60 mL/min/1.73m 2FDetwiler Memorial HospitalGlucose [Mass/Vol]91 mg/pN60-669 [facility] HospitalLipase [Catalytic activity/Vol]29.0 U/L 16.0-77.0[facility] HospitalMagnesium [Mass/Vol]1.5 mg/dLLow 1.8-2.4FDetwiler Memorial HospitalPotassium [Moles/Vol]3.6 mmol/L3.5-5.1 [facility] HospitalProtein [Mass/Vol]6.5 g/dL6.4-8.2FSt. Rita's Hospitalodium [Moles/Vol]137 mmol/A684-369MjhqrpmvyMiddletown HospitalUrea nitrogen [Mass/Vol]17.0 mg/dL7.0-18.0[facility] HospitalUrea nitrogen/Creatinine [Mass ratio]18.1 mg/mgMiddletown HospitalLaboratory - Drug toxicologyon 51-33-2743Hdrwgqoctqbi Ql (U) NegativeNEGATIVEMiddletown HospitalBenzodiazepines Ql (U)Negative NEGATIVEMiddletown HospitalCocaine Ql (U)NegativeNEGATIVEMiddletown HospitalOpiates Ql (U)PositiveAbnormalNEGATIVEMiddletown HospitalPhencyclidine Ql (U)NegativeNEGATIVEMiddletown HospitalLaboratory - Hematology and Cell countson 74-94-4583Rsnkhkuf granulocytes/100 WBC (Bld)0.6 %High0.0-0.5FDetwiler Memorial Hospital Leukocytes [#/volume] corrected for nucleated erythrocytes in Blood by Automated counon 85-84-4165CGC corrected for nucl RBC Auto (Bld) [#/Vol]8.7 10 3/uL 4.0-11.0[facility] HospitalWBC corrected for nucl RBC Auto (Bld) [#/Vol]Leukocytes [#/volume] corrected for nucleated erythrocytes in Blood by Automated coun4.0-11.0[facility] HospitalLymphocytes Auto (Bld) [#/Vol]on 68-74-9166Ambmcdwczbb (Bld) [#/Vol]0.8 10 3/uLLow1.2-3.8[facility] HospitalLymphocytes (Bld) [#/Vol]Lymphocytes [#/volume] in Blood by Automated countLow1.2-3.8[facility] HospitalLymphocytes/100 WBC Auto (Bld)on 47-60-1727Dltgtcdamvv/100 WBC (Bld)8.8 %Low20.5-60.0[facility] HospitalLymphocytes/100 WBC (Bld)Lymphocytes/100 leukocytes in Blood by Automated uuexgZzc80.5-60.0[facility] Auto (RBC) [Entitic mass]on 65-18-8043QUC (RBC) [Entitic mass]29.5 pg25.9-34.0 [facility] (RBC) [Entitic mass]MCH [Entitic mass] by Automated count25.9-34.0[facility] Auto (RBC) [Mass/Vol]on 22-38-8037LSVP (RBC) [Mass/Vol]33.2 g/dL29.9-35.2FRegional Medical CenterHC (RBC) [Mass/Vol]MCHC [Mass/volume] by Automated count 29.9-35.2FDetwiler Memorial HospitalMCV Auto (RBC) [Entitic vol]on 81-59-1680GGG (RBC) [Entitic vol]88.8 fL80.0-94.0[facility] HospitalV (RBC) [Entitic vol]MCV [Entitic volume] by Automated count80.0-94.0 [facility] HospitalMethadone [Presence] in Urine by Screen method on 57-44-4875Kcniybbgb Screen Ql (U)NegativeNEGATIVEMiddletown HospitalMethadone Screen Ql (U)Methadone [Presence] in Urine by Screen method NEGATIVEMiddletown HospitalMonocytes Auto (Bld) [#/Vol]on 32-30-2644Fstebbwhj (Bld) [#/Vol]1.1 10 3/uLHigh0.3-0.8[facility] HospitalMonocytes (Bld) [#/Vol]Automated blood monocyte countHigh0.3-0.8 [facility] HospitalMonocytes/100 WBC Auto (Bld)on 03-13-2024 Monocytes/100 WBC (Bld)12.5 %High1.7-12.0[facility] Monocytes/100 WBC (Bld)Automated monocyte %High1.7-12.0[facility] HospitalNeutrophils Auto (Bld) [#/Vol]on 15-13-6734Kjfwkjbllnp (Bld) [#/Vol]6.6 10 3/uLHigh1.4-6.5FDetwiler Memorial HospitalNeutrophils (Bld) [#/Vol]Neutrophils [#/volume] in Blood by Automated countHigh1.4-6.5FDetwiler Memorial HospitalNeutrophils/100 WBC Auto (Bld)on 03-13-2024 Neutrophils/100 WBC (Bld)76.3 %High43.0-75.0[facility] Neutrophils/100 WBC (Bld)Automated neutrophil %High43.0-75.0[facility] HospitalNo Panel Informationon 36-58-6157Rovdz Barbiturates ScreenNegative NEGATIVEMiddletown HospitalUrine Marijuana (THC) ScreenNegative NEGATIVEMiddletown HospitalUrine Methamphetamines ScreenNegative NEGATIVEMiddletown HospitalEosinophils # (Auto)0.1 10 3/uL0.0-0.7 [facility] HospitalEthyl Alcohol Level<3 mg/dLMiddletown HospitalComment on above:NOTE: 80 mg/dl is the legal limit for a blood alcohol levelImmature Granulocyte # (Auto)0.05 10 3/uLHigh0.00-0.03[facility] HospitalTroponin I High Sensitivity8.8 pg/mL4.0-76.1FDetwiler Memorial HospitalComment on above:CUT-OFF POINTS HAVE BEEN ESTABLISHED BASED [...] INFORMATION.Platelet mean volume Auto (Bld) [Entitic vol]on 45-92-7758Xhtlgauc mean volume (Bld) [Entitic vol]9.5 fL9.5-13.5FDetwiler Memorial HospitalPlatelet mean volume (Bld) [Entitic vol]Platelet mean volume [Entitic volume] in Blood by Automated count 9.5-13.5FDetwiler Memorial HospitalPlatelets Auto (Bld) [#/Vol]on 77-41-6824Nebtclzoy (Bld) [#/Vol]300 10 3/lA782-105DszmlufzgMiddletown HospitalPlatelets (Bld) [#/Vol]Platelets [#/volume] in Blood by Automated count 150-450M[facility] HospitalProthrombin time (PT)on 04-83-2504BC Coag (PPP) [Time]11.3 s9.0-11.6FDetwiler Memorial HospitalPT Coag (PPP) [Time]Prothrombin time (PT)9.0-11.6FDetwiler Memorial HospitalRBC Auto (Bld) [#/Vol]on 82-74-7322GBM (Bld) [#/Vol]3.76 10 6/uLLow4.70-6.10[facility] HospitalRBC (Bld) [#/Vol]Erythrocytes [#/volume] in Blood by Automated countLow4.70-6.10[facility] Medical Centererum or plasma albumin/globulin mass ratioon 61-90-3524Avokwqi/Globulin [Mass ratio]0.8 {ratio} [facility] HospitalAlbumin/Globulin [Mass ratio]Serum or plasma albumin/globulin mass ratioMercy Health St. Rita's Medical Centererum or plasma anion gap determinationon 56-69-1848Ydwxy gap [Moles/Vol]12.5 mmol/LFDetwiler Memorial HospitalAnion gap [Moles/Vol]Serum or plasma anion gap determinationMiddletown HospitalUrine tricyclic antidepressant measurementon 77-37-1456Ufcncrxrz antidepressants (U) [Mass/Vol]NegativeNEGATIVE [facility] HospitalTricyclic antidepressants (U) [Mass/Vol]Urine tricyclic antidepressant measurementNEGATIVEMiddletown Hospital oxyCODONE+oxyMORphone [Presence] in Urine by Screen methodon 03-13-2024 oxyCODONE+oxyMORphone Screen Ql (U)NegativeNEGATIVEMiddletown HospitaloxyCODONE+oxyMORphone Screen Ql (U)oxyCODONE+oxyMORphone [Presence] in Urine by Screen methodNEGATIVEMiddletown HospitalBasophils Auto (Bld) [#/Vol]on 47-98-5333Ekcgupcwe (Bld) [#/Vol]0.0 10 3/uL0.0-0.1FDetwiler Memorial HospitalBasophils (Bld) [#/Vol]Automated basophil count0.0-0.1 [facility] HospitalBasophils/100 WBC Auto (Bld)on 03-06-2024 Basophils/100 WBC (Bld)0.3 %0.2-2.0[facility] Basophils/100 WBC (Bld)Automated basophil %0.2-2.0[facility] HospitalEosinophils/100 WBC Auto (Bld)on 37-41-2009Hjuxdsrenvi/100 WBC (Bld)1.7 % 0.9-7.0[facility] HospitalEosinophils/100 WBC (Bld)Automated eosinophil %0.9-7.0[facility] HospitalErythrocyte distribution width Auto (RBC) [Ratio]on 33-03-3908Jafaxrksqvr distribution width (RBC) [Ratio]12.8 %11.0-15.0[facility] HospitalErythrocyte distribution width (RBC) [Ratio]Erythrocyte distribution width [Ratio] by Automated count 11.0-15.0[facility] HospitalEstimated glomerular filtration rate (GFR) non- Americanon 17-11-1628QWK/1.73 sq M.predicted among non-blacks MDRD (S/P/Bld) [Vol rate/Area]mL/min/{1.73_m2}>=60 mL/min/1.[address]m [address] [place], [place] [address]GFR/1.73 sq M.predicted among non-blacks MDRD (S/P/Bld) [Vol rate/Area]Estimated glomerular filtration rate (GFR) non- >=60 mL/min/1.[address]m [address] [place], [place] [address]Fibrin D-dimer [Presence] in Platelet poor plasma by Latex agglutinationon 64-02-9860Zevflp D-dimer LA Ql (PPP)0.33 mg/L FEU<=0.59[facility] HospitalComment on above: Increases in D-Dimer concentration observed [...] [Presence] in Platelet poor plasma by Latex agglutination<=0.59[facility] HospitalComment on above: Increases in D-Dimer concentration observed [...] and generalizedhospitalization. Hematocrit Auto (Bld) [Volume fraction]on 70-14-9162Rdzaegdlyk (Bld) [Volume fraction]35.6 %Low42.0-54.0[facility] HospitalHematocrit (Bld) [Volume fraction]Hematocrit [Volume Fraction] of Blood by Automated countLow 42.0-54.0[facility] HospitalHemoglobin [Mass/volume] in Bloodon 70-95-2143Idncmuxnqj (Bld) [Mass/Vol]11.7 g/dLLow14.0-18.0[facility] HospitalHemoglobin (Bld) [Mass/Vol]Hemoglobin [Mass/volume] in BloodLow 14.0-18.0[facility] HospitalLaboratory - Chemistry and Chemistry - challengeon 40-49-9547Rhoirof [Mass/Vol]9.4 mg/dL8.5-10.1FDetwiler Memorial HospitalChloride [Moles/Vol]97 mmol/BBca50-776QiirojlgeMiddletown HospitalCO2 [Moles/Vol]29.5 mmol/L21.0-32.0[facility] Creatinine [Mass/Vol]1.07 mg/dL0.70-1.30[facility] GFR/1.73 sq M.predicted MDRD (S/P/Bld) [Vol rate/Area]mL/min/{1.73_m2}>=60 mL/min/1.73m 2FDetwiler Memorial HospitalGlucose [Mass/Vol]99 mg/pU95-406 [facility] HospitalPotassium [Moles/Vol]4.4 mmol/L3.5-5.1FSt. Rita's Hospitalodium [Moles/Vol]135 mmol/HPcc057-677KjoifaolnMiddletown HospitalUrea nitrogen [Mass/Vol]13.0 mg/dL7.0-18.0[facility] HospitalUrea nitrogen/Creatinine [Mass ratio]12.1 mg/mgMiddletown HospitalLaboratory - Hematology and Cell countson 68-01-3356Lynnwrzk granulocytes/100 WBC (Bld)0.7 %High0.0-0.5FDetwiler Memorial Hospital Laboratory - Microbiology and Antimicrobial susceptibilityon 03-06-2024 SARS-CoV-2 (COVID-19) RNA HOWIE+probe Ql (Unsp spec)NegativeNEGATIVEMiddletown HospitalComment on above:This test has not been FDA [...] nucleated erythrocytes in Blood by Automated counon 48-78-6207AVX corrected for nucl RBC Auto (Bld) [#/Vol]8.9 10 3/uL4.0-11.0 [facility] HospitalWBC corrected for nucl RBC Auto (Bld) [#/Vol] Leukocytes [#/volume] corrected for nucleated erythrocytes in Blood by Automated coun4.0-11.0[facility] HospitalLymphocytes Auto (Bld) [#/Vol]on 80-74-1446Rlskxbwoxkp (Bld) [#/Vol]0.8 10 3/uLLow1.2-3.8[facility] HospitalLymphocytes (Bld) [#/Vol]Lymphocytes [#/volume] in Blood by Automated countLow1.2-3.8[facility] HospitalLymphocytes/100 WBC Auto (Bld)on 88-21-8600Yedxzibxpyb/100 WBC (Bld)8.9 %Low20.5-60.0[facility] HospitalLymphocytes/100 WBC (Bld)Lymphocytes/100 leukocytes in Blood by Automated iancvFau26.5-60.0[facility] HospitalH Auto (RBC) [Entitic mass]on 11-77-1314ALI (RBC) [Entitic mass]29.8 pg25.9-34.0 [facility] HospitalH (RBC) [Entitic mass]MCH [Entitic mass] by Automated count25.9-34.0[facility] HospitalHC Auto (RBC) [Mass/Vol]on 23-02-2098JMTD (RBC) [Mass/Vol]32.9 g/dL29.9-35.2FRegional Medical CenterHC (RBC) [Mass/Vol]MCHC [Mass/volume] by Automated count 29.9-35.2FDetwiler Memorial HospitalMCV Auto (RBC) [Entitic vol]on 84-40-4668GNA (RBC) [Entitic vol]90.6 fL80.0-94.0[facility] HospitalV (RBC) [Entitic vol]MCV [Entitic volume] by Automated count80.0-94.0 [facility] HospitalMonocytes Auto (Bld) [#/Vol]on 03-06-2024 Monocytes (Bld) [#/Vol]1.1 10 3/uLHigh0.3-0.8[facility] Monocytes (Bld) [#/Vol]Automated blood monocyte countHigh0.3-0.8[facility] HospitalMonocytes/100 WBC Auto (Bld)on 11-50-4554Bxgqqufmh/100 WBC (Bld)12.8 %High1.7-12.0[facility] HospitalMonocytes/100 WBC (Bld)Automated monocyte %High1.7-12.0[facility] Neutrophils Auto (Bld) [#/Vol]on 70-58-1870Ussxldbxsxv (Bld) [#/Vol]6.7 10 3/uL High1.4-6.5FDetwiler Memorial HospitalNeutrophils (Bld) [#/Vol]Neutrophils [#/volume] in Blood by Automated countHigh1.4-6.5FDetwiler Memorial HospitalNeutrophils/100 WBC Auto (Bld)on 03-70-9314Oshfyyvyyuu/100 WBC (Bld)75.6 % High43.0-75.0[facility] HospitalNeutrophils/100 WBC (Bld)Automated neutrophil %High43.0-75.0[facility] HospitalNo Panel Information on 55-65-6274Wlosqrb Influenza Type A AntigenNegativeMiddletown HospitalComment on above:Negative for Flu A protein antigen. Infection due to Flu Acannot be ruled out. Flu A antigen in thesample may bebelow the detection limit of the test.Bedside Influenza Type B AntigenNegativeMiddletown HospitalComment on above:Negative for Flu B protein antigen. Infection due to Flu Bcannot be ruled out. Flu B antigen in thesample may bebelow the detection limit of the test.Eosinophils # (Auto)0.2 10 3/uL0.0-0.7FDetwiler Memorial HospitalImmature Granulocyte # (Auto)0.06 10 3/uLHigh0.00-0.03[facility] HospitalTroponin I High Sensitivity5.0 pg/mL4.0-76.1FDetwiler Memorial HospitalComment on above:CUT-OFF POINTS HAVE BEEN ESTABLISHED BASED [...] INFORMATION.Platelet mean volume Auto (Bld) [Entitic vol]on 72-83-5034Sqjeinyd mean volume (Bld) [Entitic vol]9.5 fL9.5-13.5FDetwiler Memorial HospitalPlatelet mean volume (Bld) [Entitic vol]Platelet mean volume [Entitic volume] in Blood by Automated count9.5-13.5 [facility] HospitalPlatelets Auto (Bld) [#/Vol]on 03-06-2024 Platelets (Bld) [#/Vol]314 10 3/fT826-474JyhfzlmwcMiddletown Hospital Platelets (Bld) [#/Vol]Platelets [#/volume] in Blood by Automated -870 [facility] HospitalRBC Auto (Bld) [#/Vol]on 12-25-9791VBA (Bld) [#/Vol]3.93 10 6/uLLow4.70-6.10[facility] HospitalRBC (Bld) [#/Vol]Erythrocytes [#/volume] in Blood by Automated countLow4.70-6.10[facility] Medical Centererum or plasma anion gap determinationon 27-85-7105Duzsx gap [Moles/Vol]12.9 mmol/LFDetwiler Memorial HospitalAnion gap [Moles/Vol]Serum or plasma anion gap determinationMiddletown HospitalCarbon dioxide, total [Moles/volume] in Serum or PlasmaOrdered By: Shannon Gonzalez on 64-90-7547PA4 [Moles/Vol]30.2 mmol/L21.0-31.0[facility] HospitalCO2 [Moles/Vol]Carbon dioxide, total [Moles/volume] in Serum or Xbygph67.0-31.0[facility] HospitalChloride [Moles/volume] in Serum or PlasmaOrdered By: Shannon Gonzalez on 27-66-5351Adpwpgsc [Moles/Vol]92 mmol/L Quu32-619YyilwaiocMiddletown HospitalChloride [Moles/Vol]Chloride [Moles/volume] in Serum or JsncopRip49-782ZgwzpclnmMiddletown Hospital Potassium [Moles/volume] in Serum or PlasmaOrdered By: Shannon Gonzalez on 79-66-4680Sxvvkaaoq [Moles/Vol]3.9 mmol/L3.5-5.1FDetwiler Memorial HospitalComment on above:Hemolysis is present at a level that could interfere with the result.Contact lab if redraw is requiredPotassium [Moles/Vol]Potassium [Moles/volume] in Serum or Plasma3.5-5.1FDetwiler Memorial HospitalComment on above:Hemolysis is present at a level that could interfere with the result.Contact lab if redraw is requiredSerum or plasma anion gap determination Ordered By: Shannon Gonzalez on 46-67-7893Esztc gap [Moles/Vol]11.7 mmol/L6.0-15.0 [facility] HospitalAnion gap [Moles/Vol]Serum or plasma anion gap determination6.0-15.0[facility] Medical Centerodium [Moles/volume] in Serum or PlasmaOrdered By: Shannon Gonzalez on 22-47-5004Bivabp [Moles/Vol]130 mmol/TCbu928-780IqswnqclbMercy Health St. Rita's Medical Centerodium [Moles/Vol]Sodium [Moles/volume] in Serum or RhrvycKel071-569EmmxzzqweMiddletown Hospital Calcium [Mass/volume] in Serum or PlasmaOrdered By: Maricruz Godoy on 02-29-2024 Calcium [Mass/Vol]8.6 mg/dL8.6-10.3FDetwiler Memorial HospitalCalcium [Mass/Vol]Calcium [Mass/volume] in Serum or Plasma8.6-10.3FDetwiler Memorial HospitalCreatinine [Mass/volume] in Serum or PlasmaOrdered By: Maricruz Godoy on 50-86-4540Kdrdcndcgi [Mass/Vol]0.69 mg/dLLow0.70-1.30[facility] HospitalCreatinine [Mass/Vol]Creatinine [Mass/volume] in Serum or Plasma Low0.70-1.30[facility] HospitalGlucose [Mass/volume] in Serum or PlasmaOrdered By: Maricruz Godoy on 73-89-4372Lhwfrgn [Mass/Vol]86 mg/gN62-851 [facility] HospitalComment on above:ADA recommended reference rangeRandom Glucose Reference Range is dependent on time and content of last meal. Glucose of more than 200 mg/dL in a nonstressed, ambulatory subject supports the diagnosisof Diabetes Mellitus.Glucose [Mass/Vol]Glucose [Mass/volume] in Serum or Usvzsm38-650KccjhwlwgMiddletown HospitalComment on above:ADA recommended reference rangeRandom Glucose Reference Range is dependent on time and content of last meal. Glucose of more than 200 mg/dL in a nonstressed, ambulatory subject supports the diagnosisof Diabetes Mellitus. Magnesium [Mass/volume] in Serum or PlasmaOrdered By: Maricruz Godoy on 02-29-2024 Magnesium [Mass/Vol]1.5 mg/dLLow1.9-2.7FDetwiler Memorial Hospital Magnesium [Mass/Vol]Magnesium [Mass/volume] in Serum or PlasmaLow1.9-2.7 [facility] HospitalNo Panel InformationOrdered By: Maricruz Godoy on 96-45-3435Ioqymhmvo GFR (CKD-EPI)> 60.0 mL/MinMiddletown Hospital Pharmacy Creatinine Clearance (Chem95.65[facility] HospitalUrea nitrogen [Mass/volume] in Serum or PlasmaOrdered By: Maricruz Godoy on 02-29-2024 Urea nitrogen [Mass/Vol]11 mg/dL12-06[facility] HospitalUrea nitrogen [Mass/Vol]Urea nitrogen [Mass/volume] in Serum or Plasma12-06[facility] HospitalActivated partial thromboplastin time (aPTT) in platelet poor plasma by coagulation aOrdered By: Sin Mabry on 21-14-8126xNMP Coag (PPP) [Time]42.4 sHigh25.1-36.5FDetwiler Memorial HospitalComment on above:A hematocrit value greater than 55% may lead to inaccurate results in coagulation testing. Patientshaving hematocrit values >55% require a special collection tube for coagulation studies. Please contact the laboratory at [phone] for redraw instructions.Alanine aminotransferase [Enzymatic activity/volume] in Serum or PlasmaOrdered By: Sin Mabry on 51-64-9949KCX [Catalytic activity/Vol] 10 U/LMiddletown HospitalALT [Catalytic activity/Vol]Alanine aminotransferase [Enzymatic activity/volume] in Serum or PlasmaMiddletown HospitalAlbumin [Mass/volume] in Serum or Plasma by Bromocresol green (BCG) dye binding methoOrdered By: Sni Mabry on 59-19-4119Nbrnheq BCG dye [Mass/Vol]3.7 g/dL3.5-5.7Fire[facility] CenterAlbumin BCG dye [Mass/Vol]Albumin [Mass/volume] in Serum or Plasma by Bromocresol green (BCG) dye binding metho3.5-5.7FDetwiler Memorial HospitalAlkaline phosphatase [Enzymatic activity/volume] in Serum or PlasmaOrdered By: Sin Mabry on 20-30-4762RPW [Catalytic activity/Vol]71 U/H33-554VcixdkyggMiddletown HospitalALP [Catalytic activity/Vol]Alkaline phosphatase [Enzymatic activity/volume] in Serum or Plufrx68-537CixsiwjgfMiddletown Hospital Aspartate aminotransferase [Enzymatic activity/volume] in Serum or PlasmaOrdered By: Sin Mabry on 29-87-2654VCJ [Catalytic activity/Vol]14 U/Q72-62TyorgjbbmMiddletown HospitalAST [Catalytic activity/Vol]Aspartate aminotransferase [Enzymatic activity/volume] in Serum or Meinty89-14NxiruqlxzMiddletown HospitalBasophils Auto (Bld) [#/Vol]Ordered By: Sin Mabry on 07-56-5920Ddeuspdvz (Bld) [#/Vol]0.0 10*3/uL0.0-0.2FDetwiler Memorial HospitalBasophils (Bld) [#/Vol]Automated basophil count0.0-0.2FDetwiler Memorial Hospital Basophils/100 WBC Auto (Bld)Ordered By: Sin Mabry on 27-73-3491Cfhmohknm/100 WBC (Bld)0.4 %.[facility] HospitalBasophils/100 WBC (Bld)Automated basophil %.[facility] HospitalBilirubin.direct [Mass/volume] in Serum or PlasmaOrdered By: Sin Mabry on 48-25-0455Echrsbjvq.direct [Mass/Vol] 0.20 mg/dLHigh0.03-0.18FDetwiler Memorial HospitalBilirubin.direct [Mass/Vol]Bilirubin.direct [Mass/volume] in Serum or PlasmaHigh0.03-0.18 [facility] HospitalBilirubin.total [Mass/volume] in Serum or PlasmaOrdered By: Sin Mabry on 64-29-2935Yetpzzoao [Mass/Vol]0.5 mg/dL0.3-1.0 [facility] HospitalBilirubin [Mass/Vol]Bilirubin.total [Mass/volume] in Serum or Plasma0.3-1.0[facility] HospitalCalcium [Mass/volume] in Serum or PlasmaOrdered By: Sin Mabry on 31-63-1471Bhduius [Mass/Vol]9.0 mg/dL8.6-10.3FDetwiler Memorial HospitalCarbon dioxide, total [Moles/volume] in Serum or PlasmaOrdered By: Sin Mabry on 32-27-2740MC9 [Moles/Vol]25.1 mmol/L21.0-31.0[facility] HospitalChloride [Moles/volume] in Serum or PlasmaOrdered By: Sin Mabry on 39-90-6558Kobofjzu [Moles/Vol]96 mmol/DMoi29-770PjvikomiiMiddletown HospitalCreatine kinase [Enzymatic activity/volume] in Serum or PlasmaOrdered By: Sin Mabry on 57-08-2153YO [Catalytic activity/Vol]26 U/WXml70-748CulfajvofMiddletown HospitalCK [Catalytic activity/Vol]Creatine kinase [Enzymatic activity/volume] in Serum or IusljjGky68-509JlwedvzibMiddletown HospitalCreatinine [Mass/volume] in Serum or PlasmaOrdered By: Sin Mabry on 00-44-0371Pyyrujclnu [Mass/Vol]0.77 mg/dL0.70-1.30[facility] HospitalEosinophils Auto (Bld) [#/Vol]Ordered By: Sin Mabry on 14-47-3475Skvddwlmnhk (Bld) [#/Vol]0.1 10*3/uL0.0-0.45[facility] HospitalEosinophils (Bld) [#/Vol] Automated eosinophil count0.0-0.45[facility] Eosinophils/100 WBC Auto (Bld)Ordered By: Sin Mabry on 02-28-2024 Eosinophils/100 WBC (Bld)0.9 %.[facility] HospitalEosinophils/100 WBC (Bld)Automated eosinophil %.[facility] HospitalErythrocyte distribution width Auto (RBC) [Ratio]Ordered By: Sin Mabry on 02-28-2024 Erythrocyte distribution width (RBC) [Ratio]13.8 %12.0-14.8[facility] HospitalErythrocyte distribution width (RBC) [Ratio]Erythrocyte distribution width [Ratio] by Automated count12.0-14.8[facility] HospitalGlobulin Calc (S) [Mass/Vol]Ordered By: Sin Mabry on 20-91-7019Aykuzekl (S) [Mass/Vol]3.2 g/dLMiddletown HospitalGlobulin (S) [Mass/Vol] Serum globulin measurement by calculation (mass/volume)[facility] HospitalGlucose [Mass/volume] in Serum or PlasmaOrdered By: Sin Mabry on 65-47-4443Ugdnsmz [Mass/Vol]133 mg/oXQbvh06-790UfihehteaMiddletown HospitalComment on above:ADA recommended reference rangeRandom Glucose Reference Range is dependent on time and content of last meal. Glucose of more than 200 mg/dL in a nonstressed, ambulatory subject supports the diagnosisof Diabetes Mellitus.Hematocrit Auto (Bld) [Volume fraction]Ordered By: Sin Mabry on 12-58-6619Ehkukbhplz (Bld) [Volume fraction]36.7 %Low38.8-50.0[facility] HospitalHematocrit (Bld) [Volume fraction]Hematocrit [Volume Fraction] of Blood by Automated kvdqbLzy11.8-50.0[facility] HospitalHemoglobin [Mass/volume] in BloodOrdered By: Sin Mabry on 20-04-3929Fsttopftgn (Bld) [Mass/Vol]12.3 g/dLLow13.0-17.0[facility] HospitalHemoglobin (Bld) [Mass/Vol]Hemoglobin [Mass/volume] in BfigaLnk46.0-17.0[facility] HospitalINR in Platelet poor plasma by Coagulation assayOrdered By: Sin Mabry on 73-66-3254YWP Coag (PPP) [Relative time]2.0 {INR}[facility] HospitalComment on above:INR Therapeutic Range A) Pre- and [...] time]INR in Platelet poor plasma by Coagulation assayMiddletown Hospital Comment on above:INR Therapeutic Range A) Pre- [...] by Automated counOrdered By: Sin Mabry on 26-99-1339QJL corrected for nucl RBC Auto (Bld) [#/Vol]5.9 10*3/uL4.1-10.5FDetwiler Memorial Hospital WBC corrected for nucl RBC Auto (Bld) [#/Vol]Leukocytes [#/volume] corrected for nucleated erythrocytes in Blood by Automated coun4.1-10.5FDetwiler Memorial HospitalLymphocytes Auto (Bld) [#/Vol]Ordered By: Sin Mabry on 65-91-2924Qrhunkjmqmy (Bld) [#/Vol]0.6 10*3/uLLow1.00-4.8[facility] HospitalLymphocytes (Bld) [#/Vol]Lymphocytes [#/volume] in Blood by Automated countLow1.00-4.8[facility] HospitalLymphocytes/100 WBC Auto (Bld)Ordered By: Sin Mabry on 08-65-6635Cgcjacwkzfk/100 WBC (Bld)9.9 %. [facility] HospitalLymphocytes/100 WBC (Bld)Lymphocytes/100 leukocytes in Blood by Automated count.[facility] Auto (RBC) [Entitic mass]Ordered By: Sin Mabry on 70-37-5544WJA (RBC) [Entitic mass]30.2 pg27.5-35.2FCincinnati [facility] (RBC) [Entitic mass] MCH [Entitic mass] by Automated count27.5-35.2FDetwiler Memorial Hospital MCHC Auto (RBC) [Mass/Vol]Ordered By: Sin Mabry on 04-55-5422VTRQ (RBC) [Mass/Vol]33.7 g/dL32.5-35.6FDetwiler Memorial HospitalMCHC (RBC) [Mass/Vol]MCHC [Mass/volume] by Automated count32.5-35.6FDetwiler Memorial HospitalMCV Auto (RBC) [Entitic vol]Ordered By: Sin Mabry on 02-28-2024 MCV (RBC) [Entitic vol]89.6 fL83.5-101M[facility] HospitalMCV (RBC) [Entitic vol]MCV [Entitic volume] by Automated count83.5-101[facility] HospitalMonocyte distribution width [Entitic volume] in Blood by Automated Ordered By: Sin Mabry on 32-32-5079Vioqqvgt distribution width Auto (Bld) [Entitic vol]19.63 %0.00-20.00[facility] HospitalMonocyte distribution width Auto (Bld) [Entitic vol]Monocyte distribution width [Entitic volume] in Blood by Automated0.00-20.00[facility] Monocytes Auto (Bld) [#/Vol]Ordered By: Sin Mabry on 72-88-1428Mwkfgzgud (Bld) [#/Vol]0.6 10*3/uL0.0-0.8[facility] HospitalMonocytes (Bld) [#/Vol]Automated blood monocyte count0.0-0.8[facility] Monocytes/100 WBC Auto (Bld)Ordered By: Sin Mabry on 25-84-6046Innkfixhg/100 WBC (Bld)10.0 %.[facility] HospitalMonocytes/100 WBC (Bld) Automated monocyte %.[facility] HospitalNatriuretic peptide B [Mass/Vol]Ordered By: Sin Mabry on 90-35-2382Ubkakyaqoqz peptide B (Bld) [Mass/Vol]614.0 pg/mLHigh5-100M[facility] HospitalNatriuretic peptide B (Bld) [Mass/Vol]BNP ser/plasHigh5-100[facility] Neutrophils Auto (Bld) [#/Vol]Ordered By: Sin Mabry on 24-75-8614Xnxypazncwa (Bld) [#/Vol]4.6 10*3/uL1.8-7.7FDetwiler Memorial HospitalNeutrophils (Bld) [#/Vol]Neutrophils [#/volume] in Blood by Automated count1.8-7.7FDetwiler Memorial HospitalNeutrophils/100 WBC Auto (Bld)Ordered By: Sin Mabry on 72-28-2088Actnowjrbas/100 WBC (Bld)78.8 %.[facility] Neutrophils/100 WBC (Bld)Automated neutrophil %.[facility] HospitalNo Panel InformationOrdered By: Sin Mabry on 83-99-0956Qokbkrcxb GFR (CKD-EPI)> 60.0 mL/MinMiddletown HospitalPharmacy Creatinine Clearance (Chem95.65[facility] HospitalNucleated erythrocytes [Presence] in Blood by Automated countOrdered By: Sin Mabry on 02-28-2024 Nucleated RBC Auto Ql (Bld)0.1 /100{WBC}0-0.5FDetwiler Memorial Hospital Nucleated RBC Auto Ql (Bld)Nucleated erythrocytes [Presence] in Blood by Automated count0-0.5FDetwiler Memorial HospitalPlatelet mean volume Auto (Bld) [Entitic vol]Ordered By: Sin Mabry on 00-46-2186Gohlwskg mean volume (Bld) [Entitic vol]8.4 fL6.6-10.1FDetwiler Memorial HospitalPlatelet mean volume (Bld) [Entitic vol]Platelet mean volume [Entitic volume] in Blood by Automated count6.6-10.1FDetwiler Memorial HospitalPlatelets Auto (Bld) [#/Vol]Ordered By: Sin Mabry on 86-25-9634Pjkremcpk (Bld) [#/Vol]238 10*3/uL 150-450M[facility]own HospitalPlatelets (Bld) [#/Vol]Platelets [#/volume] in Blood by Automated seryg822-786KrgaijsyzMiddletown Hospital Potassium [Moles/volume] in Serum or PlasmaOrdered By: Sin Mabry on 02-28-2024 Potassium [Moles/Vol]3.9 mmol/L3.5-5.1FDetwiler Memorial HospitalProtein [Mass/volume] in Serum or PlasmaOrdered By: Sin Mabry on 42-39-5355Apnklnx [Mass/Vol]6.9 g/dL6.4-8.9[facility] HospitalProtein [Mass/Vol] Protein [Mass/volume] in Serum or Plasma6.4-8.9[facility] Prothrombin time (PT)Ordered By: Sin Mabry on 20-16-0947KN Coag (PPP) [Time] 22.4 sHigh9.0-12.9[facility] HospitalComment on above:A hematocrit value greater than 55% may lead to inaccurate results in coagulation testing. Patientshaving hematocrit values >55% require a special collection tube for coagulation studies. Please contact the laboratory at [phone] for redraw instructions.PT Coag (PPP) [Time]Prothrombin time (PT)High9.0-12.9[facility] HospitalComment on above:A hematocrit value greater than 55% may lead to inaccurate results in coagulation testing. Patientshaving hematocrit values >55% require a special collection tube for coagulation studies. Please c ontact the laboratory at [phone] for redraw instructions.RBC Auto (Bld) [#/Vol]Ordered By: Sin Mabry on 58-58-7772DDP (Bld) [#/Vol]4.09 10*6/uL 3.90-5.60[facility] HospitalRBC (Bld) [#/Vol]Erythrocytes [#/volume] in Blood by Automated count3.90-5.60[facility] Serum or plasma albumin/globulin mass ratioOrdered By: Sin Mabry on 02-28-2024 Albumin/Globulin [Mass ratio]1.2 {ratio}[facility] Albumin/Globulin [Mass ratio]Serum or plasma albumin/globulin mass ratio [facility] Centererum or plasma anion gap determinationOrdered By: Sin Mabry on 99-55-2662Lufls gap [Moles/Vol]10.8 mmol/L6.0-15.0[facility] Medical Centererum or plasma non-glucuronidated bilirubin measurement (mass/volume)Ordered By: Sin Mabry on 45-86-6032Tybprxgtg.indirect [Mass/Vol] 0.3 mg/dLMiddletown HospitalBilirubin.indirect [Mass/Vol]Serum or plasma non-glucuronidated bilirubin measurement (mass/volume)[facility] Centerodium [Moles/volume] in Serum or PlasmaOrdered By: Sin Mabry on 40-30-1623Chsptu [Moles/Vol]128 mmol/RWmg467-750IqdrekvmaMiddletown HospitalTroponin I.cardiac [Mass/volume] in Serum or Plasma by Detection limit <= 0.01 ng/Ordered By: Sin Mabry on 65-08-1714Ftiguzvs I.cardiac DL <= 0.01 ng/mL [Mass/Vol]4.9 pg/mL0.0-20.0[facility] HospitalTroponin I.cardiac DL <= 0.01 ng/mL [Mass/Vol]Troponin I.cardiac [Mass/volume] in Serum or Plasma by Detection limit <= 0.01 ng/0.0-20.0[facility] HospitalUrea nitrogen [Mass/volume] in Serum or PlasmaOrdered By: Sin Mabry on 02-28-2024 Urea nitrogen [Mass/Vol]11 mg/dL7-25M[facility] HospitalWBC Auto (Bld) [#/Vol]Ordered By: Sin Mabry on 40-67-3345UBF (Bld) [#/Vol]5.9 10*3/uL 4.1-10.5FDetwiler Memorial HospitalWBC (Bld) [#/Vol]Leukocytes [#/volume] in Blood by Automated count4.1-10.5FDetwiler Memorial HospitalaPTT in Platelet poor plasma by Coagulation assayOrdered By: Sin Mabry on 02-28-2024 aPTT Coag (PPP) [Time]Activated partial thromboplastin time (aPTT) in platelet poor plasma by coagulation aHi25.1-36.5FDetwiler Memorial Hospital Comment on above:A hematocrit value greater than 55% may lead to inaccurate results in coagulation testing. Patientshaving hematocrit values >55% require a special collection tube for coagulation studies. Please contact the laboratory at [phone] for redraw instructions.Basophils Auto (Bld) [#/Vol]Ordered By: Rubin Billy on 91-66-6551Xtkynxnsl (Bld) [#/Vol]0.0 10*3/uL0.0-0.2FDetwiler Memorial HospitalBasophils (Bld) [#/Vol]Automated basophil count0.0-0.2 [facility] HospitalBasophils/100 WBC Auto (Bld)Ordered By: Rubin Billy on 47-18-4653Mkfxjpvte/100 WBC (Bld)0.2 %.[facility] HospitalBasophils/100 WBC (Bld)Automated basophil %.[facility] HospitalCalcium [Mass/volume] in Serum or PlasmaOrdered By: Rubin Billy on 69-40-5342Hwvymni [Mass/Vol]8.7 mg/dL8.6-10.3FDetwiler Memorial Hospital Calcium [Mass/Vol]Calcium [Mass/volume] in Serum or Plasma8.6-10.3FDetwiler Memorial HospitalCarbon dioxide, total [Moles/volume] in Serum or Plasma Ordered By: Rubin Billy on 63-38-3143QH8 [Moles/Vol]29.9 mmol/L21.0-31.0 [facility] HospitalCO2 [Moles/Vol]Carbon dioxide, total [Moles/volume] in Serum or Rvcpvk37.0-31.0[facility] Chloride [Moles/volume] in Serum or PlasmaOrdered By: Rubin Billy on 11-09-4096Ntostkvo [Moles/Vol]100 mmol/N54-725CcvaihtpvMiddletown Hospital Chloride [Moles/Vol]Chloride [Moles/volume] in Serum or Grajqi58-124YkhinyhmgMiddletown HospitalCreatinine [Mass/volume] in Serum or PlasmaOrdered By: Rubin Billy on 14-58-6259Tylrluuhue [Mass/Vol]0.88 mg/dL0.70-1.30[facility] HospitalCreatinine [Mass/Vol]Creatinine [Mass/volume] in Serum or Plasma0.70-1.30[facility] HospitalEosinophils Auto (Bld) [#/Vol] Ordered By: Rubin Billy on 57-71-8063Zzrihuaducu (Bld) [#/Vol]0.1 10*3/uL 0.0-0.45[facility] HospitalEosinophils (Bld) [#/Vol]Automated eosinophil count0.0-0.45[facility] HospitalEosinophils/100 WBC Auto (Bld)Ordered By: Rubin Billy on 68-10-7046Mcrjjckkavf/100 WBC (Bld)1.2 %.[facility] HospitalEosinophils/100 WBC (Bld)Automated eosinophil %.[facility] HospitalErythrocyte distribution width Auto (RBC) [Ratio]Ordered By: Rubin Billy on 48-46-6071Zneametypvl distribution width (RBC) [Ratio]14.1 %12.0-14.8[facility] Erythrocyte distribution width (RBC) [Ratio]Erythrocyte distribution width [Ratio] by Automated count12.0-14.8[facility] HospitalGlucose [Mass/volume] in Serum or PlasmaOrdered By: Rubin Billy on 02-04-2024 Glucose [Mass/Vol]83 mg/fU38-311LpxswcwceMiddletown HospitalComment on above:ADA recommended reference rangeRandom Glucose Reference Range is dependent on time and content of last meal. Glucose of more than 200 mg/dL in a nonstressed, ambulatory subject supports the diagnosisof Diabetes Mellitus. Glucose [Mass/Vol]Glucose [Mass/volume] in Serum or Xjstza11-841YeupwxnphMiddletown HospitalComment on above:ADA recommended reference rangeRandom Glucose Reference Range is dependent on time and content of last meal. Glucose of more than 200 mg/dL in a nonstressed, ambulatory subject supports the diagnosisof Diabetes Mellitus.Hematocrit Auto (Bld) [Volume fraction]Ordered By: Rubin Billy on 55-60-8104Mvylskkwuu (Bld) [Volume fraction]34.0 %Low 38.8-50.0[facility] HospitalHematocrit (Bld) [Volume fraction] Hematocrit [Volume Fraction] of Blood by Automated khsruCqd42.8-50.0[facility] HospitalHemoglobin [Mass/volume] in BloodOrdered By: Rubin Billy on 44-99-1479Eutkmsllyu (Bld) [Mass/Vol]11.4 g/dLLow13.0-17.0[facility] HospitalHemoglobin (Bld) [Mass/Vol]Hemoglobin [Mass/volume] in ZmhalByd01.0-17.0[facility] HospitalLeukocytes [#/volume] corrected for nucleated erythrocytes in Blood by Automated counOrdered By: Rubin Billy on 18-47-5587ODY corrected for nucl RBC Auto (Bld) [#/Vol]7.7 10*3/uL4.1-10.5FDetwiler Memorial HospitalWBC corrected for nucl RBC Auto (Bld) [#/Vol]Leukocytes [#/volume] corrected for nucleated erythrocytes in Blood by Automated coun4.1-10.5FDetwiler Memorial HospitalLymphocytes Auto (Bld) [#/Vol]Ordered By: Rubin Billy on 47-33-1417Gdavjbbbdgp (Bld) [#/Vol] 1.1 10*3/uL1.00-4.8[facility] HospitalLymphocytes (Bld) [#/Vol] Lymphocytes [#/volume] in Blood by Automated count1.00-4.8[facility] HospitalLymphocytes/100 WBC Auto (Bld)Ordered By: Rubin Billy on 49-80-7192Lvxwdaexued/100 WBC (Bld)13.6 %.[facility] Lymphocytes/100 WBC (Bld)Lymphocytes/100 leukocytes in Blood by Automated count. [facility] Auto (RBC) [Entitic mass]Ordered By: Rubin Billy on 55-38-1838AYS (RBC) [Entitic mass]30.6 pg27.5-35.2FCincinnati [facility] (RBC) [Entitic mass]MCH [Entitic mass] by Automated count27.5-35.2FRegional Medical CenterHC Auto (RBC) [Mass/Vol]Ordered By: Rubin Billy on 30-12-8455BVUX (RBC) [Mass/Vol]33.7 g/dL32.5-35.6 [facility] HospitalHC (RBC) [Mass/Vol]MCHC [Mass/volume] by Automated count32.5-35.6FDetwiler Memorial HospitalMCV Auto (RBC) [Entitic vol]Ordered By: Rubin Billy on 10-56-2591QOD (RBC) [Entitic vol]90.8 fL 83.5-101[facility] HospitalV (RBC) [Entitic vol]MCV [Entitic volume] by Automated count83.5-101[facility] HospitalMonocytes Auto (Bld) [#/Vol]Ordered By: Rubin Billy on 88-65-8495Hwbdeyvlo (Bld) [#/Vol]1.0 10*3/uLHigh0.0-0.8[facility] HospitalMonocytes (Bld) [#/Vol]Automated blood monocyte countHigh0.0-0.8[facility] HospitalMonocytes/100 WBC Auto (Bld)Ordered By: Rubni Billy on 02-04-2024 Monocytes/100 WBC (Bld)12.9 %.[facility] HospitalMonocytes/100 WBC (Bld)Automated monocyte %.[facility] HospitalNeutrophils Auto (Bld) [#/Vol]Ordered By: Rubin Billy on 28-90-0637Wohgjxetwqc (Bld) [#/Vol] 5.6 10*3/uL1.8-7.7FDetwiler Memorial HospitalNeutrophils (Bld) [#/Vol] Neutrophils [#/volume] in Blood by Automated count1.8-7.7FDetwiler Memorial HospitalNeutrophils/100 WBC Auto (Bld)Ordered By: Rubin Billy on 47-02-0494Rrjierztywc/100 WBC (Bld)72.1 %.[facility] Neutrophils/100 WBC (Bld)Automated neutrophil %.[facility] HospitalNo Panel InformationOrdered By: Rubin Billy on 47-28-1461Rrgoawbin GFR (CKD-EPI)> 60.0 mL/MinMiddletown HospitalPharmacy Creatinine Clearance (Chem86.96[facility] HospitalNucleated erythrocytes [Presence] in Blood by Automated countOrdered By: Rubin Billy on 02-04-2024 Nucleated RBC Auto Ql (Bld)0.1 /100{WBC}0-0.5FDetwiler Memorial Hospital Nucleated RBC Auto Ql (Bld)Nucleated erythrocytes [Presence] in Blood by Automated count0-0.5FDetwiler Memorial HospitalPlatelet mean volume Auto (Bld) [Entitic vol]Ordered By: Rubin Billy on 85-09-8429Xsakmusb mean volume (Bld) [Entitic vol]7.8 fL6.6-10.1FDetwiler Memorial Hospital Platelet mean volume (Bld) [Entitic vol]Platelet mean volume [Entitic volume] in Blood by Automated count6.6-10.1FDetwiler Memorial HospitalPlatelets Auto (Bld) [#/Vol]Ordered By: Rubin Billy on 58-32-7158Qmsiaiskr (Bld) [#/Vol] 246 10*3/iO852-161PncuzafkzMiddletown HospitalPlatelets (Bld) [#/Vol] Platelets [#/volume] in Blood by Automated ckojj369-519ZrlwslehiMiddletown HospitalPotassium [Moles/volume] in Serum or PlasmaOrdered By: Rubin Billy on 90-26-7784Umwzdemca [Moles/Vol]4.4 mmol/L3.5-5.1FDetwiler Memorial HospitalPotassium [Moles/Vol]Potassium [Moles/volume] in Serum or Plasma 3.5-5.1FDetwiler Memorial HospitalRBC Auto (Bld) [#/Vol]Ordered By: Rubin Billy on 36-40-6018MYE (Bld) [#/Vol]3.74 10*6/uLLow3.90-5.60[facility] HospitalRBC (Bld) [#/Vol]Erythrocytes [#/volume] in Blood by Automated countLow3.90-5.60[facility] Centererum or plasma anion gap determinationOrdered By: Rubin Billy on 21-97-5091Znvur gap [Moles/Vol]7.5 mmol/L6.0-15.0[facility] HospitalAnion gap [Moles/Vol]Serum or plasma anion gap determination6.0-15.0[facility] Medical Centerodium [Moles/volume] in Serum or PlasmaOrdered By: Rubin Billy on 06-17-6421Ujzebf [Moles/Vol]133 mmol/RCsm105-393GljznufhyMercy Health St. Rita's Medical Centerodium [Moles/Vol]Sodium [Moles/volume] in Serum or PlasmaLow 136-145[facility] HospitalUrea nitrogen [Mass/volume] in Serum or PlasmaOrdered By: Rubin Billy on 84-59-1664Thns nitrogen [Mass/Vol]22 mg/dL 12-06M[facility] HospitalUrea nitrogen [Mass/Vol]Urea nitrogen [Mass/volume] in Serum or Plasma12-06[facility] HospitalWBC Auto (Bld) [#/Vol]Ordered By: Rubin Billy on 70-47-5344CEU (Bld) [#/Vol]7.7 10*3/uL4.1-10.5FDetwiler Memorial HospitalWBC (Bld) [#/Vol]Leukocytes [#/volume] in Blood by Automated count4.1-10.5FDetwiler Memorial Hospital Activated partial thromboplastin time (aPTT) in platelet poor plasma by coagulation aOrdered By: Rubin Billy on 12-23-1972dBXF Coag (PPP) [Time] 30.2 s25.1-36.5FDetwiler Memorial HospitalComment on above:A hematocrit value greater than 55% may lead to inaccurate results in coagulation testing. Patientshaving hematocrit values >55% require a special collection tube for coagulation studies. Please contact the laboratory at [phone] for redraw instructions.Alanine aminotransferase [Enzymatic activity/volume] in Serum or PlasmaOrdered By: Rubin Billy on 37-04-0837CIN [Catalytic activity/Vol]7 U/LMiddletown HospitalALT [Catalytic activity/Vol]Alanine aminotransferase [Enzymatic activity/volume] in Serum or PlasmaMiddletown HospitalAlbumin [Mass/volume] in Serum or Plasma by Bromocresol green (BCG) dye binding methoOrdered By: Rubin Billy on 32-04-3706Jkgschm BCG dye [Mass/Vol]3.6 g/dL3.5-5.7FDetwiler Memorial HospitalAlbumin BCG dye [Mass/Vol]Albumin [Mass/volume] in Serum or Plasma by Bromocresol green (BCG) dye binding metho3.5-5.7FDetwiler Memorial HospitalAlkaline phosphatase [Enzymatic activity/volume] in Serum or PlasmaOrdered By: Rubin Billy on 11-67-6698LDK [Catalytic activity/Vol]62 U/G65-256PwummolbtMiddletown HospitalALP [Catalytic activity/Vol]Alkaline phosphatase [Enzymatic activity/volume] in Serum or Gdwjzx93-948HkymrtmujMiddletown HospitalAspartate aminotransferase [Enzymatic activity/volume] in Serum or Plasma Ordered By: Rubin Billy on 92-47-6063EUC [Catalytic activity/Vol]10 U/LLow 1310 Barnes StreetAST [Catalytic activity/Vol]Aspartate aminotransferase [Enzymatic activity/volume] in Serum or NeinipUfl55-44FdktavdfpMiddletown HospitalBilirubin.direct [Mass/volume] in Serum or PlasmaOrdered By: Rubin Billy on 23-34-2685Ipygglnbb.direct [Mass/Vol]0.10 mg/dL0.03-0.18 [facility] HospitalBilirubin.direct [Mass/Vol]Bilirubin.direct [Mass/volume] in Serum or Plasma0.03-0.18FDetwiler [facility] Hospital Bilirubin.total [Mass/volume] in Serum or PlasmaOrdered By: Rubin Billy on 57-97-4558Zhafahvqc [Mass/Vol]0.6 mg/dL0.3-1.0[facility] Bilirubin [Mass/Vol]Bilirubin.total [Mass/volume] in Serum or Plasma0.3-1.0 [facility] HospitalBlood estimated average glucose determination by estimation from glycated hemoglobinOrdered By: Rubin Billy on 02-03-2024 Average glucose Estimated from glycated hemoglobin (Bld) [Mass/Vol]Glucose mean value [Mass/volume] in Blood Estimated from glycated hemoglobinMiddletown HospitalCholesterol [Mass/volume] in Serum or PlasmaOrdered By: Rubin Billy on 21-95-3715Ipckorpcdbl [Mass/Vol]144 mg/gS530-799AvpdeespgMiddletown HospitalComment on above:Chol less than 200 mg/dl low riskChol 201-239 mg/dl borderline riskChol 240 mg/dl and greater high riskCholesterol [Mass/Vol]Cholesterol [Mass/volume] in Serum or Shigqq036-384CjefkjyayMiddletown HospitalComment on above:Chol less than 200 mg/dl low riskChol 201-239 mg/dl borderline riskChol 240 mg/dl and greater high riskCholesterol in HDL [Mass/volume] in Serum or PlasmaOrdered By: Rubin Billy on 02-03-2024 Cholesterol in HDL [Mass/Vol]Serum or plasma high density lipoprotein (HDL) cholesterol syhlsfswcre78-27MrppifyzyMiddletown HospitalComment on above: HDL CHOL ATP-III CLASSIFICATION Cardiovascular RiskHDL > or equal to 60 mg/dL LOWHDL < 40 mg/dL HIGHCholesterol in LDL Calc [Mass/Vol]Ordered By: Rubin Billy on 05-18-2354Ywaiuacpiuk in LDL [Mass/Vol]64 mg/dL0-100[facility] HospitalComment on above:LDL ATP III CLASSIFICATIONLDL less than 100 mg/dL OptimalLDL 100-129 mg/dL Near or above iuzyxpjEMG395-939 mg/dL Borderline highLDL 160-189 mg/dL HighLDL greater than 189 mg/dL Very high Cholesterol in LDL [Mass/Vol]Cholesterol in LDL [Mass/volume] in Serum or Plasma by calculation0M[facility]own HospitalComment on above:LDL ATP III CLASSIFICATIONLDL less than 100 mg/dL OptimalLDL 100-129 mg/dL Near or above audknsjYFS691-813 mg/dL Borderline highLDL 160-189 mg/dL HighLDL greater than 189 mg/dL Very highCholesterol in VLDL Calc [Mass/Vol]Ordered By: Rubin Billy on 25-61-0157Yzyvhcehrcb in VLDL [Mass/Vol]7 mg/dLMiddletown HospitalCholesterol in VLDL [Mass/Vol]Cholesterol in VLDL [Mass/volume] in Serum or Plasma by calculationMiddletown HospitalGlobulin Calc (S) [Mass/Vol]Ordered By: Rubin Billy on 90-91-2537Ghnjvmnb (S) [Mass/Vol] 2.6 g/dLMiddletown HospitalGlobulin (S) [Mass/Vol]Serum globulin measurement by calculation (mass/volume)[facility] HospitalGlucose mean value [Mass/volume] in Blood Estimated from glycated hemoglobinOrdered By: Rubin Billy on 48-16-6993Mnjwmim glucose Estimated from glycated hemoglobin (Bld) [Mass/Vol]108 mg/dLMiddletown HospitalHemoglobin A1c percentageOrdered By: Rubin Billy on 39-11-5065HiP0r (Bld) [Mass fraction]5.4 %4.3-5.6FDetwiler Memorial HospitalComment on above:Increased risk for diabetes: 5.7 - 6.4diabetes: >6.4glycemic control for adults with diabetes: <7.0Hemoglobin A1c/Hemoglobin.total in BloodOrdered By: Rubin Billy on 77-40-6098MwO2u (Bld) [Mass fraction]Hemoglobin A1c percentage 4.3-5.6FDetwiler Memorial HospitalComment on above:Increased risk for diabetes: 5.7 - 6.4diabetes: >6.4glycemic control for adults with diabetes: &l t;7.0INR in Platelet poor plasma by Coagulation assayOrdered By: Rubin Billy on 77-36-4667QPJ Coag (PPP) [Relative time]1.0 {INR}[facility] HospitalComment on above:INR Therapeutic Range A) Pre- and [...] time]INR in Platelet poor plasma by Coagulation assayMiddletown Hospital Comment on above:INR Therapeutic Range A) Pre- [...] Serum or PlasmaOrdered By: Rubin Billy on 93-62-8897Gpxlcmsku [Mass/Vol]1.9 mg/dL1.9-2.7FDetwiler Memorial HospitalMagnesium [Mass/Vol]Magnesium [Mass/volume] in Serum or Plasma 1.9-2.7FDetwiler Memorial HospitalNatriuretic peptide B [Mass/Vol]Ordered By: Silvano Reed on 96-57-2592Xlsoklhzkdc peptide B (Bld) [Mass/Vol] 239.0 pg/mLHigh5-100[facility] HospitalNatriuretic peptide B (Bld) [Mass/Vol]BNP ser/plasHigh5-100[facility] HospitalProtein [Mass/volume] in Serum or PlasmaOrdered By: Rubin Billy on 02-03-2024 Protein [Mass/Vol]6.2 g/dLLow6.4-8.9[facility] HospitalProtein [Mass/Vol]Protein [Mass/volume] in Serum or PlasmaLow6.4-8.9[facility] HospitalProthrombin time (PT)Ordered By: Rubin Billy on 25-10-0839XO Coag (PPP) [Time]11.7 s9.0-12.9[facility] HospitalComment on above:A hematocrit value greater than 55% may lead to inaccurate results in coagulation testing. Patientshaving hematocrit values >55% require a special collection tube for coagulation studies. Please contact the laboratory at [phone] for redraw instructions.PT Coag (PPP) [Time]Prothrombin time (PT) 9.0-12.9[facility] HospitalComment on above:A hematocrit value greater than 55% may lead to inaccurate results in coagulation testing. Patients having hematocrit values >55% require a special collection tube for coagulation studies. Please contact the laboratory at [phone] for redraw instructions. Serum or plasma albumin/globulin mass ratioOrdered By: Rubin Billy on 15-44-6374Xqlxzjs/Globulin [Mass ratio]1.4 {ratio}[facility] HospitalAlbumin/Globulin [Mass ratio]Serum or plasma albumin/globulin mass ratio [facility] Centererum or plasma high density lipoprotein (HDL) cholesterol measurementOrdered By: Rubin Billy on 21-27-3689Kogqqgwriyi in HDL [Mass/Vol]73 mg/tN49-25QjljcbewaMiddletown HospitalComment on above:HDL CHOL ATP-III CLASSIFICATION Cardiovascular RiskHDL > or equal to 60 mg/dL LOWHDL < 40 mg/dL HIGHSerum or plasma non-glucuronidated bilirubin measurement (mass/volume)Ordered By: Rubin Billy on 04-84-5996Xdjkqaoac.indirect [Mass/Vol]0.5 mg/dLMiddletown HospitalBilirubin.indirect [Mass/Vol]Serum or plasma non-glucuronidated bilirubin measurement (mass/volume) [facility] Centererum or plasma total cholesterol/high density lipoprotein (HDL) cholesterol mass ratOrdered By: Rubin Billy on 02-03-2024 Cholesterol.total/Cholesterol in HDL [Mass ratio]2.0 {ratio}<5.0[facility] HospitalCholesterol.total/Cholesterol in HDL [Mass ratio]Serum or plasma total cholesterol/high density lipoprotein (HDL) cholesterol mass rat<5.0 [facility] HospitalTriglyceride [Mass/volume] in Serum or Plasma Ordered By: Rubin Billy on 02-96-9267Adqhjzossfob [Mass/Vol]37 mg/dL0-149 [facility] HospitalComment on above:TRIG ATP III CLASSIFICATIONTRIG less than 150 mg/dL NormalTRIG 150-199 mg/dL Borderline highTRIG 200-500 mg/dL High TRIG greater than 500 mg/dL Very highStandard traceable to the Center for Disease Conrtrol and Prevention (CDC) test method. Triglyceride [Mass/Vol]Triglyceride [Mass/volume] in Serum or Plasma0-149 [facility] HospitalComment on above:TRIG ATP III CLASSIFICATIONTRIG less than 150 mg/dL NormalTRIG 150-199 mg/dL Borderline highTRIG 200-500 mg/dL High TRIG greater than 500 mg/dL Very highStandard traceable to the Center for Disease Conrtrol and Prevention (CDC) test method. Troponin I.cardiac [Mass/volume] in Serum or Plasma by Detection limit <= 0.01 ng/Ordered By: Silvano Reed on 64-47-9585Kfhoxvnz I.cardiac DL <= 0.01 ng/mL [Mass/Vol]5.3 pg/mL0.0-20.0[facility] HospitalTroponin I.cardiac DL <= 0.01 ng/mL [Mass/Vol]Troponin I.cardiac [Mass/volume] in Serum or Plasma by Detection limit <= 0.01 ng/0.0-20.0[facility] HospitalaPTT in Platelet poor plasma by Coagulation assayOrdered By: Rubin Billy on 27-94-9594sSXA Coag (PPP) [Time]Activated partial thromboplastin time (aPTT) in platelet poor plasma by coagulation a25.1-36.5FDetwiler Memorial HospitalComment on above:A hematocrit value greater than 55% may lead to inaccurate results in coagulation testing. Patientshaving hematocrit values >55% require a special collection tube for coagulation studies. Please contact the laboratory at [phone] for redraw instructions.Basophils/100 WBC Manual cnt (Bld)on 85-24-8068Aylrzvsoq/100 WBC (Bld)1.0 %0.2-2.0[facility] HospitalBasophils/100 WBC (Bld)Basophils/100 leukocytes in Blood by Manual count 0.2-2.0[facility] HospitalEosinophils/100 WBC Manual cnt (Bld)on 56-69-4852Bzerkjmmiio/100 WBC (Bld)0.0 %Low0.9-7.0[facility] HospitalEosinophils/100 WBC (Bld)Eosinophils/100 leukocytes in Blood by Manual countLow0.9-7.0[facility] HospitalErythrocyte distribution width Auto (RBC) [Ratio]on 02-34-5213Buatuquiujj distribution width (RBC) [Ratio]13.6 %11.0-15.0[facility] HospitalErythrocyte distribution width (RBC) [Ratio]Erythrocyte distribution width [Ratio] by Automated count11.0-15.0 [facility] HospitalEstimated glomerular filtration rate (GFR) non- Americanon 46-72-4433QOP/1.73 sq M.predicted among non-blacks MDRD (S/P/Bld) [Vol rate/Area]mL/min/{1.73_m2}>=60[facility] GFR/1.73 sq M.predicted among non-blacks MDRD (S/P/Bld) [Vol rate/Area]Estimated glomerular filtration rate (GFR) non->=60[facility] HospitalHematocrit Auto (Bld) [Volume fraction]on 43-49-7229Dfiakamxhd (Bld) [Volume fraction]36.0 %Low42.0-54.0[facility] Hematocrit (Bld) [Volume fraction]Hematocrit [Volume Fraction] of Blood by Automated bzynfGab01.0-54.0[facility] HospitalHemoglobin [Mass/volume] in Bloodon 27-94-1620Kbjkqkacmn (Bld) [Mass/Vol]12.1 g/dLLow 14.0-18.0[facility] HospitalHemoglobin (Bld) [Mass/Vol]Hemoglobin [Mass/volume] in HoxmkOqq34.0-18.0[facility] HospitalLaboratory - Chemistry and Chemistry - challengeon 53-52-4788Vmqhgch [Mass/Vol]9.0 mg/dL 8.5-10.1FDetwiler Memorial HospitalChloride [Moles/Vol]96 mmol/KYpb76-560 [facility] HospitalCO2 [Moles/Vol]28.2 mmol/L21.0-32.0[facility] HospitalCreatinine [Mass/Vol]0.77 mg/dL0.70-1.30[facility] HospitalGFR/1.73 sq M.predicted MDRD (S/P/Bld) [Vol rate/Area] mL/min/{1.73_m2}>=60[facility] HospitalGlucose [Mass/Vol]121 mg/dL Bomf36-647PnhnfyznsMiddletown HospitalMagnesium [Mass/Vol]1.8 mg/dL1.8-2.4 [facility] HospitalNatriuretic peptide B (Bld) [Mass/Vol]2166.0 pg/mLCritically high<=900.0[facility] HospitalComment on above: RESULTS CALLED TO MARYSOL LEYVA RN at 2105Potassium [Moles/Vol]4.2 mmol/L3.5-5.[address] [facility] Medical Centerodium [Moles/Vol]130 mmol/DSuc103-838UafugtxtgMiddletown HospitalUrea nitrogen [Mass/Vol]15.0 mg/dL7.0-18.0[facility] HospitalUrea nitrogen/Creatinine [Mass ratio]19.5 mg/mgMiddletown HospitalLaboratory - Hematology and Cell countson 02-01-2024 Lymphocytes/100 WBC (Bld)12.0 %Low20.5-60.0[facility] Monocytes/100 WBC (Bld)5.0 %1.7-12.0[facility] HospitalLeukocytes [#/volume] corrected for nucleated erythrocytes in Blood by Automated counon 25-36-1568MXX corrected for nucl RBC Auto (Bld) [#/Vol]8.6 10 3/uL4.0-11.0 [facility] HospitalWBC corrected for nucl RBC Auto (Bld) [#/Vol] Leukocytes [#/volume] corrected for nucleated erythrocytes in Blood by Automated coun4.0-11.0[facility] HospitalH Auto (RBC) [Entitic mass]on 77-10-4473FGR (RBC) [Entitic mass]30.3 pg25.9-34.0[facility] HospitalH (RBC) [Entitic mass]MCH [Entitic mass] by Automated count25.9-34.0 [facility] HospitalMCHC Auto (RBC) [Mass/Vol]on 77-79-4984MKQX (RBC) [Mass/Vol]33.6 g/dL29.9-35.2FRegional Medical CenterHC (RBC) [Mass/Vol]MCHC [Mass/volume] by Automated count29.9-35.2FRegional Medical CenterV Auto (RBC) [Entitic vol]on 53-24-6011GEY (RBC) [Entitic vol] 90.2 fL80.0-94.0[facility] HospitalV (RBC) [Entitic vol]MCV [Entitic volume] by Automated count80.0-94.0[facility] HospitalNo Panel Informationon 52-59-2793Tufshlkw Basophils (Manual)0.08 10 3/uL0.00-0.10 [facility] HospitalEosinophils # (Manual)0.00 10 3/uL0.00-0.70 [facility] HospitalLymphocytes # (Manual)1.03 10 3/uLLow1.20-3.80 [facility] HospitalMonocytes # (Manual)0.43 10 3/uL0.30-0.[address] [facility] Medical Centeregmented Neutrophils # (Manual)7.05 10 3/uL High1.4-6.5FDetwiler Memorial HospitalTroponin I High Sensitivity7.0 pg/mL 4.0-76.1FDetwiler Memorial HospitalComment on above:CUT-OFF POINTS HAVE BEEN ESTABLISHED BASED [...] INFORMATION.Platelet mean volume Auto (Bld) [Entitic vol]on 33-20-7612Ovwssrdm mean volume (Bld) [Entitic vol]9.9 fL9.5-13.5FDetwiler Memorial HospitalPlatelet mean volume (Bld) [Entitic vol]Platelet mean volume [Entitic volume] in Blood by Automated count 9.5-13.5FDetwiler Memorial HospitalPlatelets Auto (Bld) [#/Vol]on 67-36-3687Nzhkfxlki (Bld) [#/Vol]249 10 3/wD974-612OvxmdyouuMiddletown HospitalPlatelets (Bld) [#/Vol]Platelets [#/volume] in Blood by Automated count 150-450M[facility] HospitalRBC Auto (Bld) [#/Vol]on 19-35-8386HPM (Bld) [#/Vol]3.99 10 6/uLLow4.70-6.10[facility] HospitalRBC (Bld) [#/Vol]Erythrocytes [#/volume] in Blood by Automated countLow4.70-6.10[facility] CenterSegmented neutrophils/100 WBC Manual cnt (Bld)on 23-33-0128Zfzxxblac neutrophils/100 WBC (Bld)82.0 %High43.0-75.0[facility] Medical Centeregmented neutrophils/100 WBC (Bld)Manual blood segmented neutrophils/100 gyipiaxuuxYupi65.0-75.0[facility] Medical Centererum or plasma anion gap determinationon 11-85-5406Fbfap gap [Moles/Vol]10.0 mmol/L [facility] HospitalAnion gap [Moles/Vol]Serum or plasma anion gap determinationMiddletown HospitalOSMOLALITYon 08-90-9368Sazrjreoxr [Osmolality]275 mosm/kgCritically eub317-698Cpw [facility] CampusComment on above:Performed By: #### URIC, BMP, TSH #### [facility] [address] [place] [address] Dr. Fabrizio PascualOSMOLALITY URINEon 37-03-9961Wyqdtflnqf, Maeag255 mOsmol/kgNormal The [facility] CampusComment on above:Result Comment: 24 hr : 300 - 900 Random: 50 - 1400 After 12hr fluid restriction: >850Performed By: #### URIC, BMP, TSH #### [facility] [address] [place] [address] Dr. Fabrizio Zafar W MANUAL DIFFon 98-30-2229CKFEGVQQ LYMPH #NormalThe [facility] South CampusCommackinac straits hospital on above:Performed By: #### BNP, BMP, HSTROPN #### [facility] [address] [place] [address] Dr. Fabrizio PascualATYPICAL LYMPH %NormalThe [facility] CampusComment on above: Performed By: #### BNP, BMP, HSTROPN #### [facility] [address] [address] [address] Fabrizio Crowder #0.1 103/ulNormal0.0-0.3The [facility] CampusComment on above:Performed By: #### BNP, BMP, HSTROPN #### [facility] [address] [place] [address] Dr. Fabrizio Crowder %1 %Normal0-5The [facility] CampusComment on above:Performed By: #### BNP, BMP, HSTROPN #### [facility] [address] [place] [address] Dr. Fabrizio Nichols #0.00 103/ulNormal0.00-0.10The [facility] CampusComment on above:Performed By: #### BNP, BMP, HSTROPN #### [facility] [address] [place] [address] Dr. Fabrizio Nichols %0.0 %Critically low0.2-2.0The [facility] CampusComment on above:Performed By: #### BNP, BMP, HSTROPN #### [facility] [address] [place] [address] Dr. Fabrizio Prado #NormalThe [facility] CampusComment on above:Performed By: #### BNP, BMP, HSTROPN #### [facility] [address] [place] [address] Dr. Fabrizio Prado %NormalThe [facility] CampusComment on above:Performed By: #### BNP, BMP, HSTROPN #### [facility] [address] [place] [address] Dr. Fabrizio PascualCORRECTED WBCNormal4.0-11.0The [facility] on above: Performed By: #### BNP, BMP, HSTROPN #### [facility] [address] [place] [address] Dr. Fabrizio Cedillo #0.07 103/ulNormal0.00-0.70The [facility] CampusCommackinac straits hospital on above:Performed By: #### BNP, BMP, HSTROPN #### [facility] [address] [place] [address] Dr. Fabrizio Cedillo%1.0 %Normal0.9-7.0The [facility] CampusComment on above: Performed By: #### BNP, BMP, HSTROPN #### [facility] [address] [place] [address] Dr. Fabrizio PascualHCT38.8 %Critically low42.0-54.0The [facility] CampusComment on above:Performed By: #### BNP, BMP, HSTROPN #### [facility] [address] [place] [address] Dr. Fabrizio PascualHGB12.5 g/dlCritically low14.0-18.0The [facility] CampusComment on above:Performed By: #### BNP, BMP, HSTROPN #### [facility] [address] [place] [address] Dr. Fabrizio Abdullahi #0.68 103/ulCritically low1.20-3.80The [facility] Comment on above:Performed By: #### BNP, BMP, HSTROPN #### [facility] [address] [place] [address] Dr. Fabrizio Abdullahi%9.0 %Critically low20.5-60.0The [facility] CampusComment on above:Performed By: #### BNP, BMP, HSTROPN #### [facility] [address] [place] [address] Dr. Fabrizio RamosH28.1 vcSfsvqc26.9-34.0The [facility] CampusComment on above: Performed By: #### BNP, BMP, HSTROPN #### [facility] [address] [place] [address] Dr. Fabrizio PascualMCHC32.2 g/rrBkpbyo35.9-35.2The [facility] CampusComment on above:Performed By: #### BNP, BMP, HSTROPN #### [facility] [address] [place] [address] Dr. Fabrizio RamosV87.2 dNGzpvhb91.0-94.0The [facility] CampusComment on above: Performed By: #### BNP, BMP, HSTROPN #### [facility] [address] [place] [address] Dr. Fabrizio RehmanAMYELOCYTE #NormalThe [facility] CampusComment on above: Performed By: #### BNP, BMP, HSTROPN #### [facility] [address] [address] [address] Fabrizio RehmanAMYELOCYTE %NormalUniversity Hospitals Geneva Medical CenterComment on above: Performed By: #### BNP, BMP, HSTROPN #### [facility] [address] [address] [address] Fabrizio Landis#0.82 103/ulCritically high0.30-0.80The [facility] on above:Performed By: #### BNP, BMP, HSTROPN #### [facility] [address] [address] [address] Fabrizio Landis%11.0 %Normal1.7-12.0The [facility] CampusComment on above: Performed By: #### BNP, BMP, HSTROPN #### [facility] [address] [place] [address] Dr. Fabrizio PascualMPV9.2 fLCritically low9.5-13.5The [facility] CampusComment on above:Performed By: #### BNP, BMP, HSTROPN #### [facility] [address] [place] [address] Dr. Fabrizio AnthonyOCYTE #NormalUniversity Hospitals Geneva Medical CenterComment on above:Performed By: #### BNP, BMP, HSTROPN #### [facility] [address] [place] [address] Dr. Fabrizio AnthonyOCYTE %NormalThe [facility] CampusComment on above:Performed By: #### BNP, BMP, HSTROPN #### [facility] [address] [place] [address] Dr. Fabrizio SouzaBCNormalThe [facility] CampusComment on above:Performed By: #### BNP, BMP, HSTROPN #### [facility] [address] [place] [address] Dr. Fabrizio PascualPLT272 103/olDksfkb035-987Hye [facility] CampusComment on above: Performed By: #### BNP, BMP, HSTROPN #### [facility] [address] [place] [address] Dr. Fabrizio PascualRBC4.45 106/ulCritically low4.70-6.10The [facility] CampusComment on above:Performed By: #### BNP, BMP, HSTROPN #### [facility] [address] [place] [address] Dr. Fabrizio GreenW13.7 %Assruw51.0-15.0The [facility] CampusComment on above: Performed By: #### BNP, BMP, HSTROPN #### [facility] [address] [place] [address] Dr. Fabrizio Pardo #5.85 103/ulNormal1.40-6.50The [facility] CampusComment on above:Performed By: #### BNP, BMP, HSTROPN #### [facility] [address] [place] [address] Dr. Fabrizio Pardo %78.0 %Critically high43.0-75.0The [facility] CampusComment on above:Performed By: #### BNP, BMP, HSTROPN #### [facility] [address] [place] [address] Dr. Fabrizio RayaBC7.5 103/ulNormal4.0-11.0The [facility] CampusComment on above: Performed By: #### BNP, BMP, HSTROPN #### [facility] [address] [place] [address] Dr. Fabrizio Rush CHEM 8 (BAS METB)on 16-68-0466Akdln gap [Moles/Vol]10.1 mmol/LNormalThe [facility] CampusComment on above:Performed By: #### URIC, BMP, TSH #### [facility] [address] [place] [address] Dr. Fabrizio PascualCalcium [Mass/Vol]9.0 mg/dLNormal8.5-10.1The [facility] Comment on above:Performed By: #### URIC, BMP, TSH #### [facility] [address] [place] [address] Dr. Fabrizio PascualChloride [Moles/Vol]99 mmol/WWhxscx41-267Lau [facility] Comment on above:Performed By: #### URIC, BMP, TSH #### [facility] [address] [address] [address] Fabrizio PascualCO2 [Moles/Vol]28.9 mmol/SUljnhi28.0-32.0The [facility] Comment on above:Performed By: #### URIC, BMP, TSH #### [facility] [address] [address] [address] Fabrizio PascualCreatinine [Mass/Vol]1.00 mg/dLNormal0.70-1.30The [facility] CampusComment on above:Performed By: #### URIC, BMP, TSH #### [facility] [address] [place] [address] Dr. Fabrizio JohnsonGFR-AF [place]>60Normal>=60The [facility] CampusComment on above:Performed By: #### URIC, BMP, TSH #### [facility] [address] [address] [address] Fabrizio JohnsonGFR-NON AF [place]>60Normal>=60The [facility] CampusComment on above:Performed By: #### URIC, BMP, TSH #### [facility] [address] [address] [address] Fabrizio PascualGlucose [Mass/Vol]111 mg/dLCritically ziab30-099Rmq [facility] CampusComment on above:Performed By: #### URIC, BMP, TSH #### [facility] [address] [address] [address] Fabrizio PascualPotassium [Moles/Vol]4.0 mmol/LNormal3.5-5.1The [facility] Comment on above:Performed By: #### URIC, BMP, TSH #### [facility] [address] [place] [address] Dr. Fabrizio PascualSodium [Moles/Vol]134 mmol/LCritically rvs804-933Fgb [facility] CampusComment on above:Performed By: #### URIC, BMP, TSH #### [facility] [address] [place] [address] Dr. Fabrizio PascualUrea nitrogen [Mass/Vol]16.0 mg/dLNormal7.0-18.0The [facility] on above:Performed By: #### URIC, BMP, TSH #### [facility] [address] [place] [address] Dr. Fabrizio Cabrera nitrogen/Creatinine [Mass ratio]16.0 mg/mgNoWadsworth-Rittman HospitalComment on above:Performed By: #### URIC, BMP, TSH #### [facility] [address] [place] [address] Dr. Fabrizio OlveraDIUM RANDOM URINEon 90-96-9549Lnyypd (U) [Moles/Vol]78 mmol/L Soxujb03-27Fws [facility] CampusComment on above:Performed By: #### CHERYL #### [facility] [address] [place] [address] Dr. Fabrizio Zhu TAHIR DOP LEG LTon [id number] TAHIR DOP LEG LTEXAMINATION: US TAHIR DOP LEG LT HISTORY: Swelling COMPARISON: No relevant comparison available. TECHNIQUE: FINDINGS: Region: left leg Thrombus: None Flow: Normal Compressibility: Normal Augmentation: Normal Other: Subq edema IMPRESSION: No deep or superficial vein thrombus *Exam performed in accordance with [facility] practice guidelines- Peripheral venous ultrasound, August 08, 2009. Electronically authenticated by: GREGG QUIROS Date: 2022-05-16 15:34[facility] HospitalBNPon [id number] peptide B (Bld) [Mass/Vol]719.0 pg/mLNormal<=900.0The [facility] CampusCommackinac straits hospital on above:Performed By: #### BNP, BMP, HSTROPN #### [facility] [address] [place] [address] Dr. Fabrizio PascualCBC AUTO DIFFon [id number] #0.0 103/ulNormal0.0-0.1The [facility] on above:Performed By: #### CBC #### [facility] [address] [place] [address] Dr. Fabrizio PascualBasophils/100 WBC (Bld)0.2 %Normal0.2-2.0The [facility] Comment on above:Performed By: #### CBC #### [facility] [address] [place] [address] Dr. Fabrizio Jung #0.1 103/ulNormal0.0-0.7The [facility] CampusComment on above: Performed By: #### CBC #### [facility] [address] [place] [address] Dr. Fabrizio Johnsonosinophils/100 WBC (Bld)1.0 %Normal0.9-7.0[facility] Comment on above:Performed By: #### CBC #### [facility] [address] [place] [address] Dr. Fabrizio Johnsonrythrocyte distribution width (RBC) [Ratio]13.1 %Dvcxml58.0-15.0 [facility] CenterComment on above:Performed By: #### CBC #### [facility] [address] [place] [address] Dr. Fabrizio PascualHematocrit (Bld) [Volume fraction]32.6 %Critically low42.0-54.0 [facility] CenterComment on above:Performed By: #### CBC #### [facility] [address] [place] [address] Dr. Fabrizio PascualHemoglobin (Bld) [Mass/Vol]10.9 g/dLCritically low14.0-18.0[facility] CenterComment on above:Performed By: #### CBC #### [facility] [address] [place] [address] Dr. Fabrizio Nolasco #0.06 10e3/ulCritically high0.00-0.03[facility] Comment on above:Performed By: #### CBC #### [facility] [address] [place] [address] Dr. Fabrizio Nolasco %0.6 %Critically high0.0-0.5The [facility] CampusComment on above:Performed By: #### CBC #### [facility] [address] [place] [address] Dr. Fabrizio Richardson #0.6 103/ulCritically low1.2-3.8ThC[facility] Clinic [facility] Comment on above:Performed By: #### CBC #### [facility] [address] [place] [address] Dr. Fabrizio Covarrubiasmphocytes/100 WBC (Bld)5.8 %Critically low20.5-60.0The [facility] CampusComment on above:Performed By: #### CBC #### [facility] [address] [place] [address] Dr. Fabrizio King DIFF REQNONormalThe [facility] CampusComment on above: Performed By: #### CBC #### [facility] [address] [place] [address] Dr. Fabrizio Ramos (RBC) [Entitic mass]29.3 byWlpdwh98.9-34.0The [facility] CampusComment on above:Performed By: #### CBC #### [facility] [address] [place] [address] Dr. Fabrizio Ramos (RBC) [Mass/Vol]33.4 g/wRKpbeap68.9-35.2The [facility] CampusComment on above:Performed By: #### CBC #### [facility] [address] [place] [address] Dr. Fabrizio Clements (RBC) [Entitic vol]87.6 zPOyyuux65.0-94.0The [facility] CampusComment on above:Performed By: #### CBC #### [facility] [address] [place] [address] Dr. Fabrizio Gutierrez #1.4 103/ulCritically high0.3-0.8ThC[facility] Clinic [facility] Comment on above:Performed By: #### CBC #### [facility] [address] [place] [address] Dr. Fabrizio Ribeiroocytes/100 WBC (Bld)13.4 %Critically high1.7-12.0The [facility] CampusComment on above:Performed By: #### CBC #### [facility] [address] [place] [address] Dr. Yilan ChangNEUT #8.4 103/ulCritically high1.4-6.5The [facility] Comment on above:Performed By: #### CBC #### [facility] [address] [place] [address] Dr. Fabrizio Ellisutrophils/100 WBC (Bld)79.0 %Critically high43.0-75.0The [facility] CampusComment on above:Performed By: #### CBC #### [facility] [address] [place] [address] Dr. Fabrizio PascualPlatelet mean volume (Bld) [Entitic vol]9.1 fLCritically low 9.5-13.5The [facility] CampusComment on above:Performed By: #### CBC #### [facility] [address] [place] [address] Dr. Fabrizio PascualPLT347 103/wiCptuzk054-341Tcq [facility] CampusComment on above: Performed By: #### CBC #### [facility] [address] [place] [address] Dr. Fabrizio PascualRBC3.72 106/ulCritically low4.70-6.10The [facility] CampusComment on above:Performed By: #### CBC #### [facility] [address] [place] [address] Dr. Fabrizio PascualWBC10.7 103/ulNormal4.0-11.0The [facility] CampusComment on above:Performed By: #### CBC #### [facility] [address] [place] [address] Dr. Fabrizio PascualCovid-19 PCR ([facility])on 24-70-0071TGYL-CoV-2 (COVID-19) RNA HOWIE+probe Ql (Unsp spec)Not detectedNormalNOT DETECTEDThe [facility] Comment on above:Result Comment: When diagnostic testing [...] for this test is supported by the [place] of Health and Human Service's declaration that [...] longer be used).Performed By: #### CVDTBH #### [facility] [address] [place] [address] Dr. Fabrizio Moran AND Gato [facility] [id number] Memorial Hospital on above:Result Comment: Negative for Flu A protein angiten. Infection due to Flu A cannot be ruled out. FluA angiten in the sample may be below the detection limit of the test.Performed By: #### URIC, BMP, TSH #### [facility] [address] [place] [address] Dr. Fabrizio JonesUBNEGYEMI [facility] on above: Result Comment: Negative for Flu B protein antigen. Infection due to Flu B cannot be ruled out. FluB antigen in the sample may be below the detection limit of the test.Performed By: #### URIC, BMP, TSH #### [facility] [address] [place] [address] Dr. Fabrizio Moran AGNegativeNormalNEGATIVE SEE COMMENTThe [facility] on above:Performed By: #### URIC, BMP, TSH #### [facility] [address] [place] [address] Dr. Fabrizio Hoskins AGNegativeNormalNEGATIVE SEE COMMENTThe [facility] on above:Performed By: #### URIC, BMP, TSH #### [facility] [address] [place] [address] Dr. Fabrizio PascualINTERNAL CONTROLSWithin Normal LimitsNormalWithin Normal Limits The [facility] CampusComment on above:Performed By: #### URIC, BMP, TSH #### [facility] [address] [address] [address] Fabrizio FayF CHEM 8 (BAS METB)on 60-06-1540Ipgdk gap [Moles/Vol]10.8 mmol/LNormalThe [facility] CampusComment on above:Performed By: #### BNP, BMP, HSTROPN #### [facility] [address] [address] [address] Fabrizio PascualCalcium [Mass/Vol]8.8 mg/dLNormal8.5-10.1The [facility] Comment on above:Performed By: #### BNP, BMP, HSTROPN #### [facility] [address] [place] [address] Dr. Fabrizio PascualChloride [Moles/Vol]94 mmol/LCritically ljt84-563Vsi [facility] CampusComment on above:Performed By: #### BNP, BMP, HSTROPN #### [facility] [address] [place] [address] Dr. Fabrizio PascualCO2 [Moles/Vol]27.7 mmol/ZFyavek24.0-32.0The [facility] Comment on above:Performed By: #### BNP, BMP, HSTROPN #### [facility] [address] [place] [address] Dr. Fabrizio PascualCreatinine [Mass/Vol]1.09 mg/dLNormal0.70-1.30The [facility] CampusComment on above:Performed By: #### BNP, BMP, HSTROPN #### [facility] [address] [place] [address] Dr. Fabrizio JohnsonGFR-AF CAPE VERDEAN>60Normal>=60The [facility] CampusComment on above:Performed By: #### BNP, BMP, HSTROPN #### [facility] [address] [place] [address] Dr. Fabrizio JohnsonGFR-NON AF CAPE VERDEAN>60Normal>=60The [facility] CampusComment on above:Performed By: #### BNP, BMP, HSTROPN #### [facility] [address] [place] [address] Dr. Fabrizio PascualGlucose [Mass/Vol]103 mg/tWBxujiy48-088Kvw [facility] Comment on above:Performed By: #### BNP, BMP, HSTROPN #### [facility] [address] [place] [address] Dr. Fabrizio PascualPotassium [Moles/Vol]3.5 mmol/LNormal3.5-5.1The [facility] Comment on above:Performed By: #### BNP, BMP, HSTROPN #### [facility] [address] [place] [address] Dr. Fabrizio PascualSodium [Moles/Vol]129 mmol/LCritically mko928-006Czv [facility] CampusComment on above:Performed By: #### BNP, BMP, HSTROPN #### [facility] [address] [place] [address] Dr. Fabrizio PascualUrea nitrogen [Mass/Vol]15.0 mg/dLNormal7.0-18.0The [facility] CampusComment on above:Performed By: #### BNP, BMP, HSTROPN #### [facility] [address] [place] [address] Dr. Fabrizio Cabrera nitrogen/Creatinine [Mass ratio]13.8 mg/mgNormalThe [facility] CampusComment on above:Performed By: #### BNP, BMP, HSTROPN #### [facility] [address] [place] [address] Dr. Fabrizio Hankins, HIGH SENSITIVITYon 62-90-1473UQUVOE7.5 pg/mLNormal 4.0-76.1[facility] CenterComment on above:Result Comment: CUT-OFF POINTS HAVE BEEN ESTABLISHED BASED ON THE FOURTH UNIVERSAL DEFINITIONS OF MYOCARDIAL INFARCTION. THE UPPER REFERENCE LIMIT (URL) OF TROPONIN, DEFINED THE 99TH PERCENTILE OF cTnI DISTRIBUTION IN A REFERENCE POPULATION, HAS BEEN CONFIRMED THE DECISION THRESHOLD FOR DC DIAGNOSIS.Performed By: #### BNP, BMP, HSTROPN #### [facility] [address] [place], [place] [address] Dr. Fabrizio PascualXR CHEST 1 Von [id number] CHEST 1 VEXAM: XR CHEST 1 V [...] Electronically authenticated by: JAYDEN VALENTINE Date: 2022-04-19 17:36[facility] HospitalMRI BRAIN WO W CONon [id number] BRAIN WO W CONEXAMINATION: MRI BRAIN WO [...] Electronically authenticated by: CORINNE OCHOA Date: 2021-12-14 06:55NoWadsworth-Rittman HospitalCT CHEST WO CONon [id number] CHEST WO CONEXAMINATION: CT CHEST WO CON [...] Electronically authenticated by: CORINNE OCHOA Date: 2021-12-13 18:10[facility] HospitalOSMOLALITYon [id number] [Osmolality]275 mosm/kg Critically mpr224-681ScrUniversity Hospitals Geneva Medical CenterComment on above:Performed By: #### OSMO #### [facility] [address] [place] [address] Dr. Fbarizio Peña 14-84-2678Xmqenobv2.2 ug/dLNormalThe [facility] Comment on above:Result Comment: Cortisol AM 6.2 - 19.4 Cortisol PM 2.3 - 11.9Performed By: #### URIC, BMP, TSH #### [facility] [address] [place] [address] Dr. Fabrizio PascualOSMOLALITY URINEon 58-86-3864Isigcwqerd, Cvajq354 mOsmol/kgNormal The [facility] CampusComment on above:Result Comment: 24 hr : 300 - 900 Random: 50 - 1400 After 12hr fluid restriction: >850Performed By: #### URIC, BMP, TSH #### [facility] [address] [address] [address] Fabrizio PascualPROF CHEM 8 (BAS METB)on 94-02-8153Ucaiq gap [Moles/Vol]10.1 mmol/LNormalUniversity Hospitals Geneva Medical CenterComment on above:Performed By: #### URIC, BMP, TSH #### [facility] [address] [place] [address] Dr. Fabrizio PascualCalcium [Mass/Vol]8.8 mg/dLNormal8.5-10.1[facility] Comment on above:Performed By: #### URIC, BMP, TSH #### [facility] [address] [place] [address] Dr. Fabrizio PascualChloride [Moles/Vol]97 mmol/LCritically pqs22-880VvpUniversity Hospitals Geneva Medical CenterComment on above:Performed By: #### URIC, BMP, TSH #### [facility] [address] [place] [address] Dr. Fabrizio PascualCO2 [Moles/Vol]28.9 mmol/QTaszrq67.0-32.0[facility] Comment on above:Performed By: #### URIC, BMP, TSH #### [facility] [address] [place] [address] Dr. Fabrizio PascualCreatinine [Mass/Vol]1.08 mg/dLNormal0.70-1.30The [facility] CampusComment on above:Performed By: #### URIC, BMP, TSH #### [facility] [address] [address] [address] Fabrizio JohnsonGFR-AF CAPE VERDEAN>60Normal>=60The [facility] CampusComment on above:Performed By: #### URIC, BMP, TSH #### [facility] [address] [address] [address] Fabrizio JohnsonGFR-NON AF CAPE VERDEAN>60Normal>=60The [facility] CampusComment on above:Performed By: #### URIC, BMP, TSH #### [facility] [address] [place] [address] Dr. Fabrizio PascualGlucose [Mass/Vol]106 mg/xQGfypcq53-656Psx [facility] Comment on above:Performed By: #### URIC, BMP, TSH #### [facility] [address] [place] [address] Dr. Fabrizio PascualPotassium [Moles/Vol]4.0 mmol/LNormal3.5-5.1The [facility] Comment on above:Performed By: #### URIC, BMP, TSH #### [facility] [address] [address] [address] Fabrizio PascualSodium [Moles/Vol]132 mmol/LCritically yfx607-644Evd [facility] CampusComment on above:Performed By: #### URIC, BMP, TSH #### [facility] [address] [place] [address] Dr. Fabrizio PascualUrea nitrogen [Mass/Vol]18.0 mg/dLNormal7.0-18.0The [facility] CampusComment on above:Performed By: #### URIC, BMP, TSH #### [facility] [address] [place] [address] Dr. Fabrizio Cabrera nitrogen/Creatinine [Mass ratio]16.7 mg/mgNormalThe [facility] CampusComment on above:Performed By: #### URIC, BMP, TSH #### [facility] [address] [place] [address] Dr. Fabrizio OlveraDIUM RANDOM URINEon 09-64-5319Vygegh (U) [Moles/Vol]82 mmol/L Pjyvqm28-93Loz [facility] CampusComment on above:Performed By: #### BNP, BMP, HSTROPN #### [facility] [address] [address] [address] Fabrizio Parmar 86-79-6916AXL8.576 uIU/mLNormal0.358-3.740The [facility] CampusComment on above:Performed By: #### URIC, BMP, TSH #### [facility] [address] [place] [address] Dr. Fabrizio PascualURIC ACID SERUMon 08-66-5810Kutos [Mass/Vol]7.2 mg/dLNormal 3.5-7.2The [facility] CampusComment on above:Performed By: #### URIC, BMP, TSH #### [facility] [address] [place] [address] Dr. Fabrizio PascualPROF CHEM 8 (BAS METB)on 79-61-2119Xmwyl gap [Moles/Vol]14.8 mmol/LNormalThe [facility] CampusComment on above:Performed By: #### URIC, BMP, TSH #### [facility] [address] [place] [address] Dr. Fabrizio PascualCalcium [Mass/Vol]9.1 mg/dLNormal8.5-10.1The [facility] Comment on above:Performed By: #### URIC, BMP, TSH #### [facility] [address] [place] [address] Dr. Fabrizio PascualChloride [Moles/Vol]91 mmol/LCritically cnj16-199Olg [facility] CampusComment on above:Performed By: #### URIC, BMP, TSH #### [facility] [address] [place] [address] Dr. Fabrizio PascualCO2 [Moles/Vol]22.2 mmol/FGjrzwy61.0-32.0The [facility] Comment on above:Performed By: #### URIC, BMP, TSH #### [facility] [address] [place] [address] Dr. Fabrizio PascualCreatinine [Mass/Vol]0.97 mg/dLNormal0.70-1.30The [facility] CampusComment on above:Performed By: #### URIC, BMP, TSH #### [facility] [address] [place] [address] Dr. Fabrizio JohnsonGFR-AF CAPE VERDEAN>60Normal>=60The [facility] CampusComment on above:Performed By: #### URIC, BMP, TSH #### [facility] [address] [address] [address] Fabrizio JohnsonGFR-NON AF CAPE VERDEAN>60Normal>=60The [facility] CampusComment on above:Performed By: #### URIC, BMP, TSH #### [facility] [address] [place] [address] Dr. Fabrizio PascualGlucose [Mass/Vol]144 mg/dLCritically hxxk13-974Aff [facility] CampusComment on above:Performed By: #### URIC, BMP, TSH #### [facility] [address] [place] [address] Dr. Fabrizio PascualPotassium [Moles/Vol]4.0 mmol/LNormal3.5-5.1The [facility] Comment on above:Performed By: #### URIC, BMP, TSH #### [facility] [address] [place] [address] Dr. Fabrizio Olveradium [Moles/Vol]124 mmol/LCritically vpt673-610Afn [facility] Hospitalment on above:Performed By: #### URIC, BMP, TSH #### [facility] [address] [place] [address] Dr. Fabrizio PascualUrea nitrogen [Mass/Vol]18.0 mg/dLNormal7.0-18.0The [facility] CampusComment on above:Performed By: #### URIC, BMP, TSH #### [facility] [address] [place] [address] Dr. Fabrizio Cabrera nitrogen/Creatinine [Mass ratio]18.6 mg/mgNormalThe [facility] CampusComment on above:Performed By: #### URIC, BMP, TSH #### [facility] [address] [place] [address] Dr. Fabrizio Myers 61-31-8201Rhfoorsrbtv peptide B (Bld) [Mass/Vol]1143.0 pg/mLCritically high<=900.0The [facility] CampusComment on above:Performed By: #### URIC, BMP, TSH #### [facility] [address] [address] [address] Fabrizio Zafar W MANUAL DIFFon [id number] LYMPH #NormalThe [facility] CampusComment on above:Performed By: #### URIC, BMP, TSH #### [facility] [address] [address] [address] Fabrizio AndradeYPICAL LYMPH %NormalThe [facility] CampusComment on above: Performed By: #### URIC, BMP, TSH #### [facility] [address] [place] [address] Dr. Fabrizio Crowder #0.0 103/ulNormal0.0-0.3The [facility] CampusComment on above:Performed By: #### URIC, BMP, TSH #### [facility] [address] [place] [address] Dr. Fabrizio Crowder %0 %Normal0-5The [facility] CampusComment on above:Performed By: #### URIC, BMP, TSH #### [facility] [address] [place] [address] Dr. Fabrizio Nichols #0.00 103/ulNormal0.00-0.10The [facility] CampusComment on above:Performed By: #### URIC, BMP, TSH #### [facility] [address] [place] [address] Dr. Fabrizio Nichols %0.0 %Critically low0.2-2.0The [facility] CampusComment on above:Performed By: #### URIC, BMP, TSH #### [facility] [address] [place] [address] Dr. Fabrizio Prado #NormalThe [facility] HospitalComment on above:Performed By: #### URIC, BMP, TSH #### [facility] [facility] [address] [place] [address] Dr. Fabrizio PascualBLAST %NormalThe [facility] CampusComment on above:Performed By: #### URIC, BMP, TSH #### [facility] [address] [place] [address] Dr. Fabrizio PascualCORRECTED WBCNormal4.0-11.0The [facility] CampusComment on above: Performed By: #### URIC, BMP, TSH #### [facility] [address] [place] [address] Dr. Fabrizio Cedillo #0.24 103/ulNormal0.00-0.70The [facility] CampusComment on above:Performed By: #### URIC, BMP, TSH #### [facility] [address] [place] [address] Dr. Fabrizio Cedillo%2.0 %Normal0.9-7.0The [facility] CampusComment on above: Performed By: #### URIC, BMP, TSH #### [facility] [address] [place] [address] Dr. Fabrizio PascualHCT37.1 %Critically low42.0-54.0The [facility] CampusComment on above:Performed By: #### URIC, BMP, TSH #### [facility] [address] [place] [address] Dr. Fabrizio PascualHGB12.3 g/dlCritically low14.0-18.0The [facility] CampusComment on above:Performed By: #### URIC, BMP, TSH #### [facility] [address] [place] [address] Dr. Fabrizio Abdullahi #0.60 103/ulCritically low1.20-3.80The [facility] Comment on above:Performed By: #### URIC, BMP, TSH #### [facility] [address] [place] [address] Dr. Fabrizio Abdullahi%5.0 %Critically low20.5-60.0The [facility] CampusComment on above:Performed By: #### URIC, BMP, TSH #### [facility] [address] [place] [address] Dr. Fabrizio RamosH29.3 fyNnbivm12.9-34.0The [facility] CampusComment on above: Performed By: #### URIC, BMP, TSH #### [facility] [address] [place] [address] Dr. Fabrizio RamosHC33.2 g/iuQublnj97.9-35.2The [facility] HospitalComment on above:Performed By: #### URIC, BMP, TSH #### [facility] [address] [place] [address] Dr. Fabrizio RamosV88.3 bWOljamk03.0-94.0The [facility] CampusComment on above: Performed By: #### URIC, BMP, TSH #### [facility] [address] [place] [address] Dr. Fabrizio RickettsOCYTE #NormalThe [facility] CampusComment on above: Performed By: #### URIC, BMP, TSH #### [facility] [address] [place] [address] Dr. Fabrizio RickettsOCYTE %NormalThe [facility] CampusComment on above: Performed By: #### URIC, BMP, TSH #### [facility] [address] [place] [address] Dr. Fabrizio Landis#0.60 103/ulNormal0.30-0.80The [facility] CampusComment on above:Performed By: #### URIC, BMP, TSH #### [facility] [address] [place] [address] Dr. Fabrizio Landis%5.0 %Normal1.7-12.0The [facility] CampusComment on above: Performed By: #### URIC, BMP, TSH #### [facility] [address] [place] [address] Dr. Fabrizio Motta9.2 fLCritically low9.5-13.5The [facility] CampusComment on above:Performed By: #### URIC, BMP, TSH #### [facility] [address] [place] [address] Dr. Fabrizio Quiñonez #NormalThe [facility] HospitalComment on above:Performed By: #### URIC, BMP, TSH #### [facility] [address] [address] [address] Fabrizio AnthonyOCYTE %NormalThe [facility] Hospitalment on above:Performed By: #### URIC, BMP, TSH #### [facility] [address] [address] [address] Fabrizio SouzaBCNormalThe [facility] CampusComment on above:Performed By: #### URIC, BMP, TSH #### [facility] [address] [address] [address] Fabrizio SquiresT227 103/yyJtwpri592-599Dak [facility] Hospitalment on above: Performed By: #### URIC, BMP, TSH #### [facility] [address] [address] [address] Fabrizio ManningC4.20 106/ulCritically low4.70-6.10The [facility] CampusCommackinac stra[facility] on above:Performed By: #### URIC, BMP, TSH #### [facility] [address] [address] [address] Fabrizio GreenW14.0 %Fgyekm38.0-15.0The [facility] on above: Performed By: #### URIC, BMP, TSH #### [facility] [address] [address] [address] Fabrizio Pardo #10.65 103/ulCritically high1.40-6.50The [facility] Comment on above:Performed By: #### URIC, BMP, TSH #### [facility] [address] [address] [address] Fabrizio Pardo %88.0 %Critically high43.0-75.0The [facility] on above:Performed By: #### URIC, BMP, TSH #### [facility] [address] [address] [address] Fabrizio RayaBC12.1 103/ulCritically high4.0-11.0The [facility] Hospitalment on above:Performed By: #### URIC, BMP, TSH #### [facility] [address] [place] [address] Dr. Fabrizio Ornelas BLOODon [id number] examination of blood, cultureCulture Observations: NO GROWTH AT 5 DAYS.NormalThe [facility] CampusComment on above:Performed By: #### URIC, BMP, TSH #### [facility] [address] [place] [address] Dr. Fabrizio PascualMicroscopic examination of blood, cultureCulture Observations: NO GROWTH AT 5 DAYS.NormalThe [facility] CampusComment on above:Performed By: #### URIC, BMP, TSH #### [facility] [address] [place] [address] Dr. Fabrizio PascualCovid-19 PCR ([facility])on [id number]-CoV-2 (COVID-19) RNA HOWIE+probe Ql (Unsp spec)Not detectedNormalNOT DETECTEDThe [facility] Comment on above:Result Comment: When diagnostic testing [...] for this test is supported by the Aviation Medicine Specialist of Health and Human Service's declaration that [...] used).Performed By: #### URIC, BMP, TSH #### [facility] [address] [place] [address] Dr. Fabrizio PascualLACTATE/LACTIC ACIDon [id number] [Moles/Vol]1.2 mmol/L Normal0.4-1.9The [facility] CampusComment on above:Performed By: #### BNP, BMP, HSTROPN #### [facility] [address] [place] [address] Dr. Fabrizio FayF CHEM 8 (BAS METB)on [id number] gap [Moles/Vol]13.7 mmol/LNormalThe [facility] CampusComment on above:Performed By: #### URIC, BMP, TSH #### [facility] [address] [place] [address] Dr. Fabrizio PascualCalcium [Mass/Vol]8.8 mg/dLNormal8.5-10.1The [facility] Comment on above:Performed By: #### URIC, BMP, TSH #### [facility] [address] [place] [address] Dr. Fabrizio PascualChloride [Moles/Vol]91 mmol/LCritically wuw98-255Tag [facility] CampusComment on above:Performed By: #### URIC, BMP, TSH #### [facility] [address] [place] [address] Dr. Fabrizio PascualCO2 [Moles/Vol]25.0 mmol/ZNmsvjr03.0-32.0The [facility] Comment on above:Performed By: #### URIC, BMP, TSH #### [facility] [address] [place] [address] Dr. Fabrizio PascualCreatinine [Mass/Vol]0.97 mg/dLNormal0.70-1.30The [facility] CampusComment on above:Performed By: #### URIC, BMP, TSH #### [facility] [address] [place] [address] Dr. Fabrizio JohnsonGFR-AF CAPE VERDEAN>60Normal>=60The [facility] CampusComment on above:Performed By: #### URIC, BMP, TSH #### [facility] [address] [place] [address] Dr. Fabrizio JohnsonGFR-NON AF CAP[place] VERDEAN>60Normal>=60The [facility] CampusComment on above:Performed By: #### URIC, BMP, TSH #### [facility] [address] [place] [address] Dr. Fabrizio PascualGlucose [Mass/Vol]85 mg/eZGhrpzc55-527Pmh [facility] Comment on above:Performed By: #### URIC BMP, TSH #### [facility] [address] [address] [address] Fabrizio PascualPotassium [Moles/Vol]3.7 mmol/LNormal3.5-5.1The [facility] Comment on above:Performed By: #### URIC, BMP, TSH #### [facility] [address] [address] [address] Fabrizio PascualSodium [Moles/Vol]126 mmol/LCritically fcy090-042Gng [facility] CampusComment on above:Performed By: #### URIC, BMP, TSH #### [facility] [address] [place] [address] Dr. Fabrizio PascualUrea nitrogen [Mass/Vol]12.0 mg/dLNormal7.0-18.0The [facility] CampusComment on above:Performed By: #### URIC BMP, TSH #### [facility] [address] [address] [address] Fabrizio Cabrera nitrogen/Creatinine [Mass ratio]12.4 mg/mgNormalThe [facility] CampusComment on above:Performed By: #### URIC BMP, TSH #### [facility] [address] [place] [address] Dr. Fabrizio Hankins, HIGH SENSITIVITYon 74-23-5288JXIKZY2.6 pg/mLNormal 4.0-76.1The [facility] CampusComment on above:Result Comment: CUT-OFF POINTS HAVE BEEN ESTABLISHED BASED ON THE FOURTH UNIVERSAL DEFINITIONS OF MYOCARDIAL INFARCTION. THE UPPER REFERENCE LIMIT (URL) OF TROPONIN, DEFINED THE 99TH PERCENTILE OF cTnI DISTRIBUTION IN A REFERENCE POPULATION, HAS BEEN CONFIRMED THE DECISION THRESHOLD FOR DC DIAGNOSIS.Performed By: #### URIC, BMP, TSH #### [facility] [address] [place] [address] Dr. Fabrizio PascualXR CHEST 1 Von [id number] CHEST 1 VEXAM: XR CHEST 1 V. [...] Electronically authenticated by: DECLAN TRIPLETT Date: 2021-11-15 19:25[facility]19 Positive/NegativeOrdered By: Gregg Hilliard on 10-22-2021 SARS-CoV-2 (COVID-19) N gene HOWIE+probe Ql (Resp)NegativeNegativeMiddletown HospitalComment on above:Testing for SARS-CoV-2 by RT-PCR This test was developed and its performance characteristics determined by [employer] ([place]) and validated at the [facility]. This test has not been FDA [...] is terminated or revoked sooner.Office Visit (Cardiology)on [id number]-up visit Diagnoses/Problems Assessed Non-ischemic cardiomyopathy (425.4) (I42.8) [...] negative for complaint. Vitals Vital Signs Recorded: [id number] 02:51PM Heart Rate77, L Radial Idwcysah349, LUE, Sitting Bgxayhvag93, LUE, Sitting Height6 ft Mhszdt210 lb BMI Rqczhwjlpu09.87 kg/m2 BSA Calculated2.02 Tobacco Useb) No Fall [...] MD; Apr 29 2021 5:34PM EST (Author) [facility] TouchworksTobacco Screening.on 09-29-2896Lldz risk assessmenta) No falls within the last yearMP-[facility] [address] DO Work Phone: Tobacco use status CPHSb) NoMP-[facility] [address] DO Work Phone: MRI IAC WO/Won [id number] IAC WO/WMRN: [id number] Patient Name: MARY MCADAMS STUDY: MRI IAC WO/W; 12/21/2018 2:15 pm INDICATION: CPA lesion. COMPARISON: None. ACCESSION NUMBER(S): [id number] ORDERING CLINICIAN: ERIN BAUTISTA TECHNIQUE: T2, FLAIR, [...] abnormality. Electronically signed by: PASHA DEGROOT MD, PHDNew Ulm Medical Center Vital Signs Date TimeVital SignValuePerforming [id number] 16:00-0400Inhaled oxygen flow rate3 L/minBenjamin Ball DO Work Phone: 1419)[address] [place], [place] 5578510-08-2025 12:05-0400 Heart rate79 /minBenjamin Ball DO Work Phone: 1(419)[address] [place], [place] 5578510-08-2025 12:05-0400 Respiratory rate20 /minBenjamin Ball DO Work Phone: 1(419)[address] [place], [place] 5578510-08-2025 09:45-0400 Body umzkhzoryem03 [degF]Adam Ball DO Work Phone: 1419)[address] [place], [place] 5578510-08-2025 09:45-0400 Diastolic blood xacvvhct61 mm[Hg]Adam Ball DO Work Phone: 1(419)[address] [place], [place] 5578510-08-2025 09:45-0400 SaO2% (BldA) [Mass fraction]100 %Adam Ball DO Work Phone: 1(419)[address] [place], [place] 5578510-08-2025 09:45-0400 Systolic blood drlhvuen964 mm[Hg]Adam Ball DO Work Phone: 1419)[address] [place], [place] 5578510-08-2025 06:04-0400 Body mfveyh21.4 kgBenjamin Ball DO Work Phone: 1419)[address] [place], [place] 5578510-06-2025 15:07-0400 Body .88 cmBenjamin Ball DO Work Phone: 1419)[address] [place], [place] 5578510-05-2025 02:38-0400 Diastolic blood gufwbtqc10 mm[Hg]Adam Ball DO Work Phone: 1419)[address] [place], [place] 5578510-05-2025 02:38-0400 Heart rate87 /minBenjamin Ball DO Work Phone: 1419)[address] [place], [place] 5578510-05-2025 02:38-0400 Inhaled oxygen flow rate3 L/minBenjamin Ball DO Work Phone: 1419)[address] [place], [place] 5578510-05-2025 02:38-0400 Respiratory rate22 /minBenjamin Ball DO Work Phone: 1419)[address] [place], [place] 5578510-05-2025 02:38-0400 SaO2% (BldA) [Mass fraction]100 %Adam Ball DO Work Phone: 1(419)[address] [place], [place] 5578510-05-2025 02:38-0400 Systolic blood gkprniiy837 mm[Hg]Adam Ball DO Work Phone: 1419)[address] [place], [place] 5578510-05-2025 01:45-0400 Body prbmdtroxgn37.6 [degF]Adam Ball DO Work Phone: 1419)[address] [place], [place] 5578510-04-2025 21:09-0400 Body fomxdv838.88 cmBenjamin Ball DO Work Phone: 1(419)[address] [place], [place] 5578510-04-2025 21:09-0400 Body uxktgh03.3 kgBenjamin Ball DO Work Phone: 1(419)[address] [place], [place] 5578509-09-2025 13:15-0400 Body fopngv352.88 cmBenjamin Ball DO Work Phone: 1419)[address] [place], [place] 5578509-09-2025 13:15-0400 Body mass index (BMI) [Ratio]18.4 kg/s0Dxwlcrmo Ball DO Work Phone: 1(419)[address] [place], [place] 5578509-09-2025 13:15-0400 Body .68 kgBenjamin Ball DO Work Phone: 1419)[address] [place], [place] 5578509-09-2025 13:15-0400 Diastolic blood tzokyjwm62 mm[Hg]Adam Ball DO Work Phone: 1419)[address] [place], [place] 5578509-09-2025 13:15-0400 Heart rate92 /minBenjamin Ball DO Work Phone: 1419)[address] [place], [place] 5578509-09-2025 13:15-0400 Respiratory rate20 /minBenjamin Ball DO Work Phone: [facility]09-09-2025 13:15-0400 SaO2% (BldA) [Mass fraction]97 %Adam Ball DO Work Phone: [facility]09-09-2025 13:15-0400 Systolic blood cmqigxes542 mm[Hg]Adam Del Valle DO Work Phone: [facility]09-05-2025 11:12-0400 Body mctykq474.9 cmMaya Fuentes [facility]09-05-2025 11:12-0400Body mass index (BMI) [Ratio]18.58 kg/w4JmznvbMaya Fuentes [facility]09-05-2025 11:12-0400Body nqaqkk20.14 kgMaya Gut[facility]rezAv[facility]09-05-2025 11:12-0400Diastolic blood wusqptck08 mm[Hg]Maya Fuentes [facility]09-05-2025 11:12-0400 Heart rate92 /Nida Fuentes [facility]09-05-2025 11:12-0400Systolic blood kwperdoq79 mm[Hg]Maya Fuentes [facility]09-03-2025 08:48-0400Body osygoa578.9 cmNing Godoy ELEMENTARY PRINCIPAL-PALEONTOLOGY TEACHER Work Phone: [facility]09-03-2025 08:48-0400 Diastolic blood odwwwynd33 mm[Hg]Ning Godoy ELEMENTARY PRINCIPAL-PALEONTOLOGY TEACHER Work Phone: [facility]09-03-2025 08:48-0400 Heart rate91 /Danita Godoy ELEMENTARY PRINCIPAL-PALEONTOLOGY TEACHER Work Phone: [facility]09-03-2025 08:48-0400 Systolic blood afmvszya42 mm[Hg]Ning Godoy ELEMENTARY PRINCIPAL-PALEONTOLOGY TEACHER Work Phone: [facility]08-28-2025 16:00-0400 Body dbsizqaqyom75.6 [degF]Adam Ball DO Work Phone: 1(652)[address] [place], [place] 5578508-28-2025 16:00-0400 Diastolic blood pdzoielg11 mm[Hg]Adam Ball DO Work Phone: 1(446)[address] [place], [place] 5578508-28-2025 16:00-0400 Heart rate98 /minBenjamin Ball DO Work Phone: 1(659)[address] [place], [place] 5578508-28-2025 16:00-0400 Inhaled oxygen flow rate3 L/minBenjamin Ball DO Work Phone: 1(392)[address] [place], [place] 5578508-28-2025 16:00-0400 Respiratory rate18 /minBenjamin Ball DO Work Phone: 1(092)[address] [place], [place] 5578508-28-2025 16:00-0400 SaO2% (BldA) [Mass fraction]97 %Adam Ball DO Work Phone: 1(530)[address] [place], [place] 5578508-28-2025 16:00-0400 Systolic blood gzsoojvm650 mm[Hg]Adam Ball DO Work Phone: 1(802)[address] [place], [place] 5578508-28-2025 05:58-0400 Body mbyzpn71.2 kgBenjamin Ball DO Work Phone: 1(313)[address] [place], [place] 5578508-25-2025 14:20-0400 Body tzuold358.88 cmBenjamin Ball DO Work Phone: 1(268)[address] [place], [place] 5578508-24-2025 14:00-0400 Diastolic blood urcndkeh67 mm[Hg]Adam Ball DO Work Phone: 1(231)[address] [place], [place] 5578508-24-2025 14:00-0400 Heart rate85 /minBenjamin Ball DO Work Phone: 1(415)[address] [place], [place] 5578508-24-2025 14:00-0400 Inhaled oxygen flow rate4 L/minBenjamin Ball DO Work Phone: 1(804)[address] [place], [place] 5578508-24-2025 14:00-0400 Respiratory rate20 /minBenjamin Ball DO Work Phone: 1(419)[address] [place], [place] 5578508-24-2025 14:00-0400 SaO2% (BldA) [Mass fraction]100 %Adam Ball DO Work Phone: 1(419)[address] [place], [place] 5578508-24-2025 14:00-0400 Systolic blood jquonayc176 mm[Hg]Adam Ball DO Work Phone: 1(419)[address] [place], [place] 5578508-24-2025 11:18-0400 Inhaled oxygen gxuxjdayaevkw43 %Adam Ball DO Work Phone: 1(419)[address] [place], [place] 5578508-24-2025 01:00-0400 Inhaled oxygen xnrfmafibrxpt78 %Adam Ball DO Work Phone: 1(419)[address] [place], [place] 5578508-23-2025 22:04-0400 Body cbpcya330.88 cmBenjamin Ball DO Work Phone: 1(419)[address] [place], [place] 5578508-23-2025 22:04-0400 Body qyhelnuvwpo89.3 [degF]Adam Ball DO Work Phone: 1(419)[address] [place], [place] 5578508-23-2025 22:04-0400 Body kgBenjamin Ball DO Work Phone: 1419)[address] [place], [place] 5578507-08-2025 08:58-0400 Body ixaqcw353.88 cmBenjamin Ball DO Work Phone: 1419)[address] [place], [place] 5578507-08-2025 08:58-0400 Body mass index (BMI) [Ratio]18.3 kg/s2Ibuaeqbw Ball DO Work Phone: 1(419)[address] [place], [place] 5578507-08-2025 08:58-0400 Body bvmzia48.34 kgBenjamin Ball DO Work Phone: 1(419)[address] [place], [place] 5578507-08-2025 08:58-0400 Diastolic blood mm[Hg]Adam Ball DO Work Phone: 1(419)[address] [place], [place] 5578507-08-2025 08:58-0400 Heart rate98 /minBenjamin Ball DO Work Phone: 1(419)483-29[facility]07-08-2025 08:58-0400 Respiratory rate14 /minBenjamin Ball DO Work Phone: 1(372)879-[address] [place], [place] 6009307-08-2025 08:58-0400 SaO2% (BldA) [Mass fraction]99 %Adam Ball DO Work Phone: 1(273)504-[address] [place], [place] 6009307-08-2025 08:58-0400 Systolic blood qjujvnwp654 mm[Hg]Adam Ball DO Work Phone: 1(502)226-[address] [place], [place] 6009307-01-2025 16:00-0400 Diastolic blood biytzmnh40 mm[Hg]Adam Ball DO Work Phone: 1(880)[address]07-01-2025 16:00-0400 Heart vsum868 /minBenjamin Ball DO Work Phone: 1(709)[address]07-01-2025 16:00-0400 Inhaled oxygen flow rate2 L/minBenjamin Ball DO Work Phone: 1(939)[address]07-01-2025 16:00-0400 Respiratory rate18 /minBenjamin Ball DO Work Phone: 1(277)286-[address] [place], [place] 6009307-01-2025 16:00-0400 SaO2% (BldA) [Mass fraction]100 %Adam Ball DO Work Phone: 1(283)526-[address] [place], [place] 6009307-01-2025 16:00-0400 Systolic blood gdukdbbf646 mm[Hg]Adam Ball DO Work Phone: 1(199)015-[address] [place], [place] 6009307-01-2025 07:54-0400 Body ommhjnbikij69.3 [degF]Adam Ball DO Work Phone: 1(898)[address]07-01-2025 06:00-0400 Body qkdazd59.8 kgBenjamin Ball DO Work Phone: 1(948)[address]06-30-2025 14:36-0400 Body .88 cmBenjamin Ball DO Work Phone: [facility]06-30-2025 03:30-0400 Diastolic blood mm[Hg]Adam Ball DO Work Phone: 1(554)892-[address] [place], [place] 6009306-30-2025 03:30-0400 Heart wlcz973 /minBenjamin Ball DO Work Phone: 1(085)[address]06-30-2025 03:30-0400 Inhaled oxygen flow rate2 L/minBenjamin Ball DO Work Phone: 1(095)[address]06-30-2025 03:30-0400 Respiratory rate24 /minBenjamin Ball DO Work Phone: 1(702)[address] [place], [place] 5578506-30-2025 03:30-0400 SaO2% (BldA) [Mass fraction]98 %Adam Ball DO Work Phone: 1(100)[address]06-30-2025 03:30-0400 Systolic blood mm[Hg]Adam Ball DO Work Phone: 1(697)[address]06-30-2025 02:37-0400 Body fxxckdubgbs17.6 [degF]Adam Ball DO Work Phone: 1(511)[address] [place], [place] 5578506-29-2025 22:44-0400 Body jpeops035.88 cmBenjamin Ball DO Work Phone: 1(494)[address] [place], [place] 5578506-29-2025 22:44-0400 Body igxpsy11.5 kgBenjamin Ball DO Work Phone: 1(787)[address]06-19-2025 11:23-0400 Body cvwhco089.4 cmShannon Gonzalez MD Work Phone: [facility]06-19-2025 11:23-0400 Body mass index (BMI) [Ratio]18.07 kg/n0FwqrhcShannon Gonzalez MD Work Phone: [facility]06-19-2025 11:23-0400 Body juopil37.14 kgShannon Gonzalez MD Work Phone: [facility]06-19-2025 11:23-0400 Diastolic blood gaatwesn33 mm[Hg]Shannon Gonzalez MD Work Phone: [facility]06-19-2025 11:23-0400 Heart rate88 /Deirdre Gonzalez MD Work Phone: [facility]06-19-2025 11:23-0400 Systolic blood ysplgurc679 mm[Hg]Shannon Gonzalez MD Work Phone: [facility]04-21-2025 14:55-0400 Body kvzohe975.88 cmBenjamin Ball DO Work Phone: 1(465)405-45[facility]04-21-2025 14:55-0400 Body mass index (BMI) [Ratio]18.8 kg/q3Ewfgvfeh Ball DO Work Phone: 1(059)641-[address] [place], [place] 6009304-21-2025 14:55-0400 Body pdkymw18.16 kgBenjamin Ball DO Work Phone: 1(308)267-41[facility]04-21-2025 14:55-0400 Diastolic blood qtzfeiat66 mm[Hg]Adam Ball DO Work Phone: 1(569)404-87[facility]04-21-2025 14:55-0400 Heart uqyy119 /minBenjamin Ball DO Work Phone: 1(660)494-92[facility]04-21-2025 14:55-0400 Respiratory rate12 /minBenjamin Ball DO Work Phone: 1(813)941-39[facility]04-21-2025 14:55-0400 SaO2% (BldA) [Mass fraction]94 %Adam Ball DO Work Phone: 1(641)548-24[facility]04-21-2025 14:55-0400 Systolic blood duepnujj799 mm[Hg]Adam Ball DO Work Phone: 1(332)373-87[facility]03-13-2025 10:08-0400 Body pzfvim587.4 cmJennifer [facility] 07-25-2024 10:08-0400Body mass index (BMI) [Ratio]18.6 kg/o9Pbakbknc [facility]03-13-2025 10:08-0400Body .96 kg Harriet [facility]03-13-2025 10:08-0400 Diastolic blood ekjyfwli40 mm[Hg][facility]03-13-2025 10:08-0400Heart demi859 /minHarriet [facility]03-13-2025 10:08-0400Systolic blood axvxmvnl728 mm[Hg] [facility]03-11-2025 16:49-0400Body .9 cmDennis Furlong DO Work Phone: [facility]03-11-2025 16:49-0400Body mass index (BMI) [Ratio]18.88 kg/f8Gxjfxo Furlong DO Work Phone: [facility]03-11-2025 16:49-0400Body knsxcizdksh92.7 [degF]Edward Furlong DO Work Phone: [facility]03-11-2025 16:49-0400Body ztagys48.14 kgDennis Furlong DO Work Phone: [facility]03-11-2025 16:49-0400Diastolic blood mxpyigmr70 mm[Hg]Edward Furlong DO Work Phone: [facility]03-11-2025 16:49-0400Heart rate 76 /minDennis Furlong DO Work Phone: [facility]03-11-2025 16:49-0400 Respiratory rate18 /minDennis Furlong DO Work Phone: [facility]03-11-2025 16:49-2409RmW3% (BldA) [Mass fraction]97 %Edward Furlong DO Work Phone: [facility] [employer] Bgbzxs09-59-9000 16:49-0400Systolic blood nzjsondy534 mm[Hg]Edward Furlong DO Work Phone: [facility]03-04-2025 15:02-0500Body idopvlfmbgt47.5 [degF]Edward Furlong DO Work Phone: [facility]03-04-2025 15:02-0500Body abrydz58.78 kgBullnis Furlong DO Work Phone: [facility]03-04-2025 15:02-0500Diastolic blood dzcyptjp39 mm[Hg]Edward Furlong DO Work Phone: [facility]03-04-2025 15:02-0500Heart rate 80 /minDgarryis Furlong DO Work Phone: [facility]03-04-2025 15:02-0500 Respiratory rate20 /minDennis Furlong DO Work Phone: [facility]03-04-2025 15:02-1121GrJ6% (BldA) [Mass fraction]94 %Edward Furlong DO Work Phone: [facility]03-04-2025 15:02-0500Systolic blood fqescclq03 mm[Hg]Edward Furlong DO Work Phone: [facility]03-03-2025 15:06-0500Body olvrpd103.88 cmBenjamin Ball DO Work Phone: [facility]03-03-2025 15:06-0500 Diastolic blood qjbsxutb64 mm[Hg]Adam Ball DO Work Phone: [facility]03-03-2025 15:06-0500 Heart rate85 /minBenjamin Ball DO Work Phone: [address] [place], [place] 2516803-03-2025 15:06-0500 Inhaled oxygen flow rate2 L/minBenjamin Ball DO Work Phone: [facility]03-03-2025 15:06-0500 Respiratory rate20 /minBenjamin Ball DO Work Phone: [facility]03-03-2025 15:06-0500 SaO2% (BldA) [Mass fraction]78 %Adam Ball DO Work Phone: [facility]03-03-2025 15:06-0500 Systolic blood gkpvkpil85 mm[Hg]Adam Ball DO Work Phone: [facility]02-26-2025 15:49-0500 Body fdsjuqfthki01.59 [degF]Edward Furlong DO Work Phone: [facility] [employer] Nrwlxr45-52-7513 15:49-0500Body vcqouf41.96 kgDennis Furlong DO Work Phone: [facility] [employer] Usqttz55-86-3368 15:49-0500Diastolic blood mm[Hg]Edward Furlong DO Work Phone: [facility] Mcodqg95-67-1273 15:49-0500Heart rate 84 /minDennis Furlong DO Work Phone: [facility] [employer] Bncvix77-12-5863 15:49-0500 Respiratory rate18 /minDennis Furlong DO Work Phone: [facility] Jserif95-62-2476 15:49-6864IuZ4% (BldA) [Mass fraction]97 %Edward Furlong DO Work Phone: [facility] Yaykin82-32-4878 15:49-0500Systolic blood ipgfezhi534 mm[Hg]Edward Furlong DO Work Phone: [facility] Bmgqrj88-49-2308 12:05-0500Heart rate 91 /minBenjamin Ball DO Work Phone: 1(447)939-[address] [place], [place] 6009302-25-2025 12:05-0500 Respiratory rate20 /minBenjamin Ball DO Work Phone: 1(256)[address] [place], [place] 5578502-25-2025 08:01-0500 Body snitnzvcwtn72.1 [degF]Adam Ball DO Work Phone: 1(006)[address] [place], [place] 5578502-25-2025 08:01-0500 Diastolic blood tqatdmuf19 mm[Hg]Adam Ball DO Work Phone: 1(301)[address]02-25-2025 08:01-0500 SaO2% (BldA) [Mass fraction]96 %Adam Ball DO Work Phone: 1(910)[address] [place], [place] 5578502-25-2025 08:01-0500 Systolic blood xjebecaq130 mm[Hg]Adam Ball DO Work Phone: 1(208)[address] [place], [place] 5578502-25-2025 05:36-0500 Body vgslyv24.9 kgBenjamin Ball DO Work Phone: 1(876)[address] [place], [place] 5578502-23-2025 17:38-0500 Inhaled oxygen flow rate2 L/minBenjamin Ball DO Work Phone: 1(420)[address] [place], [place] 5578502-20-2025 15:38-0500 Body gfewdq040.88 cmBenjamin Ball DO Work Phone: 1(317)[address] [place], [place] 5578502-19-2025 23:10-0500 Diastolic blood dywlynbz09 mm[Hg]Adam Ball DO Work Phone: 1(817)092-[address] [place], [place] 6009302-19-2025 23:10-0500 Heart rate94 /minBenjamin Ball DO Work Phone: 1(432)[address] [place], [place] 5578502-19-2025 23:10-0500 Respiratory rate18 /minBenjamin Ball DO Work Phone: 1(862)[facility] [place], [place] 6009302-19-2025 23:10-0500 SaO2% (BldA) [Mass fraction]97 %Adam Ball DO Work Phone: [facility]02-19-2025 23:10-0500 Systolic blood whznrwwu461 mm[Hg]Adam Ball DO Work Phone: 1(756)273-82[facility]02-19-2025 21:14-0500 Inhaled oxygen flow rate2 L/minBenjamin Ball DO Work Phone: 1(057)635-24[facility]02-19-2025 18:33-0500 Body pkzroq088.88 cmBenjamin Ball DO Work Phone: 1(262)179-39[facility]02-19-2025 18:33-0500 Body nnkcdclkjug13.7 [degF]Adam Ball DO Work Phone: 1(021)732-53[facility]02-19-2025 18:33-0500 Body qnzosx75.03 kgBenjamin Ball DO Work Phone: 1(060)890-68[facility]01-29-2025 13:35-0500 Diastolic blood lzvrqdei45 mm[Hg][facility] [address] [place] [address] 06-12-2024 13:35-0500Heart rate92 /minEly [address] [place] [address] 06-12-2024 13:35-0500Systolic blood oimcuqvm817 mm[Hg][address]01-20-2025 14:43-0500Body xhyhqx908.88 cmBenjamin Ball DO Work Phone: 1(393)583-81[facility]01-20-2025 14:43-0500 Body mass index (BMI) [Ratio]21.2 kg/z6Lnlaqkxx Ball DO Work Phone: 1(562)751-28[facility]01-20-2025 14:43-0500 Body .21 kgBenjamin Ball DO Work Phone: 1(441)628-35[facility]01-20-2025 14:43-0500 Diastolic blood bbacgcch69 mm[Hg]Adam Ball DO Work Phone: 1(011)303-91[facility]01-20-2025 14:43-0500 Heart rqbi808 /minBenjamin Ball DO Work Phone: [facility]01-20-2025 14:43-0500 Respiratory rate14 /minBenjamin Ball DO Work Phone: 1(624)481-42[facility]01-20-2025 14:43-0500 Systolic blood mnamuquu664 mm[Hg]Adam Ball DO Work Phone: 1(783)371-11[facility]01-10-2025 13:22-0500 Body zeiulf391.9 cmShannon Gonzalez MD Work Phone: 1(443)580-[address] [place], [place] 5493001-10-2025 13:22-0500 Body mass index (BMI) [Ratio]21.18 kg/h5RgaajiShannon Gonzalez MD Work Phone: 1(617)[address]01-10-2025 13:22-0500 Body .85 kgShannon Gonzalez MD Work Phone: 1(675)[address]01-10-2025 13:22-0500 Diastolic blood yaghwohd86 mm[Hg]Shannon Gonzalez MD Work Phone: 1(274)[address]01-10-2025 13:22-0500 Heart rate68 /Deirdre Gonzalez MD Work Phone: 1(460)[address]01-10-2025 13:22-0500 Systolic blood uzlzwibp36 mm[Hg]Shannon Gonzalez MD Work Phone: 4(093)[address]12-18-2024 11:40-0500 Body qjolwr560.88 cmBenjamin Ball DO Work Phone: [facility]12-18-2024 11:40-0500 Body mass index (BMI) [Ratio]21.7 kg/s7Uisukfyx Ball DO Work Phone: 1(288)015-20[facility]12-18-2024 11:40-0500 Body fosyfqxgdcm37.5 [degF]Adam Ball DO Work Phone: 1(002)157-11[facility]12-18-2024 11:40-0500 Body pgxhiz09.57 kgBenjamin Ball DO Work Phone: [facility]12-18-2024 11:40-0500 Diastolic blood gyqeyyrg24 mm[Hg]Adam Ball DO Work Phone: [facility]12-18-2024 11:40-0500 Heart rate46 /minBenjamin Ball DO Work Phone: [facility]12-18-2024 11:40-0500 SaO2% (BldA) [Mass fraction]90 %Adam Ball DO Work Phone: [facility]12-18-2024 11:40-0500 Systolic blood sqfvyqde34 mm[Hg]Adam Ball DO Work Phone: [facility]11-13-2024 15:22-0500 Body fyfldc871.9 cmShannon Gonzalez MD Work Phone: [facility]11-13-2024 15:22-0500 Body mass index (BMI) [Ratio]20.61 kg/g8AcqpxlShannon Gonzalez MD Work Phone: [facility]11-13-2024 15:22-0500 Body ovesuv82.95 kgShannon Gonzalez MD Work Phone: [facility]11-13-2024 15:22-0500 Diastolic blood diviqfcm57 mm[Hg]Shannon Gonzalez MD Work Phone: [address] [place], [place] 3073111-13-2024 15:22-0500 Heart rate71 /minShannon Gonzalez MD Work Phone: 1(938)437-[address] [place], [place] 5493011-13-2024 15:22-0500 Systolic blood hmkwyuzq946 mm[Hg]Shannon Gonzalez MD Work Phone: [address] [place], [place] 3073111-11-2024 14:13-0500 Body aashrx182.88 cmBenjamin Ball DO Work Phone: [facility]11-11-2024 14:13-0500 Body mass index (BMI) [Ratio]20.5 kg/b7Tfzuhtyk Ball DO Work Phone: 1(149)[address] [place], [place] 5578511-11-2024 14:13-0500 Body zxoofc98.71 kgBenjamin Ball DO Work Phone: 1(461)[address] [place], [place] 5578511-11-2024 14:13-0500 Diastolic blood vcuqywdc36 mm[Hg]Adam Ball DO Work Phone: 1(500)[address] [place], [place] 5578511-11-2024 14:13-0500 Heart rate86 /minBenjamin Ball DO Work Phone: 1(916)[address] [place], [place] 5578511-11-2024 14:13-0500 SaO2% (BldA) [Mass fraction]94 %Adam Ball DO Work Phone: 1(015)[address] [place], [place] 5578511-11-2024 14:13-0500 Systolic blood ioujuntf33 mm[Hg]Adam Ball DO Work Phone: 1(604)[address] [place], [place] 5578511-06-2024 14:50-0500 Body hzqyqb548.88 cmDO Adam Ball Work Phone: 1(065)[address] [place], [place] 5578511-06-2024 12:05-0500 Diastolic blood mm[Hg]DO Adam Ball Work Phone: 1(620)[address] [place], [place] 5578511-06-2024 12:05-0500 Systolic blood qosdoghd68 mm[Hg]DO Adam Ball Work Phone: 1(206)[address] [place], [place] 5578511-06-2024 12:00-0500 Body cgoybcpqilj38.7 [degF]DO Adam Ball Work Phone: 1(754)[address] [place], [place] 5578511-06-2024 12:00-0500 Heart rate71 /minDO Adam Ball Work Phone: 1(163)[address] [place], [place] 5578511-06-2024 12:00-0500 Inhaled oxygen flow rate2 L/minDO Adam Ball Work Phone: 1(840)[address] [place], [place] 5578511-06-2024 12:00-0500 Respiratory rate18 /minDO Adam Ball Work Phone: 1(705)[address] [place], [place] 5578511-06-2024 12:00-0500 SaO2% (BldA) [Mass fraction]100 %DO Adam Ball Work Phone: 1(239)[address]11-06-2024 06:00-0500 Body kgDO Adam Ball Work Phone: 1(092)[address] [place], [place] 5578510-25-2024 13:27-0400 Body ndbmle049.88 cmDO Adam Ball Work Phone: 1(604)[address] [place], [place] 5578510-25-2024 13:27-0400 Body mass index (BMI) [Ratio]21.9 kg/m2DO Adam Ball Work Phone: 1(092)[address] [place], [place] 5578510-25-2024 13:27-0400 Body afgrdi69.59 kgDO Adam Ball Work Phone: 1(173)[address] [place], [place] 5578510-25-2024 13:27-0400 Diastolic blood pzemityq95 mm[Hg]DO Adam Ball Work Phone: 1(325)[address] [place], [place] 5578510-25-2024 13:27-0400 Heart rate86 /minDO Adam Ball Work Phone: 1(370)[address] [place], [place] 5578510-25-2024 13:27-0400 Respiratory rate12 /minDO Adam Ball Work Phone: 1(076)[address] [place], [place] 5578510-25-2024 13:27-0400 SaO2% (BldA) [Mass fraction]92 %DO Adam Ball Work Phone: 1(478)[address] [place], [place] 5578510-25-2024 13:27-0400 Systolic blood mm[Hg]DO Adam Ball Work Phone: 1(679)[address] [place], [place] 5578510-18-2024 15:58-0400 Diastolic blood ysgvlkim14 mm[Hg]DO Adam Ball Work Phone: 1(575)[address] [place], [place] 5578510-18-2024 15:58-0400 Heart rate70 /minDO Adam Ball Work Phone: 1(359)[address] [place], [place] 5578510-18-2024 15:58-0400 Inhaled oxygen flow rate2 L/minDO Adam Ball Work Phone: 1(330)[address] [place], [place] 5578510-18-2024 15:58-0400 Respiratory rate20 /minDO Adam Ball Work Phone: 1(968)[address] [place], [place] 5578510-18-2024 15:58-0400 SaO2% (BldA) [Mass fraction]98 %DO Adam Ball Work Phone: 1419)[address] [place], [place] 5578510-18-2024 15:58-0400 Systolic blood mhdlyemr165 mm[Hg]DO Adam Ball Work Phone: 1(805)[address] [place], [place] 5578510-18-2024 15:25-0400 Body .88 cmDO Adam Ball Work Phone: 1(627)[address] [place], [place] 5578510-18-2024 09:11-0400 Body .8 [degF]DO Adam Ball Work Phone: 1(079)[address] [place], [place] 5578510-18-2024 05:30-0400 Body iorqxa22.4 kgDO Adam Ball Work Phone: 1(255)[address] [place], [place] 5578510-16-2024 23:38-0400 Inhaled oxygen flow rate2 L/minDO Adam Ball Work Phone: 1(105)[address] [place], [place] 5578510-16-2024 23:38-0400 Respiratory rate22 /minDO Adam Ball Work Phone: 1(823)[address] [place], [place] 5578510-16-2024 23:38-0400 SaO2% (BldA) [Mass fraction]94 %DO Adam Ball Work Phone: 1(613)[address] [place], [place] 5578510-16-2024 23:36-0400 Diastolic blood dvwbhirl43 mm[Hg]DO Adam Ball Work Phone: 1(018)[address] [place], [place] 5578510-16-2024 23:36-0400 Heart mhnd433 /minDO Adam Ball Work Phone: 1(599)[facility] [place], [place] 6009310-16-2024 23:36-0400 Systolic blood qvnijjxo769 mm[Hg]DO Adam Ball Work Phone: [facility]10-16-2024 21:46-0400 Body erohaa103.88 cmDO [employer]adm [employer] Work Phone: [facility]10-16-2024 21:46-0400 Body yoprhffggsq22.3 [degF]DO Adam Ball Work Phone: [facility]10-16-2024 21:46-0400 Body hndpab85.9 kgDO Adam Ball Work Phone: [facility]10-08-2024 14:22-0400 Body uzdxcg105.9 Mickeyning [facility] 02-20-2024 14:22-0400Body mass index (BMI) [Ratio]22.92 kg/h4GdwrnapW[facility]10-08-2024 14:220400Body pvmsxy46.66 kgAd[facility]10-08-2024 14:22-0400Diastolic blood jwjlpegy19 mm[Hg][facility] 02-20-2024 14:22-0400Heart flys042 /minSumma Health Akron Campusdory [facility]10-08-2024 14:22-0400Systolic blood mm[Hg][facility]10-02-2024 14:25-0400Body height 182.88 cmDO Adam [employer] Work Phone: [facility]10-02-2024 14:25-0400 Body mass index (BMI) [Ratio]23.1 kg/m2DO Adam [employer] Work Phone: [facility]10-02-2024 14:25-0400 Body kzupqx95.16 kgDO Adam [employer] Work Phone: [facility]10-02-2024 14:25-0400 Diastolic blood uaiaapdf64 mm[Hg]DO Adam Ball Work Phone: 1(419)483-[address] [place], [place] 6009310-02-2024 14:25-0400 Heart cwdj584 /minDO Adam Ball Work Phone: 1(218)152-[address] [place], [place] 6009310-02-2024 14:25-0400 Respiratory rate20 /minDO Adam Ball Work Phone: 1(562)704-[address] [place], [place] 6009310-02-2024 14:25-0400 Systolic blood iyvirsha933 mm[Hg]DO Adam Ball Work Phone: 1(529)[address]09-22-2024 16:00-0400 Inhaled oxygen flow rate2 L/minDO Adam Ball Work Phone: 1(972)[address]09-22-2024 13:35-0400 Heart rate86 /minDO Adam Ball Work Phone: 1(018)06[address]09-22-2024 13:35-0400 Respiratory rate18 /minDO Adam Ball Work Phone: 1(277)[address] [place], [place] 5578509-22-2024 12:40-0400 Body ewqeorhizuh24.5 [degF]DO Adam Ball Work Phone: 1(362)[address] [place], [place] 5578509-22-2024 12:40-0400 Diastolic blood fyetpdry53 mm[Hg]DO Adam Ball Work Phone: 1(643)[address]09-22-2024 12:40-0400 SaO2% (BldA) [Mass fraction]98 %DO Adam Ball Work Phone: 1(454)[address]09-22-2024 12:40-0400 Systolic blood ojltnrwb109 mm[Hg]DO Adam Ball Work Phone: 1(312)[address] [place], [place] 5578509-22-2024 05:54-0400 Body plupse11.3 kgDO Adam Ball Work Phone: 1(545)[address]09-20-2024 09:43-0400 Body vjgtem050.88 cmDO Adam Ball Work Phone: 1(740)[address]05-31-2024 13:35-0400 Body auuvew255.9 cmSteven Alvares MD Work Phone: [facility]05-31-2024 13:35-0400 Body mass index (BMI) [Ratio]23.06 kg/w7YjimaybSteven Alvares MD Work Phone: [facility]05-31-2024 13:35-0400 Body .11 kgSteven Alvares MD Work Phone: 1(970)339-[address] [place], [place] 5493005-31-2024 13:35-0400 Diastolic blood fmbbhxam80 mm[Hg]Steven Alvares MD Work Phone: 1(640)935-[address] [place], [place] 5493005-31-2024 13:35-0400 Heart rate72 /Cheryl Alvares MD Work Phone: [address] [place], [place] 3073105-31-2024 13:35-0400 Systolic blood gapegfrq907 mm[Hg]Steven Alvares MD Work Phone: 1(047)037-[address] [place], [place] 5493004-01-2024 15:21-0400 Blood Pressure LocationClinton NORMAN [facility]04-01-2024 15:21-0400Diastolic blood pkgifdbr15 mm[Hg]Clinton NORMAN [facility]04-01-2024 15:21-0400Heart rate80 /minPatricjulianna NORMAN [facility]04-01-2024 15:21-0400Respiratory rate16 /minPatrick EMERSON [facility]04-01-2024 15:21-0400Systolic blood brevzsvx885 mm[Hg]Clinton NORMAN [facility]10-18-2023 14:00-0400Body .88 cmBenjamin Ball Other [facility] [employer] Other 10-18-2023 14:00-0400Body mass index (BMI) [Ratio] 23.22 kg/p2Tuodrboc Ball Other [facility] [employer] Other 10-18-2023 14:00-0400Body vbnanx32.66 kgBenjamin Ball Other [facility] [employer] Other 10-18-2023 14:00-0400Diastolic blood hwapgnnj23 mm[Hg] Adam Ball Other [facility] [employer] Other 10-18-2023 14:00-0400Respiratory rate20 /minBenjamin Ball Other [facility] [employer] Other 10-18-2023 14:00-0400Systolic blood vouifent506 mm[Hg] Adam Ball [facility] [employer] Other 07-17-2023 13:10-0400Blood Pressure LocationPatrick NORMAN [facility]07-17-2023 13:10-0400Diastolic blood mm[Hg]Clinton NORMAN [facility]07-17-2023 13:10-0400Heart rate68 /minPatrick NORMAN [facility]07-17-2023 13:10-0400Respiratory rate16 /minPatrick NORMAN [facility] [place] [address]-17-2023 13:10-0400Systolic blood bckcthof257 mm[Hg]Clinton NORMAN [facility]04-20-2023 12:30-0400Body efpygu369.88 cmBenjamin Ball Other [employer] Other 04-20-2023 12:30-0400Body mass index (BMI) [Ratio] 22.97 kg/u0Iowomcdq Ball Other [employer] Other 04-20-2023 12:30-0400Body fhqyno92.84 kgBenjamin Ball Other [facility] [employer] Other 04-20-2023 12:30-0400Diastolic blood mm[Hg] Adam Ball Other [employer] Other 04-20-2023 12:30-0400Respiratory rate20 /minBenjamin Ball Other [employer] Other 04-20-2023 12:30-0400Systolic blood yujljmvo911 mm[Hg] Adam Ball Other [facility] [employer] Other [id number] 12:08-0400Blood Pressure LocationPatrick NORMAN [facility]10-03-2022 12:08-0400Diastolic blood hqrcpfyg06 mm[Hg]Clinton NORMAN [facility]10-03-2022 12:08-0400Heart rate80 /minPatrick [employer] [facility]10-03-2022 12:08-0400Respiratory rate16 /minPatrick [employer] [facility]10-03-2022 12:08-0400Systolic blood pyxgtxmm645 mm[Hg]Clinton NORMAN [facility]06-14-2022 11:23-0400Diastolic blood dvmonmjq41 mm[Hg]DO Adam Ball Work Phone: 1(847)928-98[facility]06-14-2022 11:23-0400 Heart rate62 /minDO Adam Ball Work Phone: 1(811)351-71[facility]06-14-2022 11:23-0400 Respiratory rate20 /minDO Adam Ball Work Phone: 1(389)678-70[facility]06-14-2022 11:23-0400 SaO2% (BldA) [Mass fraction]94 %DO Adam Ball Work Phone: 1(393)022-67[facility]06-14-2022 11:23-0400 Systolic blood pvikmfzz982 mm[Hg]DO Adam Ball Work Phone: 1(566)140-29[facility]06-14-2022 09:24-0400 Body duosss315.88 cmDO Adam Ball Work Phone: 1(204)615-41[facility]06-14-2022 09:24-0400 Body mass index (BMI) [Ratio]23.7 kg/m2DO Adam Ball Work Phone: 1(045)481-18[facility]06-14-2022 09:24-0400 Body swjcoulipap27.5 [degF]DO Adam Ball Work Phone: 1(494)128-88[facility]06-14-2022 09:24-0400 Body llyihg04.37 kgDO Adam Ball Work Phone: 5(309)632-43[facility]04-06-2022 12:15-0400 Body .88 Salina Muniz Other [employer] Other 04-06-2022 12:15-0400Body mass index (BMI) [Ratio] 24.27 kg/o7Tadjktynkgk Flavio Other [employer] Other 04-06-2022 12:15-0400Body qhstandihub27.2 [degF] Nick Muniz Other [employer] Other 04-06-2022 12:15-0400Body luykhe02.19 kgChaubrie Palaciodano Other [employer] Other 04-06-2022 12:15-0400Diastolic blood amnoqmfy20 mm[Hg] Nick Muniz Other [employer] Other 04-06-2022 12:15-0400Respiratory rate20 /min Nick Muniz Other [employer] Other 04-06-2022 12:15-7151DxX3% (BldA) [Mass fraction]99 % Nick Muniz Other [employer] Other 04-06-2022 12:15-0400Systolic blood pknvtzax528 mm[Hg] Nick Muniz Other [employer] Other 03-28-2022 11:58-0400Blood Pressure LocationPamuhlenberg community hospitaljulianna NORMAN [facility] 03-28-2022 11:58-0400Diastolic blood divwhhqe42 mm[Hg] Clinton NORMAN [facility] 03-28-2022 11:58-0400Heart rate64 /minPatrick NORMAN [facility] 03-28-2022 11:58-0400Respiratory rate16 /minPatrick EMERSON [facility] 03-28-2022 11:58-0400Systolic blood mm[Hg] Clinton NORMAN [facility] 12-16-2021 14:51-0500Body ovzpxc978.88 cmBenjamin E Ball Work Phone: [id number]-Rqqjh [facility] DO Work Phone: 1(637) 910-596212-16-2021 14:51-0500Body mass index (BMI) [Ratio] 23.87 kg/g2Aurmmtfj E Ball Work Phone: [id number]-Nmjtz [facility] DO Work Phone: 1(533) 330-915212-16-2021 14:51-0500Body surface area Derived from formula2.02 n5Fykbhsqt E Ball Work Phone: [phone]-Gqgpk [facility] [address] DO Work Phone: 1(736) 196-736812-16-2021 14:51-0500Body .83 kgBenjamin E Ball Work Phone: [phone]-Bpvkf [facility] DO Work Phone: 1(912) 726-437712-16-2021 14:51-0500Diastolic blood kviuepdo85 mm[Hg] Adam E Ball Work Phone: [id number]-Anski [facility] DO Work Phone: 1(760) 929-435812-16-2021 14:51-0500Heart rate77 /minBenjamin E Ball Work Phone: [phone]-Nuozq [facility] DO Work Phone: 1(469) 970-668212-16-2021 14:51-0500Systolic blood ejdywkes234 mm[Hg] Adam Del Valle Work Phone: mp-[facility] DO Work Phone: Encounters Encounter DateEncounter TypeCare ProviderFacilityStart: 65-83-6289nhmanhafhe Clinton Logancility:[place]vueStart: 03-13-2025 End: 40-32-7543Opizjls encounter Pooja Beavers MD-Pre-Surgical Testing Work Phone: Start: 03-13-2025 End: 56-28-0376qdqzbeboqpDgfhxyra Ball DO Work Phone: -Pre-Surgical TestingStart: 27-45-5418Cqr-patient / Non-visitCatherlinda Davis CMAPho[facility] Work Phone: Start: 88-14-9870nzoiknivexJeovppx R WATERSFacility:[place]vueStart: 02-16-2025 End: 09-81-1862Brblichwst and management of inpatientMojesus Nobles MD-[address] [place] [address] Med Surg Work Phone: Start: 66-99-5674Dfw-patient / Non-visitBasejefferson Akbar MD-[facility] Pulmonary Work Phone: Start: 59-07-2625Hxc-patient / Non-visitNing Godoy APRN-[facility] Work Phone: Start: 01-28-2025 End: 46-23-1760yqmcvonlxrFQVBP K [facility] Start: 01-28-2025 End: 67-86-3269Mtlqoswluc hospital visit by physicianSerenity Turk [address]Comment on above:Cardiac sarcoidosisStart: 01-21-2025 End: 37-31-5439cludkttmktBxenruif Ball DO Work Phone: [facility] Work Phone: Start: 01-21-2025 End: 98-75-6125Zeicwpf encounter procedureNick Muniz MD-[facility] Pulmonary Work Phone: Start: 83-39-6705Pmn-patient / Non-visitNing Godoy APRNAstria [facility] Work Phone: Start: 01-17-2025 End: 09-25-9857hmyjiqbpviBMAHPFormerly [facility], 1928[facility] AmbulatoryStart: 01-17-2025 End: 61-93-8106Xjnwzxwfrzqp / ancillary services managementAmaliagloria Fuetnes [facility] HospitalComment on above:High risk medication useStart: 01-15-2025 End: 01-94-9292qcwgmbbczkRRQEKFormerly [facility], [facility] AmbulatoryStart: 01-15-2025 End: 22-09-8420Fwhtoh outpatient visit 25 Marie Godoy APRNSOLOMON [facility] Work Phone: [facility] on above:High risk medication use (Primary Dx); 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 (Multi); 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; Takotsubo syndrome; BMI < 18.5; Cardiac sarcoidosis; Chewing tobacco use; Other cardiomyopathy; LV dysfunctionStart: 04-03-3266Grn-patient / Non-visitCatherlinda Davis [facility] Work Phone: Start: 01-05-2025 End: 57-42-5085Plzxmtbpha and management of inpatientRuta Horacio SALMON-[address] [place] [facility] Work Phone: Start: 01-02-2025 End: 30-63-5153Pbymgctm ReferredJosue Beavers MD-Pre-Surgical Testing Work Phone: Start: 01-02-2025 End: 15-60-5592Enaljwt encounter procedureJosue Beavers MD-Pre-Surgical Testing Work Phone: Start: 01-02-2025 End: 32-80-2258wnpbykhrsjTbfithce Ball DO Work Phone: [facility] Work Phone: Start: 11-19-2024 End: 97-10-0666oifeqosphcYpunyerw Ball DO Work Phone: [facility] Work Phone: Start: 11-19-2024 End: 90-18-9511Dvzktqa encounter procedureBeelaminda Del Valle DO-[facility] Work Phone: Start: 26-24-1545Zdq-patient / Non-visitCatherine Ryan BOILER REPAIRMAN-[facility] Work Phone: Start: 11-11-2024 End: 86-36-4292Undjysondm and management of inpatientSilvano Reed DO-[facility] [place] [facility] Work Phone: Start: 10-31-2024 End: 74-38-6420hudgheoewnZUJIQP M [facility] AmbulatoryStart: 10-31-2024 End: 90-31-7984Ppljth outpatient visit 25 minutesShannon Gonzalez MD Work Phone: [facility] on above:Other fatigue (Primary Dx); Non-ischemic cardiomyopathy (Multi); 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 (Multi); High risk medication use; Pulmonary sarcoidosis (Multi); BMI < 18.5; Current smokerStart: 09-02-2024 End: 86-51-0223vquvhlxsbdLlapchnh Ball DO Work Phone: [facility] Work Phone: Start: 09-02-2024 End: 84-07-5327Hzdqqbq encounter procedureBegemma Del Valle DO Work Phone: [facility] Work Phone: Start: 08-09-2024 End: 71-01-6078Yyirzslbff hospital visit by physicianSerenity Albert Echo/Vasc Room 2UAB [facility]ahan Eye HospitalComment on above:Non-ischemic cardiomyopathy (Multi); Cardiomyopathy, unspecifiedStart: 08-09-2024 End: 08-06-5171akjzjztczvJZQWGWMorrow County Hospitaltart: 08-05-2024 End: 15-24-4433apqvtjfrwmWgitvdv R WATERSFacility:FTMCStart: 08-05-2024 End: 47-45-9025Gbh Drop offPatrick David [facility]MAN [facility] Start: 08-05-2024 End: 37-60-9063skwbracpoaVaufcsu R WATERSFacility:EU BellevueStart: 08-01-2024 Non-patient / Non-visitBenminda Ivon DO Work Phone: [facility]The [facility] Work Phone: Start: 07-25-2024 End: 82-11-2445Onnawzpyaxeq / ancillary services managementHarriet Gibson [facility] Medical CenterComment on above:Atrial fibrillation, unspecified type (Multi)Start: 07-25-2024 End: 17-27-6135fwiuezadugRJTERBPiedmont Walton Hospital AmbulatoryStart: 07-23-2024 End: 05-17-7177djelwsxziiPqffmi G Furlong DO Work Phone: [facility] Family MedicineComment on above:Chronic systolic congestive heart failure (CMS-HCC) (Primary Dx); Chronic atrial fibrillation (CMS-HCC); Sarcoidosis of lung (CMS-HCC); Hypo-osmolality and hyponatremia; Benign prostatic hyperplasia with lower urinary tract symptoms, symptom details unspecifiedStart: 07-16-2024 End: 59-36-3481hbeqjphrbdOawnwi G Furlong DO Work Phone: [facility] [...] Alcohol dependence, 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CMS-HCC)Start: 07-15-2024 End: 59-29-8025nlnnmlscqcYtoilpbz Ball DO Work Phone: [facility] Work Phone: Start: 07-15-2024 End: 84-36-3483Dabqavy encounter procedureBenminda Ball DO Work Phone: [facility] Physician [facility] Work Phone: Start: 07-10-2024 End: 96-13-5042bffduonsxuAiuyee G Furlong DO Work Phone: [facility] [...] reflux disease without esophagitis; Chronic atrial fibrillation ([facility]-HCC)Start: 22-02-3799Rnq-patient / Non-visit Adam Ball DO Work Phone: [facility] Physician [facility] Cardiology Work Phone: Start: 07-03-2024 End: 00-51-0513Vooohxujwy and management of inpatientBenminda Ball DO Work Phone: [facility] [place] [facility] Work Phone: Start: 06-12-2024 End: 02-68-6026Tuposzrdru hospital visit by physicianSerenity Vital250a Nm 1UAB Callahan Eye HospitalComment on above:Fatigue, unspecified type; Non-ischemic cardiomyopathy (Multi); Diastolic dysfunction; LV (left ventricular) mural thrombus; 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 (Multi)Start: 06-12-2024 End: 61-28-3941zbfpygspkjQFGCLO [facility] Hospitaltart: 06-03-2024 End: 37-91-3835jqentomcycXufumnhs Ball DO Work Phone: [facility] Work Phone: Start: 06-03-2024 End: 45-25-8693Waaygka encounter procedureBenjamin Ball DO Work Phone: [facility] Group-[facility] Medical [facility] Work Phone: Start: 05-24-2024 End: 72-64-2280Sayywu outpatient visit 25 minutesShannon Gonzalez MD Work Phone: [facility] HospitalCommackin[facility] on above:Hypotension due to drugs (Primary Dx); Non-ischemic cardiomyopathy (Multi); Diastolic dysfunction; Fatigue, unspecified type; LV (left ventricular) mural thrombus; 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 (Multi); High risk medication use; Pulmonary sarcoidosis (Multi); BMI 21.0-21.9, adult; Carotid stenosis, rightStart: 05-24-2024 End: 22-62-5829unhrvxiqguFTLQNQPiedmont Walton Hospital AmbulatoryStart: 78-84-4629Dnu-patient / Non-visitBenjamin Ball DO Work Phone: [facility] Work Phone: Start: 05-01-2024 End: 50-01-5644Dzaygqe encounter procedureBentigistmin Ball DO Work Phone: [facility] Vascular Surg Work Phone: Start: 64-26-5724Sds-patient / Non-visitBenjamin Ball DO Work Phone: [facility] Work Phone: Start: 03-27-2024 End: 17-94-7117Yxrttu outpatient visit 25 minutesShannon Gonzalez MD Work Phone: uh [facility] on above:Persistent atrial fibrillation (Multi) (Primary Dx); Non-ischemic cardiomyopathy (Multi); Chronic obstructive pulmonary disease, unspecified COPD type (Multi); BMI 20.0-20.9, adult; High risk medication use; Pulmonary sarcoidosis (Multi); Carotid artery stenosis without cerebral infarction, right; DyslipidemiaStart: 03-27-2024 End: 90-27-7101kkklhcbqybXOKZMD M [facility] AmbulatoryStart: 03-26-2024 End: 51-38-0794jxhmmshiaxChphofvr Ball DO Work Phone: [facility] Work Phone: Start: 03-26-2024 End: 07-49-4974Fvhmxzt encounter procedureBenjamin Ball DO Work Phone: [facility] Work Phone: Start: 03-25-2024 End: 01-27-7755ixhzpmyclyAhjzgvlk Ball DO Work Phone: [facility] Work Phone: Start: 03-25-2024 End: 62-14-9307Qdqfkbm encounter procedureBenjamin Ball DO Work Phone: [facility] Work Phone: Start: 63-50-9024Gfu-patient / Non-visitBenjamin Ball DO Work Phone: [facility] Work Phone: Start: 52-09-2791Amf-patient / Non-visitDO Adam Ball Work Phone: [facility] Cardiology Work Phone: Start: 11-89-2784Nfo-patient / Non-visitDO Adam Del Valle Work Phone: [facility] Rehab and Spine Work Phone: Start: 89-78-1847Urk-patient / Non-visitDO Adam Ball Work Phone: [facility] Vascular Surgery Work Phone: Start: 87-79-4212Gak-patient / Non-visitBenjamin Ball DO Work Phone: [facility] Work Phone: Start: 03-13-2024 End: 72-89-2332Lnswmjnfnq and management of inpatientDO Adam Del Valle Work Phone: [facility] [place] [facility] Work Phone: Start: 11-82-1708Fsf-patient / Non-visitDO Adam Del Valle Work Phone: [facility] Work Phone: Start: 03-08-2024 End: 72-15-3510wiwhyfqlwtYY Adam Del Valle Work Phone: [facility] Work Phone: Start: 03-08-2024 End: 84-87-3211Guzbaso encounter procedureDO Adam Ball Work Phone: [facility] Work Phone: Start: 69-64-3320Elz-patient / Non-visitDO Adam Ball Work Phone: [facility] Work Phone: Start: 76-76-4656Mpn-patient / Non-visitBenjamin Ball DO Work Phone: [facility] Work Phone: Start: 00-56-5506Zcz-patient / Non-visitDO dAam Del Valle Work Phone: [facility] Work Phone: Start: 61-94-1426Vkl-patient / Non-visitDO Adam Del Valle Work Phone: [facility] Work Phone: Start: 34-08-0511Pmy-patient / Non-visitDO Adam Del Valle Work Phone: [facility] Work Phone: Start: 02-28-2024 End: 78-60-8527Bhuseimfdj and management of inpatientDO Adam Del Valle Work Phone: [facility] [place] [facility] Work Phone: Start: 02-20-2024 End: 23-10-8877Vtqoryhdqmhb / ancillary services managementOlivia Toro [facility]osh[facility] Medical CenterComment on above:ArrivedStart: 02-20-2024 End: 28-32-7601rscrjmgwadSEAZOO [facility] AmbulatoryStart: 02-14-2024 End: 94-88-7658dgtbcmvezwFB Adam Del Valle Work Phone: [facility] Work Phone: Start: 02-14-2024 End: 96-20-0049Grycznv encounter procedureDO Adam Del Valle Work Phone: [facility] Work Phone: Start: 31-96-7887Wop-patient / Non-visitDO Adam Del Valle Work Phone: [facility] Work Phone: Start: 88-64-3299Xjm-patient / Non-visitDO Adam Del Valle Work Phone: [facility] Work Phone: Start: 02-02-2024 End: 08-64-4016Soeokxxjcv and management of inpatientDO Adam Del Valle Work Phone: [facility] [place] [facility] Work Phone: Start: 97-77-1638Cpc-patient / Non-visitDO Adam Del Valle Work Phone: [facility] Work Phone: Start: 00-63-1199Lia-patient / Non-visitDO Adam Del Valle Work Phone: [facility] Work Phone: Start: 10-13-2023 End: 69-20-9133Lifmon outpatient visit 25 minutesSteven Alvares MD Work Phone: FirelandsComment on above:Non-ischemic cardiomyopathy (Multi) (Primary Dx); LV (left ventricular) mural thrombus; Diastolic dysfunction; Pulmonary sarcoidosis (Multi); Imbalance; BMI 23.0-23.9, adultStart: 08-14-2023 End: 97-31-9281Altzowo encounter procedurePatrick David NORMAN [facility] start: 05-04-2023 End: 59-44-0608ghzigwoukiSteiciin Ball Other [facility]inderpemiscot [facility] [employer] Other Start: 64-32-2893Wlajdkejq encounterBenjamin IvonJODYG [facility] ClinicStart: 03-01-2023 End: 94-39-1727redtejtmomVrplevxb Ball Other noAspyra [employer] Other Start: 02-90-6776Gnqikl outpatient visit 25 minutes Adam Del Valle Medical ClinicStart: 18-71-4502Ra RenewalBenjamin E Ball Work Phone: [phone]-OqcwfCuyuna [facility] [address] DO Work Phone: Start: 12-04-2022 End: 20-24-2148gmfycazvizRjhagswbbhv Flavio Other [facility] [employer] Other Start: 12-51-3382Jwuwisgat encounterChristopher AvendanoFPG [facility] ClinicStart: 11-28-2022 End: 17-52-5629Fxmswvr encounter procedurePatrick R EMERSON [facility] start: 09-27-2022 End: 18-04-7361luixqgfuzkKsgfvfdl Ball Other [facility] [employer] Other Start: 52-84-0257Wqkgwhyuk encounterBenjamin BallFPG [facility] ClinicStart: 04-80-4868Ut RenewalBenjamin E Ball Work Phone: [phone]-Bslzj [facility] [address] DO Work Phone: Start: 68-90-4775Ybglggdpa for general adult medical examination without abnormal findingsDR ADAM DEL VALLEUniversity Hospitals Lake West Medical Centertart: 09-02-2022 End: 10-02-3785ovfxcggdegBS ADAM DEL VALLEFacility:Q7Rywco: 09-02-2022 End: 63-00-8665Rzavgzbif for general adult medical examination without abnormal findingsDR ADAM DEL VALLEFacility:R5Vpeqp: 09-01-2022 End: 44-31-6952hmfweglcbeDzixwhmz Ball Other [facility] [employer] Other Start: 08-05-7355Odyiceq encounter procedureBenjamin BallFPG [facility] ClinicStart: 99-77-7132Sn RenewalBenjamin E Ball Work Phone: [phone]-Puviq [facility] [address] DO Work Phone: Start: 08-16-2022 End: 92-58-4367azekjlptyeDtxfiaeyqim Flavio Other nort [employer] Other Start: 20-59-7456Tbetvdenz encounterChristopher AvendanoFPG Pulmonary DiseaseStart: 05-16-2022 End: 55-53-8381jwolylhojdSH GREGG QUIROSFacility:G4Kqfrs: 11-95-4738Tioud health examinationChristopher Flavio Other [facility] [employer] Other Start: 04-19-2022 End: 97-50-8946vqjpsruwsnDI JOSE ALFARO .Facility:Q3Nmomq: 02-14-2022 End: 15-28-8127Ibllsad encounter procedureParudolph NORMAN [facility] start: 02-07-2022 End: 83-76-3989yetnhqbgahPX ADAM BALLFacility:A4Kbnsn: 12-13-2021 End: 71-52-0147drvbhbcgfgNE ADAM DEL VALLEFacility:P4Oemhh: 11-30-2021 End: 04-39-0584jypemmdcpjBP ADAM BALLFacility:W5Dpqre: 11-16-2021 End: 47-89-5378vrthxlanubBAJYM PARKERFacility:R9Nbgrw: 11-15-2021 End: 01-74-3019eckzzusztvML JOSE ALFARO .Facility:Y8Etctt: 10-26-2021 End: 39-82-6738Xxwlpqzfd to same day surgery centerDO Adam Del Valle Work Phone: [facility]-Digestive HealthStart: 10-22-2021 End: 77-71-1728Dphvvaf encounter procedureDO Adam Del Valle Work Phone: [facility]-Pre-Surgical Testing Start: 03-16-0799Kl RenewalBenjamin E Ball Work Phone: [phone]-Hemqs [facility] DO Work Phone: Start: 10-07-2021 End: 83-34-0969zcwixwgcinZniyp Hykes Other [facility] [employer] Other Start: 83-78-0851Mktedpemq encounterDavid HykesFPG GastroenterologyStart: 10-05-2021 End: 87-50-7311ebuoghiwkrImtemcdbjiy Flavio Other [facility] [employer] Other Start: 04-34-4015Bxkqskhre encounterChristopher AvendanoFPG Pulmonary DiseaseStart: 2021 End: 93-01-8087nazcjsbdeyTezzvbhyvap Flavio Other [facility] [employer] Other Start: 83-00-4226Ttfbqj outpatient visit 15 minutes Nick PalaciodanoFPG Pulmonary DiseaseStart: 61-73-1029PLJBSRzelgocr E Ball Work Phone: [phone]-Tmhck [place] [employer] 250 DO Work Phone: Start: 08-09-2021 End: 92-47-0660Evhgczo encounter procedurePatricjulianna Hernandez NORMAN [facility] start: 22-87-2911Qnmeef outpatient visit 25 minutes Adam E Ball Work Phone: [phone]-Dhxmr [facility] DO Work Phone: Evaluation findingBenjamin E Ball Work Phone: [phone]-Xneai [place] [employer] 250 DO Work Phone: Procedures DateProcedureProcedure DetailPerforming ClinicianStart: 79-34-1281Pgtyh nucleic acid assayBenjamin Ball DO Work Phone: Start: 70-43-3055AV angiography of thoraxBenjamin Ball DO Work Phone: Start: 95-19-1419Cmxyt chest X-rayBenjamin Ball DO Work Phone: Start: 28-27-3822Uzozx cultureBenjamin Ball DO Work Phone: Start: 50-58-8896Liyay chest X-rayBenjamin Ball DO Work Phone: Start: 76-67-2950Ogjzh cultureBenjamin Ball DO Work Phone: Start: 99-63-8740Hwz routine ecg w/least 12 lds w/i&r Shannon Gonzalez MD Work Phone: Start: 53-13-9167Xlrv tthrc r-t 2d w/wom-mode compl spec&colr Enrike Gonzalez MD Work Phone: Start: 29-05-1200Xzjeb cultureBenjamin Ball DO Work Phone: Start: 73-60-6317VC angiography of thoraxBenjamin Ball DO Work Phone: Start: 77-75-6973Syzkak scan of lower limb veins Adam Ball DO Work Phone: Start: 44-47-9652Goucrvts tomography of abdomen and pelvis with contrastBenjamin Ball DO Work Phone: Start: 96-30-2621TD of head without contrastBenjamin Ball DO Work Phone: Start: 13-96-0259Wwiwk chest X-rayBenjamin Ball DO Work Phone: Start: 99-68-7178Jrmtv nucleic acid assayBenjamin Ball DO Work Phone: Start: 30-21-1598Hk strs tst xers&/or rx cont ecg trcg onlyShannon Gonzalez MD Work Phone: Start: 83-53-6179Auq routine ecg w/least 12 lds w/i&r Shannon Gonzalez MD Work Phone: Start: 13-14-1768Olj routine ecg w/least 12 lds w/i&r Shannon Gonzalez MD Work Phone: Start: 19-49-6846Xhqiqdcc identified in Urine by CultureDO [employer] Work Phone: Start: 22-59-5320Gblqv cultureBenjaessence Del Valle DO Work Phone: Start: 79-31-0034Lltjoax ultrasonography of bilateral carotid arteriesDO [employer] Work Phone: Start: 53-51-1215HWI of headDO [employer] Work Phone: Start: 54-31-8453HR of abdomen and pelvis without contrastDO [employer] Work Phone: Start: 30-27-8622Zokfw chest X-rayDO [employer] Work Phone: Start: 48-20-9067Utcuz chest X-rayDO [employer] Work Phone: Start: 92-93-5460NKR screeningDR ADAM DEL VALLEComment on above:Performed By: #### URIC, BMP, TSH #### [facility] [address] [place] [address] Dr. Fabrizio Roeart: 53-78-5517FZE screeningDR ADAM DEL VALLEComment on above: Performed By: #### BNP, BMP, HSTROPN #### [facility] [address] [address] [address] Fabrizio Roeart: 82-59-0171UutodxcmhheczzdbogxnpllvtdXH [employer] Work Phone: Start: 96-16-0317Eiwbxuzqus studiesPatrick [employer] Start: 70-43-4651InxjrxyjopNppxldt [employer] Start: 41-12-3546Jgicbrdfj for osteoporosisChristopher Flavio Other start: 86-54-8674Wwxqxzujy for malignant neoplasm of prostateChristopher Flavio Other arthroscopy of kneeAdam Del Valle Work Phone: ColonoscopyPaFusion-iok [employer] HemorrhoidectomyPatrick [employer] Total colonoscopyBenminda Del Valle Work Phone: Plan of Treatment DateCare ActivityDetailAuthorStart: 37-68-2690Nxcmxafyhuin vaccination Pneumococcal Vaccine (3 of 3 - PCV20 or PCV21)[facility] Start: 07-06-7687RxbjktvlkroycgwuIyuhihndfbdvfyZxhjhljchb [facility] Start: 06-11-2025 End: 57-77-6606Vostiiw encounter exeuzsidb58/28/2026 11:00 AM EST Office Visit [place] [id number] [facility] [address] [place] [address] Shannon Gonzalez MD [address] [facility] [address], [place] [address] [place] [address] [facility] HospitalStart: 95-55-1681xsxonnthuhQmbvyuoecsRozweazy:EU BellevueStart: 72-57-3877ZnxaogpdsywdurnrUdbxojmzaqfrflWscukmuyfy [facility] ClevelandStart: 15-73-6362XrajvlrbnMer[address] Health [address]. Rita's Medical Centertart: 02-18-2025 End: 24-44-1425Vhrnray encounter cdwrhtdue51/07/2025 10:45 AM EDT Appointment [id number] [facility] [address] [place] [address] [facility]: 59-03-7596Uwslczjhtvhnsp of prophylactic treatment [facility] Centertart: 82-97-0065Kezmttxng culture of sputum [facility] Centertart: 02-16-2025 End: 49-84-4532YlbglezyoMercy Health St. Rita's Medical Centertart: 50-78-3941Reeeqelm therapy procedureMercy Health St. Rita's Medical Centertart: 44-46-6848Ahagfhsm to occupational therapistMercy Health St. Rita's Medical Centertart: 02-16-[address] Rita's Medical Centertart: 87-87-6110Tflerinur culture of sputumMercy Health St. Rita's Medical Centertart: 84-10-6521Bhkhkiyn admission [facility] Centertart: 88-54-9879Kuzcs chest X-rayXR chest 2V* [facility] Centertart: 05-37-6231LD Chest [address] [facility] Medical Centertart: 02-14-2025 End: 79-78-0340WS Heart TransthoracicTransthoracic Echo Limited Echocardiography Routine Takotsubo syndrome Expected: 02/14/2025 (Approximate), Expires: 01/15/2027[facility] Service Area Work Phone: Comment on above:Expected: 02/14/2025 (Approximate), Expires: 01/15/2027Start: 10-73-2333LzgfatkxsnfcmwphAllrbzfkrzplhnBwgucdbjhe [facility] ClevelandStart: 01-28-2025 End: 70-61-5507Bxxkalx encounter oexwvkavr54/16/2025 11:00 AM EDT Appointment [facility] [address] [address] [facility] Medical Office BuildingStart: 01-28-2025 Subsequent hospital visit by skaaslvff40/16/2025 11:00 AM EDT Hospital Encounter [facility] [address] [facility] [address] [place] [address] [facility] Medical Office BuildingStart: 01-21-2025 End: 57-02-0780Plleoaagbqru / ancillary services quluuvuihk86/09/2025 10:00 AM EDT Ancillary Procedure [facility] [address] [facility] [address] [place] [address] [facility] 01-17-2025 End: 48-43-1634XPO [address] [place] [address] Work Phone: Comment on above:Expected: 01/17/2025 (Approximate), Expires: 01/16/2026Start: 01-17-2025 End: 97-24-0653Ozedrvtdjdvn / ancillary services wahjqgnovp02/05/2025 11:00 AM EDT Ancillary Procedure [facility] [address] [address] [place] [address] RE [facility]Start: 01-16-2025 End: 28-64-0252MM Heart WO and W contrast IVMR cardiac morphology and function w and wo IV contrast Imaging Routine Cardiac sarcoidosis Expected: 01/16/2025 (Approximate), Expires: 01/16/2026[facility] Work Phone: Comment on above:Expected: 01/16/2025 (Approximate), Expires: 01/16/2026Start: 01-15-2025 End: 25-67-5350Waysq metabolic 2000 panel - Serum or PlasmaBasic Metabolic Panel Lab Routine 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 (Multi) Takotsubo syndrome Expected: 01/15/2025 (Approximate), Expires: 01/15/2026UnProMed[facility] Work Phone: Comment on above:Expected: 01/15/2025 (Approximate), Expires: 01/15/2026Start: 01-15-2025 End: 91-76-0675IKQ panel - Blood by Automated countCBC Lab Routine 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 (Multi) 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 Takotsubo syndrome Expected: 01/15/2025 (Approximate), Expires: 01/15/2026UnProMedica [facility] Work Phone: Comment on above:Expected: 01/15/2025 (Approximate), Expires: 01/15/2026Start: 01-15-2025 End: 40-50-1887Acwglg monitor studyHolter Or 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 Manager [employer] Cardiac Services Routine 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 (Multi) Takotsubo syndrome Cardiac sarcoidosis Expected: 01/15/2025 (Approximate), Expires: 01/15/2027 [facility] Work Phone: Comment on above:Expected: 01/15/2025 (Approximate), Expires: 01/15/2027Start: 01-15-2025 End: 89-43-3475Fkkdaafvj [Mass/volume] in Serum or PlasmaMagnesium Lab Routine 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 (Multi) group home (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 Takotsubo syndrome Expected: 01/15/2025 (Approximate), Expires: 01/15/2026 [facility] Work Phone: Comment on above:Expected: 01/15/2025 (Approximate), Expires: 01/15/2026Start: 01-15-2025 End: 52-76-9474Llntsgazvto peptide B [Mass/volume] in BloodB-Type Natriuretic Peptide Lab Routine 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 (Multi) group home (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 Takotsubo syndrome Other cardiomyopathy Expected: 01/15/2025 (Approximate), Expires: [facility] Phone: Comment on above:Expected: 01/15/2025 (Approximate), Expires: 01/15/2026Start: 98-93-1773LDLSQ-19 Vaccine ( season)COVID- 19 Vaccine ( season)[place]: 37-88-9368Dmenpycad vaccinationInfluenza Vaccine (#1)[place]: 41-70-7472NhkpriiypMercy Health St. Rita's Medical Centertart: 01-05-2025 End: 92-88-5901UkplxlrymMercy Health St[address] Rita's Medical Centertart: 38-83-3516Jfknzhpic culture of sputumMercy Health St. Rita's Medical Centertart: 42-47-2558Zrnmhcis therapy procedureMercy Health St. Rita's Medical Centertart: 16-63-8688Xjbnbnag to occupational therapistMercy Health St. Rita's Medical Centertart: 34-65-8021Jqtvwxej to cardiologistMercy Health St. Rita's Medical Centertart: 04-04-0870Ynjnawam admissionMercy Health St. Rita's Medical Centertart: 51-71-0476EK angiography of thoraxCT angio chest PE protocolMercy Health St. Rita's Medical Centertart: 10-09-3633LI ChestMercy Health St. [facility]'s Medical Centertart: 97-32-7982Aiszm chest X-rayXR chest 1V portableMercy Health St. Rita's Medical Centertart: 54-11-1514XL Chest Single viewMercy Health St. Rita's Medical Centertart: 78-52-9507EyvupplucMercy Health St. Rita's Medical Centertart: 41-10-1580YbklyrmsxMercy Health St. Rita's Medical Centertart: 11-12-2024 End: 03-85-0375MsptdrkygMercy Health St. Rita's Medical Centertart: 35-47-4216Avttswjd admissionMercy Health St. Rita's Medical Centertart: 86-09-3520Wpeqvjhpn culture of sputumMercy Health St. Rita's Medical Centertart: 21-94-4119Sjhzghdz therapy procedureMercy Health St. Rita's Medical Centertart: 14-29-6734Ecqmhiib to occupational therapistMercy Health St. Rita's Medical Centertart: 11-11-[address] [facility]: 97-21-8906Xlzbt chest X-rayXR chest 1V portableMercy Health St. Rita's Medical Centertart: 29-22-1921FZ Chest Single view [facility]: 11-10-2024 End: 46-48-8444Mzlyg cultureMercy Health St. Rita's Medical Centertart: 11-10-2024 Bacteria identified in Urine by CultureUrine CultureMercy Health St. Rita's Medical Centertart: 10-31-2024 End: 10-37-1496Euesx metabolic 2000 panel - Serum or PlasmaBasic Metabolic Panel Lab Routine Non-ischemic cardiomyopathy (Multi) 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 (Multi) Expected: 10/31/2024 (Approximate), Expires: 10/31/2025[facility] Work Phone: Comment on above:Expected: 10/31/2024 (Approximate), Expires: 10/31/2025Start: 10-31-2024 End: 55-23-6681OCA panel - Blood by Automated countCBC Lab Routine Non-ischemic cardiomyopathy (Multi) 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 (Multi) Expected: 10/31/2024 (Approximate), Expires: 10/31/2025[facility] Service Area Work Phone: Comment on above:Expected: 10/31/2024 (Approximate), Expires: 10/31/2025Start: 10-18-2024 End: 56-50-3082Enblbzj encounter rsizqtgro28/06/2025 1:30 PM EDT Office Visit [place] [id number] [facility] [address] [place] [address] Shannon Gonzalez MD [address] [place] [address] [facility]: 09-13[facility]2024 End: 88-44-4222Cpmgtgr encounter tjpamptpr31/02/2025 2:10 PM EDT Office Visit [address] [place] [address] Shannon Gonzalez MD [address] [place] [address] [facility]: 04-30-2025Medicare Annual Wellness Visit Medicare Annual Wellness Visit (AWV)[facility]: 08-09-2024 End: 35-05-3113Yrjutmw encounter jbvoklnkm45/28/2025 12:30 PM EDT Appointment [address] [place] [phone] [facility]: 07-25[facility]2024 End: 22-66-4063JW Heart TransthoracicTransthoracic Echo Complete Echocardiography Routine Non-ischemic cardiomyopathy (Multi) Expected: 0 07/25/2024 (Approximate), Expires: 03/27/2026[facility] Service Area Work Phone: Comment on above:Expected: 07/25/2024 (Approximate), Expires: 03/27/2026Start: 07-25-2024 End: 59-67-6410Tdmvvtm encounter stwrzjbse42/13/2025 12:30 PM EDT Appointment [place] [address] [place] [phone] [facility] HospitalStart: 08-92-8536GtdngkhsvMercy Health St. Rita's Medical Centertart: 25-06-6045Mecpaytduxytsc of prophylactic treatmentMercy Health St. Rita's Medical Centertart: 87-27-1484Globgmn referral to dietitianMercy Health St. [facility]'s Medical Centertart: 37-76-2076Jsgifbfg to cardiologistMiddletown Hospital Start: 07-04-2024 End: 62-70-8134AnvqloxpsMercy Health St. Rita's Medical Centertart: 95-86-3771Cbuafobh therapy procedureMercy Health St. [facility]'s Medical Centertart: 13-88-0950Ofmmpuoh to occupational therapistMercy Health St. [facility] Medical Centertart: 07-03-[address] [facility]art: 04-22-3342Axnvyxza admissionMercy Health St. [facility] Centertart: 94-52-6227Ajgexm scan of lower limb veinsUS venous duplex LE [facility]ertart: 39-75-6765GB Lower extremity vein - bilateralMercy Health St. [facility]'s Medical Centertart: 07-03-[address] [facility]ertart: 70-16-0139HocbygmggMercy Health St. [facility]'s [facility] Centertart: 20-39-2105Djrvwuub of Bladder with Drainage Device, Via Natural or Artificial OpeningDrainage of Bladder with Drainage Device, Via Natural or Artificial OpeningMercy Health St. [facility] Medical Centertart: 06-12-2024 End: 46-05-6752Oeybtnp encounter /29/2025 2:15 PM EST Appointment [facility] [address] [place] [address] [facility]Start: 06-12-2024 End: 13-16-9895Hiqaacb encounter procedureLima City HospitalSomerset [facility] CenterStart: 05-24-2024 End: 03-80-9197AY Heart Perfusion W stress and W radionuclide IVNuclear Stress Test Cardiac Nuclear Medicine Routine Fatigue, unspecified type Non-ischemic cardiomyopathy (Multi) Diastolic dysfunction LV (left ventricular) mural thrombus 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 (Multi) Expected: 05/24/2024 (Approximate), Expires: 05/24/2026[facility] Service Area Work Phone: Comment on above:Expected: 05/24/2024 (Approximate), Expires: 05/24/2026Start: 04-15-2024 End: 98-13-3946Rvqeacm encounter kjggdelcd12/02/2024 1:20 PM EST Office Visit [address] [place] [address] Shannon Gonzalez MD [address] [facility] [address], [address] [place], [place] [phone] [facility]Start: 03-27-2024 End: 70-04-5140Ipwcc metabolic 2000 panel - Serum or PlasmaBasic Metabolic Panel Lab Routine Non-ischemic cardiomyopathy (Multi) Expected: 03/27/2024 (Approxim ate), Expires: 03/27/2025[facility] Work Phone: Comment on above:Expected: 03/27/2024 (Approximate), Expires: 03/27/2025Start: 97-39-2321GmbbhxybqMercy Health St. Rita's Medical Centertart: 50-38-3402Fnaahqoa to rehabilitation physicianMiddletown Hospital Start: 72-27-3438Bgeggran to neurologistMercy Health St. Rita's Medical Centertart: 69-53-1100Zmgermml to vascular surgeonMercy Health St. [facility]'s Medical Centertart: 03-47-0915Dgckcuie to Social ServicesMercy Health St. [facility]'s Medical Centertart: 79-73-7977Ostcl disorder assessmentMercy Health St. [facility]'s Medical Centertart: 14-39-0398Xcabzjde admissionMercy Health St. [facility] Centertart: 03-01-[address] [facility]: 02-29-2024 End: 36-45-5024Jrcibsp encounter ydrktzjqd04/17/2024 11:40 AM EDT Office Visit [address] [place] [address] Shannon Gonzalez MD [address] [facility] [address], [address] [place], [place] [address] [facility] HospitalStart: 74-22-5523Pberheiy admissionMercy Health St. [facility]'s Medical Centertart: 55-41-5905Ruzrb chest X-rayXR chest 1V portable [facility]ertart: 69-55-8762Lvdqleibgyn of Cardiac Rhythm, SingleRestoration of Cardiac Rhythm, SingleMiddletown Hospital Start: 81-60-7039MxtdyzmpnMercy Health St. Rita's Medical Centertart: 75-88-1048JlyedrhbqMercy Health St. [facility]'s Medical Centertart: 99-16-3467Nxdjctah admissionMercy Health St. [facility]'s Medical Centertart: 74-60-9818Cliauzmn to cardiologistMercy Health St. [facility]'s Medical Centertart: 52-96-9669QWILO-19 Vaccine ( season)COVID-19 Vaccine ()[place]: 01-14-2024 COVID-19 Vaccine ( season)COVID-19 Vaccine () [place]: 58-89-4089GGKBH-19 Vaccine ( season)COVID-19 Vaccine ()[facility] Start: 51-88-9667DGJSV-19 Vaccine ( season)COVID-19 Vaccine ( season)[place]: 55-15-4989Pfxzuksou vaccinationCent[place]: 85-56-2717AVS, Provider: Steven Alvares, Status: Pen, Time: 1:40 PMFUV, Provider: Steven Alvares, Status: Pen, Time: 1:40 PMSleepy [facility] 250 DO Work Phone: Start: 25-63-6583VHTQC-19 Vaccine ( season) COVID-19 Vaccine ()[place]: 87-00-5062NDB, Provider: Steven Alvares, Status: Pen, Time: 11:20 AMFUV, Provider: Steven Alvares, Status: Pen, Time: 11:[address] [address] DO Work Phone: Start: 15-35-7030HTL, Provider: Steven Alvares, Status: Pen, Time: 1:40 PMFUV, Provider: Steven Alvares, Status: Pen, Time: 1:40 PM-[facility] 250 DO Work Phone: Start: 81-94-3593Igqqbtuzhiae Vaccine: 65+ Years (3 of 3 - PPSV23 or PCV20)Pneumococcal Vaccine: 65+ Years (3 of 3 - PPSV23 or PCV20) [place]: 42-55-6673Arkd Risk ScreeningFall Risk ScreeningGuernsey Memorial Hospital SystemStart: 60-04-7603VMoG/Tdap/Td Vaccines (1 - Tdap)DTaP/Tdap/Td Vaccines (1 - Tdap)[place]: 14-13-1484KER High Risk: (Elderly (60+) or Population) (1 - Risk 60-74 years 1-dose series)RSV High Risk: (Elderly (60+) or Population) (1 - Risk 60-74 years 1-dose series)[place]: 59-43-9227WBQ patients and/or patients aged 60+ years (1 - 1-dose 60+ series)RSV patients and/or patients aged 60+ years (1 - 1-dose 60+ series)[place]: 36-77-9974Hiqkegrjryhzuv of varicella zoster vaccineZoster (Shingles) Vaccine (1 of 2)[facility] SystemStart: 53-58-4297Mtgfgb Vaccines (1 of 2)Zoster Vaccines (1 of 2) [place]: 62-05-3887UZvS/Tdap/Td Vaccines (1 - Tdap)DTaP/Tdap/Td Vaccines (1 - Tdap)[place]: 33-12-6312BAsQ,Tdap and Td Vaccines (1 - Tdap)DTaP,Tdap and Td Vaccines (1 - Tdap)[facility] SystemStart: 12-57-8513Qaekm BMI ScreeningAdult BMI ScreeningGuernsey Memorial Hospital SystemStart: 24-65-9498Hdgpnrpu mellitus screening Diabetes ScreeningCent[place]: 35-80-2480Tgvcglabs C screeningHepatitis C ScreeningCent[place]: 1967 Depression ScreeningDepression ScreeningGuernsey Memorial Hospital SystemStart: 1966 Tobacco ScreeningTobacco ScreeningProKettering Health Springfieldtart: 18-79-7288MTE Vaccines (1 of 1 - Standard series)MMR Vaccines (1 of 1 - Standard series) [place]: 19-74-7057Tkvvil wellness visitMedicare Initial Physical (IPPE)[place]: 1955 Creatinine measurementCreatinine [facility]: 01-80-9803Lmtkp panelLipid PanelCent[place]: 04-06-1955Medicare Annual Wellness VisitMedicare Annual Wellness Visit (AWV) [place]: 09-87-2982Bsjgeicmg measurementPotassium [facility]: 19-20-5958Rglvlwolf for malignant neoplasm of colonCent[place]: 72-18-1141Vaktoia stimulating hormone measurementTSAmerican Hospital Association Albumin/Globulin ratioMiddletown HospitalAnion gap measurement [facility] HospitalAnion gap measurementMiddletown HospitalAnion gap measurementMiddletown HospitalBasophils [#/volume] in Blood by Automated countMiddletown HospitalBasophils [#/volume] in Blood by Automated countMiddletown Hospital Basophils [#/volume] in Blood by Automated countMiddletown HospitalBasophils/100 leukocytes in Blood by Automated countMiddletown HospitalBasophils/100 leukocytes in Blood by Automated countMiddletown HospitalBasophils/100 leukocytes in Blood by Automated count [facility] HospitalComprehensive metabolic 2000 panel - Serum or PlasmaMiddletown HospitalECG 12 LeadECG 12 Lead ECG Routine Atrial fibrillation, unspecified type (Multi) 02/20/2024 1:44 PM [facility] Service Area Work Phone: ECK 12 LeadECG 12 Lead ECG Routine Atrial fibrillation, unspecified type (Multi) 07/25/2024 9:48 AM [facility] Work Phone: ecg 12 LeadECG 12 Lead ECG Routine High risk medication use 01/15/2025 8:35 AM [facility] Work Phone: Eosinophils/100 leukocytes in Blood by Automated [facility] HospitalEosinophils/100 leukocytes in Blood by Automated [facility]woodsEosinophils/100 leukocytes in Blood by Automated [facility] SouthwoodsErythrocyte distribution width [Ratio] by Automated [facility] Erythrocyte distribution width [Ratio] by Automated [facility] SouthwoodsErythrocyte distribution width [Ratio] by Automated [facility]woodsErythrocytes [#/volume] in [facility] ClinicErythrocytes [#/volume] in [facility] Erythrocytes [#/volume] in [facility] ClinicGlobulin [Mass/volume] in SerumMiddletown HospitalGlomerular filtration rate [Volume Rate/Area] in Serum, Plasma or Blood by [facility] HospitalGlomerular filtration rate [Volume Rate/Area] in Serum, Plasma or Blood by [facility] HospitalHematocrit [Volume Fraction] of [facility] ClinicHematocrit [Volume Fraction] of [facility] ClinicHematocrit [Volume Fraction] of [facility] MemorialHemoglobin [Mass/volume] in [facility] ClinicHemoglobin [Mass/volume] in [facility] ClinicHemoglobin [Mass/volume] in [facility] Leukocytes [#/volume] corrected for nucleated erythrocytes in Blood by Automated [facility] HospitalLeukocytes [#/volume] corrected for nucleated erythrocytes in Blood by Automated [facility] HospitalLeukocytes [#/volume] corrected for nucleated erythrocytes in Blood by Automated [facility] HospitalLeukocytes [#/volume] in Blood [facility] HospitalLeukocytes [#/volume] in [facility] ClinicLeukocytes [#/volume] in [facility] ClinicLymphocytes [#/volume] in Blood by Automated [facility]woodsLymphocytes [#/volume] in Blood by Automated countMiddletown HospitalLymphocytes [#/volume] in Blood by Automated count [facility] HospitalLymphocytes/100 leukocytes in Blood by Automated countMiddletown HospitalLymphocytes/100 leukocytes in Blood by Automated countMiddletown HospitalLymphocytes/100 leukocytes in Blood by Automated countMiddletown HospitalMCH [Entitic mass] by Automated countMiddletown HospitalMCH [Entitic mass] by Automated countMiddletown HospitalMCH [Entitic mass] by Automated countMiddletown HospitalMCHC [Mass/volume] by Automated countMiddletown HospitalMCHC [Mass/volume] by Automated count [facility] HospitalMCHC [Mass/volume] by Automated countMiddletown HospitalMCV [Entitic volume] by Automated countMiddletown HospitalMCV [Entitic volume] by Automated countMiddletown HospitalMCV [Entitic volume] by Automated [facility] Monocytes [#/volume] in Blood by Automated countMiddletown HospitalMonocytes [#/volume] in Blood by Automated [facility]woodsMonocytes [#/volume] in Blood by Automated countMiddletown HospitalMonocytes/100 leukocytes in Blood by Automated countMiddletown HospitalMonocytes/100 leukocytes in Blood by Automated count [facility] HospitalMonocytes/100 leukocytes in Blood by Automated [facility] End: 41-91-5034LR Heart WO and W contrast [facility]AL[facility] Service Area Work Phone: Comment on above:Once for 1 Occurrences starting 01/28/2025 until 01/28/2025Neutrophils [#/volume] in Blood by Automated count [facility] HospitalNeutrophils [#/volume] in Blood by Automated countMiddletown HospitalNeutrophils [#/volume] in Blood by Automated countMiddletown HospitalNeutrophils/100 leukocytes in Blood by Automated countMiddletown HospitalNeutrophils/100 leukocytes in Blood by Automated countMiddletown Hospital Neutrophils/100 leukocytes in Blood by Automated countMiddletown HospitalNucleated erythrocytes [Presence] in Blood by Automated countMiddletown HospitalNucleated erythrocytes [Presence] in Blood by Automated countNovant Health Rowan Medical Center Regional Medical CenterNucleated erythrocytes [Presence] in Blood by Automated [facility] SouthwoodsPatient EducationKettering Health Troy Ctr Work Phone: Patient referralKettering Health Troy Ctr Work Phone: Platelet mean volume [Entitic volume] in Blood by Automated [facility] SouthwoodsPlatelet mean volume [Entitic volume] in Blood by Automated [facility] SouthwoodsPlatelet mean volume [Entitic volume] in Blood by Automated [facility] SouthwoodsPlatelets [#/volume] in [facility] Platelets [#/volume] in [facility] ClinicPlatelets [#/volume] in [facility] Immunizations Immunization DateImmunizationNotesCare GgmkmmcrNpntakef39-81-4452gnjvrbdqd, high dose seasonal, preservative-freeBenjamin Ball DO Work Phone: [facility]03-04-2025RSV, 60 Years And Older (AREXVY)Shannon Gonzalez MD Work Phone: [facility] Work Phone: [phone]ba, high dose seasonal, preservative-freeBenjamin Ball DO Work Phone: [facility]10-01-2024Flu vaccine, quadrivalent, high-dose, preservative free, age 65y+ (FLUZONE)Shannon Gonzalez MD Work Phone: [facility]10-01-2024influenza virus vaccine, unspecified formulationNing Godoy APRN-PALEONTOLOGY TEACHER Work Phone: [facility] Work Phone: [phone], high dose seasonal, preservative-freeBenjamin Ball Other [employer] Other [id number] virus vaccine, unspecified formulationDO Adam Ball Work Phone: [facility]10-19-2022Fluad Quadrivalent 0.5 ML Intramuscular Prefilled SyringeBenjamin E Ball Work Phone: [phone]-VnxgrEssentia Health 250 DO Work Phone: [phone]nt virus vaccine, split virus (incl. purified surface antigen)Rustybrendan Modino Other [employer] Other [id number] virus vaccine, unspecified formulationPamuhlenberg community hospitalk [employer] [facility]10-19-2022influenza, seasonal, injectableSteven Alvares MD Work Phone: [facility] Work Phone: [phone]gj, high dose seasonal, preservative-freeBenjamin Ball Other no[facility] [employer] Other [id number] High-Dose Quadrivalent 0.7 ML Intramuscular Suspension Prefilled SyringeBenjamin E Ball Work Phone: [phone]-MtlqnEssentia Health 250 DO Work Phone: [phone]c virus vaccine, unspecified formulationPatrick [employer] [facility]11-12-2021influenza, high dose seasonal, preservative-freeSteven Alvares MD Work Phone: [facility] Work Phone: [phone]-HohXQhyp COVID-19 Vacc 30 MCG/0.3ML Intramuscular SuspensionBenjamin E Ball Work Phone: [facility]10-01-2021influenza virus vaccine, unspecified formulationPatricSPOC Medical [facility] [id number]-PoP-5 (COVID-19) mRNA BNT-162b2 vax Clinton NORMAN [facility] [id number]-NdvGNgxi COVID-19 Vacc 30 MCG/0.3ML Intramuscular SuspensionBenjamin E Ball Work Phone: [facility]03-31-2021 pneumococcal conjugate vaccine, 13 Cherise Alvares MD Work Phone: [facility] Work Phone: [phone]-QvvTLurs COVID-19 Vacc 30 MCG/0.3ML Intramuscular SuspensionBenjamin E Ball Work Phone: [facility] HospitalComment on above: Result Comment: 2023-08-14: [id number] virus vaccine, unspecified formulationPaOctapoly [facility]10-05-2020influenza, high dose seasonal, preservative-freeBenjamin E Ball Work Phone: [phone]-GglgjRiver's Edge HospitalRoosevelt 250 DO Work Phone: [phone]zfb virus vaccine, unspecified formulationPaFusion-iojulianna [employer] [facility] [id number] virus vaccine, split virus (incl. purified surface antigen)Nick Muniz Other [employer] Other [id number] virus vaccine, unspecified formulationDO [employer] Work Phone: [facility]09-01-2020influenza virus vaccine, unspecified formulationPaOctapoly [facility]09-01-2020influenza, high dose seasonal, preservative-freeBenjamin E Ball Work Phone: [phone]-VavqpSleepy Eye Medical Center 250 DO Work Phone: [phone]ayqui virus vaccine, split virus (incl. purified surface antigen)Nick Muniz Other [facility] [employer] Other [id number] virus vaccine, unspecified formulationDO [employer] Work Phone: [facility]10-10-2017influenza virus vaccine, unspecified formulationPaOctapoly [facility]10-10-2017influenza, seasonal, injectableBenjamin E Ball Work Phone: [phone]-GttylSleepy Eye Medical Center 250 DO Work Phone: [phone] and diphtheria toxoids, adsorbed, preservative free, for adult use (5 Lf of tetanus toxoid and 2 Lf of diphtheria toxoid)Nick Muniz Other [facility]02-15-2017 pneumococcal polysaccharide vaccine, 23 valentBenjamin E Ball Work Phone: [facility]02-10-2017pneumococcal conjugate vaccine, 13 valentBenjamin E Ball Work Phone: [facility]02-10-2017pneumococcal Conjugate, unspecified formulation; Translations: [Need for prophylactic vaccination against Streptococcus pneumoniae (pneumococcus)]Nick Muniz Other [employer] Other [id number], seasonal, Mariella Godoy 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 purified surface antigen)Nick Muniz Other [employer] Other [id number] virus vaccine, unspecified formulationDO Adam Ivon Work Phone: [facility]02-02-2011 pneumococcal polysaccharide vaccine, 23 valentChristopher Flavio Other [facility]07-07-2004tetanus toxoid, adsorbedBenjamin E Ball Work Phone: [phone]-WdxtvSleepy Eye Medical Center 250 DO Work Phone: Payers DatePayer CategoryPayerPolicy [id number] 2025Private Health [id number]-zcb [id number] 2024Medicare [id number] 2024Medicare (Managed Care) [id number] Health [id number] [id number] 2.16.840.1.074209.3.57[id number] 2.16.840.1.412377.3.57[id number] 2.16.840.1.761601.3.57[id number] 2.16.840.1.692731.3.57[id number] 2.16.840.1.132497.3.57[id number] 2.16840.1.636119.3.57[id number] 2.16.840.1.113435.3.57[id number] 2.16.840.1.250320.3.57[id number] 2.16.840.1.749651.3.57[id number] 2..840.1.857505.3.579.2.455646-28-3359Wdpkjrk113929572 2.16.840.1.281745.3.579.2.313708-90-5436Aotlgze992946238 2.16.840.1.655006.3.579.2.630329-49-3753Ilxqdzh132241121 2.16.840.1.660485.3.579.2.752283-16-2810Zenxajx004237014 2.16840.1.158866.3.579.2.916751-79-4384Errowxn509663964 2.16.840.1.297158.3.579.2.131754-99-0102Gfrcdyf058214662 2.16.840.1.368630.3.579.2.111269-58-1284Rcucsin21576799 2.16.840.1.829688.3.579.2.991511-84-8511Fjtfcss77226250 2.16.840.1.034019.3.579.2.201123-42-6630Iphjlpo35159313 2.16840.1.649048.3.579.2.852793-89-6652Cwaykni48183428 2.16840.1.556365.3.579.2.017116-95-2369Aebspje76347858 2.840.1.327164.3.579.2.334849-65-6768Mifzbqa86924142 2.16840.1.877017.3.579.2.721233-35-1679Yscotml71201415 2.16840.1.022357.3.579.2.219979-08-4166Vqqaddk40994145 2.840.1.685602.3.579.2.47378-52-2282Eaabjwn20117079 2.16840.1.677079.3.579.2.02036-50-7902Keyhafg27068506 2.16840.1.781333.3.579.2.08283-83-6423Yglztmo86849613 2.16840.1.232722.3.579.2.98125-68-2821Hsuetoo73336094 2.16840.1.890114.3.579.2.727UnknownMEDICAREUnknownHCAP/HFA/FAP [id number] 901294lr-[id number]-68i7-pyfc-[id number] 2.16.840.1.359980.3.579.2.009Vduhobj94078334 2.16.840.1.658416.3.579.2.531 Rjeekkn12256748 2.16.840.1.145730.3.579.2.647Cuzdsop62202526 2.16.840.1.324802.3.579.2.469Vuounyx83397162 2.16.840.1.175690.3.579.2.531 Uuxkjdk79350293 2.16.840.1.636951.3.579.2.524Pkehnkd13449700 2.16.840.1.207915.3.579.2.531 Social History DateTypeDetailFacilityStart: 07-26-2023 End: 68-93-6347Zhdctxyi useCaffeine use-[facility] DO Work Phone: Comment on above:1-2 servings;Start: 04-05-2021 End: 62-94-3640Qfbhogv smoking statusNever smoked tobacco (finding)[facility] start: 07-26-2023 End: 62-58-6208Qfy Assigned At [facility] start: 05-76-7360Mxp Assigned At [facility]art: 01-30-9061Jjqnwxb smoking statusNeverExecutive [facility] of [facility] Hospitaltart: 77-01-6380Syxghml use and exposureUser of smokeless tobaccoMcCullough-Hyde Memorial Hospital Work Phone: History of tobacco useChews TobaccoUnProMedica Flower Hospital Work Phone: Start: 10-13-2023 End: 62-99-4539Ggueamvin beverage intakeCurrent drinker of alcohol (finding) [facility] Work Phone: Start: 66-49-4740Ekr assigned at birthNot on file [facility] Work Phone: Start: 10-03-2023 End: 87-99-8488Rvdoywzz to SARS-CoV-2 (event)Not sureUnProMedica Flower HospitalStart: 03-27-2024 End: 11-73-0631Teivwxyng beverage intakeEx-drinker (finding)[facility] Work Phone: Start: 03-25-2024 End: 95-55-4009NpmOxdj (finding)[facility] Cent[facility]art: 03-18-9226Acqyqwf smoking status NHISTobacco smoking consumption unknown [facility] SystemSexual [facility] Start: 10-31-2024 End: 47-14-4181Ykkxvrvka beverage intakeLifetime non-drinker (finding)[facility] Work Phone: Start: 11-11-2024 End: 02-51-5309Wohsppu smoking status NHISEx-smoker (finding)[facility] Centertart: 11-11-2024 End: 11-29-9012LCMM Follow upSDOH Follow upUniversity [facility] Work Phone: Start: 01-02-2025 End: 83-72-0335Xoedbzd smoking status NHISSmokes tobacco daily (finding) [facility] Goals DatePatient GoalDesired Activity/State Functional Status MhopXrczgxzvowCnpkwbXdvxampf77-05-1775Fxcakizakw statusPatient is Progressing Toward BaselineUniversity Hospitals Ge[facility] Work Phone: [phone] statusPatient at Baseline [facility] Work Phone: [phone] statusPatient at Baseline [facility] Work Phone: [phone]se statusPatient at Baseline [facility] Work Phone: [phone] statusPatient at Baseline [facility] Work Phone: [phone] statusPatient at Baseline [facility] Work Phone: [phone]hs StatusN/AExec[facility]07-17-2023Functional StatusN/A[facility]10-03-2022Functional StatusN/A [facility] Mental Status WlizPorhhitszxQmcbmgEugcbpmk13-76-7946Capddsaaw functionCognitive Status Patient is Progressing Toward [facility] Work Phone: [phone] functionCognitive Status Patient at BaselineUniversity [facility] Work Phone: [phone] functionCognitive Status Patient at BaselineUniversity [facility]als [facility] Work Phone: [phone] functionCognitive Status Patient at BaselineUniversity [facility]als [facility] Work Phone: [phone] functionCognitive Status Patient at BaselineK[facility] Work Phone: [phone] functionCognitive Status Patient at [facility] Work Phone: Clinical Notes 08-09-2021 to 02-16-2025 Note Date & YlvlUghrSotkupbz64-96-1684 [place] [address] Hospitalist H&P Signed Patient: Jose R Mcadamsandrew Rodriguez MR#: [id number] : 1955 Acct:[id number] Age/Sex: 69 / M Adm Date: 5 Loc: Room: 4D4664-5 Type: ADM IN Attending Dr: Gabriela Nobles MD Copies to: DO Gabriela Waller MD~ HPI DATE OF EXAMINATION: 02/16/25 CHIEF COMPLAINT: Shortness of breath HISTORY OF PRESENT ILLNESS: This is a 69-year-old male with past medical history of sarcoidosis with bronchiectasis who was recently admitted to [facility] on January 05 through January 09 due [...] noted below or in HPI [facility] Medical History H/O non-ST elevation myocardial infarction (NSTEMI) Takotsubo cardiomyopathy (~12/2024) History of sarcoidosis Acute on chronic hypoxic respiratory failure Non-ST elevation DC (NSTEMI) On home oxygen therapy Skin cancer [...] % (Auto) 18.5 % (.) 02/15/25 21:18 [place] % (Auto) 10.6 % (.) 02/15/25 21:18 Eos % (Auto) 2.7 % (.) 02/15/25 21:18 Baso % (Auto) 1.0 % (.) 02/15/25 21:18 Nucleat RBC Rel Count 0.0 /100 WBC (0-0.5) 02/15/25 21:18 Neut # (Auto) 4.3 x10E3/uL (1.8-7.7) 02/15/25 21:18 Lymph # (Auto) 1.2 x10E3/uL (1.00-4.8) 02/15/25 21:18 [place] # (Auto) 0.7 x10E3/uL (0.0-0.8) 02/15/25 21:18 [...] MD 02/16/25 0331 Signed By: 02/16/25 0344 [facility]09-05-2025 History of Present illness Narrative * Maya Fuentes CMA - 01/17/2025 11:00 AM EDT Patient here for EKG visit ordered by Ning Godoy FAMILY SUPPORT COORDINATOR due to prolong QTc. Ning Godoy FAMILY SUPPORT COORDINATOR in suite to review EKG prior to [...] done in office today documented in this encounterMcCullough-[facility] Hospital Work Phone: 1([phone]) 542-233109-04-2025 Evaluation + Plan note* Assessment & Plan Note - DANICA Arguelles - 01/16/2025 2:10 PM EDTAssociated Problem(s): Cardiac sarcoidosis August 2015 cMRI EF 58% Cardiac sarcoidosis involvement basal inferior wall and basal inferior septum. 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 CHADS VASc 2 [...] inpatient ECG Qtc 548 documented in this [facility] Work Phone: 1([phone]) 262-280809-04-2025 Evaluation + Plan note* Assessment & Plan Note - DANICA Arguelles - 01/16/2025 2:09 PM EDTAssociated Problem(s): Cardiac and Vasculature July 2015 cardiac cath: angiographically normal coronaries May 2024 MPI No ischemia/infarct EF 57% [facility] Work Phone: [phone] 669-685009-04-2025 Evaluation + Plan note* Assessment & Plan Note - DANICA Arguelles - 01/16/2025 2:08 PM EDTAssociated Problem(s): Chewing tobacco use Discussed risk of continued usage [facility] Work Phone: [phone] 107-731609-04-2025 Evaluation + Plan note* Assessment & Plan Note - DANICA Arguelles - 01/16/2025 2:08 PM EDTAssociated Problem(s): group home (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 CHADS VASc 2 anticoagulated on full dose Xarelto CR 0.86 Denies bleeding diathesis Discharge Hgb 9.9 In 2014 had GIB on coumadin (for LV thrombus) [facility] Work Phone: [phone] 262-570209-04-2025 Evaluation + Plan note* Assessment & Plan [...] dose at recent dischargeand has symptomatic hypotension [facility] Work Phone: [phone] Evaluation + Plan note* Assessment & Plan Note - DANICA Arguelles - 01/16/2025 1:58 PM EDTAssociated Problem(s): 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 (Multi) Maintaining NSR during December 2024 hospitalization Last PAF Mar 2024 (was on amiodarone at the time and changed to dofetilide) [facility] Work Phone: [phone] Evaluation + Plan note* Assessment & Plan Note - DANICA Arguelles - 01/16/2025 1:50 PM EDTAssociated Problem(s): High risk medication use Prior amiodarone failure Dofetilide 250mcg BID - start date Mar 2024 ECG in office today elba Post. 0.Jun hospitalization reported Qtc prolongation on dofetlide 250 mcg BID. Jan 09, 2025: inpatient ECG Qtc 548 [facility] Work Phone: 1([phone] 114-196209-03-2025 History of Present illness Narrative* Ning Ness [...] by family member. December 2024: hospitalized at [facility] due to SOB. Seen in Cardiology consult [...] dose at recent dischargeand has symptomatic hypotension group home (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 CHADS VASc 2 [...] for Qtc tomorrow Ning Godoy MSN, DANICA, PMHNP-[facility] [place], [place] Please excuse any errors in grammar or translation related to this dictation. Voice recognition software was utilized to prepare this document. documented in this [facility] Work Phone: 1(282) [phone] Instructions* Patient Instructions* DANICA Arguelles - 01/15/2025 [...] sarcoidosis ECG for Qtc documented in this [facility] Work Phone: 1([phone] 777-870608-28-2025 Discharge summary Author Jostin Larose [facility]Note Date/TimeAugust 2024 1:41[place] [address] Discharge Summary Signed Patient: Mary Mcadams MR#: [id number] : 1955 Acct:[id number] Age/Sex: 69 / M Adm Date: 5 Loc: Room: [address] [place] [address]: Jostin Larose DO Copies to: DO Jostin Waller, ~ Providers Date of Admission: 01/05/25 Date of Discharge: 01/09/25 Discharging Provider: Jostin Larose Primary Care Provider: Adam Del Valle Consults: 01/05/25 02:39 Consult to Cardiology Routine Comment: Consulting Provider: [facility], [facility] Reason For Exam: abn trop Has Provider Been Notified: Yes Date of Notification: 01/05/25 Time of Notification: 07:26 01/05/25 02:40 Consult to Occupational Therapy Routine Comment: Physician Instructions: Consult to OT for:: Evaluation and Treat Consult to Physical Therapy Routine Comment: Physician Instructions: Consult to PT for:: Evaluation and Treat Discharge Diagnosis (1) Non-ST elevation DC (NSTEMI): (2) Takotsubo cardiomyopathy: (3) History of sarcoidosis: (4) Acute on chronic hypoxic respiratory failure: (5) Pulmonary sarcoidosis: (6) Atrial fibrillation: Final Diagnosis Final Discharge Diagnosis: as above Summary Hospital Course Hospital course: Mr Pema Gomes is a 69-year-old male who 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 with a chief complaint of shortness [...] to 50%, per the review of the hazardous material specialist on the case who discussed it with [...] Continuity of Care Document Health Concerns: A [facility] screening has identified you as FRAIL [...] Strong:Four Ways to Beat the Frailty Risk https://www.[facility].org/health/ebgfvcdq-vzl-iksqeppald/st un-jjlktb-ysoc- hmaz-hm-vzhx-wkv-yvzsmxh-dxsj Exam Physical Exam Vital Signs: Temp Pulse [...] Sodium 137, Potassium 4.9, Chloride 104, Carbon Tyztbaq01.9, Anion Gap 11.0, BUN 45 H, Creatinine 1.15, Est GFR (CKD-EPI) > 60.0, Glucose 132 H, Calcium 8.8, Magnesium 2.3 Documented By: Jostin Larose DO 01/09/25 1329 Signed By: <Electronically signed by Jostin Larose DO> 01/09/25 1341 [facility] Work Phone: 1(682) 109-257808-28-2025 Hospital Discharge instructionsAmbulatory Orders* Initiate Home Health Time Frame: 01/09/25, Location: Determined By Patient Additional Instructions Continue oxygen as per chronic orders Home health to manage: -RN/PT/OT/Aide/SW to eval and treat -Monitor VS per protocol -Fall precautions -Perform respiratory and cardiovascular assessments -Continue oxygen as per chronic orders -Assist with medication management and educationK[facility] Work Phone: 1(920) 794-977608-28-2025 Discharge [place] [id number] Discharge Summary Signed Patient: Mary Mcadams MR#: [id number] : 1955 Acct:[id number] Age/Sex: 69 / M Adm Date: 5 Loc: Room: [address] [place] [address]: Jostin Larose DO Copies to: DO Jostin Waller, DO~ Providers Date of Admission: 01/05/25 Date of Discharge: 01/09/25 Discharging Provider: Jostin Larose Primary Care Provider: Adam Del Valle Consults: 01/05/25 02:39 Consult to Cardiology Routine Comment: Consulting Provider: [facility] Reason For Exam: abn trop Has Provider Been Notified: Yes Date of Notification: 01/05/25 Time of Notification: 07:01/05/25 02:40 Consult to Occupational Therapy Routine Comment: Physician Instructions: Consult to OT for:: Evaluation and Treat Consult to Physical Therapy Routine Comment: Physician Instructions: Consult to PT for:: Evaluation and Treat Discharge Diagnosis (1) Non-ST elevation DC (NSTEMI): (2) Takotsubo cardiomyopathy: (3) History of sarcoidosis: (4) Acute on chronic hypoxic respiratory failure: (5) Pulmonary sarcoidosis: (6) Atrial fibrillation: Final Diagnosis Final Discharge Diagnosis: as above Summary Hospital Course Hospital course: Mr Pema Gomes is a 69-year-old male who 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 with a chief complaint of shortness [...] to 50%, per the review of the hazardous material specialist on the case who discussed it with [...] Continuity of Care Document Health Concerns: A [facility] screening has identified you as FRAIL [...] Strong:Four Ways to Beat the Frailty Risk https://www.[facility].org/health/kdxdmngj-tcg-rgyuqmuabb/st bz-vihuci-ghkr- ygwo-kf-pjvn-nhb-ybcznqx-vvsb Exam Physical Exam Vital Signs: Temp Pulse [...] Sodium 137, Potassium 4.9, Chloride 104, Carbon Bmecmtq17.9, Anion Gap 11.0, BUN 45 H, Creatinine 1.15, Est GFR (CKD-EPI) > 60.0, Glucose 132 H, Calcium 8.8, Magnesium 2.3 Documented By: Jostin Larose DO 01/09/25 1329 Signed By: 01/09/25 1341 [facility]08-28-2025 Consult note Author Chacho Burroughs [facility]Note Date/TimeAugust 2024 10:48am [place] [address] Cardiology Consult Note Signed with Jamarcusenda Patient: Mary Mcadams MR#: [id number] : 1955 Acct:[id number] Age/Sex: 69 / M Adm Date: 5 Loc: Room: [address] [place] [address] Type: ADM IN Attending Dr: Jostin Larose [...] additional complaints, except as documented [facility] Medical History On home oxygen therapy Skin [...] # (Auto) 1.2 0.4 L (1.00-4.8) x10E3/uL [place] # (Auto) 0.6 0.1 (0.0-0.8) x10E3/uL Eos [...] ml @ 999 mls/hr IV .Q31M ONE Rx#:[id number] cefTRIAXone 1GM-*NS* 1 gm In 50 50 / 50 ml @ 100 mls/hr IV ONCE ONE Rx #:[id number] Oral 350 / 350 Output: Urine 150 [...] block) A&P - Cardiology (1) Non-ST elevation DC (NSTEMI): Code(s): I21.4 - Non-ST elevation (NSTEMI) [...] disease Documented By: Chacho Burroughs MD 01/05/25 1331 Signed By: <Electronically signed by MD Chacho Burroughs> 01/05/25 1353 [facility] Work Phone: 1(583) 929-259008-28-2025 Progress note Author Chacho Burroughs [facility]Note Date/TimeAugust 2024 10:47am [place] [address] Cardiology Progress Note Signed Patient: Mary Mcadams MR#: [id number] : 1955 Acct:[id number] Age/Sex: 69 / M Adm Date: 5 Loc: 4P Room: 0I9763-5 Type: ADM IN Attending Dr: Jostin Larose [...] 2.3 A&P - Cardiology (1) Non-ST elevation DC (NSTEMI): Code(s): I21.4 - Non-ST elevation (NSTEMI) [...] signed by MD Chacho Burroughs> 01/09/25 1047 [facility] Work Phone: 1([phone]) 922-122708-28-2025 [place] [address] Cardiology Consult Note Signed with Addenda Patient: Mary Mcadams MR#: [id number] : 1955 Acct:[id number] Age/Sex: 69 / M Adm Date: 5 Loc: Room: [address] [place] [address] Type: ADM IN Attending Dr: Jostin Larose [...] additional complaints, except as documented [facility] Medical History On home oxygen therapy Skin [...] # (Auto) 1.2 0.4 L (1.00-4.8) x10E3/uL [place] # (Auto) 0.6 0.1 (0.0-0.8) x10E3/uL Eos [...] ml @ 999 mls/hr IV .Q31M ONE Rx#:[id number] cefTRIAXone 1GM-*NS* 1 gm In 50 50 / 50 ml @ 100 mls/hr IV ONCE ONE Rx #:[id number] Oral 350 / 350 Output: Urine 150 [...] block) A&P - Cardiology (1) Non-ST elevation DC (NSTEMI): Code(s): I21.4 - Non-ST elevation (NSTEMI) [...] MD 01/05/25 1334 Signed By: 01/05/25 1355 [facility]08-28-2025 [place] [address] Cardiology Progress Note Signed Patient: Mary Mcadams MR#: [id number] : 1955 Acct:[id number] Age/Sex: 69 / M Adm Date: 5 Loc: Room: [address] [place] [address] Type: ADM IN Attending Dr: Jostin Larose [...] 2.3 A&P - Cardiology (1) Non-ST elevation DC (NSTEMI): Code(s): I21.4 - Non-ST elevation (NSTEMI) [...] MD 01/09/25 1044 Signed By: 01/09/25 1047 [facility]08-27-2025 Progress note Author Chacho Burroughs [facility]Note Date/TimeAugust 2024 4:24[place] [address] Cardiology Progress Note Signed Patient: Mary Mcadams MR#: [id number] : 1955 Acct:[id number] Age/Sex: 69 / M Adm Date: 5 Loc: Room: [address] [place] [address] Type: ADM IN Attending Dr: Jostin Larose [...] L A&P - Cardiology (1) Non-ST elevation DC (NSTEMI): Code(s): I21.4 - Non-ST elevation (NSTEMI) [...] <Electronically signed by MD Chacho Burroughs> 01/08/25 8250 [facility] Work Phone: 1(534) 642-150808-27-2025 [place] [address] Cardiology Progress Note Signed Patient: Mary Mcadams MR#: [id number] : 1955 Acct:[id number] Age/Sex: 69 / M Adm Date: 5 Loc: Room: [address] [place] [address] Type: ADM IN Attending Dr: Jostin Larose [...] L A&P - Cardiology (1) Non-ST elevation DC (NSTEMI): Code(s): I21.4 - Non-ST elevation (NSTEMI) [...] MD 01/08/25 1141 Signed By: 01/08/25 1624 [facility]08-27-2025 Progress note Author Jostin Larose [facility]Note Date/TimeAugust 2024 12:58pm [place] [address] Hospitalist Progress Note Signed Patient: Mary Mcadams MR#: [id number] : 1955 Acct:[id number] Age/Sex: 69 / M Adm Date: 5 Loc: Room: [address] [place] [address] Type: ADM IN Attending Dr: Jostin Larose [...] initiate oral magnesium daily. (2) Non-ST elevation DC (NSTEMI): Plan: Secondary to CHF exacerbation (3) History of sarcoidosis: Plan: Likely component ? Will order DuoNebs today (4) Acute on chronic hypoxic respiratory failure: Plan: Continue to titrate oxygen as able to Plan ? DVT prophylaxis addressed ? Regular diet ? Full code Documented By: Jostin Larose DO 01/08/25 1255 Signed By: <Electronically signed by Jostin Larose DO> 01/08/25 125 [facility] Work Phone: 1(536) 636-351608-27-2025 Progress noteJason [place] [id number] Hospitalist Progress Note Signed Patient: Mary Mcadams MR#: [id number] : 1955 Acct:[id number] Age/Sex: 69 / M Adm Date: Loc: 4 Room: 5M4827-0 Type: ADM IN Attending Dr: Jostin Larose [...] initiate oral magnesium daily. (2) Non-ST elevation DC (NSTEMI): Plan: Secondary to CHF exacerbation (3) History of sarcoidosis: Plan: Likely component ? Will order DuoNebs today (4) Acute on chronic hypoxic respiratory failure: Plan: Continue to titrate oxygen as able to Plan ? DVT prophylaxis addressed ? Regular diet ? Full code Documented By: Jostin Larose DO 01/08/251254 Signed By: 01/08/25 1258 [facility]08-26-2025 Progress note Author Chacho Burroughs [facility]Note Date/TimeAugust 2024 10:37am [place] [address] Cardiology Progress Note Signed Patient: Mary Mcadams MR#: [id number] : 1955 Acct:[id number] Age/Sex: 69 / M Adm Date: 5 Loc: Room: [address] [place] [address] Type: ADM IN Attending Dr: Jostin Larose [...] L A&P - Cardiology (1) Non-ST elevation DC (NSTEMI): Code(s): I21.4 - Non-ST elevation (NSTEMI) [...] signed by MD Chacho Burroughs> 01/07/25 1037 [facility] Work Phone: 1(818) 303-577508-26-2025 Progress note Author Jostin Larose [facility]Note Date/TimeAugust 2024 10:09am [place] [address] Hospitalist Progress Note Signed Patient: Mary Mcadams MR#: [id number] : 1955 Acct:[id number] Age/Sex: 69 / M Adm Date: 5 Loc: 4 Room: 5R3438-3 Type: ADM IN Attending Dr: Jostin Larose [...] A&P - Hospitalist Assessment/Plan (1) Non-ST elevation DC (NSTEMI): Plan: Secondary to CHF exacerbation (2) [...] signed by Jostin Larose DO> 01/07/25 1009 [facility] Work Phone: 1(925) 850-242608-26-[address] [address] Cardiology Progress Note Signed Patient: Mary Mcadams MR#: [id number] : 1955 Acct:[id number] Age/Sex: 69 / M Adm Date: 5 Loc: 4 Room: [address] [place] [address] Type: ADM IN Attending Dr: Jostin Larose [...] L A&P - Cardiology (1) Non-ST elevation DC (NSTEMI): Code(s): I21.4 - Non-ST elevation (NSTEMI) [...] Burroughs MD 01/07/25 1031 Signed By: 01/07/[address] [place], [place] 8012708-26-2025 Progress noteJason V[place] [id number] Hospitalist Progress Note Signed Patient: Mary Mcadams MR#: [id number] : 1955 Acct:[id number] Age/Sex: 69 / M Adm Date: 5 Loc: Room: [address] [place] [address] Type: ADM IN Attending Dr: Jostin Larose [...] A&P - Hospitalist Assessment/Plan (1) Non-ST elevation DC (NSTEMI): Plan: Secondary to CHF exacerbation (2) [...] DO 01/07/25 1001 Signed By: 01/07/25 1009 [facility]08-25-2025 Progress note Author Jostin Larose [facility]Note Date/TimeAugust 2024 3:06pmM[place] [address] Hospitalist Progress Note Signed Patient: Mray Mcadams MR#: [id number] : 1955 Acct:[id number] Age/Sex: 69 / M Adm Date: 5 Loc: Room: [address] [place] [address] Type: ADM IN Attending Dr: Jostin Larose [...] A&P - Hospitalist Assessment/Plan (1) Non-ST elevation DC (NSTEMI): Plan 1. Acute decompensated HFrEF Fdnet-zd-suvk ultrasound shows severely depressed LVEF. This is [...] signed by Jostin Larose DO> 01/06/25 1506 [facility] Work Phone: 1(664) 107-672808-25-2025 [place] [address] Hospitalist Progress Note Signed Patient: Mary Mcadams MR#: [id number] : 1955 Acct:[id number] Age/Sex: 69 / M Adm Date: 5 Loc: Room: [address] [place] [address] Type: ADM IN Attending Dr: Jostin Larose [...] A&P - Hospitalist Assessment/Plan (1) Non-ST elevation DC (NSTEMI): Plan 1. Acute decompensated HFrEF Fdtcy-ck-xijt ultrasound shows severely depressed LVEF. This is [...] DO 01/06/25 1504 Signed By: 01/06/25 1506 [facility]08-25-2025 Progress note Author Chacho Burroughs [facility]Note Date/TimeAugust 2024 11:44am [place] [address] Cardiology Progress Note Signed with Addenda Patient: Mary Mcadams MR#: [id number] : 1955 Acct:[id number] Age/Sex: 69 / M Adm Date: 5 Loc: Room: [address] [place] [address] Type: ADM IN Attending Dr: Jostin Larose [...] Sens A&P - Cardiology (1) Non-ST elevation DC (NSTEMI): Code(s): I21.4 - Non-ST elevation (NSTEMI) [...] <Electronically signed by MD Chacho Burroughs> 01/06/25 1148 [facility] Work Phone: 1(375) 662-877708-25-2025 Progress noteJason [place] [id number] Cardiology Progress Note Signed with Addenda Patient: Mary Mcadams MR#: [id number] : 1955 Acct:[id number] Age/Sex: 69 / M Adm Date: 5 Loc: 4P Room: [address] [place] [address] Type: ADM IN Attending Dr: Jostin Larose [...] Sens A&P - Cardiology (1) Non-ST elevation DC (NSTEMI): Code(s): I21.4 - Non-ST elevation (NSTEMI) [...] MD 01/06/25 1140 Signed By: 01/06/25 1142 [facility]08-24-2025 Progress note Author Altaf Jones [facility] Date/TimeAugust 2024 2:09[place] [address] Hospitalist Progress Note Signed Patient: Mary Mcadams MR#: [id number] : 1955 Acct:[id number] Age/Sex: 69 / M Adm Date: 5 Loc: Room: [address] [place] [address] Type: ADM IN Attending Dr: Altaf Jones MD Copies to: ~ Date of Service: 01/05/2025 Subjective Subjective Narrative: Patient has obvious orthopnea when laying flat. Dry cough. No chest pain Heart regular, no gallop rub. Positive JVD. Bixvh-fn-ozfm ultrasound with severely decreased LVEF. No effusion. [...] A&P - Hospitalist Assessment/Plan (1) Non-ST elevation DC (NSTEMI): Plan 1. Acute decompensated HFrEF Uxowh-fy-qbbz ultrasound shows severely depressed LVEF. This is [...] home Documented By: Altaf Jones MD 01/05/25 1400 Signed By: <Electronically signed by Altaf Jones MD> 01/05/25 1402 [facility] Work Phone: 1(178) 478-946008-24-2025 [place] [address] Hospitalist Progress Note Signed Patient: Mary Mcadams MR#: [id number] : 1955 Acct:[id number] Age/Sex: 69 / M Adm Date: 5 Loc: 4 Room: [address] [place] [address] Type: ADM IN Attending Dr: Altaf Jones MD Copies to: ~ Date of Service: 01/05/2025 Subjective Subjective Narrative: Patient has obvious orthopnea when laying flat. Dry cough. No chest pain Heart regular, no gallop rub. Positive JVD. Aauve-ii-folj ultrasound with severely decreased LVEF. No effusion. [...] A&P - Hospitalist Assessment/Plan (1) Non-ST elevation DC (NSTEMI): Plan 1. Acute decompensated HFrEF Jzgcg-zu-arng ultrasound shows severely depressed LVEF. This is [...] MD 01/05/25 1402 Signed By: 01/05/25 1409 [facility]08-24-2025 Radiology Diagnostic study note [facility] [place] [address] [place] [address] CT Scan Report Signed Patient: Mary Mcadams MR#: [id number] : 1955 Acct:[id number] Age/Sex: 69 / M ADM Date: 5 Loc: Room: [address] [place] [address] Type: ADM IN Attending Dr: Altaf Jones [...] Varela M.D. 01/05/2025 11:46 AM Dictation Location: [place] [address] Transcribed By: [facility] 01/05/25 1146 Dictated By: Juliocesar Varela II, MD 01/05/25 1138 Signed By: 01/05/25 1146 [facility] Work Phone: 1(963) 608-893208-24-2025 History and physical note Author Elsie Leonard [facility] Date/TimeAugust 2024 4:14[place] [address] Hospitalist H&P Signed Patient: Mary Mcadams MR#: [id number] : 1955 Acct:[id number] Age/Sex: 69 / M Adm Date: 5 Loc: Room: [address] [place] [address] Type: ADM IN Attending Dr: Elsie Leonard [...] not reveal any pulmonary embolism [facility] Medical History (Updated 01/05/25 @ 01:19 by [...] % (Auto) 12.3 % (.) 01/04/25 22:10 [place] % (Auto) 6.2 % (.) 01/04/25 22:10 Eos % (Auto) 3.2 % (.) 01/04/25 22:10 Baso % (Auto) 0.6 % (.) 01/04/25 22:10 Nucleat RBC Rel Count 0.1 /100 WBC (0-0.5) 01/04/25 22:10 Neut # (Auto) 7.9 x10E3/uL (1.8-7.7) H 01/04/25 22:10 Lymph # (Auto) 1.2 x10E3/uL (1.00-4.8) 01/04/25 22:10 [place] # (Auto) 0.6 x10E3/uL (0.0-0.8) 01/04/25 22:10 [...] Assessment & Plan Assessment/Plan (1) Non-ST elevation DC (NSTEMI): Plan 1. Acute on chronic (2 [...] <Electronically signed by Elsie Leonard MD> 01/05/25 0410 [facility] Work Phone: 1(210) 355-355308-24-2025 History and physical noteJason [place] [id number] Hospitalist H&P Signed Patient: Mary Mcadams MR#: [id number] : 1955 Acct:[id number] Age/Sex: 69 / M Adm Date: 5 Loc: 4P Room: 9Y7444-3 Type: ADM IN Attending Dr: Elsie Leonard [...] not reveal any pulmonary embolism [facility] Medical History (Updated 01/05/25 @ 01:19 by [...] % (Auto) 12.3 % (.) 01/04/25 22:10 [place] % (Auto) 6.2 % (.) 01/04/25 22:10 Eos % (Auto) 3.2 % (.) 01/04/25 22:10 Baso % (Auto) 0.6 % (.) 01/04/25 22:10 Nucleat RBC Rel Count 0.1 /100 WBC (0-0.5) 01/04/25 22:10 Neut # (Auto) 7.9 x10E3/uL (1.8-7.7) H 01/04/25 22:10 Lymph # (Auto) 1.2 x10E3/uL (1.00-4.8) 01/04/25 22:10 [place] # (Auto) 0.6 x10E3/uL (0.0-0.8) 01/04/25 22:10 [...] Assessment & Plan Assessment/Plan (1) Non-ST elevation DC (NSTEMI): Plan 1. Acute on chronic (2 [...] MD 01/05/25 0354 Signed By: 01/05/25 0414 [facility]08-24-2025 Evaluation note* Diagnosis Onset Date Resolution Status Admit Date Takotsubo cardiomyopathy 2024 acuteAugust 2024 1:53amAcute on chronic hypoxic respiratory failure inactiveAugust 2024 1:53amHistory of sarcoidosisinactiveAugust 2024 1:53amNon-ST elevation DC (NSTEMI)inactiveAugust 2024 1:53am Bronchiectasis, uncomplicatedacuteSept2024 1:09pmBullous emphysema [...] February 16, 2025 2:24amPulmonary sarcoidosisacuteOctober 2024 2:24am [facility] Work Phone: 1(144) 387-654308-24-2025 Evaluation note* Diagnosis Onset Date Resolution Status Admit Date Takotsubo cardiomyopathy 2024 acuteAugust 2024 1:53amAcute on chronic hypoxic respiratory failure inactiveAugust 2024 1:53amHistory of sarcoidosisinactiveAugust 2024 1:53amNon-ST elevation DC (NSTEMI)inactiveAugust 2024 1:53amBullous emphysemaacuteSeptember 2024 1:09pmChronic respiratory [...] 2:24amMyalgia inactiveOctober 2024 2:24amPulmonary sarcoidosisinactiveOctober 2024 2:24am [facility] Work Phone: 1(445) 440-438807-08-2025 Evaluation note* Diagnosis Onset Date Resolution Status Admit Date Anemia acuteJuly 2024 11:39amAtrial fibrillationacuteJuly 2024 11:39amChronic HFrEF (heart failure with reduced ejection fraction)acuteJuly 2024 11:39am Chronic respiratory failure with hypoxiaacuteJuly 2024 11:39amNonischemic cardiomyopathyacuteJuly 2024 11:39amSarcoidosis of lungresolvedJuly 2024 11:39amAcute exacerbation of chronic obstructive pulmonary disease (COPD) inactiveJuly 2024 11:39amAcute cystitisnoneactiveJuly 2024 11:39am Takotsubo iffmgmepenvwxu5841zusggTjineq 2024 1:53amAcute on chronic hypoxic respiratory failureinactiveAugust 2024 1:53amHistory of sarcoidosisinactiveAugust 2024 1:53amNon-ST elevation DC (NSTEMI)inactive January 05, 2025 1:53amBronchiectasis, uncomplicatedacuteSept2024 1:09pmBullous emphysemaacuteSept2024 1:09pmCardiac sarcoidosisacute January 21, 2025 1:09pmChronic respiratory failure with hypoxiaacuteSept2024 1:09pmHistory of aspergillomaacuteSept2024 1:09pmPulmonary sarcoidosisacuteSept2024 1:09pmAcute on chronic hypoxic respiratory failureacuteOctober 2024 2:24amCOPD exacerbationacuteOctober 2024 2:24amHx of sarcoidosisacuteOctober 2024 2:24amMyalgiaacuteOctober 2024 2:24am [facility] Work Phone: 1(156) 251-679207-01-2025 Discharge summary Author Hoang Conner [facility] Date/TimeJuly 2024 2:14[place] [address] Discharge Summary Signed Patient: Mary Mcadams MR#: [id number] : 1955 Acct:[id number] Age/Sex: 69 / M Adm Date: 5 Loc: Room: [address] [place] [address]: Hoang Conner DO Copies to: [...] Plan Discharge Plan Patient Disposition: Home Health [facility] Activity: No Activity Restriction Diet: Low-Fat and [...] at HS and napping DME [facility] Ellipta 200-62.5-25 mcg blister with device [...] Continuity of Care Document Health Concerns: A [facility] screening has identified you as FRAIL [...] Strong:Four Ways to Beat the Frailty Risk https://www.[facility].org/health/itvslzfu-cxf-qfjsbnvnbi/st nx-lwdpyx-bnfh- hoge-oy-jlcs-kca-dvrsdrx-pcvh Exam Physical Exam Vital Signs: Temp Pulse [...] Neut % (Auto) 93.0, Lymph% (Auto) 4.1, [place] % (Auto) 2.8, Eos % (Auto) 0.0, Baso % (Auto) 0.1, Nucleat RBC Rel Count 0.0, Neut # (Auto) 17.1 H, Lymph # (Auto) 0.7 L, [place] # (Auto) 0.5, Eos # (Auto) 0.0, [...] <Electronically signed by Hoang Conner DO> 11/12/[address] [place] [address] Work Phone: 1(821) 703-670607-01-2025 Discharge [place]Jason [place] [id number] Discharge Summary Signed Patient: Mary Mcadams MR#: [id number] : 1955 Acct:[id number] Age/Sex: 69 / M Adm Date: 5 Loc: Room: [address] [place] [address]: Hoang Conner DO Copies to: [...] Plan Discharge Plan Patient Disposition: Home Health [facility] Activity: No Activity Restriction Diet: Low-Fat and [...] at HS and napping DME [facility] Ellipta 200-62.5-25 mcg blister with device [...] Continuity of Care Document Health Concerns: A [facility] screening has identified you as FRAIL [...] Strong:Four Ways to Beat the Frailty Risk https://www.[facility].org/health/mcwhbaiq-awo-msknqpzqcd/st tn-zcbkao-wlzs- folx-ws-umyr-vwx-fgwwyap-eanp Exam Physical Exam Vital Signs: Temp Pulse [...] Neut % (Auto) 93.0, Lymph% (Auto) 4.1, [place] % (Auto) 2.8, Eos % (Auto) 0.0, Baso % (Auto) 0.1, Nucleat RBC Rel Count 0.0, Neut # (Auto) 17.1 H, Lymph # (Auto) 0.7 L, [place] # (Auto) 0.5, Eos # (Auto) 0.0, [...] 11/12/24 12 51 Signed By: 11/12/24 1414 [facility]06-30-2025 Progress note Author Hoang Conner [facility] Date/TimeJune 2024 1:12pAnthony [place] [id number] Progress Note Signed Patient: Mary Mcadams MR#: [id number] : 1955 Acct:[id number] Age/Sex: 69 / M Adm Date: 5 Loc: 3T Room: [address] [place] [address] Type: ADM IN Attending Dr: Hoang Conner [...] <Electronically signed by Hoang Conner DO> 11/11/24 [facility]2 [facility] Work Phone: 1(276) 449-735506-30-[address] [address] Progress Note Signed Patient: Mary Mcadams MR#: [id number] : 1955 Acct:[id number] Age/Sex: 69 / M Adm Date: 5 Loc: 3T Room: [address] [place] [address] Type: ADM IN Attending Dr: Hoang Conner [...] DO 11/11/24 13 10 Signed By: 11/11/[address] [place], [place] 8333706-30-2025 History and physical note Author Silvano Reed [facility] Date/TimeJune 2024 3:30[place] [address] Hospitalist H&P Signed Patient: Mary Mcadams MR#: [id number] : 1955 Acct:[id number] Age/Sex: 69 / M Adm Date: 5 Loc: ER Room: Type: [facility] ER Attending Dr: Copies to: Adam Del [...] mentioned elsewhere in the documentation. [facility] Medical History (Updated 11/11/24 @ 03:27 by [...] % (Auto) 18.7 % (.) 11/10/24 23: [place] % (Auto) 9.3 % (.) 11/10/24 23: Eos % (Auto) 5.0 % (.) 11/10/24 23: Baso % (Auto) 0.5 % (.) 11/10/24 23: Nucleat RBC Rel Count 0.1 /100 WBC (0-0.5) 11/10/24 23: Neut # (Auto) 4.3 x10E3/uL (1.8-7.7) 11/10/24 23: Lymph # (Auto) 1.2 x10E3/uL (1.00-4.8) 11/10/24 23:30 [place] # (Auto) 0.6 x10E3/uL (0.0-0.8) 11/10/24 23:30 [...] pH 5.5 (5.0-9.0) 11/10/24 23:15 Ur Specific [place] 1.010 (1.001-1.030) 11/10/24 23:15 Urine Protein Negative [...] <Electronically signed by Silvano Reed DO> 11/11/24329 [facility] Work Phone: 1(370) 683-143306-30-2025 Evaluation note* Diagnosis Onset Date Resolution Status [...] (COPD)inactively 2024 11:39amAcute cystitis noneactively 2024 11:39am [facility] Work Phone: 1(478) 617-325806-30-2025 Evaluation note* Diagnosis Onset Date Resolution Status [...] 1:53amHistory of sarcoidosisacuteAugust 2024 1:53am Non-ST elevation DC (NSTEMI)acuteAugust 2024 1:53am [facility] Work Phone: 1([phone]) 166-187606-30-2025 Evaluation note* Diagnosis Onset Date Resolution Status Admit Date Bullous emphysema acuteJune 2024 3:15amChronic respiratory failure with hypoxiaacuteJune 2024 3:15amPulmonary sarcoidosisacuteJune 2024 3:15amAcute exacerbation of chronic obstructive pulmonary disease (COPD)inactiveJune 2024 3:15amAcute UTIdeletedJune 2024 3:15amArrhythmiadeletedNov[facility] 2024 3:15amBreath shortnessdeletedNovant Health [facility]ale 2024 3:15amCorticosteroid dependencedeletedNovant Health [facility]ale 2024 3:15am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deletedNovant Health [facility] Hospitale 2024 3:15amAnemiaacuteJuly 2024 11:39amAtrial fibrillationacutely 2024 11:39amChronic HFrEF (heart failure with reduced ejection fraction) acuteJuly 2024 11:39amChronic respiratory failure with hypoxiaacuteJuly 2024 11:39amNonischemic cardiomyopathyacuteJuly 2024 11:39am Sarcoidosis of lungresolvedJuly 2024 11:39amAcute exacerbation of chronic obstructive pulmonary disease (COPD)inactiveJuly 2024 11:39amAcute cystitis noneactively 2024 11:39amAcute on chronic hypoxic respiratory failure acuteAugust 2024 1:53amHistory of sarcoidosisacuteAugust 2024 1:53am Non-ST elevation DC (NSTEMI)acuteAugust 2024 1:53amTakotsubo cardiomyopathyacuteAugust 2024 1:53am [facility] Work Phone: 1(407) 990-367806-30-2025 Evaluation note* Diagnosis Onset Date Resolution Status Admit Date Bullous emphysema acuteJune 2024 3:15amChronic respiratory failure with hypoxiaacuteJune 2024 3:15amPulmonary sarcoidosisacuteJune 2024 3:15amAcute exacerbation of chronic obstructive pulmonary disease (COPD)inactiveJune 2024 3:15amAcute UTIdeletedJune 2024 3:15amArrhythmiadeletedNov[facility]ale 2024 3:15amBreath shortnessdeletedNov[facility] Health [facility]ale 2024 3:15amCorticosteroid dependencedeletedJune 2024 3:15am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deletedNovant Health [facility]2024 3:15amAnemiaacuteJuly 2024 11:39amAtrial fibrillationacuteJuly 2024 11:39amChronic HFrEF (heart failure with reduced ejection fraction) acuteJuly 2024 11:39amChronic respiratory failure with hypoxiaacuteJuly 2024 11:39amNonischemic cardiomyopathyacuteJuly 2024 11:39am Sarcoidosis of lungresolvedJuly 2024 11:39amAcute exacerbation of chronic obstructive pulmonary disease (COPD)inactiveJuly 2024 11:39amAcute cystitis noneactiveJuly 2024 11:39amTakotsubo qctxjyqbmhlsqv2497neascZgvpwz 2024 1:53amAcute on chronic hypoxic respiratory failureinactiveAugust 2024 1:53amHistory of sarcoidosisinactiveAugust 2024 1:53amNon-ST elevation DC (NSTEMI)inactiveAugust 2024 1:53amBronchiectasis, uncomplicatedacute Vanessa 2024 1:09pmBullous emphysemaacuteSeptember 2024 1:09pm Cardiac sarcoidosisacuteSeptember 2024 1:09pmChronic respiratory failure with hypoxiaacuteSeptember 2024 1:09pmHistory of aspergillomaacuteSeptember 2024 1:09pmPulmonary sarcoidosisacuteSeptember 2024 1:09pm [facility] Work Phone: 1([phone] 137-953706-30-2025 [place] [address] Hospitalist H&P Signed Patient: Mary Mcadams MR#: [id number] : 1955 Acct:[id number] Age/Sex: 69 / M Adm Date: 5 Loc: ER Room: Type: [facility] ER Attending Dr: Copies to: Adam Del [...] mentioned elsewhere in the documentation. [facility] Medical History (Updated 11/11/24 @ 03:27 by [...] Lymph % (Auto) 18.7 % (.) 11/10/24: [place] % (Auto) 9.3 % (.) 11/10/24: Eos % (Auto) 5.0 % (.) 11/10/24: Baso % (Auto) 0.5 % (.) 11/10/24: Nucleat RBC Rel Count 0.1 /100 WBC (0-0.5) 11/10/24: Neut # (Auto) 4.3 x10E3/uL (1.8-7.7) 11/10/24: Lymph # (Auto) 1.2 x10E3/uL (1.00-4.8) 11/10/24 23:30 [place] # (Auto) 0.6 x10E3/uL (0.0-0.8) 11/10/24: Eos [...] pH 5.5 (5.0-9.0) 11/10/24 23:15 Ur Specific [place] 1.010 (1.001-1.030) 11/10/24 23:15 Urine Protein Negative [...] Reed DO 0320 Signed By: 11/11/24 0330 [facility]06-19-2025 History of Present illness Narrative * [...] Diskus) 500-50 mcg/dose diskus inhaler 1 puff jgmehlhyloh-uqyektwig-byvtqzjo (TRELEGY-ELLIPTA) 200-62.5-25 mcg blister with device Opmwrpektje-Qdyscueri-Crsjgofw (Trelegy Ellipta) 200-62.5-25 mcg blister with device Active 1 INH INHALATION [id number] October 22, 2023 11:00pm Rinse after use [...] exam, discussion and plan. documented in this encounterMcC[facility] Work Phone: 1(844) 307-847806-19-2025 Instructions* Patient Instructions* Audra Morales LPN - [...] of valsartan Follow up documented in this encounterMcCull[facility] Work Phone: 1(167) 288-271304-21-2025 Evaluation note* Diagnosis Onset Date Resolution Status [...] dependenceacuteJun2024 3:15am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acuteJun2024 3:15amPulmonary sarcoidosisacuteJun2024 3:15am [facility] Work Phone: 1(198) 925-204904-21-2025 Evaluation note* Diagnosis Onset Date Resolution Status [...] of lungresolvedJuly 2024 11:39amAcute cystitisnoneactiveJuly 2024 11:39am [facility] Work Phone: 1(134) 408-379103-24-2025 NotePatient Education Urology Benign Prostatic Hyperplasia Benign [...] Follow these instructions at home: ??? Take jitq-yiw-kxqwtnx and prescription medicines only as told by [...] symptoms do not get (more content not included)...[facility]03-13-2025 History of Present illness Narrative* Harriet Gibson LPN - 07/25/2024 10:00 AM EDT Patient here for EKG visit ordered by Dr. Gonzalez due to a-fib and prolonged QT due to dofetilide. Dofetilide was decreased to 125mcg in hospital stay; discharged from [facility] 07.09.24. Dr. Rodriguez in suite to review [...] m (6' 1 ) documented in this [facility] Work Phone: 1(520) 130-934503-11-2025 History of Present illness Narrative* Edward Orr DO - 07/23/2024 11:59 PM EDT Patient Name: Mary Mcadams Date of : 1955 Date of Service: 07/23/2024 Facility: [facility] Type of Visit: Skilled Visit Subjective Mary Mcadams is a 68 y.o. male seen today at intermediate facility for skilled visit. Mary is feeling [...] Exam Vitals reviewed. Exam conducted with a business process lead present (Flex Zhong MS3). Constitutional: General: He [...] BY: Edward Orr DO documented [facility] History of Present illness Narrative* Edward Orr DO - 07/16/2024 11:59 PM EST Patient Name: Mary Mcadams Date of : 1955 Date of Service: 07/16/2024 Facility: [facility] Type of Visit: Skilled Visit Subjective Mary Mcadams is a 68 y.o. male seen today at intermediate facility for therapy visit. Staff reports that [...] Exam Vitals reviewed. Exam conducted with a business process lead present (Flex Zhong MS3). Constitutional: General: He [...] BY: Edward Orr DO documented in this encounterDelaware [facility]02-26-2025 History of Present illness Narrative* Edward Orr DO - 07/10/2024 11:59 PM EST Patient Name: Mary Mcadams Date of : 1955 Date of Service: 07/10/2024 Facility: [facility] Type of Visit: Admission H&P Subjective Mary Mcadams is a 68 y.o. male seen today at intermediate facility for No chief complaint on file. . Mary presents to [facility] from [facility] where he was admitted for [...] has a follow up appointment with his hazardous material specialist next month. No past medical history on [...] Plan 1. Chronic respiratory failure with hypoxia ([facility]) 2. Closed wedge compression fracture of T8 vertebra with routine healing, subsequent encounter 3. Closed wedge compression fracture of T7 vertebra with routine healing, subsequent encounter 4. Sarcoidosis of lung ([facility]) 5. Chronic systolic congestive heart failure ([facility]) 6. Sarcoid myocarditis 7. Gross hematuria 8. Hypo-osmolality and hyponatremia 9. Hypokalemia 10. Alcohol dependence, 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[facility]) 11. Benign prostatic hyperplasia with lower urinary tract symptoms, symptom details unspecified 12. Other spondylosis, lumbar region 13. Muscle weakness (generalized) 14. Encephalopathy, unspecified type 15. Occlusion and stenosis of right carotid artery 16. Gastroesophageal reflux disease without esophagitis 17. Chronic atrial fibrillation ([facility]) Admit to [facility] for therapies. Continue medications as before Full code Continue salinas catheter Good rehab [facility]ia ELECTRONICALLY SIGNED BY: Edward Orr DO documented in this encounterHolden Memorial HospitalFitz Lodge [id number] Discharge summary Author Altaf Jones [facility] Date/TimeFebruary 2024 1:09pm [place] [address] Discharge Summary Signed Patient: Mary Mcdaams MR#: [id number] : 1955 Acct:[id number] Age/Sex: 68 / M Adm Date: 5 Loc: 3T Room: [address] [place] [address]: Altaf Jones MD Copies to: [...] 45 Discharge Plan Discharge Plan Patient Disposition: [facility] Facility Activity: No Activity Restriction Diet: Regular [...] at HS and napping DME [facility] Ellipta 200-62.5-25 mcg blister with device [...] intranasal DAILY Follow Up: [facility] [Outside] - 08/05/24 1:15 pm (Previously scheduled appointment with Dr. Norman. ) Shannon Gonzalez MD [Active Staff] - 09/13/24 2:10 pm (Have an EKG done in my office on 07/18/24 at 2pm) Adam Del Valle DO [Primary Care Provider] - (Please arrange a follow-up appointment once dischargedfrom SNF. ) Continuity of Care Document Health Concerns: A [facility] screening has identified you as FRAIL [...] Strong:Four Ways to Beat the Frailty Risk https://www.[facility].org/health/qdfzjuyw-ncv-gtisrddqyl/st jl-akqcky-dwyy- yoap-mv-lber-djq-kgagxtv-ethn Exam Physical Exam Vital Signs: Temp Pulse [...] signed by Altaf Jones MD> 07/09/24 1309 [facility] Work Phone: 1(545) 603-127802-25-2025 Discharge summaryJason [place] [id number] Discharge Summary Signed Patient: Mary Mcadams MR#: [id number] : 1955 Acct:[id number] Age/Sex: 68 / M Adm Date: 5 Loc: 3T Room: [address] [place] [address]: Altaf Jones MD Copies to: [...] 45 Discharge Plan Discharge Plan Patient Disposition: [facility] Facility Activity: No Activity Restriction Diet: Regular [...] -Weighted utensils -Care to be managed by [facility] providers. Prescriptions: New dofetilide 125 mcg [...] Instructions: 2 liters at HS and napping [facility] Ellipta 200-62.5-25 mcg blister with [...] Continuity of Care Document Health Concerns: A [facility] screening has identified you as FRAIL [...] Strong:Four Ways to Beat the Frailty Risk https://www.[facility].org/health/qmzxnfvr-vvh-iktxuntzms/st ky-lsrjiq-wwch- yotg-oq-pqgl-kgc-cgawijk-zmcz Exam Physical Exam Vital Signs: Temp Pulse [...] MD 07/09/24 1301 Signed By: 07/09/24 1309 [facility]02-24-2025 Progress note Author Ambrose Hsieh [facility]Note Date/TimeFebruary 2024 5:36pm [place] [address] Hospitalist Progress Note Signed Patient: Mary Mcadams MR#: [id number] : 1955 Acct:[id number] Age/Sex: 68 / M Adm Date: 5 Loc: Room: [address] [place] [address] Type: ADM IN Attending Dr: Ambrose Hsieh [...] spray 07/04/24 09:00 07/08/24 08:33 Fluticasone Propionate [place] 120 [place]/16 Gm Bottle INTRANASAL 07/04/25 08:59 1 spray [...] stable for discharge to SNF ([facility] [place]) once pre-cert approved Hematoma/infectious process to left [...] <Electronically signed by Ambrose Hsieh MD> 07/08/24 7878 [facility] Work Phone: 1(737) 134-233002-24-2025 [place] [address] Hospitalist Progress Note Signed Patient: Mary Mcadams MR#: [id number] : 1955 Acct:[id number] Age/Sex: 68 / M Adm Date: 5 Loc: 3T Room: [address] [place] [address] Type: ADM IN Attending Dr: Ambrose Hsieh [...] spray 07/04/24 09:00 07/08/24 08:33 Fluticasone Propionate [place] 120 [place]/16 Gm Bottle INTRANASAL 07/04/25 08:59 1 spray [...] stable for discharge to SNF ([facility] [place]) once pre-cert approved Hematoma/infectious process to left [...] MD 07/08/24 1040 Signed By: 07/08/24 1736 [facility]02-24-2025 Progress note Author Shannon Gonzalez [facility] Date/TimeFebruary 2024 12:45pm [place] [address] Cardiology Progress Note Signed with Addenda Patient: Mary Mcadams MR#: [id number] : 1955 Acct:[id number] Age/Sex: 68 / M Adm Date: 5 Loc: Room: [address] [place] [address] Type: ADM IN Attending Dr: Ambrose Hsieh [...] Cont Tikosyn 125 mcg BID. [facility]. 2?continue other home medications 3-continuous telemetry. Documented By: Shannon Gonzalez MD, FACC 5 1230 Signed By: <Electronically signed by MD POOL Gonzalez> 07/08/24 1242 [facility] Work Phone: 1(885) 189-170902-24-2025 Progress [place] [id number] Cardiology Progress Note Signed with Addenda Patient: Mary Mcadams MR#: [id number] : 1955 Acct:[id number] Age/Sex: 68 / M Adm Date: 5 Loc: Room: [address] [place] [address] Type: ADM IN Attending Dr: Ambrose Hsieh [...] 3-continuous telemetry. Documented By: Shannon Gonzalez MD, [facility] 5 1230 Signed By: 07/08/24 1242 [facility]02-23-2025 Progress note Author Andres Herrera [facility] Date/TimeFebruary 2024 4:21pm [place] [address] Cardiology Progress Note Signed Patient: Mary Mcadams MR#: [id number] : 1955 Acct:[id number] Age/Sex: 68 / M Adm Date: 5 Loc: Room: [address] [place] [address] Type: ADM IN Attending Dr: Ambrose Hsieh [...] signed by Andres Herrera MD> 07/07/24 1621 [facility] Work Phone: 1(730) 180-116902-23-2025 Progress note Author Ambrose Hsieh [facility] Date/TimeFebruary 2024 2:56pm [place] [address] Hospitalist Progress Note Signed Patient: Mary Mcadams MR#: [id number] : 1955 Acct:[id number] Age/Sex: 68 / M Adm Date: 5 Loc: Room: [address] [place] [address] Type: ADM IN Attending Dr: Ambrose Hsieh [...] spray 07/04/24 09:00 07/07/24 08:55 Fluticasone Propionate [place] 120 [place]/16 Gm Bottle INTRANASAL 07/04/25 08:59 1 spray [...] <Electronically signed by Ambrose Hsieh MD> 07/07/24 [facility]4 [facility] Work Phone: 1(331) 822-583802-23-2025 Progress [place] [id number] Cardiology Progress Note Signed Patient: Mary Mcadams MR#: [id number] : 1955 Acct:[id number] Age/Sex: 68 / M Adm Date: 5 Loc: 3T Room: [address] [place] [address] Type: ADM IN Attending Dr: Ambrose Hsieh [...] Herrera MD 06/16 Signed By: 07/07/24 1621 [facility]02-23-2025 [place] [address] Hospitalist Progress Note Signed Patient: Mary Mcadams MR#: [id number] : 1955 Acct:[id number] Age/Sex: 68 / M Adm Date: 5 Loc: Room: [address] [place] [address] Type: ADM IN Attending Dr: Ambrose Hsieh [...] Tablet PO 07/04/25 20:59 40 mg QPM AELX Administration Budesonide/Formoterol Fumarate 2 puff 07/04/24 09:00 [...] spray 07/04/24 09:00 07/07/24 08:55 Fluticasone Propionate [place] 120 [place]/16 Gm Bottle INTRANASAL 07/04/25 08:59 1 spray [...] Hsieh MD 07/07/24 1016 Signed By: 07/07/24 1846 [facility]02-22-2025 Progress note Author Andres Herrera [facility] Date/TimeFebruary 2024 4:37pm [place] [id number] Cardiology Progress Note Signed Patient: Mary Mcadams MR#: [id number] : 1955 Acct:[id number] Age/Sex: 68 / M Adm Date: 5 Loc: 3T Room: [address] [place] [address] Type: ADM IN Attending Dr: Ambrose Hsieh [...] <Electronically signed by Andres Herrera MD> 07/06/24 1635 [facility] Work Phone: 1(630) 933-975002-22-2025 [place] [id number] Cardiology Progress Note Signed Patient: Mary Mcadams MR#: [id number] : 1955 Acct:[id number] Age/Sex: 68 / M Adm Date: 5 Loc: Room: [address] [place] [address] Type: ADM IN Attending Dr: Ambrose Hsieh [...] Herrera MD 06/16 Signed By: 07/06/24 1637 [facility]02-22-2025 Progress note Author Ambrose Hsieh [facility] Date/TimeFebruary 2024 12:20pm [place] [address] Hospitalist Progress Note Signed with Addenda Patient: Mary Mcadams MR#: [id number] : 1955 Acct:[id number] Age/Sex: 68 / M Adm Date: 5 Loc: Room: [address] [place] [address] Type: ADM IN Attending Dr: Ambrose Hsieh [...] spray 07/04/24 09:00 07/06/24 09:33 Fluticasone Propionate [place] 120 [place]/16 Gm Bottle INTRANASAL 07/04/25 08:59 1 spray [...] signed by Ambrose Hsieh MD> 07/06/24 1217 [facility] Work Phone: 1(765) 134-207002-22-2025 [place] [address] Hospitalist Progress Note Signed with Addenda Patient: Mary Mcadams MR#: [id number] : 1955 Acct:[id number] Age/Sex: 68 / M Adm Date: 5 Loc: Room: [address] [place] [address] Type: ADM IN Attending Dr: Ambrose Hsieh [...] spray 07/04/24 09:00 07/06/24 09:33 Fluticasone Propionate [place] 120 [place]/16 Gm Bottle INTRANASAL 07/04/25 08:59 1 spray [...] MD 07/06/24 1208 Signed By: 07/06/24 1217 [facility]02-21-2025 Consult note Author Shannon Gonzalez [facility] Date/TimeFebruary 2024 4:56pm [place] [address] Cardiology Consult Note Signed Patient: Mary Mcadams MR#: [id number] : 1955 Acct:[id number] Age/Sex: 68 / M Adm Date: 5 Loc: Room: [address] [place] [address] Type: ADM IN Attending Dr: Ambrose Hsieh MD Copies to: DO Shannon Waller MD, [facility] Ambrose Hsieh MD~ Cardiology HPI History of [...] review of system essentially unremarkable. [facility] Medical History Hypotension Hypokalemia Encephalopathy Carotid stenosis, [...] home medications Documented By: Shannon Gonzalez MD, [facility] 5 1647 Signed By: <Electronically signed by [facility] Shannon Gonzalez> 07/05/24 1651 [facility] Work Phone: 1(563) 905-988102-21-2025 Progress note Author Ambrose Hsieh [facility] Date/TimeFebruary 2024 3:42pm [place] [address] Hospitalist Progress Note Signed Patient: Mary Mcadams MR#: [id number] : 1955 Acct:[id number] Age/Sex: 68 / M Adm Date: 5 Loc: Room: [address] [place] [address] Type: ADM IN Attending Dr: Ambrose Hsieh [...] spray 07/04/24 09:00 07/05/24 09:20 Fluticasone Propionate [place] 120 [place]/16 Gm Bottle INTRANASAL 07/04/25 08:59 1 spray [...] signed by Ambrose Hsieh MD> 07/05/24 1542 [facility] Work Phone: 1([phone] 827-336702-21-2025 [place] [address] Cardiology Consult Note Signed Patient: Mary Mcadams MR#: [id number] : 1955 Acct:[id number] Age/Sex: 68 / M Adm Date: 5 Loc: Room: [address] [place] [address] Type: ADM IN Attending Dr: Ambrose Hsieh MD Copies to: DO Shannon Waller MD, [facility] Ambrose Hsieh MD~ Cardiology HPI History of [...] review of system essentially unremarkable. [facility] Medical History Hypotension Hypokalemia Encephalopathy Carotid stenosis, [...] home medications Documented By: Shannon Gonzalez MD, [facility] 5 1647 Signed By: 07/05/24 1656 [facility]02-21-2025 [place] [address] Hospitalist Progress Note Signed Patient: Mary Mcadams MR#: [id number] : 1955 Acct:[id number] Age/Sex: 68 / M Adm Date: 5 Loc: Room: [address] [place] [address] Type: ADM IN Attending Dr: Ambrose Hsieh [...] spray 07/04/24 09:00 07/05/24 09:20 Fluticasone Propionate [place] 120 [place]/16 Gm Bottle INTRANASAL 07/04/25 08:59 1 spray [...] MD 07/05/24 1043 Signed By: 07/05/24 1542 [facility]02-20-2025 Progress note Author Ambrose Hsieh [facility] Date/TimeFebruary 2024 3:43pm [place] [address] Hospitalist Progress Note Signed Patient: Mary Mcadams MR#: [id number] : 1955 Acct:[id number] Age/Sex: 68 / M Adm Date: 5 Loc: 3T Room: [address] [place] [address] Type: ADM IN Attending Dr: Ambrose Hsieh [...] spray 07/04/24 09:00 07/04/24 09:28 Fluticasone Propionate [place] 120 [place]/16 Gm Bottle INTRANASAL 07/04/25 08:59 Not Given DAILY ALEX Lactated Ringer's 1,000 mls @ 75 mls/hr 07/03/24 23:15 07/03/24 23:54 Lactated Ringers IV 07/04/24 12:34 75 mls/hr .[id number] ALEX Administration Ceftriaxone Sodium 1 gm in [...] <Electronically signed by Ambrose Hsieh MD> 07/04/24 [facility]3 [facility] Work Phone: 1(570) 928-376302-20-2025 [place] [address] Hospitalist Progress Note Signed Patient: Mary Mcdaams MR#: [id number] : 1955 Acct:[id number] Age/Sex: 68 / M Adm Date: 5 Loc: 3T Room: [address] [place] [address] Type: ADM IN Attending Dr: Ambrose Hsieh [...] spray 07/04/24 09:00 07/04/24 09:28 Fluticasone Propionate [place] 120 [place]/16 Gm Bottle INTRANASAL 07/04/25 08:59 Not Given DAILY ALEX Lactated Ringer's 1,000 mls @ 75 mls/hr 07/03/24 23:15 07/03/24 23:54 Lactated Ringers IV 07/04/24 12:34 75 mls/hr .[id number] ALEX Administration Ceftriaxone Sodium 1 gm in [...] MD 07/04/24 1015 Signed By: 07/04/24 1543 [facility]02-20-2025 History and physical note Author Maricruz Godoy [facility] Date/TimeFebruary 2024 6:43am [place] [address] Hospitalist H&P Signed Patient: Mary Mcadams MR#: [id number] : 1955 Acct:[id number] Age/Sex: 68 / M Adm Date: 5 Loc: Room: [address] [place] [address] Type: ADM IN Attending Dr: Altaf Jones MD Copies to: MD Adam Carballo DO Paula G Smith, ELEMENTARY PRINCIPAL~ HPI DATE OF EXAMINATION: 07/03/24 CHIEF COMPLAINT: [...] with his medications, he ran out of [employer] meds and his son usually fills his [...] be admitted as inpatient to [facility] daily for pain Review of Systems Review of Systems Review of systems: A 10 point review of systems was obtained, negative unless noted in the HPI or below. [facility] Medical History Hypotension Hypokalemia Encephalopathy Carotid stenosis, [...] % (Auto) 12.4 % (.) 07/03/24 19:45 [place] % (Auto) 9.9 % (.) 07/03/24 19:45 Eos % (Auto) 2.7 % (.) 07/03/24 19:45 Baso % (Auto) 0.7 % (.) 07/03/24 19:45 Nucleat RBC Rel Count 0.0 /100 WBC (0-0.5) 07/03/24 19:45 Neut # (Auto) 4.3 x10E3/uL (1.8-7.7) 07/03/24 19:45 Lymph # (Auto) 0.7 x10E3/uL (1.00-4.8) L 07/03/24 19:45 [place] # (Auto) 0.6 x10E3/uL (0.0-0.8) 07/03/24 19:45 [...] 3 Documented By: Maricruz Godoy APRN 07/03/24 6223 Signed By: <Electronically signed by CHARLEY Godoy> 07/04/24 0942 <Electronically signed by Altaf Jones MD> 07/04/24 0643 [facility] Work Phone: 1([phone]) 310-690102-20-2025 Radiology Diagnostic study [facility] [place] [address] Ultrasound Report Signed Patient: Mary Mcadams MR#: [id number] : 1955 Acct:[id number] Age/Sex: 68 / M ADM Date: 5 Loc: 3T Room: [address] [place] [address] Type: ADM IN Attending Dr: Ambrose Hsieh [...] Baudilio Moura MD07/04/2024 8:38 AM Dictation Location: [place] [address] Tech: Melanie Lawtoncelestino Transcribed By: JEANIE 07/04/24837 Dictated By: Baudilio Moura MD 07/04/24837 Signed By: 07/04/24837 [facility] Work Phone: 1(237) 891-102602-20-2025 [place] [address] Hospitalist Procedure Note Signed Patient: Mary Mcadams MR#: [id number] : 1955 Acct:[id number] Age/Sex: 68 / M Adm Date: 5 Loc: 3T Room: [id number] Type: ADM IN Attending Dr: Altaf Jones MD Copies to: MD Adam Carballo DO~ Hospitalist Procedures Date/Provider PROCEDURE DATE: 07/04/24 PROCEDURE PERFORMED BY: Altaf Jones [facility] Procedure Indication: Urinary retention Procedure performed: [place] [...] MD 07/04/24 0652 Signed By: 07/04/24 0655 [facility]02-20-2025 [place] [address] Hospitalist H&P Signed Patient: Mary Mcadams MR#: [id number] : 1955 Acct:[id number] Age/Sex: 68 / M Adm Date: 5 Loc: Room: [address] [place] [address] Type: ADM IN Attending Dr: Altaf Jones MD Copies to: MD Adam Carballo DO Paula G Smith, ELEMENTARY PRINCIPAL~ HPI DATE OF EXAMINATION: 07/03/24 CHIEF COMPLAINT: [...] with his medications, he ran out of [employer] and his son usually fills his pillbox [...] be admitted as inpatient to [facility] daily for pain Review of Systems Review of Systems Review of systems: A 10 point review of systems was obtained, negative unless noted in the HPI or below. [facility] Medical History Hypotension Hypokalemia Encephalopathy Carotid stenosis, [...] % (Auto) 12.4 % (.) 07/03/24 19:45 [place] % (Auto) 9.9 % (.) 07/03/24 19:45 Eos % (Auto) 2.7 % (.) 07/03/24 19:45 Baso % (Auto) 0.7 % (.) 07/03/24 19:45 Nucleat RBC Rel Count 0.0 /100 WBC (0-0.5) 07/03/24 19:45 Neut # (Auto) 4.3 x10E3/uL (1.8-7.7) 07/03/24 19:45 Lymph # (Auto) 0.7 x10E3/uL (1.00-4.8) L 07/03/24 19:45 [place] # (Auto) 0.6 x10E3/uL (0.0-0.8) 07/03/24 19:45 [...] 3 Documented By: Maricruz Godoy APRN 07/03/24 1801 Signed By: 07/04/24 1219 07/04/24 0643 [facility]02-20-2025 Evaluation note* Diagnosis Onset Date Resolution Status Admit Date Abnormal QT interval present on electroc ardiogram resolvedFebruary 2024 10:39pmAcute UTIresolvedFebruary 2024 10:39pm Altered mental statusresolved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[facility] 20[facility] 2:55pmChronic respiratory failure with hypoxiaresolved[facility] 2024 2:55pmPulmonary sarcoidosisresolved[facility] 2024 2:55pmAtrial fibrillationresolvedApril 2024 2:26pmChronic HFrEF (heart failure with reduced ejection fraction)resolved September 02, 2024 2:26pmNonischemic cardiomyopathyresolvedApril 2024 2:26pm Sarcoidosis of lungresolvedApril 2024 2:26pm [facility] Work Phone: 1(653) 578-610802-19-2025 [facility] [place] [address] [place] [address] CT Scan Report Signed Patient: Mary Mcadams MR#: [id number] : 1955 Acct:[id number] Age/Sex: 68 / M ADM Date: 5 Loc: Room: [address] [place] [address] Type: ADM IN Attending Dr: Altaf Jones [...] Varela II, MD 07/03/242252 Signed By: 07/03/242258 [facility] Work Phone: 1(165) 804-964002-19-2025 Radiology Diagnostic study [facility] [place] [address] [place] [address] CT Scan Report Signed Patient: Mary Mcadams MR#: [id number] : 1955 Acct:[id number] Age/Sex: 68 / M ADM Date: 5 [...] Juliocesar Varela M.D.07/03/2024 9:23 PM Dictation Location: [place] [address] Transcribed By: [facility] 07/03/242122 Dictated By: Juliocesar Varela II, MD 07/03/242108 Signed By: 07/03/242122 [facility] Work Phone: 1(658) 136-670102-19-2025 Radiology Diagnostic study [facility] [place] [address] [place] [address] CT Scan Report Signed Patient: Mary Mcadams MR#: [id number] : 1955 Acct:[id number] Age/Sex: 68 / M ADM Date: 5 [...] Juliocesar Varela M.D.07/03/2024 9:09 PM Dictation Location: [place] [address] Transcribed By: [facility] 07/03/242108 Dictated By: Juliocesar Varela II, MD 07/03/242103 Signed By: 07/03/242108 [facility] Work Phone: 1(514) 157-880901-10-2025 History of Present illness Narrative* Shannon Gonzalez [...] inhaler, Inhale 1 puff., Disp: , Rfl: qbbiqxptidy-sejofddiv-gbczamhu (TRELEGY-ELLIPTA) 200-62.5-25 mcg blister with device, Ryiwlmfwbpu-Tbmivdvda-Gtkrgsdi (Trelegy Ellipta) 200-62.5-25 mcg blister with device [...] exam, discussion and plan. documented in this encounterMcC[facility] Work Phone: 1(493) 294-116301-10-2025 Instructions* Patient Instructions* Harriet Gibson LPN - [...] time of your visit. documented in this encounterMcC[facility] Work Phone: 1(988) 808-582012-18-2024 Evaluation note* Diagnosis Onset Date Resolution Status Admit Date Altered mental status acuteDecember 2023 10:49amHypotensionacuteJanuary 2024 2:25pmRectal bleedingacuteJanuary 2024 2:25pmAtrial fibrillationresolvedJanuary 2024 2:25pmChronic HFrEF (heart failure with reduced ejection fraction)resolved June 03, 2024 2:25pmNonischemic cardiomyopathyresolvedMayuary 2024 2:25pmSarcoidosis of lungresolvedMayuary 2024 2:25pmAltered mental status acuteFebruary 2024 10:39pmCompression fracture of body of thoracic vertebraacuteFebruary 2024 10:39pmFallacuteFebruary 2024 10:39pm WeaknessacuteFebruary 2024 10:39pm [facility] Work Phone: 1([phone]) 862-547012-18-2024 Evaluation note* Diagnosis Onset Date Resolution Status [...] tract infection)acuteFebruary 2024 10:39pm WeaknessacuteFebruary 2024 10:39pm [facility] Work Phone: 1(556) 333-902912-18-2024 Evaluation note* Diagnosis Onset Date Resolution Status Admit Date Altered [facility] 20[facility] 10:49amHypotensionacuteJanuary 2024 2:25pmRectal bleedingacuteJanuary 2024 2:25pmAtrial [...] failure with hypoxiaresolved July 15, 2024 2:55pmPulmonary sarcoidosisresolvedIn[facility]20[facility] 2:55pm [facility] Work Phone: 1([phone] 482-162411-13-2024 History of Present illness Narrative* Shannon Gonzalez [...] to be placed on dofetilide with successful congregation of sinus rhythm during his last admission [...] inhaler, Inhale 1 puff., Disp: , Rfl: dkqpajsewpk-tsabrcczc-khwfrumw (TRELEGY-ELLIPTA) 200-62.5-25 mcg blister with device, Damvjparzmm-Hbnzyfveq-Bunndnft (Trelegy Ellipta) 200-62.5-25 mcg blister with device [...] exam, discussion and plan. documented in this encounterMcC[facility] Work Phone: 1(902) 751-283411-13-2024 Instructions* Patient Instructions* Kassidy Waggoner RN - [...] in 4 months Labs documented in this encounterMcC[facility] Work Phone: 1(986) 477-154111-06-2024 Progress note Author Altaf Jones [facility] March 20, 2024 1:34pmNote Date/TimeNov2023 1:34pm[place] [address] Hospitalist Progress Note Signed Patient: Mary Mcadams MR#: [id number] : 1955 Acct:[id number] Age/Sex: 68 / M Adm Date: 4 Loc: 4 Room: [address] [place] [address] Type: ADM IN Attending Dr: Altaf Jones [...] spray 03/14/24 09:00 03/20/24 08:58 Fluticasone Propionate [place] 120 [place]/16 Gm Bottle INTRANASAL 03/14/25 08:59 1 spray [...] <Electronically signed by Altaf Jones MD> 03/20/241333 [facility] Work Phone: 1([phone]) 690-831611-05-2024 Progress note [facility] March 19, 2024 4:51pmNote Date/TimeNov2023 4:[place] [address] Cardiology Progress Note Signed Patient: Mary Mcadams MR#: [id number] : 1955 Acct:[id number] Age/Sex: 68 / M Adm Date: 4 Loc: Room: [address] [place] [address] Type: ADM IN Attending Dr: Altaf Jones [...] heart diseases Documented By: Shannon Gonzalez MD, [facility] 4 1649 Signed By: <Electronically signed by MD POOL Gonzalez> 03/19/24 1651 [facility] Work Phone: 1(924) 122-710911-04-2024 Progress note Author Altaf Jones [facility] March 18, 2024 5:47pmNote Date/TimeMarch 18, 2024 5:47[place] [address] Hospitalist Progress Note Signed Patient: Mary Mcadams MR#: [id number] : 1955 Acct:[id number] Age/Sex: 68 / M Adm Date: 4 Loc: Room: [id number] Type: ADM IN Attending Dr: Altaf Jones [...] care and confirmed it with the re sident/student/FAMILY SUPPORT COORDINATOR. Patient is feeling well. No complaints with [...] spray 03/14/24 09:00 03/18/24 08:48 Fluticasone Propionate [place] 120 [place]/16 Gm Bottle INTRANASAL 03/14/25 08:59 1 spray [...] . Documented By: Altaf Jones MD 03/18/24 2042 Signed By: <Electronically signed by Altaf Jones MD> 03/18/24 1693 [facility] Work Phone: 1(856) 657-119311-04-2024 Progress note Author Shannon Gonzalez [facility] March 18, 2024 11:06amNote Date/TimeNov2023 11:[address] [address] Cardiology Progress Note Signed Patient: Mary Mcadams MR#: [id number] : 1955 Acct:[id number] Age/Sex: 68 / M Adm Date: 4 Loc: Room: [address] [place] [address] Type: ADM IN Attending Dr: Altaf Jones [...] <Electronically signed by MD POOL Gonzalez> 03/18/24 9277 [facility] Work Phone: 1(775) 245-930811-04-2024 Progress note Author Lula Muniz [facility] March 18, 2024 7:24amNote Date/TimeNov2023 12:[address]pm[address] [address] Vascular Surgery Progress Note Signed Patient: Mary Mcadams MR#: [id number] : 1955 Acct:[id number] Age/Sex: 68 / M Adm Date: 4 Loc: Room: [address] [place] [address] Type: ADM IN Attending Dr: Altaf Jones [...] signed by Baudilio Moura MD> 03/15/24 1406 [facility] Work Phone: 1(752) 339-384711-03-2024 Progress note Author Andres Herrera [facility] March 17, 2024 1:58pmNote Date/TimeNov2023 1:[place]pm[place] 2550570 Cardiology Progress Note Signed Patient: Mary Mcadams MR#: [id number] : 1955 Acct:[id number] Age/Sex: 68 / M Adm Date: 4 Loc: Room: [address] [place] [address] Type: ADM IN Attending Dr: Altaf Jones [...] signed by Andres Herrera MD> 03/17/24 1358 [facility] Work Phone: 1(874) 972-150811-03-2024 Progress note Author Altaf Jones [facility] March 17, 2024 10:48amNote Date/TimeMarch 17, 2024 10:[place] [address] Hospitalist Progress Note Signed Patient: Mary Mcadams MR#: [id number] : 1955 Acct:[id number] Age/Sex: 68 / M Adm Date: 4 Loc: Room: [address] [place] [address] Type: ADM IN Attending Dr: Altaf Jones [...] spray 03/14/24 09:00 03/17/24 08:53 Fluticasone Propionate [place] 120 [place]/16 Gm Bottle INTRANASAL 03/14/25 08:59 1 spray [...] <Electronically signed by Altaf Jones MD> 03/17/241047 [facility] Work Phone: 1(344) 523-826511-02-2024 Progress note Author Andres Herrera [facility] March 16, 2024 4:19pmNote Date/TimeNov2023 4:[place] [address] Cardiology Progress Note Signed Patient: Mary Mcadams MR#: [id number] : 1955 Acct:[id number] Age/Sex: 68 / M Adm Date: 4 Loc: Room: [address] [place] [address] Type: ADM IN Attending Dr: Altaf Jones [...] signed by Andres Herrera MD> 03/16/24 1619 [facility] Work Phone: 1(540) 831-648711-02-2024 Progress note Author Altaf Jones [facility] March 16, 2024 12:43pmNote Date/TimeMarch 16, 2024 12:42[place] [address] Hospitalist Progress Note Signed Patient: Mary Mcadams MR#: [id number] : 1955 Acct:[id number] Age/Sex: 68 / M Adm Date: 4 Loc: Room: [address] [place] [address] Type: ADM IN Attending Dr: Altaf Jones [...] spray 03/14/24 09:00 03/16/24 08:59 Fluticasone Propionate [place] 120 [place]/16 Gm Bottle INTRANASAL 03/14/25 08:59 1 spray [...] <Electronically signed by Altaf Jones MD> 03/16/24 5194 [facility] Work Phone: 1(333) 301-522211-01-2024 Consult note Author Shannon Gonzalez [facility] March 15, 2024 4:27pmNote Date/TimeMarch 15, 2024 4:[place] [address] Cardiology Consult Note Signed Patient: Mary Mcadams MR#: [id number] : 1955 Acct:[id number] Age/Sex: 68 / M Adm Date: 4 Loc: Room: [address] [place] [address] Type: ADM IN Attending Dr: Altaf Jones [...] Xareltofor 2 months. The patient presented to [facility] emergency department yesterday with altered mental status [...] his imaging studies in [facility] ER at [facility]. He was seen by vascular surgeryand they recommended medical therapy since the patient is asymptomatic. Antiplatelet therapy and statin therapy have been initiated. Neurology had seen the patient and they simply concurred with medical therapy. Review of Systems Review of Systems Review of systems: All other review of system essentially unremarkable or covered in HPI [facility] Medical History Carotid stenosis, right CTA: 90% [...] heart diseases Documented By: Shannon Gonzalez MD, [facility] HEALTH 4 [id number] Signed By: <Electronically signed by [facility] Shannon Gonzalez> 03/15/24 1625 [facility] Work Phone: 1(811) 514-487111-01-2024 Consult note Author Gutierrez Jo [facility] March 15, 2024 2:56pmNote Date/TimeMarch 15, 2024 2:10pm[place] [address] Physiatry (Rehab) Consult Note Signed Patient: Mary Mcadams MR#: [id number] : 1955 Acct:[id number] Age/Sex: 68 / M Adm Date: 4 Loc: Room: [address] [place] [address] Type: ADM IN Attending Dr: Altaf Jones [...] cardiomyopathy, and daily alcohol use presented to [facility] emergency room for altered mental status and chest pain due to acute encephalopathyon 03/13/2024 and was then transferred here to [facility]. Patient reported that he had [...] evaluated the patient. Recommendations are for a intermediate facility at this time. Patient stated that his baseline was notably better when compared to how he is currently. Patient stated that he was independent before his hospitalization and is interested in therapy whether it is inpatient or outpatient. Review of Systems Review of Systems All other systems reviewed & are negative unless noted below or in HPI [facility] Medical History Carotid stenosis, right CTA: 90% [...] cardiomyopathy, and daily alcohol use presented to [facility] emergency room for altered mental status and chest pain due to acute encephalopathyon 03/13/2024 and was then transferred here to [facility]. -A intermediate facility would be the most appropriate option for patient; patient is agreeable to this. -Patient currently below his normal baseline and has comorbidities that further accentuate problemswith mobility and performing ADLs. Patient was personally seen by me, Dr. Jo, on the day of encounter, reviewed the history and the relevant portions of the chart, including current orders, allied health and customer relations consultant notes, labs/imaging and performed gracia elements of exam and I formulated the plan of care and facilitated the medical decision making. I completed a substantive portion of this encounter, the medical decision makingportion of this note in its entirety, including Allied health note review, nursing note review, customer relations consultant note review,discussion with nursing and case management, and more than 50% of my time was spent on counseling and coordination of care, time spent 60 minutes Documented By: Gutierrez oJ MD 1341 Signed By: <Electronically signed by Gutierrez Jo MD> 03/15/24 1456 [facility] Work Phone: 1(741) 410-757611-01-2024 Progress note Author Eriberto Stover [facility] March 15, 2024 2:40pmNote Date/TimeNov2023 2:40pm[place] [address] Neurology Progress Note Signed Patient: Mary Mcadams MR#: [id number] : 1955 Acct:[id number] Age/Sex: 68 / M Adm Date: 4 Loc: Room: [address] [place] [address] Type: ADM IN Attending Dr: Altaf Jones [...] Therapy Recommendations: OT Recommendations OT Recommended Discharge Fdc Facility,Inpatient Rehab Unit Location OT Recommended Services at Physical Therapy,Occupational Therapy Discharge PT Recommendations PT Recommended Discharge Fdc Facility,Inpatient Rehab Unit Location PT Recommended Services [...] Affect normal. Patient is alert. Oriented to [facility] and March and 2023. Attention seems [...] time Documented By: Eriberto Stover DO 03/15/24 1430 Signed By: <Electronically signed by Eriberto Stover DO> 03/15/24 1440 [facility] Work Phone: 1(522) 565-895111-01-2024 Consult note Author Baudilio Moura [facility] March 15, 2024 2:05pmNote Date/TimeOct2023 8:44[place] [id number] Vascular Surgery Consult Note Signed Patient: Mary Mcadams MR#: [id number] : 1955 Acct:[id number] Age/Sex: 68 / M Adm Date: 4 Loc: Room: [address] [place] [address] Type: ADM IN Attending Dr: Altfa Jones MD Copies to: MD Adam Carballo DO Jackie R Ruttino, APRN Matthew T Langenberg, MD~ HPI Consult HPI Reason for consult: ICA stenosis History of present illness: Mr. Mcadams is a 68-year-old male with medical history to include A- fib, sarcoidosis, hypertension, systolic heart failure, cardiomyopathy, and alcohol abuse transferred here from the [facility] for altered mental status. Reportedly the patient [...] earlier in the day. During workup through [facility] a CTA of the head and [...] % (Auto) 76.4 Lymph % (Auto) 8.5 [place] % (Auto) 11.6 Eos % (Auto) 2.3 Baso % (Auto) 1.2 Nucleat RBC Rel Count 0.1 Neut # (Auto) 6.0 Lymph # (Auto) 0.7 L [place] # (Auto) 0.9 H Eos # (Auto) 0.2 Baso # (Auto) 0.1 PHA Creatinine Clear 88.87 Sodium 134 L Potassium 4.0 Chloride 101 Carbon Dioxide 26.0 Anion Gap 11.0 BUN 12 Creatinine 0.71 Est GFR (CKD-EPI) > 60.0 Glucose 96 Calcium 8.4 L Magnesium 1.8 L Urine Color Yellow Urine Appearance Clear Urine pH 5.5 Ur Specific [place] 1.046 H Urine Protein 70 H Urine [...] of the head and neck obtained in [place]. I did order ultrasound for additional modality [...] <Electronically signed by Baudilio Moura MD> 03/15/24 1408 [facility] Work Phone: 1([phone]) 670-818211-01-2024 Progress note Author Altaf Jones [facility] March 15, 2024 12:33pmNote Date/TimeMarch 15, 2024 12:32p[place] [address] Hospitalist Progress Note Signed Patient: Mary Mcadams MR#: [id number] : 1955 Acct:[id number] Age/Sex: 68 / M Adm Date: 4 Loc: Room: [address] [place] [address] Type: ADM IN Attending Dr: Altaf Jones MD Copies to: ~ Date of Service: 03/15/2024 Subjective Subjective Narrative: Patient is awake alert oriented x 3. Respiratory distress today. Lungs are clear today. Heart is regular, no gallop or JVD Abdomen soft benign Neurological as noted. No evidence of focal neurological deficit Assessment and plan 1. Acute decompensated CHF. Responded well to diuretic therapy. Kgxtf-pz-uvrr ultrasound shows improvement in LVEF. Canceled limited [...] spray 03/14/24 09:00 03/15/24 09:41 Fluticasone Propionate [place] 120 [place]/16 Gm Bottle INTRANASAL 03/14/25 08:59 Not Given DAILY ALEX Folic Acid 1 mg 03/14/24 09:00 03/15/24 09:33 Folic Acid 1 Mg Tablet PO 03/14/25 08:59 1 mg DAILY ALEX Administration Furosemide 40 mg 03/15/24 16:00 Furosemide 40 Mg/4 Ml Vial IV-PUSH 03/15/25 15:59 BID@0800,1600 [facility] Hydromorphone HCl 0.5 mg 03/14/24 02:27 Hydromorphone [...] signed by Altaf Jones MD> 03/15/24 1233 [facility] Work Phone: 1([phone] 500-618010-31-2024 Consult note Author Eriberto Stover [facility] March 14, 2024 2:34pmNote Date/TimeOct2023 1:09pmJason [place] [id number] Neurology Consult Note Signed Patient: Mary Mcadams MR#: [id number] : 1955 Acct:[id number] Age/Sex: 68 / M Adm Date: 4 Loc: Room: [address] [place] [address] Type: ADM IN Attending Dr: Altaf Jones MD Copies to: DO Altaf Morton MD Benjamin Ball, DO~ HPI Consult Date: 03/14/24 Editor Publications: Eriberto Stover DO [facility] Medical History Carotid stenosis, right CTA: 90% [...] Grupo Chen M.D.03/13/2024 11:57 PM Dictation Location: [place] [address] Therapy Recommendations Therapy Recommendations: OT Recommendations OT Recommended Discharge Fdc Facility,Inpatient Rehab Unit Location OT Recommended Services at Physical Therapy,Occupational Therapy Discharge PT Recommendations PT Recommended Discharge Fdc Facility,Inpatient Rehab Unit Location PT Recommended Services [...] Affect normal. Patient is alert. Oriented to [facility] and February. Attention seems only minimally [...] signed by Eriberto Stover DO> 03/14/24 1437 [facility] Work Phone: 1([phone]) 166-112010-31-2024 Progress note Author Altaf Jones [facility] March 14, 2024 1:29pmNote Date/TimeOctober 2023 1:27pm[place] [address] Hospitalist Progress Note Signed Patient: Mary Mcadams MR#: [id number] : 1955 Acct:[id number] Age/Sex: 68 / M Adm Date: 4 Loc: Room: [address] [place] [address] Type: ADM IN Attending Dr: Altaf Jones MD Copies to: ~ Date of Service: 03/14/2024 Subjective Subjective Narrative: Patient is awake alert oriented x 3. He appears in mild respiratory distress. On examination expiratory wheezes audible bilaterally. JVD present bilaterally. Tzfvb-rj-hylt ultrasound is notable for decreased ejection fraction [...] spray 03/14/24 09:00 03/14/24 10:36 Fluticasone Propionate [place] 120 [place]/16 Gm Bottle INTRANASAL 03/14/25 08:59 1 spray [...] signed by Altaf Jones MD> 03/14/24 1329 [facility] Work Phone: 1([phone]) 199-571510-31-2024 History and physical note Author Gabriela oNbles [facility] March 14, 2024 4:28amNote Date/TimeOctober 2023 9:16pm[place] [address] Hospitalist H&P Signed Patient: Mary Mcadams MR#: [id number] : 1955 Acct:[id number] Age/Sex: 68 / M Adm Date: 4 Loc: Room: [address] [place] [address] Type: ADM IN Attending Dr: Gabriela Nobles MD Copies to: DO Gabriela Waller MD Paula G Smith, ELEMENTARY PRINCIPAL~ HPI DATE OF EXAMINATION: 03/13/24 CHIEF COMPLAINT: altered mental status HISTORY OF PRESENT ILLNESS: Mr. Mcadams is a 68-year-old male with a PMH of A-fib, pulmonary sarcoidosis, HTN, systolic heart failure?last EF 45 to 50%, nonischemic cardiomyopathy, dailyalcohol use?last drink Monday the presented to [facility] emergency room for altered mental status. Patient [...] awake this morning while she was there. [facility] chart review?EMS was dispatched to the patient's house for chest pains, upon arrival and found patient sitting on couch groaning loudly. EMS reports son was present and reported making the patient's stop drinking last due to ongoing cardiac issues. Note states patient was oriented but could not remain focused, EKG shows A-fib. Upon arrival to [facility] emergency room patient was alert and oriented [...] [place] 20 mg Tylenol. Transferred here to [facility] under the care of the hospitalist team. Review of Systems Review of Systems Review of systems: A 10 point review of systems was obtained, negative unless noted in the HPI or below. [facility] Medical History (Updated 03/13/24 @ 23:04 by [...] signed by Gabriela Nobles MD> 03/14/24 0428 [facility] Work Phone: 1(707) 590-128310-25-2024 Evaluation note* Diagnosis Onset Date Resolution Status [...] cardiomyopathyresolvedJanuary 2024 2:25pmSarcoidosis of lungresolvedJanuary 2024 2:25pm [facility] Work Phone: 1(176) 334-916910-18-2024 Discharge summary Author Altaf Jones [facility] March 01, 2024 12:16pmNote Date/TimeOctober 2023 12:12pm[place] [address] Discharge Summary Signed Patient: Mary Mcadams MR#: [id number] : 1955 Acct:[id number] Age/Sex: 68 / M Adm Date: 4 Loc: Room: [address] [place] [address]: Altaf Jones MD Copies to: MD Adam Carballo,DO~ Providers Date of Discharge: 03/01/24 Discharging Provider: Altaf Jones Primary Care Provider: Adam Del Valle Consults: 02/29/24 00:15 Consult to Cardiology Routine Comment: Consulting Provider: [facility] Heart, [facility] Reason For Exam: chf Has Provider [...] Plan Discharge Plan Patient Disposition: Home Health [facility] Activity: No Activity Restriction Diet: Low-Sodium [...] Instructions: 2 liters at HS and napping [facility] Ellipta 200-62.5-25 mcg blister with [...] signed by Altaf Jones MD> 03/01/24 1216 [facility] Work Phone: 1(142) 577-354310-18-2024 Progress note Author Shannon Gonzalez [facility] March 01, 2024 9:53amNote Date/TimeOct2023 9:53am[place] [address] Cardiology Progress Note Signed Patient: Mary Mcadams MR#: [id number] : 1955 Acct:[id number] Age/Sex: 68 / M Adm Date: 4 Loc: Room: [address] [place] [address] Type: ADM IN Attending Dr: Altaf Jones [...] Localized edema Documented By: Shannon Gonzalez MD, [facility] 4 0949 Signed By: <Electronically signed by MD POOL Gonzalez> 03/01/24 0953 [facility] Work Phone: 1(837) 735-473410-18-2024 [facility] Consult note Author Shannon Gonzalez [facility] February 29, 2024 3:45pmNote Date/TimeOct2023 3:42pm[place] [address] Cardiology Consult Note Signed Patient: Mary Mcadams MR#: [id number] : 1955 Acct:[id number] Age/Sex: 68 / M Adm Date: 4 Loc: Room: [address] [place] [address] Type: ADM IN Attending Dr: Altaf Jones [...] above in HPI was unremarkable [facility] Medical History (Updated 02/29/24 @ 15:44 by [...] Lymph # (Auto) 0.6 L (1.00-4.8) x10E3/uL [place] # (Auto) 0.6 (0.0-0.8) x10E3/uL Eos # [...] Localized edema Documented By: Shannon Gonzalez MD, [facility] 4 153 Signed By: <Electronically signed by [facility] Shannon Gonzalez> 02/29/24 1545 [facility] Work Phone: 1(426) 487-175910-17-2024 Progress note Author Altaf Jones [facility] February 29, 2024 12:03pmNote Date/TimeOct2023 11:53[place] [address] Hospitalist Progress Note Signed Patient: Mary Mcadams MR#: [id number] : 1955 Acct:[id number] Age/Sex: 68 / M Adm Date: 4 Loc: Room: [address] [place] [address] Type: ADM IN Attending Dr: Altaf Jones [...] care and confirmed it with the re sident/student/FAMILY SUPPORT COORDINATOR. Patient, Mary Mcadams, is a 68 year [...] spray 02/29/24 09:00 02/29/24 08:49 Fluticasone Propionate [place] 120 [place]/16 Gm Bottle INTRANASAL 02/28/25 08:59 1 spray [...] <Electronically signed by Altaf Jones MD> 02/29/24 1202 [facility] Work Phone: 1(220) 739-784110-17-2024 History and physical note Author Silvano Reed [facility] February 29, 2024 1:28amNote Date/TimeOct2023 12:24[place], [place] [address] Hospitalist H&P Signed Patient: Mary Mcadams MR#: [id number] : 1955 Acct:[id number] Age/Sex: 68 / M Adm Date: 4 Loc: Room: [address] [place] [address] Type: ADM IN Attending Dr: Silvano Reed DO Copies to: Adam Del Valle,DO Silvano Reed, DO Maricruz Godoy, ELEMENTARY PRINCIPAL~ HPI DATE OF EXAMINATION: 02/28/24 CHIEF COMPLAINT: [...] admitted as inpatient to the [facility] telemetry floor. Review of Systems Review of Systems Review of systems: A 10 point review of systems was obtained, negative unless noted in the HPI or below. [facility] Medical History Alcohol dependence Afib Rectal bleeding [...] % (Auto) 9.9 % (.) 02/28/24 22:00 [place] % (Auto) 10.0 % (.) 02/28/24 22:00 Eos % (Auto) 0.9 % (.) 02/28/24 22:00 Baso % (Auto) 0.4 % (.) 02/28/24 22:00 Nucleat RBC Rel Count 0.1 /100 WBC (0-0.5) 02/28/24 22:00 Neut # (Auto) 4.6 x10E3/uL (1.8-7.7) 02/28/24 22:00 Lymph # (Auto) 0.6 x10E3/uL (1.00-4.8) L 02/28/24 22:00 [place] # (Auto) 0.6 x10E3/uL (0.0-0.8) 02/28/24 22:00 [...] signed by Silvano Reed DO> 02/29/24 0128 [facility] Work Phone: 1(484) 507-188510-08-2024 History of Present illness Narrative* Olivia Toro LPN - 02/20/2024 2:00 PM EDT Patient here for an EKG visit ordered by Dr. Gonzalez due to new onset afib, diagnosed at [facility] on 02/04/24. Dr. Burroughs in suite to review EKG prior to discharge. Medication list Updated verbally. Patient has complaints of SOB and dizziness while in office. To Dr. Gonzalez to read Vitals: 02/20/24 1422 BP: 140/80 BP Location: Left arm Patient Position: Sitting Pulse: 102 Weight: 76.7 kg (169 lb) Height: 1.829 m (6') documented in this [facility] Work Phone: 1(662) 100-551509-22-2024 Discharge summary Author Silvano Reed [facility] February 04, 2024 4:34pmNote Date/TimeSeptember 2023 2:14pm[place] [address] Discharge Summary Signed Patient: Mary Mcadams MR#: [id number] : 1955 Acct:[id number] Age/Sex: 68 / M Adm Date: 4 Loc: Room: [address] [place] [address]: Silvano Reed DO Copies to: DO Shannon Waller MD, [facility] Silvano Reed DO~ Providers Date of Discharge: 02/04/24 Discharging Provider: Silvano Reed Primary Care Provider: Adam Del Valle Consults: 02/02/24 10:35 Consult to Cardiology Routine Comment: Consulting Provider: [facility] Heart, [facility] Reason For Exam: New A-Fib with [...] and months. He even saw his primary hazardous material specialist, Dr. 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 He [...] long time was not changed by the homemaking rehabilitation consultant during hospital stay. An echocardiogram was [...] Instructions: 2 liters at HS and napping [facility] Ellipta 200-62.5-25 mcg blister with [...] % (Auto) 72.1, Lymph % (Auto) 13.6, [place] % (Auto) 12.9, Eos % (Auto) 1.2, Baso % (Auto) 0.2, Nucleat RBC Rel Count 0.1, Neut # (Auto) 5.6, Lymph # (Auto) 1.1, [place] # (Auto) 1.0 H, Eos # (Auto) 0.1, Baso # (Auto) 0.0, PHA CreatinineClear 86.96, Sodium 133 L, Potassium 4.4, Chloride 100, Carbon Dioxide 29.9, Anion Gap 7.5, BUN 22,Creatinine 0.88, Est GFR (CKD-EPI) > 60.0, Glucose 83, Calcium 8.7 Documented By: Silvano Reed DO 1414 Signed By: <Electronically signed by Silvano Reed DO> 02/04/24 1634 [facility] Work Phone: 1(520) 650-729809-22-2024 Progress note Author Shannon Gonzalez [facility] February 04, 2024 1:00pmNote Date/TimeSept2023 1:[address] [address] Cardiology Progress Note Signed Patient: Mary Mcadams MR#: [id number] : 1955 Acct:[id number] Age/Sex: 68 / M Adm Date: 4 Loc: 3T Room: [address] [place] [address] Type: ADM IN Attending Dr: Silvano Reed [...] % (Auto) 72.1 Lymph % (Auto) 13.6 [place] % (Auto) 12.9 Eos % (Auto) 1.2 Baso % (Auto) 0.2 Nucleat RBC Rel Count 0.1 Neut # (Auto) 5.6 Lymph # (Auto) 1.1 [place] # (Auto) 1.0 H Eos # (Auto) [...] Plan: Continue Xarelto indefinitely Code(s): Z79.01 - 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 Documented By: Shannon Gonzalez MD, [facility] 4 1256 Signed By: <Electronically signed by MD POOL Gonzalez> 02/04/24 1300 [facility] Work Phone: 1(973) 516-565009-21-2024 Progress note Author Silvano Reed [facility] February 03, 2024 2:11pmNote Date/TimeSept2023 12:35pm[place] [address] Hospitalist Progress Note Signed Patient: Mary Mcadams MR#: [id number] : 1955 Acct:[id number] Age/Sex: 68 / M Adm Date: 4 Loc: Room: [address] [place] [address] Type: ADM IN Attending Dr: Silvano Reed [...] spray 02/03/24 09:00 02/03/24 08:18 Fluticasone Propionate [place] 120 [place]/16 Gm Bottle INTRANASAL 02/02/25 08:59 1 spray [...] Administration Non-Formulary Medication 1 inh 02/03/24 09:00 Kqkepdjykle-Ikpfqgsaz-Qrukbmpl [Trelegy Ellipta] INHALATION 02/02/25 08:59 DAILY ALEX [...] atrial fibrillation - Accepted inpatient transfer from [facility] - Currently hemodynamically stable - BNP 239. [...] dyspnea on exertion. BNP level at the [facility] was extremely high at 2166. - Cardiology consultation. 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 group home conditions: Chronic hypoxic respiratory failure - continue 2 liters by VT as at home. Take medications as directed [...] signed by DO MAIA Billy> 02/03/24 1235 [facility] Work Phone: 1(331) 341-203809-21-2024 Consult note Author Shannon Gonzalez [facility] February 03, 2024 1:43pmNote Date/TimeSept2023 1:38pm[place] [address] Cardiology Consult Note Signed Patient: Mary Mcadams MR#: [id number] : 1955 Acct:[id number] Age/Sex: 68 / M Adm Date: 4 Loc: Room: [address] [place] [address] Type: ADM IN Attending Dr: Silvano Reed DO Copies to: DO Shannon Waller MD, [facility] Silvano Reed DO~ Cardiology HPI History of [...] review of system essentially unremarkable [facility] Medical History Cardiac sarcoidosis Bullous emphysema History [...] Lymph # (Auto) 0.5 L (1.00-4.8) x10E3/uL [place] # (Auto) 0.9 H (0.0-0.8) x10E3/uL Eos [...] 10 MG/HR 10 mls/hr IV .Q10H ALEX Rx#:[id number] Oral 650 / 650 550 / 550 [...] atrial fibrillation Documented By: Shannon Gonzalez MD, [facility] 4 1334 Signed By: <Electronically signed by MD POOL Gonzalez> 02/03/24 2703 [facility] Work Phone: 1(448) 273-159409-20-2024 History and physical note Author Silvano Reed [facility] February 02, 2024 3:17pmNote Date/TimeSept2023 12:05pm[place] [address] Hospitalist H&P Signed Patient: Mary Mcadams MR#: [id number] : 1955 Acct:[id number] Age/Sex: 68 / M Adm Date: 4 Loc: 3T Room: [address] [place] [address] Type: ADM IN Attending Dr: Silvano Reed DO Copies to: Rubin Billy DO, RES Adam Del Valle,DO Silvano Reed DO~ HPI DATE OF EXAMINATION: 02/02/24 CHIEF COMPLAINT: New onset afib HISTORY OF PRESENT ILLNESS: Patient is a 68-year-old male with past medical history of nonischemic cardiomyopathy, sarcoidosis,BPH, hypertension, acoustic neuroma who presented to [facility] on 01/31 with complaint of new onset [...] was diagnosed with Afib w/ RVR at [facility] and transferred to [facility] as an inpatient on 02/01. His medications seem to help with his pulmonary issues, but he thinks his shortness of breath has been worsening over the past 2 months. He last saw his hazardous material specialist, Dr. Alvares in October 2023. Per his [...] additional complaints, except as documented [facility] Medical History Cardiac sarcoidosis Bullous emphysema History [...] atrial fibrillation - Accepted inpatient transfer from [facility] - Currently hemodynamically stable - BNP 2166 - Stat EKG shows afib - Cardizem drip -titrate for heart rate between 70 and 90 bpm. - Trans thoracic echocardiogram. - Cardiology consult placed, will follow recommendations Recent symptomatology of progressive dyspnea, and dyspnea on exertion. BNP level at the [facility] was extremely high at 2166. -Cardiology consultation. -Awaiting echocardiogram. joint terminal 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 conditions: Chronic hypoxic respiratory failure - continue 2 liters by VT as at home. Take medications as directed [...] signed by DO MAIA Billy> 02/02/24 1428 [facility] Work Phone: 1(391) 758-923309-20-2024 Evaluation note* Diagnosis Onset Date Resolution Status [...] cardiomyopathychronicNovember 2023 1:58pmSarcoidosis of lungresolvedNovember 2023 1:58pm [facility] Work Phone: 1(577) 485-202905-31-2024 History of Present illness Narrative* Steven Alvares [...] exam, discussion and plan. documented in this [facility] Work Phone: 1(350) [phone] Instructions* Patient Instructions* Beverley Morse LPN - [...] time of your visit. documented in this [facility] Work Phone: 1(196) 289-924304-01-2024 Hospital Discharge instructions Patient Education 08/14/2023 16:09:27 [...] urethra. Follow these instructions at home: Take uexa-uyb-adegajb and prescription medicines only as told by [...] provider. Document Revised: 11/17/2021 Document Reviewed: 11/17/2021 [employer] Patient Education 2022 [employer] Follow Up Care 11/28/2022 14:06:23 With:EMERSON SALMON, Clinton Hernandez, URL Address: [facility] [address] , [place] [address]- [phone] When: Unknown [facility] 12-21-2023 Evaluation note* Encounter Date Diagnosis Assessment Notes Treatment Notes Treatment Clinical Notes Apr, Sarcoidosis of lung (ICD-10 - D8 6.0) [employer] Other 10-18-2023 Evaluation note* Encounter Date Diagnosis [...] qd No ER trips for AE f/u Back Closer Feb,enign prostatic hyperplasia with lower urinary tract [...] They may safely use Tylenol as needed. [employer] Other 07-23-2023 Evaluation note* Encounter Date Diagnosis Assessment Notes Treatment Notes Treatment Clinical Notes Nov, Acoustic neuroma (ICD-10 - D33.3 ) MRI: [id number] left IAC - 12/2021 (no change from 2016) [facility] Other 07-17-2023 Hospital Discharge instructions Patient Education [...] and water are not available, use hand division sergeant. 2.Clean your penis with soap and water. [...] reusable catheter in a small bathroom. Take fuyc-zld-znwwslr and prescription medicines only as told by [...] provider. Document Revised: 03/07/2022 Document Reviewed: 03/07/2022 babbel Patient Education 2022 PublishThis. 11/28/2022 14:00:56 Benign Prostatic Hyperplasia Benign Prostatic [...] urethra. Follow these instructions at home: Take extl-spt-lyirkae and prescription medicines only as told by [...] provider. Document Revised: 11/17/2021 Document Reviewed: 11/17/2021 babbel Patient Education 2022 PublishThis. Follow Up Care 02/14/2022 12:45:59 With:EMERSON SALMON, Clinton Hernandez, URL Address: [facility] [address] , [place] [address]- [phone] When: Unknown Comments:6 mos w/ PSA [facility] 05-16-2023 Evaluation note* Encounter Date Diagnosis Assessment Notes Treatment Notes Treatment Clinical Notes September, Chronic obstructive pulmonary disease, unspecified (ICD-10 - J44.9) [employer] Other 04-20-2023 Evaluation note* Encounter Date Diagnosis [...] with reduced ejection fraction) (ICD-10 - I50.22) [facility] Other 10-03-2022 Hospital Discharge instructions Patient Education 02/14/2022 12:20:02 Acute Urinary Retention, Male, Tabw-sx-Aatz Acute Urinary Retention, Male Acute urinary retention means that you cannot pee (urinate) at all, or that you pee too little and your bladder is not emptied completely. If it is not treated, it can lead to kidney damage or other serious problems. Follow these instructions at home: Take ggym-rhp-aixjzyt and prescription medicines only as told by [...] 10/17/2008 Document Revised: 07/18/2019 Document Reviewed: 06/02/2017 babbel Patient Education 2019 PublishThis. Follow Up Care 08/09/2021 13:00:29 With:EMERSON SALMON, Clinton Hernandez, URL Address: [facility] [address] [place] [address] [phone] When:08/15/2022 [facility] 06-14-2022 History and physical note Author Gregg Hilliard [facility] October 26, 2021 10:26amNote Date/TimeJun2021 10:[address] [address] Gastroenterology H&P Signed Patient: Mary Mcadams MR#: [id number] : 1955 Acct:[id number] Age/Sex: 66 / M Adm Date: 2 Loc: Room: Type: [facility] Attending Dr: Gregg Hilliard DO Copies to: [...] by Gregg Hilliard Jr, DO> 10/26/21 1026 [facility] Work Phone: [phone] [facility]* Encounter Date Diagnosis Assessment Notes Treatment Notes Treatment Clinical Notes September, History of colon polyps (ICD-10 - Z86.010) September,nemia, unspecified type (ICD-10 - D64.9) [employer] Other 05-24-2022 Evaluation note* Encounter Date Diagnosis Assessment Notes Treatment Notes Treatment Clinical Notes September, Chronic obstructive pulmonary disease, unspecified (ICD-10 - J44.9) [employer] Other 04-06-2022 Evaluation note* Encounter Date Diagnosis Assessment Notes Treatment Notes Treatment Clinical Notes Aug, 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 2.Prepare the supplies that you will use [...] reusable catheter in a small bathroom. Take ovpp-asj-fcoyyna and prescription medicines only as told by [...] 06/03/2011 Document Revised: 08/21/2019 Document Reviewed: 12/20/2018 babbel Patient Education 2020 PublishThis. 08/09/2021 12:46:36 Benign Prostatic Hyperplasia Benign Prostatic [...] urethra. Follow these instructions at home: Take xvxf-ich-fxvwthj and prescription medicines only as told by [...] 05/01/2006 Document Revised: 03/26/2019 Document Reviewed: 06/05/2017 babbel Patient Education appEatIT. Follow Up Care 04/05/2021 12:45:32 With:Clinton NORMAN MD, URL Address: [facility] [address], [place] [address]- [phone] When:02/09/2022 Comments:6 months w PSA [facility] evaluation + Plan note Future Appointments Appointment Date:02/14/2022 11:45:00 AM Scheduled Provider:Clinton NORMAN MD Location:[facility] Appointment Type:URO Office Visit Diagnostic Tests Pending * PSA Total 08/09/21 [facility] evaluation + Plan note Future Appointments Appointment Date:09/05/2022 02:15:00 PM Scheduled Provider:Clinton NORMAN MD Location:[facility] Appointment Type:URO Office Visit [facility] evaluation + Plan note Future Appointments Appointment Date:06/05/2023 12:45:00 PM Scheduled Provider:Clinton NORMAN MD Location:[facility] Appointment Type:URO Office Visit Diagnostic Tests Pending * PSA Total 11/28/22 [facility] evaluation + Plan note Future Appointments Appointment Date:02/19/2024 01:15:00 PM Scheduled Provider:Clinton NORMAN [facility] Type:URO Office Visit Diagnostic Tests Pending * PSA Total 08/14/23 [facility] evaluation + Plan note Future Appointments Appointment Date:02/03/2025 02:30:00 PM Scheduled Provider: Location:[facility] Appointment Type:URO Nurse Visit Appointment Date:02/10/2025 02:15:00 PM Scheduled Provider:Clinton NORMAN MD [facility] App[facility] Type:URO Office Visit Future Scheduled Tests Laboratory* PSA Total 02/05/25 [facility] Evaluation noteNo assessment information available [facility] Work Phone: Evaluation note* Diagnosis Onset Date Resolution Status Anemia acutePersonal history of colonic polypsacute [facility] Work Phone: Evaluation noteNo [facility] [employer] Other Evaluation note* Diagnosis Non-ischemic cardiomyopathy (Multi)- Primary Other primary cardiomyopathies LV (left ventricular) mural thrombus Acute myocardial infarction, unspecified site, episode of care unspecified Diastolic dysfunction Unspecified heart disease Pulmonary sarcoidosis (Multi) Sarcoidosis Imbalance Abnormality of gait BMI 23.0-23.9, adult documented in this encounter [facility] Work Phone: Evaluation note* Diagnosis Onset Date Resolution Status Acoustic neuroma acuteAnticoagulatedacuteAtrial fibrillation with RVRacuteBenign prostatic hyperplasia with lower urinary tract symptomsacuteCardiac sarcoidosisacute Chronic HFrEF (heart failure with reduced ejection fraction)acuteHypertension acuteNew onset atrial fibrillationacuteNonsustained paroxysmal ventricular tachycardiaacutePulmonary sarcoidosisacuteNonischemic cardiomyopathychronic [facility] Work Phone: Evaluation note* Diagnosis Onset Date Resolution Status Acoustic neuroma acuteAnticoagulatedacuteBenign prostatic hyperplasia with lower urinary tract symptomsacuteCardiac sarcoidosisacuteChronic HFrEF (heart failure with reduced ejection fraction)acuteHypertensionacuteNew onset atrial fibrillationacute Pulmonary sarcoidosisacuteNonischemic cardiomyopathychronicAtrial fibrillation with RVRresolvedNonsustained paroxysmal ventricular tachycardiaresolved AnticoagulatedacuteAtrial fibrillationacuteChronic HFrEF (heart failure with reduced ejection fraction)acuteHypertensionacuteSarcoidosis of lungresolved Nonischemic cardiomyopathychronic [facility] Work Phone: Evaluation note* Diagnosis Onset Date Resolution Status Acoustic neuroma acuteAnticoagulatedacuteBenign prostatic hyperplasia with lower urinary tract symptomsacuteCardiac sarcoidosisacuteChronic HFrEF (heart failure with reduced ejection fraction)acuteHypertensionacuteNew onset atrial fibrillationacute Pulmonary sarcoidosisacuteNonischemic cardiomyopathychronicAtrial fibrillation with RVRresolvedNonsustained paroxysmal ventricular tachycardiaresolvedAtrial fibrillationacuteChronic HFrEF (heart failure with reduced ejection fraction) acuteHypertensionacuteRectal bleedingacuteNonischemic cardiomyopathychronic Sarcoidosis of lungresolvedAcute on chronic clinical systolic heart failureacute Shortness of breathacute [facility] Work Phone: Evaluation note* Diagnosis [...] edemaacutePulmonary sarcoidosisacuteShortness of breathacuteChronic respiratory failure with hypoxiachronicHyponatremiaascension river district hospitalic [facility] Work Phone: Evaluation note* Diagnosis [...] failure with reduced ejection fraction)acuteHypertensionacuteNonischemic cardiomyopathychronicSarcoidosis of lungresMart[facility] Work Phone: Evaluation note* Diagnosis Onset [...] systolic dysfunctionacutePersistent atrial fibrillationacutePulmonary sarcoidosisacuteNonischemic cardiomyopathy chronic [facility] Work Phone: Evaluation note* Diagnosis Persistent atrial fibrillation (Multi)- Primary Atrial fibrillation Non-ischemic cardiomyopathy (Multi) Other primary cardiomyopathies Chronic obstructive pulmonary disease, unspecified COPD type (Multi) BMI 20.0-20.9, adult High risk medication use Pulmonary sarcoidosis (Multi) Sarcoidosis Carotid artery stenosis without cerebral infarction, right Dyslipidemia Other and unspecified hyperlipidemia documented in this encounter [facility] Work Phone: Evaluation note* Diagnosis Hypotension [...] of cerebral infarction documented in this encounter [facility] Work Phone: Evaluation note* Diagnosis Fatigue, unspecified type Non-ischemic cardiomyopathy (Multi) Other primary cardiomyopathies Diastolic dysfunction Unspecified heart disease LV (left ventricular) mural thrombus Acute myocardial infarction, unspecified site, episode of care unspecified 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 (Multi) Atrial fibrillation documented in this encounter [facility] Work Phone: Evaluation note* Diagnosis Chronic respiratory failure with hypoxia ([facility])- Primary Closed wedge compression fracture of T7 vertebra with routine healing, subsequent encounter Closed wedge compression fracture of T8 vertebra with routine healing, subsequent encounter Sarcoid myocarditis Hypotension, unspecified hypotension type Benign prostatic hyperplasia with lower urinary tract symptoms, symptom details unspecified Hypo-osmolality and hyponatremia Hypokalemia Hypopotassemia Sarcoidosis of lung ([facility]) Sarcoidosis Chronic systolic congestive heart failure ([facility]) Muscle weakness (generalized) Alcohol dependence, 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[facility]) Other and unspecified alcohol dependence, in remission [facility] encounter [facility] Diagnosis Chronic respiratory failure with hypoxia ([facility])- Primary Closed wedge compression fracture of T8 vertebra with routine healing, subsequent encounter Closed wedge compression fracture of T7 vertebra with routine healing, subsequent encounter Sarcoidosis of lung ([facility]) Sarcoidosis Chronic systolic congestive heart failure ([facility]) Sarcoid myocarditis Gross hematuria Hypo-osmolality and hyponatremia Hypokalemia Hypopotassemia Alcohol dependence, 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[facility]) Other and unspecified alcohol dependence, in remission Benign prostatic hyperplasia with lower urinary tract symptoms, symptom details unspecified Other spondylosis, lumbar region Muscle weakness (generalized) Encephalopathy, unspecified type Occlusion and stenosis of right carotid artery Gastroesophageal reflux disease without esophagitis Esophageal reflux Chronic atrial fibrillation (CMS-HCC) Atrial fibrillation [facility]* Diagnosis Chronic systolic congestive heart failure (CMS-HCC)- Primary Chronic atrial fibrillation (CMS-HCC) Atrial fibrillation Sarcoidosis of lung ([facility]) Sarcoidosis Hypo-osmolality and hyponatremia Benign prostatic hyperplasia with lower urinary tract symptoms, symptom details unspecified documented [facility] encounter [facility]* Diagnosis Atrial fibrillation, unspecified type (Multi) documented in this encounter [facility] Work Phone: Evaluation note* Diagnosis Non-ischemic cardiomyopathy (Multi) Other primary cardiomyopathies Cardiomyopathy, unspecified documented in this encounter [facility] Work Phone: Evaluation note* Diagnosis Other fatigue- Primary Non-ischemic cardiomyopathy (Multi) Other primary cardiomyopathies 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 (Multi) Atrial fibrillation High risk medication use Pulmonary sarcoidosis (Multi) Sarcoidosis BMI < 18.5 Current smoker documented in this encounter [facility] Work Phone: Evaluation note* Diagnosis High risk medication use- Primary 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 (Multi) Atrial fibrillation 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 Long-term (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 Takotsubo syndrome BMI < 18.5 Cardiac sarcoidosis Chewing tobacco use Other cardiomyopathy LV dysfunction Left heart failure documented in this encounter [facility] Work Phone: Evaluation note* Diagnosis High risk medication use- Primary 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 (Multi) Atrial fibrillation 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 Long-term (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 Takotsubo syndrome BMI < 18.5 Cardiac sarcoidosis Chewing tobacco use Other cardiomyopathy LV dysfunction Left heart failure High risk medication use documented in this encounter [facility] Work Phone: Evaluation note* Diagnosis High risk medication use- Primary 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 (Multi) Atrial fibrillation group home (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 Long-term (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 Takotsubo syndrome BMI < 18.5 Cardiac sarcoidosis Chewing tobacco use Other cardiomyopathy LV dysfunction Left heart failure Cardiac sarcoidosis documented in this encounter [facility] Work Phone: History and physical note Author Silvano Reed [facility] Date/TimeJune 2024 3:30[place] [id number] Hospitalist H&P Signed Patient: Mary Mcadams MR#: [id number] : 1955 Acct:[id number] Age/Sex: 69 / M Adm Date: 5 Loc: ER Room: Type: [facility] ER Attending Dr: Copies to: Adam Del [...] mentioned elsewhere in the documentation. [facility] Medical History (Updated 11/11/24 @ 03:27 by [...] Lymph % (Auto) 18.7 % (.) 11/10/24: [place] % (Auto) 9.3 % (.) 11/10/24: Eos % (Auto) 5.0 % (.) 11/10/24: Baso % (Auto) 0.5 % (.) 11/10/24: Nucleat RBC Rel Count 0.1 /100 WBC (0-0.5) 11/10/24: Neut # (Auto) 4.3 x10E3/uL (1.8-7.7) 11/10/24: Lymph # (Auto) 1.2 x10E3/uL (1.00-4.8) 11/10/24: [place] # (Auto) 0.6 x10E3/uL (0.0-0.8) 11/10/24: Eos [...] pH 5.5 (5.0-9.0) 11/10/24 23:15 Ur Specific [place] 1.010 (1.001-1.030) 11/10/24 23:15 Urine Protein Negative [...] <Electronically signed by Silvano Reed DO> 11/11/24329 [facility] Work Phone: History and physical note Author Gabriela Nobles [facility] Date/TimeOctober 2024 3:44[place] [address] Hospitalist H&P Signed Patient: Mary Mcadams MR#: [id number] : 1955 Acct:[id number] Age/Sex: 69 / M Adm Date: 5 Loc: Room: [address] [place] [address] Type: ADM IN Attending Dr: Gabriela Nobles MD Copies to: DO Gabriela Waller MD~ HPI DATE OF EXAMINATION: 02/16/25 CHIEF COMPLAINT: Shortness of breath HISTORY OF PRESENT ILLNESS: This is a 69-year-old male with past medical history of sarcoidosis with bronchiectasis who was recently admitted to [facility] on January 05 through January 09 due [...] noted below or in HPI [facility] Medical History H/O non-ST elevation myocardial infarction (NSTEMI) Takotsubo cardiomyopathy (~12/2024) History of sarcoidosis Acute on chronic hypoxic respiratory failure Non-ST elevation DC (NSTEMI) On home oxygen therapy Skin cancer [...] % (Auto) 18.5 % (.) 02/15/25 21:18 [place] % (Auto) 10.6 % (.) 02/15/25 21:18 Eos % (Auto) 2.7 % (.) 02/15/25 21:18 Baso % (Auto) 1.0 % (.) 02/15/25 21:18 Nucleat RBC Rel Count 0.0 /100 WBC (0-0.5) 02/15/25 21:18 Neut # (Auto) 4.3 x10E3/uL (1.8-7.7) 02/15/25 21:18 Lymph # (Auto) 1.2 x10E3/uL (1.00-4.8) 02/15/25 21:18 [place] # (Auto) 0.7 x10E3/uL (0.0-0.8) 02/15/25 21:18 [...] signed by Gabriela Nobles MD> 02/16/25 0344 [facility] Work Phone: History general Narrative - Reported* Type Description Date Medical History sarcoidosis Medical HistoryLung diseaseMedical HistoryCOPDSurgical Historymediastinoscopy Hospitalization Historywhen on coumadin he was bleeding outHospitalization HistoryBreathing Problems [facility]Action Other History general Narrative - Reported* Type Description Date Medical History sarcoidosis Medical HistoryLung diseaseMedical HistoryCOPDSurgical Historymediastinoscopy Surgical HistoryCOLONOSCOPYSurgical HistoryEGDHospitalization Historywhen on coumadin he was bleeding outHospitalization HistoryBreathing Problems [facility] Other History of Present illness NarrativePatient returns [...] changes in medical therapy and follow-up next year.-[facility] [address] DO Work Phone: Hospital course Narrative No data available for this section [facility] Hospital Discharge instructions No data available for this section [facility] InstructionsNot on filedocumented in this encounter [facility]ructionsNot on filedocumented in this encounter [facility] SystemInstructionsNot on filedocumented in this encounter [facility] note No data available for this section [facility] reason for referral (narrative)* Consultation (Routine) - AuthorizedSpecialtyDiagnoses / ProceduresReferred By ContactReferred To ContactCardiology Diagnoses Non-ischemic cardiomyopathy (Multi) Procedures Follow Up In Cardiology Steven Alvares MD [address] [place] [address] 2, [address] [address] Shannon Gonzalez MD [address] [place] [address] 2, [address] [address] Referral IDStatusReasonStjohnstown DateExpiration DateVisits RequestedVisits [id number] [facility] Work Phone: Reason for referral (narrative)No reason for referral information availableUniversity [facility]als [facility] Work Phone: Reason for visit Narrative* Cardiac Stress Testing (Routine) - AuthorizedSpecialtyDiagnoses / ProceduresReferred By Contact Referred To ContactRadiology Diagnoses Fatigue, unspecified type Non-ischemic cardiomyopathy (Multi) Diastolic dysfunction LV (left ventricular) mural thrombus 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 (Multi) Procedures Nuclear Stress Test CHG MYOCARDIAL SPECT MULTIPLE STUDIES Shannon Gonzalez MD [address] [place] [address] [address], [address] [address] Phone: tel: fax: Referral IDStatusReasonStjohnstown DateExpiration DateVisits RequestedVisits [id number]/10/20251/ [facility] Work Phone: reason for visit Narrative* Cardiac Stress Testing (Routine) - AuthorizedSpecialtyDiagnoses / ProceduresReferred By Contact Referred To ContactRadiology Diagnoses Fatigue, unspecified type Non-ischemic cardiomyopathy (Multi) Diastolic dysfunction LV (left ventricular) mural thrombus 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 (Multi) Procedures Nuclear Stress Test CHG MYOCARDIAL SPECT MULTIPLE STUDIES Shannon Gonzalez MD [address] [facility] [address], [address] [address] Phone: tel: fax: Referral IDStatusReasonStart DateExpiration DateVisits RequestedVisits [id number]/10/[id number]/10/[id number] [facility] Work Phone: reason for visit Narrative* CV Imaging (Routine) - AuthorizedSpecialtyDiagnoses / ProceduresReferred By ContactReferred To ContactCardiology Diagnoses Diastolic dysfunction Non-ischemic cardiomyopathy (Multi) LV (left ventricular) mural thrombus Procedures Transthoracic Echo Complete FL ECHO TTHRC R-T 2D W/WOM-MODE COMPL SPEC&COLR D Shannon Gonzalez MD [address] [facility] [address], [address] [address] Phone: tel: fax: Referral IDStatusReasonStart DateExpiration DateVisits RequestedVisits [id number] Perform Procedure [facility] Work Phone: reason for visit Narrative* Imaging (Routine) - AuthorizedSpecialtyDiagnoses / ProceduresReferred By ContactReferred To ContactRadiology Diagnoses Cardiac sarcoidosis Procedures MR cardiac morphology and function w and wo IV contrast Ning Godoy, ELEMENTARY PRINCIPAL-PALEONTOLOGY TEACHER [address] [facility] [address], [address] [address] Phone: tel: fax: Referral IDStatusReasonStart DateExpiration DateVisits RequestedVisits [id number] Perform Procedure [facility] Work Phone: Summary Purpose Family History [...] Documentation Amb Documentation CC Adult Risk Stratification [facility]:CHF-HIGH RISKReason for VisitAcoustic neuroma Anticoagulated Benign prostatic [...] Documentation Amb Documentation CC Adult Risk Stratification [facility]:CHF-HIGH RISK Encephalopathy Encephalopathy Encephalopathy EncephalopathyReason for VisitAcoustic [...] :02pm CC Adult Risk Stratification February 11:10am [facility]:CHF-HIGH RISK March 08, 2024 1 :23pm Encephalopathy [...] Date CC Adult Risk Stratification February 11:10am [facility]:CHF-HIGH RISK March 08, 2024 1 :23pm Encephalopathy [...] Amb Documentation November 12, 2024 8:50a m [facility] f/u-HIGH RISK November 19, 2024 11:39 am [...] Amb Documentation November 12, 2024 8:50a m [facility] f/u-HIGH RISK November 19, 2024 11:39 am [...] Amb Documentation November 12, 2024 8:50a m [facility] f/u-HIGH RISK November 19, 2024 11:39 am [...] sarcoidosis January 05, 2025 1:53am Non-ST elevation DC (NSTEMI) December 1:53am Reason for Visit Admit [...] sarcoidosis January 05, 2025 1:53am Non-ST elevation DC (NSTEMI) December 1:53am Takotsubo cardiomyopathy January 05 1:53am Chief Complaint Admit Date dif breathing November 11, 2024 3:15 am Amb Documentation November 12, 2024 8:50a m [facility] f/u-HIGH RISK November 19, 2024 11:39 am cataract January 02, 2025 3: 23pm Shortness of Breath January 05, 2025 1: 53am Amb Documentation January 10, 2025 7: 40am 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 Sarcoidosis January 21, 2025 [...] sarcoidosis January 05, 2025 1:53am Non-ST elevation DC (NSTEMI) December 1:53am Bronchiectasis, uncomplicated January 21, 2025 1:09pm Bullous emphysema January 21, 2025 1:09pm Cardiac sarcoidosis January 21, 2025 1:09pm Chronic respiratory failure with hypoxia January 21, 2025 1:09pm History of aspergilloma January 21, 2 025 1:09pm Pulmonary sarcoidosis January 21 1:09pm Chief Complaint Admit Date [facility] [place] [facility] f/u-HIGH RISK November 19, 2024 11:39 am cataract January 02, 2025 3: 23pm Shortness of Breath January 05, 2025 1: 53am Amb Documentation January 10, 2025 7: 40am 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 Sarcoidosis January 21, 2025 [...] sarcoidosis January 05, 2025 1:53am Non-ST elevation DC (NSTEMI) December 1:53am Bronchiectasis, uncomplicated January 21, [...] Amb Documentation January 10, 2025 7: 40am 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 Sarcoidosis January 21, 2025 1:09pm Shortness of Breath February 16, 2025 2: 24am Amb Documentation February 19, 2025 2: 40pm Reason for Visit Admit Date Takotsubo cardiomyopathy January 05 1:53am Acute on chronic hypoxic respiratory erika lure January 05, 2025 1:53am History of sarcoidosis January 05, 2025 1:53am Non-ST elevation DC (NSTEMI) December 1:53am Bronchiectasis, uncomplicated January 21, [...] Amb Documentation January 10, 2025 7: 40am 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 Sarcoidosis January 21, 2025 1:09pm Shortness of Breath February 16, 2025 2: 24am Amb Documentation February 19, 2025 2: 40pm Cataract March 13, 2025 9 :43am Reason for Visit Admit Date Takotsubo cardiomyopathy January 05 1:53am Acute on chronic hypoxic respiratory erika lure January 05, 2025 1:53am History of sarcoidosis January 05, 2025 1:53am Non-ST elevation DC (NSTEMI) December 1:53am Bullous emphysema January 21, [...] section and content) DATE CREATED AUTHOR 12/30/2018 [facility] DATE CREATED AUTHOR AUTHOR'S ORGANIZ ATION 04/30/2021 [facility] DATE CREATED AUTHOR AUTHOR'S ORGANIZ ATION 09/09/2022 [facility] DATE CREATED AUTHOR AUTHOR'S ORGANIZ ATION 01/25/2025 [facility] DATE CREATED AUTHOR AUTHOR'S ORGANIZ ATION 02/01/2025 [facility] DATE CREATED AUTHOR AUTHOR'S ORGANIZ ATION 03/04/2025 [facility] DATE CREATED AUTHOR AUTHOR'S ORGANIZ ATION 03/05/2025 [facility] DATE CREATED AUTHOR AUTHOR'S ORGANIZ ATION 03/14/2025 [facility] Care Teams (unrecognized [...] Date Adam Del Valle DO [address] [place] [address] PCP - GeneralInternal Medicine10/13/23 Team Status: Active [...] Date Adam Del Valle DO [address] [place] [address] [facility] - [facility] Team Status: Active Member Role Status [...] February 28, 2024 End: March 01, 2024Sin Mabry DOEmergendemetris ProviderActiveStart: February 28, 2024 End: March [...] Keita , APRNOther ProviderActiveStart: March 14, 2024 [place] L Franklin Schaffer, DOOther ProviderActiveStart: March 14, [...] ProviderActiveStart: March 14, 2024 Karina Morocho , [employer] P[employer]ER [employer]ILER-BCOther ProviderActiveStart: March 14, 2024 Lula Muniz , FAMILY SUPPORT COORDINATOR-CAttending ProviderActiveStart: March 14, 2024 Team Status: Active [...] ProviderActiveStart: March 15, 2024 Karina Morocho , [employer]ILER-BCOther ProviderActiveStart: March 15, 2024 Team Status: Active [...] ProviderActiveStart: March 16, 2024 Karina Morocho , [facility]-BCOther ProviderActiveStart: March 16, 2024 Eriberto Stover , [...] Adam Del Valle, DO [address] [place] [address] PCP - [facility]10/13/23 Team Status: Active Member Role Status [...] Adam Del Valle, DO [address] [place] [address] PCP - [facility]10/13/23 Team Status: Active Member Role Status Dates Adam Del Valle DO Primary Care Provide r, Attending Provider Active Start: April 09, 2024 Team MemberRelationshipSpecialtyStart DateEnd Date Adam Del Valle DO [address] [place] [address] PCP - [facility]10/13/23Team MemberRelationshipSpecialtyStart Date End Date Adam Del Valle DO [address] [place] [place] [address] PCP - [facility]10/13/23Team MemberRelationshipSpecialtyStart Date End Date Adam Del Valle, DO [address] [place] [address] PCP - [facility]10/13/23Team MemberRelationshipSpecialtyStart Date End Date Adam Del Valle DO [address] [place] [address] PCP - [facility]10/13/23 Team Status: Active Member Role Status [...] Del Valle DO [address] [place] [address] [facility] - [facility]10/13/23Team MemberRelationshipSpecialtyStart Date End Date Adam Del Valle DO [address] [place] [place] [address] PCP - [facility]10/13/23 Team Status: Active Member Role Status [...] Valle DO [address] [place] [address] [facility]/13/23 Team Status: Inactive Member Role Status [...] ProviderActiveStart: November 11, 2024 End: November 12, 2024Hoagn Conner DOAttending ProviderActiveStart: November 11, 2024 End: [...] Adam Del Valle DO [address] [place] [address] PCP - GeneralInternal Medicine10/13/23 Juliette Perla RN Care ManagerCase Management01/09/25Team MemberRelationshipSpecialtyStart DateEnd Date Adam Del Valle DO [address] [place] [address] PCP - GeneralInternal Medicine10/13/23 Juliette Perla RN [...] Adam Del Valle [place] [address] PCP - GeneralInternal Medicine10/13/23 Juliette Perla RN [facility]Phys[facility]01/09/25 Team Status: Active Member Role Status Dates [...] Start: March 13, 2025 End: March 13, 2025oJsue Beavers MDAttending ProviderActiveStart: March 13, 2025 End: March 13, 2025 Goals (unrecognized section and content) Type Treatment Intervention Code Status: Full Code Goals may be documented in an alternate section REASON FOR VISIT (unrecogniz ed section and content) ReasonCommentsFollow-up1 yrReasonCommentsAtrial FibrillationEKGSpecialty Diagnoses / ProceduresReferred By ContactReferred To Contact Diagnoses Atrial fibrillation, unspecified type (Multi) Procedures ECG 12 Lead Shannon Gonzalez MD [address] [facility], [place] [id number] Referral IDStatusReasonStjohnstown DateExpiration DateVisits RequestedVisits [id number]/23/20249/23/[id number]-mnJxylhzsai [facility] [place] 03/20SpecialtyDiagnoses / ProceduresReferred By ContactReferred To Contact Diagnoses Atrial fibrillation, unspecified type (Multi) Procedures ECG 12 Lead Shannon Gonzalez MD [address] [place], [place] [address]er [facility], [place] [phone] Phone: tel: fax: Referral IDStatusasonStjohnstown DateExpiration DateVisits RequestedVisits [id number]/13/202411/13/[id number] Follow-upHospital [facility]tyDiagnoses / ProceduresReferred By ContactReferred To ContactCardiology Diagnoses Non-ischemic cardiomyopathy (Multi) Procedures Follow Up In Cardiology Shannon Gonzalez MD [address] [place], [place] [address] [facility], [place] [phone] Phone: tel: fax: Shannon Gonzalez MD [address] [facility], [place] [id number] Phone: tel: fax: Referral IDStatReasonStjohn[place] DateExpiration DateVisits RequestedVisits [id number]/13/202411/13/[id number] visit SpecialtyDiagnoses / ProceduresReferred By ContactReferred To Contact Diagnoses Atrial fibrillation, unspecified type (Multi) Procedures ECG 12 Lead Shannon Gonzalez MD [address], [place] [address] [place], [place] [id number] Phone: tel: fax: Referral IDStatusReasonStart DateExpiration DateVisits RequestedVisits [id number]/25/20252/25/[id number]-eq0 month follow up Echo Stress resultsSpecialtyDiagnoses / ProceduresReferred By Contact Referred To ContactCardiology Diagnoses Non-ischemic cardiomyopathy (Multi) Procedures Follow Up In Cardiology Shannon Gonzalez MD [address], [place] [id number] Phone: tel: fax: Shannon Gonzalez MD [address], [place] [address] [place], [place] [phone] Phone: tel: fax: Referral IDStatusReasonStart DateExpiration DateVisits RequestedVisits [id number] Follow-upTCM for CardiomyopathySpecialtyDiagnoses / ProceduresReferred By ContactReferred To Contact Diagnoses High risk medication use Procedures ECG 12 Lead Ning Godoy, ELEMENTARY PRINCIPAL-PALEONTOLOGY TEACHER [address], [place] [phone] Phone: tel: fax: Referral IDStatusReasonStart DateExpiration DateVisits RequestedVisits [id number]/3/20259/3/[id number]-oqZMU visit SpecialtyDiagnoses / ProceduresReferred By ContactReferred To Contact Diagnoses High risk medication use Procedures ECG 12 Lead Ning Godoy, ELEMENTARY PRINCIPAL-PALEONTOLOGY TEACHER [address], [place] [address] [place] [address] Phone: tel: fax: Referral IDStatusReasonStart DateExpiration DateVisits RequestedVisits [id number]/4/20259/4/202611 FOR RECORDS PERTAINING TO PATIENTS WHO ARE [...] BE BASED ON THE PRIMARY CLINICAL RECORDS. [employer] [facility]. provides no warranty or guarantee of the accuracy or completeness of information in this document.
--- NOTE | 2025-03-16 18:28 | PM.HP ---
HPI H&P: HPI History of Present Illness Chief complaint: Sarcoidosis COPD Exacerbation Narrative: This is a 69-year-old man who came to the [place] ER today with worsening shortness of breath and increased work of breathing. He has had a long history of pulmonary sarcoidosis. He uses 3 L of oxygen by nasal cannula all the time at home. In the emergency room he was given nebulizer treatments. He was given Solu-Medrol. His cardiac enzymes were okay. Chest x-ray did not show any evidence of pneumonia. But he continued to be tachypneic and had increased work of breathing. So the ER doctor requested that the patient be admitted overnight. The patient was treated recently at [facility], at the beginning of February and was discharged with antibiotics and guaifenesin. 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 In the past he saw cardiology with Dr. Alvares. 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 Nowadays he sees cardiology with Dr. Santana for his atrial fibrillation. The patient says that about a month ago he got a cardiac MRI in [place] and he said that everything was OK but he cannot answer my question about whether they saw any cardiac sarcoidosis on that MRI or not. He told his his admitting nurse that he has now been hospitalized 6 times for this shortness of breath and exacerbation of his lung disease. When I see him he tells me once I get out of the hospital I feel okay for the first week or so and then once those steroids wear out I feel bad again. The way his medication list looks it appears that he takes chronic prednisone at 5 mg daily. He indicates that he gets limited ambulation around his house. He says there are things that I can hold onto so I get by. He also wants to get better quickly because on or around the of the of March(so in less than 2 weeks) he needs to have cataract surgery on his left eye in [place] at the hospital by Dr. Beavers (out of the [facility] He says that he has to get his surgery done at the hospital because of his breathing risk. 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 He has been trying to get the cataract surgery done for a long time but every time his cataract surgery date comes up he finds himself in the hospital. I do not have records to his [facility] stays as the computer here at [place] does not communicate with the computer in [place] but I believe I took care of him at [facility] about a year ago when he was admitted primarily for uncontrolled atrial fibrillation. Quality: Safe Use of Opioids Is the patient undergoing opioid medication assisted treatment that includes methadone, buprenorphine, and/or naltrexone: No Opioid HPI Opioid Management Most Recent Pain and Opioid Data: Last Pain Scale 0 Today, 16:40 Last Pain Assessment Today, 18:07 Last ORT Total Score 6 Today, 16:40 Last ORT Risk Category Moderate Risk Today, 16:40 Ur Phencyclidine Scrn, (NEGATIVE) Negative 03/13/24, 16:35 Review of Systems ROS Narrative 10 point review of systems is negative except as mention above in the history present illness. [facility] Medical History (Updated 03/16/25 @ 18:36 by DENISHA MORALES) Atrial fibrillation with rapid ventricular response ?I48.91 - Unspecified atrial fibrillation (ICD-10) Sarcoidosis of lung ?D86.0 - Sarcoidosis of lung (ICD-10) Alcoholism ?F10.20 - Alcohol dependence, uncomplicated (ICD-10) Cardiomyopathy, nonischemic ?I42.8 - Other cardiomyopathies (ICD-10) Atrial fibrillation ?I48.91 - Unspecified atrial fibrillation (ICD-10) Surgical History H/O right knee surgery ?Z98.890 - Other specified postprocedural states (ICD-10) Family History Mother Family history of CHF (congestive heart failure) Family history of diabetes mellitus Family history of hypertension Family history of myocardial infarction Father Family history of cancer Social History Within the past year, how often did you have a drink containing alcohol: never Within the past year, how often did you have six or more drinks on one occasion: never Score interpretation: A score less than 4 is consistent with normal alcohol consumption. 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 Known occupational exposures/hazards: No Highest level of school completed/degree received: high school graduate Do you want help with school or training: No Are you now , , , , never or living with a partner: In a typical week, how many times do you talk on the telephone with family, friends, or neighbors: 3 or more times per week How often do you get together with friends or relatives: 3 or more times per week How often do you attend advent or orthodoxy services: never Do you belong to any clubs or organizations such as advent groups unions, Vend or athletic groups, or school groups: no Total score: 1 Score interpretation: A score of less than or equal to 1 indicates the most socially isolated. Little interest or pleasure in doing things: not at all Feeling down, depressed, or hopeless: not at all Feel stressed/tense/nervous/anxious/difficulty sleeping: not at all Due to disability, difficulty making decisions: No Do you think of yourself as: straight/heterosexual Gender Identity: male Meds Home Medications and Allergies Home Medications ?Medication ?Instructions ?Recorded ?Confirmed ?Type albuterol sulfate 90 mcg/actuation 2 inh inhalation Q4H PRN shortness 02/02/24 03/16/25 History aerosol inhaler of breath or wheezing finasteride 5 mg tablet 5 mg PO DAILY 02/02/24 03/16/25 History ipratropium 0.5 mg-albuterol 3 mg 3 ml inhalation QID 02/02/24 03/16/25 History (2.5 mg base)/3 mL nebulization soln ipratropium bromide 0.02 % 2.5 ml inhalation Q6H 02/02/24 03/16/25 History solution for inhalation pantoprazole 40 mg tablet,delayed 40 mg PO DAILY 02/02/24 03/16/25 History release tamsulosin 0.4 mg capsule 0.4 mg PO BID 02/02/24 03/16/25 History aspirin 81 mg tablet,delayed 81 mg PO DAILY 03/16/25 03/16/25 History release atorvastatin 40 mg tablet 40 mg PO DAILY 03/16/25 03/16/25 History dapagliflozin propanediol 10 mg 10 mg PO DAILY 03/16/25 03/16/25 History tablet (Farxiga) dofetilide 250 mcg capsule 250 mcg PO BID 03/16/25 03/16/25 History latanoprost 0.005 % eye drops 1 drp ophthalmic (eye) DAILY 03/16/25 03/16/25 History magnesium oxide 400 mg (241.3 mg 400 mg PO DAILY 03/16/25 03/16/25 History magnesium) tablet metoprolol succinate 25 mg 25 mg PO DAILY 03/16/25 03/16/25 History tablet,extended release 24 hr rivaroxaban 20 mg tablet (Xarelto) 20 mg PO DAILY 03/16/25 03/16/25 History spironolactone 25 mg tablet 12.5 mg PO DAILY 03/16/25 03/16/25 History valacyclovir 1 gram tablet 1,000 mg PO BID 03/16/25 03/16/25 History Allergies Allergy/AdvReac Type Severity Reaction Status Date / Time No Known Drug Allergies Allergy Verified 03/16/25 14:03 Exam Narrative Exam Narrative: General: Sitting bolt upright in bed, feeding himself dinner, on 3 L oxygen by nasal cannula. Pulmonary: Diminished breath sounds throughout. No obvious wheezes. Does have increased work of breathing. Is using accessory muscle use. Cardiac: Regular rate. No murmurs to auscultation. Skin: Warm and dry and well-perfused. No systemic rashes or lesions. Lower extremities: No edema in his ankles at all. Muscle status: Does have decreased muscle mass consistent with a mild to moderate amount of pulmonary cachexia. His weight is 60.3 kg. GI: Abdomen soft, normal bowel sounds to auscultation. Nontender to palpation. Psychiatric: Friendly. Mood and affect are normal. Neurologic: A&O x 3. No neurologic deficits. Neck: No thyromegaly. No lymphadenopathy. Eyes: He clearly has a hard time seeing me. He has a slight disconjugate gaze. He says that he has been blind in his right eye for a long time. But even with his good left eye because the cataract is so bad he has hard time seeing me. I do not see any scleral injection. Constitutional Vital Signs, click to edit/add: Last Vital Signs Temp 97.9 F 03/16/25 16:40 Pulse 92 H 03/16/25 16:40 Resp 18 03/16/25 16:40 BP 152/82 H 03/16/25 16:40 Pulse Ox 98 03/16/25 16:40 O2 Del Method Nasal Cannula 03/16/25 16:40 O2 Flow Rate 3 03/16/25 16:40 Results Labs Labs: Short CBC 03/16/25 Range/Units 14:17 WBC 5.1 (4.0-11.0) 10^3/uL Hgb 10.2 L (14.0-18.0) g/dL Hct 31.5 L (42.0-54.0) % Plt Count 192 (150-450) 10^3/uL BMP 03/16/25 14:17 Sodium 138 Potassium 3.7 Chloride 103 Carbon Dioxide 28.8 BUN 8.0 Creatinine 1.11 Glucose 134 H Calcium 8.4 L Assessment and Plan Assessment and Plan (1) COPD exacerbation: Plan Assessment:: Acute exacerbation of chronic obstructive pulmonary disease/chronic pulmonary sarcoidosis. High risk of exacerbation due to chronic low-dose corticosteroid use of 5 mg of prednisone daily. Reported history of concern for cardiac sarcoid, but this should have been answered definitively with the MRI that he had recently in [place]. History of atrial fibrillation. On antiarrhythmic medication in the form of dofetilide for rate control and anticoagulated with Xarelto. History of nonischemic cardiomyopathy. 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 Chronic hypoxic respiratory failure requiring 3 L oxygen by nasal cannula at all times. Plan: Observation status. DuoNebs scheduled 4 times a day with as needed albuterol every 3 hours if he has coughing or wheezing episodes. I will not use antibiotics at this time. Sputum culture is requested. Guaifenesin as a mucolytic. Consult to physical therapy. Recheck labs in the morning. Solu-Medrol 60 mg IV every 8 hours. Oral Protonix 40 mg daily. GI protection while on corticosteroids.
[2025-03-16] MEDS: METHYLPREDNISOLONE SOD SUCC PF 125 MG/2 ML VIAL 60 MG IVP (21:16)
[2025-03-16] MEDS: VALACYCLOVIR HCL 500 MG TABLET 1000 MG PO (21:16)
[2025-03-16] MEDS: DOFETILIDE 125 MCG CAPSULE 250 MCG PO (21:17)
[2025-03-16] MEDS: TAMSULOSIN HCL 0.4 MG CAPSULE PO (21:17)
[2025-03-17] VITALS (7 sets, daily range): BP systolic 100–138; BP diastolic 63–79; PULSE 79–103; TEMP 36.5–36.6; O2SAT 96–98
[2025-03-17] MEDS: IPRATROPIUM/ALBUTEROL SULFATE 3 ML AMPUL.NEB IH ×3 (05:14→15:43)
[2025-03-17 05:30] LABS: Hematocrit 30.8 % (42.0-54.0); Hemoglobin 10.0 g/dL (14.0-18.0); Immature Granulocytes Abs Auto 0.00 10^3/uL (0.00-0.03); Immature Granulocytes Pct Auto 0.0 % (0.0-0.5); Lymphocytes Absolute Auto 0.3 10^3/uL (1.2-3.8); Mean Corpuscular HGB Conc 32.5 g/dL (29.9-35.2); Mean Corpuscular Hemoglobin 30.1 pg (25.9-34.0); Mean Corpuscular Volume 92.8 fL (80.0-94.0); Platelet Count 230 10^3/uL (150-450); Red Blood Count 3.32 10^6/uL (4.70-6.10); White Blood Count 2.5 10^3/uL (4.0-11.0)
[2025-03-17] MEDS: METHYLPREDNISOLONE SOD SUCC PF 125 MG/2 ML VIAL 60 MG IVP (05:33)
[2025-03-17 05:38] LABS: Anion Gap 12.6; Blood Urea Nitrogen 13.0 mg/dL (7.0-18.0); Calcium 9.0 mg/dL (8.5-10.1); Carbon Dioxide 26.4 mmol/L (21.0-32.0); Chloride 102 mmol/L (98-107); Estimated GFR (African America >60 (>=60 mL/min/1.73m^2); Estimated GFR (Non-African Ame >60 (>=60 mL/min/1.73m^2); Glucose 212 mg/dL (74-106); Potassium 4.0 mmol/L (3.5-5.1); Sodium 137 mmol/L (136-145)
--- NOTE | 2025-03-17 07:40 | CM.NOTE ---
Rounds made with Dr. Yanez, pt will discharge to home today and f/u with PCP and pulmonary ([facility]). Pt has home oxygen at 3L NC. PT will evaluate pt prior to discharge.
[2025-03-17] MEDS: RIVAROXABAN 10 MG TABLET 20 MG PO (09:08)
[2025-03-17] MEDS: ATORVASTATIN CALCIUM 40 MG TABLET PO (09:08)
[2025-03-17] MEDS: METOPROLOL SUCCINATE 25 MG TAB.ER.24H PO (09:08)
[2025-03-17] MEDS: DAPAGLIFLOZIN 5 MG TABLET 10 MG PO (09:08)
[2025-03-17] MEDS: MAGNESIUM OXIDE 400 MG TABLET PO (09:08)
[2025-03-17] MEDS: DOFETILIDE 125 MCG CAPSULE 250 MCG PO (09:08)
[2025-03-17] MEDS: VALACYCLOVIR HCL 500 MG TABLET 1000 MG PO (09:08)
[2025-03-17] MEDS: TAMSULOSIN HCL 0.4 MG CAPSULE PO (09:09)
[2025-03-17] MEDS: ASPIRIN 81 MG TABLET.DR PO (09:09)
[2025-03-17] MEDS: FINASTERIDE 5 MG TABLET PO (09:09)
[2025-03-17] MEDS: SPIRONOLACTONE 25 MG TABLET 12.5 MG PO (09:09)
[2025-03-17] MEDS: PANTOPRAZOLE SODIUM 40 MG TABLET.DR PO (09:09)
--- NOTE | 2025-03-17 09:23 | SWNOTE1 ---
ASHTYN called [facility] and pt's home oxygen is for 2 liters continuous and it was updated in August of [address] Muniz. ASHTYN to let case management know.
--- NOTE | 2025-03-17 09:29 | SWNOTE1 ---
ASHTYN did call [facility] and pt is current with them and only has nursing at this time. He has had [facility] since December and had PT/OT initially, but met all his goals.
--- NOTE | 2025-03-17 09:57 | CM.NOTE ---
Addendum entered by Zeenat Loyola 03/17/25 11:40: CM also spoke with pt in regarding to Pulmonary rehab. Pt has not ever done Pulmonary rehab, pt provided education on Pulmonary rehab. Pt will speak with motel food service supervisor in regards to rehab at f/u. Original Note: CM in to speak with pt about COPD. Pt is active with Pulmonology (Tania). Spoke with pt about PT recommendations and HH services, pt has [facility] (nurse). Pt is interested in home PT also, CRF completed for HH services at discharge. Pt does use a walker at home and has home oxygen.
--- NOTE | 2025-03-17 09:58 | SWNOTE1 ---
PT did recommend adding on PT services to home health.
--- NOTE | 2025-03-17 10:40 | P.DS_ITS ---
DS: Providers Provider Date of admission: 03/16/25 16:22 Primary care physician: Adam Wylie DO Consults: 03/16/25 Consult to Dietitian Routine Reason for consultation: Weight Loss Has provider been notified: No 03/16/25 18:23 Physical Therapy Eval and Treat Routine Reason for consultation: pulmonary rehab DS: Diagnosis Discharge Diagnosis (1) COPD exacerbation: Plan As listed above, below and others that are not listed DS: Summary Hospital Course Hospital Course: Mr. Mcadams is a 69-year-old gentleman with a known diagnosis of COPD, chronic hypoxic respiratory failure and sarcoidosis. Patient came in with worsening cough and wheezing. No fever or chills. No chest pain or palpitation. Acute COPD exacerbation Sarcoidosis, probable acute inflammatory process but not confirmed. Chronic hypoxic respiratory failure on 3 L per Patient responded well to aerosol bronchodilators as well as corticosteroid. Patient is back to baseline state. Currently patient respiratory rate is about 16. Saturation is 98% on 3 L per Patient is afebrile Chest x-ray showed chronic changes. Requested D-dimer just to make sure that he does not have a PE. I started him on LABA and CSI Consideration to start him on LAMA. Patient is to follow-up with pulmonary team on discharge. Chronic A-fib. Patient is on Xarelto, Toprol and dofetilide Patient is to follow-up with Dr. Simon Hardin, no evidence of acute blood loss. Patient will likely require to have anemia workup to be done in the outpatient setting to be handled by PCP in collaboration with other needed outpatient providers. This may include but not limited to EGD, colonoscopy, referral to see hematology and other needed age-appropriate cancer screening. Diabetes Patient is on Farxiga Further diabetes management is by PCP. Chronic, subacute medical conditions not listed above, abnormal labs and imaging, incidental findings seen on labs and or imaging. These would need to be addressed. Could be addressed later on or in the outpatient setting by PCP collaboration with other needed outpatient providers when time and condition are appropriate. Patient has multiple complex medical issues as listed above and others that are not listed. All appear to be stable. I do not have any clear or strong clinica l justification to extend inpatient hospitalization. Patient however will require close and frequent monitoring as well as additional work-up, investigation and therapeutic intervention that could take place from this point on post discharge. That is to prevent relapse, decompensation, rehospitalization and other medical implications.. I instructed patient to ask her primary care doctor to obtain [facility] record entirely to address abnormalities seen on labs and imaging that I have and have not addressed during this hospitalization, follow-up on pending blood work, imaging and pathology is if available and to follow-up on needed medical care in the outpatient setting. Time Spent with Patient Time attestation: Total time spent providing and/or coordinating discharge services: Exam Constitutional Vital Signs, click to edit/add: Last Vital Signs Temp 97.7 F 03/17/25 07:28 Pulse 88 03/17/25 07:28 Resp 18 03/17/25 07:28 BP 129/77 03/17/25 07:28 Pulse Ox 98 03/17/25 07:28 O2 Del Method Nasal Cannula 03/17/25 07:28 O2 Flow Rate 3 03/17/25 07:28 DS: Data Data Completed and Pending Labs on day of discharge: Labs from last 24 hours 03/17/25 03/16/25 05:00 14:17 WBC 2.5 L 5.1 RBC 3.32 L 3.29 L Hgb 10.0 L 10.2 L Hct 30.8 L 31.5 L MCV 92.8 95.7 H MCH 30.1 31.0 MCHC 32.5 32.4 RDW 17.1 H 17.2 H Plt Count 230 192 MPV 9.8 8.5 L Neut % (Auto) 87.2 H 67.2 Lymph % (Auto) 11.2 L 16.4 L [place] % (Auto) 1.6 L 8.4 Eos % (Auto) 0.0 L 7.4 H Baso % (Auto) 0.0 L 0.4 Neut # (Auto) 2.2 3.4 Lymph # (Auto) 0.3 L 0.8 L [place] # (Auto) 0.0 L 0.4 Eos # (Auto) 0.0 0.4 Baso # (Auto) 0.0 0.0 Abs Immat Gran (auto) 0.00 0.01 Imm/Tot Granulo (auto) 0.0 0.2 Sodium 137 138 Potassium 4.0 3.7 Chloride 102 103 Carbon Dioxide 26.4 28.8 Anion Gap 12.6 9.9 BUN 13.0 8.0 Creatinine 0.83 1.11 Est GFR ( Amer) >60 >60 Est GFR (Non-Af Amer) >60 >60 BUN/Creatinine Ratio 15.7 7.2 Glucose 212 H 134 H Calcium 9.0 8.4 L Troponin I High Sens 9.0 NT-Pro-B Natriuret Pep 650.0 Discharge Plan Discharge Disposition: Home Health Service Discharge Medications: New prednisone 10 mg tablet 10 mg PO .as directed Qty: 20 0RF Rx Instructions: Take 1 tablet twice a day for 5 days then 1 tablet daily for 10 days budesonide-formoterol [Symbicort] 80-4.5 mcg/actuation HFA aerosol inhaler 1 inh inhalation BID Qty: 10.2 1RF Continued albuterol sulfate 90 mcg/actuation HFA aerosol inhaler 2 inh INHALATION Q4H PRN (Reason: shortness of breath or wheezing) finasteride 5 mg tablet 5 mg PO DAILY pantoprazole 40 mg tablet,delayed release (DR/EC) 40 mg PO DAILY tamsulosin 0.4 mg capsule 0.4 mg PO BID dofetilide 250 mcg capsule 250 mcg PO BID spironolactone 25 mg tablet 12.5 mg PO DAILY latanoprost 0.005 % drops 1 drp OPHTHALMIC (EYE) DAILY aspirin 81 mg tablet,delayed release (DR/EC) 81 mg PO DAILY Xarelto 20 mg tablet 20 mg PO DAILY Rx Instructions: must administer with evening meal metoprolol succinate 25 mg tablet extended release 24 hr 25 mg PO DAILY valacyclovir 1 gram tablet 1,000 mg PO BID magnesium oxide 400 mg (241.3 mg magnesium) tablet 400 mg PO DAILY atorvastatin 40 mg tablet 40 mg PO DAILY dapagliflozin propanediol [Farxiga] 10 mg tablet 10 mg PO DAILY Changed ipratropium-albuterol 0.5 mg-3 mg(2.5 mg base)/3 mL solution for nebulization 3 ml INHALATION QID PRN (Reason: Wheezing and shortness of breath) Qty: 0 0RF Print Language: Mongolian Activity Restrictions/Additional Instructions: I may not have addressed or treated all of your medical illnesses or the abnormal blood work or imaging studies during this hospitalization. Please ask your primary care provider to obtain [facility] [place] records entirely to follow up on all of the abnormal physical, laboratory, and imaging findings that I have not addressed. Please return back to the emergency room or seek medical attention if your symptoms worsen or return. Check your blood sugar 3 times a day before meals. Document these numbers on a blood glucose log and bring them with you to your follow-up appointment with your primary care doctor. Communicate with your primary care doctor or medical care evaluation specialist if your blood sugar is under 100 or above 300 on 2 consecutive checks. Communicate with your primary care doctor or medical care evaluation specialist if you have any questions about your diabetes medications. Signs of a low blood sugar include sweating, racing heart, dizziness and/or weakness. Check your blood sugar if you have any of the symptoms. Discharging you from [facility] does not mean that your medical care ends here and now. You may still need additional monitoring, work up, investigation, and treatment plan to be handled from this point on by out patient providers including your primary care provider and specialists. For any medication question, please contact your retail pharmacist or your primary care provider. Thank you. Gold Layer/Chemical Technician Instructions: Discharge with [facility], skilled nurse and PT Most recent prescription for home oxygen is from 09/[address] Mnuiz for 2 liters continuous. Forms: Portal Instructions Follow Up Appointments: Dr Wylie Mar @2:30 Dr Muniz May @ 2:45pm phone [phone] office said to call if you need something sooner.
--- NOTE | 2025-03-17 11:41 | CM.NOTE ---
Medicare Outpatient Observation Notice discussed with pt, pt verbalizes understanding and signs paper. Original given to pt and copy placed on pt's chart.
--- NOTE | 2025-03-18 13:36 | CM.DCFOLLOWU ---
Person spoke with: Carson How are you feeling? Much better How is your pain? No pain Did you understand your discharge instructions? Yes Do you have any questions about your discharge instructions? No Were you given any prescriptions at discharge? Yes Were you able to get your prescriptions filled? Yes Do you understand how to take your medications as ordered? Yes Do you have any questions about your follow up appointment and do you plan to keep your follow up appointment? No questions and plan on going to f/u appt Is there anything else that you would like to discuss? No Questions/Comments/Concerns/Other:
== END 2025-03-17 16:40 | disposition home health service (06) ==
LOC: ER 15:49 → MS 16:29
PROVIDERS: Internal Medicine; Admitting Provider Hospitalist; Emergency Provider Emergency Medicine; PCP Internal Medicine; Visit Provider Hospitalist
DX: J44.1 Chronic obstructive pulmonary disease with (acute) exacerbation (principal); D86.0 Sarcoidosis of lung; Z99.81 Dependence on supplemental oxygen; R64 Cachexia; Z68.1 Body mass index [BMI] 19.9 or less, adult; Z79.52 Long term (current) use of systemic steroids; Z79.01 Long term (current) use of anticoagulants; Z79.899 Other long term (current) drug therapy; I42.8 Other cardiomyopathies; H54.3 Unqualified visual loss, both eyes; J96.11 Chronic respiratory failure with hypoxia; I48.20 Chronic atrial fibrillation, unspecified; D64.9 Anemia, unspecified; E11.9 Type 2 diabetes mellitus without complications; Z79.84 Long term (current) use of oral hypoglycemic drugs
CPT/HCPCS: 36415; 71045; 80048; 83880; 84484; 85025; 85378; 87070; 87205; 93005; 94640; 94761; 96374; 96376; 97161; 99285; G0378; J2919